=== PATIENT | female | born 1970 | race Caucasian/White ===

== ENCOUNTER 2023-01-17 08:26 | Outpatient (RCR) | payer OTHER, SELFPAY | END 2023-02-08 11:53 | disposition home or self-care (01) | LOC: PT 08:26 | PROVIDERS: PCP Family Medicine | DX: M54.12 Radiculopathy, cervical region (principal) | CPT/HCPCS: 97012; 97140 ==

== ENCOUNTER 2023-03-21 11:47 | Emergency (ER) | payer OTHER, SELFPAY ==
[2023-03-21 11:53] VITALS: BP 126/73; PULSE 69; RESP 20; TEMP 36.3; O2SAT 99; BMI 28.2
--- NOTE | 2023-03-21 12:12 | PC.NURSE ---
pt wears 3L of O2 at all times
--- NOTE | 2023-03-21 12:22 | ED_ITS ---
HPI - Back Pain/Injury General Chief Complaint: Back Pain/Injury Stated Complaint: BACK PAIN Time Seen by Provider: 03/21/23 12:07 Source: patient Mode of arrival: walk-in Limitations: no limitations History of Present Illness HPI Narrative: 52-year-old female presents for lower back pain. She fell a week ago. She was in pain management but she states she switching in part because she missed an appointment. She is vague on why exactly she is changing pain management doctors. Her pain is severe and continuous and worse when she moves. Related Data Previous Rx's Medication Instructions Recorded acetaminophen 300 mg-codeine 30 mg 1 tab PO Q6H PRN pain #14 tabs 03/21/23 tablet ibuprofen 800 mg tablet 800 mg PO Q8H PRN pain #20 tabs 03/21/23 Review of Systems ROS Narrative A ten point review of systems is negative except as noted above. Exam Narrative Exam Narrative: Nurses note and vital signs reviewed and patient is not hypoxic. General: The patient appears uncomfortable and is in no apparent distress. Her hips are flexed and she is laying on the examination cart. Skin: Warm, dry, no pallor noted. There is no rash noted. Head: Normocephalic, atraumatic Eye: Normal conjunctiva, no drainage Ears, Nose, Mouth, and Throat: oral mucosa is moist. Nares patent. Cardiovascular: Regular Rate and Rhythm Respiratory: Patient is in no distress, no accessory muscle use, lungs are clear to auscultation, no wheezing, rales or rhonchi Back: no bruise or abrasion or erythema or rash GI: nontender Musculoskeletal: The patient has no evidence of calf tenderness, no pitting edema, symmetrical pulses noted bilaterally Neurological: A&O, normal speech Psychiatric: Cooperative Constitutional Vital Signs, click to edit/add: Last Vital Signs Temp 97.4 F L 03/21/23 11:53 Pulse 69 03/21/23 11:53 Resp 20 03/21/23 11:53 BP 126/73 03/21/23 11:53 Pulse Ox 99 03/21/23 11:53 O2 Del Method Nasal Cannula 03/21/23 12:12 O2 Flow Rate 3 03/21/23 12:12 Course Vital Signs Vital signs: Vital Signs Temperature 97.4 F L 03/21/23 11:53 Pulse Rate 69 03/21/23 11:53 Respiratory Rate 20 03/21/23 11:53 Blood Pressure 126/73 03/21/23 11:53 Pulse Oximetry 99 03/21/23 11:53 Oxygen Delivery Method Nasal Cannula 03/21/23 11:53 Oxygen Delivery Flow Rate 3 03/21/23 11:53 Temperature 97.4 F L 03/21/23 11:53 Pulse Rate 69 03/21/23 11:53 Respiratory Rate 20 03/21/23 11:53 Blood Pressure 126/73 03/21/23 11:53 Pulse Oximetry 99 03/21/23 11:53 Oxygen Delivery Method Nasal Cannula 03/21/23 12:12 Oxygen Delivery Flow Rate 3 03/21/23 12:12 MDM - Back Pain/Injury MDM Narrative Medical decision making narrative: x-rays per radiologist showed no acute findings. She is in the process of get ting into pain management, referred by her neurologist. She'll be treated symptomatically. Treatment diagnosis and follow-up were discussed with the patient. Differential Diagnosis Differential diagnosis: Likely lumbar radiculopathy, sciatica and strain of lumbar region Imaging Data lumbar x-rays: Radiologist's impression: lumbar x-rays per radiologist show degenerative changes, no acute findings Discharge Plan Discharge Chief Complaint: Back Pain/Injury Clinical Impression: Strain of lumbar region Patient Disposition: Home, Self-Care Time of Disposition Decision: 14:01 Condition: Good Mode of Transportation: Private Vehicle Prescriptions / Home Meds: New ibuprofen 800 mg tablet 800 mg PO Q8H PRN (Reason: pain) Qty: 20 0RF acetaminophen-codeine 300-30 mg tablet 1 tab PO Q6H PRN (Reason: pain) Qty: 14 0RF Instructions: Chronic Back Pain (DC) Stand Alone Forms: Portal Instructions Referrals: IVON GIRON [Primary Care Provider] - 1 week
[2023-03-21] MEDS: ORPHENADRINE 60 MG/ 2 ML VIAL IM (12:29)
--- NOTE | 2023-03-21 13:01 | XR_ITS ---
The [address] [address] Patient Name: ROCK HERRERA MRN: [id number] date: 1970 Sex: F Assigned Patient Location: ER Current Patient Location: ER Accession/Order Number: [id number] Exam Date: 03/21/2023 12:15 Report Date: 03/21/2023 13:55 At the request of: TUTU NOLASCO Procedure: XR lumbar spine 2-3V EXAMINATION: XR lumbar spine 2-3V HISTORY: pain ; acute low back pain radiating to buttock region; no known injury COMPARISON: No relevant comparison available. FINDINGS: BONES: Mild degenerative facet arthropathy L3-4 through L5-S1. No fracture or spondylolisthesis. DISC SPACES: Mild narrowing L4-5, L5-S1. PARASPINOUS: Negative. No paraspinous abnormality is seen. OTHER: Negative. XR/XR lumbar spine 2-3V IMPRESSION: 1. Mild degenerative changes of lower lumbar spine. 2. No appreciable acute abnormality. Electronically authenticated by: DELORES ROACH Date: 03/21/2023 13:55
== END 2023-03-21 14:21 | disposition home or self-care (01) ==
PROVIDERS: Emergency Provider Emergency Medicine; PCP Family Medicine
DX: S39.012A Strain of muscle, fascia and tendon of lower back, initial encounter (principal); W19.XXXA Unspecified fall, initial encounter
CPT/HCPCS: 72100; 96372; 99284

== ENCOUNTER 2023-05-08 16:03 | Outpatient (OUT) | payer OTHER, SELFPAY ==
[2023-05-08 16:28] LABS: Basophils Absolute Auto 0.1 10^3/uL (0.0-0.1); Basophils Percent Auto 0.7 % (0.2-2.0); Eosinophils Absolute Auto 0.2 10^3/uL (0.0-0.7); Eosinophils Percent Auto 1.2 % (0.9-7.0); Hematocrit 37.6 % (36.0-48.0); Hemoglobin 12.5 g/dL (12.0-16.0); Immature Granulocytes Abs Auto 0.12 10^3/uL (0.00-0.03); Immature Granulocytes Pct Auto 0.9 % (0.0-0.5); Lymphocytes Absolute Auto 4.4 10^3/uL (1.2-3.8); Lymphocytes Percent Auto 32.7 % (20.5-60.0); Mean Corpuscular HGB Conc 33.2 g/dL (29.9-35.2); Mean Corpuscular Hemoglobin 31.4 pg (26.7-34.0); Mean Corpuscular Volume 94.5 fL (81.0-99.0); Monocytes Absolute Auto 0.8 10^3/uL (0.3-0.8); Monocytes Percent Auto 5.9 % (1.7-12.0); Neutrophils Percent Auto 58.6 % (43.0-75.0); Platelet Count 222 10^3/uL (150-450); Red Blood Count 3.98 10^6/uL (4.20-5.40); Red Cell Distribution Width 15.3 % (11.0-15.0); White Blood Count 13.6 10^3/uL (4.0-11.0)
[2023-05-08 16:35] LABS: Anion Gap 11.7; BUN Creatinine Ratio 5.9; Calcium 8.8 mg/dL (8.5-10.1); Carbon Dioxide 30.8 mmol/L (21.0-32.0); Chloride 103 mmol/L (98-107); Estimated GFR (African America >60 (>=60); Estimated GFR (Non-African Ame 57 (>=60); Glucose 180 mg/dL (74-106); Potassium 3.5 mmol/L (3.5-5.1); Sodium 142 mmol/L (136-145)
== END 2023-05-08 16:04 | disposition home or self-care (01) ==
LOC: CARD 16:09
PROVIDERS: PCP Family Medicine
DX: M76.71 Peroneal tendinitis, right leg (principal)
CPT/HCPCS: 36415; 80048; 85025

== ENCOUNTER 2023-05-09 14:20 | Outpatient (OUT) | payer OTHER, SELFPAY ==
--- NOTE | 2023-05-09 14:29 | ECG_ITS ---
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
== END 2023-05-09 14:21 | disposition home or self-care (01) ==
LOC: CARD 14:21
PROVIDERS: PCP Family Medicine
DX: M76.71 Peroneal tendinitis, right leg (principal)
CPT/HCPCS: 93005

== ENCOUNTER 2023-05-18 20:51 | Emergency (ER) | payer OTHER, SELFPAY ==
[2023-05-18] VITALS (27 sets, daily range): BP systolic 99–137; BP diastolic 65–105; PULSE 67–144; RESP 14–26; O2SAT 94–99
--- NOTE | 2023-05-18 22:03 | PC.NURSE ---
patient states she was at home and began to feel her heart rate increase, checked it at home and it was in the 210s . patient denies dizziness, lightheadedness. complains of shortness of breath with heart rate. patient states this happened before and was just told it was tachycardia , was not started on any cardiac meds. states she saw her pricer a few days ago and everything was normal. EKG obtained and provided to dr turner.
--- NOTE | 2023-05-18 22:06 | ECG_ITS ---
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: : 1970 Requested By: IVON GIRON Order Number: [id number] Reading MD: WILLA GAINES Measurements Intervals [place] Rate: 136 P: -79063 IL: -97035 QRS: 31 QRSD: 80 T: 230 QT: 260 QTc: 339 Interpretive Statements 1420 Undetermined rhythm (Possible supraventricular tachycardia) [address] depression 4364 Twave abnormality, possible anterolateral ischemia 4664 Twave abnormality, possible inferior ischemia 8305 Short QTc interval 9150 abnormal ECG Compared to ECG 05/09/2023 14:44:24 ST (T wave) deviation now present Sinus rhythm no longer present T-wave abnormality no longer present Possible ischemia still present Electronically Signed On 05-19-2023 18:42:38 EDT by WILLA GAINES
--- NOTE | 2023-05-18 22:06 | XR_ITS ---
The [address] [address] Patient Name: ROCK HERRERA MRN: [id number] date: 1970 Sex: F Assigned Patient Location: ER Current Patient Location: ER Accession/Order Number: [id number] Exam Date: 05/18/2023 22:45 Report Date: 05/18/2023 23:41 At the request of: TUTU NOLASCO Procedure: XR chest 1V EXAMINATION:XR chest 1V INDICATION:tachycardia COMPARISON:07/04/2022 TECHNIQUE:A single frontal view of the chest is submitted. FINDINGS: The cardiomediastinal silhouette is not enlarged. The pulmonary vascularity is within normal limits. No acute airspace disease is present within the lungs. There is no costophrenic angle blunting. XR/XR chest 1V IMPRESSION: No acute cardiopulmonary process in the chest. Electronically authenticated by: JESSICA HICKS Date: 05/18/2023 23:41
--- NOTE | 2023-05-18 22:07 | ED.ARRPALP1 ---
HPI - Arrhythmia/Palpitations General Chief Complaint: Arrhythmia/Palpitations Stated Complaint: FAST HR Time Seen by Provider: 05/18/23 21:18 History of Present Illness HPI narrative: 52-year-old female presents for fast heartbeat. She states started about for 5:00 this afternoon. She had this once before and she saw her doctor. She doesn't feel any chest pain or shortness of breath but she felt a little bit dizzy. It's been continuous. Related Data Previous Rx's Medication Instructions Recorded acetaminophen 300 mg-codeine 30 mg 1 tab PO Q6H PRN pain #14 tabs 03/21/23 tablet hydrocodone 5 mg-acetaminophen 325 1 tab PO Q6H PRN pain #14 tabs 03/21/23 mg tablet ibuprofen 800 mg tablet 800 mg PO Q8H PRN pain #20 tabs 03/21/23 Allergies Allergy/AdvReac Type Severity Reaction Status Date / Time adhesive tape Allergy Verified 05/18/23 21:13 amitriptyline Allergy Verified 05/18/23 21:13 amoxicillin Allergy Verified 05/18/23 21:13 atomoxetine [From Strattera] Allergy Verified 05/18/23 21:13 bupropion [From Wellbutrin] Allergy Verified 05/18/23 21:13 codeine Allergy Verified 05/18/23 21:13 dexamethasone Allergy Verified 05/18/23 21:13 divalproex sodium Allergy Verified 05/18/23 21:13 [From Depakote] duloxetine [From Cymbalta] Allergy Verified 05/18/23 21:13 fluticasone Allergy Verified 05/18/23 21:13 [From Advair Diskus] gabapentin Allergy Verified 05/18/23 21:13 ibuprofen Allergy Verified 05/18/23 21:13 ketorolac [From Toradol] Allergy Verified 05/18/23 21:13 meloxicam [From Mobic] Allergy Verified 05/18/23 21:13 methadone Allergy Verified 05/18/23 21:13 milnacipran [From Savella] Allergy Verified 05/18/23 21:13 nitrofurantoin Allergy Verified 05/18/23 21:13 [From Macrobid] paroxetine [From Paxil] Allergy Verified 05/18/23 21:13 Penicillins Allergy Verified 05/18/23 21:13 pregabalin [From Lyrica] Allergy Verified 05/18/23 21:13 ropinirole [From Requip] Allergy Verified 05/18/23 21:13 salmeterol Allergy Verified 05/18/23 21:13 [From Advair Diskus] topiramate [From Topamax] Allergy Verified 05/18/23 21:13 ziprasidone Allergy Verified 05/18/23 21:13 fish Allergy Uncoded 05/18/23 21:13 Review of Systems ROS Narrative A ten point review of systems is negative except as noted above. Exam Narrative Exam Narrative: Nurses note and vital signs reviewed and patient is not hypoxic. General: The patient appears well and in no apparent distress. Patient is resting comfortably on cart. Skin: Warm, dry, no pallor noted. There is no rash noted. Head: Normocephalic, atraumatic Eye: Normal conjunctiva, no drainage, EOMI. PERRL Ears, Nose, Mouth, and Throat: oral mucosa is moist. Nares patent. Mouth without vesicles. Ear canals patent. Tm's without Erythema Cardiovascular: Regular Rate and Rhythm and tachycardic Respiratory: Patient is in no distress, no accessory muscle use, lungs are clear to auscultation, no wheezing, rales or rhonchi Back: non-tender GI: Normal bowel sounds, no tenderness to palpation, no masses appreciated. No rebound, guarding, or rigidity noted. Musculoskeletal: The patient has no evidence of calf tenderness, no pitting edema, symmetrical pulses noted bilaterally Neurological: A&O, normal speech Psychiatric: Cooperative Constitutional Vital Signs, click to edit/add: Last Vital Signs Pulse 72 05/19/23 01:20 Resp 19 05/19/23 01:20 BP 117/83 05/19/23 01:15 Pulse Ox 96 05/19/23 01:20 Course Vital Signs Vital signs: Vital Signs Pulse Rate 140 H 05/18/23 21:04 Respiratory Rate 16 05/18/23 21:04 Blood Pressure 137/99 H 05/18/23 21:04 Pulse Oximetry 99 05/18/23 21:04 Pulse Rate 72 05/19/23 01:20 Respiratory Rate 19 05/19/23 01:20 Blood Pressure 117/83 05/19/23 01:15 Pulse Oximetry 96 05/19/23 01:20 MDM - Arrhythmia/Palpitations MDM Narrative Medical decision making narrative: the patient presented with tachycardia of undetermined rhythm. I suspect it might have been atrial flutter but I'm not certain. EKG does not reveal with certainty what the rhythm was. She was given IV Cardizem and she converted back into a sinus rhythm with a rate in the 70s and she is now asymptomatic and she remains so. 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 Treatment diagnosis and follow-up were discussed with the patient. Differential Diagnosis Differential diagnosis: Likely palpitations, sinus tachycardia, artial fibrillation, artial flutter and supraventricular tachycardia Lab Data Attestation: I reviewed the patient's lab results. Labs: Lab Results 05/18/23 Range/Units 22:20 WBC 16.7 H (4.0-11.0) 10^3/uL RBC 4.70 (4.20-5.40) 10^6/uL Hgb 14.9 (12.0-16.0) g/dL Hct 43.6 (36.0-48.0) % MCV 92.8 (81.0-99.0) fL MCH 31.7 (26.7-34.0) pg MCHC 34.2 (29.9-35.2) g/dL RDW 15.5 H (11.0-15.0) % Plt Count 300 (150-450) 10^3/uL MPV 10.1 (9.5-13.5) fL Neut % (Auto) 60.4 (43.0-75.0) % Lymph % (Auto) 31.2 (20.5-60.0) % [place] % (Auto) 6.7 (1.7-12.0) % Eos % (Auto) 0.1 L (0.9-7.0) % Baso % (Auto) 0.8 (0.2-2.0) % Neut # (Auto) 10.1 H (1.4-6.5) 10^3/uL Lymph # (Auto) 5.2 H (1.2-3.8) 10^3/uL [place] # (Auto) 1.1 H (0.3-0.8) 10^3/uL Eos # (Auto) 0.0 (0.0-0.7) 10^3/uL Baso # (Auto) 0.1 (0.0-0.1) 10^3/uL Abs Immat Gran (auto) 0.13 H (0.00-0.03) 10^3/uL Imm/Tot Granulo (auto) 0.8 H (0.0-0.5) % Sodium 136 (136-145) mmol/L Potassium 3.8 (3.5-5.1) mmol/L Chloride 99 (98-107) mmol/L Carbon Dioxide 26.0 (21.0-32.0) mmol/L Anion Gap 14.8 BUN 9.0 (7.0-18.0) mg/dL Creatinine 1.18 H (0.55-1.02) mg/dL Est GFR ( Amer) 58 L (>=60) Est GFR (Non-Af Amer) 48 L (>=60) BUN/Creatinine Ratio 7.6 Glucose 158 H (74-106) mg/dL Calcium 9.7 (8.5-10.1) mg/dL Troponin I High Sens 5.1 (4.0-51.3) pg/mL Imaging Data Chest x-ray: Radiologist's impression: Procedure: XR chest 1V EXAMINATION:XR chest 1VINDICATION:tachycardiaCOMPARISON:07/04/2022TECHNIQUE:A single frontal view of the chest is submitted.FINDINGS:The cardiomediastinal silhouette is not enlarged. The pulmonary vascularity iswithin normal limits. No acute airspace disease is present within the lungs. There is no costophrenic angle blunting.IMPRESSION: No acute cardiopulmonary process in the chest.Electronically authenticated by: JESSICA HICKS Date: 05/18/2023 23:41 ECG Data Attestation: I personally reviewed and interpreted this ECG as follows: (EKG initially on my interpretation shows tachycardia, uncertain rhythm with a rate of 136. Repeat after treatment shows sinus rhythm with a rate of 68.) Discharge Plan Discharge Chief Complaint: Arrhythmia/Palpitations Clinical Impression: Tachycardia Patient Disposition: Home, Self-Care Time of Disposition Decision: 01:35 Condition: Good Mode of Transportation: Private Vehicle Prescriptions / Home Meds: No Action ibuprofen 800 mg tablet 800 mg PO Q8H PRN (Reason: pain) Qty: 20 0RF acetaminophen-codeine 300-30 mg tablet 1 tab PO Q6H PRN (Reason: pain) Qty: 14 0RF hydrocodone-acetaminophen 5-325 mg tablet 1 tab PO Q6H PRN (Reason: pain) Qty: 14 0RF Instructions: Tachycardia (ED) Additional Instructions: Call your sewing department supervisor on Saturday morning for follow-up Stand Alone Forms: Portal Instructions Referrals: IVON GIRON [Primary Care Provider] - 1 week
[2023-05-18] MEDS: DILTIAZEM HCL 25 MG/5 ML VIAL 10 MG IV (22:18)
[2023-05-18 22:26] LABS: Basophils Absolute Auto 0.1 10^3/uL (0.0-0.1); Basophils Percent Auto 0.8 % (0.2-2.0); Eosinophils Percent Auto 0.1 % (0.9-7.0); Hematocrit 43.6 % (36.0-48.0); Hemoglobin 14.9 g/dL (12.0-16.0); Immature Granulocytes Abs Auto 0.13 10^3/uL (0.00-0.03); Immature Granulocytes Pct Auto 0.8 % (0.0-0.5); Lymphocytes Absolute Auto 5.2 10^3/uL (1.2-3.8); Lymphocytes Percent Auto 31.2 % (20.5-60.0); Mean Corpuscular HGB Conc 34.2 g/dL (29.9-35.2); Mean Corpuscular Hemoglobin 31.7 pg (26.7-34.0); Mean Corpuscular Volume 92.8 fL (81.0-99.0); Mean Platelet Volume 10.1 fL (9.5-13.5); Monocytes Absolute Auto 1.1 10^3/uL (0.3-0.8); Monocytes Percent Auto 6.7 % (1.7-12.0); Neutrophils Absolute Auto 10.1 10^3/uL (1.4-6.5); Neutrophils Percent Auto 60.4 % (43.0-75.0); Platelet Count 300 10^3/uL (150-450); Red Cell Distribution Width 15.5 % (11.0-15.0); White Blood Count 16.7 10^3/uL (4.0-11.0)
[2023-05-18 22:55] LABS: Anion Gap 14.8; BUN Creatinine Ratio 7.6; Calcium 9.7 mg/dL (8.5-10.1); Chloride 99 mmol/L (98-107); Estimated GFR (African America 58 (>=60); Estimated GFR (Non-African Ame 48 (>=60); Glucose 158 mg/dL (74-106); Potassium 3.8 mmol/L (3.5-5.1); Sodium 136 mmol/L (136-145); Troponin I High Sensitivity 5.1 pg/mL (4.0-51.3)
[2023-05-18] MEDS: DILTIAZEM HCL 25 MG/5 ML VIAL 20 MG IV (23:04)
--- NOTE | 2023-05-18 23:11 | ECG_ITS ---
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
[2023-05-19] VITALS (17 sets, daily range): BP systolic 92–119; BP diastolic 60–83; PULSE 69–81; RESP 14–36; O2SAT 95–99
== END 2023-05-19 01:50 | disposition home or self-care (01) ==
PROVIDERS: Emergency Provider Emergency Medicine; PCP Family Medicine
DX: R00.0 Tachycardia, unspecified (principal); R42 Dizziness and giddiness
CPT/HCPCS: 36415; 71045; 80048; 84484; 85025; 93005; 96374; 96376; 99285

== ENCOUNTER 2023-06-27 09:33 | Emergency (ER) | payer OTHER, SELFPAY ==
[2023-06-27] VITALS (34 sets, daily range): BP systolic 98–125; BP diastolic 70–95; PULSE 72–153; RESP 12–29; TEMP 36.4; O2SAT 91–100; BMI 29.9
--- NOTE | 2023-06-27 09:47 | ECG_ITS ---
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 depression 7500 Abnormal QRS-T angle 8102 Low QRS voltage in chest leads 9150 abnormal ECG Electronically Signed On 06-28-2023 7:07:43 EST by WILLA GAINES
--- NOTE | 2023-06-27 09:47 | XR_ITS ---
The [address] [address] Patient Name: ROCK HERRERA MRN: [id number] date: 1970 Sex: F Assigned Patient Location: ER Current Patient Location: ER Accession/Order Number: [id number] Exam Date: 06/27/2023 10:30 Report Date: 06/27/2023 11:24 At the request of: TUTU NOLASCO Procedure: XR chest 1V XR chest 1V, 06/27/2023 10:30 AM EST, OH001 INDICATION: tachycardic COMPARISON: 05/18/2023. TECHNIQUE: Frontal view of the chest obtained. FINDINGS: The heart is normal in size. The aorta and mediastinum appear unremarkable. The pulmonary vasculature is normal. The lungs are clear. There is no evidence of pneumothorax or pleural effusion. The osseous structures appear intact. XR/XR chest 1V IMPRESSION: No active pulmonary process. Electronically authenticated by: TREVIN MONTANA Date: 06/27/2023 11:24
--- NOTE | 2023-06-27 09:48 | ED.GENADUL1 ---
HPI - General Adult General Chief complaint: Weakness Stated complaint: FAST HEART RATE Time Seen by Provider: 06/27/23 09:36 Source: patient Mode of arrival: Wheelchair History of Present Illness HPI narrative: 52-year-old female presents to the emergency department for rapid heartbeat. She states it was like at all night and she couldn't sleep. She is not complaining of chest pain or shortness of breath or fever. No vomiting. This happened about a month ago. At that time she had tachycardia and was seen in this emergency department and was given IV Cardizem. She converted back into a normal sinus rhythm and followed up with cardiology and she's been having an event monitor for about the last two weeks. Her symptom is continuous. Related Data Previous Rx's Medication Instructions Recorded acetaminophen 300 mg-codeine 30 mg 1 tab PO Q6H PRN pain #14 tabs 03/21/23 tablet hydrocodone 5 mg-acetaminophen 325 1 tab PO Q6H PRN pain #14 tabs 03/21/23 mg tablet ibuprofen 800 mg tablet 800 mg PO Q8H PRN pain #20 tabs 03/21/23 Allergies Allergy/AdvReac Type Severity Reaction Status Date / Time adhesive tape Allergy Verified 05/18/23 21:13 amitriptyline Allergy Verified 05/18/23 21:13 amoxicillin Allergy Verified 05/18/23 21:13 atomoxetine [From Strattera] Allergy Verified 05/18/23 21:13 bupropion [From Wellbutrin] Allergy Verified 05/18/23 21:13 codeine Allergy Verified 05/18/23 21:13 dexamethasone Allergy Verified 05/18/23 21:13 divalproex sodium Allergy Verified 05/18/23 21:13 [From Depakote] duloxetine [From Cymbalta] Allergy Verified 05/18/23 21:13 fluticasone Allergy Verified 05/18/23 21:13 [From Advair Diskus] gabapentin Allergy Verified 05/18/23 21:13 ibuprofen Allergy Verified 05/18/23 21:13 ketorolac [From Toradol] Allergy Verified 05/18/23 21:13 meloxicam [From Mobic] Allergy Verified 05/18/23 21:13 methadone Allergy Verified 05/18/23 21:13 milnacipran [From Savella] Allergy Verified 05/18/23 21:13 nitrofurantoin Allergy Verified 05/18/23 21:13 [From Macrobid] paroxetine [From Paxil] Allergy Verified 05/18/23 21:13 Penicillins Allergy Verified 05/18/23 21:13 pregabalin [From Lyrica] Allergy Verified 05/18/23 21:13 ropinirole [From Requip] Allergy Verified 05/18/23 21:13 salmeterol Allergy Verified 05/18/23 21:13 [From Advair Diskus] topiramate [From Topamax] Allergy Verified 05/18/23 21:13 ziprasidone Allergy Verified 05/18/23 21:13 fish Allergy Uncoded 05/18/23 21:13 Review of Systems ROS Narrative A ten point review of systems is negative except as noted above. Exam Narrative Exam Narrative: Nurses note and vital signs reviewed and patient is not hypoxic. General: The patient appears well and in no apparent distress. Patient is resting comfortably on cart. Skin: Warm, dry, no pallor noted. There is no rash noted. Head: Normocephalic, atraumatic Eye: Normal conjunctiva, no drainage Ears, Nose, Mouth, and Throat: oral mucosa is moist. Nares patent. Cardiovascular: Regular Rate and Rhythm and tachycardic Respiratory: Patient is in no distress, no accessory muscle use, lungs are clear to auscultation, no wheezing, rales or rhonchi Back: non-tender GI: soft and nontender Musculoskeletal: The patient has no evidence of calf tenderness, no pitting edema, symmetrical pulses noted bilaterally Neurological: A&O, normal speech Psychiatric: Cooperative Constitutional Vital Signs, click to edit/add: Last Vital Signs Temp 97.6 F 06/27/23 09:39 Pulse 77 06/27/23 12:50 Resp 17 06/27/23 12:50 BP 103/77 06/27/23 12:45 Pulse Ox 100 06/27/23 12:50 O2 Del Method Nasal Cannula 06/27/23 11:46 O2 Flow Rate 2 06/27/23 11:46 Course Vital Signs Vital signs: Vital Signs Temperature 97.6 F 06/27/23 09:39 Pulse Rate 150 H 06/27/23 09:39 Respiratory Rate 18 06/27/23 09:39 Blood Pressure 120/94 H 06/27/23 09:39 Pulse Oximetry 100 06/27/23 09:39 Temperature 97.6 F 06/27/23 09:39 Pulse Rate 77 06/27/23 12:50 Respiratory Rate 17 06/27/23 12:50 Blood Pressure 103/77 06/27/23 12:45 Pulse Oximetry 100 06/27/23 12:50 Oxygen Delivery Method Nasal Cannula 06/27/23 11:46 Oxygen Delivery Flow Rate 2 06/27/23 11:46 Medical Decision Making MDM Narrative Medical decision making narrative: the patient presented with tachycardia. Specific rhythm uncertain but I suspect it might be atrial flutter. She has an event monitor that she has activated. She was given several doses of IV Cardizem without change and then she was given IV metoprolol back to sinus rhythm and remains so. She is now asymptomatic and will be discharged home. Treatment diagnosis and follow-up were discussed with the patient. Differential Diagnosis Differential Diagnosis: atrial fibrillation, atrial flutter, supraventricular tachycardia, sinus t Lab Data Lab results reviewed: Yes I reviewed the patient's lab results Labs: Lab Results 06/27/23 Range/Units 09:59 WBC 15.1 H (4.0-11.0) 10^3/uL RBC 5.14 (4.20-5.40) 10^6/uL Hgb 16.6 H (12.0-16.0) g/dL Hct 50.5 H (36.0-48.0) % MCV 98.2 (81.0-99.0) fL MCH 32.3 (26.7-34.0) pg MCHC 32.9 (29.9-35.2) g/dL RDW 15.1 H (11.0-15.0) % Plt Count 279 (150-450) 10^3/uL MPV 10.6 (9.5-13.5) fL Neut % (Auto) 59.9 (43.0-75.0) % Lymph % (Auto) 31.1 (20.5-60.0) % [place] % (Auto) 6.9 (1.7-12.0) % Eos % (Auto) 0.7 L (0.9-7.0) % Baso % (Auto) 0.7 (0.2-2.0) % Neut # (Auto) 9.0 H (1.4-6.5) 10^3/uL Lymph # (Auto) 4.7 H (1.2-3.8) 10^3/uL [place] # (Auto) 1.0 H (0.3-0.8) 10^3/uL Eos # (Auto) 0.1 (0.0-0.7) 10^3/uL Baso # (Auto) 0.1 (0.0-0.1) 10^3/uL Abs Immat Gran (auto) 0.11 H (0.00-0.03) 10^3/uL Imm/Tot Granulo (auto) 0.7 H (0.0-0.5) % Sodium 139 (136-145) mmol/L Potassium 3.9 (3.5-5.1) mmol/L Chloride 99 (98-107) mmol/L Carbon Dioxide 29.9 (21.0-32.0) mmol/L Anion Gap 14.0 BUN 6.0 L (7.0-18.0) mg/dL Creatinine 1.23 H (0.55-1.02) mg/dL Est GFR ( Amer) 56 L (>=60) Est GFR (Non-Af Amer) 46 L (>=60) BUN/Creatinine Ratio 4.9 Glucose 151 H (74-106) mg/dL Calcium 10.1 (8.5-10.1) mg/dL Troponin I High Sens 6.5 (4.0-51.3) pg/mL Imaging Data Chest x-ray: Radiologist's impression: Procedure: XR chest 1V XR chest 1V, 06/27/2023 10:30 AM EST, OH001 INDICATION: tachycardic COMPARISON: 05/18/2023. TECHNIQUE: Frontal view of the chest obtained. FINDINGS: The heart is normal in size. The aorta and mediastinum appear unremarkable. The pulmonary vasculature is normal. The lungs are clear. There is no evidence of pneumothorax or pleural effusion. The osseous structures appear intact. IMPRESSION: No active pulmonary process. Electronically authenticated by: TREVIN MONTANA Date: 06/27 Critical Care Time Critical Care Time Critical Care Time: Yes Total Critical Care Time: 35 Attestation: Due to the high probability of sudden and clinically significant deterioration in the patient's condition he/she required the highest level of my preparedness to intervene urgently I provided critical care time including documentation time, medication orders and management, reevaluation, vital sign assessment, ordering and reviewing of lab tests, ordering and reviewing of x-ray studies, and admission orders. Aggregate critical care time is 35 minutes including only time during which I was engaged in work directly related to his/her care and did not include time spent treating other patients simultaneously. Discharge Plan Discharge Chief Complaint: Weakness Clinical Impression: Tachycardia Patient Disposition: Home, Self-Care Time of Disposition Decision: 13:15 Condition: Good Mode of Transportation: Private Vehicle Prescriptions / Home Meds: No Action ibuprofen 800 mg tablet 800 mg PO Q8H PRN (Reason: pain) Qty: 20 0RF acetaminophen-codeine 300-30 mg tablet 1 tab PO Q6H PRN (Reason: pain) Qty: 14 0RF hydrocodone-acetaminophen 5-325 mg tablet 1 tab PO Q6H PRN (Reason: pain) Qty: 14 0RF Instructions: Tachycardia (ED) Additional Instructions: follow-up with your improvement rn Stand Alone Forms: Portal Instructions Referrals: IVON GIRON [Primary Care Provider] - 1 week
[2023-06-27] MEDS: DILTIAZEM HCL 25 MG/5 ML VIAL 10 MG IV ×3 (10:03→11:27)
[2023-06-27 10:04] LABS: Basophils Absolute Auto 0.1 10^3/uL (0.0-0.1); Basophils Percent Auto 0.7 % (0.2-2.0); Eosinophils Absolute Auto 0.1 10^3/uL (0.0-0.7); Eosinophils Percent Auto 0.7 % (0.9-7.0); Hematocrit 50.5 % (36.0-48.0); Hemoglobin 16.6 g/dL (12.0-16.0); Immature Granulocytes Abs Auto 0.11 10^3/uL (0.00-0.03); Immature Granulocytes Pct Auto 0.7 % (0.0-0.5); Lymphocytes Absolute Auto 4.7 10^3/uL (1.2-3.8); Lymphocytes Percent Auto 31.1 % (20.5-60.0); Mean Corpuscular HGB Conc 32.9 g/dL (29.9-35.2); Mean Corpuscular Hemoglobin 32.3 pg (26.7-34.0); Mean Corpuscular Volume 98.2 fL (81.0-99.0); Mean Platelet Volume 10.6 fL (9.5-13.5); Monocytes Percent Auto 6.9 % (1.7-12.0); Neutrophils Percent Auto 59.9 % (43.0-75.0); Platelet Count 279 10^3/uL (150-450); Red Blood Count 5.14 10^6/uL (4.20-5.40); Red Cell Distribution Width 15.1 % (11.0-15.0); White Blood Count 15.1 10^3/uL (4.0-11.0)
[2023-06-27 10:11] LABS: BUN Creatinine Ratio 4.9; Calcium 10.1 mg/dL (8.5-10.1); Carbon Dioxide 29.9 mmol/L (21.0-32.0); Chloride 99 mmol/L (98-107); Estimated GFR (African America 56 (>=60); Estimated GFR (Non-African Ame 46 (>=60); Glucose 151 mg/dL (74-106); Potassium 3.9 mmol/L (3.5-5.1); Sodium 139 mmol/L (136-145)
--- NOTE | 2023-06-27 10:16 | ECG_ITS ---
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
[2023-06-27 10:21] LABS: Troponin I High Sensitivity 6.5 pg/mL (4.0-51.3)
--- NOTE | 2023-06-27 11:44 | ECG_ITS ---
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
[2023-06-27] MEDS: OXYCODONE HCL/ACETAMINOPHEN 5MG/325MG 1 TAB PO (11:51)
[2023-06-27] MEDS: METOPROLOL TARTRATE 5 MG/5 ML VIAL IVP (12:07)
--- NOTE | 2023-06-27 12:22 | ECG_ITS ---
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
== END 2023-06-27 13:39 | disposition home or self-care (01) ==
PROVIDERS: Emergency Provider Emergency Medicine; PCP Family Medicine
DX: R00.0 Tachycardia, unspecified (principal)
CPT/HCPCS: 36415; 71045; 80048; 84484; 85025; 93005; 96374; 96375; 96376; 99285

== ENCOUNTER 2023-07-09 19:14 | Emergency (ER) | payer OTHER, SELFPAY ==
[2023-07-09 19:33] VITALS: BP 98/70; PULSE 89; RESP 20; TEMP 37.1; O2SAT 97; BMI 30.9
== END 2023-07-09 23:00 | disposition left against medical advice (07) ==
PROVIDERS: Emergency Provider Internal Medicine; PCP Family Medicine
DX: Z53.21 Procedure and treatment not carried out due to patient leaving prior to being seen by health care provider (principal)
CPT/HCPCS: 99281

== ENCOUNTER 2023-08-03 15:38 | Emergency (ER) | payer OTHER, SELFPAY ==
[2023-08-03 15:41] VITALS: BP 153/91; PULSE 88; RESP 18; TEMP 36.6; O2SAT 95; BMI 30.3
[2023-08-03 16:22] LABS: Anion Gap 10.6; BUN Creatinine Ratio 3.6; Calcium 9.5 mg/dL (8.5-10.1); Carbon Dioxide 29.8 mmol/L (21.0-32.0); Chloride 99 mmol/L (98-107); Estimated GFR (African America >60 (>=60); Estimated GFR (Non-African Ame 52 (>=60); Glucose 141 mg/dL (74-106); Potassium 3.4 mmol/L (3.5-5.1); Sodium 136 mmol/L (136-145)
--- NOTE | 2023-08-03 16:37 | ED.GENADUL1 ---
HPI - General Adult General Chief complaint: Extremity Injury, Lower Stated complaint: LE PAIN Time Seen by Provider: 08/03/23 15:45 Source: patient Mode of arrival: walk-in History of Present Illness HPI narrative: patient complains of pain in both calves. No injury or change in activity to account for the pain. She is concerned that her potassium might be low as this has caused leg pain in the past. No redness, swelling to the areas. No fever or vomiting. Related Data Previous Rx's Medication Instructions Recorded acetaminophen 300 mg-codeine 30 mg 1 tab PO Q6H PRN pain #14 tabs 03/21/23 tablet hydrocodone 5 mg-acetaminophen 325 1 tab PO Q6H PRN pain #14 tabs 03/21/23 mg tablet ibuprofen 800 mg tablet 800 mg PO Q8H PRN pain #20 tabs 03/21/23 Allergies Allergy/AdvReac Type Severity Reaction Status Date / Time adhesive tape Allergy Verified 07/09/23 19:38 amitriptyline Allergy Verified 07/09/23 19:38 amoxicillin Allergy Verified 07/09/23 19:38 atomoxetine [From Strattera] Allergy Verified 07/09/23 19:38 bupropion [From Wellbutrin] Allergy Verified 07/09/23 19:38 codeine Allergy Verified 07/09/23 19:38 dexamethasone Allergy Verified 07/09/23 19:38 divalproex sodium Allergy Verified 07/09/23 19:38 [From Depakote] duloxetine [From Cymbalta] Allergy Verified 07/09/23 19:38 fluticasone Allergy Verified 07/09/23 19:38 [From Advair Diskus] gabapentin Allergy Verified 07/09/23 19:38 ibuprofen Allergy Verified 07/09/23 19:38 ketorolac [From Toradol] Allergy Verified 07/09/23 19:38 meloxicam [From Mobic] Allergy Verified 07/09/23 19:38 methadone Allergy Verified 07/09/23 19:38 milnacipran [From Savella] Allergy Verified 07/09/23 19:38 nitrofurantoin Allergy Verified 07/09/23 19:38 [From Macrobid] paroxetine [From Paxil] Allergy Verified 07/09/23 19:38 Penicillins Allergy Verified 07/09/23 19:38 pregabalin [From Lyrica] Allergy Verified 07/09/23 19:38 ropinirole [From Requip] Allergy Verified 07/09/23 19:38 salmeterol Allergy Verified 07/09/23 19:38 [From Advair Diskus] topiramate [From Topamax] Allergy Verified 07/09/23 19:38 ziprasidone Allergy Verified 07/09/23 19:38 fish Allergy Uncoded 07/09/23 19:38 PFSH PFSH Social History Smoking status: Former smoker Exam Narrative Exam Narrative: Nurses notes and vital signs reviewed and patient is not hypoxic. afebrile General: Well-appearing and in no apparent distress. Skin: Warm, dry, no pallor noted. No rash. Eye: Pupils are equal, round and EOMI. No scleral icterus. Cardio: normal peripheral perfusion Respiratory: No accessory muscle use or respiratory distress. Musculoskeletal: normal ROM, no popliteal tenderness, no lower extremity edema/swelling Tenderness of both calves without associated erythema, swelling or skin change. Qasim negative. Neurological: A&O x4. No cranial nerve dysfunction observed. No truncal ataxia. Moves all extremities. Sensation intact. Psychiatric: Cooperative and interactive. Normal mood and affect. Constitutional Vital Signs, click to edit/add: Last Vital Signs Temp 97.8 F 08/03/23 15:41 Pulse 88 08/03/23 15:41 Resp 18 08/03/23 15:41 BP 153/91 H 08/03/23 15:41 Pulse Ox 95 08/03/23 15:41 O2 Del Method Room Air 08/03/23 15:41 Course Vital Signs Vital signs: Vital Signs Temperature 97.8 F 08/03/23 15:41 Pulse Rate 88 08/03/23 15:41 Respiratory Rate 18 08/03/23 15:41 Blood Pressure 153/91 H 08/03/23 15:41 Pulse Oximetry 95 08/03/23 15:41 Oxygen Delivery Method Room Air 08/03/23 15:41 Temperature 97.8 F 08/03/23 15:41 Pulse Rate 88 08/03/23 15:41 Respiratory Rate 18 08/03/23 15:41 Blood Pressure 153/91 H 08/03/23 15:41 Pulse Oximetry 95 08/03/23 15:41 Oxygen Delivery Method Room Air 08/03/23 15:41 Medical Decision Making MDM Narrative Medical decision making narrative: BMP revealed potassium 3.4 Patient given oral potassium. She declined offer for NSAIDs or salicylate based pain meds. Lab Data Lab results reviewed: Yes I reviewed the patient's lab results Labs: Lab Results 08/03/23 Range/Units 16:07 Sodium 136 (136-145) mmol/L Potassium 3.4 L (3.5-5.1) mmol/L Chloride 99 (98-107) mmol/L Carbon Dioxide 29.8 (21.0-32.0) mmol/L Anion Gap 10.6 BUN 4.0 L (7.0-18.0) mg/dL Creatinine 1.10 H (0.55-1.02) mg/dL Est GFR ( Amer) >60 (>=60) Est GFR (Non-Af Amer) 52 L (>=60) BUN/Creatinine Ratio 3.6 Glucose 141 H (74-106) mg/dL Calcium 9.5 (8.5-10.1) mg/dL Discharge Plan Discharge Chief Complaint: Extremity Injury, Lower Clinical Impression: Acute leg pain, Acute hypokalemia Time of Disposition Decision: 16:39 Prescriptions / Home Meds: No Action ibuprofen 800 mg tablet 800 mg PO Q8H PRN (Reason: pain) Qty: 20 0RF acetaminophen-codeine 300-30 mg tablet 1 tab PO Q6H PRN (Reason: pain) Qty: 14 0RF hydrocodone-acetaminophen 5-325 mg tablet 1 tab PO Q6H PRN (Reason: pain) Qty: 14 0RF Instructions: Hypokalemia (ED), Leg Pain (ED) Stand Alone Forms: Portal Instructions Referrals: IVON GIRON [Primary Care Provider] - 1 week
[2023-08-03] MEDS: POTASSIUM CHLORIDE 10 MEQ ER TABLET 40 MEQ PO (17:00)
== END 2023-08-03 17:06 | disposition home or self-care (01) ==
PROVIDERS: Emergency Provider Emergency Medicine; PCP Family Medicine
DX: E87.6 Hypokalemia (principal); M79.605 Pain in left leg; M79.604 Pain in right leg; Z87.891 Personal history of nicotine dependence
CPT/HCPCS: 36415; 80048; 99283

== ENCOUNTER 2023-08-12 12:14 | Emergency (ER) | payer OTHER, SELFPAY ==
[2023-08-12 12:19] VITALS: BP 143/91; PULSE 75; RESP 20; TEMP 36.6; O2SAT 96
--- NOTE | 2023-08-12 12:35 | ED.GENADUL1 ---
HPI - General Adult General Chief complaint: Skin/Abscess/Foreign Body Stated complaint: hives Time Seen by Provider: 08/12/23 12:24 Source: patient Mode of arrival: walk-in Limitations: no limitations History of Present Illness HPI narrative: 53-year-old female presents for rash. It's all over her body and it started this morning when she awoke. She didn't have it yesterday. She has not been on any new medications or used any new products such as soaps or detergents. She has not eaten any unusual food. No difficulty breathing or swallowing. It is pruritic and continuous. Related Data Previous Rx's Medication Instructions Recorded acetaminophen 300 mg-codeine 30 mg 1 tab PO Q6H PRN pain #14 tabs 03/21/23 tablet hydrocodone 5 mg-acetaminophen 325 1 tab PO Q6H PRN pain #14 tabs 03/21/23 mg tablet ibuprofen 800 mg tablet 800 mg PO Q8H PRN pain #20 tabs 03/21/23 prednisone 10 mg tablet See Rx Instructions .Route 08/12/23 .COMPLEX #18 tabs Allergies Allergy/AdvReac Type Severity Reaction Status Date / Time adhesive tape Allergy Verified 07/09/23 19:38 amitriptyline Allergy Verified 07/09/23 19:38 amoxicillin Allergy Verified 07/09/23 19:38 atomoxetine [From Strattera] Allergy Verified 07/09/23 19:38 bupropion [From Wellbutrin] Allergy Verified 07/09/23 19:38 codeine Allergy Verified 07/09/23 19:38 dexamethasone Allergy Verified 07/09/23 19:38 divalproex sodium Allergy Verified 07/09/23 19:38 [From Depakote] duloxetine [From Cymbalta] Allergy Verified 07/09/23 19:38 fluticasone Allergy Verified 07/09/23 19:38 [From Advair Diskus] gabapentin Allergy Verified 07/09/23 19:38 ibuprofen Allergy Verified 07/09/23 19:38 ketorolac [From Toradol] Allergy Verified 07/09/23 19:38 meloxicam [From Mobic] Allergy Verified 07/09/23 19:38 methadone Allergy Verified 07/09/23 19:38 milnacipran [From Savella] Allergy Verified 07/09/23 19:38 nitrofurantoin Allergy Verified 07/09/23 19:38 [From Macrobid] paroxetine [From Paxil] Allergy Verified 07/09/23 19:38 Penicillins Allergy Verified 07/09/23 19:38 pregabalin [From Lyrica] Allergy Verified 07/09/23 19:38 ropinirole [From Requip] Allergy Verified 07/09/23 19:38 salmeterol Allergy Verified 07/09/23 19:38 [From Advair Diskus] topiramate [From Topamax] Allergy Verified 07/09/23 19:38 ziprasidone Allergy Verified 07/09/23 19:38 fish Allergy Uncoded 07/09/23 19:38 Review of Systems ROS Narrative A ten point review of systems is negative except as noted above. PFSH PFSH Social History Smoking status: Never smoker Exam Narrative Exam Narrative: Nurses note and vital signs reviewed and patient is not hypoxic. General: The patient appears well and in no apparent distress. Patient is resting comfortably on cart. Skin: Warm, dry, no pallor noted. There is erythematous rash scattered on most areas of her skin. No tongue swelling. She is handling her oral secretions well. Head: Normocephalic, atraumatic Eye: Normal conjunctiva, no drainage Ears, Nose, Mouth, and Throat: oral mucosa is moist. Nares patent. Cardiovascular: Regular Rate and Rhythm Respiratory: Patient is in no distress, no accessory muscle use, lungs are clear to auscultation, no wheezing, rales or rhonchi Back: non-tender, no CVA tenderness bilaterally to percussion. GI: soft and nontender Musculoskeletal: The patient has no evidence of calf tenderness, no pitting edema, symmetrical pulses noted bilaterally Neurological: A&O, normal speech Psychiatric: Cooperative Constitutional Vital Signs, click to edit/add: Last Vital Signs Temp 97.9 F 08/12/23 12:19 Pulse 75 08/12/23 12:19 Resp 20 08/12/23 12:19 BP 143/91 H 08/12/23 12:19 Pulse Ox 96 08/12/23 12:19 O2 Del Method Room Air 08/12/23 12:19 Course Vital Signs Vital signs: Vital Signs Temperature 97.9 F 08/12/23 12:19 Pulse Rate 75 08/12/23 12:19 Respiratory Rate 20 08/12/23 12:19 Blood Pressure 143/91 H 08/12/23 12:19 Pulse Oximetry 96 08/12/23 12:19 Oxygen Delivery Method Room Air 08/12/23 12:19 Temperature 97.9 F 08/12/23 12:19 Pulse Rate 75 08/12/23 12:19 Respiratory Rate 20 08/12/23 12:19 Blood Pressure 143/91 H 08/12/23 12:19 Pulse Oximetry 96 08/12/23 12:19 Oxygen Delivery Method Room Air 08/12/23 12:19 Medical Decision Making MDM Narrative Medical decision making narrative: the patient is given IM Solu-Medrol and prescribed a short course of low-dose prednisone. She was also given IM Benadryl here. She was advised to keep a close eye on her blood sugar. Treatment diagnosis and follow-up were discussed with the patient Differential Diagnosis Differential Diagnosis: nonspecific rash, nonspecific reaction Discharge Plan Discharge Chief Complaint: Skin/Abscess/Foreign Body Clinical Impression: Hives Patient Disposition: Home, Self-Care Time of Disposition Decision: 12:33 Condition: Good Mode of Transportation: Private Vehicle Prescriptions / Home Meds: New prednisone 10 mg tablet See Rx Instructions .ROUTE .COMPLEX Qty: 18 0RF Rx Instructions: 3 by mouth daily for three days then 2 by mouth daily for three days then 1 by mouth daily for three days No Action ibuprofen 800 mg tablet 800 mg PO Q8H PRN (Reason: pain) Qty: 20 0RF acetaminophen-codeine 300-30 mg tablet 1 tab PO Q6H PRN (Reason: pain) Qty: 14 0RF hydrocodone-acetaminophen 5-325 mg tablet 1 tab PO Q6H PRN (Reason: pain) Qty: 14 0RF Instructions: Urticaria (ED) Stand Alone Forms: Portal Instructions Referrals: IVON GIRON [Primary Care Provider] - 1 week
[2023-08-12] MEDS: METHYLPREDNISOLONE SOD SUCC PF 125 MG/2 ML VIAL IM (12:45)
[2023-08-12] MEDS: DIPHENHYDRAMINE HCL 50 MG/ML (1ML) VIAL 25 MG IM (12:45)
== END 2023-08-12 12:55 | disposition home or self-care (01) ==
PROVIDERS: Emergency Provider Emergency Medicine; PCP Family Medicine
DX: L50.9 Urticaria, unspecified (principal)
CPT/HCPCS: 96372; 99284; J2930

== ENCOUNTER 2023-09-20 08:34 | Outpatient (OUT) | payer OTHER, SELFPAY ==
--- OUTSIDE RECORDS SUMMARY | 2023-09-20 08:55 | XMS_ITS | CCD ---
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 Layer Name Role Phone ROBERT GIRON Primary Care Physician Valarie Herrera Unavailable VALARIE HERRERA Attending Unavailable FURLOLAURIE, DR ROBERT Santiago Primary Care Unavailable JAVIER, VALARIE Admitting Unavailable NEFNICOLE DENG Consulting Unavailable JAVIER, VALARIE Consulting Unavailable CAROLA ., JAMAR Attending Unavailable ROSALINELOLAURIE, DR ROBERT Santiago Primary Care Unavailable CAROLA ., JAMAR Admitting Unavailable CAROLA ., JAMAR Consulting Unavailable MISC, DR MALIN Attending Unavailable MISC, DR MALIN Admitting Unavailable FURLOLAURIE, DR ROBERT Santiago Primary Care Unavailable CAROLA ., JAMAR Admitting Unavailable FURLOLAURIE, DR ROBERT Santiago Primary Care Unavailable CAROLA ., JAMAR Consulting Unavailable CAROLA ., JAMAR Attending Unavailable PAY ., DR CABEZAS Attending Unavailable FURLONG, DR ROBERT Santiago Primary Care Unavailable KIERSTEN ., SHARYN LEES Consulting Unavailabl e PAY ., DR CABEZAS Admitting Unavailable NEFCYNICOLE Consulting Unavailable JAJA, ELIUD Attending Unavailable FURLONG, DR ROBERT Santiago Primary Care Unavailable JAJA, ELIUD Admitting Unavailable MISC, DR MALIN Admitting Unavailable MISC, DR MALIN Attending Unavailable FURCASEY, DR ROBERT Santiago Primary Care Unavailable MISC, DR MALIN Admitting Unavailable FURLONG, DR ROBERT Santiago Primary Care Unavailable MISC, DR MALIN Attending Unavailable NICKO ., DR MACK Consulting Unavailable NICKO ., DR MACK Attending Unavailable NICKO ., DR MACK Admitting Unavailable FURLONG, DR ROBERT Santiago Primary Care Unavailable ZIEBDR DELORES BARRIENTOS Consulting Unavailable JAJA, ELIUD Admitting Unavailable JAJA, ELIUD Attending Unavailable FURLONG, DR ROBERT Santiago Primary Care Unavailable WEST, DR MAMIE Quintana Consulting Unavailable JAJA, ELIUD Consulting Unavailable MISC, DR MALIN Attending Unavailable MISC, DR MALIN Admitting Unavailable FURLONG, DR ROBERT Santiago Primary Care Unavailable FURLONG, DR ROBERT Santiago Consulting Unavailable WEST, DR MAMIE Quintana Consulting Unavailable MISC, DR MALIN Consulting Unavailable NICKO ., DR MACK Consulting Unavailable NICKO ., DR MACK Attending Unavailable FURLONG, DR ROBERT Santiago Primary Care Unavailable NICKO ., DR MACK Admitting Unavailable ZIEBER, DR DELORES Moreira Consulting Unavailable FURLONG, DR ROBERT Santiago Primary Care Unavailable REINECK, DR ABDELRAHMAN Santiago Consulting Unavailabl e REINMOHAMUD, DR ABDELRAHMAN Santiago Attending Unavailabl e REINMOHAMUD, DR ABDELRAHMAN Santiago Admitting Unavailabl e PAULA, SUJIT Consulting Unavailable FURLONG, DR ROBERT Santiago Primary Care Unavailable REINECK, DR ABDELRAHMAN Santiago Consulting Unavailabl e REINECK, DR ABDELRAHMAN Santiago Attending Unavailabl e REINECK, DR ABDELRAHMAN Santiago Admitting Unavailabl e RASTEKAUSHIK, LILIANA Consulting Unavailable FURLONG, DR ROBERT Santiago Primary Care Unavailable GRECHNY ., SHARYN LEES Consulting UnavailTUTU Mclean Attending Unavailable TUTU HANSON Admitting Unavailable DO Robert Giron Primary Care Provider [phone] WILMA Herrera Attending Provider Valarie Herrera Attending Unavailable Valarie Herrera Admitting Unavailable Robert Giron Primary Care Unavailable NURIA PEACOCK Referring Unavailable DRAGAN SEN Primary Care Unavailable Furlong Robert BYRNES Primary Care Provider ANDRIA CARTER Attending Unavailable ROBERT GIRON Referring Unavailable NURIA PEACOCK Attending Unavailable MARTIN ARANGO Attending Unavailable ROSHAN HOLLOWAY Attending Unavailable ROBERT GIRON Referring Unavailable ИВАН HARMAN Attending Unavailable ROBERT GIRON Referring Unavailable RITCHIE KIRBY Attending Unavailab le ИВАН HARMAN Attending Unavailable ROBERT GIRON Referring Unavailable ИВАН HARMAN Attending Unavailable ROBERT GIRON Referring Unavailable MARTIN ARANGO Attending Unavailable FRENCH LEVINE Attending Unavailable ROBERT GIRON Referring Unavailable FURLONG, ROBERT G Referring Unavailable FURLONG, ROBERT G Primary Care Unavailable Martin Arango Referring Unavailable Martin Arango Attending Unavailable Martin Arango Admitting Unavailable YUDY, SHERI Kaminski Attending Unavailable YUDY, SHERI Kaminski Attending Unavailable Elliott SOLIS Attending Unavailable Elliott SOLIS Admitting Unavailable NONE, XXXX Referring Unavailable SALAM, Poole Referring Unavailable SALAM, Poole Attending Unavailable SALAM, Poole Admitting Unavailable STANG, Cady L Referring Unavailable STANG, Cady L Attending Unavailable STANG, Cady L Admitting Unavailable Nicci, Inessa A Attending Unavailable Nicci, Inessa A Attending Unavailable YUDY, SHERI E Attending Unavailable Nicci, Inessa A Attending Unavailable Nicci, Inessa A Attending Unavailable Nicci, Inessa A Attending Unavailable Nicci, Inessa A Admitting Unavailable Nicci, Inessa A Referring Unavailable Nicci, Inessa A Attending Unavailable Nicci, Inessa A Admitting Unavailable Santos Landry Attending Unavailable Santos Landry Attending Unavailable Martin Arango Attending Unavailable Martin Arango Admitting Unavailable Martin Arango Referring Unavailable STANG, Cady L Attending Unavailable STANG, Cady L Admitting Unavailable Martin Arango Referring Unavailable Elliott SOLIS Attending Unavailable Elliott SOLIS Admitting Unavailable NONE, XXXX Referring Unavailable STANG, Cady L Attending Unavailable NONE, XXXX Referring Unavailable STANG, Cady L Admitting Unavailable STANG, Cady L Attending Unavailable NONE, XXXX Referring Unavailable Elliott SLOIS Attending Unavailable Elliott SOLIS Admitting Unavailable NONE, XXXX Referring Unavailable Allergies Allergy Classification Reported Allergen(s) Allergy Type Date of Onset Reaction(s) Facility (20 sources) Acetaminophen / HYDROcodone; 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: [acetaminophen-hydr ocodone] Drug Allergy Unknown (qualifier value), [facility] (20 sources) Adhesive Tape; 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: [Tape] Drug allergy Eruption of skin (disorder), [facility] (20 sources) Amitriptyline; 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: [amitriptyline] Drug Allergy 03-13-20 17 Vomiting (disorder), Abnormal Behavior [facility] (20 sources) Amoxicillin; 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: [amoxicillin] Drug Allergy 03-13-20 17 Vomiting [facility] (20 sources) Amoxicillin / Clavulanate; 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: [amoxicillin-clavul anate] Drug Allergy 03-13-20 17 Vomiting (disorder), GI Disturbance [facility] (20 sources) atomoxetine; 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: [atomoxetine] Drug Allergy 07-30-20 19 Palpitations, Other (See Comments) [facility] Comment on above: (atomoxetine) (20 sources) buPROPion; 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: [bupropion] Drug Allergy 05-01-20 11 Palpitations [facility] (20 sources) Codeine; 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: [codeine] Drug Allergy 03-13-20 17 Eruption of skin (disorder), [facility] (20 sources) Dexamethasone; 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: [dexamethasone] Drug Allergy 07-30-20 19 Menopausal flushing (finding) [facility] Comment on above: (dexamethasone) (20 sources) Doxycycline; 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: [doxycycline] Drug Allergy 03-13-20 17 GI Disturbance, Palpitations [facility] (20 sources) DULoxetine; 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: [duloxetine] Drug Allergy 07-30-20 19 Unknown (qualifier value), [facility] (20 sources) fluticasone; 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: [fluticasone] Drug Allergy Unknown (qualifier value) [facility] (20 sources) fluticasone / salmeterol; 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: [fluticasone-salmet su] Drug Allergy 03-13-20 17 Eruption of skin (disorder), rash, Itching, Palpitations [facility] (20 sources) gabapentin; 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: [gabapentin] Drug Allergy 07-30-20 19 Unknown (qualifier value) [facility] (20 sources) Ibuprofen; 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: [ibuprofen] Drug Allergy 03-13-20 17 Eruption of skin (disorder), rash, GI Disturbance [facility] (20 sources) Ketorolac; 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: [ketorolac] Drug Allergy 03-13-20 17 Unknown (qualifier value) [facility] (20 sources) meloxicam; 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: [meloxicam] Drug Allergy 07-30-20 19 Unknown (qualifier value) [facility] (20 sources) Methadone; 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: [methadone] Drug Allergy 03-13-20 17 Vomiting (disorder), GI Disturbance [facility] (20 sources) milnacipran; 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: [milnacipran] Drug Allergy 05-25-20 22 Unknown (qualifier value), Other (See Comments) [facility] (20 sources) moxifloxacin; 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: [moxifloxacin] Drug Allergy 11-02-19 12 Eruption of skin (disorder), rash [facility] (20 sources) NITROFURANTOIN, MACROCRYSTALS / Nitrofurantoin, Monohydrate; 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: [nitrofurantoin] Drug Allergy 05-25-20 22 Other (See Comments) [facility] (20 sources) OXcarbazepine; 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: [oxcarbazepine] Drug Allergy 03-13-20 17 Unknown (qualifier value), GI Disturbance, Palpitations [facility] (20 sources) PARoxetine; 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: [paroxetine] Drug Allergy 02-08-20 23 Unknown (qualifier value), Hives [facility] (20 sources) Penicillins; 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: [penicillins] Drug allergy 02-25-20 13 Unknown (qualifier value), GI Disturbance, Hives, Other (See Comments), Vomiting [facility] (20 sources) pregabalin; 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: [pregabalin] Drug Allergy 03-13-20 17 Unknown (qualifier value), Other (See Comments), Palpitations [facility] (20 sources) rOPINIRole; 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: [ropinirole] Drug Allergy 07-30-20 19 Altered mental status [facility] (20 sources) Shellfish; 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: [shellfish] Drug allergy Eruption of skin (disorder), rash [facility] (20 sources) Sulfamethoxazole / Trimethoprim; 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: [sulfamethoxazole-t rimethoprim] Drug Allergy 07-30-20 19 Vomiting (disorder) [facility] (20 sources) topiramate; 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: [topiramate] Drug Allergy 03-13-20 17 Vomiting (disorder), GI Disturbance, Other (See Comments) [facility] (20 sources) Valproate; 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: [divalproex sodium] Drug Allergy Alopecia (disorder) [facility] (20 sources) Verapamil; 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: [verapamil] Drug Allergy 03-13-20 17 Vomiting (disorder), GI Disturbance [facility] (20 sources) ziprasidone; 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: [ziprasidone] Drug Allergy 08-06-20 14 Unknown (qualifier value), Palpitations, Other (See Comments) [facility] (5 sources) Adhesive Tape; 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: [Adhesive tape] Allergy to substance 02-25-20 13 contact dermatitis [facility] (8 sources) Fish Containing Products; 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: [Fish Containing Products] Allergy to substance 11-02-19 12 Rash [facility] (5 sources) Codeine Drug Allergy rash [facility] Other (5 sources) torodol Propensity to adverse reactions severe abdominal pain [facility] Other (20 sources) Methocarbamol; 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: [methocarbamol] Drug Allergy 11-13-19 23 Unknown (qualifier value), Other (See Comments) [facility] (2 sources) Acetaminophen / HYDROcodone Drug Allergy [facility] (2 sources) Amitriptyline Drug Allergy 02-25-20 13 [facility] (2 sources) Amoxicillin / Clavulanate Drug Allergy 02-25-20 13 [facility] (3 sources) atomoxetine; 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: [Strattera] Drug Allergy 02-25-20 13 [facility] (1 source) atorvastatin Drug Allergy [facility] (2 sources) buPROPion Drug Allergy 02-25-20 13 [facility] (2 sources) carBAMazepine Drug Allergy [facility] (1 source) Clindamycin Drug Allergy 11-04-19 16 [facility] (2 sources) Codeine Drug Allergy 02-25-20 13 [facility] (3 sources) Dexamethasone; 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: [Decadron] Drug Allergy 02-25-20 13 [facility] (2 sources) Diclofenac Drug Allergy 04-28-20 15 [facility] (2 sources) Doxycycline Drug Allergy 02-25-20 13 [facility] (2 sources) DULoxetine Drug Allergy 12-10-19 14 [facility] (7 sources) Fish derivative; 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: [FISH DERIVED] Drug allergy (disorder) 02-25-20 13 Hives [facility] (2 sources) Fluorometholone Drug Allergy [facility] (2 sources) fluticasone / salmeterol Drug Allergy 02-25-20 13 [facility] (2 sources) gabapentin Drug Allergy 07-26-20 16 [facility] (2 sources) hydrOXYzine Drug Allergy 05-05-20 17 [facility] (2 sources) Ibuprofen Drug Allergy 02-25-20 13 [facility] (2 sources) Ibuprofen Drug Allergy 07-20-20 14 [facility] (1 source) Ketorolac Drug Allergy [facility] (2 sources) Ketorolac Drug Allergy 03-09-20 15 [facility] (2 sources) meloxicam Drug Allergy [facility] (2 sources) Methadone Drug Allergy 02-25-20 13 [facility] (2 sources) Methocarbamol Drug Allergy 04-28-20 15 [facility] (2 sources) milnacipran Drug Allergy [facility] (2 sources) moxifloxacin Drug Allergy 02-25-20 13 [facility] (2 sources) Nitrofurantoin Drug Allergy [facility] (2 sources) OXcarbazepine Drug Allergy 02-25-20 13 [facility] (2 sources) PARoxetine Drug Allergy [facility] (3 sources) pregabalin; 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: [Lyrica] Drug Allergy 02-25-20 13 [facility] (2 sources) rOPINIRole Drug Allergy 07-20-20 14 [facility] (1 source) Sulfonamides (Antibiotic) Drug allergy (disorder) [facility] (2 sources) topiramate Drug Allergy 02-25-20 13 [facility] (2 sources) Valproate Drug Allergy 07-20-20 14 [facility] (1 source) Verapamil Drug Allergy 07-20-20 14 [facility] (3 sources) ziprasidone; 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: [Geodon] Drug Allergy 02-25-20 13 [facility] (6 sources) Adhesive agent; 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: [ADHESIVE] Propensity to adverse reactions to drug 11-02-19 12 [facility] Work Phone: (5 sources) atomoxetine; 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: [ATOMOXETINE HCL] Drug Allergy 03-13-20 17 GI Disturbance, Palpitations [facility] (5 sources) buPROPion; 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: [BUPROPION HCL] Drug Allergy 03-13-20 GI Disturbance, Palpitations [facility] (5 sources) DULoxetine; 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: [DULOXETINE HCL] Drug Allergy 02-26-[address] [facility] (5 sources) Eicosapentaenoate; 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: [EICOSAPENTAENOIC ACID] Drug Allergy 03-13-[address] [facility] (5 sources) Ketorolac; 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: [KETOROLAC TROMETHAMINE] Drug Allergy 03-13-20 17 Other (See Comments) [facility] (5 sources) moxifloxacin; 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: [MOXIFLOXACIN-SOD.C HLORIDE(ISO)] Drug Allergy 03-13-[address] [facility] (5 sources) PARoxetine; 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: [PAROXETINE HCL] Drug Allergy 07-30-[address] [facility] (6 sources) Shellfish; 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: [SHELLFISH CONTAINING PRODUCTS] Propensity to adverse reactions to drug 02-26-20 [facility] (5 sources) Shellfish; 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: [SHELLFISH DERIVED] Propensity to adverse reactions to drug 07-30-[address] [facility] (5 sources) Sulfamethoxazole; 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: [SULFAMETHOXAZOLE] Drug Allergy 03-22-20 Other (See Comments) [facility] (5 sources) Valproate; 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: [DIVALPROEX] Drug Allergy 07-30-[address] [facility] (5 sources) Valproate; 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: [VALPROIC ACID] Drug Allergy 07-30-[address] [facility] (5 sources) Verapamil; 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: [VERAPAMIL HCL] Drug Allergy 07-05-[address] [facility] (5 sources) ziprasidone; 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: [ZIPRASIDONE HCL] Drug Allergy 03-13-[address] [facility] (5 sources) Adhesive Tape-Silicones; 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: [ADHESIVE TAPE-SILICONES] Propensity to adverse reactions to drug 08-06-20 14 Other (See Comments), Rash [facility] (1 source) Dexamethasone; 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: [DEXAMETHASONE (PF)] Drug Allergy 07-30-20 [facility] (1 source) Sulfamethoxazole / Trimethoprim; 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: [SULFAMETHOXAZOLE-T RIMETHOPRIM] Drug Allergy 07-30-20 [facility] (1 source) NITROFURANTOIN MONOHYD/M-CRYST; 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: [NITROFURANTOIN MONOHYD/M-CRYST] Propensity to adverse reactions to drug (disorder) 05-25-20 [facility] (1 source) AMOXICILLIN-POT CLAVULANATE; 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: [AMOXICILLIN-POT CLAVULANATE] Propensity to adverse reactions to drug (disorder) 03-13-20 [facility] (1 source) FLUTICASONE PROPION-SALMETEROL; 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: [FLUTICASONE PROPION-SALMETEROL] Propensity to adverse reactions to drug (disorder) 03-13-20 [facility] (1 source) Fish - dietary; 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: [Fish] Food allergy (disorder) [facility] Medications Current Medications Medication Drug Class(es) Dates Sig (Normalized) Sig (Original) acetaminophen 325 mg / oxyCODONE hydrochloride 5 mg oral tablet (11 sources) Opioid Agonist Start: 11-07-2021 Percocet 325 mg-5 mg Tab 1 tab(s), Oral, Refill(s) 0, Pain Start Date: 11/07/21 Status: Ordered Ajovy Autoinjector 225 mg/1.5 mL subcutaneous solution (3 sources) Start: 10-25-2021 inject 225 mg by subcutaneous injection every month Ajovy Autoinjector 225 mg/1.5 mL subcutaneous solution 225 mg, SubCutaneous, qMonth, Refills(s) 0, Blood glucose Start Date: 10/25/21 Status: Ordered [id number] 200 actuat albuterol 0.09 mg/actuat metered dose inhaler (14 sources) beta2-Adrenergic Agonist Start: 06-14-2021 take 1 puff(s) by inhalation every four to six hours Albuterol Sulfate Active 2 PUFF INHALATION EVERY 4-6 HOURS June 14, 2021 12:00am take 2 puff(s) by in halation every six hours as needed for wheezing albuterol (PROVENTIL HFA;VENTOLIN HFA) 9 0 mcg/actuation inhaler Inhale 2 puffs every 6 (six) hours as needed for wheezing. 0 Active Albuterol Sulfat e (2.5 MG/3ML) 0.083% 3 mL as needed Inhalation every 6 hrs for 30 days Active take 1 puff(s) by in halation every four hours as needed Proventil HFA 108 (90 Base) MCG/ACT 1 pu ff as needed Inhalation every 4 hrs Active Albuterol Sulfat e (2.5 MG/3ML) 0.083% 3 mL as needed Inhalation every 6 hrs for 30 days Active albuterol 0.833 mg/ml / ipratropium bromide 0.167 mg/ml inhalation solution (4 sources) Anticholinergic, beta2-Adrenergic Agonist ipratropium-albutero L (DUONEB) 0.5 mg-3 mg(2.5 mg base)/3 mL nebulizer alendronic acid 70 mg oral tablet (4 sources) Bisphosphonate Start: 2022 take 1 tablet by mouth every week alendronate (FOSAMAX) 70 mg tablet TAKE ONE TABLET BY MOUTH ONCE WEEKLY 30 MINUTES BEFORE THE FIRST FOOD, BEVERAGE, OR MEDICINE OF THE DAY WITH PLAIN WATER 0 10/08/2022 Active ALPRAZolam 1 mg oral tablet (20 sources) Benzodiazepine Start: 2022 End: 2023 take 1 tablet by mouth three times daily as needed for anxiety ALPRAZolam (XANAX) 1 mg tablet Indications: Anxiety state TAKE ONE TABLET BY MOUTH THREE TIMES A DAY NEEDED FOR ANXIETY 90 tablet 1 09/02/2023 Active Start: 07-10-2021 take 0.25 mg by mout h three times daily as needed for anxiety Xanax 0.25 mg, Oral, TID, PRN as needed for anxiety, Refills(s) 0 Start Date: 07/10/21 Status: Ordered Start: 06-14-2021 take 0.5 mg by mouth three times daily Xanax 0.5 mg, Oral, TID, Anxiety Start Date: 11/16/22 Status: Ordered ARIPiprazole 15 mg oral tablet (20 sources) Atypical Antipsychotic Start: 11-16-2022 take 15 mg by mouth once daily Abilify 15 mg, Oral, Daily Start Date: 11/16/22 Status: Ordered Start: 04-28-2018 take 30 mg by mouth once daily Aripiprazole Active 30 MG PO Daily June 14, 2021 12:00am Start: 04-28-2018 Abilify 30 mg oral tablet See Instructions, Reports taking 15mg daily now as prescribed by her PCP., Refills(s) 0, Other (see comment) Start Date: 04/28/18 Status: Ordered aspirin 81 mg delayed release oral tablet (20 sources) Platelet Aggregation Inhibitor, Nonsteroidal Anti-inflammatory Drug Start: 07-01-2023 take 1 tablet by mouth in the morning aspirin 81 mg Take 1 tablet (81 mg total) by mouth in the morning. 0 07/01/2023 Active Start: 06-14-2021 take 81 mg by mouth once daily Aspirin Active 81 MG PO Daily June 14, 2021 12:00am atorvastatin 80 mg oral tablet (20 sources) HMG-CoA Reductase Inhibitor Start: 12-27-2022 take 1 tablet by mouth once daily atorvastatin (LIPITOR) 80 mg tablet TAKE ONE TABLET BY MOUTH ONCE DAILY 30 tablet 11 12/27/2022 Active Start: 04-28-2018 take 2 tablets by mo [facility] at bedtime Lipitor 40 mg Tab 80 mg = 2 tab(s), Oral, Bedtime, Refills(s) 0, High cholesterol Start Date: 04/28/18 Status: Ordered Start: 04-28-2018 take 40 mg by mouth once daily at bedtime Atorvastatin Active 40 MG PO Daily at bedtime June 14, 2021 12:00am azithromycin 250 mg Tab 5-day Dose Pack (Z-Flyod) (1 source) Start: 10-20-2022 End: 10-25-2022 azithromycin 250 mg Tab 5-day Dose Pack (Z-Floyd) = 1 packet(s), Oral, As Directed, as directed on package labeling, X 5 day(s), # 6 tab(s), Refills(s) 0, Pharmacy: [id number], 163, cm, 03/04/23 10:48:00 EST, Height/Length Dosing, 78.9, kg, 10/20/22 10:48:00 EST, Weight Dosing Start Date: 10/20/22 Stop Date: 10/25/22 Status: Ordered benzonatate 100 mg oral capsule (4 sources) Non-narcotic Antitussive Start: 07-10-2023 take 1 capsule by mouth three times daily as needed for cough benzonatate (TESSALON PERLES) 100 mg capsule Indications: Acute cough Take 1 capsule (100 mg total) by mouth 3 (three) times a day as needed for cough. 20 capsule 0 07/10/2023 Active benztropine mesylate 0.5 mg oral tablet (20 sources) Anticholinergic, Antihistamine Start: 09-04-2021 take 1 tablet by mouth once daily benztropine 0.5 mg oral tablet 0.5 mg = 1 tab(s), Oral, Daily, Refills(s) 0, Other (see comment) Start Date: 09/04/21 Status: Ordered Start: 06-14-2021 take 1 tablet by colin th twice daily benztropine (COGENTIN) 0.5 mg tablet TAKE ONE TABLET BY MOUTH TWICE A DAY 60 tablet 11 12/27/2022 Active bifidobacterium infantis 4 mg oral capsule (4 sources) Start: 10-29-2022 End: 11-26-2022 take 1 capsule by mouth once daily Align 4 mg oral capsule 4 mg = 1 cap(s), Oral, Daily, X 28 day(s), # 28 cap(s), Refills(s) 0, Pharmacy: [id number], 163, cm, 10/29/22 14:56:00 EDT, Height/Length Dosing, 77.3, kg, 10/29/22 14:56:00 EDT, Weight Dosing Start Date: 10/29/22 Stop Date: 11/26/22 Status: Ordered blood-glucose meter,continuous (DEXCOM G6 WAFER MACHINE OPERATOR) misc (4 sources) Start: 10-24-2022 blood-glucose meter,continuous (DEXCOM G6 WAFER MACHINE OPERATOR) misc Indications: Type 2 diabetes mellitus without complication, without long-term current use of insulin ([facility]) 1 unit yearly 1 each 0 10/24/2022 Active blood-glucose sensor (DEXCOM G6 SENSOR) device (4 sources) Start: 03-31-2023 blood-glucose sensor (DEXCOM G6 SENSOR) device Indications: Type 2 diabetes mellitus without complication, without long-term current use of insulin ([facility]) 1 Unit by miscellaneous route every 10 days. 3 each 5 03/31/2023 Active blood-glucose transmitter (DEXCOM G6 TRANSMITTER) device (4 sources) Start: 06-24-2023 blood-glucose transmitter (DEXCOM G6 TRANSMITTER) device Indications: Type 2 diabetes mellitus without complication, without long-term current use of insulin ([facility]) 1 UNIT BY MISCELLANEOUS ROUTE EVERY 3 (THREE) MONTHS. 1 each 1 06/24/2023 Active Budesonide / formoterol (4 sources) Corticosteroid , beta2-Adrenerg ic Agonist Start: 09-04-2021 Symbicort Inhalation, BID, Refill(s) 0, COPD Start Date: 09/04/21 Status: Ordered Start: 06-14-2021 take 1 puff(s) by in halation once daily at bedtime Budesonide-Formoterol (Symbicort) 160-4.5 mcg/actuation HFA aerosol inhaler Active 2 PUFF INHALATION Daily at bedtime June 14, 2021 12:00am Calcium (20 sources) Phosphate Binder, Calcium Start: 07-20-2016 Calcium 600+D 600 / 400 mg, Oral, Daily, Refill(s) 0, Prophylaxis Start Date: 07/20/16 Status: Ordered calcium carbonate 1500 mg oral tablet (4 sources) Start: 11-06-2022 take 1 tablet by mouth twice daily calcium carbonate (OS-LARRY) 600 mg (1,500 mg) tablet TAKE ONE TABLET BY MOUTH TWICE A DAY FOR 30 DAYS 0 11/06/2022 Active carvedilol 25 mg oral tablet (20 sources) alpha-Adrenergic Laz, beta-Adrenergic Laz Start: 08-06-2022 End: 08-01-2023 take 1 tablet by mouth twice daily carvedilol 25 mg Tab 25 mg = 1 tab(s), Oral, BID, # 180 tab(s), Refills(s) 3, Pharmacy: [id number], 163, cm, 07/25/23 10:41:00 EST, Height/Length Dosing, 80.8, kg, 07/25/23 10:47:00 EST, Weight Dosing Start Date: 07/30/23 Status: Ordered Start: 03-06-2022 take 1 tablet by colin th twice daily carvedilol 25 mg Tab 25 mg = 1 tab(s), Oral, BID, # 180 tab(s), Refills(s) 1, Pharmacy: [facility], 162, cm, 03/06/22 10:28:00 EDT, Height/Length Dosing, 78, kg, 03/06/22 10:28:00 EDT, Weight Dosing Start Date: 03/06/22 Status: Ordered Start: 06-14-2021 End: 10-27-2022 take 12.5 mg by mouth twice daily Carvedilol Active 12.5 MG PO Twice daily June 14, 2021 12:00am cetirizine hydrochloride 10 mg oral tablet (20 sources) Histamine-1 Receptor Antagonist Start: 02-24-2015 take 10 mg by mouth once daily Zyrtec 10 mg, Oral, Daily, Refills(s) 0, Allergy symptoms Start Date: 02/24/15 Status: Ordered cholestyramine resin 4000 mg powder for oral suspension (4 sources) Bile Acid Sequestrant Start: 06-06-2023 cholestyramine (QUESTRAN) 4 gram powder Indications: Mixed hyperlipidemia Take 9 g of bulk powder (4 g total) by mouth in the morning and 9 g of bulk powder (4 g total) in the evening. Take with meals. 378 g 1 06/06/2023 Active diazePAM 2 mg oral tablet (3 sources) Benzodiazepine Start: 07-08-2023 End: 09-02-2023 take 1 tablet by mouth every eight hours as needed for anxiety diazePAM (VALIUM) 2 mg tablet Indications: Claustrophobia Take 1 tablet (2 mg total) by mouth every 8 (eight) hours as needed for anxiety. 1 tablet 0 07/08/2023 09/02/2023 Discontinued (Therapy completed) dicyclomine hydrochloride 20 mg oral tablet (7 sources) Anticholinergic Start: 06-14-2021 take 20 mg by mouth four times daily Dicyclomine Active 20 MG PO Four times daily June 14, 2021 12:00am take 1 tablet by colin th every eight hours Dicyclomine HCl 20 MG 1 tablet Orally Th ree times a day Active 24 hr dilTIAZem hydrochloride 120 mg extended release oral capsule (7 sources) Calcium Channel Laz Start: 07-05-2023 diltiazem CD 120 mg/ 24 hours Cap-ER 120 mg = 1 cap(s), Oral, Daily, # 30 cap(s), Refills(s) 5, Pharmacy: [facility], 163, cm, 07/05/23 15:45:00 EST, Height/Length Dosing, 81.9, kg, 07/05/23 15:49:00 EST, Weight Dosing Start Date: 07/05/23 Status: Ordered Start: 07-05-2023 take 1 capsule by [facility] every twenty-four hours dilTIAZem CD (CARDIZEM CD) 120 mg 24 hr capsule Take 1 capsule (120 mg total) by mouth. 0 07/05/2023 Active diphenhydrAMINE hydrochloride 25 mg oral capsule (4 sources) Histamine-1 Receptor Antagonist Start: 01-02-2023 take 1 capsule by mouth every six hours as needed diphenhydrAMINE (BenadryL) 25 mg capsule Indications: Rash in adult Take 1 capsule (25 mg total) by mouth every 6 (six) hours as needed for itching or allergies. MAY CAUSE DROWSINESS. HOLD hydroxyzine while taking this medication. 15 capsule 0 01/02/2023 Active ergocalciferol 1.25 mg oral capsule (20 sources) Provitamin D2 Compound Start: 06-28-2023 take 1 capsule by mouth every week ergocalciferol (VITAMIN D2) 1,250 mcg (50,000 unit) capsule TAKE ONE CAPSULE BY MOUTH ONCE WEEKLY 4 capsule 11 06/28/2023 Active Start: 10-25-2021 take 1 capsule by [facility] every week ergocalciferol 50,000 intl units Cap 50,000 International_Unit = 1 cap(s), Oral, qWeek, Refills(s) 0, Prophylaxis Start Date: 10/25/21 Status: Ordered Start: 10-25-2021 take 1 capsule by [facility] every week ergocalciferol 50,000 intl units Cap 50,000 International_Unit = 1 cap(s), Oral, qWeek, Refills(s) 0, Prophylaxis Start Date: 10/25/21 Status: Ordered Start: 06-14-2021 take 11723 ug by colin th every week Ergocalciferol (Vitamin D2) Active 62931 MCG PO every week June 14, 2021 12:00am every saturday Start: 05-07-2018 take 1 capsule by mouth once V itamin D 50,000 intl units (1.25 mg) oral capsule 50,000 International_Unit = 1 cap(s), Oral, Saturday, Refills(s) 0, Prophylaxis Start Date: 05/07/18 Status: Ordered famotidine 20 mg oral tablet (6 sources) Histamine-2 Receptor Antagonist Start: 10-29-2022 End: 01-27-2023 take 1 tablet by mouth once daily at bedtime Pepcid 20 mg Tab 20 mg = 1 tab(s), Oral, Once a day (at bedtime), X 90 day(s), # 90 tab(s), Refills(s) 0, Pharmacy: [id number], 163, cm, 10/29/22 14:56:00 EDT, Height/Length Dosing, 77.3, kg, 10/29/22 14:56:00 EDT, Weight Dosing Start Date: 10/29/22 Stop Date: 01/27/23 Status: Ordered Ajovy (20 sources) Start: 09-14-2022 Ajovy Refills( s) 0 Start Date: 09/14/22 Status: Ordered Start: 10-25-2021 fremanezumab-v frm (AJOVY AUTOINJECTOR) 225 mg/1.5 mL 1.5 mL (225 mg total) every 30 (thirty) days. 0 10/25/2021 Active Start: 10-25-2021 inject 225 mg by sub cutaneous injection every month Ajovy Autoinjector 225 mg/1.5 mL subcutaneous solution 225 mg, SubCutaneous, qMonth, Refills(s) 0, Migraine headache Start Date: 10/25/21 Status: Ordered Ajovy 225 MG/1.5 ML 1.5 mL Subcutaneous Active furosemide 20 mg oral tablet (20 sources) Loop Diuretic Start: 06-14-2021 take 20 mg by mouth once daily Lasix 20 mg, Oral, Daily, Refills(s) 0, diuretic/water pill Start Date: 06/16/21 Status: Ordered glimepiride 4 mg oral tablet (20 sources) Sulfonylurea Start: 09-04-2021 take 1 tablet by mouth once daily glimepiride 4 mg Tab 4 mg = 1 tab(s), Oral, Daily, Refills(s) 0, Blood glucose Start Date: 09/04/21 Status: Ordered Start: 06-14-2021 take 4 mg by mouth twice daily Glimepiride Active 4 MG PO Twice daily June 14, 2021 12:00am hydrOXYzine hydrochloride 50 mg oral tablet (20 sources) Antihistamine Start: 06-14-2021 take 50 mg by mouth four times daily Hydroxyzine Hcl Active 50 MG PO Four times daily June 14, 2021 12:00am Start: 10-12-2019 take 50 mg by mouth four times daily hydrOXYzine 50 mg, Oral, QID, Refills(s) 0, Anxiety Start Date: 10/12/19 Status: Ordered inject 1 mL by intra muscular injection every six hours as needed hydrOXYzine HCl 50 MG/ML 1 ml as needed Intramuscular every 6 hrs Active inject 1 mL by intra muscular injection every six hours as needed hydrOXYzine HCl 50 MG/ML 1 ml as needed Intramuscular every 6 hrs Active Injovy (2 sources) Start: 12-07-2021 Injovy Active 1 syringe IM every month December 07, 2021 12:00am ammonium lactate 120 mg/ml topical lotion (4 sources) Start: 10-22-2022 ammonium lacta te (LAC-HYDRIN) 12 % lotion Apply topically 2 (two) times a day. 400 g 0 10/22/2022 Active lidocaine 0.05 mg/mg medicated patch (5 sources) Antiarrhythmic, Amide Local Anesthetic Start: 10-12-2022 Lidoderm 5% Patch 1 patch(es), Topical, Daily, 7 EA, Refill(s) 0, apply 12 hours on and 12 hours off daily Start Date: 10/12/22 Status: Ordered loperamide hydrochloride 2 mg oral capsule (20 sources) Opioid Agonist Start: 08-07-2023 take 1 capsule by mouth every twenty-four hours loperamide (IMODIUM) 2 mg capsule TAKE 2 CAPSULES BY MOUTH AFTER 1ST LOOSE STOOL AND 1 CAPSULE AFTER EACH NEXT BOWEL MOVEMENT; DO NOT EXCEED 16MG (8 CAPSULES) IN 24 HOURS 20 capsule 1 08/07/2023 Active Start: 10-29-2022 End: 11-28-2022 Imodium 2 mg oral capsule 2 mg = 1 cap(s), Oral, q6hr, PRN as needed for loose stool, not to exceed 8 capsules, or 16 mg, in 24 hours, X 30 day(s), # 120 cap(s), Refills(s) 0, Pharmacy: [id number], 163, cm, 10/29/22 14:56:00 EDT, Height/Length Dosing, 77.3, kg,... Start Date: 10/29/22 Stop Date: 11/28/22 Status: Ordered Start: 06-14-2021 take 2 mg by mouth twice daily Loperamide Active 2 MG PO Twice daily June 14, 2021 12:00am Start: 07-12-2020 take 1 tablet by colin th twice daily as needed for diarrhea Imodium A-D 2 mg oral tablet See Instructions, PRN Diarrhea, 2 mg Oral BID and 2mg after each loose stool, # 120 tab(s), Refills(s) 6, Pharmacy: [id number], 162, cm, 03/30/20 10:05:00 EDT, Height/Length Dosing, 74.2, kg, 03/30/20 10:05:00 EDT, Weight Dosing Start Date: 07/12/20 Status: Ordered meclizine hydrochloride 25 mg oral tablet (20 sources) Antiemetic Start: 07-02-2022 take 1 tablet by mouth three times daily as needed for dizziness meclizine (ANTIVERT) 25 mg tablet Take 1 tablet (25 mg total) by mouth 3 (three) times a day as needed for dizziness. 30 tablet 1 07/02/2022 Active Start: 10-22-2018 take 25 mg by mouth four times daily as needed for dizziness meclizine 25 mg, Oral, QID, PRN Dizziness Start Date: 10/22/18 Status: Ordered take 1 tablet by colin th every twenty-four hours Meclizine HCl 25 MG 1 tablet as needed Orally Once a day Active metFORMIN hydrochloride 500 mg oral tablet (10 sources) Biguanide Start: 05-06-2023 take 1 tablet by mouth once daily at breakfast metFORMIN (GLUCOPHAGE) 500 mg tablet Indications: Type 2 diabetes mellitus with diabetic mononeuropathy, without long-term current use of insulin ([facility]) Take 1 tablet (500 mg total) by mouth daily with breakfast. 30 tablet 5 05/06/2023 Active Start: 09-20-2022 take 1 tablet by colin th twice daily metformin 500 mg Tab TAKE ONE TABLET BY MOUTH TWICE A DAY Start Date: 09/20/22 Status: Ordered montelukast 10 mg oral tablet (20 sources) Leukotriene Receptor Antagonist Start: 06-14-2021 take 1 tablet by mouth once daily montelukast 10 mg Tab 10 mg = 1 tab(s), Oral, Daily, Refills(s) 0, Asthma Start Date: 09/04/21 Status: Ordered nabumetone 750 mg oral tablet (6 sources) Nonsteroidal Anti-inflammatory Drug Start: 09-17-2023 nabumetone 750 mg Tab Refills(s) 0 Start Date: 09/17/23 Status: Ordered Start: 03-04-2023 End: 08-23-2023 take 1 tablet by mouth twice daily as needed for pain nabumetone (RELAFEN) 750 mg tablet Indications: Chronic bilateral low back pain with sciatica, sciatica laterality unspecified Take 1 tablet (750 mg total) by mouth 2 (two) times a day as needed for pain. 60 tablet 5 08/23/2023 Active naratriptan 2.5 mg oral tablet (20 sources) Serotonin-1b and Serotonin-1d Receptor Agonist Start: 10-12-2019 naratriptan 2.5 mg Tab 2.5 mg = 1 tab(s), Oral, As Directed, PRN Migraine headache, # 9 tab(s), Refills(s) 0 Start Date: 10/12/19 Status: Ordered nebulizer accessories misc (4 sources) Start: 01-25-2023 nebulizer accessories misc Indications: Chronic obstructive pulmonary disease, unspecified COPD type ([facility]) 1 Tube by inhal. via small vol.nebulizer route every 6 (six) months. 1 each 1 01/25/2023 Active nebulizers misc (4 sources) Start: 01-25-2023 nebulizers misc Indications: Chronic obstructive pulmonary disease, unspecified COPD type ([facility]) 1 Unit by miscellaneous route every 6 (six) months. 1 each 1 01/25/2023 Active nortriptyline 25 mg oral capsule (20 sources) Tricyclic Antidepressant Start: 06-14-2021 take 1 capsule by mouth in the morning, then take 3 capsules by mouth at bedtime nortriptyline 25 mg Cap TAKE ONE CAPSULE BY MOUTH IN THE MORNING AND TAKE THREE CAPSULES AT BEDTIME Start Date: 09/20/22 Status: Ordered Start: 06-14-2021 take 75 mg by mouth once daily at bedtime Nortriptyline Active 75 MG PO Daily at bedtime June 14, 2021 12:00am Nurtec ODT (20 sources) Start: 07-10-2021 take 75 mg by mouth every twenty-four hours as needed for headache Nurtec ODT 75 mg, Oral, q24hr, PRN as needed for migraine headache, Refills(s) 0 Start Date: 07/10/21 Status: Ordered nystatin [id number] unt/ml topical cream (7 sources) Polyene Antifungal Start: 08-18-2023 End: 08-23-2023 take 5 mL by mouth four times daily at bedtime nystatin (MYCOSTATIN) 100,000 unit/mL suspension Indications: Oral thrush TAKE 5ML FOUR TIMES A DAY IN AM, NOON, EVENING, AND AT BEDTIME FOR 7 DAYS 140 mL 1 08/18/2023 08/23/2023 Active Start: 06-27-2023 End: 08-18-2023 apply 15 g topically twice daily nystatin (MYCOSTATIN) cream APPLY TO AFFECTED AREA VIA TOPICAL ROUTE TWICE A DAY 15 g 0 08/18/2023 Active omeprazole 40 mg delayed release oral capsule (20 sources) Proton Pump Inhibitor Start: 06-22-2015 take 1 capsule by mouth once daily before mealtime omeprazole (PriLOSEC) 40 mg capsule TAKE ONE CAPSULE BY MOUTH ONCE DAILY BEFORE MEAL 30 capsule 5 04/01/2023 Active take 1 capsule by mouth once genoveva ly PriLOSEC 40 MG 1 capsule Orally Once a day Active ondansetron 4 mg disintegrating oral tablet (18 sources) Serotonin-3 Receptor Antagonist Start: 09-17-2023 ondansetron 4 mg Dis Tab Refills(s) 0 Start Date: 09/17/23 Status: Ordered Start: 09-09-2023 take 1 tablet by colin every eight hours as needed for nausea and vomiting ondansetron ODT (ZOFRAN ODT) 4 mg disintegrating tablet Dissolve 1 tablet (4 mg total) on tongue every 8 (eight) hours as needed for nausea or vomiting. 10 tablet 1 09/09/2023 Active Start: 06-06-2023 End: 09-08-2023 take 1 tablet by mouth every eight hours as needed for nausea and vomiting ondansetron ODT (ZOFRAN ODT) 4 mg disintegrating tablet Dissolve 1 tablet (4 mg total) on tongue every 8 (eight) hours as needed for nausea or vomiting. 10 tablet 1 06/06/2023 09/08/2023 Discontinued (Reorder) Start: 10-29-2022 End: 09-09-2023 take 1 tablet by mouth every twelve hours as needed for nausea and vomiting ondansetron (ZOFRAN) 4 mg tablet TAKE 1 TABLET BY MOUTH EVERY 12 HOURS FOR 10 DAYS NEEDED FOR NAUSEA AND VOMITING 0 10/29/2022 09/09/2023 Discontinued (Therapy completed) Start: 06-14-2021 take 4 mg by mouth e very six hours Ondansetron Active 4 MG PO Q6H June 14, 2021 12:00am Zofran Active Oxygen - for Home (20 sources) Start: 10-25-2021 Oxygen - for Home 3 L/min, Nasal Cannula, Daily, Refill(s) 0, Oxygen - Continuous or Nocturnal Diagnosis: Portable 02 for physician visits, oxygen conservation Start Date: 10/25/21 Status: Ordered Oxygen 2 liters (5 sources) Oxygen 2 liters 2.5 liters continuous Active pantoprazole 40 mg delayed release oral tablet (8 sources) Proton Pump Inhibitor Start: 09-14-2022 End: 12-13-2022 take 1 tablet by mouth once daily Pantoprazole [address] Tab 40 mg = 1 tab(s), Oral, Daily, X 90 day(s), # 90 tab(s), Refills(s) 0, Pharmacy: [id number], 163, cm, 09/14/22 13:14:00 EST, Height/Length Dosing, 79.6, kg, 09/14/22 13:14:00 EST, Weight Dosing Start Date: 09/14/22 Stop Date: 12/13/22 Status: Ordered pilocarpine hydrochloride 5 mg oral tablet (9 sources) Cholinergic Receptor Agonist Start: 09-20-2022 take 1 tablet by mouth three times daily pilocarpine 5 mg Tab TAKE 1 TABLET BY MOUTH THREE TIMES DAILY., Unable to State Start Date: 09/20/22 Status: Ordered polyethylene glycol 3350 [id number] mg / potassium chloride 1480 mg / sodium bicarbonate 5720 mg / sodium chloride 57383 mg powder for oral solution (11 sources) Osmotic Laxative Start: 09-14-2022 take 2 doses by mouth once daily NuLYTELY Aquino oral powder for reconstitution See Instructions, 2 EA, Refill(s) 0, 240 mL Oral Daily, [facility], 163, cm, 09/14/22 13:14:00 EST, Height/Length Dosing, 79.6, kg, 09/14/22 13:14:00 EST, Weight Dosing Start Date: 09/14/22 Status: Ordered Start: 05-09-2022 NuLYTELY Cherr y oral powder for reconstitution See Instructions, 1 EA, Refill(s) 0, Prior to colonoscopy., [facility], 163, cm, 05/09/22 13:44:00 EDT, Height/Length Dosing, 78.2, kg, 05/09/22 13:44:00 EDT, Weight Dosing Start Date: 05/09/22 Status: Ordered polyethylene glycol 3350 with electrolytes Oral Pwdr for Malathi 4000 mL (NuLytely) (9 sources) Start: 11-07-2021 take 1 dose by mouth once polyethylene glycol 3350 with electrolytes Oral Pwdr for Malathi 4000 mL (NuLytely) See Instructions, 1 EA, Refill(s) 0, PER PHYSICIAN INSTRUCTIONS. PRIOR TO COLONOSCOPY., [facility], 163, cm, 11/07/21 12:16:00 EDT, Height/Length Dosing, 80, kg, 11/07/21 12:16:00 EDT, Weight Dosing Start Date: 11/07/21 Status: Ordered pramipexole dihydrochloride 1.5 mg oral tablet (20 sources) Nonergot Dopamine Agonist Start: 06-14-2021 take 3 mg by mouth once daily at bedtime Pramipexole Active 3 MG PO Daily at bedtime June 14, 2021 12:00am Start: 06-14-2021 take 1.5 mg by mouth twice daily Pramipexole Active 1.5 MG PO Twice daily June 14, 2021 12:00am Start: 09-11-2018 take 1.5 mg by mouth three times daily Mirapex 0.5 mg 1.5 mg, Oral, TID, Refills(s) 0, Other (see comment) Start Date: 09/11/18 Status: Ordered take 1 tablet by colin th once daily Mirapex 1.5 MG 1 tablet Orally Once a day Active predniSONE 10 mg oral tablet (1 source) Start: 09-04-2022 predniSONE 10 MG 4 tabs x 3 days, 2 tabs x 3 days, 1 tab x 3 days, then stop. Orally Once a day for 9 days Aug, Active Prilosec 40 mg Cap-EC (3 sources) Start: 06-22-2015 take 1 capsule by mouth once daily Prilosec 40 mg Cap-EC 40 mg = 1 cap(s), Oral, Daily, # 30 cap(s), Refills(s) 0, Indigestion Start Date: 06/22/15 Status: Ordered promethazine hydrochloride 25 mg oral tablet (19 sources) Phenothiazine Start: 09-05-2022 take 1 tablet by mouth three times daily as needed for nausea and vomiting promethazine 25 mg Tab See Instructions, 1 tab(s) Oral TID as needed for nausea and vomiting, # 90 tab(s), Refills(s) 0, Pharmacy: [facility], 162, cm, 05/15/22 13:20:00 EDT, Height/Length Dosing, 79, kg, 05/15/22 13:20:00 EDT, Weight Dosing Start Date: 09/05/22 Status: Ordered Start: 04-04-2020 take 1 tablet by colin th three times daily as needed for nausea promethazine 25 mg Tab 25 mg, Oral, TID, PRN as needed for nausea/vomiting, # 90 tab(s), Refills(s) 2, Pharmacy: [facility], 162, cm, 03/30/20 10:05:00 EDT, Height/Length Dosing, 74.2, kg, 03/30/20 10:05:00 EDT, Weight Dosing Start Date: 04/04/20 Status: Ordered rifAXIMin 550 mg oral tablet (7 sources) Rifamycin Antibacterial Start: 06-14-2021 take 1 tablet by mouth three times daily Rifaximin (Xifaxan) 550 mg tablet Active 550 MG PO Three times daily June 14, 2021 12:00am take 1 tablet by mouth every twe lve hours Xifaxan 550 MG 1 tablet Orally Twice a day Active rimegepant 75 mg disintegrating oral tablet (11 sources) Start: 06-14-2021 take 1 tablet by mouth once daily Rimegepant (Nurtec Odt) 75 mg tablet,disintegrating Active 75 MG PO Daily June 14, 2021 12:00am solifenacin succinate 10 mg oral tablet (20 sources) Cholinergic Muscarinic Antagonist Start: 09-17-2023 take 1 tablet by mouth once daily Vesicare 10 mg Tab 10 mg = 1 tab(s), Oral, Daily, # 90 tab(s), Refills(s) 3, Pharmacy: [facility], 163, cm, 09/17/23 8:25:00 EST, Height/Length Dosing, 81, kg, 09/17/23 8:25:00 EST, Weight Dosing Start Date: 09/17/23 Status: Ordered Start: 09-04-2021 take 1 tablet by colin once daily Vesicare 10 mg Tab 10 mg = 1 tab(s), Oral, Daily, # 30 tab(s), Refills(s) 5, Pharmacy: [facility], 163, cm, 04/09/22 14:41:00 EDT, Height/Length Dosing, 80, kg, 04/09/22 14:41:00 EDT, Weight Dosing Start Date: 04/18/22 Status: Ordered Symbicort 160/4.5 inhalation aerosol with adapter (17 sources) Start: 10-25-2021 take 2 puff(s) by inhalation twice daily Symbicort 160/4.5 inhalation aerosol with adapter 2 puff(s), Inhalation, BID, Refill(s) 0, Asthma Start Date: 10/25/21 Status: Ordered Start: 10-25-2021 take 2 puff(s) by in halation twice daily Symbicort 160/4.5 inhalation aerosol with adapter 2 puff(s), Inhalation, BID, Refill(s) 0 Start Date: 10/25/21 Status: Ordered thiamine 100 mg oral tablet (11 sources) Start: 06-14-2021 take 1 tablet by mouth once daily VITAMIN B-1, MONONITRATE, 100 mg tablet TAKE ONE TABLET BY MOUTH ONCE DAILY 30 tablet 11 12/27/2022 Active tiZANidine 4 mg oral tablet (7 sources) Central alpha-2 Adrenergic Agonist Start: 08-05-2023 take 1 tablet by mouth every six hours as needed tiZANidine (ZANAFLEX) 4 mg tablet Take 1 tablet (4 mg total) by mouth every 6 (six) hours as needed for muscle spasms. 60 tablet 1 08/05/2023 Active Start: 10-12-2022 End: 10-17-2022 take 1 capsule by mouth three times daily Zanaflex 4 mg oral capsule 4 mg = 1 cap(s), Oral, TID, X 5 day(s), # 15 cap(s), Refills(s) 0 Start Date: 10/12/22 Stop Date: 10/17/22 Status: Ordered Start: 06-14-2021 End: 12-07-2021 take 4 mg by mouth every eight hours Tizanidine Discontinued 4 MG PO Q8H June 14, 2021 12:00am December 07, 2021 10:36am traMADol (1 source) Opioid Agonist Start: 09-17-2023 TRAMADOL HYDROCHLORIDE TRAMADOL HYDROCHLORIDE Start Date: 09/17/23 Status: Ordered Ventolin HFA 90 mcg/inh Aerosol (20 sources) Start: 04-28-2018 take 2 puff(s) by inhalation four times daily Ventolin HFA 90 mcg/inh Aerosol 2 puff(s), Inhalation, QID Shortness of breath or wheezing, Refill(s) 0, COPD Start Date: 04/28/18 Status: Ordered Vitamin B1 (17 sources) Start: 10-20-2019 take 50 mg by mouth once daily Vitamin B1 50 mg, Oral, Daily, Refills(s) 0, Prophylaxis Start Date: 10/20/19 Status: Ordered Vitamin B1 100 mg Tab (20 sources) Start: 10-25-2021 take 1 tablet by mouth once daily Vitamin B1 100 mg Tab 100 mg = 1 tab(s), Oral, Daily, Refills(s) 0, Prophylaxis Start Date: 10/25/21 Status: Ordered Vitamin D (5 sources) Vitamin D 50,000 U Active Completed/Discontinued Medications Medication Drug Class(es) Dates Sig (Normalized) Sig (Original) desoximetasone 0.5 mg/ml topical cream (2 sources) Corticosteroid Start: 06-14-2021 End: 12-07-2021 Desoximetasone Discontinued 0.05 APPLIC TOPICAL Twice daily June 14, 2021 12:00am December 07, 2021 10:26am diclofenac sodium 0.01 mg/mg topical gel (2 sources) Nonsteroidal Anti-inflammatory Drug Start: 06-14-2021 End: 12-07-2021 Diclofenac Sodium Discontinued 1 EACH TOPICAL Twice daily June 14, 2021 12:00am December 07, 2021 10:27am 1 ml erenumab-aooe 140 mg/ml auto-injector (4 sources) Start: 06-14-2021 End: 12-07-2021 inject 140 mg by subcutaneous injection every month Erenumab-Aooe (Aimovig Autoinjector) 140 mg/mL auto-injector Discontinued 140 MG SUBCUT every month June 14, 2021 12:00am December 07, 2021 10:28am takes on the of every month 12 hr orphenadrine citrate 100 mg extended release oral tablet (2 sources) Muscle Relaxant Start: 06-14-2021 End: 12-07-2021 take 100 mg by mouth twice daily Orphenadrine Citrate Discontinued 100 MG PO Twice daily June 14, 2021 12:00am December 07, 2021 10:33am QUEtiapine 50 mg oral tablet (2 sources) Atypical Antipsychotic Start: 06-14-2021 End: 12-07-2021 take 1 tablet by mouth once daily at bedtime Quetiapine (Seroquel) 50 mg Tablet Discontinued 50 MG PO Daily at bedtime June 14, 2021 12:00am December 07, 2021 10:35am Vitamin D 50,000 intl units (1.25 mg) oral capsule (20 sources) Start: 05-07-2018 take 1 capsule by mouth once Vitamin D 50,000 intl units (1.25 mg) oral capsule 50,000 International_Unit = 1 cap(s), Oral, Saturday, Refills(s) 0, Prophylaxis Start Date: 05/07/18 Status: Ordered Problems Active Problems Problem Classification Problem Date Documented Da te Episodic/Chronic Abdominal pain (20 sources) Flank pain 04-09-2022 Episodic Acquired foot deformities (4 sources) Hammer toe; 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: [Other hammer toe(s) (acquired), right foot] Onset: 3 11-12-2022 Chronic Acute myocardial infarction (9 sources) Myocardial infarction 11-16-2022 Chronic Comment on above: 2004 Administrative/social admission (1 source) Encounter for issue of repeat prescription; 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: [ENC FOR ISSUE REPEAT PRESCRIPTION] Onset: 3 Episodic Anxiety disorders (20 sources) Agoraphobia; 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: [Anxiety] Onset: 1 02-14-2015 Chronic Attention-deficit, conduct, and disruptive behavior disorders (20 sources) Attention deficit hyperactivity disorder; 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: [Attention-deficit hyperactivity disorder, unspecified type] Onset: 2 02-14-2015 Chronic Calculus of urinary tract (20 sources) History of calculus of kidney; 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: [Personal history of urinary calculi] Onset: 4 10-25-2021 Episodic Chronic obstructive pulmonary disease and bronchiectasis (20 sources) Chronic obstructive lung disease; 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: [Chronic obstructive pulmonary disease, unspecified] Onset: 4 06-16-2015 Chronic Conditions associated with dizziness or vertigo (20 sources) Dizziness; 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: [Vertigo] Onset: 2 08-17-2015 Episodic Diabetes mellitus with complications (4 sources) Diabetic peripheral neuropathy; 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: [Type 2 diabetes mellitus with diabetic polyneuropathy] Onset: 2 06-06-2023 Chronic Diabetes mellitus without complication (20 sources) Diabetes mellitus; 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: [Type 2 diabetes mellitus] Onset: 2 04-28-2018 Chronic Digestive congenital anomalies (20 sources) Finding of esophagus 05-09-2022 Chronic Diseases of white blood cells (4 sources) Leukocytosis; 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: [Elevated white blood cell count, unspecified] Onset: 3 11-12-2022 Chronic Disorders of lipid metabolism (20 sources) Hypercholesterolemia; 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: [Hyperlipidemia] Onset: 4 09-11-2018 Chronic Disorders of teeth and jaw (20 sources) Arthralgia of temporomandibular joint; 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: [Arthralgia of temporomandibular joint, unspecified side] Onset: 3 04-28-2018 Episodic E Codes: Fall (1 source) Unspecified fall, initial encounter; 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: [UNSPECIFIED FALL INITIAL ENCOUNTER] Onset: 3 Episodic Esophageal disorders (20 sources) Gastroesophageal reflux disease; 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: [Diffuse spasm of esophagus] Onset: 4 01-23-2020 Chronic Essential hypertension (20 sources) Benign hypertension; 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: [Hypertensive disorder] Onset: 2 09-11-2018 Chronic Gastritis and duodenitis (20 sources) Gastritis; 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: [Gastritis, unspecified, without bleeding] Onset: 3 06-16-2015 Episodic Gastroduodenal ulcer (except hemorrhage) (20 sources) Gastric ulcer; 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: [Gastric ulcer, unspecified as acute or chronic, without hemorrhage or perforation] Onset: 3 Chronic Genitourinary symptoms and ill-defined conditions (20 sources) Incontinence; 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: [Urge incontinence of urine] Onset: 2 04-21-2021 Chronic Genitourinary symptoms and ill-defined conditions (20 sources) Dysuria; 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: [Incomplete emptying of bladder] Onset: 2 09-04-2021 Episodic Headache; including migraine (20 sources) Migraine without aura; 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: [Migraine] Onset: 2 09-11-2018 Chronic Heart valve disorders (20 sources) Mitral valve prolapse; 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: [Nonrheumatic mitral (valve) prolapse] Onset: 4 06-16-2015 Chronic Hemorrhoids (10 sources) Hemorrhoids; 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: [Unspecified hemorrhoids] Onset: 3 01-29-2023 Episodic Mood disorders (20 sources) Bipolar disorder; 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: [Depressive disorder] Onset: 1 06-16-2015 Chronic Mycoses (1 source) Candidiasis of mouth; 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: [Candidal stomatitis] 08-16-2023 Episodic Nausea and vomiting (20 sources) Vomiting; 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: [Nausea and vomiting] Onset: 3 11-07-2021 Episodic Osteoarthritis (20 sources) Degenerative joint disease involving multiple joints; 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: [Osteoarthritis] Onset: 4 09-11-2018 Chronic Osteoporosis (9 sources) Osteoporosis 11-16-2022 Chronic Other acquired deformities (4 sources) Contracture of joint of right ankle; 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: [Contracture, right ankle] Onset: 3 06-06-2023 Chronic Other aftercare (1 source) Other care home (current) drug therapy; 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: [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] Onset: 3 Episodic Other aftercare (4 sources) Encounter for change or removal of surgical wound dressing; 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: [ENC CHG/REMOVAL SURG WOUND DRSG] Onset: 3 Episodic Other and ill-defined heart disease (5 sources) Diastolic dysfunction; 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: [Heart disease, unspecified] Chronic Other and ill-defined heart disease (3 sources) Heart disease, unspecified Chronic Other and unspecified benign neoplasm (10 sources) Polyp of colon; 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: [Polyp of colon] Onset: 3 01-29-2023 Episodic Other bone disease and musculoskeletal deformities (4 sources) Osteochondritis dissecans of right ankle; 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: [Osteochondritis dissecans, right ankle and joints of right foot] Onset: 2 05-21-2022 Chronic Other connective tissue disease (20 sources) Fibromyositis 02-14-2015 Episodic Other connective tissue disease (3 sources) Pain in left foot; 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: [PAIN IN LEFT FOOT] Onset: 3 Episodic Other connective tissue disease (1 source) Myalgia, other site; 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: [Myalgia, other site] Onset: 3 Episodic Other diseases of bladder and urethra (1 source) Detrusor overactivity; 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: [Overactive bladder] Onset: 4 Chronic Other diseases of bladder and urethra (1 source) Overactive bladder 09-17-2023 Chronic Other diseases of bladder and urethra (20 sources) Urethral stricture; 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: [Unspecified urethral stricture, male, unspecified site] Onset: 2 04-21-2021 Episodic Other gastrointestinal disorders (20 sources) Irritable bowel syndrome 08-17-2015 Chronic Other gastrointestinal disorders (20 sources) Irritable bowel syndrome with diarrhea; 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: [Irritable bowel syndrome with diarrhea] Onset: 2 Chronic Other gastrointestinal disorders (20 sources) Alteration in bowel elimination 11-07-2021 Episodic Other gastrointestinal disorders (20 sources) Dysphagia; 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: [Dysphagia, unspecified] Onset: 2 06-16-2021 Episodic Other gastrointestinal disorders (2 sources) Abnormal feces; 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: [Other fecal abnormalities] Onset: 3 Episodic Other gastrointestinal disorders (19 sources) Loose stool; 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: [Other fecal abnormalities] Onset: 3 09-14-2022 Episodic Other gastrointestinal disorders (2 sources) Incontinence of feces; 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: [Full incontinence of feces] Onset: 4 Episodic Other hereditary and degenerative nervous system conditions (4 sources) Restless legs; 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: [Restless legs syndrome] Onset: 3 06-06-2023 Chronic Other injuries and conditions due to external causes (19 sources) Foreign body in stomach; 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: [Foreign body in stomach, initial encounter] Onset: 3 09-14-2022 Episodic Other injuries and conditions due to external causes (13 sources) Compression injury of nerve; 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: [Other injury of unspecified body region, initial encounter] Onset: 3 11-16-2022 Episodic Comment on above: pinched nerve in nathaly k also Other lower respiratory disease (4 sources) Dyspnea on exertion; 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: [Dyspnea, unspecified] Episodic Other nervous system disorders (20 sources) Disorder of the peripheral nervous system 02-14-2015 Chronic Other nervous system disorders (20 sources) Tarsal tunnel syndrome; 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: [Tarsal tunnel syndrome, unspecified lower limb] Onset: 3 04-28-2018 Chronic Other nervous system disorders (1 source) Chronic pain; 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: [Other chronic pain] Onset: 3 Chronic Other nervous system disorders (1 source) Other chronic pain; 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: [OTHER CHRONIC PAIN] Onset: 2 Chronic Other nervous system disorders (4 sources) Difficulty walking; 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: [Difficulty in walking, not elsewhere classified] Onset: 2 05-21-2022 Chronic Other nervous system disorders (4 sources) Neuropathy; 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: [Polyneuropathy, unspecified] Onset: 2 05-21-2022 Chronic Other nervous system disorders (4 sources) Downey neuroma of bilateral feet; 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: [Lesion of plantar nerve, bilateral lower limbs] Onset: 3 11-12-2022 Chronic Other nervous system disorders (4 sources) Parkinsonism due to drug; 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: [Other drug induced secondary parkinsonism] Onset: 3 06-06-2023 Chronic Other nervous system disorders (4 sources) Bilateral entrapment of ulnar nerves at elbow; 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: [Lesion of ulnar nerve, bilateral upper limbs] Onset: 3 06-20-2023 Chronic Other nervous system disorders (4 sources) Abnormal gait; 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: [Unspecified abnormalities of gait and mobility] Onset: 3 07-01-2023 Episodic Other nutritional; endocrine; and metabolic disorders (20 sources) Body mass index 30+ - obesity; 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: [Obesity, unspecified] Onset: 2 04-09-2022 Chronic Other upper respiratory disease (4 sources) Allergic rhinitis; 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: [Allergic rhinitis, unspecified] Onset: 2 05-21-2022 Chronic Personality disorders (20 sources) Personality disorder; 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: [Borderline personality disorder] Onset: 2 04-28-2018 Chronic Residual codes; unclassified (20 sources) Obstructive sleep apnea syndrome 09-11-2018 Chronic Residual codes; unclassified (20 sources) Sleep apnea; 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: [Sleep apnea, unspecified] Onset: 3 06-16-2015 Chronic Comment on above: does not use cpap an y longer pt uses CPAP Residual codes; unclassified (20 sources) Chronic pain 06-16-2015 Episodic Residual codes; unclassified (5 sources) Tobacco dependence syndrome; 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: [Tobacco use] Episodic Residual codes; unclassified (3 sources) Tobacco use Episodic Residual codes; unclassified (3 sources) Family history of malignant neoplasm of digestive organ; 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: [Family history of malignant neoplasm of digestive organs] Onset: 3 Episodic Residual codes; unclassified (15 sources) Family history of colorectal cancer 09-14-2022 Episodic Residual codes; unclassified (9 sources) Menopause present 11-16-2022 Episodic Residual codes; unclassified (1 source) Acquired absence of both cervix and uterus; 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: [ACQUIRED ABSENCE BOTH CERVIX AND UTERUS] Onset: 3 Episodic Spondylosis; intervertebral disc disorders; other back problems (14 sources) Spondylosis without myelopathy or radiculopathy, lumbosacral region; 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: [Other intervertebral disc degeneration, lumbar region] Onset: 0 07-01-2023 Chronic Spondylosis; intervertebral disc disorders; other back problems (20 sources) Radiculopathy, cervical region; 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: [Radiculopathy, lumbar region] Onset: 1 Episodic Substance-related disorders (20 sources) Smoker; 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: [Opioid dependence] Onset: 2 01-23-2020 Chronic Comment on above: Added secondary to d ocumentation in Social History. Unclassified (20 sources) Finding of sensation of bladder 09-04-2021 Unclassified (20 sources) Bezoar in stomach 05-09-2022 Unclassified (20 sources) Patient encounter status 05-09-2022 Unclassified (3 sources) LOW BACK PAIN, UNSPECIFIED; 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: [LOW BACK PAIN, UNSPECIFIED] Onset: 2 Unclassified (1 source) Encounter for screening for malignant neoplasm of respiratory organs; 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: [Encounter for screening for malignant neoplasm of respiratory organs] Onset: 3 Urinary tract infections (1 source) Urinary tract infectious disease; 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: [Urinary tract infection, site not specified] Onset: 3 Episodic Past or Other Problems Problem Classification Problem Date Documented Da te Episodic/Chronic Cardiac dysrhythmias (1 source) Tachycardia, unspecified; 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: [TACHYCARDIA UNSPECIFIED] Onset: 2 Episodic Diseases of mouth; excluding dental (8 sources) Hypertrophy of parotid gland; 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: [Hypertrophy of salivary gland] Onset: 1 12-14-2020 Episodic Fluid and electrolyte disorders (4 sources) Hyponatremia; 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: [Hypo-osmolality and hyponatremia] Onset: 3 11-12-2022 Episodic Fracture of upper limb (2 sources) Displaced fracture of coracoid process, right shoulder, subsequent encounter for fracture with nonunion; 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: [3-part fracture of surgical neck of right humerus, subsequent encounter for fracture with routine healing] Onset: 2 Episodic Headache; including migraine (4 sources) Headache; 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: [Headache] Onset: 3 04-12-2020 Episodic Joint disorders and dislocations; trauma-related (1 source) Other tear of medial meniscus, current injury, right knee, subsequent encounter; 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: [OTH TEAR MED MENSC CURR RT KNEE SUB] Onset: 2 Episodic Mood disorders (4 sources) Mood disorders Onset: 3 06-20-2023 Nonmalignant breast conditions (4 sources) Unspecified lump in the left breast, lower outer quadrant; 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: [UNS LUMP IN LT BREAST LW OUTR QUAD] Onset: 3 Episodic Other acquired deformities (4 sources) Deformity of metatarsal; 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: [Unspecified acquired deformity of unspecified lower leg] Onset: 3 06-06-2023 Episodic Other aftercare (4 sources) Patient encounter status; 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: [Encounter for therapeutic drug level monitoring] Onset: 3 10-22-2022 Episodic Other bone disease and musculoskeletal deformities (1 source) Other specified disorders of bone density and structure, unspecified site; 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: [OTH D/O BONE DEN STRUCT UNS SITE] Onset: 2 Episodic Other bone disease and musculoskeletal deformities (4 sources) Chondromalacia, right knee; 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: [CHONDROMALACIA RIGHT KNEE] Onset: 2 Episodic Other bone disease and musculoskeletal deformities (4 sources) Osteopenia; 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: [Other specified disorders of bone density and structure, unspecified thigh] Onset: 3 06-06-2023 Episodic Other connective tissue disease (8 sources) Fibromyalgia; 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: [Fibromyalgia] Onset: 0 04-12-2020 Episodic Other connective tissue disease (2 sources) Fibromyalgia; 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: [FIBROMYALGIA] Onset: 2 Episodic Other connective tissue disease (4 sources) Impingement syndrome of right shoulder; 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: [IMPINGEMENT SYNDROME RIGHT SHOULDER] Onset: 2 Episodic Other connective tissue disease (4 sources) H/O: musculoskeletal disease; 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: [Personal history of other diseases of the musculoskeletal system and connective tissue] Onset: 5 04-12-2020 Episodic Other connective tissue disease (4 sources) Pain in bilateral legs; 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: [Pain in right leg] Onset: 2 04-12-2020 Episodic Other connective tissue disease (4 sources) Pain in limb; 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: [Pain in unspecified limb] Onset: 1 04-12-2020 Episodic Other connective tissue disease (4 sources) Bicipital tenosynovitis; 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: [Bicipital tendinitis, unspecified shoulder] Onset: 4 05-21-2022 Episodic Other connective tissue disease (4 sources) Disorder of bursa of shoulder region; 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: [Bursopathy, unspecified] Onset: 4 05-21-2022 Episodic Other connective tissue disease (4 sources) Bilateral plantar fasciitis; 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: [Plantar fascial fibromatosis] Onset: 3 11-12-2022 Episodic Other connective tissue disease (4 sources) Spasm of cervical paraspinous muscle; 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: [Other muscle spasm] Onset: 3 06-06-2023 Episodic Other connective tissue disease (4 sources) Myofascial pain syndrome; 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: [Myalgia, other site] Onset: 4 07-01-2023 Episodic Other diseases of veins and lymphatics (4 sources) Peripheral venous insufficiency; 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: [Venous insufficiency (chronic) (peripheral)] Onset: 2 05-21-2022 Episodic Other gastrointestinal disorders (9 sources) Altered bowel function; 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: [Change in bowel habit] Onset: 2 Episodic Other gastrointestinal disorders (4 sources) Diarrhea, unspecified; 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: [DIARRHEA UNSPECIFIED] Onset: 2 Episodic Other gastrointestinal disorders (4 sources) History of gastroesophageal reflux disease; 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: [Personal history of other diseases of the digestive system] Onset: 5 04-12-2020 Episodic Other injuries and conditions due to external causes (4 sources) Foreign body in stomach, initial encounter; 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: [Foreign body in stomach] Onset: 2 05-21-2022 Episodic Other lower respiratory disease (4 sources) History of chronic obstructive airway disease; 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: [Personal history of other diseases of the respiratory system] Onset: 5 04-12-2020 Episodic Other nervous system disorders (1 source) Other acute postprocedural pain; 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: [OTHER ACUTE POSTPROCEDURAL PAIN] Onset: 2 Episodic Other non-traumatic joint disorders (5 sources) Pain in right knee; 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: [PAIN IN RIGHT KNEE] Onset: 2 Episodic Other non-traumatic joint disorders (1 source) Stiffness of right knee, not elsewhere classified; 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: [STIFFNESS RIGHT KNEE NEC] Onset: 2 Episodic Other non-traumatic joint disorders (4 sources) Pain in left shoulder; 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: [Pain in joint, shoulder region] Onset: 5 04-12-2020 Episodic Other nutritional; endocrine; and metabolic disorders (4 sources) Overweight; 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: [Overweight] Onset: 3 01-24-2023 Episodic Residual codes; unclassified (4 sources) Asymptomatic menopausal state; 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: [ASYMPTOMATIC MENOPAUSAL STATE] Onset: 2 Episodic Screening and history of mental health and substance abuse codes (12 sources) H/O: anxiety state; 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: [Personal history of other mental and behavioral disorders] Onset: 5 04-12-2020 Episodic Sprains and strains (7 sources) Sprain of unspecified ligament of left ankle, initial encounter; 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: [Sprain of unspecified site of left knee, initial encounter] Onset: 2 04-04-2023 Episodic Substance-related disorders (4 sources) Continuous opioid dependence; 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: [Opioid use, unspecified, uncomplicated] Onset: 5 Resolved: 3 10-22-2022 Episodic Superficial injury; contusion (4 sources) Contusion of sacral region; 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: [Contusion of lower back and pelvis, initial encounter] Onset: 3 04-04-2023 Episodic Unclassified (20 sources) Bipolar (qualifier value) 09-11-2018 Unclassified (6 sources) Exposure to 2019 novel coronavirus; 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: [Contact with and (suspected) exposure to COVID19] Unclassified (1 source) LOW BACK PAIN, UNSPECIFIED; 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: [LOW BACK PAIN, UNSPECIFIED] Onset: 2 Unclassified (4 sources) Onset: 3 07-10-2023 Results Test Name Value Interpretation Reference Range Facil ity Screenson 09-18-2023 Screens [id number] FF Normal [facility] Ambulatory Visit Summaryon 0 09-17-2023 Ambulatory Visit Summary KETURAH HERRERA :1970 Visit Date:09/17/2023 Ambulatory Visit Instructions Your Diagnosis OAB (overactive bladder) Mixed incontinence urge and stress Gross hematuria Kidney stones History of kidney stones History of UTI Fecal incontinence Your Care Team Attending Physician - SHERI JIMENES PA-C Primary Care Physician - ROBERT GIRON DO This Is Your Medications List Misc Prescription (TRAMADOL HYDROCHLORIDE) Oxygen (Oxygen - for Home) albuterol (Ventolin HFA 90 mcg/inh Aerosol) alprazolam (Xanax) aripiprazole (Abilify) atorvastatin (Lipitor 40 mg Tab) calcium-vitamin D (Calcium 600+D) carvedilol (carvedilol 25 mg Tab) cetirizine (Zyrtec) diltiazem (diltiazem CD 120 mg/24 hours Cap-ER) ergocalciferol (Vitamin D 50,000 intl units (1.25 mg) oral capsule) fremanezumab (Ajovy Autoinjector 225 mg/1.5 mL subcutaneous solution) furosemide (Lasix) loperamide (Imodium A-D 2 mg oral tablet) meclizine montelukast (montelukast 10 mg Tab) nabumetone (nabumetone 750 mg Tab) naratriptan (naratriptan 2.5 mg Tab) nortriptyline (nortriptyline 25 mg Cap) ondansetron (ondansetron 4 mg Dis Tab) rimegepant (Nurtec ODT) thiamine (Vitamin B1 100 mg Tab) Procedures Performed Colonoscopy (01/17/2023), Hammer toe (11/21/2022), Metatarsal (11/21/2022), Esophagogastroduodenosco py (03/29/2022), Peroneal tendon (11/08/2021), Esophagogastroduodenosco py (06/26/2021), Urodynamics (05/16/2021), Colonoscopy (03/14/2020), Catheterization of left heart (03/03/2020), Excision of Downey's neuroma (10/22/2018), Removal of toenail (10/22/2018), Tarsal tunnel release (05/07/2018), Right tarsal tunnel release (02/15/2016), Left instep plantar fasciotomy with division of soft tissue & fascia & muscle. (08/17/2015), right instep plantar fasciotomy with division of muscle and fascia (06/22/2015), Appendectomy, Arthroscopy of knee, Breast surgery, Carpal tunnel release, Cholecystectomy, Colonoscopy, Colonoscopy, Esophagogastroduodenosco py, Esophagogastroduodenosco py, ESWL of kidney, Excision of ganglion cyst, Hysterectomy, ingrown toenail removal, Lithotripsy, Mortons neuroma, salpingectomy with unilateral oophorectomy, Sinus, Suspension of bladder, Tarsal tunnel, Tubal ligation, Ulnar nerve at elbow, Ulnar nerve decompression. Discharge Vitals Heart Rate (Peripheral) 65 Respiratory Rate 16 Blood Pressure 135/52 Height 163 cm Height 64 in Weight 81 kg Weight 178.2 lb BMI 30.49 What to do next Scheduled Follow-Up Appointments Saturday. 2023 1:00 PM EDT With: SHERI JIMENES PA-C Where: [facility] Patient Educationon 09-17-19 24 Patient Education Urology Hematuria, Adult Hematuria is blood in the urine. Blood may be visible in the urine, or it may be identified with a test. This condition can be caused by infections of the bladder, urethra, kidney, or prostate. Other possible causes include: ? Kidney stones. ? Cancer of the urinary tract. ? Too much calcium in the urine. ? Conditions that are passed from parent to child (inherited conditions). ? Exercise that requires a lot of energy. Infections can usually be treated with medicine, and a kidney stone usually will pass through your urine. If neither of these is the cause of your hematuria, more tests may be needed to identify the cause of your symptoms. It is very important to tell your health care provider about any blood in your urine, even if it is painless or the blood stops without treatment. Blood in the urine, when it happens and then stops and then happens again, can be a symptom of a very serious condition, including cancer. There is no pain in the initial stages of many urinary cancers. Follow these instructions at home: Medicines ? Take [id number] and prescription medicines only as told by your health care provider. ? If you were prescribed an antibiotic medicine, take it as told by your health care provider. Do not stop taking the antibiotic even if you start to feel better. Eating and drinking ? Drink enough fluid to keep your urine pale yellow. It is recommended that you drink 3?4 quarts (2.8?3.8 L) a day. If you have been diagnosed with an infection, drinking cranberry juice in addition to large amounts of water is recommended. ? Avoid caffeine, tea, and carbonated beverages. These tend to irritate the bladder. ? Avoid alcohol because it may irritate the prostate (in males). General instructions ? If you have been diagnosed with a kidney stone, follow your health care provider's instructions about straining your urine to catch the stone. ? Empty your bladder often. Avoid holding urine for long periods of time. ? If you are female: ? After a bowel movement, wipe from front to back and use each piece of toilet paper only once. ? Empty your bladder before and after sex. ? Pay attention to any changes in your symptoms. Tell your health care provider about any changes or any new symptoms. ? It is up to you to get the results of any tests. Ask your health care provider, or the department that is doing the test, when your results will be ready. ? Keep all follow-up visits. This is important. Contact a health care provider if: ? You develop back pain. ? You have a fever or chills. ? You have nausea or vomiting. ? Your symptoms do not improve after 3 days. ? Your symptoms get worse. Get help right away if: ? You develop severe vomiting and are unable to take medicine without vomiting. ? You develop severe pain in your back or abdomen even though you are taking medicine. ? You pass a large amount of blood in your urine. ? You pass blood clots in your urine. ? You feel very weak or like you might faint. ? You faint. Summary ? Hematuria is blood in the urine. It has many possible causes. ? It is very important that you tell your health care provider about any blood in your urine, even if it is painless or the blood stops without treatment. ? Take [id number] and prescription medicines only as told by your health care provider. ? Drink enough fluid to keep your urine pale yellow. This information is not intended to replace advice given to you by your health care provider. Make sure you discuss any questions you have with your health care provider. Document Revised: 04/05/2021 Document Reviewed: 04/05/2021 [employer] Patient Education ? 2022 [facility] Analytics. [facility] Retail - Clinical Noteon Retail - Clinical Note [id number]#1.00TIF F [facility] Retail - Clinical Note [id number]#1.00TIF F [facility] Urology Office/Clinic Noteon 09-17-2023 Urology Office/Clinic Note Chief Complaint 1yr + follow up HPI Staff PRW pt 1yr (has been RS'd by pt a couple times) DX:Frequency, Incomplete Bladder Emptying, Mixed Incontinence, Nocturia & Flank pain Pt was scheduled for Botox, however cancelled due to insurance. *VESIcare 10mg qd therapy- pt no longer taking. States the pharmacy stopped giving it to her (unsure if refill ran out?) [facility] 10/20/22 CC: flank pain and trouble urinating CT ap 10/20/22 NEG C&S 10/20/22 VESIcare did improve frequency. Cannot remember if it helped with leaking. Currently leaks with coughing and sneezing. Wears a pad and brief (not simultaneously) . Changes 3-4x/day. Denies pain/burning. Last noted visible blood the other day. Occasional Rt flank pain. Denies passing stone since last encounter. PT has supply order for incontinence needs that she is requesting we send, also interested in restarting VESIcare therapy. History of Present Illness staff HPI reviewed and agree. Review of Systems PHQ Score Initial Depression Screen Score: 0 SCORE no fever, chills, malaise, myalgia. no rash/lesions. no chest pain, palpitations, or SOB. no abdominal pain, nausea, vomiting. no unilateral calf swelling, redness, pain Physical Exam Vitals & Measurements HR: 65(Peripheral) RR: 16 BP: 135/52 HT: 64 in HT: 163 cm WT: 81 kg WT: 178.2 lb BMI: 30.49 General: nontoxic, NAD Mouth: moist mucosa Lungs: normal respiratory effort Cardio: regular rate, good distal perfusion Abdomen: nondistended, no suprapubic distention or tenderness, no CVA tenderness Neurologic: Grossly normal Skin: No rashes or suspicious lesions Assessment/Plan Dr. Pearson pt 1. Mixed incontinence urge and stress (N39.46: Mixed incontinence) BBS 19. Reports she has had increased frequency, urgency, and leakage. UUI > SOPHIA Leaks w/ coughing and sneezing Wears a pad/brief, changes 3-4x/day. Failed Oxybutynin 5mg due to N&V. Botox was cx'd in the past due to complications with insurance coverage. Was taking VESIcare 10mg qd. Stopped this a few months ago due to pharmacy not supplying her with it, unsure if she ran out of refills. States she felt this helped with urinary sx but did not completely resolve them. Denies intolerable SEs when she took it. Would like to restart VESIcare. HgA1c 02/21/22 - 5.4, states her most recent level is 6.2. -Begin VESIcare. [email or web address] f/u 3 mos to ensure working well. -Supply order provided for pads/incontinence supplies Ordered: E&M of Est. Patient Moderate 30-39 Min 85635 Urnls Dip Stick Auto w/o Microscopy POC 39536 2. Fecal incontinence (R15.9: Full incontinence of feces) Hx of IBS. Continues having complications with diarrhea and fecal incontinence follows with PCP used to follow with Dr. Bela CAZARES but he retired Ordered: E&M of Est. Patient Moderate 30-39 Min 19665 3. OAB (overactive bladder) (N32.81: Overactive bladder) see #1 Ordered: E&M of Est. Patient Moderate 30-39 Min 75150 4. Gross hematuria (R31.0: Gross hematuria) S/p Cysto 05/16/21. Reports she saw visible blood in her urine x1 a few days ago. No recurrence since. had R flank pain at the time, non-radiating, mild-moderate. no N/V. no F/C. no LUTS. did not see any stone pass. all sx have since resolved. UA today negative for blood and infection. Discussed options. The pt. is aware that a full workup for hematuria would include upper urinary tract imaging, a scope of the bladder, and a cytology test of the urine. Even though the risk of finding urinary tract pathology such as kidney tumors, kidney stones, or bladder cancer is low; there is a risk that these problems may exist. The pt. accepts this risk and elects not to do the workup. Should there be the development of any gross blood or clots in the urine, I should be notified immediately and a workup would be generated. Ordered: E&M of Est. Patient Moderate 30-39 Min 57725 5. Kidney stones (N20.0: Calculus of kidney) S/p lithotripsy 06/06/15. 24hr urine 10/25/19 done for unrelated reason (ordered by external provider): Total volume 2,525mL. CT AP wo con 10/20/22 [facility] - A few tiny nonobstructing R renal calculi. No hydro. Denies stone passage in the past year but did have R flank/back pain a few days ago + gross hematuria. pain did not radiate. no other sx. did not see anything pass. advised pt to contact office should sx recur. continue stone prevention diet/high fluid intake. Ordered: E&M of Est. Patient Moderate 30-39 Min 78067 Orders: solifenacin, 10 mg = 1 tab(s), Oral, Daily, # 90 tab(s), Refills(s) 3, Pharmacy: [facility], 163, cm, 09/17/23 8:25:00 EST, Height/Length Dosing, 81, kg, 09/17/23 8:25:00 EST, Weight Dosing Follow-up With When Contact Information YUDY NORRIS, SHERI Kaminski, URL [address] [place] [address] [phone] Additional Instructions: 3 mos (restart med) Patient Education Hematuria, Adult Documentation record (more content not included)... Normal [facility] Comment on above: Result Comment: Elec tronically Signed By: SHERI JIMENES PA-C\.br\Date and Time Signed: 09/17/23 09:07 EST\.br\Electronically Co-Signed By: Deisy Simon\.br\Date and Time Co-Signed: 09/17/23 09:00 EST Consent for Treatmenton 12-0 Consent for Treatment [id number]#1.00TIF F Normal [facility] Heart and Vascular Office/Cl inic Noteon 07-25-2023 Heart and Vascular Office/Clinic Note History of Present Illness Patient is a very pleasant 52-year-old diabetic female with hypertension, hypercholesterolemia, former patient of Dr. Beltran who performed a left heart catheterization on 03/03/2020 with the following results: CONCLUSIONS: 1. Essentially normal coronary arteriograms. 2. Noncardiac chest pain. [1] Subsequent of that she underwent a 2D echo with Doppler on 06/07/2021 with the following results: (06/07/2021 14:15 EDT Echo Transthoracic Complete) SUMMARY/CONCLUSION: 1. Normal left ventricle and right ventricle. 2. Borderline impaired diastolic relaxation. 3. No significant valve disease. 4. Normal estimated pulmonary artery pressure. [2] In addition she underwent a 14-day Holter on 06/01/2021 with the following results: CONCLUSIONS: Essentially normal 14 day event monitor with subjective symptoms of skipped beats, chest pain, shortness of breath and light-headedness all of which corresponded to either normal sinus rhythm or sinus tachycardia. There was an autotrigger of sinus bradycardia while the patient was asleep on 05/21/2021 at 02:07:33. There was also autotrigger on 05/21/2021 which showed sinus rhythm with ventricular bigeminy but no symptoms were reported. Recommend clinical correlation or alternative mode of testing to further evaluate patient's symptoms. The patient tolerated the procedure well. No complications. [3] In early May 2023 the patient had an episode of palpitations and chest pain and went to [facility] for evaluation. He then saw Cady on 05/19/2023 and was found that she had sinus tachycardia. She was offered calcium channel laz in addition to her beta-laz but she declined. She then underwent a repeat event monitor on 07/23/2023 which is as below: CONCLUSIONS: Event monitor showing supraventricular tachycardia at 125 beats per minute; each time there were 6 episodes. Clinical correlation suggested. [1] Patient is now here in follow-up. She did agree to combination of Coreg and Cardizem, and reports that her palpitations have markedly improved if not completely resolved. She is compliant with her medications. Patient underwent surgery on her hammertoe and feels much better from that regard. She denies any chest pain, angina, shortness of breath and has very rare palpitations. They appear to be well controlled with beta-laz therapy. She denies any chest pain, angina, or shortness of breath but did have some palpitations which were self terminating. She had no other associated symptoms. She is compliant with her medications and has quit smoking in March 2023, and has had about 10 cigarettes total since then. She has 3 bulging disks, and recently underwent an MRI for her shoulder and her back. She has not yet seen a neurosurgeon. In our office today her blood pressure is 138/82 and pulse of 76 and regular. Physical exam is as below. EKG dated 10/30/2022 shows normal sinus rhythm with nonspecific ST and T wave changes. EKG dated 05/16/2023 shows normal sinus rhythm, anterior ST and T wave changes, no previous myocardial infarction. [1] Review of Systems Constitutional: no fever, no chills, no weakness, no fatigue Respiratory: no shortness of breath, no cough, no orthopnea, no wheezing Cardiovascular: no chest pain, no palpitations, no edema Neuro: no dizziness no light headed no syncope Additional ROS info: Except as noted in the above Review of Systems and in the History of Present Illness all other systems have been reviewed and are negative or noncontributory. Physical Exam General: alert, no acute distress Neck: Supple, noJVD nocarotid bruit Cardiovascular: regular rate and rhythm, no murmur normal peripheral perfusion Respiratory: Lungs CTA, respirations non labored Extremities: no edema Neurological: oriented x 4, LOC appropriate for age, sensation equal & normal bilaterally, speech normal Skin: Warm, dry, intact- no rash or concerning lesions Assessment/Plan 1. SVT: The patient is doing well on combination Coreg and calcium channel laz therapy. Her SVT has markedly improved and she has really no palpitations. I recommended continuing Coreg and diltiazem at this time. She will continue low-dose Lasix as well. 2. Cardiac risk stratification: The patient may require back surgery and/or's shoulder surgery. The patient is at low risk for noncardiac surgery and may proceed without any additional cardiac testing. 3. Smoking cessation: The patient rarely smokes at this time. I advised her to discontinue all tobacco products. 4. Return office Dr. Solis in 6 months. Follow-up No qualifying data available Problem List/Past Medical History Ongoing Anxiety BMI 30.0-30.9,adult Change in bowel habits Colon polyp Depression Dysuria Esophageal spasm Family history of colorectal cancer Feeling of incomplete bladder emptying Flank pain Foreign body in stomach, sequela Gastric bezoar Gastric erosions GERD (gastroesophageal reflux disease) Hemorrhoids (more content not included)... Normal [facility] Comment on above: Result Comment: Elec tronically Signed By: WILL WALSH, Elliott Grewal\.br\Date and Time Signed: 07/25/23 10:57 EST Physician Orderon 07-25-2023 Physician Order [id number]#1.00TI FF Normal [facility] Heart and Vascular Office/Cl inic Noteon 07-18-2023 Heart and Vascular Office/Clinic Note Chief Complaint ER F/U History of Present Illness Keturah Herrera is a 52-year-old female patient of Dr. Solis with past medical history positive for normal coronary arteries per cath in 2019, normal LV function. She has hypertension, hyperlipidemia, GERD, esophageal spasms. She has had issues with palpitations and is currently on a beta-laz for some PVCs. [1] I saw her in May for preoperative cardiac clearance. Apparently she had gone to [facility] for SVT. She was ordered an event monitor and echocardiogram. Insurance has denied her echocardiogram. She had essentially normal echo in 2020. She had a cath with Dr. Beltran in 2019 with normal coronary arteries. She had her foot surgery without event. Here today now for another [facility] visit. She had chest pain and palpitations. Per the notes she had SVT, one of the EKG reports has question of atrial flutter, however, there is no actual image for the twelve-lead. She has no history of atrial flutter and is not anticoagulated. We will have patient sign a request to get the records. She tells me she was wearing event monitor when she was having episode. We have no alerts for atrial fibs/flutter. Review of Systems PHQ Score Initial Depression Screen Score: 0 SCORE Constitutional: no fever, no chills, no weakness, no fatigue Respiratory: no shortness of breath, no cough, no orthopnea, no wheezing Cardiovascular: no chest pain, no palpitations, no edema Neuro:no dizziness no light headed no syncope Additional ROS info: Except as noted in the above Review of Systems and in the History of Present Illness all other systems have been reviewed and are negative or noncontributory. Physical Exam Vitals & Measurements HR: 70(Peripheral) BP: 138/83 SpO2: 99% HT: 64 in HT: 163 cm WT: 81.9 kg WT: 180.18 lb BMI: 30.83 General: alert, no acute distress Neck: Supple, noJVD nocarotid bruit Cardiovascular: regular rate and rhythm, no murmur normal peripheral perfusion Respiratory: Lungs CTA, respirations non labored Extremities:no edema Neurological: oriented x 4, LOC appropriate for age, sensation equal & normal bilaterally, speech normal Skin: Warm, dry, intact- no rash or concerning lesions Cardiac Diagnostics (06/07/2021 14:15 EDT Echo Transthoracic Complete) SUMMARY/CONCLUSION: 1. Normal left ventricle and right ventricle. 2. Borderline impaired diastolic relaxation. 3. No significant valve disease. 4. Normal estimated pulmonary artery pressure. [2] [facility] 03/03/2020 CONCLUSIONS: 1. Essentially normal coronary arteriograms. 2. Noncardiac chest pain. [3] Assessment/Plan 1. Palpitations (R00.2: Palpitations) Will add diltiazem 120 mg daily to her carvedilol 25 mg twice daily. We will request records from [facility]-need to review EKG that had questionable atrial flutter if this is the case she would need to be anticoagulated. She will follow-up with Dr. Solis as previously scheduled to review results of event monitor. Portions of this record may have been created with voice recognition artificial intelligence software, specifically [employer], [employer] and or [employer]. Substitutions may have occurred due to the inherent limitations of voice recognition and artificial intelligence software. Follow-up With When Contact Information WILL WALSH, Elliott [place] [phone] [phone] Additional Instructions: Follow up post event Problem List/Past Medical History Ongoing Anxiety BMI 30.0-30.9,adult Change in bowel habits Colon polyp Depression Dysuria Esophageal spasm Family history of colorectal cancer Feeling of incomplete bladder emptying Flank pain Foreign body in stomach, sequela Gastric bezoar Gastric erosions GERD (gastroesophageal reflux disease) Hemorrhoids History of kidney stones Incomplete emptying of bladder Irritable bowel syndrome with diarrhea Loose stools Menopause Mixed incontinence urge and stress Nausea and vomiting Nocturia Osteoporosis Other urethral stricture, female Pinched nerve in neck Screen for colon cancer Smoker Stress incontinence Tertiary contraction of esophagus Urge incontinence Urinary frequency Vomiting Historical ADHD (attention deficit hyperactivity disorder) Agoraphobia Anxiety Benign hypertension Bipolar Common migraine Depression Diabetes mellitus type 2 Dysphagia Fibromyalgia Generalised osteoarthritis Heart attack Hypercholesterolaemia Neuropathy, peripheral OCD (obsessive compulsive disorder) CELINE - Obstructive sleep apnea Post traumatic stress disorder (PTSD) Procedure/Surgical History Colonoscopy (01/17/2023), Hammer toe (11/21/2022), Metatarsal (11/21/2022), Esophagogastroduodenosco py (03/29/2022), Peroneal tendon (11/08/2021), Esophagogastroduodenosco py (06/26/2021), Urodynamics (05/16/2021), Colonoscopy (03/14/2020), Catheterization of left heart (03/03/2020), Excision of Downey's (more content not included)... Normal [facility] Comment on above: Result Comment: Elec tronically Signed By: Cady CALIX CNP\.br\Date and Time Signed: 07/18/23 14:27 EST Outside Recordson 07-08-2023 Outside Records [id number]#1.00TI FF [facility] Physician Orderon 07-05-2023 Physician Order [id number]#1.00TIF F [facility] Physician Orderon 06-24-2023 Physician Order [id number]#1.00TI FF [facility] Consent for Treatmenton 05-20 Consent for Treatment [id number]#1.00TIF F [facility] Retail - Clinical Noteon Retail - Clinical Note [id number]#1.00TIF F [facility] Insurance Correspondenceon 1 Insurance Correspondence [id number]#1.00TI FF [facility] Outside Recordson 05-24-2023 Outside Records [id number]#1.00TI FF [facility] Outside Records [id number]#1.00TI FF [facility] Heart and Vascular Office/Cl inic Noteon 05-21-2023 Heart and Vascular Office/Clinic Note Chief Complaint [facility] F/U- Tachycardia History of Present Illness Keturah Herrera is a 52-year-old female patient of Dr. Solis with past medical history positive for normal coronary arteries per cath in 2019, normal LV function. She has hypertension, hyperlipidemia, GERD, esophageal spasms. She has had issues with palpitations and is currently on a beta-laz for some PVCs. She was just seen in the office about [address] Solis who cleared patient for foot surgery. Unfortunately, she presented to [facility] on 05/19/2023 with complaints of palpitations. Initially her EKG showed sinus tachycardia in the 130s. She was given some IV diltiazem and repeat EKG showed sinus rhythm. She has baseline ST/T wave abnormalities on all her EKGs. She had negative troponins. Her electrolytes are stable. She was discharged home with follow-up today. She has been doing well without any palpitations since. She reports 3 of these episodes in her lifetime. She denies any chest pain, dyspnea. No further palpitations since the ER visit. Review of Systems PHQ Score Initial Depression Screen Score: 0 Constitutional: no fever, no chills, no weakness, no fatigue Respiratory: no shortness of breath, no cough, no orthopnea, no wheezing Cardiovascular: no chest pain, no palpitations, no edema Neuro:no dizziness no light headed no syncope Additional ROS info: Except as noted in the above Review of Systems and in the History of Present Illness all other systems have been reviewed and are negative or noncontributory. Physical Exam Vitals & Measurements HR: 75(Peripheral) BP: 130/80 SpO2: 98% HT: 64 in HT: 163 cm WT: 79.9 kg WT: 175.78 lb BMI: 30.07 General: alert, no acute distress Neck: Supple, noJVD nocarotid bruit Cardiovascular: regular rate and rhythm, no murmur normal peripheral perfusion Respiratory: Lungs CTA, respirations non labored Extremities:no edema Neurological: oriented x 4, LOC appropriate for age, sensation equal & normal bilaterally, speech normal Skin: Warm, dry, intact- no rash or concerning lesions Procedure [facility]- Dr Fragoso 03/03/20 CONCLUSIONS: 1. Essentially normal coronary arteriograms. 2. Noncardiac chest pain. [1] Cardiac Diagnostics (06/07/2021 14:15 EDT Echo Transthoracic Complete) SUMMARY/CONCLUSION: 1. Normal left ventricle and right ventricle. 2. Borderline impaired diastolic relaxation. 3. No significant valve disease. 4. Normal estimated pulmonary artery pressure. [2] [1] Assessment/Plan 1. Sinus tachycardia (R00.0: Tachycardia, unspecified) In [facility] for palpitation, noted to be sinus tachycardia per Dr Hanson ER notes. CXR negative. Troponin negative. Lytes within range. She has normal coronary arteries per cath in 2019 She has normal LVSF. She should continue her beta laz. Discussed adding low dose diltiazem, but she wishes to hold off for now. Agreeable to getting a 30 day event monitor and update her echocardiogram. She can still proceed with her non-cardiac surgery- do not hold beta laz. Portions of this record may have been created with voice recognition artificial intelligence software, specifically [employer], [employer] and or [employer]. Substitutions may have occurred due to the inherent limitations of voice recognition and artificial intelligence software. Follow-up With When Contact Information WILL WALSH, Elliott Grewal Within 6 weeks [address] [place] [address] [phone] Additional Instructions: Problem List/Past Medical History Ongoing Anxiety BMI 30.0-30.9,adult Change in bowel habits Colon polyp Depression Dysuria Esophageal spasm Family history of colorectal cancer Feeling of incomplete bladder emptying Flank pain Foreign body in stomach, sequela Gastric bezoar Gastric erosions GERD (gastroesophageal reflux disease) Hemorrhoids History of kidney stones Incomplete emptying of bladder Irritable bowel syndrome with diarrhea Loose stools Menopause Mixed incontinence urge and stress Nausea and vomiting Nocturia Osteoporosis Other urethral stricture, female Pinched nerve in neck Screen for colon cancer Smoker Stress incontinence Tertiary contraction of esophagus Urge incontinence Urinary frequency Vomiting Historical ADHD (attention deficit hyperactivity disorder) Agoraphobia Anxiety Benign hypertension Bipolar Common migraine Depression Diabetes mellitus type 2 Dysphagia Fibromyalgia Generalised osteoarthritis Heart attack Hypercholesterolaemia Neuropathy, peripheral OCD (obsessive compulsive disorder) CELINE - Obstructive sleep apnea Post traumatic stress disorder (PTSD) Procedure/Surgical History Colonoscopy (01/17/2023), Hammer toe (11/21/2022), Metatarsal (11/21/2022), Esophagogastroduodenosco py (03/29/2022), Peroneal tendon (11/08/2021), Esophagogastroduodenosco py (06/26/2021), Urodynamics (05/16/2021), Colonoscopy (03/14/2020), Catheter (more content not included)... Normal [facility] Comment on above: Result Comment: Elec tronically Signed By: Cady CALIX CNP\.rosi\Date and Time Signed: 05/21/23 12:56 EDT Consent for Treatmenton Consent for Treatment [id number]: 127 Normal [facility] Physician Orderon 05-20-2023 Physician Order [id number]#1.00CD :127 [facility] Physician Orderon 05-17-2023 Physician Order Confirmed with Ana Rosa olivas @ [facility] that fax was received [id number]#1.00CD :127 Normal [facility] Consent for Treatmenton 04-20 Consent for Treatment [id number]: 127 Normal [facility] Heart and Vascular Office/Cl inic Noteon 05-16-2023 Heart and Vascular Office/Clinic Note History of Present Illness Patient is a very pleasant 52-year-old diabetic female with hypertension, hypercholesterolemia, former patient of Dr. Beltran who performed a left heart catheterization on 03/03/2020 with the following results: CONCLUSIONS: 1. Essentially normal coronary arteriograms. 2. Noncardiac chest pain. [1] Subsequent of that she underwent a 2D echo with Doppler on 06/07/2021 with the following results: (06/07/2021 14:15 EDT Echo Transthoracic Complete) SUMMARY/CONCLUSION: 1. Normal left ventricle and right ventricle. 2. Borderline impaired diastolic relaxation. 3. No significant valve disease. 4. Normal estimated pulmonary artery pressure. [2] In addition she underwent a 14-day Holter on 06/01/2021 with the following results: CONCLUSIONS: Essentially normal 14 day event monitor with subjective symptoms of skipped beats, chest pain, shortness of breath and light-headedness all of which corresponded to either normal sinus rhythm or sinus tachycardia. There was an autotrigger of sinus bradycardia while the patient was asleep on 05/21/2021 at 02:07:33. There was also autotrigger on 05/21/2021 which showed sinus rhythm with ventricular bigeminy but no symptoms were reported. Recommend clinical correlation or alternative mode of testing to further evaluate patient's symptoms. The patient tolerated the procedure well. No complications. [3] Patient is now here in follow-up. She now requires surgery on her feet for hammertoe and neuroma as she never had it since her last visit. She denies any chest pain, angina, shortness of breath and has very rare palpitations. They appear to be well controlled with beta-laz therapy. She denies any chest pain, angina, or shortness of breath but did have some palpitations which were self terminating. She had no other associated symptoms. She is compliant with her medications and has quit smoking 2 weeks ago. In our office today her blood pressure is 125/85 and pulse of 65 and regular. Physical exam is as below. EKG dated 10/30/2022 shows normal sinus rhythm with nonspecific ST and T wave changes. EKG dated 05/16/2023 shows normal sinus rhythm, anterior ST and T wave changes, no previous myocardial infarction. Review of Systems Constitutional: no fever, no chills, no weakness, no fatigue Respiratory: no shortness of breath, no cough, no orthopnea, no wheezing Cardiovascular: no chest pain, no palpitations, no edema Neuro: no dizziness no light headed no syncope Additional ROS info: Except as noted in the above Review of Systems and in the History of Present Illness all other systems have been reviewed and are negative or noncontributory. Physical Exam General: alert, no acute distress Neck: Supple, noJVD nocarotid bruit Cardiovascular: regular rate and rhythm, no murmur normal peripheral perfusion Respiratory: Lungs CTA, respirations non labored Extremities: no edema Neurological: oriented x 4, LOC appropriate for age, sensation equal & normal bilaterally, speech normal Skin: Warm, dry, intact- no rash or concerning lesions Assessment/Plan 1. Preoperative restratification: The patient is maximized on her Coreg, but she did have some mild palpitations which were self terminating. She has had an extensive cardiac work-up and no additional testing needed at this time. The patient is at low risk for noncardiac foot surgery and may proceed as scheduled. Recommend continuing her Lasix and Coreg to maintain her blood pressure. 2. Return to office in [address] Solis. Follow-up No qualifying data available Problem List/Past Medical History Ongoing Anxiety BMI 30.0-30.9,adult Change in bowel habits Colon polyp Depression Dysuria Esophageal spasm Family history of colorectal cancer Feeling of incomplete bladder emptying Flank pain Foreign body in stomach, sequela Gastric bezoar Gastric erosions GERD (gastroesophageal reflux disease) Hemorrhoids History of kidney stones Incomplete emptying of bladder Irritable bowel syndrome with diarrhea Loose stools Menopause Mixed incontinence urge and stress Nausea and vomiting Nocturia Osteoporosis Other urethral stricture, female Pinched nerve in neck Screen for colon cancer Smoker Stress incontinence Tertiary contraction of esophagus Urge incontinence Urinary frequency Vomiting Historical ADHD (attention deficit hyperactivity disorder) Agoraphobia Anxiety Benign hypertension Bipolar Common migraine Depression Diabetes mellitus type 2 Dysphagia Fibromyalgia Generalised osteoarthritis Heart attack Hypercholesterolaemia Neuropathy, peripheral OCD (obsessive compulsive disorder) CELINE - Obstructive sleep apnea Post traumatic stress disorder (PTSD) Procedure/Surgical History Colonoscopy (01/17/2023), Hammer toe (11/21/2022), Metatarsal (11/21/2022), Esophagogastroduodenosco py (03/29/2022), Peroneal tendon (11/08/2021), Esophagogastroduodenosco py ( (more content not included)... Normal [facility] Comment on above: Result Comment: Elec tronically Signed By: WILL WALSH, Elliott Grewal\.br\Date and Time Signed: 05/16/23 10:46 EDT Physician Orderon 05-16-2023 Physician Order [id number] :127 Normal [facility] CT lung screeningon 04-03-20 CT lung screening [facility] [place] [address] [place] [address] CT Scan Report Signed Patient: Keturah Herrera MR#: [id number] : 1970 Acct:[id number] Age/Sex: 52 / F ADM Date: 04/03/23 Loc: [facility] Room: Type: [facility] Attending Dr: CARRILLO Boyd APRN Copies to: Valarie Herrera APRN, ACNP-BC Ordering Provider: Valarie Herrera APRN, ACNP-BC Date of Service: 04/03/23 CT/CT lung screening: G02.97 LOW-DOSE SCREENING CHEST CT WITHOUT CONTRAST COMPARISON: None CLINICAL DATA: History of tobacco use. Spiral axial unenhanced low-dose images were obtained through the chest. Images were reviewed using both narrow and wide window settings. This CT exam was performed using one or more following dose reduction techniques: Automated exposure control, adjustment of the mA and/or kV according to patient size, or use of iterative reconstruction technique. The heart is within normal limits for size. No pericardial effusion is identified. There is minimal coronary artery calcification. No aortic aneurysm is identified. There are prevascular and paratracheal lymph nodes with short axis dimension up to 1 cm. There are tiny endplate spurs. There are airspace lucencies and subpleural blebs. There is minor atelectasis or scarring. There is no focal consolidation or pleural effusion. No pulmonary nodularity is identified. There are no contributory findings at the upper imaged lungs within limits of technique. CT/CT lung screening IMPRESSION: OBSTRUCTIVE LUNG DISEASE. MINOR ATELECTASIS OR SCARRING. NO PULMONARY NODULARITY. NONSPECIFIC MEDIASTINAL LYMPH NODES. Lung RADS category 1 - negative Twelve-month low-dose CT follow-up suggested Impression dictated by: Allison Castaneda M.D.04/03/2023 2:31 PM Dictation Location: [place] [address] Transcribed By: [facility] 04/03/23 1431 Dictated By: Allison Castaneda MD 04/03/23 1423 Signed By: 04/03/23 1431 [facility] Reminderson 01-30-2023 Reminders - From: Inesas Grajeda CNP To: Shalonda Singh; Sent: 01/29/2023 12:17:11 EDT Show up: 01/29/2023 12:18:00 EDT Subject: Ambulatory Reminder Reminder/Recall Colonoscopy in 2027. 01/18/[address] cramer From: Shalonda Singh To: [facility] - Reminders/Recalls; Sent: 01/30/2023 09:24:18 EDT ! Show up: 12/18/2027 09:24:00 EDT Due Date/Time: 01/18/2028 09:24:00 EDT [facility] Ambulatory Visit Summaryon 0 01-29-2023 Ambulatory Visit Summary KETURAH HERRERA :1970 Visit Date:01/29/2023 Ambulatory Visit Instructions Your Diagnosis Colon polyp Hemorrhoids Loose stools Nausea and vomiting GERD (gastroesophageal reflux disease) Family history of colorectal cancer Your Care Team Attending Physician - Nicci RABBET OPERATOR, Inessa A Primary Care Physician - ROBERT GIRON DO This Is Your Medications List Contact prescribing physician if questions or concerns Oxygen (Oxygen - for Home) albuterol (Ventolin HFA 90 mcg/inh Aerosol) alprazolam (Xanax) aripiprazole (Abilify) atorvastatin (Lipitor 40 mg Tab) benztropine (benztropine 0.5 mg oral tablet) calcium-vitamin D (Calcium 600+D) carvedilol (carvedilol 25 mg Tab) cetirizine (Zyrtec) ergocalciferol (Vitamin D 50,000 intl units (1.25 mg) oral capsule) fremanezumab (Ajovy Autoinjector 225 mg/1.5 mL subcutaneous solution) furosemide (Lasix) hydrOXYzine loperamide (Imodium A-D 2 mg oral tablet) meclizine montelukast (montelukast 10 mg Tab) naratriptan (naratriptan 2.5 mg Tab) nortriptyline (nortriptyline 25 mg Cap) pilocarpine (pilocarpine 5 mg Tab) pramipexole (Mirapex 0.5 mg) rimegepant (Nurtec ODT) solifenacin (Vesicare 10 mg Tab) thiamine (Vitamin B1 100 mg Tab) Procedures Performed Colonoscopy (01/17/2023), Hammer toe (11/21/2022), Metatarsal (11/21/2022), Esophagogastroduodenosco py (03/29/2022), Peroneal tendon (11/08/2021), Esophagogastroduodenosco py (06/26/2021), Urodynamics (05/16/2021), Colonoscopy (03/14/2020), Catheterization of left heart (03/03/2020), Excision of Downey's neuroma (10/22/2018), Removal of toenail (10/22/2018), Tarsal tunnel release (05/07/2018), Right tarsal tunnel release (02/15/2016), Left instep plantar fasciotomy with division of soft tissue & fascia & muscle. (08/17/2015), right instep plantar fasciotomy with division of muscle and fascia (06/22/2015), Appendectomy, Arthroscopy of knee, Breast surgery, Carpal tunnel release, Cholecystectomy, Colonoscopy, Colonoscopy, Esophagogastroduodenosco py, Esophagogastroduodenosco py, ESWL of kidney, Excision of ganglion cyst, Hysterectomy, ingrown toenail removal, Lithotripsy, Mortons neuroma, salpingectomy with unilateral oophorectomy, Sinus, Suspension of bladder, Tarsal tunnel, Tubal ligation, Ulnar nerve at elbow, Ulnar nerve decompression. Discharge Vitals Temperature (Temporal Artery) 36.4 ?C Heart Rate (Peripheral) 64 Blood Pressure 115/79 Height 163 cm Height 64 in Weight 76.2 kg Weight 167.64 lb BMI 28.68 What to do next You Need to Schedule the Following Appointments Follow Up with Inessa Grajeda CNP When: Within 3 months Where: You Need to Complete the Following Clostridium Difficile PCR, Stool, Routine collect, 01/29/23, Order for future visit, Nurse collect, Loose stools, Print Label By Order Location Enteric Panel by PCR, Stool, Routine collect, 01/29/23, Order for future visit, Nurse collect, Loose stools, Print Label By Order Location Fecal WBC Lactoferrin, Stool, Routine collect, 01/29/23, Order for future visit, Nurse collect, Loose stools, Print Label By Order Location Giardia lamblia, Direct Detection EIA, Stool, Routine collect, 01/29/23, Order for future visit, Nurse collect, Loose stools, Print Label By Order Location O & P Exam, Routine, Stool, Routine collect, 01/29/23, Order for future visit, Nurse collect, Loose stools, Print Label By Order Location Pancreatic Elastase, Fecal, Stool, Routine collect, 01/29/23, Order for future visit, Nurse collect, Loose stools, Print Label By Order Location Medications What How Much When Instructions Unchanged albuterol (Ventolin HFA 90 mcg/ inh Aerosol) 2 Puffs Inhalation 4 times a day as needed for Shortness of breath or wheezing Contact prescribing physician if questions or concerns Unchanged alprazolam (Xanax) 0.5 Milligram By Mouth 3 times a day Contact prescribing physician if questions or concerns Unchanged aripiprazole (Abilify) 15 Milligram By Mouth Every day Contact prescribing physician if questions or concerns Unchanged atorvastatin (Lipitor 40 mg Tab) 2 Tablets By Mouth At bedtime Contact prescribing physician if questions or concerns Unchanged benztropine (benztropine 0.5 mg oral tablet) 1 Tablets By Mouth Every day Contact prescribing physician if questions or concerns Unchanged calcium-vitamin D (Calcium 600+D) 600 / 400 mg By Mouth Every day Contact prescribing physician if questions or concerns Unchanged carvedilol (carvedilol 25 mg Tab) 1 Tablets By Mouth 2 times a day Duration: 90 Days Contact prescribing physician if questions or concerns Unchanged cetirizine (Zyrtec) 10 Milligram By Mouth Every day Contact prescribing physician if questions or concerns Unchanged ergocalciferol (Vitamin D 50,000 intl units (1.25 mg) oral capsule) 1 Capsules By Mouth Saturday Contact prescribing physician if questions or concerns Unchanged fremanezumab (Ajovy Autoinjector 225 m (more content not included)... Normal [facility] Gastroenterology Office/Clin ic Noteon 01-29-2023 Gastroenterology Office/Clinic Note Chief Complaint Colonoscopy results. HPI Staff Patient is a 52 year old female here today to review colonoscopy results. History of Present Illness Patient is a 52-year-old female who presents for follow-up. Patient was previously evaluated 10/2022 and has PMH of HLD, DM, type 2- managed by patient's PCP. Patient had previous stool testing 10/2022 that was negative for infectious process. Patient was also previously evaluated in the ED 10/2022 for flank pain and treated for UTI. Patient reported during visit with me 10/2022 that her loose stools had improved for a few days and then returned 1 week prior. She indicated she sometimes follows low fiber/low fat diet. Patient reported having nausea and vomiting after eating off-and-on over the last year. She reported acid reflux nearly every day and evening. Was taking pantoprazole 40 mg daily. Had added Pepcid 20 mg at bedtime to patient's regimen during appointment 10/2022. Previous EGD with dilation 03/2022 revealed esophageal contraction, normal gastric mucosa, esophagus dilated during EGD, normal gastric mucosa, small gastric bezoar, normal duodenum. Patient was advised to minimize the sedatives and narcotics, to chew food well and to be on the residual diet. Note also indicated that if patient's difficulty swallowing persisted to repeat EGD with Botox injection. Patient was previously scheduled to have colonoscopy 12/2021 however note indicated patient had canceled or no showed. Previous colonoscopy 02/2020 revealed lipoma in cecum, hemorrhoids. Patient previously reported having to push to have a BM and was having watery/loose diarrhea over the last 2 weeks prior. Patient was ordered CBC/CMP. Labs completed 10/2022 revealed elevated WBC of 12.1, normal H&H, normal BUN, normal creatinine. Labs I had ordered were not completed. Patient also with history of cholecystectomy in 2021 and had previously reported she was unable to tolerate Questran. She also indicated she did not always follow a low-fat/low fiber diet. Patient had a repeat EGD 08/2022 that revealed normal esophagus, mild antral erosions, normal duodenum, stomach biopsy revealed mild to moderate chronic gastritis and erosion, negative for intestinal metaplasia, negative for H. pylori. Patient had previous ultrasound of abdomen 10/2022 that revealed no acute abnormality. Colonoscopy completed 08/2022 revealed was aborted related to poor prep and was to have repeat colonoscopy with 2-day prep in less than 3 months?not done. Patient had colonoscopy with Dr. Cramer 01/17/2023 that revealed hemorrhoids, polyp removed from ascending colon that pathology revealed was tubular adenoma. Patient is due for repeat colonoscopy in 5 years?2027. Patient with family history of colorectal cancer?patient's maternal aunt. Previous gastric emptying study 06/2021 that was normal. During today's visit, patient reports she is feeling better. She reports after colonoscopy, she was unable to have a BM for 1 week with some BRBPR with wiping and then was able to have a BM after colonoscopy 1 week after. Explains stools were hard in consistency for a few days. She explains she is currently having 3-4 loose BMs daily. Denies having any further blood with wiping. Patient reports she has never been tested for pancreatic insufficiency. She explains over the last 2 days, stool is green in color. She reports acid reflux is well-controlled with pantoprazole 40mg daily and pepcid 20mg at bedtime. Explains nausea/vomiting has improved and is occurring less often, occurs when she drinks milk, 2-3 times a week. Also, has loose stools with milk. Denies black/bloody stools, fevers/chills, and denies having any other GI complaints. Review of Systems ROS - Provider Constitutional: no fever, no chills. Skin: no Jaundice. ENMT: Denies dysphagia and heartburn. Respiratory: no shortness of breath. Cardiovascular: no chest pain. Gastrointestinal: yes nausea, yes vomiting, yes loose stools. Physical Exam Vitals & Measurements T: 36.4 ?C(Temporal Artery) HR: 64(Peripheral) BP: 115/79 HT: 64 in HT: 163 cm WT: 76.2 kg WT: 167.64 lb BMI: 28.68 General: Well developed, well nourished, in no acute distress Head: Normocephalic/atraumatic Lungs: Normal respiratory effort and clear to auscultation Cardio: Regular rate and rhythm, normal S1 and S2, no murmur, no rub Abdomen: Soft, non-distended, non-tender. Normoactive bowel sounds present in all 4 abdominal quadrants, bilaterally. Mental Status: Alert and oriented x3. Normal mood and affect Assessment/Plan 1. Colon polyp (K63.5: Polyp of colon) Colonoscopy 01/17/2023 that revealed hemorrhoids, polyp removed from ascending colon that pathology revealed was tubular adenoma. Patient is due for repeat colonoscopy in 5 years?2027. 2. Hemorrhoids (K64.9: Unspecified hemorrhoids) Colonoscopy 01/17/2023 that revealed hemorrhoids, polyp removed from ascending colon that pathology revealed was tubular adenoma. Patient is due for repeat colonoscopy in 5 (more content not included)... Normal [facility] Comment on above: Result Comment: Elec tronically Signed By: Nicci IZAGUIRRE, Inessa Jerome\.br\Date and Time Signed: 01/29/23 12:21 EDT Patient Educationon 01-30-20 23 Patient Education High-Fiber Diet Fiber, also called dietary fiber, is a type of carbohydrate that is found in fruits, vegetables, whole grains, and beans. A high-fiber diet can have many health benefits. Your health care provider may recommend a high-fiber diet to help: ? Prevent constipation. Fiber can make your bowel movements more regular. ? Lower your cholesterol. ? Relieve the following conditions: ? Swelling of veins in the anus (hemorrhoids). ? Swelling and irritation (inflammation) of specific areas of the digestive tract (uncomplicated diverticulosis). ? A problem of the large intestine (colon) that sometimes causes pain and diarrhea (irritable bowel syndrome, IBS). ? Prevent overeating as part of a weight-loss plan. ? Prevent heart disease, type 2 diabetes, and certain cancers. What is my plan? The recommended daily fiber intake in grams (g) includes: ? 38 g for men age 50 or younger. ? 30 g for men over age 50. ? 25 g for women age 50 or younger. ? 21 g for women over age 50. You can get the recommended daily intake of dietary fiber by: ? Eating a variety of fruits, vegetables, grains, and beans. ? Taking a fiber supplement, if it is not possible to get enough fiber through your diet. What do I need to know about a high-fiber diet? ? It is better to get fiber through food sources rather than from fiber supplements. There is not a lot of research about how effective supplements are. ? Always check the fiber content on the nutrition facts label of any prepackaged food. Look for foods that contain 5 g of fiber or more per serving. ? Talk with a diet and director of food and nutrition services (dietitian) if you have questions about specific foods that are recommended or not recommended for your medical condition, especially if those foods are not listed below. ? Gradually increase how much fiber you consume. If you increase your intake of dietary fiber too quickly, you may have bloating, cramping, or gas. ? Drink plenty of water. Water helps you to digest fiber. What are tips for following this plan? ? Eat a wide variety of high-fiber foods. ? Make sure that half of the grains that you eat each day are whole grains. ? Eat breads and cereals that are made with whole-grain flour instead of refined flour or white flour. ? Eat brown rice, bulgur wheat, or millet instead of white rice. ? Start the day with a breakfast that is high in fiber, such as a cereal that contains 5 g of fiber or more per serving. ? Use beans in place of meat in soups, salads, and pasta dishes. ? Eat high-fiber snacks, such as berries, raw vegetables, nuts, and popcorn. ? Choose whole fruits and vegetables instead of processed forms like juice or sauce. What foods can I eat? Fruits Berries. Pears. Apples. Oranges. Avocado. Prunes and raisins. Dried figs. Vegetables Sweet potatoes. Spinach. Kale. Artichokes. Cabbage. Broccoli. Cauliflower. Green peas. Carrots. Squash. Grains Whole-grain breads. Multigrain cereal. Oats and oatmeal. Brown rice. Barley. Bulgur wheat. Millet. Quinoa. Bran muffins. Popcorn. [place] wafer crackers. Meats and other proteins [place], kidney, and georges beans. Soybeans. Split peas. Lentils. Nuts and seeds. Dairy Fiber-fortified yogurt. Beverages Fiber-fortified soy milk. Fiber-fortified orange juice. Other foods Fiber bars. The items listed above may not be a complete list of recommended foods and beverages. Contact a dietitian for more options. What foods are not recommended? Fruits Fruit juice. Cooked, strained fruit. Vegetables Fried potatoes. Canned vegetables. Well-cooked vegetables. Grains White bread. Pasta made with refined flour. White rice. Meats and other proteins Fatty cuts of meat. Fried chicken or fried fish. Dairy Milk. Yogurt. Cream cheese. Sour cream. Fats and oils [place]. Beverages Soft drinks. Other foods Cakes and pastries. The items listed above may not be a complete list of foods and beverages to avoid. Contact a dietitian for more information. Summary ? Fiber is a type of carbohydrate. It is found in fruits, vegetables, whole grains, and beans. ? There are many health benefits of eating a high-fiber diet, such as preventing constipation, lowering blood cholesterol, helping with weight loss, and reducing your risk of heart disease, diabetes, and certain cancers. ? Gradually increase your intake of fiber. Increasing too fast can result in cramping, bloating, and gas. Drink plenty of water while you increase your fiber. ? The best sources of fiber include whole fruits and vegetables, whole grains, nuts, seeds, and beans. This information is not intended to replace advice given to you by your health care provider. Make sure you discuss any questions you have with your health care provider. Document Released: 08/05/2006 Document Revised: 06/09/2018 Document Reviewed: 06/09/2018 [employer] Patient Education ? 2020 [employer]. Gastroenterology H (more content not included)... Normal [facility] Postoperative Documentson Postoperative Documents [id number] :127 [facility] [place] 01-21-2023 Consent [id number]: 127 [facility] Discharge Instructionson Discharge Instructions [id number]: 127 [facility] IntraOperative Documentson 0 01-21-2023 IntraOperative Documents [id number]: 127 [facility] Progress Note-Physicianon Progress Note-Physician Patient: KETURAH HERRERA Age: 52 years Sex: Female : 1970 Associated Diagnoses: None Author: MD Nichole, Patrick Keller Postoperative Information Postoperative disposition: Postoperative disposition: To PACU. Optimetrix number: Optimetrix number [id number]. Anesthetic utilized: General. Health Status Allergies: Allergic Reactions (Selected) Moderate Neurontin- Unknown. Severity Not Documented Advair HFA- Rash. Amitriptyline- Vomiting. Amoxicillin- Hives. Augmentin- Vomiting. Avelox- Rash. Bactrim DS- Vomiting. Calan- Vomiting and palpitations. Codeine- Rash. Cymbalta- Unknown. Decadron- Hot flashes. Depakote- Alopecia. Dexamethasone- Hot flashes. Doxycycline- Palpitations. Fluticasone- Unknown. Geodon- Palpitations. Ibuprofen- Rash. Lyrica- Unknown. Macrobid- Unknown. Methadone- Vomiting. Mobic- Unknown. Paxil- Unknown. Penicillins- Unknown. Pregabalin- Palpitations. Requip- Altered mental status. Robaxin- Unknown. Savella- Unknown. Shellfish- Rash. Strattera- Palpitations. Tape- Rash. Topamax- Vomiting. Toradol- Unknown. Trileptal- Unknown. Wellbutrin- Palpitations. Ziprasidone- Unknown. Physical Examination VS/Measurements Pain Assessment: Controlled. General: Awake, Alert, Appropriate. Respiratory: Adequate air exchange. Cardiovascular: Stable, Normal peripheral perfusion. Neurological: Normal sensory function, Normal motor function. Assessment Anesthetic outcome No anesthetic complications noted. Adequate pain relief. able to void without difficulty, able to ambulate with assist, tolerating PO intake, no N/V. Review / Management Condition: Stable. Plan Transfer/Discharge: Transfer/Discharge Discharge when meets criteria ( To home ). Normal [facility] Comment on above: Result Comment: Elec tronically Signed By: MD Varela Ahmad F\.br\Date and Time Signed: 01/18/23 14:09 EDT Progress Note-Physician Patient: KETURAH HERRERA Age: 52 years Sex: Female : 1970 Associated Diagnoses: None Author: MD Varela Ahmad F Preoperative Information Time patient last ate or drank:=== (npo 8 hours) Anesthesia history: Patient history: No prior anesthesia problems. Re-evaluation prior to induction: Completed, Initial evaluation reviewed. Review of Systems Respiratory: No shortness of breath. Cardiovascular: No chest pain. Hematology/Lymphatics: No bruising tendency, No bleeding tendency. Health Status Allergies: Allergic Reactions (All) Moderate Neurontin- Unknown. Severity Not Documented Advair HFA- Rash. Amitriptyline- Vomiting. Amoxicillin- Hives. Augmentin- Vomiting. Avelox- Rash. Bactrim DS- Vomiting. Calan- Vomiting and palpitations. Codeine- Rash. Cymbalta- Unknown. Decadron- Hot flashes. Depakote- Alopecia. Dexamethasone- Hot flashes. Doxycycline- Palpitations. Fluticasone- Unknown. Geodon- Palpitations. Ibuprofen- Rash. Lyrica- Unknown. Macrobid- Unknown. Methadone- Vomiting. Mobic- Unknown. Paxil- Unknown. Penicillins- Unknown. Pregabalin- Palpitations. Requip- Altered mental status. Robaxin- Unknown. Savella- Unknown. Shellfish- Rash. Strattera- Palpitations. Tape- Rash. Topamax- Vomiting. Toradol- Unknown. Trileptal- Unknown. Wellbutrin- Palpitations. Ziprasidone- Unknown. Canceled/Inactive Reactions (All) Severity Not Documented Fish- Hives. Vicodin- Unknown. Current medications: (Selected) Prescriptions Prescribed Imodium A-D 2 mg oral tablet: See Instructions, PRN Diarrhea, 2 mg Oral BID and 2mg after each loose stool, # 120 tab(s), Refills(s) 6, Pharmacy: [facility], 162, cm, 03/30/20 10:05:00 EDT, Height/Length Dosing, 74.2, kg, 03/30/20 10:05:00 EDT, Weight Dosing Pepcid 20 mg Tab: 20 mg = 1 tab(s), Oral, Once a day (at bedtime), X 90 day(s), # 90 tab(s), Refills(s) 0, Pharmacy: [facility], 163, cm, 10/29/22 14:56:00 EDT, Height/Length Dosing, 77.3, kg, 10/29/22 14:56:00 EDT, Weight Dosing Vesicare 10 mg Tab: 10 mg = 1 tab(s), Oral, Daily, # 30 tab(s), Refills(s) 5, Pharmacy: [facility], 163, cm, 04/09/22 14:41:00 EDT, Height/Length Dosing, 80, kg, 04/09/22 14:41:00 EDT, Weight Dosing carvedilol 25 mg Tab: 25 mg = 1 tab(s), Oral, BID, X 90 day(s), # 180 tab(s), Refills(s) 3, Pharmacy: [facility], 162, cm, 05/15/22 13:20:00 EDT, Height/Length Dosing, 79, kg, 05/15/22 13:20:00 EDT, Weight Dosing Documented Medications Documented Abilify: 15 mg, Oral, Daily Ajovy Autoinjector 225 mg/1.5 mL subcutaneous solution: 225 mg, SubCutaneous, qMonth, Refills(s) 0, Migraine headache Calcium 600+D: 600 / 400 mg, Oral, Daily, Refill(s) 0, Prophylaxis Lasix: 20 mg, Oral, Daily, Refills(s) 0, diuretic/water pill Lipitor 40 mg Tab: 80 mg = 2 tab(s), Oral, Bedtime, Refills(s) 0, High cholesterol Mirapex 0.5 m.5 mg, Oral, TID, Refills(s) 0, Other (see comment) Nurtec ODT: 75 mg, Oral, q24hr, PRN as needed for migraine headache, Refills(s) 0 Oxygen - for Home: 3 L/min, Nasal Cannula, Daily, Refill(s) 0, Oxygen - Continuous or Nocturnal Diagnosis: Portable 02 for physician visits, oxygen conservation Ventolin HFA 90 mcg/inh Aerosol: 2 puff(s), Inhalation, QID Shortness of breath or wheezing, Refill(s) 0, COPD Vitamin B1 100 mg Tab: 100 mg = 1 tab(s), Oral, Daily, Refills(s) 0, Prophylaxis Vitamin D 50,000 intl units (1.25 mg) oral capsule: 50,000 International_Unit = 1 cap(s), Oral, Saturday, Refills(s) 0, Prophylaxis Xanax: 0.5 mg, Oral, TID, Anxiety Zyrtec: 10 mg, Oral, Daily, Refills(s) 0, Allergy symptoms benztropine 0.5 mg oral tablet: 0.5 mg = 1 tab(s), Oral, Daily, Refills(s) 0, Other (see comment) hydrOXYzine: 50 mg, Oral, QID, Refills(s) 0, Anxiety meclizine: 25 mg, Oral, QID, PRN Dizziness montelukast 10 mg Tab: 10 mg = 1 tab(s), Oral, Daily, Refills(s) 0, Asthma naratriptan 2.5 mg Tab: 2.5 mg = 1 tab(s), Oral, As Directed, PRN Migraine headache, # 9 tab(s), Refills(s) 0 nortriptyline 25 mg Cap: TAKE ONE CAPSULE BY MOUTH IN THE MORNING AND TAKE THREE CAPSULES AT BEDTIME pilocarpine 5 mg Tab: TAKE 1 TABLET BY MOUTH THREE TIMES DAILY., Unable to State Problem list: All Problems Anxiety / SNOMED CT 47448141 / Confirmed Bipolar disorder / SNOMED CT 11682505 / Confirmed BMI 30.0-30.9,adult / SNOMED CT 715462357 / Confirmed Change in bowel habits / SNOMED CT 178847738 / Confirmed Chronic migraine / SNOMED CT 35979154 / Confirmed Chronic pain / SNOMED CT 270461924 / Confirmed COPD (chronic obstructive pulmonary disease) / SNOMED CT 37859607 / Confirmed Depression / SNOMED CT 74479542 / Confirmed Diabetes / SNOMED CT 161889782 / Confirmed Dizziness / SNOMED CT 2654714955 / Confirmed Dysuria / SNOMED CT 65118080 / Confirmed Esophageal spasm / SNOMED CT 303393320 / Confirmed Family history of colorectal cancer / SNOMED CT 5417822498 (more content not included)... Normal [facility] Comment on above: Result Comment: Elec tronically Signed By: MD Nichole, Patrick Keller\.br\Date and Time Signed: 01/18/23 14:08 EDT Consent for Treatmenton Consent for Treatment [id number]: 127 Normal [facility] Discharge Instructionson Discharge Instructions KETURAH HERRERA :1970 Visit Date:01/17/2023 Inpatient Discharge Instructions Your Care Team Admitting Physician - Zulema CRAMER MD Referring Physician - Zulema CRAMER MD Reason for Your Visit LOOSE STOOL, FAMILY HX OF COLON CANCER Your Diagnosis Family history of colon cancer Tests Performed Pathology Tissue Exam -- Results Pending -- Please visit your patient portal for your results or contact your primary care physician. This Is Your Medications List Oxygen (Oxygen - for Home) albuterol (Ventolin HFA 90 mcg/inh Aerosol) alprazolam (Xanax) aripiprazole (Abilify) atorvastatin (Lipitor 40 mg Tab) benztropine (benztropine 0.5 mg oral tablet) calcium-vitamin D (Calcium 600+D) carvedilol (carvedilol 25 mg Tab) cetirizine (Zyrtec) ergocalciferol (Vitamin D 50,000 intl units (1.25 mg) oral capsule) famotidine (Pepcid 20 mg Tab) fremanezumab (Ajovy Autoinjector 225 mg/1.5 mL subcutaneous solution) furosemide (Lasix) hydrOXYzine loperamide (Imodium A-D 2 mg oral tablet) meclizine montelukast (montelukast 10 mg Tab) naratriptan (naratriptan 2.5 mg Tab) nortriptyline (nortriptyline 25 mg Cap) pilocarpine (pilocarpine 5 mg Tab) pramipexole (Mirapex 0.5 mg) rimegepant (Nurtec ODT) solifenacin (Vesicare 10 mg Tab) thiamine (Vitamin B1 100 mg Tab) Procedure History Hammer toe (11/21/2022), Metatarsal (11/21/2022), Esophagogastroduodenosco py (03/29/2022), Peroneal tendon (11/08/2021), Esophagogastroduodenosco py (06/26/2021), Urodynamics (05/16/2021), Colonoscopy (03/14/2020), Catheterization of left heart (03/03/2020), Excision of Downey's neuroma (10/22/2018), Removal of toenail (10/22/2018), Tarsal tunnel release (05/07/2018), Right tarsal tunnel release (02/15/2016), Left instep plantar fasciotomy with division of soft tissue & fascia & muscle. (08/17/2015), right instep plantar fasciotomy with division of muscle and fascia (06/22/2015), Appendectomy, Arthroscopy of knee, Breast surgery, Carpal tunnel release, Cholecystectomy, Colonoscopy, Colonoscopy, Esophagogastroduodenosco py, Esophagogastroduodenosco py, ESWL of kidney, Excision of ganglion cyst, Hysterectomy, ingrown toenail removal, Lithotripsy, Mortons neuroma, salpingectomy with unilateral oophorectomy, Sinus, Suspension of bladder, Tarsal tunnel, Tubal ligation, Ulnar nerve at elbow, Ulnar nerve decompression. Discharge Vitals Temperature (Temporal Artery) 36.7 ?C Heart Rate (Monitored) 79 Respiratory Rate 20 Blood Pressure 138/74 Height 163 cm Weight 77.3 kg BMI 29.09 What to do next Instructions From Your Doctor Event Name Event Result Discharge Activity Resume normal activities in 24 hours Discharge Restrictions No driving for 24 hrs, Do not operate machinery or tools, Do not make important decisions for 24 hours Discharge Diet(s) Regular Pharmacy Information [facility] Discharge Instructions Discharge Instructions Previously Scheduled Follow-Up Appointments Saturday 1:20 PM EDT With: SHERI JIMENES PA-C Where: [facility] Normal [address] [place] [address] [place] [address]- \.br\ New Follow Up Appointments after Discharge\.br\ Follow Up with BELA WALSH, DHAVAL Poole, MED When: \.br\ Comments:\.br\ Office will call to schedule follow up appointment\.br\ Where:\.br\ [address]\.br\ [place] [address]\.br\ \.br\ Medications\.br\ What How Much When Why Instructions Next Dose\.br\ Unchanged albuterol (Ventolin HFA 90 mcg/ inh Aerosol) 2 Puffs Inhalation 4 times a day as needed for Shortness of breath or wheezing\.br\ Unchanged alprazolam (Xanax) 0.5 Milligram By Mouth 3 times a day\.br\ Unchanged aripiprazole (Abilify) 15 Milligram By Mouth Every day\.br\ Unchanged atorvastatin (Lipitor 40 mg Tab) 2 Tablets By Mouth At bedtime\.br\ Unchanged benztropine (benztropine 0.5 mg oral tablet) 1 Tablets By Mouth Every day\.br\ Unchanged calcium-vitamin D (Calcium 600+D) 600 / 400 mg By Mouth Every day\.br\ Unchanged carvedilol (carvedilol 25 mg Tab) 1 Tablets By Mouth 2 times a day Duration: 90 Days\.br\ Unchanged cetirizine (Zyrtec) 10 Milligram By Mouth Every day\.br\ Unchanged ergocalciferol (Vitamin D 50,000 intl units (1.25 mg) oral capsule) 1 Capsules By Mouth Saturday\.br\ Unchanged famotidine (Pepcid 20 mg Tab) 1 Tablets By Mouth Once a day (at bedtime) GERD (gastroesophagea l reflux disease) Duration: 90 Days\.br\ Unchanged fremanezumab (Ajovy Autoinjector 225 mg/ 1.5 mL subcutaneous solution) 225 Milligram Subcutaneous Once a month\.br\ Unchanged furosemide (Lasix) 20 Milligram By Mouth Every day\.br\ Unchanged hydrOXYzine 50 Milligram By Mouth 4 times a day\.br\ Unchanged loperamide (Imodium A-D 2 mg oral tablet) See instructions 2 mg Oral BID and 2mg after each loose stool \.br\ Unchanged meclizine 25 Milligram By Mouth 4 times a day as needed for Dizziness\.br\ Unchanged montelukast (montelukast 10 mg Tab) 1 Tablets By Mouth Every day\.br\ Unchanged naratriptan (naratriptan 2.5 mg Tab) 1 Tablets By Mouth As Directed as needed for Migraine headache\.br\ Unchanged nortriptyline (nortriptyline 25 mg Cap) TAKE ONE CAPSULE BY MOUTH IN THE MORNING AND TAKE THREE CAPSULES AT BEDTIME \.br\ Unchanged Oxygen (Oxygen - for Home) 3 Liter/minute Nasal Cannula Every day Oxygen - Continuous or Nocturnal Diagnosis: Portable 02 for physician visits, oxygen conservation \.br\ Unchanged pilocarpine (pilocarpine 5 mg Tab) TAKE 1 TABLET BY MOUTH THREE TIMES DAILY. \.br\ Unchanged pramipexole (Mirapex 0.5 mg) 1.5 Milligram By Mouth 3 times a day\.br\ Unchanged rimegepant (Nurtec ODT) 75 Milligram By Mouth Every 24 hours as needed for as needed for migraine headache\.br\ Unchanged solifenacin (Vesicare 10 mg Tab) 1 Tablets By Mouth Every day\.br\ Unchanged thiamine (Vitamin B1 100 mg Tab) 1 Tablets By Mouth Every day\.br\ Test Results\.br\ No qualifying data available.\.br\ Allergies\.br\ Neurontin (Unknown)\.br\ Advair HFA (Rash)\.br\ Augmentin (Vomiting)\.br\ Avelox (Rash)\.br\ Bactrim DS (Vomiting)\.br\ Calan (Palpitations, Vomiting)\.br\ Cymbalta (Unknown)\.br\ Decadron (Hot flashes)\.br\ Depakote (Alopecia)\.br\ Geodon (Palpitations)\. br\ Lyrica (Unknown)\.br\ Macrobid (unknown)\.br\ Mobic (Unknown)\.br\ Paxil (Unknown)\.br\ Requip (Altered mental status)\.br\ Robaxin (Unknown)\.br\ Savella (Unknown)\.br\ Strattera (Palpitations)\. br\ Tape (Rash)\.br\ Topamax (Vomiting)\.br\ Toradol (Unknown)\.br\ Trileptal (Unknown)\.br\ Wellbutrin (Palpitations)\. br\ amitriptyline (Vomiting)\.br\ amoxicillin (Hives)\.br\ codeine (Rash)\.br\ dexamethasone (Hot flashes)\.br\ doxycycline (Palpitations)\. br\ fluticasone (Unknown)\.br\ ibuprofen (Rash)\.br\ methadone (Vomiting)\.br\ penicillins (Unknown)\.br\ pregabalin (Palpitations)\. br\ shellfish (Rash)\.br\ ziprasidone (Unknown)\.br\ Problems\.br\ Ongoing - Any problem that you are currently receiving treatment for.\.br\ Anxiety\.br\ BMI 30.0-30.9,adult\ .br\ Change in bowel habits\.br\ Depression\.br\ Dysuria\.br\ Esophageal spasm\.br\ Family history of colorectal cancer\.br\ Feeling of incomplete bladder emptying\.br\ Flank pain\.br\ Foreign body in stomach, sequela\.br\ Gastric bezoar\.br\ Gastric erosions\.br\ GERD (gastroesophagea l reflux disease)\.br\ History of kidney stones\.br\ Incomplete emptying of bladder\.br\ Irritable bowel syndrome with diarrhea\.br\ Loose stools\.br\ Menopause\.br\ Mixed incontinence urge and stress\.br\ Nausea and vomiting\.br\ Nocturia\.br\ Osteoporosis\.br \ Other urethral stricture, female\.br\ Pinched nerve in neck\.br\ Screen for colon cancer\.br\ Smoker\.br\ Stress incontinence\.br \ Tertiary contraction of esophagus\.br\ Urge incontinence\.br \ Urinary frequency\.br\ Vomiting\.br\ Historical - Any problem that you are no longer receiving treatment for.\.br\ ADHD (attention deficit hyperactivity disorder)\.br\ Agoraphobia\.br\ Anxiety\.br\ Benign hypertension\.br \ Bipolar\.br\ Common migraine\.br\ Depression\.br\ Diabetes mellitus type 2\.br\ Dysphagia\.br\ Fibromyalgia\.br \ Generalised osteoarthritis\. br\ Heart attack\.br\ Hypercholesterol aemia\.br\ Neuropathy, peripheral\.br\ OCD (obsessive compulsive disorder)\.br\ CELINE - Obstructive sleep apnea\.br\ Post traumatic stress disorder (PTSD)\.br\ Education Materials\.br\ \.br\ Colonoscopy\.br\ Care After Surgery\.br\ \.br\ Please read the instructions outlined below and refer to this sheet in the next few weeks. These discharge instructions provide you with general information on caring for yourself after you leave the hospital. Your doctor may also give you specific instructions. While your treatment has been planned according to the most current medical practices available, unavoidable complications occasionally occur. If you have any problems or questions after discharge, please call your doctor.\.br\ \.br\ ACTIVITY\.br\ You may resume your regular activity, but move at a slower pace for the next 24 hours.\.br\ Take frequent rest periods for the next 24 hours.\.br\ Walking will help get rid of the air and reduce the bloated feeling in your abdomen (belly).\.br\ No driving for 24 hours (because of the anesthesia (medicine) used during the test).\.br\ You may shower.\.br\ Do not sign any important legal documents or operate any machinery for 24 hours (because of the anesthesia used during the test).\.br\ \.br\ NUTRITION\.br\ Drink plenty of fluids.\.br\ You may resume your normal diet as instructed by your doctor.\.br\ Begin with a light meal and progress to your normal diet. Heavy or fried foods are harder to digest and may make you feel nauseated (sick to your stomach).\.br\ Avoid alcoholic beverages for 24 hours or as instructed.\.br\ \.br\ MEDICATIONS\.br\ You may resume your normal medications unless your doctor tells you otherwise.\.br\ \.br\ WHAT YOU CAN EXPECT TODAY\.br\ Some feelings of bloating in the abdomen.\.br\ Passage of more gas than usual.\.br\ Spotting of blood in your stool or on the toilet paper.\.br\ \.br\ FOLLOW-UP\.br\ Your doctor will discuss the results of your test with you.\.br\ \.br\ SEEK IMMEDIATE MEDICAL ATTENTION IF:\.br\ There is more than a spotting of blood in your stool.\.br\ There is abdominal distention (your abdomen is swollen).\.br\ There is vomiting.\.br\ You have a temperature over 101.5 F.\.br\ There is abdominal pain or discomfort that is severe or gets [facility] Comment on above: Result Comment: Elec tronically Signed By: LIZZETTE SOL RN\.br\Date and Time Signed: 01/17/23 09:46 EDT Endoscopic Procedure Report - Otheron 01-17-2023 Endoscopic Procedure Report - Other Patient: KETURAH HERRERA Age: 52 years Sex: Female : 1970 Associated Diagnoses: None Author: Zulema CRAMER MD Pre-Procedure Procedure Date 01/17/2023 09:38:00 . Procedure Type: Colonoscopy with removal of tumor(s), polyp(s), or other lesion(s) by cold snare technique. Procedure provider Performed by Zulema Cramer MD. Current history and physical Documented on chart. Colorectal neoplasm risk assessment Average risk. Informed Consent After discussing the rationale, risks and benefits, and alternatives to this procedure, the patient provided signed consent for the procedure. Pre-procedure diagnosis: Age 50 years or over. Medications Anticoagulant/antiplatel et None. ASA Classification: Class II. . Procedure The procedure was performed in the hospital. Rectal exam was performed and was normal with no masses palpated. The patient was positioned in the left lateral decubitus position and a digital rectal exam was performed.. Endoscope type used was an adult-size. The endoscope was lubricated then introduced through the anus. The scope was advanced to the cecum verified by photographing the appendiceal orifice, verified by photographing the ileocecal valve, verified by transillumination, The time to the cecum was 4 minutes, The withdrawal time was 6 minutes. No difficulties encountered during the procedure. The bowel preparation quality was adequate (see polyps greater than or equal to 6 millimeters). The patient tolerated the procedure well. Findings 1. Sessile polyp, 5 mm, in the ascending, removed completely with cold snare 2. Small nonbleeding internal hemorrhoids Images Procedure images: [id number]_ [id number]__[id number]_[id number]_ [id number]_ [id number]_hd_video_ [id number] . Post-Procedure Complications: none. Estimated blood loss: none. Specimens: sent to pathology. Devices/ implants: none left in place. Impression and Plan 1. Sessile polyp, 5 mm, in the ascending, removed completely with cold snare 2. Small nonbleeding internal hemorrhoids Recommendations: Repeat colonoscopy:: In 5 years, Pending pathology results. Follow-up:: Clinic follow-up in 1-2 weeks. Diet:: Resume previous diet. Medication resumption:: Continue current medications. Return to activities:: After 24 hours. Normal [facility] Comment on above: Result Comment: Elec tronically Signed By: BELA WALSH, Zulema\.br\Date and Time Signed: 01/17/23 09:42 EDT Other Comment: Elba augustin Attachment - attachment storage system not supported [id number] Can be viewed in source systemMissing Attachment - attachment storage system not supported [id number] Can be viewed in source systemMissing Attachment - attachment storage system not supported [id number] Can be viewed in source systemMissing Attachment - attachment storage system not supported [id number] Can be viewed in source systemMissing Attachment - attachment storage system not supported [id number] Can be viewed in source system Main OR Intraoperative Recor don 01-17-2023 Main OR Intraoperative Record IntraOp Document Type FT Summary Primary Physician: Zulema CRAMER MD Finalized Date/Time: 01/17/23 12:22:14 Pt. Name: KETURAH HERRERA /Sex: 1970 Female Med Rec #: [id number] Physician: Zulema CRAMER MD Financial #: [id number] Pt. 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 Varela supervising case Last Modified By: Efe RN, Andrés Wilks RN, Andrés Glez RN 01/17/23 09:38:42 01/17/23 09:38:42 01/17/23 09:38:42 Entry 4 Entry 5 Case Attendee Bhavin KITCHEN, Zulema Up MD Role Performed Staff - Other Surgeon - Primary Time In 01/17/23 09:28:00 01/17/23 09:23:00 Time Out 01/17/23 09:38:00 01/17/23 09:38:00 Procedure COLONOSCOPY(.) COLONOSCOPY(.) Comments Last Modified By: Andrés Wilks RN, RN, Morgan E 01/17/23 09:38:42 01/17/23 09:38:42 Perioperative Protocols FT Pre-Care Text: Implements protective measures prior to operative or invasive procedure, confirms identity before the operative or invasive procedure, verifies operative procedure, surgical site, and laterality Entry 1 Procedure(s) COLONOSCOPY(.) Patient Identity Birthday, ID Band Verified (select at Check, Patient least 2): Participation Consents / H and P Anesthesia Consent, Operative Site N/A Verified HandP, Surgery/Procedure Marking Verified Consent Surgical Site No Laterality Verified n/a Verified Procedure Verified Yes Correct Patient Yes Position Verified Availability Equipment, Medication Prep Dry n/a Verified (If Applicable) PreOp Antibiotic No Time Out Ye Porras CRNA, Given Participants Andrés Wilks RN, Sparks, Micala E, Zulema CRAMER MD Time Out Complete 01/17/23 09:25:00 Outcomes Met? Yes Last Modified By: Andrés Wilks RN 01/17/23 09:27:02 Post-Care Text: The patient is free from signs and symptoms of injury caused by extraneous objects Allergy Information FT Pre-Care Text: Verifies allergies Entry 1 Allergies Reviewed? Yes Allergies Reviewed Self/Patient With Outcomes Met? Yes Last Modified By: Andrés Wilks RN 01/17/23 09:26:40 Post-Care Text: The patient received appropriate medication(s) safely administered during the perioperative period Surgical Procedures FT Entry 1 Procedure Description Procedure COLONOSCOPY Modifiers . Surgeon Description Colonoscopy with ascending colon polyectomy Primary Procedure Yes Primary Surgeon Zulema CRAMER MD Start 01/17/23 09:26:00 Stop 01/17/23 09:36:00 Anesthesia Type General Surgical Service Gastroenterology Wound Class 2 - Clean-Contaminated Last Modified By: Andrés Wilks RN 01/17/23 09:45:01 General Case Data FT Pre-Care Text: Classifies surgical wound, implements aseptic technique, initiates traffic control Entry 1 Case Information OR ENDO 1 FT Case Level Level 2 Wound Class 2 - Clean-Contaminated Specialty Gastroenterology ASA Class 3 Preop Diagnosis Diarrhea, Family Postop Same As Preop No history of colon cancer Postop Diagnosis Ascending colon polyp, Outcomes Met? Yes Internal hemorrhoids Last Modified By: Andrés Wilks RN 01/17/23 09:45:10 Post-Care Text: The patient is free from signs and symptoms of infection Skin Assessment (Pre Procedure) FT Pre-Care Text: Implements protective measures to prevent skin/ tissue injury due to thermal or mechanical sources Evaluates for signs and symptoms of physical injury to skin and tissue Entry 1 Skin Integrity Dry, Warm Skin Abnormality No Outcomes Met? Yes Last Modified By: Andrés Wilks RN 01/17/23 09:27:31 Post-Care Text: The patient is free from signs and symptoms of injury caused by extraneous objects Patient Positioning FT Pre-Care Text: Identifies physical alterations that require additional precautions for procedure-specific positioning, verifies presence of prosthetics or corrective devices, positions the patient, evaluates the patient for signs and symptoms of injury as a result of positioning Entry 1 Procedure COLONOSCOPY(.) Body Position Lateral, right side up Feet Uncrossed? Yes Left Arm Position Resting at Side Right Arm (more content not included)... Normal [facility] Main OR PACU I Recordon Main OR PACU I Record PACU Phase I Document Type FT Summary Primary Physician: Zulema CRAMER MD Finalized Date/Time: 01/17/23 10:32:26 Pt. Name: KETURAH HERRERA Vasquez/Sex: 1970 Female Med Rec #: [id number] Physician: Zulema CRAMER MD Financial #: [id number] Pt. Type: O Room/Bed: Endo 10/17 Admit/Disch: 01/17/23 08:13:37 - Institution: Case Times PACU I FT Pre-Care Text: Identifies barriers to communication and implements measures to provide psychological support Develops individualized plan of care, and ensures continuity of care Maintains patient's dignity and privacy, and maintains patient confidentiality Identifies and reports philosophical, cultural, and spiritual beliefs and values Identifies individual values and wishes concerning care Implements aseptic technique, and administers prescribed antibiotic therapy and immunizing agents as ordered Evaluates postoperative tissue perfusion Implements thermoregulation measures, and monitors body temperature Evaluates postoperative respiratory status Evaluates postoperative cardiac status Evaluates postoperative neurological status Assesses pain control, collaborated in initiating patient-controlled analgesia and implements alternative methods of pain control Verifies allergies, administers prescribed medications and solutions, evaluates response to medications Entry 1 In PACU I 01/17/23 09:39:00 Discharge from PACU 01/17/23 10:09:00 I Outcomes Met? Yes Last Modified By: LIZZETTE SOL RN 01/17/23 10:32:12 Post-Care Text: The patient demonstrates knowledge of the expected response to the operative or invasive procedure The patient's care is consistent with the individualized perioperative plan of care The patient's right to privacy is maintained The patient's value system, lifestyle, ethnicity, and culture are considered, respected, and incorporated into the perioperative plan of care The patient participates in decisions affecting his or her perioperative plan of care The patient is free from signs and symptoms of infection The patient has wound/tissue perfusion consistent with or improved from baseline levels established preoperatively The patient is at or returning to normothermia at the conclusion of the immediate postoperative period The patient's respiratory function is consistent with or improved from baseline levels established preoperatively The patient's cardiovascular status is consistent with or improved from baseline levels established preoperatively The patient's cardiovascular status is consistent with or improved from baseline levels established preoperatively The patient demonstrates and/or reports adequate pain control throughout the perioperative period The patient received appropriate medication(s), safely administered during the perioperative period Acuity Level PACU I FT Entry 1 Start Time 01/17/23 09:39:00 Stop Time 01/17/23 10:09:00 Acuity Level Acuity Level I Last Modified By: LIZZETTE SOL RN 01/17/23 10:32:23 Finalized By: LIZZETTE SOL RN Document Signatures Signed By: LIZZETTE SOL RN 01/17/23 10:32 Normal [facility] Main OR Preoperative Recordo n 01-17-2023 Main OR Preoperative Record Holding Area Document Type FT Summary Primary Physician: Zulema CRAMER MD Finalized Date/Time: 01/17/23 08:35:14 Pt. Name: FERDevynKETURAH D.O.B./Sex: 1970 Female Med Rec #: [id number] Physician: Zulema CRAMER MD Financial #: [id number] Pt. Type: O Room/Bed: Endo 10/17 Admit/Disch: 01/17/23 08:13:37 - Institution: Case Times Holding FT Pre-Care Text: Verifies consent for planned procedure, identifies individual values and wishes concerning care, includes family members in perioperative teaching Secures patient's records' belongings, and valuables, maintains patient's dignity and privacy, and maintains patient confidentiality Entry 1 In Holding 01/17/23 08:22:00 Outcomes Met? Yes Last Modified By: Sonya See RN 01/17/23 08:21:27 Post-Care Text: The patient participates in decisions affecting his or her perioperative plan of care The patient's right to privacy is maintained Surgery Checklist FT Entry 1 Patient Birthday, ID Band Procedure History and Physical, Identification: Check, Patient Verification: Surgical Consent, With Participation Patient NPO after Midnight: No Date/Time: 01/17/23 02:30:00 Personal Items: Cataract Lens Implant, Personal Items x1 ring, clothes, no Jewelry Comment: teeth Limitations: no Complaints of Pain: Yes Pain Comment: lower back Operative Site n/a Marking: Marked By: n/a Availability Equipment Verified: Does Patient Smoke Yes If Yes to Smoking. 1PPD Cigars or Cigarettes. How much per day? Patient states Yes Comment - Adult Rosi- Boyfriend postop adult Supervision supervision available Case Cancelled in No Holding Area see comments below for reason Last Modified By: Sonya See RN 01/17/23 08:35:11 General Comments: 100% prep in but patient vomited and also took laxatives last night. Patient states last bowel movement clear yellow./ELY,RN Finalized By: Sonya See RN Document Signatures Signed By: Sonya See RN 01/17/23 08:35 Normal [facility] Monitor Recordon 01-17-2023 Monitor Record [id number]#[id number] :127 Normal [facility] Monitor Record [id number]#[id number] :127 [facility] Patient Education - Texton 0 01-17-2023 Patient Education - Text Colonoscopy Care After Surgery Please read the instructions outlined below and refer to this sheet in the next few weeks. These discharge instructions provide you with general information on caring for yourself after you leave the hospital. Your doctor may also give you specific instructions. While your treatment has been planned according to the most current medical practices available, unavoidable complications occasionally occur. If you have any problems or questions after discharge, please call your doctor. ACTIVITY You may resume your regular activity, but move at a slower pace for the next 24 hours. Take frequent rest periods for the next 24 hours. Walking will help get rid of the air and reduce the bloated feeling in your abdomen (belly). No driving for 24 hours (because of the anesthesia (medicine) used during the test). You may shower. Do not sign any important legal documents or operate any machinery for 24 hours (because of the anesthesia used during the test). NUTRITION Drink plenty of fluids. You may resume your normal diet as instructed by your doctor. Begin with a light meal and progress to your normal diet. Heavy or fried foods are harder to digest and may make you feel nauseated (sick to your stomach). Avoid alcoholic beverages for 24 hours or as instructed. MEDICATIONS You may resume your normal medications unless your doctor tells you otherwise. WHAT YOU CAN EXPECT TODAY Some feelings of bloating in the abdomen. Passage of more gas than usual. Spotting of blood in your stool or on the toilet paper. FOLLOW-UP Your doctor will discuss the results of your test with you. SEEK IMMEDIATE MEDICAL ATTENTION IF: There is more than a spotting of blood in your stool. There is abdominal distention (your abdomen is swollen). There is vomiting. You have a temperature over 101.5 F. There is abdominal pain or discomfort that is severe or gets worse throughout the day. Gastroenterology Hemorrhoids Hemorrhoids are swollen veins that may develop: ? In the butt (rectum). These are called internal hemorrhoids. ? Around the opening of the butt (anus). These are called external hemorrhoids. Hemorrhoids can cause pain, itching, or bleeding. Most of the time, they do not cause serious problems. They usually get better with diet changes, lifestyle changes, and other home treatments. What are the causes? This condition may be caused by: ? Having trouble pooping (constipation). ? Pushing hard (straining) to poop. ? Watery poop (diarrhea). ? . ? Being very overweight (obese). ? Sitting for long periods of time. ? Heavy lifting or other activity that causes you to strain. ? Anal sex. ? Riding a bike for a long period of time. What are the signs or symptoms? Symptoms of this condition include: ? Pain. ? Itching or soreness in the butt. ? Bleeding from the butt. ? Leaking poop. ? Swelling in the area. ? One or more lumps around the opening of your butt. How is this diagnosed? A doctor can often diagnose this condition by looking at the affected area. The doctor may also: ? Do an exam that involves feeling the area with a gloved hand (digital rectal exam). ? Examine the area inside your butt using a small tube (anoscope). ? Order blood tests. This may be done if you have lost a lot of blood. ? Have you get a test that involves looking inside the colon using a flexible tube with a camera on the end (sigmoidoscopy or colonoscopy). How is this treated? This condition can usually be treated at home. Your doctor may tell you to change what you eat, make lifestyle changes, or try home treatments. If these do not help, procedures can be done to remove the hemorrhoids or make them smaller. These may involve: ? Placing rubber bands at the base of the hemorrhoids to cut off their blood supply. ? Injecting medicine into the hemorrhoids to shrink them. ? Shining a type of light energy onto the hemorrhoids to cause them to fall off. ? Doing surgery to remove the hemorrhoids or cut off their blood supply. Follow these instructions at home: Eating and drinking ? Eat foods that have a lot of fiber in them. These include whole grains, beans, nuts, fruits, and vegetables. ? Ask your doctor about taking products that have added fiber (fibersupplements). ? Reduce the amount of fat in your diet. You can do this by: ? Eating low-fat dairy products. ? Eating less red meat. ? Avoiding processed foods. ? Drink enough fluid to keep your pee (urine) pale yellow. Managing pain and swelling ? Take a warm-water bath (sitz bath) for 20 minutes to ease pain. Do this 3?4 times a day. You may do this in a bathtub or using a portable sitz bath that fits over the toilet. ? If told, put ice on the painful area. It may be helpful to use ice between your warm baths. ? Put ice in a plas (more content not included)... 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, third and fourth digital deformities OPERATION: Right third metatarsal Daphne osteotomy with screw fixation and right second digit PIPJ arthrodesis with K-wire and right third and fourth digit PIPJ arthroplasties PATHOLOGY: Bone, right second, third and fourth proximal phalanx heads ANESTHESIA: General HEMOSTASIS: 250 mm Hg right ankle tourniquet for 42 minutes ESTIMATED BLOOD LOSS: None MATERIALS: 3-0 Vicryl, 4-0 Nylon and a 0.045 K-wire and an Arthrex 2.0 mm x 11 mm snap off screw INJECTABLES: 10 cc of 0.5% Sensorcaine plain PROCEDURE IN DETAIL: The patient was brought into the Operating Room and placed on the operating table in supine position at which point in time the tourniquet was then placed around the patient's right ankle. Following I.V. sedation the foot was scrubbed, prepped and draped in the usual sterile manner. An Esmarch bandage was then utilized to exsanguinate the patient's right foot and the tourniquet was inflated to 250 mm Hg for a total of 42 minutes. Attention was then directed to the right second digit where a dorsal linear incision was made over the contour of the deformity. The incision was deepened through the subcutaneous tissues using sharp and blunt dissection with care being taken to identify and retract all vital neurovascular structures. All bleeders were ligated and cauterized as necessary. At this time a transverse tenotomy and capsulotomy was performed at the proximal interphalangeal joint of the right second digit with soft tissue structures reflected medially and laterally thus exposing the head of the proximal phalanx as well as the base of the middle phalanx. Sagittal bone saw was utilized to remove the head of the proximal phalanx and attention was redirected to the base of the middle phalanx which was denuded of all cartilage utilizing a rongeur. A 0.045 K-wire was then driven from the middle phalanx distally off the end of the digit and retrograded through the proximal phalanx with rectus digit noted. The remaining K-wire was bent and cut with Jurgan ball applied. Attention was then directed to the right third digit where a dorsal linear incision was made over the contour of the deformity and the incision was deepened through the subcutaneous tissue using sharp and blunt dissection with care being taken to identify and retract all vital neurovascular structures. All bleeders were ligated and cauterized as necessary. At this time a transverse tenotomy and capsulotomy was performed of the third proximal interphalangeal joint with soft tissue structures reflected medially and lateral thus exposing the head of the proximal phalanx. Sagittal bone saw was then utilized to remove the head of the proximal phalanx and attention was then redirected to the proximal most incision site where a curved linear incision was made proximally over the third metatarsophalangeal joint and slightly proximally. The incision was extended deep down to the level of the capsular tissue which was then transected with a linear incision with soft tissue structures reflected medially and laterally thus exposing the head of the third metatarsal. A Daphne osteotomy was then created into the head of the third metatarsal and was noted to shift approximately 5 mm proximally at which point in time a 2.0 mm x 11 mm Arthrex self-drilling snap off screw was inserted across the osteotomy site with good compression noted. A rongeur was utilized to remove all dorsal bone shelf that remained and a rasp was utilized to smooth the bone shelf with good range of motion noted with negative impingement on the motion of the third metatarsophalangeal joint. Attention was then directed to the fourth digit where a similar procedure was performed in similar fashion as to the third digit. Upon completion of the procedures all wounds were flushed with copious amounts of sterile Normal Saline. The capsular structure over the third metatarsophalangeal joint was reapproximated and coapted utilizing 3-0 Vicryl and the proximal interphalangeal joint of the second, third and fourth digits were reapproximated and coapted utilizing 3-0 Vicryl and then the subcuticular sutures were reapproximated and coapted utilizing 3-0 Vicryl to the area of the third metatarsophalangeal joint and the skin was then reapproximated and coapted utilizing 4-0 Nylon in a simple and horizontal mattress suture technique. It should be noted that prior to the procedure a total of 8 cc of Sensorcaine 0.5% plain was injected in digital block fashion as well as Armstrong block fashion of the third metatarsal region and at the end of the procedure approximately 3 cc were injected as postoperative blocks as well. Upon completion of the procedure the tourniquet was deflated with prompt hyperemic response to digits 1-5 of the right foot. A (more content not included)... Normal [facility] Comment on above: Result Comment: Elec tronically Signed By: Harsh RIZO, Martin Jerome\.rosi\Date and Time Signed: 12/13/22 08:38 EDT XR KNEE LT 4V or >on 023 XR KNEE LT 4V or > EXAM: XR KNEE LT 4V or >, XR ANKLE LT MIN 3 V HISTORY: Traumatic injury COMPARISON: 10/26/2014 TECHNIQUE: Multiple views of the left knee and ankle FINDINGS: Knee: There is no acute fracture. No knee joint effusion. There is no dislocation. Soft tissue is unremarkable. Ankle: There is no acute fracture or dislocation. Talar dome is congruent. IMPRESSION: No acute fracture. Electronically authenticated by: LILIANA NDIAYE Date: 2022-11-29 16:44 Normal [facility] Formson 11-28-2022 Forms [id number]#[id number] :127 Normal [facility] Postoperative Documentson Postoperative Documents [id number]#[id number]: 127 Normal [facility] IntraOperative Documentson 0 11-26-2022 IntraOperative Documents [id number]#[id number] :127 Normal [facility] Coding Summary.on 11-23-2022 Coding Summary. CD:[id number] Ww+P GhlYWQ+XH9RUQZlJ07eaJAny E7gX4NVCDiWFzaaVJUGOMsLS gOudzKtER8roAEqCZZu IC8+NL3oVPZfBbpqfBQhj2Z5 yOD1V85ufn5yZOfowFT4SGGo UjOdpzszo1tpjXk3VLxdFdro OyBt KOOheO92XKL8tO24Pz28wHCs cMXeb2imtYp8IpPyXMMrWHL3 bFwwIUlfg7NyJTCeM09gtNJk c2U6 MNHqnRoupRWbKwQqtYL6pP4g GPesvrbyu1dqqimtPmk5gc68 eRAcl7G2hSU8H8NvrqC5YGYe bGQg QsxzuLXIoE4gqgrtp1pdwmhh SnIfVZYiJHg5LQg7BTPyuWyf HvJcRY31EEI8VZBvwoRvU8Po LWFs pUbsGgW8c2U6Av9CB4HFJczo I6UBKRTGTOenuTV+UD53ob48 E9OhPvzaDve7NLViBMH2xZI6 aD0n VOXhFFozr5P2bCG4E8EkqvJz ud6pa0ptMNIiTUvhZ62itSVe d2E5FQKxyFA1TWAttHmuPeSw aG93 Oyc+YIInvWpiz2LhYcjjv5ie r9ucnAz1VeguJBPbefTxxTey QHQ8g6KmRl6oMGIzeGS0eXZ4 aD0i FzMqUbY3EGxmL350WcQyaDEj OzdgC34dH2QojHN+PHRyPjx0 VJGxgUbmMU4eQ5MuMUYhjqbm bGVm xBmvKT1lNQAmigauOHBzsL5y AFHlB2z0YkJtBtY3JTijM6Jw WEGxeiivQn96bY8jAaRrVuK1 MGlu Q3DtmiG7QZAftHSnDXahQKZ6 U61ty3X4EWHvYQIqVWQ6sRZ7 cF7mkFarbmrivDJzbXfoifYn dGlj ZTfyASzrW589XNAtnYlyRiOd ZGluZyBEYXRlOiAgMDQvMDcv MjAyMzwvdGQ+HHQoCXA1tAyl PSAn eHPfVPbvYc1dyXaklTdgFT6o RUSumdiaVSIcsD0mHNJckJDm wFfoHI2uFJMbkjcrp116WoCj MHB0 UJEvbSDfI3RsyP5rQzQyXPRi WAEvI0ZejZYgUIjiV881OGis RxD1FQBnznZdM8TjXOOemIjf OiB0 k6T9Tk6Ic0EfigliC3DbiKOf GqGbCgvqGCe1J9IyAdkpbXP+ UW58MAQdEW95TRs7VGM9cTnb PSdi WEHkT6DqmQ9qJmZiATLoZYIr Oyc+PHRhYmxlIHdpZHRoPScx VFYmZmKxmTwqQZ5bVb0hEJQw LWNv dLcmcCJwEqBfk2jgCRNzUIkv WP2xsPdqQ0VygDV2IEOjt5m7 Gb28Q35pZ2IumAO+PGNvbCB3 aWR0 kQ7oWxFxRqP4GPwfF954ZqFc oZRfTbzxv7pyt8hwgCj9VfA9 NCEhysOoeJleDHV7c8MfLw45 Y29s IHdpZHRoPSIxNSUiIHZhbGln ke5jgO8qMr9+UPTotKW5oZS8 jE5dPoIeQtR5UEgnO175HmWq cCIv Ngeyd5idw4jfaCh4ZvVeJVHr qcDfrFhiRZJ4q4EwVo50U1Zv rIzmk9SyJne6kd41xIZqk7V2 bGU9 R2FeQPAvhirwuMNrrJqmOY1c AMHypntuYGNlcY3vPIZvA3r1 XfPnOyH8EDtmC8HbdrB6RMXk bGQg UQHxpDHYpF0oqanzj7uvajye AfRiRPQcUBa6KFv3KDMxjSaa DpDlFXS4YmI9VIJ1xYUueQ5a bGln qqkumZ0iYtj+FZO4bYYsoEDB ZB6tVjotfAD+HUCiWLP3jEuh YPblTSNymY3oCIHvT1f1QjOa LjA1 XCsyB0GaulO8LJUtpHOqHNFn hTICfF2ozyosu4dycltxGnWd JUQiADw5ZZy2ZGLhuBfhVuMg ZWZ0 ZfO8HZC6lAEyjV0xpQbxsgqt lE3wAvl+XbsbaQapVKM1RTh0 N5GnAxm8DTVdqMjgBL9thEQz ZGlu Od2giOdjwUbmLX2wSMRgszri d523KkAbq9yrTGYkvMLsIDhr BGP7Z10ni1D9VJYzHSIfQDS5 dGV4 sM1osBrzktassHWwbBiczdIy lCuyRBewXWknB032HKLvhYju LhZpAVs9Q7GdPra6BOQqmTtq ZT0n sXXoBIjhCi9bsEuvwJwjWR5c CHJoyxruw358DlMqh2rlEKAf dQPtHXeaIVW0I48nh7W4QMXz MDAw HRS7lKE1gX9bsQgnzpbbjZHd lPxxfnOmkCuhRVfzRRdtV261 CPBupSsmUbRkfHn6X8IlMji5 ZCBz rLbhOX2enSDjHMreEy9uzPvj aWoqLI6nXRJrdmckk826BlUr u4fjYTSchENyBIazNBO7Z64y b3I6 SWKlAJZtHMS3xKP9wT7mxQzt bjogbGVmdDsgdmVydGljYWwt DOgpT581JFKzlQaiEsTbyWcd bnQg RGxwRBn5D1JiAqhnbNM+PC90 GFYpWD50iLDffDNhb8zruKx5 XbZmMNMlPGV9dBbcWCxtv6Xc ZXIt W64xiDIie3L0HYRubRyvuQKb MvJxbZD3qP1iKEgznktnu0bn bpnbNyujp4bsfh47tN65U87s IHdp LRXxZWEjTGWaFFZvvSlwws8e wJ8iRj1+NNGmfLW6zJT3yW7i DKRwKjZ1ARoyL139LrFysDFe Pjxj k2arv5cpcVj4MnG8BVZzvwOf oAvwBMI0r5NwVp17W49lTVjm DSOhBBGvZHWmVVAwpDdwsp1z dG9w Ii8+TTJirBY4xCP6mT8mEnTh NyA5AVviA342QtUlrNXkYnhx W00jM0PqwYU+PFDxPsu7MQFf dHls FD2kbDMmVCinMp3iBNT7YwKf TzZqXHyyG5LdXMMwjnqlnfpp aXR5QPGvXIMlxT49Vz1xnZbl MTBw jSWXnE7oizxta8vwdzdiXlIr OWLqPPv8YWr5UGRlyGmcVtZu LJR6WwI1RZT4jAEicQ2mqQax bjog yD1aX6YlNNLhnftsKm06wQ0o CjOuCuF1OTlwIxr+UEFSSVNI VYUKFT3LTDX3Q4QiCqg8NQDa dHls VO5duGMiAXhsWq6bqOisuAht ME1gUKIgqrbtXQXacY0cKEJn qADkhMrlLM1gIEWtwxkpz531 OiAx UGK6WHCcdEZxV0TpqR4vAzIc FOKyPKZuI9WaaLZlJJljL345 HGyxLlT7KMIxihKpW1DxHAPg aWdu CvI0r1X8Vj6sFs4jEG1aLAst MI67GD79kMTyp3P7qDZ4K6Mt OVHaozesodxyfQB9FNRiUXBe aW47 wHZtYLwtIh5jm5F0r595MXBx RISwiM19Jj9uyKasXHMupJWE xE1nuyrzv1lpjamzLmMjKEVh MDt0 LQs2XHSvzVmlJiLoTYT7FaD4 UQE6nKGamA3mdKmuyahuzI3w Oyc+HBEtYUHekyU9Y7FfDvy9 ZCBz rEqnEI0twQUkSUlcWr9eeHxb lToaBW1wGCUrhpznZIIsjD4l AAHtbNWjaUbaEE4tJNTrnhif b250 QbOnGMZ9TXHhxKPxZ5OqnF9h TdRdKDYmXHWoC9GgnNNgZZbv R466YRqoBcH3SUQpsfZnP4Ww LWFs tDanCsS1k2K0Ak2TKT9xkRV2 F9ZdUnp5UFSbzEatMZ0hxCVp KPwaHo0ezCwicRswDQ3kHWAi bjtw TNFdhL8cAIGccLOnkGjzWX0p GVQqmrlnn375VtNjMPR7APOf cDWhJ6IapU2iYdVwTCNaGQZn O3Rl oKKgCMmiK018GDwzPwK8ZPIs qbQnS3VrSPMpjGslRxL1i8L4 Aj8PpWIjCZSbIR77MJ17VU85 L3Ry PjwvdGFibGU+PHRhYmxlIHdp MIEjMSlqAAMfApPwcBhaQP6a Sy9gBLQrWUCekIufuCHxOaRy b2xs AMWdVWafXS3qpRqzI1HnqUJ3 KSVah0c9Rh60S65aA0FfkAG+ ZPFumUH4aFH3gW5dBeDuOcK2 YWxp M504DdIpxJZnUzqxp5yme7bq lJu4QkTtLPVahlJwqIvxWKK8 n7ShAt87A34dOTkbEQYoHGHc MCUi TKXoaUwqtw3hxT1oRg5+PGNv vJZ9jZK5tM5zPjLrCvJ6THvw L972MhGafUCuDyrhE68pO3Mn dXA+ VUHgGwu8FURvyHhwCX3pkYPa GSrvZk2fTMJ1PlFiYbJsUHmd Z2WwKVPblpigaystlCU2HKLv MDUw iN23Jz6pmQdySy4uGAOtIBA9 LZSunXKbC5NotV8kVjQbDSXt IIOgD1SkbWOzENjqH961SLhj ZnQ7 ZMUbtgTyB7WmRCVoxLrdRaO1 m6C5Gr2ReOcgbELwCX0dItMp JKg7A3EpZla6LMPzlFsdLS7s cGFk SYjdKp0waHyvtSvrLS2mJNDm srjzi604VeVin5niTUMdtHYb RItwSMX3R84yf1D4KKPpABOr MDA7 rMS3gR0znCuhmfrdlZRaoDfg xwXflJqdYPfpVUvbI223HEGk oYexNiFYQol9B5EjMgp1OKGw dHls NQ6voXErAUvxAo4cqPhlgAhq WS0jGNKwyehmq593SqZge1wf BVKeoPSiUHoqUXI2B09fi9J1 ICMw QOUyOHD1eGY2uT9zfExdkjvn bGVmdDsgdmVydGljYWwtYWxp S991FTGayGubHe7MWye4F6Fw Pjx0 LPYrkPxrIS4jwHTrERobYt1y yWyltUmaHQ4hLILgxwlcw314 QiQex5ekHLZwtJDeRYnuRWU6 Y29s a1W5CTBlIFGrTLT6uJS9nV0x bGlnbjogbGVmdDsgdmVydGlj HNbsOEfuH120BFPydQkpPsMv eWVy OjwvdGQ+PV21rt99K6SnSwqn Vcy7ASFyJPG1yTY3uW2zCSFq UPaky6E2zXN0X0FukuFfog0j b2xs YXBzZTog (more content not included)... Normal [facility] Coding Summary. CD:[id number] Ww+P GhlYWQ+HC4PNRQyX40nlUAqe Z7pE1PEVHbLXwceIUXMDGjVZ vGzicHjRM3bmFBrSKUw IC8+AU7lIXNgEtgqqRNcq4G7 fMY5Z85fbx4dNJqyhSQ4LZJr DeIauuidf7wmqEp1GPjaWwqu OyBt QXFnhP58COQ4aU14Nx73dYYx kXDqq7ariVm0ToUdLXGfDMX5 rCtjBUsrd8JdGVSaV58imJAw c2U6 ETCfwVouoCBdLuOlgOF0dG2y JCsncaylf8dswsecGhe0el32 yZVlj6K2zSQ4Y9LmofU7KECz bGQg VjzaoNFFwL3eibxvu5zojzod NzVjFMVkCWw0DBw4JQZiaHiu AuLzBR92NCS5RUQfsdElY4Lt LWFs mYohLqL3u8R8Tj4CD6ZFMkeu Q2PAFQZDOLwnwDP+NJ04zn59 E4IvFzrhQtx0YIYrXVW6sRR3 aD0n JYGuSYudw7Z0qPO1D7WtkfZw yz6en1msQGIrIYzmN84pkOTs k5N5OMIxbXH5UIDoqDpzTaOd aG93 Oyc+NLDnmBtkc7KyVnwdv8dr f3wnjSs1DyfaJLRvkuEscLfe IPU4t9EyCm2bFESmpME8vGO7 aD0i BsGvQlX0CMdnC088IeIguYYj KadbW14dR7KtyLT+PHRyPjx0 UJMwjVlpIJ2dV7IhBPHyvger bGVm lNrnMS1qVNUhutprJIIeiX8p CZWrV2f4CoGvJcI0ZVroW1Sr ODTzqccgEf44rQ5eSqRrElL9 MGlu H5YqrpT2ZWHvjXVfVQbpSVZ4 K60ot4V0DBQyGNJcDPZ9oII0 zV1rpTgnpygwaGIwoWqehrYj dGlj IPtwWThpJ950KXNzyNqpBxHc ZGluZyBEYXRlOiAgMDQvMDcv MjAyMzwvdGQ+TVTeBYB0mIik PSAn bGKeBJpwBe0vnWokaTjiJM8q AOVtdqpbUHBzdP2qYJHbvMWf dNupCR2cQSKkmeiti324NoIh MHB0 UCMfcRImC4YdpL7sMuWrBXEj DAKbW6TzgEUlCJtmQ061XFvd CgD0RBRksoNyK7HiQLSppRfz OiB0 b0Q7Yw5Wc3ZjinznH9DcuFCb QgPaWomtTQj3K9OqSusjoIL+ UX49RUHaKP87LTf0LIR3hBzo PSdi HYNkC1CicZ4hZlPySRKtSUEd Oyc+PHRhYmxlIHdpZHRoPScx SFWaRyFafZmcXP1bZm8lDTKi LWNv sDjudQDeEpHzu2svVQPoXGuv XF1owLryE0PjlTQ9DRRtj4s4 Eh93S85zY7GpfGF+PGNvbCB3 aWR0 pL9uIiEyPfO6XLjtN291ZzBe xPPpInjzb5qtw4bkoUy3OlK2 HORcvlTjmHlkVND6u5XfAp11 Y29s IHdpZHRoPSIxNSUiIHZhbGln vr2dcA6qRd0+OHYbbCM9fDS7 gR8bBwYaBfI6TXxbV975GiZu cCIv Gnmwc6ptf6qjsFg7LvFxWUKr vkDmqSjtQEJ9u7VdEt03T6Ps eCdvg5OuXrf0vk07sKPyp7Y2 bGU9 H5LqUUDlabgvqOHnaTbiOY6d CWFcvskuKTNayM0aYMQtB2s0 YwYqRaS7CBdiG8CnnuV4KSOa bGQg WZDhxRYMqR9fxlaip4hjimnw JiUyUZXjDNf2QVe5ROSpkIzo SqDpNOY9CmF7NWO4yMSswT4o bGln bzknfS0kAtu+UKK7gWOxiCQP GE9uJcukgNP+EBLsGIH6iHkf AJyhCXQggK1gLRLbB2g4AwDc LjA1 VZimM1ZpqsZ3ICAuvGCvZUWe hJCZrK1bkqfto1tcadnlUvDc KIHkYRx6WOg5SOKdvZyvKrFl ZWZ0 NxL6QOK3aLShjI6dpVgvyqbg tW9mGvg+TilbeGgqYKR4XSr3 T0PbMun0ITPdoFurIE8waXVi ZGlu Mc8jkBlcxHnhFF7rJLOvibqf w660TcEep6ugBFUkeDVaTMza HSH6Q77lq2M0OBOwCVLbUVH5 dGV4 pQ3tiOpsekgabUWrcMaxmfOx sWciSXrwQCijE839INTnsTee KuXxZLb5H5EaEeb2BBVazLae ZT0n mHFrINrwSf0gvMihpCtbNF9y MJOuuzybg837FxUzu7cfAQYd lNPyIYioAXF0Q85hy6O7QHQg MDAw TAA3pSV1wK8hhXubpsiovOYf hTiqslHgwPkaODheMRgqU542 WKNrzJgcTtXkjGy7D7BxEzw4 ZCBz gHwqUR4wmHRoRFhkBj3jkTzt kYtgMY6vNWMezayim630EnKg u2ogPYFavPRuUZytTPN2N24d b3I6 PSJzSCKdLEM1rXM9pV9whEnc bjogbGVmdDsgdmVydGljYWwt YDrkC005KARemAmaGeKtrDgr bnQg JRecQRa2S1ExNlduuYU+PC90 TXRjCS18dWFucNXib8vtkFt6 PwVkXAKoOCW3uNloSLuvs9Zc ZXIt M38tzDKgj5H3EUHltIqvcAIr WaFthUT7kF5eDDhppqxsm6ek fhqbGpcnm6wvba06gX06D66y IHdp VMHbMWBgIENrWYJdfHsbne0b lE8lPx2+SSGogGY5yVE4vY1n IIZgAxD3LWlbB716IgVxqPBl Pjxj y7xjs0dxdKs6ZeQ3MSYnusBm sCrnDGA7c8NkTn63M00rGLxf GSKdIFOmABXaXMDssMfvus2n dG9w Ii8+YJJjjWG2kBN9mR1pGbKk ZpP9TTxnH482JnVkwNMcZtfs O30cX9HvpTB+BHHrSpa3KQUm dHls LV5bgZXwNAcmAk7sAXZ3BhPk QkMwKIikE6QwGVLfypemqxpb xQV3LTJeFEAayB18Vm6deDil MTBw xRVScZ3kaxlir2aoqrglSxCa MLNkJTs4SWd3YOPonGxuWbOf NMR6XdG3SWO0rXEydS9hhHly bjog qM1oK6CwGPUsnqfxSw68oL6z YgGlQcK4SOgcMcq+UEFSSVNI UADBZH5LKEQ5F8YdEvn5EGPd dHls ZU6uzYUaMFwjXx0iuYosxUpv GA1jHZYqawpqLRImtN0lREBi iPHqbKtgQP7yARIkhxuzb543 OiAx LWE6MDBeaBGiD6EebT8sPfQa NKGuFDXcU2ZpgDRvYFfaU577 LKmaOzJ3ZIXeuwRxS1QqHBRb aWdu AqS6t6T3Ox0dRo6uFE5tUNmj VX53XJ53bEGgb6C4kFD4X1Fb BKTygauzqkxcpGQ2LRVdFOWx aW47 hWEsXQblLw5ls6I4w087WRIh QXWhoV83Ff6poAurDWVvcBIW yU4dfrjlg0qltapvHrAxVLNn MDt0 BTy3XFDkrOgoYeYxBOI2DzK0 KLN4hKXchT9yeOkllczsqD8z Oyc+CTZjRLQjudC9C7WbJgo9 ZCBz bSmlPV1afNIpGNeeAm8eyJbu vPsiBX4dPWVpocheACPpkT6o UIVfrAYjkJtyNK1bMHUaqjeo b250 QlOaSVL3UNGpzRQjA3WgvA5b TqFnIIFqLLCaS4FffXIdQYvc Y380SYapHrL1EEAxcdCuQ6Jf LWFs oIqdEoE9r9P5Ky1SWM1gkSF7 B9UoVat3ZHKtqTdoFK4csDOb QLzuGw1rvXjgvVeyIW6yFLXb bjtw CSMggB9mYVFpgXUsiMxpNM4t PDNivqaff258MaYzNHP5PDKi oTEaE6OstQ1iFyPbXPTxYMVo O3Rl vCZxAZciL392VXwvJlJ6QORh seZtF9SnKBJogTirHrH9t5E1 Sj2WeMJ7mIB3c1A5S9EnhPEr RGF5 AUD6juctowi5B1QxJxtwoDK+ BA66TBRmXW73mGQudWXrt0pb mIv8FtJtZXDyMQV4tJxtXVyz b3Jk DUXfU91ixIObq0N4EGZlvUzg vONbVkHgyPC0xW5iLZytooio g4zwmspwZrgcd4hutp97wV04 Y29s IHdpZHRoPSIzMCUiIHZhbGln fr0zeC6qKl7+THQndZH2wBV8 rR5yDsRxJbN9BAxrU420HrOf cCIv Vplcc5yoy3fedLe6PjZxVLNi sjGhlExmXNL3m7WnWp40V92n IHdpZHRoPSIyMCUiIHZhbGln bj0i nG8vYe9+ZX7re5flhk68jO61 dHI+TQTxTQM9wTcxSGivOOWh pF3vKVnuClY1GZLtLmIgmR93 cGFk QNciJf3ufBbijCfuNR0hUWWi kijom656RbHfa1haYYDafGCb TEhqRSS1N78yz8D7SXQjYHPs MDA7 uVC6hO8ywHzbxzgxfNMhuBqa hdVfeYevQYorNTfnJ880NFKn gZqoVrWryUFoV6lgloVVDW7q Ojwv dGQ+YCFyYIR0uRtfNRdlTHCt tF6rNAPyU8a4UkHjBdW3CYvj G7AldqL1UYUgsYCwOVMehSUU aW1l cjpwd1yaydpfTaNoCDAnTSt8 WBi0AABokPixFoWpAJP5MkH4 HPW4kITyoJ3jfNdqcpjrfM4d Oyc+ RklOOjwvdGQ+ZWYmLFV9fJpx FJagYADavD3oRHQaH3f2SpKp UhL3HZzxQ2WmtgA4RQUpkGLo MTBw aMJLuO3fgbdln9lxjeymGaEb XPWvPVu3QVj0VOQspEqgFiGn VDR3SgX4MGZ2yPLgfQ6lbNrp bjog oG6tZiu+TVJOOjwvdGQ+PHRk EYO2sIybDBzyZDZxzO8cMVYb T1w7EtZaKmB0OQuiJ2WbzrF2 IGJv yYCcWKGlcMCZkM7bamgjj0li sqeyBmQpJFSiQEg0ASe3ZREq tPypCxMnROX4FrA1CHO6jYZj bC1h jGqmipndsS1gEuw+ARR5TSN4 WE59OI25Q9RwIzprpIYdcHM+ PHRhYmxlIHdpZHRoPScxMDAl JyBz cIroQE5h (more content not included)... Normal [facility] Main OR Intraoperative Recor don 11-23-2022 Main OR Intraoperative Record IntraOp Document Type FT Summary Primary Physician: Martin Arango DPM Finalized Date/Time: 11/23/22 07:26:47 Pt. Name: KETURAH HERRERA./Sex: 1970 Female Med Rec #: [id number] Physician: Martin Arango DPM Financial #: [id number] Pt. Type: A Room/Bed: [facility] Admit/Disch: 11/21/22 07:20:01 - 11/21/22 12:55:00 Institution: Case Times FT Entry 1 Patient Times In Room 11/21/22 09:08:00 Out Room 11/21/22 10:16:00 Procedure Times Start 11/21/22 09:29:00 Stop 11/21/22 10:12:00 Anesthesia Times Start 11/21/22 09:08:00 Stop 11/21/22 10:16:00 Last Modified By: Radha Cannon RN 11/21/22 10:16:36 General Comments: 11/23/22 Chart opened to review and send charges LRoth CSFA Case Attendance FT Entry 1 Entry 2 Entry 3 Case Attendee Brody Leon DO, DPM, Martin Curtis RN, CNOR, Seble Role Performed Anesthesiologist of Surgeon - Primary HEAT TREATER APPRENTICE Record Time In 11/21/22 09:08:00 11/21/22 09:08:00 11/21/22 09:08:00 Time Out 11/21/22 10:16:00 11/21/22 10:13:00 11/21/22 10:16:00 Procedure HAMMERTOE HAMMERTOE HAMMERTOE REPAIR(Right), REPAIR(Right), REPAIR(Right), METATARSAL FRACTURE METATARSAL FRACTURE METATARSAL FRACTURE ORIF(Right) ORIF(Right) ORIF(Right) Comments Last Modified By: Davis RN, Radha Cannon RN, Radha Cannon RN, Radha Jerome 11/21/22 10:23:38 11/21/22 10:23:38 11/21/22 10:23:38 Entry 4 Entry 5 Entry 6 Case Attendee Davis LAZO, Radha Anton, Maya Delcid SUPERVISOR SPECIAL EFFECTS, Adrienne Coto Role Performed New Car Sales Manager - Primary Scrub - Primary Scrub - Primary Time In 11/21/22 09:08:00 11/21/22 09:08:00 11/21/22 09:08:00 Time Out 11/21/22 10:16:00 11/21/22 10:16:00 11/21/22 10:16:00 Procedure HAMMERTOE HAMMERTOE HAMMERTOE REPAIR(Right), REPAIR(Right), REPAIR(Right), METATARSAL FRACTURE METATARSAL FRACTURE METATARSAL FRACTURE ORIF(Right) ORIF(Right) ORIF(Right) Comments Last Modified By: Davis RN, Radha Cannon RN, Radha Cannon RN, Radha Jerome 11/21/22 10:23:38 11/21/22 10:23:38 11/21/22 10:23:38 General Comments: yandel hancock arthrex rep in and out of room as needed. Ana contreras rnrn traveling Protocols FT Pre-Care Text: Implements protective measures prior to operative or invasive procedure, confirms identity before the operative or invasive procedure, verifies operative procedure, surgical site, and laterality Entry 1 Procedure(s) HAMMERTOE Patient Identity Birthday, ID Band REPAIR(Right), Verified (select at Check, Patient METATARSAL FRACTURE least 2): Participation ORIF(Right) Consents / H and P Anesthesia Consent, Operative Site Present Verified HandP, Surgery/Procedure Marking Verified Consent Surgical Site Yes Laterality Verified Yes Verified Procedure Verified Yes Correct Patient Yes Position Verified Availability Equipment, Implant, Prep Dry Yes Verified (If Medication, X-ray Applicable) PreOp Antibiotic Yes Time Out Brody Leon DO, Brown DPM, Kirsten Bravo RN, CNOR, Layd Flores, Davis LAZO, Desean Caro Jessica D, Schafer CST, Adrienne Coto Time Out Complete 11/21/22 09:27:00 Outcomes Met? Yes Last Modified By: Radha Cannon RN 11/21/22 09:37:11 Post-Care Text: The patient is free from signs and symptoms of injury caused by extraneous objects Allergy Information FT Pre-Care Text: Verifies allergies Entry 1 Allergies Reviewed? Yes Allergies Reviewed Self/Patient With Outcomes Met? Yes Last Modified By: Radha Cannon RN 11/21/22 09:37:16 Post-Care Text: The patient received appropriate medication(s) safely administered during the perioperative period Surgical Procedures FT Entry 1 Entry 2 Procedure Description Procedure HAMMERTOE REPAIR METATARSAL FRACTURE ORIF Modifiers Right Right Surgeon Description RIGHT FOOT THIRD RIGHT FOOT THIRD METATARSAL DEFORMITY METATARSAL DEFORMITY AND RIGHT SECOND THIRD AND RIGHT SECOND THIRD AND FOURTH HAMMER TOE AND FOURTH HAMMER TOE REPAIR REPAIR Primary Procedure No Yes Primary Surgeon Harsh RIZO, Martin Gipson DPM Start 11/21/22 09:29:00 11/21/22 09:29:00 Stop 11/21/22 10:12:00 11/21/22 10:12:00 Anesthesia Type General General Surgical Service Podiatry Podiatry Wound Class 1 - Clean 1 - Clean Last Modified By: Radha Cannon RN, RN, Emily A 11/21/22 10:23:39 11/21/22 10:23:39 General Case Data FT Pre-Care Text: Classifies surgical wound, implements aseptic technique, initiates traffic control Entry 1 Case Information OR OR 2 FT Case Level Level 4 Wound Class 1 - Clean Specialty Podiatry ASA Class 3 Preop Diagnosis RIGHT FOOT THIRD META Postop Same As Preop Yes DEFORMITY RIGHT SECOND THIRD AND FOURTH HAMMER TOE Postop Diagnosis RIGHT FOOT THIRD META Outcomes Met? Yes DEFORMITY RIGHT SECOND THIRD AND FOURTH HAMMER TOE Last Modified By: Courtney Herndon CST 11/23/22 07:26:41 Post-Care Text: The patient is free from signs and symptoms of infection Skin Assessment ( (more content not included)... Normal [facility] XR Foot 3+ Views Righton XR Foot 3+ Views Right Exam Date/Time: 11/21/2022 10:35 EDT Reason for Exam: Postoperative;Other (please specify) Report IMPRESSION: POSTSURGICAL CHANGES. CLINICAL HISTORY: Postoperative. COMMENT: 3 views. There is a metallic surgical pin extending the length of the shafts of the distal, middle, and proximal phalanges of the left second digit, with the end projecting plantar to metatarsal heads and necks. There is a metallic surgical screw in the head of the third metatarsal. There are small posterior and plantar heel spurs. Ordering Provider: Martin Arango FINAL REPORT Dictated: 11/23/2022 3:43 pm Sami Bermeo M.D. Signed (Electronic Signature): 11/23/2022 3:43 pm Signed by: Sami Bermeo M.D. Transcribed by: MERLE Technologist: BOGDAN Technical Comments Radiation Dose: Ka,r in mGy = na DAP = na [facility] Consent for Anesthesiaon Consent for Anesthesia [id number]#1.00CD :127 [facility] Discharge Instructionson Discharge Instructions [id number]#1.00CD :127 [facility] IntraOperative Documentson 0 11-22-2022 IntraOperative Documents [id number]#1.00CD :127 [facility] IntraOperative Documents [id number]#1.00CD :127 [facility] Preoperative Documentson Preoperative Documents [id number]#1.00CD :127 [facility] CHEMISTRYOrdered By: Lab ROP User on 11-21-2022 Glucose [Mass/Vol] 91 mg/dL Normal 55 - 99 mg/dL FTM C POC Subsection Comment on above: Result Comment: Dahlia sneha Meter POC Device SN [id number] Invalid Interpretation Code [facility] POC Subsection POC User ID [id number] Invalid Interpretation Code [facility] POC Subsection POC Username FELISA HOGUE Invalid Interpretation Code [facility] POC Subsection Capillary Glucose POCon Glucose [Mass/Vol] 91 mg/dL Normal 55-99 [facility] Comment on above: Result Comment: Dahlia sneha Meter Performed By: #### 2 [id number] ####[facility] [address] [place] [address] Consent for Treatmenton Consent for Treatment [id number]#1.00CD: 127 Normal [facility] H&P Updateon 11-21-2022 H&P Update [id number]#1.00CD :127 Normal [facility] H&P Update [id number]#1.00CD :127 Normal [facility] Inpatient Patient Summaryon 11-21-2022 Inpatient Patient Summary [place] [id number] [facility] Clinical Discharge Instructions PERSON INFORMATION Name: KETURAH HERRERA PHYSICIANS Admitting Physician: Martin Arango DPM Attending Physician: Martin Arango DPM PCP: ROBERT GIRON DO Discharge Diagnosis: Comment: PATIENT EDUCATION INFORMATION Instructions: Foot Cryocuff Patient Instructions - FT (CUSTOM); Post Op Patient Instructions - ELVIS (CUSTOM); Harsh - Post Operative Instructions (Revised 07/29/19) (Custom) ([id number]) (Custom) Medication Leaflets: Follow up: Type Location Start [facility] Follow Up [facility] 12/10/2022 2:40 PM 12/10/2022 3:00 PM Confirmed Surgery [facility] 01/17/2023 9:50 AM 01/17/2023 10:05 AM Confirmed URO Office Visit [facility] 01/30/2023 1:20 PM 01/30/2023 1:35 PM Confirmed MEDICATION LIST Medications to Continue with No Changes Other Medications albuterol (Ventolin HFA 90 mcg/inh Aerosol) 2 Puffs Inhalation 4 times a day as needed Shortness of breath or wheezing. alprazolam (Xanax) 0.5 Milligram By Mouth 3 times a day. aripiprazole (Abilify) 15 Milligram By Mouth every day., Bipolar atorvastatin (Lipitor 40 mg Tab) 2 Tablets By Mouth at bedtime. benztropine (benztropine 0.5 mg oral tablet) 1 Tablets By Mouth every day., tremers bifidobacterium infantis (Align 4 mg oral capsule) 1 Capsules By Mouth every day for 28 Days. Refills: 0. calcium-vitamin D (Calcium 600+D) 600 / 400 mg By Mouth every day. carvedilol (carvedilol 25 mg Tab) 1 Tablets By Mouth 2 times a day for 90 Days. Refills: 3. cetirizine (Zyrtec) 10 Milligram By Mouth every day. ergocalciferol (Vitamin D 50,000 intl units (1.25 mg) oral capsule) 1 Capsules By Mouth Saturday. famotidine (Pepcid 20 mg Tab) 1 Tablets By Mouth once a day (at bedtime) for 90 Days. Refills: 0. fremanezumab (Ajovy Autoinjector 225 mg/1.5 mL subcutaneous solution) 225 Milligram Subcutaneous once a month. furosemide (Lasix) 20 Milligram By Mouth every day. hydrOXYzine 50 Milligram By Mouth 4 times a day. loperamide (Imodium 2 mg oral capsule) 1 Capsules By Mouth every 6 hours as needed as needed for loose stool for 30 Days. not to exceed 8 capsules, or 16 mg, in 24 hours. Refills: 0. loperamide (Imodium A-D 2 mg oral tablet) 2 mg Oral BID and 2mg after each loose stool; as needed Diarrhea. Refills: 6. meclizine 25 Milligram By Mouth 4 times a day as needed Dizziness. montelukast (montelukast 10 mg Tab) 1 Tablets By Mouth every day. naratriptan (naratriptan 2.5 mg Tab) 1 Tablets By Mouth As Directed as needed Migraine headache. nortriptyline (nortriptyline 25 mg Cap) TAKE ONE CAPSULE BY MOUTH IN THE MORNING AND TAKE THREE CAPSULES AT BEDTIME. Oxygen (Oxygen - for Home) 3 Liter/minute Nasal Cannula every day. Oxygen - Continuous or Nocturnal Diagnosis: Portable 02 for physician visits, oxygen conservation. pantoprazole (Pantoprazole [address] Tab) 1 Tablets By Mouth every day for 90 Days. Refills: 0. pilocarpine (pilocarpine 5 mg Tab) TAKE 1 TABLET BY MOUTH THREE TIMES DAILY.. polyethylene glycol 3350 with electrolytes (NuLYTELY Aquino oral powder for reconstitution) 240 mL Oral Daily. Refills: 0. pramipexole (Mirapex 0.5 mg) 1.5 Milligram By Mouth 3 times a day., Takes at 1000, 1500, 2200 for Restless Leg rimegepant (Nurtec ODT) 75 Milligram By Mouth every 24 hours as needed as needed for migraine headache. solifenacin (Vesicare 10 mg Tab) 1 Tablets By Mouth every day. Refills: 5. thiamine (Vitamin B1 100 mg Tab) 1 Tablets By Mouth every day. Comment: Normal [facility] Main OR PACU I [facility] Main OR PACU I Record PACU Phase I Document Type FT Summary Primary Physician: Martin Arango DPM Finalized Date/Time: 11/21/22 11:21:14 Pt. Name: KETURAH HERRERA/Sex: 1970 Female Med Rec #: [id number] Physician: Martin Arango DPM Financial #: [id number] Pt. Type: A Room/Bed: AS04/19 Admit/Disch: 11/21/22 07:20:01 - Institution: Case Times PACU I FT Pre-Care Text: Identifies barriers to communication and implements measures to provide psychological support Develops individualized plan of care, and ensures continuity of care Maintains patient's dignity and privacy, and maintains patient confidentiality Identifies and reports philosophical, cultural, and spiritual beliefs and values Identifies individual values and wishes concerning care Implements aseptic technique, and administers prescribed antibiotic therapy and immunizing agents as ordered Evaluates postoperative tissue perfusion Implements thermoregulation measures, and monitors body temperature Evaluates postoperative respiratory status Evaluates postoperative cardiac status Evaluates postoperative neurological status Assesses pain control, collaborated in initiating patient-controlled analgesia and implements alternative methods of pain control Verifies allergies, administers prescribed medications and solutions, evaluates response to medications Entry 1 In PACU I 11/21/22 10:17:00 Discharge from PACU 11/21/22 11:00:00 I Outcomes Met? Yes Last Modified By: Justina Nassar RN 11/21/22 11:20:55 Post-Care Text: The patient demonstrates knowledge of the expected response to the operative or invasive procedure The patient's care is consistent with the individualized perioperative plan of care The patient's right to privacy is maintained The patient's value system, lifestyle, ethnicity, and culture are considered, respected, and incorporated into the perioperative plan of care The patient participates in decisions affecting his or her perioperative plan of care The patient is free from signs and symptoms of infection The patient has wound/tissue perfusion consistent with or improved from baseline levels established preoperatively The patient is at or returning to normothermia at the conclusion of the immediate postoperative period The patient's respiratory function is consistent with or improved from baseline levels established preoperatively The patient's cardiovascular status is consistent with or improved from baseline levels established preoperatively The patient's cardiovascular status is consistent with or improved from baseline levels established preoperatively The patient demonstrates and/or reports adequate pain control throughout the perioperative period The patient received appropriate medication(s), safely administered during the perioperative period Acuity Level PACU I FT Entry 1 Start Time 11/21/22 10:17:00 Stop Time 11/21/22 11:00:00 Acuity Level Acuity Level I Last Modified By: Justina Nassar RN 11/21/22 11:21:07 Finalized By: Justina Nassar RN Document Signatures Signed By: Justina Nassar RN 11/21/22 11:21 Normal [facility] Main OR PACU II Recordon Main OR PACU II Record PACU Phase II Document Type FT Summary Primary Physician: Martin Arango DPM Finalized Date/Time: 11/21/22 14:06:38 Pt. Name: KETURAH HERRERA/Sex: 1970 Female Med Rec #: [id number] Physician: Martin Arango DPM Financial #: [id number] Pt. Type: A Room/Bed: [facility] Admit/Disch: 11/21/22 07:20:01 - 11/21/22 12:55:00 Institution: [facility] PACU II FT Pre-Care Text: Identifies barriers to communication and implements measures to provide psychological support and determines knowledge level Develops individualized plan of care, and ensures continuity of care Maintains patient's dignity and privacy, and maintains patient confidentiality Identifies and reports philosophical, cultural, and spiritual beliefs and values Identifies individual values and wishes concerning care administers prescribed antibiotic therapy and immunizing agents as ordered, Evaluates postoperative tissue perfusion Implements thermoregulation measures, and monitors body temperature Evaluates postoperative respiratory status Evaluates postoperative cardiac status Evaluates postoperative neurological status Assesses pain control, collaborated in initiating patient-controlled analgesia and implements alternative methods of pain control Verifies allergies, administers prescribed medications and solutions, evaluates response to medications Entry 1 In PACU II 11/21/22 11:05:00 Discharge from PACU 11/21/22 12:55:00 II Outcomes Met? Yes Last Modified By: Luana Carty 11/21/22 14:04:03 Post-Care Text: The patient demonstrates knowledge of the expected response to the operative or invasive procedure The patient's care is consistent with the individualized perioperative plan of care The patient's right to privacy is maintained The patient's value system, lifestyle, ethnicity, and culture are considered, respected, and incorporated into the perioperative plan of care The patient participates in decisions affecting his or her perioperative plan of care. The patient is free from signs and symptoms of infection The patient has wound/tissue perfusion consistent with or improved from baseline levels established preoperatively The patient is at or returning to normothermia at the conclusion of the immediate postoperative period The patient's respiratory function is consistent with or improved from baseline levels established preoperatively The patient's cardiovascular status is consistent with or improved from baseline levels established preoperatively The patient's neurological status is consistent with or improved from baseline levels established preoperatively The patient demonstrates and/or reports adequate pain control throughout the perioperative period The patient received appropriate medication(s), safely administered during the perioperative period Finalized By: Luana Carty Document Signatures Signed By: Luana Carty 11/21/22 14:06 [facility] Main OR Preoperative Recordo n 11-21-2022 Main OR Preoperative Record PreOp Document Type FT Summary Primary Physician: Martin Arango DPM Finalized Date/Time: 11/21/22 09:31:23 Pt. Name: KETURAH HERRERA /Sex: 1970 Female Med Rec #: [id number] Physician: Martin Arango DPM Financial #: [id number] Pt. Type: A Room/Bed: [facility] Admit/Disch: 11/21/22 07:20:01 - Institution: Case Times PreOp FT Pre-Care Text: Verifies consent for planned procedure, identifies individual values and wishes concerning care, includes family members in perioperative teaching Entry 1 Patient Times. In Pre Surgery 11/21/22 07:25:00 Out Pre Surgery 11/21/22 09:06:00 Outcomes Met? Yes Last Modified By: Radha Cannon RN 11/21/22 09:31:19 Post-Care Text: The patient participates in decisions affecting his or her perioperative plan of care Finalized By: Radha Cannon RN Document Signatures Signed By: Radha Cannon RN 11/21/22 09:31 Normal [facility] Monitor Recordon 11-21-2022 Monitor Record [id number]#1.00CD :127 Normal [facility] Monitor Record [id number]#[id number] :127 Normal [facility] Outpatient Surgery Discharge Instructionon 11-21-2022 Outpatient Surgery Discharge Instruction [address] [address] Patient Discharge Instructions PERSON INFORMATION Name: KETURAH HERRERA Date of : 1970 Current Date: 11/21/2022 11:26:17 PHYSICIANS Admitting Physician: Martin Arango DPM Discharge Diagnosis: KETURAH HERRERA has been given the following list of follow-up instructions, prescriptions, and patient education materials: IF UNABLE TO CONTACT YOUR PHYSICIAN AND YOU FEEL IT IS AN EMERGENCY, GO TO THE NEAREST EMERGENCY ROOM OR CALL 911 SHARON Guadarrama TAMMIE, have received the attached patient education materials/instructions and have verbalized understanding: May we do a follow up call? Yes No I was present when discharge instructions were given Patient Signature Date Clinican/Nurse Signature Date Follow up: Type Location Start [facility] Follow Up [facility] 12/10/2022 2:40 PM 12/10/2022 3:00 PM Confirmed Surgery [facility] 01/17/2023 9:50 AM 01/17/2023 10:05 AM Confirmed URO Office Visit [facility] 01/30/2023 1:20 PM 01/30/2023 1:35 PM Confirmed Pharmacy Information: You may receive a survey from [facility] asking you to rate your care experience. Your feedback is important and will help us understand what we do well and how we can improve the quality of care we provide to you, your loved ones and our community. It?s an honor to serve you. Thank you for choosing [facility] HERE ARE THE MEDICATION CHANGES THAT OCCURRED DURING YOUR HOSPITAL STAY Medications to Continue with No Changes Other Medications albuterol (Ventolin HFA 90 mcg/inh Aerosol) 2 Puffs Inhalation 4 times a day as needed Shortness of breath or wheezing. alprazolam (Xanax) 0.5 Milligram By Mouth 3 times a day. aripiprazole (Abilify) 15 Milligram By Mouth every day., Bipolar atorvastatin (Lipitor 40 mg Tab) 2 Tablets By Mouth at bedtime. benztropine (benztropine 0.5 mg oral tablet) 1 Tablets By Mouth every day., tremers bifidobacterium infantis (Align 4 mg oral capsule) 1 Capsules By Mouth every day for 28 Days. Refills: 0. calcium-vitamin D (Calcium 600+D) 600 / 400 mg By Mouth every day. carvedilol (carvedilol 25 mg Tab) 1 Tablets By Mouth 2 times a day for 90 Days. Refills: 3. cetirizine (Zyrtec) 10 Milligram By Mouth every day. ergocalciferol (Vitamin D 50,000 intl units (1.25 mg) oral capsule) 1 Capsules By Mouth Saturday. famotidine (Pepcid 20 mg Tab) 1 Tablets By Mouth once a day (at bedtime) for 90 Days. Refills: 0. fremanezumab (Ajovy Autoinjector 225 mg/1.5 mL subcutaneous solution) 225 Milligram Subcutaneous once a month. furosemide (Lasix) 20 Milligram By Mouth every day. hydrOXYzine 50 Milligram By Mouth 4 times a day. loperamide (Imodium 2 mg oral capsule) 1 Capsules By Mouth every 6 hours as needed as needed for loose stool for 30 Days. not to exceed 8 capsules, or 16 mg, in 24 hours. Refills: 0. loperamide (Imodium A-D 2 mg oral tablet) 2 mg Oral BID and 2mg after each loose stool; as needed Diarrhea. Refills: 6. meclizine 25 Milligram By Mouth 4 times a day as needed Dizziness. montelukast (montelukast 10 mg Tab) 1 Tablets By Mouth every day. naratriptan (naratriptan 2.5 mg Tab) 1 Tablets By Mouth As Directed as needed Migraine headache. nortriptyline (nortriptyline 25 mg Cap) TAKE ONE CAPSULE BY MOUTH IN THE MORNING AND TAKE THREE CAPSULES AT BEDTIME. Oxygen (Oxygen - for Home) 3 Liter/minute Nasal Cannula every day. Oxygen - Continuous or Nocturnal Diagnosis: Portable 02 for physician visits, oxygen conservation. pantoprazole (Pantoprazole [address] Tab) 1 Tablets By Mouth every day for 90 Days. Refills: 0. pilocarpine (pilocarpine 5 mg Tab) TAKE 1 TABLET BY MOUTH THREE TIMES DAILY.. polyethylene glycol 3350 with electrolytes (NuLYTELY Aquino oral powder for reconstitution) 240 mL Oral Daily. Refills: 0. pramipexole (Mirapex 0.5 mg) 1.5 Milligram By Mouth 3 times a day., Takes at 1000, 1500, 2200 for Restless Leg rimegepant (Nurtec ODT) 75 Milligram By Mouth every 24 hours as needed as needed for migraine headache. solifenacin (Vesicare 10 mg Tab) 1 Tablets By Mouth every day. Refills: 5. thiamine (Vitamin B1 100 mg Tab) 1 Tablets By Mouth every day. PATIENT EDUCATION INFORMATION Instructions: [place], [place] Martin Arango DPM, FACJONATHAN POST OPERATIVE INSTRUCTIONS Keep bandage clean and dry and DO NOT REMOVE Keep foot elevated on white foam pillow Apply cryocuff to top o (more content not included)... Normal [facility] Patient Education - Texton 0 11-21-2022 Patient Education - Text [place], [place] Martin Arango DPM, FACFAS POST OPERATIVE INSTRUCTIONS Keep bandage clean and dry and DO NOT REMOVE Keep foot elevated on white foam pillow Apply cryocuff to top of ankle, one hour on one hour off, until first office visit Non weight bearing on operative foot. Take pain medications as directed Do not be alarmed if you notice slight bleeding on the bandage, this is normal Resume regular diet. Call the office if you develop: persistent bleeding temperature above 100 degrees persistent vomiting calf pain or shortness of breath redness or pus at operative site Call the office tomorrow for 1st post-operative dressing change appointment. If you have any problems or questions, feel free to call the doctor at: [phone] or [phone] Arango paged. ____ Patient signature Date ____ Dr.Nicholas Harsh DPM, FACFAS Date Revised: 09-26 [facility] Progress Note-Physicianon Progress Note-Physician Patient: KETURAH HERRERA Age: 52 years Sex: Female : 1970 Associated Diagnoses: None Author: Brody Leon DO Postoperative Information Postoperative disposition: Postoperative disposition: To PACU. Anesthetic utilized: General. Assessment Anesthetic outcome No anesthetic complications noted. Review / Management Condition: Stable. [facility] Comment on above: Result Comment: Elec tronically Signed By: Brody Leon DO\.br\Date and Time Signed: 11/21/22 15:07 EDT Progress Note-Physician Patient: KETURAH HERRERA Age: 52 years Sex: Female : 1970 Associated Diagnoses: None Author: Martin Arango DPM Postoperative Information Procedure: right 3rd metatarsal daphne osteotomy with screw fixation with right 2nd digit PIPJ arthrodesis with screw fixation and right 3rd and 4th digit PIPJ arthroplasties Date/ Time: 11/21/2022 10:17:00 Preoperative Diagnosis: right 3rd metatarsal deformity with right 2,3,4 digital deformities. Postoperative Diagnosis: guicho. Performed by: Martin Arango DPM. Specimens Removed: bone 2,3,4 digits proximal phalanx heads. Estimated Blood Loss: 0 ml. Complications: None. [facility] Comment on above: Result Comment: Elec tronically Signed By: Martin Arango DPM.rosi\Date and Time Signed: 11/21/22 10:18 EDT Progress Note-Physician Patient: KETURAH HERRERA Age: 52 years Sex: Female : 1970 Associated Diagnoses: None Author: Brody Leon DO Review of Systems Cardiovascular: Hypertension, Prior CA. Beta Laz taken in last 24 hours: Taken this AM. Respiratory: Smoker, COPD, Sleep apnea. Neurologic: Alert and oriented X4. Gastrointestinal: GERD. Genitourinary: Negative. Endocrine: Diabetes - non-insulin dependent. Health Status Allergies: Allergies reviewed. Problem list: Problem list reviewed. Histories Past Medical History: Keturah is a 52 year old female patient here today for foot surgery. She has a past medical history significant for CAD, CA in 2004. Cardiac Cleared her for surgery with a low risk for non cardiac surgery. She has HTN, HLD, CELINE, COPD, current smoker, O2 dependence, DM2. Physical Examination Airway: Mallampati classification: II (soft palate, fauces, uvula visible). Mouth: Dentures ( Upper and lower dentures ), Tongue ( Within normal limits ). Temporomandibular joint mobility: Good. Neck: Supple, Non-tender. Thyromental Distance: Normal. Respiratory: Respirations are non-labored, No cough. Breath sounds: Bilateral. Cardiovascular: Regular rhythm. Neurologic: Alert, Oriented. Reviewed Results: Vital Signs(Date Range: 11/20/2022 0:00 EDT - 11/21/2022 8:30 EDT) HENT: Normocephalic. Review / Management Condition: Stable. Sock Knitter: Reveals a Normal sinus rhythm. Plan [place] [employer]#(ASA) physical status classification: Class III. Anesthetic Preoperative Plan Anesthesia: General. . Anesthetic plan, risks, benefits, and alternatives discussed with the patient and/or family. Risks discussed: nausea, vomiting, headache, sore throat, aspiration, airway. Patient verbalized understanding. Informed consent was given. Consent was signed by the patient. Pamela [facility] Comment on above: Result Comment: Elec tronically Signed By: Brody Leon DO\.br\Date and Time Signed: 11/21/22 08:32 EDT Coding Summary.on 11-20-2022 Coding Summary. CD:[id number] Ww+P GhlYWQ+US4GDNGfD78njQSmi E8sN6UQGRkHMjpuQBKAVWlBI jBicrRwBE4ntGEwBTJk IC8+ZA8tHJRsJdvtqDBnu0N8 pJO2H39lnr0sSAmjkJI0ZFEy NkDzixtrc4zpeGa8ECdgWgxu OyBt BFHzqN98JMQ8eZ01To51mWCx uHDsk9kmtIe9ZtIqKFInTFK6 pBwoRYbil8VoQIOlJ24bmGZc c2U6 QVAshEtrrFDsTiDgvKS1fO0z JUkblweek3mqlnfjOwg1ri73 jLQpx9C1dWS1B0XdxiS0EXAt bGQg UmbeeJCCjV8yplfvd0envpus EcRnZDImJYr3NJi6LGHsjFul FjKbFV51HRM1ADArhfJkT7Wt LWFs oPkdGtT7x0S0Ef2VD0AFBlim N4JBHOAMTTceaNZ+AS32ba36 O8XuXzevUyy6UJWsAGH3lTT0 aD0n LIVhKGaml0R3sVN3L0DsojFi ca5vj9osZHZgYFcjB94dxEEq k6Y6FCJxlDO5BJFhrXlzXrVm aG93 Oyc+METhiJppd1JkTuymr5xa h4ypcTk8CmqfLCCigiMfiRcd QQW1n2CqJn7yUOMxaJD9yCC6 aD0i BsNdBrC0DMvzY600MoTfaFNz WvieG47tK6RqqUU+PHRyPjx0 KMQjaAsuAX9aJ0VlMKAsbzgg bGVm pYmrGE7wFLVvhntqAMEwaJ7w OBCgO8f8BcBfDsO8VOusP6Rf VPLjvlouVn07yB1eOcXoTzU9 MGlu I2HvvxZ2TVUpdRNhJCtnYIY6 H86sc4Q7LZBvAEUcGSI0oLK7 oW9epCmspouwaLGprFmoeoUt dGlj XNndSHkdA622ZEEbhVxnDuGx ZGluZyBEYXRlOiAgMDQvMDQv MjAyMzwvdGQ+NYMqTMV1qUmh PSAn vNCqUZziRt7naYasvLojTV4y MLQqtyanDZPlnJ3tBXAxdXQm aSpuGN2xTQNephplr954OdWq MHB0 RRTapISvU6GysJ7iWeRcUJQi YRToG3TnzWSgOVzgO351IObd SlY9TJTekaEqL0CiVEAmjZjq OiB0 h6E9Oy9Tz6TccimuH3CgrZJp QpJcTtmwKWp0U5RbHvlgzEQ+ IT67TEScLO85QVu6ZDM9gRae PSdi ONWvR4XbaA2lScUvQWXlNTDy Oyc+PHRhYmxlIHdpZHRoPScx HSZxDvSbeTibCU4bZc9nFBFx LWNv aPtmeWMvTlDnn1yhJOPbPKlw BZ0mtQmwE2QznUA0LFQus4f3 Nl90Y49bM1SvbAK+PGNvbCB3 aWR0 wW6rZjKlGlW7GHlxC718CjHi uPSfXuwrn1sfm5gvzXh4SxM6 MSQrklQysTarKWX8f2AtNm81 Y29s IHdpZHRoPSIxNSUiIHZhbGln mh8wsZ8oCs4+RDUjxDE6pHA5 jT0fEfVnIxI4FDtkO422UeGg cCIv Yatpq4jcy2hcqVy9YxLaUINj hvAwqKkuEQL3p8NbZa14C1Rs mFzpq6MkMkn9da08pVOjp6N7 bGU9 L7KqTHRjnpqrnKRmlFhfAM7f SNPhthsnQDCpeZ0xLHDyT5v6 BjNlTeA5ZJvqX2XcpnY6BUYo bGQg WVMlfYLXfR5oxtdvj6wmqloz HfYuHKYaXKg7MYj7ZEYgzNul BoYbPLD4TcH8ELV7pVGmeV9i bGln niobxP0sKit+QEL6dOPhnDUG EQ7bLsdpsWX+JINaFLJ4fSpd JXtiIWEprU5rREIoW4i0GqMe LjA1 QZnnV4VmqiT3QKCbnDWnSWYh sPZXyP3ubxtwp0uezhfuNoJj GTAzXMh1JGi5YCAgnFcfAcKt ZWZ0 NpE9YZI2cXVhxX6jlWczjciq eZ6nTgn+EawsuLewAGF2RYd1 E0IoZhh5FMYykUxkMZ9leYXj ZGlu Xo5atGsfpUweAX2uYKHiwjsz p900OoUvi8pgNDVnhFUgFPmn LKW4N98sn9G5RNDlQSZqPQI6 dGV4 vD6unImakqqtcUZloHgfdrGo mZajFHjnXAtsR699JVAruFfo JmQkCOp3M2TjJut9GWWbzOgl ZT0n kRCaVEpgBl6vlIxsmNlvAM1f NPDdxmaac585FdLlw1eeEBIb gZKbZGndTXY8X88hh8Z0WPJh MDAw PGK9tSK9kA3mfUqrmvrlkOPl eYgnzzIxkHhwADrwEIbyU293 XAEfjHjmRpJniTa7Q2AxKye8 ZCBz fHytHP3naVZgJYgrGa6dxYsr nGwyMV2gSAHtoyvre617YaTe s7lyGHAtvRMfNQcfGDA1G26t b3I6 CJXwRTWwKAV6kDX1qZ9bbMja bjogbGVmdDsgdmVydGljYWwt NUxyP424RRDjqPhyCoEalGcp bnQg EXxrQBc9U9FgOimgdEA+PC90 TJDdZL25vSMbsYZdp7fquTy0 LiHiNSJcXSP3dHjbBIllb0Jd ZXIt C65qgSNhc9M4QPVxuEehjWPk XaHvyNT7aH5jABundraod2mm tynmLnhwh7odbe89iJ86H65m IHdp YZGmPYKwPPXuRYLkqCngcv1p kR8oXt7+TZYzcWR0hPP5nV0n JQAmTcI5WIwoG130OmNloDSz Pjxj a3tlz1ehaLo8HiV2OUWqqzSe cRhrSSZ4y7XuSm53F00yOQhc IOAaRQGrQLWfHGOroNvweb4y dG9w Ii8+OWXhhUX1sIZ8kC5jMrSq YbY0OJpuE722VcLwfTHrGege F40tG9KmkIL+OIGmMap0PJFm dHls YP0kkXWnPEspCi3zUOD5UqAh WnTtROqpM8BkEOMgeptnrnao rKO3CYBoOGFpyS26Ll7euBed MTBw zMXYnK8zfzylw6ktagbdWeKz SIGvLDr2YWn5TBAzfDabCkRv PKI4OhT8NCQ7nZPtfO4euYha bjog cO0mU2UsVAMuhagmFp61oP0r QvRpRsB3SYshNpm+UEFSSVNI NUFWJD0FPYW9V6AdIry4GRVg dHls IO5srAMlECbeZn3ifRaqcYqd IH7xURZxmklkSAFrpO9vPOSm wCXvzJruNS9bRDBuehgnk674 OiAx MGF9OSEnjXHlS3KmqL5rJgLm BITlQQRvK4IsnHWtFOxdV045 CFfzOrL0RNFvioWvW1KsXMGd aWdu EsK7n7Y7Ya3tWr9gTL2vSIht EL42BI30lTGem9J6tTP5Q0Rr YQVrtyscjmtjaZM4KVXkVMMf aW47 pRYiLGshJs6fy4K4j564ZMNb FDIfzG63Gk3zcTuzHCBrfISV hY2ucezom9havzazEiEcSGXj MDt0 DEz5KSPraCblPcGjCZF2HkP8 ESJ0cJIfnZ2ceQairutqjS7i Oyc+QLLyXTHfrkJ0Q0VhLbf9 ZCBz hSblFE7kxPJaTQoiDx6odLnx sRnnBK3fOYQkzqxdLBSbxV3e AZTlwJPsbTspQM5uOFEgmzyv b250 RmEfVEG2BEQoqKIlE4RunG7k FmVhNYDpCIWsC1LdpECiVJmj I580HDzwIbU3FDDdllDbU1Hf LWFs nAepSeE4n0O8Oc2DRT1faRO8 U6QtPpo7GITvpMsdZX7ykKNk UZdxBi5poDclmMjtPZ2fRPDa bjtw FWWmrZ9lTAUoqMTpuDdxGK0z XSRsenliq741ZxTbCAH6RHCg kCDqA9IccG9nMcDrMBVmCEPl O3Rl fHSoKMmnD561HCbmQlK0LRNi wmAqN4XqNLBkoKbzChI7a7E5 Ql4ZmHKtGAEyWV87PG85WM59 L3Ry PjwvdGFibGU+PHRhYmxlIHdp DYKaHZvqVXZsMsRpxPqsEW2t Yx0aMWHjHLRubCuquQNeIiYr b2xs DECcHLrpXO3roKlxA2TjkYX5 ULVyp5f5Bj67P90mK3DwzGR+ IBCsnQX9pZU4eN4uZlFfWcD1 YWxp C757XaSvtFFnDfdnz1gfr4vr fJn4AlMfPQWghbTkjCgxTHG3 j9TfCf80S38oXObsMGUvKMOv MCUi JZRcxMvidu1uiN4qSr3+PGNv lJP1zNL8lA6aNdOhYbK2LLwu K892BfGbcHDgAfyiV22dI3Gr dXA+ LAIuXdk3UPCtdRlfPV7hvNBb MYoaJr1lRNR1OfJsLyXfOQtu Q0XyCVLvtsbkvkzrgPI1JHGb MDUw kP09Wx8kjOtxNq3jWWOdBNH4 RTCfbVNgR6AvrD2ePcGzLFCe KWImS4RtyNUoTOyeI955KOcn ZnQ7 VKClffLkU7YjNUPjiWcsCyZ5 q4Y2Kl0BsTkivNRrCE0yKsOl EIe9K9KdHfo4ILAmnUxtMJ0g cGFk DXplBu1txOvxeFwyTH3lLKQw pmjra960UpItf3mdNDHjvDYz UUjvEWY7J60xl7Z8FFCpWWIg MDA7 jDZ4pC7yaWefqqnatLIdjYae ypHqsAjePEkxLTcnZ948BKCt xTueJlZJQeb8Z4ZaIlw3OMRf dHls QP2fvRNcRTcwBi4xfJxvdTcd XC1jDCCofbasv149VlDco7lj VQYifMYoBOqhGHL6C44hx1Q0 ICMw PUEdKTI6wBC8yN8dkNyndqzm bGVmdDsgdmVydGljYWwtYWxp K871IJXjvNktKs8BUjm4I0Jw Pjx0 UWTenNigQJ2wlKNbMXukJj5p jMxtpOjeXB9eRAPjqlszk757 KbJlo5ykDJSsbBEpPUwaYPE7 Y29s a6M1ABLhCMMqAUS9cEJ0xB8z bGlnbjogbGVmdDsgdmVydGlj MXtzZAyoG952WLNtdMvzYeOv eWVy OjwvdGQ+AT93kw60T8FbGacz Zha4LNYmWBO8uVS8nF9fZVVm ABang2J3tPS9Q6YniyRfcb4y b2xs YXBzZTog (more content not included)... Normal [facility] Consent for Procedure/Surger yon 11-20-2022 Consent for Procedure/Surgery [id number] :[id number] Normal [facility] Physician Orderon 11-20-2022 Physician Order [id number] :[id number] Normal [facility] BUNon 11-16-2022 Urea nitrogen [Mass/Vol] 7 mg/dL Normal 5-21 [facility] Comment on above: Performed By: #### 2 857349, 6476287, 0426240, 2373864, 35975723, 1089074 ####[facility] [address] [place] [address] CBC w/Indiceson 11-16-2022 Erythrocyte distribution width (RBC) [Ratio] 20.2 % High 10.9-14.2 [facility] Comment on above: Performed By: #### 2 969186, 2786342, 0291171, 7093075, [id number], 5950142 ####[facility] [address] [place] [address] Hematocrit (Bld) [Volume fraction] 41.6 % Normal 34.0-46.0 [facility] Comment on above: Performed By: #### 2 593209, 9457261, 6198639, 4007525, 10751320, 8120610 ####[facility] [address] [place] [address] Hemoglobin (Bld) [Mass/Vol] 13.4 g/dL Normal 12.0-16.0 [facility] Comment on above: Performed By: #### 2 299033, 7273374, 0956127, 4094992, 40631052, 0028463 ####[facility] [address] [place] [address] MCH (RBC) [Entitic mass] 28.2 pg Normal 27.0-34.0 [facility] Comment on above: Performed By: #### 2 514920, 6774830, 7083597, 8538962, 64156997, 9550425 ####[address] [place] [address] MCHC (RBC) [Mass/Vol] 32.1 g/dL Normal 31.4-36.0 [facility] Comment on above: Performed By: #### 2 045143, 1577553, 1603106, 5908115, 07439085, 6857137 ####[address] [address] MCV (RBC) [Entitic vol] 87.7 fL Normal 80.0-100.0 [facility] Comment on above: Performed By: #### 2 485032, 1387456, 0538073, 4306554, 67646375, 4997433 ####[address] [place] [address] Platelet mean volume (Bld) [Entitic vol] 8.3 fL Normal 6.4-10.8 [facility] Comment on above: Performed By: #### 2 329749, 4643857, 9138545, 2227029, 66360716, 5583655 ####[address] [place] [address] Platelets (Bld) [#/Vol] 242.0 E9/L Normal 150.0-500.0 [facility] Comment on above: Performed By: #### 2 027238, 2930471, 9865912, 7251433, 69161861, 0288350 ####[address] [address] RBC (Bld) [#/Vol] 4.8 E12/L Normal 4.3-5.9 [facility] Comment on above: Performed By: #### 2 123838, 6320348, 0296425, 0780323, 26835368, 8762076 ####[facility] [address] [place] [address] WBC corrected for nucl RBC Auto (Bld) [#/Vol] 9.8 E9/L Normal 4.0-11.0 [facility] Comment on above: Performed By: #### 2 888023, 9134209, 7080407, 6316619, 64439273, 4979919 ####[facility] [address] [place] [address] Coding Summary.on 11-16-2022 Coding Summary. CD:[id number] Ww+P GhlYWQ+KK6TAQEhY35cyUTmi X3jV5SIBOuGXmucTUFBXPyCH aRggvXlBS9xqNVmMBNp IC8+GB4vVIFkFkaknLHbe2E3 jNB4V80zht8iDBxpdMT8OHLb IdMxiwlgy4twdGh2RPhqCwwd OyBt GULabG16VAH7bA59Su46tDSw xIFvm5cxvTj4ZwBqCAEwDUD3 iZjpWXpyw0QqHMKeZ78feYYg c2U6 RBNwaFeeiVHyWyObeWW4jX5g JXzszyucg1upldzwDxf9mq69 yPWxg5Y7vRT6A8PducS2RJDq bGQg KiozmGMYhO1bdukzu7jyebff HfLbPWQyHJm3GVx7SORfaYbj CwZmUC64IEM9QXJtyjJoP3Kj LWFs jAbfTyM9c8P3Ok2OX4LAFsxn U9LLSWWAPPefvYL+JJ39ux43 Y6AjKkexLwv3VBPrCGH2tPD9 aD0n FIPoXHybm9B1bUQ0N2FkizNd rc9xz7jqUGFwSSkdH29nzMLs b9Z7VVAaqYT7PBBiwRyuGlTn aG93 Oyc+QOOdiLxty0DwDxhuw2zw q8fixNz1UxnuZSNsgbOdnDbc EVK8n2SaLk9bCQPzpVF5eDS1 aD0i HcDqAwF0QShoH365HzNouVSg GmklV54hB5BzjPM+PHRyPjx0 OTPjoSunVF3dT4KkFYNhuojm bGVm dVucPA4uMKRcazanMVQjrE5t HTXlL5w3WdCoBcZ4RLcdX8Ps SRHlbaufOt90xA1mMbZlXfV1 MGlu Q4DiqlW7RYKfpHOzNBuaWWI3 O78sq3T6MOGxCTHaPTJ4cZP8 yT1uzUnezadggWJvxTojphJq dGlj XUasUWeuY420DEBluXglLfVm ZGluZyBEYXRlOiAgMDMvMzEv MjAyMzwvdGQ+VIRwQKH0kKur PSAn jGYtOSfhRh0ehBwuuGvbLX3c SDIndfonSPOosR7wZJGayZMj wFpjXO2sHFSzenyio964BtOw MHB0 MCKtiBBkS6XbdF7yNtYgTXUr COLoB0PxmHUrJQfwY912ETdj FjI2QNZxzsVzY9TlQTGapSwf OiB0 n8I1Ls7Iu2DqybkwP8DtmVUz PpKdMihgZHe7W3XtOarkbYG+ XC33NDJhNM95GWp7BXX3qAod PSdi PJVxA8AlrW9cGsJvIAOeAJGd Oyc+PHRhYmxlIHdpZHRoPScx SSJiGmIwuZowRY7lMb9hMNNx LWNv pIviuYAvExBiz2ikDTJyZNhf BD4spDbzU5IxzFO7AIQle1f1 Ek64B42cF0RmyKQ+PGNvbCB3 aWR0 fD7dRoTzQaZ4ZRiwX291TvIk vTPhQykns0ggq4jegPu3MlT9 UOXwevZgkIadTTY8o9ZvSy72 Y29s IHdpZHRoPSIxNSUiIHZhbGln oy7uqY8yVk7+BPIvzSU7mFF6 hW8eLvRpGwT7IHioB236FtKx cCIv Nhbdj7lhr8kpkKc2KwDcHBEw faTgjRwxLML9n0XmAy61V0Um mZloy2FbHus1nr34kJHgm1G6 bGU9 L4KtDHKchqoguTTazRjiGK6t ELGruzrzRXJtmF8yQBDoS7h1 IzPbQmM5QIebX4ZppyU2CQUu bGQg HNPexQVZrU5iuuugv6edtgcw WyCzUWAoEGy3CFy7CBVddTws OeBqFCT7KdG3QDO2aZDkmK3x bGln zdzqjC1tUkz+DPT8jPAqiNSI MU2iPraluJY+JUMwNFI2bHog DZrwMYFjtK1cHZDfN4i0LpQe LjA1 WMixK6BpbtJ5NNYuyYHuJHRs zRJXeR8wxmvrs3wxarpmIjLl PNFuYHl5FCe2AMUtqUocXuBe ZWZ0 RbL2LMF0pPEprX4dqOyflrqx qG5uPhd+OhtlbMzcVKO9RJs4 O7KjTdx6UKNygCslWY2cbGWb ZGlu Lm5llWdtvQsmUS5jELTbyqbj s891IjVhx8vpEQWvrQKgLFvy YPF3P54me9Y4KGYjXXRrKTS3 dGV4 qW3maPtxvkuntUPvvOhqtlBa oAukARovQYllG282XRUmxZlt JgSdQSr2T9XaTur7KYOygIob ZT0n zCZrBYvdVa2rlYbfbYyaCX4k BAIpnwmtu846BhFxa1yrSNIj vTZjBQhpXUM8Z70ye1G3SBBy MDAw SGU5mDT4vI5moDmybebviGBm bZhtugYokKarYOviOIdsY616 DORauWanAiCfoXu6H4NdBvy5 ZCBz aDwvHH5ooHBxQEwuBt3dsCwm lCnuAA1dRAHgobhpi420GtQp u8fnBZOcaTCfPOjdSPU9H83i b3I6 INPdNMNlAUK4wLB1uZ1iwFpr bjogbGVmdDsgdmVydGljYWwt CTbtZ020MEXglDkpDkEyeSyu bnQg IJefYTf4Y0IdWtfitAC+PC90 MDKmUN66mWMsuAVhn3wedVv7 MgJkDMEsWJX5cQlnHDpzp0Yw ZXIt C42jnLKly9G1UWErpZvnvVKf QeSyrQB0xK6yQXiwgcgyk0rr ndxtThpur2zbnm36cN64I66z IHdp SPUmAGSqGDTeQBGseHobbj8m lS9gPd0+LYKogDA0cGL8xS1m LDLrLwK1AUccT820LqNscWDr Pjxj u1qtm2yeyDg7KaA6ZWLlnrTs pQjsKXX5t8UyEe79X34zBFql SQOfTSFpGAPdZFFvlZowky0l dG9w Ii8+RXJbsIW6lYA4kR8yNqPl FcG6PTsaR953MlYpnUGfTmiy I87gD7QcoNF+VCUoNxi0RGOv dHls AG8spVIoGWgpYy8xVYG9WpIq WoVeFYzkG8HxTHKfvtsxrtwh sFQ8LJGuIQDwcY99Yi9xwRkd MTBw mYJWrE0ubvvkj9xwvonbCiTe MEHfRMz6JRb8SLGwlIgbWkWb NQE8HbJ3KZZ3oIWwmA5nqLpa bjog fR0hP5AgXPXdfsxfXw53wW4f WrBuVwY5KZguYjc+UEFSSVNI OVEBGI2JKVV7J4WkOfu3MQPs dHls FA7ogBFkANadQq9flYxdwHmj WV2fKUZkwmguICXasD9jDRLy mVYifWtaSB0rZZEgrqubc821 OiAx UGV4QQCfiYKlX4WfsE9nHtRa AEThINAiZ2DmmLFdUUvaA511 SWloQuW0WRPgfsIjZ7GbUDMh aWdu IfR5x8N8Ic3rTt7sRS3eXOdn GE00XC43aMAoh1X3fSV6O7Rj EZZybbpjdveohRC1CRFvQFTw aW47 tALuQOsoTk8pe1H6c412DJVv YZLfwK48Rw4kjJelIFMzcVES fH2qcomle9zhvqkyKnCfINHj MDt0 FDx7EZQndNpdLzXnROI7CbK6 FIC9iUUhwX1tcWzsuronfJ5w Oyc+NXOwBHGqfzA0I7VhPui8 ZCBz zQquNU1iwCLxVHclNw4luQah pMkxCQ4gYQCmwpzzAGMvlY2l HFBldAWmtWcjBE4nOEOvfnxu b250 MzLxNUI9FICgwNJsG4DdgU2h TiZyZVUjWAOtI4GqmPKxKZlp O163MLjbNlB1XWBsumWkB6Sy LWFs bEayLnR3x9Q2Ry6XSM0nnDM0 F5UpQal8MFKziLwnCJ4voJTv WLrjOy4jcAutvDnhJH3tGZYv bjtw FXLyiY0oZHDimDEwrWflSN1q CLJhpcoil263QhKfCVW8GCEx sIIxI4QmpL6hNkMwPFRrLSXx O3Rl xNMaAOhyN529KXlnAkT3VJIz rjYiJ1LoTGBhhRicLlE8k4H9 Ly3GvANqGNVgPX69GT45LU38 L3Ry PjwvdGFibGU+PHRhYmxlIHdp WECyHBemLUHrHnGawEkuBU7y Db6vJIHjUREmnIuxiOMhSaVe b2xs KVStAEuwWA9ubFwzC6EsfYT5 UVNya9h3Md84J58qT6UfaVI+ NYXhrVW9qRA2kU2fNlVfUuV2 YWxp G161KkGqzJVxQuebk8zpx9bo jAv5OyTfHDCfdiNkeAgzDHH6 x6UbTh81U69cODiqCAEkBSZw MCUi FTFrgZfwza9woS9tSa1+PGNv mRC2zSS6yC9mJyEwMyY8ZUch R255QwXjkDHnFrukS45uI1Pk dXA+ FJPtTtv5CAZhkMcnXR1ruGNm MSuuQy4hZDH1CvAyCpWsDNlj W1IoFGQsxtdhsjkyaRI9ECOu MDUw rF59Ar0snHpvLi8rDSXqXNV2 ETHuyKMgU7SacW4bNuGdVBQs AAHtK8DqbXOyUOlbV774RLca ZnQ7 PVBqywRjS9ZsBBOspOazTjF9 m1N3Ws7ZyAanbAOjFU2iHrGt FRc5I0PcGcb4WULtwUyxXG8t cGFk YTmhPg6obVvzcJtnJY0vMEHn geiqa482QvPxe1svWARycEMt HZoyHKM6C76iq3C5PPPuYCQy MDA7 mOT5iP0ceGhozahqoSUudXor vtMmwQrjAQhhMXamU371EDGu qCgbIsGCUbz2E9NaUhu5XRVa dHls EU1wzPJrUFmpAm9afAkyaSvg VZ7nHGKintuvg401NlGca9bg LFFlzDHwPEyzBNI9Z73qb2N9 ICMw PUGdOIR2xNS4oL0egNzagruj bGVmdDsgdmVydGljYWwtYWxp P008ORJbzTsrHb6ZNwu9E7Ke Pjx0 SCVrqDslST8ijBPtDOatJq2l jDtuhUadNK0jMACnhshhr200 UzCbb0xoPBBsnMFoDLpeFIW8 Y29s r0A1ICUdJVArSAY1zAM2hU3h bGlnbjogbGVmdDsgdmVydGlj AQqpRVroE914DGAaiPomUmTw eWVy OjwvdGQ+WF93km61P7EdXpzf Jlk6JCMpXGK6pCA5bI5oIGCd TZsmf5Z8hSK8C7GzdoFrmr7s b2xs YXBzZTog (more content not included)... Normal [facility] Consent for Treatmenton 10-19 Consent for Treatment [id number]: 127 Normal [facility] Creatinineon 11-16-2022 Creatinine [Mass/Vol] 1.0 mg/dL Normal 0.5-1.3 [facility] Comment on above: Performed By: #### 2 [id number], [id number], 2683027, 5156346, [id number], [id number] ####[facility] [address] [place] [address] Glucoseon 11-16-2022 Glucose [Mass/Vol] 104 mg/dL Normal 55-199 [facility] Comment on above: Performed By: #### 2 676792, 4076395, 1086507, 6679029, 10770752, [id number] ####[facility] [address] [place] [address] Lyteson 11-16-2022 Anion gap [Moles/Vol] 13 mmol/L Normal 6-16 [facility] Comment on above: Performed By: #### 2 010751, 5771456, 5072930, 7709250, 11854403, 9393882 ####[facility] [address] [place] [address] Chloride [Moles/Vol] 99 mmol/L Low 101-111 [facility] Comment on above: Performed By: #### 2 760952, 1830065, 4455268, 4107722, [id number], 6772883 ####[facility] [address] [place] [address] CO2 [Moles/Vol] 29 mmol/L Normal 21-31 [facility] Comment on above: Performed By: #### 2 803767, 9582514, 8659532, 7855488, [id number], 6200442 ####[facility] [address] [place] [address] Potassium [Moles/Vol] 3.8 mmol/L Normal 3.5-5.3 [facility] Comment on above: Performed By: #### 2 860954, 8907318, 4286441, 9198619, 99771902, 1869438 ####[facility] [address] [place] [address] Sodium [Moles/Vol] 137 mmol/L Normal 135-145 [facility] Comment on above: Performed By: #### 2 767650, 5951064, 6537688, 7142998, [id number], 4066478 ####[facility] [address] [place] [address] XR Chest 2 Viewson 3 XR Chest 2 Views Exam Date/Time: 11/16/2022 12:04 EDT Reason for Exam: P.A.T. Report IMPRESSION: FINDINGS CONSISTENT WITH EMPHYSEMATOUS CHANGES. NO EVIDENCE OF ACUTE CHEST DISEASE. CLINICAL HISTORY: P.A.T.. Smoker. Some shortness of breath. COMPARISON: 10/25/2021. COMMENT: The heart is normal in size. The mediastinum is unremarkable. There are small areas of hyperlucency in the lungs, consistent with emphysematous changes. No consolidated airspace opacification nor pleural effusion is evident. No significant change is noted when compared to the prior exam. Ordering Provider: Chan Hwang FINAL REPORT Dictated: 11/16/2022 3:26 pm Sami Bermeo M.D. Signed (Electronic Signature): 11/16/2022 3:26 pm Signed by: Sami Bermeo M.D. Transcribed by: MERLE Technologist: ROSITA Technical Comments Radiation Dose: Ka,r in mGy = na DAP = na Normal [facility] eGFRon 11-16-2022 GFR/1.73 sq M.predicted among blacks MDRD (S/P/Bld) [Vol rate/Area] mL/min/{1.73_m2} Normal >=59 [facility] Comment on above: Order Comment: Order added by Discern Expert. Result Comment: eGFR is race adjusted. AA=. Performed By: #### 2 817794, 2243513, 8005771, 6232023, [id number], [id number] ####[facility] [address] [place] [address] GFR/1.73 sq M.predicted among non-blacks MDRD (S/P/Bld) [Vol rate/Area] 58 mL/min/1.73 m2 Low >=59 [facility] Comment on above: Order Comment: Order added by Discern Expert. Result Comment: Head Setter stefan kidney disease could be indicated at eGFR's of less than 60 mL/min/1.73m2. Kidney failure is indicated at less than 15 mL/min/1.73m2. Performed By: #### 2 139473, 4378451, 9325779, 4281041, [id number], 5448361 ####[facility] [address] [place] [address] Consent for Treatmenton 10-18 Consent for Treatment [id number]: 127 Normal [facility] Heart and Vascular Office/Cl inic Noteon 11-13-2022 Heart and Vascular Office/Clinic Note Chief Complaint patient here for cardiac clearance for upcoming foot surgery History of Present Illness Keturah Herrera is a 52-year-old female patient of Dr. Solis with past medical history positive for hypertension, hyperlipidemia, GERD, esophageal spasms. She has had issues with chest discomfort and had negative left heart cath in February [address] Beltran. She has normal LV function, no significant valve disease. She is on beta-laz for management of her blood pressure as well as PVCs. She was recently seen by Dr. Solis and cleared for her upcoming foot surgery. She was placed on schedule today for cardiac clearance. She has no new cardiac complaints specifically denying any chest pain, palpitations. She is chronic shortness of breath and is on supplemental oxygen, there is no increase in her shortness of breath at rest or dyspnea exertion. No edema, abrupt weight gain, orthopnea, PND. No dizziness, near-syncope/syncope. Review of Systems PHQ Score Initial Depression Screen Score: 0 Constitutional: no fever, no chills, no weakness, no fatigue Respiratory: Positive, chronic, stable shortness of breath, no cough, no orthopnea, no wheezing Cardiovascular: no chest pain, no palpitations, no edema Neuro:no dizziness no light headed no syncope Additional ROS info: Except as noted in the above Review of Systems and in the History of Present Illness all other systems have been reviewed and are negative or noncontributory. Physical Exam Vitals & Measurements HR: 62(Peripheral) BP: 132/80 SpO2: 93% HT: 64 in HT: 163 cm WT: 78 kg WT: 171.6 lb BMI: 29.36 General: alert, no acute distress Neck: Supple, noJVD nocarotid bruit Cardiovascular: regular rate and rhythm, no murmur normal peripheral perfusion Respiratory: Lungs diminished, respirations non labored supplemental oxygen via nasal cannula Extremities:no edema Neurological: oriented x 4, LOC appropriate for age, sensation equal & normal bilaterally, speech normal Skin: Warm, dry, intact- no rash or concerning lesions Procedure [facility]- Dr Fragoso 03/03/20 CONCLUSIONS: 1. Essentially normal coronary arteriograms. 2. Noncardiac chest pain. [1] Cardiac Diagnostics (06/07/2021 14:15 EDT Echo Transthoracic Complete) SUMMARY/CONCLUSION: 1. Normal left ventricle and right ventricle. 2. Borderline impaired diastolic relaxation. 3. No significant valve disease. 4. Normal estimated pulmonary artery pressure. [2] Assessment/Plan 1. Preop examination (Z01.818: Encounter for other preprocedural examination) Patient requires cardiac clearance for noncardiac, foot surgery. She was recently seen by Dr. Solis earlier this month and cleared at low risk. She has no new cardiac complaints, normal coronary arteries per fairly recent left heart cath. No further testing required, acceptable to proceed with surgery. Follow-up with MD in 6 months time. Call office for sooner appointment for new/worsening symptoms. Follow-up With When Contact Information Will WALSH, Elliott Grewal Within [address] [place] [phone] Additional Instructions: Problem List/Past Medical History Ongoing BMI 30.0-30.9,adult Change in bowel habits Dysuria Esophageal spasm Family history of colorectal cancer Feeling of incomplete bladder emptying Flank pain Foreign body in stomach, sequela Gastric bezoar Gastric erosions GERD (gastroesophageal reflux disease) History of kidney stones Incomplete emptying of bladder Irritable bowel syndrome with diarrhea Loose stools Mixed incontinence urge and stress Nausea and vomiting Nocturia Other urethral stricture, female Screen for colon cancer Smoker Stress incontinence Tertiary contraction of esophagus Urge incontinence Urinary frequency Vomiting Historical ADHD (attention deficit hyperactivity disorder) Agoraphobia Anxiety Benign hypertension Bipolar Common migraine Depression Diabetes mellitus type 2 Dysphagia Fibromyalgia Generalised osteoarthritis Hypercholesterolaemia Neuropathy, peripheral OCD (obsessive compulsive disorder) CELINE - Obstructive sleep apnea Post traumatic stress disorder (PTSD) Procedure/Surgical History Esophagogastroduodenosco py (03/29/2022), Peroneal tendon (11/08/2021), Esophagogastroduodenosco py (06/26/2021), Urodynamics (05/16/2021), Colonoscopy (03/14/2020), Catheterization of left heart (03/03/2020), Excision of Downey's neuroma (10/22/2018), Removal of toenail (10/22/2018), Tarsal tunnel release (05/07/2018), Right tarsal tunnel release (02/15/2016), Left instep plantar fasciotomy with division of soft tissue & fascia & muscle. (08/17/2015), right instep plantar fasciotomy with division of muscle and fascia (06/22/2015), Appendectomy, Arthroscopy of knee, Breast surgery, Carpal tunnel release, Cholecystectomy, Colonoscopy, Colonoscopy, Esophagogastroduodenosco py, Esophagogastroduodenosco py, ESWL of kidney, Excision of ganglion cyst, Hyst (more content not included)... Normal [facility] Comment on above: Result Comment: Elec tronically Signed By: Cady CALIX CNP\.br\Date and Time Signed: 11/13/22 11:39 EDT [facility] November 13, 2022 Re: Keturah Herrera : 1970 The patient, KETURAH HERRERA is predicted to represent low risk of perioperative cardiovascular events involving the planned podiatry, non-cardiac surgery. See attached testing and/or office note. Cady Calix NP-Veronica [facility] V[facility] Result Name Current Result Heart and Vascular Office/Clinic Note 10/29/2022 Normal [facility] US Abdomen Completeon 2022 US Abdomen Complete Exam Date/Time: 11/09/2022 09:55 EDT Reason for Exam: R11.2;Nausea Report IMPRESSION: NO ACUTE ABNORMALITY. EXAMINATION: US Abdomen Complete HISTORY: Nausea COMPARISON: CT abdomen pelvis 10/20/2022 TECHNIQUE: Ultrasound evaluation was performed of the right upper quadrant of the abdomen FINDINGS: Normal echogenicity and contour of the liver. No liver lesion or intrahepatic biliary dilatation identified. The liver is mildly enlarged measuring 19.1 cm in length. The gallbladder is surgically absent. The spleen is normal and echogenicity and size measuring approximately 12 cm in length. The right kidney measures 10.3 x 4.7 x 5.6 cm with a cortical thickness of 1.4 cm and the left kidney measures 8.4 x 4.5 x 4.2 cm with a cortical thickness of 1.2 cm. No shadowing calculi or hydronephrosis. No overt abnormality of the pancreas. Ordering Provider: , FINAL REPORT Dictated: 11/10/2022 5:28 pm Johny Arreola DO Signed (Electronic Signature): 11/10/2022 5:28 pm Signed by: Johny Arreola DO Transcribed by: MERLE Technologist: JOCELINE [facility] Consent for Treatmenton 10-18 Consent for Treatment [id number]: 127 [facility] Coding Summary.on 11-08-2022 Coding Summary. CD:[id number] Ww+P GhlYWQ+YI4EHCPgJ76lnTJrm V6xR4PAMPhEDucqLAKANAkAU kGujkMjBV3zrISbXZDz IC8+JH5uDNVnHqbuxRUnj3U7 iTF0K33gcq4iQUkblII6GSDv VaKcsdaab9rhaUy6AFqnNlym OyBt VYCelF45NIN9mV19Ah10eODn xCAqe9iexEe3PiZtJTFjZSP2 rHzhHGnyl0BbZSFeX52ewJPn c2U6 SUHmrZxmjKDgQqBitDX6wA0s ITynlcigo2cenbtqIlk4zn61 nIQnv3Z6mNA9O5NlfxP5AMUt bGQg EmnlxIMGrK1awgror9xxpsui PuFhCYOuIWj2FKa0HATqsRjp GoOqWF09LIW2OTZyudEnD5Fl LWFs qXiaRtL4h8F1Op5CK6AKSytw T1KXBEYHLOrkhAT+BY13ek56 T8ExJdbyEcs7KHOiXEN6wZR4 aD0n EMGaXQkdd5R5xDW8Q1PzuxJp ig9kv2pjHLJqRMwzM03tdNQl z4I1QHQmeRY6NVNiaAcuMlQw aG93 Oyc+EPKjxLlcf5XcCtjuz9tf d7semFo3GwcnMEZbllIcfUpj EAK0m9DrRn1nQXJjoPQ2lQV5 aD0i KdOcCwY0AEioA274DsQofQDv NkkmI92lO0VzsOI+PHRyPjx0 GZGrhXumHW2wG7HmULHskzxj bGVm dKvtBD5hHECmmzitSEJwzC4s LMSbK8n4UsRiTvF9QIqnM3Ac OPBthuqqWy14xQ7fKsWlUxQ9 MGlu I4OekcG0MFMmpGCwFNiqIUH5 T71lr6Z0DSEkSCFxBFL1kBN9 aH8vkXsbknqejJOtiDpepuQi dGlj GCytMEqqC143SONvfAfcGqBg ZGluZyBEYXRlOiAgMDMvMjMv MjAyMzwvdGQ+BUCmIUX9hJkb PSAn iCRjHPryLm4xsFqfyQowYW7v CYNdfuaoNVRtdD4kJRCyoGEd rNqfKM4zWSGtdbseu287UsSv MHB0 BOZdsOPiG3OxyU6eDcYfDZLp VUGfC2GglWFrMKgrT699UPeu SuI2HGNsljVlR0RzPSUeaSug OiB0 f8H6Io5Gs2RxztzcO3LjfDWw NeZxNyvaKAy0G9EbTzfuuRI+ GC84PREwMN34OGx6IDW5pJgm PSdi PPTcE4ApoE9yNfFuOAWjGFZj Oyc+PHRhYmxlIHdpZHRoPScx IINvBmWhdJloAF7hPu2xAYDa LWNv zJvqqMRzWoOax7bkFOUtSFsw SD0jgWjmF2BgnQF4BDOko9i4 Ro94Q48uD8GjrTC+PGNvbCB3 aWR0 jN4sCtTkLuF3WUhhO443IzHw oLXgIdckg6mnm7tzlHz9DyA0 QQObslEcnXagWPP7d0RzLd81 Y29s IHdpZHRoPSIxNSUiIHZhbGln sj2utT1aLn5+RXSgwKC1yCP6 uP9tZfRkTiE0SFqkT475NnAw cCIv Dosba8mtd9xmqSo0JeShIIKb cvYcpKzaVGT7a6HbHn73U0Pv oMcbz5CuWjf2cp91lPBtp5P5 bGU9 M5GkJOShpjngzFZogTebNR8z GJAiblxhFICdbO2rMMOiS5d4 XeLuBzK1NNhqL0PuecU5UBQl bGQg EJJkjEMFfA2lmdats6aiyjbn NyEePDStXGl7HOr5AFMpmTqf CkKtQPL5KtE8ERP5dOLxyV8e bGln yiyiuM1gZdp+HIH7xCPzkKTI JO4xVoixxTW+MVIjHAL5xDdf WLvuUTNywY6nFKOdX4f1ApHf LjA1 RSuhP7EieaB6EBTdfMLuUDYh yDTOyY4tbhxil6gfilbfIfKf RRItYDl2ELy3FFNjyUgxNiSe ZWZ0 EaS8GXV7mQJnwH9xfWpqgmfe uP9mQdz+JlgwyPbbSCO2GAc6 P1NmLmw8WVKimObfHB3pjQBp ZGlu Ke6pdKhlwMgzCF8qIEXmnybn i050UuKsp4yjLBHpaJAdVFhz RFT1X62vq7H3AACdFUSxVNG6 dGV4 bW7dpKzzgmitxJUzqMisueTt xSwmORjvAAwyH880QDOipAos SaJpCCi5S9PkIko1QOBvbRqw ZT0n oHVbATvxKi6efEhehRgpHB5t SXUrblvzz228FaTco4nhXXSc iXItGQqcKVP6J85wz4U1EHPg MDAw CDH1eFB7vD0klWtbntsuxCNe zEgrpnApwPfkTAduMFspP835 FZIwsKwnClWfjWj7C9UnWfg2 ZCBz xQzjJF2fzCCnWKkqLf2ihIsd nGlyLV7fIHZrbogku401EiAy w5krKRUwlEWrRRbkCHI1C46v b3I6 RUUwUTNoFCR7xAT0aL7anFqk bjogbGVmdDsgdmVydGljYWwt SBicL114XTTsfLoxNmDocGzs bnQg RFsoVVc0R9KpSdhojIQ+PC90 IPDlUK26fNSvnXJwu5gsfUh2 LmHeDUZlASW2bPqxSAzlu3Ya ZXIt L38xgEKtd0Z7KPNanQjnlOTx WrLphCM5yC4nPBntybnyq5ya jsslCbvbq0sbws90qI39V56e IHdp RJVpDAHpZQZzAYOizXxzkp6i uW9zHj4+IKXkfVQ4zPR8oS4x DGVqOgR2ZUifO394XiWvcNOu Pjxj v6sdn0mypFc0KgZ0WLHnlrRg zPadLRY6k5WaBb01U06hPLut JSDpWZZuUZDkZVYyyRirfp9g dG9w Ii8+MLLmtMO0fXV3yJ8bQeLy EzP0JSwhA293WiUhwBUcQbmv E68uE8OxoBU+HXEyFny1BQFr dHls OI3gfFGnLZpxXr3nCSP5KuKe FgPlQKltI8NzQJSstukjrvxe xOI7PPSqZEYaqI40Io6gvAsm MTBw vGAPnB6xrawun0hfljftXmYm YTKtNPt5KAf2TYJvoLumUqAw QJQ4BgT5GXD3sJWtiH8jhCub bjog eC4sG9LhSRHzdcajXz56iG1b AhExBkE9ZWqeNxu+UEFSSVNI GHYWZI3RLOW6U0YbLvv1LOTi dHls XL8zmXQuGRmfLj4slFrsqLya ZU4cZXBmtbbmZAAjsZ3cFSGn pYOseAzoYJ2dNWIqmrqnt846 OiAx BSW2CKKqcHJlK9KoyN2dEfDo NMWsVHCgE7NbfKTyGNfzP498 AJjjBbR6CUNujoIkI4ThZTPv aWdu KbK8l9S8Ov6sCd9zAK4sZCbx EK57WJ50vGDyh4G6kEV7M6Zm VXToyeudpvejbHY0YPUpNMYr aW47 eJVcIDapLl0vn8K8q659XYPh VMKrkU16Sh8yjEtjNEPljWGB vI4ytspse4pemvwuTdJjLAXr MDt0 SPp7OOIwdHkgZkBhGKQ7YjH3 ZKA6sFXgqI1yeBgllzugrY8j Oyc+XSJgOZIlckX1R6GzVve7 ZCBz sPejBJ9hbATeLNobWe8vsAoq cIyaTV3yMGUjonpsLXHwqJ1m EXVemVXexAekMB0hTPNljqjv b250 LvDiNYE4WGKyoHIbK9HjwT5i PkPbPFVgUSNsA4EdgZKnNSpx Y311YErgKmR4NFCyndSaP7Nb LWFs lSbxCcX3o9P8Oa1FIS2kbPE2 M0LwImx7TNAffOuqSI2nySEe ECsgCa4zvYmqjUzxUA5qCTJr bjtw KIMafG2iVTGznXXvnLwoHS9n DJZnsmvzy951BrBaBPA2OREh qITtV0OesV6pNcMuDAAjAFOm O3Rl uTWwDKazY684DRdiOqF1OMZj rrXhA8WyHWVreKvvDjG0t6I1 Dn6JxDRoVFGvMQ72GL18QJ12 L3Ry PjwvdGFibGU+PHRhYmxlIHdp JJYrUThgZPXqLtFmiNorSK6m Up4lLRCtLEDvfXtzcZKfDfDl b2xs IAPaTPldLS4peLehB9XlvLR6 RABxa8h2Gy94N82iA0YicWG+ EIHmeRU7iZY1kX9vXfSxYnF7 YWxp Q245ToNfzHXoZtiuj4cmy8pv yFm1JeFpGBYzyoSltLpmFJU2 j4NqPw44D83tZInzCTIrBYEi MCUi ZJQimGivxc9vkC3fYq8+PGNv gNY0fRZ1hS2uMrPyLuT6FTuk T267XqVzbWSwGrvyT64kR7Bj dXA+ UFXfGji7HOEpxIrkNT2hlGAs DWdnAu6wDHY0WmOaWsFdFTvg A3LzCIPvqqrjqnkhtCZ3NGJa MDUw gZ20Ok0hoSjgWh2hTORgOPZ8 BCUdtBAnE8AkzG7yVnBeVYTi MBZfB2ZflABtCNudK701MQka ZnQ7 LZPnvmDwG3JsCOMrhPhsVaO1 x6A9Xu1ZcFyixAUoRT7sJcCf GMf4J1MiPsr7MEZpkJbkSN5z cGFk NMrvDz7apFhbeOcyMH6iQBHc prpmd279EnSve5ebEHUveLEy BGhbUAA6T27oh3J7MRDqJJUf MDA7 lXQ1pQ8aoZwjzhxuzYPfmQwg ywEjtJlzECsnEToqA394KNXi sSbzKwRTTho9U8VpRrc2RBLs dHls NM4prFEhOLfkFs4whLfovRoe FI7xMQKjihhgl293JxDwm7qq PAYfnWOcYXkaRQQ2C28ev9C0 ICMw QKQbQYQ2pUT2sE9ybLfovztd bGVmdDsgdmVydGljYWwtYWxp S774IFYyyDwdVk3ELjj5R5Kh Pjx0 ZESfpYxmUO8iwBHxSJxzPk3y mBaboEodQA5hSYKlwsuop442 CkNiz6rjWETejIWfUOssCYW1 Y29s z7A8OZOeVFUxDNY5hVO1nT6e bGlnbjogbGVmdDsgdmVydGlj KYlnWAhcB975GRLslXehPsMu eWVy OjwvdGQ+PR63hn07H8AsOocs Spr2KREvCLL8dFS2dF4uPAYx HWllj1G4xFO1D7YawhLqic9g b2xs YXBzZTog (more content not included)... Normal [facility] Consent for Treatmenton 10-17 Consent for Treatment [id number]: 127 Normal [facility] Heart and Vascular Office/Cl inic Noteon 10-30-2022 Heart and Vascular Office/Clinic Note History of Present Illness Patient is a very pleasant 52-year-old diabetic female with hypertension, hypercholesterolemia, former patient of Dr. Beltran who performed a left heart catheterization on 03/03/2020 with the following results: CONCLUSIONS: 1. Essentially normal coronary arteriograms. 2. Noncardiac chest pain. [1] Subsequent of that she underwent a 2D echo with Doppler on 06/07/2021 with the following results: (06/07/2021 14:15 EDT Echo Transthoracic Complete) SUMMARY/CONCLUSION: 1. Normal left ventricle and right ventricle. 2. Borderline impaired diastolic relaxation. 3. No significant valve disease. 4. Normal estimated pulmonary artery pressure. [2] In addition she underwent a 14-day Holter on 06/01/2021 with the following results: CONCLUSIONS: Essentially normal 14 day event monitor with subjective symptoms of skipped beats, chest pain, shortness of breath and light-headedness all of which corresponded to either normal sinus rhythm or sinus tachycardia. There was an autotrigger of sinus bradycardia while the patient was asleep on 05/21/2021 at 02:07:33. There was also autotrigger on 05/21/2021 which showed sinus rhythm with ventricular bigeminy but no symptoms were reported. Recommend clinical correlation or alternative mode of testing to further evaluate patient's symptoms. The patient tolerated the procedure well. No complications. [3] Patient is now here in follow-up. She now requires surgery on her feet for hammertoe and neuroma. She denies any chest pain, angina, shortness of breath and has very rare palpitations. They appear to be well controlled with beta-laz therapy. Results of her testing given to the patient. In our office today her blood pressure is 126/80 and pulse of 70 and regular. Physical exam is as below. EKG dated 10/30/2022 shows normal sinus rhythm with nonspecific ST and T wave changes. Review of Systems Constitutional: no fever, no chills, no weakness, no fatigue Respiratory: no shortness of breath, no cough, no orthopnea, no wheezing Cardiovascular: no chest pain, no palpitations, no edema Neuro: no dizziness no light headed no syncope Additional ROS info: Except as noted in the above Review of Systems and in the History of Present Illness all other systems have been reviewed and are negative or noncontributory. Physical Exam General: alert, no acute distress Neck: Supple, noJVD nocarotid bruit Cardiovascular: regular rate and rhythm, no murmur normal peripheral perfusion Respiratory: Lungs CTA, respirations non labored Extremities: no edema Neurological: oriented x 4, LOC appropriate for age, sensation equal & normal bilaterally, speech normal Skin: Warm, dry, intact- no rash or concerning lesions Assessment/Plan 1. Palpitations: Patient's palpitations have markedly improved with carvedilol treatment. Her recent cardiac evaluation is unremarkable except for rare ventricular bigeminy which were asymptomatic. She will continue her carvedilol therapy. The patient is at low risk for noncardiac foot surgery and may proceed. 2. Return to office in 6 months with Cady in [address] Solis. Follow-up No qualifying data available Problem List/Past Medical History Ongoing BMI 30.0-30.9,adult Change in bowel habits Dysuria Esophageal spasm Family history of colorectal cancer Feeling of incomplete bladder emptying Flank pain Foreign body in stomach, sequela Gastric bezoar Gastric erosions GERD (gastroesophageal reflux disease) History of kidney stones Incomplete emptying of bladder Irritable bowel syndrome with diarrhea Loose stools Mixed incontinence urge and stress Nausea and vomiting Nocturia Other urethral stricture, female Screen for colon cancer Smoker Stress incontinence Tertiary contraction of esophagus Urge incontinence Urinary frequency Vomiting Historical ADHD (attention deficit hyperactivity disorder) Agoraphobia Anxiety Benign hypertension Bipolar Common migraine Depression Diabetes mellitus type 2 Dysphagia Fibromyalgia Generalised osteoarthritis Hypercholesterolaemia Neuropathy, peripheral OCD (obsessive compulsive disorder) CELINE - Obstructive sleep apnea Post traumatic stress disorder (PTSD) Procedure/Surgical History Esophagogastroduodenosco py (03/29/2022), Peroneal tendon (11/08/2021), Esophagogastroduodenosco py (06/26/2021), Urodynamics (05/16/2021), Colonoscopy (03/14/2020), Catheterization of left heart (03/03/2020), Excision of Downey's neuroma (10/22/2018), Removal of toenail (10/22/2018), Tarsal tunnel release (05/07/2018), Right tarsal tunnel release (02/15/2016), Left instep plantar fasciotomy with division of soft tissue & fascia & muscle. (08/17/2015), right instep plantar fasciotomy with division of muscle and fascia (06/22/2015), Appendectomy, Arthroscopy of knee, Breast surgery, Carpal tunnel release, Cholecystectomy, Colonoscopy, Colonoscopy, Esophagogastroduodenosco py, Esophagog (more content not included)... Normal [facility] Comment on above: Result Comment: Elec tronically Signed By: Will WALSH, Elliott Grewal\.br\Date and Time Signed: 10/30/22 15:48 EDT Physician Orderon 10-30-2022 Physician Order [id number] :127 Normal [facility] Reminderson 10-30-2022 Reminders - From: Jess Carty To: Felisa Ruiz; Sent: 10/30/2022 15:53:53 EDT Show up: 10/02/2023 14:53:00 EST Subject: [address] up [address] Dr. Solis (October 2023) Due Date/Time: 10/31/2023 15:53:00 EDT Reminder/Recall [facility] Reminders - From: Jess Carty To: Felisa Ruiz; Sent: 10/30/2022 15:53:24 EDT Show up: 04/01/2023 15:53:00 EDT Subject: 6 month follow up Due Date/Time: 05/02/2023 15:53:00 EDT Reminder/Recall 6 month follow up with Cady (2022) Normal [facility] Ambulatory Visit Summaryon 0 10-29-2022 Ambulatory Visit Summary KETURAH HERRERA :1970 Visit Date:10/29/2022 Ambulatory Visit Instructions Your Diagnosis Nausea and vomiting Gastric erosions Loose stools GERD (gastroesophageal reflux disease) Family history of colorectal cancer Your Care Team Attending Physician - Inessa Grajeda CNP Primary Care Physician - ROBERT GIRON DO This Is Your Medications List bifidobacterium infantis (Align 4 mg oral capsule) famotidine (Pepcid 20 mg Tab) loperamide (Imodium 2 mg oral capsule) ondansetron (Zofran 4 mg Tab) Contact prescribing physician if questions or concerns Oxygen (Oxygen - for Home) albuterol (Ventolin HFA 90 mcg/inh Aerosol) aripiprazole (Abilify 30 mg oral tablet) atorvastatin (Lipitor 40 mg Tab) benztropine (benztropine 0.5 mg oral tablet) calcium-vitamin D (Calcium 600+D) carvedilol (carvedilol 25 mg Tab) cetirizine (Zyrtec) ergocalciferol (Vitamin D 50,000 intl units (1.25 mg) oral capsule) fremanezumab (Ajovy Autoinjector 225 mg/1.5 mL subcutaneous solution) fremanezumab (Ajovy) furosemide (Lasix) glimepiride (glimepiride 4 mg Tab) hydrOXYzine lidocaine topical (Lidoderm 5% Patch) loperamide (Imodium A-D 2 mg oral tablet) meclizine metformin (metformin 500 mg Tab) montelukast (montelukast 10 mg Tab) naratriptan (naratriptan 2.5 mg Tab) nortriptyline (nortriptyline 25 mg Cap) pantoprazole (Pantoprazole [address] Tab) pilocarpine (pilocarpine 5 mg Tab) polyethylene glycol 3350 with electrolytes (NuLYTELY Aquino oral powder for reconstitution) pramipexole (Mirapex 0.5 mg) rimegepant (Nurtec ODT) solifenacin (Vesicare 10 mg Tab) thiamine (Vitamin B1 100 mg Tab) [Image Removed: STOP]Stop taking these medications omeprazole (omeprazole 40 mg Cap-DR) Procedures Performed Esophagogastroduodenosco py (03/29/2022), Peroneal tendon (11/08/2021), Esophagogastroduodenosco py (06/26/2021), Urodynamics (05/16/2021), Colonoscopy (03/14/2020), Catheterization of left heart (03/03/2020), Excision of Downey's neuroma (10/22/2018), Removal of toenail (10/22/2018), Tarsal tunnel release (05/07/2018), Right tarsal tunnel release (02/15/2016), Left instep plantar fasciotomy with division of soft tissue & fascia & muscle. (08/17/2015), right instep plantar fasciotomy with division of muscle and fascia (06/22/2015), Appendectomy, Arthroscopy of knee, Breast surgery, Carpal tunnel release, Cholecystectomy, Colonoscopy, Colonoscopy, Esophagogastroduodenosco py, Esophagogastroduodenosco py, ESWL of kidney, Excision of ganglion cyst, Hysterectomy, ingrown toenail removal, Lithotripsy, Mortons neuroma, salpingectomy with unilateral oophorectomy, Sinus, Suspension of bladder, Tarsal tunnel, Tubal ligation, Ulnar nerve decompression. Discharge Vitals Temperature (Temporal Artery) 36.6 ?C Heart Rate (Peripheral) 85 Blood Pressure 138/86 Height 64 in Height 163 cm Weight 170.06 lb Weight 77.3 kg BMI 29.09 What to do next Scheduled Follow-Up Appointments Saturday 8:00 AM EDT With: Where: [facility] Saturday 3:00 PM EDT With: Elliott Solis MD Where: [facility] Saturday 2:40 PM EDT With: Where: [facility] Saturday 2:40 PM EDT With: Inessa Grajeda CNP Where: [facility] Normal [address] [place] [address]- \.br\ You Need to Schedule the Following Appointments\.br \ Follow Up with Inessa Grajeda CNP When: Within 1 to 2 weeks\.br\ Comments:\.br\ Following colonoscopy.\.br \ Where:\.br\ Medications\.br\ What How Much When Why Instructions\.br \ New bifidobacterium infantis (Align 4 mg oral capsule) 1 Capsules By Mouth Every day Loose stools Duration: 28 Days Pickup at [facility]\.br\ New famotidine (Pepcid 20 mg Tab) 1 Tablets By Mouth Once a day (at bedtime) GERD (gastroesophagea l reflux disease) Duration: 90 Days Pickup at [facility]\.br\ New loperamide (Imodium 2 mg oral capsule) 1 Capsules By Mouth Every 6 hours as needed for as needed for loose stool Loose stools Duration: 30 Days not to exceed 8 capsules, or 16 mg, in 24 hours Pickup at [facility]\.br\ New ondansetron (Zofran 4 mg Tab) 1 Tablets By Mouth Every 12 hours as needed for Nausea/Vomiting Nausea and vomiting Duration: 10 Days Pickup at [facility]\.br\ Unchanged albuterol (Ventolin HFA 90 mcg/ inh Aerosol) 2 Puffs Inhalation 4 times a day as needed for Shortness of breath or wheezing Contact prescribing physician if questions or concerns \.br\ Unchanged aripiprazole (Abilify 30 mg oral tablet) See instructions Reports taking 15mg daily now as prescribed by her PCP. Contact prescribing physician if questions or concerns \.br\ Unchanged atorvastatin (Lipitor 40 mg Tab) 2 Tablets By Mouth At bedtime Contact prescribing physician if questions or concerns \.br\ Unchanged benztropine (benztropine 0.5 mg oral tablet) 1 Tablets By Mouth Every day Contact prescribing physician if questions or concerns \.br\ Unchanged calcium-vitamin D (Calcium 600+D) 600 / 400 mg By Mouth Every day Contact prescribing physician if questions or concerns \.br\ Unchanged carvedilol (carvedilol 25 mg Tab) 1 Tablets By Mouth 2 times a day Duration: 90 Days Contact prescribing physician if questions or concerns \.br\ Unchanged cetirizine (Zyrtec) 10 Milligram By Mouth Every day Contact prescribing physician if questions or concerns \.br\ Unchanged ergocalciferol (Vitamin D 50,000 intl units (1.25 mg) oral capsule) 1 Capsules By Mouth Saturday Contact prescribing physician if questions or concerns \.br\ Unchanged fremanezumab (Ajovy Autoinjector 225 mg/ 1.5 mL subcutaneous solution) 225 Milligram Subcutaneous Once a month Contact prescribing physician if questions or concerns \.br\ Unchanged fremanezumab (Ajovy) Contact prescribing physician if questions or concerns \.br\ Unchanged furosemide (Lasix) 20 Milligram By Mouth Every day Contact prescribing physician if questions or concerns \.br\ Unchanged glimepiride (glimepiride 4 mg Tab) 1 Tablets By Mouth Every day Contact prescribing physician if questions or concerns \.br\ Unchanged hydrOXYzine 50 Milligram By Mouth 4 times a day Contact prescribing physician if questions or concerns \.br\ Unchanged lidocaine topical (Lidoderm 5% Patch) 1 Patches Topical Every day apply 12 hours on and 12 hours off daily Contact prescribing physician if questions or concerns \.br\ Unchanged loperamide (Imodium A-D 2 mg oral tablet) See instructions 2 mg Oral BID and 2mg after each loose stool Contact prescribing physician if questions or concerns \.br\ Unchanged meclizine 25 Milligram By Mouth 4 times a day as needed for Dizziness Contact prescribing physician if questions or concerns \.br\ Unchanged metformin (metformin 500 mg Tab) TAKE ONE TABLET BY MOUTH TWICE A DAY Contact prescribing physician if questions or concerns \.br\ Unchanged montelukast (montelukast 10 mg Tab) 1 Tablets By Mouth Every day Contact prescribing physician if questions or concerns \.br\ Unchanged naratriptan (naratriptan 2.5 mg Tab) 1 Tablets By Mouth As Directed as needed for Migraine headache Contact prescribing physician if questions or concerns \.br\ Unchanged nortriptyline (nortriptyline 25 mg Cap) TAKE ONE CAPSULE BY MOUTH IN THE MORNING AND TAKE THREE CAPSULES AT BEDTIME Contact prescribing physician if questions or concerns \.br\ Unchanged Oxygen (Oxygen - for Home) 3 Liter/minute Nasal Cannula Every day Oxygen - Continuous or Nocturnal Diagnosis: Portable 02 for physician visits, oxygen conservation Contact prescribing physician if questions or concerns \.br\ Unchanged pantoprazole (Pantoprazole [address] Tab) 1 Tablets By Mouth Every day Gastritis Gastric erosions GERD (gastroesophagea l reflux disease) Duration: 90 Days Contact prescribing physician if questions or concerns \.br\ Unchanged pilocarpine (pilocarpine 5 mg Tab) TAKE 1 TABLET BY MOUTH THREE TIMES DAILY. Contact prescribing physician if questions or concerns \.br\ Unchanged polyethylene glycol 3350 with electrolytes (NuLYTELY Aquino oral powder for reconstitution) See instructions 240 mL Oral Daily Contact prescribing physician if questions or concerns \.br\ Unchanged pramipexole (Mirapex 0.5 mg) 1.5 Milligram By Mouth 3 times a day Contact prescribing physician if questions or concerns \.br\ Unchanged rimegepant (Nurtec ODT) 75 Milligram By Mouth Every 24 hours as needed for as needed for migraine headache Contact prescribing physician if questions or concerns \.br\ Unchanged solifenacin (Vesicare 10 mg Tab) 1 Tablets By Mouth Every day Contact prescribing physician if questions or concerns \.br\ Unchanged thiamine (Vitamin B1 100 mg Tab) 1 Tablets By Mouth Every day Contact prescribing physician if questions or concerns \.br\ Pharmacy Information\.br\ [facility]: [address] [place], [place] [id number] [phone]\.br\ \.br\ What When Comments\.br\ Stop Taking omeprazole (omeprazole 40 mg Cap-DR) TAKE ONE CAPSULE BY MOUTH ONCE DAILY BEFORE MEAL \.br\ Medications and Immunizations Administered\.br \ Not Given\.br\ influenza virus vaccine, inactivated, Patient Refuses\.br\ Allergies\.br\ Neurontin (Unknown)\.br\ Advair HFA (Rash)\.br\ Augmentin (Vomiting)\.br\ Avelox (Rash)\.br\ Bactrim DS (Vomiting)\.br\ Calan (Palpitations, Vomiting)\.br\ Cymbalta (Unknown)\.br\ Decadron (Hot flashes)\.br\ Depakote (Alopecia)\.br\ Geodon (Palpitations)\. br\ Lyrica (Unknown)\.br\ Macrobid (unknown)\.br\ Mobic (Unknown)\.br\ Paxil (Unknown)\.br\ Requip (Altered mental status)\.br\ Robaxin (Unknown)\.br\ Savella (Unknown)\.br\ Strattera (Palpitations)\. br\ Tape (Rash)\.br\ Topamax (Vomiting)\.br\ Toradol (Unknown)\.br\ Trileptal (Unknown)\.br\ Wellbutrin (Palpitations)\. br\ amitriptyline (Vomiting)\.br\ amoxicillin (Hives)\.br\ codeine (Rash)\.br\ dexamethasone (Hot flashes)\.br\ doxycycline (Palpitations)\. br\ fluticasone (Unknown)\.br\ ibuprofen (Rash)\.br\ methadone (Vomiting)\.br\ penicillins (Unknown)\.br\ pregabalin (Palpitations)\. br\ shellfish (Rash)\.br\ ziprasidone (Unknown)\.br\ Problems\.br\ Ongoing - Any problem that you are currently receiving treatment for.\.br\ BMI 30.0-30.9,adult\ .br\ Change in bowel habits\.br\ Dysuria\.br\ Esophageal spasm\.br\ Family history of colorectal cancer\.br\ Feeling of incomplete bladder emptying\.br\ Flank pain\.br\ Foreign body in stomach, sequela\.br\ Gastric bezoar\.br\ Gastric erosions\.br\ GERD (gastroesophagea l reflux disease)\.br\ History of kidney stones\.br\ Incomplete emptying of bladder\.br\ Irritable bowel syndrome with diarrhea\.br\ Loose stools\.br\ Mixed incontinence urge and stress\.br\ Nausea and vomiting\.br\ Nocturia\.br\ Other urethral stricture, female\.br\ Screen for colon cancer\.br\ Smoker\.br\ Stress incontinence\.br \ Tertiary contraction of esophagus\.br\ Urge incontinence\.br \ [facility] Gastroenterology Office/Clin ic Noteon 10-29-2022 Gastroenterology Office/Clinic Note Chief Complaint Diarrhea HPI Staff Patient is a 52 year old female here today to followup from 10/02/22 office visit. US scheduled for tomorrow 10/30/22 and colonoscopy is scheduled for 11/07/22. Patient c/o constant diarrhea and is requesting Loperamide, Xifaxan, Phenergan and Zofran. History of Present Illness Patient is a 52-year-old female who presents for follow-up. PMH of HLD, DM, type 2- managed by patient's PCP. Patient was previously evaluated 10/02/2022 and had previously called office 08/2022 requesting antinausea medication. Patient was previously evaluated by Dr. Cramer 12/2021 for esophageal spasms noted on x-ray of esophagus from 11/2021. Patient also with history of difficulty swallowing. Review of record indicated patient was unable to complete esophageal manometry 01/2022 and was advised to proceed with EGD with dilation. Previous EGD with dilation 03/2022 revealed esophageal contraction, normal gastric mucosa, esophagus dilated during EGD, normal gastric mucosa, small gastric bezoar, normal duodenum. Patient was advised to minimize the negatives and narcotics, to chew food well and to be on the residual diet. Note also indicated that if patient's difficulty swallowing persisted to repeat EGD with Botox injection. Patient was previously scheduled to have colonoscopy 12/2021 however note indicated patient had canceled or no showed. Previous colonoscopy 02/2020 revealed lipoma in cecum, hemorrhoids. Patient previously reported having to push to have a BM and was having watery/loose diarrhea over the last 2 weeks prior. Patient was ordered CBC/CMP. Labs completed 10/2022 revealed elevated WBC of 12.1, normal H&H, normal BUN, normal creatinine. Labs I had ordered were not completed. Patient also with history of cholecystectomy in 2021 and had previously reported she was unable to tolerate Questran. She also indicated she did not always follow a low-fat/low fiber diet. Patient had a repeat EGD 08/2022 that revealed normal esophagus, mild antral erosions, normal duodenum, stomach biopsy revealed mild to moderate chronic gastritis and erosion, negative for intestinal metaplasia, negative for H. pylori. Colonoscopy completed 08/2022 revealed was aborted related to poor prep and was to have repeat colonoscopy with 2-day prep in less than 3 months?not done. Patient was ordered previous ultrasound of abdomen?not done. Patient with family history of colorectal cancer?patient's maternal aunt. Previous gastric emptying study 06/2021 that was normal. Patient reported during most recent visit with me 09/2022 that she was having some improvement in her acid reflux with pantoprazole 40 mg daily. She indicated nausea and vomiting was occurring daily after eating. She also reported she had not been following low fiber/low fat diet. Patient was also having loose stools and was educated to complete stool testing to further evaluate. Stool testing completed 10/2022 was negative for infectious process. Stool testing completed negative for Campylobacter, Salmonella, Shigella, Shiga toxin, Vibrio, Rotavirus, Norovirus, Yersinia enterocolitica, and stool testing for C. difficile unable to be completed in relation to stool consistency per lab. Patient was also educated to proceed with colonoscopy as planned. No ultrasound of abdomen available to review during today's encounter. Review of record indicates patient was evaluated in ED at [facility] 10/20/22 for flank pain and was treated for UTI. During today's visit, patient reports loose stools had improved for a few days and then returned 1 week ago. Reports she sometimes follows low fiber/low fat diet. Is also having nausea/vomiting after eating that has been occurring off/on for the last year. Acid reflux occurring nearly every day and evening. Is taking pantoprazole 40mg daily. Denies fevers/chills, black/bloody stools, and denies having any other GI complaints. Review of Systems ROS - Provider Respiratory: no shortness of breath. Cardiovascular: no chest pain. Gastrointestinal: yes nausea, yes vomiting, yes loose stools, no GI bleeding. See HPI for details regarding. Physical Exam Vitals & Measurements T: 36.6 ?C(Temporal Artery) HR: 85(Peripheral) BP: 138/86 HT: 64 in HT: 163 cm WT: 77.3 kg WT: 170.06 lb BMI: 29.09 General: Well developed, well nourished, in no acute distress Head: Normocephalic/atraumatic Lungs: Normal respiratory effort and clear to auscultation Cardio: Regular rate and rhythm, normal S1 and S2, no murmur, no rub Abdomen: Soft, non-distended, non-tender. Normoactive bowel sounds present in all 4 abdominal quadrants, bilaterally. Mental Status: Alert and oriented x3. Normal mood and affect Assessment/Plan 1. Nausea and vomiting (R11.2: Nausea with vomiting, unspecified) Nausea and vomiting daily after eating. Off/on for years. Possibly medication related and/or related to antral erosions. Hx. gastric bezoar on previous EGD 03/2022. Previous GES 06/2021 was normal. EGD 09/06/2022 revealed norm (more content not included)... Normal [facility] Comment on above: Result Comment: Elec tronically Signed By: Inessa Grajeda CNP\.br\Date and Time Signed: 10/29/22 15:11 EDT Patient Educationon 10-30-19 Patient Education Gastroenterology Nausea, Adult Nausea is the feeling that you have an upset stomach or that you are about to vomit. Nausea on its own is not usually a serious concern, but it may be an early sign of a more serious medical problem. As nausea gets worse, it can lead to vomiting. If vomiting develops, or if you are not able to drink enough fluids, you are at risk of becoming dehydrated. Dehydration can make you tired and thirsty, cause you to have a dry mouth, and decrease how often you urinate. Older adults and people with other diseases or a weak disease-fighting system (immune system) are at higher risk for dehydration. The main goals of treating your nausea are: ? To relieve your nausea. ? To limit repeated nausea episodes. ? To prevent vomiting and dehydration. Follow these instructions at home: Watch your symptoms for any changes. Tell your health care provider about them. Follow these instructions as told by your health care provider. Eating and drinking ? Take an oral rehydration solution (ORS). This is a drink that is sold at pharmacies and retail stores. ? Drink clear fluids slowly and in small amounts as you are able. Clear fluids include water, ice chips, low-calorie sports drinks, and fruit juice that has water added (diluted fruit juice). ? Eat bland, svbv-ne-tutals foods in small amounts as you are able. These foods include bananas, applesauce, rice, lean meats, toast, and crackers. ? Avoid drinking fluids that contain a lot of sugar or caffeine, such as energy drinks, sports drinks, and soda. ? Avoid alcohol. ? Avoid spicy or fatty foods. General instructions ? Take pfxq-ywu-xxbmjbe and prescription medicines only as told by your health care provider. ? Rest at home while you recover. ? Drink enough fluid to keep your urine pale yellow. ? Breathe slowly and deeply when you feel nauseous. ? Avoid smelling things that have strong odors. ? Wash your hands often using soap and water. If soap and water are not available, use hand charcoal burner beehive kiln. ? Make sure that all people in your household wash their hands well and often. ? Keep all follow-up visits as told by your health care provider. This is important. Contact a health care provider if: ? Your nausea gets worse. ? Your nausea does not go away after two days. ? You vomit. ? You cannot drink fluids without vomiting. ? You have any of the following: ? New symptoms. ? A fever. ? A headache. ? Muscle cramps. ? A rash. ? Pain while urinating. ? You feel light-headed or dizzy. Get help right away if: ? You have pain in your chest, neck, arm, or jaw. ? You feel extremely weak or you faint. ? You have vomit that is bright red or looks like coffee grounds. ? You have bloody or black stools or stools that look like tar. ? You have a severe headache, a stiff neck, or both. ? You have severe pain, cramping, or bloating in your abdomen. ? You have difficulty breathing or are breathing very quickly. ? Your heart is beating very quickly. ? Your skin feels cold and clammy. ? You feel confused. ? You have signs of dehydration, such as: ? Dark urine, very little urine, or no urine. ? Cracked lips. ? Dry mouth. ? Sunken eyes. ? Sleepiness. ? Weakness. These symptoms may represent a serious problem that is an emergency. Do not wait to see if the symptoms will go away. Get medical help right away. Call your local emergency services (911 in the [place] Do not drive yourself to the hospital. Summary ? Nausea is the feeling that you have an upset stomach or that you are about to vomit. Nausea on its own is not usually a serious concern, but it may be an early sign of a more serious medical problem. ? If vomiting develops, or if you are not able to drink enough fluids, you are at risk of becoming dehydrated. ? Follow recommendations for eating and drinking and take bvmk-nfw-vhxgzts and prescription medicines only as told by your health care provider. ? Contact a health care provider right away if your symptoms worsen or you have new symptoms. ? Keep all follow-up visits as told by your health care provider. This is important. This information is not intended to replace advice given to you by your health care provider. Make sure you discuss any questions you have with your health care provider. Document Released: 09/12/2005 Document Revised: 01/13/2019 Document Reviewed: 01/13/2019 [employer] Patient Education ? 2019 [employer]. Normal [facility] Giardia, Direct, EIAon 10-25 G. lamblia Ag IA Ql (Stl) Negative Invalid Interpretation Code Negative [facility] Comment on above: Result Comment: Perf ormed at: [facility] [id number] PhD Scarlet Montemayor Performed By: #### 3 [id number] ####[facility] [address] [place] [address] O & P EXAM, ROUTINE, REFLEXo n 10-25-2022 Ova and parasites identified Concentration Nom (Stl) Comment Invalid Interpretation Code [facility] Comment on above: Result Comment: No o va, cysts, or parasites seen. One negative specimen does not rule out the possibility of a parasitic infection. Performed at: [facility] [id number] PhD Scarlet Montemayor Performed By: #### 3 [id number] ####[facility] [address] [place] [address] O & P Exam, Routineon 2022 Ova and parasites identified LM Nom (Unsp spec) Final report Invalid Interpretation Code [facility] Comment on above: Result Comment: Thes e results were obtained using wet preparation(s) and trichrome stained smear. This test does not include testing for Cryptosporidium parvum, Cyclospora, or Microsporidia. Performed at: [address] [id number] PhD Scarlet Montemayor Performed By: #### 3 [id number] ####[id number] [place] [address] Coding Summary.on 10-24-2022 Coding Summary. CD:[id number] Gh0b Ww+PGhlYWQ+KH8RDMZvZ16qq YIzxB4yR6RBHKmXEqxnPJJNJ ArNIaTcmhNiHY3apCViRXBt IC8+YU9aQARjHwuszANve5L8 mKY0G38ldg5xOSgoeBV9NSEt VsZumqwjt9kkxEv1NLbjEqcf OyBt YEIioD10UGI7rW64Sb96eJKv lHPwq8yctUp6QlBiBHUcJAS7 fUmkSScih3CbPISdL58jvQIy c2U6 GISdvLahuJEnCuIwhHU3aC5v PKlqxyvtr9tzrruaZks4iv33 mDZle8A5gUS4J8KsfvY3NGGq bGQg QinjyMAQrV0gwogpu5yfwtnc ZaCxGKVgMOl3CLb6LGZnsCgf TsUsFZ91EYM9LMAezyGyR0Tt LWFs rZrbFoB9s3P1Om9LN2JTLnoq I2UUYWXALNrjxXZ+ZP18lm78 Q6LuJwyvLdr3FHQoVEX4qPF3 aD0n VWVoVAkco1C9yWS5O1ZvgzAn pn6jd5rrKXUtGAixH50yvUYt o5T4UIAueOC9FHFwaAuqXxQo aG93 Oyc+SENnlGpwz6UaCtirq8ld l3mwsYs6ImaaDOSncoJnvTkk LSK8j6GyJv0kUGEheKP7kWA1 aD0i BrJzRgZ9ACitN695QpDspCPc EuadM25zG2JpiXP+PHRyPjx0 VFGwiLcnXK6lD2YlQZSjlwrq bGVm cPpjSO7bKLAwwzixFVSyzH8r DTIsB3s8BxUfOdF2NUcpH2Dn UFHcpejjUf36jD3iLqGtXgV1 MGlu K4UsxaK7RVQhjONrHOmmHRX6 X32mh5D5HAGzZRQqTSN0mOW9 fS3isOmuivyetMIfvGcymzRb dGlj HObwRSdhI161ISVwhWxuIpIt ZGluZyBEYXRlOiAgMDMvMDgv MjAyMzwvdGQ+VLCvRBB8aQap PSAn hXZvVNmnGq2wdMjnaNxwTG5w JXRzypumVQHysF5mDHSoiBYy hDlyXU5wLCQsidkjn687AsMv MHB0 SKLnbSTcR3AihZ6gMcOkNORj OVTnK3KoeBHjOZmaL307MDtb MvL9ZNYeghEbL5MhLLYyzCer OiB0 m8C8Ky3Od0TxsowxY4WwtBMp OxYjUlosPTr7Q0NnPuecrEF+ DR18XULuIR19EIy8ZFS5sJbp PSdi GPQjX0VqfK4bRoVmOWGvIZTj Oyc+PHRhYmxlIHdpZHRoPScx PIAzSlBxcWmiFI1uDv7iSEAg LWNv rGdxeMNzOcBzq6rzULBaGNzf UN2rpPogI9MucGF5MKPyp9v3 On88D19lD5BtjXB+PGNvbCB3 aWR0 aH0mRfQzYfB9ORofV243NyEr rQLeXpagx2hvd6minFd6GjE1 UBXudfBicFriYSG3h6LxDa42 Y29s IHdpZHRoPSIxNSUiIHZhbGln yr8liF4kQe8+ZLIvsQA7kDX2 lY8sUaBlWmV3QVgwF225YmXw cCIv Hfgrh1ght5rumJu7NcBiAJIm cqDibWmbTZB8k3KqIs46D8Hj bUetz8VlJzo4pr52oYDep0K1 bGU9 A8OfPHIbjwjcbCSyeJujVK2a TWBlmlyiRZNlsS4bMXAxY5d9 GxGaRpZ6SAmsN3PdmxG4MFYd bGQg DFPgbUUCtJ1lzgigt7ribcdv NaAiBRWjMYb9MCd2GEWuuYdi RqPxZIG4MgS5OJQ9jLVdaG7u bGln hbutsF6uRyi+BFH2sOMdsLFO AR4vXonggMM+HBUdGQX2nMqu FIjhFJVdpI2yBZLtZ0g5IxDy LjA1 LRpkD2PrehS2ZIHdxSSiANHg bMXGwZ3bkntxk6twqyqqKnDn HNBrUAh9YZj5RHYqsTmuYxJr ZWZ0 IoE3GFW2tYQnvJ5yqEvligzi iD8bLeh+JscicZehFCY6MUx6 V2GvKcs3AVPylEdcZM4suJMq ZGlu Vr7stJngkYcmRY1gHKOesxlu a374IdBtc6hhKCZspFGzWUjv PQD2N94hx0L0GBEkFTYvEIP4 dGV4 wB6iaDvrnriqhNXsqAvcxtFu oOkkADxzLStdG074AWQlgNzl EbYcBNe8Z1QfQbf9GYMseBpg ZT0n iODeXPtuSg6tlKavuQctQU1i LOZnwtuuy671IpPbw7amFARa sYKcLBdmMHI8S87ib4L5HQFi MDAw IKD6bCH7wV7iuUzwawczvEOz zHqkqsPiuBwrCRcmWExvV077 IZJatQwfRaLscUo2P3LkAkb6 ZCBz tHffMD4szOVnHExqSx2luUhw lPxzYQ1eGZHsqgcck064GrLl v7ybIHOlnYRwKPlnUZF7Z97k b3I6 PPLcBGRpQUL5xKP6bP8hvSaq bjogbGVmdDsgdmVydGljYWwt VOteT020KTQjeFliLyUrnGds bnQg DGjdUGg5Q7IpKwamsLC+PC90 GLLkKD12yNHioZUyc0azuVp8 FnYiUONjXPC0sSfxFVjge6Pl ZXIt X20rfCJzw6E9XERslSfokHXn JzTdhOO6hC9rAHvcqikoj7et hnwsFzbat6wrmb14oF22C86s IHdp MBWyTJHtDROlMUNpvArivn1g yU4qTw1+ULRdfNX8sTA0kL9r RGDxFmX1LGjiM259ArOinYHj Pjxj y2mqh9ijhQz1GaZ6PFFymqEd oWlrTOK8k9AxDm68C68sIIhl RWMjRPMoZNUwZHYwdUkbwt3e dG9w Ii8+BDPksNT5mXT3qO6xTxHv VbX3BJoeI433NwRxdYRiSndm Q60sB6DsrUT+UKRdObc4VAPx dHls IX6jzEOwXRyjOe4iRFG4VqYq VuBbQHvvM4FqOIPvveqomxcr uWV0DXEpLVMvtD11Sc0tbYbf MTBw vTMTdC3uoslux5zgqbzkKiZn DIPqXQl7CLl7LRAmnMlcYpHt QLQ1GeG1IKR1fQWmoL1xaZzz bjog tV4dS3DfZQTgpzkkVm70cO7v RaHaZiD3UIaiMwv+UEFSSVNI NLXVGK7ATSS4L9AuChg9LMPl dHls JM1mqGOiIDleKt6czBqfvAcy IQ4iRBQdiamiZUWpxT9bMUOe oSNrhUraFI0aZPNoctmhq358 OiAx CQN7WEAtnNWhG2JbhY7aZfVb VCCcCJMcC4VshZZfZQjvJ105 MPlzCmO5RGFywaAzZ8LrTGDw aWdu TjF7p0R9Rx2aKw9lBI5vJDbt XK65PR55mVEnp2O7uRI3L2Gy JBUkdrmplynhfGK2JZFlUMBb aW47 sWWyWOqzIj5fm9R2o249JHNv BSXlbT47Wj5epLiqKYUiqBIY yY6cfiote7zypppbEaLyOVUk MDt0 RYt5ZEFobBvyTfYaZCY5KrU5 FRT6tKEwtZ1lyQsoidimfY8j Oyc+GNOpNGYqpbY8R3AoSwg4 ZCBz aVnzZH7vrRKjIQqvDz6lvPji wMxrDB3tQURszxfhDKThqH6l MCNwzNIiaCsxOC5hJFGoadoi b250 JhEzHQH5VWItwFSaC7CccU3k RtOoTIGbOOLnQ7RfqEFlJYyp E796IRkmPyI5BXTjqePwG5Qt LWFs qIowNtB4l0Y3Fg8CCI9dxGE6 J3QiAxy1ZPSztZieRA5iyDIh WHadGo3uvQxbfAjeUD9dJQHx bjtw YVMyrC2nCVMdqXQxfUgdEO7y MRMmkazoy262KsEgWBU6JFEy gUDzM2JntI5tUrUoQFVqTULi O3Rl qVUlMNboJ797FAmeFcK1NSGz xhMbE6LoSIQhnBreDrN6l3J6 Bm4LoPUdJ2SwS8w3N1LmFyoh dHI+ HA52ZAKeSI47kFRgkAWeh3la rYq5UaIiDEJeRIS6kVkwIQiz t4SqHWZiH92dpFAby3L8WXQz bGxh uHIhJnBvmCW0xA0wLZtouqep s2raghuoGainc4lofx75gY13 X55zQIvqGJFzFULrIYRpUBIx bGln im3ovB8pOg0+BWFkgSR1uPH3 zF6oMqAbAwB0HZphM099LaOb vEImAwtvk2kya2kofEr9QfLj JSIg jqDxdQodMCV7z6TmTp36T49d IHdpZHRoPSIyMCUiIHZhbGln ol1clR0rIx5+ST3jb4kkil15 cD48 dHI+GWEnONL6uXcpGIvhJPZp zK9fERvfLfX9HYVvBwFhpX23 vZQpLUpmAp2fnIplxEgyNF3b NTBp xsazg462ClOhf1eeXSVlzIVa ZKlqHIK8G36mi3N1JPHvOTVq HJJ9cTR0lF7moCuxxcwqfSPt dDsg jfPhuHurNAziIZddR254CUNn bNwcCzMycISpE1ijeuEXBT9w OjwvdGQ+YXLmNYE4dSvhKKcx YWRk iR0sPMVhM8d5OkOiAkJ4YHsf C5ObwrR8RCXvuWJnRBLwqGQZ gZ9ucwuwj3czeocfPxDgNTIs MDt0 FGe3UZGqgQaoVkMqRMP1DpF4 BTB2zYJqvF6ezTfgekhgyY5n Oyc+RklOOjwvdGQ+PHRkIHN0 eWxl EYvaRBRxrD4qAAAjU8f1YlPh RbP5ZArlQ1LgcgZ8VDCibCSi WXYimBNXdI3ywptut4ohnkok IzAw PTUuXNc6PSn1XSPyxCfeYkLa SZQ5CeA1PYE1eLFnaG1jdKeh xfkirJ4pMnf+TVJOOjwvdGQ+ PHRk ZYU9vWizFHhkTREkjI5aJYXp X9p4CuFyRdO5DSuaA8ZdhaC4 IJLrzRErVOJrnMVEmU4lydzn b2xv tsyySsIqYBQyQXh9AFr3MCNt dKelIaMcZTS6JyW9ZWU6bDQm xO8txXzfezmrcM5aUxi+UGF5 ZXI6 SG74LX37W3OaDuszvFZgaTJ+ PHRhYmxlIHdpZHRoPScxMDAl SmOarVlzSP1dXu7xMSNcMSXc bGxh cHNl (more content not included)... [facility] C Urineon 10-22-2022 Bacteria identified Cx Nom (U) Microbiology PROCEDURE: Urine Culture [R1] SOURCE: U CleanCatch BODY SITE: COLLECTED DATE/TIME: 10/20/2022 11:40 EST RECEIVED DATE/TIME: 10/20/2022 14:44 EST START DATE/TIME: 10/20/2022 14:44 EST FREE TEXT SOURCE: in MInicath container Santos Landyr DO, DO, Kevin M. FINAL REPORTS Final Report [] Verified Date/Time: 10/22/2022 10:24 EST 3,000 cfu/ml Mixed skin contaminants Performing Locations R1: This test was performed at: [facility], [address] [place] [address], [id number] , [facility] Comment on above: Performed By: #### 2 [id number] ####[place] [id number] Fecal WBC Lactoferrinon 03-0 Fecal WBC Lactoferrin Negative Normal Negative [facility] Comment on above: Result Comment: The semi-quantitative detection of elevated levels of fecal lactoferrin is a marker for fecal leukocytes and an indication of intestinal inflammation. Performed By: #### 3 [id number] ####[facility] [address] [place] [address] Auto Diffon 10-20-2022 Basophils/100 WBC (Bld) 1.0 % Normal 0.0-2.0 [facility] Comment on above: Order Comment: Order Added by Discern Expert. Performed By: #### 2 [id number] #### [facility] [address] [place] [address] Basophils/Leukocyt es Auto (Bld) [Pure # fraction] 0.1 E9/L Normal 0.0-0.2 [facility] Comment on above: Order Comment: Order Added by Discern Expert. Performed By: #### 2 [id number], [id number] #### [facility] [address] [place] [address] Eosinophils/100 WBC (Bld) 0.4 % Normal 0.0-8.0 [facility] Comment on above: Order Comment: Order Added by Discern Expert. Performed By: #### 2 [id number], [id number] #### [facility] [address] [place] [address] Eosinophils/Leukoc ytes Auto (Bld) [Pure # fraction] 0.0 E9/L Normal 0.0-0.5 [facility] Comment on above: Order Comment: Order Added by Discern Expert. Performed By: #### 2 [id number], [id number] #### [facility] [address] [place] [address] Lymphocytes/100 WBC (Bld) 32.6 % Normal 14.0-50.0 [facility] Comment on above: Order Comment: Order Added by Discern Expert. Performed By: #### 2 [id number], [id number] #### [facility] [address] [place] [id number] Lymphocytes/Leukoc ytes Auto (Bld) [Pure # fraction] 3.9 E9/L Normal 1.0-4.0 [facility] Comment on above: Order Comment: Order Added by Discern Expert. Performed By: #### 2 [id number] #### [facility] [address] [place] [id number] Monocytes/100 WBC (Bld) 4.8 % Normal 4.0-14.0 [facility] Comment on above: Order Comment: Order Added by Discern Expert. Performed By: #### 2 [id number] #### [facility] [address] [place] [id number] Monocytes/Leukocyt es Auto (Bld) [Pure # fraction] 0.6 E9/L Normal 0.2-1.0 [facility] Comment on above: Order Comment: Order Added by Discern Expert. Performed By: #### 2 [id number] #### [facility] [address] [place] [id number] Neutrophils/100 WBC (Bld) 61.2 % Normal 36.0-75.0 [facility] Comment on above: Order Comment: Order Added by Discern Expert. Performed By: #### 2 [id number] #### [facility] [address] [place] [id number] Neutrophils/Leukoc ytes Auto (Bld) [Pure # fraction] 7.4 E9/L Normal 2.0-7.5 [facility] Comment on above: Order Comment: Order Added by Discern Expert. Performed By: #### 2 [id number], [id number], [id number], [id number] #### [facility] [address] [place] [address] BMPon 10-20-2022 Creatinine [Mass/Vol] 1.1 mg/dL Normal 0.5-1.3 [facility] Comment on above: Performed By: #### 2 [id number], [id number], [id number], [id number] #### [facility] [address] [place] [address] Urea nitrogen [Mass/Vol] 7 mg/dL Normal 5-21 [facility] Comment on above: Performed By: #### 2 351385, [id number], 9504119, [id number] #### [facility] [address] [place] [address] Urea nitrogen/Creatinin e [Mass ratio] 6 No Units Low 10-20 [facility] Comment on above: Performed By: #### 2 406650, [id number], 2339226, [id number] #### [facility] [address] [place] [address] Anion gap [Moles/Vol] 13 mmol/L Normal 6-16 [facility] Comment on above: Performed By: #### 2 782525, [id number], 7359045, [id number] #### [facility] [address] [place] [address] Calcium [Mass/Vol] 9.5 mg/dL Normal 8.9-11.1 [facility] Comment on above: Performed By: #### 2 735796, 28004854, 3514310, 3384845 #### [facility] [address] [place] [address] Chloride [Moles/Vol] 99 mmol/L Low 101-111 [facility] Comment on above: Performed By: #### 2 688989, 97416651, 7915117, 1684027 #### [facility] [address] [place] [address] CO2 [Moles/Vol] 26 mmol/L Normal 21-31 [facility] Comment on above: Performed By: #### 2 987236, 31815157, 9247158, 0693070 #### [facility] [address] [place] [address] Glucose [Mass/Vol] 127 mg/dL Normal 55-199 [facility] Comment on above: Result Comment: If t his glucose result represents a fasting glucose, interpretation should refer to the following reference range: 55-99 mg/dL Performed By: #### 2 746887, [id number], 5223728, 1442699 #### [facility] [address] [place] [address] Potassium [Moles/Vol] 4.0 mmol/L Normal 3.5-5.3 [facility] Comment on above: Performed By: #### 2 265044, 43479260, 3939164, 7228909 #### [facility] [address] [place] [address] Sodium [Moles/Vol] 134 mmol/L Low 135-145 [facility] Comment on above: Performed By: #### 2 299047, 86155963, 3952449, 7873526 #### [facility] [address] [place] [address] CBC w/ Auto Diffon 3 Erythrocyte distribution width (RBC) [Ratio] 18.9 % High 10.9-14.2 [facility] Comment on above: Performed By: #### 2 377125, 58759228, 1736327, 7153071 #### [facility] [address] [place] [address] Hematocrit (Bld) [Volume fraction] 39.9 % Normal 34.0-46.0 [facility] Comment on above: Performed By: #### 2 657172, 92280124, 2854059, 3536905 #### [facility] [address] [place] [address] Hemoglobin (Bld) [Mass/Vol] 12.8 g/dL Normal 12.0-16.0 [facility] Comment on above: Performed By: #### 2 020415, 90151477, 3912613, 5746741 #### [facility] [address] [place] [address] MCH (RBC) [Entitic mass] 27.6 pg Normal 27.0-34.0 [facility] Comment on above: Performed By: #### 2 142840, 66486189, 7985183, 9851421 #### [facility] [address] [place] [address] MCHC (RBC) [Mass/Vol] 32.1 g/dL Normal 31.4-36.0 [facility] Comment on above: Performed By: #### 2 013123, 18658818, 0422225, 1393198 #### [facility] [address] [place] [address] MCV (RBC) [Entitic vol] 86.0 fL Normal 80.0-100.0 [facility] Comment on above: Performed By: #### 2 353265, 88605130, 9880176, 2415395 #### [facility] [address] [place] [address] Platelet mean volume (Bld) [Entitic vol] 7.9 fL Normal 6.4-10.8 [facility] Comment on above: Performed By: #### 2 896282, 71004214, 6371915, 5714122 #### [facility] [address] [place] [address] Platelets (Bld) [#/Vol] 249.0 E9/L Normal 150.0-500.0 [facility] Comment on above: Performed By: #### 2 718925, 98210310, 6738570, 9726474 #### [facility] [address] [place] [address] RBC (Bld) [#/Vol] 4.6 E12/L Normal 4.3-5.9 [facility] Comment on above: Performed By: #### 2 598095, 68088126, 9912109, 1824393 #### [facility] [address] [place] [address] WBC corrected for nucl RBC Auto (Bld) [#/Vol] 12.1 E9/L High 4.0-11.0 [facility] Comment on above: Performed By: #### 2 966863, 72592787, 6603995, 5699164 #### [facility] [address] [place] [address] CHEMISTRYOrdered By: SYSTEM SYSTEM on 10-20-2022 Anion gap [Moles/Vol] 13 mmol/L Normal 6 - 16 mEq/L [facility] Calcium [Mass/Vol] 9.5 mg/dL Normal 8.9 - 11.1 mg/dL [facility] Chloride [Moles/Vol] 99 mmol/L Low 101 - 111 mmol/L [facility] CO2 [Moles/Vol] 26 mmol/L Normal 21 - 31 mmol/L [facility] Creatinine [Mass/Vol] 1.1 mg/dL Normal 0.5 - 1.3 mg/dL [facility] GFR/1.73 sq M.predicted among blacks MDRD (S/P/Bld) [Vol rate/Area] mL/min/1.73 m2 Normal >=59mL/min/1.73 m2 [facility] Chem S GFR/1.73 sq M.predicted among non-blacks MDRD (S/P/Bld) [Vol rate/Area] 52 mL/min/1.73 m2 Low >=59mL/min/1.73 m2 [facility] Chem S Glucose [Mass/Vol] 127 mg/dL Normal 55 - 199 mg/dL [facility] Potassium [Moles/Vol] 4.0 mmol/L Normal 3.5 - 5.3 mmol/L [facility] Sodium [Moles/Vol] 134 mmol/L Low 135 - 145 mmol/L [facility] Urea nitrogen [Mass/Vol] 7 mg/dL Normal 5 - 21 mg/dL [facility] Urea nitrogen/Creatinin e [Mass ratio] 6 mg/mg Low 10 - [address] [facility] [address] Abdomen/Pelvis w/o Contra ston 10-20-2022 CT Abdomen/Pelvis w/o Contrast Exam Date/Time: 10/20/2022 11:22 EST Reason for Exam: Abdominal pain, acute, nonlocalized;Other (please specify) Report IMPRESSION: NO ACUTE ABDOMINOPELVIC PROCESS. NO OBSTRUCTING URINARY TRACT CALCULI OR HYDRONEPHROSIS. TINY NONOBSTRUCTING RIGHT RENAL CALCULI. EXAM: CT Abdomen/Pelvis w/o Contrast History: Abdominal pain. Low back pain. Right flank pain. Technique: Multiple contiguous axial images were obtained of the abdomen and pelvis from the level of the lung bases through the ischial tuberosities without contrast. Multiplanar reformats were obtained. Comparison: CT abdomen pelvis 12/15/2019 Findings: Bilateral lung base scarring. Lack of intravenous contrast precludes optimal evaluation of the abdominal and pelvic viscera. Postsurgical changes of cholecystectomy. The visualized portion of the liver and spleen, the stomach, the pancreas, and the adrenal glands appear within normal limits given the limits of a noncontrast study. There are a few tiny nonobstructing right renal calculi. No right-sided hydronephrosis. No left-sided urinary tract calculi or hydronephrosis. Urinary bladder is well distended. The uterus is absent. Abdominal aorta is nonaneurysmal and demonstrates mild atherosclerotic calcification. No retroperitoneal or abdominal/pelvic lymphadenopathy. No small bowel obstruction. No overt colonic mass or pericolonic inflammation. Posterior changes of appendectomy. No free fluid or free air. No acute osseous abnormality. Mild degenerative changes of the spine. All CT scans at this facility use dose modulation, iterative reconstruction, and/or weight based dosing when appropriate to reduce radiation dose to as low as reasonably achievable. Report Ordering Provider: Santos Landry FINAL REPORT Dictated: 10/20/2022 11:54 am Johny Arreola DO Signed (Electronic Signature): 10/20/2022 11:54 am Signed by: Johny Arreola DO Transcribed by: MERLE Technologist: ALEK Technical Comments Rectal Contrast Given? No Oral contrast amount in ml's: 0 Normal [facility] Consent for Treatmenton Consent for Treatment [id number]: 127 Normal [facility] Discharge Instructionson Discharge Instructions [id number]: 127 Normal [facility] ED Clinical Summaryon 2022 ED Clinical Summary [address] [address] ED Clinical Summary Person Information Name: KETURAH HERRERA/NewHector Age: 52 Years : 1970 Sex: Female Language: Azeri PCP: ROBERT GIRON DO Marital Status: Visit Id: Visit Reason: Flank pain; Urinary retention; URINATION DIFFICULTY Speciality: Acuity: 3 Enc Type: Emergency Med Service: Emergency Arrival: 10/20/2022 10:32:49 Discharge: 10/20/2022 12:35:16 LOS: 000 02:03 Checkin: 10/20/2022 10:32:49 Checkout: 10/20/2022 12:35:16 Dispo Type: Home (Routine DC) EVENTS: Event Name Event Status Request Date/Time Start Date/Time Complete Date/Time Arrive Complete 10/20/2022 10:32:49 10/20/2022 10:32:49 10/20/2022 10:32:49 Document Home Meds Request 10/20/2022 10:32:49 Triage Complete 10/20/2022 10:32:49 10/20/2022 10:48:18 10/20/2022 10:48:18 Registration Complete 10/20/2022 10:35:48 10/20/2022 10:35:48 10/20/2022 10:35:48 Reg Complete Request 10/20/2022 10:35:48 Reg Bed Request Complete 10/20/2022 10:35:48 10/20/2022 10:35:48 10/20/2022 10:35:48 Bed Assign Complete 10/20/2022 10:36:16 10/20/2022 10:36:16 10/20/2022 10:36:16 Dr Exam Complete 10/20/2022 10:36:16 10/20/2022 10:40:22 10/20/2022 10:40:22 RN Exam Complete 10/20/2022 10:36:16 10/20/2022 11:24:35 10/20/2022 11:24:35 Registration Request 10/20/2022 10:40:22 Pending Labs Complete 10/20/2022 10:54:03 10/20/2022 12:07:34 Lab Complete 10/20/2022 10:54:03 10/20/2022 12:07:34 Urine Collect Complete 10/20/2022 10:54:03 10/20/2022 12:07:34 CT Complete 10/20/2022 10:54:03 10/20/2022 11:03:56 10/20/2022 11:22:15 Pending Labs Complete 10/20/2022 11:17:02 10/20/2022 11:17:02 10/20/2022 11:29:40 Lab Complete 10/20/2022 11:17:02 10/20/2022 11:17:02 10/20/2022 11:29:40 Pending Labs Complete 10/20/2022 11:23:27 10/20/2022 11:23:27 10/20/2022 11:23:32 Lab Complete 10/20/2022 11:23:27 10/20/2022 11:23:27 10/20/2022 11:23:32 Pending Labs Complete 10/20/2022 11:41:58 10/20/2022 11:41:58 10/20/2022 11:41:58 Pending Labs Collected 10/20/2022 11:57:27 10/20/2022 11:57:27 Lab Collected 10/20/2022 11:57:27 10/20/2022 11:57:27 Discharge Complete 10/20/2022 12:22:59 10/20/2022 12:35:21 10/20/2022 12:35:21 Meds Admin Complete 10/20/2022 12:31:44 10/20/2022 12:34:07 Transfer Complete 10/20/2022 12:35:21 10/20/2022 12:35:21 10/20/2022 12:35:21 ADDRESS: [address] [facility] [id number] PHYS DOC NOTES: MEDICAL INFORMATION: Prescriptions Given: New Medications [id number], [address] [place], [place] [id number], [phone] azithromycin (azithromycin 250 mg Tab 5-day Dose Pack (Z-Floyd)) 1 Packets By Mouth As Directed for 5 Days. as directed on package labeling. Refills: 0. Medications to Continue with No Changes Other Medications albuterol (Ventolin HFA 90 mcg/inh Aerosol) 2 Puffs Inhalation 4 times a day as needed Shortness of breath or wheezing. aripiprazole (Abilify 30 mg oral tablet) Reports taking 15mg daily now as prescribed by her PCP.. atorvastatin (Lipitor 40 mg Tab) 2 Tablets By Mouth at bedtime. calcium-vitamin D (Calcium 600+D) 600 / 400 mg By Mouth every day. carvedilol (carvedilol 25 mg Tab) 1 Tablets By Mouth 2 times a day for 90 Days. Refills: 3. cetirizine (Zyrtec) 10 Milligram By Mouth every day. ergocalciferol (Vitamin D 50,000 intl units (1.25 mg) oral capsule) 1 Capsules By Mouth Saturday. fremanezumab (Ajovy Autoinjector 225 mg/1.5 mL subcutaneous solution) 225 Milligram Subcutaneous once a month. lidocaine topical (Lidoderm 5% Patch) 1 Patches Topical every day. apply 12 hours on and 12 hours off daily. Refills: 0. loperamide (Imodium A-D 2 mg oral tablet) 2 mg Oral BID and 2mg after each loose stool; as needed Diarrhea. Refills: 6. meclizine 25 Milligram By Mouth 4 times a day as needed Dizziness. Oxygen (Oxygen - for Home) 3 Liter/minute Nasal Cannula every day. Oxygen - Continuous or Nocturnal Diagnosis: Portable 02 for physician visits, oxygen conservation. pramipexole (Mirapex 0.5 mg) 1.5 Milligram By Mouth 3 times a day. rimegepant (Nurtec ODT) 75 Milligram By Mouth every 24 hours as needed as needed for migraine headache. thiamine (Vitamin B1 100 mg Tab) 1 Tablets By Mouth every day. PATIENT EDUCATION INFORMATION: Instructions: Urinary Tract Infection, Adult; Antibiotic Medicine, Adult Follow up: With: Address: When: ROBERT GIRON [address] [place], [place] [id number] Business (1) In 3 days 10/23/2022 Comments: Call the office of your primary care doctor to arrange for follow-up within the above-stated timeframe. Follow-up with your primary care doctor about this ED visit. You should review your labs, imaging, and diagnoses from this ED visit with your primary care physician. If you were prescribed medications you should discuss possible side-effects and drug interactions with your pharmacist. Call 911 or go to the nearest Emergency Department if you develop any new or worsening symptoms. (more content not included)... Normal [facility] ED Note-Physicianon 10-21-19 ED Note-Physician Basic Information Time Seen: Santos Landry DO 10/20/2022 10:40 Chief Complaint pt hx of kidney stones. pain in flank. trouble urinating. COPD wears 3 liters at home. History of Present Illness 52-year-old female to the emergency department chief complaint of dysuria, urgency, frequency. Patient reports she has had this for the last 24 hours. No blood in the urine. She reports some intermittent bilateral flank pain which may be chronic per her report. She has no fever, sweats, chills. No abdominal pain. No nausea or vomiting. Review of Systems A 10 point review of systems is negative except as noted above. Medical and Surgical History: Reviewed and noted Social history: Lives at home Tobacco: Denies Physical Exam Vitals & Measurements T: 35.5 ?C(Oral) HR: 62(Peripheral) RR: 18 BP: 151/73 SpO2: 100% HT: 163 cm WT: 78.9 kg BMI: 29.7 VITALS: I have reviewed the triage vital signs. GENERAL: Well developed, well appearing adult female in no acute distress. NEURO: Alert and oriented x3. Moves all extremities. Face is symmetric and expressive. EYES: PERRL. No scleral icterus or conjunctival injection. No discharge. HENT: Normocephalic, atraumatic. Hearing is grossly intact. Nares grossly patent and without discharge. Mucous membranes moist. NECK: No JVD. Patient moves neck without restriction. CARDIO: Rhythm regular. Normal rate. No murmur, rub, or gallop. Pulses equal bilaterally in the upper and lower extremity. No lower extremity edema. PULM: Lungs clear to auscultation in all garcia. No wheezes, rales, or rhonchi. No conversational dyspnea. No splinting, stridor, or accessory muscle use. GI/: Abdomen is soft and non-tender. Normoactive bowel sounds. EXTREMITIES: Symmetric muscle bulk. No joint swelling. No clubbing, cyanosis, or deformity. SKIN: Warm and dry. Normal turgor. No rash or lesions appreciated. PSYCH: Mood, affect, and interaction is appropriate to the setting. Medical Decision Making 52-year-old female with chief complaint of UTI symptoms for the last 24 hours. Vital stable, the patient is afebrile. Abdominal examination is benign. Basic labs and CT scan are ordered. Lab work reviewed and noted. CT scan without acute findings. Urinalysis with +1 bacteria and +1 leuk esterase, given symptoms this likely represents UTI. Will send culture. Patient's allergy list is reviewed with the patient. She is allergic to a few dozen medications including antibiotics. When asked specifically about reaction she reports it made me real sick . Does not appear that she has had anaphylaxis to any antibiotic but she is unable to confirm. I offered the patient Keflex which I believe is reasonable and she declined. She reports she can only take azithromycin. We had a long discussion about how this is not appropriate coverage for urinary tract infection but she will not accept other antibiotic therefore we will proceed with azithromycin for treatment. Assessment/Plan Acute UTI (N39.0: Urinary tract infection, site not specified) Orders: azithromycin, = 1 packet(s), Oral, As Directed, as directed on package labeling, X 5 day(s), # 6 tab(s), Refills(s) 0, Pharmacy: [id number], 163, cm, 10/20/22 10:48:00 EST, Height/Length Dosing, 78.9, kg, 10/20/22 10:48:00 EST, Weight Dosing Automated Diff Basic Metabolic Panel CBC w/ Auto Diff CT Abdomen/Pelvis w/o Contrast eGFR Extra Blue Tube UA With Cult Reflex Urine Culture Disposition Plan Patient Discharge Condition Stable Discharge Disposition Home Discharge Prescription List Prescriptions azithromycin 250 mg Tab 5-day Dose Pack (Z-Floyd), 1 packet(s), Oral, As Directed Follow-up With When Contact Information ROBERT GIRON In 3 days 10/23/[address] [address] Business (1) Additional Instructions: Call the office of your primary care doctor to arrange for follow-up within the above-stated timeframe. Follow-up with your primary care doctor about this ED visit. You should review your labs, imaging, and diagnoses from this ED visit with your primary care physician. If you were prescribed medications you should discuss possible side-effects and drug interactions with your pharmacist. Call 911 or go to the nearest Emergency Department if you develop any new or worsening symptoms. Patient Education Urinary Tract Infection, Adult Antibiotic Medicine, Adult Problem List/Past Medical History Ongoing BMI 30.0-30.9,adult Change in bowel habits Dysuria Esophageal spasm Family history of colorectal cancer Feeling of incomplete bladder emptying Flank pain Foreign body in stomach, sequela Gastric bezoar Gastric erosions GERD (gastroesophageal reflux disease) History of kidney stones Incomplete emptying of bladder Irritable bowel syndrome with diarrhea Loose stools Mixed incontinence urge and stress Nausea and vomiting Nocturia Other urethral stricture, female Screen for colon (more content not included)... Normal [facility] Comment on above: Result Comment: Elec tronically Signed By: Santos Landry DO\.br\Date and Time Signed: 10/20/22 12:35 EST ED Patient Education Noteon 10-20-2022 ED Patient Education Note Obstetrics and Gynecology Urinary Tract Infection, Adult A urinary tract infection (UTI) is an infection of any part of the urinary tract. The urinary tract includes the kidneys, ureters, bladder, and urethra. These organs make, store, and get rid of urine in the body. Your health care provider may use other names to describe the infection. An upper UTI affects the ureters and kidneys (pyelonephritis). A lower UTI affects the bladder (cystitis) and urethra (urethritis). What are the causes? Most urinary tract infections are caused by bacteria in your genital area, around the entrance to your urinary tract (urethra). These bacteria grow and cause inflammation of your urinary tract. What increases the risk? You are more likely to develop this condition if: ? You have a urinary catheter that stays in place (indwelling). ? You are not able to control when you urinate or have a bowel movement (you have incontinence). ? You are female and you: ? Use a spermicide or diaphragm for control. ? Have low estrogen levels. ? Are . ? You have certain genes that increase your risk (genetics). ? You are sexually active. ? You take antibiotic medicines. ? You have a condition that causes your flow of urine to slow down, such as: ? An enlarged prostate, if you are male. ? Blockage in your urethra (stricture). ? A kidney stone. ? A nerve condition that affects your bladder control (neurogenic bladder). ? Not getting enough to drink, or not urinating often. ? You have certain medical conditions, such as: ? Diabetes. ? A weak disease-fighting system (immunesystem). ? Sickle cell disease. ? Gout. ? Spinal cord injury. What are the signs or symptoms? Symptoms of this condition include: ? Needing to urinate right away (urgently). ? Frequent urination or passing small amounts of urine frequently. ? Pain or burning with urination. ? Blood in the urine. ? Urine that smells bad or unusual. ? Trouble urinating. ? Cloudy urine. ? Vaginal discharge, if you are female. ? Pain in the abdomen or the lower back. You may also have: ? Vomiting or a decreased appetite. ? Confusion. ? Irritability or tiredness. ? A fever. ? Diarrhea. The first symptom in older adults may be confusion. In some cases, they may not have any symptoms until the infection has worsened. How is this diagnosed? This condition is diagnosed based on your medical history and a physical exam. You may also have other tests, including: ? Urine tests. ? Blood tests. ? Tests for sexually transmitted infections (STIs). If you have had more than one UTI, a cystoscopy or imaging studies may be done to determine the cause of the infections. How is this treated? Treatment for this condition includes: ? Antibiotic medicine. ? Grhq-wdw-ecotfbf medicines to treat discomfort. ? Drinking enough water to stay hydrated. If you have frequent infections or have other conditions such as a kidney stone, you may need to see a health care provider who specializes in the urinary tract (urologist). In rare cases, urinary tract infections can cause sepsis. Sepsis is a life-threatening condition that occurs when the body responds to an infection. Sepsis is treated in the hospital with IV antibiotics, fluids, and other medicines. Follow these instructions at home: Medicines ? Take sqyf-djh-zzsfmqj and prescription medicines only as told by your health care provider. ? If you were prescribed an antibiotic medicine, take it as told by your health care provider. Do not stop using the antibiotic even if you start to feel better. General instructions ? Make sure you: ? Empty your bladder often and completely. Do not hold urine for long periods of time. ? Empty your bladder after sex. ? Wipe from front to back after a bowel movement if you are female. Use each tissue one time when you wipe. ? Drink enough fluid to keep your urine pale yellow. ? Keep all follow-up visits as told by your health care provider. This is important. Contact a health care provider if: ? Your symptoms do not get better after 1?2 days. ? Your symptoms go away and then return. Get help right away if you have: ? Severe pain in your back or your lower abdomen. ? A fever. ? Nausea or vomiting. Summary ? A urinary tract infection (UTI) is an infection of any part of the urinary tract, which includes the kidneys, ureters, bladder, and urethra. ? Most urinary tract infections are caused by bacteria in your genital area, around the entrance to your urinary tract (urethra). ? Treatment for this condition often includes antibiotic medicines. ? If you were prescribed an antibiotic medicine, take it as told by your health care provider. Do not stop using the antibiotic even if you start to feel better. ? Keep all follow-up visits as told by your health care provider. This is important. This in (more content not included)... Normal [facility] ED Patient Summaryon 023 ED Patient Summary (Inserted Image. [place] ble to display) [place] [id number] Patient Discharge Instructions Person Information Name: KETURAH HERRERA Age: 52 Years Arrival Date: 10/20/2022 10:32:49 Discharge Diagnosis: Acute UTI Primary Care Physician: ROBERT GIRON DO Provider Information Primary Provider: Santos Landry DO Advanced Leather Sorter:None The exam and treatment you received in the Emergency Department were for an urgent problem and are not intended as complete care. It is important that you follow up with a doctor, nurse practitioner, or physician?s ssn/ssbn assistant navigator for ongoing care. If your symptoms become worse or you do not improve as expected and you are unable to reach your usual health care provider, you should return to the Emergency Department. We are available 24 hours a day. KETURAH HERRERA has been given the following list of patient education materials, prescriptions and follow-up instructions: Follow-up Instructions: With: Address: When: ROBERT WAGGONERCASEY [address] [place], [place] [id number] Transfer To ([email or web address] In 3 days 10/23/2022 Comments: Call the office of your primary care doctor to arrange for follow-up within the above-stated timeframe. Follow-up with your primary care doctor about this ED visit. You should review your labs, imaging, and diagnoses from this ED visit with your primary care physician. If you were prescribed medications you should discuss possible side-effects and drug interactions with your pharmacist. Call 911 or go to the nearest Emergency Department if you develop any new or worsening symptoms. In the event that this physician does not participate in your insurance network, please consult with your insurance company to find a nearby participating provider. Patient Education Materials: Urinary Tract Infection, Adult; Antibiotic Medicine, Adult A MESSAGE TO ALL PATIENTS REGARDING OPIOIDS PRESCRIPTION OPIOIDS: WHAT YOU NEED TO KNOW Prescription opioids can be used to help relieve spurorbj-qj-sodkrk pain and are often prescribed following a surgery or injury, or for certain health conditions. These medications can be an important part of the treatment but also come with serious risks. It is important to work with your healthcare provider to make sure you are getting the safest, most effective care. WHAT ARE THE RISKS AND SIDE EFFECTS OF OPIOID USE? Prescription opioids carry serious risks of addiction and overdose, especially with prolonged use. An opioid overdose, often marked by slowed breathing, can cause sudden . The use of prescription opioids can have a number of side effects as well, even when taken as directed: ? Tolerance?meaning you might need to take more of the medication for the same pain relief ? Physical dependence?meaning you have symptoms of withdrawal when a medication is stopped ? Increased sensitivity to pain ? Constipation ? Nausea, vomiting, and dry mouth ? Sleepiness and dizziness ? Confusion ? Depression ? Low levels of testosterone that can result in lower sex drive, energy, and strength ? Itching and sweating RISKS ARE GREATER WITH: ? History of drug misuse, substance use disorder, or overdose ? Mental health conditions (such as depression or anxiety) ? Sleep apnea ? Older age (65 years and older) ? Avoid alcohol while taking prescription opioids. Also, unless specifically advised by your health care provider, medications to avoid include: ? Benzodiazepines (such as Xanax or Valium) ? Muscle relaxants (such as Soma or Flexeril) ? Hypnotics (such as Ambien or Lunesta) ? Other prescription opioids KNOW YOUR OPTIONS Talk to your health care provider about ways to manage your pain that don?t involve prescription opioids. Some of these options may actually work better and have fewer risks and side effects. Options may include: ? Pain relievers such as acetaminophen, ibuprofen, and naproxen ? Some medication that are also used for depression or seizures ? Physical therapy and exercise ? Cognitive behavioral therapy, a psychological, goal-directed approach, in which patients learn how to modify physical, behavioral, and emotional triggers of pain and stress. IF YOU ARE PRESCRIBED OPIOIDS FOR PAIN: ? Never take opioids in greater amounts or more often than prescribed. ? Follow up with your primary health care provider. o Work together to create a plan on how to manage your pain. o Talk about ways to help manage your pain that don?t involve prescription opioids. o Talk about any and all concerns and side effects. ? Help prevent misuse and abuse o Never sell or share prescription opioids. o Never use another person?s prescription opioids. ? Store prescription opioids in a secure place and out of reach of others (this may include visitors, children, friends, and family). ? Safely dispose of unus (more content not included)... Normal [facility] Enteric Panel by PCRon 10-20 C. coli+jejuni+upsali ensis DNA REBECCA+non-probe Ql (Stl) Not detected Normal [facility] Comment on above: Result Comment: Test ing was performed utilizing reverse laborer pole crew (RT), polymerase chain reaction (PCR), and array hybridization to detect specific gastrointestinal microbial nucleic acid gene sequences associated with the following pathogenic bacteria and viruses:Campylobacter Group (composed of C. coli, C. jejuni, and C. esvin), Salmonella species, Shigella species (including S. dysenteriae, S. boydii, S. sonnei and S. flexneri), Vibrio Group (composed of V. cholera and V. parahaemolyticus), Yersinia enterocolitica, Norovirus GI/GII, and Rotavirus A. In addition, EPdetects Shiga toxin 1 gene and Shiga toxin 2 gene virulence markers. Shiga toxin producing E. coli (STEC) typically harbor one or both genes that encode for Shiga toxins 1 and 2. Campylobacter group, Salmonella species, Shigella species, Vibrio group, Rotavirus A, Shiga Toxin 1, Shiga Toxin 2, Norovirus GI/GII, and Yersinia enterocolitica were tested by Verigene nulcleic acid test. Performed By: #### 3 [id number], [id number], [id number], [id number], [id number] #### [facility] [address] [place] [address] E. coli stx1+stx2 genes REBECCA+non-probe Ql (Stl) Negative [facility] Comment on above: Performed By: #### 3 [id number], [id number], [id number], [id number], [id number] #### [facility] [address] [place] [address] Enteric Panel by PCR Negative [facility] Enteric Panel Intrl QC Pass [facility] Comment on above: Result Comment: Test ing was performed utilizing reverse laborer pole crew (RT), polymerase chain reaction (PCR), and array hybridization to detect specific gastrointestinal microbial nucleic acid gene sequences associated with the following pathogenic bacteria and viruses:Campylobacter Group (composed of C. coli, C. jejuni, and C. esvin), Salmonella species, Shigella species (including S. dysenteriae, S. boydii, S. sonnei and S. flexneri), Vibrio Group (composed of V. cholera and V. parahaemolyticus), Yersinia enterocolitica, Norovirus GI/GII, and Rotavirus A. In addition, EPdetects Shiga toxin 1 gene and Shiga toxin 2 gene virulence markers. Shiga toxin producing E. coli (STEC) typically harbor one or both genes that encode for Shiga toxins 1 and 2. Performed By: #### 3 [id number], [id number], [id number], [id number], [id number] #### [facility] [address] [place] [address] Norovirus genogroup I+II RNA REBECCA+non-probe Ql (Stl) Not detected Normal [facility] Comment on above: Performed By: #### 3 [id number], [id number], [id number], [id number], [id number] #### [facility] [address] [place] [address] Rotavirus A RNA REBECCA+non-probe Ql (Stl) Not detected Normal [facility] Comment on above: Performed By: #### 3 [id number], [id number], [id number], [id number], [id number] #### [facility] [address] [place] [address] S. enterica+bongori DNA REBECCA+non-probe Ql (Stl) Not detected Normal [facility] Comment on above: Result Comment: This test result should be correlated with clinical presentations and medical history by a healthcare provider to determine its clinical significance. Performed By: #### 3 [id number], [id number], [id number], [id number], [id number] #### [facility] [address] [place] [address] Shigella species+EIEC invasion plasmid antigen H ipaH gene REBECCA+non-probe Ql (Stl) Not detected Normal [facility] Comment on above: Performed By: #### 3 [id number], [id number], [id number], [id number], [id number] #### [facility] [address] [place] [address] V. cholerae+parahaemo lyticus+vulnificus DNA REBECCA+non-probe Ql (Stl) Not detected Normal [facility] Comment on above: Performed By: #### 3 [id number], [id number], [id number], [id number], [id number] #### [facility] [address] [place] [address] Y. enterocolitica DNA REBECCA+non-probe Ql (Stl) Not detected Normal [facility] Comment on above: Performed By: #### 3 [id number], [id number], 35614004, [id number], [id number] #### [facility] [address] [place] [address] HEMATOLOGYOrdered By: SYSTEM SYSTEM on 10-20-2022 Basophils/100 WBC (Bld) 1.0 % Normal 0.0 - 2.0 % [facility] HemeAutoSS Basophils/Leukocyt es Auto (Bld) [Pure # fraction] 0.1 E9/L Normal 0.0 - 0.2 E9/L [facility]eAuto[facility] Eosinophils/100 WBC (Bld) 0.4 % Normal 0.0 - 8.0 % [facility]eAuto[facility] Eosinophils/Leukoc ytes Auto (Bld) [Pure # fraction] 0.0 E9/L Normal 0.0 - 0.5 E9/L [facility] Lymphocytes/100 WBC (Bld) 32.6 % Normal 14.0 - 50.0 % [facility]eAuto[facility] Lymphocytes/Leukoc ytes Auto (Bld) [Pure # fraction] 3.9 E9/L Normal 1.0 - 4.0 E9/L [facility]eAuto[facility] Monocytes/100 WBC (Bld) 4.8 % Normal 4.0 - 14.0 % [facility]eAuto[facility] Monocytes/Leukocyt es Auto (Bld) [Pure # fraction] 0.6 E9/L Normal 0.2 - 1.0 E9/L [facility] Neutrophils/100 WBC (Bld) 61.2 % Normal 36.0 - 75.0 % [facility]eAuto[facility] Neutrophils/Leukoc ytes Auto (Bld) [Pure # fraction] 7.4 E9/L Normal 2.0 - 7.5 E9/L [facility] HEMATOLOGYOrdered By: Shahnaz Diamond on 10-20-2022 Erythrocyte distribution width (RBC) [Ratio] 18.9 % High 10.9 - 14.2 % [facility] Hematocrit (Bld) [Volume fraction] 39.9 % Normal 34.0 - 46.0 % [facility] Hemoglobin (Bld) [Mass/Vol] 12.8 g/dL Normal 12.0 - 16.0 gm/dL [facility] MCH (RBC) [Entitic mass] 27.6 pg Normal 27.0 - 34.0 pg [facility] MCHC (RBC) [Mass/Vol] 32.1 g/dL Normal 31.4 - 36.0 gm/dL [facility] MCV (RBC) [Entitic vol] 86.0 fL Normal 80.0 - 100.0 fL [facility] Platelet mean volume (Bld) [Entitic vol] 7.9 fL Normal 6.4 - 10.8 fL [facility] Platelets (Bld) [#/Vol] 249.0 E9/L Normal 150.0 - 500.0 E9/L [facility] RBC (Bld) [#/Vol] 4.6 E12/L Normal 4.3 - 5.9 E12/L [facility] HemeAutoSS WBC corrected for nucl RBC Auto (Bld) [#/Vol] 12.1 E9/L High 4.0 - 11.0 E9/L [facility] HemeAutoSS UA With Cult Reflexon 2022 Bacteria LM Ql (Urine sed) 1+ /HPF Abnormal Trace [facility] Comment on above: Performed By: #### 2 [id number], [id number] ####[facility] [address] [place] [address] Bilirubin Ql (U) Negative Normal Negative [facility] Comment on above: Performed By: #### 2 505746, [id number] ####[facility] [address] [place] [address] Clarity (U) CLEAR Normal Clear [facility] Comment on above: Performed By: #### 2 840839, [id number] ####[facility] [address] [place] [address] Color (U) YELLOW Normal Yellow [facility] Comment on above: Performed By: #### 2 826324, [id number] ####[facility] [address] [place] [address] Epithelial cells.squamous LM.HPF (Urine sed) [#/Area] /[HPF] Normal 0-2 [facility] Comment on above: Performed By: #### 2 [id number], [id number] ####[facility] [address] [place] [address] Glucose Test strip (U) [Mass/Vol] Negative Normal Negative [facility] Comment on above: Performed By: #### 2 716635, [id number] ####[facility] [address] [place] [address] Hemoglobin Ql (U) Negative Normal Negative [facility] Comment on above: Performed By: #### 2 169154, [id number] ####[facility] [address] [place] [address] Ketones (U) [Mass/Vol] Negative Normal Negative [facility] Comment on above: Performed By: #### 2 251415, [id number] ####[facility] [address] [place] [address] [place].plasma/Lit hium.RBC (Bld) [Mass ratio] 0-3 Normal 0-3 [facility] Comment on above: Performed By: #### 2 035431, [id number] ####[facility] [address] [place] [address] Nitrite Ql (U) Negative Normal Negative [facility] Comment on above: Performed By: #### 2 081652, [id number] ####[facility] [address] [place] [address] pH (U) 6.0 [pH] Invalid Interpretation Code 5.0-9.0 [facility] Comment on above: Performed By: #### 2 518547, [id number] ####[facility] [address] [place] [address] Protein (U) [Mass/Vol] Negative Normal Negative [facility] Comment on above: Performed By: #### 2 896234, [id number] ####[facility] [address] [place] [address] Specific gravity (U) [Rel density] <=1.005 Invalid Interpretation Code 1.005-1.030 [facility] Comment on above: Performed By: #### 2 722715, [id number] ####[facility] [address] [place] [address] Type of Urine collection method Clean Catch Normal [facility] Comment on above: Performed By: #### 2 590922, [id number] ####[facility] [address] [place] [address] Urobilinogen Qn (U) 0.2 {Gareth'U}/dL Normal 0.0-1.0 [facility] Comment on above: Performed By: #### 2 666016, [id number] ####[facility] [address] [place] [address] WBC Auto Ql (U) 1+ Abnormal Negative [facility] Comment on above: Performed By: #### 2 654146, [id number] ####[facility] [address] [place] [address] WBC LM.HPF (Urine sed) [#/Area] 0-5 Normal 0-5 [facility] Comment on above: Performed By: #### 2 164897, [id number] ####[facility] [address] [place] [address] URINALYSISOrdered By: Osito Henderson on 10-20-2022 Bacteria LM Ql (Urine sed) 1+ /HPF Invalid Interpretation Code Trace/HPF [facility] UA Auto SS Bilirubin Ql (U) Negative (10/20/22 11:40 AM) Normal Negative [facility] UA Auto SS Clarity (U) Clear (10/20/22 11:40 AM) Normal Clear [facility] UA Auto SS Color (U) Yellow (10/20/22 11:40 AM) Normal Yellow [facility] UA Auto SS Epithelial cells.squamous LM.HPF (Urine sed) [#/Area] /[HPF] Normal 0-2/HPF [facility] UA Auto SS Glucose Test strip (U) [Mass/Vol] Negative (10/20/22 11:40 AM) Normal Negative [facility] UA Auto SS Hemoglobin Ql (U) Negative (10/20/22 11:40 AM) Normal Negative [facility] UA Auto SS Ketones (U) [Mass/Vol] Negative (10/20/22 11:40 AM) Normal Negative [facility] UA Auto SS [place].plasma/Lit hium.RBC (Bld) [Mass ratio] 0-3 /HPF Normal 0-3/HPF [facility] UA Auto SS Nitrite Ql (U) Negative (10/20/22 11:40 AM) Normal Negative [facility] UA Auto SS pH (U) 6.0 *NA* (10/20/22 11:40 AM) Invalid Interpretation Code 5.0 - 9.0 [facility] UA Auto SS Protein (U) [Mass/Vol] Negative (10/20/22 11:40 AM) Normal Negative [facility] UA Auto SS Specific gravity (U) [Rel density] <=1.005 *NA* (10/20/22 11:40 AM) Invalid Interpretation Code 1.005 - 1.030 [facility] UA Auto SS UA Spec Desc Clean Catch (10/20/22 11:40 AM) Normal [facility] UA Auto SS Urobilinogen Qn (U) 0.4477599 {Gareth'U}/dL Normal 0.0 - 1.0 EU/dL [facility] UA Auto SS WBC Auto Ql (U) 1+ *ABN* (10/20/22 11:40 AM) Invalid Interpretation Code Negative [facility] UA Auto SS WBC LM.HPF (Urine sed) [#/Area] 0-5 /HPF Normal 0-5/HPF [facility] UA Auto SS eGFRon 10-20-2022 GFR/1.73 sq M.predicted among blacks MDRD (S/P/Bld) [Vol rate/Area] mL/min/{1.73_m2} Normal >=59 [facility] Comment on above: Order Comment: Order added by Discern Expert. Result Comment: eGFR is race adjusted. AA=. Performed By: #### 2 766577, [id number], 8307165, [id number] #### [facility] [address] [place] [address] GFR/1.73 sq M.predicted among non-blacks MDRD (S/P/Bld) [Vol rate/Area] 52 mL/min/1.73 m2 Low >=59 [facility] Comment on above: Order Comment: Order added by Discern Expert. Result Comment: Head Setter stefan kidney disease could be indicated at eGFR's of less than 60 mL/min/1.73m2. Kidney failure is indicated at less than 15 mL/min/1.73m2. Performed By: #### 2 479370, [id number], [id number], [id number] #### [facility] [address] [place] [address] Coding Summary.on 10-16-2022 Coding Summary. CD:[id number] Gh0b Ww+PGhlYWQ+AY6PFWPzO47ck SDxtV1WS4rZNW3RILLDCJOVJ P3TGG5zhEE6MYfdW8XphxId MvgtjVRnZV66IOf3LWN3yErx WLgzbC3rlQTwL9e0IpTqUG82 eG21EKckDERiVxD6JgDhvgta bWFy P2ubGoTmhQJyUcc+PHRhYmxl IHdpZHRoPScxMDAlJyBzdHls IP1lYs8hQOXgWFFvzTfbfFFm OiBj b8vzSUCjLYpbOE8okTauA3Dh jRT8ICKpe0t0Re72qQU+PHRk UBA7xPdnKLouh365QdPzd5fo IDM3 mDPqNNuaCPV2W25zb6L8REOy RNXwHHL6lYM5sI1ajZruerli P9BngNEhVtJ2DTM3kHOapX9u bGln swaijG7tQnr+E09JQW3XTJQE BL4PXom6Y9KoLdnxmWJ+PC90 RGBsNP48qAShwFTiz3ewpOq2 JzEw HFQkQTI8xNfuPDyif3ZcWGMg X17dzFMin5G4TCDjzEojpUUe MhEooBA5bB4bTDgojxrng2gb dzsn Sphcj6pekv84zI20P03sGXfh TNWbIIX2LANwTEMsmQvwtj1e yC4rJh1+OTqju1xun2itfVd5 IjIw RQUmnmEweHfaCFW4z2SnEc18 E6CdjTkxm5IlYbm2be31dDQi e7L0cJW2XGhhBNVsrA2oNCow ZnQ6 ECWzZhNlwY56sARrNJyoZo7n dIjmxQeqLF7ePIHjunvhBEBs fZ0nJBYngHXjhSfvIM3iTKNz bjtm z606DlEtGXJ6EUDrdPFeF2Bj iI9cJyKsNFXfAKRuX7JosSFb XXsvP602CLrlXsW0DDKwhkYt Y2Fs FLVfqKaxLwM6z2A1Xz7Vk4Iv atvdMRF8PDkaUPTcNwF4QhXw MgV8G3AmTrf2JYRtlQnfIS3z J3Bh YULlzhsqlvaerWW8BISkMLPx xX02lCQeZAryYk1cb7Z6o270 FUMmSYYgeW66Ry9jdBbuMCRz dCBU mX5nquhup3iifjnpZaKfDRWt TJu7UMp5JDAbkAznGmMmJIT4 ClU8FEZ0pTIluG7clUfncqon dG9w Oyc+W26xbQ8hGWK7CRD4zaot HVWjbsFcCN36KB98Z0QhTaux dGFibGU+JLBitrWfeIykTG8a YmFj e2mza5LeWSnhY1EgVUWuWNcw Dwg4UWBpOZX3tBM4pG4cUPMz EWhlj7P0uSW2W3WdjjCspw7b b2xs UPTlKLlcJ96gtEJbf8I4FMTk zDD7BMTajWiyMrFgjL84Lpw+ CTTmeSlcr7OgUzlyj6fcs7oj dGg9 LzPaESRclqWzaFdwTZG6y5Do Ig55O53jEGajVEKuWYWrJFWq JPZnuHijzc7lqS9eHg4+PGNv bCB3 eHZ3pM0nGLNwEeL0PYeoF967 NpTcxULwKloyv6kna1jflXv9 KoObZBPubfVwmHleFSW1u7Xw Lz48 M26kDZxaYZNdEGSjVRFgDPCa hVirtt2adB3hZp8+TN2kx2qs nr19fD13rYL+FLKnDLA7iKro PSdw LCOipE9pAGwgImC5HDVoWpEh hU91rHTpXAzyQv4vyKcwaVhz CS6tIWBychlld200LhUdk0fb IDEw tLMyUXmfGKQ5G02db0K2IMTr GYFzFCB2qWX1uQ4kdEkjzkpo bGVmdDsgdmVydGljYWwtYWxp Z246 IHRvcDsnPlBhdGllbnQgTmFt KZk9X3QxLqk5JAPiwUnsQD7r xSOiQUnxYi6beCtjdBbuVZ3l NTBp qfsjh123YnBjg3rqLCShzIYq LEwxBZK5M23vq0R1TYGvVGXz TGC2eXW0cN0xgYdhrwfjlCMi dDsg knUvpPkqSWntDGlkB081YCFa dZczFeMrlkKpRNYkcUC7SU54 UY07aGNni8C6pPH0K7HkCGCj bmct ckapfSC5KMFvQJWtaU59Yt9r sWguEq7xFWTxOIM5LTRbgCEf K0BfqR4sVlGkNEIhWVZpH4Yz eHQt FChqA318CLmcTaU8WABbkgBp G1FlJDPmrFneEuK6a6A8Dc8D R2C2VT32RB21mZGtp1D6hDW6 J3Bh WWLjtwwpcqedsKI9ISJjZIOw aY01Ni0ycCvjBz4nYUAlKVY4 LAKigWWaT5PwlW6vVcOyFTTi MDAw Z2KtmGTkYJhuT483RPilWiX9 MAEexmCgO3FbNGJptVdfFjV7 h0M6Vs3TTWc2UH07LZ40tCEn c3R5 cRK4B2XnRXMkwgkyvqybhZA9 ZHFaTAIcsT97Tz4qsGjaEv3g AHWsLGK6KIMfjBYgT7UjzT7d OiAj MIUpJITbM1HhpDFfDHebX261 HGjiMzD1HAJmlgScN3ZoYOOl wTzdScC9p3U9In2WRIAsZV87 IFR5 uEB3UP62GG38F3XkPenolEZn bGU+PHRhYmxlIHdpZHRoPScx GOQnJoRllOhtPM7dPu2oXRMr LWNv eOtvoWOzJgPqx7otCPEzIHnd TH5prJusG4QayIY6UYPmz8v0 Gw26W61pZ6BrgTA+PGNvbCB3 aWR0 zO4mQxKjJhD9SZwuC998LpRx jBLyTymui9ujr0iygQz6PnC8 KNJtgpScyAysHNU8a6CtJd88 Y29s IHdpZHRoPSIxNSUiIHZhbGln tf7zaX9vKc4+JUZpbGF6aYB5 mX6eZcCwWiJ9QRujF865TrLx cCIv Gwrti5ktd3yhrQi5XvWrTTYx kiAkaIhsUKN4h4JuEr02G7Xs bMnrz7WkIpd5dz69tKTdk4X5 bGU9 D5GdEQKplwwcdTBieSggYN4w YIYsrntbTCGtnN3lYYSxO4k1 HeMhPlS0ATqaJ3HeftP7RALa cHQg MSozHNM3R32gp6C9FXDhAPMy VNF2yIT4uI3kwEebjbseuREb dKhujcHlcXgvFMsdGZfeK830 IHRv qCpvHVVvpX2wKCBmtXKxjCqe HS3iGPZtvtjzUuOKXerUYRqn UQGKZVoXAO97QA18cBOba7L7 bGU9 M4VqNLPmzrqxofyadJN6HCRh ADUsuG07uLKiOKgfEq5ox3D1 v098FAOvBWYjpQ57Zw1nbQzv MTBw dRSSbF5ogwcfh1eydkjiRkAv GFJrWIl7MIj9DBDyaYtcJoVk OHI6KaE6TOB8vNKzmW6meCbi bjog aK4lTsj+MHXlGBQjSKx9XOdp dGQ+DELwYZJ8oHbpABpxPXEx oI2uBEQtU5v7PnJdTaP7HWil O3Bh QUFvgkxpLk98zG2bIgMcKhO5 HShqT2FjvxM8EDLtjHMpKAdw FYS0X41gh1T2VPYrPMWaOZP4 dGV4 xI6cpCwgjrbewNVwzNsluyOf cCtfDCieVXpcS556VNQzcIzv GbExCXunRCFtHQ23CI81fCIh c3R5 lEM8X9DmFKAfokbyqsukbQL3 NVCsCURgpD06tKUmWJghUu2r z1B5j917VXEsQYNgkP98Hy7h dDog ABBbhILLqX8dotvgf7bhlwub QkDlROXkPId4OGq3ZRQgnNsj UnClRYL4OcC3ALQ5cVUnqX2s bGln qsswjQ2zGci+UqRkKEerJK25 MK53xCLow6K0wZH6O5JuENQb giqoaiosaRW4OPJgXBDzjE62 cGFk OZyuOq4aj3Z8q862RVOwPWTn dA14Wv7ktJfaBKZqpDWDzG1c zxazb4kahhshEwCzKPRvXCa9 ZXh0 MBNxpQhtBsSuYEB4PmR2MIH1 xSGxrQ1euQfwejhxpZ2pZqo+ KB6hdpggpuP0RR69KC56E7Te Pjwv dGFibGU+PHRhYmxlIHdpZHRo EYrrALKnRdIofVqqKM1wNp3w KXAkRYEtqMzhqFAkRrSjc9gk YXBz YLriEQ2syAieE9KvpRB9SYMk z0f9Kw67C40oU6TbrIC+PGNv iGY9dIE6nU0vQtEwWoI8VXxn Z249 PlKcdJTdWhmlr2npz5cmcJl8 NlJzZYZoyaXhcKkwIKZ8t3Xo Fc35S12wGEblSNYhWMFlSSAs IHZh cThkvq6rsU0nEx8+PGNvbCB3 vEO5eZ8cIdAvMwZ9QFstL213 HkYanWPgGkgjC62uV3RtjEV+ PHRy Poy3MUHozIagHH9ejNAdIKvh Ly1aWPV4YvGtYiPiBAaoH8Km WIKgxtedguzjxMC3YTWnWTRe aW47 Gd6qrQqsDw8tDTUwKSL0KLMl aVGdW9MlcH8aMeTuBGZsBDOm E0KwdRVxJKvwZ768MKovMzM2 IHZl llEsW3UvNAPvcPfvRlQ2u6R3 Kt6HlQdxkWCeZA6rHiOvXIs1 H7QeUxi9IOBsaJpvFH9iwGUv ZGlu Oy9uiZylqGpmKV8mMGQhcbbf j388JuSuy3gcMONvlUPeTXol ZFF7Y40mn5Y9DUCyPFXsILN9 dGV4 dP2ssAvefmrplCXvbLdtqdSi kVvmFLszNTypM772HQAjfRoa EuOWAzx3U5ZkRjb4AENquUvc ZT0n fAZzZZctEg1vqDzbdPpzGE7e ZKOkkotvn884RpSuq6rbKZGw vCWyULofEPM7G06bj4N8VWWf MDAw FRD3fSL6hW4nzGltkklzyMHs qScwelJqyAkdBVcfHWrfG313 ZBOmdNtdHe5JKrx1H1TiMon9 ZCBz yZtuLG0lsGIeIJpeVw9bfQfn jZykQC1fOVMahextr927AwTp j8pfJVBouFDuABufUBI9P59e b3I6 HMInZRLzWOI6tYW9vX6ltHzh bjogbGVmdDsgdmVydGljYWwt FCcyC606HHAphIjyMaDwiSUl Ojwv dGQ+YN71jw71V2HoShkuGqq9 BTOmAAP2uTM3xS3cCPEhPSoh f7R6mHY7Q0FsjeShaf2xz0up YXBz ZTog (more content not included)... Normal [facility] Consent for Treatmenton 09-20 Consent for Treatment [id number]: 127 Normal [facility] Discharge Instructionson Discharge Instructions [id number]#[id number] :127 Normal [facility] ED Clinical Summaryon 2022 ED Clinical Summary [place] [id number] ED Clinical Summary Person Information Name: KETURAH HERRERA/[facility] Age: 52 Years : 1970 Sex: Female Language: Azeri PCP: ROBERT GIRON DO Marital Status: Visit Id: Visit Reason: Back pain; PAIN IN BACK AND DOWN BOTH LEGS Speciality: Acuity: 4 Enc Type: Emergency Med Service: Emergency Arrival: 10/12/2022 12:54:34 Discharge: 10/12/2022 14:58:29 LOS: 000 02:04 Checkin: 10/12/2022 12:54:34 Checkout: 10/12/2022 14:58:29 Dispo Type: Home (Routine DC) EVENTS: Event Name Event Status Request Date/Time Start Date/Time Complete Date/Time Arrive Complete 10/12/2022 12:54:34 10/12/2022 12:54:34 10/12/2022 12:54:34 Document Home Meds Request 10/12/2022 12:54:34 Triage Complete 10/12/2022 12:54:34 10/12/2022 13:10:21 10/12/2022 13:10:21 Bed Assign Complete 10/12/2022 13:10:43 10/12/2022 13:10:43 10/12/2022 13:10:43 Dr Exam Complete 10/12/2022 13:10:43 10/12/2022 13:17:38 10/12/2022 13:17:38 RN Exam Complete 10/12/2022 13:10:43 10/12/2022 13:42:06 10/12/2022 13:42:06 Registration Complete 10/12/2022 13:17:38 10/12/2022 13:29:58 10/12/2022 13:29:58 Dr Exam Complete 10/12/2022 13:18:05 10/12/2022 13:18:05 10/12/2022 13:18:05 Reg Complete Request 10/12/2022 13:29:58 Reg Bed Request Complete 10/12/2022 13:29:58 10/12/2022 13:29:58 10/12/2022 13:29:58 Meds Admin Complete 10/12/2022 14:37:30 10/12/2022 14:54:16 Discharge Complete 10/12/2022 14:38:54 10/12/2022 14:58:36 10/12/2022 14:58:36 Transfer Complete 10/12/2022 14:58:36 10/12/2022 14:58:36 10/12/2022 14:58:36 ADDRESS: [address] [place] [address] [address] [facility] [id number] [facility] DOC NOTES: MEDICAL INFORMATION: Prescriptions Given: New Medications Printed Prescriptions lidocaine topical (Lidoderm 5% Patch) 1 Patches Topical every day. apply 12 hours on and 12 hours off daily. Refills: 0. tizanidine (Zanaflex 4 mg oral capsule) 1 Capsules By Mouth 3 times a day for 5 Days. Refills: 0. Medications to Continue with No Changes Other Medications albuterol (Ventolin HFA 90 mcg/inh Aerosol) 2 Puffs Inhalation 4 times a day as needed Shortness of breath or wheezing. aripiprazole (Abilify 30 mg oral tablet) Reports taking 15mg daily now as prescribed by her PCP.. atorvastatin (Lipitor 40 mg Tab) 2 Tablets By Mouth at bedtime. benztropine (benztropine 0.5 mg oral tablet) 1 Tablets By Mouth every day. calcium-vitamin D (Calcium 600+D) 600 / 400 mg By Mouth every day. carvedilol (carvedilol 25 mg Tab) 1 Tablets By Mouth 2 times a day for 90 Days. Refills: 3. cetirizine (Zyrtec) 10 Milligram By Mouth every day. ergocalciferol (Vitamin D 50,000 intl units (1.25 mg) oral capsule) 1 Capsules By Mouth Saturday. fremanezumab (Ajovy Autoinjector 225 mg/1.5 mL subcutaneous solution) 225 Milligram Subcutaneous once a month. fremanezumab (Ajovy) furosemide (Lasix) 20 Milligram By Mouth every day. glimepiride (glimepiride 4 mg Tab) 1 Tablets By Mouth every day. hydrOXYzine 50 Milligram By Mouth 4 times a day. loperamide (Imodium A-D 2 mg oral tablet) 2 mg Oral BID and 2mg after each loose stool; as needed Diarrhea. Refills: 6. meclizine 25 Milligram By Mouth 4 times a day as needed Dizziness. metformin (metformin 500 mg Tab) TAKE ONE TABLET BY MOUTH TWICE A DAY. montelukast (montelukast 10 mg Tab) 1 Tablets By Mouth every day. naratriptan (naratriptan 2.5 mg Tab) 1 Tablets By Mouth As Directed as needed Migraine headache. nortriptyline (nortriptyline 25 mg Cap) TAKE ONE CAPSULE BY MOUTH IN THE MORNING AND TAKE THREE CAPSULES AT BEDTIME. omeprazole (omeprazole 40 mg Cap-DR) TAKE ONE CAPSULE BY MOUTH ONCE DAILY BEFORE MEAL. Oxygen (Oxygen - for Home) 3 Liter/minute Nasal Cannula every day. Oxygen - Continuous or Nocturnal Diagnosis: Portable 02 for physician visits, oxygen conservation. pantoprazole (Pantoprazole [address] Tab) 1 Tablets By Mouth every day for 90 Days. Refills: 0. pilocarpine (pilocarpine 5 mg Tab) TAKE 1 TABLET BY MOUTH THREE TIMES DAILY.. polyethylene glycol 3350 with electrolytes (NuLYTELY Aquino oral powder for reconstitution) 240 mL Oral Daily. Refills: 0. pramipexole (Mirapex 0.5 mg) 1.5 Milligram By Mouth 3 times a day. rimegepant (Nurtec ODT) 75 Milligram By Mouth every 24 hours as needed as needed for migraine headache. solifenacin (Vesicare 10 mg Tab) 1 Tablets By Mouth every day. Refills: 5. thiamine (Vitamin B1 100 mg Tab) 1 Tablets By Mouth every day. PATIENT EDUCATION INFORMATION: Instructions: What You Need to Know About Chronic Back Pain Follow up: With: Address: When: [facility]IRON [address] [facility] [place] [id number] [facility] (1) In 3 days 10/15/2022 Comments: Call the office of your primary care doctor to arrange for follow-up within the above-stated timeframe. Follow-up with your primary care doctor about this ED visit. You should review (more content not included)... Normal [facility] ED Note-Physicianon 10-12-19 ED Note-Physician Basic Information Time Seen: Isaías Rutledge PA-C 10/12/2022 13:17 Chief Complaint pt presents with chroinc back pain and awaitng pain mangt appt. pt vebralized low back pain that radiates into both legs. History of Present Illness Patient is a 52-year-old female with history of chronic low back pain who presents ED with complaint of exacerbation of chronic low back pain. Patient reports that she is a former pain management patient who is currently trying to establish again with pain management. Patient reports that she has had unbearable lumbar back pain which radiates down both her right and left legs but is worse on the right which has been worse over the last 2 to 3 days. Patient denies any new injuries. Patient denies any fevers or chills. Patient denies any saddle anesthesia or loss of bowel or bladder function. Patient reports she is not been taking any [id number] medication at home. Review of Systems Full 10 system ROS performed. Pt denies symptoms except as noted above in the HPI. Physical Exam Vitals & Measurements T: 36.5 ?C(Oral) HR: 68(Peripheral) RR: 18 BP: 126/71 SpO2: 98% HT: 163 cm WT: 77 kg BMI: 28.98 General: Pt is in NAD, nontoxic appearing. Afebrile. Skin: Pt skin is warm and dry, no rashes or lesions appreciated. No appreciable track stevens or any other gross sign of IV drug use. HEENT: Atraumatic, normocephalic. Pulmonary: Breathing normally, no respiratory distress Cardiovascular: Distal pulses palpable in upper and lower extremities bilaterally Gastrointestinal: +BSX4. Abdomen soft, nondistended, nontender. No peritoneal signs present. Musculoskeletal: Pt has full ROM. Patient is 5 out of 5 strength in lower extremities bilaterally. Patient has no midline bony tenderness of the spine. Patient has pain on palpation of his lumbar paraspinous muscles which is worse on the right. Neurological: Pt is alert and oriented. Sensation grossly intact in upper and lower extremities bilaterally. Patient with intact reflexes in upper and lower extremities bilaterally. Lymphatic: No lymphadenopathy appreciated. No peripheral edema appreciated Psychiatric: Pt is cooperative, communicative, appropriately reactive Medical Decision Making Number and Complexity of Problems Differential Diagnosis: [] [facility] Data External documents reviewed: Not applicable My EKG interpretation: Not applicable My CT interpretation: Not applicable My X-ray interpretation: Not applicable My Ultrasound interpretation: Not applicable Decision rules/scores evaluated: Not applicable Discussed with: Not applicable Treatment and Disposition ED Course: Patient presents the ED with acute on chronic back pain. Patient has no saddle anesthesia, loss of bowel or bladder function or other alarm symptoms of cauda equina or mass-effect on spinal cord. Patient without history of vascular disease or alarming aspects of history (such as associated abdominal pain, or syncope) to raise red flags for AAA. patient with no alarm aspects of history (no IV drug use, no history indicating immunocompromised) or signs/symptoms (fever or other symptoms of infectious illness) of systemic infectious process indicating possible infectious lesion affecting spine. Patient without history or physical exam findings concerning for possible fracture. Patient without history or physical exam findings concerning for possible cancerous process. Patient given appropriate analgesia in the ED as well as prescription and instructions on appropriate analgesia at home. Patient instructed on return precautions to the ED including any alarm symptoms of cauda equina or spinal stenosis, infectious process, malignancy, fracture, or any other alarming signs or symptoms. Patient instructed to resume normal activity as tolerated as soon as possible. Patient to follow-up with primary care for ongoing management of chronic pain if necessary. Patient discharged home. Shared decision making: As above Code status: Not addressed during this visit Assessment/Plan Chronic pain (G89.29: Other chronic pain) Orders: lidocaine topical, 1 patch(es), Patch, TransDermal, Once, Stop date 10/12/22 14:37:00 EST, STAT, Start date 10/12/22 14:37:00 EST lidocaine topical, 1 patch(es), Topical, Daily, 7 EA, Refill(s) 0, apply 12 hours on and 12 hours off daily metaxalone, 800 mg = 1 tab(s), Tab, Oral, Once, Stop date 10/12/22 14:37:00 EST, STAT, Start date 10/12/22 14:37:00 EST, 10/12/22 14:37:00 EST tizanidine, 4 mg = 1 cap(s), Oral, TID, X 5 day(s), # 15 cap(s), Refills(s) 0 Medications Administered Given Lidoderm 5% Patch, 1 patch(es), TransDermal Skelaxin 800 mg Tab, 800 mg, Oral Disposition Plan Patient Discharge Condition Stable Discharge Disposition To home Discharge Prescription List Prescriptions Lidoderm 5% Patch, 1 patch(es), Topical, Daily Zanaflex 4 mg oral capsule, 4 mg= 1 cap(s), Oral, TID Follow-up With When Contact Information ROBERT GIRON In 3 days 09/20 (more content not included)... Normal [facility] Comment on above: Result Comment: Elec tronically Signed By: Isaías Rutledge PA-C\.br\Date and Time Signed: 10/12/22 15:27 EST\.br\Electronically Co-Signed By: Santos Landry DO\.br\Date and Time Co-Signed: 10/12/22 19:19 EST ED Patient Education Noteon 10-12-2022 ED Patient Education Note Orthopedics What You Need to Know About Chronic Back Pain Long-term (chronic) back pain is back pain that lasts for 12 weeks or longer. It often affects the lower back and can range from mild to severe. Many people have back pain at some point in their lives. It can feel different to each person. It may feel like a muscle ache or a sharp, stabbing pain. The pain often gets worse over time. It can be difficult to find the cause of chronic back pain. Treating chronic back pain often starts with rest and pain relief, followed by exercises (physical therapy) to strengthen the muscles that support your back. You may have to try different things to see what works best for you. If other treatments do not help, or if your pain is caused by a condition or an injury, you may need surgery. How can back pain affect me? Chronic back pain is uncomfortable and can make it hard to do your usual daily activities. Chronic back pain can: ? Cause numbness and tingling. ? Come and go. ? Get worse when you are sitting, standing, walking, bending, or lifting. ? Affect you while you are active, at rest, or both. ? Eventually make it hard to move around. ? Occur with fever, weight loss, or difficulty urinating. What are the benefits of treating back pain? Treating chronic back pain may: ? Relieve pain. ? Keep your pain from getting worse. ? Make it easier for you to do your usual activities. What are some steps I can take to decrease my back pain? ? Take hmgi-jzk-cyhjlco or prescription medicines only as told by your health care provider. ? If directed, apply heat to the affected area. Use the heat source that your health care provider recommends, such as a moist heat pack or a heating pad. ? Place a towel between your skin and the heat source. ? Leave the heat on for 20?30 minutes. ? Remove the heat if your skin turns bright red. This is especially important if you are unable to feel pain, heat, or cold. You may have a greater risk of getting burned. ? If directed, put ice on the affected area: ? Put ice in a plastic bag. ? Place a towel between your skin and the bag. ? Leave the ice on for 20 minutes, 2?3 times a day. ? Get regular exercise as told by your health care provider to improve flexibility and strength. ? Do not smoke. ? Maintain a healthy weight. ? When lifting objects: ? Keep your feet as far apart as your shoulders (shoulder-width apart) or farther apart. ? Tighten the muscles in your abdomen. ? Bend your knees and hips and keep your spine neutral. It is important to lift using the strength of your legs, not your back. Do not lock your knees straight out. ? Always ask for help to lift heavy or awkward objects. What can happen if my back pain goes untreated? Untreated back pain can: ? Get worse over time. ? Start to occur more often or at different times, such as when you are resting. ? Cause posture problems. ? Make it hard to move around (limit mobility). Where can I get support? Chronic back pain can be a frustrating condition to manage. It may help to talk with other people who are having a similar experience. Consider joining a support group for people dealing with chronic back pain. Ask your health care provider about support groups in your area. You can also find online and in-person support groups through: ? The [place] [employer]: https://theacpa.org/Supp ort-Groups ? The U.[place] Pain Foundation: uspainfoundation.org/sup port-groups Contact a health care provider if: ? Your symptoms do not get better or they get worse. ? You have severe back pain. ? You have chronic back pain and a fever. ? You lose weight without trying. ? You have difficulty urinating. ? You experience numbness or tingling. ? You develop new pain after an injury. Summary ? Chronic back pain is often treated with rest, pain relief, and physical therapy. ? Get regular exercise to improve your strength and flexibility. ? Put heat and ice on the affected areas as directed by your health care provider. ? Chronic back pain can be challenging to live with. Joining a support group may help you manage your condition. This information is not intended to replace advice given to you by your health care provider. Make sure you discuss any questions you have with your health care provider. Document Released: 08/19/2016 Document Revised: 07/18/2018 Document Reviewed: 04/13/2017 Elsevier Patient Education ? 2019 [employer] Normal [facility] ED Patient Summaryon 023 ED Patient Summary (Inserted Image. [place] ble to display) [place] [id number] Patient Discharge Instructions Person Information Name: KETURAH HERRERA Age: 52 Years Arrival Date: 10/12/2022 12:54:34 Discharge Diagnosis: Chronic pain Primary Care Physician: ROBERT GIRON DO Provider Information Primary Provider: Santos Landry DO Advanced Leather Sorter:Isaías Rutledge PA-C The exam and treatment you received in the Emergency Department were for an urgent problem and are not intended as complete care. It is important that you follow up with a doctor, nurse practitioner, or physician?s ssn/ssbn assistant navigator for ongoing care. If your symptoms become worse or you do not improve as expected and you are unable to reach your usual health care provider, you should return to the Emergency Department. We are available 24 hours a day. KETURAH HERRERA has been given the following list of patient education materials, prescriptions and follow-up instructions: Follow-up Instructions: With: Address: When: ROBERT GIRON [facility] [place], [place] [id number] [facility] ([employer] In 3 days 10/15/2022 Comments: Call the office of your primary care doctor to arrange for follow-up within the above-stated timeframe. Follow-up with your primary care doctor about this ED visit. You should review your labs, imaging, and diagnoses from this ED visit with your primary care physician. If you were prescribed medications you should discuss possible side-effects and drug interactions with your pharmacist. Call 911 or go to the nearest Emergency Department if you develop any new or worsening symptoms. In the event that this physician does not participate in your insurance network, please consult with your insurance company to find a nearby participating provider. Patient Education Materials: What You Need to Know About Chronic Back Pain A MESSAGE TO ALL PATIENTS REGARDING OPIOIDS PRESCRIPTION OPIOIDS: WHAT YOU NEED TO KNOW Prescription opioids can be used to help relieve mvqmetlt-cb-rnzfop pain and are often prescribed following a surgery or injury, or for certain health conditions. These medications can be an important part of the treatment but also come with serious risks. It is important to work with your healthcare provider to make sure you are getting the safest, most effective care. WHAT ARE THE RISKS AND SIDE EFFECTS OF OPIOID USE? Prescription opioids carry serious risks of addiction and overdose, especially with prolonged use. An opioid overdose, often marked by slowed breathing, can cause sudden . The use of prescription opioids can have a number of side effects as well, even when taken as directed: ? Tolerance?meaning you might need to take more of the medication for the same pain relief ? Physical dependence?meaning you have symptoms of withdrawal when a medication is stopped ? Increased sensitivity to pain ? Constipation ? Nausea, vomiting, and dry mouth ? Sleepiness and dizziness ? Confusion ? Depression ? Low levels of testosterone that can result in lower sex drive, energy, and strength ? Itching and sweating RISKS ARE GREATER WITH: ? History of drug misuse, substance use disorder, or overdose ? Mental health conditions (such as depression or anxiety) ? Sleep apnea ? Older age (65 years and older) ? Avoid alcohol while taking prescription opioids. Also, unless specifically advised by your health care provider, medications to avoid include: ? Benzodiazepines (such as Xanax or Valium) ? Muscle relaxants (such as Soma or Flexeril) ? Hypnotics (such as Ambien or Lunesta) ? Other prescription opioids KNOW YOUR OPTIONS Talk to your health care provider about ways to manage your pain that don?t involve prescription opioids. Some of these options may actually work better and have fewer risks and side effects. Options may include: ? Pain relievers such as acetaminophen, ibuprofen, and naproxen ? Some medication that are also used for depression or seizures ? Physical therapy and exercise ? Cognitive behavioral therapy, a psychological, goal-directed approach, in which patients learn how to modify physical, behavioral, and emotional triggers of pain and stress. IF YOU ARE PRESCRIBED OPIOIDS FOR PAIN: ? Never take opioids in greater amounts or more often than prescribed. ? Follow up with your primary health care provider. o Work together to create a plan on how to manage your pain. o Talk about ways to help manage your pain that don?t involve prescription opioids. o Talk about any and all concerns and side effects. ? Help prevent misuse and abuse o Never sell or share prescription opioids. o Never use another person?s prescription opioids. ? Store prescription opioids in a secure place and out of reach of others (this may include visitors, children, friends, and family). ? Safely disp (more content not included)... Normal [facility] Ambulatory Visit Summaryon 0 10-02-2022 Ambulatory Visit Summary FERKETURAH Shepard :1970 Visit Date:10/02/2022 Ambulatory Visit Instructions Your Diagnosis Gastric erosions Nausea and vomiting GERD (gastroesophageal reflux disease) Loose stools Family history of colorectal cancer Your Care Team Attending Physician - Inessa Grajeda CNP Primary Care Physician - ROBERT GIRON DO This Is Your Medications List Contact prescribing physician if questions or concerns Oxygen (Oxygen - for Home) albuterol (Ventolin HFA 90 mcg/inh Aerosol) aripiprazole (Abilify 30 mg oral tablet) atorvastatin (Lipitor 40 mg Tab) benztropine (benztropine 0.5 mg oral tablet) calcium-vitamin D (Calcium 600+D) carvedilol (carvedilol 25 mg Tab) cetirizine (Zyrtec) ergocalciferol (Vitamin D 50,000 intl units (1.25 mg) oral capsule) fremanezumab (Ajovy Autoinjector 225 mg/1.5 mL subcutaneous solution) fremanezumab (Ajovy) furosemide (Lasix) glimepiride (glimepiride 4 mg Tab) hydrOXYzine loperamide (Imodium A-D 2 mg oral tablet) meclizine metformin (metformin 500 mg Tab) montelukast (montelukast 10 mg Tab) naratriptan (naratriptan 2.5 mg Tab) nortriptyline (nortriptyline 25 mg Cap) omeprazole (omeprazole 40 mg Cap-DR) pantoprazole (Pantoprazole [address] Tab) pilocarpine (pilocarpine 5 mg Tab) polyethylene glycol 3350 with electrolytes (NuLYTELY Aquino oral powder for reconstitution) pramipexole (Mirapex 0.5 mg) rimegepant (Nurtec ODT) solifenacin (Vesicare 10 mg Tab) thiamine (Vitamin B1 100 mg Tab) Procedures Performed Esophagogastroduodenosco py (03/29/2022), Peroneal tendon (11/08/2021), Esophagogastroduodenosco py (06/26/2021), Urodynamics (05/16/2021), Colonoscopy (03/14/2020), Catheterization of left heart (03/03/2020), Excision of Downey's neuroma (10/22/2018), Removal of toenail (10/22/2018), Tarsal tunnel release (05/07/2018), Right tarsal tunnel release (02/15/2016), Left instep plantar fasciotomy with division of soft tissue & fascia & muscle. (08/17/2015), right instep plantar fasciotomy with division of muscle and fascia (06/22/2015), Appendectomy, Arthroscopy of knee, Breast surgery, Carpal tunnel release, Cholecystectomy, Colonoscopy, Colonoscopy, Esophagogastroduodenosco py, Esophagogastroduodenosco py, ESWL of kidney, Excision of ganglion cyst, Hysterectomy, ingrown toenail removal, Lithotripsy, Mortons neuroma, salpingectomy with unilateral oophorectomy, Sinus, Suspension of bladder, Tarsal tunnel, Tubal ligation, Ulnar nerve decompression. Discharge Vitals Heart Rate (Peripheral) 56 Blood Pressure 136/52 Height 163 cm Height 64 in Weight 77 kg Weight 169.4 lb BMI 28.98 What to do next Scheduled Follow-Up Appointments Saturday 3:00 PM EDT With: Will WALSH, Elliott Grewal Where: Cardiology Clinic Saturday 3:15 PM EDT With: Where: [facility] Saturday 2:40 PM EDT With: Where: [facility] Saturday 1:20 PM EDT With: SHERI JIMENES PA-C Where: [facility] Gastroenterology Office/Clin ic Noteon 10-02-2022 Gastroenterology Office/Clinic Note HPI Staff Keturah is a 52 y.o. female here for changes in symptoms Patient has a hx of gastritis, N/V, loose stools- she continues with symptoms Currently prescribed pantoprazole 40 mg daily but states unsure if she is taking this Last colonoscopy attempted 09/06/22-poor prep EGD done 09/06/2022 History of Present Illness Patient is a 52-year-old female who presents for follow-up. Patient was previously evaluated 09/14/2022 and had previously called office requesting refill on antinausea medication. Review of record indicated patient was previously evaluated 10/2021 and had reported during visit that vomiting had improved with Prilosec 40 mg daily. Review of record also indicated patient had called office 08/29/2022 requesting refill for achy stomach. Patient was advised to follow-up for further evaluation of her symptoms. Patient was previously evaluated by Dr. Cramer 01/11/2022 for esophageal spasms noted on x-ray of esophagus from 11/2021. Note also indicated patient with reported difficulty swallowing that was not any worse or better. Patient was unable to complete esophageal manometry 01/2022 and was advised to proceed with EGD with dilation. EGD with dilation completed 03/29/[address] Cramer revealed esophageal contraction, normal gastric mucosa, dilated esophagus during EGD, normal gastric mucosa, small gastric bezoar, normal duodenum. Patient was previously advised per Dr. Cramer to minimize sedatives and narcotics, to chew food well, to be on low residual diet, and to drink 2 cans of diet Coca[employer]Cola daily. Note indicated per Dr. Cramer that his patient's difficulty swallowing persisted to repeat EGD with distal esophageal Botox injection. Patient was previously ordered and scheduled to have colonoscopy 12/2021?patient was noted as canceled or no-show. Previous colonoscopy 02/2020 revealed lipoma in cecum, hemorrhoids. Patient previously reported during visit with me 04/2022 that she was doing well and no longer having problems swallowing. Patient also previously reported she was having to push to have a BM and was having watery/loose diarrhea over the last 2 weeks prior. Patient was previously ordered CBC/CMP, stool testing. Patient has not completed labs or stool testing. Patient reported during most recent visit 08/2022 that she was having acid reflux 3 times a week despite taking omeprazole 40 mg daily. She also reported nausea/vomiting after eating off and on for years and had noticed more since EGD 08/2022. Was also having watery/loose stools after removal of her gallbladder that she reported was completed in 2021. Patient previously indicated she was unable to tolerate Questran in the past related to nausea/vomiting. She also indicated she does not always follow a low-fat/low fiber diet. Patient also reported having difficulty swallowing at times with solids that had improved. Patient was educated regarding low-fat/low fiber diet. EGD 09/06/2022 revealed normal esophagus, moderate antral erosions and erythema, normal duodenum, stomach biopsy revealed mild to moderate chronic gastritis and erosion, negative for intestinal metaplasia, negative for H. pylori. Colonoscopy 09/06/2022 revealed that patient's colonoscopy was aborted related to poor prep and is to have repeat colonoscopy with 2-day prep at less than 3 months. During previous evaluation with patient, 08/2022 her omeprazole was switched to pantoprazole and patient was advised to stop her omeprazole. Patient was ordered ultrasound of abdomen to further evaluate nausea/vomiting. Ultrasound of abdomen- not done. Patient was also ordered repeat colonoscopy?not done. Patient was previously ordered CBC/CMP and stool testing- not done. Family history of colorectal cancer: Patient's maternal aunt. Previous GES 06/2021 was normal. Family history of colon polyps: Denies. Personal history of colon cancer: Denies. During today's visit, patient reports she is having some improvement in acid reflux with pantoprazole 40mg daily. She explains she has acid reflux that occurs 1 time a week. She was previously having acid reflux 3 times a week with omeprazole. Is having nausea/vomiting, occurring daily that occurs after eating. Reports nausea/vomiting has been occurring off/on for years. Patient reports she has not been following low fiber/low fat diet. Is having loose stools, occurring daily over the last year. Denies mucus in stool. Denies having any further difficulty swallowing. Denies use of NSAIDs. Denies black/bloody stools, fevers/chills, and denies having any other GI complaints. Review of Systems ROS - Provider Constitutional: no fever, no chills. Skin: no Jaundice. ENMT: Yes acid reflux- see HPI for details regarding. Respiratory: no shortness of breath. Cardiovascular: no chest pain. Gastrointestinal: yes nausea, yes vomiting, yes loose stools, no GI bleeding. Physical Exam Vitals & Measurements HR: 56(Peripheral) BP: 136/52 SpO2: 100% HT: 64 in HT: 163 cm WT: 77 kg WT: 169.4 lb BMI: 28.98 Ge (more content not included)... Normal [facility] Comment on above: Result Comment: Elec tronically Signed By: Inessa Grajeda CNP\.rosi\Date and Time Signed: 10/02/22 13:01 EST Patient Educationon 10-02-19 23 Patient Education Gastroenterology Nausea and Vomiting, Adult Nausea is the feeling that you have an upset stomach or that you are about to vomit. Vomiting is when stomach contents are thrown up and out of the mouth as a result of nausea. Vomiting can make you feel weak and cause you to become dehydrated. Dehydration can make you feel tired and thirsty, cause you to have a dry mouth, and decrease how often you urinate. Older adults and people with other diseases or a weak disease-fighting system (immune system) are at higher risk for dehydration. It is important to treat your nausea and vomiting as told by your health care provider. Follow these instructions at home: Watch your symptoms for any changes. Tell your health care provider about them. Follow these instructions to care for yourself at home. Eating and drinking ? Take an oral rehydration solution (ORS). This is a drink that is sold at pharmacies and retail stores. ? Drink clear fluids slowly and in small amounts as you are able. Clear fluids include water, ice chips, low-calorie sports drinks, and fruit juice that has water added (diluted fruit juice). ? Eat bland, snfr-ua-erqbuz foods in small amounts as you are able. These foods include bananas, applesauce, rice, lean meats, toast, and crackers. ? Avoid fluids that contain a lot of sugar or caffeine, such as energy drinks, sports drinks, and soda. ? Avoid alcohol. ? Avoid spicy or fatty foods. General instructions ? Take adou-mfd-nkqikri and prescription medicines only as told by your health care provider. ? Drink enough fluid to keep your urine pale yellow. ? Wash your hands often using soap and water. If soap and water are not available, use hand charcoal burner beehive kiln. ? Make sure that all people in your household wash their hands well and often. ? Rest at home while you recover. ? Watch your condition for any changes. ? Breathe slowly and deeply when you feel nauseated. ? Keep all follow-up visits as told by your health care provider. This is important. Contact a health care provider if: ? Your symptoms get worse. ? You have new symptoms. ? You have a fever. ? You cannot drink fluids without vomiting. ? Your nausea does not go away after 2 days. ? You feel light-headed or dizzy. ? You have a headache. ? You have muscle cramps. ? You have a rash. ? You have pain while urinating. Get help right away if: ? You have pain in your chest, neck, arm, or jaw. ? You feel extremely weak or you faint. ? You have persistent vomiting. ? You have vomit that is bright red or looks like black coffee grounds. ? You have bloody or black stools or stools that look like tar. ? You have a severe headache, a stiff neck, or both. ? You have severe pain, cramping, or bloating in your abdomen. ? You have difficulty breathing, or you are breathing very quickly. ? Your heart is beating very quickly. ? Your skin feels cold and clammy. ? You feel confused. ? You have signs of dehydration, such as: ? Dark urine, very little urine, or no urine. ? Cracked lips. ? Dry mouth. ? Sunken eyes. ? Sleepiness. ? Weakness. These symptoms may represent a serious problem that is an emergency. Do not wait to see if the symptoms will go away. Get medical help right away. Call your local emergency services (911 in the [place] Do not drive yourself to the hospital. Summary ? Nausea is the feeling that you have an upset stomach or that you are about to vomit. As nausea gets worse, it can lead to vomiting. Vomiting can make you feel weak and cause you to become dehydrated. ? Follow instructions from your health care provider about eating and drinking to prevent dehydration. ? Take uecm-yly-voxgnfz and prescription medicines only as told by your health care provider. ? Contact your health care provider if your symptoms get worse, or you have new symptoms. ? Keep all follow-up visits as told by your health care provider. This is important. This information is not intended to replace advice given to you by your health care provider. Make sure you discuss any questions you have with your health care provider. Document Released: 08/05/2006 Document Revised: 11/27/2019 Document Reviewed: 01/13/2019 [employer] Patient Education ? 2019 [employer] [facility] Retail - Clinical Noteon Retail - Clinical Note [id number]: 127 Normal [facility] MG MAMM DIAGNOSTIC 3D TAJ CA Don 09-10-2022 MG MAMM DIAGNOSTIC 3D TAJ CAD Patient: KETURAH HERRERA Exam Date: 09/10/2022 : 1970 Gender:F Ordering : DR FREDERICK MAHARAJ . Admission #: [id number] Family : Order #: [id number] CLICK HERE TO VIEW EXAM RADIOLOGY REPORT PROCEDURE: MAMMOGRAM DIAGNOSTIC 3D BILATERAL CAD, 09/10/2022, 12:38 ULTRASOUND BREAST LEFT LIMITED, 09/10/2022, 13:21 COMPARISON: MG MAMM SCREEN 3D TAJ CAD, 10/23/2021. INDICATIONS: Lump in lower outer quadrant of left breast Calculator Name NCI Breast Cancer Risk Assessment Tool 5 Year Breast Cancer Risk 1.10% Lifetime Breast Cancer Risk 9.30% Personal Breast Cancer No Personal Ovarian Cancer No Treatments None Family Cancers Mother with ovarian cancer at age 60. LOCATION: [facility] BREAST COMPOSITION: Heterogeneously dense,which may obscure small masses. FINDINGS: DIAGNOSTIC CATEGORY 2--BENIGN FINDING: RIGHT BREAST: No significant suspicious finding. No significant change has occurred. LEFT BREAST: No abnormal or suspicious findings on today's mammogram. A skin surface marker localizes the palpable lump to the upper-outer quadrant mid breast. Ultrasound evaluation demonstrates a small benign appearing lymph node at the 3 o'clock position, and a tiny 3 x 2 x 1 mm cyst at the 2 o'clock position. No suspicious findings. Annual screening mammography recommended. RECOMMENDATIONS: ROUTINE MAMMOGRAM AND CLINICAL EVALUATION IN 12 MONTHS. PLEASE NOTE: A NORMAL MAMMOGRAM DOES NOT EXCLUDE THE POSSIBILITY OF BREAST CANCER. A CLINICALLY SUSPICIOUS PALPABLE LUMP SHOULD BE BIOPSIED. Dictated by: Delores Roach M.D. on 09/10/2022 at 13:46 Approved by: Delores Roach M.D. on 09/10/2022 at 13:54 Normal [facility] US BREAST LEFT LIMITEDon US BREAST LEFT LIMITED Patient: KETURAH HERRERA Exam Date: 09/10/2022 : 1970 Gender:F Ordering : DR FREDERICK MAHARAJ . Admission #: [id number] Family : Order #: [id number] CLICK HERE TO VIEW EXAM RADIOLOGY REPORT PROCEDURE: MAMMOGRAM DIAGNOSTIC 3D BILATERAL CAD, 09/10/2022, 12:38 ULTRASOUND BREAST LEFT LIMITED, 09/10/2022, 13:21 COMPARISON: MG MAMM SCREEN 3D TAJ CAD, 10/23/2021. INDICATIONS: Lump in lower outer quadrant of left breast Calculator Name NCI Breast Cancer Risk Assessment Tool 5 Year Breast Cancer Risk 1.10% Lifetime Breast Cancer Risk 9.30% Personal Breast Cancer No Personal Ovarian Cancer No Treatments None Family Cancers Mother with ovarian cancer at age 60. LOCATION: [facility] BREAST COMPOSITION: Heterogeneously dense,which may obscure small masses. FINDINGS: DIAGNOSTIC CATEGORY 2--BENIGN FINDING: RIGHT BREAST: No significant suspicious finding. No significant change has occurred. LEFT BREAST: No abnormal or suspicious findings on today's mammogram. A skin surface marker localizes the palpable lump to the upper-outer quadrant mid breast. Ultrasound evaluation demonstrates a small benign appearing lymph node at the 3 o'clock position, and a tiny 3 x 2 x 1 mm cyst at the 2 o'clock position. No suspicious findings. Annual screening mammography recommended. RECOMMENDATIONS: ROUTINE MAMMOGRAM AND CLINICAL EVALUATION IN 12 MONTHS. PLEASE NOTE: A NORMAL MAMMOGRAM DOES NOT EXCLUDE THE POSSIBILITY OF BREAST CANCER. A CLINICALLY SUSPICIOUS PALPABLE LUMP SHOULD BE BIOPSIED. Dictated by: Delores Roach M.D. on 09/10/2022 at 13:46 Approved by: Delores Roach M.D. on 09/10/2022 at 13:54 Normal [facility] XR DEXA BONE DENSITYon 08-06 XR DEXA BONE DENSITY EXAMINATION: XR DEXA BONE DENSITY, 08/06/2022 1:26 PM EST HISTORY: Menopause present COMPARISON: None. TECHNIQUE: Dual-energy X-ray absorptiometry (DEXA) bone density study performed for the axial skeleton. FINDINGS: SPINE ANALYSIS: Average bone mineral density is 1.043 g/cm2. T-score (standard deviation relative to young adult mean): -1.1 . HIP ANALYSIS: Lowest bone mineral density is within the left femoral neck, 0.732 g/cm2. T-score (standard deviation relative to young adult mean): -2.2 . IMPRESSION: World [employer] Organization Classification: Osteopenia - Moderate Fracture Risk Electronically authenticated by: DELORES ROACH Date: 2022-08-06 14:11 Normal [facility] XR CHEST 2 Von 07-04-2022 XR CHEST 2 V EXAM: XR CHEST 2 V HISTORY: Chronic dyspnea COMPARISON: 03/10/2021 TECHNIQUE: Upright PA and lateral chest x-ray FINDINGS: The heart is not enlarged and the vasculature is not distended. No acute infiltrate, effusion or pneumothorax is identified. Very slight prominence of interstitial markings seen diffusely throughout the lungs with flattening of the hemidiaphragms indicating COPD. The osseous structures are grossly intact. IMPRESSION: No acute infiltrate or evidence of cardiac decompensation. Mild chronic changes are present, and the overall appearance of the chest is unchanged. Electronically authenticated by: NICOLE ROJAS Date: 2022-07-04 14:11 Normal [facility] XR KNEE RT 4V or >on 022 XR KNEE RT 4V or > EXAM: XR KNEE RT 4V or > HISTORY: Pain in right knee . The patient had surgery and 06/06/2022 and complains of persistent pain. COMPARISON: X-ray 10/26/2014. MRI right knee 03/28/2022 TECHNIQUE: 4 views of the right knee were obtained. FINDINGS: There is no evidence of fracture or dislocation. Diffuse osteopenia is noted, and there is mild narrowing of the medial compartment. These findings are accompanied by a joint effusion. A posterior fabella bone is noted. IMPRESSION: No acute fracture or dislocation. Mild narrowing of the medial compartment. Diffuse osteopenia is noted suggesting rapid demineralization, possibly related to disuse. A joint effusion is present. No focal osseous abnormality is otherwise identified. The MRI of the knee reported a tear in the lateral meniscal cartilage. Electronically authenticated by: NICOLE ROJAS Date: 2022-07-03 18:12 Normal [facility] CBC AUTO DIFFon 04-30-2022 BASO # 0.1 103/ul Normal 0.0-0.1 [facility] Comment on above: Performed By: #### C BC ####[facility] [address] [place], [place] [address]OtDanica Taylor Basophils/100 WBC (Bld) 0.7 % Normal 0.2-2.0 [facility] Comment on above: Performed By: #### C BC ####[facility] [address] [place] [address]Dr. Soo Taylor EO # 0.1 103/ul Normal 0.0-0.7 [facility] Comment on above: Performed By: #### C BC ####[facility] [address] [place] [address]Dr. Soo Taylor Eosinophils/100 WBC (Bld) 0.4 % Critically low 0.9-7.0 [facility] Comment on above: Performed By: #### C BC ####[facility] [address] [place] [address]Dr. Soo Taylor Erythrocyte distribution width (RBC) [Ratio] 15.1 % Critically high 11.0-15.0 [facility] Comment on above: Performed By: #### C BC ####[facility] [address] [place], [place] [address]Dr. Soo Taylor Hematocrit (Bld) [Volume fraction] 43.4 % Normal 36.0-48.0 [facility] Comment on above: Performed By: #### C BC ####[facility] [address] [place], [place] [address]Dr. Soo Taylor Hemoglobin (Bld) [Mass/Vol] 14.4 g/dL Normal 12.0-16.0 [facility] Comment on above: Performed By: #### C BC ####[facility] [address] [place] [address]Dr. Soo Taylor IG # 0.06 10e3/ul Critically high 0.00-0.03 [facility] Comment on above: Performed By: #### C BC ####[facility] [address] [place] [address]Dr. Soo Taylor IG % 0.4 % Normal 0.0-0.5 [facility] Comment on above: Performed By: #### C BC ####[facility] [address] [place], [place] [address]Dr. Soo Taylor LYMPH # 5.4 103/ul Critically high 1.2-3.8 [facility] Comment on above: Performed By: #### C BC ####[facility] [address] [place] [id number]. Soo Brandon Lymphocytes/100 WBC (Bld) 36.6 % Normal 20.5-60.0 [facility] Comment on above: Performed By: #### C BC ####[facility] [address] [place] [id number]. Soo Brandon MANUAL DIFF REQ NO Normal [facility] Comment on above: Performed By: #### C BC ####[facility] [address] [place] [id number]. Soo Brandon MCH (RBC) [Entitic mass] 29.4 pg Normal 26.7-34.0 [facility] Comment on above: Performed By: #### C BC ####[facility] [address] [place] [address]Dr. Soo Brandon MCHC (RBC) [Mass/Vol] 33.2 g/dL Normal 29.9-35.2 [facility] Comment on above: Performed By: #### C BC ####[facility] [address] [place] [address]Dr. Ileneleah Taylor MCV (RBC) [Entitic vol] 88.6 fL Normal 81.0-99.0 [facility] Comment on above: Performed By: #### C BC ####[facility] [address] [place] [id number]. Soo Taylor MONO # 0.9 103/ul Critically high 0.3-0.8 [facility] Comment on above: Performed By: #### C BC ####[facility] [address] [place] [id number]. Ileneleah Taylor Monocytes/100 WBC (Bld) 6.4 % Normal 1.7-12.0 [facility] Comment on above: Performed By: #### C BC ####[facility] [address] [place] [address]Dr. Soo Taylor NEUT # 8.1 103/ul Critically high 1.4-6.5 [facility] Comment on above: Performed By: #### C BC ####[facility] [address] [place] [id number]. Soo Brandon Neutrophils/100 WBC (Bld) 55.5 % Normal 43.0-75.0 [facility] Comment on above: Performed By: #### C BC ####[facility] [address] [place] [id number]. Soo Brandon Platelet mean volume (Bld) [Entitic vol] 9.9 fL Normal 9.5-13.5 [facility] Comment on above: Performed By: #### C BC ####[facility] [address] [place] [id number]. Soo Taylor PLT 326 103/ul Normal 150-450 [facility] Comment on above: Performed By: #### C BC ####[facility] [address] [place] [id number]. Soo Taylor RBC 4.90 106/ul Normal 4.20-5.40 [facility] Comment on above: Performed By: #### C BC ####[facility] [address] [place] [id number]. Soo Taylor WBC 14.6 103/ul Critically high 4.0-11.0 [facility] Comment on above: Performed By: #### C BC ####[facility] [address] [place] [id number]. Soo Taylor PROF CHEM 8 (BAS METB)on Anion gap [Moles/Vol] 12.9 mmol/L Normal [facility] Comment on above: Performed By: #### B MP ####[facility] [address] [place] [id number]. Soo Taylor Calcium [Mass/Vol] 9.5 mg/dL Normal 8.5-10.1 [facility] Comment on above: Performed By: #### B MP ####[facility] [address] [place] [id number]. Soo Taylor Chloride [Moles/Vol] 101 mmol/L Normal 98-107 [facility] Comment on above: Performed By: #### B MP ####[facility] [address] [place] [id number]. Soo Taylor CO2 [Moles/Vol] 26.6 mmol/L Normal 21.0-32.0 [facility] Comment on above: Performed By: #### B MP ####[facility] [address] [place] [id number]. Soo Taylor Creatinine [Mass/Vol] 1.11 mg/dL Critically high 0.55-1.02 [facility] Comment on above: Performed By: #### B MP ####[facility] [address] [place] [id number]. Soo Taylor EGFR-AF MALDIVIAN >60 Normal >=60 [facility] Comment on above: Performed By: #### B MP ####[facility] [address] [place] [id number]. Soo Taylor EGFR-NON AF MALDIVIAN 52 mL/min/1.73m2 Critically low >=60 [facility] Comment on above: Performed By: #### B MP ####[facility] [address] [place] [id number]. Soo Taylor Glucose [Mass/Vol] 145 mg/dL Critically high 74-106 [facility] Comment on above: Performed By: #### B MP ####[facility] [address] [place] [id number]. Soo Taylor Potassium [Moles/Vol] 3.5 mmol/L Normal 3.5-5.1 [facility] Comment on above: Performed By: #### B MP ####[facility] [address] [place] [id number]. Soo Taylor Sodium [Moles/Vol] 137 mmol/L Normal 136-145 [facility] Comment on above: Performed By: #### B MP ####[facility] [address] [place] [id number]. Soo Taylor Urea nitrogen [Mass/Vol] 2.0 mg/dL Critically low 7.0-18.0 [facility] Comment on above: Performed By: #### B MP ####[facility] [address] [place], [place] [address]Be. Soo Taylor Urea nitrogen/Creatinin e [Mass ratio] 1.8 mg/mg Normal [facility] Comment on above: Performed By: #### B MP ####[facility] [address] [place], [place] [address]Zo. Soo Taylor TROPONIN, HIGH SENSITIVITYon 04-30-2022 HSTROP 5.1 pg/mL Normal 4.0-51.3 [facility] Comment on above: Result Comment: CUT- OFF POINTS HAVE BEEN ESTABLISHED BASED ON THE FOURTH UNIVERSAL DEFINITIONS OF MYOCARDIAL INFARCTION. THE UPPER REFERENCE LIMIT (URL) OF TROPONIN, DEFINED THE 99TH PERCENTILE OF cTnI DISTRIBUTION IN A REFERENCE POPULATION, HAS BEEN CONFIRMED THE DECISION THRESHOLD FOR CA DIAGNOSIS. Performed By: #### H STROPN ####[facility] [address] [place], [place] [address]Zl. Soo Taylor HSTROP 4.6 pg/mL Normal 4.0-51.3 [facility] Comment on above: Result Comment: CUT- OFF POINTS HAVE BEEN ESTABLISHED BASED ON THE FOURTH UNIVERSAL DEFINITIONS OF MYOCARDIAL INFARCTION. THE UPPER REFERENCE LIMIT (URL) OF TROPONIN, DEFINED THE 99TH PERCENTILE OF cTnI DISTRIBUTION IN A REFERENCE POPULATION, HAS BEEN CONFIRMED THE DECISION THRESHOLD FOR CA DIAGNOSIS. Performed By: #### H STROPN ####[facility] [address] [place], [place] [address]Lj. Soo Taylor MRI LSPINE WO CONon 04-06-20 MRI LSPINE WO CON EXAMINATION: MRI LSP INE WO CON HISTORY: Lumbar radiculopathy , chronic lumbar pain, weakness COMPARISON: 02/22/2021 TECHNIQUE: A variety of imaging planes and parameters were utilized for visualization of suspected pathology. FINDINGS: For the purposes of numbering, sagittal T2 image # 7 extends from the T12 vertebral body superiorly to the S4-S5 level inferiorly. PARASPINAL AREA: Normal with no visible mass. BONES: Normal alignment of the lumbar vertebral bodies with no acute fracture or spondylolisthesis. No bone edema. Mild degenerative spondylosis and facet osteoarthropathy. CORD/CAUDA EQUINA: Normal caliber, contour, and signal intensity. DISC LEVELS: 12-L1: No significant disc/facet abnormality, spinal stenosis, or foraminal stenosis. L1-L2: No significant disc/facet abnormality, spinal stenosis, or foraminal stenosis. L2-L3: Disc desiccation. Posterior central broad-based disc protrusion extending posteriorly up to 2.1 mm best seen on sagittal image 9. This abuts but does not efface right-sided nerves best seen on axial image 15. No foraminal stenosis L3-L4: Early degenerative disc disease is present without focal protrusion or neural impingement. L4-L5: Disc desiccation. Posterior broad-based disc protrusion extending up to 2 mm. No central or foraminal stenosis L5-S1: No significant disc/facet abnormality, spinal stenosis, or foraminal stenosis. IMPRESSION: Mild degenerative and discogenic changes. No significant central or foraminal stenosis Electronically authenticated by: MAMIE HERNANDEZ Date: 2022-04-06 18:18 Normal [facility] MRI KNEE RT WO CONon 022 MRI KNEE RT WO CON EXAMINATION: MRI KNE E RT WO CON HISTORY: Sprain of right knee COMPARISON: No relevant comparison available. TECHNIQUE: A complete multi-planar MRI was performed. FINDINGS: MEDIAL COMPARTMENT MEDIAL MENISCUS: No visible tear or significant degeneration. CARTILAGE: No visible defect. BONES: No marrow pathology, fracture, or significant arthropathy. MCL AND MEDIAL CAPSULE: Normal medial collateral ligament and medial capsule. LATERAL COMPARTMENT LATERAL MENISCUS: Horizontal tear posterior horn extending to the inferior articular surface best visualized on coronal image 17 and 18 CARTILAGE: No visible defect. BONES: No marrow pathology, fracture, or significant arthropathy. LCL/POSTEROLAT COMPLEX: Normal lateral collateral ligament, fascicles, lateral capsule and ligaments. ANTERIOR COMPARTMENT PATELLA: No marrow pathology, fracture, or significant arthropathy. CARTILAGE: No visible defect. TENDONS: Normal. EFFUSION: None. No synovitis or loose bodies. ACL: Normal appearing ligament. PCL: Normal appearing ligament. MENISCOFEMORAL: Normal meniscofemoral ligaments. OTHER: Negative. IMPRESSION: Horizontal tear posterior horn of the lateral meniscus extending to the inferior articular surface Electronically authenticated by: MAMIE HERNANDEZ Date: 2022-03-28 11:40 Normal [facility] MRI SHOULDER RT WO CONon MRI SHOULDER RT WO CON EXAMINATION: MRI SHOULDER RT WO CON HISTORY: Impingement syndrome of right shoulder region COMPARISON: No relevant comparison available. TECHNIQUE: A variety of imaging planes and parameters were utilized for visualization of suspected pathology. Imaging was performed without contrast. FINDINGS: ROTATOR CUFF REGION CUFF TENDONS: Moderately increased signal intensity in the supraspinatus and subscapularis tendons indicates tendon degeneration and/or tendinitis. No randall tear is seen. CUFF MUSCLES: Mild supraspinatus atrophy DELTOID: Normal. No significant atrophy or tear. LONG BICEPS TENDON: Normal. No abnormal signal, attrition, or tear. LABRUM/BICEPS ANCHOR SUPERIOR: Increased signal and fraying of the superior labrum without visible detachment from the glenoid rim. No visible detachment of the labrum or biceps tendon from the glenoid rim. Findings are most consistent with a Type I SLAP lesion. ANTERIOR/INFERIOR: Attenuation consistent with a patient of this age. POSTERIOR: Normal. No posterior labrum abnormality. CAPSULE Normal. No visible capsular laxity or thickening. AC JOINT REGION AC JOINT: Mild osteoarthropathy with no significant narrowing of the underlying coracoacromial arch. AC LIGAMENTS: Normal acromioclavicular ligament. CC LIGAMENTS: Normal coracoclavicular ligaments. ACROMION: Normal horizontal (Type I) configuration. SUBACROMIAL BURSA: Mild effusion. HYALINE CARTILAGE: Mild thinning OTHER BONES: Heterogeneous signal and contour deformity of the humeral head and neck with a minimal amount of bone edema. Findings are consistent with a subacute/chronic fracture OTHER OBSERVATIONS: Negative. No other significant findings or glenohumeral effusion. IMPRESSION: Moderate rotator cuff tendinitis with mild atrophy of the supraspinatus muscle Subacute/chronic humeral head/neck fracture Suspected superior and anterior labral tears No significant subacromial spurring to suggest impingement syndrome Electronically authenticated by: MAMIE HERNANDEZ Date: 2022-03-28 09:09 Normal [facility] ER URINE PROFILEon 2 Bilirubin Ql (U) Negative Normal NEGATIVE [facility] Comment on above: Performed By: #### E RUR #### [facility] [address] [place] [id number] [address] Soo Taylor Clarity (U) CLEAR Normal CLEAR [facility] Comment on above: Performed By: #### E RUR #### [facility] [address], [place] [address] Dr. Soo Taylor Color (U) LT. YELLOW Normal YELLOW [facility] Comment on above: Performed By: #### E RUR #### [facility] [address] [place] [address] [address] Soo RUFF A micrscopic examina tion will be performed if indicated. Normal [facility] Comment on above: Performed By: #### E RUR #### [facility] [address] [place] [address] [address] Soo Taylor Glucose Ql (U) Negative Normal NEGATIVE [facility] Comment on above: Performed By: #### E RUR #### [facility] [address] [address] [address] Soo Taylor Hemoglobin Ql (U) Negative Normal NEGATIVE [facility] Comment on above: Performed By: #### E RUR #### [facility] [address] [place] [address] Dr. Soo Taylor Ketones Ql (U) Negative Normal NEGATIVE [facility] Comment on above: Performed By: #### E RUR #### [facility] [address] [place] [address] Dr. Soo Taylor LEUKOCYTES Negative Normal NEGATIVE [facility] Comment on above: Performed By: #### E RUR #### [facility] [address] [address] [address] Soo Taylor Nitrite Ql (U) Negative Normal NEGATIVE [facility] Comment on above: Performed By: #### E RUR #### [facility] [address] [place] [address] Dr. Soo Taylor pH (U) 5.5 [pH] Normal 5-9 [facility] Comment on above: Performed By: #### E RUR #### [facility] [address] [place] [address] Dr. Soo Taylor SPEC GRAVITY <=1.005 Abnormal 1.005-<=1.025 [facility] Comment on above: Performed By: #### E RUR #### [facility] [address] [place] [address] Dr. Soo aTylor UA PROTEIN Negative Normal NEGATIVE/ TRACE [facility] Comment on above: Performed By: #### E RUR #### [facility] [address] [place] [address] [address] Soo Taylor UR MICRO IND NOT INDICATED Normal [facility] Comment on above: Performed By: #### E RUR #### [facility] [address], [place] [address] Dr. Soo Taylor Urobilinogen Qn (U) 0.2 {Gareth'U}/dL Normal 0.2 - 1.0 [facility] Comment on above: Performed By: #### E RUR #### [facility] [address] [place] [address] [address] Soo Taylor [facility] 02-22-2022 Albumin [Mass/Vol] 4.2 g/dL Normal 3.6-5.1 [facility] Comment on above: Performed By: #### 7 600, 65621, 496 #### [facility] [place] [address] [employer] Dryer Operator: Arjun Ramos MD Albumin/Globulin [Mass ratio] 1.8 {ratio} Normal 1.0-2.5 [facility] Comment on above: Performed By: #### 7 600, 45181, 496 #### [facility] [place] [address] [employer] Operator: Arjun Ramos MD ALP [Catalytic activity/Vol] 143 U/L Normal 37-153 [facility] Comment on above: Performed By: #### 7 600, 62017, 496 #### [facility] [place] [address] [employer]ary Dryer Operator: Arjun Ramos MD ALT [Catalytic activity/Vol] 18 U/L Normal 6-29 [facility] Comment on above: Performed By: #### 7 600, 17675, 496 #### [facility] [place] [address] [employer] Dryer Operator: Arjun Ramos MD AST [Catalytic activity/Vol] 14 U/L Normal 10-35 [facility] Comment on above: Performed By: #### 7 600, 67214, 496 #### [facility] [place] [address] [employer] Dryer Operator: Arjun Ramos MD Bilirubin [Mass/Vol] 0.5 mg/dL Normal 0.2-1.2 [facility] Comment on above: Performed By: #### 7 600, 51866, 496 #### [facility] [place] [address] [employer] Dryer Operator: Arjun Ramos MD Calcium [Mass/Vol] 10.0 mg/dL Normal 8.6-10.4 [facility] Comment on above: Performed By: #### 7 600, 04867, 496 #### [facility] [place] [address] [employer] Dryer Operator: Arjun Ramos MD Chloride [Moles/Vol] 100 mmol/L Normal 98-110 [facility] Comment on above: Performed By: #### 7 600, 88930, 496 #### [facility] [place] [address] [employer] Dryer Operator: Arjun Ramos MD CO2 [Moles/Vol] 29 mmol/L Normal 20-32 [facility] Comment on above: Performed By: #### 7 600, 77256, 496 #### [facility] [place] [address] [employer] Dryer Operator: Arjun Ramos MD Creatinine [Mass/Vol] 0.86 mg/dL Normal 0.50-1.05 [facility] Comment on above: Result Comment: For patients >49 years of age, the reference limit for Creatinine is approximately 13% higher for people identified as -[place]. Performed By: #### 7 600, 66406, 496 #### [facility] [place] [address] [employer] Dry[employer] Operator: Arjun Ramos MD eGFR NON-AFR. MALDIVIAN 78 mL/min/1.73m2 Normal > OR = 60 [facility] Comment on above: Performed By: #### 7 600, 20427, 496 #### [facility] [address], [address] [place] [address] [employer] Dryer Operator: Arjun Ramos MD GFR/1.73 sq M.predicted among blacks MDRD (S/P/Bld) [Vol rate/Area] 91 mL/min/{1.73_m2} Normal > OR = 60 [facility] Comment on above: Performed By: #### 7 600, 17263, 496 #### [facility] [address], [address] [place] [address] [employer] Dryer Operator: Arjun Ramos MD Globulin (S) [Mass/Vol] 2.4 g/dL Normal 1.9-3.7 [facility] Comment on above: Performed By: #### 7 600, 40736, 496 #### [facility] [address], [address] [place] [address] [employer] Dryer Operator: Arjun Ramos MD Glucose [Mass/Vol] 125 mg/dL Normal 65-139 [facility] Comment on above: Result Comment: Non-fasting reference interval For someone without known diabetes, a glucose value between 100 and 125 mg/dL is consistent with prediabetes and should be confirmed with a follow-up test. Performed By: #### 7 600, 68657, 496 #### [facility] [address], [address] [place] [address] [employer] Dry[employer] Operator: Arjun Ramos MD Potassium [Moles/Vol] 3.6 mmol/L Normal 3.5-5.3 [facility] Comment on above: Performed By: #### 7 600, 15406, 496 #### [facility] [place] [address] [employer] Dry[employer] Operator: Arjun Ramos MD Protein [Mass/Vol] 6.6 g/dL Normal 6.1-8.1 [facility] Comment on above: Performed By: #### 7 600, 48322, 496 #### [facility] [place] [address] [employer]ary Dryer Operator: Arjun Ramos MD Sodium [Moles/Vol] 139 mmol/L Normal 135-146 [facility] Comment on above: Performed By: #### 7 600, 21124, 496 #### [facility] [address], [address] [place] [address] [employer] Dryer Operator: Arjun Ramos MD Urea nitrogen [Mass/Vol] 4 mg/dL Low 7-25 [facility] Comment on above: Performed By: #### 7 600, 17414, 496 #### [facility] [address], [address] [place] [address] [employer] Dryer Operator: Arjun Ramos MD Urea nitrogen/Creatinin e [Mass ratio] 5 mg/mg Low 6-22 [facility] Comment on above: Performed By: #### 7 600, 18880, 496 #### [facility] [address], [address] [place] [address] Rotary Dryer Operator: Arjun Ramos MD HEMOGLOBIN A1con 02-22-2022 HEMOGLOBIN A1c 5.4 % of total Hgb Normal <5.7 [facility] Comment on above: Result Comment: For the purpose of screening for the presence of diabetes: <5.7% Consistent with the absence of diabetes 5.7-6.4% Consistent with increased risk for diabetes (prediabetes) > or =6.5% Consistent with diabetes This assay result is consistent with a decreased risk of diabetes. Currently, no consensus exists regarding use of hemoglobin A1c for diagnosis of diabetes in children. According to [place] Diabetes Association (ADA) guidelines, hemoglobin A1c <7.0% represents optimal control in non- diabetic patients. Different metrics may apply to specific patient populations. Standards of Medical Care in Diabetes(ADA). Performed By: #### 7 600, 90004, 496 #### [facility] [address], [address] [place] [address] [employer] Dry[employer] Operator: Arjun Ramos MD LIPID PANEL, STANDARDon Cholesterol [Mass/Vol] 187 mg/dL Normal <200 [facility] Comment on above: Order Comment: FASTI NG:NO FASTING: NO Performed By: #### 7 600, 87730, 496 #### [facility] [address], [address] [place] [address] Rotary Dryer Operator: Arjun Ramos MD Cholesterol in HDL [Mass/Vol] 43 mg/dL Low > OR = 50 [facility] Comment on above: Order Comment: FASTI NG:NO FASTING: NO Performed By: #### 7 600, 69330, 496 #### [facility] [address], [address] [place] [address] Rotary Dryer Operator: Arjun Ramos MD Cholesterol.total/ Cholesterol in HDL [Mass ratio] 4.3 {ratio} Normal <5.0 [facility] Comment on above: Order Comment: FASTI NG:NO FASTING: NO Performed By: #### 7 600, 21344, 496 #### [facility] [address], [address] [place] [address] [employer] Dryer Operator: Arjun Ramos MD LDL-CHOLESTEROL Normal [facility] Comment on above: Order Comment: FASTI NG:NO FASTING: NO Result Comment: LDL cholesterol not calculated. Triglyceride levels greater than 400 mg/dL invalidate calculated LDL results. Reference range: <100 Desirable range <100 mg/dL for primary prevention; <70 mg/dL for patients with CHD or diabetic patients with > or = 2 CHD risk factors. LDL-C is now calculated using the Lan-Palak calculation, which is a validated novel method providing better accuracy than the Friedewald equation in the estimation of LDL-C. Lan MARTÍNEZ et al. KELLY. 2013;310(19): 0039-6640 (http://education.Double Fusion.DocTree/faq/CZG034) Performed By: #### 7 600, 60986, 496 #### [facility] [address], [address] [place] [address] [employer]ary Dryer Operator: Arjun Ramos MD NON HDL CHOLESTEROL 144 mg/dL (calc) High <130 [facility] Comment on above: Order Comment: FASTI NG:NO FASTING: NO Result Comment: For patients with diabetes plus 1 major ASCVD risk factor, treating to a non-HDL-C goal of <100 mg/dL (LDL-C of <70 mg/dL) is considered a therapeutic option. Performed By: #### 7 600, 19676, 496 #### [facility] [address], [address] [place] [address] [employer]ary Dryer Operator: Arjun Ramos MD Triglyceride [Mass/Vol] 425 mg/dL High <150 [facility] Comment on above: Order Comment: FASTI NG:NO FASTING: NO Result Comment: If a non-fasting specimen was collected, consider repeat triglyceride testing on a fasting specimen if clinically indicated. Heber et al. J. of Clin. Lipidol. 2015;9:129-169. Performed By: #### 7 600, 07232, 496 #### [facility] [address], [address] [place] [address] Rotary Dryer Operator: Arjun Ramos MD HEMOGLOBIN A1con 11-14-2021 HEMOGLOBIN A1c 7.1 % of total Hgb High <5.7 [facility] Comment on above: Result Comment: For someone without known diabetes, a hemoglobin A1c value of 6.5% or greater indicates that they may have diabetes and this should be confirmed with a follow-up test. For someone with known diabetes, a value <7% indicates that their diabetes is well controlled and a value greater than or equal to 7% indicates suboptimal control. A1c targets should be individualized based on duration of diabetes, age, comorbid conditions, and other considerations. Currently, no consensus exists regarding use of hemoglobin A1c for diagnosis of diabetes for children. Performed By: #### 7 600, 496 #### [facility] [address], [address] [place] [address] Rotary Dryer Operator: Arjun Ramos MD LIPID PANEL, STANDARDon 10-18 Cholesterol [Mass/Vol] 184 mg/dL Normal <200 [facility] Comment on above: Order Comment: FASTI NG:YES FASTING: YES Performed By: #### 7 600, 496 #### [facility] [address], [address] [place] [address] Rotary Dryer Operator: Arjun Ramos MD Cholesterol in HDL [Mass/Vol] 32 mg/dL Low > OR = 50 [facility] Comment on above: Order Comment: FASTI NG:YES FASTING: YES Performed By: #### 7 600, 496 #### [facility] [address], [address] [place] [address] Rotary Dryer Operator: Arjun Ramos MD Cholesterol.total/ Cholesterol in HDL [Mass ratio] 5.8 {ratio} High <5.0 [facility] Comment on above: Order Comment: FASTI NG:YES FASTING: YES Performed By: #### 7 600, 496 #### [facility] [address], [address] [place] [address] Rotary Dryer Operator: Arjun Ramos MD LDL-CHOLESTEROL Normal [facility] Comment on above: Order Comment: FASTI NG:YES FASTING: YES Result Comment: LDL cholesterol not calculated. Triglyceride levels greater than 400 mg/dL invalidate calculated LDL results. Reference range: <100 Desirable range <100 mg/dL for primary prevention; <70 mg/dL for patients with CHD or diabetic patients with > or = 2 CHD risk factors. LDL-C is now calculated using the Tammy calculation, which is a validated novel method providing better accuracy than the Friedewald equation in the estimation of LDL-C. Lan MARTÍNEZ et al. KELLY. 2013;310(19): 4729-9778 (http://education.Double Fusion.DocTree/faq/QST849) Performed By: #### 7 600, 496 #### [facility] [address], [address] [place] [address] Rotary Dryer Operator: Arjun Ramos MD NON HDL CHOLESTEROL 152 mg/dL (calc) High <130 [facility] Comment on above: Order Comment: FASTI NG:YES FASTING: YES Result Comment: For patients with diabetes plus 1 major ASCVD risk factor, treating to a non-HDL-C goal of <100 mg/dL (LDL-C of <70 mg/dL) is considered a therapeutic option. Performed By: #### 7 600, 496 #### [facility] [address], [address] [place] [address] Rotary Dryer Operator: Arjun Ramos MD Triglyceride [Mass/Vol] 531 mg/dL High <150 [facility] Comment on above: Order Comment: FASTI NG:YES FASTING: YES Result Comment: If a non-fasting specimen was collected, consider repeat triglyceride testing on a fasting specimen if clinically indicated. Heber et al. J. of Clin. Lipidol. 2015;9:129-169. There is increased risk of pancreatitis when the triglyceride concentration is very high (> or = 500 mg/dL, especially if > or = 1000 mg/dL). Heber et al. J. of Clin. Lipidol. 2015;9:129-169. Performed By: #### 7 600, 496 #### [facility] [address] [facility], [address] [place] [address] Rotary Dryer Operator: Arjun Ramos MD CNOVashlee 06-27-2021 CNOV Office Visit (OTOLCC ) -------- KETURAH HERRERA ([id number]) 1970 F Date Time Provider Department 06/27/21 2:00 PM YE RODRIGUEZ [facility] During your visit today, we recorded the following information about you: Temperature Pulse 97.3 degrees 82/minute Ye Rodriguez PA-C 06/27/2021 4:56 PM Signed [facility] NOTE CC: Keturah Herrera is a 50 year old female who is self referred for facial swelling. ASSESSMENT: Xerostomia (primary encounter diagnosis) Enlarged parotid gland Tmj disorder PLAN: - Prescribed pilocarpine; instructed patient on appropriate use, side effects - Patient declines antibiotic due to side effects in the past; advised patient to continue monitoring for any changes in characteristics - Warm compress, gentle massage, analgesia as needed, soft diet advised, avoid clenching or grinding teeth, good oral hygiene, hydrating mouthwash as needed - Advised patient on red flag warning signs, symptoms that warrant immediate evaluation in ER - Follow up as clinically indicated Ye Rodriguez PA-C [facility] HPI: 50 year old female presents to clinic for evaluation of facial swelling. Patient reports intermittent facial swelling for 6+ months. Patient endorses tenderness, but denies worsening of symptoms, facial weakness. Patient alternates between heat and ice during swelling episodes with mild improvement of pain, tenderness. Patient was evaluated by ENT on 12/14/2020: Assesment / Plan: 1. Parotid gland enlargement - Ambulatory referral to ENT - dicloxacillin (DYNAPEN) 500 mg capsule; Take 1 capsule (500 mg total) by mouth 4 (four) times a day for 10 days. Dispense: 40 capsule; Refill: 0 - guaiFENesin (MUCINEX) 1,200 mg tablet extended release 12hr; Take 1 tablet by mouth 2 (two) times a day. Dispense: 30 each; Refill: 0 2. Xerostomia - pilocarpine (SALAGEN, PILOCARPINE,) 5 mg tablet; Take 1 tablet (5 mg total) by mouth 3 (three) times a day. Dispense: 90 tablet; Refill: 0 Follow-up at completion of treatment. Patient requested pain control. It was explained to patient that opiates are not indicated for treatment. Patient did not take antibiotic, Mucinex, or pilocarpine as prescribed. According to patient, ENT provider told her to lose weight and walked out of the exam room. Patient denies facial asymmetry, weakness, dysphagia, fever, chills. Past medical history: PAST MEDICAL HISTORY Diagnosis Date - ADHD (attention deficit hyperactivity disorder) - Anxiety - bipolar - COPD (chronic obstructive pulmonary disease) ([facility]) - Depression - Ana Laura-Danlos disease - Fibromyalgia - Gastritis - GERD (gastroesophageal reflux disease) - Hyperlipidaemia - Kidney stones - Migraine - MVP (mitral valve prolapse) all per patient list - OCD (obsessive compulsive disorder) - Osteoarthritis - Sleep apnea, obstructive suppose to use a bi-pap Past surgical history: PAST SURGICAL HISTORY Procedure Laterality Date - PAST SURGICAL HISTORY OF tubal ligation - PAST SURGICAL HISTORY OF 2006 hysterectomy - PAST SURGICAL HISTORY OF carpal tunnel x2 - PAST SURGICAL HISTORY OF ulnar nerve release x2 - PAST SURGICAL HISTORY OF sinus surgery x2 - PAST SURGICAL HISTORY OF mortons neuromas x6 - PAST SURGICAL HISTORY OF tarsal tunnel x2 - PAST SURGICAL HISTORY OF lithotripsy - PAST SURGICAL HISTORY OF appy - PAST SURGICAL HISTORY OF breast bilat. - PAST SURGICAL HISTORY OF bladder suspension Current medication(s): Current Outpatient Medications Medication Sig - pilocarpine (SALAGEN) 5 mg tablet Take 1 tablet by mouth three times daily. - cholecalciferol (VITAMIN D-3) 5,000 unit tab Take 5,000 Units by mouth once daily. - thiamine (VITAMIN B-1) 100 mg tablet Take 100 mg by mouth once daily. - calcium carbonate/vitamin D3 (CALCIUM 500 + D, D3, ORAL) Take by mouth one time a week. - hydrOXYzine HCl (ATARAX) 50 mg tablet Take 50 mg by mouth every 6 hours as needed. - meclizine (ANTIVERT) 25 mg tab Take 25 mg by mouth three times daily as needed. - ARIPiprazole (ABILIFY) 15 mg tablet Take 30 mg by mouth once daily. In AM - CLOMIPRAMINE HCL (ANAFRANIL ORAL) Take 150 mg by mouth daily at bedtime. (Patient not taking: Reported on 04/19/2021 ) - Omeprazole (PRILOSEC) 40 mg capsule Take 40 mg by mouth once daily. In AM - Cetirizine (ZYRTEC) 10 mg cap Take 10 mg by mouth once daily. In AM - simvastatin (ZOCOR) 40 mg tablet Take 40 mg by mouth daily at bedtime. - promethazine (PHENERGAN) 25 mg tablet Take 25 mg by mouth as needed. - montelukast (SINGULAIR) 10 mg tablet Take 10 mg by mouth daily at bedtime. - dicyclomine (BENTYL) 20 mg tablet Take 20 mg by mouth every 6 hours as needed. - pramipexole (MIRAPEX) 1.5 mg tablet Take 1.5 mg by mouth daily at bedtime. - Loperamide HCl (IMODIUM) 2 mg ta (more content not included)... Normal [facility] CNOVon 04-19-2021 CNOV Office Visit (LOORRM ) -------- KETURAH HERRERA ([id number]) 1970 F Date Time Provider Department 04/19/21 1:30 PM RANDI FARRELL During your visit today, we recorded the following information about you: Randi Farrell DO 04/19/2021 1:59 PM Sign when Signing Visit Earline is a new patient here today with complaints of right shoulder and elbow pain. She had a fall back at the end of February injuring her shoulder was told she had a fracture of her proximal humerus. She states his pain is improving but still quite significant and she is also complains of pain in her right elbow mainly on the radiocapitellar side. The remainder of her past medical and surgical histories are otherwise noted in the chart. Review of systems is negative unless otherwise noted. Exam alert pleasant female oriented x3. She has tenderness to palpation over her proximal humerus greater tuberosity and humeral head itself. There is no ecchymosis noted at this time. She does have good early range of motion of her shoulder with 30 to 40 degrees of abduction and flexion. Her right elbow is tender to palpation over her proximal radial neck. There is little to no swelling she can get through a full range of motion with the right elbow neurovascular is otherwise intact. X-rays of her shoulder proximal humerus reveal a nondisplaced greater tuberosity and humeral neck fracture. X-rays of the right elbow 3 views are negative for osseous abnormalities except for some mild arthritis. Impression: Nondisplaced fracture right greater tuberosity and humeral neck. Recommendations-I told her just continue using her right arm and shoulder. I explained her Codman exercises also gave her prescription for occupational therapy. She will follow-up in a month if necessary Referring Provider: SELF [200] Allergies As of Date: 04/19/2021 Noted Allergy Reaction CODEINE 02/28/2015 4 - Hives FISH DERIVED 02/28/2015 4 - Hives ATOMOXETINE HCL 02/28/2015 14 - Other: See Comments Comments: palpitations BUPROPION HCL 02/28/2015 14 - Other: See Comments Comments: palpitations DOXYCYCLINE 02/28/2015 14 - Other: See Comments Comments: palpitations TRILEPTAL (OXCARBAZEPINE) 02/28/2015 14 - Other: See Comments Comments: palpitations ZIPRASIDONE HCL 02/28/2015 14 - Other: See Comments Comments: palpitations ADHESIVE TAPE (ROSINS) 02/28/2015 2 - Rash Comments: rash AMITRIPTYLINE 02/28/2015 1 - Mental Status Change Comments: hallucinate AMOXICILLIN 02/28/2015 11 - Vomiting DEXAMETHASONE 02/28/2015 16 - Unknown FLUTICASONE PROPION-SALMETEROL 02/28/2015 16 - Unknown LYRICA (PREGABALIN) 02/28/2015 1 - Mental Status Change Comments: hallucinate METHADONE 02/28/2015 11 - Vomiting MOXIFLOXACIN-SOD.CHLORID E(ISO) 02/28/2015 16 - Unknown PENICILLINS 02/28/2015 11 - Vomiting TOPAMAX (TOPIRAMATE) 02/28/2015 16 - Unknown TORADOL (KETOROLAC) 02/28/2015 14 - Other: See Comments Comments: Abdominal pain VERAPAMIL 02/28/2015 11 - Vomiting Date Reviewed: 04/19/2021 Reviewed by: Randi aFrrell DO - Fully Assessed Reason for Visit: New [121110] Fracture [4131] Primary Visit Diagnosis:Other closed nondisplaced fracture of proximal end of left humerus, initial encounter [S42.295A] Other Visit Diagnosis:Right elbow pain [M25.521] Order(s):XR ELBOW SPECIAL VIEWS AP/LAT/OTHER RT [[id number]] Order #: [id number] FUTURE CONSULT TO WINCH OPERATOR [[id number]] Order #: [id number]: 1 FUTURE Prescriptions as of 04/19/2021 - cholecalciferol (VITAMIN D-3) 5,000 unit tab Take 5,000 Units by mouth once daily. - thiamine (VITAMIN B-1) 100 mg tablet Take 100 mg by mouth once daily. - calcium carbonate/vitamin D3 (CALCIUM 500 + D, D3, ORAL) Take by mouth one time a week. - hydrOXYzine HCl (ATARAX) 50 mg tablet Take 50 mg by mouth every 6 hours as needed. - meclizine (ANTIVERT) 25 mg tab Take 25 mg by mouth three times daily as needed. - ARIPiprazole (ABILIFY) 15 mg tablet Take 30 mg by mouth once daily. In AM - CLOMIPRAMINE HCL (ANAFRANIL ORAL) Take 150 mg by mouth daily at bedtime. - Omeprazole (PRILOSEC) 40 mg capsule Take 40 mg by mouth once daily. In AM - Cetirizine (ZYRTEC) 10 mg cap Take 10 mg by mouth once daily. In AM - simvastatin (ZOCOR) 40 mg tablet Take 40 mg by mouth daily at bedtime. - promethazine (PHENERGAN) 25 mg tablet Take 25 mg by mouth as needed. - montelukast (SINGULAIR) 10 mg tablet Take 10 mg by mouth daily at bedtime. - dicyclomine (BENTYL) 20 mg tablet Take 20 mg by mouth every 6 hours as needed. - pramipexole (MIRAPEX) 1.5 mg tablet Take 1.5 mg by mouth daily at bedtime. - Loperamide HCl (IMODIUM) 2 mg tab Take 2 mg by mouth twice daily as needed. Problem List As Of Date 04/19/2021 Noted Resolved Chronic, continuous use of opioids [F11.90] 02/28/2015 History of bipolar disorder [Z86.59] 02/28/2015 History of att (more content not included)... Normal [facility] XR ELBOW 3V AP/LAT/OTHER RTo n 04-19-2021 XR ELBOW 3V AP/LAT/OTHER RT * * *Final Report* * * DATE OF EXAM: Apr 19 2021 1:58PM LZX [id number] - XR ELBOW 3V AP/LAT/OTHER RT / PROCEDURE REASON: Right elbow pain * * * * Physician Interpretation * * * * HISTORY (as given from clinical provider): Right elbow pain . Additional history provided by the performing technologist (if any): INITIAL ENCOUNTER/ FELL IN FEBRUARY 2021 TECHNIQUE: XR ELBOW 3V AP/LAT/OTHER RT Laterality: RIGHT Views: 4 COMPARISON: None RESULT: Osteopenia. No evidence of fracture or joint effusion. Joint spaces are normal. No other significant abnormality. IMPRESSION: NO ACUTE OSSEOUS ABNORMALITY OTHER FINDINGS DESCRIBED Air Purifier Servicer: DIONNE Transcribe Date/Time: Apr 19 2021 2:38P Dictated by : CAROL ROCHE MD This examination was interpreted and the report reviewed and electronically signed by: CAROL ROCHE MD on Apr 19 2021 2:39PM EST [id number] Normal [facility] XR SHLDR >/=3V AP/IGNACIA AP/OTH R RTon 04-19-2021 XR SHLDR >/=3V AP/IGNACIA AP/OTHR RT * * *Final Report* * * DATE OF EXAM: Apr 19 2021 1:10PM [id number] [id number] - XR SHLDR >/=3V AP/IGNACIA AP/OTHR RT / PROCEDURE REASON: Pain * * * * Physician Interpretation * * * * HISTORY (as given from clinical provider): Pain . Additional history provided by the performing technologist (if any): INITIAL INCOUNTER/ FELL/ FX IN FEBRUARY 2021 TECHNIQUE: XR SHLDR >/=3V AP/IGNACIA AP/OTHR RT Laterality: RIGHT Views: 3 COMPARISON: None RESULT: Healing transverse nondisplaced fracture of the surgical neck of humerus probably also with a nondisplaced greater tuberosity fracture. Glenohumeral joint space and alignment are normal. Osteopenia. No other significant abnormality. IMPRESSION: HEALING FRACTURE Air Purifier Servicer: PSCDahiana Transcribe Date/Time: Apr 19 2021 2:02P Dictated by : CAROL ROCHE MD This examination was interpreted and the report reviewed and electronically signed by: CAROL ROCHE MD on Apr 19 2021 2:02PM EST [id number] Normal [facility] Vital Signs Date Time Vital Sign Value Performing Clinician Facility 09-17-2023 08:23-0500 Blood Pressure Location SHERI JIMENES [facility] 09-17-2023 08:23-0500 Diastolic blood pressure 52 mm[Hg] SHERI JIMENES [facility] 09-17-2023 08:23-0500 Heart rate 65 /min SHERI JIMENES [facility] 09-17-2023 08:23-0500 Respiratory rate 16 /min SHERI JIMENES [facility] 09-17-2023 08:23-0500 Systolic blood pressure 135 mm[Hg] SHERI JIMENES [facility] 08-27-2023 10:30-0500 Body height 165.1 cm Valarie Javier Other [facility] Other 08-27-2023 10:30-0500 Body mass index (BMI) [Ratio] 29.28 kg/m2 Valarie Javier Other [facility] Other 08-27-2023 10:30-0500 Body temperature 97.2 [degF] Valarie Javier Other [facility] Other 08-27-2023 10:30-0500 Body weight 79.83 kg Valarie Javier Other [facility] Other 08-27-2023 10:30-0500 Diastolic blood pressure 80 mm[Hg] Valarie Javier Other [facility] Other 08-27-2023 10:30-0500 Respiratory rate 20 /min Valarie Javier Other [facility] Other 08-27-2023 10:30-0500 SaO2% (BldA) [Mass fraction] 93 % Valarie Javier Other [facility] Other 08-27-2023 10:30-0500 Systolic blood pressure 132 mm[Hg] Valarie Javier Other [facility] Other 07-25-2023 10:39-0500 Blood Pressure Location Elliott SOLIS [facility] 07-25-2023 10:39-0500 Diastolic blood pressure 82 mm[Hg] Elliott SOLIS [facility] 07-25-2023 10:39-0500 Heart rate 76 /min Elliott SOLIS [facility] 07-25-2023 10:39-0500 SaO2% (BldA) [Mass fraction] 97 % Elliott SOLIS [facility] 07-25-2023 10:39-0500 Systolic blood pressure 138 mm[Hg] Elliott SOLIS [facility] 07-05-2023 15:44-0500 Blood Pressure Location Cady STANG [facility] 07-05-2023 15:44-0500 Diastolic blood pressure 83 mm[Hg] Cady STANG [facility] 07-05-2023 15:44-0500 Heart rate 70 /min Cady STANG [facility] 07-05-2023 15:44-0500 SaO2% (BldA) [Mass fraction] 99 % Cady STANG [facility] 07-05-2023 15:44-0500 Systolic blood pressure 138 mm[Hg] Cady STANG [facility] 05-20-2023 10:03-0400 Blood Pressure Location Cady STANG [facility] 05-20-2023 10:03-0400 Diastolic blood pressure 80 mm[Hg] Cady STANG [facility] 05-20-2023 10:03-0400 Heart rate 75 /min Cady STANG [facility] 10-02-2023 10:03-0400 SaO2% (BldA) [Mass fraction] 98 % Cady CALIX [facility] 05-20-2023 10:03-0400 Systolic blood pressure 130 mm[Hg] Cady CALIX [facility] 02-26-2023 08:30-0400 Body height 165.1 cm Valarie Javier Other [facility] Other 02-26-2023 08:30-0400 Body mass index (BMI) [Ratio] 28.25 kg/m2 Valarie Javier Other [facility] Other 02-26-2023 08:30-0400 Body temperature 96.9 [degF] Valarie Javier Other [facility] Other 02-26-2023 08:30-0400 Body weight 77.02 kg Valarie Javier Other [facility] Other 02-26-2023 08:30-0400 Diastolic blood pressure 84 mm[Hg] Valarie Javier Other [facility] Other 02-26-2023 08:30-0400 Respiratory rate 20 /min Valarie Javier Other [facility] Other 02-26-2023 08:30-0400 SaO2% (BldA) [Mass fraction] Valarie Javier Other [facility] Other 02-26-2023 08:30-0400 Systolic blood pressure 138 mm[Hg] Valarie Javier Other [facility] Other 01-17-2023 10:04-0400 Diastolic blood pressure 76 mm[Hg] Zulema CRAMER [facility] 01-17-2023 10:04-0400 Heart rate 70 /min Poole SALAM [facility] 01-17-2023 10:04-0400 Mean blood pressure 100 mm[Hg] Poole SALAM [facility] 01-17-2023 10:04-0400 Respiratory rate 17 /min Poole SALAM [facility] 01-17-2023 10:04-0400 SaO2% (BldA) [Mass fraction] 99 % Poole SALAM [facility] 01-17-2023 10:04-0400 Systolic blood pressure 149 mm[Hg] Poole SALAM [facility] 01-17-2023 09:55-0400 Diastolic blood pressure 80 mm[Hg] Poole SALAM [facility] 01-17-2023 09:55-0400 Heart rate 74 /min Poole SALAM [facility] 01-17-2023 09:55-0400 Mean blood pressure 97 mm[Hg] Poole SALAM [facility] 01-17-2023 09:55-0400 Respiratory rate 15 /min Poole SALAM [facility] 01-17-2023 09:55-0400 SaO2% (BldA) [Mass fraction] 99 % Poole SALAM [facility] 01-17-2023 09:55-0400 Systolic blood pressure 132 mm[Hg] Poole SALAM [facility] 01-17-2023 09:50-0400 Diastolic blood pressure 79 mm[Hg] Poole SALAM [facility] 01-17-2023 09:50-0400 Heart rate 73 /min Poole SALAM [facility] 01-17-2023 09:50-0400 Mean blood pressure 94 mm[Hg] Poole SALAM [facility] 01-17-2023 09:50-0400 Respiratory rate 13 /min Poole SALAM [facility] 01-17-2023 09:50-0400 SaO2% (BldA) [Mass fraction] 98 % Poole SALAM [facility] 01-17-2023 09:50-0400 Systolic blood pressure 125 mm[Hg] Poole SALAM [facility] 01-17-2023 09:39-0400 Body temperature 98.24 [degF] Poole SALAM [facility] 01-17-2023 08:35-0400 Blood Pressure Location Poole SALAM [facility] 01-17-2023 08:35-0400 Body temperature 98.06 [degF] Poole SALAM [facility] 11-21-2022 12:41-0400 Heart rate 61 /min Martin Arango [facility] 11-21-2022 12:41-0400 SaO2% (BldA) [Mass fraction] 97 % Martin Arango [facility] 11-21-2022 12:41-0400 Diastolic blood pressure 64 mm[Hg] Martin Arango [facility] 11-21-2022 12:41-0400 Mean blood pressure 85 mm[Hg] Martin Arango [facility] 11-21-2022 12:41-0400 Systolic blood pressure 128 mm[Hg] Martin Arango [facility] 11-21-2022 12:41-0400 Body temperature 96.98 [degF] Martin Arango [facility] 11-21-2022 12:40-0400 Respiratory rate 16 /min Martin Arango [facility] 11-21-2022 11:09-0400 Heart rate 66 /min Martin Arango [facility] 11-21-2022 11:09-0400 SaO2% (BldA) [Mass fraction] 100 % Martin Arango [facility] 11-21-2022 11:09-0400 Diastolic blood pressure 68 mm[Hg] Martin Arango [facility] 11-21-2022 11:09-0400 Mean blood pressure 84 mm[Hg] Martin Arango [facility] 11-21-2022 11:09-0400 Systolic blood pressure 116 mm[Hg] Martin Arango [facility] 11-21-2022 11:09-0400 Body temperature 98.06 [degF] Martin Arango [facility] 11-21-2022 11:08-0400 Respiratory rate 14 /min Martin Arango [facility] 11-21-2022 10:55-0400 Body temperature 97.16 [degF] Martin Arango [facility] 11-21-2022 10:55-0400 Diastolic blood pressure 85 mm[Hg] Martin Brown [facility] 11-21-2022 10:55-0400 Heart rate 65 /min Martin Arango [facility] 11-21-2022 10:55-0400 Mean blood pressure 98 mm[Hg] Martin Arango [facility] 11-21-2022 10:55-0400 Respiratory rate 18 /min Martin Arango [facility] 11-21-2022 10:55-0400 SaO2% (BldA) [Mass fraction] 98 % Martin Arango [facility] 11-21-2022 10:55-0400 Systolic blood pressure 123 mm[Hg] Martin Arango [facility] 11-21-2022 10:45-0400 Mean blood pressure 84 mm[Hg] Martin Arango [facility] 11-21-2022 10:45-0400 Respiratory rate 15 /min Martin Arango [facility] 11-21-2022 10:30-0400 Mean blood pressure 73 mm[Hg] Martin Arango [facility] 11-21-2022 10:30-0400 Respiratory rate 13 /min Martin Arango [facility] 11-21-2022 10:15-0400 Respiratory rate 1 /min Martin Arango [facility] 11-21-2022 07:43-0400 Mean blood pressure 100 mm[Hg] Martin Arango [facility] 11-21-2022 07:43-0400 Heart rate 62 /min Martin Arango [facility] 10-30-2022 15:25-0400 Blood Pressure Location Elliott Solis [facility] 10-30-2022 15:25-0400 Diastolic blood pressure 80 mm[Hg] Elliott Solis [facility] 10-30-2022 15:25-0400 Heart rate 70 /min Elliott Will [facility] 10-30-2022 15:25-0400 SaO2% (BldA) [Mass fraction] 95 % Elliott Will [facility] 10-30-2022 15:25-0400 Systolic blood pressure 126 mm[Hg] Elliott Solis [facility] 10-29-2022 14:56-0400 Diastolic blood pressure 86 mm[Hg] Inessa Nicci [facility] 10-29-2022 14:56-0400 Mean blood pressure 103 mm[Hg] Inessa Nicci [facility] 10-29-2022 14:56-0400 Systolic blood pressure 138 mm[Hg] Inessa Nicci [facility] 10-29-2022 14:50-0400 Blood Pressure Location Inessa Nicci [facility] 10-29-2022 14:50-0400 Body temperature 97.88 [degF] Inessa Nicci [facility] 10-29-2022 14:50-0400 Diastolic blood pressure 86 mm[Hg] Inessa Nicci [facility] 10-29-2022 14:50-0400 Heart rate 85 /min Inessa Nicci [facility] 10-29-2022 14:50-0400 Systolic blood pressure 141 mm[Hg] Inessa Nicci [facility] 10-20-2022 10:33-0500 Body temperature 95.9 [degF] Santos Frantz [facility] 10-20-2022 10:33-0500 Diastolic blood pressure 73 mm[Hg] Santos Landry [facility] 10-20-2022 10:33-0500 Heart rate 62 /min Santos Frantz [facility] 10-20-2022 10:33-0500 Respiratory rate 18 /min Santos Frantz [facility] 10-20-2022 10:33-0500 SaO2% (BldA) [Mass fraction] 100 % Santos Landry [facility] 10-20-2022 10:33-0500 Systolic blood pressure 151 mm[Hg] Santos Landry [facility] 10-12-2022 13:06-0500 Body temperature 97.7 [degF] Santos Frantz [facility] 10-12-2022 13:06-0500 Diastolic blood pressure 71 mm[Hg] Santos Landry [facility] 10-12-2022 13:06-0500 Heart rate 68 /min Santos Landry [facility] 10-12-2022 13:06-0500 Respiratory rate 18 /min Santos Frantz [facility] 10-12-2022 13:06-0500 SaO2% (BldA) [Mass fraction] 98 % Santos Landry [facility] 10-12-2022 13:06-0500 Systolic blood pressure 126 mm[Hg] Santos Landry [facility] 10-02-2022 12:31-0500 Blood Pressure Location Inessa Grajeda [facility] 10-02-2022 12:31-0500 Diastolic blood pressure 52 mm[Hg] Inessa Grajeda [facility] 10-02-2022 12:31-0500 Heart rate 56 /min Inessa Grajeda [facility] 10-02-2022 12:31-0500 SaO2% (BldA) [Mass fraction] 100 % Inessa Grajeda [facility] 10-02-2022 12:31-0500 Systolic blood pressure 136 mm[Hg] Inessa Grajeda [facility] 09-06-2022 10:09-0500 Blood Pressure Location Poole SALAM [facility] 09-06-2022 10:09-0500 Diastolic blood pressure 71 mm[Hg] Poole SALAM [facility] 09-06-2022 10:09-0500 Heart rate 70 /min Poole SALAM [facility] 09-06-2022 10:09-0500 Respiratory rate 22 /min Poole SALAM [facility] 09-06-2022 10:09-0500 Systolic blood pressure 145 mm[Hg] Poole SALAM [facility] 09-06-2022 10:05-0500 Blood Pressure Location Poole SALAM [facility] 09-06-2022 10:05-0500 Diastolic blood pressure 66 mm[Hg] Poole SALAM [facility] 09-06-2022 10:05-0500 Heart rate 66 /min Poole SALAM [facility] 09-06-2022 10:05-0500 Respiratory rate 20 /min Poole SALAM [facility] 09-06-2022 10:05-0500 SaO2% (BldA) [Mass fraction] 100 % Poole SALAM [facility] 09-06-2022 10:05-0500 Systolic blood pressure 94 mm[Hg] Poole SALAM [facility] 09-06-2022 10:00-0500 Heart rate 59 /min Poole SALAM [facility] 09-06-2022 10:00-0500 Respiratory rate 17 /min Poole SALAM [facility] 09-06-2022 10:00-0500 Systolic blood pressure 90 mm[Hg] Poole SALAM [facility] 09-06-2022 09:55-0500 SaO2% (BldA) [Mass fraction] 100 % Poole SALAM [facility] 09-06-2022 09:40-0500 Body temperature 96.62 [degF] Poole SALAM [facility] 09-06-2022 07:35-0500 Body temperature 96.62 [degF] Poole SALAM [facility] 07-05-2022 10:00-0500 Body height 165.1 cm Valarie Javier Other [facility] Other 07-05-2022 10:00-0500 Body mass index (BMI) [Ratio] 28.95 kg/m2 Valarie Javier Other [facility] Other 07-05-2022 10:00-0500 Body temperature 97 [degF] Valarie Javier Other [facility] Other 07-05-2022 10:00-0500 Body weight 78.93 kg Valarie Javier Other [facility] Other 07-05-2022 10:00-0500 Diastolic blood pressure 77 mm[Hg] Valarie Javier Other [facility] Other 07-05-2022 10:00-0500 Respiratory rate 20 /min Valarie Javier Other [facility] Other 07-05-2022 10:00-0500 SaO2% (BldA) [Mass fraction] Valarie Javier Other [facility] Other 07-05-2022 10:00-0500 Systolic blood pressure 137 mm[Hg] Valarie Javier Other [facility] Other 05-15-2022 13:22-0400 Diastolic blood pressure 65 mm[Hg] Cady STANG [facility] 05-15-2022 13:22-0400 Mean blood pressure 85 mm[Hg] Cady STANG [facility] 05-15-2022 13:22-0400 Systolic blood pressure 126 mm[Hg] Cady STANG [facility] 05-15-2022 13:08-0400 Blood Pressure Location Cady STANG [facility] 05-15-2022 13:08-0400 Diastolic blood pressure 88 mm[Hg] Cady STANG [facility] 05-15-2022 13:08-0400 Heart rate 62 /min Cady STANG [facility] 05-15-2022 13:08-0400 Respiratory rate 18 /min Cadyblaine KLEING [facility] 05-15-2022 13:08-0400 SaO2% (BldA) [Mass fraction] 100 % Cady ERNIEG [facility] 05-15-2022 13:08-0400 Systolic blood pressure 140 mm[Hg] Cady ERNIEG [facility] 03-20-2022 13:16-0400 Diastolic blood pressure 72 mm[Hg] Elliott Solis [facility] 03-20-2022 13:16-0400 Heart rate 73 /min Elliott Solis [facility] 03-20-2022 13:16-0400 Mean blood pressure 87 mm[Hg] Elliott Solis [facility] 03-20-2022 13:16-0400 Respiratory rate 18 /min Elliott Solis [facility] 03-20-2022 13:16-0400 Systolic blood pressure 118 mm[Hg] Elliott Solis [facility] 03-06-2022 10:27-0400 Blood Pressure Location Cadyblaine KLEING [facility] 03-06-2022 10:27-0400 Diastolic blood pressure 78 mm[Hg] Cadyblaine KLEING [facility] 03-06-2022 10:27-0400 Heart rate 68 /min Cady STANG [facility] 03-06-2022 10:27-0400 Respiratory rate 18 /min Cady STANG [facility] 03-06-2022 10:27-0400 SaO2% (BldA) [Mass fraction] 98 % Cady ERNIEG [facility] 03-06-2022 10:27-0400 Systolic blood pressure 137 mm[Hg] Cady CALIX [facility] 01-11-2022 15:06-0400 Diastolic blood pressure 83 mm[Hg] Poole SALAM [facility] 01-11-2022 15:06-0400 Heart rate 61 /min Poole SALAM [facility] 01-11-2022 15:06-0400 Systolic blood pressure 136 mm[Hg] Poole SALAM [facility] 12-11-2021 12:00-0400 Blood Pressure Location Donaldo PEARSON [facility] 12-11-2021 12:00-0400 Diastolic blood pressure 75 mm[Hg] Donaldo PEARSON [facility] 12-11-2021 12:00-0400 Heart rate 78 /min Donaldo PEARSON [facility] 12-11-2021 12:00-0400 Systolic blood pressure 107 mm[Hg] Donaldo PEARSON [facility] Encounters Encounter Date Encounter Type Care Provider Facility Start: 12-31-2023 ambulatory SHERI Wilder ty:FILIPE Jackson Start: 09-17-2023 End: 09-18-2023 ambulatory SHERI JIMENES Facility:[facility] Start: 09-17-2023 End: 09-17-2023 Patient encounter procedure SHERI JIMENES [facility] Start: 09-16-2023 End: 09-19-2023 ambulatory ROBERT GIRON [facility] Start: 09-08-2023 Refill Robert augustin DO Work Phone: [facility] Start: 09-02-2023 Orders Only Robert augustin DO Work Phone: [facility] Comment on above: Anxiety state Start: 08-28-2023 End: 08-28-2023 ambulatory NURIA PEACOCK Not Available Start: 08-27-2023 End: 08-27-2023 ambulatory Valarie Javier Other [facility] Other Start: 08-27-2023 Office outpatient vi sit 25 minutes Valarie Javier [facility] Start: 08-23-2023 Orders Only Robert augustin DO Work Phone: [facility] Comment on above: 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, sciatica laterality unspecified Start: 08-20-2023 End: 08-20-2023 ambulatory ANDRIA CARTER Not Available Start: 08-16-2023 Refill Robert augustin DO Work Phone: [facility] Comment on above: Oral thrush Start: 08-09-2023 End: 08-09-2023 ambulatory FRENCH LEVINE Not Available Start: 08-08-2023 End: 08-08-2023 ambulatory MARTIN ARANGO Not Available Start: 08-06-2023 End: 08-06-2023 ambulatory ИВАН HARMAN Not Available Start: 08-01-2023 End: 08-01-2023 ambulatory ИВАН HARMAN Not Available Start: 07-25-2023 End: 07-26-2023 ambulatory Elliott SOLIS Facility:[facility] Start: 07-25-2023 End: 07-25-2023 Patient encounter procedure Elliott SOLIS [facility] Start: 07-22-2023 End: 07-22-2023 ambulatory RITCHIE Coto MIRTA Not Available Start: 07-18-2023 End: 07-18-2023 ambulatory ИВАН HARMAN Not Available Start: 07-08-2023 End: 07-08-2023 ambulatory ROSHAN HOLLOWAY Not Available Start: 07-05-2023 End: 07-06-2023 ambulatory Cady L ERNIEG Facility:[facility] Start: 07-05-2023 End: 07-05-2023 Patient encounter procedure Cady L ERNIEG [facility] Start: 07-04-2023 End: 07-04-2023 ambulatory MARTIN ARANGO Not Available Start: 06-24-2023 End: 06-25-2023 ambulatory NURIA [facility] Start: 06-14-2023 End: 06-15-2023 ambulatory Cady L ERNIEG Facility:[facility] Start: 06-14-2023 End: 06-14-2023 Patient encounter procedure Cady L ERNIEG [facility] Start: 05-22-2023 End: 05-23-2023 ambulatory Inessa Grajeda Facility:[facility] Start: 05-22-2023 End: 05-22-2023 Patient encounter procedure Inessa Grajeda [facility] Start: 05-20-2023 End: 05-21-2023 ambulatory Cady L ERNIEG Facility:[facility] Start: 05-20-2023 End: 05-20-2023 Patient encounter procedure Cady L ERNIEG [facility] Start: 05-16-2023 End: 05-17-2023 ambulatory Elliott SOLIS Facility:[facility] Start: 04-04-2023 End: 04-04-2023 ambulatory Valarie Javier Other [facility] Other Start: 04-04-2023 Telephone encounter Valarie Javier [facility] Start: 04-03-2023 End: 04-03-2023 ambulatory Valarie Javier Facility:[facility] Start: 04-03-2023 End: 04-03-2023 ambulatory DO Robert Furlong Work Phone: [facility] Work Phone: Start: 04-03-2023 End: 04-03-2023 Patient encounter procedure DO Robert Furlong Work Phone: [facility] [address] Work Phone: Start: 02-26-2023 End: 02-26-2023 ambulatory Valarie Javier Other [facility] Other Start: 02-26-2023 Office outpatient vi sit 25 minutes Valarie Javier [facility] Start: 01-30-2023 End: 01-31-2023 ambulatory SHERI JIMENES Facility: [facility] Start: 01-29-2023 End: 01-30-2023 ambulatory Inessa Grajeda Facility:[facility] Start: 01-17-2023 End: 01-18-2023 ambulatory Zulema CRAMER Facility:[facility] Start: 01-17-2023 End: 01-17-2023 Patient encounter procedure Zulema CRAMER [facility] Start: 12-22-2022 End: 01-16-[address] DOCTOR GALLO Facility: Start: 12-21-2022 End: 12-22-[address] DOCTOR GALLO Facility:[facility] Start: 11-29-2022 End: 11-29-[address] ROBERT GIRON Facility: Start: 11-26-2022 End: 11-26-[address] ROBERT GIRON Facility: Start: 11-21-2022 End: 11-21-2022 ambulatory Martin Arango Facility:[facility] Start: 11-21-2022 End: 11-21-2022 Admission to same day surgery center Martin Arango [facility] Start: 11-16-2022 End: 11-17-2022 ambulatory Martin Arango Facility:[facility] Start: 11-13-2022 End: 11-14-2022 ambulatory Cady CALIX Facility:[facility] [facility] Start: 11-09-2022 End: 11-10-2022 ambulatory Inessa Grajeda Facility:[facility] Start: 10-30-2022 End: 10-31-2022 ambulatory Elliott SOLIS Facility:[facility] Start: 10-30-2022 End: 10-30-2022 Patient encounter procedure Elliott Solis [facility] Start: 10-29-2022 End: 10-30-2022 ambulatory Inessa Grajeda Facility:[facility] Start: 10-29-2022 End: 10-29-2022 Patient encounter procedure Inessa Grajeda [facility] Start: 10-20-2022 End: 10-20-2022 Emergency department patient visit Santos Landry Facility:[facility] Start: 10-20-2022 End: 10-20-2022 Emergency department patient visit Santos Landry [facility] Start: 10-19-2022 End: 10-20-2022 ambulatory Inessa Grajeda Facility:[facility] Start: 10-12-2022 End: 10-12-2022 Emergency department patient visit Santos Landry Facility:[facility] Start: 10-12-2022 End: 10-12-2022 Emergency department patient visit Santos Landry [facility] Start: 10-02-2022 End: 10-03-2022 ambulatory Inessa Grajeda Facility:[facility] Start: 10-02-2022 End: 10-02-2022 Patient encounter procedure Inessa Grajeda [facility] Start: 09-14-2022 End: 11-01-2022 Pre-admission assessment Zulema CRAMER [facility] Start: 09-10-2022 End: 09-11-[address] FREDERICK MAHARAJ . Facility:[facility] Start: 09-06-2022 End: 09-06-2022 Patient encounter procedure Zulema CRAMER [facility] Start: 09-04-2022 End: 09-04-2022 ambulatory Valarie Javier Other [employer] Other Start: 09-04-2022 Telephone encounter Valarie Javier [facility] Start: 08-10-2022 ambulatory ELIUD JAJA Facility :[facility] Start: 08-06-2022 End: 08-07-[address] FREDERICK MAHARAJ . Facility:[facility] Start: 07-05-2022 End: 07-05-2022 ambulatory Valarie Javier Other [employer] Other Start: 07-05-2022 Office outpatient vi sit 25 minutes Valarie Javier [facility] Start: 07-04-2022 End: 07-05-2022 ambulatory VALARIE JAVIER Facility:[facility] Start: 07-03-2022 End: 07-03-[address] RAULITO CHA . Facility:[facility] Start: 06-26-2022 End: 11-28-2022 Recurring Zulema CRAMER [facility] Start: 06-08-2022 End: 06-09-[address] DOCTOR GALLO Facility:[facility] Start: 05-15-2022 End: 05-15-2022 Patient encounter procedure Cady KLEINPamela [facility] Start: 05-09-2022 End: 09-09-2022 Recurring Zulema CRAMER [facility] Start: 05-09-2022 End: 06-19-2022 Pre-admission assessment Zulema CRAMER [facility] Start: 04-30-2022 End: 05-01-[address] ROBERT GIRON Facility:[facility] Start: 04-09-2022 End: 05-02-2022 Pre-admission assessment Donaldo PEARSON [facility] Start: 04-06-2022 End: 04-07-2022 ambulatory ELIUD JAJA Facility:[facility] Start: 04-01-2022 End: 04-01-2022 ambulatory JAMAR SRIVASTAVA . Facility:[facility] Start: 03-28-2022 End: 03-29-[address] DOCTOR GALLO Facility:[facility] Start: 03-20-2022 End: 03-20-2022 Patient encounter procedure Elliott Solis [facility] Start: 03-13-2022 End: 03-13-2022 ambulatory JAMAR SRIVASTAVA . Facility:[facility] Start: 03-06-2022 End: 09-07-2022 Pre-admission assessment Elliott Solis [facility] Start: 03-06-2022 End: 03-06-2022 Patient encounter procedure Cady CALIX [facility] Start: 02-08-2022 End: 06-20-2022 Recurring Zulema CRAMER [facility] Start: 02-08-2022 End: 02-09-2022 Pre-admission assessment Zulema CRAMER [facility] Start: 02-01-2022 End: 02-01-2022 Patient encounter procedure Zulema CRAMER [facility] Start: 01-11-2022 End: 05-02-2022 Recurring Zulema CRAMER [facility] Start: 01-11-2022 End: 01-11-2022 Patient encounter procedure Zulema CRAMER [facility] Start: 12-20-2021 End: 03-22-2022 Recurring Zulema CRAMER [facility] Start: 12-11-2021 End: 12-11-2021 Patient encounter procedure Donaldo PEARSON [facility] Start: 11-21-2021 End: 11-21-2021 Patient encounter procedure Inessa Grajeda [facility] Start: 10-12-2021 End: 01-30-2022 Recurring Martin Arango [facility] Procedures Date Procedure Procedure Detail Performing Clinician Start: 06-20-2023 Adult depression screening assessment Robert Giron [employer] Work Phone: Start: 04-03-2023 CT of lungs DO Robert Giron Work Phone: Start: 01-21-2023 Colonoscopy Robert Giron [employer] Work Phone: Start: 01-17-2023 Colonoscopy Zulema CRAMER Start: 11-21-2022 Hammer toe (disorder) Martin Arango Start: 11-21-2022 Metatarsal bone structure (body structure) Martindariana Arango Start: 10-22-2022 Microalbumin [Mass/volume] in Urine by Test strip Robert Giron [employer] Phone: Start: 09-10-2022 Mammography Robert Giron [employer] Work Phone: Start: 03-29-2022 Esophagogastroduodenoscopy Zulema CRAMER Comment on above: esophageal dilation, small gastric bezoa r Start: 11-08-2021 Peroneal tendon (body structure) Inessa [facility] Comment on above: right peroneal tendon repair with synove ctomy Start: 06-26-2021 Esophagogastroduodenoscopy Inessa clark Comment on above: dilation Start: 05-16-2021 Urodynamic studies Inessa Grajeda Start: 03-14-2020 Colonoscopy Inessa Grajeda Start: 03-03-2020 Catheterization of left heart Inessa koehler Comment on above: diagnostic Start: 10-22-2018 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 Inessa Grajeda Start: 06-22-2015 right instep plantar fasciotomy with division of muscle and fascia Inessa Grajeda Appendectomy Inessa Grajeda Arthroscopy of knee Inessa Bob Breast surgery (qualifier value) Inessa Grajeda Comment on above: x 2 - removal of milk ducts Cholecystectomy Inessa Downs tz Colonoscopy Inessa Grajeda Colonoscopy Poole SALAM Cystopexy Inessa Grajeda Decompression of median nerve Inessa Grajeda Comment on above: x 2 Decompression of ulnar nerve Inessa Grajeda Comment on above: x 2 Esophagogastroduodenoscopy B eth Nicci Esophagogastroduodenoscopy M [employer] SALAM Comment on above: Antral erosions Excision of ganglion cyst Be th Nicci Extracorporeal shock wave lithotripsy of calculus of kidney Inessadevyn Gatesz Hysterectomy Inessa Grajeda ingrown toenail removal 10 M aher SALAM Comment on above: x3 ingrown toenail removal 11 M issa CRAMER Comment on above: x3 ingrown toenail removal 9 Be th Nicci Comment on above: x3 Ligation of fallopian tube B dejah Grajeda Lithotripsy Inessa Grajeda Downey's metatarsalgia (disorder) Inessa Grajeda Comment on above: x 6 salpingectomy with u nilateral oophorectomy Inessa Grajeda Sinus (morphologic abnormality) Inessa Grajeda Comment on above: x 2 Structure of tarsal canal (body structure) Inessa Grajeda Comment on above: x 2 Ulnar nerve at elbow (body structure) Martin Harsh Plan of Treatment Date Care Activity Detail Author Start: 01-21-2033 Screening for malignant neoplasm of colon Colonoscopy [facility] Start: 08-05-2024 Adult BMI Screening Adult BMI Screening [facility] Start: 08-05-2024 Tobacco Screening Tobacco Screening [facility] Start: 07-10-2024 Adult BMI Follow Up Plan Adult BMI Follow Up Plan [facility] Start: 07-08-2024 Diabetic foot examination Diabetic Foot Exam [facility] Start: 06-20-2024 Depression Screening Depression Screening [facility] Start: 10-23-2023 Urine screening for protein Urine Microalbumin [facility] Start: 09-16-2023 End: 09-16-2023 ambulatory 09/16/2023 8:30 AM EST Infant Monitor [facility] Infant Monitor [address] [place] [address] [facility] Infant Monitor Start: 09-10-2023 Screening for malignant neoplasm of breast Mammogram [facility] Start: 2020 Administration of varicella zoster vaccine Zoster (Shingles) Vaccine (1 of 2) [facility] Start: 1989 DTaP,Tdap and Td Vaccines (1 - Tdap) DTaP,Tdap and Td Vaccines (1 - Tdap) [facility] Start: 1970 Glaucoma screening Diabetic Ophthalmology Exam [facility] Immunizations Immunization Date Immunization Notes Care Provider Zeinab yeung 06-24-2023 influenza virus vaccine, unspecified formulation SHERI JIMENES [facility] 04-15-2020 influenza virus vaccine, unspecified formulation Cadyblaine CALIX [facility] 06-02-2019 hepatitis A vaccine, adult dosage Cadyblaine CALIX [facility] 11-21-2018 hepatitis A vaccine, adult dosage Cadyblaine CALIX [facility] NEGATED: Highlighted row has not occurred!04-29-2023 influenza virus vaccine, unspecified formulation Cadyblaine CALIX [facility] NEGATED: Highlighted row has not occurred!10-29-2022 influenza virus vaccine, unspecified formulation Inessa Grajeda [facility] NEGATED: Highlighted row has not occurred!09-14-2022 influenza virus vaccine, unspecified formulation Inessa Grajeda [facility] NEGATED: Highlighted row has not occurred!05-09-2022 influenza virus vaccine, unspecified formulation Cady CALIX [facility] NEGATED: Highlighted row has not occurred!12-11-2021 influenza virus vaccine, unspecified formulation Donaldo PEARSON [facility] NEGATED: Highlighted row has not occurred!12-11-2021 SARS-CoV-2 (COVID-19) Ad26 vaccine, recombinant Donaldo PEARSON [facility] NEGATED: Highlighted row has not occurred!11-07-2021 influenza virus vaccine, unspecified formulation Inessa Grajeda [facility] NEGATED: Highlighted row has not occurred!09-04-2021 SARS-CoV-2 (COVID-19) Ad26 vaccine, recombinant Inessa Grajeda [facility] Payers Date Payer Category Payer Self-pay [id number] 2023 Medicaid [employer] HMO [id number] 2023-Present [phone] [address] [place] [address] [id number]. [id number] 1970 Unknown [id number] 2.16.840.1.128740.3.579.2. 593 1970 Unknown [id number] 2.16.840.1.332309.3.579.2. 593 1970 Unknown [id number] 2.16.840.1.467447.3.579.2. 593 1970 Unknown [id number] 2.16.840.1.514244.3.579.2. 593 1970 Unknown [id number] 2.16.840.1.338967.3.579.2. 593 1970 Unknown [id number] 2.16.840.1.937169.3.579.2. 593 1970 Unknown [id number] 2.16.840.1.544911.3.579.2. 593 1970 Unknown [id number] 2.16.840.1.048523.3.579.2. 593 1970 Unknown [id number] 2.16.840.1.959881.3.579.2. 593 1970 Unknown [id number] 2.16.840.1.773246.3.579.2. 593 1970 Unknown [id number] 2.16.840.1.147517.3.579.2. 593 1970 Unknown [id number] 2.16.840.1.218774.3.579.2. 593 1970 Unknown [id number] 2.16.840.1.579676.3.579.2. 593 1970 Unknown [id number] 2.16.840.1.682652.3.579.2. 593 1970 Unknown [id number] 2.16.840.1.500531.3.579.2. 593 1970 Unknown [id number] 2.16.840.1.395539.3.579.2. 176 1970 Unknown [id number] 2.16.840.1.276420.3.579.2. 1259 1970 Unknown [id number] 2.16.840.1.343225.3.579.2. 1259 1970 Unknown [id number] 2.16.840.1.871414.3.579.2. 1259 1970 Unknown [id number] 2.16.840.1.155010.3.579.2. 1259 1970 Unknown [id number] 2.16.840.1.173639.3.579.2. 1259 1970 Unknown [id number] 2.16.840.1.038415.3.579.2. 1259 1970 Unknown [id number] 2.16.840.1.354979.3.579.2. 1259 1970 Unknown [id number] 2.16.840.1.437555.3.579.2. 1259 1970 Unknown [id number] 2.16.840.1.546144.3.579.2. 1259 1970 Unknown [id number] 2.16.840.1.297834.3.579.2. 1259 1970 Unknown [id number] 2.16.840.1.792095.3.579.2. 1286 1970 Unknown [id number] 2.16.840.1.446722.3.579.2. 727 1970 Unknown [id number] 2.16.840.1.398319.3.579.2. 727 1970 Unknown [id number] 2.16.840.1.500664.3.579.2. 72 1970 Unknown [id number] 2.16.840.1.194615.3.579.2. 727 1970 Unknown [id number] 2.16.840.1.776013.3.579.2. 72 1970 Unknown [id number] 2.16.840.1.830869.3.579.2. 72 1970 Unknown [id number] 2.16.840.1.486754.3.579.2. 72 1970 Unknown [id number] 2.16.840.1.337054.3.579.2. 727 1970 Unknown [id number] 2.16.840.1.704391.3.579.2. 72 1970 Unknown [id number] 2.16.840.1.577540.3.579.2. 72 1970 Unknown [id number] 2.16.840.1.410708.3.579.2. 72 1970 Unknown [id number] 2.16.840.1.707988.3.579.2. 727 1970 Unknown [id number] 2.16.840.1.057744.3.579.2. 72 1970 Unknown [id number] 2.16.840.1.567497.3.579.2. 727 1970 Unknown [id number] 2.16.840.1.378778.3.579.2. 727 1970 Unknown [id number] 2.16.840.1.218826.3.579.2. 727 1970 Unknown [id number] 2.16.840.1.023718.3.579.2. 727 1970 Unknown [id number] 2.16.840.1.301382.3.579.2. 727 1970 Unknown [id number] 2.16.840.1.221685.3.579.2. 727 1970 Unknown [id number] 2.16.840.1.142317.3.579.2. 727 1970 Unknown [id number] 2.16.840.1.191406.3.579.2. 727 1959 Medicaid [id number] 1959 Private Health Insurance [id number] 1959 Unknown [id number] 1959 Unknown [id number] Unknown [id number] 2.16.840.1.823193.3.579.2. 531 Social History Date Type Detail Facility Start: 11-07-2021 End: 09-17-2023 Tobacco smoking status Heavy tobacco smoker (finding) [facility] Comment on above: 1 pack per day smoke r Start: 01-24-2023 End: 07-08-2023 Sex Assigned At Female [facility] Tobacco [facility] Comment on above: 1 ppd smokes 1 ppd. Tobacco smoking status Never [facility] Start: 1970 Sex Assigned At Female F [facility] Tobacco smoking status No Smokin g Status Entered [facility] Start: 01-04-2022 End: 04-15-2023 Tobacco smoking status NHIS Smoker (finding) [facility] Start: 07-08-2023 Tobacco smoking stat us KSIS Ex-smoker [facility] End: 04-15-2023 History of tobacco use Cigarette Smoker [facility] Start: 01-24-2023 End: 07-08-2023 Cigarettes smoked current (pack per day) - Reported 0.[address] [facility] Start: 07-08-2023 Tobacco use and exposure Smokeless tobacco non-user [facility] Start: 08-05-2023 Alcohol intake Ex-drinker (finding) [facility] Has the [employer]), [employer], or water [employer] threatened to shut off services in your home in past 12Mo No [facility] Are you now , , , , never or living with a partner? [facility] How often to you hav e a drink containing alcohol? Monthly or less [facility] How many standard drinks containing alcohol do you have on a typical day? [address] [facility] How often do you hav e 6 or more drinks on 1 occasion? Never [facility] How hard is it for y ou to pay for the very basics like food, housing, medical care, and heating Not very hard [facility] Do you feel stress - tense, restless, nervous, or anxious, or unable to sleep at night because your mind is troubled all the time - these days [OSQ] To some extent [facility] Start: 07-08-2023 Tobacco Comment Smoke 1 PPD x [address] [facility] Start: 1970 Sex Assigned At Not on file P [facility] Medical Equipment Procedure Code Equipment Code Equipment Origin al Text Equipment Identifier Dates Phacoemulsification of cataract with intraocular lens implantation Posterior-chamber intraocular lens, pseudophakic [id number] FDA Start: 12-14-2021 Phacoemulsification of cataract with intraocular lens implantation Posterior-chamber intraocular lens, pseudophakic ()[id number] FDA Start: 01-04-2022 HAMMERTOE REPAIR Brown DPM, Martin A 11/21/22 Non Biological Foot R FDA Start: 11-21-2022 HAMMERTOE REPAIR Brown DPM, Martin A 11/21/22 Non Biological Foot R FDA Start: 11-21-2022 HAMMERTOE REPAIR Brown DPM, Martin A 11/21/22 Non Biological Foot R FDA Start: 11-21-2022 HAMMERTOE REPAIR Brown DPM, Martin A 11/21/22 Non Biological Foot R FDA Start: 11-21-2022 HAMMERTOE REPAIR Brown DPM, Martin A 11/21/22 Non Biological Foot R FDA Start: 11-21-2022 HAMMERTOE REPAIR Brown DPM, Martin A 11/21/22 Non Biological Foot R FDA Start: 11-21-2022 HAMMERTOE REPAIR Brown DPM, Martin A 11/21/22 Non Biological Foot R FDA Start: 11-21-2022 HAMMERTOE REPAIR Brown DPM, Martin A 11/21/22 Non Biological Foot R FDA Start: 11-21-2022 HAMMERTOE REPAIR Brown DPM, Martin A 11/21/22 Non Biological Foot R FDA Start: 11-21-2022 HAMMERTOE REPAIR Brown DPM, Martin A 11/21/22 Non Biological Foot R FDA Start: 11-21-2022 HAMMERTOE REPAIR Brown DPM, Martin A 11/21/22 Non Biological Foot R FDA Start: 11-21-2022 HAMMERTOE REPAIR Brown DPM, Martin A 11/21/22 Non Biological Foot R FDA Start: 11-21-2022 HAMMERTOE REPAIR Brown DPM, Martin A 11/21/22 Non Biological Foot R FDA Start: 11-21-2022 HAMMERTOE REPAIR Brown DPM, Martin A 11/21/22 Non Biological Foot R FDA Start: 11-21-2022 HAMMERTOE REPAIR Brown DPM, Martin A 11/21/22 Non Biological Foot R FDA Start: 11-21-2022 HAMMERTOE REPAIR Brown DPM, Martin A 11/21/22 Non Biological Foot R FDA Start: 11-21-2022 HAMMERTOE REPAIR Brown DPM, Martin A 11/21/22 Non Biological Foot R FDA Start: 11-21-2022 JUAN ALBERTO Arango DPM, Martin Jerome 11/21/22 Non Biological Foot R FDA Start: 11-21-2022 Functional Status Date Assessment Result Facility 09-17-2023 Functional Status N/A [facility] 07-25-2023 Functional Status No [facility] 07-05-2023 Functional Status No [facility] 05-20-2023 Functional Status No [facility] 01-17-2023 Functional Status N/A [facility] 10-30-2022 Functional Status No [facility] 10-29-2022 Functional Status N/A [facility] 10-20-2022 Functional Status N/A [facility] 10-12-2022 Functional Status N/A [facility] 10-02-2022 Functional Status N/A [facility] 09-06-2022 Functional Status N/A [facility] 05-15-2022 Functional Status No [facility] 03-06-2022 Functional Status N/A [facility] Clinical Notes 04-19-2021 to 09-17-2023 Note Date & Type Note Facility 09-17-2023 Hospital Discharg e instructions Patient Education 09/17/2023 08:52:34 Hematuria, Adult Hematuria, Adult Hematuria is blood in the urine. Blood may be visible in the urine, or it may be identified with a test. This condition can be caused by infections of the bladder, urethra, kidney, or prostate. Other possible causes include: Kidney stones. Cancer of the urinary tract. Too much calcium in the urine. Conditions that are passed from parent to child (inherited conditions). Exercise that requires a lot of energy. Infections can usually be treated with medicine, and a kidney stone usually will pass through your urine. If neither of these is the cause of your hematuria, more tests may be needed to identify the cause of your symptoms. It is very important to tell your health care provider about any blood in your urine, even if it is painless or the blood stops without treatment. Blood in the urine, when it happens and then stops and then happens again, can be a symptom of a very serious condition, including cancer. There is no pain in the initial stages of many urinary cancers. Follow these instructions at home: Medicines Take sptn-chx-spmsjzu and prescription medicines only as told by your health care provider. If you were prescribed an antibiotic medicine, take it as told by your health care provider. Do not stop taking the antibiotic even if you start to feel better. Eating and drinking Drink enough fluid to keep your urine pale yellow. It is recommended that you drink 3 4 quarts (2.8 3.8 L) a day. If you have been diagnosed with an infection, drinking cranberry juice in addition to large amounts of water is recommended. Avoid caffeine, tea, and carbonated beverages. These tend to irritate the bladder. Avoid alcohol because it may irritate the prostate (in males). General instructions If you have been diagnosed with a kidney stone, follow your health care provider's instructions about straining your urine to catch the stone. Empty your bladder often. Avoid holding urine for long periods of time. If you are female: ?After a bowel movement, wipe from front to back and use each piece of toilet paper only once. ?Empty your bladder before and after sex. Pay attention to any changes in your symptoms. Tell your health care provider about any changes or any new symptoms. It is up to you to get the results of any tests. Ask your health care provider, or the department that is doing the test, when your results will be ready. Keep all follow-up visits. This is important. Contact a health care provider if: You develop back pain. You have a fever or chills. You have nausea or vomiting. Your symptoms do not improve after 3 days. Your symptoms get worse. Get help right away if: You develop severe vomiting and are unable to take medicine without vomiting. You develop severe pain in your back or abdomen even though you are taking medicine. You pass a large amount of blood in your urine. You pass blood clots in your urine. You feel very weak or like you might faint. You faint. Summary Hematuria is blood in the urine. It has many possible causes. It is very important that you tell your health care provider about any blood in your urine, even if it is painless or the blood stops without treatment. Take rict-hfs-yvnwujo and prescription medicines only as told by your health care provider. Drink enough fluid to keep your urine pale yellow. This information is not intended to replace advice given to you by your health care provider. Make sure you discuss any questions you have with your health care provider. Document Revised: 04/05/2021 Document Reviewed: 04/05/2021 [employer] Patient Education 2022 [employer]. Follow Up Care 06/13/2023 09:13:04 With:YUDY NORRIS, SHERI Kaminski, URL Address: [address] [place] [address] [phone] When: Unknown Comments:3 mos (restart med) [facility] Evaluation note Encounter Date Diagnosis Assessment Notes Aug, Chronic obstructive pulmonary disease, unspecified (ICD-10 - J44.9) Aug, Tobacco abuse (ICD-10 - Z72.0) Stop smoking. Chest CT in 03/2023 showed emphysema, no nodules. Next LDCT screening will be scheduled for 2023. Aug, Diastolic dysfunction (ICD-10 - I51.9) Aug, Nicotine dependence, cigarettes, uncomplicated (ICD-10 - F17.210) [employer] Other 12-07-2023 NotePROCEDURE: CARDIAC EVENT MONITOR 14 DAY REFERRING PHYSICIAN: LUISA Pryor INDICATION: Palpitations. PROCEDURE DETAILS: The patient was recorded from 06/14/2023 to 07/12/2023. The patient's predominant rhythm was sinus bradycardia or sinus rhythm. The minimum heart rate 56 beats per minute, average heart rate 88 beats per minute, maximal heart rate 125 beats per minute. The selected strips were sinus rhythm. There were episodes on 6 occasions of supraventricular tachycardia. These could last as long as 30 seconds usually running about 125 beats per minute. CONCLUSIONS: Event monitor showing supraventricular tachycardia at 125 beats per minute; each time there were 6 episodes. Clinical correlation suggested. READ BY: Josette Traore Dictated: 07/23/2023 [id number] Transcribed: 07/23/2023 cc:CAITLIN PryorAvita Health System Bucyrus HospitalComment on above:Result Comment: Electronically Signed By: Johnie WALSH, Yandel Mckinnon\.br\Date and Time Signed: 07/25/23 08:27 [id number] Evaluation note* Encounter Date Diagnosis Assessment Notes Treatment Notes Treatment Clinical Notes Feb, Chronic obstructive pulmonary disease, unspecified (ICD-10 - J44.9) If you are using your inhaler or nebulizer more than 4x a day, please notify me. Feb, Tobacco abuse (ICD-1 0 - Z72.0) Cut back on smoking to goal of stopping. Feb, Diastolic dysfunctio n (ICD-10 - I51.9) Feb, Nicotine dependence, cigarettes, uncomplicated (ICD-10 - F17.210) [facility] Other 06-05-2023 Note [id number]:127[facility] 01-17-2023 Hospital Discharge instructions Patient Education 01/17/2023 09:45:42 Colonoscopy, Care After Surgery Sal[place] (CUSTOM) Colonoscopy Care After Surgery Please read the instructions outlined below and refer to this sheet in the next few weeks. These discharge instructions provide you with general information on [facility] Your doctor may also give you specific instructions. While your treatment has been planned according to the most current medical practices available, unavoidable complications occasionally occur. If you have any problems or questions after discharge, please call your doctor. ACTIVITY You may resume your regular activity, but move at a slower pace for the next 24 hours. Take frequent rest periods for the next 24 hours. Walking will help get rid of the air and reduce the bloated feeling in your abdomen (belly). No driving for 24 hours (because of the anesthesia (medicine) used during the test). You may shower. Do not sign any important legal documents or operate any machinery for 24 hours (because of the anesthesia used during the test). NUTRITION Drink plenty of fluids. You may resume your normal diet as instructed by your doctor. Begin with a light meal and progress to your normal diet. Heavy or fried foods are harder to digestand may make you feel nauseated (sick to your stomach). Avoid alcoholic beverages for 24 hours or as instructed. MEDICATIONS You may resume your normal medications unless your doctor tells you otherwise. WHAT YOU CAN EXPECT TODAY Some feelings of bloating in the abdomen. Passage of more gas than usual. Spotting of blood in your stool or on the toilet paper. FOLLOW-UP Your doctor will discuss the results of your test with you. SEEK IMMEDIATE MEDICAL ATTENTION IF: There is more than a spotting of blood in your stool. There is abdominal distention (your abdomen is swollen). There is vomiting. You have a temperature over 101.5 F. There is abdominal pain or discomfort that is severe or gets worse throughout the day. 01/17/2023 09:45:38 Hemorrhoids, Nqyw-ab-Lqgk Hemorrhoids Hemorrhoids are swollen veins that may develop: In the butt (rectum). These are called internal hemorrhoids. Around the opening of the butt (anus). These are called external hemorrhoids. Hemorrhoids can cause pain, itching, or bleeding. Most of the time, they do not cause serious problems. They usually get better with diet changes, lifestyle changes, and other home treatments. What are the causes? This condition may be caused by: Having trouble pooping (constipation). Pushing hard (straining) to poop. Watery poop (diarrhea). . Being very overweight (obese). Sitting for long periods of time. Heavy lifting or other activity that causes you to strain. Anal sex. Riding a bike for a long period of time. What are the signs or symptoms? Symptoms of this condition include: Pain. Itching or soreness in the butt. Bleeding from the butt. Leaking poop. Swelling in the area. One or more lumps around the opening of your butt. How is this diagnosed? A doctor can often diagnose this condition by looking at the affected area. The doctor may also: Do an exam that involves feeling the area with a gloved hand (digital rectal exam). Examine the area inside your butt using a small tube (anoscope). Order blood tests. This may be done if you have lost a lot of blood. Have you get a test that involves looking inside the colon using a flexible tube with a camera on the end (sigmoidoscopy or colonoscopy). How is this treated? This condition can usually be treated at home. Your doctor may tell you to change what you eat, make lifestyle changes, or try home treatments. If these do not help, procedures can be done to remove the hemorrhoids or make them smaller. These may involve: Placing rubber bands at the base of the hemorrhoids to cut off their blood supply. Injecting medicine into the hemorrhoids to shrink them. Shining a type of light energy onto the hemorrhoids to cause them to fall off. Doing surgery to remove the hemorrhoids or cut off their blood supply. Follow these instructions at home: Eating and drinking Eat foods that have a lot of fiber in them. These include whole grains, beans, nuts, fruits, and vegetables. Ask your doctor about taking products that have added fiber (fibersupplements). Reduce the amount of fat in your diet. You can do this by: ?Eating low-fat dairy products. ?Eating less red meat. ?Avoiding processed foods. Drink enough fluid to keep your pee (urine) pale yellow. Managing pain and swelling Take a warm-water bath (sitz bath) for 20 minutes to ease pain. Do this 3 4 times a day. You may dothis in a bathtub or using a portable sitz bath that fits over the toilet. If told, put ice on the painful area. It may be helpful to use ice between your warm baths. ?Put ice in a plastic bag. ?Place a towel between your skin and the bag. ?Leave the ice on for 20 minutes, 2 3 times a day. General instructions Take nvcg-esh-yrqvano and prescription medicines only as told by your doctor. ?Medicated creams and medicines may be used as told. Exercise often. Ask your doctor how much and what kind of exercise is best for you. Go to the bathroom when you have the urge to poop. Do not wait. Avoid pushing too hard when you poop. Keep your butt dry and clean. Use wet toilet paper or moist towelettes after pooping. Do not sit on the toilet for a long time. Keep all follow-up visits as told by your doctor. This is important. Contact a doctor if you: Have pain and swelling that do not get better with treatment or medicine. Have trouble pooping. Cannot poop. Have pain or swelling outside the area of the hemorrhoids. Get help right away if you have: Bleeding that will not stop. Summary Hemorrhoids are swollen veins in the butt or around the opening of the butt. They can cause pain, itching, or bleeding. Eat foods that have a lot of fiber in them. These include whole grains, beans, nuts, fruits, and vegetables. Take a warm-water bath (sitz bath) for 20 minutes to ease pain. Do this 3 4 times a day. This information is not intended to replace advice given to you by your health care provider. Make sure you discuss any questions you have with your health care provider. Document Revised: 02/14/2022 Document Reviewed: 02/14/2022 [employer] Patient Education 2022 [employer]. 01/17/2023 09:45:31 Colon Polyps Colon Polyps Colon polyps are tissue growths inside the colon, which is part of the large intestine. They are one of the types of polyps that can grow in the body. A polyp may be a round bump or a mushroom-shapedgrowth. You could have one polyp or more than one. Most colon polyps are noncancerous (benign). However, some colon polyps can become cancerous over time. Finding and removing the polyps early can help prevent this. What are the causes? The exact cause of colon polyps is not known. What increases the risk? The following factors may make you more likely to develop this condition: Having a family history of colorectal cancer or colon polyps. Being older than 45 years of age. Being younger than 45 years of age and having a significant family history of colorectal cancer or colon polyps or a genetic condition that puts you at higher risk of getting colon polyps. Having inflammatory bowel disease, such as ulcerative colitis or Crohn's disease. Having certain conditions passed from parent to child (hereditary conditions), such as: ?Familial adenomatous polyposis (FAP). ?Ahumada syndrome. ?Turcot syndrome. ?Peutz Jeghers syndrome. ?MUTYH-associated polyposis (MAP). Being overweight. Certain lifestyle factors. These include smoking cigarettes, drinking too much alcohol, not gettingenough exercise, and eating a diet that is high in fat and red meat and low in fiber. Having had childhood cancer that was treated with radiation of the abdomen. What are the signs or symptoms? Many times, there are no symptoms. If you have symptoms, they may include: Blood coming from the rectum during a bowel movement. Blood in the stool (feces). The blood may be bright red or very dark in color. Pain in the abdomen. A change in bowel habits, such as constipation or diarrhea. How is this diagnosed? This condition is diagnosed with a colonoscopy. This is a procedure in which a lighted, flexible scope is inserted into the opening between the buttocks (anus) and then passed into the colon to examine the area. Polyps are sometimes found when a colonoscopy is done as part of routine cancer screening tests. How is this treated? This condition is treated by removing any polyps that are found. Most polyps can be removed during a colonoscopy. Those polyps will then be tested for cancer. Additional treatment may be needed depending on the results of testing. Follow these instructions at home: Eating and drinking Eat foods that are high in fiber, such as fruits, vegetables, and whole grains. Eat foods that are high in calcium and vitamin D, such as milk, cheese, yogurt, eggs, liver, fish, and broccoli. Limit foods that are high in fat, such as fried foods and desserts. Limit the amount of red meat, precooked or cured meat, or other processed meat that you eat, such as hot dogs, sausages, rangel, or meat loaves. Limit sugary drinks. Lifestyle Maintain a healthy weight, or lose weight if recommended by your health care provider. Exercise every day or as told by your health care provider. Do not use any products that contain nicotine or tobacco, such as cigarettes, e- cigarettes, and chewing tobacco. If you need help quitting, ask your health care provider. Do not drink alcohol if: ?Your health care provider tells you not to drink. ?You are , may be , or are planning to become . If you drink alcohol: ?Limit how much you use to: ?0 1 drink a day for women. ?0 2 drinks a day for men. ?Know how much alcohol is in your drink. In the [place] one drink equals one 12 oz bottle of beer (355 mL), one 5 oz glass of wine (148 mL), or one 1 oz glass of hard liquor (44 mL). General instructions Take izjf-qdc-pacmbmo and prescription medicines only as told by your health care provider. Keep all follow-up visits. This is important. This includes having regularly scheduled colonoscopies. Talk to your health care provider about when you need a colonoscopy. Contact a health care provider if: You have new or worsening bleeding during a bowel movement. You have new or increased blood in your stool. You have a change in bowel habits. You lose weight for no known reason. Summary Colon polyps are tissue growths inside the colon, which is part of the large intestine. They are one type of polyp that can grow in the body. Most colon polyps are noncancerous (benign), but some can become cancerous over time. This condition is diagnosed with a colonoscopy. This condition is treated by removing any polyps that are found. Most polyps can be removed during a colonoscopy. This information is not intended to replace advice given to you by your health care provider. Make sure you discuss any questions you have with your health care provider. Document Revised: 11/23/2020 Document Reviewed: 11/23/2020 [employer] Patient Education 2022 [employer]. Follow Up Care 09/14/2022 14:04:03 With:BELA WALSH, DHAVAL Poole, [facility] Address: [address] [place] [address]. [address] [place] [address] When: Unknown Comments:Office will call to schedule follow up appointment [facility]04-05-2023 Evaluation + Plan noteExtracted from: Title:Anesthesia Pre-Op Note - LILLY Author:Brody Raza DO Date:11/21/22 Plan [place] [employer]#(ASA) physical status classification: Class III. Anesthetic Preoperative Plan Anesthesia: General. . Anesthetic plan, risks, benefits, and alternatives discussed with the patient and/or family. Risks discussed: nausea, vomiting, headache, sore throat, aspiration, airway. Patient verbalized understanding. Informed consent was given. Consent was signed by the patient. Future Appointments Appointment Date:12/10/2022 02:40:00 PM Scheduled Provider:Inessa Grajeda CNP Location:[facility] Appointment Type:[facility] Follow Up Appointment Date:01/17/2023 09:50:00 AM Scheduled Provider: Location:[facility] Appointment Type:Surgery FT Appointment Date:01/30/2023 01:20:00 PM Scheduled Provider:SHERI JIMENES PA-C Location:[facility] Appointment Type:URO Office Visit Future Scheduled Tests Laboratory* Clostridium difficile by PCR 05/09/22 * CBC w/ Auto Diff 05/09/22 * Comprehensive Metabolic Panel 05/09/22 [facility]04-05-2023 Hospital Discharge instructions Patient Education 11/21/2022 11:26:16 Foot Cryocuff Patient Instructions - FT (CUSTOM) 11/21/2022 11:26:16 Post Op Patient Instructions - FT (CUSTOM) 11/21/2022 08:48:42 [place] - Post Operative Instructions (Revised 07/29/19) (Custom) ([id number]) (Custom) [place], [place] Martin Arango DPM, FACFAS POST OPERATIVE INSTRUCTIONS Keep bandage clean and dry and DO NOT REMOVE Keep foot elevated on white foam pillow Apply cryocuff to top of ankle, one hour on one hour off, until first office visit Non weight bearing on operative foot. Take pain medications as directed Do not be alarmed if you notice slight bleeding on the bandage, this is normal Resume regular diet. Call the office if you develop: persistent bleeding temperature above 100 degrees persistent vomiting calf pain or shortness of breath redness or pus at operative site Call the office tomorrow for 1st post-operative dressing change appointment. If you have any problems or questions, feel free to call the doctor at: [phone] or [phone] Arango paged. Patient signatureDate Dr.Nicholas Harsh DPM, FACFAS Date Revised: 09-26 [facility]04-04-2023 Note [id number]:127[facility] 11-20-2022 [id number]:127[facility]03-13-2023 Hospital Discharge instructions Patient Education 10/29/2022 14:43:33 Nausea, Adult Nausea, Adult Nausea is the feeling that you have an upset stomach or that you are about to vomit. Nausea on its own is not usually a serious concern, but it may be an early sign of a more serious medical problem.As nausea gets worse, it can lead to vomiting. If vomiting develops, or if you are not able to drink enough fluids, you are at risk of becoming dehydrated. Dehydration can make you tired and thirsty,cause you to have a dry mouth, and decrease how often you urinate. Older adults and people with other diseases or a weak disease-fighting system (immune system) are at higher risk for dehydration. The main goals of treating your nausea are: To relieve your nausea. To limit repeated nausea episodes. To prevent vomiting and dehydration. Follow these instructions at home: Watch your symptoms for any changes. Tell your health care provider about them. Follow these instructions as told by your health care provider. Eating and drinking Take an oral rehydration solution (ORS). This is a drink that is sold at pharmacies and retail stores. Drink clear fluids slowly and in small amounts as you are able. Clear fluids include water, ice chips, low-calorie sports drinks, and fruit juice that has water added (diluted fruit juice). Eat bland, ngks-hu-eyaile foods in small amounts as you are able. These foods include bananas, applesauce, rice, lean meats, toast, and crackers. Avoid drinking fluids that contain a lot of sugar or caffeine, such as energy drinks, sports drinks, and soda. Avoid alcohol. Avoid spicy or fatty foods. General instructions Take vdpb-snw-yihnmtc and prescription medicines only as told by your health care provider. Rest at home while you recover. Drink enough fluid to keep your urine pale yellow. Breathe slowly and deeply when you feel nauseous. Avoid smelling things that have strong odors. Wash your hands often using soap and water. If soap and water are not available, use hand charcoal burner beehive kiln. Make sure that all people in your household wash their hands well and often. Keep all follow-up visits as told by your health care provider. This is important. Contact a health care provider if: Your nausea gets worse. Your nausea does not go away after two days. You vomit. You cannot drink fluids without vomiting. You have any of the following: ?New symptoms. ?A fever. ?A headache. ?Muscle cramps. ?A rash. ?Pain while urinating. You feel light-headed or dizzy. Get help right away if: You have pain in your chest, neck, arm, or jaw. You feel extremely weak or you faint. You have vomit that is bright red or looks like coffee grounds. You have bloody or black stools or stools that look like tar. You have a severe headache, a stiff neck, or both. You have severe pain, cramping, or bloating in your abdomen. You have difficulty breathing or are breathing very quickly. Your heart is beating very quickly. Your skin feels cold and clammy. You feel confused. You have signs of dehydration, such as: ?Dark urine, very little urine, or no urine. ?Cracked lips. ?Dry mouth. ?Sunken eyes. ?Sleepiness. ?Weakness. These symptoms may represent a serious problem that is an emergency. Do not wait to see if the symptoms will go away. Get medical help right away. Call your local emergency services (911 in the [place] Do not drive yourself to the hospital. Summary Nausea is the feeling that you have an upset stomach or that you are about to vomit. Nausea on its own is not usually a serious concern, but it may be an early sign of a more serious medical problem. If vomiting develops, or if you are not able to drink enough fluids, you are at risk of becoming dehydrated. Follow recommendations for eating and drinking and take ljxi-pqh-uwfnhip and prescription medicinesonly as told by your health care provider. Contact a health care provider right away if your symptoms worsen or you have new symptoms. Keep all follow-up visits as told by your health care provider. This is important. This information is not intended to replace advice given to you by your health care provider. Make sure you discuss any questions you have with your health care provider. Document Released: 09/12/2005 Document Revised: 01/13/2019 Document Reviewed: 01/13/2019 [employer] Patient Education 2020 [employer]. Follow Up Care 10/02/2022 13:26:11 With:Inessa Grajeda CNP Address: When:1 to 2 weeks Comments:Following colonoscopy. [facility] 03-04-2023 Hospital Discharge instructions Patient Education 10/20/2022 12:23:03 Urinary Tract Infection, Adult Urinary Tract Infection, Adult A urinary tract infection (UTI) is an infection of any part of the urinary tract. The urinary tractincludes the kidneys, ureters, bladder, and urethra. These organs make, store, and get rid of urinein the body. Your health care provider may use other names to describe the infection. An upper UTI affects the ureters and kidneys (pyelonephritis). A lower UTI affects the bladder (cystitis) and urethra (urethritis). What are the causes? Most urinary tract infections are caused by bacteria in your genital area, around the entrance to your urinary tract (urethra). These bacteria grow and cause inflammation of your urinary tract. What increases the risk? You are more likely to develop this condition if: You have a urinary catheter that stays in place (indwelling). You are not able to control when you urinate or have a bowel movement (you have incontinence). You are female and you: ?Use a spermicide or diaphragm for control. ?Have low estrogen levels. ?Are . You have certain genes that increase your risk (genetics). You are sexually active. You take antibiotic medicines. You have a condition that causes your flow of urine to slow down, such as: ?An enlarged prostate, if you are male. ?Blockage in your urethra (stricture). ?A kidney stone. ?A nerve condition that affects your bladder control (neurogenic bladder). ?Not getting enough to drink, or not urinating often. You have certain medical conditions, such as: ?Diabetes. ?A weak disease-fighting system (immunesystem). ?Sickle cell disease. ?Gout. ?Spinal cord injury. What are the signs or symptoms? Symptoms of this condition include: Needing to urinate right away (urgently). Frequent urination or passing small amounts of urine frequently. Pain or burning with urination. Blood in the urine. Urine that smells bad or unusual. Trouble urinating. Cloudy urine. Vaginal discharge, if you are female. Pain in the abdomen or the lower back. You may also have: Vomiting or a decreased appetite. Confusion. Irritability or tiredness. A fever. Diarrhea. The first symptom in older adults may be confusion. In some cases, they may not have any symptoms until the infection has worsened. How is this diagnosed? This condition is diagnosed based on your medical history and a physical exam. You may also have other tests, including: Urine tests. Blood tests. Tests for sexually transmitted infections (STIs). If you have had more than one UTI, a cystoscopy or imaging studies may be done to determine the cause of the infections. How is this treated? Treatment for this condition includes: Antibiotic medicine. Hazt-xyz-gqjpeya medicines to treat discomfort. Drinking enough water to stay hydrated. If you have frequent infections or have other conditions such as a kidney stone, you may need to see a health care provider who specializes in the urinary tract (urologist). In rare cases, urinary tract infections can cause sepsis. Sepsis is a life- threatening condition that occurs when the body responds to an infection. Sepsis is treated in the hospital with IV antibiotics, fluids, and other medicines. Follow these instructions at home: Medicines Take zonc-rdp-igmhkwy and prescription medicines only as told by your health care provider. If you were prescribed an antibiotic medicine, take it as told by your health care provider. Do notstop using the antibiotic even if you start to feel better. General instructions Make sure you: ?Empty your bladder often and completely. Do not hold urine for long periods of time. ?Empty your bladder after sex. ?Wipe from front to back after a bowel movement if you are female. Use each tissue one time when you wipe. Drink enough fluid to keep your urine pale yellow. Keep all follow-up visits as told by your health care provider. This is important. Contact a health care provider if: Your symptoms do not get better after 1 2 days. Your symptoms go away and then return. Get help right away if you have: Severe pain in your back or your lower abdomen. A fever. Nausea or vomiting. Summary A urinary tract infection (UTI) is an infection of any part of the urinary tract, which includes the kidneys, ureters, bladder, and urethra. Most urinary tract infections are caused by bacteria in your genital area, around the entrance to your urinary tract (urethra). Treatment for this condition often includes antibiotic medicines. If you were prescribed an antibiotic medicine, take it as told by your health care provider. Do notstop using the antibiotic even if you start to feel better. Keep all follow-up visits as told by your health care provider. This is important. This information is not intended to replace advice given to you by your health care provider. Make sure you discuss any questions you have with your health care provider. Document Released: 05/15/2006 Document Revised: 07/23/2019 Document Reviewed: 02/12/2019 [employer] Patient Education 2020 [employer]. 10/20/2022 12:23:03 Antibiotic Medicine, Adult Antibiotic Medicine, Adult Antibiotic medicines are used to treat infections caused by bacteria, such as strep throat and urinary tract infection (UTI). Antibiotic medicines will not work for viral illnesses, such as colds or the flu (influenza). They work by killing the bacteria that is making you sick. Antibiotics can alsohave serious side effects. It is important that you take antibiotic medicines safely and only when needed. When do I need to take antibiotics? Antibiotics are medicines that treat bacterial infections. You may need antibiotics for: UTI. Strep throat. Meningitis. This infection affects the spinal cord and brain. Bacterial sinusitis. Serious lung infection. You may start antibiotics while your health care provider waits for test results to come back. Common tests may include throat, urine, blood, or mucus culture. Your health care provider may change orstop the antibiotic depending on your test results. When are antibiotics not needed? You do not need antibiotics for most common illnesses. These illnesses may be caused by a virus, not a bacteria. You do not need antibiotics for: The common cold. Influenza. Sore throat. Discolored mucus. Bronchitis. Antibiotics are not always needed for all bacterial infections. Many of these infections clear up without antibiotic treatment. Do not ask for or take antibiotics when they are not necessary. How long should I take the antibiotic? You must take the entire prescription. Continue to take your antibiotic for as long as told by yourhealth care provider. Do not stop taking it even if you start to feel better. If you stop taking ittoo soon: You may start to feel sick again. Your infection may become harder to treat. Complications may develop. Each course of antibiotics needs a different amount of time to work. Some antibiotic courses last only a few days. Some last about a week to 10 days. In some cases, you may need to take antibiotics for a few weeks to completely treat the infection. What if I miss a dose? Try not to miss any doses of medicine. If you miss a dose, call your health care provider or pharmacist for advice. Sometimes it is okay to take the missed dose as soon as possible. What are the risks of taking antibiotics? Most antibiotics can cause an infection called Clostridioides difficile (C. difficile or C. diff), which causes severe diarrhea. This infection happens when the antibiotics kill the healthy bacteria in your intestines. This allows C. diff to grow. The infection needs to be treated right away. Let your health care provider know if: You have diarrhea while taking an antibiotic. You have diarrhea after you stop taking an antibiotic. C. diff infection can start weeks after stopping the antibiotic. Taking an antibiotic also puts you at risk for getting a bacteria that does not respond to medicine(antibiotic-resistant infection) in the future. Antibiotics can cause bacteria to change so that ifthe antibiotic is taken again, the medicine is not able to kill the bacteria. These infections can be more serious and, in some cases, life-threatening. Do antibiotics affect control? control pills may not work while you are on antibiotics. If you are taking control pills, continue taking them as usual and use a second form of control, such as a condom, to avoid unwanted . Continue using the second form of control until your health care provider says you can stop. What else should I know about taking antibiotics? It is important for you to take antibiotics exactly as told. Make sure that you: Take the entire course of antibiotic that was prescribed. Do not stop taking your antibiotics even if your symptoms improve. Take the correct amount of medicine each day. Ask your health care provider: ?How long to wait in between doses. ?If the antibiotic should be taken with food. ?If there are any foods, drinks, or medicines that you should avoid while taking the antibiotics. ?If there are any side effects you should be aware of. Only use the antibiotics prescribed for you by your health care provider. Do not use antibiotics prescribed for someone else. Drink a large glass of water along with the antibiotics. Ask the pharmacist for a syringe, cup, or spoon that properly measures the antibiotics. Throw away any leftover medicine. Contact a health care provider if: Your symptoms get worse. You have new joint pain or muscle aches that begin after starting the antibiotic. When should I seek immediate medical care? You have signs of a serious allergic reaction to antibiotics. If you have signs of a severe allergic reaction, stop taking the antibiotic right away. Signs may include: ?Hives, which are raised, itchy, red bumps on the skin. ?Skin rash. ?Trouble breathing. ?A wheezing sound when you breathe. ?Swelling anywhere on your body. ?Feeling dizzy. ?Vomiting. Your urine turns dark or becomes blood-colored. Your skin turns yellow. You bruise or bleed easily. You have severe diarrhea and abdominal cramps. You have a severe headache. Summary Antibiotic medicines are used to treat infections caused by bacteria, such as strep throat and UTIs. It is important that you take antibiotic medicines only when needed. Your health care provider may change or stop the antibiotic depending on your test results. Most antibiotics can cause an infection called Clostridioides difficile (C. difficile or C. diff), which causes severe diarrhea. Let your health care provider know if you develop diarrhea while taking an antibiotic. Take the entire course of antibiotic that was prescribed. This information is not intended to replace advice given to you by your health care provider. Make sure you discuss any questions you have with your health care provider. Document Released: 04/17/2005 Document Revised: 02/03/2019 Document Reviewed: 08/06/2017 [employer] Patient Education [facility] Follow Up Care 10/20/2022 10:33:51 With:ROBERT GIRON Address: [address] [place] [id number] [facility] (1) When:10/23/2022 12:22:53 Comments:Call the office of your primary care doctor to arrange for follow-up within the above-stated timeframe. Follow-up with your primary care doctor about this ED visit. You should review your labs, imaging, and diagnoses from this ED visit with your primary care physician. If you were prescribed medications you should discuss possible side-effects and drug interactions with your pharmacist. Call 911 or go to the nearest Emergency Department if you develop any new or worsening symptoms. [facility]03-04-2023 Evaluation + Plan noteExtracted from: Title:ED Note Author:Santos Landry DO Date: Acute UTI (N39.0: Urinary tr act infection, site not specified) Orders: azithromycin, = 1 packet(s), Oral, As Directed, as directed on package labeling, X 5 day(s), # 6 tab(s), Refills(s) 0, Pharmacy: [id number], 163, cm, 10/20/22 10:48:00 EST, Height/Length Dosing, 78.9, kg, 10/20/22 10:48:00 EST, Weight Dosing Automated Diff Basic Metabolic Panel CBC w/ Auto Diff CT Abdomen/Pelvis w/o Contrast eGFR Extra Blue Tube UA With Cult Reflex Urine Culture Addendum by Santos Landry DO on October 20, 2022 12:35:16 EST She requested pain medicine before discharge. Allergies again reviewed. Can only take Tylenol and narcotics. Narcotics not indicated. Tylenol given. Future Appointments Appointment Date:10/23/2022 09:00:00 AM Scheduled Provider: Location:.[facility] Appointment Type:US Abdominal/Pelvis (FT) Appointment Date:10/29/2022 02:40:00 PM Scheduled Provider:Inessa Grajeda CNP Location:[facility] Appointment Type:BADH Follow Up Appointment Date:10/30/2022 03:00:00 PM Scheduled Provider:Elliott Solis MD [facility] Type:Cardiology Follow Up (FT) Appointment Date:11/07/2022 02:40:00 PM Scheduled Provider: Location:[facility] Appointment Type:Surgery FT Appointment Date:01/30/2023 01:20:00 PM Scheduled Provider:SHERI JIMENES PA-C Location:[facility] Appointment Type:URO Office Visit Diagnostic Tests Pending * Urine Culture 10/20/22 Future Scheduled Tests Laboratory* Clostridium difficile by PCR 05/09/22 * CBC w/ Auto Diff 05/09/22 * Comprehensive Metabolic Panel 05/09/22 Radiology* US Abdomen Complete 10/23/22 [facility]02-24-2023 Hospital Discharge instructions Patient Education 10/12/2022 14:38:59 What You Need to Know About Chronic Back Pain What You Need to Know About Chronic Back Pain Long-term (chronic) back pain is back pain that lasts for 12 weeks or longer. It often affects the lower back and can range from mild to severe. Many people have back pain at some point in their lives. It can feel different to each person. It may feel like a muscle ache or a sharp, stabbing pain. The pain often gets worse over time. It can be difficult to find the cause of chronic back pain. Treating chronic back pain often starts with rest and pain relief, followed by exercises (physical therapy) to strengthen the muscles that support your back. You may have to try different things to see what works best for you. If other treatments do not help, or if your pain is caused by a condition or an injury, you may need surgery. How can back pain affect me? Chronic back pain is uncomfortable and can make it hard to do your usual daily activities. Chronic back pain can: Cause numbness and tingling. Come and go. Get worse when you are sitting, standing, walking, bending, or lifting. Affect you while you are active, at rest, or both. Eventually make it hard to move around. Occur with fever, weight loss, or difficulty urinating. What are the benefits of treating back pain? Treating chronic back pain may: Relieve pain. Keep your pain from getting worse. Make it easier for you to do your usual activities. What are some steps I can take to decrease my back pain? Take pqzm-oup-vfzcuif or prescription medicines only as told by your health care provider. If directed, apply heat to the affected area. Use the heat source that your health care provider recommends, such as a moist heat pack or a heating pad. ?Place a towel between your skin and the heat source. ?Leave the heat on for 20 30 minutes. ?Remove the heat if your skin turns bright red. This is especially important if you are unable to feel pain, heat, or cold. You may have a greater risk of getting burned. If directed, put ice on the affected area: ?Put ice in a plastic bag. ?Place a towel between your skin and the bag. ?Leave the ice on for 20 minutes, 2 3 times a day. Get regular exercise as told by your health care provider to improve flexibility and strength. Do not smoke. Maintain a healthy weight. When lifting objects: ?Keep your feet as far apart as your shoulders (shoulder-width apart) or farther apart. ?Tighten the muscles in your abdomen. ?Bend your knees and hips and keep your spine neutral. It is important to lift using the strength of your legs, not your back. Do not lock your knees straight out. ?Always ask for help to lift heavy or awkward objects. What can happen if my back pain goes untreated? Untreated back pain can: Get worse over time. Start to occur more often or at different times, such as when you are resting. Cause posture problems. Make it hard to move around (limit mobility). Where can I get support? Chronic back pain can be a frustrating condition to manage. It may help to talk with other people who are having a similar experience. Consider joining a support group for people dealing with chronicback pain. Ask your health care provider about support groups in your area. You can also find online and in- person support groups through: The [place] [employer]: https://theacpa.org/Support-Groups The [place]. Pain Foundation: uspainfoundation.org/support-groups Contact a health care provider if: Your symptoms do not get better or they get worse. You have severe back pain. You have chronic back pain and a fever. You lose weight without trying. You have difficulty urinating. You experience numbness or tingling. You develop new pain after an injury. Summary Chronic back pain is often treated with rest, pain relief, and physical therapy. Get regular exercise to improve your strength and flexibility. Put heat and ice on the affected areas as directed by your health care provider. Chronic back pain can be challenging to live with. Joining a support group may help you manage yourcondition. This information is not intended to replace advice given to you by your health care provider. Make sure you discuss any questions you have with your health care provider. Document Released: 08/19/2016 Document Revised: 07/18/2018 Document Reviewed: 04/13/2017 [employer] Patient Education 2020 [employer]. Follow Up Care 10/12/2022 12:55:29 With:ROBERT GIRON Address: [address] [place], [place] [address] [address] Business (1) When:10/15/2022 14:38:47 Comments:Call the office of your primary care doctor to arrange for follow-up within the above-stated timeframe. Follow-up with your primary care doctor about this ED visit. You should review your labs, imaging, and diagnoses from this ED visit with your primary care physician. If you were prescribed medications you should discuss possible side-effects and drug interactions with your pharmacist. Call 911 or go to the nearest Emergency Department if you develop any new or worsening symptoms. [facility]02-24-2023 Evaluation + Plan noteExtracted from: Title:ED Note Author:Isaías Rutledge PA-C e:10/12/22 Chronic pain (G89.29: Other chronic pain) Orders: lidocaine topical, 1 patch(es), Patch, TransDermal, Once, Stop date 10/12/22 14:37:00 EST, STAT, Start date 10/12/22 14:37:00 EST lidocaine topical, 1 patch(es), Topical, Daily, 7 EA, Refill(s) 0, apply 12 hours on and 12 hours off daily metaxalone, 800 mg = 1 tab(s), Tab, Oral, Once, Stop date 10/12/22 14:37:00 EST, STAT, Start date 10/12/22 14:37:00 EST, 10/12/22 14:37:00 EST tizanidine, 4 mg = 1 cap(s), Oral, TID, X 5 day(s), # 15 cap(s), Refills(s) 0 Future Appointments Appointment Date:10/23/2022 09:00:00 AM Scheduled Provider: [facility] Appointment Type:US Abdominal/Pelvis (FT) Appointment Date:10/29/2022 02:40:00 PM Scheduled Provider:Inessa Grajeda CNP Location:[facility] Appointment Type:BADH Follow Up Appointment Date:10/30/2022 03:00:00 PM Scheduled Provider:Elliott Solis MD [facility] Type:Cardiology Follow Up (FT) Appointment Date:11/07/2022 02:40:00 PM Scheduled Provider: Location:[facility] Appointment Type:Surgery FT Appointment Date:01/30/2023 01:20:00 PM Scheduled Provider:SHERI JIMENES PA-C Location:[facility] Appointment Type:URO Office Visit Future Scheduled Tests Laboratory* Fecal WBC Lactoferrin 05/09/22 * Giardia lamblia, Direct Detection EIA 05/09/22 * O & P Exam, Routine 05/09/22 * Clostridium difficile by PCR 05/09/22 * Enteric Panel by PCR 05/09/22 * CBC w/ Auto Diff 05/09/22 * Comprehensive Metabolic Panel 05/09/22 Radiology* US Abdomen Complete 10/23/22 [facility]02-14-2023 Hospital Discharge instructions Patient Education 10/02/2022 13:01:04 Nausea and Vomiting, Adult Nausea and Vomiting, Adult Nausea is the feeling that you have an upset stomach or that you are about to vomit. Vomiting is when stomach contents are thrown up and out of the mouth as a result of nausea. Vomiting can make you feel weak and cause you to become dehydrated. Dehydration can make you feel tired and thirsty, cause you to have a dry mouth, and decrease how often you urinate. Older adults and people with other diseases or a weak disease-fighting system (immune system) are at higher risk for dehydration. It is important to treat your nausea and vomiting as told by your health care provider. Follow these instructions at home: Watch your symptoms for any changes. Tell your health care provider about them. Follow these instructions to care for yourself at home. Eating and drinking Take an oral rehydration solution (ORS). This is a drink that is sold at pharmacies and retail stores. Drink clear fluids slowly and in small amounts as you are able. Clear fluids include water, ice chips, low-calorie sports drinks, and fruit juice that has water added (diluted fruit juice). Eat bland, qulv-xb-nxgdjl foods in small amounts as you are able. These foods include bananas, applesauce, rice, lean meats, toast, and crackers. Avoid fluids that contain a lot of sugar or caffeine, such as energy drinks, sports drinks, and soda. Avoid alcohol. Avoid spicy or fatty foods. General instructions Take ablv-jsx-dtngxgy and prescription medicines only as told by your health care provider. Drink enough fluid to keep your urine pale yellow. Wash your hands often using soap and water. If soap and water are not available, use hand charcoal burner beehive kil[employer]. Make sure that all people in your household wash their hands well and often. Rest at home while you recover. Watch your condition for any changes. Breathe slowly and deeply when you feel nauseated. Keep all follow-up visits as told by your health care provider. This is important. Contact a health care provider if: Your symptoms get worse. You have new symptoms. You have a fever. You cannot drink fluids without vomiting. Your nausea does not go away after 2 days. You feel light-headed or dizzy. You have a headache. You have muscle cramps. You have a rash. You have pain while urinating. Get help right away if: You have pain in your chest, neck, arm, or jaw. You feel extremely weak or you faint. You have persistent vomiting. You have vomit that is bright red or looks like black coffee grounds. You have bloody or black stools or stools that look like tar. You have a severe headache, a stiff neck, or both. You have severe pain, cramping, or bloating in your abdomen. You have difficulty breathing, or you are breathing very quickly. Your heart is beating very quickly. Your skin feels cold and clammy. You feel confused. You have signs of dehydration, such as: ?Dark urine, very little urine, or no urine. ?Cracked lips. ?Dry mouth. ?Sunken eyes. ?Sleepiness. ?Weakness. These symptoms may represent a serious problem that is an emergency. Do not wait to see if the symptoms will go away. Get medical help right away. Call your local emergency services (911 in the [place] Do not drive yourself to the hospital. Summary Nausea is the feeling that you have an upset stomach or that you are about to vomit. As nausea getsworse, it can lead to vomiting. Vomiting can make you feel weak and cause you to become dehydrated. Follow instructions from your health care provider about eating and drinking to prevent dehydration. Take nllg-tuh-lbdgioh and prescription medicines only as told by your health care provider. Contact your health care provider if your symptoms get worse, or you have new symptoms. Keep all follow-up visits as told by your health care provider. This is important. This information is not intended to replace advice given to you by your health care provider. Make sure you discuss any questions you have with your health care provider. Document Released: 08/05/2006 Document Revised: 11/27/2019 Document Reviewed: 01/13/2019 [employer] Patient Education 2020 [employer]. Follow Up Care 09/21/2022 11:43:03 With:Inessa Grajeda CNP Address: When:1 month [facility] 01-19-2023 Evaluation + Plan noteExtracted from: Title:ANES Post-operative Note Author:Johny Oseguera MD Date:09/06/22 Plan Transfer/Discharge: Transfer/Discharge Discharge when meets criteria ( To home ). Extracted from: Title:ANES Pre-operative Note Author:Lillie Oseguera MD Date:09/06/22 Plan [place] [employer]esthes[employer] (ASA) physical status classification: Class III. Anesthetic Preoperative Plan: Anesthesia General, and Monitored anethesia care. Future Appointments Appointment Date:10/30/2022 03:00:00 PM Scheduled Provider:Elliott Solis MD [facility] Type:Cardiology Follow Up (FT) Appointment Date:01/30/2023 01:20:00 PM Scheduled Provider:SHERI JIMENES PA-C Location:[facility] Appointment Type:URO Office Visit Future Scheduled Tests Laboratory* Fecal WBC Lactoferrin 05/09/22 * Giardia lamblia, Direct Detection EIA 05/09/22 * O & P Exam, Routine 05/09/22 * Clostridium difficile by PCR 05/09/22 * Enteric Panel by PCR 05/09/22 * CBC w/ Auto Diff 05/09/22 * Comprehensive Metabolic Panel 05/09/22 [facility]01-19-2023 Hospital Discharge instructions Patient Education 09/06/2022 09:52:38 Colonoscopy, Care After Surgery Salam (CUSTOM) Colonoscopy Care After Surgery Please read the instructions outlined below and refer to this sheet in the next few weeks. These discharge instructions provide you with general information on [facility] Your doctor may also give you specific instructions. While your treatment has been planned according to the most current medical practices available, unavoidable complications occasionally occur. If you have any problems or questions after discharge, please call your doctor. ACTIVITY You may resume your regular activity, but move at a slower pace for the next 24 hours. Take frequent rest periods for the next 24 hours. Walking will help get rid of the air and reduce the bloated feeling in your abdomen (belly). No driving for 24 hours (because of the anesthesia (medicine) used during the test). You may shower. Do not sign any important legal documents or operate any machinery for 24 hours (because of the anesthesia used during the test). NUTRITION Drink plenty of fluids. You may resume your normal diet as instructed by your doctor. Begin with a light meal and progress to your normal diet. Heavy or fried foods are harder to digestand may make you feel nauseated (sick to your stomach). Avoid alcoholic beverages for 24 hours or as instructed. MEDICATIONS You may resume your normal medications unless your doctor tells you otherwise. WHAT YOU CAN EXPECT TODAY Some feelings of bloating in the abdomen. Passage of more gas than usual. Spotting of blood in your stool or on the toilet paper. FOLLOW-UP Your doctor will discuss the results of your test with you. SEEK IMMEDIATE MEDICAL ATTENTION IF: There is more than a spotting of blood in your stool. There is abdominal distention (your abdomen is swollen). There is vomiting. You have a temperature over 101.5 F. There is abdominal pain or discomfort that is severe or gets worse throughout the day. 09/06/2022 09:52:38 Upper Endoscopy, Adult, Care After Upper Endoscopy, Adult, Care After This sheet gives you information about how to care for yourself after your procedure. Your health care provider may also give you more specific instructions. If you have problems or questions, contact your health care provider. What can I expect after the procedure? After the procedure, it is common to have: A sore throat. Mild stomach pain or discomfort. Bloating. Nausea. Follow these instructions at home: Follow instructions from your health care provider about what to eat or drink after your procedure. Return to your normal activities as told by your health care provider. Ask your health care provider what activities are safe for you. Take sgcy-wpw-lpgkrbu and prescription medicines only as told by your health care provider. Do not drive for 24 hours if you were given a sedative during your procedure. Keep all follow-up visits as told by your health care provider. This is important. Contact a health care provider if you have: A sore throat that lasts longer than one day. Trouble swallowing. Get help right away if: You vomit blood or your vomit looks like coffee grounds. You have: ?A fever. ?Bloody, black, or tarry stools. ?A severe sore throat or you cannot swallow. ?Difficulty breathing. ?Severe pain in your chest or abdomen. Summary After the procedure, it is common to have a sore throat, mild stomach discomfort, bloating, and nausea. Do not drive for 24 hours if you were given a sedative during the procedure. Follow instructions from your health care provider about what to eat or drink after your procedure. Return to your normal activities as told by your health care provider. This information is not intended to replace advice given to you by your health care provider. Make sure you discuss any questions you have with your health care provider. Document Released: 02/03/2013 Document Revised: 01/27/2019 Document Reviewed: 01/05/2019 [employer] Patient Education 2020 [employer] Follow Up Care 06/26/2022 12:25:13 With:Zulema CRAMER Address: [facility] [address] [place] [address] Business (1) When: Unknown Comments:Office to call for follow-up appointment [facility]11-17-2022 Evaluation note* Encounter Date Diagnosis Assessment Notes Treatment Notes Treatment Clinical Notes Jun, Chronic obstructive pulmonary disease, unspecified (ICD-10 - J44.9) Jun, Tobacco abuse (ICD-10 - Z72.0) Cut back on smoking to goal of stopping, Jun, Diastolic dysfunction (ICD-10 - I51.9) [facility] Other 04-25-2022 Hospital Discharge instructions Patient Education 12/11/2021 12:33:07 Overactive Bladder, Adult Overactive Bladder, Adult Overactive bladder refers to a condition in which a person has a sudden need to pass urine. The person may leak urine if he or she cannot get to the bathroom fast enough (urinary incontinence). A person with this condition may also wake up several times in the night to go to the bathroom. Overactive bladder is associated with poor nerve signals between your bladder and your brain. Your bladder may get the signal to empty before it is full. You may also have very sensitive muscles thatmake your bladder squeeze too soon. These symptoms might interfere with daily work or social activities. What are the causes? This condition may be associated with or caused by: Urinary tract infection. Infection of nearby tissues, such as the prostate. Prostate enlargement. Surgery on the uterus or urethra. Bladder stones, inflammation, or tumors. Drinking too much caffeine or alcohol. Certain medicines, especially medicines that get rid of extra fluid in the body (diuretics). Muscle or nerve weakness, especially from: ?A spinal cord injury. ?Stroke. ?Multiple sclerosis. ?Parkinson's disease. Diabetes. Constipation. What increases the risk? You may be at greater risk for overactive bladder if you: Are an older adult. Smoke. Are going through menopause. Have prostate problems. Have a neurological disease, such as stroke, dementia, Parkinson's disease, or multiple sclerosis (MS). Eat or drink things that irritate the bladder. These include alcohol, spicy food, and caffeine. Are overweight or obese. What are the signs or symptoms? Symptoms of this condition include: Sudden, strong urge to urinate. Leaking urine. Urinating 8 or more times a day. Waking up to urinate 2 or more times a night. How is this diagnosed? Your health care provider may suspect overactive bladder based on your symptoms. He or she will diagnose this condition by: A physical exam and medical history. Blood or urine tests. You might need bladder or urine tests to help determine what is causing your overactive bladder. You might also need to see a health care provider who specializes in urinary tract problems (urologist). How is this treated? Treatment for overactive bladder depends on the cause of your condition and whether it is mild or severe. You can also make lifestyle changes at home. Options include: Bladder training. This may include: ?Learning to control the urge to urinate by following a schedule that directs you to urinate at regular intervals (timed voiding). ?Doing Kegel exercises to strengthen your pelvic floor muscles, which support your bladder. Toning these muscles can help you control urination, even if your bladder muscles are overactive. Special devices. This may include: ?Biofeedback, which uses sensors to help you become aware of your body's signals. ?Electrical stimulation, which uses electrodes placed inside the body (implanted) or outside the body. These electrodes send gentle pulses of electricity to strengthen the nerves or muscles that control the bladder. ?Women may use a plastic device that fits into the vagina and supports the bladder (pessary). Medicines. ?Antibiotics to treat bladder infection. ?Antispasmodics to stop the bladder from releasing urine at the wrong time. ?Tricyclic antidepressants to relax bladder muscles. ?Injections of botulinum toxin type A directly into the bladder tissue to relax bladder muscles. Lifestyle changes. This may include: ?Weight loss. Talk to your health care provider about weight loss methods that would work best for you. ?Diet changes. This may include reducing how much alcohol and caffeine you consume, or drinking fluids at different times of the day. ?Not smoking. Do not use any products that contain nicotine or tobacco, such as cigarettes and e-cigarettes. If you need help quitting, ask your health care provider. Surgery. ?A device may be implanted to help manage the nerve signals that control urination. ?An electrode may be implanted to stimulate electrical signals in the bladder. ?A procedure may be done to change the shape of the bladder. This is done only in very severe cases. Follow these instructions at home: Lifestyle Make any diet or lifestyle changes that are recommended by your health care provider. These may include: ?Drinking less fluid or drinking fluids at different times of the day. ?Cutting down on caffeine or alcohol. ?Doing Kegel exercises. ?Losing weight if needed. ?Eating a healthy and balanced diet to prevent constipation. This may include: ?Eating foods that are high in fiber, such as fresh fruits and vegetables, whole grains, and beans. ?Limiting foods that are high in fat and processed sugars, such as fried and sweet foods. General instructions Take [id number] and prescription medicines only as told by your health care provider. If you were prescribed an antibiotic medicine, take it as told by your health care provider. Do notstop taking the antibiotic even if you start to feel better. Use any implants or pessary as told by your health care provider. If needed, wear pads to absorb urine leakage. Keep a journal or log to track how much and when you drink and when you feel the need to urinate. This will help your health care provider monitor your condition. Keep all follow-up visits as told by your health care provider. This is important. Contact a health care provider if: You have a fever. Your symptoms do not get better with treatment. Your pain and discomfort get worse. You have more frequent urges to urinate. Get help right away if: You are not able to control your bladder. Summary Overactive bladder refers to a condition in which a person has a sudden need to pass urine. Several conditions may lead to an overactive bladder. Treatment for overactive bladder depends on the cause and severity of your condition. Follow your health care provider's instructions about lifestyle changes, doing Kegel exercises, keeping a journal, and taking medicines. This information is not intended to replace advice given to you by your health care provider. Make sure you discuss any questions you have with your health care provider. Document Released: 06/01/2010 Document Revised: 11/26/2019 Document Reviewed: 08/21/2018 [employer] Patient Education 2020 [employer] Follow Up Care 09/04/2021 10:41:00 With:LILI WALSH, Donaldo Moreira, URL Address: [facility] [address], [place] [phone] When:04/12/[address] [facility] 11-09-2021 NoteHNO ID: [id number] Author: Ye Rodriguez PA-C Service: ? Author Type: Physician Scale Operator Type: Progress Notes Filed: 06/27/2021 4:56 PM Note Text: [facility] NOTE CC: Keturah Herrera is a 50 year old female who is self referred for facial swelling. ASSESSMENT: Xerostomia (primary encounter diagnosis) Enlarged parotid gland Tmj disorder PLAN: - Prescribed pilocarpine; instructed patient on appropriate use, side effects - Patient declines antibiotic due to side effects in the past; advised patient to continue monitoring for any changes in characteristics - Warm compress, gentle massage, analgesia as needed, soft diet advised, avoid clenching or grinding teeth, good oral hygiene, hydrating mouthwash as needed - Advised patient on red flag warning signs, symptoms that warrant immediate evaluation in ER - Follow up as clinically indicated Ye Rodriguez PA-C Comprehensive ENT HPI: 50 year old female presents to clinic for evaluation of facial swelling. Patient reports intermittent facial swelling for 6+ months. Patient endorses tenderness, but denies worsening of symptoms, facial weakness. Patient alternates between heat and ice during swelling episodes with mild improvement of pain, tenderness. Patient was evaluated by ENT on 12/14/2020: Assesment / Plan: 1. Parotid gland enlargement - Ambulatory referral to ENT - dicloxacillin (DYNAPEN) 500 mg capsule; Take 1 capsule (500 mg total) by mouth 4 (four) times a day for 10 days. Dispense: 40 capsule; Refill: 0 - guaiFENesin (MUCINEX) 1,200 mg tablet extended release 12hr; Take 1 tablet by mouth 2 (two) times a day. Dispense: 30 each; Refill: 0 2. Xerostomia - pilocarpine (SALAGEN, PILOCARPINE,) 5 mg tablet; Take 1 tablet (5 mg total) by mouth 3 (three) times a day. Dispense: 90 tablet; Refill: 0 Follow-up at completion of treatment. Patient requested pain control. It was explained to patient that opiates are not indicated for treatment. Patient did not take antibiotic, Mucinex, or pilocarpine as prescribed. According to patient, ENT provider told her to lose weight and walked out of the exam room. Patient denies facial asymmetry, weakness, dysphagia, fever, chills. Past medical history: PAST MEDICAL HISTORY Diagnosis Date - ADHD (attention deficit hyperactivity disorder) - Anxiety - bipolar - COPD (chronic obstructive pulmonary disease) ([facility]) - Depression - Ana Laura-Danlos disease - Fibromyalgia - Gastritis - GERD (gastroesophageal reflux disease) - Hyperlipidaemia - Kidney stones - Migraine - MVP (mitral valve prolapse) all per patient list - OCD (obsessive compulsive disorder) - Osteoarthritis - Sleep apnea, obstructive suppose to use a bi-pap Past surgical history: PAST SURGICAL HISTORY Procedure Laterality Date - PAST SURGICAL HISTORY OF tubal ligation - PAST SURGICAL HISTORY OF 2006 hysterectomy - PAST SURGICAL HISTORY OF carpal tunnel x2 - PAST SURGICAL HISTORY OF ulnar nerve release x2 - PAST SURGICAL HISTORY OF sinus surgery x2 - PAST SURGICAL HISTORY OF mortons neuromas x6 - PAST SURGICAL HISTORY OF tarsal tunnel x2 - PAST SURGICAL HISTORY OF lithotripsy - PAST SURGICAL HISTORY OF appy - PAST SURGICAL HISTORY OF breast bilat. - PAST SURGICAL HISTORY OF bladder suspension Current medication(s): Current Outpatient Medications Medication Sig - pilocarpine (SALAGEN) 5 mg tablet Take 1 tablet by mouth three times daily. - cholecalciferol (VITAMIN D-3) 5,000 unit tab Take 5,000 Units by mouth once daily. - thiamine (VITAMIN B-1) 100 mg tablet Take 100 mg by mouth once daily. - calcium carbonate/vitamin D3 (CALCIUM 500 + D, D3, ORAL) Take by mouth one time a week. - hydrOXYzine HCl (ATARAX) 50 mg tablet Take 50 mg by mouth every 6 hours as needed. - meclizine (ANTIVERT) 25 mg tab Take 25 mg by mouth three times daily as needed. - ARIPiprazole (ABILIFY) 15 mg tablet Take 30 mg by mouth once daily. In AM - CLOMIPRAMINE HCL (ANAFRANIL ORAL) Take 150 mg by mouth daily at bedtime. (Patient not taking: Reported on 04/19/2021 ) - Omeprazole (PRILOSEC) 40 mg capsule Take 40 mg by mouth once daily. In AM - Cetirizine (ZYRTEC) 10 mg cap Take 10 mg by mouth once daily. In AM - simvastatin (ZOCOR) 40 mg tablet Take 40 mg by mouth daily at bedtime. - promethazine (PHENERGAN) 25 mg tablet Take 25 mg by mouth as needed. - montelukast (SINGULAIR) 10 mg tablet Take 10 mg by mouth daily at bedtime. - dicyclomine (BENTYL) 20 mg tablet Take 20 mg by mouth every 6 hours as needed. - pramipexole (MIRAPEX) 1.5 mg tablet Take 1.5 mg by mouth daily at bedtime. - Loperamide HCl (IMODIUM) 2 mg tab Take 2 mg by mouth twice daily as needed. No current facility-administered medications for this visit. Allergies: ALLERGIES Allergen Reactions - Codeine Hives - Fish Derived Hives - Atomoxetine (more content not included)...[facility]09-01-2021 NoteHNO ID: [id number] Author: RT James(R) Service: ? Author Type: Furniture Removalist'S Assistant Type: Progress Notes Filed: 04/19/2021 1:56 PM Note Text: Radiology Service Progress Note PATIENT NAME: Keturah Herrera DATE OF SERVICE: April 19, 2021 TIME: 1:55 PM PATIENT IDENTITY VERIFICATION COMPLETED USING TWO (2) IDENTIFIERS: Name and Date of confirmed by patient verbally. FALL SCREENING: Has the patient had 2 falls in the last year or 1 fall with injury or currently using an Ambulatory Assistive Device (Walker, Cane, Wheelchair, Crutches, etc.)? No PATIENT GENDER DATA: Female. status: : No status: NO. PATIENT RELEVANT IMPLANT DATA REVIEWED: Yes RADIOLOGY DEPARTMENT: General X-ray: Exam(s) Completed: Upper Extremity X-Ray(s): Elbow, right PERIPHERAL IV DATA: Not applicable SIGNED BY: RT James(R) April 19, 2021 1:55 [facility]09-01-2021 NoteHNO ID: [id number] Author: Randi Farrell, DO Service: ? Author Type: Physician Type: Progress Notes Filed: 04/19/2021 2:33 PM Note Text: Earline is a new patient here today with complaints of right shoulder and elbow pain. She had a fall back at the end of February injuring her shoulder was told she had a fracture of her proximal humerus. She states his pain is improving but still quite significant and she is also complains of pain in her right elbow mainly on the radiocapitellar side. The remainder of her past medical and surgical histories are otherwise noted in the chart. Review of systems is negative unless otherwise noted. Exam alert pleasant female oriented x3. She has tenderness to palpation over her proximal humerus greater tuberosity and humeral head itself. There is no ecchymosis noted at this time. She does have good early range of motion of her shoulder with 30 to 40 degrees of abduction and flexion. Her right elbow is tender to palpation over her proximal radial neck. There is little to no swelling she can get through a full range of motion with the right elbow neurovascular is otherwise intact. X-rays of her shoulder proximal humerus reveal a nondisplaced greater tuberosity and humeral neck fracture. X-rays of the right elbow 3 views are negative for osseous abnormalities except for some mild arthritis. Impression: Nondisplaced fracture right greater tuberosity and humeral neck. Recommendations-I told her just continue using her right arm and shoulder. I explained her Codman exercises also gave her prescription for occupational therapy. She will follow-up in a month [facility] NoteHNO ID: [id number] Author: RT James(R) Service: ? Author Type: Furniture Removalist'S Assistant Type: Progress Notes Filed: 04/19/2021 1:09 PM Note Text: Radiology Service Progress Note PATIENT NAME: Keturah Herrera DATE OF SERVICE: April 19, 2021 TIME: 1:09 PM PATIENT IDENTITY VERIFICATION COMPLETED USING TWO (2) IDENTIFIERS: Name and Date of confirmed by patient verbally. FALL SCREENING: Has the patient had 2 falls in the last year or 1 fall with injury or currently using an Ambulatory Assistive Device (Walker, Cane, Wheelchair, Crutches, etc.)? No PATIENT GENDER DATA: Female. status: : No status: NO. PATIENT RELEVANT IMPLANT DATA REVIEWED: Yes RADIOLOGY DEPARTMENT: General X-ray: Exam(s) Completed: Upper Extremity X-Ray(s): Shoulder, AP / TRUE AP / AXILLARY right PERIPHERAL IV DATA: Not applicable SIGNED BY: Valery Kwong, RT(R) April 19, 2021 1:09 [facility]ments Appointment Date:12/11/2021 11:45:00 AM Scheduled Provider:Donaldo PEARSON MD Location:[facility] Appointment Type:URO Office Visit Appointment Date:01/11/2022 02:15:00 PM Scheduled Provider:Zulema CRAMER MD Location:[facility] App[facility]ment Type[facility] Future App[facility]ments Appointment Date:01/11/2022 02:15:00 PM Scheduled Provider:Zulema CRAMER MD Location:[facility] Appointment Type:BAD Follow Up Appointment Date:04/09/2022 01:45:00 PM Scheduled Provider:Donaldo PEARSON MD Location:[facility] Appointment Type:URO Office Visit [facility] evaluation + Plan note Future Appointments Appointment Date:02/01/2022 08:15:00 AM Scheduled Provider: Location:[facility] Appointment Type:Surgery PAT COVID Testing Appointment Date:02/01/2022 09:00:00 AM Scheduled Provider: Location:[facility] Appointment Type:Surgery FT Appointment Date:02/08/2022 09:40:00 AM Scheduled Provider: Location:[facility] Appointment Type:Surgery FT Appointment Date:04/09/2022 01:45:00 PM Scheduled Provider:Donaldo PEARSON MD Location:[facility] Appointment Type:URO Office Visit [facility] Evaluation + Plan note Future Appointments Appointment Date:02/01/2022 08:15:00 AM Scheduled Provider: Location:[facility] Appointment Type:Surgery PAT COVID Testing Appointment Date:02/01/2022 09:00:00 AM Scheduled Provider: Location:[facility] Appointment Type:Surgery FT Appointment Date:02/08/2022 09:40:00 AM Scheduled Provider: Location:[facility] Appointment Type:Surgery FT Appointment Date:03/06/2022 10:30:00 AM Scheduled Provider:Cady CALIX CNP [facility] Type:Cardiology Follow Up (FT) Appointment Date:04/09/2022 01:45:00 PM Scheduled Provider:[facility]onal[facility]SON MD [facility] App[facility]ments Appointment Date:02/08/2022 09:30:00 AM Scheduled Provider: Location:[facility] Appointment Type:Surgery FT Appointment Date:03/06/2022 10:30:00 AM Scheduled Provider:Cady CALIX CNP [facility] Type:Cardiology Follow Up (FT) Appointment Date:04/09/2022 01:45:00 PM Scheduled Provider:Donaldo PEARSON MD [facility] Future App[facility]ments Appointment Date:03/06/2022 10:30:00 AM Scheduled Provider:Cady CALIX CNP [facility] Type:Cardiology Follow Up (FT) Appointment Date:03/22/2022 08:15:00 AM Scheduled Provider: Location:[facility] Appointment Type:Surgery PAT COVID Testing Appointment Date:03/29/2022 08:40:00 AM Scheduled Provider: Location:[facility] Appointment Type:Surgery FT Appointment Date:04/09/2022 01:45:00 PM Scheduled Provider:Donaldo PEARSON MD [facility] [place] App[facility]ment Type:URO [facility] Future Appointments Appointment Date:03/20/2022 01:00:00 PM Scheduled Provider: [facility] Type:Cardiology Nurse Visit (FT) Appointment Date:03/22/2022 08:15:00 AM Scheduled Provider: Location:[facility] Appointment Type:Surgery PAT COVID Testing Appointment Date:03/29/2022 08:40:00 AM Scheduled Provider: Location:[facility] Appointment Type:Surgery FT Appointment Date:04/09/2022 01:45:00 PM Scheduled Provider:Donaldo PEARSON MD Location:[facility] Appointment Type:URO Office Visit Appointment Date:09/06/2022 01:15:00 PM Scheduled Provider:Elliott Solis MD [facility] (FT) [facility] Future Appointments Appointment Date:03/22/2022 08:15:00 AM Scheduled Provider: Location:[facility] Appointment Type:Surgery PAT COVID Testing Appointment Date:03/29/2022 08:40:00 AM Scheduled Provider: Location:[facility] Appointment Type:Surgery FT Appointment Date:04/09/2022 01:45:00 PM Scheduled Provider:Donaldo PEARSON MD Location:[facility] Appointment Type:URO Office Visit Appointment Date:09/06/2022 01:15:00 PM Scheduled Provider:Elliott Solis MD [facility] Type:[facility] Follow [facility] (FT) [facility] Future App[facility]ments Appointment Date:03/29/2022 08:40:00 AM Scheduled Provider: Location:[facility] Appointment Type:Surgery FT Appointment Date:04/09/2022 01:45:00 PM Scheduled Provider:Donaldo PEARSON MD Location:[facility] Appointment Type:URO Office Visit Appointment Date:09/06/2022 01:15:00 PM Scheduled Provider:Elliott Solis MD [facility] Type:[facility] Follow [facility] (FT) [facility] Future Appointments Appointment Date:05/09/2022 01:40:00 PM Scheduled Provider:Inessa Grajeda CNP Location:[facility] Appointment Type:BADH Follow Up Appointment Date:05/15/2022 01:30:00 PM Scheduled Provider:Cady CALIX CNP [facility] Type:Cardiology ED Follow Up (FT) Appointment Date:05/16/2022 01:20:00 PM Scheduled Provider:SHERI JIMENES PA-C Location:[facility] Appointment Type:URO Office Visit Appointment Date:09/06/2022 01:15:00 PM Scheduled Provider:Elliott Solis MD [facility] Type:[facility] (FT) [facility] Future Appointments Appointment Date:06/11/2022 11:00:00 AM Scheduled Provider: Location:[facility] Appointment Type:Surgery PAT COVID Testing Appointment Date:06/18/2022 09:45:00 AM Scheduled Provider: Location:[facility] Appointment Type:Surgery FT Appointment Date:09/06/2022 01:15:00 PM Scheduled Provider:Elliott Solis MD [facility] Type:Cardiology Follow Up (FT) Appointment Date:10/30/2022 03:00:00 PM Scheduled Provider:Elliott Solis MD [facility] Type:Cardiology Follow Up (FT) Future Scheduled Tests Laboratory* Fecal WBC Lactoferrin 05/09/22 * Giardia lamblia, Direct Detection EIA 05/09/22 * O & P Exam, Routine 05/09/22 * Clostridium difficile by PCR 05/09/22 * Enteric Panel by PCR 05/09/22 * CBC w/ Auto Diff 05/09/22 * Comprehensive Metabolic [facility]09/22 [facility] App[facility]ments Appointment Date:09/06/2022 01:15:00 PM Scheduled Provider:Elliott Solis MD [facility] Type:Cardiology Follow Up (FT) Appointment Date:10/30/2022 03:00:00 PM Scheduled Provider:Elliott Solis MD [facility] Type:Cardiology Follow Up (FT) Appointment Date:01/30/2023 01:20:00 PM Scheduled Provider:SHERI JIMENES PA-C Location:[facility] Appointment Type:URO Office Visit Future Scheduled Tests Laboratory* Fecal WBC Lactoferrin 05/09/22 * Giardia lamblia, Direct Detection EIA 05/09/22 * O & P Exam, Routine 05/09/22 * Clostridium difficile by PCR 05/09/22 * Enteric Panel by PCR 05/09/22 * CBC w/ Auto Diff 05/09/22 * Comprehensive Metabolic Panel 05/09/22 [facility] Future Appointments Appointment Date:10/30/2022 03:00:00 PM Scheduled Provider:Elliott Solis MD [facility] Type:Cardiology Follow Up (FT) Appointment Date:01/30/2023 01:20:00 PM Scheduled Provider:SHERI JIMENES PA-C Location:[facility] Appointment Type:URO Office Visit Future Scheduled Tests Laboratory* Fecal WBC Lactoferrin 05/09/22 * Giardia lamblia, Direct Detection EIA 05/09/22 * O & P Exam, Routine 05/09/22 * Clostridium difficile by PCR 05/09/22 * Enteric Panel by PCR 05/09/22 * CBC w/ Auto Diff 05/09/22 * Comprehensive Metabolic Panel 05/09/22 [facility] Future Appointments Appointment Date:10/23/2022 09:00:00 AM Scheduled Provider: [facility] Appointment Type:US Abdominal/Pelvis (FT) Appointment Date:10/29/2022 02:40:00 PM Scheduled Provider:Inessa Grajeda CNP Location:[facility] Appointment Type:BADH Follow Up Appointment Date:10/30/2022 03:00:00 PM Scheduled Provider:Elliott Solis MD [facility] Type:Cardiology Follow Up (FT) Appointment Date:10/31/2022 03:15:00 PM Scheduled Provider: Location:[facility] Appointment Type:Surgery PAT COVID Testing Appointment Date:11/07/2022 02:40:00 PM Scheduled Provider: Location:[facility] Appointment Type:Surgery FT Appointment Date:01/30/2023 01:20:00 PM Scheduled Provider:SHERI JIMENES PA-C Location:[facility] Appointment Type:URO Office Visit Future Scheduled Tests Laboratory* Fecal WBC Lactoferrin 05/09/22 * Giardia lamblia, Direct Detection EIA 05/09/22 * O & P Exam, Routine 05/09/22 * Clostridium difficile by PCR 05/09/22 * Enteric Panel by PCR 05/09/22 * CBC w/ Auto Diff 05/09/22 * Comprehensive Metabolic Panel 05/09/22 Radiology* US Abdomen Complete 10/23/22 [facility] Evaluation + Plan note Future Appointments Appointment Date:10/30/2022 08:00:00 AM Scheduled Provider: [facility] Appointment Type:US Abdominal/Pelvis (FT) Appointment Date:10/30/2022 03:00:00 PM Scheduled Provider:Elliott Solis MD [facility] Type:Cardiology Follow Up (FT) Appointment Date:11/07/2022 02:40:00 PM Scheduled Provider: Location:[facility] Appointment Type:Surgery FT Appointment Date:12/10/2022 02:40:00 PM Scheduled Provider:Inessa Grajeda CNP Location:[facility] Appointment Type:[facility] Follow Up Appointment Date:01/30/2023 01:20:00 PM Scheduled Provider:SHERI JIMENES PA-C Location:[facility] Appointment Type:URO Office Visit Future Scheduled Tests Laboratory* Clostridium difficile by PCR 05/09/22 * CBC w/ Auto Diff 05/09/22 * Comprehensive Metabolic Panel 05/09/22 Radiology* US Abdomen Complete 10/30/22 [facility] Evaluation + Plan note Future Appointments Appointment Date:11/07/2022 02:40:00 PM Scheduled Provider: Location:[facility] Appointment Type:Surgery FT Appointment Date:11/09/2022 10:00:00 AM Scheduled Provider: [facility] Appointment Type:US Abdominal/Pelvis (FT) Appointment Date:12/10/2022 02:40:00 PM Scheduled Provider:Inessa Grajeda CNP Location:[facility] Appointment Type:BAD Follow Up Appointment Date:01/30/2023 01:20:00 PM Scheduled Provider:SHERI JIMENES PA-C Location:[facility] Appointment Type:URO Office Visit Future Scheduled Tests Laboratory* Clostridium difficile by PCR 05/09/22 * CBC w/ Auto Diff 05/09/22 * Comprehensive Metabolic Panel 05/09/22 Radiology* US Abdomen Complete 11/09/22 [facility] Future Appointments Appointment Date:12/10/2022 02:40:00 PM Scheduled Provider:Inessa Grajeda CNP Location:[facility] Appointment Type:[facility] Follow Up Appointment Date:01/17/2023 09:50:00 AM Scheduled Provider: Location:[facility] Appointment Type:Surgery Appointment Date:01/30/2023 01:20:00 PM Scheduled Provider:SHERI JIMENES PA-C Location:[facility] Appointment Type:URO Office Visit Future Scheduled Tests Laboratory* Clostridium difficile by PCR 05/09/22 * CBC w/ Auto Diff 05/09/22 * Comprehensive Metabolic Panel 05/09/22 [facility] Future Appointments Appointment Date:01/30/2023 01:20:00 PM Scheduled Provider:SHEIR JIMENES PA-C Location:[facility] Appointment Type:URO Office Visit Appointment Date:02/06/2023 02:00:00 PM Scheduled Provider:Inessa Grajeda CNP Location:[facility] Appointment Type:[facility] Follow Up Future Scheduled Tests Laboratory* Clostridium difficile by PCR 05/09/22 * CBC w/ Auto Diff 05/09/22 * CBC w/ Auto Diff 12/25/22 * Comprehensive Metabolic Panel 05/09/22 * Comprehensive Metabolic Panel 12/25/22 [facility] Future Appointments Appointment Date:06/14/2023 11:00:00 AM Scheduled Provider: [facility] Appointment Type:CV Holter/Event (FT) Appointment Date:07/25/2023 11:45:00 AM Scheduled Provider:Elliott SOLIS MD [facility] Type:Cardiology Follow Up (FT) Future Scheduled Tests Laboratory* Pancreatic Elastase, Fecal 01/29/23 * Fecal WBC Lactoferrin 01/29/23 * Giardia lamblia, Direct Detection EIA 01/29/23 * O & P Exam, Routine 01/29/23 * Clostridium Difficile PCR 01/29/23 * Enteric Panel by PCR 01/29/23 * CBC w/ Auto Diff 12/25/22 * Comprehensive Metabolic Panel 12/25/22 Radiology* Echo Transthoracic Complete 05/20/23 [facility] Future Appointments Appointment Date:07/25/2023 11:45:00 AM Scheduled Provider:Elliott SOLIS MD [facility] Type:Cardiology Follow Up (FT) Appointment Date:07/30/2023 02:00:00 PM Scheduled Provider:SHERI JIMENES PA-C Location:[facility] Appointment Type:URO Office Visit Future Scheduled Tests Laboratory* Pancreatic Elastase, Fecal 01/29/23 * Fecal WBC Lactoferrin 01/29/23 * Giardia lamblia, Direct Detection EIA 01/29/23 * O & P Exam, Routine 01/29/23 * Clostridium Difficile PCR 01/29/23 * Enteric Panel by PCR 01/29/23 * CBC w/ Auto Diff 12/25/22 * Comprehensive Metabolic Panel 12/25/22 Radiology* Echo Transthoracic Complete 05/20/23 [facility] Future Appointments Appointment Date:07/30/2023 02:00:00 PM Scheduled Provider:SHERI JIMENES PA-C Location:[facility] Appointment Type:URO Office Visit Future Scheduled Tests Laboratory* Pancreatic Elastase, Fecal 01/29/23 * Fecal WBC Lactoferrin 01/29/23 * Giardia lamblia, Direct Detection EIA 01/29/23 * O & P Exam, Routine 01/29/23 * Clostridium Difficile PCR 01/29/23 * Enteric Panel by PCR 01/29/23 * CBC w/ Auto Diff 12/25/22 * Comprehensive Metabolic Panel 12/25/22 Radiology* Echo Transthoracic Complete 05/20/23 [facility] note Future Appointments Appointment Date:12/31/2023 01:00:00 PM Scheduled Provider:SHERI JIMENES PA-C Location:[facility] Appointment Type:URO Office Visit Future Scheduled Tests Laboratory* Pancreatic Elastase, Fecal 01/29/23 * Fecal WBC Lactoferrin 01/29/23 * Giardia lamblia, Direct Detection EIA 01/29/23 * O & P Exam, Routine 01/29/23 * Clostridium Difficile PCR 01/29/23 * Enteric Panel by PCR 01/29/23 * CBC w/ Auto Diff 12/25/22 * Comprehensive Metabolic Panel 12/25/22 Radiology* Echo Transthoracic Complete 05/20/23 [facility] evaluation noteNo assessment information available [facility] Work Phone: Evaluation noteNo InformationNortWell[facility] Other Evaluation note* Diagnosis Oral thrush Candidiasis of mouth documented in this encounter [facility]* Diagnosis Chronic bilateral low back pain with sciatica, sciatica laterality unspecified documented in this encounter [facility]* Diagnosis Anxiety state Anxiety state, unspecified documented in this encounter [facility] SystemHisour [facility] general Narrative - Reported* Type Description Date Medical History Hypertension Medical History Agoraphobia Medical History Hypokalemia Medical History Carpal tunnel Medical History Migraines Medical History Bipolar Medical History Anxiety Medical History PTSD Medical History ADHD Medical History IBS Medical History Lactose Intolerant Medical History Fibromyalgia Medical History Chronic pain Medical History COPD Medical History Severe CELINE (2014) - intolerant t o PAP therapy Medical History type II diabetes Surgical History Hysterectomy 2006 Surgical History Apendectomy 2012 Surgical History Ulnar nerve release x2 1998 Surgical History Sinus surgery 1990 Surgical History Carpal tunnel surgery 1992 Surgical History Tarsal tunnel surgery 2011 Surgical History Mortons Neuromas 2011 Surgical History Milk ducts removed from breasts 2010 Surgical History Lithotripsy 1995 Surgical History Ingrown toenail x [address]MRI Surgical History broken right foot toe Surgical History rt knee surgery arthroscopy Hospitalization History Hypokalemia, nausea, vom iting -2014 Hospitalization History see above surgical histo ry [facility] Other Hispisv general Narrative - Reported* Type Description Date Medical History Hypertension Medical History Agoraphobia Medical History Hypokalemia Medical History Carpal tunnel Medical History Migraines Medical History Bipolar Medical History Anxiety Medical History PTSD Medical History ADHD Medical History IBS Medical History Lactose Intolerant Medical History Fibromyalgia Medical History Chronic pain Medical History COPD Medical History Severe CELINE (2014) - intolerant t o PAP therapy Medical History type II diabetes Medical History Esophageal stricture Surgical History Hysterectomy 2006 Surgical History Apendectomy 2012 Surgical History Ulnar nerve release x2 1998 Surgical History Sinus surgery 1990 Surgical History Carpal tunnel surgery 1992 Surgical History Tarsal tunnel surgery 2011 Surgical History Mortons Neuromas 2012 Surgical History Milk ducts removed from breasts 2010 Surgical History Lithotripsy 1995 Surgical History Ingrown toenail x [address]/MRI Surgical History broken right foot toe Surgical History rt knee surgery arthroscopy Surgical History Esophageal dilatation Hospitalization History Hypokalemia, nausea, vom iting -2014 Hospitalization History see above surgical histo ry [facility] Other Hospital course Narrative No data available for this section [facility] No data available for this section [facility] CenterInstructionsNot on filedocumented in this encounter [facility] SystemInstructionsNot on filedocumented in this encounter [facility] CenterInstructionsNot on filedocumented in this encounter [facility] SystemInstructionsNot on filedocumented in this encounter [facility] SystemProgress note No data available for this section [facility] Summary Purpose Family History No Family History Records Found Relationship Condition Age at Onset Recorded Date/T corey Not Specified Malignant neoplasm Unknown Hypertension Unknown Coronary artery disease Unknown Diabetes mellitus Unknown brother Malignant neoplasm Unknown Advance Directives No Advanced Directives Records Found Advance Directive Response Recorded Date/ Time Advance Directives No May 28, 2019 12:46pm Chief Complaint and Reason for Visit Chief Complaint g02.97 f17.210 Additional Source Comments INFORMATION SOURCE (unrecogn ized section and content) DATE CREATED AUTHOR 10/09/2021 [facility] DATE CREATED AUTHOR AUTHOR'S ORGANIZ ATION 02/22/2022 [facility] DATE CREATED AUTHOR AUTHOR'S ORGANIZ ATION 01/28/2023 [facility] DATE CREATED AUTHOR AUTHOR'S ORGANIZ ATION 04/11/2023 [facility] DATE CREATED AUTHOR AUTHOR'S ORGANIZ ATION 06/26/2023 [facility] DATE CREATED AUTHOR AUTHOR'S ORGANIZ ATION 08/29/2023 [facility] DATE CREATED AUTHOR AUTHOR'S ORGANIZ ATION 09/19/2023 [facility] DATE CREATED AUTHOR AUTHOR'S ORGANIZ ATION 09/19/2023 [facility] Care Team (unrecognized sect ion and content) Team Status: Active Member Role Status Dates Robert Giron DO Primary Care Provider Active Team Status: Inactive Member Role Status Dates Robert Giron , Primary Care Provider Active Valarie Herrera APRN [facility] Attending Provider Active [employer] Relationship Specialty Start Date End Date Robert Giron DO [address] [place] [address] PCP - General Family Medicine 05/10/22 [employer] Relationship Specialty Start Date End Date Robert Giron DO [address], [place] [address] PCP - General Family Medicine 05/10/22 [employer] Relationship Specialty Start Date End Date Robert Giron DO [address], [place] [address] PCP - General Family Medicine 05/10/22 [employer] Relationship Specialty Start Date End Date Robert Giron DO [address], [place] [address] PCP - General Family Medicine 05/10/22 Goals (unrecognized section and content) Goals may be documented in a n alternate section REASON FOR VISIT (unrecogniz ed section and content) Reason Comments Med Refill Reason Onset Date Comments Med Refill 09/08/2023 FOR RECORDS PERTAINING TO PATIENTS WHO ARE OR HAVE BEEN ENROLLED IN A CHEMICAL DEPENDENCY/SUBSTANCEABUSE PROGRAM, SOME INFORMATION MAY BE OMITTED. This clinical summary was aggregated from multiple sources. Caution should be exercised in using it in the provision of clinical care. This summary normalizes information from multiple sources, and as a consequence, information in this document may materially change the coding, format and clinical context of patient data. In addition, data may be omitted in some cases. CLINICAL DECISIONS SHOULD BE BASED ON THE PRIMARY CLINICAL RECORDS. [employer] [facility]. provides no warranty or guarantee of the accuracy or completeness of information in this document.
[2023-09-20 09:53] LABS: Amphetamine Screen Urine NEGATIVE (NEGATIVE); Barbiturates Screen Urine NEGATIVE (NEGATIVE); Benzodiazepines Screen Urine POSITIVE (NEGATIVE); Buprenorphine Screen Urine NEGATIVE (NEGATIVE); Cannabinoid Screen Urine NEGATIVE (NEGATIVE); Cocaine Screen Urine NEGATIVE (NEGATIVE); Methadone Screen Urine NEGATIVE (NEGATIVE); Methamphetamines Screen Urine NEGATIVE (NEGATIVE); Opiate Screen Urine NEGATIVE (NEGATIVE); Oxycodone Screen Urine NEGATIVE (NEGATIVE); Phencyclidine Screen Urine NEGATIVE (NEGATIVE); Tricyclic Antidepressant Urine POSITIVE (NEGATIVE)
== END 2023-09-20 08:35 | disposition home or self-care (01) ==
LOC: LAB 08:35
PROVIDERS: PCP Family Medicine; Visit Provider Psychiatry & Neurology Neurology
DX: M51.36 Other intervertebral disc degeneration, lumbar region (principal); Z79.899 Other long term (current) drug therapy
CPT/HCPCS: 80307

== ENCOUNTER 2023-09-20 08:49 | Outpatient (OUT) | payer OTHER, SELFPAY ==
--- NOTE | 2023-09-20 | ECG_ITS ---
[facility] Test Date: 2023-09-20 Pat Name: ROCK HERRERA Department: Room: - Gender: Female Director Learning: : 1970 Requested By: MELISSA ARANGO Order Number: [id number] Reading MD: WILLA GAINES Measurements Intervals [place] Rate: 68 P: 42 ND: 156 QRS: 59 QRSD: 97 T: 41 QT: 377 QTc: 402 Interpretive Statements SINUS RHYTHM NONSPECIFIC T-WAVE ABNORMALITY Compared to ECG 06/27/2023 12:14:13 T-wave abnormality now present Electronically Signed On 09-21-2023 7:10:39 EST by WILLA GAINES
--- NOTE | 2023-09-20 09:35 | XR_ITS ---
The [address] [address] Patient Name: ROCK HERRERA MRN: [id number] date: 1970 Sex: F Assigned Patient Location: LAB Current Patient Location: LAB Accession/Order Number: [id number] Exam Date: 09/20/2023 09:42 Report Date: 09/20/2023 09:52 At the request of: MELISSA ARANGO Procedure: XR chest 2V EXAM: XR chest 2V HISTORY: preop examination COMPARISON: None. TECHNIQUE: PA and lateral views of the chest. FINDINGS: The cardiomediastinal silhouette is normal. Interstitial opacity. There is no pneumothorax. No pleural effusion is noted. The osseous structures are intact. XR/XR chest 2V IMPRESSION: Probable congestion. Suggestion of COPD. Electronically authenticated by: MARY TOSCANO Date: 09/20/2023 09:52
[2023-09-20 09:44] LABS: Basophils Absolute Auto 0.1 10^3/uL (0.0-0.1); Basophils Percent Auto 0.7 % (0.2-2.0); Eosinophils Absolute Auto 0.2 10^3/uL (0.0-0.7); Eosinophils Percent Auto 1.1 % (0.9-7.0); Hemoglobin 12.9 g/dL (12.0-16.0); Immature Granulocytes Abs Auto 0.09 10^3/uL (0.00-0.03); Immature Granulocytes Pct Auto 0.7 % (0.0-0.5); Lymphocytes Percent Auto 29.2 % (20.5-60.0); Mean Corpuscular HGB Conc 33.1 g/dL (29.9-35.2); Mean Corpuscular Hemoglobin 32.7 pg (26.7-34.0); Monocytes Absolute Auto 0.8 10^3/uL (0.3-0.8); Monocytes Percent Auto 5.9 % (1.7-12.0); Neutrophils Absolute Auto 8.4 10^3/uL (1.4-6.5); Neutrophils Percent Auto 62.4 % (43.0-75.0); Platelet Count 230 10^3/uL (150-450); Red Blood Count 3.94 10^6/uL (4.20-5.40); Red Cell Distribution Width 13.1 % (11.0-15.0); White Blood Count 13.5 10^3/uL (4.0-11.0)
[2023-09-20 09:48] LABS: Anion Gap 10.5; BUN Creatinine Ratio 3.5; Calcium 9.5 mg/dL (8.5-10.1); Carbon Dioxide 32.4 mmol/L (21.0-32.0); Chloride 102 mmol/L (98-107); Estimated GFR (African America >60 (>=60); Estimated GFR (Non-African Ame 50 (>=60); Glucose 159 mg/dL (74-106); Potassium 3.9 mmol/L (3.5-5.1); Sodium 141 mmol/L (136-145)
== END 2023-09-20 08:50 | disposition home or self-care (01) ==
LOC: LAB 08:49
PROVIDERS: PCP Family Medicine
DX: M51.36 Other intervertebral disc degeneration, lumbar region (principal); Z79.899 Other long term (current) drug therapy; Z01.818 Encounter for other preprocedural examination
CPT/HCPCS: 36415; 71046; 80048; 80307; 85025; 93005

== ENCOUNTER 2023-09-27 13:21 | Outpatient (OUT) | payer OTHER, SELFPAY ==
--- NOTE | 2023-09-27 13:23 | MM_ITS ---
Patient Name: ROCK HERRERA MR#: [id number] : 1970 Exam Date: 09/27/2023 Ordering Doctor: DR David Villalobos . RADIOLOGY REPORT PROCEDURE: MM TOMOSYNTHESIS SCREENING BI COMPARISON: MG MAMM SCREEN 3D TAJ CAD, 10/23/2021. MG MAMM DIAGNOSTIC 3D TAJ CAD, 09/10/2022. INDICATIONS: Screening Calculator Name NCI Breast Cancer Risk Assessment Tool 5 Year Breast Cancer Risk 1.20% Lifetime Breast Cancer Risk 9.20% Personal Breast Cancer No Personal Ovarian Cancer No Treatments None Family Cancers Mother with ovarian cancer at age ~60. LOCATION: [facility] BREAST COMPOSITION: Heterogeneously dense,which may obscure small masses. FINDINGS: DIAGNOSTIC CATEGORY 2--BENIGN FINDING. NO CHANGE FROM COMPARISON. Scattered benign-appearing calcifications are present. RIGHT BREAST: No significant suspicious finding. LEFT BREAST: No significant suspicious finding. Stable cluster of microcalcifications lower inner quadrant, anterior to mid breast RECOMMENDATIONS: ROUTINE MAMMOGRAM AND CLINICAL EVALUATION IN 12 MONTHS. PLEASE NOTE: A NORMAL MAMMOGRAM DOES NOT EXCLUDE THE POSSIBILITY OF BREAST CANCER. A CLINICALLY SUSPICIOUS PALPABLE LUMP SHOULD BE BIOPSIED. Dictated by: Donny Coombs MD on 09/27/2023 at 14:15 Approved by: Donny Coombs MD on 09/27/2023 at 14:16
--- OUTSIDE RECORDS SUMMARY | 2023-09-27 13:36 | XMS_ITS | CCD ---
Author Name Unknown Address [address] [place] [address] [facility] Care Team Providers Care Md Do Resident Urgent Care Name Role Phone ROBERT GIRON Primary Care Physician [phone] Valarie Herrera Unavailable VALARIE HERRERA Attending Unavailable FURLOLAURIE, DR ROBERT Santiago Primary Care Unavailable JAVIER, VALARIE Admitting Unavailable NEFNICOLE DENG Consulting Unavailable JAVIER, VALARIE Consulting Unavailable CAROLA ., JAMAR Attending Unavailable FURLOLAURIE, DR ROBERT Santiago Primary Care Unavailable CAROLA ., JAMAR Admitting Unavailable CAROLA ., JAMAR Consulting Unavailable MISC, DR MALIN Attending Unavailable MISC, DR MALIN Admitting Unavailable FURLONG, DR ROBERT Santiago Primary Care Unavailable CAROLA ., JAMAR Admitting Unavailable FURLOLAURIE, DR ROBERT Santiago Primary Care Unavailable CAROLA ., JAMAR Consulting Unavailable CAROLA ., JAMAR Attending Unavailable PAY ., DR CABEZAS Attending Unavailable FURLONG, DR ROBERT Santiago Primary Care Unavailable DANANY ., SHARYN LEES Consulting Unavailabl e PAY [...] REINMOHAMUD, DR ABDELRAHMAN Santiago Attending Unavailabl e REINECK, DR ABDELRAHMAN Santiago Admitting Unavailabl e PAULA, SUJIT Consulting Unavailable FURLONG, DR ROBERT Santiago Primary Care Unavailable REINECK, DR ABDELRAHMAN Santiago Consulting Unavailabl e REINECK, DR ABDELRAHMAN Santiago Attending Unavailabl e REINECK, DR ABDELRAHMAN Santiago Admitting Unavailabl e RASTEGAR, LILIANA Consulting Unavailable FURLONG, DR ROBERT Santiago Primary Care Unavailable GRECHNY ., SHARYN LEES Consulting UnavailTUTU Mclean Attending Unavailable TUTU HANSON Admitting Unavailable DO Robert Giron Primary Care Provider WILMA Herrera Attending Provider [phone] Valarie Herrera Attending Unavailable Valarie Herrera Admitting Unavailable Robert Giron Primary Care Unavailable NURIA SANCHEZ Referring Unavailable DRAGAN SEN Primary Care Unavailable Furlong Robert BYRNES Primary Care Provider ANDRIA CARTER Attending Unavailable ROBERT GIRON Referring Unavailable NURIA SANCHEZ Attending Unavailable MARTIN ARANGO Attending Unavailable ROSHAN HOLLOWAY Attending Unavailable ROBERT GIRON Referring Unavailable ИВАН HARMAN Attending Unavailable ROBERT GIRON Referring Unavailable RITCHIE KIRBY Attending Unavailab le ИВАН HARMAN Attending Unavailable ROBERT GIRON Referring Unavailable ИВАН HARMAN Attending Unavailable ROBERT GIRON Referring Unavailable MARTIN ARANGO Attending Unavailable FRENCH LEVINE Attending Unavailable ROBERT GIRON Referring Unavailable Martin Arango Referring Unavailable Martin Arango Attending Unavailable Martin Arango Admitting Unavailable YUDYSHERI Attending Unavailable YUDYSHERI ROBLES Attending Unavailable Elliott SOLIS Attending Unavailable Elliott SOLIS Admitting Unavailable NONE, XXXX Referring Unavailable SALAM, Poole Referring Unavailable SALAM, Poole Attending Unavailable SALAM, Poole Admitting Unavailable STANG, Cady L Referring Unavailable STANG, Cady L Attending Unavailable STANG, Cady L Admitting Unavailable Nicci, Inessa A Attending Unavailable Nicci, Inessa A Attending Unavailable YUDYSHERI E Attending Unavailable Nicci, Inessa A Attending Unavailable Nicci, Inessa A Attending Unavailable Nicci, Inessa A Attending Unavailable Nicci, Inessa A Admitting Unavailable Nicci, Inessa A Referring Unavailable Nicci, Inessa A Attending Unavailable Nicci, Inessa A Admitting Unavailable Santos Landry Attending Unavailable Santos Landry Attending Unavailable Martin Arango Attending Unavailable Martin rAango Admitting Unavailable Martin Arango Referring Unavailable STANG, Cady L Attending Unavailable STANG, Cady L Admitting Unavailable Martin Arango Referring Unavailable Elliott SOLIS Attending Unavailable Elliott SOLIS Admitting Unavailable NONE, XXXX Referring Unavailable STANG, Cady L Attending Unavailable NONE, XXXX Referring Unavailable STANG, Cady L Admitting Unavailable STANG, Cady L Attending Unavailable NONE, XXXX Referring Unavailable Elliott SOLIS Attending Unavailable Ellitot SOLIS Admitting Unavailable NONE, XXXX Referring Unavailable Robert Giron MD Primary Care Provider ROBERT GIRON Referring Unavailable ROBERT GIRON Primary Care Unavailable Allergies Allergy Classification Reported Allergen(s) Allergy Type Date of Onset Reaction(s) Facility (20 sources) Acetaminophen / HYDROcodone; 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: [acetaminophen-hydr ocodone] Drug Allergy Unknown (qualifier value), [facility] (20 sources) Adhesive Tape; 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: [Tape] Drug allergy Eruption of skin (disorder), [facility] (20 sources) Amitriptyline; 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: [amitriptyline] Drug Allergy Vomiting (disorder), Abnormal Behavior [facility] (20 sources) Amoxicillin; 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: [amoxicillin] Drug Allergy Vomiting [facility] (20 sources) Amoxicillin / Clavulanate; 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: [amoxicillin-clavul anate] Drug Allergy Vomiting (disorder), GI Disturbance [facility] (20 sources) atomoxetine; 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: [atomoxetine] Drug Allergy Palpitations, Other (See Comments) [facility] Comment on above: (atomoxetine) (20 sources) buPROPion; 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: [bupropion] Drug Allergy Palpitations [facility] (20 sources) Codeine; 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: [codeine] Drug Allergy Eruption of skin (disorder), Hives, Rash [facility] (20 sources) Dexamethasone; 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: [dexamethasone] Drug Allergy Menopausal flushing (finding) [facility] Comment on above: (dexamethasone) (20 sources) Doxycycline; 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: [doxycycline] Drug Allergy GI Disturbance, Palpitations [facility] (20 sources) DULoxetine; 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: [duloxetine] Drug Allergy Unknown (qualifier value), hives [facility] (20 sources) fluticasone; 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: [fluticasone] Drug Allergy Unknown (qualifier value) [facility] (20 sources) fluticasone / salmeterol; 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: [fluticasone-salmet su] Drug Allergy Eruption of skin (disorder), rash, Itching, Palpitations [facility] (20 sources) gabapentin; 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: [gabapentin] Drug Allergy Unknown (qualifier value) [facility] (20 sources) Ibuprofen; 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: [ibuprofen] Drug Allergy Eruption of skin (disorder), rash, GI Disturbance, Nausea And Vomiting [facility] (20 sources) Ketorolac; 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: [ketorolac] Drug Allergy 017 Unknown (qualifier value) [facility] (20 sources) meloxicam; 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: [meloxicam] Drug Allergy Unknown (qualifier value) [facility] (20 sources) Methadone; 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: [methadone] Drug Allergy 011 Vomiting (disorder), GI Disturbance, Nausea And Vomiting [facility] (20 sources) milnacipran; 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: [milnacipran] Drug Allergy Unknown (qualifier value), Other (See Comments) [facility] (20 sources) moxifloxacin; 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: [moxifloxacin] Drug Allergy Eruption of skin (disorder), rash, Nausea Only [facility] (20 sources) NITROFURANTOIN, MACROCRYSTALS / Nitrofurantoin, Monohydrate; 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: [nitrofurantoin] Drug Allergy Other (See Comments) [facility] (20 sources) OXcarbazepine; 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: [oxcarbazepine] Drug Allergy 017 Unknown (qualifier value), GI Disturbance, Palpitations [facility] (20 sources) PARoxetine; 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: [paroxetine] Drug Allergy 023 Unknown (qualifier value), Hives [facility] (20 sources) Penicillins; 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: [penicillins] Drug allergy Unknown (qualifier value), GI Disturbance, Hives, Other (See Comments), Vomiting [facility] (20 sources) pregabalin; 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: [pregabalin] Drug Allergy 017 Unknown (qualifier value), Other (See Comments), Palpitations [facility] (20 sources) rOPINIRole; 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: [ropinirole] Drug Allergy Altered mental status [facility] (20 sources) Shellfish; 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: [shellfish] Drug allergy Eruption of skin (disorder), rash [facility] (20 sources) Sulfamethoxazole / Trimethoprim; 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: [sulfamethoxazole-t rimethoprim] Drug Allergy 12-12-2 019 Vomiting (disorder) [facility] (20 sources) topiramate; 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: [topiramate] Drug Allergy 017 Vomiting (disorder), GI Disturbance, Other (See Comments) [facility] (20 sources) Valproate; 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: [divalproex sodium] Drug Allergy Alopecia (disorder) [facility] (20 sources) Verapamil; Translations: [verapamil] Drug Allergy 015 Vomiting (disorder), GI Disturbance, GI intolerance [facility] (20 sources) ziprasidone; Translations: [ziprasidone] Drug Allergy 014 Unknown (qualifier value), Palpitations, Other (See Comments) [facility] (5 sources) Adhesive Tape; Translations: [Adhesive tape] Allergy to substance contact dermatitis [facility] (8 sources) Fish Containing Products; Translations: [Fish Containing Products] Allergy to substance 012 Rash [facility] (6 sources) Codeine Drug Allergy rash [facility] [employer] Other (6 sources) torodol Propensity to adverse reactions severe abdominal pain [facility] [employer] Other (20 sources) Methocarbamol; Translations: [methocarbamol] Drug Allergy 023 Unknown (qualifier value), Other (See Comments) [facility] (2 sources) Acetaminophen / HYDROcodone Drug Allergy [facility] (2 sources) Amitriptyline Drug Allergy [facility] (2 sources) Amoxicillin / Clavulanate Drug Allergy [facility] (3 sources) atomoxetine; Translations: [Strattera] Drug Allergy [facility] (1 source) atorvastatin Drug Allergy [facility] (2 sources) buPROPion Drug Allergy [facility] (2 sources) carBAMazepine Drug Allergy [facility] (1 source) Clindamycin Drug Allergy 016 [facility] (2 sources) Codeine Drug Allergy [facility] (3 sources) Dexamethasone; Translations: [Decadron] Drug Allergy [facility] (2 sources) Diclofenac Drug Allergy [facility] (2 sources) Doxycycline Drug Allergy [facility] (2 sources) DULoxetine Drug Allergy [facility] (7 sources) Fish derivative; Translations: [FISH DERIVED] Drug allergy (disorder) Hives [facility] (2 sources) Fluorometholone Drug Allergy [facility] (2 sources) fluticasone / salmeterol Drug Allergy [facility] (2 sources) gabapentin Drug Allergy [facility] (2 sources) hydrOXYzine Drug Allergy [facility] (2 sources) Ibuprofen Drug Allergy [facility] (2 sources) Ibuprofen Drug Allergy [facility] (1 source) Ketorolac Drug Allergy [facility] (2 sources) Ketorolac Drug Allergy [facility] (2 sources) meloxicam Drug Allergy [facility] (2 sources) Methadone Drug Allergy [facility] (2 sources) Methocarbamol Drug Allergy [facility] (2 sources) milnacipran Drug Allergy [facility] (2 sources) moxifloxacin Drug Allergy [facility] (2 sources) Nitrofurantoin Drug Allergy [facility] (2 sources) OXcarbazepine Drug Allergy [facility] (2 sources) PARoxetine Drug Allergy [facility] (3 sources) pregabalin; Translations: [Lyrica] Drug Allergy [facility] (2 sources) rOPINIRole Drug Allergy [facility] (1 source) Sulfonamides (Antibiotic) Drug allergy (disorder) [facility] (2 sources) topiramate Drug Allergy [facility] (2 sources) Valproate Drug Allergy [facility] (1 source) Verapamil Drug Allergy [facility] (3 sources) ziprasidone; Translations: [Geodon] Drug Allergy [facility] (7 sources) Adhesive agent; Translations: [ADHESIVE] Propensity to adverse reactions to drug [facility] Work Phone: (6 sources) atomoxetine; Translations: [ATOMOXETINE HCL] Drug Allergy GI Disturbance, Palpitations [facility] (5 sources) buPROPion; Translations: [BUPROPION HCL] Drug Allergy GI Disturbance, Palpitations [facility] (6 sources) DULoxetine; Translations: [DULOXETINE HCL] Drug Allergy [facility] (6 sources) Eicosapentaenoate; Translations: [EICOSAPENTAENOIC ACID] Drug Allergy [facility] (5 sources) Ketorolac; Translations: [KETOROLAC TROMETHAMINE] Drug Allergy Other (See Comments) [facility] (5 sources) moxifloxacin; Translations: [MOXIFLOXACIN-SOD.C HLORIDE(ISO)] Drug Allergy Nausea [facility] (5 sources) PARoxetine; Translations: [PAROXETINE HCL] Drug Allergy [facility] (7 sources) Shellfish; Translations: [SHELLFISH CONTAINING PRODUCTS] Propensity to adverse reactions to drug [facility] (5 sources) Shellfish; Translations: [SHELLFISH DERIVED] Propensity to adverse reactions to drug [facility] (5 sources) Sulfamethoxazole; Translations: [SULFAMETHOXAZOLE] Drug Allergy 022 Other (See Comments) [facility] (5 sources) Valproate; Translations: [DIVALPROEX] Drug Allergy [facility] (5 sources) Valproate; Translations: [VALPROIC ACID] Drug Allergy [facility] (5 sources) Verapamil; Translations: [VERAPAMIL HCL] Drug Allergy [facility] (6 sources) ziprasidone; Translations: [ZIPRASIDONE HCL] Drug Allergy Palpitations, Hives [facility] (5 sources) Adhesive Tape-Silicones; Translations: [ADHESIVE TAPE-SILICONES] Propensity to adverse reactions to drug Other (See Comments), Rash [facility] (1 source) Fish - dietary; Translations: [Fish] Food allergy (disorder) [facility] (1 source) atomoxetine Drug Allergy Palpitations [facility] (1 source) Ketorolac Propensity to adverse reactions 015 [facility] (1 source) Ketorolac trometamol Allergy to substance 011 Hives [facility] (1 source) meloxicam Drug Allergy [facility] (1 source) Methocarbamol Drug Allergy 023 [facility] (1 source) milnacipran Drug Allergy 022 Hives [facility] (1 source) Nitrofurantoin Drug Allergy 022 Hives, Rash [facility] (1 source) Oxcarbazepine Allergy to substance 011 GI intolerance, Hives, Palpitations [facility] (1 source) Pregabalin Allergy to substance 013 Palpitations [facility] (1 source) Shellfish Allergy to substance 023 Rash [facility] (1 source) Sulfamethoxazole Propensity to adverse reactions 022 [facility] (1 source) Topiramate Allergy to substance 02-07- 023 GI intolerance [facility] (1 source) Valproate Drug Allergy 019 [facility] (1 source) ziprasidone Drug Allergy 011 Palpitations [facility] (2 sources) Amoxicillin-Pot Clavulanate; Translations: [AMOXICILLIN-POT CLAVULANATE] Drug Intolerance 011 Nausea And Vomiting [facility] (1 source) Aloe-Sodium Chloride Propensity to adverse reactions 024 [facility] (1 source) Fish-Derived Products Drug Intolerance [facility] (1 source) Moxifloxacin Hcl In Nacl Drug Intolerance [facility] (1 source) Other Propensity to adverse reactions Hives [facility] (1 source) Wound Dressing Adhesive Drug Allergy Rash [facility] (1 source) Dexamethasone; Translations: [DEXAMETHASONE (PF)] Drug Allergy [facility] (1 source) Sulfamethoxazole / Trimethoprim; Translations: [SULFAMETHOXAZOLE-T RIMETHOPRIM] Drug Allergy [facility] (1 source) NITROFURANTOIN MONOHYD/M-CRYST; Translations: [NITROFURANTOIN MONOHYD/M-CRYST] Propensity to adverse reactions to drug (disorder) [facility] (1 source) FLUTICASONE PROPION-SALMETEROL; Translations: [FLUTICASONE PROPION-SALMETEROL] Propensity to adverse reactions to drug (disorder) [facility] Medications Current Medications Medication Drug Class(es) [...] Blood glucose Start Date: 10/25/21 Status: Ordered [id number] 200 actuat albuterol 0.09 mg/actuat metered dose inhaler (18 sources) beta2-Adrenergic Agonist Start: 06-14-2021 take 1 puff(s) by inhalation every four to six hours Albuterol Sulfate Active 2 PUFF INHALATION EVERY 4-6 HOURS June 14, 2021 12:00am albuterol (2.5 M G/3ML) 0.083% nebulizer solution Take 2.5 mg by nebulization every 6 (six) hours. 0 Active take 1 puff(s) by in halation in the morning, then take 1 puff(s) by inhalation in the evening, then take 1 puff(s) by inhalation at bedtime Ventolin HFA 108 (90 Base) MCG/ACT inhal er Inhale 1 puff in the morning and 1 puff in the evening and 1 puff before bedtime. 0 Active take 1 puff(s) by in halation every four hours as needed Proventil HFA 108 (90 Base) MCG/ACT 1 pu ff as needed Inhalation every 4 hrs Active take 2 puff(s) by in halation every [...] nebulizer alendronic acid 70 mg oral tablet (5 sources) Bisphosphonate Start: 2022 take 1 tablet by mouth every week alendronate (Fosamax) 70 MG tablet Indications: Osteopenia after menopause TAKE ONE TABLET BY MOUTH ONCE WEEKLY 30 MINUTES BEFORE THE FIRST FOOD, BEVERAGE, OR MEDICINE OF THE DAY WITH PLAIN WATER 5 tablet 07/01/2023 Active ALPRAZolam 1 mg oral tablet (20 [...] Daily Start Date: 11/16/22 Status: Ordered Start: 04-09-2022 ARIPiprazole ( Abilify) 20 MG tablet Take 15 mg by mouth in the morning. 0 04/09/2022 Active Start: 04-28-2018 take 30 mg by mouth [...] Start: 12-27-2022 take 1 tablet by mouth in the morning atorvastatin (Lipitor) 80 MG tablet Take 80 mg by mouth in the morning. 0 01/03/2023 Active Start: 04-28-2018 take 40 mg by mouth once daily at bedtime Atorvastatin Active 40 MG PO Daily at bedtime June 14, 2021 12:00am Start: 04-28-2018 take 2 tablets by mo [facility] at bedtime Lipitor 40 mg Tab 80 mg = 2 tab(s), Oral, Bedtime, Refills(s) 0, High cholesterol Start Date: 04/28/18 Status: Ordered azithromycin 250 mg Tab 5-day Dose Pack (Z-Floyd) (1 source) Start: 10-20-2022 End: 10-25-2022 azithromycin 250 mg Tab 5-day Dose Pack (Z-Floyd) = 1 packet(s), Oral, As Directed, as directed on package labeling, X 5 day(s), # 6 tab(s), Refills(s) 0, Pharmacy: [id number], 163, cm, 10/20/22 10:48:00 EST, Height/Length [...] day(s), # 28 cap(s), Refills(s) 0, Pharmacy: [id number], 163, cm, 10/29/22 14:56:00 EDT, Height/Length Dosing, 77.3, kg, 10/29/22 14:56:00 EDT, Weight Dosing Start Date: 10/29/22 Stop Date: 11/26/22 Status: Ordered blood-glucose meter,continuous (DEXCOM G6 ELECTRICIAN AIRCRAFT) misc (4 sources) Start: 10-24-2022 blood-glucose meter,continuous (DEXCOM G6 ELECTRICIAN AIRCRAFT) misc Indications: Type 2 diabetes mellitus without complication, without long-term current use of insulin ([facility]) 1 unit yearly 1 each 0 10/24/2022 Active blood-glucose sensor (DEXCOM G6 SENSOR) device (4 sources) Start: 03-31-2023 blood-glucose sensor (DEXCOM G6 SENSOR) device Indications: Type 2 diabetes mellitus without complication, without long-term current use of insulin ([facility]) 1 Unit by miscellaneous route every 10 days. 3 each 5 03/31/2023 Active blood-glucose transmitter (DEXCOM G6 TRANSMITTER) device (4 sources) Start: 06-24-2023 blood-glucose transmitter (DEXCOM G6 TRANSMITTER) device Indications: Type 2 diabetes mellitus without complication, without long-term current use of insulin ([facility]) 1 UNIT BY MISCELLANEOUS ROUTE [...] Ordered calcium carbonate 1500 mg oral tablet (5 sources) Start: 11-06-2022 take 1 tablet by mouth twice daily calcium carbonate (OS-LARRY) 600 mg (1,500 mg) tablet TAKE ONE TABLET BY MOUTH TWICE A DAY FOR 30 DAYS 0 11/06/2022 Active take 1 tablet by mouth in the mo rning calcium carbonate 1500 (600 Ca) MG tablet Take 1,500 mg by mouth in the morning and 1,500 mg before bedtime. 0 Active carvedilol 25 mg oral tablet (20 sources) alpha-Adrenergic Laz, beta-Adrenergic Laz Start: 08-06-2022 End: 08-01-2023 take 1 tablet by mouth in the morning carvedilol (Coreg) 25 MG tablet Take 25 mg by mouth in the morning and 25 mg before bedtime. 0 01/03/2023 Active Start: 03-06-2022 take 1 tablet by colin th twice daily carvedilol 25 mg Tab 25 mg = 1 tab(s), Oral, BID, # 180 tab(s), Refills(s) 1, Pharmacy: [id number], 162, cm, 03/06/22 10:28:00 EDT, Height/Length [...] with meals. 378 g 1 06/06/2023 Active clomiPRAMINE hydrochloride 50 mg oral capsule (1 source) Tricyclic Antidepressant take 1 capsule by mouth once daily clomiPRAMINE (Anafranil) 50 MG capsule Take 50 mg by mouth 1 (one) time each day at the same time. 0 Active Continuous Blood Gluc Ditching Machine Operator (Dexcom G6 fudge candy maker) device (1 source) Start: 10-24-2022 Continuous Blood Gluc Ditching Machine Operator (Dexcom G6 fudge candy maker) device 1 UNIT YEARLY 0 10/24/2022 Active Continuous Blood Gluc Sensor (Dexcom G6 Sensor) misc (1 source) Start: 01-21-2023 Continuous Blood Gluc Sensor (Dexcom G6 Sensor) [facility] USE 1 UNIT DIRECTED AND CHANGE EVERY 10 DAYS 0 01/21/2023 Active diazePAM 2 mg oral tablet (3 sources) Benzodiazepine Start: 07-08-2023 End: 09-02-2023 take 1 tablet by mouth every eight hours as needed for anxiety diazePAM (VALIUM) 2 mg tablet Indications: Claustrophobia Take 1 tablet (2 mg total) by mouth every 8 (eight) hours as needed for anxiety. 1 tablet 0 07/08/2023 09/02/2023 Discontinued (Therapy completed) dicyclomine hydrochloride 20 mg oral tablet (8 sources) Anticholinergic Start: 06-14-2021 take 20 mg [...] Daily, # 30 cap(s), Refills(s) 5, Pharmacy: [id number], 163, cm, 07/05/23 15:45:00 EST, Height/Length Dosing, 81.9, kg, 07/05/23 15:49:00 EST, Weight Dosing Start Date: 07/05/23 Status: Ordered Start: 07-05-2023 take 1 capsule by mo [facility] every twenty-four hours dilTIAZem CD (CARDIZEM CD) [...] Active Start: 10-25-2021 take 1 capsule by mo uth every week ergocalciferol 50,000 intl units Cap 50,000 International_Unit = 1 cap(s), Oral, qWeek, Refills(s) 0, Prophylaxis Start Date: 10/25/21 Status: Ordered Start: 10-25-2021 take 1 capsule by mo uth every week ergocalciferol 50,000 intl units Cap 50,000 International_Unit = 1 cap(s), Oral, qWeek, Refills(s) 0, Prophylaxis Start Date: 10/25/21 Status: Ordered Start: 06-14-2021 take 55631 ug by colin every week Ergocalciferol (Vitamin D2) Active 91937 MCG PO every week June 14, 2021 [...] day(s), # 90 tab(s), Refills(s) 0, Pharmacy: [id number], 163, cm, 10/29/22 14:56:00 EDT, Height/Length Dosing, 77.3, kg, 10/29/22 14:56:00 EDT, Weight Dosing Start Date: 10/29/22 Stop Date: 01/27/23 Status: Ordered 1.5 ml fremanezumab-vfr m 150 mg/ml auto-injector (20 sources) Start: 02-09-2023 inject 1.5 mL by subcutaneous injection every 30 days Ajovy 225 MG/1.5ML auto-injector INJECT 1.5ML SUBCUTANEOUSLY EVERY 30 DAYS 0 02/09/2023 Active Start: 09-14-2022 Ajovy Refills( s) 0 Start [...] daily June 14, 2021 12:00am hydrOXYzine hydrochloride 10 mg oral tablet (20 sources) Antihistamine Start: 09-18-2023 End: 10-18-2023 take 1 tablet by mouth once hydrOXYzine HCl (Atarax) 10 MG tablet Indications: Allergic rhinitis due to animal hair and dander Take 1 tablet (10 mg) by mouth every 12 (twelve) hours if needed for itching 60 tablet 3 09/18/2023 10/18/2023 Active Start: 06-14-2021 take 50 mg by mouth [...] 10/22/2022 Active lidocaine 0.05 mg/mg medicated patch (6 sources) Antiarrhythmic, Amide Local Anesthetic Start: 07-22-2023 lidocaine (Lidoderm) 5 % patch Indications: Diabetic peripheral neuropathy (CMS/HCC) , Lumbar radiculopathy , Lumbosacral spondylosis without myelopathy , Neck pain Apply 2 patches over 12 hours topically in the morning. Remove & discard patch within 12 hours or as directed by .. 60 patch 11 07/22/2023 Active Start: 10-12-2022 Lidoderm 5% Pa tch 1 patch(es), Topical, Daily, 7 EA, Refill(s) 0, apply 12 hours on and 12 hours off daily Start Date: 10/12/22 Status: Ordered loperamide hydrochloride 2 mg oral capsule (20 sources) Opioid Agonist Start: 12-20-2022 take 1 capsule by mouth every twenty-four [...] day(s), # 120 cap(s), Refills(s) 0, Pharmacy: [id number], 163, cm, 10/29/22 14:56:00 EDT, Height/Length [...] stool, # 120 tab(s), Refills(s) 6, Pharmacy: [facility], 162, cm, 03/30/20 10:05:00 EDT, Height/Length Dosing, 74.2, kg, 03/30/20 10:05:00 EDT, Weight Dosing Start Date: 07/12/20 Status: Ordered meclizine hydrochloride 25 mg oral tablet (20 sources) Antiemetic Start: 07-02-2022 take 1 tablet by mouth three times daily as needed meclizine (Antivert) 25 MG tablet Take 25 mg by mouth 3 (three) times a day as needed. 0 07/02/2022 Active Start: 10-22-2018 take 25 mg by mouth four times daily as needed for dizziness meclizine 25 mg, Oral, QID, PRN Dizziness Start Date: 10/22/18 Status: Ordered take 1 tablet by colin th every twenty-four hours Meclizine HCl 25 MG 1 tablet as needed Orally Once a day Active metFORMIN hydrochloride 500 mg oral tablet (11 sources) Biguanide Start: 05-06-2023 take 1 tablet by mouth at mealtime metFORMIN (Glucophage) 500 MG tablet Take 500 mg by mouth in the morning. Take with meals. 0 05/06/2023 Active Start: 09-20-2022 take 1 tablet [...] Status: Ordered nabumetone 750 mg oral tablet (7 sources) Nonsteroidal Anti-inflammatory Drug Start: 09-17-2023 nabumetone [...] Start Date: 10/12/19 Status: Ordered nebulizer accessories [facility] [place] (4 sources) Start: 01-25-2023 nebulizer accessories [facility] [place] Indications: Chronic obstructive pulmonary disease, unspecified COPD type (CMS-HCC) 1 Tube by inhal. via small vol.nebulizer route every 6 (six) months. 1 each 1 01/25/2023 Active nebulizers [facility] [place] (4 sources) Start: 01-25-2023 nebulizers [facility] [place] Indications: Chronic obstructive pulmonary disease, unspecified COPD type (CMS-HCC) 1 Unit by miscellaneous route every 6 (six) months. 1 each 1 01/25/2023 Active nortriptyline 25 mg oral capsule (20 sources) Tricyclic Antidepressant Start: 09-20-2022 take 1 capsule by mouth three times daily nortriptyline (Pamelor) 25 MG capsule Take 1 capsule 3 times a day by oral route. 0 09/20/2022 Active Start: 06-14-2021 take 1 capsule by ga ut in the morning, then take 3 capsules [...] 0 Start Date: 07/10/21 Status: Ordered nystatin 699023 unt/ml topical cream (8 sources) Polyene Antifungal Start: 06-27-2023 End: 08-18-2023 apply 15 g topically twice daily nystatin (MYCOSTATIN) cream APPLY TO AFFECTED AREA VIA TOPICAL ROUTE TWICE A DAY 15 g 0 08/18/2023 Active Start: 06-18-2023 End: 08-23-2023 take 5 mL by mouth four times daily at bedtime nystatin (MYCOSTATIN) 100,000 unit/mL suspension Indications: Oral thrush TAKE 5ML FOUR TIMES A DAY IN AM, NOON, EVENING, AND AT BEDTIME FOR 7 DAYS 140 mL 1 08/18/2023 08/23/2023 Active nystatin 092075 unt/ml / triamcinolone acetonide 1 mg/ml topical cream (1 source) Polyene Antifungal, Corticosteroid Start: 05-08-2022 nystatin-triamcinolone (Mycolog II) cream APPLY 1 APPLICATION TOPICALLY IN THE MORNING AND 1 APPLICATION AT NOON AND 1 APPLICATION IN THE EVENING AND 1 APPLICATION BEFORE BEDTIME. 0 05/08/2022 Active omeprazole 40 mg delayed release oral capsule (20 sources) Proton Pump Inhibitor Start: 06-22-2015 take 1 capsule by mouth once daily omeprazole (PriLOSEC) [address] capsule Take 1 capsule every day by oral route. 0 08/31/2022 Active take 1 capsule by mouth once genoveva ly PriLOSEC 40 MG 1 capsule Orally Once a day Active ondansetron 4 mg disintegrating oral tablet (20 sources) Serotonin-3 Receptor Antagonist Start: 09-17-2023 ondansetron 4 mg Dis Tab Refills(s) 0 Start Date: 09/17/23 Status: Ordered Start: 09-09-2023 take 1 tablet by colin th every eight hours as needed for nausea [...] as needed for nausea and vomiting ondansetron (Zofran) 4 MG tablet TAKE 1 TABLET BY MOUTH EVERY 12 HOURS FOR 10 DAYS NEEDED FOR NAUSEA AND VOMITING 0 10/29/2022 Active Start: 06-14-2021 take 4 mg by mouth e very six hours Ondansetron Active 4 MG PO Q6H June 14, 2021 12:00am Zofran Active Oxygen - for Home (20 sources) Start: 10-25-2021 Oxygen - for Home 3 L/min, Nasal Cannula, Daily, Refill(s) 0, Oxygen - Continuous or Nocturnal Diagnosis: Portable 02 for physician visits, oxygen conservation Start Date: 10/25/21 Status: Ordered Oxygen 2 liters (6 sources) Oxygen 2 liters 2.5 liters continuous [...] Date: 09/20/22 Status: Ordered polyethylene glycol 3350 250107 mg / potassium chloride 1480 mg / sodium bicarbonate 5720 mg / sodium chloride 80984 mg powder for oral solution (11 sources) [...] vomiting, # 90 tab(s), Refills(s) 0, Pharmacy: [facility], 162, cm, 05/15/22 13:20:00 EDT, Height/Length Dosing, 79, kg, 05/15/22 13:20:00 EDT, Weight Dosing Start Date: 09/05/22 Status: Ordered Start: 04-04-2020 take 1 tablet by colin th three times daily as needed for nausea promethazine 25 mg Tab 25 mg, Oral, TID, PRN as needed for nausea/vomiting, # 90 tab(s), Refills(s) 2, Pharmacy: [facility], 162, cm, 03/30/20 10:05:00 EDT, Height/Length Dosing, 74.2, kg, 03/30/20 10:05:00 EDT, Weight Dosing Start Date: 04/04/20 Status: Ordered rifAXIMin 550 mg oral tablet (8 sources) Rifamycin Antibacterial Start: 06-14-2021 take 1 tablet by mouth three times daily Rifaximin (Xifaxan) 550 mg tablet Active 550 MG PO Three times daily June 14, 2021 12:00am take 1 tablet by mouth every twe lve hours Xifaxan 550 MG 1 tablet Orally Twice a day Active rimegepant 75 mg disintegrating oral tablet (12 sources) Start: 06-14-2021 take 1 tablet by [...] Start: 09-04-2021 take 1 tablet by colin th once daily Vesicare 10 mg Tab 10 [...] Status: Ordered thiamine 100 mg oral tablet (13 sources) Start: 06-14-2021 take 1 tablet by mouth in the morning Thiamine Mononitrate 100 MG tablet Take 1 tablet by mouth in the morning. 0 07/31/2023 Active tiZANidine 4 mg oral tablet (8 sources) Central alpha-2 Adrenergic Agonist Start: 08-05-2023 [...] 2021 12:00am December 07, 2021 10:36am traMADol hydrochloride 50 mg oral tablet (3 sources) Opioid Agonist Start: 09-20-2023 End: 09-27-2023 take 1 tablet by mouth three times daily as needed for pain traMADol (Ultram) 50 MG tablet Indications: Chronic bilateral low back pain with bilateral sciatica , Diabetic peripheral neuropathy (CMS/HCC) , Lumbar radiculopathy Take 1 tablet (50 mg) by mouth 3 (three) times a day as needed for severe pain for up to 7 days 21 tablet 0 09/20/2023 09/20/2023 Discontinued (Reorder) Start: 09-17-2023 TRAMADOL HYDRO CHLORIDE TRAMADOL HYDROCHLORIDE Start Date: 09/17/23 Status: Ordered [...] sources) Start: 10-25-2021 take 1 tablet by colin th once daily Vitamin B1 100 mg Tab 100 mg = 1 tab(s), Oral, Daily, Refills(s) 0, Prophylaxis Start Date: 10/25/21 Status: Ordered Vitamin D (6 sources) Vitamin D 50,000 U Active Completed/Discontinued [...] Classification Problem Date Documented Da te Episodic/Chronic Acquired foot deformities (5 sources) Hammer toe; Translations: [Other hammer toe(s) [...] disorder, unspecified type] Onset: 2 02-14-2015 Chronic Chronic obstructive pulmonary disease and bronchiectasis (20 sources) Chronic obstructive lung disease; Translations: [Chronic obstructive pulmonary disease, unspecified] Onset: 4 06-16-2015 Chronic Diabetes mellitus with complications (6 sources) Diabetic peripheral neuropathy; Translations: [Type 2 diabetes mellitus with diabetic polyneuropathy] Onset: 2 06-06-2023 Chronic Diabetes mellitus without complication (20 sources) Diabetes mellitus; Translations: [Type 2 diabetes mellitus] Onset: 2 04-28-2018 Chronic Digestive congenital anomalies (20 sources) Finding of esophagus 05-09-2022 Chronic Diseases of white blood cells (5 sources) Leukocytosis; Translations: [Elevated white blood cell count, unspecified] Onset: 3 11-12-2022 Chronic Disorders of lipid metabolism (20 sources) Hypercholesterolemia; Translations: [Hyperlipidemia] Onset: 4 09-11-2018 Chronic E Codes: Fall (1 source) Unspecified fall, initial encounter; Translations: [UNSPECIFIED FALL INITIAL ENCOUNTER] Onset: 3 Episodic Esophageal disorders (20 sources) Gastroesophageal reflux disease; Translations: [Diffuse spasm of esophagus] Onset: 4 01-23-2020 Chronic Essential hypertension (20 sources) Benign hypertension; Translations: [Hypertensive disorder] Onset: 2 09-11-2018 Chronic Gastroduodenal ulcer (except hemorrhage) (20 sources) Gastric ulcer; Translations: [Gastric ulcer, unspecified as acute or chronic, without hemorrhage or perforation] Onset: 3 Chronic Genitourinary symptoms and ill-defined conditions (20 sources) Incontinence; Translations: [Urge incontinence of urine] Onset: 2 04-21-2021 Chronic Headache; including migraine (20 sources) Migraine without aura; Translations: [Migraine] Onset: 2 09-11-2018 Chronic Heart valve disorders (20 sources) Mitral valve prolapse; Translations: [Nonrheumatic mitral (valve) prolapse] Onset: 4 06-16-2015 Chronic Mood disorders (20 sources) Bipolar disorder; Translations: [Depressive disorder] Onset: 1 06-16-2015 Chronic Mycoses (1 source) Candidiasis of mouth; Translations: [Candidal stomatitis] 08-16-2023 Episodic Osteoarthritis (20 sources) Degenerative joint disease involving multiple joints; Translations: [Osteoarthritis] Onset: 4 09-11-2018 Chronic Osteoporosis (10 sources) Osteoporosis; Translations: [Age-related osteoporosis without current pathological fracture] Onset: 3 11-16-2022 Chronic Other acquired deformities (5 sources) Contracture of joint of right ankle; Translations: [Contracture, right ankle] Onset: 3 06-06-2023 Chronic Other aftercare (1 source) Other terminal gauger (current) drug therapy; Translations: [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] Onset: 3 Episodic Other aftercare (4 sources) Encounter for change or removal of surgical wound dressing; Translations: [ENC CHG/REMOVAL SURG WOUND DRSG] Onset: 3 Episodic Other and ill-defined heart disease (6 sources) Diastolic dysfunction; Translations: [Heart disease, unspecified] Chronic Other and ill-defined heart disease (3 sources) Heart disease, unspecified Chronic Other bone disease and musculoskeletal deformities (5 sources) Osteochondritis dissecans of right ankle; Translations: [Osteochondritis dissecans, right ankle and joints of right foot] Onset: 2 05-21-2022 Chronic Other connective tissue disease (3 sources) Pain in left foot; Translations: [PAIN IN LEFT FOOT] Onset: 3 Episodic Other connective tissue disease (1 source) Myalgia, other site; Translations: [Myalgia, other site] Onset: 3 Episodic Other diseases of bladder and urethra (1 source) Detrusor overactivity; Translations: [Overactive bladder] Onset: 4 Chronic Other diseases of bladder and urethra (1 source) Overactive bladder 09-17-2023 Chronic Other gastrointestinal disorders (20 sources) Irritable bowel syndrome 08-17-2015 Chronic Other gastrointestinal disorders (20 sources) Irritable bowel syndrome with diarrhea; Translations: [Irritable bowel syndrome with diarrhea] Onset: 2 Chronic Other gastrointestinal disorders (20 sources) Alteration in bowel elimination 11-07-2021 Episodic Other gastrointestinal disorders (2 sources) Abnormal feces; Translations: [Other fecal abnormalities] Onset: 3 Episodic Other gastrointestinal disorders (2 sources) Incontinence of feces; Translations: [Full incontinence of feces] Onset: 4 Episodic Other hereditary and degenerative nervous system conditions (5 sources) Restless legs; Translations: [Restless legs syndrome] Onset: 3 06-06-2023 Chronic Other lower respiratory disease (4 sources) Dyspnea [...] Onset: 2 Chronic Other nervous system disorders (5 sources) Difficulty walking; Translations: [Difficulty in walking, not elsewhere classified] Onset: 2 05-21-2022 Chronic Other nervous system disorders (5 sources) Neuropathy; Translations: [Polyneuropathy, unspecified] Onset: 2 05-21-2022 Chronic Other nervous system disorders (5 sources) Downey neuroma of bilateral feet; Translations: [Lesion of plantar nerve, bilateral lower limbs] Onset: 3 11-12-2022 Chronic Other nervous system disorders (5 sources) Parkinsonism due to drug; Translations: [Other drug induced secondary parkinsonism] Onset: 3 06-06-2023 Chronic Other nervous system disorders (5 sources) Bilateral entrapment of ulnar nerves at elbow; Translations: [Lesion of ulnar nerve, bilateral upper limbs] Onset: 3 06-20-2023 Chronic Other nervous system disorders (1 source) Lesion of ulnar nerve; Translations: [Lesion of ulnar nerve, bilateral upper limbs] Onset: 3 07-08-2023 Chronic Other nervous system disorders (5 sources) Abnormal gait; Translations: [Unspecified abnormalities of gait and mobility] Onset: 3 07-01-2023 Episodic Other nutritional; endocrine; and metabolic disorders (20 sources) Body mass index 30+ - obesity; Translations: [Obesity, unspecified] Onset: 2 04-09-2022 Chronic Other upper respiratory disease (5 sources) Allergic rhinitis; Translations: [Allergic rhinitis, unspecified] [...] Chronic pain 06-16-2015 Episodic Residual codes; unclassified (6 sources) Tobacco dependence syndrome; Translations: [Tobacco use] Episodic Residual codes; unclassified (3 sources) Tobacco use Episodic Residual codes; unclassified (3 sources) Family history of malignant neoplasm of digestive organ; Translations: [Family history of malignant neoplasm of digestive organs] Onset: 3 Episodic Residual codes; unclassified (1 source) Acquired absence of both cervix and uterus; Translations: [ACQUIRED ABSENCE BOTH CERVIX AND UTERUS] Onset: 3 Episodic Spondylosis; intervertebral disc disorders; other back problems (17 sources) Spondylosis without myelopathy or radiculopathy, lumbosacral [...] te Episodic/Chronic Abdominal pain (20 sources) Flank pain; Translations: [Unspecified abdominal pain] Onset: 3 04-09-2022 Episodic Calculus of urinary tract (20 sources) History of calculus of kidney; Translations: [Personal history of urinary calculi] Onset: 4 10-25-2021 Episodic Cardiac dysrhythmias (1 source) Tachycardia, unspecified; Translations: [TACHYCARDIA UNSPECIFIED] Onset: 2 Episodic Conditions associated with dizziness or vertigo (20 sources) Dizziness; Translations: [Vertigo] Onset: 2 08-17-2015 Episodic Diseases of mouth; excluding dental (10 sources) Hypertrophy of parotid gland; Translations: [Hypertrophy of salivary gland] Onset: 1 12-14-2020 Episodic Disorders of teeth and jaw (20 sources) Arthralgia of temporomandibular joint; Translations: [Arthralgia of temporomandibular joint, unspecified side] Onset: 3 04-28-2018 Episodic Fluid and electrolyte disorders (5 sources) Hyponatremia; Translations: [Hypo-osmolality and hyponatremia] Onset: 3 11-12-2022 Episodic Fracture of upper limb (2 sources) Displaced fracture of coracoid process, right shoulder, subsequent encounter for fracture with nonunion; Translations: [3-part fracture of surgical neck of right humerus, subsequent encounter for fracture with routine healing] Onset: 2 Episodic Gastritis and duodenitis (20 sources) Gastritis; Translations: [Gastritis, unspecified, without bleeding] Onset: 3 06-16-2015 Episodic Genitourinary symptoms and ill-defined conditions (20 sources) Dysuria; Translations: [Incomplete emptying of bladder] Onset: 2 09-04-2021 Episodic Headache; including migraine (5 sources) Headache; Translations: [Headache] Onset: 3 04-12-2020 Episodic Hemorrhoids (11 sources) Hemorrhoids; Translations: [Unspecified hemorrhoids] Onset: 3 01-29-2023 Episodic Joint disorders and dislocations; trauma-related (1 source) Other tear of medial meniscus, current injury, right knee, subsequent encounter; Translations: [OTH TEAR MED MENSC CURR RT KNEE SUB] Onset: 2 Episodic Mood disorders (4 sources) Mood disorders Onset: 3 06-20-2023 Nausea and vomiting (20 sources) Vomiting; Translations: [Nausea and vomiting] Onset: 3 11-07-2021 Episodic Nonmalignant breast conditions (4 sources) Unspecified lump in the left breast, lower outer quadrant; Translations: [UNS LUMP IN LT BREAST LW OUTR QUAD] Onset: 3 Episodic Other acquired deformities (5 sources) Deformity of metatarsal; Translations: [Unspecified acquired deformity of unspecified lower leg] Onset: 3 06-06-2023 Episodic Other aftercare (6 sources) Patient encounter status; Translations: [Encounter for therapeutic drug level monitoring] Onset: 3 10-22-2022 Episodic Other and unspecified benign neoplasm (11 sources) Polyp of colon; Translations: [Polyp of [...] Episodic Other bone disease and musculoskeletal deformities (5 sources) Osteopenia; Translations: [Other specified disorders of bone density and structure, unspecified thigh] Onset: 3 06-06-2023 Episodic Other connective tissue disease (20 sources) Fibromyositis; Translations: [Fibromyalgia] Onset: 4 02-14-2015 Episodic Other connective tissue disease (9 sources) Fibromyalgia; Translations: [Fibromyalgia] Onset: 0 04-12-2020 Episodic Other connective tissue disease (2 sources) Fibromyalgia; Translations: [FIBROMYALGIA] Onset: 2 Episodic Other connective tissue disease (4 sources) Impingement syndrome of right shoulder; Translations: [IMPINGEMENT SYNDROME RIGHT SHOULDER] Onset: 2 Episodic Other connective tissue disease (5 sources) H/O: musculoskeletal disease; Translations: [Personal history of other diseases of the musculoskeletal system and connective tissue] Onset: 5 04-12-2020 Episodic Other connective tissue disease (5 sources) Pain in bilateral legs; Translations: [Pain in right leg] Onset: 2 04-12-2020 Episodic Other connective tissue disease (5 sources) Pain in limb; Translations: [Pain in unspecified limb] Onset: 1 04-12-2020 Episodic Other connective tissue disease (5 sources) Bicipital tenosynovitis; Translations: [Bicipital tendinitis, unspecified shoulder] Onset: 4 05-21-2022 Episodic Other connective tissue disease (5 sources) Disorder of bursa of shoulder region; Translations: [Bursopathy, unspecified] Onset: 4 05-21-2022 Episodic Other connective tissue disease (5 sources) Bilateral plantar fasciitis; Translations: [Plantar fascial fibromatosis] Onset: 3 11-12-2022 Episodic Other connective tissue disease (5 sources) Spasm of cervical paraspinous muscle; Translations: [Other muscle spasm] Onset: 3 06-06-2023 Episodic Other connective tissue disease (4 sources) Myofascial pain syndrome; Translations: [Myalgia, other site] Onset: 4 07-01-2023 Episodic Other diseases of bladder and urethra (20 sources) Urethral stricture; Translations: [Unspecified urethral stricture, male, unspecified site] Onset: 2 04-21-2021 Episodic Other diseases of veins and lymphatics (5 sources) Peripheral venous insufficiency; Translations: [Venous insufficiency (chronic) (peripheral)] Onset: 2 05-21-2022 Episodic Other gastrointestinal disorders (20 sources) Dysphagia; Translations: [Dysphagia, unspecified] Onset: 2 06-16-2021 Episodic Other gastrointestinal disorders (11 sources) Altered bowel function; Translations: [Change in bowel habit] Onset: 2 Episodic Other gastrointestinal disorders (20 sources) Loose stool; Translations: [Other fecal abnormalities] Onset: 3 09-14-2022 Episodic Other gastrointestinal disorders (4 sources) Diarrhea, unspecified; Translations: [DIARRHEA UNSPECIFIED] Onset: 2 Episodic Other gastrointestinal disorders (5 sources) History of gastroesophageal reflux disease; Translations: [Personal history of other diseases of the digestive system] Onset: 5 04-12-2020 Episodic Other injuries and conditions due to external causes (20 sources) Foreign body in stomach; Translations: [Foreign body in stomach, initial encounter] Onset: 3 09-14-2022 Episodic Other injuries and conditions due to external causes (14 sources) Compression injury of nerve; Translations: [Other injury of unspecified body region, initial encounter] Onset: 3 11-16-2022 Episodic Comment on above: pinched nerve in nathaly k also Other injuries and conditions due to external causes (5 sources) Foreign body in stomach, initial encounter; Translations: [Foreign body in stomach] Onset: 2 05-21-2022 Episodic Other lower respiratory disease (5 sources) History of chronic obstructive airway disease; [...] non-traumatic joint disorders (5 sources) Pain in left shoulder; Translations: [Pain in joint, shoulder region] Onset: 4 04-12-2020 Episodic Other nutritional; endocrine; and metabolic disorders (5 sources) Overweight; Translations: [Overweight] Onset: 3 01-24-2023 Episodic Residual codes; unclassified (16 sources) Family history of colorectal cancer; Translations: [Family history of malignant neoplasm of digestive organs] Onset: 3 09-14-2022 Episodic Residual codes; unclassified (10 sources) Menopause present; Translations: [Asymptomatic menopausal state] Onset: 3 11-16-2022 Episodic Residual codes; unclassified (4 sources) Asymptomatic menopausal state; Translations: [ASYMPTOMATIC MENOPAUSAL STATE] Onset: 2 Episodic Screening and history of mental health and substance abuse codes (16 sources) H/O: anxiety state; Translations: [Personal history of other mental and behavioral disorders] Onset: 5 04-12-2020 Episodic Sprains and strains (8 sources) Sprain of unspecified ligament of left ankle, initial encounter; Translations: [Sprain of unspecified site of left knee, initial encounter] Onset: 2 04-04-2023 Episodic Substance-related disorders (5 sources) Continuous opioid dependence; Translations: [Opioid use, unspecified, uncomplicated] Onset: 5 Resolved: 3 10-22-2022 Episodic Superficial injury; contusion (5 sources) Contusion of sacral region; Translations: [Contusion [...] Reference Range Facil ity Screenson 09-18-2023 Screens [id number] FF Normal [facility] Ambulatory Visit Summaryon 0 09-17-2023 Ambulatory Visit Summary KETURAH HERRERA :1970 Visit Date:09/17/2023 Ambulatory Visit Instructions Your Diagnosis OAB (overactive bladder) Mixed incontinence urge and stress Gross hematuria Kidney stones History of kidney stones History of UTI Fecal incontinence Your Care Team Attending Physician - SHERI JIMENES PA-C Primary Care Physician - ROBERT GIRON DO This Is Your Medications List [facility] [place] Prescription (TRAMADOL HYDROCHLORIDE) Oxygen (Oxygen - for [...] SHERI JIMENES PA-C Where: [facility] Patient Educationon 09-17-19 24 Patient Education [...] these instructions at home: Medicines ? Take [id number] and prescription medicines only as told by [...] the blood stops without treatment. ? Take lxas-ufu-oqnegvu and prescription medicines only as told by your health care provider. ? Drink enough fluid to keep your urine pale yellow. This information is not intended to replace advice given to you by your health care provider. Make sure you discuss any questions you have with your health care provider. Document Revised: 04/05/2021 Document Reviewed: 04/05/2021 [employer] Patient Education ? 2022 [employer] [facility] Retail - Clinical Noteon Retail - Clinical Note [id number]#1.00TIF F [facility] Retail - Clinical Note [id number]#1.00TIF F [facility] Urology Office/Clinic Noteon 09-17-2023 Urology Office/Clinic Note [...] to her (unsure if refill ran out?) [facility] [place] CC: flank pain and trouble [...] is 6.2. -Begin [facility]care. [facility] f/u 3 mos to ensure working well. -Supply order provided for pads/incontinence supplies Ordered: E&M of Est. Patient Moderate 30-39 Min 96951 Urnls Dip Stick Auto w/o Microscopy POC 86032 2. Fecal incontinence (R15.9: Full incontinence of feces) Hx of IBS. Continues having complications with diarrhea and fecal incontinence follows with PCP used to follow with Dr. Bela CAZARES but he retired Ordered: E&M of Est. Patient Moderate 30-39 Min 66822 3. OAB (overactive bladder) (N32.81: Overactive bladder) see #1 Ordered: E&M of Est. Patient Moderate 30-39 Min 29009 4. Gross hematuria (R31.0: Gross hematuria) S/p [...] E&M of Est. Patient Moderate 30-39 Min 21841 5. Kidney stones (N20.0: Calculus of kidney) S/p lithotripsy 06/06/15. 24hr urine 03/08/20 done for unrelated reason (ordered by external provider): Total volume 2,525mL. CT AP wo con 10/20/22 [facility] [place] A few tiny nonobstructing R renal [...] E&M of Est. Patient Moderate 30-39 Min 29865 Orders: solifenacin, 10 mg = 1 tab(s), Oral, Daily, # 90 tab(s), Refills(s) 3, Pharmacy: [facility], 163, cm, 09/17/23 8:25:00 EST, Height/Length Dosing, 81, kg, 09/17/23 8:25:00 EST, Weight Dosing Follow-up With When Contact Information SHERI JIMENES PA-C, URL [address] [facility] [place] [address] [phone] Additional Instructions: 3 mos (restart med) Patient Education Hematuria, Adult Documentation record (more content not included)... [facility] Comment on above: Result Comment: Elec tronically Signed By: SHERI JIMENES PA-C\.br\Date and Time Signed: 09/17/23 09:07 EST\.br\Electronically Co-Signed By: Deisy Simon\.br\Date and Time Co-Signed: 09/17/23 09:00 EST Consent for Treatmenton Consent for Treatment [id number]#1.00TIF F [facility] Heart and Vascular Office/Cl inic Noteon [...] palpitations and chest pain and went to [place] for evaluation. He then saw Cady on [...] disease) Hemorrhoids (more content not included)... [facility] Comment on above: Result Comment: Elec tronically Signed By: WILL WALSH, Elliott J\.br\Date and Time Signed: 07/25/23 10:57 EST Physician Orderon 07-25-2023 Physician Order [id number]#1.00TI FF [facility] Heart and Vascular Office/Cl inic Noteon [...] cardiac clearance. Apparently she had gone to [place] ER for SVT. She was ordered an event monitor and echocardiogram. Insurance has denied her echocardiogram. She had essentially normal echo in 2020. She had a cath with Dr. Beltran in 2019 with normal coronary arteries. She had her foot surgery without event. Here today now for another [place] ER visit. She had chest pain and [...] 4. Normal estimated pulmonary artery pressure. [2] [facility] 03/03/2020 CONCLUSIONS: 1. Essentially normal coronary arteriograms. 2. Noncardiac chest pain. [3] Assessment/Plan 1. Palpitations (R00.2: Palpitations) Will add diltiazem 120 mg daily to her carvedilol 25 mg twice daily. We will request records from [place] ER-need to review EKG that had questionable atrial flutter if this is the case she would need to be anticoagulated. She will follow-up with Dr. Solis as previously scheduled to review results of event monitor. Portions of this record may have been created with voice recognition artificial intelligence software, specifically [employer], [address] and or sourceasy. Substitutions may have occurred due to the inherent limitations of voice recognition and artificial intelligence software. Follow-up With When Contact Information WILL WALSH, [place] [address] [phone] Additional Instructions: Follow up post event Problem [...] Excision of Downey's (more content not included)... [facility] Comment on above: Result Comment: Elec tronically Signed By: FIFI IZAGUIRRE, Cady Amato\.br\Date and Time Signed: 07/18/23 14:27 EST Outside Recordson 07-08-2023 Outside Records [id number]#1.00TI [facility] Physician Orderon 07-05-2023 Physician Order [id number]#1.00TIF F [facility] Physician Orderon 06-24-2023 Physician Order [id number]#1.00TI [facility] Consent for Treatmenton 05-20 Consent for Treatment [id number]#1.00TIF F [facility] Retail - Clinical Noteon Retail - Clinical Note [id number]#1.00TIF F [facility] Insurance Correspondenceon Insurance Correspondence [id number]#1.00TI FF [facility] Outside Recordson 05-24-2023 Outside Records [id number]#1.00TI FF [facility] Outside Records [id number]#1.00TI FF [facility] Heart and Vascular Office/Cl inic Noteon 05-21-2023 Heart and Vascular Office/Clinic Note Chief Complaint [place] ED F/U- Tachycardia History of Present Illness [...] for foot surgery. Unfortunately, she presented to [place] ER on 05/19/2023 with complaints of palpitations. [...] intact- no rash or concerning lesions Procedure [facility]- Dr Fragoso 03/03/20 CONCLUSIONS: 1. Essentially normal coronary arteriograms. 2. Noncardiac chest pain. [1] Cardiac Diagnostics (06/07/2021 14:15 EDT Echo Transthoracic Complete) SUMMARY/CONCLUSION: 1. Normal left ventricle and right ventricle. 2. Borderline impaired diastolic relaxation. 3. No significant valve disease. 4. Normal estimated pulmonary artery pressure. [2] [1] Assessment/Plan 1. Sinus tachycardia (R00.0: Tachycardia, unspecified) In [place] ER for palpitation, noted to be sinus [...] with voice recognition artificial intelligence software, specifically [employer], [address] and or [employer]asy. Substitutions may have occurred due to the inherent limitations of voice recognition and artificial intelligence software. Follow-up With When Contact Information WILL WALSH, Elliott Grewal Within [address] [place] [phone] [phone] Additional Instructions: Problem List/Past Medical History Ongoing [...] (03/14/2020), Catheter (more content not included)... [facility] Comment on above: Result Comment: Elec tronically Signed By: Cady CALIX CNP.rosi\Date and Time Signed: 05/21/23 12:56 EDT Consent for Treatmenton Consent for Treatment [id number]#1.00CD: 127 [facility] Physician Orderon 05-20-2023 Physician Order [id number]#1.00CD :127 [facility] Physician Orderon 05-17-2023 Physician Order Confirmed with Ana Rosa olivas @ [facility] that fax was received [id number]#1.00CD :127 [facility] Consent for Treatmenton 04-20 Consent for Treatment [id number]#1.00CD: 127 [facility] Heart and Vascular Office/Cl inic Noteon [...] py ( (more content not included)... [facility] Comment on above: Result Comment: Elec tronically Signed By: WILL WALSH, Elliott Grewal\.rosi\Date and Time Signed: 05/16/23 10:46 EDT Physician Orderon 05-16-2023 Physician Order [id number]#1.00CD :127 [facility] CT lung screeningon 04-03-20 CT lung screening [facility] Main [place] [id number] CT Scan Report Signed Patient: Keturah Herrera MR#: [id number] [id number] : 1970 Acct:[id number] Age/Sex: 52 / F ADM Date: 04/03/23 Loc: [facility] Room: Type: [facility] Attending Dr: CARRILLO Boyd APRN Copies to: [...] Allison Castaneda M.D.04/03/2023 2:31 PM Dictation Location: [place] [address] Transcribed By: [facility] 04/03/23 1431 Dictated By: Allison Castaneda MD 04/03/23 1423 Signed By: 04/03/23 1431 [facility]ers - From: Inessa Grajeda CNP To: Shalonda Singh; Sent: 01/29/2023 12:17:11 EDT Show up: 01/29/2023 12:18:00 EDT Subject: Ambulatory Reminder Reminder/Recall Colonoscopy in 2027. 01/18/[address] cramer From: Shalonda Singh To: [facility] - Reminders/Recalls; Sent: 01/30/2023 09:24:18 EDT ! Show up: 12/18/2027 09:24:00 EDT Due Date/Time: 01/18/2028 09:24:00 EDT [facility] Ambulatory Visit Summaryon 0 01-29-2023 Ambulatory Visit [...] 225 m (more content not included)... [facility] Gastroenterology Office/Clin ic Noteon 01-29-2023 Gastroenterology [...] in 5 (more content not included)... [facility] Comment on above: Result Comment: Elec tronically Signed By: Nicci IZAGUIRRE, Inessa Jerome\.br\Date and Time Signed: 01/29/23 12:21 EDT Patient Educationon 01-30-20 Patient Education High-Fiber Diet Fiber, also called [...] serving. ? Talk with a diet and equal opportunity specialist (dietitian) if you have questions about specific [...] Bulgur wheat. Millet. Quinoa. Bran muffins. Popcorn. [place] wafer crackers. Meats and other proteins [place], kidney, and georges beans. Soybeans. Split peas. [...] Cream cheese. Sour cream. Fats and oils [place]. Beverages Soft drinks. Other foods Cakes and [...] 08/05/2006 Document Revised: 06/09/2018 Document Reviewed: 06/09/2018 [employer] Patient Education ? 2019 [employer]. Gastroenterology H (more content not included)... [facility] Postoperative Documentson Postoperative Documents [id number]#1.00CD :127 [facility] Consenton 01-21-2023 Consent [id number]#1.00CD: 127 [facility] Discharge Instructionson Discharge Instructions [id number]#1.00CD: 127 [facility] IntraOperative Documentson 0 01-21-2023 IntraOperative Documents [id number]#1.00CD: 127 [facility] Progress Note-Physicianon Progress Note-Physician Patient: KETURAH HERRERA Age: 52 years Sex: Female : 1970 Associated Diagnoses: None Author: GhafMD johns Ahmad F Postoperative Information Postoperative disposition: Postoperative disposition: To PACU. Optimetrix number: Optimetrix number [id number]. Anesthetic utilized: General. Health Status Allergies: Allergic [...] meets criteria ( To home ). [facility] Comment on above: Result Comment: Elec tronically Signed By: MD Varela Ahmad F\.br\Date and Time Signed: 01/18/23 14:09 EDT Progress Note-Physician Patient: KETURAH HERRERA Age: 52 years Sex: Female : 1970 Associated Diagnoses: None Author: MD Nichole, Patrick Keller Preoperative Information Time patient last ate or [...] stool, # 120 tab(s), Refills(s) 6, Pharmacy: [facility], 162, cm, 03/30/20 10:05:00 EDT, Height/Length Dosing, 74.2, kg, 03/30/20 10:05:00 EDT, Weight Dosing Pepcid 20 mg Tab: 20 mg = 1 tab(s), Oral, Once a day (at bedtime), X 90 day(s), # 90 tab(s), Refills(s) 0, Pharmacy: [facility], 163, cm, 10/29/22 14:56:00 EDT, Height/Length Dosing, 77.3, kg, 10/29/22 14:56:00 EDT, Weight Dosing Vesicare 10 mg Tab: 10 mg = 1 tab(s), Oral, Daily, # 30 tab(s), Refills(s) 5, Pharmacy: [facility], 163, cm, 04/09/22 14:41:00 EDT, Height/Length Dosing, 80, kg, 04/09/22 14:41:00 EDT, Weight Dosing carvedilol 25 mg Tab: 25 mg = 1 tab(s), Oral, BID, X 90 day(s), # 180 tab(s), Refills(s) 3, Pharmacy: [facility], 162, cm, 05/15/22 13:20:00 EDT, Height/Length [...] list: All Problems Anxiety / SNOMED CT 81271257 / Confirmed Bipolar disorder / SNOMED CT 78669947 / Confirmed BMI 30.0-30.9,adult / SNOMED CT 547688549 / Confirmed Change in bowel habits / SNOMED CT 986167634 / Confirmed Chronic migraine / SNOMED CT 45073456 / Confirmed Chronic pain / SNOMED CT 388848307 / Confirmed COPD (chronic obstructive pulmonary disease) / SNOMED CT 32725212 / Confirmed Depression / SNOMED CT 44988389 / Confirmed Diabetes / SNOMED CT 998899212 / Confirmed Dizziness / SNOMED CT 3638937180 / Confirmed Dysuria / SNOMED CT 16113294 / Confirmed Esophageal spasm / SNOMED CT 465173793 / Confirmed Family history of colorectal cancer / SNOMED CT 0608074781 (more content not included)... [facility] Comment on above: Result Comment: Elec tronically Signed By: MD iNchole, Patrick Keller\.br\Date and Time Signed: 01/18/23 14:08 EDT Consent for Treatmenton Consent for Treatment [id number]#1.00CD: 127 [facility] Discharge Instructionson Discharge Instructions KETURAH HERRERA DOB:1970 Visit Date:01/17/2023 Inpatient Discharge Instructions Your Care [...] 24 hours Discharge Diet(s) Regular Pharmacy Information [facility] Discharge Instructions Discharge Instructions Previously Scheduled Follow-Up Appointments Saturday 1:20 PM EDT With: SHERI JIMENES PA-C Where: [facility] Normal [address] [address]- \.br\ New Follow Up Appointments after Discharge\.br\ Follow Up with BELA WALSH, DHAVAL Poole, MED When: \.br\ Comments:\.br\ Office will call to schedule follow up appointment\.br\ Where:\.br\ [address]\.br\ [place] [address]\.br\ \.br\ Medications\.br\ What How Much When Why [...] discomfort that is severe or gets [facility] Comment on above: Result Comment: Elec [...] Small nonbleeding internal hemorrhoids Images Procedure images: Rec_hd_video_ [id number].jpg Rec_hd_video__ [id number].jpg Rec_hd_video_ [id number]_[id number].jpg Rec_hd_video_ R67_65_[id number].jpg Rec_hd_video_2022__ [id number].jpg . Post-Procedure Complications: none. Estimated blood loss: [...] Return to activities:: After 24 hours. [facility] Comment on above: Result Comment: Elec tronically Signed By: Zulema CRAMER MD\.br\Date and Time Signed: 01/17/23 09:42 EDT Other Comment: Elba augustin Attachment - attachment storage system not supported [id number] Can be viewed in source systemMissing Attachment - attachment storage system not supported [id number] Can be viewed in source systemMissing Attachment - attachment storage system not supported 8340736 Can be viewed in source systemMissing Attachment - attachment storage system not supported 4993580 Can be viewed in source systemMissing Attachment - attachment storage system not supported [id number] Can be viewed in source system Main OR Intraoperative Recor don 01-17-2023 Main OR Intraoperative Record IntraOp Document Type FT Summary Primary Physician: Zulema CRAMER MD Finalized Date/Time: 01/17/23 12:22:14 Pt. Name: KETURAH HERRERA/Sex: 1970 Female Med Rec #: [id number] Physician: Zulema CRAMER MD Financial #: [id number] Pt. Type: O Room/Bed: Endo 10/17 Admit/Disch: [...] 1 Entry 2 Entry 3 Case Attendee Ye Porras CRNA RN, Goldie Chan Role Performed MEDICAL EDITOR Production Floater - Primary Scrub - Primary Time In 01/17/23 09:23:00 01/17/23 09:23:00 01/17/23 09:23:00 Time Out 01/17/23 09:38:00 01/17/23 09:38:00 01/17/23 09:38:00 Procedure COLONOSCOPY(.) COLONOSCOPY(.) COLONOSCOPY(.) Comments Dr. Varela supervising case Last Modified By: Efe LAZO, Andrés Wilks RN, Andrés Wilks RN, Andrés Kaminski 01/17/23 09:38:42 01/17/23 09:38:42 01/17/23 09:38:42 Entry 4 Entry 5 Case Attendee Bhavin KITCHEN, Adrienne CRAMER MD, Zulema Coto Role Performed Staff - Other Surgeon - Primary Time In 01/17/23 09:28:00 01/17/23 09:23:00 Time Out 01/17/23 09:38:00 01/17/23 09:38:00 Procedure COLONOSCOPY(.) COLONOSCOPY(.) Comments Last Modified By: Efe LAZO, Andrés Wilks RN, Andrés Kaminski 01/17/23 09:38:42 01/17/23 09:38:42 Perioperative Protocols FT [...] Time Out Ye Porras CRNA, Given Participants Efe LAZO, Tosin Low Micala E, BELA WALSH, Zulema Time Out Complete 01/17/23 09:25:00 Outcomes Met? [...] Right Arm (more content not included)... [facility] Main OR PACU I Recordon Main OR PACU I Record PACU Phase I Document Type FT Summary Primary Physician: Zulema CRAMER MD Finalized Date/Time: 01/17/23 10:32:26 Pt. Name: KETURAH HERRERA.O.B./Sex: 1970 Female Med Rec #: [id number] Physician: Zulema CRAMER MD Financial #: [id number] Pt. Type: O Room/Bed: Endo 10/17 Admit/Disch: [...] By: LIZZETTE SOL RN 01/17/23 10:32 [facility] Main OR Preoperative Recordo n 01-17-2023 Main OR Preoperative Record Holding Area Document Type FT Summary Primary Physician: Zulema CRAMER MD Finalized Date/Time: 01/17/23 08:35:14 Pt. Name: KETURAH HERRERA/Sex: 1970 Female Med Rec #: [id number] Physician: Zulema CRAMER MD Financial #: [id number] Pt. Type: O Room/Bed: [facility] 10/17 Admit/Disch: 01/17/23 08:13:37 - Institution: Case [...] night. Patient states last bowel movement clear yellow./ELYRN Finalized By: Sonya See RN Document Signatures Signed By: Sonya See RN 01/17/23 08:35 [facility] Monitor Recordon 01-17-2023 Monitor Record [id number]#1.00CD :127 [facility] Monitor Record [id number]#1.00CD :127 [facility] Patient Education - Texton 0 01-17-2023 Patient [...] a plas (more content not included)... [facility] Operative Reporton Operative Report SURGERY DATE: 2022 [...] foot. A (more content not included)... [facility] Comment on above: Result Comment: Elec tronically Signed By: Martin Arango DPM\.rosi\Date and Time Signed: 12/13/22 08:38 EDT XR [...] by: LILIANA NDIAYE Date: 2022-11-29 16:44 Normal [facility] Formson 11-28-2022 Forms [id number]#1.00CD :127 [facility] Postoperative Documentson Postoperative Documents [id number]#1.00CD: 127 [facility] IntraOperative Documentson 0 11-26-2022 IntraOperative Documents [id number]#1.00CD :127 [facility] Coding Summary.on 11-23-2022 Coding Summary. CD:642013Yjak86NSg9x Ww+P GhlYWQ+OZ9BVKEtS53geELvc A7tC2JNKUtESwxaTFSNCLrDN pAimaZaDV9vrGDpMRIm IC8+WR0nOZCiIesfiTHwn8E0 dCY2R26who5lAHourAB5NFCu OhArjroio4uvvXw3WKxcHzib OyBt JLFqiJ39VJU9qD18Ro84wDEz bOJak6kbtIr4KbExZBQyKRK6 oUlpJNwwr3VkNNIeD48wuILo c2U6 DIOhhIoobSMpIyQomKL1qC7i BTdijufgk1anklyxBfd2iv70 bROnk7Q1uNE3S1LdxiO4BBZs bGQg GaoknZKGpP3madbss3pbcwlq BeWjJYXyRVr2OZf6ITZdgIqi PuZiRQ36AMY0HAXryvTtT8Qr LWFs nKqjWgN2m7F0Oa2SI3GPVocw L9WSIBACXGouzZW+BE21ph37 H9TgAzhdDqj4WRIePUE5aTS6 aD0n ZDJpOXird8T3nHW1W7SavfTi jc1ok3ifNAMeYDevW35rlKPb d9Z5OLOpnTR1NBSamTwzDkMi aG93 Oyc+JFCudRznn2PsSlqxf6kc i2yagZz2LgswPHUbvmMiqVmj KIA6y5JrJq6vNBHckTR1gHW0 aD0i KaVhScR7OCydU497YqVsrMXd UoqfA45kB4PynCZ+PHRyPjx0 SZTdiTwpJU3gB3CzQSLvsucy bGVm lVpcDP3zOBPdvmswIWIkvZ5p YGIjH2n9IrDtXsT2WGpaC1Pg JLSfntrwKf79kT4pYjZdUtO3 MGlu U2CmboH6QQIjcTWuZNnmCGJ1 Q03kn5O7FVBnIHHfPYA9sMW3 pR3ogGxrdwmvcWDwlXszrqLr dGlj AGfgZIwwY806KDAnpHwfWfTx ZGluZyBEYXRlOiAgMDQvMDcv MjAyMzwvdGQ+RNRlWZW9aKnn PSAn kETuUExbJb4twVrjjDlkIX4k WBAbfzafXYGfqW1gVRMsxFJt pBumSH5nVUHgygtgl217WnRi MHB0 TCEqmAVpI7WnlM6cPdBhOPSl SSRoA9TwoPOjAQjwH998CHtn PtZ5BFLmfrGeD1KpUTCheUbx OiB0 i4R6Jk8Ld4UljbxzZ1ZdsQCn PcXtIzflAJr3A5IaMdjcqPT+ OY45EGTeEM88YYl6OTP4bHfj PSdi EJQwJ9QcsV5tBwOeWBZxOCRd Oyc+PHRhYmxlIHdpZHRoPScx YGXmMeYqaIcuIH5rNu2pDQKp LWNv bKagyJMqYjBtb6xcHAYjHQoi UG7mnCzgL0YmjUZ7OPEsu9y8 Jt67X69jF4NhxFN+PGNvbCB3 aWR0 cF4bCkAgQlS1SPdhQ049SrRk xNZiYhibr5iwq0ctePc9KhB3 WKSuboSifFpwYLW4m3TwNd10 Y29s IHdpZHRoPSIxNSUiIHZhbGln gg3mhI1lMt8+AVZxdSG4tLU8 jU6pWcFgTtA6WNkdB242FcFy cCIv Byjac1jwj0bftUw3PeWhFRNi kqUcnHawJRE7t3QtVx57L8Xp tMgrd5ZuWhf0fh11xSSjz8O1 bGU9 A2TvVAZkzgvhkAGtzPyiHD7f SENekinvKPOpqI8lEMWzZ7j0 ZlRsDyK4LXsxP4YycrF7TLZs bGQg QTPdnZQZpM1vicsmk4yemqwn EvNdIRBrFXa0ZUb4DTFmnUyr SfTbTWR9HyG7BMP0vOVtqQ2x bGln tjoqjZ8dRxm+JID3aLRjxOZD GO1tUatzqTJ+SZGsQQO6bFtd WBnmNMNnsE3iZNEiK3b4JwJj LjA1 GUqvJ5OgsnT3FSYamHCzDKKs yOXZuQ4trywuc2tosvttKlZj EWSxVFj6REk5GVQshMpxGsWw ZWZ0 LtY4SHK9eSHwvS1qhRbuudnc sD1zBwr+CuacqUckVXK9ROw0 Q2ZvSod9ARQmaNkdQH6pjXMb ZGlu Xk1piVuirYihRP9cNZBzmdpd t226KfIue2igMPZjqWXtWWnu RCH3B68tu6W0MIMaNUBiPVY1 dGV4 rS8knZyzexasfYJcnRgtajSx mDzyUQsmIAkoV294MDNoiLza FzZlMXe6K3YySjb1EKObgMyy ZT0n qYQuJUcgAo5ufOnrkTspSX6l UDDvgynzb771GbGrr2zfAEYv qWWbJAsjHUV5R66dm9Z6IJMy MDAw VOF2gXQ6yV6jeVasehbezKRc rKkpicRcwUykASjfINroB903 GCQmfCpdIjMyvDo3J9SoKuc5 ZCBz gIkbPR5krPTwBVyeZd8phFjb eCeyMX0fILDrvsxmj782XvDx c6jxFSYbdCMmSDheKKU0X98s b3I6 PGHoZZAjXZT5rBY6bN0obVil bjogbGVmdDsgdmVydGljYWwt LDqqC255RKMxxEurQeOeiYaq bnQg TFmtVIv8A1ZmOdngyRA+PC90 QEMzJU84bNLhqXRci8zqqOb1 YqIaBOFlHTI3dXkiIIxzj7Xf ZXIt G62euIZud9H6UUZuaXymwVAc IfJceRY0eZ7wNKcfppayk2ia nmcdYusdy6kpls10pP93S55c IHdp PPXuYJXqZBJuKFObcUwxrp1m fI5xHr5+OARbuDH1aJM5sH7o TXZoHbX3WXbaS163NsIwxEDz Pjxj v8uyy5ubgVt9PyZ1ACXfeeEj rOluPME2z9KtAo41V00yAYtn YWJrLPIfRZOpFLUimAjpre2h dG9w Ii8+QEPucQR1kKP1rH3fRiGq TsX4DNadW260ZaSqhCRsKhwl Q19gV6TmySM+ANSrXje6DKEj dHls VH1ksEPtYPxmIy6yOXI0IhYu PaHaPUymN9CrFJOwjwzxhgef fHN3MLLuDOZaqA06Tf9xuYlv MTBw fZKFwY3yhoioi3ffkhrdIbQx KMLsWYk8AXw2QMJxkCqnMjMd EWN2HmN2TPC7aDJklK7oaGoj bjog vV2cY2XqAJNbquzyPb89sQ0y VeXoLbE9ZNtuKyf+UEFSSVNI SQHHTZ9OIEU8W2AgJvy6FLUq dHls OM2ivFYfFKjdHx7fjEdhfEeh EU1rLOVdhyqoAWUbaM6gMXPr hQUvoUdlPZ0qYERcvadzt126 OiAx WEO5DDOzjIJxI9OyjE4dWvIz BEPiTHNgV2KzuMFwDDfhN466 XShaBpV4ZVFcdzBqG4TwMPUw aWdu GtN1q4Q3Pa1qXj0nGK9uIRdh JR65RW36vMKhy2Z9xDM9K8Tw EKMqdcvqxllweCR9QTMpXXAv aW47 qNAaYNmlBk3st0M4e334HUCq DFHraU13Rt0qoNlwHWObiXUV fM3cenijl9lrhtulPcMzVYNr MDt0 ARy9VATyxPujJvJiFQS7JhE8 YAV6dLFwaH4dfUkzvlyzwJ4g Oyc+KZMqBNLuufG9H8LuWgc2 ZCBz dJjiQH6zsOOmPTclAn5haRvn hAtjCN2mDHApfwlnGUZrnC0d FKAfpHOroNjlVE0nXDEuywrs b250 RuLqCDQ5ISMvsTWzR3JijD7p KaJmITAaYWIsR8KigQHgDPwi T321UZloTdC9EXOvtlRmZ2Vi LWFs ePvsHoM1c9J8Ho0CSY7nwNB7 H5JaKuj5SDGgdGhvBJ7ixWOz BXhoGd5lcYxkbPthUM7lYAGj bjtw EALwjS9mEUAvzUJyvDogXC5n ELLyfjtou488DlImVMF8AOAr wIOpU7GhiJ9wAuSyJLGnRTVt O3Rl iRAtOXteG134IAfuUtP0IJQo ddRmC7AhRATjzCuqEuD4s1Q8 Tl3JjIXmROZyOI25IH62DN80 L3Ry PjwvdGFibGU+PHRhYmxlIHdp KACsXBkpJAZqEfYgzVazIO5a Qv2gCTZyMEOwoGjwlQZzNsPj b2xs XSNhKJmfNV2uoBtmJ1KdnEM5 ZNExk2m2Dr62W24hZ0WxeMH+ XKDtqIC2bXC3tT2iTkYtGrB6 YWxp C078ZnDmqUMdCdjam7ccc2gr kJl7FnCoITJjzuBsxKjmBYV3 l7VcUe83X04mXEtqTYTrELNa MCUi DHNzyEtgyq0swD3yIr1+PGNv nDW0wID6hC5yZxNpZqL6QNim F349OcFejKMvWsbwC44uH8Ov dXA+ XUVoQat5WGGmwMwuLQ7yhVYd UZhbOl0oSYZ7ZeMzLyNxYYok T5UqDANbfdeccevzdTW7QIZf MDUw rA06Wc0bfUwrMj0kDSJcQYL2 TAWycCFcQ9VctK3qWyCpXOUc WQDqW6KylSTbIMtpT524VLyp ZnQ7 UCMjdpLtW8XvGHTfdQkvSeZ7 o0T3Nq1VaJgdyOGjTS3aNmNn OOw0C2ZdDey1UXDwtUntMH1t cGFk FKyiIe8goHfrkXboPY2sJPWw mhpwj435WlFak5hhZNFxkAUu QSjbOVS5I86tq3M9QKPuLIGi MDA7 cVF2iS4oyWvtnjpqtTLclNxg zrVfgRkeIQcyIFzmR540FSYa tFeiUvMSOqe3S0IuPpk9FPTt dHls RJ2fyOLqMExuQq2oyUnnfRug DT3zVUXrgocqv765TrRom1av EOGrrPZtDHutDGE6L92qs5T5 ICMw BQXiGKD9vNN5jP9inLuymqnt bGVmdDsgdmVydGljYWwtYWxp P892NINyrShiMx1NFjd7K2Ux Pjx0 FQCjuYzcRT7doQPbXMemEi4w bAzhaCmpUU1pLXExagjlv673 XiQcw5jfSPXqxSRwKFifYOQ8 Y29s k1D0MJSvFVSvAJJ9bFC2tY8r bGlnbjogbGVmdDsgdmVydGlj HUslGMceI945RJEfoDgqUcUb eWVy OjwvdGQ+LY15mm76A2RdSyoa Rlo0TIWeRST4qUV1dC6pNRRh LHtex5V9oNM3H2FzndOlkm3h b2xs YXBzZTog (more content not included)... Normal [facility] Coding Summary. CD:[id number] Ww+P GhlYWQ+XA7IVEFpP90ajXJig J8eH7ICZNjKVkyuKJMYFJbTO uWpolCoIB2vsCNvCVTu IC8+RF3mADRuIpvgeXGtf4W4 dQA0E96zhi2aXOuwuKI8WTNm YgFlwtkat6nypMr2IQkvQnss OyBt FRUdpI76FJC4gN40Rs03xPWo vNTpq1denWl8PuBgKPAuMAF2 aMscIKrzv8RcDZTgF96jdOUa c2U6 XLWdeJsbrYMbBbXugRF3aA1f NWmbwqwtg8ofixdrLnp9wz90 gVKyx6X8nAG8Z5FosrD9ZZJr bGQg NopifJFMpH1miexqt8wysjrr NcJvJPDeVQm0EDo2JOElfXac VmWhEE93UEA8DFJzyeLtY8Xd LWFs qQotTrR6s8P0Th5AW4MTRxfn X7MHGFBJWCmwgGE+XA91jf89 M8QbMegzGmv9EWEgYSG2pPE2 aD0n CHOrQCacc5D4fOW0O6XbhxSs wt6ol0vsMGGjLXxnL61gyWQu f4K1TQVvuEI4HBIlpZydIqOr aG93 Oyc+ZWVzvMify6NmOurva2cz q6qdxYb7DohuPWTdweBmrMmo OFY7a1NnDx2pKXUhmUJ7lIL8 aD0i CmYaTjI2FLxdH251IiKjsWKk YgteX50aH9TbqPF+PHRyPjx0 KEHddGdmLI7uO8OaXVUxwreo bGVm hXejIR3aQEGafgdeDMWucB7t MJYpD3q5DuPjMfB8KCteA0Mg HJGygjbzIm57rV8eGtXiRcQ7 MGlu Y6HuudO3KANvaCUqAPtgAWT8 E26sw9G4NEUtLWWgNLQ5aJQ8 mH9kuCokfddcnXHqtZclkfVy dGlj GUlkRMceQ910DPQngLsaPbCx ZGluZyBEYXRlOiAgMDQvMDcv MjAyMzwvdGQ+IHAsASC8zTae PSAn pIFfBUagAc9rzGwtaIyiJO0w ULZfzdmbMEZboQ5rNMAofXTh wJdwDS5bLNUbkyvbi865IsWu MHB0 GJJnaNTwR9GuaM5gNcJoMTPj VGQdW9PugDSfPVflS316MFmz JiK7NAOuxnKkN7DdLNGtiZoq OiB0 q3Y2Wm2Iw0SrclocD2VxkODj BfWlThkrAKr5Z9ZpJgsgoEE+ NY75PXHaRC64PPy9BUJ7wNrd PSdi XRHqH5YgoD2kEfIgGTRlQXZf Oyc+PHRhYmxlIHdpZHRoPScx ISPrXxXxoSivDQ9wGo4pMCLa LWNv vTaauOPhBhOjj2buXQFtYOuc JR3loTabK8AcvKD0VUErs7r2 Mz73J86uR0UthDC+PGNvbCB3 aWR0 aC1wFkDwJqS6HVucK970KbGl eQSmRtkop3shu1omkLv1FgY2 SMQfqwLsvIymLQU1i5UySj62 Y29s IHdpZHRoPSIxNSUiIHZhbGln mi1cqG2aOn1+SSOdwQB1vFC6 rG1eXiMuPlQ0YKyvM713CtPi cCIv Epsfg0ztt6nglZt0LzHuPQIa vqBmuSzqITS2f5SlHx96V8Uv bQdrz3PbXxj7by18kAOcw3Q2 bGU9 D3BrSYJxwmlicDRtpKsaZM3r LKOzhwcxHOGaqN0wLBOfU3n1 LaMxKgP0XWgpT7HbadY9JKRy bGQg COGefTYRpD0xakbmw3pbxeqe SeKfVWUnLQw7NSk9SNIvsNbt CfPcFWP9HjG2BTA1aDSbvS7i bGln lhmvfD2uBny+MRM4pWBfsMGG ZX6mDjoupBE+DAReUAZ6nQlz JEpoSXRouA1lNQMmU9u5JiYf LjA1 UQfoJ6OmtsU8TNLfiLAwXLJg yPUXwZ2haexwv0oefckzOdMv PJSmTBo1RYb7VIKcvAtcRgWu ZWZ0 XqV6RQR5hBAkbG1gvOjtjhlx mR4sTqu+BatvbIsvNSD9RDk2 C9JkUnl8JEMkfDjeLW7ohRZh ZGlu Vj5mzZihpMynRE5jUYOrrvcu n084MeWxn5vxOMDghJPxXVkb CDZ2J28nq8R8SIZpYAOyTYZ9 dGV4 wY4ijSooijuhtIEliAajmcRx cWgjOQipKRogX910JZSldBae TaNaNRh7Q2EfEcz3WIAmvWaf ZT0n tNZbTDhrJx9vhKpewKzuOQ2n DBLnpscfk696ViZxg4cfZBSh yJCnMDcaPYD9G02lg3A1ZGTu MDAw OLE1eHJ2jR7fgBhlkwlqsOEt cJfgcvJmbOubIFjzKMdtB279 JTNsfMprZpUhxZy5S7OkEhi5 ZCBz sYtbOL3xcQRmUPlrIw9qwRfo aWmyUP2nFHDkpyxav018QaRz n7plQMGbaNStRZgwGLL7G30s b3I6 UPJkDEEeJUV6jUA1hY2ceIjy bjogbGVmdDsgdmVydGljYWwt BVvnA443KSWagYwxFdNljPty bnQg WDrsSNq0W5OaYsjncUM+PC90 MFHmEU70zJLbpCNry3moyTd7 AfBkPURuKCQ9vYorTFowo8Oi ZXIt C44umXQin9V2ULSfoMqkmXFy HcEfvUY1oW2gRJjegqays4db wehsKjdff5tvao60eW27L71i IHdp PYHhWUBpXHGbKBJniVbsah0m bL9gAs7+CPAmgYC9vPW6cR5z DCQaMoC6ALneZ957CkVbaIEk Pjxj a7kks2imcLo2AyI8LFOsoeKz fCqfXQH6h0NtRl06J72qXIzf BERnZCWiISQjHMEhmIrckl0d dG9w Ii8+LXSyhQZ1xXL4uX8qFaBe TjF2PKjdK902KbScgBYyJvwm J73oA3JhrSR+VOYtNaz4VQYi dHls SO9hcXAvJFexMa0jZMW1ZpZi ZlIsMLpnR3WgGJJfyutzdyru lNR0UHYcSWGaaG61Wt2olOgc MTBw jVERlW3jqcorl8lpqkyuBiEg XPBgTBe3DUj7NBRmvZbpZzOd PDO8UpL7SQM4sXAguU0hxSxc bjog sB5uB8DmCOVbwempBi03gQ6l MpCuIaL4ZOdoQxn+UEFSSVNI FFNXIU3CTFW1R0MpRpx2DIEh dHls UC1puGAhTMzhJx0ifMrgfUti RR3wKHLtpexuFGCmbA1oTUFt nDHmlQqbJW8fXUXqjrney606 OiAx GGM7RZHzjXNjV5ZbmJ6pLhCg SJUwFXLpM3YlvUMrFTlrT965 GCtaUyW1RSMvgxWmJ3JrJWXj aWdu YvJ2u8L2Fq0sAq8sFP8lQDvx KG72PR17nFEvw4M4bOL9O2Ig PPInmtmopciluOE5MANhJDCg aW47 hKYmMPkpYy4on7J4f135AMOa EURtnC73Xn6oiAlrQFGmeEOB tZ9njwcqk4khjspeKdNySCTi MDt0 WNq7RQKchJxiVnUiFVO9TcD9 OXD9lLCkvV0dvKnruxbwtV3z Oyc+ACTuTKDkyuF5C3OcXog0 ZCBz nBvaLF9smODjQAfbXn4hhKvw sUpqLD5lYOGtiqkvXZPxeY8f ALHptMImjOhpMA9eWODrhsdr b250 LpGuIVL9WEZysULvX2WzkF4l EgDpBIQxLFOkE3PkpUZzGKam H504NQjeVoC5XBVrscOqD5Kv LWFs bUmvPyT0u0K3Kv4NXO8oiMC8 C3KuBep6GOEigMpiMY1sbEJf OXbyAz5zxPvlzFtaVJ3fCAIv bjtw AZQcjW8fXWCzgWIjkTbxVA7z ZITmhirwg260NjDxMXE0YIMz qFXyT7QawD2lZvHeJPHgJVHg O3Rl uECbNWbcF644ULjmFsV3ZOMt ywQdA7IxFYOffAztSgX9a5K0 Yj5EgSH6oVT8h3K3V6KcaCCi RGF5 TDA5nrzkndv7G5XtZnlvkLX+ FT91EQTtLC55zMNhbXKgi8lw kVj9XkKqNOSjKHJ7rKftDLcr b3Jk PUCtO52bgCEnf1M2QEEvmUds zZLqXzDxwRE9eE7bJYkvepax e0tllxstXtqbg2hadc15zR90 Y29s IHdpZHRoPSIzMCUiIHZhbGln lc2cvJ7oNp4+MFUteWI8cBM7 jO7cZkYrGoA0VYnzB157YtNo cCIv Ozuuv9ugm4vmiFj7RzEmCFIz dqOztPywBQZ4f5OcZt71O20i IHdpZHRoPSIyMCUiIHZhbGln bj0i xD9hUp2+BC1mn2emeo85lA10 dHI+NGWsXDG9lYwwNDnpGSPf lL0iECosSxJ4FXXnWnVbxC41 cGFk XXyrLx3ztTnhuTjcAO6tOXUi kwkrm886RcCfq0mtHCZijIZh ONpqXRE2S46ph3C7XIEwCWIw MDA7 kFZ9hV5tlJewfvmdsGFvnQkb ipIieDacOXqhJFspR458WABs mBvhBhVfeJBbS1wkdrIXQL9u Ojwv dGQ+YHFuOSS9dDskCDbpGOBc aE5vHGGvF7o7DuTyXoK8TSjh W7ZtgyU9PRIrkJAxOPTdaZZU aW1l pvacm8pwqtfcUsQqKDVkBMe4 UJl2SHPqoWtrLiQzFRN4WeJ9 CMR7cIKxiV4ktNdknwrahZ1o Oyc+ RklOOjwvdGQ+OULaRRR4iSor QPzhMESxuK9yMURbV7f3YpCp BeU2QLpsF8SnzcG6ECIggFTt MTBw rCPLsD2owxqxt0eyxpyeEmNw VCShAPe0KHz4VGUtoAdvNwXg ZXH0YqI9JUX3qQXydR1oyCrp bjog cW0vTrr+TVJOOjwvdGQ+PHRk UGN1oOjjJBeqLXJfbP9uMKTr U7d7PkLzHmK2NHuoM2EuvvM8 IGJv oOCiCNYuvDCJlK1mbobbb2sq vnxhUcXkLBTrYVc7HPn1ANSa oZnoWpBpNGK8LqU7AFP5cFHy bC1h eBhplmvsoG8uAla+VKR4GLF4 YJ44BN06Y2VcWfwhcLYbfJC+ PHRhYmxlIHdpZHRoPScxMDAl JyBz hRtwUK5l (more content not included)... Normal [facility] Main OR Intraoperative Recor don 11-23-2022 Main OR Intraoperative Record IntraOp Document Type FT Summary Primary Physician: Martin Arango DPM Finalized Date/Time: 11/23/22 07:26:47 Pt. Name: KETURAH HERRERA/Sex: 1970 Female Med Rec #: [id number] Physician: Martin Arango DPM Financial #: [id number] Pt. Type: A Room/Bed: Admit/Disch: 11/21/22 07:20:01 - 11/21/22 12:55:00 Institution: [...] Role Performed Anesthesiologist of Surgeon - Primary IRRIGATION SERVICE TECHNICIAN Record Time In 11/21/22 09:08:00 11/21/22 09:08:00 11/21/22 09:08:00 Time Out 11/21/22 10:16:00 11/21/22 10:13:00 11/21/22 10:16:00 Procedure HAMMERTOE HAMMERTOE HAMMERTOE REPAIR(Right), REPAIR(Right), REPAIR(Right), METATARSAL FRACTURE METATARSAL FRACTURE METATARSAL FRACTURE ORIF(Right) ORIF(Right) ORIF(Right) Comments Last Modified By: Radha Cannon RN, RN, Radha Michelle RN 11/21/22 10:23:38 11/21/22 10:23:38 11/21/22 10:23:38 Entry 4 Entry 5 Entry 6 Case Attendee Radha Cannon RN, Jessica D Schafer CST, Adrienne Coto Role Performed Production Floater - Primary Scrub - Primary Scrub - Primary Time In 11/21/22 09:08:00 11/21/22 09:08:00 11/21/22 09:08:00 Time Out 11/21/22 10:16:00 11/21/22 10:16:00 11/21/22 10:16:00 Procedure HAMMERTOE HAMMERTOE HAMMERTOE REPAIR(Right), REPAIR(Right), REPAIR(Right), METATARSAL FRACTURE METATARSAL FRACTURE METATARSAL FRACTURE ORIF(Right) ORIF(Right) ORIF(Right) Comments Last Modified By: Davis LAZO, Radha Cannon RN, Radha Michelle RN 11/21/22 10:23:38 11/21/22 10:23:38 11/21/22 10:23:38 General Comments: yandel hancock arthrex rep in and out of room as needed. Ana contreras rnheel turner Protocols FT Pre-Care Text: Implements protective measures [...] DO, Brown DPM, Kirsten Bravo RN, CNOR, Lady Flores, Davis LAZO, Desean Caro Jessica D, [...] REPAIR Primary Procedure No Yes Primary Surgeon Martin Arango DPM, DPM, Nicholas A Start 11/21/22 09:29:00 11/21/22 09:29:00 Stop 11/21/22 [...] Assessment ( (more content not included)... Normal [facility] XR Foot 3+ Views Righton XR [...] mGy = na DAP = na Normal [facility] Consent for Anesthesiaon Consent for Anesthesia [id number]#1.00CD :127 [facility] Discharge Instructionson Discharge Instructions [id number]#1.00CD :127 [facility] IntraOperative Documentson 0 11-22-2022 IntraOperative Documents [id number]#1.00CD :127 [facility] IntraOperative Documents [id number]#1.00CD :127 [facility] Preoperative Documentson Preoperative Documents [id number]#1.00CD :127 [facility] CHEMISTRYOrdered By: Lab ROP User on 11-21-2022 Glucose [Mass/Vol] 91 mg/dL Normal 55 - 99 mg/dL [facility] POC Subsection Comment on above: Result Comment: Dahlia sneha Meter POC Device SN [id number] Invalid Interpretation Code [facility] POC Subsection POC User ID [id number] Invalid Interpretation Code [facility] POC Subsection POC Username FELISA HOGUE Invalid Interpretation Code [facility] POC Subsection Capillary Glucose POCon Glucose [Mass/Vol] 91 mg/dL Normal 55-99 [facility] Comment on above: Result Comment: Dahlia sneha Meter Performed By: #### 2 [id number] ####[facility] [id number] [place] [address] Consent for Treatmenton Consent for Treatment [id number]#1.00CD: 127 [facility] H&P Updateon 11-21-2022 H&P Update [id number]#1.00CD :127 [facility] H&P Update [id number]#1.00CD :127 Normal [facility] Inpatient Patient Summaryon 11-21-2022 Inpatient Patient Summary [place] [id number] [facility] Clinical Discharge Instructions PERSON INFORMATION Name: KETURAH HERRERA PHYSICIANS Admitting Physician: Martin Arango DPM Attending Physician: Martin Arango DPM PCP: ROBERT GIRON DO Discharge Diagnosis: Comment: PATIENT EDUCATION INFORMATION Instructions: Foot Cryocuff Patient Instructions - FT (CUSTOM); Post Op Patient Instructions - ELVIS (CUSTOM); Conchita - Post Operative Instructions (Revised 07/29/19) (Custom) ([id number]) (Custom) Medication Leaflets: Follow up: Type Location Start [facility] Follow Up [facility] 12/10/2022 2:40 PM 12/10/2022 3:00 PM Confirmed Surgery [facility] 01/17/2023 9:50 AM 01/17/2023 10:05 AM Confirmed URO Office Visit [facility] Renetta 01/30/2023 1:20 PM 01/30/2023 1:35 PM Confirmed [...] 1 Tablets By Mouth every day. Comment: Pamela Nash [facility] Main OR PACU I Recordon Main OR PACU I Record PACU Phase I Document Type FT Summary Primary Physician: Martin Arango DPM Finalized Date/Time: 11/21/22 11:21:14 Pt. Name: KETURAH HERRERA /Sex: 1970 Female Med Rec #: [id number] Physician: Martin Arango DPM Financial #: [id number] Pt. Type: A Room/Bed: Admit/Disch: 11/21/22 07:20:01 - Institution: Case Times [...] Signed By: Justina Nassar RN 11/21/22 11:21 [facility] Main OR PACU II Recordon Main OR PACU II Record PACU Phase II Document Type FT Summary Primary Physician: Martin Arango DPM Finalized Date/Time: 11/21/22 14:06:38 Pt. Name: KETURAH HERRERA/Sex: 1970 Female Med Rec #: [id number] Physician: Martin Arango DPM Financial #: [id number] Pt. Type: A Room/Bed: [facility] Admit/Disch: 11/21/22 07:20:01 - 11/21/22 12:55:00 Institution: Case Times PACU II FT Pre-Care Text: Identifies barriers [...] Signatures Signed By: Luana Carty 11/21/22 14:06 Normal [facility] Main OR Preoperative Recordo n 11-21-2022 Main OR Preoperative Record PreOp Document Type FT Summary Primary Physician: Martin Arango DPM Finalized Date/Time: 11/21/22 09:31:23 Pt. Name: KETURAH HERRERA /Sex: 1970 Female Med Rec #: [id number] Physician: Martin Arango DPM Financial #: [id number] Pt. Type: A Room/Bed: Admit/Disch: 11/21/22 07:20:01 - Institution: Case Times [...] By: Radha Cannon RN 11/21/22 09:31 Normal [facility] Monitor Recordon 11-21-2022 Monitor Record [id number]#1.00CD :127 Normal [facility] Monitor Record [id number]#1.00CD :127 Normal [facility] Outpatient Surgery Discharge Instructionon 11-21-2022 Outpatient Surgery Discharge Instruction [place] [id number] Patient Discharge Instructions PERSON INFORMATION Name: KETURAH HERRERA Date of : 1970 Current Date: 11/21/2022 11:26:17 PHYSICIANS Admitting Physician: Martin Arango DPM Discharge Diagnosis: KETURAH HERRERA has been given the following list of follow-up instructions, prescriptions, and patient education materials: IF UNABLE TO CONTACT YOUR PHYSICIAN AND YOU FEEL IT IS AN EMERGENCY, GO TO THE NEAREST EMERGENCY ROOM OR CALL 911 I, KETURAH HERRERA, have received the attached patient education materials/instructions and have verbalized understanding: May we do a follow up call? Yes No I was present when discharge instructions were given Patient Signature Date Clinican/Nurse Signature Date Follow up: Type Location Start [facility] Follow Up [facility] 12/10/2022 2:40 PM 12/10/2022 3:00 PM Confirmed Surgery [facility] 01/17/2023 9:50 AM 01/17/2023 10:05 AM Confirmed URO Office Visit [facility] FILIPE Jackson 01/30/2023 1:20 PM 01/30/2023 1:35 [...] to serve you. Thank you for choosing [facility] HERE ARE THE MEDICATION CHANGES THAT OCCURRED [...] Mouth every day. PATIENT EDUCATION INFORMATION Instructions: [place], [place] Martin Arango DPM, NICK POST OPERATIVE INSTRUCTIONS Keep bandage clean and dry and DO NOT REMOVE Keep foot elevated on white foam pillow Apply cryocuff to top o (more content not included)... Normal [facility] Patient Education - Texton 0 11-21-2022 Patient Education - Text [place], [place] Martin Arango DPM, NICK POST OPERATIVE INSTRUCTIONS Keep bandage clean and [...] feel free to call the doctor at: [phone] or [phone] Arango paged. ____ Patient signature Date ____ Dr.Nicholas Conchita DPM, FACFAS Date Revised: 09-26 [facility] Progress Note-Physicianon Progress Note-Physician Patient: KETURAH HERRERA Age: 52 years Sex: Female : 1970 Associated Diagnoses: None Author: Brody Leon DO Postoperative Information Postoperative disposition: Postoperative disposition: To PACU. Anesthetic utilized: General. Assessment Anesthetic outcome No anesthetic complications noted. Review / Management Condition: Stable. Normal [facility] Comment on above: Result Comment: Elec [...] Postoperative Diagnosis: guicho. Performed by: Martin Arango DPM Specimens Removed: bone 2,3,4 digits proximal phalanx heads. Estimated Blood Loss: 0 ml. Complications: None. Normal [facility] Comment on above: Result Comment: Elec tronically Signed By: Martin Arango DPM\.br\Date and Time Signed: 11/21/22 10:18 EDT Progress Note-Physician Patient: KETURAH HERRERA Age: 52 years Sex: Female : 1970 Associated Diagnoses: None Author: Brody Leon DO Review of Systems Cardiovascular: Hypertension, Prior PA. Beta Laz taken in last 24 hours: [...] a past medical history significant for CAD, PA in 2004. Cardiac Cleared her for surgery [...] HENT: Normocephalic. Review / Management Condition: Stable. Sales Service Assistant: Reveals a Normal sinus rhythm. Plan [place] [employer]hes[employer]#(ASA) physical status classification: Class III. Anesthetic Preoperative Plan Anesthesia: General. . Anesthetic plan, risks, benefits, and alternatives discussed with the patient and/or family. Risks discussed: nausea, vomiting, headache, sore throat, aspiration, airway. Patient verbalized understanding. Informed consent was given. Consent was signed by the patient. Normal [facility] Comment on above: Result Comment: Elec tronically Signed By: Brody Leon DO.br\Date and Time Signed: 11/21/22 08:32 EDT Coding Summary.on 11-20-2022 Coding Summary. CD:[id number] Ww+P GhlYWQ+MM5ORENbU65qvEXwr H8iZ7ODHUrTPmzoTZLVPLsOD aWbnhAtYX2veSTiLAAd IC8+QE4sVMEuZlygsEPsk2A8 lNB6F59uks9iJNcytKQ4AVXt PeCthmtwg8bnzAg2DCieTdcf OyBt WGEfuC03EZH3vI88Rn35xFHl dWOim0tbgAz8VoXzPVTsQUM2 hIstHVlfz5TtJDHvX14qxGDq c2U6 RYMjxWvvfFWkAwKwyWT3hA6g HCxzpfqcs7bbsgcvJge1uz61 lXUzr2U6mKF8W1QpedY6LBYw bGQg LqbuyYXXcA3xtiwtr3hekjtv CzQfOFBwTTl1SJp2TTSleDto LeZlKN80HYN9PSAoviDuI8Oo LWFs pDleGnW5c0G0Wn9MP0HZHhze T0CQQSDDGDlqdLN+CR31dc43 M6GnYwzpMee0BMJiDZF4pNQ3 aD0n JEDfTQfqv6R1iUP6M8NbabEb re4yc0clNRHwBOuhQ29vlSXu e8S5ZMZklAP4MXGkgKxhYpDb aG93 Oyc+TUPklOlwq8BcDhtff2yc h2jraPb6NbfwCMTxmoWcxKyo NBX9e5XtBp4jKWFixVL7hAY8 aD0i CcCxPqC1BOqcD198VgWzeHZg WykyH04iO3FlaSY+PHRyPjx0 VOOhaDpbSJ1bR8CrRKDfvdtw bGVm oHspEG1iKFXrxtvgRSLhxT6l PDRkJ4q4UfGkWwN5KHjlM0Ar ZVBecqqjHk97bD7vXsPvRpC5 MGlu K7QigfA5ZFHhlKOeJTpfILP9 P87qv7R4GWQdAHTaHYI0eJB8 rH0wuItaayfapDRalBbitcWp dGlj JGrnNFfkM776SEWhnFdpLuNy ZGluZyBEYXRlOiAgMDQvMDQv MjAyMzwvdGQ+PHKuHGX2uSdd PSAn fVMoJFiwEw1xwZcksUgdUE8m VIFajypaXBVvsX5qLKVasSQe tEyvMZ0aLGUzjpkhr565AdNh MHB0 QJFdqXTlR9TfuK0tRhHjTGZz XZIgK4FndQJkZPusR764WIke LfG7VIBvlaOiQ6EgWMDyuVdf OiB0 u1W3Mg8Tw0JwyykiG4HqsXRi NjJfCctyTGo5D1YfRpqwbOC+ AN86AWVrHY44PTf7FTB1qQta PSdi TRZgC8GrpQ3dDfExKPNzXTMy Oyc+PHRhYmxlIHdpZHRoPScx NEMpAdIyuTngTY5pNo5jXYDl LWNv iQygfFZgOoPjz4zyCIEtANlz XJ6nfRvjY4XtzFH0VLLjo6b4 Tb73V75jU8OigPV+PGNvbCB3 aWR0 oP3fZcHrEoE5JQszR657TcHh tLUwWauaj8tuo6hzuGx8HjM6 NKSlrqMefRtpYPT0s0IgXt55 Y29s IHdpZHRoPSIxNSUiIHZhbGln bw8tlD2lMg4+QAVjyLQ2oCK8 xE6lHkBaHbJ6DQryS173FiFs cCIv Dmool5xoi0cohNd0GhAcFXBs ggStdUlgRFN3p0GnWo31H2Pb sYklq0NmIfz8la22xCGam4W7 bGU9 O9HuLDDomogzmMMraGftOL2v GSRwtabtGRRkuT8rPIYwU4q8 HnSbHlG3SYmlN6BjuyG5POHf bGQg QFXciYPBwO7mdhhlr1suonvq GxKoTTCkVMz6NWi4NGDwqZxq PiPpHOV2MvY2VJF9aGVigU1l bGln sfycfS0vBjy+JJK4iVJzrGRV RH1aXbyqiGL+BBLyUBP1kNje QGylKJIyiV4qWSHyS3n7VdYq LjA1 PTqxN8LmnrX6LUMmjQGbYUMu eDLDjY3wmppml1jrclbgFrTj EFPvNFk4JCf5NJIirJiaJrUl ZWZ0 SgP4TVD9xOLqzV8qkBvmxufg dQ4eYyx+AbvkoQrfGKM6XLy6 C2StSbm7OZOjdKjpPS9gxRRr ZGlu Lh1huHfarJzyDS4iFESowllp f278TpRcm1glNRRjbWZyLOwo LMW9Y45qb5I0NDUqCLZjOWX9 dGV4 yG7lwVbcomuwlOBojFlmdcEv kGrlRJptQQbuB483UGAuqWos FcVfWUm7G0XcIhl5HOMcmKkh ZT0n xMMxIFlsHl9nsSztlJboIF2p JXNejjonn817KiMdw1ubDEEb dKXaHCavSOM6K02gw3F4MQYl MDAw NDX6uIE9qB2vgPiviwvowABh qWblvcSexPuoCSgnOAdvH490 NNNhqPbqKdVdcAp8L5LzOcf0 ZCBz gTjmNC2zeUImDGmuTh0joWdu vJxzIU9cNOZamcfpz147ZuTk a4pkXXOcrCIoEDbdHZB7D09r b3I6 ZXDqLPLbWTW1oMU6eF1hmKik bjogbGVmdDsgdmVydGljYWwt WRymM895LUEymRbnZsFfaTsf bnQg SSyqBOo5E3NqEnyuaNM+PC90 FJQoRX72cSAopWKii1eoyJc9 ZjZrVMBhXHZ1fMtmPGery7Xy ZXIt C42nsRNlb7L6CUNopEdhiGQu SdMwoEA3kP4kEBoaxytmr9yu xcwuRgxai5thmu18aJ71T77s IHdp JPPqDEPmKJQySGLyeKadco4a tJ5oRp7+VTPrzMT2qIZ7mG1q OKLcKdZ2UKisD600TuWcmFZt Pjxj r2faz5npjRd3YdY8ZWQdbfAe jJwsWED9u6ZtCe32N39uRLpg TCRjFJKqEDFqFQXyvVcwqr6v dG9w Ii8+NILorJU1uJR3nK6nCtXl ByP1QPkaT129IhLzvEZbYlzq D30cE1BqdRL+WWTsAhs5DYBw dHls EE1aqMUjCEnhHv3dNOP7HyMk XoKtROssP1NhUVXibmadtbms iLL1YNKzEHXzlC87La7ghNad MTBw rCDHqN7cidjzo9itbaitObFq GLXbBWy3GRi3RDBruDviJiOd NPR4LpE9BUM2jGQybZ0pbJmy bjog qP2wC2QrOLBmuweeTi93hY6c CsRlXkO9UYqyPlw+UEFSSVNI DVAQFN4ZLRU6V2IyBep7EPNx dHls CU0deOOrDFaxDm5bcZliyWhj KJ0xHMSehbdlGAToyV0xJSYl xXXvbOfyJK9mZZPhbpful644 OiAx URH9RXLavOWpY8MbcR6xWlBz XYPsELDpX1GziNZoHYodA862 QFyoDuU8KEGcscZqV5NwGLVo aWdu RgX4u1W1Bq3xSa3tZM1lEKrs GV90SN92mOGul6B5oQU4C8Rg HHObiukebjibeQK7DUFeSAVu aW47 yITeVKufDa7ns2A1f580UUJo ZEUncV88Zy6noRdgBLKgyIAK yC8pejumu4lttafwNbGqTINd MDt0 DVz8DSUhiReoMvWrDGA2PrX6 UPR1eEWeaA4viUlxttuxeB8r Oyc+XEOlZPKghaF9X0OeTjv9 ZCBz aVcnUM3spMWsQQpiWd6yoGkb zVizIV2wNEWpqtjyJMCdcK7p AXDfeWNuiUhyEV9pSIRqjwwv b250 TlApXFZ6VWEiuEZcY2VarL7h JfHxBWVdLBNlS8JtzCGwPEmo C933JArdNkA6PMMptiDbR6Xy LWFs cZdqMmQ2d0D2Mn0NLN7ggXI0 C1FsPos6SCEjnLisJM1djKAs PNuoZu7hjXjufYjiTM4jNZUe bjtw ZCXotU7yXLXxjLEfdLleNA0b YVOrxnedk541BzMoQXP7PGZg nTEwA8QxeI9dIhXzRRGaROLz O3Rl mQNgXLyhZ707WSlvYlU6BIIy mvZyE4VjOVRoxHlaQqT8r2L2 Ci4KzQJbHQGkBE33PW69QV05 L3Ry PjwvdGFibGU+PHRhYmxlIHdp SXQdRGkzYAUtBwAapWreOS7o Ii8oHEMsNBFzeJpolKFqCmKq b2xs IUDmCBvvMW2oeEjoA1HqyRF6 MFQco1b4Po53E98iL2OsvKC+ ZBIhjDM4xSL5cH7zDxRmHlB5 YWxp B005CuZthPOaSprkg0uhm6bu xSz0HyNtWTDxvoFxlCaeGCK1 e0OcOs31L61mELqnSVUfIBXi MCUi NYNjmAlxmq4hpJ3aZi6+PGNv sMD7yNP9lH6tPaNeTyE3GTmh K643MgAqrMUgEvfoN18iL6Co dXA+ PAQdYlp1BWMjoGyfKX3kmIXz SFulRb5aPLV3VuXdPkMvETpt O9WvZILtnnsvalkdqGU8YRJc MDUw pU86Hh2whVxiZu5aIAYiNEO8 BWWciSObU4WskR9dJjOnJKFm PZUqY7HjcDOpVTiuI852QYvo ZnQ7 EKBicmUsD1PwTVZzdXfmTkQ5 c1E2Dv6EaXcinJSpVO4yHhUz YBv5X3FbZmr8HPUevIrvVL6y cGFk XFlqLl0ehChgnYmzMT3vIHJw fnoxt188YkOsw4trWVYjmNPk KDhhTTY9C67wt0W7OQXlRMFw MDA7 lQO0qR7frUxzlszgfTKncUsd odYowDraURtlUOuvM338HZHw wJunGyILYuz7J1PmEqw3LZJz dHls LK5qxERlZVbaTi6kqSiibEwl OU8yDODgmhnyj517FxOtv0wz MAMdhBEbPRxcJMD3J15ag7U8 ICMw IFRxENX9lHM4cC4dzVynjpdy bGVmdDsgdmVydGljYWwtYWxp A151LFLpnYcqSo3RPaw5V2An Pjx0 VVDjaAdiPI4dlLGhSKewXw0a lWsbqIzxNH6cHBCazgzyf263 IaYom7ivMOCczTYgETolTFQ6 Y29s e2T1VAVzNWVdBCK0xCR1zR7x bGlnbjogbGVmdDsgdmVydGlj FRnbUMdgR040KVFqiDhxFzBz eWVy OjwvdGQ+JD08vd21K3PhOpqn Ywl5OWZjGUH6gHO1rV4xFFFh RTrwl5T3jXU3X0IayyHizy4s b2xs YXBzZTog (more content not included)... Normal [facility] Consent for Procedure/Surger yon 11-20-2022 Consent for Procedure/Surgery [id number] :[id number] Normal [facility] Physician Orderon 11-20-2022 Physician Order [id number] :[id number] Normal [facility] BUNon 11-16-2022 Urea nitrogen [Mass/Vol] 7 mg/dL Normal 5-21 [facility] Comment on above: Performed By: #### 2 299105, 2114802, 4580797, 4040079, [id number], 7724558 ####[facility] [address] [place] [address] CBC w/Indiceson 11-16-2022 Erythrocyte distribution width (RBC) [Ratio] 20.2 % High 10.9-14.2 [facility] Comment on above: Performed By: #### 2 235225, 3907224, 8579268, 0820943, 07482107, 7576663 ####[address] [place] [address] Hematocrit (Bld) [Volume fraction] 41.6 % Normal 34.0-46.0 [facility] Comment on above: Performed By: #### 2 293700, 6432770, 1847875, 6264423, 62661651, 9379789 ####[address] [place] [address] Hemoglobin (Bld) [Mass/Vol] 13.4 g/dL Normal 12.0-16.0 [facility] Comment on above: Performed By: #### 2 726006, 5454200, 0738684, 7510607, 63873556, 5084797 ####[address] [place] [address] MCH (RBC) [Entitic mass] 28.2 pg Normal 27.0-34.0 [facility] Comment on above: Performed By: #### 2 534311, 9835195, 2710508, 3361492, 30442665, 0985884 ####[address] [place] [address] MCHC (RBC) [Mass/Vol] 32.1 g/dL Normal 31.4-36.0 [facility] Comment on above: Performed By: #### 2 671774, 1972235, 1708680, 1441675, 56177430, 5076701 ####[address] [place] [address] MCV (RBC) [Entitic vol] 87.7 fL Normal 80.0-100.0 [facility] Comment on above: Performed By: #### 2 157186, 9340738, 0425225, 9788791, 43694053, 3303138 ####[address] [place] [address] Platelet mean volume (Bld) [Entitic vol] 8.3 fL Normal 6.4-10.8 [facility] Comment on above: Performed By: #### 2 440568, 6800530, 3925267, 9154549, 14456228, 0162507 ####[address] [place] [address] Platelets (Bld) [#/Vol] 242.0 E9/L Normal 150.0-500.0 [facility] Comment on above: Performed By: #### 2 641594, 0450672, 9181110, 1659012, 35021078, 7227591 ####[address] [address] RBC (Bld) [#/Vol] 4.8 E12/L Normal 4.3-5.9 [facility] Comment on above: Performed By: #### 2 732914, 9961951, 5726869, 3932701, 49910280, 0348851 ####[address] [address] WBC corrected for nucl RBC Auto (Bld) [#/Vol] 9.8 E9/L Normal 4.0-11.0 [facility] Comment on above: Performed By: #### 2 444058, 6377372, 2656808, 1923420, 71909126, 0526311 ####[address] [address] Coding Summary.on 11-16-2022 Coding Summary. CD:[id number] Ww+P GhlYWQ+FJ9RUKXnR54zbRRyi R5dS8EGGCxLLpfcDYCAIScLL fKaodIpXQ6btKBfLXLh IC8+LB1rLMZfNllavKLeu1T0 iSQ0E01dai8sLWjzaIR2YFZp BdLtkampq8pwkHp3GLnxQrsg OyBt BTBhmQ53YCS9xV31Ic57sNCz oTSyv2lczXq1TiMvBKLkXBL8 fCyjTLvxj7CoMUHzG56udTBn c2U6 NEQrdHeenJNpJjDqvTD0tL4a JHnyycjmd9dvjchbXcm2da46 bRGkc5W7cQI2K7MserL1ZUOr bGQg RrloqHHCqU8hqswqz9bagkfa DhXuJGDaAQi8IYf1XPRecQas DiHzYK26TMF9IXIuqeVoB5Mr LWFs rEceXdL6i0G8Aw4IO6CLRdgm N1NCGMHPVZzdwWR+MN47xf90 L7EgSldeQyh3BDVySPZ0eBJ7 aD0n UKTbHDpwq3Q1rNA6Y6PtogZj ok9vn3uuIWQdTFmjI08qjFAt f2B4BMLsfPM5BYTznEdkZtJb aG93 Oyc+PWPnvEcev5PjVuchy2be v0hcfUg4JsfhQZGamhHclKyz NSJ9f4JyMj7vKTVqvSF3hXU9 aD0i ShQbGjL5FKwxJ472HoHuxNZc DatdL01yI0RgkBV+PHRyPjx0 HUWffWafXU8hC1GcWERtigqw bGVm hAzoUJ5aJUZfniztIPBrlG9q MZOdJ0r8VjVcItD2KUfrJ1Qo DCKyibyfTy67oN8tPrJzDvT6 MGlu Y7FtzpG1KFMsuGGuZSeuFWH9 O49jt1U6CDNlOQLwRUZ8qDM5 xE1ltEsgeyzrmWMrjSshoiHi dGlj LJrtMEosF667EELbvTnxRaYk ZGluZyBEYXRlOiAgMDMvMzEv MjAyMzwvdGQ+ZCMpYKB0iWti PSAn iINjHXdpRc0jmFkoaMhoSG1z ATImcqstSWTplN5uZAOweLGn cTrsEV2fNZNcplicy829IdZw MHB0 ECRtnZBaP6FshE5iFzMpLSSl SWRvK0HiyUXtUKcxW098NFid AjA4GUDzzjMvU3JoAAQgbMek OiB0 d5R0Si9Yn6BpyomcD2DleGDu SoZpZkkgVVs8Z2XiSeextUR+ TA59LZGhED18PYy6LFD7aWqk PSdi VJBtV6XrqR1qFlTfFSUfDPKc Oyc+PHRhYmxlIHdpZHRoPScx JXUzNtAviDcmDF5nHf7pNWMt LWNv dPsgdHIjBjEqp7zuJRZkXVln PL8lhUpuX0KreQN2ANYoi8k6 Tn06J91oN4HadGU+PGNvbCB3 aWR0 vI2jYoKbCyK2VDanJ689EwGd kGBfHwfke6fpm1zxcXb2YrW0 KXVfxcRiwVyyXLA7v7NmWa67 Y29s IHdpZHRoPSIxNSUiIHZhbGln et1ioH0pFf8+ZDXclLR8vWJ8 bL2iVqPtVaJ8KFzgO554YvKa cCIv Jveic5dhh4asmMv0AqZgGVJr qqXihZlcLDW9s3ZaZe09V0Wx fVsku4DtSds9dh44mOUtw7J1 bGU9 Q2IlPDVhmobedGAkgWuxWF7x HPTubnhuCXMgxO4tDPNsR5u0 HlIbDwS3CLefE1ThpnP9XOBb bGQg TLZuaKVYoN2lbkwdi4uzbevv SlFcNFEjODf5QGa3PWBydCsl RwEiWUF7VzS6PKF4bPBtuY5l bGln vfvurN4hImx+SVJ8yJZnmDAE EM1oWplbyDQ+VKYnSPS8sDeq SPokYZJmfE2yNCPdT1y6HsUw LjA1 PEwpB0JneaC2BIXmqSMqDGXy rHHFzF0otrbmi5bqtwfpUkYl XGQlLVm0SBg9FLCxpPboDlWl ZWZ0 JbA0NCU0gUVvyR9saDcqcake rO9eKle+XprdjIosBLK1SLp2 O1KvEon5ITEcvYvvNM1txVMi ZGlu Vf4lbMlqgPudSX0tOTJpljhg g538WgAyr6wjMUYfkTNhJTis NIJ5S72br0L2JVPfWWZaWXY8 dGV4 pG1pbZpteyakbSFbrMlibkIn bUjuNExtJXwyQ903IYKbnUzz VqScDXs0G5FbMbi1QRDpaJmt ZT0n cOFsLYabKf5ojRcwmLiaIL2d GOBzrunum478GfVoo6oiYWYg bMGiXJsnLJK5J90fz4I3SYKs MDAw NNH7uTP9uT9ipXvuuowuzAKd bZliafSoyZivPApeOIjsU309 IHCzqSzpCbRzwBv5W0UzKfk6 ZCBz mBzmKP6trGRkCZlpYp5hhCee nNeqNF0lNJAstozcg053WpBu k2kfCTNrhFEkZCodGIG8V27k b3I6 FRKvGBVqEPQ6lDE7gS0luIss bjogbGVmdDsgdmVydGljYWwt ZNcoR158FPVeiLjsGhMfnUap bnQg NOxySAf3D0EcMhnpmAA+PC90 HVCaMW74yAKnbMAiq6lbeBy4 NiMbRUSbMTI4xGpnSCtky1Ul ZXIt P70zaAOtq6S9RXZawLfhbXJj UjSapFB3hM0pCJhsdthis6tr hwbrUcadv7otvv20wJ95C17x IHdp SMJgJRZnLLIvXQQznJqdog4j yT6rQd4+MFNzuZA8xEA0nD1f KEDfOuA0SAzsU833QbNyvHCx Pjxj e3fvw2ozdCp4TiG1MHKdboLm pAypNGJ8u8FnSv39Z84dAQoi DMOdAUYsSPAzCWNjtNefvd8w dG9w Ii8+KXByhMN0mKV5tL1eJfLj UkU1MLmmK123MuNnvIYiYrxi L42jC2ZlpTF+DFAxOpr3VPGp dHls UI2ceOJyZYspFc2fEPF3GoJn GrPjKJonU3ZdYRVxhxzszqnd qIQ0TNGjGBMesE12Zj7pqEzi MTBw fFDLoW9mhernv9dhpswcUjWu RUHdHNl2LFs2WUWaqYrnCnTb ILC6QjT2HHK1kMTcgX4afEuk bjog kR2jT2AaZWBlslmvDw94hE1l UdXkNxG9NLflHgc+UEFSSVNI DFSHZC6BZJW4O3HfFln1OROm dHls UW0ceRXeUIwzSd8naQxocHiq MB6yEOHqdhjbNPLkrS1qEJBn eNTlsMwcCC7xORMqhcjqg522 OiAx IHD9ETGvbMGeM9AwrR6xHmRc UNBdNQTqG6UssCOeSOsyJ807 UXuqXbL4PRJbpjSlY9OjVGKy aWdu OoR4j9K1Vh4vFs8hLH9kBQxh KL73WA35eUCzr7A4lJJ2X4Hj DPCahvlzsgnhkIJ1TOIbCRXm aW47 nWKkVZecIs9ge3U1z367XWWt OVXbkA04Gk1baCkvJJJjzHKZ vH8guvimc2snmgiwEdAaWCJh MDt0 OHz7GCBaaHahWfUjGCH9FsH2 RME0jBQvhG8lhEknjnwzfR4l Oyc+VKRrLRAqciT5U4FgMev9 ZCBz aZsfQV2ahDEnSFweDv1wnDni kRwlIV4fRWKpzcjaFXEeaH1v GGCtsVEytGfjQZ7lHREvjmmv b250 ZiCpTNP6GPIvnZVdW2FcrK4m AhKyVAAtMCYnE2IcuMSjFDsa B906XNifEnI1WKYlpmZhR6Dh LWFs cRfqLaZ5u9W9Cf1ATX0ukIC4 M6BjPeg2ZFEzzKyqQV9juRBc LRloQh8eiRkcoHwyNO7pKTCm bjtw RIVdvE5hPQElpSKnrAglPU6q AALfjyeut202KqSlWXT0UQIr mEFqW1QonU9kYyLvRICnGWQc O3Rl sBOxATwvS457BIhjFtW9HUMd scGfA2OpPKTngRpuPjM7m7W3 Hv8CeWEaFEErSO23FA89DE67 L3Ry PjwvdGFibGU+PHRhYmxlIHdp LFEyRXnfYBVsMsKwwDiyKN5q Va1oWCRjUJBxySbuoVFqAkDv b2xs OONrTRidEE5cwOffE6MmaSN1 HARnd1a9Wo84T15lG7EhiNC+ HQHffKW0aXD9kT9iBbSzWsN2 YWxp C048KvMqsRNmSqpvy2vok3eu gYw7ArAkMFIgddVwnXniUPS5 m0JrOi18G28jQIdgIOWpXRUz MCUi HIBviXagie7ccB4qRy0+PGNv zGK0fTR0jX8gQmVuNlD7FNzp W608VgGtyPFsIthpS72eX0Wf dXA+ HJNqIim1CTPmlDizOK4zeTUf CFheFj4tXDG1JwQcToHnAHrl I2JeKYYiiqczngkuyHI2OCLr MDUw oX89Hn8meUirWw1eBOCdMKE8 KQRbuURiF7SknF2sWpIjCFFd IGHoU4ZfsVTyTGuxE697TTcp ZnQ7 TKBuleQuM6SxJBLcgBogZmR1 k7E1Hi4DaQdgkMBdNK1hAlTs RDx1W0CuIat5UVEcnPnbHV7r cGFk GXglHh4gdViblLglID6fAICz empml665QeMzc5idVZTapZQx SMxlVMJ1T52rr7T7AYUsHCDx MDA7 lAH9hR6xlKlzmpogaIVrkGen vwEutMuwWYbyVAayV060DDVg kJkxDfQQDxz3C6OyHue6PKKd dHls CE5tlEGbKQpyKj4vtLjzlIcq PQ8lERPehkazi063YxJbe0os XVRchQEuULkwRHV1R11kr0B6 ICMw EOSfKGM9zGB1dU7wjMvvagwf bGVmdDsgdmVydGljYWwtYWxp D801DSGbaWklSn8HNam5G4Ax Pjx0 TPEshXarBL4gxQExYXozHz1j jUjekRtxLP7lHQVmjsfii759 ZxUqi3zvYCViuNIlINjlQMY6 Y29s z4Q8RVWeALSqFNE2jWN5wX6i bGlnbjogbGVmdDsgdmVydGlj AYngOXffI072JNPljVrdLvHu eWVy OjwvdGQ+RR12zp30O6CoRvue Akc5RGAlAIX6zSN5oO9cTNXf NUlxa4W2zOA0C2EpfqSyyb8n b2xs YXBzZTog (more content not included)... Normal [facility] Consent for Treatmenton 10-19 Consent for Treatment [id number]: 127 Normal [facility] Creatinineon 11-16-2022 Creatinine [Mass/Vol] 1.0 mg/dL Normal 0.5-1.3 [facility] Comment on above: Performed By: #### 2 690363, [id number], 3392175, 0861217, 23763084, 7173623 ####[facility] [address] [place] [address] Glucoseon 11-16-2022 Glucose [Mass/Vol] 104 mg/dL Normal 55-199 [facility] Comment on above: Performed By: #### 2 920686, 8559789, 6425971, 0441012, 62584399, 0505081 ####[facility] [address] [address] Lyteson 11-16-2022 Anion gap [Moles/Vol] 13 mmol/L Normal 6-16 [facility] Comment on above: Performed By: #### 2 956300, 8641585, 8191689, 9404459, 84778033, 0392231 ####[facility] [address] [place] [address] Chloride [Moles/Vol] 99 mmol/L Low 101-111 [facility] Comment on above: Performed By: #### 2 877736, 4343546, 2728207, 5201442, 27161064, 8963571 ####[facility] [address] [place] [address] CO2 [Moles/Vol] 29 mmol/L Normal 21-31 [facility] Comment on above: Performed By: #### 2 446328, 2849506, 6439065, 1977485, 13595690, 3206510 ####[facility] [address] [place] [address] Potassium [Moles/Vol] 3.8 mmol/L Normal 3.5-5.3 [facility] Comment on above: Performed By: #### 2 441722, 9590616, 2142381, 4678073, 05120225, 7799872 ####[facility] [address] [place] [address] Sodium [Moles/Vol] 137 mmol/L Normal 135-145 [facility] Comment on above: Performed By: #### 2 608657, 9679423, 6082359, 2834740, 76735325, 4488152 ####[facility] [address] [place] [address] XR Chest 2 Viewson 3 XR Chest [...] mGy = na DAP = na Normal [facility] eGFRon 11-16-2022 GFR/1.73 sq M.predicted among blacks MDRD (S/P/Bld) [Vol rate/Area] mL/min/{1.73_m2} Normal >=59 [facility] Comment on above: Order Comment: Order added by Discern Expert. Result Comment: eGFR is race adjusted. AA=. Performed By: #### 2 145825, 0474752, 9479828, 1605516, 91090847, 2280694 ####[facility] [address] [place] [address] GFR/1.73 sq M.predicted among non-blacks MDRD (S/P/Bld) [Vol rate/Area] 58 mL/min/1.73 m2 Low >=59 [facility] Comment on above: Order Comment: Order added by Discern Expert. Result Comment: Cushion Cover Inspector stefan kidney disease could be indicated at eGFR's of less than 60 mL/min/1.73m2. Kidney failure is indicated at less than 15 mL/min/1.73m2. Performed By: #### 2 090125, 3131399, 7021388, 4828145, 87767515, 0788505 ####[facility] [address] [place] [address] Consent for Treatmenton 10-18 Consent for Treatment [id number]: 127 Normal [facility] Heart and Vascular Office/Cl inic Noteon 11-13-2022 [...] intact- no rash or concerning lesions Procedure [facility]- Dr Fragoso 03/03/20 CONCLUSIONS: 1. [...] acceptable to proceed with surgery. Follow-up with in 6 months time. Call office for sooner appointment for new/worsening symptoms. Follow-up With When Contact Information Will WALSH, Elliott Grewal Within [address] [place] [phone] Additional Instructions: Problem List/Past Medical History Ongoing [...] cyst, Hyst (more content not included)... Normal [facility] Comment on above: Result Comment: Elec tronically Signed By: Cady CALIX CNP\.br\Date and Time Signed: 11/13/22 11:39 EDT [facility] November 13, 2022 Re: Keturah Herrera : 1970 The patient, KETURAH HERRERA is predicted to represent low risk of perioperative cardiovascular events involving the planned podiatry, non-cardiac surgery. See attached testing and/or office note. Cady NIEVES [facility] Result Name Current Result Heart and Vascular Office/Clinic Note 10/29/2022 Normal [facility] US Abdomen Completeon 2022 US Abdomen [...] Arreola DO Transcribed by: MERLE Technologist: JOCELINE [facility] Consent for Treatmenton 10-18 Consent for Treatment [id number]: 127 [facility] Coding Summary.on 11-08-2022 Coding Summary. CD:[id number] Ww+P GhlYWQ+SU5MFTVmI21ojUNxy U9aJ9NCACmJRjftORFFBNoNF rSwipUhPK1yzYPkRIBb IC8+WG8mDKJvYhtlkZOzd7G0 dEG5T35vsc0tJZyfnTX0KFNl ItVeagecx5rngZo8CLmxOuua OyBt CTJxvY52TTT1nC90Yw76jVHg rNPzo0jwoQy2HnIbKAEuAMA8 dTxqFEask8YxZHHuH11xaUGh c2U6 DBCanOtmnSQuIzUrzZW4wW7v PVutfhddd3qalczqJtc6ms85 tFAku2E9vIV1T3PwysY5BNRg bGQg BovzrOGUbC6rdsfbs2xpstlh HoUbIUNzFRt5RNq3VRVpqKdv IxYyHD98LUW3OTAitrTvE3Rn LWFs xVahCyN8p7L7Vu8TV1GOEysi K3JOLJXIMBzcjFG+IT83fq26 F0IjRfbnBke0MDEgRAD3dEV3 aD0n DXTfHZvab8I2yXB2W4ObijHn dt0ww0zjUOZbIKlbS67weQUz m4N9XARtqPN4XGCcqRkeMoJg aG93 Oyc+MFMhhHplv8KvCjkjs0ti t4sndXo4EhtkLLBsjcRwoUdk HPG9v7DeLz2mJKNnmOT0uKL3 aD0i ChAzTpQ2AFqcO496VdGrhEKl YxjdP92uS1JieIR+PHRyPjx0 LPVryVklEP9lM4HqSPIqhhtk bGVm qQngOR5zZEQuknppOBQstR4z EFSfC3z2GjMoCkA6FRacI4Ma KQMbzelzJu01pW0aWdRnQeQ5 MGlu C6LvwjW9WVWtmVDjPNuuJCB9 Y27hn0A2FORpLEIeHNN5sGD5 rN5wkMswrhqcoDWqrZdjgaYv dGlj OZgjWOknE815BPBmjNmqJySo ZGluZyBEYXRlOiAgMDMvMjMv MjAyMzwvdGQ+NLTdPZU5fQbj PSAn oXVvTVezYe5jzBelxGxnPH0v WFXbvbvsQWHdjJ5hOTUdyMEg cNodKM4vWPUabgswy676YoAy MHB0 LVVfbUGxV2LmvR7mYuOcAUIi DLVyJ6HhmEFaRJauU429MFgo YcC5SUOupsFfS5FgUSNeqWlx OiB0 r3Q3Yt2Wx3KowitrH0MhyRAz OiDgZhmeONn4E2KcJmyeyNV+ FH02DBZkSE02ODe6XDF7nPta PSdi FNIkC1MiyE7gWsTjLRGjEOSr Oyc+PHRhYmxlIHdpZHRoPScx BZJxVkNcqVabLF1oZw9kUIMs LWNv oWmprTQqAuCsv8vvXBRxBDkw LD9cjZnuO2VlxKT7THJko4z0 Dk98A26tB9PrlZO+PGNvbCB3 aWR0 yC6xAcUzEhU4SEvtJ331WrDw eKLbBfsll6weu2brtAg4GyP0 SQDkgrNdvZzfTCU6b9MoHq10 Y29s IHdpZHRoPSIxNSUiIHZhbGln jv9zyN2vDo1+RHWblAE7nYF7 hK0eVxDhXeT3HRcdL071JgXl cCIv Hfvzl7cjx2tjqOj0JuLnBRWg drQeeDtwPLD3h2YvTc45U3Ll eAhnh8YqKch3tm65iTYdo6Y1 bGU9 P8ExOHLlyildhQMcxBhpUA2a TMXjcacnMAVdmT6fPMFuT4j9 DqKuSaB8CSpuP7MbmrE4RKBw bGQg EUNqiFTMbK1shmgzh8ycyoqx NwFuIEIkIOc1KBk7UMIhdExs VlMjFZL0LsO5JGN6oKUzrA6g bGln nrkfvA8iDai+FPP3aMIcxKTS JP8nHzhrsQT+NZQsMLG6tLtp YYiiTBVrvB6vXHDzS3b7HeTa LjA1 HWhpU5TfqgZ1XZCjqRHeVAPn cXIRuU8pngesm0jtybdkEjRf ZOVlYLi9CRy7VGOmvCxpMuRf ZWZ0 LgX3OWF7mCDsdV7reXykrfan eI4dEqm+SmqehGjpPQR1VPm7 P4AvGiw1CTJemAxkEY2auJSf ZGlu Bv5ntBumpTnvFD7rGANggxqa p106UyBao6qyKBEnpPJyWFwi HOH5K51es4H7OHQgMNOoFHJ1 dGV4 iE2jdEacsrfjaKAaeMgkkdWk jKofIFtlPBuaD718BGXefQtv LfQzTVp4H4PuVnw6KLFrsRqj ZT0n eADoUUffHe5xfVhjlNfcPO7q NXKxafzan368DsVss2kiYIAm yDFpICybABP2X73bh0P5DTYq MDAw FLW6rLQ2lF6tpXfsbibtfZYo jEzrawVgoNfaRMjjMXuzE548 KULeaEelYtAlsRd9N3CqAqx0 ZCBz eCzaUV5dsJZiDWftUh2ldRdr lKywKY0sPWSpiagrp665QtXs a1ywVZPvqNLyXJuqORC6Q57f b3I6 GTHxSGIlMKQ8oTS6dP6brUmi bjogbGVmdDsgdmVydGljYWwt VOuvC358VVYqjRukEbNiiZsc bnQg BBwuZSz3N2DkShjkrBP+PC90 IEBiDH13uHIruSQyj1yzpWo8 MuFbYHXsYWB1oWczSAsox6Qu ZXIt J44nnNJes9E9CBWvcKopuJBx MmLvzJS7wA8jVGsejlhox0ua glrnXsbeo1kvps69zZ76F97h IHdp SRQeTJKnOQKwDPOtbXptbi0a nI5uPi3+ZFZuoHF5yCY9uM9w AKWqIjA9NAlrM382HoJjjIQz Pjxj s9qkc8isdKm8QeK7IHTavuTk fOesBOE1x7TqIh60X41aLLas SFMyCDMdTUBwILNaeVauai9j dG9w Ii8+FDOvuET0qNV9iE5hDyTg DcC3TQdiF561ZbWvcFYcUtrh I50eN4IqsQB+UINxXal6BJIg dHls MN8hsTZzFJqhBs0rWHV3UrJg NlIvXCdoX1NjKWOrdkvzpxhn lUG7XNLtARMjyT62Du5lxYpe MTBw sBQBfQ7qzsbgn4cepwxfOsMv GMHdKBv4OIv5RLFteYqbQqXe JNH0PlL3OMI5gJCqaN6syMyj bjog bJ9jL9CtOFUznhryBu36wY6l HjIcRgW3EXxpOiy+UEFSSVNI GPPZUG9ZMCS8M3JgOqj6NXVh dHls PG7wpJErFApmDu2vkLybdYvs YF5aDEJyjspkJNYvyX8mKMFq uIIsvVrwEG7oGYMkqgewf603 OiAx LWA0TOGfiPVwA5SupY3lHqWa HXKsJELtE2QpxEQkVGdrQ984 DGsbOxP6DODrfpSjS1NvFDYj aWdu IuL7t5E8Yt0pNm4yHV4zUQlb JE77XY20dYTuk1K7lRO1Y7Wq OZUqiltqvblmwQB3ENJfZPAk aW47 gIWwZXnhRf5nq3M7r945JJLj UQQvjB22Bi3rrQzbNGDqiJPK zC2atwjjf8qoxmtvQqPfBJEl MDt0 QUl5WICofKtlUmIaINS7CzR9 NCQ7jCWatW2ezOspoclvpU8a Oyc+VWEiDANmkbQ9L6NmHuh4 ZCBz zDgtHQ8zzJHmSUjvIs7nqLxv nYpvAX7cTYVuxubgAUZfoQ6x WURloNBzzUuwGF4mGSGtilme b250 DwWxDAA0QIUqiKHeK4CbvN3a WzStFUOmGTJrI2JakQEfLMww O441QJxtJsB4VFQotvRtW0Ty LWFs bDrgJjW1a7K7Co6DIF1dhFO7 H0NsBxx8CAMohCanHF3gbMDu GBziUa9ylTyjmVoiQB2vUVYx bjtw YWKziF7iOZHsmBQojNjsNI6b AKGkriduv505GrCeWDS7JNZr lYIfB4GekA5qCaSwLCGhDBKp O3Rl uAKlNNmgI380YXsfOuP2IRXy sgExE9SkVUDleTngMrV7q5I1 Em5TmZDkNNAoEY69AL62WW08 L3Ry PjwvdGFibGU+PHRhYmxlIHdp USGlUDrgOHAbLeIreGeoSJ6g Gh5fYLMmNEJkmQcbuQIfTkAo b2xs QJMwJYgtBG7miRtyU2LxePL4 QPYzk5k2Cx79O28aP7DhuWL+ ETJoxLA7iGI4dR1dKzJcTbD2 YWxp U025GwCxpENxZxscm0pqp3hk wRb8FcPfSSEqahCdxLmaOXN8 d3PkSk83P66lSFpfYBLgIFCy MCUi JZRpqXtwih8iyM2cFo0+PGNv lPR1xMS0eC0sAbIkIyH1UIap Y184ElDioNWvOhliC12qL9Ba dXA+ VOLtXxc2AITvhPjcIT0eeGHg YLlqMz9mAJV6VyLkGkHoJNgt S4FjFNDaxqjuqyivzPI1ATFi MDUw xT57Iw4oqOmcEo6xJIFcEHQ3 RBIslCLbF9FzgM3wTvYfTUHb TVYzY1RzyWTyXQnsC091ZCjh ZnQ7 KESwcgEfG6WlXRXmuXlvClB2 m0W4Lj1YcFhdmIWaHB2gOsCm XDu8Z1CkLcm2IFBucDgsEU1u cGFk LLdmKz1qoHsnyFdwTF8qHESg uctms873VzTno1pdBFDqyMNm FEvlGCF0D81rt4E8SBSuIPMj MDA7 uBG6nH3ypXxkehcxpQDxqOxy rdDknNzuFVpnGRdiB077TLJd zRnuHhYDVyk3W1GgHeg9YFCu [facility] KX5jaEMnSYqdLx0ujBatcKpn EK4sRSIiicrri948JkRpw3wd VTZdxTJqKTydBLO1O89et8M0 ICMw ONKlCHW7eBC6jA2oqUqfbsed bGVmdDsgdmVydGljYWwtYWxp U323BBGzrErhPp3TLzn5K0Ov Pjx0 UCIjsRoaYQ2krPLvJJyvKp4s fCjunEnuBV4oQKMhmmabn787 QyJvt5qjOVSsqKXwYUwdTGM2 Y29s n4S1VUGqQQJdNJJ7pMA0tV0g bGlnbjogbGVmdDsgdmVydGlj FNfcXDufA066VFLskGovIpRn eWVy OjwvdGQ+KD82si20R9OuDezm Jtm4URDfHOH2aPJ6wJ6lBAEh CUrrt3J6mMM5O6UbolFsrv3e b2xs YXBzZTog (more content not included)... [facility] Consent for Treatmenton 10-17 Consent for Treatment [id number]: 127 [facility] Heart and Vascular Office/Cl inic Noteon [...] py, Esophagog (more content not included)... [facility] Comment on above: Result Comment: Elec tronically Signed By: Will WALSH, Elliott Russell.rosi\Date and Time Signed: 10/30/22 15:48 EDT Physician Orderon 10-30-2022 Physician Order [id number] :127 [facility] Reminderson 10-30-2022 Reminders - From: Jess Carty To: Felisa Ruiz; Sent: 10/30/2022 15:53:53 EDT Show up: 10/02/2023 14:53:00 EST Subject: [address] up [address] Solis (October 2023) Due Date/Time: 10/31/2023 15:53:00 EDT Reminder/Recall [facility] Reminders - From: Jess Carty To: Felisa Ruiz; Sent: 10/30/2022 15:53:24 EDT Show up: 04/01/2023 15:53:00 EDT Subject: 6 month follow up Due Date/Time: 05/02/2023 15:53:00 EDT Reminder/Recall 6 month follow up with Cady (2022) [facility] Ambulatory Visit Summaryon 0 10-29-2022 Ambulatory [...] Appointments Saturday 8:00 AM EDT With: Where: [facility] Saturday 3:00 PM EDT With: Elliott Solis MD Where: [facility] Saturday 2:40 PM EDT With: Where: [facility] Saturday 2:40 PM EDT With: Inessa Grajeda CNP Where: [facility] [address] [place] [address]- \.br\ You Need to Schedule the Following Appointments\.br \ Follow Up with Inessa Grajeda CNP When: Within 1 to 2 weeks\.br\ Comments:\.br\ Following colonoscopy.\.br \ Where:\.br\ Medications\.br\ What How Much When Why Instructions\.br \ New bifidobacterium infantis (Align 4 mg oral capsule) 1 Capsules By Mouth Every day Loose stools Duration: 28 Days Pickup at [facility]\.br\ New famotidine (Pepcid 20 mg Tab) 1 Tablets By Mouth Once a day (at bedtime) GERD (gastroesophagea l reflux disease) Duration: 90 Days Pickup at [facility]\.br\ New loperamide (Imodium 2 mg oral capsule) 1 Capsules By Mouth Every 6 hours as needed for as needed for loose stool Loose stools Duration: 30 Days not to exceed 8 capsules, or 16 mg, in 24 hours Pickup at [facility]\.br\ New ondansetron (Zofran 4 mg Tab) 1 Tablets By Mouth Every 12 hours as needed for Nausea/Vomiting Nausea and vomiting Duration: 10 Days Pickup at [facility]\.br\ Unchanged albuterol (Ventolin HFA 90 mcg/ [...] if questions or concerns \.br\ Pharmacy Information\.br\ [facility]: [address] [place], [place] [id number] [phone]\.br\ \.br\ What When Comments\.br\ Stop Taking omeprazole [...] Tertiary contraction of esophagus\.br\ Urge incontinence\.br \ [facility] Gastroenterology Office/Clin ic Noteon 10-29-2022 Gastroenterology Office/Clinic [...] indicates patient was [place] [facility] [place] for flank pain and was treated [...] revealed norm (more content not included)... [facility] Comment on above: Result Comment: Elec tronically Signed By: Inessa Grajeda CNP\.rosi\Date and Time Signed: 10/29/22 15:11 EDT Patient [...] added (diluted fruit juice). ? Eat bland, frkt-qq-ucnrjv foods in small amounts as you are able. These foods include bananas, applesauce, rice, lean meats, toast, and crackers. ? Avoid drinking fluids that contain a lot of sugar or caffeine, such as energy drinks, sports drinks, and soda. ? Avoid alcohol. ? Avoid spicy or fatty foods. General instructions ? Take ttxh-cju-zszwzuv and prescription medicines only as told by your health care provider. ? Rest at home while you recover. ? Drink enough fluid to keep your urine pale yellow. ? Breathe slowly and deeply when you feel nauseous. ? Avoid smelling things that have strong odors. ? Wash your hands often using soap and water. If soap and water are not available, use hand marble mechanic helper. ? Make sure that all people in [...] recommendations for eating and drinking and take hxfb-mxh-rnlyzpa and prescription medicines only as told by [...] 09/12/2005 Document Revised: 01/13/2019 Document Reviewed: 01/13/2019 [employer] Patient Education ? 2020 [employer] [facility] Giardia, Direct, EIAon 10-25 G. lamblia Ag IA Ql (Stl) Negative Invalid Interpretation Code Negative [facility] Comment on above: Result Comment: Perf ormed at: [address] [id number] PhD Scarlet Montemayor Performed By: #### 3 [id number] ####[facility] [address] [place] [address] O & P EXAM, ROUTINE, REFLEXo n 10-25-2022 Ova and parasites identified Concentration Nom (Stl) Comment Invalid Interpretation Code [facility] Comment on above: Result Comment: No o va, cysts, or parasites seen. One negative specimen does not rule out the possibility of a parasitic infection. Performed at: [address] [id number] PhD Scarlet Montemayor Performed By: #### 3 [id number] ####[address] [place] [address] O & P Exam, Routineon 2022 Ova and parasites identified LM Nom (Unsp spec) Final report Invalid Interpretation Code [facility] Comment on above: Result Comment: Thes e results were obtained using wet preparation(s) and trichrome stained smear. This test does not include testing for Cryptosporidium parvum, Cyclospora, or Microsporidia. Performed at: [address] [id number] PhD Scarlet Montemayor Performed By: #### 3 [id number] ####[address] [place] [address] Coding Summary.on 10-24-2022 Coding Summary. CD:[id number] Gh0b Ww+PGhlYWQ+IN8NTGWsK40lo VHpnD6aW8JFWDcNPrmyIRHRT FsWUwWaxaWvOP0kjTBtRJVu IC8+JT1oCAIvJuudhYUgr8X2 cGK8W70aue5iEVkanHQ8IOTv UmDwzpmfl2fhsMb1GCuoVjiu OyBt UKYxqB86FJU6yN58Iw56iJKa zFSeq6gcmRu2QhJpUGYeRZX8 yDamHUfjq2CeMTEnF36mvXAk c2U6 MPRpiRpfbMVoRgNgnSB9cB8f VPtwedyph7ruoqndVvi0ya09 oYNfk3S6eIY0K2CqxlK1CSOn bGQg HjzoaIJGzI3vdfwvj1nfrlsf LoWbCSVvXKc2PNi4PGZlsHjq FoGrWF92VDY9AMUrguSfV8Iy LWFs bKvwGvX4o4A5Ci5WH3FVIpnw Z7LFHGCDUSmzxNK+PJ04jw32 G0JoMfexCnr2LFWqZIC1nQR0 aD0n PIGwBLzvj1U4vIZ7T7HnflOe nq3lm7kmPOMbMEjaK16tfCOb l2Y3BHHcwSS3DJOowBjmCbPj aG93 Oyc+FNRbfNyqa7OcTyoqb9ah m5drpPg8ImacOQRkchQqaVef RYX4m0WhGw8rOUHaqJA9yPV3 aD0i QbHoHvD8KJxeY554UhAajXKt YyxsB24tS1MdaCU+PHRyPjx0 SZKelNplVF7dW8TrLXGasgxe bGVm iSjlZH5wVPNptuubYNYeyE3k ATHoS5f8ZxGzHgH7VAlcI4Vp DWDnnnayFu10gU6jQxDdBmQ3 MGlu V2MidmK6OQFbfMNxBFyeERO4 R70nb8B5GZLaHZRbBVL9qYX3 vX8dlCsjfjalqKVepVvhgqPn dGlj FLlbRTemG397QXMvzHonIlSc ZGluZyBEYXRlOiAgMDMvMDgv MjAyMzwvdGQ+TQJsTPZ6vByr PSAn iNJaDToxWr8bfDnzbLawAU9i MVHsgzlpAOUylY2eBSLadBXl rHsjNU4hEKDowhojj434QuWf MHB0 SEDpkZToB0IcbB6gDaXoLOKy EZNfD9ZyxGWxJYgcZ407VObk EuQ5XMIwkvBcM1JxXXZfhGlv OiB0 e9W0Yp7Av9MlzsloZ1QmtDUt NhDiFtbjWSq0V0TlAdwwnLV+ OE92JNLvTK23BTc5VQS3rSpp PSdi CPZiO7MdbN2zNqJhVYWjHIYl Oyc+PHRhYmxlIHdpZHRoPScx SORnRuIucHjhDP7sVm4oPLGp LWNv kZsrbRFrNrOud0nqXMYtHDvo DI5ytFxzZ1CdtQU1HTXdr2u0 Rt96B85rH0ElrBO+PGNvbCB3 aWR0 fF3wNtLhBbW8DEzcJ541GbPh gSPuDsmks7ltv7jhaNk4VnQ0 TUQngxLuqIyeDNH9y9LiZb76 Y29s IHdpZHRoPSIxNSUiIHZhbGln eq4ruA1oKd1+NNWuhFO5dVX6 tA0zLiOuOnZ6CSmuF079KuEl cCIv Gxvph1zyg1qhsZl0UzMoRWHl zmUfqDpeCBK9s9TyRq81T5Se fCkmm5OwGiu1ay37lASwv4Q0 bGU9 B2JgGXMihsilmDWdhDxnXW6m LFQhjqruTDQxmD4eSOPmT1x5 BnPbVqJ3DCkqN6DwmbB1IAKm bGQg ROGafGPCnB1eajfns4ncqudg FmSnWQOlVPb2VJj2UVBtsJxs VaFkWGJ6UfY0WMX0fTAthX1q bGln fpahjM6sMaf+SWF9bSPnnSNW PU5gTqyjwOL+CHZbFIR4nSbj LNjsOKGvaB8tCNCaG0j8BbBh LjA1 TUvnC9KuamT1GWCmcXDoBZEk pCQQtQ9ucqukg0sdqtexRwDc RLMmVMl3QXh8NIKlpFddCbUh ZWZ0 UvU2RSU9yFSzfQ4obPhbeebt sF0tUjv+WqauhRqdRKW7MPj3 O0BsCrn6GFKkmXhsWX7wrZGk ZGlu Is1fgSfugTtvRC3cIIBvaevp i031TtNva3ogVESyyOWoGHyo LTI7C83tf7K7MDXfVGOcRDI5 dGV4 qQ2xyIkclnzaqPImdYzvbxLm yYbqWKzsVHwzN075NKHwhQsz ErTyKLe5U4WfUjt8FDXjuLsu ZT0n iKWdIUbzCf1fyEskxRnlEU7r LITfkeexo648YtSjk8fvUZEq aPDaHAmfYSW2U45go0S6COEf MDAw MGZ1jZL2iX5jvGbofkekmXMb sSmcfgEemAfzMWjnNUkvB273 MXLjqGloNzVijMj7C6GaNgt8 ZCBz cFrhYZ0tfCZdIDrzIy1seDhf mEreIH9iTBYuumfaz933NpRc w3omXKZauPEwAQwwYNH6P62w b3I6 JMCyLCNnJWD4wBJ4vB6eyRmx bjogbGVmdDsgdmVydGljYWwt IYflO787AITftEksMxWopUgs bnQg DNznZKx8X9ReAayqoVO+PC90 AXIdVA50yKWinQJzs5aenHd7 AsBkQDTcVJH4bHyhDCjju7Au ZXIt A57srCOse3C0NEAfoZmkrQVj ZyYrcMO4aH8iSZvqbniuj0zl aoqzJzttd8sbdp54qH43W66u IHdp MVTtDXCbHWTcCVXjpAaovd0c vS2dFg1+XVHdfOH5zBD9jZ5i OLCgXfR0TGynP823CkEymRNl Pjxj q2lih4fpjKd4MvI6AXEgnwTq gUnbRXT0v0GxHp93H95oZVzq BYBcYWIsODYrOGXyqImxle2w dG9w Ii8+LPCdaEQ8uPZ3yJ4xUyVp WeO1HSkxQ562LvTidDRoPifa U92nS4QtrAM+CGJxNch6HTBl dHls PE3duVFgZHivRw1jZLM9WnJa QtJaKAioC8QjVFEljfubgryn kGE1VCAmLHPfqW53Dj8dwTxv MTBw zWUMfE0cmhocm5hjiuxcPvJa UPCsTDl7LNl6DLCmeCvzYyUj SAG0OiF7HKK7nPCmhH7rcZmd bjog zQ1wD5GuUEHsooteNz73iQ3u KaQpOlO6RGjkKgh+UEFSSVNI UQPBCU1WAEX8O1XqMkx7VVLf dHls QG3gvQNoNPohDm5xrXgunGtw DM7eRUEjactsSNZemF5fPTDc zGNvvOmxTL0oJTWlixxju809 OiAx FDK0NIZnhSTpO2FkgZ5sXdDj NWAbEFIuW6JhlSYsEIcrR073 HPukHfH7SMYhpuNsS7DaUSWl aWdu KqF3u3H6Lg9hEs8hGJ5tGXpv BP73HJ18zPTdu9I9kBS7M0Ar GNHzawnqimovcLR2SOMyYMNq aW47 iLGuHFmdSc9rx7K3l569FVCs KLEreG42Ik3weLcqVLHjoPQG sX8vioyuf6xdwpefXwSmAEOy MDt0 GQg2DGOfcXuaIkYpNBO1EmQ9 RNU1fCAtdR8swYmajzgtlA1a Oyc+FKGwRSAgifI4I7SmTdk2 ZCBz eSldHK2pfEBgIGysNr0gaBpd eYujLD2vXCEpygrkUJYhhC3n YHNqmTDzqEjpOZ2zWUUzurmv b250 RwQvBUZ7NACckLNjV9EzdN3g TxNbGUEwCIIsD6FqiOUkEJxm W276REsxSxH6QGFeylQqS5Sw LWFs sEsqAnK1e2B1Tj5MAZ8otDV0 V2JuNoh7MWExuRogYD6esBOd FAhxSc6pmQhsrZkwAY6aWHBe bjtw DUIhjJ3gNMPsiJEamPozEI7i AFUjofihs494GbEfGAT2ITNf xKExD2CmzG1wXzVeZVQwSWSm O3Rl iUJkSDuwE868DCvqRaQ2GPBe xuDkC5KhOYJwuTdjJjA9w5M7 Vc6SbNDbS8MhE8b7K5FsYgbf dHI+ KG06LRHyMO82vGIwkMXcx3gm qUg3JuTuXSInWCD9lGeiSRtt u1GeVLHuP31zkZYty1G0TSRa bGxh mALeQiLjaWB8qH1tVLytdual a8ainqayJopfp8nmww82hE53 N69sSTqeLWSpLUHlSIUrPJEo bGln mq1hfB2wYg9+RAPxiEX4mPE1 aD7wWyFmYeE6IEujX965ZfCs jXJjNvjsj3flb3rulDf6BgWr JSIg edDvqPtpBAF4l9KlCw77Y70m IHdpZHRoPSIyMCUiIHZhbGln cg1iaX7hDo1+DO3gl6cdho73 cD48 dHI+DVWpRZF3lGaaZBedRDVk eB9xKYshToU7SFYwRqCblJ46 pDGcUUclYv0hyOribBxcKP9g NTBp rqfcn671FaMbf4qeMHGtnNOp DKamMHU7D58ng9X6FZEnNWPp DPN8cWN7mY1wzTqllmoerXBs dDsg rvEdeTuxFIylIKweU022NUGl zOvcApTclVZyS8zuktXYGH5l OjwvdGQ+CMPbKJI3aFaiPCmo YWRk lY2rBJQhH2t3TaLhMpH5VZeo G5XtelH7KRGeqXSbCFVltCIR hW3viltwh8lsfakoKqTaCNIb MDt0 PQc0HHFdwMxqSjOkCNT7QsH9 QNL9cCBrlG9bbNixtdzlmZ1j Oyc+RklOOjwvdGQ+PHRkIHN0 eWxl YMzzBJBnsL6kERZaS7w0WgVo XtB0VZdjY1GfrgG0HTCnwEKx TWEliTMUlC7udzllr8pbbpqd IzAw BNHzBFm0OId2WNNsaCsfCjCu NMS9QvO1BHH1nIXwyS4olItd uihnsR7wFpr+TVJOOjwvdGQ+ PHRk SQP9zYvcTSqhRQRspQ2iSFOp B0c8JoPcNaQ0BOxrT0QqydC5 XEBldTYvZKGpkLQOwD7qtmru b2xv hnlmToFxNWSzGXl3VTo3POCu bPgsKeYkVRW1XoA9BGJ0kODx dE7aeCavdjlkgN7lIuw+UGF5 ZXI6 BP60QE34I8ZwQqyxjFJhhUI+ PHRhYmxlIHdpZHRoPScxMDAl IfWxtZahJR4bYh0aIOLgVXNw [facility] cHNl (more content not included)... Normal [facility] C Urineon 10-22-2022 Bacteria identified Cx Nom (U) Microbiology PROCEDURE: Urine Culture [R1] SOURCE: U CleanCatch BODY SITE: COLLECTED DATE/TIME: 10/20/2022 11:40 EST RECEIVED DATE/TIME: 10/20/2022 14:44 EST START DATE/TIME: 10/20/2022 14:44 EST FREE TEXT SOURCE: in MInicath container Santos Landry DO, DO, Santos Brink FINAL REPORTS Final Report [] Verified Date/Time: 10/22/2022 10:24 EST 3,000 cfu/ml Mixed skin contaminants Performing Locations R1: This test was performed at: [facility], [address] [place] [address], [phone] , , Normal [facility] Comment on above: Performed By: #### 2 771377, [id number] ####[facility] [address] [place] [address] Fecal WBC Lactoferrinon Fecal WBC Lactoferrin Negative Normal Negative [facility] Comment on above: Result Comment: The semi-quantitative detection of elevated levels of fecal lactoferrin is a marker for fecal leukocytes and an indication of intestinal inflammation. Performed By: #### 3 7012727, 51387034, 51292527, [id number], 56045343 ####[facility] [address] [place] [address] Auto Diffon 10-20-2022 Basophils/100 WBC (Bld) 1.0 % Normal 0.0-2.0 [facility] Comment on above: Order Comment: Order Added by Discern Expert. Performed By: #### 2 146334, 16150430, 6174674, 2288464 #### [facility] [address] [place] [address] Basophils/Leukocyt es Auto (Bld) [Pure # fraction] 0.1 E9/L Normal 0.0-0.2 [facility] Comment on above: Order Comment: Order Added by Discern Expert. Performed By: #### 2 370932, 14158656, 0214247, 8516069 #### [facility] [address] [place] [address] Eosinophils/100 WBC (Bld) 0.4 % Normal 0.0-8.0 [facility] Comment on above: Order Comment: Order Added by Discern Expert. Performed By: #### 2 532848, 61209413, 4779984, 7094596 #### [facility] [address] [place] [address] Eosinophils/Leukoc ytes Auto (Bld) [Pure # fraction] 0.0 E9/L Normal 0.0-0.5 [facility] Comment on above: Order Comment: Order Added by Discern Expert. Performed By: #### 2 390155, 41494435, 1843624, 6586248 #### [facility] [address] [place] [address] Lymphocytes/100 WBC (Bld) 32.6 % Normal 14.0-50.0 [facility] Comment on above: Order Comment: Order Added by Discern Expert. Performed By: #### 2 161678, 98682109, 3691666, 0635395 #### [facility] [address] [place] [address] Lymphocytes/Leukoc ytes Auto (Bld) [Pure # fraction] 3.9 E9/L Normal 1.0-4.0 [facility] Comment on above: Order Comment: Order Added by Discern Expert. Performed By: #### 2 944448, 49381731, 4459692, 4798182 #### [facility] [address] [place] [address] Monocytes/100 WBC (Bld) 4.8 % Normal 4.0-14.0 [facility] Comment on above: Order Comment: Order Added by Vida Expert. Performed By: #### 2 629476, 89498798, 7828442, 7773004 #### [facility] [address] [place] [address] Monocytes/Leukocyt es Auto (Bld) [Pure # fraction] 0.6 E9/L Normal 0.2-1.0 [facility] Comment on above: Order Comment: Order Added by Discern Expert. Performed By: #### 2 788281, 77438749, 6456860, 8340108 #### [facility] [address] [place] [address] Neutrophils/100 WBC (Bld) 61.2 % Normal 36.0-75.0 [facility] Comment on above: Order Comment: Order Added by Discern Expert. Performed By: #### 2 992555, 52556160, 8757051, 9392123 #### [facility] [address] [place] [address] Neutrophils/Leukoc ytes Auto (Bld) [Pure # fraction] 7.4 E9/L Normal 2.0-7.5 [facility] Comment on above: Order Comment: Order Added by Discern Expert. Performed By: #### 2 047267, 99887355, 6017160, 6755153 #### [facility] [address] [place] [address] BMPon 10-20-2022 Creatinine [Mass/Vol] 1.1 mg/dL Normal 0.5-1.3 [facility] Comment on above: Performed By: #### 2 274024, 15625426, 8288800, 3269971 #### [facility] [address] [place] [address] Urea nitrogen [Mass/Vol] 7 mg/dL Normal 5-21 [facility] Comment on above: Performed By: #### 2 005528, 49219359, 2065802, 9550876 #### [facility] [address] [place] [address] Urea nitrogen/Creatinin e [Mass ratio] 6 No Units Low 10-20 [facility] Comment on above: Performed By: #### 2 570716, 75928214, 2604035, 1283256 #### [facility] [address] [place] [address] Anion gap [Moles/Vol] 13 mmol/L Normal 6-16 [facility] Comment on above: Performed By: #### 2 025285, 66844364, 1145861, 8025406 #### [facility] [address] [place] [address] Calcium [Mass/Vol] 9.5 mg/dL Normal 8.9-11.1 [facility] Comment on above: Performed By: #### 2 876007, 87176028, 5362591, 4653582 #### [facility] [address] [place] [address] Chloride [Moles/Vol] 99 mmol/L Low 101-111 [facility] Comment on above: Performed By: #### 2 408200, 87914367, 3982178, 9679840 #### [facility] [address] [place] [address] CO2 [Moles/Vol] 26 mmol/L Normal 21-31 [facility] Comment on above: Performed By: #### 2 623953, 07204544, 0072456, 6529729 #### [facility] [address] [place] [address] Glucose [Mass/Vol] 127 mg/dL Normal 55-199 [facility] Comment on above: Result Comment: If t his glucose result represents a fasting glucose, interpretation should refer to the following reference range: 55-99 mg/dL Performed By: #### 2 674604, 92994536, 6676960, 5706925 #### [facility] [address] [place] [address] Potassium [Moles/Vol] 4.0 mmol/L Normal 3.5-5.3 [facility] Comment on above: Performed By: #### 2 359998, 86505941, 9737869, 4231967 #### [facility] [address] [place] [address] Sodium [Moles/Vol] 134 mmol/L Low 135-145 [facility] Comment on above: Performed By: #### 2 771849, 79963738, 4773605, 1885581 #### [facility] [address] [place] [address] CBC w/ Auto Diffon 3 Erythrocyte distribution width (RBC) [Ratio] 18.9 % High 10.9-14.2 [facility] Comment on above: Performed By: #### 2 326244, 07029772, 8987330, 0144839 #### [facility] [address] [place] [address] Hematocrit (Bld) [Volume fraction] 39.9 % Normal 34.0-46.0 [facility] Comment on above: Performed By: #### 2 405240, 22248113, 6820479, 0874309 #### [facility] [address] [place] [address] Hemoglobin (Bld) [Mass/Vol] 12.8 g/dL Normal 12.0-16.0 [facility] Comment on above: Performed By: #### 2 014660, 75159935, 5268843, 7069911 #### [facility] [address] [place] [address] 13096 MCH (RBC) [Entitic mass] 27.6 pg Normal 27.0-34.0 [facility] Comment on above: Performed By: #### 2 565601, 75159139, 2603785, 7680167 #### [facility] [address] [place] [address]306 MCHC (RBC) [Mass/Vol] 32.1 g/dL Normal 31.4-36.0 [facility] Comment on above: Performed By: #### 2 767169, 65261678, 0167134, 0091754 #### [facility] [address] [place] [address] MCV (RBC) [Entitic vol] 86.0 fL Normal 80.0-100.0 [facility] Comment on above: Performed By: #### 2 852618, 33280363, 3008029, 1657156 #### [facility] [address] [place] [address] Platelet mean volume (Bld) [Entitic vol] 7.9 fL Normal 6.4-10.8 [facility] Comment on above: Performed By: #### 2 927801, 86643063, 8305697, 7984870 #### [facility] [address] [place] [address] Platelets (Bld) [#/Vol] 249.0 E9/L Normal 150.0-500.0 [facility] Comment on above: Performed By: #### 2 532169, 34531777, 4122168, 7547880 #### [facility] [address] [place] [address] RBC (Bld) [#/Vol] 4.6 E12/L Normal 4.3-5.9 [facility] Comment on above: Performed By: #### 2 039027, 54019711, 3935296, 8247371 #### [facility] [address] [place] [address] WBC corrected for nucl RBC Auto (Bld) [#/Vol] 12.1 E9/L High 4.0-11.0 [facility] Comment on above: Performed By: #### 2 637264, 85926235, 5563194, 2392994 #### [facility] [address] [place] [address] CHEMISTRYOrdered By: SYSTEM SYSTEM on 10-20-2022 Anion gap [Moles/Vol] 13 mmol/L Normal 6 - 16 mEq/L [facility] Calcium [Mass/Vol] 9.5 mg/dL Normal 8.9 - 11.1 mg/dL [facility] Chloride [Moles/Vol] 99 mmol/L Low 101 - 111 mmol/L [facility] CO2 [Moles/Vol] 26 mmol/L Normal 21 - 31 mmol/L [facility] Creatinine [Mass/Vol] 1.1 mg/dL Normal 0.5 - 1.3 mg/dL [facility] GFR/1.73 sq M.predicted among blacks MDRD (S/P/Bld) [Vol rate/Area] mL/min/1.73 m2 Normal >=59mL/min/1.73 m2 [facility] Chem S GFR/1.73 sq M.predicted among non-blacks MDRD (S/P/Bld) [Vol rate/Area] 52 mL/min/1.73 m2 Low >=59mL/min/1.73 m2 [facility] Chem S Glucose [Mass/Vol] 127 mg/dL Normal 55 - 199 mg/dL [facility] Remisol Potassium [Moles/Vol] 4.0 mmol/L Normal 3.5 - 5.3 mmol/L [facility] Remisol Sodium [Moles/Vol] 134 mmol/L Low 135 - 145 mmol/L [facility] Remisol Urea nitrogen [Mass/Vol] 7 mg/dL Normal 5 - 21 mg/dL [facility] Remisol Urea nitrogen/Creatinin e [Mass ratio] 6 mg/mg Low 10 - 20 [facility] [place] CT Abdomen/Pelvis w/o Contra ston 10-20-2022 [...] Signed by: Johny Arreola DO Transcribed by: MRELE Technologist: ALEK Technical Comments Rectal Contrast Given? No Oral contrast amount in ml's: 0 Normal [facility] Consent for Treatmenton Consent for Treatment [id number]#[id number]: 127 Normal [facility] Discharge Instructionson Discharge Instructions [id number]: 127 Normal [facility] ED Clinical Summaryon 2022 ED Clinical Summary [place] [id number] ED Clinical Summary Person Information Name: JESSIE HERRERAMIGordy [facility] Age: 52 Years : 1970 Sex: Female Language: Uruguayan PCP: ROBERT GIRON DO Marital Status: Visit [...] 10/20/2022 12:35:21 10/20/2022 12:35:21 10/20/2022 12:35:21 ADDRESS: [facility] [address] [facility] [id number] PHYS DOC NOTES: MEDICAL INFORMATION: Prescriptions Given: New Medications [facility], [address] [place], [place] [id number], [phone] azithromycin (azithromycin 250 mg Tab 5-day Dose [...] Adult Follow up: With: Address: When: ROBERT WAGGONERCASEY [address] [place] [phone] [facility] () In 3 days 10/23/2022 Comments: Call the [...] worsening symptoms. (more content not included)... Normal [facility] ED Note-Physicianon 10-21-19 ED Note-Physician Basic [...] day(s), # 6 tab(s), Refills(s) 0, Pharmacy: [facility], 163, cm, 10/20/22 10:48:00 EST, Height/Length [...] ROBERT GIRON In 3 days 10/23/2022 EST [address] [place] [address] [facility] (1) Additional Instructions: Call the office of [...] for colon (more content not included)... Normal [facility] Comment on above: Result Comment: Elec [...] this condition includes: ? Antibiotic medicine. ? Mvya-arj-aewpucy medicines to treat discomfort. ? Drinking enough [...] these instructions at home: Medicines ? Take blrn-ojj-noqrhcu and prescription medicines only as told by [...] This in (more content not included)... Normal [facility] ED Patient Summaryon 023 ED Patient Summary (Inserted Image. [place] ble to display) [place] [id number] Patient Discharge Instructions Person Information Name: KETURAH HERRERA Age: 52 Years Arrival Date: 10/20/2022 10:32:49 Discharge Diagnosis: Acute UTI Primary Care Physician: ROBERT GIRON DO Provider Information Primary Provider: Santos Landry DO Advanced Awning Erector:None The exam and treatment you received in the Emergency Department were for an urgent problem and are not intended as complete care. It is important that you follow up with a doctor, nurse practitioner, or physician?s veterinarian assistant for ongoing care. If your symptoms become worse or you do not improve as expected and you are unable to reach your usual health care provider, you should return to the Emergency Department. We are available 24 hours a day. KETURAH HERRERA has been given the following list of patient education materials, prescriptions and follow-up instructions: Follow-up Instructions: With: Address: When: ROBERT GIRON [address] [place] [phone] [facility] (1) In 3 days 10/23/2022 Comments: Call [...] opioids can be used to help relieve pfvaogzs-ql-hvcxbv pain and are often prescribed following a [...] of unus (more content not included)... Normal [facility] Enteric Panel by PCRon 10-20 C. coli+jejuni+upsali ensis DNA REBECCA+non-probe Ql (Stl) Not detected Normal [facility] Comment on above: Result Comment: Test ing was performed utilizing reverse hand cloth folder (RT), polymerase chain reaction (PCR), and array [...] nulcleic acid test. Performed By: #### 3 6207667, 90781260, 36608333, [id number], 69451570 #### [facility] [address] [place] [address] E. coli stx1+stx2 genes REBECCA+non-probe Ql (Stl) Negative Normal [facility] Comment on above: Performed By: #### 3 6551570, 69271665, 76447468, 8221051139, 85809582 #### [facility] [address] [place] [address] Enteric Panel by PCR Negative Normal [facility] Enteric Panel Intrl QC Pass Normal [facility] Comment on above: Result Comment: Test ing was performed utilizing reverse hand cloth folder (RT), polymerase chain reaction (PCR), and array [...] 1 and 2. Performed By: #### 3 0152994, 45320908, 88736858, 1285038610, 03093906 #### [facility] [address] [place] [address]1557 Norovirus genogroup I+II RNA REBECCA+non-probe Ql (Stl) Not detected Normal [facility] Comment on above: Performed By: #### 3 7040563, 99644127, 66442646, 1912063951, 46725042 #### [facility] [address] [place] [address] Rotavirus A RNA REBECCA+non-probe Ql (Stl) Not detected Normal [facility] Comment on above: Performed By: #### 3 8236753, 61063112, 96660399, 3063085011, 70539245 #### [facility] [address] [place] [address] S. enterica+bongori DNA REBECCA+non-probe Ql (Stl) Not detected Normal [facility] Comment on above: Result Comment: This test result should be correlated with clinical presentations and medical history by a healthcare provider to determine its clinical significance. Performed By: #### 3 1516633, 70157237, 35242991, 7444259967, 59750083 #### [facility] [address] [place] [address] Shigella species+EIEC invasion plasmid antigen H ipaH gene REBECCA+non-probe Ql (Stl) Not detected Normal [facility] Comment on above: Performed By: #### 3 5131666, 70066183, 95416307, 9167231689, 68255465 #### [facility] [address] [place] [address] V. cholerae+parahaemo lyticus+vulnificus DNA REBECCA+non-probe Ql (Stl) Not detected Normal [facility] Comment on above: Performed By: #### 3 2042547, 04453751, 78375487, 5517111799, 09598334 #### [facility] [address] [place] [address] Y. enterocolitica DNA REBECCA+non-probe Ql (Stl) Not detected Normal [facility] Comment on above: Performed By: #### 3 0419542, 51266877, 31660958, 6970283593, 99935279 #### [facility] [address] [place] [address]57 HEMATOLOGYOrdered By: SYSTEM SYSTEM on 10-20-2022 Basophils/100 [...] 27.6 pg Normal 27.0 - 34.0 pg [facility] HemeAutoSS MCHC (RBC) [Mass/Vol] 32.1 g/dL Normal 31.4 - 36.0 gm/dL [facility] HemeAutoSS MCV (RBC) [Entitic vol] 86.0 fL Normal 80.0 - 100.0 fL [facility] HemeAutoSS Platelet mean volume (Bld) [Entitic vol] 7.9 fL Normal 6.4 - 10.8 fL [facility] HemeAutoSS Platelets (Bld) [#/Vol] 249.0 E9/L Normal 150.0 - 500.0 E9/L [facility] HemeAutoSS RBC (Bld) [#/Vol] 4.6 E12/L Normal 4.3 - 5.9 E12/L [facility] HemeAutoSS WBC corrected for nucl RBC Auto (Bld) [#/Vol] 12.1 E9/L High 4.0 - 11.0 E9/L [facility] HemeAutoSS UA With Cult Reflexon 2022 Bacteria LM Ql (Urine sed) 1+ /HPF Abnormal Trace [facility] Comment on above: Performed By: #### 2 419359, 84323471 ####[facility] [address] [place] [address] Bilirubin Ql (U) Negative Normal Negative [facility] Comment on above: Performed By: #### 2 619146, 47080943 ####[facility] [address] [place] [address] Clarity (U) CLEAR Normal Clear [facility] Comment on above: Performed By: #### 2 575995, 44596000 ####[facility] [address] [place] [address] Color (U) YELLOW Normal Yellow [facility] Comment on above: Performed By: #### 2 355210, 75676553 ####[facility] [address] [place] [address] Epithelial cells.squamous LM.HPF (Urine sed) [#/Area] /[HPF] Normal 0-2 [facility] Comment on above: Performed By: #### 2 147224, 63444143 ####[facility] [address] [place] [address] Glucose Test strip (U) [Mass/Vol] Negative Normal Negative [facility] Comment on above: Performed By: #### 2 036452, 54640953 ####[facility] [address] [place] [address] Hemoglobin Ql (U) Negative Normal Negative [facility] Comment on above: Performed By: #### 2 146266, 73956831 ####[facility] [address] [place] [address] Ketones (U) [Mass/Vol] Negative Normal Negative [facility] Comment on above: Performed By: #### 2 414723, 11026048 ####[facility] [address] [place] [address] [place].plasma/Lit hium.RBC (Bld) [Mass ratio] 0-3 Normal 0-3 [facility] Comment on above: Performed By: #### 2 149127, 76896987 ####[facility] [address] [place] [address] Nitrite Ql (U) Negative Normal Negative [facility] Comment on above: Performed By: #### 2 888434, 84576661 ####[address] [address] pH (U) 6.0 [pH] Invalid Interpretation Code 5.0-9.0 [facility] Comment on above: Performed By: #### 2 777113, 07337456 ####[address] [address] Protein (U) [Mass/Vol] Negative Normal Negative [facility] Comment on above: Performed By: #### 2 188514, 93234300 ####[address] [address] Specific gravity (U) [Rel density] <=1.005 Invalid Interpretation Code 1.005-1.030 [facility] Comment on above: Performed By: #### 2 629288, 15897946 ####[address] [address] Type of Urine collection method Clean Catch Normal [facility] Comment on above: Performed By: #### 2 775922, 89855474 ####[address] [address] Urobilinogen Qn (U) 0.2 {Gareth'U}/dL Normal 0.0-1.0 [facility] Comment on above: Performed By: #### 2 747169, 23078526 ####[address] [address] WBC Auto Ql (U) 1+ Abnormal Negative [facility] Comment on above: Performed By: #### 2 157725, 63945955 ####[address] [address] WBC LM.HPF (Urine sed) [#/Area] 0-5 Normal 0-5 [facility] Comment on above: Performed By: #### 2 848584, 67076304 ####[facility] [address] [place] [address] URINALYSISOrdered By: Osito Henderson on 10-20-2022 Bacteria LM Ql (Urine sed) 1+ /HPF Invalid Interpretation Code Trace/HPF [facility] UA Auto SS Bilirubin Ql (U) Negative (10/20/22 11:40 AM) Normal Negative [facility] UA Auto SS Clarity (U) Clear (10/20/22 11:40 AM) Normal Clear [facility] UA Auto SS Color (U) Yellow (10/20/22 11:40 AM) Normal Yellow [facility] UA Auto SS Epithelial cells.squamous LM.HPF (Urine sed) [#/Area] /[HPF] Normal 0-2/HPF [facility] UA Auto SS Glucose Test strip (U) [Mass/Vol] Negative (10/20/22 11:40 AM) Normal Negative [facility] UA Auto SS Hemoglobin Ql (U) Negative (10/20/22 11:40 AM) Normal Negative [facility] UA Auto SS Ketones (U) [Mass/Vol] Negative (10/20/22 11:40 AM) Normal Negative [facility] UA Auto SS [place].plasma/Lit hium.RBC (Bld) [Mass ratio] 0-3 /HPF Normal [...] AM) Invalid Interpretation Code 1.005 - 1.030 [facility] UA Auto SS UA Spec Desc Clean Catch (10/20/22 11:40 AM) Normal [facility] UA Auto SS Urobilinogen Qn (U) 0.4222487 {Gareth'U}/dL Normal 0.0 - 1.0 EU/dL [facility] UA Auto SS WBC Auto Ql (U) 1+ *ABN* (10/20/22 11:40 AM) Invalid Interpretation Code Negative [facility] UA Auto SS WBC LM.HPF (Urine sed) [#/Area] 0-5 /HPF Normal 0-5/HPF [facility] UA Auto SS eGFRon 10-20-2022 GFR/1.73 sq M.predicted among blacks MDRD (S/P/Bld) [Vol rate/Area] mL/min/{1.73_m2} Normal >=59 [facility] Comment on above: Order Comment: Order added by Discern Expert. Result Comment: eGFR is race adjusted. AA=. Performed By: #### 2 685906, 65467294, 3122917, 4015572 #### [facility] [address] [place] [address] GFR/1.73 sq M.predicted among non-blacks MDRD (S/P/Bld) [Vol rate/Area] 52 mL/min/1.73 m2 Low >=59 [facility] Comment on above: Order Comment: Order added by Discern Expert. Result Comment: Cushion Cover Inspector stefan kidney disease could be indicated at eGFR's of less than 60 mL/min/1.73m2. Kidney failure is indicated at less than 15 mL/min/1.73m2. Performed By: #### 2 936617, 38150475, 7536702, 3555247 #### [facility] [address] [place] [address] Coding Summary.on 10-16-2022 Coding Summary. CD:[id number] Gh0b Ww+PGhlYWQ+IB7FPEVbQ09cw VLqdB0PZ9nWNL0GQACTTOPKX A1QAI5yzCU9EAtfV3FuhrEq LddusCQaJQ91KJh7DSR2bVja CQkwtA4xqMMwA4l3QcYcEE94 gI48UGxsWBCcUwJ1ZjGhuuna bWFy Y4mmRwJmsWMmVom+PHRhYmxl IHdpZHRoPScxMDAlJyBzdHls JA0gKc1mBVLsJTSrjWdpeTFt OiBj i9xuKJVfEWhzRR2ofTfkC6Ev bFK6UEJsg0v1Ng15bWY+PHRk GRE2iMqsOUkdo894WmJvf3kl IDM3 bRJiGNxeNJP4H53xq9W3NSPb EMAgTCS4vKZ8mL4kgEtmfxlz P4SmuXNmFnO8XDG8tDQkhV0u bGln eyykxT4wYvp+E30TPM7HQMKC VR3KVjs2J4MnVdcciCR+PC90 BICfOQ52uCQvlNGbz5vcoNo6 JzEw PDRfVEW8qOajBJaco0FuHMBe I64kkJTgt9D9LYOncNzyzTAc EaWswRC3gH0yODjqeslcf3bj dzsn Kfnkq9cdgk10cV74E96cCBkz TBUgFLY3YDPhHLUexXlveu2b lF9nPl0+AIrzn0gyh9uzvIj0 IjIw WLOgujGdrCopUOS0k5WaJa22 X5RawHxef4HuNpv5zq07kJRn v6A2yYD1BEsnHSQmdN4eMRjr ZnQ6 XXSdJdJoaH51nFCxVLkbLf6b cNcxmEeqAF6wMJCflieyTCBo yR1iMOHrgOYxyUelLR3kCATf bjtm q131IhYgUQN0JFBleXBcC0Tb yN1lRmOzZGXwLRXhT8VhcKAs VRsdZ973SUdyWnE2FKIdvsOa Y2Fs LZGpiAafSwB1l7B3Qt5Gm4Uz caagWUF0FOedUYKmJyC1TlCk DhA1U1PnAlh3PZOlyLsbZM1y J3Bh XJLahnkpdbormTK8HVYbEWAs hP16vNIsPLooAp9wi4A9u302 XGHuBGSqbQ05Wa0lrZobNIMt dCBU yX6rmvggq7qlesdgJqPrWOUi GLl0PEv3QMZpqKgrZhQoJVC2 GmW4LWP7rTGilH9iiJuechnq dG9w Oyc+I97xeD1fJOL7SIL6oufi TWRpxfSzVA43XG14A2AfKony dGFibGU+FKAcygTcsHtmEX0i YmFj g9zsy2KiGAifZ7RnMWGwBOre Avi5OTBiBDW8aDE5jJ0qSLJf NKagh1L3zPN4J0QuhpAnpa6b b2xs JXNlPKatO28otEYyb4P1FPFf aUX1UVJvfMhjBzTkcM55Uvv+ VIPmuOrfv4ZlNypyn5jin7dd dGg9 EwFnUGJbeyGyzCffMPG2q8Wh Ow95U53bVMhkTKUoVFKyHCJl MHVbyAoxnp5reY4lKs5+PGNv bCB3 zEZ7fS4vHNUlBgS5CDwnP635 TfHtbJPtLlbfw1lyv1eluDk5 XyPpSDWdeuCodFvhUDU9q6Yr Lz48 Y64bMGdrQDCsEEHuVYSePFUt aQfeeh9fwG4rDi7+XT3ge9pa qb98kQ24hQZ+TYRtMWK2oAmz PSdw JVBbbY1hLXnrKqK2AMBvLpBg cT40cQJhIFyaBu0gvLeiyMvk SH1mEPGmdkufm847SjOck1wy IDEw uNBrYJtiLOG3I46bj1Y2EEBt GPVtHNU8vOM9wZ6ufKuhlwcv bGVmdDsgdmVydGljYWwtYWxp Z246 IHRvcDsnPlBhdGllbnQgTmFt BUd7J5YpTrw7SPPvrLpqSV9g bGAqOZqhYq8ryUuczSqvGL9k NTBp hufsp512HpMla8nlUCBpbTNp OLerMXG1V31ye0W6JGYnZWBe KHJ6tYS6cA2gcLvvpwhfrEHa dDsg seVwfQooCSygWBzvO618CCDu jAslAsUsazYzFVNmiUV4WU34 QY92qJPyy4T8vEX2Z7VsYTZd bmct lkmyoFH3UEKhLUSboO91Ye3q sEtzRo2wSGUlEIU0ZKIizXYv H2LcoX3uDzHrHWDsZCVuQ0Bk eHQt YEhuL767FAwvYyX2HCQcnyBp M8AgEVTtxGueWqV9d2C8Kv5F P8B3WO68QW48uCQiw3B9lFJ3 J3Bh XRKqloihmufliIG5NQLgFHZj qD83Qs6ciOyzIn4bMANaKQL8 ZENulXKfD6KqqW3qDlAhTMDn MDAw S2McnSWmTTvhM026DMuuCoK8 HCSwmiCbG3QvQEVurGxiPeD6 d9R3To8AGQl5XD68AS87uWBj c3R5 rTL2B0BqREBlcizqulakyKK3 ZVRiRXXtnW47Aq5zxYdlAa9w TWNmRPJ9OTQaeRMeG5VjvJ4a OiAj UYKeJASlQ3GflWMmHDuvS000 LGulRuW2MYGhstSmJ5EuNGOd mVcoRuI3u1S4Zz7PSDMpMT51 IFR5 oKC2ZX73NV01I2DlMzcbfPBp bGU+PHRhYmxlIHdpZHRoPScx ARKpIpImhNjoHF5nZk4tJXTm LWNv eFpatYXoEyGjl0dpTHEiUCez NN3wxDmmO0ZbhIB3QWZui4z0 Ob25M53oX3TcgJA+PGNvbCB3 aWR0 cU7qXuXzOaG9RQpoG019AoJl pEIxOzydj1wry6pjcQw0VlI6 WUFpnuEwqXluUFH2b8NtZm57 Y29s IHdpZHRoPSIxNSUiIHZhbGln fo2xsZ6sQa9+FDRdfIR6kYU7 zH0yGuPfUcY2LVhbM579KtRl cCIv Skwpz0ucz1ktsMh8FuMdWVQh lzAhqGzmVVT2h7CwGj58C0Vz uZagk4XoVng1pq47uOXak6U4 bGU9 D5PpEGRxpdtxgXDscYfkKH4j TQLttyjoBYTinS1gRBCrH8y8 TeVaHeH1SKcuT4CgwyY9JMHc cHQg EPwrXYE0N99li2A7OQSyPVIy BOI4wOM1hD5hkTkvayafaHIu rRhkqfKcqOheOUpvJEbxM211 IHRv hCkyLIAmcS2aXSHiqCWeqBnj AQ6uYCUdbmtwAgOOSpvBPNrb RBQQCNhDYV95KE71gDZuj6Z2 U9 I0NxVZSietnmwsfiaHQ1KKEa RPGjzO68fFLuFYjpHq4ia8M6 u610MVMjWSGzsJ77Fw3xzBkl MTBw tSQXgR6ulegvg6eutsdzIdGc GOMyADe1RPp9HFTtwCgcDxMx KTD3AuL6BHF0kUShhQ3lkPqm bjog gK9qDxv+XKTnABGoLVl9MLyb dGQ+JACyASJ6fFtaGGvuZVAk kV2nZSCvP5q2NaLoHrL8OIkd O3Bh JIAmjfrrWt20sD9iZyOcAaS2 UEnbB0CfclK2QHYexCVuMUjt FMW6E79ow2O3NQIbDYGzYLI2 dGV4 uI4bcXcrffzzePRbnExmokIw mCwxOCohFFpeZ036ULOhqPkv CdQgYHwqGGFoPO62ZX43lSQc c3R5 vRR8M7AdLHRulmzekkuwmFY9 QLGqXZBfxP53iYScAHroJe1u h1U8x263AJRzVFTfdK01Zg0g dDog ZYSxmHELtG4ajdmxr6khofxg UaMiBBUpCSt5MWa9MVBujEzn DyAzMSJ4MsW8ZTU1nYSenE2d bGln ojbvfY0nCcp+TbAkXRbjDY20 LW51zZVbh6L2aAH5M4XzYUEb jlvsscegnEJ3DRLyJMVauM02 cGFk GDkvDp7mt1A6c421SXUwXUAo jU63Lr4mfBfjNWEhoVFTyR0c zgdnh9oyluttSbPrNEAkDTa6 ZXh0 OWKqkEvvZqHvKCO7PwK3DMN3 vPMnwR5vpUshzrfqyG5rWvi+ KR4lvjqkylY3YI68TA73I0Do Pjwv dGFibGU+PHRhYmxlIHdpZHRo MFreQWBbZyHneCblUF6lOq8p KVYbCZCtuMuvwMElNqYga1ke YXBz FNpaMC2ywFpqB6VtsHS0SSXt q7k1Fi19B58iZ7YsgPI+PGNv vHG7qBU6lV0wBgMnBeN0JApd Z249 EmGgqXZwWuaqi8eoo4tyuNq5 RuQtPGTcfoKxpNflPFZ1p4Ej Ta28J58bYXdoUNWwWGUwDJTj IHZh tBcobx1pcA5dIl7+PGNvbCB3 zCU7vH5tDhPeRsV2BCctI969 ZxBccNDoFbmyB28kW2TcrXC+ PHRy Vtk5XPCqoVjkHU4dbTZqHGer Ss1kOLY1TsWpKnWbRUamV8Mw GFRaeummmigtbQJ9PBIzELKh aW47 Ql9msHjrOt3xLZSaYJQ7EVJj dNMtJ1HqjJ4tXjPwMVDtJZNp U9LptQGgZXrdT267WUzpLuT9 IHZl jhCxV7WqQJBfgFekQyC0v6J6 Ds6GoGzecWUeMJ9xPnGpKNj5 O3OfIbq2XRLvdIbeOB8faEGa ZGlu Uh1ssNtyaDmpBQ2nHMRdwfoo j789TtCuy4paIINohGAkUKwi BGM5J59ln9Y0DVRtBPBsVLM8 dGV4 kI3ttRkszkyhbWJqrHtghuDj cOfsHFvyWGskN991YTJbgGjp PxFADus3W3YsEzx2YWRgcBgt ZT0n gIQvLBpbCr3xrJfrvKryLU4a PIJocrqdq030WzTrk7coJATb mPCzYUmgFOD0A65ib8L0OFCj MDAw MHU3zTN6iG9bbCzufvjnaRQr fTzwuqNckRhdMKrbVShbN192 EGPbkIkgMi4YLbc3Q7UsCds0 ZCBz zBnxRG9fzFTaUFuuRc9xlJjb sVgzBX5cJNWfvwfxk687JlJa c9yvYJAhkCVyHKrgMGZ7U20b b3I6 AZDqUQEtNEU6iOW5nS2fzUuj bjogbGVmdDsgdmVydGljYWwt XSzxK651OIJbnOdgSoKewXZf Ojwv dGQ+IM41rq51V2LqWqdzRxr5 DKDzOHO1nKO0wF0rKKJiTBya n9Z6kMR2A3TmnaHyzq2fx2tf YXBz ZTog (more content not included)... [facility] Consent for Treatmenton 09-20 Consent for Treatment [id number]#[id number]: 127 [facility] Discharge Instructionson Discharge Instructions [id number]#1.00CD :127 Normal [facility] ED Clinical Summaryon 2022 ED Clinical Summary [address] [address] ED Clinical Summary Person Information Name: KETURAH HERRERA/Sonja Age: 52 Years : 1970 Sex: Female Language: Uruguayan PCP: ROBERT GIRON DO Marital Status: Visit [...] 10/12/2022 14:58:36 10/12/2022 14:58:36 10/12/2022 14:58:36 ADDRESS: [facility] [address] [place] [phone] PHYS DOC NOTES: MEDICAL INFORMATION: Prescriptions Given: [...] Address: When: ROBERT GIRON [address] [place], [place] [id number] [facility] In 3 days 10/15/2022 Comments: Call the office of your primary care doctor to arrange for follow-up within the above-stated timeframe. Follow-up with your primary care doctor about this ED visit. You should review (more content not included)... [facility] ED Note-Physicianon 10-12-19 ED Note-Physician Basic Information Time Seen: Maty NORRIS Isaías Veronica 10/12/2022 13:17 Chief Complaint pt presents with [...] reports she is not been taking any rgyk-utq-saemtgp medication at home. Review of Systems Full [...] and Complexity of Problems Differential Diagnosis: [] [facility] Data External documents reviewed: Not applicable [...] days 09/20 (more content not included)... [facility] Comment on above: Result Comment: Elec [...] to decrease my back pain? ? Take ambc-dmu-fsbqjpc or prescription medicines only as told by [...] and in-person support groups through: ? The [place] [employer]: https://theacpa.org/Supp ort-Groups ? The [...] 08/19/2016 Document Revised: 07/18/2018 Document Reviewed: 04/13/2017 [employer] Patient Education ? 2019 [employer]. [facility] ED Patient Summaryon 023 ED Patient Summary (Inserted Image. [place] ble to display) [place] [id number] Patient Discharge Instructions Person Information Name: KETURAH HERRERA Age: 52 Years Arrival Date: 10/12/2022 12:54:34 Discharge Diagnosis: Chronic pain Primary Care Physician: ROBERT GIRON DO Provider Information Primary Provider: Santos Landry DO Advanced Awning Erector:Isaías Rutledge PA-C The exam and treatment you received in the Emergency Department were for an urgent problem and are not intended as complete care. It is important that you follow up with a doctor, nurse practitioner, or physician?s veterinarian assistant for ongoing care. If your symptoms become worse or you do not improve as expected and you are unable to reach your usual health care provider, you should return to the Emergency Department. We are available 24 hours a day. KETURAH HERRERA has been given the following list of patient education materials, prescriptions and follow-up instructions: Follow-up Instructions: With: Address: When: ROBERT GIRON [address] [place], [place] [id number] Business (1) In 3 days 10/15/2022 Comments: Call [...] opioids can be used to help relieve rufzizcq-qr-gmkzkl pain and are often prescribed following a [...] Safely disp (more content not included)... [facility] Ambulatory Visit Summaryon 0 10-02-2022 Ambulatory Visit Summary KETURAH HERRERA :1970 Visit Date:10/02/2022 Ambulatory Visit Instructions Your [...] Clinic Saturday 3:15 PM EDT With: Where: [facility] Saturday 2:40 PM EDT With: Where: [facility] Saturday 1:20 PM EDT With: SHERI JIMENES PA-C Where: [facility] Gastroenterology Office/Clin ic Noteon 10-02-2022 Gastroenterology [...] 28.98 Ge (more content not included)... [facility] Comment on above: Result Comment: Elec tronically Signed By: Inessa Grajeda CNP\.rosi\Date and Time Signed: 10/02/22 13:01 EST Patient Educationon 10-02-19 Patient Education Gastroenterology Nausea and Vomiting, Adult [...] added (diluted fruit juice). ? Eat bland, iqgr-et-iaeyeo foods in small amounts as you are able. These foods include bananas, applesauce, rice, lean meats, toast, and crackers. ? Avoid fluids that contain a lot of sugar or caffeine, such as energy drinks, sports drinks, and soda. ? Avoid alcohol. ? Avoid spicy or fatty foods. General instructions ? Take kpci-spq-xwokjzn and prescription medicines only as told by your health care provider. ? Drink enough fluid to keep your urine pale yellow. ? Wash your hands often using soap and water. If soap and water are not available, use hand marble mechanic helper. ? Make sure that all people in [...] and drinking to prevent dehydration. ? Take vzpx-zru-kqxlnvt and prescription medicines only as told by [...] 08/05/2006 Document Revised: 11/27/2019 Document Reviewed: 01/13/2019 [employer] Patient Education ? 2019 [employer]. [facility] Retail - Clinical Noteon Retail - Clinical Note [id number]#1.00CD: 127 [facility] MG MAMM DIAGNOSTIC 3D TAJ CA Don 09-10-2022 MG MAMM DIAGNOSTIC 3D TAJ CAD Patient: KETURAH HERRERA Exam Date: 09/10/2022 : 1970 Gender:F Ordering : DR FREDERICK MAHARAJ . Admission #: [id number] Family : Order #: [id number] CLICK HERE TO VIEW EXAM RADIOLOGY REPORT [...] ovarian cancer at age 60. LOCATION: [facility] BREAST COMPOSITION: Heterogeneously dense,which may obscure [...] M.D. on 09/10/2022 at 13:54 Normal [facility] US BREAST LEFT LIMITEDon US BREAST LEFT LIMITED Patient: KETURAH HERRERA Exam Date: 09/10/2022 : 1970 Gender:F Ordering : DR FREDERICK MAHARAJ . Admission #: [id number] Family : Order #: [id number] CLICK HERE TO VIEW EXAM RADIOLOGY REPORT [...] ovarian cancer at age 60. LOCATION: [facility] BREAST COMPOSITION: Heterogeneously dense,which may obscure [...] Roach M.D. on 09/10/2022 at 13:54 Normal [facility] XR DEXA BONE DENSITYon 08-06 XR [...] DELORES ROACH Date: 2022-08-06 14:11 Normal [facility] XR CHEST 2 Von 07-04-2022 XR [...] NICOLE ROJAS Date: 2022-07-04 14:11 Normal [facility] XR KNEE RT 4V or >on [...] NICOLE ROJAS Date: 2022-07-03 18:12 Normal [facility] CBC AUTO DIFFon 04-30-2022 BASO # 0.1 103/ul Normal 0.0-0.1 [facility] Comment on above: Performed By: #### C BC ####[facility] [address] [place] [address]Dr. Soo Taylor Basophils/100 WBC (Bld) 0.7 % Normal 0.2-2.0 [facility] Comment on above: Performed By: #### C BC ####[facility] [address] [place] [address]Dr. Soo Taylor EO # 0.1 103/ul Normal 0.0-0.7 [facility] Comment on above: Performed By: #### C BC ####[facility] [address] [place] [address]Dr. Soo Taylor Eosinophils/100 WBC (Bld) 0.4 % Critically low 0.9-7.0 [facility] Comment on above: Performed By: #### C BC ####[facility] [address]qvx[address]lj4[address] [place] [address]Dr. Soo Taylor Erythrocyte distribution width (RBC) [Ratio] 15.1 % Critically high 11.0-15.0 [facility] Comment on above: Performed By: #### C BC ####[facility] [address] [place] [address]Dr. Soo Taylor Hematocrit (Bld) [Volume fraction] 43.4 % Normal 36.0-48.0 [facility] Comment on above: Performed By: #### C BC ####[facility] Yqhgogxror6629 [place] [address]Dr. Soo Taylor Hemoglobin (Bld) [Mass/Vol] 14.4 g/dL Normal 12.0-16.0 [facility] Comment on above: Performed By: #### C BC ####[facility] Bkimlvhncr[address]12 [place] [address]Dr. Soo Taylor IG # 0.06 10e3/ul Critically high 0.00-0.03 [facility] Comment on above: Performed By: #### C BC ####[facility] Ttprqhcias64[address] [place] [address]Dr. Soo Taylor IG % 0.4 % Normal 0.0-0.5 [facility] Comment on above: Performed By: #### C BC ####[facility] [address] [place], [place] [address]Dr. Soo Taylor LYMPH # 5.4 103/ul Critically high 1.2-3.8 [facility] Comment on above: Performed By: #### C BC ####[facility] [address] [place], [place] [address]Dr. Soo Taylor Lymphocytes/100 WBC (Bld) 36.6 % Normal 20.5-60.0 [facility] Comment on above: Performed By: #### C BC ####[facility] [address]xrnxsxuin42[address] [place] [address]Dr. Soo Taylor MANUAL DIFF REQ NO Normal [facility] Comment on above: Performed By: #### C BC ####[facility] [address] [place], [place] [address]Dr. Soo Taylor MCH (RBC) [Entitic mass] 29.4 pg Normal 26.7-34.0 [facility] Comment on above: Performed By: #### C BC ####[facility] Z[address] [place], [place] [address]Dr. Soo Taylor MCHC (RBC) [Mass/Vol] 33.2 g/dL Normal 29.9-35.2 [facility] Comment on above: Performed By: #### C BC ####[facility] Urlxfihdtt[address]79 [place] [address]Dr. Soo Taylor MCV (RBC) [Entitic vol] 88.6 fL Normal 81.0-99.0 [facility] Comment on above: Performed By: #### C BC ####[facility] Wrqrcblfry7634 [place] [address]Dr. Soo Taylor MONO # 0.9 103/ul Critically high 0.3-0.8 [facility] Comment on above: Performed By: #### C BC ####[facility] Cxuutgefrj7145 [place] [address]Dr. Soo Taylor Monocytes/100 WBC (Bld) 6.4 % Normal 1.7-12.0 [facility] Comment on above: Performed By: #### C BC ####[facility] Rnfvygetss5813 [place] [address]Dr. Soo Taylor NEUT # 8.1 103/ul Critically high 1.4-6.5 [facility] Comment on above: Performed By: #### C BC ####[facility] Dzydehcpxs5628 [place] [address]Dr. Soo Taylor Neutrophils/100 WBC (Bld) 55.5 % Normal 43.0-75.0 [facility] Comment on above: Performed By: #### C BC ####[facility] Nsnkxiywtv6281 [place] [address]Dr. Soo Taylor Platelet mean volume (Bld) [Entitic vol] 9.9 fL Normal 9.5-13.5 [facility] Comment on above: Performed By: #### C BC ####[facility] Ugtrqjrkih20[address] [place] [address]Dr. Soo Taylor PLT 326 103/ul Normal 150-450 [facility] Comment on above: Performed By: #### C BC ####[facility] I[address]bkqvekue5[address] [place] [address]Dr. Soo Taylor RBC 4.90 106/ul Normal 4.20-5.40 [facility] Comment on above: Performed By: #### C BC ####[facility] Wvefbdesqo5257 [place] [address]Dr. Soo Taylor WBC 14.6 103/ul Critically high 4.0-11.0 [facility] Comment on above: Performed By: #### C BC ####[facility] S[address]zvdpkee6[address] [place] [address]Dr. Soo Brandon PROF CHEM 8 (BAS METB)on Anion gap [Moles/Vol] 12.9 mmol/L Normal [facility] Comment on above: Performed By: #### B MP ####[facility] [address]lkhzqxee66[address] [place] [address]Dr. Soo Taylor Calcium [Mass/Vol] 9.5 mg/dL Normal 8.5-10.1 [facility] Comment on above: Performed By: #### B MP ####[facility] [address] [place], [place] [address]Dr. Soo Taylor Chloride [Moles/Vol] 101 mmol/L Normal 98-107 [facility] Comment on above: Performed By: #### B MP ####[facility] Huodugvfdx97[address] [place] [address]Dr. Soo Brandon CO2 [Moles/Vol] 26.6 mmol/L Normal 21.0-32.0 [facility] Comment on above: Performed By: #### B MP ####[facility] [address] [place], [place] [address]Dr. oSo Taylor Creatinine [Mass/Vol] 1.11 mg/dL Critically high 0.55-1.02 [facility] Comment on above: Performed By: #### B MP ####[facility] [address]ozpr[address] [place] [address]Dr. Soo Taylor EGFR-AF KAZAKH >60 Normal >=60 [facility] Comment on above: Performed By: #### B MP ####[facility] [address] [place], [place] [address]Dr. Soo Taylor EGFR-NON AF KAZAKH 52 mL/min/1.73m2 Critically low >=60 [facility] Comment on above: Performed By: #### B MP ####[facility] X[address]qvmdobnk9562 [place] [address]Dr. Soo Taylor Glucose [Mass/Vol] 145 mg/dL Critically high 74-106 T [facility] Comment on above: Performed By: #### B MP ####[facility] [address] [place], [place] [address]Zy. Soo Taylor Potassium [Moles/Vol] 3.5 mmol/L Normal 3.5-5.1 [facility] Comment on above: Performed By: #### B MP ####[facility] Nfrodpofbd5589 [place] [address]Dr. Soo Taylor Sodium [Moles/Vol] 137 mmol/L Normal 136-145 [facility] Comment on above: Performed By: #### B MP ####[facility] Gnndhhizms7699 [place] [address]Dr. Soo Taylor Urea nitrogen [Mass/Vol] 2.0 mg/dL Critically low 7.0-18.0 [facility] Comment on above: Performed By: #### B MP ####[facility] [address]xz[address]ren[address] [place] [address]Dr. Soo Taylor Urea nitrogen/Creatinin e [Mass ratio] 1.8 mg/mg Normal [facility] Comment on above: Performed By: #### B MP ####[facility] [address]dfpvtgsas49[address] [place] [address]Dr. Soo Taylor TROPONIN, HIGH SENSITIVITYon 04-30-2022 HSTROP 5.1 pg/mL Normal 4.0-51.3 [facility] Comment on above: Result Comment: CUT- OFF POINTS HAVE BEEN ESTABLISHED BASED ON THE FOURTH UNIVERSAL DEFINITIONS OF MYOCARDIAL INFARCTION. THE UPPER REFERENCE LIMIT (URL) OF TROPONIN, DEFINED THE 99TH PERCENTILE OF cTnI DISTRIBUTION IN A REFERENCE POPULATION, HAS BEEN CONFIRMED THE DECISION THRESHOLD FOR PA DIAGNOSIS. Performed By: #### H STROPN ####[facility] [address]wcbhx86[address] [place] [address]Dr. Soo Taylor HSTROP 4.6 pg/mL Normal 4.0-51.3 [facility] Comment on above: Result Comment: CUT- OFF POINTS HAVE BEEN ESTABLISHED BASED ON THE FOURTH UNIVERSAL DEFINITIONS OF MYOCARDIAL INFARCTION. THE UPPER REFERENCE LIMIT (URL) OF TROPONIN, DEFINED THE 99TH PERCENTILE OF cTnI DISTRIBUTION IN A REFERENCE POPULATION, HAS BEEN CONFIRMED THE DECISION THRESHOLD FOR PA DIAGNOSIS. Performed By: #### H KRISTI ####[facility] [address] [place], [place] [address]Tn. Soo Taylor MRI LSPINE WO CONon 04-06-20 22 MRI LSPINE WO CON EXAMINATION: MRI LSP [...] by: MAMIE HERNANDEZ Date: 2022-04-06 18:18 Normal [facility] MRI KNEE RT WO CONon 022 [...] by: MAMIE HERNANDEZ Date: 2022-03-28 11:40 Normal [facility] MRI SHOULDER RT WO CONon MRI [...] MAMIE HERNANDEZ Date: 2022-03-28 09:09 Normal [facility] ER URINE PROFILEon 2 Bilirubin Ql (U) Negative Normal NEGATIVE [facility] Comment on above: Performed By: #### E RUR #### [facility] [address] [place] [address] Dr. Soo Taylor Clarity (U) CLEAR Normal CLEAR [facility] Comment on above: Performed By: #### E RUR #### [facility] [address] [place] [address] Dr. Soo Taylor Color (U) LT. YELLOW Normal YELLOW [facility] Comment on above: Performed By: #### E RUR #### [facility] [address] [place] [address] Dr. Soo Taylor ERUAHD A micrscopic examina tion will be performed if indicated. Normal [facility] Comment on above: Performed By: #### E RUR #### [facility] [address] [place] [address] Dr. Soo Taylor Glucose Ql (U) Negative Normal NEGATIVE [facility] Comment on above: Performed By: #### E RUR #### [facility] [address] [place] [address] Dr. Soo Taylor Hemoglobin Ql (U) Negative Normal NEGATIVE [facility] Comment on above: Performed By: #### E RUR #### [facility] [address] [place] [address] Dr. Soo Taylor Ketones Ql (U) Negative Normal NEGATIVE [facility] Comment on above: Performed By: #### E RUR #### [facility] [address] [place] [address] Dr. Soo Taylor LEUKOCYTES Negative Normal NEGATIVE [facility] Comment on above: Performed By: #### E RUR #### [facility] [address] [place] [address] Dr. Soo Taylor Nitrite Ql (U) Negative Normal NEGATIVE [facility] Comment on above: Performed By: #### E RUR #### [facility] [address] [place] [address] Dr. Soo Taylor pH (U) 5.5 [pH] Normal 5-9 [facility] Comment on above: Performed By: #### E RUR #### [facility] [address] [place] [address] Dr. Soo Taylor SPEC GRAVITY <=1.005 Abnormal 1.005-<=1.025 [facility] Comment on above: Performed By: #### E RUR #### [facility] [address] [place] [address] Dr. Soo Taylor UA PROTEIN Negative Normal NEGATIVE/ TRACE [facility] Comment on above: Performed By: #### E RUR #### [facility] [address] [place] [address] Dr. Soo Taylor UR MICRO IND NOT INDICATED Normal [facility] Comment on above: Performed By: #### E RUR #### [facility] [address] [place] [address] Dr. Soo Taylor Urobilinogen Qn (U) 0.2 {Gareth'U}/dL Normal 0.2 - 1.0 [facility] Comment on above: Performed By: #### E RUR #### [facility] [address] [place] [address] Dr. Soo Taylor COMPREHENSIVE METABOLIC PANE Bulmaro 02-22-2022 Albumin [Mass/Vol] 4.2 g/dL Normal 3.6-5.1 [facility] Comment on above: Performed By: #### 7 600, 05443, 496 #### [facility] [address], [address] [place] [address] [place] [employer]: Arjun Ramos MD Albumin/Globulin [Mass ratio] 1.8 {ratio} Normal 1.0-2.5 [facility] Comment on above: Performed By: #### 7 600, 98985, 496 #### [facility] [place] [address] [place] [employer]: Arjun Ramos MD ALP [Catalytic activity/Vol] 143 U/L Normal 37-153 [facility] Comment on above: Performed By: #### 7 600, 99348, 496 #### [facility] of [place] [address] [place] [employer]: Arjun Ramos MD ALT [Catalytic activity/Vol] 18 U/L Normal 6-29 [facility] Comment on above: Performed By: #### 7 600, 57955, 496 #### [facility] [place] [address] [place] [employer]: Arjun Ramos MD AST [Catalytic activity/Vol] 14 U/L Normal 10-35 [facility] Comment on above: Performed By: #### 7 600, 56442, 496 #### [facility] [place] [address] [place] [employer]: Arjun Ramos MD Bilirubin [Mass/Vol] 0.5 mg/dL Normal 0.2-1.2 [facility] Comment on above: Performed By: #### 7 600, 25916, 496 #### [facility] [place] [address] [place] [employer]: Arjun Ramos MD Calcium [Mass/Vol] 10.0 mg/dL Normal 8.6-10.4 [facility] Comment on above: Performed By: #### 7 600, 97246, 496 #### [facility] [place] [address] [place] [employer]: Arjun Ramos MD Chloride [Moles/Vol] 100 mmol/L Normal 98-110 [facility] Comment on above: Performed By: #### 7 600, 35587, 496 #### [facility] [place] [address] [place] [employer]: Arjun Ramos MD CO2 [Moles/Vol] 29 mmol/L Normal 20-32 [facility] Comment on above: Performed By: #### 7 600, 54810, 496 #### [facility] [place] [address] [place] [employer]: Arjun Ramos MD Creatinine [Mass/Vol] 0.86 mg/dL Normal 0.50-1.05 [facility] Comment on above: Result Comment: For patients >49 years of age, the reference limit for Creatinine is approximately 13% higher for people identified as -[place] African. Performed By: #### 7 600, 84917, 496 #### [facility] [place] [address] [place] [employer]: Arjun Ramos MD eGFR NON-AFR. KAZAKH 78 mL/min/1.73m2 Normal > OR = 60 [facility] Comment on above: Performed By: #### 7 600, 18957, 496 #### [facility] [place] [address] [place] [employer]: Arjun Ramos MD GFR/1.73 sq M.predicted among blacks MDRD (S/P/Bld) [Vol rate/Area] 91 mL/min/{1.73_m2} Normal > OR = 60 [facility] Comment on above: Performed By: #### 7 600, [id number], 496 #### [facility] [place] [address] [place] Tier: Arjun Ramos MD Globulin (S) [Mass/Vol] 2.4 g/dL Normal 1.9-3.7 [facility] Comment on above: Performed By: #### 7 600, [id number], 496 #### [facility] [place] [address] [place] Tier: Arjun Ramos MD Glucose [Mass/Vol] 125 mg/dL Normal 65-139 [facility] Comment on above: Result Comment: Non-fasting reference interval For someone without known diabetes, a glucose value between 100 and 125 mg/dL is consistent with prediabetes and should be confirmed with a follow-up test. Performed By: #### 7 600, [id number], 496 #### [facility] [place] [address] [place] Tier: Arjun Ramos MD Potassium [Moles/Vol] 3.6 mmol/L Normal 3.5-5.3 [facility] Comment on above: Performed By: #### 7 600, [id number], 496 #### [facility] [place] [address] [place] Tier: Arjun Ramos MD Protein [Mass/Vol] 6.6 g/dL Normal 6.1-8.1 [facility] Comment on above: Performed By: #### 7 600, 09655, 496 #### [facility] [place] [address] [place]: Arjun Ramos MD Sodium [Moles/Vol] 139 mmol/L Normal 135-146 [facility] Comment on above: Performed By: #### 7 600, 66139, 496 #### [facility] [place] [address] [place]: Arjun Ramos MD Urea nitrogen [Mass/Vol] 4 mg/dL Low - [facility] Comment on above: Performed By: #### 7 600, 00425, 496 #### [facility] [place] [address] [place]: Arjun Ramos MD Urea nitrogen/Creatinin e [Mass ratio] 5 mg/mg Low - [facility] Comment on above: Performed By: #### 7 600, 77008, 496 #### [facility] [place] [address] [place]: Arjun Ramos MD HEMOGLOBIN A1con 07-07-2022 HEMOGLOBIN A1c 5.4 % of total Hgb [...] diagnosis of diabetes in children. According to [place] Diabetes Association (ADA) guidelines, hemoglobin A1c <7.0% represents optimal control in non- diabetic patients. Different metrics may apply to specific patient populations. Standards of Medical Care in Diabetes(ADA). Performed By: #### 7 600, 15502, 496 #### [facility] [address], [address] [place] [address] [place]: Arjun Ramos MD LIPID PANEL, [facility] 0 Cholesterol [Mass/Vol] 187 mg/dL Normal <200 [facility] Comment on above: Order Comment: FASTI NG:NO FASTING: NO Performed By: #### 7 600, 07544, 496 #### [facility] [address], [address] [place] [address] [place]: Arjun Ramos MD Cholesterol in HDL [Mass/Vol] 43 mg/dL Low > OR = 50 [facility] Comment on above: Order Comment: FASTI NG:NO FASTING: NO Performed By: #### 7 600, 99293, 496 #### [facility] [address], [address] [place] [address] [place]: Arjun Ramos MD Cholesterol.total/ Cholesterol in HDL [Mass ratio] 4.3 {ratio} Normal <5.0 [facility] Comment on above: Order Comment: FASTI NG:NO FASTING: NO Performed By: #### 7 600, 49294, 496 #### [facility] [place] [address] [place]: Arjun Ramos MD LDL-CHOLESTEROL Normal [facility] [...] equation in the estimation of LDL-C. Lan SS et al. KELLY. 2013;310(19): 0588-0321 (http://education.[employer]/faq/MIT721) Performed By: #### 7 600, 83385, 496 #### [facility] [address], [address] [place] [address] [place]: Arjun Ramos MD NON HDL CHOLESTEROL 144 mg/dL (calc) High <130 [facility] Comment on above: Order Comment: FASTI NG:NO FASTING: NO Result Comment: For patients with diabetes plus 1 major ASCVD risk factor, treating to a non-HDL-C goal of <100 mg/dL (LDL-C of <70 mg/dL) is considered a therapeutic option. Performed By: #### 7 600, 48916, 496 #### [facility] [address], [address] [place] [address] [place]: Arjun Ramos MD Triglyceride [Mass/Vol] 425 mg/dL High <150 [facility] Comment on above: Order Comment: FASTI NG:NO FASTING: NO Result Comment: If a non-fasting specimen was collected, consider repeat triglyceride testing on a fasting specimen if clinically indicated. Heber et al. J. of Clin. Lipidol. 2015;9:129-169. Performed By: #### 7 600, 99121, 496 #### [facility] [address], [address] [place] [address] [place]: Arjun Ramos MD HEMOGLOBIN A1con 11-14-2021 HEMOGLOBIN [...] #### 7 600, 496 #### [facility] [address], [address] [place] [address] [place]: Arjun Ramos MD LIPID PANEL, [facility] 10-18 Cholesterol [Mass/Vol] 184 mg/dL Normal <200 [facility] Comment on above: Order Comment: FASTI NG:YES FASTING: YES Performed By: #### 7 600, 496 #### [facility] [address], [address] [place] [address] [place]: Arjun Ramos MD Cholesterol in HDL [Mass/Vol] 32 mg/dL Low > OR = 50 [facility] Comment on above: Order Comment: FASTI NG:YES FASTING: YES Performed By: #### 7 600, 496 #### [facility] [address], [address] [place] [address] [place]: Arjun Ramos MD Cholesterol.total/ Cholesterol in HDL [Mass ratio] 5.8 {ratio} High <5.0 [facility] Comment on above: Order Comment: FASTI NG:YES FASTING: YES Performed By: #### 7 600, 496 #### [facility] [address], [address] [place] [address] [place]: Arjun Ramos MD LDL-CHOLESTEROL Normal [facility] [...] factors. LDL-C is now calculated using the Lan-Cid calculation, which is a validated novel method providing better accuracy than the Friedewald equation in the estimation of LDL-C. Lan MARTÍNEZ et al. KELLY. 2013;310(19): 9759-4629 (http://education.[employer]/faq/ZSD531) Performed By: #### 7 600, 496 #### [facility] [address], [address] [place] [address] [place]: Arjun Ramos MD NON HDL CHOLESTEROL 152 mg/dL (calc) High <130 [facility] Comment on above: Order Comment: FASTI NG:YES FASTING: YES Result Comment: For patients with diabetes plus 1 major ASCVD risk factor, treating to a non-HDL-C goal of <100 mg/dL (LDL-C of <70 mg/dL) is considered a therapeutic option. Performed By: #### 7 600, 496 #### [facility] [address], [address] [place] [address] [place]: Arjun Ramos MD Triglyceride [Mass/Vol] 531 mg/dL High <150 [facility] Comment on above: Order Comment: FASTI NG:YES FASTING: YES Result Comment: If a non-fasting specimen was collected, consider repeat triglyceride testing on a fasting specimen if clinically indicated. Buck et al. J. of Clin. Lipidol. 2015;9:129-169. There is increased risk of pancreatitis when the triglyceride concentration is very high (> or = 500 mg/dL, especially if > or = 1000 mg/dL). Buck et al. J. of Clin. Lipidol. 2015;9:129-169. Performed By: #### 7 600, 496 #### [facility] [address], [address] [place] [address] [place]: Arjun Alejandro 06-27-2021 CNOV Office Visit (OTOL ) -------- KETURAH HERRERA ([id number]) 1970 F Date Time Provider Department 06/27/21 2:00 PM YE RODRIGUEZ During your visit today, we recorded the following information about you: Temperature Pulse 97.3 degrees 82/minute Ye Rodriguez PA-C 06/27/2021 4:56 PM Signed [facility] NOTE CC: Keturah Herrera is a [...] bipolar - COPD (chronic obstructive pulmonary disease) ([facility]) - Depression - Ana Laura-Danlos [...] tubal ligation - PAST SURGICAL HISTORY OF 2005 hysterectomy - PAST SURGICAL HISTORY OF carpal [...] mg ta (more content not included)... Normal [facility] CNOVon 04-19-2021 CNOV Office Visit (LOORRM ) -------- KETURAH HERRERA ([id number]) 1970 F Date Time Provider Department 04/19/21 [...] Vomiting Date Reviewed: 04/19/2021 Reviewed by: Randi Farrell DO - Fully Assessed Reason for Visit: New [711920] Fracture [4131] Primary Visit Diagnosis:Other closed nondisplaced fracture of proximal end of left humerus, initial encounter [S42.295A] Other Visit Diagnosis:Right elbow pain [M25.521] Order(s):XR ELBOW SPECIAL VIEWS AP/LAT/OTHER RT [[id number]] Order #: [id number] FUTURE CONSULT TO DEICER INSPECTOR PNEUMATIC [[id number]] Order #: [id number]: [id number] FUTURE Prescriptions as of 04/19/2021 - [...] of att (more content not included)... Normal [facility] XR ELBOW 3V AP/LAT/OTHER RTo n 04-19-2021 [...] NO ACUTE OSSEOUS ABNORMALITY OTHER FINDINGS DESCRIBED [employer] Service Team Member: DIONNE Transcribe Date/Time: Apr 19 2021 2:38P Dictated by : CAROL ROCHE MD This examination was interpreted and the report reviewed and electronically signed by: CAROL ROCHE MD on Apr 19 2021 2:39PM EST [id number] Normal [facility] XR SHLDR >/=3V AP/IGNACIA AP/OTH R RTon 04-19-2021 XR SHLDR >/=3V AP/IGNACIA AP/OTHR RT * * *Final Report* * * DATE OF EXAM: Apr 19 2021 1:10PM LZX 5253 - XR SHLDR >/=3V AP/IGNACIA AP/OTHR [...] No other significant abnormality. IMPRESSION: HEALING FRACTURE [employer] Service Team Member: DIONNE Transcribe Date/Time: Apr 19 2021 2:02P Dictated by : CAROL ROCHE MD This examination was interpreted and the report reviewed and electronically signed by: CAROL ROCHE MD on Apr 19 2021 2:02PM EST [id number] Normal [facility] Vital Signs Date Time Vital Sign Value Performing Clinician Facility 09-17-2023 08:23-0500 Blood Pressure Location SHERIYOVANY MURPHYRY [facility] 09-17-2023 08:23-0500 Diastolic blood pressure 52 mm[Hg] SHERI MURPHYRY [facility] 09-17-2023 08:23-0500 Heart rate 65 /min SHERI JIMENES [facility] 09-17-2023 08:23-0500 Respiratory rate 16 /min SHERIYOVANY JIMENES [facility] 09-17-2023 08:23-0500 Systolic blood pressure 135 mm[Hg] SHERI MURPHYRY [facility] 08-27-2023 10:30-0500 Body height 165.1 cm Valarie Javier Other [employer] [facility] [employer] Other 08-27-2023 10:30-0500 Body mass index (BMI) [Ratio] 29.28 kg/m2 Valarie Javier Other [employer] Other 08-27-2023 10:30-0500 Body temperature 97.2 [degF] Valarie Javier Other [employer] Other 08-27-2023 10:30-0500 Body weight 79.83 kg Valarie Javier Other [employer] Other 08-27-2023 10:30-0500 Diastolic blood pressure 80 mm[Hg] Valarie Javier Other [employer] Other 08-27-2023 10:30-0500 Respiratory rate 20 /min Valarie Javier Other [employer] Other 08-27-2023 10:30-0500 SaO2% (BldA) [Mass fraction] 93 % Valarie Javier Other [employer] Other 08-27-2023 10:30-0500 Systolic blood pressure 132 mm[Hg] Valarie Javier Other [employer] Other 07-25-2023 10:39-0500 Blood Pressure Location Elliott SOLIS [facility] 07-25-2023 10:39-0500 Diastolic blood pressure 82 mm[Hg] Elliott SOLIS [facility] 07-25-2023 10:39-0500 Heart rate 76 /min Elliott SOLIS [facility] 07-25-2023 10:39-0500 SaO2% (BldA) [Mass fraction] 97 % Elliott SOLIS [facility] 07-25-2023 10:39-0500 Systolic blood pressure 138 mm[Hg] Elliott SOLIS [facility] 07-05-2023 15:44-0500 Blood Pressure Location Cady ERNIEPamela [facility] 07-05-2023 15:44-0500 Diastolic blood pressure 83 mm[Hg] Cady KLEING [facility] 07-05-2023 15:44-0500 Heart rate 70 /min Cadyblaine CALIX [facility] 07-05-2023 15:44-0500 SaO2% (BldA) [Mass fraction] 99 % Cadyblaine CALIX [facility] 07-05-2023 15:44-0500 Systolic blood pressure 138 mm[Hg] Cadyblaine CALIX [facility] 05-20-2023 10:03-0400 Blood Pressure Location Cadyblaine CALIX [facility] 05-20-2023 10:03-0400 Diastolic blood pressure 80 mm[Hg] Cadyblaine CALIX [facility] 05-20-2023 10:03-0400 Heart rate 75 /min Cadyblaine CALIX [facility] 05-20-2023 10:03-0400 SaO2% (BldA) [Mass fraction] 98 % Cadyblaine CALIX [facility] 05-20-2023 10:03-0400 Systolic blood pressure 130 mm[Hg] Cadyblaine CALIX [facility] 02-26-2023 08:30-0400 Body height 165.1 cm Valarie Javier Other [employer] [facility] [employer] Other 02-26-2023 08:30-0400 Body mass index (BMI) [Ratio] 28.25 kg/m2 Valarie Javier Other [employer] Other 02-26-2023 08:30-0400 Body temperature 96.9 [degF] Valarie Javier Other [employer] Other 02-26-2023 08:30-0400 Body weight 77.02 kg Valarie Javier Other [employer] Other 02-26-2023 08:30-0400 Diastolic blood pressure 84 mm[Hg] Valarie Javier Other [employer] Other 02-26-2023 08:30-0400 Respiratory rate 20 /min Valarie Javier Other [employer] Other 02-26-2023 08:30-0400 SaO2% (BldA) [Mass fraction] Valarie Javier Other [employer] Other 02-26-2023 08:30-0400 Systolic blood pressure 138 mm[Hg] Valarie Javier Other [employer] Other 01-17-2023 10:04-0400 Diastolic blood pressure 76 mm[Hg] Poole SALAM [facility] 01-17-2023 10:04-0400 Heart rate 70 /min Poole SALAM [facility] 01-17-2023 10:04-0400 Mean blood pressure 100 mm[Hg] Poole SALAM [facility] 01-17-2023 10:04-0400 Respiratory rate 17 /min Poole SALAM [facility] 01-17-2023 10:04-0400 SaO2% (BldA) [Mass fraction] 99 % Poole SALAM [facility] 01-17-2023 10:04-0400 Systolic blood pressure 149 mm[Hg] Poole SALAM [facility] 01-17-2023 09:55-0400 Diastolic blood pressure 80 mm[Hg] Poole SALAM [facility] 01-17-2023 09:55-0400 Heart rate 74 /min Poole SALAM [facility] 01-17-2023 09:55-0400 Mean blood pressure 97 mm[Hg] Poole SALAM [facility] 01-17-2023 09:55-0400 Respiratory rate 15 /min Poole SALAM [facility] 01-17-2023 09:55-0400 SaO2% (BldA) [Mass fraction] 99 % Poole SALAM [facility] 01-17-2023 09:55-0400 Systolic blood pressure 132 mm[Hg] Poole SALAM [facility] 01-17-2023 09:50-0400 Diastolic blood pressure 79 mm[Hg] Poole SALAM [facility] 01-17-2023 09:50-0400 Heart rate 73 /min Poole SALAM [facility] 01-17-2023 09:50-0400 Mean blood pressure 94 mm[Hg] Poole SALAM [facility] 01-17-2023 09:50-0400 Respiratory rate 13 /min Poole SALAM [facility] 01-17-2023 09:50-0400 SaO2% (BldA) [Mass fraction] 98 % Poole SALAM [facility] 01-17-2023 09:50-0400 Systolic blood pressure 125 mm[Hg] Poole SALAM [facility] 01-17-2023 09:39-0400 Body temperature 98.24 [degF] Poole SALAM [facility] 01-17-2023 08:35-0400 Blood Pressure Location Zulema CRAMER [facility] 01-17-2023 08:35-0400 Body temperature 98.06 [degF] Zulema CRAMER [facility] 11-21-2022 12:41-0400 Heart rate 61 /min Martin Arango [facility] 11-21-2022 12:41-0400 SaO2% (BldA) [Mass fraction] 97 % Martin Arango [facility] 11-21-2022 12:41-0400 Diastolic blood pressure 64 mm[Hg] Martin Arango [facility] 11-21-2022 12:41-0400 Mean blood pressure 85 mm[Hg] Martin Arango [facility] 11-21-2022 12:41-0400 Systolic blood pressure 128 mm[Hg] Martindariana Arango [facility] 11-21-2022 12:41-0400 Body temperature 96.98 [degF] Martin Arango [facility] 11-21-2022 12:40-0400 Respiratory rate 16 /min Mratin Arango [facility] 11-21-2022 11:09-0400 Heart rate 66 /min Martin Arango [facility] 11-21-2022 11:09-0400 SaO2% (BldA) [Mass fraction] 100 % Martin Arango [facility] 11-21-2022 11:09-0400 Diastolic blood pressure 68 mm[Hg] Martin Friendster [facility] 11-21-2022 11:09-0400 Mean blood pressure 84 mm[Hg] Martin Arango [facility] 11-21-2022 11:09-0400 Systolic blood pressure 116 mm[Hg] Martin Arango [facility] 11-21-2022 11:09-0400 Body temperature 98.06 [degF] Martin Arango [facility] 11-21-2022 11:08-0400 Respiratory rate 14 /min Martin Arango [facility] 11-21-2022 10:55-0400 Body temperature 97.16 [degF] Martin Arango [facility] 11-21-2022 10:55-0400 Diastolic blood pressure 85 mm[Hg] Martin Arango [facility] 11-21-2022 10:55-0400 Heart rate 65 /min Martin Arango [facility] 11-21-2022 10:55-0400 Mean blood pressure 98 mm[Hg] Martin Arango [facility] 11-21-2022 10:55-0400 Respiratory rate 18 /min Martin Arango [facility] 11-21-2022 10:55-0400 SaO2% (BldA) [Mass fraction] 98 % Martni Arango [facility] 11-21-2022 10:55-0400 Systolic blood pressure 123 mm[Hg] Martin Arango [facility] 11-21-2022 10:45-0400 Mean blood pressure 84 mm[Hg] Martindariana Arango [facility] 11-21-2022 10:45-0400 Respiratory rate 15 /min Martin Arango [facility] 11-21-2022 10:30-0400 Mean blood pressure 73 mm[Hg] Martin Arango [facility] 11-21-2022 10:30-0400 Respiratory rate 13 /min aMrtin Arango [facility] 11-21-2022 10:15-0400 Respiratory rate 1 /min Martin Arango [facility] 11-21-2022 07:43-0400 Mean blood pressure 100 mm[Hg] Martin Arango [facility] 11-21-2022 07:43-0400 Heart rate 62 /min Martin Arango [facility] 10-30-2022 15:25-0400 Blood Pressure Location Elliott Solis [facility] 10-30-2022 15:25-0400 Diastolic blood pressure 80 mm[Hg] Elliott Solis [facility] 10-30-2022 15:25-0400 Heart rate 70 /min Elliott Solis [facility] 10-30-2022 15:25-0400 SaO2% (BldA) [Mass fraction] 95 % Elliott Solis [facility] 10-30-2022 15:25-0400 Systolic blood pressure 126 mm[Hg] Elliott Solis [facility] 10-29-2022 14:56-0400 Diastolic blood pressure 86 mm[Hg] Inessa Grajeda [facility] 10-29-2022 14:56-0400 Mean blood pressure 103 mm[Hg] Inessa Carmenmetz [facility] 10-29-2022 14:56-0400 Systolic blood pressure 138 mm[Hg] Inessa Grajeda [facility] 10-29-2022 14:50-0400 Blood Pressure Location Inessa Grajeda [facility] 10-29-2022 14:50-0400 Body temperature 97.88 [degF] Inessa Grajeda [facility] 10-29-2022 14:50-0400 Diastolic blood pressure 86 mm[Hg] Inessa Grajeda [facility] 10-29-2022 14:50-0400 Heart rate 85 /min Inessa Grajeda [facility] 10-29-2022 14:50-0400 Systolic blood pressure 141 mm[Hg] Inessa Grajeda [facility] 10-20-2022 10:33-0500 Body temperature 95.9 [degF] Santos Landry [facility] 10-20-2022 10:33-0500 Diastolic blood pressure 73 mm[Hg] Santos Landry [facility] 10-20-2022 10:33-0500 Heart rate 62 /min Santos Landry [facility] 10-20-2022 10:33-0500 Respiratory rate 18 /min Santos Landry [facility] 10-20-2022 10:33-0500 SaO2% (BldA) [Mass fraction] 100 % Santos Landry [facility] 10-20-2022 10:33-0500 Systolic blood pressure 151 mm[Hg] Santos Landry [facility] 10-12-2022 13:06-0500 Body temperature 97.7 [degF] Santos Landry [facility] 10-12-2022 13:06-0500 Diastolic blood pressure 71 mm[Hg] Santos Landry [facility] 10-12-2022 13:06-0500 Heart rate 68 /min Santos Landry [facility] 10-12-2022 13:06-0500 Respiratory rate 18 /min Santos Landry [facility] 10-12-2022 13:06-0500 SaO2% (BldA) [Mass fraction] 98 % Santos Landry [facility] 10-12-2022 13:06-0500 Systolic blood pressure 126 mm[Hg] Santos Landry [facility] 10-02-2022 12:31-0500 Blood Pressure Location Inessa Grajeda [facility] 10-02-2022 12:31-0500 Diastolic blood pressure 52 mm[Hg] Inessa Carmenmetz [facility] 10-02-2022 12:31-0500 Heart rate 56 /min Inessa Carmenmetz [facility] 10-02-2022 12:31-0500 SaO2% (BldA) [Mass fraction] 100 % Inessa Carmenmetz [facility] 10-02-2022 12:31-0500 Systolic blood pressure 136 mm[Hg] Inessa Carmenmetz [facility] 09-06-2022 10:09-0500 Blood Pressure Location Zulema CRAMER [facility] 09-06-2022 10:09-0500 Diastolic blood pressure 71 mm[Hg] Poole SALAM [facility] 09-06-2022 10:09-0500 Heart rate 70 /min Poole SALAM [facility] 09-06-2022 10:09-0500 Respiratory rate 22 /min Poole SALAM [facility] 09-06-2022 10:09-0500 Systolic blood pressure 145 mm[Hg] Poole SALAM [facility] 09-06-2022 10:05-0500 Blood Pressure Location Poole SALAM [facility] 09-06-2022 10:05-0500 Diastolic blood pressure 66 mm[Hg] Poole SALAM [facility] 09-06-2022 10:05-0500 Heart rate 66 /min Poole SALAM [facility] 09-06-2022 10:05-0500 Respiratory rate 20 /min Poole SALAM [facility] 09-06-2022 10:05-0500 SaO2% (BldA) [Mass fraction] 100 % Poole SALAM [facility] 09-06-2022 10:05-0500 Systolic blood pressure 94 mm[Hg] Poole SALAM [facility] 09-06-2022 10:00-0500 Heart rate 59 /min Poole SALAM [facility] 09-06-2022 10:00-0500 Respiratory rate 17 /min Poole SALAM [facility] 09-06-2022 10:00-0500 Systolic blood pressure 90 mm[Hg] Poole SALAM [facility] 09-06-2022 09:55-0500 SaO2% (BldA) [Mass fraction] 100 % Poole [employer] [facility] 09-06-2022 09:40-0500 Body temperature 96.62 [degF] Poole [employer] [facility] 09-06-2022 07:35-0500 Body temperature 96.62 [degF] Poole Buy buy teaAM [facility] 07-05-2022 10:00-0500 Body height 165.1 cm Valarie Javier Other [facility] [employer] Other 07-05-2022 10:00-0500 Body mass index (BMI) [Ratio] 28.95 kg/m2 Valarie Javier Other [employer] Other 07-05-2022 10:00-0500 Body temperature 97 [degF] Valarie Javier Other [employer] Other 07-05-2022 10:00-0500 Body weight 78.93 kg Valarie Javier Other [employer] Other 07-05-2022 10:00-0500 Diastolic blood pressure 77 mm[Hg] Valarie Javier Other [employer] Other 07-05-2022 10:00-0500 Respiratory rate 20 /min Valarie Javier Other [employer] Other 07-05-2022 10:00-0500 SaO2% (BldA) [Mass fraction] Valarie Javier Other [employer] Other 07-05-2022 10:00-0500 Systolic blood pressure 137 mm[Hg] Valarie Javier Other [facility] [employer] Other 05-15-2022 13:22-0400 Diastolic blood pressure 65 mm[Hg] Cadyblaine KLEING [facility] 05-15-2022 13:22-0400 Mean blood pressure 85 mm[Hg] Cadyblaine KLEING [facility] 05-15-2022 13:22-0400 Systolic blood pressure 126 mm[Hg] Cadyblaine KLEING [facility] 05-15-2022 13:08-0400 Blood Pressure Location Cadyblaine KLEING [facility] 05-15-2022 13:08-0400 Diastolic blood pressure 88 mm[Hg] Cadyblaine KLEING [facility] 05-15-2022 13:08-0400 Heart rate 62 /min Cadyblaine KLEING [facility] 05-15-2022 13:08-0400 Respiratory rate 18 /min Cadyblaine KLEING [facility] 05-15-2022 13:08-0400 SaO2% (BldA) [Mass fraction] 100 % Cady STANG [facility] 05-15-2022 13:08-0400 Systolic blood pressure 140 mm[Hg] Cady STANG [facility] 03-20-2022 13:16-0400 Diastolic blood pressure 72 mm[Hg] Elliott Solis [facility] 03-20-2022 13:16-0400 Heart rate 73 /min Elliott Solis [facility] 03-20-2022 13:16-0400 Mean blood pressure 87 mm[Hg] Elliott Solis [facility] 03-20-2022 13:16-0400 Respiratory rate 18 /min Elliott Solis [facility] 03-20-2022 13:16-0400 Systolic blood pressure 118 mm[Hg] Elliott Solis [facility] 03-06-2022 10:27-0400 Blood Pressure Location Cady CALIX [facility] 03-06-2022 10:27-0400 Diastolic blood pressure 78 mm[Hg] Cady CALIX [facility] 03-06-2022 10:27-0400 Heart rate 68 /min Cadybliane CALIX [facility] 03-06-2022 10:27-0400 Respiratory rate 18 /min Cady CALIX [facility] 03-06-2022 10:27-0400 SaO2% (BldA) [Mass fraction] 98 % Cady CALIX [facility] 03-06-2022 10:27-0400 Systolic blood pressure 137 mm[Hg] Cadyblaine CALIX [facility] 01-11-2022 15:06-0400 Diastolic blood pressure 83 mm[Hg] Poole SALAM [facility] 01-11-2022 15:06-0400 Heart rate 61 /min Poole SALAM [facility] 01-11-2022 15:06-0400 Systolic blood pressure 136 mm[Hg] Poole SALAM [facility] 12-11-2021 12:00-0400 Blood Pressure Location Donaldo PEARSON [facility] 12-11-2021 12:00-0400 Diastolic blood pressure 75 mm[Hg] Donaldo PEARSON [facility] 12-11-2021 12:00-0400 Heart rate 78 /min Donaldo PEARSON [facility] 12-11-2021 12:00-0400 Systolic blood pressure 107 mm[Hg] Donaldo PEARSON [facility] Encounters Encounter Date Encounter Type Care Provider Facility Start: 12-31-2023 ambulatory SHERI JIMENES Facili ty:[facility] Start: 09-20-2023 Refill Nuria moreira MD Work Phone: [facility] [phone] Comment on above: Chronic bilateral lo w back pain with bilateral sciatica; Diabetic peripheral neuropathy (CMS/HCC); Lumbar radiculopathy Start: 09-19-2023 End: 09-19-2023 ambulatory Valarierohan Herrera Other [employer] Other Start: 09-19-2023 Telephone encounter Valarie Herrera [facility] Start: 09-17-2023 End: 09-18-2023 ambulatory SHERI JIMENES Facility:[facility] Start: 09-17-2023 End: 09-17-2023 Patient encounter procedure SHERI JIMENES [facility] Start: 09-16-2023 End: 09-19-2023 ambulatory ROBERT GIRON [facility] Start: 09-08-2023 Refill Robert augustin DO Work Phone: [facility] Start: 09-02-2023 Orders Only Robert augustin DO Work Phone: [facility] Comment on above: Anxiety state Start: 08-28-2023 End: 08-28-2023 ambulatory NURIA SANCHEZ Not Available Start: 08-27-2023 End: 08-27-2023 ambulatory Valarie Javier Other [employer] Other Start: 08-27-2023 Office outpatient vi sit 25 minutes Valarie Javier [facility] Start: 08-23-2023 Orders Only Robert augustin DO Work Phone: [facility] Comment on above: 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, sciatica laterality unspecified Start: 08-20-2023 End: 08-20-2023 ambulatory ANDRIA CARTER Not Available Start: 08-16-2023 Refill Robert augustin DO Work Phone: [facility] Comment on above: Oral thrush Start: 08-09-2023 End: 08-09-2023 ambulatory FRENCH LEVINE Not Available Start: 08-08-2023 End: 08-08-2023 ambulatory MARTIN ARANGO Not Available Start: 08-06-2023 End: 08-06-2023 ambulatory ИВАН TATMANJULA Not Available Start: 08-01-2023 End: 08-01-2023 ambulatory ИВАН TATTERSALL Not Available Start: 07-25-2023 End: 07-26-2023 ambulatory Elliott SOLIS [facility] Start: 07-25-2023 End: 07-25-2023 Patient encounter procedure Elliott SOLIS [facility] Start: 07-22-2023 End: 07-22-2023 ambulatory RITCHIE KIRBY Not Available Start: 07-18-2023 End: 07-18-2023 ambulatory ИВАН TATTERSALL Not Available Start: 07-08-2023 End: 07-08-2023 ambulatory ROSHAN HOLLOWAY Not Available Start: 07-05-2023 End: 07-06-2023 ambulatory Cady L ERNIEPamela [facility] Start: 07-05-2023 End: 07-05-2023 Patient encounter procedure Cadyblaine CALIX [facility] Start: 07-04-2023 End: 07-04-2023 ambulatory MARTIN Jerome CONCHITA Not Available Start: 06-24-2023 End: 06-25-2023 ambulatory NURIA SANCHEZ [facility] Start: 06-14-2023 End: 06-15-2023 ambulatory Cady Amato ERNIEPamela [facility] Start: 06-14-2023 End: 06-14-2023 Patient encounter procedure Cady CALIX [facility] Start: 05-22-2023 End: 05-23-2023 ambulatory Inessa Grajeda Facility:[facility] Start: 05-22-2023 End: 05-22-2023 Patient encounter procedure Inessa Grajeda [facility] Start: 05-20-2023 End: 05-21-2023 ambulatory Cady CALIX [facility] Start: 05-20-2023 End: 05-20-2023 Patient encounter procedure Cady CALIX [facility] Start: 05-16-2023 End: 05-17-2023 ambulatory Elliott SOLIS Facility[facility] Start: 04-04-2023 End: 04-04-2023 ambulatory Valarie Javier Other [employer] Other Start: 04-04-2023 Telephone encounter Valarie Javier [facility] Start: 04-03-2023 End: 04-03-2023 ambulatory Valarie Javier Facility:[facility] Start: 04-03-2023 End: 04-03-2023 ambulatory DO Robert Furlong Work Phone: [facility] Work Phone: Start: 04-03-2023 End: 04-03-2023 Patient encounter procedure DO Robert Furlong Work Phone: [facility] [address] Work Phone: Start: 02-26-2023 End: 02-26-2023 ambulatory Valarie Javier Other [employer] [facility] [employer] Other Start: 02-26-2023 Office outpatient vi sit 25 minutes Valarie Javier [facility] Start: 01-30-2023 End: 01-31-2023 ambulatory HSERI JIMENES Facility:[facility] Start: 01-29-2023 End: 01-30-2023 ambulatory Inessa Grajeda Facility:[facility] Start: 01-17-2023 End: 01-18-2023 ambulatory Zulema CRAMER [facility] Start: 01-17-2023 End: 01-17-2023 Patient encounter procedure Zulema CRAMER [facility] Start: 12-22-2022 End: 01-16-[address] DOCTOR GALLO Facility: Start: 12-21-2022 End: 12-22-[address] DOCTOR GALLO Facility: Start: 11-29-2022 End: 11-29-[address] ROBERT GIRON Facility: Start: 11-26-2022 End: 11-26-[address] ROBERT GIRON Facility: Start: 11-21-2022 End: 11-21-2022 ambulatory Martin Arango Facility[place] Start: 11-21-2022 End: 11-21-2022 Admission to same day surgery center Martin Arango [facility] Start: 11-16-2022 End: 11-17-2022 ambulatory Martin Queenie Conchita [facility] Start: 11-13-2022 End: 11-14-2022 ambulatory Cady Lima FIFI Facility:[facility] Start: 11-09-2022 End: 11-10-2022 ambulatory Inessa Queenie Nicci Facility:[facility] Start: 10-30-2022 End: 10-31-2022 ambulatory Elliott SOLIS Facility:[facility] Start: 10-30-2022 End: 10-30-2022 Patient encounter procedure Elliott Solis [facility] Start: 10-29-2022 End: 10-30-2022 ambulatory [facility]ie [facility] Start: 10-29-2022 End: 10-29-2022 Patient encounter procedure Inessa Queenie Nicci [facility] Start: 10-20-2022 End: 10-20-2022 Emergency department patient visit Santos Landry Facility:[facility] Start: 10-20-2022 End: 10-20-2022 Emergency department patient visit Santos Landry [facility] Start: 10-19-2022 End: 10-20-2022 ambulatory Inessa Queenie Nicci Facility[facility] Start: 10-12-2022 End: 10-12-2022 Emergency department patient visit Santos Landry Facility:[facility] Start: 10-12-2022 End: 10-12-2022 Emergency department patient visit Santos Landry [facility] Start: 10-02-2022 End: 10-03-2022 ambulatory In[facility]ie [facility]ci [facility] Start: 10-02-2022 End: 10-02-2022 Patient encounter procedure Inessa Queenie Nicci [facility] Start: 09-14-2022 End: 11-01-2022 Pre-admission assessment Zulema CRAMER [facility] Start: 09-10-2022 End: 09-11-[address] FREDERICK MAHARAJ . Facility:[facility] Start: 09-06-2022 End: 09-06-2022 Patient encounter procedure Zulema CRAMER [facility] Start: 09-04-2022 End: 09-04-2022 ambulatory Valarie Javier Other [employer] Other Start: 09-04-2022 Telephone encounter Valarie Javier [facility] Start: 08-10-2022 ambulatory ELIUD JAJA Facility :[facility] Start: 08-06-2022 End: 08-07-[address] FREDERICK MAHARAJ . Facility:[facility] Start: 07-05-2022 End: 07-05-2022 ambulatory Valarie Javier Other [employer] Other Start: 07-05-2022 Office outpatient vi sit 25 minutes Valarie Javier [facility] Start: 07-04-2022 End: 07-05-2022 ambulatory VALARIE JAVIER Facility:[facility] Start: 07-03-2022 End: 07-03-[address] RAULITO CHA . Facility:[facility] Start: 06-26-2022 End: 11-28-2022 Recurring Zulema CRAMER [facility] Start: 06-08-2022 End: 06-09-[address] DOCTOR GALLO Facility:[facility] Start: 05-15-2022 End: 05-15-2022 Patient encounter procedure Cady CALIX [facility] Start: 05-09-2022 End: 09-09-2022 Recurring Zulema CRAMER [facility] Start: 05-09-2022 End: 06-19-2022 Pre-admission assessment Zulema CRAMER [facility] Start: 04-30-2022 End: 05-01-[address] ROBERT GIRON Facility:[facility] Start: 04-09-2022 End: 05-02-2022 Pre-admission assessment Donaldo PEARSON [facility] Start: 04-06-2022 End: 04-07-2022 ambulatory ELIUD JAJA Facility:[facility] Start: 04-01-2022 End: 04-01-2022 ambulatory JAMAR CAROLA . Facility:[facility] Start: 03-28-2022 End: 03-29-[address] DOCTOR GALLO Facility:[facility] Start: 03-20-2022 End: 03-20-2022 Patient encounter procedure Elliott Solis [facility] Start: 03-13-2022 End: 03-13-2022 ambulatory JAMAR SRIVASTAVA . Facility:[facility] Start: 03-06-2022 End: 09-07-2022 Pre-admission assessment Elliott Solis [facility] Start: 03-06-2022 End: 03-06-2022 Patient encounter procedure Cady CALIX [facility] Start: 02-08-2022 End: 06-20-2022 Recurring Zulema CRAMER [facility] Start: 02-08-2022 End: 02-09-2022 Pre-admission assessment Zulema CRAMER [facility] Start: 02-01-2022 End: 02-01-2022 Patient encounter procedure Poolevenu CURRYAM [facility] Start: 01-11-2022 End: 05-02-2022 Recurring Zulema CURRYAM [facility] Start: 01-11-2022 End: 01-11-2022 Patient encounter procedure Poole SALAM [facility] Start: 12-20-2021 End: 03-22-2022 Recurring Zulema CURRYAM [facility] Start: 12-11-2021 End: 12-11-2021 Patient encounter procedure Donaldo PEARSON [facility] Start: 11-21-2021 End: 11-21-2021 Patient encounter procedure Inessa Grajeda [facility] Start: 10-12-2021 End: 01-30-2022 Recurring Martin Arango [facility] Procedures Date Procedure Procedure Detail Performing Clinician Start: 06-20-2023 Adult depression screening assessment Robert Furlong DO Work Phone: Start: 04-03-2023 CT of lungs DO Robert Vdolgng Work Phone: Start: 01-21-2023 Colonoscopy Robert Furlong DO Work Phone: Start: 01-17-2023 Colonoscopy Poole SALAM Start: 11-21-2022 Román guerrero (disorder) Martin Arango Start: 11-21-2022 Metatarsal bone structure (body structure) Martin Arango Start: 10-22-2022 Microalbumin [Mass/volume] in Urine by Test strip Robert Giron DO Work Phone: Start: 09-10-2022 Mammography Robert Giron DO Work Phone: Start: 03-29-2022 Esophagogastroduodenoscopy Zulema RCAMER Comment on above: esophageal dilation, small gastric bezoa r Start: 11-08-2021 Peroneal tendon (body structure) Inessa [facility] Comment on above: right peroneal tendon repair with synove ctomy Start: 06-26-2021 Esophagogastroduodenoscopy Inessa Gates amber Comment on above: dilation Start: 05-16-2021 Urodynamic [...] Start: 05-07-2018 Decompression of tarsal tunnel Inessa Ron sams Comment on above: left Start: 02-15-2016 Right tarsal tunnel release Inessa Yareli colón Start: 08-17-2015 Left instep plantar fasciotomy with division of soft tissue & fascia & muscle. Inessa Gatesz Start: 06-22-2015 right instep plantar fasciotomy with division of muscle and fascia Inessa Grajeda Appendectomy Inessa Grajeda Arthroscopy of knee Inessa Bob Breast surgery (qualifier value) Inessa Grajeda Comment on above: x 2 - removal of milk ducts Cholecystectomy Inessa colón Colonoscopy Inessa Grajeda Colonoscopy Poole SALAM Cystopexy Inessa Grajeda Decompression of median nerve Inessa Grajeda Comment on above: x 2 Decompression of ulnar nerve Inessa Grajeda Comment on above: x 2 Esophagogastroduodenoscopy B eth Nicci Esophagogastroduodenoscopy M er SALAM Comment on above: Antral erosions Excision of ganglion cyst Be Nicci Extracorporeal shock wave lithotripsy of calculus of kidney Inessa Grajeda Hysterectomy Inessa Grajeda ingrown toenail removal 10 M aher SALAM Comment on above: x3 ingrown toenail removal 11 M aher SALAM Comment on above: x3 ingrown toenail removal 9 Be th Nicci Comment on above: x3 Ligation of fallopian tube B eth Nicci 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) Inessa Grajeda Comment on above: x 6 salpingectomy with u nilateral oophorectomy Inessa Grajeda Sinus (morphologic abnormality) Inessa Grajeda Comment on above: x 2 Structure of tarsal canal (body structure) Inessa Grajeda Comment on above: x 2 Ulnar nerve at elbow (body structure) Martin Arango Plan of Treatment Date Care Activity Detail Author Start: 01-21-2033 Screening for malignant neoplasm of colon Colonoscopy [facility] Start: 08-05-2024 Adult BMI Screening Adult BMI Screening [facility] Start: 08-05-2024 Tobacco Screening Tobacco Screening [facility] Start: 07-10-2024 Adult BMI Follow Up Plan Adult BMI Follow Up Plan [facility] Start: 07-08-2024 Diabetic foot examination Diabetic Foot Exam [facility] Start: 06-20-2024 Depression Screening Depression Screening [facility] Start: 10-28-2023 End: 10-28-2023 Patient encounter procedure 10/28/2023 3:20 PM EDT Office Visit [facility] [address] [facility] [address] [place] [address] Nuria Sanchez MD [id number] [facility] [address] [address] [facility] Start: 10-23-2023 Urine screening for protein Urine Microalbumin [facility] Start: 10-17-2023 End: 10-17-2023 Patient encounter procedure [facility] Start: 10-09-2023 End: 10-09-2023 Patient encounter procedure 10/09/2023 8:30 AM EST Procedure Visit [facility] Martin Arango DPM [address] [facility] [address] [place] [address] [facility] Start: 09-26-2023 End: 09-26-2023 Patient encounter procedure 09/26/2023 3:10 PM EST Office Visit [facility] [address] [facility] [address] [place] [address] Martin Arango DPM [address] [facility] [address] [place] [address] [facility] Start: 09-16-2023 End: 09-16-2023 ambulatory 09/16/2023 8:30 AM EST Infant Monitor [facility] Monitor [address] [facility] [address] [place] [address] [facility] Infant Monitor Start: 09-10-2023 Screening for malignant neoplasm of breast Mammogram [facility] Start: 2020 Administration of varicella zoster vaccine Zoster (Shingles) Vaccine (1 of 2) [facility] Start: 1989 DTaP,Tdap and Td Vaccines (1 - Tdap) DTaP,Tdap and Td Vaccines (1 - Tdap) [facility] Start: 1970 Glaucoma screening Diabetic Ophthalmology Exam [facility] Immunizations Immunization Date Immunization Notes Care Provider Fa anjana 06-24-2023 influenza virus vaccine, unspecified formulation SHERI JIMENES [facility] 04-15-2020 influenza virus vaccine, unspecified formulation Cadyblaine CALIX [facility] 06-02-2019 hepatitis A vaccine, adult dosage Cady ERNIEG [facility] 11-21-2018 hepatitis A vaccine, adult dosage Cady ERNIEG [facility] NEGATED: Highlighted row has not occurred!04-29-2023 influenza virus vaccine, unspecified formulation Cady FIFI [facility] NEGATED: Highlighted row has not occurred!10-29-2022 influenza virus vaccine, unspecified formulation Inessa Grajeda [facility] NEGATED: Highlighted row has not occurred!09-14-2022 influenza virus vaccine, unspecified formulation Inessa Grajeda [facility] NEGATED: Highlighted row has not occurred!05-09-2022 influenza virus vaccine, unspecified formulation Cady CALIX [facility] NEGATED: Highlighted row has not occurred!12-11-2021 influenza virus vaccine, unspecified formulation Donaldo PEARSON [facility] NEGATED: Highlighted row has not occurred!12-11-2021 SARS-CoV-2 (COVID-19) Ad26 vaccine, recombinant Donaldo PEARSON [facility] NEGATED: Highlighted row has not occurred!11-07-2021 influenza virus vaccine, unspecified formulation Inessa Grajeda [facility] NEGATED: Highlighted row has not occurred!09-04-2021 SARS-CoV-2 (COVID-19) Ad26 vaccine, recombinant Inessa Grajeda [facility] Payers Date Payer Category Payer Self-pay [id number] 2017 Medicaid [id number] 1970 Unknown [id number] 2.16.84 0.1.478886.3.579.2.593 1970 Unknown [id number] 2.16.84 0.1.221493.3.579.2.593 1970 Unknown [id number] 2.16.84 0.1.908256.3.579.2.593 1970 Unknown [id number] 2.16.84 0.1.188982.3.579.2.593 1970 Unknown [id number] 2.16.84 0.1.266621.3.579.2.593 1970 Unknown [id number] 2.16.84 0.1.949776.3.579.2.593 1970 Unknown [id number] 2.16.84 0.1.308303.3.579.2.593 1970 Unknown [id number] 2.16.84 0.1.824848.3.579.2.593 1970 Unknown [id number] 2.16.84 0.1.092119.3.579.2.593 1970 Unknown [id number] 2.16.84 0.1.214648.3.579.2.593 1970 Unknown [id number] 2.16.84 0.1.724342.3.579.2.593 1970 Unknown [id number] 2.16.84 0.1.143413.3.579.2.593 1970 Unknown [id number] 2.16.84 0.1.526883.3.579.2.593 1970 Unknown [id number] 2.16.84 0.1.870275.3.579.2.593 1970 Unknown [id number] 2.16.84 0.1.192378.3.579.2.593 1970 Unknown [id number] 2.16.8 40.1.901959.3.579.2.176 1970 Unknown [id number] 2.16.84 0.1.838808.3.579.2.1259 1970 Unknown [id number] 2.16.840 .1.216807.3.579.2.1259 1970 Unknown [id number] 2.16.840 .1.804985.3.579.2.1259 1970 Unknown [id number] 2.16.840 .1.217014.3.579.2.9 1970 Unknown [id number] 2.16.840 .1.372687.3.579.2.9 1970 Unknown [id number] 2.16.840 .1.557426.3.579.2.9 1970 Unknown [id number] 2.16.840 .1.297038.3.579.2.9 1970 Unknown [id number] 2.16.840 .1.730655.3.579.2.9 1970 Unknown [id number] 2.16.840 .1.339971.3.579.2.9 1970 Unknown [id number] 2.16.840 .1.871480.3.579.2.9 1970 Unknown [id number] 2.16.8 40.1.543487.3.579.2.72 1970 Unknown [id number] 2.16.8 40.1.852141.3.579.2.72 1970 Unknown [id number] 2.16.8 40.1.507772.3.579.2. 1970 Unknown [id number] 2.16.8 40.1.359506.3.579.2.727 1970 Unknown [id number] 2.16.8 40.1.705633.3.579.2.727 1970 Unknown [id number] 2.16.8 40.1.030716.3.579.2.72 1970 Unknown [id number] 2.16.8 40.1.302721.3.579.2.72 1970 Unknown [id number] 2.16.8 40.1.351042.3.579.2.727 1970 Unknown [id number] 2.16.8 40.1.421420.3.579.2.72 1970 Unknown [id number] 2.16.8 40.1.943797.3.579.2.727 1970 Unknown [id number] 2.16.8 40.1.021767.3.579.2.727 1970 Unknown [id number] 2.16.8 40.1.264856.3.579.2.727 1970 Unknown [id number] 2.16.8 40.1.719717.3.579.2.727 1970 Unknown [id number] 2.16.8 40.1.217665.3.579.2.727 1970 Unknown [id number] 2.16.8 40.1.373126.3.579.2.727 1970 Unknown [id number] 2.16.8 40.1.617216.3.579.2.727 1970 Unknown [id number] 2.16.8 40.1.193256.3.579.2.727 1970 Unknown [id number] 2.16.8 40.1.734549.3.579.2.727 1970 Unknown [id number] 2.16.8 40.1.271705.3.579.2.727 1970 Unknown [id number] 2.16.8 40.1.439638.3.579.2.727 1970 Unknown [id number] 2.16.8 40.1.423010.3.579.2.727 1970 Unknown [id number] 2.16.8 40.1.757366.3.579.2.1286 1959 Medicaid [id number] 1959 Private Health Insurance [id number] 1959 Unknown [id number] 1959 Unknown [id number] Unknown [id number] 2.16.8 40.1.391532.3.579.2.531 Social History Date Type Detail Facility Start: 11-07-2021 End: 09-17-2023 Tobacco smoking status Heavy tobacco smoker (finding) [facility] Comment on above: 1 pack per day smoke r Start: 07-08-2023 End: 08-28-2023 Sex Assigned At Female [facility] [place] Comment on above: 1 ppd smokes 1 ppd. Tobacco smoking status Never [facility] Start: 1970 Sex Assigned At Female F [facility] Tobacco smoking status No Smokin g Status Entered [facility] Start: 01-04-2022 End: 04-15-2023 Tobacco smoking status NHIS Smoker (finding) [facility] Start: 07-08-2023 Tobacco smoking stat us NHIS Ex-smoker [facility] End: 04-15-2023 History of tobacco use Cigarette Smoker [facility] Start: 07-08-2023 End: 08-28-2023 Cigarettes smoked current (pack per day) - Reported 0.8 [facility] Start: 06-20-2023 End: 07-08-2023 Tobacco use and exposure Smokeless tobacco non-user [facility] Start: 08-05-2023 End: 08-28-2023 Alcohol intake Ex-drinker (finding) [facility] Has the [employer], or [employer] threatened to shut off services in your home in past 12Mo No [facility] Are you now , , , , never or living with a partner? [facility] How often to you hav e a drink containing alcohol? Monthly or less [facility] How many standard drinks containing alcohol do you have on a typical day? 3 or 4 [facility] How often do you hav e 6 or more drinks on 1 occasion? Never [facility] How hard is it for y ou to pay for the very basics like food, housing, medical care, and heating Not very hard [facility] Do you feel stress - tense, restless, nervous, or anxious, or unable to sleep at night because your mind is troubled all the time - these days [OSQ] To some extent [facility] Start: 07-08-2023 Tobacco Comment Smoke 1 PPD x 10 yea rs [facility] Start: 1970 Sex Assigned At Not on file P [facility] Start: 06-20-2023 Tobacco smoking stat us KSIS Smokes tobacco daily [facility] History of tobacco use Passive smoker [facility] Start: 02-21-2023 Alcohol Comment caffeine 1-2 c ups per day [facility] Medical Equipment Procedure Code Equipment Code Equipment Origin al Text Equipment Identifier Dates Phacoemulsification of cataract with intraocular lens implantation Posterior-chamber intraocular lens, pseudophakic ()[id number] FDA Start: 12-14-2021 Phacoemulsification of cataract with intraocular lens implantation Posterior-chamber intraocular lens, pseudophakic ()[id number] FDA Start: 01-04-2022 HAMMERTOE REPAIR Brown DPM, [...] 09-17-2023 Functional Status N/A [facility] 07-25-2023 Functional Status No [facility] 07-05-2023 Functional Status No [facility] 05-20-2023 Functional Status No [facility] 01-17-2023 Functional Status N/A [facility] 10-30-2022 Functional Status No [facility] 10-29-2022 Functional Status N/A [facility] 10-20-2022 Functional Status N/A [facility] 10-12-2022 Functional Status N/A [facility] 10-02-2022 Functional Status N/A [facility] 09-06-2022 Functional Status N/A [facility] 05-15-2022 Functional Status No [facility] 03-06-2022 Functional Status N/A [facility] Clinical Notes 04-19-2021 to 09-17-2023 Note Date [...] Follow these instructions at home: Medicines Take cqnn-txw-kqogkfp and prescription medicines only as told by [...] or the blood stops without treatment. Take qtbm-tst-pojytti and prescription medicines only as told by your health care provider. Drink enough fluid to keep your urine pale yellow. This information is not intended to replace advice given to you by your health care provider. Make sure you discuss any questions you have with your health care provider. Document Revised: 04/05/2021 Document Reviewed: 04/05/2021 [employer] Patient Education 2022 TapToLearn. Follow Up Care 06/13/2023 09:13:04 With:SHERI JIMENES PA-C, URL Address: [address] [place], [place] [address] [address] [id number] When: Unknown Comments:3 mos (restart med) [facility] 08-27-2023 Evaluation note Encounter Date Diagnosis Assessment Notes Aug, Chronic obstructive pulmonary disease, unspecified (ICD-10 - J44.9) Aug, Tobacco abuse (ICD-10 - Z72.0) Stop smoking. Chest CT in 03/2023 showed emphysema, no nodules. Next LDCT screening will be scheduled for 2023. Aug, Diastolic dysfunction (ICD-10 - I51.9) Aug, Nicotine dependence, cigarettes, uncomplicated (ICD-10 - F17.210) [employer] Other 12-07-2023 NotePROCEDURE: CARDIAC EVENT MONITOR 14 [...] 6 episodes. Clinical correlation suggested. READ BY: Yandel Jett M.D. lr Dictated: 07/23/2023 [id number] Transcribed: 07/23/2023 cc:DELORES [facility] HospitalComment on above:Result Comment: Electronically Signed By: Johnie WALSH, Yandel Mckinnon\.br\Date and Time Signed: 07/25/23 08:27 [id number] Evaluation note* Encounter Date Diagnosis Assessment Notes [...] Nicotine dependence, cigarettes, uncomplicated (ICD-10 - F17.210) [employer] Other 06-05-2023 Note [id number]:127[facility] 01-17-2023 Hospital Discharge instructions Patient Education 01/17/2023 09:45:42 Colonoscopy, Care After Surgery Salam (CUSTOM) Colonoscopy Care After Surgery Please read the instructions outlined below and refer to this sheet in the next few weeks. These discharge instructions provide you with general information on caring [facility] Your doctor may also give you specific [...] worse throughout the day. 01/17/2023 09:45:38 Hemorrhoids, Ftdn-og-Xvim Hemorrhoids Hemorrhoids are swollen veins that may [...] 3 times a day. General instructions Take gteh-tvi-vbmxmdg and prescription medicines only as told by [...] provider. Document Revised: 02/14/2022 Document Reviewed: 02/14/2022 [employer] Patient Education 2022 TapToLearn. 01/17/2023 09:45:31 Colon Polyps Colon Polyps Colon [...] hard liquor (44 mL). General instructions Take vojy-qny-uzpepzt and prescription medicines only as told by [...] provider. Document Revised: 11/23/2020 Document Reviewed: 11/23/2020 [employer] Patient Education 2022 TapToLearn. Follow Up Care 09/14/2022 14:04:03 With:BELA WALSH, DHAVAL Poole, [facility] Address: [address] [place] [address]. [address] [place] [address] When: Unknown Comments:Office will call to schedule follow up appointment [facility]04-05-2023 Evaluation + Plan noteExtracted from: Title:Anesthesia Pre-Op Note - LILLY Author:Brody Raza DO Date:11/21/22 Plan [place] [employer] Anesthesiologists#(ASA) physical status classification: Class III. Anesthetic Preoperative Plan Anesthesia: General. . Anesthetic plan, risks, benefits, and alternatives discussed with the patient and/or family. Risks discussed: nausea, vomiting, headache, sore throat, aspiration, airway. Patient verbalized understanding. Informed consent was given. Consent was signed by the patient. Future Appointments Appointment Date:12/10/2022 02:40:00 PM Scheduled Provider:Inessa Grajeda CNP Location[facility] Appointment Type:BADH Follow Up Appointment Date:01/17/2023 09:50:00 AM Scheduled Provider: Location:[facility] Appointment Type:Surgery FT Appointment Date:01/30/2023 01:20:00 PM Scheduled Provider:SHERI JIMENES PA-C Location:[facility] Appointment Type:URO Office Visit Future Scheduled Tests Laboratory* Clostridium difficile by PCR 05/09/22 * CBC w/ Auto Diff 05/09/22 * Comprehensive Metabolic Panel 05/09/22 [facility]04-05-2023 Hospital Discharge instructions Patient Education 11/21/2022 11:26:16 Foot Cryocuff Patient Instructions - FT (CUSTOM) 11/21/2022 11:26:16 Post Op Patient Instructions - FT (CUSTOM) 11/21/2022 08:48:42 Conchita - Post Operative Instructions (Revised 07/29/19) (Custom) ([id number]) (Custom) [place], [place] Martin Arango, SALLIE, FACFAS POST OPERATIVE INSTRUCTIONS Keep bandage clean [...] feel free to call the doctor at: [phone] or [phone] Arango paged. Patient signatureDate Dr.Nicholas Arango, DPNnamdi, FACFAS Date Revised: 09-26 [facility]04-04-2023 Note [id number]:127[facility] 11-20-2022 [id number]:127[facility]03-13-2023 Hospital Discharge instructions Patient Education 10/29/2022 [...] water added (diluted fruit juice). Eat bland, ktwx-gr-aiyfdg foods in small amounts as you are able. These foods include bananas, applesauce, rice, lean meats, toast, and crackers. Avoid drinking fluids that contain a lot of sugar or caffeine, such as energy drinks, sports drinks, and soda. Avoid alcohol. Avoid spicy or fatty foods. General instructions Take nylo-rvi-qknkddc and prescription medicines only as told by your health care provider. Rest at home while you recover. Drink enough fluid to keep your urine pale yellow. Breathe slowly and deeply when you feel nauseous. Avoid smelling things that have strong odors. Wash your hands often using soap and water. If soap and water are not available, use hand marble mechanic helper. Make sure that all people in your [...] recommendations for eating and drinking and take pktw-izq-qydzcoe and prescription medicinesonly as told by your [...] 09/12/2005 Document Revised: 01/13/2019 Document Reviewed: 01/13/2019 [employer] Patient Education 2020 TapToLearn. Follow Up Care 10/02/2022 13:26:11 With:Inessa Grajeda CNP Address: When:1 to 2 weeks Comments:Following colonoscopy. [facility] 03-04-2023 Hospital Discharge instructions Patient [...] Treatment for this condition includes: Antibiotic medicine. Ksrx-qwk-zoujggr medicines to treat discomfort. Drinking enough water [...] Follow these instructions at home: Medicines Take wddf-bqd-rjcvnzu and prescription medicines only as told by [...] 05/15/2006 Document Revised: 07/23/2019 Document Reviewed: 02/12/2019 [employer] Patient Education 2020 TapToLearn. 10/20/2022 12:23:03 Antibiotic Medicine, Adult Antibiotic Medicine, [...] 04/17/2005 Document Revised: 02/03/2019 Document Reviewed: 08/06/2017 [employer] Patient Education 2020 TapToLearn. Follow Up Care 10/20/2022 10:33:51 With:ROBERT GIRON Address: [address] [place] [address] Business (1) When:10/23/2022 12:22:53 Comments:Call the office of [...] you develop any new or worsening symptoms. [facility]03-04-2023 Evaluation + Plan noteExtracted from: Title:ED Note Author:Santos Landry DO Date: Acute UTI (N39.0: Urinary tr act infection, site not specified) Orders: azithromycin, = 1 packet(s), Oral, As Directed, as directed on package labeling, X 5 day(s), # 6 tab(s), Refills(s) 0, Pharmacy: [id number], 163, cm, 10/20/22 10:48:00 EST, Height/Length [...] Appointments Appointment Date:10/23/2022 09:00:00 AM Scheduled Provider: [facility] Appoint[facility] Type:US Abdominal/Pelvis (FT) Appointment Date:10/29/2022 02:40:00 PM Scheduled Provider:Inessa Grajeda CNP Location[facility] Appointment Type:BADH Follow Up Appointment Date:10/30/2022 03:00:00 PM Scheduled Provider:Elliott Solis MD [facility]ment Type:Cardiology Follow Up (FT) Appointment Date:11/07/2022 02:40:00 PM Scheduled Provider: Location:[facility] Appointment Type:Surgery FT Appointment Date:01/30/2023 01:20:00 PM Scheduled Provider:SHERI JIMENES PA-C Location:[facility] [place] Appointment Type:URO Office Visit Diagnostic Tests Pending * Urine Culture 10/20/22 Future Scheduled Tests Laboratory* Clostridium difficile by PCR 05/09/22 * CBC w/ Auto Diff 05/09/22 * Comprehensive Metabolic Panel 05/09/22 Radiology* US Abdomen Complete 10/23/22 [facility]02-24-2023 Hospital Discharge instructions Patient Education 10/12/2022 14:38:59 [...] take to decrease my back pain? Take dirl-hnh-tmszyfk or prescription medicines only as told by [...] and in- person support groups through: The [place] [employer] Association: https://theacpa.org/Support-Groups The [place]. Pain [...] 08/19/2016 Document Revised: 07/18/2018 Document Reviewed: 04/13/2017 [employer] Patient Education 2020 TapToLearn. Follow Up Care 10/12/2022 12:55:29 With:ROBERT GIRON Address: [address] [place], [place] [address] [address] Business (1) When:10/15/2022 14:38:47 Comments:Call [...] you develop any new or worsening symptoms. [facility]02-24-2023 Evaluation + Plan noteExtracted from: Title:ED Note [...] Appointments Appointment Date:10/23/2022 09:00:00 AM Scheduled Provider: Location:[facility] Appointment Type:US Abdominal/Pelvis (FT) Appointment Date:10/29/2022 02:40:00 PM Scheduled Provider:Inessa Grajeda CNP Location:[facility] Appointment Type:BADH Follow Up Appointment Date:10/30/2022 03:00:00 PM Scheduled Provider:Elliott Solis MD [facility] Appointment Type:Cardiology Follow Up (FT) Appointment Date:11/07/2022 02:40:00 PM Scheduled Provider: Location:[facility] Appointment Type:Surgery FT Appointment Date:01/30/2023 01:20:00 PM Scheduled Provider:SHERI JIMENES PA-C [facility] Appointment Type:URO Office Visit Future Scheduled Tests Laboratory* Fecal WBC Lactoferrin 05/09/22 * Giardia lamblia, Direct Detection EIA 05/09/22 * O & P Exam, Routine 05/09/22 * Clostridium difficile by PCR 05/09/22 * Enteric Panel by PCR 05/09/22 * CBC w/ Auto Diff 05/09/22 * Comprehensive Metabolic Panel 05/09/22 Radiology* US Abdomen Complete 10/23/22 [facility]02-14-2023 Hospital Discharge instructions Patient Education 10/02/2022 13:01:04 [...] water added (diluted fruit juice). Eat bland, cjdg-hd-bughkd foods in small amounts as you are able. These foods include bananas, applesauce, rice, lean meats, toast, and crackers. Avoid fluids that contain a lot of sugar or caffeine, such as energy drinks, sports drinks, and soda. Avoid alcohol. Avoid spicy or fatty foods. General instructions Take ogha-ute-ygqlcnt and prescription medicines only as told by your health care provider. Drink enough fluid to keep your urine pale yellow. Wash your hands often using soap and water. If soap and water are not available, use hand marble mechanic helper. Make sure that all people in your [...] eating and drinking to prevent dehydration. Take bwmt-iag-lhyayed and prescription medicines only as told by [...] 08/05/2006 Document Revised: 11/27/2019 Document Reviewed: 01/13/2019 [employer] Patient Education 2020 [employer]ToLearn. Follow Up Care 09/21/2022 11:43:03 With:Inessa Grajeda CNP Address: When:1 month [facility] 01-19-2023 Evaluation + Plan noteExtracted from: Title:ANES Post-operative Note Author:Johny Oseguera MD Date:09/06/22 Plan Transfer/Discharge: Transfer/Discharge Discharge when meets criteria ( To home ). Extracted from: Title:ANES Pre-operative Note Author:Lillie Oseguera MD SDanica Date:09/06/22 Plan [place] Society of Anesthesiologists (ASA) physical status classification: Class III. Anesthetic Preoperative Plan: Anesthesia General, and Monitored anethesia care. Future Appointments Appointment Date:10/30/2022 03:00:00 PM Scheduled Provider:Elliott Solis MD [facility] Appointment Type:Cardiology Follow Up (FT) Appointment Date:01/30/2023 01:20:00 PM Scheduled Provider:SHERI JIMENES PA-C Location:[facility] Appointment Type:URO Office Visit Future Scheduled Tests Laboratory* Fecal WBC Lactoferrin 05/09/22 * Giardia lamblia, Direct Detection EIA 05/09/22 * O & P Exam, Routine 05/09/22 * Clostridium difficile by PCR 05/09/22 * Enteric Panel by PCR 05/09/22 * CBC w/ Auto Diff 05/09/22 * Comprehensive Metabolic Panel 05/09/22 [facility]01-19-2023 Hospital Discharge instructions Patient Education 09/06/2022 09:52:38 Colonoscopy, Care After Surgery Salam (CUSTOM) Colonoscopy Care After Surgery Please read the instructions outlined below and refer to this sheet in the next few weeks. These discharge instructions provide you with general information on caring for yourself after you leave the[facility]ital. Your doctor may also give you specific [...] what activities are safe for you. Take tzba-ohj-cteoiii and prescription medicines only as told by [...] 02/03/2013 Document Revised: 01/27/2019 Document Reviewed: 01/05/2019 [employer] Patient Education 2019 TapToLearn. Follow Up Care 06/26/2022 12:25:13 With:Zulema CRAMER Address: [address] [place] [address] [facility] (1) When: Unknown Comments:Office to call for follow-up appointment [facility]11-17-2022 Evaluation note* Encounter Date Diagnosis Assessment Notes Treatment Notes Treatment Clinical Notes Jun, Chronic obstructive pulmonary disease, unspecified (ICD-10 - J44.9) Jun, Tobacco abuse (ICD-10 - Z72.0) Cut back on smoking to goal of stopping, Jun, Diastolic dysfunction (ICD-10 - I51.9) [employer] Other 04-25-2022 Hospital Discharge instructions Patient Education [...] fried and sweet foods. General instructions Take jquj-pog-qzyepdz and prescription medicines only as told by [...] 06/01/2010 Document Revised: 11/26/2019 Document Reviewed: 08/21/2018 [employer] Patient Education 2020 [employer]ToLearn. Follow Up Care 09/04/2021 10:41:00 With:LILI WALSH, Donaldo Moreira, URL Address: [facility] [address] , [place] [phone] When:04/12/2022 [facility] 11-09-2021 NoteHNO ID: [id number] Author: Ye Rodriguez PA-C Service: ? Author Type: Physician Shop Estimator Type: Progress Notes Filed: 06/27/2021 4:56 PM Note Text: [facility] NOTE CC: Keturah Herrera is a [...] bipolar - COPD (chronic obstructive pulmonary disease) (HCC) - Depression - Ana Laura-Danlos disease - [...] Derived Hives - Atomoxetine (more content not included)...[facility]09-01-2021 NoteHNO ID: [id number] Author: RT James(R) Service: ? Author Type: Bean Picker Type: Progress Notes Filed: 04/19/2021 1:56 PM [...] BY: RT James(R) April 19, 2021 1:55 [facility]21 NoteHNO ID: [id number] Author: Randi Farrell, DO Service: ? Author [...] She will follow-up in a month if [facility]09-01-2021 NoteHNO ID: [id number] Author: RT James(R) Service: ? Author Type: Bean Picker Type: Progress Notes Filed: 04/19/2021 1:09 PM [...] SIGNED BY: RT James(R) April 19, 2021 1:09 [facility] Future Appointments Appointment Date:12/11/2021 11:45:00 AM Scheduled Provider:Donaldo PEARSON MD Location[facility] [place] Appointment Type:URO Office Visit Appointment Date:01/11/2022 02:15:00 PM Scheduled Provider:Zulema CRAMER MD Location[facility]ment Type:[facility] Follow [facility] note Future Appointments Appointment Date:01/11/2022 02:15:00 PM Scheduled Provider:Zulema CRAMER MD Location:[facility] Appointment Type:[facility] Follow Up Appointment Date:04/09/2022 01:45:00 PM Scheduled Provider:Donaldo PEARSON MD Location:[facility] Appointment Type:URO Office Visit [facility] evaluation + Plan note Future Appointments Appointment Date:02/01/2022 08:15:00 AM Scheduled Provider: Location:[facility] Appointment Type:Surgery PAT COVID Testing Appointment Date:02/01/2022 09:00:00 AM Scheduled Provider: Location:[facility] Appointment Type:Surgery FT Appointment Date:02/08/2022 09:40:00 AM Scheduled Provider: Location:[facility] Appointment Type:Surgery FT Appointment Date:04/09/2022 01:45:00 PM Scheduled Provider:Donaldo PEARSON MD Location:[facility] Appointment Type:URO Office Visit [facility] Evaluation + Plan note Future Appointments Appointment Date:02/01/2022 08:15:00 AM Scheduled Provider: Location:[facility] Appointment Type:Surgery PAT COVID Testing Appointment Date:02/01/2022 09:00:00 AM Scheduled Provider: Location:[facility] Appointment Type:Surgery FT Appointment Date:02/08/2022 09:40:00 AM Scheduled Provider: Location:[facility] Appointment Type:Surgery FT Appointment Date:03/06/2022 10:30:00 AM Scheduled Provider:Cady CALIX CNP [facility] Type:Cardiology Follow Up (FT) Appointment Date:04/09/2022 01:45:00 PM Scheduled Provider:[facility]onaldo PEASRON [facility] Future Appointments Appointment Date:02/08/2022 09:30:00 AM Scheduled Provider: Location:[facility] Appointment Type:Surgery FT Appointment Date:03/06/2022 10:30:00 AM Scheduled Provider:Cady CALIX CNP [facility] Appointment Type:Cardiology Follow Up (FT) Appointment Date:04/09/2022 01:45:00 PM Scheduled Provider:Donaldo PEARSON MD Location:[facility] Appointment Type:URO [facility] Future Appointments Appointment Date:03/06/2022 10:30:00 AM Scheduled Provider:Cady CALIX CNP [facility] App[facility] Type:Cardiology Follow Up (FT) Appointment Date:03/22/2022 08:15:00 AM Scheduled Provider: Location:[facility] Appointment Type:Surgery PAT COVID Testing Appointment Date:03/29/2022 08:40:00 AM Scheduled Provider: Location:[facility] Appointment Type:Surgery FT Appointment Date:04/09/2022 01:45:00 PM Scheduled Provider:Donaldo PEARSON MD Location:[facility] Appointment Type:URO Office Visit [facility] + Plan note Future Appointments Appointment Date:03/20/2022 01:00:00 PM Scheduled Provider: [facility] Appointment Type:Cardiology Nurse Visit (FT) Appointment Date:03/22/2022 08:15:00 AM Scheduled Provider: Location:[facility] Appointment Type:Surgery PAT COVID Testing Appointment Date:03/29/2022 08:40:00 AM Scheduled Provider: Location:[facility] Appointment Type:Surgery FT Appointment Date:04/09/2022 01:45:00 PM Scheduled Provider:Donaldo PEARSON MD Location:[facility] Appointment Type:URO Office Visit Appointment Date:09/06/2022 01:15:00 PM Scheduled Provider:Elliott Solis MD [facility] App[facility]ment Type:Cardiology Follow Up (FT) [facility] Future Appointments Appointment Date:03/22/2022 08:15:00 AM Scheduled Provider: Location:[facility] Appointment Type:Surgery PAT COVID Testing Appointment Date:03/29/2022 08:40:00 AM Scheduled Provider: Location:[facility] Appointment Type:Surgery FT Appointment Date:04/09/2022 01:45:00 PM Scheduled Provider:Donaldo PEARSON MD [facility] Type:[facility]O Office Visit Appointment Date:09/06/2022 01:15:00 PM Scheduled Provider:Elliott Solis MD [facility] Appointment Type:Cardiology Follow Up (FT) [facility] Future Appointments Appointment Date:03/29/2022 08:40:00 AM Scheduled Provider: Location:[facility] Appointment Type:Surgery FT Appointment Date:04/09/2022 01:45:00 PM Scheduled Provider:Donaldo PEARSON MD Location:[facility] Appointment Type:URO Office Visit Appointment Date:09/06/2022 01:15:00 PM Scheduled Provider:Elliott Solis MD Location[facility] Appointment Type:Cardiology Follow Up (FT) [facility] Future Appointments Appointment Date:05/09/2022 01:40:00 PM Scheduled Provider:Inessa Grajeda CNP [facility] Appointment Type:BADH Follow Up Appointment Date:05/15/2022 01:30:00 PM Scheduled Provider:Cady CALIX CNP [facility] Appointment Type:Cardiology ED Follow Up (FT) Appointment Date:05/16/2022 01:20:00 PM Scheduled Provider:SHERI JIMENES PA-C Location:[facility] Appointment Type:URO Office Visit Appointment Date:09/06/2022 01:15:00 PM Scheduled Provider:Elliott Solis MD [facility] Appointment Type:Cardiology Follow Up (FT) [facility] + Plan note Future Appointments Appointment Date:06/11/2022 11:00:00 AM Scheduled Provider: Location:[facility] Appointment Type:Surgery PAT COVID Testing Appointment Date:06/18/2022 09:45:00 AM Scheduled Provider: Location:[facility] Appointment Type:Surgery FT Appointment Date:09/06/2022 01:15:00 PM Scheduled Provider:Elliott Solis MD Location[facility] Appointment Type:Cardiology Follow Up (FT) Appointment Date:10/30/2022 03:00:00 PM Scheduled Provider:Elliott Solis MD Location[facility] Appointment Type:Cardiology Follow Up (FT) Future Scheduled Tests Laboratory* Fecal WBC Lactoferrin 05/09/22 * Giardia lamblia, Direct Detection EIA 05/09/22 * O & P Exam, Routine 05/09/22 * Clostridium difficile by PCR 05/09/22 * Enteric Panel by PCR 05/09/22 * CBC w/ Auto Diff 05/09/22 * Comprehensive Metabolic Panel 05/09/22 [facility] Future Appointments Appointment Date:09/06/2022 01:15:00 PM Scheduled Provider:Elliott Solis MD [facility] Appointment Type:Cardiology Follow Up (FT) Appointment Date:10/30/2022 03:00:00 PM Scheduled Provider:Elliott Solis MD [facility] Appointment Type:Cardiology Follow Up (FT) Appointment Date:01/30/2023 01:20:00 PM Scheduled Provider:SHERI JIMENES PA-C Location:[facility] Appointment Type:URO Office Visit Future Scheduled Tests Laboratory* Fecal WBC Lactoferrin 05/09/22 * Giardia lamblia, Direct Detection EIA 05/09/22 * O & P Exam, Routine 05/09/22 * Clostridium difficile by PCR 05/09/22 * Enteric Panel by PCR 05/09/22 * CBC w/ Auto Diff 05/09/22 * Comprehensive Metabolic Panel 05/09/22 [facility] Future Appointments Appointment Date:10/30/2022 03:00:00 PM Scheduled Provider:Elliott Solis MD [facility] Appointment Type:Cardiology Follow Up (FT) Appointment Date:01/30/2023 01:20:00 PM Scheduled Provider:SHERI JIMENES PA-C Location:[facility] Appointment Type:URO Office Visit Future Scheduled Tests Laboratory* Fecal WBC Lactoferrin 05/09/22 * Giardia lamblia, Direct Detection EIA 05/09/22 * O & P Exam, Routine 05/09/22 * Clostridium difficile by PCR 05/09/22 * Enteric Panel by PCR 05/09/22 * CBC w/ Auto Diff 05/09/22 * Comprehensive Metabolic Panel 05/09/22 [facility] Future Appointments Appointment Date:10/23/2022 09:00:00 AM Scheduled Provider: [facility] Appointment Type:US Abdominal/Pelvis (FT) Appointment Date:10/29/2022 02:40:00 PM Scheduled Provider:Inessa Grajeda CNP [facility] Appointment Type:BAD Follow Up Appointment Date:10/30/2022 03:00:00 PM Scheduled Provider:Elliott Solis MD [facility] Appointment Type:Cardiology Follow Up (FT) Appointment Date:10/31/2022 03:15:00 PM Scheduled Provider: [facility] Appointment Type:Surgery PAT COVID Testing Appointment Date:11/07/2022 02:40:00 PM Scheduled Provider: Location[facility] Appointment Type:Surgery FT Appointment Date:01/30/2023 01:20:00 PM Scheduled Provider:SHERI JIMENES PA-C Location:[facility] Appointment Type:URO Office Visit Future Scheduled Tests Laboratory* Fecal WBC Lactoferrin 05/09/22 * Giardia lamblia, Direct Detection EIA 05/09/22 * O & P Exam, Routine 05/09/22 * Clostridium difficile by PCR 05/09/22 * Enteric Panel by PCR 05/09/22 * CBC w/ Auto Diff 05/09/22 * Comprehensive Metabolic Panel 05/09/22 Radiology* US Abdomen Complete 10/23/22 [facility] + Plan note Future Appointments Appointment Date:10/30/2022 08:00:00 AM Scheduled Provider: [facility] Appointment Type:US Abdominal/Pelvis (FT) Appointment Date:10/30/2022 03:00:00 PM Scheduled Provider:Elliott Solis MD [facility] Appointment Type:Cardiology Follow Up (FT) Appointment Date:11/07/2022 02:40:00 PM Scheduled Provider: Location:[facility] Appointment Type:Surgery FT Appointment Date:12/10/2022 02:40:00 PM Scheduled Provider:Inessa Grajeda CNP [facility] Appointment Type:BAD Follow Up Appointment Date:01/30/2023 01:20:00 PM Scheduled Provider:SHERI JIMENES PA-C Location:[facility] Appointment Type:URO Office Visit Future Scheduled Tests Laboratory* Clostridium difficile by PCR 05/09/22 * CBC w/ Auto Diff 05/09/22 * Comprehensive Metabolic Panel 05/09/22 Radiology* US Abdomen Complete 10/30/22 [facility] Evaluation + Plan note Future Appointments Appointment Date:11/07/2022 02:40:00 PM Scheduled Provider: Location:[facility] Appointment Type:Surgery FT Appointment Date:11/09/2022 10:00:00 AM Scheduled Provider: Location:.[facility] Appointment Type:US Abdominal/Pelvis (FT) Appointment Date:12/10/2022 02:40:00 PM Scheduled Provider:Inessa Grajeda CNP [facility] Appointment Type:BAD Follow Up Appointment Date:01/30/2023 01:20:00 PM Scheduled Provider:SHERI JIMENES PA-C [facility] Type:[facility]O Office Visit Future Scheduled Tests Laboratory* Clostridium difficile by PCR 05/09/22 * CBC w/ Auto Diff 05/09/22 * Comprehensive Metabolic Panel 05/09/22 Radiology* US Abdomen Complete 11/09/22 [facility] Future Appointments Appointment Date:12/10/2022 02:40:00 PM Scheduled Provider:Inessa Grajeda CNP Location:[facility] Appointment Type:[facility] Follow Up Appointment Date:01/17/2023 09:50:00 AM Scheduled Provider: Location:[facility] Appointment Type:Surgery FT Appointment Date:01/30/2023 01:20:00 PM Scheduled Provider:SHERI JIMENES PA-C Location:[facility] Appointment Type:URO Office Visit Future Scheduled Tests Laboratory* Clostridium difficile by PCR 05/09/22 * CBC w/ Auto Diff 05/09/22 * Comprehensive Metabolic Panel 05/09/22 [facility] Future Appointments Appointment Date:01/30/2023 01:20:00 PM Scheduled Provider:SHERI JIMENES PA-C [facility] Type:URO Office Visit Appointment Date:02/06/2023 02:00:00 PM Scheduled Provider:Inessa Grajeda CNP Location[facility] Appointment Type:[facility] Follow Up Future Scheduled Tests Laboratory* Clostridium difficile by PCR 05/09/22 * CBC w/ Auto Diff 05/09/22 * CBC w/ Auto Diff 12/25/22 * Comprehensive Metabolic Panel 05/09/22 * Comprehensive Metabolic Panel 12/25/22 [facility] Future Appointments Appointment Date:06/14/2023 11:00:00 AM Scheduled Provider: [facility] Appoint[facility] Type:CV Holter/Event (FT) Appointment Date:07/25/2023 11:45:00 AM Scheduled Provider:Elliott SOLIS MD [facility] Appointment Type:Cardiology Follow Up (FT) Future Scheduled Tests Laboratory* Pancreatic Elastase, Fecal 01/29/23 * Fecal WBC Lactoferrin 01/29/23 * Giardia lamblia, Direct Detection EIA 01/29/23 * O & P Exam, Routine 01/29/23 * Clostridium Difficile PCR 01/29/23 * Enteric Panel by PCR 01/29/23 * CBC w/ Auto Diff 12/25/22 * Comprehensive Metabolic Panel 12/25/22 Radiology* Echo Transthoracic Complete 05/20/23 [facility] Future Appointments Appointment Date:07/25/2023 11:45:00 AM Scheduled Provider:Elliott SOLIS MD [facility] Appointment Type:Cardiology Follow Up (FT) Appointment Date:07/30/2023 02:00:00 PM Scheduled Provider:SHERI JIMENES PA-C Location:[facility] Appointment Type:URO Office Visit Future Scheduled Tests Laboratory* Pancreatic Elastase, Fecal 01/29/23 * Fecal WBC Lactoferrin 01/29/23 * Giardia lamblia, Direct Detection EIA 01/29/23 * O & P Exam, Routine 01/29/23 * Clostridium Difficile PCR 01/29/23 * Enteric Panel by PCR 01/29/23 * CBC w/ Auto Diff 12/25/22 * Comprehensive Metabolic Panel 12/25/22 Radiology* Echo Transthoracic Complete 05/20/23 [facility] Future Appointments Appointment Date:07/30/2023 02:00:00 PM Scheduled Provider:SHERI JIMENES PA-C Location:[facility] Appointment Type:URO Office Visit Future Scheduled Tests Laboratory* Pancreatic Elastase, Fecal 01/29/23 * Fecal WBC Lactoferrin 01/29/23 * Giardia lamblia, Direct Detection EIA 01/29/23 * O & P Exam, Routine 01/29/23 * Clostridium Difficile PCR 01/29/23 * Enteric Panel by PCR 01/29/23 * CBC w/ Auto Diff 12/25/22 * Comprehensive Metabolic Panel 12/25/22 Radiology* Echo Transthoracic Complete 05/20/23 [facility] Future Appointments Appointment Date:12/31/2023 01:00:00 PM Scheduled Provider:SHERI JIMENES PA-C Location:[facility] Appointment Type:URO Office Visit Future Scheduled Tests Laboratory* Pancreatic Elastase, Fecal 01/29/23 * Fecal WBC Lactoferrin 01/29/23 * Giardia lamblia, Direct Detection EIA 01/29/23 * O & P Exam, Routine 01/29/23 * Clostridium Difficile PCR 01/29/23 * Enteric Panel by PCR 01/29/23 * CBC w/ Auto Diff 12/25/22 * Comprehensive Metabolic Panel 12/25/22 Radiology* Echo Transthoracic Complete 05/20/23 [facility] evaluation noteNo assessment information [facility] Work Phone: Evaluation noteNo [employer] Other Evaluation note* Diagnosis Oral thrush Candidiasis of mouth [facility] Diagnosis Chronic bilateral low back pain with sciatica, sciatica laterality unspecified [facility]* Diagnosis Anxiety state Anxiety state, unspecified [facility] Diagnosis Chronic bilateral low back pain with bilateral sciatica Diabetic peripheral neuropathy (CMS/HCC) Type II or unspecified type diabetes mellitus with neurological manifestations, not stated as uncontrolled Lumbar radiculopathy Thoracic or lumbosacral neuritis or radiculitis, unspecified documented [facility] this encounter [facility] Narrative - Reported* Type Description Date [...] release x2 1998 Surgical History Sinus surgery 1989 Surgical History Carpal tunnel surgery 1991 Surgical History Tarsal tunnel surgery 2011 Surgical History Mortons Neuromas 2011 Surgical History Milk ducts removed from breasts 2010 Surgical History Lithotripsy 1995 Surgical History Ingrown toenail x [address]/MRI Surgical History broken right foot toe Surgical History rt knee surgery arthroscopy Hospitalization History Hypokalemia, nausea, vom iting Hospitalization History see above surgical [employer] Other History general Narrative - Reported* Type Description Date [...] release x2 1998 Surgical History Sinus surgery 1989 Surgical History Carpal tunnel surgery 1991 Surgical History Tarsal tunnel surgery 2012 Surgical History Mortons Neuromas 2011 Surgical History Milk ducts removed from breasts 2010 Surgical History Lithotripsy 1995 Surgical History Ingrown toenail x [address]/MRI Surgical History broken right foot toe Surgical History rt knee surgery arthroscopy Surgical History Esophageal dilatation Hospitalization History Hypokalemia, nausea, vom iting Hospitalization History see above surgical [employer] Other Hospital course Narrative No data available for this section [facility] No data available for this section [facility]ructionsNot on filedocumented in this encounter [facility] filedocumented in this encounter [facility]ructionsNot on filedocumented in this encounter [facility]ructionsNot on filedocumented in this encounter [facility] No data available for this section [facility] Summary Purpose Family History No Family History [...] section and content) DATE CREATED AUTHOR 10/09/2021 [facility] DATE CREATED AUTHOR AUTHOR'S ORGANIZ ATION 02/22/2022 [facility] DATE CREATED AUTHOR AUTHOR'S ORGANIZ ATION 01/28/2023 [facility] DATE CREATED AUTHOR AUTHOR'S ORGANIZ ATION 04/11/2023 [facility] DATE CREATED AUTHOR AUTHOR'S ORGANIZ ATION 06/26/2023 [facility] DATE CREATED AUTHOR AUTHOR'S ORGANIZ ATION 08/29/2023 [facility] EPIC DATE CREATED AUTHOR AUTHOR'S ORGANIZ ATION 09/19/2023 [facility] DATE CREATED AUTHOR AUTHOR'S ORGANIZ ATION 09/22/2023 [facility] Care Team (unrecognized sect ion and content) Team Status: Active Member Role Status Dates Robert Giron DO Primary Care Provider Active Team Status: Inactive Member Role Status Dates Robert Giron DO Primary Care Provider Active Valarie Herrera APRN [facility] Attending Provider Active Md Do Resident Urgent Care Relationship Specialty Start Date End Date Robert Giron DO [address] [place] [address] PCP - General Family Medicine 05/10/22 Md Do Resident Urgent Care Relationship Specialty Start Date End Date Robert Giron DO [address] [place] [address] PCP - General Family Medicine 05/10/22 Md Do Resident Urgent Care Relationship Specialty Start Date End Date Robert Giron DO [address], [place] [address] PCP - General Family Medicine 05/10/22 Md Do Resident Urgent Care Relationship Specialty Start Date End Date Robert Giron DO [address] [place] [address] PCP - General Family Medicine 05/10/22 Md Do Resident Urgent Care Relationship Specialty Start Date End Date Robert Giron MD [address], [place] [address] PCP - General Family Medicine 07/24/23 Goals (unrecognized section and content) Goals may be documented in a n alternate section REASON FOR VISIT (unrecogniz ed section and content) Reason Comments Med Refill Reason Onset Date Comments Med Refill 09/08/2023 Reason Onset Date Comments Med Refill 09/20/2023 FOR RECORDS PERTAINING TO PATIENTS WHO ARE [...] BE BASED ON THE PRIMARY CLINICAL RECORDS. [employer] provides no warranty or guarantee of the accuracy or completeness of information in this document.
== END 2023-09-27 13:22 | disposition home or self-care (01) ==
LOC: MAMMO 13:21
PROVIDERS: PCP Family Medicine; Visit Provider Obstetrics & Gynecology
DX: Z12.31 Encounter for screening mammogram for malignant neoplasm of breast (principal); Z80.41 Family history of malignant neoplasm of ovary
CPT/HCPCS: 77063; 77067

== ENCOUNTER 2023-11-05 13:41 | Emergency (ER) | payer OTHER, SELFPAY ==
[2023-11-05 13:47] VITALS: BP 141/84; PULSE 91; RESP 16; TEMP 36.4; O2SAT 99; BMI 29.2
--- NOTE | 2023-11-05 13:53 | XR_ITS ---
[address] [address] Patient Name: ROCK HERRERA MRN: [id number] date: 1970 Sex: F Assigned Patient Location: ER Current Patient Location: ED.MAIN Accession/Order Number: [id number] Exam Date: 11/05/2023 14:10 Report Date: 11/05/2023 14:33 At the request of: NABEEL BURCH Procedure: XR knee LT 4V PROCEDURE: XR knee LT 4V COMPARISON: None. HISTORY: Left knee pain FINDINGS: BONES:No acute fracture or dislocation. Mild narrowing of medial joint space. Mild marginal osteophyte formation medial anterior compartment. SOFT TISSUES:Negative. No visible soft tissue swelling. EFFUSION:None visible. OTHER: Negative. XR/XR knee LT 4V IMPRESSION: No acute radiographic abnormality Electronically authenticated by: MMAIE HERNANDEZ Date: 11/05/2023 14:33
--- NOTE | 2023-11-05 14:00 | ED.EXTPRO1 ---
HPI - Extremity Problem General Chief complaint: Extremity Problem, Nontraumatic Stated complaint: LT LEG PAIN Time Seen by Provider: 11/05/23 13:46 Source: patient Mode of arrival: Wheelchair Limitations: no limitations History of Present Illness HPI Narrative: Patient is a 53-year-old female who presents to the emergency department for pain in the left medial and posterior knee. She has been using a knee scooter to help her ambulate after she had surgery on her right foot 1 month ago. She states she hit the medial aspect of her left knee on the knee scooter and feels as though she may have pulled or torn something in the back of her left knee. She states this occurred 2 days ago. She states she ran out of her 10 mg Percocet 2 days ago. She was prescribed these by her managing principal. OARRS report shows the patient is on these regularly for the last month in small quantities per prescription. No falls or injuries, no issues with the right foot surgery. Related Data Home Medications ?Medication ?Instructions ?Recorded ?Confirmed alendronate 70 mg tablet 70 mg PO QWEEK 11/05/23 11/05/23 alprazolam 1 mg tablet 1 mg PO TID PRN anxiety 11/05/23 11/05/23 aripiprazole 15 mg tablet 15 mg PO DAILY 11/05/23 11/05/23 atorvastatin 80 mg tablet 80 mg PO DAILY 11/05/23 11/05/23 calcium carbonate 600 mg calcium 600 mg PO BID 11/05/23 11/05/23 (1,500 mg) tablet carvedilol 25 mg tablet 25 mg PO BID 11/05/23 11/05/23 cetirizine 10 mg tablet 10 mg PO DAILY 11/05/23 11/05/23 cyclobenzaprine 10 mg tablet 10 mg PO Q8H PRN spasms 11/05/23 11/05/23 Previous Rx's ?Medication ?Instructions ?Recorded acetaminophen 300 mg-codeine 30 mg 1 tab PO Q6H PRN pain #14 tabs 03/21/23 tablet hydrocodone 5 mg-acetaminophen 325 1 tab PO Q6H PRN pain #14 tabs 03/21/23 mg tablet ibuprofen 800 mg tablet 800 mg PO Q8H PRN pain #20 tabs 03/21/23 prednisone 10 mg tablet See Rx Instructions .Route 08/12/23 .COMPLEX #18 tabs Allergies Allergy/AdvReac Type Severity Reaction Status Date / Time adhesive tape Allergy Verified 07/09/23 19:38 amitriptyline Allergy Verified 07/09/23 19:38 amoxicillin Allergy Verified 07/09/23 19:38 atomoxetine [From Strattera] Allergy Verified 07/09/23 19:38 bupropion [From Wellbutrin] Allergy Verified 07/09/23 19:38 codeine Allergy Verified 07/09/23 19:38 dexamethasone Allergy Verified 07/09/23 19:38 divalproex sodium Allergy Verified 07/09/23 19:38 [From Depakote] duloxetine [From Cymbalta] Allergy Verified 07/09/23 19:38 fluticasone Allergy Verified 07/09/23 19:38 [From Advair Diskus] gabapentin Allergy Verified 07/09/23 19:38 ibuprofen Allergy Verified 07/09/23 19:38 ketorolac [From Toradol] Allergy Verified 07/09/23 19:38 meloxicam [From Mobic] Allergy Verified 07/09/23 19:38 methadone Allergy Verified 07/09/23 19:38 milnacipran [From Savella] Allergy Verified 07/09/23 19:38 nitrofurantoin Allergy Verified 07/09/23 19:38 [From Macrobid] paroxetine [From Paxil] Allergy Verified 07/09/23 19:38 Penicillins Allergy Verified 07/09/23 19:38 pregabalin [From Lyrica] Allergy Verified 07/09/23 19:38 ropinirole [From Requip] Allergy Verified 07/09/23 19:38 salmeterol Allergy Verified 07/09/23 19:38 [From Advair Diskus] topiramate [From Topamax] Allergy Verified 07/09/23 19:38 ziprasidone Allergy Verified 07/09/23 19:38 fish Allergy Uncoded 07/09/23 19:38 Review of Systems ROS Constitutional Denies: fever or chills Ears, nose, mouth, and throat Denies: throat pain Cardiovascular Denies: chest pain Respiratory Denies: shortness of breath or cough Gastrointestinal Denies: nausea or vomiting Musculoskeletal Reports: extremity pain, extremity swelling and joint pain; Denies: back pain or neck pain Integumentary/Breast Denies: rash Neurological Denies: headache Hematologic/Lymphatic Denies: easy bruising or easy bleeding PFSH PFSH Social History Smoking status: Never smoker Exam Narrative Exam Narrative: Gen.: Awake, alert, in no distress Head: Normocephalic, atraumatic ENT: Moist mucous membranes Respiratory: No respiratory distress Extremities: Moves extremities equally, Diffuse tenderness of the medial and posterior left knee with minimal joint effusion noted medially. No laxity of the patella. No ecchymosis or obvious deformity Psych: Normal mood and affect Neuro: No focal neuro deficit Skin: Warm, dry, intact Constitutional Vital Signs, click to edit/add: Last Vital Signs Temp 97.6 F 11/05/23 13:47 Pulse 91 H 11/05/23 13:47 Resp 16 11/05/23 13:47 BP 141/84 11/05/23 13:47 Pulse Ox 99 11/05/23 13:47 O2 Del Method Room Air 11/05/23 13:47 Course Vital Signs Vital signs: Vital Signs Temperature 97.6 F 11/05/23 13:47 Pulse Rate 91 H 11/05/23 13:47 Respiratory Rate 16 11/05/23 13:47 Blood Pressure 141/84 11/05/23 13:47 Pulse Oximetry 99 11/05/23 13:47 Oxygen Delivery Method Room Air 11/05/23 13:47 Temperature 97.6 F 11/05/23 13:47 Pulse Rate 91 H 11/05/23 13:47 Respiratory Rate 16 11/05/23 13:47 Blood Pressure 141/84 11/05/23 13:47 Pulse Oximetry 99 11/05/23 13:47 Oxygen Delivery Method Room Air 11/05/23 13:47 MDM - Extremity (Nontraumatic) MDM Narrative Medical decision making narrative: OARRS reviewed showing the patient ran out of her 10 mg Percocet prescription on 11/02/2023. She states that she took her last pill 2 days ago which coincides with the day that her pain began. Patient has a longstanding history of chronic pain and visits to this ER for pain medication. At this time she has no physical exam findings consistent with significant injury. She has unremarkable x-rays. She was placed in an Rich wrap and remains neurovascularly intact. Follow-up with orthopedics. 1 Percocet pill was given in the ER. Return to the ER if symptoms change or worsen. Patient is unable to be placed on anti-inflammatories due to her multiple allergies And she is frequently placed on steroids, no indication for further medication at this time. Medical Records Attestation: I reviewed the patient's medical records. Imaging Data XR knee: Attestation: I have reviewed the pertinent imaging results. Radiologist's impression: ITS Impressions Knee X-Ray 11/05/23 13:53 IMPRESSION: No acute radiographic abnormality Electronically authenticated by: MAMIE HERNANDEZ Date: 11/05/2023 14:33 Discharge Plan Discharge Stand Alone Forms: Portal Instructions Chief Complaint: Extremity Problem, Nontraumatic Clinical Impression: Arthralgia of knee, left Patient Disposition: Home, Self-Care Time of Disposition Decision: 14:43 Condition: Good Prescriptions / Home Meds: No Action ibuprofen 800 mg tablet 800 mg PO Q8H PRN (Reason: pain) Qty: 20 0RF acetaminophen-codeine 300-30 mg tablet 1 tab PO Q6H PRN (Reason: pain) Qty: 14 0RF hydrocodone-acetaminophen 5-325 mg tablet 1 tab PO Q6H PRN (Reason: pain) Qty: 14 0RF prednisone 10 mg tablet See Rx Instructions .ROUTE .COMPLEX Qty: 18 0RF Rx Instructions: 3 by mouth daily for three days then 2 by mouth daily for three days then 1 by mouth daily for three days alendronate 70 mg tablet 70 mg PO QWEEK alprazolam 1 mg tablet 1 mg PO TID PRN (Reason: anxiety) aripiprazole 15 mg tablet 15 mg PO DAILY atorvastatin 80 mg tablet 80 mg PO DAILY calcium carbonate 600 mg calcium (1,500 mg) tablet 600 mg PO BID carvedilol 25 mg tablet 25 mg PO BID cetirizine 10 mg tablet 10 mg PO DAILY cyclobenzaprine 10 mg tablet 10 mg PO Q8H PRN (Reason: spasms) Print Language: [place] Instructions: Knee Pain (ED), Arthralgia (ED) Additional Instructions: Follow up with your orthopedist for continued pain in the left knee. You will need to see your doctor, Dr. House, or pain management for refills of your Percocet Referrals: IVON GIRON [Primary Care Provider] - 1 week
[2023-11-05] MEDS: OXYCODONE HCL/ACETAMINOPHEN 5MG/325MG 1 TAB PO (14:32)
== END 2023-11-05 14:55 | disposition home or self-care (01) ==
PROVIDERS: Emergency Provider Emergency Medicine; PCP Family Medicine
DX: M25.562 Pain in left knee (principal); Z79.899 Other long term (current) drug therapy
CPT/HCPCS: 73564; 99283

== ENCOUNTER 2023-12-01 20:25 | Emergency (ER) | payer OTHER, SELFPAY ==
[2023-12-01 20:28] VITALS: BP 139/82; PULSE 90; TEMP 36.6; O2SAT 96; BMI 27.5
--- OUTSIDE RECORDS SUMMARY | 2023-12-01 20:33 | XMS_ITS | CCD ---
Author Organization [facility] Care Team Providers Care Leather Crafter Name Role Phone ROBERT GIRON Primary Care Physician [phone] Valarie Herrera Unavailable VALARIE HERRERA Attending Unavailable FURLOLAURIE, DR ROBERT Santiago Primary Care Unavailable JAVIER, VALARIE Admitting Unavailable NEFCYNICOLE Consulting Unavailable JAVIER VALARIE Consulting Unavailable CAROLA ., JAMAR Attending Unavailable FURLOLAURIE, DR ROBERT Santiago Primary Care Unavailable CAROLA ., JAMAR Admitting Unavailable CAROLA ., JAMAR Consulting Unavailable MISC, DR MALIN Attending Unavailable MISC, DR MALIN Admitting Unavailable FURLOLAURIE, DR ROBERT Santiago Primary Care Unavailable CAROLA ., JAMAR Admitting Unavailable FURLOLAURIE, DR ROBERT Santiago Primary Care Unavailable CAROLA ., JAMAR Consulting Unavailable CAROLA .JAMAR Attending Unavailable PAY ., DR CABEZAS Attending Unavailable FURLOLAURIE, DR ROBERT Santiago Primary Care Unavailable GRECHNY .SHARYN Consulting Unavailabl e PAY ., DR CABEZAS Admitting Unavailable NEFNICOLE DENG Consulting Unavailable JAJA, ELIUD Attending Unavailable FURLONG, DR ROBERT Santiago Primary Care Unavailable JAJA, ELIUD Admitting Unavailable MISC, DR MALIN Admitting Unavailable MISC, DR MALIN Attending Unavailable FURLOLAURIE, DR ROBERT Santiago Primary Care Unavailable MISC, DR MALIN Admitting Unavailable FURLONG, DR ROBERT Santiago Primary Care Unavailable MISC, DR MALIN Attending Unavailable NICKO ., DR MACK Consulting Unavailable NICKO ., DR MACK Attending Unavailable NICKO ., DR MACK Admitting Unavailable FURLONG, DR ROBERT Santiago Primary Care Unavailable ZIEBER, DR DELORES Moreira Consulting Unavailable JAJA, ELIUD Admitting Unavailable JAJA, [...] REINECK, DR ABDELRAHMAN Santiago Admitting Unavailabl e LOYDATEKAUSHIK LILIANA Consulting Unavailable FURLONG, DR ROBERT Santiago Primary Care Unavailable GRECHNY ., SHARYN LEES Consulting UnavailTUTU Mclean Attending Unavailable TUTU HANSON Admitting Unavailable DO Robert Giron Primary Care Provider WILMA Herrera Attending Provider Valarie Herrera Attending Unavailable Valarie Herrera Admitting Unavailable Robert Giron Primary Care Unavailable NURAI SANCHEZ Referring Unavailable DRAGAN SEN Primary Care Unavailable Furlong Robert BYRNES Primary Care Provider Robert Giron MD Primary Care Provider ROBERT GIRON Referring Unavailable ROBERT GIRON Primary Care Unavailable ROBERT GIRON Attending Unavailable ROBERT GIRON Referring Unavailable ROBERT GIRON Primary Care Unavailable ANDRIA CARTER Attending Unavailable ROBERT GIRON Referring Unavailable NURIA SANCHEZ Attending Unavailable MARTIN ARANGO Attending Unavailable MARTIN ARANGO Attending Unavailable ROSHAN HOLLOWAY Attending Unavailable ROBERT GIRON Referring Unavailable BROWN, MARTIN Jerome Attending Unavailable BROWN, MARTIN A Referring Unavailable BROWN, MARTIN A Attending Unavailable BROWN, MARTIN A Attending Unavailable SANCHEZNURIA Attending Unavailable BROWN, MARTIN A Attending Unavailable BROWN, MARTIN A Referring Unavailable TATTERSALL, ИВАН Attending Unavailable FURLONG, ROBERT G Referring Unavailable RITCHIE KIRBY Attending Unavailab le TATTERSALL, ИВАН Attending Unavailable FURLONG, ROBERT Santiago Referring Unavailable TATTERSALL, ИВАН Attending Unavailable FURLONG, ROBERT G Referring Unavailable BROWN, MARTIN Jerome Attending Unavailable FRENCH LEVINE Attending Unavailable FURLONG, ROBERT G Referring Unavailable STANG, Cady L Admitting Unavailable STANG, Cady L Attending Unavailable STANG, Cady L Referring Unavailable SanchezNuria Referring Unavailable AlvaMYRNA Cady Admitting Unavailabl e Alva, Cady Attending Unavailable Elliott SOLIS Attending Unavailable NONE, XXXX Referring Unavailable Elliott SOLIS Admitting Unavailable STANG, Cady L Attending Unavailable NONE, XXXX Referring Unavailable Inessa Grajeda Attending Unavailable Nicci, Inessa Jerome Attending Unavailable YUDYSHERI Attending Unavailable YUDY, SHERI Kaminski Attending Unavailable YUDY, SHERI E Attending Unavailable STANG, Cady L Admitting Unavailable STANG, Cady L Attending Unavailable NONE, XXXX Referring Unavailable NONE, XXXX Referring Unavailable Elliott SOLIS Admitting Unavailable SOLISElliott Attending Unavailable SALAM, Zulema Admitting Unavailable SALAM, Zulema Attending Unavailable SALAM, Zulema Referring Unavailable Allergies Allergy Classification Reported Allergen(s) Allergy Type Date of Onset Reaction(s) Facility (20 sources) Acetaminophen / HYDROcodone; Translations: [acetaminophen-hydr ocodone] Drug Allergy Unknown (qualifier value), [facility] (20 sources) Adhesive Tape; Translations: [Tape] Drug allergy Eruption of skin (disorder), [facility] (20 sources) Amitriptyline; Translations: [amitriptyline] Drug Allergy 013 Vomiting (disorder), Abnormal Behavior [facility] (20 sources) Amoxicillin; Translations: [amoxicillin] Drug Allergy 017 Vomiting [facility] (20 sources) Amoxicillin / Clavulanate; Translations: [amoxicillin-clavul anate] Drug Allergy Vomiting (disorder), GI Disturbance [facility] (20 sources) atomoxetine; Translations: [atomoxetine] Drug Allergy Palpitations, Other (See Comments) [facility] Comment on above: (atomoxetine) (20 sources) buPROPion; Translations: [bupropion] Drug Allergy Palpitations [facility] (20 sources) Codeine; Translations: [codeine] Drug Allergy Eruption of skin (disorder), Hives, Rash [facility] (20 sources) Dexamethasone; Translations: [dexamethasone] Drug Allergy Menopausal flushing (finding) [facility] Comment on above: (dexamethasone) (20 sources) Doxycycline; Translations: [doxycycline] Drug Allergy GI Disturbance, Palpitations [facility] (20 sources) DULoxetine; Translations: [duloxetine] Drug Allergy 019 Unknown (qualifier value), hives [facility] (20 sources) fluticasone; Translations: [fluticasone] Drug Allergy 014 Unknown (qualifier value) [facility] (20 sources) fluticasone / salmeterol; Translations: [fluticasone-salmet su] Drug Allergy Eruption of skin (disorder), rash, Itching, Palpitations [facility] (20 sources) gabapentin; Translations: [gabapentin] Drug Allergy 019 Unknown (qualifier value) [facility] (20 sources) Ibuprofen; Translations: [ibuprofen] Drug Allergy 012 Eruption of skin (disorder), rash, GI Disturbance, Nausea And Vomiting [facility] (20 sources) Ketorolac; Translations: [ketorolac] Drug Allergy 017 Unknown (qualifier value) [facility] (20 sources) meloxicam; Translations: [meloxicam] Drug Allergy Unknown (qualifier value) [facility] (20 sources) Methadone; Translations: [methadone] Drug Allergy 011 Vomiting (disorder), GI Disturbance, Nausea And Vomiting [facility] (20 sources) milnacipran; Translations: [milnacipran] Drug Allergy Unknown (qualifier value), Other (See Comments) [facility] (20 sources) moxifloxacin; Translations: [moxifloxacin] Drug Allergy Eruption of skin (disorder), rash, Nausea Only [facility] (20 sources) NITROFURANTOIN, MACROCRYSTALS / Nitrofurantoin, Monohydrate; Translations: [nitrofurantoin] Drug Allergy Other (See Comments) [facility] (20 sources) OXcarbazepine; Translations: [oxcarbazepine] Drug Allergy Unknown (qualifier value), GI Disturbance, Palpitations [facility] (20 sources) PARoxetine; Translations: [paroxetine] Drug Allergy 023 Unknown (qualifier value), Hives [facility] (20 sources) Penicillins; Translations: [penicillins] Drug allergy Unknown (qualifier value), GI Disturbance, Hives, Other (See Comments), Vomiting [facility] (20 sources) pregabalin; Translations: [pregabalin] Drug Allergy Unknown (qualifier value), Other (See Comments), Palpitations [facility] (20 sources) rOPINIRole; Translations: [ropinirole] Drug Allergy 019 Altered mental status [facility] (20 sources) Shellfish; Translations: [shellfish] Drug allergy Eruption of skin (disorder), rash [facility] (20 sources) Sulfamethoxazole / Trimethoprim; Translations: [sulfamethoxazole-t rimethoprim] Drug Allergy 019 Vomiting (disorder) [facility] (20 sources) topiramate; Translations: [topiramate] Drug Allergy Vomiting (disorder), GI Disturbance, Other (See Comments) [facility] (20 sources) Valproate; Translations: [divalproex sodium] Drug Allergy Alopecia (disorder) [facility] (20 sources) Verapamil; Translations: [verapamil] Drug Allergy 015 Vomiting (disorder), GI Disturbance, GI intolerance [facility] (20 sources) ziprasidone; Translations: [ziprasidone] Drug Allergy 014 Unknown (qualifier value), Palpitations, Other (See Comments) [facility] (5 sources) Adhesive Tape; Translations: [Adhesive tape] Allergy to substance 013 contact dermatitis [facility] (15 sources) Fish Containing Products; Translations: [Fish Containing Products] Allergy to substance 012 Rash [facility] (6 sources) Codeine Drug Allergy rash [facility] Other (6 sources) torodol Propensity to adverse reactions severe abdominal pain [facility] Other (20 sources) Methocarbamol; Translations: [methocarbamol] Drug Allergy 023 Unknown (qualifier value), Other (See Comments) [facility] (2 sources) Acetaminophen / HYDROcodone Drug Allergy [facility] (2 sources) Amitriptyline Drug Allergy [facility] (2 sources) Amoxicillin / Clavulanate Drug Allergy [facility] (3 sources) atomoxetine; Translations: [Strattera] Drug Allergy [facility] (1 source) atorvastatin Drug Allergy [facility] (2 sources) buPROPion Drug Allergy [address] [facility] (2 sources) carBAMazepine Drug Allergy [facility] (1 source) Clindamycin Drug Allergy [address] [facility] (2 sources) Codeine Drug Allergy [address] [facility] (3 sources) Dexamethasone; Translations: [Decadron] Drug Allergy [facility] (2 sources) Diclofenac Drug Allergy [address] [facility] (2 sources) Doxycycline Drug Allergy [facility] (2 sources) DULoxetine Drug Allergy [facility] (14 sources) Fish derivative; Translations: [FISH DERIVED] Drug allergy (disorder) Hives [facility] (2 sources) Fluorometholone Drug Allergy [facility] (2 sources) fluticasone / salmeterol Drug Allergy [facility] (2 sources) gabapentin Drug Allergy [facility] (2 sources) hydrOXYzine Drug Allergy [facility] (2 sources) Ibuprofen Drug Allergy [facility] (2 sources) Ibuprofen Drug Allergy [facility] (1 source) Ketorolac Drug Allergy [facility] (2 sources) Ketorolac Drug Allergy [facility] (2 sources) meloxicam Drug Allergy [facility] (2 sources) Methadone Drug Allergy [facility] (2 sources) Methocarbamol Drug Allergy [address] [facility] (2 sources) milnacipran Drug Allergy [facility] (2 sources) moxifloxacin Drug Allergy [facility] (2 sources) Nitrofurantoin Drug Allergy [facility] (2 sources) OXcarbazepine Drug Allergy [facility] (2 sources) PARoxetine Drug Allergy [facility] (3 sources) pregabalin; Translations: [Lyrica] Drug Allergy [facility] (2 sources) rOPINIRole Drug Allergy [facility] (1 source) Sulfonamides (Antibiotic) Drug allergy (disorder) [facility] (2 sources) topiramate Drug Allergy [facility] (2 sources) Valproate Drug Allergy [facility] (1 source) Verapamil Drug Allergy [facility] (3 sources) ziprasidone; Translations: [Geodon] Drug Allergy [facility] (14 sources) Adhesive agent; Translations: [ADHESIVE] Propensity to adverse reactions to drug [facility] Work Phone: (16 sources) atomoxetine; Translations: [ATOMOXETINE HCL] Drug Allergy GI Disturbance, Palpitations [facility] (12 sources) buPROPion; Translations: [BUPROPION HCL] Drug Allergy GI Disturbance, Palpitations [facility] (16 sources) DULoxetine; Translations: [DULOXETINE HCL] Drug Allergy [facility] (16 sources) Eicosapentaenoate; Translations: [EICOSAPENTAENOIC ACID] Drug Allergy [facility] (12 sources) Ketorolac; Translations: [KETOROLAC TROMETHAMINE] Drug Allergy Other (See Comments) [facility] (12 sources) moxifloxacin; Translations: [MOXIFLOXACIN-SOD.C HLORIDE(ISO)] Drug Allergy Nausea [facility] (12 sources) PARoxetine; Translations: [PAROXETINE HCL] Drug Allergy [facility] (14 sources) Shellfish; Translations: [SHELLFISH CONTAINING PRODUCTS] Propensity to adverse reactions to drug [facility] (12 sources) Shellfish; Translations: [SHELLFISH DERIVED] Propensity to adverse reactions to drug [facility] (12 sources) Sulfamethoxazole; Translations: [SULFAMETHOXAZOLE] Drug Allergy Other (See Comments) [facility] (12 sources) Valproate; Translations: [DIVALPROEX] Drug Allergy [facility] (12 sources) Valproate; Translations: [VALPROIC ACID] Drug Allergy [facility] (12 sources) Verapamil; Translations: [VERAPAMIL HCL] Drug Allergy [facility] (16 sources) ziprasidone; Translations: [ZIPRASIDONE HCL] Drug Allergy Palpitations, Hives [facility] (12 sources) Adhesive Tape-Silicones; Translations: [ADHESIVE TAPE-SILICONES] Propensity to adverse reactions to drug Other (See Comments), Rash [facility] (4 sources) atomoxetine Drug Allergy Palpitations [facility] (4 sources) Ketorolac Propensity to adverse reactions 015 [facility] (4 sources) Ketorolac trometamol Allergy to substance 011 Hives [facility] (4 sources) meloxicam Drug Allergy [facility] (4 sources) Methocarbamol Drug Allergy 023 [facility] (4 sources) milnacipran Drug Allergy Hives [facility] (4 sources) Nitrofurantoin Drug Allergy Hives, Rash [facility] (4 sources) Oxcarbazepine Allergy to substance 011 GI intolerance, Hives, Palpitations [facility] (4 sources) Pregabalin Allergy to substance 013 Palpitations [facility] (4 sources) Shellfish Allergy to substance 023 Rash [facility] (4 sources) Sulfamethoxazole Propensity to adverse reactions [facility] (4 sources) Topiramate Allergy to substance 023 GI intolerance [facility] (4 sources) Valproate Drug Allergy [facility] (4 sources) ziprasidone Drug Allergy 011 Palpitations [facility] (6 sources) Amoxicillin-Pot Clavulanate; Translations: [AMOXICILLIN-POT CLAVULANATE] Drug Intolerance 011 Nausea And Vomiting [facility] (4 sources) Aloe-Sodium Chloride Propensity to adverse reactions 024 [facility] (4 sources) Fish-Derived Products Drug Intolerance [facility] (4 sources) Moxifloxacin Hcl In Nacl Drug Intolerance [facility] (4 sources) Other Propensity to adverse reactions Hives [facility] (4 sources) Wound Dressing Adhesive Drug Allergy Rash [facility] (2 sources) Dexamethasone; Translations: [DEXAMETHASONE (PF)] Drug Allergy [facility] (2 sources) Sulfamethoxazole / Trimethoprim; Translations: [SULFAMETHOXAZOLE-T RIMETHOPRIM] Drug Allergy [facility] (2 sources) NITROFURANTOIN MONOHYD/M-CRYST; Translations: [NITROFURANTOIN MONOHYD/M-CRYST] Propensity to adverse reactions to drug (disorder) [facility] (2 sources) FLUTICASONE PROPION-SALMETEROL; Translations: [FLUTICASONE PROPION-SALMETEROL] Propensity to adverse reactions to drug (disorder) [facility] (6 sources) SODIUM CHLORIDE-ALOE VERA; Translations: [SODIUM CHLORIDE-ALOE VERA] Propensity to adverse reactions to drug (disorder) 024 [facility] (1 source) Fish - dietary; Translations: [Fish] Food allergy (disorder) [facility] Medications Current Medications Medication Drug Class(es) Dates Sig (Normalized) Sig (Original) acetaminophen 325 mg / oxyCODONE hydrochloride 10 mg oral tablet (14 sources) Opioid Agonist Start: 09-26-2023 End: 10-01-2023 take 1 tablet by mouth every six hours for pain oxyCODONE-acetami nophen (Percocet) 10-325 MG tablet Indications: Hav (hallux abducto valgus), right Take 1 tablet by mouth every 6 (six) hours if needed for severe pain for up to 5 days 15 tablet 0 09/26/2023 10/01/2023 Active Start: 11-07-2021 Percocet 325 m g-5 mg Tab 1 tab(s), Oral, Refill(s) 0, Pain Start Date: 11/07/21 Status: Ordered Ajovy Autoinjector 225 mg/1.5 mL subcutaneous solution (3 sources) Start: 10-25-2021 inject 225 mg by subcutaneous injection every month Ajovy Autoinjector 225 mg/1.5 mL subcutaneous solution 225 mg, SubCutaneous, qMonth, Refills(s) 0, Blood glucose Start Date: 10/25/21 Status: Ordered [id number] 200 actuat albuterol 0.09 mg/actuat metered dose inhaler (20 sources) beta2-Adrener gic Agonist Start: 06-14-2021 take 1 puff(s) by inhalation every four to six hours Albuterol Sulfate Active 2 PUFF INHALATION EVERY 4-6 HOURS June 14, 2021 12:00am take 2 puff(s) by in halation every six hours as needed for wheezing albuterol (PROVENTIL HFA;VENTOLIN HFA) 9 0 mcg/actuation inhaler Inhale 2 puffs every 6 (six) hours as needed for wheezing. 0 Active albuterol (2.5 M G/3ML) 0.083% nebulizer solution [...] / ipratropium bromide 0.167 mg/ml inhalation solution (10 sources) Anticholinergic, beta2-Adrenergic Agonist ipratropium-albutero L (DUONEB) 0.5 mg-3 mg(2.5 mg base)/3 mL nebulizer alendronic acid 70 mg oral tablet (15 sources) Bisphosphonate Start: 2022 take 1 tablet by mouth every week alendronate (FOSAMAX) 70 mg tablet TAKE ONE TABLET BY MOUTH ONCE WEEKLY 30 MINUTES BEFORE THE FIRST FOOD, BEVERAGE, OR MEDICINE OF THE DAY WITH PLAIN WATER 0 10/08/2022 Active ALPRAZolam 1 mg oral tablet (20 sources) Benzodiazepine Start: 2023 take 1 tablet by mouth three times daily as needed for anxiety ALPRAZolam (XANAX) 1 mg tablet Indications: Anxiety state TAKE ONE TABLET BY MOUTH THREE TIMES A DAY NEEDED FOR ANXIETY 90 tablet 0 11/01/2023 Active Start: 06-05-2023 End: 10-30-2023 take 1 tablet by mouth three times daily as needed for anxiety ALPRAZolam (XANAX) 1 mg tablet Indications: Anxiety state TAKE ONE TABLET BY MOUTH THREE TIMES A DAY NEEDED FOR ANXIETY 90 tablet 1 09/02/2023 10/30/2023 Discontinued (Reorder) Start: 07-10-2021 take 0.25 mg by mout [...] tablet (20 sources) Atypical Antipsychotic Start: 11-16-2022 End: 09-26-2023 take 1 tablet by mouth once daily ARIPiprazole (ABILIFY) 15 mg tablet TAKE ONE TABLET BY MOUTH ONCE DAILY 30 tablet 5 09/26/2023 Active Start: 04-09-2022 ARIPiprazole ( Abilify) 20 MG [...] Start: 04-28-2018 take 2 tablets by mo [facility] at bedtime Lipitor 40 mg Tab 80 [...] day(s), # 6 tab(s), Refills(s) 0, Pharmacy: [id number], 163, cm, 10/20/22 10:48:00 EST, Height/Length Dosing, 78.9, kg, 10/20/22 10:48:00 EST, Weight Dosing Start Date: 10/20/22 Stop Date: 10/25/22 Status: Ordered benzonatate 100 mg oral capsule (10 sources) Non-narcotic Antitussive Start: 07-10-2023 take 1 [...] Ordered Start: 06-14-2021 take 1 tablet by [facility] twice daily benztropine (COGENTIN) 0.5 mg tablet TAKE ONE TABLET BY MOUTH TWICE A DAY 60 tablet 12/27/2022 Active bifidobacterium infantis 4 mg oral capsule (4 sources) Start: 10-29-2022 End: 11-26-2022 take 1 capsule by mouth once daily Align 4 mg oral capsule 4 mg = 1 cap(s), Oral, Daily, X 28 day(s), # 28 cap(s), Refills(s) 0, Pharmacy: [id number], 163, cm, 10/29/22 14:56:00 EDT, Height/Length Dosing, 77.3, kg, 10/29/22 14:56:00 EDT, Weight Dosing Start Date: 10/29/22 Stop Date: 11/26/22 Status: Ordered blood-glucose meter,continuous (DEXCOM G6 STRAW HAT MACHINE OPERATOR) misc (10 sources) Start: 10-24-2022 blood-glucose meter,continuous (DEXCOM G6 STRAW HAT MACHINE OPERATOR) misc Indications: Type 2 diabetes mellitus without complication, without long-term current use of insulin (CMS-HCC) 1 unit yearly 1 each 0 10/24/2022 Active blood-glucose sensor (DEXCOM G6 SENSOR) device (11 sources) Start: 11-01-2023 blood-glucose sensor (DEXCOM G6 SENSOR) device Indications: Type 2 diabetes mellitus without complication, without long-term current use of insulin (CMS-HCC) 1 Unit by miscellaneous route every 10 days. 3 each 11/01/2023 Active Start: 03-31-2023 End: 10-30-2023 blood-glucose sensor (DEXCOM G6 SENSOR) device Indications: Type 2 diabetes mellitus without complication, without long-term current use of insulin (CMS-HCC) 1 Unit by miscellaneous route every 10 days. 3 each 03/31/2023 10/30/2023 Discontinued (Reorder) Start: 03-31-2023 blood-glucose sensor (DEXCOM G6 SENSOR) device Indications: Type 2 diabetes mellitus without complication, without long-term current use of insulin (CMS-HCC) 1 Unit by miscellaneous route every 10 days. 3 each 03/31/2023 Active blood-glucose transmitter (DEXCOM G6 TRANSMITTER) device (11 sources) Start: 11-01-2023 blood-glucose transmitter (DEXCOM G6 TRANSMITTER) device Indications: Type 2 diabetes mellitus without complication, without long-term current use of insulin (CMS-HCC) 1 Unit by miscellaneous route every 3 (three) months. 1 each 1 11/01/2023 Active Start: 06-24-2023 End: 10-30-2023 blood-glucose transmitter (D EXCOM G6 TRANSMITTER) device Indications: Type 2 diabetes mellitus without complication, without long-term current use of insulin (CMS-HCC) 1 UNIT BY MISCELLANEOUS ROUTE EVERY 3 (THREE) MONTHS. 1 each 1 06/24/2023 10/30/2023 Discontinued (Reorder) Start: 06-24-2023 blood-glucose transmitter (DEXCOM G6 TRANSMITTER) device Indications: Type 2 diabetes mellitus without complication, without long-term current use of insulin (CMS-HCC) 1 UNIT BY MISCELLANEOUS ROUTE EVERY 3 (THREE) MONTHS. 1 each 1 06/24/2023 Active Budesonide / formoterol (4 sources) Corticosteroid, beta2-Adrenergic Agonist Start: 09-04-2021 Symbicort Inhalation, BID, Refill(s) [...] Ordered calcium carbonate 1500 mg oral tablet (14 sources) Start: 11-06-2022 take 1 tablet by [...] BID, # 180 tab(s), Refills(s) 3, Pharmacy: [id number], 163, cm, 07/25/23 10:41:00 EST, Height/Length Dosing, 80.8, kg, 07/25/23 10:47:00 EST, Weight Dosing Start Date: 07/30/23 Status: Ordered Start: 03-06-2022 take 1 tablet by colin th twice daily carvedilol 25 mg Tab 25 mg = 1 tab(s), Oral, BID, # 180 tab(s), Refills(s) 1, Pharmacy: [id number], 162, cm, 03/06/22 10:28:00 EDT, Height/Length Dosing, 78, kg, 03/06/22 10:28:00 EDT, Weight Dosing Start Date: 03/06/22 Status: Ordered Start: 06-14-2021 End: 10-27-2022 take 12.5 mg by mouth twice daily Carvedilol Active 12.5 MG PO Twice daily June 14, 2021 12:00am cetirizine hydrochloride 10 mg oral tablet (20 sources) Histamine-1 Receptor Antagonist Start: 02-24-2015 End: 11-21-2023 take 1 tablet by mouth once daily cetirizine (ZyrTEC) 10 mg tablet take one tablet by mouth once daily 30 tablet 5 11/21/2023 Active cholestyramine resin 4000 mg powder for oral suspension (10 sources) Bile Acid Sequestrant Start: 06-06-2023 cholestyramine (QUESTRAN) 4 gram powder Indications: Mixed hyperlipidemia Take 9 g of bulk powder (4 g total) by mouth in the morning and 9 g of bulk powder (4 g total) in the evening. Take with meals. 378 g 1 06/06/2023 Active clomiPRAMINE hydrochloride 50 mg oral capsule (4 sources) Tricyclic Antidepressant take 1 capsule by mouth once daily clomiPRAMINE (Anafranil) 50 MG capsule Take 50 mg by mouth 1 (one) time each day at the same time. 0 Active Continuous Blood Gluc Crude Unit Operator (Dexcom G6 clinical coordinator) device (4 sources) Start: 10-24-2022 Continuous Blood Gluc Crude Unit Operator (Dexcom G6 clinical coordinator) device 1 UNIT YEARLY 0 10/24/2022 Active Continuous Blood Gluc Sensor (Dexcom G6 Sensor) misc (4 sources) Start: 01-21-2023 Continuous Blood Gluc Sensor (Dexcom G6 Sensor) misc USE 1 UNIT DIRECTED AND CHANGE EVERY [...] hydrochloride 120 mg extended release oral capsule (14 sources) Calcium Channel Laz Start: 07-05-2023 diltiazem CD 120 mg/ 24 hours Cap-ER 120 mg = 1 cap(s), Oral, Daily, # 30 cap(s), Refills(s) 5, Pharmacy: [facility] [id number], 163, cm, 07/05/23 15:45:00 EST, Height/Length Dosing, 81.9, kg, 07/05/23 15:49:00 EST, Weight Dosing Start Date: 07/05/23 Status: Ordered Start: 07-05-2023 take 1 capsule by mo ut every twenty-four hours dilTIAZem CD (CARDIZEM CD) 120 mg 24 hr capsule Take 1 capsule (120 mg total) by mouth. 0 07/05/2023 Active diphenhydrAMINE hydrochloride 25 mg oral capsule (10 sources) Histamine-1 Receptor Antagonist Start: 01-02-2023 take [...] capsule (20 sources) Provitamin D2 Compound Start: 10-25-2021 take 1 capsule by mouth every week ergocalciferol (VITAMIN D2) 1,250 mcg (50,000 unit) capsule TAKE ONE CAPSULE BY MOUTH ONCE WEEKLY 4 capsule 11 06/28/2023 Active Start: 10-25-2021 take 1 capsule by mo uth every week ergocalciferol 50,000 intl units Cap 50,000 International_Unit = 1 cap(s), Oral, qWeek, Refills(s) 0, Prophylaxis Start Date: 10/25/21 Status: Ordered Start: 06-14-2021 take 75359 ug by colin th every week Ergocalciferol (Vitamin D2) Active 94978 MCG PO every week June 14, 2021 [...] day(s), # 90 tab(s), Refills(s) 0, Pharmacy: [email or web address] #[id number], 163, cm, 10/29/22 [...] (20 sources) Loop Diuretic Start: 06-14-2021 take 1 tablet by mouth once daily furosemide (LASIX) 20 mg tablet TAKE ONE TABLET BY MOUTH ONCE DAILY 30 tablet 11 12/27/2022 Active glimepiride 4 mg oral tablet (20 sources) [...] 12:00am ammonium lactate 120 mg/ml topical lotion (10 sources) Start: 10-22-2022 ammonium lacta te (LAC-HYDRIN) 12 % lotion Apply topically 2 (two) times a day. 400 g 0 10/22/2022 Active lidocaine 0.05 mg/mg medicated patch (9 sources) Antiarrhythmic, Amide Local Anesthetic Start: 07-22-2023 [...] oral capsule (20 sources) Opioid Agonist Start: 11-05-2023 take 1 capsule by mouth every twenty-four hours loperamide (IMODIUM) 2 mg capsule TAKE 2 CAPSULES BY MOUTH AFTER 1ST LOOSE STOOL AND 1 CAPSULE AFTER EACH NEXT BOWEL MOVEMENT; DO NOT EXCEED 16MG (8 CAPSULES) IN 24 HOURS 20 capsule 1 11/05/2023 Active Start: 12-20-2022 End: 11-04-2023 take 1 capsule by mouth every twenty-four hours loperamide (IMODIUM) 2 mg capsule TAKE 2 CAPSULES BY MOUTH AFTER 1ST LOOSE STOOL AND 1 CAPSULE AFTER EACH NEXT BOWEL MOVEMENT; DO NOT EXCEED 16MG (8 CAPSULES) IN 24 HOURS 20 capsule 1 08/07/2023 11/04/2023 Discontinued (Reorder) Start: 10-29-2022 End: 11-28-2022 Imodium 2 mg oral capsule 2 mg = 1 cap(s), Oral, q6hr, PRN as needed for loose stool, not to exceed 8 capsules, or 16 mg, in 24 hours, X 30 day(s), # 120 cap(s), Refills(s) 0, Pharmacy: [email or web address] #[id number], 163, cm, 10/29/22 [...] stool, # 120 tab(s), Refills(s) 6, Pharmacy: [facility] [id number], 162, cm, 03/30/20 10:05:00 EDT, [...] Active metFORMIN hydrochloride 500 mg oral tablet (20 sources) Biguanide Start: 11-01-2023 take 1 tablet by mouth once daily at breakfast metFORMIN (GLUCOPHAGE) 500 mg tablet Indications: Type 2 diabetes mellitus with diabetic mononeuropathy, without long-term current use of insulin ([facility]) Take 1 tablet (500 mg total) by mouth daily with breakfast. 30 tablet 5 11/01/2023 Active Start: 05-06-2023 End: 10-30-2023 take 1 tablet by mouth once daily at breakfast metFORMIN (GLUCOPHAGE) 500 mg tablet Indications: Type 2 diabetes mellitus with diabetic mononeuropathy, without long-term current use of insulin ([facility]) Take 1 tablet (500 mg total) by mouth daily with breakfast. 30 tablet 5 05/06/2023 10/30/2023 Discontinued (Reorder) Start: 09-20-2022 take 1 tablet by colin th twice daily metformin 500 mg Tab TAKE ONE TABLET BY MOUTH TWICE A DAY Start Date: 09/20/22 Status: Ordered montelukast 10 mg oral tablet (20 sources) Leukotriene Receptor Antagonist Start: 06-14-2021 take 1 tablet by mouth once daily in the evening montelukast (SINGULAIR) 10 mg tablet TAKE ONE TABLET BY MOUTH DAILY IN THE EVENING 30 tablet 11 04/01/2023 Active ucutnfke-yrac-BT-ca lcium &mins (THERAGRAN-M) 9 mg iron-400 mcg tablet (5 sources) [id number] -[id number] alcium &mins (THERAGRAN-M) 9 mg iron-400 mcg tablet Take 1 tablet by mouth in the morning. 0 Active nabumetone 750 mg oral tablet (17 sources) Nonsteroidal Anti-inflammatory Drug Start: 03-04-2023 End: 08-23-2023 nabumetone 750 mg Tab Refills(s) 0 Start Date: 09/17/23 Status: Ordered naratriptan 2.5 mg oral tablet (20 sources) Serotonin-1b and Serotonin-1d Receptor Agonist Start: 10-12-2019 naratriptan 2.5 mg Tab 2.5 mg = 1 tab(s), Oral, As Directed, PRN Migraine headache, # 9 tab(s), Refills(s) 0 Start Date: 10/12/19 Status: Ordered nebulizer accessories misc (10 sources) Start: 01-25-2023 nebulizer accessories misc Indications: Chronic obstructive pulmonary disease, unspecified COPD type ([facility]) 1 Tube by inhal. via small vol.nebulizer route every 6 (six) months. 1 each 1 01/25/2023 Active nebulizers misc (10 sources) Start: 01-25-2023 nebulizers misc Indications: Chronic obstructive pulmonary disease, unspecified COPD type ([facility]) 1 Unit by miscellaneous route every 6 (six) months. 1 each 1 01/25/2023 Active nortriptyline 25 mg oral capsule (20 sources) Tricyclic Antidepressant Start: 09-20-2022 End: 11-21-2023 take 1 capsule by mouth in the morning, then take 3 capsules by mouth at bedtime nortriptyline (PAMELOR) 25 mg capsule TAKE ONE CAPSULE BY MOUTH IN THE MORNING AND TAKE THREE CAPSULES AT BEDTIME 120 capsule 5 11/21/2023 Active Start: 06-14-2021 take 1 capsule by mo uth in the morning, then take 3 capsules [...] 0 Start Date: 07/10/21 Status: Ordered nystatin 706848 unt/ml topical cream (17 sources) Polyene Antifungal Start: 06-27-2023 End: 08-18-2023 apply 15 g topically twice daily nystatin (MYCOSTATIN) cream APPLY TO AFFECTED AREA VIA TOPICAL ROUTE TWICE A DAY 15 g 0 08/18/2023 Active Start: 06-18-2023 End: 08-23-2023 nystatin (Mycostatin) 389746 UNIT/ML suspension TAKE 5ML FOUR TIMES A DAY IN AM, NOON, EVENING, AND AT BEDTIME FOR 7 DAYS 0 06/18/2023 Active nystatin 565327 unt/ml / triamcinolone acetonide 1 mg/ml topical cream (4 sources) Polyene Antifungal, Corticosteroid Start: 05-08-2022 nystatin-triamcinolone (Mycolog II) cream APPLY 1 APPLICATION TOPICALLY IN THE MORNING AND 1 APPLICATION AT NOON AND 1 APPLICATION IN THE EVENING AND 1 APPLICATION BEFORE BEDTIME. 0 05/08/2022 Active omeprazole 40 mg oral tablet (20 sources) Proton Pump Inhibitor Start: 11-06-2023 take 40 mg by mouth once daily omeprazole 40 mg, Oral, Daily, Refills(s) 0 Start Date: 11/06/23 Status: Ordered Start: 06-22-2015 End: 09-26-2023 take 1 capsule by mouth once daily before mealtime omeprazole (PriLOSEC) 40 mg capsule TAKE ONE CAPSULE BY MOUTH ONCE DAILY BEFORE MEAL 30 capsule 5 09/26/2023 Active take 1 capsule by mo uth once daily PriLOSEC 40 MG 1 capsule Orally Once a day Active ondansetron 4 mg disintegrating oral tablet (20 sources) Serotonin-3 Receptor Antagonist Start: 06-06-2023 End: 09-08-2023 take 1 tablet by mouth every eight hours as needed for nausea and vomiting ondansetron ODT (ZOFRAN ODT) 4 mg disintegrating tablet Dissolve 1 tablet (4 mg total) on tongue every 8 (eight) hours as needed for nausea or vomiting. 10 tablet 1 09/09/2023 Active Start: 10-29-2022 End: 09-09-2023 take 1 tablet [...] Date: 09/20/22 Status: Ordered polyethylene glycol 3350 [id number] mg / potassium chloride 1480 mg / sodium bicarbonate 5720 mg / sodium chloride 89856 mg powder for oral solution (11 sources) [...] vomiting, # 90 tab(s), Refills(s) 0, Pharmacy: [facility]5, 162, cm, 05/15/22 13:20:00 EDT, Height/Length Dosing, 79, kg, 05/15/22 13:20:00 EDT, Weight Dosing Start Date: 09/05/22 Status: Ordered Start: 04-04-2020 take 1 tablet by colin th three times daily as needed for nausea promethazine 25 mg Tab 25 mg, Oral, TID, PRN as needed for nausea/vomiting, # 90 tab(s), Refills(s) 2, Pharmacy: [facility], 162, cm, 03/30/20 10:05:00 EDT, Height/Length [...] Active rimegepant 75 mg disintegrating oral tablet (19 sources) Start: 11-06-2023 take 1 tablet under the tongue every twenty-four hours Nurtec ODT 75 mg oral tablet, disintegrating 75 mg = 1 tab(s), SubLingual, q24hr, Refills(s) 0 Start Date: 11/06/23 Status: Ordered Start: 06-14-2021 take 1 tablet by colin th once daily Rimegepant (Nurtec Odt) 75 mg [...] Status: Ordered thiamine 100 mg oral tablet (20 sources) Start: 06-14-2021 take 1 tablet by mouth in the morning thiamine mononitrate, vit B1, (VITAMIN B-1) 100 mg tablet Take 1 tablet (100 mg total) by mouth in the morning. 0 07/31/2023 Active tiZANidine 4 mg oral tablet (17 sources) Central alpha-2 Adrenergic Agonist Start: 08-05-2023 [...] 10:36am traMADol hydrochloride 50 mg oral tablet (8 sources) Opioid Agonist Start: 09-20-2023 End: 10-04-2023 take 1 tablet by mouth three times daily as needed for pain traMADol (Ultram) 50 MG tablet Indications: Chronic bilateral low back pain with bilateral sciatica , Diabetic peripheral neuropathy (CMS/HCC) , Lumbar radiculopathy Take 1 tablet (50 mg) by mouth 3 (three) times a day as needed for severe pain for up to 7 days 21 tablet 0 09/27/2023 10/04/2023 Active Start: 09-17-2023 TRAMADOL HYDRO CHLORIDE TRAMADOL HYDROCHLORIDE [...] [Unspecified abdominal pain] Onset: 3 04-09-2022 Episodic Acquired foot deformities (20 sources) Hammer toe; Translations: [Other hammer toe(s) (acquired), right foot] Onset: 3 11-12-2022 Chronic Acute myocardial infarction (10 sources) Myocardial infarction 11-16-2022 Chronic Comment on [...] 4 06-16-2015 Chronic Diabetes mellitus with complications (20 sources) Diabetic peripheral neuropathy; Translations: [Type 2 diabetes mellitus with diabetic polyneuropathy] Onset: 2 06-06-2023 Chronic Diabetes mellitus without complication (20 sources) Diabetes mellitus; Translations: [Type 2 diabetes mellitus] Onset: 2 04-28-2018 Chronic Digestive congenital anomalies (20 sources) Finding of esophagus 05-09-2022 Chronic Diseases of white blood cells (14 sources) Leukocytosis; Translations: [Elevated white blood cell [...] Translations: [Osteoarthritis] Onset: 4 09-11-2018 Chronic Osteoporosis (14 sources) Osteoporosis; Translations: [Age-related osteoporosis without current pathological fracture] Onset: 3 11-16-2022 Chronic Other acquired deformities (16 sources) Contracture of joint of right ankle; Translations: [Contracture, right ankle] Onset: 3 06-06-2023 Chronic Other aftercare (1 source) Other retirement (current) drug therapy; Translations: [OTH TOURISM RADIO PRESENTER CURRENT DRUG THERAPY] Onset: 3 Episodic Other aftercare (4 sources) Encounter for change or removal of surgical wound dressing; Translations: [ENC CHG/REMOVAL SURG WOUND DRSG] Onset: 3 Episodic Other and ill-defined heart disease (6 sources) Diastolic dysfunction; Translations: [Heart disease, unspecified] Chronic Other and ill-defined heart disease (3 sources) Heart disease, unspecified Chronic Other bone disease and musculoskeletal deformities (14 sources) Osteochondritis dissecans of right ankle; Translations: [Osteochondritis dissecans, right ankle and joints of right foot] Onset: 2 05-21-2022 Chronic Other connective tissue disease (20 sources) Fibromyositis; Translations: [Fibromyalgia] Onset: 4 02-14-2015 Episodic Other connective tissue disease (3 sources) Pain in left foot; Translations: [PAIN IN LEFT FOOT] Onset: 3 Episodic Other connective tissue disease (1 source) Myalgia, other site; Translations: [Myalgia, other site] Onset: 3 Episodic Other connective tissue disease (2 sources) Plantar fasciitis; Translations: [Plantar fascial fibromatosis] 09-24-2023 Episodic Other connective tissue disease (2 sources) Bone spur of right foot; Translations: [Other enthesopathy of right foot and ankle] 09-26-2023 Episodic Other diseases of bladder and urethra (1 source) Detrusor overactivity; Translations: [Overactive bladder] Onset: 4 Chronic Other diseases of bladder and urethra (7 sources) Overactive bladder; Translations: [Overactive bladder] Onset: 4 09-17-2023 Chronic Other gastrointestinal disorders (20 sources) Irritable bowel syndrome 08-17-2015 Chronic Other gastrointestinal disorders (20 sources) Irritable bowel syndrome with diarrhea; Translations: [Irritable bowel syndrome with diarrhea] Onset: 2 Chronic Other gastrointestinal disorders (20 sources) Alteration in bowel elimination 11-07-2021 Episodic Other gastrointestinal disorders (2 sources) Abnormal feces; Translations: [Other fecal abnormalities] Onset: 3 Episodic Other gastrointestinal disorders (8 sources) Incontinence of feces; Translations: [Full incontinence of feces] Onset: 4 Episodic Other hereditary and degenerative nervous system conditions (14 sources) Restless legs; Translations: [Restless legs syndrome] [...] Onset: 2 Chronic Other nervous system disorders (14 sources) Difficulty walking; Translations: [Difficulty in walking, not elsewhere classified] Onset: 2 05-21-2022 Chronic Other nervous system disorders (14 sources) Neuropathy; Translations: [Polyneuropathy, unspecified] Onset: 2 05-21-2022 Chronic Other nervous system disorders (14 sources) Downey neuroma of bilateral feet; Translations: [Lesion of plantar nerve, bilateral lower limbs] Onset: 3 11-12-2022 Chronic Other nervous system disorders (14 sources) Parkinsonism due to drug; Translations: [Other drug induced secondary parkinsonism] Onset: 3 06-06-2023 Chronic Other nervous system disorders (14 sources) Bilateral entrapment of ulnar nerves at elbow; Translations: [Lesion of ulnar nerve, bilateral upper limbs] Onset: 3 06-20-2023 Chronic Other nervous system disorders (4 sources) Lesion of ulnar nerve; Translations: [Lesion of ulnar nerve, bilateral upper limbs] Onset: 3 07-08-2023 Chronic Other nutritional; endocrine; and metabolic disorders (20 sources) Body mass index 30+ - obesity; Translations: [Obesity, unspecified] Onset: 2 04-09-2022 Chronic Other upper respiratory disease (14 sources) Allergic rhinitis; Translations: [Allergic rhinitis, unspecified] [...] of malignant neoplasm of digestive organs] Onset: Episodic Residual codes; unclassified (20 sources) Family history of colorectal cancer; Translations: [Family history of malignant neoplasm of digestive organs] Onset: 3 09-14-2022 Episodic Residual codes; unclassified (14 sources) Menopause present; Translations: [Asymptomatic menopausal state] Onset: 3 11-16-2022 Episodic Residual codes; unclassified (1 source) Acquired absence of both cervix and uterus; Translations: [ACQUIRED ABSENCE BOTH CERVIX AND UTERUS] Onset: 3 Episodic Spondylosis; intervertebral disc disorders; other back problems (20 sources) Spondylosis without myelopathy or radiculopathy, lumbosacral region; Translations: [Other intervertebral disc degeneration, lumbar region] Onset: 0 07-01-2023 Chronic Substance-related disorders (20 sources) Smoker; Translations: [Opioid [...] Classification Problem Date Documented Da te Episodic/Chronic Calculus of urinary tract (20 sources) History of calculus of kidney; Translations: [Personal history of urinary calculi] Onset: 4 10-25-2021 Episodic Cardiac dysrhythmias (1 source) Tachycardia, unspecified; Translations: [TACHYCARDIA UNSPECIFIED] Onset: 2 Episodic Conditions associated with dizziness or vertigo (20 sources) Dizziness; Translations: [Vertigo] Onset: 2 08-17-2015 Episodic Diseases of mouth; excluding dental (20 sources) Hypertrophy of parotid gland; Translations: [Hypertrophy of salivary gland] Onset: 1 12-14-2020 Episodic Disorders of teeth and jaw (20 sources) Arthralgia of temporomandibular joint; Translations: [Arthralgia of temporomandibular joint, unspecified side] Onset: 3 04-28-2018 Episodic Fluid and electrolyte disorders (14 sources) Hyponatremia; Translations: [Hypo-osmolality and hyponatremia] Onset: 3 11-12-2022 Episodic Fracture of upper limb (2 sources) Displaced fracture of coracoid process, right shoulder, subsequent encounter for fracture with nonunion; Translations: [3-part fracture of surgical neck of right humerus, subsequent encounter for fracture with routine healing] Onset: 2 Episodic Gastritis and duodenitis (20 sources) Gastritis; Translations: [Gastritis, unspecified, without bleeding] Onset: 3 06-16-2015 Episodic Headache; including migraine (14 sources) Headache; Translations: [Headache] Onset: 3 04-12-2020 Episodic Hemorrhoids (20 sources) Hemorrhoids; Translations: [Unspecified hemorrhoids] Onset: 3 01-29-2023 Episodic Joint disorders and dislocations; trauma-related (1 source) Other tear of medial meniscus, current injury, right knee, subsequent encounter; Translations: [OTH TEAR MED MENSC CURR RT KNEE SUB] Onset: 2 Episodic Mood disorders (10 sources) Mood disorders Onset: 3 Resolved: 4 06-20-2023 Nonmalignant breast conditions (4 sources) Unspecified lump in the left breast, lower outer quadrant; Translations: [UNS LUMP IN LT BREAST LW OUTR QUAD] Onset: 3 Episodic Other acquired deformities (14 sources) Deformity of metatarsal; Translations: [Unspecified acquired deformity of unspecified lower leg] Onset: 3 06-06-2023 Episodic Other aftercare (18 sources) Patient encounter status; Translations: [Encounter for therapeutic drug level monitoring] Onset: 3 10-22-2022 Episodic Other and unspecified benign neoplasm (20 sources) Polyp of colon; Translations: [Polyp of [...] Episodic Other bone disease and musculoskeletal deformities (14 sources) Osteopenia; Translations: [Other specified disorders of bone density and structure, unspecified thigh] Onset: 3 06-06-2023 Episodic Other connective tissue disease (18 sources) Fibromyalgia; Translations: [Fibromyalgia] Onset: 0 04-12-2020 Episodic Other connective tissue disease (2 sources) Fibromyalgia; Translations: [FIBROMYALGIA] Onset: 2 Episodic Other connective tissue disease (4 sources) Impingement syndrome of right shoulder; Translations: [IMPINGEMENT SYNDROME RIGHT SHOULDER] Onset: 2 Episodic Other connective tissue disease (14 sources) H/O: musculoskeletal disease; Translations: [Personal history of other diseases of the musculoskeletal system and connective tissue] Onset: 5 04-12-2020 Episodic Other connective tissue disease (14 sources) Pain in bilateral legs; Translations: [Pain in right leg] Onset: 2 04-12-2020 Episodic Other connective tissue disease (14 sources) Pain in limb; Translations: [Pain in unspecified limb] Onset: 1 04-12-2020 Episodic Other connective tissue disease (14 sources) Bicipital tenosynovitis; Translations: [Bicipital tendinitis, unspecified shoulder] Onset: 4 05-21-2022 Episodic Other connective tissue disease (14 sources) Disorder of bursa of shoulder region; Translations: [Bursopathy, unspecified] Onset: 4 05-21-2022 Episodic Other connective tissue disease (14 sources) Bilateral plantar fasciitis; Translations: [Plantar fascial fibromatosis] Onset: 3 11-12-2022 Episodic Other connective tissue disease (14 sources) Spasm of cervical paraspinous muscle; Translations: [Other muscle spasm] Onset: 3 06-06-2023 Episodic Other connective tissue disease (10 sources) Myofascial pain syndrome; Translations: [Myalgia, other site] Onset: 4 07-01-2023 Episodic Other diseases of bladder and urethra (20 sources) Urethral stricture; Translations: [Unspecified urethral stricture, male, unspecified site] Onset: 2 04-21-2021 Episodic Other diseases of veins and lymphatics (14 sources) Peripheral venous insufficiency; Translations: [Venous insufficiency (chronic) (peripheral)] Onset: 2 05-21-2022 Episodic Other gastrointestinal disorders (20 sources) Dysphagia; Translations: [Dysphagia, unspecified] Onset: 2 06-16-2021 Episodic Other gastrointestinal disorders (20 sources) Altered bowel function; Translations: [Change in bowel habit] Onset: 2 Episodic Other gastrointestinal disorders (20 sources) Loose stool; Translations: [Other fecal abnormalities] Onset: 3 09-14-2022 Episodic Other gastrointestinal disorders (4 sources) Diarrhea, unspecified; Translations: [DIARRHEA UNSPECIFIED] Onset: 2 Episodic Other gastrointestinal disorders (14 sources) History of gastroesophageal reflux disease; Translations: [Personal history of other diseases of the digestive system] Onset: 5 04-12-2020 Episodic Other injuries and conditions due to external causes (20 sources) Foreign body in stomach; Translations: [Foreign body in stomach, initial encounter] Onset: 3 09-14-2022 Episodic Other injuries and conditions due to external causes (20 sources) Compression injury of nerve; Translations: [Other injury of unspecified body region, initial encounter] Onset: 3 11-16-2022 Episodic Comment on above: pinched nerve in nathaly k also Other injuries and conditions due to external causes (14 sources) Foreign body in stomach, initial encounter; Translations: [Foreign body in stomach] Onset: 2 05-21-2022 Episodic Other lower respiratory disease (14 sources) History of chronic obstructive airway disease; Translations: [Personal history of other diseases of the respiratory system] Onset: 5 04-12-2020 Episodic Other nervous system disorders (1 source) Other acute postprocedural pain; Translations: [OTHER ACUTE POSTPROCEDURAL PAIN] Onset: 2 Episodic Other nervous system disorders (14 sources) Abnormal gait; Translations: [Unspecified abnormalities of gait and mobility] Onset: 3 07-01-2023 Episodic Other non-traumatic joint disorders (5 sources) Pain in right knee; Translations: [PAIN IN RIGHT KNEE] Onset: 2 Episodic Other non-traumatic joint disorders (1 source) Stiffness of right knee, not elsewhere classified; Translations: [STIFFNESS RIGHT KNEE NEC] Onset: 2 Episodic Other non-traumatic joint disorders (14 sources) Pain in left shoulder; Translations: [Pain in joint, shoulder region] Onset: 4 04-12-2020 Episodic Other nutritional; endocrine; and metabolic disorders (14 sources) Overweight; Translations: [Overweight] Onset: 3 01-24-2023 Episodic Residual codes; unclassified (4 sources) Asymptomatic menopausal state; Translations: [ASYMPTOMATIC MENOPAUSAL STATE] Onset: 2 Episodic Screening and history of mental health and substance abuse codes (20 sources) H/O: anxiety state; Translations: [Personal history of other mental and behavioral disorders] Onset: 5 04-12-2020 Episodic Spondylosis; intervertebral disc disorders; other back problems (20 sources) Radiculopathy, cervical region; Translations: [Radiculopathy, lumbar region] Onset: 1 Episodic Sprains and strains (17 sources) Sprain of unspecified ligament of left ankle, initial encounter; Translations: [Sprain of unspecified site of left knee, initial encounter] Onset: 2 04-04-2023 Episodic Substance-related disorders (14 sources) Continuous opioid dependence; Translations: [Opioid use, unspecified, uncomplicated] Onset: 5 Resolved: 3 10-22-2022 Episodic Superficial injury; contusion (14 sources) Contusion of sacral region; Translations: [Contusion of lower back and pelvis, initial encounter] Onset: 3 04-04-2023 Episodic Unclassified (20 sources) Bipolar (qualifier value) 09-11-2018 Unclassified (6 sources) Exposure to 2019 novel coronavirus; Translations: [Contact with and (suspected) exposure to COVID19] Unclassified (1 source) LOW BACK PAIN, UNSPECIFIED; Translations: [LOW BACK PAIN, UNSPECIFIED] Onset: 2 Unclassified (10 sources) Onset: 3 07-10-2023 Results Test Name Value Interpretation Reference Range Facil ity Patient Correspondenceon Patient Correspondence [id number]#1.00TIFF [facility] Orders Officeon 11-22-2023 Orders Office [id number]#1.00TIFF [facility] Insurance Correspondence Off iceon 11-21-2023 Insurance Correspondence Office [id number]#2.00TIFF [facility] Outside Records Officeon Outside Records Office [id number]#1.00TIFF [facility] Consent for Treatmenton 10-18 Consent for Treatment [id number]#1.00TIFF [facility] Consultation Noteon 11-06-19 Consultation Note Patient: JESSIE HERRERA Age: 53 years Sex: Female : 1970 Associated Diagnoses: None Author: Cady Alva PA-C Basic Information Accompanied by: No one. Source of history: Self. Referral source: ROBERT GIRON DO. History limitation: None. Chief Complaint 11/06/2023 9:32 EDT lower back pain History of Present Illness Patient is a 53-year-old female. She was referred for her lower back pain but on her visual analog scale today she stevens her head, neck, hands, lower back and legs. She states that everything hurts. She states that she has had global body pain since she was 16 years old. She states that she used to be on Percocet, morphine, Dilaudid, and oxycodone which all helped her. Patient states that most other medications make her have side effects of suicidal ideations. She has allergies to amitriptyline, codeine, Cymbalta, methadone, Mobic, Lyrica, Topamax, Toradol, and Trileptal. She states that recently she saw advanced neurology and was given tramadol but it did not help her. She had a recent lumbar MRI and is here today to review this and discuss options. [facility]. In fact, she feels that it made her worse. Patient is essentially wheelchair-bound due to all the pain that she is experiencing. She also has her right foot in a brace from a recent surgery. She states that she had surgery on her Achilles tendon and then had another bone issue and had to have another surgery. Patient cannot walk, stand, or do anything because of all the pain that she is experiencing. She rates it a 9/10. She is here today to discuss options. Review of Systems Constitutional: No fever, No chills. Eye: No recent visual problem. Ear/Nose/Mouth/Throat: No decreased hearing. Respiratory: No shortness of breath, No cough. Cardiovascular: No chest pain. Gastrointestinal: No nausea, No vomiting. Genitourinary: No dysuria, No hematuria. Hematology/Lymphatics: No bruising tendency, No bleeding tendency. Musculoskeletal: Neck pain, Claudication, Decreased range of motion. Back pain: Bilaterally. Integumentary: No rash, No pruritus. Neurologic: Alert and oriented X4, Numbness, Tingling, Headache. Psychiatric: No anxiety, No depression. Health Status Allergies: Allergic Reactions (Selected) Moderate [...] Unknown. Trileptal- Unknown. Wellbutrin- Palpitations. Ziprasidone- Unknown. Current medications: No qualifying data available Problem list: All Problems MVP (mitral valve prolapse) / SNOMED CT 3700323719 / Confirmed Bipolar disorder / SNOMED CT 65975067 / Confirmed COPD (chronic obstructive pulmonary disease) / SNOMED CT 94774945 / Confirmed Vertigo / SNOMED CT 6899472755 / Confirmed Chronic pain / SNOMED CT 229889636 / Confirmed Osteoarthritis / SNOMED CT 1855509320 / Confirmed Hyperlipidemia / SNOMED CT 96827258 / Confirmed Chronic migraine / SNOMED CT 77036836 / Confirmed Sleep apnea / SNOMED CT 964453193 / Confirmed pt uses CPAP does not use cpap any longer Gastritis / SNOMED CT 2594182 / Confirmed Irritable bowel syndrome / SNOMED CT 28271232 / Confirmed Hypertension / SNOMED CT 5652035598 / Confirmed Dizziness / SNOMED CT 8996508573 / Confirmed Tarsal tunnel syndrome of left side / SNOMED CT 39164672 / Confirmed Diabetes / SNOMED CT 726792600 / Confirmed Personality disorder / SNOMED CT 65021435 / Confirmed TMJ arthralgia / SNOMED CT 422041652 / Confirmed Smoker / SNOMED CT K642LT7P-3177-16Y0-7615-F [id number] / Confirmed Added secondary to documentation in Social History. GERD (gastroesophageal reflux disease) / SNOMED CT 324357855 / Confirmed History of kidney stones / SNOMED CT 5536851382 / Confirmed Mixed incontinence urge and stress / SNOMED CT 57616703 / Confirmed Urinary frequency / SNOMED CT 381411332 / Confirmed Other urethral stricture, female / SNOMED CT 250711302 / Confirmed Incomplete emptying of bladder / SNOMED CT 728873797 / Confirmed Feeling of incomplete bladder emptying / SNOMED CT 541328184 / Confirmed Urge incontinence / SNOMED CT 134153963 / Confirmed Dysuria / SNOMED CT 63041283 / Confirmed Change in bowel habits / SNOMED CT 68888237 (more content not included)... [facility] Comment on above: Result Comment: Elec tronically Signed By: Cady Alva PA-C\.br\Date and Time Signed: 11/06/23 10:24 EDT\.br\Electronically Co-Signed By: Andrew Eid DO.br\Date and Time Co-Signed: 11/06/23 15:19 EDT HIPAA Forms Officeon 024 HIPAA Forms Office [id number]#1.00TIFF [facility] Legal Correspondence Officeo n 11-06-2023 Legal Correspondence Office [id number]#1.00TIFF [facility] Legal Correspondence Office [id number]#1.00TIFF [facility] Office/Clinic Note-Physician on 11-06-2023 Office/Clinic Note-Physician [id number]#1.00TIFF [facility] Patient Correspondenceon Patient Correspondence [id number]#1.00TIFF [facility] Patient Correspondence [id number]#1.00TIFF [facility] Patient Correspondence [id number]#1.00TIFF [facility] Patient Correspondence [id number]#1.00TIFF [facility] Patient Correspondence [id number]#1.00TIFF [facility] Patient History Officeon Patient History Office [id number]#1.00TIFF [facility] Patient History Office [id number]#1.00TIFF [facility] Physician Orderon 11-06-2023 Physician Order [id number]#1.00TIFF [facility] Radiology Outside Office Car Wash Supervisor yon 11-06-2023 Radiology Outside Office Copy [id number]#1.00TIFF [facility] Outside Records Officeon Outside Records Office [id number]#1.00TIFF [facility] Referrals Officeon Referrals Office [id number]#1.00TIFF [facility] Event Monitoron 10-01-2023 Event Monitor [id number]#1.00TIFF [facility] Formson 10-01-2023 Forms [id number]#1.00TIFF [facility] Screenson 09-18-2023 Screens [id number]#1.00TIFF [facility] Ambulatory Visit Summaryon 0 09-17-2023 Ambulatory [...] Colonoscopy (01/17/2023), Hammer toe (11/21/2022), Metatarsal (11/21/2022), Esophagogastroduodenoscop y (03/29/2022), Peroneal tendon (11/08/2021), Esophagogastroduodenoscop y (06/26/2021), Urodynamics (05/16/2021), Colonoscopy (03/14/2020), Catheterization of [...] surgery, Carpal tunnel release, Cholecystectomy, Colonoscopy, Colonoscopy, Esophagogastroduodenoscop y, Esophagogastroduodenoscop y, ESWL of kidney, Excision of ganglion cyst, [...] to do next Scheduled Follow-Up Appointments Saturday 1:00 PM EDT With: YUDY SHERI NORRIS Where: [facility] Renetta [facility] Patient Educationon 09-17-19 24 Patient Education [...] these instructions at home: Medicines ? Take iinz-lvh-vjzjxar and prescription medicines only as told by [...] the blood stops without treatment. ? Take nocq-sys-pnzkvfi and prescription medicines only as told by your health care provider. ? Drink enough fluid to keep your urine pale yellow. This information is not intended to replace advice given to you by your health care provider. Make sure you discuss any questions you have with your health care provider. Document Revised: 04/05/2021 Document Reviewed: 04/05/2021 [employer] Patient Education ? 2022 [employer]. [facility] Retail - Clinical Noteon Retail - Clinical Note [id number]#1.00TIFF [facility] Retail - Clinical Note [id number]#1.00TIFF [facility] Urology Office/Clinic Noteon 09-17-2023 Urology [...] to her (unsure if refill ran out?) [facility] [place] CC: flank pain and trouble [...] 6.2. -Begin [facility]care. [facility] f/u 3 mos to ensure working well. -Supply order provided for pads/incontinence supplies Ordered: E&M of Est. Patient Moderate 30-39 Min 09699 Urnls Dip Stick Auto w/o Microscopy POC 61291 2. Fecal incontinence (R15.9: Full incontinence of feces) Hx of IBS. Continues having complications with diarrhea and fecal incontinence follows with PCP used to follow with Dr. Bela CAZARES but he retired Ordered: E&M of Est. Patient Moderate 30-39 Min 33719 3. OAB (overactive bladder) (N32.81: Overactive bladder) see #1 Ordered: E&M of Est. Patient Moderate 30-39 Min 84851 4. Gross hematuria (R31.0: Gross hematuria) S/p [...] E&M of Est. Patient Moderate 30-39 Min 96579 5. Kidney stones (N20.0: Calculus of kidney) S/p lithotripsy 06/06/15. 24hr urine 10/25/19 done for unrelated reason (ordered by external provider): Total volume 2,525mL. CT AP wo con 10/20/22 [facility] [place] A few tiny nonobstructing R renal [...] E&M of Est. Patient Moderate 30-39 Min 49740 Orders: solifenacin, 10 mg = 1 tab(s), Oral, Daily, # 90 tab(s), Refills(s) 3, Pharmacy: [facility], 163, cm, 09/17/23 8:25:00 EST, Height/Length Dosing, 81, kg, 09/17/23 8:25:00 EST, Weight Dosing Follow-up With When Contact Information SHERI JIMENES PA-C, URL [address] [facility] [place] [address] [phone] Additional Instructions: 3 mos (restart med) Patient Education Hematuria, Adult Documentation record (more content not included)... [facility] Comment on above: Result Comment: Elec tronically Signed By: SHERI JIMENES PA-C\.br\Date and Time Signed: 09/17/23 09:07 EST\.br\Electronically Co-Signed By: Deisy Simon\.br\Date and Time Co-Signed: 09/17/23 09:00 EST Consent for Treatmenton Consent for Treatment [id number]#1.00TIFF [facility] Heart and Vascular Office/Cl inic Noteon 07-25-2023 [...] palpitations and chest pain and went to [place] for evaluation. He then saw Cady on [...] disease) Hemorrhoids (more content not included)... [facility] Comment on above: Result Comment: Elec tronically Signed By: WILL WALSH, Elliott Grewal\.br\Date and Time Signed: 07/25/23 10:57 EST Physician Orderon 07-25-2023 Physician Order [id number]#1.00TIFF [facility] Heart and Vascular Office/Cl inic Noteon [...] cardiac clearance. Apparently she had gone to [place] ER for SVT. She was ordered an event monitor and echocardiogram. Insurance has denied her echocardiogram. She had essentially normal echo in 2020. She had a cath with Dr. Beltran in 2019 with normal coronary arteries. She had her foot surgery without event. Here today now for another [place] ER visit. She had chest pain and [...] 4. Normal estimated pulmonary artery pressure. [2] [facility] 03/03/2020 CONCLUSIONS: 1. Essentially normal coronary arteriograms. 2. Noncardiac chest pain. [3] Assessment/Plan 1. Palpitations (R00.2: Palpitations) Will add diltiazem 120 mg daily to her carvedilol 25 mg twice daily. We will request records from [facility]-need to review EKG that had questionable atrial flutter if this is the case she would need to be anticoagulated. She will follow-up with Dr. Solis as previously scheduled to review results of event monitor. Portions of this record may have been created with voice recognition artificial intelligence software, specifically [employer], [employer] and or [employer]. Substitutions may have occurred due to the inherent limitations of voice recognition and artificial intelligence software. Follow-up With When Contact Information WILL WALSH, [place] [address] [phone] Additional Instructions: Follow up post event Problem [...] Colonoscopy (01/17/2023), Hammer toe (11/21/2022), Metatarsal (11/21/2022), Esophagogastroduodenoscop y (03/29/2022), Peroneal tendon (11/08/2021), Esophagogastroduodenoscop y (06/26/2021), Urodynamics (05/16/2021), Colonoscopy (03/14/2020), Catheterization of left heart (03/03/2020), Excision of Downey's (more content not included)... [facility] Comment on above: Result Comment: Elec tronically Signed By: Cady CALIX CNP\.rosi\Date and Time Signed: 07/18/23 14:27 EST Outside Recordson 07-08-2023 Outside Records [id number]#1.00TIFF [facility] Physician Orderon 07-05-2023 Physician Order [id number]#1.00TIFF [facility] Consent for Treatmenton 05-20 Consent for Treatment [id number]#1.00TIFF [facility] Retail - Clinical Noteon Retail - Clinical Note [id number]#1.00TIFF [facility] Insurance Correspondenceon 1 Insurance Correspondence [id number]#1.00TIFF [facility] Outside Recordson 05-24-2023 Outside Records [id number]#1.00TIFF [facility] Outside Records [id number]#1.00TIFF [facility] Heart and Vascular Office/Cl inic Noteon 05-21-2023 Heart and Vascular Office/Clinic Note Chief Complaint Renetta ED F/U- Tachycardia History of Present Illness [...] for foot surgery. Unfortunately, she presented to [facility] on 05/19/2023 with complaints of palpitations. Initially [...] intact- no rash or concerning lesions Procedure [facility]- Dr Fragoso 03/03/20 CONCLUSIONS: 1. Essentially normal coronary arteriograms. 2. Noncardiac chest pain. [1] [facility] (06/07/2021 14:15 EDT Echo Transthoracic Complete) SUMMARY/CONCLUSION: 1. Normal left ventricle and right ventricle. 2. Borderline impaired diastolic relaxation. 3. No significant valve disease. 4. Normal estimated pulmonary artery pressure. [2] [1] Assessment/Plan 1. Sinus tachycardia (R00.0: Tachycardia, unspecified) In [place] ER for palpitation, noted to be sinus [...] with voice recognition artificial intelligence software, specifically [employer], [employer] and or [employer]. Substitutions may have occurred due to the inherent limitations of voice recognition and artificial intelligence software. Follow-up With When Contact Information WILL WALSH, Elliott Grewal Within 6 weeks [address] [place] [address]- [phone] Additional Instructions: Problem List/Past Medical History Ongoing [...] Colonoscopy (01/17/2023), Hammer toe (11/21/2022), Metatarsal (11/21/2022), Esophagogastroduodenoscop y (03/29/2022), Peroneal tendon (11/08/2021), Esophagogastroduodenoscop y (06/26/2021), Urodynamics (05/16/2021), Colonoscopy (03/14/2020), Catheter (more content not included)... [facility] Comment on above: Result Comment: Elec tronically Signed By: Cady CALIX CNP\Date and Time Signed: 05/21/23 12:56 EDT Consent for Treatmenton Consent for Treatment [id number]#1.00CD:12 7 [facility] Physician Orderon 05-20-2023 Physician Order [id number]#1.00CD:1 27 [facility] Physician Orderon 05-17-2023 Physician Order Confirmed with Ana Rosa olivas @ [facility] that fax was received [id number]#1.00CD:1 27 [facility] Consent for Treatmenton 04-20 Consent for Treatment [id number]#1.00CD:12 7 [facility] Heart and Vascular Office/Cl inic Noteon 05-16-2023 [...] Colonoscopy (01/17/2023), Hammer toe (11/21/2022), Metatarsal (11/21/2022), Esophagogastroduodenoscop y (03/29/2022), Peroneal tendon (11/08/2021), Esophagogastroduodenoscop y ( (more content not included)... [facility] Comment on above: Result Comment: Elec tronically Signed By: WILL WALSH, Elliott Grewal\.br\Date and Time Signed: 05/16/23 10:46 EDT Physician Orderon 05-16-2023 Physician Order [id number]#1.00CD:1 [address] [facility] CT lung screeningon 04-03-20 CT lung screening [facility] [address] [place] [id number] CT Scan Report Signed Patient: Keturah Herrera MR#: [id number] [id number] : 1970 Acct:[id number] Age/Sex: 52 / F ADM Date: 04/03/23 Loc: [facility] [place] Room: Type: [facility] Attending Dr: Valarie Herrera APRN, CARRILLO Copies to: Valarie Herrera APRN, ACNP-BC Ordering [...] Allison Castaneda M.D.04/03/2023 2:31 PM Dictation Location: [place] [address] Transcribed By: [facility] 04/03/23 1431 Dictated By: Allison Castaneda MD 04/03/23 1423 Signed By: 04/03/23 1431 [facility] Reminderson 01-30-2023 Reminders - From: Inessa Grajeda CNP To: Shalonda Singh; Sent: 01/29/2023 12:17:11 EDT Show up: 01/29/2023 12:18:00 EDT Subject: Ambulatory Reminder Reminder/Recall Colonoscopy in 2027. 01/18/[address] cramer From: Shalonda Singh To: [facility] - Reminders/Recalls; Sent: 01/30/2023 09:24:18 EDT ! Show up: 12/18/2027 09:24:00 EDT Due Date/Time: 01/18/2028 09:24:00 EDT [facility] Ambulatory Visit Summaryon 0 01-29-2023 Ambulatory [...] Colonoscopy (01/17/2023), Hammer toe (11/21/2022), Metatarsal (11/21/2022), Esophagogastroduodenoscop y (03/29/2022), Peroneal tendon (11/08/2021), Esophagogastroduodenoscop y (06/26/2021), Urodynamics (05/16/2021), Colonoscopy (03/14/2020), Catheterization of [...] surgery, Carpal tunnel release, Cholecystectomy, Colonoscopy, Colonoscopy, Esophagogastroduodenoscop y, Esophagogastroduodenoscop y, ESWL of kidney, Excision of ganglion cyst, [...] 225 m (more content not included)... [facility] Gastroenterology Office/Clin ic Noteon 01-29-2023 Gastroenterology [...] in 5 (more content not included)... [facility] Comment on above: Result Comment: Elec [...] serving. ? Talk with a diet and food and nutrition supervisor (dietitian) if you have questions about specific [...] Bulgur wheat. Millet. Quinoa. Bran muffins. Popcorn. [place] wafer crackers. Meats and other proteins [place], kidney, and georges beans. Soybeans. Split peas. [...] Cream cheese. Sour cream. Fats and oils [place]. Beverages Soft drinks. Other foods Cakes and [...] 08/05/2006 Document Revised: 06/09/2018 Document Reviewed: 06/09/2018 [employer] Patient Education ? 2019 [employer]. Gastroenterology H (more content not included)... [facility] Postoperative Documentson Postoperative Documents [id number]#1.00CD:1 27 [facility] Consenton 01-21-2023 Consent [id number]#1.00CD:12 7 [facility] Discharge Instructionson Discharge Instructions [id number]#1.00CD:12 7 [facility] IntraOperative Documentson 0 01-21-2023 IntraOperative Documents [id number]#1.00CD:12 7 [facility] Progress Note-Physicianon Progress Note-Physician Patient: KETURAH HERRERA Age: 52 years Sex: Female : 1970 Associated Diagnoses: None Author: MD Nichole, [facility] Postoperative Information Postoperative disposition: Postoperative disposition: To PACU. Optimetrix number: Optimetrix number [id number]. Anesthetic utilized: General. Health Status Allergies: Allergic [...] meets criteria ( To home ). [facility] Comment on above: Result Comment: Elec tronically Signed By: MD Nichole, Patrick Keller\.br\Date and Time Signed: 01/18/23 14:09 EDT Progress [...] stool, # 120 tab(s), Refills(s) 6, Pharmacy: [facility], 162, cm, 03/30/20 10:05:00 EDT, Height/Length Dosing, 74.2, kg, 03/30/20 10:05:00 EDT, Weight Dosing Pepcid 20 mg Tab: 20 mg = 1 tab(s), Oral, Once a day (at bedtime), X 90 day(s), # 90 tab(s), Refills(s) 0, Pharmacy: [facility], 163, cm, 10/29/22 14:56:00 EDT, Height/Length Dosing, 77.3, kg, 10/29/22 14:56:00 EDT, Weight Dosing Vesicare 10 mg Tab: 10 mg = 1 tab(s), Oral, Daily, # 30 tab(s), Refills(s) 5, Pharmacy: [facility], 163, cm, 04/09/22 14:41:00 EDT, Height/Length Dosing, 80, kg, 04/09/22 14:41:00 EDT, Weight Dosing carvedilol 25 mg Tab: 25 mg = 1 tab(s), Oral, BID, X 90 day(s), # 180 tab(s), Refills(s) 3, Pharmacy: [facility], 162, cm, 05/15/22 13:20:00 EDT, Height/Length [...] list: All Problems Anxiety / SNOMED CT 87059252 / Confirmed Bipolar disorder / SNOMED CT 93082595 / Confirmed BMI 30.0-30.9,adult / SNOMED CT 886795816 / Confirmed Change in bowel habits / SNOMED CT 803768095 / Confirmed Chronic migraine / SNOMED CT 89217670 / Confirmed Chronic pain / SNOMED CT 476741908 / Confirmed COPD (chronic obstructive pulmonary disease) / SNOMED CT 54499266 / Confirmed Depression / SNOMED CT 79670230 / Confirmed Diabetes / SNOMED CT 730632856 / Confirmed Dizziness / SNOMED CT 4151084430 / Confirmed Dysuria / SNOMED CT 83383825 / Confirmed Esophageal spasm / SNOMED CT 641856480 / Confirmed Family history of colorectal cancer / SNOMED CT 2783702371 (more content not included)... [facility] Comment on above: Result Comment: Elec tronically Signed By: MD Nichole, Patrick F\.br\Date and Time Signed: 01/18/23 14:08 EDT Consent for Treatmenton 0 Consent for Treatment [id number]#1.00CD:12 7 [facility] Discharge Instructionson Discharge Instructions KETURAH HERRERA [...] Procedure History Hammer toe (11/21/2022), Metatarsal (11/21/2022), Esophagogastroduodenoscop y (03/29/2022), Peroneal tendon (11/08/2021), Esophagogastroduodenoscop y (06/26/2021), Urodynamics (05/16/2021), Colonoscopy (03/14/2020), Catheterization of [...] surgery, Carpal tunnel release, Cholecystectomy, Colonoscopy, Colonoscopy, Esophagogastroduodenoscop y, Esophagogastroduodenoscop y, ESWL of kidney, Excision of ganglion cyst, [...] 24 hours Discharge Diet(s) Regular Pharmacy Information [facility] Discharge Instructions Discharge Instructions Previously Scheduled Follow-Up Appointments Saturday 1:20 PM EDT With: SHERI JIMENES PA-C Where: [facility] Normal [address] [address]- \.br\ New Follow Up Appointments after Discharge\.br \ Follow Up with BELA WALSH, Zulema, DHAVAL, MED When: \.br\ Comments:\.br\ Office will call to schedule follow up appointment\.br \ Where:\.br\ [address]\.br\ [place] [address]\.br\ \.br\ Medications\.br \ What How Much When Why Instructions Next [...] Mouth Once a day (at bedtime) GERD (gastroesophage al reflux disease) Duration: 90 Days\.br\ Unchanged fremanezumab [...] (Unknown)\.br\ Decadron (Hot flashes)\.br\ Depakote (Alopecia)\.br\ Geodon (Palpitations)\ .br\ Lyrica (Unknown)\.br\ Macrobid (unknown)\.br\ Mobic (Unknown)\.br\ Paxil (Unknown)\.br\ Requip (Altered mental status)\.br\ Robaxin (Unknown)\.br\ Savella (Unknown)\.br\ Strattera (Palpitations)\ .br\ Tape (Rash)\.br\ Topamax (Vomiting)\.br\ Toradol (Unknown)\.br\ Trileptal (Unknown)\.br\ Wellbutrin (Palpitations)\ .br\ amitriptyline (Vomiting)\.br\ amoxicillin (Hives)\.br\ codeine (Rash)\.br\ dexamethasone (Hot flashes)\.br\ doxycycline (Palpitations)\ .br\ fluticasone (Unknown)\.br\ ibuprofen (Rash)\.br\ methadone (Vomiting)\.br\ penicillins (Unknown)\.br\ pregabalin (Palpitations)\ .br\ shellfish (Rash)\.br\ ziprasidone (Unknown)\.br\ Problems\.br\ Ongoing - Any problem that you are currently receiving treatment for.\.br\ Anxiety\.br\ BMI 30.0-30.9,adult \.br\ Change in bowel habits\.br\ Depression\.br\ Dysuria\.br\ Esophageal spasm\.br\ Family history of colorectal cancer\.br\ Feeling of incomplete bladder emptying\.br\ Flank pain\.br\ Foreign body in stomach, sequela\.br\ Gastric bezoar\.br\ Gastric erosions\.br\ GERD (gastroesophage al reflux disease)\.br\ History of kidney stones\.br\ Incomplete emptying of bladder\.br\ Irritable bowel syndrome with diarrhea\.br\ Loose stools\.br\ Menopause\.br\ Mixed incontinence urge and stress\.br\ Nausea and vomiting\.br\ Nocturia\.br\ Osteoporosis\.b r\ Other urethral stricture, female\.br\ Pinched nerve in neck\.br\ Screen for colon cancer\.br\ Smoker\.br\ Stress incontinence\.b r\ Tertiary contraction of esophagus\.br\ Urge incontinence\.b r\ Urinary frequency\.br\ Vomiting\.br\ Historical - Any problem that you are no longer receiving treatment for.\.br\ ADHD (attention deficit hyperactivity disorder)\.br\ Agoraphobia\.br \ Anxiety\.br\ Benign hypertension\.b r\ Bipolar\.br\ Common migraine\.br\ Depression\.br\ Diabetes mellitus type 2\.br\ Dysphagia\.br\ Fibromyalgia\.b r\ Generalised osteoarthritis\ .br\ Heart attack\.br\ Hypercholestero laemia\.br\ Neuropathy, peripheral\.br\ OCD (obsessive compulsive disorder)\.br\ CELINE - Obstructive sleep apnea\.br\ Post traumatic stress disorder (PTSD)\.br\ Education Materials\.br\ \.br\ Colonoscopy\.br \ Care After Surgery\.br\ \.br\ Please read the [...] alcoholic beverages for 24 hours or as instructed.\.br \ \.br\ MEDICATIONS\.br \ You may resume your normal medications unless [...] discomfort that is severe or gets [facility] Comment on above: Result Comment: Elec [...] diagnosis: Age 50 years or over. Medications Anticoagulant/antiplatele t None. ASA Classification: Class II. . Procedure [...] Small nonbleeding internal hemorrhoids Images Procedure images: Rec1_hd_video_2022__T [id number].jpg Rec1_hd_video__T [id number].jpg Rec1_hd_video__ 08_38_30_818.jpg Rec1_hd_video_ 08_35_04_258.jpg Rec1_hd_video__T 08_35_27_199.jpg . Post-Procedure Complications: none. Estimated blood loss: [...] Return to activities:: After 24 hours. Normal [facility] Comment on above: Result Comment: Elec tronically Signed By: Zulema CRAMER MD\.br\Date and Time Signed: 01/17/23 09:42 EDT Other Comment: Elba augustin Attachment - attachment storage system not supported [id number] Can be viewed in source system Missing Attachment - attachment storage system not supported [id number] Can be viewed in source system Missing Attachment - attachment storage system not supported [id number] Can be viewed in source system Missing Attachment - attachment storage system not supported [id number] Can be viewed in source system Missing Attachment - attachment storage system not supported [id number] Can be viewed in source system Main OR Intraoperative Recor don 01-17-2023 Main OR Intraoperative Record IntraOp Document Type FT Summary Primary Physician: Zulema CRAMER MD Finalized Date/Time: 01/17/23 12:22:14 Pt. Name: KETURAH HERRERA/Sex: 1970 Female Med Rec #: [id number] Physician: Zulema CRAMER MD Financial #: [id number] Pt. Type: O Room/Bed: Endo 10/17 Admit/Disch: [...] Ye Wilks RN, Goldie Chan Role Performed MICHELLE [employer] Broker[employer] Agent - Primary Scrub - Primary Time In 01/17/23 09:23:00 01/17/23 09:23:00 01/17/23 09:23:00 Time Out 01/17/23 09:38:00 01/17/23 09:38:00 01/17/23 09:38:00 Procedure COLONOSCOPY(.) COLONOSCOPY(.) COLONOSCOPY(.) Comments Dr. Varela supervising case Last Modified By: Andrés Wilks RN, RN, Morgan E Souter RN, Morgan E 01/17/23 09:38:42 01/17/23 09:38:42 01/17/23 09:38:42 Entry [...] PreOp Antibiotic No Time Out Ye Porras CRNA Given Participants Andrés Wilks RN, Sparks, Micala E, SALAM MD, Maher Time Out Complete 01/17/23 09:25:00 Outcomes Met? [...] Right Arm (more content not included)... Normal [facility] Main OR PACU I Recordon Main OR PACU I Record PACU Phase I Document Type FT Summary Primary Physician: Zulema CRAMER MD Finalized Date/Time: 01/17/23 10:32:26 Pt. Name: KETURAH HERRERA/Sex: 1970 Female Med Rec #: [id number] Physician: Zulema CRAMER MD Financial #: [id number] Pt. Type: O Room/Bed: Endo 10/17 Admit/Disch: [...] By: LIZZETTE SOL RN 01/17/23 10:32 Normal [facility] Main OR Preoperative Recordo n 01-17-2023 Main OR Preoperative Record Holding Area Document Type FT Summary Primary Physician: Zulema CRAMER MD Finalized Date/Time: 01/17/23 08:35:14 Pt. Name: KETURAH HERRERA.O.B./Sex: 1970 Female Med Rec #: [id number] Physician: Zulema CRAMER MD Financial #: [id number] Pt. Type: O Room/Bed: Endo 10/17 Admit/Disch: [...] night. Patient states last bowel movement clear yellow./KS,RN Finalized By: Sonya See RN Document Signatures Signed By: Sonya See RN 01/17/23 08:35 Normal [facility] Monitor Recordon 01-17-2023 Monitor Record [id number]#1.00CD:1 27 Normal [facility] Monitor Record [id number]#1.00CD:1 27 Normal [facility] Patient Education - Texton 0 01-17-2023 [...] a plas (more content not included)... Normal [facility] XR KNEE LT 4V or >on 023 [...] IMPRESSION: No acute fracture. Electronically authenticated by: LILINAA NDIAYE Date: 2022-11-29 16:44 Normal [facility] Formson 11-28-2022 Forms [id number]#1.00CD:1 27 Normal [facility] CHEMISTRYOrdered By: Lab ROP User on 11-21-2022 Glucose [Mass/Vol] 91 mg/dL Normal 55 - 99 mg/dL FTM C POC Subsection Comment on above: Result Comment: Dahlia hoover Meter POC Device SN [id number] Invalid Interpretation [place] [facility] [place] Sub[place] POC User ID [id number] Invalid Interpretation Code [facility] [place] Subsection POC Username BILLY HOGUE Invalid Interpretation Code [facility] [place] Subsection CHEMISTRYOrdered By: SYSTEM SYSTEM on 03-04-2023 Anion gap [Moles/Vol] 13 mmol/L Normal 6 - 16 mEq/L FT Remisol Calcium [Mass/Vol] 9.5 mg/dL Normal 8.9 - 11. 1 mg/dL FT [facility] Chloride [Moles/Vol] 99 mmol/L Low 101 - 111 mmol/L FT Remisol CO2 [Moles/Vol] 26 mmol/L Normal 21 - 31 mmol/L FT Remisol Creatinine [Mass/Vol] 1.1 mg/dL Normal 0.5 - 1.3 mg/dL FT Remisol GFR/1.73 sq M.predicted among blacks MDRD (S/P/Bld) [Vol rate/Area] mL/min/1.73 m2 Normal >=59mL/min/1.73 m2 [facility] [place] Chem S GFR/1.73 sq M.predicted among non-blacks MDRD (S/P/Bld) [Vol rate/Area] 52 mL/min/1.73 m2 Low >=59mL/min/1.73 m2 [facility] [place] Chem S Glucose [Mass/Vol] 127 mg/dL Normal 55 - 199 mg/dL FT Remisol Potassium [Moles/Vol] 4.0 mmol/L Normal 3.5 - 5.3 mmol/L FT Remisol Sodium [Moles/Vol] 134 mmol/L Low 135 - 145 mmol/L FT Remisol Urea nitrogen [Mass/Vol] 7 mg/dL Normal 5 - 21 mg/dL FT Remisol Urea nitrogen/Creatinin e [Mass ratio] 6 mg/mg Low 10 - 20 [facility] Remisol HEMATOLOGYOrdered By: SYSTEM SYSTEM on 10-20-2022 Basophils/100 [...] E12/L Normal 4.3 - 5.9 E12/L FT HemeAutoSS WBC corrected for nucl RBC Auto (Bld) [#/Vol] 12.1 E9/L High 4.0 - 11.0 E9/L FT HemeAutoSS URINALYSISOrdered By: Osito Henderson on 10-20-2022 Bacteria [...] AM) Normal Negative [facility] UA Auto SS Harrah.plasma/Lit hium.RBC (Bld) [Mass ratio] 0-3 /HPF Normal 0-3/HPF [facility] UA Auto SS Nitrite Ql (U) Negative (10/20/22 11:40 AM) Normal Negative [facility] UA Auto SS pH (U) 6.0 *NA* (10/20/22 11:40 AM) Invalid Interpretation Code 5.0 - 9.0 [facility] Auto SS Protein (U) [Mass/Vol] Negative (10/20/22 11:40 AM) Normal Negative [facility] UA Auto SS Specific gravity (U) [Rel density] <=1.005 *NA* (10/20/22 11:40 AM) Invalid Interpretation Code 1.005 - 1.030 [facility]A Auto SS UA Spec Desc Clean Catch (10/20/22 11:40 AM) Normal [facility] Auto SS Urobilinogen Qn (U) 0.0543935 {Gareth'U}/dL Normal 0.0 - 1.0 EU/dL [facility] UA Auto SS WBC Auto Ql (U) 1+ *ABN* (10/20/22 11:40 AM) Invalid Interpretation Code Negative [facility] UA Auto SS WBC LM.HPF (Urine sed) [#/Area] 0-5 /HPF Normal 0-5/HPF [facility] UA Auto SS MG [facility]M DIAGNOSTIC 3D TAJ CA Don 09-10-2022 MG [facility] DIAGNOSTIC 3D TAJ CAD Patient: KETURAH HERRERA Exam Date: 09/10/2022 : 1970 Gender:F Ordering : DR FREDERICK MAHARAJ . Admission #: [id number] Family : Order #: [id number] CLICK HERE TO VIEW EXAM RADIOLOGY REPORT [...] ovarian cancer at age 60. LOCATION: [facility] BREAST COMPOSITION: Heterogeneously dense,which may obscure [...] M.D. on 09/10/2022 at 13:[address] [facility] US BREAST LEFT LIMITEDon US BREAST LEFT LIMITED Patient: KETURAH HERRERA Exam Date: 09/10/2022 : 1970 Gender:F Ordering : DR FREDERICK MAHARAJ . Admission #: [id number] Family : Order #: [id number] CLICK HERE TO VIEW EXAM RADIOLOGY REPORT [...] ovarian cancer at age 60. LOCATION: [facility] BREAST COMPOSITION: Heterogeneously dense,which may obscure [...] Roach M.D. on 09/10/2022 at 13:54 Normal [facility] XR DEXA BONE DENSITYon 08-06 XR DEXA [...] by: DELORES ROACH Date: 2022-08-06 14:11 Normal [facility] XR CHEST 2 Von 07-04-2022 XR CHEST [...] NICOLE ROJAS Date: 2022-07-04 14:[address] [facility] XR KNEE RT 4V or >on XR KNEE RT 4V or > EXAM: [...] NICOLE ROJAS Date: 2022-07-03 18:[address] [facility] CBC AUTO DIFFon 04-30-2022 BASO # 0.1 103/ul Normal 0.0-0.1 [facility] Comment on above: Performed By: #### C BC ####[facility] [address] [place] [id number] Vann Taylor Basophils/100 WBC (Bld) 0.7 % Normal 0.2-2.0 [facility] Comment on above: Performed By: #### C BC ####[facility] [address] [place] [id number]. Soo Taylor EO # 0.1 103/ul Normal 0.0-0.[address] [facility] Comment on above: Performed By: #### C BC ####[facility] [address] [place] [address]Dr. Soo Taylor Eosinophils/100 WBC (Bld) 0.4 % Critically low 0.9-7.[address] [facility] Comment on above: Performed By: #### C BC ####[facility] [address] [place] [address]Dr. Soo Taylor Erythrocyte distribution width (RBC) [Ratio] 15.1 % Critically high 11.0-15.0 [facility] Comment on above: Performed By: #### C BC ####[facility] [address] [place], [place] [address]Dr. Soo Taylor Hematocrit (Bld) [Volume fraction] 43.4 % Normal 36.0-48.[address] [facility] Comment on above: Performed By: #### C BC ####[facility] [address] [place], [place] [address]Dr. Soo Taylor Hemoglobin (Bld) [Mass/Vol] 14.4 g/dL Normal 12.0-16.[address] [facility] Comment on above: Performed By: #### C BC ####[facility] [address] [place], [place] [address]Dr. Soo Taylor IG # 0.06 10e3/ul Critically high 0.00-0.03 [facility] Comment on above: Performed By: #### C BC ####[facility] [address] [place] [address]Dr. Soo Taylor IG % 0.4 % Normal 0.0-0.[address] [facility] Comment on above: Performed By: #### C BC ####[facility] [address] [place], [place] [address]Dr. Soo Taylor LYMPH # 5.4 103/ul Critically high 1.2-3.8 [facility] Comment on above: Performed By: #### C BC ####[facility] [address] [place] [address]Dr. Ileneleah Taylor Lymphocytes/100 WBC (Bld) 36.6 % Normal 20.5-60.[address] [facility] Comment on above: Performed By: #### C BC ####[facility] [address] [place] [address]Dr. Ileneleah Taylor MANUAL DIFF REQ NO Normal [facility] Comment on above: Performed By: #### C BC ####[facility] [address] [place] [address]Dr. Ileneleah Taylor MCH (RBC) [Entitic mass] 29.4 pg Normal 26.7-34.[address] [facility] Comment on above: Performed By: #### C BC ####[facility] [address] [place], [place] [address]Dr. Soo Taylor MCHC (RBC) [Mass/Vol] 33.2 g/dL Normal 29.9-35.[address] [facility] Comment on above: Performed By: #### C BC ####[facility] [address] [place], [place] [address]Dr. Soo Taylor MCV (RBC) [Entitic vol] 88.6 fL Normal 81.0-99.[address] [facility] Comment on above: Performed By: #### C BC ####[facility] [address] [place], [place] [address]Dr. Soo Taylor MONO # 0.9 103/ul Critically high 0.3-0.8 [facility] Comment on above: Performed By: #### C BC ####[facility] [address] [place], [place] [address]Dr. Soo Taylor Monocytes/100 WBC (Bld) 6.4 % Normal 1.7-12.[address] [facility] Comment on above: Performed By: #### C BC ####[facility] [address] [place], [place] [address]Dr. Soo Taylor NEUT # 8.1 103/ul Critically high 1.4-6.5 [facility] Comment on above: Performed By: #### C BC ####[facility] [address] [place] [address]Dr. Soo Taylor Neutrophils/100 WBC (Bld) 55.5 % Normal 43.0-75.[address] [facility] Comment on above: Performed By: #### C BC ####[facility] [address] [place] [address]Dr. Soo Taylor Platelet mean volume (Bld) [Entitic vol] 9.9 fL Normal 9.5-13.[address] [facility] Comment on above: Performed By: #### C BC ####[facility] [address] [place], [place] [address]Dr. Soo Taylor PLT 326 103/ul Normal 150-[address] [facility] Comment on above: Performed By: #### C BC ####[facility] [address] [place], [place] [address]Dr. Soo Taylor RBC 4.90 106/ul Normal 4.20-5.40 [facility] Comment on above: Performed By: #### C BC ####[facility] [address] [place], [place] [address]Dr. Soo Taylor WBC 14.6 103/ul Critically high 4.0-11.0 [facility] Comment on above: Performed By: #### C BC ####[facility] [address] [place], [place] [address]Dr. Soo Taylor PROF CHEM 8 (BAS METB)on Anion gap [Moles/Vol] 12.9 mmol/L Normal [facility] Comment on above: Performed By: #### B MP ####[facility] [address]rix[address] [place], [place] [address]Dr. Soo Taylor Calcium [Mass/Vol] 9.5 mg/dL Normal 8.5-10.1 [facility] Comment on above: Performed By: #### B MP ####[facility] [address] [place], [place] [address]Dr. Soo Taylor Chloride [Moles/Vol] 101 mmol/L Normal 98-[address] [facility] Comment on above: Performed By: #### B MP ####[facility] [address] [place] [address]Dr. Soo Taylor CO2 [Moles/Vol] 26.6 mmol/L Normal 21.0-32.0 [facility] Comment on above: Performed By: #### B MP ####[facility] [address] [place] [address]Dr. Soo Taylor Creatinine [Mass/Vol] 1.11 mg/dL Critically high 0.55-1.02 [facility] Comment on above: Performed By: #### B MP ####[facility] [address] [place] [address]Dr. Soo Taylor EGFR-AF BELIZEAN >60 Normal >=60 [facility] Comment on above: Performed By: #### B MP ####[facility] [address] [place] [address]Dr. Soo Taylor EGFR-NON AF BELIZEAN 52 mL/min/1.73m2 Critically low >=60 [facility] Comment on above: Performed By: #### B MP ####[facility] [address] [place] [address]Dr. Soo Taylor Glucose [Mass/Vol] 145 mg/dL Critically high 74-[address] [facility] Comment on above: Performed By: #### B MP ####[facility] [address] [place] [address]Dr. Soo Taylor Potassium [Moles/Vol] 3.5 mmol/L Normal 3.5-5.1 [facility] Comment on above: Performed By: #### B MP ####[facility] [address] [place] [address]Dr. Soo Taylor Sodium [Moles/Vol] 137 mmol/L Normal 136-145 [facility] Comment on above: Performed By: #### B MP ####[facility] [address] [place], [place] [address]Dr. Soo Taylor Urea nitrogen [Mass/Vol] 2.0 mg/dL Critically low 7.0-18.0 [facility] Comment on above: Performed By: #### B MP ####[facility] [address] [place] [id number]. Soo Taylor Urea nitrogen/Creatinin e [Mass ratio] 1.8 mg/mg Normal [facility] Comment on above: Performed By: #### B MP ####[facility] [address] [place] [id number]. Soo Taylor TROPONIN, HIGH SENSITIVITYon 04-30-2022 HSTROP 5.1 pg/mL Normal 4.0-51.[address] [facility] Comment on above: Result Comment: CUT- OFF POINTS HAVE BEEN ESTABLISHED BASED ON THE FOURTH UNIVERSAL DEFINITIONS OF MYOCARDIAL INFARCTION. THE UPPER REFERENCE LIMIT (URL) OF TROPONIN, DEFINED THE 99TH PERCENTILE OF cTnI DISTRIBUTION IN A REFERENCE POPULATION, HAS BEEN CONFIRMED THE DECISION THRESHOLD FOR LA DIAGNOSIS. Performed By: #### H KRISTI ####[facility] [address] [place], [place] [id number]. Soo Taylor HSTROP 4.6 pg/mL Normal 4.0-51.[address] [facility] Comment on above: Result Comment: CUT- OFF POINTS HAVE BEEN ESTABLISHED BASED ON THE FOURTH UNIVERSAL DEFINITIONS OF MYOCARDIAL INFARCTION. THE UPPER REFERENCE LIMIT (URL) OF TROPONIN, DEFINED THE 99TH PERCENTILE OF cTnI DISTRIBUTION IN A REFERENCE POPULATION, HAS BEEN CONFIRMED THE DECISION THRESHOLD FOR LA DIAGNOSIS. Performed By: #### H STROPN ####[facility] [address] [place], [place] [address]Dr. Soo Taylor MRI LSPINE WO CONon 04-06-20 [...] by: MAMIE HERNANDEZ Date: 2022-04-06 18:18 Normal [facility] MRI KNEE RT WO CONon 022 MRI [...] by: MAMIE HERNANDEZ Date: 2022-03-28 11:40 Normal [facility] MRI SHOULDER RT WO CONon MRI SHOULDER [...] MAMIE HERNANDEZ Date: 2022-03-28 09:[address] [facility] ER URINE PROFILEon 2 Bilirubin Ql (U) Negative Normal NEGATIVE [facility] Comment on above: Performed By: #### E RUR #### [facility] [address] [place] [address] [address] Soo Taylor Clarity (U) CLEAR Normal CLEAR [facility] Comment on above: Performed By: #### E RUR #### [facility] [address] [place], [place] [address] Dr. Soo Taylor Color (U) LT. YELLOW Normal YELLOW [facility] Comment on above: Performed By: #### E RUR #### [facility] [address] [place] [address] [address] Soo RUFF A micrscopic examina tion will be performed if indicated. Normal [facility] Comment on above: Performed By: #### E RUR #### [facility] [address] [place] [address] Dr. Soo Taylor Glucose Ql (U) Negative Normal NEGATIVE The [facility] Comment on above: Performed By: #### E RUR #### [facility] [address] [place] [address] [address] Soo Taylor Hemoglobin Ql (U) Negative Normal NEGATIVE [facility] Comment on above: Performed By: #### E RUR #### [facility] [address] [place] [address] Dr. Soo Taylor Ketones Ql (U) Negative Normal NEGATIVE The [facility] Comment on above: Performed By: #### E RUR #### [facility] [address] [place] [address] Dr. Soo Taylor LEUKOCYTES Negative Normal NEGATIVE [facility] Comment on above: Performed By: #### E RUR #### [facility] [address] [place] [address] Dr. Soo Taylor Nitrite Ql (U) Negative Normal NEGATIVE [facility] Comment on above: Performed By: #### E RUR #### [facility] [address] [place] [address] Dr. Soo Taylor pH (U) 5.5 [pH] Normal 5-9 [facility] Comment on above: Performed By: #### E RUR #### [facility] [address] [place] [address] Dr. Soo Taylor SPEC GRAVITY <=1.005 Abnormal 1.005-<=1.025 [facility] Comment on above: Performed By: #### E RUR #### [facility] [address] [place] [address] Dr. Soo Taylor UA PROTEIN Negative Normal NEGATIVE/ TRACE [facility] Comment on above: Performed By: #### E RUR #### [facility] [address] [place] [address] [address] Soo Taylor UR MICRO IND NOT INDICATED Normal [facility] Comment on above: Performed By: #### E RUR #### [facility] [address] [place] [address] [address] Soo Taylor Urobilinogen Qn (U) 0.2 {Gareth'U}/dL Normal 0.2 - 1.0 [facility] Comment on above: Performed By: #### E RUR #### [facility] [address] [place] [address] [address] Soo Taylor [facility] METABOLIC PANE [facility] [place] 02-22-2022 Albumin [Mass/Vol] 4.2 g/dL Normal 3.6-5.1 [facility] Comment on above: Performed By: #### 7 600, 68932, 496 #### [facility] [place] [address] Home Service Technician: Arjun Ramos MD Albumin/Globulin [Mass ratio] 1.8 {ratio} Normal 1.0-2.5 [facility] Comment on above: Performed By: #### 7 600, 85173, 496 #### [facility] [place] [address] Home Service Technician: Arjun Ramos MD ALP [Catalytic activity/Vol] 143 U/L Normal 37-153 [facility] Comment on above: Performed By: #### 7 600, 81480, 496 #### [facility] [place] [address] Home Service Technician: Arjun Ramos MD ALT [Catalytic activity/Vol] 18 U/L Normal 6-29 [facility] Comment on above: Performed By: #### 7 600, 64320, 496 #### [facility] [place] [address] Home Service Technician: Arjun Ramos MD AST [Catalytic activity/Vol] 14 U/L Normal 10-35 [facility] Comment on above: Performed By: #### 7 600, 36359, 496 #### [facility] [address], [address] [place] [address] Home Service Technician: Arjun Ramos MD Bilirubin [Mass/Vol] 0.5 mg/dL Normal 0.2-1.2 [facility] Comment on above: Performed By: #### 7 600, 76800, 496 #### [facility] [place] [address] Home Service Technician: Arjun Ramos MD Calcium [Mass/Vol] 10.0 mg/dL Normal 8.6-10.4 [facility] Comment on above: Performed By: #### 7 600, 06950, 496 #### [facility] [place] [address] Home Service Technician: Arjun Ramos MD Chloride [Moles/Vol] 100 mmol/L Normal 98-110 [facility] Comment on above: Performed By: #### 7 600, 70327, 496 #### [facility] [place] [address] Home Service Technician: Arjun Ramos MD CO2 [Moles/Vol] 29 mmol/L Normal 20-32 [facility] Comment on above: Performed By: #### 7 600, 44510, 496 #### [facility] [place] [address] Home Service Technician: Arjun Ramos MD Creatinine [Mass/Vol] 0.86 mg/dL Normal 0.50-1.05 [facility] Comment on above: Result Comment: For patients >49 years of age, the reference limit for Creatinine is approximately 13% higher for people identified as -Fijian. Performed By: #### 7 600, 01881, 496 #### [facility] [place] [address] Home Service Technician: Arjun Ramos MD eGFR NON-AFR. BELIZEAN 78 mL/min/1.73m2 Normal > OR = 60 [facility] Comment on above: Performed By: #### 7 600, 08658, 496 #### [facility] [place] [address] Home Service Technician: Arjun Ramos MD GFR/1.73 sq M.predicted among blacks MDRD (S/P/Bld) [Vol rate/Area] 91 mL/min/{1.73_m2} Normal > OR = 60 [facility] Comment on above: Performed By: #### 7 600, 48998, 496 #### [facility] [place] [address] Home Service Technician: Arjun Ramos MD Globulin (S) [Mass/Vol] 2.4 g/dL Normal 1.9-3.7 [facility] Comment on above: Performed By: #### 7 600, 88788, 496 #### [facility] [place] [address] Home Service Technician: Arjun Ramos MD Glucose [Mass/Vol] 125 mg/dL Normal 65-139 [facility] Comment on above: Result Comment: Non-fasting reference interval For someone without known diabetes, a glucose value between 100 and 125 mg/dL is consistent with prediabetes and should be confirmed with a follow-up test. Performed By: #### 7 600, 09245, 496 #### [facility] [place] [address] Home Service Technician: Arjun Ramos MD Potassium [Moles/Vol] 3.6 mmol/L Normal 3.5-5.3 [facility] Comment on above: Performed By: #### 7 600, 80155, 496 #### [facility] [place] [address] Home Service Technician: Arjun Ramos MD Protein [Mass/Vol] 6.6 g/dL Normal 6.1-8.1 [facility] Comment on above: Performed By: #### 7 600, 05293, 496 #### [facility] [place] [address] Home Service Technician: Arjun Ramos MD Sodium [Moles/Vol] 139 mmol/L Normal 135-146 [facility] Comment on above: Performed By: #### 7 600, 94010, 496 #### [facility] [address], [address] [place] [address] Home Service Technician: Arjun Ramos MD Urea nitrogen [Mass/Vol] 4 mg/dL Low 7-25 [facility] Comment on above: Performed By: #### 7 600, 69942, 496 #### [facility] [address], [address] [place] [address] Home Service Technician: Arjun Ramos MD Urea nitrogen/Creatinin e [Mass ratio] 5 mg/mg Low 6-22 [facility] Comment on above: Performed By: #### 7 600, 02354, 496 #### [facility] [address], [address] [place] [address] Home Service Technician: Arjun Ramos MD HEMOGLOBIN A1con 02-22-2022 HEMOGLOBIN [...] diagnosis of diabetes in children. According to [place] [employer] Association (ADA) guidelines, hemoglobin A1c <7.0% represents optimal control in non- diabetic patients. Different metrics may apply to specific patient populations. Standards of Medical Care in Diabetes(ADA). Performed By: #### 7 600, 99930, 496 #### [facility] [address], [address] [place] [address] Home Service Technician: Arjun Ramos MD LIPID PANEL, STANDARDon Cholesterol [Mass/Vol] 187 mg/dL Normal <200 [facility] Comment on above: Order Comment: FASTI NG:NO FASTING: NO Performed By: #### 7 600, 84779, 496 #### [facility] [address], [address] [place] [address] Home Service Technician: Arjun Ramos MD Cholesterol in HDL [Mass/Vol] 43 mg/dL Low > OR = 50 [facility] Comment on above: Order Comment: FASTI NG:NO FASTING: NO Performed By: #### 7 600, 33711, 496 #### [facility] [address], [address] [place] [address] Home Service Technician: Arjun Ramos MD Cholesterol.total/ Cholesterol in HDL [Mass ratio] 4.3 {ratio} Normal <5.0 [facility] Comment on above: Order Comment: FASTI NG:NO FASTING: NO Performed By: #### 7 600, 30624, 496 #### [facility] [address], [address] [place] [address] Home Service Technician: Arjun Ramos MD LDL-CHOLESTEROL Normal [facility] [...] LDL-C. Lan MARTÍNEZ et al. KELLY. 2013;310(19): 8949-7790 (http://education.Citysearch.Dysonics/faq/SRD160) Performed By: #### 7 600, 97142, 496 #### [facility] [address], [address] [place] [address] Home Service Technician: Arjun Ramos MD NON HDL CHOLESTEROL 144 mg/dL (calc) High <130 [facility] Comment on above: Order Comment: FASTI NG:NO FASTING: NO Result Comment: For patients with diabetes plus 1 major ASCVD risk factor, treating to a non-HDL-C goal of <100 mg/dL (LDL-C of <70 mg/dL) is considered a therapeutic option. Performed By: #### 7 600, 94915, 496 #### [facility] [address], [address] [place] [address] Home Service Technician: Arjun Ramos MD Triglyceride [Mass/Vol] 425 mg/dL High <150 [facility] Comment on above: Order Comment: FASTI NG:NO FASTING: NO Result Comment: If a non-fasting specimen was collected, consider repeat triglyceride testing on a fasting specimen if clinically indicated. Heber et al. J. of Clin. Lipidol. 2015;9:129-169. Performed By: #### 7 600, 72836, 496 #### [facility] [address], [address] [place] [address] Home Service Technician: Arjun Ramos MD HEMOGLOBIN A1con 11-14-2021 HEMOGLOBIN [...] #### 7 600, 496 #### [facility] [address], [address] [place] [address] Home Service Technician: Arjun Ramos MD LIPID PANEL, STANDARDon 10-18 Cholesterol [Mass/Vol] 184 mg/dL Normal <200 [facility] Comment on above: Order Comment: FASTI NG:YES FASTING: YES Performed By: #### 7 600, 496 #### [facility] [address], [address] [place] [address] Home Service Technician: Arjun Ramos MD Cholesterol in HDL [Mass/Vol] 32 mg/dL Low > OR = 50 [facility] Comment on above: Order Comment: FASTI NG:YES FASTING: YES Performed By: #### 7 600, 496 #### [facility] [address], [address] [place] [address] Home Service Technician: Arjun Ramos MD Cholesterol.total/ Cholesterol in HDL [Mass ratio] 5.8 {ratio} High <5.0 [facility] Comment on above: Order Comment: FASTI NG:YES FASTING: YES Performed By: #### 7 600, 496 #### [facility] [address], [address] [place] [address] Home Service Technician: Arjun Ramos MD LDL-CHOLESTEROL Normal [facility] [...] LDL-C. Lan MARTÍNEZ et al. KELLY. 2013;310(19): 2154-3477 (http://education.Citysearch.Dysonics/faq/WKK813) Performed By: #### 7 600, 496 #### [facility] [address], [address] [place] [address] Home Service Technician: Arjun Ramos MD NON HDL CHOLESTEROL 152 mg/dL (calc) High <130 [facility] Comment on above: Order Comment: FASTI NG:YES FASTING: YES Result Comment: For patients with diabetes plus 1 major ASCVD risk factor, treating to a non-HDL-C goal of <100 mg/dL (LDL-C of <70 mg/dL) is considered a therapeutic option. Performed By: #### 7 600, 496 #### [facility] [address], [address] [place] [address] Home Service Technician: Arjun Ramos MD Triglyceride [Mass/Vol] 531 mg/dL [...] By: #### 7 600, 496 #### [facility] [address], [address] [place] [address] Home Service Technician: Arjun Ramos MD CNOVon 06-27-2021 CNOV Office Visit (OTOLCC ) ----- KETURAH HERRERA ([id number]) 1970 F Date Time Provider Department 06/27/21 2:00 PM [facility] During your visit today, we recorded the following information about you: Temperature Pulse 97.3 degrees 82/minute Ye Rodriguez PA-C 06/27/2021 4:56 PM Signed [facility] [place] [facility] NOTE CC: Keturahphyllis Herrera is a 50 year old female [...] bipolar - COPD (chronic obstructive pulmonary disease) ([facility]) - Depression - Ana Laura-Danlos disease - [...] mg ta (more content not included)... Normal [facility] CNOVon 04-19-2021 CNOV Office Visit (LOORRM ) ----- KETURAH HERRERA ([id number]) 1970 F Date Time Provider Department 04/19/21 [...] Comments: hallucinate METHADONE 02/28/2015 11 - Vomiting MOXIFLOXACIN-SOD.CHLORIDE (ISO) 02/28/2015 16 - Unknown PENICILLINS 02/28/2015 11 - Vomiting TOPAMAX (TOPIRAMATE) 02/28/2015 16 - Unknown TORADOL (KETOROLAC) 02/28/2015 14 - Other: See Comments Comments: Abdominal pain VERAPAMIL 02/28/2015 11 - Vomiting Date Reviewed: 04/19/2021 Reviewed by: Randi Farrell DO - Fully Assessed Reason for Visit: New [658381] Fracture [4131] Primary Visit Diagnosis:Other closed nondisplaced fracture of proximal end of left humerus, initial encounter [S42.295A] Other Visit Diagnosis:Right elbow pain [M25.521] Order(s):XR ELBOW SPECIAL VIEWS AP/LAT/OTHER RT [[id number]] Order #: [id number] FUTURE CONSULT TO WOOD MECHANIST [[id number]] Order #: [id number]: 1 FUTURE Prescriptions as of 04/19/2021 - [...] of att (more content not included)... Normal [facility] XR ELBOW 3V AP/LAT/OTHER RTo n 04-19-2021 [...] NO ACUTE OSSEOUS ABNORMALITY OTHER FINDINGS DESCRIBED Avionics Electrical Engineer: PSCB Transcribe Date/Time: Apr 19 2021 2:38P Dictated by : CAROL ROCHE MD This examination was interpreted and the report reviewed and electronically signed by: CAROL ROCHE MD on Apr 19 2021 2:39PM EST [id number] Normal [facility] XR SHLDR >/=3V AP/IGNACIA AP/OTH R RTon [...] No other significant abnormality. IMPRESSION: HEALING FRACTURE Avionics Electrical Engineer: PSCDahiana Transcribe Date/Time: Apr 19 2021 2:02P Dictated by : ACROL ROCHE MD This examination was interpreted and the report reviewed and electronically signed by: CAROL ROCHE MD on Apr 19 2021 2:02PM EST [id number] Normal [facility] Vital Signs Date Time Vital Sign Value Performing Clinician Facility 11-06-2023 09:32-0400 Diastolic blood pressure 71 mm[Hg] Cady Alva [facility] 11-06-2023 09:32-0400 Heart rate 79 /min Cady Alva [facility] 11-06-2023 09:32-0400 Mean blood pressure 84 mm[Hg] Cady Alva [facility] 11-06-2023 09:32-0400 Respiratory rate 15 /min Cady Alva [facility] 11-06-2023 09:32-0400 Systolic blood pressure 111 mm[Hg] Cady Alva [facility] 10-03-2023 16:13-0500 Body height 162.6 cm Robert Furlong DO Work Phone: [facility] [employer] 10-03-2023 16:13-0500 Body mass index (BMI) [Ratio] 30.47 kg/m2 Robert Furlong DO Work Phone: [facility] [employer] 10-03-2023 16:13-0500 Body temperature 97.3 [degF] Robert Furlong DO Work Phone: [facility] [employer] 10-03-2023 16:13-0500 Body weight 80.51 kg Robert Furlong DO Work Phone: [facility] [employer] 10-03-2023 16:13-0500 Diastolic blood pressure 60 mm[Hg] Robert Furlong DO Work Phone: [facility] [employer] 10-03-2023 16:13-0500 Heart rate 67 /min Robert Furlong DO Work Phone: [facility] [employer] 10-03-2023 16:13-0500 SaO2% (BldA) [Mass fraction] 98 % Robert Furlong DO Work Phone: [facility] [employer] 10-03-2023 16:13-0500 Systolic blood pressure 118 mm[Hg] Robert Furlong DO Work Phone: [facility] [place] [facility] 09-26-2023 15:11-0500 Body height 165.1 cm Martin Arango DPM Work Phone: [facility] 09-26-2023 15:11-0500 Body mass index (BMI) [Ratio] 29.29 kg/m2 Martin Arango DPM Work Phone: [facility] 09-26-2023 15:11-0500 Body weight 79.83 kg Martin Arango DPM Work Phone: [facility] 09-26-2023 15:11-0500 Diastolic blood pressure 80 mm[Hg] Martin Harsh DPM Work Phone: [facility] 09-26-2023 15:11-0500 Heart rate 79 /min Martin Harsh DPM Work Phone: [facility] 09-26-2023 15:11-0500 Systolic blood pressure 133 mm[Hg] Martin Arango DPM Work Phone: [facility] 09-17-2023 08:23-0500 Blood Pressure Location SHERI YUDY [facility] 09-17-2023 08:23-0500 Diastolic blood pressure 52 mm[Hg] SHERI YUDY [facility] 09-17-2023 08:23-0500 Heart rate 65 /min SHERI YUDY [facility] 09-17-2023 08:23-0500 Respiratory rate 16 /min SHERI YUDY [facility] 09-17-2023 08:23-0500 Systolic blood pressure 135 mm[Hg] SHERI YUDY [facility] 08-27-2023 10:30-0500 Body height 165.1 cm Valarie Javier Other [employer] [facility] [employer] Other 08-27-2023 10:30-0500 Body mass index (BMI) [Ratio] 29.28 kg/m2 Valarie Javier Other [employer] [facility] [employer] Other 08-27-2023 10:30-0500 Body temperature 97.2 [degF] Valarie Javier Other [employer] Other 08-27-2023 10:30-0500 Body weight 79.83 kg Valarie Javier Other [employer] Other 08-27-2023 10:30-0500 Diastolic blood pressure 80 mm[Hg] Valarie Javier Other [employer] Other 08-27-2023 10:30-0500 Respiratory rate 20 /min Valarie Javier Other [employer] Other 08-27-2023 10:30-0500 SaO2% (BldA) [Mass fraction] 93 % Valarie Javier Other [employer] Other 08-27-2023 10:30-0500 Systolic blood pressure 132 mm[Hg] Valarie Javier Other [employer] Other 07-25-2023 10:39-0500 Blood Pressure Location Elliott SOLIS [facility] 07-25-2023 10:39-0500 Diastolic blood pressure 82 mm[Hg] Elliott SOLIS [facility] 07-25-2023 10:39-0500 Heart rate 76 /min Elliott SOLIS [facility] 07-25-2023 10:39-0500 SaO2% (BldA) [Mass fraction] 97 % Elliott SOLIS [facility] 07-25-2023 10:39-0500 Systolic blood pressure 138 mm[Hg] Elliott SOLIS [facility] 07-05-2023 15:44-0500 Blood Pressure Location Cady CALIX [facility] 07-05-2023 15:44-0500 Diastolic blood pressure 83 mm[Hg] Cadyblaine KLEING [facility] 07-05-2023 15:44-0500 Heart rate 70 /min Cadyblaine KLEING [facility] 07-05-2023 15:44-0500 SaO2% (BldA) [Mass fraction] 99 % Cadyblaine KLEING [facility] 07-05-2023 15:44-0500 Systolic blood pressure 138 mm[Hg] Cadyblaine KLEING [facility] 05-20-2023 10:03-0400 Blood Pressure Location Cadyblaine KLEING [facility] 05-20-2023 10:03-0400 Diastolic blood pressure 80 mm[Hg] Cadyblaine KLEING [facility] 05-20-2023 10:03-0400 Heart rate 75 /min Cadyblaine CALIX [facility] 05-20-2023 10:03-0400 SaO2% (BldA) [Mass fraction] 98 % Cadyblaine KLEING [facility] 05-20-2023 10:03-0400 Systolic blood pressure 130 mm[Hg] Cadyblaine KLEING [facility] 02-26-2023 08:30-0400 Body height 165.1 cm Valarie Javier Other [employer] [facility] [employer] Other 02-26-2023 08:30-0400 Body mass index (BMI) [Ratio] 28.25 kg/m2 Valarie Javier Other [employer] Other 02-26-2023 08:30-0400 Body temperature 96.9 [degF] Valarie Javier Other [employer] Other 02-26-2023 08:30-0400 Body weight 77.02 kg Valarie Javier Other [employer] Other 02-26-2023 08:30-0400 Diastolic blood pressure 84 mm[Hg] Valarie Javier Other [employer] Other 02-26-2023 08:30-0400 Respiratory rate 20 /min Valarie Javier Other [employer] Other 02-26-2023 08:30-0400 SaO2% (BldA) [Mass fraction] Valarie Javier Other [facility] [employer] Other 02-26-2023 08:30-0400 Systolic blood pressure 138 mm[Hg] Valarie Javier Other [facility] [employer] Other 01-17-2023 10:04-0400 Diastolic blood pressure 76 mm[Hg] Poole SALAM [facility] 01-17-2023 10:04-0400 Heart rate 70 /min Poole SALAM [facility] 01-17-2023 10:04-0400 Mean blood pressure 100 mm[Hg] Poole SALAM [facility] 01-17-2023 10:04-0400 Respiratory rate 17 /min Poole SALAM [facility] 01-17-2023 10:04-0400 SaO2% (BldA) [Mass fraction] 99 % Poole SALAM [facility] 01-17-2023 10:04-0400 Systolic blood pressure 149 mm[Hg] Poole SALAM [facility] 01-17-2023 09:55-0400 Diastolic blood pressure 80 mm[Hg] Poole SALAM [facility] 01-17-2023 09:55-0400 Heart rate 74 /min Poole SALAM [facility] 01-17-2023 09:55-0400 Mean blood pressure 97 mm[Hg] Poole SALAM [facility] 01-17-2023 09:55-0400 Respiratory rate 15 /min Poole SALAM [facility] 01-17-2023 09:55-0400 SaO2% (BldA) [Mass fraction] 99 % Poole SALAM [facility] 01-17-2023 09:55-0400 Systolic blood pressure 132 mm[Hg] Poole SALAM [facility] 01-17-2023 09:50-0400 Diastolic blood pressure 79 mm[Hg] Poole SALAM [facility] 01-17-2023 09:50-0400 Heart rate 73 /min Poole SALAM [facility] 01-17-2023 09:50-0400 Mean blood pressure 94 mm[Hg] Poole SALAM [facility] 01-17-2023 09:50-0400 Respiratory rate 13 /min Poole SALAM [facility] 01-17-2023 09:50-0400 SaO2% (BldA) [Mass fraction] 98 % Poole SALAM [facility] 01-17-2023 09:50-0400 Systolic blood pressure 125 mm[Hg] Poole SALAM [facility] 01-17-2023 09:39-0400 Body temperature 98.24 [degF] Poole SALAM [facility] 01-17-2023 08:35-0400 Blood Pressure Location Zulema CRAMER [facility] 01-17-2023 08:35-0400 Body temperature 98.06 [degF] Poolevenu CRAMER [facility] 11-21-2022 12:41-0400 Heart rate 61 /min Martin Arango [facility] 11-21-2022 12:41-0400 SaO2% (BldA) [Mass fraction] 97 % Martin Arango [facility] 11-21-2022 12:41-0400 Diastolic blood pressure 64 mm[Hg] Martin Arango [facility] 11-21-2022 12:41-0400 Mean blood pressure 85 mm[Hg] Martin Arango [facility] 11-21-2022 12:41-0400 Systolic blood pressure 128 mm[Hg] Martin Arango [facility] 11-21-2022 12:41-0400 Body temperature 96.98 [degF] Martin Arango [facility] 11-21-2022 12:40-0400 Respiratory rate 16 /min Martin Arango [facility] 11-21-2022 11:09-0400 Heart rate 66 /min Martin Arango [facility] 11-21-2022 11:09-0400 SaO2% (BldA) [Mass fraction] 100 % Martin Arango [facility] 11-21-2022 11:09-0400 Diastolic blood pressure 68 mm[Hg] Martin Arango [facility] 11-21-2022 11:09-0400 Mean blood pressure 84 mm[Hg] Martin Arango [facility] 11-21-2022 11:09-0400 Systolic blood pressure 116 mm[Hg] Martin Arango [facility] 11-21-2022 11:09-0400 Body temperature 98.06 [degF] Martin Arango [facility] 11-21-2022 11:08-0400 Respiratory rate 14 /min Martin Arango [facility] 11-21-2022 10:55-0400 Body temperature 97.16 [degF] Martin Arango [facility] 11-21-2022 10:55-0400 Diastolic blood pressure 85 mm[Hg] Martin Arango [facility] 11-21-2022 10:55-0400 Heart rate 65 /min Martin Arango [facility] 11-21-2022 10:55-0400 Mean blood pressure 98 mm[Hg] Martin Arango [facility] 11-21-2022 10:55-0400 Respiratory rate 18 /min Martin Arango [facility] 11-21-2022 10:55-0400 SaO2% (BldA) [Mass fraction] 98 % Martin Arango [facility] 11-21-2022 10:55-0400 Systolic blood pressure 123 mm[Hg] Martin Arango [facility] 11-21-2022 10:45-0400 Mean blood pressure 84 mm[Hg] Martin Arango [facility] 11-21-2022 10:45-0400 Respiratory rate 15 /min Martin Arango [facility] 11-21-2022 10:30-0400 Mean blood pressure 73 mm[Hg] Martin Arango [facility] 11-21-2022 10:30-0400 Respiratory rate 13 /min Martin Arango [facility] 11-21-2022 10:15-0400 Respiratory rate 1 /min Martin Arango [facility] 11-21-2022 07:43-0400 Mean blood pressure 100 mm[Hg] Martin Arango [facility] 11-21-2022 07:43-0400 Heart rate 62 /min Martin Arango [facility] 10-30-2022 15:25-0400 Blood Pressure Location Elliott Solis [facility] 10-30-2022 15:25-0400 Diastolic blood pressure 80 mm[Hg] Elliott Solis [facility] 10-30-2022 15:25-0400 Heart rate 70 /min Elliott Solis [facility] 10-30-2022 15:25-0400 SaO2% (BldA) [Mass fraction] 95 % Elliott Solis [facility] 10-30-2022 15:25-0400 Systolic blood pressure 126 mm[Hg] Elliott Solis [facility] 10-29-2022 14:56-0400 Diastolic blood pressure 86 mm[Hg] Inessa Grajeda [facility] 10-29-2022 14:56-0400 Mean blood pressure 103 mm[Hg] Inessa Nicci [facility] 10-29-2022 14:56-0400 Systolic blood pressure 138 mm[Hg] Inessa Grajeda [facility] 10-29-2022 14:50-0400 Blood Pressure Location Inessa Grajeda [facility] 10-29-2022 14:50-0400 Body temperature 97.88 [degF] Inessa Grajeda [facility] 10-29-2022 14:50-0400 Diastolic blood pressure 86 mm[Hg] Inessa Grajeda [facility] 10-29-2022 14:50-0400 Heart rate 85 /min Inessa Grajeda [facility] 10-29-2022 14:50-0400 Systolic blood pressure 141 mm[Hg] Inessa Grajeda [facility] 10-20-2022 10:33-0500 Body temperature 95.9 [degF] Santos Landry [facility] 10-20-2022 10:33-0500 Diastolic blood pressure 73 mm[Hg] Santos Landry [facility] 10-20-2022 10:33-0500 Heart rate 62 /min Santos Landry [facility] 10-20-2022 10:33-0500 Respiratory rate 18 /min Santos Landry [facility] 10-20-2022 10:33-0500 SaO2% (BldA) [Mass fraction] 100 % Santos Landry [facility] 10-20-2022 10:33-0500 Systolic blood pressure 151 mm[Hg] Santos Landry [facility] 10-12-2022 13:06-0500 Body temperature 97.7 [degF] Santos Landry [facility] 10-12-2022 13:06-0500 Diastolic blood pressure 71 mm[Hg] Santos Landry [facility] 10-12-2022 13:06-0500 Heart rate 68 /min Santos Landry [facility] 10-12-2022 13:06-0500 Respiratory rate 18 /min Santos Frantz [facility] 10-12-2022 13:06-0500 SaO2% (BldA) [Mass fraction] 98 % Santos Frantz [facility] 10-12-2022 13:06-0500 Systolic blood pressure 126 mm[Hg] Santosaparna Landry [facility] 10-02-2022 12:31-0500 Blood Pressure Location Inessa Grajeda [facility] 10-02-2022 12:31-0500 Diastolic blood pressure 52 mm[Hg] Inessa Grajeda [facility] 10-02-2022 12:31-0500 Heart rate 56 /min Inessa Grajeda [facility] 10-02-2022 12:31-0500 SaO2% (BldA) [Mass fraction] 100 % Inessa Grajeda [facility] 10-02-2022 12:31-0500 Systolic blood pressure 136 mm[Hg] Inessa Grajeda [facility] 09-06-2022 10:09-0500 Blood Pressure Location Zulema CRAMER [facility] 09-06-2022 10:09-0500 Diastolic blood pressure 71 mm[Hg] Poole SALAM [facility] 09-06-2022 10:09-0500 Heart rate 70 /min Poole SALAM [facility] 09-06-2022 10:09-0500 Respiratory rate 22 /min Poole SALAM [facility] 09-06-2022 10:09-0500 Systolic blood pressure 145 mm[Hg] Poole SALAM [facility] 09-06-2022 10:05-0500 Blood Pressure Location Poole SALAM [facility] 09-06-2022 10:05-0500 Diastolic blood pressure 66 mm[Hg] Poole SALAM [facility] 09-06-2022 10:05-0500 Heart rate 66 /min Poole SALAM [facility] 09-06-2022 10:05-0500 Respiratory rate 20 /min Poole SALAM [facility] System 09-06-2022 10:05-0500 SaO2% (BldA) [Mass fraction] 100 % Poole SALAM [facility] 09-06-2022 10:05-0500 Systolic blood pressure 94 mm[Hg] Poole SALAM [facility] 09-06-2022 10:00-0500 Heart rate 59 /min Poole SALAM [facility] 09-06-2022 10:00-0500 Respiratory rate 17 /min Poole SALAM [facility] 09-06-2022 10:00-0500 Systolic blood pressure 90 mm[Hg] Poole SALAM [facility] 09-06-2022 09:55-0500 SaO2% (BldA) [Mass fraction] 100 % [facility] 09-06-2022 09:40-0500 Body temperature 96.62 [degF] [facility] 09-06-2022 07:35-0500 Body temperature 96.62 [degF] [facility] 07-05-2022 10:00-0500 Body height 165.1 cm Valarie Javier Other [employer] [facility] [employer] Other 07-05-2022 10:00-0500 Body mass index (BMI) [Ratio] 28.95 kg/m2 Valarie Javier Other [employer] Other 07-05-2022 10:00-0500 Body temperature 97 [degF] Valarie Javier Other [employer] Other 07-05-2022 10:00-0500 Body weight 78.93 kg Valarie Javier Other [employer] Other 07-05-2022 10:00-0500 Diastolic blood pressure 77 mm[Hg] Valarie Javier Other [employer] Other 07-05-2022 10:00-0500 Respiratory rate 20 /min Valarie Javier Other [employer] Other 07-05-2022 10:00-0500 SaO2% (BldA) [Mass fraction] Valarie Javier Other [employer] Other 07-05-2022 10:00-0500 Systolic blood pressure 137 mm[Hg] Valarie Herrera Other [facility] [employer] Other 05-15-2022 13:22-0400 Diastolic blood pressure 65 mm[Hg] Cadyblaine KLEING [facility] 05-15-2022 13:22-0400 Mean blood pressure 85 mm[Hg] Cady STANG [facility] 05-15-2022 13:22-0400 Systolic blood pressure 126 mm[Hg] Cady STANG [facility] 05-15-2022 13:08-0400 Blood Pressure Location Cadyblaine KLEING [facility] 05-15-2022 13:08-0400 Diastolic blood pressure 88 mm[Hg] Cady STANG [facility] 05-15-2022 13:08-0400 Heart rate 62 /min Cady STANG [facility] 05-15-2022 13:08-0400 Respiratory rate 18 /min Cady STANG [facility] 05-15-2022 13:08-0400 SaO2% (BldA) [Mass fraction] 100 % Cady STANG [facility] 05-15-2022 13:08-0400 Systolic blood pressure 140 mm[Hg] Cady STANG [facility] 03-20-2022 13:16-0400 Diastolic blood pressure 72 mm[Hg] Elliott Solis [facility] 03-20-2022 13:16-0400 Heart rate 73 /min Elliott Solis [facility] 03-20-2022 13:16-0400 Mean blood pressure 87 mm[Hg] Elliott Solis [facility] 03-20-2022 13:16-0400 Respiratory rate 18 /min Elliott Solis [facility] 03-20-2022 13:16-0400 Systolic blood pressure 118 mm[Hg] Elliott Solis [facility] 03-06-2022 10:27-0400 Blood Pressure Location Cady CALIX [facility] 03-06-2022 10:27-0400 Diastolic blood pressure 78 mm[Hg] Cady CALIX [facility] 03-06-2022 10:27-0400 Heart rate 68 /min Cady CALIX [facility] 03-06-2022 10:27-0400 Respiratory rate 18 /min Cady CALIX [facility] 03-06-2022 10:27-0400 SaO2% (BldA) [Mass fraction] 98 % Cady CALIX [facility] 03-06-2022 10:27-0400 Systolic blood pressure 137 mm[Hg] Cadyblaine CALIX [facility] 01-11-2022 15:06-0400 Diastolic blood pressure 83 mm[Hg] Poolevenu CURRYAM [facility] 01-11-2022 15:06-0400 Heart rate 61 /min Poole SALAM [facility] 01-11-2022 15:06-0400 Systolic blood pressure 136 mm[Hg] Poole SALAM [facility] 12-11-2021 12:00-0400 Blood Pressure Location Donaldo PEARSON [facility] 12-11-2021 12:00-0400 Diastolic blood pressure 75 mm[Hg] Donaldo PEARSON [facility] 12-11-2021 12:00-0400 Heart rate 78 /min Donaldo PEARSON [facility] 12-11-2021 12:00-0400 Systolic blood pressure 107 mm[Hg] Donaldo PEARSON [facility] Encounters Encounter Date Encounter Type Care Provider Facility Start: 11-21-2023 Refill Robert augustin DO [facility] Start: 11-21-2023 End: 11-21-2023 ambulatory MARTIN ARANGO Not Available Start: 11-20-2023 End: 11-20-2023 ambulatory NURIA SANCHEZ Not Available Start: 11-06-2023 End: 11-07-2023 ambulatory Nuria Sanchez [place] Start: 11-06-2023 End: 11-06-2023 Pain Management Cady Alva [facility] Start: 11-04-2023 Refill Robert Worthy ng DO Work Phone: [facility] Start: 11-01-2023 Orders Only Fiona Baxter Moiz COMBINE OPERATOR-SENIOR LOSS CONTROL SPECIALIST Work [facility]: [facility] Start: 10-31-2023 End: 10-31-2023 ambulatory MARTIN ARANGO Not Available Start: 10-30-2023 Refill Simi Petty DOCENT COORDINATOR [facility] Comment on above: Anxiety state; Type 2 diabetes mellitus without complication, without long-term current use of insulin [place] Type 2 diabetes mellitus with diabetic mononeuropathy, without long-term current use of insulin [place] Start: 10-24-2023 End: 10-24-2023 ambulatory MARTIN ARANGO Not Available Start: 10-17-2023 End: 10-17-2023 ambulatory MARTIN ARANGO Not Available Start: 10-03-2023 End: 10-03-2023 ambulatory ROBERT CARMENLAURIE [facility] Start: 10-03-2023 End: 10-03-2023 Office outpatient visit 15 minutes Robert Pamela Rivas DO Work Phone: [facility] Family Medicine Comment on above: Pre-op evaluation (P rimary Dx); Hallux valgus of right foot; Essential hypertension; Diabetic peripheral neuropathy [place] Start: 10-03-2023 End: 10-03-2023 Preprocedural examination done Robert Giron DO Work Phone: [facility] Work Phone: Start: 09-27-2023 Telephone encounter Nuria Sanchez MD Work Phone: [facility] Start: 09-26-2023 End: 09-26-2023 ambulatory MARTIN ARANGO Not Available Start: 09-26-2023 End: 09-26-2023 Office outpatient visit 25 minutes Martin Arango DPM Work Phone: [facility] Comment on above: Hav (hallux abducto valgus), right (Primary Dx); Plantar fasciitis; Diabetes 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 polyneuropathy, with long-term current use of insulin ([facility] Contracture of right ankle; Bone spur of right foot Start: 09-26-2023 Refill Robert augustin DO Work Phone: [facility] Medicine - Family Medicine Start: 09-20-2023 Refill Nuria moreira MD Work Phone: [facility] Comment on above: Chronic bilateral lo w back pain with bilateral sciatica; Diabetic peripheral neuropathy (CMS/HCC); Lumbar radiculopathy Start: 09-19-2023 End: 09-19-2023 ambulatory Valarie Javier Other [employer] Other Start: 09-19-2023 Telephone encounter Valarie Javier [facility] Start: 09-17-2023 End: 09-18-2023 ambulatory SHERI JIMENES Facility:[facility] Start: 09-17-2023 End: 09-17-2023 Patient encounter procedure SHERI JIMENES [facility] Start: 09-16-2023 End: 09-19-2023 ambulatory ROBERT GIRON [facility] Start: 09-08-2023 Refill Robert Pamela Worthy ng DO Work Phone: [facility] Start: 09-02-2023 Orders Only Robert Pamela Carmenradha ng DO Work Phone: [facility] Comment on above: Anxiety state Start: 08-28-2023 End: 08-28-2023 ambulatory NURIA SANCHEZ Not Available Start: 08-27-2023 End: 08-27-2023 ambulatory Valarie Javier Other [employer] Other Start: 08-27-2023 Office outpatient vi sit 25 minutes Valarie Javier [facility] Start: 08-23-2023 Orders Only Robert Pamela Carmenlo ng DO Work Phone: [facility] Comment on above: 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, sciatica laterality unspecified Start: 08-20-2023 End: 08-20-2023 ambulatory ANDRIA CARTER Not Available Start: 08-16-2023 Refill Robert Pamela Carmenlo ng DO Work Phone: [facility] Comment on above: Oral thrush Start: 08-09-2023 End: 08-09-2023 ambulatory FRENCH LEVINE Not Available Start: 08-08-2023 End: 08-08-2023 ambulatory MARTIN ARANGO Not Available Start: 08-06-2023 End: 08-06-2023 ambulatory ИВАН HARMAN Not Available Start: 08-01-2023 End: 08-01-2023 ambulatory ИВАН HARMAN Not Available Start: 07-25-2023 End: 07-26-2023 ambulatory XXXX NONE [place] [place] [place] Start: 07-25-2023 End: 07-25-2023 Patient encounter procedure Elliott SOLIS [facility] Start: 07-22-2023 End: 07-22-2023 ambulatory RITCHIEPERLA KIRBY Not Available Start: 07-18-2023 End: 07-18-2023 ambulatory ИВАН HARMAN Not Available Start: 07-08-2023 End: 07-08-2023 ambulatory ROSHAN HOLLOWAY Not Available Start: 07-05-2023 End: 07-06-2023 ambulatory Cady CALIX [place] [place] Start: 07-05-2023 End: 07-05-2023 Patient encounter procedure Cady CALIX [facility] Start: 07-04-2023 End: 07-04-2023 ambulatory MARTIN ARANGO Not Available Start: 06-24-2023 End: 06-25-2023 ambulatory NURIA SANCHEZ [facility] Start: 06-14-2023 End: 06-15-2023 ambulatory Cady CALIX [place] Start: 06-14-2023 End: 06-14-2023 Patient encounter procedure Cady CALIX [facility] Start: 05-22-2023 End: 05-23-2023 ambulatory Inessa Grajeda Facility:[facility] Start: 05-22-2023 End: 05-22-2023 Patient encounter procedure Inessa Grajeda [facility] Start: 05-20-2023 End: 05-21-2023 ambulatory Cady CALIX [place] Start: 05-20-2023 End: 05-20-2023 Patient encounter procedure Cady CALIX [facility] Start: 05-16-2023 End: 05-17-2023 ambulatory Elliott SOLIS [place] Start: 04-04-2023 End: 04-04-2023 ambulatory Valarie Javier Other [employer] Other Start: 04-04-2023 Telephone encounter Valarie Javier [facility] Start: 04-03-2023 End: 04-03-2023 ambulatory Valarie Javier Facility:[facility] Start: 04-03-2023 End: 04-03-2023 ambulatory DO Robert Furlong Work Phone: [facility] Work Phone: Start: 04-03-2023 End: 04-03-2023 Patient encounter procedure DO Robert Furlong Work Phone: [facility] [address] Work Phone: Start: 02-26-2023 End: 02-26-2023 ambulatory Valarie Javier Other [employer] Other Start: 02-26-2023 Office outpatient vi sit 25 minutes Vaalrie Javier [facility] Start: 01-30-2023 End: 01-31-2023 ambulatory SHERI JIMENES Facility:[facility] Start: 01-29-2023 End: 01-30-2023 ambulatory Inessa Grajeda Facility:[facility] Start: 01-17-2023 End: 01-18-2023 ambulatory Zulema CRAMER [place] Start: 01-17-2023 End: 01-17-2023 Patient encounter procedure Zulema CRAMER [facility] Start: 12-22-2022 End: 01-16-[address] DOCTOR GALLO Facility:[facility] Start: 12-21-2022 End: 12-22-[address] DOCTOR GALLO Facility:[facility] Start: 11-29-2022 End: 11-29-[address] ROBERT GIRON Facility:[facility] Start: 11-26-2022 End: 11-26-[address] ROBERT GIRON Facility:[facility] Start: 11-21-2022 End: 11-21-2022 Admission to same day surgery center Martin Arango [facility] Start: 10-30-2022 End: 10-30-2022 Patient encounter procedure Elliott Solis [facility] Start: 10-29-2022 End: 10-29-2022 Patient encounter procedure Inessa Grajeda [facility] Start: 10-20-2022 End: 10-20-2022 Emergency department patient visit Santos Landry [facility] Start: 10-12-2022 End: 10-12-2022 Emergency department patient visit Santos Landry [facility] Start: 10-02-2022 End: 10-02-2022 Patient encounter procedure Inessa Grajeda [facility] Start: 09-14-2022 End: 11-01-2022 Pre-admission assessment Zulema CRAMER [facility] Start: 09-10-2022 End: 09-11-[address] FREDERICK MAHARAJ . Facility:[facility] Start: 09-06-2022 End: 09-06-2022 Patient encounter procedure Zulema CRAMER [facility] Start: 09-04-2022 End: 09-04-2022 ambulatory Valarie Javier Other [employer] Other Start: 09-04-2022 Telephone encounter Valarie Javier [facility] Start: 08-10-2022 ambulatory ELIUD JAJA Facility :[facility] Start: 08-06-2022 End: 08-07-[address] FREDERICK MAHARAJ . Facility:[facility] Start: 07-05-2022 End: 07-05-2022 ambulatory Valarie Javier Other [employer] Other Start: 07-05-2022 Office outpatient vi sit 25 minutes Valarie Javier [facility] Start: 07-04-2022 End: 07-05-2022 ambulatory VALARIE JAVIER Facility:[facility] Start: 07-03-2022 End: 07-03-[address] RAULITO CHA . Facility:[facility] Start: 06-26-2022 End: 11-28-2022 Recurring Zuelma CRAMER [facility] Start: 06-08-2022 End: 06-09-[address] DOCTOR GALLO Facility:[facility] Start: 05-15-2022 End: 05-15-2022 Patient encounter procedure Cady CALIX [facility] Start: 05-09-2022 End: 09-09-2022 Recurring Zulema CRAMER [facility] Start: 05-09-2022 End: 06-19-2022 Pre-admission assessment Zulema CRAMER [facility] Start: 04-30-2022 End: 05-01-[address] ROBERT GIRON Facility:[facility] Start: 04-09-2022 End: 05-02-2022 Pre-admission assessment Donaldo PEARSON [facility] Start: 04-06-2022 End: 04-07-2022 ambulatory ELIUD JAJA Facility:[facility] Start: 04-01-2022 End: 04-01-2022 ambulatory JAMAR CAROLA . Facility:[facility] Start: 03-28-2022 End: 03-29-[address] DOCTOR GALLO Facility:[facility] Start: 03-20-2022 End: 03-20-2022 Patient encounter procedure Elliott Solis [facility] Start: 03-13-2022 End: 03-13-2022 ambulatory JAMAR SRIVASTAVA . Facility:[facility] Start: 03-06-2022 End: 09-07-2022 Pre-admission assessment Elliott Solis [facility] Start: 03-06-2022 End: 03-06-2022 Patient encounter procedure Cady CALIX [facility] Start: 02-08-2022 End: 06-20-2022 Recurring Zulema CRAMER [facility] Start: 02-08-2022 End: 02-09-2022 Pre-admission assessment Zulema CRAMER [facility] Start: 02-01-2022 End: 02-01-2022 Patient encounter procedure Zulema CRAMER [facility] Start: 01-11-2022 End: 05-02-2022 Recurring Zulema CRAMER [facility] Start: 01-11-2022 End: 01-11-2022 Patient encounter procedure Zulema CRAMER [facility] Start: 12-20-2021 End: 03-22-2022 Recurring Zulema CRAMER [facility] Start: 12-11-2021 End: 12-11-2021 Patient encounter procedure Donaldo PEARSON [facility] Start: 11-21-2021 End: 11-21-2021 Patient encounter procedure Inessa Grajeda [facility] Start: 10-12-2021 End: 01-30-2022 Recurring Martin Arango [facility] Procedures Date Procedure Procedure Detail Performing Clinician Start: 10-03-2023 Adult depression screening assessment Robert Furlong DO Work Phone: Start: 09-27-2023 Mammography Robert Furlong DO Work Phone: Start: 06-20-2023 Adult depression screening assessment Robert Furlong DO Work Phone: Start: 04-03-2023 CT of lungs DO Robert Debitosng Work Phone: Start: 01-21-2023 Colonoscopy Robert Furlong DO Work Phone: Start: 01-17-2023 Colonoscopy Zulema CRAMER Start: 11-21-2022 Hammer toe (disorder) Martin Arango Start: 11-21-2022 Metatarsal bone structure (body structure) Martin Arango Start: 10-22-2022 Microalbumin [Mass/volume] in Urine by Test strip Robert Nellalong DO Work Phone: Start: 09-10-2022 Mammography Robert Furlong DO Work Phone: Start: 03-29-2022 Esophagogastroduodenoscopy Zulema CRAMER [...] 05-07-2018 Decompression of tarsal tunnel Inessa Ron laneetz Comment on above: left Start: 02-15-2016 Right tarsal tunnel release Inessa Steinme tz Start: 08-17-2015 Left instep plantar fasciotomy [...] Inessa Downs tz Colonoscopy Inessa Grajeda Colonoscopy Poolevenu CURRYAM Cystopexy Inessa Grajeda Decompression of median nerve Inessa Grajeda Comment on above: x 2 Decompression of ulnar nerve Inessa Grajeda Comment on above: x 2 Esophagogastroduodenoscopy B eth Nicci Esophagogastroduodenoscopy M [employer] SALAM Comment on above: Antral erosions Excision [...] of fallopian tube B eth Nicci Lithotripsy Inessa Grajeda Downey's metatarsalgia (disorder) Inessa [...] Screening for malignant neoplasm of colon Colonoscopy [facility] Start: 10-03-2024 Adult BMI Screening Adult BMI Screening [facility] Start: 10-03-2024 Depression Screening Depression Screening [facility] Start: 10-03-2024 Tobacco Screening Tobacco Screening [facility] Start: 09-27-2024 Screening for malignant neoplasm of breast Mammogram [facility] Start: 08-05-2024 Adult BMI Screening Adult BMI Screening [facility] Start: 08-05-2024 Tobacco Screening Tobacco Screening [facility] Start: 07-10-2024 Adult BMI Follow Up Plan Adult BMI Follow Up Plan [facility] Start: 07-08-2024 Diabetic foot examination Diabetic Foot Exam [facility] Start: 06-20-2024 Depression Screening Depression Screening [facility] Start: 04-19-2024 Influenza vaccination Influenza Vaccine [facility] Start: 12-31-2023 ambulatory Ambulatory Facility:[facility] Start: 10-28-2023 End: 10-28-2023 Patient encounter procedure 10/28/2023 3:20 PM EDT Office Visit [facility] [address] [place] [address] Nuria Sanchez MD [address] [facility] [address] [place] [id number] [facility] Start: 10-23-2023 Urine screening for protein Urine Microalbumin [facility] Start: 10-17-2023 End: 10-17-2023 Patient encounter procedure [facility] Start: 10-09-2023 End: 10-09-2023 Patient encounter procedure 10/09/2023 8:30 AM EST Procedure Visit [facility] Martin Arango, SALLIE [address] [address] [facility] Start: 10-03-2023 End: 10-03-2023 Patient encounter procedure 10/03/2023 3:40 PM EST Office Visit [facility] [address] [place] [address] Robert Giron, DO [address], [facility] [place] [address] [facility] Start: 09-26-2023 End: 09-26-2023 Patient encounter procedure 09/26/2023 3:10 PM EST Office Visit [facility] [address] [facility] [address] [place] [id number] Martin Arango, SALLIE [address] [address] [facility] Start: 09-16-2023 End: 09-16-2023 ambulatory 09/16/2023 8:30 AM EST Monitor [facility] Monitor [address] [id number] [facility] Infant Monitor Start: 09-10-2023 Screening for malignant neoplasm of breast Mammogram [facility] Start: 2020 Administration of varicella zoster vaccine Zoster (Shingles) Vaccine (1 of 2) [facility] Start: 1989 DTaP,Tdap and Td Vaccines (1 - Tdap) DTaP,Tdap and Td Vaccines (1 - Tdap) [facility] Start: 1970 Glaucoma screening Diabetic Ophthalmology Exam [facility] Immunizations Immunization Date Immunization Notes Care Provider Zeinab yeung 06-24-2023 Covid-19,mrna, Lnp-s , Pf, 50mcg/0.5ml 12+ Robert Giron DO Work Phone: [facility] 06-24-2023 influenza virus vaccine, unspecified formulation SHERI JIMENES [facility] 04-15-2020 influenza virus vaccine, unspecified formulation Cady CALIX [facility] 06-02-2019 hepatitis A vaccine, adult dosage Cadyblaine CALIX [facility] 11-21-2018 hepatitis A vaccine, adult dosage Cadyblaine CALIX [facility] NEGATED: Highlighted row has not occurred!04-29-2023 influenza virus vaccine, unspecified formulation Cady CALIX [facility] NEGATED: Highlighted row has not occurred!10-29-2022 influenza virus vaccine, unspecified formulation Inessa Carmenmetz [facility] NEGATED: Highlighted row has not occurred!09-14-2022 influenza virus vaccine, unspecified formulation Inessa Carmenmetz [facility] NEGATED: Highlighted row has not occurred!05-09-2022 influenza virus vaccine, unspecified formulation Cady CALIX [facility] NEGATED: Highlighted row has not occurred!12-11-2021 influenza virus vaccine, unspecified formulation Donaldo PEARSON [facility] NEGATED: Highlighted row has not occurred!12-11-2021 SARS-CoV-2 (COVID-19) Ad26 vaccine, recombinant Donaldo PEARSON [facility] NEGATED: Highlighted row has not occurred!11-07-2021 influenza virus vaccine, unspecified formulation Inessa Grajeda [facility] NEGATED: Highlighted row has not occurred!09-04-2021 SARS-CoV-2 (COVID-19) Ad26 vaccine, recombinant Inessa Grajeda [facility] Payers Date Payer Category Payer Self-pay [id number] 2017 Medicaid [id number] 1970 Unknown [id number] 2.16.84 0.1.976968.3.579.2.593 1970 Unknown [id number] 2.16.84 0.1.591335.3.579.2.593 1970 Unknown [id number] 2.16.84 0.1.374501.3.579.2.593 1970 Unknown [id number] 2.16.84 0.1.173214.3.579.2.593 1970 Unknown [id number] 2.16.84 0.1.127621.3.579.2.593 1970 Unknown [id number] 2.16.84 0.1.804816.3.579.2.593 1970 Unknown [id number] 2.16.84 0.1.936266.3.579.2.593 1970 Unknown [id number] 2.16.84 0.1.912192.3.579.2.593 1970 Unknown [id number] 2.16.84 0.1.487765.3.579.2.593 1970 Unknown [id number] 2.16.84 0.1.925380.3.579.2.593 1970 Unknown [id number] 2.16.84 0.1.506437.3.579.2.593 1970 Unknown [id number] 2.16.84 0.1.512583.3.579.2.593 1970 Unknown [id number] 2.16.84 0.1.599895.3.579.2.593 1970 Unknown [id number] 2.16.84 0.1.140060.3.579.2.593 1970 Unknown [id number] 2.16.84 0.1.731307.3.579.2.593 1970 Unknown [id number] 2.16.8 40.1.470057.3.579.2.176 1970 Unknown [id number] 2.16.8 40.1.768615.3.579.2.1286 1970 Unknown [id number] 2.16.8 40.1.268048.3.579.2.1286 1970 Unknown [id number] 2.16.84 0.1.562524.3.579.2.1259 1970 Unknown [id number] 2.16.84 0.1.532106.3.579.2.1259 1970 Unknown [id number] 2.16.84 0.1.120113.3.579.2.1259 1970 Unknown [id number] 2.16.84 0.1.704653.3.579.2.1259 1970 Unknown [id number] 2.16.84 0.1.603260.3.579.2.1259 1970 Unknown [id number] 2.16.84 0.1.215272.3.579.2.1259 1970 Unknown [id number] 2.16.84 0.1.277886.3.579.2.1259 1970 Unknown [id number] 2.16.84 0.1.956540.3.579.2.1259 1970 Unknown [id number] 2.16.84 0.1.310157.3.579.2.1259 1970 Unknown [id number] 2.16.840 .1.353639.3.579.2.1259 1970 Unknown [id number] 2.16.840 .1.931105.3.579.2.9 1970 Unknown [id number] 2.16.840 .1.417842.3.579.2.1259 1970 Unknown [id number] 2.16.840 .1.646739.3.579.2.9 1970 Unknown [id number] 2.16.840 .1.172532.3.579.2.9 1970 Unknown [id number] 2.16.840 .1.604013.3.579.2.1259 1970 Unknown [id number] 2.16.840 .1.475629.3.579.2.1259 1970 Unknown [id number] 2.16.840 .1.015068.3.579.2.9 1970 Unknown [id number] 2.16.840 .1.932391.3.579.2.1259 1970 Unknown [id number] 2.16.8 40.1.886695.3.579.2.727 1970 Unknown [id number] 2.16.8 40.1.239822.3.579.2.727 1970 Unknown [id number] 2.16.8 40.1.236632.3.579.2.727 1970 Unknown [id number] 2.16.8 40.1.209782.3.579.2.727 1970 Unknown [id number] 2.16.8 40.1.592781.3.579.2.727 1970 Unknown [id number] 2.16.8 40.1.876811.3.579.2.727 1970 Unknown [id number] 2.16.8 40.1.073784.3.579.2.727 1970 Unknown [id number] 2.16.8 40.1.961877.3.579.2.727 1970 Unknown [id number] 2.16.8 40.1.922381.3.579.2.727 1970 Unknown [id number] 2.16.8 40.1.638147.3.579.2.727 1970 Unknown [id number] 2.16.8 40.1.445612.3.579.2.727 1970 Unknown [id number] 2.16.8 40.1.176961.3.579.2.727 1959 Medicaid [id number] 1959 Private Health Insurance [id number] 1959 Unknown [id number] 1959 Unknown [id number] Unknown [id number] 2.16.8 40.1.130313.3.579.2.531 Social History Date Type Detail Facility Start: 11-07-2021 End: 09-17-2023 Tobacco smoking status Heavy tobacco smoker (finding) [facility] Comment on above: 1 pack per day smoke r Start: 01-24-2023 End: 07-08-2023 Sex Assigned At [facility] Comment on above: 1 ppd smokes 1 ppd. Tobacco smoking status Never [facility] Start: 1970 Sex Assigned At Female F [facility] Tobacco smoking status No Smokin g Status Entered [facility] Start: 01-04-2022 End: 04-15-2023 Tobacco smoking status NHIS Smoker (finding) [facility] Start: 07-08-2023 Tobacco smoking stat [facility] Ex-smoker [facility] End: 04-15-2023 History of tobacco use Cigarette Smoker [facility] Start: 01-24-2023 End: 07-08-2023 Cigarettes smoked current (pack per day) - Reported 0.8 [facility] [place] [facility] Start: 06-20-2023 End: 07-08-2023 Tobacco use and exposure Smokeless tobacco non-user [facility] Start: 08-05-2023 End: 10-03-2023 Alcohol intake Ex-drinker (finding) [facility] Has the [employer], [employer], or water [employer] threatened to shut off services in your home in past 12Mo No [facility] Are you now , , , , never or living with a partner? [facility] How often to you hav e a drink containing alcohol? Monthly or less [facility] How many standard drinks containing alcohol do you have on a typical day? 3 or 4 [facility] How often do you hav e 6 or more drinks on 1 occasion? Never [facility] How hard is it for y ou to pay for the very basics like food, housing, medical care, and heating Not very hard [facility] Do you feel stress - tense, restless, nervous, or anxious, or unable to sleep at night because your mind is troubled all the time - these days [OSQ] To some extent [facility] Start: 07-08-2023 Tobacco Comment Smoke 1 PPD x 10 yea rs [facility] Start: 1970 Sex Assigned At Not on file P [facility] Start: 06-20-2023 Tobacco smoking stat [facility] Smokes tobacco daily [facility] History of tobacco use Passive smoker [facility] Start: 02-21-2023 Alcohol Comment caffeine 1-2 c ups per day [facility] Medical Equipment Procedure Code Equipment Code Equipment Origin al Text Equipment Identifier Dates Phacoemulsification of cataract with intraocular lens implantation Posterior-chamber intraocular lens, pseudophakic ()[id number] FDA Start: 12-14-2021 Phacoemulsification of cataract with intraocular lens implantation Posterior-chamber intraocular lens, pseudophakic ()[id number] FDA Start: 01-04-2022 HAMMERTOE REPAIR Brown DPM, [...] R FDA Start: 11-21-2022 HAMMERTOE REPAIR Brown DPNnamdi, Martin A 11/21/22 Non Biological Foot R FDA Start: 11-21-2022 HAMMERTOE REPAIR Harsh DPNnamdi, Martin A 11/21/22 Non Biological Foot R FDA Start: 11-21-2022 HAMMERTOE REPAIR Harsh DPNnamdi, Martin A 11/21/22 Non Biological Foot R FDA Start: 11-21-2022 HAMMERTOE REPAIR Harsh DPNnamdi, Martin A 11/21/22 Non Biological Foot R FDA Start: 11-21-2022 HAMMERTOE REPAIR Harsh DPNnamdi, Martin A 11/21/22 Non Biological Foot R FDA Start: 11-21-2022 Functional Status Date Assessment Result Facility 11-06-2023 Functional Status N/A [facility] 09-17-2023 Functional Status N/A [facility] 07-25-2023 Functional Status No [facility] 07-05-2023 Functional Status No [facility] 05-20-2023 Functional Status No [facility] 01-17-2023 Functional Status N/A [facility] 10-30-2022 Functional Status No [facility] 10-29-2022 Functional Status N/A [facility] 10-20-2022 Functional Status N/A [facility] 10-12-2022 Functional Status N/A [facility] 10-02-2022 Functional Status N/A [facility] 09-06-2022 Functional Status N/A [facility] 05-15-2022 Functional Status No [facility] 03-06-2022 Functional Status N/A [facility] Clinical Notes 04-19-2021 to 11-06-2023 Note Date & Type Note Facility 11-06-2023 Evaluation + Plan note Extrac emeterio from: Title:Pain Managment H&P new patient Author:Cady Manriquez PA-C Date:11/06/23 Impression and Plan Patient is a 53-year-old female with a past medical history significant for neck pain, cervical neuritis, lumbar stenosis, lumbar neuritis and fibromyalgia. She has a multitude of medication allergies. She states that she has struggled with pain since she was 16 years old. We had a long question what her fibromyalgia diagnosis and medication options. At this time, I would like to discuss her case in regards to her fibromyalgia with Dr. Eid. In regards to her lumbar stenosis and lumbar neuritis we reviewed her MRI. She has trialed and failed all reasonable conservative treatments including previous physical therapy that made her pain worse. This affects her ambulatory status. This affects her quality of life. Based on her MRI findings, her pain pattern, and her failure to improve with conservative treatments I recommended L4-5 epidural steroid injection under fluoroscopy. Procedure was discussed. Risk and benefits were discussed. Patient is agreeable. She will follow-up 2 weeks after the injection for reevaluation For her neck pain with cervical neuritis I feel that her mobility is significantly limited because of all the pain that she is experiencing and I am not sure that conservative treatments would be of benefit to her. I would recommend a cervical x-ray and MRI scan for treatment options. Patient will follow-up as above-mentioned. TU score: 64% Future Appointments Appointment Date:12/31/2023 01:00:00 PM Scheduled Provider:SHERI JIMENES PA-C Location:[facility] Appointment Type:URO Office Visit Future Scheduled Tests Laboratory* Pancreatic Elastase, Fecal 01/29/23 * Fecal WBC Lactoferrin 01/29/23 * Giardia lamblia, Direct Detection EIA 01/29/23 * O & P Exam, Routine 01/29/23 * Clostridium Difficile PCR 01/29/23 * Enteric Panel by PCR 01/29/23 * CBC w/ Auto Diff 12/25/22 * Comprehensive Metabolic Panel 12/25/22 Radiology* Echo Transthoracic Complete 05/20/23 [facility]03-15-2024 History of Present illness Narrative* SUN Humphries - 11/01/2023 12:30 PM EDT The OARRS/MAPPS database was reviewed today and found to be appropriate. No indication of medication diversion, or non compliance. SUN Humphries 11/01/23 1231 documented in this encounterUniversity [facility]als [facility]02-15-[facility] History of Present illness Narrative* Robert Giron, DO - 10/03/2023 3:40 PM EST Subjective Patient ID: Keturah Herrera is a 53 y.o. female. Earline presents today for preop clearance for an upcoming bunion surgery. She had preoperative testing done but I have not seen the results yet. She can do 4 Mets of activity like climbing a flight ofstairs and doing housework without chest pain or shortness a breath. She used to take oxygen but has now stopped it. Her breathing is improved. She has pain from her bunion and it is affecting her quality of life. She quit smoking about 6 months ago and has maintain smoking cessation. She has not had any recent illness. She does not have a sore throat, fever cough or diarrhea. She is a diabetic and her last A1c was 6.5%. She saw her upholsterer outside who medically cleared her. She had a heart cathete rization in 2019 which showed normal coronary arteries. The following portions of the patient's history were reviewed and updated as appropriate: allergies, current medications, past family history, past medical history, past social history, past surgicalhistory, problem list, and medication reconciliation was completed including current medication andpost discharge medication. Review of Systems Constitutional: Negative. HENT: Negative. Respiratory: Negative. Cardiovascular: Negative. Genitourinary: Negative. Musculoskeletal: Positive for arthralgias and back pain. Neurological: Negative. Psychiatric/Behavioral: The patient is nervous/anxious. Objective Physical Exam Constitutional: General: She is not in acute distress. Appearance: She is obese. She is not ill-appearing. HENT: Head: Normocephalic. Right Ear: Tympanic membrane, ear canal and external ear normal. Left Ear: Tympanic membrane, ear canal and external ear normal. Nose: Nose normal. Mouth/Throat: Lips: [place]. Mouth: Mucous membranes are moist. Pharynx: Oropharynx is clear. Eyes: General: No scleral icterus. Extraocular Movements: Extraocular movements intact. Conjunctiva/sclera: Conjunctivae normal. Cardiovascular: Rate and Rhythm: Normal rate and regular rhythm. Heart sounds: Normal heart sounds. No murmur heard. Pulmonary: Effort: Pulmonary effort is normal. No respiratory distress. Breath sounds: Normal breath sounds. No wheezing, rhonchi or rales. Abdominal: General: Bowel sounds are normal. Palpations: Abdomen is soft. Tenderness: There is no abdominal tenderness. Musculoskeletal: Cervical back: Neck supple. Lymphadenopathy: Cervical: No cervical adenopathy. Skin: General: Skin is warm and dry. Neurological: General: No focal deficit present. Mental Status: She is alert and oriented to person, place, and time. Psychiatric: Mood and Affect: Mood normal. Behavior: Behavior normal. Thought Content: Thought content normal. Judgment: Judgment normal. Assessment/Plan Keturah was seen today for pre-op exam. Diagnoses and all orders for this visit: Pre-op evaluation We did not initially have her labs her EKG but those have since been sent for my review. She does have diabetes and she did have a nonspecific T-wave abnormality which is new compared to a previous EKG. However, she can do 4 Mets of activity without angina equivalents. She has moderate functional capacity and a low risk surgical procedure. No further cardiac workup is indicated. She is medically cleared for surgery. Hallux valgus of right foot Follow-up with signal supervisor for surgery. Essential hypertension Blood pressure at goal. Take medications with a sip of water in the morning. Diabetic peripheral neuropathy (CMS-HCC) At goal. documented in this encounterUniversity [facility]als [facility]02-09-2024 Miscellaneous Notes* Telephone Encounter - Anjelica Rutledge - 09/27/2023 8:08 AM EST Patient left message requesting if she can get refill of Tramadol. Please advise. [phone] documented in this encounterGeneral Leonard Wood [facility] [id number] Telephone encounter Note* Telephone Encounter - Anjelica Rutledge - 09/27/2023 8:08 AM EST Patient left message requesting if she can get refill of Tramadol. Please advise. [phone] [facility] [id number] History of Present illness Narrative* Martin Arango, MERLEM - 09/26/2023 3:10 PM EST Patient: Keturah Herrera : 1970 PCP: Robert Giron MD SUBJECTIVE This is a 53 y.o. female today for follow-up of right foot plantar fasciitis as has had prior surgery in the past but had multiple injections in the past as well and had recurrence. Patient states pain with 1st steps in the morning and has had present for the past 5 months. She also has complaints of pain to the dorsum active right foot as well as her right HAV deformity has painful ambulation shoe gear as tried wider shoes with minimal improvement and does have orthotics in the past but has since lost them. She also relates painful spur to the top of her right foot has been present for the past year. She states increased pain with weight-bearing and has tried wider shoes and accommodative s hoe gear with negative improvement and presents today for possible treatment options and requests surgery at this time as all other conservative measures have failed. Patient be scheduled for right Chester bunionectomy with revisional right plantar fasciotomy and right midfoot exostectomy Allergies: Allergies Allergen Reactions Codeine Hives and Rash Other Reaction(s): Other, Unknown Other Hives Other Reaction(s): other Atomoxetine Hcl Palpitations Other Reaction(s): GI Disturbance, Other: See Comments palpitations Bupropion Palpitations Other Reaction(s): GI Disturbance, other, Other: See Comments palpitations Doxycycline Palpitations Other Reaction(s): GI Disturbance, Other, Other: See Comments, Unknown palpitations Gabapentin Other Reaction(s): Unknown Oxcarbazepine GI intolerance, Hives and Palpitations palpitations Ziprasidone Hcl Hives and Palpitations palpitations Amitriptyline Other Reaction(s): Abnormal Behavior, Mental Status Change, other, Vomiting hallucinate [place] Saline Nasal Gel [Aloe-Sodium Chloride] Facial numbness/tongue numbness Dexamethasone Other Reaction(s): Hot flashes, other, Unknown Causes whole body to burn (dexamethasone) Duloxetine Duloxetine Hcl Other Reaction(s): Unknown Eicosapentaenoic Acid Fish-Derived Products Fluticasone Other Reaction(s): other, Unknown Ketorolac Other Reaction(s): Other: See Comments Other reaction(s): Other: See Comments Abdominal pain Abdominal pain Ketorolac Tromethamine Hives Severe stomach cramping Meloxicam Other Reaction(s): Unknown Methocarbamol Other Reaction(s): Other (See Comments), Unknown Milnacipran Hives Moxifloxacin Hcl In Nacl Paroxetine Hives Penicillins Hives Other Reaction(s): GI Disturbance, Other (See Comments), Unknown, Vomiting, Vomiting, Vomiting Other Reaction(s): other Ropinirole Other Reaction(s): Altered mental status Sulfamethoxazole Other Reaction(s): Other (See Comments), Unknown Sulfamethoxazole-Trimethoprim Other Reaction(s): Vomiting Topiramate GI intolerance Valproic Acid Other Reaction(s): Alopecia, Unknown Verapamil GI intolerance Amoxicillin-Pot Clavulanate Nausea And Vomiting Other Reaction(s): GI Disturbance, Unknown, Vomiting Atomoxetine Palpitations Other Reaction(s): Other (See Comments), Unknown (atomoxetine) Fluticasone-Salmeterol Itching, Palpitations and Rash Other Reaction(s): Unknown Ibuprofen Nausea And Vomiting and Rash Other Reaction(s): GI Disturbance, Unknown Methadone Nausea And Vomiting Other Reaction(s): GI Disturbance, other, Vomiting, Vomiting Other reaction(s): Vomiting Moxifloxacin Nausea Only and Rash Other Reaction(s): Unknown Nitrofurantoin Hives and Rash Pregabalin Palpitations Other Reaction(s): Mental Status Change, other, Unknown hallucinate Shellfish Allergy Rash Wound Dressing Adhesive Rash Other Reaction(s): other Ziprasidone Palpitations Other Reaction(s): other, Unknown Past Medical History: Past Medical History: Diagnosis Date Asthma ([facility]) Bipolar disorder ([facility]) Bunion COPD (chronic obstructive pulmonary disease) ([facility]) Depression (CMS/HCC) Diabetes (CMS/HCC) Difficulty walking Fallen arches Fibromyalgia Hammer toe Kidney stones Migraine (CMS/HCC) Mitral valve prolapse Downey's neuroma Onychomycosis Osteoarthritis Oxygen dependent Plantar fasciitis Tinea pedis Medications: Current Outpatient Medications: Ajovy 225 MG/1.5ML auto-injector, INJECT 1.5ML SUBCUTANEOUSLY EVERY 30 DAYS, Disp: , Rfl: albuterol (2.5 MG/3ML) 0.083% nebulizer solution, Take 2.5 mg by nebulization every 6 (six) hours.,Disp: , Rfl: alendronate (Fosamax) 70 MG tablet, TAKE ONE TABLET BY MOUTH ONCE WEEKLY 30 MINUTES BEFORE THE FIRST FOOD, BEVERAGE, OR MEDICINE OF THE DAY WITH PLAIN WATER, Disp: 5 tablet, Rfl: 11 ALPRAZolam (Xanax) 1 MG tablet, Take 1 mg by mouth as needed at bedtime for sleep., Disp: , Rfl: ARIPiprazole (Abilify) 20 MG tablet, Take 15 mg by mouth in the morning., Disp: , Rfl: atorvastatin (Lipitor) 80 MG tablet, Take 80 mg by mouth in the morning., Disp: , Rfl: calcium carbonate 1500 (600 Ca) MG tablet, Take 1,500 mg by mouth in the morning and 1,500 mg before bedtime., Disp: , Rfl: carvedilol (Coreg) 25 MG tablet, Take 25 mg by mouth in the morning and 25 mg before bedtime., Disp: , Rfl: cetirizine (ZyrTEC) 10 MG tablet, Take 10 mg by mouth in the morning., Disp: , Rfl: clomiPRAMINE (Anafranil) 50 MG capsule, Take 50 mg by mouth 1 (one) time each day at the same time., Disp: , Rfl: Continuous Blood Gluc Crude Unit Operator (Dexcom G6 clinical coordinator) device, 1 UNIT YEARLY, Disp: , Rfl: Continuous Blood Gluc Sensor (Dexcom G6 Sensor) [facility], USE 1 UNIT DIRECTED AND CHANGE EVERY 10 DAYS, Disp: , Rfl: ergocalciferol (Vitamin D2) 1.25 MG (72520 UT) capsule, Take 1 capsule by mouth 1 (one) time per week., Disp: , Rfl: furosemide (Lasix) 20 MG tablet, Take 20 mg by mouth in the morning., Disp: , Rfl: hydrOXYzine HCl (Atarax) 10 MG tablet, Take 1 tablet (10 mg) by mouth every 12 (twelve) hours if needed for itching, Disp: 60 tablet, Rfl: 3 lidocaine (Lidoderm) 5 % patch, Apply 2 patches over 12 hours topically in the morning. Remove & discard patch within 12 hours or as directed by ., Disp: 60 patch, Rfl: 11 loperamide (Imodium) 2 MG capsule, TAKE 2 CAPSULES BY MOUTH AFTER 1ST LOOSE STOOL AND 1 CAPSULE AFTER EACH NEXT BOWEL MOVEMENT; DO NOT EXCEED 16MG (8 CAPSULES) IN 24 HOURS, Disp: , Rfl: meclizine (Antivert) 25 MG tablet, Take 25 mg by mouth 3 (three) times a day as needed., Disp: , Rfl: metFORMIN (Glucophage) 500 MG tablet, Take 500 mg by mouth in the morning. Take with meals., Disp: , Rfl: montelukast (Singulair) 10 MG tablet, Take 10 mg by mouth in the evening., Disp: , Rfl: nabumetone (Relafen) 750 MG tablet, TAKE ONE TABLET BY MOUTH TWICE A DAY ( IN THE MORNING AND BEFORE BEDTIME ), Disp: , Rfl: nortriptyline (Pamelor) 25 MG capsule, Take 1 capsule 3 times a day by oral route., Disp: , Rfl: nystatin (Mycostatin) 951213 UNIT/ML suspension, TAKE 5ML FOUR TIMES A DAY IN AM, NOON, EVENING, AND AT BEDTIME FOR 7 DAYS, Disp: , Rfl: nystatin-triamcinolone (Mycolog II) cream, APPLY 1 APPLICATION TOPICALLY IN THE MORNING AND 1 APPLICATION AT NOON AND 1 APPLICATION IN THE EVENING AND 1 APPLICATION BEFORE BEDTIME., Disp: , Rfl: omeprazole (PriLOSEC) [address] capsule, Take 1 capsule every day by oral route., Disp: , Rfl: ondansetron (Zofran) 4 MG tablet, TAKE 1 TABLET BY MOUTH EVERY 12 HOURS FOR 10 DAYS NEEDED FOR NAUSEA AND VOMITING, Disp: , Rfl: Thiamine Mononitrate 100 MG tablet, Take 1 tablet by mouth in the morning., Disp: , Rfl: tiZANidine (Zanaflex) 4 MG tablet, Take 4 mg by mouth every 6 (six) hours if needed for muscle spasms, Disp: , Rfl: traMADol (Ultram) 50 MG tablet, Take 1 tablet (50 mg) by mouth 3 (three) times a day as needed for severe pain for up to 7 days, Disp: 21 tablet, Rfl: 0 Ventolin HFA 108 (90 Base) MCG/ACT inhaler, Inhale 1 puff in the morning and 1 puff in the evening and 1 puff before bedtime., Disp: , Rfl: ROS: General: denies fever, chills, fatigue, malaise GI: denies abdominal pain or ulcerations with anti-inflammatory medication Cardio: Denies palpitations, irregular rhythm , chest pain or shortness of breath with positive history of tachycardia seeing upholsterer outside for this Pulmonary: Positive history of shortness of breath secondary to COPD Musculoskeletal: Positive herniated disc disease with knee arthritis OBJECTIVE LE EXAM: Derm: Skin intact to right foot with negative erythema, negative drainage, minimal edema with negative clinical signs of infection. Bony prominence and exostosis noted to the 1st metatarsal cuneiform joint right . Rubor to dorsal medial eminence of the right 1st metatarsal Small scar noted the plantar instep region of the right foot Elongated thick yellow crumbly nails digits 1 through 10 Vascular: Palpable pedal pulses to bilateral feet Neuro: Gross sensation intact to right and left Musculoskeletal: Positive pain on palpation to dorsal medial eminence of the right 1st metatarsal Positive pain on palpation to the right medial calcaneal tubercle and area of plantar fascia Positive pain on palpation to the dorsal midfoot exostosis of right foot Ortho: Ankle range of motion less than 10 degrees of dorsiflexion at right ankle joint. HAV deformity that is reducible right foot Verbal order today for x-rays be taken by staff. AP/Oblique/Lateral 3 view radiographs today of the right foot demonstrated the following: Notable HAV deformity with intermetatarsal angle of 12 degrees with screw fixation present the 2nd metatarsalneck region as well as degenerative changes to the midfoot ASSESSMENT 1. Hav (hallux abducto valgus), right 2. Plantar fasciitis 3. Diabetes 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 polyneuropathy, with long-term current use of insulin ([facility]) 4. Contracture of right ankle 5. Bone spur of right foot PLAN Patient given prescription for pain medication to be taken postoperatively. Decision for surgery today and patient medically cleared from a podiatric standpoint for surgery and to proceed with surgery. Pt to have pre op H/P per PCP for medical clearance for surgery and will be reviewed along with labs prior to surgery. Pt scheduled for right midfoot exostectomy with right HAV repair with screw fixation and Chester bunionectomy and right plantar fasciotomy. Discussed with the patient the nature of condition and operative vs nonoperative care. The surgicalplans, risks, alternatives, benefits, post op complications and internet application developer expectations were discussed including but not limited to: infection,bone infection,wound dehiscence hardware failure and irritation,wound dehiscence,delay union/mal union/non union of bone. RSDS,neuroma,duty limitations,DVT/PE, [place],nerve damage, scar, loss of sensation, swelling. Pt understands the proposed sx in detail and has agreed with proposed surgery. No guarantees were given or implied. Pt willingly consents to procedure and to have surgical procedure. Pt also understands risks including COVID-19 current risk in a surgical setting. Pt is a low acceptable risk for outpatient surgery from a podiatric standpoint with an ASA of a 3. Martin Arango DPM, FACFAS September 26, 2023 H&P up to date and current (date) documented in this encounterGeneral Leonard Wood Army Community [id number] Hospital Discharge instructions Patient Education 09/17/2023 08:52:34 Hematuria, Adult Hematuria, Adult Hematuria is blood in the urine. Blood may be visible in the urine, or it may be identified with a test. This condition can be caused by infections of the bladder, urethra, kidney, or prostate. Otherpossible causes include: Kidney stones. Cancer of the [...] blood in your urine, even if it ispainless or the blood stops without treatment. Blood in the urine, when it happens and then stops and then happens again, can be a symptom of a very serious condition, including cancer. There is no pain in the initial stages of many urinary cancers. Follow these instructions at home: Medicines Take hfjy-zzo-uognolt and prescription medicines only as told by your health care provider. If you were prescribed an antibiotic medicine, take it as told by your health care provider. Do notstop taking the antibiotic even if you start to feel better. Eating and drinking Drink enough fluid to keep your urine pale yellow. It is recommended that you drink 3 4 quarts (2.83.8 L) a day. If you have been diagnosed with an infection, drinking cranberry juice in addition tolarge amounts of water is recommended. Avoid caffeine, [...] about any blood in your urine, even ifit is painless or the blood stops without treatment. Take mkgh-rkj-rhjvquh and prescription medicines only as told by your health care provider. Drink enough fluid to keep your urine pale yellow. This information is not intended to replace advice given to you by your health care provider. Make sure you discuss any questions you have with your health care provider. Document Revised: 04/05/2021 Document Reviewed: 04/05/2021 [employer] Patient Education 2022 [employer]. Follow Up Care 06/13/2023 09:13:04 With:YUDY NORRIS, SHERI E, URL Address: [address] [place] [address] [phone] When: Unknown Comments:3 mos (restart med) [facility] Evaluation note* Encounter Date Diagnosis Assessment Notes Treatment Notes Treatment Clinical Notes Aug, Chronic obstructive pulmonary disease, unspecified (ICD-10 - J44.9) Aug, Tobacco abuse (ICD-1 0 - Z72.0) Stop smoking. Chest CT in 03/2023 showed emphysema, no nodules. Next LDCT screening will be scheduled for 2023. Aug, Diastolic dysfunctio n (ICD-10 - I51.9) Aug, Nicotine dependence, cigarettes, uncomplicated (ICD-10 - F17.210) [employer] Other 12-07-2023 NotePROCEDURE: CARDIAC EVENT MONITOR 14 [...] suggested. READ BY: Josette Traore Dictated: 07/23/2023 [id number] Transcribed: 07/23/2023 cc:DELORES Pryor-[facility] [place]Comment on above:Result Comment: Electronically Signed By: Johnie WALSH, Yandel Mckinnon\.br\Date and Time Signed: 07/25/23 08:27 [id number] Evaluation note* Encounter Date Diagnosis Assessment Notes [...] Nicotine dependence, cigarettes, uncomplicated (ICD-10 - F17.210) [employer] Other 06-05-2023 Note [id number]:127[facility] 01-17-2023 Hospital Discharge instructions Patient Education [...] worse throughout the day. 01/17/2023 09:45:38 Hemorrhoids, Tbar-yw-Axgh Hemorrhoids Hemorrhoids are swollen veins that may [...] 3 times a day. General instructions Take adtt-vzu-qiuhczk and prescription medicines only as told by [...] provider. Document Revised: 02/14/2022 Document Reviewed: 02/14/2022 [employer] Patient Education 2022 [employer]. 01/17/2023 09:45:31 Colon Polyps Colon Polyps Colon [...] hard liquor (44 mL). General instructions Take rseu-kkw-jikayab and prescription medicines only as told by [...] provider. Document Revised: 11/23/2020 Document Reviewed: 11/23/2020 [employer] Patient Education 2022 [employer]. Follow Up Care 09/14/2022 14:04:03 With:BELA WALSH, DHAVAL Poole, [facility] Address: [address] [place] [address]. [address] [place] [address] When: Unknown Comments:Office will call to schedule follow up appointment [facility]04-05-2023 Evaluation + Plan noteExtracted from: Title:Anesthesia Pre-Op Note - LILLY Author:Brody Raza DO Date:11/21/22 Plan [place] Society of Anesthesiologists#(ASA) physical status classification: Class III. Anesthetic Preoperative Plan Anesthesia: General. . Anesthetic plan, risks, benefits, and alternatives discussed with the patient and/or family. Risks discussed: nausea, vomiting, headache, sore throat, aspiration, airway. Patient verbalized understanding. Informed consent was given. Consent was signed by the patient. Future Appointments Appointment Date:12/10/2022 02:40:00 PM Scheduled Provider:Inessa Grajeda CNP [place]ment Type[facility] Follow Up Appointment Date:01/17/2023 09:50:00 AM Scheduled Provider: Location:[facility] Appointment Type:Surgery FT Appointment Date:01/30/2023 01:20:00 PM Scheduled Provider:SHERI JIMENES PA-C [place] [place] Appointment Type:URO Office Visit Future Scheduled Tests Laboratory* Clostridium difficile by PCR 05/09/22 * CBC w/ Auto Diff 05/09/22 * Comprehensive Metabolic Panel 05/09/22 [facility]04-05-2023 Hospital Discharge instructions Patient Education 11/21/2022 11:26:16 Foot Cryocuff Patient Instructions - FT (CUSTOM) 11/21/2022 11:26:16 Post Op Patient Instructions - FT (CUSTOM) 11/21/2022 08:48:42 Harsh - Post Operative Instructions (Revised 07/29/19) (Custom) ([id number]) (Custom) [place], [place] Martin Arango DPM, FACFAS POST OPERATIVE [...] feel free to call the doctor at: [phone] or [phone] Arango paged. Patient signatureDate Dr.Nicholas Harsh DPM, FACFAS Date Revised: 09-26 [facility]03-13-2023 Hospital Discharge instructions Patient Education 10/29/2022 14:43:33 [...] water added (diluted fruit juice). Eat bland, muql-az-dmrewv foods in small amounts as you are able. These foods include bananas, applesauce, rice, lean meats, toast, and crackers. Avoid drinking fluids that contain a lot of sugar or caffeine, such as energy drinks, sports drinks, and soda. Avoid alcohol. Avoid spicy or fatty foods. General instructions Take fbdd-ghc-bioeokt and prescription medicines only as told by your health care provider. Rest at home while you recover. Drink enough fluid to keep your urine pale yellow. Breathe slowly and deeply when you feel nauseous. Avoid smelling things that have strong odors. Wash your hands often using soap and water. If soap and water are not available, use hand auto accessories installer. Make sure that all people in your [...] recommendations for eating and drinking and take qoug-lab-qovvvqs and prescription medicinesonly as told by your [...] 09/12/2005 Document Revised: 01/13/2019 Document Reviewed: 01/13/2019 [employer] Patient Education 2020 [employer]. Follow Up Care 10/02/2022 13:26:11 With:Inessa Grajeda CNP Address: When:1 to 2 weeks Comments:Following colonoscopy. [facility] 03-04-2023 Hospital Discharge [...] Treatment for this condition includes: Antibiotic medicine. Gmmi-ibq-mfcfrch medicines to treat discomfort. Drinking enough water [...] Follow these instructions at home: Medicines Take aydy-hmm-zxsafzy and prescription medicines only as told by [...] 05/15/2006 Document Revised: 07/23/2019 Document Reviewed: 02/12/2019 [employer] Patient Education 2020 [employer]. 10/20/2022 12:23:03 Antibiotic Medicine, Adult Antibiotic Medicine, [...] 04/17/2005 Document Revised: 02/03/2019 Document Reviewed: 08/06/2017 [employer] Patient Education 2020 [employer]. Follow Up Care 10/20/2022 10:33:51 With:ROBERT GIRON Address: [place] [address] Business (1) When:10/23/2022 12:22:53 Comments:Call the office [...] you develop any new or worsening symptoms. [facility]03-04-2023 Evaluation + Plan noteExtracted from: Title:ED Note Author:Santos Landry DO Date: Acute UTI (N39.0: Urinary tr act infection, site not specified) Orders: azithromycin, = 1 packet(s), Oral, As Directed, as directed on package labeling, X 5 day(s), # 6 tab(s), Refills(s) 0, Pharmacy: [id number], 163, cm, 10/20/22 10:48:00 EST, Height/Length [...] Appointments Appointment Date:10/23/2022 09:00:00 AM Scheduled Provider: [facility] Appointment Type:US Abdominal/Pelvis (FT) Appointment Date:10/29/2022 02:40:00 PM Scheduled Provider:Inessa Grajeda CNP [place] Appointment Type:BADH Follow Up Appointment Date:10/30/2022 03:00:00 PM Scheduled Provider:Elliott Solis MD [facility] Type:Cardiology Follow Up (FT) Appointment Date:11/07/2022 02:40:00 PM Scheduled Provider: Location:[facility] Appointment Type:Surgery FT Appointment Date:01/30/2023 01:20:00 PM Scheduled Provider:SHERI JIMENES PA-C [place] [place] [facility] [place] Appointment Type:URO Office Visit Diagnostic Tests Pending * Urine Culture 10/20/22 Future Scheduled Tests Laboratory* Clostridium difficile by PCR 05/09/22 * CBC w/ Auto Diff 05/09/22 * Comprehensive Metabolic Panel 05/09/22 Radiology* US Abdomen Complete 10/23/22 [facility]02-24-2023 Hospital Discharge instructions Patient Education 10/12/2022 14:38:59 [...] take to decrease my back pain? Take lnaq-tdi-fzfjqkw or prescription medicines only as told by [...] and in- person support groups through: The [place] Chronic [employer] Association: https://theacpa.org/Support-Groups The [place]. Pain [...] 08/19/2016 Document Revised: 07/18/2018 Document Reviewed: 04/13/2017 [employer] Patient Education [employer] Follow Up Care 10/12/2022 12:55:29 With:ROBERT GIRON Address: [address] [place] [address] Business (1) When:10/15/2022 14:38:47 Comments:Call the [...] you develop any new or worsening symptoms. [facility]02-24-2023 Evaluation + Plan noteExtracted from: Title:ED Note Author:Isaías Rutledge PA-C Popeye e:10/12/22 Chronic pain (G89.29: Other chronic pain) [...] Appointments Appointment Date:10/23/2022 09:00:00 AM Scheduled Provider: [facility] Appointment Type:US Abdominal/Pelvis (FT) Appointment Date:10/29/2022 02:40:00 PM Scheduled Provider:Inessa Grajeda CNP [place] Appointment Type:BADH Follow Up Appointment Date:10/30/2022 03:00:00 PM Scheduled Provider:Elliott Solis MD [facility] Type:Cardiology Follow Up (FT) Appointment Date:11/07/2022 02:40:00 PM Scheduled Provider: Location:[facility] Appointment Type:Surgery FT Appointment Date:01/30/2023 01:20:00 PM Scheduled Provider:SHERI JIMENES PA-C [place] [place] [place] [facility] [place] Appointment Type:URO Office Visit Future Scheduled Tests Laboratory* Fecal WBC Lactoferrin 05/09/22 * Giardia lamblia, Direct Detection EIA 05/09/22 * O & P Exam, Routine 05/09/22 * Clostridium difficile by PCR 05/09/22 * Enteric Panel by PCR 05/09/22 * CBC w/ Auto Diff 05/09/22 * Comprehensive Metabolic Panel 05/09/22 Radiology* US Abdomen Complete 10/23/22 [facility]02-14-2023 Hospital Discharge instructions Patient Education 10/02/2022 13:01:04 [...] water added (diluted fruit juice). Eat bland, wtfs-cm-twpevo foods in small amounts as you are able. These foods include bananas, applesauce, rice, lean meats, toast, and crackers. Avoid fluids that contain a lot of sugar or caffeine, such as energy drinks, sports drinks, and soda. Avoid alcohol. Avoid spicy or fatty foods. General instructions Take fknb-duq-xjxkpbz and prescription medicines only as told by your health care provider. Drink enough fluid to keep your urine pale yellow. Wash your hands often using soap and water. If soap and water are not available, use hand auto accessories installer. Make sure that all people in your [...] eating and drinking to prevent dehydration. Take bdfv-byn-tglaumj and prescription medicines only as told by [...] 08/05/2006 Document Revised: 11/27/2019 Document Reviewed: 01/13/2019 [employer] Patient Education 2020 [employer]. Follow Up Care 09/21/2022 11:43:03 With:Inessa Grajeda CNP Address: When:1 month [facility] 01-19-2023 Evaluation + Plan noteExtracted from: Title:ANES Post-operative Note Author:Johny Oseguera MD Date:09/06/22 Plan Transfer/Discharge: Transfer/Discharge Discharge when meets criteria ( To home ). Extracted from: Title:ANES Pre-operative Note Author:Lillie Oseguera MD Date:09/06/22 Plan [place] Society of Anesthesiologists (ASA) physical status classification: Class III. Anesthetic Preoperative Plan: Anesthesia General, and Monitored anethesia care. Future Appointments Appointment Date:10/30/2022 03:00:00 PM Scheduled Provider:Elliott Solis MD Location:FT.Cardiology Clinic Appointment Type:Cardiology Follow Up (FT) Appointment Date:01/30/2023 01:20:00 PM Scheduled Provider:SHERI JIMENES PA-C Location:[facility] Appointment Type:URO Office Visit Future Scheduled Tests Laboratory* Fecal WBC Lactoferrin 05/09/22 * Giardia lamblia, Direct Detection EIA 05/09/22 * O & P Exam, Routine 05/09/22 * Clostridium difficile by PCR 05/09/22 * Enteric Panel by PCR 05/09/22 * CBC w/ Auto Diff 05/09/22 * Comprehensive Metabolic Panel 05/09/22 [facility]01-19-2023 Hospital Discharge instructions Patient Education 09/06/2022 09:52:38 Colonoscopy, Care After Surgery [place] (CUSTOM) Colonoscopy Care After Surgery Please read the instructions outlined below and refer to this sheet in the next few weeks. These discharge instructions provide you with general information on caring for yourself after you leave thesplds hospital. Your doctor may also give you [...] what activities are safe for you. Take hfmw-uqb-eneavxc and prescription medicines only as told by [...] 02/03/2013 Document Revised: 01/27/2019 Document Reviewed: 01/05/2019 [employer] Patient Education 2020 [employer] Follow Up Care 06/26/2022 12:25:13 With:Zulema CRAMER Address: [facility] [address] [place] [id number] [facility] (1) When: Unknown Comments:Office to call for follow-up appointment [facility]11-17-2022 Evaluation note* Encounter Date Diagnosis Assessment Notes Treatment Notes Treatment Clinical Notes Jun, Chronic obstructive pulmonary disease, unspecified (ICD-10 - J44.9) Jun, Tobacco abuse (ICD-10 - Z72.0) Cut back on smoking to goal of stopping, Jun, Diastolic dysfunction (ICD-10 - I51.9) [employer] Other 04-25-2022 Hospital Discharge instructions Patient Education [...] fried and sweet foods. General instructions Take gfnv-mlo-apdxrgf and prescription medicines only as told by [...] 06/01/2010 Document Revised: 11/26/2019 Document Reviewed: 08/21/2018 [employer] Patient Education 2020 [employer] Follow Up Care 09/04/2021 10:41:00 With:LILI WALSH, Donaldo Moreira, URL Address: [facility] [address] [place] [phone] When:04/12/2022 [facility] [place]etta 11-09-2021 NoteHNO ID: [id number] Author: Ye Rodriguez PA-C Service: ? Author Type: Physician Hold Worker Type: Progress Notes Filed: 06/27/2021 4:56 PM Note Text: [facility] [place] [facility] NOTE CC: Keturah Herrera is a [...] bipolar - COPD (chronic obstructive pulmonary disease) ([facility]) - Depression - Ana Laura-Danlos disease - [...] Derived Hives - Atomoxetine (more content not included)...[facility]09-01-2021 NoteHNO ID: [id number] Author: RT James(R) Service: ? Author Type: Punch Box Tender Type: Progress Notes Filed: 04/19/2021 1:56 PM [...] BY: RT James(R) April 19, 2021 1:55 [facility]09-01-2021 NoteHNO ID: [id number] Author: Randi Farrell, DO Service: ? Author [...] She will follow-up in a month if necessary[facility]2021 NoteHNO ID: [id number] Author: KALYANI Ramirez) Service: ? Author Type: Punch Box Tender Type: Progress Notes Filed: 04/19/2021 1:09 PM [...] BY: RT James(R) April 19, 2021 1:09 [facility] Future Appointments Appointment Date:12/11/2021 11:45:00 AM Scheduled Provider:Donaldo PEARSON MD Location:[facility] Appointment Type:URO Office Visit Appointment Date:01/11/2022 02:15:00 PM Scheduled Provider:Zulema CRAMER MD [place]ment Type:BAD [facility] Future Appointments Appointment Date:01/11/2022 02:15:00 PM Scheduled Provider:Zulema CRAMER MD [place] Appointment Type:BADH Follow Up Appointment Date:04/09/2022 01:45:00 PM Scheduled Provider:Donaldo PEARSON MD Location:[facility] Appointment Type:URO Office Visit [facility] evaluation + Plan note Future Appointments Appointment Date:02/01/2022 08:15:00 AM Scheduled Provider: Location:[facility] Appointment Type:Surgery PAT COVID Testing Appointment Date:02/01/2022 09:00:00 AM Scheduled Provider: Location:[facility] Appointment Type:Surgery FT Appointment Date:02/08/2022 09:40:00 AM Scheduled Provider: Location:[facility] Appointment Type:Surgery FT Appointment Date:04/09/2022 01:45:00 PM Scheduled Provider:Donaldo PEARSON MD Location:[facility] Appointment Type:URO Office Visit [facility] Evaluation + Plan note Future Appointments Appointment Date:02/01/2022 08:15:00 AM Scheduled Provider: Location:[facility] Appointment Type:Surgery PAT COVID Testing Appointment Date:02/01/2022 09:00:00 AM Scheduled Provider: Location:[facility] Appointment Type:Surgery FT Appointment Date:02/08/2022 09:40:00 AM Scheduled Provider: Location:[facility] Appointment Type:Surgery FT Appointment Date:03/06/2022 10:30:00 AM Scheduled Provider:Cady CALIX CNP Location:.[facility] Appointment Type:Cardiology Follow Up (FT) Appointment Date:04/09/2022 01:45:00 PM Scheduled Provider:Donaldo PEARSON MD [facility] Office Visit [facility] + Plan note Future Appointments Appointment Date:02/08/2022 09:30:00 AM Scheduled Provider: Location:[facility] Appointment Type:Surgery FT Appointment Date:03/06/2022 10:30:00 AM Scheduled Provider:Cady CALIX CNP [facility] Type:Cardiology Follow Up (FT) Appointment Date:04/09/2022 01:45:00 PM Scheduled Provider:Donaldo PEARSON MD [facility] Office Visit [facility] + Plan note Future Appointments Appointment Date:03/06/2022 10:30:00 AM Scheduled Provider:Cady CALIX CNP [facility] Type:Cardiology Follow Up (FT) Appointment Date:03/22/2022 08:15:00 AM Scheduled Provider: Location:[facility] Appointment Type:Surgery PAT COVID Testing Appointment Date:03/29/2022 08:40:00 AM Scheduled Provider: Location:[facility] Appointment Type:Surgery FT Appointment Date:04/09/2022 01:45:00 PM Scheduled Provider:Doanldo PEARSON MD Location:[facility] Appointment Type:URO Office Visit [facility] + [facility] note Future Appointments Appointment Date:03/20/2022 01:00:00 PM Scheduled Provider: [facility] Type:Cardiology Nurse Visit (FT) Appointment Date:03/22/2022 08:15:00 AM Scheduled Provider: Location:[facility] Appointment Type:Surgery PAT COVID Testing Appointment Date:03/29/2022 08:40:00 AM Scheduled Provider: Location:[facility] Appointment Type:Surgery FT Appointment Date:04/09/2022 01:45:00 PM Scheduled Provider:Donaldo PEARSON MD [facility] Type:URO Office Visit Appointment Date:09/06/2022 01:15:00 PM Scheduled Provider:Elliott Solis MD [facility] Type:Cardiology Follow Up (FT) [facility] + Plan note Future Appointments Appointment Date:03/22/2022 08:15:00 AM Scheduled Provider: Location:[facility] Appointment Type:Surgery PAT COVID Testing Appointment Date:03/29/2022 08:40:00 AM Scheduled Provider: Location:[facility] Appointment Type:Surgery FT Appointment Date:04/09/2022 01:45:00 PM Scheduled Provider:Donaldo PEARSON MD Location:[facility] Appointment Type:URO Office Visit Appointment Date:09/06/2022 01:15:00 PM Scheduled Provider:Elliott Solis MD Location:.[facility] App[facility]ment Type:[facility]iology [facility] (FT) [facility] Future Appointments Appointment Date:03/29/2022 08:40:00 AM Scheduled Provider: Location:[facility] Appointment Type:Surgery FT Appointment Date:04/09/2022 01:45:00 PM Scheduled Provider:Donaldo PEARSON MD Location:[facility] Appointment Type:URO Office Visit Appointment Date:09/06/2022 01:15:00 PM Scheduled Provider:Elliott Solis MD Location:.[facility] Appointment Type:Cardiology Follow [facility] (FT) [facility] Future Appointments Appointment Date:05/09/2022 01:40:00 PM Scheduled Provider:Inessa Grajeda CNP [place] Appointment Type:BADH Follow Up Appointment Date:05/15/2022 01:30:00 PM Scheduled Provider:Cady CALIX CNP [facility] Type:Cardiology ED Follow Up (FT) Appointment Date:05/16/2022 01:20:00 PM Scheduled Provider:SHERI JIMENES PA-C Location:[facility] Appointment Type:URO Office Visit Appointment Date:09/06/2022 01:15:00 PM Scheduled Provider:Elliott Solis MD [facility] Type:[facility] (FT) [facility] Future Appointments Appointment Date:06/11/2022 11:00:00 AM Scheduled Provider: [facility] Type:Surgery PAT COVID Testing Appointment Date:06/18/2022 09:45:00 AM Scheduled Provider: [facility] [facility] Appointment Type:Surgery FT Appointment Date:09/06/2022 01:15:00 PM Scheduled Provider:Elliott Solis MD [facility] Appointment Type:Cardiology Follow Up (FT) Appointment Date:10/30/2022 03:00:00 PM Scheduled Provider:Elliott Solis MD [facility] Appointment Type:Cardiology Follow Up (FT) Future Scheduled Tests Laboratory* Fecal WBC Lactoferrin 05/09/22 * Giardia lamblia, Direct Detection EIA 05/09/22 * O & P Exam, Routine 05/09/22 * Clostridium difficile by PCR 05/09/22 * Enteric Panel by PCR 05/09/22 * CBC w/ Auto Diff 05/09/22 * Comprehensive Metabolic [facility] 05/09/22 [facility] Future App[facility]ments Appointment Date:09/06/2022 01:15:00 PM Scheduled Provider:Elliott Solis MD [facility] Appointment Type:Cardiology Follow Up (FT) Appointment Date:10/30/2022 03:00:00 PM Scheduled Provider:Elliott Solis MD [facility] Appointment Type:Cardiology Follow Up (FT) Appointment Date:01/30/2023 01:20:00 PM Scheduled Provider:SHERI JIMENES PA-C Location:[facility] Appointment Type:URO Office Visit Future Scheduled Tests Laboratory* Fecal WBC Lactoferrin 05/09/22 * Giardia lamblia, Direct Detection EIA 05/09/22 * O & P Exam, Routine 05/09/22 * Clostridium difficile by PCR 05/09/22 * Enteric Panel by PCR 05/09/22 * CBC w/ Auto Diff 05/09/22 * Comprehensive Metabolic Panel 05/09/22 [facility] Future Appointments Appointment Date:10/30/2022 03:00:00 PM Scheduled Provider:Elliott Solis MD [facility] Appointment Type:Cardiology Follow Up (FT) Appointment Date:01/30/2023 01:20:00 PM Scheduled Provider:SHERI JIMENES PA-C Location:[facility] Appointment Type:URO Office Visit Future Scheduled Tests Laboratory* Fecal WBC Lactoferrin 05/09/22 * Giardia lamblia, Direct Detection EIA 05/09/22 * O & P Exam, Routine 05/09/22 * Clostridium difficile by PCR 05/09/22 * Enteric Panel by PCR 05/09/22 * CBC w/ Auto Diff 05/09/22 * Comprehensive Metabolic Panel 05/09/22 [facility] Future Appointments Appointment Date:10/23/2022 09:00:00 AM Scheduled Provider: [facility] Appointment Type:US Abdominal/Pelvis (FT) Appointment Date:10/29/2022 02:40:00 PM Scheduled Provider:Inessa Grajeda CNP [place] Appointment Type:BADH Follow Up Appointment Date:10/30/2022 03:00:00 PM Scheduled Provider:Elliott Solis MD [facility] Appointment Type:Cardiology Follow Up (FT) Appointment Date:10/31/2022 03:15:00 PM Scheduled Provider: Location:[facility] Appointment Type:Surgery PAT COVID Testing Appointment Date:11/07/2022 02:40:00 PM Scheduled Provider: Location:[facility] Appointment Type:Surgery FT Appointment Date:01/30/2023 01:20:00 PM Scheduled Provider:SHERI JIMENES PA-C Location:[facility] Appointment Type:URO Office Visit Future Scheduled Tests Laboratory* Fecal WBC Lactoferrin 05/09/22 * Giardia lamblia, Direct Detection EIA 05/09/22 * O & P Exam, Routine 05/09/22 * Clostridium difficile by PCR 05/09/22 * Enteric Panel by PCR 05/09/22 * CBC w/ Auto Diff 05/09/22 * Comprehensive Metabolic Panel 05/09/22 Radiology* US Abdomen Complete 10/23/22 [facility] Evaluation + Plan note Future Appointments Appointment Date:10/30/2022 08:00:00 AM Scheduled Provider: [facility] Appointment Type:US Abdominal/Pelvis (FT) Appointment Date:10/30/2022 03:00:00 PM Scheduled Provider:Elliott Solis MD [facility] Appointment Type:Cardiology Follow Up (FT) Appointment Date:11/07/2022 02:40:00 PM Scheduled Provider: Location:[facility] Appointment Type:Surgery FT Appointment Date:12/10/2022 02:40:00 PM Scheduled Provider:Inessa Grajeda CNP [place] [place] [facility] Appointment Type:BAD Follow Up Appointment Date:01/30/2023 01:20:00 PM Scheduled Provider:SHERI JIMENES PA-C Location:[facility] Appointment Type:URO Office Visit Future Scheduled Tests Laboratory* Clostridium difficile by PCR 05/09/22 * CBC w/ Auto Diff 05/09/22 * Comprehensive Metabolic Panel 05/09/22 Radiology* US Abdomen Complete 10/30/22 [facility] Evaluation + Plan note Future Appointments Appointment Date:11/07/2022 02:40:00 PM Scheduled Provider: Location:[facility] Appointment Type:Surgery Appointment Date:11/09/2022 10:00:00 AM Scheduled Provider: Location[facility] Appointment Type:US Abdominal/Pelvis () Appointment Date:12/10/2022 02:40:00 PM Scheduled Provider:Inessa Grajeda CNP Location:[facility] Appointment Type:[facility] Follow Up Appointment Date:01/30/2023 01:20:00 PM Scheduled Provider:SHERI JIMENES PA-C Location:[facility] Appointment Type:URO Office Visit Future Scheduled Tests Laboratory* Clostridium difficile by PCR 05/09/22 * CBC w/ Auto Diff 05/09/22 * Comprehensive Metabolic Panel 05/09/22 Radiology* US Abdomen Complete 11/09/22 [facility] Future Appointments Appointment Date:12/10/2022 02:40:00 PM Scheduled Provider:Inessa Grajeda CNP Location:[facility] Appointment Type:BAD Follow Up Appointment Date:01/17/2023 09:50:00 AM Scheduled Provider: Location:[facility] Appointment Type:Surgery FT Appointment Date:01/30/2023 01:20:00 PM Scheduled Provider:SHERI JIMENES PA-C Location:[facility] Appointment Type:URO Office Visit Future Scheduled Tests Laboratory* Clostridium difficile by PCR 05/09/22 * CBC w/ Auto Diff 05/09/22 * Comprehensive Metabolic Panel 05/09/22 [facility] Future Appointments Appointment Date:01/30/2023 01:20:00 PM Scheduled Provider:SHERI JIMENES PA-C Location:[facility] Appointment Type:URO Office Visit Appointment Date:02/06/2023 02:00:00 PM Scheduled Provider:Inessa Grajeda CNP [place] [place] [facility] Appointment Type:BAD Follow Up Future Scheduled Tests Laboratory* Clostridium difficile by PCR 05/09/22 * CBC w/ Auto Diff 05/09/22 * CBC w/ Auto Diff 12/25/22 * Comprehensive Metabolic Panel 05/09/22 * Comprehensive Metabolic Panel 12/25/22 [facility] Future Appointments Appointment Date:06/14/2023 11:00:00 AM Scheduled Provider: [facility] Appointment Type:CV Holter/Event (FT) Appointment Date:07/25/2023 11:45:00 AM Scheduled Provider:Elliott SOLIS MD [facility] Appointment Type:Cardiology Follow Up (FT) Future Scheduled Tests Laboratory* Pancreatic Elastase, Fecal 01/29/23 * Fecal WBC Lactoferrin 01/29/23 * Giardia lamblia, Direct Detection EIA 01/29/23 * O & P Exam, Routine 01/29/23 * Clostridium Difficile PCR 01/29/23 * Enteric Panel by PCR 01/29/23 * CBC w/ Auto Diff 12/25/22 * Comprehensive Metabolic Panel 12/25/22 Radiology* Echo Transthoracic Complete 05/20/23 [facility] Future Appointments Appointment Date:07/25/2023 11:45:00 AM Scheduled Provider:Elliott SOLIS MD [facility] Appointment Type:Cardiology Follow Up (FT) Appointment Date:07/30/2023 02:00:00 PM Scheduled Provider:SHERI JIMENES PA-C Location:[facility] Appointment Type:URO Office Visit Future Scheduled Tests Laboratory* Pancreatic Elastase, Fecal 01/29/23 * Fecal WBC Lactoferrin 01/29/23 * Giardia lamblia, Direct Detection EIA 01/29/23 * O & P Exam, Routine 01/29/23 * Clostridium Difficile PCR 01/29/23 * Enteric Panel by PCR 01/29/23 * CBC w/ Auto Diff 12/25/22 * Comprehensive Metabolic Panel 12/25/22 Radiology* Echo Transthoracic Complete 05/20/23 [facility] Future Appointments Appointment Date:07/30/2023 02:00:00 PM Scheduled Provider:SHERI JIMENES PA-C Location:[facility] Appointment Type:URO Office Visit Future Scheduled Tests Laboratory* Pancreatic Elastase, Fecal 01/29/23 * Fecal WBC Lactoferrin 01/29/23 * Giardia lamblia, Direct Detection EIA 01/29/23 * O & P Exam, Routine 01/29/23 * Clostridium Difficile PCR 01/29/23 * Enteric Panel by PCR 01/29/23 * CBC w/ Auto Diff 12/25/22 * Comprehensive Metabolic Panel 12/25/22 Radiology* Echo Transthoracic Complete 05/20/23 [facility] Future Appointments Appointment Date:12/31/2023 01:00:00 PM Scheduled Provider:SHERI JIMENES PA-C Location:[facility] Appointment Type:URO Office Visit Future Scheduled Tests Laboratory* Pancreatic Elastase, Fecal 01/29/23 * Fecal WBC Lactoferrin 01/29/23 * Giardia lamblia, Direct Detection EIA 01/29/23 * O & P Exam, Routine 01/29/23 * Clostridium Difficile PCR 01/29/23 * Enteric Panel by PCR 01/29/23 * CBC w/ Auto Diff 12/25/22 * Comprehensive Metabolic Panel 12/25/22 Radiology* Echo Transthoracic Complete 05/20/23 [facility] evaluation noteNo assessment information available [facility] Work Phone: Evaluation noteNo [facility] [employer] Other Evaluation note* Diagnosis Oral thrush Candidiasis of mouth [facility] Diagnosis Chronic bilateral low back pain with sciatica, sciatica laterality unspecified [facility]* Diagnosis Anxiety state Anxiety state, unspecified [facility] Diagnosis Chronic bilateral low back pain with bilateral sciatica Diabetic peripheral neuropathy (CMS/HCC) Type II or unspecified type diabetes mellitus with neurological manifestations, not stated as uncontrolled Lumbar radiculopathy Thoracic or lumbosacral neuritis or radiculitis, unspecified documented in this encounter [facility]* Diagnosis Hav (hallux abducto valgus), right- Primary Plantar fasciitis Plantar fascial fibromatosis Diabetes 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 polyneuropathy, with long-term current use of insulin (CMS/[facility]) Contracture of right ankle Bone spur of right foot documented in this encounter [facility] HealthcareEvaluation note* Diagnosis Chronic bilateral low back pain with bilateral sciatica Diabetic peripheral neuropathy (CMS/HCC) Type II or unspecified type diabetes mellitus with neurological manifestations, not stated as uncontrolled Lumbar radiculopathy Thoracic or lumbosacral neuritis or radiculitis, unspecified documented in this encounter [facility] Healthcare[facility]* Diagnosis Pre-op evaluation- Primary Hallux valgus of right foot Essential hypertension Unspecified essential hypertension Diabetic peripheral neuropathy ([facility]-HCC) Type II or unspecified type diabetes mellitus with neurological manifestations, not stated as uncontrolled [facility]* Diagnosis Anxiety state Anxiety state, unspecified Type 2 diabetes mellitus without complication, without long-term current use of insulin ([facility]-HCC) Type 2 diabetes mellitus with diabetic mononeuropathy, without long-term current use of insulin ([facility]) documented in this encounter [facility] SystemHistory general Narrative - Reported* Type Description Date [...] Surgical History Hysterectomy 2006 Surgical History Apendectomy 2013 Surgical History Ulnar nerve release x2 1998 [...] vom iting Hospitalization History see above surgical histo ry [employer] Other History general Narrative - Reported* Type [...] Surgical History Hysterectomy 2006 Surgical History Apendectomy 2013 Surgical History Ulnar nerve release x2 1998 [...] vom iting Hospitalization History see above surgical histo ry [employer] Other Hospital course Narrative No data available for this section [facility] No data available for this section [facility] SystemInstructionsNot on filedocumented in this encounter [...] on filedocumented in this encounter [facility] No data available for this section [facility] Summary Purpose Family History No Family History [...] section and content) DATE CREATED AUTHOR 10/09/2021 [facility] DATE CREATED AUTHOR AUTHOR'S ORGANIZ ATION 02/22/2022 [facility] DATE CREATED AUTHOR AUTHOR'S ORGANIZ ATION 01/28/2023 [facility] DATE CREATED AUTHOR AUTHOR'S ORGANIZ ATION 04/11/2023 [facility] DATE CREATED AUTHOR AUTHOR'S ORGANIZ ATION 06/26/2023 [facility] DATE CREATED AUTHOR AUTHOR'S ORGANIZ ATION 09[facility]22/2023 [facility] DATE CREATED AUTHOR AUTHOR'S ORGANIZ ATION 10/05/2023 [facility] DATE CREATED AUTHOR AUTHOR'S ORGANIZ ATION 11/21/2023 [facility] EPIC DATE CREATED AUTHOR AUTHOR'S ORGANIZ ATION 11/28/2023 [facility] Care Team (unrecognized sect ion and content) Team Status: Active Member Role Status Dates Robert Giron DO Primary Care Provider Active Team Status: Inactive Member Role Status Dates Robert Giron DO Primary Care Provider Active Valarie Herrera APRN [facility] Attending Provider Active [employer]ather [employer]fter Relationship Specialty Start Date End Date Robert Giron DO [address] [place] [address] PCP - General Family Medicine 05/10/22 [employer] Relationship Specialty Start Date End Date Robert Giron DO [address], [place] [address] PCP - General Family Medicine 05/10/22 [employer] Relationship Specialty Start Date End Date Robert Giron DO [address], [place] [address] PCP - General Family Medicine 05/10/22 [employer] Relationship Specialty Start Date End Date Robert Giron [address] [place] [address] PCP - General Family Medicine 05/10/22 [employer] Relationship Specialty Start Date End Date Robert Giron MD [address] [place] [address] PCP - General Family Medicine 07/24/23 [employer] Relationship Specialty Start Date End Date Robert Giron DO [address] [place] [address] PCP - General Family Medicine 05/10/22 [employer] Relationship Specialty Start Date End Date Robert Giron [address] [place] [address] PCP - General Family Medicine 05/10/22 [employer] Relationship Specialty Start Date End Date Robert Giron Pamela [address] [place] [address] PCP - General Family Medicine 05/10/22 [employer] Relationship Specialty Start Date End Date Robert Giron [address] [place] [address] PCP - General Family Medicine 05/10/22 [employer] Relationship Specialty Start Date End Date Robert Giron DO [address] [place] [address] PCP - General Family Medicine 05/10/22 Goals (unrecognized section and content) Goals may be documented in a n alternate section REASON FOR VISIT (unrecogniz ed section and content) Reason Comments Med Refill Reason Onset Date Comments Med Refill 09/08/2023 Reason Onset Date Comments Med Refill 09/20/2023 Reason Comments Consult Surgery consult Reason Comments Pre-op Exam Reason Onset Date Comments Med Refill 10/30/2023 Reason Onset Date Comments Med Refill 11/04/2023 FOR RECORDS PERTAINING TO PATIENTS WHO ARE [...] BE BASED ON THE PRIMARY CLINICAL RECORDS. [employer] provides no warranty or guarantee of the accuracy or completeness of information in this document.
--- NOTE | 2023-12-01 20:44 | ED.GENADUL1 ---
HPI HPI - General Adult General Chief complaint: Back Pain/Injury Stated complaint: Back Pain Time Seen by Provider: 12/01/23 20:27 Source: patient Mode of arrival: walk-in Limitations: no limitations History of Present Illness HPI narrative: This 53-year-old female with chronic back pain presents for evaluation of pain across her mid back as well as nausea vomiting and diarrhea. She states she has vomiting and diarrhea. She states she has had nausea vomiting and diarrhea throughout the day today. She has not had a fever. She does not have a cough. She is diabetic and her glucose has been in the 200s today. She has no urinary symptoms. She does not have a history of kidney stones. She denies any chest pain or shortness of breath. She denies any chest pain or shortness of breath. She denies any upper respiratory symptoms. She is not having any specific abdominal pain. She last had Rx for Percocet on 11/21/23 and 11/17/23 Related Data Home Medications ?Medication ?Instructions ?Recorded ?Confirmed alendronate 70 mg tablet 70 mg PO QWEEK 11/05/23 12/01/23 alprazolam 1 mg tablet 1 mg PO TID PRN anxiety 11/05/23 12/01/23 aripiprazole 15 mg tablet 15 mg PO DAILY 11/05/23 12/01/23 atorvastatin 80 mg tablet 80 mg PO DAILY 11/05/23 12/01/23 calcium carbonate 600 mg PO BID 11/05/23 12/01/23 carvedilol 25 mg tablet 25 mg PO BID 11/05/23 12/01/23 cetirizine 10 mg tablet 10 mg PO DAILY 11/05/23 12/01/23 cyclobenzaprine 10 mg tablet 10 mg PO Q8H PRN spasms 11/05/23 12/01/23 Allergies Allergy/AdvReac Type Severity Reaction Status Date / Time adhesive tape Allergy Verified 12/01/23 20:32 amitriptyline Allergy Verified 12/01/23 20:32 amoxicillin Allergy Verified 12/01/23 20:32 atomoxetine [From Strattera] Allergy Verified 12/01/23 20:32 bupropion [From Wellbutrin] Allergy Verified 12/01/23 20:32 codeine Allergy Verified 12/01/23 20:32 dexamethasone Allergy Verified 12/01/23 20:32 divalproex sodium Allergy Verified 12/01/23 20:32 [From Depakote] duloxetine [From Cymbalta] Allergy Verified 12/01/23 20:32 fluticasone Allergy Verified 12/01/23 20:32 [From Advair Diskus] gabapentin Allergy Verified 12/01/23 20:32 ibuprofen Allergy Verified 12/01/23 20:32 ketorolac [From Toradol] Allergy Verified 12/01/23 20:32 meloxicam [From Mobic] Allergy Verified 12/01/23 20:32 methadone Allergy Verified 12/01/23 20:32 milnacipran [From Savella] Allergy Verified 12/01/23 20:32 nitrofurantoin Allergy Verified 12/01/23 20:32 [From Macrobid] paroxetine [From Paxil] Allergy Verified 12/01/23 20:32 Penicillins Allergy Verified 12/01/23 20:32 pregabalin [From Lyrica] Allergy Verified 12/01/23 20:32 ropinirole [From Requip] Allergy Verified 12/01/23 20:32 salmeterol Allergy Verified 12/01/23 20:32 [From Advair Diskus] topiramate [From Topamax] Allergy Verified 12/01/23 20:32 ziprasidone Allergy Verified 12/01/23 20:32 fish Allergy Uncoded 07/09/23 19:38 Opioid HPI Opioid Management Most Recent Opioid Data: Last Pain Scale 9 12/01/23 21:48 Ur Phencyclidine Scrn Negative (NEGATIVE) 09/20/23 08:52 Review of Systems ROS Status of ROS 10 or more systems reviewed and unremarkable except as noted in history and below PFSH PFS Social History Smoking status: Never smoker Exam Narrative Exam Narrative: Nurses note and vital signs reviewed and patient is not hypoxic. General: The patient appears well and in no apparent distress. Patient is resting comfortably on cart. She is ambulatory to and from the bathroom without difficulty, no active vomiting Skin: Warm, dry, no pallor noted. There is no rash noted. Head: Normocephalic, atraumatic Eye: Normal conjunctiva, no drainage, EOMI. PERRL Ears, Nose, Mouth, and Throat: oral mucosa is slightly dry Cardiovascular: Regular Rate and Rhythm S1S2, no murmrus, rubs or gallops, pulses are brisk and equal bilaterally Respiratory: Patient is in no distress, no accessory muscle use, lungs are clear to auscultation, no wheezing, rales or rhonchi Back: non-tender, no CVA tenderness bilaterally to percussion. GI: Normal bowel sounds, Obese, soft, non-distended, no rebound, guarding or rigidity, mild epigastric tenderness Musculoskeletal: The patient has no evidence of calf tenderness, no pitting edema, symmetrical pulses noted bilaterally Neurological: A&O x4, normal speech, no focal deficits Psychiatric: Cooperative, flat affect Constitutional Vital Signs, click to edit/add: Last Vital Signs Temp 97.8 F 12/01/23 20:28 Pulse 90 12/01/23 20:28 Resp 20 12/01/23 20:28 BP 139/82 12/01/23 20:28 Pulse Ox 96 12/01/23 20:45 O2 Del Method Room Air 12/01/23 20:45 Course Vital Signs Vital signs: Vital Signs Temperature 97.8 F 12/01/23 20:28 Pulse Rate 90 12/01/23 20:28 Respiratory Rate 20 12/01/23 20:28 Blood Pressure 139/82 12/01/23 20:28 Pulse Oximetry 96 12/01/23 20:28 Oxygen Delivery Method Room Air 12/01/23 20:28 Temperature 97.8 F 12/01/23 20:28 Pulse Rate 90 12/01/23 20:28 Respiratory Rate 20 12/01/23 20:28 Blood Pressure 139/82 12/01/23 20:28 Pulse Oximetry 96 12/01/23 20:45 Oxygen Delivery Method Room Air 12/01/23 20:45 Medical Decision Making MDM Narrative Medical decision making narrative: This 53-year-old female presents for evaluation of mid back pain with nausea vomiting and diarrhea that started earlier today. She has chronic back pain. The patient does get routine prescriptions for Percocet. She admitted to the nurse taking care of her that she ran out of Percocet yesterday. She has not had a fever. Her vital signs are stable. Abdomen is obese, non tender and soft. She has no neurologic symptoms associated with her back pain. She did have several trips to the bathroom while in the emergency department bathroom while in the emergency department but has not had diarrhea. EKG is a sinus rhythm at 80 bpm with no acute changes. An IV was placed and she was medicated with IV fluids, Zofran, Pepcid. Routine labs are reviewed. She has a mildly elevated WBC count. Electrolytes are normal with the exception of an elevated glucose at 170. Lipase is mildly elevated at 107 and alk phos is also mildly elevated. CT scan which is included in the body of this report does not show any findings concerning for acute abdominal illness. She does have a paraesophageal lymph node that has increased in size since 2020. She also has multiple levels of degenerative disc disease.. The results of the CT scan was discussed with her and she was given a copy of the scan to share with her family physician. She has not had any vomiting or diarrhea while in the emergency department and is now drinking Mountain Dew. I did career placement services counselor her on drinking sugar containing soda. . I did career placement services counselor her on drinking sugar containing soda. She will be given 2 Percocet to take home until she can follow-up with her family physician or paint and table edger and a prescription for Zofran and Bentyl.Zofran and Bentyl. Medical Records Medical records reviewed: Yes I reviewed the patient's medical records Medical records narrative: The [address] [address] [address] Scan Report Signed Patient: ROCK HERRERA MR#: [id number] : 1970 Acct:[id number] Age/Sex: 53 / F ADM Date: 12/01/23 Loc: ER Attending Dr: Ordering Physician: Carlotta Cardenas Date of Service: 12/01/23 Procedure(s): CT abdomen pelvis w con Accession Number(s): [id number] cc: IVON GIRON ~ The [address] [address] Patient Name: ROCK HERRERA MRN: [id number] date: 1970 Sex: F Assigned Patient Location: ER Current Patient Location: ER Accession/Order Number: [id number] Exam Date: 12/01/2023 22:57 Report Date: 12/02/2023 00:56 At the request of: CARLOTTA CARDENAS Procedure: CT abdomen pelvis w con EXAM: CT abdomen pelvis w con HISTORY: Abdominal pain, elevated lipase complains of pain across mid back and sciatic pain. Vomiting, nausea, diarrhea since this morning. COMPARISON: Multiple priors, most recent available CT abdomen pelvis 05/30/2021 TECHNIQUE: Multiple axial views CT abdomen pelvis with IV contrast 100 cc Omnipaque 300. Coronal sagittal reformats performed. FINDINGS: Visualized lung bases demonstrate right lower lobe paraseptal emphysematous changes. Visualized cardiac apex is unremarkable. Status post cholecystectomy, appendectomy, and hysterectomy. Mild hepatic steatosis and hepatomegaly. No peripancreatic inflammatory stranding or peripancreatic fluid collection. 7 mm hypodense structure at the posterior spleen (image 31 series 3), slightly larger when compared to CT 05/30/2021. Finding is probably a cyst or hemangioma. Few scattered subcentimeter 3-4 minor cystic structures of the bilateral renal cortices are too small to characterize and are similar to CT 05/30/2021. Adrenal glands, urinary bladder, and other pelvic structures are unremarkable. Mild colonic diverticula without pericolonic inflammatory stranding. Small hiatal hernia. 1.2 x 0.8 cm left periesophageal lymph node within the lower posterior mediastinum adjacent to the lower esophagus (image 11 series 3), previously 0.8 x 0.[address] 05/30/2021. Stomach is underdistended. No perigastric extraluminal free fluid/free air. No evidence for small bowel obstruction, large ascites, or free air. Scattered atherosclerotic calcifications of the abdominal aorta and bilateral iliac arteries. Multilevel lumbar disc herniations and facet arthropathy greatest at L2-L3, L3-L4, and to lesser extent L4-L5. The right eccentric disc herniation at L2-L3 encroaches on the right L3 descending nerve root and the left eccentric disc herniation at L3-L4 encroaches on the exiting left L3 nerve root. At least mild spinal canal stenosis by CT at these levels. No acute bony abnormality. CT/CT abdomen pelvis w con IMPRESSION: 1. No peripancreatic inflammatory stranding or peripancreatic fluid collection. 2. Abnormally enlarged 1.2 x 0.8 cm left periesophageal lymph node within the lower posterior mediastinum adjacent to the lower esophagus and small hiatal hernia (image 11 series 3), previously 0.8 x 0.[address] 05/30/2021. Findings reflecting reactive inflammatory etiology or neoplastic etiology. Recommend short interval within 2-[address] follow-up. 3. Mild amount of fluid within the lower esophageal lumen reflecting gastroesophageal reflux and/or retained fluid. No extraluminal free fluid/free air. 4. Mild colonic diverticula without pericolonic inflammatory stranding. 5. Mild hepatic steatosis and hepatomegaly. 6. Interval progression of multilevel lumbar disc herniations and facet arthropathy greatest at L2-L3, L3-L4, and to lesser extent L4-L5. The right eccentric disc herniation at L2-L3 encroaches on the right L3 descending nerve root at the right paracentral spinal canal and the left eccentric disc herniation at L3-L4 encroaches on the exiting left L3 nerve root at the left foramen. At least mild spinal canal stenosis by CT at these levels. If there is lumbar radiculopathy, MRI without contrast to better evaluate for any nerve impingement and to better evaluate degree of spinal canal stenosis as indicated. Electronically authenticated by: KURT CUEVAS Date: 12/02/2023 00:56 Lab Data Labs: Lab Results 12/01/23 12/01/23 Range/Units 20:41 20:46 WBC 12.3 H (4.0-11.0) 10^3/uL RBC 4.26 (4.20-5.40) 10^6/uL Hgb 13.3 (12.0-16.0) g/dL Hct 39.8 (36.0-48.0) % MCV 93.4 (81.0-99.0) fL MCH 31.2 (26.7-34.0) pg MCHC 33.4 (29.9-35.2) g/dL RDW 12.5 (11.0-15.0) % Plt Count 223 (150-450) 10^3/uL MPV 10.9 (9.5-13.5) fL Neut % (Auto) 61.0 (43.0-75.0) % Lymph % (Auto) 29.8 (20.5-60.0) % [place] % (Auto) 6.9 (1.7-12.0) % Eos % (Auto) 1.0 (0.9-7.0) % Baso % (Auto) 0.9 (0.2-2.0) % Neut # (Auto) 7.5 H (1.4-6.5) 10^3/uL Lymph # (Auto) 3.7 (1.2-3.8) 10^3/uL [place] # (Auto) 0.9 H (0.3-0.8) 10^3/uL Eos # (Auto) 0.1 (0.0-0.7) 10^3/uL Baso # (Auto) 0.1 (0.0-0.1) 10^3/uL Abs Immat Gran (auto) 0.05 H (0.00-0.03) 10^3/uL Imm/Tot Granulo (auto) 0.4 (0.0-0.5) % Sodium 142 (136-145) mmol/L Potassium 3.6 (3.5-5.1) mmol/L Chloride 105 (98-107) mmol/L Carbon Dioxide 26.5 (21.0-32.0) mmol/L Anion Gap 14.1 BUN 3.0 L (7.0-18.0) mg/dL Creatinine 1.06 H (0.55-1.02) mg/dL Est GFR ( Amer) >60 (>=60) Est GFR (Non-Af Amer) 54 L (>=60) BUN/Creatinine Ratio 2.8 Glucose 170 H (74-106) mg/dL Lactate 2.0 (0.4-2.0) mmol/L Calcium 9.4 (8.5-10.1) mg/dL Total Bilirubin 0.3 (0.2-1.0) mg/dL AST 25 (15-37) U/L ALT 26 (14-59) U/L Alkaline Phosphatase 131 H (46-116) U/L Total Protein 7.2 (6.4-8.2) g/dL Albumin 3.5 (3.4-5.0) g/dL Globulin 3.7 g/dL Albumin/Globulin Ratio 0.9 Lipase 107.0 H (16.0-77.0) U/L Urine Color Lt. yellow (YELLOW) Urine Clarity Clear (CLEAR) Urine pH 6.0 (5.0-9.0) Ur Specific [place] <=1.005 A (1.005-1.025) Urine Protein Negative (NEG/TRACE) mg/dL Urine Glucose (UA) Negative (NEGATIVE) mg/dL Urine Ketones Negative (NEGATIVE) mg/dL Urine Occult Blood Negative (NEGATIVE) Urine Nitrite Negative (NEGATIVE) Urine Bilirubin Negative (NEGATIVE) Urine Urobilinogen 0.2 (0.2-1.0) EU/dL Ur Leukocyte Esterase Negative (NEGATIVE) Urine RBC None seen (0-2) #/HPF Urine WBC None seen (NONE SEEN) #/HPF Ur Squamous Epith Cells Rare (NONE/RARE) #/LPF Urine Crystals None seen (None Seen) #/HPF Urine Bacteria None seen (NONE SEEN) #/HPF Urine Casts None seen (NONE SEEN) #/LPF Urine Mucus None seen (NONE SEEN) Ur Culture Indicated? No ECG Data Attestation: I personally reviewed and interpreted this ECG as follows: (Sinus rhythm 80 bpm, normal axis, normal intervals, no acute ST segment elevation or T wave inversion, T waves are diffusely flattened) Discharge Plan Discharge Stand Alone Forms: Portal Instructions Chief Complaint: Back Pain/Injury Clinical Impression: Nausea, vomiting, and diarrhea, Abnormal finding on CT scan, Degenerative disk disease, Chronic back pain Patient Disposition: Home, Self-Care Time of Disposition Decision: 01:08 Condition: Good Prescriptions / Home Meds: No Action alendronate 70 mg tablet 70 mg PO QWEEK alprazolam 1 mg tablet 1 mg PO TID PRN (Reason: anxiety) aripiprazole 15 mg tablet 15 mg PO DAILY atorvastatin 80 mg tablet 80 mg PO DAILY calcium carbonate 600 mg calcium (1,500 mg) tablet 600 mg PO BID carvedilol 25 mg tablet 25 mg PO BID cetirizine 10 mg tablet 10 mg PO DAILY cyclobenzaprine 10 mg tablet 10 mg PO Q8H PRN (Reason: spasms) Print Language: Estonian Instructions: Acute Nausea and Vomiting (ED), Chronic Back Pain (DC) Additional Instructions: Follow up with your PCP for further evaluation and management. Please share the results of your CT scan with the abnormal finding of the paraesophageal lymph node. Referrals: IVON GIRON [Primary Care Provider] - 1 week
[2023-12-01 20:45] VITALS: O2SAT 96
--- NOTE | 2023-12-01 20:48 | ECG_ITS ---
The [facility] Test Date: 2023-12-01 Pat Name: ROCK HERRERA Department: Room: - Gender: Female Zipper Measurer: : 1970 Requested By: IVON GIRON Order Number: [id number] Reading MD: WILLA GAINES Measurements Intervals [place] Rate: 80 P: 43 NE: 148 QRS: 54 QRSD: 86 T: -30 QT: 360 QTc: 397 Interpretive Statements 1100 Sinus rhythm 4164 Chronic Tw[place] abnormality, possible anterior ischemia 9150 abnormal ECG Electronically Signed On 12-02-2023 6:59:34 EDT by WILLA GAINES
[2023-12-01 20:55] LABS: Basophils Absolute Auto 0.1 10^3/uL (0.0-0.1); Basophils Percent Auto 0.9 % (0.2-2.0); Eosinophils Absolute Auto 0.1 10^3/uL (0.0-0.7); Hematocrit 39.8 % (36.0-48.0); Hemoglobin 13.3 g/dL (12.0-16.0); Immature Granulocytes Abs Auto 0.05 10^3/uL (0.00-0.03); Immature Granulocytes Pct Auto 0.4 % (0.0-0.5); Lymphocytes Absolute Auto 3.7 10^3/uL (1.2-3.8); Lymphocytes Percent Auto 29.8 % (20.5-60.0); Mean Corpuscular HGB Conc 33.4 g/dL (29.9-35.2); Mean Corpuscular Hemoglobin 31.2 pg (26.7-34.0); Mean Corpuscular Volume 93.4 fL (81.0-99.0); Mean Platelet Volume 10.9 fL (9.5-13.5); Monocytes Absolute Auto 0.9 10^3/uL (0.3-0.8); Monocytes Percent Auto 6.9 % (1.7-12.0); Neutrophils Absolute Auto 7.5 10^3/uL (1.4-6.5); Platelet Count 223 10^3/uL (150-450); Red Blood Count 4.26 10^6/uL (4.20-5.40); Red Cell Distribution Width 12.5 % (11.0-15.0); White Blood Count 12.3 10^3/uL (4.0-11.0)
[2023-12-01 20:57] LABS: Bilirubin Urine NEGATIVE (NEGATIVE); Blood Urine NEGATIVE (NEGATIVE); Clarity Urine CLEAR (CLEAR); Color Urine LT. YELLOW (YELLOW); Glucose Urine UA NEGATIVE (NEGATIVE); Ketones Urine NEGATIVE (NEGATIVE); Leukocyte Esterase Urine NEGATIVE (NEGATIVE); Nitrite Urine NEGATIVE (NEGATIVE); Protein Urine NEGATIVE (NEG/TRACE); Specific Gravity Urine <=1.005 (1.005-1.025); Urobilinogen Urine 0.2 EU/dL (0.2-1.0)
[2023-12-01 21:04] LABS: Bacteria Urine NONE SEEN #/HPF (NONE SEEN); Cast Seen? NONE SEEN #/LPF (NONE SEEN); Crystals Seen? None Seen #/HPF (None Seen); Mucus Urine NONE SEEN (NONE SEEN); RBC Urine NONE SEEN #/HPF (0-2); Squamous Epithelial Cell Urine RARE #/LPF (NONE/RARE); Urine Culture Indicated NO; WBC Urine NONE SEEN #/HPF (NONE SEEN)
[2023-12-01] MEDS: ONDANSETRON PF 4 MG/2 ML VIAL IV (21:04)
[2023-12-01] MEDS: 0.9 % SODIUM CHLORIDE 1,000 ML 1000 ML IV (21:04)
[2023-12-01 21:48] LABS: Alanine Aminotransferase 26 U/L (14-59); Albumin Globulin Ratio 0.9; Albumin Level 3.5 g/dL (3.4-5.0); Alkaline Phosphatase 131 U/L (46-116); Anion Gap 14.1; Aspartate Amino Transferase 25 U/L (15-37); BUN Creatinine Ratio 2.8; Bilirubin Total 0.3 mg/dL (0.2-1.0); Calcium 9.4 mg/dL (8.5-10.1); Carbon Dioxide 26.5 mmol/L (21.0-32.0); Chloride 105 mmol/L (98-107); Estimated GFR (African America >60 (>=60); Estimated GFR (Non-African Ame 54 (>=60); Globulin 3.7 g/dL; Glucose 170 mg/dL (74-106); Potassium 3.6 mmol/L (3.5-5.1); Sodium 142 mmol/L (136-145); Total Protein 7.2 g/dL (6.4-8.2)
[2023-12-01] MEDS: OXYCODONE HCL/ACETAMINOPHEN 5MG/325MG 1 TAB PO (21:48)
--- NOTE | 2023-12-01 21:57 | CT_ITS ---
The [address] [address] Patient Name: ROCK HERRERA MRN: [facility]:[id number] date: 1970 Sex: F Assigned Patient Location: ER Current Patient Location: ER Accession/Order Number: [id number] Exam Date: 12/01/2023 22:57 Report Date: 12/02/2023 00:56 At the request of: CATY MARKER Procedure: CT abdomen pelvis w con EXAM: CT abdomen pelvis w con HISTORY: Abdominal pain, elevated lipase complains of pain across mid back and sciatic pain. Vomiting, nausea, diarrhea since this morning. COMPARISON: Multiple priors, most recent available CT abdomen pelvis 05/30/2021 TECHNIQUE: Multiple axial views CT abdomen pelvis with IV contrast 100 cc Omnipaque 300. Coronal sagittal reformats performed. FINDINGS: Visualized lung bases demonstrate right lower lobe paraseptal emphysematous changes. Visualized cardiac apex is unremarkable. Status post cholecystectomy, appendectomy, and hysterectomy. Mild hepatic steatosis and hepatomegaly. No peripancreatic inflammatory stranding or peripancreatic fluid collection. 7 mm hypodense structure at the posterior spleen (image 31 series 3), slightly larger when compared to CT 05/30/2021. Finding is probably a cyst or hemangioma. Few scattered subcentimeter 3-4 minor cystic structures of the bilateral renal cortices are too small to characterize and are similar to CT 05/30/2021. Adrenal glands, urinary bladder, and other pelvic structures are unremarkable. Mild colonic diverticula without pericolonic inflammatory stranding. Small hiatal hernia. 1.2 x 0.8 cm left periesophageal lymph node within the lower posterior mediastinum adjacent to the lower esophagus (image 11 series 3), previously 0.8 x 0.[address] 05/30/2021. Stomach is underdistended. No perigastric extraluminal free fluid/free air. No evidence for small bowel obstruction, large ascites, or free air. Scattered atherosclerotic calcifications of the abdominal aorta and bilateral iliac arteries. Multilevel lumbar disc herniations and facet arthropathy greatest at L2-L3, L3-L4, and to lesser extent L4-L5. The right eccentric disc herniation at L2-L3 encroaches on the right L3 descending nerve root and the left eccentric disc herniation at L3-L4 encroaches on the exiting left L3 nerve root. At least mild spinal canal stenosis by CT at these levels. No acute bony abnormality. CT/CT abdomen pelvis w con IMPRESSION: 1. No peripancreatic inflammatory stranding or peripancreatic fluid collection. 2. Abnormally enlarged 1.2 x 0.8 cm left periesophageal lymph node within the lower posterior mediastinum adjacent to the lower esophagus and small hiatal hernia (image 11 series 3), previously 0.8 x 0.[address] 05/30/2021. Findings reflecting reactive inflammatory etiology or neoplastic etiology. Recommend short interval within 2-[address] follow-up. 3. Mild amount of fluid within the lower esophageal lumen reflecting gastroesophageal reflux and/or retained fluid. No extraluminal free fluid/free air. 4. Mild colonic diverticula without pericolonic inflammatory stranding. 5. Mild hepatic steatosis and hepatomegaly. 6. Interval progression of multilevel lumbar disc herniations and facet arthropathy greatest at L2-L3, L3-L4, and to lesser extent L4-L5. The right eccentric disc herniation at L2-L3 encroaches on the right L3 descending nerve root at the right paracentral spinal canal and the left eccentric disc herniation at L3-L4 encroaches on the exiting left L3 nerve root at the left foramen. At least mild spinal canal stenosis by CT at these levels. If there is lumbar radiculopathy, MRI without contrast to better evaluate for any nerve impingement and to better evaluate degree of spinal canal stenosis as indicated. Electronically authenticated by: KURT CUEVAS Date: 12/02/2023 00:56
[2023-12-02] MEDS: ONDANSETRON 4 MG RAPDIS TABLET SL (01:18)
[2023-12-02] MEDS: OXYCODONE HCL/ACETAMINOPHEN 5MG/325MG 1 TAB PO (01:18)
== END 2023-12-02 01:32 | disposition home or self-care (01) ==
PROVIDERS: Emergency Provider Emergency Medicine; PCP Family Medicine
DX: R11.2 Nausea with vomiting, unspecified (principal); R19.7 Diarrhea, unspecified; R93.5 Abnormal findings on diagnostic imaging of other abdominal regions, including retroperitoneum; M51.36 Other intervertebral disc degeneration, lumbar region; G89.29 Other chronic pain; M54.9 Dorsalgia, unspecified; E11.9 Type 2 diabetes mellitus without complications; Z79.899 Other long term (current) drug therapy
CPT/HCPCS: 36415; 74177; 80053; 81001; 83605; 83690; 85025; 87507; 93005; 96361; 96374; 99285; Q9967

== ENCOUNTER 2024-01-10 22:31 | Emergency (ER) | payer OTHER, SELFPAY ==
--- OUTSIDE RECORDS SUMMARY | 2024-01-10 22:38 | XMS_ITS | CCD ---
Author Organization [facility] Inform ion [facility] Care Team Providers Care Unit Assistant Name Role Phone ROBERT GIRON Primary Care Physician [phone] Valarie Herrera Unavailable VALARIE HERRERA Attending Unavailable ROSALINELOLAURIE, DR ROBERT Santiago Primary Care Unavailable JAVIER, VALARIE Admitting Unavailable NICOLE ROJAS Consulting Unavailable JAVIERVALARIE Consulting Unavailable CAROLA ., JAMAR Attending Unavailable [...] DENG Consulting Unavailable JAJA, ELIUD Attending Unavailable FURLOLAURIE, DR ROBERT Santiago Primary Care Unavailable JAJA, ELIUD Admitting Unavailable MISC, DR MALIN Admitting Unavailable MISC, DR MALIN Attending Unavailable BREE, DR ROBERT Santiago Primary Care Unavailable MISC, DR MALIN Admitting Unavailable FURLOLAURIE, [...] Provider Robert Giron MD Primary Care Provider [phone] ROBERT GIRON Referring Unavailable ROBERT GIRON Primary Care Unavailable JOEL ALSTON Attending Unavailable ROBERT GIRON Referring Unavailable ROBERT GIRON Primary Care Unavailable JOEL ALSTON Attending Unavailable ROBERT GIRON Referring Unavailable ROBERT GIRON Primary Care Unavailable ROBERT GIRON Attending Unavailable ROSALINELOROBERT AUGUSTIN Referring Unavailable FURLONG, ROBERT G Primary Care Unavailable ANDRIA CARTER Attending Unavailable FURLONG, ROBERT G Referring Unavailable SANCHEZNURIA CORNELIUS Attending Unavailable MARTIN ARANGO Attending Unavailable ROSHAN HOLLOWAY Attending Unavailable FURLONG, ROBERT G Referring Unavailable BROWN, MARTIN A Attending Unavailable BROWN, MARTIN A Attending Unavailable BROWN, MARTIN A Referring Unavailable BROWN, MARTIN A Attending Unavailable BROWN, MARTIN A Attending Unavailable SANCHEZNURIA CORNELIUS Attending Unavailable BROWN, MARTIN A Attending Unavailable BROWN, MARTIN A Referring Unavailable BROWN, MARTIN A Attending Unavailable BROWN, MARTIN A Attending Unavailable ИВАН HARMAN Attending Unavailable FURLONG, ROBERT G Referring Unavailable RITCHIE KIRBY Attending Unavailab ИВАН Toro Attending Unavailable FURLONG, ROBERT G Referring Unavailable TATTERSИВАН WU Attending Unavailable FURLONG, ROBERT G Referring Unavailable BROWNMARTIN Attending Unavailable FRENCH LEVINE Attending Unavailable FURLONG, ROBERT G Referring Unavailable NONE, XXXX Referring Unavailable Elliott SOLIS Admitting Unavailable Elliott SOLIS Attending Unavailable Inessa Grajeda Attending Unavailable Inessa Grajeda Attending Unavailable YUDYPOLLY ROBLES Attending Unavailable YUDY, POLLY Kaminski Attending Unavailable YUDYPOLLY ROBLES Attending Unavailable YUDYPOLLY ROBLES Attending Unavailable SALAMZulema Attending Unavailable SALAM, Poole Referring Unavailable SALAM Poole Admitting Unavailable STANG, 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 Cady L Admitting Unavailable STANG, 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 Cady L Attending Unavailable STANPamela, 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 Cady L Referring Unavailable Andrew Eid Attending Unavailable Andrew Eid Referring Unavailable DO Andrew Eid Admitting Unavailabl e Cady Alva Attending Unavailable Nuria Sanchez Referring Unavailable MYRNA Alva Admitting Unavailabl e Cady Alva Attending Unavailable MYRNA Alva Admitting Unavailabl e ROSALINELOLAURIE, ROBERT Referring Unavailable NONE, XXXX Referring Unavailable Elliott SOLIS Admitting Unavailable Elliott SOLIS Attending Unavailable NONE, XXXX Referring Unavailable STANG, 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 Cady L Attending Unavailable NONE, XXXX Referring Unavailable STANG, 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 Cady L Admitting Unavailable STANG, 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 Cady L Attending Unavailable Allergies Allergy Classification Reported Allergen(s) Allergy Type Date of Onset Reaction(s) Facility (20 sources) Acetaminophen / HYDROcodone; Translations: [acetaminophen-hydr ocodone] Drug Allergy Unknown (qualifier value), rash [facility] (20 sources) Adhesive Tape; Translations: [Tape] Drug allergy Eruption of skin (disorder), rash [facility] (20 sources) Amitriptyline; Translations: [amitriptyline] Drug Allergy Vomiting (disorder), Abnormal Behavior [facility] (20 sources) Amoxicillin; Translations: [amoxicillin] Drug Allergy Vomiting [facility] (20 sources) Amoxicillin / Clavulanate; Translations: [amoxicillin-clavul anate] Drug Allergy Vomiting (disorder), GI Disturbance [facility] (20 sources) atomoxetine; Translations: [atomoxetine] Drug Allergy Palpitations, Other (See Comments) [facility] Comment on above: (atomoxetine) (20 sources) buPROPion; Translations: [bupropion] Drug Allergy Palpitations [facility] (20 sources) Codeine; Translations: [codeine] Drug Allergy Eruption of skin (disorder), Hives, Rash [facility] (20 sources) Dexamethasone; Translations: [dexamethasone] Drug Allergy Menopausal flushing (finding) [facility] Comment on above: (dexamethasone) (20 sources) Doxycycline; Translations: [doxycycline] Drug Allergy GI Disturbance, Palpitations [facility] (20 sources) DULoxetine; Translations: [duloxetine] Drug Allergy Unknown (qualifier value), hives [facility] (20 sources) fluticasone; Translations: [fluticasone] Drug Allergy 014 Unknown (qualifier value) [facility] (20 sources) fluticasone / salmeterol; Translations: [fluticasone-salmet su] Drug Allergy Eruption of skin (disorder), rash, Itching, Palpitations [facility] (20 sources) gabapentin; Translations: [gabapentin] Drug Allergy Unknown (qualifier value) [facility] (20 sources) Ibuprofen; Translations: [ibuprofen] Drug Allergy Eruption of skin (disorder), rash, GI Disturbance, Nausea And Vomiting [facility] (20 sources) Ketorolac; Translations: [ketorolac] Drug Allergy Unknown (qualifier value) [facility] (20 sources) meloxicam; Translations: [meloxicam] Drug Allergy Unknown (qualifier value) [facility] (20 sources) Methadone; Translations: [methadone] Drug Allergy 011 Vomiting (disorder), GI Disturbance, Nausea And Vomiting [facility] (20 sources) milnacipran; Translations: [milnacipran] Drug Allergy Unknown (qualifier value), Other (See Comments) [facility] (20 sources) moxifloxacin; Translations: [moxifloxacin] Drug Allergy Eruption of skin (disorder), rash, Nausea Only [facility] (20 sources) NITROFURANTOIN, MACROCRYSTALS / Nitrofurantoin, Monohydrate; Translations: [nitrofurantoin] Drug Allergy Other (See Comments) [facility] (20 sources) OXcarbazepine; Translations: [oxcarbazepine] Drug Allergy Unknown (qualifier value), GI Disturbance, Palpitations [facility] (20 sources) PARoxetine; Translations: [paroxetine] Drug Allergy 023 Unknown (qualifier value), Hives [facility] (20 sources) Penicillins; Translations: [penicillins] Drug allergy 012 Unknown (qualifier value), GI Disturbance, Hives, Other (See Comments), Vomiting [facility] (20 sources) pregabalin; Translations: [pregabalin] Drug Allergy 017 Unknown (qualifier value), Other (See Comments), Palpitations [facility] (20 sources) rOPINIRole; Translations: [ropinirole] Drug Allergy 019 Altered mental status [facility] (20 sources) Shellfish; Translations: [shellfish] Drug allergy Eruption of skin (disorder), rash [facility] (20 sources) Sulfamethoxazole / Trimethoprim; Translations: [sulfamethoxazole-t rimethoprim] Drug Allergy 019 Vomiting (disorder) [facility] (20 sources) topiramate; Translations: [topiramate] Drug Allergy 017 Vomiting (disorder), GI Disturbance, Other (See Comments) [facility] (20 sources) Valproate; Translations: [divalproex sodium] Drug Allergy Alopecia (disorder) [facility] (20 sources) Verapamil; Translations: [verapamil] Drug Allergy 015 Vomiting (disorder), GI Disturbance, GI intolerance [facility] (20 sources) ziprasidone; Translations: [ziprasidone] Drug Allergy 014 Unknown (qualifier value), Palpitations, Other (See Comments) [facility] (5 sources) Adhesive Tape; Translations: [Adhesive tape] Allergy to substance 013 contact dermatitis [facility] (15 sources) Fish Containing Products; Translations: [Fish Containing Products] Allergy to substance 012 Rash [facility] (6 sources) Codeine Drug Allergy rash [facility] [employer] Other (6 sources) torodol Propensity to adverse reactions severe abdominal pain [facility] [employer] Other (20 sources) Methocarbamol; Translations: [methocarbamol] Drug Allergy 023 Unknown (qualifier value), Other (See Comments) [facility] (2 sources) Acetaminophen / HYDROcodone Drug Allergy [facility] (2 sources) Amitriptyline Drug Allergy [facility] (2 sources) Amoxicillin / Clavulanate Drug Allergy [facility] (3 sources) atomoxetine; Translations: [Strattera] Drug Allergy [facility] (1 source) atorvastatin Drug Allergy [facility] (2 sources) buPROPion Drug Allergy [facility] (2 sources) carBAMazepine Drug Allergy [facility] (1 source) Clindamycin Drug Allergy 016 [facility] (2 sources) Codeine Drug Allergy [facility] (3 sources) Dexamethasone; Translations: [Decadron] Drug Allergy [facility] (2 sources) Diclofenac Drug Allergy 015 [facility] (2 sources) Doxycycline Drug Allergy [facility] (2 sources) DULoxetine Drug Allergy [facility] (14 sources) Fish derivative; Translations: [FISH DERIVED] Drug allergy (disorder) Hives [facility] (2 sources) Fluorometholone Drug Allergy [facility] (2 sources) fluticasone / salmeterol Drug Allergy [facility] (2 sources) gabapentin Drug Allergy [facility] (2 sources) hydrOXYzine Drug Allergy [facility] (2 sources) Ibuprofen Drug Allergy [facility] (2 sources) Ibuprofen Drug Allergy [facility] (1 source) Ketorolac Drug Allergy [facility] (2 sources) Ketorolac Drug Allergy [facility] (2 sources) meloxicam Drug Allergy [facility] (2 sources) Methadone Drug Allergy [facility] (2 sources) Methocarbamol Drug Allergy [facility] (2 sources) milnacipran Drug Allergy [facility] (2 sources) moxifloxacin Drug Allergy [facility] (2 sources) Nitrofurantoin Drug Allergy [facility] (2 sources) OXcarbazepine Drug Allergy [facility] (2 sources) PARoxetine Drug Allergy [facility] (3 sources) pregabalin; Translations: [Lyrica] Drug Allergy [facility] (2 sources) rOPINIRole Drug Allergy [facility] (1 source) Sulfonamides (Antibiotic) Drug allergy (disorder) [facility] (2 sources) topiramate Drug Allergy [facility] (2 sources) Valproate Drug Allergy [facility] (1 source) Verapamil Drug Allergy [facility] (3 sources) ziprasidone; Translations: [Geodon] Drug Allergy [facility] (14 sources) Adhesive agent; Translations: [ADHESIVE] Propensity to adverse reactions to drug [facility] Work Phone: (16 sources) atomoxetine; Translations: [ATOMOXETINE HCL] Drug Allergy 011 GI Disturbance, Palpitations [facility] (12 sources) buPROPion; Translations: [BUPROPION HCL] Drug Allergy GI Disturbance, Palpitations [facility] (16 sources) DULoxetine; Translations: [DULOXETINE HCL] Drug Allergy [facility] (16 sources) Eicosapentaenoate; Translations: [EICOSAPENTAENOIC ACID] Drug Allergy [facility] (12 sources) Ketorolac; Translations: [KETOROLAC TROMETHAMINE] Drug Allergy Other (See Comments) [facility] (12 sources) moxifloxacin; Translations: [MOXIFLOXACIN-SOD.C HLORIDE(ISO)] Drug Allergy Nausea [facility] (12 sources) PARoxetine; Translations: [PAROXETINE HCL] Drug Allergy [facility] (14 sources) Shellfish; Translations: [SHELLFISH CONTAINING PRODUCTS] Propensity to adverse reactions to drug Rash [facility] (12 sources) Shellfish; Translations: [SHELLFISH DERIVED] Propensity to adverse reactions to drug [facility] (12 sources) Sulfamethoxazole; Translations: [SULFAMETHOXAZOLE] Drug Allergy Other (See Comments) [facility] (12 sources) Valproate; Translations: [DIVALPROEX] Drug Allergy [facility] (12 sources) Valproate; Translations: [VALPROIC ACID] Drug Allergy [facility] (12 sources) Verapamil; Translations: [VERAPAMIL HCL] Drug Allergy [facility] (16 sources) ziprasidone; Translations: [ZIPRASIDONE HCL] Drug Allergy Palpitations, Hives [facility] (12 sources) Adhesive Tape-Silicones; Translations: [ADHESIVE TAPE-SILICONES] Propensity to adverse reactions to drug Other (See Comments), Rash [facility] (4 sources) atomoxetine Drug Allergy Palpitations [facility] (4 sources) Ketorolac Propensity to adverse reactions [facility] (4 sources) Ketorolac trometamol Allergy to substance 011 Hives [facility] (4 sources) meloxicam Drug Allergy [facility] (4 sources) Methocarbamol Drug Allergy 023 [facility] (4 sources) milnacipran Drug Allergy 022 Hives [facility] (4 sources) Nitrofurantoin Drug Allergy 022 Hives, Rash [facility] (4 sources) Oxcarbazepine Allergy to substance 011 GI intolerance, Hives, Palpitations [facility] (4 sources) Pregabalin Allergy to substance 10-08- 013 Palpitations [facility] (4 sources) Shellfish Allergy to substance Rash [facility] (4 sources) Sulfamethoxazole Propensity to adverse reactions [facility] (4 sources) Topiramate Allergy to substance 02-07- 023 GI intolerance [facility] (4 sources) Valproate Drug Allergy [facility] (4 sources) ziprasidone Drug Allergy 011 Palpitations [facility] (6 sources) Amoxicillin-Pot Clavulanate; Translations: [AMOXICILLIN-POT CLAVULANATE] Drug Intolerance Nausea And Vomiting [facility] (4 sources) Aloe-Sodium Chloride Propensity to adverse reactions [facility] (4 sources) Fish-Derived Products Drug Intolerance [facility] (4 sources) Moxifloxacin Hcl In Nacl Drug Intolerance [facility] (4 sources) Other Propensity to adverse reactions Hives [facility] (4 sources) Wound Dressing Adhesive Drug Allergy Rash [facility] (2 sources) Dexamethasone; Translations: [DEXAMETHASONE (PF)] Drug Allergy [facility] (2 sources) Sulfamethoxazole / Trimethoprim; Translations: [SULFAMETHOXAZOLE-T RIMETHOPRIM] Drug Allergy [facility] (2 sources) NITROFURANTOIN MONOHYD/M-CRYST; Translations: [NITROFURANTOIN MONOHYD/M-CRYST] Propensity to adverse reactions to drug (disorder) [facility] (2 sources) FLUTICASONE PROPION-SALMETEROL; Translations: [FLUTICASONE PROPION-SALMETEROL] Propensity to adverse reactions to drug (disorder) [facility] (6 sources) Aloe vera preparation; Translations: [SODIUM CHLORIDE-ALOE VERA] Drug Allergy [facility] (1 source) Fish - dietary; Translations: [Fish] Food allergy (disorder) [facility] Repository Medications Current Medications Medication Drug [...] Blood glucose Start Date: 10/25/21 Status: Ordered [id number] 200 actuat albuterol 0.09 mg/actuat metered dose [...] nebulizer alendronic acid 70 mg oral tablet (18 sources) Bisphosphonate Start: 2022 take 70 mg by mouth every week alendronate 70 mg, Oral, qWeek, Refills(s) 0 Start Date: 11/06/23 Status: Ordered ALPRAZolam 1 mg oral tablet (20 sources) [...] Atypical Antipsychotic Start: 11-16-2022 End: 09-26-2023 take 15 mg by mouth once daily [...] Start: 04-28-2018 take 2 tablets by mo uth at bedtime Lipitor 40 mg Tab 80 [...] day(s), # 6 tab(s), Refills(s) 0, Pharmacy: [facility] #[facility], 163, cm, 10/20/22 10:48:00 EST, Height/Length [...] day(s), # 28 cap(s), Refills(s) 0, Pharmacy: [facility], 163, cm, 10/29/22 14:56:00 EDT, Height/Length Dosing, 77.3, kg, 10/29/22 14:56:00 EDT, Weight Dosing Start Date: 10/29/22 Stop Date: 11/26/22 Status: Ordered blood-glucose meter,continuous (DEXCOM G6 IMAGING ANALYST) misc (10 sources) Start: 10-24-2022 blood-glucose meter,continuous (DEXCOM G6 IMAGING ANALYST) misc Indications: Type 2 diabetes mellitus without complication, without long-term current use of insulin ([facility]) 1 unit yearly 1 each 0 10/24/2022 Active blood-glucose sensor (DEXCOM G6 SENSOR) device (11 sources) Start: 11-01-2023 blood-glucose sensor (DEXCOM G6 SENSOR) device Indications: Type 2 diabetes mellitus without complication, without long-term current use of insulin ([facility]) 1 Unit by miscellaneous route every 10 days. 3 each 5 11/01/2023 Active Start: 03-31-2023 End: 10-30-2023 blood-glucose sensor (DEXCOM G6 SENSOR) device Indications: Type 2 diabetes mellitus without complication, without long-term current use of insulin ([facility]) 1 Unit by miscellaneous route every 10 days. 3 each 5 03/31/2023 10/30/2023 Discontinued (Reorder) Start: 03-31-2023 blood-glucose [...] BID, # 180 tab(s), Refills(s) 3, Pharmacy: [facility], 163, cm, 07/25/23 10:41:00 EST, Height/Length Dosing, 80.8, kg, 07/25/23 10:47:00 EST, Weight Dosing Start Date: 07/30/23 Status: Ordered Start: 03-06-2022 take 1 tablet by colin th twice daily carvedilol 25 mg Tab 25 mg = 1 tab(s), Oral, BID, # 180 tab(s), Refills(s) 1, Pharmacy: [facility], 162, cm, 03/06/22 10:28:00 EDT, Height/Length Dosing, 78, kg, 03/06/22 10:28:00 EDT, Weight Dosing Start Date: 03/06/22 Status: Ordered Start: 06-14-2021 End: 10-27-2022 take 12.5 mg by mouth twice daily Carvedilol Active 12.5 MG PO Twice daily June 14, 2021 12:00am cetirizine hydrochloride 10 mg oral tablet (20 sources) Histamine-1 Receptor Antagonist Start: 02-24-2015 End: 11-21-2023 take 10 mg by mouth once daily [...] same time. 0 Active Continuous Blood Gluc Middleware Architect (Dexcom G6 tool dresser) device (4 sources) Start: 10-24-2022 Continuous Blood Gluc Middleware Architect (Dexcom G6 tool dresser) device 1 UNIT YEARLY 0 10/24/2022 Active Continuous Blood Gluc Sensor (Dexcom G6 Sensor) misc (4 sources) Start: 01-21-2023 Continuous Blood Gluc Sensor (Dexcom G6 Sensor) misc USE 1 UNIT DIRECTED AND CHANGE EVERY 10 DAYS 0 01/21/2023 Active cyclobenzaprine hydrochloride 10 mg oral tablet (1 source) Muscle Relaxant Start: 11-29-2023 take 1 tablet by mouth at bedtime cyclobenzaprine 10 mg Tab 10 mg = 1 tab(s), Oral, Bedtime, Refills(s) 0 Start Date: 11/29/23 Status: Ordered diazePAM 2 mg oral tablet (3 sources) [...] hydrochloride 120 mg extended release oral capsule (17 sources) Calcium Channel Laz Start: 07-05-2023 diltiazem CD 120 mg/ 24 hours Cap-ER 120 mg = 1 cap(s), Oral, Daily, # 30 cap(s), Refills(s) 5, Pharmacy: [facility], 163, cm, 01/01/24 11:13:00 EDT, Height/Length Dosing, 75.6, kg, 12/31/23 13:01:00 EDT, Weight Dosing Start Date: 01/01/24 Status: Ordered Start: 07-05-2023 take 1 capsule by mo uth every twenty-four hours dilTIAZem CD (CARDIZEM CD) [...] Start: 10-25-2021 take 1 capsule by mo [facility] every week ergocalciferol 50,000 intl units Cap 50,000 International_Unit = 1 cap(s), Oral, qWeek, Refills(s) 0, Prophylaxis Start Date: 10/25/21 Status: Ordered Start: 06-14-2021 take 72551 ug by colin every week Ergocalciferol (Vitamin D2) Active 07279 MCG PO every week June 14, 2021 [...] day(s), # 90 tab(s), Refills(s) 0, Pharmacy: [facility], 163, cm, 10/29/22 14:56:00 EDT, Height/Length [...] within 12 hours or as directed by . 60 patch 11 07/22/2023 Active Start: 10-12-2022 Lidoderm 5% Pa tch 1 patch(es), Topical, Daily, 7 EA, Refill(s) 0, apply 12 hours on and 12 hours off daily Start Date: 10/12/22 Status: Ordered loperamide hydrochloride 2 mg oral capsule (20 sources) Opioid Agonist Start: 12-20-2022 End: 11-04-2023 take 1 capsule by mouth every twenty-four hours loperamide (IMODIUM) 2 mg capsule TAKE 2 CAPSULES BY MOUTH AFTER 1ST LOOSE STOOL AND 1 CAPSULE AFTER EACH NEXT BOWEL MOVEMENT; DO NOT EXCEED 16MG (8 CAPSULES) IN 24 HOURS 20 capsule 1 11/05/2023 Active Start: 10-29-2022 End: 11-28-2022 Imodium 2 mg oral capsule 2 mg = 1 cap(s), Oral, q6hr, PRN as needed for loose stool, not to exceed 8 capsules, or 16 mg, in 24 hours, X 30 day(s), # 120 cap(s), Refills(s) 0, Pharmacy: [facility] #[facility], 163, cm, 10/29/22 14:56:00 EDT, [...] stool, # 120 tab(s), Refills(s) 6, Pharmacy: [facility], 162, cm, 03/30/20 10:05:00 EDT, [...] mononeuropathy, without long-term current use of insulin (CMS-HCC) Take 1 tablet (500 mg total) by mouth daily with breakfast. 30 tablet 5 11/01/2023 Active Start: 05-06-2023 End: 10-30-2023 take 1 tablet by mouth once daily at breakfast metFORMIN (GLUCOPHAGE) 500 mg tablet Indications: Type 2 diabetes mellitus with diabetic mononeuropathy, without long-term current use of insulin (CMS-HCC) Take 1 tablet (500 mg total) by [...] 0, Asthma Start Date: 09/04/21 Status: Ordered [id number] lcium &mins (THERAGRAN-M) 9 mg iron-400 mcg tablet (5 sources) [id number] -c alcium &mins (THERAGRAN-M) 9 mg iron-400 [...] Start Date: 10/12/19 Status: Ordered nebulizer accessories mis (10 sources) Start: 01-25-2023 nebulizer accessories [facility] Indications: Chronic obstructive pulmonary disease, unspecified COPD type ([facility]) 1 Tube by inhal. via small vol.nebulizer route every 6 (six) months. 1 each 1 01/25/2023 Active nebulizers [facility] (10 sources) Start: 01-25-2023 nebulizers [facility] Indications: Chronic obstructive pulmonary disease, unspecified COPD type ([facility]) 1 Unit by miscellaneous route every 6 [...] Date: 09/20/22 Status: Ordered Start: 06-14-2021 take 1 capsule by mo [...] 0 Start Date: 07/10/21 Status: Ordered nystatin [id number] unt/ml topical cream (17 sources) Polyene Antifungal Start: 06-27-2023 End: 08-18-2023 apply 15 g topically twice daily nystatin (MYCOSTATIN) cream APPLY TO AFFECTED AREA VIA TOPICAL ROUTE TWICE A DAY 15 g 0 08/18/2023 Active Start: 06-18-2023 End: 08-23-2023 nystatin (Mycostatin) [id number] UNIT/ML suspension TAKE 5ML FOUR TIMES A DAY IN AM, NOON, EVENING, AND AT BEDTIME FOR 7 DAYS 0 06/18/2023 Active nystatin [id number] unt/ml / triamcinolone acetonide 1 mg/ml topical [...] day(s), # 90 tab(s), Refills(s) 0, [facility]: [facility], 163, cm, 09/14/22 13:14:00 EST, Height/Length [...] Date: 09/20/22 Status: Ordered polyethylene glycol 3350 [id number] mg / potassium chloride 1480 mg / sodium bicarbonate 5720 mg / sodium chloride 76261 mg powder for oral solution (11 sources) [...] Status: Ordered take 1 tablet by colin once daily Mirapex 1.5 MG 1 tablet [...] vomiting, # 90 tab(s), Refills(s) 0, Pharmacy: [facility], 162, cm, 05/15/22 13:20:00 EDT, Height/Length Dosing, 79, kg, 05/15/22 13:20:00 EDT, Weight Dosing Start Date: 09/05/22 Status: Ordered Start: 04-04-2020 take 1 tablet by colin th three times daily as needed for nausea promethazine 25 mg Tab 25 mg, Oral, TID, PRN as needed for nausea/vomiting, # 90 tab(s), Refills(s) 2, Pharmacy: [facility], 162, cm, 03/30/20 10:05:00 EDT, Height/Length [...] Active rimegepant 75 mg disintegrating oral tablet (20 sources) Start: 11-06-2023 take 1 tablet under [...] Daily, # 30 tab(s), Refills(s) 5, Pharmacy: [facility], 163, cm, 04/09/22 14:41:00 EDT, Height/Length [...] Onset: 3 11-12-2022 Chronic Acute myocardial infarction (13 sources) Myocardial infarction 11-16-2022 Chronic Comment on [...] 2 08-17-2015 Episodic Diabetes mellitus with complications (20 sources) Diabetic [...] (valve) prolapse] Onset: 4 06-16-2015 Chronic Hemorrhoids (20 sources) Hemorrhoids; Translations: [Unspecified hemorrhoids] Onset: 3 01-29-2023 Episodic Lymphadenitis (1 source) Generalized enlarged lymph nodes; Translations: [Generalized enlarged lymph nodes] Onset: 4 Episodic Mood disorders (20 sources) Bipolar disorder; Translations: [Depressive disorder] Onset: 1 06-16-2015 Chronic Mycoses (1 source) Candidiasis of mouth; Translations: [Candidal stomatitis] 08-16-2023 Episodic Nausea and vomiting (20 sources) Vomiting; Translations: [Nausea and vomiting] Onset: 3 11-07-2021 Episodic Osteoarthritis (20 sources) Degenerative joint disease involving multiple joints; Translations: [Osteoarthritis] Onset: 4 09-11-2018 Chronic Osteoporosis (17 sources) Osteoporosis; Translations: [Age-related osteoporosis without current pathological fracture] Onset: 3 11-16-2022 Chronic Other acquired deformities (16 sources) Contracture of joint of right ankle; Translations: [Contracture, right ankle] Onset: 3 06-06-2023 Chronic Other aftercare (1 source) Other snf (current) drug therapy; Translations: [OTH PRISON CURRENT DRUG THERAPY] Onset: 3 Episodic Other aftercare (4 sources) Encounter for change or removal of surgical wound dressing; Translations: [ENC CHG/REMOVAL SURG WOUND DRSG] Onset: 3 Episodic Other and ill-defined heart disease (6 sources) Diastolic dysfunction; Translations: [Heart disease, unspecified] Chronic Other and ill-defined heart disease (3 sources) Heart disease, unspecified Chronic Other and unspecified benign neoplasm (20 sources) [...] Episodic Other diseases of bladder and urethra (2 sources) Detrusor overactivity; Translations: [Overactive bladder] Onset: 4 Chronic Other diseases of bladder and urethra (10 sources) Overactive bladder; Translations: [Overactive bladder] Onset: 4 09-17-2023 Chronic Other diseases of bladder and [...] abnormalities] Onset: 3 Episodic Other gastrointestinal disorders (20 sources) Loose stool; Translations: [Other fecal abnormalities] Onset: 3 09-14-2022 Episodic Other gastrointestinal disorders (12 sources) Incontinence of feces; Translations: [Full incontinence [...] Onset: 3 Chronic Other nervous system disorders (2 sources) Other chronic pain; Translations: [OTHER CHRONIC PAIN] Onset: 0 Chronic Other nervous system disorders (14 sources) [...] organs] Onset: 3 Episodic Residual codes; unclassified (20 sources) Family history of colorectal cancer; Translations: [Family history of malignant neoplasm of digestive organs] Onset: 3 09-14-2022 Episodic Residual codes; unclassified (17 sources) Menopause present; Translations: [Asymptomatic menopausal state] [...] malignant neoplasm of respiratory organs] Onset: 3 Unclassified (1 source) Pain medication/ discharged from pain magement. Onset: 4 Unclassified (1 source) Pre-op Exam Onset: 4 Urinary tract infections (1 source) Urinary tract infectious disease; Translations: [Urinary tract infection, site not specified] Onset: 3 Episodic Past or Other Problems Problem Classification Problem Date Documented Da te Episodic/Chronic Cardiac dysrhythmias (1 source) Tachycardia, unspecified; Translations: [TACHYCARDIA UNSPECIFIED] Onset: 2 Episodic Diseases of mouth; excluding dental (20 sources) Hypertrophy of parotid gland; Translations: [Hypertrophy of salivary gland] Onset: 1 12-14-2020 Episodic Fluid and electrolyte disorders (14 sources) Hyponatremia; Translations: [Hypo-osmolality and hyponatremia] Onset: 3 11-12-2022 Episodic Fracture of upper limb (2 sources) Displaced fracture of coracoid process, right shoulder, subsequent encounter for fracture with nonunion; Translations: [3-part fracture of surgical neck of right humerus, subsequent encounter for fracture with routine healing] Onset: 2 Episodic Headache; including migraine (14 sources) Headache; [...] 05-21-2022 Episodic Other gastrointestinal disorders (20 sources) Altered [...] Name Value Interpretation Reference Range Facil ity Interdisciplinary Note - Soc ial Workeron 01-06-2024 Interdisciplinary Note - Transportation Solutions Manager Consult for positive depression screen received. SW made a tc to patient and left a message with contact information for patient to call back. SW will remain available. [facility] Consent for Treatmenton 12-17 Consent for Treatment [id number] F [facility] Consultation Noteon 01-01-20 Consultation Note Patient: JESSIE HERRERA Age: 53 years Sex: Female : 1970 Associated Diagnoses: None Author: Cady Alva PA-C Subjective Chief complaint 01/01/2024 11:04 EDT lower back pain 12/31/2023 12:53 EDT 3 month follow up for vesicare . Patient is a 53-year-old female with a past medical history significant for lumbar stenosis, lumbar neuritis, neck pain, cervical neuritis and fibromyalgia. In regards to her lumbar stenosis and lumbar neuritis she underwent recent L4-5 epidural steroid injection done on 12/07/2023 that she states did not give her any relief. [facility] She is going to get his opinion as she continues to have lower back pain with bilateral radiating leg pain. In regards to her neck pain and cervical neuritis she was recommended to start physical therapy. She did not because her car was broken. She is planning to start here in the near future but she has not yet done so. She would like another requisition for this. In regards to medications we discussed some other potential medication options as she is allergic to amitriptyline, codeine, Cymbalta, methadone, Mobic, gabapentin, Lyrica, Topamax, Toradol, Trileptal, amitriptyline, Effexor, and a multitude of medications that we try to utilize to help with fibromyalgia pain. We discussed baclofen, methocarbamol and Flexeril and she states that all of them made her throw up. At this time, and per a previous phone conversation at this time we do not have any other medication for the offer to her. We discussed a second opinion but at this time, she does not want to do so. She wants to see the surgeon and get enrolled in the therapy for the neck and arm pain. Health Status Allergies: Allergic Reactions (Selected) Moderate [...] Toradol- Unknown. Trileptal- Unknown. Wellbutrin- Palpitations. Ziprasidone- Unknown., Allergies (36) Active Severity Reaction Neurontin Moderate Unknown Advair HFA Rash amitriptyline Vomiting Augmentin Vomiting Avelox Rash codeine Rash Decadron Hot flashes doxycycline Palpitations shellfish Rash Geodon Palpitations Lyrica Unknown penicillins Unknown Strattera Palpitations Tape Rash Toradol Unknown Wellbutrin Palpitations Bactrim DS Vomiting Depakote Alopecia ibuprofen Rash Requip Altered mental status Calan Vomiting methadone Vomiting Topamax Vomiting Trileptal Unknown Savella Unknown Mobic Unknown Cymbalta Unknown Paxil Unknown fluticasone Unknown amoxicillin Hives pregabalin Palpitations Calan Palpitations ziprasidone Unknown dexamethasone Hot flashes Macrobid unknown Robaxin Unknown Current medications: (Selected) Prescriptions Prescribed Imodium A-D 2 mg oral tablet: See Instructions, PRN Diarrhea, 2 mg Oral BID and 2mg after each loose stool, # 120 tab(s), Refills(s) 6, Pharmacy: [facility], 162, cm, 03/30/20 10:05:00 EDT, Height/Length Dosing, 74.2, kg, 03/30/20 10:05:00 EDT, Weight Dosing carvedilol 25 mg Tab: 25 mg = 1 tab(s), Oral, BID, # 180 tab(s), Refills(s) 3, Pharmacy: [facility], 163, cm, 07/25/23 10:41:00 EST, Height/Length Dosing, 80.8, kg, 07/25/23 10:47:00 EST, Weight Dosing diltiazem CD 120 mg/24 hours Cap-ER: 120 mg = 1 cap(s), Oral, Daily, # 30 cap(s), Refills(s) 5, Pharmacy: [facility], 163, cm, 07/05/23 15:45:00 EST, Height/Length Dosing, 81.9, kg, 07/05/23 15:49:00 EST, Weight Dosing Documented Medications Documented Abilify: 15 mg, Oral, Daily Ajovy Autoinjector 225 mg/1.5 mL subcutaneous solution: 225 mg, SubCutaneous, qMonth, Refills(s) 0, Migraine headache Calcium 600+D: 600 / 400 mg, Oral, Daily, Refill(s) 0, Prophylaxis Lasix: 20 mg, Oral, Daily, Refills(s) 0, diuretic/water pill Lipitor 40 mg Tab: 80 mg = 2 tab(s), Oral, Bedtime, Refills(s) 0, High cholesterol Nurtec ODT 75 mg oral tablet, disintegratin mg = 1 tab(s), SubLingual, q24hr, Refills(s) 0 Nurtec ODT: 75 mg, Oral, q24hr, PRN as needed for migraine headache, Refills(s) 0 Ventolin HFA 90 mcg/inh Aerosol: 2 puff(s), Inhalation, QID Shortness of breath or wheezing, Refill(s) 0, COPD Vitamin B1 100 mg Tab: 100 mg = 1 tab(s), Oral, Daily, Refills(s) 0 (more content not included)... [facility] Comment on above: Result Comment: Elec tronically Signed By: Artie NORRIS, Cady\.br\Date and Time Signed: 01/01/24 11:24 EDT Lab Reportson 01-01-2024 Lab Reports [id number]#[id number] [facility] Office/Clinic Note-Physician on 01-01-2024 Office/Clinic Note-Physician [id number]#[id number] [facility] Orders Officeon 01-01-2024 Orders Office [id number]#1.00TIFF Normal [facility] Patient Correspondenceon Patient Correspondence [id number]#1.00TIFF [facility] Patient Correspondence [id number]#1.00TIFF Normal [facility] Patient History Officeon Patient History Office [id number]#1.00TIFF [facility] RAD - CT Reporton 01-01-2024 RAD - CT Report [id number]#1.00TIFF [facility] Ambulatory Visit Summaryon 0 12-31-2023 Ambulatory Visit Summary SHARONKETURAH :1970 Visit Date:12/31/2023 Ambulatory Visit Instructions Your Diagnosis Mixed incontinence urge and stress Fecal incontinence OAB (overactive bladder) Gross hematuria Kidney stones Your Care Team Attending Physician - POLLY MARIANO PA-C Primary Care Physician - ROBERT GIRON DO This Is Your Medications List solifenacin (Vesicare 10 mg Tab) Contact prescribing physician if questions or concerns albuterol (Ventolin HFA 90 mcg/inh Aerosol) alendronate alprazolam (Xanax) aripiprazole (Abilify) atorvastatin (Lipitor 40 mg Tab) calcium-vitamin D (Calcium 600+D) carvedilol (carvedilol 25 mg Tab) cetirizine (Zyrtec) cyclobenzaprine (cyclobenzaprine 10 mg Tab) diltiazem (diltiazem CD 120 mg/24 hours Cap-ER) ergocalciferol (Vitamin D 50,000 intl units (1.25 mg) oral capsule) fremanezumab (Ajovy Autoinjector 225 mg/1.5 mL subcutaneous solution) furosemide (Lasix) loperamide (Imodium A-D 2 mg oral tablet) meclizine montelukast (montelukast 10 mg Tab) nortriptyline (nortriptyline 25 mg Cap) omeprazole rimegepant (Nurtec ODT 75 mg oral tablet, disintegrating) rimegepant (Nurtec ODT) thiamine (Vitamin B1 100 [...] nerve decompression. Discharge Vitals Heart Rate (Peripheral) 57 Respiratory Rate 16 Blood Pressure 117/65 Height 163 cm Height 64 in Weight 75.6 kg Weight 166.32 lb BMI 28.45 What to do next Scheduled Follow-Up Appointments Saturday. 2023 11:00 AM EDT With: Cady Alva PA-C Where: [facility] [place] Saturday 1:00 PM EDT With: POLLY MARIANO PA-C Where: [facility] Patient Education 12-31-19 Patient Education Urology Urinary Incontinence Urinary incontinence refers to a condition in which a person is unable to control where and when to pass urine. A person with this condition will urinate involuntarily. This means that the person urinates when he or she does not mean to. What are the causes? This condition may be caused by: ? Medicines. ? Infections. ? Constipation. ? Overactive bladder muscles. ? Weak bladder muscles. ? Weak pelvic floor muscles. These muscles provide support for the bladder, intestine, and, in women, the uterus. ? Enlarged prostate in men. The prostate is a gland near the bladder. When it gets too big, it can pinch the urethra. With the urethra blocked, the bladder can weaken and lose the ability to empty properly. ? Surgery. ? Emotional factors, such as anxiety, stress, or post-traumatic stress disorder (PTSD). ? Spinal cord injury, nerve injury, or other neurological conditions. ? Pelvic organ prolapse. This happens in women when organs move out of place and into the vagina. This movement can prevent the bladder and urethra from working properly. What increases the risk? The following factors may make you more likely to develop this condition: ? Age. The older you are, the higher the risk. ? Obesity. ? Being physically inactive. ? and childbirth. ? Menopause. ? Diseases that affect the nerves or spinal cord. ? Long-term, or chronic, coughing. This can increase pressure on the bladder and pelvic floor muscles. What are the signs or symptoms? Symptoms may vary depending on the type of urinary incontinence you have. They include: ? A sudden urge to urinate, and passing urine involuntarily before you can get to a bathroom (urge incontinence). ? Suddenly passing urine when doing activities that force urine to pass, such as coughing, laughing, exercising, or sneezing (stress incontinence). ? Needing to urinate often but urinating only a small amount, or constantly dribbling urine (overflow incontinence). ? Urinating because you cannot get to the bathroom in time due to a physical disability, such as arthritis or injury, or due to a communication or thinking problem, such as Alzheimer's disease (functional incontinence). How is this diagnosed? This condition may be diagnosed based on: ? Your medical history. ? A physical exam. ? Tests, such as: ? Urine tests. ? X-rays of your kidney and bladder. ? Ultrasound. ? CT scan. ? Cystoscopy. In this procedure, a health care provider inserts a tube with a light and camera (cystoscope) through the urethra and into the bladder to check for problems. ? Urodynamic testing. These tests assess how well the bladder, urethra, and sphincter can store and release urine. There are different types of urodynamic tests, and they vary depending on what the test is measuring. To help diagnose your condition, your health care provider may recommend that you keep a log of when you urinate and how much you urinate. How is this treated? Treatment for this condition depends on the type of incontinence that you have and its cause. Treatment may include: ? Lifestyle changes, such as: ? Quitting smoking. ? Maintaining a healthy weight. ? Staying active. Try to get 150 minutes of moderate-intensity exercise every week. Ask your health care provider which activities are safe for you. ? Eating a healthy diet. ? Avoid high-fat foods, like fried foods. ? Avoid refined carbohydrates like white bread and white rice. ? Limit how much alcohol and caffeine you drink. ? Increase your fiber intake. Healthy sources of fiber include beans, whole grains, and fresh fruits and vegetables. ? Behavioral changes, such as: ? Pelvic floor muscle exercises. ? Bladder training, such as lengthening the amount of time between bathroom breaks, or using the bathroom at regular intervals. ? Using techniques to suppress bladder urges. This can include distraction techniques or controlled breathing exercises. ? Medicines, such as: ? Medicines to relax the bladder muscles and prevent bladder spasms. ? Medicines to help slow or prevent the growth of a man's prostate. ? Botox injections. These can help relax the bladder muscles. ? Treatments, such as: ? Using pulses of electricity to help change bladder reflexes (electrical nerve stimulation). ? For women, using a medical advisor to prevent urine leaks. This is a small, tampon-like, disposable device that is inserted into the urethra. ? Injecting collagen or carbon beads (bulking agents) into the urinary sphincter. These can help thicken tissue and close the bladder opening. ? Surgery. Follow these instructions at home: Lifestyle ? Limit alcohol and caffeine. These can fill your bladder quickly and irritate it. ? Keep yourself clean to help prevent odors and skin damage. Ask your health care provider about special skin creams and cleansers that can protect the skin from urine. ? (more content not included)... [facility] Urology Office/Clinic Noteon 12-31-2023 Urology Office/Clinic Note Chief Complaint 3 month follow up for vesicare HPI Staff PRW pt 3m to restarting VESIcare 10mg qd therapy DX: Mixed incontinence, Fecal incontinence, OAB, gross hematuria & Kidney Stone CT ap w 12/01/23 *NEG Urology (done at ER *back pain) NEG UA 12/01/23 CMP 12/01/23 *BUN 3.0 Crea 1.6 eGFR 54 (No updated A1C on [facility]) denies hematuria, dysuria Has been out of vesicare for a month; without it has been having the mixed incontinence and would like vesicare refilled because it helped her. History of Present Illness staff HPI reviewed and agree. Review of Systems PHQ Score Initial Depression Screen Score: 4 SCORE Detailed Depression Screen Score: 9 Total Depression Screen Score: 13 no fever, chills, malaise, myalgia. no rash/lesions. no chest pain, palpitations, or SOB. no abdominal pain, nausea, vomiting. no unilateral calf swelling, redness, pain Physical Exam Vitals & Measurements HR: 57(Peripheral) RR: 16 BP: 117/65 HT: 64 in HT: 163 cm WT: 75.6 kg WT: 166.32 lb BMI: 28.45 General: nontoxic, NAD Mouth: moist mucosa Lungs: normal respiratory effort Cardio: regular rate, good distal perfusion Abdomen: nondistended, no suprapubic distention or tenderness, no CVA tenderness Neurologic: Grossly normal Skin: No rashes or suspicious lesions Assessment/Plan PRW pt. BUN 3.0, Cr 1.06, eGFR 54 12/01/23. No updated A1c on [facility]. 1. Mixed incontinence urge and stress (N39.46: Mixed incontinence) BBS 16 (19) UUI > SOPHIA Failed Oxybutynin 5 mg due to N&V. Botox was cx'd in the past due to complications with insurance coverage. Restarted VESIcare 10mg at last visit. Reports she has been out of the medication for a month. Does notice a difference without taking, and wishes for a refill. Refill sent to [facility]. -Cont VESIcare as directed -Follow up in 1 year 2. Fecal incontinence (R15.9: Full incontinence of feces) Hx of IBS. Continues having complications with diarrhea and fecal incontinence. Follows with PCP. Used to follow with Dr. Cramer, but he has since retired. 3. OAB (overactive bladder) (N32.81: Overactive bladder) See #1. 4. Gross hematuria (R31.0: Gross hematuria) S/p Cysto 05/16/21. Smoker. Increased risk for urothelial ca. Denies recurrence of gross hematuria. No UA provided today. Most likely dehydration. Discussed repeating hematuria workup at last visit, but we decided to hold off. Pt knows to call with visible blood in her urine, and workup would be indicated at that time. -Call w/ gross hematuria 5. Kidney stones (N20.0: Calculus of kidney) S/p lithotripsy 06/06/15. 24hr urine 10/25/19 done for unrelated reason (ordered by external provider): Total volume 2,525mL. CT AP wo con 10/20/22 [facility] - A few tiny nonobstructing R renal calculi. No hydro. CT AP w IV con 12/01/23 [facility] [ordered at the ER for vomiting and back pain] - shows a few scattered subcentimeter 3-4 minor cystic structures of the bilateral renal cortices are too small to characterize and are similar to CT 05/30/2021. Neg for stones or hydro. Follow-up With When Contact Information YUDY NORRIS, POLLY Kaminski, URL [address] [place] [address] Additional Instructions: 1 year Patient Education Urinary Incontinence Documentation recorded by the shailesh Bangura accurately reflects the services(s) I performed and decisions made by me. Authenticated by Polly Mariano PA-C on 12/31/2023 13:21:05. I, Violet Bangura, personally scribed for Ileana Mariano PA-C on 12/31/2023 13:14:13. . Problem List/Past Medical History Ongoing Anxiety BMI 30.0-30.9,adult Change in bowel habits Colon polyp Depression Dysuria Esophageal spasm Family history of colorectal cancer Fecal incontinence Feeling of incomplete bladder emptying Flank pain Foreign body in stomach, sequela Gastric bezoar Gastric erosions GERD (gastroesophageal reflux disease) Gross hematuria Hemorrhoids History of kidney stones History of UTI Incomplete emptying of bladder Irritable bowel syndrome with diarrhea Kidney stones Loose stools Menopause Mixed incontinence urge and stress Nausea and vomiting Nocturia OAB (overactive bladder) Osteoporosis Other urethral stricture, female Pinched nerve [...] stress disorder (PTSD) Procedure/Surgical History Colonoscopy (01/17/2023), Víctor (more content not included)... [facility] Comment on above: Result Comment: Elec tronically Signed By: POLLY MARIANO PA-C\.br\Date and Time Signed: 12/31/23 13:21 EDT\.br\Electronically Co-Signed By: Violet Bangura\.br\Date and Time Co-Signed: 12/31/23 13:14 EDT CHEMISTRYOrdered By: Lab ROP User on 12-11-2023 Glucose [Mass/Vol] 154 mg/dL High 55 - 99 mg/dL FTM C POC Subsection POC Device SN [id number] Invalid Interpretation Code [facility] POC Subsection POC User ID [id number] 1 Invalid Interpretation Code [facility] POC Subsection POC Username FREDIS WEBSTER Invalid Interpretation Code [facility] POC Subsection Capillary Glucose POCon 11-18 Glucose [Mass/Vol] 154 mg/dL High 55-99 [facility] Comment on above: Performed By: #### [id number] ####[facility] [id number] [place] [address] Consent for Procedure/Surger yon 12-11-2023 Consent for Procedure/Surgery [id number]#1.00TIFF Normal [facility] Consent for Treatmenton 11-18 Consent for Treatment [id number]#1.00TIFF [facility] Discharge Instructionson Discharge Instructions [id number]#1.00TIFF Normal [facility] IntraOperative Documentson 0 12-11-2023 IntraOperative Documents [id number]#1.00TIFF Normal [facility] IntraOperative Documents [id number]#1.00TIFF [facility] Main OR Intraoperative Recor don 12-11-2023 Main OR Intraoperative Record IntraOp Document Type FTPM Summary Primary Physician: Andrew Eid DO Finalized Date/Time: 12/11/23 09:27:33 Pt. Name: KETURAH HERRERA.O.B./Sex: 1970 Female Med Rec #: [id number] Physician: Andrew Eid DO Financial #: [id number] Pt. Type: P Room/Bed: / Admit/Disch: 12/11/23 08:00:11 - Institution: Case Times FTPM Entry 1 Patient Times In Room 12/11/23 09:21:00 Out Room 12/11/23 09:28:00 Procedure Times Start 12/11/23 09:24:00 Stop 12/11/23 09:27:00 Anesthesia Times Last Modified By: Teressa Dennison RN 12/11/23 09:27:22 Case Attendance FTPM Entry 1 Entry 2 Entry 3 Case Attendee Andrew Eid DO, RN, Teressa Jones RN, Katherine Jerome Role Performed Surgeon - Primary Corporate Strategist - Primary Scrub - Primary Time In 12/11/23 09:21:00 12/11/23 09:21:00 12/11/23 09:21:00 Time Out 12/11/23 09:28:00 12/11/23 09:28:00 12/11/23 09:28:00 Procedure LUMBAR EPIDURAL STEROID LUMBAR EPIDURAL STEROID LUMBAR EPIDURAL STEROID INJECTION(.) INJECTION(.) INJECTION(.) Comments Last Modified By: Juma LAZO, Teressa Dennison RN, Teressa Joyce RN 12/11/23 09:27:22 12/11/23 09:27:22 12/11/23 09:27:22 Entry 4 Case Attendee Gen Lazo Role Performed Real Estate Instructor Time In 12/11/23 09:21:00 Time Out 12/11/23 09:28:00 Procedure LUMBAR EPIDURAL STEROID INJECTION(.) Comments Last Modified By: Teressa Dennison RN 12/11/23 09:27:22 Perioperative Protocols FTPM Pre-Care Text: Implements protective measures prior to operative or invasive procedure, confirms identity before the operative or invasive procedure, verifies operative procedure, surgical site, and laterality Entry 1 Procedure(s) LUMBAR EPIDURAL STEROID Patient Identity Birthday, ID Band INJECTION(.) Verified (select at Check, Patient least 2): Participation Consents / H and P HandP, Surgery/Procedure Operative Site Present Verified Consent Marking Verified Surgical Site Yes Laterality Verified Yes Verified Procedure Verified Yes Correct Patient Yes Position Verified Availability Equipment, Medication, Prep Dry Yes Verified (If X-ray Applicable) PreOp Antibiotic No Time Out Teressa Dennison RN, Given Participants Robert LAZO, Eli Hunter DO, Bradford A., Gen Lazo Time Out Complete 12/11/23 09:22:00 Outcomes Met? Yes Last Modified By: Teressa Dennison RN 12/11/23 09:23:36 Post-Care Text: The patient is free from signs and symptoms of injury caused by extraneous objects Allergy Information FTPM Pre-Care Text: Verifies allergies Entry 1 Allergies Reviewed? Yes Allergies Reviewed Self/Patient With Outcomes Met? Yes Last Modified By: Teressa Dennison RN 12/11/23 09:23:45 Post-Care Text: The patient received appropriate medication(s) safely administered during the perioperative period Surgical Procedures FTPM Entry 1 Procedure Description Procedure LUMBAR EPIDURAL STEROID Modifiers . INJECTION Surgeon Description L4-5 JAELYN Primary Procedure Yes Primary Surgeon Andrew Eid DO Start 12/11/23 09:24:00 Stop 12/11/23 09:27:00 Anesthesia Type None Surgical Service Pain Management Wound Class 1 - Clean Last Modified By: Teressa Dennison RN 12/11/23 09:27:30 General Case Data FTPM Pre-Care Text: Classifies surgical wound, implements aseptic technique, initiates traffic control Entry 1 Case Information OR Pain Proc Room Case Level Level 2 Wound Class 1 - Clean Specialty Pain Management Preop Diagnosis M54.16 Postop Same As Preop Yes Postop Diagnosis M54.16 Outcomes Met? Yes Last Modified By: Teressa Dennison RN 12/11/23 09:23:53 Post-Care Text: The patient is free from signs and symptoms of infection Skin Assessment (Pre Procedure) FTPM Pre-Care Text: Implements protective measures to prevent skin/ tissue injury due to thermal or mechanical sources Evaluates for signs and symptoms of physical injury to skin and tissue Entry 1 Skin Integrity Intact, Hershey, Warm, and Skin Abnormality No Dry Outcomes Met? Yes Last Modified By: Teressa Dennison RN 12/11/23 09:24:01 Post-Care Text: The patient is free from signs and symptoms of injury caused by extraneous objects Patient Positioning FTPM Pre-Care Text: Identifies physical alterations that require additional precautions for procedure-specific positioning, verifies presence of prosthetics or corrective devices, positions the patient, evaluates the patient for signs and symptoms of injury as a result of positioning Entry 1 Procedure LUMBAR EPIDURAL STEROID Body Position Prone INJECTION(.) Feet Uncrossed? Yes Left Arm Position Resting at Side Right Arm Position Resting at Side Left Leg Position Extended Right Leg Position Extended Positioning Device Pillow Under Head Large, Safety Strap, Pillow Large Under Knees Press Points Checked Yes By Teressa Dennison RN Outcomes Met? Yes Last Modified By: Juma Moreira (more content not included)... Normal [facility] Main OR Preoperative Recordo n 12-11-2023 Main OR Preoperative Record Holding Area Document Type FTPM Summary Primary Physician: Andrew Eid DO Finalized Date/Time: 12/11/23 08:39:56 Pt. Name: KETURAH HERRERA/Sex: 1970 Female Med Rec #: [id number] Physician: Andrew Eid DO Financial #: [id number] Pt. Type: P Room/Bed: / Admit/Disch: 12/11/23 08:00:11 - Institution: Case Times Holding FTPM Pre-Care Text: Verifies consent for planned procedure, identifies individual values and wishes concerning care, includes family members in perioperative teaching Secures patient's records' belongings, and valuables, maintains patient's dignity and privacy, and maintains patient confidentiality Entry 1 In Holding 12/11/23 08:38:00 Outcomes Met? Yes Last Modified By: Odette Quintana RN 12/11/23 08:38:26 Post-Care Text: The patient participates in decisions affecting his or her perioperative plan of care The patient's right to privacy is maintained Surgery Checklist FTPM Entry 1 Patient Birthday, ID Band Procedure History and Physical, Identification: Check, Patient Verification: Surgical Consent, With Participation Patient NPO after Midnight: No Date/Time: 12/11/23 07:00:00 Personal Items: Cataract Lens Implant Complaints of Pain: Yes Pain Comment: 05/28 low back Marked By: eli Location: lumbar Availability Equipment, X-Ray Verified: Does Patient Smoke Yes If Yes to Smoking. 1pk Cigars or Cigarettes. How much per day? Patient states Yes Comment - Adult jame neighbor postop adult Supervision supervision available Case Cancelled in No Holding Area see comments below for reason Last Modified By: Odette Quintana RN 12/11/23 08:39:52 Finalized By: Odette Quintana RN Document Signatures Signed By: Odette Qunitana RN 12/11/23 08:39 Normal [facility] Patient Correspondenceon Patient Correspondence [id number]#1.00TIFF Normal [facility] Orders Officeon 11-22-2023 Orders Office [id number]#1.00TIFF Normal [facility] Insurance Correspondence Off iceon 11-21-2023 Insurance Correspondence Office [id number]#2.00TIFF Normal [facility] Outside Records Officeon Outside Records Office [id number]#1.00TIFF Normal [facility] Consent for Treatmenton 10-18 Consent for Treatment [id number]#1.00TIFF [facility] Consultation Noteon 11-06-19 Consultation Note Patient: [...] options. She has undergone physical therapy at [facility] with out improvement. In fact, she feels [...] MVP (mitral valve prolapse) / SNOMED CT 8527157119 / Confirmed Bipolar disorder / SNOMED CT 09631980 / Confirmed COPD (chronic obstructive pulmonary disease) / SNOMED CT 21421056 / Confirmed Vertigo / SNOMED CT 0488632545 / Confirmed Chronic pain / SNOMED CT 293025524 / Confirmed Osteoarthritis / SNOMED CT 1387054235 / Confirmed Hyperlipidemia / SNOMED CT 34828557 / Confirmed Chronic migraine / SNOMED CT 06289345 / Confirmed Sleep apnea / SNOMED CT 657075370 / Confirmed pt uses CPAP does not use cpap any longer Gastritis / SNOMED CT 4082401 / Confirmed Irritable bowel syndrome / SNOMED CT 74316342 / Confirmed Hypertension / SNOMED CT 9895666992 / Confirmed Dizziness / SNOMED CT 6560205406 / Confirmed Tarsal tunnel syndrome of left side / SNOMED CT 33465029 / Confirmed Diabetes / SNOMED CT 596324110 / Confirmed Personality disorder / SNOMED CT 17297329 / Confirmed TMJ arthralgia / SNOMED CT 670421742 / Confirmed Smoker / SNOMED CT Z662YF0A-6871-48Y5-5607-L [id number] / Confirmed Added secondary to documentation in Social History. GERD (gastroesophageal reflux disease) / SNOMED CT 685661727 / Confirmed History of kidney stones / SNOMED CT 5258063470 / Confirmed Mixed incontinence urge and stress / SNOMED CT 52910084 / Confirmed Urinary frequency / SNOMED CT 320332580 / Confirmed Other urethral stricture, female / SNOMED CT 044726624 / Confirmed Incomplete emptying of bladder / SNOMED CT 070811920 / Confirmed Feeling of incomplete bladder emptying / SNOMED CT 806774053 / Confirmed Urge incontinence / SNOMED CT 539565121 / Confirmed Dysuria / SNOMED CT 72108415 / Confirmed Change in bowel habits / SNOMED CT 60520158 (more content not included)... [facility] Comment on above: Result Comment: Elec tronically Signed By: Cady Alva PA-C\.br\Date and Time Signed: 11/06/23 10:24 EDT\.br\Electronically Co-Signed By: Andrew Eid DO.br\Date and Time Co-Signed: 11/06/23 15:19 EDT HIPAA Forms Officeon 024 HIPAA Forms Office [id number]#1.00TIFF [facility] Legal Correspondence Officeo n 11-06-2023 Legal Correspondence Office [id number]#1.00TIFF Normal [facility] Legal Correspondence Office [id number]#1.00TIFF Normal [facility] Office/Clinic Note-Physician on 11-06-2023 Office/Clinic Note-Physician [id number]#1.00TIFF Normal [facility] Patient Correspondenceon Patient Correspondence [id number]#1.00TIFF Normal [facility] Patient Correspondence [id number]#1.00TIFF Normal [facility] Patient Correspondence [id number]#1.00TIFF [facility] Patient Correspondence [id number]#1.00TIFF [facility] Patient Correspondence [id number]#1.00TIFF Normal [facility] Patient History Officeon Patient History Office [id number]#1.00TIFF [facility] Patient History Office [id number]#1.00TIFF Normal [facility] Physician Orderon 11-06-2023 Physician Order [id number]#1.00TIFF Normal [facility] Radiology Outside Office Yarn Sizer yon 11-06-2023 Radiology Outside Office Copy [id number]#1.00TIFF Normal [facility] Outside Records Officeon Outside Records Office [id number]#1.00TIFF [facility] Referrals Officeon Referrals Office [id number]#1.00TIFF [facility] Event Monitoron 10-01-2023 Event Monitor [id number]#1.00TIFF [facility] Formson 10-01-2023 Forms [id number]#1.00TIFF [facility] Screenson 09-18-2023 Screens [id number]#1.00TIFF [facility] Ambulatory Visit Summaryon 0 09-17-2023 Ambulatory Visit Summary KETURAH HERRERA :1970 Visit Date:09/17/2023 Ambulatory Visit Instructions Your Diagnosis OAB (overactive bladder) Mixed incontinence urge and stress Gross hematuria Kidney stones History of kidney stones History of UTI Fecal incontinence Your Care Team Attending Physician - POLLY MARIANO PA-C Primary Care Physician - ROBERT GIRON [...] Appointments Saturday. 2023 1:00 PM EDT With: POLLY MARIANO PA-C Where: [facility] [place] [facility] Patient Educationon 09-17-19 24 Patient Education [...] these instructions at home: Medicines ? Take rnql-wsz-qpsojfk and prescription medicines only as told by [...] the blood stops without treatment. ? Take lyxy-whd-eyccasv and prescription medicines only as told by your health care provider. ? Drink enough fluid to keep your urine pale yellow. This information is not intended to replace advice given to you by your health care provider. Make sure you discuss any questions you have with your health care provider. Document Revised: 04/05/2021 Document Reviewed: 04/05/2021 [employer] Patient Education ? 2022 [employer] [facility] Retail - Clinical Noteon Retail - Clinical Note [id number]#1.00TIFF [facility] Retail - Clinical Note [id number]#1.00TIFF [facility] Urology Office/Clinic Noteon 09-17-2023 Urology Office/Clinic [...] to her (unsure if refill ran out?) [facility] ER 10/20/22 CC: flank [...] is 6.2. -Begin VESIcare. Rx sent to [facility]. f/u 3 mos to ensure working well. -Supply order provided for pads/incontinence supplies Ordered: E&M of Est. Patient Moderate 30-39 Min 47276 Urnls Dip Stick Auto w/o Microscopy POC 85980 2. Fecal incontinence (R15.9: Full incontinence of feces) Hx of IBS. Continues having complications with diarrhea and fecal incontinence follows with PCP used to follow with Dr. Bela CAZARES but he retired Ordered: E&M of Est. Patient Moderate 30-39 Min 97200 3. OAB (overactive bladder) (N32.81: Overactive bladder) see #1 Ordered: E&M of Est. Patient Moderate 30-39 Min 46860 4. Gross hematuria (R31.0: Gross hematuria) S/p [...] E&M of Est. Patient Moderate 30-39 Min 78609 5. Kidney stones (N20.0: Calculus of kidney) S/p lithotripsy 06/06/15. 24hr urine 10/25/19 done for unrelated reason (ordered by external provider): Total volume 2,525mL. CT AP wo con 10/20/22 [facility] - A few tiny [...] E&M of Est. Patient Moderate 30-39 Min 59364 Orders: solifenacin, 10 mg = 1 tab(s), Oral, Daily, # 90 tab(s), Refills(s) 3, Pharmacy: [facility], 163, cm, 09/17/23 8:25:00 EST, Height/Length Dosing, 81, kg, 09/17/23 8:25:00 EST, Weight Dosing Follow-up With When Contact Information POLLY MARIANO PA-C, URL [address] [address] [phone] Additional Instructions: 3 mos (restart med) Patient Education Hematuria, Adult Documentation record (more content not included)... [facility] Comment on above: Result Comment: Elec tronically Signed By: POLLY MARIANO PA-C\.br\Date and Time Signed: 09/17/23 09:07 EST\.br\Electronically Co-Signed By: Deisy Simon\.br\Date and Time Co-Signed: 09/17/23 09:00 EST Consent for Treatmenton - Consent for Treatment [id number]#1.00TIFF Normal [facility] Heart and Vascular Office/Cl inic Noteon [...] palpitations and chest pain and went to [facility] for evaluation. He then saw Cady on [...] disease) Hemorrhoids (more content not included)... [facility] Comment on above: Result Comment: Elec tronically Signed By: WILL WALSH, Elliott Russell.rosi\Date and Time Signed: 07/25/23 10:57 EST Physician Orderon 07-25-2023 Physician Order [id number]#1.00TIFF Normal [facility] Heart and [...] cardiac clearance. Apparently she had gone to [facility] ER for SVT. She was ordered an event monitor and echocardiogram. Insurance has denied her echocardiogram. She had essentially normal echo in 2020. She had a cath with Dr. Beltran in 2019 with normal coronary arteries. She had her foot surgery without event. Here today now for another [facility] ER visit. She had chest pain and [...] 4. Normal estimated pulmonary artery pressure. [2] [facility] 03/03/2020 CONCLUSIONS: 1. Essentially normal coronary arteriograms. 2. Noncardiac chest pain. [3] Assessment/Plan 1. Palpitations (R00.2: Palpitations) Will add diltiazem 120 mg daily to her carvedilol 25 mg twice daily. We [facility]need to review EKG that had questionable atrial flutter if this is the case she would need to be anticoagulated. She will follow-up with Dr. Solis as previously scheduled to review results of event monitor. Portions of this record may have been created with voice recognition artificial intelligence software, specifically [employer], [employer] and or [employer]. Substitutions may have occurred due to the inherent limitations of voice recognition and artificial intelligence software. Follow-up With When Contact Information WILL WALSH, [place] [address] [phone] Additional Instructions: Follow up post event Problem [...] Excision of Downey's (more content not included)... [facility] Comment on above: Result Comment: Elec tronically Signed By: Cady CALIX CNP\.br\Date and Time Signed: 07/18/23 14:27 EST Outside Recordson 07-08-2023 Outside Records [id number]#1.00TIFF [facility] Physician Orderon 07-05-2023 Physician Order [id number]#1.00TIFF [facility] Consent for Treatmenton 05-20 Consent for Treatment [id number]#1.00TIFF [facility] Retail - Clinical Noteon Retail - Clinical Note [id number]#1.00TIFF [facility] Insurance Correspondenceon 1 Insurance Correspondence [id number]#1.00TIFF [facility] Outside Recordson 05-24-2023 Outside Records [id number]#1.00TIFF [facility] Outside Records [id number]#1.00TIFF [facility] Heart and Vascular Office/Cl inic Noteon 05-21-2023 Heart and Vascular Office/Clinic Note Chief Complaint [facility] ED F/U- Tachycardia History of Present Illness [...] for foot surgery. Unfortunately, she presented to [facility] ER on 05/19/2023 with complaints of palpitations. [...] intact- no rash or concerning lesions Procedure [facility]- Dr Fragoso 03/03/20 CONCLUSIONS: 1. Essentially normal coronary arteriograms. 2. Noncardiac chest pain. [1] Cardiac Diagnostics (06/07/2021 14:15 EDT Echo Transthoracic Complete) SUMMARY/CONCLUSION: 1. Normal left ventricle and right ventricle. 2. Borderline impaired diastolic relaxation. 3. No significant valve disease. 4. Normal estimated pulmonary artery pressure. [2] [1] Assessment/Plan 1. Sinus tachycardia (R00.0: Tachycardia, unspecified) In [facility] ER for palpitation, noted to be sinus [...] with voice recognition artificial intelligence software, specifically [employer], [employer] and or [employer]. Substitutions may have occurred due to the inherent limitations of voice recognition and artificial intelligence software. Follow-up With When Contact Information WILL WALSH, Elliott Grewal Within 6 weeks [address] [place] [address]- [phone] Additional Instructions: Problem List/Past Medical History Ongoing [...] (03/14/2020), Catheter (more content not included)... [facility] Comment on above: Result Comment: Elec tronically Signed By: Cady CALIX CNP\.rosi\Date and Time Signed: 05/21/23 12:56 EDT Consent for Treatmenton Consent for Treatment [id number]#1.00CD:12 7 [facility] Physician Orderon 05-20-2023 Physician Order [id number]#1.00CD:1 27 [facility] Physician Orderon 05-17-2023 Physician Order Confirmed with Ana Rosa olivas @ [facility] that fax was received [id number]#1.00CD:1 27 [facility] Consent for Treatmenton 04-20 Consent for Treatment [id number]#1.00CD:12 7 [facility] Heart and Vascular Office/Cl inic Noteon [...] y ( (more content not included)... [facility] Comment on above: Result Comment: Elec tronically Signed By: WILL WALSH, Elliott Grewal\.br\Date and Time Signed: 05/16/23 10:46 EDT Physician Orderon 05-16-2023 Physician Order [id number]#1.00CD:1 [address] [facility] CT lung screeningon 04-03-[address] [facility] [place] [address] CT Scan Report Signed Patient: Keturah Herrera MR#: [id number] : 1970 Acct:[id number] Age/Sex: 52 / F ADM Date: 04/03/23 Loc: [facility] Room: Type: [facility] Attending Dr: CARRILLO Boyd APRN Copies to: [...] Allison Castaneda M.D.04/03/2023 2:31 PM Dictation Location: [place] [address] Transcribed By: [facility] 04/03/23 143 Dictated By: Allison Castaneda MD 04/03/23 1423 Signed By: 04/03/23 1431 [facility] Reminderson 01-30-2023 Reminders - From: Inessa Grajeda CNP To: Shalonda Singh; Sent: 01/29/2023 12:17:11 EDT Show up: 01/29/2023 12:18:00 EDT Subject: Ambulatory Reminder Reminder/Recall Colonoscopy in 2027. 01/18/[address] cramer From: Shalonda Singh To: JAIMIE - Reminders/Recalls; Sent: 01/30/2023 09:24:18 EDT ! Show up: 12/18/2027 09:24:00 EDT Due Date/Time: 01/18/2028 09:24:00 EDT [facility] Ambulatory Visit Summaryon 0 01-29-2023 Ambulatory [...] 225 m (more content not included)... [facility] Gastroenterology Office/Clin ic Noteon 01-29-2023 Gastroenterology [...] in 5 (more content not included)... [facility] Comment on above: Result Comment: Gibran alvarado Signed By: Inessa Grajeda CNP.rosi\Date and Time Signed: 01/29/23 12:21 EDT Patient [...] serving. ? Talk with a diet and air conditioning specialist (dietitian) if you have questions about [...] Bulgur wheat. Millet. Quinoa. Bran muffins. Popcorn. Wallace wafer crackers. Meats and other proteins [place], kidney, and georges beans. Soybeans. Split peas. [...] Cream cheese. Sour cream. Fats and oils [place]. Beverages Soft drinks. Other foods Cakes and [...] 08/05/2006 Document Revised: 06/09/2018 Document Reviewed: 06/09/2018 [employer] Patient Education ? 2019 [employer]. Gastroenterology H (more content not included)... [facility] Postoperative Documentson Postoperative Documents [id number]#1.00CD:1 27 [facility] Consenton 01-21-2023 Consent [id number]#1.00CD:12 7 [facility] Discharge Instructionson Discharge Instructions [id number]#1.00CD:12 7 [facility] IntraOperative Documentson 0 01-21-2023 IntraOperative Documents [id number]#1.00CD:12 7 [facility] Progress Note-Physicianon Progress Note-Physician Patient: KETURAH HERRERA Age: 52 years Sex: Female : 1970 Associated Diagnoses: None Author: MD Nichole, Patrick Keller Postoperative Information Postoperative disposition: Postoperative disposition: To PACU. Optimetrix number: Optimetrix number [id number]. Anesthetic utilized: General. Health Status Allergies: Allergic [...] meets criteria ( To home ). [facility] Comment on above: Result Comment: Elec [...] stool, # 120 tab(s), Refills(s) 6, Pharmacy: [facility], 162, cm, 03/30/20 10:05:00 EDT, Height/Length Dosing, 74.2, kg, 03/30/20 10:05:00 EDT, Weight Dosing Pepcid 20 mg Tab: 20 mg = 1 tab(s), Oral, Once a day (at bedtime), X 90 day(s), # 90 tab(s), Refills(s) 0, Pharmacy: [facility], 163, cm, 10/29/22 14:56:00 EDT, Height/Length Dosing, 77.3, kg, 10/29/22 14:56:00 EDT, Weight Dosing Vesicare 10 mg Tab: 10 mg = 1 tab(s), Oral, Daily, # 30 tab(s), Refills(s) 5, Pharmacy: [facility], 163, cm, 04/09/22 14:41:00 EDT, Height/Length Dosing, 80, kg, 04/09/22 14:41:00 EDT, Weight Dosing carvedilol 25 mg Tab: 25 mg = 1 tab(s), Oral, BID, X 90 day(s), # 180 tab(s), Refills(s) 3, Pharmacy: [facility], 162, cm, 05/15/22 13:20:00 EDT, [...] list: All Problems Anxiety / SNOMED CT 12132259 / Confirmed Bipolar disorder / SNOMED CT 50666602 / Confirmed BMI 30.0-30.9,adult / SNOMED CT 249011751 / Confirmed Change in bowel habits / SNOMED CT 883058747 / Confirmed Chronic migraine / SNOMED CT 48536191 / Confirmed Chronic pain / SNOMED CT 523764420 / Confirmed COPD (chronic obstructive pulmonary disease) / SNOMED CT 40489754 / Confirmed Depression / SNOMED CT 88402210 / Confirmed Diabetes / SNOMED CT 607283232 / Confirmed Dizziness / SNOMED CT 4387694658 / Confirmed Dysuria / SNOMED CT 22353886 / Confirmed Esophageal spasm / SNOMED CT 564882092 / Confirmed Family history of colorectal cancer / SNOMED CT 4225100154 (more content not included)... Normal [facility] Comment on above: Result Comment: Elec tronically Signed By: MD Nichole, Patrick F\.br\Date and Time Signed: 01/18/23 14:08 EDT Consent for Treatmenton Consent for Treatment [id number]#[id number]:12 7 [facility] Discharge Instructionson Discharge Instructions KETURAH HERRERA [...] hours Discharge Diet(s) Regular Pharmacy Information Medicine [facility] Discharge Instructions Discharge Instructions Previously Scheduled Follow-Up Appointments Saturday 1:20 PM EDT With: POLLY MARIANO PA-C Where: [facility] Normal [address] [address]- \.br\ New Follow Up Appointments after Discharge\.br \ Follow Up with BELA WALSH, Zulema, DHAVAL, MED When: \.br\ Comments:\.br\ Office will call to schedule follow up appointment\.br \ Where:\.br\ [address]\.br\ [place] [address]\.br\ \.br\ Medications\.br \ What How Much When [...] nonbleeding internal hemorrhoids Images Procedure images: Rec_hd_video_ 08_40_11_[id number].jpg Rec_hd_video_ 09_37_21_616.jpg Rec_hd_video_ 08_30_818.jpg Rechd_video_ 0835_04_258.jpg Rec_hd_video_ 08_199.jpg . Post-Procedure Complications: none. Estimated blood loss: [...] Return to activities:: After 24 hours. Normal [facility] Comment on above: Result Comment: Elec tronically Signed By: BELA WALSH, Zulema\.br\Date and Time Signed: 01/17/23 09:42 EDT Other Comment: Elba augustin Attachment - attachment storage system not supported [id number] Can be viewed in source systemMissing Attachment - attachment storage system not supported [id number] Can be viewed in source systemMissing Attachment - attachment storage system not supported [id number] Can be viewed in source systemMissing Attachment - attachment storage system not supported [id number] Can be viewed in source systemMissing Attachment - attachment storage system not supported [id number] Can be viewed in source system Main OR Intraoperative Recor don 01-17-2023 Main OR Intraoperative Record IntraOp Document Type FT Summary Primary Physician: Zulema CRAMER MD Finalized Date/Time: 01/17/23 12:22:14 Pt. Name: KETURAH HERRERA Vasquez/Sex: 1970 Female Med Rec #: [id number] Physician: Zulema CRAMER MD Financial #: [id number] Pt. Type: O Room/Bed: Endo 10/17 Admit/Disch: 01/17/23 08:13:37 - Institution: Case Times FT Entry 1 Patient Times In Room 01/17/23 09:23:00 Out Room 01/17/23 09:38:00 Procedure Times Start 01/17/23 09:26:00 Stop 01/17/23 09:36:00 Anesthesia Times Start 01/17/23 09:23:00 Stop 01/17/23 09:38:00 Time at [facility] 01/17/23 09:30:00 Last Modified By: Efe LAZO, Andrés Kaminski 01/17/23 09:38:41 General Comments: 01/17/23 Chart opened to review and send charges LRoth CSFA Case Attendance FT Entry 1 Entry 2 Entry 3 Case Attendee Ye Porras CRNA, RN, Goldie Chan Role Performed PIPE COVERING MOLDER Corporate Strategist - Primary Scrub - Primary Time In 01/17/23 09:23:00 01/17/23 09:23:00 01/17/23 09:23:00 Time Out 01/17/23 09:38:00 01/17/23 09:38:00 01/17/23 09:38:00 Procedure COLONOSCOPY(.) COLONOSCOPY(.) COLONOSCOPY(.) Comments Dr. Varela supervising case Last Modified By: Efe RN, Andrés Wilks RN, Andrés Wilks RN, Andrés Kaminski 01/17/23 09:38:42 01/17/23 09:38:42 01/17/23 09:38:42 Entry 4 Entry 5 Case Attendee Bhavin KITCHEN, Zulema Up MD Role Performed Staff - Other Surgeon - Primary Time In 01/17/23 09:28:00 01/17/23 09:23:00 Time Out 01/17/23 09:38:00 01/17/23 09:38:00 Procedure COLONOSCOPY(.) COLONOSCOPY(.) Comments Last Modified By: Efe LAZO, Andrés Glez RN 01/17/23 09:38:42 01/17/23 09:38:42 Perioperative Protocols FT [...] Participants Efe LAZO, Tosin Low Micala E, SALAM MD, Maher Time Out [...] Procedure Yes Primary Surgeon Zulema CRAMER MD 01/17/23 09:26:00 Stop 01/17/23 09:36:00 Anesthesia Type [...] Right Arm (more content not included)... Normal [facility] Main OR PACU I Recordon Main OR PACU I Record PACU Phase I Document Type FT Summary Primary Physician: Zulema CRAMER MD Finalized Date/Time: 01/17/23 10:32:26 Pt. Name: KETURAH HERRERA.O.B./Sex: 1970 Female Med Rec #: [id number] Physician: Zulema CRAMER MD Financial #: [id number] Pt. Type: O Room/Bed: [facility] 10/17 Admit/Disch: 01/17/23 08:13:37 - Institution: Case [...] By: LIZZETTE SOL RN 01/17/23 10:32 Normal [facility] Main OR Preoperative Recordo n 01-17-2023 Main OR Preoperative Record Holding Area Document Type FT Summary Primary Physician: Zulema CRAMER MD Finalized Date/Time: 01/17/23 08:35:14 Pt. Name: KETURAH HERRERA /Sex: 1970 Female Med Rec #: [id number] Physician: Zulema CRAMER MD Financial #: [id number] Pt. Type: O Room/Bed: Endo 10/17 Admit/Disch: [...] By: Sonya See RN 01/17/23 08:35 Normal [facility] Monitor Recordon 01-17-2023 Monitor Record [id number]:1 27 Normal [facility] Monitor Record [id number]#[id number]:1 27 Normal [facility] Patient Education - Texton 0 01-17-2023 [...] a plas (more content not included)... Normal [facility] XR KNEE LT 4V or >on [...] by: LILIANA NDIAYE Date: 2022-11-29 16:44 Normal [facility] CHEMISTRYOrdered By: Jordan NAVAS User on 11-21-2022 Glucose [Mass/Vol] 91 mg/dL Normal 55 - 99 mg/dL FTM C POC Subsection Comment on above: Result Comment: Dahlia hoover Meter POC Device SN [id number] Invalid Interpretation Code [facility] POC Subsection POC User ID [id number] Invalid Interpretation Code [facility] POC Subsection POC Username BILLY HOGUE Invalid Interpretation Code [facility] POC Subsection CHEMISTRYOrdered By: SYSTEM SYSTEM on 10-20-2022 Anion gap [Moles/Vol] 13 mmol/L Normal 6 - 16 mEq/L [facility] Remisol Calcium [Mass/Vol] 9.5 mg/dL Normal 8.9 - 11. 1 mg/dL [facility] Remisol Chloride [Moles/Vol] 99 mmol/L Low 101 - 111 mmol/L [facility] Remisol CO2 [Moles/Vol] 26 mmol/L Normal 21 - 31 mmol/L [facility] Remisol Creatinine [Mass/Vol] 1.1 mg/dL Normal 0.5 - 1.3 mg/dL [facility] Remisol GFR/1.73 sq M.predicted among blacks MDRD (S/P/Bld) [Vol rate/Area] mL/min/1.73 m2 Normal >=59mL/min/1.73 m2 [facility] Chem S GFR/1.73 sq M.predicted among non-blacks MDRD (S/P/Bld) [Vol rate/Area] 52 mL/min/1.73 m2 Low >=59mL/min/1.73 m2 [facility] Chem S Glucose [Mass/Vol] 127 mg/dL Normal 55 - 199 mg/dL [facility] Remisol Potassium [Moles/Vol] 4.0 mmol/L Normal 3.5 - 5.3 mmol/L [facility] Remisol Sodium [Moles/Vol] 134 mmol/L Low 135 - 145 mmol/L [facility] Remisol Urea nitrogen [Mass/Vol] 7 mg/dL Normal 5 - 21 mg/dL [facility] Remisol Urea nitrogen/Creatinin e [Mass ratio] 6 mg/mg Low 10 - 20 FT Remisol HEMATOLOGYOrdered By: SYSTEM SYSTEM on 10-20-2022 Basophils/100 WBC (Bld) 1.0 % Normal 0.0 - 2.0 % [facility] HemeAutoSS Basophils/Leukocyt es Auto (Bld) [Pure # fraction] 0.1 E9/L Normal 0.0 - 0.2 E9/L FT HemeAutoSS Eosinophils/100 WBC (Bld) 0.4 % Normal [...] 4.6 E12/L Normal 4.3 - 5.9 E12/L [facility] HemeAutoSS WBC corrected for nucl RBC Auto [...] LM.HPF (Urine sed) [#/Area] /[HPF] Normal 0-2/HPF FT UA Auto SS Glucose Test strip (U) [Mass/Vol] Negative (10/20/22 11:40 AM) Normal Negative [facility] UA Auto SS Hemoglobin Ql (U) Negative (10/20/22 11:40 AM) Normal Negative [facility] UA Auto SS Ketones (U) [Mass/Vol] Negative (10/20/22 11:40 AM) Normal Negative [facility] UA Auto SS [place].plasma/Lit hium.RBC (Bld) [Mass ratio] 0-3 /HPF Normal [...] FT UA Auto SS Urobilinogen Qn (U) 0.9210190 {Gareth'U}/dL Normal 0.0 - 1.0 EU/dL [facility] UA Auto SS WBC Auto Ql (U) 1+ *ABN* (10/20/22 11:40 AM) Invalid Interpretation Code Negative [facility] UA Auto SS WBC LM.HPF (Urine sed) [#/Area] 0-5 /HPF Normal 0-5/HPF [facility] UA Auto SS MG MAMM DIAGNOSTIC 3D TAJ CA Don 09-10-2022 MG MAMM DIAGNOSTIC 3D TAJ CAD Patient: KETURAH HERRERA Exam Date: 09/10/2022 : 1970 Gender:F Ordering : DR FREDERICK MAHARAJ . Admission #: [id number] Family : Order #: [id number] CLICK HERE TO VIEW EXAM RADIOLOGY REPORT [...] ovarian cancer at age 60. LOCATION: [facility] BREAST COMPOSITION: Heterogeneously dense,which may obscure small [...] M.D. on 09/10/2022 at 13:54 Normal [facility] US BREAST LEFT LIMITEDon US BREAST LEFT LIMITED Patient: KETURAH HERRERA Exam Date: 09/10/2022 : 1970 Gender:F Ordering : DR FREDERICK MAHARAJ . Admission #: [id number] Family : Order #: [id number] CLICK HERE TO VIEW EXAM RADIOLOGY REPORT [...] ovarian cancer at age 60. LOCATION: [facility] BREAST COMPOSITION: Heterogeneously dense,which may obscure small [...] M.D. on 09/10/2022 at 13:54 Normal [facility] XR DEXA BONE DENSITYon 08-06 XR DEXA [...] DELORES ROACH Date: 2022-08-06 14:11 Normal [facility] XR CHEST 2 Von 07-04-2022 XR CHEST [...] NICOLE ROJAS Date: 2022-07-04 14:11 Normal [facility] XR KNEE RT 4V or >on XR [...] NICOLE ROJAS Date: 2022-07-03 18:12 Normal [facility] CBC AUTO DIFFon 04-30-2022 BASO # 0.1 103/ul Normal 0.0-0.1 [facility] Comment on above: Performed By: #### C BC ####[facility] [address] [place] [address]Dr. Soo Brandon Basophils/100 WBC (Bld) 0.7 % Normal 0.2-2.0 [facility] Comment on above: Performed By: #### C BC ####[facility] [address] [place], [place] [address]Dr. Soo Taylor EO # 0.1 103/ul Normal 0.0-0.7 [facility] Comment on above: Performed By: #### C BC ####[facility] [address] [place], [place] [address]Dr. Soo Taylor Eosinophils/100 WBC (Bld) 0.4 % Critically low 0.9-7.0 [facility] Comment on above: Performed By: #### C BC ####[facility] [address] [place], [place] [address]Dr. Soo Taylor Erythrocyte distribution width (RBC) [Ratio] 15.1 % Critically high 11.0-15.0 [facility] Comment on above: Performed By: #### C BC ####[facility] [address] [place], [place] [address]Dr. Soo Taylor Hematocrit (Bld) [Volume fraction] 43.4 % Normal 36.0-48.0 [facility] Comment on above: Performed By: #### C BC ####[facility] [address] [place], [place] [address]Dr. Soo Taylor Hemoglobin (Bld) [Mass/Vol] 14.4 g/dL Normal 12.0-16.0 [facility] Comment on above: Performed By: #### C BC ####[facility] [address] [place], [place] [address]Dr. Soo Taylor IG # 0.06 10e3/ul Critically high 0.00-0.03 The [facility] Comment on above: Performed By: #### C BC ####[facility] [address] [place], [place] [address]Dr. Soo Taylor IG % 0.4 % Normal 0.0-0.5 [facility] Comment on above: Performed By: #### C BC ####[facility] [address] [place], [place] [address]Dr. Soo Taylor LYMPH # 5.4 103/ul Critically high 1.2-3.8 [facility] Comment on above: Performed By: #### C BC ####[facility] [address] [place] [address]Dr. Soo Taylor Lymphocytes/100 WBC (Bld) 36.6 % Normal 20.5-60.0 [facility] Comment on above: Performed By: #### C BC ####[facility] [address] [place] [address]Dr. Soo Taylor MANUAL DIFF REQ NO Normal [facility] Comment on above: Performed By: #### C BC ####[facility] [address] [place] [address]Dr. Soo Taylor MCH (RBC) [Entitic mass] 29.4 pg Normal 26.7-34.0 [facility] Comment on above: Performed By: #### C BC ####[facility] [address] [place], [place] [address]Dr. Soo Taylor MCHC (RBC) [Mass/Vol] 33.2 g/dL Normal 29.9-35.2 [facility] Comment on above: Performed By: #### C BC ####[facility] [address] [place], [place] [address]Dr. Soo Taylor MCV (RBC) [Entitic vol] 88.6 fL Normal 81.0-99.0 [facility] Comment on above: Performed By: #### C BC ####[facility] [address] [place] [address]Dr. Soo Taylor MONO # 0.9 103/ul Critically high 0.3-0.8 [facility] Comment on above: Performed By: #### C BC ####[facility] [address] [place], [place] [address]Dr. Soo Taylor Monocytes/100 WBC (Bld) 6.4 % Normal 1.7-12.0 [facility] Comment on above: Performed By: #### C BC ####[facility] [address] [place], [place] [address]Dr. Soo Taylor NEUT # 8.1 103/ul Critically high 1.4-6.5 [facility] Comment on above: Performed By: #### C BC ####[facility] [address] [place] [address]Dr. Soo Taylor Neutrophils/100 WBC (Bld) 55.5 % Normal 43.0-75.0 [facility] Comment on above: Performed By: #### C BC ####[facility] [address] [place] [address]Dr. Soo Taylor Platelet mean volume (Bld) [Entitic vol] 9.9 fL Normal 9.5-13.5 [facility] Comment on above: Performed By: #### C BC ####[facility] [address] [place] [address]Dr. Soo Taylor PLT 326 103/ul Normal 150-450 [facility] Comment on above: Performed By: #### C BC ####[facility] [address] [place] [address]Dr. Soo Taylor RBC 4.90 106/ul Normal 4.20-5.40 [facility] Comment on above: Performed By: #### C BC ####[facility] [address] [place] [address]Dr. Soo Taylor WBC 14.6 103/ul Critically high 4.0-11.0 The [facility] Comment on above: Performed By: #### C BC ####[facility] [address] [place] [address]Dr. Soo Brandon PROF CHEM 8 (BAS METB)on Anion gap [Moles/Vol] 12.9 mmol/L Normal [facility] Comment on above: Performed By: #### B MP ####[facility] [address] [place] [address]Dr. Soo Brandon Calcium [Mass/Vol] 9.5 mg/dL Normal 8.5-10.1 [facility] Comment on above: Performed By: #### B MP ####[facility] [address] [place] [address]Dr. Soo Taylor Chloride [Moles/Vol] 101 mmol/L Normal 98-107 [facility] Comment on above: Performed By: #### B MP ####[facility] [address] [place] [address]Dr. Soo Taylor CO2 [Moles/Vol] 26.6 mmol/L Normal 21.0-32.0 [facility] Comment on above: Performed By: #### B MP ####[facility] [address] [place], [place] [address]Dr. Soo Taylor Creatinine [Mass/Vol] 1.11 mg/dL Critically high 0.55-1.02 [facility] Comment on above: Performed By: #### B MP ####[facility] [address] [place], [place] [address]Dr. Soo Taylor EGFR-AF JAPANESE >60 Normal >=60 [facility] Comment on above: Performed By: #### B MP ####[facility] [address] [place], [place] [address]Dr. Soo Taylor EGFR-NON AF JAPANESE 52 mL/min/1.73m2 Critically low >=60 [facility] Comment on above: Performed By: #### B MP ####[facility] [address] [place], [place] [address]Dr. Soo Taylor Glucose [Mass/Vol] 145 mg/dL Critically high 74-106 [facility] Comment on above: Performed By: #### B MP ####[facility] [address] [place], [place] [address]Dr. Soo Taylor Potassium [Moles/Vol] 3.5 mmol/L Normal 3.5-5.1 [facility] Comment on above: Performed By: #### B MP ####[facility] [address] [place], [place] [address]Dr. Soo Taylor Sodium [Moles/Vol] 137 mmol/L Normal 136-145 [facility] Comment on above: Performed By: #### B MP ####[facility] [address] [place], [place] [address]Dr. Soo Taylor Urea nitrogen [Mass/Vol] 2.0 mg/dL Critically low 7.0-18.0 [facility] Comment on above: Performed By: #### B MP ####[facility] [address] [place] [address]Dr. Soo Taylor Urea nitrogen/Creatinin e [Mass ratio] 1.8 mg/mg Normal [facility] Comment on above: Performed By: #### B MP ####[facility] [address] [place] [address]Dr. Soo Taylor TROPONIN, HIGH SENSITIVITYon 04-30-2022 HSTROP 5.1 pg/mL Normal 4.0-51.3 [facility] Comment on above: Result Comment: CUT- OFF POINTS HAVE BEEN ESTABLISHED BASED ON THE FOURTH UNIVERSAL DEFINITIONS OF MYOCARDIAL INFARCTION. THE UPPER REFERENCE LIMIT (URL) OF TROPONIN, DEFINED THE 99TH PERCENTILE OF cTnI DISTRIBUTION IN A REFERENCE POPULATION, HAS BEEN CONFIRMED THE DECISION THRESHOLD FOR MD DIAGNOSIS. Performed By: #### H STROPN ####[facility] [address] [place] [address]Dr. Soo Taylor HSTROP 4.6 pg/mL Normal 4.0-51.3 [facility] Comment on above: Result Comment: CUT- OFF POINTS HAVE BEEN ESTABLISHED BASED ON THE FOURTH UNIVERSAL DEFINITIONS OF MYOCARDIAL INFARCTION. THE UPPER REFERENCE LIMIT (URL) OF TROPONIN, DEFINED THE 99TH PERCENTILE OF cTnI DISTRIBUTION IN A REFERENCE POPULATION, HAS BEEN CONFIRMED THE DECISION THRESHOLD FOR MD DIAGNOSIS. Performed By: #### H STROPN ####[facility] [address] [place] [address]Dr. Soo Taylor MRI LSPINE WO CONon 04-06-20 [...] by: MAMIE HERNANDEZ Date: 2022-04-06 18:18 Normal [facility] MRI KNEE RT WO CONon 022 [...] by: MAMIE HERNANDEZ Date: 2022-03-28 11:40 Normal [facility] MRI SHOULDER RT WO CONon MRI [...] MAMIE HERNANDEZ Date: 2022-03-28 09:09 Normal [facility] ER URINE PROFILEon 2 Bilirubin Ql (U) Negative Normal NEGATIVE [facility] Comment on above: Performed By: #### E RUR #### [facility] [address] [place] [address] Dr. Soo Taylor Clarity (U) CLEAR Normal CLEAR [facility] Comment on above: Performed By: #### E RUR #### [facility] [address] [place] [address] Dr. Soo Taylor Color (U) LT. YELLOW Normal YELLOW [facility] Comment on above: Performed By: #### E RUR #### [facility] [address] [place] [address] Dr. Soo Taylor ERUAHD A micrscopic examina tion will be performed if indicated. Normal [facility] Comment on above: Performed By: #### E RUR #### [facility] [address] [place] [address] Dr. Soo Taylor Glucose Ql (U) Negative Normal NEGATIVE [facility] Comment on above: Performed By: #### E RUR #### [facility] [address] [place] [address] Dr. Soo Taylor Hemoglobin Ql (U) Negative Normal NEGATIVE [facility] Comment on above: Performed By: #### E RUR #### [facility] [address] [place] [address] Dr. Soo Taylor Ketones Ql (U) Negative Normal NEGATIVE [facility] Comment on above: Performed By: #### E RUR #### [facility] [address] [place] [address] Dr. Soo Taylor LEUKOCYTES Negative Normal NEGATIVE [facility] Comment on above: Performed By: #### E RUR #### [facility] [address] [place] [address] Dr. Soo Taylor Nitrite Ql (U) Negative Normal NEGATIVE [facility] Comment on above: Performed By: #### E RUR #### [facility] [address] [place] [address] Dr. Soo Taylor pH (U) 5.5 [pH] Normal 5-9 [facility] Comment on above: Performed By: #### E RUR #### [facility] [address] [place] [address] Dr. Soo Taylor SPEC GRAVITY <=1.005 Abnormal 1.005-<=1.025 [facility] Comment on above: Performed By: #### E RUR #### [facility] [address] [place] [address] [address] Soo Taylor UA PROTEIN Negative Normal NEGATIVE/ TRACE [facility] Comment on above: Performed By: #### E RUR #### [facility] [address] [place] [address] [address] Soo Taylor UR MICRO IND NOT INDICATED Normal [facility] Comment on above: Performed By: #### E RUR #### [facility] [address] [place] [address] [address] Soo Taylor Urobilinogen Qn (U) 0.2 {Gareth'U}/dL Normal 0.2 - 1.0 [facility] Comment on above: Performed By: #### E RUR #### [facility] [address] [place] [address] Dr. Soo Taylor COMPREHENSIVE METABOLIC PANE Bulmaro 02-22-2022 Albumin [Mass/Vol] 4.2 g/dL Normal 3.6-5.1 [facility] Comment on above: Performed By: #### 7 600, 62149, 496 #### [facility] [place] [address] Manager Transmission: Arjun Ramos MD Albumin/Globulin [Mass ratio] 1.8 {ratio} Normal 1.0-2.5 [facility] Comment on above: Performed By: #### 7 600, 48410, 496 #### [facility] [place] [address] Manager Transmission: Arjun Ramos MD ALP [Catalytic activity/Vol] 143 U/L Normal 37-153 [facility] Comment on above: Performed By: #### 7 600, 77304, 496 #### [facility] [place] [address] Manager Transmission: Arjun Ramos MD ALT [Catalytic activity/Vol] 18 U/L Normal 6-29 [facility] Comment on above: Performed By: #### 7 600, 02160, 496 #### [facility] [place] [address] Manager Transmission: Arjun Ramos MD AST [Catalytic activity/Vol] 14 U/L Normal 10-35 [facility] Comment on above: Performed By: #### 7 600, 38856, 496 #### [facility] [place] [address] Manager Transmission: Arjun Ramos MD Bilirubin [Mass/Vol] 0.5 mg/dL Normal 0.2-1.2 [facility] Comment on above: Performed By: #### 7 600, 59347, 496 #### [facility] [place] [address] Manager Transmission: Arjun Ramos MD Calcium [Mass/Vol] 10.0 mg/dL Normal 8.6-10.4 [facility] Comment on above: Performed By: #### 7 600, 68694, 496 #### [facility] [place] [address] Manager Transmission: Arjun Ramos MD Chloride [Moles/Vol] 100 mmol/L Normal 98-110 [facility] Comment on above: Performed By: #### 7 600, 96028, 496 #### [facility] [place] [address] Manager Transmission: Arjun Ramos MD CO2 [Moles/Vol] 29 mmol/L Normal 20-32 [facility] Comment on above: Performed By: #### 7 600, 89141, 496 #### [facility] [place] [address] Manager Transmission: Arjun Ramos MD Creatinine [Mass/Vol] 0.86 mg/dL Normal 0.50-1.05 [facility] Comment on above: Result Comment: For patients >49 years of age, the reference limit for Creatinine is approximately 13% higher for people identified as -[place]ruguayan. Performed By: #### 7 600, 72103, 496 #### [facility] [place] [address] Manager Transmission: Arjun Ramos MD eGFR NON-AFR. JAPANESE 78 mL/min/1.73m2 Normal > OR = 60 [facility] Comment on above: Performed By: #### 7 600, 26884, 496 #### [facility] [place] [address] Manager Transmission: Arjun Ramos MD GFR/1.73 sq M.predicted among blacks MDRD (S/P/Bld) [Vol rate/Area] 91 mL/min/{1.73_m2} Normal > OR = 60 [facility] Comment on above: Performed By: #### 7 600, 54839, 496 #### [facility] [place] [address] Manager Transmission: Arjun Ramos MD Globulin (S) [Mass/Vol] 2.4 g/dL Normal 1.9-3.7 [facility] Comment on above: Performed By: #### 7 600, 09354, 496 #### [facility] [place] [address] Manager Transmission: Arjun Ramos MD Glucose [Mass/Vol] 125 mg/dL Normal 65-139 [facility] Comment on above: Result Comment: Non-fasting reference interval For someone without known diabetes, a glucose value between 100 and 125 mg/dL is consistent with prediabetes and should be confirmed with a follow-up test. Performed By: #### 7 600, 02906, 496 #### [facility] [place] [address] Manager Transmission: Arjun Ramos MD Potassium [Moles/Vol] 3.6 mmol/L Normal 3.5-5.3 [facility] Comment on above: Performed By: #### 7 600, 78900, 496 #### [facility] [place] [address] Manager Transmission: Arjun Ramos MD Protein [Mass/Vol] 6.6 g/dL Normal 6.1-8.1 [facility] Comment on above: Performed By: #### 7 600, 32482, 496 #### [facility] [address], [address] [place] [address] Manager Transmission: Arujn Ramos MD Sodium [Moles/Vol] 139 mmol/L Normal 135-146 [facility] Comment on above: Performed By: #### 7 600, 15957, 496 #### [facility] [address], [address] [place] [address] Manager Transmission: Arjun Ramos MD Urea nitrogen [Mass/Vol] 4 mg/dL Low 7-25 [facility] Comment on above: Performed By: #### 7 600, 36997, 496 #### [facility] [address], [address] [place] [address] Manager Transmission: Arjun Ramos MD Urea nitrogen/Creatinin e [Mass ratio] 5 mg/mg Low 6-22 [facility] Comment on above: Performed By: #### 7 600, 81414, 496 #### [facility] [address], [address] [place] [address] Manager Transmission: Arjun Ramos MD HEMOGLOBIN A1con 02-22-2022 HEMOGLOBIN [...] diagnosis of diabetes in children. According to [place] Diabetes Association (ADA) guidelines, hemoglobin A1c <7.0% represents optimal control in non- diabetic patients. Different metrics may apply to specific patient populations. Standards of Medical Care in Diabetes(ADA). Performed By: #### 7 600, 57072, 496 #### [facility] [address], [address] [place] [address] Manager Transmission: Arjun Ramos MD LIPID PANEL, STANDARDon 07-0 Cholesterol [Mass/Vol] 187 mg/dL Normal <200 [facility] Comment on above: Order Comment: FASTI NG:NO FASTING: NO Performed By: #### 7 600, 81781, 496 #### [facility] [address], [address] [place] [address] Manager Transmission: Arjun Ramos MD Cholesterol in HDL [Mass/Vol] 43 mg/dL Low > OR = 50 [facility] Comment on above: Order Comment: FASTI NG:NO FASTING: NO Performed By: #### 7 600, 14478, 496 #### [facility] [address], [address] [place] [address] Manager Transmission: Arjun Ramos MD Cholesterol.total/ Cholesterol in HDL [Mass ratio] 4.3 {ratio} Normal <5.0 [facility] Comment on above: Order Comment: FASTI NG:NO FASTING: NO Performed By: #### 7 600, 07817, 496 #### [facility] [address], [address] [place] [address] Manager Transmission: Arjun Ramos MD LDL-CHOLESTEROL Normal [facility] [...] LDL-C. Lan MARTÍNEZ et al. KELLY. 2013;310(19): 6674-2600 (http://education.Lotame.Dormify/faq/SIW325) Performed By: #### 7 600, 81386, 496 #### [facility] [address], [address] [place] [address] Manager Transmission: Arjun Ramos MD NON HDL CHOLESTEROL 144 mg/dL (calc) High <130 [facility] Comment on above: Order Comment: FASTI NG:NO FASTING: NO Result Comment: For patients with diabetes plus 1 major ASCVD risk factor, treating to a non-HDL-C goal of <100 mg/dL (LDL-C of <70 mg/dL) is considered a therapeutic option. Performed By: #### 7 600, 20051, 496 #### [facility] [address], [address] [place] [address] Manager Transmission: Arjun Ramos MD Triglyceride [Mass/Vol] 425 mg/dL High <150 [facility] Comment on above: Order Comment: FASTI NG:NO FASTING: NO Result Comment: If a non-fasting specimen was collected, consider repeat triglyceride testing on a fasting specimen if clinically indicated. Heber et al. J. of Clin. Lipidol. 2015;9:129-169. Performed By: #### 7 600, 04301, 496 #### [facility] [address], [address] [place] [address] Manager Transmission: Arjun Ramos MD HEMOGLOBIN A1con 11-14-2021 HEMOGLOBIN [...] #### 7 600, 496 #### [facility] [address], [address] [place] [address] Manager Transmission: Arjun Ramos MD LIPID PANEL, STANDARDon 10-18 Cholesterol [Mass/Vol] 184 mg/dL Normal <200 [facility] Comment on above: Order Comment: FASTI NG:YES FASTING: YES Performed By: #### 7 600, 496 #### [facility] [address], [address] [place] [address] Manager Transmission: Arjun Ramos MD Cholesterol in HDL [Mass/Vol] 32 mg/dL Low > OR = 50 [facility] Comment on above: Order Comment: FASTI NG:YES FASTING: YES Performed By: #### 7 600, 496 #### [facility] [address], [address] [place] [address] Manager Transmission: Arjun Ramos MD Cholesterol.total/ Cholesterol in HDL [Mass ratio] 5.8 {ratio} High <5.0 [facility] Comment on above: Order Comment: FASTI NG:YES FASTING: YES Performed By: #### 7 600, 496 #### [facility] [address], [address] [place] [address] Manager Transmission: Arjun Ramos MD LDL-CHOLESTEROL Normal [facility] [...] LDL-C. Lan MARTÍNEZ et al. KELLY. 2013;310(19): 4198-0528 (http://education.Lotame.Dormify/faq/GFC028) Performed By: #### 7 600, 496 #### [facility] [address], [address] [place] [address] Manager Transmission: Arjun Ramos MD NON HDL CHOLESTEROL 152 mg/dL (calc) High <130 [facility] Comment on above: Order Comment: FASTI NG:YES FASTING: YES Result Comment: For patients with diabetes plus 1 major ASCVD risk factor, treating to a non-HDL-C goal of <100 mg/dL (LDL-C of <70 mg/dL) is considered a therapeutic option. Performed By: #### 7 600, 496 #### [facility] [address], [address] [place] [address] Manager Transmission: Arjun Ramos MD Triglyceride [Mass/Vol] 531 mg/dL [...] Performed By: #### 7 600, 496 #### [facility] [address] [facility], [address] [place] [id number] Manager Transmission: Arjun Ramos MD OVon 06-27-2021 CNOV Office Visit (OTOLCC ) ----- KETURAH HERRERA ([id number]) 1970 F Date Time Provider Department 06/27/21 2:00 PM YE RODRIGUEZ [facility] During your visit today, we recorded the following information about you: Temperature Pulse 97.3 degrees 82/minute Ye Rodriguez PA-C 06/27/2021 4:56 PM Signed [facility] [place] [facility] NOTE CC: Keturah Herrera is a [...] bipolar - COPD (chronic obstructive pulmonary disease) ([facility]) - Depression - Ana Laura-Danlos disease - [...] mg ta (more content not included)... 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 Normal [facility] XR ELBOW 3V AP/LAT/OTHER RTo n 04-19-2021 XR ELBOW 3V AP/LAT/OTHER RT * * *Final Report* * * DATE OF EXAM: Apr 19 2021 1:58PM SAMANTHA 5325 - XR ELBOW 3V AP/LAT/OTHER RT [...] NO ACUTE OSSEOUS ABNORMALITY OTHER FINDINGS DESCRIBED Instructional Assistant: DIONNE Transcribe Date/Time: Apr 19 2021 2:38P Dictated by : CAROL ROCHE MD This examination was interpreted and the report reviewed and electronically signed by: CAROL ROCHE MD on Apr 19 2021 2:39PM EST [id number] Normal [facility] XR SHLDR >/=3V AP/IGNACIA AP/OTH R RTon [...] No other significant abnormality. IMPRESSION: HEALING FRACTURE Instructional Assistant: DIONNE Transcribe Date/Time: Apr 19 2021 2:02P Dictated by : CAROL ROCHE MD This examination was interpreted and the report reviewed and electronically signed by: CAROL ROCHE MD on Apr 19 2021 2:02PM EST [id number] Normal [facility] Vital Signs Date Time Vital Sign Value Performing Clinician Facility 01-01-2024 11:04-0400 Diastolic blood pressure 71 mm[Hg] Cady Alva [facility] 01-01-2024 11:04-0400 Heart rate 62 /min Cady Alva [facility] 01-01-2024 11:04-0400 Mean blood pressure 91 mm[Hg] Cady Alva [facility] 01-01-2024 11:04-0400 Respiratory rate 12 /min Cady Alva [facility] 01-01-2024 11:04-0400 Systolic blood pressure 131 mm[Hg] Cady Alva [facility] 12-31-2023 12:53-0400 Blood Pressure Location POLLY MARIANO [facility] 12-31-2023 12:53-0400 Diastolic blood pressure 65 mm[Hg] POLLY MARIANO [facility] 12-31-2023 12:53-0400 Heart rate 57 /min POLLY MARIANO [facility] 12-31-2023 12:53-0400 Respiratory rate 16 /min POLLY MARIANO [facility] 12-31-2023 12:53-0400 Systolic blood pressure 117 mm[Hg] POLLY MARIANO [facility] 12-11-2023 09:29-0400 Heart rate 89 /min Andrew Eid [facility] 12-11-2023 09:29-0400 SaO2% (BldA) [Mass fraction] 96 % Andrew Eid [facility] 12-11-2023 09:29-0400 Diastolic blood pressure 86 mm[Hg] Andrew Eid [facility] 12-11-2023 09:29-0400 Mean blood pressure 103 mm[Hg] Andrew Eid [facility] 12-11-2023 09:29-0400 Systolic blood pressure 137 mm[Hg] Andrew Eid [facility] 12-11-2023 09:29-0400 Respiratory rate 14 /min Andrew Eid [facility] 12-11-2023 09:25-0400 Diastolic blood pressure 84 mm[Hg] Andrew Eid [facility] 12-11-2023 09:25-0400 Heart rate 97 /min Andrew Eid [facility] 12-11-2023 09:25-0400 SaO2% (BldA) [Mass fraction] 96 % Andrew Eid [facility] 12-11-2023 09:25-0400 Systolic blood pressure 141 mm[Hg] Andrew Eid [facility] 12-11-2023 08:44-0400 Heart rate 93 /min Andrew Eid [facility] 12-11-2023 08:44-0400 SaO2% (BldA) [Mass fraction] 94 % Andrew Eid [facility] 12-11-2023 08:44-0400 Body temperature 98.24 [degF] Andrew Eid [facility] 12-11-2023 08:43-0400 Diastolic blood pressure 86 mm[Hg] Andrew Eid [facility] 12-11-2023 08:43-0400 Mean blood pressure 102 mm[Hg] Morales Eli [facility] 12-11-2023 08:43-0400 Systolic blood pressure 134 mm[Hg] Andrew Eid [facility] 12-11-2023 08:43-0400 Respiratory rate 15 /min Andrew Eid [facility] 11-06-2023 09:32-0400 Diastolic blood pressure 71 mm[Hg] Cady Alva [facility] 11-06-2023 09:32-0400 Heart rate 79 /min Cady Alva [facility] 11-06-2023 09:32-0400 Mean blood pressure 84 mm[Hg] Cady Alva [facility] 11-06-2023 09:32-0400 Respiratory rate 15 /min Cady Alva [facility] 11-06-2023 09:32-0400 Systolic blood pressure 111 mm[Hg] Cady Alva [facility] 10-03-2023 16:13-0500 Body height 162.6 cm RobertLIN TVng DO Work Phone: [facility] 10-03-2023 16:13-0500 Body mass index (BMI) [Ratio] 30.47 kg/m2 Robert [employer]long DO Work Phone: [facility] [employer] [facility] 10-03-2023 16:13-0500 Body temperature 97.3 [degF] Robert Furlong DO Work Phone: [facility] [employer] [facility] 10-03-2023 16:13-0500 Body weight 80.51 kg Robert Furlong DO Work Phone: [facility] [employer] [facility] 10-03-2023 16:13-0500 Diastolic blood pressure 60 mm[Hg] Robert Furlong DO Work Phone: [facility] [employer] [facility] 10-03-2023 16:13-0500 Heart rate 67 /min Robert Furlong DO Work Phone: [facility] [employer] 10-03-2023 16:13-0500 SaO2% (BldA) [Mass fraction] 98 % Robert Furlong DO Work Phone: [facility] [employer] [facility] 10-03-2023 16:13-0500 Systolic blood pressure 118 mm[Hg] Robert Furlong DO Work Phone: [facility] 09-26-2023 15:11-0500 Body height 165.1 cm Martin Conchita DPM Work Phone: [facility] 09-26-2023 15:11-0500 Body mass index (BMI) [Ratio] 29.29 kg/m2 Martin Conchita DPM Work Phone: [facility] 09-26-2023 15:11-0500 Body weight 79.83 kg Martin Conchita DPM Work Phone: [facility] 09-26-2023 15:11-0500 Diastolic blood pressure 80 mm[Hg] Martin Brown DPM Work Phone: [facility] 09-26-2023 15:11-0500 Heart rate 79 /min Martin Conchita DPM Work Phone: [facility] 09-26-2023 15:11-0500 Systolic blood pressure 133 mm[Hg] Martin Conchita DPM Work Phone: [facility] 09-17-2023 08:23-0500 Blood Pressure Location POLLY YUDY [facility] 09-17-2023 08:23-0500 Diastolic blood pressure 52 mm[Hg] POLLY YUDY [facility] 09-17-2023 08:23-0500 Heart rate 65 /min POLLY YUDY [facility] 09-17-2023 08:23-0500 Respiratory rate 16 /min POLLY YUDY [facility] 09-17-2023 08:23-0500 Systolic blood pressure 135 mm[Hg] POLLY YUDY [facility] 08-27-2023 10:30-0500 Body height 165.1 cm Valarie Javier Other [employer] Other 08-27-2023 10:30-0500 Body mass index (BMI) [Ratio] 29.28 kg/m2 Valarie Javier Other [employer] Other 08-27-2023 10:30-0500 Body temperature 97.2 [degF] Valarie Javier Other [employer] Other 08-27-2023 10:30-0500 Body weight 79.83 kg Valarie Javier Other [employer] Other 08-27-2023 10:30-0500 Diastolic blood pressure 80 mm[Hg] Valarie Javier Other [employer] Other 08-27-2023 10:30-0500 Respiratory rate 20 /min Valarie Javier Other [employer] Other 08-27-2023 10:30-0500 SaO2% (BldA) [Mass fraction] 93 % Valarie Javier Other [employer] Other 08-27-2023 10:30-0500 Systolic blood pressure 132 mm[Hg] Valarie Javier Other [employer] Other 07-25-2023 10:39-0500 Blood Pressure Location Elliott SOLIS [facility] 07-25-2023 10:39-0500 Diastolic blood pressure 82 mm[Hg] Elliott SOLIS [facility] 07-25-2023 10:39-0500 Heart rate 76 /min Elliott SOLIS [facility] 07-25-2023 10:39-0500 SaO2% (BldA) [Mass fraction] 97 % Elliott SOLIS [facility] 07-25-2023 10:39-0500 Systolic blood pressure 138 mm[Hg] Elliott SOLIS [facility] 07-05-2023 15:44-0500 Blood Pressure Location Cadyblaine CALIX [facility] 07-05-2023 15:44-0500 Diastolic blood pressure 83 mm[Hg] Cady STANG [facility] 07-05-2023 15:44-0500 Heart rate 70 /min Cady STANG [facility] 07-05-2023 15:44-0500 SaO2% (BldA) [Mass fraction] 99 % Cady STANG [facility] 07-05-2023 15:44-0500 Systolic blood pressure 138 mm[Hg] Cady STANG [facility] 05-20-2023 10:03-0400 Blood Pressure Location Cadyblaine KLEING [facility] 05-20-2023 10:03-0400 Diastolic blood pressure 80 mm[Hg] Cady STANG [facility] 05-20-2023 10:03-0400 Heart rate 75 /min Cady STANG [facility] 05-20-2023 10:03-0400 SaO2% (BldA) [Mass fraction] 98 % Cady STANG [facility] 05-20-2023 10:03-0400 Systolic blood pressure 130 mm[Hg] Cady STANG [facility] 02-26-2023 08:30-0400 Body height 165.1 cm Valarie Javier Other [employer] Other 02-26-2023 08:30-0400 Body mass index (BMI) [Ratio] 28.25 kg/m2 Valarie Javier Other [employer] Other 02-26-2023 08:30-0400 Body temperature 96.9 [degF] Valarie Javier Other [employer] Other 02-26-2023 08:30-0400 Body weight 77.02 kg Valarie Javier Other [employer] Other 02-26-2023 08:30-0400 Diastolic blood pressure 84 mm[Hg] Valarie Javier Other [employer] Other 02-26-2023 08:30-0400 Respiratory rate 20 /min Valarie Javier Other [employer] Other 02-26-2023 08:30-0400 SaO2% (BldA) [Mass fraction] Valarie Javier Other [employer] Other 02-26-2023 08:30-0400 Systolic blood pressure 138 mm[Hg] Valarie Javier Other [facility] [employer] Other 01-17-2023 10:04-0400 Diastolic blood pressure 76 mm[Hg] Poole SALAM [facility] 01-17-2023 10:04-0400 Heart rate 70 /min Poole SALAM [facility] 01-17-2023 10:04-0400 Mean blood pressure 100 mm[Hg] Poole SALAM [facility] 01-17-2023 10:04-0400 Respiratory rate 17 /min Poole SALAM [facility] 01-17-2023 10:04-0400 SaO2% (BldA) [Mass fraction] 99 % Poole SALAM [facility] 01-17-2023 10:04-0400 Systolic blood pressure 149 mm[Hg] Poole SALAM [facility] 01-17-2023 09:55-0400 Diastolic blood pressure 80 mm[Hg] Poole SALAM [facility] 01-17-2023 09:55-0400 Heart rate 74 /min Poole SALAM [facility] 01-17-2023 09:55-0400 Mean blood pressure 97 mm[Hg] Poole SALAM [facility] 01-17-2023 09:55-0400 Respiratory rate 15 /min Poole SALAM [facility] 01-17-2023 09:55-0400 SaO2% (BldA) [Mass fraction] 99 % Poole SALAM [facility] 01-17-2023 09:55-0400 Systolic blood pressure 132 mm[Hg] Poole SALAM [facility] 01-17-2023 09:50-0400 Diastolic blood pressure 79 mm[Hg] Poole SALAM [facility] 01-17-2023 09:50-0400 Heart rate 73 /min Poole SALAM [facility] 01-17-2023 09:50-0400 Mean blood pressure 94 mm[Hg] Poole SALAM [facility] 01-17-2023 09:50-0400 Respiratory rate 13 /min Poole SALAM [facility] 01-17-2023 09:50-0400 SaO2% (BldA) [Mass fraction] 98 % Poole SALAM [facility] 01-17-2023 09:50-0400 Systolic blood pressure 125 mm[Hg] Poole SALAM [facility] 01-17-2023 09:39-0400 Body temperature 98.24 [degF] Poolevenu CURRYAM [facility] 01-17-2023 08:35-0400 Blood Pressure Location Poolevenu CRAMER [facility] 01-17-2023 08:35-0400 Body temperature 98.06 [degF] Poolevenu CRAMER [facility] 11-21-2022 12:41-0400 Heart rate 61 /min Martin Arango [facility] 11-21-2022 12:41-0400 SaO2% (BldA) [Mass fraction] 97 % Martin Arango [facility] 11-21-2022 12:41-0400 Diastolic blood pressure 64 mm[Hg] Martin Arango [facility] 11-21-2022 12:41-0400 Mean blood pressure 85 mm[Hg] Martin Arango [facility] 11-21-2022 12:41-0400 Systolic blood pressure 128 mm[Hg] Martin Arango [facility] 11-21-2022 12:41-0400 Body temperature 96.98 [degF] Martin Arango [facility] 11-21-2022 12:40-0400 Respiratory rate 16 /min Martin Arango [facility] 11-21-2022 11:09-0400 Heart rate 66 /min Martin Arango [facility] 11-21-2022 11:09-0400 SaO2% (BldA) [Mass fraction] 100 % Martin Arango [facility] 11-21-2022 11:09-0400 Diastolic blood pressure 68 mm[Hg] Martin Arango [facility] 11-21-2022 11:09-0400 Mean blood pressure 84 mm[Hg] Martin Arango [facility] 11-21-2022 11:09-0400 Systolic blood pressure 116 mm[Hg] Martin Arango [facility] 11-21-2022 11:09-0400 Body temperature 98.06 [degF] Martin Arango [facility] 11-21-2022 11:08-0400 Respiratory rate 14 /min Martin Arango [facility] 11-21-2022 10:55-0400 Body temperature 97.16 [degF] Martin Arango [facility] 11-21-2022 10:55-0400 Diastolic blood pressure 85 mm[Hg] Martin Arango [facility] 11-21-2022 10:55-0400 Heart rate 65 /min Martin Arango [facility] 11-21-2022 10:55-0400 Mean blood pressure 98 mm[Hg] Martin Arango [facility] 11-21-2022 10:55-0400 Respiratory rate 18 /min Martin Arango [facility] 11-21-2022 10:55-0400 SaO2% (BldA) [Mass fraction] 98 % Martin Arango [facility] 11-21-2022 10:55-0400 Systolic blood pressure 123 mm[Hg] Martin Arango [facility] 11-21-2022 10:45-0400 Mean blood pressure 84 mm[Hg] Martin Arango [facility] 11-21-2022 10:45-0400 Respiratory rate 15 /min Martin Arango [facility] 11-21-2022 10:30-0400 Mean blood pressure 73 mm[Hg] Martin Arango [facility] 11-21-2022 10:30-0400 Respiratory rate 13 /min Martin Arango [facility] 11-21-2022 10:15-0400 Respiratory rate 1 /min Martin Arango [facility] 11-21-2022 07:43-0400 Mean blood pressure 100 mm[Hg] Martin Arango [facility] 11-21-2022 07:43-0400 Heart rate 62 /min Martin Arango [facility] 10-30-2022 15:25-0400 Blood Pressure Location Elliott Solis [facility] 10-30-2022 15:25-0400 Diastolic blood pressure 80 mm[Hg] Elliott Solis [facility] 10-30-2022 15:25-0400 Heart rate 70 /min Elliott Solis [facility] 10-30-2022 15:25-0400 SaO2% (BldA) [Mass fraction] 95 % Elliott Solis [facility] 10-30-2022 15:25-0400 Systolic blood pressure 126 mm[Hg] Elliott Solis [facility] 10-29-2022 14:56-0400 Diastolic blood pressure 86 mm[Hg] Inessa Nicci [facility] 10-29-2022 14:56-0400 Mean blood pressure 103 mm[Hg] Inessa Nicci [facility] 10-29-2022 14:56-0400 Systolic blood pressure 138 mm[Hg] Inessa Nicci [facility] 10-29-2022 14:50-0400 Blood Pressure Location Inessa Nicci [facility] 10-29-2022 14:50-0400 Body temperature 97.88 [degF] Inessa Nicci [facility] 10-29-2022 14:50-0400 Diastolic blood pressure 86 mm[Hg] Inessa Nicci [facility] 10-29-2022 14:50-0400 Heart rate 85 /min Inessa Nicci [facility] 10-29-2022 14:50-0400 Systolic blood pressure 141 mm[Hg] Inessa Nicci [facility] 10-20-2022 10:33-0500 Body temperature 95.9 [degF] Santos Landry [facility] 10-20-2022 10:33-0500 Diastolic blood pressure 73 mm[Hg] Santos Landry [facility] 10-20-2022 10:33-0500 Heart rate 62 /min Santos Landry [facility] 10-20-2022 10:33-0500 Respiratory rate 18 /min Santos Landry [facility] 10-20-2022 10:33-0500 SaO2% (BldA) [Mass fraction] 100 % Santos Landry [facility] 10-20-2022 10:33-0500 Systolic blood pressure 151 mm[Hg] Santos Landry [facility] 10-12-2022 13:06-0500 Body temperature 97.7 [degF] Santos Landry [facility] 10-12-2022 13:06-0500 Diastolic blood pressure 71 mm[Hg] Santos Landry [facility] 10-12-2022 13:06-0500 Heart rate 68 /min Santos Landry [facility] 10-12-2022 13:06-0500 Respiratory rate 18 /min Santos Landry [facility] 10-12-2022 13:06-0500 SaO2% (BldA) [Mass fraction] 98 % Santos Landry [facility] 10-12-2022 13:06-0500 Systolic blood pressure 126 mm[Hg] Santos Frantz [facility] 10-02-2022 12:31-0500 Blood Pressure Location Inessa Grajeda [facility] 10-02-2022 12:31-0500 Diastolic blood pressure 52 mm[Hg] Inessa Grajeda [facility] 10-02-2022 12:31-0500 Heart rate 56 /min Inessa Grajeda [facility] 10-02-2022 12:31-0500 SaO2% (BldA) [Mass fraction] 100 % Inessa Grajeda [facility] 10-02-2022 12:31-0500 Systolic blood pressure 136 mm[Hg] Inessa Carmenmetz [facility] 09-06-2022 10:09-0500 Blood Pressure Location Poole SALAM [facility] 09-06-2022 10:09-0500 Diastolic blood pressure 71 mm[Hg] Poole SALAM [facility] 09-06-2022 10:09-0500 Heart rate 70 /min Poole SALAM [facility] 09-06-2022 10:09-0500 Respiratory rate 22 /min Poole SALAM [facility] 09-06-2022 10:09-0500 Systolic blood pressure 145 mm[Hg] Poole SALAM [facility] 09-06-2022 10:05-0500 Blood Pressure Location Poole SALAM [facility] 09-06-2022 10:05-0500 Diastolic blood pressure 66 mm[Hg] Poole SALAM [facility] 09-06-2022 10:05-0500 Heart rate 66 /min Poole SALAM [facility] 09-06-2022 10:05-0500 Respiratory rate 20 /min Poole SALAM [facility] 09-06-2022 10:05-0500 SaO2% (BldA) [Mass fraction] 100 % Poole SALAM [facility] 09-06-2022 10:05-0500 Systolic blood pressure 94 mm[Hg] Poole SALAM [facility] 09-06-2022 10:00-0500 Heart rate 59 /min Poole SALAM [facility] 09-06-2022 10:00-0500 Respiratory rate 17 /min Poole SALAM [facility] 09-06-2022 10:00-0500 Systolic blood pressure 90 mm[Hg] Poole SALAM [facility] 09-06-2022 09:55-0500 SaO2% (BldA) [Mass fraction] 100 % Poole SALAM [facility] 09-06-2022 09:40-0500 Body temperature 96.62 [degF] Poole SALAM [facility] 09-06-2022 07:35-0500 Body temperature 96.62 [degF] Poole SALAM [facility] 07-05-2022 10:00-0500 Body height 165.1 cm Valarie Javier Other [facility] [employer] Other 07-05-2022 10:00-0500 Body mass index (BMI) [Ratio] 28.95 kg/m2 Valarie Javier Other [employer] Other 07-05-2022 10:00-0500 Body temperature 97 [degF] Valarie Javier Other [employer] Other 07-05-2022 10:00-0500 Body weight 78.93 kg Valarie Javier Other [employer] Other 07-05-2022 10:00-0500 Diastolic blood pressure 77 mm[Hg] Valarie Javier Other [employer] Other 07-05-2022 10:00-0500 Respiratory rate 20 /min Valarie Javier Other [employer] Other 07-05-2022 10:00-0500 SaO2% (BldA) [Mass fraction] Valarie Javier Other [employer] Other 07-05-2022 10:00-0500 Systolic blood pressure 137 mm[Hg] Valarie Javier Other [place] [employer] Other 05-15-2022 13:22-0400 Diastolic blood pressure 65 mm[Hg] Cady STANG [facility] 05-15-2022 13:22-0400 Mean blood pressure 85 mm[Hg] Cady STANG [facility] 05-15-2022 13:22-0400 Systolic blood pressure 126 mm[Hg] Cady STANG [facility] 05-15-2022 13:08-0400 Blood Pressure Location Cady STANG [facility] 05-15-2022 13:08-0400 Diastolic blood pressure 88 mm[Hg] Cady STANG [facility] 05-15-2022 13:08-0400 Heart rate 62 /min Cady STANG [facility] 05-15-2022 13:08-0400 Respiratory rate 18 /min Cady STANG [facility] 05-15-2022 13:08-0400 SaO2% (BldA) [Mass fraction] 100 % Cady STANG [facility] 05-15-2022 13:08-0400 Systolic blood pressure 140 mm[Hg] Cadyblaine CALIX [facility] 03-20-2022 13:16-0400 Diastolic blood pressure 72 mm[Hg] Elliott Solis [facility] 03-20-2022 13:16-0400 Heart rate 73 /min Elliott Solis [facility] 03-20-2022 13:16-0400 Mean blood pressure 87 mm[Hg] Elliott Solis [facility] 03-20-2022 13:16-0400 Respiratory rate 18 /min Elliott Solis [facility] 03-20-2022 13:16-0400 Systolic blood pressure 118 mm[Hg] Elliott Solis [facility] 03-06-2022 10:27-0400 Blood Pressure Location Cadyblaine CALIX [facility] 03-06-2022 10:27-0400 Diastolic blood pressure 78 mm[Hg] Cadyblaine KLEING [facility] 03-06-2022 10:27-0400 Heart rate 68 /min Cadyblaine KLEING [facility] 03-06-2022 10:27-0400 Respiratory rate 18 /min Cadyblaine KLEING [facility] 03-06-2022 10:27-0400 SaO2% (BldA) [Mass fraction] 98 % Cady STANG [facility] 03-06-2022 10:27-0400 Systolic blood pressure 137 mm[Hg] Cady STANG [facility] 01-11-2022 15:06-0400 Diastolic blood pressure 83 mm[Hg] Poole SALAM [facility] 01-11-2022 15:06-0400 Heart rate 61 /min Poolevenu CRAMER [facility] 01-11-2022 15:06-0400 Systolic blood pressure 136 mm[Hg] Zulema CURRYAM [facility] 12-11-2021 12:00-0400 Blood Pressure Location Donaldo PEARSON [facility] 12-11-2021 12:00-0400 Diastolic blood pressure 75 mm[Hg] Donaldo PEARSON [facility] 12-11-2021 12:00-0400 Heart rate 78 /min Donaldo PEARSON [facility] 12-11-2021 12:00-0400 Systolic blood pressure 107 mm[Hg] Donaldo PEARSON [facility] Encounters Encounter Date Encounter Type Care Provider Facility Start: 01-01-2024 End: 01-02-2024 ambulatory Cady Alva Facility:[facility] Start: 01-01-2024 End: 01-01-2024 Pain Management Cady Alva [facility] Start: 12-31-2023 End: 01-01-2024 ambulatory POLLY MARIANO Facility:[facility] Start: 12-31-2023 End: 12-31-2023 Patient encounter procedure POLLY MARIANO [facility] Start: 12-26-2023 End: 12-26-2023 ambulatory MARTIN ARANGO Not Available Start: 12-18-2023 End: 12-18-2023 ambulatory [facility] Start: 12-13-2023 End: 12-13-2023 ambulatory [facility] Start: 12-12-2023 End: 12-12-2023 ambulatory MARTIN ARANGO Not Available Start: 12-11-2023 End: 12-12-2023 ambulatory Andrew Eid Facility:[facility] Start: 12-11-2023 End: 12-11-2023 Pain Management Andrew Eid [facility] Start: 11-21-2023 Refill Robert augustin DO [facility] Start: 11-21-2023 End: 11-21-2023 ambulatory MARTIN ARANGO Not Available Start: 11-20-2023 End: 11-20-2023 ambulatory NURIA Sarah AYUSH Not Available Start: 11-06-2023 End: 11-07-2023 ambulatory Cady Alva Facility:[facility] Start: 11-06-2023 End: 11-06-2023 Pain Management Cady Alva [facility] Start: 11-04-2023 Refill Robert augustin DO Work Phone: [facility] Start: 11-01-2023 Orders Only Fiona Rockwell TESTER [employer] Work Phone: [facility] Start: 10-31-2023 End: 10-31-2023 ambulatory MARTIN ARANGO Not Available Start: 10-30-2023 Refill [facility] Comment on above: Anxiety state; Type 2 diabetes mellitus without complication, without long-term current use of insulin ([facility]); Type 2 diabetes mellitus with diabetic mononeuropathy, without long-term current use of insulin ([facility]) Start: 10-24-2023 End: 10-24-2023 ambulatory MARTIN ARANGO Not Available Start: 10-17-2023 End: 10-17-2023 ambulatory MARTIN ARANGO Not Available Start: 10-03-2023 End: 10-03-2023 ambulatory ROBERTRAFIA GIRON [facility] Start: 10-03-2023 End: 10-03-2023 Office outpatient visit 15 minutes Robert Giron DO Work Phone: [facility] Comment on above: Pre-op evaluation (P rimary Dx); Hallux valgus of right foot; Essential hypertension; Diabetic peripheral neuropathy ([facility]) Start: 10-03-2023 End: 10-03-2023 Preprocedural examination done Robert Giron DO Work Phone: [facility] Work Phone: Start: 09-27-2023 Telephone encounter Nuria [...] polyneuropathy, with long-term current use of insulin ([facility]); Contracture of right ankle; Bone spur of right foot Start: 09-26-2023 Refill Robert Pamela Carmenradha augustin DO Work Phone: [facility] Start: 09-20-2023 Refill Nuria moerira MD Work Phone: [facility] Comment on above: Chronic bilateral lo w back pain with bilateral sciatica; Diabetic peripheral neuropathy (CMS/HCC); Lumbar radiculopathy Start: 09-19-2023 End: 09-19-2023 ambulatory Valarie Javier Other [employer] Other Start: 09-19-2023 Telephone encounter Valarie Javier [facility] Start: 09-17-2023 End: 09-18-2023 ambulatory POLLY MARIANO Facility:[facility] Start: 09-17-2023 End: 09-17-2023 Patient encounter procedure POLLY MARIANO [facility] Start: 09-16-2023 End: 09-19-2023 ambulatory ROBERT GIRON [facility] Start: 09-08-2023 Refill Robert Worthy ng DO Work Phone: [facility] Start: 09-02-2023 Orders Only Robert Carmenlo ng DO Work Phone: [facility] Comment on above: Anxiety state Start: 08-28-2023 End: 08-28-2023 ambulatory NURIA SANCHEZ Not Available Start: 08-27-2023 End: 08-27-2023 ambulatory Valarie Javier Other [employer] Other Start: 08-27-2023 Office outpatient vi sit 25 minutes Valarie Javier [facility] Start: 08-23-2023 Orders Only Robert Carmenlo ng DO Work Phone: [facility] Comment on above: 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, sciatica laterality unspecified Start: 08-20-2023 End: 08-20-2023 ambulatory ANDRIA RAUL Not Available Start: 08-16-2023 Refill Robert Carmenlo ng DO Work Phone: [facility] Comment on above: Oral thrush Start: 08-09-2023 End: 08-09-2023 ambulatory FRENCH LEVINE Not Available Start: 08-08-2023 End: 08-08-2023 ambulatory MARTIN ARANGO Not Available Start: 08-06-2023 End: 08-06-2023 ambulatory ИВАН HARMAN Not Available Start: 08-01-2023 End: 08-01-2023 ambulatory ИВАН HARMAN Not Available Start: 07-25-2023 End: 07-26-2023 ambulatory XXXX NONE Facility:[facility] Start: 07-25-2023 End: 07-25-2023 Patient encounter procedure Elliott SOLIS [facility] Start: 07-22-2023 End: 07-22-2023 ambulatory RITCHIE Coto MIRTA Not Available Start: 07-18-2023 End: 07-18-2023 ambulatory ИВАН HARMAN Not Available Start: 07-08-2023 End: 07-08-2023 ambulatory ROSHAN Grewal JEWEL Not Available Start: 07-05-2023 End: 07-06-2023 ambulatory XXXX NONE Facility:[facility] Start: 07-05-2023 End: 07-05-2023 Patient encounter procedure Cady CALIX [facility] Start: 07-04-2023 End: 07-04-2023 ambulatory MARTIN A CONCHITA Not Available Start: 06-24-2023 End: 06-25[facility]20[facility] Start: 06-14-2023 End: 06-15-2023 ambulatory 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 Cady CALIX Facility:[facility] Start: 06-14-2023 End: 06-14-2023 Patient encounter procedure Cady CALIX [facility] Start: 05-22-2023 End: 05-23-2023 ambulatory Inessa Grajeda Facility:[facility] Start: 05-22-2023 End: 05-22-2023 Patient encounter procedure Inessa Grajeda [facility] Start: 05-20-2023 End: 05-21-2023 ambulatory XXXX NONE Facility:[facility] Start: 05-20-2023 End: 05-20-2023 Patient encounter procedure Cady CALIX [facility] Start: 05-16-2023 End: 05-17-2023 ambulatory XXXX NONE Facility:[facility] Start: 04-04-2023 End: 04-04-2023 ambulatory Valarie Javier Other [employer] Other Start: 04-04-2023 Telephone encounter Valarie Javier [facility] Start: 04-03-2023 End: 04-03-2023 ambulatory Valarie Javier Facility:[facility] Start: 04-03-2023 End: 04-03-2023 ambulatory DO Robert Furlong Work Phone: [facility] Work Phone: Start: 04-03-2023 End: 04-03-2023 Patient encounter procedure DO Robert Furlong Work Phone: [facility] [address] Work Phone: Start: 02-26-2023 End: 02-26-2023 ambulatory Valarie Javier Other [employer] Other Start: 02-26-2023 Office outpatient vi sit 25 minutes Valarie Javier [facility] Start: 01-30-2023 End: 01-31-2023 ambulatory POLLY MARIANO Facility:[facility] Start: 01-29-2023 End: 01-30-2023 ambulatory Inessa Grajeda Facility:[facility] Start: 01-17-2023 End: 01-18-2023 ambulatory Poole SALAM Facility:[facility] Start: 01-17-2023 End: 01-17-2023 Patient encounter procedure Poole SALAM [facility] Start: 12-22-2022 End: 01-16-[address] DOCTOR GALLO Facility:[facility] Start: 12-21-2022 End: 12-22-[address] DOCTOR GALLO Facility:[facility] Start: 11-29-2022 End: 11-29-[address] ROBERT GIRON Facility:[facility] Start: 11-26-2022 End: 11-26-[address] ROBERT GIRON Facility:[facility] Start: 11-21-2022 End: 11-21-2022 Admission to same day surgery center Martin Arango [facility] Start: 10-30-2022 End: 10-30-2022 Patient encounter procedure Elliott Solis [facility] Start: 10-29-2022 End: 10-29-2022 Patient encounter procedure Inessa Grajeda [facility] Start: 10-20-2022 End: 10-20-2022 Emergency department patient visit Santos Landry [facility] Start: 10-12-2022 End: 10-12-2022 Emergency department patient visit Santos Landry [facility] Start: 10-02-2022 End: 10-02-2022 Patient encounter procedure Inessa Grajeda [facility] Start: 09-14-2022 End: 11-01-2022 Pre-admission assessment Zulema CRAMER [facility] Start: 09-10-2022 End: 09-11-[address] FREDERICK MAHARAJ . Facility:[facility] Start: 09-06-2022 End: 09-06-2022 Patient encounter procedure Zulema CRAMER [facility] Start: 09-04-2022 End: 09-04-2022 ambulatory Valarie Javier Other [employer] Other Start: 09-04-2022 Telephone encounter Valarie Javier [facility] Start: 08-10-2022 ambulatory ELIUD JAJA Facility :[facility] Start: 08-06-2022 End: 08-07-[address] FREDERICK MAHARAJ . Facility:[facility] Start: 07-05-2022 End: 07-05-2022 ambulatory Valarie Javier Other [employer] Other Start: 07-05-2022 Office outpatient vi sit 25 minutes Valarie Javier [facility] Start: 07-04-2022 End: 07-05-2022 ambulatory VALARIE JAVIER Facility:[facility] Start: 07-03-2022 End: 07-03-[address] RAULITO CHA . Facility:[facility] Start: 06-26-2022 End: 11-28-2022 Recurring Poole BELA [facility] Start: 06-08-2022 End: 06-09-[address] DOCTOR GALLO Facility:[facility] Start: 05-15-2022 End: 05-15-2022 Patient encounter procedure Cady CALIX [facility] Start: 05-09-2022 End: 09-09-2022 Recurring Zulema CRAMER [facility] Start: 05-09-2022 End: 06-19-2022 Pre-admission assessment Zulema CRAMER [facility] Start: 04-30-2022 End: 05-01-[address] ROBERT GIRON Facility:[facility] Start: 04-09-2022 End: 05-02-2022 Pre-admission assessment Donaldo PEARSON [facility] Start: 04-06-2022 End: 04-07-2022 ambulatory ELIUD JAJA Facility:[facility] Start: 04-01-2022 End: 04-01-2022 ambulatory JAMAR CAROLA . Facility:[facility] Start: 03-28-2022 End: 03-29-[address] DOCTOR GALLO Facility:[facility] Start: 03-20-2022 End: 03-20-2022 Patient encounter procedure Elliott Solis [facility] Start: 03-13-2022 End: 03-13-2022 ambulatory JAMAR SRIVASTAVA . Facility:[facility] Start: 03-06-2022 End: 09-07-2022 Pre-admission assessment Elliott Solis [facility] Start: 03-06-2022 End: 03-06-2022 Patient encounter procedure Cady CALIX [facility] Start: 02-08-2022 End: 06-20-2022 Recurring Zulema CRAMER [facility] Start: 02-08-2022 End: 02-09-2022 Pre-admission assessment Zulema CRAMER [facility] Start: 02-01-2022 End: 02-01-2022 Patient encounter procedure Zulema CURRYAM [facility] Start: 01-11-2022 End: 05-02-2022 Recurring Zulema CRAMER [facility] Start: 01-11-2022 End: 01-11-2022 Patient encounter procedure Zulema CRAMER [facility] Start: 12-20-2021 End: 03-22-2022 Recurring Zulema CRAMER [facility] Start: 12-11-2021 End: 12-11-2021 Patient encounter procedure Donaldo PEARSON [facility] Start: 11-21-2021 End: 11-21-2021 Patient encounter procedure Inessa Grajeda [facility] Start: 10-12-2021 End: 01-30-2022 Recurring Martin Arango [facility] Procedures Date Procedure Procedure Detail Performing Clinician Start: 12-13-2023 Follow-up visit Follow-up JOEL ALSTON Start: 12-11-2023 Epidural injection of lumbar spine using fluoroscopic guidance Cady Alva Comment on above: L4-L5 no relief, made worse Start: 10-03-2023 Adult depression screening assessment Robert Furlong DO Work Phone: Start: 09-27-2023 Mammography Robert Furlong DO Work Phone: Start: 06-20-2023 Adult depression screening assessment Robert Furlong DO Work Phone: Start: 04-03-2023 CT of lungs DO Robert Furlong Work Phone: Start: 01-21-2023 Colonoscopy Robert Furlong DO Work Phone: Start: 01-17-2023 Colonoscopy Poolevenu CRAMER Start: 11-21-2022 Hammer toe (disorder) Martin Arango Start: 11-21-2022 Metatarsal bone structure (body structure) Martin Arango Start: 10-22-2022 Microalbumin [Mass/volume] in Urine by Test strip Robert Worthyng DO Work Phone: Start: 09-10-2022 Mammography Robert Worthyng DO Work Phone: Start: 03-29-2022 Esophagogastroduodenoscopy Zulema CRAMER Comment on above: esophageal dilation, small gastric bezoa r Start: 11-08-2021 Peroneal tendon (body structure) Inessa Wallis Comment on above: right peroneal tendon repair [...] Start: 05-07-2018 Decompression of tarsal tunnel Inessa sams Comment on above: left Start: 02-15-2016 Right tarsal tunnel release Inessa colón Start: 08-17-2015 Left instep plantar fasciotomy with division of soft tissue & fascia & muscle. Inessa Grajeda Start: 06-22-2015 right instep plantar fasciotomy with division of muscle and fascia Inessa Grajeda Appendectomy Inessa Grajeda Arthroscopy of knee Inessa Bob Breast surgery (qualifier value) Inessa Grajeda Comment on above: x 2 - removal of milk ducts Cholecystectomy Inessa colón Colonoscopy Inessa Grajeda Colonoscopy [facility] PATRICIO Cystopexy Inessa Grajeda Decompression of median nerve Inessa Grajeda Comment on above: x 2 Decompression of ulnar nerve Inessa Grajeda Comment on above: x 2 Esophagogastroduodenoscopy [facility] Nicci Esophagogastroduodenoscopy [facility] [place] Comment on above: Antral erosions Excision of ganglion cyst Be Nicci Extracorporeal shock wave lithotripsy of calculus of kidney Inessa Grajeda Hysterectomy Inessa Grajeda ingrown toenail removal 10 M [employer] SALAM Comment on above: x3 ingrown toenail removal 11 M [employer] SALAM Comment on above: x3 ingrown toenail removal 12 A gab[employer]le [employer] Comment on above: x3 ingrown toenail removal 9 Nicci Comment on above: x3 Ligation of [...] Screening for malignant neoplasm of colon Colonoscopy [facility] Start: 01-05-2025 ambulatory Ambulatory Facility:[facility] Start: 10-03-2024 Adult BMI Screening Adult BMI Screening [facility] Start: 10-03-2024 Depression Screening Depression Screening [facility] Start: 10-03-2024 Tobacco Screening Tobacco Screening [facility] Start: 09-27-2024 Screening for malignant neoplasm of breast Mammogram [facility] Start: 08-05-2024 Adult BMI Screening Adult BMI Screening [facility] Start: 08-05-2024 Tobacco Screening Tobacco Screening [facility] Start: 07-10-2024 Adult BMI Follow Up Plan Adult BMI Follow Up Plan [facility] Start: 07-08-2024 Diabetic foot examination Diabetic Foot Exam [facility] Start: 06-20-2024 Depression Screening Depression Screening [facility] Start: 04-19-2024 Influenza vaccination Influenza Vaccine [facility] Start: 10-28-2023 End: 10-28-2023 Patient encounter procedure 10/28/2023 3:20 PM EDT Office Visit [facility] [address] [place] [address] Nuria Sanchez MD [address] [place] [id number] [facility] Start: 10-23-2023 Urine screening for protein Urine Microalbumin [facility] Start: 10-17-2023 End: 10-17-2023 Patient encounter procedure [facility] Start: 10-09-2023 End: 10-09-2023 Patient encounter procedure 10/09/2023 8:30 AM EST Procedure Visit [facility] Martin Arango DPM [address] [address] [facility] Start: 10-03-2023 End: 10-03-2023 Patient encounter procedure 10/03/2023 3:40 PM EST [facility] [address] [place] [address] Robert Giron, [address], [facility] [place] [address] [facility] Start: 09-26-2023 End: 09-26-2023 Patient encounter procedure 09/26/2023 3:10 PM EST Office Visit [facility] [address] [facility] [address] [place] [id number] Martin Arango DPM [address] [address] [facility] Start: 09-16-2023 End: 09-16-2023 ambulatory 09/16/2023 8:30 AM EST Infant Monitor [facility] Infant Monitor [address] [place] [id number] [facility] Monitor Start: 09-10-2023 Screening for malignant neoplasm of breast Mammogram [facility] Start: 2020 Administration of varicella zoster vaccine Zoster (Shingles) Vaccine (1 of 2) [facility] Start: 1989 DTaP,Tdap and Td Vaccines (1 - Tdap) DTaP,Tdap and Td Vaccines (1 - Tdap) [facility] Start: 1970 Glaucoma screening Diabetic Ophthalmology Exam [facility] Immunizations Immunization Date Immunization Notes Care Provider Fa cility 06-24-2023 Covid-19,mrna, Lnp-s , Pf, 50mcg/0.5ml 12+ Robert Giron DO Work Phone: [facility] 06-24-2023 influenza virus vaccine, unspecified formulation POLLY MARIANO [facility] 04-15-2020 influenza virus vaccine, unspecified formulation Cadyblaine KLEINPamela [facility] 06-02-2019 hepatitis A vaccine, adult dosage Cadyblaine CALIX [facility] 11-21-2018 hepatitis A vaccine, adult dosage Cadyblaine KLEING [facility] NEGATED: Highlighted row has not occurred!04-29-2023 influenza virus vaccine, unspecified formulation Cady CALIX [facility] NEGATED: Highlighted row has not occurred!10-29-2022 influenza virus vaccine, unspecified formulation Inessa Grajeda [facility] NEGATED: Highlighted row has not occurred!09-14-2022 influenza virus vaccine, unspecified formulation Inessa Grajeda [facility] NEGATED: Highlighted row has not occurred!05-09-2022 influenza virus vaccine, unspecified formulation Cady FIFI [facility] NEGATED: Highlighted row has not occurred!12-11-2021 influenza virus vaccine, unspecified formulation Donaldo PEARSON [facility] NEGATED: Highlighted row has not occurred!12-11-2021 SARS-CoV-2 (COVID-19) Ad26 vaccine, recombinant Donaldo PEARSON [facility] NEGATED: Highlighted row has not occurred!11-07-2021 influenza virus vaccine, unspecified formulation Inessa Grajeda [facility] NEGATED: Highlighted row has not occurred!09-04-2021 SARS-CoV-2 (COVID-19) Ad26 vaccine, recombinant Inessa Grajeda [facility] Payers Date Payer Category Payer Self-pay [id number] 2017 Medicaid [id number] 1970 Unknown [id number] 2.16.84 0.1.076535.3.579.2.593 1970 Unknown [id number] 2.16.84 0.1.453144.3.579.2.593 1970 Unknown [id number] 2.16.84 0.1.496119.3.579.2.593 1970 Unknown [id number] 2.16.84 0.1.537910.3.579.2.593 1970 Unknown [id number] 2.16.84 0.1.581461.3.579.2.593 1970 Unknown [id number] 2.16.84 0.1.804726.3.579.2.593 1970 Unknown [id number] 2.16.84 0.1.205497.3.579.2.593 1970 Unknown [id number] 2.16.84 0.1.142956.3.579.2.593 1970 Unknown [id number] 2.16.84 0.1.960185.3.579.2.593 1970 Unknown [id number] 2.16.84 0.1.084152.3.579.2.593 1970 Unknown [id number] 2.16.84 0.1.878236.3.579.2.593 1970 Unknown [id number] 2.16.84 0.1.841593.3.579.2.593 1970 Unknown [id number] 2.16.84 0.1.147025.3.579.2.593 1970 Unknown [id number] 2.16.84 0.1.122840.3.579.2.593 1970 Unknown [id number] 2.16.84 0.1.370557.3.579.2.593 1970 Unknown [id number] 2.16.8 40.1.167483.3.579.2.176 1970 Unknown [id number] 2.16.8 40.1.334107.3.579.2.1286 1970 Unknown [id number] 2.16.8 40.1.869213.3.579.2.1286 1970 Unknown [id number] 2.16.8 40.1.811235.3.579.2.1286 1970 Unknown [id number] 2.16.8 40.1.251499.3.579.2.1286 1970 Unknown [id number] 2.16.84 0.1.127516.3.579.2.1259 1970 Unknown [id number] 2.16.84 0.1.806220.3.579.2.1259 1970 Unknown [id number] 2.16.84 0.1.800742.3.579.2.1259 1970 Unknown [id number] 2.16.84 0.1.579964.3.579.2.1259 1970 Unknown [id number] 2.16.84 0.1.933095.3.579.2.1259 1970 Unknown [id number] 2.16.84 0.1.864198.3.579.2.1259 1970 Unknown [id number] 2.16.84 0.1.174258.3.579.2.1259 1970 Unknown [id number] 2.16.84 0.1.572472.3.579.2.1259 1970 Unknown [id number] 2.16.84 0.1.921022.3.579.2.1259 1970 Unknown [id number] 2.16.84 0.1.207752.3.579.2.9 1970 Unknown [id number] 2.16.84 0.1.781320.3.579.2.9 1970 Unknown [id number] 2.16.840 .1.481390.3.579.2.9 1970 Unknown [id number] 2.16.840 .1.492006.3.579.2.9 1970 Unknown [id number] 2.16.840 .1.275955.3.579.2.1259 1970 Unknown [id number] 2.16.840 .1.849994.3.579.2.1259 1970 Unknown [id number] 2.16.840 .1.681601.3.579.2.1259 1970 Unknown [id number] 2.16.840 .1.145577.3.579.2.1259 1970 Unknown [id number] 2.16.840 .1.264236.3.579.2.9 1970 Unknown [id number] 2.16.840 .1.261217.3.579.2.1259 1970 Unknown [id number] 2.16.840 .1.126315.3.579.2.1259 1970 Unknown [id number] 2.16.8 40.1.036099.3.579.2.727 1970 Unknown [id number] 2.16.8 40.1.738057.3.579.2.727 1970 Unknown [id number] 2.16.8 40.1.828429.3.579.2.72 1970 Unknown [id number] 2.16.8 40.1.739930.3.579.2.72 1970 Unknown [id number] 2.16.8 40.1.211465.3.579.272 1970 Unknown [id number] 2.16.8 40.1.727344.3.579.272 1970 Unknown [id number] 2.16.8 40.1.874896.3.579.272 1970 Unknown [id number] 2.16.8 40.1.587216.3.579.272 1970 Unknown [id number] 2.16.8 40.1.744538.3.579.272 1970 Unknown [id number] 2.16.8 40.1.666713.3.579.2.727 1970 Unknown [id number] 2.16.8 40.1.981139.3.579.2.72 1970 Unknown [id number] 2.16.8 40.1.691214.3.579.2727 1970 Unknown [id number] 2.16.8 40.1.350497.3.579.272 1970 Unknown [id number] 2.16.8 40.1.606940.3.579.2.727 1970 Unknown [id number] 2.16.8 40.1.677757.3.579.2.727 1959 Medicaid [id number] 1959 Private Health Insurance [id number] 1959 Unknown [id number] 1959 Unknown [id number] Unknown [id number] 2.16.8 40.1.587186.3.579.2.531 Social History Date Type Detail Facility Start: 11-07-2021 End: 12-31-2023 Tobacco smoking status Heavy tobacco smoker (finding) [facility] Comment on above: 1 pack per day smoke r Start: 01-24-2023 End: 07-08-2023 Sex Assigned At Female [facility] Comment on above: 1 ppd smokes 1 ppd. Tobacco smoking status Never [facility] Start: 1970 Sex Assigned At Female F [facility] Tobacco smoking status No Smokin g Status Entered [facility] Start: 01-04-2022 End: 04-15-2023 Tobacco smoking status NHIS Smoker (finding) [facility] Start: 07-08-2023 Tobacco smoking stat us CAIS Ex-smoker [facility] End: 04-15-2023 History of tobacco use Cigarette Smoker [facility] Start: 01-24-2023 End: 07-08-2023 Cigarettes smoked current (pack per day) - Reported 0.[address] [facility] [employer] [facility] Start: 06-20-2023 End: 07-08-2023 Tobacco use and exposure Smokeless tobacco non-user [facility] Start: 08-05-2023 End: 10-03-2023 Alcohol intake Ex-drinker (finding) [facility] Has the [employer], or [employer] threatened to shut off services in your home in past 12Mo No [facility] [employer] [facility] Are you now , , , , never or living with a partner? [facility] How often to you hav e a drink containing alcohol? Monthly or less [facility] How many standard drinks containing alcohol do you have on a typical day? 3 or 4 [facility] How often do you hav e 6 or more drinks on 1 occasion? Never [facility] [employer] [facility] How hard is it for y ou to pay for the very basics like food, housing, medical care, and heating Not very hard [facility] Do you feel stress - tense, restless, nervous, or anxious, or unable to sleep at night because your mind is troubled all the time - these days [OSQ] To some extent [facility] Start: 07-08-2023 Tobacco Comment Smoke 1 PPD x 10 yea rs [facility] Start: 1970 Sex Assigned At Not on file P [facility] Start: 06-20-2023 Tobacco smoking stat [facility] Smokes tobacco daily [facility] History of tobacco use Passive smoker [facility] Start: 02-21-2023 Alcohol Comment caffeine 1-2 c ups per day [facility] Medical Equipment Procedure Code Equipment Code Equipment Origin al Text Equipment Identifier Dates Phacoemulsification of cataract with intraocular lens implantation Posterior-chamber intraocular lens, pseudophakic ()[id number] FDA Start: 12-14-2021 Phacoemulsification of cataract with intraocular lens implantation Posterior-chamber intraocular lens, pseudophakic ()[id number] FDA Start: 01-04-2022 HAMMERTOE REPAIR Brown DPM, [...] Foot R FDA Start: 11-21-2022 HAMMERTOE REPAIR Conchita RIZO, Martin A 11/21/22 Non Biological Foot R FDA Start: 11-21-2022 HAMMERTOE REPAIR Conchita DPNnamdi, Martin A 11/21/22 Non Biological Foot R FDA Start: 11-21-2022 HAMMERTOE REPAIR Conchita RIZO, Martin A 11/21/22 Non Biological Foot R FDA Start: 11-21-2022 Functional Status Date Assessment Result Facility 01-01-2024 Functional Status N/A [facility] 12-31-2023 Functional Status N/A [facility] 11-06-2023 Functional Status N/A [facility] 09-17-2023 Functional Status N/A [facility] 07-25-2023 Functional Status No [facility] 07-05-2023 Functional Status No [facility] 05-20-2023 Functional Status No [facility] 01-17-2023 Functional Status N/A [facility] 10-30-2022 Functional Status No [facility] 10-29-2022 Functional Status N/A [facility] 10-20-2022 Functional Status N/A [facility] 10-12-2022 Functional Status N/A [facility] 10-02-2022 Functional Status N/A [facility] 09-06-2022 Functional Status N/A [facility] 05-15-2022 Functional Status No [facility] 03-06-2022 Functional Status N/A [facility] Clinical Notes 04-19-2021 to 01-01-2024 Note Date & Type Note Facility 01-01-2024 Evaluation + Plan note Extrac emeterio from: Title:Pain Managment Follow up Author:Cady Baires Date:01/01/24 Impression and Plan Patient is a 53-year-old female with a past medical history significant lumbar stenosis, lumbar neuritis, neck pain, cervical neuritis and fibromyalgia. In regards to her lumbar stenosis and lumbar neuritis recent epidural did not help and she is in fact already set up to get a second opinion from a spine surgeon. In regards to her neck pain and cervical neuritis she is getting ready to start physical therapy but she does not recall where her requisition for this is. We will give her another 1 today. In regards to her fibromyalgia she is allergic to a multitude of medications at this time, she is not able to take all the medications that we would utilize for this due to allergies. We had discussed a second opinion over the phone and she did not want to do so. At this time she is going to pursue the physical therapy and follow-up in 8 to 10 weeks. Call clinic sooner if necessary. OARRS reviewed TU score: 68% Future Appointments Appointment Date:01/30/2024 02:15:00 PM Scheduled Provider:En Carmen PA-C [facility] Type:Cardiology Follow Up (FT) Appointment Date:02/26/2024 11:15:00 AM Scheduled Provider:Andrew Eid DO [facility] Type:Pain Management - Follow Up (FT) Appointment Date:01/05/2025 01:00:00 PM Scheduled Provider:POLLY MARIANO PA-C Location:[facility] Appointment Type:URO Office Visit Future Scheduled Tests Laboratory* Pancreatic Elastase, Fecal 01/29/23 * Fecal WBC Lactoferrin 01/29/23 * Giardia lamblia, Direct Detection EIA 01/29/23 * O & P Exam, Routine 01/29/23 * Clostridium Difficile PCR 01/29/23 * Enteric Panel by PCR 01/29/23 Radiology* Echo Transthoracic Complete 05/20/23 [facility]14[facility]2024 Hospital Discharge instructions Patient Education 12/31/2023 12:57:29 Urinary Incontinence Urinary Incontinence Urinary incontinence refers to a condition in which a person is unable to control where and when topass urine. A person with this condition will urinate involuntarily. This means that the person urinates when he or she does not mean to. What are the causes? This condition may be caused by: Medicines. Infections. Constipation. Overactive bladder muscles. Weak bladder muscles. Weak pelvic floor muscles. These muscles provide support for the bladder, intestine, and, in women,the uterus. Enlarged prostate in men. The prostate is a gland near the bladder. When it gets too big, it can pinch the urethra. With the urethra blocked, the bladder can weaken and lose the ability to empty properly. Surgery. Emotional factors, such as anxiety, stress, or post-traumatic stress disorder (PTSD). Spinal cord injury, nerve injury, or other neurological conditions. Pelvic organ prolapse. This happens in women when organs move out of place and into the vagina. This movement can prevent the bladder and urethra from working properly. What increases the risk? The following factors may make you more likely to develop this condition: Age. The older you are, the higher the risk. Obesity. Being physically inactive. and childbirth. Menopause. Diseases that affect the nerves or spinal cord. Long-term, or chronic, coughing. This can increase pressure on the bladder and pelvic floor muscles. What are the signs or symptoms? Symptoms may vary depending on the type of urinary incontinence you have. They include: A sudden urge to urinate, and passing urine involuntarily before you can get to a bathroom (urge incontinence). Suddenly passing urine when doing activities that force urine to pass, such as coughing, laughing, exercising, or sneezing (stress incontinence). Needing to urinate often but urinating only a small amount, or constantly dribbling urine (overflowincontinence). Urinating because you cannot get to the bathroom in time due to a physical disability, such as arthritis or injury, or due to a communication or thinking problem, such as Alzheimer's disease (functional incontinence). How is this diagnosed? This condition may be diagnosed based on: Your medical history. A physical exam. Tests, such as: ?Urine tests. ?X-rays of your kidney and bladder. ?Ultrasound. ?CT scan. ?Cystoscopy. In this procedure, a health care provider inserts a tube with a light and camera (cystoscope) through the urethra and into the bladder to check for problems. ?Urodynamic testing. These tests assess how well the bladder, urethra, and sphincter can store and release urine. There are different types of urodynamic tests, and they vary depending on what the test is measuring. To help diagnose your condition, your health care provider may recommend that you keep a log of when you urinate and how much you urinate. How is this treated? Treatment for this condition depends on the type of incontinence that you have and its cause. Treatment may include: Lifestyle changes, such as: ?Quitting smoking. ?Maintaining a healthy weight. ?Staying active. Try to get 150 minutes of moderate-intensity exercise every week. Ask your health care provider which activities are safe for you. ?Eating a healthy diet. ?Avoid high-fat foods, like fried foods. ?Avoid refined carbohydrates like white bread and white rice. ?Limit how much alcohol and caffeine you drink. ?Increase your fiber intake. Healthy sources of fiber include beans, whole grains, and fresh fruitsand vegetables. Behavioral changes, such as: ?Pelvic floor muscle exercises. ?Bladder training, such as lengthening the amount of time between bathroom breaks, or using the bathroom at regular intervals. ?Using techniques to suppress bladder urges. This can include distraction techniques or controlled breathing exercises. Medicines, such as: ?Medicines to relax the bladder muscles and prevent bladder spasms. ?Medicines to help slow or prevent the growth of a man's prostate. ?Botox injections. These can help relax the bladder muscles. Treatments, such as: ?Using pulses of electricity to help change bladder reflexes (electrical nerve stimulation). ?For women, using a medical advisor to prevent urine leaks. This is a small, tampon-like, disposabledevice that is inserted into the urethra. ?Injecting collagen or carbon beads (bulking agents) into the urinary sphincter. These can help thicken tissue and close the bladder opening. ?Surgery. Follow these instructions at home: Lifestyle Limit alcohol and caffeine. These can fill your bladder quickly and irritate it. Keep yourself clean to help prevent odors and skin damage. Ask your health care provider about special skin creams and cleansers that can protect the skin from urine. Consider wearing pads or adult diapers. Make sure to change them regularly, and always change them right after experiencing incontinence. General instructions Take xpmh-lsf-hfhywcg and prescription medicines only as told by your health care provider. Use the bathroom about every 3 4 hours, even if you do not feel the need to urinate. Try to empty your bladder completely every time. After urinating, wait a minute. Then try to urinate again. Make sure you are in a relaxed position while urinating. If your incontinence is caused by nerve problems, keep a log of the medicines you take and the times you go to the bathroom. Keep all follow-up visits. This is important. Where to find more information National [place] of Diabetes and Digestive and Kidney Diseases: www.niddk.nih.gov [place] [employer]: www.urologyhealth.org Contact a health care provider if: You have pain that gets worse. Your incontinence gets worse. Get help right away if: You have a fever or chills. You are unable to urinate. You have redness in your groin area or down your legs. Summary Urinary incontinence refers to a condition in which a person is unable to control where and when topass urine. This condition may be caused by medicines, infection, weak bladder muscles, weak pelvic floor muscles, enlargement of the prostate (in men), or surgery. Factors such as older age, obesity, and childbirth, menopause, neurological diseases, andchronic coughing may increase your risk for developing this condition. Types of urinary incontinence include urge incontinence, stress incontinence, overflow incontinence, and functional incontinence. This condition is usually treated first with lifestyle and behavioral changes, such as quitting smoking, eating a healthier diet, and doing regular pelvic floor exercises. Other treatment options include medicines, bulking agents, medical devices, electrical nerve stimulation, or surgery. This information is not intended to replace advice given to you by your health care provider. Make sure you discuss any questions you have with your health care provider. Document Revised: 03/10/2021 Document Reviewed: 03/10/2021 [employer] Patient Education 2022 [employer]. Follow Up Care 09/17/2023 08:57:54 With:POLLY MARIANO PA-C, URL Address: [address] [place] [id number] When: Unknown [facility] 04-24-2024 Note [id number] NoteDiagnosis: M54.16, lumbar radiculopathy Procedure: L4/5 lumbar interlaminar epidural steroid injection under fluoroscopic guidance Anesthesia: Local Complications: none Patient's allergies were extensively reviewed with her, it does appear that she has a shellfish allergy and we elected to use gadolinium based contrast to avoid any reactivity with iodine-based contrast. We also discussed her Decadron allergy, she gets facial flushing and did not have any symptoms of rashes or airway symptoms and we discussed that this may be a normal reaction to steroids howeverwe are still using methylprednisolone. After informed consent was obtained, the patient was brought to the procedure suite and placed in the prone position. Pulse oximetry and blood pressure were monitored throughout. Low back areas prepped and draped in the usual sterile fashion. Using fluoroscopic guidance, the skin and subcutaneous tissue overlying the needle trajectory were anesthetized with 2% lidocaine. A 17-gauge Touhy needle was inserted and directed by fluoroscopy. Entry into the epidural space was confirmed using the nstc-yu-jizebdtjao technique and 2 cc of air. Injection of contrast revealed appropriate spread without vascular uptake. 4 mL of normal saline plus 40 mg of methylprednisolone was then injected. The needlewas removed and the patient was then transferred to the recovery room in stable condition. The patient tolerated the procedure well. There were no apparent complications. Follow-up: The patient will update us on the response to this procedure, and agrees to continue currently prescribed/recommended therapies.[facility] Comment on above:Result Comment: Electronically Signed By: Andrew Eid DO\.br\Date and Time Signed: 12/11/23 09:29 [id number] Evaluation + Plan note Extracted from: Title:L4/5 interlaminar epid ural steroid injection Author:Andrew Eid DO Date:12/11/23 Diagnosis: M54.16, lumbar ra diculopathy Procedure: L4/5 lumbar interlaminar epidural steroid injection under fluoroscopic guidance Anesthesia: Local Complications: none Patient's allergies were extensively reviewed with her, it does appear that she has a shellfish allergy and we elected to use gadolinium based contrast to avoid any reactivity with iodine-based contrast. We also discussed her Decadron allergy, she gets facial flushing and did not have any symptoms of rashes or airway symptoms and we discussed that this may be a normal reaction to steroids however we are still using methylprednisolone. After informed consent was obtained, the patient was brought to the procedure suite and placed in the prone position. Pulse oximetry and blood pressure were monitored throughout. Low back areas prepped and draped in the usual sterile fashion. Using fluoroscopic guidance, the skin and subcutaneous tissue overlying the needle trajectory were anesthetized with 2% lidocaine. A 17-gauge Touhy needle was inserted and directed by fluoroscopy. Entry into the epidural space was confirmed using the csos-wb-xwpazxosrb technique and 2 cc of air. Injection of contrast revealed appropriate spread without vascular uptake. 4 mL of normal saline plus 40 mg of methylprednisolone was then injected. The needle was removed and the patient was then transferred to the recovery room in stable condition. The patient tolerated the procedure well. There were no apparent complications. Follow-up: The patient will update us on the response to this procedure, and agrees to continue currently prescribed/recommended therapies. Future Appointments Appointment Date:12/31/2023 01:00:00 PM Scheduled Provider:POLLY MARIANO PA-C Location:[facility] Appointment Type:URO Office Visit Appointment Date:01/01/2024 11:00:00 AM Scheduled Provider:Cady Alva PA-C Location:[facility] Appointment Type:Pain Management - Follow Up (FT) Future Scheduled Tests Laboratory* Pancreatic Elastase, Fecal 01/29/23 * Fecal WBC Lactoferrin 01/29/23 * Giardia lamblia, Direct Detection EIA 01/29/23 * O & P Exam, Routine 01/29/23 * Clostridium Difficile PCR 01/29/23 * Enteric Panel by PCR 01/29/23 * CBC w/ Auto Diff 12/25/22 * Comprehensive Metabolic Panel 12/25/22 Radiology* Echo Transthoracic Complete 05/20/23 [facility]03-20-2024 Evaluation + Plan noteExtracted from: Title:Pain Managment H&P new patient Author:Cady [...] Future Appointments Appointment Date:12/31/2023 01:00:00 PM Scheduled Provider:POLLY MARIANO PA-C Location:[facility] Appointment Type:URO Office Visit Future Scheduled Tests Laboratory* Pancreatic Elastase, Fecal 01/29/23 * Fecal WBC Lactoferrin 01/29/23 * Giardia lamblia, Direct Detection EIA 01/29/23 * O & P Exam, Routine 01/29/23 * Clostridium Difficile PCR 01/29/23 * Enteric Panel by PCR 01/29/23 * CBC w/ Auto Diff 12/25/22 * Comprehensive Metabolic Panel 12/25/22 Radiology* Echo Transthoracic Complete 05/20/23 [facility]03-15-2024 History of Present illness Narrative* Fiona Rockwell APRN-DELORES - 11/01/2023 12:30 PM EDT The OARRS/MAPPS database was reviewed today and found to be appropriate. No indication of medication diversion, or non compliance. Fiona Rockwell APRN-DELORES 11/01/23 1231 [facility] History of Present illness Narrative* Robert Giron, - 10/03/2023 3:40 PM EST Subjective Patient [...] last A1c was 6.5%. She saw her head turbine operator who medically cleared her. She had a [...] ear normal. Nose: Nose normal. Mouth/Throat: Lips: [place]. Mouth: Mucous membranes are moist. Pharynx: Oropharynx [...] Hallux valgus of right foot Follow-up with chief gauger for surgery. Essential hypertension Blood pressure at goal. Take medications with a sip of water in the morning. Diabetic peripheral neuropathy (CMS-HCC) At goal. documented in this [facility]Children[facility] Miscellaneous Notes* Telephone Encounter - Anjelica Rutledge - 09/27/2023 8:08 AM EST Patient left message requesting if she can get refill of Tramadol. Please advise. [phone] documented in this encounterSamaritan [id number] Telephone encounter Note* Telephone Encounter - Anjelica Rutledge - 09/27/2023 8:08 AM EST Patient left message requesting if she can get refill of Tramadol. Please advise. [phone] [facility] [id number] History of Present illness Narrative* Martin Aranog DPM - 09/26/2023 3:10 PM EST Patient: Keturah [...] Behavior, Mental Status Change, other, Vomiting hallucinate [place] Saline Nasal Gel [Aloe-Sodium Chloride] Facial numbness/tongue [...] History: Past Medical History: Diagnosis Date Asthma ([facility]) Bipolar disorder ([facility]) Bunion COPD (chronic obstructive pulmonary disease) ([facility]) Depression ([facility] Diabetes ([facility]) Difficulty walking Fallen arches Fibromyalgia Hammer toe Kidney stones Migraine ([facility]) Mitral valve prolapse Downey's neuroma Onychomycosis Osteoarthritis [...] time., Disp: , Rfl: Continuous Blood Gluc Middleware Architect (Dexcom G6 tool dresser) device, 1 UNIT YEARLY, Disp: , Rfl: Continuous Blood Gluc Sensor (Dexcom G6 Sensor) [facility], USE 1 UNIT DIRECTED AND CHANGE EVERY 10 DAYS, Disp: , Rfl: ergocalciferol (Vitamin D2) 1.25 MG (22191 UT) capsule, Take 1 capsule by mouth [...] within 12 hours or as directed by MD.., Disp: 60 patch, Rfl: 11 loperamide (Imodium) [...] oral route., Disp: , Rfl: nystatin (Mycostatin) 718350 UNIT/ML suspension, TAKE 5ML FOUR TIMES A [...] breath with positive history of tachycardia seeing head turbine operator for this Pulmonary: Positive history of shortness [...] polyneuropathy, with long-term current use of insulin ([facility]) 4. Contracture of right ankle 5. Bone [...] risks, alternatives, benefits, post op complications and snf expectations were discussed including but not limited to: infection,bone infection,wound dehiscence hardware failure and irritation,wound dehiscence,delay union/mal union/non union of bone. RSDS,neuroma,duty limitations,DVT/PE, MD,nerve damage, scar, loss of sensation, swelling. Pt [...] date and current (date) documented in this encounterSamaritan [id number] Hospital Discharge instructions Patient Education 09/17/2023 08:52:34 [...] Follow these instructions at home: Medicines Take ueon-wyp-cmzyrzv and prescription medicines only as told by [...] or the blood stops without treatment. Take iayz-kak-gdhwpzb and prescription medicines only as told by your health care provider. Drink enough fluid to keep your urine pale yellow. This information is not intended to replace advice given to you by your health care provider. Make sure you discuss any questions you have with your health care provider. Document Revised: 04/05/2021 Document Reviewed: 04/05/2021 [employer] Patient Education 2022 [employer]. Follow Up Care 06/13/2023 09:13:04 With:POLLY MARIANO PA-C, URL Address: [address] [place] [address] [phone] When: Unknown Comments:3 mos (restart med) [facility] 01-09-2024 Evaluation note* Encounter Date Diagnosis Assessment Notes Treatment Notes Treatment Clinical Notes Aug, Chronic obstructive pulmonary disease, unspecified (ICD-10 - J44.9) Aug, Tobacco abuse (ICD-1 0 - Z72.0) Stop smoking. Chest CT in 03/2023 showed emphysema, no nodules. Next LDCT screening will be scheduled for 2023. Aug, Diastolic dysfunctio n (ICD-10 - I51.9) Aug, Nicotine dependence, cigarettes, uncomplicated (ICD-10 - F17.210) QFPay Other 12-07-2023 NotePROCEDURE: CARDIAC EVENT MONITOR 14 [...] BY: Yandel Jett M.D. lr Dictated: 07/23/2023 [id number] Transcribed: 07/23/2023 cc:DELORES Pryor-Aden[facility] Medical CenterComment on above:Result Comment: Electronically Signed By: Yandel Jett MD\.br\Date and Time Signed: 07/25/23 08:27 [id number] Evaluation note* Encounter Date Diagnosis Assessment Notes [...] Nicotine dependence, cigarettes, uncomplicated (ICD-10 - F17.210) QFPay Other 06-05-2023 Note [id number]:127[facility] 01-17-2023 Hospital Discharge instructions Patient Education 01/17/2023 09:45:42 Colonoscopy, Care After Surgery Salam (CUSTOM) Colonoscopy Care After Surgery Please read the instructions outlined below and refer to this sheet in the next few weeks. These discharge instructions provide you with general information on caring for yourself [facility]. Your doctor may also give you specific [...] worse throughout the day. 01/17/2023 09:45:38 Hemorrhoids, Pdhz-qx-Qqzj Hemorrhoids Hemorrhoids are swollen veins that may [...] 3 times a day. General instructions Take ryqj-ydj-ybqksts and prescription medicines only as told by [...] provider. Document Revised: 02/14/2022 Document Reviewed: 02/14/2022 [employer] Patient Education 2022 [employer] 01/17/2023 09:45:31 Colon Polyps Colon Polyps Colon [...] hard liquor (44 mL). General instructions Take kdom-fsw-gqmptsb and prescription medicines only as told by [...] provider. Document Revised: 11/23/2020 Document Reviewed: 11/23/2020 [employer] Patient Education 2022 [employer]. Follow Up Care 09/14/2022 14:04:03 With:BELA WALSH, DHAVAL Poole, [facility] Address: [address] [place] [address] When: Unknown Comments:Office will call to schedule follow up appointment [facility]04-05-2023 Evaluation + Plan noteExtracted from: Title:Anesthesia Pre-Op Note - LILLY Author:Brody Raza DO Date:11/21/22 Plan [place] [employer] Anesthesiologists#(ASA) physical status classification: Class III. Anesthetic Preoperative Plan Anesthesia: General. . Anesthetic plan, risks, benefits, and alternatives discussed with the patient and/or family. Risks discussed: nausea, vomiting, headache, sore throat, aspiration, airway. Patient verbalized understanding. Informed consent was given. Consent was signed by the patient. Future Appointments Appointment Date:12/10/2022 02:40:00 PM Scheduled Provider:Inessa Grajeda CNP Location:[facility] Appointment Type:[facility] Follow Up Appointment Date:01/17/2023 09:50:00 AM Scheduled Provider: Location:[facility] Appointment Type:Surgery FT Appointment Date:01/30/2023 01:20:00 PM Scheduled Provider:POLLY MARIANO PA-C Location:[facility] Appointment Type:URO Office Visit Future Scheduled Tests Laboratory* Clostridium difficile by PCR 05/09/22 * CBC w/ Auto Diff 05/09/22 * Comprehensive Metabolic Panel 05/09/22 [facility]04-05-2023 Hospital Discharge instructions Patient Education 11/21/2022 11:26:16 Foot Cryocuff Patient Instructions - FT (CUSTOM) 11/21/2022 11:26:16 Post Op Patient Instructions - FT (CUSTOM) 11/21/2022 08:48:42 Conchita - Post Operative Instructions (Revised 07/29/19) (Custom) ([id number]) (Custom) [place], [place] Martin Arango, DPNnamdi, FACFAS POST OPERATIVE INSTRUCTIONS Keep bandage clean [...] feel free to call the doctor at: [phone] or [phone] Arango paged. Patient signatureDate Dr.Nicholas Arango, SALLIE, FACFAS Date Revised: 09-26 [facility]03-13-2023 Hospital Discharge instructions Patient Education 10/29/2022 [...] water added (diluted fruit juice). Eat bland, wnwu-vw-jqikto foods in small amounts as you are able. These foods include bananas, applesauce, rice, lean meats, toast, and crackers. Avoid drinking fluids that contain a lot of sugar or caffeine, such as energy drinks, sports drinks, and soda. Avoid alcohol. Avoid spicy or fatty foods. General instructions Take irmf-ngf-gyhyxhi and prescription medicines only as told by your health care provider. Rest at home while you recover. Drink enough fluid to keep your urine pale yellow. Breathe slowly and deeply when you feel nauseous. Avoid smelling things that have strong odors. Wash your hands often using soap and water. If soap and water are not available, use hand linen clerk. Make sure that all people in your [...] recommendations for eating and drinking and take argu-kjx-phtjwsd and prescription medicinesonly as told by your [...] 09/12/2005 Document Revised: 01/13/2019 Document Reviewed: 01/13/2019 [employer] Patient Education 2020 [employer] Follow Up Care 10/02/2022 13:26:11 With:Inessa Grajeda CNP Address: When:1 to 2 weeks Comments:Following colonoscopy. [facility] 03-04-2023 Hospital Discharge [...] Treatment for this condition includes: Antibiotic medicine. Lhun-ztn-ofjtlni medicines to treat discomfort. Drinking enough water [...] Follow these instructions at home: Medicines Take xwso-dvj-olvxjxt and prescription medicines only as told by [...] 05/15/2006 Document Revised: 07/23/2019 Document Reviewed: 02/12/2019 [employer] Patient Education 2020 [employer]. 10/20/2022 12:23:03 Antibiotic Medicine, Adult Antibiotic Medicine, [...] 04/17/2005 Document Revised: 02/03/2019 Document Reviewed: 08/06/2017 [employer] Patient Education 2020 [employer]. Follow Up Care 10/20/2022 10:33:51 With:ROBERT GIRON Address: [place] [address] Business (1) When:10/23/2022 12:22:53 Comments:Call [...] you develop any new or worsening symptoms. [facility]03-04-2023 Evaluation + Plan noteExtracted from: Title:ED Note Author:Santos Landry DO Date: Acute UTI (N39.0: Urinary tr act infection, site not specified) Orders: azithromycin, = 1 packet(s), Oral, As Directed, as directed on package labeling, X 5 day(s), # 6 tab(s), Refills(s) 0, Pharmacy: [id number], 163, cm, 10/20/22 10:48:00 EST, Height/Length Dosing, 78.9, kg, 10/20/22 10:48:00 EST, Weight Dosing Automated Diff Basic Metabolic Panel CBC w/ Auto Diff CT Abdomen/Pelvis w/o Contrast eGFR Extra Blue Tube UA With Cult Reflex Urine Culture Addendum by Santos Landry DO. on October 20, 2022 12:35:16 EST She requested pain medicine before discharge. Allergies again reviewed. Can only take Tylenol and narcotics. Narcotics not indicated. Tylenol given. Future Appointments Appointment Date:10/23/2022 09:00:00 AM Scheduled Provider: [facility] Type:US Abdominal/Pelvis (FT) Appointment Date:10/29/2022 02:40:00 PM Scheduled Provider:Inessa Grajeda CNP Location:[facility] Appointment Type:BADH Follow Up Appointment Date:10/30/2022 03:00:00 PM Scheduled Provider:Elliott Solis MD [facility] Type:Cardiology Follow Up (FT) Appointment Date:11/07/2022 02:40:00 PM Scheduled Provider: Location:[facility] Appointment Type:Surgery FT Appointment Date:01/30/2023 01:20:00 PM Scheduled Provider:POLLY MARIANO PA-C Location:[facility] Appointment Type:URO Office Visit Diagnostic Tests Pending * Urine Culture 10/20/22 Future Scheduled Tests Laboratory* Clostridium difficile by PCR 05/09/22 * CBC w/ Auto Diff 05/09/22 * Comprehensive Metabolic Panel 05/09/22 Radiology* US Abdomen Complete 10/23/22 [facility]02-24-2023 Hospital Discharge instructions Patient Education 10/12/2022 14:38:59 [...] take to decrease my back pain? Take zudj-vrw-hkbxzcu or prescription medicines only as told by [...] and in- person support groups through: The [place] [employer] Association: https://theacpa.org/Support-Groups The [place]. Pain [...] 08/19/2016 Document Revised: 07/18/2018 Document Reviewed: 04/13/2017 [employer] Patient Education [employer] Follow Up Care 10/12/2022 12:55:29 With:ROBERT GIRON Address: [address] [place] [id number] Business (1) When:10/15/2022 14:38:47 Comments:Call the office [...] you develop any new or worsening symptoms. [facility]02-24-2023 Evaluation + Plan noteExtracted from: Title:ED Note [...] Date:10/29/2022 02:40:00 PM Scheduled Provider:Inessa Grajeda CNP Location:[facility] Appointment Type:BADH Follow Up Appointment Date:10/30/2022 03:00:00 PM Scheduled Provider:Elliott Solis MD [facility] Type:Cardiology Follow Up (FT) Appointment Date:11/07/2022 02:40:00 PM Scheduled Provider: Location:[facility] Appointment Type:Surgery FT Appointment Date:01/30/2023 01:20:00 PM Scheduled Provider:POLLY MARIANO PA-C Location:[facility] Appointment Type:URO Office Visit Future Scheduled Tests Laboratory* Fecal WBC Lactoferrin 05/09/22 * Giardia lamblia, Direct Detection EIA 05/09/22 * O & P Exam, Routine 05/09/22 * Clostridium difficile by PCR 05/09/22 * Enteric Panel by PCR 05/09/22 * CBC w/ Auto Diff 05/09/22 * Comprehensive Metabolic Panel 05/09/22 Radiology* US Abdomen Complete 10/23/22 [facility]02-14-2023 Hospital Discharge instructions Patient Education 10/02/2022 13:01:04 [...] water added (diluted fruit juice). Eat bland, icas-db-bcpvxj foods in small amounts as you are able. These foods include bananas, applesauce, rice, lean meats, toast, and crackers. Avoid fluids that contain a lot of sugar or caffeine, such as energy drinks, sports drinks, and soda. Avoid alcohol. Avoid spicy or fatty foods. General instructions Take jkuf-ryh-iotmfat and prescription medicines only as told by your health care provider. Drink enough fluid to keep your urine pale yellow. Wash your hands often using soap and water. If soap and water are not available, use hand linen clerk. Make sure that all people in your [...] eating and drinking to prevent dehydration. Take hnnh-msq-ekxzozv and prescription medicines only as told by [...] 08/05/2006 Document Revised: 11/27/2019 Document Reviewed: 01/13/2019 [employer] Patient Education 2020 [employer]. Follow Up Care 09/21/2022 11:43:03 With:Inessa Grajeda CNP Address: When:1 month [facility] 01-19-2023 Evaluation + Plan noteExtracted from: Title:ANES Post-operative Note Author:Johny Oseguera MD Date:09/06/22 Plan Transfer/Discharge: Transfer/Discharge Discharge when meets criteria ( To home ). Extracted from: Title:ANES Pre-operative Note Author:Lillie Oseguera MD S. Date:09/06/22 Plan [place] [employer] of Anesthesiologists (ASA) physical status classification: Class III. Anesthetic Preoperative Plan: Anesthesia General, and Monitored anethesia care. Future Appointments Appointment Date:10/30/2022 03:00:00 PM Scheduled Provider:Elliott Solis MD [facility] Type:Cardiology Follow Up (FT) Appointment Date:01/30/2023 01:20:00 PM Scheduled Provider:POLLY MARIANO PA-C Location:[facility] Appointment Type:URO Office Visit Future Scheduled Tests Laboratory* Fecal WBC Lactoferrin 05/09/22 * Giardia lamblia, Direct Detection EIA 05/09/22 * O & P Exam, Routine 05/09/22 * Clostridium difficile by PCR 05/09/22 * Enteric Panel by PCR 05/09/22 * CBC w/ Auto Diff 05/09/22 * Comprehensive Metabolic Panel 05/09/22 [facility]01-19-2023 Hospital Discharge instructions Patient Education 09/06/2022 09:52:38 [...] what activities are safe for you. Take rerk-otq-abzykfy and prescription medicines only as told by [...] 02/03/2013 Document Revised: 01/27/2019 Document Reviewed: 01/05/2019 [employer] Patient Education 2019 [employer]. Follow Up Care 06/26/2022 12:25:13 With:Zulema CRAMER Address: [address] [place] [address] Business (1) When: Unknown Comments:Office to call for follow-up appointment [facility]11-17-2022 Evaluation note* Encounter Date Diagnosis Assessment Notes Treatment Notes Treatment Clinical Notes Jun, Chronic obstructive pulmonary disease, unspecified (ICD-10 - J44.9) Jun, Tobacco abuse (ICD-10 - Z72.0) Cut back on smoking to goal of stopping, Jun, Diastolic dysfunction (ICD-10 - I51.9) QFPay Other 04-25-2022 Hospital Discharge instructions Patient Education [...] fried and sweet foods. General instructions Take wehn-tdn-fybscdn and prescription medicines only as told by [...] 06/01/2010 Document Revised: 11/26/2019 Document Reviewed: 08/21/2018 [employer] Patient Education 2020 [employer] Follow Up Care 09/04/2021 10:41:00 With:LILI WALSH, Donaldo Moreira, URL Address: [facility] [address] [place] [address] [phone] When:04/12/2022 [facility] 11-09-2021 NoteHNO ID: [id number] Author: Ye Rodriguez PA-C Service: ? Author Type: Physician Quality Systems Manager Type: Progress Notes Filed: 06/27/2021 4:56 PM Note Text: Comprehensive [facility] [place] [facility] NOTE CC: Keturah Herrera is a [...] Derived Hives - Atomoxetine (more content not included)...[facility]09-01-2021 NoteHNO ID: [id number] Author: RT James(R) Service: ? Author Type: Pediatric Cardiologist Type: Progress Notes Filed: 04/19/2021 1:56 PM [...] BY: RT James(R) April 19, 2021 1:55 [facility]09-01-2021 NoteHNO ID: [id number] Author: Randi Farrell, DO Service: ? Author [...] She will follow-up in a month if necessaryOhio[facility]09-01-2021 NoteHNO ID: [id number] Author: RT James(Lillie) Service: ? Author Type: Pediatric Cardiologist Type: Progress Notes Filed: 04/19/2021 1:09 PM [...] IV DATA: Not applicable SIGNED BY: RT James(Lillie) April 19, 2021 1:09 [facility] Future Appointments Appointment Date:12/11/2021 11:45:00 AM Scheduled Provider:Donaldo PEARSON MD Location:[facility] Appointment Type:URO Office Visit Appointment Date:01/11/2022 02:15:00 PM Scheduled Provider:Zulema CRAMER MD Location:[facility] App[facility]ment Type:[facility] Future Appointments Appointment Date:01/11/2022 02:15:00 PM Scheduled Provider:Zulema CRAMER MD Location:[facility] Appointment Type:[facility] Follow Up Appointment Date:04/09/2022 01:45:00 PM Scheduled Provider:Donaldo PEARSON MD Location:[facility] Appointment Type:URO Office Visit [facility] evaluation + Plan note Future Appointments Appointment Date:02/01/2022 08:15:00 AM Scheduled Provider: Location:[facility] Appointment Type:Surgery PAT COVID Testing Appointment Date:02/01/2022 09:00:00 AM Scheduled Provider: Location:[facility] Appointment Type:Surgery FT Appointment Date:02/08/2022 09:40:00 AM Scheduled Provider: Location:[facility] Appointment Type:Surgery FT Appointment Date:04/09/2022 01:45:00 PM Scheduled Provider:Donaldo EPARSON MD Location:[facility] Appointment Type:URO Office Visit [facility] Evaluation + Plan note Future Appointments Appointment Date:02/01/2022 08:15:00 AM Scheduled Provider: Location:[facility] Appointment Type:Surgery PAT COVID Testing Appointment Date:02/01/2022 09:00:00 AM Scheduled Provider: Location:[facility] Appointment Type:Surgery FT Appointment Date:02/08/2022 09:40:00 AM Scheduled Provider: Location:[facility] Appointment Type:Surgery FT Appointment Date:03/06/2022 10:30:00 AM Scheduled Provider:Cady CALIX CNP Location[facility] Appointment Type:Cardiology Follow Up (FT) Appointment Date:04/09/2022 01:45:00 PM Scheduled Provider:Donaldo PEARSON MD Location:[facility] Appointment Type:URO [facility] Future Appointments Appointment Date:02/08/2022 09:30:00 AM Scheduled Provider: Location:[facility] Appointment Type:Surgery FT Appointment Date:03/06/2022 10:30:00 AM Scheduled Provider:Cady CALIX CNP Location:[facility] Appointment Type:Cardiology Follow Up (FT) Appointment Date:04/09/2022 01:45:00 PM Scheduled Provider:Donaldo [facility]ARSON MD [facility] Future Appointments Appointment Date:03/06/2022 10:30:00 AM Scheduled Provider:Cady CALIX CNP [facility] Type:Cardiology Follow Up (FT) Appointment Date:03/22/2022 08:15:00 AM Scheduled Provider: Location:[facility] Appointment Type:Surgery PAT COVID Testing Appointment Date:03/29/2022 08:40:00 AM Scheduled Provider: Location:[facility] Appointment Type:Surgery FT Appointment Date:04/09/2022 01:45:00 PM Scheduled Provider:Donaldo PEARSON MD [facility] Future Appointments Appointment Date:03/20/2022 01:00:00 PM Scheduled Provider: [facility] Type:Cardiology Nurse Visit (FT) Appointment Date:03/22/2022 08:15:00 AM Scheduled Provider: Location:[facility] Appointment Type:Surgery PAT COVID Testing Appointment Date:03/29/2022 08:40:00 AM Scheduled Provider: Location:[facility] Appointment Type:Surgery FT Appointment Date:04/09/2022 01:45:00 PM Scheduled Provider:Donaldo PEARSON MD [facility] Appointment Type:URO Office Visit Appointment Date:09/06/2022 01:15:00 PM Scheduled Provider:Elliott Solis MD [facility]:Cardiology Follow Up (FT) [facility] Future Appointments Appointment Date:03/22/2022 08:15:00 AM Scheduled Provider: Location:[facility] Appointment Type:Surgery PAT COVID Testing Appointment Date:03/29/2022 08:40:00 AM Scheduled Provider: Location:[facility] Appointment Type:Surgery FT Appointment Date:04/09/2022 01:45:00 PM Scheduled Provider:Donaldo PEARSON MD [facility] Appointment Type:URO Office Visit Appointment Date:09/06/2022 01:15:00 PM Scheduled Provider:Elliott Solis MD Location:[facility] Appointment Type:Cardiology Follow Up (FT) [facility] Future Appointments Appointment Date:03/29/2022 08:40:00 AM Scheduled Provider: Location:[facility] Appointment Type:Surgery FT Appointment Date:04/09/2022 01:45:00 PM Scheduled Provider:Donaldo PEARSON MD Location:[facility] Appointment Type:URO Office Visit Appointment Date:09/06/2022 01:15:00 PM Scheduled Provider:Elliott Solis MD [facility]:Cardiology Follow Up (FT) [facility] Future Appointments Appointment Date:05/09/2022 01:40:00 PM Scheduled Provider:Inessa Grajeda CNP Location:[facility] Appointment Type:BADH Follow Up Appointment Date:05/15/2022 01:30:00 PM Scheduled Provider:Cady CALIX CNP [facility] Type:Cardiology ED Follow Up (FT) Appointment Date:05/16/2022 01:20:00 PM Scheduled Provider:POLLY MARIANO PA-C Location:[facility] Appointment Type:URO Office Visit Appointment Date:09/06/2022 01:15:00 PM Scheduled Provider:Elliott Solis MD [facility] [facility] Type:Cardiology Follow Up (FT) [facility] + Plan note Future Appointments Appointment Date:06/11/2022 11:00:00 AM Scheduled Provider: Location:[facility] Appointment Type:Surgery PAT COVID Testing Appointment Date:06/18/2022 09:45:00 AM Scheduled Provider: Location:[facility] Appointment Type:Surgery FT Appointment Date:09/06/2022 01:15:00 PM Scheduled Provider:Elliott Solis MD Location[facility] Appointment Type:Cardiology Follow Up (FT) Appointment Date:10/30/2022 03:00:00 PM Scheduled Provider:Elliott Solis MD Location[facility] Appointment Type:Cardiology Follow Up (FT) Future Scheduled Tests Laboratory* Fecal WBC Lactoferrin 05/09/22 * Giardia lamblia, Direct Detection EIA 05/09/22 * O & P Exam, Routine 9/21/22 * Clostridium difficile by PCR 05/09/22 * Enteric Panel by PCR 05/09/22 * CBC w/ Auto Diff 05/09/22 * [facility] Appointment Date:09/06/2022 01:15:00 PM Scheduled Provider:Elliott Solis MD [facility] Type:Cardiology Follow Up (FT) Appointment Date:10/30/2022 03:00:00 PM Scheduled Provider:Elliott Solis MD [facility] Type:Cardiology Follow Up (FT) Appointment Date:01/30/2023 01:20:00 PM Scheduled Provider:POLLY MARIANO PA-C Location:[facility] Appointment Type:URO Office Visit Future Scheduled Tests Laboratory* Fecal WBC Lactoferrin 05/09/22 * Giardia lamblia, Direct Detection EIA 05/09/22 * O & P Exam, Routine 05/09/22 * Clostridium difficile by PCR 05/09/22 * Enteric Panel by PCR 05/09/22 * CBC w/ Auto Diff 05/09/22 * Comprehensive Metabolic Panel 05/09/22 [facility] Future App[facility]ments Appointment Date:10/30/2022 03:00:00 PM Scheduled Provider:Elliott Solis MD [facility] Type:Cardiology Follow Up (FT) Appointment Date:01/30/2023 01:20:00 PM Scheduled Provider:POLLY MARIANO PA-C Location:[facility] Appointment Type:URO Office Visit Future Scheduled Tests Laboratory* Fecal WBC Lactoferrin 05/09/22 * Giardia lamblia, Direct Detection EIA 05/09/22 * O & P Exam, Routine 05/09/22 * Clostridium difficile by PCR 05/09/22 * Enteric Panel by PCR 05/09/22 * CBC w/ Auto Diff 05/09/22 * Comprehensive Metabolic Panel 05/09/22 [facility] Future Appointments Appointment Date:10/23/2022 09:00:00 AM Scheduled Provider: [facility] Type:US Abdominal/Pelvis (FT) Appointment Date:10/29/2022 02:40:00 PM Scheduled Provider:Inessa Grajeda CNP Location:[facility] Appointment Type:BAD Follow Up Appointment Date:10/30/2022 03:00:00 PM Scheduled Provider:Elliott Solis MD [facility] Type:Cardiology Follow Up (FT) Appointment Date:10/31/2022 03:15:00 PM Scheduled Provider: Location:[facility] Appointment Type:Surgery PAT COVID Testing Appointment Date:11/07/2022 02:40:00 PM Scheduled Provider: Location:[facility] Appointment Type:Surgery FT Appointment Date:01/30/2023 01:20:00 PM Scheduled Provider:POLLY MARIANO PA-C Location:[facility] Appointment Type:URO Office Visit Future Scheduled Tests Laboratory* Fecal WBC Lactoferrin 05/09/22 * Giardia lamblia, Direct Detection EIA 05/09/22 * O & P Exam, Routine 05/09/22 * Clostridium difficile by PCR 05/09/22 * Enteric Panel by PCR 05/09/22 * CBC w/ Auto Diff 05/09/22 * Comprehensive Metabolic Panel 05/09/22 Radiology* US Abdomen Complete 10/23/22 [facility] Evaluation + Plan note Future Appointments Appointment Date:10/30/2022 08:00:00 AM Scheduled Provider: [facility] Appoint[facility] Type:US Abdominal/Pelvis (FT) Appointment Date:10/30/2022 03:00:00 PM Scheduled Provider:Elliott Solis MD [facility] Type:Cardiology Follow Up (FT) Appointment Date:11/07/2022 02:40:00 PM Scheduled Provider: Location:[facility] Appointment Type:Surgery FT Appointment Date:12/10/2022 02:40:00 PM Scheduled Provider:Inessa Grajeda CNP Location:[facility] Appointment Type:BAD Follow Up Appointment Date:01/30/2023 01:20:00 PM Scheduled Provider:POLLY MARIANO PA-C Location:[facility] Appointment Type:URO Office Visit Future Scheduled Tests Laboratory* Clostridium difficile by PCR 05/09/22 * CBC w/ Auto Diff 05/09/22 * Comprehensive Metabolic Panel 05/09/22 Radiology* US Abdomen Complete 10/30/22 [facility] Evaluation + Plan note Future Appointments Appointment Date:11/07/2022 02:40:00 PM Scheduled Provider: Location:[facility] Appointment Type:Surgery FT Appointment Date:11/09/2022 10:00:00 AM Scheduled Provider: Location:.[facility] Appointment Type:US Abdominal/Pelvis (FT) Appointment Date:12/10/2022 02:40:00 PM Scheduled Provider:Inessa Grajeda CNP Location:[facility] Appointment Type:[facility] Follow Up Appointment Date:01/30/2023 01:20:00 PM Scheduled Provider:POLLY MARIANO PA-C Location:[facility] Appointment Type:URO Office Visit Future Scheduled Tests Laboratory* Clostridium difficile by PCR 05/09/22 * CBC w/ Auto Diff 05/09/22 * Comprehensive Metabolic Panel 05/09/22 Radiology* US Abdomen Complete [facility]/09/22 [facility] Future Appointments Appointment Date:12/10/2022 02:40:00 PM Scheduled Provider:Inessa Grajeda CNP Location:[facility] Appointment Type:[facility] Follow Up Appointment Date:01/17/2023 09:50:00 AM Scheduled Provider: Location:[facility] Appointment Type:Surgery FT Appointment Date:01/30/2023 01:20:00 PM Scheduled Provider:POLLY MARIANO PA-C Location:[facility] Appointment Type:URO Office Visit Future Scheduled Tests Laboratory* Clostridium difficile by PCR 05/09/22 * CBC w/ Auto Diff 05/09/22 * Comprehensive Metabolic Panel 05/09/22 [facility] Future Appointments Appointment Date:01/30/2023 01:20:00 PM Scheduled Provider:POLLY MARIANO PA-C Location:[facility] Appointment Type:URO Office Visit Appointment Date:02/06/2023 02:00:00 PM Scheduled Provider:Inessa Grajeda CNP Location:[facility] Appointment Type:[facility] Follow Up Future Scheduled Tests Laboratory* Clostridium difficile by PCR 05/09/22 * CBC w/ Auto Diff 05/09/22 * CBC w/ Auto Diff 12/25/22 * Comprehensive Metabolic Panel 05/09/22 * Comprehensive Metabolic Panel 12/25/22 [facility] Future Appointments Appointment Date:06/14/2023 11:00:00 AM Scheduled Provider: [facility] Type:CV Holter/Event (FT) Appointment Date:07/25/2023 11:45:00 AM Scheduled Provider:Elliott SOLIS MD [facility] Type:Cardiology Follow Up (FT) Future Scheduled Tests Laboratory* Pancreatic Elastase, Fecal 01/29/23 * Fecal WBC Lactoferrin 01/29/23 * Giardia lamblia, Direct Detection EIA 01/29/23 * O & P Exam, Routine 01/29/23 * Clostridium Difficile PCR 01/29/23 * Enteric Panel by PCR 01/29/23 * CBC w/ Auto Diff 12/25/22 * Comprehensive Metabolic Panel 12/25/22 Radiology* Echo Transthoracic Complete 05/20/23 [facility] Future Appointments Appointment Date:07/25/2023 11:45:00 AM Scheduled Provider:Elliott SOLIS MD [facility] Type:Cardiology Follow Up (FT) Appointment Date:07/30/2023 02:00:00 PM Scheduled Provider:POLLY MARIANO PA-C Location:[facility] Appointment Type:URO Office Visit Future Scheduled Tests Laboratory* Pancreatic Elastase, Fecal 01/29/23 * Fecal WBC Lactoferrin 01/29/23 * Giardia lamblia, Direct Detection EIA 01/29/23 * O & P Exam, Routine 01/29/23 * Clostridium Difficile PCR 01/29/23 * Enteric Panel by PCR 01/29/23 * CBC w/ Auto Diff 12/25/22 * Comprehensive Metabolic Panel 12/25/22 Radiology* Echo Transthoracic Complete 05/20/23 [facility] Future Appointments Appointment Date:07/30/2023 02:00:00 PM Scheduled Provider:POLLY MARIAON PA-C Location:[facility] Appointment Type:URO Office Visit Future Scheduled Tests Laboratory* Pancreatic Elastase, Fecal 01/29/23 * Fecal WBC Lactoferrin 01/29/23 * Giardia lamblia, Direct Detection EIA 01/29/23 * O & P Exam, Routine 01/29/23 * Clostridium Difficile PCR 01/29/23 * Enteric Panel by PCR 01/29/23 * CBC w/ Auto Diff 12/25/22 * Comprehensive Metabolic Panel 12/25/22 Radiology* Echo Transthoracic Complete 05/20/23 [facility] Future Appointments Appointment Date:12/31/2023 01:00:00 PM Scheduled Provider:POLLY MARIANO PA-C Location:[facility] Appointment Type:URO Office Visit Future Scheduled Tests Laboratory* Pancreatic Elastase, Fecal 01/29/23 * Fecal WBC Lactoferrin 01/29/23 * Giardia lamblia, Direct Detection EIA 01/29/23 * O & P Exam, Routine 01/29/23 * Clostridium Difficile PCR 01/29/23 * Enteric Panel by PCR 01/29/23 * CBC w/ Auto Diff 12/25/22 * Comprehensive Metabolic Panel 12/25/22 Radiology* Echo Transthoracic Complete 05/20/23 [facility] evaluation + Plan note Future Appointments Appointment Date:01/01/2024 11:00:00 AM Scheduled Provider:Cady Alva PA-C Location:[facility] Appointment Type:Pain Management - Follow Up (FT) Appointment Date:01/30/2024 02:15:00 PM Scheduled Provider:En Carmen PA-C [facility] Type:Cardiology Follow Up (FT) Appointment Date:01/05/2025 01:00:00 PM Scheduled Provider:POLLY MARIANO PA-C Location:[facility] Appointment Type:URO Office Visit Future Scheduled Tests Laboratory* Pancreatic Elastase, Fecal 01/29/23 * Fecal WBC Lactoferrin 01/29/23 * Giardia lamblia, Direct Detection EIA 01/29/23 * O & P Exam, Routine 01/29/23 * Clostridium Difficile PCR 01/29/23 * Enteric Panel by PCR 01/29/23 Radiology* Echo Transthoracic Complete 05/20/23 [facility] evaluation noteNo assessment information available [facility] Work Phone: Evaluation noteNo InformationNoS[facility]! Other Evaluation note* Diagnosis Oral thrush Candidiasis of mouth documented in this encounter [facility] System[facility]* Diagnosis Chronic bilateral low back pain with sciatica, sciatica laterality unspecified documented in this encounter [facility]* Diagnosis Anxiety state Anxiety state, unspecified documented in this encounter [facility]* Diagnosis Chronic bilateral low back pain with bilateral sciatica Diabetic peripheral neuropathy (CMS/HCC) Type II or unspecified type diabetes mellitus with neurological manifestations, not stated as uncontrolled Lumbar radiculopathy Thoracic or lumbosacral neuritis or radiculitis, unspecified documented in this encounter [facility] HealthcareEvaluation note* Diagnosis Hav (hallux abducto valgus), right- Primary Plantar fasciitis Plantar fascial fibromatosis Diabetes 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 polyneuropathy, with long-term current use of insulin (CMS/HCC) Contracture of right ankle Bone spur of right foot documented in this encounter [facility] HealthcareEvaluation note* Diagnosis Chronic bilateral low back pain with bilateral sciatica Diabetic peripheral neuropathy (CMS/HCC) Type II or unspecified type diabetes mellitus with neurological manifestations, not stated as uncontrolled Lumbar radiculopathy Thoracic or lumbosacral neuritis or radiculitis, unspecified documented in this encounter [facility] HealthcareEvaluation note* Diagnosis Pre-op evaluation- Primary Hallux valgus of right foot Essential hypertension Unspecified essential hypertension Diabetic peripheral neuropathy (CMS-HCC) Type II or unspecified type diabetes mellitus with neurological manifestations, not stated as uncontrolled documented in this encounter [facility] System[facility] note* Diagnosis Anxiety state Anxiety state, unspecified Type 2 diabetes mellitus without complication, without long-term current use of insulin (CMS-HCC) Type 2 diabetes mellitus with diabetic mononeuropathy, without long-term current use of insulin (CMS-HCC) documented in this encounter [facility] SystemHistory general Narrative - Reported* Type [...] vom iting Hospitalization History see above [facility] Other History general Narrative - Reported* Type [...] vom iting Hospitalization History see above [facility] Other Hospital course Narrative No data available for this section [facility] No data available for this section [facility] HospitalInstructionsNot on filedocumented in this encounter [facility] [...] note No data available for this section [facility] Summary Purpose Family History No Family History [...] section and content) DATE CREATED AUTHOR 10/09/2021 [facility] DATE CREATED AUTHOR AUTHOR'S ORGANIZ ATION 02/22/2022 [facility] DATE CREATED AUTHOR AUTHOR'S ORGANIZ ATION 01/28/2023 [facility] DATE CREATED AUTHOR AUTHOR'S ORGANIZ ATION 04/11/2023 [facility] DATE CREATED AUTHOR AUTHOR'S ORGANIZ ATION 06/26/2023 [facility] DATE CREATED AUTHOR AUTHOR'S ORGANIZ ATION 09/22/2023 [facility] DATE CREATED AUTHOR AUTHOR'S ORGANIZ ATION 12/20/2023 [facility] DATE CREATED AUTHOR AUTHOR'S ORGANIZ ATION 12/28/2023 [facility] DATE CREATED AUTHOR AUTHOR'S ORGANIZ ATION 01/08/2024 [facility] Care Team (unrecognized sect ion and content) Team Status: Active Member Role Status Dates Robert Giron DO Primary Care Provider Active Team Status: Inactive Member Role Status Dates Robert Giron DO Primary Care Provider Active Valarie Herrera APRN [facility]- Attending Provider Active Unit Assistant Relationship Specialty Start Date End Date Robert Giron DO [address], [place] [address] PCP - General Family Medicine 05/10/22 Unit Assistant Relationship Specialty Start Date End Date Robert Giron DO [address] [place] [address] PCP - General Family Medicine 05/10/22 Unit Assistant Relationship Specialty Start Date End Date Robert Giron DO [address] [place] [address] PCP - General Family Medicine 05/10/22 Unit Assistant Relationship Specialty Start Date End Date Robert Giron DO [address] [place] [address] PCP - General Family Medicine 05/10/22 Unit Assistant Relationship Specialty Start Date End Date Robert Giron MD [address] [place] [address] PCP - General Family Medicine 07/24/23 Unit Assistant Relationship Specialty Start Date End Date Robert Giron DO [address] [place] [address] PCP - General Family Medicine 05/10/22 Unit Assistant Relationship Specialty Start Date End Date Robert Giron DO [address] [place] [address] PCP - General Family Medicine 05/10/22 Unit Assistant Relationship Specialty Start Date End Date Robert Giron DO [address] [place] [address] PCP - General Family Medicine 05/10/22 Unit Assistant Relationship Specialty Start Date End Date Robert Giron DO [address] [place] [address] PCP - General Family Medicine 05/10/22 Unit Assistant Relationship Specialty Start Date End Date Robert Giron DO [address] [place] [address] PCP - General Family Medicine 05/10/22 Goals [...] BE BASED ON THE PRIMARY CLINICAL RECORDS. [facility]. provides no warranty or guarantee of the accuracy or completeness of information in this document.
[2024-01-10 22:40] VITALS: BP 127/82; PULSE 79; TEMP 37; O2SAT 96; BMI 28.5
--- NOTE | 2024-01-10 22:56 | ED_ITS ---
HPI HPI - Back Pain/Injury General Chief Complaint: Back Pain/Injury Stated Complaint: severe back pain Time Seen by Provider: 01/10/24 22:52 Source: patient Mode of arrival: Wheelchair Limitations: no limitations History of Present Illness HPI Narrative: patient has chronic back pain. States she was seeing Dr Eid in [place] but is now changing doctors because she lives in [facility] and wants someone closer. Does not remember how long it has been since she took pain meds. Complains of increased pain tonight. No radicular symptoms. No bowel or bladder issues Related Data Home Medications ?Medication ?Instructions ?Recorded ?Confirmed alendronate 70 mg tablet 70 mg PO QWEEK 11/05/23 12/01/23 alprazolam 1 mg tablet 1 mg PO TID PRN anxiety 11/05/23 12/01/23 aripiprazole 15 mg tablet 15 mg PO DAILY 11/05/23 12/01/23 atorvastatin 80 mg tablet 80 mg PO DAILY 11/05/23 12/01/23 calcium carbonate 600 mg PO BID 11/05/23 12/01/23 carvedilol 25 mg tablet 25 mg PO BID 11/05/23 12/01/23 cetirizine 10 mg tablet 10 mg PO DAILY 11/05/23 12/01/23 cyclobenzaprine 10 mg tablet 10 mg PO Q8H PRN spasms 11/05/23 12/01/23 Allergies Allergy/AdvReac Type Severity Reaction Status Date / Time adhesive tape Allergy Verified 12/01/23 20:32 amitriptyline Allergy Verified 12/01/23 20:32 amoxicillin Allergy Verified 12/01/23 20:32 atomoxetine [From Strattera] Allergy Verified 12/01/23 20:32 bupropion [From Wellbutrin] Allergy Verified 12/01/23 20:32 codeine Allergy Verified 12/01/23 20:32 dexamethasone Allergy Verified 12/01/23 20:32 divalproex sodium Allergy Verified 12/01/23 20:32 [From Depakote] duloxetine [From Cymbalta] Allergy Verified 12/01/23 20:32 fluticasone Allergy Verified 12/01/23 20:32 [From Advair Diskus] gabapentin Allergy Verified 12/01/23 20:32 ibuprofen Allergy Verified 12/01/23 20:32 ketorolac [From Toradol] Allergy Verified 12/01/23 20:32 meloxicam [From Mobic] Allergy Verified 12/01/23 20:32 methadone Allergy Verified 12/01/23 20:32 milnacipran [From Savella] Allergy Verified 12/01/23 20:32 nitrofurantoin Allergy Verified 12/01/23 20:32 [From Macrobid] paroxetine [From Paxil] Allergy Verified 12/01/23 20:32 Penicillins Allergy Verified 12/01/23 20:32 pregabalin [From Lyrica] Allergy Verified 12/01/23 20:32 ropinirole [From Requip] Allergy Verified 12/01/23 20:32 salmeterol Allergy Verified 12/01/23 20:32 [From Advair Diskus] topiramate [From Topamax] Allergy Verified 12/01/23 20:32 ziprasidone Allergy Verified 12/01/23 20:32 fish Allergy Uncoded 07/09/23 19:38 Opioid HPI Opioid Management Most Recent Opioid Data: Last Pain Scale 6 01/10/24 22:46 Ur Phencyclidine Scrn Negative (NEGATIVE) 09/20/23 08:52 Review of Systems ROS Status of ROS 10 or more systems reviewed and unremark able except as noted in history and below PFSH PFS Social History Smoking status: Never smoker Exam Constitutional Vital Signs, click to edit/add: Last Vital Signs Temp 98.6 F 01/10/24 22:40 Pulse 72 01/10/24 23:44 Resp 16 01/10/24 23:44 BP 99/70 01/10/24 23:44 Pulse Ox 89 L 01/10/24 23:45 O2 Del Method Room Air, Nasal Cannula 01/10/24 23:45 O2 Flow Rate 2 01/10/24 23:45 Common normals: no apparent distress, average body habitus, oriented x3, no limitations, healthy appearing, alert and well nourished [facility] Common normals: normocephalic and head/scalp atraumatic Eye Common normals: EOMs intact bilaterally and conjunctivae normal Respiratory Common normals: normal respiratory effort, no retractions and no use of accessory muscles Cardio Common normals: regular rate, regular rhythm, S1 normal heart sound and S2 normal heart sound Back & Pelvis Other: tenderness L-spine. nonspecific Extremity Common normals: normal to inspection and full ROM Neuro Common normals: oriented x3 and moves all extremities Psych Appearance: grossly normal Course Vital Signs Vital signs: Vital Signs Temperature 98.6 F 01/10/24 22:40 Pulse Rate 79 01/10/24 22:40 Respiratory Rate 18 01/10/24 22:40 Blood Pressure 127/82 01/10/24 22:40 Pulse Oximetry 96 01/10/24 22:40 Oxygen Delivery Method Room Air 01/10/24 22:40 Temperature 98.6 F 01/10/24 22:40 Pulse Rate 72 01/10/24 23:44 Respiratory Rate 16 01/10/24 23:44 Blood Pressure 99/70 01/10/24 23:44 Pulse Oximetry 89 L 01/10/24 23:45 Oxygen Delivery Method Room Air, Nasal Cannula 01/10/24 23:45 Oxygen Delivery Flow Rate 2 01/10/24 23:45 MDM - Back Pain/Injury MDM Narrative Medical decision making narrative: patient presents with acute on chronic lower back pain. neg neuro deficits. no fever and mild elevated inflammatory markers. Patient medicated in the department. Magnesium discontinued as she felt like there was some swelling of her mouth. Exam without swelling. Pain improved some after solumedrol, norflex and mag and she was advised to follow up with her new physician to treat her chronic pain Lab Data Labs: Lab Results 01/10/24 Range/Units 23:06 WBC 12.8 H (4.0-11.0) 10^3/uL RBC 4.15 L (4.20-5.40) 10^6/uL Hgb 13.1 (12.0-16.0) g/dL Hct 38.5 (36.0-48.0) % MCV 92.8 (81.0-99.0) fL MCH 31.6 (26.7-34.0) pg MCHC 34.0 (29.9-35.2) g/dL RDW 13.2 (11.0-15.0) % Plt Count 236 (150-450) 10^3/uL MPV 10.2 (9.5-13.5) fL Neut % (Auto) 61.9 (43.0-75.0) % Lymph % (Auto) 29.2 (20.5-60.0) % [place] % (Auto) 5.7 (1.7-12.0) % Eos % (Auto) 1.6 (0.9-7.0) % Baso % (Auto) 0.7 (0.2-2.0) % Neut # (Auto) 8.0 H (1.4-6.5) 10^3/uL Lymph # (Auto) 3.7 (1.2-3.8) 10^3/uL [place] # (Auto) 0.7 (0.3-0.8) 10^3/uL Eos # (Auto) 0.2 (0.0-0.7) 10^3/uL Baso # (Auto) 0.1 (0.0-0.1) 10^3/uL Abs Immat Gran (auto) 0.11 H (0.00-0.03) 10^3/uL Imm/Tot Granulo (auto) 0.9 H (0.0-0.5) % ESR 61 H (<=30) mm/hr Sodium 137 (136-145) mmol/L Potassium 3.4 L (3.5-5.1) mmol/L Chloride 98 (98-107) mmol/L Carbon Dioxide 31.9 (21.0-32.0) mmol/L Anion Gap 10.5 BUN 5.0 L (7.0-18.0) mg/dL Creatinine 1.03 H (0.55-1.02) mg/dL Est GFR ( Amer) >60 (>=60) Est GFR (Non-Af Amer) 56 L (>=60) BUN/Creatinine Ratio 4.9 Glucose 140 H (74-106) mg/dL Calcium 9.8 (8.5-10.1) mg/dL C-Reactive Protein 1.48 H (<=0.50) mg/dL Discharge Plan Discharge Stand Alone Forms: Portal Instructions Chief Complaint: Back Pain/Injury Clinical Impression: Chronic back pain Patient Disposition: Home, Self-Care Mode of Transportation: Private Vehicle Prescriptions / Home Meds: No Action alendronate 70 mg tablet 70 mg PO QWEEK alprazolam 1 mg tablet 1 mg PO TID PRN (Reason: anxiety) aripiprazole 15 mg tablet 15 mg PO DAILY atorvastatin 80 mg tablet 80 mg PO DAILY calcium carbonate 600 mg calcium (1,500 mg) tablet 600 mg PO BID carvedilol 25 mg tablet 25 mg PO BID cetirizine 10 mg tablet 10 mg PO DAILY cyclobenzaprine 10 mg tablet 10 mg PO Q8H PRN (Reason: spasms) Print Language: Somali Instructions: Chronic Pain (ED) Additional Instructions: follow up with your doctor next week for recheck Referrals: IVON GIRON [Primary Care Provider] - 1 week Discharge Date/Time: 01/11/24 00:42
[2024-01-10 23:16] LABS: Basophils Absolute Auto 0.1 10^3/uL (0.0-0.1); Basophils Percent Auto 0.7 % (0.2-2.0); Eosinophils Absolute Auto 0.2 10^3/uL (0.0-0.7); Eosinophils Percent Auto 1.6 % (0.9-7.0); Hematocrit 38.5 % (36.0-48.0); Hemoglobin 13.1 g/dL (12.0-16.0); Immature Granulocytes Abs Auto 0.11 10^3/uL (0.00-0.03); Immature Granulocytes Pct Auto 0.9 % (0.0-0.5); Lymphocytes Absolute Auto 3.7 10^3/uL (1.2-3.8); Lymphocytes Percent Auto 29.2 % (20.5-60.0); Mean Corpuscular Hemoglobin 31.6 pg (26.7-34.0); Mean Corpuscular Volume 92.8 fL (81.0-99.0); Mean Platelet Volume 10.2 fL (9.5-13.5); Monocytes Absolute Auto 0.7 10^3/uL (0.3-0.8); Monocytes Percent Auto 5.7 % (1.7-12.0); Neutrophils Percent Auto 61.9 % (43.0-75.0); Platelet Count 236 10^3/uL (150-450); Red Blood Count 4.15 10^6/uL (4.20-5.40); Red Cell Distribution Width 13.2 % (11.0-15.0); White Blood Count 12.8 10^3/uL (4.0-11.0)
[2024-01-10 23:21] LABS: Erythrocyte Sedimentation Rate 61 mm/hr (<=30)
[2024-01-10] MEDS: METHYLPREDNISOLONE SOD SUCC PF 125 MG/2 ML VIAL IVP (23:21)
[2024-01-10] MEDS: MAGNESIUM SULFATE IN WATER 2 GM/50 ML PREMIX IV (23:21)
[2024-01-10] MEDS: ORPHENADRINE 60 MG/ 2 ML VIAL IV (23:21)
[2024-01-10 23:34] LABS: Anion Gap 10.5; BUN Creatinine Ratio 4.9; C Reactive Protein 1.48 mg/dL (<=0.50); Calcium 9.8 mg/dL (8.5-10.1); Carbon Dioxide 31.9 mmol/L (21.0-32.0); Chloride 98 mmol/L (98-107); Estimated GFR (African America >60 (>=60); Estimated GFR (Non-African Ame 56 (>=60); Glucose 140 mg/dL (74-106); Potassium 3.4 mmol/L (3.5-5.1); Sodium 137 mmol/L (136-145)
[2024-01-10 23:44] VITALS: BP 99/70; PULSE 72; O2SAT 90
[2024-01-10 23:45] VITALS: O2SAT 89
== END 2024-01-11 00:42 | disposition home or self-care (01) ==
PROVIDERS: Emergency Provider Internal Medicine; PCP Family Medicine
DX: M54.9 Dorsalgia, unspecified (principal); G89.29 Other chronic pain
CPT/HCPCS: 36415; 80048; 85025; 85652; 86140; 96365; 96375; 99284; J2919

== ENCOUNTER 2024-02-26 12:53 | Outpatient (RCR) | payer OTHER, SELFPAY | END 2024-02-28 14:41 | disposition home or self-care (01) | LOC: OT 12:53 | PROVIDERS: PCP Family Medicine; Visit Provider Psychiatry & Neurology Neurology | DX: M51.36 Other intervertebral disc degeneration, lumbar region (principal); R26.9 Unspecified abnormalities of gait and mobility; M54.16 Radiculopathy, lumbar region; R26.2 Difficulty in walking, not elsewhere classified; M47.816 Spondylosis without myelopathy or radiculopathy, lumbar region; M47.817 Spondylosis without myelopathy or radiculopathy, lumbosacral region; G62.9 Polyneuropathy, unspecified | CPT/HCPCS: 97167 ==

== ENCOUNTER 2024-04-19 12:02 | Emergency (ER) | payer OTHER, SELFPAY ==
--- OUTSIDE RECORDS SUMMARY | 2024-04-19 12:12 | XMS_ITS | CCD ---
Author Organization [facility] Care Team Providers Care Private Sector Executive Name Role Phone ROBERT GIRON Primary Care Physician Valarie Herrera Unavailable VALARIE HERRERA Attending Unavailable FURLOCHARLI, DR ROBERT Santiago Primary Care Unavailable JAVIER, VALARIE Admitting Unavailable NEFCYNICOLE Consulting Unavailable JAVIER VALARIE Consulting Unavailable CAROLA ., JAMAR Attending Unavailable FURLOCHARLI, DR ROBERT Santiago Primary Care Unavailable CAROLA ., JAMAR Admitting Unavailable CAROLA ., JAMAR Consulting Unavailable MISC, DR MALIN Attending Unavailable MISC, DR MALIN Admitting Unavailable FURLONG, DR ROBERT Santiago Primary Care Unavailable CAROLA ., JAMAR Admitting Unavailable FURLONG, DR ROBERT Santiago Primary Care Unavailable CAROLA ., JAMAR Consulting Unavailable CAROLA ., JAMAR Attending Unavailable PAY ., DR CABEZAS Attending Unavailable FURLONG, DR ROBERT Santiago Primary Care Unavailable GRECHNY .SHARYN Consulting Unavailabl e PAY ., DR CABEZAS Admitting Unavailable NEFCYNICOLE Consulting Unavailable JAJA, ELIUD Attending Unavailable FURLONG, DR ROBERT Santiago Primary Care Unavailable JAJA, ELIDU Admitting Unavailable MISC, DR MALIN Admitting Unavailable MISC, DR MALIN Attending Unavailable FURLOCHARLI, DR ROBERT Santiago Primary Care Unavailable MISC, [...] ROBERT Santiago Primary Care Unavailable REINECK, DR JEAN-PIERRE Santiago Consulting Unavailabl e REINECK, DR JEAN-PIERRE Santiago Attending Unavailabl e REINECK, DR JEAN-PIERRE Santiago Admitting Unavailabl e PAULA, SUJIT Consulting Unavailable FURLONG, DR ROBERT Santiago Primary Care Unavailable REINECK, DR JEAN-PIERRE Santiago Consulting Unavailabl e REINECK, DR JEAN-PIERRE Santiago Attending Unavailabl e REINECK, DR JEAN-PIERRE Santiago Admitting Unavailabl e LOYDATEKAUSHIK, LILIANA Consulting Unavailable FURLONG, DR ROBERT Santiago Primary Care Unavailable DANANY ., SHARYN LEES Consulting UnavailTUTU Mclean Attending Unavailable TUTU HANSON Admitting Unavailable DO Robert Giron Primary Care Provider [phone] WILMA Herrera Attending Provider [phone] NUIRA SANCHEZ Referring Unavailable DRAGAN SEN Primary Care Unavailable Furlong Robert BYRNES Primary Care Provider [phone] Robert Giron MD Primary Care Provider ROBERT GIRON Referring Unavailable ROBERT GIRON Primary Care Unavailable JOEL ALSTON Attending Unavailable ROBERT GIRON Referring Unavailable ROBERT GIRON Primary Care Unavailable JOEL ALSTON Attending Unavailable ROBERT GIRON Referring Unavailable NELLALOROBERT AUGUSTIN Primary Care Unavailable ROBERT GIRON Attending Unavailable ROBERT GIRON Referring Unavailable FURLONGROBERT Primary Care Unavailable JOEL ALSTON Attending Unavailable ROBERT GIRON Referring Unavailable FURLONGROBERT Primary Care Unavailable FURLONG, ROBERT G Attending Unavailable NELLALONG, ROBERT G Referring Unavailable FURLONG, ROBERT G Primary Care Unavailable NONE, XXXX Referring Unavailable MYRNA Carmen Attending Unavailable Christofferson, ZINA Cady L Admitting Carolina vailable Christofferson, ZINA Cady L Attending Carolina vailable Christofferson, ZINA Cady L Referring Carolina vailable Inessa Grajeda Attending Unavailable POLLY MARIANO Attending Unavailable POLLY MARIANO Attending Unavailable POLLY MARIANO Attending Unavailable DO Andrew Eid Admitting Unavailabl e Andrew Eid Attending Unavailable Andrew Eid Referring Unavailable Andrew Eid Admitting Unavailable Andrew Eid Attending Unavailable NELLALOCHARLI, ROBERT Referring Unavailable Cady Alva Attending Unavailable Nuria Sanchez Referring Unavailable MYRNA Alva Admitting Unavailabl e Cady Alva Attending Unavailable MYRNA Alva Admitting Unavailabl e FURLOCHARLI, ROBERT Referring Unavailable MYRNA Alva Admitting Unavailabl e FURLONG, ROBERT Referring Unavailable Cady Alva Attending Unavailable NONE, XXXX Referring Unavailable Elliott SOLIS Admitting Unavailable Elliott SOLIS Attending Unavailable NONE, XXXX Referring Unavailable Christofferson, ZINA Cady L Admitting Carolina vailable Christofferson, ZINA Cady L Attending Carolina vailable NONE, XXXX Referring Unavailable Elliott SOLIS Admitting Unavailable Elliott SOLIS Attending Unavailable NONE, XXXX Referring Unavailable Christannaerson, ZINA Cady L Attending Carolina vailable DO Robert Giron Primary Care Provider [phone] WILMA Herrera Attending Provider [phone] FURMELVINNG, ROBERT G Primary Care Unavailable PHIL NASH Attending Unavailable PHIL NASH Referring Unavailable FURLONG, ROBERT G Primary Care Unavailable JOEL ALSTON Referring Unavailable FURLONG, ROBERT G Primary Care Unavailable KURT CHAPMAN Attending Unavailable KURT CHAPMAN Referring Unavailable FURLONG, ROBERT G Primary Care Unavailable JOEL ALSTON Referring Unavailable FURLONG, ROBERT G Primary Care Unavailable FURLONG, ROBERT G Primary Care Unavailable KARLOS GUERRA Attending Unavailab KAMILLE Meeks Attending Unavailable KAMILLE JACKSON Referring Unavailable FURLONG, ROBERT G Primary Care Unavailable FURLONG, ROBERT G Referring Unavailable FURLONG, ROBERT G Primary Care Unavailable KURT CHAPMAN Referring Unavailable FURLONG, ROBERT G Primary Care Unavailable KURT CHAPMAN Attending Unavailable KURT CHAPMAN Referring Unavailable FURLONG, ROBERT G Primary Care Unavailable Javier, Valarie Attending Unavailable Javier, Valarie Admitting Unavailable Furlong, Robert Primary Care Unavailable ANDRIA CARTER Attending Unavailable FURLONG, ROBERT G Referring Unavailable SANCHEZNURIA Attending Unavailable BROWNMARTIN Attending Unavailable BROWNMARTIN Attending Unavailable ROSHAN HOLLOWAY Attending Unavailable FURLONG, ROBERT G Referring Unavailable BROWN, MARTIN Jerome Attending Unavailable BROWN, MARTIN A Referring Unavailable BROWN, MARTIN Jerome Attending Unavailable BROWN, MARTIN Jerome Attending Unavailable SANCHEZNURIA Attending Unavailable BROWN, MARTIN Jerome Attending Unavailable BROWN, MARTIN Queenie Referring Unavailable BROWN, MARTIN Jerome Attending Unavailable BROWN, MARTIN Jerome Attending Unavailable ИВАН HARMAN Attending Unavailable FURLONG, ROBERT G Referring Unavailable BLACKSTONKAYLAH Attending Unavailable FURLONG, ROBERT G Referring Unavailable SANCHEZNURIA Attending Unavailable CATY MALHOTRA Attending Unavailable FURLONG, ROBERT G Referring Unavailable RITCHIE KIRBY Attending Unavailab ИВАН Toro Attending Unavailable FURLONG, ROBERT G Referring Unavailable TATTERSИВАН WU Attending Unavailable FURLONG, ROBERT G Referring Unavailable BROWNMARTIN Attending Unavailable FRENCH LEVINE Attending Unavailable FURLONG, ROBERT G Referring Unavailable KELBLEYCATY Attending Unavailable FURLONG, ROBERT G Referring Unavailable ANDRIA CARTER Attending Unavailable FURLONG, ROBERT G Referring Unavailable BROWNMARTIN Attending Unavailable BLACKSTONKAYLAH Attending Unavailable FURLONG, ROBERT G Referring Unavailable KELBLEYCATY Attending Unavailable FURLONG, ROBERT G Referring Unavailable FRENCH LEVINE Attending Unavailable ANA CORONADO Attending Unavailable KURT CHAPMAN Referring Unavailable ANA CORONADO Attending Unavailable KURT CHAPMAN Referring Unavailable ANA CORONADO Attending Unavailable KURT CHAPMAN Referring Unavailable ANA CORONADO Attending Unavailable KURT CHAPMAN Referring Unavailable BROWNMARTIN Attending Unavailable CJ QUESADA Attending Unavailable MARTIN ARANGO Attending Unavailable CJ QUESADA Attending Unavailable PASTORA LYNN Attending Unavailable KAYLAH CORONADO Attending Unavailable CJ QUESADA Referring Unavailable Allergies Allergy Classification Reported Allergen(s) Allergy Type Date of Onset Reaction(s) Facility (20 sources) Acetaminophen / HYDROcodone; Translations: [acetaminophen-hydr ocodone] Drug Allergy Unknown (qualifier value), rash [facility] (20 sources) Adhesive Tape; Translations: [Tape] Drug allergy Eruption of skin (disorder), rash [facility] (20 sources) Amitriptyline; Translations: [amitriptyline] Drug Allergy Vomiting (disorder), Abnormal Behavior [facility] (20 sources) Amoxicillin; Translations: [amoxicillin] Drug Allergy Vomiting [facility] (20 sources) Amoxicillin / Clavulanate; Translations: [amoxicillin-clavul anate] Drug Allergy Vomiting (disorder), GI Disturbance [facility] (20 sources) atomoxetine; Translations: [atomoxetine] Drug Allergy Palpitations, Other (See Comments) [facility] Comment on above: (atomoxetine) (20 sources) buPROPion; Translations: [bupropion] Drug Allergy Palpitations [facility] (20 sources) Codeine; Translations: [codeine] Drug Allergy Eruption of skin (disorder), Hives, Rash [facility] (20 sources) Dexamethasone; Translations: [dexamethasone] Drug Allergy Menopausal flushing (finding) [facility] Comment on above: (dexamethasone) (20 sources) Doxycycline; Translations: [doxycycline] Drug Allergy GI Disturbance, Palpitations [facility] (20 sources) DULoxetine; Translations: [duloxetine] Drug Allergy 019 Unknown (qualifier value), hives [facility] (20 sources) fluticasone; Translations: [fluticasone] Drug Allergy Unknown (qualifier value) [facility] (20 sources) fluticasone / salmeterol; Translations: [fluticasone-salmet su] Drug Allergy 013 Eruption of skin (disorder), rash, Itching, Palpitations [facility] (20 sources) gabapentin; Translations: [gabapentin] Drug Allergy Unknown (qualifier value) [facility] (20 sources) Ibuprofen; Translations: [ibuprofen] Drug Allergy Eruption of skin (disorder), rash, GI Disturbance, Nausea And Vomiting [facility] (20 sources) Ketorolac; Translations: [ketorolac] Drug Allergy 017 Unknown (qualifier value) [facility] (20 sources) meloxicam; Translations: [meloxicam] Drug Allergy Unknown (qualifier value) [facility] (20 sources) Methadone; Translations: [methadone] Drug Allergy Vomiting (disorder), GI Disturbance, Nausea And Vomiting [facility] (20 sources) milnacipran; Translations: [milnacipran] Drug Allergy Unknown (qualifier value), Other (See Comments) [facility] (20 sources) moxifloxacin; Translations: [moxifloxacin] Drug Allergy Eruption of skin (disorder), rash, Nausea Only [facility] (20 sources) NITROFURANTOIN, MACROCRYSTALS / Nitrofurantoin, Monohydrate; Translations: [nitrofurantoin] Drug Allergy Other (See Comments) [facility] (20 sources) OXcarbazepine; Translations: [oxcarbazepine] Drug Allergy 017 Unknown (qualifier value), GI Disturbance, Palpitations [facility] (20 sources) PARoxetine; Translations: [paroxetine] Drug Allergy 023 Unknown (qualifier value), Hives [facility] (20 sources) Penicillins; Translations: [penicillins] Drug allergy 012 Unknown (qualifier value), GI Disturbance, Hives, Other (See Comments), Vomiting [facility] (20 sources) pregabalin; Translations: [pregabalin] Drug Allergy 017 Unknown (qualifier value), Other (See Comments), Palpitations [facility] (20 sources) rOPINIRole; Translations: [ropinirole] Drug Allergy Altered mental status [facility] (20 sources) Shellfish; Translations: [shellfish] Drug allergy Eruption of skin (disorder), rash [facility] (20 sources) Sulfamethoxazole / Trimethoprim; Translations: [sulfamethoxazole-t rimethoprim] Drug Allergy Vomiting (disorder) [facility] (20 sources) topiramate; Translations: [topiramate] Drug Allergy Vomiting (disorder), GI Disturbance, Other (See Comments) [facility] (20 sources) Valproate; Translations: [divalproex sodium] Drug Allergy Alopecia (disorder) [facility] (20 sources) Verapamil; Translations: [verapamil] Drug Allergy Vomiting (disorder), GI Disturbance, GI intolerance [facility] (20 sources) ziprasidone; Translations: [ziprasidone] Drug Allergy Unknown (qualifier value), Palpitations, Other (See Comments) [facility] (6 sources) Adhesive Tape; Translations: [Adhesive tape] Allergy to substance contact dermatitis [facility] (18 sources) Fish Containing Products; Translations: [FISH CONTAINING PRODUCTS] Allergy to substance [address] [facility] (6 sources) Codeine Drug Allergy rash [facility] [employer] Other (6 sources) torodol Propensity to adverse reactions severe abdominal pain [facility] [employer] Other (20 sources) Methocarbamol; Translations: [methocarbamol] Drug Allergy 023 Unknown (qualifier value), Other (See Comments) [facility] (2 sources) Acetaminophen / HYDROcodone Drug Allergy [facility] (2 sources) Amitriptyline Drug Allergy [facility] (2 sources) Amoxicillin / Clavulanate Drug Allergy [facility] (3 sources) atomoxetine; Translations: [Strattera] Drug Allergy [facility] (1 source) atorvastatin Drug Allergy [facility] (2 sources) buPROPion Drug Allergy [facility] (2 sources) carBAMazepine Drug Allergy [facility] (1 source) Clindamycin Drug Allergy 016 [facility] (2 sources) Codeine Drug Allergy [facility] (3 sources) Dexamethasone; Translations: [Decadron] Drug Allergy [facility] (2 sources) Diclofenac Drug Allergy [facility] (2 sources) Doxycycline Drug Allergy [facility] (2 sources) DULoxetine Drug Allergy [facility] (15 sources) Fish derivative; Translations: [FISH DERIVED] Drug allergy (disorder) Hives [facility] (2 sources) Fluorometholone Drug Allergy [facility] (2 sources) fluticasone / salmeterol Drug Allergy [facility] (2 sources) gabapentin Drug Allergy [facility] (2 sources) hydrOXYzine Drug Allergy [facility] (2 sources) Ibuprofen Drug Allergy [facility] (2 sources) Ibuprofen Drug Allergy [facility] (1 source) Ketorolac Drug Allergy [facility] (2 sources) Ketorolac Drug Allergy [facility] (2 sources) meloxicam Drug Allergy [facility] (2 sources) Methadone Drug Allergy [facility] (2 sources) Methocarbamol Drug Allergy [facility] (2 sources) milnacipran Drug Allergy [facility] (2 sources) moxifloxacin Drug Allergy [facility] (2 sources) Nitrofurantoin Drug Allergy [facility] (2 sources) OXcarbazepine Drug Allergy [facility] (2 sources) PARoxetine Drug Allergy [facility] (3 sources) pregabalin; Translations: [Lyrica] Drug Allergy [facility] (2 sources) rOPINIRole Drug Allergy [facility] (1 source) Sulfonamides (Antibiotic) Drug allergy (disorder) [facility] (2 sources) topiramate Drug Allergy [facility] (2 sources) Valproate Drug Allergy [facility] (1 source) Verapamil Drug Allergy [facility] (3 sources) ziprasidone; Translations: [Geodon] Drug Allergy [facility] (16 sources) Adhesive agent; Translations: [ADHESIVE] Propensity to adverse reactions to drug 012 Rash [facility] Work Phone: (17 sources) atomoxetine; Translations: [ATOMOXETINE HCL] Drug Allergy 011 GI Disturbance, Palpitations [facility] (13 sources) buPROPion; Translations: [BUPROPION HCL] Drug Allergy GI Disturbance, Palpitations [facility] (17 sources) DULoxetine; Translations: [DULOXETINE HCL] Drug Allergy 023 [facility] (17 sources) Eicosapentaenoate; Translations: [EICOSAPENTAENOIC ACID] Drug Allergy [facility] (13 sources) Ketorolac; Translations: [KETOROLAC TROMETHAMINE] Drug Allergy Other (See Comments) [facility] (13 sources) moxifloxacin; Translations: [MOXIFLOXACIN-SOD.C HLORIDE(ISO)] Drug Allergy 017 Nausea [facility] (13 sources) PARoxetine; Translations: [PAROXETINE HCL] Drug Allergy 019 [facility] (15 sources) Shellfish; Translations: [SHELLFISH CONTAINING PRODUCTS] Propensity to adverse reactions to drug [facility] (15 sources) Shellfish; Translations: [SHELLFISH DERIVED] Propensity to adverse reactions to drug [facility] (14 sources) Sulfamethoxazole; Translations: [SULFAMETHOXAZOLE] Drug Allergy Other (See Comments) [facility] (13 sources) Valproate; Translations: [DIVALPROEX] Drug Allergy [facility] (13 sources) Valproate; Translations: [VALPROIC ACID] Drug Allergy [facility] (13 sources) Verapamil; Translations: [VERAPAMIL HCL] Drug Allergy [facility] (17 sources) ziprasidone; Translations: [ZIPRASIDONE HCL] Drug Allergy Palpitations, Hives [facility] (13 sources) Adhesive Tape-Silicones; Translations: [ADHESIVE TAPE-SILICONES] Propensity to adverse reactions to drug Other (See Comments), [facility] (4 sources) atomoxetine Drug Allergy Palpitations [facility] [...] (4 sources) Shellfish Allergy to substance Rash [facility] (4 sources) Sulfamethoxazole Propensity to adverse reactions [facility] (4 sources) Topiramate Allergy to substance GI intolerance [facility] (4 sources) Valproate Drug Allergy [facility] (4 sources) ziprasidone Drug Allergy Palpitations [facility] (7 sources) Amoxicillin-Pot Clavulanate; Translations: [AMOXICILLIN-POT CLAVULANATE] Drug Intolerance Nausea And Vomiting [facility] (4 sources) Aloe-Sodium Chloride Propensity to adverse reactions [facility] (4 sources) Fish-Derived Products Drug Intolerance [facility] (4 sources) Moxifloxacin Hcl In Nacl Drug Intolerance [facility] (4 sources) Other Propensity to adverse reactions Hives [facility] (4 sources) Wound Dressing Adhesive Drug Allergy Rash [facility] (3 sources) Dexamethasone; Translations: [DEXAMETHASONE (PF)] Drug Allergy [facility] (3 sources) Sulfamethoxazole / Trimethoprim; Translations: [SULFAMETHOXAZOLE-T RIMETHOPRIM] Drug Allergy [facility] (3 sources) NITROFURANTOIN MONOHYD/M-CRYST; Translations: [NITROFURANTOIN MONOHYD/M-CRYST] Propensity to adverse reactions to drug (disorder) [facility] (3 sources) FLUTICASONE PROPION-SALMETEROL; Translations: [FLUTICASONE PROPION-SALMETEROL] Propensity to adverse reactions to drug (disorder) [facility] (7 sources) Aloe vera preparation; Translations: [SODIUM CHLORIDE-ALOE VERA] Drug Allergy [facility] (1 source) Fish - dietary; Translations: [Fish] Food allergy (disorder) [facility] (2 sources) Acetaminophen; Translations: [acetaminophen] Drug Allergy [facility] (2 sources) Clavulanate; Translations: [clavulanic acid] Drug Allergy [facility] (2 sources) HYDROcodone; Translations: [hydrocodone] Drug Allergy [facility] (2 sources) salmeterol; Translations: [salmeterol] Drug Allergy rash [facility] (2 sources) Trimethoprim; Translations: [trimethoprim] Drug Allergy vomiting [facility] (2 sources) Valproate; Translations: [divalproex sodium] Drug Allergy hair loss [facility] (1 source) Adhesive agent Drug allergy (disorder) [facility] (1 source) Amitriptyline Drug Allergy [facility] (1 source) Amoxicillin Drug Allergy [facility] (1 source) atomoxetine Drug Allergy [facility] (1 source) buPROPion Drug Allergy [facility] (1 source) Codeine Drug Allergy [facility] (1 source) Dexamethasone Drug Allergy [facility] (1 source) Doxycycline Drug Allergy [facility] (1 source) DULoxetine Drug Allergy [facility] (1 source) fluticasone Drug Allergy [facility] (1 source) gabapentin Drug Allergy [facility] (1 source) Ibuprofen Drug Allergy [facility] (1 source) Ketorolac Drug Allergy [facility] (1 source) meloxicam Drug Allergy [facility] (1 source) Methadone Drug Allergy [facility] (1 source) milnacipran Drug Allergy [facility] (1 source) moxifloxacin Drug Allergy [facility] (1 source) OXcarbazepine Drug Allergy [facility] (1 source) PARoxetine Drug Allergy [facility] (1 source) pregabalin Drug Allergy [facility] (1 source) rOPINIRole Drug Allergy [facility] (1 source) Sulfamethoxazole Drug Allergy [facility] (1 source) topiramate Drug Allergy [facility] (1 source) Verapamil Drug Allergy [facility] (1 source) ziprasidone Drug Allergy [facility] Medications Current Medications Medication Drug [...] Blood glucose Start Date: 10/25/21 Status: Ordered [id number] 200 actuat albuterol 0.09 mg/actuat metered dose [...] nebulizer alendronic acid 70 mg oral tablet (20 sources) Bisphosphonate Start: 2022 take 70 mg [...] 0.5 mg by mouth three times daily Alprazolam Active 0.5 MG PO Three times daily June 14, 2021 12:00am ARIPiprazole 15 mg oral tablet (20 sources) [...] tablet 11 12/27/2022 Active Start: 04-28-2018 take 40 mg by [...] day(s), # 6 tab(s), Refills(s) 0, Pharmacy: [facility] #[facility], 163, cm, 10/20/22 10:48:00 EST, Height/Length [...] Date: 09/04/21 Status: Ordered Start: 06-14-2021 take 0.5 mg by mouth twice daily Benztropine Active 0.5 MG PO Twice daily June 14, 2021 12:00am bifidobacterium infantis 4 mg oral capsule (4 sources) Start: 10-29-2022 End: 11-26-2022 take 1 capsule by mouth once daily Align 4 mg oral capsule 4 mg = 1 cap(s), Oral, Daily, X 28 day(s), # 28 cap(s), Refills(s) 0, Pharmacy: [facility], 163, cm, 10/29/22 14:56:00 EDT, Height/Length Dosing, 77.3, kg, 10/29/22 14:56:00 EDT, Weight Dosing Start Date: 10/29/22 Stop Date: 11/26/22 Status: Ordered blood-glucose meter,continuous (DEXCOM G6 [employer]) [facility] (10 sources) Start: 10-24-2022 blood-glucose meter,continuous (DEXCOM G6 [employer]) [facility] Indications: Type 2 diabetes mellitus without complication, [...] each 1 06/24/2023 Active Budesonide / formoterol (5 sources) Corticosteroid, beta2-Adrenergic Agonist Start: 09-04-2021 Symbicort Inhalation, BID, Refill(s) 0, COPD Start Date: 09/04/21 Status: Ordered Start: 06-14-2021 take 1 puff(s) by in halation once daily at bedtime Budesonide-Formoterol (Symbicort) 160-4.5 mcg/actuation HFA aerosol inhaler Active 2 PUFF INHALATION Daily at bedtime June 14, 2021 12:00am 168 hr buprenorphine 0.005 mg/hr transdermal system (1 source) Partial Opioid Agonist Start: 01-15-2024 End: 02-12-2024 Butrans 5 mcg/hr transdermal film, extended release 1 patch(es), TransDermal, qWeek for 4 week(s), 4 patch(es), Refill(s) 0, [facility], 163, cm, 01/15/24 8:23:00 EDT, Height/Length Dosing, 75.4, kg, 01/15/24 8:23:00 EDT, Weight Dosing Start Date: 01/15/24 Stop Date: 02/12/24 Status: Ordered Calcium (20 sources) Phosphate Binder, Calcium Start: [...] BID, # 180 tab(s), Refills(s) 3, Pharmacy: [facility] 1155, 163, cm, 07/25/23 10:41:00 EST, Height/Length Dosing, 80.8, kg, 07/25/23 10:47:00 EST, Weight Dosing Start Date: 07/30/23 Status: Ordered Start: 03-06-2022 take 1 tablet by colin twice daily carvedilol 25 mg Tab 25 mg = 1 tab(s), Oral, BID, # 180 tab(s), Refills(s) 1, Pharmacy: [facility] 1155, 162, cm, 03/06/22 10:28:00 EDT, Height/Length [...] take 10 mg by mouth once daily Cetirizine Active 10 MG PO Daily June 14, 2021 12:00am cholestyramine resin 4000 mg powder for oral [...] same time. 0 Active Continuous Blood Gluc Supervisory Air Intercept Controller (Dexcom G6 clay house worker) device (4 sources) Start: 10-24-2022 Continuous Blood Gluc Supervisory Air Intercept Controller (Dexcom G6 clay house worker) device 1 UNIT YEARLY 0 10/24/2022 Active Continuous Blood Gluc Sensor (Dexcom G6 Sensor) misc (4 sources) Start: 01-21-2023 Continuous Blood Gluc Sensor (Dexcom G6 Sensor) [facility] USE 1 UNIT DIRECTED AND CHANGE EVERY [...] completed) dicyclomine hydrochloride 20 mg oral tablet (9 sources) Anticholinergic Start: 06-14-2021 take 20 mg by mouth four times daily Dicyclomine Active 20 MG PO Four times daily June 14, 2021 12:00am take 1 tablet by colin th every eight hours Dicyclomine HCl 20 MG 1 tablet Orally Th ree times a day Active 24 hr dilTIAZem hydrochloride 120 mg extended release oral capsule (20 sources) Calcium Channel Laz Start: 07-05-2023 diltiazem [...] Date: 10/25/21 Status: Ordered Start: 06-14-2021 take 49734 ug by colin th every week Ergocalciferol (Vitamin D2) Active 26489 MCG PO every week June 14, 2021 [...] day(s), # 90 tab(s), Refills(s) 0, Pharmacy: [facility] #37, 163, cm, 10/29/22 14:56:00 EDT, Height/Length [...] take 20 mg by mouth once daily Furosemide Active 20 MG PO Daily June 14, 2021 12:00am glimepiride 4 mg oral tablet (20 sources) [...] needed Intramuscular every 6 hrs Active Injovy (3 sources) Start: 12-07-2021 Injovy Active 1 syringe [...] within 12 hours or as directed by MD.. 60 patch 11 07/22/2023 Active Start: 10-12-2022 [...] day(s), # 120 cap(s), Refills(s) 0, Pharmacy: [facility] #37, 163, cm, 10/29/22 14:56:00 EDT, [...] stool, # 120 tab(s), Refills(s) 6, Pharmacy: [facility] 1155, 162, cm, 03/30/20 10:05:00 EDT, [...] mononeuropathy, without long-term current use of insulin ([facility]) Take 1 tablet (500 mg total) by mouth daily with breakfast. 30 tablet 5 05/06/2023 10/30/2023 Discontinued (Reorder) Start: 09-20-2022 take 1 tablet by colin th twice daily metformin 500 mg Tab TAKE ONE TABLET BY MOUTH TWICE A DAY Start Date: 09/20/22 Status: Ordered montelukast 10 mg oral tablet (20 sources) Leukotriene Receptor Antagonist Start: 06-14-2021 take 10 mg by mouth once daily at bedtime Montelukast Active 10 MG PO Daily at bedtime June 14, 2021 12:00am [id number]-bfqu-TD-ca lcium &mins (THERAGRAN-M) 9 mg iron-400 mcg tablet (5 sources) uzljqyle-usqt-[id number] -c alcium &mins (THERAGRAN-M) 9 mg iron-400 mcg tablet Take 1 tablet by mouth in the morning. 0 Active nabumetone 750 mg oral tablet (17 sources) Nonsteroidal Anti-inflammatory Drug Start: 03-04-2023 End: 08-23-2023 nabumetone 750 mg Tab Refills(s) 0 Start Date: 09/17/23 Status: Ordered Naltrexone (1 source) Opioid Antagonist Start: 03-05-2024 take 1 tablet by mouth once daily naltrexone 1.5 mg oral capsule See Instructions, take one tablet daily, # 30 tab(s), Refills(s) 0, Pharmacy: [facility], 163, cm, 03/05/24 15:26:00 EDT, Height/Length Dosing, 72.8, kg, 03/05/24 15:26:00 EDT, Weight Dosing Start Date: 03/05/24 Status: Ordered naratriptan 2.5 mg oral tablet (20 sources) Serotonin-1b and Serotonin-1d Receptor Agonist Start: 10-12-2019 naratriptan 2.5 mg Tab 2.5 mg = 1 tab(s), Oral, As Directed, PRN Migraine headache, # 9 tab(s), Refills(s) 0 Start Date: 10/12/19 Status: Ordered nebulizer accessories misc (10 sources) Start: 01-25-2023 nebulizer accessories misc Indications: Chronic obstructive pulmonary disease, unspecified COPD type ([facility]) 1 Tube by inhal. via small vol.nebulizer route every 6 (six) months. 1 each 1 01/25/2023 Active nebulizers [facility] (10 sources) Start: 01-25-2023 nebulizers [facility] Indications: Chronic obstructive pulmonary disease, unspecified COPD type ([facility]) 1 Unit by miscellaneous route every [...] June 14, 2021 12:00am Start: 06-14-2021 take 25 mg by mouth once daily in the morning Nortriptyline Active 25 MG PO Every morning June 14, 2021 12:00am Nurtec ODT (20 sources) Start: 07-10-2021 take 75 mg by mouth every twenty-four hours as needed for headache Nurtec ODT 75 mg, Oral, q24hr, PRN as needed for migraine headache, Refills(s) 0 Start Date: 07/10/21 Status: Ordered nystatin 650702 unt/ml topical cream (17 sources) Polyene Antifungal Start: 06-27-2023 End: 08-18-2023 apply 15 g topically twice daily nystatin (MYCOSTATIN) cream APPLY TO AFFECTED AREA VIA TOPICAL ROUTE TWICE A DAY 15 g 0 08/18/2023 Active Start: 06-18-2023 End: 08-23-2023 nystatin (Mycostatin) 496104 UNIT/ML suspension TAKE 5ML FOUR TIMES A DAY IN AM, NOON, EVENING, AND AT BEDTIME FOR 7 DAYS 0 06/18/2023 Active nystatin 839128 unt/ml / triamcinolone acetonide 1 mg/ml topical [...] Status: Ordered Start: 06-22-2015 End: 09-26-2023 take 40 mg by mouth once daily Omeprazole Active 40 MG PO Daily June 14, 2021 12:00am take 1 capsule by mo uth once [...] # 90 tab(s), Refills(s) 0, [facility]: [facility], 163, cm, 09/14/22 13:14:00 EST, Height/Length [...] Date: 09/20/22 Status: Ordered polyethylene glycol 3350 446854 mg / potassium chloride 1480 mg / sodium bicarbonate 5720 mg / sodium chloride 14741 mg powder for oral solution (11 sources) Osmotic Laxative Start: 09-14-2022 take 2 doses by mouth once daily NuLYTELY Aquino oral powder for reconstitution See Instructions, 2 EA, Refill(s) 0, 240 mL Oral Daily, [facility], 163, cm, 09/14/22 13:14:00 EST, Height/Length Dosing, 79.6, kg, 09/14/22 13:14:00 EST, Weight Dosing Start Date: 09/14/22 Status: Ordered Start: 05-09-2022 NuLYTELY Cherr y oral powder for reconstitution See Instructions, 1 EA, Refill(s) 0, Prior to colonoscopy., [facility], 163, cm, 05/09/22 13:44:00 EDT, Height/Length [...] 0, PER PHYSICIAN INSTRUCTIONS. PRIOR TO COLONOSCOPY., [facility], 163, cm, 11/07/21 12:16:00 EDT, Height/Length [...] vomiting, # 90 tab(s), Refills(s) 0, Pharmacy: [facility]5, 162, cm, 05/15/22 13:20:00 EDT, [...] Status: Ordered rifAXIMin 550 mg oral tablet (9 sources) Rifamycin Antibacterial Start: 06-14-2021 take 1 [...] take 1 tablet by mouth once daily Thiamine Mononitrate (Vit B1) (Vitamin B-1 (Mononitrate)) 100 mg tablet Active 100 MG PO Daily June 14, 2021 12:00am tiZANidine 4 mg oral tablet (18 sources) Central alpha-2 Adrenergic Agonist Start: 08-05-2023 [...] Sig (Original) desoximetasone 0.5 mg/ml topical cream (3 sources) Corticosteroid Start: 06-14-2021 End: 12-07-2021 Desoximetasone Discontinued 0.05 APPLIC TOPICAL Twice daily June 14, 2021 12:00am December 07, 2021 10:26am diclofenac sodium 0.01 mg/mg topical gel (3 sources) Nonsteroidal Anti-inflammatory Drug Start: 06-14-2021 End: 12-07-2021 Diclofenac Sodium Discontinued 1 EACH TOPICAL Twice daily June 14, 2021 12:00am December 07, 2021 10:27am 1 ml erenumab-aooe 140 mg/ml auto-injector (5 sources) Start: 06-14-2021 End: 12-07-2021 inject 140 mg by subcutaneous injection every month Erenumab-Aooe (Aimovig Autoinjector) 140 mg/mL auto-injector Discontinued 140 MG SUBCUT every month June 14, 2021 12:00am December 07, 2021 10:28am takes on the of every month 12 hr orphenadrine citrate 100 mg extended release oral tablet (3 sources) Muscle Relaxant Start: 06-14-2021 End: 12-07-2021 take 100 mg by mouth twice daily Orphenadrine Citrate Discontinued 100 MG PO Twice daily June 14, 2021 12:00am December 07, 2021 10:33am QUEtiapine 50 mg oral tablet (3 sources) Atypical Antipsychotic Start: 06-14-2021 End: 12-07-2021 [...] Onset: 3 11-12-2022 Chronic Acute myocardial infarction (17 sources) Myocardial infarction; Translations: [Acute myocardial infarction, unspecified] Onset: 4 11-16-2022 Chronic Comment on above: 2004 Administrative/social [...] 4 10-25-2021 Episodic Cardiac dysrhythmias (1 source) Supraventricular tachycardia; Translations: [Supraventricular tachycardia] Onset: 4 Chronic Chronic obstructive pulmonary disease and bronchiectasis [...] spasm of esophagus] Onset: 4 01-23-2020 Chronic Esophageal disorders (1 source) Dilatation of esophagus; Translations: [Dilatation of esophagus] 03-30-2024 Episodic Essential hypertension (20 sources) Benign hypertension; Translations: [Hypertensive disorder] Onset: 2 09-11-2018 Chronic Fluid and electrolyte disorders (15 sources) Hyponatremia; Translations: [Hypo-osmolality and hyponatremia] Onset: 3 11-12-2022 Episodic Gastritis and duodenitis (20 sources) Gastritis; [...] Joint disorders and dislocations; trauma-related (1 source) Unspecified internal derangement of left knee; Translations: [Unspecified internal derangement of left knee] Onset: 4 Chronic Lymphadenitis (2 sources) Generalized enlarged lymph nodes; Translations: [Generalized enlarged lymph nodes] Onset: 4 Episodic Mood disorders (20 sources) Bipolar disorder; Translations: [Depressive disorder] Onset: 1 06-16-2015 Chronic Mycoses (2 sources) Candidiasis of mouth; Translations: [Candidal stomatitis] Onset: 4 08-16-2023 Episodic Nausea and vomiting (20 sources) Vomiting; Translations: [Nausea and vomiting] Onset: 3 11-07-2021 Episodic Osteoarthritis (20 sources) Degenerative joint disease involving multiple joints; Translations: [Osteoarthritis] Onset: 4 09-11-2018 Chronic Osteoporosis (20 sources) Osteoporosis; Translations: [Age-related osteoporosis without current pathological fracture] Onset: 3 11-16-2022 Chronic Other acquired deformities (16 sources) Contracture of joint of right ankle; Translations: [Contracture, right ankle] Onset: 3 06-06-2023 Chronic Other aftercare (1 source) Other shelter (current) drug therapy; 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: [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] Onset: 3 Episodic Other aftercare (4 sources) Encounter for change or removal of surgical wound dressing; Translations: [ENC CHG/REMOVAL SURG WOUND DRSG] Onset: 3 Episodic Other and ill-defined heart disease (7 sources) Diastolic dysfunction; Translations: [Heart disease, unspecified] 03-30-2024 Chronic Other and ill-defined heart disease (3 [...] Chronic Other diseases of bladder and urethra (13 sources) Overactive bladder; Translations: [Overactive bladder] Onset: [...] Onset: 3 09-14-2022 Episodic Other gastrointestinal disorders (15 sources) Incontinence of feces; Translations: [Full incontinence [...] 3 07-08-2023 Chronic Other nervous system disorders (1 source) Lesion of ulnar nerve, left upper limb; Translations: [Lesion of ulnar nerve, left upper limb] Onset: 4 Chronic Other nervous system disorders (1 source) Lesion of ulnar nerve, right upper limb; Translations: [Lesion of ulnar nerve, right upper limb] Onset: 4 Chronic Other nervous system disorders (1 source) Lesion of ulnar nerve, bilateral upper limbs; Translations: [Lesion of ulnar nerve, bilateral upper limbs] Onset: 4 Chronic Other non-traumatic joint disorders (1 source) Knee pain Onset: 4 Episodic Other non-traumatic joint disorders (1 source) Pain in left elbow; Translations: [Pain in left elbow] Onset: 4 Episodic Other non-traumatic joint disorders (1 source) Pain in right elbow; Translations: [Pain in right elbow] Onset: 4 Episodic Other nutritional; endocrine; and metabolic disorders (20 sources) Body mass index 30+ - obesity; Translations: [Obesity, unspecified] Onset: 2 04-09-2022 Chronic Other screening for suspected conditions (not mental disorders or infectious disease) (1 source) Encounter for screening for malignant neoplasm of respiratory organs; Translations: [Encounter for screening for malignant neoplasm of respiratory organs] Onset: 4 Episodic Other upper respiratory disease (14 sources) Allergic [...] Onset: 3 09-14-2022 Episodic Residual codes; unclassified (20 sources) Menopause present; Translations: [Asymptomatic menopausal state] Onset: 3 11-16-2022 Episodic Residual codes; unclassified (1 source) Acquired absence of both cervix and uterus; Translations: [ACQUIRED ABSENCE BOTH CERVIX AND UTERUS] Onset: 3 Episodic Residual codes; unclassified (1 source) History of nasal sinus surgery; Translations: [Other specified postprocedural states] 03-30-2024 Episodic Residual codes; unclassified (1 source) Past history of procedure; Translations: [Other specified postprocedural states] 03-30-2024 Episodic Residual codes; unclassified (1 source) Tobacco user; Translations: [Tobacco use] 03-30-2024 Episodic Spondylosis; intervertebral disc disorders; other back problems (20 sources) Spondylosis without myelopathy or radiculopathy, lumbosacral region; Translations: [Other intervertebral disc degeneration, lumbar region] Onset: 0 07-01-2023 Chronic Sprains and strains (18 sources) Sprain of unspecified ligament of left ankle, initial encounter; Translations: [Sprain of unspecified site of left knee, initial encounter] Onset: 2 04-04-2023 Episodic Substance-related disorders (20 sources) Smoker; Translations: [...] PAIN, UNSPECIFIED] Onset: 2 Unclassified (1 source) Pain medication/ discharged from pain [facility]. Onset: 4 Unclassified (1 source) Pre-op Exam Onset: 4 Unclassified (1 source) Low back pain, unspecified; Translations: [Low back pain, unspecified] Onset: 0 Urinary tract infections (1 source) Urinary tract infectious disease; Translations: [Urinary tract infection, site not specified] Onset: 3 Episodic Past or Other Problems Problem Classification Problem Date Documented Da te Episodic/Chronic Cardiac dysrhythmias (1 source) Tachycardia, unspecified; Translations: [TACHYCARDIA UNSPECIFIED] Onset: 2 Episodic Diseases of mouth; excluding dental (20 sources) Hypertrophy of parotid gland; Translations: [Hypertrophy of salivary gland] Onset: 1 12-14-2020 Episodic Fracture of upper limb (2 sources) [...] lumbar region] Onset: 1 Episodic Substance-related disorders (14 sources) Continuous opioid [...] Results Test Name Value Interpretation Reference Range Facility CT lung screeningon 03-31-20 CT lung screening [facility] [place] [address] [place] [address] CT Scan Report Signed Patient: Keturah Herrera MR#: [id number] : 1970 Acct:[id number] Age/Sex: 53 / F ADM Date: 03/31/24 Loc: [facility] Room: Type: [facility] Attending Dr: CARRILLO Boyd APRN Copies to: Valarie Herrera APRN, ACNP-BC Ordering Provider: Valarie Herrera APRN, ACNP-BC Date of Service: 03/31/24 CT/CT lung screening: F17.210 CT Chest lung screening without contrast TECHNIQUE: Axial imaging with 2-D reconstruction. The CT exam was performed using one or more the following dose reduction techniques: Automated exposure control, adjustment of the MA and/or Kv according to patient size, or use of the iterative reconstruction technique. History: 22 pack year history. Current smoker. COMPARISON: 04/03/2023 THYROID: Unremarkable TRACHEA AND BRONCHI: Patent ESOPHAGUS: Unremarkable. HEART: Within normal limits PERICARDIAL EFFUSION: None CORONARY ARTERY CALCIFICATION: Minimal MEDIASTINUM: No adenopathy. No pneumoperitoneum. No mediastinal hematoma. PULMONARY DAVID: No hilar mass or adenopathy is seen. THORACIC AORTA Unremarkable LUNG NODULE None LUNGS: Mild atelectasis/scarring. Mild emphysema and subpleural blebs redemonstrated. PLEURAL EFFUSION: None PNEUMOTHORAX: No pneumothorax seen. CHEST WALL: No abnormality AXILLA:Unremarkable BONY STRUCTURES Intact UPPER ABDOMEN: Images of the upper abdomen are noncontributory. CT/CT lung screening IMPRESSION: No visible lung nodule. Bullous emphysematous changes redemonstrated FINAL ASSESSMENT: Negative. Lung-RADS Version 1.0 Assessment Category: 1 REMARKS: Continued annual screening with LDCT in 12 months is recommended. Impression dictated by: Solo Alvarez M.D.03/31/2024 3:12 PM Dictation Location: [place] [address] Transcribed By: [facility] 03/31/24 1512 Dictated By: Solo Alvarez DO 03/31/24 1509 Signed By: 03/31/24 1512 [facility] MR KNEE LT WO CONTon 024 MR KNEE LT WO CONT MR KNEE LT WO CONT MR KNEE LT WO CONT CLINICAL INFORMATION: 53 years old Female with chronic left knee pain. COMPARISON: Left knee radiographs dated 01/31/2024. PROCEDURE: ?Multisequence, multiplanar MR images of the knee were obtained. FINDINGS: MENISCI Medial meniscus: Complex tear of the posterior horn that extends to the posterior root of the medial meniscus. Lateral meniscus: No tear. Discoid lateral meniscus. LIGAMENTS Anterior Cruciate Ligament: No tear. Posterior Cruciate Ligament: No tear. Medial collateral ligament complex: No tear. Lateral collateral ligament complex: No tear. Other: Small amount of fluid in the popliteus tendon sheath at the level of the musculotendinous junction, without a discrete tear. IT band is unremarkable. EXTENSOR MECHANISM Extensor mechanism: No significant tendinosis or discrete tear. The patella is normally positioned within the femoral groove There is no retinacular disruption. FLUID Fluid: Moderate-sized suprapatellar effusion with debris. Possible small cartilaginous loose body adjacent to the medial aspect of the patella proton density fat-sat sagittal image 21. No Clark's cyst. OSSEOUS and ARTICULAR STRUCTURES Bones: No fracture. No osteonecrosis. No suspicious osseous lesion. Patellofemoral compartment: Full-thickness cleft within the lateral patellar facet (series 6 image 12), an additional focal cartilage fissuring and irregularity of the medial facet. Mild chondromalacia. Medial compartment: Near complete chondral loss with multiple subchondral cysts within the medial femoral condyle and mild subchondral edema. Lateral compartment: Mild chondral thinning without focal defect. Other: None. IMPRESSION: * Complex tear of the posterior horn of the medial meniscus that extends to the posterior root. * Near complete chondral loss of the medial compartment with multiple subchondral cysts and subchondral edema. * Thickness cleft of the lateral patellar facet and additional cartilage fissuring and irregularity of the medial facet. * Moderate sized suprapatellar effusion with debris and possible small cartilaginous loose body. * Discoid lateral meniscus. No discrete lateral meniscal tear. Approved by Resident Oumar Jacobo DO on 03/31/2024 8:03 AM IJean-Pierre MD have personally reviewed the image(s) and agree with and/or edited the report Finalized by Jean-Pierre Silvestre MD on 03/31/2024 10:49 AM Normal [facility] BASIC METABOLIC PANLon 02-25 Anion gap [Moles/Vol] 10 mmol/L Normal 5-15 [facility] Comment on above: Performed By: #### C BCA, BMP #### [facility] ([id number]) [address], [address] [place] [address] Calcium [Mass/Vol] 10.1 mg/dL Normal 8.5-10.5 [facility] Comment on above: Performed By: #### C BCA, BMP #### [facility] ([id number]) [address], [address] [place] [address] Chloride [Moles/Vol] 102 mmol/L Normal 98-109 [facility] Comment on above: Performed By: #### C BCA, BMP #### [facility] ([id number]) [address], [address] [place] [address] CO2 [Moles/Vol] 28 mmol/L Normal 22-32 [facility] Comment on above: Performed By: #### C BCA, BMP #### [facility] ([id number]) [address], [address] [place] [address] Creatinine [Mass/Vol] 0.83 mg/dL Normal 0.40-1.00 [facility] Comment on above: Result Comment: METH OD TRACEABLE TO IDMS STANDARD Performed By: #### C BCA, BMP #### [facility] ([id number]) [address], [address] [place] [address] GFR/1.73 sq M.predicted among non-blacks MDRD (S/P/Bld) [Vol rate/Area] 84 mL/min/{1.73_m2} Normal >59 [facility] Comment on above: Result Comment: Reported eGFR is based on the CKD-EPI 2020 equation that does not use a race coefficient. Performed By: #### C BCA, BMP #### [facility] ([id number]) [address] [address] [place] [address] Glucose [Mass/Vol] 82 mg/dL Normal 65-99 [facility] Comment on above: Performed By: #### C FELIX, BMP #### [facility] ([id number]) [address] [address] [place] [address] Potassium [Moles/Vol] 4.1 mmol/L Normal 3.5-5.0 [facility] Comment on above: Performed By: #### C FELIX, BMP #### [facility] ([id number]) [address] [address] [place] [address] Sodium [Moles/Vol] 140 mmol/L Normal 134-146 [facility] Comment on above: Performed By: #### C BCA, BMP #### [facility] ([id number]) [address] [address] [place] [address] Urea nitrogen [Mass/Vol] 7 mg/dL Normal 5-23 [facility] Comment on above: Performed By: #### C BCA, BMP #### [facility] ([id number]) [address] [address] [place] [address] CBC AND AUTO DIFFon 07-10-20 24 ABSOLUTE BASOPHIL 0.2 X10E9/L Normal 0.0-0.2 [facility] Comment on above: Performed By: #### C BCA, BMP #### [facility] ([id number]) [address] [address] [place] [address] Basophils/100 WBC (Bld) 1.0 % Normal [facility] Comment on above: Performed By: #### C BCA, BMP #### [facility] ([id number]) [address], [address] [place] [address] Erythrocyte distribution width (RBC) [Ratio] 15.5 % High 11.5-15.0 [facility] Comment on above: Performed By: #### C BCA, BMP #### [facility] ([id number]) [address], [address] [place] [address] Hematocrit (Bld) [Volume fraction] 42.7 % Normal 35-47 [facility] Comment on above: Performed By: #### C BCA, BMP #### [facility] ([id number]) [address], [address] [place] [address] Hemoglobin (Bld) [Mass/Vol] 14.5 g/dL Normal 11.7-15.5 [facility] [facility] Comment on above: Performed By: #### C BCA, BMP #### [facility] ([id number]) [address], [address] [place] [address] Lymphocytes (Bld) [#/Vol] 3.3 10*3/uL Normal 1.0-3.5 [facility] Comment on above: Performed By: #### C BCA, BMP #### [facility] ([id number]) [address] [place] [address] Lymphocytes/100 WBC (Bld) 19.0 % Normal [facility] Comment on above: Performed By: #### C BCA, BMP #### [facility] ([id number]) [address], [address] [place] [address] MCH (RBC) [Entitic mass] 33.0 pg Normal 27-34 [facility] Comment on above: Performed By: #### C BCA, BMP #### [facility] ([id number]) [address], [address] [place] [address] MCHC (RBC) [Mass/Vol] 34.0 g/dL Normal 32-36 [facility] Comment on above: Performed By: #### Veronica WASHINGTON, BMP #### [facility] ([id number]) [address], [address] [place] [address] MCV (RBC) [Entitic vol] 97 fL Normal 80-100 [facility] Comment on above: Performed By: #### Veronica WASHINGTON, BMP #### [facility] ([id number]) [address], [address] [place] [address] Monocytes (Bld) [#/Vol] 0.7 10*3/uL Normal 0-0.9 [facility] Comment on above: Performed By: #### Veronica WASHINGTON, BMP #### [facility] ([id number]) [address], [address] [place] [address] Monocytes/100 WBC (Bld) 4.0 % Normal [facility] Comment on above: Performed By: #### Veronica WASHINGTON, BMP #### [facility] ([id number]) [address], [address] [place] [address] Neutrophils (Bld) [#/Vol] 13.4 10*3/uL High 1.5-6.6 [facility] Comment on above: Performed By: #### Veronica WASHINGTON, BMP #### [facility] ([id number]) [address], [address] [place] [address] Platelet mean volume (Bld) [Entitic vol] 9.1 fL Normal 7-12 [facility] Comment on above: Performed By: #### Veronica WASHINGTON, BMP #### [facility] ([id number]) [address], [address] [place] [address] Platelets (Bld) [#/Vol] 198 10*3/uL Normal 150-450 [facility] Comment on above: Performed By: #### Veronica WASHINGTON, BMP #### [facility] ([id number]) [address], [address] [place] [address] RBC COUNT 4.40 X10E12/L Normal 3.80-5.20 [facility] Comment on above: Performed By: #### Veronica WASHINGTON, BMP #### [facility] ([id number]) [address], [address] [place] [address] RBC morphology finding Nom (Bld) NORMAL Normal [facility] Comment on above: Performed By: #### Veronica WASHINGTON, BMP #### [facility] ([id number]) [address], [address] [place] [address] SEG NEUTROPHIL 76.0 % Normal [facility] Comment on above: Performed By: #### Veronica WASHINGTON, BMP #### [facility] ([id number]) [address], [address] [place] [address] WBC (Bld) [#/Vol] 17.6 10*3/uL High 4.0-11.0 [facility] Comment on above: Performed By: #### Veronica WASHINGTON, BMP #### [facility] ([id number]) [address], [address] [place] [address] Coding Summary.on 02-11-2024 Coding Summary. LNAQZxcx96OGs5aGb+PG hlYWQ+PE 8XTRYgT50emNJqwO6oU8JJPLqZSc alSHMNCAhZNhVgsxMoVL6tqGDgYZ Ju IC8+GH5fFBMuXjospVNdl0N1yTC4 F84bzx4tAAieuMW5VNTpMbRbhmen v6uviFd9DOomEdpwMuLl GRWkpP64CMQ7tF33Kq93lIUsqMIa c1qabDt6GoLmBGJwKOL1kIzeQVuy d4EqWAFzV88rqONnu0E0 DZAbwNinoZDnBeKlvCT9hT2gYHuv jbnfw5djckpiBuu0ng07dTXgv3S3 cCC3Q6LvnoC1DUUwwBVg IhgymCHXfO2mhjiht7ilqaqsUdKi CTTsMPe0WNw1EQUwnRdxVpRbLB98 WUD9WNWnthPqY2VfUEMa vOwoChO2a0X0Kl3QQ8RAChauD9KM TUFSWTwvdGQ+TG74oc29V5XxFibe Gsw2DZUoIXR6zWA0fO5c EJHtOXaqk3P3mLR4C3UitpObqz1j k0pgYPRmBFlnL30byCPov0C4XRYi eHR6UIJvhOrrGqSvcR32 Oyc+UOZtjNttw1DmRpygf0bbt7cn hZv6SjqkCABkfrSzxFqwXZB1t2Cf Wv3pLJHogKD1yTJ4hR9h XiZqCiH4QLcyZ539PnDhaNZgZlwa E73mR3TemEO+LRUtUhr0NBJxrQmi IV1mG7IiMLCsrfficPIz yBzgZQ5aMKIctllaTKWjaK3qMDWu X2n9FkVaNgO9NLmzH9WtIQLgssst Vl95qR6wHbIjHaY5WNov O2OearF5XRKmzBImDRfcUZZ5N07q a1Z1NXNhOADdZKC7sGO2dP3tlAdq bjogbGVmdDsgdmVydGlj BOreSUklH526WJWkgEfyEuUgDMsk ZyBEYXRlOiAgMDYvMjUvMjAyNDwv dGQ+ZQThUZV5dVovUEIn rMLdSMqhKb4syJfoiBcbLW9gBYXh hlhoLRKroG4pWGAqjGThlQhdCD9q QSWxedacp184EbWtUCO9 TPJvkJKaY2AooF0fKdOzFUIxYQTn H0FrcIRyOEinU253TYwmPbX0ZBIe boAmR7TjNGAccVzlOsN6 w3M2Dn4Qd6FqkkuiD5HekAYnYiDh VqhnYSu0S8CpAzdptYS+XR11BYZd VY57SBt3HKB2eKsiTCay HEEiT4BwlW1vKnWcCVIwHRUoDpc+ PHRhYmxlIHdpZHRoPScxMDAlJyBz sSfsXD4kQj9qSXBiLAQa nYfyjBShBbOvy1feACSdROyzIG6o eUueJ3YslID4HXAot6i2Vd43T40n I2RnuPW+JHBfnWP2dXX7 hN6rZwJbKlZ4FNtyX813QrXomBDr Dkfld3gyy0uzzHh8LmA7DUWxlmXs wXujDZQ5j0ImAo93K09h QIoqTZIrFKYyPIJiTTEffNmjrh9n aN3tId5+DSCirXZ5gIR3cX2jQhAw EyI9DGqxK437RyKylEJb Njiaq6sdm2wojGw2VqZxAZSwrkPn sJwrRSS3g7SxUs61R4LmpUchu2Ch Fdj3bq57pTMac0P6pDI2 N7HnSTOahpcvcALanUnnDG6zQVSk yttcYUZysC8vPMTiG3n8LvFyRyD1 KGjzM4JpswT0KZDobYPv GRHoaLCVzC0bcwyiw2oswxmxAgBo XKKgBMz1SLe9LUGnjIjlJaWqEYT1 AjH1NCN7eZZvgC4osNhm yeuqbM1lDig+ZBT2fUVevSGVVL1k OjwvdGQ+HBLfUAN5mLvvRKraSNRd rS3eGXCiO0t2CiIhUgB0 UHkdQ6EfgjB0HTVbcREpPSEgiWLQ eX8cumdtc4qvsinzVnPaLAUoUKo0 PVy7MZAmpSgvBpBmTIG2 XdA6UHS0jDPohT7xsEzbbwziaG4p Oyc+VonyxWyyLYH3NOf5N7WjPus0 KDKqfYwfLC6klDQpBSwm Nr2jdMownPkpIN8gHOEagunps408 EuFql6yjKRCbiJLmMAnjCTV7G57e c5I1WZLoGKArBNE4qUE3 hD7mnRuwaqiehVQmsHlswqFyuIjq RZkuFTtrX144QAJnjYyvFoMoZVh5 S4KnPaf9WUIdlKroAK1w hLRdVWqsFc3rhUcipDyqXV6cEFMu yvtoq033KlFpm6tqRPYojTZdTHxx UWS7R80ho1Q0YFLvQNHl DNS8cXP6uO2hkZrqbotlzVZgpQow goIxnMxaGZsoTVroX798UZTnhFro FnNkyJs3Q6LlEcu3NJSq pJfkBW7swXBeDAzeHz9ryBkjnSxs UQ5wCVWgxqizi152XpAmo4zgXAEr pGTuJQebZXC7C83aj9S3 WNJkJJMwHHU2cQT3yC0yvPwvpbms wIEtfHwbyaEziCwwMQcdRZapB406 IHRvcDsnPlBhdGllbnQg LQzbNFn6M5DcPcepcAZ+UE04LLMl JV01wESvtFTel6robCx4JjWvHFAk MOY2eYciGEwmc7TqZYHr D05bmZCna8C2REFoiUsskHFkSrJy iHH2mL5fLMxhqoucl1hyhgxnTstn a3japs71nM29B03uSFcb DXFwHLSfSMJuTEXrzJfcer5udI4w Ii8+QIZsbJL6cKL8bL7oSSLzNnZ5 KYpvT986PrAhhEWuFcns k2jvk6zinAs5LhR1ITTiweArmNox RDV0q3XhHc62Z21tXWodXLKtCUDv DPDbUAInvQcmem6uoB6h Ii8+YCLldOC4eAH7eB5oEtAgWwX9 COhwY750JsKgnSGsUnyiZ24rZ9Jz dXA+AWYwUdo6GWYpdPox TF0ezTBaDEqsNo6mDOH6VeUdHsGv RAdiX4UqWRSwxkmwykmmeHF1ODIl CAEmsU05Vg1zoVmlORTp cNGCuZ6qfcodd5sycrjcZnFsSOYx CBp6XGw7COPelYtsKiYvRRK8IdG2 CDX4oMGnsN6noBocolrl wD7oL6SwQGNpqiuuNz57zT2uZlBi DfI4IUtxLjq+JWKKUFXFRNLNNH2U ALD7F4ErTky6FYIsvWtg KZ6noBShWVeyWm0bxTcduAfpDI4x QBZonhxnSRJuyC6aYPHxaFMiiJak PZ4nPEPvbujyl088WhNt BYP6KOJskBEcP7NhoS2hEdBuJMJi OOMnZ3YgxIKhGJtyM328JCliUaD0 VEBwvpYyT7QfRCLhwPjt OvM8g7L2Gc3xUy6vLG9mTTgcNY03 QF83gLRup3S0mXE2Z0JzTIDkukgj afcjtUM2JFGfPDBpuB51 zLEyDHcbEu7ko9V6g485IISiROWx jX55Bo8zxWbjKMPxdFPLoD0xpsun s8ivthiwGeBqQUZoUNx8 PGt5QKSptYpyKhFxSVQ1UmJ2GPD4 sDAavR6wvGygorynfV5kSpj+NTMg ZKPegmX2M6NtPip8TGGl rVezLI1brHWzCYkcYm9qjMhpzBfv ZD1pYOWszrguDVFunI8mQZRksNHh qXysOY7qUNRpsrfqv692 PyBoEFH8GUDwiFEmQ7UdpM9iGaCh VQErEHGkE8XjtHXiPWyyF841MJxa WiU7RHAxpoFvH1WyJCRe lTacOdJ2a9J2Yn6TTG4dkQA7Q5Id Xxs3VWEdcHseHO1ilGEpBDgaJk6c pCzcbNiyOJ1uEVYlzzjp ZRYnvN3aYTVdcYYxaVuoBD3dZMMk evtra322KuSeYFJ8DQXsrIGiC5Fp mT2fKrNvQLYxVOSqN4Dd nNWzRPjsT771FTcwNtA2WVJtvxSx M0KeQVYitCyqGsT9c4D4Oy6IqHJm PCBbQX70QD76QV76L1Zc PjwvdGFibGU+PHRhYmxlIHdpZHRo XDgxJWQaBkIgjFgjNQ5jNf4oSMFv DZHxgIwtnKGwSwQuu6wo NAOrJYexGJ2ccSrrH8ZmcMW0OSUb b1e3Qj97T10iG8HbePF+PGNvbCB3 aIH9yP3jVvBgZlG3PUex K227PkOqoTNeXfeuz1qgf8kajZo6 SoLpXWPsulJagIwyOMJ3h1JpNh51 N85uRSiiKLPrRTRzMRFc ZXAsfJsujw9sqM2yKc4+PGNvbCB3 yOE1gH9uBjYtJrL4PNvbH343FzOz mRZvCaazD27jJ1GicDM+ YVOlShc5PJLkxSynPQ3esYLsCFyb Cw3qYAZ7OiRnJjGeFNomO6IvJYSz hcnyljuicXY0FCNuUJEr kX01Uw4qsFilPa2oKSLxXXW0IISu eYDdI1OjhF4nCqObKODmDVTaI7On vSKsVRiuS795KOijJdZ8 AFOyphVeA1HbGQEkbZtjCbM0c9U3 Ky2DkAqqhRUvKT1fGlWyQDu5R6Pi Lve1UJIbsHhcCH1dsRKg CZzpIi4rnHnqeQcdMH8wDDVxwcvo n811FeWzh1tfZPRkbOUgMZrzXND9 N49nu2Y7CSYrYJZfLES9 aJP3xL5krNxvzppjiWHaqJewlrTq eEjyCOedVLkyQ839EIEhmMtkQnTF Mom1P5DzBii2BWMqtGfg YW5niCDaKDqqSw1mrInvsYyvWZ1m JAMgiitls568UlCde4ynMHMqtWUu UHaaWHE4Y49nj3Z0VAOx RGNjHIT5gMB4sH6maAcknsdsvULw rEvnowZbtPcjTZzlAZvsA052BCGf iWknKk2QUbg7W6DqFao4 IVCocJrnYA3pcAPwKMcpPc0jwZmi jLqnTB2oGURvkfjsg254MvVtc5ro YRMqoMUyZAzvEBK9B65m c6Y5JBUsYIPmRYV8hTB2lH6pyIft bjogbGVmdDsgdmVydGljYWwtYWxp A107QXEuhTnzOwRkzVDq OjwvdGQ+ID35kc90P1GoQcmaMjy2 HFKtJKB3bGZ4lW0zSGMbEQuru1F9 hSK8M3TeltEutl3ch0ly JTPqUFxrK82qr (more content not included)... Normal [facility] XR KNEE LT 3 VWSon 4 XR KNEE LT 3 VWS XR KNEE LT 3 VWS XR KNEE LT 3 VWS CLINICAL HISTORY: Pain for 5 months COMPARISON: None. FINDINGS: 3 views are obtained. Soft tissues: Soft tissue fullness in the suprapatellar bursa suggesting small effusion. Osseous structures: No acute fracture. No destructive osseous lesion. Joints: No dislocation or malalignment. Joint space narrowing in the medial weightbearing compartment and mild bony spurring in the articular surface of the patella. IMPRESSION: * No acute fracture or malalignment. * Mild degenerative arthritis of the left knee mainly in the medial weightbearing compartment with small suprapatellar effusion Finalized by Tamika Joseph MD on 01/31/2024 6:38 PM Normal [facility] Consent for Treatmenton 01-17 Consent for Treatment [id number]#[id number] Normal [facility] Heart and Vascular Office/Cl inic Noteon 01-30-2024 Heart and Vascular Office/Clinic Note Chief Complaint 6 month f/u History of Present Illness Patient is a 53-year-old female with past medical history of hypertension, hyper lipidemia, and SVT. Patient comes in for 6-month follow-up today At last visit, patient saw Dr. Solis at which time he continued her on Coreg and diltiazem for SVT and cleared her for needed surgery. Patient reports she has been doing pretty well since last visit. She does complain of a occasional pinching pain in her anterior chest that only last for few seconds and only occurs a couple times a month. She is usually resting or not active when this occurs and does not stop her from any activities she is doing. Normal coronary arteries in 2020 I do not think this pinching requires any further testing Patient has chronic shortness of breath. But she does have COPD. She reports shortness of breath has not changed or worsened anytime recently. Patient has history of SVT and heart racing. She reports that she has not had any issues with palpitations or heart racing since last visit. Compliant with carvedilol 25 mg twice daily and Cardizem ER 120mg daily. Patient denies dizziness/lightheadedness, and swelling in lower legs. Review of Systems ROS - Provider Constitutional: no fever, no chills, no sweats, no weakness Respiratory: yes shortness of breath, no cough Cardiovascular: no chest pain Neuro: no dizziness. no loss of consciousness Physical Exam Vitals & Measurements BP: 124/68 HT: 64 in HT: 163 cm WT: 74.6 kg WT: 164.12 lb BMI: 28.08 General: alert, no acute distress Cardiovascular: regular rate and rhythm, no murmur normal peripheral perfusion Respiratory: Lungs CTAB, respirations non labored Extremities: no edema left lower extremity. no edema right lower extremity Neurological: oriented x 4, LOC appropriate for age, speech normal Skin: Warm, dry, intact- no rash or concerning lesions Cardiac Diagnostics Event monitor from 06/01/2021 with the following results: CONCLUSIONS: Essentially [...] patient tolerated the procedure well. No complications. (06/07/2021 14:15 EDT Echo Transthoracic Complete) SUMMARY/CONCLUSION: 1. Normal left ventricle and right ventricle. 2. Borderline impaired diastolic relaxation. 3. No significant valve disease. 4. Normal estimated pulmonary artery pressure. [1] [facility] with Dr. Beltran on 03/03/2020: CONCLUSIONS: 1. Essentially normal coronary arteriograms. 2. Noncardiac chest pain. Assessment/Plan Patient reports that she may need surgical clearance in the near future for possible surgery she has coming up. Patient was cleared by Dr. Solis at last visit and again would be cleared at this time due to not much change in symptoms and it normal coronary arteries in 2020 when last checked. 1. SVT (supraventricular tachycardia) (I47.1: Supraventricular tachycardia) Patient has history of SVT. She is currently well-controlled on carvedilol 25 mg twice daily and diltiazem 120 mg daily. Has not had any episodes in quite some time and last event monitor did not show any concerning rhythms. 2. Hypertension (I10: Essential (primary) hypertension) Blood pressure well-controlled in the office today. Patient is taking medicines listed #1 and no additional medicines for blood pressure can. Continue current medications 3. Hyperlipidemia (E78.5: Hyperlipidemia, unspecified) History of HLD patient is currently taking atorvastatin 80 mg daily. Continue current med Follow-up in [address] Davalos Portions of this record may have been created with voice recognition artificial intelligence software, specifically [employer] and or [employer]. Substitutions may have occurred due to the inherent limitations of voice recognition and artificial intelligence software. Follow-up No qualifying data available Problem List/Past [...] Menopause Mixed incontinence urge and stress Nausea (more content not included)... Normal [facility] Comment on above: Result Comment: Elec tronically Signed By: Nella NORRIS, En Jerome\.br\Date and Time Signed: 01/30/24 14:40 EDT Physician Orderon 01-30-2024 Physician Order [id number]#[id number] Normal [facility] MR ELBOW LT WO CONTon 2023 MR ELBOW LT WO CONT MR ELBOW LT WO CONT History: Pain. Lesion of the ulnar nerve. Pain. Numbness tingling prior ulnar nerve release MRI Left Elbow Comparison: None Technique: Multiplaner/multisequence images were obtained without contrast. Findings: No abnormal marrow edema is appreciated. There is no evidence of fracture, healing fracture, or AVN. No elbow joint effusion is appreciated. The triceps tendon is intact. The biceps tendon is intact. The brachialis tendon is intact. Susceptibility artifact is appreciated indicating prior surgery. No pathologic edema in the ulnar nerve is noted however again the artifact does somewhat affected local evaluation. If concern persists consider follow-up ultrasound and/or EMG skeletal muscles unremarkable. No edema is appreciated. No bursal fluid or evidence of bursitis. Collateral ligaments appear intact. Common flexor and extensor tendons are intact. Impression: * No acute process is seen. Postsurgical changes are noted Finalized by Kaylynn Muir MD on 01/27/2024 11:30 AM Normal [facility] CT ABDOMEN AND PELVIS W CONT on 01-24-2024 CT ABDOMEN AND PELVIS W CONT CT ABDOMEN AND PELVIS W CONT STUDY: ABDOMEN AND PELVIS CT WITH CONTRAST CLINICAL HISTORY: Hiatal hernia. Diverticulitis. Abdominal pain. Lymphadenopathy COMPARISON: 10/07/2018 TECHNIQUE: CT abdomen and pelvis was performed utilizing 5 mm axial reconstructions following the uneventful administration of 100 cc Omnipaque 300 nonionic intravenous contrast. Coronal and sagittal reformatted images as well as delayed excretory phase images were obtained and reviewed. Automated exposure control was utilized. FINDINGS: Abdomen: No pleural or pericardial effusions lung bases. There is stable bilateral lower lobe paraseptal emphysematous changes or bones. Gallbladder surgically absent. The liver, adrenal glands, pancreas and spleen appear to be stable. There is fatty infiltration of the uncinate process of the pancreas. Small bowel is nondilated. No renal collecting system dilatation. No enlarged mesenteric or retroperitoneal lymph nodes. Pelvis: No free pelvic fluid. No enlarged pelvic lymph nodes. Urinary bladder is grossly unremarkable. Multiple colonic diverticula. No vertebral body height loss. IMPRESSION: 1. No evidence of acute abdominal or pelvic processes identified. 2. No abdominal or pelvic lymph node enlargement. All CT scans at this facility use dose modulation, iterative reconstruction, and/or weight based dosing when appropriate to reduce radiation dose to as low as reasonably achievable. Finalized by Karlos Herman MD on 01/24/2024 6:29 AM Normal [facility] CREATININEon 01-20-2024 Creatinine [Mass/Vol] 0.94 mg/dL Normal 0.40-1.00 [facility] Comment on above: Result Comment: METH OD TRACEABLE TO IDMS STANDARD Performed By: #### C RT #### [facility] ([id number]) [address], [address] [place] [address] GFR/1.73 sq M.predicted among non-blacks MDRD (S/P/Bld) [Vol rate/Area] 73 mL/min/{1.73_m2} Normal >59 [facility] Comment on above: Result Comment: Reported eGFR is based on the CKD-EPI 2020 equation that does not use a race coefficient. Performed By: #### C RT #### [facility] ([id number]) [address], [address] [place] [address] Consent for Treatmenton 12-18 Consent for Treatment [id number]#[id number] Normal [facility] Consultation Noteon 01-15-20 Consultation Note Patient: JESSIE HERRERA MRN: [id number] Age: 53 years Sex: Female : 1970 Associated Diagnoses: None Author: Cady Alva PA-C Subjective Chief complaint 01/15/2024 8:16 EDT low back pain . Patient is a 53-year-old female with a past medical history significant for lumbar stenosis, lumbar neuritis, neck pain, cervical neuritis and fibromyalgia. In regards to her lumbar stenosis and lumbar neuritis she underwent previous injection that did not help. In fact, she has an appointment with a spine surgeon?Dr. Thomas her next month. She is going to get his opinion as she continues to have lower back pain with bilateral radiating leg pain. In regards to her neck pain and cervical neuritis she was recommended to start physical therapy. She did not because her car was broken. She is planning to start here in the near future once her car is fixed. At this time, she is here today to once again discussed medications. She has lower back pain with bilateral leg pain and neck pain with arm pain that she rates a 9/10. In regards to medications we discussed some other potential medication options as she is allergic to amitriptyline, codeine, Cymbalta, methadone, Mobic, gabapentin, Lyrica, Topamax, Toradol, Trileptal, amitriptyline, Effexor, and a multitude of medications that we try to utilize to help with pain. We discussed potential medication options and we had a long discussion about the medications and what we can and cannot offer to her and why. Health Status Allergies: Allergic Reactions (Selected) Moderate [...] Robaxin Unknown Current medications: (Selected) Prescriptions Prescribed Butrans 5 mcg/hr transdermal film, extended release: 1 patch(es), TransDermal, qWeek for 4 week(s), 4 patch(es), Refill(s) 0, [facility], 163, cm, 01/15/24 8:23:00 EDT, Height/Length Dosing, 75.4, kg, 01/15/24 8:23:00 EDT, Weight Dosing Imodium A-D 2 mg oral tablet: See Instructions, PRN Diarrhea, 2 mg Oral BID and 2mg after each loose stool, # 120 tab(s), Refills(s) 6, Pharmacy: [facility], 162, cm, 03/30/20 10:05:00 EDT, Height/Length Dosing, 74.2, kg, 03/30/20 10:05:00 EDT, Weight Dosing carvedilol 25 mg Tab: 25 mg = 1 tab(s), Oral, BID, # 180 tab(s), Refills(s) 3, Pharmacy: [facility], 163, cm, 07/25/23 10:41:00 EST, Height/Length Dosing, 80.8, kg, 07/25/23 10:47:00 EST, Weight Dosing diltiazem CD 120 mg/24 hours Cap-ER: 120 mg = 1 cap(s), Oral, Daily, # 30 cap(s), Refills(s) 5, Pharmacy: [facility], 163, cm, 01/01/24 11:13:00 EDT, Height/Length Dosing, 75.6, kg, 12/31/23 13:01:00 EDT, Weight Dosing Documented Medications Documented Abilify: [...] = 1 tab(s), Oral, Daily, Refills(s) 0, Proph (more content not included)... Normal [facility] Comment on above: Result Comment: Elec tronically Signed By: Artie NORRIS, Cady\.br\Date and Time Signed: 01/15/24 08:43 EDT Office/Clinic Note-Physician on 01-15-2024 Office/Clinic Note-Physician [id number]#[id number] [facility] Patient Correspondenceon Patient Correspondence [id number]#1.00TIFF [facility] Patient Correspondence [id number]#1.00TIFF [facility] Patient History Officeon Patient History Office [id number]#[id number] [facility] Interdisciplinary Note - Soc ial Workeron 01-06-2024 Interdisciplinary Note - Heel Sorter Consult for positive depression screen received. SW made a tc to patient and left a message with contact information for patient to call back. SW will remain available. [facility] Consent for Treatmenton 12-17 Consent for Treatment [id number]#[id number] [facility] Consultation Noteon 01-01-20 Consultation Note Patient: JESSIE [...] [facility] [...] stool, # 120 tab(s), Refills(s) 6, Pharmacy: [id number], 162, cm, 03/30/20 10:05:00 EDT, Height/Length Dosing, 74.2, kg, 03/30/20 10:05:00 EDT, Weight Dosing carvedilol 25 mg Tab: 25 mg = 1 tab(s), Oral, BID, # 180 tab(s), Refills(s) 3, Pharmacy: [id number], 163, cm, 07/25/23 10:41:00 EST, Height/Length Dosing, 80.8, kg, 07/25/23 10:47:00 EST, Weight Dosing diltiazem CD 120 mg/24 hours Cap-ER: 120 mg = 1 cap(s), Oral, Daily, # 30 cap(s), Refills(s) 5, Pharmacy: [id number], 163, cm, 07/05/23 15:45:00 EST, Height/Length [...] Refills(s) 0 (more content not included)... Normal [facility] Comment on above: Result Comment: Elec tronically Signed By: Artie NORRIS, Cady\.br\Date and Time Signed: 01/01/24 11:24 EDT Lab Reportson 01-01-2024 Lab Reports [id number]#1.00TIFF [facility] [place] Office/Clinic Note-Physician on 01-01-2024 Office/Clinic Note-Physician [id number]#1.00TIFF [facility] [place] Orders Officeon 01-01-2024 Orders Office [id number]#1.00TIFF [facility] [place] Patient Correspondenceon Patient Correspondence [id number]#1.00TIFF [facility] [place] Patient Correspondence [id number]#1.00TIFF [facility] [place] Patient History Officeon Patient History Office [id number]#1.00TIFF [facility] [place] RAD - CT Reporton 01-01-2024 RAD - CT Report [id number]#1.00TIFF [facility] [place] Ambulatory Visit Summaryon 0 12-31-2023 Ambulatory Visit Summary KETURAH HERRERA :1970 Visit Date:12/31/2023 Ambulatory Visit Instructions Your [...] Colonoscopy (01/17/2023), Hammer toe (11/21/2022), Metatarsal (11/21/2022), Esophagogastroduodenoscopy (03/29/2022), Peroneal tendon (11/08/2021), Esophagogastroduodenoscopy (06/26/2021), Urodynamics (05/16/2021), Colonoscopy (03/14/2020), Catheterization of [...] surgery, Carpal tunnel release, Cholecystectomy, Colonoscopy, Colonoscopy, Esophagogastroduodenoscopy, Esophagogastroduodenoscopy, ESWL of kidney, Excision of ganglion cyst, [...] to do next Scheduled Follow-Up Appointments Saturday 11:00 AM EDT With: Cady Alva PA-C Where: [facility] Saturday 1:00 PM EDT With: POLLY MARIANO PA-C Where: [facility] Patient Educationon 12-31-19 Patient Education Urology Urinary Incontinence Urinary [...] stimulation). ? For women, using a medical collections representative to prevent urine leaks. This is a [...] urine. ? (more content not included)... Normal [facility] Urology Office/Clinic Noteon 12-31-2023 Urology Office/Clinic [...] volume 2,525mL. CT AP wo con 10/20/22 [facility] - A few [...] or hydro. Follow-up With When Contact Information POLLY MARIANO PA-C, URL [address] [facility] [place] [address] Additional Instructions: 1 year Patient Education Urinary Incontinence Documentation recorded by the shailesh Bangura accurately reflects the services(s) I performed and decisions made by me. Authenticated by Polly Mariano PA-C on 12/31/2023 13:21:05. Violet Guadarrama, personally scribed for Ileana Mariano PA-C on [...] (01/17/2023), Víctor (more content not included)... Normal [facility] Comment on above: Result Comment: Elec tronically Signed By: POLLY MARIANO PA-C\.br\Date and Time Signed: 12/31/23 13:21 EDT\.br\Electronically Co-Signed By: Violet Bangura\.br\Date and Time Co-Signed: 12/31/23 13:14 EDT CHEMISTRYOrdered By: Jordan ROP User on 12-11-2023 POC Device SN [id number] Invalid Interpretation Code [facility] POC Subsection POC User ID [id number] 1 Invalid Interpretation Code [facility] POC Subsection POC Username FREDIS WEBSTER Invalid Interpretation Code [facility] POC Subsection Capillary Glucose POCOrdered By: Jordan NAVASUser on 12-11-2023 Glucose [Mass/Vol] 154 mg/dL High 55-99 [facility] P OC Subsection Comment on above: Performed By: #### 2 [id number] ####[facility] [address] [place] [address] Consent for Procedure/Surger yon 12-11-2023 Consent for Procedure/Surgery [id number]#1.00TIFF Normal [facility] Consent for Treatmenton 11-18 Consent for Treatment [id number]#1.00TIFF Normal [facility] Discharge Instructionson Discharge Instructions [id number]#1.00TIFF Normal [facility] IntraOperative Documentson 0 12-11-2023 IntraOperative Documents [id number]#1.00TIFF Normal [facility] IntraOperative Documents [id number]#1.00TIFF Normal [facility] Main OR Intraoperative Recor don 12-11-2023 Main OR Intraoperative Record IntraOp Document Type FT Summary Primary Physician: Andrew Eid DO Finalized Date/Time: 12/11/23 09:27:33 Pt. Name: KETURAH HERRERA Vasquez/Sex: 1970 Female Med Rec #: [id number] Physician: Andrew Eid DO Financial #: [id number] Pt. Type: P Room/Bed: / Admit/Disch: 12/11/23 [...] Katherine Jerome Role Performed Surgeon - Primary Commodity Buyer - Primary Scrub - Primary Time In 12/11/23 09:21:00 12/11/23 09:21:00 12/11/23 09:21:00 Time Out 12/11/23 09:28:00 12/11/23 09:28:00 12/11/23 09:28:00 Procedure LUMBAR EPIDURAL STEROID LUMBAR EPIDURAL STEROID LUMBAR EPIDURAL STEROID INJECTION(.) INJECTION(.) INJECTION(.) Comments Last Modified By: Juma LAZO, Teressa Dennison RN, Teressa Dennison RN, Teressa Grewal 12/11/23 09:27:22 12/11/23 09:27:22 12/11/23 09:27:22 Entry 4 Case Attendee Gen Lazo Role Performed Electronic Tech Time In 12/11/23 09:21:00 Time Out 12/11/23 [...] Teressa Dennison RN, Given Participants Robert LAZO, Katherine Jerome, Andrew Eid DO, Gen Lazo Time Out Complete 12/11/23 09:22:00 [...] and tissue Entry 1 Skin Integrity Intact, [place], Warm, and Skin Abnormality No Dry Outcomes [...] Juma Moreira (more content not included)... Normal [facility] Main OR Preoperative Recordo n 12-11-2023 Main OR Preoperative Record Holding Area Document Type FTPM Summary Primary Physician: Andrew Eid DO Finalized Date/Time: 12/11/23 08:39:56 Pt. Name: KETURAH HERRERA Vasquez/Sex: 1970 Female Med Rec #: [id number] Physician: Andrew Eid DO Financial #: [id number] Pt. Type: P Room/Bed: / Admit/Disch: 12/11/23 [...] Quintana RN Document Signatures Signed By: Odette Quintana RN 12/11/23 08:39 Normal [facility] Patient Correspondenceon Patient Correspondence [id number]#1.00TIFF Normal [facility] Orders Officeon 11-22-2023 Orders Office [id number]#1.00TIFF [facility] Insurance Correspondence Off iceon 11-21-2023 Insurance Correspondence Office [id number]#2.00TIFF Normal [facility] Outside Records Officeon Outside Records Office [id number]#1.00TIFF Normal [facility] Consent for Treatmenton 10-18 Consent for Treatment [id number]#1.00TIFF [facility] Consultation Noteon 11-06-19 Consultation Note Patient: JESSIE [...] options. [facility] with out improvement. In fact, she [...] MVP (mitral valve prolapse) / SNOMED CT 1930889940 / Confirmed Bipolar disorder / SNOMED CT 63392268 / Confirmed COPD (chronic obstructive pulmonary disease) / SNOMED CT 08326109 / Confirmed Vertigo / SNOMED CT 6674132847 / Confirmed Chronic pain / SNOMED CT 020114714 / Confirmed Osteoarthritis / SNOMED CT 8566115909 / Confirmed Hyperlipidemia / SNOMED CT 28110583 / Confirmed Chronic migraine / SNOMED CT 26839646 / Confirmed Sleep apnea / SNOMED CT 926813335 / Confirmed pt uses CPAP does not use cpap any longer Gastritis / SNOMED CT 9911431 / Confirmed Irritable bowel syndrome / SNOMED CT 67016174 / Confirmed Hypertension / SNOMED CT 4857681477 / Confirmed Dizziness / SNOMED CT 3147206805 / Confirmed Tarsal tunnel syndrome of left side / SNOMED CT 46650859 / Confirmed Diabetes / SNOMED CT 474692562 / Confirmed Personality disorder / SNOMED CT 99843094 / Confirmed TMJ arthralgia / SNOMED CT 421397951 / Confirmed Smoker / SNOMED CT [id number]-[id number]-JJN7 O0746QK8 / Confirmed Added secondary to documentation in Social History. GERD (gastroesophageal reflux disease) / SNOMED CT 989764037 / Confirmed History of kidney stones / SNOMED CT 3423387970 / Confirmed Mixed incontinence urge and stress / SNOMED CT 02704050 / Confirmed Urinary frequency / SNOMED CT 893864112 / Confirmed Other urethral stricture, female / SNOMED CT 522131504 / Confirmed Incomplete emptying of bladder / SNOMED CT 829255638 / Confirmed Feeling of incomplete bladder emptying / SNOMED CT 881414599 / Confirmed Urge incontinence / SNOMED CT 087157707 / Confirmed Dysuria / SNOMED CT 25797877 / Confirmed Change in bowel habits / SNOMED CT 15401397 (more content not included)... [facility] Comment on above: Result Comment: Elec tronically Signed By: Artie NORRIS, Cady\.br\Date and Time Signed: 11/06/23 10:24 EDT\.br\Electronically Co-Signed By: Andrew Eid DO.rosi\Date and Time Co-Signed: 11/06/23 15:19 EDT HIPAA Forms Officeon 024 HIPAA Forms Office [id number]#1.00TIFF [facility] Legal Correspondence Officeo n 11-06-2023 Legal Correspondence Office [id number]#1.00TIFF Normal [facility] Legal Correspondence Office [id number]#1.00TIFF Normal [facility] Office/Clinic Note-Physician on 11-06-2023 Office/Clinic Note-Physician [id number]#1.00TIFF Normal [facility] Patient Correspondenceon Patient Correspondence [id number]#1.00TIFF Normal [facility] Patient Correspondence [id number]#1.00TIFF Normal [facility] Patient Correspondence [id number]#1.00TIFF [facility] Patient Correspondence [id number]#1.00TIFF Normal [facility] Patient Correspondence [id number]#1.00TIFF Normal [facility] Patient History Officeon Patient History Office [id number]#1.00TIFF [facility] Patient History Office [id number]#1.00TIFF Normal [facility] Physician Orderon 11-06-2023 Physician Order [id number]#1.00TIFF [facility] Radiology Outside Office Guard Supervisor yon 11-06-2023 Radiology Outside Office Copy [id number]#1.00TIFF [facility] Outside Records Officeon Outside Records Office [id number]#1.00TIFF [facility] Referrals Officeon Referrals Office [id number]#1.00TIFF [facility] Event Monitoron 10-01-2023 Event Monitor [id number]#1.00TIFF [facility] Formson 10-01-2023 Forms [id number]#1.00TIFF [facility] Screenson 09-18-2023 Screens [id number]#1.00TIFF Normal [facility] Ambulatory Visit Summaryon 0 09-17-2023 Ambulatory [...] Colonoscopy (01/17/2023), Hammer toe (11/21/2022), Metatarsal (11/21/2022), Esophagogastroduodenoscopy (03/29/2022), Peroneal tendon (11/08/2021), Esophagogastroduodenoscopy (06/26/2021), Urodynamics (05/16/2021), Colonoscopy (03/14/2020), Catheterization of [...] surgery, Carpal tunnel release, Cholecystectomy, Colonoscopy, Colonoscopy, Esophagogastroduodenoscopy, Esophagogastroduodenoscopy, ESWL of kidney, Excision of ganglion cyst, [...] POLLY MARIANO PA-C Where: [facility] Renetta Santiago [facility] Patient Educationon 09-17-19 24 Patient Education [...] these instructions at home: Medicines ? Take csfx-ais-tcxoors and prescription medicines only as told by [...] the blood stops without treatment. ? Take jnhd-wwj-nlnpchs and prescription medicines only as told by your health care provider. ? Drink enough fluid to keep your urine pale yellow. This information is not intended to replace advice given to you by your health care provider. Make sure you discuss any questions you have with your health care provider. Document Revised: 04/05/2021 Document Reviewed: 04/05/2021 [employer] Patient Education ? 2022 Packet Design. Normal [facility] Retail - Clinical Noteon Retail - Clinical Note [id number]#1.00TIFF [facility] Retail - Clinical Note [id number]#1.00TIFF [facility] Urology Office/Clinic Noteon 09-17-2023 Urology Office/Clinic Note [...] to her (unsure if refill ran out?) [facility] ER 10/20/22 CC: [...] 6.2. -Begin VESIcare. Rx sent to [facility]. f/u 3 mos to ensure working well. -Supply order provided for pads/incontinence supplies Ordered: E&M of Est. Patient Moderate 30-39 Min 50796 Urnls Dip Stick Auto w/o Microscopy POC 61839 2. Fecal incontinence (R15.9: Full incontinence of feces) Hx of IBS. Continues having complications with diarrhea and fecal incontinence follows with PCP used to follow with Dr. Bela CAZARES but he retired Ordered: E&M of Est. Patient Moderate 30-39 Min 65231 3. OAB (overactive bladder) (N32.81: Overactive bladder) see #1 Ordered: E&M of Est. Patient Moderate 30-39 Min 60835 4. Gross hematuria (R31.0: Gross hematuria) S/p [...] E&M of Est. Patient Moderate 30-39 Min 27250 5. Kidney stones (N20.0: Calculus of kidney) S/p lithotripsy 06/06/15. 24hr urine 10/25/19 done for unrelated reason (ordered by external provider): Total volume 2,525mL. CT AP wo con 10/20/22 [facility] [facility] - A few [...] E&M of Est. Patient Moderate 30-39 Min 58935 Orders: solifenacin, 10 mg = 1 tab(s), Oral, Daily, # 90 tab(s), Refills(s) 3, Pharmacy: [facility], 163, cm, 09/17/23 8:25:00 EST, Height/Length Dosing, 81, kg, 09/17/23 8:25:00 EST, Weight Dosing Follow-up With When Contact Information POLLY MARIANO PA-C, URL [address] [place] [address] [phone] Additional Instructions: 3 mos (restart med) Patient Education Hematuria, Adult Documentation record (more content not included)... Normal [facility] Comment on above: Result Comment: Elec tronically Signed By: POLLY MARIANO PA-C\.br\Date and Time Signed: 09/17/23 09:07 EST\.br\Electronically Co-Signed By: Deisy Simon\.br\Date and Time Co-Signed: 09/17/23 09:00 EST XR SPINE LUMBAR 2 OR 3 VWSon 08-05-2023 XR SPINE LUMBAR 2 OR 3 VWS XR SPINE LUMBAR 2 OR 3 VWS HISTORY: Pain. TECHNIQUE: Frontal lateral and spot views of the lumbar spine were obtained. . COMPARISON: 01/05/1714. FINDINGS: The vertebral body heights and disc spaces are well-maintained. There is no evidence for an acute osseous abnormality. No significant degenerative change identified. Minimal endplate osteophyte formation is seen.. IMPRESSION: Normal lumbar spine. Finalized by Mamie Dodson MD on 08/05/2023 5:33 PM Normal [facility] Consent for Treatmenton Consent for Treatment [id number]#1.00TIFF Normal [facility] Heart and Vascular Office/Cl in Noteon 07-25-2023 Heart and Vascular Office/Clinic Note [...] palpitations and chest pain and went to [facility] for evaluation. He then saw Cady on [...] disease) Hemorrhoids (more content not included)... Normal [facility] Comment on above: Result Comment: Elec tronically Signed By: WILL WALSH, Elliott Grewal\.br\Date and Time Signed: 07/25/23 10:57 EST Physician Orderon 07-25-2023 Physician Order [id number]#1.00TIFF Normal [facility] Heart and Vascular Office/Cl inic Noteon [...] cardiac clearance. Apparently she had gone to [facility] ER for SVT. She was ordered an event monitor and echocardiogram. Insurance has denied her echocardiogram. She had essentially normal echo in 2020. She had a cath with Dr. Beltran in 2019 with normal coronary arteries. She had her foot surgery without event. Here today now for another [facility] ER visit. She had chest pain and [...] 4. Normal estimated pulmonary artery pressure. [2] [facility] 03/03/2020 CONCLUSIONS: 1. Essentially normal coronary arteriograms. 2. Noncardiac chest pain. [3] Assessment/Plan 1. Palpitations (R00.2: Palpitations) Will add diltiazem 120 mg daily to her carvedilol 25 mg twice daily. We will request records from [facility]-need to review EKG that had questionable atrial flutter if this is the case she would need to be anticoagulated. She will follow-up with Dr. Solis as previously scheduled to review results of event monitor. Portions of this record may have been created with voice recognition artificial intelligence software, specifically [employer], [employer] and or Digital [employer]. Substitutions may have occurred due to the inherent limitations of voice recognition and artificial intelligence software. Follow-up With When Contact Information WILL WALSH, [place] [address] [phone] Additional Instructions: Follow up post event Problem [...] Colonoscopy (01/17/2023), Hammer toe (11/21/2022), Metatarsal (11/21/2022), Esophagogastroduodenoscopy (03/29/2022), Peroneal tendon (11/08/2021), Esophagogastroduodenoscopy (06/26/2021), Urodynamics (05/16/2021), Colonoscopy (03/14/2020), Catheterization of left heart (03/03/2020), Excision of Downey's (more content not included)... [facility] Comment on above: Result Comment: Elec tronically Signed By: FIFI IZAGUIRRE, Cady Amato\.br\Date and Time Signed: 07/18/23 14:27 EST Outside Recordson 07-08-2023 Outside Records [id number]#1.00TIFF [facility] Physician Orderon 07-05-2023 Physician Order [id number]#1.00TIFF [facility] Consent for Treatmenton 05-20 Consent for Treatment [id number]#1.00TIFF [facility] Retail - Clinical Noteon Retail - Clinical Note [id number]#1.00TIFF [facility] Insurance Correspondenceon 1 Insurance Correspondence [id number]#1.00TIFF Normal [facility] Outside Recordson 05-24-2023 Outside Records [id number]#1.00TIFF Normal [facility] Outside Records [id number]#1.00TIFF Normal [facility] Heart and Vascular Office/Cl inic Noteon 05-21-2023 Heart and Vascular Office/Clinic Note Chief Complaint [facility] ED F/U- Tachycardia History of Present Illness [...] for foot surgery. Unfortunately, she presented to [facility] ER on 05/19/2023 with complaints of palpitations. [...] intact- no rash or concerning lesions Procedure [facility]- Dr Fragoso 03/03/20 CONCLUSIONS: 1. Essentially normal coronary arteriograms. 2. Noncardiac chest pain. [1] Cardiac Diagnostics (06/07/2021 14:15 EDT Echo Transthoracic Complete) SUMMARY/CONCLUSION: 1. Normal left ventricle and right ventricle. 2. Borderline impaired diastolic relaxation. 3. No significant valve disease. 4. Normal estimated pulmonary artery pressure. [2] [1] Assessment/Plan 1. Sinus tachycardia (R00.0: Tachycardia, unspecified) In [facility] ER for palpitation, noted to be sinus [...] with voice recognition artificial intelligence software, specifically [employer], [employer] and or [employer]. Substitutions may have occurred due to the inherent limitations of voice recognition and artificial intelligence software. Follow-up With When Contact Information WILL WALSH, Elliott Grewal Within [address] [place] [phone]- [phone] Additional Instructions: Problem List/Past Medical History Ongoing [...] Colonoscopy (01/17/2023), Hammer toe (11/21/2022), Metatarsal (11/21/2022), Esophagogastroduodenoscopy (03/29/2022), Peroneal tendon (11/08/2021), Esophagogastroduodenoscopy (06/26/2021), Urodynamics (05/16/2021), Colonoscopy (03/14/2020), Catheter (more content not included)... [facility] Comment on above: Result Comment: Elec tronically Signed By: Cady CALIX CNP\.br\Date and Time Signed: 05/21/23 12:56 EDT Consent for Treatmenton Consent for Treatment [id number]#1.00CD:127 [facility] Physician Orderon 05-20-2023 Physician Order [id number]#1.00CD:127 [facility] Physician Orderon 05-17-2023 Physician Order Confirmed with Ana Rosa olivas @ [facility] that fax was received [id number]#1.00CD:127 [facility] Consent for Treatmenton 04-20 Consent for Treatment [id number]#1.00CD:127 [facility] Heart and Vascular Office/Cl inic Noteon 05-16-2023 [...] Colonoscopy (01/17/2023), Hammer toe (11/21/2022), Metatarsal (11/21/2022), Esophagogastroduodenoscopy (03/29/2022), Peroneal tendon (11/08/2021), Esophagogastroduodenoscopy ( (more content not included)... Normal [facility] Comment on above: Result Comment: Elec tronically Signed By: WILL WALSH, Elliott Grewal\.br\Date and Time Signed: 05/16/23 10:46 EDT Physician Orderon 05-16-2023 Physician Order [id number]#1.00CD:127 Normal [facility] XR KNEE LT 4V or >on [...] by: LILIANA NDIAYE Date: 2022-11-29 16:[address] [facility] CHEMISTRYOrdered By: Lab ROP User on 11-21-2022 Glucose [Mass/Vol] 91 mg/dL Normal 55 - 99 mg/dL [facility] POC Subsection Comment on above: Result Comment: Dahlia sneha Meter POC Device SN [id number] Invalid Interpretation Code [facility] POC Subsection POC User ID [id number] Invalid Interpretation Code [facility] POC Subsection POC Username BILLY HOGUE Invalid Interpretation Code [facility] POC Subsection CHEMISTRYOrdered By: SYSTEM SYSTEM on 10-20-2022 Anion gap [Moles/Vol] 13 mmol/L Normal 6 - 16 mEq/L [facility] Remisol Calcium [Mass/Vol] 9.5 mg/dL Normal 8.9 - 11. 1 mg/dL [facility] Remisol Chloride [Moles/Vol] 99 mmol/L Low 101 - 111 mmol/L [facility] Remisol CO2 [Moles/Vol] 26 mmol/L Normal 21 - 31 mmol/L [facility] Remisol Creatinine [Mass/Vol] 1.1 mg/dL Normal 0.5 - 1.3 mg/dL [facility] Remisol GFR/1.73 sq M.predicted among blacks MDRD (S/P/Bld) [Vol rate/Area] mL/min/1.73 m2 Normal >=59mL/min /1.73 m2 [facility] Chem S GFR/1.73 sq M.predicted among non-blacks MDRD (S/P/Bld) [Vol rate/Area] 52 mL/min/1.73 m2 Low >=59mL/min /1.73 m2 [facility] Chem S Glucose [Mass/Vol] 127 mg/dL Normal 55 - 199 mg/dL [facility] Remisol Potassium [Moles/Vol] 4.0 mmol/L Normal 3.5 - 5.3 mmol/L [facility] Remisol Sodium [Moles/Vol] 134 mmol/L Low 135 - 145 mmol/L [facility] Remisol Urea nitrogen [Mass/Vol] 7 mg/dL Normal 5 - 21 mg/dL [facility] Remisol Urea nitrogen/Creatinine [Mass ratio] 6 mg/mg Low 10 - 20 [facility] Remisol HEMATOLOGYOrdered By: SYSTEM SYSTEM on 10-20-2022 Basophils/100 WBC (Bld) 1.0 % Normal 0.0 - 2.0 % [facility] HemeAutoSS Basophils/Leukocyte s Auto (Bld) [Pure # fraction] 0.1 E9/L Normal 0.0 - 0.2 E9/L [facility] HemeAutoSS Eosinophils/100 WBC (Bld) 0.4 % Normal 0.0 - 8.0 % [facility] HemeAutoSS Eosinophils/Leukocy ellen Auto (Bld) [Pure # fraction] 0.0 E9/L Normal 0.0 - 0.5 E9/L [facility] HemeAutoSS Lymphocytes/100 WBC (Bld) 32.6 % Normal 14.0 - 50.0 % [facility] HemeAutoSS Lymphocytes/Leukocy ellen Auto (Bld) [Pure # fraction] 3.9 E9/L Normal 1.0 - 4.0 E9/L [facility] HemeAutoSS Monocytes/100 WBC (Bld) 4.8 % Normal 4.0 - 14.0 % [facility] HemeAutoSS Monocytes/Leukocyte s Auto (Bld) [Pure # fraction] 0.6 E9/L Normal 0.2 - 1.0 E9/L [facility] HemeAutoSS Neutrophils/100 WBC (Bld) 61.2 % Normal 36.0 - 75.0 % [facility] HemeAutoSS Neutrophils/Leukocy ellen Auto (Bld) [Pure # fraction] 7.4 E9/L [...] 4.6 E12/L Normal 4.3 - 5.9 E12/L [facility] HemeAutoSS WBC corrected for nucl RBC Auto (Bld) [#/Vol] 12.1 E9/L High 4.0 - 11.0 E9/L [facility] HemeAutoSS URINALYSISOrdered By: Osito Henderson on 10-20-2022 [...] AM) Normal Negative [facility] UA Auto SS Brinkley.plasma/Lith ium.RBC (Bld) [Mass ratio] 0-3 /HPF Normal 0-3/HPF [...] Desc Clean Catch (10/20/22 11:40 AM) Normal [facility] [place] UA Auto SS Urobilinogen Qn (U) 0.6157037 {Gareth'U}/dL Normal 0.0 - 1.0 EU/dL FT UA Auto SS WBC Auto Ql (U) 1+ *ABN* (10/20/22 11:40 AM) Invalid Interpretation Code Negative [facility] UA Auto SS WBC LM.HPF (Urine sed) [#/Area] 0-5 /HPF Normal 0-5/HPF [facility] [place] UA Auto SS [facility] 3D TAJ CA Don 09-10-2022 [facility]NO[facility] 3D TAJ CAD Patient: KETURAH HERRERA Exam Date: 09/10/2022 : 1970 Gender:F Ordering : DR FREDERICK MAHARAJ . Admission #: [id number] Family : Order #: [id number] CLICK HERE TO VIEW EXAM RADIOLOGY REPORT [...] ovarian cancer at age 60. LOCATION: [facility] BREAST COMPOSITION: Heterogeneously dense,which may obscure [...] M.D. on 09/10/2022 at 13:54 Normal [facility] US BREAST LEFT LIMITEDon US BREAST LEFT LIMITED Patient: KETURAH HERRERA Exam Date: 09/10/2022 : 1970 Gender:F Ordering : DR FREDERICK MAHARAJ . Admission #: [id number] Family : Order #: [id number] CLICK HERE TO VIEW EXAM RADIOLOGY REPORT [...] ovarian cancer at age 60. LOCATION: [facility] BREAST COMPOSITION: Heterogeneously dense,which may obscure [...] Roach M.D. on 09/10/2022 at 13:[address] [facility] XR DEXA BONE DENSITYon 08-06 XR DEXA [...] DELORES ROACH Date: 2022-08-06 14:11 Normal [facility] XR CHEST 2 Von 07-04-2022 XR [...] NICOLE ROJAS Date: 2022-07-04 14:11 Normal [facility] XR KNEE RT 4V or >on [...] NICOLE ROJAS Date: 2022-07-03 18:12 Normal [facility] CBC AUTO DIFFon 04-30-2022 BASO # 0.1 103/ul Normal 0.0-0.1 [facility] Comment on above: Performed By: #### C BC ####[facility] [address] [place] [address]Dr. Soo [place] Basophils/100 WBC (Bld) 0.7 % Normal 0.2-2.0 [facility] Comment on above: Performed By: #### C BC ####[facility] [address] [place] [address]Dr. Soo [place] EO # 0.1 103/ul Normal 0.0-0.7 [facility] Comment on above: Performed By: #### C BC ####[facility] [address] [place] [address]Dr. Soo [place] Eosinophils/100 WBC (Bld) 0.4 % Critically low 0.9-7.0 [facility] Comment on above: Performed By: #### C BC ####[facility] [address] [place] [address]Dr. Soo [place] Erythrocyte distribution width (RBC) [Ratio] 15.1 % Critically high 11.0-15.0 [facility] Comment on above: Performed By: #### C BC ####[facility] [address] [place] [address]Dr. Soo [place] Hematocrit (Bld) [Volume fraction] 43.4 % Normal 36.0-48.0 [facility] Comment on above: Performed By: #### C BC ####[facility] [address]ft[address] [place] [id number]. Soo [place] Hemoglobin (Bld) [Mass/Vol] 14.4 g/dL Normal 12.0-16.0 [facility] Comment on above: Performed By: #### C BC ####[facility] [address]xjjackbmw[address] [place] [id number]. Soo [place] IG # 0.06 10e3/ul Critically high 0.00-0.03 [facility] Comment on above: Performed By: #### C BC ####[facility] [address] [place] [id number]. Soo [place] IG % 0.4 % Normal 0.0-0.5 [facility] Comment on above: Performed By: #### C BC ####[facility] [address] [place] [address]Dr. Soo [place] LYMPH # 5.4 103/ul Critically high 1.2-3.[address] [facility] Comment on above: Performed By: #### C BC ####[facility] [address] [place] [address]Dr. Soo [place] Lymphocytes/100 WBC (Bld) 36.6 % Normal 20.5-60.0 [facility] Comment on above: Performed By: #### C BC ####[facility] [address] [place] [address]Dr. Soo [place] MANUAL DIFF REQ NO Normal [facility] Comment on above: Performed By: #### C BC ####[facility] [address] [place] [address]Dr. Soo [place] MCH (RBC) [Entitic mass] 29.4 pg Normal 26.7-34.0 [facility] Comment on above: Performed By: #### C BC ####[facility] [address] [place] [address]Dr. Soo [place] MCHC (RBC) [Mass/Vol] 33.2 g/dL Normal 29.9-35.2 [facility] Comment on above: Performed By: #### C BC ####[facility] [address] [place] [id number]. Soo [place] MCV (RBC) [Entitic vol] 88.6 fL Normal 81.0-99.0 [facility] Comment on above: Performed By: #### C BC ####[facility] Xkt[address]xsffqv4[address] [place] [id number]. Soo [place] MONO # 0.9 103/ul Critically high 0.3-0.[address] [facility] Comment on above: Performed By: #### C BC ####[facility] [address] [place], [place] [phone]. Soo [place] Monocytes/100 WBC (Bld) 6.4 % Normal 1.7-12.0 [facility] Comment on above: Performed By: #### C BC ####[facility] [address] [place] [address] [place], [place] [address]Dr. Soo [place] NEUT # 8.1 103/ul Critically high 1.4-6.[address] [facility] Comment on above: Performed By: #### C BC ####[facility] [address] [place] [address] [place], [place] [address]Dr. Soo [place] Neutrophils/100 WBC (Bld) 55.5 % Normal 43.0-75.0 [facility] Comment on above: Performed By: #### C BC ####[facility] Hq[address] [place] [address] [place], [place] [address]Dr. Soo [place] Platelet mean volume (Bld) [Entitic vol] 9.9 fL Normal 9.5-13.5 [facility] Comment on above: Performed By: #### C BC ####[facility] [address] [place] [id number]. Soo [place] PLT 326 103/ul Normal 150-450 [facility] Comment on above: Performed By: #### C BC ####[facility] [address] [place], [place] [phone]. Soo [place] RBC 4.90 106/ul Normal 4.20-5.40 [facility] Comment on above: Performed By: #### C BC ####[facility] [address] [place] [address]Dr. Soo [place] WBC 14.6 103/ul Critically high 4.0-11.0 [facility] Comment on above: Performed By: #### C BC ####[facility] [address] [place] [address]Dr. Soo [place] PROF CHEM 8 (BAS METB)on Anion gap [Moles/Vol] 12.9 mmol/L Normal [facility] Comment on above: Performed By: #### B MP ####[facility] [address] [place] [address] [place], [place] [address]Dr. Soo [place] Calcium [Mass/Vol] 9.5 mg/dL Normal 8.5-10.1 [facility] Comment on above: Performed By: #### B MP ####[facility] [address] [place] [address] [place], [place] [address]Dr. Soo [place] Chloride [Moles/Vol] 101 mmol/L Normal 98-107 [facility] Comment on above: Performed By: #### B MP ####[facility] [address] [place] [address] [place], [place] [address]Dr. Soo [place] CO2 [Moles/Vol] 26.6 mmol/L Normal 21.0-32.0 [facility] Comment on above: Performed By: #### B MP ####[facility] [address] [place] [address] [place], [place] [address]Dr. Soo [place] Creatinine [Mass/Vol] 1.11 mg/dL Critically high 0.55-1.02 [facility] Comment on above: Performed By: #### B MP ####[facility] [address]tf[address]qftr[address] [place] [address] [place], [place] [address]Dr. Soo [place] EGFR-AF MARSHALLESE >60 Normal >=60 [facility] Comment on above: Performed By: #### B MP ####[facility] [address] [place] [address] [place], [place] [address]Dr. Soo [place] EGFR-NON AF MARSHALLESE 52 mL/min/1.73m2 Critically low >=60 [facility] Comment on above: Performed By: #### B MP ####[facility] [address]prewo[address] [place] [phone]. Soo [place] Glucose [Mass/Vol] 145 mg/dL Critically high 74-106 [facility] Comment on above: Performed By: #### B MP ####[facility] [address]zbdt[address] [place] [id number]. Soo [place] Potassium [Moles/Vol] 3.5 mmol/L Normal 3.5-5.[address] [facility] Comment on above: Performed By: #### B MP ####[facility] [address]md[address]gfhh[address] [place] [id number]. Soo [place] Sodium [Moles/Vol] 137 mmol/L Normal 136-145 [facility] Comment on above: Performed By: #### B MP ####[facility] [address]rlj[address] [place] [id number]. Soo [place] Urea nitrogen [Mass/Vol] 2.0 mg/dL Critically low 7.0-18.[address] [facility] Comment on above: Performed By: #### B MP ####[facility] [address] [place] [id number]. Soo [place] Urea nitrogen/Creatinine [Mass ratio] 1.8 mg/mg Normal [facility] Comment on above: Performed By: #### B MP ####[facility] [address] [place] [id number]. Soo [place] TROPONIN, HIGH SENSITIVITYon 04-30-2022 HSTROP 5.1 pg/mL Normal 4.0-51.[address] [facility] Comment on above: Result Comment: CUT- OFF POINTS HAVE BEEN ESTABLISHED BASED ON THE FOURTH UNIVERSAL DEFINITIONS OF MYOCARDIAL INFARCTION. THE UPPER REFERENCE LIMIT (URL) OF TROPONIN, DEFINED THE 99TH PERCENTILE OF cTnI DISTRIBUTION IN A REFERENCE POPULATION, HAS BEEN CONFIRMED THE DECISION THRESHOLD FOR SD DIAGNOSIS. Performed By: #### H STROPN ####[facility] [address] [place] [address]Dr. Soo [place] HSTROP 4.6 pg/mL Normal 4.0-51.[address] [facility] Comment on above: Result Comment: CUT- OFF POINTS HAVE BEEN ESTABLISHED BASED ON THE FOURTH UNIVERSAL DEFINITIONS OF MYOCARDIAL INFARCTION. THE UPPER REFERENCE LIMIT (URL) OF TROPONIN, DEFINED THE 99TH PERCENTILE OF cTnI DISTRIBUTION IN A REFERENCE POPULATION, HAS BEEN CONFIRMED THE DECISION THRESHOLD FOR SD DIAGNOSIS. Performed By: #### H KRISTI ####[facility] [address] [place], [place] [address]InDanica [place] MRI LSPINE WO CONon 04-06-20 22 [...] by: MAMIE HERNANDEZ Date: 2022-04-06 18:[address] [facility] MRI KNEE RT WO CONon 022 MRI [...] by: MAMIE HERNANDEZ Date: 2022-03-28 11:[address] [facility] MRI SHOULDER RT WO CONon MRI SHOULDER [...] MAMIE HERNANDEZ Date: 2022-03-28 09:09 Normal [facility] ER URINE PROFILEon 2 Bilirubin Ql (U) Negative Normal NEGATIVE [facility] Comment on above: Performed By: #### E RUR #### [facility] [address] [place] [address] Dr. Soo [place] Clarity (U) CLEAR Normal CLEAR [facility] Comment on above: Performed By: #### E RUR #### [facility] [address] [place] [address] Dr. Soo [place] Color (U) LT. YELLOW Normal YELLOW [facility] Comment on above: Performed By: #### E RUR #### [facility] [address] [place] [address] Dr. Soo [place] ERUJUND A micrscopic examina tion will be performed if indicated. Normal [facility] Comment on above: Performed By: #### E RUR #### [facility] [address] [place] [address] Dr. Soo [place] Glucose Ql (U) Negative Normal NEGATIVE [facility] Comment on above: Performed By: #### E RUR #### [facility] [address] [place] [address] Dr. Soo Tyalor Hemoglobin Ql (U) Negative Normal NEGATIVE The [place] Comment on above: Performed By: #### E RUR #### [facility] [address] [place] [address] Dr. Soo [place] Ketones Ql (U) Negative Normal NEGATIVE [facility] Comment on above: Performed By: #### E RUR #### [facility] [address] [place] [address] Dr. Soo [place] LEUKOCYTES Negative Normal NEGATIVE [facility] Comment on above: Performed By: #### E RUR #### [facility] [address] [place] [address] Dr. Soo [place] Nitrite Ql (U) Negative Normal NEGATIVE [facility] Comment on above: Performed By: #### E RUR #### [facility] [address] [place] [address] Dr. Soo [place] pH (U) 5.5 [pH] Normal 5-[address] [facility] Comment on above: Performed By: #### E RUR #### [facility] [address] [place] [address] Dr. Soo [place] SPEC GRAVITY <=1.005 Abnormal 1.005-<=1. [address] [facility] Comment on above: Performed By: #### E RUR #### [facility] [address] [place] [address] Dr. Soo [place] UA PROTEIN Negative Normal NEGATIVE/ TRACE [facility] Comment on above: Performed By: #### E RUR #### [facility] [address] [place] [address] Dr. Soo [place] UR MICRO IND NOT INDICATED Normal [facility] Comment on above: Performed By: #### E RUR #### [facility] [address] [place] [address] Dr. Soo [place] Urobilinogen Qn (U) 0.2 {Gareth'U}/dL Normal 0.2 - 1. [address] [facility] Comment on above: Performed By: #### E RUR #### [facility] [address] [place] [address] Dr. Soo [place] COMPREHENSIVE METABOLIC PANE Bulmaro 02-22-2022 Albumin [Mass/Vol] 4.2 g/dL Normal 3.6-5.1 [facility] Comment on above: Performed By: #### 7 600, 75404, 496 #### [facility] [address], [address] [place] [phone] Access Service Representative: Arjun Ramos MD Albumin/Globulin [Mass ratio] 1.8 {ratio} Normal 1.0-2.5 [facility] Comment on above: Performed By: #### 7 600, 48996, 496 #### [facility] of [place] [address] Access Service Representative: Arjun Ramos MD ALP [Catalytic activity/Vol] 143 U/L Normal 37-153 [facility] Comment on above: Performed By: #### 7 600, 07427, 496 #### [facility] of [place] [address] Access Service Representative: Arjun Ramos MD ALT [Catalytic activity/Vol] 18 U/L Normal 6-29 [facility] Comment on above: Performed By: #### 7 600, 53814, 496 #### [facility] [place] [address] Access Service Representative: Arjun Ramos MD AST [Catalytic activity/Vol] 14 U/L Normal 10-35 [facility] Comment on above: Performed By: #### 7 600, 91619, 496 #### [facility] [place] [address] Access Service Representative: Arjun Ramos MD Bilirubin [Mass/Vol] 0.5 mg/dL Normal 0.2-1.2 [facility] Comment on above: Performed By: #### 7 600, 10939, 496 #### [facility] of [place] [address] Access Service Representative: Arjun Ramos MD Calcium [Mass/Vol] 10.0 mg/dL Normal 8.6-10.4 [facility] Comment on above: Performed By: #### 7 600, 69657, 496 #### [facility] [place] [address] Access Service Representative: Arjun Ramos MD Chloride [Moles/Vol] 100 mmol/L Normal 98-110 [facility] Comment on above: Performed By: #### 7 600, 46578, 496 #### [facility] [address], [address] [place] [address] Access Service Representative: Arjun Ramos MD CO2 [Moles/Vol] 29 mmol/L Normal 20-32 [facility] Comment on above: Performed By: #### 7 600, 31307, 496 #### [facility] [place] [address] Access Service Representative: Arjun Ramos MD Creatinine [Mass/Vol] 0.86 mg/dL Normal 0.50-1.05 [facility] Comment on above: Result Comment: For patients >49 years of age, the reference limit for Creatinine is approximately 13% higher for people identified as -Tajik. Performed By: #### 7 600, 55623, 496 #### [facility] [place] [address] Access Service Representative: Arjun Ramos MD eGFR NON-AFR. MARSHALLESE 78 mL/min/1.73m2 Normal > OR = 60 [facility] Comment on above: Performed By: #### 7 600, 36828, 496 #### [facility] [place] [address] Access Service Representative: Arjun Ramos MD GFR/1.73 sq M.predicted among blacks MDRD (S/P/Bld) [Vol rate/Area] 91 mL/min/{1.73_m2} Normal > OR = 60 [facility] Comment on above: Performed By: #### 7 600, 00778, 496 #### [facility] [place] [address] Access Service Representative: Arjun Ramos MD Globulin (S) [Mass/Vol] 2.4 g/dL Normal 1.9-3.7 [facility] Comment on above: Performed By: #### 7 600, 06934, 496 #### [facility] [place] [address] Access Service Representative: Arjun Ramos MD Glucose [Mass/Vol] 125 mg/dL Normal 65-139 [facility] Comment on above: Result Comment: Non-fasting reference interval For someone without known diabetes, a glucose value between 100 and 125 mg/dL is consistent with prediabetes and should be confirmed with a follow-up test. Performed By: #### 7 600, 00933, 496 #### [facility] [place] [address] Access Service Representative: Arjun Ramos MD Potassium [Moles/Vol] 3.6 mmol/L Normal 3.5-5.3 [facility] Comment on above: Performed By: #### 7 600, 02003, 496 #### [facility] [place] [address] Access Service Representative: Arjun Ramos MD Protein [Mass/Vol] 6.6 g/dL Normal 6.1-8.1 [facility] Comment on above: Performed By: #### 7 600, 99994, 496 #### [facility] [place] [address] Access Service Representative: Arjun Ramos MD Sodium [Moles/Vol] 139 mmol/L Normal 135-146 [facility] Comment on above: Performed By: #### 7 600, 84289, 496 #### [facility] [place] [address] Access Service Representative: Arjun Ramos MD Urea nitrogen [Mass/Vol] 4 mg/dL Low 7- [facility] Comment on above: Performed By: #### 7 600, 98786, 496 #### [facility] [place] [address] Access Service Representative: Arjun Ramos MD Urea nitrogen/Creatinine [Mass ratio] 5 mg/mg Low 6-22 [facility] Comment on above: Performed By: #### 7 600, 79106, 496 #### [facility] [place] [address] Access Service Representative: Arjun Ramos MD HEMOGLOBIN A1con 02-22-2022 HEMOGLOBIN [...] diagnosis of diabetes in children. According to [place] Diabetes Association (ADA) guidelines, hemoglobin A1c <7.0% represents optimal control in non- diabetic patients. Different metrics may apply to specific patient populations. Standards of Medical Care in Diabetes(ADA). Performed By: #### 7 600, 30990, 496 #### [facility] [address], [address] [place] [address] Access Service Representative: Arjun Ramos MD LIPID PANEL, STANDARD 070 Cholesterol [Mass/Vol] 187 mg/dL Normal <200 [facility] Comment on above: Order Comment: FASTI NG:NO FASTING: NO Performed By: #### 7 600, 15867, 496 #### [facility] [address], [address] [place] [address] Access Service Representative: Arjun Ramos MD Cholesterol in HDL [Mass/Vol] 43 mg/dL Low > OR = 50 [facility] Comment on above: Order Comment: FASTI NG:NO FASTING: NO Performed By: #### 7 600, 42807, 496 #### [facility] [address], [address] [place] [address] Access Service Representative: Arjun Ramos MD Cholesterol.total/C holesterol in HDL [Mass ratio] 4.3 {ratio} Normal <5.0 [facility] Comment on above: Order Comment: FASTI NG:NO FASTING: NO Performed By: #### 7 600, 80758, 496 #### [facility] [address], [address] [place] [address] Access Service Representative: Arjun Ramos MD LDL-CHOLESTEROL Normal [facility] [...] LDL-C. Lan SS et al. KELLY. 2013;310(19): 0892-6177 (http://education.GradFly/faq/PQD029) Performed By: #### 7 600, 22132, 496 #### [facility] [address], [address] [place], [place] [id number] Access Service Representative: Arjun Ramos MD NON HDL CHOLESTEROL 144 mg/dL (calc) High <130 [facility] Comment on above: Order Comment: FASTI NG:NO FASTING: NO Result Comment: For patients with diabetes plus 1 major ASCVD risk factor, treating to a non-HDL-C goal of <100 mg/dL (LDL-C of <70 mg/dL) is considered a therapeutic option. Performed By: #### 7 600, 42975, 496 #### [facility] [address], [address] [place], [place] [phone] Access Service Representative: Arjun Ramos MD Triglyceride [Mass/Vol] 425 mg/dL High <150 [facility] Comment on above: Order Comment: FASTI NG:NO FASTING: NO Result Comment: If a non-fasting specimen was collected, consider repeat triglyceride testing on a fasting specimen if clinically indicated. Heber et al. J. of Clin. Lipidol. 2015;9:129-169. Performed By: #### 7 600, 13882, 496 #### [facility] [address], [address] [place], [place] [phone] Access Service Representative: Arjun Ramos MD HEMOGLOBIN A1con 11-14-2021 HEMOGLOBIN [...] #### 7 600, 496 #### [facility] [address], [address] [place] [address] Access Service Representative: Arjun Ramos MD LIPID PANEL, [facility] [place] 10-18 Cholesterol [Mass/Vol] 184 mg/dL Normal <200 [facility] Comment on above: Order Comment: FASTI NG:YES FASTING: YES Performed By: #### 7 600, 496 #### [facility] [address], [address] [place] [address] Access Service Representative: Arjun Ramos MD Cholesterol in HDL [Mass/Vol] 32 mg/dL Low > OR = 50 [facility] Comment on above: Order Comment: FASTI NG:YES FASTING: YES Performed By: #### 7 600, 496 #### [facility] [address], [address] [place] [address] Access Service Representative: Arjun Ramos MD Cholesterol.total/C holesterol in HDL [Mass ratio] 5.8 {ratio} High <5.0 [facility] Comment on above: Order Comment: FASTI NG:YES FASTING: YES Performed By: #### 7 600, 496 #### [facility] [address], [address] [place] [address] Access Service Representative: Arjun Ramos MD LDL-CHOLESTEROL Normal [facility] [...] LDL-C. Lan MARTÍNEZ et al. KELLY. 2013;310(19): 1646-9338 (http://education.DrFirst.GKN - GloboKasNet/faq/LCA037) Performed By: #### 7 600, 496 #### [facility] [address], [address] [place] [address] Access Service Representative: Arjun Ramos MD NON HDL CHOLESTEROL 152 mg/dL (calc) High <130 [facility] Comment on above: Order Comment: FASTI NG:YES FASTING: YES Result Comment: For patients with diabetes plus 1 major ASCVD risk factor, treating to a non-HDL-C goal of <100 mg/dL (LDL-C of <70 mg/dL) is considered a therapeutic option. Performed By: #### 7 600, 496 #### [facility] [address], [address] [place] [address] Access Service Representative: Arjun Ramos MD Triglyceride [Mass/Vol] 531 mg/dL [...] #### 7 600, 496 #### [facility] [address], [address] [place] [address] Access Service Representative: Arjun MAROVon 06-27-2021 CNOV Office Visit ([facility] ) KETURAH HERRERA ([id number]) 1970 F Date Time Provider Department 06/27/21 2:00 PM EY RODRIGUEZ OTANTONINA During your visit today, we recorded the following information about you: Temperature Pulse 97.3 degrees 82/minute Ye Rodriguez PA-C 06/27/2021 4:56 PM Signed [facility] NOTE CC: Keturah Herrera is a [...] mg ta (more content not included)... Normal [facility] CNOVon 04-19-2021 CNOV Office Visit ([facility] ) KETURAH HERRERA ([id number]) 1970 F Date Time Provider Department 04/19/21 [...] Comments: hallucinate METHADONE 02/28/2015 11 - Vomiting MOXIFLOXACIN-SOD.CHLORIDE(IS O) 02/28/2015 16 - Unknown PENICILLINS 02/28/2015 11 - Vomiting TOPAMAX (TOPIRAMATE) 02/28/2015 16 - Unknown TORADOL (KETOROLAC) 02/28/2015 14 - Other: See Comments Comments: Abdominal pain VERAPAMIL 02/28/2015 11 - Vomiting Date Reviewed: 04/19/2021 Reviewed by: Randi Farrell DO - Fully Assessed Reason for Visit: New [253808] Fracture [4131] Primary Visit Diagnosis:Other closed nondisplaced fracture of proximal end of left humerus, initial encounter [S42.295A] Other Visit Diagnosis:Right elbow pain [M25.521] Order(s):XR ELBOW SPECIAL VIEWS AP/LAT/OTHER RT [8245305] Order #: [id number] FUTURE CONSULT TO IRRIGATION FOREMAN [[id number]] Order #: [id number]: 1 FUTURE Prescriptions as of 04/19/2021 - [...] of att (more content not included)... 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 IMPRESSION: HEALING FRACTURE [employer] Press Operator: DIONNE Transcribe Date/Time: Apr 19 2021 2:02P Dictated by : CAROL ROCHE MD This examination was interpreted and the report reviewed and electronically signed by: CAROL ROCHE MD on Apr 19 2021 2:02PM EST [id number] Normal [facility] Vital Signs Date Time Vital Sign Value Performing Clinician Facility 03-05-2024 15:16-0400 Diastolic blood pressure 69 mm[Hg] Andrew Eid [facility] 03-05-2024 15:16-0400 Heart rate 62 /min Andrew Eid [facility] 03-05-2024 15:16-0400 Mean blood pressure 84 mm[Hg] Andrew Eid [facility] 03-05-2024 15:16-0400 Respiratory rate 14 /min Andrew Eid [facility] 03-05-2024 15:16-0400 Systolic blood pressure 115 mm[Hg] Andrew Eid [facility] 01-30-2024 13:54-0400 Diastolic blood pressure 68 mm[Hg] En Carmen [facility] 01-30-2024 13:54-0400 Systolic blood pressure 124 mm[Hg] En Carmen [facility] 01-15-2024 08:16-0400 Diastolic blood pressure 70 mm[Hg] Cady Alva [facility] 01-15-2024 08:16-0400 Heart rate 73 /min Cady Alva [facility] 01-15-2024 08:16-0400 Mean blood pressure 82 mm[Hg] Cady Alva [facility] 01-15-2024 08:16-0400 Respiratory rate 16 /min Cady Alva [facility] 01-15-2024 08:16-0400 Systolic blood pressure 105 mm[Hg] Cady Alva [facility] 01-01-2024 11:04-0400 Diastolic blood pressure 71 mm[Hg] Cady Alva [facility] 01-01-2024 11:04-0400 Heart rate 62 /min Cady Alva [facility] 01-01-2024 11:04-0400 Mean blood pressure 91 mm[Hg] Cady Alva [facility] 01-01-2024 11:04-0400 Respiratory rate 12 /min Cady Alva [facility] 01-01-2024 11:04-0400 Systolic blood pressure 131 mm[Hg] Cady Alva [facility] 12-31-2023 12:53-0400 Blood Pressure Location POLLY YUDY [facility] 12-31-2023 12:53-0400 Diastolic blood pressure 65 mm[Hg] POLLY YUDY [facility] 12-31-2023 12:53-0400 Heart rate 57 /min POLLY YUDY [facility] 12-31-2023 12:53-0400 Respiratory rate 16 /min PLOLY YUDY [facility] 12-31-2023 12:53-0400 Systolic blood pressure 117 mm[Hg] POLLY YUDY [facility] 12-11-2023 09:29-0400 Heart rate 89 /min Andrew Eid [facility] 12-11-2023 09:29-0400 SaO2% (BldA) [Mass fraction] 96 % Andrew Eid [facility] 12-11-2023 09:29-0400 Diastolic blood pressure 86 mm[Hg] Andrew Eid [facility] 12-11-2023 09:29-0400 Mean blood pressure 103 mm[Hg] Andrew Eid [facility] 12-11-2023 09:29-0400 Systolic blood pressure 137 mm[Hg] Andrew Eid [facility] 12-11-2023 09:29-0400 Respiratory rate 14 /min Andrew Eid [facility] 12-11-2023 09:25-0400 Diastolic blood pressure 84 mm[Hg] Andrew Eid [facility] 12-11-2023 09:25-0400 Heart rate 97 /min Andrew Eid [facility] 12-11-2023 09:25-0400 SaO2% (BldA) [Mass fraction] 96 % Andrew Eid [facility] 12-11-2023 09:25-0400 Systolic blood pressure 141 mm[Hg] Andrew Eli [facility] 12-11-2023 08:44-0400 Heart rate 93 /min Andrew Eid [facility] 12-11-2023 08:44-0400 SaO2% (BldA) [Mass fraction] 94 % Andrew Eli [facility] 12-11-2023 08:44-0400 Body temperature 98.24 [degF] Andrew Eli [facility] 12-11-2023 08:43-0400 Diastolic blood pressure 86 mm[Hg] Andrew Eid [facility] 12-11-2023 08:43-0400 Mean blood pressure 102 mm[Hg] Andrew Eid [facility] 12-11-2023 08:43-0400 Systolic blood pressure 134 mm[Hg] Andrew Eid [facility] 12-11-2023 08:43-0400 Respiratory rate 15 /min Andrew Eid [facility] 11-06-2023 09:32-0400 Diastolic blood pressure 71 mm[Hg] Cady Alva [facility] 11-06-2023 09:32-0400 Heart rate 79 /min Cady Alva [facility] 11-06-2023 09:32-0400 Mean blood pressure 84 mm[Hg] Cady Alva [facility] 11-06-2023 09:32-0400 Respiratory rate 15 /min Cady Alva [facility] 11-06-2023 09:32-0400 Systolic blood pressure 111 mm[Hg] Cady Alva [facility] 10-03-2023 16:13-0500 Body height 162.6 cm [employer] Work Phone: [facility] [employer] 10-03-2023 16:13-0500 Body mass index (BMI) [Ratio] 30.47 kg/m2 [employer] DO Work Phone[facility] 10-03-2023 16:13-0500 Body temperature 97.3 [degF] [employer] DO Work Phone: [facility] 10-03-2023 16:13-0500 Body weight 80.51 kg [employer] Work Phone: [facility] 02-15-2024 16:13-0500 Diastolic blood pressure 60 mm[Hg] Robert Furlong DO Work Phone: [facility] 10-03-2023 16:13-0500 Heart rate 67 /min Robert Furlong DO Work Phone: [facility] 10-03-2023 16:13-0500 SaO2% (BldA) [Mass fraction] 98 % Robert Furlong DO Work Phone: [facility] 10-03-2023 16:13-0500 Systolic blood pressure 118 mm[Hg] Robert Furlong DO Work Phone: [facility] 09-26-2023 15:11-0500 Body height 165.1 cm Martin Arango DPM Work Phone: [facility] 09-26-2023 15:11-0500 Body mass index (BMI) [Ratio] 29.29 kg/m2 Martin Arango DPM Work Phone: [facility] 09-26-2023 15:11-0500 Body weight 79.83 kg Martin Arango DPM Work Phone: [facility] 09-26-2023 15:11-0500 Diastolic blood pressure 80 mm[Hg] Martin Arango DPM Work Phone: [facility] 09-26-2023 15:11-0500 Heart rate 79 /min Martin Arango DPM Work Phone: [facility] 09-26-2023 15:11-0500 Systolic blood pressure 133 mm[Hg] Martin Arango DPM Work Phone: [facility] 09-17-2023 08:23-0500 Blood Pressure Location POLLY MARIANO [facility] 09-17-2023 08:23-0500 Diastolic blood pressure 52 mm[Hg] POLLY MARIANO [facility] 09-17-2023 08:23-0500 Heart rate 65 /min POLLY MARIANO [facility] 09-17-2023 08:23-0500 Respiratory rate 16 /min POLLY MARIANO [facility] 09-17-2023 08:23-0500 Systolic blood pressure 135 mm[Hg] POLLY MARIANO [facility] 08-27-2023 10:30-0500 Body height 165.1 cm Valarie Javier Other [employer] [facility] [employer] Other 08-27-2023 10:30-0500 Body mass index (BMI) [Ratio] 29.28 kg/m2 Valarie Javier Other [employer] Other 08-27-2023 10:30-0500 Body temperature 97.2 [degF] Valarie Javier Other [employer] Other 08-27-2023 10:30-0500 Body weight 79.83 kg Valarie Javier Other [employer] Other 08-27-2023 10:30-0500 Diastolic blood pressure 80 mm[Hg] Valarie Javier Other [employer] Other 08-27-2023 10:30-0500 Respiratory rate 20 /min Valarie Javier Other [employer] Other 08-27-2023 10:30-0500 SaO2% (BldA) [Mass fraction] 93 % Valarie Javier Other [employer] Other 08-27-2023 10:30-0500 Systolic blood pressure 132 mm[Hg] Valarie Herrera Other [employer] Other 07-25-2023 10:39-0500 Blood Pressure Location Elliott SOLIS [facility] 07-25-2023 10:39-0500 Diastolic blood pressure 82 mm[Hg] Elliott SOLIS [facility] 07-25-2023 10:39-0500 Heart rate 76 /min Elliott SOLIS [facility] 07-25-2023 10:39-0500 SaO2% (BldA) [Mass fraction] 97 % Elliott SOLIS [facility] 07-25-2023 10:39-0500 Systolic blood pressure 138 mm[Hg] Elliott SOLIS [facility] 07-05-2023 15:44-0500 Blood Pressure Location Cadyblaine CALIX [facility] 07-05-2023 15:44-0500 Diastolic blood pressure 83 mm[Hg] Cady STANG [facility] 07-05-2023 15:44-0500 Heart rate 70 /min Cady STANG [facility] 07-05-2023 15:44-0500 SaO2% (BldA) [Mass fraction] 99 % Cady STANG [facility] 07-05-2023 15:44-0500 Systolic blood pressure 138 mm[Hg] Cady STANG [facility] 05-20-2023 10:03-0400 Blood Pressure Location Cady STANG [facility] 05-20-2023 10:03-0400 Diastolic blood pressure 80 mm[Hg] Cady STANG [facility] 05-20-2023 10:03-0400 Heart rate 75 /min Cady CALIX [facility] 05-20-2023 10:03-0400 SaO2% (BldA) [Mass fraction] 98 % Cady CALIX [facility] 05-20-2023 10:03-0400 Systolic blood pressure 130 mm[Hg] Cady CALIX [facility] 02-26-2023 08:30-0400 Body height 165.1 cm Valarie Javier Other [employer] [facility] [employer] Other 02-26-2023 08:30-0400 Body mass index (BMI) [Ratio] 28.25 kg/m2 Valarie Javier Other [employer] Other 02-26-2023 08:30-0400 Body temperature 96.9 [degF] Valarie Javier Other [employer] Other 02-26-2023 08:30-0400 Body weight 77.02 kg Valarie Javier Other [employer] Other 02-26-2023 08:30-0400 Diastolic blood pressure 84 mm[Hg] Valarie Javier Other [employer] Other 02-26-2023 08:30-0400 Respiratory rate 20 /min Valarie Javier Other [employer] Other 02-26-2023 08:30-0400 SaO2% (BldA) [Mass fraction] Valarie Javier Other [employer] Other 02-26-2023 08:30-0400 Systolic blood pressure 138 mm[Hg] Valarie Javier Other [facility] [employer] Other 01-17-2023 10:04-0400 Diastolic blood pressure 76 mm[Hg] Poole SALAM [facility] 01-17-2023 10:04-0400 Heart rate 70 /min Poole SALAM [facility] 01-17-2023 10:04-0400 Mean blood pressure 100 mm[Hg] Poole SALAM [facility] 01-17-2023 10:04-0400 Respiratory rate 17 /min Poole SALAM [facility] 01-17-2023 10:04-0400 SaO2% (BldA) [Mass fraction] 99 % Poole SALAM [facility] 01-17-2023 10:04-0400 Systolic blood pressure 149 mm[Hg] Poole SALAM [facility] 01-17-2023 09:55-0400 Diastolic blood pressure 80 mm[Hg] Poole SALAM [facility] 01-17-2023 09:55-0400 Heart rate 74 /min Poole SALAM [facility] 01-17-2023 09:55-0400 Mean blood pressure 97 mm[Hg] Poole SALAM [facility] 01-17-2023 09:55-0400 Respiratory rate 15 /min Poole SALAM [facility] 01-17-2023 09:55-0400 SaO2% (BldA) [Mass fraction] 99 % Poole SALAM [facility] 01-17-2023 09:55-0400 Systolic blood pressure 132 mm[Hg] Poole SALAM [facility] 01-17-2023 09:50-0400 Diastolic blood pressure 79 mm[Hg] Poole SALAM [facility] 01-17-2023 09:50-0400 Heart rate 73 /min Poole SALAM [facility] 01-17-2023 09:50-0400 Mean blood pressure 94 mm[Hg] Poole SALAM [facility] 01-17-2023 09:50-0400 Respiratory rate 13 /min Poole SALAM [facility] 01-17-2023 09:50-0400 SaO2% (BldA) [Mass fraction] 98 % Poole SALAM [facility] 01-17-2023 09:50-0400 Systolic blood pressure 125 mm[Hg] Poole SALAM [facility] 01-17-2023 09:39-0400 Body temperature 98.24 [degF] Poole SALAM [facility] 01-17-2023 08:35-0400 Blood Pressure Location Poole SALAM [facility] 01-17-2023 08:35-0400 Body temperature 98.06 [degF] Poole SALAM [facility] 11-21-2022 12:41-0400 Heart rate 61 /min Martin Arango [facility] 11-21-2022 12:41-0400 SaO2% (BldA) [Mass fraction] 97 % Martin Arango [facility] 11-21-2022 12:41-0400 Diastolic blood pressure 64 mm[Hg] Martin Arango [facility] 11-21-2022 12:41-0400 Mean blood pressure 85 mm[Hg] Martin Arango [facility] 11-21-2022 12:41-0400 Systolic blood pressure 128 mm[Hg] Martin Arango [facility] 11-21-2022 12:41-0400 Body temperature 96.98 [degF] Martin Arango [facility] 11-21-2022 12:40-0400 Respiratory rate 16 /min Martin Arango [facility] 11-21-2022 11:09-0400 Heart rate 66 /min Martin Arango [facility] 11-21-2022 11:09-0400 SaO2% (BldA) [Mass fraction] 100 % Martin Arango [facility] 11-21-2022 11:09-0400 Diastolic blood pressure 68 mm[Hg] Martin Arango [facility] 11-21-2022 11:09-0400 Mean blood pressure 84 mm[Hg] Martin Arango [facility] 11-21-2022 11:09-0400 Systolic blood pressure 116 mm[Hg] Martin Arango [facility] 11-21-2022 11:09-0400 Body temperature 98.06 [degF] Martin Arango [facility] 11-21-2022 11:08-0400 Respiratory rate 14 /min Martin Arango [facility] 11-21-2022 10:55-0400 Body temperature 97.16 [degF] Martin Brown [facility] 11-21-2022 10:55-0400 Diastolic blood pressure 85 mm[Hg] Martin Arango [facility] 11-21-2022 10:55-0400 Heart rate 65 /min Martin Arango [facility] 11-21-2022 10:55-0400 Mean blood pressure 98 mm[Hg] Martin Arango [facility] 11-21-2022 10:55-0400 Respiratory rate 18 /min Martin Arango [facility] 11-21-2022 10:55-0400 SaO2% (BldA) [Mass fraction] 98 % Martin Arango [facility] 11-21-2022 10:55-0400 Systolic blood pressure 123 mm[Hg] Martin Arango [facility] 11-21-2022 10:45-0400 Mean blood pressure 84 mm[Hg] Martin Arango [facility] 11-21-2022 10:45-0400 Respiratory rate 15 /min Martin Arango [facility] 11-21-2022 10:30-0400 Mean blood pressure 73 mm[Hg] Martin Arango [facility] 11-21-2022 10:30-0400 Respiratory rate 13 /min Martin Arango [facility] 11-21-2022 10:15-0400 Respiratory rate 1 /min Martin Arango [facility] 11-21-2022 07:43-0400 Mean blood pressure 100 mm[Hg] Martin Arango [facility] 11-21-2022 07:43-0400 Heart rate 62 /min Martin Arango [facility] 10-30-2022 15:25-0400 Blood Pressure Location Elliott Will [facility] 10-30-2022 15:25-0400 Diastolic blood pressure 80 mm[Hg] Elliott Solis [facility] 10-30-2022 15:25-0400 Heart rate 70 /min Elliott Will [facility] 10-30-2022 15:25-0400 SaO2% (BldA) [Mass fraction] 95 % Elliott Solis [facility] 10-30-2022 15:25-0400 Systolic blood pressure 126 mm[Hg] Elliott Solis [facility] 10-29-2022 14:56-0400 Diastolic blood pressure 86 mm[Hg] Inessa Nicci [facility] 10-29-2022 14:56-0400 Mean blood pressure 103 mm[Hg] Inessa Nicci [facility] 10-29-2022 14:56-0400 Systolic blood pressure 138 mm[Hg] Inessa Nicci [facility] 10-29-2022 14:50-0400 Blood Pressure Location Inessa Nicci [facility] 10-29-2022 14:50-0400 Body temperature 97.88 [degF] Inessa Nicci [facility] 10-29-2022 14:50-0400 Diastolic blood pressure 86 mm[Hg] Inessa Nicci [facility] 10-29-2022 14:50-0400 Heart rate 85 /min Inessa Nicci [facility] 10-29-2022 14:50-0400 Systolic blood pressure 141 mm[Hg] Inessa Grajeda [facility] 10-20-2022 10:33-0500 Body temperature 95.9 [degF] Santos Landry [facility] 10-20-2022 10:33-0500 Diastolic blood pressure 73 mm[Hg] Santos Landry [facility] 10-20-2022 10:33-0500 Heart rate 62 /min Santosaparna Landry [facility] 10-20-2022 10:33-0500 Respiratory rate 18 /min Santos Landry [facility] 10-20-2022 10:33-0500 SaO2% (BldA) [Mass fraction] 100 % Santos Landry [facility] 10-20-2022 10:33-0500 Systolic blood pressure 151 mm[Hg] Santos Landry [facility] 10-12-2022 13:06-0500 Body temperature 97.7 [degF] Santos Landry [facility] 10-12-2022 13:06-0500 Diastolic blood pressure 71 mm[Hg] Santos Landry [facility] 10-12-2022 13:06-0500 Heart rate 68 /min Santos Frantz [facility] 10-12-2022 13:06-0500 Respiratory rate 18 /min Santos Frantz [facility] 10-12-2022 13:06-0500 SaO2% (BldA) [Mass fraction] 98 % Santos Landry [facility] 10-12-2022 13:06-0500 Systolic blood pressure 126 mm[Hg] Santos Landry [facility] 10-02-2022 12:31-0500 Blood Pressure Location Inessa Grajeda [facility] 10-02-2022 12:31-0500 Diastolic blood pressure 52 mm[Hg] Inessa Carmenmetz [facility] 10-02-2022 12:31-0500 Heart rate 56 /min Inessa Grajeda [facility] 10-02-2022 12:31-0500 SaO2% (BldA) [Mass fraction] 100 % Inessa Grajeda [facility] 10-02-2022 12:31-0500 Systolic blood pressure 136 mm[Hg] Inessa Grajeda [facility] 09-06-2022 10:09-0500 Blood Pressure Location Poole SALAM [facility] 09-06-2022 10:09-0500 Diastolic blood pressure 71 mm[Hg] Poole SALAM [facility] 09-06-2022 10:09-0500 Heart rate 70 /min Poole SALAM [facility] 09-06-2022 10:09-0500 Respiratory rate 22 /min Poole SALAM [facility] 09-06-2022 10:09-0500 Systolic blood pressure 145 mm[Hg] Poole SALAM [facility] 09-06-2022 10:05-0500 Blood Pressure Location Poole SALAM [facility] 09-06-2022 10:05-0500 Diastolic blood pressure 66 mm[Hg] Poole SALAM [facility] 09-06-2022 10:05-0500 Heart rate 66 /min Poole SALAM [facility] 09-06-2022 10:05-0500 Respiratory rate 20 /min Poole SALAM [facility] 09-06-2022 10:05-0500 SaO2% (BldA) [Mass fraction] 100 % Poole SALAM [facility] 09-06-2022 10:05-0500 Systolic blood pressure 94 mm[Hg] Poole SALAM [facility] 09-06-2022 10:00-0500 Heart rate 59 /min Poole SALAM [facility] 09-06-2022 10:00-0500 Respiratory rate 17 /min Poole SALAM [facility] 09-06-2022 10:00-0500 Systolic blood pressure 90 mm[Hg] Poole SALAM [facility] 09-06-2022 09:55-0500 SaO2% (BldA) [Mass fraction] 100 % Poole SALAM [facility] 09-06-2022 09:40-0500 Body temperature 96.62 [degF] Poole SALAM [facility] 09-06-2022 07:35-0500 Body temperature 96.62 [degF] Poole SALAM [facility] 07-05-2022 10:00-0500 Body height 165.1 cm Valarie Herrera Other [employer] Other 07-05-2022 10:00-0500 Body mass index (BMI) [Ratio] 28.95 kg/m2 Valarie Javier Other [employer] Other 07-05-2022 10:00-0500 Body temperature 97 [degF] Valarie Javier Other [employer] Other 07-05-2022 10:00-0500 Body weight 78.93 kg Valarie Javier Other [employer] Other 07-05-2022 10:00-0500 Diastolic blood pressure 77 mm[Hg] Valarie Javier Other [employer] Other 07-05-2022 10:00-0500 Respiratory rate 20 /min Valarie Javier Other [employer] Other 07-05-2022 10:00-0500 SaO2% (BldA) [Mass fraction] Valarie Javier Other [employer] Other 07-05-2022 10:00-0500 Systolic blood pressure 137 mm[Hg] Valarie Javier Other [employer] Other 05-15-2022 13:22-0400 Diastolic blood pressure 65 mm[Hg] Cady STANG [facility] 05-15-2022 13:22-0400 Mean blood pressure 85 mm[Hg] Cady STANG [facility] 05-15-2022 13:22-0400 Systolic blood pressure 126 mm[Hg] Cady STANG [facility] 05-15-2022 13:08-0400 Blood Pressure Location Cady STANG [facility] 05-15-2022 13:08-0400 Diastolic blood pressure 88 mm[Hg] Cady STANG [facility] 05-15-2022 13:08-0400 Heart rate 62 /min Cady STANG [facility] 05-15-2022 13:08-0400 Respiratory rate 18 /min Cady STANG [facility] 05-15-2022 13:08-0400 SaO2% (BldA) [Mass fraction] 100 % Cady STANG [facility] 05-15-2022 13:08-0400 Systolic blood pressure 140 mm[Hg] Cady ERNIEG [facility] 03-20-2022 13:16-0400 Diastolic blood pressure 72 mm[Hg] Elliott Solis [facility] 03-20-2022 13:16-0400 Heart rate 73 /min Elliott Solis [facility] 03-20-2022 13:16-0400 Mean blood pressure 87 mm[Hg] Elliott Solis [facility] 03-20-2022 13:16-0400 Respiratory rate 18 /min Elliott Solis [facility] 03-20-2022 13:16-0400 Systolic blood pressure 118 mm[Hg] Elliott Solis [facility] 03-06-2022 10:27-0400 Blood Pressure Location Cadyblaine KLEING [facility] 03-06-2022 10:27-0400 Diastolic blood pressure 78 mm[Hg] Cady STANG [facility] 03-06-2022 10:27-0400 Heart rate 68 /min Cady STANG [facility] 03-06-2022 10:27-0400 Respiratory rate 18 /min Cady STANG [facility] 03-06-2022 10:27-0400 SaO2% (BldA) [Mass fraction] 98 % Cady CALIX [facility] 03-06-2022 10:27-0400 Systolic blood pressure 137 mm[Hg] Cady CALIX [facility] 01-11-2022 15:06-0400 Diastolic blood pressure 83 mm[Hg] Poolevenu CURRYAM [facility] 01-11-2022 15:06-0400 Heart rate 61 /min Poole SALAM [facility] 01-11-2022 15:06-0400 Systolic blood pressure 136 mm[Hg] Poole SALAM [facility] 12-11-2021 12:00-0400 Blood Pressure Location Donaldo PEARSON [facility] 12-11-2021 12:00-0400 Diastolic blood pressure 75 mm[Hg] Donaldo [facility]ARSON [facility] 12-11-2021 12:00-0400 Heart rate 78 /min Donaldo PEARSON [facility] 12-11-2021 12:00-0400 Systolic blood pressure 107 mm[Hg] Donaldo [facility]ARSON [facility] En[facility]ters Encounter Date Encounter Type Care Provider Facility Start: 04-15-2024 End: 04-15-2024 ambulatory KAYLAH CORONADO Not Available Start: 04-14-2024 End: 04-14-2024 ambulatory PASTORA LYNN Not Available Start: 04-13-2024 End: 04-13-2024 ambulatory CJ QUESADA Not Available Start: 04-09-2024 End: 04-09-2024 ambulatory MARTIN ARANGO Not Available Start: 04-08-2024 End: 04-08-2024 ambulatory CJ Talbot APLING Not Available Start: 04-02-2024 End: 04-02-2024 ambulatory MARTIN ARANGO Not Available Start: 03-31-2024 End: 03-31-2024 Patient encounter procedure DO Robert Furlong Work Phone: [facility] [address] Work Phone: Start: 03-31-2024 End: 03-31-2024 ambulatory DO Robert Furlong Work Phone: [facility] Work Phone: Start: 03-27-2024 End: 03-27-2024 ambulatory [facility] Start: 03-20-2024 End: 03-20-2024 ambulatory ANA CORONADO Not Available Start: 03-17-2024 End: 03-17-2024 ambulatory ANA CORONADO Not Available Start: 03-13-2024 End: 03-13-2024 ambulatory ANA CORONADO Not Available Start: 03-10-2024 End: 03-10-2024 ambulatory ANA CORONADO Not Available Start: 03-05-2024 End: 03-05-2024 ambulatory Andrew Eid Facility:[facility] Start: 03-05-2024 End: 03-05-2024 Pain Management Andrew Eid [facility] Start: 02-27-2024 End: 02-27-2024 ambulatory JOEL Amato [facility] Start: 02-26-2024 End: 02-26-2024 ambulatory [facility] Start: 02-26-2024 Encounter for other preprocedural examination [facility] Start: 02-21-2024 End: 02-21-2024 ambulatory FRENCH LEVINE Not Available Start: 02-18-2024 End: 02-18-2024 ambulatory CATY MALHOTRA Not Available Start: 02-06-2024 End: 02-06-2024 ambulatory KAYLAH CORONADO Not Available Start: 02-04-2024 End: 02-04-2024 ambulatory ANDRIA RAUL Not Available Start: 01-31-2024 End: 02-01-2024 Emergency department patient visit KAMILLE JACKSON [facility] Start: 01-30-2024 End: 01-30-2024 ambulatory XXXX NONE Facility:[facility] Start: 01-30-2024 End: 01-30-2024 Patient encounter procedure En Carmen [facility] Start: 01-24-2024 End: 01-24-2024 ambulatory CATY MALHOTRA Not Available Start: 01-23-2024 End: 01-23-2024 ambulatory [facility] Start: 01-21-2024 End: 01-21-2024 ambulatory CATY MALHOTRA Not Available Start: 01-20-2024 End: 01-20-2024 ambulatory [facility] Start: 01-20-2024 End: 01-20-2024 ambulatory NURIA SANCHEZ Not Available Start: 01-17-2024 End: 01-17-2024 ambulatory ROBERT Pamela [facility] Start: 01-16-2024 End: 01-16-2024 ambulatory KAYLAH CORONADO Not Available Start: 01-15-2024 End: 01-15-2024 ambulatory PA-Veronica Alva Facility:[facility] Start: 01-15-2024 End: 01-15-2024 Pain Management Cady Alva [facility] Start: 01-01-2024 End: 01-01-2024 ambulatory Cady Alva Facility:[facility] Start: 01-01-2024 End: 01-01-2024 Pain Management Cady Alva [facility] Start: 12-31-2023 End: 12-31-2023 ambulatory POLLY MARIANO Facility:[facility] Start: 12-31-2023 End: 12-31-2023 Patient encounter procedure POLLY MARIANO [facility] Start: 12-26-2023 End: 12-26-2023 ambulatory MARTIN ARANGO Not Available Start: 12-18-2023 End: 12-18-2023 ambulatory [facility] Start: 12-13-2023 End: 12-13-2023 ambulatory [facility] Start: 12-12-2023 End: 12-12-2023 ambulatory MARTIN ARANGO Not Available Start: 12-11-2023 End: 12-11-2023 ambulatory DO Andrew Eid Facility:[facility] Start: 12-11-2023 End: 12-11-2023 Pain Management Andrew Eid [facility] Start: 11-21-2023 Refill Robert augustin DO Work Phone: [facility] Start: 11-21-2023 End: 11-21-2023 ambulatory MARTIN ARANGO Not Available Start: 11-20-2023 End: 11-20-2023 ambulatory NURIA SANCHEZ Not Available Start: 11-06-2023 End: 11-06-2023 ambulatory Cadyblaine Alva Facility:[facility] Start: 11-06-2023 End: 11-06-2023 Pain Management Cadyblaine Alva [facility] Start: 11-04-2023 Refill Robert augustin DO Work Phone: [facility] - Family Medicine Start: 11-01-2023 Orders Only Fiona Rockwell [employer] Work Phone: [facility] Internal Medicine - Family [facility] Start: 10-31-2023 End: 10-31-2023 ambulatory MARTIN ARANGO Not Available Start: 10-30-2023 Bernice Petty [facility] Internal Medicine - Family Medicine Comment on above: Anxiety state; Type 2 diabetes mellitus without complication, without long-term current use of insulin ([facility]); Type 2 diabetes mellitus with diabetic mononeuropathy, without long-term current use of insulin ([facility]) Start: 10-24-2023 End: 10-24-2023 ambulatory MARTIN ARANGO Not Available Start: 10-17-2023 End: 10-17-2023 ambulatory MARTIN ARANGO Not Available Start: 10-03-2023 End: 10-03-[address] [facility] Start: 10-03-2023 End: 10-03-2023 Office outpatient visit 15 minutes Robert Carmencharli DO Work Phone: [facility] Internal Medicine [facility] Comment on above: Pre-op evaluation (P rimary Dx); Hallux valgus of right foot; Essential hypertension; Diabetic peripheral neuropathy ([facility]) Start: 10-03-2023 End: 10-03-2023 Preprocedural examination done Robert Carmencharli DO Work Phone: [facility] Work Phone: Start: 09-27-2023 Telephone encounter Nuria Sanchez MD Work Phone: [facility] Start: 09-26-2023 End: 09-26-2023 Office outpatient visit 25 minutes Martin Aragno DPM Work Phone: [facility] Comment on above: Hav (hallux abducto valgus), right (Primary Dx); Plantar fasciitis; Diabetes 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 polyneuropathy, with long-term current use of insulin (CMS/HCC); Contracture of right ankle; Bone spur of right foot Start: 09-26-2023 End: 09-26-2023 ambulatory MARTIN ARANGO Not Available Start: 09-26-2023 Refill Robert Worthy ng DO Work Phone: [facility] Start: 09-20-2023 Refill Nuria moreira MD Work Phone: [facility] Comment on above: Chronic bilateral lo w back pain with bilateral sciatica; Diabetic peripheral neuropathy (CMS/HCC); Lumbar radiculopathy Start: 09-19-2023 End: 09-19-2023 ambulatory Valarie Javier Other [employer] Other Start: 09-19-2023 Telephone encounter Valarie Javier [facility] Start: 09-17-2023 End: 09-17-2023 ambulatory POLLY MARIANO Facility:[facility] Start: 09-17-2023 End: 09-17-2023 Patient encounter procedure POLLY MARIANO [facility] Start: 09-16-2023 End: 09-19-2023 ambulatory ROBERT GIRON [facility] Start: 09-08-2023 Refill Robert augustin DO Work Phone: [facility] Start: 09-02-2023 Orders Only Robert Worthy ng DO Work Phone: [facility] Comment on above: Anxiety state Start: 08-28-2023 End: 08-28-2023 ambulatory NURIA SANCHEZ Not Available Start: 08-27-2023 End: 08-27-2023 ambulatory Valarie Javier Other [employer] Other Start: 08-27-2023 Office outpatient vi sit 25 minutes Valarie Javier [facility] Start: 08-23-2023 Orders Only Robert augustin DO Work Phone: [facility] Comment on above: 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, sciatica laterality unspecified Start: 08-20-2023 End: 08-20-2023 ambulatory ANDRIA CARTER Not Available Start: 08-16-2023 Refill Robert augustin DO [facility] Comment on above: Oral thrush Start: 08-09-2023 End: 08-09-2023 ambulatory FRENCH LEVINE Not Available Start: 08-08-2023 End: 08-08-2023 ambulatory MARTIN ARANGO Not Available Start: 08-06-2023 End: 08-06-2023 ambulatory ИВАН HARMAN Not Available Start: 08-05-2023 End: 08-06-2023 Emergency department patient visit [facility] Start: 08-01-2023 End: 08-01-2023 ambulatory ИВАН HARMAN Not Available Start: 07-25-2023 End: 07-25-2023 ambulatory XXXX NONE Facility:[facility] Start: 07-25-2023 End: 07-25-2023 Patient encounter procedure Elliott SOLIS [facility] Start: 07-22-2023 End: 07-22-2023 ambulatory RITCHIE KIRBY Not Available Start: 07-18-2023 End: 07-18-2023 ambulatory ИВАН TATLAYOALL Not Available Start: 07-08-2023 End: 07-08-2023 ambulatory ROSHAN HOLLOWAY Not Available Start: 07-05-2023 End: 07-05-2023 Patient encounter procedure Cady CALIX [facility] Start: 07-05-2023 End: 07-05-2023 ambulatory XXXX NONE Facility:[facility] Start: 07-04-2023 End: 07-04-2023 ambulatory MARTIN ARANGO Not Available Start: 06-24-2023 End: 06-25-2023 ambulatory NURIA SANCHEZ [facility] Start: 06-14-2023 End: 06-14-2023 ambulatory ADVICE NURSE Cady Amato Johnie Facility:[facility] Start: 06-14-2023 End: 06-14-2023 Patient encounter procedure Cady CALIX [facility] Start: 05-22-2023 End: 05-22-2023 ambulatory Inessarm Carmenmetz Facility:[facility] Start: 05-22-2023 End: 05-22-2023 Patient encounter procedure [facility] Start: 05-20-2023 End: 05-20-2023 ambulatory XXXX NONE Facility:[facility] Start: 05-20-2023 End: 05-20-2023 Patient encounter procedure Cady CALIX [facility] Start: 05-16-2023 End: 05-16-2023 ambulatory XXXX NONE Facility:[facility] Start: 04-04-2023 End: 04-04-2023 ambulatory Valarie Javier Other [employer] Other Start: 04-04-2023 Telephone encounter Valarie Javier [facility] Start: 04-03-2023 End: 04-03-2023 ambulatory DO Robert Furlong Work Phone: [facility] Work Phone: Start: 04-03-2023 End: 04-03-2023 Patient encounter procedure DO Robert Furlong Work Phone: [facility] [address] Work Phone: Start: 02-26-2023 End: 02-26-2023 ambulatory Valarie Javier Other [employer] Other Start: 02-26-2023 Office outpatient vi sit 25 minutes Valarie Javier [facility] Start: 01-17-2023 End: 01-17-2023 Patient encounter procedure Zulema CRAMER [facility] Start: 12-22-2022 End: 01-16-[address] DOCTOR GALLO Facility:[facility] Start: 12-21-2022 End: 12-22-[address] DOCTOR GALLO Facility:[facility] Start: 11-29-2022 End: 11-29-[address] ROBERT GIRON Facility:[facility] Start: 11-26-2022 End: 11-26-[address] ROBERT GIRON Facility:[facility] Start: 11-21-2022 End: 11-21-2022 Admission to same day surgery center Martin Arango [facility] Start: 10-30-2022 End: 10-30-2022 Patient encounter procedure Elliott Solis [facility] Start: 10-29-2022 End: 10-29-2022 Patient encounter procedure Inessa Grajeda [facility] Start: 10-20-2022 End: 10-20-2022 Emergency department patient visit Santos Landry [facility] Start: 10-12-2022 End: 10-12-2022 Emergency department patient visit Santos Landry [facility] Start: 10-02-2022 End: 10-02-2022 Patient encounter procedure Inessa Grajeda [facility] Start: 09-14-2022 End: 11-01-2022 Pre-admission assessment Zulema CRAMER [facility] Start: 09-10-2022 End: 09-11-[address] FREDERICK MAHARAJ . Facility:[facility] Start: 09-06-2022 End: 09-06-2022 Patient encounter procedure Zulema CRAMER [facility] Start: 09-04-2022 End: 09-04-2022 ambulatory Valarie Javier Other [employer] Other Start: 09-04-2022 Telephone encounter Valarie Javier [facility] Start: 08-10-2022 ambulatory ELIUD JAJA Facility :[facility] Start: 08-06-2022 End: 08-07-[address] FREDERICK MAHARAJ . Facility:[facility] Start: 07-05-2022 End: 07-05-2022 ambulatory Valarie Javier Other [employer] Other Start: 07-05-2022 Office outpatient vi sit 25 minutes Valarie Javier [facility] Start: 07-04-2022 End: 07-05-2022 ambulatory VALARIE JAVIER Facility:[facility] Start: 07-03-2022 End: 07-03-[address] SOLO CHA . Facility:[facility] Start: 06-26-2022 End: 11-28-2022 Recurring Zulema CRAMER [facility] Start: 06-08-2022 End: 06-09-[address] DOCTOR GALLO Facility:[facility] Start: 05-15-2022 End: 05-15-2022 Patient encounter procedure Cady CALIX [facility] Start: 05-09-2022 End: 09-09-2022 Recurring Zulema CRAMER [facility] Start: 05-09-2022 End: 06-19-2022 Pre-admission assessment Zulema CRAMER [facility] Start: 04-30-2022 End: 05-01-[address] ROBERT GIRON Facility:[facility] Start: 04-09-2022 End: 05-02-2022 Pre-admission assessment Donaldo PEARSON [facility] Start: 04-06-2022 End: 04-07-2022 ambulatory ELIUD JAJA Facility:[facility] Start: 04-01-2022 End: 04-01-2022 ambulatory JAMAR CAROLA . Facility:[facility] Start: 03-28-2022 End: 03-29-[address] DOCTOR GALLO Facility:[facility] Start: 03-20-2022 End: 03-20-2022 Patient encounter procedure Elliott oSlis [facility] Start: 03-13-2022 End: 03-13-2022 ambulatory JAMAR SRIVASTAVA . Facility:[facility] Start: 03-06-2022 End: 09-07-2022 Pre-admission assessment Elliott Solis [facility] Start: 03-06-2022 End: 03-06-2022 Patient encounter procedure Cady CALIX [facility] Start: 02-08-2022 End: 06-20-2022 Recurring Zulema CRAMER [facility] Start: 02-08-2022 End: 02-09-2022 Pre-admission assessment Zulema CRAMER [facility] Start: 02-01-2022 End: 02-01-2022 Patient encounter procedure Zulema CRAMER [facility] Start: 01-11-2022 End: 05-02-2022 Recurring Zulema CRAMER [facility] Start: 01-11-2022 End: 01-11-2022 Patient encounter procedure Zulema CRAMER [facility] Start: 12-20-2021 End: 03-22-2022 Recurring Zulema CRAMER [facility] Start: 12-11-2021 End: 12-11-2021 Patient encounter procedure Donaldo PEARSON [facility] Start: 11-21-2021 End: 11-21-2021 Patient encounter procedure Inessa Grajeda [facility] Start: 10-12-2021 End: 01-30-2022 Recurring Martin Arango [facility] Procedures Date Procedure Procedure Detail Performing Clinician Start: 03-31-2024 CT of lungs DO Robert Giron Work Phone: Start: 12-13-2023 Follow-up visit Follow-up JOEL ALSTON Start: 12-11-2023 Epidural injection of lumbar spine using fluoroscopic guidance Cady Alva Comment on above: L4-L5 no relief, made worse Start: 10-03-2023 Adult depression screening assessment Robertmarcos Carmencadence DO Work Phone: Start: 09-27-2023 Mammography Robert Giron DO Work Phone: Start: 06-20-2023 Adult depression screening assessment Robert Giron DO Work Phone: Start: 04-03-2023 CT of lungs DO Robert Giron Work Phone: Start: 01-21-2023 Colonoscopy Robert Worthyng DO Work Phone: Start: 01-17-2023 Colonoscopy Zulema CRAMER Start: 11-21-2022 Hammer toe (disorder) Martin Brown Start: 11-21-2022 Metatarsal bone structure (body structure) Martin Brown Start: 10-22-2022 Microalbumin [Mass/volume] in Urine by Test strip Robert Giron DO Work Phone: Start: 09-10-2022 Mammography Robert Giron DO Work Phone: Start: 03-29-2022 Esophagogastroduodenoscopy Zulema CRAMER Comment on above: esophageal dilation, small gastric bezoa r Start: 11-08-2021 Peroneal tendon (body structure) Inessa Wallis Comment on above: right peroneal tendon repair with synove ctomy Start: 06-26-2021 Esophagogastroduodenoscopy Inessa Nella amber Comment on above: dilation Start: 05-16-2021 Urodynamic studies Inessa Grajeda Start: 03-14-2020 Colonoscopy Inessa Grajeda Start: 03-03-2020 Catheterization of left heart Inessa Nella koehler Comment on above: diagnostic Start: 10-22-2018 [...] Downs tz Colonoscopy Inessa Grajeda Colonoscopy Poolevenu CRAMER Cystopexy Inessa Grajeda Decompression of median nerve Inessa Grajeda Comment on above: x 2 Decompression of ulnar nerve Inessa Grajeda Comment on above: x 2 Esophagogastroduodenoscopy B eth Nicci Esophagogastroduodenoscopy M aher SALAM Comment on above: Antral erosions Excision of ganglion cyst Be Nicci Extracorporeal shock wave lithotripsy of calculus of kidney Inessa Grajeda History of decompres anna of median nerve History of carpal tunnel surgery DO Robert Giron Work Phone: Hysterectomy Inessa Grajeda ingrown toenail removal 10 M aher [employer] Comment on above: x3 ingrown toenail removal 11 M [employer] Comment on above: x3 ingrown toenail removal 12 A gabriele [employer] Comment on above: x3 ingrown toenail removal [...] 2 Ulnar nerve at elbow (body structure) Martindariana Arango Plan of Treatment Date Care Activity Detail Author Start: 01-21-2033 Screening for malignant neoplasm of colon Colonoscopy [facility] Start: 01-05-2025 ambulatory Ambulatory Facility: [place] Start: 10-03-2024 Adult BMI Screening Adult BMI Screening [facility] Start: 10-03-2024 Depression Screening Depression Screening [facility] Start: 10-03-2024 Tobacco Screening Tobacco Screening [facility] Start: 09-27-2024 Screening for malignant neoplasm of breast Mammogram [facility] Start: 08-05-2024 Adult BMI Screening Adult BMI Screening [facility] Start: 08-05-2024 Tobacco Screening Tobacco Screening [facility] Start: 07-10-2024 Adult BMI Follow Up Plan Adult BMI Follow Up Plan [facility] Start: 07-08-2024 Diabetic foot examination Diabetic Foot Exam [facility] Start: 06-20-2024 Depression Screening Depression Screening [facility] Start: 04-19-2024 Influenza vaccination Influenza Vaccine [facility] Start: 10-28-2023 End: 10-28-2023 Patient encounter procedure 10/28/2023 3:20 PM EDT Office Visit [facility] [address] [place] [address] Nuria Sanchez MD [address] [facility] [address] [address] [facility] Start: 10-23-2023 Urine screening for protein Urine Microalbumin [facility] Start: 10-17-2023 End: 10-17-2023 Patient encounter procedure [facility] Start: 10-09-2023 End: 10-09-2023 Patient encounter procedure 10/09/2023 8:30 AM EST Procedure Visit [facility] Martin Arango, MERLEM [address] [facility] [address] [place] [address] [facility] Start: 10-03-2023 End: 10-03-2023 Patient encounter procedure 10/03/2023 3:40 PM EST Office [facility] [address] [place] [id number] Robert Giron, [address], [facility] [place] [address] [facility] Start: 09-26-2023 End: 09-26-2023 Patient encounter procedure 09/26/2023 3:10 PM EST Office Visit [facility] [address] [facility] [address] [place] [id number] Martin Arango DPM [address] [facility] [address] [address] [place] [address] [facility] Start: 09-16-2023 End: 09-16-2023 ambulatory 09/16/2023 8:30 AM EST Monitor [facility] Monitor [address] [place] [id number] [facility] Start: 09-10-2023 Screening for malignant neoplasm of breast Mammogram [facility] Start: 2020 Administration of varicella zoster vaccine Zoster (Shingles) Vaccine (1 of 2) [facility] Start: 1989 DTaP,Tdap and Td Vaccines (1 - Tdap) DTaP,Tdap and Td Vaccines (1 - Tdap) [facility] Start: 1970 Glaucoma screening Diabetic Ophthalmology Exam [facility] Immunizations Immunization Date Immunization Notes Care Provider Fa cility 06-24-2023 Covid-19,mrna, Lnp-s , Pf, 50mcg/0.5ml 12+ Robert Giron DO Work Phone: [facility] 06-24-2023 influenza virus vaccine, unspecified formulation POLLY MARIANO [facility] 04-15-2020 influenza virus vaccine, unspecified formulation Cadyblaine CALIX [facility] 06-02-2019 hepatitis A vaccine, adult dosage Cady STANG [facility] 11-21-2018 hepatitis A vaccine, adult dosage Cady STANG [facility] NEGATED: Highlighted row has not occurred!04-29-2023 influenza virus vaccine, unspecified formulation Cady STANG [facility] NEGATED: Highlighted row has not occurred!10-29-2022 influenza virus vaccine, unspecified formulation Inessa Grajeda [facility] NEGATED: Highlighted row has not occurred!09-14-2022 influenza virus vaccine, unspecified formulation Inessa Grajeda [facility] NEGATED: Highlighted row has not occurred!05-09-2022 influenza virus vaccine, unspecified formulation Cady CALIX [facility] NEGATED: Highlighted row has not occurred!12-11-2021 influenza virus vaccine, unspecified formulation Donaldo PEARSON [facility] NEGATED: Highlighted row has not occurred!12-11-2021 SARS-CoV-2 (COVID-19) Ad26 vaccine, recombinant Donaldo PEARSON [facility] NEGATED: Highlighted row has not occurred!11-07-2021 influenza virus vaccine, unspecified formulation Inessa Grajeda [facility] NEGATED: Highlighted row has not occurred!09-04-2021 SARS-CoV-2 (COVID-19) Ad26 vaccine, recombinant Inessa Grajeda [facility] Payers Date Payer Category Payer Self-pay [id number] 2017 Medicaid [id number] 1970 Unknown [id number] 2.16.84 0.1.802561.3.579.2.593 1970 Unknown [id number] 2.16.84 0.1.285101.3.579.2.593 1970 Unknown [id number] 2.16.84 0.1.356860.3.579.2.593 1970 Unknown [id number] 2.16.84 0.1.394619.3.579.2.593 1970 Unknown [id number] 2.16.84 0.1.445027.3.579.2.593 1970 Unknown [id number] 2.16.84 0.1.702000.3.579.2.593 1970 Unknown [id number] 2.16.84 0.1.707325.3.579.2.593 1970 Unknown [id number] 2.16.84 0.1.249296.3.579.2.593 1970 Unknown [id number] 2.16.84 0.1.782962.3.579.2.593 1970 Unknown [id number] 2.16.84 0.1.873745.3.579.2.593 1970 Unknown [id number] 2.16.84 0.1.061736.3.579.2.593 1970 Unknown [id number] 2.16.84 0.1.408929.3.579.2.593 1970 Unknown [id number] 2.16.84 0.1.515873.3.579.2.593 1970 Unknown [id number] 2.16.84 0.1.062992.3.579.2.593 1970 Unknown [id number] 2.16.84 0.1.405885.3.579.2.593 1970 Unknown [id number] 2.16.8 40.1.920308.3.579.2.176 1970 Unknown [id number] 2.16.8 40.1.882067.3.579.2.1286 1970 Unknown [id number] 2.16.8 40.1.923031.3.579.2.1286 1970 Unknown [id number] 2.16.8 40.1.160139.3.579.2.1286 1970 Unknown [id number] 2.16.8 40.1.548086.3.579.2.1286 1970 Unknown [id number] 2.16.8 40.1.900095.3.579.2.1286 1970 Unknown [id number] 2.16.8 40.1.827594.3.579.2.1286 1970 Unknown [id number] 2.16.8 40.1.720958.3.579.2.727 1970 Unknown [id number] 2.16.8 40.1.020342.3.579.2.727 1970 Unknown [id number] 2.16.8 40.1.474335.3.579.2.727 1970 Unknown [id number] 2.16.8 40.1.834805.3.579.2.727 1970 Unknown [id number] 2.16.8 40.1.186745.3.579.2.727 1970 Unknown [id number] 2.16.8 40.1.822987.3.579.2.727 1970 Unknown [id number] 2.16.8 40.1.551393.3.579.2.727 1970 Unknown [id number] 2.16.8 40.1.766437.3.579.2.727 1970 Unknown [id number] 2.16.8 40.1.238615.3.579.2.727 1970 Unknown [id number] 2.16.8 40.1.784085.3.579.2.727 1970 Unknown [id number] 2.16.8 40.1.262677.3.579.2.72 1970 Unknown [id number] 2.16.8 40.1.181460.3.579.2.727 1970 Unknown [id number] 2.16.8 40.1.058481.3.579.2.727 1970 Unknown [id number] 2.16.8 40.1.614173.3.579.2.727 1970 Unknown [id number] 2.16.8 40.1.235791.3.579.2.727 1970 Unknown [id number] 2.16.8 40.1.029924.3.579.2.1286 1970 Unknown [id number] 2.16.8 40.1.576103.3.579.2.1286 1970 Unknown [id number] 2.16.8 40.1.313372.3.579.2.1286 1970 Unknown [id number] 2.16.8 40.1.828918.3.579.2.6 1970 Unknown [id number] 2.16.8 40.1.590746.3.579.2.1286 1970 Unknown [id number] 2.16.8 40.1.301935.3.579.2.6 1970 Unknown [id number] 2.16.8 40.1.954966.3.579.2.1286 1970 Unknown [id number] 2.16.8 40.1.641449.3.579.2.1286 1970 Unknown [id number] 2.16.840 .1.833603.3.579.2.1286 1970 Unknown [id number] 2.16.840 .1.430013.3.579.2.1286 1970 Unknown [id number] 2.16.84 0.1.596941.3.579.2.1259 1970 Unknown [id number] 2.16.84 0.1.322981.3.579.2.1259 1970 Unknown [id number] 2.16.84 0.1.504469.3.579.2.1259 1970 Unknown [id number] 2.16.84 0.1.586620.3.579.2.1259 1970 Unknown [id number] 2.16.84 0.1.954008.3.579.2.1259 1970 Unknown [id number] 2.16.84 0.1.144099.3.579.2.1259 1970 Unknown [id number] 2.16.84 0.1.330322.3.579.2.1259 1970 Unknown [id number] 2.16.84 0.1.775364.3.579.2.9 1970 Unknown [id number] 2.16.84 0.1.865518.3.579.2.9 1970 Unknown [id number] 2.16.84 0.1.053464.3.579.2.9 1970 Unknown [id number] 2.16.84 0.1.303812.3.579.2.9 1970 Unknown [id number] 2.16.84 0.1.783193.3.579.2.9 1970 Unknown [id number] 2.16.84 0.1.945319.3.579.2.1259 1970 Unknown [id number] 2.16.84 0.1.208975.3.579.2.9 1970 Unknown [id number] 2.16.84 0.1.977733.3.579.2.9 1970 Unknown [id number] 2.16.84 0.1.665115.3.579.2.9 1970 Unknown [id number] 2.16.84 0.1.845411.3.579.2.1259 1970 Unknown [id number] 2.16.84 0.1.031199.3.579.2.1259 1970 Unknown [id number] 2.16.84 0.1.156772.3.579.2.1259 1970 Unknown [id number] 2.16.84 0.1.049938.3.579.2.1259 1970 Unknown [id number] 2.16.84 0.1.613780.3.579.2.1259 1970 Unknown [id number] 2.16.84 0.1.841148.3.579.2.1259 1970 Unknown [id number] 2.16.84 0.1.059024.3.579.2.1259 1970 Unknown [id number] 2.16.84 0.1.228694.3.579.2.9 1970 Unknown [id number] 2.16.84 0.1.101861.3.579.2.1259 1970 Unknown [id number] 2.16.84 0.1.030817.3.579.2.9 1970 Unknown [id number] 2.16.84 0.1.649862.3.579.2.9 1970 Unknown [id number] 2.16.84 0.1.434262.3.579.2.9 1970 Unknown [id number] 2.16.84 0.1.689793.3.579.2.9 1970 Unknown [id number] 2.16.84 0.1.556528.3.579.2.9 1970 Unknown [id number] 2.16.840 .1.085475.3.579.2.1258 1970 Unknown [id number] 2.16.840 .1.819627.3.579.2.1258 1970 Unknown [id number] 2.16.840 .1.719697.3.579.2.1259 1970 Unknown [id number] 2.16.840 .1.968106.3.579.2.1258 1970 Unknown [id number] 2.16.840 .1.535003.3.579.2.9 1970 Unknown [id number] 2.16.840 .1.075677.3.579.2.1258 1970 Unknown [id number] 2.16.840 .1.612028.3.579.2.1259 1970 Unknown [id number] 2.16.840 .1.094801.3.579.2.1259 1970 Unknown [id number] 2.16.840 .1.575183.3.579.2.1259 1959 Medicaid [id number] 1959 Private Health Insurance [id number] 1959 Unknown [id number] 1959 Unknown [id number] Unknown [id number] 2.16.8 40.1.185541.3.579.2.531 Social History Date Type Detail Facility Start: 11-07-2021 End: 01-30-2024 Tobacco smoking status Heavy tobacco smoker (finding) [facility] Comment on above: 1 pack per day smoke r Start: 01-24-2023 End: 07-08-2023 Sex Assigned At Female [facility] Tobacco [facility] Comment on above: 1 ppd smokes 1 ppd. Tobacco smoking status Never [facility] Start: 1970 Sex Assigned At Female F [facility] Tobacco smoking status No Smokin g Status Entered [facility] Start: 01-04-2022 End: 04-15-2023 Tobacco smoking status NHIS Smoker (finding) [facility] Start: 07-08-2023 Tobacco smoking stat us NHIS Ex-smoker [facility] End: 04-15-2023 History of tobacco use Cigarette Smoker [facility] NOZA [facility] Start: 01-24-2023 End: 07-08-2023 Cigarettes smoked current (pack per day) - Reported 0.8 [facility] NOZA [facility] Start: 06-20-2023 End: 07-08-2023 Tobacco use and exposure Smokeless tobacco non-user [facility] Start: 08-05-2023 End: 10-03-2023 Alcohol intake Ex-drinker (finding) [facility] Has the electric, [employer] s, oil, or water company threatened to shut off services in your home in past 12Mo No [facility] Are you now , , , , never or living with a partner? [facility] How often to you hav e a drink containing alcohol? Monthly or less [facility] How many standard drinks containing alcohol do you have on a typical day? 3 or 4 [facility] How often do you hav e 6 or more drinks on 1 occasion? Never [facility] How hard is it for y ou to pay for the very basics like food, housing, medical care, and heating Not very hard [facility] Do you feel stress - tense, restless, nervous, or anxious, or unable to sleep at night because your mind is troubled all the time - these days [OSQ] To some extent [facility] Start: 07-08-2023 Tobacco Comment Smoke 1 PPD x 10 yea rs [facility] Start: 1970 Sex Assigned At Not on file P [facility] Start: 06-20-2023 Tobacco smoking stat [facility] Smokes tobacco daily [facility] History of tobacco use Passive smoker [facility] Start: 02-21-2023 Alcohol Comment caffeine 1-2 c ups per day [facility] Medical Equipment Procedure Code Equipment Code Equipment Origin al Text Equipment Identifier Dates Phacoemulsification of cataract with intraocular lens implantation Posterior-chamber intraocular lens, pseudophakic ()[id number] FDA Start: 12-14-2021 Phacoemulsification of cataract with intraocular lens implantation Posterior-chamber intraocular lens, pseudophakic ()[id number] FDA Start: 01-04-2022 HAMMERTOE REPAIR Harsh DPNnamdi, Martin A 11/21/22 Non Biological Foot R FDA Start: 11-21-2022 HAMMERTOE REPAIR Brown DPM, Martin A 11/21/22 Non Biological Foot R FDA Start: 11-21-2022 HAMMERTOE REPAIR Harsh DPM, Martin A 11/21/22 Non Biological Foot [...] 11-21-2022 Functional Status Date Assessment Result Facility 03-05-2024 Functional Status N/A [facility] 01-30-2024 Functional Status N/A [facility] 01-15-2024 Functional Status N/A [facility] 01-01-2024 Functional Status N/A [facility] 12-31-2023 Functional Status N/A [facility] 11-06-2023 Functional Status N/A [facility] 09-17-2023 Functional Status N/A [facility] 07-25-2023 Functional Status No [facility] 07-05-2023 Functional Status No [facility] 05-20-2023 Functional Status No [facility] 01-17-2023 Functional Status N/A [facility] 10-30-2022 Functional Status No [facility] 10-29-2022 Functional Status N/A [facility] 10-20-2022 Functional Status N/A [facility] 10-12-2022 Functional Status N/A [facility] 10-02-2022 Functional Status N/A [facility] 09-06-2022 Functional Status N/A [facility] 05-15-2022 Functional Status No [facility] 03-06-2022 Functional Status N/A [facility] Clinical Notes 04-19-2021 to 03-05-2024 Note Date & Type Note Facility 03-05-2024 Note Consultation Note Patient is presenting with a longstanding history of fibromyalgia as well as lumbar stenosis with neurogenic claudication lumbar radiculopathy. She has pain throughout entire body. She rates this as an 8/10 but can be a 10/10. Nothing particular alleviates or exacerbates her pain. She has a significant list of allergies and many medications have not worked. She has iterated in the past and she is primarily interested in opioid-based therapy. We discussed that unfortunately in the setting of fibromyalgia as well as with her yomaira mitten use of a benzodiazepine that would not be the best therapy for treating her pain. Unfortunately medication options are very limited in the setting. We discussed that low-dose naltrexone may be a reasonable medication to try as well. She has not initiated therapy as discussed at last visit. We encouraged her to initiate therapy. TU Score: 64% PHQ-2: 2 Patient denies any symptoms of progressively worsening upper/lower extremity weakness, progressively worsening gait abnormality, new onset bowel/bladder incontinence/ urinary retention, or saddle anesthesia. No new or worsening symptoms of fever, chills, night sweats. 14 Point Review of systems negative unless otherwise noted. General: No acute distress. Patient appears well-nourished. HEENT: Head is normocephalic and external ears are normal in appearance. Cardiovascular: No signs of poor perfusion and no peripheral edema Pulmonary: Nonlabored breathing, symmetric chest movement. GI: Abdomen nondistended Integumentary: No lesions Neurologic: Alert, oriented x3. 5/5 strength grossly in the bilateral upper extremities. Sensation intact to light touch in the bilateral upper extremities. 5/5 strength grossly in the bilateral lower extremities. Sensation intact to light touch in the bilateral lower extremities. MSK/Special Testing: Negative Jeffery sign bilaterally, seated straight leg raise test did reproduce mild radicular symptoms bilaterally. Multiple tender spots throughout entire body. History, physical examination, and personal review of pertinent imaging results indicate a diagnosis of: -Lumbar stenosis with neurogenic claudication -Lumbar radiculopathy -Fibromyalgia Plan: -We lengthy discussion about her current pain symptoms as well as the appropriateness of opioids and chronic pain particularly in the setting of fibromyalgia. We discussed that opioid-based medication would not be the most appropriate therapy and she is also on a benzodiazepine. We discussed that she will be on a nonnarcotic treatment plan with our clinic. For her fibromyalgia based pain we discussed a trial of low-dose naltrexone 1.5 mg daily to treat her pain symptoms -We encourage follow-up with physical therapy as well as her surgeons to discuss surgical options for some of her persistent pain areas -Follow-up in 6 months or sooner if any issues arise Patient was counseled on the above diagnosis and treatment, all questions were answered and patient agrees to adhere to the plan above. Risk and benefits of appropriate procedures and medications were reviewed as well with patient, who voiced understanding and agreeance. Patient was counseled on appropriate use of opioids if prescribed or renewed today and naloxone was offered to patient if opioids were prescribed or maintained at this visit. PHQ-2 scoring reviewed with patient and discussed seeking treatment for depression or mood disorder as appropriate. Patient was counseled on smoking cessation and/or continuing to abstain from nicotine/tobacco products as appropriate based on history; as smoking/nicotine can contribute to increased pain overall and decreased wound healing. Patient counseled on maintaining a healthy BMI as part of the total treatment of their pain and to reduce stress/strain on joints. Patient invited to return or call with any questions or concerns that arise. [facility] Comment on above: Result Comment: Elec tronically Signed By: Andrew Eid DO\.br\Date and Time Signed: 03/05/24 15:55 EDT 03-05-2024 Evaluation + Plan note Extrac emeterio from: Title:chronic pain Author:Andrew Eid DO Date:03/05/24 Patient is presenting with a longstanding history of fibromyalgia as well as lumbar stenosis with neurogenic claudication lumbar radiculopathy. She has pain throughout entire body. She rates this as an 8/10 but can be a 10/10. Nothing particular alleviates or exacerbates her pain. She has a significant list of allergies and many medications have not worked. She has iterated in the past and she is primarily interested in opioid-based therapy. We discussed that unfortunately in the setting of fibromyalgia as well as with her yomaira mitten use of a benzodiazepine that would not be the best therapy for treating her pain. Unfortunately medication options are very limited in the setting. We discussed that low-dose naltrexone may be a reasonable medication to try as well. She has not initiated therapy as discussed at last visit. We encouraged her to initiate therapy. TU Score: 64% PHQ-2: 2 Patient denies any symptoms of progressively worsening upper/lower extremity weakness, progressively worsening gait abnormality, new onset bowel/bladder incontinence/ urinary retention, or saddle anesthesia. No new or worsening symptoms of fever, chills, night sweats. 14 Point Review of systems negative unless otherwise noted. General: No acute distress. Patient appears well-nourished. HEENT: Head is normocephalic and external ears are normal in appearance. Cardiovascular: No signs of poor perfusion and no peripheral edema Pulmonary: Nonlabored breathing, symmetric chest movement. GI: Abdomen nondistended Integumentary: No lesions Neurologic: Alert, oriented x3. 5/5 strength grossly in the bilateral upper extremities. Sensation intact to light touch in the bilateral upper extremities. 5/5 strength grossly in the bilateral lower extremities. Sensation intact to light touch in the bilateral lower extremities. MSK/Special Testing: Negative Jeffery sign bilaterally, seated straight leg raise test did reproduce mild radicular symptoms bilaterally. Multiple tender spots throughout entire body. History, physical examination, and personal review of pertinent imaging results indicate a diagnosis of: -Lumbar stenosis with neurogenic claudication -Lumbar radiculopathy -Fibromyalgia Plan: -We lengthy discussion about her current pain symptoms as well as the appropriateness of opioids and chronic pain particularly in the setting of fibromyalgia. We discussed that opioid-based medication would not be the most appropriate therapy and she is also on a benzodiazepine. We discussed that she will be on a nonnarcotic treatment plan with our clinic. For her fibromyalgia based pain we discussed a trial of low-dose naltrexone 1.5 mg daily to treat her pain symptoms -We encourage follow-up with physical therapy as well as her surgeons to discuss surgical options for some of her persistent pain areas -Follow-up in 6 months or sooner if any issues arise Patient was counseled on the above diagnosis and treatment, all questions were answered and patient agrees to adhere to the plan above. Risk and benefits of appropriate procedures and medications were reviewed as well with patient, who voiced understanding and agreeance. Patient was counseled on appropriate use of opioids if prescribed or renewed today and naloxone was offered to patient if opioids were prescribed or maintained at this visit. PHQ-2 scoring reviewed with patient and discussed seeking treatment for depression or mood disorder as appropriate. Patient was counseled on smoking cessation and/or continuing to abstain from nicotine/tobacco products as appropriate based on history; as smoking/nicotine can contribute to increased pain overall and decreased wound healing. Patient counseled on maintaining a healthy BMI as part of the total treatment of their pain and to reduce stress/strain on joints. Patient invited to return or call with any questions or concerns that arise. Future Appointments Appointment Date:07/30/2024 01:45:00 PM Scheduled Provider:Kehinde Davalos MD [facility] Type:Cardiology Follow Up (FT) Appointment Date:01/05/2025 01:00:00 PM Scheduled Provider:POLLY MARIANO PA-C Location:[facility] Appointment Type:URO Office Visit Future Scheduled Tests Radiology* Echo Transthoracic Complete 05/20/23 [facility]05-29-2024 Evaluation + Plan noteExtracted from: Title:Pain Managment Follow up Author:Cady Baires Date:01/15/24 Impression and Plan Patient is a 53-year-old female with a past medical history significant for fibromyalgia, lumbar stenosis, lumbar neuritis, neck pain and cervical neuritis. In regards to her fibromyalgia we had a long throughout her pain and medications. We discussed on nonopiate treatment. At this time, I would recommend she be treated on a nonnarcotic basis due to her OARRS and her use the medications and all of her allergies. She voiced understanding. I discussed with her a second opinion but at this time she does not want to do this. We discussed Butrans patch. 5 mcg patches will be sent to her pharmacy. She will keep this on for a week and change it weekly thereafter. In regards to her lumbar stenosis she has an appointment with a surgeon in regards to her neck pain and cervical neuritis we discussed therapy once again. I would recommend her to start this as she has not yet done so. Follow-up in 1 month. Call clinic sooner if necessary. TU score: 72%. Future Appointments Appointment Date:01/30/2024 02:15:00 PM Scheduled Provider:En Carmen PA-C [facility] Type:Cardiology Follow Up (FT) Appointment Date:03/05/2024 03:30:00 PM Scheduled Provider:Andrew Eid DO [facility] Type:Pain Management - Follow Up (FT) Appointment Date:01/05/2025 01:00:00 PM Scheduled Provider:POLLY MARIANO PA-C Location:[facility] Appointment Type:URO Office Visit Future Scheduled Tests Laboratory* Pancreatic Elastase, Fecal 01/29/23 * Fecal WBC Lactoferrin 01/29/23 * Giardia lamblia, Direct Detection EIA 01/29/23 * O & P Exam, Routine 01/29/23 * Clostridium Difficile PCR 01/29/23 * Enteric Panel by PCR 01/29/23 Radiology* Echo Transthoracic Complete 05/20/23 [facility]05-15-2024 Evaluation + Plan noteExtracted from: Title:Pain Managment Follow up Author:Cady Baires [...] Date:01/30/2024 02:15:00 PM Scheduled Provider:En Carmen PA-C Location[facility] Appointment Type:Cardiology Follow Up (FT) Appointment Date:02/26/2024 11:15:00 AM Scheduled Provider:Andrew Eid DO Location:.[facility] Appointment Type:Pain Management - Follow Up (FT) Appointment Date:01/05/2025 01:00:00 PM Scheduled Provider:POLLY MARIANO PA-C Location:[facility] Appointment Type:URO Office Visit Future Scheduled Tests Laboratory* Pancreatic Elastase, Fecal 01/29/23 * Fecal WBC Lactoferrin 01/29/23 * Giardia lamblia, Direct Detection EIA 01/29/23 * O & P Exam, Routine 01/29/23 * Clostridium Difficile PCR 01/29/23 * Enteric Panel by PCR 01/29/23 Radiology* Echo Transthoracic Complete 05/20/23 [facility]05-14-2024 Hospital Discharge instructions Patient Education 12/31/2023 12:57:29 [...] nerve stimulation). ?For women, using a medical collections representative to prevent urine leaks. This is a [...] right after experiencing incontinence. General instructions Take pvzc-byp-xupexen and prescription medicines only as told by [...] important. Where to find more information National [place] of Diabetes and Digestive and Kidney Diseases: www.niddk.nih.gov [employer] [employer]: www.urologyhealth.org Contact a health care [...] provider. Document Revised: 03/10/2021 Document Reviewed: 03/10/2021 [employer] Patient Education 2022 Packet Design. Follow Up Care 09/17/2023 08:57:54 With:POLLY MARIANO PA-C, URL Address: [address] [facility] [place] [address] When: Unknown [facility] 04-24-2024 Note [id number] NoteDiagnosis: M54.16, lumbar radiculopathy Procedure: [...] the epidural space was confirmed using the qvmu-dc-rhpqtwpuhu technique and 2 cc of air. Injection [...] procedure, and agrees to continue currently prescribed/recommended therapies.[facility] Comment on above:Result Comment: Electronically Signed By: Andrew Eid DO\.br\Date and Time Signed: 12/11/23 09:29 [id number] Evaluation + Plan note Extracted from: Title:L4/5 [...] the epidural space was confirmed using the ytjo-ko-qyrlwufgyy technique and 2 cc of air. Injection [...] Date:12/31/2023 01:00:00 PM Scheduled Provider:POLLY MARIANO PA-C Location:[facility] Appointment Type:URO Office Visit Appointment Date:01/01/2024 11:00:00 AM Scheduled Provider:Cady Alva PA-C Location:[facility] Appointment Type:Pain Management - Follow Up (FT) Future Scheduled Tests Laboratory* Pancreatic Elastase, Fecal 01/29/23 * Fecal WBC Lactoferrin 01/29/23 * Giardia lamblia, Direct Detection EIA 01/29/23 * O & P Exam, Routine 01/29/23 * Clostridium Difficile PCR 01/29/23 * Enteric Panel by PCR 01/29/23 * CBC w/ Auto Diff 12/25/22 * Comprehensive Metabolic Panel 12/25/22 Radiology* Echo Transthoracic Complete 05/20/23 [facility]03-20-2024 Evaluation + Plan noteExtracted from: Title:Pain Managment [...] Date:12/31/2023 01:00:00 PM Scheduled Provider:POLLY MARIANO PA-C Location:[facility] Appointment Type:URO Office Visit Future Scheduled Tests Laboratory* Pancreatic Elastase, Fecal 01/29/23 * Fecal WBC Lactoferrin 01/29/23 * Giardia lamblia, Direct Detection EIA 01/29/23 * O & P Exam, Routine 01/29/23 * Clostridium Difficile PCR 01/29/23 * Enteric Panel by PCR 01/29/23 * CBC w/ Auto Diff 12/25/22 * Comprehensive Metabolic Panel 12/25/22 Radiology* Echo Transthoracic Complete 05/20/23 [facility]03-15-2024 History of Present illness Narrative* Fiona Rockwell APRN-DELORES - 11/01/2023 12:30 PM EDT The OARRS/MAPPS database was reviewed today and found to be appropriate. No indication of medication diversion, or non compliance. Fiona Rockwell APRN-DELORES 11/01/23 1231 documented in this encounterOhio[facility] History of Present illness Narrative* Robert Giron, [...] last A1c was 6.5%. She saw her furrier designer who medically cleared her. She had a [...] ear normal. Nose: Nose normal. Mouth/Throat: Lips: [place]. Mouth: Mucous membranes are moist. Pharynx: Oropharynx [...] Hallux valgus of right foot Follow-up with automatic nailing machine operator for surgery. Essential hypertension Blood pressure at goal. Take medications with a sip of water in the morning. Diabetic peripheral neuropathy (CMS-HCC) At goal. documented in this encounterOhioHealth [facility] Hospital02-09-2024 Miscellaneous Notes* Telephone Encounter - Anjelica Rutledge - 09/27/2023 8:08 AM EST Patient left message requesting if she can get refill of Tramadol. Please advise. [phone] documented in this encounterMineral Area Regional Medical [id number] Telephone encounter Note* Telephone Encounter - Anjelica Rutledge - 09/27/2023 8:08 AM EST Patient left message requesting if she can get refill of Tramadol. Please advise. [phone] [facility] [id number] History of Present illness Narrative* Martin Arango DPM - 09/26/2023 3:10 PM EST Patient: [...] Behavior, Mental Status Change, other, Vomiting hallucinate [place] Saline Nasal Gel [Aloe-Sodium Chloride] Facial numbness/tongue [...] History: Past Medical History: Diagnosis Date Asthma ([facility]) Bipolar disorder ([facility]) Bunion COPD (chronic obstructive pulmonary disease) ([facility]) Depression ([facility]) Diabetes ([facility]) Difficulty walking Fallen arches Fibromyalgia Hammer toe Kidney stones Migraine ([facility]) Mitral valve prolapse Downey's neuroma Onychomycosis [...] time., Disp: , Rfl: Continuous Blood Gluc Supervisory Air Intercept Controller (Dexcom G6 clay house worker) device, 1 UNIT YEARLY, Disp: , Rfl: Continuous Blood Gluc Sensor (Dexcom G6 Sensor) [facility], USE 1 UNIT DIRECTED AND CHANGE EVERY 10 DAYS, Disp: , Rfl: ergocalciferol (Vitamin D2) 1.25 MG (75103 UT) capsule, Take 1 capsule by mouth [...] oral route., Disp: , Rfl: nystatin (Mycostatin) 003181 UNIT/ML suspension, TAKE 5ML FOUR TIMES A [...] breath with positive history of tachycardia seeing furrier designer for this Pulmonary: Positive history of shortness [...] polyneuropathy, with long-term current use of insulin ([facility]) 4. Contracture of right ankle 5. [...] risks, alternatives, benefits, post op complications and termite control service representative expectations were discussed including but not limited to: infection,bone infection,wound dehiscence hardware failure and irritation,wound dehiscence,delay union/mal union/non union of bone. RSDS,neuroma,duty limitations,DVT/PE, SD,nerve damage, scar, loss of sensation, swelling. Pt [...] with an ASA of a 3. Martin Brown , DPM, FACFAS September 26, 2023 H&P up to date and current (date) documented in this encounterMineral Area Regional Medical [id number] Hospital Discharge instructions Patient Education 09/17/2023 08:52:34 [...] Follow these instructions at home: Medicines Take blrf-dex-peehian and prescription medicines only as told by [...] or the blood stops without treatment. Take zvzr-hqs-ecinweu and prescription medicines only as told by your health care provider. Drink enough fluid to keep your urine pale yellow. This information is not intended to replace advice given to you by your health care provider. Make sure you discuss any questions you have with your health care provider. Document Revised: 04/05/2021 Document Reviewed: 04/05/2021 [employer] Patient Education 2022 Packet Design. Follow Up Care 06/13/2023 09:13:04 With:YUDY NORRIS, POLLY Kaminski, URL Address: [address] [place] [address] [phone] When: Unknown Comments:3 mos (restart med) [facility] 01-09-2024 Evaluation note* Encounter Date Diagnosis Assessment Notes Treatment Notes Treatment Clinical Notes Aug, Chronic obstructive pulmonary disease, unspecified (ICD-10 - J44.9) Aug, Tobacco abuse (ICD-1 0 - Z72.0) Stop smoking. Chest CT in 03/2023 showed emphysema, no nodules. Next LDCT screening will be scheduled for 2023. Aug, Diastolic dysfunctio n (ICD-10 - I51.9) Aug, Nicotine dependence, cigarettes, uncomplicated (ICD-10 - F17.210) [employer] Other 12-07-2023 NotePROCEDURE: CARDIAC EVENT MONITOR 14 [...] BY: Yandel Jett M.D. lr Dictated: 07/23/2023 [id number] Transcribed: 07/23/2023 cc:CAITLIN PryorMetroHealth Cleveland Heights Medical CenterComment on above:Result Comment: Electronically Signed By: Johnie WALSH, Yandel Mckinnon\.br\Date and Time Signed: 07/25/23 08:27 [id number] Evaluation note* Encounter Date Diagnosis Assessment Notes [...] Nicotine dependence, cigarettes, uncomplicated (ICD-10 - F17.210) [employer] Other 06-01-2023 Hospital Discharge instructions Patient Education 01/17/2023 09:45:42 Colonoscopy, Care After Surgery Salam (CUSTOM) Colonoscopy Care After Surgery Please read the instructions outlined below and refer to this sheet in the next few weeks. These discharge instructions provide you with general information on caring for [facility] Your doctor may also give you [...] worse throughout the day. 01/17/2023 09:45:38 Hemorrhoids, Armr-mr-Pbax Hemorrhoids Hemorrhoids are swollen veins that may [...] 3 times a day. General instructions Take rbof-zcf-cnmvcow and prescription medicines only as told by [...] provider. Document Revised: 02/14/2022 Document Reviewed: 02/14/2022 [employer] Patient Education 2022 Packet Design. 01/17/2023 09:45:31 Colon Polyps Colon Polyps Colon [...] hard liquor (44 mL). General instructions Take pkpl-eyd-iqewoza and prescription medicines only as told by [...] provider. Document Revised: 11/23/2020 Document Reviewed: 11/23/2020 [employer] Patient Education 2022 Packet Design. Follow Up Care 09/14/2022 14:04:03 With:BELA WALSH, DHAVAL Poole, [facility] Address: [address] [place] [address] When: Unknown Comments:Office will call to schedule follow up appointment [facility]04-05-2023 Evaluation + Plan noteExtracted from: Title:Anesthesia Pre-Op Note - LILLY Author:Brody Raza DO Date:11/21/22 Plan [place] [employer] of Anesthesiologists#(ASA) physical status classification: Class III. Anesthetic Preoperative Plan Anesthesia: General. . Anesthetic plan, risks, benefits, and alternatives discussed with the patient and/or family. Risks discussed: nausea, vomiting, headache, sore throat, aspiration, airway. Patient verbalized understanding. Informed consent was given. Consent was signed by the patient. Future Appointments Appointment Date:12/10/2022 02:40:00 PM Scheduled Provider:Inessa Grajeda CNP Location:[facility] Appointment Type:BAD Follow Up Appointment Date:01/17/2023 09:50:00 AM Scheduled Provider: Location:[facility] Appointment Type:Surgery FT Appointment Date:01/30/2023 01:20:00 PM Scheduled Provider:POLLY MARIANO PA-C Location:[facility] [place] Appointment Type:URO Office Visit Future Scheduled Tests Laboratory* Clostridium difficile by PCR 05/09/22 * CBC w/ Auto Diff 05/09/22 * Comprehensive Metabolic Panel 05/09/22 [facility]04-05-2023 Hospital Discharge instructions Patient Education 11/21/2022 11:26:16 Foot Cryocuff Patient Instructions - FT (CUSTOM) 11/21/2022 11:26:16 Post Op Patient Instructions - FT (CUSTOM) 11/21/2022 08:48:42 Harsh - Post Operative Instructions (Revised 07/29/19) (Custom) ([id number]) (Custom) [place], [place] Martin Arango DPM, FACFAS POST OPERATIVE [...] feel free to call the doctor at: [phone] or [phone] Arango paged. Patient signatureDate Dr.Nicholas Arango, DPNnamdi, FACFAS Date Revised: 09-26 [facility]03-13-2023 Hospital Discharge instructions Patient Education 10/29/2022 14:43:33 [...] water added (diluted fruit juice). Eat bland, szme-rb-ozhore foods in small amounts as you are able. These foods include bananas, applesauce, rice, lean meats, toast, and crackers. Avoid drinking fluids that contain a lot of sugar or caffeine, such as energy drinks, sports drinks, and soda. Avoid alcohol. Avoid spicy or fatty foods. General instructions Take jods-zki-qzgdubf and prescription medicines only as told by your health care provider. Rest at home while you recover. Drink enough fluid to keep your urine pale yellow. Breathe slowly and deeply when you feel nauseous. Avoid smelling things that have strong odors. Wash your hands often using soap and water. If soap and water are not available, use hand wood casket maker. Make sure that all people in your [...] recommendations for eating and drinking and take ykip-cxk-shfzbds and prescription medicinesonly as told by your [...] 09/12/2005 Document Revised: 01/13/2019 Document Reviewed: 01/13/2019 [employer] Patient Education 2019 TripIt Follow Up Care 10/02/2022 13:26:11 With:Inessa Grajeda CNP Address: When:1 to 2 weeks Comments:Following colonoscopy. [facility] 03-04-2023 Hospital Discharge instructions [...] Treatment for this condition includes: Antibiotic medicine. Oady-cdv-muuupvn medicines to treat discomfort. Drinking enough water [...] Follow these instructions at home: Medicines Take dwop-nui-mnyyaod and prescription medicines only as told by [...] 05/15/2006 Document Revised: 07/23/2019 Document Reviewed: 02/12/2019 [employer] Patient Education 2020 Packet Design. 10/20/2022 12:23:03 Antibiotic Medicine, Adult Antibiotic Medicine, [...] 04/17/2005 Document Revised: 02/03/2019 Document Reviewed: 08/06/2017 [employer] Patient Education 2020 Packet Design. Follow Up Care 10/20/2022 10:33:51 With:ROBERT GIRON Address: [address] [place] [address] Business (1) When:10/23/2022 12:22:53 Comments:Call [...] you develop any new or worsening symptoms. [facility]03-04-2023 Evaluation + Plan noteExtracted from: Title:ED Note Author:Santos Landry DO Date: Acute UTI (N39.0: Urinary tr act infection, site not specified) Orders: azithromycin, = 1 packet(s), Oral, As Directed, as directed on package labeling, X 5 day(s), # 6 tab(s), Refills(s) 0, Pharmacy: [facility] ? #37, 163, cm, 10/20/22 10:48:00 EST, Height/Length [...] Appointments Appointment Date:10/23/2022 09:00:00 AM Scheduled Provider: [facility] Appointment Type:US Abdominal/Pelvis (FT) Appointment Date:10/29/2022 02:40:00 PM Scheduled Provider:Inessa Grajeda CNP Location:[facility] Appointment Type:BADH Follow Up Appointment Date:10/30/2022 03:00:00 PM Scheduled Provider:Elliott Solis MD [facility]ment Type:Cardiology Follow Up (FT) Appointment Date:11/07/2022 02:40:00 PM Scheduled Provider: Location:[facility] Appointment Type:Surgery FT Appointment Date:01/30/2023 01:20:00 PM Scheduled Provider:POLLY MARIANO PA-C Location:[facility] [place] Appointment Type:URO Office Visit Diagnostic Tests Pending * Urine Culture 10/20/22 Future Scheduled Tests Laboratory* Clostridium difficile by PCR 9/21/22 * CBC w/ Auto Diff 05/09/22 * Comprehensive Metabolic Panel 05/09/22 Radiology* US Abdomen Complete 10/23/22 [facility]02-24-2023 Hospital Discharge instructions Patient Education 10/12/2022 14:38:59 [...] take to decrease my back pain? Take gfzj-qmu-tdrccdz or prescription medicines only as told by [...] and in- person support groups through: The [place] [employer] Association: https://theacpa.org/Support-Groups The [place] Pain [...] 08/19/2016 Document Revised: 07/18/2018 Document Reviewed: 04/13/2017 [employer] Patient Education 2020 TripIt Follow Up Care 10/12/2022 12:55:29 With:ROBERT CARMENCADENCE Address: [place] [address] Business (1) When:10/15/2022 14:38:47 Comments:Call the [...] you develop any new or worsening symptoms. [facility]02-24-2023 Evaluation + Plan noteExtracted from: Title:ED Note [...] Provider: Location:.[facility] Appointment Type:US Abdominal/Pelvis () Appointment Date:10/29/2022 02:40:00 PM Scheduled Provider:Inessa Grajeda CNP Location:[facility] Appointment Type:[facility] Follow Up Appointment Date:10/30/2022 03:00:00 PM Scheduled Provider:Elliott Solis MD [facility] Appointment Type:Cardiology Follow Up (FT) Appointment Date:11/07/2022 02:40:00 PM Scheduled Provider: Location:[facility] Appointment Type:Surgery FT Appointment Date:01/30/2023 01:20:00 PM Scheduled Provider:POLLY MARIANO PA-C Location:[facility] Appointment Type:URO Office Visit Future Scheduled Tests Laboratory* Fecal WBC Lactoferrin 05/09/22 * Giardia lamblia, Direct Detection EIA 05/09/22 * O & P Exam, Routine 05/09/22 * Clostridium difficile by PCR 05/09/22 * Enteric Panel by PCR 05/09/22 * CBC w/ Auto Diff 05/09/22 * Comprehensive Metabolic Panel 05/09/22 Radiology* US Abdomen Complete 10/23/22 [facility]02-14-2023 Hospital Discharge instructions Patient Education 10/02/2022 13:01:04 [...] water added (diluted fruit juice). Eat bland, vdqj-rm-bzzgng foods in small amounts as you are able. These foods include bananas, applesauce, rice, lean meats, toast, and crackers. Avoid fluids that contain a lot of sugar or caffeine, such as energy drinks, sports drinks, and soda. Avoid alcohol. Avoid spicy or fatty foods. General instructions Take ygul-nhu-ipbmrjg and prescription medicines only as told by your health care provider. Drink enough fluid to keep your urine pale yellow. Wash your hands often using soap and water. If soap and water are not available, use hand wood casket maker. Make sure that all people in your [...] eating and drinking to prevent dehydration. Take kwuh-irt-rbvsvdj and prescription medicines only as told by [...] 08/05/2006 Document Revised: 11/27/2019 Document Reviewed: 01/13/2019 [employer] Patient Education 2019 Packet Design. Follow Up Care 09/21/2022 11:43:03 With:Inessa Grajeda CNP Address: When:1 month [facility] 01-19-2023 Evaluation + Plan noteExtracted from: Title:ANES Post-operative Note Author:Kurt Oseguera MD Date:09/06/22 Plan Transfer/Discharge: Transfer/Discharge Discharge when meets criteria ( To home ). Extracted from: Title:ANES Pre-operative Note Author:Lillie Oseguera MD Date:09/06/22 Plan [place] [employer] of Anesthesiologists (ASA) physical status classification: Class III. Anesthetic Preoperative Plan: Anesthesia General, and Monitored anethesia care. Future Appointments Appointment Date:10/30/2022 03:00:00 PM Scheduled Provider:Elliott Solis MD [facility] Appointment Type:Cardiology Follow Up (FT) Appointment Date:01/30/2023 01:20:00 PM Scheduled Provider:POLLY MARIANO PA-C Location:[facility] Appointment Type:URO Office Visit Future Scheduled Tests Laboratory* Fecal WBC Lactoferrin 05/09/22 * Giardia lamblia, Direct Detection EIA 05/09/22 * O & P Exam, Routine 05/09/22 * Clostridium difficile by PCR 05/09/22 * Enteric Panel by PCR 05/09/22 * CBC w/ Auto Diff 05/09/22 * Comprehensive Metabolic Panel 05/09/22 [facility]01-19-2023 Hospital Discharge instructions Patient Education 09/06/2022 09:52:38 Colonoscopy, Care After Surgery Salam (CUSTOM) Colonoscopy Care After Surgery Please read the instructions outlined below and refer to this sheet in the next few weeks. These discharge instructions provide you with general information on caring [facility] Your doctor may also give you [...] what activities are safe for you. Take wnuw-rtm-xbrohes and prescription medicines only as told by [...] 02/03/2013 Document Revised: 01/27/2019 Document Reviewed: 01/05/2019 [employer] Patient Education 2020 Packet Design. Follow Up Care 06/26/2022 12:25:13 With:Zulema CRAMER Address: [address] [place] [address] Business (1) When: Unknown Comments:Office to call for follow-up appointment [facility]11-17-2022 Evaluation note* Encounter Date Diagnosis Assessment Notes Treatment Notes Treatment Clinical Notes Jun, Chronic obstructive pulmonary disease, unspecified (ICD-10 - J44.9) Jun, Tobacco abuse (ICD-10 - Z72.0) Cut back on smoking to goal of stopping, Jun, Diastolic dysfunction (ICD-10 - I51.9) [employer] Other 04-25-2022 Hospital Discharge instructions Patient Education [...] fried and sweet foods. General instructions Take kzaj-whs-uvhtztw and prescription medicines only as told by [...] 06/01/2010 Document Revised: 11/26/2019 Document Reviewed: 08/21/2018 [employer] Patient Education 2020 Packet Design. Follow Up Care 09/04/2021 10:41:00 With:LILI WALSH, Donaldo Moreira, URL Address: [facility] [address], [place] [phone] When:04/12/2022 [facility] 11-09-2021 NoteHNO ID: [id number] Author: Ye Rodriguez PA-C Service: ? Author Type: Physician Insole Tack Puller Hand Type: Progress Notes Filed: 06/27/2021 4:56 PM Note Text: [facility] [place] [facility] NOTE CC: Keturah Herrera is a [...] ER - Follow up as clinically indicated eY Rodriguez PA-C Comprehensive ENT HPI: 50 year [...] bipolar - COPD (chronic obstructive pulmonary disease) ([facility]) - Depression - Ana Laura-Danlos disease [...] Derived Hives - Atomoxetine (more content not included)...[facility]09-01-2021 NoteHNO ID: [id number] Author: RT James(R) Service: ? Author Type: Highballer Type: Progress Notes Filed: 04/19/2021 1:56 PM [...] BY: RT James(R) April 19, 2021 1:55 [facility]09-01-2021 NoteHNO ID: [id number] Author: Randi Farrell, DO Service: ? Author [...] She will follow-up in a month if necessary[facility]-2021 NoteHNO ID: [id number] Author: RT James(R) Service: ? Author Type: Highballer Type: Progress Notes Filed: 04/19/2021 1:09 PM [...] BY: RT James(R) April 19, 2021 1:09 [facility] Future Appointments Appointment Date:12/11/2021 11:45:00 AM Scheduled Provider:Donaldo PEARSON MD Location:[facility] Appointment Type:URO Office Visit Appointment Date:01/11/2022 02:15:00 PM Scheduled Provider:Zulema CRAMER MD Location:[facility] Appointment Type:[facility] Follow [facility] Future Appointments Appointment Date:01/11/2022 02:15:00 PM Scheduled Provider:Zulema CRAMER MD Location:[facility] Appointment Type:[facility] Follow Up Appointment Date:04/09/2022 01:45:00 PM Scheduled Provider:Donaldo PEARSON MD Location:[facility] Appointment Type:URO Office Visit [facility] evaluation + Plan note Future Appointments Appointment Date:02/01/2022 08:15:00 AM Scheduled Provider: Location:[facility] Appointment Type:Surgery PAT COVID Testing Appointment Date:02/01/2022 09:00:00 AM Scheduled Provider: Location:[facility] Appointment Type:Surgery FT Appointment Date:02/08/2022 09:40:00 AM Scheduled Provider: [facility] Appointment Type:Surgery FT Appointment Date:04/09/2022 01:45:00 PM Scheduled Provider:Donaldo PEARSON MD [facility] Office [facility] Evaluation + Plan note Future Appointments Appointment Date:02/01/2022 08:15:00 AM Scheduled Provider: Location:[facility] Appointment Type:Surgery PAT COVID Testing Appointment Date:02/01/2022 09:00:00 AM Scheduled Provider: Location:[facility] Appointment Type:Surgery FT Appointment Date:02/08/2022 09:40:00 AM Scheduled Provider: Location:[facility] Appointment Type:Surgery FT Appointment Date:03/06/2022 10:30:00 AM Scheduled Provider:Cady CALIX CNP Location[facility] Appointment Type:Cardiology Follow Up (FT) Appointment Date:04/09/2022 01:45:00 PM Scheduled Provider:Donal[facility]SON MD [facility] Future Appointments Appointment Date:02/08/2022 09:30:00 AM Scheduled Provider: Location:[facility] Appointment Type:Surgery FT Appointment Date:03/06/2022 10:30:00 AM Scheduled Provider:Cady CALIX CNP Location:[facility] Appointment Type:Cardiology Follow Up (FT) Appointment Date:04/09/2022 01:45:00 PM Scheduled Provider:Donaldo PEARSON MD [facility] Future Appointments Appointment Date:03/06/2022 10:30:00 AM Scheduled Provider:Cady CALIX CNP Location:[facility] Appointment Type:Cardiology Follow Up (FT) Appointment Date:03/22/2022 08:15:00 AM Scheduled Provider: Location:[facility] Appointment Type:Surgery PAT COVID Testing Appointment Date:03/29/2022 08:40:00 AM Scheduled Provider: Location:[facility] Appointment Type:Surgery FT Appointment Date:04/09/2022 01:45:00 PM Scheduled Provider:Donaldo PEARSON MD Location:[facility] Appointment Type:URO Office Visit [facility] + Plan note Future Appointments Appointment Date:03/20/2022 01:00:00 PM Scheduled Provider: [facility] Type:Cardiology Nurse Visit (FT) Appointment Date:03/22/2022 08:15:00 AM Scheduled Provider: Location:[facility] Appointment Type:Surgery PAT COVID Testing Appointment Date:03/29/2022 08:40:00 AM Scheduled Provider: Location:[facility] Appointment Type:Surgery FT Appointment Date:04/09/2022 01:45:00 PM Scheduled Provider:Donaldo PEARSON MD Location:[facility] Appointment Type:URO Office Visit Appointment Date:09/06/2022 01:15:00 PM Scheduled Provider:Elliott Solis MD [facility]ment Type:Cardiology Follow Up (FT) [facility] + Plan note Future Appointments Appointment Date:03/22/2022 08:15:00 AM Scheduled Provider: Location:[facility] Appointment Type:Surgery PAT COVID Testing Appointment Date:03/29/2022 08:40:00 AM Scheduled Provider: Location:[facility] Appointment Type:Surgery FT Appointment Date:04/09/2022 01:45:00 PM Scheduled Provider:Donaldo PEARSON MD Location:[facility] Appointment Type:URO Office Visit Appointment Date:09/06/2022 01:15:00 PM Scheduled Provider:Elliott Solis MD [facility]ment Type:Cardiology Follow Up (FT) [facility] + Plan note Future Appointments Appointment Date:03/29/2022 08:40:00 AM Scheduled Provider: Location:[facility] Appointment Type:Surgery FT Appointment Date:04/09/2022 01:45:00 PM Scheduled Provider:Donaldo PEARSON MD Location:[facility] Appointment Type:URO Office Visit Appointment Date:09/06/2022 01:15:00 PM Scheduled Provider:Elliott Solis MD [facility] Type:Cardiology [facility] Up (FT) [facility] Future Appointments Appointment Date:05/09/2022 01:40:00 PM Scheduled Provider:Inessa Grajeda CNP Location:[facility] Appointment Type:BADH Follow Up Appointment Date:05/15/2022 01:30:00 PM Scheduled Provider:Cady CALIX CNP [facility] App[facility]ment Type:Cardiology ED Follow Up (FT) Appointment Date:05/16/2022 01:20:00 PM Scheduled Provider:POLLY MARIANO PA-C Location:[facility] Appointment Type:URO Office Visit Appointment Date:09/06/2022 01:15:00 PM Scheduled Provider:Elliott Solis MD [facility] Type:Cardiology Follow Up (FT) [facility] Future Appointments Appointment Date:06/11/2022 11:00:00 AM Scheduled Provider: Location:[facility] Appointment Type:Surgery PAT COVID Testing Appointment Date:06/18/2022 09:45:00 AM Scheduled Provider: Location:[facility] Appointment Type:Surgery FT Appointment Date:09/06/2022 01:15:00 PM Scheduled Provider:Elliott Solis MD [facility] Appointment Type:Cardiology Follow Up (FT) Appointment Date:10/30/2022 03:00:00 PM Scheduled Provider:Elliott Solis MD [facility] Appointment Type:Cardiology Follow Up (FT) Future Scheduled Tests Laboratory* Fecal WBC Lactoferrin 05/09/22 * Giardia lamblia, Direct Detection EIA 05/09/22 * O & P Exam, Routine 05/09/22 * Clostridium difficile by PCR 05/09/22 * Enteric Panel by PCR 05/09/22 * CBC w/ Auto Diff 05/09/22 * Comprehensive Metabolic Panel 05/09/22 [facility] Future Appointments Appointment Date:09/06/2022 01:15:00 PM Scheduled Provider:Elliott Solis MD [facility] Appointment Type:Cardiology Follow Up (FT) Appointment Date:10/30/2022 03:00:00 PM Scheduled Provider:Elliott Solis MD [facility] Appointment Type:Cardiology Follow Up (FT) Appointment Date:01/30/2023 01:20:00 PM Scheduled Provider:POLLY MARIANO PA-C Location:[facility] Appointment Type:URO Office Visit Future Scheduled Tests Laboratory* Fecal WBC Lactoferrin 05/09/22 * Giardia lamblia, Direct Detection EIA 05/09/22 * O & P Exam, Routine 05/09/22 * Clostridium difficile by PCR 05/09/22 * Enteric Panel by PCR 05/09/22 * CBC w/ Auto Diff 05/09/22 * Comprehensive Metabolic Panel 05/09/22 [facility] Future Appointments Appointment Date:10/30/2022 03:00:00 PM Scheduled Provider:Elliott Solis MD [facility] Type:Cardiology Follow Up (FT) Appointment Date:01/30/2023 01:20:00 PM Scheduled Provider:POLLY MARIANO PA-C Location:[facility] Appointment Type:URO Office Visit Future Scheduled Tests Laboratory* Fecal WBC Lactoferrin 05/09/22 * Giardia lamblia, Direct Detection EIA 05/09/22 * O & P Exam, Routine 05/09/22 * Clostridium difficile by PCR 05/09/22 * Enteric Panel by PCR 05/09/22 * CBC w/ Auto Diff 05/09/22 * Comprehensive Metabolic Panel 05/09/22 [facility] Future Appointments Appointment Date:10/23/2022 09:00:00 AM Scheduled Provider: [facility] Appointment Type:US Abdominal/Pelvis (FT) Appointment Date:10/29/2022 02:40:00 PM Scheduled Provider:Inessa Grajeda CNP Location:[facility] Appointment Type:BADH Follow Up Appointment Date:10/30/2022 03:00:00 PM Scheduled Provider:Elliott Solis MD [facility] Appointment Type:Cardiology Follow Up (FT) Appointment Date:10/31/2022 03:15:00 PM Scheduled Provider: Location:[facility] Appointment Type:Surgery PAT COVID Testing Appointment Date:11/07/2022 02:40:00 PM Scheduled Provider: Location:[facility] Appointment Type:Surgery FT Appointment Date:01/30/2023 01:20:00 PM Scheduled Provider:POLLY MARIANO PA-C Location:[facility] Appointment Type:URO Office Visit Future Scheduled Tests Laboratory* Fecal WBC Lactoferrin 05/09/22 * Giardia lamblia, Direct Detection EIA 05/09/22 * O & P Exam, Routine 05/09/22 * Clostridium difficile by PCR 05/09/22 * Enteric Panel by PCR 05/09/22 * CBC w/ Auto Diff 05/09/22 * Comprehensive Metabolic Panel 05/09/22 Radiology* US Abdomen Complete 10/23/22 [facility] Evaluation + Plan note Future Appointments Appointment Date:10/30/2022 08:00:00 AM Scheduled Provider: [facility] Appointment Type:US Abdominal/Pelvis (FT) Appointment Date:10/30/2022 03:00:00 PM Scheduled Provider:Elliott Solis MD [facility] Appointment Type:Cardiology Follow Up (FT) Appointment Date:11/07/2022 02:40:00 PM Scheduled Provider: Location:[facility] Appointment Type:Surgery FT Appointment Date:12/10/2022 02:40:00 PM Scheduled Provider:Inessa Grajeda CNP Location:[facility] [place] Appointment Type:BADH Follow Up Appointment Date:01/30/2023 01:20:00 PM Scheduled Provider:POLLY MARIANO PA-C Location:[facility] Appointment Type:URO Office Visit Future Scheduled Tests Laboratory* Clostridium difficile by PCR 05/09/22 * CBC w/ Auto Diff 05/09/22 * Comprehensive Metabolic Panel 05/09/22 Radiology* US Abdomen Complete 10/30/22 [facility] evaluation + Plan note Future Appointments Appointment Date:11/07/2022 02:40:00 PM Scheduled Provider: Location:[facility] Appointment Type:Surgery FT Appointment Date:11/09/2022 10:00:00 AM Scheduled Provider: [facility] Appointment Type:US Abdominal/Pelvis (FT) Appointment Date:12/10/2022 02:40:00 PM Scheduled Provider:Inessa Grajeda CNP Location:[facility] Appointment Type:BAD Follow Up Appointment Date:01/30/2023 01:20:00 PM Scheduled Provider:POLLY MARIANO PA-C Location:[facility] Appointment Type:URO Office Visit Future Scheduled Tests Laboratory* Clostridium difficile by PCR 05/09/22 * CBC w/ Auto Diff 05/09/22 * Comprehensive Metabolic Panel 05/09/22 Radiology* US Abdomen Complete 11/09/22 [facility] Future Appointments Appointment Date:12/10/2022 02:40:00 PM Scheduled Provider:Inessa Grajeda CNP Location:[facility] Appointment Type:BAD Follow Up Appointment Date:01/17/2023 09:50:00 AM Scheduled Provider: Location:[facility] Appointment Type:Surgery FT Appointment Date:01/30/2023 01:20:00 PM Scheduled Provider:POLLY MARIAON PA-C Location:[facility] Appointment Type:URO Office Visit Future Scheduled Tests Laboratory* Clostridium difficile by PCR 05/09/22 * CBC w/ Auto Diff 05/09/22 * Comprehensive Metabolic Panel 05/09/22 [facility] Future Appointments Appointment Date:01/30/2023 01:20:00 PM Scheduled Provider:POLLY MARIANO PA-C Location:[facility] Appointment Type:URO Office Visit Appointment Date:02/06/2023 02:00:00 PM Scheduled Provider:Inessa Grajeda CNP Location:[facility] Appointment Type:[facility] Follow Up Future Scheduled Tests Laboratory* Clostridium difficile by PCR 05/09/22 * CBC w/ Auto Diff 05/09/22 * CBC w/ Auto Diff 12/25/22 * Comprehensive Metabolic Panel 05/09/22 * Comprehensive Metabolic Panel 12/25/22 [facility] Future Appointments Appointment Date:06/14/2023 11:00:00 AM Scheduled Provider: Location:[facility] Appointment Type:CV Holter/Event (FT) Appointment Date:07/25/2023 11:45:00 AM Scheduled Provider:Elliott SOLIS MD [facility] Type:Cardiology Follow Up (FT) Future Scheduled Tests Laboratory* Pancreatic Elastase, Fecal 01/29/23 * Fecal WBC Lactoferrin 01/29/23 * Giardia lamblia, Direct Detection EIA 01/29/23 * O & P Exam, Routine 01/29/23 * Clostridium Difficile PCR 01/29/23 * Enteric Panel by PCR 01/29/23 * CBC w/ Auto Diff 12/25/22 * Comprehensive Metabolic Panel 12/25/22 Radiology* Echo Transthoracic Complete 05/20/23 [facility] Future Appointments Appointment Date:07/25/2023 11:45:00 AM Scheduled Provider:Elliott SOLIS MD [facility] Appointment Type:Cardiology Follow Up (FT) Appointment Date:07/30/2023 02:00:00 PM Scheduled Provider:POLLY MARIANO PA-C Location:[facility] Appointment Type:URO Office Visit Future Scheduled Tests Laboratory* Pancreatic Elastase, Fecal 01/29/23 * Fecal WBC Lactoferrin 01/29/23 * Giardia lamblia, Direct Detection EIA 01/29/23 * O & P Exam, Routine 01/29/23 * Clostridium Difficile PCR 01/29/23 * Enteric Panel by PCR 01/29/23 * CBC w/ Auto Diff 12/25/22 * Comprehensive Metabolic Panel 12/25/22 Radiology* Echo Transthoracic Complete 05/20/23 [facility] Future Appointments Appointment Date:07/30/2023 02:00:00 PM Scheduled Provider:POLLY MARIANO PA-C Location:[facility] Appointment Type:URO Office Visit Future Scheduled Tests Laboratory* Pancreatic Elastase, Fecal 01/29/23 * Fecal WBC Lactoferrin 01/29/23 * Giardia lamblia, Direct Detection EIA 01/29/23 * O & P Exam, Routine 01/29/23 * Clostridium Difficile PCR 01/29/23 * Enteric Panel by PCR 01/29/23 * CBC w/ Auto Diff 12/25/22 * Comprehensive Metabolic Panel 12/25/22 Radiology* Echo Transthoracic Complete 05/20/23 [facility] Future Appointments Appointment Date:12/31/2023 01:00:00 PM Scheduled Provider:POLLY MARIANO PA-C Location:[facility] Appointment Type:URO Office Visit Future Scheduled Tests Laboratory* Pancreatic Elastase, Fecal 01/29/23 * Fecal WBC Lactoferrin 01/29/23 * Giardia lamblia, Direct Detection EIA 01/29/23 * O & P Exam, Routine 01/29/23 * Clostridium Difficile PCR 01/29/23 * Enteric Panel by PCR 01/29/23 * CBC w/ Auto Diff 12/25/22 * Comprehensive Metabolic Panel 12/25/22 Radiology* Echo Transthoracic Complete 05/20/23 [facility] evaluation + Plan note Future Appointments Appointment Date:01/01/2024 11:00:00 AM Scheduled Provider:Cady Alva PA-C Location:[facility] Appointment Type:Pain Management - Follow Up (FT) Appointment Date:01/30/2024 02:15:00 PM Scheduled Provider:En Carmen PA-C [facility] Type:Cardiology Follow Up (FT) Appointment Date:01/05/2025 01:00:00 PM Scheduled Provider:POLLY MARIANO PA-C Location:[facility] Appointment Type:URO Office Visit Future Scheduled Tests Laboratory* Pancreatic Elastase, Fecal 01/29/23 * Fecal WBC Lactoferrin 01/29/23 * Giardia lamblia, Direct Detection EIA 01/29/23 * O & P Exam, Routine 01/29/23 * Clostridium Difficile PCR 01/29/23 * Enteric Panel by PCR 01/29/23 Radiology* Echo Transthoracic Complete 05/20/23 [facility] evaluation + Plan note Future Appointments Appointment Date:03/05/2024 03:30:00 PM Scheduled Provider:Andrew Eid DO Location[facility] Appointment Type:Pain Management - Follow Up (FT) Appointment Date:07/30/2024 01:45:00 PM Scheduled Provider:Kehinde Davalos MD [facility] Type:Cardiology Follow Up (FT) Appointment Date:01/05/2025 01:00:00 PM Scheduled Provider:POLLY MARIANO PA-C Location:[facility] Appointment Type:URO Office Visit Future Scheduled Tests Radiology* Echo Transthoracic Complete 05/20/23 [facility] noteNo assessment information available [facility] Work Phone: Evaluation noteNo InformationNojefferson memorial hospital [employer] Other Evaluation note* Diagnosis Oral thrush Candidiasis of mouth documented in this encounter [facility]* Diagnosis Chronic bilateral low back pain with sciatica, sciatica laterality unspecified [facility]* Diagnosis Anxiety state Anxiety state, unspecified documented in this encounter [facility] SystemEvaluation note* Diagnosis Chronic bilateral low back pain with bilateral sciatica Diabetic peripheral neuropathy (CMS/HCC) Type II or unspecified type diabetes mellitus with neurological manifestations, not stated as uncontrolled Lumbar radiculopathy Thoracic or lumbosacral neuritis or radiculitis, unspecified documented in this encounter [facility] HealthcareEvaluation note* Diagnosis Hav (hallux abducto valgus), right- Primary Plantar fasciitis Plantar fascial fibromatosis Diabetes 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 polyneuropathy, with long-term current use of insulin (CMS/HCC) Contracture of right ankle Bone spur of right foot documented in this encounter [facility] HealthcareEvaluation note* Diagnosis Chronic bilateral low back pain with bilateral sciatica Diabetic peripheral neuropathy (CMS/HCC) Type II or unspecified type diabetes mellitus with neurological manifestations, not stated as uncontrolled Lumbar radiculopathy Thoracic or lumbosacral neuritis or radiculitis, unspecified documented in this encounter [facility] HealthcareEvaluation note* Diagnosis Pre-op evaluation- Primary Hallux valgus of right foot Essential hypertension Unspecified essential hypertension Diabetic peripheral neuropathy (CMS-HCC) Type II or unspecified type diabetes mellitus with neurological manifestations, not stated as uncontrolled [facility]* Diagnosis Anxiety state Anxiety state, unspecified Type 2 diabetes mellitus without complication, without long-term current use of insulin (CMS-HCC) Type 2 diabetes mellitus with diabetic mononeuropathy, without long-term current use of insulin (CMS-HCC) documented in this encounter [facility] SystemHistory general Narrative - Reported* Type Description [...] surgery 1990 Surgical History Carpal tunnel surgery 1991 Surgical History Tarsal tunnel surgery 2011 Surgical History Mortons Neuromas 2011 Surgical History Milk ducts removed from breasts 2010 Surgical History Lithotripsy 1995 Surgical History Ingrown toenail x [address]/MRI Surgical History broken right foot toe Surgical History rt knee surgery arthroscopy Hospitalization History Hypokalemia, nausea, vom iting Hospitalization History see above surgical [facility] Other History general Narrative - Reported* Type [...] vom iting Hospitalization History see above surgical [facility] [employer] Other Hospital course Narrative No data available for this section [facility] No data available for this section [facility] CampusInstructionsNot on filedocumented in this encounter [facility] [...] note No data available for this section [facility] Summary Purpose Family History No Family History Records Found Relationship Condition Age at Onset Recorded Date/T corey Not Specified Malignant neoplasm Unknown Hypertension Unknown Coronary artery disease Unknown Diabetes mellitus Unknown brother Malignant neoplasm Unknown Relationship Condition Age at Onset Recorded Date/T corey mother Malignant neoplasm Unknown Hypertension Unknown Coronary artery disease Unknown Diabetes mellitus Unknown History of ovarian cancer Unknown brother Malignant neoplasm Unknown father Heart disease Unknown Unknown family member Unknown Advance Directives No Advanced Directives Records Found Advance Directive Response Recorded Date/ Time Advance Directives No May 28, 2019 12:46pm Chief Complaint and Reason for Visit Chief Complaint g02.97 f17.210 Chief Complaint f17.210 Additional Source Comments INFORMATION SOURCE (unrecogn ized section and content) DATE CREATED AUTHOR 10/09/2021 [facility] DATE CREATED AUTHOR AUTHOR'S ORGANIZ ATION 02/22/2022 [facility] DATE CREATED AUTHOR AUTHOR'S ORGANIZ ATION 01/28/2023 [facility] DATE CREATED AUTHOR AUTHOR'S ORGANIZ ATION 06/26/[address] [facility] DATE CREATED AUTHOR AUTHOR'S ORGANIZ ATION 09/22/2023 [facility] DATE CREATED AUTHOR AUTHOR'S ORGANIZ ATION 03/04/2024 [facility] DATE CREATED AUTHOR AUTHOR'S ORGANIZ ATION 03/09/[address] [facility] DATE CREATED AUTHOR AUTHOR'S ORGANIZ ATION 04/01/2024 [facility] DATE CREATED AUTHOR AUTHOR'S ORGANIZ ATION 04/04/2024 [facility] DATE CREATED AUTHOR AUTHOR'S ORGANIZ ATION 04/17/2024 [facility] Care Team (unrecognized sect ion and content) Team Status: Active Member Role Status Dates Robert Giron DO Primary Care Provider Active Team Status: Inactive Member Role Status Dates Robert Giron DO Primary Care Provider Active Valarie Herrera APRN ACNP- Attending Provider Active [employer] Relationship Specialty Start Date End Date Robert Giron DO [address] [place] [address] PCP - General Family Medicine 05/10/22 [employer] Executive Relationship Specialty Start Date End Date Robert Giron DO [address] [place] [address] PCP - General Family Medicine 05/10/22 [employer] Executive Relationship Specialty Start Date End Date Robert Giron DO [address] [place] [address] PCP - General Family Medicine 05/10/22 Private Sector Executive Relationship Specialty Start Date End Date Robert Giron DO [address] [place] [address] PCP - General Family Medicine 05/10/22 Private [employer] Executive Relationship Specialty Start Date End Date Robert Giron MD [address] [place] [address] PCP - General Family Medicine 07/24/23 [employer] Sector Executive Relationship Specialty Start Date End Date Robert Giron DO [address] [place] [address] PCP - General Family Medicine 05/10/22 [employer] Executive Relationship Specialty Start Date End Date Robert Giron DO [address], [place] [address] PCP - General Family Medicine 05/10/22 Private Sector Executive Relationship Specialty Start Date End Date Robert Giron DO [address], [place] [address] PCP - General Family Medicine 05/10/22 Private Sector Executive Relationship Specialty Start Date End Date Robert Giron DO [address], [place] [address] PCP - General Family Medicine 05/10/22 Private Sector Executive Relationship Specialty Start Date End Date Robert Giron DO [address], [place] [address] PCP - [facility] Family Medicine 05/10/22 Team Status: Inactive Member Role Status Dates Robert Nellamelvincharli Primary Care Provider Active Start: March 31, 2024 End: March 31, 2024 Valarie Herrera APRN [facility] Attending Provider Active Start: March 31, 2024 End: March 31, 2024 Goals (unrecognized section and content) Goals may [...] BE BASED ON THE PRIMARY CLINICAL RECORDS. [facility] [employer] [facility]. provides no warranty or guarantee of the accuracy or completeness of information in this document.
[2024-04-19 12:14] VITALS: BP 151/89; PULSE 67; TEMP 36.5; O2SAT 99; BMI 31.6
--- NOTE | 2024-04-19 13:13 | ED.SKABFB1 ---
HPI - Skin/Abscess/Foreign Bdy General Chief complaint: Skin/Abscess/Foreign Body Stated complaint: LOWER EXTREMITY PAIN POST OP Time Seen by Provider: 04/19/24 13:08 Source: patient Mode of arrival: walk-in Limitations: no limitations History of Present Illness HPI narrative: Patient is here for evaluation of postop discomfort in both her feet. She recently had toenails removed by local cardiothoracic icu rn. She is concerned that they may be getting an infection. She is not running a fever. This patient has multiple allergies and is difficult to know if there is substantial and serious but the left thumb and always has. She has not had any new trauma or injury. She is applying topical antibiotic went to the wounds there is no swelling or redness over the dorsum of the foot it is just at the toenail area that started to get a little bit inflamed especially on the left third toenail. Again those toenails were removed so it is the underlying area that is getting a little inflamed. Related Data Home Medications ?Medication ?Instructions ?Recorded ?Confirmed alendronate 70 mg tablet 70 mg PO QWEEK 11/05/23 12/01/23 alprazolam 1 mg tablet 1 mg PO TID PRN anxiety 11/05/23 12/01/23 aripiprazole 15 mg tablet 15 mg PO DAILY 11/05/23 12/01/23 atorvastatin 80 mg tablet 80 mg PO DAILY 11/05/23 12/01/23 calcium carbonate 600 mg PO BID 11/05/23 12/01/23 carvedilol 25 mg tablet 25 mg PO BID 11/05/23 12/01/23 cetirizine 10 mg tablet 10 mg PO DAILY 11/05/23 12/01/23 cyclobenzaprine 10 mg tablet 10 mg PO Q8H PRN spasms 11/05/23 12/01/23 Allergies Allergy/AdvReac Type Severity Reaction Status Date / Time adhesive tape Allergy Verified 12/01/23 20:32 amitriptyline Allergy Verified 12/01/23 20:32 amoxicillin Allergy Verified 12/01/23 20:32 atomoxetine [From Strattera] Allergy Verified 12/01/23 20:32 bupropion [From Wellbutrin] Allergy Verified 12/01/23 20:32 codeine Allergy Verified 12/01/23 20:32 dexamethasone Allergy Verified 12/01/23 20:32 divalproex sodium Allergy Verified 12/01/23 20:32 [From Depakote] duloxetine [From Cymbalta] Allergy Verified 12/01/23 20:32 fluticasone Allergy Verified 12/01/23 20:32 [From Advair Diskus] gabapentin Allergy Verified 12/01/23 20:32 ibuprofen Allergy Verified 12/01/23 20:32 ketorolac [From Toradol] Allergy Verified 12/01/23 20:32 meloxicam [From Mobic] Allergy Verified 12/01/23 20:32 methadone Allergy Verified 12/01/23 20:32 milnacipran [From Savella] Allergy Verified 12/01/23 20:32 nitrofurantoin Allergy Verified 12/01/23 20:32 [From Macrobid] paroxetine [From Paxil] Allergy Verified 12/01/23 20:32 Penicillins Allergy Verified 12/01/23 20:32 pregabalin [From Lyrica] Allergy Verified 12/01/23 20:32 ropinirole [From Requip] Allergy Verified 12/01/23 20:32 salmeterol Allergy Verified 12/01/23 20:32 [From Advair Diskus] topiramate [From Topamax] Allergy Verified 12/01/23 20:32 ziprasidone Allergy Verified 12/01/23 20:32 fish Allergy Uncoded 07/09/23 19:38 PFSH PFSH Social History Smoking status: Never smoker Exam Narrative Exam Narrative: Vital signs are stable. Afebrile. Pulse ox is normal she has no other complaints other than here for wound evaluation Examination of the right foot shows in fact that all the nails have been removed and the tissue is healing appropriately with no evidence of infection. The left foot the third toenail matrix and surrounding soft tissue of the digit itself is getting slightly inflamed. The interdigital spaces are normal. There is no lymphangitis or obvious cellulitis in the area. Constitutional Vital Signs, click to edit/add: Last Vital Signs Temp 97.7 F 04/19/24 12:14 Pulse 67 04/19/24 12:14 Resp 18 04/19/24 12:14 BP 151/89 H 04/19/24 12:14 Pulse Ox 99 04/19/24 12:14 O2 Del Method Room Air 04/19/24 12:14 Course Vital Signs Vital signs: Vital Signs Temperature 97.7 F 04/19/24 12:14 Pulse Rate 67 04/19/24 12:14 Respiratory Rate 18 04/19/24 12:14 Blood Pressure 151/89 H 04/19/24 12:14 Pulse Oximetry 99 04/19/24 12:14 Oxygen Delivery Method Room Air 04/19/24 12:14 Temperature 97.7 F 04/19/24 12:14 Pulse Rate 67 04/19/24 12:14 Respiratory Rate 18 04/19/24 12:14 Blood Pressure 151/89 H 04/19/24 12:14 Pulse Oximetry 99 04/19/24 12:14 Oxygen Delivery Method Room Air 04/19/24 12:14 MDM - Skin/Abscess/Foreign Bdy MDM Narrative Medical decision making narrative: Patient has mild erythema on the left third digit after having toenails removed. It is reasonable to start her on an antibiotic but our choices are extremely limited. Azithromycin does have some gram-positive coverage so we will go ahead and start that at her request. Discharge Plan Discharge Stand Alone Forms: Work/School Release, Portal Instructions Chief Complaint: Skin/Abscess/Foreign Body Clinical Impression: Post-op pain Patient Disposition: Home, Self-Care Time of Disposition Decision: 13:15 Prescriptions / Home Meds: No Action alendronate 70 mg tablet 70 mg PO QWEEK alprazolam 1 mg tablet 1 mg PO TID PRN (Reason: anxiety) aripiprazole 15 mg tablet 15 mg PO DAILY atorvastatin 80 mg tablet 80 mg PO DAILY calcium carbonate 600 mg calcium (1,500 mg) tablet 600 mg PO BID carvedilol 25 mg tablet 25 mg PO BID cetirizine 10 mg tablet 10 mg PO DAILY cyclobenzaprine 10 mg tablet 10 mg PO Q8H PRN (Reason: spasms) Print Language: Khmer Additional Instructions: Azithromycin/follow-up with your cardiothoracic icu rn Referrals: IVON GIRON [Primary Care Provider] - 1 week
== END 2024-04-19 13:46 | disposition home or self-care (01) ==
PROVIDERS: Emergency Provider Emergency Medicine Emergency Medical Services; PCP Family Medicine
DX: G89.18 Other acute postprocedural pain (principal); M79.672 Pain in left foot; M79.671 Pain in right foot
CPT/HCPCS: 99283

== ENCOUNTER 2024-06-09 23:26 | Emergency (ER) | payer OTHER, SELFPAY ==
[2024-06-09 23:30] VITALS: BP 145/102; PULSE 69; TEMP 36.8; O2SAT 98; BMI 28.2
--- OUTSIDE RECORDS SUMMARY | 2024-06-09 23:34 | XMS_ITS | CCD ---
Author Organization [facility] InformCounts include 234 beds at the [facility] Care Team Providers Care Zone Supervisor Firearms Name Role Phone ROBERT GIRON Primary Care Physician JavierValarie Unavailable JAVIERVALARIE Attending Unavailable NELLALOLAURIE, DR ROBERT Santiago Primary Care Unavailable JAVIER, VALARIE Admitting Unavailable NEFCY, PETER Consulting Unavailable JAVIER, VALARIE Consulting Unavailable CAROLA [...] Care Unavailable GRECHNY ., SHARYN LEES Consulting Unavailabl e PAY ., DR CABEZAS Admitting Unavailable NEFCYNICOLE Consulting Unavailable JAJA, ELIUD Attending Unavailable BREE, DR ROBERT Santiago Primary Care Unavailable JAJA, [...] FURLONG, DR ROBERT Santiago Primary Care Unavailable ZIEBFLOYD, DR DELORES Moreira Consulting Unavailable JAJA, ELIUD Admitting Unavailable JAJA, ELIUD Attending Unavailable NELLALOLAURIE, DR ROBERT Santiago Primary Care Unavailable HERMON, DR MAMIE Quintana Consulting Unavailable JAJA, ELIUD [...] REINECK, DR JEAN-PIERRE Santiago Admitting Unavailabl e SUJIT MITCHELL Consulting Unavailable FURLONG, DR ORBERT Santiago Primary Care Unavailable REINECK, DR JEAN-PIERRE Santiago Consulting Unavailabl e REINECK, DR JEAN-PIERRE Santiago Attending Unavailabl e REINECK, DR JEAN-PIERRE Santiago Admitting Unavailabl e RASTEGAR, LILIANA Consulting Unavailable FURLONG, DR ROBERT Santiago Primary Care Unavailable KIERSTEN ., SHARYN LEES Consulting Unavailabl e TUTU HANSON Attending Unavailable TUTU HANSON Admitting Unavailable DO Robert Giron Primary Care Provider WILMA Conley Attending Provider NURIA SANCHEZ Referring Unavailable DRAGAN SEN Primary Care Unavailable FurloRobert augustin DO Primary Care Provider Robert Giron MD Primary Care Provider NONE, XXXX Referring Unavailable MYRNA Carmen Attending Unavailable ChristZINA altamirano Cady Lima Admitting Carolina vailable Christevelia, ZINA Cady Lima Attending Carolina vailable Christevelia, ZINA Cady L Referring Carolina vailable Inessa Grajeda Attending Unavailable POLLY MARIANO Attending Unavailable POLLY MARIANO Attending Unavailable POLLY MARIANO Attending Unavailable DO Andrew Eid Admitting Unavailabl e Andrew Eid Attending Unavailable Andrew Eid Referring Unavailable Andrew Eid Admitting Unavailable Andrew Eid Attending Unavailable ROBERT GIRON Referring Unavailable Cady Alva Attending Unavailable Nuria Sanchez Referring Unavailable MYRNA Alva Admitting Unavailabl e AlvaCady Attending Unavailable Alva, MYRNA Lazar Admitting Unavailabl e FURLONG, ROBERT Referring Unavailable Alva, MYRNA Lazar Admitting Unavailabl e FURLONG, ROBERT Referring Unavailable AlvaCady Attending Unavailable NONE, XXXX Referring Unavailable Elliott SOLIS Admitting Unavailable Elliott SOLIS Attending Unavailable NONE, XXXX Referring Unavailable Christofferson, ZINA Cady L Admitting Carolina vailable Christofferson, ZINA Cady L Attending Carolina vailable NONE, XXXX Referring Unavailable Elliott SOLIS Admitting Unavailable Elliott SOLIS Attending Unavailable NONE, XXXX Referring Unavailable Christofferson, ZINA Cady L Attending Carolina vailable Bree, DO Robert Primary Care Provider [phone] WILMA Conley Attending Provider JavierValarie Attending Unavailable JavierValarie Admitting Unavailable Furlong, Robert Primary Care Unavailable ANDRIA CARTER Attending Unavailable FURLONG, ROBERT G Referring Unavailable NURIA SANCHEZ Attending Unavailable MARTIN ARANGO Attending Unavailable MARTIN ARANGO Attending Unavailable ROSHAN HOLLOWAY Attending Unavailable FURLONG, ROBERT G Referring Unavailable BROWNMARTIN Attending Unavailable MARTIN ARANGO Referring Unavailable MARTIN ARANGO Attending Unavailable MARTIN ARANGO Attending Unavailable NURIA SANCHEZ Attending Unavailable MARTIN ARANGO Attending Unavailable MARTIN ARANGO Referring Unavailable MARTIN ARANGO Attending Unavailable AMRTIN ARANGO Attending Unavailable ИВАН HARMAN Attending Unavailable FURLONG, ROBERT G Referring Unavailable KAYLAH CORONADO Attending Unavailable FURLONG, ROBERT G Referring Unavailable NURIA SANCHEZ Attending Unavailable CATY MALHOTRA Attending Unavailable FURLONG, ROBERT G Referring Unavailable CATY MALHOTRA Attending Unavailable FURLONG, ROBERT G Referring Unavailable RITCHIE KIRBY Attending Unavailab ANDRIA Reed Attending Unavailable FURLONG, ROBERT G Referring Unavailable BROWNMARTIN Attending Unavailable KAYLAH CORONADO Attending Unavailable FURLONG, ROBERT G Referring Unavailable CATY MALHOTRA Attending Unavailable FURLONG, ROBERT G Referring Unavailable FRENCH LEVINE Attending Unavailable ANA CORONADO Attending Unavailable KURT CHAPMAN Referring Unavailable ANA CORONADO Attending Unavailable KUTR CHAPMAN Referring Unavailable ANA CORONADO Attending Unavailable KURT CHAPMAN Referring Unavailable ANA CORONADO Attending Unavailable KURT CHAPMAN Referring Unavailable CONCHITA, MARTIN Jerome Attending Unavailable APLINGCJ Attending Unavailable BROWN, MARTIN Jerome Attending Unavailable APLINGCJ Attending Unavailable LEAH, PASTORA Jerome Attending Unavailable KAYLAH CORONADO Attending Unavailable CJ QUESADA Referring Unavailable LEAHPASTORA ULRICH Attending Unavailable BROWN, MARTIN Jerome Attending Unavailable CONCHITA, MARTIN Jerome Referring Unavailable NURIA SANCHEZ Attending Unavailable ИВАН HARMAN Attending Unavailable FURLONG, ROBERT G Referring Unavailable ИВАН HARMAN Attending Unavailable FURLONG, ROBERT G Referring Unavailable BROWNMARTIN Attending Unavailable FRENCH LEVINE Attending Unavailable FURLONG, ROBERT G Referring Unavailable ALECIAJOEL ZAMORA Attending Unavailable FURLONG, ROBERT G Referring Unavailable FURLONG, ROBERT G Primary Care Unavailable ALECIAJOEL ZAMORA Attending Unavailable FURLONG, ROBERT G Referring Unavailable FURLONG, ROBERT G Primary Care Unavailable FURLONG, ROBERT G Attending Unavailable FURLONG, ROBERT G Referring Unavailable FURLONG, ROBERT G Primary Care Unavailable ALECIAJOEL ZAMORA Attending Unavailable FURLONG, ROBERT G Referring Unavailable FURLONG, ROBERT G Primary Care Unavailable FURLONG, ROBERT G Attending Unavailable FURLONG, ROBERT G Referring Unavailable FURLONG, ROBERT G Primary Care Unavailable FURLONG, ROBERT G Attending Unavailable FURLONG, ROBERT G Referring Unavailable FURLONG, ROBERT G Primary Care Unavailable DUANE NICOLE Attending Unavailable FURLONG, ROBERT G Referring Unavailable FURLONG, ROBERT G Primary Care Unavailable FURLONG, ROBERT G Referring Unavailable FURLONG, ROBERT G Primary Care Unavailable Unavailable Primary Care Provider Unavailabl e FURLONG, ROBERT G Primary Care Unavailable PHIL NASH Attending Unavailable PHIL NASH Referring Unavailable FURLONG, ROBERT G Primary Care Unavailable ALECIAJOEL ZAMORA Referring Unavailable FURLONG, ROBERT G Primary Care Unavailable KURT CHAPMAN Attending Unavailable KURT CHAPMAN Referring Unavailable FURLONG, ROBERT G Primary Care Unavailable ALECIAJOEL ZAMORA Referring Unavailable FURLONG, ROBERT G Primary Care Unavailable FURLONG, ROBERT G Primary Care Unavailable KARLOS GUERRA Attending Unavaila KAMILLE Walker Attending Unavailable KAMILLE JACKSON Referring Unavailable FURLONG, ROBERT G Primary Care Unavailable FURLONG, ROBERT G Referring Unavailable FURLONG, ROBERT G Primary Care Unavailable KURT CHAPMAN Referring Unavailable FURLONG, ROBERT G Primary Care Unavailable KURT CHAPMAN Attending Unavailable KURT CHAPMAN Referring Unavailable FURLONG, ROBERT G Primary Care Unavailable FURLONG, ROBERT G Referring Unavailable FURLONG, ROBERT G Primary Care Unavailable ALEXSANDRA SMART Attending Unavailable FURLONG, ROBERT G Referring Unavailable FURLONG, ROBERT G Primary Care Unavailable SAMI MAHARAJ Attending Unavailable SAMI MAHARAJ Referring Unavailable FURLONG, ROBERT G Primary Care Unavailable SAMI MAHARAJ Admitting Unavailable SAMI MAHARAJ Attending Unavailable FURLONG, ROBERT G Referring Unavailable FURLONG, ROBERT G Primary Care Unavailable Allergies Allergy Classification Reported Allergen(s) Allergy Type Date of Onset Reaction(s) Facility (20 sources) Acetaminophen / HYDROcodone; Translations: [acetaminophen-hydr ocodone] Drug Allergy Unknown (qualifier value), rash [facility] (20 sources) Adhesive Tape; Translations: [Tape] Drug allergy Eruption of skin (disorder), rash [facility] (20 sources) Amitriptyline; Translations: [amitriptyline] Drug Allergy 013 Vomiting (disorder), Abnormal Behavior, Mental Status Change [facility] (20 sources) Amoxicillin; Translations: [amoxicillin] Drug Allergy 015 Vomiting [facility] (20 sources) Amoxicillin / Clavulanate; Translations: [amoxicillin-clavul anate] Drug Allergy 017 Vomiting (disorder), GI Disturbance [facility] (20 sources) atomoxetine; Translations: [atomoxetine] Drug Allergy 019 Palpitations, Other (See Comments) [facility] Comment on above: (atomoxetine) (20 sources) buPROPion; Translations: [bupropion] Drug Allergy 011 Palpitations [facility] (20 sources) Codeine; Translations: [codeine] Drug Allergy Eruption of skin (disorder), Hives, Rash [facility] (20 sources) Dexamethasone; Translations: [dexamethasone] Drug Allergy Menopausal flushing (finding), Unknown [facility] Comment on above: (dexamethasone) (20 sources) Doxycycline; Translations: [doxycycline] Drug Allergy GI Disturbance, Palpitations, Other: See Comments [facility] (20 sources) DULoxetine; Translations: [duloxetine] Drug Allergy 019 Unknown (qualifier value), hives [facility] (20 sources) fluticasone; Translations: [fluticasone] Drug Allergy 014 Unknown (qualifier value) [facility] (20 sources) fluticasone / salmeterol; Translations: [fluticasone-salmet su] Drug Allergy Eruption of skin (disorder), rash, Itching, Palpitations, Unknown [facility] (20 sources) gabapentin; Translations: [gabapentin] Drug Allergy Unknown (qualifier value) [facility] (20 sources) Ibuprofen; Translations: [ibuprofen] Drug Allergy Eruption of skin (disorder), rash, GI Disturbance, Nausea And Vomiting [facility] (20 sources) Ketorolac; Translations: [ketorolac] Drug Allergy 015 Unknown (qualifier value), Other: See Comments [facility] (20 sources) meloxicam; Translations: [meloxicam] Drug Allergy 019 Unknown (qualifier value) [facility] (20 sources) Methadone; Translations: [methadone] Drug Allergy Vomiting (disorder), GI Disturbance, Nausea And Vomiting, Vomiting [facility] (20 sources) milnacipran; Translations: [milnacipran] Drug Allergy 022 Unknown (qualifier value), Other (See Comments) [facility] (20 sources) moxifloxacin; Translations: [moxifloxacin] Drug Allergy 012 Eruption of skin (disorder), rash, Nausea Only, Nausea [facility] (20 sources) NITROFURANTOIN, MACROCRYSTALS / Nitrofurantoin, Monohydrate; Translations: [nitrofurantoin] Drug Allergy Other (See Comments) [facility] (20 sources) OXcarbazepine; Translations: [oxcarbazepine] Drug Allergy 015 Unknown (qualifier value), GI Disturbance, Palpitations, Other: See Comments [facility] (20 sources) PARoxetine; Translations: [paroxetine] Drug Allergy 023 Unknown (qualifier value), Hives [facility] (20 sources) Penicillins; Translations: [penicillins] Drug allergy 012 Unknown (qualifier value), GI Disturbance, Hives, Other (See Comments), Vomiting [facility] (20 sources) pregabalin; Translations: [pregabalin] Drug Allergy 015 Unknown (qualifier value), Other (See Comments), Palpitations, Mental Status Change [facility] (20 sources) rOPINIRole; Translations: [ropinirole] Drug Allergy Altered mental status [facility] (20 sources) Shellfish; Translations: [shellfish] Drug allergy Eruption of skin (disorder), rash [facility] (20 sources) Sulfamethoxazole / Trimethoprim; Translations: [sulfamethoxazole-t rimethoprim] Drug Allergy Vomiting (disorder), Hives, Vomiting [facility] (20 sources) topiramate; Translations: [topiramate] Drug Allergy Vomiting (disorder), GI Disturbance, Other (See Comments), Unknown [facility] (20 sources) Valproate; Translations: [divalproex sodium] Drug Allergy Alopecia (disorder) [facility] (20 sources) Verapamil; Translations: [verapamil] Drug Allergy Vomiting (disorder), GI Disturbance, GI intolerance, Vomiting [facility] (20 sources) ziprasidone; Translations: [ziprasidone] Drug Allergy 014 Unknown (qualifier value), Palpitations, Other (See Comments) [facility] (6 sources) Adhesive Tape; Translations: [Adhesive tape] Allergy to substance contact dermatitis [facility] (20 sources) Fish Containing Products; Translations: [Fish Containing Products] Allergy to substance Rash [facility] (6 sources) Codeine Drug Allergy rash [facility] [employer] Other (6 sources) torodol Propensity to adverse reactions severe abdominal pain [facility] [employer] Other (20 sources) Methocarbamol; Translations: [methocarbamol] Drug Allergy 023 Unknown (qualifier value), Other (See Comments) [facility] (2 sources) Acetaminophen / HYDROcodone Drug Allergy [facility] (2 sources) Amitriptyline Drug Allergy [facility] (2 sources) Amoxicillin / Clavulanate Drug Allergy 013 [facility] (3 sources) atomoxetine; Translations: [Strattera] Drug Allergy 013 [facility] (1 source) atorvastatin Drug Allergy [facility] (2 sources) buPROPion Drug Allergy 013 [facility] (2 sources) carBAMazepine Drug Allergy [facility] (1 source) Clindamycin Drug Allergy 016 [facility] (2 sources) Codeine Drug Allergy 013 [facility] (3 sources) Dexamethasone; Translations: [Decadron] Drug Allergy 013 [facility] (2 sources) Diclofenac Drug Allergy 015 [facility] (2 sources) Doxycycline Drug Allergy [facility] (2 sources) DULoxetine Drug Allergy 014 [facility] (20 sources) Fish derivative; Translations: [FISH DERIVED] Drug allergy (disorder) Hives [facility] (2 sources) Fluorometholone Drug Allergy [facility] (2 sources) fluticasone / salmeterol Drug Allergy [facility] (2 sources) gabapentin Drug Allergy [facility] (2 sources) hydrOXYzine Drug Allergy [facility] (2 sources) Ibuprofen Drug Allergy [facility] (2 sources) Ibuprofen Drug Allergy [facility] (1 source) Ketorolac Drug Allergy [facility] (2 sources) Ketorolac Drug Allergy [facility] (2 sources) meloxicam Drug Allergy [facility] (2 sources) Methadone Drug Allergy [facility] (2 sources) Methocarbamol Drug Allergy [facility] (2 sources) milnacipran Drug Allergy [facility] (2 sources) moxifloxacin Drug Allergy [facility] (2 sources) Nitrofurantoin Drug Allergy [facility] (2 sources) OXcarbazepine Drug Allergy [facility] (2 sources) PARoxetine Drug Allergy [facility] (3 sources) pregabalin; Translations: [Lyrica] Drug Allergy [facility] (2 sources) rOPINIRole Drug Allergy [facility] (1 source) Sulfonamides (Antibiotic) Drug allergy (disorder) [facility] (2 sources) topiramate Drug Allergy [facility] (2 sources) Valproate Drug Allergy [facility] (1 source) Verapamil Drug Allergy [facility] (3 sources) ziprasidone; Translations: [Geodon] Drug Allergy [facility] (16 sources) Adhesive agent; Translations: [ADHESIVE] Propensity to adverse reactions to drug [facility] Work Phone: (20 sources) atomoxetine; Translations: [ATOMOXETINE HCL] Drug Allergy 09-13-2 011 GI Disturbance, Palpitations, Other: See Comments [facility] (20 sources) buPROPion; Translations: [BUPROPION HCL] Drug Allergy GI Disturbance, Palpitations, Other: See Comments [facility] (18 sources) DULoxetine; Translations: [DULOXETINE HCL] Drug Allergy [facility] (20 sources) Eicosapentaenoate; Translations: [EICOSAPENTAENOIC ACID] Drug Allergy [facility] (13 sources) Ketorolac; Translations: [KETOROLAC TROMETHAMINE] Drug Allergy Other (See Comments) [facility] (15 sources) moxifloxacin; Translations: [MOXIFLOXACIN-SOD.C HLORIDE(ISO)] Drug Allergy Nausea, Unknown [facility] (13 sources) PARoxetine; Translations: [PAROXETINE HCL] Drug Allergy [facility] (20 sources) Shellfish; Translations: [SHELLFISH CONTAINING PRODUCTS] Propensity to adverse reactions to drug [facility] (20 sources) Shellfish; Translations: [shellfish derived] Propensity to adverse reactions to drug [facility] (19 sources) Sulfamethoxazole; Translations: [SULFAMETHOXAZOLE] Drug Allergy Other (See Comments) [facility] (18 sources) Valproate; Translations: [DIVALPROEX] Drug Allergy [facility] (18 sources) Valproate; Translations: [VALPROIC ACID] Drug Allergy [facility] (18 sources) Verapamil; Translations: [VERAPAMIL HCL] Drug Allergy [facility] (20 sources) ziprasidone; Translations: [ZIPRASIDONE HCL] Drug Allergy Palpitations, Hives, Other: See Comments [facility] (18 sources) Adhesive Tape-Silicones; Translations: [ADHESIVE TAPE-SILICONES] Propensity to adverse reactions to drug Other (See Comments), Rash [facility] (5 sources) atomoxetine Drug Allergy Palpitations [facility] (5 sources) Ketorolac Propensity to adverse reactions [facility] (5 sources) Ketorolac trometamol Allergy to substance Hives [facility] (5 sources) meloxicam Drug Allergy [facility] (5 sources) Methocarbamol Drug Allergy [facility] (5 sources) milnacipran Drug Allergy Hives [facility] (5 sources) Nitrofurantoin Drug Allergy Hives, Rash [facility] (5 sources) Oxcarbazepine Allergy to substance GI intolerance, Hives, Palpitations [facility] (5 sources) Pregabalin Allergy to substance Palpitations [facility] (5 sources) Shellfish Allergy to substance Rash [facility] (5 sources) Sulfamethoxazole Propensity to adverse reactions [facility] (5 sources) Topiramate Allergy to substance GI intolerance [facility] (5 sources) Valproate Drug Allergy [facility] (5 sources) ziprasidone Drug Allergy Palpitations [facility] (8 sources) Amoxicillin-Pot Clavulanate; Translations: [AMOXICILLIN-POT CLAVULANATE] Drug Intolerance 011 Nausea And Vomiting [facility] (5 sources) Aloe-Sodium Chloride Propensity to adverse reactions [facility] (5 sources) Fish-Derived Products Drug Intolerance [facility] (5 sources) Moxifloxacin Hcl In Nacl Drug Intolerance [facility] (5 sources) Other Propensity to adverse reactions Hives [facility] (5 sources) Wound Dressing Adhesive Drug Allergy [facility] (13 sources) Aloe vera preparation; Translations: [SODIUM CHLORIDE-ALOE VERA] Drug Allergy [facility] (1 source) Fish - dietary; Translations: [Fish] Food allergy (disorder) [facility] (2 sources) Acetaminophen; Translations: [acetaminophen] Drug Allergy [facility] (2 sources) Clavulanate; Translations: [clavulanic acid] Drug Allergy vomiting [facility] (2 sources) HYDROcodone; Translations: [hydrocodone] Drug Allergy [facility] (2 sources) salmeterol; Translations: [salmeterol] Drug Allergy rash [facility] (2 sources) Trimethoprim; Translations: [trimethoprim] Drug Allergy vomiting [facility] (2 sources) Valproate; Translations: [divalproex sodium] Drug Allergy hair loss [facility] (1 source) Adhesive agent Drug allergy (disorder) [facility] (1 source) Amitriptyline Drug Allergy [facility] (1 source) Amoxicillin Drug Allergy [facility] (1 source) atomoxetine Drug Allergy [facility] (1 source) buPROPion Drug Allergy [facility] (1 source) Codeine Drug Allergy [facility] (1 source) Dexamethasone Drug Allergy [facility] (1 source) Doxycycline Drug Allergy [facility] (1 source) DULoxetine Drug Allergy [facility] (1 source) fluticasone Drug Allergy [facility] (1 source) gabapentin Drug Allergy [facility] (1 source) Ibuprofen Drug Allergy [facility] (1 source) Ketorolac Drug Allergy [facility] (1 source) meloxicam Drug Allergy [facility] (1 source) Methadone Drug Allergy [facility] (1 source) milnacipran Drug Allergy [facility] (1 source) moxifloxacin Drug Allergy [facility] (1 source) OXcarbazepine Drug Allergy [facility] (1 source) PARoxetine Drug Allergy [facility] (1 source) pregabalin Drug Allergy [facility] (1 source) rOPINIRole Drug Allergy [facility] (1 source) Sulfamethoxazole Drug Allergy [facility] (1 source) topiramate Drug Allergy [facility] Rep[facility] (1 source) Verapamil Drug Allergy [facility] (1 source) ziprasidone Drug Allergy [facility] (3 sources) Dexamethasone; Translations: [DEXAMETHASONE (PF)] Drug Allergy [facility] (3 sources) Sulfamethoxazole / Trimethoprim; Translations: [SULFAMETHOXAZOLE-T RIMETHOPRIM] Drug Allergy [facility] (3 sources) NITROFURANTOIN MONOHYD/M-CRYST; Translations: [NITROFURANTOIN MONOHYD/M-CRYST] Propensity to adverse reactions to drug (disorder) [facility] (3 sources) FLUTICASONE PROPION-SALMETEROL; Translations: [FLUTICASONE PROPION-SALMETEROL] Propensity to adverse reactions to drug (disorder) 017 [facility] (2 sources) Adhesive Tape Propensity to adverse reactions to substance 015 Rash [facility] (1 source) Aloe Extract Drug Allergy [facility] Healthcare Medications Current Medications Medication Drug Class(es) Dates [...] Blood glucose Start Date: 10/25/21 Status: Ordered [id number] actuat albuterol 0.09 mg/actuat metered dose [...] 6 (six) hours as needed for wheezing. Active albuterol (2.5 M G/3ML) 0.083% nebulizer solution Take 2.5 mg by nebulization every 6 (six) hours. Active take 1 puff(s) by in halation in the morning, then take 1 puff(s) by inhalation in the evening, then take 1 puff(s) by inhalation at bedtime Ventolin HFA 108 (90 Base) MCG/ACT inhal er Inhale 1 puff in the morning and 1 puff in the evening and 1 puff before bedtime. Active take 1 puff(s) by in halation every four hours as needed Proventil HFA 108 (90 Base) MCG/ACT 1 pu ff as needed Inhalation every 4 hrs Active Albuterol Sulfat e (2.5 MG/3ML) 0.083% 3 mL as needed Inhalation every 6 hrs for 30 days Active albuterol 0.833 mg/ml / ipratropium bromide 0.167 mg/ml inhalation solution (15 sources) Anticholinergic, beta2-Adrenergic Agonist take 3 mL by inhalation every four hours as needed ipratropium-albuteroL (DUONEB) 0.5 mg-3 mg(2.5 mg base)/3 mL nebulizer Inhale 3 mL by nebulization every 4 (four) hours as needed. Active ipratropium-albu teroL (DUONEB) 0.5 mg-3 mg(2.5 mg base)/3 mL nebulizer alendronic acid 70 mg oral tablet (20 sources) Bisphosphonate Start: 10-08-2022 take 1 tablet by mouth every week alendronate (FOSAMAX) 70 mg tablet TAKE ONE TABLET BY MOUTH ONCE WEEKLY 30 MINUTES BEFORE THE FIRST FOOD, BEVERAGE, OR MEDICINE OF THE DAY WITH PLAIN WATER 10/08/2022 Active ALPRAZolam 1 mg oral tablet (20 sources) Benzodiazepine Start: 04-25-2024 End: 05-27-2024 take 1 tablet by mouth three times daily as needed for anxiety ALPRAZolam (XANAX) 1 mg tablet Indications: Anxiety take one tablet by mouth three times a day as needed for anxiety 90 tablet 1 05/27/2024 Active Start: 11-01-2023 take 1 tablet by colin th three times daily as needed for anxiety [...] oral tablet (20 sources) Atypical Antipsychotic Start: 03-21-2024 take 1 tablet by mouth once daily ARIPiprazole (ABILIFY) 15 mg tablet take one tablet by mouth once daily 30 tablet 5 03/21/2024 Active Start: 11-16-2022 End: 09-26-2023 take 15 mg [...] (see comment) Start Date: 04/28/18 Status: Ordered take 2 tablets by mo uth once daily in the morning ARIPiprazole (ABILIFY) 15 mg tablet Indications: Lumbago , Left shoulder pain , History of fibromyalgia , History of COPD , History of gastroesophageal reflux (GERD) , History of anxiety disorder , History of depression , History of attention deficit hyperactivity disorder (ADHD) , History of bipolar disorder , Chronic, continuous use of opioids Take 30 mg by mouth once daily. In AM Active aspirin 81 mg delayed release oral tablet (20 sources) Platelet Aggregation Inhibitor, Nonsteroidal Anti-inflammatory Drug Start: 07-01-2023 take 1 tablet by mouth in the morning aspirin 81 mg Take 1 tablet (81 mg total) by mouth in the morning. 07/01/2023 Active Start: 06-14-2021 take 81 mg [...] day(s), # 6 tab(s), Refills(s) 0, Pharmacy: [id number], 163, cm, 10/20/22 10:48:00 EST, Height/Length [...] day(s), # 28 cap(s), Refills(s) 0, Pharmacy: [id number], 163, cm, 10/29/22 14:56:00 EDT, Height/Length Dosing, 77.3, kg, 10/29/22 14:56:00 EDT, Weight Dosing Start Date: 10/29/22 Stop Date: 11/26/22 Status: Ordered biotin 10 mg oral capsule (5 sources) Start: 04-27-2024 End: 04-22-2025 take 1 capsule by mouth in the morning biotin 10 MG capsule Indications: Intractable chronic migraine without aura and without status migrainosus (CMS/HCC) , Diabetic peripheral neuropathy (CMS/HCC) Take 1 capsule (10 mg) by mouth in the morning and 1 capsule (10 mg) before bedtime. 60 capsule 11 04/27/2024 04/22/2025 Active Start: 04-27-2024 take 1 tablet by colin th at bedtime biotin 10 mg tablet Take 1 tablet by mouth. TAKE ONE TABLET BY MOUTH IN THE MORNING AND BEFORE BEDTIME 04/27/2024 Active blood-glucose meter,continuo us (DEXCOM G6 MOTION PICTURE EQUIPMENT SUPERVISOR) misc (14 sources) Start: 10-24-2022 blood-glucose meter,continuous (DEXCOM G6 MOTION PICTURE EQUIPMENT SUPERVISOR) misc Indications: Type 2 diabetes mellitus without complication, without long-term current use of insulin ([facility]) 1 unit yearly 1 each 10/24/2022 Active Start: 10-24-2022 blood-glucose meter,continuous (DEXCOM G6 MOTION PICTURE EQUIPMENT SUPERVISOR) misc Indications: Type 2 diabetes mellitus without complication, without long-term current use of insulin ([facility]) 1 unit yearly 1 each 0 10/24/2022 Active blood-glucose sensor (DEXCOM G6 SENSOR) device (15 sources) Start: 11-01-2023 blood-glucose sensor (DEXCOM G6 SENSOR) device Indications: Type 2 diabetes mellitus without complication, without long-term current use of insulin ([facility]) 1 Unit by miscellaneous route every 10 days. 3 each 5 11/01/2023 Active Start: 03-31-2023 End: 10-30-2023 blood-glucose sensor (DEXCOM G6 SENSOR) device Indications: Type 2 diabetes mellitus without complication, without long-term current use of insulin ([facility]) 1 Unit by miscellaneous route every 10 days. 3 each 5 03/31/2023 10/30/2023 Discontinued (Reorder) Start: 03-31-2023 blood-glucose sensor (DEXCOM G6 SENSOR) device Indications: Type 2 diabetes mellitus without complication, without long-term current use of insulin (CMS-HCC) 1 Unit by miscellaneous route every 10 days. 3 each 03/31/2023 Active blood-glucose transmitter (DEXCOM G6 TRANSMITTER) device (15 sources) Start: 11-01-2023 blood-glucose transmitter (DEXCOM G6 [...] Ordered calcium carbonate 1500 mg oral tablet (20 sources) Start: 11-06-2022 take 1 tablet by mouth twice daily calcium carbonate (OS-LARRY) 600 mg (1,500 mg) tablet TAKE ONE TABLET BY MOUTH TWICE A DAY FOR 30 DAYS 11/06/2022 Active take [facility] 1500 (600 Ca) MG tablet Take 1,500 mg by mouth in the morning and 1,500 mg before bedtime. 0 Active Calcium Carbonate / vitamin D3 (2 sources) calcium carbonat e/vitamin D3 (CALCIUM 500 + D, D3, ORAL) Take by mouth one time a week. Active carvedilol 25 mg oral tablet (20 sources) alpha-Adrenergic Laz, beta-Adrenergic Laz Start: 2 End: 3 take 1 tablet by mouth in the morning carvedilol (Coreg) 25 MG tablet Take 25 mg by mouth in the morning and 25 mg before bedtime. 01/03/2023 Active Start: 06-14-2021 End: 10-27-2022 take 12.5 mg by mouth twice daily Carvedilol Active 12.5 MG PO Twice daily June 14, 2021 12:00am cetirizine hydrochloride 10 mg oral tablet (20 sources) Histamine-1 Receptor Antagonist Start: 02-24-2015 End: 05-27-2024 take 1 tablet by mouth once daily cetirizine (ZyrTEC) 10 mg tablet take one tablet by mouth once daily 30 tablet 11 05/27/2024 Active take 1 capsule by mo [facility] once daily in the morning Cetirizine (ZYRTEC) 10 mg cap Indication s: Lumbago , Left shoulder pain , History of fibromyalgia , History of COPD , History of gastroesophageal reflux (GERD) , History of anxiety disorder , History of depression , History of attention deficit hyperactivity disorder (ADHD) , History of bipolar disorder , Chronic, continuous use of opioids Take 10 mg by mouth once daily. In AM Active cholecalciferol 0.125 mg oral tablet (2 sources) Vitamin D take 1 tablet by mouth once daily cholecalciferol (VITAMIN D-3) 5,000 unit tab Take 5,000 Units by mouth once daily. Active cholestyramine resin 4000 mg powder for oral suspension (10 sources) Bile Acid Sequestrant Start: 023 cholestyramine (QUESTRAN) 4 gram powder Indications: Mixed hyperlipidemia Take 9 g of bulk powder (4 g total) by mouth in the morning and 9 g of bulk powder (4 g total) in the evening. Take with meals. 378 g 1 06/06/2023 Active clomiPRAMINE hydrochloride 50 mg oral capsule (7 sources) Tricyclic Antidepressant take 1 capsule by mouth once daily clomiPRAMINE (Anafranil) 50 MG capsule Take 50 mg by mouth 1 (one) time each day at the same time. Active take 150 mg by mouth once daily at bedtime CLOMIPRAMINE HCL (ANAFRANIL ORAL) Indica tions: Lumbago , Left shoulder pain , History of fibromyalgia , History of COPD , History of gastroesophageal reflux (GERD) , History of anxiety disorder , History of depression , History of attention deficit hyperactivity disorder (ADHD) , History of bipolar disorder , Chronic, continuous use of opioids Take 150 mg by mouth daily at bedtime. Active Continuous Blood Gluc Wooden Frame Builder (Dexcom G6 hearing instrument specialist) device (4 sources) Start: 10-24-2022 Continuous Blood Gluc Wooden Frame Builder (Dexcom G6 hearing instrument specialist) device 1 UNIT YEARLY 0 10/24/2022 Active Continuous Blood Gluc Sensor (Dexcom G6 Sensor) misc (4 sources) Start: 01-21-2023 Continuous Blood Gluc Sensor (Dexcom G6 Sensor) misc USE 1 UNIT DIRECTED AND CHANGE EVERY 10 DAYS 0 01/21/2023 Active Continuous Glucose Transmitter (Dexcom G6 transmitter) misc (1 source) Start: 01-27-2024 Continuous Glucose Transmitter (Dexcom G6 transmitter) misc 1 UNIT BY MISCELLANEOUS ROUTE EVERY 3 (THREE) MONTHS. 01/27/2024 Active cyclobenzaprine hydrochloride 10 mg oral tablet [...] completed) dicyclomine hydrochloride 20 mg oral tablet (12 sources) Anticholinergic Start: 12-02-2023 dicyclomine (Bentyl) 20 MG tablet TAKE 1 TABLET BY MOUTH EVERY 6 TO 8 HOURS NEEDED FOR CRAMPS 12/02/2023 Active Start: 06-14-2021 take 20 mg by mouth four times daily Dicyclomine Active 20 MG PO Four times daily June 14, 2021 12:00am take 1 tablet by colin every eight hours Dicyclomine HCl 20 MG 1 tablet Orally Three times a day Active 24 hr dilTIAZem hydrochloride 120 mg extended release oral capsule (20 sources) Calcium Channel Laz Start: 03-27-2024 take 1 capsule by mouth once daily, then take 1 capsule by mouth every twenty-four hours dilTIAZem CD (Cardizem CD) 120 MG 24 hr capsule Take 120 mg by mouth Daily 03/27/2024 Active Start: 07-05-2023 diltiazem CD 1 20 mg/24 hours Cap-ER 120 mg = 1 cap(s), Oral, Daily, # 30 cap(s), Refills(s) 5, Pharmacy: [id number], 163, cm, 01/01/24 11:13:00 EDT, Height/Length Dosing, 75.6, kg, 12/31/23 13:01:00 EDT, Weight Dosing Start Date: 01/01/24 Status: Ordered Start: 07-05-2023 take 1 capsule by mo [facility] every twenty-four hours dilTIAZem CD (CARDIZEM CD) 120 mg 24 hr capsule Take 1 capsule (120 mg total) by mouth. 07/05/2023 Active diphenhydrAMINE hydrochloride 25 mg oral capsule (15 sources) Histamine-1 Receptor Antagonist Start: 01-02-2023 take 1 capsule by mouth every six hours as needed diphenhydrAMINE (BenadryL) 25 mg capsule Indications: Rash in adult Take 1 capsule (25 mg total) by mouth every 6 (six) hours as needed for itching or allergies. MAY CAUSE DROWSINESS. HOLD hydroxyzine while taking this medication. 15 capsule 01/02/2023 Active ergocalciferol 1.25 mg oral capsule (20 sources) Provitamin D2 Compound Start: 10-25-2021 End: 05-27-2024 take 1 capsule by mouth every week ergocalciferol (VITAMIN D2) 1,250 mcg (50,000 unit) capsule take one capsule by mouth once weekly 4 capsule 5 05/27/2024 Active Start: 10-25-2021 take 1 capsule by mo uth every week ergocalciferol 50,000 intl units Cap 50,000 International_Unit = 1 cap(s), Oral, qWeek, Refills(s) 0, Prophylaxis Start Date: 10/25/21 Status: Ordered Start: 06-14-2021 take 82473 ug by colin th every week Ergocalciferol (Vitamin D2) Active 83837 MCG PO every week June 14, 2021 [...] day(s), # 90 tab(s), Refills(s) 0, Pharmacy: [id number], 163, cm, 10/29/22 14:56:00 EDT, Height/Length Dosing, 77.3, kg, 10/29/22 14:56:00 EDT, Weight Dosing Start Date: 10/29/22 Stop Date: 01/27/23 Status: Ordered flash glucose scanning reader (FREESTYLE LUCERO 14 DAY READER) misc (5 sources) Start: 02-28-2024 flash glucose scanning reader (FREESTYLE LUCERO 14 DAY READER) misc 1 Unit by miscellaneous route in the morning. 1 each 02/28/2024 Active flash glucose sensor (FREESTYLE LUCERO 14 DAY SENSOR) kit (5 sources) Start: 02-27-2024 flash glucose sensor (FREESTYLE LUCERO 14 DAY SENSOR) kit 1 each by miscellaneous route every 14 (fourteen) days. 6 kit 1 02/27/2024 Active 1.5 ml fremanezumab-vfrm 150 mg/ml auto-injector (20 sources) Start: 12-24-2023 End: 12-23-2024 fremanezumab (Ajovy) 225 MG/1.5ML auto-injector Indications: Intractable chronic migraine without aura and without status migrainosus (CMS/HCC) Inject 1 pen (225 mg) under the skin every 30 (thirty) days 3 each 3 12/24/2023 12/23/2024 Active Start: 02-09-2023 inject 1.5 mL by sub cutaneous injection every 30 days Ajovy 225 MG/1.5ML auto-injector INJECT 1.5ML SUBCUTANEOUSLY EVERY 30 DAYS 0 02/09/2023 Active Start: 09-14-2022 Ajovy Refills( s) 0 Start Date: 09/14/22 Status: Ordered Start: 10-25-2021 fremanezumab-v frm (AJOVY AUTOINJECTOR) 225 mg/1.5 mL 1.5 mL (225 mg total) every 30 (thirty) days. 10/25/2021 Active Start: 10-25-2021 inject 225 mg [...] once daily furosemide (LASIX) 20 mg tablet take one tablet by mouth once daily 30 tablet 11 12/21/2023 Active glimepiride 4 mg oral tablet (20 sources) Sulfonylurea Start: 09-04-2021 take 1 tablet by mouth once daily glimepiride 4 mg Tab 4 mg = 1 tab(s), Oral, Daily, Refills(s) 0, Blood glucose Start Date: 09/04/21 Status: Ordered Start: 06-14-2021 take 4 mg by mouth twice daily Glimepiride Active 4 MG PO Twice daily June 14, 2021 12:00am glycopyrrolate 2 mg oral tablet (1 source) Start: 03-27-2024 take 1 tablet by mouth at bedtime glycopyrrolate (Robinul) 2 MG tablet TAKE 1 TABLET (2 MG) BY MOUTH AT BEDTIME 03/27/2024 Active hydrOXYzine hydrochloride 10 mg oral tablet (20 [...] 0, Anxiety Start Date: 10/12/19 Status: Ordered take 1 tablet by colin th every six hours as needed hydrOXYzine HCl (ATARAX) 50 mg tablet Take 50 mg by mouth every 6 hours as needed. Active inject 1 mL by intra muscular injection every six hours as needed hydrOXYzine HCl 50 MG/ML 1 ml as needed Intramuscular every 6 hrs Active inject 1 mL by intra muscular injection every six hours as needed hydrOXYzine HCl 50 MG/ML 1 ml as needed Intramuscular every 6 hrs Active imipramine hydrochloride 25 mg oral tablet (5 sources) Tricyclic Antidepressant Start: 05-18-2024 take 1 tablet by mouth once daily imipramine (TOFRANIL) 25 mg tablet Indications: Fibromyalgia Take 1 tablet (25 mg total) by mouth nightly. 30 tablet 5 05/18/2024 Active Injovy (3 sources) Start: 12-07-2021 Injovy Active 1 syringe IM every month December 07, 2021 12:00am isopropyl alcohol 0.7 ml/ml medicated pad (6 sources) Start: 05-06-2024 alcohol swabs (ALCOHOL PREP PADS) pads, medicated Indications: Type 2 diabetes mellitus with hyperglycemia, without long-term current use of insulin (CMS-HCC) Apply 1 Pad topically every 14 (fourteen) days. Clean area prior to placing sensor 40 each 05/06/2024 Active Start: 03-10-2024 Alcohol Swabs (Global Alcohol Prep Ease) 70 % pads APPLY 1 PAD TOPICALLY EVERY 14 (FOURTEEN) DAYS. 03/10/2024 Active ammonium lactate 120 mg/ml topical lotion (16 sources) Start: 10-22-2022 End: 06-27-2024 ammonium lactate (LAC-HYDRIN) 12 % lotion Apply topically 2 (two) times a day. 400 g 10/22/2022 Active lemborexant 5 mg oral tablet (5 sources) Start: 05-18-2024 lemborexant 5 mg tablet Indications: Fibromyalgia One tab at 8 PM 30 tablet 5 05/18/2024 Active lidocaine 0.05 mg/mg medicated patch (15 sources) Antiarrhythmic, Amide Local Anesthetic Start: 01-31-2024 apply 1 dose transdermal route once daily, then apply 1 dose transdermal route every twelve hours lidocaine (LIDODERM) 5 % Place 1 patch on the skin daily. Remove & Discard patch within 12 hours or as directed by MD 30 patch 01/31/2024 Active Start: 07-22-2023 lidocaine (Lid oderm) 5 % patch Indications: Diabetic peripheral neuropathy [...] oral capsule (20 sources) Opioid Agonist Start: 05-28-2024 take 1 capsule by mouth every twenty-four hours loperamide (IMODIUM) 2 mg capsule TAKE 2 CAPSULES BY MOUTH AFTER 1ST LOOSE STOOL AND 1 CAPSULE AFTER EACH NEXT BOWEL MOVEMENT; DO NOT EXCEED 16MG (8 CAPSULES) IN 24 HOURS 20 capsule 1 05/28/2024 Active Start: 12-20-2022 End: 05-28-2024 take 1 capsule by mouth every twenty-four hours loperamide (IMODIUM) 2 mg capsule TAKE 2 CAPSULES BY MOUTH AFTER 1ST LOOSE STOOL AND 1 CAPSULE AFTER EACH NEXT BOWEL MOVEMENT; DO NOT EXCEED 16MG (8 CAPSULES) IN 24 HOURS 20 capsule 1 02/12/2024 05/28/2024 Discontinued Start: 10-29-2022 End: 11-28-2022 Imodium 2 mg oral capsule 2 mg = 1 cap(s), Oral, q6hr, PRN as needed for loose stool, not to exceed 8 capsules, or 16 mg, in 24 hours, X 30 day(s), # 120 cap(s), Refills(s) 0, Pharmacy: [id number], 163, cm, 10/29/22 14:56:00 EDT, Height/Length [...] stool, # 120 tab(s), Refills(s) 6, Pharmacy: [id number], 162, cm, 03/30/20 10:05:00 [...] times a day as needed for dizziness. 20 tablet 1 12/09/2023 Active Start: 10-22-2018 take 25 mg by mouth four times daily as needed for dizziness meclizine 25 mg, Oral, QID, PRN Dizziness Start Date: 10/22/18 Status: Ordered take 1 tablet by colin th every twenty-four hours Meclizine HCl 25 MG 1 tablet as needed Orally Once a day Active metFORMIN hydrochloride 500 mg oral tablet (20 sources) Biguanide Start: 04-25-2024 take 1 tablet by mouth once daily at breakfast metFORMIN (GLUCOPHAGE) 500 mg tablet Indications: Type 2 diabetes mellitus with diabetic mononeuropathy, without long-term current use of insulin ([facility]) TAKE 1 TABLET (500 MG TOTAL) BY MOUTH DAILY WITH BREAKFAST. 30 tablet 11 04/25/2024 Active Start: 05-06-2023 End: 10-30-2023 take 1 tablet by mouth once daily at breakfast metFORMIN (GLUCOPHAGE) 500 mg tablet Indications: Type 2 diabetes mellitus with diabetic mononeuropathy, without long-term current use of insulin ([facility]) Take 1 tablet (500 mg total) by mouth daily with breakfast. 30 tablet 5 11/01/2023 Active Start: 09-20-2022 take 1 tablet by [...] DAILY IN THE EVENING 30 tablet 11 03/21/2024 Active tqgpofcb-tyqh-XQ-c alcium &mins (THERAGRAN-M) 9 mg iron-400 mcg tablet (10 sources) dvrmacuf-ndwt-[id number] -c alcium &mins (THERAGRAN-M) 9 mg iron-400 mcg tablet Take 1 tablet by mouth in the morning. Active gelnuxsf-ujcr-SE -calcium &mins (THERAGRAN-M) 9 mg iron-400 mcg tablet Take 1 tablet by mouth in the morning. 0 Active nabumetone 750 mg oral tablet (17 sources) Nonsteroidal Anti-inflammatory Drug Start: 03-04-2023 End: 01-05-2024 nabumetone 750 mg Tab Refills(s) 0 Start Date: 09/17/23 Status: Ordered Naltrexone (1 source) Opioid Antagonist Start: 03-05-2024 take 1 tablet by mouth once daily naltrexone 1.5 mg oral capsule See Instructions, take one tablet daily, # 30 tab(s), Refills(s) 0, Pharmacy: [facility], 163, cm, 03/05/24 15:26:00 EDT, Height/Length Dosing, 72.8, kg, 03/05/24 15:26:00 EDT, Weight Dosing Start Date: 03/05/24 Status: Ordered naratriptan 2.5 mg oral tablet (20 sources) Serotonin-1b and Serotonin-1d Receptor Agonist Start: 10-12-2019 naratriptan 2.5 mg Tab 2.5 mg = 1 tab(s), Oral, As Directed, PRN Migraine headache, # 9 tab(s), Refills(s) 0 Start Date: 10/12/19 Status: Ordered nebulizer accessories [facility] (15 sources) Start: 01-25-2023 nebulizer accessories [facility] Indications: Chronic obstructive pulmonary disease, unspecified COPD type (CMS-HCC) 1 Tube by inhal. via small vol.nebulizer route every 6 (six) months. 1 each 1 01/25/2023 Active nebulizers [facility] (15 sources) Start: 01-25-2023 nebulizers [facility] Indications: Chronic obstructive pulmonary disease, unspecified COPD type (CMS-HCC) 1 Unit by miscellaneous route every 6 (six) months. 1 each 1 01/25/2023 Active nortriptyline 25 mg oral capsule (20 sources) Tricyclic Antidepressant Start: 09-20-2022 End: 11-21-2023 nortriptyline (Pamelor) 25 MG capsule Take 25 mg by mouth in the morning and 25 mg at noon and 25 mg in the evening and 25 mg before bedtime. 09/20/2022 Active Start: 06-14-2021 take 75 mg by mouth [...] 0 Start Date: 07/10/21 Status: Ordered nystatin [id number] unt/ml oral suspension (20 sources) Polyene Antifungal Start: 03-24-2024 take 5 mL by mouth four times daily at bedtime nystatin (Mycostatin) 964391 UNIT/ML suspension TAKE 5ML BY MOUTH FOUR TIMES A DAY (MORNING, NOON, EVENING, BEDTIME) FOR 5 DAYS. 03/24/2024 Active Start: 06-27-2023 End: 08-18-2023 apply 15 g topically twice daily nystatin (MYCOSTATIN) cream APPLY TO AFFECTED AREA VIA TOPICAL ROUTE TWICE A DAY 15 g 08/18/2023 Active Start: 06-18-2023 End: 08-23-2023 nystatin (Mycostatin) 255144 UNIT/ML suspension TAKE 5ML FOUR TIMES A DAY IN AM, NOON, EVENING, AND AT BEDTIME FOR 7 DAYS 0 06/18/2023 Active nystatin [id number] unt/ml / triamcinolone acetonide 1 mg/ml topical cream (4 sources) Polyene Antifungal, Corticosteroid Start: 05-08-2022 nystatin-triamcinolone (Mycolog II) cream APPLY 1 APPLICATION TOPICALLY IN THE MORNING AND 1 APPLICATION AT NOON AND 1 APPLICATION IN THE EVENING AND 1 APPLICATION BEFORE BEDTIME. 0 05/08/2022 Active omeprazole 40 mg delayed release oral capsule (20 sources) Proton Pump Inhibitor Start: 03-21-2024 take 1 capsule by mouth once daily before mealtime omeprazole (PriLOSEC) 40 mg capsule TAKE ONE CAPSULE BY MOUTH ONCE DAILY BEFORE MEAL 30 capsule 5 03/21/2024 Active Start: 11-06-2023 take 40 mg by mouth once daily omeprazole 40 mg, Oral, Daily, Refills(s) 0 Start Date: 11/06/23 Status: Ordered Start: 06-22-2015 End: 09-26-2023 take 1 capsule by mouth once daily before mealtime omeprazole (PriLOSEC) 40 mg capsule TAKE ONE CAPSULE BY MOUTH ONCE DAILY BEFORE MEAL 30 capsule 5 03/21/2024 Active take 1 capsule by mo uth once daily PriLOSEC 40 MG 1 capsule Orally Once a day Active ondansetron 4 mg disintegrating oral tablet (20 sources) Serotonin-3 Receptor Antagonist Start: 12-16-2023 take 1 tablet by mouth every eight hours as needed for nausea and vomiting ondansetron ODT (ZOFRAN ODT) 4 mg disintegrating tablet Dissolve 1 tablet (4 mg total) on tongue every 8 (eight) hours as needed for nausea or vomiting. 10 tablet 1 12/16/2023 Active Start: 06-06-2023 End: 09-08-2023 take 1 [...] 10 DAYS NEEDED FOR NAUSEA AND VOMITING 10/29/2022 Active Start: 06-14-2021 take 4 mg by mouth e very six hours Ondansetron Active 4 MG PO Q6H June 14, 2021 12:00am Zofran Active 12 hr orphenadrine citrate 100 mg extended release oral tablet (8 sources) Muscle Relaxant Start: 05-18-2024 take 1 tablet by mouth in the morning, then take 1 tablet by mouth every twelve hours in the evening orphenadrine (NORFLEX) 100 mg 12 hr tablet Indications: Fibromyalgia Take 1 tablet (100 mg total) by mouth in the morning. One tab at 8 PM. 30 tablet 2 05/18/2024 Active Start: 06-14-2021 End: 12-07-2021 take 100 mg by mouth twice daily Orphenadrine Citrate Discontinued 100 MG PO Twice daily June 14, 2021 12:00am December 07, 2021 10:33am Oxygen - for Home (20 sources) Start: [...] Date: 09/20/22 Status: Ordered polyethylene glycol 3350 [id number] mg / potassium chloride 1480 mg / sodium bicarbonate 5720 mg / sodium chloride 81661 mg powder for oral solution (11 sources) Osmotic Laxative Start: 09-14-2022 take 2 doses by mouth once daily NuLYTELY Aquino oral powder for reconstitution See Instructions, 2 EA, Refill(s) 0, 240 mL Oral Daily, [facility]5, 163, cm, 09/14/22 13:14:00 EST, Height/Length Dosing, 79.6, kg, 09/14/22 13:14:00 EST, Weight Dosing Start Date: 09/14/22 Status: Ordered Start: 05-09-2022 NuLYTELY Cherr y oral powder for reconstitution See Instructions, 1 EA, Refill(s) 0, Prior to colonoscopy., [facility]5, 163, cm, 05/09/22 13:44:00 EDT, Height/Length [...] 1 tablet by colin th once daily at bedtime pramipexole (MIRAPEX) 1.5 mg tablet Indications: Lumbago , Left shoulder pain , History of fibromyalgia , History of COPD , History of gastroesophageal reflux (GERD) , History of anxiety disorder , History of depression , History of attention deficit hyperactivity disorder (ADHD) , History of bipolar disorder , Chronic, continuous use of opioids Take 1.5 mg by mouth daily at bedtime. Active predniSONE 10 mg oral tablet (1 [...] Ordered promethazine hydrochloride 25 mg oral tablet (20 sources) Phenothiazine Start: 04-04-2020 take 1 tablet by mouth three times daily as needed for nausea and vomiting promethazine 25 mg Tab See Instructions, 1 tab(s) Oral TID as needed for nausea and vomiting, # 90 tab(s), Refills(s) 0, Pharmacy: [facility] 1155, 162, cm, 05/15/22 13:20:00 EDT, Height/Length Dosing, 79, kg, 05/15/22 13:20:00 EDT, Weight Dosing Start Date: 09/05/22 Status: Ordered rifAXIMin 550 mg oral tablet (9 sources) Rifamycin Antibacterial Start: 06-14-2021 take 1 tablet by mouth three times daily Rifaximin (Xifaxan) 550 mg tablet Active 550 MG PO Three times daily June 14, 2021 12:00am take 1 tablet by mouth every twe lve hours Xifaxan 550 MG 1 tablet Orally Twice a day Active rimegepant 75 mg disintegrat ing oral tablet (20 sources) Start: 05-08-2024 End: 06-07-2024 Rimegepant Sulfate (Nurtec) 75 MG tablet dispersible Indications: Intractable chronic migraine without aura and without status migrainosus (CMS/HCC) Place 75 mg under the tongue if needed (at the onset of migraine) 8 tablet 11 05/08/2024 06/07/2024 Active Start: 11-06-2023 take 1 tablet under the tongue every twenty-four hours Nurtec ODT 75 mg oral tablet, disintegrating 75 mg = 1 tab(s), SubLingual, q24hr, Refills(s) 0 Start Date: 11/06/23 Status: Ordered Start: 06-14-2021 take 1 tablet by colin th once daily Rimegepant (Nurtec Odt) 75 mg tablet,disintegrating Active 75 MG PO Daily June 14, 2021 12:00am simvastatin 40 mg oral tablet (2 sources) HMG-CoA Reductase Inhibitor take 1 tablet by mouth once daily at bedtime simvastatin (ZOCOR) 40 mg tablet Indications: Lumbago , Left shoulder pain , History of fibromyalgia , History of COPD , History of gastroesophageal reflux (GERD) , History of anxiety disorder , History of depression , History of attention deficit hyperactivity disorder (ADHD) , History of bipolar disorder , Chronic, continuous use of opioids Take 40 mg by mouth daily at bedtime. Active solifenacin succinate 10 mg oral tablet (20 sources) Cholinergic Muscarinic Antagonist Start: 01-28-20 take 1 tablet by mouth in the morning solifenacin (VESICARE) 10 mg tablet Take 1 tablet (10 mg total) by mouth in the morning. 01/28/2024 Active Start: 09-17-2023 take 1 tablet by colin th once daily Vesicare 10 mg Tab 10 mg = 1 tab(s), Oral, Daily, # 90 tab(s), Refills(s) 3, Pharmacy: [facility] 1155, 163, cm, 09/17/23 8:25:00 EST, Height/Length Dosing, 81, kg, 09/17/23 8:25:00 EST, Weight Dosing Start Date: 09/17/23 Status: Ordered Start: 09-04-2021 take 1 tablet by colin once daily Vesicare 10 mg Tab 10 mg = 1 tab(s), Oral, Daily, # 30 tab(s), Refills(s) 5, Pharmacy: [facility] 1155, 163, cm, 04/09/22 14:41:00 EDT, Height/Length [...] take 1 tablet by mouth in the morning, then take 1 tablet by mouth at bedtime thiamine mononitrate, vit B1, (VITAMIN B-1, MONONITRATE,) 100 mg tablet Take 1 tablet (100 mg total) by mouth in the morning and 1 tablet (100 mg total) before bedtime. 04/30/2024 Active tiZANidine 4 mg oral tablet (18 sources) [...] (6 sources) Vitamin D 50,000 U Active zonisamide 25 mg oral capsule (1 source) Anti-epilepti c Agent Start: 05-11-2024 End: 05-11-2025 take 1 capsule by mouth once daily zonisamide (Zonegran) 25 MG capsule Indications: Intractable chronic migraine without aura and without status migrainosus (CMS/HCC) , Diabetic peripheral neuropathy (CMS/HCC) Take 1 capsule (25 mg) by mouth Daily 30 capsule 11 05/11/2024 05/11/2025 Active Completed/Discontinued Medications Medication Drug Class(es) Dates [...] 10:28am takes on the of every month QUEtiapine 50 mg oral tablet (3 sources) [...] Documented Da te Episodic/Chronic Acquired foot deformities (20 sources) Hammer toe; [...] disorder, unspecified type] Onset: 2 02-14-2015 Chronic Cardiac dysrhythmias (1 source) Supraventricular tachycardia; Translations: [...] congenital anomalies (20 sources) Finding of esophagus 09-21-2022 Chronic Diseases of white blood cells (20 sources) Leukocytosis; Translations: [Elevated white blood cell count, unspecified] Onset: 3 11-12-2022 Chronic Disorders of lipid metabolism (20 sources) Hypercholesterolemia; Translations: [Hyperlipidemia] Onset: 4 09-11-2018 Chronic E Codes: Fall (1 source) Unspecified fall, initial encounter; Translations: [UNSPECIFIED FALL INITIAL ENCOUNTER] Onset: 3 Episodic Esophageal disorders (20 sources) Gastroesophageal reflux disease; Translations: [Diffuse spasm of esophagus] Onset: 4 01-23-2020 Chronic Esophageal disorders (6 sources) Dilatation of esophagus; Translations: [Dilatation of esophagus] Onset: 4 03-30-2024 Episodic Essential hypertension (20 sources) Benign hypertension; Translations: [Hypertensive disorder] Onset: 2 09-11-2018 Chronic Fluid and electrolyte disorders (20 sources) Hyponatremia; Translations: [Hypo-osmolality and hyponatremia] Onset: 3 11-12-2022 Episodic Gastroduodenal ulcer (except hemorrhage) (20 sources) [...] mitral (valve) prolapse] Onset: 4 06-16-2015 Chronic Immunizations and screening for infectious disease (6 sources) Other specified abnormal immunological findings in serum; Translations: [Rheumatoid factor positive] Onset: 4 05-18-2024 Episodic Joint disorders and dislocations; trauma-related (1 source) Unspecified internal derangement of left knee; Translations: [Unspecified internal derangement of left knee] Onset: 4 Chronic Mood disorders (20 sources) Bipolar disorder; Translations: [Depressive disorder] Onset: 1 06-16-2015 Chronic Mycoses (2 sources) Candidiasis of mouth; Translations: [Candidal stomatitis] Onset: 4 08-16-2023 Episodic Osteoarthritis (20 sources) Degenerative joint disease involving multiple joints; Translations: [Osteoarthritis] Onset: 4 09-11-2018 Chronic Osteoporosis (20 sources) Osteoporosis; Translations: [Age-related osteoporosis without current pathological fracture] Onset: 3 11-16-2022 Chronic Other acquired deformities (20 sources) Contracture of joint of right ankle; Translations: [Contracture, right ankle] Onset: 3 06-06-2023 Chronic Other aftercare (1 source) Other long term care pharmacist (current) drug therapy; Translations: [OTH WEB MERCHANT CURRENT DRUG THERAPY] Onset: 3 Episodic Other aftercare (4 sources) Encounter for change or removal of surgical wound dressing; Translations: [ENC CHG/REMOVAL SURG WOUND DRSG] Onset: 3 Episodic Other and ill-defined heart disease (13 sources) Diastolic dysfunction; Translations: [Heart disease, unspecified] Onset: 4 03-30-2024 Chronic Other and ill-defined heart disease (3 sources) Heart disease, unspecified Chronic Other bone disease and musculoskeletal deformities (20 sources) Osteochondritis dissecans of right ankle; Translations: [...] right foot and ankle] 09-26-2023 Episodic Other connective tissue disease (6 sources) Enthesopathy of elbow region; Translations: [Other enthesopathies, not elsewhere classified] Onset: 4 04-30-2024 Episodic Other diseases of bladder and urethra (2 sources) Detrusor overactivity; Translations: [Overactive bladder] Onset: 4 Chronic Other diseases of bladder and urethra (19 sources) Overactive bladder; Translations: [Overactive bladder] Onset: [...] [Other fecal abnormalities] Onset: 3 Episodic Other hereditary and degenerative nervous system conditions (20 sources) Restless legs; Translations: [Restless legs syndrome] [...] Onset: 3 Chronic Other nervous system disorders (3 sources) Other chronic pain; Translations: [OTHER CHRONIC PAIN] Onset: 0 Chronic Other nervous system disorders (20 sources) Difficulty walking; Translations: [Difficulty in walking, not elsewhere classified] Onset: 2 05-21-2022 Chronic Other nervous system disorders (20 sources) Neuropathy; Translations: [Polyneuropathy, unspecified] Onset: 2 05-21-2022 Chronic Other nervous system disorders (20 sources) Downey neuroma of bilateral feet; Translations: [Lesion of plantar nerve, bilateral lower limbs] Onset: 3 11-12-2022 Chronic Other nervous system disorders (20 sources) Parkinsonism due to drug; Translations: [Other drug induced secondary parkinsonism] Onset: 3 06-06-2023 Chronic Other nervous system disorders (20 sources) Bilateral entrapment of ulnar nerves at elbow; Translations: [Lesion of ulnar nerve, bilateral upper limbs] Onset: 3 06-20-2023 Chronic Other nervous system disorders (4 sources) Lesion of ulnar nerve; Translations: [Lesion of ulnar nerve, bilateral upper limbs] Onset: 3 07-08-2023 Chronic Other nervous system disorders (6 sources) Lesion of left ulnar nerve; Translations: [Lesion of ulnar nerve, left upper limb] Onset: 4 04-30-2024 Chronic Other nervous system disorders (6 sources) Carpal tunnel syndrome; Translations: [Carpal tunnel syndrome, unspecified upper limb] Onset: 4 04-30-2024 Chronic Other nervous system disorders (2 sources) Lesion of ulnar nerve, bilateral upper limbs; Translations: [Lesion of ulnar nerve] Onset: 3 07-08-2023 Chronic Other nervous system disorders (1 source) Lesion of ulnar nerve, left upper limb; Translations: [Lesion of ulnar nerve, left upper limb] Onset: 4 Chronic Other nervous system disorders (1 source) Lesion of ulnar nerve, right upper limb; Translations: [Lesion of ulnar nerve, right upper limb] Onset: 4 Chronic Other non-traumatic joint disorders (3 sources) Pain in unspecified joint; Translations: [Pain in unspecified joint] Onset: 4 Episodic Other non-traumatic joint disorders (5 sources) Pain in left knee; Translations: [Pain in joint, lower leg] Onset: 4 05-20-2024 Episodic Other non-traumatic joint disorders (1 source) Pain in elbow; Translations: [Pain in right elbow] 04-19-2021 Episodic Other nutritional; endocrine; and metabolic disorders (20 sources) Body mass index 30+ - obesity; Translations: [Obesity, unspecified] Onset: 2 04-09-2022 Chronic Other screening for suspected conditions (not mental disorders or infectious disease) (1 source) Encounter for screening for malignant neoplasm of respiratory organs; Translations: [Encounter for screening for malignant neoplasm of respiratory organs] Onset: 4 Episodic Other skin disorders (1 source) Asteatosis cutis; Translations: [Xerosis cutis] 05-28-2024 Episodic Other upper respiratory disease (20 sources) Allergic rhinitis; Translations: [Allergic rhinitis, unspecified] [...] UTERUS] Onset: 3 Episodic Residual codes; unclassified (7 sources) History of nasal sinus surgery; Translations: [Other specified postprocedural states] Onset: 4 03-30-2024 Episodic Residual codes; unclassified (1 source) Past history of procedure; Translations: [Other specified postprocedural states] 03-30-2024 Episodic Residual codes; unclassified (1 source) Tobacco user; Translations: [Tobacco use] 03-30-2024 Episodic Residual codes; unclassified (1 source) Pain; Translations: [Pain, unspecified] 04-19-2021 Episodic Spondylosis; intervertebral disc disorders; other back [...] (1 source) Pain medication/ discharged from [facility]. Onset: 4 Unclassified (1 source) Pre-op Exam [...] joint, unspecified side] Onset: 3 04-28-2018 Episodic Fracture of upper limb (2 sources) [...] 09-04-2021 Episodic Headache; including migraine (20 sources) Headache; Translations: [Headache] Onset: 3 04-12-2020 Episodic Hemorrhoids (20 sources) Hemorrhoids; Translations: [Unspecified hemorrhoids] Onset: 3 01-29-2023 Episodic Joint disorders and dislocations; trauma-related (1 source) Other tear of medial meniscus, current injury, right knee, subsequent encounter; Translations: [OTH TEAR MED MENSC CURR RT KNEE SUB] Onset: 2 Episodic Lymphadenitis (2 sources) Generalized enlarged lymph nodes; Translations: [Generalized enlarged lymph nodes] Onset: 4 Episodic Mood disorders (15 sources) Mood disorders Onset: 3 Resolved: 4 06-20-2023 Nausea and vomiting (20 sources) Vomiting; Translations: [Nausea and vomiting] Onset: 3 11-07-2021 Episodic Nonmalignant breast conditions (4 sources) Unspecified lump in the left breast, lower outer quadrant; Translations: [UNS LUMP IN LT BREAST LW OUTR QUAD] Onset: 3 Episodic Other acquired deformities (20 sources) Deformity of metatarsal; Translations: [Unspecified acquired deformity of unspecified lower leg] Onset: 3 06-06-2023 Episodic Other aftercare (20 sources) Patient encounter status; Translations: [Encounter for [...] Episodic Other bone disease and musculoskeletal deformities (20 sources) Osteopenia; Translations: [Other specified disorders of bone density and structure, unspecified thigh] Onset: 3 06-06-2023 Episodic Other connective tissue disease (20 sources) Fibromyositis; Translations: [Fibromyalgia] Onset: 4 02-14-2015 Episodic Other connective tissue disease (20 sources) Fibromyalgia; Translations: [Fibromyalgia] Onset: 0 04-12-2020 Episodic Other connective tissue disease (3 sources) Fibromyalgia; Translations: [FIBROMYALGIA] Onset: 2 Episodic Other connective tissue disease (4 sources) Impingement syndrome of right shoulder; Translations: [IMPINGEMENT SYNDROME RIGHT SHOULDER] Onset: 2 Episodic Other connective tissue disease (20 sources) H/O: musculoskeletal disease; Translations: [Personal history of other diseases of the musculoskeletal system and connective tissue] Onset: 5 04-12-2020 Episodic Other connective tissue disease (20 sources) Pain in bilateral legs; Translations: [Pain in right leg] Onset: 2 04-12-2020 Episodic Other connective tissue disease (20 sources) Pain in limb; Translations: [Pain in unspecified limb] Onset: 1 04-12-2020 Episodic Other connective tissue disease (20 sources) Bicipital tenosynovitis; Translations: [Bicipital tendinitis, unspecified shoulder] Onset: 4 05-21-2022 Episodic Other connective tissue disease (20 sources) Disorder of bursa of shoulder region; Translations: [Bursopathy, unspecified] Onset: 4 05-21-2022 Episodic Other connective tissue disease (20 sources) Bilateral plantar fasciitis; Translations: [Plantar fascial fibromatosis] Onset: 3 11-12-2022 Episodic Other connective tissue disease (20 sources) Spasm of cervical paraspinous muscle; Translations: [Other muscle spasm] Onset: 3 06-06-2023 Episodic Other connective tissue disease (15 sources) Myofascial pain syndrome; Translations: [Myalgia, other site] Onset: 4 07-01-2023 Episodic Other diseases of bladder and urethra (20 sources) Urethral stricture; Translations: [Unspecified urethral stricture, male, unspecified site] Onset: 2 04-21-2021 Episodic Other diseases of veins and lymphatics (20 sources) Peripheral venous insufficiency; Translations: [Venous insufficiency [...] UNSPECIFIED] Onset: 2 Episodic Other gastrointestinal disorders (20 sources) History of gastroesophageal reflux disease; Translations: [Personal history of other diseases of the digestive system] Onset: 5 04-12-2020 Episodic Other gastrointestinal disorders (20 sources) Incontinence of feces; Translations: [Full incontinence of feces] Onset: 4 Episodic Other injuries and conditions due to [...] external causes (20 sources) Foreign body in stomach, initial encounter; Translations: [Foreign body in stomach] Onset: 2 05-21-2022 Episodic Other lower respiratory disease (20 sources) History of chronic obstructive airway disease; Translations: [Personal history of other diseases of the respiratory system] Onset: 5 04-12-2020 Episodic Other nervous system disorders (1 source) Other acute postprocedural pain; Translations: [OTHER ACUTE POSTPROCEDURAL PAIN] Onset: 2 Episodic Other nervous system disorders (20 sources) Abnormal gait; Translations: [Unspecified abnormalities of gait and mobility] Onset: 3 07-01-2023 Episodic Other non-traumatic joint disorders (5 sources) Pain in right knee; Translations: [PAIN IN RIGHT KNEE] Onset: 2 Episodic Other non-traumatic joint disorders (1 source) Stiffness of right knee, not elsewhere classified; Translations: [STIFFNESS RIGHT KNEE NEC] Onset: 2 Episodic Other non-traumatic joint disorders (20 sources) Pain in left shoulder; Translations: [Pain in joint, shoulder region] Onset: 4 04-12-2020 Episodic Other non-traumatic joint disorders (1 source) Knee pain Onset: 4 Episodic Other non-traumatic joint disorders (1 source) Pain in left elbow; Translations: [Pain in left elbow] Onset: 4 Episodic Other non-traumatic joint disorders (1 source) Pain in right elbow; Translations: [Pain in right elbow] Onset: 4 Episodic Other nutritional; endocrine; and metabolic disorders (20 sources) Overweight; Translations: [Overweight] Onset: 3 01-24-2023 Episodic Residual codes; unclassified (20 sources) Family [...] region] Onset: 1 Episodic Sprains and strains (20 sources) Sprain of unspecified ligament of left ankle, initial encounter; Translations: [Sprain of unspecified site of left knee, initial encounter] Onset: 2 04-04-2023 Episodic Substance-related disorders (20 sources) Continuous opioid dependence; Translations: [Opioid use, unspecified, uncomplicated] Onset: 5 Resolved: 3 10-22-2022 Episodic Superficial injury; contusion (20 sources) Contusion of sacral region; Translations: [Contusion of lower back and pelvis, initial encounter] Onset: 3 04-04-2023 Episodic Unclassified (20 sources) Bipolar (qualifier value) 09-11-2018 Unclassified (6 sources) Exposure to 2019 novel coronavirus; Translations: [Contact with and (suspected) exposure to COVID19] Unclassified (1 source) LOW BACK PAIN, UNSPECIFIED; Translations: [LOW BACK PAIN, UNSPECIFIED] Onset: 2 Unclassified (15 sources) Onset: 3 07-10-2023 Results Test Name Value Interpretation Reference Range Facility COMPLETE BLOOD COUNTon 05-04 Erythrocyte distribution width (RBC) [Ratio] 14.1 % Normal 11.5-15.0 [facility] Comment on above: Performed By: #### 1 5205-8, CBC, 1987-12, 3016-3, 93244-6, 99794-6, 05995-0 #### [facility] ([id number]) [address], [address] [place] [address] Hematocrit (Bld) [Volume fraction] 42.9 % Normal 35-47 [facility] Comment on above: Performed By: #### 1 5205-8, CBC, 1987-12, 3016-3, 46839-2, 15114-8, 40422-0 #### [facility] ([id number]) [address], [address] [place] [address] Hemoglobin (Bld) [Mass/Vol] 14.8 g/dL Normal 11.7-15.5 [facility] Comment on above: Performed By: #### 1 5205-8, CBC, 1987-12, 301-3, 75496-0, 70605-7, 18671-7 #### [facility] ([id number]) [address], [address] [place] [address] MCH (RBC) [Entitic mass] 34.1 pg High 27-34 [facility] Comment on above: Performed By: #### 1 5205-8, CBC, 1987-12, 3015-3, 04754-3, 40235-5, 12827-9 #### [facility] ([id number]) [address], [address] [place] [address] MCHC (RBC) [Mass/Vol] 34.6 g/dL Normal 32-36 [facility] Comment on above: Performed By: #### 1 520-8, CBC, 1987-12, 3015-10, 98539-9, 68638-6, 19209-1 #### [facility] ([id number]) [address], [address] [place] [address] MCV (RBC) [Entitic vol] 99 fL Normal 80-100 [facility] Comment on above: Performed By: #### 1 5205-8, CBC, 1987-12, 3015-10, 01989-9, 76480-7, 02123-0 #### [facility] ([id number]) [address], [address] [place] [address] Platelet mean volume (Bld) [Entitic vol] 9.1 fL Normal 7-12 [facility] Comment on above: Performed By: #### 1 5205-8, CBC, 1987-12, 3015-3, 49020-4, 98606-6, 21450-4 #### [facility] ([id number]) [address], [address] [place] [address] Platelets (Bld) [#/Vol] 201 10*3/uL Normal 150-450 [facility] Comment on above: Performed By: #### 1 5205-8, CBC, 1987-12, 3016-3, 45073-5, 02743-7, 35457-7 #### [facility] ([id number]) [address], [address] [place] [address] RBC COUNT 4.36 X10E12/L Normal 3.80-5.20 [facility] Comment on above: Performed By: #### 1 5205-8, CBC, 1987-12, 3016-3, 07131-7, 99096-4, 54493-0 #### [facility] ([id number]) [address], [address] [place] [address] WBC (Bld) [#/Vol] 13.4 10*3/uL High 4.0-11.0 [facility] Comment on above: Performed By: #### 1 5205-8, CBC, 1987-12, 3016-3, 06075-1, 85606-2, 88382-1 #### [facility] ([id number]) [address], [address] [place] [address] CRP [Mass/Vol]on 05-04-2024 C REACTIVE PROTEIN 0.3 mg/dL Normal 0.000-0.7 4 4 [facility] Comment on above: Performed By: #### C RT #### [facility] ([id number]) [address], [address] [place] [address] ESR Photometric method (Bld) [Velocity]on 05-04-2024 ESR, ERYTHROCYTE SEDIMENTATION RATE 6 mm/h Normal 0-30 [facility] Comment on above: Performed By: #### C RT #### [facility] ([id number]) [address], [address] [place] [address] Nuclear Ab IA Ql (S)on 09-16 -2024 JAIME Screen w/reflex Negative Normal NEG [facility] Comment on above: Result Comment: Testing performed using multiplex flow immunoassay. Eleven different antigens associated with systemic autoimmune diseases (dsDNA,Sm,Sm/METAL MODEL BUILDER,METAL MODEL BUILDER,Chromatin, SSA,SSB,Yolanda-1,Scl70,Ribo P,Centromere B) are included in this screening test. Performed By: #### C RT #### [facility] ([id number]) [address], [address] [place] [address] Rheumatoid factor Nephelomet ry Qn (S)on 05-04-2024 RHEUMATOID FACTOR 22 IU/mL High <20 [facility] Comment on above: Performed By: #### 1 5205-8, CBC, 1988-5, 3016-3, 91982-0, 26729-1, 57153-8 #### [facility] ([id number]) [address], [address] [place] [address] TSH Qnon 05-04-2024 TSH 1.48 uIU/mL Normal 0.49-4.67 [facility] Comment on above: Performed By: #### C RT #### [facility] ([id number]) [address], [address] [place] [address] CT lung screeningon 03-31-20 CT lung screening [facility] [place] [address] CT Scan Report Signed Patient: Keturah Herrera MR#: [id number] : 1970 Acct:[id number] Age/Sex: 53 / F ADM Date: 03/31/24 Loc: [facility] Room: Type: [facility] Attending Dr: CARRILLO Boyd APRN Copies to: Valarie Conley APRN, ACNP-BC Ordering Provider: Valarie Conley APRN, ACNP-BC Date of Service: 03/31/24 CT/CT [...] Solo Alvarez M.D.03/31/2024 3:12 PM Dictation Location: [place] [address] Transcribed By: [facility] 03/31/24 1512 Dictated By: Solo Alvarez DO 03/31/24 1509 Signed By: 03/31/24 1512 [facility] MR KNEE LT WO CONTon [...] Silvestre MD on 03/31/2024 10:49 AM Normal [facility] BASIC METABOLIC PANLon 02-25 Anion gap [Moles/Vol] 10 mmol/L Normal 5-15 [facility] Comment on above: Performed By: #### C BCA, BMP #### [facility] ([id number]) [address], [address] [place] [address] Calcium [Mass/Vol] 10.1 mg/dL Normal 8.5-10.5 [facility] Comment on above: Performed By: #### C BCA, BMP #### [facility] ([id number]) [address] [place] [address] Chloride [Moles/Vol] 102 mmol/L Normal 98-109 [facility] Comment on above: Performed By: #### C FELIX, BMP #### [facility] ([id number]) [address], [address] [place] [address] CO2 [Moles/Vol] 28 mmol/L Normal 22-32 [facility] Comment on above: Performed By: #### C FELIX, BMP #### [facility] ([id number]) [address], [address] [place] [address] Creatinine [Mass/Vol] 0.83 mg/dL Normal 0.40-1.00 [facility] Comment on above: Result Comment: METH OD TRACEABLE TO IDMS STANDARD Performed By: #### C FELIX, BMP #### [facility] ([id number]) [address], [address] [place] [address] GFR/1.73 sq M.predicted among non-blacks MDRD (S/P/Bld) [Vol rate/Area] 84 mL/min/{1.73_m2} Normal >59 [facility] Comment on above: Result Comment: Reported eGFR is based on the CKD-EPI 2020 equation that does not use a race coefficient. Performed By: #### C FELIX, BMP #### [facility] ([id number]) [address], [address] [place] [address] Glucose [Mass/Vol] 82 mg/dL Normal 65-99 [facility] Comment on above: Performed By: #### C FELIX, BMP #### [facility] ([id number]) [address] [place] [address] Potassium [Moles/Vol] 4.1 mmol/L Normal 3.5-5.0 [facility] Comment on above: Performed By: #### C FELIX, BMP #### [facility] ([id number]) [address], [address] [place] [address] Sodium [Moles/Vol] 140 mmol/L Normal 134-146 [facility] Comment on above: Performed By: #### C BCA, BMP #### [facility] ([id number]) [address] [place] [address] Urea nitrogen [Mass/Vol] 7 mg/dL Normal 5-23 [facility] Comment on above: Performed By: #### C BCA, BMP #### [facility] ([id number]) [address] [address] CBC AND AUTO DIFFon 02-25- 24 ABSOLUTE BASOPHIL 0.2 X10E9/L Normal 0.0-0.2 [facility] Comment on above: Performed By: #### C BCA, BMP #### [facility] ([id number]) [address] [address] Basophils/100 WBC (Bld) 1.0 % Normal [facility] Comment on above: Performed By: #### C BCA, BMP #### [facility] ([id number]) [address] [place] [address] Erythrocyte distribution width (RBC) [Ratio] 15.5 % High 11.5-15.0 [facility] Comment on above: Performed By: #### C BCA, BMP #### [facility] ([id number]) [address] [address] [place] [address] Hematocrit (Bld) [Volume fraction] 42.7 % Normal 35-47 [facility] Comment on above: Performed By: #### C BCA, BMP #### [facility] ([id number]) [address] [address] Hemoglobin (Bld) [Mass/Vol] 14.5 g/dL Normal 11.7-15.5 [facility] Comment on above: Performed By: #### C BCA, BMP #### [facility] ([id number]) [address], [address] [place] [address] Lymphocytes (Bld) [#/Vol] 3.3 10*3/uL Normal 1.0-3.5 [facility] Comment on above: Performed By: #### Veronica WASHINGTON, BMP #### [facility] ([id number]) [address] [place] [address] Lymphocytes/100 WBC (Bld) 19.0 % Normal [facility] Comment on above: Performed By: #### C FELIX, BMP #### [facility] ([id number]) [address] [place] [address] MCH (RBC) [Entitic mass] 33.0 pg Normal 27-34 [facility] Comment on above: Performed By: #### Veronica WASHINGTON, BMP #### [facility] ([id number]) [address], [address] [place] [address] MCHC (RBC) [Mass/Vol] 34.0 g/dL Normal 32-36 [facility] Comment on above: Performed By: #### Veronica WASHINGTON, BMP #### [facility] ([id number]) [address] [place] [address] MCV (RBC) [Entitic vol] 97 fL Normal 80-100 [facility] Comment on above: Performed By: #### Veronica WASHINGTON, BMP #### [facility] ([id number]) [address], [address] [place] [address] Monocytes (Bld) [#/Vol] 0.7 10*3/uL Normal 0-0.9 [facility] Comment on above: Performed By: #### Veronica WASHINGTON, BMP #### [facility] ([id number]) [address], [address] [place] [address] Monocytes/100 WBC (Bld) 4.0 % Normal [facility] Comment on above: Performed By: #### Veronica WASHINGTON, BMP #### [facility] ([id number]) [address], [address] [place] [address] Neutrophils (Bld) [#/Vol] 13.4 10*3/uL High 1.5-6.6 [facility] Comment on above: Performed By: #### C FELIX, BMP #### [facility] ([id number]) [address], [address] [place] [address] Platelet mean volume (Bld) [Entitic vol] 9.1 fL Normal 7-12 [facility] Comment on above: Performed By: #### C FELIX, BMP #### [facility] ([id number]) [address], [address] [place] [address] Platelets (Bld) [#/Vol] 198 10*3/uL Normal 150-450 [facility] Comment on above: Performed By: #### Veronica WASHINGTON, BMP #### [facility] ([id number]) [address], [address] [place] [address] RBC COUNT 4.40 X10E12/L Normal 3.80-5.20 [facility] Comment on above: Performed By: #### Veronica WASHINGTON, BMP #### [facility] ([id number]) [address], [address] [place] [address] RBC morphology finding Nom (Bld) NORMAL Normal [facility] Comment on above: Performed By: #### Veronica WASHINGTON, BMP #### [facility] ([id number]) [address], [address] [place] [address] SEG NEUTROPHIL 76.0 % Normal [facility] Comment on above: Performed By: #### Veronica WASHINGTON, BMP #### [facility] ([id number]) [address], [address] [place] [address] WBC (Bld) [#/Vol] 17.6 10*3/uL High 4.0-11.0 [facility] Comment on above: Performed By: #### C BCA, BMP #### [facility] ([id number]) [address] [facility] [address], [address] [place] [address] Coding Summary.on 02-11-2024 Coding Summary. CSZSQrsn60IHk0kNk+PG hlYWQ+PE 4EFREvB97jkRAilJ5mQ6PYTUlROl zkBHHMPMbSLzLdmtNtJJ1lfYDsKD Ju IC8+UY2bFTDdCaibrXWhp0F6rNF8 G34gcd9vCTocyWV3WXOlAxRulofh v2fogZe0PZzkOwfsYhMf SVIbbT69SRQ9qK70Wv20jMPuoMSf t1hxeXf2AhSyVIFoAIU5cHxbXGzs v7DjPTDdE76cuZLyv1Y9 GVNrrYznxGHiArCizOI3pP1oMVyp itaaq7prwmbdKtj0ss94sDRss8D9 yGT5Q3ZnkxJ9EJFavWRq EypivJXMiG6axkxyb8pgoesgRxKm PNUbQHi7OFv2TOTjcIjoWqBvMN24 VXR2FSAacrIsF7PySQEq rRsbCeL0w1E9Ww9GG3FLAvmiY6LS TUFSWTwvdGQ+HX16ls05L5FsWnop Plm9HTNzUMV0mHU0tC4f JDVxFTxpn7U4iHF0E8BgqkKcxf3s i9yrVTTeSOdyB35haYLyu0I5FDTd zFV5ZQGylZdbRkZnbA08 Oyc+MKNdmJhgm1QeVmlhv9ybn4nz jZk5XacqAMZqkjYiqFjsWGZ8h9Xi Bx5lMZGzuUR5dJA0hS1i VkGnOtP5IGkcY970FgXbkMJnVbhw P77dC2EerRB+RSUlSlo4QRAvsAfo TD7gS9JeFPFalukjuEHl uGtyTL6eXALetlvmDXWltS1uGXNw A8w1LiZaYuY5PWrgJ7RiBQTlfays Uc98mD3yMbQkVcU2PDgg B3HykwG3FFDfxSQkFQveDAG1Z51z d2S6MRWiBPLjCLV0wQY7uK1dyLcg bjogbGVmdDsgdmVydGlj MKvuRDocB443NYKtxVjuEzTlBZtu ZyBEYXRlOiAgMDYvMjUvMjAyNDwv dGQ+SIGwPRB7lWrlOAKo dYPmYMrfWj1atPzhaDfnKU6iWCUt zejlNVClxC7yWUKqiBIddFlqDK5k XNLxybxjv627AkAoPNB8 KPFxvFZtC0RdxO8rXkLbALIbVLTk C9HmsJGuCXsnP736PLwfSiA4NYYr gpKlG4RoSUTvpAqqQyM3 n9V7Vl0Mi8IxuhmmT7UadFObIbWv YvvcEFp6S4VeHwdatJD+TE36DUZb HH81ISi6BJA9nTfuCDjq LKQyB1FrlC9uWdEiOCPwSPUzXhc+ PHRhYmxlIHdpZHRoPScxMDAlJyBz bRljZK5hAj1dUDAxUPSj eQwwnRGyFzDjf7lwXTUaKThlDX7u dAywA1JvfYN7EEAfv1r5Rc16V79b L4HdjUQ+LKKdwUK7zAI6 cE1bAnFfNeA9VLwoA310RtCpmWCi Bispb9bda8uxoWe1EdU8OJPnobTg xPgyATI1i0NuDx68F06m JXwjSRKoLQKwWODfBYTckZcpar1k bV2sHr1+UYHlqSC1zIM8mJ1bPfTj TnB5CUziD360TzVemLTj Sltjb6wzo1iwhIh6AfXoRMPqunUm vXakVTL3b2TwDo74P9HvaMczi0Vi Jky6ku61eAAnc7S3fXK0 Y1OfRGSrehzzePNhuOkpQX9vCQSs kheuRYKucF4wHYUlU2t2MdMfCuL4 JBelK4NvcoO5BERhdTDr ZBVgpYWQqP3hcaatr1zdsbghOfPr YWEsTOh2XCb5ZRCksKxkLdWcGSK0 WuA9DFC7vMLwmC2lbRei rwjfwQ3hEyy+PXY8kUBqrSLYKQ0u OjwvdGQ+VMDbUGS2bTavNIlhWZIa yS8hEMZgQ4q3VkRsSwV4 CYinH1JgcyR9SZWjxUFnLOXbsSEL oI2zquntx8mnaeabXzPiACKxDIi3 VXv1DEXklZqgRsDaMSB3 WiL9THO1kNJzvY9uhWvgcmxwzR5f Oyc+VnmydExgNCG6WGg5B4LyRnn4 WNLirNkgOJ3zsTFmEEwp Jk1csLkeqBibQL7lBRKfjefyg944 WyIlk3jxWGAowPPsRJenEBK1V73a f6L5QBXbIDTrVNX0mIQ7 wO1jaOjakssnxJQumLarwfCheOej GYgiENhaG213SHUmgFrhBuDfEIi7 Y9SvPwl1CHAosMgpQC0i iGSkXDwpWs3zqChirKcxPM3iGZKh hjxuy380NvKvg2mpILAekMSdLXcn HMW5Q83ji8E4ZSHkEWMa PNT0wLQ5jX9nzBsrovoyiYLchUcn opXvmIvtURcuNTjbG848KBFqqGbt BvTznUb6H5IjJyo6DOUu mErsJJ4eiSVyPMgfYq5wdGrffUsk PS5gSMWtzfwhc157BcFqp7caRNQo jBRwINjfPKL4E15mx2C8 JXNiJCMkTOD4nGW5qU6poPwqoryw gILfoCbgeyNuaDyePFhhLXgtE167 IHRvcDsnPlBhdGllbnQg BHooJHh6U6KzTppjmSM+QX80YUUb BA07wCPixPMdx7hsdNg1WuOoHDLh BNY2cWwkYVshx1XnOQNq J17szIBey1S9EVWrvCmvgUAkTqJm fKH2wP3rPXkjjqukk1nvbplfDqzq t3nydu10qI08L58iBAsz HGQrSOXqGKZhPSNukPzfqo9ozO8o Ii8+UWHxiVD2cLJ3cL4lYVFiPkN0 ZMncX700RrFpbAUzFvac i8ogx6xorTj5NzJ7MIYplcCzgEft EOX4v7LrKz11Z38tXPwmACAhLPXs CCMeCJJyaPvkey0jsD2y Ii8+MPLrxEY9uGE7aS1mZtAqVqD5 MInyY260LeBweKBkJijzQ24qB7Kf dXA+CNZpIec9XXXukJer YT0spMIyAWxoPy7lOEJ2WzYaVaSe FAmyK9NeVAGuzqljodbfyNZ8AAIf JMBeuG59Ng9htQbrFJXd nIJSyX6ntwtzd6zavkxjKfDyFHVs HJt1BHs2HDPfgTodMyWcVLU5BsM2 UYG0yGXqhM7teNsvmqki hQ0gI7EbIAZsadipMt28hQ1vKpZq HyJ7XDrrHec+ZUXEPREAXKIKGB1E UIW3C7IlPhs7WGMrdYvo CT1fiZFnYOvdKi1nmPnutHepSI1n WBAuajcaHOHxbO1tOZEdfCIegIjo ES9rIOQbhlxcl834SsDc LLG5TIEpnFDgA5SvlZ0fKkIdWZRl KGClB7AfcALgQNvvA532VHxlUuN2 SLRiwsFnB9AnQZExfYxb UeV2h0S2Os9xBw5nAQ3dRSqnPP71 KQ96uIGee2X4xIW0O2LuWMBzyjki ceebbSV6EQAuKBFnaP70 qJWaHGjyEu6ga4W5p035FOKtFWBt iT99Cb6quXpoCIAbaIHQgN4emmbt m8vztlcdTnCnHNJiKUn7 QTq3ODZozQxfTpPxKLC8VlA5XWU8 gUMcuZ2prOedxphezX5vXjp+NTMg MGDmwoZ4K1BaFmh9QUNx gIjeEX4zgACbQDzkSh4utCcbhEbu NR8pRFSkpsmiIQUwmQ6qCOGzaEEv xWwdAY9sLWVjmbbrq660 EmJtNGC3POAqwHFdH4OxlM2aFyMk JPVjQLKcN5FdxHOnMDwvV028KAhm XxB1FXPumxVyY6ViORWf oShpDpR5m6W7Rb4VHD6ulFM4H1Ju Vhf9CVBhnIydOL3uaBCbKYsxSr9f kJoncGrwFW9xAGShongk RYJrjU9vNBFfvCJctNocWP4uSIGy mivik143MeTjUVD6MEOuzTMyR2Mx sZ9mYyPnUWYgCRTcJ1Ob jEWePChrH141XHkhOpN3HBQrqnAn X6EhVDOxxXpdCnO9d9O0Ar5RrPVn UHAiGI31QY28PN73V3Aq PjwvdGFibGU+PHRhYmxlIHdpZHRo UVwoAVDiEbKjgJtnOT9hPp4fCDCw KBEtoLlcnZNbMcHja8yq KCZlFHniQY0khExeH6KquIM0JFKu g0g6Bg74X08wB9FegPL+PGNvbCB3 gKM6aW4tTzRjYjA5HDoo D584WrTqfULrXurzr2zju5knmWk4 NlPmYUZuroCwiJetZNO7g1HtGj18 E65hCDphQASbJCMiJAGq ZGUqeSowii8oiW8yUe5+PGNvbCB3 gTI7dK4cXfQcDmM8TCsjL337FoPo pSWyJhevN79fQ1NtxCC+ TZQdHes4JADvkPwfKI8zpBEdXCzy Ca3dOWS4CjJpElJgXQcrU8TpZDRk wtephwrleWR7GAPkRWTp tQ82Wu2vvXtdZe9xPLSqVKD9DPGr sABcH6FtsD0qApUxQXYpAIViP0Tg dNHjSRhbO580XHrpJeX9 SJPlcxPpU4XyCDXwbWkqTeZ7y7J2 Es7NfOhjrIHlUJ1xWpApBJx3G8Gs Usc1VIDgbHnwGG7ztIEf SFrcNz6ycRuirKxtRZ6eLWRvjwaa c934PkIzg6lyFJSjwLSaXXlxIAA0 E99ru7V7VCKoUXZtNHW2 dYS4nG2awXmwfnntxZFfvSfvwcRg uImmVLqtHNpzU881RLYcwZhcLiEW Joa3Q7DxItk0XBFojTpl SH3hoXIzHSsgXi5gwZtapObwIK7f ZPDkyutaz710NtLbp6pyQYWpnSDn DWpvCBV5J26cg5P7MKJx SGRjIBI0hLN9gK0opUraarkgiNYh tVhxfjJyjAdvZEwqVPujQ162QAYs hFutPw2XGoa5M3JaBjh3 CPDdfXixWV7dbVHjZYxqDa6dsIzx tDhfEA8rHYAdobucx265XjAes3fo FMSpnLZlPAylLST1I51b m9M9ZBStEICtUYZ8pHQ8qJ5ghPhb bjogbGVmdDsgdmVydGljYWwtYWxp U765KDQiwLkyBgLujVPh OjwvdGQ+QR66hc00G9OgQbhlLfk8 ZXCtROW6zTU1iV2kIQFxITeee3W7 wRW2K0NwqnKhvk9cd9dq TJHmETzoN62ve (more content not included)... Normal [facility] XR KNEE LT 3 VWSon 4 [...] Joseph MD on 01/31/2024 6:38 PM Normal [facility] Consent for Treatmenton 01-17 Consent for Treatment [id number]#1.00TIFF Normal [facility] Heart and Vascular Office/Cl inic [...] 4. Normal estimated pulmonary artery pressure. [1] [facility] with Dr. Beltran on 03/03/2020: CONCLUSIONS: [...] with voice recognition artificial intelligence software, specifically [employer], [email or web address] and or [employer]. Substitutions may have occurred due to the [...] stress Nausea (more content not included)... Normal [facility] Comment on above: Result Comment: Elec tronically Signed By: Nella NORRIS, En Jerome\.rosi\Date and Time Signed: 01/30/24 14:40 EDT Physician Orderon 01-30-2024 Physician Order [id number]#1.00TIFF Normal [facility] MR ELBOW LT WO CONTon 2023 [...] Muir MD on 01/27/2024 11:30 AM Normal [facility] CT ABDOMEN AND PELVIS W CONT on [...] Herman MD on 01/24/2024 6:29 AM Normal [facility] CREATININEon 01-20-2024 Creatinine [Mass/Vol] 0.94 mg/dL Normal 0.40-1.00 [facility] Comment on above: Result Comment: METH OD TRACEABLE TO IDMS STANDARD Performed By: #### C RT #### [facility] ([id number]) [address], [address] [place] [address] GFR/1.73 sq M.predicted among non-blacks MDRD (S/P/Bld) [Vol rate/Area] 73 mL/min/{1.73_m2} Normal >59 [facility] Comment on above: Result Comment: Reported eGFR is based on the CKD-EPI 2020 equation that does not use a race coefficient. Performed By: #### C RT #### [facility] ([id number]) [address], [address] [place] [address] Consent for Treatmenton 12-18 Consent for Treatment [id number]#1.00TIFF Normal [facility] Consultation Noteon 01-15-20 24 Consultation Note Patient: JESSIE HERRERA Age: 53 [...] # 120 tab(s), Refills(s) 6, Pharmacy: [facility], 162, cm, 03/30/20 10:05:00 EDT, Height/Length Dosing, 74.2, kg, 03/30/20 10:05:00 EDT, Weight Dosing carvedilol 25 mg Tab: 25 mg = 1 tab(s), Oral, BID, # 180 tab(s), Refills(s) 3, Pharmacy: [facility], 163, cm, 07/25/23 10:41:00 EST, Height/Length Dosing, 80.8, kg, 07/25/23 10:47:00 EST, Weight Dosing diltiazem CD 120 mg/24 hours Cap-ER: 120 mg = 1 cap(s), Oral, Daily, # 30 cap(s), Refills(s) 5, Pharmacy: [facility], 163, cm, 01/01/24 11:13:00 EDT, Height/Length [...] Refills(s) 0, Proph (more content not included)... [facility] Comment on above: Result Comment: Elec tronically Signed By: Artie NORRIS, Cady\.br\Date and Time Signed: 01/15/24 08:43 EDT Office/Clinic Note-Physician on 01-15-2024 Office/Clinic Note-Physician [id number]#1.00TIFF [facility] Patient Correspondenceon Patient Correspondence [id number]#1.00TIFF [facility] Patient Correspondence [id number]#1.00TIFF [facility] Patient History Officeon Patient History Office [id number]#1.00TIFF [facility] Interdisciplinary Note - Soc ial Workeron 01-06-2024 Interdisciplinary Note - Foreign Exchange Dealer Consult for positive depression screen received. SW made a tc to patient and left a message with contact information for patient to call back. SW will remain available. [facility] Consent for Treatmenton 12-17 Consent for Treatment [id number]#1.00TIFF [facility] [...] [facility]. [facility] [...] stool, # 120 tab(s), Refills(s) 6, Pharmacy: [facility], 162, cm, 03/30/20 10:05:00 EDT, Height/Length Dosing, 74.2, kg, 03/30/20 10:05:00 EDT, Weight Dosing carvedilol 25 mg Tab: 25 mg = 1 tab(s), Oral, BID, # 180 tab(s), Refills(s) 3, Pharmacy: [facility], 163, cm, 07/25/23 10:41:00 EST, Height/Length [...] Refills(s) 0 (more content not included)... Normal [facility] Comment on above: Result Comment: Elec tronically Signed By: Artie NORRIS, Cady\.br\Date and Time Signed: 01/01/24 11:24 EDT Lab Reportson 01-01-2024 Lab Reports [id number]#1.00TIFF [facility] Office/Clinic Note-Physician on 01-01-2024 Office/Clinic Note-Physician [id number]#1.00TIFF [facility] Orders Officeon 01-01-2024 Orders Office [id number]#1.00TIFF [facility] Patient Correspondenceon Patient Correspondence [id number]#1.00TIFF Normal [facility] Patient Correspondence [id number]#1.00TIFF Normal [facility] Patient History Officeon Patient History Office [id number]#1.00TIFF Normal [facility] RAD - CT Reporton 01-01-20[address] RAD - CT Report [id number]#1.00TIFF Normal [facility] Ambulatory Visit Summaryon 0 12-31-2023 Ambulatory [...] Cady Alva PA-C Where: [facility] Saturday 1:00 PM EDT With: POLLY MARIANO PA-C Where: [facility] Patient Education 12-31-19 24 Patient Education Urology Urinary Incontinence Urinary incontinence [...] stimulation). ? For women, using a medical appointment clerk to prevent urine leaks. This is a [...] urine. ? (more content not included)... Normal [facility] Urology Office/Clinic Noteon 12-31-2023 Urology Office/Clinic [...] volume 2,525mL. CT AP wo con 10/20/22 [facility] - A few tiny nonobstructing R renal calculi. No hydro. CT AP w IV con 12/01/23 [facility] [ordered at the ER for vomiting and back pain] - shows a few scattered subcentimeter 3-4 minor cystic structures of the bilateral renal cortices are too small to characterize and are similar to CT 05/30/2021. Neg for stones or hydro. Follow-up With When Contact Information YUDY NORRSI, POLLY Kaminski, URL [address] [place] [address] Additional Instructions: 1 year Patient Education Urinary [...] (01/17/2023), Víctor (more content not included)... Normal [facility] Comment on above: Result Comment: Elec tronically Signed By: POLLY MARIANO PA-C\.br\Date and Time Signed: 12/31/23 13:21 EDT\.br\Electronically Co-Signed By: Violet Bangura\.br\Date and Time Co-Signed: 12/31/23 13:14 EDT CHEMISTRYOrdered By: Jordan Ritchie on 12-11-2023 POC Device SN [id number] 1 Invalid Interpretation Code [facility] POC Subsection POC User ID [id number] 1 Invalid Interpretation Code [facility] POC Subsection POC Username FREDIS WEBSTER Invalid Interpretation Code [facility] POC Subsection Capillary Glucose POCOrdered By: Jordan NAVASUser on 12-11-2023 Glucose [Mass/Vol] 154 mg/dL High 55-99 [facility] P OC Subsection Comment on above: Performed By: #### [id number] ####[facility] [id number] [place] [address] Consent for Procedure/Surger yon 12-11-2023 Consent for Procedure/Surgery [id number]#1.00TIFF [facility] [place] Consent for Treatmenton 11-18 Consent for Treatment [id number]#1.00TIFF [facility] Discharge Instructionson Discharge Instructions [id number]#1.00TIFF Normal [facility] IntraOperative Documentson 0 12-11-2023 IntraOperative Documents [id number]#1.00TIFF Normal [facility] IntraOperative Documents [id number]#1.00TIFF Normal [facility] Main OR Intraoperative Recor don 12-11-2023 Main OR Intraoperative Record IntraOp Document Type FTPM Summary Primary Physician: Andrew Eid DO Finalized Date/Time: 12/11/23 09:27:33 Pt. Name: KETURAH HERRERA.O.B./Sex: 1970 Female Med Rec #: [id number] Physician: Andrew Eid DO Financial #: [id number] Pt. Type: P Room/Bed: / Admit/Disch: 12/11/23 08:00:11 - Institution: Case Times FTPM Entry 1 Patient Times In Room 12/11/23 09:21:00 Out Room 12/11/23 09:28:00 Procedure Times Start 12/11/23 09:24:00 Stop 12/11/23 09:27:00 Anesthesia Times Last Modified By: Teressa Dennison RN 12/11/23 09:27:22 Case Attendance FTPM Entry 1 Entry 2 Entry 3 Case Attendee Andrew Eid DO, RN, Teressa Jones RN, Katherine Queenie Role Performed Surgeon - Primary Certified Flex Endoscope Reprocessor - Primary Scrub - Primary Time In 12/11/23 09:21:00 12/11/23 09:21:00 12/11/23 09:21:00 Time Out 12/11/23 09:28:00 12/11/23 09:28:00 12/11/23 09:28:00 Procedure LUMBAR EPIDURAL STEROID LUMBAR EPIDURAL STEROID LUMBAR EPIDURAL STEROID INJECTION(.) INJECTION(.) INJECTION(.) Comments Last Modified By: Juma LAZO, Teressa Dennison RN, Teressa Dennison RN, Teressa Grewal 12/11/23 09:27:22 12/11/23 09:27:22 12/11/23 09:27:22 Entry 4 Case Attendee Gen Lazo Role Performed Publication Distributor Time In 12/11/23 09:21:00 Time Out 12/11/23 [...] X-ray Applicable) PreOp Antibiotic No Time Out Teresas Dennison RN, Given Participants Robert LAZO, Eli [...] and tissue Entry 1 Skin Integrity Intact, Rosita, Warm, and Skin Abnormality No Dry Outcomes [...] Juma Moreira (more content not included)... Normal [facility] Main OR Preoperative Recordo n 12-11-2023 Main OR Preoperative Record Holding Area Document Type FTPM Summary Primary Physician: Andrew Eid DO Finalized Date/Time: 12/11/23 08:39:56 Pt. Name: KETURAH HERRERA/Sex: 1970 Female Med Rec #: [id number] Physician: Andrew Eid DO Financial #: [id number] Pt. Type: P Room/Bed: / Admit/Disch: 12/11/23 [...] Signed By: Odette Quintana RN 12/11/23 08:39 [facility] [place] Patient Correspondenceon Patient Correspondence [id number]#1.00TIFF [facility] Orders Officeon 11-22-2023 Orders Office [id number]#1.00TIFF [facility] Insurance Correspondence Off iceon 11-21-2023 Insurance Correspondence Office [id number]#2.00TIFF [facility] Outside Records Officeon Outside Records Office [id number]#1.00TIFF [facility] [place] Consent for Treatmenton 10-18 Consent for Treatment [id number]#1.00TIFF [facility] Consultation Noteon 03-20-20 24 Consultation Note Patient: JESSIE HERRERA Age: 53 [...] options. She has undergone physical therapy at [facility] with out improvement. In fact, [...] MVP (mitral valve prolapse) / SNOMED CT 1020637290 / Confirmed Bipolar disorder / SNOMED CT 41394253 / Confirmed COPD (chronic obstructive pulmonary disease) / SNOMED CT 26518978 / Confirmed Vertigo / SNOMED CT 8910458634 / Confirmed Chronic pain / SNOMED CT 852457817 / Confirmed Osteoarthritis / SNOMED CT 0010107745 / Confirmed Hyperlipidemia / SNOMED CT 60972856 / Confirmed Chronic migraine / SNOMED CT 66853028 / Confirmed Sleep apnea / SNOMED CT 903772978 / Confirmed pt uses CPAP does not use cpap any longer Gastritis / SNOMED CT 1773892 / Confirmed Irritable bowel syndrome / SNOMED CT 47365630 / Confirmed Hypertension / SNOMED CT 1131688028 / Confirmed Dizziness / SNOMED CT 3977670165 / Confirmed Tarsal tunnel syndrome of left side / SNOMED CT 87384062 / Confirmed Diabetes / SNOMED CT 818175637 / Confirmed Personality disorder / SNOMED CT 04106150 / Confirmed TMJ arthralgia / SNOMED CT 754903354 / Confirmed Smoker / SNOMED CT [id number]-KHL3 J5074VL1 / Confirmed Added secondary to documentation in Social History. GERD (gastroesophageal reflux disease) / SNOMED CT 251049115 / Confirmed History of kidney stones / SNOMED CT 4417979036 / Confirmed Mixed incontinence urge and stress / SNOMED CT 48745185 / Confirmed Urinary frequency / SNOMED CT 048688130 / Confirmed Other urethral stricture, female / SNOMED CT 456763869 / Confirmed Incomplete emptying of bladder / SNOMED CT 315722801 / Confirmed Feeling of incomplete bladder emptying / SNOMED CT 381519166 / Confirmed Urge incontinence / SNOMED CT 846272260 / Confirmed Dysuria / SNOMED CT 00114307 / Confirmed Change in bowel habits / SNOMED CT 36370040 (more content not included)... [facility] Comment on above: Result Comment: Elec tronically Signed By: Cady Alva PA-C\.br\Date and Time Signed: 11/06/23 10:24 EDT\.br\Electronically Co-Signed By: Andrew Eid DO.br\Date and Time Co-Signed: 11/06/23 15:19 EDT HIPAA Forms Officeon 024 HIPAA Forms Office [id number]#1.00TIFF [facility] Legal Correspondence Officeo n 11-06-2023 Legal Correspondence Office [id number]#1.00TIFF [facility] Legal Correspondence Office [id number]#1.00TIFF [facility] Office/Clinic Note-Physician on 11-06-2023 Office/Clinic Note-Physician [id number]#1.00TIFF [facility] Patient Correspondenceon Patient Correspondence [id number]#1.00TIFF [facility] Patient Correspondence [id number]#1.00TIFF Normal [facility] Patient Correspondence [id number]#1.00TIFF Normal [facility] Patient Correspondence [id number]#1.00TIFF Normal [facility] Patient Correspondence [id number]#1.00TIFF Normal [facility] Patient History Officeon Patient History Office [id number]#1.00TIFF Normal [facility] Patient History Office [id number]#1.00TIFF Normal [facility] Physician Orderon 11-06-2023 Physician Order [id number]#1.00TIFF Normal [facility] Radiology Outside Office Glue Bone Crusher yon 11-06-2023 Radiology Outside Office Copy [id number]#1.00TIFF Normal [facility] Outside Records Officeon Outside Records Office [id number]#1.00TIFF Normal [facility] Referrals Officeon Referrals Office [id number]#1.00TIFF Normal [facility] Event Monitoron 10-01-2023 Event Monitor [id number]#1.00TIFF Normal [facility] Formson 10-01-2023 Forms [id number]#1.00TIFF Normal [facility] Screenson 09-18-2023 Screens [id number]#1.00TIFF Pamela Nash [facility] Ambulatory Visit Summaryon 0 09-17-2023 Ambulatory [...] POLLY MARIANO PA-C Where: [facility] Patient Educationon 09-17-19 Patient Education Urology Hematuria, Adult Hematuria is [...] these instructions at home: Medicines ? Take syus-tuz-vvptnju and prescription medicines only as told by [...] the blood stops without treatment. ? Take cjwr-xii-pgbtusj and prescription medicines only as told by your health care provider. ? Drink enough fluid to keep your urine pale yellow. This information is not intended to replace advice given to you by your health care provider. Make sure you discuss any questions you have with your health care provider. Document Revised: 04/05/2021 Document Reviewed: 04/05/2021 [employer] Patient Education ? 2022 [employer]. [facility] Retail - Clinical Noteon Retail - Clinical Note [id number]#1.00TIFF [facility] Retail - Clinical Note [id number]#1.00TIFF [facility] [...] to her (unsure if refill ran out?) [facility] 10/20/22 CC: flank pain and trouble [...] is 6.2. -Begin [facility]care. [facility] f/u 3 mos to ensure working well. -Supply order provided for pads/incontinence supplies Ordered: E&M of Est. Patient Moderate 30-39 Min 32792 Urnls Dip Stick Auto w/o Microscopy POC 01745 2. Fecal incontinence (R15.9: Full incontinence of feces) Hx of IBS. Continues having complications with diarrhea and fecal incontinence follows with PCP used to follow with Dr. Bela CAZARES but he retired Ordered: E&M of Est. Patient Moderate 30-39 Min 90958 3. OAB (overactive bladder) (N32.81: Overactive bladder) see #1 Ordered: E&M of Est. Patient Moderate 30-39 Min 99772 4. Gross hematuria (R31.0: Gross hematuria) S/p [...] E&M of Est. Patient Moderate 30-39 Min 05787 5. Kidney stones (N20.0: Calculus of kidney) S/p lithotripsy 06/06/15. 24hr urine 10/25/19 done for unrelated reason (ordered by external provider): Total volume 2,525mL. CT AP wo con 10/20/22 [facility] - A few tiny nonobstructing R renal [...] E&M of Est. Patient Moderate 30-39 Min 46664 Orders: solifenacin, 10 mg = 1 tab(s), Oral, Daily, # 90 tab(s), Refills(s) 3, Pharmacy: [facility], 163, cm, 09/17/23 8:25:00 EST, Height/Length Dosing, 81, kg, 09/17/23 8:25:00 EST, Weight Dosing Follow-up With When Contact Information POLLY MARIANO PA-C, URL [address] [place] [address] [phone] Additional Instructions: 3 mos (restart med) Patient Education Hematuria, Adult Documentation record (more content not included)... Normal [facility] Comment on above: Result Comment: [...] Dodson MD on 08/05/2023 5:33 PM Normal [facility] Consent for Treatmenton 12-0 Consent for Treatment [id number]#1.00TIFF Normal [facility] Heart and Vascular Office/Cl inic [...] palpitations and chest pain and went to [place] for evaluation. He then saw Cady on [...] disease) Hemorrhoids (more content not included)... Normal [facility] Comment on above: Result Comment: Elec tronically Signed By: WILL WALSH, Elliott Grewal\.br\Date and Time Signed: 07/25/23 10:57 EST Physician Orderon 07-25-2023 Physician Order [id number]#1.00TIFF Normal [facility] Heart and Vascular Office/Cl inic [...] cardiac clearance. Apparently she had gone to [place] ER for SVT. She was ordered an event monitor and echocardiogram. Insurance has denied her echocardiogram. She had essentially normal echo in 2020. She had a cath with Dr. Beltran in 2019 with normal coronary arteries. She had her foot surgery without event. Here today now for another [place] ER visit. She had chest pain and [...] 4. Normal estimated pulmonary artery pressure. [2] [facility] 03/03/2020 CONCLUSIONS: 1. Essentially normal coronary [...] with voice recognition artificial intelligence software, specifically [employer], [email or web address] and or GoPlaceIt. Substitutions may have occurred due to the inherent limitations of voice recognition and artificial intelligence software. Follow-up With When Contact Information WILL WALSH, Elliott Grewal [address] [place] [phone]- [phone] Additional Instructions: Follow up post event Problem [...] of Downey's (more content not included)... Normal [facility] Comment on above: Result Comment: Elec tronically Signed By: Cady CALIX CNP\.br\Date and Time Signed: 07/18/23 14:27 EST Outside Recordson 07-08-2023 Outside Records [id number]#1.00TIFF Normal [facility] Physician Orderon 07-05-2023 Physician Order [id number]#1.00TIFF [facility] Consent for Treatmenton 05-20 Consent for Treatment [id number]#1.00TIFF Normal [facility] Retail - Clinical Noteon Retail - Clinical Note [id number]#1.00TIFF [facility] Insurance Correspondenceon 1 Insurance Correspondence [id number]#1.00TIFF [facility] Outside Recordson 05-24-2023 Outside Records [id number]#1.00TIFF [facility] Outside Records [id number]#1.00TIFF [facility] Heart and Vascular Office/Cl inic Noteon 05-21-2023 Heart and Vascular Office/Clinic Note Chief Complaint [place] [facility] F/U- Tachycardia History of Present Illness [...] for foot surgery. Unfortunately, she presented to [place] [facility] on 05/19/2023 with complaints of palpitations. [...] intact- no rash or concerning lesions Procedure [facility]- Dr Fragoso 03/03/20 CONCLUSIONS: 1. Essentially normal coronary arteriograms. 2. Noncardiac chest pain. [1] [facility] Diagnostics (06/07/2021 14:15 EDT Echo Transthoracic Complete) SUMMARY/CONCLUSION: 1. Normal left ventricle and right ventricle. 2. Borderline impaired diastolic relaxation. 3. No significant valve disease. 4. Normal estimated pulmonary artery pressure. [2] [1] Assessment/Plan 1. Sinus tachycardia (R00.0: Tachycardia, unspecified) In [place] ER for palpitation, noted to be sinus [...] with voice recognition artificial intelligence software, specifically [employer], [employer] and or GoPlaceIt. Substitutions may have occurred due to the inherent limitations of voice recognition and artificial intelligence software. Follow-up With When Contact Information WILL WALSH, Elliott Grewal Within 6 weeks [address] [place] [address]- [phone] Additional Instructions: Problem List/Past Medical History Ongoing [...] (03/14/2020), Catheter (more content not included)... Normal [facility] Comment on above: Result Comment: Elec tronically Signed By: Cady CALIX CNP\.rosi\Date and Time Signed: 05/21/23 12:56 EDT Consent for Treatmenton Consent for Treatment [id number]#1.00CD:127 Normal [facility] Physician Orderon 05-20-2023 Physician Order [id number]#1.00CD:127 Normal [facility] Physician Orderon 05-17-2023 Physician Order Confirmed with Ana Rosa olivas @ [facility] that fax was received [id number]#1.00CD:127 Normal [facility] Consent for Treatmenton 04-20 Consent for Treatment [id number]#1.00CD:127 Normal [facility] Heart and Vascular Office/Cl inic [...] Esophagogastroduodenoscopy ( (more content not included)... Normal [facility] Comment on above: Result Comment: Elec tronically Signed By: WILL WALSH, Elliott Russell.rosi\Date and Time Signed: 05/16/23 10:46 EDT Physician Orderon 05-16-2023 Physician Order [id number]#1.00CD:127 Normal [facility] XR KNEE LT 4V or [...] by: LILIANA NDIAYE Date: 2022-11-29 16:44 Normal [facility] CHEMISTRYOrdered By: Lab ROP User on 11-21-2022 Glucose [Mass/Vol] 91 mg/dL Normal 55 - 99 mg/dL [facility] POC Subsection Comment on above: Result Comment: Dahlia hoover Meter POC Device SN [id number] Invalid Interpretation Code [facility] POC Subsection POC User ID [id number] Invalid Interpretation Code [facility] POC Subsection POC Username BILLY HOGUE Invalid Interpretation Code [facility] POC Subsection CHEMISTRYOrdered By: SYSTEM SYSTEM on 10-20-2022 Anion gap [Moles/Vol] 13 mmol/L Normal 6 - 16 mEq/L [facility] Remisol Calcium [Mass/Vol] 9.5 mg/dL Normal 8.9 - 11. 1 mg/dL [facility] Remisol Chloride [Moles/Vol] 99 mmol/L Low 101 - 111 mmol/L [facility] Rem[facility] CO2 [Moles/Vol] 26 mmol/L Normal 21 - 31 mmol/L [facility] Remisol Creatinine [Mass/Vol] 1.1 mg/dL Normal 0.5 - 1.3 mg/dL [facility] Remisol GFR/1.73 sq M.predicted among blacks MDRD (S/P/Bld) [Vol rate/Area] mL/min/1.73 m2 Normal >=59mL/min /1.73 m2 [facility] Chem S GFR/1.73 sq M.predicted among non-blacks MDRD (S/P/Bld) [Vol rate/Area] 52 mL/min/1.73 m2 Low >=59mL/min /1.73 m2 [facility] S Glucose [Mass/Vol] 127 mg/dL Normal [...] AM) Normal Negative [facility] UA Auto SS [place].plasma/Lith ium.RBC (Bld) [Mass ratio] 0-3 /HPF Normal [...] [facility] UA Auto SS Urobilinogen Qn (U) 0.9967145 {Gareth'U}/dL Normal 0.0 - 1.0 EU/dL [facility] [...] 09/10/2022 : 1970 Gender:F Ordering : DR DAVID VILLALOBOS . Admission #: [id number] Family : Order #: [id number] CLICK HERE TO VIEW EXAM RADIOLOGY REPORT [...] ovarian cancer at age 60. LOCATION: [facility] BREAST COMPOSITION: Heterogeneously dense,which may obscure small [...] M.D. on 09/10/2022 at 13:54 Normal [facility] US BREAST LEFT LIMITEDon US BREAST LEFT LIMITED Patient: KETURAH HERRERA Exam Date: 09/10/2022 : 1970 Gender:F Ordering : DR DAVID VILLALOBOS . Admission #: [id number] Family : Order #: [id number] CLICK HERE TO VIEW EXAM RADIOLOGY REPORT [...] ovarian cancer at age 60. LOCATION: [facility] BREAST COMPOSITION: Heterogeneously dense,which may obscure small [...] Roach M.D. on 09/10/2022 at 13:54 Normal [facility] XR DEXA BONE DENSITYon 08-06 [...] by: DELORES ROACH Date: 2022-08-06 14:11 Normal [facility] XR CHEST 2 Von 11-16-2022 XR CHEST 2 V EXAM: XR CHEST [...] NICOLE ROJAS Date: 2022-07-04 14:11 Normal [facility] XR KNEE RT 4V or >on 022 [...] NICOLE ROJAS Date: 2022-07-03 18:12 Normal [facility] CBC AUTO DIFFon 04-30-2022 BASO # 0.1 103/ul Normal 0.0-0.1 [facility] Comment on above: Performed By: #### C BC ####[facility] [address] [place], [place] [address]KiDanica Taylor Basophils/100 WBC (Bld) 0.7 % Normal 0.2-2.0 [facility] Comment on above: Performed By: #### C BC ####[facility] [address] [place], [place] [address]QgDanica Taylor EO # 0.1 103/ul Normal 0.0-0.7 [facility] Comment on above: Performed By: #### C BC ####[facility] [address] [place] [address]Dr. Soo Brandon Eosinophils/100 WBC (Bld) 0.4 % Critically low 0.9-7.0 [facility] Comment on above: Performed By: #### C BC ####[facility] [address] [place], [place] [address]Dr. Soo Taylor Erythrocyte distribution width (RBC) [Ratio] 15.1 % Critically high 11.0-15.0 [facility] Comment on above: Performed By: #### C BC ####[facility] [address] [place], [place] [address]Dr. Soo Taylor Hematocrit (Bld) [Volume fraction] 43.4 % Normal 36.0-48.0 [facility] Comment on above: Performed By: #### C BC ####[facility] [address] [place], [place] [address]Dr. Soo Taylor Hemoglobin (Bld) [Mass/Vol] 14.4 g/dL Normal 12.0-16.0 [facility] Comment on above: Performed By: #### C BC ####[facility] [address] [place], [place] [address]Dr. Soo Taylor IG # 0.06 10e3/ul Critically high 0.00-0.[address] [facility] Comment on above: Performed By: #### C BC ####[facility] [address] [place], [place] [address]Dr. Soo Taylor IG % 0.4 % Normal 0.0-0.5 [facility] Comment on above: Performed By: #### C BC ####[facility] [address] [place], [place] [address]Dr. Soo Taylor LYMPH # 5.4 103/ul Critically high 1.2-3.8 [facility] Comment on above: Performed By: #### C BC ####[facility] [address] [place], [place] [address]Dr. Soo Taylor Lymphocytes/100 WBC (Bld) 36.6 % Normal 20.5-60.0 [facility] Comment on above: Performed By: #### C BC ####[facility] [address] [place] [address]Dr. Soo Taylor MANUAL DIFF REQ NO Normal [facility] Comment on above: Performed By: #### C BC ####[facility] [address] [place], [place] [address]Dr. Soo Taylor MCH (RBC) [Entitic mass] 29.4 pg Normal 26.7-34.0 [facility] Comment on above: Performed By: #### C BC ####[facility] [address] [place], [place] [address]Dr. Soo Taylor MCHC (RBC) [Mass/Vol] 33.2 g/dL Normal 29.9-35.2 [facility] Comment on above: Performed By: #### C BC ####[facility] [address] [place], [place] [address]Dr. Soo Taylor MCV (RBC) [Entitic vol] 88.6 fL Normal 81.0-99.0 [facility] Comment on above: Performed By: #### C BC ####[facility] [address] [place], [place] [address]DrDanica Taylor MONO # 0.9 103/ul Critically high 0.3-0.8 [facility] Comment on above: Performed By: #### C BC ####[facility] [address] [place], [place] [address]Dr. Soo Taylor Monocytes/100 WBC (Bld) 6.4 % Normal 1.7-12.0 [facility] Comment on above: Performed By: #### C BC ####[facility] [address] [place], [place] [address]DrDanica Taylor NEUT # 8.1 103/ul Critically high 1.4-6.5 [facility] Comment on above: Performed By: #### C BC ####[facility] [address] [place], [place] [address]DrDanica Taylor Neutrophils/100 WBC (Bld) 55.5 % Normal 43.0-75.0 [facility] Comment on above: Performed By: #### C BC ####[facility] [address] [place] [address]Dr. Soo Taylor Platelet mean volume (Bld) [Entitic vol] 9.9 fL Normal 9.5-13.5 [facility] Comment on above: Performed By: #### C BC ####[facility] [address] [place] [address]DrDanica Taylor PLT 326 103/ul Normal 150-450 [facility] Comment on above: Performed By: #### C BC ####[facility] [address] [place], [place] [address]DrDanica Taylor RBC 4.90 106/ul Normal 4.20-5.40 [facility] Comment on above: Performed By: #### C BC ####[facility] [address] [place], [place] [address]DrDanica Taylor WBC 14.6 103/ul Critically high 4.0-11.0 [facility] Comment on above: Performed By: #### C BC ####[facility] [address] [place], [place] [address]DrDanica Taylor PROF CHEM 8 (BAS METB)on Anion gap [Moles/Vol] 12.9 mmol/L Normal [facility] Comment on above: Performed By: #### B MP ####[facility] [address] [place], [place] [address]DrDanica Taylor Calcium [Mass/Vol] 9.5 mg/dL Normal 8.5-10.[address] [facility] Comment on above: Performed By: #### B MP ####[facility] [address] [place], [place] [address]DrDanica Taylor Chloride [Moles/Vol] 101 mmol/L Normal 98-107 [facility] Comment on above: Performed By: #### B MP ####[facility] [address] [place], [place] [address]DrDanica Taylor CO2 [Moles/Vol] 26.6 mmol/L Normal 21.0-32.0 [facility] Comment on above: Performed By: #### B MP ####[facility] [address] [place] [address]Dr. Soo Brandon Creatinine [Mass/Vol] 1.11 mg/dL Critically high 0.55-1.02 [facility] Comment on above: Performed By: #### B MP ####[facility] [address] [place] [address]Dr. Soo Brandon EGFR-AF PUERTO RICAN >60 Normal >=60 [facility] Comment on above: Performed By: #### B MP ####[facility] [address] [place], [place] [address]Dr. Soo Taylor EGFR-NON AF PUERTO RICAN 52 mL/min/1.73m2 Critically low >=60 [facility] Comment on above: Performed By: #### B MP ####[facility] [address] [place], [place] [address]Dr. Soo Taylor Glucose [Mass/Vol] 145 mg/dL Critically high 74-106 T [facility] Comment on above: Performed By: #### B MP ####[facility] [address] [place], [place] [address]Dr. Soo Taylor Potassium [Moles/Vol] 3.5 mmol/L Normal 3.5-5.1 [facility] Comment on above: Performed By: #### B MP ####[facility] [address] [place], [place] [address]Dr. Soo Taylor Sodium [Moles/Vol] 137 mmol/L Normal 136-[address] [facility] Comment on above: Performed By: #### B MP ####[facility] [address] [place], [place] [address]Dr. Soo Taylor Urea nitrogen [Mass/Vol] 2.0 mg/dL Critically low 7.0-18.0 [facility] Comment on above: Performed By: #### B MP ####[facility] [address] [place], [place] [address]Dr. Soo Taylor Urea nitrogen/Creatinine [Mass ratio] 1.8 mg/mg Normal [facility] Comment on above: Performed By: #### B MP ####[facility] [address] [place], [place] [address]Eb. Soo Taylor TROPONIN, HIGH SENSITIVITYon 04-30-2022 HSTROP 5.1 pg/mL Normal 4.0-51.3 [facility] Comment on above: Result Comment: CUT- OFF POINTS HAVE BEEN ESTABLISHED BASED ON THE FOURTH UNIVERSAL DEFINITIONS OF MYOCARDIAL INFARCTION. THE UPPER REFERENCE LIMIT (URL) OF TROPONIN, DEFINED THE 99TH PERCENTILE OF cTnI DISTRIBUTION IN A REFERENCE POPULATION, HAS BEEN CONFIRMED THE DECISION THRESHOLD FOR OK DIAGNOSIS. Performed By: #### H STROPN ####[facility] [address] [place], [place] [address]Oi. Soo Taylor HSTROP 4.6 pg/mL Normal 4.0-51.3 [facility] Comment on above: Result Comment: CUT- OFF POINTS HAVE BEEN ESTABLISHED BASED ON THE FOURTH UNIVERSAL DEFINITIONS OF MYOCARDIAL INFARCTION. THE UPPER REFERENCE LIMIT (URL) OF TROPONIN, DEFINED THE 99TH PERCENTILE OF cTnI DISTRIBUTION IN A REFERENCE POPULATION, HAS BEEN CONFIRMED THE DECISION THRESHOLD FOR [place] DIAGNOSIS. Performed By: #### H STROPN ####[facility] [address] [place], [place] [address]Pc. Soo Taylor MRI LSPINE WO CONon 04-06-20 [...] by: MAMIE HERNANDEZ Date: 2022-04-06 18:18 Normal [facility] MRI KNEE RT WO CONon [...] by: MAMIE HERNANDEZ Date: 2022-03-28 11:40 Normal [facility] MRI SHOULDER RT WO CONon [...] MAMIE HERNANDEZ Date: 2022-03-28 09:09 Normal [facility] ER URINE PROFILEon 2 Bilirubin Ql (U) Negative Normal NEGATIVE [facility] Comment on above: Performed By: #### E RUR #### [facility] [address] [address] [address] Soo Taylor Clarity (U) CLEAR Normal CLEAR [facility] Comment on above: Performed By: #### E RUR #### [facility] [address] [place], [place] [address] Dr. Soo Taylor Color (U) LT. YELLOW Normal YELLOW [facility] Comment on above: Performed By: #### E RUR #### [facility] [address] [place] [address] Dr. Soo RUFF A micrscopic examina tion will be performed if indicated. Normal [facility] Comment on above: Performed By: #### E RUR #### [facility] [address] [address] [address] Soo Taylor Glucose Ql (U) Negative Normal NEGATIVE [facility] Comment on above: Performed By: #### E RUR #### [facility] [address] [place] [address] Dr. Soo Taylor Hemoglobin Ql (U) Negative Normal NEGATIVE [facility] Comment on above: Performed By: #### E RUR #### [facility] [address] [place] [address] Dr. Soo aTylor Ketones Ql (U) Negative Normal NEGATIVE [facility] Comment on above: Performed By: #### E RUR #### [facility] [address] [place] [address] Dr. Soo Taylor LEUKOCYTES Negative Normal NEGATIVE [facility] Comment on above: Performed By: #### E RUR #### [facility] [address] [place] [address] Dr. Soo Taylor Nitrite Ql (U) Negative Normal NEGATIVE [facility] Comment on above: Performed By: #### E RUR #### [facility] [address] [place] [address] Dr. Soo Taylor pH (U) 5.5 [pH] Normal 5-9 [facility] Comment on above: Performed By: #### E RUR #### [facility] [address] [place] [address] Dr. Soo Taylor SPEC GRAVITY <=1.005 Abnormal 1.005-<=1. 025 [facility] Comment on above: Performed By: #### E RUR #### [facility] [address] [place] [address] Dr. Soo Taylor UA PROTEIN Negative Normal NEGATIVE/ TRACE [facility] Comment on above: Performed By: #### E RUR #### [facility] [address] [address] [address] Soo Taylor UR MICRO IND NOT INDICATED Normal [facility] Comment on above: Performed By: #### E RUR #### [facility] [address] [address] [address] Soo Taylor Urobilinogen Qn (U) 0.2 {Gareth'U}/dL Normal 0.2 - 1. 0 [facility] Comment on above: Performed By: #### E RUR #### [facility] [address] [address] [address] Soo Taylor COMPREHENSIVE METABOLIC [facility] 02-22-2022 Albumin [Mass/Vol] 4.2 g/dL Normal 3.6-5.1 [facility] Comment on above: Performed By: #### 7 600, 92328, 496 #### [facility] [address] [place] [address] [address] [employer] Hand: Arjun Ramos MD Albumin/Globulin [Mass ratio] 1.8 {ratio} Normal 1.0-2.5 [facility] Comment on above: Performed By: #### 7 600, 62390, 496 #### [facility] [address] [place] [address] [employer] [address] [employer] Hand: Arjun Ramos MD ALP [Catalytic activity/Vol] 143 U/L Normal 37-153 [facility] Comment on above: Performed By: #### 7 600, 34902, 496 #### [facility] [place] [address] [employer] Hand: Arjun Ramos MD ALT [Catalytic activity/Vol] 18 U/L Normal 6-29 [facility] Comment on above: Performed By: #### 7 600, 08763, 496 #### [facility] [place] [address] [employer] Hand: Arjun Ramos MD AST [Catalytic activity/Vol] 14 U/L Normal 10-35 [facility] Comment on above: Performed By: #### 7 600, 98110, 496 #### [facility] [place] [address] [employer]: Arjun Ramos MD Bilirubin [Mass/Vol] 0.5 mg/dL Normal 0.2-1.2 [facility] Comment on above: Performed By: #### 7 600, 73768, 496 #### [facility] [place] [address] [employer] [address] [employer]: Arjun Ramos MD Calcium [Mass/Vol] 10.0 mg/dL Normal 8.6-10.4 [facility] Comment on above: Performed By: #### 7 600, 45228, 496 #### [facility] [place] [address] [employer] Hand: Arjun Ramos MD Chloride [Moles/Vol] 100 mmol/L Normal 98-110 [facility] Comment on above: Performed By: #### 7 600, 18821, 496 #### [facility] [place] [address] [employer] Hand: Arjun Ramos MD CO2 [Moles/Vol] 29 mmol/L Normal 20-32 [facility] Comment on above: Performed By: #### 7 600, 78755, 496 #### [facility] [place] [address] [employer]: Arjun Ramos MD Creatinine [Mass/Vol] 0.86 mg/dL Normal 0.50-1.05 [facility] Comment on above: Result Comment: For patients >49 years of age, the reference limit for Creatinine is approximately 13% higher for people identified as -British. Performed By: #### 7 600, 30842, 496 #### [facility] [place] [address] [employer] Hand: Arjun Ramos MD eGFR NON-AFR. PUERTO RICAN 78 mL/min/1.73m2 Normal > OR = 60 [facility] Comment on above: Performed By: #### 7 600, 54971, 496 #### [facility] [address] [place] [address] [employer]: Arjun Ramos MD GFR/1.73 sq M.predicted among blacks MDRD (S/P/Bld) [Vol rate/Area] 91 mL/min/{1.73_m2} Normal > OR = 60 [facility] Comment on above: Performed By: #### 7 600, 58475, 496 #### [facility] [place] [address] [employer] Hand: Arjun Ramos MD Globulin (S) [Mass/Vol] 2.4 g/dL Normal 1.9-3.7 [facility] Comment on above: Performed By: #### 7 600, 76386, 496 #### [facility] [place] [address] [employer] Hand: Arjun Ramos MD Glucose [Mass/Vol] 125 mg/dL Normal 65-139 [facility] Comment on above: Result Comment: Non-fasting reference interval For someone without known diabetes, a glucose value between 100 and 125 mg/dL is consistent with prediabetes and should be confirmed with a follow-up test. Performed By: #### 7 600, 23082, 496 #### [facility] [place] [address] [employer]: Arjun Ramos MD Potassium [Moles/Vol] 3.6 mmol/L Normal 3.5-5.3 [facility] Comment on above: Performed By: #### 7 600, 16960, 496 #### [facility] [place] [address] [employer] [address] [employer] Hand: Arjun Ramos MD Protein [Mass/Vol] 6.6 g/dL Normal 6.1-8.1 [facility] Comment on above: Performed By: #### 7 600, 24285, 496 #### [facility] [place] [address] [employer] Hand: Arjun Ramos MD Sodium [Moles/Vol] 139 mmol/L Normal 135-146 [facility] Comment on above: Performed By: #### 7 600, 01386, 496 #### [facility] [address], [address] [place] [address] [employer]: Arjun Ramos MD Urea nitrogen [Mass/Vol] 4 mg/dL Low 7-25 [facility] Comment on above: Performed By: #### 7 600, 45986, 496 #### [facility] [address], [address] [place] [address] [employer]: Arjun Ramos MD Urea nitrogen/Creatinine [Mass ratio] 5 mg/mg Low 6-22 [facility] Comment on above: Performed By: #### 7 600, 32139, 496 #### [facility] [address], [address] [place] [address] [employer] Hand: Arjun Ramos MD HEMOGLOBIN A1con 02-22-2022 HEMOGLOBIN [...] diagnosis of diabetes in children. According to [place] Diabetes Association (ADA) guidelines, hemoglobin A1c <7.0% represents optimal control in non- diabetic patients. Different metrics may apply to specific patient populations. Standards of Medical Care in Diabetes(ADA). Performed By: #### 7 600, 57607, 496 #### [facility] [address], [address] [place] [address] [employer]: Arjun Ramos MD LIPID PANEL, STANDARDon Cholesterol [Mass/Vol] 187 mg/dL Normal <200 [facility] Comment on above: Order Comment: FASTI NG:NO FASTING: NO Performed By: #### 7 600, 62352, 496 #### [facility] [address], [address] [place] [address] [employer]: Arjun Ramos MD Cholesterol in HDL [Mass/Vol] 43 mg/dL Low > OR = 50 [facility] Comment on above: Order Comment: FASTI NG:NO FASTING: NO Performed By: #### 7 600, 38938, 496 #### [facility] [address], [address] [place] [address] [employer]: Arjun Raoms MD Cholesterol.total/C holesterol in HDL [Mass ratio] 4.3 {ratio} Normal <5.0 [facility] Comment on above: Order Comment: FASTI NG:NO FASTING: NO Performed By: #### 7 600, 52830, 496 #### [facility] [address], [address] [place] [address] [employer]: Arjun Ramos MD LDL-CHOLESTEROL Normal [facility] [...] LDL-C. Lan MARTÍNEZ et al. KELLY. 2013;310(19): 5544-4002 (http://education.HomeCon.Housing.com/faq/FWQ465) Performed By: #### 7 600, 70678, 496 #### [facility] [address], [address] [place] [address] [employer] Hand: Arjun Ramos MD NON HDL CHOLESTEROL 144 mg/dL (calc) High <130 [facility] Comment on above: Order Comment: FASTI NG:NO FASTING: NO Result Comment: For patients with diabetes plus 1 major ASCVD risk factor, treating to a non-HDL-C goal of <100 mg/dL (LDL-C of <70 mg/dL) is considered a therapeutic option. Performed By: #### 7 600, 34804, 496 #### [facility] [address], [address] [place] [address] [employer]: Arjun Ramos MD Triglyceride [Mass/Vol] 425 mg/dL High <150 [facility] Comment on above: Order Comment: FASTI NG:NO FASTING: NO Result Comment: If a non-fasting specimen was collected, consider repeat triglyceride testing on a fasting specimen if clinically indicated. Heber et al. J. of Clin. Lipidol. 2015;9:129-169. Performed By: #### 7 600, 62736, 496 #### [facility] [address], [address] [place] [address] [employer]: Arjun Ramos MD HEMOGLOBIN A1con 11-14-2021 HEMOGLOBIN [...] #### 7 600, 496 #### [facility] [address], [address] [place] [address] [employer] Hand: Arjun Ramos MD LIPID PANEL, STANDARDon 10-18 Cholesterol [Mass/Vol] 184 mg/dL Normal <200 [facility] Comment on above: Order Comment: FASTI NG:YES FASTING: YES Performed By: #### 7 600, 496 #### [facility] [address], [address] [place] [address] [employer] Hand: Arjun Ramos MD Cholesterol in HDL [Mass/Vol] 32 mg/dL Low > OR = 50 [facility] Comment on above: Order Comment: FASTI NG:YES FASTING: YES Performed By: #### 7 600, 496 #### [facility] [address], [address] [place] [address] [employer] Hand: Arjun Ramos MD Cholesterol.total/C holesterol in HDL [Mass ratio] 5.8 {ratio} High <5.0 [facility] Comment on above: Order Comment: FASTI NG:YES FASTING: YES Performed By: #### 7 600, 496 #### [facility] [address], [address] [place] [address] [employer] Hand: Arjun Ramos MD LDL-CHOLESTEROL Normal [facility] [...] LDL-C. Lan MARTÍNEZ et al. KELLY. 2013;310(19): 2868-7341 (http://education.HomeCon.Housing.com/faq/LAV300) Performed By: #### 7 600, 496 #### [facility] [address], [address] [place] [address] [employer] Hand: Arjun Ramos MD NON HDL CHOLESTEROL 152 mg/dL (calc) High <130 [facility] Comment on above: Order Comment: FASTI NG:YES FASTING: YES Result Comment: For patients with diabetes plus 1 major ASCVD risk factor, treating to a non-HDL-C goal of <100 mg/dL (LDL-C of <70 mg/dL) is considered a therapeutic option. Performed By: #### 7 600, 496 #### [facility] [address], [address] [place] [address] [employer] Hand: Arjun Ramos MD Triglyceride [Mass/Vol] 531 mg/dL High <150 [facility] Comment on above: Order Comment: FASTI NG:YES FASTING: YES Result Comment: If a non-fasting specimen was collected, consider repeat triglyceride testing on a fasting specimen if clinically indicated. Heber lyons al. J. of Clin. Lipidol. 2015;9:129-169. There is increased risk of pancreatitis when the triglyceride concentration is very high (> or = 500 mg/dL, especially if > or = 1000 mg/dL). Anna. J. of Clin. Lipidol. 2015;9:129-169. Performed By: #### 7 600, 496 #### [facility] [address], [address] [place] [address] [employer]: Arjun Ramos MD CNOVon 06-27-2021 CNOV Office Visit (OTOLCC ) KETURAH HERRERA ([id number]) 1970 F Date Time Provider Department 06/27/21 2:00 PM YE RODRIGUEZ OTOL During your visit today, we recorded the following information about you: Temperature Pulse 97.3 degrees 82/minute Ye Rodriguez PA-C 06/27/2021 4:56 PM Signed [facility] NOTE CC: Keturah Herrera is a [...] bipolar - COPD (chronic obstructive pulmonary disease) ([facility]) - Depression - Ana Laura-Danlos disease [...] mg ta (more content not included)... [facility]SA [facility] KETURAH HERRERA ([id number]) 1970 F Date Time Provider Department 04/19/21 1:30 PM RANDI FARRELL During your visit today, we recorded the following information about you: Randi Farrell, 04/19/2021 1:59 PM Sign when Signing Visit [...] - Fully Assessed Reason for Visit: New [088089] Fracture [4131] Primary Visit Diagnosis:Other closed nondisplaced fracture of proximal end of left humerus, initial encounter [S42.295A] Other Visit Diagnosis:Right elbow pain [M25.521] Order(s):XR ELBOW SPECIAL VIEWS AP/LAT/OTHER RT [[id number]] Order #: [id number] FUTURE CONSULT TO MEDICAL ENGINEER [[id number]] Order #: [id number]: 1 FUTURE Prescriptions as of 04/19/2021 - [...] of att (more content not included)... Normal [facility] XR ELBOW 3V AP/LAT/OTHER RTo n [...] NO ACUTE OSSEOUS ABNORMALITY OTHER FINDINGS DESCRIBED [employer] Officer: DIONNE Transcribe Date/Time: Apr 19 2021 2:38P Dictated by : CAROL ROCHE MD This examination was interpreted and the report reviewed and electronically signed by: CAROL ROCHE MD on Apr 19 2021 2:39PM EST [id number] Normal [facility] XR Elbow - right AP and Late ral and obliqueon 04-19-2021 IMPRESSION: NO ACUTE OSSEOUS ABNORMALITY OTHER FINDINGS DESCRIBED [employer] Officer: DIONNE Transcribe Date/Time: Apr 19 2021 2:38P Dictated by : CAROL ROCHE MD This examination was interpreted and the report reviewed and electronically signed by: CAROL ROCHE MD on Apr 19 2021 2:39PM [facility] DIVISION OF RADIOLOGY * * *Final Report* * * DATE [...] spaces are normal. No other significant abnormality. DIVISION OF RADIOLOGY Provider, [facility] - 04/19/2021 * * *Final Report* * * DATE [...] spaces are normal. No other significant abnormality. 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 IMPRESSION: HEALING FRACTURE [employer] Officer: DIONNE Transcribe Date/Time: Apr 19 2021 2:02P Dictated by : CAROL ROCHE MD This examination was interpreted and the report reviewed and electronically signed by: CAROL ROCHE MD on Apr 19 2021 2:02PM EST [id number] Normal [facility] XR Shoulder - right 3 Viewso n 04-19-2021 IMPRESSION: HEALING FRACTURE [employer] Officer: DIONNE Transcribe Date/Time: Apr 19 2021 2:02P Dictated by : CAROL ROCHE MD This examination was interpreted and the report reviewed and electronically signed by: CAROL ROCHE MD on Apr 19 2021 2:02PM EST DIVISION OF RADIOLOGY * * *Final Report* * * DATE [...] are normal. Osteopenia. No other significant abnormality. DIVISION OF RADIOLOGY Provider, Lenore Nunez [facility] - 04/19/2021 * * *Final Report* * * DATE [...] are normal. Osteopenia. No other significant abnormality. IMPRESSION IMPRESSION: HEALING FRACTURE [employer] Officer: DIONNE Transcribe Date/Time: Apr 19 2021 2:02P Dictated by : CAROL ROCHE MD This examination was interpreted and the report reviewed and electronically signed by: CAROL ROCHE MD on Apr 19 2021 2:02PM EST [facility] Radiology Study observation (narrative) [facility] XR Shoulder - right 3 ViewsO rdered By: Ccf Provider on 04-19-2021 [facility] Vital Signs Date Time Vital Sign Value Performing Clinician Facility 05-20-2024 11:08-0400 Body height 162.6 cm Alexsandra Verhoff PA-C Work Phone: [facility] 05-20-2024 11:08-0400 Body mass index (BMI) [Ratio] 28.63 kg/m2 Alexsandra Verhoff PA-C Work Phone: [facility] [email or web address] [facility] 05-20-2024 11:08-0400 Body weight 75.66 kg Alexsandra [facility]hoff [facility]-C [facility] 05-20-2024 11:08-0400 Diastolic blood pressure 82 mm[Hg] Alexsandra Verhoff PA-C [facility] [employer] 05-20-2024 11:08-0400 Heart rate 75 /min Alexsandra Verhoff PA-C [facility] [facility] 05-20-2024 11:08-0400 Systolic blood pressure 139 mm[Hg] Alexsandra Verhoff PA-C Work Phone: [facility] 03-05-2024 15:16-0400 Diastolic blood pressure 69 mm[Hg] Andrew Eid [facility] 03-05-2024 15:16-0400 Heart rate 62 /min Andrew Eid [facility] 03-05-2024 15:16-0400 Mean blood pressure 84 mm[Hg] Andrew Eid [facility] 03-05-2024 15:16-0400 Respiratory rate 14 /min Andrew Eid [facility] 03-05-2024 15:16-0400 Systolic blood pressure 115 mm[Hg] Andrew Eid [facility] 01-30-2024 13:54-0400 Diastolic blood pressure 68 mm[Hg] En Carmen [facility] 01-30-2024 13:54-0400 Systolic blood pressure 124 mm[Hg] En Carmen [facility] 01-15-2024 08:16-0400 Diastolic blood pressure 70 mm[Hg] Cady Ethical Deal [facility] 01-15-2024 08:16-0400 Heart rate 73 /min [employer] [facility] 01-15-2024 08:16-0400 Mean blood pressure 82 mm[Hg] Cady [employer] Deal [facility] 01-15-2024 08:16-0400 Respiratory rate 16 /min Cady [employer] Deal [facility] 01-15-2024 08:16-0400 Systolic blood pressure 105 mm[Hg] Cady [employer] Deal [facility] 01-01-2024 11:04-0400 Diastolic blood pressure 71 mm[Hg] Cady Ethical Deal [facility] 01-01-2024 11:04-0400 Heart rate 62 /min [employer]ady [employer] [facility] 01-01-2024 11:04-0400 Mean blood pressure 91 mm[Hg] Cady [employer] Deal [facility] 01-01-2024 11:04-0400 Respiratory rate 12 /min [employer] [facility] 01-01-2024 11:04-0400 Systolic blood pressure 131 mm[Hg] Cady [employer] [facility] 12-31-2023 12:53-0400 Blood Pressure Location POLLY MARIANO [facility] 12-31-2023 12:53-0400 Diastolic blood pressure 65 mm[Hg] POLLY MARIANO [facility] 12-31-2023 12:53-0400 Heart rate 57 /min POLLY MARIANO [facility] 12-31-2023 12:53-0400 Respiratory rate 16 /min POLLY MARIANO [facility] 12-31-2023 12:53-0400 Systolic blood pressure 117 mm[Hg] POLLY MARIANO [facility] 12-11-2023 09:29-0400 Heart rate 89 /min Andrew Eid [facility] 12-11-2023 09:29-0400 SaO2% (BldA) [Mass fraction] 96 % Andrew Eid [facility] 12-11-2023 09:29-0400 Diastolic blood pressure 86 mm[Hg] Andrew Eid [facility] 12-11-2023 09:29-0400 Mean blood pressure 103 mm[Hg] Andrew Eid [facility] 12-11-2023 09:29-0400 Systolic blood pressure 137 mm[Hg] Andrew Eid [facility] 12-11-2023 09:29-0400 Respiratory rate 14 /min Andrew Eid [facility] 12-11-2023 09:25-0400 Diastolic blood pressure 84 mm[Hg] Andrew Eid [facility] 12-11-2023 09:25-0400 Heart rate 97 /min Andrew Eid [facility] 12-11-2023 09:25-0400 SaO2% (BldA) [Mass fraction] 96 % Andrew Eid [facility] 12-11-2023 09:25-0400 Systolic blood pressure 141 mm[Hg] Andrew Eid [facility] 12-11-2023 08:44-0400 Heart rate 93 /min Andrew Eid [facility] 12-11-2023 08:44-0400 SaO2% (BldA) [Mass fraction] 94 % Andrew Eid [facility] 12-11-2023 08:44-0400 Body temperature 98.24 [degF] Andrew Eid [facility] 12-11-2023 08:43-0400 Diastolic blood pressure 86 mm[Hg] Andrew Eid [facility] 12-11-2023 08:43-0400 Mean blood pressure 102 mm[Hg] Andrew Eid [facility] 12-11-2023 08:43-0400 Systolic blood pressure 134 mm[Hg] Andrew Eid [facility] 12-11-2023 08:43-0400 Respiratory rate 15 /min Andrew Eid [facility] 11-06-2023 09:32-0400 Diastolic blood pressure 71 mm[Hg] Cady Alva [facility] 11-06-2023 09:32-0400 Heart rate 79 /min Cady Alva [facility] 11-06-2023 09:32-0400 Mean blood pressure 84 mm[Hg] Cady Alva [facility] 11-06-2023 09:32-0400 Respiratory rate 15 /min Cady Alva [facility] 11-06-2023 09:32-0400 Systolic blood pressure 111 mm[Hg] Cady Alva [facility] 10-03-2023 16:13-0500 Body height 162.6 cm Robert Furlong DO Work Phone: [facility] [employer] 10-03-2023 16:13-0500 Body mass index (BMI) [Ratio] 30.47 kg/m2 Robert Furlong DO Work Phone: [facility] [employer] [employer] 10-03-2023 16:13-0500 Body temperature 97.3 [degF] Robert Furlong DO Work Phone: [facility] [employer] 10-03-2023 16:13-0500 Body weight 80.51 kg Robert Furlong DO Work Phone: [facility] [employer] 10-03-2023 16:13-0500 Diastolic blood pressure 60 mm[Hg] Robert Furlong DO Work Phone: [facility] [employer] 10-03-2023 16:13-0500 Heart rate 67 /min Robert Furlong DO Work Phone: [facility] [employer] 10-03-2023 16:13-0500 SaO2% (BldA) [Mass fraction] 98 % Robert Furlong DO Work Phone: [facility] [employer] 10-03-2023 16:13-0500 Systolic blood pressure 118 mm[Hg] Robert Furlong DO Work Phone: [facility] 09-26-2023 15:11-0500 Body height 165.1 cm Martin Arango DPM Work Phone: [facility] 09-26-2023 15:11-0500 Body mass index (BMI) [Ratio] 29.29 kg/m2 Martin Arango DPM Work Phone: [facility] 09-26-2023 15:11-0500 Body weight 79.83 kg Martin Arango DPM Work Phone: [facility] 09-26-2023 15:11-0500 Diastolic blood pressure 80 mm[Hg] Martin Arango DPM Work Phone: [facility] 09-26-2023 15:11-0500 Heart rate 79 /min Martin Arango DPM Work Phone: [facility] 09-26-2023 15:11-0500 Systolic blood pressure 133 mm[Hg] Martin Arango DPM Work Phone: [facility] 09-17-2023 08:23-0500 Blood Pressure Location POLLY YUDY [facility] 09-17-2023 08:23-0500 Diastolic blood pressure 52 mm[Hg] POLLY YUDY [facility] 09-17-2023 08:23-0500 Heart rate 65 /min POLLY YUDY [facility] 09-17-2023 08:23-0500 Respiratory rate 16 /min POLLY YUDY [facility] 09-17-2023 08:23-0500 Systolic blood pressure 135 mm[Hg] POLLY YUDY [facility] 08-27-2023 10:30-0500 Body height 165.1 cm Valarie Javier Other [employer] Other 08-27-2023 10:30-0500 Body mass index (BMI) [Ratio] 29.28 kg/m2 Valarie Javier Other [employer] Other 08-27-2023 10:30-0500 Body temperature 97.2 [degF] Valarie Javier Other [employer] Other 08-27-2023 10:30-0500 Body weight 79.83 kg Valarie Javier Other [employer] Other 08-27-2023 10:30-0500 Diastolic blood pressure 80 mm[Hg] Valarie Javier Other [employer] Other 08-27-2023 10:30-0500 Respiratory rate 20 /min Valarie Javier Other [employer] Other 08-27-2023 10:30-0500 SaO2% (BldA) [Mass fraction] 93 % Valarie Javier Other [employer] Other 08-27-2023 10:30-0500 Systolic blood pressure 132 mm[Hg] Valarie Javier Other [employer] Other 07-25-2023 10:39-0500 Blood Pressure Location Elliott SOLIS [facility] 07-25-2023 10:39-0500 Diastolic blood pressure 82 mm[Hg] Elliott SOLIS [facility] 07-25-2023 10:39-0500 Heart rate 76 /min Elliott SOLIS [facility] 07-25-2023 10:39-0500 SaO2% (BldA) [Mass fraction] 97 % Elliott SOLIS [facility] 07-25-2023 10:39-0500 Systolic blood pressure 138 mm[Hg] Elliott SOLIS [facility] 07-05-2023 15:44-0500 Blood Pressure Location Cady CALIX [facility] 07-05-2023 15:44-0500 Diastolic blood pressure 83 mm[Hg] Cadyblaine KLEING [facility] 07-05-2023 15:44-0500 Heart rate 70 /min Cadyblaine KLEING [facility] 07-05-2023 15:44-0500 SaO2% (BldA) [Mass fraction] 99 % Cadyblaine KLEING [facility] 07-05-2023 15:44-0500 Systolic blood pressure 138 mm[Hg] Cadyblaine KLEING [facility] 05-20-2023 10:03-0400 Blood Pressure Location Cadyblaine CALIX [facility] 05-20-2023 10:03-0400 Diastolic blood pressure 80 mm[Hg] Cadyblaine CALIX [facility] 05-20-2023 10:03-0400 Heart rate 75 /min Cadyblaine ACLIX [facility] 05-20-2023 10:03-0400 SaO2% (BldA) [Mass fraction] 98 % Cadyblaine CALIX [facility] 05-20-2023 10:03-0400 Systolic blood pressure 130 mm[Hg] Cadyblaine KLEING [facility] 02-26-2023 08:30-0400 Body height 165.1 cm Valarie Javier Other [employer] Other 02-26-2023 08:30-0400 Body mass index (BMI) [Ratio] 28.25 kg/m2 Valarie Javier Other [employer] Other 02-26-2023 08:30-0400 Body temperature 96.9 [degF] Valarie Javier Other [employer] Other 02-26-2023 08:30-0400 Body weight 77.02 kg Valarie Javier Other [employer] Other 02-26-2023 08:30-0400 Diastolic blood pressure 84 mm[Hg] Valarie Javier Other [employer] Other 02-26-2023 08:30-0400 Respiratory rate 20 /min Valarie Javier Other [employer] Other 02-26-2023 08:30-0400 SaO2% (BldA) [Mass fraction] Valarie Javier Other [employer] Other 02-26-2023 08:30-0400 Systolic blood pressure 138 mm[Hg] Valarie Javier Other [facility] [employer] Other 01-17-2023 10:04-0400 Diastolic blood pressure 76 mm[Hg] Poole SALAM [facility] 01-17-2023 10:04-0400 Heart rate 70 /min Poole SALAM [facility] 01-17-2023 10:04-0400 Mean blood pressure 100 mm[Hg] Poole SALAM [facility] 01-17-2023 10:04-0400 Respiratory rate 17 /min Poole SALAM [facility] 01-17-2023 10:04-0400 SaO2% (BldA) [Mass fraction] 99 % Poole SALAM [facility] 01-17-2023 10:04-0400 Systolic blood pressure 149 mm[Hg] Poole SALAM [facility] 01-17-2023 09:55-0400 Diastolic blood pressure 80 mm[Hg] Poole SALAM [facility] 01-17-2023 09:55-0400 Heart rate 74 /min Poole SALAM [facility] 01-17-2023 09:55-0400 Mean blood pressure 97 mm[Hg] Poole SALAM [facility] 01-17-2023 09:55-0400 Respiratory rate 15 /min Poole SALAM [facility] 01-17-2023 09:55-0400 SaO2% (BldA) [Mass fraction] 99 % Poole SALAM [facility] 01-17-2023 09:55-0400 Systolic blood pressure 132 mm[Hg] Poole SALAM [facility] 01-17-2023 09:50-0400 Diastolic blood pressure 79 mm[Hg] Poole SALAM [facility] 01-17-2023 09:50-0400 Heart rate 73 /min Poole SALAM [facility] 01-17-2023 09:50-0400 Mean blood pressure 94 mm[Hg] Poole SALAM [facility] 01-17-2023 09:50-0400 Respiratory rate 13 /min Pooel SALAM [facility] 01-17-2023 09:50-0400 SaO2% (BldA) [Mass fraction] 98 % Poole SALAM [facility] 01-17-2023 09:50-0400 Systolic blood pressure 125 mm[Hg] Poole SALAM [facility] 01-17-2023 09:39-0400 Body temperature 98.24 [degF] Zulema CRAMER [facility] 01-17-2023 08:35-0400 Blood Pressure Location Zulema CRAMER [facility] 01-17-2023 08:35-0400 Body temperature 98.06 [degF] Zulema CRAMER [facility] 11-21-2022 12:41-0400 Heart rate 61 /min Martin Conchita [facility] 11-21-2022 12:41-0400 SaO2% (BldA) [Mass fraction] 97 % Martin Arango [facility] 11-21-2022 12:41-0400 Diastolic blood pressure 64 mm[Hg] Martin Arango [facility] 11-21-2022 12:41-0400 Mean blood pressure 85 mm[Hg] Martin Conchita [facility] 11-21-2022 12:41-0400 Systolic blood pressure 128 mm[Hg] Martin Conchita [facility] 11-21-2022 12:41-0400 Body temperature 96.98 [degF] Martin Arango [facility] 11-21-2022 12:40-0400 Respiratory rate 16 /min Martin Brown [facility] 11-21-2022 11:09-0400 Heart rate 66 /min Martin Brown [facility] 11-21-2022 11:09-0400 SaO2% (BldA) [Mass fraction] 100 % Martin Arango [facility] 11-21-2022 11:09-0400 Diastolic blood pressure 68 mm[Hg] Martin Arango [facility] 11-21-2022 11:09-0400 Mean blood pressure 84 mm[Hg] Martin Arango [facility] 11-21-2022 11:09-0400 Systolic blood pressure 116 mm[Hg] Martin Arango [facility] 11-21-2022 11:09-0400 Body temperature 98.06 [degF] Martin Arango [facility] 11-21-2022 11:08-0400 Respiratory rate 14 /min Martin Arango [facility] 11-21-2022 10:55-0400 Body temperature 97.16 [degF] Martindariana Arango [facility] 11-21-2022 10:55-0400 Diastolic blood pressure 85 mm[Hg] Martin Arango [facility] 11-21-2022 10:55-0400 Heart rate 65 /min Martin Arango [facility] 11-21-2022 10:55-0400 Mean blood pressure 98 mm[Hg] Martindariana Arango [facility] 11-21-2022 10:55-0400 Respiratory rate 18 /min Martin Arango [facility] 11-21-2022 10:55-0400 SaO2% (BldA) [Mass fraction] 98 % Martin Arango [facility] 11-21-2022 10:55-0400 Systolic blood pressure 123 mm[Hg] Martin Arango [facility] 11-21-2022 10:45-0400 Mean blood pressure 84 mm[Hg] Martin Arango [facility] 11-21-2022 10:45-0400 Respiratory rate 15 /min Martin Arango [facility] 11-21-2022 10:30-0400 Mean blood pressure 73 mm[Hg] Martin Arango [facility] 11-21-2022 10:30-0400 Respiratory rate 13 /min Martin Arango [facility] 11-21-2022 10:15-0400 Respiratory rate 1 /min Martin Arango [facility] 11-21-2022 07:43-0400 Mean blood pressure 100 mm[Hg] Martin Arango [facility] 11-21-2022 07:43-0400 Heart rate 62 /min Martin Arango [facility] 10-30-2022 15:25-0400 Blood Pressure Location Elliott Solis [facility] 10-30-2022 15:25-0400 Diastolic blood pressure 80 mm[Hg] Elliott Solis [facility] 10-30-2022 15:25-0400 Heart rate 70 /min Elliott Solis [facility] 10-30-2022 15:25-0400 SaO2% (BldA) [Mass fraction] 95 % Elliott Solis [facility] 10-30-2022 15:25-0400 Systolic blood pressure 126 mm[Hg] Elliott Solis [facility] 10-29-2022 14:56-0400 Diastolic blood pressure 86 mm[Hg] [facility] 10-29-2022 14:56-0400 Mean blood pressure 103 mm[Hg] Inessa Carmenmetz [facility] 10-29-2022 14:56-0400 Systolic blood pressure 138 mm[Hg] Inessa Carmenmetz [facility] 10-29-2022 14:50-0400 Blood Pressure Location Inessarm CarmenNicci [facility] 10-29-2022 14:50-0400 Body temperature 97.88 [degF] Inessa Carmenmetz [facility] 10-29-2022 14:50-0400 Diastolic blood pressure 86 mm[Hg] Inessa Carmenmetz [facility] 10-29-2022 14:50-0400 Heart rate 85 /min Inessa Carmenmetz [facility] 10-29-2022 14:50-0400 Systolic blood pressure 141 mm[Hg] Inessa Carmenmetz [facility] 10-20-2022 10:33-0500 Body temperature 95.9 [degF] Santos Landry [facility] 10-20-2022 10:33-0500 Diastolic blood pressure 73 mm[Hg] Santos Landry [facility] 10-20-2022 10:33-0500 Heart rate 62 /min Santos Landry [facility] 10-20-2022 10:33-0500 Respiratory rate 18 /min Santos Landry [facility] 10-20-2022 10:33-0500 SaO2% (BldA) [Mass fraction] 100 % Santos Landry [facility] 10-20-2022 10:33-0500 Systolic blood pressure 151 mm[Hg] Santos Landry [facility] 10-12-2022 13:06-0500 Body temperature 97.7 [degF] Santos Landry [facility] 10-12-2022 13:06-0500 Diastolic blood pressure 71 mm[Hg] Santos Landry [facility] 10-12-2022 13:06-0500 Heart rate 68 /min Santos Landry [facility] 10-12-2022 13:06-0500 Respiratory rate 18 /min Santos Landry [facility] 10-12-2022 13:06-0500 SaO2% (BldA) [Mass fraction] 98 % Santos Landry [facility] 10-12-2022 13:06-0500 Systolic blood pressure 126 mm[Hg] Santos Landry [facility] 10-02-2022 12:31-0500 Blood Pressure Location Inessa Grajeda [facility] 10-02-2022 12:31-0500 Diastolic blood pressure 52 mm[Hg] Inessa Grajeda [facility] 10-02-2022 12:31-0500 Heart rate 56 /min Inessa Grajeda [facility] 10-02-2022 12:31-0500 SaO2% (BldA) [Mass fraction] 100 % Inessa Grajeda [facility] 10-02-2022 12:31-0500 Systolic blood pressure 136 mm[Hg] Inessa Grajeda [facility] 09-06-2022 10:09-0500 Blood Pressure Location Poole SALAM [facility] 09-06-2022 10:09-0500 Diastolic blood pressure 71 mm[Hg] Poole SALAM [facility] 09-06-2022 10:09-0500 Heart rate 70 /min Poole SALAM [facility] 09-06-2022 10:09-0500 Respiratory rate 22 /min Poole SALAM [facility] 09-06-2022 10:09-0500 Systolic blood pressure 145 mm[Hg] Poole SALAM [facility] 09-06-2022 10:05-0500 Blood Pressure Location Poole SALAM [facility] 09-06-2022 10:05-0500 Diastolic blood pressure 66 mm[Hg] Poole SALAM [facility] 09-06-2022 10:05-0500 Heart rate 66 /min Poole SALAM [facility] 09-06-2022 10:05-0500 Respiratory rate 20 /min Poole SALAM [facility] 09-06-2022 10:05-0500 SaO2% (BldA) [Mass fraction] 100 % Poole SALAM [facility] 09-06-2022 10:05-0500 Systolic blood pressure 94 mm[Hg] Poole SALAM [facility] 09-06-2022 10:00-0500 Heart rate 59 /min Poole SALAM [facility] 09-06-2022 10:00-0500 Respiratory rate 17 /min Poole SALAM [facility] 09-06-2022 10:00-0500 Systolic blood pressure 90 mm[Hg] Zulema CURRYAM [facility] 09-06-2022 09:55-0500 SaO2% (BldA) [Mass fraction] 100 % Poole SALAM [facility] 09-06-2022 09:40-0500 Body temperature 96.62 [degF] Poolefloyd CURRYAM [facility] 09-06-2022 07:35-0500 Body temperature 96.62 [degF] Poolefloyd CURRYAM [facility] 07-05-2022 10:00-0500 Body height 165.1 cm Valarie Javier Other [employer] Other 07-05-2022 10:00-0500 Body mass index (BMI) [Ratio] 28.95 kg/m2 Valarie Javier Other [employer] Other 07-05-2022 10:00-0500 Body temperature 97 [degF] Valarie Javier Other [employer] Other 07-05-2022 10:00-0500 Body weight 78.93 kg Valarie Javier Other [employer] Other 07-05-2022 10:00-0500 Diastolic blood pressure 77 mm[Hg] Valarie Javier Other [employer] Other 07-05-2022 10:00-0500 Respiratory rate 20 /min Valarie Javier Other [employer] Other 07-05-2022 10:00-0500 SaO2% (BldA) [Mass fraction] Valarie Javier Other [facility] [employer] Other 07-05-2022 10:00-0500 Systolic blood pressure 137 mm[Hg] Valarie Javier Other [facility] [employer] Other 05-15-2022 13:22-0400 Diastolic blood pressure 65 mm[Hg] Cadyblaine KLEING [facility] 05-15-2022 13:22-0400 Mean blood pressure 85 mm[Hg] Cadyblaine KLEING [facility] 05-15-2022 13:22-0400 Systolic blood pressure 126 mm[Hg] Cadyblaine KLEING [facility] 05-15-2022 13:08-0400 Blood Pressure Location Cadyblaine KLEING [facility] 05-15-2022 13:08-0400 Diastolic blood pressure 88 mm[Hg] Cady STANG [facility] 05-15-2022 13:08-0400 Heart rate 62 /min Cady STANG [facility] 05-15-2022 13:08-0400 Respiratory rate 18 /min Cady STANG [facility] 05-15-2022 13:08-0400 SaO2% (BldA) [Mass fraction] 100 % Cady STANG [facility] 05-15-2022 13:08-0400 Systolic blood pressure 140 mm[Hg] Cady STANG [facility] 03-20-2022 13:16-0400 Diastolic blood pressure 72 mm[Hg] Elliott Solis [facility] 03-20-2022 13:16-0400 Heart rate 73 /min Elliott Solis [facility] 03-20-2022 13:16-0400 Mean blood pressure 87 mm[Hg] Elliott Solis [facility] 03-20-2022 13:16-0400 Respiratory rate 18 /min Elliott Solis [facility] 03-20-2022 13:16-0400 Systolic blood pressure 118 mm[Hg] Elliott Solis [facility] 03-06-2022 10:27-0400 Blood Pressure Location Cady CALIX [facility] 03-06-2022 10:27-0400 Diastolic blood pressure 78 mm[Hg] Cady CALIX [facility] 03-06-2022 10:27-0400 Heart rate 68 /min Cady KLEING [facility] 03-06-2022 10:27-0400 Respiratory rate 18 /min Cady CALIX [facility] 03-06-2022 10:27-0400 SaO2% (BldA) [Mass fraction] 98 % Cadyblaine KLEING [facility] 03-06-2022 10:27-0400 Systolic blood pressure 137 mm[Hg] Cadyblaine KLEING [facility] 01-11-2022 15:06-0400 Diastolic blood pressure 83 mm[Hg] Poole SALAM [facility] 01-11-2022 15:06-0400 Heart rate 61 /min Poole SALAM [facility] 01-11-2022 15:06-0400 Systolic blood pressure 136 mm[Hg] Poole SALAM [facility] 12-11-2021 12:00-0400 Blood Pressure Location Donaldo PEARSON [facility] 12-11-2021 12:00-0400 Diastolic blood pressure 75 mm[Hg] [facility] 12-11-2021 12:00-0400 Heart rate 78 /min Donaldo PEARSON [facility] 12-11-2021 12:00-0400 Systolic blood pressure 107 mm[Hg] Donaldo PEARSON [facility] Encounters Encounter Date Encounter Type Care Provider Facility Start: 06-08-2024 End: 06-08-2024 Telephone encounter Alexsandra Smart PA-C Work Phone: [facility] Start: 06-05-2024 End: 06-05-2024 ambulatory [facility] Start: 06-05-2024 End: 06-05-2024 ambulatory [facility] Start: 05-28-2024 End: 05-28-2024 Refill Robert Giron DO Work Phone[facility] Start: 05-28-2024 End: 05-28-2024 Telephone encounter Amaris Huynh MA [facility] Start: 05-26-2024 End: 05-27-2024 Refill Robert Giron DO Work Phone: [facility] Comment on above: Anxiety Start: 05-20-2024 End: 05-20-2024 Office outpatient visit 25 minutes Alexsandra Smart PA-C Work Phone: [facility] Comment on above: 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 (Primary Dx); Chronic pain of left knee Start: 05-20-2024 End: 05-20-2024 ambulatory ALEXSANDRA SMART [facility] Start: 05-18-2024 End: 05-18-2024 ambulatory DUANE [facility] Start: 05-18-2024 End: 05-19-2024 Telephone encounter Leonor Kunz CNA [facility] Start: 05-04-2024 End: 05-04-2024 ambulatory [facility] Start: 04-30-2024 End: 04-30-2024 ambulatory [facility] Start: 04-27-2024 End: 04-27-2024 ambulatory NURIA SANCHEZ Not Available Start: 04-23-2024 End: 04-23-2024 ambulatory MARTIN ARANGO Not Available Start: 04-23-2024 End: 04-23-2024 ambulatory MARTIN Queenie BROWN Not Available Start: 04-21-2024 End: 04-21-2024 ambulatory PASTORA LYNN Not Available Start: 04-15-2024 End: 04-15-2024 ambulatory KAYLAH CORONADO Not Available Start: 04-14-2024 End: 04-14-2024 ambulatory PASTORA LYNN Not Available Start: 04-13-2024 End: 04-13-2024 ambulatory CJ B APLING Not Available Start: 04-09-2024 End: 04-09-2024 ambulatory MARTIN A BROWN Not Available Start: 04-08-2024 End: 04-08-2024 ambulatory CJ B APLING Not Available Start: 04-02-2024 End: 04-02-2024 ambulatory MARTIN A BROWN Not Available Start: 03-31-2024 End: 03-31-2024 Patient encounter procedure DO Robert Giron Work Phone: [facility] [address] Work Phone: Start: 03-31-2024 End: 03-31-2024 ambulatory DO Robert Giron Work Phone: [facility] Work Phone: Start: 03-27-2024 End: 03-27-2024 ambulatory KURT CHAPMAN [facility] Start: 03-20-2024 End: 03-20-2024 ambulatory ANA CORONADO Not Available Start: 03-17-2024 End: 03-17-2024 ambulatory ANA CORONADO Not Available Start: 03-13-2024 End: 03-13-2024 ambulatory ANA CORONADO Not Available Start: 03-10-2024 End: 03-10-2024 ambulatory ANA CORONADO Not Available Start: 03-05-2024 End: 03-05-2024 ambulatory Andrew Eid Facility:[facility] Start: 03-05-2024 End: 03-05-2024 Pain Management Andrew Eid [facility] Start: 02-27-2024 End: 02-27-2024 ambulatory JOEL ALSTON [facility] Start: 02-26-2024 End: 02-26-2024 ambulatory KURT Talbot [facility] Start: 02-26-2024 Encounter for other preprocedural examination [facility] Start: 02-21-2024 End: 02-21-2024 ambulatory FR[facility] LEVINE Not Available Start: 02-18-2024 End: 02-18-2024 ambulatory CATY MALHOTRA Not Available Start: 02-06-2024 End: 02-06-2024 ambulatory KAYLAH T IVONNE Not Available Start: 02-04-2024 End: 02-04-2024 ambulatory ANDRIA CARTER Not Available Start: 01-31-2024 End: 02-01-2024 Emergency department patient visit KAMILLE JACKSON [facility] Start: 01-30-2024 End: 01-30-2024 ambulatory XXXX NONE Facility:[facility] Start: 01-30-2024 End: 01-30-2024 Patient encounter procedure En Carmen [facility] Start: 01-24-2024 End: 01-24-2024 ambulatory CATY MALHOTRA Not Available Start: 01-23-2024 End: 01-23-2024 ambulatory [facility] Start: 01-21-2024 End: 01-21-2024 ambulatory CATY MALHOTRA Not Available Start: 01-20-2024 End: 01-20-2024 ambulatory [facility] Start: 01-20-2024 End: 01-20-2024 ambulatory NURIA SANCHEZ Not Available Start: 01-17-2024 End: 01-17-2024 ambulatory ROBERT Santiago [facility] Start: 01-16-2024 End: 01-16-2024 ambulatory KAYLAH CORONADO Not Available Start: 01-15-2024 End: 01-15-2024 ambulatory PA-C Cady Alva Facility:[facility] Start: 01-15-2024 End: 01-15-2024 Pain Management Cady Alva [facility] Start: 01-01-2024 End: 01-01-2024 ambulatory Cady Alva Facility:[facility] Start: 01-01-2024 End: 01-01-2024 Pain Management Cady Alva [facility] Start: 12-31-2023 End: 12-31-2023 ambulatory POLLY MARIANO Facility:[facility] Start: 12-31-2023 End: 12-31-2023 Patient encounter procedure POLLY MARIANO [facility] Start: 12-26-2023 End: 12-26-2023 ambulatory MARTIN ARANGO Not Available Start: 12-18-2023 End: 12-18-2023 ambulatory [facility] Start: 12-13-2023 End: 12-13-2023 ambulatory JOEL ALSTON [facility] Start: 12-12-2023 End: 12-12-2023 ambulatory MARTIN ARANGO Not Available Start: 12-11-2023 End: 12-11-2023 ambulatory DO Andrew Eid Facility:[facility] Start: 12-11-2023 End: 12-11-2023 Pain Management Andrew Eid [facility] Start: 11-21-2023 Refill Robert augustin DO Work Phone: [facility] Start: 11-21-2023 End: 11-21-2023 ambulatory MARTIN ARANGO Not Available Start: 11-20-2023 End: 11-20-2023 ambulatory NURIA SANCHEZ Not Available Start: 11-06-2023 End: 11-06-2023 ambulatory Cady Artie Facility:[facility] Start: 11-06-2023 End: 11-06-2023 Pain Management Cady Alva [facility] Start: 11-04-2023 Refill Robert Worthy ng DO Work Phone: [facility] Start: 11-01-2023 Orders Only Fiona Rockwell NURSE [employer] Work Phone: [facility] Start: 10-31-2023 End: 10-31-2023 ambulatory MARTIN ARANGO Not Available Start: 10-30-2023 Refill Simi Petty [facility] Comment on above: Anxiety state; Type 2 diabetes mellitus without complication, without long-term current use of insulin ([facility]); Type 2 diabetes mellitus with diabetic mononeuropathy, without long-term current use of insulin ([facility]) Start: 10-24-2023 End: 10-24-2023 ambulatory MARTIN ARANGO Not Available Start: 10-17-2023 End: 10-17-2023 ambulatory MARTIN ARANGO Not Available Start: 10-03-2023 End: 10-03-2023 ambulatory ROBERTRAFIA CARMENLAURIE [facility] Start: 10-03-2023 End: 10-03-2023 Office outpatient visit 15 minutes Robert Giron DO Work Phone: [facility] - [facility] Comment on above: Pre-op evaluation (P rimary Dx); Hallux valgus of right foot; Essential hypertension; Diabetic peripheral neuropathy (CMS-HCC) Start: 10-03-2023 End: 10-03-2023 Preprocedural examination done Robert Giron DO Work Phone: [facility] Work Phone: Start: 09-27-2023 Telephone encounter [...] ARANGO Not Available Start: 09-26-2023 Refill Robert augustin DO Work Phone: [facility] Start: 09-20-2023 Refill Nuria moreira MD Work Phone: [facility] Comment on above: Chronic bilateral lo w back pain with bilateral sciatica; Diabetic peripheral neuropathy (CMS/HCC); Lumbar radiculopathy Start: 09-19-2023 End: 09-19-2023 ambulatory Valarie Conley Other [employer] Other Start: 09-19-2023 Telephone encounter Valarie Javier [facility] Start: 09-17-2023 End: 09-17-2023 ambulatory POLLY MARIANO Facility:[facility] Start: 09-17-2023 End: 09-17-2023 Patient encounter procedure POLLY MARIANO [facility] Start: 09-16-2023 End: 09-19-2023 ambulatory ROBERT GIRON [facility] Start: 09-08-2023 Refill Robert augustin DO Work Phone: [facility] Start: 09-02-2023 Orders Only Robert augustin DO Work Phone: [facility] - [facility] Comment on above: Anxiety state Start: 08-28-2023 End: 08-28-2023 ambulatory NURIA SANCHEZ Not Available Start: 08-27-2023 End: 08-27-2023 ambulatory Valarie Javier Other [employer] Other Start: 08-27-2023 Office outpatient vi sit 25 minutes Valarie Javier [facility] Start: 08-23-2023 Orders Only Robert Worthy ng DO Work Phone: [facility] Comment on above: 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, sciatica laterality unspecified Start: 08-20-2023 End: 08-20-2023 ambulatory ANDRIA CARTER Not Available Start: 08-16-2023 Refill Robert augustin DO Work Phone: [facility] Comment on above: Oral thrush Start: 08-09-2023 End: 08-09-2023 ambulatory FRENCH LEVINE Not Available Start: 08-08-2023 End: 08-08-2023 ambulatory MARTIN ARANGO Not Available Start: 08-06-2023 End: 08-06-2023 ambulatory ИВАН HARMAN Not Available Start: 08-05-2023 End: 08-06-2023 Emergency department patient visit PHIL [facility] Start: 08-01-2023 End: 08-01-2023 ambulatory ИВАН HARMAN Not Available Start: 07-25-2023 End: 07-25-2023 ambulatory XXXX NONE Facility:[facility] Start: 07-25-2023 End: 07-25-2023 Patient encounter procedure Elliott SOLIS [facility] Start: 07-22-2023 End: 07-22-2023 ambulatory RITCHIE Coto MARINADENISE Not Available Start: 07-18-2023 End: 07-18-2023 ambulatory ИВАН HARMAN Not Available Start: 07-08-2023 End: 07-08-2023 ambulatory ROSHAN HOLLOWAY Not Available Start: 07-05-2023 End: 07-05-2023 Patient encounter procedure Cady CALIX [facility] Start: 07-05-2023 End: 07-05-2023 ambulatory XXXX NONE Facility:[facility] Start: 07-04-2023 End: 07-04-2023 ambulatory MARTIN A CONCHITA Not Available Start: 06-24-2023 End: 06-25-[address] [facility] Start: 06-14-2023 End: 06-14-2023 ambulatory ZINA Jtet Facility:[facility] Start: 06-14-2023 End: 06-14-2023 Patient encounter procedure Cady CALIX [facility] Start: 05-22-2023 End: 05-22-2023 ambulatory Inessa Grajeda Facility:[facility] Start: 05-22-2023 End: 05-22-2023 Patient encounter procedure Inessa Grajeda [facility] Start: 05-20-2023 End: 05-20-2023 ambulatory XXXX NONE Facility:[facility] Start: 05-20-2023 End: 05-20-2023 Patient encounter procedure Cady CALIX [facility] Start: 05-16-2023 End: 05-16-2023 ambulatory XXXX NONE Facility:[facility] Start: 04-04-2023 End: 04-04-2023 ambulatory Valarie Javier Other [employer] Other Start: 04-04-2023 Telephone encounter Valarie Javier [facility] Start: 04-03-2023 End: 04-03-2023 ambulatory DO Robert Furlong Work Phone: [facility] Work Phone: Start: 04-03-2023 End: 04-03-2023 Patient encounter procedure DO Robert Furradhang Work Phone: [facility] [address] Work Phone: Start: 02-26-2023 End: 02-26-2023 ambulatory Valarie Javier Other [employer] Other Start: 02-26-2023 Office outpatient vi sit 25 minutes Valarie Javier [facility] Start: 01-17-2023 End: 01-17-2023 Patient encounter procedure Zulema CRAMER [facility] Start: 12-22-2022 End: 01-16-[address] DOCTOR GALLO Facility:[facility] Start: 12-21-2022 End: 12-22-[address] DOCTOR GALLO Facility:[facility] Start: 11-29-2022 End: 11-29-[address] ROBERT GIRON Facility:[facility] Start: 11-26-2022 End: 11-26-[address] ROBERT GIRON Facility:[facility] Start: 11-21-2022 End: 11-21-2022 Admission to same day surgery center Martin Arango [facility] Start: 10-30-2022 End: 10-30-2022 Patient encounter procedure Elliott Solis [facility] Start: 10-29-2022 End: 10-29-2022 Patient encounter procedure Inessa Grajeda [facility] Start: 10-20-2022 End: 10-20-2022 Emergency department patient visit Santos Landry [facility] Start: 10-12-2022 End: 10-12-2022 Emergency department patient visit Santos Landry [facility] Start: 10-02-2022 End: 10-02-2022 Patient encounter procedure Inessa Grajeda [facility] Start: 09-14-2022 End: 11-01-2022 Pre-admission assessment Poole BELA [facility] Start: 09-10-2022 End: 09-11-[address] DAVID VILLALOBOS . Facility: Start: 09-06-2022 End: 09-06-2022 Patient encounter procedure Poole BELA [facility] Start: 09-04-2022 End: 09-04-2022 ambulatory Valarie Javier Other [facility] Other Start: 09-04-2022 Telephone encounter Valarie Javier [facility] Start: 08-10-2022 ambulatory ELIUD JAJA Facility :[facility] Start: 08-06-2022 End: 08-07-[address] DAVID VILLALOBOS . Facility:[facility] Start: 07-05-2022 End: 07-05-2022 ambulatory Valarie Javier Other [place] [employer] Other Start: 07-05-2022 Office outpatient vi sit 25 minutes Valarie Javier [facility] Start: 07-04-2022 End: 07-05-2022 ambulatory VALARIE JAVIER Facility:[facility] Start: 07-03-2022 End: 07-03-[address] SOLO CHA . Facility:[facility] Start: 06-26-2022 End: 11-28-2022 Recurring Zulema CRAMER [facility] Start: 06-08-2022 End: 06-09-[address] DOCTOR GALLO Facility:[facility] Start: 05-15-2022 End: 05-15-2022 Patient encounter procedure Cady CALIX [facility] Start: 05-09-2022 End: 09-09-2022 Recurring Zulema CRAMER [facility] Start: 05-09-2022 End: 06-19-2022 Pre-admission assessment Zulema CRAMER [facility] Start: 04-30-2022 End: 05-01-[address] ROBERT GIRON Facility:[facility] Start: 04-09-2022 End: 05-02-2022 Pre-admission assessment Donaldo PEARSON [facility] Start: 04-06-2022 End: 04-07-2022 ambulatory ELIUD JAJA Facility:[facility] Start: 04-01-2022 End: 04-01-2022 ambulatory JAMAR SRIVASTAVA . Facility:[facility] Start: 03-28-2022 End: 03-29-[address] DOCTOR GALLO Facility:[facility] Start: 03-20-2022 End: 03-20-2022 Patient encounter procedure Elliott Grewal Will [facility] Start: 03-13-2022 End: 03-13-2022 ambulatory JAMAR SRIVASTAVA . Facility:[facility] Start: 03-06-2022 End: 09-07-2022 Pre-admission assessment Elliott J Will [facility] Start: 03-06-2022 End: 03-06-2022 Patient encounter procedure Cady CALIX [facility] Start: 02-08-2022 End: 06-20-2022 Recurring Poole SALAM [facility] Start: 02-08-2022 End: 02-09-2022 Pre-admission assessment Poole SALAM [facility] Start: 02-01-2022 End: 02-01-2022 Patient encounter procedure Poole SALAM [facility] Start: 01-11-2022 End: 05-02-2022 Recurring Poole SALAM [facility] Start: 01-11-2022 End: 01-11-2022 Patient encounter procedure Poole SALAM [facility] Start: 12-20-2021 End: 03-22-2022 [facility] Start: 12-11-2021 End: 12-11-2021 Patient encounter procedure Donaldo PEARSON [facility] Start: 11-21-2021 End: 11-21-2021 Patient encounter procedure Inessa Grajeda [facility] Start: 10-12-2021 End: 01-30-2022 Recurring Martin Arango [facility] Start: 04-19-2021 End: 04-19-2021 Subsequent hospital visit by physician Joann Angela Work Phone: Radiology Comment on above: Pain [R52] Right elbow pain [M2 5.521] Procedures Date Procedure Procedure Detail Performing Clinician Start: 05-04-2024 Cyclic citrullinated peptide antibody ROBERT GIRON Comment on above: Result Comment: Interpretation-------- <3 Negative >=3 Positive Performed By: #### C RT #### [facility] ([id number]) [address] [place] [address], [address] [place] [address] Start: 04-30-2024 Adult depression screening assessment Leonor Kunz RN TRIAGE Start: 04-08-2024 History of decompression of median nerve History of carpal tunnel surgery Leonor Kunz RN TRIAGE Start: 03-31-2024 CT of lungs DO Robert Giron Work Phone: Start: 12-13-2023 Follow-up visit Follow-up JOEL ALSTON Start: 12-11-2023 Epidural injection of lumbar spine using fluoroscopic guidance Cady Alva Comment on above: L4-L5 no relief, made worse Start: 10-03-2023 Adult depression screening assessment Robert Giron DO Work Phone: Start: 09-27-2023 Mammography Robert Giron DO Work Phone: Start: 06-20-2023 Adult depression screening assessment Robert Giron DO Work Phone: Start: 04-03-2023 CT of lungs DO Robert Giron Work Phone: Start: 01-21-2023 Colonoscopy Robert Giron DO Work Phone: Start: 01-17-2023 Colonoscopy Amaris Huynh MA Start: 01-17-2023 Colonoscopy Poole [employer] Start: 11-21-2022 Hammer toe (disorder) Martin Arango [...] Start: 05-16-2021 Urodynamic studies Inessa Grajeda Start: 04-19-2021 End: 04-19-2021 Radex shoulder complete minimum 2 views Randi Farrell DO Work Phone: Start: 03-14-2020 Colonoscopy Xr 1 Work Phone: Start: 03-14-2020 Colonoscopy Inessa Grajeda Start: 03-03-2020 Catheterization of left heart Inessa koehler Comment on above: diagnostic Start: 10-22-2018 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 Inessa Grajeda Comment on above: EXCISION OF NEUROMA LEFT FOOT Start: 10-22-2018 Removal of toenail Inessa Grajeda Comment on above: RIGHT GREAT AND FIFTH DIGIT PERMANENT NA [place] AVULSION Start: 05-07-2018 Decompression of tarsal tunnel Inessa lanejuan jose Comment on above: left Start: 02-15-2016 Right [...] Comment on above: x 2 Esophagogastroduodenoscopy B dejah Grajeda Esophagogastroduodenoscopy M [facility] [place] [employer] Comment on above: Antral erosions Excision of ganglion cyst Be Nicci Extracorporeal shock wave lithotripsy of calculus of kidney Inessa Grajeda History of decompres anna of median nerve History of carpal tunnel surgery DO Robert Giron Work Phone: Hysterectomy Inessarm Grajeda ingrown toenail removal 10 M [employer] Comment on above: x3 ingrown toenail removal 11 M [employer] Comment on above: x3 ingrown toenail removal 12 A [employer] Comment on above: x3 ingrown toenail removal 9 Be [employer] Comment on above: x3 Ligation of [...] Activity Detail Author Start: 01-21-2033 Screening for malign ant neoplasm of colon Colonoscopy [facility] [email or web address] [facility] Start: 01-17-2033 Screening for malign ant neoplasm of colon [facility] Start: 06-05-2025 Tobacco [facility]ening [facility] Start: 05-20-2025 Adult BMI Screening Adult BMI Screen ing [facility] Start: 05-20-2025 Tobacco Screening Tobacco Screening [facility] Start: 05-18-2025 Adult BMI Screening Adult BMI Screen ing [facility] Start: 05-18-2025 Tobacco Screening Tobacco Screening [facility] Start: 04-30-2025 Depression Screening Depression Scre ening [facility] Start: 01-05-2025 ambulatory Ambulatory Facility:[facility] Start: 10-03-2024 Adult BMI Screening Adult BMI Screen ing [facility] Start: 10-03-2024 Depression Screening Depression Scre ening [facility] Start: 10-03-2024 Tobacco Screening Tobacco Screening [facility] Start: 09-27-2024 Screening for malign ant neoplasm of breast Mammogram [facility] Start: 08-05-2024 Adult BMI Screening Adult BMI Screen ing [facility] Start: 08-05-2024 Tobacco Screening Tobacco Screening [facility] Start: 07-30-2024 End: 07-30-2024 Patient encounter procedure 07/30/2024 1:30 PM EST Office Visit [facility] Medicine [address] [place] [address] Robert Giron, [address], [facility] [place] [address] [facility] Start: 07-27-2024 End: 07-27-2024 Patient encounter procedure [facility] Rheumat[facility] Start: 07-10-2024 Adult BMI Follow Up Plan Adult BMI Follow Up Plan [facility] Start: 07-08-2024 Diabetic foot examination Diabetic Foot Exam [facility] Start: 07-08-2024 End: 07-08-2024 Patient encounter procedure 07/08/2024 2:00 PM EST Office Visit [facility] [address] [place] [phone] Alexsandra Smart, PA-C [address] [place] [address] [facility] Start: 07-07-2024 End: 07-07-2024 Patient encounter procedure 07/07/2024 1:00 PM EST Office Visit [facility] [address] [place] [id number] David Villalobos DO [address] [place] [address] [facility] Start: 06-20-2024 Depression Screening Depression [facility] Start: 06-19-2024 End: 06-19-2024 Admission to same day surgery center 06/19/2024 8:51 AM EDT - 06/19/2024 8:58 AM EDT Surgery [facility] - Pain Procedures [address] [place] [phone] Sami Maharaj MD [address] [place], [place] [id number] INJECTION BLOCK NERVE KNEE Left Genicular NB [82322 (CPT )] [facility] Comment on above: INJECTION BLOCK NERV E KNEE Left Genicular NB [88572 (CPT )] Start: 06-19-2024 End: 06-19-2024 Injection aa&/strd genicular nrv branches w/img INJECTION BLOCK NERVE KNEE Primary osteoarthritis of left knee Chronic pain of left knee 06/19/2024 8:51 AM EDT [facility] Start: 06-19-2024 Subsequent hospital visit by physician 06/19/2024 8:51 AM EDT Hospital Encounter [facility] [address] [place] [phone] Sami Maharaj MD [address] [place], [place] [id number] [facility] Start: 06-11-2024 End: 06-11-2024 Patient encounter procedure 06/11/2024 3:30 PM EDT Office Visit Izabel Bravo [facility] - [facility] Oncology [address] [place] [phone] Brandon Ornelas MD [address] [facility] [address] [place], [place] [id number] Izabel Bravo [facility] Start: 05-20-2024 End: 05-20-2024 Patient encounter procedure 05/20/2024 11:00 AM EDT Office Visit [facility] [address] [place] [phone] Alexsandar Smart PAAnaC [address] [place], [place] [phone] [facility] Start: 04-19-2024 Covid-19 Vaccine ( season) Covid-19 Vaccine ( season) [facility] Start: 04-19-2024 Influenza vaccination P [facility] Start: 10-28-2023 End: 10-28-2023 Patient encounter procedure 10/28/2023 3:20 PM EDT Office Visit [facility] [address] [facility] [address] [place] [address] Nuria Sanchez MD [address] [facility] [address] [place] [id number] [facility] Start: 10-23-2023 Urine screening for protein Urine Microalbumin [facility] Start: 10-17-2023 End: 10-17-2023 Patient encounter procedure [facility] Start: 10-09-2023 End: 10-09-2023 Patient encounter procedure 10/09/2023 8:30 AM EST Procedure Visit [facility] Martin Mcgrath, SALLIE [address] [address] [facility] Start: 10-03-2023 End: 10-03-2023 Patient encounter procedure 10/03/2023 3:40 PM EST Office Visit [facility] [address] [place] [address] Robert Giron, DO [address], [place] [address] [facility] - Family [facility] Start: 09-26-2023 End: 09-26-2023 Patient encounter procedure 09/26/2023 3:10 PM EST Office Visit [facility] [address] [facility] [address] [place] [address] Martin Arango DPM [address] [address] [facility] Start: 09-16-2023 End: 09-16-2023 ambulatory 09/16/2023 8:30 AM EST Monitor [facility] [address] [facility] [address] [place] [address] [facility] Start: 09-10-2023 Screening for malign ant neoplasm of breast Mammogram [facility] Start: 09-27-2021 Diabetes Screening Diabetes Screenin g [facility] Start: 03-14-2021 Screening for malign ant neoplasm of colon [facility] Start: 2020 Administration of varicella zoster vaccine Zoster (Shingles) Vaccine (1 of 2) [facility] Start: 2020 Shingrix Vaccine (1 of 2) Shingrix Vaccine (1 of 2) [facility] Start: 2015 Lipid panel Lipid Screening [facility] Start: 2015 Screening for malign ant neoplasm of colon [facility] Start: 2010 Screening for malign ant neoplasm of breast Mammogram Screening [facility] Start: 2000 Screening for malign ant neoplasm of cervix [facility] Start: 1991 Screening for malign ant neoplasm of cervix [facility] Start: 1989 DTaP,Tdap and Td Vaccines (1 - Tdap) DTaP,Tdap and Td Vaccines (1 - Tdap) [facility] Start: 1989 Hepatitis B Vaccine (1 of 3 - 19+ 3-dose series) Hepatitis B Vaccine (1 of 3 - 19+ 3-dose series) [facility] [facility] Start: 1989 Urine microalbumin profile DTaP,Tdap,Td Vaccine (1 - Tdap) [facility] Start: 1988 Anxiety Screening Anxiety Screening [facility] Start: 1988 Depression Screening Depression Scre ening [facility] Start: 1988 Hepatitis C screening Hepatitis C Sc kateryna [facility] Start: 1988 HIV screening HIV Screening [facility] Start: 1976 Pneumococcal vaccination Pneum ococcal Vaccine (1 of 2 - PCV) [facility] Start: 1970 Glaucoma screening Diabetic Op hthalmology Exam [facility] Start: 1970 Screening for malign ant neoplasm of colon [facility] Start: 1970 Tobacco Counseling Tobacco Counselin g [facility] Injection aa&/strd genicular nrv branches w/img INJECTION BLOCK NERVE KNEE Primary osteoarthritis of left knee Chronic pain of left knee [facility] [facility] Immunizations Immunization Date Immunization Notes Care Provider Fa anjana 03-09-2024 zoster vaccine recombinant Leonor Kunz RN TRIAGE [facility] 06-24-2023 Covid-19,mrna, Lnp-s , Pf, 50mcg/0.5ml 12+ Robertrafia Carmencadence DO Work Phone: [facility] 06-24-2023 influenza virus vaccine, unspecified formulation POLLY MARIANO [facility] 04-15-2020 influenza virus vaccine, unspecified formulation Cady CALIX [facility] 06-02-2019 hepatitis A vaccine, adult dosage Cady CALIX [facility] 11-21-2018 hepatitis A vaccine, adult dosage Cady CALIX [facility] NEGATED: Highlighted row has not occurred!04-29-2023 influenza virus vaccine, unspecified formulation Cady CALIX [facility] NEGATED: Highlighted row has not occurred!10-29-2022 influenza virus vaccine, unspecified formulation Inessa Grajeda [facility] NEGATED: Highlighted row has not occurred!09-14-2022 influenza virus vaccine, unspecified formulation Inessa Grajeda [facility] NEGATED: Highlighted row has not occurred!05-09-2022 influenza virus vaccine, unspecified formulation Cady CALIX [facility] NEGATED: Highlighted row has not occurred!12-11-2021 influenza virus vaccine, unspecified formulation Donaldo PEARSON [facility] NEGATED: Highlighted row has not occurred!12-11-2021 SARS-CoV-2 (COVID-19) Ad26 vaccine, recombinant Donaldo PEARSON [facility] NEGATED: Highlighted row has not occurred!11-07-2021 influenza virus vaccine, unspecified formulation Inessa Grajeda [facility] NEGATED: Highlighted row has not occurred!09-04-2021 SARS-CoV-2 (COVID-19) Ad26 vaccine, recombinant Inessa Carmenmetz [facility] Payers Date Payer Category Payer Self-pay [id number] 2023 Medicaid HMO [facility] [id number] 2019 Unknown MMO MMO SUPERMED PPO [id number] 2019-2022 [address] [place] [address] PPO [id number] 2004 Medicaid [id number]. [id number] 1970 Unknown [id number] 2.16.840.1.782418.3.579.2. 593 1970 Unknown [id number] 2.16.840.1.469640.3.579.2. 593 1970 Unknown [id number] 2.16.840.1.393836.3.579.2. 593 1970 Unknown [id number] 2.16.840.1.855213.3.579.2. 593 1970 Unknown [id number] 2.16.840.1.973117.3.579.2. 593 1970 Unknown [id number] 2.16.840.1.514640.3.579.2. 593 1970 Unknown [id number] 2.16.840.1.500551.3.579.2. 593 1970 Unknown [id number] 2.16.840.1.592017.3.579.2. 593 1970 Unknown [id number] 2.16.840.1.929657.3.579.2. 593 1970 Unknown [id number] 2.16.840.1.292531.3.579.2. 593 1970 Unknown [id number] 2.16.840.1.584233.3.579.2. 593 1970 Unknown [id number] 2.16.840.1.411487.3.579.2. 593 1970 Unknown [id number] 2.16.840.1.244798.3.579.2. 593 1970 Unknown [id number] 2.16.840.1.098539.3.579.2. 593 1970 Unknown [id number] 2.16.840.1.378234.3.579.2. 593 1970 Unknown [id number] 2.16.840.1.899122.3.579.2. 176 1970 Unknown [id number] 2.16.840.1.301285.3.579.2. 727 1970 Unknown [id number] 2.16.840.1.641613.3.579.2. 727 1970 Unknown [id number] 2.16.840.1.273443.3.579.2. 727 1970 Unknown [id number] 2.16.840.1.400621.3.579.2. 727 1970 Unknown [id number] 2.16.840.1.138889.3.579.2. 727 1970 Unknown [id number] 2.16.840.1.916710.3.579.2. 727 1970 Unknown [id number] 2.16.840.1.726727.3.579.2. 727 1970 Unknown [id number] 2.16.840.1.837824.3.579.2. 727 1970 Unknown [id number] 2.16.840.1.046907.3.579.2. 72 1970 Unknown [id number] 2.16.840.1.120714.3.579.2. 727 1970 Unknown [id number] 2.16.840.1.606369.3.579.2. 1970 Unknown [id number] 2.16.840.1.894525.3.579.2. 1970 Unknown [id number] 2.16.840.1.499575.3.579.2. 1970 Unknown [id number] 2.16.840.1.418337.3.579.2. 1970 Unknown [id number] 2.16.840.1.785597.3.579.2. 1970 Unknown [id number] 2.16.840.1.925044.3.579.2. 1258 1970 Unknown [id number] 2.16.840.1.613375.3.579.2. 1258 1970 Unknown [id number] 2.16.840.1.484136.3.579.2. 1258 1970 Unknown [id number] 2.16.840.1.147452.3.579.2. 1258 1970 Unknown [id number] 2.16.840.1.502977.3.579.2. 125 1970 Unknown [id number] 2.16.840.1.492859.3.579.2. 1258 1970 Unknown [id number] 2.16.840.1.206633.3.579.2. 9 1970 Unknown [id number] 2.16.840.1.421071.3.579.2. 1258 1970 Unknown [id number] 2.16.840.1.539414.3.579.2. 1258 1970 Unknown [id number] 2.16.840.1.296885.3.579.2. 1258 1970 Unknown [id number] 2.16.840.1.239746.3.579.2. 1258 1970 Unknown [id number] 2.16.840.1.585318.3.579.2. 1258 1970 Unknown [id number] 2.16.840.1.418906.3.579.2. 1258 1970 Unknown [id number] 2.16.840.1.638616.3.579.2. 1258 1970 Unknown [id number] 2.16840.1.711316.3.579.2. 1258 1970 Unknown [id number] 2.840.1.388240.3.579.2. 1258 1970 Unknown [id number] 2.16.840.1.076852.3.579.2. 1258 1970 Unknown [id number] 2.16840.1.288184.3.579.2. 1258 1970 Unknown [id number] 2.16.840.1.002304.3.579.2. 1258 1970 Unknown [id number] 2.840.1.138300.3.579.2. 1258 1970 Unknown [id number] 2.16.840.1.780367.3.579.2. 1258 1970 Unknown [id number] 2.16.840.1.353867.3.579.2. 1258 1970 Unknown [id number] 2.16.840.1.121194.3.579.2. 1258 1970 Unknown [id number] 2.16.840.1.707479.3.579.2. 1258 1970 Unknown [id number] 2.16.840.1.514084.3.579.2. 1259 1970 Unknown [id number] 2.16.840.1.320467.3.579.2. 1258 1970 Unknown [id number] 2.16.840.1.241409.3.579.2. 9 1970 Unknown [id number] 2.16.840.1.487712.3.579.2. 1258 1970 Unknown [id number] 2.16.840.1.924249.3.579.2. 1258 1970 Unknown [id number] 2.16.840.1.808646.3.579.2. 1258 1970 Unknown [id number] 2.16.840.1.422573.3.579.2. 1258 1970 Unknown [id number] 2.16.840.1.548388.3.579.2. 1258 1970 Unknown [id number] 2.16.840.1.394586.3.579.2. 1258 1970 Unknown [id number] 2.16.840.1.966752.3.579.2. 1258 1970 Unknown [id number] 2.16.840.1.373182.3.579.2. 9 1970 Unknown [id number] 2.16.840.1.832924.3.579.2. 1258 1970 Unknown [id number] 2.16.840.1.363076.3.579.2. 125 1970 Unknown [id number] 2.16.840.1.636443.3.579.2. 1258 1970 Unknown [id number] 2.16.840.1.421994.3.579.2. 1258 1970 Unknown [id number] 2.16.840.1.288192.3.579.2. 9 1970 Unknown [id number] 2.16.840.1.076455.3.579.2. 1259 1970 Unknown [id number] 2.16.840.1.355238.3.579.2. 1259 1970 Unknown [id number] 2.16.840.1.401815.3.579.2. 1259 1970 Unknown [id number] 2.16.840.1.412547.3.579.2. 1286 1970 Unknown [id number] 2.16.840.1.948723.3.579.2. 128 1970 Unknown [id number] 2.16.840.1.519431.3.579.2. 1285 1970 Unknown [id number] 2.16.840.1.670989.3.579.2. 1285 1970 Unknown [id number] 2.16840.1.303454.3.579.2. 1285 1970 Unknown [id number] 2.16840.1.356060.3.579.2. 1285 1970 Unknown [id number] 2.16840.1.615449.3.579.2. 1285 1970 Unknown [id number] 2.16.840.1.605612.3.579.2. 1285 1970 Unknown [id number] 2.16840.1.722226.3.579.2. 1285 1970 Unknown [id number] 2.16.840.1.597145.3.579.2. 1285 1970 Unknown [id number] 2.16.840.1.123087.3.579.2. 1285 1970 Unknown [id number] 2.16.840.1.494256.3.579.2. 1285 1970 Unknown [id number] 2.16.840.1.584226.3.579.2. 1285 1970 Unknown [id number] 2.16.840.1.881746.3.579.2. 6 1970 Unknown [id number] 2.16.840.1.285074.3.579.2. 6 1970 Unknown [id number] 2.16.840.1.834993.3.579.2. 1285 1970 Unknown [id number] 2.16.840.1.193606.3.579.2. 1285 1970 Unknown [id number] 2.16.840.1.698831.3.579.2. 1285 1970 Unknown [id number] 2.16.840.1.263407.3.579.2. 1285 1970 Unknown [id number] 2.16.840.1.339043.3.579.2. 1285 1970 Unknown [id number] 2.16.840.1.745099.3.579.2. 1285 1970 Unknown [id number] 2.16.840.1.353876.3.579.2. 1286 1959 Medicaid [id number] 1959 Private Health Insurance [id number] 1959 Unknown [id number] 1959 Unknown [id number] Unknown [id number] 2.16.840.1.537274.3.579.2. 531 Social History Date Type Detail Facility Start: 11-07-2021 End: 01-30-2024 Tobacco smoking status Heavy tobacco smoker (finding) [facility] Comment on above: 1 pack per day smoke r Start: 01-24-2023 End: 07-08-2023 Sex Assigned At Female [facility] Tobacco [facility] Comment on above: 1 ppd smokes 1 ppd. Tobacco smoking status Never [facility] Start: 1970 Sex Assigned At Female F [facility] Tobacco smoking status No Smokin g Status Entered [facility] Start: 01-04-2022 End: 04-15-2023 Tobacco smoking status NHIS Smoker (finding) [facility] Start: 07-08-2023 Tobacco smoking stat us NHIS Ex-smoker [facility] Start: 08-19-1985 End: 04-15-2023 History of tobacco use Cigarette Smoker [facility] Start: 01-24-2023 End: 07-08-2023 Cigarettes smoked current (pack per day) - Reported 0.8 [facility] Start: 07-08-2023 End: 02-26-2024 Tobacco use and exposure Smokeless tobacco non-user [facility] Start: 08-05-2023 End: 06-05-2024 Alcohol intake Ex-drinker (finding) [facility] Has the [employer], or [email or web address] threatened to shut off services in your home in past 12Mo No [facility] Are you now , , , , never or living with a partner? [facility] How often to you hav e a drink containing alcohol? Monthly or less [facility] How many standard drinks containing alcohol do you have on a typical day? 3 or 4 [facility] How often do you hav e 6 or more drinks on 1 occasion? Never [facility] How hard is it for y ou to pay for the very basics like food, housing, medical care, and heating Not very hard [facility] Do you feel stress - tense, restless, nervous, or anxious, or unable to sleep at night because your mind is troubled all the time - these days [OSQ] To some extent [facility] Start: 07-08-2023 Tobacco Comment Smoke 1 PPD x 10 yea rs [facility] Start: 1970 Sex Assigned At Not on file P [facility] Start: 04-15-1988 End: 02-26-2024 Tobacco smoking status NHIS Smokes tobacco daily [facility] History of tobacco use Passive smoker [facility] Start: 02-21-2023 Alcohol Comment caffeine 1-2 c ups per day [facility] Start: 06-30-2020 Alcoholic beverage intake Current non-drinker of alcohol (finding) [facility] Start: 02-28-2015 Tobacco Comment Vaporization a lso. started to smoke at 12 [facility] Start: 03-20-2021 End: 04-19-2021 Exposure to SARS-CoV-2 (event) Not sure [facility] How many standard drinks containing alcohol do you have on a typical day? 1 or 2 [facility] How often do you hav e 6 or more drinks on 1 occasion? Less than monthly [facility] Start: 10-17-2023 Alcohol Comment caffeine intak e: 1-2 cups per day [facility] Start: 03-24-2024 Gender identity Identifies as female gender (finding) [facility] Start: 03-24-2015 Sex Female (finding) [facility] Medical Equipment Procedure Code Equipment Code Equipment Origin al Text Equipment Identifier Dates Phacoemulsification of cataract with intraocular lens implantation Posterior-chamber intraocular lens, pseudophakic ()[id number] FDA Start: 12-14-2021 Phacoemulsification of cataract with intraocular lens implantation Posterior-chamber intraocular lens, pseudophakic ()[id number] FDA Start: 01-04-2022 HAMMERTOE REPAIR Brown DPM, [...] Assessment Result Facility 03-05-2024 Functional Status N/A [facility] 01-30-2024 Functional Status N/A [facility] 01-15-2024 Functional Status N/A [facility] 01-01-2024 Functional Status N/A [facility] 12-31-2023 Functional Status N/A [facility] 11-06-2023 Functional Status N/A [facility] 09-17-2023 Functional Status N/A [facility] 07-25-2023 Functional Status No [facility] 07-05-2023 Functional Status No [facility] 05-20-2023 Functional Status No [facility] 01-17-2023 Functional Status N/A [facility] 10-30-2022 Functional Status No [facility] 10-29-2022 Functional Status N/A [facility] 10-20-2022 Functional Status N/A [facility] 10-12-2022 Functional Status N/A [facility] 10-02-2022 Functional Status N/A [facility] 09-06-2022 Functional Status N/A [facility] 05-15-2022 Functional Status No [facility] 03-06-2022 Functional Status N/A [facility] Clinical Notes 04-19-2021 to 06-08-2024 Telephone Encounter - Eliza Frost - 06/08/2024 10:28 AM EDTTelephone Encounter - Eliza Frost - 06/08/2024 10:28 AM EDTTelephone Encounter - Amaris Huynh MA - 05/28/2024 1:26 PM EDT Note Date & Type Note Facility 06-08-2024 Miscellaneous Notes Pt calls today 06/08 with a compliant of Left knee pain. Pt. Had Left Gen. NB on 06/05/2024 Pt states she got little to no relief from procedure, stating her pain decreased to a 7/10 for about an hour before going back to a 10/10. The pain is constant and patient is not able to bear any weight on it. Pt has tried ice/heat with 0 relief Pt is currently taking 2 tylenol every 8 hours as advised by staff with 0 relief Pt is not able to use any topical treatment due to sensitive skin Please advise documented in this encounter [facility] [email or web address] [facility] 06-08-2024 Telephone encounter Note Pt calls today 06/08 with a compliant of Left knee pain. Pt. Had Left Gen. NB on 06/05/2024 Pt states she got little to no relief from procedure, stating her pain decreased to a 7/10 for about an hour before going back to a 10/10. The pain is constant and patient is not able to bear any weight on it. Pt has tried ice/heat with 0 relief Pt is currently taking 2 tylenol every 8 hours as advised by staff with 0 relief Pt is not able to use any topical treatment due to sensitive skin Please advise [facility] 05-28-2024 Telephone encounter Note Patient calls requesting refill of Ammonium Lactate. (I don't see it in the chart for the Refill ), to [facility]. She says that her feet are really dry and also wants to let you know that her toes still hurt. [facility] 05-28-2024 Miscellaneous Notes Patient calls requesting refill of Ammonium Lactate. (I don't see it in the chart for the Refill ), to [facility]. She says that her feet are really dry and also wants to let you know that her toes still hurt. documented in this encounter [facility] 05-20-2024 History of Presen t illness Narrative [facility] [address] [place] [address] Patient: Keturah Herrera Sex: female : 1970 Age: 53 y.o. PCP: Robert Giron DO 05/20/2024 Keturah Herrera is here for a(n) follow up. Patient was last seen in 2019. Referred to [facility]. Patient is here for left knee pain. Has previously had steroid clinic injections in the past with no help. Has had surgery in right knee and is starting to hurt. Chief Complaint Patient presents with Knee Pain HPI: PT Left Knee February-March 2024 no relief Knee Pain Incident onset: 4 years. The injury mechanism was a twisting injury. The pain is present in the left knee. The pain is at a severity of 8/10. The pain is severe. The pain has been Worsening since onset. Associated symptoms include numbness. She reports no foreign bodies present. The symptoms are aggravated by movement and weight bearing. She has tried ice, heat, immobilization, non-weight bearing, NSAIDs, rest and acetaminophen for the symptoms. The treatment provided no relief. The effect of pain on patient's ADLS: Severe Impairment. Past Medical History: Diagnosis Date Anxiety Anxiety Arthritis Asthma Bipolar disorder ([facility]) Carpal tunnel syndrome Chronic kidney disease stage 3 COPD (chronic obstructive pulmonary disease) ([facility]) Depression Fibromyalgia GERD (gastroesophageal reflux disease) Heart abnormality 01/24/2020 leaky valve going for testing Hyperlipidemia Hypertension Mitral valve prolapse Myocardial infarction ([facility]) Osteoarthritis Osteoporosis Sleep apnea no cpap Spinal stenosis Vertigo Visual impairment glasses Past Surgical History: Procedure Laterality Date APPENDECTOMY ARTHROSCOPY WITH LATERAL MENISCECTOMY KNEE Right 06/06/2022 Performed by Kurt Chapman MD at [facility] BREAST FIBROADENOMA SURGERY CARPAL TUNNEL RELEASE Bilateral CATARACT EXTRACTION Bilateral CHONDROPLASTY, SYNOVECTOMY Right 06/06/2022 Performed by Kurt Chapman MD at [facility] COLONOSCOPY 2020 in [place] TO[place] Right EPIDURAL BLOCK INJECTION HYSTERECTOMY one ovary remains INJECTION MEDIAL BRANCH NERVE BLOCK: bilat L45 51 Bilateral 09/25/2019 Performed by Sami Maharaj MD at [facility] INJECTION SI JOINT Bilateral SI Joint Bilateral 03/25/2020 Performed by Sami Maharaj MD at [facility] LAPAROSCOPIC CHOLECYSTECTOMY N/A 03/15/2017 Performed by Karlos Quinones DO at [facility] NEUROMA SURGERY PLANTAR FASCIA RELEASE Bilateral SINUS SURGERY x2 TARSAL TUNNEL RELEASE Bilateral TOE SURGERY toenails removed ULNAR TUNNEL RELEASE Bilateral Allergies Allergen Reactions Codeine Hives Fish Derived Hives Atomoxetine Hcl GI Disturbance and Palpitations palpitations Bupropion Hcl GI Disturbance and Palpitations palpitations Doxycycline GI Disturbance and Palpitations palpitations Oxcarbazepine GI Disturbance and Palpitations palpitations Ziprasidone Hcl Palpitations palpitations Amitriptyline Abnormal Behavior hallucinate Amoxicillin Vomiting Bactrim [Sulfamethoxazole-Trimethoprim] Hives and Vomiting Cymbalta [Duloxetine] Depakote [Divalproex] Dexamethasone (Pf) Eicosapentaenoic Acid Ketorolac Other reaction(s): Other: See Comments Abdominal pain Methocarbamol Other (See Comments) Milnacipran Other (See Comments) Mobic [Meloxicam] Moxifloxacin Nausea Neurontin [Gabapentin] Nitrofurantoin Monohyd/M-Cryst Other (See Comments) Paroxetine Hives Penicillins GI Disturbance, Hives, Other (See Comments) and Vomiting Requip [Ropinirole] Shellfish Derived Sodium Chloride-Aloe Vera Facial numbness/tongue numbness Sulfamethoxazole Other (See Comments) Valproic Acid Other Reaction(s): Alopecia, Unknown Verapamil Hcl Adhesive Tape-Silicones Other (See Comments) and Rash rash Amoxicillin-Pot Clavulanate GI Disturbance Fish Containing Products Rash Fluticasone Propion-Salmeterol Itching and Palpitations Ibuprofen GI Disturbance Methadone GI Disturbance Other reaction(s): Vomiting Pregabalin Other (See Comments) and Palpitations hallucinate Shellfish Containing Products Rash Topiramate GI Disturbance and Other (See Comments) Verapamil GI Disturbance Ziprasidone Palpitations and Other (See Comments) Family History Problem Relation Age of Onset Cancer Mother ovarian Cancer Brother 55 in whole body when they found it Sudden Brother No Known Problems Son was 23 months old and hit by garbage truck Anesthesia problems Neg Hx Social History Socioeconomic History Marital status: Legally Spouse name: Not on file Number of children: Not on file Years of education: Not on file Highest education level: Not on file Occupational History Not on file Tobacco Use Smoking status: Every Day Average packs/day: 0.8 packs/day for 35.0 years (26.3 ttl pk-yrs) Types: Cigarettes Start date: 04/15/1988 Last attempt to quit: 04/15/2023 Years since quittin.0 Smokeless tobacco: Never Vaping Use Vaping status: Former Substances: Nicotine Devices: Disposable Substance and Sexual Activity Alcohol use: Not Currently Drug use: Yes Types: Medical Marijuana Sexual activity: Not Currently Partners: Male Other Topics Concern Not on file Social History Narrative Not on file Social Determinants of Health Financial Resource Strain: Low Risk (07/07/2023) Overall Financial Resource Strain (CARDIA) Difficulty of Paying Living Expenses: Not very hard Food Insecurity: No Food Insecurity (05/20/2024) Hunger Screening Food Insecurity - Worry: Never True Food Insecurity - Inability: Never True Transportation Needs: Unmet Transportation Needs (07/07/2023) PRAPARE - Transportation Lack of Transportation (Medical): Yes Lack of Transportation (Non-Medical): Yes Physical Activity: Insufficiently Active (01/24/2023) Exercise Vital Sign Days of Exercise per Week: 4 days Minutes of Exercise per Session: 10 min Stress: Stress Concern Present (01/24/2023) [place] [employer] Occupational Health - Occupational Stress Questionnaire Feeling of Stress : To some extent Social Connections: Socially Isolated (01/24/2023) Social Connection and Isolation Panel [NHANES] Frequency of Communication with Friends and Family: More than three times a week Frequency of Social Gatherings with Friends and Family: More than three times a week Attends Voodoo Services: Never Active Member of Clubs or Organizations: No Attends Club or Organization Meetings: Never Marital Status: Interpersonal Safety: Unknown (10/10/2023) Received from [facility] Safety & Environment Fear of Current or Ex-Partner: Not on file Emotionally Abused: Not on file Physically Abused: Not on file Sexually Abused: Not on file Physically or Sexually Abused: Not on file Housing Instability: Low Risk (07/07/2023) Housing Instability Housing Instability: No Review of Systems Constitutional: Negative. HENT: Migraine headaches Eyes: Negative. Respiratory: Negative. Cardiovascular: Positive for leg swelling. Gastrointestinal: Negative. Endocrine: Negative. Genitourinary: Negative. Musculoskeletal: Positive for back pain, gait problem, myalgias and neck pain. Skin: Negative. Allergic/Immunologic: Negative. Neurological: Positive for numbness. Hematological: Negative. Psychiatric/Behavioral: Negative for hallucinations and suicidal ideas. Vital Signs: BP 139/82 Pulse 75 Ht 162.6 cm (5' 4 ) Wt 75.7 kg (166 lb 12.8 oz) BMI 28.63 kg/m Physical Exam: GENERAL - Healthy patient that appears stated age. HEENT - Normocephalic / Atraumatic, Extraoccular movements intact, trachea midline, thyroid within normal limits. CV - pulse regular, Warm extremities with appropriate color of nailbeds. RESP - No obvious wheezing, No Shortness of Breath, No overexertion response to exam maneuvers. COORDINATION - remains intact. PSYCH - Alert and Oriented x4, Attentive and appropriate, constitutionally normal, displays normal mood and affect per situation, answered questions appropriately during examination, demonstrated appropriate attention during discussion, demonstrated appropriate cognitive reasoning and understanding of the medical condition by asking appropriate questions regarding the diagnosis and risks/benefits/alternatives of treatment modalities. No obvious deficits in memory, reasoning, or intellect. Distal Joint Exam - Lower Extremity: SKIN - No rashes or bruising in the area of the patient s pain. EXTREMITIES - Lower extremities are warm, with minimal edema and palpable pulses. Strength is 5/5 all muscle groups of the bilateral lower extremities. There is no obvious atrophy, fasciculations, or spasms. There are no notable sensory deficits in the overlying dermatomal distributions. Gait remains normal. Examination of the Left knee reveals tenderness to palpation over the superior, inferior, lateral, and medial aspect of the knee. Some swelling is noted without significant erythema. Pain is elicited with flexion and extension of the knee both actively and passively. Some grinding is noted with these motions. There is no notable ligamental laxity or instability and drawer test is negative. Assessment/Treatment Plan: Keturah was seen today for knee pain. Diagnoses and all orders for this visit: Primary osteoarthritis of left knee - Case request operating room: INJECTION BLOCK NERVE KNEE Left Genicular NB Chronic pain of left knee - Case request operating room: INJECTION BLOCK NERVE KNEE Left Genicular NB Left Genicular Nerve Block - under fluoroscopy It is hopeful that the described procedure will provide symptomatic pain relief. It is felt to be medically necessary noting that the patient has tried and failed more conservative modalities of therapy and this is the next most appropriate step. The procedure was described in detail to the patient as well as the potential benefits of pain reduction alongside risks of the procedure and alternatives. Risks were described as including, but not limited to bleeding, infection, nerve damage, spinal cord injury, paralysis, stroke, dural puncture headache, and medication reaction. The patient expressed understanding regarding the risks and benefits and wishes to proceed. Diagnostic Genicular Nerve injections should provide information to confirm that the noted knee arthropathy and associated genicular neuritis is the most significant pain generator. If this provides significant but only temporary pain relief, the patient may in the future be a candidate for radiofrequency denervation of the Genicular Nerves to provide pain relief for approximately 1 year. Follow up 2 weeks after procedure. DISCUSSION: Treatment options discussed with patient and all questions answered to patient's satisfaction. Discussed the rules and regulations surrounding prescription of opioids and compliance at length. Failure to follow the rules and regulation will result in tapering and discontinuation of medications if applicable. Prescribed medication that requires intensive monitoring for toxicity: We do not currently prescribe any controlled substance from this practice. Treatment plans discussed but not opted for at this time: repeat if needed. Patient would like to proceed with the current outlined treatment plan before moving forward with any other options. Chronic conditions not treated during this visit that affected my overall medical decision making: Comorbidity- Diabetes The patient has a history of diabetes mellitus currently managed with medications. This will need to be considered prior to any procedure that would require the injection of steroid in that the patient may experience a transient increase in glucose as a result. Additional consideration will need to be given to timing the procedure early in the morning in that the patient will need to be fasting prior to the administration of anesthesia. Every effort will be made to perform the procedure as a 1st case due to this condition. And the patient will be instructed to hold their diabetic medications on that morning. If necessary, a blood glucose test can also be performed that morning. The risks/ benefits/ and alternatives will be weighed and explained to the patient prior to any procedure. Comorbidity- Obesity The patient does have a comorbid condition of obesity. This will be taken into account in that obesity will contribute to certain pain conditions. It can contribute to pain from degenerative disc disease as well as osteoarthritis of the joints. Many neuropathic symptoms are also amplified due to axial spine loading. Special benefits will also need to be given to procedures. Many procedures are technically more difficult in the light of severe obesity. I will also consider the possibility of undiagnosed obstructive sleep apnea (which often accompanies obesity) when prescribing any narcotic medications. I will weigh the risks and benefits and fully discuss them with the patient for these reasons. The spine model was demonstrated and knee MRI was reviewed and used to explain the condition. OARRS: Reviewed. Follow up 2 weeks after procedure. Scribe Statement: Scribed for and in the presence of ALEXSANDRA SMART PA-C by Poly Kaminski RN. Provider Statement: I, ALEXSANDRA SMART PA-C, personally performed the services described in the documentation, as scribed by Poly Kaminski RN in my presence, and it is both accurate and complete. Poly Kaminski RN 05/20/24 1138 Poly Kaminski RN 05/20/24 1139 Alexsandra Smart PA-C 05/20/24 1159 documented in this encounter [facility] 05-20-2024 Instructions Poly Kaminski RN - 05/20/2024 11:00 AM EDT Epidural Steroid Injection (JAELYN) / Nerve Root Injection / Nerve Block These procedure(s) involve the injection of a steroid and anesthetic into the epidural space or the nerve sheath that is both diagnostic and potentially therapeutic for alleviating discomfort of the legs and arms secondary to compression of the respective nerves due to bulging discs, bone spurs and other potential causes. Steroids are potent anti-inflammatory drugs that act to decrease the swollen and inflamed nerves thus relieving your clinical symptoms. How Long Will This Procedure Last? The extent and duration of pain relief may depend on the amount of inflammation and how many areas are involved. Other coexisting factors may be responsible for your pain. You and your physician will discuss expected results of procedure(s). After Your Injection You may experience soreness and tenderness at the area of treatment. This pain may not occur until later today after the numbing medicine wears off. The steroid can take 3-5 days to work and provide noticeable improvement. Activity You may feel temporary numbness, weakness or tingling: In the neck, arm, or fingertips (if your procedure was done in your neck) In the legs (if your procedure was done in your lower back) These symptoms are normal, and should subside within 3-4 hours. In that time, be careful to avoid falls. As a safety precaution, you must have a motor pool driver after a lumbar nerve root injection, even if you do not receive sedation. Resume activity as tolerated when function has returned. Medications Resume your routine medications after your procedure. You may resume blood thinners per your regular schedule after the procedure. If you received sedation: If you received sedation for your procedure, you may feel sleepy or not yourself for several hours today. For the next 24 hours avoid activities that requires alertness or coordination. This includes: Driving or operating heavy machinery Using power tools Consuming alcohol Do not make important or complex decisions or sign legal documents in the next 24 hours. Other Instructions: If you feel severe pain at the injection site with swelling and redness, increased leg weakness, a fever of 101 or higher, headache (or worsening headache), changes in vision or urinary retention: Please call the office at , or have someone take you to the nearest emergency room. Tell the emergency room staff that you recently had a spine injection. A doctor must evaluate you for bleeding and injection complications. If you lose control over bowel, bladder, or legs: Go to the nearest emergency room. If you are diabetic, the steroids used in this procedure can increase your blood sugar. If your blood sugar is 250mg/dL or higher, contact your primary care physician, or the doctor who manages your diabetes, to discuss how to get it back to normal. documented in this encounter [facility] 05-18-2024 Miscellaneous Notes [facility] pharmacy called to verify Dr. Nicole wanted the quantity of orphenadrine to be 30 vs to 60 since patient will take BID. One tab at bed time Pharmacy notified documented in this encounter [facility] 05-18-2024 Telephone encounter Note [facility] pharmacy called to verify Dr. Nicole wanted the quantity of orphenadrine to be 30 vs to 60 since patient will take BID. [facility] 05-18-2024 Telephone encounter Note One tab at bed time [facility] 05-18-2024 Telephone encounter Note Pharmacy notified [facility] 03-05-2024 Note Consultation Note Patient is presenting [...] with any questions or concerns that arise. [facility] Comment on above: Result Comment: Elec tronically Signed By: Andrew Eid DO\.br\Date and Time Signed: 03/05/24 15:55 EDT 03-05-2024 Evaluation + Plan note Extrac emeterio from: Title:chronic pain Author:Andrew Eid DO. Date:03/05/24 Patient is presenting with a longstanding [...] Date:07/30/2024 01:45:00 PM Scheduled Provider:Kehinde Davalos MD [facility] Type:Cardiology Follow Up (FT) Appointment Date:01/05/2025 01:00:00 PM Scheduled Provider:POLLY MARIANO PA-C Location:[facility] Appointment Type:URO Office Visit Future Scheduled Tests Radiology* Echo Transthoracic Complete 05/20/23 [facility]05-29-2024 Evaluation + Plan noteExtracted from: Title:Pain Managment [...] Date:01/30/2024 02:15:00 PM Scheduled Provider:En Carmen PA-C [facility] Type:Cardiology Follow Up (FT) Appointment Date:03/05/2024 03:30:00 PM Scheduled Provider:Andrew Eid DO Location:[facility] Appointment Type:Pain Management - Follow Up (FT) Appointment Date:01/05/2025 01:00:00 PM Scheduled Provider:POLLY MARIANO PA-C Location:[facility] Appointment Type:URO Office Visit Future Scheduled Tests Laboratory* Pancreatic Elastase, Fecal 01/29/23 * Fecal WBC Lactoferrin 01/29/23 * Giardia lamblia, Direct Detection EIA 01/29/23 * O & P Exam, Routine 01/29/23 * Clostridium Difficile PCR 01/29/23 * Enteric Panel by PCR 01/29/23 Radiology* Echo Transthoracic Complete 05/20/23 [facility]05-15-2024 Evaluation + Plan noteExtracted from: Title:Pain Managment [...] Date:01/30/2024 02:15:00 PM Scheduled Provider:En Carmen PA-C [facility] Type:Cardiology Follow Up (FT) Appointment Date:02/26/2024 11:15:00 AM Scheduled Provider:Andrew Eid DO [facility] Type:Pain Management - Follow Up (FT) Appointment Date:01/05/2025 01:00:00 PM Scheduled Provider:POLLY MARIANO PA-C Location:[facility] [place] Appointment Type:URO Office Visit Future Scheduled Tests Laboratory* Pancreatic Elastase, Fecal 01/29/23 * Fecal WBC Lactoferrin 01/29/23 * Giardia lamblia, Direct Detection EIA 01/29/23 * O & P Exam, Routine 01/29/23 * Clostridium Difficile PCR 01/29/23 * Enteric Panel by PCR 01/29/23 Radiology* Echo Transthoracic Complete 05/20/23 [facility]05-14-2024 Hospital Discharge instructions Patient Education 12/31/2023 12:57:29 [...] nerve stimulation). ?For women, using a medical appointment clerk to prevent urine leaks. This is a [...] right after experiencing incontinence. General instructions Take onps-ppz-blhqiva and prescription medicines only as told by [...] important. Where to find more information National Gable of Diabetes and Digestive and Kidney Diseases: www.niddk.nih.gov [employer] Association: www.urologyhealth.org Contact a health care [...] provider. Document Revised: 03/10/2021 Document Reviewed: 03/10/2021 [employer] Patient Education 2022 [employer]. Follow Up Care 09/17/2023 08:57:54 With:POLLY MARIANO PA-C, URL Address: [address] [place] [address] When: Unknown [facility] 04-24-2024 Note [id number] NoteDiagnosis: M54.16, lumbar radiculopathy Procedure: [...] the epidural space was confirmed using the jgfk-zw-jkdawhlubb technique and 2 cc of air. Injection [...] procedure, and agrees to continue currently prescribed/recommended therapies.[facility] Comment on above:Result Comment: Electronically Signed By: Andrew Eid DO\.br\Date and Time Signed: 12/11/23 09:29 [id number] Evaluation + Plan note Extracted from: Title:L4/5 [...] the epidural space was confirmed using the rxun-qd-rxeqkfrlys technique and 2 cc of air. Injection [...] Appointments Appointment Date:12/31/2023 01:00:00 PM Scheduled Provider:POLLY MAIRANO PA-C Location:[facility] Appointment Type:URO Office Visit Appointment Date:01/01/2024 11:00:00 AM Scheduled Provider:aCdy Alva PA-C Location:[facility] [place] Appointment Type:Pain Management - Follow Up (FT) Future Scheduled Tests Laboratory* Pancreatic Elastase, Fecal 01/29/23 * Fecal WBC Lactoferrin 01/29/23 * Giardia lamblia, Direct Detection EIA 01/29/23 * O & P Exam, Routine 01/29/23 * Clostridium Difficile PCR 01/29/23 * Enteric Panel by PCR 01/29/23 * CBC w/ Auto Diff 12/25/22 * Comprehensive Metabolic Panel 12/25/22 Radiology* Echo Transthoracic Complete 05/20/23 [facility]03-20-2024 Evaluation + Plan noteExtracted from: Title:Pain Managment [...] Date:12/31/2023 01:00:00 PM Scheduled Provider:POLLY MARIANO PA-C Location:[facility] Appointment Type:URO Office Visit Future Scheduled Tests Laboratory* Pancreatic Elastase, Fecal 01/29/23 * Fecal WBC Lactoferrin 01/29/23 * Giardia lamblia, Direct Detection EIA 01/29/23 * O & P Exam, Routine 01/29/23 * Clostridium Difficile PCR 01/29/23 * Enteric Panel by PCR 01/29/23 * CBC w/ Auto Diff 12/25/22 * Comprehensive Metabolic Panel 12/25/22 Radiology* Echo Transthoracic Complete 05/20/23 [facility]03-15-2024 History of Present illness Narrative* Fiona Rockwell, NURSE COMPANION-CAN CAPPER - 11/01/2023 12:30 PM EDT The OARRS/MAPPS database was reviewed today and found to be appropriate. No indication of medication diversion, or non compliance. Fiona Rockwell, WILMA-DELORES 11/01/23 1231 [facility] History of Present illness Narrative* Robert [...] last A1c was 6.5%. 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 She had a [...] ear normal. Nose: Nose normal. Mouth/Throat: Lips: Rosita. Mouth: Mucous membranes are moist. Pharynx: Oropharynx [...] Hallux valgus of right foot Follow-up with finish saw operator for surgery. Essential hypertension Blood pressure at goal. Take medications with a sip of water in the morning. Diabetic peripheral neuropathy (CMS-HCC) At goal. documented in this encounterKing[facility]et[facility] [id number] Miscellaneous Notes* Telephone Encounter - Anjelica Rutledge - 09/27/2023 8:08 AM EST Patient left message requesting if she can get refill of Tramadol. Please advise. [phone] documented in this encounterAlvin J. Siteman Cancer CenterYxhecctdcw23-21-1628 Telephone encounter Note* Telephone Encounter - Anjelica Rutledge - 09/27/2023 8:08 AM EST Patient left message requesting if she can get refill of Tramadol. Please advise. [phone] [facility] [id number] History of Present illness Narrative* Martin Arango, DPNnamdi - 09/26/2023 3:10 PM EST Patient: Keturah [...] Behavior, Mental Status Change, other, Vomiting hallucinate [place] Saline Nasal Gel [Aloe-Sodium Chloride] Facial numbness/tongue [...] History: Past Medical History: Diagnosis Date Asthma ([facility]) Bipolar disorder ([facility]) Bunion COPD (chronic obstructive pulmonary disease) ([facility]) Depression ([facility]) Diabetes ([facility]) Difficulty walking Fallen arches Fibromyalgia Hammer toe Kidney stones Migraine ([facility]) Mitral valve prolapse Downey's neuroma Onychomycosis [...] time., Disp: , Rfl: Continuous Blood Gluc Wooden Frame Builder (Dexcom G6 hearing instrument specialist) device, 1 UNIT YEARLY, Disp: , Rfl: Continuous Blood Gluc Sensor (Dexcom G6 Sensor) [facility] USE 1 UNIT DIRECTED AND CHANGE EVERY 10 DAYS, Disp: , Rfl: ergocalciferol (Vitamin D2) 1.25 MG (70755 UT) capsule, Take 1 capsule by mouth [...] oral route., Disp: , Rfl: nystatin (Mycostatin) 587043 UNIT/ML suspension, TAKE 5ML FOUR TIMES A [...] breath with positive history of tachycardia seeing tool machine shop supervisor for this Pulmonary: Positive history of shortness [...] polyneuropathy, with long-term current use of insulin ([facility]) 4. Contracture of right ankle 5. [...] risks, alternatives, benefits, post op complications and mcfp expectations were discussed including but not limited to: infection,bone infection,wound dehiscence hardware failure and irritation,wound dehiscence,delay union/mal union/non union of bone. RSDS,neuroma,duty limitations,DVT/PE, [place],nerve damage, scar, loss of sensation, swelling. Pt [...] date and current (date) documented in this encounterAlvin J. Siteman Cancer [id number] Hospital Discharge instructions Patient Education 09/17/2023 08:52:34 [...] Follow these instructions at home: Medicines Take jhoh-rww-yetsfro and prescription medicines only as told by [...] or the blood stops without treatment. Take qdqg-zuj-sfsxwll and prescription medicines only as told by your health care provider. Drink enough fluid to keep your urine pale yellow. This information is not intended to replace advice given to you by your health care provider. Make sure you discuss any questions you have with your health care provider. Document Revised: 04/05/2021 Document Reviewed: 04/05/2021 [employer] Patient Education 2022 [employer]. Follow Up Care 06/13/2023 09:13:04 With:POLLY MARIANO PA-C, URL Address: [address] [place] [address] [phone] When: Unknown Comments:3 mos (restart med) [facility] Evaluation note* Encounter Date Diagnosis Assessment Notes Treatment Notes Treatment Clinical Notes Aug, Chronic obstructive pulmonary disease, unspecified (ICD-10 - J44.9) Aug, Tobacco abuse (ICD-1 0 - Z72.0) Stop smoking. Chest CT in 03/2023 showed emphysema, no nodules. Next LDCT screening will be scheduled for 2023. Aug, Diastolic dysfunctio n (ICD-10 - I51.9) Aug, Nicotine dependence, cigarettes, uncomplicated (ICD-10 - F17.210) [facility] Other 12-07-2023 NotePROCEDURE: CARDIAC EVENT MONITOR 14 [...] suggested. READ BY: Josette Traore Dictated: 07/23/2023 [id number] Transcribed: 07/23/2023 cc:CAITLIN PryorGerman HospitalComment on above:Result Comment: Electronically Signed By: Yandel Jett MD\.br\Date and Time Signed: 07/25/23 08:27 [id number] Evaluation note* Encounter Date Diagnosis Assessment Notes [...] Nicotine dependence, cigarettes, uncomplicated (ICD-10 - F17.210) [facility] Other 06-01-2023 Hospital Discharge instructions Patient Education 01/17/2023 09:45:42 Colonoscopy, Care After Surgery Salam (CUSTOM) Colonoscopy Care After Surgery Please read the instructions outlined below and refer to this sheet in the next few weeks. These discharge instructions provide you with general information on caring for [facility] Your doctor may also give you [...] worse throughout the day. 01/17/2023 09:45:38 Hemorrhoids, Hjln-tm-Taxb Hemorrhoids Hemorrhoids are swollen veins that may [...] 3 times a day. General instructions Take gpkz-ytj-xmqncve and prescription medicines only as told by [...] provider. Document Revised: 02/14/2022 Document Reviewed: 02/14/2022 [employer] Patient Education 2022 [employer]. 01/17/2023 09:45:31 Colon Polyps Colon Polyps Colon [...] hard liquor (44 mL). General instructions Take okcy-mpv-pabtphg and prescription medicines only as told by [...] provider. Document Revised: 11/23/2020 Document Reviewed: 11/23/2020 [employer] Patient Education 2022 [employer]. Follow Up Care 09/14/2022 14:04:03 With:BELA WALSH, DHAVAL Poole, [facility] Address: [address] [place] [address]. [address] [place] [address] When: Unknown Comments:Office will call to schedule follow up appointment [facility]04-05-2023 Evaluation + Plan noteExtracted from: Title:Anesthesia Pre-Op Note - LILLY Author:Brody Raza DO Date:11/21/22 Plan [employer] Society of Anesthesiologists#(ASA) physical status classification: Class III. Anesthetic Preoperative Plan Anesthesia: General. . Anesthetic plan, risks, benefits, and alternatives discussed with the patient and/or family. Risks discussed: nausea, vomiting, headache, sore throat, aspiration, airway. Patient verbalized understanding. Informed consent was given. Consent was signed by the patient. Future Appointments Appointment Date:12/10/2022 02:40:00 PM Scheduled Provider:Inessa Grajeda CNP Location:[facility] Appointment Type:[facility] Follow Up Appointment Date:01/17/2023 09:50:00 AM Scheduled Provider: Location:[facility] Appointment Type:Surgery FT Appointment Date:01/30/2023 01:20:00 PM Scheduled Provider:POLLY MARIANO PA-C Location:[facility] [place] Appointment Type:URO Office Visit Future Scheduled Tests Laboratory* Clostridium difficile by PCR 05/09/22 * CBC w/ Auto Diff 05/09/22 * Comprehensive Metabolic Panel 05/09/22 [facility]04-05-2023 Hospital Discharge instructions Patient Education 11/21/2022 11:26:16 Foot Cryocuff Patient Instructions - FT (CUSTOM) 11/21/2022 11:26:16 Post Op Patient Instructions - FT (CUSTOM) 11/21/2022 08:48:42 Conchita - Post Operative Instructions (Revised 07/29/19) (Custom) ([id number]) (Custom) [place], [place] Martin Arango DPM, FACFAS POST OPERATIVE [...] feel free to call the doctor at: [phone] or [phone] Arango paged. Patient signatureDate Dr.Nicholas Conchita DPM, FACFAS Date Revised: 09-26 [facility]03-13-2023 Hospital Discharge instructions Patient Education 10/29/2022 14:43:33 [...] water added (diluted fruit juice). Eat bland, gmdh-eo-mydrvt foods in small amounts as you are able. These foods include bananas, applesauce, rice, lean meats, toast, and crackers. Avoid drinking fluids that contain a lot of sugar or caffeine, such as energy drinks, sports drinks, and soda. Avoid alcohol. Avoid spicy or fatty foods. General instructions Take guuz-pgi-mmvxjmp and prescription medicines only as told by your health care provider. Rest at home while you recover. Drink enough fluid to keep your urine pale yellow. Breathe slowly and deeply when you feel nauseous. Avoid smelling things that have strong odors. Wash your hands often using soap and water. If soap and water are not available, use hand registered nurse. Make sure that all people in your [...] recommendations for eating and drinking and take wffu-kvr-gcehvcw and prescription medicinesonly as told by your [...] 09/12/2005 Document Revised: 01/13/2019 Document Reviewed: 01/13/2019 [employer] Patient Education 2020 [employer]. Follow Up Care 10/02/2022 13:26:11 With:Inessa Grajeda CNP Address: When:1 to 2 weeks Comments:Following colonoscopy. [facility] 03-04-2023 Hospital Discharge instructions [...] Treatment for this condition includes: Antibiotic medicine. Zxgc-zuv-ygpiajm medicines to treat discomfort. Drinking enough water [...] Follow these instructions at home: Medicines Take qmio-kdy-gqvlktj and prescription medicines only as told by [...] 05/15/2006 Document Revised: 07/23/2019 Document Reviewed: 02/12/2019 [employer] Patient Education 2020 [employer]. 10/20/2022 12:23:03 Antibiotic Medicine, Adult Antibiotic Medicine, [...] 04/17/2005 Document Revised: 02/03/2019 Document Reviewed: 08/06/2017 [employer] Patient Education [employer] Follow Up Care 10/20/2022 10:33:51 With:ROBERT GIRON Address: [address] [place] [address] Business (1) When:10/23/2022 12:22:53 Comments:Call [...] you develop any new or worsening symptoms. [facility]03-04-2023 Evaluation + Plan noteExtracted from: Title:ED Note Author:Santos Landry DO Date: Acute UTI (N39.0: Urinary tr act infection, site not specified) Orders: azithromycin, = 1 packet(s), Oral, As Directed, as directed on package labeling, X 5 day(s), # 6 tab(s), Refills(s) 0, Pharmacy: [id number], 163, cm, 10/20/22 10:48:00 EST, Height/Length [...] Appointments Appointment Date:10/23/2022 09:00:00 AM Scheduled Provider: [facility] Type:US Abdominal/Pelvis (FT) Appointment Date:10/29/2022 02:40:00 PM Scheduled Provider:Inessa Grajeda CNP Location:[facility] Appointment Type:BADH Follow Up Appointment Date:10/30/2022 03:00:00 PM Scheduled Provider:Elliott Solis MD [facility] Type:Cardiology Follow Up (FT) Appointment Date:11/07/2022 02:40:00 PM Scheduled Provider: Location:[facility] Appointment Type:Surgery FT Appointment Date:01/30/2023 01:20:00 PM Scheduled Provider:POLLY MARIANO PA-C Location:[facility] [place] Appointment Type:URO Office Visit Diagnostic Tests Pending * Urine Culture 10/20/22 Future Scheduled Tests Laboratory* Clostridium difficile by PCR 05/09/22 * CBC w/ Auto Diff 05/09/22 * Comprehensive Metabolic Panel 05/09/22 Radiology* US Abdomen Complete 10/23/22 [facility]02-24-2023 Hospital Discharge instructions Patient Education 10/12/2022 14:38:59 [...] take to decrease my back pain? Take uona-shi-wieaizh or prescription medicines only as told by [...] and in- person support groups through: The [employer]: https://theacpa.org/Support-Groups The [place].S[place] Pain [...] 08/19/2016 Document Revised: 07/18/2018 Document Reviewed: 04/13/2017 [employer] Patient Education [employer] Follow Up Care 10/12/2022 12:55:29 With:ROBERT GIRON Address: [address] [place] [phone] Business (1) When:10/15/2022 14:38:47 Comments:Call the office [...] you develop any new or worsening symptoms. [facility]02-24-2023 Evaluation + Plan noteExtracted from: Title:ED Note [...] Appointments Appointment Date:10/23/2022 09:00:00 AM Scheduled Provider: [facility] App[facility] Type:US Abdominal/Pelvis (FT) Appointment Date:10/29/2022 02:40:00 PM Scheduled Provider:Inessa Grajeda CNP Location:[facility] Appointment Type:BADH Follow Up Appointment Date:10/30/2022 03:00:00 PM Scheduled Provider:Elliott Solis MD [facility] Type:Cardiology Follow Up (FT) Appointment Date:11/07/2022 02:40:00 PM Scheduled Provider: Location:[facility] Appointment Type:Surgery FT Appointment Date:01/30/2023 01:20:00 PM Scheduled Provider:POLLY MARIANO PA-C Location:[facility] [place] Appointment Type:URO Office Visit Future Scheduled Tests Laboratory* Fecal WBC Lactoferrin 05/09/22 * Giardia lamblia, Direct Detection EIA 05/09/22 * O & P Exam, Routine 05/09/22 * Clostridium difficile by PCR 05/09/22 * Enteric Panel by PCR 05/09/22 * CBC w/ Auto Diff 05/09/22 * Comprehensive Metabolic Panel 05/09/22 Radiology* US Abdomen Complete 10/23/22 [facility]02-14-2023 Hospital Discharge instructions Patient Education 10/02/2022 13:01:04 [...] water added (diluted fruit juice). Eat bland, wjqk-om-hldedr foods in small amounts as you are able. These foods include bananas, applesauce, rice, lean meats, toast, and crackers. Avoid fluids that contain a lot of sugar or caffeine, such as energy drinks, sports drinks, and soda. Avoid alcohol. Avoid spicy or fatty foods. General instructions Take efvx-jov-oonommw and prescription medicines only as told by your health care provider. Drink enough fluid to keep your urine pale yellow. Wash your hands often using soap and water. If soap and water are not available, use hand registered nurse. Make sure that all people in your [...] eating and drinking to prevent dehydration. Take fqku-doa-yhougxy and prescription medicines only as told by [...] 08/05/2006 Document Revised: 11/27/2019 Document Reviewed: 01/13/2019 [employer] Patient Education 2020 [employer]. Follow Up Care 09/21/2022 11:43:03 With:Inessa Grajeda CNP Address: When:1 month [facility] 01-19-2023 Evaluation + Plan noteExtracted from: Title:ANES Post-operative Note Author:Kurt Oseguera MD Date:09/06/22 Plan Transfer/Discharge: Transfer/Discharge Discharge when meets criteria ( To home ). Extracted from: Title:ANES Pre-operative Note Author:Lillie Oseguera MD Date:09/06/22 Plan [employer] Anesthesiologists (ASA) physical status classification: Class III. Anesthetic Preoperative Plan: Anesthesia General, and Monitored anethesia care. Future Appointments Appointment Date:10/30/2022 03:00:00 PM Scheduled Provider:Elliott Solis MD Location:FT.Cardiology Clinic Appointment Type:Cardiology Follow Up () Appointment Date:01/30/2023 01:20:00 PM Scheduled Provider:POLLY MARIANO PA-C Location:[facility] [place] Appointment Type:URO Office Visit Future Scheduled Tests Laboratory* Fecal WBC Lactoferrin 05/09/22 * Giardia lamblia, Direct Detection EIA 05/09/22 * O & P Exam, Routine 05/09/22 * Clostridium difficile by PCR 05/09/22 * Enteric Panel by PCR 05/09/22 * CBC w/ Auto Diff 05/09/22 * Comprehensive Metabolic Panel 05/09/22 [facility]01-19-2023 Hospital Discharge instructions Patient Education 09/06/2022 09:52:38 [...] what activities are safe for you. Take dkxn-qac-gflociz and prescription medicines only as told by [...] 02/03/2013 Document Revised: 01/27/2019 Document Reviewed: 01/05/2019 [employer] Patient Education 2020 [employer]. Follow Up Care 06/26/2022 12:25:13 With:Zulema CRAMER Address: [address] [place] [address] Business (1) When: Unknown Comments:Office to call for follow-up appointment [facility]11-17-2022 Evaluation note* Encounter Date Diagnosis Assessment Notes Treatment Notes Treatment Clinical Notes Jun, Chronic obstructive pulmonary disease, unspecified (ICD-10 - J44.9) Jun, Tobacco abuse (ICD-10 - Z72.0) Cut back on smoking to goal of stopping, Jun, Diastolic dysfunction (ICD-10 - I51.9) [facility] Other 04-25-2022 Hospital Discharge instructions Patient Education [...] fried and sweet foods. General instructions Take phjd-fqq-wrojqrh and prescription medicines only as told by [...] 06/01/2010 Document Revised: 11/26/2019 Document Reviewed: 08/21/2018 [employer] Patient Education 2020 [employer]. Follow Up Care 09/04/2021 10:41:00 With:LILI WALSH, Donaldo Moreira, URL Address: [facility] [address] , [place] [phone] When:04/12/2022 [facility] [place] 11-09-2021 NoteHNO ID: [id number] Author: Ye Rodriguez PA-C Service: ? Author Type: Physician Healthcare Administration Internship Type: Progress Notes Filed: 06/27/2021 4:56 PM Note Text: Comprehensive ENT Head and Neck Gable CLINIC NOTE CC: Keturah Herrera is a [...] Derived Hives - Atomoxetine (more content not included)...[facility]09-01-2021 NoteHNO ID: [id number] Author: RT James(R) Service: ? Author Type: [employer]vp [employer] Food [employer] Cooking Type: Progress Notes Filed: 04/19/2021 1:56 PM [...] BY: RT James(R) April 19, 2021 1:55 [facility]09-01-2021 NoteHNO ID: [id number] Author: Randi Farrell, DO Service: ? Author [...] She will follow-up in a month if [facility] NoteHNO ID: [id number] Author: RT James(Lillie) Service: ? Author Type: [employer] Food [employer] Cooking Type: Progress Notes Filed: 04/19/2021 1:09 PM [...] BY: RT James(R) April 19, 2021 1:09 [facility] Future Appointments Appointment Date:12/11/2021 11:45:00 AM Scheduled Provider:Donaldo PEARSON MD Location:[facility] Appointment Type:URO Office Visit Appointment Date:01/11/2022 02:15:00 PM Scheduled Provider:Zulema CRAMER MD Location:[facility] Appointment Type:BAD Follow Up [facility] Future Appointments Appointment Date:01/11/2022 02:15:00 PM Scheduled Provider:Zulema CRAMER MD Location:[facility] Appointment Type:BADH Follow Up Appointment Date:04/09/2022 01:45:00 PM Scheduled Provider:Donaldo PEARSON MD Location:[facility] Appointment Type:URO Office Visit [facility] evaluation + Plan note Future Appointments Appointment Date:02/01/2022 08:15:00 AM Scheduled Provider: Location:[facility] Appointment Type:Surgery PAT COVID Testing Appointment Date:02/01/2022 09:00:00 AM Scheduled Provider: Location:[facility] Appointment Type:Surgery FT Appointment Date:02/08/2022 09:40:00 AM Scheduled Provider: Location:[facility] Appointment Type:Surgery FT Appointment Date:04/09/2022 01:45:00 PM Scheduled Provider:Donaldo PEARSON MD Location:[facility] Appointment Type:URO Office Visit [facility] Evaluation + Plan note Future Appointments Appointment Date:02/01/2022 08:15:00 AM Scheduled Provider: Location:[facility] Appointment Type:Surgery PAT COVID Testing Appointment Date:02/01/2022 09:00:00 AM Scheduled Provider: Location:[facility] Appointment Type:Surgery FT Appointment Date:02/08/2022 09:40:00 AM Scheduled Provider: Location:[facility] Appointment Type:Surgery FT Appointment Date:03/06/2022 10:30:00 AM Scheduled Provider:Cady CALIX CNP Location:FT.Cardiology Clinic Appointment Type:Cardiology Follow Up (FT) Appointment Date:04/09/2022 01:45:00 PM Scheduled Provider:Donaldo PEARSON MD Location:[facility] Appointment Type:URO [facility] Future Appointments Appointment Date:02/08/2022 09:30:00 AM Scheduled Provider: Location:[facility] Appointment Type:Surgery FT Appointment Date:03/06/2022 10:30:00 AM Scheduled Provider:Cady CALIX CNP Location:.[facility] Appointment Type:Cardiology Follow Up (FT) Appointment Date:04/09/2022 01:45:00 PM Scheduled Provider:Donaldo PEARSON MD Location:[facility] Future Appointments Appointment Date:03/06/2022 10:30:00 AM Scheduled Provider:Cady CALIX CNP [facility] Type:Cardiology Follow Up (FT) Appointment Date:03/22/2022 08:15:00 AM Scheduled Provider: Location:[facility] Appointment Type:Surgery PAT COVID Testing Appointment Date:03/29/2022 08:40:00 AM Scheduled Provider: Location:[facility] Appointment Type:Surgery FT Appointment Date:04/09/2022 01:45:00 PM Scheduled Provider:Donaldo PEARSON MD [facility] note Future Appointments Appointment Date:03/20/2022 01:00:00 PM Scheduled Provider: [facility] Type:Cardiology Nurse Visit (FT) Appointment Date:03/22/2022 08:15:00 AM Scheduled Provider: Location:[facility] Appointment Type:Surgery PAT COVID Testing Appointment Date:03/29/2022 08:40:00 AM Scheduled Provider: Location:[facility] Appointment Type:Surgery FT Appointment Date:04/09/2022 01:45:00 PM Scheduled Provider:Donaldo PEARSON MD [facility] Appointment Type:URO Office Visit Appointment Date:09/06/2022 01:15:00 PM Scheduled Provider:Elliott Solis MD [facility] Type:Cardiology Follow Up (FT) [facility] Future Appointments Appointment Date:03/22/2022 08:15:00 AM Scheduled Provider: Location:[facility] Appointment Type:Surgery PAT COVID Testing Appointment Date:03/29/2022 08:40:00 AM Scheduled Provider: Location:[facility] Appointment Type:Surgery FT Appointment Date:04/09/2022 01:45:00 PM Scheduled Provider:Donaldo PEARSON MD Location:[facility] Appointment Type:URO Office Visit Appointment Date:09/06/2022 01:15:00 PM Scheduled Provider:Elliott Solis MD [facility] Type:Cardiology Follow Up (FT) [facility] Future Appointments Appointment Date:03/29/2022 08:40:00 AM Scheduled Provider: Location:[facility] Appointment Type:Surgery FT Appointment Date:04/09/2022 01:45:00 PM Scheduled Provider:Donaldo PEARSON MD Location:[facility] Appointment Type:URO Office Visit Appointment Date:09/06/2022 01:15:00 PM Scheduled Provider:Elliott Solis MD [facility] Type:Cardiology Follow Up (FT) [facility] Future Appointments Appointment Date:05/09/2022 01:40:00 PM Scheduled Provider:Inessa Grajeda CNP Location:[facility] Appointment Type:BADH Follow Up Appointment Date:05/15/2022 01:30:00 PM Scheduled Provider:Cady CALIX CNP Location:.[facility] Clinic Appointment Type:Cardiology ED Follow Up (FT) Appointment Date:05/16/2022 01:20:00 PM Scheduled Provider:POLLY MARIANO PA-C Location:[facility] Appointment Type:URO Office Visit Appointment Date:09/06/2022 01:15:00 PM Scheduled Provider:Elliott Solis MD [facility] Type:Cardiology Follow Up (FT) [facility] Future Appointments Appointment Date:06/11/2022 11:00:00 AM Scheduled Provider: Location:[facility] Appointment Type:Surgery PAT COVID Testing Appointment Date:06/18/2022 09:45:00 AM Scheduled Provider: Location:[facility] Appointment Type:Surgery FT Appointment Date:09/06/2022 01:15:00 PM Scheduled Provider:Elliott Solis MD [facility] Type:Cardiology Follow Up (FT) Appointment Date:10/30/2022 03:00:00 PM Scheduled Provider:Elliott Solis MD [facility] Type:Cardiology Follow Up (FT) Future Scheduled Tests Laboratory* Fecal WBC Lactoferrin 05/09/22 * Giardia lamblia, Direct Detection EIA 05/09/22 * O & P Exam, Routine 05/09/22 * Clostridium difficile by PCR 05/09/22 * Enteric Panel by PCR 05/09/22 * CBC w/ Auto Diff 05/09/22 * Comprehensive Metabolic Panel 05/09/22 [facility] Future Appointments Appointment Date:09/06/2022 01:15:00 PM Scheduled Provider:Elliott Solis MD [facility] Type:Cardiology Follow Up (FT) Appointment Date:10/30/2022 03:00:00 PM Scheduled Provider:Elliott Solis MD [facility] Type:Cardiology Follow Up (FT) Appointment Date:01/30/2023 01:20:00 PM Scheduled Provider:POLLY MARIANO PA-C Location:[facility] Appointment Type:URO Office Visit Future Scheduled Tests Laboratory* Fecal WBC Lactoferrin 05/09/22 * Giardia lamblia, Direct Detection EIA 05/09/22 * O & P Exam, Routine 05/09/22 * Clostridium difficile by PCR 05/09/22 * Enteric Panel by PCR 05/09/22 * CBC w/ Auto Diff 05/09/22 * Comprehensive Metabolic Panel 05/09/22 [facility] Future Appointments Appointment Date:10/30/2022 03:00:00 PM Scheduled Provider:Elliott Solis MD [facility] Type:Cardiology Follow Up (FT) Appointment Date:01/30/2023 01:20:00 PM Scheduled Provider:POLLY MARIANO PA-C Location:[facility] Appointment Type:URO Office Visit Future Scheduled Tests Laboratory* Fecal WBC Lactoferrin 05/09/22 * Giardia lamblia, Direct Detection EIA 05/09/22 * O & P Exam, Routine 05/09/22 * Clostridium difficile by PCR 05/09/22 * Enteric Panel by PCR 05/09/22 * CBC w/ Auto Diff 05/09/22 * Comprehensive Metabolic Panel 05/09/22 [facility] Future Appointments Appointment Date:10/23/2022 09:00:00 AM Scheduled Provider: Location[facility] Appointment Type:US Abdominal/Pelvis (FT) Appointment Date:10/29/2022 02:40:00 PM Scheduled Provider:Inessa Grajeda CNP Location:[facility] Appointment Type:BADH Follow Up Appointment Date:10/30/2022 03:00:00 PM Scheduled Provider:Elliott Solis MD [facility] Type:Cardiology Follow Up (FT) Appointment Date:10/31/2022 03:15:00 PM Scheduled Provider: Location:[facility] Appointment Type:Surgery PAT COVID Testing Appointment Date:11/07/2022 02:40:00 PM Scheduled Provider: Location:[facility] Appointment Type:Surgery FT Appointment Date:01/30/2023 01:20:00 PM Scheduled Provider:POLLY MARIANO PA-C Location:[facility] [place] Appointment Type:URO Office Visit Future Scheduled Tests Laboratory* Fecal WBC Lactoferrin 05/09/22 * Giardia lamblia, Direct Detection EIA 05/09/22 * O & P Exam, Routine 05/09/22 * Clostridium difficile by PCR 05/09/22 * Enteric Panel by PCR 05/09/22 * CBC w/ Auto Diff 05/09/22 * Comprehensive Metabolic Panel 05/09/22 Radiology* US Abdomen Complete 10/23/22 [facility] Evaluation + Plan note Future Appointments Appointment Date:10/30/2022 08:00:00 AM Scheduled Provider: [facility] Type:US Abdominal/Pelvis (FT) Appointment Date:10/30/2022 03:00:00 PM Scheduled Provider:Elliott Solis MD Location:.[facility] Clinic Appointment Type:Cardiology Follow Up (FT) Appointment Date:11/07/2022 02:40:00 PM Scheduled Provider: Location:[facility] Appointment Type:Surgery FT Appointment Date:12/10/2022 02:40:00 PM Scheduled Provider:Inessa Grajeda CNP Location:[facility] Appointment Type:BAD Follow Up Appointment Date:01/30/2023 01:20:00 PM Scheduled Provider:POLLY MARIANO PA-C Location:[facility] Appointment Type:URO Office Visit Future Scheduled Tests Laboratory* Clostridium difficile by PCR 05/09/22 * CBC w/ Auto Diff 05/09/22 * Comprehensive Metabolic Panel 05/09/22 Radiology* US Abdomen Complete 10/30/22 [facility] Evaluation + Plan note Future Appointments Appointment Date:11/07/2022 02:40:00 PM Scheduled Provider: Location:[facility] Appointment Type:Surgery FT Appointment Date:11/09/2022 10:00:00 AM Scheduled Provider: [facility] Type:US Abdominal/Pelvis (FT) Appointment Date:12/10/2022 02:40:00 PM Scheduled Provider:Inessa Grajeda CNP Location:[facility] Appointment Type:[facility] Follow Up Appointment Date:01/30/2023 01:20:00 PM Scheduled Provider:POLLY MARIANO PA-C Location:[facility] Appointment Type:URO Office Visit Future Scheduled Tests Laboratory* Clostridium difficile by PCR 05/09/22 * CBC w/ Auto Diff 05/09/22 * Comprehensive Metabolic Panel 05/09/22 Radiology* US Abdomen Complete 11/09/22 [facility] Future Appointments Appointment Date:12/10/2022 02:40:00 PM Scheduled Provider:Inessa Grajeda CNP Location:[facility] Appointment Type:[facility] Follow Up Appointment Date:01/17/2023 09:50:00 AM Scheduled Provider: Location:[facility] Appointment Type:Surgery FT Appointment Date:01/30/2023 01:20:00 PM Scheduled Provider:POLLY MARIANO PA-C [facility] Appointment Type:URO Office Visit Future Scheduled Tests Laboratory* Clostridium difficile by PCR 05/09/22 * CBC w/ Auto Diff 05/09/22 * Comprehensive Metabolic Panel 05/09/22 [facility] Future Appointments Appointment Date:01/30/2023 01:20:00 PM Scheduled Provider:POLLY MARIANO PA-C Location:[facility] Appointment Type:URO Office Visit Appointment Date:02/06/2023 02:00:00 PM Scheduled Provider:Inessa Grajeda CNP Location:[facility] Appointment Type:BADH Follow Up Future Scheduled Tests Laboratory* Clostridium difficile by PCR 05/09/22 * CBC w/ Auto Diff 05/09/22 * CBC w/ Auto Diff 12/25/22 * Comprehensive Metabolic Panel 05/09/22 * Comprehensive Metabolic Panel 12/25/22 [facility] Future Appointments Appointment Date:06/14/2023 11:00:00 AM Scheduled Provider: [facility] Type:CV Holter/Event (FT) Appointment Date:07/25/2023 11:45:00 AM Scheduled Provider:Elliott SOLIS MD [facility] Type:Cardiology Follow Up (FT) Future Scheduled Tests Laboratory* Pancreatic Elastase, Fecal 01/29/23 * Fecal WBC Lactoferrin 01/29/23 * Giardia lamblia, Direct Detection EIA 01/29/23 * O & P Exam, Routine 01/29/23 * Clostridium Difficile PCR 01/29/23 * Enteric Panel by PCR 01/29/23 * CBC w/ Auto Diff 12/25/22 * Comprehensive Metabolic Panel 12/25/22 Radiology* Echo Transthoracic Complete 05/20/23 [facility] Future Appointments Appointment Date:07/25/2023 11:45:00 AM Scheduled Provider:Elliott SOLIS MD [facility] Type:Cardiology Follow Up (FT) Appointment Date:07/30/2023 02:00:00 PM Scheduled Provider:POLLY MARIANO PA-C Location:[facility] Appointment Type:URO Office Visit Future Scheduled Tests Laboratory* Pancreatic Elastase, Fecal 01/29/23 * Fecal WBC Lactoferrin 01/29/23 * Giardia lamblia, Direct Detection EIA 01/29/23 * O & P Exam, Routine 01/29/23 * Clostridium Difficile PCR 01/29/23 * Enteric Panel by PCR 01/29/23 * CBC w/ Auto Diff 12/25/22 * Comprehensive Metabolic Panel 12/25/22 Radiology* Echo Transthoracic [facility]20/23 [facility] Future Appointments Appointment Date:07/30/2023 02:00:00 PM Scheduled Provider:POLLY MARIANO PA-C Location:[facility] Appointment Type:URO Office Visit Future Scheduled Tests Laboratory* Pancreatic Elastase, Fecal 01/29/23 * Fecal WBC Lactoferrin 01/29/23 * Giardia lamblia, Direct Detection EIA 01/29/23 * O & P Exam, Routine 01/29/23 * Clostridium Difficile PCR 01/29/23 * Enteric Panel by PCR 01/29/23 * CBC w/ Auto Diff 12/25/22 * Comprehensive Metabolic Panel 12/25/22 Radiology* Echo Transthoracic Complete 05/20/23 [facility] Future Appointments Appointment Date:12/31/2023 01:00:00 PM Scheduled Provider:POLLY MARIANO PA-C Location:[facility] Appointment Type:URO Office Visit Future Scheduled Tests [...] Date:01/01/2024 11:00:00 AM Scheduled Provider:Cady Alva PA-C [facility] Type:Pain Management - Follow Up (FT) Appointment Date:01/30/2024 02:15:00 PM Scheduled Provider:En Carmen PA-C [facility] Type:Cardiology Follow Up (FT) Appointment Date:01/05/2025 01:00:00 PM Scheduled Provider:POLLY MARIANO PA-C Location:[facility] Appointment Type:URO Office Visit Future Scheduled Tests [...] Date:03/05/2024 03:30:00 PM Scheduled Provider:Andrew Eid DO Location:[facility] Appointment Type:Pain Management - Follow Up (FT) Appointment Date:07/30/2024 01:45:00 PM Scheduled Provider:Kehinde Davalos MD [facility] Type:Cardiology Follow Up (FT) Appointment Date:01/05/2025 01:00:00 PM Scheduled Provider:POLLY MARIANO PA-C Location:[facility] Appointment Type:URO Office Visit Future Scheduled Tests Radiology* Echo Transthoracic Complete 05/20/23 [facility] noteNo assessment information available [facility] Work Phone: Evaluation noteNo [facility]Nos[facility] [employer] Other Evaluation note* Diagnosis Oral thrush Candidiasis of mouth [facility] Diagnosis Chronic bilateral low back pain with sciatica, sciatica laterality unspecified [facility] Diagnosis Anxiety state Anxiety state, unspecified [facility] Diagnosis Chronic bilateral low back pain with bilateral sciatica Diabetic peripheral neuropathy (CMS/HCC) Type II or unspecified type diabetes mellitus with neurological manifestations, not stated as uncontrolled Lumbar radiculopathy Thoracic or lumbosacral neuritis or radiculitis, unspecified documented in this encounter [facility] HealthcareEvaluation note* Diagnosis Hav (hallux abducto valgus), right- Primary Plantar fasciitis Plantar fascial fibromatosis Diabetes 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 polyneuropathy, with long-term current use of insulin ([facility]/HCC) Contracture of right ankle Bone spur of right foot documented in this encounter [facility] HealthcareEvaluation note* Diagnosis Chronic bilateral low back pain with bilateral sciatica Diabetic peripheral neuropathy (CMS/HCC) Type II or unspecified type diabetes mellitus with neurological manifestations, not stated as uncontrolled Lumbar radiculopathy Thoracic or lumbosacral neuritis or radiculitis, unspecified documented in this encounter [facility] HealthcareEvaluation note* Diagnosis Pre-op evaluation- Primary Hallux valgus of right foot Essential hypertension Unspecified essential hypertension Diabetic peripheral neuropathy (CMS-HCC) Type II or unspecified type diabetes mellitus with neurological manifestations, not stated as uncontrolled documented in this encounter [facility]* Diagnosis Anxiety state Anxiety state, unspecified Type 2 diabetes mellitus without complication, without long-term current use of insulin ([facility]-HCC) Type 2 diabetes mellitus with diabetic mononeuropathy, without long-term current use of insulin ([facility]) documented in this encounter [facility]* Diagnosis Primary osteoarthritis of left knee- Primary Chronic pain of left knee documented in this encounter [facility]* Diagnosis Pain Generalized pain documented [facility] this [facility] Diagnosis Right elbow pain Pain in joint, upper arm [facility] Diagnosis Anxiety Anxiety state, unspecified Chronic pain of left knee- Primary Osteoarthritis Osteoarthrosis, unspecified whether generalized or localized, unspecified site Primary osteoarthritis of left knee Chronic pain of left knee documented in this encounter [facility]* Diagnosis Xerosis cutis- Primary Other specified disease of sebaceous glands documented in this encounter [facility] HealthcareHistory general Narrative - Reported* Type Description [...] Hospitalization History see above surgical histo ry [employer] Other History general Narrative - Reported* Type [...] iting Hospitalization History see above surgical histo [employer] Other Hospital course Narrative No data available for this section [facility] No data available for this section [facility] RehabilitationInstructionsNot on filedocumented in this encounter [facility] [...] Health SystemInstructionsNot on filedocumented in this encounter [facility] SystemProgress note No data available for this section [facility] for referral (narrative)* Diagnostic Procedure Only (Routine) - Closed Specialty Diagnoses / Procedures Referred By Contac t Referred To Contact XR IMAGING Diagnoses Pain Procedures XR SHOULDER GENERAL 3V OR MORE AP/TRUE AP/OTHER RT X-RAY SHOULDER COMPLET MIN 2 VIEWS Randi Farrell, DO [address] [place] [address] [place] [address] Referral ID Status Reason Start Date Expiration Date V isits Requested Visits Authorized Closed Auto-Generate d Referral 04/17/2021 05/17/2022 1 1 [facility] for referral (narrative)* Diagnostic Procedure Only (Routine) - Closed Specialty Diagnoses / Procedures Referred By Contac t Referred To Contact XR IMAGING Diagnoses Right elbow pain Procedures XR ELBOW SPECIAL VIEWS AP/LAT/OTHER RT X-RAY ELBOW MINIMUM 3 VIEWS Randi Farrell DO [address] [place] [address] [place] [address] Referral ID Status Reason Start Date Expiration Date V isits Requested Visits Authorized Closed Auto-Generate d Referral 04/19/2021 05/19/2022 1 1 [facility] for visit Narrative* Diagnostic Procedure Only (Routine) - Closed Specialty Diagnoses / Procedures Referred By Contac t Referred To Contact XR IMAGING Diagnoses Pain Procedures XR SHOULDER GENERAL 3V OR MORE AP/TRUE AP/OTHER RT X-RAY SHOULDER COMPLET MIN 2 VIEWS Randi Farrell DO [address] [place] [address] [place] [address] Referral ID Status Reason Start Date Expiration Date V isits Requested Visits Authorized Closed Auto-Generate d Referral 04/17/2021 05/17/2022 1 1 [facility] for visit Narrative* Diagnostic Procedure Only (Routine) - Closed Specialty Diagnoses / Procedures Referred By Contac t Referred To Contact XR IMAGING Diagnoses Right elbow pain Procedures XR ELBOW SPECIAL VIEWS AP/LAT/OTHER RT X-RAY ELBOW MINIMUM 3 VIEWS Randi Farrell, DO [address] [place] [address] [place] [address] Referral ID Status Reason Start Date Expiration Date V isits Requested Visits Authorized Closed Auto-Generate d Referral 04/19/2021 05/19/2022 1 1 [facility] Summary Purpose Family History No Family History [...] Chief Complaint g02.97 f17.210 Chief Complaint f17.210 Reason for Referral Specialty Diagnoses / Procedures Referred By Jamal t Referred To Contact Diagnoses Primary osteoarthritis of left knee Chronic pain of left knee Procedures Case request operating room: INJECTION BLOCK NERVE KNEE Left Genicular NB Alexsandra Smart, MYRNA [address], [address] [place] [address] Referral ID Status Reason Start Date Expiration Date V isits Requested Visits Authorized [id number] Pending Review 05/20/2024 05/20/2025 1 1 Additional Source Comments INFORMATION SOURCE (unrecogn ized section and content) DATE CREATED AUTHOR 10/09/2021 [facility] DATE CREATED AUTHOR AUTHOR'S ORGANIZ ATION 02/22/2022 [facility] DATE CREATED AUTHOR AUTHOR'S ORGANIZ ATION 01/28/2023 [facility] DATE CREATED AUTHOR AUTHOR'S ORGANIZ ATION 06/26/2023 [facility] DATE CREATED AUTHOR AUTHOR'S ORGANIZ ATION 03/09/2024 [facility] DATE CREATED AUTHOR AUTHOR'S ORGANIZ ATION 04/04/2024 [facility] DATE CREATED AUTHOR AUTHOR'S ORGANIZ ATION 04/28/2024 [facility] DATE CREATED AUTHOR AUTHOR'S ORGANIZ ATION 05/02/2024 [facility] DATE CREATED AUTHOR AUTHOR'S ORGANIZ ATION 05/19/2024 [facility] DATE CREATED AUTHOR AUTHOR'S ORGANIZ ATION 06/09/2024 [facility] Care Team (unrecognized sect ion and content) Team Status: Active Member Role Status Dates Robert Giron DO Primary Care Provider Active Team Status: Inactive Member Role Status Dates Robert Giron DO Primary Care Provider Active Valarie Conley APRN ACN- Attending Provider Active Zone Supervisor Firearms Relationship Specialty Start Date End Date Roebrt Giron DO [address], [place] [address] PCP - General Family Medicine 05/10/22 Zone Supervisor Firearms Relationship Specialty Start Date End Date Robert Giron DO [address] [place] [address] PCP - General Family Medicine 05/10/22 Zone Supervisor Firearms Relationship Specialty Start Date End Date Robert Giron DO [address], [place] [address] PCP - General Family Medicine 05/10/22 Zone Supervisor Firearms Relationship Specialty Start Date End Date Robert Giron DO [address] [place] [address] PCP - General Family Medicine 05/10/22 Zone Supervisor Firearms Relationship Specialty Start Date End Date Robert Giron MD [address] [place] [address] PCP - General Family Medicine 07/24/23 Zone Supervisor Firearms Relationship Specialty Start Date End Date Robert Giron DO [address], [place] [address] PCP - General Family Medicine 05/10/22 Zone Supervisor Firearms Relationship Specialty Start Date End Date NellaradhaRobert augustin DO [address], [place] [address] PCP - General Family Medicine 05/10/22 Zone Supervisor Firearms Relationship Specialty Start Date End Date NellaradhaRobert augustin [address], [place] [address] PCP - General Family Medicine 05/10/22 Zone Supervisor Firearms Relationship Specialty Start Date End Date NellacadenceRobert [address], [place] [address] PCP - General Family Medicine 05/10/22 Zone Supervisor Firearms Relationship Specialty Start Date End Date Robert Giron [address], [place] [address] PCP - General Family Medicine 05/10/22 Team Status: Inactive Member Role Status Dates Robert Giron DO Primary Care Provider Active Start: March 31, 2024 End: March 31, 2024 Valarie Conley APRN [facility] Attending Provider Active Start: March 31, 2024 End: March 31, 2024 Zone Supervisor Firearms Relationship Specialty Start Date End Date NellacadenceRobert [address], [place] [address] PCP - General Family Medicine 05/10/22 Zone Supervisor Firearms Relationship Specialty Start Date End Date Ronen Gironrafia Santiago [address], [place] [address] PCP - General Family Medicine 05/10/22 Zone Supervisor Firearms Relationship Specialty Start Date End Date Robert Giron DO [address], [place] [address] PCP - General Family Medicine 05/10/22 Zone Supervisor Firearms Relationship Specialty Start Date End Date Robert Giron DO [address], [place] [address] PCP - General Family Medicine 05/10/22 Zone Supervisor Firearms Relationship Specialty Start Date End Date Robert Giron MD [address], [place] [address] PCP - General Family Medicine 07/24/23 Zone Supervisor Firearms Relationship Specialty Start Date End Date Robert Giron DO [address], [place] [address] PCP - General Family Medicine 05/10/22 Goals [...] Reason Onset Date Comments Med Refill 11/04/2023 Reason Comments Knee Pain Source Comments (unrecognize d section and content) In the event this informatio n is protected by the Federal Confidentiality of Alcohol and Drug Abuse Patient Records regulations: The Federal rules restrict any use of the information to criminally investigate or prosecute any alcohol or drug abuse patient.[facility] FOR RECORDS PERTAINING TO PATIENTS WHO ARE [...] BE BASED ON THE PRIMARY CLINICAL RECORDS. [employer] [facility]. provides no warranty or guarantee of the accuracy or completeness of information in this document.
--- NOTE | 2024-06-09 23:52 | ED.EXTPRO1 ---
HPI - Extremity Problem General Chief complaint: Extremity Problem, Nontraumatic Stated complaint: L KNEE PAIN Time Seen by Provider: 06/09/24 23:43 Source: patient Mode of arrival: walk-in Limitations: no limitations History of Present Illness HPI Narrative: 53-year-old female presents for left knee pain. She has a history of chronic pain in this knee and had a nerve block performed 4 days ago. She states she does not have any pain medication at home. No trauma or injury. The pain is severe and continuous. Related Data Home Medications ?Medication ?Instructions ?Recorded ?Confirmed alendronate 70 mg tablet 70 mg PO QWEEK 11/05/23 12/01/23 alprazolam 1 mg tablet 1 mg PO TID PRN anxiety 11/05/23 12/01/23 aripiprazole 15 mg tablet 15 mg PO DAILY 11/05/23 12/01/23 atorvastatin 80 mg tablet 80 mg PO DAILY 11/05/23 12/01/23 calcium carbonate 600 mg PO BID 11/05/23 12/01/23 carvedilol 25 mg tablet 25 mg PO BID 11/05/23 12/01/23 cetirizine 10 mg tablet 10 mg PO DAILY 11/05/23 12/01/23 cyclobenzaprine 10 mg tablet 10 mg PO Q8H PRN spasms 11/05/23 12/01/23 tramadol 50 mg tablet 50 mg PO Q6H 04/19/24 04/19/24 Allergies Allergy/AdvReac Type Severity Reaction Status Date / Time adhesive tape Allergy Blister Verified 06/09/24 23:39 amitriptyline Allergy Hives Verified 06/09/24 23:39 amoxicillin Allergy Anaphylaxis Verified 06/09/24 23:39 atomoxetine (From Strattera) Allergy Agitated Verified 06/09/24 23:39 bupropion (From Wellbutrin) Allergy Hives Verified 06/09/24 23:39 codeine Allergy Hives Verified 06/09/24 23:39 dexamethasone Allergy Hives Verified 06/09/24 23:39 divalproex sodium (From Allergy Hives Verified 06/09/24 23:39 Depakote) duloxetine (From Cymbalta) Allergy Hives Verified 06/09/24 23:39 fluticasone (From Advair Allergy Anaphylaxis Verified 06/09/24 23:39 Diskus) gabapentin Allergy Anaphylaxis Verified 06/09/24 23:39 ibuprofen Allergy Anaphylaxis Verified 06/09/24 23:39 ketorolac (From Toradol) Allergy Anaphylaxis Verified 06/09/24 23:39 meloxicam (From Mobic) Allergy Anaphylaxis Verified 06/09/24 23:39 methadone Allergy Anaphylaxis Verified 06/09/24 23:39 milnacipran (From Savella) Allergy Anaphylaxis Verified 06/09/24 23:39 nitrofurantoin (From Allergy Anaphylaxis Verified 06/09/24 23:39 Macrobid) paroxetine (From Paxil) Allergy Confusion Verified 06/09/24 23:39 Penicillins Allergy Altered Verified 06/09/24 23:39 Sense of Taste pregabalin (From Lyrica) Allergy Anxiety Verified 06/09/24 23:39 ropinirole (From Requip) Allergy Hives Verified 06/09/24 23:39 salmeterol (From Advair Allergy Hives Verified 06/09/24 23:39 Diskus) topiramate (From Topamax) Allergy Hives Verified 06/09/24 23:39 ziprasidone Allergy Hives Verified 06/09/24 23:39 fish Allergy Anaphylaxis Uncoded 06/09/24 23:39 Review of Systems ROS Narrative A ten point review of systems is negative except as noted above. [facility] Social History Smoking status: Never smoker Exam Narrative Exam Narrative: Nurses note and vital signs reviewed and patient is not hypoxic. General: The patient appears well and in no apparent distress. Patient is resting comfortably on cart. Skin: Warm, dry, no pallor noted. There is no rash noted. Head: Normocephalic, atraumatic Eye: Normal conjunctiva, no drainage Ears, Nose, Mouth, and Throat: oral mucosa is moist. Nares patent. Cardiovascular: Regular Rate and Rhythm Respiratory: Patient is in no distress, no accessory muscle use Back: non-tender GI: Soft and nontender Musculoskeletal: The left knee is not swollen or erythematous or warm to touch. No bruising rash or abrasions present. No calf swelling. Neurological: A&O, normal speech Psychiatric: Cooperative Constitutional Vital Signs, click to edit/add: Last Vital Signs Temp 98.2 F 06/09/24 23:30 Pulse 69 06/09/24 23:30 Resp 18 06/09/24 23:30 BP 145/102 H 06/09/24 23:30 Pulse Ox 98 06/09/24 23:30 O2 Del Method Room Air 06/09/24 23:30 Course Vital Signs Vital signs: Vital Signs Temperature 98.2 F 06/09/24 23:30 Pulse Rate 69 06/09/24 23:30 Respiratory Rate 18 06/09/24 23:30 Blood Pressure 145/102 H 06/09/24 23:30 Pulse Oximetry 98 06/09/24 23:30 Oxygen Delivery Method Room Air 06/09/24 23:30 Temperature 98.2 F 06/09/24 23:30 Pulse Rate 69 06/09/24 23:30 Respiratory Rate 18 06/09/24 23:30 Blood Pressure 145/102 H 06/09/24 23:30 Pulse Oximetry 98 06/09/24 23:30 Oxygen Delivery Method Room Air 06/09/24 23:30 MDM - Extremity (Nontraumatic) MDM Narrative Medical decision making narrative: She was given a single Percocet here and will call her pain management physician in the morning. The importance of obtaining pain medications from her pain management physician was discussed. Differential Diagnosis Differential diagnosis: Likely other (Chronic pain) Discharge Plan Discharge Chief Complaint: Extremity Problem, Nontraumatic Clinical Impression: Chronic knee pain Patient Disposition: Home, Self-Care Time of Disposition Decision: 23:50 Condition: Good Mode of Transportation: Private Vehicle Prescriptions / Home Meds: No Action alendronate 70 mg tablet 70 mg PO QWEEK alprazolam 1 mg tablet 1 mg PO TID PRN (Reason: anxiety) aripiprazole 15 mg tablet 15 mg PO DAILY atorvastatin 80 mg tablet 80 mg PO DAILY calcium carbonate 600 mg calcium (1,500 mg) tablet 600 mg PO BID carvedilol 25 mg tablet 25 mg PO BID cetirizine 10 mg tablet 10 mg PO DAILY cyclobenzaprine 10 mg tablet 10 mg PO Q8H PRN (Reason: spasms) tramadol 50 mg tablet 50 mg PO Q6H Print Language: Bengali Instructions: Chronic Pain (ED) Additional Instructions: Call your pain management physician in the morning. Referrals: IVON GIRON [Primary Care Provider] - 1 week
[2024-06-10] MEDS: OXYCODONE HCL/ACETAMINOPHEN 5MG/325MG 1 TAB PO (00:21)
== END 2024-06-10 00:24 | disposition home or self-care (01) ==
PROVIDERS: Emergency Provider Emergency Medicine; PCP Family Medicine
DX: M25.562 Pain in left knee (principal); G89.29 Other chronic pain
CPT/HCPCS: 99283

== ENCOUNTER 2024-07-29 19:50 | Outpatient (REF) | payer OTHER, SELFPAY ==
--- OUTSIDE RECORDS SUMMARY | 2024-07-29 20:11 | XMS_ITS | CCD ---
Author Organization [facility] Care Team Providers Care Director Of Corporate Marketing Name Role Phone ROBERT GIRON Primary Care Physician JavierValarie Unavailable JAVIERVALARIE Attending Unavailable FURLONG, DR ROBERT Santiago Primary Care Unavailable JAVIER, [...] Admitting Unavailable MISC, DR MALIN Attending Unavailable FURLONG, DR ROBERT Santiago Primary [...] FURLONG, DR ROBERT Santiago Primary Care Unavailable CALDWELL, DR MAMIE Quintana Consulting Unavailable JAJA, ELIUD Consulting Unavailable MISC, DR MALIN Attending Unavailable MISC, DR MALIN Admitting Unavailable FURLONG, DR ROBERT Santiago Primary Care Unavailable FURLONG, DR ROBERT Santiago Consulting Unavailable CALDWELL, DR MAMIE Quintana Consulting Unavailable MISC, DR [...] Unavailable KIERSTEN ., SHARYN LEES Consulting Unavailabl TUTU Rosas Attending Unavailable TUTU HANSON Admitting Unavailable DO Robert Giron Primary Care Provider WILMA Conley Attending Provider [phone] NURIA SANCHEZ Referring Unavailable DRAGAN SEN Primary Care Unavailable NellaloRobert augustin DO Primary Care Provider Robert Giron MD Primary Care Provider NONE, XXXX Referring Unavailable MYRNA Carmen Attending Unavailable Johnie, ZINA Cady Lima Admitting Carolina vailable Johnie, ZINA Cady L Attending Carolina vailable Johnie, ZINA Cady L Referring Carolina vailable Inessa Grajeda Attending Unavailable POLLY MARIANO Attending Unavailable POLLY MARIANO Attending Unavailable POLLY MARIANO Attending Unavailable DO Andrew Eid Admitting UnavailAnrdew Cagle Attending Unavailable Andrew Eid Referring Unavailable Andrew Eid Admitting Unavailable Andrew Eid Attending Unavailable ROBERT GIRON Referring Unavailable Cady Alva Attending Unavailable Nuria Sanchez Referring Unavailable MYRNA Alva Admitting Unavailabl Cady Chaidez Attending Unavailable MYRNA Alva Admitting Unavailabl e FURLONG, ROBERT Referring Unavailable MYRNA Alva Admitting Unavailabl e FURLONG, ROBERT Referring Unavailable Cady Alva Attending Unavailable NONE, XXXX Referring Unavailable Elliott SOLIS Admitting Unavailable Elliott OSLIS Attending Unavailable NONE, XXXX Referring Unavailable ChristoffZINA lee Admitting Carolina vailable ChristoffersonZINA Attending Carolina vailable NONE, XXXX Referring Unavailable Elliott SOLIS Admitting Unavailable Elliott SOLIS Attending Unavailable NONE, XXXX Referring Unavailable Christofferson, ZINA Lazar L Attending Carolina vailable Furradhang, DO Robert Primary Care Provider WILMA Conley Attending Provider Valarie Conley Attending Unavailable Valarie Conley Admitting Unavailable Furlong, Robert Primary Care Unavailable JOEL ALSTON Attending Unavailable FURLONG, ROBERT G Referring Unavailable FURLONG, ROBERT G Primary Care Unavailable JOEL ALSTON Attending Unavailable FURLONG, ROBERT G Referring Unavailable FURLONG, ROBERT G Primary Care Unavailable FURLONG, ROBERT G Attending Unavailable FURLONG, ROBERT G Referring Unavailable FURLONG, ROBERT G Primary Care Unavailable JOEL ALSTON Attending Unavailable FURLONG, ROBERT G Referring Unavailable [...] Primary Care Unavailable Unavailable Primary Care Provider UnavailANDRIA Melton Attending Unavailable FURLONG, ROBERT G Referring Unavailable NURIA SANCHEZ Attending Unavailable MARTIN ARANGO Attending Unavailable ROSHAN HOLLOWAY Attending Unavailable FURLONG, ROBERT G Referring Unavailable MARTIN ARANGO Attending Unavailable MARTIN ARANGO Attending Unavailable MARTIN ARANGO Referring Unavailable MARTIN ARANGO Attending Unavailable MARTIN ARANGO Attending Unavailable SANCHEZNURIA Attending Unavailable BROWNMARTIN Attending Unavailable BROWN, MARTIN Jerome Referring Unavailable BROWN, MARTIN Jerome Attending Unavailable BROWN, MARTIN Jerome Attending Unavailable TATTERSИВАН WU Attending Unavailable FURLONG, ROBERT G Referring Unavailable RITCHIE KIRBY Attending Unavailab le KAYLAH CORONADO Attending Unavailable FURLONG, ROBERT G Referring Unavailable SANCHEZNURIA Attending Unavailable KELBLEYCATY Attending Unavailable FURLONG, ROBERT G Referring Unavailable KELBLEYCATY Attending Unavailable FURLONG, ROBERT G Referring Unavailable BRANDRIA BERNAL Attending Unavailable FURLONG, ROBERT G Referring Unavailable BROWN, MARTIN Jerome Attending Unavailable BLACKSTONKAYLAH Attending Unavailable FURLONG, ROBERT G Referring Unavailable KELBLEYCATY Attending Unavailable FURLONG, ROBERT G Referring Unavailable FRENCH LEVINE Attending Unavailable ANA CORONADO Attending Unavailable KURT CHAPMAN Referring Unavailable BLACKSPHILL, ANA Attending Unavailable KURT CHAPMAN Referring Unavailable BLACKSTONANA Attending Unavailable KURT CHAPMAN Referring Unavailable BLACKSTON, ANA Attending Unavailable KURT CHAPMAN Referring Unavailable MARTIN ARANGO Attending Unavailable OBITERSИВАН WU Attending Unavailable FURLONG, ROBERT G Referring Unavailable TATTERSALLИВАН Attending Unavailable FURLONG, ROBERT G Referring Unavailable BROWNMARTIN Attending Unavailable ABNERFRENCH Attending Unavailable FURLONG, ROBERT G Referring Unavailable APLINGCJ Attending Unavailable MARTIN ARANGO Attending Unavailable APLINGCJ Attending Unavailable PASTORA ALCANTARA Attending Unavailable BLACKSTONKAYLAH Attending Unavailable APLINGCJ Referring Unavailable LEAHPASTORA NAGY Attending Unavailable BROWNMARTIN Attending Unavailable BROWNMARTIN Referring Unavailable SANCHEZNURIA Attending Unavailable BROWNMARTIN Attending Unavailable BROWNJUAN CARLOSMARTIN A Attending Unavailable FURLONG, ROBERT G Primary Care Unavailable PHIL NASH Attending Unavailable PHIL NASH Referring Unavailable FURLONG, ROBERT G Primary Care Unavailable ALECIA, JOEL L Referring Unavailable FURLONG, ROBERT G Primary Care Unavailable KURT CHAPMAN Attending Unavailable KURT CHAPMAN Referring Unavailable FURLONG, ROBERT G Primary Care Unavailable ALECIA, JOEL L Referring Unavailable FURLONG, ROBERT G Primary Care [...] Unavailable FURLONG, ROBERT G Primary Care Unavailable NATALIIA SIMPSON Attending Unavailable FURLONG, ROBERT G Referring Unavailable FURLONG, ROBERT G Primary Care Unavailable JACQUELIN NICOLEADER Referring Unavailable FURLONG, ROBERT G Primary Care Unavailable FURLONG, ROBERT G Primary Care Unavailable FURLONG, ROBERT G Primary Care Unavailable KURT BALDWIN Attending Unavailable LAN PACHECO Attending Unavailable Carmina ALCANTARA Referring Unavailable Allergies Allergy Classification Reported Allergen(s) Allergy Type Date of Onset Reaction(s) Facility (20 sources) Acetaminophen / HYDROcodone; Translations: [acetaminophen-hydr ocodone] Drug Allergy Unknown (qualifier value), rash [facility] (20 sources) Adhesive Tape; Translations: [Tape] Drug allergy Eruption of skin (disorder), rash [facility] (20 sources) Amitriptyline; Translations: [amitriptyline] Drug Allergy 013 Vomiting (disorder), Abnormal Behavior, Mental Status Change [facility] (20 sources) Amoxicillin; Translations: [amoxicillin] Drug Allergy 015 Vomiting [facility] (20 sources) Amoxicillin / Clavulanate; Translations: [amoxicillin-clavul anate] Drug Allergy 017 Vomiting (disorder), GI Disturbance [facility] (20 sources) atomoxetine; Translations: [atomoxetine] Drug Allergy 011 Palpitations, Other (See Comments) [facility] Comment on above: (atomoxetine) (20 sources) buPROPion; Translations: [bupropion] Drug Allergy 011 Palpitations [facility] (20 sources) Codeine; Translations: [codeine] Drug Allergy Eruption of skin (disorder), Hives, Rash [facility] (20 sources) Dexamethasone; Translations: [dexamethasone] Drug Allergy 012 Menopausal flushing (finding), Unknown [facility] Comment on above: (dexamethasone) (20 sources) Doxycycline; Translations: [doxycycline] Drug Allergy GI Disturbance, Palpitations, Other: See Comments [facility] (20 sources) DULoxetine; Translations: [duloxetine] Drug Allergy 019 Unknown (qualifier value), hives [facility] (20 sources) fluticasone; Translations: [fluticasone] Drug Allergy 014 Unknown (qualifier value) [facility] (20 sources) fluticasone / salmeterol; Translations: [fluticasone-salmet su] Drug Allergy 013 Eruption of skin (disorder), rash, Itching, Palpitations, Unknown [facility] (20 sources) gabapentin; Translations: [gabapentin] Drug Allergy 019 Unknown (qualifier value) [facility] (20 sources) Ibuprofen; Translations: [ibuprofen] Drug Allergy 012 Eruption of skin (disorder), rash, GI Disturbance, Nausea And Vomiting [facility] (20 sources) Ketorolac; Translations: [ketorolac] Drug Allergy 011 Unknown (qualifier value), Other: See Comments [facility] (20 sources) meloxicam; Translations: [meloxicam] Drug Allergy 019 Unknown (qualifier value) [facility] (20 sources) Methadone; Translations: [methadone] Drug Allergy 011 Vomiting (disorder), GI Disturbance, Nausea And Vomiting, Vomiting [facility] (20 sources) milnacipran; Translations: [milnacipran] Drug Allergy 022 Unknown (qualifier value), Other (See Comments) [facility] (20 sources) moxifloxacin; Translations: [moxifloxacin] Drug Allergy 012 Eruption of skin (disorder), rash, Nausea Only, Nausea [facility] (20 sources) NITROFURANTOIN, MACROCRYSTALS / Nitrofurantoin, Monohydrate; Translations: [nitrofurantoin] Drug Allergy 022 Other (See Comments) [facility] (20 sources) OXcarbazepine; Translations: [oxcarbazepine] Drug Allergy 011 Unknown (qualifier value), GI Disturbance, Palpitations, Other: See Comments [facility] (20 sources) PARoxetine; Translations: [paroxetine] Drug Allergy 023 Unknown (qualifier value), Hives [facility] (20 sources) Penicillins; Translations: [penicillins] Drug allergy 011 Unknown (qualifier value), GI Disturbance, Hives, Other (See Comments), Vomiting [facility] (20 sources) pregabalin; Translations: [pregabalin] Drug Allergy 013 Unknown (qualifier value), Other (See Comments), Palpitations, Mental Status Change [facility] (20 sources) rOPINIRole; Translations: [ropinirole] Drug Allergy 019 Altered mental status [facility] (20 sources) Shellfish; Translations: [shellfish] Drug allergy Eruption of skin (disorder), rash [facility] (20 sources) Sulfamethoxazole / Trimethoprim; Translations: [sulfamethoxazole-t rimethoprim] Drug Allergy 019 Vomiting (disorder), Hives, Vomiting [facility] (20 sources) topiramate; Translations: [topiramate] Drug Allergy 012 Vomiting (disorder), GI Disturbance, Other (See Comments), Unknown [facility] (20 sources) Valproate; Translations: [divalproex sodium] Drug Allergy Alopecia (disorder) [facility] (20 sources) Verapamil; Translations: [verapamil] Drug Allergy 013 Vomiting (disorder), GI Disturbance, GI intolerance, Vomiting [facility] (20 sources) ziprasidone; Translations: [ziprasidone] Drug Allergy 011 Unknown (qualifier value), Palpitations, Other (See Comments) [facility] (6 sources) Adhesive Tape; Translations: [Adhesive tape] Allergy to substance contact dermatitis [facility] (20 sources) Fish Containing Products; Translations: [Fish Containing Products] Allergy to substance 012 Rash [facility] (6 sources) Codeine Drug Allergy rash [facility] Other (6 sources) torodol Propensity to adverse reactions severe abdominal pain [facility] Other (20 sources) Methocarbamol; Translations: [methocarbamol] Drug Allergy 023 Unknown (qualifier value), Other (See Comments) [facility] (2 sources) Acetaminophen / HYDROcodone Drug Allergy [facility] (2 sources) Amitriptyline Drug Allergy [facility] (2 sources) Amoxicillin / Clavulanate Drug Allergy [facility] (3 sources) atomoxetine; Translations: [Strattera] Drug Allergy [facility] (1 source) atorvastatin Drug Allergy [facility] (2 sources) buPROPion Drug Allergy [facility] (2 sources) carBAMazepine Drug Allergy [facility] (1 source) Clindamycin Drug Allergy 016 [facility] (2 sources) Codeine Drug Allergy [facility] (3 sources) Dexamethasone; Translations: [Decadron] Drug Allergy [facility] (2 sources) Diclofenac Drug Allergy 015 [facility] (2 sources) Doxycycline Drug Allergy [facility] (2 sources) DULoxetine Drug Allergy [facility] (20 sources) Fish derivative; Translations: [FISH DERIVED] Drug allergy (disorder) Hives [facility] (2 sources) Fluorometholone Drug Allergy [facility] (2 sources) fluticasone / salmeterol Drug Allergy [facility] (2 sources) gabapentin Drug Allergy [facility] (2 sources) hydrOXYzine Drug Allergy [facility] (2 sources) Ibuprofen Drug Allergy [facility] (2 sources) Ibuprofen Drug Allergy [facility] (1 source) Ketorolac Drug Allergy [facility] (2 sources) Ketorolac Drug Allergy [facility] (2 sources) meloxicam Drug Allergy [facility] (2 sources) Methadone Drug Allergy [facility] (2 sources) Methocarbamol Drug Allergy [facility] (2 sources) milnacipran Drug Allergy [facility] (2 sources) moxifloxacin Drug Allergy [facility] (2 sources) Nitrofurantoin Drug Allergy [facility] (2 sources) OXcarbazepine Drug Allergy [facility] (2 sources) PARoxetine Drug Allergy [facility] (3 sources) pregabalin; Translations: [Lyrica] Drug Allergy [facility] (2 sources) rOPINIRole Drug Allergy [facility] (1 source) Sulfonamides (Antibiotic) Drug allergy (disorder) [facility] (2 sources) topiramate Drug Allergy [facility] (2 sources) Valproate Drug Allergy [facility] (1 source) Verapamil Drug Allergy [facility] (3 sources) ziprasidone; Translations: [Geodon] Drug Allergy [facility] (17 sources) Adhesive agent; Translations: [ADHESIVE] Propensity to adverse reactions to drug [facility] Work Phone: (20 sources) atomoxetine; Translations: [ATOMOXETINE HCL] Drug Allergy GI Disturbance, Palpitations, Other: See Comments [facility] (20 sources) buPROPion; Translations: [BUPROPION HCL] Drug Allergy GI Disturbance, Palpitations, Other: See Comments [facility] (20 sources) DULoxetine; Translations: [DULOXETINE HCL] Drug Allergy [facility] (20 sources) Eicosapentaenoate; Translations: [EICOSAPENTAENOIC ACID] Drug Allergy [facility] (13 sources) Ketorolac; Translations: [KETOROLAC TROMETHAMINE] Drug Allergy Other (See Comments) [facility] (16 sources) moxifloxacin; Translations: [MOXIFLOXACIN-SOD.C HLORIDE(ISO)] Drug Allergy Nausea, Unknown [facility] (13 sources) PARoxetine; Translations: [PAROXETINE HCL] Drug Allergy [facility] (20 sources) Shellfish; Translations: [SHELLFISH CONTAINING PRODUCTS] Propensity to adverse reactions to drug [facility] (20 sources) Shellfish; Translations: [shellfish derived] Propensity to adverse reactions to drug [facility] (20 sources) Sulfamethoxazole; Translations: [SULFAMETHOXAZOLE] Drug Allergy Other (See Comments) [facility] (20 sources) Valproate; Translations: [DIVALPROEX] Drug Allergy [facility] (20 sources) Valproate; Translations: [VALPROIC ACID] Drug Allergy [facility] (20 sources) Verapamil; Translations: [VERAPAMIL HCL] Drug Allergy [facility] (20 sources) ziprasidone; Translations: [ZIPRASIDONE HCL] Drug Allergy Palpitations, Hives, Other: See Comments [facility] (20 sources) Adhesive Tape-Silicones; Translations: [ADHESIVE TAPE-SILICONES] Propensity to adverse reactions to drug Other (See Comments), Rash [facility] (10 sources) atomoxetine Drug Allergy Palpitations [facility] (10 sources) Ketorolac Propensity to adverse reactions 015 [facility] (10 sources) Ketorolac trometamol Allergy to substance 011 Hives [facility] (10 sources) meloxicam Drug Allergy [facility] (10 sources) Methocarbamol Drug Allergy 023 [facility] (10 sources) milnacipran Drug Allergy Hives [facility] (10 sources) Nitrofurantoin Drug Allergy Hives, Rash [facility] (10 sources) Oxcarbazepine Allergy to substance 011 GI intolerance, Hives, Palpitations [facility] (10 sources) Pregabalin Allergy to substance 013 Palpitations [facility] (10 sources) Shellfish Allergy to substance 023 Rash [facility] (10 sources) Sulfamethoxazole Propensity to adverse reactions 022 [facility] (10 sources) Topiramate Allergy to substance 023 GI intolerance [facility] (10 sources) Valproate Drug Allergy [facility] (10 sources) ziprasidone Drug Allergy 011 Palpitations [facility] (13 sources) Amoxicillin-Pot Clavulanate; Translations: [AMOXICILLIN-POT CLAVULANATE] Drug Intolerance 011 Nausea And Vomiting [facility] (10 sources) Aloe-Sodium Chloride Propensity to adverse reactions 024 [facility] (10 sources) Fish-Derived Products Drug Intolerance [facility] (10 sources) Moxifloxacin Hcl In Nacl Drug Intolerance [facility] (11 sources) Other; Translations: [OTHER] Propensity to adverse reactions Hives [facility] (10 sources) Wound Dressing Adhesive Drug Allergy [facility] (20 sources) Aloe vera preparation; Translations: [SODIUM CHLORIDE-ALOE VERA] Drug Allergy [facility] (1 source) Fish - dietary; Translations: [Fish] Food allergy (disorder) [facility] (2 sources) Acetaminophen; Translations: [acetaminophen] Drug Allergy [facility] (2 sources) Clavulanate; Translations: [clavulanic acid] Drug Allergy vomiting [facility] (2 sources) HYDROcodone; Translations: [hydrocodone] Drug Allergy [facility] (2 sources) salmeterol; Translations: [salmeterol] Drug Allergy [facility] (2 sources) Trimethoprim; Translations: [trimethoprim] Drug Allergy vomiting [facility] (2 sources) Valproate; Translations: [divalproex sodium] Drug Allergy hair loss [facility] (1 source) Adhesive agent Drug allergy (disorder) [facility] (1 source) Amitriptyline Drug Allergy [facility] (1 source) Amoxicillin Drug Allergy [facility] (1 source) atomoxetine Drug Allergy [facility] (1 source) buPROPion Drug Allergy [facility] (1 source) Codeine Drug Allergy [facility] (1 source) Dexamethasone Drug Allergy [facility] (1 source) Doxycycline Drug Allergy [facility] (1 source) DULoxetine Drug Allergy [facility] (1 source) fluticasone Drug Allergy [facility] (1 source) gabapentin Drug Allergy [facility] (1 source) Ibuprofen Drug Allergy [facility] (1 source) Ketorolac Drug Allergy [facility] (1 source) meloxicam Drug Allergy [facility] (1 source) Methadone Drug Allergy [facility] (1 source) milnacipran Drug Allergy [facility] (1 source) moxifloxacin Drug Allergy [facility] (1 source) OXcarbazepine Drug Allergy [facility] (1 source) PARoxetine Drug Allergy [facility] (1 source) pregabalin Drug Allergy [facility] (1 source) rOPINIRole Drug Allergy [facility] (1 source) Sulfamethoxazole Drug Allergy [facility] (1 source) topiramate Drug Allergy [facility] (1 source) Verapamil Drug Allergy [facility] (1 source) ziprasidone Drug Allergy [facility] (4 sources) Dexamethasone; Translations: [DEXAMETHASONE (PF)] Drug Allergy [facility] (4 sources) Sulfamethoxazole / Trimethoprim; Translations: [SULFAMETHOXAZOLE-T RIMETHOPRIM] Drug Allergy [facility] (4 sources) NITROFURANTOIN MONOHYD/M-CRYST; Translations: [NITROFURANTOIN MONOHYD/M-CRYST] Propensity to adverse reactions to drug (disorder) [facility] (4 sources) FLUTICASONE PROPION-SALMETEROL; Translations: [FLUTICASONE PROPION-SALMETEROL] Propensity to adverse reactions to drug (disorder) [facility] (2 sources) Adhesive Tape Propensity to adverse reactions to substance [facility] (7 sources) Aloe Extract; Translations: [ALOE] Drug Allergy [facility] (3 sources) IODINATED CONTRAST MEDIA; Translations: [IODINATED CONTRAST MEDIA] Propensity to adverse reactions to drug (disorder) 024 Anaphylaxis [facility] Medications Current Medications Medication Drug [...] Blood glucose Start Date: 10/25/21 Status: Ordered [id number] actuat albuterol 0.09 mg/actuat metered dose [...] / ipratropium bromide 0.167 mg/ml inhalation solution (20 sources) Anticholinergic, beta2-Adrenergic Agonist take 3 mL [...] mg oral tablet (20 sources) Benzodiazepine Start: 07-25-2024 take 1 tablet by mouth three times daily as needed for anxiety ALPRAZolam (XANAX) 1 mg tablet Indications: Anxiety TAKE ONE TABLET BY MOUTH THREE TIMES A DAY NEEDED FOR ANXIETY 90 tablet 4 07/25/2024 Active Start: 04-25-2024 End: 07-25-2024 take 1 tablet by mouth three times daily as needed for anxiety ALPRAZolam (XANAX) 1 mg tablet Indications: Anxiety take one tablet by mouth three times a day as needed for anxiety 90 tablet 1 05/27/2024 07/25/2024 Discontinued Start: 11-01-2023 take 1 tablet by colin [...] day(s), # 6 tab(s), Refills(s) 0, Pharmacy: [id number], 163, cm, 10/20/22 10:48:00 EST, Height/Length [...] day(s), # 28 cap(s), Refills(s) 0, Pharmacy: [facility] [id number], 163, cm, 10/29/22 14:56:00 EDT, Height/Length Dosing, 77.3, kg, 10/29/22 14:56:00 EDT, Weight Dosing Start Date: 10/29/22 Stop Date: 11/26/22 Status: Ordered biotin 10 mg oral capsule (10 sources) Start: 04-27-2024 End: 04-22-2025 take 1 [...] 04/27/2024 Active blood-glucose meter,continuo us ([employer]) misc (14 sources) Start: 10-24-2022 blood-glucose meter,continuous ([employer] G[employer]) misc Indications: Type 2 diabetes mellitus without complication, without long-term current use of insulin (CMS-HCC) 1 unit yearly 1 each 10/24/2022 Active Start: 10-24-2022 blood-glucose meter,continuous (DEXCOM 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 60 capsule 2 06/10/2024 Active cetirizine hydrochloride 10 mg oral tablet (20 sources) Histamine-1 Receptor Antagonist Start: 02-24-2015 End: 05-27-2024 take 1 tablet by mouth once daily cetirizine (ZyrTEC) 10 mg tablet take one tablet by mouth once daily 30 tablet 11 05/27/2024 Active take 1 capsule by mo uth once daily in the morning Cetirizine (ZYRTEC) [...] Active clomiPRAMINE hydrochloride 50 mg oral capsule (12 sources) Tricyclic Antidepressant take 1 capsule by [...] daily at bedtime. 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 residence counselor) device (4 sources) Start: 10-24-2022 Continuous Blood Gluc Diesel Engine Assembler (Dexcom G6 residence counselor) device 1 UNIT YEARLY 0 10/24/2022 Active Continuous Blood Gluc Sensor (Dexcom G6 Sensor) misc (4 sources) Start: 01-21-2023 Continuous Blood Gluc Sensor (Dexcom G6 Sensor) misc USE 1 UNIT DIRECTED AND CHANGE EVERY 10 DAYS 0 01/21/2023 Active Continuous Glucose Transmitter (Dexcom G6 transmitter) misc (6 sources) Start: 01-27-2024 Continuous Glucose Transmitter (Dexcom G6 [...] completed) dicyclomine hydrochloride 20 mg oral tablet (17 sources) Anticholinergic Start: 12-02-2023 dicyclomine (Bentyl) 20 [...] 03-27-2024 take 1 capsule by mouth once daily dilTIAZem CD (CARDIZEM CD) 120 mg 24 hr capsule TAKE ONE CAPSULE BY MOUTH ONCE DAILY 30 capsule 11 06/18/2024 Active Start: 07-05-2023 diltiazem CD 1 20 mg/24 hours Cap-ER 120 mg = 1 cap(s), Oral, Daily, # 30 cap(s), Refills(s) 5, Pharmacy: [facility]5, 163, cm, 01/01/24 11:13:00 EDT, Height/Length Dosing, 75.6, kg, 12/31/23 13:01:00 EDT, Weight Dosing Start Date: 01/01/24 Status: Ordered Start: 07-05-2023 End: 06-18-2024 take 1 capsule by mouth every twenty-four hours dilTIAZem CD (CARDIZEM CD) 120 mg 24 hr capsule Take 1 capsule (120 mg total) by mouth. 07/05/2023 06/18/2024 Discontinued diphenhydrAMINE hydrochloride 25 mg oral capsule (20 sources) Histamine-1 Receptor Antagonist Start: 01-02-2023 take 1 capsule by mouth every six hours as needed diphenhydrAMINE (BenadryL) 25 mg capsule Indications: Rash in adult Take 1 capsule (25 mg total) by mouth every 6 (six) hours as needed for itching or allergies. MAY CAUSE DROWSINESS. HOLD hydroxyzine while taking this medication. 15 capsule 01/02/2023 Active [id number] 0.3 ml EPINEPHrine 1 mg/ml auto-injector (2 sources) alpha-Adrenergic Agonist, beta-Adrenergic Agonist, Catecholamine Start: 07-07-2024 EPINEPHrine (EPIPEN) 0.3 mg/0.3 mL auto-injector Indications: Allergic reaction, initial encounter Inject 0.3 mL (0.3 mg total) into the appropriate muscle as needed (As needed for allergic reaction) for up to 1 dose. 1 each 07/07/2024 Active ergocalciferol 1.25 mg oral capsule (20 [...] Date: 10/25/21 Status: Ordered Start: 06-14-2021 take 04184 ug by colin th every week Ergocalciferol (Vitamin D2) Active 75702 MCG PO every week June 14, 2021 [...] day(s), # 90 tab(s), Refills(s) 0, Pharmacy: [facility], 163, cm, 10/29/22 14:56:00 EDT, Height/Length Dosing, 77.3, kg, 10/29/22 14:56:00 EDT, Weight Dosing Start Date: 10/29/22 Stop Date: 01/27/23 Status: Ordered flash glucose scanning reader (FREESTYLE LUCERO 14 DAY READER) misc (13 sources) Start: 02-28-2024 flash glucose scanning reader (FREESTYLE LUCERO 14 DAY READER) misc 1 Unit by miscellaneous route in the morning. 1 each 02/28/2024 Active flash glucose sensor (FREESTYLE LUCERO 14 DAY SENSOR) kit (13 sources) Start: 02-27-2024 flash glucose sensor (FREESTYLE [...] 2021 12:00am glycopyrrolate 2 mg oral tablet (6 sources) Start: 03-27-2024 take 1 tablet by mouth [...] Status: Ordered take 1 tablet by colin every six hours as needed hydrOXYzine HCl [...] Active imipramine hydrochloride 25 mg oral tablet (13 sources) Tricyclic Antidepressant Start: 05-18-2024 take 1 tablet by mouth once daily imipramine (TOFRANIL) 25 mg tablet Indications: Fibromyalgia Take 1 tablet (25 mg total) by mouth nightly. 30 tablet 5 05/18/2024 Active Injovy (3 sources) Start: 12-07-2021 Injovy Active 1 syringe IM every month December 07, 2021 12:00am isopropyl alcohol 0.7 ml/ml medicated pad (19 sources) Start: 05-06-2024 alcohol swabs (ALCOHOL PREP PADS) pads, medicated Indications: Type 2 diabetes mellitus with hyperglycemia, without long-term current use of insulin ([facility]) Apply 1 Pad topically every 14 (fourteen) days. Clean area prior to placing sensor 40 each 05/06/2024 Active Start: 03-10-2024 Alcohol Swabs (Global Alcohol Prep Ease) 70 % pads APPLY 1 PAD TOPICALLY EVERY 14 (FOURTEEN) DAYS. 03/10/2024 Active ammonium lactate 120 mg/ml topical lotion (20 sources) Start: 10-22-2022 End: 06-27-2024 ammonium lactate (LAC-HYDRIN) 12 % lotion Apply topically 2 (two) times a day. 400 g 10/22/2022 Active lemborexant 5 mg oral tablet (14 sources) Start: 05-18-2024 End: 07-27-2024 lemborexant 5 mg tablet Indications: Fibromyalgia One tab at bed time 30 tablet 5 07/27/2024 Active lidocaine 0.05 mg/mg medicated patch (20 sources) Antiarrhythmic, Amide Local Anesthetic Start: 01-31-2024 [...] (20 sources) Opioid Agonist Start: 12-20-2022 End: 05-28-2024 take 1 capsule by mouth every twenty-four hours loperamide (IMODIUM) 2 mg capsule TAKE 2 CAPSULES BY MOUTH AFTER 1ST LOOSE STOOL AND 1 CAPSULE AFTER EACH NEXT BOWEL MOVEMENT; DO NOT EXCEED 16MG (8 CAPSULES) IN 24 HOURS 20 capsule 1 05/28/2024 Active Start: 10-29-2022 End: 11-28-2022 Imodium 2 mg oral capsule 2 mg = 1 cap(s), Oral, q6hr, PRN as needed for loose stool, not to exceed 8 capsules, or 16 mg, in 24 hours, X 30 day(s), # 120 cap(s), Refills(s) 0, Pharmacy: [facility], 163, cm, 10/29/22 14:56:00 [...] stool, # 120 tab(s), Refills(s) 6, Pharmacy: [facility]5, 162, cm, 03/30/20 10:05:00 EDT, [...] mononeuropathy, without long-term current use of insulin ([facility]) TAKE 1 TABLET (500 MG TOTAL) BY MOUTH DAILY WITH BREAKFAST. 30 tablet 11 04/25/2024 Active Start: 05-06-2023 End: 10-30-2023 take 1 tablet by mouth once daily at breakfast metFORMIN (GLUCOPHAGE) 500 mg tablet Indications: Type 2 diabetes mellitus with diabetic mononeuropathy, without long-term current use of insulin (CMS-HCC) TAKE 1 TABLET (500 MG TOTAL) BY MOUTH DAILY WITH BREAKFAST. 30 tablet 11 04/25/2024 Active Start: 09-20-2022 take 1 tablet by [...] THE EVENING 30 tablet 11 03/21/2024 Active kwqotevx-gwhy-FM-c alcium &mins (THERAGRAN-M) 9 mg iron-400 mcg tablet (18 sources) ehvhjxuv-yuhp-DU -c alcium &mins (THERAGRAN-M) 9 mg iron-400 mcg tablet Take 1 tablet by mouth in the morning. Active lhbwyrcz-khnl-WS -calcium &mins (THERAGRAN-M) 9 mg iron-400 mcg [...] daily, # 30 tab(s), Refills(s) 0, Pharmacy: [facility], 163, cm, 03/05/24 15:26:00 EDT, Height/Length Dosing, 72.8, kg, 03/05/24 15:26:00 EDT, Weight Dosing Start Date: 03/05/24 Status: Ordered naratriptan 2.5 mg oral tablet (20 sources) Serotonin-1b and Serotonin-1d Receptor Agonist Start: 10-12-2019 naratriptan 2.5 mg Tab 2.5 mg = 1 tab(s), Oral, As Directed, PRN Migraine headache, # 9 tab(s), Refills(s) 0 Start Date: 10/12/19 Status: Ordered nebulizer accessories mis (20 sources) Start: 01-25-2023 nebulizer accessories [facility] Indications: Chronic obstructive pulmonary disease, unspecified COPD type (CMS-HCC) 1 Tube by inhal. via small vol.nebulizer route every 6 (six) months. 1 each 1 01/25/2023 Active nebulizers [facility] (20 sources) Start: 01-25-2023 nebulizers [facility] Indications: Chronic obstructive pulmonary disease, unspecified COPD [...] 0 Start Date: 07/10/21 Status: Ordered nystatin 496058 unt/ml oral suspension (20 sources) Polyene Antifungal Start: 06-15-2024 End: 06-20-2024 nystatin (MYCOSTATIN) 100,000 unit/mL suspension Take 5 mL (500,000 Units total) by mouth in the morning and 5 mL (500,000 Units total) at noon and 5 mL (500,000 Units total) in the evening and 5 mL (500,000 Units total) before bedtime. Do all this for 5 days. 100 mL 06/15/2024 06/20/2024 Active Start: 03-24-2024 take 5 mL by mouth f our times daily at bedtime nystatin (Mycostatin) 087977 UNIT/ML suspension TAKE 5ML BY MOUTH FOUR TIMES A DAY (MORNING, NOON, EVENING, BEDTIME) FOR 5 DAYS. 03/24/2024 Active Start: 06-27-2023 End: 08-18-2023 apply 15 g topically twice daily nystatin (MYCOSTATIN) cream APPLY TO AFFECTED AREA VIA TOPICAL ROUTE TWICE A DAY 15 g 08/18/2023 Active Start: 06-18-2023 End: 08-23-2023 nystatin (Mycostatin) 345007 UNIT/ML suspension TAKE 5ML FOUR TIMES A DAY IN AM, NOON, EVENING, AND AT BEDTIME FOR 7 DAYS 0 06/18/2023 Active nystatin 133079 unt/ml / triamcinolone acetonide 1 mg/ml topical [...] 1 capsule every day by oral route. 08/31/2022 Active take 1 capsule by [facility] once daily PriLOSEC 40 MG 1 capsule [...] Date: 09/20/22 Status: Ordered polyethylene glycol 3350 083709 mg / potassium chloride 1480 mg / sodium bicarbonate 5720 mg / sodium chloride 87081 mg powder for oral solution (11 sources) [...] vomiting, # 90 tab(s), Refills(s) 0, Pharmacy: [facility]5, 162, cm, 05/15/22 13:20:00 EDT, [...] Daily, # 30 tab(s), Refills(s) 5, Pharmacy: [facility], 163, cm, 04/09/22 14:41:00 EDT, [...] U Active zonisamide 25 mg oral capsule (6 sources) Anti-epilepti c Agent Start: 05-11-2024 End: 05-11-2025 [...] citrate 100 mg extended release oral tablet (18 sources) Muscle Relaxant Start: 05-18-2024 End: 07-27-2024 take 1 tablet by mouth in the morning, then take 1 tablet by mouth every twelve hours in the evening orphenadrine (NORFLEX) 100 mg 12 hr tablet Indications: Fibromyalgia Take 1 tablet (100 mg total) by mouth in the morning. One tab at 8 PM. 30 tablet 2 07/27/2024 07/27/2024 Discontinued (Reorder) Start: 06-14-2021 End: 12-07-2021 take 100 mg [...] (acquired), right foot] Onset: 3 11-12-2022 Chronic Acquired foot deformities (2 sources) Acquired deformity of toe of right foot; Translations: [Acquired deformities of toe(s), unspecified, right foot] 06-18-2024 Episodic Acute myocardial infarction (17 sources) Myocardial infarction; Translations: [Acute myocardial infarction, unspecified] Onset: 4 11-16-2022 Chronic Comment on above: 2004 Administrative/social admission (1 source) Encounter for issue of repeat prescription; Translations: [ENC FOR ISSUE REPEAT PRESCRIPTION] Onset: 3 Episodic Allergic reactions (1 source) Allergy, unspecified, initial encounter; Translations: [Allergy, unspecified, initial encounter] Onset: 4 Episodic Anxiety disorders (20 sources) Agoraphobia; Translations: [...] 05-09-2022 Chronic Diseases of white blood cells (20 [...] esophagus] Onset: 4 01-23-2020 Chronic Esophageal disorders (14 sources) Dilatation of esophagus; Translations: [Dilatation of [...] Chronic Immunizations and screening for infectious disease (14 sources) Other specified abnormal immunological findings in [...] Translations: [Candidal stomatitis] Onset: 4 08-16-2023 Episodic Nonspecific chest pain (1 source) Chest pain, unspecified; Translations: [Chest pain, unspecified] Onset: 4 Episodic Osteoarthritis (20 sources) Degenerative joint disease involving multiple joints; Translations: [Osteoarthritis] Onset: 4 09-11-2018 Chronic Osteoporosis (20 sources) Osteoporosis; Translations: [Age-related osteoporosis without current pathological fracture] Onset: 3 11-16-2022 Chronic Other acquired deformities (20 sources) Contracture of joint of right ankle; Translations: [Contracture, right ankle] Onset: 3 06-06-2023 Chronic Other aftercare (1 source) 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; Translations: [OTH INTERMEDIATE CURRENT DRUG THERAPY] Onset: 3 Episodic Other aftercare (4 sources) Encounter for change or removal of surgical wound dressing; Translations: [ENC CHG/REMOVAL SURG WOUND DRSG] Onset: 3 Episodic Other and ill-defined heart disease (20 sources) Diastolic dysfunction; Translations: [Heart disease, unspecified] Onset: 4 03-30-2024 Chronic Other and ill-defined heart disease (3 sources) Heart disease, unspecified Chronic Other bone disease and musculoskeletal deformities (20 sources) Osteochondritis dissecans of right ankle; Translations: [Osteochondritis dissecans, right ankle and joints of right foot] Onset: 2 05-21-2022 Chronic Other connective tissue disease (20 sources) Fibromyalgia; [...] diseases of bladder and urethra (20 sources) Overactive bladder; Translations: [Overactive bladder] Onset: [...] 3 07-08-2023 Chronic Other nervous system disorders (19 sources) Lesion of left ulnar nerve; Translations: [Lesion of ulnar nerve, left upper limb] Onset: 4 04-30-2024 Chronic Other nervous system disorders (19 sources) Carpal tunnel syndrome; Translations: [Carpal tunnel syndrome, unspecified upper limb] Onset: 4 04-30-2024 Chronic Other nervous system disorders (7 sources) Lesion of ulnar nerve, bilateral upper limbs; Translations: [Lesion of ulnar nerve] Onset: 3 07-08-2023 Chronic Other nervous system disorders (3 sources) Lesion of ulnar nerve, left upper limb; Translations: [Lesion of ulnar nerve, left upper limb] Onset: 4 Chronic Other nervous system disorders (1 source) Lesion of ulnar nerve, right upper limb; Translations: [Lesion of ulnar nerve, right upper limb] Onset: 4 Chronic Other nervous system disorders (2 sources) Carpal tunnel syndrome, left upper limb; Translations: [Carpal tunnel syndrome, left upper limb] Onset: 4 Chronic Other non-traumatic joint disorders (3 sources) Pain in unspecified joint; Translations: [Pain in unspecified joint] Onset: 4 Episodic Other non-traumatic joint disorders (13 sources) Pain in left knee; Translations: [Pain [...] 3 Episodic Residual codes; unclassified (1 source) Past [...] (1 source) Pain medication/ discharged from pain [facility]. Onset: 4 Unclassified (1 source) Pre-op Exam [...] 3 04-28-2018 Episodic Fluid and electrolyte disorders (20 sources) Hyponatremia; [...] Onset: 4 Episodic Mood disorders (20 sources) Mood disorders Onset: 3 Resolved: 4 [...] Episodic Other connective tissue disease (20 sources) Myofascial pain syndrome; Translations: [Myalgia, other site] Onset: 4 07-01-2023 Episodic Other connective tissue disease (19 sources) Enthesopathy of elbow region; Translations: [Other [...] Translations: [ASYMPTOMATIC MENOPAUSAL STATE] Onset: 2 Episodic Residual codes; unclassified (20 sources) History of nasal sinus surgery; Translations: [Other specified postprocedural states] Onset: 4 03-30-2024 Episodic Screening and history of mental health [...] [LOW BACK PAIN, UNSPECIFIED] Onset: 2 Unclassified (20 sources) Onset: 3 07-10-2023 Results Test Name Value Interpretation Reference Range Facility [id number] 07-27-2024 [id number] SURGERY DATE: 4 Medications to take Morning of surgery: Carvedilol Diltiazem Abilify Solifenacin May use inhaler Medications to hold Morning of surgery: Hold all other meds on 12/16 am Medications to hold 5-7 days prior to surgery: NSAIDs: Vitamins and Supplements: IF YOU ARE GOING HOME AFTER YOUR SURGERY OR PROCEDURE, FOR YOUR SAFETY, YOUR SURGERY WILL BE CANCELLED IF BOTH OF THE FOLLOWING ARE NOT AVAILABLE: An adult delivery driver/customer service over the age of 18, that can receive information about your care after surgery, and drive you home. A responsible adult to stay with you for 24 hours in case of an emergency. Can be same as above. The highest risk of complications is within the first 24 hours after sedation/anesthesia. Nothing to eat or drink after midnight the night before surgery. This includes gum, candy, mints, and lozenges. No alcohol, marijuana, or tobacco products including vaping for 24 hours. Please brush your teeth; don't swallow the toothpaste or water. If you use dentures, wear them but do not use paste. Please leave any other removable dental hardware at home. Do not put in contact lenses. Do not wear perfume, make-up, nail azeri, or lotions on the day of your surgery or procedure. Follow skin-prep/wipe instructions as below if required. Bring with you: *Insurance card *Photo ID *Medication list *Co-pay for visit/prescriptions If applicable: *Rescue inhalers *Green bracelet from lab *CPAP or BiPAP machine, if staying overnight *Any braces, splints, or equipment ordered preoperatively *Remote controls for implanted devices Leave at home: *Purse/Wallet/Spencer- unless needed for co-pay *Cell phone (can leave with family/friend or place in locker if needed) *Jewelry (including piercings and wedding bands) *If not possible, ask the person who is waiting with you to keep them Children under the age of 12 will not be allowed into patient care areas. We will call you between 3pm and 4pm the day before your surgery to give you an arrival time. If you do not receive this call, have any questions, or need to make any changes, please call [phone]. Notify your surgeon if you develop any illness such as a cold, cough, fever, sore throat or vomiting between now and your surgery. Thank you for entrusting us with your care. [facility] Surgical Services Team Normal [facility] Abstracton 07-23-2024 Abstract [id number] Violet Herrera 1970 F Date Provider Department Center 07/23/2024 803-YAMILETH SAEED MP ORTHO MPORTHO No family history on file [facility] 36on 07-21-2024 36 Below number is the wrong number, the number [phone] is out of order, and spoke with patient and she gave me the same number, called number it rang one time and the message: the number you dialed is not in service at this time and hung up. [facility] 36 Attempted to call keshia jerez to get this report, they sent me to a new number [phone], and the report will be sent over. [facility] 36 Lvm this morning to have it faxed [facility] 36on 07-20-2024 [address] Danica Sanchez to get the office to fax over the EMG results so we have it for the peer to peer [facility] Telephoneon 07-20-2024 Telephone [id number] Violet Herrera 1970 F Date Provider Department Center 07/20/2024 803-CASE, YAMILETH MARIE ORTHO MPORTHO No family history on file [facility] CBC AND AUTO DIFFon 07-07-20 24 ABSOLUTE BASOPHIL 0.0 X10E9/L Normal 0.0-0.2 [facility] Comment on above: Performed By: #### C RT #### [facility] ([id number]) [address] [place] [address], [facility] [address] [place] [address] ABSOLUTE NEUTROPHIL 9.9 X10E9/L High 1.5-6.6 [facility] Comment on above: Performed By: #### C RT #### [facility] ([id number]) [address] [place] [address], [address] [place] [address] Basophils/100 WBC (Bld) 0.3 % Normal [facility] Comment on above: Performed By: #### C RT #### [facility] ([id number]) [address] [place] [address], [facility] [address] [place] [address] Eosinophils (Bld) [#/Vol] 0.2 10*3/uL Normal 0.0-0.4 [facility] Comment on above: Performed By: #### C RT #### [facility] ([id number]) [address], [address] [place] [address] Eosinophils/100 WBC (Bld) 1.6 % Normal [facility] Comment on above: Performed By: #### C RT #### [facility] ([id number]) [address], [address] [place] [address] Erythrocyte distribution width (RBC) [Ratio] 14.9 % Normal 11.5-15.0 [facility] Comment on above: Performed By: #### C RT #### [facility] ([id number]) [address] [place] [address] Hematocrit (Bld) [Volume fraction] 42.7 % Normal 35-47 [facility] Comment on above: Performed By: #### C RT #### [facility] ([id number]) [address] [place] [address] Hemoglobin (Bld) [Mass/Vol] 14.6 g/dL Normal 11.7-15.5 [facility] Comment on above: Performed By: #### C RT #### [facility] ([id number]) [address] [place] [address] Lymphocytes (Bld) [#/Vol] 3.7 10*3/uL High 1.0-3.5 [facility] Comment on above: Performed By: #### C RT #### [facility] ([id number]) [address], [address] [place] [address] Lymphocytes/100 WBC (Bld) 25.3 % Normal [facility] Comment on above: Performed By: #### C RT #### [facility] ([id number]) [address], [address] [place] [address] MCH (RBC) [Entitic mass] 33.6 pg Normal 27-34 [facility] Comment on above: Performed By: #### C RT #### [facility] ([id number]) [address], [address] [place] [address] MCHC (RBC) [Mass/Vol] 34.3 g/dL Normal 32-36 [facility] Comment on above: Performed By: #### C RT #### [facility] ([id number]) [address], [address] [place] [address] MCV (RBC) [Entitic vol] 98 fL Normal 80-100 [facility] Comment on above: Performed By: #### C RT #### [facility] ([id number]) [address], [address] [place] [address] Monocytes (Bld) [#/Vol] 0.9 10*3/uL Normal 0-0.9 [facility] Comment on above: Performed By: #### C RT #### [facility] ([id number]) [address], [address] [place] [address] Monocytes/100 WBC (Bld) 5.8 % Normal [facility] Comment on above: Performed By: #### C RT #### [facility] ([id number]) [address], [address] [place] [address] Neutrophils/100 WBC (Bld) 67.0 % Normal [facility] Comment on above: Performed By: #### C RT #### [facility] ([id number]) [address], [address] [place] [address] Platelet mean volume (Bld) [Entitic vol] 8.5 fL Normal 7-12 [facility] Comment on above: Performed By: #### C RT #### [facility] ([id number]) [address], [address] [place] [address] Platelets (Bld) [#/Vol] 228 10*3/uL Normal 150-450 [facility] Comment on above: Performed By: #### C RT #### [facility] ([id number]) [address], [address] [place] [address] RBC COUNT 4.35 X10E12/L Normal 3.80-5.20 [facility] Comment on above: Performed By: #### C RT #### [facility] ([id number]) [address], [address] [place] [address] WBC (Bld) [#/Vol] 14.8 10*3/uL High 4.0-11.0 [facility] Comment on above: Performed By: #### C RT #### [facility] ([id number]) [address], [address] [place] [address] COMPREHENSIVE METABOLIC PANE Bulmaro 07-07-2024 Albumin [Mass/Vol] 3.9 g/dL Normal 3.2-5.3 [facility] Comment on above: Performed By: #### C RT #### [facility] ([id number]) [address], [address] [place] [address] ALP [Catalytic activity/Vol] 104 U/L Normal 39-130 [facility] Comment on above: Performed By: #### C RT #### [facility] ([id number]) [address], [address] [place] [address] ALT [Catalytic activity/Vol] 27 U/L Normal 0-31 [facility] Comment on above: Performed By: #### C RT #### [facility] ([id number]) [address], [address] [place] [address] Anion gap [Moles/Vol] 10 mmol/L Normal 5-15 [facility] Comment on above: Performed By: #### C RT #### [facility] ([id number]) [address], [address] [place] [address] AST [Catalytic activity/Vol] 19 U/L Normal 0-41 [facility] Comment on above: Performed By: #### C RT #### [facility] ([id number]) [address] [address] [place] [address] Bilirubin [Mass/Vol] 0.6 mg/dL Normal 0.3-1.2 [facility] Comment on above: Performed By: #### C RT #### [facility] ([id number]) [address] [address] [place] [address] Calcium [Mass/Vol] 9.7 mg/dL Normal 8.5-10.5 [facility] Comment on above: Performed By: #### C RT #### [facility] ([id number]) [address] [address] [place] [address] Chloride [Moles/Vol] 101 mmol/L Normal 98-109 [facility] Comment on above: Performed By: #### C RT #### [facility] ([id number]) [address] [address] [place] [address] CO2 [Moles/Vol] 26 mmol/L Normal 22-32 [facility] Comment on above: Performed By: #### C RT #### [facility] ([id number]) [address] [address] [place] [address] Creatinine [Mass/Vol] 0.95 mg/dL Normal 0.40-1.00 [facility] Comment on above: Result Comment: METH OD TRACEABLE TO IDMS STANDARD Performed By: #### C RT #### [facility] ([id number]) [address] [address] [place] [address] GFR/1.73 sq M.predicted among non-blacks MDRD (S/P/Bld) [Vol rate/Area] 72 mL/min/{1.73_m2} Normal >59 [facility] Comment on above: Result Comment: Reported eGFR is based on the CKD-EPI 2021 equation that does not use a race coefficient. Performed By: #### C RT #### [facility] ([id number]) [address] [place] [address] Glucose [Mass/Vol] 152 mg/dL High 65-99 [facility] Comment on above: Performed By: #### C RT #### [facility] ([id number]) [address] [address] [place] [address] Potassium [Moles/Vol] 3.8 mmol/L Normal 3.5-5.0 [facility] Comment on above: Performed By: #### C RT #### [facility] ([id number]) [address] [place] [address] Protein [Mass/Vol] 7.3 g/dL Normal 6.0-8.0 [facility] Comment on above: Performed By: #### C RT #### [facility] ([id number]) [address] [place] [address] Sodium [Moles/Vol] 137 mmol/L Normal 134-146 [facility] Comment on above: Performed By: #### C RT #### [facility] ([id number]) [address] [address] [place] [address] Urea nitrogen [Mass/Vol] 9 mg/dL Normal 5-23 [facility] Comment on above: Performed By: #### C RT #### [facility] ([id number]) [address] [address] [place] [address] CT ABDOMEN AND PELVIS W CONT on 07-07-2024 CT ABDOMEN AND PELVIS W CONT CT ABDOMEN AND PELVIS W CONT CT ABDOMEN AND PELVIS W CONT HISTORY: Epigastric abdominal pain, nausea COMPARISON: CT abdomen pelvis 01/23/2024 TECHNIQUE: CT images of abdomen and pelvis obtained following administration of contrast. Automated exposure control was utilized. All CT scans at this facility use dose modulation, iterative reconstruction, and/or weight based dosing when appropriate to reduce radiation dose to as low as reasonably achievable. CONTRAST: Oral: None IV: 100 mL Omnipaque 300 FINDINGS: LOWER CHEST: Subpleural cystic change within the right greater than left lung base. This is unchanged from prior imaging dated 01/23/2024. LIVER AND BILIARY: Noncirrhotic liver morphology. No definite hepatic mass or lesion. Portal venous system is patent. Surgically absent gallbladder with clips in the gallbladder fossa. PANCREAS: Unremarkable SPLEEN: Unremarkable. ADRENALS: No adrenal mass or lesion. KIDNEYS, URETERS, AND BLADDER: No suspicious renal mass or lesion.. No collecting system dilatation. No renal calculi.. Ureters and bladder are unremarkable. GI TRACT AND PERITONEUM: Surgically absent appendix. Terminal ileum is unremarkable appearing. There is no evidence of bowel obstruction. No pericolonic fat stranding or free intraperitoneal gas. VASCULATURE: Mild/moderate aortic atherosclerotic disease. LYMPH NODES: No enlarged lymph nodes by size criteria. REPRODUCTIVE ORGANS: Sequelae of prior hysterectomy. MUSCULOSKELETAL: No acute abnormalities. IMPRESSION: * No acute CT findings in the abdomen/pelvis. Chronic findings detailed above. Approved by Resident Pastora Baron DO on 07/07/2024 7:30 PM IAlex MD have personally reviewed the image(s) and agree with and/or edited the report Finalized by Alex Varghese MD on 07/07/2024 7:42 PM Normal [facility] Fibrin D-dimer DDU (PPP) [Ma ss/Vol]on 07-07-2024 D DIMER 279 ng/mL DDU High <255 [facility] Comment on above: Result Comment: Results >=255ng/mL DDU: Results may be indicative of the presence of VTE. The use of the Wells score and further diagnostic tests should be considered. Elevated D-Dimer levels can also be associated with DIC, neoplasm, , trauma and liver disease. Elevated levels of rheumatoid factor may lead to an overestimation of the D-Dimer level. Performed By: #### C FELIX, CMP, 3040-3, 71640-2, 19646-0 ####[facility] ([id number])[address] [place] [address] LIPASEon 07-07-2024 Lipase [Catalytic activity/Vol] 23 U/L Normal 17-40 [facility] Comment on above: Performed By: #### C RT #### [facility] ([id number]) [address] [facility] [place] [address] Troponin I.cardiac High sens itivity method [Mass/Vol]on 07-07-2024 1 HOUR TROP I, HIGH SENSITIVITY 3 ng/L Normal <16 [facility] Comment on above: Performed By: #### 8 9579-7 ####[facility] ([id number])[address] [place] [address] TROPONIN I, HIGH SENSITIVITY 3 ng/L Normal <16 [facility] Comment on above: Performed By: #### C BCA, CMP, 3040-3, 03250-5, 12792-6 ####[facility] ([id number])[address] [place] [address] URINE CULTUREon 07-07-2024 Bacteria identified Cx Nom (U) CULTURE RESULTS >100,000 ORGANISMS/mL ESCHERICHIA COLI [ S = SUSCEPTIBLE R = RESISTANT I = INTERMEDIATE S-DO = Susceptible-dose dependent NS = Non-suscceptible NO = No Interpretation ] Organism: ESCHERICHIA COLI Antibiotic Interpretation LONA Status AMPICILLIN S <=2 F AMP/SULBACTAM S <=2/1 F CEFAZOLIN S <=4 F CEFTRIAXONE S <=0.25 F CIPROFLOXACIN R >=4 F GENTAMICIN S <=1 F LEVOFLOXACIN R >=8 F NITROFURANTOIN S <=16 F PIPERACIL/TAZOBACTAM S <=4 F TOBRAMYCIN S <=1 F TRIMETH/SULFAMETHOXAZOLE S <=1/19 F Susceptible [facility] Comment on above: Performed By: #### 6 30-4 ####[facility] ([id number])[address] [facility] [place] [address] URN MACROSCOPIC NURon 2023 BILIRUBIN LISA Negative Normal NEG [facility] Comment on above: Performed By: #### N UM ####[facility] ([id number])[address] [place] [address], [place] [address] BLOOD/HGB LISA Trace Abnormal NEG [facility] Comment on above: Performed By: #### N UM ####[facility] ([id number])[address] [place] [address], [place] [address] GLUCOSE LISA Negative Normal NEG [facility] Comment on above: Performed By: #### N UM ####[facility] ([id number])[address] [place] [address], [place] [address] KETONES LISA Negative Normal NEG [facility] Comment on above: Performed By: #### N UM ####[facility] ([id number])[address] [place] [address], [place] [address] LEUKOCYTE ESTERASE LISA Negative Normal NEG [facility] Comment on above: Performed By: #### N UM ####[facility] ([id number])[address] [place] [address], [place] [address] NITRITE LISA Positive Abnormal NEG [facility] Comment on above: Performed By: #### N UM ####[facility] ([id number])[address] [place] [address], [place] [address] PH LISA 5.0 Normal 5.0-8.5 [facility] Comment on above: Performed By: #### N UM ####[facility] ([id number])[address] [place] [address], [place] [address] PROTEIN LISA 30 mg/dL Abnormal NEG [facility] Comment on above: Performed By: #### N UM ####[facility] ([id number])[address] [place] [address], [place] [address] SPECIFIC GRAVITY LISA <=1.005 Normal 1.003-1.03 5 [facility] Comment on above: Performed By: #### N UM ####[facility] ([id number])[address] [place] [address] UROBILINOGEN LISA 0.2 eu/dL Normal <1.1 [facility] Comment on above: Performed By: #### N UM ####[facility] ([id number])[address] [place] [address] XR CHEST 1 VWon 07-07-2024 XR CHEST 1 VW XR CHEST 1 VW Single view chest XR CHEST 1 VW History: Chest pain Comparison: May 18, 2022 Impression: * No consolidation or pleural fluid. No acute findings. Finalized by Alex Varghese MD on 07/07/2024 8:09 PM Normal [facility] XR KNEE LT 3 VWSon XR KNEE LT 3 VWS XR KNEE LT 3 VWS CLINICAL HISTORY: Pain and injury Comparison: None Views: 3 views FINDINGS: * Decreased medial compartment joint space with subchondral sclerosis. No fracture or dislocation erosion or periostitis. Mild varus angulation. Soft tissues unremarkable. IMPRESSION: * Advancing osteoarthritis mainly affecting medial compartment. Finalized by En Khan MD on 06/28/2024 2:19 PM Normal [facility] Office Visiton 06-16-2024 Follow-up visit [id number] Violet Herrera 1970 F Date Provider Department Center 06/16/2024 [facility] MP[facility] No family history on file Level of Service:30531 NE OFFICE/OUTPATIENT NEW LOW MDM 30 MINUTES Reason for Visit and Comments: Pain [136] New Patient [632] Normal [facility] COMPLETE BLOOD COUNTon 05-04 Erythrocyte distribution width (RBC) [Ratio] 14.1 % Normal 11.5-15.0 [facility] Comment on above: Performed By: #### 1 5205-8, CBC, 1988-5, 3016-3, 34280-8, 19419-0, 67288-8 #### [facility] ([id number]) [address] [place] [address] Hematocrit (Bld) [Volume fraction] 42.9 % Normal 35-47 [facility] Comment on above: Performed By: #### 1 5205-8, CBC, 1987-12, 3016-3, 50627-2, 21066-7, 87350-5 #### [facility] ([id number]) [address] [place] [address] Hemoglobin (Bld) [Mass/Vol] 14.8 g/dL Normal 11.7-15.5 [facility] Comment on above: Performed By: #### 1 5205-8, CBC, 1987-12, 3015-3, 91981-6, 55627-4, 61676-9 #### [facility] ([id number]) [address] [place] [address] MCH (RBC) [Entitic mass] 34.1 pg High 27-34 [facility] Comment on above: Performed By: #### 1 5205-8, CBC, 1987-12, 3, 39082-1, 99204-2, 44824-1 #### [facility] ([id number]) [address] [place] [address] MCHC (RBC) [Mass/Vol] 34.6 g/dL Normal 32-36 [facility] Comment on above: Performed By: #### 1 5205-8, CBC, 1987-12, 3, 22804-5, 87111-9, 25460-4 #### [facility] ([id number]) [address] [place] [address] MCV (RBC) [Entitic vol] 99 fL Normal 80-100 [facility] Comment on above: Performed By: #### 1 5205-8, CBC, 1987-12, 3016-3, 64062-2, 37154-1, 18215-7 #### [facility] ([id number]) [address] [place] [address] Platelet mean volume (Bld) [Entitic vol] 9.1 fL Normal 7-12 [facility] Comment on above: Performed By: #### 1 5205-8, CBC, 1987-12, 3016-3, 68423-3, 38651-1, 96894-1 #### [facility] ([id number]) [address] [place] [address] Platelets (Bld) [#/Vol] 201 10*3/uL Normal 150-450 [facility] Comment on above: Performed By: #### 1 5205-8, CBC, 1987-12, 3016-3, 95942-8, 37779-5, 13509-9 #### [facility] ([id number]) [address] [facility] [address] [place] [address] RBC COUNT 4.36 X10E12/L Normal 3.80-5.20 [facility] Comment on above: Performed By: #### 1 5205-8, CBC, 1987-12, 3016-3, 18661-7, 05129-5, 84633-4 #### [facility] ([id number]) [address] [facility] [address] [place] [address] WBC (Bld) [#/Vol] 13.4 10*3/uL High 4.0-11.0 [facility] Comment on above: Performed By: #### 1 5205-8, CBC, 1987-12, 3016-3, 20961-0, 25673-4, 26109-8 #### [facility] ([id number]) [address] [address] [place] [address] CRP [Mass/Vol]on 05-04-2024 C REACTIVE PROTEIN 0.3 mg/dL Normal 0.000-0.7 4 4 [facility] Comment on above: Performed By: #### C RT #### [facility] ([id number]) [address] [place] [address] ESR Photometric method (Bld) [Velocity]on 05-04-2024 ESR, ERYTHROCYTE SEDIMENTATION RATE 6 mm/h Normal 0-30 [facility] Comment on above: Performed By: #### C RT #### [facility] ([id number]) [address] [facility], [address] [place] [address] Nuclear Ab IA Ql (S)on 05-04 JAIME Screen w/reflex Negative Normal NEG [facility] Comment on above: Result Comment: Testing performed using multiplex flow immunoassay. Eleven different antigens associated with systemic autoimmune diseases (dsDNA,Sm,Sm/ORACLE FUSION MIDDLEWARE DEVELOPER,ORACLE FUSION MIDDLEWARE DEVELOPER,Chromatin, SSA,SSB,Yolanda-1,Scl70,Ribo P,Centromere B) are included in this screening test. Performed By: #### C RT #### [facility] ([id number]) [address] [facility], [address] [address] Rheumatoid factor Nephelomet ry Qn (S)on 05-04-2024 RHEUMATOID FACTOR 22 IU/mL High <20 [facility] Comment on above: Performed By: #### 1 5205-8, CBC, 1988-5, 3016-3, 77527-7, 66289-8, 02380-8 #### [facility] ([id number]) [address] [facility], [address] [place] [address] TSH Qnon 05-04-2024 TSH 1.48 uIU/mL Normal 0.49-4.67 [facility] Comment on above: Performed By: #### C RT #### [facility] ([id number]) [address] [facility] [place] [address] CT lung screening03-31-20 CT lung screening [facility] [address] [address] [address] Scan Report Signed Patient: Keturah Herrera MR#: [id number] : 1970 Acct:[id number] Age/Sex: 53 / F ADM Date: 03/31/24 Loc: [facility] Room: Type: [facility] Attending Dr: CARRILLO Boyd APRN Copies [...] Solo Alvarez M.D.03/31/2024 3:12 PM Dictation Location: [place] [address] Transcribed By: [facility] 03/31/24 1512 Dictated By: Solo Alvarez DO 03/31/24 1509 Signed By: 03/31/24 1512 [facility] MR KNEE LT WO CONTon [...] Oumar Jacobo DO on 03/31/2024 8:03 AM Jean-Pierre Guadarrama MD have personally reviewed the image(s) and agree with and/or edited the report Finalized by Jean-Pierre Silvestre MD on 03/31/2024 10:49 AM Normal [facility] BASIC METABOLIC PANLon 02-25 Anion gap [Moles/Vol] 10 mmol/L Normal 5-15 [facility] Comment on above: Performed By: #### C BCA, BMP #### [facility] ([id number]) [address] [place] [address] Calcium [Mass/Vol] 10.1 mg/dL Normal 8.5-10.5 [facility] Comment on above: Performed By: #### C BCA, BMP #### [facility] ([id number]) [address] [place] [address] Chloride [Moles/Vol] 102 mmol/L Normal 98-109 [facility] Comment on above: Performed By: #### C BCA, BMP #### [facility] ([id number]) [address] [place] [address] CO2 [Moles/Vol] 28 mmol/L Normal 22-32 [facility] Comment on above: Performed By: #### C BCA, BMP #### [facility] ([id number]) [address] [place] [address] Creatinine [Mass/Vol] 0.83 mg/dL Normal 0.40-1.00 [facility] Comment on above: Result Comment: METH OD TRACEABLE TO IDMS STANDARD Performed By: #### C BCA, BMP #### [facility] ([id number]) [address] [place] [address] GFR/1.73 sq M.predicted among non-blacks MDRD (S/P/Bld) [Vol rate/Area] 84 mL/min/{1.73_m2} Normal >59 [facility] Comment on above: Result Comment: Reported eGFR is based on the CKD-EPI 2020 equation that does not use a race coefficient. Performed By: #### C BCA, BMP #### [facility] ([id number]) [address] [place] [address] Glucose [Mass/Vol] 82 mg/dL Normal 65-99 [facility] Comment on above: Performed By: #### C BCA, BMP #### [facility] ([id number]) [address] [place] [address] Potassium [Moles/Vol] 4.1 mmol/L Normal 3.5-5.0 [facility] Comment on above: Performed By: #### Veronica [place], BMP #### [facility] ([id number]) [address] [place] [address] Sodium [Moles/Vol] 140 mmol/L Normal 134-146 [facility] Comment on above: Performed By: #### C FELIX, BMP #### [facility] ([id number]) [address] [place] [address] Urea nitrogen [Mass/Vol] 7 mg/dL Normal 5-23 [facility] Comment on above: Performed By: #### Veronica [place], BMP #### [facility] ([id number]) [address] [place] [address] CBC AND AUTO DIFFon 02-26-20 24 ABSOLUTE BASOPHIL 0.2 X10E9/L Normal 0.0-0.2 [facility] Comment on above: Performed By: #### Veronica [place], BMP #### [facility] ([id number]) [address] [place] [address] Basophils/100 WBC (Bld) 1.0 % Normal [facility] Comment on above: Performed By: #### Veronica [place], BMP #### [facility] ([id number]) [address] [place] [address] Erythrocyte distribution width (RBC) [Ratio] 15.5 % High 11.5-15.0 [facility] Comment on above: Performed By: #### Veronica [place], BMP #### [facility] ([id number]) [address] [place] [address] Hematocrit (Bld) [Volume fraction] 42.7 % Normal 35-47 [facility] Comment on above: Performed By: #### C BCA, BMP #### [facility] ([id number]) [address] [place] [address] Hemoglobin (Bld) [Mass/Vol] 14.5 g/dL Normal 11.7-15.5 [facility] Comment on above: Performed By: #### C BCA, BMP #### [facility] ([id number]) [address] [place] [address] Lymphocytes (Bld) [#/Vol] 3.3 10*3/uL Normal 1.0-3.5 [facility] Comment on above: Performed By: #### C FELIX, BMP #### [facility] ([id number]) [address] [place] [address] Lymphocytes/100 WBC (Bld) 19.0 % Normal [facility] Comment on above: Performed By: #### C FELIX, BMP #### [facility] ([id number]) [address] [place] [address] MCH (RBC) [Entitic mass] 33.0 pg Normal 27-34 [facility] Comment on above: Performed By: #### C BCA, BMP #### [facility] ([id number]) [address] [place] [address] MCHC (RBC) [Mass/Vol] 34.0 g/dL Normal 32-36 [facility] Comment on above: Performed By: #### C BCA, BMP #### [facility] ([id number]) [address] [place] [address] MCV (RBC) [Entitic vol] 97 fL Normal 80-100 [facility] Comment on above: Performed By: #### C BCA, BMP #### [facility] ([id number]) [address] [place] [address] Monocytes (Bld) [#/Vol] 0.7 10*3/uL Normal 0-0.9 [facility] Comment on above: Performed By: #### Veronica [place], BMP #### [facility] ([id number]) [address] [place] [address] Monocytes/100 WBC (Bld) 4.0 % Normal [facility] Comment on above: Performed By: #### Veronica [place], BMP #### [facility] ([id number]) [address] [address] [place] [address] Neutrophils (Bld) [#/Vol] 13.4 10*3/uL High 1.5-6.6 [facility] Comment on above: Performed By: #### Veronica [place], BMP #### [facility] ([id number]) [address] [facility] [address] [place] [address] Platelet mean volume (Bld) [Entitic vol] 9.1 fL Normal 7-12 [facility] Comment on above: Performed By: #### Veronica [place], BMP #### [facility] ([id number]) [address] [place] [address] Platelets (Bld) [#/Vol] 198 10*3/uL Normal 150-450 [facility] Comment on above: Performed By: #### Veronica [place], BMP #### [facility] ([id number]) [address] [place] [address] RBC COUNT 4.40 X10E12/L Normal 3.80-5.20 [facility] Comment on above: Performed By: #### Veronica [place], BMP #### [facility] ([id number]) [address] [address] [place] [address] RBC morphology finding Nom (Bld) NORMAL Normal [facility] Comment on above: Performed By: #### Veronica [place], BMP #### [facility] ([id number]) [address] [place] [address] SEG NEUTROPHIL 76.0 % Normal [facility] Comment on above: Performed By: #### C BCA, BMP #### [facility] ([id number]) [address] [facility] [place] [address] WBC (Bld) [#/Vol] 17.6 10*3/uL High 4.0-11.0 [facility] Comment on above: Performed By: #### C BCA, BMP #### [facility] ([id number]) [address] [facility] [place] [address] Coding Summary.on 02-11-2024 Coding Summary. CVBHMacw57WWu0qAh+PG hlYWQ+PE 4JHAHjL19dbFGdyR1pN5EGGZyICu xzUJGRXFbEDhOoeoDhAV8nuBHvNM Ju IC8+WV9lZMCsPktjaIBho8I7qVN5 M31drr9sLQdhiOV7WTEnGrWbxtms p8mfzGh6NQfoXyuwJiQe ERLozS31MTE4kW30Aw96wSGumRUs r3panQd8KuTpDBHlGSQ3yHnuWDdp h3ZbUBVgJ42huRBlb2F8 HLWecEwezJYbBfPbhST0uA1lSGgf anojf0jjbevmAvf6jv64kOMxy3M0 rLN8W0QhvlL3GVBeuMIk DqhfjNLTzF5lvdvzx2xnkrcxJaZa APFbNHv3HAw5EEEeyDgwMwOkZU93 SQW8VDUzkkAkG0EtDMVx yJnxDnY8i1N7Rk5CV5JINpkxV1AL TUFSWTwvdGQ+GC92cb84P6BfPfpw Pnx4DUPmBLV7xZL9iJ3n GMPvKErir1P2gQU9I6GczyYdxm4a k5qcMOGdLFfsE74pdWRkz7U8MFWm gNJ9TNPcxMbdCdXxbK28 Oyc+IRUnsScvt1MhTeama3rsm9iz rMq2IdsiFIWlozKmxMrsQNV3s2Mk Ur9kURXpcKX5yCF5hJ7a KwMkPyA3YWpoN793JgOheQEuTvck H87qG3FkcJL+NFBgZys9NXAubMqz NA5nC7AkNBRxthcxiPLv lJilKS2fNUVctmgyFOAwoZ6lSVYn A6e0RgYfQbW2VTrqP5VbKLFgpoit Ol29dM7kWfVsUbB1QPlr T3IbhzF1UBBapMRnEFtyQSZ3Q08u g3V6DIHpXDLgDMM1rLV0uN6aiDhu bjogbGVmdDsgdmVydGlj LRuyXNocO515NZAwpImuUyErCDjt ZyBEYXRlOiAgMDYvMjUvMjAyNDwv dGQ+LSKvVWH3fAxhEQWy mGAiLSswIh7taIjfoEqyTZ9vKJSa yenuXYCgnV2eHJCapUXkhKnpPL9u OXAzxycnr333OhSlNDJ6 ZRBvkWLrZ7JdyF8wCtApYDKvOAXb T5MhiJIkCQrjF045YCpcRyQ9ZFLx jvKeT1AfSMDstSrkZgL4 f8U0Ih8Fz6KfjyteT2LrbDXhRlQy JozsDDi7Y6HuFpzttJM+JY34QGEk NV01KDn9TFO8pWymWAik GCIdF2MskD0lRlDvBJIzCPIeUcc+ PHRhYmxlIHdpZHRoPScxMDAlJyBz nGclTP6yAz4vSCBwMOKm eBcgfENwJkMac4mjHZBwNBhqDE4p vThtV1TewMJ0XERrk5m2Ix36V37p E7DglRW+WYTpaRB3lNZ8 qX4uRmUcXaY6FHuzN162JwQzlCXe Rutob0loa8zmrZz2RoP5GOPiccXq qPdnCZO7u9XsGe97N13b OQtqVANnCYYuCSXwZVKszFxtlw5a gI0rLf0+JWXygSX8iCI1oH4hVgHu GhH9TGehE348BjYonOVj Hbifw8rzh2scwHs0UiEyBBQdyuNk mRgxNFU0l0EvCl12C1QjdGrkp3Ab Rbk4zs34dJPwo4F7hIX6 Y3NrZZJwyhwcdWXbyHncXD7vGLJj ssuuJASucX5rNWSxX5w8FaEtRtZ5 OQdsK3EihdL2PXNbwOTv EEUbnXGVzB8jzsvro4kpykttDqYl CIZcJIk7TUa9RRPodSwqShQoZNS3 SbL2NAS7oLFtcT7zdIzl hgievM1iKeg+HUP7lTYcfJMMBX7e OjwvdGQ+IEUpNBT3dPaaBKelZKFq mO7xHUEyO5v4YePtYpZ7 CHxsF5TvgoU2JPKydLIcJIFtkFZA tL8eaiilt6ctxvzpXdGoHGSvSVp8 LRl1DLTpdYhaViKvHZO2 ZiU4TFI9yVLhiX3bqTtvcjlcxQ8v Oyc+QcjaxAyyQLN5DIl9G2RsQiw2 JIIjkUgjRK6aiJOoQKsq Ps8kyJtonBqrOH7tMQPjbvtef992 CgWhn3qxORRkiCVqDVmtIGY8P37v a3N9UGXzEEMyZNI7kNR3 dA9ljWrnmktitVJmaCzcrxTysWrb ICwmUQwlG473ORBizLwmNiUjYGi3 Y8DnUck6EVQblQjbJF9w aWQwULknUl3ucEbmmConTL6pYCFr rdwoq608NmByv7meYRIsmQMxAPyh DOM6F56hx4W1QONdUXCh JJA6hTX8dX6aaXmdzbualDDlxFws nhKuwYdfXIheFBxsZ550VXQriHcw TyKnnZf2Q8LdWfu7BQPi iRqoNZ4fdBMiBRreZb5htQggyKmo CC8zBFNclpllr783LhAqu7bvRVIo iRCiDGxlVSE5D97sw6D4 LIWtDRPiURL3fAJ1yX4zvUygsatu dHUtpWchwrLbpWbzGMozDJozB031 IHRvcDsnPlBhdGllbnQg WWcfJYm2O9OrKzovnHL+FG54QREz VX45lKQddSBxb3pluAw0JaChAARv KGH3nYmkGOiwc7TyDRJf I67qpEMsv4B3JCFbxQbsePUxOpTn lNL7cO2qEGcvhcpov7ocpqklTtyz k8fnup18tT53G92oJOze GEWySFRuPMUrDIZzsFotjp3bnA5c Ii8+SZOmcVU1eVY2yJ0iPSIzSfI1 JBwqG573LkZhePUgZrtu g5rvu6detZe2BvU3FPQbiwBvpIbh HES5i2JuMh29Q76nOQyySYItDIBo APCnHAQhwXyqxs3nsG3o Ii8+BQNfpRE5nNM7vU8oBqEnTuK9 WQboJ010UsIisFKdSewcV74gF0Nf dXA+ORZyCet7RZUufAdy VZ3ogXTgYIkeNj4mHYZ3QgYvLiEi UGvyE1UfZEJzlzyuhylrnNQ5ISMm FPHjtW26Cc6twXwnSSCc hSJZaS2oofwvs3onjfefYgSpWZJb AQd8BCq9MFFujZytCzImMNW6UhO3 MOX7fVSxiN1rgWjelyko aZ9lK3PgWDDhsisfZm98oM3fPxHg UpN9HUcoGxs+VTXJGSVIOUJPUY6L JUZ3Q1ZyOmz5AJRlvAmf IC2jzYKaSHpnWw0mmLlhbYouUN8u ZWEapofoWPVbhH7eXMLnqMBzoRyo GQ6dSOBdlnlvk737VeLu WFG0OBPbuLRsC2BikE7fBiQtBXNz UVYjY1CwnXMsQZeqY601IDywFdW7 JXKhcdWwS2RsUSNxqEjt AeF6b1H3Sr8bJa4bOD9cQTfuGC86 WA69oEUsj7U3wRQ0X1QzASEndstp qxegoCD6AMHhQEEqcX88 kPXaGUbrVj1jp8P6v608LLVxBLWj sL82Ts4bfRelAYJuhUXUsX8ehfsj v9drmsdsUcUgNDQxTMy3 BHq4FOHgsNvaExXyUVX6BiB9UVE0 iPEzmR9kdVgylqdqoM8pZkq+NTMg XRPmzcX2I5WdOwy6UYNp uEqhXL8htHVtLTojSm4vhNvvyQhe WE7tBTOtlvzrXOMgtT8bDRVloXDi eGpqLA3qSYPraqfsm296 SkReXRI4KMHkzNFbX1CwlW8vDfYf TFEkTVErD1DdxJEeJSwmW054KNdl SyD2EZRjvmBgX8VsMJCp kMcuYqX8m4E4Rw0NJU3lsMP1C6Js Arg3WOFpsSzsFF9lgWAuDSssIe3m mPycrZgzNK2iFJKqcdql CNYroD2oLQHnfVSrfXnlJI2qHTDf pfdst723HlQvEWQ7CVXbtNWtB9Zw aE1hUiVoLJMbCJBcL1Di tPJnUVyxB171PZewUcU2TSEcijCv K8AqVYIhfVxiLhX3z3Z3Sp1RcKBy EVRiLD80ZA75IN62V7Qb PjwvdGFibGU+PHRhYmxlIHdpZHRo TIbmUTXbHjQnuMtlYG2sGj9rRCCl OEQsuXvfxKXdVtZbt2rf TUTyGBnmWC5qkVwjC5CiiEO2XEFt h5l7Oe94F27vE2OwpHI+PGNvbCB3 bBW6tZ2cPgJyMiO1ZTne P192QyHgzYIqEglqq0yql1uxyJa8 SlNrSUKvrvQqtDszKAL1g5DwFc69 J05yIJocGXMiMBPpXGUp JXCsyEifdm9agW6mWm0+PGNvbCB3 qCI2zB4wWaLyBcJ7HJcxP993KjWl tLIhJwbuI21zL7CmlGR+ LZPcTcj8GAFngVsfLN3nlLNuXHny Sj8zRFK9ImFlDdGcTVytP4JeWMUd jgswlgyftVG5RXLbJVTj xF96Qh4cuPeoCt9xEZKqJXY8URIq bRBoC2TioU8uXxXfABSbUBDfW9Vq sCVxEIggC183BIdcCpO0 RYCefnZxF5DmURZsaWrgXkB1o2P1 Ls4OoTdbtTQeTZ6nZtAnSWr7C6Ox Efa1QNNaqEufTX4hcYBi ZNjtBv1kxStncPpfSV7gUQKlnhod y619MdDar2nmGXLoeBJwGQguVMM1 X50qs8X5LXYsZIXgKCI3 hLE4gQ2roKahutnmhEZfjWmavtLo hRcrCOgpAVxsY069DTTjsXagOlXG Inb8R2OdRkb6VNUivBwl AA6uvOBnXGyeKm8xuFxdmTxgNN8n BAJqekyan653KnXyf8bvAECqcPSp ZQczYUF0O39hi7H9QQRk WWLsLOC1rWJ9uI2lpIqovfcsuZPg sLjthrRjsQagMClcMKpwG525ZPEp wDcvVd4TSkv3I9LaNyg7 GVBalFkeGX4tkJPyAXqxCa2hyRbr fDgpHH9rWOMmgkubt743EyLer3ua VAYttSAlLLqhAZV8V25a e7G3JONgZQDvFIR6cEC2nQ4pdIwj bjogbGVmdDsgdmVydGljYWwtYWxp V399AYYhiZgtGeHyaTBl OjwvdGQ+NY05mv32I9KiQaadHjv3 DGPmSPD3kSA0sX5rRFPnBJnde0P4 uCM6M9AuqhDjlp9tn7wp BFQyOUghE46yx (more content not included)... Normal [facility] XR KNEE LT 3 VWSon 4 [...] Tamika Joseph MD on 01/31/2024 6:38 PM [facility] Consent for Treatmenton 01-17 Consent for Treatment [id number]#1.00TIFF Normal [facility] Heart and Vascular Office/Cl inic Noteon 01-30-2024 [...] she is doing. Normal coronary arteries in 2019 I do not think this pinching requires [...] estimated pulmonary artery pressure. [1] [facility] with Dr. Beltran on 03/03/2020: CONCLUSIONS: [...] symptoms and it normal coronary arteries in 2019 when last checked. 1. SVT (supraventricular tachycardia) [...] with voice recognition artificial intelligence software, specifically Leiyoo, [employer] and or Couchsurfing. Substitutions may have occurred due to the [...] stress Nausea (more content not included)... Normal [facility] Comment on above: Result Comment: Elec tronically Signed By: En Carmen PA-C\missy\Date and Time Signed: 01/30/24 14:40 EDT Physician Orderon 01-30-2024 Physician Order [id number]#1.00TIFF Normal [facility] MR ELBOW LT WO CONTon 2023 [...] Muir MD on 01/27/2024 11:30 AM Normal [facility] CT ABDOMEN AND PELVIS W CONT [...] Herman MD on 01/24/2024 6:29 AM Normal [facility] CREATININEon 01-20-2024 Creatinine [Mass/Vol] 0.94 mg/dL Normal 0.40-1.00 [facility] Comment on above: Result Comment: METH OD TRACEABLE TO IDMS STANDARD Performed By: #### C RT #### [facility] ([id number]) [address] [place] [address], [facility] [address] [place] [address] GFR/1.73 sq M.predicted among non-blacks MDRD (S/P/Bld) [Vol rate/Area] 73 mL/min/{1.73_m2} Normal >59 [facility] Comment on above: Result Comment: Reported eGFR is based on the CKD-EPI 2020 equation that does not use a race coefficient. Performed By: #### C RT #### [facility] ([id number]) [address] [place] [address], [address] [place] [address] Consent for Treatmenton 12-18 Consent for Treatment [id number]#1.00TIFF Normal [facility] Consultation Noteon 01-15-20 24 Consultation Note [...] 4 week(s), 4 patch(es), Refill(s) 0, [facility], 163, cm, 01/15/24 8:23:00 EDT, Height/Length Dosing, 75.4, kg, 01/15/24 8:23:00 EDT, Weight Dosing Imodium A-D 2 mg oral tablet: See Instructions, PRN Diarrhea, 2 mg Oral BID and 2mg after each loose stool, # 120 tab(s), Refills(s) 6, [facility], 162, cm, 03/30/20 10:05:00 EDT, Height/Length Dosing, 74.2, kg, 03/30/20 10:05:00 EDT, Weight Dosing carvedilol 25 mg Tab: 25 mg = 1 tab(s), Oral, BID, # 180 tab(s), Refills(s) 3, [facility], 163, cm, 07/25/23 10:41:00 EST, Height/Length Dosing, 80.8, kg, 07/25/23 10:47:00 EST, Weight Dosing diltiazem CD 120 mg/24 hours Cap-ER: 120 mg = 1 cap(s), Oral, Daily, # 30 cap(s), Refills(s) 5, Pharmacy: [facility], 163, cm, 01/01/24 11:13:00 EDT, Height/Length [...] Refills(s) 0, Proph (more content not included)... [facility] Comment on above: Result Comment: Elec tronically Signed By: Cady Alva PA-C\.br\Date and Time Signed: 01/15/24 08:43 EDT Office/Clinic Note-Physician on 01-15-2024 Office/Clinic Note-Physician [id number]#1.00TIFF [facility] Patient Correspondenceon Patient Correspondence [id number]#1.00TIFF [facility] Patient Correspondence [id number]#1.00TIFF [facility] Patient History Officeon Patient History Office [id number]#1.00TIFF [facility] Interdisciplinary Note - Soc ial Workeron 01-06-2024 Interdisciplinary Note - Hospital Laboratory Technician Consult for positive depression screen received. SW made a tc to patient and left a message with contact information for patient to call back. SW will remain available. [facility] Consent for Treatmenton 12-17 Consent for Treatment [id number]#1.00TIFF [facility] Consultation Noteon 01-01-20 Consultation Note Patient: JESSIE [...] [facility]. She is going [...] BID, # 180 tab(s), Refills(s) 3, Pharmacy: [facility], 163, cm, 07/25/23 10:41:00 EST, Height/Length Dosing, 80.8, kg, 07/25/23 10:47:00 EST, Weight Dosing diltiazem CD 120 mg/24 hours Cap-ER: 120 mg = 1 cap(s), Oral, Daily, # 30 cap(s), Refills(s) 5, Pharmacy: [facility], 163, cm, 07/05/23 15:45:00 EST, [...] Refills(s) 0 (more content not included)... Normal [facility] Comment on above: Result Comment: Elec tronically Signed By: Artie NORRIS, Cady\.br\Date and Time Signed: 01/01/24 11:24 EDT Lab Reportson 01-01-2024 Lab Reports [id number]#1.00TIFF Normal [facility] Office/Clinic Note-Physician on 01-01-2024 Office/Clinic Note-Physician [id number]#1.00TIFF Normal [facility] Orders Officeon 01-01-2024 Orders Office [id number]#1.00TIFF Normal [facility] Patient Correspondenceon Patient Correspondence [id number]#1.00TIFF Normal [facility] Patient Correspondence [id number]#1.00TIFF Normal [facility] Patient History Officeon Patient History Office [id number]#1.00TIFF Normal [facility] RAD - CT Reporton 01-01-20[address] RAD - CT Report [id number]#1.00TIFF Normal [facility] Ambulatory Visit Summaryon 0 12-31-2023 Ambulatory [...] Cady Alva PA-C Where: [facility] Saturday 1:00 PM EDT With: POLLY MARIANO PA-C Where: [facility] Patient Educationon 12-31-19 Patient Education Urology Urinary [...] stimulation). ? For women, using a medical records assistant to prevent urine leaks. This is a [...] urine. ? (more content not included)... Normal [facility] Urology Office/Clinic Noteon 12-31-2023 Urology Office/Clinic [...] 2,525mL. CT AP wo con 10[place]20/[place] [facility] [place] A few tiny nonobstructing R renal [...] When Contact Information POLLY MARIANO PA-C, URL [address] [place] [address] Additional Instructions: 1 year Patient Education Urinary [...] (01/17/2023), Víctor (more content not included)... Normal [facility] Comment on above: Result Comment: Elec tronically Signed By: POLLY MARIANO PA-C\.br\Date and Time Signed: 12/31/23 13:21 EDT\.br\Electronically Co-Signed By: Violet Bangura\.br\Date and Time Co-Signed: 12/31/23 13:14 EDT CHEMISTRYOrdered By: Jordan Ritchie on 12-11-2023 POC Device SN [id number] 1 Invalid Interpretation Code [facility] Subsection POC User ID [id number] 1 Invalid Interpretation Code [facility] Subsection POC Username FREDIS WEBSTER Invalid Interpretation Code [facility] Subsection Capillary Glucose POCOrdered By: Jordan Sinclair on 12-11-2023 Glucose [Mass/Vol] 154 mg/dL High 55-99 [facility] OC Subsection Comment on above: Performed By: #### [id number] ####[facility] [address] [place] [address] Consent for Procedure/Surger yon 12-11-2023 Consent for Procedure/Surgery [id number]#1.00TIFF Normal [facility] Consent for Treatmenton 11-18 Consent for Treatment [id number]#1.00TIFF Normal [facility] Discharge Instructionson Discharge Instructions [id number]#1.00TIFF Normal [facility] IntraOperative Documentson 0 12-11-2023 IntraOperative Documents [id number]#1.00TIFF Normal [facility] IntraOperative Documents [id number]#1.00TIFF Normal [facility] Main OR Intraoperative Recor don 12-11-2023 Main OR Intraoperative Record IntraOp Document Type FTPM Summary Primary Physician: Andrew Eid DO Finalized Date/Time: 12/11/23 09:27:33 Pt. Name: SHARON KETURAH Vasquez/Sex: 1970 Female Med Rec #: [id number] Physician: Andrew Eid DO Financial #: [id number] Pt. Type: P Room/Bed: / Admit/Disch: 12/11/23 08:00:11 - Institution: Case Times FTPM Entry 1 Patient Times In Room 12/11/23 09:21:00 Out Room 12/11/23 09:28:00 Procedure Times Start 12/11/23 09:24:00 Stop 12/11/23 09:27:00 Anesthesia Times Last Modified By: Juma LAZO, Teressa Grewal 12/11/23 09:27:22 Case Attendance FTPM Entry 1 Entry 2 Entry 3 Case Attendee Andrew Eid DO, RN, Teressa Jones RN, Iola Queenie Role Performed Surgeon - Primary Driver/Merchandiser - Primary Scrub - Primary Time In 12/11/23 09:21:00 12/11/23 09:21:00 12/11/23 09:21:00 Time Out 12/11/23 09:28:00 12/11/23 09:28:00 12/11/23 09:28:00 Procedure LUMBAR EPIDURAL STEROID LUMBAR EPIDURAL STEROID LUMBAR EPIDURAL STEROID INJECTION(.) INJECTION(.) INJECTION(.) Comments Last Modified By: Teressa Dennison RN, RN, Teressa Joyce RN 12/11/23 09:27:22 12/11/23 09:27:22 12/11/23 09:27:22 Entry 4 Case Attendee Gen Lazo Role Performed Director Investor Relations Time In 12/11/23 09:21:00 Time Out 12/11/23 [...] No Time Out Teressa Dennison RN, Given Felipe Jones RN, Eli Hunter DO, Bradford A., Gen Lazo [...] and tissue Entry 1 Skin Integrity Intact, [place], Warm, and Skin Abnormality No Dry Outcomes [...] Juma Moreira (more content not included)... Normal [facility] Main OR Preoperative Recordo n 12-11-2023 Main OR Preoperative Record Holding Area Document Type FT Summary Primary Physician: Andrew Eid DO Finalized Date/Time: 12/11/23 08:39:56 Pt. Name: KETURAH HERRERA/Sex: 1970 Female Med Rec #: [id number] Physician: Andrew Eid DO Financial #: [id number] Pt. Type: P Room/Bed: / Admit/Disch: 12/11/23 [...] By: Odette Quintana RN 12/11/23 08:[address] [facility] Patient Correspondenceon Patient Correspondence [id number]#1.00TIFF Normal [facility] Orders Officeon 11-22-2023 Orders Office [id number]#1.00TIFF Normal [facility] Insurance Correspondence Off iceon 11-21-2023 Insurance Correspondence Office [id number]#2.00TIFF [facility] Outside Records Officeon Outside Records Office [id number]#1.00TIFF Normal [facility] Consent for Treatmenton 10-18 Consent for Treatment [id number]#1.00TIFF Normal [facility] Consultation Noteon 11-06-19 Consultation Note Patient: [...] options. She has undergone physical therapy [facility] with out improvement. In fact, she [...] MVP (mitral valve prolapse) / SNOMED CT 2818681919 / Confirmed Bipolar disorder / SNOMED CT 26260334 / Confirmed COPD (chronic obstructive pulmonary disease) / SNOMED CT 77694111 / Confirmed Vertigo / SNOMED CT 5233159799 / Confirmed Chronic pain / SNOMED CT 968030753 / Confirmed Osteoarthritis / SNOMED CT 6935526369 / Confirmed Hyperlipidemia / SNOMED CT 26532754 / Confirmed Chronic migraine / SNOMED CT 54916740 / Confirmed Sleep apnea / SNOMED CT 266369875 / Confirmed pt uses CPAP does not use cpap any longer Gastritis / SNOMED CT 9845962 / Confirmed Irritable bowel syndrome / SNOMED CT 58314358 / Confirmed Hypertension / SNOMED CT 1224739680 / Confirmed Dizziness / SNOMED CT 9992133789 / Confirmed Tarsal tunnel syndrome of left side / SNOMED CT 58943496 / Confirmed Diabetes / SNOMED CT 987135129 / Confirmed Personality disorder / SNOMED CT 67089699 / Confirmed TMJ arthralgia / SNOMED CT 439598348 / Confirmed Smoker / SNOMED CT S045XZ3A-3401-06F5-4214-EVQ8 A0297OL4 / Confirmed Added secondary to documentation in Social History. GERD (gastroesophageal reflux disease) / SNOMED CT 524281624 / Confirmed History of kidney stones / SNOMED CT 2851550346 / Confirmed Mixed incontinence urge and stress / SNOMED CT 04198557 / Confirmed Urinary frequency / SNOMED CT 121913327 / Confirmed Other urethral stricture, female / SNOMED CT 440269608 / Confirmed Incomplete emptying of bladder / SNOMED CT 165835624 / Confirmed Feeling of incomplete bladder emptying / SNOMED CT 521101484 / Confirmed Urge incontinence / SNOMED CT 065563006 / Confirmed Dysuria / SNOMED CT 37592202 / Confirmed Change in bowel habits / SNOMED CT 81234020 (more content not included)... [facility] Comment on above: Result Comment: Elec tronically Signed By: Cady Alva PA-C\.br\Date and Time Signed: 11/06/23 10:24 EDT\.br\Electronically Co-Signed By: Andrew Eid DO\Date and Time Co-Signed: 11/06/23 15:19 EDT HIPAA Forms Officeon 024 HIPAA Forms Office [id number]#1.00TIFF [facility] Legal Correspondence Officeo n 11-06-2023 Legal Correspondence Office [id number]#1.00TIFF [facility] Legal Correspondence Office [id number]#1.00TIFF [facility] Office/Clinic Note-Physician on 11-06-2023 Office/Clinic Note-Physician [id number]#1.00TIFF Normal [facility] Patient Correspondenceon Patient Correspondence [id number]#1.00TIFF Normal [facility] Patient Correspondence [id number]#1.00TIFF Normal [facility] Patient Correspondence [id number]#1.00TIFF Normal [facility] Patient Correspondence [id number]#1.00TIFF Normal [facility] Patient Correspondence [id number]#1.00TIFF Normal [facility] Patient History Officeon Patient History Office [id number]#1.00TIFF Normal [facility] Patient History Office [id number]#1.00TIFF [facility] Physician Orderon 11-06-2023 Physician Order [id number]#1.00TIFF [facility] Radiology Outside Office Hay Baler yon 11-06-2023 Radiology Outside Office Copy [id number]#1.00TIFF Normal [facility] Outside Records Officeon Outside Records Office [id number]#1.00TIFF Normal [facility] Referrals Officeon Referrals Office [id number]#1.00TIFF [facility] Event Monitoron 10-01-2023 Event Monitor [id number]#1.00TIFF [facility] Formson 10-01-2023 Forms [id number]#1.00TIFF Normal [facility] Screenson 09-18-2023 Screens [id number]#1.00TIFF Normal [facility] Ambulatory Visit Summaryon 0 09-17-2023 Ambulatory Visit Summary KETURAH HERRERA :1970 MRN:[id number] Visit Date:09/17/2023 Ambulatory Visit Instructions Your Diagnosis [...] POLLY MARIANO PA-C Where: [facility] Patient Educationon 09-17-19 24 Patient [...] these instructions at home: Medicines ? Take ezgm-ajj-phvqvqr and prescription medicines only as told by [...] the blood stops without treatment. ? Take hbgs-ehk-gymjtcd and prescription medicines only as told by your health care provider. ? Drink enough fluid to keep your urine pale yellow. This information is not intended to replace advice given to you by your health care provider. Make sure you discuss any questions you have with your health care provider. Document Revised: 04/05/2021 Document Reviewed: 04/05/2021 [employer] Patient Education ? 2022 [employer]. [facility] Retail - Clinical Noteon Retail - Clinical Note [id number]#1.00TIFF [facility] Retail - Clinical Note [id number]#1.00TIFF [facility] Urology Office/Clinic Noteon 09-17-2023 Urology [...] her (unsure if refill ran out?) [facility] [place] CC: flank pain and trouble [...] is 6.2. -Begin [facility]. [facility] mos to ensure working well. -Supply order provided for pads/incontinence supplies Ordered: E&M of Est. Patient Moderate 30-39 Min 88289 Urnls Dip Stick Auto w/o Microscopy POC 88830 2. Fecal incontinence (R15.9: Full incontinence of feces) Hx of IBS. Continues having complications with diarrhea and fecal incontinence follows with PCP used to follow with Dr. Bela CAZARES but he retired Ordered: E&M of Est. Patient Moderate 30-39 Min 86556 3. OAB (overactive bladder) (N32.81: Overactive bladder) see #1 Ordered: E&M of Est. Patient Moderate 30-39 Min 40652 4. Gross hematuria (R31.0: Gross hematuria) S/p [...] E&M of Est. Patient Moderate 30-39 Min 29949 5. Kidney stones (N20.0: Calculus of kidney) S/p lithotripsy 06/06/15. 24hr urine 10/25/19 done for unrelated reason (ordered by external provider): Total volume 2,525mL. CT AP wo con 10/20/22 [facility] [place] A few tiny nonobstructing R renal [...] E&M of Est. Patient Moderate 30-39 Min 48243 Orders: solifenacin, 10 mg = 1 tab(s), Oral, Daily, # 90 tab(s), Refills(s) 3, Pharmacy: [facility], 163, cm, 09/17/23 8:25:00 EST, Height/Length Dosing, 81, kg, 09/17/23 8:25:00 EST, Weight Dosing Follow-up With When Contact Information POLLY MARIANO PA-C, URL [address] [place] [address] [phone] Additional Instructions: 3 mos (restart med) Patient Education Hematuria, Adult Documentation record (more content not included)... Normal [facility] Comment on above: Result Comment: Elec [...] Dodson MD on 08/05/2023 5:33 PM Normal [facility] Consent for Treatmenton 12-0 Consent for Treatment [id number]#1.00TIFF Normal [facility] Heart and Vascular Office/Cl inic Noteon [...] palpitations and chest pain and went to [facility] for evaluation. He then saw Cady on [...] disease) Hemorrhoids (more content not included)... Normal [facility] Comment on above: Result Comment: Elec tronically Signed By: WILL WALSH, Elliott Grewal\.br\Date and Time Signed: 07/25/23 10:57 EST Physician Orderon 07-25-2023 Physician Order [id number]#1.00TIFF [facility] Heart and Vascular Office/Cl inic Noteon 07-18-2023 [...] cardiac clearance. Apparently she had gone to [facility] ER for SVT. She was ordered an event monitor and echocardiogram. Insurance has denied her echocardiogram. She had essentially normal echo in 2020. She had a cath with Dr. Beltran in 2019 with normal coronary arteries. She had her foot surgery without event. Here today now for another [facility] ER visit. She had chest pain and [...] estimated pulmonary artery pressure. [2] [facility] 03/03/2020 CONCLUSIONS: 1. Essentially normal coronary arteriograms. 2. Noncardiac chest pain. [3] Assessment/Plan 1. Palpitations (R00.2: Palpitations) Will add diltiazem 120 mg daily to her carvedilol 25 mg twice daily. We will request records from [facility]-need to review EKG that had questionable atrial flutter if this is the case she would need to be anticoagulated. She will follow-up with Dr. Solis as previously scheduled to review results of event monitor. Portions of this record may have been created with voice recognition artificial intelligence software, specifically [employer], [employer] and or Couchsurfing. Substitutions may have occurred due to the inherent limitations of voice recognition and artificial intelligence software. Follow-up With When Contact Information WILL WALSH, [place] [address] [phone] Additional Instructions: Follow up post event Problem [...] of Downey's (more content not included)... Normal [facility] Comment on above: Result Comment: Elec tronically Signed By: Cady CALIX CNP\.br\Date and Time Signed: 07/18/23 14:27 EST Outside Recordson 07-08-2023 Outside Records [id number]#1.00TIFF [facility] Physician Orderon 07-05-2023 Physician Order [id number]#1.00TIFF [facility] Consent for Treatmenton 05-20 Consent for Treatment [id number]#1.00TIFF [facility] Retail - Clinical Noteon Retail - Clinical Note [id number]#1.00TIFF [facility] Insurance Correspondenceon 1 Insurance Correspondence [id number]#1.00TIFF [facility] Outside Recordson 05-24-2023 Outside Records [id number]#1.00TIFF [facility] Outside Records [id number]#1.00TIFF [facility] Heart and Vascular Office/Cl inic [...] for foot surgery. Unfortunately, she presented to [facility] on 05/19/2023 with complaints of palpitations. [...] rash or concerning lesions Procedure [facility]- Dr Fragoso 03/03/20 CONCLUSIONS: 1. Essentially normal coronary arteriograms. 2. Noncardiac chest pain. [1] Cardiac Diagnostics (06/07/2021 14:15 EDT Echo Transthoracic Complete) SUMMARY/CONCLUSION: 1. Normal left ventricle and right ventricle. 2. Borderline impaired diastolic relaxation. 3. No significant valve disease. 4. Normal estimated pulmonary artery pressure. [2] [1] Assessment/Plan 1. Sinus tachycardia (R00.0: Tachycardia, unspecified) In [facility] for palpitation, noted to be sinus [...] with voice recognition artificial intelligence software, specifically [employer], [employer] and or Couchsurfing. Substitutions may have occurred due to the inherent limitations of voice recognition and artificial intelligence software. Follow-up With When Contact Information WILL WALSH, Elliott Grewal Within 6 weeks [address] [place] [address]- [phone] Additional Instructions: Problem List/Past Medical History Ongoing [...] (03/14/2020), Catheter (more content not included)... Normal [facility] Comment on above: Result Comment: Elec tronically Signed By: Cady CALIX CNP.rosi\Date and Time Signed: 05/21/23 12:56 EDT Consent for Treatmenton Consent for Treatment [id number]#1.00CD:[address] [facility] Physician Orderon 05-20-2023 Physician Order [id number]#1.00CD:[address] [facility] Physician Orderon 05-17-2023 Physician Order Confirmed with Ana Rosa olivas @ [facility] that fax was received [id number]#1.00CD:[address] [facility] Consent for Treatmenton 04-20 Consent for Treatment [id number]#1.00CD:[address] [facility] Heart and Vascular Office/Cl inic Noteon [...] Esophagogastroduodenoscopy ( (more content not included)... Normal [facility] Comment on above: Result Comment: Elec tronically Signed By: WILL WALSH, Elliott Grewal\.rosi\Date and Time Signed: 05/16/23 10:46 EDT Physician Orderon 05-16-2023 Physician Order [id number]#1.00CD:[address] [facility] XR KNEE LT 4V or >on [...] by: LILIANA NDIAYE Date: 2022-11-29 16:44 Normal [facility] CHEMISTRYOrdered By: Lab ROP User on 11-21-2022 Glucose [Mass/Vol] 91 mg/dL Normal 55 - 99 mg/dL [facility] [place] Sub[place] Comment on above: Result Comment: Dahlia hoover Meter POC Device SN [id number] Invalid Interpretation Code [facility] Subsection POC User ID [id number] Invalid Interpretation Code [facility] Subsection POC Username BILLY HOGUE Invalid Interpretation Code [facility] Subsection CHEMISTRYOrdered By: SYSTEM SYSTEM on [...] rate/Area] mL/min/1.73 m2 Normal >=59mL/min /1.73 m2 [facility] Chem S GFR/1.73 sq M.predicted among non-blacks MDRD (S/P/Bld) [Vol rate/Area] 52 mL/min/1.73 m2 Low >=59mL/min /1.73 m2 [facility] Chem S Glucose [Mass/Vol] 127 mg/dL Normal 55 - 199 mg/dL [facility] Potassium [Moles/Vol] 4.0 mmol/L Normal 3.5 - 5.3 mmol/L [facility] Sodium [Moles/Vol] 134 mmol/L Low 135 - 145 mmol/L [facility] Urea nitrogen [Mass/Vol] 7 mg/dL Normal 5 - 21 mg/dL [facility] Urea nitrogen/Creatinine [Mass ratio] 6 mg/mg Low 10 - 20 [facility] HEMATOLOGYOrdered By: SYSTEM SYSTEM on 10-20-2022 Basophils/100 WBC (Bld) 1.0 % Normal 0.0 - 2.0 % [facility] HemeAutoSS Basophils/Leukocyte s Auto (Bld) [Pure # [...] AM) Normal Negative [facility] UA Auto SS [place].plasma/Lith ium.RBC (Bld) [Mass ratio] 0-3 /HPF Normal [...] [facility] UA Auto SS Urobilinogen Qn (U) 0.3179331 {Gareth'U}/dL Normal 0.0 - 1.0 EU/dL [facility] UA Auto SS WBC Auto Ql (U) 1+ *ABN* (10/20/22 11:40 AM) Invalid Interpretation Code Negative [facility] UA Auto SS WBC LM.HPF (Urine sed) [#/Area] 0-5 /HPF Normal 0-5/HPF [facility] UA Auto SS MG [facility]M DIAGNOSTIC 3D TAJ CA Don 09-10-2022 MG MAMM DIAGNOSTIC 3D TAJ CAD Patient: KETURAH HERRERA Exam Date: 09/10/2022 : 1970 Gender:F Ordering : DR DAVID VILLALOBOS . Admission #: [id number] Family : Order #: [id number] CLICK HERE TO VIEW EXAM RADIOLOGY REPORT [...] at age 60. LOCATION: [facility] BREAST COMPOSITION: Heterogeneously dense,which may obscure small [...] Roach M.D. on 09/10/2022 at 13:54 Normal [facility] US BREAST LEFT LIMITEDon US BREAST LEFT LIMITED Patient: KETURAH HERRERA Exam Date: 09/10/2022 : 1970 Gender:F Ordering : DR DAVID VILLALOBOS . Admission #: [id number] Family : Order #: [id number] CLICK HERE TO VIEW EXAM RADIOLOGY REPORT [...] at age 60. LOCATION: [facility] BREAST COMPOSITION: Heterogeneously dense,which may obscure small [...] Roach M.D. on 09/10/2022 at 13:54 Normal [facility] XR DEXA BONE DENSITYon 08-06 XR [...] DELORES ROACH Date: 2022-08-06 14:11 Normal [facility] XR CHEST 2 Von 07-04-2022 XR [...] Date: 2022-07-04 14:11 Normal [facility] XR KNEE RT 4V or >on 022 [...] Date: 2022-07-03 18:12 Normal [facility] CBC AUTO DIFFon 04-30-2022 BASO # 0.1 103/ul Normal 0.0-0.1 [facility] Comment on above: Performed By: #### C BC ####[facility] [address] [place] [id number]. Soo Taylor Basophils/100 WBC (Bld) 0.7 % Normal 0.2-2.0 [facility] Comment on above: Performed By: #### C BC ####[facility] [address] [place], [place] [id number]. Soo Taylor EO # 0.1 103/ul Normal 0.0-0.7 [facility] Comment on above: Performed By: #### C BC ####[facility] L[address]sjmfq[address] [place] [id number]. Soo Taylor Eosinophils/100 WBC (Bld) 0.4 % Critically low 0.9-7.0 [facility] Comment on above: Performed By: #### C BC ####[facility] [address] [place], [place] [address]Dr. Soo Taylor Erythrocyte distribution width (RBC) [Ratio] 15.1 % Critically high 11.0-15.0 [facility] Comment on above: Performed By: #### C BC ####[facility] [address] [place], [place] [address]Dr. Soo Taylor Hematocrit (Bld) [Volume fraction] 43.4 % Normal 36.0-48.0 [facility] Comment on above: Performed By: #### C BC ####[facility] [address] [place], [place] [address]Dr. oSo Taylor Hemoglobin (Bld) [Mass/Vol] 14.4 g/dL Normal 12.0-16.0 [facility] Comment on above: Performed By: #### C BC ####[facility] [address] [place], [place] [address]Dr. Soo Taylor IG # 0.06 10e3/ul Critically high 0.00-0.03 [facility] Comment on above: Performed By: #### C BC ####[facility] [address] [place], [place] [address]Dr. Soo Taylor IG % 0.4 % Normal 0.0-0.5 [facility] Comment on above: Performed By: #### C BC ####[facility] B[address] [place] [id number]. Soo Nataliia LYMPH # 5.4 103/ul Critically high 1.2-3.8 [facility] Comment on above: Performed By: #### C BC ####[facility] Sfr[address]pqpgc[address] [place] [id number]. Soo Taylor Lymphocytes/100 WBC (Bld) 36.6 % Normal 20.5-60.0 [facility] Comment on above: Performed By: #### C BC ####[facility] [address] [place] [address]Dr. Soo Taylor MANUAL DIFF REQ NO Normal [facility] Comment on above: Performed By: #### C BC ####[facility] Ep[address]vfnaru8[address] [place] [id number]. Soo Taylor MCH (RBC) [Entitic mass] 29.4 pg Normal 26.7-34.0 [facility] Comment on above: Performed By: #### C BC ####[facility] [address] [place] [id number]. Ileneleah Taylor MCHC (RBC) [Mass/Vol] 33.2 g/dL Normal 29.9-35.2 [facility] Comment on above: Performed By: #### C BC ####[facility] [address]zdt43[address] [place] [id number] Taylor MCV (RBC) [Entitic vol] 88.6 fL Normal 81.0-99.0 [facility] Comment on above: Performed By: #### C BC ####[facility] [address]wg[address] [place] [id number] Taylor MONO # 0.9 103/ul Critically high 0.3-0.8 [facility] Comment on above: Performed By: #### C BC ####[facility] [address]emetrvc[address] [place] [id number]. Soo Taylor Monocytes/100 WBC (Bld) 6.4 % Normal 1.7-12.0 [facility] Comment on above: Performed By: #### C BC ####[facility] [address]whfmp[address] [place] [id number] Soo Taylor NEUT # 8.1 103/ul Critically high 1.4-6.5 [facility] Comment on above: Performed By: #### C BC ####[facility] [address]axkok1907 [place] [id number] Taylor Neutrophils/100 WBC (Bld) 55.5 % Normal 43.0-75.0 [facility] Comment on above: Performed By: #### C BC ####[facility] [address]irl[address] [place] [address]DrDanica Taylor Platelet mean volume (Bld) [Entitic vol] 9.9 fL Normal 9.5-13.5 [facility] Comment on above: Performed By: #### C BC ####[facility] [address] [place] [address]Dr. Soo Taylor PLT 326 103/ul Normal 150-450 [facility] Comment on above: Performed By: #### C BC ####[facility] [address] [place] [address]Dr. Soo Taylor RBC 4.90 106/ul Normal 4.20-5.40 [facility] Comment on above: Performed By: #### C BC ####[facility] [address]vp[address] [place] [id number] Taylor WBC 14.6 103/ul Critically high 4.0-11.0 [facility] Comment on above: Performed By: #### C BC ####[facility] F[address]esagmac[address] [place] [id number] Tayolr PROF CHEM 8 (BAS METB)on Anion gap [Moles/Vol] 12.9 mmol/L Normal [facility] Comment on above: Performed By: #### B MP ####[facility] [address] [place] [address]DrDanica Taylor Calcium [Mass/Vol] 9.5 mg/dL Normal 8.5-10.1 [facility] Comment on above: Performed By: #### B MP ####[facility] [address] [place] [address]Dr. Soo Nataliia Chloride [Moles/Vol] 101 mmol/L Normal 98-107 [facility] Comment on above: Performed By: #### B MP ####[facility] E[address]kw[address] [place] [id number]. Ileneleah Nataliia CO2 [Moles/Vol] 26.6 mmol/L Normal 21.0-32.0 [facility] Comment on above: Performed By: #### B MP ####[facility] Z[address] [place] [address]Dr. Ileneleah Nataliia Creatinine [Mass/Vol] 1.11 mg/dL Critically high 0.55-1.02 [facility] Comment on above: Performed By: #### B MP ####[facility] [address] [place], [place] [address]Dr. Ileneleah Nataliia EGFR-AF UZBEK >60 Normal >=60 [facility] Comment on above: Performed By: #### B MP ####[facility] [address] [place], [place] [address]Dr. Ileneleah Nataliia EGFR-NON AF UZBEK 52 mL/min/1.73m2 Critically low >=60 [facility] Comment on above: Performed By: #### B MP ####[facility] [address] [place] [address]Dr. Soo Taylor Glucose [Mass/Vol] 145 mg/dL Critically high 74-106 [facility] Comment on above: Performed By: #### B MP ####[facility] S[address]vvtnza17[address] [place] [id number]. Soo Taylor Potassium [Moles/Vol] 3.5 mmol/L Normal 3.5-5.1 [facility] Comment on above: Performed By: #### B MP ####[facility] X[address]lesse[address] [place] [address]Dr. Soo Taylor Sodium [Moles/Vol] 137 mmol/L Normal 136-145 [facility] Comment on above: Performed By: #### B MP ####[facility] V[address]wiwvk[address] [place] [id number]. Soo Taylor Urea nitrogen [Mass/Vol] 2.0 mg/dL Critically low 7.0-18.0 [facility] Comment on above: Performed By: #### B MP ####[facility] V[address]ola0583 [place] [id number]. Soo Taylor Urea nitrogen/Creatinine [Mass ratio] 1.8 mg/mg Normal [facility] Comment on above: Performed By: #### B MP ####[facility] Exfx[address]hnjef[address] [place] [id number]. Soo Taylor TROPONIN, HIGH SENSITIVITYon 04-30-2022 HSTROP 5.1 pg/mL Normal 4.0-51.3 [facility] Comment on above: Result Comment: CUT- OFF POINTS HAVE BEEN ESTABLISHED BASED ON THE FOURTH UNIVERSAL DEFINITIONS OF MYOCARDIAL INFARCTION. THE UPPER REFERENCE LIMIT (URL) OF TROPONIN, DEFINED THE 99TH PERCENTILE OF cTnI DISTRIBUTION IN A REFERENCE POPULATION, HAS BEEN CONFIRMED THE DECISION THRESHOLD FOR [place] DIAGNOSIS. Performed By: #### H STROPN ####[facility] [address] [place] [address]Dr. Soo Taylor HSTROP 4.6 pg/mL Normal 4.0-51.3 [facility] Comment on above: Result Comment: CUT- OFF POINTS HAVE BEEN ESTABLISHED BASED ON THE FOURTH UNIVERSAL DEFINITIONS OF MYOCARDIAL INFARCTION. THE UPPER REFERENCE LIMIT (URL) OF TROPONIN, DEFINED THE 99TH PERCENTILE OF cTnI DISTRIBUTION IN A REFERENCE POPULATION, HAS BEEN CONFIRMED THE DECISION THRESHOLD FOR [place] DIAGNOSIS. Performed By: #### H STROPN ####[facility] [address]px[address] [place] [id number]. Soo Taylor MRI LSPINE WO CONon 04-06-20 [...] by: MAMIE HERNANDEZ Date: 2022-04-06 18:18 Normal [facility] MRI KNEE RT WO CONon 022 [...] by: MAMIE HERNANDEZ Date: 2022-03-28 11:40 Normal [facility] MRI SHOULDER RT WO CONon MRI [...] Date: 2022-03-28 09:09 Normal [facility] ER URINE PROFILEon 2 Bilirubin Ql (U) Negative Normal NEGATIVE [facility] Comment on above: Performed By: #### E RUR #### [facility] [address] [place] [address] Dr. Soo Taylor Clarity (U) CLEAR Normal CLEAR [facility] Comment on above: Performed By: #### E RUR #### [facility] [address] [place] [address] Dr. Soo Taylor Color (U) LT. YELLOW Normal YELLOW [facility] Comment on above: Performed By: #### E RUR #### [facility] [address] [place] [address] Dr. Soo Taylor ERUAHD A micrscopic examina tion will be performed if indicated. Normal [facility] Comment on above: Performed By: #### E RUR #### [facility] [address] [place] [address] Dr. Soo Taylor Glucose Ql (U) Negative Normal NEGATIVE [facility] Comment on above: Performed By: #### E RUR #### [facility] [address] [place] [address] Dr. Soo Taylor Hemoglobin Ql (U) Negative Normal NEGATIVE [facility] Comment on above: Performed By: #### E RUR #### [facility] [address] [place] [address] Dr. Soo Taylor Ketones Ql (U) Negative Normal NEGATIVE [facility] Comment on above: Performed By: #### E RUR #### [facility] [address] [place] [address] Dr. Soo Taylor LEUKOCYTES Negative Normal NEGATIVE [facility] Comment on above: Performed By: #### E RUR #### [facility] [address] [place] [address] Dr. Soo Taylor Nitrite Ql (U) Negative Normal NEGATIVE [facility] Comment on above: Performed By: #### E RUR #### [facility] [address] [place] [address] Dr. Soo Taylor pH (U) 5.5 [pH] Normal 5-9 [facility] Comment on above: Performed By: #### E RUR #### [facility] [address] [place] [address] Dr. Soo Taylor SPEC GRAVITY <=1.005 Abnormal 1.005-<=1. 025 [facility] Comment on above: Performed By: #### E RUR #### [facility] [address] [place] [address] Dr. Soo Taylor UA PROTEIN Negative Normal NEGATIVE/ TRACE [facility] Comment on above: Performed By: #### E RUR #### [facility] [address] [place] [address] Dr. Soo Taylor UR MICRO IND NOT INDICATED Normal [facility] Comment on above: Performed By: #### E RUR #### [facility] [address] [place] [address] Dr. Soo Taylor Urobilinogen Qn (U) 0.2 {Gareth'U}/dL Normal 0.2 - 1. 0 [facility] Comment on above: Performed By: #### E RUR #### [facility] [address] [place] [address] Dr. Soo Taylor [facility] METABOLIC PANE [facility] 02-22-2022 Albumin [Mass/Vol] 4.2 g/dL Normal 3.6-5.1 [facility] Comment on above: Performed By: #### 7 600, 52333, 496 #### [facility] [place] [address] Business Analysis Analyst: Arjun Ramos MD Albumin/Globulin [Mass ratio] 1.8 {ratio} Normal 1.0-2.5 [facility] Comment on above: Performed By: #### 7 600, 63161, 496 #### [facility] [place] [address] Business Analysis Analyst: Arjun Ramos MD ALP [Catalytic activity/Vol] 143 U/L Normal 37-153 [facility] Comment on above: Performed By: #### 7 600, 36777, 496 #### [facility] [address], [address] [place] [address] Business Analysis Analyst: Arjun Ramos MD ALT [Catalytic activity/Vol] 18 U/L Normal 6-29 [facility] Comment on above: Performed By: #### 7 600, 35786, 496 #### [facility] [place] [address] Business Analysis Analyst: Arjun Ramos MD AST [Catalytic activity/Vol] 14 U/L Normal 10-35 [facility] Comment on above: Performed By: #### 7 600, 62704, 496 #### [facility] [place] [address] Business Analysis Analyst: Arjun Ramos MD Bilirubin [Mass/Vol] 0.5 mg/dL Normal 0.2-1.2 [facility] Comment on above: Performed By: #### 7 600, 98713, 496 #### [facility] [place] [address] Business Analysis Analyst: Arjun Ramos MD Calcium [Mass/Vol] 10.0 mg/dL Normal 8.6-10.4 [facility] Comment on above: Performed By: #### 7 600, 53396, 496 #### [facility] [place] [address] Business Analysis Analyst: Arjun Ramos MD Chloride [Moles/Vol] 100 mmol/L Normal 98-110 [facility] Comment on above: Performed By: #### 7 600, 63114, 496 #### [facility] [place] [address] Business Analysis Analyst: Arjun Ramos MD CO2 [Moles/Vol] 29 mmol/L Normal 20-32 [facility] Comment on above: Performed By: #### 7 600, 41964, 496 #### [facility] [place] [address] Business Analysis Analyst: Arjun Ramos MD Creatinine [Mass/Vol] 0.86 mg/dL Normal 0.50-1.05 [facility] Comment on above: Result Comment: For patients >49 years of age, the reference limit for Creatinine is approximately 13% higher for people identified as -Greenlandic. Performed By: #### 7 600, 92662, 496 #### [facility] [place] [address] Business Analysis Analyst: Arjun Ramos MD eGFR NON-AFR. UZBEK 78 mL/min/1.73m2 Normal > OR = 60 [facility] Comment on above: Performed By: #### 7 600, 62674, 496 #### [facility] [place] [address] Business Analysis Analyst: Arjun Ramos MD GFR/1.73 sq M.predicted among blacks MDRD (S/P/Bld) [Vol rate/Area] 91 mL/min/{1.73_m2} Normal > OR = 60 [facility] Comment on above: Performed By: #### 7 600, 96152, 496 #### [facility] [place] [address] Business Analysis Analyst: Arjun Ramos MD Globulin (S) [Mass/Vol] 2.4 g/dL Normal 1.9-3.7 [facility] Comment on above: Performed By: #### 7 600, 42622, 496 #### [facility] [place] [address] Business Analysis Analyst: Arjun Rmaos MD Glucose [Mass/Vol] 125 mg/dL Normal 65-139 [facility] Comment on above: Result Comment: Non-fasting reference interval For someone without known diabetes, a glucose value between 100 and 125 mg/dL is consistent with prediabetes and should be confirmed with a follow-up test. Performed By: #### 7 600, 40892, 496 #### [facility] [place] [address] Business Analysis Analyst: Arjun Ramos MD Potassium [Moles/Vol] 3.6 mmol/L Normal 3.5-5.3 [facility] Comment on above: Performed By: #### 7 600, 90697, 496 #### [facility] [place] [address] Business Analysis Analyst: Arjun Ramos MD Protein [Mass/Vol] 6.6 g/dL Normal 6.1-8.1 [facility] Comment on above: Performed By: #### 7 600, 11812, 496 #### [facility] [place] [address] Business Analysis Analyst: Arjun Ramos MD Sodium [Moles/Vol] 139 mmol/L Normal 135-146 [facility] Comment on above: Performed By: #### 7 600, 83962, 496 #### [facility] [address], [address] [place] [address] Business Analysis Analyst: Arjun Ramos MD Urea nitrogen [Mass/Vol] 4 mg/dL Low 7-25 [facility] Comment on above: Performed By: #### 7 600, 55037, 496 #### [facility] [place] [address] Business Analysis Analyst: Arjun Ramos MD Urea nitrogen/Creatinine [Mass ratio] 5 mg/mg Low 6-22 [facility] Comment on above: Performed By: #### 7 600, 48127, 496 #### [facility] [place] [address] Business Analysis Analyst: Arjun Ramos MD HEMOGLOBIN A1con 02-22-2022 HEMOGLOBIN [...] diagnosis of diabetes in children. According to [place] Diabetes Association (ADA) guidelines, hemoglobin A1c <7.0% represents optimal control in non- diabetic patients. Different metrics may apply to specific patient populations. Standards of Medical Care in Diabetes(ADA). Performed By: #### 7 600, 93177, 496 #### [facility] of [address], [address] [place] [address] Business Analysis Analyst: Arjun Ramos MD LIPID PANEL, [facility] -0 Cholesterol [Mass/Vol] 187 mg/dL Normal <200 [facility] Comment on above: Order Comment: FASTI NG:NO FASTING: NO Performed By: #### 7 600, 68063, 496 #### [facility] [address], [address] [place] [address] Business Analysis Analyst: Arjun Ramos MD Cholesterol in HDL [Mass/Vol] 43 mg/dL Low > OR = 50 [facility] Comment on above: Order Comment: FASTI NG:NO FASTING: NO Performed By: #### 7 600, 68978, 496 #### [facility] [address], [address] [place] [address] Business Analysis Analyst: Arjun Ramos MD Cholesterol.total/C holesterol in HDL [Mass ratio] 4.3 {ratio} Normal <5.0 [facility] Comment on above: Order Comment: FASTI NG:NO FASTING: NO Performed By: #### 7 600, 52322, 496 #### [facility] [address], [address] [place] [address] Business Analysis Analyst: Arjun Ramos MD LDL-CHOLESTEROL Normal [facility] [...] LDL-C. Lan MARTÍNEZ et al. KELLY. 2013;310(19): 9135-6866 ([email or web address]/faq/LOG754) Performed By: #### 7 600, 30530, 496 #### [facility] [address], [address] [place] [address] Business Analysis Analyst: Arjun Ramos MD NON HDL CHOLESTEROL 144 mg/dL (calc) High <130 [facility] Comment on above: Order Comment: FASTI NG:NO FASTING: NO Result Comment: For patients with diabetes plus 1 major ASCVD risk factor, treating to a non-HDL-C goal of <100 mg/dL (LDL-C of <70 mg/dL) is considered a therapeutic option. Performed By: #### 7 600, 88281, 496 #### [facility] [address], [address] [place] [address] Business Analysis Analyst: Arjun Ramos MD Triglyceride [Mass/Vol] 425 mg/dL High <150 [facility] Comment on above: Order Comment: FASTI NG:NO FASTING: NO Result Comment: If a non-fasting specimen was collected, consider repeat triglyceride testing on a fasting specimen if clinically indicated. Heber et al. J. of Clin. Lipidol. 2015;9:129-169. Performed By: #### 7 600, 77298, 496 #### [facility] [address], [address] [place] [address] Business Analysis Analyst: Arjun Ramos MD HEMOGLOBIN A1con 11-14-2021 HEMOGLOBIN [...] #### 7 600, 496 #### [facility] [address], [address] [place] [address] Business Analysis Analyst: Arjun Ramos MD LIPID PANEL, STANDARDon - Cholesterol [Mass/Vol] 184 mg/dL Normal <200 [facility] Comment on above: Order Comment: FASTI NG:YES FASTING: YES Performed By: #### 7 600, 496 #### [facility] [address], [address] [place] [address] Business Analysis Analyst: Arjun Ramos MD Cholesterol in HDL [Mass/Vol] 32 mg/dL Low > OR = 50 [facility] Comment on above: Order Comment: FASTI NG:YES FASTING: YES Performed By: #### 7 600, 496 #### [facility] [address], [address] [place] [address] Business Analysis Analyst: Arjun Ramos MD Cholesterol.total/C holesterol in HDL [Mass ratio] 5.8 {ratio} High <5.0 [facility] Comment on above: Order Comment: FASTI NG:YES FASTING: YES Performed By: #### 7 600, 496 #### [facility] [address], [address] [place] [address] Business Analysis Analyst: Arjun Ramos MD LDL-CHOLESTEROL Normal [facility] [...] LDL-C. Lan MARTÍNEZ et al. KELLY. 2013;310(19): 0571-7487 ([email or web address]) Performed By: #### 7 600, 496 #### [facility] [address], [address] [place] [address] Business Analysis Analyst: Arjun Ramos MD NON HDL CHOLESTEROL 152 mg/dL (calc) High <130 [facility] Comment on above: Order Comment: FASTI NG:YES FASTING: YES Result Comment: For patients with diabetes plus 1 major ASCVD risk factor, treating to a non-HDL-C goal of <100 mg/dL (LDL-C of <70 mg/dL) is considered a therapeutic option. Performed By: #### 7 600, 496 #### [facility] [address], [address] [place] [address] Business Analysis Analyst: Arjun Ramos MD Triglyceride [Mass/Vol] 531 mg/dL [...] Performed By: #### 7 600, 496 #### [facility] [address], [address] [place] [phone] Business Analysis Analyst: Arjun Ramos MD OV 06-27-2021 CNOV Office Visit (OTOLCC ) KETURAH HERRERA ([id number]) 1970 F Date Time Provider Department 06/27/21 2:00 PM [facility] we recorded the following information about you: Temperature Pulse 97.3 degrees 82/minute Ye Rodriguez PA-C 06/27/2021 4:56 PM Signed [facility] NOTE CC: Keturah Herrera is a [...] bipolar - COPD (chronic obstructive pulmonary disease) ([facility]) - Depression - Ana Laura-Danlos [...] CNOV Office Visit (LOORRM ) KETURAH HERRERA ([id number]) 1970 F Date Time Provider Department 04/19/21 [...] - Fully Assessed Reason for Visit: New [779781] Fracture [4131] Primary Visit Diagnosis:Other closed nondisplaced fracture of proximal end of left humerus, initial encounter [S42.295A] Other Visit Diagnosis:Right elbow pain [M25.521] Order(s):XR ELBOW SPECIAL VIEWS AP/LAT/OTHER RT [2000324] Order #: [id number] FUTURE CONSULT TO HEAD GREENSKEEPER [[id number]] Order #: [id number]: [id number] FUTURE Prescriptions as of 04/19/2021 - [...] NO ACUTE OSSEOUS ABNORMALITY OTHER FINDINGS DESCRIBED Restorative Art Embalmer: [facility] Transcribe Date/Time: Apr 19 2021 2:38P Dictated by : CAROL ROCHE MD This examination was interpreted and the report reviewed and electronically signed by: CAROL ROCHE MD on Apr 19 2021 2:39PM EST [id number] Normal [facility] XR Elbow - right AP and Late ral and obliqueon 04-19-2021 IMPRESSION: NO ACUTE OSSEOUS ABNORMALITY OTHER FINDINGS DESCRIBED Restorative Art Embalmer: [facility] Transcribe Date/Time: Apr 19 2021 2:38P Dictated by : CAROL ROCHE MD This examination was interpreted and the report reviewed and electronically signed by: CAROL ROCHE MD on Apr 19 2021 2:39PM EST DIVISION OF RADIOLOGY * * *Final [...] other significant abnormality. DIVISION OF RADIOLOGY Provider, [facility] Mayra [facility] - 04/19/2021 * [...] NO ACUTE OSSEOUS ABNORMALITY OTHER FINDINGS DESCRIBED Restorative Art Embalmer: [employer] Transcribe Date/Time: Apr 19 2021 2:38P Dictated by : CAROL ROCHE MD This examination was interpreted and the report reviewed and electronically signed by: CAROL ROCHE MD on Apr 19 2021 2:39PM EST [facility] Radiology Study observation (narrative) [facility] XR Elbow - right AP and Late ral and obliqueOrdered By: Ccf Provider on 04-19-2021 [facility] XR SHLDR >/=3V AP/IGNACIA AP/OTH R [...] No other significant abnormality. IMPRESSION: HEALING FRACTURE Restorative Art Embalmer: [employer] Transcribe Date/Time: Apr 19 2021 2:02P Dictated by : CAROL ROCHE MD This examination was interpreted and the report reviewed and electronically signed by: CAROL ROCHE MD on Apr 19 2021 2:02PM EST [id number] Normal [facility] XR Shoulder - right 3 Viewso n 04-19-2021 IMPRESSION: HEALING FRACTURE Restorative Art Embalmer: [employer] Transcribe Date/Time: Apr 19 2021 2:02P [...] other significant abnormality. IMPRESSION IMPRESSION: HEALING FRACTURE Restorative Art Embalmer: [employer] Transcribe Date/Time: Apr 19 2021 2:02P Dictated by : CAROL ROCHE MD This examination was interpreted and the report reviewed and electronically signed by: CAROL ROCHE MD on Apr 19 2021 2:02PM EST [facility] Radiology Study observation (narrative) [facility] XR Shoulder - right 3 ViewsO rdered By: Lenore Provider on 04-19-2021 [facility] Vital Signs Date Time Vital Sign Value Performing Clinician Facility 06-18-2024 [id number] Body height 162.6 cm Martin Arango DPM Work Phone: [facility] 06-18-2024 15:01-0400 Body mass index (BMI) [Ratio] 28.15 kg/m2 Martin Arango DPM Work Phone: [facility] 06-18-2024 15:01-0400 Body weight 74.39 kg Martin Arango DPM Work Phone: [facility] 06-18-2024 15:01-0400 Diastolic blood pressure 79 mm[Hg] Martin Arango DPM Work Phone: [facility] 06-18-2024 15:01-0400 Heart rate 84 /min Martin Arango DPM Work Phone: [facility] 06-18-2024 15:01-0400 Systolic blood pressure 140 mm[Hg] Martin Arango DPM Work Phone: [facility] 06-11-2024 15:10-0400 Body height 162.6 cm Nataliia Simpson MD Work Phone: [employer] [facility] 06-11-2024 15:10-0400 Body mass index (BMI) [Ratio] 28.48 kg/m2 [facility]ia Simpson MD [facility] 06-11-2024 15:10-0400 Body temperature 98.01 [degF] Nataliia Simpson MD [facility] 06-11-2024 15:10-0400 Body weight 75.3 kg Nataliia Simpson MD Work Phone: [facility] [employer] [facility] 06-11-2024 15:10-0400 Diastolic blood pressure 70 mm[Hg] Nataliia Simpson MD [facility] 06-11-2024 15:10-0400 Heart rate 50 /min Nataliia Simpson MD [facility] 06-11-2024 15:10-0400 Respiratory rate 18 /min Nataliia Simpson MD [facility] 06-11-2024 15:10-0400 SaO2% (BldA) [Mass fraction] 99 % Nataliia Simpson MD [facility] 06-11-2024 15:10-0400 Systolic blood pressure 135 mm[Hg] Nataliia Simpson MD Work [facility] 05-20-2024 11:08-0400 Body height 162.6 cm Alexsandra Verhoff PA-C Work Phone[facility] 05-20-2024 11:08-0400 Body mass index (BMI) [Ratio] 28.63 kg/m2 Alexsandra Verhoff PA-C [facility] 05-20-2024 11:08-0400 Body weight 75.66 kg Alexsandra Verhoff PA-C [facility] Phone[facility] 05-20-2024 11:08-0400 Diastolic blood pressure 82 mm[Hg] Alexsandra Verhoff PA-C Work Phone: [facility] 05-20-2024 11:08-0400 Heart rate 75 /min Alexsandra Brownff PA-C Work Phone: [facility] [employer] [facility] 05-20-2024 11:08-0400 Systolic blood pressure 139 mm[Hg] Alexsandra Brownff PA-C Work Phone: [facility] 03-05-2024 15:16-0400 Diastolic blood pressure 69 mm[Hg] Andrew Eid [facility] 03-05-2024 15:16-0400 Heart rate 62 /min Andrew Eid [facility] 03-05-2024 15:16-0400 Mean blood pressure 84 mm[Hg] Andrew Eid [facility] 03-05-2024 15:16-0400 Respiratory rate 14 /min Andrew Eid [facility] 03-05-2024 15:16-0400 Systolic blood pressure 115 mm[Hg] Andrew Eid [facility] 01-30-2024 13:54-0400 Diastolic blood pressure 68 mm[Hg] En Carmen [facility] 01-30-2024 13:54-0400 Systolic blood pressure 124 mm[Hg] En Carmen [facility] 01-15-2024 08:16-0400 Diastolic blood pressure 70 mm[Hg] Cady Alva [facility] 01-15-2024 08:16-0400 Heart rate 73 /min Cady Alva [facility] 01-15-2024 08:16-0400 Mean blood pressure 82 mm[Hg] Cady Alva [facility] 01-15-2024 08:16-0400 Respiratory rate 16 /min Cady Alva [facility] 01-15-2024 08:16-0400 Systolic blood pressure 105 mm[Hg] Cady Alva [facility] 01-01-2024 11:04-0400 Diastolic blood pressure 71 mm[Hg] Cady Alva [facility] 01-01-2024 11:04-0400 Heart rate 62 /min Cady Alva [facility] 01-01-2024 11:04-0400 Mean blood pressure 91 mm[Hg] Cady Alva [facility] 01-01-2024 11:04-0400 Respiratory rate 12 /min Cady Alva [facility] 01-01-2024 11:04-0400 Systolic blood pressure 131 mm[Hg] Cady Alva [facility] 12-31-2023 12:53-0400 Blood Pressure Location POLLY MARIANO [facility] 12-31-2023 12:53-0400 Diastolic blood pressure 65 mm[Hg] POLLY MURPHYRY [facility] 12-31-2023 12:53-0400 Heart rate 57 /min POLLY YUDY [facility] 12-31-2023 12:53-0400 Respiratory rate 16 /min POLLY YUDY [facility] 12-31-2023 12:53-0400 Systolic blood pressure 117 mm[Hg] POLLY YUDY [facility] 12-11-2023 09:29-0400 Heart rate 89 /min Andrew Eid [facility] 12-11-2023 09:29-0400 SaO2% (BldA) [Mass fraction] 96 % Andrew Eid [facility] 12-11-2023 09:29-0400 Diastolic blood pressure 86 mm[Hg] Andrew Eid [facility] 12-11-2023 09:29-0400 Mean blood pressure 103 mm[Hg] Andrew Eid [facility] 12-11-2023 09:29-0400 Systolic blood pressure 137 mm[Hg] Andrew Eid [facility] 12-11-2023 09:29-0400 Respiratory rate 14 /min Andrew Eid [facility] 12-11-2023 09:25-0400 Diastolic blood pressure 84 mm[Hg] Andrew Eid [facility] 12-11-2023 09:25-0400 Heart rate 97 /min Andrew Eid [facility] 12-11-2023 09:25-0400 SaO2% (BldA) [Mass fraction] 96 % Andrew Eid [facility] 12-11-2023 09:25-0400 Systolic blood pressure 141 mm[Hg] Andrew Eid [facility] 12-11-2023 08:44-0400 Heart rate 93 /min Andrew Eid [facility] 12-11-2023 08:44-0400 SaO2% (BldA) [Mass fraction] 94 % Andrew Eid [facility] 12-11-2023 08:44-0400 Body temperature 98.24 [degF] Andrew Eid [facility] 12-11-2023 08:43-0400 Diastolic blood pressure 86 mm[Hg] Morales Eli [facility] 12-11-2023 08:43-0400 Mean blood pressure 102 mm[Hg] Andrew Eid [facility] 12-11-2023 08:43-0400 Systolic blood pressure 134 mm[Hg] Andrew Eid [facility] 12-11-2023 08:43-0400 Respiratory rate 15 /min Andrew Eid [facility] 11-06-2023 09:32-0400 Diastolic blood pressure 71 mm[Hg] Cady Alva [facility] 11-06-2023 09:32-0400 Heart rate 79 /min Cady Alva [facility] 11-06-2023 09:32-0400 Mean blood pressure 84 mm[Hg] Cady Alva [facility] 11-06-2023 09:32-0400 Respiratory rate 15 /min Cady Alva [facility] 11-06-2023 09:32-0400 Systolic blood pressure 111 mm[Hg] Cady [employer] [facility] 10-03-2023 16:13-0500 Body height 162.6 cm [email or web address] DO Work Phone: [facility] [employer] 10-03-2023 16:13-0500 Body mass index (BMI) [Ratio] 30.47 kg/m2 [employer] DO Work Phone: [facility] [employer] [facility] 10-03-2023 16:13-0500 Body temperature 97.3 [degF] Robert Furlong DO Work Phone: [facility] 10-03-2023 16:13-0500 Body weight 80.51 kg Robert Furlong DO Work Phone: [facility] [employer] 10-03-2023 16:13-0500 Diastolic blood pressure 60 mm[Hg] Robert Furlong DO Work Phone: [facility] 10-03-2023 16:13-0500 Heart rate 67 /min Robert Furlong DO Work Phone: [facility] 10-03-2023 16:13-0500 SaO2% (BldA) [Mass fraction] 98 % Robert Furlong DO Work Phone: [facility] 10-03-2023 16:13-0500 Systolic blood pressure 118 mm[Hg] Robert Furlong DO Work Phone: [facility] 09-26-2023 15:11-0500 Body height 165.1 cm Martin Arango DPM Work Phone: [facility] 09-26-2023 15:11-0500 Body mass index (BMI) [Ratio] 29.29 kg/m2 Martin Arango DPM Work Phone: [facility] 09-26-2023 15:11-0500 Body weight 79.83 kg Martin Arango DPM Work Phone: [facility] 09-26-2023 15:11-0500 Diastolic blood pressure 80 mm[Hg] Martin Arango DPM Work Phone: [facility] 09-26-2023 15:11-0500 Heart rate 79 /min Martin Arango DPM Work Phone: [facility] 09-26-2023 15:11-0500 Systolic blood pressure 133 mm[Hg] Martin Arango DPM Work Phone: [facility] 09-17-2023 08:23-0500 Blood Pressure Location POLLY YUDY [facility] 09-17-2023 08:23-0500 Diastolic blood pressure 52 mm[Hg] POLLY YUDY [facility] 09-17-2023 08:23-0500 Heart rate 65 /min POLLY YUDY [facility] 09-17-2023 08:23-0500 Respiratory rate 16 /min POLLY MARIANO [facility] 09-17-2023 08:23-0500 Systolic blood pressure 135 mm[Hg] POLLY MARIANO [facility] 08-27-2023 10:30-0500 Body height 165.1 cm Valarie Javier Other [facility] [facility] [employer] Other 08-27-2023 10:30-0500 Body mass index (BMI) [Ratio] 29.28 kg/m2 Valarie Javier Other [employer] Other 08-27-2023 10:30-0500 Body temperature 97.2 [degF] Valarie Javier Other [employer] Other 08-27-2023 10:30-0500 Body weight 79.83 kg Valarie Javier Other [employer] Other 08-27-2023 10:30-0500 Diastolic blood pressure 80 mm[Hg] Valarie Javier Other [employer] Other 08-27-2023 10:30-0500 Respiratory rate 20 /min Valarie Javier Other [employer] Other 08-27-2023 10:30-0500 SaO2% (BldA) [Mass fraction] 93 % Valarie Javier Other [employer] Other 08-27-2023 10:30-0500 Systolic blood pressure 132 mm[Hg] Valarie Javier Other [employer] Other 07-25-2023 10:39-0500 Blood Pressure Location Elliott SOLIS [facility] 07-25-2023 10:39-0500 Diastolic blood pressure 82 mm[Hg] Elliott SOLIS [facility] 07-25-2023 10:39-0500 Heart rate 76 /min Elliott SOLIS [facility] 07-25-2023 10:39-0500 SaO2% (BldA) [Mass fraction] 97 % Elliott SOLIS [facility] 07-25-2023 10:39-0500 Systolic blood pressure 138 mm[Hg] Elliott SOLIS [facility] 07-05-2023 15:44-0500 Blood Pressure Location Cady STANG [facility] 07-05-2023 15:44-0500 Diastolic blood pressure 83 mm[Hg] Cady STANG [facility] 07-05-2023 15:44-0500 Heart rate 70 /min Cady STANG [facility] 07-05-2023 15:44-0500 SaO2% (BldA) [Mass fraction] 99 % Cady STANG [facility] 07-05-2023 15:44-0500 Systolic blood pressure 138 mm[Hg] Cady STANG [facility] 05-20-2023 10:03-0400 Blood Pressure Location Cady STANG [facility] 05-20-2023 10:03-0400 Diastolic blood pressure 80 mm[Hg] Cady STANG [facility] 05-20-2023 10:03-0400 Heart rate 75 /min Cady STANG [facility] 05-20-2023 10:03-0400 SaO2% (BldA) [Mass fraction] 98 % Cady CALIX [facility] 05-20-2023 10:03-0400 Systolic blood pressure 130 mm[Hg] Cady CALIX [facility] 02-26-2023 08:30-0400 Body height 165.1 cm Valarie Javier Other [facility] [employer] Other 02-26-2023 08:30-0400 Body mass index (BMI) [Ratio] 28.25 kg/m2 Valarie Javier Other [employer] Other 02-26-2023 08:30-0400 Body temperature 96.9 [degF] Valarie Javier Other [employer] Other 02-26-2023 08:30-0400 Body weight 77.02 kg Valarie Javier Other [employer] Other 02-26-2023 08:30-0400 Diastolic blood pressure 84 mm[Hg] Valarie Javier Other [employer] Other 02-26-2023 08:30-0400 Respiratory rate 20 /min Valarie Javier Other [employer] Other 02-26-2023 08:30-0400 SaO2% (BldA) [Mass fraction] Valarie Javier Other [employer] Other 02-26-2023 08:30-0400 Systolic blood pressure 138 mm[Hg] Valarie Javier Other [employer] Other 01-17-2023 10:04-0400 Diastolic blood pressure 76 mm[Hg] Poole SALAM [facility] 01-17-2023 10:04-0400 Heart rate 70 /min Poole SALAM [facility] 01-17-2023 10:04-0400 Mean blood pressure 100 mm[Hg] Poole SALAM [facility] 01-17-2023 10:04-0400 Respiratory rate 17 /min Poole SALAM [facility] 01-17-2023 10:04-0400 SaO2% (BldA) [Mass fraction] 99 % Poole SALAM [facility] 01-17-2023 10:04-0400 Systolic blood pressure 149 mm[Hg] Poole SALAM [facility] 01-17-2023 09:55-0400 Diastolic blood pressure 80 mm[Hg] Poole SALAM [facility] 01-17-2023 09:55-0400 Heart rate 74 /min Poole SALAM [facility] 01-17-2023 09:55-0400 Mean blood pressure 97 mm[Hg] Poole SALAM [facility] 01-17-2023 09:55-0400 Respiratory rate 15 /min Poole SALAM [facility] 01-17-2023 09:55-0400 SaO2% (BldA) [Mass fraction] 99 % Poole SALAM [facility] 01-17-2023 09:55-0400 Systolic blood pressure 132 mm[Hg] Poole SALAM [facility] 01-17-2023 09:50-0400 Diastolic blood pressure 79 mm[Hg] Poole SALAM [facility] 01-17-2023 09:50-0400 Heart rate 73 /min Poole SALAM [facility] 01-17-2023 09:50-0400 Mean blood pressure 94 mm[Hg] Poole SALAM [facility] 01-17-2023 09:50-0400 Respiratory rate 13 /min Poole SALAM [facility] 01-17-2023 09:50-0400 SaO2% (BldA) [Mass fraction] 98 % Poole SALAM [facility] 01-17-2023 09:50-0400 Systolic blood pressure 125 mm[Hg] Poole SALAM [facility] 01-17-2023 09:39-0400 Body temperature 98.24 [degF] Poole SALAM [facility] 01-17-2023 08:35-0400 Blood Pressure Location Poole SALAM [facility] 01-17-2023 08:35-0400 Body temperature 98.06 [degF] Poole SALAM [facility] 11-21-2022 12:41-0400 Heart rate 61 /min Martin Arango [facility] 11-21-2022 12:41-0400 SaO2% (BldA) [Mass fraction] 97 % Martin Arango [facility] 11-21-2022 12:41-0400 Diastolic blood pressure 64 mm[Hg] Martin Arango [facility] 11-21-2022 12:41-0400 Mean blood pressure 85 mm[Hg] Martin Arango [facility] 11-21-2022 12:41-0400 Systolic blood pressure 128 mm[Hg] Martin Arango [facility] 11-21-2022 12:41-0400 Body temperature 96.98 [degF] Martin Arango [facility] 11-21-2022 12:40-0400 Respiratory rate 16 /min Martin Arango [facility] 11-21-2022 11:09-0400 Heart rate 66 /min Martin Arango [facility] 11-21-2022 11:09-0400 SaO2% (BldA) [Mass fraction] 100 % Martin Arango [facility] 11-21-2022 11:09-0400 Diastolic blood pressure 68 mm[Hg] Martin Arango [facility] 11-21-2022 11:09-0400 Mean blood pressure 84 mm[Hg] Martin Arango [facility] 11-21-2022 11:09-0400 Systolic blood pressure 116 mm[Hg] Martin Arango [facility] 11-21-2022 11:09-0400 Body temperature 98.06 [degF] Martin Arango [facility] 11-21-2022 11:08-0400 Respiratory rate 14 /min Martin Arango [facility] 11-21-2022 10:55-0400 Body temperature 97.16 [degF] Martin Arango [facility] 11-21-2022 10:55-0400 Diastolic blood pressure 85 mm[Hg] Martin Arango [facility] 11-21-2022 10:55-0400 Heart rate 65 /min Martin Arango [facility] 11-21-2022 10:55-0400 Mean blood pressure 98 mm[Hg] Martin Arango [facility] 11-21-2022 10:55-0400 Respiratory rate 18 /min Martin Arango [facility] 11-21-2022 10:55-0400 SaO2% (BldA) [Mass fraction] 98 % Martin Arango [facility] 11-21-2022 10:55-0400 Systolic blood pressure 123 mm[Hg] Martin Arango [facility] 11-21-2022 10:45-0400 Mean blood pressure 84 mm[Hg] Martin Arango [facility] 11-21-2022 10:45-0400 Respiratory rate 15 /min Martin Arango [facility] 11-21-2022 10:30-0400 Mean blood pressure 73 mm[Hg] Martin Arango [facility] 11-21-2022 10:30-0400 Respiratory rate 13 /min Martin Arango [facility] 11-21-2022 10:15-0400 Respiratory rate 1 /min Martin Arango [facility] 11-21-2022 07:43-0400 Mean blood pressure 100 mm[Hg] Martin Arango [facility] 11-21-2022 07:43-0400 Heart rate 62 /min Martin Arango [facility] 10-30-2022 15:25-0400 Blood Pressure Location Elliott Solis [facility] 10-30-2022 15:25-0400 Diastolic blood pressure 80 mm[Hg] Elliott Will [facility] 10-30-2022 15:25-0400 Heart rate 70 /min Elliott Solis [facility] 10-30-2022 15:25-0400 SaO2% (BldA) [Mass fraction] 95 % Elliott Solis [facility] 10-30-2022 15:25-0400 Systolic blood pressure 126 mm[Hg] Elliott Will [facility] 10-29-2022 14:56-0400 Diastolic blood pressure 86 mm[Hg] Inessa Nicci [facility] 10-29-2022 14:56-0400 Mean blood pressure 103 mm[Hg] Inessa Nicci [facility] 10-29-2022 14:56-0400 Systolic blood pressure 138 mm[Hg] Inessa Nicci [facility] 10-29-2022 14:50-0400 Blood Pressure Location Inessa Nicci [facility] 10-29-2022 14:50-0400 Body temperature 97.88 [degF] Inessa Nicci [facility] 10-29-2022 14:50-0400 Diastolic blood pressure 86 mm[Hg] Inessa Nicci [facility] 10-29-2022 14:50-0400 Heart rate 85 /min Inessa Nicci [facility] 10-29-2022 14:50-0400 Systolic blood pressure 141 mm[Hg] Inessa Nicci [facility] 10-20-2022 10:33-0500 Body temperature 95.9 [degF] Santosaparna Landry [facility] 10-20-2022 10:33-0500 Diastolic blood pressure 73 mm[Hg] Santos Landry [facility] 10-20-2022 10:33-0500 Heart rate 62 /min Santosaparna Landry [facility] 10-20-2022 10:33-0500 Respiratory rate 18 /min Santosaparna Landry [facility] 10-20-2022 10:33-0500 SaO2% (BldA) [Mass fraction] 100 % Santos Landry [facility] 10-20-2022 10:33-0500 Systolic blood pressure 151 mm[Hg] Santos Landry [facility] 10-12-2022 13:06-0500 Body temperature 97.7 [degF] Santos Landry [facility] 10-12-2022 13:06-0500 Diastolic blood pressure 71 mm[Hg] Santos Landry [facility] 10-12-2022 13:06-0500 Heart rate 68 /min Santos Landry [facility] 10-12-2022 13:06-0500 Respiratory rate 18 /min Santos Landry [facility] 10-12-2022 13:06-0500 SaO2% (BldA) [Mass fraction] 98 % Santos Landry [facility] 10-12-2022 13:06-0500 Systolic blood pressure 126 mm[Hg] Santos Landry [facility] 10-02-2022 12:31-0500 Blood Pressure Location Inessa Carmenmetz [facility] 10-02-2022 12:31-0500 Diastolic blood pressure 52 mm[Hg] Inessa Carmenmetz [facility] 10-02-2022 12:31-0500 Heart rate 56 /min Inessa Carmenmetz [facility] 10-02-2022 12:31-0500 SaO2% (BldA) [Mass fraction] 100 % Inessa Grajeda [facility] 10-02-2022 12:31-0500 Systolic blood pressure 136 mm[Hg] Inessa Carmenmetz [facility] 09-06-2022 10:09-0500 Blood Pressure Location Poole SALAM [facility] 09-06-2022 10:09-0500 Diastolic blood pressure 71 mm[Hg] Poole SALAM [facility] 09-06-2022 10:09-0500 Heart rate 70 /min Poole SALAM [facility] 09-06-2022 10:09-0500 Respiratory rate 22 /min Poole SALAM [facility] 09-06-2022 10:09-0500 Systolic blood pressure 145 mm[Hg] Poole SALAM [facility] 09-06-2022 10:05-0500 Blood Pressure Location Poole SALAM [facility] 09-06-2022 10:05-0500 Diastolic blood pressure 66 mm[Hg] Poole SALAM [facility] 01-19-2023 10:05-0500 Heart rate 66 /min Poole SALAM [facility] 09-06-2022 10:05-0500 Respiratory rate 20 /min Poole SALAM [facility] 09-06-2022 10:05-0500 SaO2% (BldA) [Mass fraction] 100 % Poole SALAM [facility] 09-06-2022 10:05-0500 Systolic blood pressure 94 mm[Hg] Poole SALAM [facility] 09-06-2022 10:00-0500 Heart rate 59 /min Poole SALAM [facility] 09-06-2022 10:00-0500 Respiratory rate 17 /min Poole SALAM [facility] 09-06-2022 10:00-0500 Systolic blood pressure 90 mm[Hg] Poole SALAM [facility] 09-06-2022 09:55-0500 SaO2% (BldA) [Mass fraction] 100 % Poole SALAM [facility] 09-06-2022 09:40-0500 Body temperature 96.62 [degF] Poole SALAM [facility] 09-06-2022 07:35-0500 Body temperature 96.62 [degF] Poole SALAM [facility] 07-05-2022 10:00-0500 Body height 165.1 cm Valarie Javier Other [facility] Other 07-05-2022 10:00-0500 Body mass index (BMI) [Ratio] 28.95 kg/m2 Valarie Javier Other [facility] Other 07-05-2022 10:00-0500 Body temperature 97 [degF] Valarie Javier Other [facility] Other 07-05-2022 10:00-0500 Body weight 78.93 kg Valarie Javier Other [facility] Other 07-05-2022 10:00-0500 Diastolic blood pressure 77 mm[Hg] Valarie Javier Other [facility] Other 07-05-2022 10:00-0500 Respiratory rate 20 /min Valarie Javier Other [facility] Other 07-05-2022 10:00-0500 SaO2% (BldA) [Mass fraction] Valarie Javier Other [facility] Other 07-05-2022 10:00-0500 Systolic blood pressure 137 mm[Hg] Valarie Javier Other [facility] Other 05-15-2022 13:22-0400 Diastolic blood pressure 65 mm[Hg] Cady STANG [facility] 05-15-2022 13:22-0400 Mean blood pressure 85 mm[Hg] Cady STANG [facility] 05-15-2022 13:22-0400 Systolic blood pressure 126 mm[Hg] Cady STANG [facility] 05-15-2022 13:08-0400 Blood Pressure Location Cady STANG [facility] 05-15-2022 13:08-0400 Diastolic blood pressure 88 mm[Hg] Cady STANG [facility] 05-15-2022 13:08-0400 Heart rate 62 /min Cady STANG [facility] 05-15-2022 13:08-0400 Respiratory rate 18 /min Cady STANG [facility] 05-15-2022 13:08-0400 SaO2% (BldA) [Mass fraction] 100 % Cady STANG [facility] 05-15-2022 13:08-0400 Systolic blood pressure 140 mm[Hg] Cady STANG [facility] 03-20-2022 13:16-0400 Diastolic blood pressure 72 mm[Hg] Elliott Solis [facility] 03-20-2022 13:16-0400 Heart rate 73 /min Elliott Solis [facility] 03-20-2022 13:16-0400 Mean blood pressure 87 mm[Hg] Elliott Solis [facility] 03-20-2022 13:16-0400 Respiratory rate 18 /min Elliott Solis [facility] 03-20-2022 13:16-0400 Systolic blood pressure 118 mm[Hg] Elliott Solis [facility] 03-06-2022 10:27-0400 Blood Pressure Location Cady STANG [facility] 03-06-2022 10:27-0400 Diastolic blood pressure 78 mm[Hg] Cady STANG [facility] 03-06-2022 10:27-0400 Heart rate 68 /min Cady STANG [facility] 03-06-2022 10:27-0400 Respiratory rate 18 /min Cady STANG [facility] 03-06-2022 10:27-0400 SaO2% (BldA) [Mass fraction] 98 % Cady CALIX [facility] 03-06-2022 10:27-0400 Systolic blood pressure 137 mm[Hg] Cady CALIX [facility] 01-11-2022 15:06-0400 Diastolic blood pressure 83 mm[Hg] Poolevenu CURRYAM [facility] 01-11-2022 15:06-0400 Heart rate 61 /min Poole SALAM [facility] 01-11-2022 15:06-0400 Systolic blood pressure 136 mm[Hg] Poole SALAM [facility] 12-11-2021 12:00-0400 Blood Pressure Location Donaldo PEARSON [facility] 12-11-2021 12:00-0400 Diastolic blood pressure 75 mm[Hg] Donaldo PEARSON [facility] 12-11-2021 12:00-0400 Heart rate 78 /min Donaldo PEARSON [facility] 12-11-2021 12:00-0400 Systolic blood pressure 107 mm[Hg] Donaldo PEARSON [facility] Encounters Encounter Date Encounter Type Care Provider Facility Start: 07-27-2024 End: 07-27-2024 Office outpatient visit 25 minutes Duane Nicole MD Work Phone: [facility] Comment on above: Fibromyalgia Start: 07-23-2024 End: 07-25-2024 Refill Robert Giron DO Work Phone: [facility] Comment on above: Anxiety Start: 07-07-2024 End: 07-07-2024 Emergency department patient visit [facility] Start: 06-28-2024 End: 06-28-2024 Emergency department patient visit ROBERT [facility] Start: 06-18-2024 End: 06-18-2024 Office outpatient visit 15 minutes Martin Arango DPM Work Phone: [facility] Comment on above: 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); Diabetes 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 polyneuropathy, with long-term current use of insulin ([facility]) Start: 06-18-2024 End: 06-18-2024 ambulatory MARTIN ARANGO Not Available Start: 06-18-2024 End: 06-18-2024 Bamboo flowsheet Martin Arango DPM Work Phone: [facility] Start: 06-18-2024 End: 06-18-2024 Bamboo flowsheet Martin Arango DPM Work Phone: [facility] Start: 06-18-2024 End: 06-18-2024 Refill Robert Giron DO Work Phone: [facility] Start: 06-17-2024 End: 06-17-2024 Telephone encounter Leonor Kunz CNA [facility] Start: 06-16-2024 ambulatory [facility] Start: 06-15-2024 End: 06-15-2024 Telephone encounter Karlos Mace DO Work Phone: [facility] Comment on above: L knee pain Start: 06-15-2024 End: 06-15-[address] [facility] Start: 06-11-2024 End: 06-11-2024 Office outpatient new 45 minutes Nataliia Simpson MD Work Phone: Izabel Amato [facility] Comment on above: Leukocytosis, unspec ified type Start: 06-11-2024 End: 06-11-2024 ambulatory NATALIIA SIMPSON [facility] Start: 06-10-2024 End: 06-10-2024 Orders Only Robert Carmencadence DO Work Phone: [facility] Start: 06-09-2024 End: 06-09-2024 Telephone encounter Pastora Alcantara DO Work Phone: [facility] Comment on above: pain Start: 06-08-2024 End: 06-08-2024 Telephone encounter Alexsandra CONWAYC Work Phone: [facility] Start: 06-05-2024 End: 06-05-2024 ambulatory [facility] Start: 06-05-2024 End: 06-05-2024 ambulatory [facility] Start: 05-28-2024 End: 05-28-2024 Refill Robert Carmenradhang DO Work Phone: [facility] Start: 05-28-2024 End: 05-28-2024 Telephone encounter Amaris Huynh MA [facility] Start: 05-26-2024 End: 05-27-2024 Refill Robert Carmenlong DO Work Phone: [facility] Comment on above: Anxiety Start: 05-20-2024 End: 05-20-2024 Office outpatient visit 25 minutes Alexsandra Smart PA-C Work Phone: [facility] Comment on above: 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 (Primary Dx); Chronic pain of left knee Start: 05-20-2024 End: 05-20-2024 ambulatory ALEXSANDRA SMART [facility] Start: 05-18-2024 End: 05-18-2024 ambulatory DUANE NICOLE [facility] Start: 05-18-2024 End: 05-19-2024 Telephone encounter Leonor Kunz BATSHEVA [facility] Start: 05-14-2024 End: 05-14-2024 ambulatory MARTIN ARANGO Not Available Start: 05-04-2024 End: 05-04-2024 ambulatory ROBERT Pam[facility] Start: 04-30-2024 End: 04-30-2024 ambulatory MEDFORD Pamela [facility] Start: 04-27-2024 End: 04-27-2024 ambulatory NURIA SANCHEZ Not Available Start: 04-23-2024 End: 04-23-2024 ambulatory MARTIN Queenie ARANGO Not Available Start: 04-23-2024 End: 04-23-2024 ambulatory MARTIN Queenie BROWN Not Available Start: 04-21-2024 End: 04-21-2024 ambulatory PASTORA ALCANTARA Not Available Start: 04-15-2024 End: 04-15-2024 ambulatory KAYLAH CORONADO Not Available Start: 04-14-2024 End: 04-14-2024 ambulatory PASTORA ALCANTARA Not Available Start: 04-13-2024 End: 04-13-2024 ambulatory CJ B APLING Not Available Start: 04-09-2024 End: 04-09-2024 ambulatory MARTIN Queenie BROWN Not Available Start: 04-08-2024 End: 04-08-2024 ambulatory CJ B APLING Not Available Start: 04-02-2024 End: 04-02-2024 ambulatory MARTIN A BROWN Not Available Start: 03-31-2024 End: 03-31-2024 Patient encounter procedure DO Robert Furlong Work Phone: [facility] [address] Work Phone: Start: 03-31-2024 End: 03-31-2024 ambulatory DO Robert Furlong Work Phone: [facility] Work Phone: Start: 03-27-2024 End: 03-27-2024 ambulatory KURT Talbot [facility] Start: 03-20-2024 End: 03-20-2024 ambulatory ANA CORONADO Not Available Start: 03-17-2024 End: 03-17-2024 ambulatory ANA CORONADO Not Available Start: 03-13-2024 End: 03-13-2024 ambulatory ANA CORONADO Not Available Start: 03-10-2024 End: 03-10-2024 ambulatory ANA CORONADO Not Available Start: 03-05-2024 End: 03-05-2024 ambulatory Andrew Eid [facility] Start: 03-05-2024 End: 03-05-2024 Pain Management Andrew Eid [facility] Start: 02-27-2024 End: 02-27-2024 ambulatory JOEL ALSTON [facility] Start: 02-26-2024 End: 02-26-2024 ambulatory KURT Dahiana [facility] Start: 02-26-2024 Encounter for other preprocedural examination ROBERT GIRON [facility] Start: 02-21-2024 End: 02-21-2024 ambulatory FRENCH LEVINE Not Available Start: 02-18-2024 End: 02-18-2024 ambulatory CATY MALHOTRA Not Available Start: 02-06-2024 End: 02-06-2024 ambulatory KAYLAH Ashely IVONNE Not Available Start: 02-04-2024 End: 02-04-2024 ambulatory ANDRIA CARTER Not Available Start: 01-31-2024 End: 02-01-2024 Emergency department patient visit KAMILLE JACKSON [facility] Start: 01-30-2024 End: 01-30-2024 ambulatory XXXX NONE [place] Start: 01-30-2024 End: 01-30-2024 Patient encounter procedure En Carmen [facility] Start: 01-24-2024 End: 01-24-2024 ambulatory CATY MALHOTRA Not Available Start: 01-23-2024 End: 01-23-2024 ambulatory [facility] Start: 01-21-2024 End: 01-21-2024 ambulatory CATY MALHOTRA Not Available Start: 01-20-2024 End: 01-20-2024 ambulatory [facility] Start: 01-20-2024 End: 01-20-2024 ambulatory NURIA SANCHEZ Not Available Start: 01-17-2024 End: 01-17-2024 ambulatory ROBERT Santiago [facility] Start: 01-16-2024 End: 01-16-2024 ambulatory KAYLAH CORONADO Not Available Start: 01-15-2024 End: 01-15-2024 ambulatory PA-C Cady Alva [place] Start: 01-15-2024 End: 01-15-2024 Pain Management Cady Alva [facility] Start: 01-01-2024 End: 01-01-2024 ambulatory Cady Alva [facility] Start: 01-01-2024 End: 01-01-2024 Pain Management Cady Alva [facility] Start: 12-31-2023 End: 12-31-2023 ambulatory POLLY MARIANO Facility:[facility] Start: 12-31-2023 End: 12-31-2023 Patient encounter procedure POLLY MARIANO [facility] Start: 12-26-2023 End: 12-26-2023 ambulatory MARTIN ARANGO Not Available Start: 12-18-2023 End: 12-18-2023 ambulatory [facility] Start: 12-13-2023 End: 12-13-2023 ambulatory [facility] Start: 12-12-2023 End: 12-12-2023 ambulatory MARTIN ARANGO Not Available Start: 12-11-2023 End: 12-11-2023 ambulatory DO Andrew Eid [facility] Start: 12-11-2023 End: 12-11-2023 Pain Management Andrew Eid [facility] Start: 11-21-2023 Refill Robert augustin DO Work Phone: [facility] Start: 11-21-2023 End: 11-21-2023 ambulatory MARTIN ARANGO Not Available Start: 11-20-2023 End: 11-20-2023 ambulatory NURIA SANCHEZ Not Available Start: 11-06-2023 End: 11-06-2023 ambulatory Cady Alva [facility] Start: 11-06-2023 End: 11-06-2023 Pain Management Cady Alva [facility] Start: 11-04-2023 Refill Robert Worthy ng DO [facility] Start: 11-01-2023 Orders Only Fiona Rockwell [employer]OTH [employer]ER[employer]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 Work Phone: [facility] Start: 10-31-2023 End: 10-31-2023 ambulatory MARTIN ARANGO Not Available Start: 10-30-2023 Refill Simi Petty [facility] Comment on above: Anxiety state; Type 2 diabetes mellitus without complication, without long-term current use of insulin ([facility]); Type 2 diabetes mellitus with diabetic mononeuropathy, without long-term current use of insulin ([facility]) Start: 10-24-2023 End: 10-24-2023 ambulatory MARTIN ARANGO Not Available Start: 10-17-2023 End: 10-17-2023 ambulatory MARTIN ARANGO Not Available Start: 10-03-2023 End: 10-03-2023 ambulatory ROBERT GIRON [facility] Start: 10-03-2023 End: 10-03-2023 Office outpatient visit 15 minutes Robert Giron DO Work Phone: [facility] Comment on above: Pre-op evaluation (P rimary Dx); Hallux valgus of right foot; Essential hypertension; Diabetic peripheral neuropathy (CMS-HCC) Start: 10-03-2023 End: 10-03-2023 Preprocedural examination done Robert Giron DO Work Phone: [facility] Work Phone: Start: 09-27-2023 Telephone encounter Nuria Sanchez MD Work Phone: [facility] Start: 09-26-2023 End: 09-26-2023 Office [...] 09-26-2023 Refill Robert augustin DO Work Phone: [facility] Start: 09-20-2023 Refill Nuria moreira MD Work Phone: [facility] H NE[facility]O 210 Comment on above: Chronic bilateral lo w back pain with bilateral sciatica; Diabetic peripheral neuropathy (CMS/HCC); Lumbar radiculopathy Start: 09-19-2023 End: 09-19-2023 ambulatory Valarie Conley Other [facility] Other Start: 09-19-2023 Telephone encounter Valarie Conley [facility] Start: 09-17-2023 End: 09-17-2023 ambulatory POLLY MARIANO Facility:[facility] Start: 09-17-2023 End: 09-17-2023 Patient encounter procedure POLLYYOVANY MARIANO [facility] Start: 09-16-2023 End: 09-19-2023 ambulatory ROBERT GIRON [facility] Start: 09-08-2023 Refill Robert augustin DO Work Phone: [facility] Start: 09-02-2023 Orders Only Robert augustin DO Work Phone: [facility] Comment on above: Anxiety state Start: 08-28-2023 End: 08-28-2023 ambulatory NURIA SANCHEZ Not Available Start: 08-27-2023 End: 08-27-2023 ambulatory Valarie Javier Other [employer] Other Start: 08-27-2023 Office outpatient vi sit 25 minutes Valarie Javier [facility] Start: 08-23-2023 Orders Only Robert augustin DO [facility] Comment on above: 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, sciatica laterality unspecified Start: 08-20-2023 End: 08-20-2023 ambulatory ANDRIA CARTER Not Available Start: 08-16-2023 Refill Robert augustin DO Work Phone: [facility] Comment on above: Oral thrush Start: 08-09-2023 End: 08-09-2023 ambulatory FRENCH LEVINE Not Available Start: 08-08-2023 End: 08-08-2023 ambulatory MARTIN ARANGO Not Available Start: 08-06-2023 End: 08-06-2023 ambulatory ИВАН HARMAN Not Available Start: 08-05-2023 End: 08-06-2023 Emergency department patient visit PHIL [facility] Start: 08-01-2023 End: 08-01-2023 ambulatory ИВАН HARMAN Not Available Start: 07-25-2023 End: 07-25-2023 ambulatory XXXX NONE [place] Start: 07-25-2023 End: 07-25-2023 Patient encounter procedure Elliott SOLIS [facility] Start: 07-22-2023 End: 07-22-2023 ambulatory RITCHIE Coto MARINADENISE Not Available Start: 07-18-2023 End: 07-18-2023 ambulatory ИВАН HARMAN Not Available Start: 07-08-2023 End: 07-08-2023 ambulatory ROSHAN HOLLOWAY Not Available Start: 07-05-2023 End: 07-05-2023 Patient encounter procedure Cady CALIX [facility] Start: 07-05-2023 End: 07-05-2023 ambulatory XXXX NONE [place] Start: 07-04-2023 End: 07-04-2023 ambulatory MARTIN Jerome CONCHITA Not Available Start: 06-24-2023 End: 06-25-2023 ambulatory NURIA [facility] Start: 06-14-2023 End: 06-14-2023 ambulatory MANAGER WELDING Cady Jett [facility] Start: 06-14-2023 End: 06-14-2023 Patient encounter procedure Cady CALIX [facility] Start: 05-22-2023 End: 05-22-2023 ambulatory Inessa Grajeda Facility:[facility] Start: 05-22-2023 End: 05-22-2023 Patient encounter procedure Inessa Grajeda [facility] Start: 05-20-2023 End: 05-20-2023 ambulatory XXXX NONE [facility] Start: 05-20-2023 End: 05-20-2023 Patient encounter procedure Cady CALIX [facility] Start: 05-16-2023 End: 05-16-2023 ambulatory XXXX NONE [facility] Start: 04-04-2023 End: 04-04-2023 ambulatory Valarie Javier Other [employer] Other Start: 04-04-2023 Telephone encounter Valarie Javier [facility] Start: 04-03-2023 End: 04-03-2023 ambulatory DO Robert Furlong Work Phone: [facility] Work Phone: Start: 04-03-2023 End: 04-03-2023 Patient encounter procedure DO Robert Furlong Work Phone: [facility] [address] Work Phone: Start: 02-26-2023 End: 02-26-2023 ambulatory Valarie Javier Other [employer] Other Start: 02-26-2023 Office outpatient vi sit 25 minutes Valarie Javier [facility] Start: 01-17-2023 End: 01-17-2023 Patient encounter procedure Zulema CRAMER [facility] Start: 12-22-2022 End: 01-16-[address] DOCTOR GALLO Facility:[facility] Start: 12-21-2022 End: 12-22-[address] DOCTOR GALLO Facility:[facility] Start: 11-29-2022 End: 11-29-[address] ROBERT GIRON Facility:[facility] Start: 11-26-2022 End: 11-26-[address] ROBERT GIRON Facility:[facility] Start: 11-21-2022 End: 11-21-2022 Admission to same day surgery center Martin Arango [facility] Start: 10-30-2022 End: 10-30-2022 Patient encounter procedure Elliott J Will [facility] Start: 10-29-2022 End: 10-29-2022 Patient encounter procedure Inessarm Grajeda [facility] Start: 10-20-2022 End: 10-20-2022 Emergency department patient visit Santos Landry [facility] Start: 10-12-2022 End: 10-12-2022 Emergency department patient visit Santos Landry [facility] Start: 10-02-2022 End: 10-02-2022 Patient encounter procedure Inessa Carmenmetz [facility] Start: 09-14-2022 End: 11-01-2022 Pre-admission assessment Zulema CRAMER [facility] Start: 09-10-2022 End: 09-11-[address] DAVID VILLALOBOS . Facility:[facility] Start: 09-06-2022 End: 09-06-2022 Patient encounter procedure Poolevenu CRAMER [facility] Start: 09-04-2022 End: 09-04-2022 ambulatory Valarie Javier Other [facility] Other Start: 09-04-2022 Telephone encounter Valarie Javier [facility] Start: 08-10-2022 ambulatory ELIUD JAJA Facility :[facility] Start: 08-06-2022 End: 08-07-[address] DAVID VILLALOBOS . Facility:[facility] Start: 07-05-2022 End: 07-05-2022 ambulatory Valarie Javier Other [facility] Other Start: 07-05-2022 Office outpatient vi sit 25 minutes Valarie Javier [facility] Start: 07-04-2022 End: 07-05-2022 ambulatory VALARIE JAVIER Facility:[facility] Start: 07-03-2022 End: 07-03-[address] SOLO CHA . Facility:[facility] Start: 06-26-2022 End: 11-28-2022 Recurring Zulema CRAMER [facility] Start: 06-08-2022 End: 06-09-[address] DOCTOR GALLO Facility:H1 Start: 05-15-2022 End: 05-15-2022 Patient encounter procedure Cady CALIX [facility] Start: 05-09-2022 End: 09-09-2022 Recurring Zulema CRAMER [facility] Start: 05-09-2022 End: 06-19-2022 Pre-admission assessment Zulema CRAMER [facility] Start: 04-30-2022 End: 05-01-[address] ROBERT GIRON Facility:H1 Start: 04-09-2022 End: 05-02-2022 Pre-admission assessment Donaldo PEARSON [facility] Start: 04-06-2022 End: 04-07-2022 ambulatory ELIUD WILKINSON Facility:H1 Start: 04-01-2022 End: 04-01-2022 ambulatory JAMAR SRIVASTAVA . Facility:H1 Start: 03-28-2022 End: 03-29-[address] DOCTOR GALLO Facility:[facility]1 Start: 03-20-2022 End: 03-20-2022 Patient encounter procedure Elliott J Will [facility] Start: 03-13-2022 End: 03-13-2022 ambulatory JAMAR SRIVASTAVA . Facility: Start: 03-06-2022 End: 09-07-2022 Pre-admission assessment Elliott Grewal Sol[facility] Start: 03-06-2022 End: 03-06-2022 Patient encounter procedure Cady CALIX [facility] Start: 02-08-2022 End: 06-20-2022 Recurring Poole SALAM [facility] Start: 02-08-2022 End: 02-09-2022 Pre-admission assessment Poole SALAM [facility] Start: 02-01-2022 End: 02-01-2022 Patient encounter procedure Poole SALAM [facility] Start: 01-11-2022 End: 05-02-2022 Recurring Poole SALAM [facility] Start: 01-11-2022 End: 01-11-2022 Patient encounter procedure Poole SALAM [facility] Start: 12-20-2021 End: 03-22-2022 Recurring Poole SALAM [facility] Start: 12-11-2021 End: 12-11-2021 Patient encounter procedure Donaldo PEARSON [facility] Renetta Start: 11-21-2021 End: 11-21-2021 Patient encounter procedure Ienssa Grajeda [facility] Start: 10-12-2021 End: 01-30-2022 Recurring Martin Arango [facility] Start: 04-19-2021 End: 04-19-2021 Subsequent hospital visit by physician Joann Angela Work Phone: Radiology Comment on above: Pain [R52] Right elbow pain [M2 5.521] Procedures Date Procedure Procedure Detail Performing Clinician Start: 05-04-2024 Cyclic citrullinated peptide antibody ROBERT GIRON Comment on above: Result Comment: Interpretation-------- <3 Negative >=3 Positive Performed By: #### C RT #### [facility] ([id number]) [address] [place] [address], [address] [place] [address] Start: 04-30-2024 Adult depression screening assessment Leonor Kunz [employer] Start: 04-08-2024 History of decompression of median nerve History of carpal tunnel surgery Leonor Kunz [employer] Start: 03-31-2024 CT of lungs DO Robert Giron Work Phone: Start: 12-13-2023 Follow-up visit Follow-up JOEL ALSTON Start: 12-11-2023 Epidural injection of lumbar spine using fluoroscopic guidance Cady Alva Comment on above: L4-L5 no relief, made worse Start: 10-03-2023 Adult depression screening assessment Robert Giron DO Work Phone: Start: 09-27-2023 Mammography Robert Worthyng DO Work Phone: Start: 06-20-2023 Adult depression screening assessment Robert Giron DO Work Phone: Start: 04-03-2023 CT of lungs DO Robert Giron Work Phone: Start: 01-21-2023 Colonoscopy Robert Giron DO Work Phone: Start: 01-17-2023 Colonoscopy Amaris Huynh MA Start: 01-17-2023 Colonoscopy Zulema CRAMER Start: 11-21-2022 Hammer toe (disorder) Martin Brown Start: 11-21-2022 Metatarsal bone structure (body structure) Martin Brown Start: 10-22-2022 Microalbumin [Mass/volume] in Urine by Test strip Robert Giron DO Work Phone: Start: 09-10-2022 Mammography Robert Giron Dimple Dough Work Phone: Start: 03-29-2022 Esophagogastroduodenoscopy Zulema CRAMER [...] Downs tz Colonoscopy Inessa Grajeda Colonoscopy Poole SALROGERIO Cystopexy Inessa Grajeda Decompression of median nerve [...] Inessarm Grajeda ingrown toenail removal 10 M [address] [employer] Comment on above: x3 ingrown toenail removal 11 M [employer] Comment on above: x3 ingrown toenail removal 12 A gabriele [employer] Comment on above: x3 ingrown toenail removal 9 Be th [facility] Comment on above: x3 Ligation of fallopian tube [facility] Lithotripsy Inessa Grajeda Downey's metatarsalgia (disorder) [...] for malign ant neoplasm of colon [facility] Start: 01-17-2033 Screening for malign ant neoplasm of colon [facility] Start: 07-07-2025 Adult BMI Screening Adult [facility] Start: 07-07-2025 Tobacco Screening Tobacco Screening [facility] [employer] [facility] Start: 06-11-2025 Adult BMI Screening Adult BMI Screen ing [facility] Start: 06-11-2025 Tobacco Screening Tobacco Screening [facility] Start: 06-05-2025 Tobacco Screening Tobacco Screening [facility] Start: 05-20-2025 Adult BMI Screening Adult BMI Screen ing [facility] Start: 05-20-2025 Tobacco Screening Tobacco Screening [facility] Start: 05-18-2025 Adult BMI Screening Adult BMI Screen ing [facility] Start: 05-18-2025 Tobacco Screening Tobacco Screening [facility] Start: 04-30-2025 Depression Screening Depression Scre ening [facility] Start: 01-05-2025 ambulatory Ambulatory Facility:[facility] Start: 10-03-2024 Adult BMI Screening Adult BMI Screen ing [facility] Start: 10-03-2024 Depression Screening Depression Scre ing [facility] Start: 10-03-2024 Tobacco Screening Tobacco Screening [facility] Start: 09-27-2024 Screening for malign ant neoplasm of breast Mammogram [facility] Start: 09-15-2024 End: 09-15-2024 Patient encounter procedure 09/15/2024 3:30 PM EST [facility] [address] [place] [address] Robert Giron DO [address], [place] [address] [facility] Start: 08-05-2024 Adult BMI Screening Adult BMI Screen ing [facility] Start: 08-05-2024 Tobacco Screening Tobacco Screening [facility] Start: 07-30-2024 End: 07-30-2024 Patient encounter procedure 07/30/2024 1:30 PM EST [facility] [address] [place] [address] Robert Giron DO [address], [place] [address] [facility] Start: 07-27-2024 End: 07-27-2024 Telemedicine consultation with patient 07/27/2024 2:15 PM EST Telemedicine [facility] [address] [phone] Duane Nicole MD [address] [address] [facility] Start: 07-27-2024 End: 07-27-2024 [facility] Start: 07-10-2024 Adult BMI Follow Up Plan Adult BMI Follow Up Plan [facility] Start: 07-08-2024 Diabetic foot examination Diabetic Foot Exam [facility] Start: 07-08-2024 End: 07-08-2024 Patient encounter procedure 07/08/2024 2:00 PM EST Office Visit [facility] [address] [place] [phone] Alexsandra Smart PA-C [address] [place], [place] [phone] [facility] Start: 07-07-2024 End: 07-07-2024 Patient encounter procedure 07/07/2024 1:00 PM EST Office Visit [facility] [address] [place] [address] David Villalobos DO [address] [facility] [place] [address] [facility] Start: 06-20-2024 Depression Screening Depression Scre [facility] Start: 06-19-2024 End: 06-19-2024 Admission to same day surgery center 06/19/2024 8:51 AM EDT - 06/19/2024 8:58 AM EDT Surgery [facility] Procedures [address] [place] [phone] Sami Maharaj MD [address] [place] [address] INJECTION BLOCK NERVE KNEE Left Genicular NB [55629 (CPT )] [facility] Comment on above: INJECTION BLOCK NERV E KNEE Left Genicular NB [01290 (CPT )] Start: 06-19-2024 End: 06-19-2024 Injection aa&/strd genicular nrv branches w/img INJECTION BLOCK NERVE KNEE Primary osteoarthritis of left knee Chronic pain of left knee 06/19/2024 8:51 AM EDT [facility] Start: 06-19-2024 Subsequent hospital visit by physician 06/19/2024 8:51 AM EDT Hospital Encounter [facility] [address] [place] [phone] Sami Maharaj MD [address] [place], [place] [phone] [facility] Start: 06-18-2024 End: 06-18-2024 Patient encounter procedure 06/18/2024 3:00 PM EDT Office Visit [facility] [address] [facility] [address] [place] [phone] Martin Arango, SALLIE [address] [facility] [address] [place] [address] Arrived [facility] Comment on above: Arrived Start: 06-15-2024 End: 06-15-2024 Patient encounter procedure 06/15/2024 11:00 AM EDT Appointment [facility] Ultrasound [address] [place] [phone] [facility] Start: 06-11-2024 End: 06-11-2024 Patient encounter procedure 06/11/2024 3:30 PM EDT Office Visit Izabel Bravo [facility] [address] [place] [address] Nataliia Simpson MD [address] [facility] [address] [place] [address] Izabel Bravo [facility] Start: 05-20-2024 End: 05-20-2024 Patient encounter procedure 05/20/2024 11:00 AM EDT Office Visit [facility] [address] [place] [phone] Alexsandra Smart, PAAnaC [address] [facility], [address] [place] [address] [facility] Start: 04-19-2024 Covid-19 Vaccine ( season) Covid-19 Vaccine ( season) [facility] Start: 04-19-2024 Influenza vaccination P [facility] Start: 10-28-2023 End: 10-28-2023 Patient encounter procedure 10/28/2023 3:20 PM EDT Office Visit [facility] [address] [facility] [address] [place] [address] Nuria Sanchez MD [address] [facility] [address] [phone] [facility] Start: 10-23-2023 Urine screening for protein Urine Microalbumin [facility] Start: 10-17-2023 End: 10-17-2023 Patient encounter procedure [facility] Start: 10-09-2023 End: 10-09-2023 Patient encounter procedure 10/09/2023 8:30 AM EST Procedure Visit [facility] Martin Arango DPM [address] [facility] [address] [place] [address] [facility] Start: 10-03-2023 End: 10-03-2023 Patient encounter procedure 10/03/2023 3:40 PM EST Office Visit [facility] [address] [place] [address] Robert Giron DO [address], [place] [address] [facility] Start: 09-26-2023 End: 09-26-2023 Patient encounter procedure 09/26/2023 3:10 PM EST Office Visit [facility] [address] [facility] [address] [place] [phone] Martin Arango, DPNnamdi [address] [facility] 5 [place] [address] [facility] Start: 09-16-2023 End: 09-16-2023 ambulatory 09/16/2023 8:30 AM EST Monitor [facility] Infant Monitor [address] [place] [address] [facility] Start: 09-10-2023 Screening for malign ant neoplasm of breast Mammogram [facility] Start: 09-27-2021 Diabetes Screening Diabetes Screenin g [facility] Start: 03-14-2021 Screening for malign ant neoplasm of colon [facility] Start: 2020 Administration of varicella zoster vaccine Zoster (Shingles) Vaccine (1 of 2) [facility] Start: 2020 Shingrix Vaccine (1 of 2) Shingrix Vaccine (1 of 2) [facility] Start: 2015 Lipid panel Lipid Screening [facility] Start: 2015 Screening for malign ant neoplasm of colon [facility] Start: 2010 Screening for malign ant neoplasm of breast Mammogram Screening [facility] Start: 2000 Screening for malign ant neoplasm of cervix [facility] Start: 1991 Screening for malign ant neoplasm of cervix [facility] Start: 1989 DTaP,Tdap and Td Vaccines (1 - Tdap) DTaP,Tdap and Td Vaccines (1 - Tdap) [facility] Start: 1989 Hepatitis B Vaccine (1 of 3 - 19+ 3-dose series) Hepatitis B Vaccine (1 of 3 - 19+ 3-dose series) [facility] Start: 1989 Urine microalbumin profile DTaP,Tdap,Td Vaccine (1 - Tdap) [facility] Start: 1988 Anxiety Screening Anxiety Screening [facility] Start: 1988 Depression Screening Depression Scre ening [facility] Start: 1988 Hepatitis C screening Hepatitis C Sc reening [facility] Start: 1988 HIV screening HIV Screening [facility] Start: 1976 Pneumococcal vaccination Pneum ococcal Vaccine (1 of 2 - PCV) [facility] Start: 1970 Glaucoma screening Diabetic Op hthalmology Exam [facility] Start: 1970 Screening for malign ant neoplasm of colon [facility] Start: 1970 Tobacco Counseling Tobacco Counselin g [facility] Injection aa&/strd genicular nrv branches w/img INJECTION BLOCK NERVE KNEE Primary osteoarthritis of left knee Chronic pain of left knee [facility] Immunizations Immunization Date Immunization Notes Care Provider Zeinab yeung 03-09-2024 zoster vaccine recombinant Leonor Kunz [employer] [facility] 06-24-2023 Covid-19,mrna, Lnp-s , Pf, 50mcg/0.5ml 12+ Robert Giron DO Work Phone: [facility] 06-24-2023 influenza virus vaccine, unspecified formulation POLLY MARIANO [facility] 04-15-2020 influenza virus vaccine, unspecified formulation Cady CALIX [facility] 06-02-2019 hepatitis A vaccine, adult dosage Cady CALIX [facility] 11-21-2018 hepatitis A vaccine, adult dosage Cady CALIX [facility] NEGATED: Highlighted row has not occurred!04-29-2023 influenza virus vaccine, unspecified formulation Cady CALIX [facility] NEGATED: Highlighted row has not occurred!10-29-2022 influenza virus vaccine, unspecified formulation Inessa Grajeda [facility] NEGATED: Highlighted row has not occurred!09-14-2022 influenza virus vaccine, unspecified formulation Inessa Grajeda [facility] NEGATED: Highlighted row has not occurred!05-09-2022 influenza virus vaccine, unspecified formulation Cady CALIX [facility] NEGATED: Highlighted row has not occurred!12-11-2021 influenza virus vaccine, unspecified formulation Donaldo PEARSON [facility] NEGATED: Highlighted row has not occurred!12-11-2021 SARS-CoV-2 (COVID-19) Ad26 vaccine, recombinant Donaldo PEARSON [facility] NEGATED: Highlighted row has not occurred!11-07-2021 influenza virus vaccine, unspecified formulation Inessa Grajeda [facility] NEGATED: Highlighted row has not occurred!09-04-2021 SARS-CoV-2 (COVID-19) Ad26 vaccine, recombinant Inessa Grajeda [facility] Payers Date Payer Category Payer Self-pay [id number] 01-18-2023 Medicaid [facility] [id number] 04-19-2022 Medicaid [id number] 03-19-2019 Unknown MMO MMO [employer] PPO [id number] 03/19/2019-04/18/2022 [address] [place] [address] PPO [id number] 01-17-2017 Private Health Insurance [facility] MEDICAID [id number] 08-19-2004 Medicaid [id number]. [id number] 1970 Unknown [id number] 2.16.840.1.900833.3.579.2. 593 1970 Unknown [id number] 2.16.840.1.802338.3.579.2. 593 1970 Unknown [id number] 2.16.840.1.876556.3.579.2. 593 1970 Unknown [id number] 2.16.840.1.362064.3.579.2. 593 1970 Unknown [id number] 2.16.840.1.180792.3.579.2. 593 1970 Unknown [id number] 2.16.840.1.325877.3.579.2. 593 1970 Unknown [id number] 2.16.840.1.518663.3.579.2. 593 1970 Unknown [id number] 2.16.840.1.859970.3.579.2. 593 1970 Unknown [id number] 2.16.840.1.736138.3.579.2. 593 1970 Unknown [id number] 2.16.840.1.759715.3.579.2. 593 1970 Unknown [id number] 2.16.840.1.836891.3.579.2. 593 1970 Unknown [id number] 2.16.840.1.515603.3.579.2. 593 1970 Unknown [id number] 2.16.840.1.804182.3.579.2. 593 1970 Unknown [id number] 2.16.840.1.802270.3.579.2. 593 1970 Unknown [id number] 2.16.840.1.438750.3.579.2. 593 1970 Unknown [id number] 2.16.840.1.324789.3.579.2. 176 1970 Unknown [id number] 2.16.840.1.236067.3.579.2. 727 1970 Unknown [id number] 2.16.840.1.370789.3.579.2. 727 1970 Unknown [id number] 2.16.840.1.067338.3.579.2. 727 1970 Unknown [id number] 2.16.840.1.773704.3.579.2. 727 1970 Unknown [id number] 2.16.840.1.659430.3.579.2. 727 1970 Unknown [id number] 2.16.840.1.451787.3.579.2. 727 1970 Unknown [id number] 2.16.840.1.355347.3.579.2. 72 1970 Unknown [id number] 2.16.840.1.538670.3.579.2. 72 1970 Unknown [id number] 2.16.840.1.327109.3.579.2 72 1970 Unknown [id number] 2.16.840.1.403567.3.579.2 72 1970 Unknown [id number] 2.16.840.1.039846.3.579.2 72 1970 Unknown [id number] 2.16.840.1.701900.3.579.2. 72 1970 Unknown [id number] 2.16.840.1.367399.3.579.2 1970 Unknown [id number] 2.16.840.1.725152.3.579.2. 72 1970 Unknown [id number] 2.16.840.1.934851.3.579.2. 72 1970 Unknown [id number] 2.16.840.1.937021.3.579.2. 1286 1970 Unknown [id number] 2.16.840.1.850264.3.579.2. 1285 1970 Unknown [id number] 2.16.840.1.112431.3.579.2. 128 1970 Unknown [id number] 2.16.840.1.101492.3.579.2. 1286 1970 Unknown [id number] 2.16.840.1.128076.3.579.2. 1286 1970 Unknown [id number] 2.16.840.1.077445.3.579.2. 1286 1970 Unknown [id number] 2.16.840.1.853234.3.579.2. 1286 1970 Unknown [id number] 2.16.840.1.307896.3.579.2. 1286 1970 Unknown [id number] 2.16.840.1.067922.3.579.2. 1259 1970 Unknown [id number] 2.16.840.1.749910.3.579.2. 1258 1970 Unknown [id number] 2.16.840.1.523728.3.579.2. 9 1970 Unknown [id number] 2.16.840.1.132109.3.579.2. 1258 1970 Unknown [id number] 2.16.840.1.351434.3.579.2. 9 1970 Unknown [id number] 2.16.840.1.696367.3.579.2. 1258 1970 Unknown [id number] 2.16.840.1.725246.3.579.2. 9 1970 Unknown [id number] 2.16.840.1.399920.3.579.2. 1258 1970 Unknown [id number] 2.16.840.1.237657.3.579.2. 1259 1970 Unknown [id number] 2.16.840.1.975661.3.579.2. 1258 1970 Unknown [id number] 2.16.840.1.333886.3.579.2. 1258 1970 Unknown [id number] 2.16.840.1.929853.3.579.2. 1258 1970 Unknown [id number] 2.16.840.1.356662.3.579.2. 1259 1970 Unknown [id number] 2.16.840.1.238927.3.579.2. 1258 1970 Unknown [id number] 2.16.840.1.579475.3.579.2. 1258 1970 Unknown [id number] 2.16.840.1.215816.3.579.2. 1258 1970 Unknown [id number] 2.16.840.1.512197.3.579.2. 1258 1970 Unknown [id number] 2.16.840.1.479258.3.579.2. 1258 1970 Unknown [id number] 2.16.840.1.980178.3.579.2. 1258 1970 Unknown [id number] 2.16840.1.261808.3.579.2. 1258 1970 Unknown [id number] 2.16.840.1.254968.3.579.2. 1258 1970 Unknown [id number] 2.16.840.1.684142.3.579.2. 1258 1970 Unknown [id number] 2.16.840.1.690020.3.579.2. 1258 1970 Unknown [id number] 2.16.840.1.889310.3.579.2. 1258 1970 Unknown [id number] 2.16.840.1.148638.3.579.2. 1258 1970 Unknown [id number] 2.16.840.1.308509.3.579.2. 1258 1970 Unknown [id number] 2.16.840.1.371233.3.579.2. 1258 1970 Unknown [id number] 2.16.840.1.074302.3.579.2. 1258 1970 Unknown [id number] 2.16.840.1.822956.3.579.2. 1259 1970 Unknown [id number] 2.16.840.1.703959.3.579.2. 1259 1970 Unknown [id number] 2.16.840.1.379155.3.579.2. 1259 1970 Unknown [id number] 2.16.840.1.623147.3.579.2. 1259 1970 Unknown [id number] 2.16.840.1.755177.3.579.2. 9 1970 Unknown [id number] 2.16.840.1.421323.3.579.2. 9 1970 Unknown [id number] 2.16.840.1.925037.3.579.2. 9 1970 Unknown [id number] 2.16.840.1.159816.3.579.2. 9 1970 Unknown [id number] 2.16.840.1.077287.3.579.2. 9 1970 Unknown [id number] 2.16.840.1.193034.3.579.2. 9 1970 Unknown [id number] 2.16.840.1.721386.3.579.2. 9 1970 Unknown [id number] 2.16.840.1.475893.3.579.2. 1259 1970 Unknown [id number] 2.16.840.1.089596.3.579.2. 1259 1970 Unknown [id number] 2.16.840.1.475164.3.579.2. 1259 1970 Unknown [id number] 2.16.840.1.980258.3.579.2. 9 1970 Unknown [id number] 2.16.840.1.500700.3.579.2. 1259 1970 Unknown [id number] 2.16.840.1.282748.3.579.2. 1259 1970 Unknown [id number] 2.16.840.1.217527.3.579.2. 1285 1970 Unknown [id number] 2.16.840.1.859408.3.579.2. 1285 1970 Unknown [id number] 2.16.840.1.698901.3.579.2. 1285 1970 Unknown [id number] 2.16.840.1.273666.3.579.2. 1285 1970 Unknown [id number] 2.16.840.1.957678.3.579.2. 1285 1970 Unknown [id number] 2.16.840.1.111805.3.579.2. 1285 1970 Unknown [id number] 2.16.840.1.981498.3.579.2. 1285 1970 Unknown [id number] 2.16.840.1.143084.3.579.2. 1285 1970 Unknown [id number] 2.16.840.1.191037.3.579.2. 1285 1970 Unknown [id number] 2.16.840.1.619306.3.579.2. 1285 1970 Unknown [id number] 2.16.840.1.416600.3.579.2. 1285 1970 Unknown [id number] 2.16.840.1.087412.3.579.2. 1285 1970 Unknown [id number] 2.16.840.1.624954.3.579.2. 1285 1970 Unknown [id number] 2.16.840.1.210580.3.579.2. 1285 1970 Unknown [id number] 2.16.840.1.983092.3.579.2. 1285 1970 Unknown [id number] 2.16.840.1.358432.3.579.2. 1286 1970 Unknown [id number] 2.16.840.1.679195.3.579.2. 1286 1970 Unknown [id number] 2.16.840.1.450132.3.579.2. 1286 08-19-1959 Medicaid [id number] 08-19-1959 Private Health Insurance [id number] 08-19-1959 Unknown [id number] 08-19-1959 Unknown [id number] Unknown [id number] 2.16.840.1.545350.3.579.2. 531 Social History Date Type Detail Facility Start: 11-07-2021 End: 01-30-2024 Tobacco smoking status Heavy tobacco smoker (finding) [facility] Comment on above: 1 pack per day smoke r Start: 01-24-2023 End: 07-08-2023 Sex Assigned At Female [facility] Tobacco [facility] Ren[facility] Comment on above: 1 ppd smokes 1 ppd. Tobacco smoking status Never [facility] Start: 1970 Sex Assigned At Female F [facility] Tobacco smoking status No Smokin g Status Entered [facility] Start: 01-04-2022 End: 04-15-2023 Tobacco smoking status NHIS Smoker (finding) [facility] Start: 07-08-2023 Tobacco smoking stat us NHIS Ex-smoker [facility] Start: 08-19-1985 End: 04-15-2023 History of tobacco use [facility] Start: 01-24-2023 End: 07-08-2023 Cigarettes smoked current (pack per day) - Reported 0.8 [facility] Start: 07-08-2023 End: 02-26-2024 Tobacco use and exposure Smokeless tobacco non-user [facility] Start: 08-05-2023 End: 07-27-2024 Alcohol intake [facility] (finding) [facility] Has the [employer], [employer], or water [employer] threatened to shut off services in your home in past 12Mo No [facility] Are you now , , , , never or living with a partner? [facility] How often to you hav e a drink containing alcohol? Monthly or less [facility] How many standard drinks containing alcohol do you have on a typical day? 3 or 4 [facility] How often do you hav e 6 or more drinks on 1 occasion? Never [facility] How hard is it for y ou to pay for the very basics like food, housing, medical care, and heating Not very hard [facility] Do you feel stress - tense, restless, nervous, or anxious, or unable to sleep at night because your mind is troubled all the time - these days [OSQ] To some extent [facility] Start: 07-08-2023 Tobacco Comment Smoke 1 PPD x 10 yea rs [facility] Start: 1970 Sex Assigned At Not on file P [facility] Start: 04-15-1988 End: 02-26-2024 Tobacco smoking status MNIS Smokes tobacco daily [facility] History of tobacco use Passive smoker [facility] Start: 02-21-2023 Alcohol Comment caffeine 1-2 c ups per day [facility] Start: 06-30-2020 Alcoholic beverage intake Current non-drinker of alcohol (finding) [facility] Start: 02-28-2015 Tobacco Comment Vaporization a lso. started to smoke at 12 [facility] Start: 03-20-2021 End: 04-19-2021 Exposure to SARS-CoV-2 (event) Not sure [facility] How many standard drinks containing alcohol do you have on a typical day? 1 or 2 [facility] How often do you hav e 6 or more drinks on 1 occasion? Less than monthly [facility] Start: 10-17-2023 Alcohol Comment caffeine intak e: 1-2 cups per day [facility] Start: 03-24-2024 Gender identity Identifies as female gender (finding) [facility] Start: 03-24-2015 Sex Female (finding) [facility] Medical Equipment Procedure Code Equipment Code Equipment Origin al Text Equipment Identifier Dates Phacoemulsification of cataract with intraocular lens implantation Posterior-chamber intraocular lens, pseudophakic [id number] FDA Start: 12-14-2021 Phacoemulsification of cataract with intraocular lens implantation Posterior-chamber intraocular lens, pseudophakic [id number] FDA Start: 01-04-2022 HAMMERTOE REPAIR Brown [...] Foot R FDA Start: 11-21-2022 HAMMERTOE REPAIR Martin Arango DPM 11/21/22 Non Biological Foot R FDA Start: 11-21-2022 Functional Status Date Assessment Result Facility 03-05-2024 Functional Status N/A [facility] 01-30-2024 Functional Status N/A [facility] 01-15-2024 Functional Status N/A [facility] 01-01-2024 Functional Status N/A [facility] 12-31-2023 Functional Status N/A [facility] 11-06-2023 Functional Status N/A [facility] 09-17-2023 Functional Status N/A [facility] 07-25-[address] [facility] 07-05-[address] [facility] 05-20-[address] [facility] 01-17-2023 Functional Status N/A [facility] 10-30-[address] [facility] 10-29-2022 Functional Status N/A [facility] 10-20-2022 Functional Status N/A [facility] 10-12-2022 Functional Status N/A [facility] 10-02-2022 Functional Status N/A [facility] 09-06-2022 Functional Status N/A [facility] 05-15-[address] [facility] 03-06-2022 Functional Status N/A [facility] Clinical Notes 04-19-2021 to 07-27-2024 Duane Nicole MD - 07/27/2024 2:15 PM Bethany Arango DPM - 06/18/2024 3:00 PM EDTTelephone Encounter - Leonor Kunz CNA - 06/17/2024 12:02 PM Anupam Simpson MD - 06/11/2024 3:30 PM EDT Note Date & Type Note Facility 07-27-2024 History of Present illness Narrative Images from the original note were not included. [address] [id number] This virtual visit was made in the [facility] Date of Service: 07/27/2024 Subjective: Keturah Herrera is a 53 y.o. female who presents today for evaluation positive rheumatoid factor. Patient is seen at the request of Robert Giron DO. This is follow-up visit with this patient who is 53-year-old female patient presenting today as an established patient for follow-up of fibromyalgia was seen 1st time on 05/18/2024 Patient symptoms started in 2013 with widespread musculoskeletal pain as well as fatigability, poor sleep, feeling tired and exhausted, no history of joint swelling In addition she has been having neck pain as well as low back pain Lab tests done previously 05/04/2024 JAIME screen, CCP, rheumatoid factor negative, both ESR CRP normal, CBC white count 13.4. Patient has been given the following medications including, atorvastatin, carvedilol, , furosemide, inhalers, nortriptyline, VESIcare. Patient had side effects from Cymbalta, fluoxetine, gabapentin, Lyrica, methocarbamol, Skelaxin, 9 she has tried also Flexeril Zanaflex did not work Current medications orphenadrine, patient did not tolerate amitriptyline caused nausea. Today July 27/2024 patient still symptomatic regarding fibromyalgia The following portions of the patient's history were reviewed and updated as appropriate: allergies, current medications, past family history, past medical history, past social history, past surgical history and problem list. Review of Systems: Review of Systems Constitutional: Positive for fatigue. Musculoskeletal: Positive for arthralgias. Diffuse musculoskeletal pain , feels tired in the morning, exhausted and easy fatigability during daytime Psychiatric/Behavioral: Positive for sleep disturbance. Current Outpatient Medications Medication Sig Dispense Refill albuterol (PROVENTIL HFA;VENTOLIN HFA) 90 mcg/actuation inhaler Inhale 2 puffs every 6 (six) hours as needed for wheezing. alcohol swabs (ALCOHOL PREP PADS) pads, medicated Apply 1 Pad topically every 14 (fourteen) days. Clean area prior to placing sensor 40 each 0 alendronate (FOSAMAX) 70 mg tablet TAKE ONE TABLET BY MOUTH ONCE WEEKLY 30 MINUTES BEFORE THE FIRST FOOD, BEVERAGE, OR MEDICINE OF THE DAY WITH PLAIN WATER ALPRAZolam (XANAX) 1 mg tablet TAKE ONE TABLET BY MOUTH THREE TIMES A DAY NEEDED FOR ANXIETY 90 tablet 4 ammonium lactate (LAC-HYDRIN) 12 % lotion Apply topically 2 (two) times a day. 400 g 0 ARIPiprazole (ABILIFY) 15 mg tablet take one tablet by mouth once daily 30 tablet 5 atorvastatin (LIPITOR) 80 mg tablet TAKE ONE TABLET BY MOUTH ONCE DAILY 30 tablet 11 calcium carbonate (OS-LARRY) 600 mg (1,500 mg) tablet TAKE ONE TABLET BY MOUTH TWICE A DAY FOR 30 DAYS carvediloL (COREG) 25 mg tablet TAKE ONE TABLET BY MOUTH TWICE A DAY celecoxib (CeleBREX) 100 mg capsule Take 1 capsule (100 mg total) by mouth in the morning and 1 capsule (100 mg total) before bedtime. 60 capsule 2 cetirizine (ZyrTEC) 10 mg tablet take one tablet by mouth once daily 30 tablet 11 dilTIAZem CD (CARDIZEM CD) 120 mg 24 hr capsule TAKE ONE CAPSULE BY MOUTH ONCE DAILY 30 capsule 11 diphenhydrAMINE (BenadryL) 25 mg capsule Take 1 capsule (25 mg total) by mouth every 6 (six) hours as needed for itching or allergies. MAY CAUSE DROWSINESS. HOLD hydroxyzine while taking this medication. 15 capsule 0 EPINEPHrine (EPIPEN) 0.3 mg/0.3 mL auto-injector Inject 0.3 mL (0.3 mg total) into the appropriate muscle as needed (As needed for allergic reaction) for up to 1 dose. 1 each 0 ergocalciferol (VITAMIN D2) 1,250 mcg (50,000 unit) capsule take one capsule by mouth once weekly 4 capsule 5 flash glucose scanning reader (FREESTYLE LUCERO 14 DAY READER) misc 1 Unit by miscellaneous route in the morning. 1 each 0 flash glucose sensor (FREESTYLE LUCERO 14 DAY SENSOR) kit 1 each by miscellaneous route every 14 (fourteen) days. 6 kit 1 fremanezumab-vfrm (BMG ControlsOVY AUTOINJECTOR) 225 mg/1.5 mL 1.5 mL (225 mg total) every 30 (thirty) days. furosemide (LASIX) 20 mg tablet take one tablet by mouth once daily 30 tablet 11 imipramine (TOFRANIL) 25 mg tablet Take 1 tablet (25 mg total) by mouth nightly. 30 tablet 5 ipratropium-albuteroL (DUONEB) 0.5 mg-3 mg(2.5 mg base)/3 mL nebulizer Inhale 3 mL by nebulization every 4 (four) hours as needed. lemborexant 5 mg tablet One tab at bed time 30 tablet 5 lidocaine (LIDODERM) 5 % Place 1 patch on the skin daily. Remove & Discard patch within 12 hours or as directed by MD 30 patch 0 loperamide (IMODIUM) 2 mg capsule TAKE 2 CAPSULES BY MOUTH AFTER 1ST LOOSE STOOL AND 1 CAPSULE AFTER EACH NEXT BOWEL MOVEMENT; DO NOT EXCEED 16MG (8 CAPSULES) IN 24 HOURS 20 capsule 1 meclizine (ANTIVERT) 25 mg tablet Take 1 tablet (25 mg total) by mouth 3 (three) times a day as needed for dizziness. 20 tablet 1 metFORMIN (GLUCOPHAGE) 500 mg tablet TAKE 1 TABLET (500 MG TOTAL) BY MOUTH DAILY WITH BREAKFAST. 30 tablet 11 montelukast (SINGULAIR) 10 mg tablet TAKE ONE TABLET BY MOUTH DAILY IN THE EVENING 30 tablet 11 hcbkihms-kxad-LQ-calcium &mins (THERAGRAN-M) 9 mg iron-400 mcg tablet Take 1 tablet by mouth in the morning. nebulizer accessories misc 1 Tube by inhal. via small vol.nebulizer route every 6 (six) months. 1 each 1 nebulizers misc 1 Unit by miscellaneous route every 6 (six) months. 1 each 1 nystatin (MYCOSTATIN) cream APPLY TO AFFECTED AREA VIA TOPICAL ROUTE TWICE A DAY 15 g 0 omeprazole (PriLOSEC) 40 mg capsule TAKE ONE CAPSULE BY MOUTH ONCE DAILY BEFORE MEAL 30 capsule 5 ondansetron ODT (ZOFRAN ODT) 4 mg disintegrating tablet Dissolve 1 tablet (4 mg total) on tongue every 8 (eight) hours as needed for nausea or vomiting. 10 tablet 1 orphenadrine (NORFLEX) 100 mg 12 hr tablet Take 1 tablet (100 mg total) by mouth in the morning. One tab at 8 PM. 30 tablet 5 rimegepant (NURTEC ODT) 75 mg tablet,disintegrating Nurtec ODT 75 mg disintegrating tablet DISSOLVE 1 TABLET BY MOUTH AT ONSET OF MIGRAINE solifenacin (VESICARE) 10 mg tablet Take 1 tablet (10 mg total) by mouth in the morning. thiamine mononitrate, vit B1, (VITAMIN B-1, MONONITRATE,) 100 mg tablet Take 1 tablet (100 mg total) by mouth in the morning and 1 tablet (100 mg total) before bedtime. No current facility-administered medications for this visit. Physical Exam: ODOM-28 (If Applicable) There is currently no information documented on the homunculus. Go to the Rheumatology activity and complete the homunculus joint exam. ODOM-28 (CRP): -- ODOM-28 (ESR): -- Tender (ODOM-28): -- Swollen (ODOM-28): -- There were no vitals taken for this visit.: reviewed Labs and Imaging: reviewed and discussed with the patient during the visit.I Lab Results Component Value Date WBC 14.8 (H) 07/07/2024 HGB 14.6 07/07/2024 HCT 42.7 07/07/2024 MCV 98 07/07/2024 CRP 0.3 05/04/2024 GFR >60 09/27/2018 GFR >60 09/27/2018 AST 19 07/07/2024 AST 58 (H) 12/12/2014 Imaging: Assessment and Plan: Keturah Herrera is a 53 y.o. female patient with: 1. Fibromyalgia - orphenadrine (NORFLEX) 100 mg 12 hr tablet; Take 1 tablet (100 mg total) by mouth in the morning. One tab at 8 PM. Dispense: 30 tablet; Refill: 5 - lemborexant 5 mg tablet; One tab at bed time Dispense: 30 tablet; Refill: 5 At this point of time patient continued to be symptomatic, was intolerant to imipramine. Will keep patient on Norflex and restart limb Doron sent which she has not started for unknown reason. Return to clinic 6 months. This visit is being conducted via Video at the request of the patient and for regular follow-up care. This is a vidio encountetrt is being used in lieu of a jdhh-ih-ciir encounter because of current pandemic situation related to Covid-19. This is to avoid xopc-an-vqwj contact whenever possible and limit spread of the virus. This visit is considered a video visit, which is to help assess your current healthcare needs and to determine the appropriate care you may require. This visit may be a billable service through the insurance company. Patient has consented to moving forward with this tele video visit? Yes This note was created with the assistance of a speech recognition program. While intending to generate a timely document that accurately reflects the content of the visit, no guarantee can be provided that every grammatical or spelling mistake has been or will be identified or corrected. Thank you for your understanding. [facility] Rheumatology Dr. Duane Nicole MD [address] [facility] [place] [address] Office: [phone] documented in this encounter [facility] 06-18-2024 History of Present illness Narrative Patient: Keturah Herrera : 1970 PCP: Robert Giron MD SUBJECTIVE Patient presents today for follow-up of EDL tendinitis to right foot and has not been using Voltaren gel with Tylenol and states negative relief and rates pain a 3 /10. Pt is dm2 Patient has history of right foot HAV surgery in the past and has been wearing walking boot with minimal improvement Patient is scheduled for pain management for her left knee Patient has had permanent nail avulsions in the past to the left and right foot Patient presents today with complaints of pain to the distal aspect of the right 2nd toe. She has painful hyperkeratotic lesion to the area had previous right 2nd digit surgery in the past Patient states toe does hit to the end of the shoe and has painful with ambulation up to a 9/10 on 10 pain scale Allergies: Allergies Allergen Reactions Codeine Hives and [...] Behavior, Mental Status Change, other, Vomiting hallucinate [place] Saline Nasal Gel [Aloe-Sodium Chloride] Facial numbness/tongue [...] History: Past Medical History: Diagnosis Date Asthma ([facility]) Bipolar disorder ([facility]/HCC) Bunion COPD (chronic obstructive pulmonary disease) (CMS/HCC) Depression (CMS/HCC) Diabetes (CMS/HCC) Difficulty walking Fallen arches Fibromyalgia Hammer toe Kidney stones Migraine (CMS/HCC) Mitral valve prolapse Downey's neuroma Onychomycosis Osteoarthritis Oxygen dependent Plantar fasciitis Tinea pedis Medications: Current Outpatient Medications: Ajovy 225 MG/1.5ML auto-injector, INJECT 1.5ML SUBCUTANEOUSLY EVERY 30 DAYS, Disp: , Rfl: albuterol (2.5 MG/3ML) 0.083% nebulizer solution, Take 2.5 mg by nebulization every 6 (six) hours., Disp: , Rfl: alendronate (Fosamax) 70 MG tablet, [...] time., Disp: , Rfl: Continuous Blood Gluc Diesel Engine Assembler (Dexcom G6 residence counselor) device, 1 UNIT YEARLY, Disp: , Rfl: Continuous Blood Gluc Sensor (Dexcom G6 Sensor) mis, USE 1 UNIT DIRECTED AND CHANGE EVERY 10 DAYS, Disp: , Rfl: ergocalciferol (Vitamin D2) 1.25 MG (60723 UT) capsule, Take 1 capsule by mouth [...] oral route., Disp: , Rfl: nystatin (Mycostatin) 586371 UNIT/ML suspension, TAKE 5ML FOUR TIMES A [...] FOR NAUSEA AND VOMITING, Disp: , Rfl: oxyCODONE-acetaminophen (Percocet) 5-325 MG tablet, Take 1 tablet by mouth every 8 (eight) hours if needed for severe pain for up to 5 days, Disp: 15 tablet, Rfl: 0 Thiamine Mononitrate 100 MG tablet, Take 1 tablet by mouth in the morning., Disp: , Rfl: tiZANidine (Zanaflex) 4 MG tablet, Take 4 mg by mouth every 6 (six) hours if needed for muscle spasms, Disp: , Rfl: Ventolin HFA 108 (90 Base) MCG/ACT inhaler, Inhale 1 puff in the morning and 1 puff in the evening and 1 puff before bedtime., Disp: , Rfl: ROS: General: denies fever, chills, fatigue, malaise GI: denies abdominal pain or ulcerations with anti-inflammatory medication OBJECTIVE LE EXAM: Derm: Toes left 345 and right 2 and 4 digits have negative erythema with negative serous drainage. Diminished hair growth bilateral Distal right 2nd digit has large hyperkeratotic lesion with negative drainage or erythema Vascular: Palpable pedal pulses to bilateral feet Neuro: 5.07 [place] Gina monofilament test positive to digits and forefoot bilaterally 125Hz tuning fork positive to 1st MPJ bilaterally Musculoskeletal: Positive pain on palpation nails 1 through 5 Ortho: Ankle range of motion less than 10 degrees of dorsiflexion at right ankle joint. Diminished pain on palpation to right EDL tendon complex Minimal pain on palpation to left and right digits Minimal pain on palpation to bilateral nail avulsion sites Positive pain on palpation of right distal phalanx of 2nd digit Notable hypermobility of the DIPJ region of the right 2nd digit Notable slight flexion deformity of the right 2nd digit PIPJ region with extremely elongated great toe that is proximally 2 cm distally in length from the distal tip of the right hallux and right 3rd toe ASSESSMENT 1. Acquired deformity of right toe 2. Diabetes 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 polyneuropathy, with long-term current use of insulin ([facility]) PLAN Patient to continue with oral anti - inflammatories as needed for pain and recommended OTC medications such as tylenol or Ibuprofen Discussed possible treatment option with tube foam given today and trimming of hyperkeratotic lesion to the right 2nd digit. Patient has received surgery anterior shoulder here in the next month I recommend she continue with tube foam to offload the area but did discuss possible treatment options including distal phalanx right 2nd toe amputation secondary to chronic pain to the area and hypermobility. Patient understood and understands that increased hyperkeratosis to lesion may cause possible ulcer infection straight toe and this of the preventative measure to prevent further infection or loss of entire digit in the future/ patient may consider Martin Arango DPM documented in this encounter [facility] 06-17-2024 Miscellaneous Notes Patient notified of US results from Dr. Nicole. (06/16/24) documented in this encounter [facility] 06-17-2024 Telephone encounter Note Patient notified of US results from Dr. Nicole. (06/16/24) [facility] 06-16-2024 Note Orthopaedic Surgery Subjective Pain and New Patient of the Left Arm 06/16/24 Keturah Herrera is a 53 y.o. female new patient referred by Dr. Alcantara presenting with left elbow pain and left wrist pain. She has a notable surgical history of bilateral carpal tunnel and cubital tunnel releases which were performed around 25 years ago. She didn't have symptoms related to these conditions for several years but pain gradually started again about a year ago and have gradually worsened. She endorses radiating shooting pain at the left elbow and wrist intermittently traveling to the ulnar and median nerve sensory distributions of the hand. These symptoms has also affected her knot bumper strength and she has found herself dropping objects more frequently. She has tried a heating pad, tylenol, and Celebrex which have not helped alleviate symptoms. Patient also has symptoms of numbness/tingling from the elbow and carpal tunnel into the hand at rest. Patient reports the same symptoms on the right side but are milder. Patient reports having had an EMG done earlier this year. Patient History No past surgical history on file. No past medical history on file. Objective General: Body mass index is 30.38 kg/m???. No acute distress, comfortable Respiratory: Unlabored work of breathing on room air Cardiovascular: Well perfused extremities, brisk capillary refill Left UE/Hand: Inspection- no swelling, no deformity or contracture, supple skin with no lesions Tender to palpation with light palpation over left medial epicondyle, left cubital tunnel, left carpal tunnel. Slight numbness and tingling along 4th and 5th digits. ROM:full painless motion to all digits and the wrist Strength: knot bumper 5/5, thumb 5/5, interossei 5/5. wrist extension/flexion 5/5 Sensation: intact over median, ulnar, and radial nerve distributions Positive carpal tunnel compression, Positive Tinel's at the Carpal Tunnel, and Positive Tinel's at the Cubital Tunnel Cardiovascular: Well-perfused digits Imaging: None No imaging performed at this visit. Assessment/Plan Keturah Herrera is a 53 y.o. female with recurring symptoms of left sided carpal tunnel syndrome and cubital tunnel syndrome. -We discussed that revision carpal tunnel release and cubital tunnel release would be next step. We answered patient's questions and patient consented after discussion of risks and benefits. -Left Carpal tunnel release and cubital tunnel release with submuscular ulnar nerve transposition scheduled for 08/03/24. -Recommended switching nicotine patch on left shoulder to right arm at least 2 weeks prior to surgery. -Return to clinic as needed prior to surgery -We will review EMG findings upon release . Santos West, MS4 Orthopaedic Surgery 06/16/24 3:55 PM I was physically present with the medical student. I have personally performed (or re-performed) the physical exam and medical decision making for the patient. I personally verified the medical student's documentation. I made pertinent changes as necessary to ensure accurate documentation. Additional Notes/Findings: We were not able to get a copy of the EMGs to review before she left today as the office was closed, and for some reason I do not [facility], although I can see other clinic notes from the neurologist. In any case she is exquisitely tender over the ulnar nerve and the nerve is resting right on the left medial epicondyles. I think that regardless of the EMG, given her symptoms, a revision to a submuscular transposition would be appropriate. She also has recurrent carpal tunnel symptoms and we will tentatively plan to plan on doing a revision carpal tunnel release as well. I will review the EMGs and if there is anything different I will contact her. [facility] 06-16-2024 Note US SOFT TISS HEAD NE CK Procedure: US SOFT TISS HEAD NECK; Reason for Exam: Parotid gland enlargement; Xerostomia; Comparison: None IMPRESSION: * OMERACT 1. Normal sonographic appearance of the parotid gland parenchyma. Normal Doppler flow. * 1.0 x 0.7 x 1.0 cm simple appearing left infraparotid cystic lesion. Finalized by Dandre Prabhakar on 06/16/2024 7:56 AM [facility] 06-15-2024 Miscellaneous Notes Patient called today complaining that the celbrex is making her sick. She is vomiting and she also has thrush in her moth so was wondering what you recommended she do? I sent a nystatin solution for and she can stop the Celebrex or take it with food if she is not taking it with food. She can use Tylenol as well. Patient notified documented in this encounter [facility] 06-15-2024 Telephone encounter Note Patient called today complaining that the celbrex is making her sick. She is vomiting and she also has thrush in her moth so was wondering what you recommended she do? [facility] 06-15-2024 Telephone encounter Note I sent a nystatin solution for and she can stop the Celebrex or take it with food if she is not taking it with food. She can use Tylenol as well. [facility] 06-15-2024 Telephone encounter Note Patient notified [facility] 06-15-2024 Telephone encounter Note Keturah called the office 06/10/24 for left knee pain, I took a yellow note for this and put it up for the doctors to look at. Called pt 06/15/24 to tell her we wouldn't be able to assist her at this time. Told her it was best to follow up with PCP to look at he next step for her. She was understanding. [facility] 06-15-2024 Miscellaneous Notes Keturah called the office 06/10/24 for left knee pain, I took a yellow note for this and put it up for the doctors to look at. Called pt 06/15/24 to tell her we wouldn't be able to assist her at this time. Told her it was best to follow up with PCP to look at he next step for her. She was understanding. documented in this encounter [facility] 06-11-2024 History of Present illness Narrative Images from the original note were not included. [facility] 06/11/24 Keturah Herrera is a 53 y.o. year old female seen today in the oncology clinic. No chief complaint on file. History of Present Illness: Ms. Herrera is a 53 y.o. female with history of COPD, long-term smoker fibromyalgia. She was referred to Hematology for leukocytosis. The patient is smoking 1 pack a day. She also use Medrol Dosepak occasionally. She was found to have a persistent leukocytosis white counts around 13-17 the patient denies any significant infections lately. No lumps and bumps anywhere. She is referred to Hematology for further evaluation. Past Medical History: Diagnosis Date Anxiety Anxiety Arthritis Asthma Bipolar disorder ([facility]) Carpal tunnel syndrome Chronic kidney disease stage 3 COPD (chronic obstructive pulmonary disease) ([facility]) Depression Fibromyalgia GERD (gastroesophageal reflux disease) Heart abnormality 01/24/2020 leaky valve going for testing Hyperlipidemia Hypertension Mitral valve prolapse Myocardial infarction ([facility]) Osteoarthritis Osteoporosis Sleep apnea no cpap Spinal stenosis Vertigo Visual impairment glasses Past Surgical History: Procedure Laterality Date APPENDECTOMY ARTHROSCOPY WITH LATERAL MENISCECTOMY KNEE Right 06/06/2022 Performed by Kurt Chapman MD at [facility] BREAST FIBROADENOMA SURGERY CARPAL TUNNEL RELEASE Bilateral CATARACT EXTRACTION Bilateral CHONDROPLASTY, SYNOVECTOMY Right 06/06/2022 Performed by Kurt Chapman MD at [facility] COLONOSCOPY 2020 in CORRECTION HAMMER TOE Right EPIDURAL BLOCK INJECTION HYSTERECTOMY one ovary remains INJECTION BLOCK NERVE KNEE Left Genicular Left 06/05/2024 Performed by Sami Maharaj MD at [facility] INJECTION MEDIAL BRANCH NERVE BLOCK: bilat L45 51 Bilateral 09/25/2019 Performed by Sami Maharaj MD at [facility] INJECTION SI JOINT Bilateral SI Joint Bilateral 03/25/2020 Performed by Sami Maharaj MD at [facility] LAPAROSCOPIC CHOLECYSTECTOMY N/A 03/15/2017 Performed by Karlos Quinones DO at [facility] NEUROMA SURGERY PLANTAR FASCIA RELEASE Bilateral SINUS SURGERY x2 TARSAL TUNNEL RELEASE Bilateral TOE SURGERY toenails removed ULNAR TUNNEL RELEASE Bilateral Family History Problem Relation Age of Onset Cancer Mother ovarian Cancer Brother 55 in whole body when they found it Sudden Brother No Known Problems Son was 23 months old and hit by garbage truck Anesthesia problems Neg Hx Social History Socioeconomic History Marital status: Legally Tobacco Use Smoking status: Every Day Average packs/day: 0.8 packs/day for 35.0 years (26.3 ttl pk-yrs) Types: Cigarettes Start date: 04/15/1988 Last attempt to quit: 04/15/2023 Years since quittin.1 Smokeless tobacco: Never Vaping Use Vaping status: Former Substances: Nicotine Devices: Disposable Substance and Sexual Activity Alcohol use: Not Currently Drug use: Yes Types: Medical Marijuana Sexual activity: Not Currently Partners: Male Social Drivers of Health Financial Resource Strain: Low Risk [...] 10 min Stress: Stress Concern Present (01/24/2023) [place] [employer] - Occupational Stress Questionnaire Feeling of Stress : To some extent Social Connections: Socially Isolated (01/24/2023) Social Connection and Isolation Panel [NHANES] Frequency of Communication with Friends and Family: More than three times a week Frequency of Social Gatherings with Friends and Family: More than three times a week Attends Evangelical Services: Never Active Member of Clubs or Organizations: No Attends Club or Organization Meetings: Never Marital Status: Received from [facility] Safety & Environment Housing Instability: Low Risk (07/07/2023) Housing Instability Housing Instability: No Allergies Allergen Reactions Codeine Hives Fish Derived [...] Disturbance Ziprasidone Palpitations and Other (See Comments) Medication List Accurate as of June 11, 2024 3:56 PM. If you have any questions, ask your nurse or doctor. Medications Continued This Visit AJOVY AUTOINJECTOR 225 mg/1.5 mL Refills: 0 Dose: 225 mg Generic drug: fremanezumab-vfrm albuterol 90 mcg/actuation inhaler Refills: 0 Dose: 2 puff Commonly known as: PROVENTIL HFA;VENTOLIN HFA alcohol swabs pads, medicated Quantity: 40 each Refills: 0 For diagnoses: Type 2 diabetes mellitus with hyperglycemia, without long-term current use of insulin ([facility]) Dose: 1 Pad Signed by: Dr. Robert Giron DO 1 Pad, topical (top), Every 14 days, Clean area prior to placing sensor Commonly known as: ALCOHOL PREP PADS alendronate 70 mg tablet Refills: 0 Commonly known as: FOSAMAX ALPRAZolam 1 mg tablet Quantity: 90 tablet Refills: 1 Doctor's comments: 30 Day Supply For diagnoses: Anxiety Signed by: Dr. Robert Giron DO take one tablet by mouth three times a day as needed for anxiety Commonly known as: XANAX ammonium lactate 12 % lotion Quantity: 400 g Refills: 0 Signed by: Dr. Robert Giron DO topical, 2 times daily Commonly known as: LAC-HYDRIN ARIPiprazole 15 mg tablet Quantity: 30 tablet Refills: 5 Dose: 15 mg Signed by: Dr. Robert Giron DO 15 mg, oral, Every morning Commonly known as: ABILIFY atorvastatin 80 mg tablet Quantity: 30 tablet Refills: 11 Signed by: Dr. Robert Giron DO TAKE ONE TABLET BY MOUTH ONCE DAILY Commonly known as: LIPITOR calcium carbonate 600 mg elemental (1,500 mg) tablet Refills: 0 Commonly known as: OS-LARRY carvediloL 25 mg tablet Refills: 0 Commonly known as: COREG celecoxib 100 mg capsule Quantity: 60 capsule Refills: 2 Dose: 100 mg Signed by: Dr. Robret Giron DO 100 mg, oral, 2 times daily Commonly known as: CeleBREX cetirizine 10 mg tablet Quantity: 30 tablet Refills: 11 Dose: 10 mg Signed by: Dr. Robert Giron DO 10 mg, oral, Every morning Commonly known as: ZyrTEC dilTIAZem CD 120 mg 24 hr capsule Refills: 0 Dose: 120 mg Commonly known as: CARDIZEM CD diphenhydrAMINE 25 mg capsule Quantity: 15 capsule Refills: 0 For diagnoses: Rash in adult Dose: 25 mg Signed by: YI Barbosa 25 mg, oral, Every 6 hours PRN, MAY CAUSE DROWSINESS. HOLD hydroxyzine while taking this medication. Commonly known as: BenadryL FREESTYLE LUCERO 14 DAY READER misc Quantity: 1 each Refills: 0 Dose: 1 Unit Signed by: Dr. Robert Giron DO 1 Unit, miscellaneous, Daily Generic drug: flash glucose scanning reader FREESTYLE LUCERO 14 DAY SENSOR kit Quantity: 6 kit Refills: 1 Doctor's comments: E11.65 Dose: 1 each Signed by: YI Bridges 1 each, miscellaneous, Every 14 days Generic drug: flash glucose sensor furosemide 20 mg tablet Quantity: 30 tablet Refills: 11 Dose: 20 mg Signed by: Dr. Robert Giron DO 20 mg, oral, Every morning Commonly known as: LASIX imipramine 25 mg tablet Quantity: 30 tablet Refills: 5 For diagnoses: Fibromyalgia Dose: 25 mg Signed by: Dr. Nicole 25 mg, oral, Nightly Commonly known as: TOFRANIL ipratropium-albuteroL 0.5 mg-3 mg(2.5 mg base)/3 mL nebulizer Refills: 0 Dose: 3 mL Commonly known as: DUONEB lemborexant 5 mg tablet Quantity: 30 tablet Refills: 5 Doctor's comments: 30 Day Supply For diagnoses: Fibromyalgia Signed by: Dr. Nicole One tab at 8 PM lidocaine 5 % Quantity: 30 patch Refills: 0 Dose: 1 patch Signed by: Dr. Guerra 1 patch, transdermal, Every 24 hours, Remove & Discard patch within 12 hours or as directed by MD Commonly known as: LIDODERM loperamide 2 mg capsule Quantity: 20 capsule Refills: 1 Signed by: Dr. Robert Giron DO TAKE 2 CAPSULES BY MOUTH AFTER 1ST LOOSE STOOL AND 1 CAPSULE AFTER EACH NEXT BOWEL MOVEMENT; DO NOT EXCEED 16MG (8 CAPSULES) IN 24 HOURS Commonly known as: IMODIUM meclizine 25 mg tablet Quantity: 20 tablet Refills: 1 Dose: 25 mg Signed by: Dr. Robert Giron DO 25 mg, oral, 3 times daily PRN Commonly known as: ANTIVERT metFORMIN 500 mg tablet Quantity: 30 tablet Refills: 11 For diagnoses: Type 2 diabetes mellitus with diabetic mononeuropathy, without long-term current use of insulin ([facility]) Dose: 500 mg Signed by: Dr. Robert Giron DO 500 mg, oral, Daily with breakfast Commonly known as: GLUCOPHAGE montelukast 10 mg tablet Quantity: 30 tablet Refills: 11 Dose: 10 mg Signed by: Dr. Robert Giron DO 10 mg, oral, Nightly Commonly known as: SINGULAIR lgzdggwy-gygg-XN-calcium &mins 9 mg iron-400 mcg tablet Refills: 0 Dose: 1 tablet Commonly known as: THERAGRAN-M nebulizer accessories misc Quantity: 1 each Refills: 1 For diagnoses: Chronic obstructive pulmonary disease, unspecified COPD type ([facility]) Dose: 1 Tube Signed by: Dr. Robert Giron DO 1 Tube, inhal. via small vol.nebulizer, Every 6 months nebulizers misc Quantity: 1 each Refills: 1 For diagnoses: Chronic obstructive pulmonary disease, unspecified COPD type ([facility]) Dose: 1 Unit Signed by: Dr. Robert Giron DO 1 Unit, miscellaneous, Every 6 months NURTEC ODT 75 mg tablet,disintegrating Refills: 0 Generic drug: rimegepant nystatin cream Quantity: 15 g Refills: 0 Signed by: Dr. Robert Giron DO APPLY TO AFFECTED AREA VIA TOPICAL ROUTE TWICE A DAY Commonly known as: MYCOSTATIN omeprazole 40 mg capsule Quantity: 30 capsule Refills: 5 Signed by: Dr. Robert Giron DO TAKE ONE CAPSULE BY MOUTH ONCE DAILY BEFORE MEAL Commonly known as: PriLOSEC ondansetron ODT 4 mg disintegrating tablet Quantity: 10 tablet Refills: 1 Dose: 4 mg Signed by: Dr. Robert Giron DO 4 mg, oral, Every 8 hours PRN Commonly known as: ZOFRAN ODT orphenadrine 100 mg 12 hr tablet Quantity: 30 tablet Refills: 2 For diagnoses: Fibromyalgia Dose: 100 mg Signed by: Dr. Nicole 100 mg, oral, Daily, One tab at 8 PM Commonly known as: NORFLEX solifenacin 10 mg tablet Refills: 0 Dose: 10 mg Commonly known as: VESICARE thiamine mononitrate (vit B1) 100 mg tablet Refills: 0 Dose: 100 mg Signed by: Dr. Robert Giron DO 100 mg, oral, 2 times daily Commonly known as: VITAMIN B-1 (MONONITRATE) VITAMIN D2 1,250 mcg (50,000 unit) capsule Quantity: 4 capsule Refills: 5 Signed by: Dr. Robert Giron DO take one capsule by mouth once weekly Generic drug: ergocalciferol Review of Symptoms: Review of Systems ECO- Symptomatic; in bed <50% of the day Physical Exam: General: Well appearing, in no acute distress. Vitals: BP 135/70 Pulse 50 Temp 36.7 C (98 F) (Oral) Resp 18 Ht 162.6 cm (5' 4.02 ) Wt 75.3 kg (166 lb) SpO2 99% BMI 28.48 kg/m Body mass index is 28.48 kg/m . Eyes: No icterus, no conjuctival erythema ENT: Pharyngeal mucosa was moist without exudate and inflammation or ulcerations. Tongue was midline and appeared normal.Gums were unremarkable. Lymph nodes: No palpable adenopathy Neck: Supple. There were no masses, tenderness. Trachea was midline. Respiratory: Respirations were non-labored. Lungs were clear to auscultation. There was no dullness to percussion. Cardiac: Regular rate and rhythm, S1 and S2 sounds were normal. There were no rubs or gallops. Abdomen: Soft, non-tender, Nondistended. Bowel sounds audible in all four quadrants. There were no palpable masses. The liver and spleen were not enlarged. Extremities: There was no clubbing, Cyanosis, edema. Skin: There was no obvious rashes, bruising or ecchymosis. Back exam: No palpable tenderness was appreciated. Neurologic: There was no unilateral weakness. Mood and affect: Normal. Recent Imaging: Fluoroscopy less than one hour Result Date: 06/05/2024 Narrative: No Reading Required. This procedure does not require a formal dictation. Non-Radiologist provider performed procedures can be reviewed under Post-Op, Procedure or Progress notes. For full report details, please reach out to your physician. Effective 01/03/2021 this image will be visible to you in MyChart. Recent Labs: No results found for this or any previous visit (from the past 2 weeks). Diagnosis Problem list: Problem List Items Addressed This Visit Immune and Lymphatic Leukocytosis Impression: Chronic leukocytosis predominantly neutrophilia Long-term smoker Fibromyalgia Plan: I reviewed the patient's blood work since 2014. She has been having chronic leukocytosis with white count ranges between 13-17 K. Differential shows predominantly neutrophilia. The patient's hemoglobin and platelet counts are within range. I suspect patient has neutrophilia is reactive likely due to long-term smoking and occasional steroid exposure. I favor observation at this point. Monitor CBC yearly. My clinical suspicion for acute leukemia or myeloproliferative disorder such as CML or CMML is low. Follow-up with hematology as needed. Thank you. Nataliia Simpson MD Please note that portions of this note were generated using voice recognition [employer] dictation software. Although every effort was made to ensure the accuracy of this automated pitting machine operator, some errors in pitting machine operator may have occurred. CC: Patient Care Team: Robert Giron DO as PCP - General (Family Medicine) PCP:Robert Giron Referring MD: Robert Giron DO documented in this encounter [facility] 06-09-2024 Telephone encounter Note I did speak with patient and she understood. I did let patient know to contact pain management or her family doctor. [facility] 06-09-2024 Miscellaneous Notes I did speak with patient and she understood. I did let patient know to contact pain management or her family doctor. Needs to follow up with pain management. We will not be sending any medication. Patient called again requesting a RX be sent over for pain. Please send to drug [facility] in [place]. Patient phone number is [phone]. Patient called stating that she is in a lot of pain with her LT leg. Patient stated she has tried ice, heat and lidocaine cream. She stated she had the nerve block test done 06/05. Patient would like some suggestions. Please advise [phone]. documented in this encounter [facility] 06-09-2024 Telephone encounter Note Needs to follow up with pain management. We will not be sending any medication. [facility] Work Phone: 06-09-2024 Telephone encounter Note Patient called again requesting a RX be sent over for pain. Please send to [facility] in [place]. Patient phone number is [phone]. [facility] 06-09-2024 Telephone encounter Note Patient called stating that she is in a lot of pain with her LT leg. Patient stated she has tried ice, heat and lidocaine cream. She stated she had the nerve block test done 06/05. Patient would like some suggestions. Please advise [phone]. [facility] 06-08-2024 Miscellaneous Notes Pt calls today 06/08 [...] skin Please advise documented in this encounter [facility] 06-08-2024 Telephone encounter Note Pt calls [...] treatment due to sensitive skin Please advise [facility] 05-28-2024 Telephone encounter Note Patient calls requesting refill of Ammonium Lactate. (I don't see it in the chart for the Refill ), to [facility]. She says that her feet are really dry and also wants to let you know that her toes still hurt. [facility] 05-28-2024 Miscellaneous Notes Patient calls requesting refill of Ammonium Lactate. (I don't see it in the chart for the Refill ), to [facility]. She says that her feet are really dry and also wants to let you know that her toes still hurt. documented in this encounter [facility] 05-20-2024 History of Present illness Narrative [facility] [address] [place] [address] Patient: Keturah Herrera Sex: female : 1970 Age: 53 y.o. PCP: Robert Giron, 05/20/2024 Keturah Herrera is here for a(n) [...] Date Anxiety Anxiety Arthritis Asthma Bipolar disorder ([facility]) Carpal tunnel syndrome Chronic kidney disease stage 3 COPD (chronic obstructive pulmonary disease) ([facility]) Depression Fibromyalgia GERD (gastroesophageal reflux disease) Heart abnormality 01/24/2020 leaky valve going for testing Hyperlipidemia Hypertension Mitral valve prolapse Myocardial infarction ([facility]) Osteoarthritis Osteoporosis Sleep apnea no cpap Spinal stenosis Vertigo Visual impairment glasses Past Surgical History: Procedure Laterality Date APPENDECTOMY ARTHROSCOPY WITH LATERAL MENISCECTOMY KNEE Right 06/06/2022 Performed by Kurt Chapman MD at [facility] BREAST FIBROADENOMA SURGERY CARPAL TUNNEL RELEASE Bilateral CATARACT EXTRACTION Bilateral CHONDROPLASTY, SYNOVECTOMY Right 06/06/2022 Performed by Kurt Chapman MD at [facility] COLONOSCOPY 2019 in CORRECTION HAMMER TOE Right EPIDURAL BLOCK INJECTION HYSTERECTOMY one ovary remains INJECTION MEDIAL BRANCH NERVE BLOCK: bilat L45 51 Bilateral 09/25/2019 Performed by Sami Maharaj MD at [facility] INJECTION SI JOINT Bilateral SI Joint Bilateral 03/25/2020 Performed by Sami Maharaj MD at [facility] LAPAROSCOPIC CHOLECYSTECTOMY N/A 03/15/2017 Performed by Karlos Quinones DO at [facility] SURGERY PLANTAR FASCIA RELEASE Bilateral SINUS [...] 10 min Stress: Stress Concern Present (01/24/2023) [place] [place] [employer] - Occupational Stress Questionnaire Feeling of Stress : To some extent Social Connections: Socially Isolated (01/24/2023) Social Connection and Isolation Panel [NHANES] Frequency of Communication with Friends and Family: More than three times a week Frequency of Social Gatherings with Friends and Family: More than three times a week Attends Evangelical Services: Never Active Member of Clubs or Organizations: No Attends Club or Organization Meetings: Never Marital Status: Interpersonal Safety: Unknown (10/10/2023) Received from [facility] [place] Safety & Environment Fear of Current or [...] PA-C 05/20/24 1159 documented in this encounter [facility] 05-20-2024 Instructions Poly Kaminski RN - [...] a safety precaution, you must have a delivery driver/customer service after a lumbar nerve root injection, even [...] back to normal. documented in this encounter [facility] 05-18-2024 Miscellaneous Notes [facility] pharmacy called to verify Dr. Nicole wanted the quantity of orphenadrine to be 30 vs to 60 since patient will take BID. One tab at bed time Pharmacy notified documented in this encounter [facility] 05-18-2024 Telephone encounter Note [facility] pharmacy called to verify Dr. Nicole wanted the quantity of orphenadrine to be 30 vs to 60 since patient will take BID. [facility] 05-18-2024 Telephone encounter Note One tab at bed time [facility] 05-18-2024 Telephone encounter Note Pharmacy notified [facility] 03-05-2024 Note Consultation Note Patient is [...] with any questions or concerns that arise. [facility] Comment on above: Result Comment: Elec [...] Date:07/30/2024 01:45:00 PM Scheduled Provider:Kehinde Davalos MD [facility] Type:Cardiology Follow Up (FT) Appointment Date:01/05/2025 01:00:00 PM Scheduled Provider:POLLY MARIANO PA-C Location:[facility] Appointment Type:URO Office Visit Future Scheduled Tests Radiology* Echo Transthoracic Complete 05/20/23 [facility]05-29-2024 Evaluation + Plan noteExtracted from: Title:Pain Managment [...] Date:01/30/2024 02:15:00 PM Scheduled Provider:En Carmen PA-C [facility] Type:Cardiology Follow Up (FT) Appointment Date:03/05/2024 03:30:00 PM Scheduled Provider:Andrew Eid DO Location:[facility] Appointment Type:Pain Management - Follow Up (FT) Appointment Date:01/05/2025 01:00:00 PM Scheduled Provider:POLLY MARIANO PA-C Location:[facility] Appointment Type:URO Office Visit Future Scheduled Tests Laboratory* Pancreatic Elastase, Fecal 01/29/23 * Fecal WBC Lactoferrin 01/29/23 * Giardia lamblia, Direct Detection EIA 01/29/23 * O & P Exam, Routine 01/29/23 * Clostridium Difficile PCR 01/29/23 * Enteric Panel by PCR 01/29/23 Radiology* Echo Transthoracic Complete 05/20/23 [facility]05-15-2024 Evaluation + Plan noteExtracted from: Title:Pain Managment [...] Date:02/26/2024 11:15:00 AM Scheduled Provider:Andrew Eid DO [facility] Appointment Type:Pain Management - Follow Up (FT) Appointment Date:01/05/2025 01:00:00 PM Scheduled Provider:POLLY MARIANO PA-C Location:[facility] Appointment Type:URO Office Visit Future Scheduled Tests Laboratory* Pancreatic Elastase, Fecal 01/29/23 * Fecal WBC Lactoferrin 01/29/23 * Giardia lamblia, Direct Detection EIA 01/29/23 * O & P Exam, Routine 01/29/23 * Clostridium Difficile PCR 01/29/23 * Enteric Panel by PCR 01/29/23 Radiology* Echo Transthoracic Complete 05/20/23 [facility]05-14-2024 Hospital Discharge instructions Patient Education 12/31/2023 12:57:29 [...] nerve stimulation). ?For women, using a medical records assistant to prevent urine leaks. This is a [...] right after experiencing incontinence. General instructions Take loaj-icf-uwufkps and prescription medicines only as told by [...] important. Where to find more information National [place] of Diabetes and Digestive and Kidney Diseases: www.niddk.nih.gov [employer] [employer]: www.urologyhealth.org Contact a health care [...] provider. Document Revised: 03/10/2021 Document Reviewed: 03/10/2021 [employer] Patient Education 2022 RxEye. Follow Up Care 09/17/2023 08:57:54 With:POLLY MARIANO PA-C, URL Address: [address] [facility] [place] [address] When: Unknown [facility] 04-24-2024 Note [id number] NoteDiagnosis: M54.16, lumbar radiculopathy Procedure: [...] the epidural space was confirmed using the gzqn-[id number]-efahplxwqz technique and 2 cc of air. Injection [...] procedure, and agrees to continue currently prescribed/recommended therapies.[facility] Comment on above:Result Comment: Electronically Signed By: Andrew Eid DO\.br\Date and Time Signed: 12/11/23 09:29 [id number] Evaluation + Plan note Extracted from: Title:L4/5 [...] the epidural space was confirmed using the rzia-eb-ywyjknmliy technique and 2 cc of air. Injection [...] Date:12/31/2023 01:00:00 PM Scheduled Provider:POLLY MARIANO PA-C Location:[facility] Appointment Type:URO Office Visit Appointment Date:01/01/2024 11:00:00 AM Scheduled Provider:Cady Alva PA-C Location:[facility] Appointment Type:Pain Management - Follow Up (FT) Future Scheduled Tests Laboratory* Pancreatic Elastase, Fecal 01/29/23 * Fecal WBC Lactoferrin 01/29/23 * Giardia lamblia, Direct Detection EIA 01/29/23 * O & P Exam, Routine 01/29/23 * Clostridium Difficile PCR 01/29/23 * Enteric Panel by PCR 01/29/23 * CBC w/ Auto Diff 12/25/22 * Comprehensive Metabolic Panel 12/25/22 Radiology* Echo Transthoracic Complete 05/20/23 [facility]03-20-2024 Evaluation + Plan noteExtracted from: Title:Pain Managment [...] Date:12/31/2023 01:00:00 PM Scheduled Provider:POLLY MARIANO PA-C Location:[facility] Appointment Type:URO Office Visit Future Scheduled Tests Laboratory* Pancreatic Elastase, Fecal 01/29/23 * Fecal WBC Lactoferrin 01/29/23 * Giardia lamblia, Direct Detection EIA 01/29/23 * O & P Exam, Routine 01/29/23 * Clostridium Difficile PCR 01/29/23 * Enteric Panel by PCR 01/29/23 * CBC w/ Auto Diff 12/25/22 * Comprehensive Metabolic Panel 12/25/22 Radiology* Echo Transthoracic Complete 05/20/23 [facility]03-15-2024 History of Present illness Narrative* Fiona Rockwell APRN-DELORES - 11/01/2023 12:30 PM EDT The OARRS/MAPPS database was reviewed today and found to be appropriate. No indication of medication diversion, or non compliance. Fiona Rockwell APRN-DELORES 11/01/23 1231 documented in this encounterMer[facility]02-15-[facility]24 History of Present illness Narrative* Robert [...] last A1c was 6.5%. She saw her interior design coordinator who medically cleared her. She had a [...] ear normal. Nose: Nose normal. Mouth/Throat: Lips: [place]. Mouth: Mucous membranes are moist. Pharynx: Oropharynx [...] Hallux valgus of right foot Follow-up with casino surveillance officer for surgery. Essential hypertension Blood pressure at goal. Take medications with a sip of water in the morning. Diabetic peripheral neuropathy ([facility]) At goal. documented in this encounterMer[facility]iff[facility]02-09-2024 Miscellaneous Notes* Telephone Encounter - Anjelica Rutledge - 09/27/2023 8:08 AM EST Patient left message requesting if she can get refill of Tramadol. Please advise. [phone] documented in this encounterSt. Lukes Des Pe[facility] [id number] Telephone encounter Note* Telephone Encounter - Anjelica Rutledge - 09/27/2023 8:08 AM EST Patient left message requesting if she can get refill of Tramadol. Please advise. [phone] [facility] [id number] History of Present illness Narrative* Martin Arango [...] Behavior, Mental Status Change, other, Vomiting hallucinate [place] Saline Nasal Gel [Aloe-Sodium Chloride] Facial numbness/tongue [...] History: Past Medical History: Diagnosis Date Asthma ([facility]) Bipolar disorder ([facility]) Bunion COPD (chronic obstructive pulmonary disease) ([facility]) Depression ([facility]) Diabetes ([facility]) Difficulty walking Fallen arches Fibromyalgia Hammer toe Kidney stones Migraine ([facility]) Mitral valve prolapse Downey's neuroma Onychomycosis Osteoarthritis [...] time., Disp: , Rfl: Continuous Blood Gluc Diesel Engine Assembler (Dexcom G6 residence counselor) device, 1 UNIT YEARLY, Disp: , Rfl: Continuous Blood Gluc Sensor (Dexcom G6 Sensor) [facility], USE 1 UNIT DIRECTED AND CHANGE EVERY 10 DAYS, Disp: , Rfl: ergocalciferol (Vitamin D2) 1.25 MG (02968 UT) capsule, Take 1 capsule by mouth [...] oral route., Disp: , Rfl: nystatin (Mycostatin) [id number] UNIT/ML suspension, TAKE 5ML FOUR TIMES A [...] breath with positive history of tachycardia seeing interior design coordinator for this Pulmonary: Positive history of shortness [...] polyneuropathy, with long-term current use of insulin ([facility]) 4. Contracture of right ankle 5. Bone [...] risks, alternatives, benefits, post op complications and intermodal truck driver expectations were discussed including but not limited to: infection,bone infection,wound dehiscence hardware failure and irritation,wound dehiscence,delay union/mal union/non union of bone. RSDS,neuroma,duty limitations,DVT/PE, [place],nerve damage, scar, loss of sensation, swelling. Pt [...] date and current (date) documented in this encounterSt. Lukes Des Peres [id number] Hospital Discharge instructions Patient Education 09/17/2023 08:52:34 [...] Follow these instructions at home: Medicines Take jxfm-lro-xqqyncq and prescription medicines only as told by [...] or the blood stops without treatment. Take pkpc-crp-ppjtdtx and prescription medicines only as told by your health care provider. Drink enough fluid to keep your urine pale yellow. This information is not intended to replace advice given to you by your health care provider. Make sure you discuss any questions you have with your health care provider. Document Revised: 04/05/2021 Document Reviewed: 04/05/2021 Cord Project Patient Education 2022 RxEye. Follow Up Care 06/13/2023 09:13:04 With:YUDY NORRIS, POLLY Kaminski, URL Address: [address] [place] [address] [phone] When: Unknown Comments:3 mos (restart med) [facility] 01-09-2024 Evaluation note* Encounter Date Diagnosis Assessment Notes Treatment Notes Treatment Clinical Notes Aug, Chronic obstructive pulmonary disease, unspecified (ICD-10 - J44.9) Aug, Tobacco abuse (ICD-1 0 - Z72.0) Stop smoking. Chest CT in 03/2023 showed emphysema, no nodules. Next LDCT screening will be scheduled for 2023. Aug, Diastolic dysfunctio n (ICD-10 - I51.9) Aug, Nicotine dependence, cigarettes, uncomplicated (ICD-10 - F17.210) [employer] Other 12-07-2023 NotePROCEDURE: CARDIAC EVENT MONITOR 14 [...] BY: Yandel Jett M.D. lr Dictated: 07/23/2023 [id number] Transcribed: 07/23/2023 cc:DELORES [facility]ht[facility] County Medical CenterComment on above:Result Comment: Electronically Signed By: Yandel Jett MD\.br\Date and Time Signed: 07/25/23 08:27 [id number] Evaluation note* Encounter Date Diagnosis Assessment Notes [...] Nicotine dependence, cigarettes, uncomplicated (ICD-10 - F17.210) [employer] Other 06-01-2023 Hospital Discharge instructions Patient Education 01/17/2023 09:45:42 Colonoscopy, Care After Surgery Salam (CUSTOM) Colonoscopy Care After Surgery Please read the instructions outlined below and refer to this sheet in the next few weeks. These discharge instructions provide you with general information on caring for [facility] Your doctor may also give you [...] worse throughout the day. 01/17/2023 09:45:38 Hemorrhoids, Kvbk-rc-Hgwq Hemorrhoids Hemorrhoids are swollen veins that may [...] 3 times a day. General instructions Take tnjs-nbd-ebysqva and prescription medicines only as told by [...] provider. Document Revised: 02/14/2022 Document Reviewed: 02/14/2022 Cord Project Patient Education 2022 RxEye. 01/17/2023 09:45:31 Colon Polyps Colon Polyps Colon [...] hard liquor (44 mL). General instructions Take phum-vih-owwrgol and prescription medicines only as told by [...] provider. Document Revised: 11/23/2020 Document Reviewed: 11/23/2020 Cord Project Patient Education 2022 RxEye. Follow Up Care 09/14/2022 14:04:03 With:BELA WALSH, DHAVAL Poole, [facility] Address: [address] [place] [address]. [address] [place] [address] When: Unknown Comments:Office will call to schedule follow up appointment [facility]04-05-2023 Evaluation + Plan noteExtracted from: Title:Anesthesia Pre-Op Note - LILLY Author:Bordy Raza DO Date:11/21/22 Plan [place] Society of Anesthesiologists#(ASA) physical status classification: Class III. Anesthetic Preoperative Plan Anesthesia: General. . Anesthetic plan, risks, benefits, and alternatives discussed with the patient and/or family. Risks discussed: nausea, vomiting, headache, sore throat, aspiration, airway. Patient verbalized understanding. Informed consent was given. Consent was signed by the patient. Future Appointments Appointment Date:12/10/2022 02:40:00 PM Scheduled Provider:Inessa Grajeda CNP [facility] Appointment Type:BADH Follow Up Appointment Date:01/17/2023 09:50:00 AM Scheduled Provider: Location:[facility] Appointment Type:Surgery FT Appointment Date:01/30/2023 01:20:00 PM Scheduled Provider:POLLY MARIANO PA-C Location:[facility] Appointment Type:URO Office Visit Future Scheduled Tests Laboratory* Clostridium difficile by PCR 05/09/22 * CBC w/ Auto Diff 05/09/22 * Comprehensive Metabolic Panel 05/09/22 [facility]04-05-2023 Hospital Discharge instructions Patient Education 11/21/2022 11:26:16 Foot Cryocuff Patient Instructions - FT (CUSTOM) 11/21/2022 11:26:16 Post Op Patient Instructions - FT (CUSTOM) 11/21/2022 08:48:42 Conchita - Post Operative Instructions (Revised 07/29/19) (Custom) ([id number]) (Custom) [place], [place] Martin Arango, SALLIE, FACFAS POST OPERATIVE [...] feel free to call the doctor at: [phone] or [phone] Arango paged. Patient signatureDate Dr.Nicholas Arango, DPM, FACFAS Date Revised: 09-26 [facility]03-13-2023 Hospital Discharge instructions Patient Education 10/29/2022 14:43:33 [...] water added (diluted fruit juice). Eat bland, kzus-lc-xugfwn foods in small amounts as you are able. These foods include bananas, applesauce, rice, lean meats, toast, and crackers. Avoid drinking fluids that contain a lot of sugar or caffeine, such as energy drinks, sports drinks, and soda. Avoid alcohol. Avoid spicy or fatty foods. General instructions Take cjjw-wee-yyphlah and prescription medicines only as told by your health care provider. Rest at home while you recover. Drink enough fluid to keep your urine pale yellow. Breathe slowly and deeply when you feel nauseous. Avoid smelling things that have strong odors. Wash your hands often using soap and water. If soap and water are not available, use hand dump truck driver off highway. Make sure that all people in your [...] recommendations for eating and drinking and take vsdk-amy-pgybbic and prescription medicinesonly as told by your [...] 09/12/2005 Document Revised: 01/13/2019 Document Reviewed: 01/13/2019 Cord Project Patient Education 2020 [employer] Follow Up Care 10/02/2022 13:26:11 With:Inessa Grajeda CNP Address: When:1 to 2 weeks Comments:Following colonoscopy. [facility] 03-04-2023 Hospital Discharge [...] Treatment for this condition includes: Antibiotic medicine. Zevy-nxt-bnvpgla medicines to treat discomfort. Drinking enough water [...] Follow these instructions at home: Medicines Take lprm-zjv-vdlajrj and prescription medicines only as told by [...] 05/15/2006 Document Revised: 07/23/2019 Document Reviewed: 02/12/2019 Cord Project Patient Education 2020 RxEye. 10/20/2022 12:23:03 Antibiotic Medicine, Adult Antibiotic Medicine, [...] 04/17/2005 Document Revised: 02/03/2019 Document Reviewed: 08/06/2017 Cord Project Patient Education 2020 RxEye. Follow Up Care 10/20/2022 10:33:51 With:ROBERT GIRON Address: [address] [place] [address] Business (1) When:10/23/2022 12:22:53 Comments:Call [...] you develop any new or worsening symptoms. [facility]03-04-2023 Evaluation + Plan noteExtracted from: Title:ED Note Author:Santos Landry DO Date: Acute UTI (N39.0: Urinary tr act infection, site not specified) Orders: azithromycin, = 1 packet(s), Oral, As Directed, as directed on package labeling, X 5 day(s), # 6 tab(s), Refills(s) 0, Pharmacy: [id number], 163, cm, 10/20/22 10:48:00 EST, Height/Length [...] Appointment Date:10/23/2022 09:00:00 AM Scheduled Provider: [facility] Type:US Abdominal/Pelvis (FT) Appointment Date:10/29/2022 02:40:00 PM Scheduled Provider:Inessa Grajeda CNP [place] Appointment Type:BADH Follow Up Appointment Date:10/30/2022 03:00:00 PM Scheduled Provider:Elliott Solis MD [facility] Type:Cardiology Follow Up (FT) Appointment Date:11/07/2022 02:40:00 PM Scheduled Provider: Location:[facility] Appointment Type:Surgery FT Appointment Date:01/30/2023 01:20:00 PM Scheduled Provider:POLLY MARIANO PA-C Location:[facility] Appointment Type:URO Office Visit Diagnostic Tests Pending * Urine Culture 10/20/22 Future Scheduled Tests Laboratory* Clostridium difficile by PCR 05/09/22 * CBC w/ Auto Diff 05/09/22 * Comprehensive Metabolic Panel 05/09/22 Radiology* US Abdomen Complete 10/23/22 [facility]02-24-2023 Hospital Discharge instructions Patient Education [...] take to decrease my back pain? Take ltdj-yhv-layazfb or prescription medicines only as told by [...] and in- person support groups through: The [place] [employer] Association: https://theacpa.org/Support-Groups The [place].S. Pain [...] 08/19/2016 Document Revised: 07/18/2018 Document Reviewed: 04/13/2017 Cord Project Patient Education 2020 [employer] Follow Up Care 10/12/2022 12:55:29 With:ROBERT GIRON Address: [address] [place] [address] Business (1) When:10/15/2022 14:38:47 Comments:Call [...] you develop any new or worsening symptoms. [facility]02-24-2023 Evaluation + Plan noteExtracted from: [...] Appointment Date:10/23/2022 09:00:00 AM Scheduled Provider: [facility] App[facility] Type:US Abdominal/Pelvis () Appointment Date:10/29/2022 02:40:00 PM Scheduled Provider:Inessa Grajeda CNP Location:[facility] Appointment Type:BADH Follow Up Appointment Date:10/30/2022 03:00:00 PM Scheduled Provider:Elliott Solis MD Location:FT.Cardiology Clinic Appointment Type:Cardiology Follow Up (FT) Appointment Date:11/07/2022 02:40:00 PM Scheduled Provider: Location:[facility] Appointment Type:Surgery FT Appointment Date:01/30/2023 01:20:00 PM Scheduled Provider:POLLY MARIANO PA-C [place] Appointment Type:URO Office Visit Future Scheduled Tests Laboratory* Fecal WBC Lactoferrin 05/09/22 * Giardia lamblia, Direct Detection EIA 05/09/22 * O & P Exam, Routine 05/09/22 * Clostridium difficile by PCR 05/09/22 * Enteric Panel by PCR 05/09/22 * CBC w/ Auto Diff 05/09/22 * Comprehensive Metabolic Panel 05/09/22 Radiology* US Abdomen Complete 10/23/22 [facility]02-14-2023 Hospital Discharge instructions Patient Education [...] water added (diluted fruit juice). Eat bland, glmx-tz-ssjdui foods in small amounts as you are able. These foods include bananas, applesauce, rice, lean meats, toast, and crackers. Avoid fluids that contain a lot of sugar or caffeine, such as energy drinks, sports drinks, and soda. Avoid alcohol. Avoid spicy or fatty foods. General instructions Take zfch-pqx-eybjzci and prescription medicines only as told by your health care provider. Drink enough fluid to keep your urine pale yellow. Wash your hands often using soap and water. If soap and water are not available, use hand dump truck driver off highway. Make sure that all people in your [...] eating and drinking to prevent dehydration. Take poql-akn-zqwrykv and prescription medicines only as told by [...] 08/05/2006 Document Revised: 11/27/2019 Document Reviewed: 01/13/2019 ElseHOSTEX Patient Education 2019 RxEye. Follow Up Care 09/21/2022 11:43:03 With:Inessa Grajeda CNP Address: When:1 month [facility] 01-19-2023 Evaluation + Plan noteExtracted from: Title:ANES Post-operative Note Author:Kurt Oseguera MD Date:09/06/22 Plan Transfer/Discharge: Transfer/Discharge Discharge when meets criteria ( To home ). Extracted from: Title:ANES Pre-operative Note Author:Lillie Oseguera MD Date:09/06/22 Plan [place] Society of Anesthesiologists (ASA) physical status classification: Class III. Anesthetic Preoperative Plan: Anesthesia General, and Monitored anethesia care. Future Appointments Appointment Date:10/30/2022 03:00:00 PM Scheduled Provider:Elliott Solis MD Location:.[facility] Appointment Type:Cardiology Follow Up (FT) Appointment Date:01/30/2023 01:20:00 PM Scheduled Provider:POLLY MARIANO PA-C Location:[facility] Appointment Type:URO Office Visit Future Scheduled Tests Laboratory* Fecal WBC Lactoferrin 05/09/22 * Giardia lamblia, Direct Detection EIA 05/09/22 * O & P Exam, Routine 05/09/22 * Clostridium difficile by PCR 05/09/22 * Enteric Panel by PCR 05/09/22 * CBC w/ Auto Diff 05/09/22 * Comprehensive Metabolic Panel 05/09/22 [facility]01-19-2023 Hospital Discharge instructions Patient Education 09/06/2022 09:52:38 Colonoscopy, Care After Surgery Salam (CUSTOM) Colonoscopy Care After Surgery Please read the instructions outlined below and refer to this sheet in the next few weeks. These discharge instructions provide you with general information on caring for [facility] Your doctor may also give you [...] what activities are safe for you. Take njhw-ywi-rzmczad and prescription medicines only as told by [...] 02/03/2013 Document Revised: 01/27/2019 Document Reviewed: 01/05/2019 Cord Project Patient Education 2019 RxEye. Follow Up Care 06/26/2022 12:25:13 With:Zulema CRAMER Address: [facility] [address] [place] [address] Business (1) When: Unknown Comments:Office to call for follow-up appointment [facility]11-17-2022 Evaluation note* Encounter Date Diagnosis Assessment Notes Treatment Notes Treatment Clinical Notes Jun, Chronic obstructive pulmonary disease, unspecified (ICD-10 - J44.9) Jun, Tobacco abuse (ICD-10 - Z72.0) Cut back on smoking to goal of stopping, Jun, Diastolic dysfunction (ICD-10 - I51.9) [employer] Other 04-25-2022 Hospital Discharge instructions Patient Education [...] fried and sweet foods. General instructions Take slqs-psf-wdlavwa and prescription medicines only as told by [...] 06/01/2010 Document Revised: 11/26/2019 Document Reviewed: 08/21/2018 Cord Project Patient Education 2020 RxEye. Follow Up Care 09/04/2021 10:41:00 With:LILI WALSH, Donaldo Moreira, URL Address: [facility] [address] , [place] [phone] When:04/12/2022 [facility] 11-09-2021 NoteHNO ID: [id number] Author: Ye Rodriguez PA-C Service: ? Author Type: Physician Hvac Design Engineer Type: Progress Notes Filed: 06/27/2021 4:56 PM Note Text: Comprehensive [facility] [place] [facility] NOTE CC: Keturah Herrera is a [...] bipolar - COPD (chronic obstructive pulmonary disease) ([facility]) - Depression - Ana Laura-Danlos [...] content not included)...[facility]09-01-2021 NoteHNO ID: [id number] Author: RT James(R) Service: ? Author Type: Offset Printer Type: Progress Notes Filed: 04/19/2021 1:56 PM [...] James(R) April 19, 2021 1:[address] [facility]09-01-2021 NoteHNO ID: [id number] Author: Randi Farrell, DO Service: ? Author [...] month if [facility]-2021 NoteHNO ID: [id number] Author: RT James(R) Service: ? Author Type: Offset Printer Type: Progress Notes Filed: 04/19/2021 1:09 PM [...] James(R) April 19, 2021 1:[address] [facility] note Future Appointments Appointment Date:12/11/2021 11:45:00 AM Scheduled Provider:Donaldo PEARSON MD Location:[facility] Appointment Type:URO Office Visit Appointment Date:01/11/2022 02:15:00 PM Scheduled Provider:Zulema CRAMER MD Location[facility] Type:[facility] note Future Appointments Appointment Date:01/11/2022 02:15:00 PM Scheduled Provider:Zulema CRAMER MD Location:[facility] Appointment Type:[facility] Follow Up Appointment Date:04/09/2022 01:45:00 PM Scheduled Provider:Donaldo PEARSON MD Location:[facility] Appointment Type:URO Office Visit [facility] evaluation + Plan note Future Appointments Appointment Date:02/01/2022 08:15:00 AM Scheduled Provider: Location:[facility] Appointment Type:Surgery PAT COVID Testing Appointment Date:02/01/2022 09:00:00 AM Scheduled Provider: Location:[facility] Appointment Type:Surgery FT Appointment Date:02/08/2022 09:40:00 AM Scheduled Provider: Location:[facility] Appointment Type:Surgery FT Appointment Date:04/09/2022 01:45:00 PM Scheduled Provider:Donaldo PEARSON MD [facility] Office Visit [facility] Evaluation + Plan note Future Appointments Appointment Date:02/01/2022 08:15:00 AM Scheduled Provider: Location:[facility] Appointment Type:Surgery PAT COVID Testing Appointment Date:02/01/2022 09:00:00 AM Scheduled Provider: Location:[facility] Appointment Type:Surgery FT Appointment Date:02/08/2022 09:40:00 AM Scheduled Provider: Location:[facility] Appointment Type:Surgery FT Appointment Date:03/06/2022 10:30:00 AM Scheduled Provider:Cady CALIX CNP Location:[facility] Clinic Appointment Type:Cardiology Follow Up (FT) Appointment Date:04/09/2022 01:45:00 PM Scheduled Provider:Donaldo PEARSON MD [facility]O [facility] + Plan note Future Appointments Appointment Date:02/08/2022 09:30:00 AM Scheduled Provider: Location:[facility] Appointment Type:Surgery FT Appointment Date:03/06/2022 10:30:00 AM Scheduled Provider:Cady CALIX CNP Location:[facility] Appointment Type:Cardiology Follow Up (FT) Appointment Date:04/09/2022 01:45:00 PM Scheduled Provider:Donaldo PEARSON MD Location:[facility] Appointment Type:URO [facility] + Plan note Future Appointments Appointment Date:03/06/2022 10:30:00 AM Scheduled Provider:Cady CALIX CNP Location:[facility] Appointment Type:Cardiology Follow Up (FT) Appointment Date:03/22/2022 08:15:00 AM Scheduled Provider: Location:[facility] Appointment Type:Surgery PAT COVID Testing Appointment Date:03/29/2022 08:40:00 AM Scheduled Provider: Location:[facility] Appointment Type:Surgery FT Appointment Date:04/09/2022 01:45:00 PM Scheduled Provider:Donaldo PEARSON MD Location:[facility] Appointment Type:URO Office Visit [facility] + Plan note Future Appointments Appointment Date:03/20/2022 01:00:00 PM Scheduled Provider: [facility] Type:Cardiology Nurse Visit (FT) Appointment Date:03/22/2022 08:15:00 AM Scheduled Provider: Location:[facility] Appointment Type:Surgery PAT COVID Testing Appointment Date:03/29/2022 08:40:00 AM Scheduled Provider: Location:[facility] Appointment Type:Surgery FT Appointment Date:04/09/2022 01:45:00 PM Scheduled Provider:Donaldo PEARSON MD Location:[facility] Appointment Type:URO Office Visit Appointment Date:09/06/2022 01:15:00 PM Scheduled Provider:Elliott Solis MD [facility] Type:Cardiology Follow Up (FT) [facility] + Plan note Future Appointments Appointment Date:03/22/2022 08:15:00 AM Scheduled Provider: Location:[facility] Appointment Type:Surgery PAT COVID Testing Appointment Date:03/29/2022 08:40:00 AM Scheduled Provider: Location:[facility] Appointment Type:Surgery FT Appointment Date:04/09/2022 01:45:00 PM Scheduled Provider:Donaldo PEARSON MD [facility] Type:URO Office Visit Appointment Date:09/06/2022 01:15:00 PM Scheduled Provider:Elilott Solis MD [facility] Type:Cardiology Follow Up (FT) [facility] + Plan note Future Appointments Appointment Date:03/29/2022 08:40:00 AM Scheduled Provider: Location:[facility] Appointment Type:Surgery FT Appointment Date:04/09/2022 01:45:00 PM Scheduled Provider:Donaldo PEARSON MD Location:[facility] Appointment Type:URO Office Visit Appointment Date:09/06/2022 01:15:00 PM Scheduled Provider:Elliott Solis MD [facility] Type[facility] ([facility]) [facility] Future Appointments Appointment Date:05/09/2022 01:40:00 PM Scheduled Provider:Inessa Grajeda CNP [place] Appointment Type:BADH Follow Up Appointment Date:05/15/2022 01:30:00 PM Scheduled Provider:Cady CALIX CNP [facility] Type:Cardiology ED Follow Up (FT) Appointment Date:05/16/2022 01:20:00 PM Scheduled Provider:POLLY MARIANO PA-C Location:[facility] Appointment Type:URO Office Visit Appointment Date:09/06/2022 01:15:00 PM Scheduled Provider:Elliott Solis MD [facility] Type:Cardiology Follow Up (FT) [facility] Future Appointments Appointment Date:06/11/2022 11:00:00 AM Scheduled Provider: Location:[facility] Appointment Type:Surgery PAT COVID Testing Appointment Date:06/18/2022 09:45:00 AM Scheduled Provider: Location:[facility] Appointment Type:Surgery FT Appointment Date:09/06/2022 01:15:00 PM Scheduled Provider:Elliott Solis MD [facility] Type:Cardiology Follow Up (FT) Appointment Date:10/30/2022 03:00:00 PM Scheduled Provider:Elliott Solis MD [facility] Type:Cardiology Follow Up (FT) Future Scheduled Tests Laboratory* Fecal WBC Lactoferrin 05/09/22 * Giardia lamblia, Direct Detection EIA 05/09/22 * O & P Exam, Routine 05/09/22 * Clostridium difficile by PCR 05/09/22 * Enteric Panel by PCR 05/09/22 * CBC w/ Auto Diff 05/09/22 * Comprehensive Metabolic Panel 05/09/22 [facility] Future Appointments Appointment Date:09/06/2022 01:15:00 PM Scheduled Provider:Elliott Solis MD [facility] Type:Cardiology Follow Up (FT) Appointment Date:10/30/2022 03:00:00 PM Scheduled Provider:Elliott Solis MD [facility] Type:Cardiology Follow Up (FT) Appointment Date:01/30/2023 01:20:00 PM Scheduled Provider:POLLY MARIANO PA-C Location:[facility] Appointment Type:URO Office Visit Future Scheduled Tests Laboratory* Fecal WBC Lactoferrin 05/09/22 * Giardia lamblia, Direct Detection EIA 05/09/22 * O & P Exam, Routine 05/09/22 * Clostridium difficile by PCR 05/09/22 * Enteric Panel by PCR 05/09/22 * CBC w/ Auto Diff 05/09/22 * Comprehensive Metabolic Panel 05/09/22 [facility] Future Appointments Appointment Date:10/30/2022 03:00:00 PM Scheduled Provider:Elliott Solis MD [facility] Type:Cardiology Follow Up (FT) Appointment Date:01/30/2023 01:20:00 PM Scheduled Provider:POLLY MARIANO PA-C Location:[facility] Appointment Type:URO Office Visit Future Scheduled Tests Laboratory* Fecal WBC Lactoferrin 05/09/22 * Giardia lamblia, Direct Detection EIA 05/09/22 * O & P Exam, Routine 05/09/22 * Clostridium difficile by PCR 05/09/22 * Enteric Panel by PCR 05/09/22 * CBC w/ Auto Diff 05/09/22 * Comprehensive Metabolic Panel 05/09/22 [facility] Future Appointments Appointment Date:10/23/2022 09:00:00 AM Scheduled Provider: [facility] Appoint[facility] Type:US Abdominal/Pelvis (FT) Appointment Date:10/29/2022 02:40:00 PM Scheduled Provider:Inessa Grajeda CNP [facility] Appointment Type:BADH Follow Up Appointment Date:10/30/2022 03:00:00 PM Scheduled Provider:Elliott Solis MD [facility] Type:Cardiology Follow Up (FT) Appointment Date:10/31/2022 03:15:00 PM Scheduled Provider: Location:[facility] Appointment Type:Surgery PAT COVID Testing Appointment Date:11/07/2022 02:40:00 PM Scheduled Provider: Location:[facility] Appointment Type:Surgery FT Appointment Date:01/30/2023 01:20:00 PM Scheduled Provider:POLLY MARIANO PA-C Location:[facility] Appointment Type:URO Office Visit Future Scheduled Tests Laboratory* Fecal WBC Lactoferrin 05/09/22 * Giardia lamblia, Direct Detection EIA 05/09/22 * O & P Exam, Routine 05/09/22 * Clostridium difficile by PCR 05/09/22 * Enteric Panel by PCR 05/09/22 * CBC w/ Auto Diff 05/09/22 * Comprehensive Metabolic Panel 05/09/22 Radiology* US Abdomen Complete 10/23/22 [facility] evaluation + Plan note Future Appointments Appointment Date:10/30/2022 08:00:00 AM Scheduled Provider: [facility] Appointment Type:US Abdominal/Pelvis (FT) Appointment Date:10/30/2022 03:00:00 PM Scheduled Provider:Elliott Solis MD [facility] Type:Cardiology Follow Up (FT) Appointment Date:11/07/2022 02:40:00 PM Scheduled Provider: Location:[facility] Appointment Type:Surgery FT Appointment Date:12/10/2022 02:40:00 PM Scheduled Provider:Inessa Grajeda CNP [place] Appointment Type:BAD Follow Up Appointment Date:01/30/2023 01:20:00 PM Scheduled Provider:POLLY MARIANO PA-C Location:[facility] Appointment Type:URO Office Visit Future Scheduled Tests Laboratory* Clostridium difficile by PCR 05/09/22 * CBC w/ Auto Diff 05/09/22 * Comprehensive Metabolic Panel 05/09/22 Radiology* US Abdomen Complete 10/30/22 [facility] evaluation + Plan note Future Appointments Appointment Date:11/07/2022 02:40:00 PM Scheduled Provider: Location:[facility] Appointment Type:Surgery FT Appointment Date:11/09/2022 10:00:00 AM Scheduled Provider: [facility] Appointment Type:US Abdominal/Pelvis (FT) Appointment Date:12/10/2022 02:40:00 PM Scheduled Provider:Inessa Grajeda CNP [place] Appointment Type:BADH Follow Up Appointment Date:01/30/2023 01:20:00 PM Scheduled Provider:POLLY MARIANO PA-C Location:[facility] Appointment Type:URO Office Visit Future Scheduled Tests Laboratory* Clostridium difficile by PCR 05/09/22 * CBC w/ Auto Diff 05/09/22 * Comprehensive Metabolic Panel 05/09/22 Radiology* US Abdomen Complete 11/09/22 [facility] Future Appointments Appointment Date:12/10/2022 02:40:00 PM Scheduled Provider:Inessa Grajeda CNP Location:[facility] Appointment Type:BAD Follow Up Appointment Date:01/17/2023 09:50:00 AM Scheduled Provider: Location:[facility] Appointment Type:Surgery FT Appointment Date:01/30/2023 01:20:00 PM Scheduled Provider:POLLY MARIANO PA-C Location:[facility] Appointment Type:URO Office Visit Future Scheduled Tests Laboratory* Clostridium difficile by PCR 05/09/22 * CBC w/ Auto Diff 05/09/22 * Comprehensive Metabolic Panel 05/09/22 [facility] Future Appointments Appointment Date:01/30/2023 01:20:00 PM Scheduled Provider:POLLY MARIANO PA-C Location:[facility] Appointment Type:URO Office Visit Appointment Date:02/06/2023 02:00:00 PM Scheduled Provider:Inessa Grajeda CNP [place] Appointment Type:BAD Follow Up Future Scheduled Tests Laboratory* Clostridium difficile by PCR 05/09/22 * CBC w/ Auto Diff 05/09/22 * CBC w/ Auto Diff 12/25/22 * Comprehensive Metabolic Panel 05/09/22 * Comprehensive Metabolic Panel 12/25/22 [facility] Future Appointments Appointment Date:06/14/2023 11:00:00 AM Scheduled Provider: [facility] Type:CV Holter/Event () Appointment Date:07/25/2023 11:45:00 AM Scheduled Provider:Elliott SOLIS MD [facility] Type:Cardiology Follow Up (FT) Future Scheduled Tests Laboratory* Pancreatic Elastase, Fecal 01/29/23 * Fecal WBC Lactoferrin 01/29/23 * Giardia lamblia, Direct Detection EIA 01/29/23 * O & P Exam, Routine 01/29/23 * Clostridium Difficile PCR 01/29/23 * Enteric Panel by PCR 01/29/23 * CBC w/ Auto Diff 12/25/22 * Comprehensive Metabolic Panel 12/25/22 Radiology* Echo Transthoracic Complete 05/20/23 [facility] Future Appointments Appointment Date:07/25/2023 11:45:00 AM Scheduled Provider:Elliott SOLIS MD [facility] Type:Cardiology Follow Up (FT) Appointment Date:07/30/2023 02:00:00 PM Scheduled Provider:POLLY MARIANO PA-C Location:[facility] Appointment Type:URO Office Visit Future Scheduled Tests Laboratory* Pancreatic Elastase, Fecal 01/29/23 * Fecal WBC Lactoferrin 01/29/23 * Giardia lamblia, Direct Detection EIA 01/29/23 * O & P Exam, Routine 01/29/23 * Clostridium Difficile PCR 01/29/23 * Enteric Panel by PCR 01/29/23 * CBC w/ Auto Diff 12/25/22 * Comprehensive Metabolic Panel 12/25/22 Radiology* Echo Transthoracic Complete 05/20/23 [facility] Future Appointments Appointment Date:07/30/2023 02:00:00 PM Scheduled Provider:POLLY MARIANO PA-C Location:[facility] Appointment Type:URO Office Visit Future Scheduled Tests Laboratory* Pancreatic Elastase, Fecal 01/29/23 * Fecal WBC Lactoferrin 01/29/23 * Giardia lamblia, Direct Detection EIA 01/29/23 * O & P Exam, Routine 01/29/23 * Clostridium Difficile PCR 01/29/23 * Enteric Panel by PCR 01/29/23 * CBC w/ Auto Diff 12/25/22 * Comprehensive Metabolic Panel 12/25/22 Radiology* Echo Transthoracic Complete 05/20/23 [facility] Future Appointments Appointment Date:12/31/2023 01:00:00 PM Scheduled Provider:POLLY MARIANO PA-C Location:[facility] Appointment Type:URO Office Visit Future Scheduled Tests Laboratory* Pancreatic Elastase, Fecal 01/29/23 * Fecal WBC Lactoferrin 01/29/23 * Giardia lamblia, Direct Detection EIA 01/29/23 * O & P Exam, Routine 01/29/23 * Clostridium Difficile PCR 01/29/23 * Enteric Panel by PCR 01/29/23 * CBC w/ Auto Diff 12/25/22 * Comprehensive Metabolic Panel 12/25/22 Radiology* Echo Transthoracic Complete 05/20/23 [facility] evaluation + Plan note Future Appointments Appointment Date:01/01/2024 11:00:00 AM Scheduled Provider:Cady Alva PA-C [facility] Appointment Type:Pain Management - Follow Up (FT) Appointment Date:01/30/2024 02:15:00 PM Scheduled Provider:En Carmen PA-C [facility] Type:Cardiology Follow Up (FT) Appointment Date:01/05/2025 01:00:00 PM Scheduled Provider:POLLY MARIANO PA-C Location:[facility] Appointment Type:URO Office Visit Future Scheduled Tests Laboratory* Pancreatic Elastase, Fecal 01/29/23 * Fecal WBC Lactoferrin 01/29/23 * Giardia lamblia, Direct Detection EIA 01/29/23 * O & P Exam, Routine 01/29/23 * Clostridium Difficile PCR 01/29/23 * Enteric Panel by PCR 01/29/23 Radiology* Echo Transthoracic Complete 05/20/23 [facility] evaluation + Plan note Future Appointments Appointment Date:03/05/2024 03:30:00 PM Scheduled Provider:Andrew Eid DO Location:[facility] Appointment Type:Pain Management - Follow Up (FT) Appointment Date:07/30/2024 01:45:00 PM Scheduled Provider:Kehinde Davalos MD Location:[facility] Appointment Type:Cardiology Follow Up (FT) Appointment Date:01/05/2025 01:00:00 PM Scheduled Provider:POLLY MARIANO PA-C Location:[facility] Appointment Type:URO Office Visit Future Scheduled Tests Radiology* Echo Transthoracic Complete 05/20/23 [facility] noteNo assessment information [facility] Work Phone: Evaluation noteNo InformationNortCrozer-[facility] [employer] Other Evaluation note* Diagnosis Oral thrush Candidiasis of mouth [facility]* Diagnosis Chronic bilateral low back pain with sciatica, sciatica laterality unspecified [facility]* Diagnosis Anxiety state Anxiety state, unspecified [facility]* Diagnosis Chronic bilateral low back pain with bilateral sciatica Diabetic peripheral neuropathy (CMS/HCC) Type II or unspecified type diabetes mellitus with neurological manifestations, not stated as uncontrolled Lumbar radiculopathy Thoracic or lumbosacral neuritis or radiculitis, unspecified documented in this encounter [facility] Healthcare[facility]* Diagnosis Hav (hallux abducto valgus), right- Primary Plantar fasciitis Plantar fascial fibromatosis Diabetes 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 polyneuropathy, with long-term current use of insulin (CMS/HCC) Contracture of right ankle Bone spur of right foot documented in this encounter [facility] HealthcareEvaluation note* Diagnosis Chronic bilateral low back pain with bilateral sciatica Diabetic peripheral neuropathy (CMS/HCC) Type II or unspecified type diabetes mellitus with neurological manifestations, not stated as uncontrolled Lumbar radiculopathy Thoracic or lumbosacral neuritis or radiculitis, unspecified documented in this encounter [facility] HealthcareEvaluation note* Diagnosis Pre-op evaluation- Primary Hallux valgus of right foot Essential hypertension Unspecified essential hypertension Diabetic peripheral neuropathy (CMS-HCC) Type II or unspecified type diabetes mellitus with neurological manifestations, not stated as uncontrolled documented [facility] this encounter [facility]* Diagnosis Anxiety state Anxiety state, unspecified Type 2 diabetes mellitus without complication, without long-term current use of insulin (CMS-HCC) Type 2 diabetes mellitus with diabetic mononeuropathy, without long-term current use of insulin ([facility]) documented in this encounter [facility]* Diagnosis Primary osteoarthritis of left knee- Primary Chronic pain of left knee [facility]* Diagnosis Pain Generalized pain [facility] Diagnosis Right elbow pain Pain in joint, upper arm [facility] Diagnosis Anxiety Anxiety state, unspecified Chronic pain of left knee- Primary Osteoarthritis Osteoarthrosis, unspecified whether generalized or localized, unspecified site Primary osteoarthritis of left knee Chronic pain of left knee documented in this encounter [facility]* Diagnosis Xerosis cutis- Primary Other specified disease of sebaceous glands [facility] Diagnosis Leukocytosis, unspecified type [facility]* Diagnosis Acquired deformity of right toe- Primary Diabetes 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 polyneuropathy, with long-term current use of insulin ([facility]) [facility] Diagnosis Anxiety Anxiety state, unspecified [facility]* Diagnosis Fibromyalgia Unspecified myalgia and myositis [facility] N[facility]ative - Reported* Type Description Date [...] Hospitalization History see above surgical histo ry [place] Other History general Narrative - Reported* Type [...] Hospitalization History see above surgical histo ry [place] Other Hospital course Narrative No data available for this section [facility] Dis[facility] instructions No data available for this section [facility] CenterInstructionsNot on filedocumented in this encounter [facility] [...] note No data available for this section [facility] for referral (narrative)* Diagnostic Procedure Only (Routine) - Closed Specialty Diagnoses / Procedures Referred By Contac t Referred To Contact XR IMAGING Diagnoses Pain Procedures XR SHOULDER GENERAL 3V OR MORE AP/TRUE AP/OTHER RT X-RAY SHOULDER COMPLET MIN 2 VIEWS Randi Farrell DO [address] [place] [address] [place] [address] Referral ID Status Reason Start Date Expiration Date V isits Requested Visits Authorized Closed Auto-Generate d Referral 04/17/2021 05/17/2022 1 1 [facility] for referral (narrative)* Diagnostic Procedure Only (Routine) - Closed Specialty Diagnoses / Procedures Referred By Contac t Referred To Contact XR IMAGING Diagnoses Right elbow pain Procedures XR ELBOW SPECIAL VIEWS AP/LAT/OTHER RT X-RAY ELBOW MINIMUM 3 VIEWS Randi Farrell DO [address] [place] [address] [place] [address] Referral ID Status Reason Start Date Expiration Date V isits Requested Visits Authorized Closed Auto-Generate d Referral 04/19/2021 05/19/2022 1 1 [facility] for visit Narrative* Diagnostic Procedure Only (Routine) - Closed Specialty Diagnoses / Procedures Referred By Contac t Referred To Contact XR IMAGING Diagnoses Pain Procedures XR SHOULDER GENERAL 3V OR MORE AP/TRUE AP/OTHER RT X-RAY SHOULDER COMPLET MIN 2 VIEWS Randi Farrell DO [address] [place] [address] [place] [address] Referral ID Status Reason Start Date Expiration Date V isits Requested Visits Authorized Closed Auto-Generate d Referral 04/17/2021 05/17/2022 1 1 [facility] for visit Narrative* Diagnostic Procedure Only (Routine) - Closed Specialty Diagnoses / Procedures Referred By Contac t Referred To Contact XR IMAGING Diagnoses Right elbow pain Procedures XR ELBOW SPECIAL VIEWS AP/LAT/OTHER RT X-RAY ELBOW MINIMUM 3 VIEWS Randi Farrell, DO [address] [place] [address] [place] [address] Referral ID Status Reason Start Date Expiration Date V isits Requested Visits Authorized Closed Auto-Generate d Referral 04/19/2021 05/19/2022 1 1 [facility] for visit Narrative* Consultation (Routine) - Closed Specialty Diagnoses / Procedures Referred By Jamal t Referred To Contact Medical Oncology / Hematology and Oncology Diagnoses Leukocytosis, unspecified type Robert Giron, DO [address], [place] [address] Phone: tel: fax: Nataliia Simpson MD [address] [place] [address] Phone: tel: fax: Referral ID Status Reason Start Date Expiration Date V isits Requested Visits Authorized [id number] Closed Specialty Services Required 05/06/2024 05/06/2025 1 1 [facility] Summary Purpose Family History Relationship Condition Age at Onset Recorded Date/T [...] Unknown Unknown family member Unknown Advance Directives Advance Directive Response Recorded Date/ Time Advance Directives No May 28, 2019 12:46pm Chief Complaint and Reason for Visit Chief Complaint g02.97 f17.210 Chief Complaint f17.210 Reason for Referral Specialty Diagnoses / Procedures Referred By Contveronique t Referred To Contact Diagnoses Primary osteoarthritis of left knee Chronic pain of left knee Procedures Case request operating room: INJECTION BLOCK NERVE KNEE Left Genicular NB Alexsandra Smart, MYRNA [address], [address] [place] [address] Referral ID Status Reason Start Date Expiration Date V isits Requested Visits Authorized [id number] Pending Review 05/20/2024 05/20/2025 1 1 Additional Source Comments INFORMATION SOURCE (unrecogn ized section and content) DATE CREATED AUTHOR 10/09/2021 [facility] DATE CREATED AUTHOR AUTHOR'S ORGANIZ ATION 02/22/2022 [facility] DATE CREATED AUTHOR AUTHOR'S ORGANIZ ATION 01/28/2023 [facility] DATE CREATED AUTHOR AUTHOR'S ORGANIZ ATION 06/26/2023 [facility] DATE CREATED AUTHOR AUTHOR'S ORGANIZ ATION 03/09/2024 [facility] DATE CREATED AUTHOR AUTHOR'S ORGANIZ ATION 04/04/2024 [facility] DATE CREATED AUTHOR AUTHOR'S ORGANIZ ATION 05/02/2024 [facility] DATE CREATED AUTHOR AUTHOR'S ORGANIZ ATION 05/19/2024 [facility] DATE CREATED AUTHOR AUTHOR'S ORGANIZ ATION 06/20/2024 [facility] EPIC DATE CREATED AUTHOR AUTHOR'S ORGANIZ ATION 07/10/2024 [facility] DATE CREATED AUTHOR AUTHOR'S ORGANIZ ATION 07/29/2024 [facility] Care Team (unrecognized sect ion and content) Team Status: Active Member Role Status Dates Robert Giron DO Primary Care Provider Active Team Status: Inactive Member Role Status Dates Robert Giron DO Primary Care Provider Active Valarie Conley APRN ACNP- Attending Provider Active Director Of Corporate Marketing Relationship Specialty Start Date End Date Robert Giron DO [address], [place] [address] PCP - General Family Medicine 05/10/22 Director Of Corporate Marketing Relationship Specialty Start Date End Date Robert Giron DO [address] [place] [address] PCP - General Family Medicine 05/10/22 Director Of Corporate Marketing Relationship Specialty Start Date End Date Robert Giron DO [address], [place] [address] PCP - General Family Medicine 05/10/22 Director Of Corporate Marketing Relationship Specialty Start Date End Date Robert Giron DO [address], [place] [address] PCP - General Family Medicine 05/10/22 Director Of Corporate Marketing Relationship Specialty Start Date End Date Robert Giron MD [address], [place] [address] PCP - General Family Medicine 07/24/23 Director Of Corporate Marketing Relationship Specialty Start Date End Date Robert Giron DO [address], [place] [address] PCP - General Family Medicine 05/10/22 Director Of Corporate Marketing Relationship Specialty Start Date End Date Robert Giron DO [address], [place] [address] PCP - General Family Medicine 05/10/22 Director Of Corporate Marketing Relationship Specialty Start Date End Date Robert Giron DO [address], [place] [address] PCP - General Family Medicine 05/10/22 Director Of Corporate Marketing Relationship Specialty Start Date End Date Robert Giron DO [address], [place] [address] PCP - General Family Medicine 05/10/22 Director Of Corporate Marketing Relationship Specialty Start Date End Date Robert Giron DO [address], [place] [address] PCP - General Family Medicine 05/10/22 Team Status: Inactive Member Role Status Dates Robert Giron DO Primary Care Provider Active Start: March 31, 2024 End: March 31, 2024 Valarie Conley APRN [facility] Attending Provider Active Start: March 31, 2024 End: March 31, 2024 Director Of Corporate Marketing Relationship Specialty Start Date End Date Robert Giron DO [address], [place] [address] PCP - General Family Medicine 05/10/22 Director Of Corporate Marketing Relationship Specialty Start Date End Date Robert Giron DO [address], [place] [address] PCP - General Family Medicine 05/10/22 Director Of Corporate Marketing Relationship Specialty Start Date End Date Robert Giron DO [address], [place] [address] PCP - General Family Medicine 05/10/22 Director Of Corporate Marketing Relationship Specialty Start Date End Date Robert Giron DO [address] [place] [address] PCP - General Family Medicine 05/10/22 Director Of Corporate Marketing Relationship Specialty Start Date End Date Robert Giron MD [address] [place] [address] PCP - General Family Medicine 07/24/23 Director Of Corporate Marketing Relationship Specialty Start Date End Date Robert Giron DO [address] [place] [address] PCP - General Family Medicine 05/10/22 Director Of Corporate Marketing Relationship Specialty Start Date End Date Robert Giron MD [address], [place] [address] PCP - General Family Medicine 07/24/23 Director Of Corporate Marketing Relationship Specialty Start Date End Date Robert Giron DO [address], [place] [address] PCP - General Family Medicine 05/10/22 Director Of Corporate Marketing Relationship Specialty Start Date End Date Robert Giron MD [address], [place] [address] PCP - General Family Medicine 07/24/23 Director Of Corporate Marketing Relationship Specialty Start Date End Date Robert Giron DO [address], [place] [address] PCP - General Family Medicine 05/10/22 Director Of Corporate Marketing Relationship Specialty Start Date End Date Robert Giron DO [address], [place] [address] PCP - General Family Medicine 05/10/22 Director Of Corporate Marketing Relationship Specialty Start Date End Date Robert Giron MD [address], [place] [address] PCP - General Family Medicine 07/24/23 Director Of Corporate Marketing Relationship Specialty Start Date End Date Robert Giron DO [address], [place] [address] PCP - General Family Medicine 05/10/22 Goals [...] Med Refill 11/04/2023 Reason Comments Knee Pain Reason Onset Date Comments pain 06/09/2024 Reason Onset Date Comments L knee pain 06/15/2024 Reason Comments Toenail Problem Rt 2nd toe nail issu e Source Comments (unrecognize d section and content) In the event this informatio n is protected by the Federal Confidentiality of Alcohol and Drug Abuse Patient Records regulations: The Federal rules restrict any use of the information to criminally investigate or prosecute any alcohol or drug abuse patient.[facility] FOR RECORDS PERTAINING TO PATIENTS WHO ARE [...] BE BASED ON THE PRIMARY CLINICAL RECORDS. [employer] provides no warranty or guarantee of the accuracy or completeness of information in this document.
== END 2024-07-29 19:51 | disposition home or self-care (01) ==
LOC: LAB 19:50
PROVIDERS: PCP Family Medicine; Visit Provider Obstetrics & Gynecology
DX: Z01.419 Encounter for gynecological examination (general) (routine) without abnormal findings (principal); Z90.710 Acquired absence of both cervix and uterus
CPT/HCPCS: 87624; 88175

== ENCOUNTER 2024-08-27 13:27 | Outpatient (OUT) | payer OTHER, SELFPAY ==
--- NOTE | 2024-08-27 13:55 | XR_ITS ---
The [address] [address] Patient Name: ROCK HERRERA MRN: [id number] date: 1970 Sex: F Assigned Patient Location: [facility] Current Patient Location: [facility] Accession/Order Number: [id number] Exam Date: 08/27/2024 13:35 Report Date: 08/27/2024 14:15 At the request of: FREDERICK MAHARAJ Procedure: XR DEXA axial skeleton EXAMINATION: XR DEXA axial skeleton, 08/27/2024 1:35 PM EST HISTORY: Osteoporosis COMPARISON: 2021. TECHNIQUE: Dual-energy X-ray absorptiometry (DEXA) bone density study performed for the axial skeleton. FINDINGS: Bone mineral density AP spine L1-L4 measures 1.153 g/sq cm. T score -0.2. Normal. Lowest bone mineral density is in the right femoral trochanter measuring 0.577 g/sq cm T score -2.4. Osteopenia XR/XR DEXA axial skeleton IMPRESSION: Osteopenia. Moderate fracture risk Pharmacologic treatment recommendations * No uniform recommendation applies to all patients. Management plans must be individualized. * Consider initiating pharmacologic treatment in postmenopausal women and men >= 50 years of age who have the following: Primary fracture prevention: * T-score <= - 2.5 at the femoral neck, total hip, lumbar spine, 33% radius (some uncertainty with existing data) by DXA. * Low bone mass (osteopenia: T-score between - 1.0 and - 2.5) at the femoral neck or total hip by DXA with a 10-year hip fracture risk >= 3% or a 10-year major osteoporosis-related fracture risk >= 20% (i.e., clinical vertebral, hip, forearm, or proximal humerus) based on the [place]-adapted FRAXregistered model. Secondary fracture prevention: * Fracture of the hip or vertebra regardless of BMD [4, 5]. * Fracture of proximal humerus, pelvis, or distal forearm in persons with low bone mass (osteopenia: T-score between - 1.0 and - 2.5). The decision to treat should be individualized in persons with a fracture of the proximal humerus, pelvis, or distal forearm who do not have osteopenia or low BMD [12, 13]. Juno MOE, Micaela GARNER, Coy KL, Dora EM, Joceline KG, AJ, Catherine ES. The clinician's guide to prevention and treatment of osteoporosis. Osteoporos Int. 2021;33(10):2656-6253. doi: 10.1007/e56158-920-65369-j. Epub 2021Dec 14. Erratum in: Osteoporos Int. 2021Mar 15;: PMID: [id number]; PMCID: [id number]. Electronically authenticated by: MAMIE HERNANDEZ Date: 08/27/2024 14:15
== END 2024-08-27 13:28 | disposition home or self-care (01) ==
LOC: RAD 13:27
PROVIDERS: PCP Family Medicine; Visit Provider Obstetrics & Gynecology
DX: M81.0 Age-related osteoporosis without current pathological fracture (principal); M85.80 Other specified disorders of bone density and structure, unspecified site
CPT/HCPCS: 77080

== ENCOUNTER 2024-09-29 13:18 | Outpatient (OUT) | payer OTHER, SELFPAY ==
--- NOTE | 2024-09-29 13:20 | MM_ITS ---
Patient Name: ROCK HERRERA MR#: [id number] : 1970 Exam Date: 09/29/2024 Ordering Doctor: DR David Villalobos . RADIOLOGY REPORT PROCEDURE: MM TOMOSYNTHESIS SCREENING BI COMPARISON: MM TOMOSYNTHESIS SCREENING BI, 09/27/2023. MG MAMM DIAGNOSTIC 3D TAJ CAD, 09/10/2022. INDICATIONS: Screening Calculator Name NCI Breast Cancer Risk Assessment Tool 5 Year Breast Cancer Risk 1.20% Lifetime Breast Cancer Risk 9.00% Personal Breast Cancer No Personal Ovarian Cancer No Treatments None Family Cancers Mother with ovarian cancer at age ~60. LOCATION: [facility] BREAST COMPOSITION: The breasts are heterogeneously dense,which may obscure small masses. FINDINGS: DIAGNOSTIC CATEGORY 2--BENIGN FINDING. NO CHANGE FROM COMPARISON. Scattered benign-appearing calcifications are present. Scattered benign-appearing lymph nodes are present. RIGHT BREAST: No significant suspicious finding. LEFT BREAST: No significant suspicious finding. RECOMMENDATIONS: ROUTINE MAMMOGRAM AND CLINICAL EVALUATION IN 12 MONTHS. PLEASE NOTE: A NORMAL MAMMOGRAM DOES NOT EXCLUDE THE POSSIBILITY OF BREAST CANCER. A CLINICALLY SUSPICIOUS PALPABLE LUMP SHOULD BE BIOPSIED. Dictated by: Donny Coombs MD on 09/29/2024 at 14:43 Approved by: Donny Coombs MD on 09/29/2024 at 14:44
== END 2024-09-29 13:19 | disposition home or self-care (01) ==
LOC: MAMMO 13:18
PROVIDERS: PCP Nurse Practitioner Adult Health; Visit Provider Obstetrics & Gynecology
DX: Z12.31 Encounter for screening mammogram for malignant neoplasm of breast (principal); Z80.41 Family history of malignant neoplasm of ovary
CPT/HCPCS: 77063; 77067

== ENCOUNTER 2024-09-29 20:36 | Outpatient (OUT) | payer OTHER, SELFPAY ==
--- OUTSIDE RECORDS SUMMARY | 2024-09-29 20:43 | XMS_ITS | CCD ---
Author Organization [facility] Care Team Providers Care Head Of Product Name Role Phone ROBERT GIRON Primary Care Physician YaelValarie Unavailable YAELVALARIE Attending Unavailable FURLOCHARLI, DR ROBERT Santiago Primary Care Unavailable YAEL, VALARIE Admitting Unavailable NEFCY, PETER Consulting Unavailable YAEL, VALARIE Consulting Unavailable CAROLA ., JAMAR Attending [...] NEFCYNICOLE Consulting Unavailable JAJA, ELIUD Attending Unavailable FURLOCHARLI, DR ROBERT Santiago Primary Care Unavailable JAJA, ELIUD Admitting Unavailable MISC, DR MALIN Admitting Unavailable MISC, DR MALIN Attending Unavailable FURLOCHARLI, DR ROBERT Santiago Primary Care Unavailable MISC, DR MALIN Admitting Unavailable FURLOCHARLI, DR ROBERT Santiago Primary Care Unavailable MISC, DR MALIN Attending Unavailable WILFREDO ., DR MACK Consulting Unavailable WILFREDO ., DR MACK Attending Unavailable WILFREDO ., DR MACK Admitting Unavailable FURLONG, DR ROBERT Santiago Primary Care Unavailable ZIEBVENU, DR DELORES Moreira Consulting Unavailable JAJA, ELIUD Admitting Unavailable JAJA, ELIUD Attending Unavailable FURLOCHARLI, DR ROBERT Santiago Primary Care Unavailable CHRISTOPHER, DR MAMIE Quintana Consulting Unavailable JAJA, ELIUD Consulting Unavailable MISC, DR MALIN Attending Unavailable MISC, DR MALIN Admitting Unavailable FURLONG, DR ROBERT Santiago Primary Care Unavailable FURLONG, DR ROEBRT Santiago Consulting Unavailable CHRISTOPHER, DR MAIME Quintana Consulting Unavailable MISC, DR MALIN Consulting Unavailable WILFREDO ., DR MACK Consulting Unavailable WILFREDO ., DR MACK Attending Unavailable FURLONG, DR ROBERT Santiago Primary Care Unavailable WILFREDO ., DR MACK Admitting Unavailable ZIEBER, DR DELORES Moreira Consulting Unavailable FURLONG, DR ROBERT Santiago Primary Care Unavailable REINECK, DR JEAN-PIERRE Santiago Consulting Unavailabl e REINECK, DR JEAN-PIERRE Santiago Attending Unavailabl e REINECK, DR JEAN-PIERRE Santiago Admitting Unavailabl e SUJIT MITCHELL Consulting Unavailable FURLONG, DR ROBERT Santiago Primary Care Unavailable REINECK, DR JEAN-PIERRE Santiago Consulting Unavailabl e REINECK, DR JEAN-PIERRE Santiago Attending Unavailabl e REINECK, DR JEAN-PIERRE Santiago Admitting Unavailabl e RASTEKAUSHIK LILIANA Consulting Unavailable FURLONG, DR ROBERT Santiago Primary Care Unavailable KIERSTEN ., SHARYN LEES Consulting UnavailTUTU Mclean Attending Unavailable TUTU NOLASCO Admitting Unavailable Bree, DO Jones Primary Care Provider WILMA Conley Attending Provider CARLOS SANCHEZ Referring Unavailable DRAGAN SEN Primary Care Unavailable Furng Robert BYRNES Primary Care Provider Robert Giron MD Primary Care Provider DO Robert Giron Primary Care Provider WILMA Conley Attending Provider [phone] Valarie Conley Attending Unavailable Valarie Conley Admitting Unavailable Robert Giron Primary Care Unavailable Unavailable Primary Care Provider Unavailabl e ROBERT GIRON Primary Care Unavailable PHIL NASH Attending Unavailable PHIL NASH Referring Unavailable BREE, ROBERT Santiago Primary Care Unavailable JOEL ALSTON Referring Unavailable BREE, ROBERT Santiago Primary Care Unavailable KURT CHAPMAN Attending Unavailable KURT CHAPMAN Referring Unavailable FURMELVINNG, ROBERT Santiago Primary Care Unavailable JOEL ALSTON Referring Unavailable ROSALINELONG, ROBERT G Primary Care Unavailable FURLONG, ROBERT [...] Unavailable FURLONG, ROBERT G Primary Care Unavailable AVI MAHARAJ Attending Unavailable AVI MAHARAJ Referring Unavailable FURLONG, ROBERT G Primary Care Unavailable AVI MAHARAJ Admitting Unavailable AVI MAHARAJ Attending Unavailable FURLONG, ROBERT G Referring Unavailable FURLONG, ROBERT G Primary Care Unavailable BRANDON SIMPSON Attending Unavailable FURLONG, ROBERT G Referring Unavailable FURLONG, ROBERT G Primary Care Unavailable DUANE NICOLE Referring Unavailable FURLONG, ROBERT G Primary Care Unavailable FURLONG, ROBERT G Primary Care Unavailable FURLONG, ROBERT G Primary Care Unavailable KURT BALDWIN Attending Unavailable NONE, XXXX Referring Unavailable Cady Alva Admitting Unavailable Cady Alva Attending Unavailable Andrew Eid Admitting Unavailable Andrew Eid Attending Unavailable FURLONG, ROBERT Referring Unavailable MYRNA Alva Admitting Unavailabl e FURLONG, ROBERT Referring Unavailable Cady Alva Attending Unavailable Cady Alva Attending Unavailable MYRNA Alva Admitting Unavailabl e FURLONG, ROBERT Referring Unavailable NONE, XXXX Referring Unavailable Kehinde Davalos Attending Unavailable Kehinde Davalos Admitting Unavailable NONE, XXXX Referring Unavailable En Carmen Attending Unavailable Andrew Eid Attending Unavailable Andrew Eid Referring Unavailable DO Andrew Eid Admitting Unavailabl e POLLY MARIANO Attending Unavailable POLLY MARIANO Attending Unavailable POLLY MARIANO Attending Unavailable Cady Alva Attending Unavailable Carlos Sanchez Referring Unavailable MYRNA Alva Admitting Unavailabl e FURLONG, ROBERT G Referring Unavailable FURLONG, ROBERT G Primary Care Unavailable ALECIA, JOEL L Attending Unavailable FURLONG, ROBERT G Referring Unavailable FURLONG, ROBERT G Primary Care Unavailable ALECIA, JOEL L Attending Unavailable FURLONG, ROBERT G Referring Unavailable FURLONG, ROBERT G Primary Care Unavailable FURLONG, ROBERT G Attending Unavailable FURLONG, ROBERT G Referring Unavailable FURLONG, ROBERT G Attending Unavailable FURLONG, ROBERT G Primary Care Unavailable FURLONG, ROBERT G Referring Unavailable FURLONG, ROBERT G Attending Unavailable FURLONG, ROBERT G Primary Care Unavailable FURLONG, ROBERT G Referring Unavailable FURLONG, ROBERT G Attending Unavailable FURLONG, ROBERT G Primary Care Unavailable FURLONG, ROBERT G Referring Unavailable FURLONG, ROBERT G Primary Care Unavailable ALECIA, JOEL L Attending Unavailable FURLONG, ROBERT G Referring Unavailable FURLONG, ROBERT G Primary Care Unavailable FURLONG, ROBERT G Referring Unavailable FURLONG, ROBERT G Primary Care Unavailable NICOLEDUANE MAHER Attending Unavailable FURLONG, ROBERT G Referring Unavailable FURLONG, ROBERT G Primary Care Unavailable JACQUELIN NICOLEADELillie Young Attending Unavailable SHMUEL LEVINE Attending Unavailable SHENDGE, VITHAL Referring Unavailable NIKKI VERGARA Attending Unavailable GRICELDA HAMMOND Attending Unavailable SHENDGE, VITHAL Referring Unavailable SHMUEL LEVINE Attending Unavailable SHENDGEANAHIHAL Referring Unavailable MARTIN ARANGO Attending Unavailable MARTIN ARANGO Attending Unavailable MARTIN ARANGO Referring Unavailable MARTIN ARANGO Attending Unavailable MARTIN ARANGO Attending Unavailable CARLOS SANCHEZ Attending Unavailable MARTIN ARANGO Attending Unavailable MARTIN ARANGO Referring Unavailable MARTIN ARANGO Attending Unavailable MARTIN ARANGO Attending Unavailable GALO CORONADO Attending Unavailable FURLONG, ROBERT G Referring Unavailable CARLOS SANCHEZ Attending Unavailable CATY MALHOTRA Attending Unavailable FURLONG, ROBERT G Referring Unavailable CATY MALHOTRA Attending Unavailable FURLONG, ROBERT G Referring Unavailable ANDRIA CARTER Attending Unavailable FURLONG, ROBERT G Referring Unavailable BROWNMARTIN Attending Unavailable GALO CORONADO Attending Unavailable FURLONG, ROBERT G Referring Unavailable CATY MALHOTRA Attending Unavailable BREE, ROBERT Santiago Referring Unavailable SHMUEL LEVINE Attending Unavailable IVONNE, ANA Attending Unavailable ADELA, KURT Referring Unavailable BLACKSTON, ANA Attending Unavailable ADELA, KURT Referring Unavailable BLACKSTON, NAA Attending Unavailable ADELA, KURT Referring Unavailable BLACKSTON, ANA Attending Unavailable ADELA, KURT Referring Unavailable BROWN, MARTIN Jerome Attending Unavailable APLING, CJ Talbot Attending Unavailable BROWN, MARTIN Jerome Attending Unavailable APLING, CJ Talbot Attending Unavailable QUINTON, PASTORA Jerome Attending Unavailable BLACKSTON, GALO Lee Attending Unavailable APLING, CJ Talbot Referring Unavailable QUINTON, PASTORA Jerome Attending Unavailable BROWN, MARTIN Jerome Attending Unavailable BROWN, MARTIN Jerome Referring Unavailable SANCHEZ, CARLOS Smith Attending Unavailable BROWN, MARTIN Jerome Attending Unavailable BROWN, MARTIN Jerome Attending Unavailable WILFREDODAVID Attending Unavailable SANCHEZ, CARLOS Smith Attending Unavailable HAMMOND, GRICELDA Attending Unavailable SHENDGE, JOSSELINE Referring Unavailable ABNER, SHMUEL Attending Unavailable SHENDGE, JOSSELINE Referring Unavailable SKIE, LAN Attending Unavailable QUINTON, Carmina POTTS Referring Unavailable SKIE, LAN Attending Unavailable SHENDGE, JOSSELINE Attending Unavailable SKIE, LAN Attending Unavailable QUINTON, Carmina POTTS Referring Unavailable SKIE, LAN Attending Unavailable SKIE, LAN Admitting Unavailable SHENDGE, VITHAL Referring Unavailable SHENDGE, VITHAL Referring Unavailable Allergies Allergy Classification Reported Allergen(s) Allergy Type Date of Onset Reaction(s) Facility (20 sources) Acetaminophen / HYDROcodone; Translations: [acetaminophen-hydr ocodone] Drug Allergy Unknown (qualifier value), rash [facility] (20 sources) Adhesive Tape; Translations: [Tape] Drug allergy Eruption of skin (disorder), rash [facility] (20 sources) Amitriptyline; Translations: [amitriptyline] Drug Allergy 013 Vomiting (disorder), Abnormal Behavior, Mental Status Change [facility] (20 sources) Amoxicillin; Translations: [amoxicillin] Drug Allergy 015 Vomiting [facility] (20 sources) Amoxicillin / Clavulanate; Translations: [amoxicillin-clavul anate] Drug Allergy 017 Vomiting (disorder), GI Disturbance [facility] (20 sources) atomoxetine; Translations: [atomoxetine] Drug Allergy Palpitations, Other (See Comments) [facility] Comment on above: (atomoxetine) (20 sources) buPROPion; Translations: [bupropion] Drug Allergy Palpitations [facility] (20 sources) Codeine; Translations: [codeine] Drug Allergy Eruption of skin (disorder), Hives, Rash [facility] (20 sources) Dexamethasone; Translations: [dexamethasone] Drug Allergy Menopausal flushing (finding), Unknown [facility] Comment on above: (dexamethasone) (20 sources) Doxycycline; Translations: [doxycycline] Drug Allergy GI Disturbance, Palpitations, Other: See Comments [facility] (20 sources) DULoxetine; Translations: [duloxetine] Drug Allergy 019 Unknown (qualifier value), hives [facility] (20 sources) fluticasone; Translations: [fluticasone] Drug Allergy 014 Unknown (qualifier value) [facility] (20 sources) fluticasone / salmeterol; Translations: [fluticasone-salmet su] Drug Allergy 013 Eruption of skin (disorder), rash, Itching, Palpitations, Unknown [facility] (20 sources) gabapentin; Translations: [gabapentin] Drug Allergy 019 Unknown (qualifier value) [facility] (20 sources) Ibuprofen; Translations: [ibuprofen] Drug Allergy 012 Eruption of skin (disorder), rash, GI Disturbance, Nausea And Vomiting [facility] (20 sources) Ketorolac; Translations: [ketorolac] Drug Allergy 011 Unknown (qualifier value), Other: See Comments [facility] (20 sources) meloxicam; Translations: [meloxicam] Drug Allergy 019 Unknown (qualifier value) [facility] (20 sources) Methadone; Translations: [methadone] Drug Allergy Vomiting (disorder), GI Disturbance, Nausea And Vomiting, Vomiting [facility] (20 sources) milnacipran; Translations: [milnacipran] Drug Allergy 022 Unknown (qualifier value), Other (See Comments) [facility] (20 sources) moxifloxacin; Translations: [moxifloxacin] Drug Allergy 012 Eruption of skin (disorder), rash, Nausea Only, Nausea [facility] (20 sources) NITROFURANTOIN, MACROCRYSTALS / Nitrofurantoin, Monohydrate; Translations: [nitrofurantoin] Drug Allergy Other (See Comments) [facility] (20 sources) OXcarbazepine; Translations: [oxcarbazepine] Drug Allergy 011 Unknown (qualifier value), GI Disturbance, Palpitations, Other: See Comments [facility] (20 sources) PARoxetine; Translations: [paroxetine] Drug Allergy 023 Unknown (qualifier value), Hives [facility] (20 sources) Penicillins; Translations: [penicillins] Drug allergy 011 Unknown (qualifier value), GI Disturbance, Hives, Other (See Comments), Vomiting [facility] (20 sources) pregabalin; Translations: [pregabalin] Drug Allergy 013 Unknown (qualifier value), Other (See Comments), Palpitations, Mental Status Change [facility] (20 sources) rOPINIRole; Translations: [ropinirole] Drug Allergy 019 Altered mental status [facility] (20 sources) Shellfish; Translations: [shellfish] Drug allergy Eruption of skin (disorder), rash [facility] (20 sources) Sulfamethoxazole / Trimethoprim; Translations: [sulfamethoxazole-t rimethoprim] Drug Allergy Vomiting (disorder), Hives, Vomiting [facility] (20 sources) topiramate; Translations: [topiramate] Drug Allergy Vomiting (disorder), GI Disturbance, Other (See Comments), Unknown [facility] (20 sources) Valproate; Translations: [divalproex sodium] Drug Allergy Alopecia (disorder) [facility] (20 sources) Verapamil; Translations: [verapamil] Drug Allergy 013 Vomiting (disorder), GI Disturbance, GI intolerance, Vomiting [facility] (20 sources) ziprasidone; Translations: [ziprasidone] Drug Allergy 011 Unknown (qualifier value), Palpitations, Other (See Comments) [facility] (6 sources) Adhesive Tape; Translations: [Adhesive tape] Allergy to substance contact dermatitis [facility] (20 sources) Fish Containing Products; Translations: [Fish Containing Products] Allergy to substance Rash [facility] (6 sources) Codeine Drug Allergy rash [facility] Other (6 sources) torodol Propensity to adverse reactions severe abdominal pain [facility] Other (20 sources) Methocarbamol; Translations: [methocarbamol] Drug Allergy 023 Unknown (qualifier value), Other (See Comments) [facility] (2 sources) Acetaminophen / HYDROcodone Drug Allergy [facility] (2 sources) Amitriptyline Drug Allergy [facility] (2 sources) Amoxicillin / Clavulanate Drug Allergy [facility] (3 sources) atomoxetine; Translations: [Strattera] Drug Allergy [facility] (1 source) atorvastatin Drug Allergy [facility] (2 sources) buPROPion Drug Allergy 013 [facility] (2 sources) carBAMazepine Drug Allergy [facility] (1 source) Clindamycin Drug Allergy 016 [facility] (2 sources) Codeine Drug Allergy 013 [facility] (3 sources) Dexamethasone; Translations: [Decadron] Drug Allergy [facility] (2 sources) Diclofenac Drug Allergy 015 [facility] (2 sources) Doxycycline Drug Allergy [facility] (2 sources) DULoxetine Drug Allergy [facility] (20 sources) Fish derivative; Translations: [FISH DERIVED] Drug allergy (disorder) Hives [facility] (2 sources) Fluorometholone Drug Allergy [facility] (2 sources) fluticasone / salmeterol Drug Allergy [facility] (2 sources) gabapentin Drug Allergy [facility] (2 sources) hydrOXYzine Drug Allergy [facility] (2 sources) Ibuprofen Drug Allergy [facility] (2 sources) Ibuprofen Drug Allergy [facility] (1 source) Ketorolac Drug Allergy [facility] (2 sources) Ketorolac Drug Allergy [facility] (2 sources) meloxicam Drug Allergy [facility] (2 sources) Methadone Drug Allergy [facility] (2 sources) Methocarbamol Drug Allergy 015 [facility] (2 sources) milnacipran Drug Allergy [facility] (2 sources) moxifloxacin Drug Allergy [facility] (2 sources) Nitrofurantoin Drug Allergy [facility] (2 sources) OXcarbazepine Drug Allergy [facility] (2 sources) PARoxetine Drug Allergy [facility] (3 sources) pregabalin; Translations: [Lyrica] Drug Allergy [facility] (2 sources) rOPINIRole Drug Allergy [facility] (1 source) Sulfonamides (Antibiotic) Drug allergy (disorder) [facility] (2 sources) topiramate Drug Allergy [facility] (2 sources) Valproate Drug Allergy [facility] (1 source) Verapamil Drug Allergy [facility] (3 sources) ziprasidone; Translations: [Geodon] Drug Allergy 013 [facility] (14 sources) Adhesive agent; Translations: [adhesive] Drug allergy 012 [facility] Work Phone: (20 sources) Shellfish Drug allergy [facility] [place] Other (20 sources) atomoxetine; Translations: [ATOMOXETINE HCL] Drug Allergy 011 GI Disturbance, Palpitations, Other: See Comments [facility] (20 sources) buPROPion; Translations: [BUPROPION HCL] Drug Allergy GI Disturbance, Palpitations, Other: See Comments [facility] (20 sources) DULoxetine; Translations: [DULOXETINE HCL] Drug Allergy [facility] (20 sources) Eicosapentaenoate; Translations: [EICOSAPENTAENOIC ACID] Drug Allergy [facility] (9 sources) Ketorolac; Translations: [KETOROLAC TROMETHAMINE] Drug Allergy Other (See Comments) [facility] (12 sources) moxifloxacin; Translations: [MOXIFLOXACIN-SOD.C HLORIDE(ISO)] Drug Allergy 015 Nausea, Unknown [facility] (9 sources) PARoxetine; Translations: [PAROXETINE HCL] Drug Allergy [facility] (20 sources) Shellfish; Translations: [shellfish derived] Propensity to adverse reactions to drug [facility] (20 sources) Sulfamethoxazole; Translations: [SULFAMETHOXAZOLE] Drug Allergy Other (See Comments) [facility] (20 sources) Valproate; Translations: [DIVALPROEX] Drug Allergy [facility] (20 sources) Valproate; Translations: [VALPROIC ACID] Drug Allergy [facility] (20 sources) Verapamil; Translations: [VERAPAMIL HCL] Drug Allergy [facility] (20 sources) ziprasidone; Translations: [ZIPRASIDONE HCL] Drug Allergy Palpitations, Hives, Other: See Comments [facility] (20 sources) Adhesive Tape-Silicones; Translations: [ADHESIVE TAPE-SILICONES] Propensity to adverse reactions to drug Other (See Comments), Rash [facility] (20 sources) atomoxetine Drug Allergy Palpitations [facility] (20 sources) Ketorolac Propensity to adverse reactions 015 [facility] (20 sources) Ketorolac trometamol Allergy to substance 011 Hives [facility] (20 sources) meloxicam Drug Allergy [facility] (20 sources) Methocarbamol Drug Allergy 023 [facility] (20 sources) milnacipran Drug Allergy Hives [facility] (20 sources) Nitrofurantoin Drug Allergy Hives, Rash [facility] (20 sources) Oxcarbazepine Allergy to substance 011 GI intolerance, Hives, Palpitations [facility] (20 sources) Pregabalin Allergy to substance 013 Palpitations [facility] (20 sources) Shellfish Allergy to substance Rash [facility] (20 sources) Sulfamethoxazole Propensity to adverse reactions 022 [facility] (20 sources) Topiramate Allergy to substance 023 GI intolerance [facility] (20 sources) Valproate Drug Allergy [facility] (20 sources) ziprasidone Drug Allergy 011 Palpitations [facility] (20 sources) Amoxicillin-Pot Clavulanate; Translations: [AMOXICILLIN-POT CLAVULANATE] Drug Intolerance 011 Nausea And Vomiting [facility] (20 sources) Aloe-Sodium Chloride Propensity to adverse reactions 024 [facility] (20 sources) Fish-Derived Products Drug Intolerance [facility] (20 sources) Moxifloxacin Hcl In Nacl Drug Intolerance [facility] (20 sources) Other; Translations: [OTHER] Propensity to adverse reactions Hives [facility] (20 sources) Wound Dressing Adhesive Drug Allergy [facility] (20 sources) Aloe vera preparation; Translations: [SODIUM CHLORIDE-ALOE VERA] Drug Allergy [facility] (2 sources) Acetaminophen; Translations: [acetaminophen] Drug Allergy [facility] (2 sources) Clavulanate; Translations: [clavulanic acid] Drug Allergy vomiting [facility] (2 sources) HYDROcodone; Translations: [hydrocodone] Drug Allergy [facility] (2 sources) salmeterol; Translations: [salmeterol] Drug Allergy [facility] (2 sources) Trimethoprim; Translations: [trimethoprim] Drug Allergy vomiting [facility] (2 sources) Valproate; Translations: [divalproex sodium] Drug Allergy hair loss [facility] (1 source) Amitriptyline Drug Allergy [facility] (1 source) Amoxicillin Drug Allergy [facility] (1 source) atomoxetine Drug Allergy [facility] (1 source) buPROPion Drug Allergy [facility] (1 source) Codeine Drug Allergy [facility] (1 source) Dexamethasone Drug Allergy [facility] (1 source) Doxycycline Drug Allergy [facility] (1 source) DULoxetine Drug Allergy [facility] (1 source) fluticasone Drug Allergy [facility] (1 source) gabapentin Drug Allergy [facility] (1 source) Ibuprofen Drug Allergy [facility] (1 source) Ketorolac Drug Allergy [facility] (1 source) meloxicam Drug Allergy [facility] (1 source) Methadone Drug Allergy [facility] (1 source) milnacipran Drug Allergy [facility] (1 source) moxifloxacin Drug Allergy [facility] (1 source) OXcarbazepine Drug Allergy [facility] (1 source) PARoxetine Drug Allergy [facility] (1 source) pregabalin Drug Allergy [facility] (1 source) rOPINIRole Drug Allergy [facility] (1 source) Sulfamethoxazole Drug Allergy [facility] (1 source) topiramate Drug Allergy [facility] (1 source) Verapamil Drug Allergy [facility] (1 source) ziprasidone Drug Allergy [facility] (2 sources) Adhesive Tape Propensity to adverse reactions to substance Rash [facility] (20 sources) Aloe Extract; Translations: [ALOE] Drug Allergy [facility] (4 sources) Dexamethasone; Translations: [DEXAMETHASONE (PF)] Drug Allergy [facility] (4 sources) Sulfamethoxazole / Trimethoprim; Translations: [SULFAMETHOXAZOLE-T RIMETHOPRIM] Drug Allergy [facility] (20 sources) IODINATED CONTRAST MEDIA; Translations: [IODINATED CONTRAST MEDIA] Propensity to adverse reactions to drug (disorder) Anaphylaxis [facility] (4 sources) NITROFURANTOIN MONOHYD/M-CRYST; Translations: [NITROFURANTOIN MONOHYD/M-CRYST] Propensity to adverse reactions to drug (disorder) [facility] (4 sources) FLUTICASONE PROPION-SALMETEROL; Translations: [FLUTICASONE PROPION-SALMETEROL] Propensity to adverse reactions to drug (disorder) 013 [facility] (4 sources) SHELLFISH CONTAINING PRODUCTS; Translations: [SHELLFISH CONTAINING PRODUCTS] Propensity to adverse reactions to food (disorder) [facility] (17 sources) Fish - dietary Propensity to adverse reactions 012 Hives, Rash [facility] (1 source) Fish - dietary; Translations: [Fish] Food allergy (disorder) [facility] Medications Current Medications Medication Drug Class(es) Dates Sig (Normalized) Sig (Original) acetaminophen 325 mg / oxyCODONE hydrochloride 5 mg oral tablet (20 sources) Opioid Agonist Start: 08-26-2024 End: 09-15-2024 take 1 tablet by mouth every eight hours as needed oxyCODONE-acetami nophen (PERCOCET) 5-325 mg per tablet Take 1 tablet by mouth every 8 (eight) hours as needed. Max Daily Amount: 3 tablets 08/26/2024 09/15/2024 Active Start: 08-26-2024 take 1 tablet by colin th every four hours for pain acetaminophen-oxycodone 325 mg-5 mg Tab 1 tab(s), Oral, q4hr for pain, Refill(s) 0 Start Date: 08/26/24 Status: Ordered Start: 08-03-2024 oxyCODONE-acet aminophen (Percocet) 5-325 MG tablet TAKE 1 TABLET BY MOUTH EVERY 6 (SIX) HOURS IF NEEDED FOR SEVERE PAIN (8-10 PAIN SCORE) FOR UP TO 5 DAYS. 08/03/2024 Active Start: 04-21-2024 End: 04-28-2024 take 1 tablet by mouth every six hours for pain oxyCODONE-acetaminophen (Percocet) 10-32 5 MG tablet Indications: Paronychia of toe of left foot Take 1 tablet by mouth every 6 (six) hours if needed for severe pain for up to 5 days 15 tablet 04/23/2024 04/28/2024 Active Start: 04-09-2024 End: 04-14-2024 take 1 tablet by mouth every six hours for pain oxyCODONE-acetaminophen (Percocet) 10-32 5 MG tablet Indications: Paronychia of toe of left foot Take 1 tablet by mouth every 6 (six) hours if needed for severe pain for up to 5 days 15 tablet 04/09/2024 04/14/2024 Active Start: 09-26-2023 End: 10-01-2023 take 1 tablet by mouth every six hours for pain oxyCODONE-acetaminophen (Percocet) 10-32 5 MG tablet Indications: Hav (hallux abducto valgus), [...] Blood glucose Start Date: 10/25/21 Status: Ordered [id number] 200 actuat albuterol 0.09 mg/actuat metered dose [...] and 1 puff before bedtime. Active take 2 puff(s) by in halation every six hours as needed for wheezing albuterol (PROVENTIL HFA;VENTOLIN HFA) 9 0 mcg/actuation inhaler Inhale 2 puffs every 6 (six) hours as needed for wheezing. Active take 1 puff(s) by in halation [...] MEDICINE OF THE DAY WITH PLAIN WATER 4 tablet 11 06/19/2024 Active ALPRAZolam 1 mg oral tablet (20 sources) Benzodiazepine Start: 04-25-2024 End: 07-25-2024 take 1 tablet by mouth three times daily as needed for anxiety ALPRAZolam (XANAX) 1 mg tablet Indications: Anxiety TAKE ONE TABLET BY MOUTH THREE TIMES A DAY NEEDED FOR ANXIETY 90 tablet 4 07/25/2024 Active Start: 11-01-2023 take 1 tablet by colin th three times daily as needed for anxiety ALPRAZolam (XANAX) 1 mg tablet Indications: Anxiety state TAKE ONE TABLET BY MOUTH THREE TIMES A DAY NEEDED FOR ANXIETY 90 tablet 0 11/01/2023 Active Start: 09-02-2023 End: 10-30-2023 take 1 tablet by mouth [...] tablet (20 sources) Atypical Antipsychotic Start: 03-21-2024 End: 09-19-2024 take 1 tablet by mouth once daily ARIPiprazole (Abilify) 15 MG tablet Take 15 mg by mouth Daily 03/27/2024 Active Start: 11-16-2022 End: 09-26-2023 take 1 tablet by mouth once daily ARIPiprazole (ABILIFY) 15 mg tablet take one tablet by mouth once daily 30 tablet 5 03/21/2024 Active Start: 04-09-2022 End: 04-12-2024 ARIPiprazole (Abilify) 20 MG tablet Take 15 mg by mouth in the morning. 04/09/2022 04/12/2024 Discontinued (Discontinued by another clinician) Start: 04-28-2018 take 30 mg by mouth once daily Aripiprazole Active 30 MG PO Daily June 14, 2021 12:00am Start: 04-28-2018 Abilify 30 mg oral tablet See Instructions, Reports taking 15mg daily now as prescribed by her PCP., Refills(s) 0, Other (see comment) Start Date: 04/28/18 Status: Ordered take 2 tablets by [facility] once daily in the morning ARIPiprazole (ABILIFY) [...] 80 mg by mouth in the morning. 01/03/2023 Active Start: 04-28-2018 take 2 tablets by [facility] at bedtime Lipitor 40 mg Tab 80 mg = 2 tab(s), Oral, Bedtime, Refills(s) 0, High cholesterol Start Date: 04/28/18 Status: Ordered Start: 04-28-2018 take 40 mg by mouth once daily at bedtime Atorvastatin Active 40 MG PO Daily at bedtime June 14, 2021 12:00am azithromycin 250 mg oral tablet (8 sources) Macrolide Antimicrobial Start: 04-09-2024 End: 04-14-2024 take 1 tablet by mouth once daily azithromycin (Zithromax Z-Floyd) 250 MG tablet Indications: Paronychia, toe, right Take 1 tablet (250 mg) by mouth Daily for 5 days Use as directed 6 tablet 04/09/2024 04/14/2024 Active azithromycin 250 mg Tab 5-day Dose Pack (Z-Floyd) (1 source) Start: 10-20-2022 End: 10-25-2022 azithromycin 250 mg Tab 5-day Dose Pack (Z-Floyd) = 1 packet(s), Oral, As Directed, as directed on package labeling, X 5 day(s), # 6 tab(s), Refills(s) 0, Pharmacy: [facility] #[id number], 163, cm, 10/20/22 10:48:00 EST, Height/Length Dosing, 78.9, kg, 10/20/22 10:48:00 EST, Weight Dosing Start Date: 10/20/22 Stop Date: 10/25/22 Status: Ordered benztropine mesylate 0.5 mg oral tablet (20 [...] day(s), # 28 cap(s), Refills(s) 0, Pharmacy: [id number], 163, cm, 10/29/22 14:56:00 EDT, Height/Length Dosing, 77.3, kg, 10/29/22 14:56:00 EDT, Weight Dosing Start Date: 10/29/22 Stop Date: 11/26/22 Status: Ordered blood-glucose meter (ONETOUCH ULTRA2 METER) mis (1 source) Start: 09-23-2024 blood-glucose meter (ONETOUCH ULTRA2 METER) [facility] [place] Indications: Diabetes mellitus without complication ([facility]) 1 Unit by miscellaneous route in the morning. 1 each 09/23/2024 Active blood-glucose meter,continuous (DEXCOM G6 SECTION 8 PROPERTY MANAGER) misc (11 sources) Start: 10-24-2022 blood-glucose meter,continuous (DEXCOM G6 SECTION 8 PROPERTY MANAGER) [facility] [place] Indications: Type 2 diabetes mellitus without complication, without long-term current use of insulin ([facility]) 1 unit yearly 1 each 10/24/2022 Active Start: 10-24-2022 blood-glucose meter,continuous (DEXCOM G6 SECTION 8 PROPERTY MANAGER) [facility] Indications: Type 2 diabetes mellitus without complication, without long-term current use of insulin ([facility]) 1 unit yearly 1 each 0 10/24/2022 Active blood-glucose sensor (DEXCOM G6 SENSOR) device (12 sources) Start: 11-01-2023 blood-glucose sensor (DEXCOM G6 SENSOR) device Indications: Type 2 diabetes mellitus without complication, without long-term current use of insulin ([facility]) 1 Unit by miscellaneous route every 10 days. 3 each 5 11/01/2023 Active Start: 03-31-2023 End: 10-30-2023 blood-glucose sensor (DEXCOM G6 SENSOR) device Indications: Type 2 diabetes mellitus without complication, without long-term current use of insulin ([facility]) 1 Unit by miscellaneous route every 10 days. 3 each 5 03/31/2023 10/30/2023 Discontinued (Reorder) Start: 03-31-2023 blood-glucose sensor (DEXCOM G6 SENSOR) device Indications: Type 2 diabetes mellitus without complication, without long-term current use of insulin (CMS-HCC) 1 Unit by miscellaneous route every 10 days. 3 each 03/31/2023 Active blood-glucose transmitter (DEXCOM G6 TRANSMITTER) device (12 sources) Start: 11-01-2023 blood-glucose transmitter (DEXCOM G6 [...] ROUTE EVERY 3 (THREE) MONTHS. 1 each 06/24/2023 Active Budesonide / formoterol (7 sources) Corticosteroid, beta2-Adrenergic Agonist Start: 09-04-2021 Symbicort Inhalation, BID, Refill(s) 0, COPD Start Date: 09/04/21 Status: Ordered Start: 06-14-2021 End: 04-08-2024 budesonide-formoterol (Symbi cely) 160-4.5 MCG/ACT inhaler Daily at bedtime 06/14/2021 04/08/2024 Active Start: 06-14-2021 take 1 puff(s) by in [...] tablet by mouth twice daily calcium carbonate 1500 (600 Ca) MG tablet Indications: Localized osteoporosis, unspecified pathological fracture presence (CMS/HCC) TAKE ONE TABLET BY MOUTH TWICE A DAY 60 tablet 11 12/19/2023 Active take 1 tablet [facility] calcium [facility] 1500 (600 Ca) MG [...] 11 05/27/2024 Active take 1 capsule by [facility] once daily in the morning Cetirizine (ZYRTEC) [...] 5,000 Units by mouth once daily. Active clomiPRAMINE hydrochloride 50 mg oral capsule (20 sources) Tricyclic Antidepressant take 1 capsule by [...] by mouth daily at bedtime. Active Continuous Glucose Sensor (FreeStyle Lilliam 2 Sensor) misc (18 sources) Start: 07-24-2024 Continuous Glucose Sensor (FreeStyle Lilliam 2 Sensor) misc USE DIRECTED AND CHANGE EVERY 14 DAYS 07/24/2024 Active Continuous Glucose Transmitter (Dexcom G6 transmitter) misc (20 sources) Start: 01-27-2024 Continuous Glucose Transmitter (Dexcom G6 transmitter) misc 1 UNIT BY MISCELLANEOUS ROUTE EVERY 3 (THREE) MONTHS. 01/27/2024 Active cyclobenzaprine hydrochloride 10 mg oral tablet (1 source) Muscle Relaxant Start: 11-29-2023 take 1 tablet by mouth at bedtime cyclobenzaprine 10 mg Tab 10 mg = 1 tab(s), Oral, Bedtime, Refills(s) 0 Start Date: 11/29/23 Status: Ordered 24 hr dilTIAZem hydrochloride 120 mg extended release oral capsule (20 sources) Calcium Channel Laz Start: 07-05-2023 take 1 capsule by mouth once daily, then take 1 capsule by mouth every twenty-four hours dilTIAZem CD (Cardizem CD) 120 MG 24 hr capsule Take 120 mg by mouth Daily 03/27/2024 Active Start: 07-05-2023 End: 06-18-2024 take 1 capsule [...] taking this medication. 15 capsule 01/02/2023 Active [id number] 0.3 ml EPINEPHrine 1 mg/ml auto-injector (20 sources) alpha-Adrenergic Agonist, beta-Adrenergic Agonist, Catecholamine Start: [...] Start: 10-25-2021 take 1 capsule by mo [facility] every week ergocalciferol 50,000 intl units Cap 50,000 International_Unit = 1 cap(s), Oral, qWeek, Refills(s) 0, Prophylaxis Start Date: 10/25/21 Status: Ordered Start: 06-14-2021 take 05213 ug by colin every week Ergocalciferol (Vitamin D2) Active 00757 MCG PO every week June 14, 2021 [...] day(s), # 90 tab(s), Refills(s) 0, Pharmacy: [facility], 163, cm, 10/29/22 14:56:00 EDT, Height/Length Dosing, 77.3, kg, 10/29/22 14:56:00 EDT, Weight Dosing Start Date: 10/29/22 Stop Date: 01/27/23 Status: Ordered flash glucose scanning reader (FREESTYLE LILLIAM 14 DAY READER) misc (20 sources) Start: 08-21-2024 flash glucose scanning reader (FREESTYLE LILLIAM 14 DAY READER) misc Indications: Diabetes mellitus without complication ([facility]) 1 Unit by miscellaneous route every 14 (fourteen) days. 2 each 5 08/21/2024 Active Start: 02-28-2024 End: 08-21-2024 flash glucose scanning reade r (FREESTYLE LILLIAM 14 DAY READER) misc 1 Unit by miscellaneous route in the morning. 1 each 02/28/2024 08/21/2024 Discontinued (Reorder) Start: 02-28-2024 flash glucose scanning reader (FREESTYLE LILLIAM 14 DAY READER) misc 1 Unit by miscellaneous route in the morning. 1 each 02/28/2024 Active flash glucose sensor (FREESTYLE LILLIAM 14 DAY SENSOR) kit (20 sources) Start: 02-27-2024 flash glucose sensor (FREESTYLE LILLIAM 14 DAY SENSOR) kit 1 each by miscellaneous route every 14 (fourteen) days. 6 kit 1 02/27/2024 Active 1.5 ml fremanezumab-vfrm 150 mg/ml auto-injector (20 sources) Start: 12-24-2023 End: 12-23-2024 fremanezumab (Ajovy) 225 MG/ 1.5ML auto-injector Indications: Intractable chronic migraine without aura [...] 2021 12:00am glycopyrrolate 2 mg oral tablet (20 sources) Start: 03-09-2024 End: 04-12-2024 take 1 tablet by mouth at bedtime glycopyrrolate (Robinul) 2 MG tablet TAKE 1 TABLET (2 MG) BY MOUTH AT BEDTIME 03/27/2024 Active Start: 02-26-2024 End: 04-12-2024 take 2 tablets by mouth at bedtime glycopyrrolate (Robinul) 1 MG tablet Take 2 mg by mouth at bedtime 02/26/2024 04/12/2024 Discontinued (Discontinued by another clinician) imipramine hydrochloride 25 mg oral tablet (20 sources) Tricyclic Antidepressant Start: 05-18-2024 take 1 tablet by mouth once daily imipramine (TOFRANIL) 25 mg tablet Indications: Fibromyalgia Take 1 tablet (25 mg total) by mouth nightly. 30 tablet 5 05/18/2024 Active Injovy (3 sources) Start: 12-07-2021 Injovy Active 1 syringe IM every month December 07, 2021 12:00am isopropyl alcohol 0.7 ml/ml medicated pad (20 sources) Start: 09-21-2024 alcohol swabs (ALCOHOL PREP PADS) pads, medicated Indications: Type 2 diabetes mellitus with hyperglycemia, without long-term current use of insulin ([facility]) Apply 1 Pad topically every 14 (fourteen) days. Clean area prior to placing sensor 40 each 09/21/2024 Active Start: 05-06-2024 End: 09-19-2024 alcohol swabs (ALCOHOL PREP PADS) pads, medicated Indications: Type 2 diabetes mellitus with hyperglycemia, without long-term current use of insulin ([facility]) Apply 1 Pad topically every 14 (fourteen) days. Clean area prior to placing sensor 40 each 05/06/2024 09/19/2024 Discontinued (Reorder) Start: 03-10-2024 Alcohol Swabs (Global Alcohol Prep Ease) 70 % pads APPLY 1 PAD TOPICALLY EVERY 14 (FOURTEEN) DAYS. 03/10/2024 Active ammonium lactate 120 mg/ml topical lotion (20 sources) Start: 10-22-2022 End: 06-27-2024 ammonium lactate (LAC-HYDRIN) 12 % lotion Apply topically 2 (two) times a day. 400 g 10/22/2022 Active lemborexant 5 mg oral tablet (20 sources) Start: 05-18-2024 End: 07-27-2024 lemborexant 5 mg tablet Indications: Fibromyalgia One tab at bed time 30 tablet 5 07/27/2024 Active lidocaine 0.05 mg/mg topical ointment (20 sources) Antiarrhythmic, Amide Local Anesthetic Start: 09-16-2024 lidocaine (Xylocaine ) 5 % ointment Start: 09-08-2024 End: 10-08-2024 Lidocaine, Anorectal, 5 % cr eam Indications: PHN (postherpetic neuralgia) (CMS/HCC) Apply 1 g topically Daily as needed (pain) 60 g 11 09/08/2024 10/08/2024 Active Start: 08-04-2024 Lidocaine, Ano rectal, 5 % cream 08/04/2024 Active Start: 08-04-2024 End: 08-10-2024 Lidocaine 5 % cream Indicati ons: PHN (postherpetic neuralgia) (CMS/HCC) Apply a dime size amount to area BID Prn 60 g 11 08/04/2024 08/10/2024 Discontinued (Therapy completed) Start: 01-31-2024 apply 1 dose transde rmal route once daily, then apply 1 dose [...] (20 sources) Opioid Agonist Start: 12-20-2022 End: 09-15-2024 take 1 capsule by mouth every twenty-four hours loperamide (Imodium) 2 MG capsule TAKE 2 CAPSULES BY MOUTH AFTER 1ST LOOSE STOOL AND 1 CAPSULE AFTER EACH NEXT BOWEL MOVEMENT; DO NOT EXCEED 16MG (8 CAPSULES) IN 24 HOURS 12/20/2022 Active Start: 10-29-2022 End: 11-28-2022 Imodium 2 mg oral capsule 2 mg = 1 cap(s), Oral, q6hr, PRN as needed for loose stool, not to exceed 8 capsules, or 16 mg, in 24 hours, X 30 day(s), # 120 cap(s), Refills(s) 0, Pharmacy: [facility] #[id number], 163, cm, 10/29/22 14:56:00 EDT, [...] stool, # 120 tab(s), Refills(s) 6, Pharmacy: [facility], 162, cm, 03/30/20 10:05:00 EDT, Height/Length Dosing, 74.2, kg, 03/30/20 10:05:00 EDT, Weight Dosing Start Date: 07/12/20 Status: Ordered meclizine hydrochloride 25 mg oral tablet (20 sources) Antiemetic Start: 07-02-2022 take 1 tablet by mouth three times daily as needed meclizine (Antivert) 25 MG tablet Take 25 mg by mouth 3 (three) times a day as needed. 07/02/2022 Active Start: 10-22-2018 take 25 mg by mouth four times daily as needed for dizziness meclizine 25 mg, Oral, QID, PRN Dizziness Start Date: 10/22/18 Status: Ordered take 1 tablet by colin th every twenty-four hours Meclizine HCl 25 MG 1 tablet as needed Orally Once a day Active metFORMIN hydrochloride 500 mg oral tablet (20 sources) Biguanide Start: 05-06-2023 End: 10-30-2023 take 1 tablet by mouth at mealtime metFORMIN (Glucophage) 500 MG tablet Take 500 mg by mouth in the morning. Take with meals. 05/06/2023 Active Start: 09-20-2022 take 1 tablet [...] THE EVENING 30 tablet 11 03/21/2024 Active [id number]-kfyb-ZU-c alcium &mins (THERAGRAN-M) 9 mg iron-400 mcg tablet (20 sources) qsufnmam-eeox-MQ -c alcium &mins (THERAGRAN-M) 9 mg iron-400 mcg tablet Take 1 tablet by mouth in the morning. Active mkvcnbro-rmxg-LE -calcium &mins (THERAGRAN-M) 9 mg iron-400 mcg tablet Take 1 tablet by mouth in the morning. 0 Active Naltrexone (3 sources) Opioid Antagonist Start: 03-05-2024 take 1 tablet by mouth once daily naltrexone 1.5 mg oral capsule See Instructions, take one tablet daily, # 30 tab(s), Refills(s) 0, Pharmacy: [facility], 163, cm, 03/05/24 15:26:00 EDT, Height/Length Dosing, 72.8, kg, 03/05/24 15:26:00 EDT, Weight Dosing Start Date: 03/05/24 Status: Ordered naratriptan 2.5 mg oral tablet (20 sources) Serotonin-1b and Serotonin-1d Receptor Agonist Start: 10-12-2019 naratriptan 2.5 mg Tab 2.5 mg = 1 tab(s), Oral, As Directed, PRN Migraine headache, # 9 tab(s), Refills(s) 0 Start Date: 10/12/19 Status: Ordered nebulizer accessories misc (20 sources) Start: 01-25-2023 nebulizer accessories misc Indications: Chronic obstructive pulmonary disease, unspecified COPD type ([facility]) 1 Tube by inhal. via small vol.nebulizer route every 6 (six) months. 1 each 1 01/25/2023 Active nebulizers misc (20 sources) Start: 01-25-2023 nebulizers misc Indications: Chronic obstructive pulmonary disease, unspecified COPD type ([facility]) 1 Unit by miscellaneous route every 6 [...] 0 Start Date: 07/10/21 Status: Ordered nystatin 081632 unt/ml oral suspension (20 sources) Polyene Antifungal [...] our times daily at bedtime nystatin (Mycostatin) 468827 UNIT/ML suspension TAKE 5ML BY MOUTH FOUR TIMES A DAY (MORNING, NOON, EVENING, BEDTIME) FOR 5 DAYS. 03/24/2024 Active Start: 06-27-2023 nystatin (Myco statin) cream APPLY TO AFFECTED AREA VIA TOPICAL ROUTE TWICE A DAY 06/27/2023 Active Start: 06-18-2023 nystatin (Myco statin) 324106 UNIT/ML suspension TAKE 5ML FOUR TIMES A DAY IN AM, NOON, EVENING, AND AT BEDTIME FOR 7 DAYS 0 06/18/2023 Active omeprazole 40 mg delayed release oral capsule (20 sources) Proton Pump Inhibitor Start: 11-06-2023 take 40 mg by mouth once daily omeprazole 40 mg, Oral, Daily, Refills(s) 0 Start Date: 11/06/23 Status: Ordered Start: 06-22-2015 End: 09-19-2024 take 1 capsule by mouth once daily omeprazole (PriLOSEC) [address] capsule Take 1 capsule every day by oral route. 08/31/2022 Active take 1 capsule by [facility] once daily PriLOSEC 40 MG 1 capsule Orally Once a day Active ondansetron 4 mg disintegrating oral tablet (20 sources) Serotonin-3 Receptor Antagonist Start: 08-26-2024 ondansetron 4 mg, SubLingual, PRN as needed for nausea/vomiting, Refills(s) 0 Start Date: 08/26/24 Status: Ordered Start: 04-27-2024 End: 05-04-2024 take 1 tablet by mouth every eight hours for nausea ondansetron (Zofran) 4 MG tablet Indications: Nausea and vomiting, unspecified vomiting type Take 1 tablet (4 mg) by mouth every 8 (eight) hours if needed for nausea or vomiting for up to 7 days 20 tablet 04/27/2024 05/04/2024 Active Start: 12-16-2023 End: 09-15-2024 take 1 tablet by mouth every eight hours as needed for nausea and vomiting ondansetron ODT (ZOFRAN ODT) 4 mg disintegrating tablet Dissolve 1 tablet (4 mg total) on tongue every 8 (eight) hours as needed for nausea or vomiting. 10 tablet 1 09/15/2024 Active Start: 06-06-2023 End: 09-08-2023 take 1 [...] citrate 100 mg extended release oral tablet (20 sources) Muscle Relaxant Start: 05-18-2024 End: 07-27-2024 take 1 tablet by mouth in the morning, then take 1 tablet by mouth every twelve hours in the evening orphenadrine (NORFLEX) 100 mg 12 hr tablet Indications: Fibromyalgia Take 1 tablet (100 mg total) by mouth in the morning. One tab at 8 PM. 30 tablet 5 07/27/2024 Active Start: 06-14-2021 End: 12-07-2021 take 100 mg by mouth twice daily Orphenadrine Citrate Discontinued 100 MG PO Twice daily June 14, 2021 12:00am December 07, 2021 10:33am Oxygen - for Home (20 sources) Start: 10-25-2021 Oxygen - for H ome 3 L/min, Nasal Cannula, Daily, Refill(s) 0, [...] Date: 09/14/22 Stop Date: 12/13/22 Status: Ordered polyethylene glycol 3350 101648 mg / potassium chloride 1480 mg / sodium bicarbonate 5720 mg / sodium chloride 13914 mg powder for oral solution (11 sources) [...] PER PHYSICIAN INSTRUCTIONS. PRIOR TO COLONOSCOPY., [facility], 163, cm, 11/07/21 12:16:00 EDT, Height/Length [...] mg by mouth daily at bedtime. Active Prilosec 40 mg Cap-EC (3 sources) [...] vomiting, # 90 tab(s), Refills(s) 0, Pharmacy: [facility], 162, cm, 05/15/22 13:20:00 [...] disintegrat ing oral tablet (20 sources) Start: 07-14-2024 End: 08-10-2024 Nurtec 75 MG tablet dispersible DISSOLVE 1 TABLET ON THE TONGUE AT ONSET OF MIGRAINE NEEDED MUST LAST 30 DAYS 07/14/2024 08/10/2024 Discontinued (Reorder) Start: 11-06-2023 End: 06-07-2024 Rimegepant Sulfate (Nurtec) 75 MG tablet dispersible Indications: Intractable chronic migraine without aura and without status migrainosus (CMS/HCC) Place 75 mg under the tongue if needed (at the onset of migraine) 8 tablet 11 05/08/2024 06/07/2024 Active Start: 06-14-2021 End: 09-16-2024 take 1 tablet by mouth once daily as needed Rimegepant Sulfate (Nurtec) 75 MG tablet dispersible Indications: Attention deficit hyperactivity disorder (ADHD), predominantly inattentive type (CMS/HCC) Take 75 mg by mouth Daily as needed (at onset of migraine) 30 tablet 11 08/10/2024 09/16/2024 Active simvastatin 40 mg oral tablet (2 sources) [...] Start: 01-28-20 take 1 tablet by mouth once daily solifenacin (VESIcare) 10 MG tablet Take 10 mg by mouth Daily 03/27/2024 Active Start: 09-17-2023 take 1 tablet by colin th once daily Vesicare 10 mg Tab 10 mg = 1 tab(s), Oral, Daily, # 90 tab(s), Refills(s) 3, Pharmacy: [facility], 163, cm, 09/17/23 8:25:00 EST, Height/Length Dosing, 81, kg, 09/17/23 8:25:00 EST, Weight Dosing Start Date: 09/17/23 Status: Ordered Start: 09-04-2021 take 1 tablet by colin th once daily Vesicare 10 mg Tab 10 mg = 1 tab(s), Oral, Daily, # 30 tab(s), Refills(s) 5, [facility]: [facility], 163, cm, 04/09/22 14:41:00 EDT, Height/Length [...] 100 mg oral tablet (20 sources) Start: 04-30-2024 take 1 tablet by mouth in the morning, then take 1 tablet by mouth at bedtime thiamine mononitrate, vit B1, (VITAMIN B-1, MONONITRATE,) 100 mg tablet Take 1 tablet (100 mg total) by mouth in the morning and 1 tablet (100 mg total) before bedtime. 04/30/2024 Active Start: 06-14-2021 End: 04-19-2024 take 1 tablet by mouth in the morning Thiamine Mononitrate 100 MG tablet Indications: Intractable chronic migraine without aura and without status migrainosus (CMS/HCC) , Benign paroxysmal positional vertigo due to bilateral vestibular disorder , Restless leg syndrome , Neuropathy , Lumbar radiculopathy TAKE 1 TABLET BY MOUTH IN THE MORNING AND IN THE EVENING 60 tablet 11 03/20/2024 04/19/2024 Active tiZANidine 4 mg oral tablet (15 sources) Central alpha-2 Adrenergic Agonist Start: 08-05-2023 [...] U Active zonisamide 25 mg oral capsule (20 sources) Anti-epilepti c Agent Start: 05-11-2024 End: 05-11-2025 take 1 capsule by mouth once daily zonisamide (Zonegran) 25 MG capsule Indications: Intractable chronic migraine without aura and without status migrainosus (CMS/HCC) , Diabetic peripheral neuropathy (CMS/HCC) Take 1 capsule (25 mg) by mouth Daily 30 capsule 11 05/11/2024 05/11/2025 Active Completed/Discontinued Medications Medication Drug Class(es) Dates Sig (Normalized) Sig (Original) baclofen 5 mg oral tablet (10 sources) gamma-Aminobutyric Acid-ergic Agonist Start: 12-02-2023 End: 04-14-2024 baclofen (Lioresal) 5 MG tablet 12/02/2023 04/14/2024 Discontinued (Med list cleanup) benzonatate 100 mg oral capsule (20 sources) Non-narcotic Antitussive Start: 07-10-2023 End: 04-21-2024 take 1 capsule by mouth three times daily as needed for cough benzonatate (Tessalon) 100 MG capsule Take 100 mg by mouth 3 (three) times a day as needed for cough 07/10/2023 04/21/2024 Discontinued (Med list cleanup) biotin 10 mg oral capsule (20 sources) Start: 04-27-2024 take 1 tablet by mouth at bedtime biotin 10 mg tablet Take 1 tablet by mouth. TAKE ONE TABLET BY MOUTH IN THE MORNING AND BEFORE BEDTIME 04/27/2024 Active Start: 04-27-2024 End: 04-22-2025 take 1 capsule by mouth in the morning biotin 10 MG capsule Indications: Intractable chronic migraine without aura and without status migrainosus (CMS/HCC) , Diabetic peripheral neuropathy (CMS/HCC) Take 1 capsule (10 mg) by mouth in the morning and 1 capsule (10 mg) before bedtime. 60 capsule 11 04/27/2024 08/10/2024 Discontinued (Therapy completed) celecoxib 100 mg oral capsule (11 sources) Nonsteroidal Anti-inflammatory Drug Start: 06-10-2024 End: 09-15-2024 take 1 capsule by mouth in the morning, then take 1 capsule by mouth at bedtime celecoxib (CeleBREX) 100 mg capsule Take 1 capsule (100 mg total) by mouth in the morning and 1 capsule (100 mg total) before bedtime. 60 capsule 2 06/10/2024 09/15/2024 Discontinued (Therapy completed) Cellulose (10 sources) Start: 03-06-2024 End: 04-14-2024 Cellulose powder 03/06/2024 04/14/2024 Discontinued (Med list cleanup) Start: 03-06-2024 Cellulose powd er 03/06/2024 Active chlorzoxazone 500 mg oral tablet (10 sources) Muscle Relaxant Start: 01-17-2024 End: 04-14-2024 take 1 tablet by mouth four times daily as needed for muscle spasms chlorzoxazone (Parafon Forte) 500 MG tablet Take 500 mg by mouth 4 (four) times a day as needed for muscle spasms 01/17/2024 04/14/2024 Discontinued (Med list cleanup) cholestyramine resin 4000 mg powder for oral suspension (17 sources) Bile Acid Sequestrant Start: 06-06-2023 End: 04-14-2024 cholestyramine (Questran) 4 GM/DOSE powder TAKE 9 G OF BULK POWDER (4 G TOTAL) BY MOUTH IN THE MORNING AND 9 G OF BULK POWDER (4 G TOTAL) IN THE EVENING. TAKE WITH MEALS. 06/06/2023 04/14/2024 Discontinued (Med list cleanup) Start: 06-06-2023 cholestyramine (QUESTRAN) 4 gram powder Indications: Mixed hyperlipidemia Take 9 g of bulk powder (4 g total) by mouth in the morning and 9 g of bulk powder (4 g total) in the evening. Take with meals. 378 g 1 06/06/2023 Active Continuous Blood Gluc Receiv er (Dexcom G6 overage shortage and damage clerk) device (11 sources) Start: 10-24-2022 End: 04-12-2024 Continuous Blood Gluc Receiv er (Dexcom G6 overage shortage and damage clerk) device 1 UNIT YEARLY 10/24/2022 04/12/2024 Discontinued (Discontinued by another clinician) Start: 10-24-2022 Continuous Blo od Gluc Pbx Repairer (Dexcom G6 overage shortage and damage clerk) device 1 UNIT YEARLY 10/24/2022 Active Start: 10-24-2022 Continuous Blo od Gluc Pbx Repairer (Dexcom G6 overage shortage and damage clerk) device 1 UNIT YEARLY 0 10/24/2022 Active Continuous Blood Gluc Sensor (Dexcom G6 Sensor) misc (11 sources) Start: 01-21-2023 End: 04-12-2024 Continuous Blood Gluc Sensor (Dexcom G6 Sensor) misc USE 1 UNIT DIRECTED AND CHANGE EVERY 10 DAYS 01/21/2023 04/12/2024 Discontinued (Discontinued by another clinician) Start: 01-21-2023 Continuous Blo od Gluc Sensor (Dexcom G6 Sensor) misc USE 1 UNIT DIRECTED AND CHANGE EVERY 10 DAYS 01/21/2023 Active Start: 01-21-2023 Continuous Blo od Gluc Sensor (Dexcom G6 Sensor) misc USE 1 UNIT DIRECTED AND CHANGE EVERY 10 DAYS 0 01/21/2023 Active desoximetasone 0.5 mg/ml topical cream (3 sources) Corticosteroid Start: 06-14-2021 End: 12-07-2021 Desoximetasone Discontinued 0.05 APPLIC TOPICAL Twice daily June 14, 2021 12:00am December 07, 2021 10:26am diazePAM 5 mg oral tablet (12 sources) Benzodiazepine Start: 01-22-2024 End: 04-12-2024 take 1 tablet by mouth every hour diazePAM (Valium) 5 MG tablet TAKE ONE TABLET BY MOUTH ONE HOUR PRIOR TO PROCEDURE -NO DRIVING 01/22/2024 04/12/2024 Discontinued (Discontinued by another clinician) Start: 07-08-2023 End: 04-12-2024 take 1 tablet by mouth every two hours diazePAM (Valium) 2 MG tablet TAKE 1 TABLET BY MOUTH 2 HOURS PRIOR TO PROCEDURE. NO DRIVING. 07/08/2023 04/12/2024 Discontinued (Discontinued by another clinician) diclofenac sodium 0.01 mg/mg topical gel (3 sources) Nonsteroidal Anti-inflammatory Drug Start: 06-14-2021 End: 12-07-2021 Diclofenac Sodium Discontinued 1 EACH TOPICAL Twice daily June 14, 2021 12:00am December 07, 2021 10:27am dicyclomine hydrochloride 20 mg oral tablet (20 sources) Anticholinergic Start: 12-02-2023 End: 08-10-2024 dicyclomine (Bentyl) 20 MG tablet TAKE 1 TABLET BY MOUTH EVERY 6 TO 8 HOURS NEEDED FOR CRAMPS 12/02/2023 08/10/2024 Discontinued (Therapy completed) Start: 06-14-2021 take 20 mg by mouth four times daily Dicyclomine Active 20 MG PO Four times daily June 14, 2021 12:00am take 1 tablet by colin th every eight hours Dicyclomine HCl 20 MG 1 tablet Orally Three times a day Active 1 ml erenumab-aooe 140 mg/ml auto-injector (5 sources) Start: 06-14-2021 End: 12-07-2021 inject 140 mg by subcutaneous injection every month Erenumab-Aooe (Aimovig Autoinjector) 140 mg/mL auto-injector Discontinued 140 MG SUBCUT every month June 14, 2021 12:00am December 07, 2021 10:28am takes on the every month ferrous sulfate (10 sources) End: 04-14-2024 take 1 tablet by mouth in the morning Ferrous Sulfate (IRON PO) Take 1 tablet by mouth in the morning. 04/14/2024 Discontinued (Med list cleanup) take 1 tablet by mouth in the mo rning Ferrous Sulfate (IRON PO) Take 1 tablet by mouth in the morning. Active hydrOXYzine hydrochloride 25 mg oral tablet (20 sources) Antihistamine Start: 12-13-2023 End: 04-14-2024 take 1 tablet by mouth twice daily as needed for anxiety hydrOXYzine HCl (Atarax) 25 MG tablet TAKE 1 TABLET (25 MG TOTAL) BY MOUTH 2 (TWO) TIMES A DAY NEEDED FOR ANXIETY. 12/13/2023 04/14/2024 Discontinued (Med list cleanup) Start: 09-18-2023 End: 10-18-2023 take 1 tablet by mouth once hydrOXYzine HCl (Atarax) 1 0 MG tablet Indications: Allergic rhinitis due to [...] as needed Intramuscular every 6 hrs Active nabumetone 750 mg oral tablet (20 sources) Nonsteroidal Anti-inflammatory Drug Start: 11-28-2023 End: 04-14-2024 take 1 tablet by mouth twice daily as needed for pain nabumetone (Relafen) 750 MG tablet TAKE 1 TABLET (750 MG TOTAL) BY MOUTH 2 (TWO) TIMES A DAY NEEDED FOR PAIN. 11/28/2023 04/14/2024 Discontinued (Med list cleanup) Start: 08-23-2023 take 1 tablet by colin th twice daily as needed for pain nabumetone (RELAFEN) 750 mg tablet Indications: Chronic bilateral low back pain with sciatica, sciatica laterality unspecified Take 1 tablet (750 mg total) by mouth 2 (two) times a day as needed for pain. 60 tablet 5 08/23/2023 Active nystatin [id number] unt/ml / triamcinolone acetonide 1 mg/ml topical cream (11 sources) Polyene Antifungal, Corticosteroid Start: 05-08-2022 End: 04-12-2024 nystatin-triamcinolone (Mycolog II) cream APPLY 1 APPLICATION TOPICALLY IN THE MORNING AND 1 APPLICATION AT NOON AND 1 APPLICATION IN THE EVENING AND 1 APPLICATION BEFORE BEDTIME. 05/08/2022 04/12/2024 Discontinued (Discontinued by another clinician) pilocarpine hydrochloride 5 mg oral tablet (20 sources) Cholinergic Receptor Agonist Start: 03-27-2024 End: 04-21-2024 take 1 tablet by mouth in the morning, then take 1 tablet by mouth in the evening, then take 1 tablet by mouth at bedtime pilocarpine (Salagen) 5 MG tablet Take 5 mg by mouth in the morning and 5 mg in the evening and 5 mg before bedtime. 03/27/2024 04/21/2024 Discontinued (Discontinued by another clinician) Start: 09-20-2022 take 1 tablet by colin th three times daily pilocarpine 5 mg Tab TAKE 1 TABLET BY MOUTH THREE TIMES DAILY., Unable to State Start Date: 09/20/22 Status: Ordered prednisoLONE acetate 10 mg/ml ophthalmic suspension (10 sources) Corticosteroid Start: 10-03-2023 End: 04-14-2024 prednisoLONE acetate (Pred-Forte) 1 % ophthalmic suspension INSTILL 1 DROP INTO TO RIGHT EYE FOUR TIMES A DAY FOR 7 DAYS, NEXT THREE TIMES A DAY FOR 7 DAYS, AND THEN TWICE A DAY FOR 7 DAYS 10/03/2023 04/14/2024 Discontinued (Med list cleanup) predniSONE 10 mg oral tablet (7 sources) Start: 08-13-2023 End: 04-12-2024 predniSONE (Deltasone) 10 MG tablet TAKE THREE TABLETS BY MOUTH DAILY FOR 3 DAYS, THEN TWO TABLETS FOR 3 DAYS, THEN ONE TABLET BY MOUTH FOR 3 DAYS 08/13/2023 04/12/2024 Discontinued (Discontinued by another clinician) Start: 09-04-2022 predniSONE 10 MG 4 tabs x 3 days, 2 tabs x 3 days, 1 tab x 3 days, then stop. Orally Once a day for 9 days Aug, Active QUEtiapine 50 mg oral tablet (3 sources) [...] Active Problems Problem Classification Problem Date Documented Date Episodic/Chronic Acquired foot deformities (20 sources) Hammer toe; Translations: [Other hammer toe(s) (acquired), right foot] Onset: 3 11-12-2022 Chronic Acquired foot deformities (2 sources) Acquired deformity of toe of right foot; Translations: [Acquired deformities of toe(s), unspecified, right foot] 06-18-2024 Episodic Acute myocardial infarction (19 sources) Myocardial infarction; Translations: [Acute myocardial infarction, [...] disorder, unspecified type] Onset: 2 02-14-2015 Chronic Attention-deficit, conduct, and disruptive behavior disorders (6 sources) Attention deficit hyperactivity disorder, predominantly inattentive type; Translations: [Attention-deficit hyperactivity disorder, predominantly inattentive type] 08-10-2024 Chronic Cardiac dysrhythmias (2 sources) Supraventricular tachycardia; Translations: [Supraventricular tachycardia] Onset: 4 [...] mitral (valve) prolapse] Onset: 4 06-16-2015 Chronic Joint disorders and dislocations; trauma-related (1 source) Unspecified internal derangement of left knee; Translations: [Unspecified internal derangement of left knee] Onset: 4 Chronic Mood disorders (20 sources) Bipolar disorder; Translations: [Depressive disorder] Onset: 1 06-16-2015 Chronic Nonspecific chest pain (1 source) Chest pain, [...] ankle] Onset: 3 06-06-2023 Chronic Other aftercare (3 sources) 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; Translations: [OTH [facility] CURRENT DRUG THERAPY] Onset: 3 Episodic Other [...] Episodic Other connective tissue disease (6 sources) Capsulitis of metatarsophalangeal joint of right foot; Translations: [Other enthesopathy of right foot and ankle] 04-05-2024 Episodic Other connective tissue disease (2 sources) Muscle weakness (generalized); Translations: [Muscle weakness (generalized)] Onset: 4 Episodic Other connective tissue disease (2 sources) Repeated falls; Translations: [Repeated falls] Onset: 4 Episodic Other connective tissue disease (2 sources) Pain in left arm; Translations: [Pain in left arm] Onset: 4 Episodic Other diseases of bladder and urethra [...] 3 07-08-2023 Chronic Other nervous system disorders (20 sources) Lesion of left ulnar nerve; Translations: [Lesion of ulnar nerve, left upper limb] Onset: 4 04-30-2024 Chronic Other nervous system disorders (20 sources) Carpal tunnel syndrome; Translations: [Carpal tunnel syndrome, unspecified upper limb] Onset: 4 04-30-2024 Chronic Other nervous system disorders (20 sources) Lesion of ulnar nerve, bilateral upper limbs; Translations: [Lesion of ulnar nerve] Onset: 3 07-08-2023 Chronic Other nervous system disorders (7 sources) Lesion of ulnar nerve, left upper limb; Translations: [Lesion of ulnar nerve] Onset: 4 04-10-2024 Chronic Other nervous system disorders (1 source) Lesion of ulnar nerve, right upper limb; Translations: [Lesion of ulnar nerve, right upper limb] Onset: 4 Chronic Other nervous system disorders (2 sources) Carpal tunnel syndrome of left wrist; Translations: [Carpal tunnel syndrome, left upper limb] 04-13-2024 Chronic Other nervous system disorders (2 sources) Carpal tunnel syndrome, left upper limb; Translations: [Carpal tunnel syndrome, left upper limb] Onset: 5 Chronic Other nervous system disorders (4 sources) Impaired cognition; Translations: [Other symptoms and signs involving cognitive functions and awareness] 09-16-2024 Episodic Other non-traumatic joint disorders (3 sources) Pain in elbow; Translations: [Pain in right [...] codes; unclassified (20 sources) Obstructive sleep apnea syndrome; Translations: [Obstructive sleep apnea (adult) (pediatric)] 09-11-2018 Chronic Residual codes; unclassified (20 sources) Sleep apnea; Translations: [Sleep apnea, unspecified] Onset: 3 06-16-2015 Chronic Comment on above: does not use cpap an y longer pt uses CPAP Residual codes; unclassified (2 sources) Obstructive sleep apnea (adult) (pediatric); Translations: [Obstructive sleep apnea (adult) (pediatric)] Onset: 4 Chronic Residual codes; unclassified (20 sources) Chronic pain [...] source) Pain; Translations: [Pain, unspecified] 04-19-2021 Episodic Skin and subcutaneous tissue infections (12 sources) Paronychia of toe of right foot; Translations: [Cellulitis of right toe] 04-05-2024 Episodic Spondylosis; intervertebral disc disorders; other back [...] PAIN, UNSPECIFIED] Onset: 2 Unclassified (1 source) Low back pain, unspecified; Translations: [Low back pain, unspecified] Onset: 0 Unclassified (1 source) thrush Onset: 4 Unclassified (1 source) Pre-op Exam [...] joint, unspecified side] Onset: 3 04-28-2018 Episodic Esophageal disorders (20 sources) Dilatation of esophagus; Translations: [Dilatation of esophagus] Onset: 4 03-30-2024 Episodic Fluid and electrolyte disorders (20 sources) [...] Translations: [Unspecified hemorrhoids] Onset: 3 01-29-2023 Episodic Immunizations and screening for infectious disease (20 sources) Rheumatoid factor positive; Translations: [Other specified abnormal immunological findings in serum] Onset: 4 05-18-2024 Episodic Joint disorders and dislocations; trauma-related (1 source) Other tear of medial meniscus, current injury, right knee, subsequent encounter; Translations: [OTH TEAR MED MENSC CURR RT KNEE SUB] Onset: 2 Episodic Joint disorders and dislocations; trauma-related (2 sources) Acute meniscal tear, medial; Translations: [Complex tear of medial meniscus, current injury, left knee, initial encounter] 04-21-2024 Episodic Lymphadenitis (2 sources) Generalized enlarged lymph nodes; Translations: [Generalized enlarged lymph nodes] Onset: 4 Episodic Mood disorders (20 sources) Mood disorders Onset: 3 Resolved: 4 06-20-2023 Mycoses (1 source) Candidal stomatitis; Translations: [Candidal stomatitis] Onset: 4 Episodic Nausea and vomiting (20 sources) Vomiting; [...] 4 07-01-2023 Episodic Other connective tissue disease (20 sources) Enthesopathy of elbow region; Translations: [Other enthesopathies, not elsewhere classified] Onset: 4 04-30-2024 Episodic Other connective tissue disease (4 sources) Pain of toe of left foot; Translations: [Pain in left toe(s)] 04-05-2024 Episodic Other connective tissue disease (4 sources) Pain of toe of right foot; Translations: [Pain in right toe(s)] 04-05-2024 Episodic Other diseases of bladder and urethra [...] 4 04-12-2020 Episodic Other non-traumatic joint disorders (20 sources) Pain in left knee; Translations: [Pain in joint, lower leg] Onset: 4 05-20-2024 Episodic Other non-traumatic joint disorders (3 sources) Pain [...] in right elbow] Onset: 4 Episodic Other non-traumatic joint disorders (4 sources) Pain of left wrist; Translations: [Pain in left wrist] 04-10-2024 Episodic Other nutritional; endocrine; and metabolic disorders [...] Test Name Value Interpretation Reference Range Facility 36on 09-25-2024 36 Called derik no answer unable to leave message [facility] 36 Derik from [facility] radiolo gy is wondering if there is anything different he needs to do for the CT for the Thiago knee surgery or if it is the same protocol. Phone number [phone] [facility] Follow-Upon 09-22-2024 Follow-Up [id number] Violet Herrera 1970 F Date Provider Department Center 09/22/2024 [facility] MP ORTHO MPORTHO No family history on file Level of Service:00586 [place] POSTOP FOLLOW UP VISIT RELATED TO ORIGINAL PX (GC) Reason for Visit and Comments: Follow-up [[id number]] [facility] COMPREHENSIVE METABOLIC PANE Bulmaro 09-15-2024 Albumin [Mass/Vol] 4.2 g/dL Normal 3.2-5.3 [facility] Comment on above: Performed By: #### C CYNTHIA 81220-3, HA1C #### [facility] ([id number]) [address], [address] [place] [address] ALP [Catalytic activity/Vol] 96 U/L Normal 39-130 [facility] Comment on above: Performed By: #### Veronica MARIE 01972-8, HA1C #### [facility] ([id number]) [address], [address] [place] [address] ALT [Catalytic activity/Vol] 15 U/L Normal 0-31 [facility] Comment on above: Performed By: #### Veronica MARIE 40184-4, HA1C #### [facility] ([id number]) [address], [address] [place] [address] Anion gap [Moles/Vol] 11 mmol/L Normal 5-15 [facility] Comment on above: Performed By: #### C CYNTHIA, 76852-3, HA1C #### [facility] ([id number]) [address], [address] [place] [address] AST [Catalytic activity/Vol] 22 U/L Normal 0-41 [facility] Comment on above: Performed By: #### Veronica MARIE, 08829-7, HA1C #### [facility] ([id number]) [address], [address] [place] [address] Bilirubin [Mass/Vol] 0.5 mg/dL Normal 0.3-1.2 [facility] Comment on above: Performed By: #### Veronica MARIE 25842-2, HA1C #### [facility] ([id number]) [address], [address] [place] [address] Calcium [Mass/Vol] 10.0 mg/dL Normal 8.5-10.5 [facility] Comment on above: Performed By: #### Veronica MARIE, 47255-5, HA1C #### [facility] ([id number]) [address], [address] [place] [address] Chloride [Moles/Vol] 101 mmol/L Normal 98-109 [facility] Comment on above: Performed By: #### Veronica MARIE, 94016-2, HA1C #### [facility] ([id number]) [address], [address] [place] [address] CO2 [Moles/Vol] 29 mmol/L Normal 22-32 [facility] Comment on above: Performed By: #### Veronica MARIE, 80719-3, HA1C #### [facility] ([id number]) [address], [address] [place] [address] Creatinine [Mass/Vol] 0.95 mg/dL Normal 0.40-1.00 [facility] Comment on above: Result Comment: METH OD TRACEABLE TO IDMS STANDARD Performed By: #### Joni Martin MP31-1, HA1C #### [facility] ([id number]) [address], [address] [place] [address] GFR/1.73 sq M.predicted among non-blacks MDRD (S/P/Bld) [Vol rate/Area] 71 mL/min/{1.73_m2} Normal >59 [facility] Comment on above: Result Comment: Reported eGFR is based on the CKD-EPI 2020 equation that does not use a race coefficient. Performed By: #### Veronica MARIE, 07243-5, HA1C #### [facility] ([id number]) [address], [address] [place] [address] Glucose [Mass/Vol] 113 mg/dL High 65-99 [facility] Comment on above: Performed By: #### Veronica MARIE 58356-4, HA1C #### [facility] ([id number]) [address], [address] [place] [address] Potassium [Moles/Vol] 3.6 mmol/L Normal 3.5-5.0 [facility] Comment on above: Performed By: #### Veronica MARIE 89349-6, HA1C #### [facility] ([id number]) [address], [address] [place] [address] Protein [Mass/Vol] 7.5 g/dL Normal 6.0-8.0 [facility] Comment on above: Performed By: #### Veronica MARIE, 94130-2, HA1C #### [facility] ([id number]) [address], [address] [place] [address] Sodium [Moles/Vol] 141 mmol/L Normal 134-146 [facility] Comment on above: Performed By: #### Veronica MARIE, 17619-3, HA1C #### [facility] ([id number]) [address], [address] [place] [address] Urea nitrogen [Mass/Vol] 4 mg/dL Low 5-23 [facility] Comment on above: Performed By: #### C , 44795-9, HA1C #### [facility] ([id number]) [address], [address] [place] [address] DRUG SCREEN, URINEon 025 AMPHETAMINE/METHAMP Negative Normal NEG [facility] Comment on above: Result Comment: AMPH /METH screening cut off = 1000 ng/mL Performed By: #### D HENDRICKSON #### [facility] ([id number]) [address], [address] [place] [address] BARBITURATES Negative Normal NEG [facility] Comment on above: Result Comment: Veronika iturates screening cut off value = 200 ng/mL Performed By: #### D HENDRICKSON #### [facility] ([id number]) [address], [address] [place] [address] BENZODIAZEPINES Positive Abnormal NEG [facility] Comment on above: Result Comment: Conf irmation available upon request. Benzodiazepines screening cut off value = 200 ng/mL Performed By: #### D HENDRICKSON #### [facility] ([id number]) [address], [address] [place] [address] CANNABINOIDS Negative Normal NEG [facility] Comment on above: Result Comment: Malathi abinoids/THC screening cut off value = 50 ng/mL Performed By: #### D HENDRICKSON #### [facility] ([id number]) [address], [address] [place] [address] COCAINE METABOLITE Negative Normal NEG [facility] Comment on above: Result Comment: Coca ine screening cut off value = 300 ng/mL Performed By: #### D HENDRICKSON #### [facility] ([id number]) [address], [address] [place] [address] ECSTASY Negative Normal NEG [facility] Comment on above: Result Comment: Ecst asy screening cut off value = 500 ng/mL This report is intended for use in clinical monitoring or management of patients. Performed By: #### D HENDRICKSON #### [facility] ([id number]) [address], [address] [place] [address] METHADONE Negative Normal NEG [facility] Comment on above: Result Comment: Meth adone screening cut off value = 300 ng/mL. Performed By: #### D HENDRICKSON #### [facility] ([id number]) [address] [facility] [address] [place] [address] OPIATES Negative Normal NEG [facility] Comment on above: Result Comment: Opia ellen screening cut off value = 300 ng/mL NOTE: This test is used for the detection of codeine, hydrocodone (>1000 ng/mL), morphine and hydromorphone (>900 ng/mL) in urine. Performed By: #### D HENDRICKSON #### [facility] ([id number]) [address] [facility], [address] [address] OXYCODONE Positive Abnormal NEG [facility] Comment on above: Result Comment: Conf irmation available upon request. Oxycodone screening cut off value = 300 ng/mL NOTE: This test is used for the detection of oxycodone and oxymorphone in urine. Performed By: #### D HENDRICKSON #### [facility] ([id number]) [facility], [address] [address] PHENCYCLIDINE Negative Normal NEG [facility] Comment on above: Result Comment: Phen cyclidine screening cut off value = 25 ng/mL Performed By: #### D HENDRICKSON #### [facility] ([id number]) [address], [address] [place] [address] HGB A1C (GLYCO-HGB)on 2024 Glucose [Mass/Vol] 126 mg/dL Normal [facility] Comment on above: Performed By: #### C , 52202-3, HA1C #### [facility] ([id number]) [address], [address] [place] [address] HbA1c (Bld) [Mass fraction] 6.0 % High 4.4-5.6 [facility] Comment on above: Result Comment: NOTE ADA Guidelines Result HgbA1c Normal : less than 5.7 % Prediabetes : 5.7 % to 6.4 % Diabetes : > 6.4 % Use with caution in patients with abnormal hemoglobin variants as the half-life of red blood cells and in vivo glycation rates are affected. Performed By: #### Veronica MARIE, 67446-7, HA1C #### [facility] ([id number]) [address] [address] [place] [address] Lipid 1996 panelon 5 Cholesterol [Mass/Vol] 165 mg/dL Normal 150-200 [facility] Comment on above: Performed By: #### Veronica MARIE, 26016-1, HA1C #### [facility] ([id number]) [address], [address] [place] [address] Cholesterol in HDL [Mass/Vol] 42 mg/dL Normal >39 [facility] Comment on above: Result Comment: HDL <40 mg/dL - High Risk HDL > or = 40mg/dL- Desirable HDL >60 mg/dL - Negative Risk Performed By: #### Veronica MARIE, 46521-4, HA1C #### [facility] ([id number]) [address], [address] [place] [address] Cholesterol in LDL [Mass/Vol] 67 mg/dL Normal <130 [facility] Comment on above: Result Comment: LDL <100 mg/dL - Desirable LDL >160 mg/dL - High Risk Performed By: #### C CYNTHIA, 09514-0, HA1C #### [facility] ([id number]) [address], [address] [place] [address] Cholesterol in VLDL [Mass/Vol] 56 mg/dL High 0-30 [facility] Comment on above: Performed By: #### C CYNTHIA, 27223-7, HA1C #### [facility] ([id number]) [address], [address] [place] [address] CHOLESTEROL:HDL 3.9 Normal 1.0-5.0 [facility] Comment on above: Performed By: #### C CYNTHIA, 06770-0, HA1C #### [facility] ([id number]) [address], [address] [place] [address] Triglyceride [Mass/Vol] 281 mg/dL High 27-150 [facility] Comment on above: Performed By: #### C CYNTHIA, 60744-9, HA1C #### [facility] ([id number]) [address], [address] [place] [address] 36on 09-08-2024 36 Patient called to re quest refill on Percocet Please see pended medication. [facility] Patient Good # [phone] Normal [facility] 36 Patient called and n eeds a refill on pain medication [facility] Orders Onlyon 09-08-2024 Orders Only [id number] Violet Herrera ie J 1970 F Date Provider Department Center 09/08/2024 16483-RJYZSQSZFUONBRIGID HOLLOWAYMP ORTHO MPORTHO No family history on file [facility] Refillon 09-08-2024 Refill [id number] DerrickViolet ie J 1970 F Date Provider Department Center 09/08/2024 803-YAMILETH SAEED MP ORTHO MPORTHO No family history on file [facility] 36on 08-31-2024 36 Already refilled Normal [facility] 36 Patient would like a refill of her pain medication Normal [facility] 36 Patient called to re quest refill on percocet 5-325 mg. Please see pended medication. [facility] - [place], [place] - [address] [place] [address] [id number] [place], [place] [facility] [address] [facility] [address] [place] [address] Patient Good # [phone] Normal [facility] Orders Onlyon 08-31-2024 Orders Only [id number] Violet Herrera ie J 1970 F Date Provider Department Center 08/31/2024 32034-HDNUHPRHNWRRSUMMER HOLLOWAY ORTHO MARYHO No family history on file [facility] Refillon 08-31-2024 Refill [id number] Violet Herrera 1970 F Date Provider Department Center 08/31/2024 LAN HAGEN MP ORTHO MPORTHO No family history on file Reason for Visit and Comments: Med Refill [[id number]] [facility] 36on 08-24-2024 36 Patient called state d she needs a refill of her pain medications Normal [facility] Orders Onlyon 08-24-2024 Orders Only [id number] Violet Herrera J 1970 F Date Provider Department Center 08/24/2024 00235-IORYXEPOPJVOSUMMER HOLLOWAY ORTHO TAMICA No family history on file [facility] Follow-Upon 08-17-2024 Follow-Up [id number] Violet Herrera J 1970 F Date Provider Department Center 08/17/2024 JOSSELINE NGUYEN MP ORTHO MPORTHO No family history on file Level of Service:96840 MA OFFICE/OUTPATIENT ESTABLISHED MOD MDM 30 MIN Reason for Visit and Comments: New Patient [632] Pain [136] Normal [facility] Office Visiton 08-17-2024 Follow-up visit [id number] Violet Herrera ie J 1970 F Date Provider Department Center 08/17/2024 JudyAnaIVONNEGordyLAN MP ORTHO MPORTHO No family history on file Level of Service:38755 MA POSTOP FOLLOW UP VISIT RELATED TO ORIGINAL PX Reason for Visit and Comments: Pain [136] Post-op [483] Normal [facility] Orders Onlyon 08-17-2024 Orders Only [id number] Violet Herrera ie J 1970 F Date Provider Department Center 08/17/2024 63597-BTNCYFHPHPGCBRIGID HOLLOWAYMP ORTHO MPORTHO No family history on file [facility] Heart and Vascular Office/Cl inic Noteon 08-13-2024 Heart and Vascular Office/Clinic Note Heart and Vascular Office/Clinic Note Chief Complaint 6 month F/U History of Present Illness Patient is a 53-year-old female with past medical history of hypertension, hyperlipidemia, and SVT, on Cardizem and carvedilol. Patient comes in for 6-month follow-up today. She was seen by En Carmen last time in January 2024. Her prior cardiac workup as listed below. She presents today with no new cardiac related complaints. She does have occasional palpitations, which do not seem to bother her much. Denies chest pain, shortness of breath, syncope or presyncope, dizziness or lightheadedness. Review of Systems PHQ Score Initial Depression Screen Score: 0 SCORE ROS - Provider Constitutional: no fever, no chills, no fatigue Skin:no rash, no lesions ENMT: no ear pain, no sore throat, no congestion. Respiratory: no shortness of breath, no cough, no wheezing. Cardiovascular: no chest pain, yes palpitations, no edema. Gastrointestinal: no nausea, no vomiting, no diarrhea, no GI bleeding. Genitourinary: no dysuria, no frequencyno hematuria Musculoskeletal: no back pain, no trauma. Neurologic: no headache, no dizziness, no numbness, no weakness. Psychiatric: no sleeping problems, no irritability, no mood swings/depression. Heme/Lymph: no bleeding tendency, no bruising tendency, no petechiae, Allergy/Immuno logic: no seasonal allergies, no food allergies, no recurrent infections Physical Exam Vitals & Measurements HR: 62(Peripheral) RR: 18 BP: 120/76 SpO2: 98% HT: 64 in HT: 163 cm WT: 74.0 kg WT: 163.142 lb BMI: 27.85 General: alert, no acute distress Neck: Supple, noJVD nocarotid bruit Cardiovascular: regular rate and rhythm, no murmur normal peripheral perfusion Respiratory: Lungs CTAB, respirations non labored Extremities: no edema left lower extremity. no edema right lower extremity Neurological: oriented x 4, LOC appropriate for age, speech normal Skin: Warm, dry, intact- no rash or concerning lesions Procedure Cardiac Diagnostics Event monitor from 06/01/2021 with [...] 4. Normal estimated pulmonary artery pressure. [1] C with Dr. Beltran on 03/03/2020: CONCLUSIONS: 1. Essentially normal coronary arteriograms. 2. Noncardiac chest pain. [1] Assessment/Plan 1. SVT (supraventricular tachycardia) (I47.1: Supraventricular tachycardia) The patient is minimally symptomatic. Continue current treatment with calcium channel blockers or beta-laz. 2. Hypertension (I10: Essential (primary) hypertension) Blood pressure is well-controlled. Continue current therapy. Follow-up No qualifying data available 1 year with SHARYN Flor Problem List/Past Medical History Ongoing Anxiety BMI [...] Post traumatic stress disorder (PTSD) Procedure/Surgical History Epidural injection of lumbar spine using fluoroscopic guidance (12/11/2023), Colonoscopy (01/17/2023), Hammer toe (11/21/2022), Metatarsal (11/21/2022), Esophagogastroduodenosc (more content not included)... [facility] Comment on above: Result Comment: Elec tronically Signed By: Anoop WALSH, Kehinde Thibodeaux\.br\Date and Time Signed: 08/13/24 13:28 EST 36on 08-10-2024 36 Patient called and c hecked the status of her medication. Linux System Admin informed her Dr. Rubi is not in the office and will get to it as soon as possible. [facility] 36 Already filled [facility] 36 Patient called reque sting refill. Patient called to request refill on Perocoet Please see pended medication. [facility] Patient Good # [phone] [facility] 36 Patient called again today stating that the pharmacy has not received a script for the Percocet 5-325 mg. Please advise. Thank you. [facility] Orders Onlyon 08-10-2024 Orders Only [id number] Violet Herrera 1970 F Date Provider Department Center 08/10/202490488-GKIXPCKDBOUMAR CARDONA [facility] [address] No family history on file [facility] 36on 08-08-2024 36 Order was put in and pharmacy was changed, waiting for approval [facility] Orders Onlyon 08-08-2024 Orders Only [id number] Violet Herrera angelika Grewal 1970 F Date Provider Department Center 08/08/2024 803-YAMILETH SAEED MP ORTHO MPORTHO No family history on file [facility] 36on 08-07-2024 36 Patient states she n eeds her medication transferred to the [facility] [place] [address] Please contact patient with any problems or concerns at [phone] [facility] 36 Patient called to re quest refill on Percocet Please see pended medication. Pharmacy [facility] [address] [facility] [address] Patient Good # [phone] [facility] IGP,APTIMA HPV,AGE GDLNon AGE GDLN ACOG TESTING Note . [facility] Comment on above: TESTS RESULT FLAG UN ITS REF RANGE LAB Clinician Provided Cytology Information Source.............Vagina No. of containers..01 ThinPrep Vial Age Algo ACOG Ellen... FLAG LEGEND: L-Low Normal,H-High Normal,LL-Alert Low,HH-Alert High <-Panic Low,>-Panic High,A-Abnormal,AA-Critical Abnormal Performed at: 01 =[address] [address] Estelle Mckeon MD, HPV APTIMA Negative Negative [facility] Comment on above: This nucleic acid am plification test detects fourteen high- risk HPV types (16,18,31,33,35,39,45,51,52,56,58,59,66,68) without differentiation. Performed at: =[address] [id number] Orthotics Prosthetics Technician: Estelle Mckeon MD, Phone: [phone] Performed at: [address] [id number] Orthotics Prosthetics Technician: Estelle Mckeon MD, Phone: [phone] IGP, APTIMA HPV, RFX 16/18,45 Note . [facility] Comment on above: TESTS RESULT FLAG UN ITS REF RANGE LAB DIAGNOSIS: 02 NEGATIVE FOR INTRAEPITHELIAL LESION OR MALIGNANCY. Specimen adequacy: 02 Satisfactory for evaluation. Performed by: 02 Edwina Vasquez Edge Glue Machine Tender (ASCP) . 02 Note: Note 02 The Pap smear is a screening test designed to aid in the detection of premalignant and malignant conditions of the uterine cervix. It is not a diagnostic procedure and should not be used as the sole means of detecting cervical cancer. Both false-positive and false-negative reports do occur. Test Methodology: Note 02 This liquid based ThinPrep(R) pap test was screened with the use of an image guided system. HPV Genotype Reflex Note 02 Criteria not met, HPV Genotype not performed. FLAG LEGEND: L-Low Normal,H-High Normal,LL-Alert Low,HH-Alert High <-Panic Low,>-Panic High,A-Abnormal,AA-Critical Abnormal Performed at: [address] [address] Estelle Mckeon MD, SPATULA-ALONE [facility] Anesthesiaon 08-03-2024 Anesthesia [id number] Violet Herrera angelika Grewal 1970 F Date Provider Department Center 08/03/2024 73984-PLWLHGISELE [facility] No family history on file Normal [facility] HPon 08-03-2024 HP History Of Present I llness Rock Carmina Herrera is a 54 y.o. female presenting with persisting ulnar nerve symptoms after a decompression of the ulnar nerve, and recurrent carpal tunnel symptoms..She is scheduled today for revision to a submuscular ulnar nerve transposition and revision of a carpal tunnel release on the left arm. Past Medical History She has a past medical history of Allergic rhinitis, Anxiety, Arthritis, Coronary artery disease, Depression, Diabetes mellitus (CMS/HCC), Fibromyalgia, primary, Heart valve disease, Hyperlipidemia, Hypertension, Myocardial infarction ([facility]), and Sleep apnea. Surgical History She has a past surgical history that includes Appendectomy; Carpal tunnel release; Eye surgery; Cataract extraction; Colonoscopy; Hysterectomy; Toe Surgery; Plantar fascia release; Sinus surgery; Other surgical history; and Other surgical history. Social History She reports that she has been smoking cigarettes. She has never used smokeless tobacco. She reports that she does not currently use alcohol. She reports that she does not currently use drugs. Family History No family history on file. Allergies Codeine, Divalproex, Fish containing products, Iodinated contrast media, Ketorolac, Other, Paroxetine, Sulfamethoxazole-trimethopri m, Amitriptyline, Atomoxetine, Bupropion, Doxycycline, Gabapentin, Meloxicam, Oxcarbazepine, Ropinirole, Ziprasidone, Aloe, Dexamethasone (pf), Duloxetine, Eicosapentaenoic acid, Methocarbamol, Milnacipran, Moxifloxacin-sod.chloride(is o), Sodium chloride-aloe vera, Adhesive, Adhesive tape-silicones, Fluticasone propion-salmeterol, Ibuprofen, Methadone, Nitrofurantoin monohyd/m-cryst, Penicillins, Pregabalin, Shellfish containing products, Topiramate, and Verapamil Medications Medications Prior to Admission Medication Sig Dispense Refill Last Dose ALPRAZolam (Xanax) 1 mg tablet Take 1 tablet by mouth if needed in the morning, at noon, and at bedtime. atorvastatin (Lipitor) 80 mg tablet Take 1 tablet by mouth in the morning. furosemide (LASIX ORAL) Take 20 mg by mouth in the morning. meclizine (Antivert) 25 mg tablet Take 25 mg by mouth if needed in the morning, at noon, and at bedtime. albuterol 90 mcg/actuation inhaler Inhale 2 puffs every 6 (six) hours if needed for wheezing. alendronate (Fosamax) 70 mg tablet Take 70 mg by mouth every 7 (seven) days. ARIPiprazole (Abilify) 15 mg tablet Take 15 mg by mouth in the morning. carvedilol (Coreg) 25 mg tablet Take 1 tablet by mouth in the morning and at bedtime. cetirizine (ZyrTEC) 10 mg tablet Take 1 tablet by mouth in the morning. dilTIAZem CD (Cardizem CD) 120 mg 24 hr capsule Take 120 mg by mouth in the morning. loperamide (Imodium A-D) 2 mg tablet Take 2 mg by mouth every 12 (twelve) hours if needed. metFORMIN (Glucophage) 500 mg tablet Take 500 mg by mouth with breakfast. montelukast (Singulair) 10 mg tablet Take 10 mg by mouth in the evening. omeprazole (PriLOSEC) [address] capsule Take 40 mg by mouth at bedtime. orphenadrine (Norflex) 100 mg 12 hr tablet Take 100 mg by mouth at bedtime. solifenacin (VESIcare) 10 mg tablet Take 10 mg by mouth in the morning. Review of Systems Last Recorded Vitals Visit Vitals BP 126/69 Pulse 52 Temp 36 ???C (96.8 ???F) (Temporal) Resp 20 Ht 1.626 m (5' 4 ) Wt 73.6 kg (162 lb 4.1 oz) SpO2 99% BMI 27.85 kg/m??? Smoking Status Every Day BSA 1.82 m??? Physical Exam Musculoskeletal: Comments: left upper extremity: There is a positive Tinel's with percussion over the ulnar nerve at the elbow, and the median nerve at the wrist. Relevant Lab Results No results found for: NA , K , CL , CO2 , BUN , CREATININE , GLUCOSE , CALCIUM , ANIONGAP , EGFR , BCR Relevant Imaging Results No image results found. Assessment/Plan Principal Problem: Left arm pain Active Problems: CELINE (obstructive sleep apnea) Plan: Revision carpal tunnel release left hand, revision to submuscular ulnar nerve transposition left elbow Normal [facility] NURSNOTEon 08-03-2024 NURSNOTE Family at bedside RN reviewed discharge and gave copy. Normal [facility] OPNOTEon 08-03-2024 OPNOTE Operative Note Patient: Rock Herrera Date of Surgery: 08/03/2024 : 1970 Pre-operative Diagnosis: 1. Recurrent Cubital Tunnel Syndrome (ulnar neuropathy) left Elbow, 2. Recurrent carpal tunnel syndrome left hand Post-operative Diagnosis: same Operation: Submuscular Transposition of Ulnar Nerve left Elbow (56806) Carpal Tunnel Release left Hand (45471) Surgeon: Lan Rubi MD Promotions Executive Producer: Radha Whitley MD Staff: Taxi Cab Driver: Luca Cabrera RN; Champ Sheehan RN Relief Scrub: Shelby Davis CST Scrub Person: Valery Myles CST Orientee Scrub: Ramakrishna Gillespie RN Anesthesia Type: Regional Indications: The patient is an 54 y.o. female with complaints of numbness in the left arm. she has previously undergone a carpal tunnel release and also a decompression of the ulnar nerve. On her examination, and preoperative valuation are consistent with both recurrent carpal tunnel syndrome and ulnar neuropathy. I felt that given her progression of symptoms despite nonoperative treatments, that she was a candidate for a revision carpal tunnel release and conversion to a submuscular transposition of the ulnar nerve. The patient is brought to the operating room today for a transposition of the ulnar nerve. The risks and benefits were explained prior to surgery, and with good understanding it is agreed to proceed. Procedure Details The patient is taken to the operating room and placed on the table in a supine position. The left arm is placed onto the hand table. A regional anesthetic had been performed per the anesthesia service in the holding area. Preoperative antibiotics were given. A tourniquet is placed around the proximal arm and left upper extremity is prepped and draped out in a sterile fashion. To begin the procedure, after a standard timeout, The arm is exsanguinated with an Esmarch bandage and the tourniquet is inflated to 250 mmHg. Using a 15 blade, The previous surgical scar was utilized and extended proximally across the wrist crease in a zigzag fashion. The nerve was identified at the most proximal end of our dissection and exposure. Skin hooks were used to elevate the skin flaps and then the nerve is dissected free working from proximal to distal using both a scissor and a knife. There is no significant muscle overlying the transverse carpal ligament as we get through the carpal tunnel region. , once we had the carpal tunnel opened up completely the median nerve is dissected free. There is an area through the carpal tunnel where there is significant scarring and the nerve had to be carefully dissected away from the adjacent tissues. Once we had the nerve mobilized completely we looked at the flexor tendons and there is really not much in the way of hypertrophic synovium. No debridement of the tendons was necessary. The wound is irrigated with normal saline solution. The skin is closed with 5-0 Prolene suture. We then turned our attention to the ulnar nerve. The arm is abducted and externally rotated, and the elbow was placed on a small stack of blue towels. Using a 15 blade, The previous surgical scar was incorporated into our incision, and extended both proximally and distally to get to normal tissue. Blunt dissection is carried out through the subcutaneous tissue. Care was taken to preserve any large branches of the medial antebrachial cutaneous nerve. The ulnar nerve is palpable just above and behind the medial epicondyle. The nerve is exposed at that level. We dissected proximally up to the level of the arcade of [place]. We carefully released the ulnar nerve through the cubital tunnel region. Distally the FCU fascia was split both superficial and deep. Care was taken to preserve the motor branches as they were starting to come off of the ulnar nerve. A vessel loop was placed around the ulnar nerve so that we could safely control it. The nerve was dissected out circumferentially so that it could be transposed. Before moving the nerve, the intermuscular septum along the epicondylar ridge was dissected out and excised using a Bovie. I then incised the fascia at the superior edge of the flexor pronator muscle mass. I bluntly dissected underneath the muscle mass with my finger. Keeping the ulnar nerve protected throughout, a Bovie was used to release the flexor origin from the medial epicondyle. I dissected with the Bovie working my way towards my finger, and avoiding getting into the ulnar collateral ligament. We developed a nice submuscular plane. Any thick fascial bands within the muscle were released. The median nerve was identified at the anterior extent of our dissection. Once I had the bed prepared the nerve is placed into that submuscular plane. It is not tethered or kinked anywhere. The wrist is flexed to take tension off of the flexor pronator muscles, and the flexor origin is repaired with [id number] sutures of 2-0 Vicryl. The fasci (more content not included)... Normal [facility] POCT GLUCOSE METER UNSOLICIT ED RESULTSon 08-03-2024 Glucose [Mass/Vol] 132 mg/dL High 70-105 [facility] Comment on above: Order Comment: Waive d Testing in the ED is performed under the ED CLIA certificate #[id number]. Result Comment: jenc k2 Performed By: #### L [id number] ####[facility] ([facility])[address] [place] [address] [id number] 07-27-2024 [id number] SURGERY DATE: 4 Medications to take Morning [...] THE FOLLOWING ARE NOT AVAILABLE: An adult cart driver over the age of 18, that can [...] lenses. Do not wear perfume, make-up, nail hungarian, or lotions on the day of your [...] need to make any changes, please call [phone]. Notify your surgeon if you develop any illness such as a cold, cough, fever, sore throat or vomiting between now and your surgery. Thank you for entrusting us with your care. [facility] Surgical Services Team Normal [facility] Abstracton 07-23-2024 Abstract [id number] Violet Herrera 1970 F Date Provider Department Center 07/23/2024 803-YAMILETH SAEED MP ORTHO MPORTHO No family history on file [facility] 36on 07-21-2024 36 Below number is the wrong number, the number [phone] is out of order, and spoke with patient and she gave me the same number, called number it rang one time and the message: the number you dialed is not in service at this time and hung up. [facility] 36 Attempted to call keshia jerez to get this report, they sent me to a new number [phone], and the report will be sent over. [facility] 36 m this morning to have it faxed [facility] 36on 07-20-2024 [address] Danica Sanchez to get the office to fax over the EMG results so we have it for the peer to peer [facility] Telephoneon 07-20-2024 Telephone [id number] Violet Herrera 1970 F Date Provider Department Center 07/20/2024 803-YAMILETH SAEED MP ORTHO MPORTHO No family history on file [facility] CBC AND AUTO DIFFon 07-07-20 24 ABSOLUTE BASOPHIL 0.0 X10E9/L Normal 0.0-0.2 [facility] Comment on above: Performed By: #### C RT #### [facility] ([id number]) [address] [place] [address] ABSOLUTE NEUTROPHIL 9.9 X10E9/L High 1.5-6.6 [facility] Comment on above: Performed By: #### C RT #### [facility] ([id number]) [address] [place] [address] Basophils/100 WBC (Bld) 0.3 % Normal [facility] Comment on above: Performed By: #### C RT #### [facility] ([id number]) [address] [place] [address] Eosinophils (Bld) [#/Vol] 0.2 10*3/uL Normal 0.0-0.4 [facility] Comment on above: Performed By: #### C RT #### [facility] ([id number]) [address] [place] [address] Eosinophils/100 WBC (Bld) 1.6 % Normal [facility] Comment on above: Performed By: #### C RT #### [facility] ([id number]) [address], [address] [place] [address] Erythrocyte distribution width (RBC) [Ratio] 14.9 % Normal 11.5-15.0 [facility] Comment on above: Performed By: #### C RT #### [facility] ([id number]) [address], [address] [place] [address] Hematocrit (Bld) [Volume fraction] 42.7 % Normal 35-47 [facility] Comment on above: Performed By: #### C RT #### [facility] ([id number]) [address], [address] [place] [address] Hemoglobin (Bld) [Mass/Vol] 14.6 g/dL Normal 11.7-15.5 [facility] Comment on above: Performed By: #### C RT #### [facility] ([id number]) [address], [address] [place] [address] Lymphocytes (Bld) [#/Vol] 3.7 10*3/uL High 1.0-3.5 [facility] Comment on above: Performed By: #### C RT #### [facility] ([id number]) [address], [address] [place] [address] Lymphocytes/100 WBC (Bld) 25.3 % Normal [facility] Comment on above: Performed By: #### C RT #### [facility] ([id number]) [address], [address] [place] [address] MCH (RBC) [Entitic mass] 33.6 pg Normal 27-34 [facility] Comment on above: Performed By: #### C RT #### [facility] ([id number]) [address], [address] [place] [address] MCHC (RBC) [Mass/Vol] 34.3 g/dL Normal 32-36 [facility] Comment on above: Performed By: #### C RT #### [facility] ([id number]) [address], [address] [place] [address] MCV (RBC) [Entitic vol] 98 fL Normal 80-100 [facility] Comment on above: Performed By: #### C RT #### [facility] ([id number]) [address], [address] [place] [address] Monocytes (Bld) [#/Vol] 0.9 10*3/uL Normal 0-0.9 [facility] Comment on above: Performed By: #### C RT #### [facility] ([id number]) [address], [address] [place] [address] Monocytes/100 WBC (Bld) 5.8 % Normal [facility] Comment on above: Performed By: #### C RT #### [facility] ([id number]) [address], [address] [place] [address] Neutrophils/100 WBC (Bld) 67.0 % Normal [facility] Comment on above: Performed By: #### C RT #### [facility] ([id number]) [address], [address] [place] [address] Platelet mean volume (Bld) [Entitic vol] 8.5 fL Normal 7-12 [facility] Comment on above: Performed By: #### C RT #### [facility] ([id number]) [address], [address] [place] [address] Platelets (Bld) [#/Vol] 228 10*3/uL Normal 150-450 [facility] Comment on above: Performed By: #### C RT #### [facility] ([id number]) [address], [address] [place] [address] RBC COUNT 4.35 X10E12/L Normal 3.80-5.20 [facility] Comment on above: Performed By: #### C RT #### [facility] ([id number]) [address], [address] [place] [address] WBC (Bld) [#/Vol] 14.8 10*3/uL High 4.0-11.0 [facility] Comment on above: Performed By: #### C RT #### [facility] ([id number]) [address], [address] [place] [address] COMPREHENSIVE METABOLIC PANE Bulmaro 07-07-2024 Albumin [Mass/Vol] 3.9 g/dL Normal 3.2-5.3 [facility] Comment on above: Performed By: #### C RT #### [facility] ([id number]) [address], [address] [place] [address] ALP [Catalytic activity/Vol] 104 U/L Normal 39-130 [facility] Comment on above: Performed By: #### C RT #### [facility] ([id number]) [address], [address] [place] [address] ALT [Catalytic activity/Vol] 27 U/L Normal 0-31 [facility] Comment on above: Performed By: #### C RT #### [facility] ([id number]) [address], [address] [place] [address] Anion gap [Moles/Vol] 10 mmol/L Normal 5-15 [facility] Comment on above: Performed By: #### C RT #### [facility] ([id number]) [address], [address] [place] [address] AST [Catalytic activity/Vol] 19 U/L Normal 0-41 [facility] Comment on above: Performed By: #### C RT #### [facility] ([id number]) [address], [facility] [address] [place] [address] Bilirubin [Mass/Vol] 0.6 mg/dL Normal 0.3-1.2 [facility] Comment on above: Performed By: #### C RT #### [facility] ([id number]) [address] [address] [place] [address] Calcium [Mass/Vol] 9.7 mg/dL Normal 8.5-10.5 [facility] Comment on above: Performed By: #### C RT #### [facility] ([id number]) [address] [address] [place] [address] Chloride [Moles/Vol] 101 mmol/L Normal 98-109 [facility] Comment on above: Performed By: #### C RT #### [facility] ([id number]) [address] [address] [place] [address] CO2 [Moles/Vol] 26 mmol/L Normal 22-32 [facility] Comment on above: Performed By: #### C RT #### [facility] ([id number]) [address] [address] [place] [address] Creatinine [Mass/Vol] 0.95 mg/dL Normal 0.40-1.00 [facility] Comment on above: Result Comment: METH OD TRACEABLE TO IDMS STANDARD Performed By: #### C RT #### [facility] ([id number]) [address] [address] [place] [address] GFR/1.73 sq M.predicted among non-blacks MDRD (S/P/Bld) [Vol rate/Area] 72 mL/min/{1.73_m2} Normal >59 [facility] Comment on above: Result Comment: Reported eGFR is based on the CKD-EPI 2020 equation that does not use a race coefficient. Performed By: #### C RT #### [facility] ([id number]) [address], [address] [place] [address] Glucose [Mass/Vol] 152 mg/dL High 65-99 [facility] Comment on above: Performed By: #### C RT #### [facility] ([id number]) [address] [address] [place] [address] Potassium [Moles/Vol] 3.8 mmol/L Normal 3.5-5.0 [facility] Comment on above: Performed By: #### C RT #### [facility] ([id number]) [address] [address] [place] [address] Protein [Mass/Vol] 7.3 g/dL Normal 6.0-8.0 [facility] Comment on above: Performed By: #### C RT #### [facility] ([id number]) [address], [address] [place] [address] Sodium [Moles/Vol] 137 mmol/L Normal 134-146 [facility] Comment on above: Performed By: #### C RT #### [facility] ([id number]) [address] [address] [place] [address] Urea nitrogen [Mass/Vol] 9 mg/dL Normal 5-23 [facility] Comment on above: Performed By: #### C RT #### [facility] ([id number]) [address], [address] [place] [address] CT ABDOMEN AND PELVIS W CONT on [...] Varghese MD on 07/07/2024 7:42 PM Normal [facility] Fibrin D-dimer DDU (PPP) [Ma ss/Vol]on 07-07-2024 D DIMER 279 ng/mL DDU High <255 [facility] Comment on above: Result Comment: Results [...] Performed By: #### C FELIX, CMP, 3040-3, 20073-8, 82838-5 ####[facility] ([id number])[address] [place] [address] 07-07-2024 Lipase [Catalytic activity/Vol] 23 U/L Normal 17-40 [facility] Comment on above: Performed By: #### C RT #### [facility] ([id number]) [address] [facility] [place] [address] Troponin I.cardiac High sens itivity method [Mass/Vol]on 07-07-2024 1 HOUR TROP I, HIGH SENSITIVITY 3 ng/L Normal <16 [facility] Comment on above: Performed By: #### 8 9579-7 ####[facility] ([id number])[address] [place] [address] TROPONIN I, HIGH SENSITIVITY 3 ng/L Normal <16 [facility] Comment on above: Performed By: #### C BCA, CMP, 3040-3, 07291-2, 60324-9 ####[facility] ([id number])[address] [place] [address] URINE CULTUREon 07-07-2024 Bacteria identified Cx Nom [...] <=1 F TRIMETH/SULFAMETHOXAZOLE S <=1/19 F Susceptible [facility] Comment on above: Performed By: #### 6 30-4 ####[facility] ([id number])[address], [address] [place] [address] URN MACROSCOPIC NURon 2023 BILIRUBIN LISA Negative Normal NEG [facility] Comment on above: Performed By: #### N UM ####[facility] ([id number])[address] [place] [address], [place] [address] BLOOD/HGB LISA Trace Abnormal NEG [facility] Comment on above: Performed By: #### N UM ####[facility] ([id number])[address] [place] [address], [place] [address] GLUCOSE LISA Negative Normal NEG [facility] Comment on above: Performed By: #### N UM ####[facility] ([id number])[address] [place] [address], [place] [address] KETONES LISA Negative Normal NEG [facility] Comment on above: Performed By: #### N UM ####[facility] ([id number])[address] [place] [address], [place] [address] LEUKOCYTE ESTERASE LISA Negative Normal NEG [facility] Comment on above: Performed By: #### N UM ####[facility] ([id number])[address] [place] [address], [place] [address] NITRITE LISA Positive Abnormal NEG [facility] Comment on above: Performed By: #### N UM ####[facility] ([id number])[address] [place] [address], [place] [address] PH LISA 5.0 Normal 5.0-8.5 [facility] Comment on above: Performed By: #### N UM ####[facility] ([id number])[address] [place] [address], [place] [address] PROTEIN LISA 30 mg/dL Abnormal NEG [facility] Comment on above: Performed By: #### N UM ####[facility] ([id number])[address] [place] [address], [place] [address] SPECIFIC GRAVITY LISA <=1.005 Normal 1.003-1.03 5 [facility] Comment on above: Performed By: #### N UM ####[facility] ([id number])[address] [place] [address] UROBILINOGEN LISA 0.2 eu/dL Normal <1.1 [facility] Comment on above: Performed By: #### N ####[facility] ([id number])[address] [place] [address] XR CHEST 1 VWon 07-07-2024 XR CHEST 1 VW XR CHEST 1 VW Single view chest XR CHEST 1 VW History: Chest pain Comparison: May 18, 2022 Impression: * No consolidation or pleural fluid. No acute findings. Finalized by Alex Varghese MD on 07/07/2024 8:09 PM Normal [facility] XR KNEE LT 3 VWSon XR [...] Khan MD on 06/28/2024 2:19 PM Normal [facility] Office Visiton 06-16-2024 Follow-up visit [id number] Violet Herrera 1970 F Date Provider Department Center 06/16/2024 [facility] No family history on file Level of Service:12126 [place] OFFICE/OUTPATIENT NEW LOW MDM 30 MINUTES Reason for Visit and Comments: Pain [136] New Patient [632] Normal [facility] COMPLETE BLOOD COUNTon 05-04 Erythrocyte distribution width (RBC) [Ratio] 14.1 % Normal 11.5-15.0 [facility] Comment on above: Performed By: #### 1 5205-8, CBC, 1988-5, 3016-3, 14961-6, 31136-6, 84138-6 #### [facility] ([id number]) [address] [facility] [place] [address] Hematocrit (Bld) [Volume fraction] 42.9 % Normal 35-47 [facility] Comment on above: Performed By: #### 1 5205-8, CBC, 1987-12, 3016-3, 61079-6, 85259-2, 20550-4 #### [facility] ([id number]) [address], [facility] [address] [place] [address] Hemoglobin (Bld) [Mass/Vol] 14.8 g/dL Normal 11.7-15.5 [facility] Comment on above: Performed By: #### 1 5205-8, CBC, 1987-12, 3015-10, 63812-6, 72616-7, 06715-9 #### [facility] ([id number]) [address], [facility] [address] [place] [address] MCH (RBC) [Entitic mass] 34.1 pg High 27-34 [facility] Comment on above: Performed By: #### 1 5205-8, CBC, 1987-12, 3, 89935-7, 95046-8, 31164-5 #### [facility] ([id number]) [address], [facility] [address] [place] [address] MCHC (RBC) [Mass/Vol] 34.6 g/dL Normal 32-36 [facility] Comment on above: Performed By: #### 1 5205-8, CBC, 1987-12, 3, 26182-3, 43019-2, 77987-3 #### [facility] ([id number]) [address], [facility] [address] [place] [address] MCV (RBC) [Entitic vol] 99 fL Normal 80-100 [facility] Comment on above: Performed By: #### 1 5205-8, CBC, 1987-12, 6-3, 70245-3, 52850-2, 02202-4 #### [facility] ([id number]) [address], [address] [place] [address] Platelet mean volume (Bld) [Entitic vol] 9.1 fL Normal 7-12 [facility] Comment on above: Performed By: #### 1 5205-8, CBC, 1987-12, 3016-3, 35429-5, 74777-3, 18335-7 #### [facility] ([id number]) [address], [address] [place] [address] Platelets (Bld) [#/Vol] 201 10*3/uL Normal 150-450 [facility] Comment on above: Performed By: #### 1 5205-8, CBC, 1987-12, 3016-3, 86415-3, 07403-0, 02413-8 #### [facility] ([id number]) [address], [address] [place] [address] RBC COUNT 4.36 X10E12/L Normal 3.80-5.20 [facility] Comment on above: Performed By: #### 1 5205-8, CBC, 1987-12, 3016-3, 78673-8, 14156-3, 67958-7 #### [facility] ([id number]) [address], [address] [place] [address] WBC (Bld) [#/Vol] 13.4 10*3/uL High 4.0-11.0 [facility] Comment on above: Performed By: #### 1 5205-8, CBC, 1987-12, 3016-3, 87760-4, 99929-7, 04847-0 #### [facility] ([id number]) [address], [address] [place] [address] CRP [Mass/Vol]on 05-04-2024 C REACTIVE PROTEIN 0.3 mg/dL Normal 0.000-0.7 4 4 [facility] Comment on above: Performed By: #### C RT #### [facility] ([id number]) [address] [address] ESR Photometric method (Bld) [Velocity]on 05-04-2024 ESR, ERYTHROCYTE SEDIMENTATION RATE 6 mm/h Normal 0-30 [facility] Comment on above: Performed By: #### C RT #### [facility] ([id number]) [address] [address] Nuclear Ab IA Ql (S)on 05-04 JAIME Screen w/reflex Negative Normal NEG [facility] Comment on above: Result Comment: Testing performed using multiplex flow immunoassay. Eleven different antigens associated with systemic autoimmune diseases (dsDNA,Sm,Sm/CAD TECHNICIAN,CAD TECHNICIAN,Chromatin, SSA,SSB,Yolanda-1,Scl70,Ribo P,Centromere B) are included in this screening test. Performed By: #### C RT #### [facility] ([id number]) [address] [address] Rheumatoid factor Nephelomet ry Qn (S)on 05-04-2024 RHEUMATOID FACTOR 22 IU/mL High <20 [facility] Comment on above: Performed By: #### 1 5205-8, CBC, 1988-5, 3016-3, 35661-6, 92212-3, 21264-7 #### [facility] ([id number]) [address] [address] TSH Qnon 05-04-2024 TSH 1.48 uIU/mL Normal 0.49-4.67 [facility] Comment on above: Performed By: #### C RT #### [facility] ([id number]) [address] [address] [address] lung screeningon 03-31-[address] lung screening [facility] Main [address] [address] [address] Scan Report Signed Patient: Rock Herrera MR#: [id number] 738 : 1970 Acct:[id number] Age/Sex: 53 / F ADM Date: 03/31/24 Loc: [facility] Room: Type: [facility] Attending Dr: CARRILLO Boyd APRN Copies to: [...] Solo Alvarez M.D.03/31/2024 3:12 PM Dictation Location: [place] [address] Transcribed By: [facility] 03/31/24 1512 Dictated By: Solo Alvarez DO 03/31/24 1509 Signed By: 03/31/24 1512 [facility] MR KNEE LT WO CONTon [...] Silvestre MD on 03/31/2024 10:49 AM Normal [facility] BASIC METABOLIC PANLon 02-25 Anion gap [Moles/Vol] 10 mmol/L Normal 5-15 [facility] Comment on above: Performed By: #### C BCA, BMP #### [facility] ([id number]) [address], [address] [place] [address] Calcium [Mass/Vol] 10.1 mg/dL Normal 8.5-10.5 [facility] Comment on above: Performed By: #### C BCA, BMP #### [facility] ([id number]) [address], [address] [place] [address] Chloride [Moles/Vol] 102 mmol/L Normal 98-109 [facility] Comment on above: Performed By: #### C FELIX, BMP #### [facility] ([id number]) [address], [address] [place] [address] CO2 [Moles/Vol] 28 mmol/L Normal 22-32 [facility] Comment on above: Performed By: #### C FELIX, BMP #### [facility] ([id number]) [address], [address] [place] [address] Creatinine [Mass/Vol] 0.83 mg/dL Normal 0.40-1.00 [facility] Comment on above: Result Comment: METH OD TRACEABLE TO IDMS STANDARD Performed By: #### C FELIX, BMP #### [facility] ([id number]) [address], [address] [place] [address] GFR/1.73 sq M.predicted among non-blacks MDRD (S/P/Bld) [Vol rate/Area] 84 mL/min/{1.73_m2} Normal >59 [facility] Comment on above: Result Comment: Reported eGFR is based on the CKD-EPI 2020 equation that does not use a race coefficient. Performed By: #### C FELIX, BMP #### [facility] ([id number]) [address], [address] [place] [address] Glucose [Mass/Vol] 82 mg/dL Normal 65-99 [facility] Comment on above: Performed By: #### C FELIX, BMP #### [facility] ([id number]) [address], [address] [place] [address] Potassium [Moles/Vol] 4.1 mmol/L Normal 3.5-5.0 [facility] Comment on above: Performed By: #### C BCA, BMP #### [facility] ([id number]) [address], [address] [place] [address] Sodium [Moles/Vol] 140 mmol/L Normal 134-146 [facility] Comment on above: Performed By: #### C FELIX, BMP #### [facility] ([id number]) [address], [facility] [address] [place] [address] Urea nitrogen [Mass/Vol] 7 mg/dL Normal 5-23 [facility] Comment on above: Performed By: #### C FELIX, BMP #### [facility] ([id number]) [address], [address] [place] [address] CBC AND AUTO DIFFon 02-26-20 24 ABSOLUTE BASOPHIL 0.2 X10E9/L Normal 0.0-0.2 [facility] Comment on above: Performed By: #### C FELIX, BMP #### [facility] ([id number]) [address], [facility] [address] [place] [address] Basophils/100 WBC (Bld) 1.0 % Normal [facility] Comment on above: Performed By: #### C BCA, BMP #### [facility] ([id number]) [address] [address] [place] [address] Erythrocyte distribution width (RBC) [Ratio] 15.5 % High 11.5-15.0 [facility] Comment on above: Performed By: #### C BCA, BMP #### [facility] ([id number]) [address] [place] [address] Hematocrit (Bld) [Volume fraction] 42.7 % Normal 35-47 [facility] Comment on above: Performed By: #### C BCA, BMP #### [facility] ([id number]) [address], [address] [place] [address] Hemoglobin (Bld) [Mass/Vol] 14.5 g/dL Normal 11.7-15.5 [facility] Comment on above: Performed By: #### C BCA, BMP #### [facility] ([id number]) [address], [address] [place] [address] Lymphocytes (Bld) [#/Vol] 3.3 10*3/uL Normal 1.0-3.5 [facility] Comment on above: Performed By: #### C BCA, BMP #### [facility] ([id number]) [address], [address] [place] [address] Lymphocytes/100 WBC (Bld) 19.0 % Normal [facility] Comment on above: Performed By: #### C BCA, BMP #### [facility] ([id number]) [address], [address] [place] [address] MCH (RBC) [Entitic mass] 33.0 pg Normal 27-34 [facility] Comment on above: Performed By: #### C BCA, BMP #### [facility] ([id number]) [address], [address] [place] [address] MCHC (RBC) [Mass/Vol] 34.0 g/dL Normal 32-36 [facility] Comment on above: Performed By: #### C BCA, BMP #### [facility] ([id number]) [address], [address] [place] [address] MCV (RBC) [Entitic vol] 97 fL Normal 80-100 [facility] Comment on above: Performed By: #### C BCA, BMP #### [facility] ([id number]) [address], [address] [place] [address] Monocytes (Bld) [#/Vol] 0.7 10*3/uL Normal 0-0.9 [facility] Comment on above: Performed By: #### Veronica WASHINGTON, BMP #### [facility] ([id number]) [address], [address] [place] [address] Monocytes/100 WBC (Bld) 4.0 % Normal [facility] Comment on above: Performed By: #### C FELIX, BMP #### [facility] ([id number]) [address], [address] [place] [address] Neutrophils (Bld) [#/Vol] 13.4 10*3/uL High 1.5-6.6 [facility] Comment on above: Performed By: #### Veronica WASHINGTON, BMP #### [facility] ([id number]) [address] [place] [address] Platelet mean volume (Bld) [Entitic vol] 9.1 fL Normal 7-12 [facility] Comment on above: Performed By: #### Veronica WASHINGTON, BMP #### [facility] ([id number]) [address] [place] [address] Platelets (Bld) [#/Vol] 198 10*3/uL Normal 150-450 [facility] Comment on above: Performed By: #### Veronica WASHINGTON, BMP #### [facility] ([id number]) [address], [address] [place] [address] RBC COUNT 4.40 X10E12/L Normal 3.80-5.20 [facility] Comment on above: Performed By: #### Veronica WASHINGTON, BMP #### [facility] ([id number]) [address], [address] [place] [address] RBC morphology finding Nom (Bld) NORMAL Normal [facility] Comment on above: Performed By: #### C BCA, BMP #### [facility] ([id number]) [address], [address] [place] [address] SEG NEUTROPHIL 76.0 % Normal [facility] Comment on above: Performed By: #### Veronica BCA, BMP #### [facility] ([id number]) [address] [place] [address] WBC (Bld) [#/Vol] 17.6 10*3/uL High 4.0-11.0 [facility] Comment on above: Performed By: #### Veronica BCA, BMP #### [facility] ([id number]) [address] [place] [address] Coding Summary.on 02-11-2024 Coding Summary. RRLPRock86OTy8xZg+PG hlYWQ+PE 9RXTSeW97kpFDjnZ2rU6XFCSiGAs meLAGKUCyAZuGyhsEuRY1dwYKhQF Ju IC8+FD1sEZNoWadydIJim8X6kRT8 L47zwp0yZHuklEH3NSDiImCtsfxi l6lvvCr6CNncPkglPbLf SFFxmF04UGN2oD95Cf95uSTvlVFh r7uvmXd0ZgHeBRZbAYZ4gNjlVWdo t9HoEQRkF04ryLWbk5X5 VQUksAvihZRyPeIsyAN5qP0lVRsi paein3fmfvetSug7fq68uMLey0Y2 jGF2J7EtiwE9DOXdrZYz IhhkzUEJoA3picpox0mfacaoGqMk GJGqUZx4ZPr2DMUxfDpbYgWyGI09 NAF0XOPtqdZiL2PwWDYe hHbhOmY0m5E3Dy8FN0YGLrubQ1JS TUFSWTwvdGQ+RA27mw31U0AqMcsd Yhe1GACeQNO5vPN0eV0o NISxKRrio2X1fHM3P8HqcbNfyl5o t6muITVyZUzpB16ezLWgz1C2IFRl gRP3OQDbjBloDgRhpX54 Oyc+NSRqhRbop0QbZudnc8tqj7fa iXf9OtltMLJylbUblSyqYUR3w5Bw Dz4yXPAapLI9zOJ0gR0h SbTpNkJ5GXdpO263ToZmeCAnNren A82xX2FugKC+PIFlHst4RQQdtYha ZM4rK8SfZSIcimqmtYVx hIyuZY5cOBUqcrfqPAQpvM2bRYAf O1t9VaDmNiB7WMdmD6LiHOLmhlfe Ro70wT0xXiEpHoW7SYjs C1TdwoM3YBBicMWdSEjbTVI2B79f f8X1BKLjJOKsDAW4iHB8aQ0ziXda bjogbGVmdDsgdmVydGlj NFuwEHivV959MNLtxLuaGpZwRFlk ZyBEYXRlOiAgMDYvMjUvMjAyNDwv dGQ+ZKOhUST8oOqeKVUw lQHrHNryKy3kgKzceAdxTQ3pBWYj eerrHPStqX7oJPPyhITseMuyRS3k RWOuyiezl140WmTfOSW9 YNScuUJfB1VoaJ4bQhOxZYTgETEv D3MzeBWkDChoK330QXenXtL2LNAb leKfV8GwYYRngMibBnE0 d5W2Qu2Iy8UpqbjzY3MaxGVdAtQa HiunHYw0V4TgXgwhoOI+CP64PGCt YN23IMr3IWM6vPzbRGfz TTXbW6TsfZ4jMeUkLXUfBUEpFss+ PHRhYmxlIHdpZHRoPScxMDAlJyBz sGzlLH6eQe8zGAOmCUAi bNaprOUbJfWxw3grFHClVMbtFO6t cDhgJ7GahID9IYPbu9h9Kk43C24i Q6EcsIG+CGRrdXO3mTV5 xL4xZeShCuU0TVwpC179BtUkmZDw Hbikt2gin0lxbFd0NbQ7KBVyseWo dOskSUF2t1FlEn32E24n UKhcXJVwSEEoBMBdCJXtyWgcmh2h dO8dHs2+HEOqqNA2vYG8kC8oQzYg PyA3HMbiE941LmVfgABn Svoxy7uur5ewkDy7AiVrOXTwavVb tDtkWRL6b0NnQf90J4GuxZdbq9Zc Jrw2al05jFYny6T2nTG7 S6GbTONzucoukDExuVfcZI0iGANq sytxIUFxwI5nYQKeX9t8SvDtHoT9 MVndA5TtbiX3XOEuhZKn UKZtxBUGsL0jntoyo2wsykmtOrLa NKLoNPs8YJd7CFQvnUrlJpMhMYX6 OtC2GLQ9rSSbxC3qmKko bfftyX4bTlz+KON6aDRnfVGHPH2p OjwvdGQ+NDBfVDK2sIpmKQpoWENd sL2xLMUwO2l1NrPdNkU7 EYkhP0HifwU4OCVvkNNzFTIgmTBH wB6ruhvcs2kjdyvhJpEtKYIlMGp7 UOi7IZLfeGzhThBxSSB6 FvK7UQC8eXBroS8ieEuoxlzzqS9a Oyc+NasnnLxeGCB1UNl8W8CkElb1 RGKgnFugHI4ixWGhTDwq Xx8jmJnzrMfoFP1nAHOzajjxl619 NkQos4zcXJMudKZhSLjxMMG5J46l h5N5NJTkVSPlJVH2dXT7 eZ4dkFaohvgitASmmJxihzDpnPvv EHngOFsxI941ITLgePsdGjFdYTn9 V8MlStm5CWOwiKqjLH3m sDMxJIrdBf8vpYrvrIspBO0zWMKu ivqoh580NqAoz6riXCHvqXBjMFzl RLH2K44gz1T6FZOmLVRv ULT9bRN8kV6dgOokptjaaMUywPcr qpFweCdtGPafUTvvZ008TDKejIpz PqSmyGe1B9CySif1SXTh pSxpSU4aaOQmVZflRm7ecChqyElo YZ8aVOEqspops963TjIdb0fsJPEn oCAjRGnjALU5N97sb6J4 JGPmEHRyOVK1mOK2iG9bpNjgxbpc wUKnmWafxcSahAdhFKmsRUziI253 IHRvcDsnPlBhdGllbnQg ZFlsKVt3K7NoPbvlgJJ+MN62EQBd YD06sSVtjBRsu6jxaLn2QyJyBMXy IQL3sMddYIpgm9SiFJJz P81caBEpd1X7SYOfeRxfqIZbOaUc vQR6nD9vSOlkjacdk6qkmwngQcer m6kfob23vK25V94gXWdk HKSdOGOrMAMxKUOlvWasfn0cxG5b Ii8+VKCtyID4vHT5iY4uKHMuAmR7 GJiuG302RwRjbUUrMszu b2dzd5iycPj1SsZ3AWOwapLdfOtf JGN7j1LhOp95B43uGNhzMZFhIEWe ZINmHXAtiGlipg7muU8k Ii8+TYXmwVA4hQP2dP7aWcVnNoJ7 RFjzU745DtFjgTCvXwsjP55eY3Mm dXA+BCJhOzx7FTGocOqg OH4ayILeJDeuTx9tIJR4AcDgLtAt MSqiL5WqESWrelthptatfDS3FFJo FKUiiW93Qj7ukJhfQSUg zQVFiS9ptjcpg3jintagJsRpGDEo DTk6ACk7JGKpwVcmHqTmHNL5LnB0 DSY8pCQswO0knTaujung bN6dU5DaPDNpftcnJg60lD9rRsOa LyH0QFlbTho+TBNKQCCMYGYAZF9Y NAI2N6GqDpt1QNVxcSqy II6erSEvUAxhSg4ouBzipHnbQW9o YIHpliyhKAQyyE6sHBZnjSFptWzp IU8fXQTxvkacz535DkNg IRO9WPBnkYBnW0BrfK0gKrFwLKMf HNXrN9HgxGNrKMsbH171HVeyCaH7 JSOjhaIuY8TpOZEjuRlw JxX6m9H7Mw9dPi0wLV4hZNnhPE09 UO95sTZte4G4tDL0W1IyFCKzxwkq sookmTP3PIQuXBBhsU68 vQPxLWjoAg8vu7O9o152PUIqFJHc wO44Ky9pnOjnJFDctAIOaT5ajnum e6ctstiySkRnQMBjOJb4 BOc2NWAidUarPfFhJJW0RaD9CWA7 gZHbwR6jkMnkwtsmpH9mPzf+NTMg UJZnklV8K6XbZfk8JDIo zTtvAE6qaYVbCJycXl8hwOlrlGmp KZ3oGELhpitlEVZtgO4tVISqaOBz sWwbNP1oTVKjkqiti982 XqSwCRK8EBEcqUAcD2WjfE8dUfAj HRKpNDQtP8ZhoSHfLUlyO739KAdu WqN8FLWhwoAaN6UcJUUb oVerKnN8s1X1Me7UAA3agAE4Y0Yg Han6OWXciIhyBC8adHFeVPbqSr1g gNwbmPwhDK7yHMVohnjk TRTwfD1jUIFpsINvlKcvJC4eUUYb qxpet165KeThXVK5IUAkfHDqC6Az rJ8xTvKbJLWuOCFsB5Iv dJJuWIcoD879ONjwWqQ7YTApwrFb E4OxACYvoWnoPsQ6t0J7Tv5MdDPr KTRbUD82XM76OR10L7Kc PjwvdGFibGU+PHRhYmxlIHdpZHRo GIkwXXXcDcUwcZodQG2yZb1nTFNl ZNZnhQpibVNwSoZdy2ij YDKhNHglCQ7koMlnG7SezFT5RDRm j1h9Eh05I42aO9MjrBT+PGNvbCB3 aYL8lP1kAoCzRtJ6ABoy B410BjQmnFAlOgtdk9vvg7kjiOu1 PsSrWKLeelTsaPwxTSL3d1JaOx42 B93sDVlwSYTlBWIiDUTu VFWykMplec2udK0mNf0+PGNvbCB3 jUE6eL3jMcZoXgV7OBtpZ399KqPb pOTfJbhpJ32hS8YvbOE+ AQNlPhx2XAElrUjhBE4psHQgKPjm An4wFBZ6NoScTuAgJJdjP7ZrISOz klrluizkqSL1BOOvTYAb sC63Rg4ipEibPw9vRZEtBIY5PUQm cWGgD3HtwC9rCbXcPJGoESOeZ2Gp dIPbQYstI299ROszQuD4 DBWdquZdN3KtQMUviGehQvV5i5I0 Dm1EbKoafQKqGD7gAvGlYZj3H6Hy Tqx3CHImhNlmGU5roAHv EHkoRw8wzQwevPqlOA2oGCGonjqm i122BcJhw5upENCmtUZgIGkgBDW6 P88nm3L1GRZhIMQnYDM6 eNM8pS4qjQewsawzaDJzkQgemxJh yDxlOMmwBIquM112XNXrmMmyVdSB Vhj8X8NoOhp9WJQkcGwo OH6wzAGlUQcnBp6drAenlBguBP9o RZRzvfrzp086XzZbo0dyDRKjnZOe GApfCMT9D32ja0H6ZREn AXEvLVN1cOP2rP9xjGshzderpVWb dBplxoUgwLcxDGoxCDpnH784TOSv uDtzWf1VEem1O6JaZqn2 RGTjpSzyHW2vxDSgYHgnHc9smWav vGmnHM9gCOEvwowrj792PqOdb8nf FHHleLLrNQqlVCJ1X28p s4M2ISLjNSNeXVU3tQQ3pR2zhVoo bjogbGVmdDsgdmVydGljYWwtYWxp A984CSFqrOgiOeVweINm OjwvdGQ+BG03rv91C0RiVrurEse2 RHPfMHP8mOF0aE5oWESnWDnfq9X5 ePU6F7AucqQtoc0wt1tx AXWdYTwcE44vv (more content not included)... Normal [facility] XR KNEE LT 3 VWSon 4 XR [...] Joseph MD on 01/31/2024 6:38 PM Normal [facility] Consent for Treatmenton 01-17 Consent for Treatment [id number]#1.00TIFF Normal [facility] Heart [facility] Vascular Office/Cl inic Noteon [...] 4. Normal estimated pulmonary artery pressure. [1] [facility] with Dr. Beltran on 03/03/2020: CONCLUSIONS: [...] with voice recognition artificial intelligence software, specifically [employer], [employer] and or [employer]. Substitutions may have occurred due to the [...] stress Nausea (more content not included)... Normal [facility] Comment on above: Result Comment: Elec tronically Signed By: En Carmen PA-C\missy\Date and Time Signed: 01/30/24 14:40 EDT Physician Orderon 01-30-2024 Physician Order [id number]#1.00TIFF Normal [facility] MR ELBOW LT WO CONTon 2023 MR [...] Muir MD on 01/27/2024 11:30 AM Normal [facility] CT ABDOMEN AND PELVIS W CONT [...] Herman MD on 01/24/2024 6:29 AM Normal [facility] CREATININEon 01-20-2024 Creatinine [Mass/Vol] 0.94 mg/dL Normal 0.40-1.00 [facility] Comment on above: Result Comment: METH OD TRACEABLE TO IDMS STANDARD Performed By: #### C RT #### [facility] ([id number]) [address], [address] [place] [address] GFR/1.73 sq M.predicted among non-blacks MDRD (S/P/Bld) [Vol rate/Area] 73 mL/min/{1.73_m2} Normal >59 [facility] Comment on above: Result Comment: Reported eGFR is based on the CKD-EPI 2020 equation that does not use a race coefficient. Performed By: #### C RT #### [facility] ([id number]) [address], [address] [place] [address] Consent for Treatmenton 12-18 Consent for Treatment [id number]#1.00TIFF Normal [facility] Consultation Noteon 01-15-20 24 Consultation Note Patient: JESSIE HERRERA Age: 53 years Sex: Female : 1970 Associated Diagnoses: None Author: Artie NORRIS Cady Subjective Chief complaint 01/15/2024 8:16 EDT low [...] 4 week(s), 4 patch(es), Refill(s) 0, [facility], 163, cm, 01/15/24 8:23:00 EDT, Height/Length Dosing, 75.4, kg, 01/15/24 8:23:00 EDT, Weight Dosing Imodium A-D 2 mg oral tablet: See Instructions, PRN Diarrhea, 2 mg Oral BID and 2mg after each loose stool, # 120 tab(s), Refills(s) 6, Pharmacy: [facility], 162, cm, 03/30/20 10:05:00 EDT, Height/Length Dosing, 74.2, kg, 03/30/20 10:05:00 EDT, Weight Dosing carvedilol 25 mg Tab: 25 mg = 1 tab(s), Oral, BID, # 180 tab(s), Refills(s) 3, Pharmacy: [facility], 163, cm, 07/25/23 10:41:00 EST, Height/Length Dosing, 80.8, kg, 07/25/23 10:47:00 EST, Weight Dosing diltiazem CD 120 mg/24 hours Cap-ER: 120 mg = 1 cap(s), Oral, Daily, # 30 cap(s), Refills(s) 5, Pharmacy: [facility], 163, cm, 01/01/24 11:13:00 EDT, Height/Length [...] Refills(s) 0, Proph (more content not included)... [facility] Comment on above: Result Comment: Elec tronically Signed By: Artie NORRIS, Cady\.br\Date and Time Signed: 01/15/24 08:43 EDT Office/Clinic Note-Physician on 01-15-2024 Office/Clinic Note-Physician [id number]#1.00TIFF [facility] Patient Correspondenceon Patient Correspondence [id number]#1.00TIFF [facility] Patient Correspondence [id number]#1.00TIFF [facility] Patient History Officeon Patient History Office [id number]#1.00TIFF [facility] Interdisciplinary Note - Soc ial Workeron 01-06-2024 Interdisciplinary Note - [employer] Supervisor Consult for positive depression screen received. SW made a tc to patient and left a message with contact information for patient to call back. SW will remain available. [facility] Consent for Treatmenton 12-17 Consent for Treatment [id number]#1.00TIFF [facility] Consultation Noteon 01-01-20 24 Consultation Note Patient: JESSIE HERRERA Age: [...] [facility] She is [facility] [...] BID, # 180 tab(s), Refills(s) 3, Pharmacy: [facility], 163, cm, 07/25/23 10:41:00 EST, Height/Length Dosing, 80.8, kg, 07/25/23 10:47:00 EST, Weight Dosing diltiazem CD 120 mg/24 hours Cap-ER: 120 mg = 1 cap(s), Oral, Daily, # 30 cap(s), Refills(s) 5, Pharmacy: [facility], 163, cm, 07/05/23 15:45:00 [...] Refills(s) 0 (more content not included)... Normal [facility] Comment on above: Result Comment: Elec tronically Signed By: Artie NORRIS, Cady\.br\Date and Time Signed: 01/01/24 11:24 EDT Lab Reportson 01-01-2024 Lab Reports [id number]#1.00TIFF Normal [facility] Office/Clinic Note-Physician on 01-01-2024 Office/Clinic Note-Physician [id number]#1.00TIFF Normal [facility] Orders Officeon 01-01-2024 Orders Office [id number]#1.00TIFF Normal [facility] Patient Correspondenceon Patient Correspondence [id number]#1.00TIFF Normal [facility] Patient Correspondence [id number]#1.00TIFF Normal [facility] Patient History Officeon Patient History Office [id number]#1.00TIFF Normal [facility] RAD - CT Reporton 01-01-20[address] RAD - CT Report [id number]#1.00TIFF Normal [facility] Ambulatory Visit Summaryon 0 12-31-2023 Ambulatory Visit Summary ROCK HERRERA :1970 Visit Date:12/31/2023 Ambulatory Visit Instructions [...] POLLY MARIANO PA-C Where: [facility] Renetta Normal [facility] Patient Educationon 12-31-19 Patient Education [...] stimulation). ? For women, using a medical orderly to prevent urine leaks. This is a [...] urine. ? (more content not included)... Normal [facility] Urology Office/Clinic Noteon 12-31-2023 Urology Office/Clinic Note [...] CT AP wo con [place] [facility] [place] A few tiny nonobstructing R renal [...] Contact Information YUDY NORRIS, POLLY Kaminski, URL [address] [place] [address] Additional Instructions: 1 year Patient Education Urinary [...] (01/17/2023), Víctor (more content not included)... Normal [facility] Comment on above: Result Comment: Elec tronically Signed By: POLLY MARIANO PA-C\.br\Date and Time Signed: 12/31/23 13:21 EDT\.br\Electronically Co-Signed By: Violet Bangura.br\Date and Time Co-Signed: 12/31/23 13:14 EDT CHEMISTRYOrdered By: Jordan Ritchie on 12-11-2023 POC Device SN [id number] 1 Invalid Interpretation Code [facility] Subsection POC User ID [id number] 1 Invalid Interpretation Code [facility] [place] Subsection POC Username ELEANOR FREDIS Invalid Interpretation Code [facility] [place] Subsection Capillary Glucose POCOrdered By: Jordan Sinclair on 12-11-2023 Glucose [Mass/Vol] 154 mg/dL High 55-99 [facility] [place] Subsection Comment on above: Performed By: #### 2 [id number] ####[facility] [address] [place] [address] Consent for Procedure/Surger yon 12-11-2023 Consent for Procedure/Surgery [id number]#1.00TIFF Normal [facility] Consent for Treatmenton 11-18 Consent for Treatment [id number]#1.00TIFF Normal [facility] Discharge Instructionson Discharge Instructions [id number]#1.00TIFF Normal [facility] IntraOperative Documentson 0 12-11-2023 IntraOperative Documents [id number]#1.00TIFF Normal [facility] IntraOperative Documents [id number]#1.00TIFF Normal [facility] Main OR Intraoperative Recor don 12-11-2023 Main OR Intraoperative Record IntraOp Document Type FTPM Summary Primary Physician: Andrew Eid DO Finalized Date/Time: 12/11/23 09:27:33 Pt. Name: ROCK HERRERA Vasquez/Sex: 1970 Female Med Rec #: [id number] Physician: Andrew Eid DO Financial #: [id number] Pt. Type: P Room/Bed: / Admit/Disch: 12/11/23 08:00:11 - Institution: Case Times FTPM Entry 1 Patient Times In Room 12/11/23 09:21:00 Out Room 12/11/23 09:28:00 Procedure Times Start 12/11/23 09:24:00 Stop 12/11/23 09:27:00 Anesthesia Times Last Modified By: Juma LAZO, Teressa Grewal 12/11/23 09:27:22 Case Attendance FTPM Entry 1 Entry 2 Entry 3 Case Attendee Andrew Eid DO, RN, Teressa Jones RNKatherine Role Performed Surgeon - Primary Taxi Cab Driver - Primary Scrub - Primary Time In 12/11/23 09:21:00 12/11/23 09:21:00 12/11/23 09:21:00 Time Out 12/11/23 09:28:00 12/11/23 09:28:00 12/11/23 09:28:00 Procedure LUMBAR EPIDURAL STEROID LUMBAR EPIDURAL STEROID LUMBAR EPIDURAL STEROID INJECTION(.) INJECTION(.) INJECTION(.) Comments Last Modified By: Teressa Dennison RN, RN, Teressa Joyce RN 12/11/23 09:27:22 12/11/23 09:27:22 12/11/23 09:27:22 Entry 4 Case Attendee Gen Lazo Role Performed Retirement Consultant Time In 12/11/23 09:21:00 Time Out 12/11/23 [...] Antibiotic No Time Out Teressa Dennison RN, Fariba Jones RN, Stanton Hunter DO, Bradford A., Hargrove, Bryce Time Out Complete 12/11/23 09:22:00 Outcomes Met? [...] and tissue Entry 1 Skin Integrity Intact, [place], Warm, and Skin Abnormality No Dry Outcomes [...] Juma Moreira (more content not included)... Normal [facility] Main OR Preoperative Recordo n 12-11-2023 Main OR Preoperative Record Holding Area Document Type FTPM Summary Primary Physician: Andrew Eid DO Finalized Date/Time: 12/11/23 08:39:56 Pt. Name: ROCK HERRERAO.B./Sex: 1970 Female Med Rec #: [id number] Physician: Andrew Eid DO Financial #: [id number] Pt. Type: P Room/Bed: / Admit/Disch: 12/11/23 [...] Pain Comment: 05/28 low back Marked By: stanton Location: lumbar Availability Equipment, X-Ray Verified: Does [...] By: Odette Quintana RN 12/11/23 08:39 Normal [facility] Patient Correspondenceon Patient Correspondence [id number]#1.00TIFF [facility] Orders Officeon 11-22-2023 Orders Office [id number]#1.00TIFF [facility] Insurance Correspondence Off iceon 11-21-2023 Insurance Correspondence Office [id number]#2.00TIFF Normal [facility] Outside Records Officeon Outside Records Office [id number]#1.00TIFF Normal [facility] Consent for Treatmenton 10-18 Consent for Treatment [id number]#1.00TIFF Normal [facility] Consultation Noteon 11-06-19 Consultation Note Patient: JESSIE [...] She has undergone physical therapy at [facility] with out improvement. In fact, [...] MVP (mitral valve prolapse) / SNOMED CT 5618781184 / Confirmed Bipolar disorder / SNOMED CT 71304132 / Confirmed COPD (chronic obstructive pulmonary disease) / SNOMED CT 44536601 / Confirmed Vertigo / SNOMED CT 6184317615 / Confirmed Chronic pain / SNOMED CT 814137488 / Confirmed Osteoarthritis / SNOMED CT 7361849598 / Confirmed Hyperlipidemia / SNOMED CT 96436278 / Confirmed Chronic migraine / SNOMED CT 61398281 / Confirmed Sleep apnea / SNOMED CT 085530750 / Confirmed pt uses CPAP does not use cpap any longer Gastritis / SNOMED CT 1223230 / Confirmed Irritable bowel syndrome / SNOMED CT 38357252 / Confirmed Hypertension / SNOMED CT 4959021866 / Confirmed Dizziness / SNOMED CT 4202267108 / Confirmed Tarsal tunnel syndrome of left side / SNOMED CT 40749052 / Confirmed Diabetes / SNOMED CT 769937836 / Confirmed Personality disorder / SNOMED CT 32024030 / Confirmed TMJ arthralgia / SNOMED CT 891739759 / Confirmed Smoker / SNOMED CT K910ZZ0M-[id number]-KZR4 D6417EW3 / Confirmed Added secondary to documentation in Social History. GERD (gastroesophageal reflux disease) / SNOMED CT 026200962 / Confirmed History of kidney stones / SNOMED CT 3783467120 / Confirmed Mixed incontinence urge and stress / SNOMED CT 35243099 / Confirmed Urinary frequency / SNOMED CT 983423989 / Confirmed Other urethral stricture, female / SNOMED CT 804402062 / Confirmed Incomplete emptying of bladder / SNOMED CT 760371637 / Confirmed Feeling of incomplete bladder emptying / SNOMED CT 828161745 / Confirmed Urge incontinence / SNOMED CT 071909899 / Confirmed Dysuria / SNOMED CT 17304713 / Confirmed Change in bowel habits / SNOMED CT 96837278 (more content not included)... [facility] Comment on above: Result Comment: Elec tronically Signed By: Cady Alva PA-C\.br\Date and Time Signed: 11/06/23 10:24 EDT\.br\Electronically Co-Signed By: Andrwe Eid DO.rosi\Date and Time Co-Signed: 11/06/23 15:19 EDT HIPAA Forms Officeon 024 HIPAA Forms Office [id number]#1.00TIFF [facility] Legal Correspondence Officeo n 11-06-2023 Legal Correspondence Office [id number]#1.00TIFF [facility] Legal Correspondence Office [id number]#1.00TIFF Normal [facility] Office/Clinic Note-Physician on 11-06-2023 Office/Clinic Note-Physician [id number]#1.00TIFF Normal [facility] Patient Correspondenceon Patient Correspondence [id number]#1.00TIFF Normal [facility] Patient Correspondence [id number]#1.00TIFF Normal [facility] Patient Correspondence [id number]#1.00TIFF Normal [facility] Patient Correspondence [id number]#1.00TIFF Normal [facility] Patient Correspondence [id number]#1.00TIFF Normal [facility] Patient History Officeon Patient History Office [id number]#1.00TIFF Normal [facility] Patient History Office [id number]#1.00TIFF Normal [facility] Physician Orderon 11-06-2023 Physician Order [id number]#1.00TIFF Normal [facility] Radiology Outside Office Lever Operator yon 11-06-2023 Radiology Outside Office Copy [id number]#1.00TIFF Normal [facility] Outside Records Officeon Outside Records Office [id number]#1.00TIFF Normal [facility] Referrals Officeon Referrals Office [id number]#1.00TIFF Normal [facility] Formson 10-01-2023 Forms [id number]#1.00TIFF Normal [facility] Screenson 09-18-2023 Screens [id number]#1.00TIFF Normal [facility] Ambulatory Visit Summaryon 0 09-17-2023 Ambulatory Visit Summary ROCK HERRERA :1970 MRN:[id number] Visit Date:09/17/2023 Ambulatory Visit [...] POLLY MARIANO PA-C Where: [facility] Patient Educationon 09-17-19 24 Patient Education [...] these instructions at home: Medicines ? Take kiyy-cqt-vlbmtfr and prescription medicines only as told by [...] the blood stops without treatment. ? Take myxw-sli-shdzmem and prescription medicines only as told by your health care provider. ? Drink enough fluid to keep your urine pale yellow. This information is not intended to replace advice given to you by your health care provider. Make sure you discuss any questions you have with your health care provider. Document Revised: 04/05/2021 Document Reviewed: 04/05/2021 [employer] Patient Education ? 2022 [email or web address]. [facility] Retail - Clinical Noteon Retail - Clinical Note [id number]#1.00TIFF [facility] Retail - Clinical Note [id number]#1.00TIFF [facility] Urology Office/Clinic Noteon 09-17-2023 Urology Office/Clinic [...] (unsure if refill ran out?) [facility] [place] CC: flank pain and trouble [...] is 6.2. -Begin [facility]. Rx [facility]. f/u 3 mos to ensure working well. -Supply order provided for pads/incontinence supplies Ordered: E&M of Est. Patient Moderate 30-39 Min 26482 Urnls Dip Stick Auto w/o Microscopy POC 97954 2. Fecal incontinence (R15.9: Full incontinence of feces) Hx of IBS. Continues having complications with diarrhea and fecal incontinence follows with PCP used to follow with Dr. Little CAZARES but he retired Ordered: E&M of Est. Patient Moderate 30-39 Min 89021 3. OAB (overactive bladder) (N32.81: Overactive bladder) see #1 Ordered: E&M of Est. Patient Moderate 30-39 Min 89911 4. Gross hematuria (R31.0: Gross hematuria) S/p [...] E&M of Est. Patient Moderate 30-39 Min 22207 5. Kidney stones (N20.0: Calculus of kidney) S/p lithotripsy 06/06/15. 24hr urine 10/25/19 done for unrelated reason (ordered by external provider): Total volume 2,525mL. CT AP wo con 10/20/22 [facility] [place] A few tiny nonobstructing R renal [...] E&M of Est. Patient Moderate 30-39 Min 13370 Orders: solifenacin, 10 mg = 1 tab(s), Oral, Daily, # 90 tab(s), Refills(s) 3, Pharmacy: [facility], 163, cm, 09/17/23 8:25:00 EST, Height/Length Dosing, 81, kg, 09/17/23 8:25:00 EST, Weight Dosing Follow-up With When Contact Information YUDY NORRIS, POLLY Kaminski, URL [address] [place] [address] [phone] Additional Instructions: 3 mos (restart med) Patient Education Hematuria, Adult Documentation record (more content not included)... Normal [facility] Comment on above: Result Comment: [...] Dodson MD on 08/05/2023 5:33 PM Normal [facility] XR KNEE LT 4V or >on [...] NDIAYE Date: 2022-11-29 16:44 Normal [facility] CHEMISTRYOrdered By: Lab ROP User on 11-21-2022 Glucose [Mass/Vol] 91 mg/dL Normal 55 - 99 mg/dL [facility] [place] Subsection Comment on above: Result Comment: Dahlia sneha Meter POC Device SN [id number] Invalid Interpretation Code [facility] Sub[place] POC User ID [id number] Invalid Interpretation Code [facility] POC Username BILLY HOGUE Invalid Interpretation Code [facility] Subsection CHEMISTRYOrdered By: SYSTEM SYSTEM on 10-20-2022 Anion gap [Moles/Vol] 13 mmol/L Normal 6 - 16 mEq/L [facility] Remisol Calcium [Mass/Vol] 9.5 mg/dL Normal 8.9 - 11. 1 mg/dL [facility] Chloride [Moles/Vol] 99 mmol/L Low 101 - 111 mmol/L [facility] CO2 [Moles/Vol] 26 mmol/L Normal 21 - 31 mmol/L [facility] Creatinine [Mass/Vol] 1.1 mg/dL Normal 0.5 - 1.3 mg/dL [facility] Remisol GFR/1.73 sq M.predicted among blacks MDRD (S/P/Bld) [Vol rate/Area] mL/min/1.73 m2 Normal >=59mL/min /1.73 m2 [facility] Chem S GFR/1.73 sq M.predicted among non-blacks MDRD (S/P/Bld) [Vol rate/Area] 52 mL/min/1.73 m2 Low >=59mL/min /1.73 m2 [facility] Chem S Glucose [Mass/Vol] 127 mg/dL Normal 55 - 199 mg/dL [facility]isol Potassium [Moles/Vol] 4.0 mmol/L Normal 3.5 - 5.3 mmol/L [facility]isol Sodium [Moles/Vol] 134 mmol/L Low 135 - 145 mmol/L [facility] Urea nitrogen [Mass/Vol] 7 mg/dL Normal 5 - 21 mg/dL [facility] Urea nitrogen/Creatinine [Mass ratio] 6 mg/mg Low 10 - 20 [facility] HEMATOLOGYOrdered By: SYSTEM SYSTEM on 10-20-2022 Basophils/100 WBC (Bld) 1.0 % Normal 0.0 - 2.0 % [facility] HemeAutoSS Basophils/Leukocyte s Auto (Bld) [Pure # fraction] 0.1 E9/L Normal 0.0 - 0.2 E9/L [facility] HemeAutoSS Eosinophils/100 WBC (Bld) 0.4 % Normal 0.0 - 8.0 % [facility] HemeAutoSS Eosinophils/Leukocy ellen Auto (Bld) [Pure # [...] - 7.5 E9/L [facility] HemeAutoSS HEMATOLOGYOrdered By: Shhanaz Diamond on 10-20-2022 Erythrocyte distribution width (RBC) [...] 12.1 E9/L High 4.0 - 11.0 E9/L [facility] HemeAutoSS URINALYSISOrdered By: Osito Henderson on 10-20-2022 [...] AM) Normal Negative [facility] UA Auto SS [place].plasma/Lith ium.RBC (Bld) [Mass ratio] 0-3 /HPF Normal [...] [facility] UA Auto SS Urobilinogen Qn (U) 0.5185626 {Gareth'U}/dL Normal 0.0 - 1.0 EU/dL [facility] UA Auto SS WBC Auto Ql (U) 1+ *ABN* (10/20/22 11:40 AM) Invalid Interpretation Code Negative [facility] UA Auto SS WBC LM.HPF (Urine sed) [#/Area] 0-5 /HPF Normal 0-5/HPF [facility] UA Auto SS MG MAMM DIAGNOSTIC 3D TAJ CA Don 09-10-2022 MG MAMM DIAGNOSTIC 3D TAJ CAD Patient: ROCK HERRERA. Exam Date: 09/10/2022 : 1970 Gender:F Ordering : DR DAVID VILLALOBOS . Admission #: [id number] Family : Order #: [id number] CLICK HERE TO VIEW EXAM RADIOLOGY REPORT [...] ovarian cancer at age 60. LOCATION: [facility] BREAST COMPOSITION: Heterogeneously dense,which may obscure [...] M.D. on 09/10/2022 at 13:54 Normal [facility] US BREAST LEFT LIMITEDon US BREAST LEFT LIMITED Patient: ROCK HERRERA Exam Date: 09/10/2022 : 1970 Gender:F Ordering : DR DAVID VILLALOBOS . Admission #: [id number] Family : Order #: [id number] CLICK HERE TO VIEW EXAM RADIOLOGY REPORT [...] ovarian cancer at age 60. LOCATION: [facility] BREAST COMPOSITION: Heterogeneously dense,which may obscure [...] M.D. on 09/10/2022 at 13:54 Normal [facility] XR DEXA BONE DENSITYon 08-06 XR [...] DELORES ROACH Date: 2022-08-06 14:11 Normal [facility] XR CHEST 2 Von 07-04-2022 XR [...] NICOLE ROJAS Date: 2022-07-04 14:11 Normal [facility] XR KNEE RT 4V or >on [...] NICOLE ROJAS Date: 2022-07-03 18:12 Normal [facility] CBC AUTO DIFFon 04-30-2022 BASO # 0.1 103/ul Normal 0.0-0.1 [facility] Comment on above: Performed By: #### C BC ####[facility] [address] [place], [place] [address]SbDanica Taylor Basophils/100 WBC (Bld) 0.7 % Normal 0.2-2.0 [facility] Comment on above: Performed By: #### C BC ####[facility] [address] [place] [id number]. Soo Taylor EO # 0.1 103/ul Normal 0.0-0.7 [facility] Comment on above: Performed By: #### C BC ####[facility] [address] [place] [address]Dr. Soo Taylor Eosinophils/100 WBC (Bld) 0.4 % Critically low 0.9-7.0 [facility] Comment on above: Performed By: #### C BC ####[facility] U[address] [place], [place] [address]Dr. Soo Taylor Erythrocyte distribution width (RBC) [Ratio] 15.1 % Critically high 11.0-15.0 [facility] Comment on above: Performed By: #### C BC ####[facility] [address] [place], [place] [address]Dr. Soo Taylor Hematocrit (Bld) [Volume fraction] 43.4 % Normal 36.0-48.0 [facility] Comment on above: Performed By: #### C BC ####[facility] [address] [place], [place] [address]Dr. Soo Taylor Hemoglobin (Bld) [Mass/Vol] 14.4 g/dL Normal 12.0-16.0 [facility] Comment on above: Performed By: #### C BC ####[facility] [address] [place], [place] [address]Dr. Soo Taylor IG # 0.06 10e3/ul Critically high 0.00-0.03 [facility] Comment on above: Performed By: #### C BC ####[facility] [address] [place], [place] [address]Dr. Soo Taylor IG % 0.4 % Normal 0.0-0.5 [facility] Comment on above: Performed By: #### C BC ####[facility] [address] [place], [place] [address]Dr. Soo Taylor LYMPH # 5.4 103/ul Critically high 1.2-3.8 [facility] Comment on above: Performed By: #### C BC ####[facility] [address] [place] [id number]. Soo Brandon Lymphocytes/100 WBC (Bld) 36.6 % Normal 20.5-60.0 [facility] Comment on above: Performed By: #### C BC ####[facility] [address] [place] [id number]. Ileneleah Taylor MANUAL DIFF REQ NO Normal [facility] Comment on above: Performed By: #### C BC ####[facility] [address]qr[address]lr[address] [place] [id number]. Ileneleah Taylor MCH (RBC) [Entitic mass] 29.4 pg Normal 26.7-34.0 [facility] Comment on above: Performed By: #### C BC ####[facility] [address] [place] [address]Dr. Soo Brandon MCHC (RBC) [Mass/Vol] 33.2 g/dL Normal 29.9-35.2 [facility] Comment on above: Performed By: #### C BC ####[facility] [address]zz[address] [place] [id number]. Soo Brandon MCV (RBC) [Entitic vol] 88.6 fL Normal 81.0-99.0 [facility] Comment on above: Performed By: #### C BC ####[facility] [address] [place] [id number]. Soo Taylor MONO # 0.9 103/ul Critically high 0.3-0.8 [facility] Comment on above: Performed By: #### C BC ####[facility] Moodktwwno[address] [place] [id number]. Soo Taylor Monocytes/100 WBC (Bld) 6.4 % Normal 1.7-12.0 [facility] Comment on above: Performed By: #### C BC ####[facility] [address] [place], [place] [address]Dr. Soo Taylor NEUT # 8.1 103/ul Critically high 1.4-6.5 [facility] Comment on above: Performed By: #### C BC ####[facility] [address]unt[address] [place] [id number]. Soo Taylor Neutrophils/100 WBC (Bld) 55.5 % Normal 43.0-75.0 [facility] Comment on above: Performed By: #### C BC ####[facility] [address] [place] [id number]. Soo Taylor Platelet mean volume (Bld) [Entitic vol] 9.9 fL Normal 9.5-13.5 [facility] Comment on above: Performed By: #### C BC ####[facility] [address] [place] [id number]. Soo Brandon PLT 326 103/ul Normal 150-450 [facility] Comment on above: Performed By: #### C BC ####[facility] [address] [place] [address]Dr. Soo Taylor RBC 4.90 106/ul Normal 4.20-5.40 [facility] Comment on above: Performed By: #### C BC ####[facility] [address]ff[address] [place] [id number]. Soo Taylor WBC 14.6 103/ul Critically high 4.0-11.0 [facility] Comment on above: Performed By: #### C BC ####[facility] Rlgbxcfvhv[address] [place] [id number]. Soo Taylor PROF CHEM 8 (BAS METB)on Anion gap [Moles/Vol] 12.9 mmol/L Normal [facility] Comment on above: Performed By: #### B MP ####[facility] [address]ron[address] [place] [address]Dr. Soo Taylor Calcium [Mass/Vol] 9.5 mg/dL Normal 8.5-10.1 [facility] Comment on above: Performed By: #### B MP ####[facility] [address]tl[address] [place] [id number]. Soo Taylor Chloride [Moles/Vol] 101 mmol/L Normal 98-107 [facility] Comment on above: Performed By: #### B MP ####[facility] Hrfmfudmk[address] [place] [id number]. Soo Taylor CO2 [Moles/Vol] 26.6 mmol/L Normal 21.0-32.0 [facility] Comment on above: Performed By: #### B MP ####[facility] [address]tnpflz[address] [place] [id number]. Soo Taylor Creatinine [Mass/Vol] 1.11 mg/dL Critically high 0.55-1.02 [facility] Comment on above: Performed By: #### B MP ####[facility] [address] [place] [address]Dr. Soo Taylor EGFR-AF BAHAMIAN >60 Normal >=60 [facility] Comment on above: Performed By: #### B MP ####[facility] [address] [place], [place] [address]Dr. Soo Taylor EGFR-NON AF BAHAMIAN 52 mL/min/1.73m2 Critically low >=60 [facility] Comment on above: Performed By: #### B MP ####[facility] Yskrd[address]mpq[address] [place] [phone]. Soo Taylor Glucose [Mass/Vol] 145 mg/dL Critically high 74-106 [facility] Comment on above: Performed By: #### B MP ####[facility] [address] [place] [address]Dr. Soo Taylor Potassium [Moles/Vol] 3.5 mmol/L Normal 3.5-5.1 [facility] Comment on above: Performed By: #### B MP ####[facility] Yaarlbs[address]vb[address] [place] [id number]. Soo Taylor Sodium [Moles/Vol] 137 mmol/L Normal 136-145 [facility] Comment on above: Performed By: #### B MP ####[facility] [address]cofe[address] [place] [address]Dr. Soo Taylor Urea nitrogen [Mass/Vol] 2.0 mg/dL Critically low 7.0-18.0 [facility] Comment on above: Performed By: #### B MP ####[facility] [address] [place], [place] [address]Zw. Soo Taylor Urea nitrogen/Creatinine [Mass ratio] 1.8 mg/mg Normal [facility] Comment on above: Performed By: #### B MP ####[facility] [address] [place], [place] [address]Gz. Soo Taylor TROPONIN, HIGH SENSITIVITYon 04-30-2022 HSTROP 5.1 pg/mL Normal 4.0-51.3 [facility] Comment on above: Result Comment: CUT- OFF POINTS HAVE BEEN ESTABLISHED BASED ON THE FOURTH UNIVERSAL DEFINITIONS OF MYOCARDIAL INFARCTION. THE UPPER REFERENCE LIMIT (URL) OF TROPONIN, DEFINED THE 99TH PERCENTILE OF cTnI DISTRIBUTION IN A REFERENCE POPULATION, HAS BEEN CONFIRMED THE DECISION THRESHOLD FOR [place] DIAGNOSIS. Performed By: #### H STROPN ####[facility] [address] [place], [place] [address]Sr. Soo Taylor HSTROP 4.6 pg/mL Normal 4.0-51.3 [facility] Comment on above: Result Comment: CUT- OFF POINTS HAVE BEEN ESTABLISHED BASED ON THE FOURTH UNIVERSAL DEFINITIONS OF MYOCARDIAL INFARCTION. THE UPPER REFERENCE LIMIT (URL) OF TROPONIN, DEFINED THE 99TH PERCENTILE OF cTnI DISTRIBUTION IN A REFERENCE POPULATION, HAS BEEN CONFIRMED THE DECISION THRESHOLD FOR [place] DIAGNOSIS. Performed By: #### H STROPN ####[facility] [address] [place], [place] [address]Rt. Soo Taylor MRI LSPINE WO CONon 04-06-20 [...] HERNANDEZ Date: 2022-04-06 18:18 Normal [facility] MRI KNEE RT WO CONon 022 MRI [...] HERNANDEZ Date: 2022-03-28 11:40 Normal [facility] MRI SHOULDER RT WO CONon MRI SHOULDER [...] MAMIE HERNANDEZ Date: 2022-03-28 09:09 Normal [facility] ER URINE PROFILEon 2 Bilirubin Ql (U) Negative Normal NEGATIVE [facility] Comment on above: Performed By: #### E RUR #### [facility] [address] [place] [address] Dr. Soo Taylor Clarity (U) CLEAR Normal CLEAR [facility] Comment on above: Performed By: #### E RUR #### [facility] [address] [place] [address] [address] [address] Soo Taylor Color (U) LT. YELLOW Normal YELLOW [facility] Comment on above: Performed By: #### E RUR #### [facility] [address] [place] [address] Dr. Soo RUFF A micrscopic examina tion will be performed if indicated. Normal [facility] Comment on above: Performed By: #### E RUR #### [facility] [address] [place] [address] Dr. Soo Taylor Glucose Ql (U) Negative Normal NEGATIVE [facility] Comment on above: Performed By: #### E RUR #### [facility] [address] [place] [address] Dr. Soo Taylor Hemoglobin Ql (U) Negative Normal NEGATIVE [facility] Comment on above: Performed By: #### E RUR #### [facility] [address] [place] [address] Dr. Soo Taylor Ketones Ql (U) Negative Normal NEGATIVE [facility] Comment on above: Performed By: #### E RUR #### [facility] [address] [place] [address] Dr. Soo Taylor LEUKOCYTES Negative Normal NEGATIVE [facility] Comment on above: Performed By: #### E RUR #### [facility] [address] [place] [address] Dr. Soo Taylor Nitrite Ql (U) Negative Normal NEGATIVE [facility] Comment on above: Performed By: #### E RUR #### [facility] [address] [place] [address] Dr. Soo Taylor pH (U) 5.5 [pH] Normal 5-9 [facility] Comment on above: Performed By: #### E RUR #### [facility] [address] [place] [address] Dr. Soo Taylor SPEC GRAVITY <=1.005 Abnormal 1.005-<=1. 025 [facility] Comment on above: Performed By: #### E RUR #### [facility] [address] [place] [address] Dr. Soo Taylor UA PROTEIN Negative Normal NEGATIVE/ TRACE [facility] Comment on above: Performed By: #### E RUR #### [facility] [address] [place] [address] [address] Soo Taylor UR MICRO IND NOT INDICATED Normal [facility] Comment on above: Performed By: #### E RUR #### [facility] [address] [place], [place] [address] Dr. Soo Taylor Urobilinogen Qn (U) 0.2 {Gareth'U}/dL Normal 0.2 - 1. 0 [facility] Comment on above: Performed By: #### E RUR #### [facility] [address] [place] [address] [address] Soo Taylor [facility] METABOLIC PANE [facility] 02-22-2022 Albumin [Mass/Vol] 4.2 g/dL Normal 3.6-5.1 [facility] Comment on above: Performed By: #### 7 600, 18199, 496 #### [facility] [place] [address] Airfield Engineer Officer: Arjun Ramos MD Albumin/Globulin [Mass ratio] 1.8 {ratio} Normal 1.0-2.5 [facility] Comment on above: Performed By: #### 7 600, 38748, 496 #### [facility] [place] [address] Airfield Engineer Officer: Arjun Ramos MD ALP [Catalytic activity/Vol] 143 U/L Normal 37-153 [facility] Comment on above: Performed By: #### 7 600, 00037, 496 #### [facility] [place] [address] Airfield Engineer Officer: Arjun Ramos MD ALT [Catalytic activity/Vol] 18 U/L Normal 6-29 [facility] Comment on above: Performed By: #### 7 600, 88096, 496 #### [facility] [place] [address] Airfield Engineer Officer: Arjun Ramos MD AST [Catalytic activity/Vol] 14 U/L Normal 10-35 [facility] Comment on above: Performed By: #### 7 600, 12672, 496 #### [facility] [place] [address] Airfield Engineer Officer: Arjun Ramos MD Bilirubin [Mass/Vol] 0.5 mg/dL Normal 0.2-1.2 [facility] Comment on above: Performed By: #### 7 600, 48079, 496 #### [facility] [place] [address] Airfield Engineer Officer: Arjun Ramos MD Calcium [Mass/Vol] 10.0 mg/dL Normal 8.6-10.4 [facility] Comment on above: Performed By: #### 7 600, 01796, 496 #### [facility] [place] [address] Airfield Engineer Officer: Arjun Ramos MD Chloride [Moles/Vol] 100 mmol/L Normal 98-110 [facility] Comment on above: Performed By: #### 7 600, 57493, 496 #### [facility] [place] [address] Airfield Engineer Officer: Arjun Ramos MD CO2 [Moles/Vol] 29 mmol/L Normal 20-32 [facility] Comment on above: Performed By: #### 7 600, 71358, 496 #### [facility] [place] [address] Airfield Engineer Officer: Arjun Ramos MD Creatinine [Mass/Vol] 0.86 mg/dL Normal 0.50-1.05 [facility] Comment on above: Result Comment: For patients >49 years of age, the reference limit for Creatinine is approximately 13% higher for people identified as -Marshallese. Performed By: #### 7 600, 03996, 496 #### [facility] [place] [address] Airfield Engineer Officer: Arjun Ramos MD eGFR NON-AFR. BAHAMIAN 78 mL/min/1.73m2 Normal > OR = 60 [facility] Comment on above: Performed By: #### 7 600, 95881, 496 #### [facility] [address], [address] [place] [address] Airfield Engineer Officer: Arjun Ramos MD GFR/1.73 sq M.predicted among blacks MDRD (S/P/Bld) [Vol rate/Area] 91 mL/min/{1.73_m2} Normal > OR = 60 [facility] Comment on above: Performed By: #### 7 600, 91377, 496 #### [facility] [address], [address] [place] [address] Airfield Engineer Officer: Arjun Ramos MD Globulin (S) [Mass/Vol] 2.4 g/dL Normal 1.9-3.7 [facility] Comment on above: Performed By: #### 7 600, 92231, 496 #### [facility] [address], [address] [place] [address] Airfield Engineer Officer: Arjun Ramos MD Glucose [Mass/Vol] 125 mg/dL Normal 65-139 [facility] Comment on above: Result Comment: Non-fasting reference interval For someone without known diabetes, a glucose value between 100 and 125 mg/dL is consistent with prediabetes and should be confirmed with a follow-up test. Performed By: #### 7 600, 95063, 496 #### [facility] [address], [address] [place] [address] Airfield Engineer Officer: Arjun Ramos MD Potassium [Moles/Vol] 3.6 mmol/L Normal 3.5-5.3 [facility] Comment on above: Performed By: #### 7 600, 48319, 496 #### [facility] [place] [address] Airfield Engineer Officer: Arjun Ramos MD Protein [Mass/Vol] 6.6 g/dL Normal 6.1-8.1 [facility] Comment on above: Performed By: #### 7 600, 43242, 496 #### [facility] [place] [address] Airfield Engineer Officer: Arjun Ramos MD Sodium [Moles/Vol] 139 mmol/L Normal 135-146 [facility] Comment on above: Performed By: #### 7 600, 73284, 496 #### [facility] [address], [address] [place] [address] Airfield Engineer Officer: Arjun Ramos MD Urea nitrogen [Mass/Vol] 4 mg/dL Low 7-25 [facility] Comment on above: Performed By: #### 7 600, 49291, 496 #### [facility] [address], [address] [place] [address] Airfield Engineer Officer: Arjun aRmos MD Urea nitrogen/Creatinine [Mass ratio] 5 mg/mg Low 6-22 [facility] Comment on above: Performed By: #### 7 600, 39050, 496 #### [facility] [address], [address] [place] [address] Airfield Engineer Officer: Arjun Ramos MD HEMOGLOBIN A1con 02-22-2022 HEMOGLOBIN [...] diagnosis of diabetes in children. According to [place] Diabetes Association (ADA) guidelines, hemoglobin A1c <7.0% represents optimal control in non- diabetic patients. Different metrics may apply to specific patient populations. Standards of Medical Care in Diabetes(ADA). Performed By: #### 7 600, 58974, 496 #### [facility] [address], [address] [place] [address] Airfield Engineer Officer: Arjun Ramos MD LIPID PANEL, STANDARDon 07- Cholesterol [Mass/Vol] 187 mg/dL Normal <200 [facility] Comment on above: Order Comment: FASTI NG:NO FASTING: NO Performed By: #### 7 600, 52345, 496 #### [facility] [address], [address] [place] [address] Airfield Engineer Officer: Arjun Ramos MD Cholesterol in HDL [Mass/Vol] 43 mg/dL Low > OR = 50 [facility] Comment on above: Order Comment: FASTI NG:NO FASTING: NO Performed By: #### 7 600, 72502, 496 #### [facility] [address], [address] [place] [address] Airfield Engineer Officer: Arjun Ramos MD Cholesterol.total/C holesterol in HDL [Mass ratio] 4.3 {ratio} Normal <5.0 [facility] Comment on above: Order Comment: FASTI NG:NO FASTING: NO Performed By: #### 7 600, 65590, 496 #### [facility] [address], [address] [place] [address] Airfield Engineer Officer: Arjun Ramos MD LDL-CHOLESTEROL Normal [facility] [...] factors. LDL-C is now calculated using the Lna-Palak calculation, which is a validated novel method providing better accuracy than the Friedewald equation in the estimation of LDL-C. Lan MARTÍNEZ et al. KELLY. 2013;310(19): 0800-3402 (http://education.Purchext.[employer]/faq/WLV117) Performed By: #### 7 600, 83714, 496 #### [facility] [address], [address] [place] [address] Airfield Engineer Officer: Arjun Ramos MD NON HDL CHOLESTEROL 144 mg/dL (calc) High <130 [facility] Comment on above: Order Comment: FASTI NG:NO FASTING: NO Result Comment: For patients with diabetes plus 1 major ASCVD risk factor, treating to a non-HDL-C goal of <100 mg/dL (LDL-C of <70 mg/dL) is considered a therapeutic option. Performed By: #### 7 600, 60843, 496 #### [facility] [address], [address] [place] [address] Airfield Engineer Officer: Arjun Ramos MD Triglyceride [Mass/Vol] 425 mg/dL High <150 [facility] Comment on above: Order Comment: FASTI NG:NO FASTING: NO Result Comment: If a non-fasting specimen was collected, consider repeat triglyceride testing on a fasting specimen if clinically indicated. Heber et al. J. of Clin. Lipidol. 2015;9:129-169. Performed By: #### 7 600, 56823, 496 #### [facility] [address], [address] [place] [address] Airfield Engineer Officer: Arjun Ramos MD HEMOGLOBIN A1con 11-14-2021 HEMOGLOBIN [...] #### 7 600, 496 #### [facility] [address], [address] [place] [address] Airfield Engineer Officer: Arjun Ramos MD LIPID PANEL, STANDARDon 10-18 Cholesterol [Mass/Vol] 184 mg/dL Normal <200 [facility] Comment on above: Order Comment: FASTI NG:YES FASTING: YES Performed By: #### 7 600, 496 #### [facility] [address] [address], [address] [place] [address] Airfield Engineer Officer: Arjun Ramos MD Cholesterol in HDL [Mass/Vol] 32 mg/dL Low > OR = 50 [facility] Comment on above: Order Comment: FASTI NG:YES FASTING: YES Performed By: #### 7 600, 496 #### [facility] [address], [address] [place] [address] Airfield Engineer Officer: Arjun Ramos MD Cholesterol.total/C holesterol in HDL [Mass ratio] 5.8 {ratio} High <5.0 [facility] Comment on above: Order Comment: FASTI NG:YES FASTING: YES Performed By: #### 7 600, 496 #### [facility] [address], [address] [place] [address] Airfield Engineer Officer: Arjun Ramos MD LDL-CHOLESTEROL Normal [facility] [...] LDL-C. Lan MARTÍNEZ et al. KELLY. 2013;310(19): 4747-3502 (http://education.EVOFEM/faq/PEH394) Performed By: #### 7 600, 496 #### [facility] [address], [address] [place] [address] Airfield Engineer Officer: Arjun Ramos MD NON HDL CHOLESTEROL 152 mg/dL (calc) High <130 [facility] Comment on above: Order Comment: FASTI NG:YES FASTING: YES Result Comment: For patients with diabetes plus 1 major ASCVD risk factor, treating to a non-HDL-C goal of <100 mg/dL (LDL-C of <70 mg/dL) is considered a therapeutic option. Performed By: #### 7 600, 496 #### [facility] [address], [address] [place] [address] Airfield Engineer Officer: Arjun Ramos MD Triglyceride [Mass/Vol] 531 mg/dL [...] By: #### 7 600, 496 #### [facility] [address] [facility], [address] [place] [address] Airfield Engineer Officer: Arjun Alejandro 06-27-2021 CNOV Office Visit (OTOLCC ) ROCK HERRERA ([id number]) 1970 F Date Time Provider Department 06/27/21 2:00 PM [facility] today, we recorded the following information about you: Temperature Pulse 97.3 degrees 82/minute Crystal Rodriguez PA-C 06/27/2021 4:56 PM Signed [facility] NOTE CC: Rock Herrera is a 50 year old female [...] ER - Follow up as clinically indicated Crystal Rodriguez PA-C [facility] HPI: 50 year [...] bipolar - COPD (chronic obstructive pulmonary disease) ([facility]) - Depression - Ana Laura-Danlos [...] mg ta (more content not included)... Normal [facility] CNOVon 04-19-2021 CNOV Office Visit (LOORRM ) ROCK HERRERA ([id number]) 1970 F Date Time Provider Department 04/19/21 1:30 PM RANDI FARRELL TESSA During your visit today, we recorded the [...] - Fully Assessed Reason for Visit: New [062390] Fracture [4131] Primary Visit Diagnosis:Other closed nondisplaced fracture of proximal end of left humerus, initial encounter [S42.295A] Other Visit Diagnosis:Right elbow pain [M25.521] Order(s):XR ELBOW SPECIAL VIEWS AP/LAT/OTHER RT [[id number]] Order #: [id number] FUTURE CONSULT TO RECYCLING ASSISTANT [[id number]] Order #: [id number]: 1 FUTURE Prescriptions as of 04/19/2021 - [...] of att (more content not included)... Normal [facility] XR ELBOW 3V AP/LAT/OTHER RTo [...] NO ACUTE OSSEOUS ABNORMALITY OTHER FINDINGS DESCRIBED Floor Tech: PSCB Transcribe Date/Time: Apr 19 2021 2:38P Dictated by : CAROL ROCHE MD This examination was interpreted and the report reviewed and electronically signed by: CAROL ROCHE MD on Apr 19 2021 2:39PM EST [id number] Normal [facility] XR Elbow - right AP and Late ral and obliqueon 04-19-2021 IMPRESSION: NO ACUTE OSSEOUS ABNORMALITY OTHER FINDINGS DESCRIBED Floor Tech: DIONNE Transcribe Date/Time: Apr 19 2021 2:38P Dictated by : CAROL ROCHE MD This examination was interpreted and the report reviewed and electronically signed by: CAROL ROCHE MD on Apr 19 2021 2:39PM [facility] DIVISION OF RADIOLOGY * * *Final [...] other significant abnormality. DIVISION OF RADIOLOGY Provider, [facility] - 04/19/2021 * * *Final Report* * [...] NO ACUTE OSSEOUS ABNORMALITY OTHER FINDINGS DESCRIBED Floor Tech: DIONNE Transcribe Date/Time: Apr 19 2021 2:38P Dictated by : CAROL ROCHE MD This examination was interpreted and the report reviewed and electronically signed by: CAROL ROCHE MD on Apr 19 2021 2:39PM EST [facility] Radiology Study observation (narrative) [facility] XR Elbow - right AP and Late ral and obliqueOrdered By: Ccf Provider on 04-19-2021 [facility] XR SHLDR >/=3V AP/IGNACIA AP/OTH [...] No other significant abnormality. IMPRESSION: HEALING FRACTURE Floor Tech: DIONNE Transcribe Date/Time: Apr 19 2021 2:02P Dictated by : CAROL ROCHE MD This examination was interpreted and the report reviewed and electronically signed by: CAROL ROCHE MD on Apr 19 2021 2:02PM EST [id number] Normal [facility] XR Shoulder - right 3 Viewso n 04-19-2021 IMPRESSION: HEALING FRACTURE Floor Tech: DIONNE Transcribe Date/Time: Apr 19 2021 2:02P Dictated by : CAROL ROCHE MD This examination was interpreted and the report reviewed and electronically signed by: CAROL ROCHE MD on Apr 19 2021 2:02PM [facility] DIVISION OF RADIOLOGY * * *Final [...] other significant abnormality. DIVISION OF RADIOLOGY Provider, [facility] - 04/19/2021 * * *Final Report* * [...] other significant abnormality. IMPRESSION IMPRESSION: HEALING FRACTURE Floor Tech: DIONNE Transcribe Date/Time: Apr 19 2021 2:02P Dictated by : CAROL ROCHE MD This examination was interpreted and the report reviewed and electronically signed by: CAROL ROCHE MD on Apr 19 2021 2:02PM EST [facility] Radiology Study observation (narrative) [facility] XR Shoulder - right 3 ViewsO rdered By: Ccf Provider on 04-19-2021 [facility] Vital Signs Date Time Vital Sign Value Performing Clinician Facility 09-16-2024 13:06-0500 Body height 162.6 cm Nikki Vergara HEATSET WINDER OPERATOR Work Phone: [facility] 09-16-2024 13:06-0500 Body mass index (BMI) [Ratio] 27.48 kg/m2 Nikki Wakefieldnagel HEATSET WINDER OPERATOR Work Phone: [facility] 09-16-2024 13:06-0500 Body weight 72.62 kg Nikki Spearsgel HEATSET WINDER OPERATOR Work Phone: [facility] 09-16-2024 13:06-0500 Diastolic blood pressure 60 mm[Hg] Nikki Twylanagel HEATSET WINDER OPERATOR Work Phone: [facility] 09-16-2024 13:06-0500 Systolic blood pressure 110 mm[Hg] Nikki Twylanagel HEATSET WINDER OPERATOR Work Phone: [facility] 09-15-2024 15:39-0500 Body height 162.6 cm Robert Nakedng DO Work Phone: [facility] [employer] 09-15-2024 15:39-0500 Body mass index (BMI) [Ratio] 27.29 kg/m2 Robert Furlong DO Work Phone: [facility] [employer] 09-15-2024 15:39-0500 Body temperature 97.7 [degF] Robert Furlong DO Work Phone: [facility] [employer] 09-15-2024 15:39-0500 Body weight 72.12 kg Robert Furlong DO Work Phone: [facility] 09-15-2024 15:39-0500 Diastolic blood pressure 60 mm[Hg] Robert Furlong DO Work Phone: [facility] 09-15-2024 15:39-0500 Heart rate 104 /min Robert Furlong DO Work Phone: [facility] 09-15-2024 15:39-0500 Respiratory rate 18 /min Robert Furlong DO Work Phone: [facility] 09-15-2024 15:39-0500 SaO2% (BldA) [Mass fraction] 94 % Robert Furlong DO Work Phone: [facility] 09-15-2024 15:39-0500 Systolic blood pressure 90 mm[Hg] Robert Furlong DO Work Phone: [facility] 08-26-2024 12:24-0500 Diastolic blood pressure 59 mm[Hg] Cady NCTech [facility] 08-26-2024 12:24-0500 Heart rate 47 /min Cady NCTech [facility] 08-26-2024 12:24-0500 Mean blood pressure 76 mm[Hg] Cady NCTech [facility] 08-26-2024 12:24-0500 Respiratory rate 16 /min Cady [facility]ech [facility] 08-26-2024 12:24-0500 Systolic blood pressure 111 mm[Hg] Cady [facility]CTech [facility] 08-13-2024 13:14-0500 Blood Pressure Location Kehinde Garcianus [facility] 08-13-2024 13:14-0500 Diastolic blood pressure 76 mm[Hg] Kehinde Kirnus [facility] 08-13-2024 13:14-0500 Heart rate 62 /min Kehinde Josenus [facility] 08-13-2024 13:14-0500 Respiratory rate 18 /min Kehinde Josenus [facility] 08-13-2024 13:14-0500 SaO2% (BldA) [Mass fraction] 98 % Kehinde Josenus [facility] 08-13-2024 13:14-0500 Systolic blood pressure 120 mm[Hg] Kehinde Josenus [facility] 08-10-2024 13:09-0500 Body height 162.6 cm Carlos Sanchez MD Work Phone: [facility] 08-10-2024 13:09-0500 Body mass index (BMI) [Ratio] 28.15 kg/m2 Carlos Sanchez MD Work Phone: [facility] 08-10-2024 13:09-0500 Body weight 74.39 kg Carlos Sanchez MD Work Phone: [facility] 07-29-2024 13:54-0500 Body mass index (BMI) [Ratio] 27.64 kg/m2 David Wilfredo DO Work Phone: [facility] 07-29-2024 13:54-0500 Body weight 73.03 kg David Wilfredo DO Work Phone: [facility] 07-29-2024 13:54-0500 Diastolic blood pressure 74 mm[Hg] David Wilfredo DO Work Phone: [facility] 07-29-2024 13:54-0500 Systolic blood pressure 120 mm[Hg] David Wilfredo DO Work Phone: [facility] 06-18-2024 15:01-0400 Body height 162.6 cm Martin Arango DPM Work Phone: [facility] 06-18-2024 15:01-0400 Body mass index (BMI) [Ratio] 28.15 kg/m2 Martin Arango DPM Work Phone: [facility] 06-18-2024 15:0400 Body weight 74.39 kg Martin Arango DPM Work Phone: [facility] 06-18-2024 15:01-0400 Diastolic blood pressure 79 mm[Hg] Martin Arango DPM Work Phone: [facility] 06-18-2024 15:01-0400 Heart rate 84 /min Martin Arango DPM Work Phone: [facility] 06-18-2024 15:040 Systolic blood pressure 140 mm[Hg] Martin Arango DPM Work Phone: [facility] 06-11-2024 15:100400 Body height 162.6 cm Brandon Simpson MD Work Phone: [facility] 06-11-2024 15:10-0400 Body mass index (BMI) [Ratio] 28.48 kg/m2 Brandon Simpson MD Work Phone: [facility] 06-11-2024 15:10-0400 Body temperature 98.01 [degF] Brandon Simpson MD Work Phone: [facility] 06-11-2024 15:10-0400 Body weight 75.3 kg Brandon Simpson MD Work Phone: [facility] 06-11-2024 15:10-0400 Diastolic blood pressure 70 mm[Hg] Brandon Simpson MD Work Phone: [facility] 06-11-2024 15:10-0400 Heart rate 50 /min Brandon Simpson MD Work Phone: [facility] 06-11-2024 15:10-0400 Respiratory rate 18 /min Brandon Simpson MD Work Phone: [facility] 06-11-2024 15:10-0400 SaO2% (BldA) [Mass fraction] 99 % Brandon Simpson MD Work Phone: [facility] 06-11-2024 15:10-0400 Systolic blood pressure 135 mm[Hg] Brandon Simpson MD Work Phone: [facility] 05-20-2024 11:08-0400 Body height 162.6 cm Alexsandra Verhoff PA-C Work Phone: [facility] [employer] 05-20-2024 11:08-0400 Body mass index (BMI) [Ratio] 28.63 kg/m2 Alexsandra Verhoff PA-C Work Phone: [facility] 05-20-2024 11:08-0400 Body weight 75.66 kg Alexsandra Verhoff PA-C Work Phone: [facility] [employer] 05-20-2024 11:08-0400 Diastolic blood pressure 82 mm[Hg] Alexsandra Verhoff PA-C Work Phone: [facility] 05-20-2024 11:08-0400 Heart rate 75 /min Alexs[facility] 05-20-2024 11:08-0400 Systolic blood pressure 139 mm[Hg] Alexsandra Verhoff PA-C Work Phone: [facility] 05-14-2024 10:18-0400 Body height 162.6 cm Martin Arango DPM Work Phone: [facility] 05-14-2024 10:18-0400 Body mass index (BMI) [Ratio] 28.15 kg/m2 Martin Arango DPM Work Phone: [facility] 05-14-2024 10:18-0400 Body weight 74.39 kg Martin Arango DPM Work Phone: [facility] 05-14-2024 10:18-0400 Diastolic blood pressure 80 mm[Hg] Martin Arango DPM Work Phone: [facility] 05-14-2024 10:18-0400 Heart rate 75 /min Martin Arango DPM Work Phone: [facility] 05-14-2024 10:18-0400 Respiratory rate 18 /min Martin Arango DPM Work Phone: [facility] 05-14-2024 10:18-0400 Systolic blood pressure 125 mm[Hg] Martin Arango DPM Work Phone: [facility] 04-27-2024 14:22-0400 Body height 162.6 cm Carlos Sanchez MD Work Phone: [facility] 04-27-2024 14:22-0400 Body mass index (BMI) [Ratio] 28.15 kg/m2 Carlos Sanchez MD Work Phone: [facility] 04-27-2024 14:22-0400 Body weight 74.39 kg Carlos Sanchez MD Work Phone: [facility] 04-27-2024 14:22-0400 Diastolic blood pressure 86 mm[Hg] Carlos Sanchez MD Work Phone: [facility] 04-27-2024 14:22-0400 Systolic blood pressure 124 mm[Hg] Carlos Sanchez MD Work Phone: [facility] 04-23-2024 09:33-0400 Body height 162.6 cm Martin Arango DPM Work Phone: [facility] 04-23-2024 09:33-0400 Body mass index (BMI) [Ratio] 28.15 kg/m2 Martin Arango DPM Work Phone: [facility] 04-23-2024 09:33-0400 Body weight 74.39 kg Martin Arango DPM Work Phone: [facility] 04-23-2024 09:33-0400 Diastolic blood pressure 82 mm[Hg] Martin Arango DPM Work Phone: [facility] 04-23-2024 09:33-0400 Heart rate 74 /min Martin Arango DPM Work Phone: [facility] 04-23-2024 09:33-0400 Respiratory rate 18 /min Martin Arango DPM Work Phone: [facility] 04-23-2024 09:33-0400 Systolic blood pressure 128 mm[Hg] Martindariana Arango DPM Work Phone: [facility] 04-09-2024 10:21-0400 Body height 162.6 cm Martin Arango DPM Work Phone: [facility] 04-09-2024 10:21-0400 Body mass index (BMI) [Ratio] 28.15 kg/m2 Martin Arango DPM Work Phone: [facility] 04-09-2024 10:21-0400 Body weight 74.39 kg Martin Arango DPM Work Phone: [facility] 04-09-2024 10:21-0400 Diastolic blood pressure 80 mm[Hg] Martin Harsh DPM Work Phone: [facility] 04-09-2024 10:21-0400 Heart rate 78 /min Martin Arango DPM Work Phone: [facility] 04-09-2024 10:21-0400 Systolic blood pressure 129 mm[Hg] Martin Arango DPM Work Phone: [facility] 04-08-2024 12:20-0400 Body height 162.6 cm Cj Apling HEATSET WINDER OPERATOR Work Phone: [facility] 04-08-2024 12:20-0400 Body mass index (BMI) [Ratio] 28.15 kg/m2 Cj Apling HEATSET WINDER OPERATOR Work Phone: [facility] 04-08-2024 12:20-0400 Body weight 74.39 kg Cj Apling HEATSET WINDER OPERATOR Work Phone: [facility] 03-05-2024 15:16-0400 Diastolic blood pressure 69 mm[Hg] Andrew Edi [facility] 03-05-2024 15:16-0400 Heart rate 62 /min Andrew Eid [facility] 03-05-2024 15:16-0400 Mean blood pressure 84 mm[Hg] Andrew Eid [facility] 03-05-2024 15:16-0400 Respiratory rate 14 /min Andrew Eid [facility] 03-05-2024 15:16-0400 Systolic blood pressure 115 mm[Hg] Andrew Eid [facility] 01-30-2024 13:54-0400 Diastolic blood pressure 68 mm[Hg] En Carmen [facility] 01-30-2024 13:54-0400 Systolic blood pressure 124 mm[Hg] En Carmen [facility] 01-15-2024 08:16-0400 Diastolic blood pressure 70 mm[Hg] Cady [facility] 01-15-2024 08:16-0400 Heart rate 73 /min Cady [facility]ech [facility] 01-15-2024 08:16-0400 Mean blood pressure 82 mm[Hg] Cady Alva [facility] 01-15-2024 08:16-0400 Respiratory rate 16 /min Cady Alva [facility] 01-15-2024 08:16-0400 Systolic blood pressure 105 mm[Hg] Cady [facility] 01-01-2024 11:04-0400 Diastolic blood pressure 71 mm[Hg] Cady [facility]ech [facility] 01-01-2024 11:04-0400 Heart rate 62 /min Cady [facility]ech [facility] 01-01-2024 11:04-0400 Mean blood pressure 91 mm[Hg] Cady Alva [facility] 01-01-2024 11:04-0400 Respiratory rate 12 /min Cady Alva [facility] 01-01-2024 11:04-0400 Systolic blood pressure 131 mm[Hg] Cady Alva [facility] 12-31-2023 12:53-0400 Blood Pressure Location POLLY MARIANO [facility] 12-31-2023 12:53-0400 Diastolic blood pressure 65 mm[Hg] POLLY YUDY [facility] 12-31-2023 12:53-0400 Heart rate 57 /min POLLY YUDY [facility] 12-31-2023 12:53-0400 Respiratory rate 16 /min POLLY MARIANO [facility] 12-31-2023 12:53-0400 Systolic blood pressure 117 mm[Hg] POLLY YUDY [facility] 12-11-2023 09:29-0400 Heart rate 89 /min Andrew Eid [facility] 12-11-2023 09:29-0400 SaO2% (BldA) [Mass fraction] 96 % Andrew Eid [facility] 12-11-2023 09:29-0400 Diastolic blood pressure 86 mm[Hg] Andrew Eid [facility] 12-11-2023 09:29-0400 Mean blood pressure 103 mm[Hg] Andrew Eid [facility] 12-11-2023 09:29-0400 Systolic blood pressure 137 mm[Hg] Andrew Eid [facility] 12-11-2023 09:29-0400 Respiratory rate 14 /min Andrew Eid [facility] 12-11-2023 09:25-0400 Diastolic blood pressure 84 mm[Hg] Andrew Eid [facility] 12-11-2023 09:25-0400 Heart rate 97 /min Andrew Eid [facility] 12-11-2023 09:25-0400 SaO2% (BldA) [Mass fraction] 96 % Andrew Eid [facility] 12-11-2023 09:25-0400 Systolic blood pressure 141 mm[Hg] Andrew Eid [facility] 12-11-2023 08:44-0400 Heart rate 93 /min Andrew Eid [facility] 12-11-2023 08:44-0400 SaO2% (BldA) [Mass fraction] 94 % Andrew Eid [facility] 12-11-2023 08:44-0400 Body temperature 98.24 [degF] Andrew Eid [facility] 12-11-2023 08:43-0400 Diastolic blood pressure 86 mm[Hg] Andrew Eid [facility] 12-11-2023 08:43-0400 Mean blood pressure 102 mm[Hg] Andrew Eid [facility] 12-11-2023 08:43-0400 Systolic blood pressure 134 mm[Hg] Andrew Eid [facility] 12-11-2023 08:43-0400 Respiratory rate 15 /min Andrew Eid [facility] 11-06-2023 09:32-0400 Diastolic blood pressure 71 mm[Hg] Cady Alva [facility] 11-06-2023 09:32-0400 Heart rate 79 /min Cady Alva [facility] 11-06-2023 09:32-0400 Mean blood pressure 84 mm[Hg] Cady Alva [facility] 11-06-2023 09:32-0400 Respiratory rate 15 /min Cady Alva [facility] 11-06-2023 09:32-0400 Systolic blood pressure 111 mm[Hg] Cady Alva [facility] 10-03-2023 16:13-0500 Body height 162.6 cm RobertRetail Rocket DO Work Phone: [facility] 10-03-2023 16:13-0500 Body mass index (BMI) [Ratio] 30.47 kg/m2 RobertF.8 [employer] DO Work Phone: [facility] 10-03-2023 16:13-0500 Body temperature 97.3 [degF] Robert SmartProcurelong DO Work Phone: [facility] [employer] 10-03-2023 16:13-0500 Body weight 80.51 kg RobertChina Health Medialong DO Work Phone: [facility] [employer] 10-03-2023 16:13-0500 Diastolic blood pressure 60 mm[Hg] Robert SmartProcurelong DO Work Phone: [facility] [employer] 10-03-2023 16:13-0500 Heart rate 67 /min Robert SmartProcurelong DO Work Phone: [facility] [employer] 10-03-2023 16:13-0500 SaO2% (BldA) [Mass fraction] 98 % Robert SmartProcurelong DO Work Phone: [facility] 10-03-2023 16:13-0500 Systolic blood pressure 118 mm[Hg] Robert SmartProcurelong DO Work Phone: [facility] 09-26-2023 15:11-0500 Body height 165.1 cm Martin Arango DPM Work Phone: [facility] 09-26-2023 15:11-0500 Body mass index (BMI) [Ratio] 29.29 kg/m2 Martin Arango DPM Work Phone: [facility] 09-26-2023 15:11-0500 Body weight 79.83 kg Martin Arango DPM Work Phone: [facility] 09-26-2023 15:11-0500 Diastolic blood pressure 80 mm[Hg] Martin Arango DPM Work Phone: [facility] 09-26-2023 15:11-0500 Heart rate 79 /min Martin Arango DPM Work Phone: [facility] 09-26-2023 15:11-0500 Systolic blood pressure 133 mm[Hg] Martin Arango DPM Work Phone: [facility] 09-17-2023 08:23-0500 Blood Pressure Location POLLY YUDY [facility] 09-17-2023 08:23-0500 Diastolic blood pressure 52 mm[Hg] POLLY YUDY [facility] 09-17-2023 08:23-0500 Heart rate 65 /min POLLY YUDY [facility] 09-17-2023 08:23-0500 Respiratory rate 16 /min POLLY YUDY [facility] 09-17-2023 08:23-0500 Systolic blood pressure 135 mm[Hg] POLLY YUDY [facility] 08-27-2023 10:30-0500 Body height 165.1 cm Valarie Yael Other [employer] Other 08-27-2023 10:30-0500 Body mass index (BMI) [Ratio] 29.28 kg/m2 Valarie Yael Other [employer] Other 08-27-2023 10:30-0500 Body temperature 97.2 [degF] Valarie Yael Other [employer] Other 08-27-2023 10:30-0500 Body weight 79.83 kg Valarie Yael Other [employer] Other 08-27-2023 10:30-0500 Diastolic blood pressure 80 mm[Hg] Valarie Yael Other [employer] Other 08-27-2023 10:30-0500 Respiratory rate 20 /min Valarie Yael Other [employer] Other 08-27-2023 10:30-0500 SaO2% (BldA) [Mass fraction] 93 % Valarie Yael Other [employer] Other 08-27-2023 10:30-0500 Systolic blood pressure 132 mm[Hg] Valarie Yael Other [facility] [employer] Other 07-25-2023 10:39-0500 Blood Pressure Location Elliott SOLIS [facility] 07-25-2023 10:39-0500 Diastolic blood pressure 82 mm[Hg] Elliott SOLIS [facility] 07-25-2023 10:39-0500 Heart rate 76 /min Elliott SOLIS [facility] 07-25-2023 10:39-0500 SaO2% (BldA) [Mass fraction] 97 % Elliott SOLIS [facility] 07-25-2023 10:39-0500 Systolic blood pressure 138 mm[Hg] Elliott SOLIS [facility] 07-05-2023 15:44-0500 Blood Pressure Location Cadyblaine KLEING [facility] 07-05-2023 15:44-0500 Diastolic blood pressure 83 mm[Hg] Cady STANG [facility] 07-05-2023 15:44-0500 Heart rate 70 /min Cady STANG [facility] 07-05-2023 15:44-0500 SaO2% (BldA) [Mass fraction] 99 % Cady STANG [facility] 07-05-2023 15:44-0500 Systolic blood pressure 138 mm[Hg] Cady STANG [facility] 05-20-2023 10:03-0400 Blood Pressure Location Cady STANG [facility] 05-20-2023 10:03-0400 Diastolic blood pressure 80 mm[Hg] Cady STANG [facility] 05-20-2023 10:03-0400 Heart rate 75 /min Cady STANG [facility] 05-20-2023 10:03-0400 SaO2% (BldA) [Mass fraction] 98 % Cady STANG [facility] 05-20-2023 10:03-0400 Systolic blood pressure 130 mm[Hg] Cady STANG [facility] 02-26-2023 08:30-0400 Body height 165.1 cm Valarie Yael Other [employer] Other 02-26-2023 08:30-0400 Body mass index (BMI) [Ratio] 28.25 kg/m2 Valarie Yael Other [employer] Other 02-26-2023 08:30-0400 Body temperature 96.9 [degF] Valarie Yael Other [employer] Other 02-26-2023 08:30-0400 Body weight 77.02 kg Valarie Yael Other [employer] Other 02-26-2023 08:30-0400 Diastolic blood pressure 84 mm[Hg] Valarie Yael Other [employer] Other 02-26-2023 08:30-0400 Respiratory rate 20 /min Valarie Yael Other [employer] Other 02-26-2023 08:30-0400 SaO2% (BldA) [Mass fraction] Valarie Yael Other [facility] Other 02-26-2023 08:30-0400 Systolic blood pressure 138 mm[Hg] Valarie Yael Other [place] [facility] Other 01-17-2023 10:04-0400 Diastolic blood pressure 76 mm[Hg] Poole SALAM [facility] 01-17-2023 10:04-0400 Heart rate 70 /min Poole SALAM [facility] 01-17-2023 10:04-0400 Mean blood pressure 100 mm[Hg] Poole SALAM [facility] 01-17-2023 10:04-0400 Respiratory rate 17 /min Poole SALAM [facility] 01-17-2023 10:04-0400 SaO2% (BldA) [Mass fraction] 99 % Poole SALAM [facility] 01-17-2023 10:04-0400 Systolic blood pressure 149 mm[Hg] Poole SALAM [facility] 01-17-2023 09:55-0400 Diastolic blood pressure 80 mm[Hg] Poole SALAM [facility] 01-17-2023 09:55-0400 Heart rate 74 /min Poole SALAM [facility] 01-17-2023 09:55-0400 Mean blood pressure 97 mm[Hg] Poole SALAM [facility] 01-17-2023 09:55-0400 Respiratory rate 15 /min Poole SALAM [facility] 01-17-2023 09:55-0400 SaO2% (BldA) [Mass fraction] 99 % Poole SALAM [facility] 01-17-2023 09:55-0400 Systolic blood pressure 132 mm[Hg] Poole SALAM [facility] 01-17-2023 09:50-0400 Diastolic blood pressure 79 mm[Hg] Poole SALAM [facility] 01-17-2023 09:50-0400 Heart rate 73 /min Poole SALAM [facility] 01-17-2023 09:50-0400 Mean blood pressure 94 mm[Hg] Poole SALAM [facility] 01-17-2023 09:50-0400 Respiratory rate 13 /min Zulema CRAMER [facility] 01-17-2023 09:50-0400 SaO2% (BldA) [Mass fraction] 98 % Zulema CRAMER [facility] 01-17-2023 09:50-0400 Systolic blood pressure 125 mm[Hg] Zulema CRAMER [facility] 01-17-2023 09:39-0400 Body temperature 98.24 [degF] Poolevenu CRAMER [facility] 01-17-2023 08:35-0400 Blood Pressure Location Poolevenu CRAMER [facility] 01-17-2023 08:35-0400 Body temperature 98.06 [degF] Poolevenu CRAMER [facility] 11-21-2022 12:41-0400 Heart rate 61 /min Martin Arango [facility] 11-21-2022 12:41-0400 SaO2% (BldA) [Mass fraction] 97 % Martin Arango [facility] 11-21-2022 12:41-0400 Diastolic blood pressure 64 mm[Hg] Martin Arango [facility] 11-21-2022 12:41-0400 Mean blood pressure 85 mm[Hg] Martin Arango [facility] 11-21-2022 12:41-0400 Systolic blood pressure 128 mm[Hg] Martin Arango [facility] 11-21-2022 12:41-0400 Body temperature 96.98 [degF] Martin Arango [facility] 11-21-2022 12:40-0400 Respiratory rate 16 /min Martin Arango [facility] 11-21-2022 11:09-0400 Heart rate 66 /min Martin Arango [facility] 11-21-2022 11:09-0400 SaO2% (BldA) [Mass fraction] 100 % Martin Arango [facility] 11-21-2022 11:09-0400 Diastolic blood pressure 68 mm[Hg] Martin Arango [facility] 11-21-2022 11:09-0400 Mean blood pressure 84 mm[Hg] Martin Arango [facility] 11-21-2022 11:09-0400 Systolic blood pressure 116 mm[Hg] Martin Arango [facility] 11-21-2022 11:09-0400 Body temperature 98.06 [degF] Martni Arango [facility] 11-21-2022 11:08-0400 Respiratory rate 14 /min Martin Arango [facility] 11-21-2022 10:55-0400 Body temperature 97.16 [degF] Martin Arango [facility] 11-21-2022 10:55-0400 Diastolic blood pressure 85 mm[Hg] Martin Arango [facility] 11-21-2022 10:55-0400 Heart rate 65 /min Martin Arango [facility] 11-21-2022 10:55-0400 Mean blood pressure 98 mm[Hg] Martin Arango [facility] 11-21-2022 10:55-0400 Respiratory rate 18 /min Martindariana Arango [facility] 11-21-2022 10:55-0400 SaO2% (BldA) [Mass fraction] 98 % Martin Arango [facility] 11-21-2022 10:55-0400 Systolic blood pressure 123 mm[Hg] Martin Arango [facility] 11-21-2022 10:45-0400 Mean blood pressure 84 mm[Hg] Martin Arango [facility] 11-21-2022 10:45-0400 Respiratory rate 15 /min Martin Arango [facility] 11-21-2022 10:30-0400 Mean blood pressure 73 mm[Hg] Martin Arango [facility] 11-21-2022 10:30-0400 Respiratory rate 13 /min Martin Arango [facility] 11-21-2022 10:15-0400 Respiratory rate 1 /min Martin Arango [facility] 11-21-2022 07:43-0400 Mean blood pressure 100 mm[Hg] Martin Arango [facility] 11-21-2022 07:43-0400 Heart rate 62 /min Martin Arango [facility] 10-30-2022 15:25-0400 Blood Pressure Location Elliott Solis [facility] 10-30-2022 15:25-0400 Diastolic blood pressure 80 mm[Hg] Elliott Solis [facility] 10-30-2022 15:25-0400 Heart rate 70 /min Elliott Solis [facility] 10-30-2022 15:25-0400 SaO2% (BldA) [Mass fraction] 95 % Elliott Solis [facility] 10-30-2022 15:25-0400 Systolic blood pressure 126 mm[Hg] Elliott Solis [facility] 10-29-2022 14:56-0400 Diastolic blood pressure 86 mm[Hg] Inessa Nicci [facility] 10-29-2022 14:56-0400 Mean blood pressure 103 mm[Hg] Inessa Nicci [facility] 10-29-2022 14:56-0400 Systolic blood pressure 138 mm[Hg] Inessa Nicci [facility] 10-29-2022 14:50-0400 Blood Pressure Location Inessa Nicci [facility] 10-29-2022 14:50-0400 Body temperature 97.88 [degF] Inessa Nicci [facility] 10-29-2022 14:50-0400 Diastolic blood pressure 86 mm[Hg] Inessa Nicci [facility] 10-29-2022 14:50-0400 Heart rate 85 /min Inessa Nicci [facility] 10-29-2022 14:50-0400 Systolic blood pressure 141 mm[Hg] Inessa Nicci [facility] 10-20-2022 10:33-0500 Body temperature 95.9 [degF] Santos Landry [facility] 10-20-2022 10:33-0500 Diastolic blood pressure 73 mm[Hg] Santos Landry [facility] 03-04-2023 10:33-0500 Heart rate 62 /min Santos Landry [facility] 10-20-2022 10:33-0500 Respiratory rate 18 /min Santos Frantz [facility] 10-20-2022 10:33-0500 SaO2% (BldA) [Mass fraction] 100 % Santos Frantz [facility] 10-20-2022 10:33-0500 Systolic blood pressure 151 mm[Hg] Santos Frantz [facility] 10-12-2022 13:06-0500 Body temperature 97.7 [degF] Santosaparna Landry [facility] 10-12-2022 13:06-0500 Diastolic blood pressure 71 mm[Hg] Santos Landry [facility] 10-12-2022 13:06-0500 Heart rate 68 /min Santos Landry [facility] 10-12-2022 13:06-0500 Respiratory rate 18 /min Santos Landry [facility] 10-12-2022 13:06-0500 SaO2% (BldA) [Mass fraction] 98 % Santos Landry [facility] 10-12-2022 13:06-0500 Systolic blood pressure 126 mm[Hg] Santos Landry [facility] 10-02-2022 12:31-0500 Blood Pressure Location Inessa Grajeda [facility] 10-02-2022 12:31-0500 Diastolic blood pressure 52 mm[Hg] Inessa Grajeda [facility] 10-02-2022 12:31-0500 Heart rate 56 /min Inessa Grajeda [facility] 10-02-2022 12:31-0500 SaO2% (BldA) [Mass fraction] 100 % Inessa Grajeda [facility] 10-02-2022 12:31-0500 Systolic blood pressure 136 mm[Hg] Inessa Gatesz [facility] 09-06-2022 10:09-0500 Blood Pressure Location Poole SALAM [facility] 09-06-2022 10:09-0500 Diastolic blood pressure 71 mm[Hg] Poole SALAM [facility] 09-06-2022 10:09-0500 Heart rate 70 /min Poole SALAM [facility] 09-06-2022 10:09-0500 Respiratory rate 22 /min Poole SALAM [facility] 09-06-2022 10:09-0500 Systolic blood pressure 145 mm[Hg] Poole SALAM [facility] 09-06-2022 10:05-0500 Blood Pressure Location Poole SALAM [facility] 09-06-2022 10:05-0500 Diastolic blood pressure 66 mm[Hg] Poole SALAM [facility] 09-06-2022 10:05-0500 Heart rate 66 /min Poole SALAM [facility] 09-06-2022 10:05-0500 Respiratory rate 20 /min Poole SALAM [facility] 09-06-2022 10:05-0500 SaO2% (BldA) [Mass fraction] 100 % Poole SALAM [facility] 09-06-2022 10:05-0500 Systolic blood pressure 94 mm[Hg] Poole SALAM [facility] 09-06-2022 10:00-0500 Heart rate 59 /min Poole SALAM [facility] 09-06-2022 10:00-0500 Respiratory rate 17 /min Poole SALAM [facility] 09-06-2022 10:00-0500 Systolic blood pressure 90 mm[Hg] Poole SALAM [facility] 09-06-2022 09:55-0500 SaO2% (BldA) [Mass fraction] 100 % Poole SALAM [facility] 09-06-2022 09:40-0500 Body temperature 96.62 [degF] Poole SALAM [facility] 09-06-2022 07:35-0500 Body temperature 96.62 [degF] Poole SALAM [facility] 07-05-2022 10:00-0500 Body height 165.1 cm Valarie Yael Other [employer] [facility] Other 07-05-2022 10:00-0500 Body mass index (BMI) [Ratio] 28.95 kg/m2 Valarie Yael Other [facility] Other 07-05-2022 10:00-0500 Body temperature 97 [degF] Valarie Yael Other [facility] Other 07-05-2022 10:00-0500 Body weight 78.93 kg Valarie Yael Other [facility] Other 07-05-2022 10:00-0500 Diastolic blood pressure 77 mm[Hg] Valarie Yael Other [facility] Other 07-05-2022 10:00-0500 Respiratory rate 20 /min Valarie Yael Other [facility] Other 07-05-2022 10:00-0500 SaO2% (BldA) [Mass fraction] Valarie Yael Other [facility] Other 07-05-2022 10:00-0500 Systolic blood pressure 137 mm[Hg] Valarie Yael Other [place] [facility] Other 05-15-2022 13:22-0400 Diastolic blood pressure 65 mm[Hg] Cady STANG [facility] 05-15-2022 13:22-0400 Mean blood pressure 85 mm[Hg] Cady STANG [facility] 05-15-2022 13:22-0400 Systolic blood pressure 126 mm[Hg] Cady STANG [facility] 05-15-2022 13:08-0400 Blood Pressure Location Cady STANG [facility] 05-15-2022 13:08-0400 Diastolic blood pressure 88 mm[Hg] Cady STANG [facility] 05-15-2022 13:08-0400 Heart rate 62 /min Cady STANG [facility] 05-15-2022 13:08-0400 Respiratory rate 18 /min Cady STANG [facility] 05-15-2022 13:08-0400 SaO2% (BldA) [Mass fraction] 100 % Cady STANG [facility] 05-15-2022 13:08-0400 Systolic blood pressure 140 mm[Hg] Cadyblaine CALIX [facility] 03-20-2022 13:16-0400 Diastolic blood pressure 72 mm[Hg] Elliott Solis [facility] 03-20-2022 13:16-0400 Heart rate 73 /min Elliott Solis [facility] 03-20-2022 13:16-0400 Mean blood pressure 87 mm[Hg] Elliott Solis [facility] 03-20-2022 13:16-0400 Respiratory rate 18 /min Elliott Solis [facility] 03-20-2022 13:16-0400 Systolic blood pressure 118 mm[Hg] Elliott Solis [facility] 03-06-2022 10:27-0400 Blood Pressure Location Cadyblaine CALIX [facility] 03-06-2022 10:27-0400 Diastolic blood pressure 78 mm[Hg] Cadyblaine KLEING [facility] 03-06-2022 10:27-0400 Heart rate 68 /min Cadyblaine KLEING [facility] 03-06-2022 10:27-0400 Respiratory rate 18 /min Cadyblaine KLEING [facility] 03-06-2022 10:27-0400 SaO2% (BldA) [Mass fraction] 98 % Cady STANG [facility] 03-06-2022 10:27-0400 Systolic blood pressure 137 mm[Hg] Cady STANG [facility] 01-11-2022 15:06-0400 Diastolic blood pressure 83 mm[Hg] Poole SALAM [facility] 01-11-2022 15:06-0400 Heart rate 61 /min Poolevenu CRAMER [facility] [employer] [facility] 01-11-2022 15:06-0400 Systolic blood pressure 136 mm[Hg] Zulema CURRYAM [facility] [employer] [facility] 12-11-2021 12:00-0400 Blood Pressure Location Donaldo PEARSON [facility] 12-11-2021 12:00-0400 Diastolic blood pressure 75 mm[Hg] Donaldo PEARSON [facility] 12-11-2021 12:00-0400 Heart rate 78 /min Donaldo PEARSON [facility] 12-11-2021 12:00-0400 Systolic blood pressure 107 mm[Hg] Donaldo PEARSON [facility] En[facility] Encounter Date Encounter Type Care Provider Facility Start: 09-24-2024 End: 09-29-2024 Telephone encounter Shmuel Levine AIR AND HYDRONIC BALANCING TECHNICIAN [facility] Comment on above: Severe Migraine; FU Start: 09-23-2024 End: 09-23-2024 Orders Only Robert Giron DO Work Phone: [facility] Comment on above: Diabetes mellitus wi thout complication (CMS-HCC) (Primary Dx) Left knee pain, unsp ecified chronicity (Primary Dx); Arthritis of left knee; Chronic pain of left knee Start: 09-22-2024 End: 09-22-2024 [facility] Start: 09-19-2024 End: 09-21-2024 Refill Robert Giron DO Work Phone: [facility] Comment on above: Type 2 diabetes mouna itus with hyperglycemia, without long-term current use of insulin ([facility]) Start: 09-18-2024 End: 09-19-2024 Refill Robert Giron DO Work Phone: [facility] Start: 09-17-2024 End: 09-17-2024 ambulatory Gricelda Hammond PT [facility] Comment on above: Left knee pain, unsp ecified chronicity (Primary Dx); Arthritis of left knee; Chronic pain of left knee Start: 09-16-2024 End: 09-16-2024 Bamboo flowsheet Nikki Vergara HEATSET WINDER OPERATOR Work Phone: [facility] Start: 09-16-2024 End: 09-16-2024 Bamboo flowsheet Nikki Vergara HEATSET WINDER OPERATOR Work Phone: [facility] Start: 09-16-2024 End: 09-16-2024 Office outpatient visit 25 minutes Nikki Vergara HEATSET WINDER OPERATOR Work Phone: [facility] Comment on above: CELINE (obstructive sle ep apnea) (Primary Dx); Chronic migraine without aura without status migrainosus, not intractable ([facility]); Cognitive decline; Lumbar radiculopathy Start: 09-16-2024 End: 09-16-2024 ambulatory NIKKI VERGARA Not Available Start: 09-15-2024 End: 09-15-2024 ambulatory ROBERT GIRON [facility] Start: 09-15-2024 End: 09-15-2024 Office outpatient visit 25 minutes [facility] DO [facility] Comment on above: Anxiety (Primary Dx) ; Diabetes mellitus without complication ([facility]); Essential hypertension; Mixed hyperlipidemia; Medication management; Chronic obstructive pulmonary disease, unspecified COPD type ([facility]); Abnormality of gait and mobility; Current smoker Start: 09-15-2024 End: 09-15-[address] [facility] Start: 09-15-2024 End: 09-15-2024 Telephone encounter Shmuel Levine AIR AND HYDRONIC BALANCING TECHNICIAN [facility] Comment on above: CX PT 09/15 Start: 09-10-2024 End: 09-10-2024 Bamboo flowsheet Shmuel Levine AIR AND HYDRONIC BALANCING TECHNICIAN [facility] Start: 09-10-2024 End: 09-10-2024 Bamboo flowsheet Shmuel Levine AIR AND HYDRONIC BALANCING TECHNICIAN [facility] Start: 09-10-2024 End: 09-10-2024 ambulatory Shmuel Levine AIR AND HYDRONIC BALANCING TECHNICIAN [facility] Comment on above: Left knee pain, unsp ecified chronicity (Primary Dx) Start: 09-04-2024 End: 09-04-2024 Telephone encounter Caty Geronimo AIR AND HYDRONIC BALANCING TECHNICIAN [facility] Comment on above: re: PT today Start: 09-03-2024 End: 09-03-2024 Telephone encounter Gricelda Hammond PT [facility] Comment on above: CX PT / RS for 09/04 Start: 09-01-2024 End: 09-01-2024 Bamboo flowsheet Shmuel Levine AIR AND HYDRONIC BALANCING TECHNICIAN [facility] Start: 09-01-2024 End: 09-01-2024 Bamboo flowsheet Shmuel Levine AIR AND HYDRONIC BALANCING TECHNICIAN [facility] Start: 09-01-2024 End: 09-01-2024 ambulatory Shmuel Levine AIR AND HYDRONIC BALANCING TECHNICIAN [facility] Comment on above: Left knee pain, unsp ecified chronicity (Primary Dx) Start: 08-28-2024 End: 08-28-2024 Bamboo flowsheet Gricelda Hammond PT [facility] Start: 08-28-2024 End: 08-28-2024 Bamboo flowsheet Gricelda Hammond PT [facility] Start: 08-28-2024 End: 08-28-2024 ambulatory Gricelda Hammond PT [facility] Comment on above: Left knee pain, unsp ecified chronicity (Primary Dx) Start: 08-26-2024 End: 08-26-2024 ambulatory XXXX NONE [place] Start: 08-26-2024 End: 08-26-2024 Patient encounter procedure Cady Alva [facility] Start: 08-21-2024 End: 08-21-2024 Orders Only Robert Giron DO Work Phone: [facility] Comment on above: Diabetes mellitus wi thout complication (CMS-HCC) (Primary Dx) Start: 08-19-2024 End: 08-19-2024 ambulatory [facility] Start: 08-17-2024 End: 08-17-2024 ambulatory [facility] Start: 08-13-2024 End: 08-13-2024 Patient encounter procedure Kehinde Thibodeaux Bill [facility] Start: 08-13-2024 End: 08-13-2024 Refill Robert Giron DO Work Phone: [facility] Start: 08-10-2024 End: 08-10-2024 Bamboo flowsheet Carlos Sanchez MD Work Phone: [facility] Start: 08-10-2024 End: 08-10-2024 Bamboo flowsheet Carlos Sanchez MD Work Phone: [facility] Start: 08-10-2024 End: 08-10-2024 Office outpatient visit 25 minutes Carlos Sanchez MD Work Phone: [facility] Comment on above: Attention deficit hy peractivity disorder (ADHD), predominantly inattentive type (CMS/HCC) (Primary Dx); Intractable chronic migraine without aura and without status migrainosus (CMS/HCC) Start: 08-10-2024 End: 08-10-2024 Orders Only Jena Vaz NP Work Phone: [facility] 210 Comment on above: Attention deficit hy peractivity disorder (ADHD), predominantly inattentive type (CMS/HCC) (Primary Dx); Fibromyalgia; Anxiety Start: 08-04-2024 End: 08-04-2024 Telephone encounter Carlos Sanchez MD Work Phone: [facility] [address] Start: 08-03-2024 End: 08-03-2024 ambulatory Carmina DELROY [facility] Start: 07-29-2024 End: 07-29-2024 Bamboo flowsheet David Wilfredo DO Work Phone: [facility] Start: 07-29-2024 End: 08-06-2024 Bamboo flowsheet David Wilfredo DO Work Phone: [facility] Start: 07-29-2024 End: 08-06-2024 Clinisync Result Encounter David Wilfredo DO Work Phone: [facility] External Department Unsolicited Start: 07-29-2024 End: 07-29-2024 Patient encounter procedure David Wilfredo DO Work Phone: [facility] Start: 07-29-2024 End: 07-29-2024 Periodic preventive med est patient 40-64yrs David Wilfredo DO Work Phone: [facility] Comment on above: Well woman exam with routine gynecological exam; H/O: hysterectomy; Osteoporosis, post-menopausal (CMS/HCC) Start: 07-29-2024 End: 07-29-2024 ambulatory DAVID WILFREDO Not Available Start: 07-27-2024 End: 07-27-2024 Office outpatient visit 25 minutes Duane Nicole MD Work Phone: [facility] Comment on above: Fibromyalgia Start: 07-27-2024 End: 07-27-2024 ambulatory ROBERT Santiago [facility] Start: 07-23-2024 End: 07-25-[address] [facility] Comment on above: Anxiety Start: 07-07-2024 End: 07-07-2024 Emergency department patient visit ROBERT Santiago [facility] Start: 06-28-2024 End: 06-28-2024 [facility] Start: 06-18-2024 End: 06-18-2024 Office outpatient visit 15 minutes Martin Arango DPM Work Phone: [facility] Comment on above: 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); Diabetes 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 polyneuropathy, with long-term current use of insulin ([facility]) Start: 06-18-2024 End: 06-18-2024 ambulatory [...] End: 06-17-2024 Telephone encounter Leonor Kunz CNA [facility] Start: 06-16-2024 ambulatory Carmina ALCANTARA [facility] Start: 06-15-2024 End: 06-15-2024 Telephone encounter Karlos Mace DO Work Phone: [facility] Comment on above: L knee pain Start: 06-15-2024 End: 06-15-2024 ambulatory DUANE [facility] Start: 06-11-2024 End: 06-11-2024 Office outpatient new 45 minutes Brandon Simpson MD Work Phone: Izabel Amato [facility] Comment on above: Leukocytosis, unspec ified type Start: 06-11-2024 End: 06-11-2024 ambulatory BRANDON SIMPSON [facility] Start: 06-10-2024 End: 06-10-2024 Orders Only Robert Giron DO Work Phone: [facility] Start: 06-09-2024 End: 06-09-2024 Telephone encounter Pastora Jimenezdleston DO Work Phone: [facility] Comment on above: pain Start: 06-08-2024 End: 06-08-2024 Telephone encounter Alexsandra Smart PA-C Work Phone: [facility] Start: 06-05-2024 End: 06-05-2024 ambulatory [facility] Start: 06-05-2024 End: 06-05-2024 ambulatory [facility] Start: 05-28-2024 End: 05-28-2024 Refill Robert Giron DO Work Phone: [facility] Start: 05-28-2024 End: 05-28-2024 Telephone encounter Amaris Huynh MA [facility] Start: 05-26-2024 End: 05-27-2024 Refill Robert Giron DO Work Phone: [facility] Comment on above: Anxiety Start: 05-20-2024 End: 05-20-2024 Office outpatient visit 25 minutes Alexsandra Smart PA-C Work Phone: [facility] Comment on above: 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 (Primary Dx); Chronic pain of left knee Start: 05-20-2024 End: 05-20-2024 ambulatory ALEXSANDRAHannah SMART [facility] Start: 05-18-2024 End: 05-18-2024 ambulatory ROBERT WAGGONERCHARLI [facility] Start: 05-18-2024 End: 05-19-2024 Telephone encounter Leonor Kunz CNA [facility] Start: 05-14-2024 End: 05-14-2024 Bamboo flowsheet Martin Arango DPM Work Phone: [facility]ODI[facility] Start: 05-14-2024 End: 05-14-2024 Bamboo flowsheet Martin Arango DPM Work Phone: [facility] Start: 05-14-2024 End: 05-14-2024 Office outpatient visit 15 minutes Martin Arango DPM Work Phone: [facility] Comment on above: Capsulitis of metata rsophalangeal (MTP) joint of right foot (Primary Dx); Paronychia, toe, right; Paronychia of toe of left foot; Diabetes 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 polyneuropathy, with long-term current use of insulin ([facility]) Start: 05-14-2024 End: 05-14-2024 ambulatory MARTIN ARANGO Not Available Start: 05-11-2024 End: 05-11-2024 Telephone encounter Carlos Sanchez MD Work Phone: [facility] NE[facility] Start: 05-05-2024 End: 05-15-2024 Telephone encounter Patsora Alcantara DO Work Phone: [facility] ORTHOP[facility]ED[facility] Start: 05-04-2024 End: 05-04-2024 ambulatory [facility] Start: 04-30-2024 End: 04-30-[address] [facility] Start: 04-27-2024 End: 04-27-2024 ambulatory CARLOS SANCHEZ Not Available Start: 04-27-2024 End: 04-27-2024 Bamboo flowsheet Carlos Sanchez MD Work Phone: [facility] Start: 04-27-2024 End: 04-27-2024 Bamboo flowsheet Carlos Sanchez MD Work Phone: [facility] Start: 04-27-2024 End: 04-27-2024 Office outpatient visit 25 minutes Carlos Sanchez MD Work Phone: [facility] Comment on above: Nausea and vomiting, unspecified vomiting type (Primary Dx); Intractable chronic migraine without aura and without status migrainosus ([facility]); Diabetic peripheral neuropathy ([facility]) Start: 04-23-2024 End: 04-23-2024 Bamboo flowsheet Martin Arango DPM Work Phone: [facility] Start: 04-23-2024 End: 04-23-2024 Bamboo flowsheet Martin Arango DPM Work Phone: [facility] Start: 04-23-2024 End: 04-23-2024 ambulatory MARTIN ARANGO Not Available Start: 04-23-2024 End: 04-23-2024 Office outpatient visit 15 minutes Martin Arango DPM Work Phone: [facility] Comment on above: Capsulitis of metata rsophalangeal (MTP) joint of right foot (Primary Dx); Paronychia, toe, right; Paronychia of toe of left foot; Toe pain, left; Toe pain, right; Diabetes 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 polyneuropathy, with long-term current use of insulin ([facility]) Start: 04-23-2024 End: 04-23-2024 ambulatory MARTIN ARANGO Not Available Start: 04-21-2024 End: 04-21-2024 Office outpatient visit 15 minutes Pastora Alcantara DO Work Phone: [facility] Comment on above: Chronic pain of left knee; Primary osteoarthritis of left knee; Complex tear of medial meniscus of left knee as current injury, initial encounter Start: 04-21-2024 End: 04-21-2024 ambulatory PASTORA ALCANTARA Not Available Start: 04-15-2024 End: 04-15-2024 Bamboo flowsheet Galo Coronado PT Work Phone: [facility] Start: 04-15-2024 End: 04-15-2024 Bamboo flowsheet Galo Coronado PT Work Phone: [facility] PT Start: 04-15-2024 End: 04-15-2024 ambulatory Galo Rosa Ivonne PT Work Phone: [facility] PT Comment on above: Arthritis of left kn ee (Primary Dx); Chronic pain of left knee Start: 04-14-2024 End: 04-14-2024 Bamboo flowsheet Pastora Alcantara DO Work Phone: [facility] Start: 04-14-2024 End: 04-14-2024 Bamboo flowsheet Pastora Alcantara DO Work Phone: [facility]THOPAEDICS Start: 04-14-2024 End: 04-14-2024 Office outpatient visit 15 minutes Pastora Alcantara DO Work Phone: [facility]THOPAEDICS Comment on above: Left wrist pain (Anastasiia ros Dx); Left knee pain, unspecified chronicity; Ulnar neuropathy at elbow of left upper extremity Start: 04-14-2024 End: 04-14-2024 ambulatory PASTORA ALCANTARA Not Available Start: 04-13-2024 End: 04-13-2024 BamboInsero Healthheet Cj Talbot Apling HEATSET WINDER OPERATOR Work Phone: [facility] ORTHOPAEDICS Start: 04-13-2024 End: 04-13-2024 Bamboo Chompheet Cj Talbot Apling HEATSET WINDER OPERATOR Work Phone: [facility]THOPAEDICS Start: 04-13-2024 End: 04-13-2024 Office outpatient visit 15 minutes Cj Talbot Apling HEATSET WINDER OPERATOR Work Phone: [facility]OP[facility]EDICS Comment on above: Left elbow pain (Anastasiia ros Dx); Left wrist pain; Ulnar neuropathy at elbow of left upper extremity; Carpal tunnel syndrome of left wrist Start: 04-13-2024 End: 04-13-2024 ambulatory CJ Talbot APLING Not Available Start: 04-09-2024 End: 04-09-2024 Office outpatient visit 15 minutes Martin Arango DPM Work Phone: [facility] PODIATRY Comment on above: Toe pain, left (Prim patricia Dx); Toe pain, right; Capsulitis of metatarsophalangeal (MTP) joint of right foot; Paronychia, toe, right; Paronychia of toe of left foot Start: 04-09-2024 End: 04-09-2024 ambulatory MARTIN ARANGO Not Available Start: 04-08-2024 End: 04-08-2024 Bamboo flowsheet Cj Dahiana Zepeda HEATSET WINDER OPERATOR Work Phone: [facility]OPAEDICS Start: 04-08-2024 End: 04-08-2024 Bamboo flowsheet Cj Dahiana Apling HEATSET WINDER OPERATOR Work Phone: [facility]OP[facility] Start: 04-08-2024 End: 04-08-2024 Office outpatient new 30 minutes Cj Zepeda HEATSET WINDER OPERATOR Work Phone: [facility]OP[facility]EDICS Comment on above: Left knee pain, unsp ecified chronicity (Primary Dx); Arthritis of left knee Start: 04-08-2024 End: 04-08-2024 ambulatory CJ ZEPEDA Not Available Start: 04-02-2024 End: 04-02-2024 ambulatory MARTIN ARANGO Not Available Start: 03-31-2024 End: 03-31-2024 Patient encounter procedure DO Robert Furlong Work Phone: [facility] [address] Work Phone: Start: 03-31-2024 End: 03-31-2024 ambulatory DO Robert Furlong Work Phone: [facility] Work Phone: Start: 03-27-2024 End: 03-27-2024 ambulatory KURT CHAPMAN [facility] Start: 03-20-2024 End: 03-20-2024 ambulatory ANA CORONADO Not Available Start: 03-17-2024 End: 03-17-2024 ambulatory ANA CORONADO Not Available Start: 03-13-2024 End: 03-13-2024 ambulatory ANA CORONADO Not Available Start: 03-10-2024 End: 03-10-2024 ambulatory ANA CORONADO Not Available Start: 03-05-2024 End: 03-05-2024 ambulatory Andrew Eid [facility] Start: 03-05-2024 End: 03-05-2024 Pain Management Andrew Eid [facility] Start: 02-27-2024 End: 02-27-2024 ambulatory [place] Pamela [facility] Start: 02-26-2024 End: 02-26-2024 ambulatory KURT CHAPMAN [facility] Start: 02-26-2024 Encounter for other preprocedural examination [facility] Start: 02-21-2024 End: 02-21-2024 ambulatory SHMUELUSMAN LEVINE Not Available Start: 02-18-2024 End: 02-18-2024 ambulatory CATY JOSEY Not Available Start: 02-06-2024 End: 02-06-2024 ambulatory GALO CORONADO Not Available Start: 02-04-2024 End: 02-04-2024 ambulatory ANDRIA CARTER Not Available Start: 01-31-2024 End: 02-01-2024 Emergency department patient visit KAMILLEGordy [place] [facility] Start: 01-30-2024 End: 01-30-2024 ambulatory XXXX NONE [place] Start: 01-30-2024 End: 01-30-2024 Patient encounter procedure En Carmen [facility] Start: 01-24-2024 End: 01-24-2024 ambulatory CATY KELBLEY Not Available Start: 01-23-2024 End: 01-23-2024 ambulatory [facility] Start: 01-21-2024 End: 01-21-2024 ambulatory CATY KELBLEY Not Available Start: 01-20-2024 End: 01-20-2024 ambulatory [facility] Start: 01-20-2024 End: 01-20-2024 ambulatory CARLOS SANCHEZ Not Available Start: 01-17-2024 End: 01-17-[address] [facility] Start: 01-16-2024 End: 01-16-2024 ambulatory GALO Rosa IVONNE Not Available Start: 01-15-2024 End: 01-15-2024 ambulatory PA-C Cady Alva [place] Start: 01-15-2024 End: 01-15-2024 Pain Management Cady Alva [facility] Start: 01-01-2024 End: 01-01-2024 ambulatory Cady Alva [facility] Start: 01-01-2024 End: 01-01-2024 Pain Management Cadyblaine Alva [facility] Start: 12-31-2023 End: 12-31-2023 ambulatory POLLY MARAINO Facility:[facility] Start: 12-31-2023 End: 12-31-2023 Patient encounter procedure POLLY MARIANO [facility] Start: 12-26-2023 End: 12-26-2023 ambulatory MARTIN ARANGO Not Available Start: 12-18-2023 End: 12-18-[address] [facility] Start: 12-13-2023 End: 12-13-[address] [facility] Start: 12-12-2023 End: 12-12-2023 ambulatory MARTIN ARANGO Not Available Start: 12-11-2023 End: 12-11-2023 ambulatory Andrew Eid [facility] Start: 12-11-2023 End: 12-11-2023 Pain Management Andrew Eid [facility] Start: 11-21-2023 Refill [facility] Work Phone: [facility] Start: 11-21-2023 End: 11-21-2023 ambulatory MARTIN ARANGO Not Available Start: 11-20-2023 End: 11-20-2023 ambulatory CARLOS SANCHEZ Not Available Start: 11-06-2023 End: 11-06-2023 ambulatory Cady Alva [facility] Start: 11-06-2023 End: 11-06-2023 Pain Management Cady Alva [facility] Start: 11-04-2023 Refill Robert augustin DO Work Phone: [facility] Start: 11-01-2023 Orders Only Ros Rockwell [employer] Work Phone: [facility] Start: 10-31-2023 End: 10-31-2023 ambulatory MARTIN ARANGO Not Available Start: 10-30-2023 Refill Simi Petty [facility] [...] Not Available Start: 10-03-2023 End: 10-03-2023 ambulatory [place] Pamela [facility] Start: 10-03-2023 End: 10-03-2023 Office outpatient visit 15 minutes Robert Giron DO Work Phone: [facility] Comment on above: Pre-op evaluation (P rimary Dx); Hallux valgus of right foot; Essential hypertension; Diabetic peripheral neuropathy ([facility]) Start: 10-03-2023 End: 10-03-2023 Preprocedural examination done Robert Giron DO Work Phone: [facility] Work Phone: Start: 09-27-2023 Telephone encounter Carlos Sanchez MD Work Phone: [facility] Start: 09-26-2023 End: 09-26-2023 Office [...] 09-26-2023 Refill Robert augustin DO Work Phone: [facility] Start: 09-20-2023 Refill Carlos moreira MD Work Phone: [facility] 210 Comment on above: Chronic bilateral lo w back pain with bilateral sciatica; Diabetic peripheral neuropathy (CMS/HCC); Lumbar radiculopathy Start: 09-19-2023 End: 09-19-2023 ambulatory Valarie Yael Other [employer] Other Start: 09-19-2023 Telephone encounter Valarie Yael [facility] Start: 09-17-2023 End: 09-17-2023 ambulatory POLLY MARIANO Facility:[facility] Start: 09-17-2023 End: 09-17-2023 Patient encounter procedure POLLY MARIANO [facility] Start: 09-08-2023 Refill Robert augustin DO Work Phone: [facility] Start: 08-27-2023 End: 08-27-2023 ambulatory Valarie Yael Other [employer] Other Start: 08-27-2023 Office outpatient vi sit 25 minutes Valarie Yael [facility] Start: 08-05-2023 End: 08-06-2023 Emergency department patient visit PHIL NASH [facility] Start: 07-25-2023 End: 07-25-2023 Patient encounter procedure Elliott SOLIS [facility] Start: 07-05-2023 End: 07-05-2023 Patient encounter procedure Cady CALIX [facility] Start: 06-24-2023 End: 06-25-2023 ambulatory [facility] Start: 06-14-2023 End: 06-14-2023 Patient encounter procedure Cady Lima FIFI [facility] Start: 05-22-2023 End: 05-22-2023 Patient encounter procedure Inessa Grajeda [facility] Start: 05-20-2023 End: 05-20-2023 Patient encounter procedure Cady Lima FIFI [facility] Start: 04-04-2023 End: 04-04-2023 ambulatory Valarie Yael Other [employer] Other Start: 04-04-2023 Telephone encounter Valarie Yael [facility] Start: 04-03-2023 End: 04-03-2023 ambulatory DO Robert Furlong Work Phone: [facility] Work Phone: Start: 04-03-2023 End: 04-03-2023 Patient encounter procedure DO Robert Furlong Work Phone: [facility] [address] Work Phone: Start: 02-26-2023 End: 02-26-2023 ambulatory Valarie Yael Other [place] [employer] Other Start: 02-26-2023 Office outpatient vi sit 25 minutes Valarie Yael [facility] Start: 01-17-2023 End: 01-17-2023 Patient encounter procedure Zulema CRAMER [facility] Start: 12-22-2022 End: 01-16-[address] DOCTOR GALLO Facility:[facility] Start: 12-21-2022 End: 12-22-[address] DOCTOR GALLO Facility:[facility] Start: 11-29-2022 End: 11-29-[address] ROBERT GIRON Facility:[facility] Start: 11-26-2022 End: 11-26-[address] ROBERT GIRON Facility:[facility] Start: 11-21-2022 End: 11-21-2022 Admission to same day surgery center Martin Arango [facility] Start: 10-30-2022 End: 10-30-2022 Patient encounter procedure Elliott Solis [facility] Start: 10-29-2022 End: 10-29-2022 Patient encounter procedure Inessa Grajeda [facility] Start: 10-20-2022 End: 10-20-2022 Emergency department patient visit Santos Landry [facility] Start: 10-12-2022 End: 10-12-2022 Emergency department patient visit Santos Landry [facility] Start: 10-02-2022 End: 10-02-2022 Patient encounter procedure Inessa Grajeda [facility] Start: 09-14-2022 End: 11-01-2022 Pre-admission assessment Zulema CRAMER [facility] Start: 09-10-2022 End: 09-11-[address] DAVID VILLALOBOS . Facility:[facility] Start: 09-06-2022 End: 09-06-2022 Patient encounter procedure Zulema CRAMER [facility] Start: 09-04-2022 End: 09-04-2022 ambulatory Valarie Yael Other [employer] Other Start: 09-04-2022 Telephone encounter Valarie Yael [facility] Start: 08-10-2022 ambulatory ELIUD JAJA Facility :[facility] Start: 08-06-2022 End: 08-07-[address] DAVID VILLALOBOS . Facility:[facility] Start: 07-05-2022 End: 07-05-2022 ambulatory Valarie Yael Other [employer] Other Start: 07-05-2022 Office outpatient vi sit 25 minutes Valarie Yael [facility] Start: 07-04-2022 End: 07-05-2022 ambulatory VALARIE YAEL Facility:[facility] Start: 07-03-2022 End: 07-03-[address] SOLO CHA . Facility:[facility] Start: 06-26-2022 End: 11-28-2022 Recurring Zulema CRAMER [facility] Start: 06-08-2022 End: 06-09-[address] DOCTOR GALLO Facility:[facility] Start: 05-15-2022 End: 05-15-2022 Patient encounter procedure Cady L ERNIEPamela [facility] Start: 05-09-2022 End: 09-09-2022 Recurring Zulema CRAMER [facility] Start: 05-09-2022 End: 06-19-2022 Pre-admission assessment Zulema CRAMER [facility] Start: 04-30-2022 End: 05-01-[address] ROBERT GIRON Facility:[facility] Start: 04-09-2022 End: 05-02-2022 Pre-admission assessment Donaldo PEARSON [facility] Start: 04-06-2022 End: 04-07-2022 ambulatory ELIUD JAJA Facility:[facility] Start: 04-01-2022 End: 04-01-2022 ambulatory JAMAR CAROLA . Facility:[facility] Start: 03-28-2022 End: 03-29-[address] DOCTOR GALLO Facility:[facility] Start: 03-20-2022 End: 03-20-2022 Patient encounter procedure Elliott Solis [facility] Start: 03-13-2022 End: 03-13-2022 ambulatory JAMAR SRIVASTAVA . Facility:[facility] Start: 03-06-2022 End: 09-07-2022 Pre-admission assessment Elliott Solis [facility] Start: 03-06-2022 End: 03-06-2022 Patient encounter procedure Cady Amato ERNIEPamela [facility] Start: 02-08-2022 End: 06-20-2022 Recurring Zulema CRAMER [facility] Start: 02-08-2022 End: 02-09-2022 Pre-admission assessment Zulema CRAMER [facility] Start: 02-01-2022 End: 02-01-2022 Patient encounter procedure Zulema CRAMER [facility] Start: 01-11-2022 End: 05-02-2022 Recurring Zulema CRAMER [facility] Start: 01-11-2022 End: 01-11-2022 Patient encounter procedure Zulema CRAMER [facility] Start: 12-20-2021 End: 03-22-2022 Recurring Zulema CRAMER [facility] Start: 12-11-2021 End: 12-11-2021 Patient encounter procedure Donaldo PEARSON [facility] Start: 11-21-2021 End: 11-21-2021 Patient encounter procedure Inessa Grajeda [facility] Start: 10-12-2021 End: 01-30-2022 Recurring Martin Arango [facility] Start: 04-19-2021 End: 04-19-2021 Subsequent hospital visit by physician Joann Angela Work Phone: Radiology Comment on above: Pain [R52] Right elbow pain [M2 5.521] Procedures Date Procedure Procedure Detail Performing Clinician Start: 08-03-2024 Decompression of median nerve Cady Reshma barrios Start: 08-03-2024 Ulnar carpal complex ligament (body structure) Cady Alva Start: 07-29-2024 IGP,APTIMA HPV,AGE GDLN David Wilfredo DO Work Phone: Start: 07-29-2024 Microscopic observation [Identifier] in Cervix by Cyto stain Gricelda Hammond PT Start: 05-04-2024 Cyclic citrullinated peptide antibody [employer] Comment on above: Result Comment: Interpretation-------- <3 Negative >=3 Positive Performed By: #### C RT #### [facility] ([id number]) [address] [place] [address], [address] [place] [address] Start: 04-30-2024 Adult depression screening assessment Leonor Kunz [employer] Start: 04-08-2024 History of decompression of median nerve History of carpal tunnel surgery Leonor Kunz [employer] Start: 03-31-2024 CT of lungs DO [employer] Work Phone: Start: 12-13-2023 Follow-up visit Follow-up JOEL ALSTON Start: 12-11-2023 Epidural injection of lumbar spine using fluoroscopic guidance Cady Alva Comment on above: L4-L5 no relief, made worse Start: 10-03-2023 Adult depression screening assessment AdoTubeng DO Work Phone: Start: 09-27-2023 Mammography Robert Nakedng DO Work Phone: Start: 06-20-2023 Adult depression screening assessment [email or web address] [employer] DO Work Phone: Start: 04-03-2023 CT of lungs DO [employer] Work Phone: Start: 01-21-2023 Colonoscopy Robert Giron DO Work Phone: Start: 01-17-2023 Colonoscopy Cj Zepeda NP Work Phone: Start: 01-17-2023 Colonoscopy Zulema CRAMER [...] with synove ctomy Start: 06-26-2021 Esophagogastroduodenoscopy Inessa Kody clark Comment on above: dilation Start: 05-16-2021 Urodynamic studies Inessa Grajeda Start: 04-19-2021 End: 04-19-2021 Radex shoulder complete minimum 2 views Randi Farrell DO Work Phone: Start: 03-14-2020 Colonoscopy Xr 1 Work Phone: Start: 03-14-2020 Colonoscopy Inessa Nicci Start: 03-03-2020 Catheterization of left heart Inessa [...] lithotripsy of calculus of kidney Inessa Grajeda H/O: hysterectomy H/O: hysterectomy David Wilfredo DO Work Phone: History of decompres anna of median nerve History of carpal tunnel surgery DO Robert Giron Work Phone: Hysterectomy Inessa Grajeda ingrown toenail removal 10 M [employer] Comment on above: x3 ingrown toenail removal 11 M [employer] Comment on above: x3 ingrown toenail removal 12 A [employer] Comment on above: x3 ingrown toenail removal [...] Screening [facility] malignant [facility]oplasm [facility] Start: 01-17-2033 Screening for malignant neoplasm of colon [facility] Start: 07-29-2029 Screening for malignant neoplasm of cervix [facility] Start: 09-15-2025 Adult BMI Screening Adult BMI Screening [facility] Start: 09-15-2025 Tobacco Screening Tobacco Screening [facility] Start: 07-27-2025 Tobacco Screening Tobacco Screening [facility] Start: 07-07-2025 Adult BMI Screening Adult BMI Screening [facility] Start: 07-07-2025 Tobacco Screening Tobacco Screening [facility] Start: 06-11-2025 Adult BMI Screening Adult BMI Screening [facility] Start: 06-11-2025 Tobacco Screening Tobacco Screening [facility] Start: 06-05-2025 Tobacco Screening Tobacco Screening [facility] Start: 05-20-2025 Adult BMI Screening Adult BMI Screening [facility] Start: 05-20-2025 Tobacco Screening Tobacco Screening [facility] Start: 05-18-2025 Adult BMI Screening Adult BMI Screening [facility] Start: 05-18-2025 Tobacco Screening Tobacco Screening [facility] Start: 04-30-2025 Depression Screening Depression Screening [facility] Start: 01-05-2025 ambulatory Ambulatory Facility: [facility] Start: 12-15-2024 End: 12-15-2024 Patient encounter procedure 12/15/2024 3:30 PM EDT Office Visit [facility] [address] [place] [address] Robert Giron, [address], [facility] [address] [facility] Start: 12-14-2024 End: 12-14-2024 Patient encounter procedure 12/14/2024 1:20 PM EDT Office Visit [facility] [address] [facility] [address] [place] [address] Carlos Sanhcez MD [address] [facility] [address] [address] [facility] Start: 11-11-2024 End: 11-11-2024 Patient encounter procedure 11/11/2024 1:00 PM EDT Office Visit [facility] [address] [facility] [address] [place] [phone] Nikki Vergara HEATSET WINDER OPERATOR [address], [address] [phone] [facility] Start: 10-03-2024 Adult BMI Screening Adult BMI Screening [facility] Start: 10-03-2024 Depression Screening Depression Screening [facility] Start: 10-03-2024 Tobacco Screening Tobacco Screening [facility] Start: 09-30-2024 End: 09-30-2024 Patient encounter procedure 09/30/2024 1:00 PM EST Appointment [facility] [address] [place] [address] [facility] Start: 09-27-2024 Screening for malignant neoplasm of breast Mammogram [facility] Start: 09-24-2024 End: 09-24-2024 ambulatory [facility] Start: 09-22-2024 End: 09-22-2024 ambulatory 09/22/2024 1:30 PM EST Treatment [facility] [address] [facility] [address] [place] [address] Gricelda Hammond, PT [facility] Start: 09-17-2024 End: 09-17-2024 ambulatory 09/17/2024 12:30 PM EST Treatment [facility] [address] [facility] [address] [place] [address] Gricelda Hammond, PT [facility] Start: 09-16-2024 End: 09-16-2025 Polysomnography [facility] Routine CELINE (obstructive sleep apnea) Chronic migraine without aura without status migrainosus, not intractable (CMS/HCC) Cognitive decline Expected: 09/16/2024 (Approximate), Expires: 09/16/2025 [facility] Work Phone: Comment on above: Expected: 09/16/2024 (Approximate), Expi res: 09/16/2025 Start: 09-16-2024 End: 09-16-2024 Patient encounter procedure [facility] Comment on above: Arrived Start: 09-15-2024 End: 09-15-2024 Patient encounter procedure 09/15/2024 3:30 PM EST Office Visit [facility] [address] [place] [address] Robert Giron, [address] [place] [address] [facility] Start: 09-15-2024 End: 09-15-2024 ambulatory 09/15/2024 12:30 PM EST Treatment [facility] [address] [facility] [address] [place] [address] Shmuel Levine, AIR AND HYDRONIC BALANCING TECHNICIAN [facility] Start: 09-10-2024 End: 09-10-2024 ambulatory 09/10/2024 12:30 PM EST Treatment [facility] [address] [facility] [place] [address] Shmuel Levine, AIR AND HYDRONIC BALANCING TECHNICIAN [facility] Start: 09-07-2024 End: 09-07-2024 ambulatory [facility] Start: 09-04-2024 End: 09-04-2024 ambulatory 09/04/2024 2:30 PM EST Treatment [facility] [address] [facility] [place] [address] Caty Malhotra, AIR AND HYDRONIC BALANCING TECHNICIAN [facility] Start: 09-03-2024 End: 09-03-2024 ambulatory 09/03/2024 12:30 PM EST Treatment [facility] [address] [facility] [place] [address] Gricelda Hammond, PT [facility] Start: 09-02-2024 End: 09-02-2024 Patient encounter procedure 09/02/2024 8:10 AM EST Office Visit [facility] [address] [facility] [place] [phone] David Villalobos DO [address] [place] [address] [facility] Start: 09-01-2024 End: 09-01-2024 ambulatory [facility] PT Comment on above: Arrived Start: 08-10-2024 End: 08-10-2024 Patient encounter procedure [facility] ISAMAR R Comment on above: Arrived Start: 08-05-2024 Adult BMI Screening Adult BMI Screening [facility] Start: 08-05-2024 Tobacco Screening Tobacco Screening [facility] Start: 07-30-2024 End: 07-30-2024 Patient encounter procedure 07/30/2024 1:30 PM EST Office Visit [facility] [address] [place] [address] Robert Giron, DO [address] [facility] [address] [facility] Start: 07-29-2024 End: 07-29-2025 DXA Skeletal system Views for bone density DEXA bone density Imaging Routine Osteoporosis, post-menopausal ([facility]) Expected: 07/29/2024 (Approximate), Expires: 07/29/2025 [facility] Work Phone: Comment on above: Expected: 07/29/2024 (Approximate), Expi res: 07/29/2025 Start: 07-29-2024 End: 07-29-2024 Patient encounter procedure 07/29/2024 1:30 PM EST Office Visit [facility] [address] [place] [address] David Villalobos DO [address] [facility] [place] [address] Arrived [facility] Comment on above: Arrived Start: 07-27-2024 End: 07-27-2024 Telemedicine consultation with patient 07/27/2024 2:15 PM EST Telemedicine [facility] [address] [phone] Duane Nicole MD [address] [phone] [facility] Start: 07-27-2024 End: 07-27-2024 Patient encounter procedure [facility] Anthony ysannie Rheumatology Start: 07-10-2024 Adult BMI Follow Up Plan Adult BMI Follow Up Plan [facility] Start: 07-08-2024 Diabetic foot examination Diabetic Foot Exam [facility] Start: 07-08-2024 End: 07-08-2024 Patient encounter procedure 07/08/2024 2:00 PM EST Office Visit [facility] [address] [place] [phone] Alexsandra Smart, MYRNA [address] [place] [address] [facility] Start: 07-07-2024 End: 07-07-2024 Patient encounter procedure 07/07/2024 1:00 PM EST Office Visit [facility] [address] [facility] [place] [phone] David Villalobos, [address] [place] [address] [facility] Start: 06-20-2024 Depression Screening Depression Screening [facility] Start: 06-19-2024 End: 06-19-2024 Admission to same day surgery center 06/19/2024 8:51 AM EDT - 06/19/2024 8:58 AM EDT Surgery [facility] - Pain Procedures [address] [place] [phone] Avi Maharaj MD [address] [place] [address] INJECTION BLOCK NERVE KNEE Left Genicular NB [51135 (CPT )] [facility] Procedures Comment on above: INJECTION BLOCK NERVE KNEE Left Genicula r NB [[id number] ([facility] )] Start: 06-19-2024 End: 06-19-2024 Injection aa&/strd genicular nrv branches w/img INJECTION BLOCK NERVE KNEE Primary osteoarthritis of left knee Chronic pain of left knee 06/19/2024 8:51 AM EDT [facility] Start: 06-19-2024 Subsequent hospital visit by physician 06/19/2024 8:51 AM EDT Hospital Encounter [facility] Procedures [address] [place] [phone] Avi Maharaj MD [address] [place], [place] [phone] [facility] Start: 06-18-2024 End: 06-18-2024 Patient encounter procedure 06/18/2024 3:00 PM EDT Office Visit [facility] 112 [facility] 120 [place] [phone] Martin Arango DPM [address]006 [facility] [address] [place] [address] Arrived [facility] Comment on above: Arrived Start: 06-15-2024 End: 06-15-2024 Patient encounter procedure 06/15/2024 11:00 AM EDT Appointment [facility] - Ultrasound [address] [place] [phone] [facility] - Ultrasound Start: 06-11-2024 End: 06-11-2024 Patient encounter procedure 06/11/2024 3:30 PM EDT Office Visit Izabel Bravo [facility] - Medical Oncology [facility] [place] [phone] Brandon Simpson MD [address] [facility] [address] [place] [address] Izabel Bravo [facility] - Medical Oncology Start: 05-20-2024 End: 05-20-2024 Patient encounter procedure 05/20/2024 11:00 AM EDT Office Visit [facility] [address] [place] [phone] Alexsandra Smart PA-C [address] [place] [address] [facility] Start: 05-14-2024 End: 05-14-2024 Patient encounter procedure [facility] P[facility] Comment on above: Capsulitis of metatarsophalangeal (MTP) joint of right foot (Primary Dx); Paronychia, toe, right; Paronychia of toe of left foot; Diabetes 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 polyneuropathy, with long-term current use of insulin (CMS/[facility]) Start: 04-27-2024 End: 04-27-2024 Patient encounter procedure 04/27/2024 2:00 PM EDT Office Visit [facility] NEUR [address] [facility] [address] [place] [address] Carlos Sanchez MD 5052 [facility] [address] [phone] [facility] NE[facility] Start: 04-23-2024 End: 04-23-2024 Professional / ancillary services management 04/23/2024 10:20 AM EDT Ancillary Procedure [facility] [address] [facility] 120 [place] [phone] Arrived [facility] Comment on above: Arrived Start: 04-23-2024 End: 04-23-2024 Patient encounter procedure [facility] Comment on above: Capsulitis of metatarsophalangeal (MTP) joint of right foot (Primary Dx); Paronychia, toe, right; Paronychia of toe of left foot; Toe pain, left; Toe pain, right; Diabetes 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 polyneuropathy, with long-term current use of insulin (CMS/HCC) Start: 04-21-2024 End: 04-21-2024 Patient encounter procedure 04/21/2024 1:00 PM EDT Office Visit [facility] [address] [place] [address] Pastora Alcantara DO [address] [place] [address] [facility] Start: 04-19-2024 Covid-19 Vaccine ( season) Covid-19 Vaccine () [facility] Start: 04-19-2024 Influenza vaccination [facility] Start: 04-16-2024 End: 04-16-2024 Patient encounter procedure 04/16/2024 1:50 PM EDT Office Visit [facility] [address] [facility] [address] [place] [address] Martin Arango DPM [address] [address] [facility] Start: 04-15-2024 End: 04-15-2024 ambulatory [facility] PT Comment on above: Arthritis of left knee Start: 04-14-2024 End: 04-14-2024 Patient encounter procedure [facility] OR[facility] OPAEDICS Comment on above: Left knee pain, unspecified chronicity ( Primary Dx); Left wrist pain; Ulnar neuropathy at elbow of left upper extremity Start: 04-13-2024 End: 04-13-2024 Patient encounter procedure [facility] Comment on above: Left elbow pain (Primary Dx); Left wrist pain; Ulnar neuropathy at elbow of left upper extremity Start: 04-09-2024 End: 04-09-2024 Patient encounter procedure 04/09/2024 10:30 AM EDT Office Visit [facility] [address] [facility] 120 [place] [address] Martin Arango DPM [address] [address] [facility] Start: 04-08-2024 End: 04-08-2024 Patient encounter procedure 04/08/2024 12:30 PM EDT Office Visit [facility] [address] [facility] [address] [place] [address] Cj Zepeda, HEATSET WINDER OPERATOR [address] [facility] 150 [place] [address] Left knee pain, unspecified chronicity (Primary Dx); Arthritis of left knee; Acute medial meniscus tear of left knee, initial encounter [facility] Comment on above: Left knee pain, unspecified chronicity ( Primary Dx); Arthritis of left knee; Acute medial meniscus tear of left knee, initial encounter Start: 10-28-2023 End: 10-28-2023 Patient encounter procedure 10/28/2023 3:20 PM EDT Office Visit [facility] NEUR [address] [facility] [address] [place] [address] Carlos Sanchez MD 8874 [facility] [address] [address] [facility] NE[facility] Start: 10-23-2023 Urine screening for protein Urine Microalbumin [facility] Start: 10-17-2023 End: 10-17-2023 Patient encounter procedure [facility] Start: 10-09-2023 End: 10-09-2023 Patient encounter procedure 10/09/2023 8:30 AM EST Procedure Visit [facility] EXT DEP Martin Arango, SALLIE 3006 [facility] [address] [place] [address] [facility] EXT DEP Start: 10-03-2023 End: 10-03-2023 Patient encounter procedure 10/03/2023 3:40 PM EST Office Visit [facility] [address] [place] [phone] Robert Giron, DO [address], [place] [address] [facility] Internal Medicine - Family Medicine Start: 09-26-2023 End: 09-26-2023 Patient encounter procedure 09/26/2023 3:10 PM EST Office Visit [facility] [address] [facility] [address] [place] [phone] Martin Arango DPM [address] [facility] [address] [place] [address] [facility] Start: 09-16-2023 End: 09-16-2023 ambulatory 09/16/2023 8:30 AM EST Monitor [facility] Monitor [address] [facility] [address] [place] [phone] [facility] Monitor Start: 09-10-2023 Screening for malignant neoplasm of breast Mammogram [facility] Start: 09-27-2021 Diabetes Screening Diabetes Screening [facility] Start: 03-14-2021 Screening for malignant neoplasm of colon [facility] Start: 2020 Administration of varicella zoster vaccine Zoster (Shingles) Vaccine (1 of 2) [facility] Start: 2020 Shingrix Vaccine (1 of 2) Shingrix Vaccine (1 of 2) [facility] Start: 2015 Lipid panel Lipid Screening [facility] Start: 2015 Screening for malignant neoplasm of colon [facility] Start: 2010 Screening for malignant neoplasm of breast Mammogram Screening [facility] Start: 2000 Screening for malignant neoplasm of cervix [facility] Start: 1991 Screening for malignant neoplasm of cervix [facility] Start: 1989 DTaP,Tdap and Td Vaccines (1 - Tdap) DTaP,Tdap and Td Vaccines (1 - Tdap) [facility] Start: 1989 Hepatitis B Vaccine (1 of 3 - 19+ 3-dose series) Hepatitis B Vaccine (1 of 3 - 19+ 3-dose series) [facility] Start: 1989 Urine microalbumin profile DTaP,Tdap,Td Vaccine (1 - Tdap) [facility] Start: 1988 Anxiety Screening Anxiety Screening [facility] Start: 1988 Depression Screening Depression Screening [facility] Start: 1988 Hepatitis C screening Hepatitis C Screening [facility] Start: 1988 HIV screening HIV Screening [facility] Start: 1976 Pneumococcal vaccination Pneumococcal Vaccine (1 of 2 - PCV) [facility] Start: 1970 Glaucoma screening Diabetic Ophthalmology Exam [facility] Start: 1970 Screening for malignant neoplasm of colon [facility] Start: 1970 Tobacco Counseling Tobacco Counseling [facility] End: 09-15-2025 Comprehensive metabolic 2000 panel - Serum or Plasma Comprehensive metabolic panel Lab Routine Essential hypertension 1 Occurrences starting 09/15/2024 until 09/15/[address] [facility] Comment on above: 1 Occurrences starting 09/15/2024 until 09/15/2025 End: 09-15-2025 Drug Screen, Urine Drug Screen, Urine Lab Routine Medication management 1 Occurrences starting 09/15/2024 until 09/15/[address] [facility] Comment on above: 1 Occurrences starting 09/15/2024 until 09/15/2025 End: 09-15-2025 Hemoglobin A1c/Hemoglobin.total in Blood Hemoglobin A1c Lab Routine Diabetes mellitus without complication ([facility]) 1 Occurrences starting 09/15/2024 until 09/15/2025 [employer] Work Phone: Comment on above: 1 Occurrences starting 09/15/2024 until 09/15/2025 Injection aa&/strd genicular nrv branches w/img INJECTION BLOCK NERVE KNEE Primary osteoarthritis of left knee Chronic pain of left knee [facility] End: 09-15-2025 Lipid panel Lipid panel Lab Routine Mixed hyperlipidemia 1 Occurrences starting 09/15/2024 until 09/15/2025 [employer] Comment on above: 1 Occurrences starting 09/15/2024 until 09/15/2025 THIN PREP TIS PAP AN D HR HPV DNA THIN PREP TIS PAP AND HR HPV DNA Pathology and Cytology Routine Well woman exam with routine gynecological exam H/O: hysterectomy Ordered: 07/29/2024 [facility] Comment on above: Ordered: 07/29/2024 XR Foot - right 3 Views XR foot 3+ views right Imaging Routine Paronychia, toe, right 04/23/2024 10:16 AM EDT [facility] Work Phone: Immunizations Immunization Date Immunization Notes Care Provider Zeinab yeung 05-12-2024 influenza virus vaccine, unspecified formulation Martin Brown DPM Work Phone: [facility] 03-09-2024 zoster vaccine recombinant Leonor Kunz DISP[employer]ER [employer] [facility] 06-24-2023 Covid-19,mrna, Lnp-s , Pf, 50mcg/0.5ml 12+ Robert Giron DO Work Phone: [facility] [employer] 06-24-2023 influenza virus vaccine, unspecified formulation POLLY MARIANO [facility] 04-15-2020 influenza virus vaccine, unspecified formulation Cady FIFI [facility] 06-02-2019 hepatitis A vaccine, adult dosage Cadyblaine CALIX [facility] 11-21-2018 hepatitis A vaccine, adult dosage Cadyblaine CALIX [facility] NEGATED: Highlighted row has not occurred!04-29-2023 influenza virus vaccine, unspecified formulation Cadyblaine CALIX [facility] NEGATED: Highlighted row has not occurred!10-29-2022 influenza virus vaccine, unspecified formulation Inessa Grajeda [facility] NEGATED: Highlighted row has not occurred!09-14-2022 influenza virus vaccine, unspecified formulation Inessa Grajeda [facility] NEGATED: Highlighted row has not occurred!05-09-2022 influenza virus vaccine, unspecified formulation Cady FIFI [facility] NEGATED: Highlighted row has not occurred!12-11-2021 influenza virus vaccine, unspecified formulation Donaldo PEARSON [facility] NEGATED: Highlighted row has not occurred!12-11-2021 SARS-CoV-2 (COVID-19) Ad26 vaccine, recombinant Donaldo PEARSON [facility] NEGATED: Highlighted row has not occurred!11-07-2021 influenza virus vaccine, unspecified formulation Inessa Grajeda [facility] NEGATED: Highlighted row has not occurred!09-04-2021 SARS-CoV-2 (COVID-19) Ad26 vaccine, recombinant Inessa Grajeda [facility] Payers Date Payer Category Payer Self-pay [id number] 2023 Medicaid O [facility] [id number] 2022 Medicaid [id number] 2019 Unknown MMO MMO SUPERMED PPO [id number] 2019-2022 [address] [place] [address] PPO [id number] 2017 Private Health Insurance [facility] MEDICAID [id number] 2004 Medicaid [id number]. [id number] 1970 Unknown [id number] 2.16.840.1.066746.3.579.2. 593 1970 Unknown [id number] 2.16.840.1.885091.3.579.2. 593 1970 Unknown [id number] 2.16.840.1.526424.3.579.2. 593 1970 Unknown [id number] 2.16.840.1.547111.3.579.2. 593 1970 Unknown [id number] 2.16.840.1.309310.3.579.2. 593 1970 Unknown [id number] 2.16.840.1.531664.3.579.2. 593 1970 Unknown [id number] 2.16.840.1.030005.3.579.2. 593 1970 Unknown [id number] 2.16.840.1.059232.3.579.2. 593 1970 Unknown [id number] 2.16.840.1.648047.3.579.2. 593 1970 Unknown [id number] 2.16.840.1.902939.3.579.2. 593 1970 Unknown [id number] 2.16.840.1.668322.3.579.2. 593 1970 Unknown [id number] 2.16.840.1.241794.3.579.2. 593 1970 Unknown [id number] 2.16.840.1.875196.3.579.2. 593 1970 Unknown [id number] 2.16.840.1.262820.3.579.2. 593 1970 Unknown [id number] 2.16.840.1.400981.3.579.2. 593 1970 Unknown [id number] 2.16.840.1.559218.3.579.2. 176 1970 Unknown [id number] 2.16.840.1.458174.3.579.2. 1286 1970 Unknown [id number] 2.16.840.1.809543.3.579.2. 1286 1970 Unknown [id number] 2.16.840.1.976420.3.579.2. 1286 1970 Unknown [id number] 2.16.840.1.552850.3.579.2. 6 1970 Unknown [id number] 2.16.840.1.373239.3.579.2. 1286 1970 Unknown [id number] 2.16.840.1.857275.3.579.2. 1286 1970 Unknown [id number] 2.16.840.1.059634.3.579.2. 1286 1970 Unknown [id number] 2.16.840.1.225172.3.579.2. 6 1970 Unknown [id number] 2.16.840.1.498199.3.579.2. 1286 1970 Unknown [id number] 2.16.840.1.835787.3.579.2. 1286 1970 Unknown [id number] 2.16.840.1.097453.3.579.2. 1286 1970 Unknown [id number] 2.16.840.1.594010.3.579.2. 1285 1970 Unknown [id number] 2.16.840.1.106094.3.579.2. 1285 1970 Unknown [id number] 2.16.840.1.675297.3.579.2. 1285 1970 Unknown [id number] 2.16.840.1.577400.3.579.2. 1285 1970 Unknown [id number] 2.16.840.1.495176.3.579.2. 1285 1970 Unknown [id number] 2.16.840.1.833971.3.579.2. 1285 1970 Unknown [id number] 2.16.840.1.987506.3.579.2. 6 1970 Unknown [id number] 2.16.840.1.402486.3.579.2. 72 1970 Unknown [id number] 2.16.840.1.110237.3.579.2. 1970 Unknown [id number] 2.16.840.1.291010.3.579.2. 727 1970 Unknown [id number] 2.16.840.1.290064.3.579.2. 72 1970 Unknown [id number] 2.16.840.1.598494.3.579.2. 727 1970 Unknown [id number] 2.16.840.1.495772.3.579.2. 72 1970 Unknown [id number] 2.16.840.1.981816.3.579.2. 727 1970 Unknown [id number] 2.16.840.1.501193.3.579.2. 727 1970 Unknown [id number] 2.16.840.1.053338.3.579.2. 727 1970 Unknown [id number] 2.16.840.1.464746.3.579.2. 727 1970 Unknown [id number] 2.16.840.1.533797.3.579.2. 727 1970 Unknown [id number] 2.16.840.1.006393.3.579.2. 1286 1970 Unknown [id number] 2.16.840.1.141762.3.579.2. 1286 1970 Unknown [id number] 2.16.840.1.881539.3.579.2. 1286 1970 Unknown [id number] 2.16.840.1.393872.3.579.2. 1286 1970 Unknown [id number] 2.16.840.1.328615.3.579.2. 1286 1970 Unknown [id number] 2.16.840.1.012363.3.579.2. 1286 1970 Unknown [id number] 2.16.840.1.581962.3.579.2. 1286 1970 Unknown [id number] 2.16.840.1.806921.3.579.2. 1286 1970 Unknown [id number] 2.16.840.1.848399.3.579.2. 1286 1970 Unknown [id number] 2.16.840.1.742931.3.579.2. 1286 1970 Unknown [id number] 2.16.840.1.498210.3.579.2. 1259 1970 Unknown [id number] 2.16.840.1.584245.3.579.2. 1259 1970 Unknown [id number] 2.16.840.1.773532.3.579.2. 1259 1970 Unknown [id number] 2.16.840.1.862903.3.579.2. 1258 1970 Unknown [id number] 2.16.840.1.190070.3.579.2. 1258 1970 Unknown [id number] 2.16.840.1.915500.3.579.2. 1258 1970 Unknown [id number] 2.16.840.1.281139.3.579.2. 1258 1970 Unknown [id number] 2.16.840.1.344844.3.579.2. 1258 1970 Unknown [id number] 2.16.840.1.157028.3.579.2. 1258 1970 Unknown [id number] 2.16.840.1.411173.3.579.2. 1258 1970 Unknown [id number] 2.16.840.1.165446.3.579.2. 1258 1970 Unknown [id number] 2.16.840.1.068665.3.579.2. 1258 1970 Unknown [id number] 2.16.840.1.119849.3.579.2. 1258 1970 Unknown [id number] 2.16.840.1.937252.3.579.2. 1258 1970 Unknown [id number] 2.16.840.1.737818.3.579.2. 1258 1970 Unknown [id number] 2.16.840.1.304055.3.579.2. 1258 1970 Unknown [id number] 2.16.840.1.865793.3.579.2. 1258 1970 Unknown [id number] 2.16.840.1.744393.3.579.2. 1258 1970 Unknown [id number] 2.16.840.1.781295.3.579.2. 9 1970 Unknown [id number] 2.16.840.1.522142.3.579.2. 1258 1970 Unknown [id number] 2.16.840.1.888910.3.579.2. 1258 1970 Unknown [id number] 2.16.840.1.911851.3.579.2. 1258 1970 Unknown [id number] 2.16.840.1.467168.3.579.2. 1258 1970 Unknown [id number] 2.16.840.1.001783.3.579.2. 1258 1970 Unknown [id number] 2.16.840.1.900685.3.579.2. 1258 1970 Unknown [id number] 2.16.840.1.914393.3.579.2. 1258 1970 Unknown [id number] 2.16.840.1.945758.3.579.2. 1258 1970 Unknown [id number] 2.16.840.1.600403.3.579.2. 1258 1970 Unknown [id number] 2.16.840.1.678533.3.579.2. 1258 1970 Unknown [id number] 2.16.840.1.804306.3.579.2. 1258 1970 Unknown [id number] 2.16.840.1.672988.3.579.2. 1258 1970 Unknown [id number] 2.16.840.1.498307.3.579.2. 1258 1970 Unknown [id number] 2.16.840.1.452115.3.579.2. 1258 1970 Unknown [id number] 2.16.840.1.769023.3.579.2. 1258 1970 Unknown [id number] 2.16.840.1.826464.3.579.2. 1259 1970 Unknown [id number] 2.16.840.1.664103.3.579.2. 9 1970 Unknown [id number] 2.16.840.1.860789.3.579.2. 9 1970 Unknown [id number] 2.16.840.1.326230.3.579.2. 1258 1970 Unknown [id number] 2.16.840.1.066081.3.579.2. 1258 1970 Unknown [id number] 2.16.840.1.138545.3.579.2. 1258 1970 Unknown [id number] 2.16.840.1.030038.3.579.2. 1258 1970 Unknown [id number] 2.16.840.1.280506.3.579.2. 1258 1970 Unknown [id number] 2.16.840.1.892334.3.579.2. 9 1959 Medicaid [id number] 1959 Private Health Insurance [id number] 1959 Unknown [id number] 1959 Unknown [id number] Unknown [id number] 2.16.840.1.106005.3.579.2. 531 Social History Date Type Detail Facility Start: 11-07-2021 End: 08-13-2024 Tobacco smoking status Heavy tobacco smoker (finding) [facility] Comment on above: 1 pack per day smoke r Start: 07-08-2023 End: 08-10-2024 Sex Assigned At Female [facility] Tobacco [facility] Comment on above: 1 ppd smokes 1 ppd. Tobacco smoking status Never [facility] Start: 1970 Sex Assigned At Female F [facility] Tobacco smoking status No Smokin g Status Entered [facility] Start: 01-04-2022 End: 04-15-2023 Tobacco smoking status NHIS Smoker (finding) [facility] Start: 07-08-2023 Tobacco smoking stat us NHIS Ex-smoker [facility] Start: 08-19-1985 End: 04-15-2023 History of tobacco use Cigarette Smoker [facility] Start: 07-08-2023 End: 08-10-2024 Cigarettes smoked current (pack per day) - Reported 0.8 [facility] Start: 07-08-2023 End: 04-08-2024 Tobacco use and exposure Smokeless tobacco non-user [facility] Start: 08-05-2023 End: 08-10-2024 Alcohol intake Ex-drinker (finding) [facility] Has the [employer], or [employer] threatened to shut off services in your home in past 12Mo No [facility] Are you now , , , , never or living with a partner? [facility] How often to you hav e a drink containing alcohol? Monthly or less [facility] How many standard drinks containing alcohol do you have on a typical day? 3 or 4 [facility] How often do you hav e 6 or more drinks on 1 occasion? Never [facility] How hard is it for y ou to pay for the very basics like food, housing, medical care, and heating Not very hard [facility] Do you feel stress - tense, restless, nervous, or anxious, or unable to sleep at night because your mind is troubled all the time - these days [OSQ] To some extent [facility] Start: 07-08-2023 Tobacco Comment Smoke 1 PPD x 10 yea rs [facility] Start: 1970 Sex Assigned At Not on file P [facility] Start: 08-19-1985 End: 04-08-2024 Tobacco smoking status NHIS Smokes tobacco daily [facility] History of tobacco use Passive smoker [facility] Start: 02-21-2023 Alcohol Comment caffeine 1-2 c ups per day [facility] [facility] Start: 06-30-2020 Alcoholic beverage intake Current non-drinker of alcohol (finding) [facility] Start: 02-28-2015 Tobacco Comment Vaporization a lso. started to smoke at 12 [facility] Start: 03-20-2021 End: 04-19-2021 Exposure to SARS-CoV-2 (event) Not sure [facility] How many standard drinks containing [...] [facility] Start: 03-24-2015 Sex Female (finding) [facility] Medical Equipment Procedure Code Equipment Code Equipment Origin al Text Equipment Identifier Dates Phacoemulsification of cataract with intraocular lens implantation Posterior-chamber intraocular lens, pseudophakic ()[id number] FDA Start: 12-14-2021 Phacoemulsification of cataract with intraocular lens implantation Posterior-chamber intraocular lens, pseudophakic ()[id number] FDA Start: 01-04-2022 HAMMERTOE REPAIR Brown DPM, [...] Non Biological Foot R FDA Start: 11-21-2022 1 strip by other route in the morning. [id number] Start: 09-23-2024 Inject 1 Lancet under the skin in the morning. [id number] Start: 09-23-2024 Functional Status Date Assessment Result Facility 08-26-2024 Functional Status N/A [facility] 08-13-2024 Functional Status N/A [facility] 03-05-2024 Functional Status N/A [facility] 01-30-2024 Functional Status N/A [facility] 01-15-2024 Functional Status N/A [facility] 01-01-2024 Functional Status N/A [facility] 12-31-2023 Functional Status N/A [facility] 11-06-2023 Functional Status N/A [facility] 09-17-2023 Functional Status N/A [facility] 07-25-2023 Functional Status No [facility] 07-05-2023 Functional Status No [facility] 05-20-2023 Functional Status No [facility] 01-17-2023 Functional Status N/A [facility] 10-30-2022 Functional Status No [facility] 10-29-2022 Functional Status N/A [facility] 10-20-2022 Functional Status N/A [facility] 10-12-2022 Functional Status N/A [facility] 10-02-2022 Functional Status N/A [facility] 09-06-2022 Functional Status N/A [facility] 05-15-2022 Functional Status No [facility] 03-06-2022 Functional Status N/A [facility] Clinical Notes 04-19-2021 to 09-29-2024 Telephone Encounter - Odette Jacobs - 09/29/2024 11:01 AM ESTTelephone Encounter - Odette Jacobs - 09/29/2024 11:01 AM ESTTelephone Encounter - Odette Jacobs - 09/24/2024 9:56 AM EST Note Date & Type Note Facility 09-29-2024 Telephone encounter Note Contacted to check status and check re: PO w/ doctor. She said she was advised to quit smoking for 2 weeks; but was not given any recommendation on more PT. She said the doctor noted strength in L leg has increased; she mentioned her R leg giving problems now. She then indicated having a hand / arm referral and will try to have sent over or will provide to be authed. I requested if scheduling on is needed; but she'd like to hold-off. I indicated her last PT was 2/5 and being contacted prior 30 days out is needed to cont off PT referral for L knee / leg. If pain is primarily in the R leg/ knee, a new referral will be needed as well to treat. She said she acknowledges and will contact re: more PT / or new PT / or if OT is needed. [facility] 09-29-2024 Miscellaneous Notes Contacted to check status and check re: PO w/ doctor. She said she was advised to quit smoking for 2 weeks; but was not given any recommendation on more PT. She said the doctor noted strength in L leg has increased; she mentioned her R leg giving problems now. She then indicated having a hand / arm referral and will try to have sent over or will provide to be authed. I requested if scheduling on is needed; but she'd like to hold-off. I indicated her last PT was 2/5 and being contacted prior 30 days out is needed to cont off PT referral for L knee / leg. If pain is primarily in the R leg/ knee, a new referral will be needed as well to treat. She said she acknowledges and will contact re: more PT / or new PT / or if OT is needed. She had called noting her migraine from yesterday has only gotten worse today; she cx. I noted today was her last scheduled; she said she has a fu on 09/28 w/ doctor. I requested a call back post fu and she said she will. If no hearback I will contact later 09/29. documented in this encounter [facility] 09-24-2024 Telephone encounter Note She had called noting her migraine from yesterday has only gotten worse today; she cx. I noted today was her last scheduled; she said she has a fu on 09/28 w/ doctor. I requested a call back post fu and she said she will. If no hearback I will contact later 09/29. [facility] 09-22-2024 Note Attestation signed by Lan Rubi MD at 09/24/2024 9:45 AM GC: I saw this patient. I personally performed the critical/cunningham portions that determines the level of service. I was directly involved in the management and treatment plan of the patient. I reviewed resident's note and agree with the documentation Orthopedic Surgery Subjective Chief complaint: Chief Complaint Patient presents with Left Arm - Follow-up 09/22/24 Rock Herrera is a 54 y.o. year old female w/ hx of remote carpal tunnel release and cubital tunnel release >25 years ago presenting for evaluation of BUE pain (L>R) s/p repeat carpal tunnel release and submuscular ulnar nerve transposition (08/03/24). She was seen postop in 08/17/24 and had no unexpected complaints at that time. Today, she states she is having worsening pain in her right hand affecting all 5 digits, worse in digits 4-5. She is taking Percocet 5-325mg Q6H, which she states does help control her pain. She would like a refill today. She is currently 6 weeks postop. She has not yet partipated in any post-operative therapy. 08/17 Rock Herrera comes in for a post-operative visit after having a left Revision carpal tunnel release and submuscular ulnar nerve transposition. done on 08/03/2024. Today she is doing well and has no unexpected complaints. 06/16/24 Rock Herrera is a 53 y.o. female new [...] hand. 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 She has tried a heating pad, tylenol, and Celebrex which have not helped alleviate symptoms. Patient also has symptoms of numbness/tingling from the elbow and carpal tunnel into the hand at rest. Patient reports the same symptoms on the right side but are milder. Previous Treatments: 08/03/2024 Revision To Submuscular Transposition, Nerve, Ulnar - Left and Revision Release, Carpal Tunnel - Left History Past Surgical History: Procedure Laterality Date APPENDECTOMY CARPAL TUNNEL RELEASE CATARACT EXTRACTION COLONOSCOPY EYE SURGERY HYSTERECTOMY OTHER SURGICAL HISTORY ARTHROSCOPY WITH LATERAL MENISCECTOMY KNEE Right 06/06/2022 OTHER SURGICAL HISTORY BREAST FIBROADENOMA SURGERY PLANTAR FASCIA RELEASE SINUS SURGERY TOE SURGERY Past Medical History: Diagnosis Date Allergic rhinitis Anxiety Arthritis Coronary artery disease Depression Diabetes mellitus (CMS/HCC) Fibromyalgia, primary Heart valve disease Hyperlipidemia Hypertension Myocardial infarction (CMS/HCC) Sleep apnea Objective General: Body mass index is 27.81 kg/m???. No acute distress, comfortable Respiratory: Unlabored breathing with normal rate, no cough Cardiovascular: Warm well perfused extremities Psych: Appropriate mood behavior Extremity: Bilateral upper extremities Inspection- well healed surgical scars Palpation- tender to palpation over carpal tunnel and ulnar groove bilaterally (L>R) ROM- intact grossly Sensation- intact Motors- grossly intact, wrist flexion somewhat limited secondary to pain Vascular- no cyanosis, good capillary refill Imaging: No new imaging reviewed today Assessment/Plan Rock Herrera is a 54 y.o. year old female with Ulnar neuropathy at elbow, left and Carpal tunnel syndrome of left wrist. She states that the pain in her L hand is worsening, affecting all 5 digits, primarily digits 4-5. She has similar pain in her RUE to a lesser degree. She is still taking Percocet and gets some relief from this. - Refill Percocet today, discussed w/ patient that once she is 3 months post-op we will no longer fill this medication; pt expressed understanding - Placed referral order for occupational therapy - Follow up in 6 weeks Cam Belcher DO PGY-3 Physical Medicine and Rehabilitation [facility] 09-17-2024 History of Presen t illness Narrative Images from the original note were not included. Physical Therapy Treatment Visit Patient Name: Rock Herrera Today's Date: 09/17/2024 Encounter Diagnoses Name Primary? Left knee pain, unspecified chronicity Yes Arthritis of left knee Chronic pain of left knee Visit number: 4 Timed Code Treatment Minutes: 30 minutes Total Treatment Time: 30 minutes Time In: 1217 Time Out: 1300 History: Pt presents with complaints of chronic left knee pain. Was seen by ortho and plan is TKA in a couple of months. Dr would like some strengthening of knee prior to replacement. Pt states she has had numerous injections in left knee and they are no longer helping. Pt states she has 4WW that she normally uses. Precautions: Fall Subjective: Pt reports no falls since last session. States she was seen lately by a visiting nurse who said she has decrease circulation in her left LE compared to her right. Pain today rates 7/10 in left knee. Will return to Dr for left knee on 09/28/24. Pain: 7/10 Objective: PT Evaluation (08/28/2024) Left KNEE AROM: 5 degrees hyperextension, 142 degrees flexion in supine PROM: not tested Joint play: Hypermobility noted with AP glides MMT: 4-/5 strength left quad Muscle length: Palpation: Moderate to severe tenderness medial joint line, moderate tenderness lateral joint line. Special Test: laxity noted with anterior drawer testing Functional: TUG without device: 13.09 seconds and 11.23 seconds. Five Time Sit to Stand: 15.47 seconds with arms across chest Treatment: Education: HEP education with demonstration, Educated on Eval Findings and POC Manual Therapy: Passive ROM, Joint mobilization, Soft Tissue Mobilization, Myofascial Release, Muscle Energy Technique, Neural Mobilization, Myofascial Cupping, Dry Needling, IASTM, and Scar mobilization as needed. Therapeutic Exercise: (30 minutes) Strength, Endurance, Flexibility, ROM, HEP, Neural Mobilization, Power, and Core Stability as needed. Nustep x10 minutes unsupervised. Therapeutic Activity: () Exercises to improve dynamic activities, functional tasks, functional mobility to return to prior activity level as needed. Neuromuscular re-education: Balance Training, Muscle Facilitation, Dynamic Stability, Core Stabilization, and Blood Flow Restriction Training (BFRT) as needed. Modalities: Heat, Ice, Electrical Stimulation, Ultrasound, Cervical Mechanical Traction, Lumbar Mechanical Traction, Iontophoresis, and Fluidotherapy as needed. Declined CP this date. Assessment: Pt has completed 4 PT sessions for left knee pain and weakness. Pt able to ascend 6 inch step with left LE and min compensation. Progressed standing exercises this date to increase functional strength bilateral LE's. Outcome Measure: Lower Extremity Functional Scale (LEFS): 26/80 Rehab Diagnosis: left knee pain, left LE weakness, falls, difficulty walking Short Term Goal: To be met in 2 weeks Goal 1: Pt to be instructed in home exercise program. Penitentiary Goals: To be met in 10 weeks Goal 1: Pt to report independence and compliance with home program. Goal 2: Pt to achieve 4+/5 strength left knee flexion and extension to assist with functional mobility and ADL's. Goal 3: Pt to score no less than 40/80 on LEFS indicating improved QOL. Goal 4: Pt to complete Five Time Sit to fishing manager less than 12.0 seconds with arms across chest indicating improved functional strength of bilateral LE's. Goal 5: Pt to complete TUG without device in less than 10.0 seconds indicating improved gait and mobility. Pt will benefit from skilled PT for 2x/week from 08/28/2024 to 11/06/2024 to address the above impairments. I hereby deem this POC medically necessary. Please sign below. Date: documented in this encounter [facility] 09-15-2024 History of Presen t illness Narrative Subjective Patient ID: Rock Herrera is a 54 y.o. female. Rock presents today for a controlled substance visit. She is using alprazolam 1mg 1-3 times a day with benefit. She uses it for anxiety. It controls her anxiety so she can do ADLs and IADLs. She is not having any side effects. She would also like labs checked like A1c and lipids. She is going to have a hip replacement in [place] and will need a pre-op clearance The following portions of the patient's history were reviewed and updated as appropriate: allergies, current medications, past family history, past medical history, past social history, past surgical history, problem list, and medication reconciliation was completed including current medication and post discharge medication. Review of Systems Constitutional: Negative. Respiratory: Negative. Cardiovascular: Negative. Gastrointestinal: Negative. Endocrine: Negative. Genitourinary: Negative. Musculoskeletal: Positive for arthralgias, back pain, gait problem and myalgias. Psychiatric/Behavioral: Positive for dysphoric mood. Negative for behavioral problems. The patient is nervous/anxious. Objective Physical Exam Vitals reviewed. Constitutional: General: She is not in acute distress. HENT: Head: Normocephalic. Cardiovascular: Rate and Rhythm: Normal rate and regular rhythm. Pulses: Normal pulses. Heart sounds: Normal heart sounds. No murmur heard. Pulmonary: Effort: Pulmonary effort is normal. No respiratory distress. Breath sounds: Normal breath sounds. No wheezing, rhonchi or rales. Musculoskeletal: Cervical back: Neck supple. Lymphadenopathy: Cervical: No cervical adenopathy. Neurological: General: No focal deficit present. Mental Status: She is alert and oriented to person, place, and time. Psychiatric: Attention and Perception: Attention normal. Mood and Affect: Mood and affect normal. Speech: Speech normal. Behavior: Behavior normal. Behavior is cooperative. Thought Content: Thought content normal. Cognition and Memory: Cognition normal. Judgment: Judgment normal. Assessment/Plan Rock was seen today for controlled. Diagnoses and all orders for this visit: Anxiety She is using a high risk medication with benefit. She is not having any side effects. The OARRS/MAPPS database was reviewed today and found to be appropriate. No indication of medication diversion, or non compliance. Diabetes mellitus without complication ([facility]) - Hemoglobin A1c; Future Check A1c Essential hypertension - Comprehensive metabolic panel; Future BP at goal-even low. Check CMP Mixed hyperlipidemia - Lipid panel; Future Check lipids Medication management - Drug Screen, Urine; Future Check urine for presence of medication and DOA. Chronic obstructive pulmonary disease, unspecified COPD type ([facility]) Stable. Continue current regimen Current smoker Encouraged to stop smoking. <3 minutes spent discussing documented in this encounter [facility] 09-15-2024 Telephone encounter Note She called noting diarrhea and not feeling well; cx PT today. I reminded and she confirmed 09/17/24. [facility] 09-15-2024 Miscellaneous Notes She called noting diarrhea and not feeling well; cx PT today. I reminded and she confirmed 09/17/24. documented in this encounter [facility] 09-10-2024 Note [id number] Violet Herrera 1970 F Date Provider Department Center 09/10/2024 LAN HAGEN MP [facility] No family history on file [facility] 09-04-2024 Telephone encounter Note Called back and asked if she would be able to do the exercises involved w/ her treatment; and she said whenever she walks she feels a significant burn. Per Caty, said if unable to cx today and cont on next week. She said she'll be here next week. [facility] 09-04-2024 Miscellaneous Notes Called back and asked if she would be able to do the exercises involved w/ her treatment; and she said whenever she walks she feels a significant burn. Per Caty, said if unable to cx today and cont on next week. She said she'll be here next week. She called noting she had fallen yesterday and her knee is burning today. She asked if she should come to her 2:30 PT today (rs today from cx of 09/03) or wait till next week? documented in this encounter [facility] 09-04-2024 Telephone encounter Note She called noting she had fallen yesterday and her knee is burning today. She asked if she should come to her 2:30 PT today (rs today from cx of 09/03) or wait till next week? [facility] 09-03-2024 Telephone encounter Note She called noting not feeling well and due to the weather would like to cx PT today. I offered a move down on time or move to tomorrow; she rs PT 09/04. [facility] 09-03-2024 Miscellaneous Notes She called noting not feeling well and due to the weather would like to cx PT today. I offered a move down on time or move to tomorrow; she rs PT 09/04. documented in this encounter [facility] 08-28-2024 History of Presen t illness Narrative Images from the original note were not included. Physical Therapy Evaluation Visit Patient Name: Rock Herrera Today's Date: 08/28/2024 Encounter Diagnoses Name Primary? Left knee pain, unspecified chronicity Yes Visit number: 1 Timed Code Treatment Minutes: 45 minutes Total Treatment Time: 45 minutes Time In: 1230 Time Out: 1315 History: Pt presents with complaints of chronic left knee pain. Was seen by ortho and plan is TKA in a couple of months. would like some strengthening of knee prior to replacement. Pt states she has had numerous injections in left knee and they are no longer helping. Pt states she has 4WW that she normally uses. Precautions: Fall Subjective: Pain in left knee Pain: 02/25 Objective: PT Evaluation (08/28/2024) Left KNEE AROM: 5 degrees hyperextension, 142 degrees flexion in supine PROM: not tested Joint play: Hypermobility noted with AP glides MMT: 4-/5 strength left quad Muscle length: Palpation: Moderate to severe tenderness medial joint line, moderate tenderness lateral joint line. Special Test: laxity noted with anterior drawer testing Functional: TUG without device: 13.09 seconds and 11.23 seconds. Five Time Sit to Stand: 15.47 seconds with arms across chest Treatment: Education: HEP education with demonstration, Educated on Eval Findings and POC Manual Therapy: Passive ROM, Joint mobilization, Soft Tissue Mobilization, Myofascial Release, Muscle Energy Technique, Neural Mobilization, Myofascial Cupping, Dry Needling, IASTM, and Scar mobilization as needed. Therapeutic Exercise: (24 minutes) Strength, Endurance, Flexibility, ROM, HEP, Neural Mobilization, Power, and Core Stability as needed. Pt performed and instructed in home program this date; written instructions and pictures issued with good pt understanding. Therapeutic Activity: Exercises to improve dynamic activities, functional tasks, functional mobility to return to prior activity level as needed. Neuromuscular re-education: Balance Training, Muscle Facilitation, Dynamic Stability, Core Stabilization, and Blood Flow Restriction Training (BFRT) as needed. Modalities: Heat, Ice, Electrical Stimulation, Ultrasound, Cervical Mechanical Traction, Lumbar Mechanical Traction, Iontophoresis, and Fluidotherapy as needed. Assessment: Pt is 54 y/o female with complaints of chronic left knee pain. ROM of left knee is full; however, decrease strength of left LE is noted. Pt issued HEP this date and will benefit from further PT to improve functional strength and decrease risk for further falls. Outcome Measure: Lower Extremity Functional Scale (LEFS): 26/80 Rehab Diagnosis: left knee pain, left LE weakness, falls, difficulty walking Short Term Goal: To be met in 2 weeks Goal 1: Pt to be instructed in home exercise program. Penitentiary Goals: To be met in 10 weeks Goal 1: Pt to report independence and compliance with home program. Goal 2: Pt to achieve 4+/5 strength left knee flexion and extension to assist with functional mobility and ADL's. Goal 3: Pt to score no less than 40/80 on LEFS indicating improved QOL. Goal 4: Pt to complete Five Time Sit to fishing manager less than 12.0 seconds with arms across chest indicating improved functional strength of bilateral LE's. Goal 5: Pt to complete TUG without device in less than 10.0 seconds indicating improved gait and mobility. Pt will benefit from skilled PT for 2x/week from 08/28/2024 to 11/06/2024 to address the above impairments. I hereby deem this POC medically necessary. Please sign below. Date: documented in this encounter [facility] 08-26-2024 Evaluation + Plan note Extrac emeterio from: Title:Pain Managment Follow up Author:Cady Baires Date:08/26/24 Impression and Plan Patient is a 54-year-old female with a past medical history significant for chronic low body pain and fibromyalgia. We discussed other options. At this time, I am not sure what other medication options to offer to her as she is allergic to almost everything that we utilize for fibromyalgia and global body pain. We discussed referral for ketamine. She is going to look into this. She will this note. I would like to discuss her case with Dr. Eid. She will follow-up on an as-needed basis and we will let her know if there are any other medication options after I am able to discuss her case with him. TU score 62%. Future Appointments Appointment Date:01/05/2025 01:00:00 PM Scheduled Provider:POLLY MARIANO PA-C Location:[facility] Appointment Type:URO Office Visit [facility] 01-08-2025 NoteConsultation Note Patient: ROCK HERRERA Age: 54 years Sex: Female : 1970 Associated Diagnoses: None Author: Cady Alva PA-C Subjective Chief complaint 08/26/2024 12:24 EST Generalized pain . Patient is a 54-year-old female. She presents today for a 6-month follow-up after trialing low-dosenaltrexone. She called us about a month after starting it because she states that it was causing her to vomit. She states that she did not tolerate it. She wonders what else she can do for her globalbody pain. She rates it a 6???05/28. She states that she just wants it improved. She has trialed and failed a multitude of medications for this pain including but not limited to amitriptyline, Cymbalta, Lyrica, Neurontin, Paxil, syllable, Topamax, Trileptal, Wellbutrin and most recently low-dose ultrasound. She has also trialed and failed other medications for pain including Toradol. She stevens cassandra ost everything on her visual analog scale. Health Status Allergies: Allergic Reactions (Selected) Moderate [...] stool, # 120 tab(s), Refills(s) 6, Pharmacy: [facility]5, 162, cm, 03/30/20 10:05:00 EDT, Height/Length Dosing, 74.2, kg, 03/30/20 10:05:00 EDT, Weight Dosing carvedilol 25 mg Tab: 25 mg = 1 tab(s), Oral, BID, # 60 tab(s), Refills(s) 5, Pharmacy: [facility] 1155, 163, cm, 03/05/24 15:26:00 EDT, Height/Length Dosing, 72.8, kg, 03/05/24 15:26:00 EDT, Weight Dosing diltiazem CD 120 mg/24 hours Cap-ER: 120 mg = 1 cap(s), Oral, Daily, # 30 cap(s), Refills(s) 5, Pharmacy: [facility]5, 163, cm, 01/01/24 11:13:00 EDT, Height/Length Dosing, 75.6, kg, 12/31/23 13:01:00 EDT, Weight Dosing naltrexone 1.5 mg oral capsule: See Instructions, take one tablet daily, # 30 tab(s), Refills(s) 0,Pharmacy: [facility], 163, cm, 03/05/24 15:26:00 EDT, Height/Length Dosing, 72.8, kg, 03/05/24 15:26:00 EDT, Weight Dosing solifenacin 10 mg Tab: 10 mg = 1 tab(s), Oral, Daily, # 30 tab(s), Refills(s) 11, Pharmacy: [facility]5, 163, cm, 08/13/24 13:14:00 EST, Height/Length Dosing, 74, kg, 08/13/24 13:17:00 EST, Weight Dosing Documented Medications Documented Abilify: 15 mg, Oral, Daily Ajovy Autoinjector 225 mg/1.5 mL subcutaneous solution: 225 mg, SubCutaneous, qMonth, Refills(s) 0,Migraine headache Calcium 600+D: 600 / 400 mg, Oral, Daily, Refill(s) 0, Prophylaxis Lasix: 20 mg, Oral, Daily, Refills(s) 0, diuretic/water pill Lipitor 40 mg Tab: 80 mg = 2 tab(s), Oral, Bedtime, Refills(s) 0, High cholesterol Nurtec ODT: 75 mg, Oral, q24hr, PRN [...] 1 cap(s), Oral, Saturday, Refills(s) 0, Prophylaxis acetaminophen-oxycodone 325 mg-5 mg Tab: 1 tab(s), Oral, q4hr for pain, Refill(s) 0 alendronate: 70 mg, Oral, qWeek, Refills(s) 0 alprazolam 1 mg Tab: TAKE ONE TABLET BY MOUTH THREE TIMES A DAY NEEDED FOR ANXIETY meclizine: 25 mg, Oral, QID, PRN Dizziness m (more content not included)...[facility] CenterComment [facility] above: Result Comment: Electronically Signed By: Cady Alva PA-C\.br\Date and Time Signed: 08/26/24 12:56 [id number] NoteOrthopedic Surgery 08/03/2024 Revision To Submuscular Transposition, Nerve, Ulnar - Left and Revision Release, Carpal Tunnel - Left Rock Herrera comes in for a post-operative visit after having a left Revision carpal tunnel release and submuscular ulnar nerve transposition. done on 08/03/2024. Today she is doing well and has no unexpected complaints. Physical Exam: The incision site is healing well. There is no erythema, drainage or signs of infection. Tenderness is moderate and localized to the surgical site. Sensation is present to light touch. Range of motion is appropriate for this time. Assessment: Rock Herrera is a 54 y.o. year old female with Recurrent carpal and cubital tunnel syndromes involving the left upper extremity Plan: The sutures were removed in the clinic today. I instructed her on how to do scar massage and then apply lotion to the incisional site. A removable splint which she has, can be removed for bathing and gentle range of motion. Instructions were given on activity restrictions until the next appointment. We will see her back in the clinic 4 wks.[facility] 08-17-2024 NoteOrthopedic Surgery Subjective Chief complaint: Chief Complaint Patient presents with Left Knee - New Patient, Pain 08/17/24 Rock Herrera is a 54 y.o. year old female presenting for evaluation of left knee pain, worse than the right side. Patient states that she has been having longstanding left knee pain for almost a year and has been using the walker for almost 8 to 9 months. Patient has been trying oral pain medications as well as cortisone injections and viscosupplementation's in her knee joint which have not been helping her for the right side but not so much on the left side. Patient is also status post right knee arthroscopic meniscectomy done on Maynd believes that recent MRI scan showed tear of her left meniscus. Patient has also been having instability of her left knee joint. Localize the pain in the left anterior aspect of the knee joint with occasional radiations to the proximal and distal aspect. She denies any new trauma. History Past Surgical History: Procedure Laterality Date APPENDECTOMY CARPAL TUNNEL RELEASE CATARACT EXTRACTION COLONOSCOPY EYE SURGERY HYSTERECTOMY OTHER SURGICAL HISTORY ARTHROSCOPY WITH LATERAL MENISCECTOMY KNEE Right 06/06/2022 OTHER SURGICAL HISTORY BREAST FIBROADENOMA SURGERY PLANTAR FASCIA RELEASE SINUS SURGERY TOE SURGERY Past Medical History: Diagnosis Date Allergic rhinitis Anxiety Arthritis Coronary artery disease Depression Diabetes mellitus (CMS/HCC) Fibromyalgia, primary Heart valve disease Hyperlipidemia Hypertension Myocardial infarction (CMS/HCC) Sleep apnea Objective General: Body mass index is 27.81 kg/m???. No acute distress, comfortable Respiratory: Unlabored breathing with normal rate, no cough Cardiovascular: Warm well perfused extremities Psych: Appropriate mood behavior Bilateral knee joints were examined and compared: Patient has wasting of the quadriceps noted left side as compared to right side with weakness in the quads noted extension is about 3+ to 4 out of 5 as compared to 5 out of 5 on the right side, patient also has weakness in the hamstrings of the left knee joint which is 3+ to 4 out of 5 to 4 out of 5 on the right side. Patient has active extension of about -5 degrees on the left side with flexion to about 90 degrees. Some mild mid flexion instability noted. Patella tracks laterally. Patient walks with moderate antalgia on the left side as compared to right side. Mild varus deformity of left knee joint noted. Positive patellofemoral crepitus noted, positive palpable osteophytes noted. Medial as well as lateral joint line tenderness noted. DTR 1+. No calf swelling or tenderness noted, no signs of deep vein thrombosis seen. Anterior posterior drawer shows some mild laxity but no major instability. Positive Dwight's noted. Imaging personally reviewed: X-rays of the left knee joint were requested patient has brought in her MRI scan from her recent outside institution which shows the patient has severe tracking lateral degenerative's of the left knee joint along with subchondral cyst formation with subchondral sclerosis noted. Positive bone marrow edema noted as well as complex degenerative tear of the menisci noted. Noted effusion of the knee joint as well. Patient was explained that she has severe decremental degenerative's of the left knee joint and also since she has not responded to nonsurgical treatment we can plan for left knee arthroplasty. She will need formal x-rays of her left knee joint standing views 3 views when she comes back for her preoperative visit. Assessment/Plan Rock Herrera is a 54 y.o. year old female with Weakness of left quadriceps muscle Left knee pain, unspecified chronicity Primary osteoarthritis of both knees Recurrent falls while walking Patient was explained that she does have tricompartmental degenerative arthritis of the left knee joint and will benefit with left knee arthroplasty eventually since she has not been responding to nonsurgical treatment. Risk and benefits of left primary cemented robotic assisted total knee arthroplasty were discussed at length with the patient including complication which are but not restricted to bleeding, infection, neurovascular injury, residual pain stiffness, significant within the muscles, pulm embolism, myocardial infarction, stroke, mortality less than recurrent dislocations, periprosthetic fractures, iatrogenic fractures loosening of the hardware, polyethylene wear, need for revision knee arthroplasty, recurrent infections causing osteomyelitis and/or limb threatening or life-threatening complications, need for excision arthroplasty and/or fusion of the knee joint, need for above-knee amputation were all discussed at length with the patient despite which she wishes to proceed with surgery. She will see me in about 2 months time after her strengthening of the (more content not included)...[facility]12-23-2024 History of Present illness Narrative* Jena Vaz NP - 08/10/2024 2:26 PM EST Referral for neuropsych/creyos memory testing placed and sent to patient for completion. documented in this encounterSoutheast Missouri [id number] History of Present illness Narrative* Carlos Sanchez MD - 08/10/2024 1:00 PM EST Images from the original note were not included. CHIEF COMPLAINT REASON FOR VISIT: Migraines HPI: Rock Herrera is a 54 y.o. female who presents for a follow up. She states her headaches are better. No bad ones this month. She states she is still getting a couple headaches 1-2 times a week. She uses ajovy and nurtec. Both seem to work well for her. She states she have left arm surgery on week by Dr. Rubi. She states she has not gotten her pain medications. She states she is hurting but still waiting. She states she has had more difficulty with short- term memory. She does take thiamine. She states she does not sleep well. She states she does get some nightmares. Denies any other concerns. CURRENT MEDICATIONS: ALLERGIES/DISCONTINUE MEDICATIONS Current Outpatient Medications Medication Instructions Ajovy 225 mg, Subcutaneous, Every 30 days albuterol 2.5 mg, Every 6 hours Alcohol Swabs (Global Alcohol Prep Ease) 70 % pads APPLY 1 PAD TOPICALLY EVERY 14 (FOURTEEN) DAYS. alendronate (Fosamax) 70 MG tablet TAKE ONE TABLET BY MOUTH ONCE WEEKLY 30 MINUTES BEFORE THE FIRSTFOOD, BEVERAGE, OR MEDICINE OF THE DAY WITH PLAIN WATER ALPRAZolam (XANAX) 1 mg, Nightly PRN ARIPiprazole (ABILIFY) 15 mg, Daily atorvastatin (LIPITOR) 80 mg, Daily calcium carbonate 1,500 mg, Oral, 2 times daily carvedilol (COREG) 25 mg, 2 times daily cetirizine (ZYRTEC) 10 mg, Daily clomiPRAMINE (ANAFRANIL) 50 mg, Every 24 hours Continuous Glucose Sensor (FreeStyle Lilliam 2 Sensor) misc USE DIRECTED AND CHANGE EVERY 14 DAYS Continuous Glucose Transmitter (Dexcom G6 transmitter) misc 1 UNIT BY MISCELLANEOUS ROUTE EVERY 3 (THREE) MONTHS. dilTIAZem CD (CARDIZEM CD) 120 mg, Daily EPINEPHrine (Epipen) 0.3 MG/0.3ML injection syringe INJECT 0.3MG INTO THE APPROPRIATE MUSCLE NEEDED FOR ALLERGIC REACTION UP TO 1 DOSE ergocalciferol (Vitamin D2) 1.25 MG (37636 UT) capsule 1 capsule, Weekly furosemide (LASIX) 20 mg, Daily glycopyrrolate (Robinul) 2 MG tablet TAKE 1 TABLET (2 MG) BY MOUTH AT BEDTIME lidocaine (Lidoderm) 5 % patch PLACE 1 PATCH ON THE SKIN DAILY. REMOVE & DISCARD PATCH WITHIN 12 HOURS OR DIRECTED BY Lidocaine, Anorectal, 5 % cream loperamide (Imodium) 2 MG capsule TAKE 2 CAPSULES BY MOUTH AFTER 1ST LOOSE STOOL AND 1 CAPSULE AFTER EACH NEXT BOWEL MOVEMENT; DO NOT EXCEED 16MG (8 CAPSULES) IN 24 HOURS meclizine (ANTIVERT) 25 mg, 3 times daily PRN metFORMIN (GLUCOPHAGE) 500 mg, Daily with breakfast montelukast (SINGULAIR) 10 mg, Every evening nortriptyline (PAMELOR) 25 mg, 4 times daily Nurtec 75 mg, Oral, Daily PRN nystatin (Mycostatin) 207547 UNIT/ML suspension TAKE 5ML BY MOUTH FOUR TIMES A DAY (MORNING, NOON, EVENING, BEDTIME) FOR 5 DAYS. nystatin (Mycostatin) cream APPLY TO AFFECTED AREA VIA TOPICAL ROUTE TWICE A DAY omeprazole (PriLOSEC) [address] capsule Take 1 capsule every day by oral route. ondansetron (Zofran) 4 MG tablet TAKE 1 TABLET BY MOUTH EVERY 12 HOURS FOR 10 DAYS NEEDED FOR NAUSEA AND VOMITING oxyCODONE-acetaminophen (Percocet) 5-325 MG tablet TAKE 1 TABLET BY MOUTH EVERY 6 (SIX) HOURS IF NEEDED FOR SEVERE PAIN (8-10 PAIN SCORE) FOR UP TO 5 DAYS. solifenacin (VESICARE) 10 mg, Daily Thiamine Mononitrate 100 MG tablet TAKE 1 TABLET BY MOUTH IN THE MORNING AND IN THE EVENING Ventolin HFA 108 (90 Base) MCG/ACT inhaler 1 puff, 3 times daily zonisamide (ZONEGRAN) 25 mg, Oral, Daily Allergies Allergen Reactions Codeine Hives and Rash [...] palpitations Ziprasidone Hcl Hives and Palpitations palpitations Aloe Facial numbness/tongue numbness Amitriptyline Other Reaction(s): Abnormal Behavior, Mental Status Change, other, Vomiting hallucinate Hillrose Saline Nasal Gel [Aloe-Sodium Chloride] Facial numbness/tongue [...] Change, other, Unknown hallucinate Shellfish Allergy Rash Other Reaction(s): rash Wound Dressing Adhesive Rash Other Reaction(s): other Ziprasidone Palpitations Other Reaction(s): other, Unknown Medications Discontinued During This Encounter Medication Reason biotin 10 MG capsule Therapy completed dicyclomine (Bentyl) 20 MG tablet Therapy completed Lidocaine 5 % cream Therapy completed Nurtec 75 MG tablet dispersible Reorder PAST MEDICAL HISTORY: SURGICAL/SOCIAL/FAMILY HISTORY DEPRESSION SCREEN: Past Medical History: Diagnosis Date Asthma ([facility]/HCC) Bipolar disorder ([facility]/HCC) Bunion COPD (chronic obstructive pulmonary disease) ([facility]/HCC) Depression ([facility]/HCC) Diabetes ([facility]/HCC) Fallen arches Fibromyalgia GERD (gastroesophageal reflux disease) Hammer toe Hypertension ([facility]/HCC) Kidney stones NV (myocardial infarction) ([facility]/HCC) Migraine ([facility]/HCC) Mitral valve prolapse Downey's neuroma Onychomycosis Osteoarthritis Oxygen dependent Plantar fasciitis Sleep apnea SVT (supraventricular tachycardia) ([facility]) Tinea pedis Past Surgical History: Procedure Laterality Date APPENDECTOMY BREAST LUMPECTOMY Left 10/2015 benign BREAST LUMPECTOMY Left 02/2016 benign BREAST SURGERY 12/2008 bilateral subareolar ductal exition CARPAL TUNNEL RELEASE x2 COLONOSCOPY 2013 egd/colonoscopy FOOT SURGERY FOOT SURGERY Right GANGLION CYST EXCISION Right 02/2016 wrist HYSTERECTOMY 2005 LITHOTRIPSY OTHER SURGICAL HISTORY left tenex OTHER SURGICAL HISTORY rt pb surgery OTHER SURGICAL HISTORY rt 2,3,4 MA REVISE ULNAR NERVE AT WRIST ulnar nerve release x 2 SINUS SURGERY x2 TOE SURGERY 2016 TOE SURGERY Right 3rd toe TOE SURGERY Bilateral 04/09/2024 RT 2nd and 4th, LT 2nd, 3rd and 4th, by dr. arango TUBAL LIGATION Social History Tobacco Use Smoking status: Every Day Current packs/day: 0.50 Average packs/day: 0.5 packs/day for 39.0 years (19.5 ttl pk-yrs) Types: Cigarettes Start date: 08/19/1985 Passive exposure: Current Smokeless tobacco: Never Vaping Use Vaping status: Unknown Substance Use Topics Alcohol use: Not Currently Comment: caffeine intake: 1-2 cups per day Drug use: Not Currently Family History Problem Relation Name Age of Onset Diabetes Mother Alcohol abuse Father Depression: Not at risk (06/16/2024) Received from [facility] PHQ-2 Patient Health Questionnaire-2 Score: 0 REVIEW OF SYMPTOMS: Review of Systems Const: Denies appetite change, fever, chills. Allergy: Denies medication reaction. Ocular: Denies visual acuity change. ENT: Denies hearing change. Endoc: Denies weight loss. Resp: Denies dyspnoea, wheezing. Cardiac: Denies angina, palpitations. GI: Denies nausea, vomiting. Haem: Denies bleeding. : Denies incontinence. MSK: Denies arthralgias, joint oedema. Derm: Denies rash, hair loss. Neuro: Denies ataxia, tremor. Also see HPI for elements of ROS documented therein and for details of positive findings, which shall supersede the foregoing. OBJECTIVE: 08/10/2024 1:09 PM 07/29/2024 1:54 PM 06/18/2024 3:01 PM Vitals BMI 28.15 kg/m2 27.64 kg/m2 28.15 kg/m2 BSA (m2) 1.83 m2 1.82 m2 1.83 m2 Systolic 120 140 Diastolic 74 79 Heart Rate 84 Height (in) 5' 4 5' 4 Weight (lb) 164 161 164 Visit Report Report Report Report EXAM: Neurological Exam GENERAL EXAMINATION Appearance: in no acute distress, well developed, well nourished. Head: normocephalic, atraumatic. Eyes: pupils equal, round, reactive to light and accommodation. Ears: normal. Mouth: mucosa moist. Throat: clear. Neck: neck supple, full range of motion, no cervical lymphadenopathy. Skin: no suspicious lesions, warm and dry. Heart: no murmurs, regular rate and rhythm, S1, S2 normal. Lungs: clear to auscultation bilaterally. Abdomen: normal, bowel sounds present, soft, nontender, nondistended. Extremities: no clubbing, cyanosis, or edema. NEUROLOGICAL EXAMINATION Mental Status: The patient is alert and oriented to person, place, and time. Except as noted, thought content, form, and comprehension was normal. Phonation, articulation, resonance, and prosody are normal. Cranial Nerves: Pupils were 4.0 millimeters, equal, round, and reactive to light and accommodation,both directly and consensually. Visual garcia were full by confrontation. There was no ptosis; extra-ocular movements were full; and there was no nystagmus. Funduscopic exam is normal. Masseters are of normal strength. Facial movement is normal. Hearing is grossly intact. There is no dysarthria. The gag reflex is equal bilaterally. Sternocleidomastoids and trapezii are of normal strength. The tongue protrudes in the midline. Motor: Muscle testing was performed in all four extremities, including at least seismic engineer, finger abductors, biceps, triceps, deltoid, toe flexors and extensors, tibialis anterior, triceps surae, quadriceps femoris, biceps femoris, and iliopsoases. Tone is normal. Muscle bulk is normal. Fasciculations are not seen . Pronator drift was not evident. Sensory: Sensation to touch, temperature, and vibration was normal in the arms, legs and face. Romberg is negative. Reflexes: Biceps, triceps, brachioradialis are 2/4 bilaterally. Patellar and Achilles reflexes are 2/4 bilaterally. Plantar responses were flexor bilaterally. Coordination: Dysmetria and dysdiadochokinesia are absent. Tremor is absent; dystonia is absent; chorea is absent. Gait And Station: Station and gait are normal. Apraxia and spasticity are not evident. Arm swing isnormal. Toe, heel, and tandem walking are performed without difficulty. Musculoskeletal: Trigger-point tenderness was absent. There is no spasm of the trapezii or paraspinals. PROCEDURE: NONE ASSESSMENT AND PLAN: Rock Herrera is a 54 y.o. male who presents with headaches possibly due to migraine headaches, muscle tension headaches, complicated migraine, migraine variant, or chronic daily headache. Another consideration would be medication overuse headaches or rebound headaches due to increased use of tylenol or chronic headaches secondary to an underlying sleep disorder. Diagnoses and all orders for this visit: Intractable chronic migraine without aura and without status migrainosus (CMS/HCC) Continue Ajovy for prevention migraine treatment. Continue nurtec 75 mg PRN for acute treatment. I counseled the patient on the possible side effects and interactions of medications. Attention deficit hyperactivity disorder (ADHD), predominantly inattentive type (CMS/HCC) Creyos Testing-I will order neuropsychiatric testing as this is essential for a patient with cognitive impairment to objectively assess the severity and nature of their cognitive deficits. This testing helps differentiate between various causes of cognitive decline, such as neurodegenerative disorders, mood disturbances, or reversible medical conditions. Early and accurate diagnosis is critical for developing an appropriate treatment plan, slowing progression, and improving the patient s quality of life. Additionally, the testing provides baseline data for monitoring changes over time. Follow up 3 months. documented in this [facility]12-17-2024 NoteAddendum created 08/04/24 1211 by Negrito Garcia MD Clinical Note Signed, Intraprocedure Blocks editedOhioHealth Doctors Hospital12-17-2024 Telephone encounter Note* Telephone Encounter - Jen Gomez - 08/04/2024 9:21 AM EST Patient called in requesting that lidocaine cream be called into her pharmacy for her. [facility] [id number] Miscellaneous Notes* Telephone Encounter - Jen Gomez - 08/04/2024 9:21 AM EST Patient called in requesting that lidocaine cream be called into her pharmacy for her. documented in this [facility]12-16-2024 NotePatient: Rock Herrera Procedure Summary Date: 08/03/24 Room / Location: [address] [facility] [place] Anesthesia Start: 1156 Anesthesia Stop: 1314 Procedures: REVISION TO SUBMUSCULAR TRANSPOSITION, NERVE, ULNAR (Left: Forearm) REVISION RELEASE, CARPAL TUNNEL (Left: Wrist) Diagnosis: Left arm pain (Left arm pain [M79.602]) Surgeons: Lan Rubi MD Responsible Provider: Negrito Garcia MD Anesthesia Type: regional ASA Status: 3 Anesthesia Type: regional Vitals Value Taken Time BP 138/64 08/03/24 1330 Temp 36 ???C (96.8 ???F) 08/03/24 1315 Pulse 65 08/03/24 1330 Resp 16 08/03/24 1330 SpO2 100 % 08/03/24 1330 Anesthesia Post Evaluation Patient location during evaluation: PACU Patient participation: complete - patient participated Level of consciousness: awake Pain score: 1 Pain management: adequate Airway patency: patent Cardiovascular status: acceptable Respiratory status: acceptable Patient is hemodynamically stable and is able to be discharged from PACU per anesthesia protocol. No notable events documented.[facility]12-16-20[facility] Note Patient: Rock Herrera Procedure Summary Date: 08/03/24 Room / Location: [facility] OR [address] [place] [address] [facility] Anesthesia Start: 1156 Anesthesia Stop: 1314 Procedures: REVISION TO SUBMUSCULAR TRANSPOSITION, NERVE, ULNAR (Left: Forearm) REVISION RELEASE, CARPAL TUNNEL (Left: Wrist) Diagnosis: Left arm pain (Left arm pain [M79.602]) Surgeons: Lan Rubi MD Responsible Provider: Negrito Garcia MD Anesthesia Type: regional ASA Status: 3 Anesthesia Post Transport Note Transport to: PACU O2 Route: face mask Oxygen Flow (L/min): 4 Patient Monitor: direct observation Transport: uneventful Patient condition is: stableUnProvidence Hospital12-16-2024 Note Peripheral Block Patient location during procedure: pre-op Start time: 08/03/2024 11:00 AM End time: 08/03/2024 11:15 AM Reason for block: primary anesthetic Staffing Performed: anesthesiologist Anesthesiologist: Negrito Garcia MD Preanesthetic Checklist Completed: patient identified, IV checked, site marked, risks and benefits discussed, monitors and equipment checked and pre-op evaluation Peripheral Block Patient position: supine Prep: ChloraPrep Patient monitoring: continuous pulse ox Block type: supraclavicular brachial plexus Laterality: left Injection technique: single-shot Guidance: ultrasound guided Local infiltration: bupivicaine Infiltration strength: 0.5 % Dose: 20 mL Needle Needle gauge: 22 G Needle length: 2 in Needle localization: ultrasound guidance Medications Administered midazolam (VERSED) IV - intravenous 2 mg - 08/03/2024 11:00:00 AM Assessment Injection assessment: negative aspiration for heme, no paresthesia on injection and incremental injection Heart rate change: no Slow fractionated injection: yesUnProvidence Hospital12-16-2024 NotePeripheral Block Patient location during procedure: pre-op Reason for block: at surgeon's request Staffing Performed: anesthesiologist Anesthesiologist: Negrito Garcia MD Preanesthetic Checklist Completed: patient identified, IV checked, site marked, risks and benefits discussed, monitors and equipment checked and pre-op evaluation Peripheral Block Patient position: supine Prep: ChloraPrep Patient monitoring: continuous pulse ox Block type: axillary Laterality: N/A Injection technique: single-shot Guidance: ultrasound guided Local infiltration: bupivicaine Infiltration strength: 0.5 % Dose: 20 mL Needle Needle gauge: 22 G Needle length: 2 in Needle localization: ultrasound guidance Assessment Injection assessment: negative aspiration for heme, no paresthesia on injection and incremental injection Heart rate change: no Slow fractionated injection: yesUnProvidence Hospital12-16-2024 NotePatient: Rock Herrera Procedure Information Date/Time: 08/03/24 1215 Procedures: REVISION TO SUBMUSCULAR TRANSPOSITION, NERVE, ULNAR (Left: Forearm) REVISION RELEASE, CARPAL TUNNEL (Left: Wrist) Location: [address] OR Surgeons: Lan Rubi MD Relevant Problems Anesthesia Non compliant with CPAP (+) CELINE (obstructive sleep apnea) Cardio Denies chest pain/SOB Endo BMI 28, DM /Renal Stage 3 kidney disease Neuro/Psych Fibromyalgia, chronic prescription benzodiazepene use, chronic pain management issues. Pulmonary Nicotene use, COPD Clinical information reviewed: Tobacco Allergies Meds Med Hx Surg Hx Fam Hx Soc Hx Physical Exam Airway Mallampati: II TM distance: >3 FB Neck ROM: full Cardiovascular - normal exam Dental (+) edentulous Pulmonary (+) rhonchi Abdominal Anesthesia Plan ASA 3 regional The patient is a current smoker. Patient was previously instructed to abstain from smoking on day of procedure. Patient did not smoke on day of procedure. intravenous induction Anesthetic plan and risks discussed with patient. Plan discussed with CAA. Additional Equipment RequestsOhioHealth Doctors Hospital12-11-2024 History of Present illness Narrative* Allison Bryant LPN - 07/29/2024 1:30 PM EST Reason for Appointment: Patient ID: Rock Herrera is a 54 y.o. female who presents for Gynecologic Exam Patient presents today for Annual Exam. MEDICATIONS Current Outpatient Medications Medication Instructions Ajovy 225 mg, Subcutaneous, Every 30 days albuterol 2.5 mg, Nebulization, Every 6 hours Alcohol Swabs (Global Alcohol Prep Ease) 70 % pads APPLY 1 PAD TOPICALLY EVERY 14 (FOURTEEN) DAYS. alendronate (Fosamax) 70 MG tablet TAKE ONE TABLET BY MOUTH ONCE WEEKLY 30 MINUTES BEFORE THE FIRSTFOOD, BEVERAGE, OR MEDICINE OF THE DAY WITH PLAIN WATER ALPRAZolam (XANAX) 1 mg, Oral, Nightly PRN ARIPiprazole (ABILIFY) 15 mg, Oral, Daily atorvastatin (LIPITOR) 80 mg, Oral, Daily biotin 10 mg, Oral, 2 times daily calcium carbonate 1,500 mg, Oral, 2 times daily carvedilol (COREG) 25 mg, Oral, 2 times daily cetirizine (ZYRTEC) 10 mg, Oral, Daily clomiPRAMINE (ANAFRANIL) 50 mg, Oral, Every 24 hours Continuous Glucose Transmitter (Dexcom G6 transmitter) misc 1 UNIT BY MISCELLANEOUS ROUTE EVERY 3 (THREE) MONTHS. dicyclomine (Bentyl) 20 MG tablet TAKE 1 TABLET BY MOUTH EVERY 6 TO 8 HOURS NEEDED FOR CRAMPS dilTIAZem CD (CARDIZEM CD) 120 mg, Oral, Daily ergocalciferol (Vitamin D2) 1.25 MG (59508 UT) capsule 1 capsule, Oral, Weekly furosemide (LASIX) 20 mg, Oral, Daily glycopyrrolate (Robinul) 2 MG tablet TAKE 1 TABLET (2 MG) BY MOUTH AT BEDTIME lidocaine (Lidoderm) 5 % patch PLACE 1 PATCH ON THE SKIN DAILY. REMOVE & DISCARD PATCH WITHIN 12 HOURS OR DIRECTED BY loperamide (Imodium) 2 MG capsule TAKE 2 CAPSULES BY MOUTH AFTER 1ST LOOSE STOOL AND 1 CAPSULE AFTER EACH NEXT BOWEL MOVEMENT; DO NOT EXCEED 16MG (8 CAPSULES) IN 24 HOURS meclizine (ANTIVERT) 25 mg, Oral, 3 times daily PRN metFORMIN (GLUCOPHAGE) 500 mg, Oral, Daily with breakfast montelukast (SINGULAIR) 10 mg, Oral, Every evening nortriptyline (PAMELOR) 25 mg, Oral, 4 times daily nystatin (Mycostatin) 249068 UNIT/ML suspension TAKE 5ML BY MOUTH FOUR TIMES A DAY (MORNING, NOON, EVENING, BEDTIME) FOR 5 DAYS. nystatin (Mycostatin) cream APPLY TO AFFECTED AREA VIA TOPICAL ROUTE TWICE A DAY omeprazole (PriLOSEC) [address] capsule Take 1 capsule every day by oral route. ondansetron (Zofran) 4 MG tablet TAKE 1 TABLET BY MOUTH EVERY 12 HOURS FOR 10 DAYS NEEDED FOR NAUSEA AND VOMITING solifenacin (VESICARE) 10 mg, Oral, Daily Ventolin HFA 108 (90 Base) MCG/ACT inhaler 1 puff, Inhalation, 3 times daily zonisamide (ZONEGRAN) 25 mg, Oral, Daily ALLERGIES Allergies Allergen Reactions Codeine Hives and Rash [...] palpitations Ziprasidone Hcl Hives and Palpitations palpitations Aloe Facial numbness/tongue numbness Amitriptyline Other Reaction(s): Abnormal Behavior, Mental Status Change, other, Vomiting hallucinate Hillrose Saline Nasal Gel [Aloe-Sodium Chloride] Facial numbness/tongue [...] Change, other, Unknown hallucinate Shellfish Allergy Rash Other Reaction(s): rash Wound Dressing Adhesive Rash Other Reaction(s): other Ziprasidone Palpitations Other Reaction(s): other, Unknown PROBLEMS Active Ambulatory Problems Diagnosis Date Noted Allergic rhinitis 09/14/2021 Altered bowel function 05/21/2022 Change in bowel habits 02/25/2023 Anxiety state ([facility]) 05/01/2011 Anxiety 05/01/2011 Bicipital tenosynovitis 10/22/2013 Attention deficit hyperactivity disorder ([facility]) 10/05/2021 Gastric foreign body 02/25/2023 Esophageal dysmotility 05/21/2022 Gastric bezoar 05/21/2022 Gastroesophageal reflux disease 10/23/2013 Bipolar disorder ([facility]) 10/23/2013 Borderline personality disorder ([facility]) 10/05/2021 Chronic depression ([facility]) 05/01/2011 Chronic obstructive lung disease ([facility]) 10/23/2013 Contracture, right ankle 02/25/2023 Colon polyp 02/25/2023 Chronic, continuous use of opioids 02/28/2015 Current smoker 10/10/2021 Degenerative joint disease of shoulder region 10/22/2013 Diabetes ([facility]) 02/25/2023 Type 2 diabetes mellitus ([facility]) 10/10/2021 Xerostomia 12/14/2020 Vertigo 10/05/2021 Dizziness 02/25/2023 Urinary frequency 02/25/2023 Urethral stricture 05/21/2022 TMJ arthralgia 11/12/2022 Tertiary contraction of esophagus 11/12/2022 Tarsal tunnel syndrome 11/12/2022 Urge incontinence 02/25/2023 Stress incontinence of urine 05/21/2022 Sleep apnea 11/12/2022 Sciatica 05/21/2022 Pain in limb 05/01/2011 Neck pain 09/20/2011 Low back pain 05/01/2011 Headache 10/08/2012 Flank pain 02/25/2023 Fibromyalgia 04/12/2020 Chronic back pain 04/12/2020 Bilateral low back pain with sciatica 02/25/2023 Backache 10/23/2013 Plantar fasciitis, bilateral 11/12/2022 Personality disorder ([facility]) 11/12/2022 Peripheral venous insufficiency 05/21/2022 Parotid gland enlargement 12/14/2020 Overweight 01/24/2023 Osteoporosis ([facility]) 02/25/2023 Osteopenia of hip 02/25/2023 Osteochondritis dissecans of right ankle 05/21/2022 Obesity with body mass index 30 or greater 05/21/2022 BMI 30.0-30.9,adult 02/25/2023 Neuropathy 10/05/2021 Nausea and vomiting 02/25/2023 Downey's neuroma of both feet 11/12/2022 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 topographical field assistant ([facility]) 01/03/2023 Mitral valve prolapse 10/23/2013 Migraine ([facility]) 04/20/2012 Menopause 02/25/2023 Lumbosacral spondylosis without myelopathy 09/08/2019 Lumbar spondylosis 01/26/2020 Loose stools 11/12/2022 Leukocytosis 11/12/2022 Leg pain, bilateral 09/20/2011 Left shoulder pain 10/22/2013 Kidney stone 10/23/2013 Irritable bowel syndrome with diarrhea 10/10/2021 Nocturia 02/25/2023 Mixed incontinence urge and stress 11/12/2022 Incontinence 05/21/2022 Incomplete emptying of bladder 02/25/2023 Hyponatremia 11/12/2022 History of renal calculi 05/21/2022 History of kidney stones 02/25/2023 History of gastroesophageal reflux (GERD) 02/28/2015 History of fibromyalgia 02/28/2015 History of depression 02/28/2015 History of bipolar disorder 02/28/2015 History of COPD 02/28/2015 History of attention deficit hyperactivity disorder (ADHD) 02/28/2015 History of anxiety disorder 02/28/2015 Hemorrhoids 02/25/2023 Hammer toes of both feet 11/12/2022 Generalized osteoarthritis 10/23/2013 Posttraumatic stress disorder ([facility]) 10/05/2021 Compression injury of nerve 02/25/2023 Obsessive-compulsive disorder ([facility]) 10/05/2021 Generalized anxiety disorder (CMS/HCC) 10/23/2013 Gastric erosions 11/12/2022 Fibromyositis 10/23/2013 Feeling of incomplete bladder emptying 11/12/2022 Family history of colorectal cancer 02/25/2023 Essential hypertension ([facility]) 10/10/2021 Screen for colon cancer 02/25/2023 Encounter for medication monitoring 10/22/2022 Dysuria 02/25/2023 Dysphagia 05/21/2022 Disorder of sacrum 01/26/2020 Disorder of bursae of shoulder region 10/22/2013 Difficulty walking 05/21/2022 Diabetic peripheral neuropathy ([facility]) 05/21/2022 Diabetes mellitus without complication ([facility]) 02/25/2023 Osteoarthritis 04/12/2020 Deformity of metatarsal 02/25/2023 Gastritis 11/12/2022 Sacral contusion 04/04/2023 Lumbar strain, sequela 04/04/2023 Hyperlipidemia (CMS/HCC) 10/23/2013 Cervical paraspinal muscle spasm 05/02/2023 Lumbar radiculopathy 05/02/2023 Restless leg syndrome 05/02/2023 Drug-induced parkinsonism (HCC) ([facility]) 05/02/2023 Lesion of ulnar nerve, bilateral 07/08/2023 Lumbar degenerative disc disease 06/24/2023 Cubital tunnel syndrome, bilateral 06/20/2023 Abnormality of gait and mobility 07/01/2023 OAB (overactive bladder) 10/03/2023 History of UTI 11/20/2023 Gross hematuria 10/03/2023 Benign paroxysmal positional vertigo due to bilateral vestibular disorder 01/20/2024 Carpal tunnel syndrome 03/10/2024 Enthesopathy of elbow 03/10/2024 Lesion of left ulnar nerve 03/10/2024 Diastolic dysfunction 04/08/2024 History of carpal tunnel surgery 04/08/2024 History of sinus surgery 04/08/2024 Hypokalemia 04/08/2024 Nicotine dependence, cigarettes, uncomplicated 04/08/2024 Resolved Ambulatory Problems Diagnosis Date Noted No Resolved Ambulatory Problems Past Medical History: Diagnosis Date Asthma ([facility]) Bunion COPD (chronic obstructive pulmonary disease) ([facility]) Depression ([facility]) Fallen arches GERD (gastroesophageal reflux disease) Hammer toe Hypertension ([facility]) Kidney stones NV (myocardial infarction) ([facility]) Downey's neuroma Onychomycosis Oxygen dependent Plantar fasciitis SVT (supraventricular tachycardia) ([facility]) Tinea pedis HISTORY PAST MEDICAL HISTORY SOCIAL HISTORY Past Medical History: Diagnosis Date Asthma ([facility]) Bipolar disorder ([facility]) Bunion COPD (chronic obstructive pulmonary disease) ([facility]) Depression ([facility]) Diabetes ([facility]) Fallen arches Fibromyalgia GERD (gastroesophageal reflux disease) Hammer toe Hypertension ([facility]) Kidney stones NV (myocardial infarction) ([facility]) Migraine ([facility]) Mitral valve prolapse Downey's neuroma Onychomycosis Osteoarthritis Oxygen dependent Plantar fasciitis Sleep apnea SVT (supraventricular tachycardia) ([facility]) Tinea pedis Social History Tobacco Use Smoking status: Every Day Current packs/day: 0.50 Average packs/day: 0.5 packs/day for 38.9 years (19.5 ttl pk-yrs) Types: Cigarettes Start date: 08/19/1985 Passive exposure: Current Smokeless tobacco: Never Vaping Use Vaping status: Unknown Substance Use Topics Alcohol use: Not Currently Comment: caffeine intake: 1-2 cups per day Drug use: Not Currently FAMILY HISTORY Family History Problem Relation Name Age of Onset Diabetes Mother Alcohol abuse Father SURGICAL HISTORY Past Surgical History: Procedure Laterality Date APPENDECTOMY BREAST LUMPECTOMY Left 10/2015 benign BREAST LUMPECTOMY Left 02/2016 benign BREAST SURGERY 12/2008 bilateral subareolar ductal exition CARPAL TUNNEL RELEASE x2 COLONOSCOPY 2013 egd/colonoscopy FOOT SURGERY FOOT SURGERY Right GANGLION CYST EXCISION Right 02/2016 wrist HYSTERECTOMY 2005 LITHOTRIPSY OTHER SURGICAL HISTORY left tenex OTHER SURGICAL HISTORY rt pb surgery OTHER SURGICAL HISTORY rt 2,3,4 MA REVISE ULNAR NERVE AT WRIST ulnar nerve release x 2 SINUS SURGERY x2 TOE SURGERY 2016 TOE SURGERY Right 3rd toe TOE SURGERY Bilateral 04/09/2024 RT 2nd and 4th, LT 2nd, 3rd and 4th, by dr. arango TUBAL LIGATION REVIEW OF SYSTEMS Review of Systems: Review of Systems Constitutional: Negative. HENT: Negative. Eyes: Negative. Respiratory: Negative. Cardiovascular: Negative. Gastrointestinal: Negative. Genitourinary: Negative. Musculoskeletal: Negative. Skin: Negative. Neurological: Negative. All other systems reviewed and are negative. Hematological: Negative. Endocrine: Negative. Allergic/Immunologic: Negative. OBJECTIVE Objective: Physical Exam Constitutional: Appearance: Normal appearance. She is well-developed. Genitourinary: Vulva normal. Vaginal cuff intact. Cervix is absent. Uterus is absent. Cardiovascular: Rate and Rhythm: Normal rate and regular rhythm. Abdominal: General: Bowel sounds are normal. There is no distension. Palpations: Abdomen is soft. Tenderness: There is no abdominal tenderness. There is no guarding or rebound. Musculoskeletal: General: No swelling. Normal range of motion. Right lower leg: No edema. Left lower leg: No edema. Neurological: Mental Status: She is alert and oriented to person, place, and time. Skin: General: Skin is warm and dry. Psychiatric: Mood and Affect: Mood normal. Behavior: Behavior normal. Vitals and nursing note reviewed. Exam conducted with a grab jack man present. Vitals: Estimated body mass index is 27.64 kg/m as calculated from the following: Height as of 06/18/24: 5' 4 . Weight as of this encounter: 161 lb. BP: 120/74 No LMP recorded (lmp unknown). Patient has had a hysterectomy. ASSESSMENT & PLAN ICD-10-CM 1. Well woman exam with routine gynecological exam Z01.419 THIN PREP TIS PAP AND HR HPV DNA 2. H/O: hysterectomy Z90.710 THIN PREP TIS PAP AND HR HPV DNA 3. Osteoporosis, post-menopausal (CMS/HCC) M81.0 DEXA bone density Annual: Patient presents today for an annual exam. Patient states she is doing well and has no complaints. Pap was obtained without difficulty and patient given mammogram order to have scheduled/obtained. Orders Placed This Encounter Procedures DEXA bone density Follow Up: Patient is to return in one year for annual unless needed otherwise. Documented by Allison Bryant LPN on behalf of: David Villalobos DO documented in this encounterSoutheast Missouri [id number] History of Present illness Narrative* Duane Nicole MD - 07/27/2024 2:15 PM EST Images from the original note were not included. [address] [id number] This virtual visit was made in the [facility] Date of Service: 07/27/2024 Subjective: Rock Herrera is a 53 y.o. female who [...] widespread musculoskeletal pain as well as fatigability, poorsleep, feeling tired and exhausted, no history of joint swelling In addition she has been having neck pain as well as low back pain Lab tests done previously 05/04/2024 JAIME screen, CCP, rheumatoid factor negative, both ESR CRP normal, CBC white count 13.4. Patient has been given the following medications including, atorvastatin, carvedilol, , furosemide,inhalers, nortriptyline, VESIcare. Patient had side effects from [...] past medical history, past social history, past surgicalhistory and problem list. Review of Systems: Review [...] MOUTH ONCE WEEKLY 30 MINUTES BEFORE THE FIRSTFOOD, BEVERAGE, OR MEDICINE OF THE DAY WITH [...] take one capsule by mouth once weekly 4capsule 5 flash glucose scanning reader (FREESTYLE LILLIAM 14 DAY READER) misc 1 Unit by miscellaneous route inthe morning. 1 each 0 flash glucose sensor (FREESTYLE LILLIAM 14 DAY SENSOR) kit 1 each by miscellaneous route every 14 (fourteen) days. 6 kit 1 fremanezumab-vfrm (AJOVY AUTOINJECTOR) 225 mg/1.5 mL 1.5 mL [...] MG TOTAL) BY MOUTH DAILY WITH BREAKFAST. 30tablet 11 montelukast (SINGULAIR) 10 mg tablet TAKE ONE TABLET BY MOUTH DAILY IN THE EVENING 30 tablet 11 nfldzsof-pnij-UE-calcium &mins (THERAGRAN-M) 9 mg iron-400 mcg tablet Take 1 tablet by mouth inthe morning. nebulizer accessories misc 1 Tube by [...] the homunculus. Go to the Rheumatology activity andcomplete the homunculus joint exam. ODOM-28 (CRP): -- [...] 58 (H) 12/12/2014 Imaging: Assessment and Plan: Rock Herrera is a 53 y.o. female patient with: 1. Fibromyalgia - orphenadrine (NORFLEX) 100 mg 12 hr tablet; Take 1 tablet (100 mg total) by mouth in the morning.One tab at 8 PM. Dispense: 30 tablet; [...] is being used in lieu of a blzx-rp-[id number] encounter because of current pandemic situation related to Covid- 19. This is to avoid akvg-cp-huvu contact whenever possible and limit spread of [...] or corrected. Thank you for your understanding. [facility] [place] [address] [place] [address], [address] [place] [address] Office: [phone] documented in this encounterC[facility]10-[facility] History of Present illness Narrative* Martinvirgie Arango, DPM - 06/18/2024 3:00 PM EDT Patient: Rock Herrera : 1970 PCP: Robert Giron MD SUBJECTIVE Patient presents today for follow-up of EDL tendinitis to right foot and has not been using Voltaren gel with Tylenol and states negative relief and rates pain a . Pt is dm2 Patient has history of [...] Behavior, Mental Status Change, other, Vomiting hallucinate Hillrose Saline Nasal Gel [Aloe-Sodium Chloride] Facial numbness/tongue [...] History: Past Medical History: Diagnosis Date Asthma ([facility]) Bipolar disorder ([facility]) Bunion COPD (chronic obstructive pulmonary disease) ([facility]) Depression ([facility]) Diabetes ([facility]) Difficulty walking Fallen arches Fibromyalgia Hammer toe Kidney stones Migraine ([facility]) Mitral valve prolapse Downey's neuroma [...] time., Disp: , Rfl: Continuous Blood Gluc Pbx Repairer (Dexcom G6 overage shortage and damage clerk) device, 1 UNIT YEARLY, Disp: , Rfl: Continuous Blood Gluc Sensor (Dexcom G6 Sensor) [facility] [place], USE 1 UNIT DIRECTED AND CHANGE EVERY 10 DAYS, Disp: , Rfl: ergocalciferol (Vitamin D2) 1.25 MG (70269 UT) capsule, Take 1 capsule by mouth [...] oral route., Disp: , Rfl: nystatin (Mycostatin) [id number] UNIT/ML suspension, TAKE 5ML FOUR TIMES A [...] tablet by mouth every 8 (eight) hours ifneeded for severe pain for up to 5 [...] pedal pulses to bilateral feet Neuro: 5.07 Mason Gina monofilament test positive to digits and [...] tip of the right hallux and right 3rdtoe ASSESSMENT 1. Acquired deformity of right toe 2. Diabetes 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 polyneuropathy, with long-term current use of insulin ([facility]) PLAN Patient to continue with [...] consider Martin Arango DPM documented in this encounterSoutheast Missouri [id number] Miscellaneous Notes* Telephone Encounter - Leonor Kunz CNA - 06/17/2024 12:02 PM EDT Patient notified of US results from Dr. Nicole. (06/16/24) documented in this encounterC[facility]10-30-2024 Telephone encounter Note* Telephone Encounter - Leonor Kunz CNA - 06/17/2024 12:02 PM EDT Patient notified of US results from Dr. Nicole. (06/16/24) [facility] NoteOrthopaedic Surgery Subjective Pain and New Patient of the Left Arm 06/16/24 Rock Herrera is a 53 y.o. female new [...] hand. 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 wrist extension/flexion 5/5 Sensation: intact over median, ulnar, and radial nerve distributions Positive carpal tunnel compression, Positive Tinel's at the Carpal Tunnel, and Positive Tinel's at the Cubital Tunnel Cardiovascular: Well-perfused digits Imaging: None No imaging performed at this visit. Assessment/Plan Rock Herrera is a 53 y.o. female with [...] reason I do not see it in epic, although I can see other clinic notes [...] there is anything different I will contact her.[facility] NoteUS SOFT TISS HEAD NECK Procedure: US SOFT TISS HEAD NECK; Reason for Exam: Parotid gland enlargement; Xerostomia; Comparison: None IMPRESSION: * OMERACT 1. Normal sonographic appearance of the parotid gland parenchyma. Normal Doppler flow. * 1.0 x 0.7 x 1.0 cm simple appearing left infraparotid cystic lesion. Finalized by Dandre Prabhakar on 06/16/2024 7:56 [facility] 06-15-2024 Miscellaneous Notes* Telephone Encounter - Simi Petty CMA - 06/15/2024 12:22 PM EDT Patient called today complaining that the celbrex is making her sick. She is vomiting and she also has thrush in her moth so was wondering what you recommended she do? * Telephone Encounter - Robert Giron DO - 06/15/2024 12:22 PM EDT I sent a nystatin solution for and she can stop the Celebrex or take it with food if she is not taking it with food. She can use Tylenol as well. * Telephone Encounter - Simi Petty CMA - 06/15/2024 12:22 PM EDT Patient notified documented in this encounterCleveland [facility]10-28-2024 Telephone encounter Note* Telephone Encounter - Simi Petty CMA - 06/15/2024 12:22 PM EDT Patient called today complaining that the celbrex is making her sick. She is vomiting and she also has thrush in her moth so was wondering what you recommended she do? [facility] Telephone encounter Note* Telephone Encounter - Robert Giron DO - 06/15/2024 12:22 PM EDT I sent a nystatin solution for and she can stop the Celebrex or take it with food if she is not taking it with food. She can use Tylenol as well. [facility] Telephone encounter Note* Telephone Encounter - Simi Petty CMA - 06/15/2024 12:22 PM EDT Patient notified [facility] Telephone encounter Note* Telephone Encounter - Janelle Darin - 06/15/2024 8:21 AM EDT Rock called the office 06/10/24 for left knee pain, I took a yellow note for this and put it up for the doctors to look at. Called pt 06/15/24 to tell her we wouldn't be able to assist her at this time. Told her it was best to follow up with PCP to look at he next step for her. She was understanding. [facility] [place] [id number] Miscellaneous Notes* Telephone Encounter - Janelle Webster - 06/15/2024 8:21 AM EDT Rock called the office 06/10/24 for left knee [...] her. She was understanding. documented in this encounterSoutheast Missouri [id number] History of Present illness Narrative* Brandon Simpson MD - 06/11/2024 3:30 PM EDT Images from the original note were not included. [facility] 06/11/24 Rock Herrera is a 53 y.o. year old [...] Date Anxiety Anxiety Arthritis Asthma Bipolar disorder ([facility]) Carpal tunnel syndrome Chronic kidney disease stage 3 COPD (chronic obstructive pulmonary disease) ([facility]) Depression Fibromyalgia GERD (gastroesophageal reflux disease) Heart abnormality 01/24/2020 leaky valve going for testing Hyperlipidemia Hypertension Mitral valve prolapse Myocardial infarction ([facility]) Osteoarthritis Osteoporosis Sleep apnea no cpap Spinal stenosis Vertigo Visual impairment glasses Past Surgical History: Procedure Laterality Date APPENDECTOMY ARTHROSCOPY WITH LATERAL MENISCECTOMY KNEE Right 06/06/2022 Performed by Kurt Chapman MD at [facility] BREAST FIBROADENOMA SURGERY CARPAL TUNNEL RELEASE Bilateral CATARACT EXTRACTION Bilateral CHONDROPLASTY, SYNOVECTOMY Right 06/06/2022 Performed by Kurt Chapman MD at [facility] COLONOSCOPY 2020 in CORRECTION HAMMER TOE Right EPIDURAL BLOCK INJECTION HYSTERECTOMY one ovary remains INJECTION BLOCK NERVE KNEE Left Genicular Left 06/05/2024 Performed by Avi Maharaj MD at [facility] INJECTION MEDIAL BRANCH NERVE BLOCK: bilat L45 51 Bilateral 09/25/2019 Performed by Avi Maharaj MD at [facility] INJECTION SI JOINT Bilateral SI Joint Bilateral 03/25/2020 Performed by Avi Maharaj MD at [facility] LAPAROSCOPIC CHOLECYSTECTOMY N/A 03/15/2017 Performed by Karlos Quinones DO at [facility] NEUROMA SURGERY PLANTAR FASCIA RELEASE Bilateral SINUS [...] 10 min Stress: Stress Concern Present (01/24/2023) [employer] [place] [employer] - Occupational Stress Questionnaire Feeling of Stress : To some extent Social Connections: Socially Isolated (01/24/2023) Social Connection and Isolation Panel [NHANES] Frequency of Communication with Friends and Family: More than three times a week Frequency of Social Gatherings with Friends and Family: More than three times a week Attends [employer] Services: Never Active Member of Clubs or Organizations: No Attends Club or Organization Meetings: Never Marital Status: Received from [facility] Safety & Environment Housing Instability: Low Risk [...] hyperglycemia, without long-term current use of insulin ([facility]) Dose: 1 Pad Signed by: [...] 2 Dose: 100 mg Signed by: Dr. Robert [...] this medication. Commonly known as: BenadryL FREESTYLE LILLIAM 14 DAY READER misc Quantity: 1 each Refills: 0 Dose: 1 Unit Signed by: Dr. Robert Giron DO 1 Unit, miscellaneous, Daily Generic drug: flash glucose scanning reader FREESTYLE LILLIAM 14 DAY SENSOR kit Quantity: 6 kit [...] CAPSULE AFTER EACH NEXT BOWEL MOVEMENT; DO NOTEXCEED 16MG (8 CAPSULES) IN 24 HOURS Commonly known as: IMODIUM meclizine 25 mg tablet Quantity: 20 tablet Refills: 1 Dose: 25 mg Signed by: Dr. Robert Giron DO 25 mg, oral, 3 times daily PRN Commonly known as: ANTIVERT metFORMIN 500 mg tablet Quantity: 30 tablet Refills: 11 For diagnoses: Type 2 diabetes mellitus with diabetic mononeuropathy, without long-term current useof insulin ([facility]) Dose: 500 mg Signed by: Dr. Robert Giron DO 500 mg, oral, Daily with breakfast Commonly known as: GLUCOPHAGE montelukast 10 mg tablet Quantity: 30 tablet Refills: 11 Dose: 10 mg Signed by: Dr. Robert Giron DO 10 mg, oral, Nightly Commonly known as: SINGULAIR xkpvevvh-rrqm-LZ-calcium &mins 9 mg iron-400 mcg tablet Refills: 0 Dose: 1 tablet Commonly known as: THERAGRAN-M nebulizer accessories misc Quantity: 1 each Refills: 1 For diagnoses: Chronic obstructive pulmonary disease, unspecified COPD type ([facility]) Dose: 1 Tube Signed by: Dr. Robert Giron DO 1 Tube, inhal. via small vol.nebulizer, Every 6 months nebulizers misc Quantity: 1 each Refills: 1 For diagnoses: Chronic obstructive pulmonary disease, unspecified COPD type ([facility]) Dose: 1 Unit Signed by: Dr. Robert [...] Fibromyalgia Dose: 100 mg Signed by: Dr. Castilloafa 100 mg, oral, Daily, One tab at [...] were clear to auscultation. There was no dullnessto percussion. Cardiac: Regular rate and rhythm, S1 [...] procedure does not require a formal dictation. Non-Radiologistprovider performed procedures can be reviewed under Post-Op, [...] Follow-up with hematology as needed. Thank you. Brandon Simpson MD Please note that portions of this note were generated using voice recognition [place] dictation software. Although every effort was made to ensure the accuracy of this automated molder apprentice, some errors in molder apprentice may have occurred. CC: Patient Care Team: Robert Giron DO as PCP - General (Family Medicine) PCP:Robert Giron Referring MD: Robert Giron DO documented in this encounterC[facility]10-22-2024 Telephone encounter Note* Telephone Encounter - Teressa Parikh - 06/09/2024 3:40 PM EDT I did speak with patient and she understood. I did let patient know to contact pain management or her family doctor. [facility] [id number] Miscellaneous Notes* Telephone Encounter - Teressa Parikh - 06/09/2024 3:40 PM EDT I did speak with patient and she understood. I did let patient know to contact pain management or her family doctor. * Telephone Encounter - Chico Romero NP - 06/09/2024 3:33 PM EDT Needs to follow up with pain management. We will not be sending any medication. * Telephone Encounter - Teressa Parikh - 06/09/2024 3:27 PM EDT Patient called again requesting a RX be sent over for pain. Please send to drug [facility] in [place]. Patient phone number is [phone]. * Telephone Encounter - Teressa Parikh - 06/09/2024 10:38 AM EDT Patient called stating that she is in a lot of pain with her LT leg. Patient stated she has tried ice, heat and lidocaine cream. She stated she had the nerve block test done 06/05. Patient would like some suggestions. Please advise [phone]. documented in this encounterSoutheast [facility] HospitalYmpmusboyg77-02-1075 Telephone encounter Note* Telephone Encounter - Chico Romero NP - 06/09/2024 3:33 PM EDT Needs to follow up with pain management. We will not be sending any medication. [facility] Work Phone: [phone]) 886-695610-22-2024 Telephone encounter Note* Telephone Encounter - Teressa Parikh - 06/09/2024 3:27 PM EDT Patient called again requesting a RX be sent over for pain. Please send to [facility] in [place]. Patient phone number is [phone]. [facility] [id number] Telephone encounter Note* Telephone Encounter - Teressa Parikh - 06/09/2024 10:38 AM EDT Patient called stating that she is in a lot of pain with her LT leg. Patient stated she has tried ice, heat and lidocaine cream. She stated she had the nerve block test done Fri 06/05. Patient would like some suggestions. Please advise [phone]. [facility] [id number] Miscellaneous Notes* Telephone Encounter - Eliza Frost - 06/08/2024 10:28 AM EDT Pt calls today 06/08 with a compliant [...] sensitive skin Please advise documented in this encounterCleveland Clinic [facility] Hospital10-21-2024 Telephone encounter Note* Telephone Encounter - Eliza Frost - 06/08/2024 10:28 AM EDT Pt calls today 06/08 with a compliant [...] treatment due to sensitive skin Please advise [facility] Encarnate [id number] Telephone encounter Note* Telephone Encounter - Amaris Huynh MA - 05/28/2024 1:26 PM EDT Patient calls requesting refill of Ammonium Lactate. (I don't see it in the chart for the Refill ), to [facility]. She says that her feet are really dry and also wants to let you know that her toes still hurt. [facility] [id number] Miscellaneous Notes* Telephone Encounter - Amaris Huynh MA - 05/28/2024 1:26 PM EDT Patient calls requesting refill of Ammonium Lactate. (I don't see it in the chart for the Refill ), to [facility]. She says that her feet are really dry and also wants to let you know that her toes still hurt. documented in this encounterSoutheast Missouri HospitalLunehikefa11-47-0454 History of Present illness Narrative* Alexsandra Smart PA-C - 05/20/2024 11:00 AM EDT [facility] [address] [place] [address] Patient: Rock Herrera Sex: female : 1970 Age: 53 y.o. PCP: Robert Giron DO 05/20/2024 Rock Herrera is here for a(n) follow up. Patient was last seen in 2019. Referred to [facility]. Patientis here for left knee pain. Has previously [...] Date Anxiety Anxiety Arthritis Asthma Bipolar disorder ([facility]) Carpal tunnel syndrome Chronic kidney disease stage 3 COPD (chronic obstructive pulmonary disease) ([facility]) Depression Fibromyalgia GERD (gastroesophageal reflux disease) Heart abnormality 01/24/2020 leaky valve going for testing Hyperlipidemia Hypertension Mitral valve prolapse Myocardial infarction ([facility]) Osteoarthritis Osteoporosis Sleep apnea no cpap Spinal stenosis Vertigo Visual impairment glasses Past Surgical History: Procedure Laterality Date APPENDECTOMY ARTHROSCOPY WITH LATERAL MENISCECTOMY KNEE Right 06/06/2022 Performed by Kurt Chapman MD at [facility] BREAST FIBROADENOMA SURGERY CARPAL TUNNEL RELEASE Bilateral CATARACT EXTRACTION Bilateral CHONDROPLASTY, SYNOVECTOMY Right 06/06/2022 Performed by Kurt Chapman MD at [facility] COLONOSCOPY 2020 in [place]MER TOE Right EPIDURAL BLOCK INJECTION HYSTERECTOMY one ovary remains INJECTION MEDIAL BRANCH NERVE BLOCK: bilat L45 51 Bilateral 09/25/2019 Performed by Avi Maharaj MD at [facility] INJECTION SI JOINT Bilateral SI Joint Bilateral 03/25/2020 Performed by Avi Maharaj MD at [facility] LAPAROSCOPIC CHOLECYSTECTOMY N/A 03/15/2017 Performed by Karlos Quinones DO at [facility] NEUROMA SURGERY PLANTAR FASCIA RELEASE Bilateral SINUS [...] 10 min Stress: Stress Concern Present (01/24/2023) [employer] [place] [employer] - Occupational Stress Questionnaire Feeling of Stress : To some extent Social Connections: Socially Isolated (01/24/2023) Social Connection and Isolation Panel [NHANES] Frequency of Communication with Friends and Family: More than three times a week Frequency of Social Gatherings with Friends and Family: More than three times a week Attends [employer] Services: Never Active Member of Clubs or Organizations: No Attends Club or Organization Meetings: Never Marital Status: Interpersonal Safety: Unknown (10/10/2023) Received from [facility] Safety & Environment Fear of Current [...] during discussion, demonstrated appropriate cognitive reasoning and understandingof the medical condition by asking appropriate questions [...] is noted without significant erythema. Pain is elicitedwith flexion and extension of the knee both actively and passively. Some grinding is noted with these motions. There is no notable ligamental laxity or instability and drawer test is negative. Assessment/Treatment Plan: Rock was seen today for knee pain. Diagnoses [...] procedure was described in detail to the patientas well as the potential benefits of pain [...] as a result. Additional consideration will need darryl given to timing the procedure early in [...] PA-C by Poly Kaminski RN. Provider Statement: IALEXSANDRA PA-C, personally performed the services described in the documentation, as scribed by Poly Kaminski RN in my presence, and it is both accurate and complete. Poly Kaminski RN 05/20/24 1138 Poly Kaminski RN 05/20/24 1139 Alexsandra Smart PA-C 05/20/24 1159 documented in this encounterCleveland Clinic [facility] Hospital10-02-2024 Instructions* Patient Instructions* Poly Kaminski RN - 05/20/2024 11:00 AM EDT Epidural Steroid Injection (JAELYN) / Nerve Root Injection / Nerve Block These procedure(s) involve the injection of a steroid and anesthetic into the epidural space or thenerve sheath that is both diagnostic and potentially therapeutic for alleviating discomfort of the legs and arms secondary to compression of the respective nerves due to bulging discs, bone spurs andother potential causes. Steroids are potent anti-inflammatory drugs [...] a safety precaution, you must have a cart driver after a lumbar nerve root injection, [...] take you to the nearest emergency room. Tellthe emergency room staff that you recently had [...] it back to normal. documented in this encounterCleveland Clinic [facility] Hospital09-30-2024 Miscellaneous Notes* Telephone Encounter - Leonor Kunz CNA - 05/18/2024 4:21 PM EDT [facility] pharmacy called to verify Dr. Nicole wanted the quantity of orphenadrine to be 30 vs to 60 since patient will take BID. * Telephone Encounter - Duane Nicole MD - 05/18/2024 4:21 PM EDT One tab at bed time * Telephone Encounter - Leonor Kunz CNA - 05/18/2024 4:21 PM EDT Pharmacy notified documented in this encounterCleveland Clinic [facility] Hospital09-30-2024 Telephone encounter Note* Telephone Encounter - Leonor Kunz CNA - 05/18/2024 4:21 PM EDT [facility] pharmacy called to verify Dr. Nicole wanted the quantity of orphenadrine to be 30 vs to 60 since patient will take BID. [facility]09-30-2024 Telephone encounter Note* Telephone Encounter - Duane Nicole MD - 05/18/2024 4:21 PM EDT One tab at bed time [facility]09-30-2024 Telephone encounter Note* Telephone Encounter - Leonor Kunz CNA - 05/18/2024 4:21 PM EDT Pharmacy notified [facility]09-26-20[facility] History of Present illness Narrative* Martin Arango DPM - 05/14/2024 10:10 AM EDT Patient: Rock Herrera : 1970 PCP: Robert Giron MD SUBJECTIVE Patient presents today for follow-up of EDL tendinitis to right foot and has not been using Voltaren gel with Tylenol and states negative relief and rates pain a /10. Pt is dm2 Patient has history of right foot HAV surgery in the past and has been wearing walking boot with minimal improvement Patient is scheduled for pain management for her left knee Patient also presents today for total permanent nail avulsion to left 3 4 and 5 digits and right 2 and 4 digits Patient denies nausea vomiting chills She states she has been using Neosporin to the area with dry sterile dressing and states negative drainage from the area Allergies: Allergies Allergen Reactions Codeine Hives and [...] Behavior, Mental Status Change, other, Vomiting hallucinate Hillrose Saline Nasal Gel [Aloe-Sodium Chloride] Facial numbness/tongue [...] History: Past Medical History: Diagnosis Date Asthma ([facility]) Bipolar disorder ([facility]) Bunion COPD (chronic obstructive pulmonary disease) ([facility]) Depression ([facility]) Diabetes ([facility]) Difficulty walking Fallen arches Fibromyalgia Hammer toe Kidney stones Migraine ([facility]) Mitral valve prolapse Downey's neuroma Onychomycosis Osteoarthritis [...] time., Disp: , Rfl: Continuous Blood Gluc Pbx Repairer (Dexcom G6 overage shortage and damage clerk) device, 1 UNIT YEARLY, Disp: , Rfl: Continuous Blood Gluc Sensor (Dexcom G6 Sensor) [facility] [place], USE 1 UNIT DIRECTED AND CHANGE EVERY 10 DAYS, Disp: , Rfl: ergocalciferol (Vitamin D2) 1.25 MG (65094 UT) capsule, Take 1 capsule by mouth [...] oral route., Disp: , Rfl: nystatin (Mycostatin) [id number] UNIT/ML suspension, TAKE 5ML FOUR TIMES A [...] tablet by mouth every 8 (eight) hours ifneeded for severe pain for up to 5 [...] negative serous drainage. Diminished hair growth bilateral Vascular: Palpable pedal pulses to bilateral feet Neuro: 5.07 Mason Gina monofilament test positive to digits and [...] on palpation to bilateral nail avulsion sites Xray: Verbal order today for x-rays be taken by staff. AP/Oblique/Lateral 3 view radiographs today of the right foot demonstrated the following: Notable screw fixation intact to 1st metatarsal and 2nd metatarsal with negative fractures identified ASSESSMENT 1. Capsulitis of metatarsophalangeal (MTP) joint of right foot 2. Paronychia, toe, right 3. Paronychia of toe of left foot 4. Diabetes 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 polyneuropathy, with long-term current use of insulin ([facility]) PLAN Pt to d/c abx. Patient to continue with OTC oral anti - inflammatories as needed for pain. Pt to keep DSD on area of interest while in shoegear, otherwise may expose to air in a clean environment. Patient to report to pain management and will continue with pain managed as long-term chronic pain issues of multiple places and discussed may need to have pain management for her foot issues as wellif not improving Patient to continue with oral anti - inflammatories as needed for pain and recommended OTC medications such as tylenol or Ibuprofen Martin Arango DPM documented in this encounterSoutheast [facility] [id number] Telephone encounter Note* Telephone Encounter - Anjelica Rutledge - 05/11/2024 12:28 PM EDT Patient called and states that the Biotin is not helping with Neuropathy. States that it is gettingworse and more frequent. Please advise. [facility] [place] [id number] Miscellaneous Notes* Telephone Encounter - Anjelica uRtledge - 05/11/2024 12:28 PM EDT Patient called and states that the Biotin is not helping with Neuropathy. States that it is gettingworse and more frequent. Please advise. documented in this encounterSoutheast [place] HospitalUmezcsiypg91-57-0519 Telephone encounter Note* Telephone Encounter - Inessa Fernandez RN - 05/05/2024 4:20 PM EDT [facility] sent will not see pt due to being discharged from the practice. Spoke with pt, she is willing to try [facility] pain clinic and as second choice will see Dr Pink. Will send referral to Dr Maharaj at [facility] [place] [id number] Miscellaneous Notes* Telephone Encounter - Inessa Fernandez RN - 05/05/2024 4:20 PM EDT [facility] sent will not see pt due to being discharged from the practice. Spoke with pt, she is willing to try [facility] pain clinic and as second choice will see Dr Pink. Will send referral to Dr Maharaj at [facility] * Telephone Encounter - Verona Castano - 05/05/2024 11:04 AM EDT Patient called stating that a referral was going to be sent to [facility] pain management. She did call over there and they told her that they didn't receive anything. documented in this encounterSoutheast [place] [id number] Telephone encounter Note* Telephone Encounter - Verona Castano - 05/05/2024 11:04 AM EDT Patient called stating that a referral was going to be sent to [facility] pain management. She did call over there and they told her that they didn't receive anything. [facility] [place] [id number] History of Present illness Narrative* Carlos Sanchez MD - 04/27/2024 2:00 PM EDT Images from the original note were not included. CHIEF COMPLAINT REASON FOR VISIT: Headaches, vertigo, neuropathy HPI: Rock Herrera is a 53 y.o. female who presents for A follow up for migraines, vertigo, RLS, neuropathy, and lumbar radiculopathy. Patient states she has still not gotten her nurtec from [facility]. She states that we need to try and sent through her regular pharmacy, States she has been out for a while. She gets nauseated before a migraine hits. She has one right now. She states she gets a couple bad ones a week. She is wondering if she can get called in Zofran or phenergan to help with the nausea. Patient states she has not been sleeping the greatest. She states she is on percocet for her feet. She states she is having pain in her back today. She states she did get her scooter and does wellwith that, She states her balance is still off. She states she has had improvement in her vertigo. Admits to numbness and tingling in her legs and feet. Denies any other concerns. CURRENT MEDICATIONS: ALLERGIES/DISCONTINUE MEDICATIONS Current Outpatient Medications Medication Instructions Ajovy 225 mg, Subcutaneous, Every 30 days albuterol 2.5 mg, Nebulization, Every 6 hours Alcohol Swabs (Global Alcohol Prep Ease) 70 % pads APPLY 1 PAD TOPICALLY EVERY 14 (FOURTEEN) DAYS. alendronate (Fosamax) 70 MG tablet TAKE ONE TABLET BY MOUTH ONCE WEEKLY 30 MINUTES BEFORE THE FIRSTFOOD, BEVERAGE, OR MEDICINE OF THE DAY WITH PLAIN WATER ALPRAZolam (XANAX) 1 mg, Oral, Nightly PRN ARIPiprazole (ABILIFY) 15 mg, Oral, Daily atorvastatin (LIPITOR) 80 mg, Oral, Daily biotin 10 mg, Oral, 2 times daily calcium carbonate 1,500 mg, Oral, 2 times daily carvedilol (COREG) 25 mg, Oral, 2 times daily cetirizine (ZYRTEC) 10 mg, Oral, Daily clomiPRAMINE (ANAFRANIL) 50 mg, Oral, Every 24 hours Continuous Glucose Transmitter (Dexcom G6 transmitter) misc 1 UNIT BY MISCELLANEOUS ROUTE EVERY 3 (THREE) MONTHS. dicyclomine (Bentyl) 20 MG tablet TAKE 1 TABLET BY MOUTH EVERY 6 TO 8 HOURS NEEDED FOR CRAMPS dilTIAZem CD (CARDIZEM CD) 120 mg, Oral, Daily ergocalciferol (Vitamin D2) 1.25 MG (71196 UT) capsule 1 capsule, Oral, Weekly furosemide (LASIX) 20 mg, Oral, Daily glycopyrrolate (Robinul) 2 MG tablet TAKE 1 TABLET (2 MG) BY MOUTH AT BEDTIME lidocaine (Lidoderm) 5 % patch PLACE 1 PATCH ON THE SKIN DAILY. REMOVE & DISCARD PATCH WITHIN 12 HOURS OR DIRECTED BY loperamide (Imodium) 2 MG capsule TAKE 2 CAPSULES BY MOUTH AFTER 1ST LOOSE STOOL AND 1 CAPSULE AFTER EACH NEXT BOWEL MOVEMENT; DO NOT EXCEED 16MG (8 CAPSULES) IN 24 HOURS meclizine (ANTIVERT) 25 mg, Oral, 3 times daily PRN metFORMIN (GLUCOPHAGE) 500 mg, Oral, Daily with breakfast montelukast (SINGULAIR) 10 mg, Oral, Every evening nortriptyline (PAMELOR) 25 mg, Oral, 4 times daily Nurtec 75 mg, Sublingual, As needed nystatin (Mycostatin) [id number] UNIT/ML suspension TAKE 5ML BY MOUTH FOUR TIMES A DAY (MORNING, NOON, EVENING, BEDTIME) FOR 5 DAYS. nystatin (Mycostatin) cream APPLY TO AFFECTED AREA VIA TOPICAL ROUTE TWICE A DAY omeprazole (PriLOSEC) [address] capsule Take 1 capsule every day by oral route. ondansetron (Zofran) 4 MG tablet TAKE 1 TABLET BY MOUTH EVERY 12 HOURS FOR 10 DAYS NEEDED FOR NAUSEA AND VOMITING ondansetron (ZOFRAN) 4 mg, Oral, Every 8 hours PRN oxyCODONE-acetaminophen (Percocet) 10-325 MG tablet 1 tablet, Oral, Every 6 hours PRN solifenacin (VESICARE) 10 mg, Oral, Daily Ventolin HFA 108 (90 Base) MCG/ACT inhaler 1 puff, Inhalation, 3 times daily Allergies Allergen Reactions Codeine Hives and Rash [...] palpitations Ziprasidone Hcl Hives and Palpitations palpitations Aloe Facial numbness/tongue numbness Amitriptyline Other Reaction(s): Abnormal Behavior, Mental Status Change, other, Vomiting hallucinate Hillrose Saline Nasal Gel [Aloe-Sodium Chloride] Facial numbness/tongue [...] Change, other, Unknown hallucinate Shellfish Allergy Rash Other Reaction(s): rash Wound Dressing Adhesive Rash Other Reaction(s): other Ziprasidone Palpitations Other Reaction(s): other, Unknown Medications Discontinued During This Encounter Medication Reason Nurtec 75 MG tablet dispersible Reorder biotin 10 MG capsule PAST MEDICAL HISTORY: SURGICAL/SOCIAL/FAMILY HISTORY DEPRESSION SCREEN: Past Medical History: Diagnosis Date Asthma ([facility]) Bipolar disorder ([facility]) Bunion COPD (chronic obstructive pulmonary disease) ([facility]) Depression ([facility]) Diabetes ([facility]) Fallen arches Fibromyalgia GERD (gastroesophageal reflux disease) Hammer toe Hypertension ([facility]) Kidney stones NV (myocardial infarction) ([facility]) Migraine ([facility]) Mitral valve prolapse Downey's neuroma Onychomycosis Osteoarthritis Oxygen dependent Plantar fasciitis Sleep apnea SVT (supraventricular tachycardia) ([facility]) Tinea pedis Past Surgical History: Procedure Laterality Date APPENDECTOMY BREAST LUMPECTOMY Left 10/2015 benign BREAST LUMPECTOMY Left 02/2016 benign BREAST SURGERY 12/2008 bilateral subareolar ductal exition CARPAL TUNNEL RELEASE x2 COLONOSCOPY 2013 egd/colonoscopy FOOT SURGERY FOOT SURGERY Right GANGLION CYST EXCISION Right 02/2016 wrist HYSTERECTOMY 2005 LITHOTRIPSY OTHER SURGICAL HISTORY left tenex OTHER SURGICAL HISTORY rt pb surgery OTHER SURGICAL HISTORY rt 2,3,4 MA REVISE ULNAR NERVE AT WRIST ulnar nerve release x 2 SINUS SURGERY x2 TOE SURGERY 2016 TOE SURGERY Right 3rd toe TOE SURGERY Bilateral 04/09/2024 RT 2nd and 4th, LT 2nd, 3rd and 4th, by dr. arango TUBAL LIGATION Social History Tobacco Use Smoking status: Every Day Current packs/day: 0.50 Average packs/day: 0.5 packs/day for 38.7 years (19.3 ttl pk-yrs) Types: Cigarettes Start date: 08/19/1985 Passive exposure: Current Smokeless tobacco: Never Vaping Use Vaping status: Unknown Substance Use Topics Alcohol use: Not Currently Comment: caffeine intake: 1-2 cups per day Drug use: Not Currently Family History Problem Relation Name Age of Onset Diabetes Mother Alcohol abuse Father Depression: Not at risk (02/27/2024) Received from [employer] [facility] [employer] PHQ-2 Total Score: 0 Recent Concern: Depression - At risk (12/18/2023) [facility] from [facility] PHQ-2 Total Score: 7 REVIEW OF SYMPTOMS: Review of Systems Constitutional: Negative for chills, diaphoresis, fatigue and fever. HENT: Negative for ear pain, tinnitus and trouble swallowing. Eyes: Negative for photophobia and visual disturbance. Respiratory: Negative for cough and shortness of breath. Cardiovascular: Negative for palpitations and leg swelling. Gastrointestinal: Negative for abdominal pain and nausea. Genitourinary: Negative for difficulty urinating and urgency. Musculoskeletal: Negative for arthralgias, back pain, myalgias, neck pain and neck stiffness. Neurological: Positive for numbness and headaches. Negative for tremors, weakness and light-headedness. Psychiatric/Behavioral: Negative for agitation, confusion and suicidal ideas. OBJECTIVE: 04/27/2024 2:22 PM 04/23/2024 9:33 AM 04/09/2024 10:21 AM Vitals BMI 28.15 kg/m2 28.15 kg/m2 28.15 kg/m2 BSA (m2) 1.83 m2 1.83 m2 1.83 m2 Systolic 124 128 129 Diastolic 86 82 80 Heart Rate 74 78 Resp 18 Height (in) 5' 4 5' 4 5' 4 Weight (lb) 164 164 164 Visit Report Report Report Report EXAM: Neurological Exam Mental Status Awake, alert and oriented to person, place and time. Oriented to person, place and time. Recent andremote memory are intact. Speech is normal. Language is fluent with no aphasia. Attention and concentration are normal. Cranial Nerves CN II: Visual acuity is normal. Visual garcia full to confrontation. CN III, IV, : Extraocular movements intact bilaterally. Normal lids and orbits bilaterally. Pupils equal round and reactive to light bilaterally. CN V: Facial sensation is normal. CN VII: Full and symmetric facial movement. CN VIII: Hearing is normal. CN XII: Tongue midline without atrophy or fasciculations. Motor Normal muscle bulk throughout. Normal muscle tone. Right Left Wrist flexion 5 5 Wrist extension 5 5 Right Left Deltoid 5 5 Biceps 5 5 Triceps 5 5 Wrist flexor 5 5 Wrist extensor 5 5 Glutei 5 5 Iliopsoas 5 5 Quadriceps 5 5 Gastrocnemius 5 5 Anterior tibialis 5 5 Posterior tibialis 5 5 Sensory Light touch is normal in upper and lower extremities. Pinprick is normal in upper and lower extremities. Vibration is normal in upper and lower extremities. Reflexes Right Left Brachioradialis 2+ 2+ Biceps 2+ 2+ Patellar 2+ 2+ Achilles 2+ 2+ Right Plantar: downgoing Left Plantar: downgoing Right pathological reflexes: Jeffery's absent. Ankle clonus absent. Left pathological reflexes: Jeffery's absent. Ankle clonus absent. Coordination [id number], rapid alternating movements and [id number] normal bilaterally without dysmetria. Gait Normal casual, toe, heel and tandem gait. Romberg is absent. PROCEDURE: NONE ASSESSMENT AND PLAN: Diagnoses and all orders for this visit: Nausea and vomiting, unspecified vomiting type Continue ondansetron (Zofran) 4 MG tablet; Take 1 tablet (4 mg) by mouth every 8 (eight) hours if needed for nausea or vomiting for up to 7 days Intractable chronic migraine without aura and without status migrainosus (CMS/HCC) Continue Rimegepant Sulfate (Nurtec) 75 MG tablet dispersible; Place 75 mg under the tongue if needed (at the onset of migraine) for acute treatment. Diabetic peripheral neuropathy (CMS/HCC) Start biotin 10 MG capsule; Take 1 capsule (10 mg) by mouth in the morning and 1 capsule (10 mg) before bedtime for nerve health. Follow up 3 months documented in this encounterSoutheast Missouri [id number] History of Present illness Narrative* Martin Arango, MERLE - 04/23/2024 9:20 AM EDT Patient: Rock Herrera : 1970 PCP: Robert Giron MD SUBJECTIVE Patient presents today for follow-up of EDL tendinitis to right foot and has not been using Voltaren gel with Tylenol and states negative relief and rates pain a 5/10. Pt is dm2 Patient has history of right foot HAV surgery in the past Patient also presents today for total permanent nail avulsion to left 3 4 and 5 digits and right 2 and 4 digits Patient denies nausea vomiting chills She states she has been using Neosporin to the area with dry sterile dressing and states minimal drainage from the area Allergies: Allergies Allergen Reactions Codeine Hives and [...] Behavior, Mental Status Change, other, Vomiting hallucinate Hillrose Saline Nasal Gel [Aloe-Sodium Chloride] Facial numbness/tongue [...] History: Past Medical History: Diagnosis Date Asthma ([facility]) Bipolar disorder ([facility]) Bunion COPD (chronic obstructive pulmonary disease) ([facility]) Depression ([facility]) Diabetes ([facility]) Difficulty walking Fallen arches Fibromyalgia Hammer toe Kidney stones Migraine ([facility]) Mitral valve prolapse Downey's neuroma [...] time., Disp: , Rfl: Continuous Blood Gluc Pbx Repairer (Dexcom G6 overage shortage and damage clerk) device, 1 UNIT YEARLY, Disp: , Rfl: Continuous Blood Gluc Sensor (Dexcom G6 Sensor) [facility] [place], USE 1 UNIT DIRECTED AND CHANGE EVERY 10 DAYS, Disp: , Rfl: ergocalciferol (Vitamin D2) 1.25 MG (12780 UT) capsule, Take 1 capsule by mouth [...] oral route., Disp: , Rfl: nystatin (Mycostatin) 135390 UNIT/ML suspension, TAKE 5ML FOUR TIMES A [...] tablet by mouth every 8 (eight) hours ifneeded for severe pain for up to 5 [...] and 4 digits have negative erythema with slight serous drainage. Diminished hair growth bilateral Vascular: Palpable pedal pulses to bilateral feet Neuro: 5.07 Mason Gina monofilament test positive to digits and forefoot bilaterally 125Hz tuning fork positive to 1st MPJ bilaterally Musculoskeletal: Positive pain on palpation nails 1 through 5 Ortho: Ankle range of motion less than 10 degrees of dorsiflexion at right ankle joint. Positive pain on palpation to right EDL tendon complex Minimal pain on palpation to left and right digits Minimal pain on palpation to bilateral nail avulsion sites Xray: Verbal order today for x-rays be taken by staff. AP/Oblique/Lateral 3 view radiographs today of the right foot demonstrated the following: Notable screw fixation intact to 1st metatarsal and 2nd metatarsal with negative fractures identified ASSESSMENT 1. Capsulitis of metatarsophalangeal (MTP) joint of right foot 2. Paronychia, toe, right 3. Paronychia of toe of left foot 4. Toe pain, left 5. Toe pain, right 6. Diabetes 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 polyneuropathy, with long-term current use of insulin ([facility]) PLAN Pt to d/c abx. Patient to continue with OTC oral anti - inflammatories as needed for pain. Pt to keep DSD on area of interest while in shoegear, otherwise may expose to air in a clean environment. Reviewed x-rays today with patient Patient returned to walking boot Pt to d/c abx. Patient to continue with OTC oral anti - inflammatories as needed for pain. Pt to keep DSD on area of interest while in shoegear, otherwise may expose to air in a clean environment. New prescription for Percocet as she did not get a total fill on prior visit Reviewed x-rays today with patient and to returned to walking boot Martin Arango DPM documented in this encounterSoutheast Missouri [id number] History of Present illness Narrative* Pastora Alcantara, - 04/21/2024 1:00 PM EDT Images from the original note were not included. HISTORY OF PRESENT ILLNESS: Rock Herrera is an 53 y.o. @ female. 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 A1c 5.9 on 02/27/24. +Tobacco user. LT knee pain x many years and worse x about 7 months (2023). She has had issues prior to this.She had a knee scope Dr. Serrano without relief. She does admit twisting her knee recently and made pain worse. Pain is medial, anterior and posterior. Pain can be sharp, aching, throbbing. Worse with walking, standing, stairs. Not able to walk around grocery store, has to use motorized cart. Pain at rest 8/10 with activities 10+/10. She is taking percocet s/p foot surgery. Intermittent swelling.. Intermittent catching and locking. Intermittentgive way sensation. Uses a walker prn. Has tried TYL without relief. Using heat with some relief at times. She tried wearing a brace, she got this from [facility] orthopedics. She was advised to quit smoking by [facility]. Had cortisone injx in the past without relief. She was approved for the gel injections but had them on the RT and opted to not have them done on the left. Has tried voltaren gel without relief. [facility] and had xrays of the LT knee and was prescribed lidocaine patches (without relief). She then had an MRI of the LT knee done on 03/27/24. [place]: ER/XR 01/31/24 [facility], MRI/03/27/24/[facility], Dr. Serrano knee arthroscopy (unsure of the year), mickie BAUER, [facility] orthopedics steroid injections spring 2023, lidocaine patches, walker, voltaren gel MEDICATION: Current Outpatient Medications on File Prior to Visit Medication Sig Dispense Refill albuterol (2.5 MG/3ML) 0.083% nebulizer solution Take 2.5 mg by nebulization every 6 (six) hours. Alcohol Swabs (Global Alcohol Prep Ease) 70 % pads APPLY 1 PAD TOPICALLY EVERY 14 (FOURTEEN) DAYS. alendronate (Fosamax) 70 MG tablet TAKE ONE TABLET BY MOUTH ONCE WEEKLY 30 MINUTES BEFORE THE FIRSTFOOD, BEVERAGE, OR MEDICINE OF THE DAY WITH PLAIN WATER 5 tablet 11 ALPRAZolam (Xanax) 1 MG tablet Take 1 mg by mouth as needed at bedtime for sleep. ARIPiprazole (Abilify) 15 MG tablet Take 15 mg by mouth Daily atorvastatin (Lipitor) 80 MG tablet Take 80 mg by mouth in the morning. [] azithromycin (Zithromax Z-Floyd) 250 MG tablet Take 1 tablet (250 mg) by mouth Daily for 5 days Use as directed 6 tablet 0 benzonatate (Tessalon) 100 MG capsule Take 100 mg by mouth 3 (three) times a day as needed for cough calcium carbonate 1500 (600 Ca) MG tablet TAKE ONE TABLET BY MOUTH TWICE A DAY 60 tablet 11 carvedilol (Coreg) 25 MG tablet Take 25 mg by mouth in the morning and 25 mg before bedtime. cetirizine (ZyrTEC) 10 MG tablet Take 10 mg by mouth in the morning. clomiPRAMINE (Anafranil) 50 MG capsule Take 50 mg by mouth 1 (one) time each day at the same time. Continuous Glucose Transmitter (Dexcom G6 transmitter) misc 1 UNIT BY MISCELLANEOUS ROUTE EVERY 3 (THREE) MONTHS. dicyclomine (Bentyl) 20 MG tablet TAKE 1 TABLET BY MOUTH EVERY 6 TO 8 HOURS NEEDED FOR CRAMPS dilTIAZem CD (Cardizem CD) 120 MG 24 hr capsule Take 120 mg by mouth Daily ergocalciferol (Vitamin D2) 1.25 MG (70083 UT) capsule Take 1 capsule by mouth 1 (one) time per week. fremanezumab (Ajovy) 225 MG/1.5ML auto-injector Inject 1 pen (225 mg) under the skin every 30 (thirty) days 3 each 3 furosemide (Lasix) 20 MG tablet Take 20 mg by mouth in the morning. glycopyrrolate (Robinul) 2 MG tablet TAKE 1 TABLET (2 MG) BY MOUTH AT BEDTIME lidocaine (Lidoderm) 5 % patch PLACE 1 PATCH ON THE SKIN DAILY. REMOVE & DISCARD PATCH WITHIN 12 HOURS OR DIRECTED BY loperamide (Imodium) 2 MG capsule TAKE 2 CAPSULES BY MOUTH AFTER 1ST LOOSE STOOL AND 1 CAPSULE AFTER EACH NEXT BOWEL MOVEMENT; DO NOT EXCEED 16MG (8 CAPSULES) IN 24 HOURS meclizine (Antivert) 25 MG tablet Take 25 mg by mouth 3 (three) times a day as needed. metFORMIN (Glucophage) 500 MG tablet Take 500 mg by mouth in the morning. Take with meals. montelukast (Singulair) 10 MG tablet Take 10 mg by mouth in the evening. nortriptyline (Pamelor) 25 MG capsule Take 25 mg by mouth in the morning and 25 mg at noon and 25 mg in the evening and 25 mg before bedtime. Nurtec [address] 75 mg under the tongue nystatin (Mycostatin) 743450 UNIT/ML suspension TAKE 5ML BY MOUTH FOUR TIMES A DAY (MORNING, NOON, EVENING, BEDTIME) FOR 5 DAYS. nystatin (Mycostatin) cream APPLY TO AFFECTED AREA VIA TOPICAL ROUTE TWICE A DAY omeprazole (PriLOSEC) [address] capsule Take 1 capsule every day by oral route. ondansetron (Zofran) 4 MG tablet TAKE 1 TABLET BY MOUTH EVERY 12 HOURS FOR 10 DAYS NEEDED FOR NAUSEA AND VOMITING solifenacin (VESIcare) 10 MG tablet Take 10 mg by mouth Daily [] Thiamine Mononitrate 100 MG tablet TAKE 1 TABLET BY MOUTH IN THE MORNING AND IN THE EVENING 60 tablet 11 Ventolin HFA 108 (90 Base) MCG/ACT inhaler Inhale 1 puff in the morning and 1 puff in the evening and 1 puff before bedtime. [DISCONTINUED] oxyCODONE-acetaminophen (Percocet) 10-325 MG tablet Take 1 tablet by mouth every 6 (six) hours if needed for severe pain for up to 5 days 15 tablet 0 [DISCONTINUED] pilocarpine (Salagen) 5 MG tablet Take 5 mg by mouth in the morning and 5 mg in the evening and 5 mg before bedtime. No current facility-administered medications on file prior to visit. MEDICAL HISTORY: Past Medical History: Diagnosis Date Asthma ([facility]) Bipolar disorder ([facility]) Bunion COPD (chronic obstructive pulmonary disease) ([facility]) Depression ([facility]) Diabetes ([facility]) Fallen arches Fibromyalgia GERD (gastroesophageal reflux disease) Hammer toe Hypertension ([facility]) Kidney stones NV (myocardial infarction) ([facility]) Migraine ([facility]) Mitral valve prolapse Downey's neuroma Onychomycosis Osteoarthritis Oxygen dependent Plantar fasciitis Sleep apnea SVT (supraventricular tachycardia) ([facility]) Tinea pedis ALLERGIES: Allergies Allergen Reactions Codeine Hives and Rash [...] palpitations Ziprasidone Hcl Hives and Palpitations palpitations Aloe Facial numbness/tongue numbness Amitriptyline Other Reaction(s): Abnormal Behavior, Mental Status Change, other, Vomiting hallucinate Hillrose Saline Nasal Gel [Aloe-Sodium Chloride] Facial numbness/tongue [...] other Ziprasidone Palpitations Other Reaction(s): other, Unknown VITALS: Visit Vitals Smoking Status Every Day PHYSICAL EXAM: Ortho Exam LEFT KNEE Medial joint line tenderness Crepitus Skin intact Painful ROM ROM 0-115 IMAGING: I reviewed x-rays of the left knee dated January 31, 2024 from [facility]. There is medial compartmentcollapse with subchondral sclerosis. There are no fractures detected. I reviewed an MRI of the left knee dated March 27, 2024 from [facility]. There is complete loss of the articular cartilage in the medial compartment with [id number]. There is an extruded torn medial meniscus with associated subchondral cyst. There is a discoid lateral meniscus. Fissuring of the ar ticular surface of the patella is noted. ASSESSMENT: ICD-10-CM 1. Chronic pain of left knee M25.562 G89.29 2. Primary osteoarthritis of left knee M17.12 Ambulatory referral to Pain Medicine 3. Complex tear of medial meniscus of left knee as current injury, initial encounter S83.232A PLAN: I explained the diagnosis and reviewed treatment options including injections, pain management, total knee replacement. I discussed risks/benefits of each and chances for success/ failure. Discussionincluded but was not limited to the risk of infection, blood clot, failure to improve and need for additional surgery. I answered all of the patient's questions. She is a high risk candidate for joint replacement. I recommend referral to pain management E/T LT knee pain consider genicular blocks. Follow up as needed. Dr. Alcantara obtained history and examined the patient, I am acting as scribe for Dr. Alcantara/barbie Alcantara D.O. documented in this encounterSoutheast Missouri [id number] History of Present illness Narrative* Pastora Alcantara DO - 04/14/2024 1:00 PM EDT Images from the original note were not included. HISTORY OF PRESENT ILLNESS: Rock Herrera is an 53 y.o. @ female. Chief complaint LT knee pain LT Elbow/ LT Wrist. Saw Ros 04/13. Here to discuss options Pain since 2020 in the LT elbow and writs. Denies injury. She had previous surgery on this elbow ? By Dr. Romeo (orthopedic) ulnar nerve. She notes she had relief from the surgery with no numbness/tingling. She notes the numbness gradually returned. She notes there is constant pain and numbness since 2022, The thumb, MF, RF and LF and travels intothe hand and up the medial arm. Not able to shake it off. Admits waking at HS. Pain at rest 6/10 with activities 10/10, she is taking percocet From Dr Arango s/p foot surgery. She notes she is dropping things often. Denies using a brace, ice, heat, topical ointments.She did have therapy on the elbow (February and March 2024) at [facility] O.T. with no improvement, she notes it made her hand and elbow weaker. She notes she was scheduled for surgery this year on the elbow at [facility] but it got cancelled due to not having therapy, [place]: EMG done at Dr. Vince Sanchez on 03/13/23, LT elbow mri [facility] 01/27/24, , [facility] (February-Mar 2024) LT Knee: here to discuss options per Ros She sees a cloth bleaching range operator chief and tunnel miner. A1c 5.9 on 02/27/24. +Tobacco user. She is RT handed. LT knee pain x about 7 months (2023). She has had issues prior to this. She had a knee scope Dr. Serrano without relief. Denies recent injury. Pain is medial and posterior. Pain at rest 8/10 with activities 10+/10. She is not taking anything currently. Intermittent swelling based off of activities. Intermittent catching and locking.Intermittent give way sensation. Uses a walker prn. Has tried TYL without relief.Using heat with some relief at times. She tried wearing a brace, she got this from [facility] orthopedics. Had 2 steroid injections from [facility] in the past few months without relief. She was advised to quit smoking by [facility]. She was approved for the gel injections but had them on the right and opted to not have them done on the left. Has tried voltaren gel without relief. Went to [facility] ER on 01/31/24 and had xrays of the LT knee and was prescribed lidocaine patches (without relief). She then had an MRI of the LT knee done on 03/27/24. [place]: ER/XR 01/31/24 [facility], MRI/03/27/24/[place], Dr. Serrano knee arthroscopy (unsure of the year), TYL, heat, [facility] orthopedics steroid injections spring 2023, lidocaine patches, walker, voltaren gel MEDICATION: Current Outpatient Medications on File Prior to Visit Medication Sig Dispense Refill ARIPiprazole (Abilify) 15 MG tablet Take 15 mg by mouth Daily glycopyrrolate (Robinul) 2 MG tablet TAKE 1 TABLET (2 MG) BY MOUTH AT BEDTIME albuterol (2.5 MG/3ML) 0.083% nebulizer solution Take 2.5 mg by nebulization every 6 (six) hours. Alcohol Swabs (Global Alcohol Prep Ease) 70 % pads APPLY 1 PAD TOPICALLY EVERY 14 (FOURTEEN) DAYS. alendronate (Fosamax) 70 MG tablet TAKE ONE TABLET BY MOUTH ONCE WEEKLY 30 MINUTES BEFORE THE FIRSTFOOD, BEVERAGE, OR MEDICINE OF THE DAY WITH PLAIN WATER 5 tablet 11 ALPRAZolam (Xanax) 1 MG tablet Take 1 mg by mouth as needed at bedtime for sleep. atorvastatin (Lipitor) 80 MG tablet Take 80 mg by mouth in the morning. azithromycin (Zithromax Z-Floyd) 250 MG tablet Take 1 tablet (250 mg) by mouth Daily for 5 days Use as directed 6 tablet 0 benzonatate (Tessalon) 100 MG capsule Take 100 mg by mouth 3 (three) times a day as needed for cough [] budesonide-formoterol (Symbicort) 160-4.5 MCG/ACT inhaler Daily at bedtime calcium carbonate 1500 (600 Ca) MG tablet TAKE ONE TABLET BY MOUTH TWICE A DAY 60 tablet 11 carvedilol (Coreg) 25 MG tablet Take 25 mg by mouth in the morning and 25 mg before bedtime. cetirizine (ZyrTEC) 10 MG tablet Take 10 mg by mouth in the morning. clomiPRAMINE (Anafranil) 50 MG capsule Take 50 mg by mouth 1 (one) time each day at the same time. Continuous Glucose Transmitter (Dexcom G6 transmitter) misc 1 UNIT BY MISCELLANEOUS ROUTE EVERY 3 (THREE) MONTHS. dicyclomine (Bentyl) 20 MG tablet TAKE 1 TABLET BY MOUTH EVERY 6 TO 8 HOURS NEEDED FOR CRAMPS dilTIAZem CD (Cardizem CD) 120 MG 24 hr capsule Take 120 mg by mouth Daily ergocalciferol (Vitamin D2) 1.25 MG (77760 UT) capsule Take 1 capsule by mouth 1 (one) time per week. fremanezumab (Ajovy) 225 MG/1.5ML auto-injector Inject 1 pen (225 mg) under the skin every 30 (thirty) days 3 each 3 furosemide (Lasix) 20 MG tablet Take 20 mg by mouth in the morning. lidocaine (Lidoderm) 5 % patch PLACE 1 PATCH ON THE SKIN DAILY. REMOVE & DISCARD PATCH WITHIN 12 HOURS OR DIRECTED BY loperamide (Imodium) 2 MG capsule TAKE 2 CAPSULES BY MOUTH AFTER 1ST LOOSE STOOL AND 1 CAPSULE AFTER EACH NEXT BOWEL MOVEMENT; DO NOT EXCEED 16MG (8 CAPSULES) IN 24 HOURS meclizine (Antivert) 25 MG tablet Take 25 mg by mouth 3 (three) times a day as needed. metFORMIN (Glucophage) 500 MG tablet Take 500 mg by mouth in the morning. Take with meals. montelukast (Singulair) 10 MG tablet Take 10 mg by mouth in the evening. nortriptyline (Pamelor) 25 MG capsule Take 25 mg by mouth in the morning and 25 mg at noon and 25 mg in the evening and 25 mg before bedtime. Nurtec [address] 75 mg under the tongue nystatin (Mycostatin) [id number] UNIT/ML suspension TAKE 5ML BY MOUTH FOUR TIMES A DAY (MORNING, NOON, EVENING, BEDTIME) FOR 5 DAYS. nystatin (Mycostatin) cream APPLY TO AFFECTED AREA VIA TOPICAL ROUTE TWICE A DAY omeprazole (PriLOSEC) [address] capsule Take 1 capsule every day by oral route. ondansetron (Zofran) 4 MG tablet TAKE 1 TABLET BY MOUTH EVERY 12 HOURS FOR 10 DAYS NEEDED FOR NAUSEA AND VOMITING oxyCODONE-acetaminophen (Percocet) 10-325 MG tablet Take 1 tablet by mouth every 6 (six) hours if needed for severe pain for up to 5 days 15 tablet 0 pilocarpine (Salagen) 5 MG tablet Take 5 mg by mouth in the morning and 5 mg in the evening and 5 mg before bedtime. solifenacin (VESIcare) 10 MG tablet Take 10 mg by mouth Daily Thiamine Mononitrate 100 MG tablet TAKE 1 TABLET BY MOUTH IN THE MORNING AND IN THE EVENING 60 tablet 11 Ventolin HFA 108 (90 Base) MCG/ACT inhaler Inhale 1 puff in the morning and 1 puff in the evening and 1 puff before bedtime. [DISCONTINUED] ARIPiprazole (Abilify) 20 MG tablet Take 15 mg by mouth in the morning. [DISCONTINUED] azithromycin (Zithromax Z-Floyd) 250 MG tablet Take 1 tablet (250 mg) by mouth Daily for 5 days Use as directed 6 tablet 0 [DISCONTINUED] baclofen (Lioresal) 5 MG tablet [DISCONTINUED] Cellulose powder [DISCONTINUED] chlorzoxazone (Parafon Forte) 500 MG tablet Take 500 mg by mouth 4 (four) times a day as needed for muscle spasms [DISCONTINUED] cholestyramine (Questran) 4 GM/DOSE powder TAKE 9 G OF BULK POWDER (4 G TOTAL) BY MOUTH IN THE MORNING AND 9 G OF BULK POWDER (4 G TOTAL) IN THE EVENING. TAKE WITH MEALS. [DISCONTINUED] Continuous Blood Gluc Pbx Repairer (Dexcom G6 overage shortage and damage clerk) device 1 UNIT YEARLY [DISCONTINUED] Continuous Blood Gluc Sensor (Dexcom G6 Sensor) [facility] [place] USE 1 UNIT DIRECTED AND CHANGE EVERY 10 DAYS [DISCONTINUED] diazePAM (Valium) 2 MG tablet TAKE 1 TABLET BY MOUTH 2 HOURS PRIOR TO PROCEDURE. NO DRIVING. [DISCONTINUED] diazePAM (Valium) 5 MG tablet TAKE ONE TABLET BY MOUTH ONE HOUR PRIOR TO PROCEDURE -NO DRIVING [DISCONTINUED] Ferrous Sulfate (IRON PO) Take 1 tablet by mouth in the morning. [DISCONTINUED] glycopyrrolate (Robinul) 1 MG tablet Take 2 mg by mouth at bedtime [DISCONTINUED] glycopyrrolate (Robinul) 2 MG tablet Take 1 tablet (2 mg) by mouth at bedtime 30 tablet 3 [DISCONTINUED] hydrOXYzine HCl (Atarax) 25 MG tablet TAKE 1 TABLET (25 MG TOTAL) BY MOUTH 2 (TWO) TIMES A DAY NEEDED FOR ANXIETY. [DISCONTINUED] nabumetone (Relafen) 750 MG tablet TAKE 1 TABLET (750 MG TOTAL) BY MOUTH 2 (TWO) TIMES A DAY NEEDED FOR PAIN. [DISCONTINUED] nystatin-triamcinolone (Mycolog II) cream APPLY 1 APPLICATION TOPICALLY IN THE MORNING AND 1 APPLICATION AT NOON AND 1 APPLICATION IN THE EVENING AND 1 APPLICATION BEFORE BEDTIME. [DISCONTINUED] ondansetron ODT (Zofran-ODT) 4 MG disintegrating tablet DISSOLVE 1 TABLET (4 MG TOTAL) ON TONGUE EVERY 8 (EIGHT) HOURS NEEDED FOR NAUSEA OR VOMITING. [DISCONTINUED] oxyCODONE-acetaminophen (Percocet) 10-325 MG tablet Take 1 tablet by mouth every 6 (six) hours if needed for severe pain for up to 5 days 15 tablet 0 [DISCONTINUED] prednisoLONE acetate (Pred-Forte) 1 % ophthalmic suspension INSTILL 1 DROP INTO TO RIGHT EYE FOUR TIMES A DAY FOR 7 DAYS, NEXT THREE TIMES A DAY FOR 7 DAYS, AND THEN TWICE A DAY FOR 7 DAYS [DISCONTINUED] predniSONE (Deltasone) 10 MG tablet TAKE THREE TABLETS BY MOUTH DAILY FOR 3 DAYS, THEN TWO TABLETS FOR 3 DAYS, THEN ONE TABLET BY MOUTH FOR 3 DAYS No current facility-administered medications on file prior to visit. MEDICAL HISTORY: Past Medical History: Diagnosis Date Asthma ([facility]) Bipolar disorder ([facility]) Bunion COPD (chronic obstructive pulmonary disease) ([facility]) Depression ([facility]) Diabetes ([facility]) Fallen arches Fibromyalgia GERD (gastroesophageal reflux disease) Hammer toe Hypertension ([facility]) Kidney stones NV (myocardial infarction) ([facility]) Migraine ([facility]) Mitral valve prolapse Downey's neuroma Onychomycosis Osteoarthritis Oxygen dependent Plantar fasciitis Sleep apnea SVT (supraventricular tachycardia) ([facility]) Tinea pedis ALLERGIES: Allergies Allergen Reactions Codeine Hives and Rash [...] palpitations Ziprasidone Hcl Hives and Palpitations palpitations Aloe Facial numbness/tongue numbness Amitriptyline Other Reaction(s): Abnormal Behavior, Mental Status Change, other, Vomiting hallucinate Hillrose Saline Nasal Gel [Aloe-Sodium Chloride] Facial numbness/tongue [...] other Ziprasidone Palpitations Other Reaction(s): other, Unknown VITALS: Visit Vitals Smoking Status Every Day PHYSICAL EXAM: Ortho Exam B/L UE Scars B/L elbows Ulnar nerve palpated anterior to medial epicondyle bilaterally consistent with previous ulnar nervetransposition. There is tenderness over the ulnar nerve has a sits outside of the cubital tunnel. There is no tenderness at the cubital tunnel. There is no interosseous wasting or atrophy. There is decreased sensation bilateral upper extremities involving the thumb, entire middle finger entire ring finger entire little finger. Positive Tinels at the wrist IMAGING: I reviewed an EMG dated April 25, 2023 from Carlos Sanchez which revealed evidence of bilateral L5 radiculopathies. I also reviewed an EMG of the upper extremities dated March 13, 2023 there was evidence of cubital tunnel syndrome ASSESSMENT: ICD-10-CM 1. Left wrist pain M25.532 2. Left knee pain, unspecified chronicity M25.562 3. Ulnar neuropathy at elbow of left upper extremity G56.22 PLAN: I explained the diagnosis and reviewed treatment options. I answered all of the patient's questions. This patient has recurrent symptoms of ulnar neuropathy and a history of prior ulnar nerve transposition/decompression. At this point I do not know what else to offer her. I have suggested that we get a 2nd opinion. I recommend refer to UE specialist. Follow up as needed, any issues/concerns follow up sooner. Dr. Alcantara obtained history and examined the patient, I am acting as scribe for Dr. Alcantara/barbie Alcantara D.O. documented in this encounterSoutheast Missouri [id number] History of Present illness Narrative* Cj Zepeda NP - 04/13/2024 12:00 PM EDT Subjective Patient ID: Rock Herrera is a 53 y.o. female. LT Elbow/ LT Wrist Pain since 2020. Denies injury. She had previous surgery on this elbow ? By Dr. Romeo (orthopedic) ulnar nerve. She notes she had relief from the surgery with no numbness/tingling. She notes the numbness gradually returned. She notes there is constant numbness since 2022, The thumb, MF, RF and LF and travels into the handand up the medial arm. Pain at rest 6/10 with activities 10/10, she is taking percocet for something else from dr. Arango for recent nail removal of 5 toes. She notes she is dropping things all of the time. Denies using a brace, ice, heat, topical ointments. She did have therapy on the elbow (February and March 2024) at [facility] O[facility]T. with no improvement, she notes it made her hand and elbow weaker. She notes she was schedule for surgery but it got cancelled since she did not have therapy, she wasgoing to have surgery done at [facility]. [place]: EMG done at Dr. Vince Sanchez on 03/13/23, LT elbow mri [facility] 01/27/24, , [facility] (February-Mar 2024) Objective Left Hand Exam Muscle Strength Management Advisor: 4-/5 Left Elbow Exam Tests Tinel's sign (cubital tunnel): positive Elbow Musculoskeletal Exam Inspection Left Ecchymosis: none Swelling: none Deformity: none Palpation Left Tenderness: present Ulnar nerve: moderate Range of Motion Left Active Extension: 0 Active Pronation: 90 Passive Pronation: 90 Active Supination: 90 Passive Supination: 90 Strength Left Finger abduction: 4-/5. Management Advisor strength: 4-/5. Neurovascular Left Radial pulse: normal Capillary refill: <3 sec Ulnar nerve sensory distribution: decreased Special Tests Left Neurological Signs Tinel's - cubital tunnel: positive Positive phalens in the wrist causes thumb, IF and RF to become increasingly numb. I reviewed the EMG done on 03/13/[address] Sanchez office reveals moderate ulnar nerve compression B/L UE. MRI of the left elbow done at [facility] on 01/27/24 is unremarkable for fracture and unremarkable. Assessment/Plan Encounter Diagnoses: ICD-10-CM 1. Left elbow pain M25.522 2. Left wrist pain M25.532 3. Ulnar neuropathy at elbow of left upper extremity G56.22 4. Carpal tunnel syndrome of left wrist G56.02 Discussion of options, she notes she is leaning towards surgery and would like surgery on the elbow/wrist prior to the knee, will have her f/U with dr. Alcantara to discuss options. documented in this encounterSoutheast Missouri [id number] History of Present illness Narrative* Martin Arango, SALLIE - 04/09/2024 10:30 AM EDT Patient: Rock Herrera : 1970 PCP: Robert Giron MD SUBJECTIVE This is a 53 y.o. female that presents today with past hx of right gisele bunionectomy with right midfoot exostectomy and plantar fasciotomy Pt denies n/f/v/c and has minimal pain to post op site. Patient also presents today for follow-up of EDL tendinitis to right foot and has not been using Voltaren gel with negative relief and rates pain a /10. Pt is dm2 Patient also presents today for elongated thick yellow crumbly nails to left 345 digits and right 2nd and 4th for right digits. She states she would like permanent nail avulsion in the near future and presents today with toe pain with ambulation in shoe gear Allergies: Allergies Allergen Reactions Codeine Hives and [...] Behavior, Mental Status Change, other, Vomiting hallucinate Hillrose Saline Nasal Gel [Aloe-Sodium Chloride] Facial numbness/tongue [...] History: Past Medical History: Diagnosis Date Asthma ([facility]) Bipolar disorder ([facility]) Bunion COPD (chronic obstructive pulmonary disease) ([facility] Depression ([facility]) Diabetes ([facility]) Difficulty walking Fallen arches Fibromyalgia Hammer toe Kidney stones Migraine ([facility]) Mitral valve prolapse Downey's neuroma [...] time., Disp: , Rfl: Continuous Blood Gluc Pbx Repairer (Dexcom G6 overage shortage and damage clerk) device, 1 UNIT YEARLY, Disp: , Rfl: Continuous Blood Gluc Sensor (Dexcom G6 Sensor) [facility] [place], USE 1 UNIT DIRECTED AND CHANGE EVERY 10 DAYS, Disp: , Rfl: ergocalciferol (Vitamin D2) 1.25 MG (70841 UT) capsule, Take 1 capsule by mouth [...] oral route., Disp: , Rfl: nystatin (Mycostatin) 057714 UNIT/ML suspension, TAKE 5ML FOUR TIMES A [...] tablet by mouth every 8 (eight) hours ifneeded for severe pain for up to 5 [...] with anti-inflammatory medication OBJECTIVE LE EXAM: Derm: Elongated thick yellow crumbly nails digits 1 through 5 with slight erythema to nail borders with negative drainage. Diminished hair growth bilateral Vascular: Palpable pedal pulses to bilateral feet Neuro: 5.07 Mason Gina monofilament test positive to digits and forefoot bilaterally 125Hz tuning fork positive to 1st MPJ bilaterally Musculoskeletal: Positive pain on palpation nails 1 through 5 Ortho: Ankle range of motion less than 10 degrees of dorsiflexion at right ankle joint. positive pain on palpation to right EDL tendon complex ASSESSMENT 1. Onychocryptosis 2. Toe pain, left 3. Toe pain, right 4. Capsulitis of metatarsophalangeal (MTP) joint of right foot PLAN Perfomed TPN avulsion to the right and left toenails 1 through 5 digits Informed pt of risks/ benefits of procedure including infection,reoccurance,pain, bleeding. Pt consents. 3cc of xylocaine 2% plain injected into the affected digit and tournicut applied to affected digit for 3 minutes. The affected toe was prepped/draped in a sterile manner and the offending nail border removed and 3phenol applications of 30 seconds a peice to nail matrix. Alcohol flush applied and tournicut released with prompt hyperemic response. Patient was given a prescription for an antibiotic Patient instructed to apply Voltaren gel to the region of her affected right foot as well as can tinea with Tylenol or other anti-inflammatories Martin Arango DPM documented in this encounterSoutheast Missouri [id number] History of Present illness Narrative* Cj Zepeda, JEREMIAH - 04/08/2024 12:30 PM EDT Subjective Patient ID: Rock Herrera is a 53 y.o. female. LT Knee *Robert Giron Referral She sees a cloth bleaching range operator chief and tunnel miner LT knee pain x about 7 months (2023). She has had issues prior to this. She had a knee scope Dr. Serrano without relief. Denies injury. Pain is medial and posterior. Pain at rest 8/10 with activities 10+/10. She is not taking anything currently. Has tried TYL without relief. Using heat with some relief at times. She is no longer wearing a brace, she got this from [facility] from [facility] orthopedics. [facility] orthopedics and had 2 steroid injections in the past few months without relief. She notes she needed to stop smoking otherwise they would not be able to help her at [facility]. She was approved for the gel injections but had them on the right and opted to not have them done on the left. Has tried voltarengel without relief. Went to [facility] ER on 01/31/24 and had xrays of the LT knee and was prescribed lidocaine patches (without relief). She then had an MRI of the LT knee done on 03/27/24. Intermittent swelling based off of activities. Intermittent catching and locking. Intermittent give way sensation. If the pain is bad enough she will use a walker. TX: ER/XR 01/31/24 [facility], MRI/03/27/24/[place], Dr. Serrano knee arthroscopy unsure of the year prior to him retiring, TYL, heat, [facility] orthopedics steroid injections spring 2023, lidocaine patches, walker, voltaren gel LT elbow Numbness and tingling TX: previous ulnar nerve decompression Objective Left Knee Exam Tests Bart: Medial - positive Knee Musculoskeletal Exam Inspection Left Erythema: none Effusion: none Edema: none Ecchymosis: none Palpation Left Crepitus: patellofemoral Tenderness: present Medial joint line: moderate Range of Motion Left Active extension: 0 Active flexion: 115 Strength Left Extension: 4-/5. Extension is affected by pain. Flexion: 4-/5. Flexion is affected by pain. Instability Left Varus stress grade: normal Valgus stress grade: normal Medial Bart test: positive I reviewed the er note from 01/31/24 [facility], had xrays done. MRI LT knee [facility] dated 03/31/24 reveals advanced arthritic change in the medial compartment of the left knee along with extruded tear of the medial meniscus. This is mkth-sp-qkiu with subchondralcyst. there is also an incidental finding of a discoid lateral meniscus, there is also fissuring inthe articular surface of the undersurface of the patella. Assessment/Plan Encounter Diagnoses: ICD-10-CM 1. Left knee pain, unspecified chronicity M25.562 2. Arthritis of left knee M17.12 Ambulatory referral to Physical Therapy Discussion of options, will send to prehab, she is thinking she wants surgery, will have her f/U with dr. Alcantara to discuss surgical intervention, documented in this encounterSoutheast Missouri [id number] NoteConsultation Note Patient is presenting with a longstanding [...] has iterated in the past and she isprimarily interested in opioid-based therapy. We discussed that [...] and treatment, all questions were answered and patientagrees to adhere to the plan above. Risk [...] call with any questions or concerns that arise.[facility] CenterComment on above:Result Comment: Electronically Signed By: Andrew Eid DO\.br\Date and Time Signed: 03/05/24 15:55 [id number] Evaluation + Plan noteExtracted from: Title:chronic pain Author:Andrew Eid DO. Date:03/05/24 [...] Date:07/30/2024 01:45:00 PM Scheduled Provider:Kehinde Davalos MD [facility] Type:Cardiology Follow Up () Appointment Date:01/05/2025 01:00:00 PM Scheduled Provider:POLLY MARIANO PA-C Location:[facility] Appointment Type:URO Office Visit Future Scheduled Tests Radiology* Echo Transthoracic Complete 05/20/23 [facility]05-29-2024 Evaluation + Plan noteExtracted from: Title:Pain [...] Appointments Appointment Date:01/30/2024 02:15:00 PM Scheduled Provider:En Carmne PA-C [facility] Type:Cardiology Follow Up (FT) Appointment Date:03/05/2024 03:30:00 PM Scheduled Provider:Andrew Eid DO Location:[facility] Appointment Type:Pain Management - Follow Up (FT) Appointment Date:01/05/2025 01:00:00 PM Scheduled Provider:POLLY MARIANO PA-C Location:[facility] Appointment Type:URO Office Visit Future Scheduled Tests Laboratory* Pancreatic Elastase, Fecal 01/29/23 * Fecal WBC Lactoferrin 01/29/23 * Giardia lamblia, Direct Detection EIA 01/29/23 * O & P Exam, Routine 01/29/23 * Clostridium Difficile PCR 01/29/23 * Enteric Panel by PCR 01/29/23 Radiology* Echo Transthoracic Complete 05/20/23 [facility]05-15-2024 Evaluation + Plan noteExtracted from: Title:Pain [...] Date:01/30/2024 02:15:00 PM Scheduled Provider:En Carmen PA-C [facility] Type:Cardiology Follow Up (FT) Appointment Date:02/26/2024 11:15:00 AM Scheduled Provider:Andrew Eid DO Location:[facility] Appointment Type:Pain Management - Follow Up (FT) Appointment Date:01/05/2025 01:00:00 PM Scheduled Provider:POLLY MARIANO PA-C Location:[facility] Appointment Type:URO Office Visit Future Scheduled Tests Laboratory* Pancreatic Elastase, Fecal 01/29/23 * Fecal WBC Lactoferrin 01/29/23 * Giardia lamblia, Direct Detection EIA 01/29/23 * O & P Exam, Routine 01/29/23 * Clostridium Difficile PCR 01/29/23 * Enteric Panel by PCR 01/29/23 Radiology* Echo Transthoracic Complete 05/20/23 [facility]05-14-2024 Hospital Discharge instructions Patient Education 12/31/2023 [...] nerve stimulation). ?For women, using a medical orderly to prevent urine leaks. This is a [...] right after experiencing incontinence. General instructions Take bbup-oiy-ncqcnwi and prescription medicines only as told by [...] important. Where to find more information National [place] of Diabetes and Digestive and Kidney Diseases: www.niddk.nih.gov [place] [employer]: www.urologyhealth.org Contact a health care [...] provider. Document Revised: 03/10/2021 Document Reviewed: 03/10/2021 Associated Content Patient Education 2022 [email or web address]. Follow Up Care 09/17/2023 08:57:54 With:POLLY MARIANO PA-C, URL Address: [address] [place] [place] [address] When: Unknown [facility] 04-24-2024 Note [id number]2023 NoteDiagnosis: M54.16, lumbar radiculopathy Procedure: [...] the epidural space was confirmed using the xwyu-mi-yrlmgwzcfz technique and 2 cc of air. Injection [...] procedure, and agrees to continue currently prescribed/recommended therapies.[facility] Comment on above:Result Comment: Electronically Signed By: Andrew Eid DO\.br\Date and Time Signed: 12/11/23 09:29 [id number] Evaluation + Plan note Extracted from: Title:L4/5 [...] the epidural space was confirmed using the wkrr-fr-hfrlfeqyyj technique and 2 cc of air. Injection [...] Date:12/31/2023 01:00:00 PM Scheduled Provider:POLLY MARIANO PA-C Location:[facility] Appointment Type:URO Office Visit Appointment Date:01/01/2024 11:00:00 AM Scheduled Provider:Cady Alva PA-C Location:[facility] Appointment Type:Pain Management - Follow Up (FT) Future Scheduled Tests Laboratory* Pancreatic Elastase, Fecal 01/29/23 * Fecal WBC Lactoferrin 01/29/23 * Giardia lamblia, Direct Detection EIA 01/29/23 * O & P Exam, Routine 01/29/23 * Clostridium Difficile PCR 01/29/23 * Enteric Panel by PCR 01/29/23 * CBC w/ Auto Diff 12/25/22 * Comprehensive Metabolic Panel 12/25/22 Radiology* Echo Transthoracic Complete 05/20/23 [facility]03-20-2024 Evaluation + Plan noteExtracted from: Title:Pain [...] Date:12/31/2023 01:00:00 PM Scheduled Provider:POLLY MARIANO PA-C Location:[facility] Appointment Type:URO Office Visit Future Scheduled Tests Laboratory* Pancreatic Elastase, Fecal 01/29/23 * Fecal WBC Lactoferrin 01/29/23 * Giardia lamblia, Direct Detection EIA 01/29/23 * O & P Exam, Routine 01/29/23 * Clostridium Difficile PCR 01/29/23 * Enteric Panel by PCR 01/29/23 * CBC w/ Auto Diff 12/25/22 * Comprehensive Metabolic Panel 12/25/22 Radiology* Echo Transthoracic Complete 05/20/23 [facility]03-15-2024 History of Present illness Narrative* SUN Humhpries - 11/01/2023 12:30 PM EDT The OARRS/MAPPS database was reviewed today and found to be appropriate. No indication of medication diversion, or non compliance. SUN Humphries 11/01/23 1231 documented in this encounterC[facility]02-[facility] History of Present illness Narrative* Robert Giron, - 10/03/2023 3:40 PM EST Subjective Patient ID: Rock Herrera is a 53 y.o. female. Earline [...] her bunion and it is affecting her cailin lity of life. She quit smoking about 6 months ago and has maintain smoking cessation. She has not had any recent illness. She does not have a sore throat, fever cough or diarrhea. She is a diabetic and her last A1c was 6.5%. She saw her cloth bleaching range operator chief who medically cleared her. She had a heart catheterization in 2019 which showed normal coronary arteries. [...] ear normal. Nose: Nose normal. Mouth/Throat: Lips: [place]. Mouth: Mucous membranes are moist. Pharynx: Oropharynx [...] Thought content normal. Judgment: Judgment normal. Assessment/Plan Rock was seen today for pre-op exam. Diagnoses [...] cardiac workup is indicated. She is medically c leared for surgery. Hallux valgus of right foot Follow-up with chemical compounder for surgery. Essential hypertension Blood pressure at goal. Take medications with a sip of water in the morning. Diabetic peripheral neuropathy (CMS-HCC) At goal. documented in this encounterCleveland Clinic Avon Hospital02-09-2024 Miscellaneous Notes* Telephone Encounter - Anjelica Rutledge - 09/27/2023 8:08 AM EST Patient left message requesting if she can get refill of Tramadol. Please advise. [phone] documented in this encounterSoutheast Missouri HospitalYcvozuceoe34-79-1411 Telephone encounter Note* Telephone Encounter - Anjelica Rutledge - 09/27/2023 8:08 AM EST Patient left message requesting if she can get refill of Tramadol. Please advise. [phone] [facility] [id number] History of Present illness Narrative* Martin Arango DPM - 09/26/2023 3:10 PM EST Patient: Rock Herrera : 1970 PCP: Robert Giron MD [...] have failed. Patient be scheduled for right Gisele bunionectomy with revisional right plantar fasciotomy and [...] Behavior, Mental Status Change, other, Vomiting hallucinate Hillrose Saline Nasal Gel [Aloe-Sodium Chloride] Facial numbness/tongue [...] History: Past Medical History: Diagnosis Date Asthma ([facility]) Bipolar disorder ([facility]) Bunion COPD (chronic obstructive pulmonary disease) ([facility]) Depression ([facility] Diabetes ([facility]) Difficulty walking Fallen arches Fibromyalgia Hammer toe Kidney stones Migraine ([facility]) Mitral valve prolapse Downey's neuroma [...] time., Disp: , Rfl: Continuous Blood Gluc Pbx Repairer (Dexcom G6 overage shortage and damage clerk) device, 1 UNIT YEARLY, Disp: , Rfl: Continuous Blood Gluc Sensor (Dexcom G6 Sensor) [facility] [place], USE 1 UNIT DIRECTED AND CHANGE EVERY 10 DAYS, Disp: , Rfl: ergocalciferol (Vitamin D2) 1.25 MG (81135 UT) capsule, Take 1 capsule by mouth [...] within 12 hours or as directed by .., Disp: 60 patch, Rfl: 11 loperamide (Imodium) [...] oral route., Disp: , Rfl: nystatin (Mycostatin) 909195 UNIT/ML suspension, TAKE 5ML FOUR TIMES A [...] breath with positive history of tachycardia seeing cloth bleaching range operator chief for this Pulmonary: Positive history of shortness [...] polyneuropathy, with long-term current use of insulin ([facility]) 4. Contracture of right ankle [...] right HAV repair with screw fixation and Gisele bunionectomy and right plantar fasciotomy. Discussed with the patient the nature of condition and operative vs nonoperative care. The surgicalplans, risks, alternatives, benefits, post op complications and petroleum terminal plant operator expectations were discussed including but not limited to: infection,bone infection,wound dehiscence hardware failure and irritation,wound dehiscence,delay union/mal union/non union of bone. RSDS,neuroma,duty limitations,DVT/PE, NV,nerve damage, scar, loss of sensation, swelling. Pt [...] date and current (date) documented in this encounterSoutheast Missouri [id number] Hospital Discharge instructions Patient Education 09/17/2023 08:52:34 [...] Follow these instructions at home: Medicines Take idpj-yqi-hwhtigm and prescription medicines only as told by [...] or the blood stops without treatment. Take kszk-jjs-rncywue and prescription medicines only as told by your health care provider. Drink enough fluid to keep your urine pale yellow. This information is not intended to replace advice given to you by your health care provider. Make sure you discuss any questions you have with your health care provider. Document Revised: 04/05/2021 Document Reviewed: 04/05/2021 Associated Content Patient Education 2022 [email or web address]. Follow Up Care 06/13/2023 09:13:04 With:POLLY MARIANO PA-C, URL Address: [address] [place] [address] [phone] When: Unknown Comments:3 mos (restart med) [facility] Renetta 01-09-2024 Evaluation note* Encounter Date Diagnosis Assessment Notes Treatment Notes Treatment Clinical Notes Aug, Chronic obstructive pulmonary disease, unspecified (ICD-10 - J44.9) Aug, Tobacco abuse (ICD-1 0 - Z72.0) Stop smoking. Chest CT in 03/2023 showed emphysema, no nodules. Next LDCT screening will be scheduled for 2023. Aug, Diastolic dysfunctio n (ICD-10 - I51.9) Aug, Nicotine dependence, cigarettes, uncomplicated (ICD-10 - F17.210) [facility] Other 07-11-2023 Evaluation note* Encounter Date Diagnosis Assessment Notes [...] Nicotine dependence, cigarettes, uncomplicated (ICD-10 - F17.210) [facility] Other 06-01-2023 Hospital Discharge instructions Patient Education 01/17/2023 09:45:42 Colonoscopy, Care After Surgery Little (CUSTOM) Colonoscopy Care After Surgery Please read the instructions outlined below and refer to this sheet in the next few weeks. These discharge instructions provide you with general information on caring for yourself [facility]. Your doctor may also give you [...] worse throughout the day. 01/17/2023 09:45:38 Hemorrhoids, Tero-gz-Viil Hemorrhoids Hemorrhoids are swollen veins that may [...] 3 times a day. General instructions Take myqc-tgm-gvsujwn and prescription medicines only as told by [...] provider. Document Revised: 02/14/2022 Document Reviewed: 02/14/2022 Associated Content Patient Education 2022 [email or web address]. 01/17/2023 09:45:31 Colon Polyps Colon Polyps Colon [...] hard liquor (44 mL). General instructions Take ihob-aui-jwtqgde and prescription medicines only as told by [...] provider. Document Revised: 11/23/2020 Document Reviewed: 11/23/2020 Associated Content Patient Education 2022 [email or web address]. Follow Up Care 09/14/2022 14:04:03 With:LITTLE WALSH, DHAVAL Poole, [facility] Address: [address] [place] [address]. [address] [place] [address] When: Unknown Comments:Office will call to schedule follow up appointment [facility]04-05-2023 Evaluation + Plan noteExtracted from: Title:Anesthesia Pre-Op Note - LILLY Author:Brody Raza DO Date:11/21/22 Plan [place] [employer] of Anesthesiologists#(ASA) physical status classification: Class III. Anesthetic Preoperative Plan Anesthesia: General. . Anesthetic plan, risks, benefits, and alternatives discussed with the patient and/or family. Risks discussed: nausea, vomiting, headache, sore throat, aspiration, airway. Patient verbalized understanding. Informed consent was given. Consent was signed by the patient. Future Appointments Appointment Date:12/10/2022 02:40:00 PM Scheduled Provider:Inessa Grajeda CNP [facility] Appointment Type:BADH Follow Up Appointment Date:01/17/2023 09:50:00 AM Scheduled Provider: Location:[facility] Appointment Type:Surgery FT Appointment Date:01/30/2023 01:20:00 PM Scheduled Provider:POLLY MARIANO PA-C [facility] [place] Appointment Type:URO Office Visit Future Scheduled Tests Laboratory* Clostridium difficile by PCR 05/09/22 * CBC w/ Auto Diff 05/09/22 * Comprehensive Metabolic Panel 05/09/22 [facility]04-05-2023 Hospital Discharge instructions Patient Education 11/21/2022 11:26:16 Foot Cryocuff Patient Instructions - FT (CUSTOM) 11/21/2022 11:26:16 Post Op Patient Instructions - FT (CUSTOM) 11/21/2022 08:48:42 Harsh - Post Operative Instructions (Revised 07/29/19) (Custom) ([id number]) (Custom) [place], [place] Martin Arango DPM, FACJONATHAN POST OPERATIVE [...] feel free to call the doctor at: [phone] or [phone] Arango paged. Patient signatureDate Dr.Nicholas Harsh DPM, FACFAS Date Revised: 09-26 [facility]03-13-2023 Hospital Discharge instructions Patient Education 10/29/2022 [...] water added (diluted fruit juice). Eat bland, emce-de-vhvebx foods in small amounts as you are able. These foods include bananas, applesauce, rice, lean meats, toast, and crackers. Avoid drinking fluids that contain a lot of sugar or caffeine, such as energy drinks, sports drinks, and soda. Avoid alcohol. Avoid spicy or fatty foods. General instructions Take obes-zxa-gyjnjmp and prescription medicines only as told by your health care provider. Rest at home while you recover. Drink enough fluid to keep your urine pale yellow. Breathe slowly and deeply when you feel nauseous. Avoid smelling things that have strong odors. Wash your hands often using soap and water. If soap and water are not available, use hand court officer. Make sure that all people in your [...] recommendations for eating and drinking and take pjad-xmc-nlxngui and prescription medicinesonly as told by your [...] 09/12/2005 Document Revised: 01/13/2019 Document Reviewed: 01/13/2019 Associated Content Patient Education 2020 [email or web address]. Follow Up Care 10/02/2022 13:26:11 With:Inessa Grajeda CNP Address: When:1 to 2 weeks Comments:Following colonoscopy. [facility] [id number] Hospital Discharge instructions Patient Education 10/20/2022 12:23:03 [...] Treatment for this condition includes: Antibiotic medicine. Aphs-zcm-svcmirk medicines to treat discomfort. Drinking enough water [...] Follow these instructions at home: Medicines Take pnbw-lnv-bgzrejn and prescription medicines only as told by [...] 05/15/2006 Document Revised: 07/23/2019 Document Reviewed: 02/12/2019 Associated Content Patient Education 2020 [email or web address]. 10/20/2022 12:23:03 Antibiotic Medicine, Adult Antibiotic Medicine, [...] 04/17/2005 Document Revised: 02/03/2019 Document Reviewed: 08/06/2017 Associated Content Patient Education [employer]. Follow Up Care 10/20/2022 10:33:51 With:ROBERT GIRON Address: [address] [place], [place] [address] [address] Business (1) When:10/23/2022 12:22:53 Comments:Call [...] you develop any new or worsening symptoms. [facility]03-04-2023 Evaluation + Plan noteExtracted from: Title:ED Note Author:Santos Landry DO Date: Acute UTI (N39.0: Urinary tr act infection, site not specified) Orders: azithromycin, = 1 packet(s), Oral, As Directed, as directed on package labeling, X 5 day(s), # 6 tab(s), Refills(s) 0, Pharmacy: [id number], 163, cm, 10/20/22 10:48:00 EST, Height/Length [...] Appointments Appointment Date:10/23/2022 09:00:00 AM Scheduled Provider: [facility] Appointment Type:US Abdominal/Pelvis (FT) Appointment Date:10/29/2022 02:40:00 PM Scheduled Provider:Inessa Grajeda CNP [place] Appointment Type:BADH Follow Up Appointment Date:10/30/2022 03:00:00 PM Scheduled Provider:Elliott Solis MD [facility] App[facility]ment Type:Cardiology Follow Up (FT) Appointment Date:11/07/2022 02:40:00 PM Scheduled Provider: Location:[facility] Appointment Type:Surgery FT Appointment Date:01/30/2023 01:20:00 PM Scheduled Provider:POLLY MARIANO PA-C [place] [place] Appointment Type:URO Office Visit Diagnostic Tests Pending * Urine Culture 10/20/22 Future Scheduled Tests Laboratory* Clostridium difficile by PCR 05/09/22 * CBC w/ Auto Diff 05/09/22 * Comprehensive Metabolic Panel 05/09/22 Radiology* US Abdomen Complete 10/23/22 [facility]02-24-2023 Hospital Discharge instructions Patient Education 10/12/2022 [...] take to decrease my back pain? Take dlcn-pcr-rvyadux or prescription medicines only as told by [...] and in- person support groups through: The [place] [employer]: https://theacpa.org/Support-Groups The [place]. Pain [...] 08/19/2016 Document Revised: 07/18/2018 Document Reviewed: 04/13/2017 Associated Content Patient Education 2020 [email or web address]. Follow Up Care 10/12/2022 12:55:29 With:ROBERT GIRON Address: [address] [place] [address] [facility] (1) When:10/15/2022 14:38:47 Comments:Call the office of [...] you develop any new or worsening symptoms. [facility]02-24-2023 Evaluation + Plan noteExtracted from: Title:ED [...] Appointments Appointment Date:10/23/2022 09:00:00 AM Scheduled Provider: Location[facility] Appointment Type:US Abdominal/Pelvis (FT) Appointment Date:10/29/2022 02:40:00 PM Scheduled Provider:Inessa Grajeda CNP [place] Appointment Type:BADH Follow Up Appointment Date:10/30/2022 03:00:00 PM Scheduled Provider:Elliott Solis MD [facility] App[facility]ment Type:Cardiology Follow Up (FT) Appointment Date:11/07/2022 02:40:00 PM Scheduled Provider: Location:[facility] Appointment Type:Surgery FT Appointment Date:01/30/2023 01:20:00 PM Scheduled Provider:POLLY MARIANO PA-C [place] [place] Appointment Type:URO Office Visit Future Scheduled Tests Laboratory* Fecal WBC Lactoferrin 05/09/22 * Giardia lamblia, Direct Detection EIA 05/09/22 * O & P Exam, Routine 05/09/22 * Clostridium difficile by PCR 05/09/22 * Enteric Panel by PCR 05/09/22 * CBC w/ Auto Diff 05/09/22 * Comprehensive Metabolic Panel 05/09/22 Radiology* US Abdomen Complete 10/23/22 [facility]02-14-2023 Hospital Discharge instructions Patient Education 10/02/2022 [...] water added (diluted fruit juice). Eat bland, dvdh-tk-ogwzmc foods in small amounts as you are able. These foods include bananas, applesauce, rice, lean meats, toast, and crackers. Avoid fluids that contain a lot of sugar or caffeine, such as energy drinks, sports drinks, and soda. Avoid alcohol. Avoid spicy or fatty foods. General instructions Take ppwj-daq-sfkgmsd and prescription medicines only as told by your health care provider. Drink enough fluid to keep your urine pale yellow. Wash your hands often using soap and water. If soap and water are not available, use hand court officer. Make sure that all people in your [...] eating and drinking to prevent dehydration. Take hnpe-sak-qsuxcpe and prescription medicines only as told by [...] 08/05/2006 Document Revised: 11/27/2019 Document Reviewed: 01/13/2019 Associated Content Patient Education 2020 [employer]. Follow Up Care 09/21/2022 11:43:03 With:Inessa Grajeda CNP Address: When:1 month [facility] 01-19-2023 Evaluation + Plan noteExtracted from: Title:ANES Post-operative Note Author:Kurt Oseguera MD Date:09/06/22 Plan Transfer/Discharge: Transfer/Discharge Discharge when meets criteria ( To home ). Extracted from: Title:ANES Pre-operative Note Author:Lillie Oseguera MD Date:09/06/22 Plan [place] Society of Anesthesiologists (ASA) physical status classification: Class III. Anesthetic Preoperative Plan: Anesthesia General, and Monitored anethesia care. Future Appointments Appointment Date:10/30/2022 03:00:00 PM Scheduled Provider:Elliott Solis MD [facility] Appointment Type:Cardiology Follow Up (FT) Appointment Date:01/30/2023 01:20:00 PM Scheduled Provider:POLLY MARIANO PA-C Location:[facility] Appointment Type:URO Office Visit Future Scheduled Tests Laboratory* Fecal WBC Lactoferrin 05/09/22 * Giardia lamblia, Direct Detection EIA 05/09/22 * O & P Exam, Routine 05/09/22 * Clostridium difficile by PCR 05/09/22 * Enteric Panel by PCR 05/09/22 * CBC w/ Auto Diff 05/09/22 * Comprehensive Metabolic Panel 05/09/22 [facility]01-19-2023 Hospital Discharge instructions Patient Education 09/06/2022 09:52:38 Colonoscopy, Care After Surgery Salam (CUSTOM) Colonoscopy Care After Surgery Please read the instructions outlined below and refer to this sheet in the next few weeks. These discharge instructions provide you with general information on caring for yourself [facility]. Your doctor may also give you [...] what activities are safe for you. Take ylng-fgc-ediryzq and prescription medicines only as told by [...] 02/03/2013 Document Revised: 01/27/2019 Document Reviewed: 01/05/2019 Associated Content Patient Education 2020 [email or web address]. Follow Up Care 06/26/2022 12:25:13 With:Zulema CRAMER Address: [facility] [address] [place] [address] Business (1) When: Unknown Comments:Office to call for follow-up appointment [facility]11-17-2022 Evaluation note* Encounter Date Diagnosis Assessment Notes Treatment Notes Treatment Clinical Notes Jun, Chronic obstructive pulmonary disease, unspecified (ICD-10 - J44.9) Jun, Tobacco abuse (ICD-10 - Z72.0) Cut back on smoking to goal of stopping, Jun, Diastolic dysfunction (ICD-10 - I51.9) [facility] Other 04-25-2022 Hospital Discharge instructions Patient Education [...] fried and sweet foods. General instructions Take pqqk-dgk-gdjoztm and prescription medicines only as told by [...] 06/01/2010 Document Revised: 11/26/2019 Document Reviewed: 08/21/2018 Associated Content Patient Education 2020 [email or web address]. Follow Up Care 09/04/2021 10:41:00 With:LILI WALSH, Donaldo Moreira, URL Address: [facility] [address], [place] [phone] When:04/12/2022 [facility] 11-09-2021 NoteHNO ID: [id number] Author: Crystal Rodriguez PA-C Service: ? Author Type: Physician Promotions Executive Producer Type: Progress Notes Filed: 06/27/2021 4:56 PM Note Text: Comprehensive [facility] NOTE CC: Rock Herrera is a 50 year old female [...] ER - Follow up as clinically indicated Crystal Rodriguez PA-C Comprehensive ENT HPI: 50 year [...] bipolar - COPD (chronic obstructive pulmonary disease) ([facility]) - Depression - Ana Laura-Danlos [...] Derived Hives - Atomoxetine (more content not included)...[facility]09-01-2021 NoteHNO ID: [id number] Author: RT James(R) Service: ? Author Type: Powder Truck Driver Type: Progress Notes Filed: 04/19/2021 1:56 PM Note Text: Radiology Service Progress Note PATIENT NAME: Rock Herrera DATE OF SERVICE: April 19, 2021 [...] April 19, 2021 1:55 [facility]09-01-2021 NoteHNO ID: [id number] Author: Randi Farrell, DO Service: ? Author [...] She will follow-up in a [facility] NoteHNO ID: [id number] Author: RT James(Lillie) Service: ? Author Type: Powder Truck Driver Type: Progress Notes Filed: 04/19/2021 1:09 PM Note Text: Radiology Service Progress Note PATIENT NAME: Rock Herrera DATE OF SERVICE: April 19, 2021 [...] Valery Kwong, RT(R) [facility] 19, 2021 [facility]09 [facility]ments Appointment Date:12/11/2021 11:45:00 AM Scheduled Provider:Donaldo PEARSON MD Location:[facility] Appointment Type:URO Office Visit Appointment Date:01/11/2022 02:15:00 PM Scheduled Provider:Zulema CRAMER MD [facility] Type:[facility] Future Appointments Appointment Date:01/11/2022 02:15:00 PM Scheduled Provider:Zulema CRAMER MD Location[facility] Appointment Type:[facility] Follow Up Appointment Date:04/09/2022 01:45:00 PM Scheduled Provider:Donaldo PEARSON MD Location:[facility] Appointment Type:URO Office Visit [facility] evaluation + Plan note Future Appointments Appointment Date:02/01/2022 08:15:00 AM Scheduled Provider: Location:[facility] Appointment Type:Surgery PAT COVID Testing Appointment Date:02/01/2022 09:00:00 AM Scheduled Provider: Location:[facility] Appointment Type:Surgery FT Appointment Date:02/08/2022 09:40:00 AM Scheduled Provider: Location:[facility] Appointment Type:Surgery FT Appointment Date:04/09/2022 01:45:00 PM Scheduled Provider:Donaldo PEARSON MD Location:[facility] Appointment Type:URO Office Visit [facility] Evaluation + Plan note Future Appointments Appointment Date:02/01/2022 08:15:00 AM Scheduled Provider: Location:[facility] Appointment Type:Surgery PAT COVID Testing Appointment Date:02/01/2022 09:00:00 AM Scheduled Provider: Location:[facility] Appointment Type:Surgery FT Appointment Date:02/08/2022 09:40:00 AM Scheduled Provider: Location:[facility] Appointment Type:Surgery FT Appointment Date:03/06/2022 10:30:00 AM Scheduled Provider:Cady CALIX CNP [facility]ment Type:Cardiology Follow Up (FT) Appointment Date:04/09/2022 01:45:00 PM Scheduled Provider:Donaldo PEARSON MD [facility] Future Appointments Appointment Date:02/08/2022 09:30:00 AM Scheduled Provider: Location:[facility] Appointment Type:Surgery FT Appointment Date:03/06/2022 10:30:00 AM Scheduled Provider:Cady CALIX CNP [facility] App[facility]ment Type:Cardiology Follow Up (FT) Appointment Date:04/09/2022 01:45:00 PM Scheduled Provider:Donaldo PEARSON MD [facility] Future Appointments Appointment Date:03/06/2022 10:30:00 AM Scheduled Provider:Cady CALIX CNP [facility] App[facility]ment Type:Cardiology Follow Up (FT) Appointment Date:03/22/2022 08:15:00 AM Scheduled Provider: Location:[facility] Appointment Type:Surgery PAT COVID Testing Appointment Date:03/29/2022 08:40:00 AM Scheduled Provider: Location:[facility] Appointment Type:Surgery FT Appointment Date:04/09/2022 01:45:00 PM Scheduled Provider:Donaldo PEARSON MD [facility] Future Appointments Appointment Date:03/20/2022 01:00:00 PM Scheduled Provider: [facility] App[facility]ment Type:Cardiology Nurse Visit (FT) Appointment Date:03/22/2022 08:15:00 AM Scheduled Provider: Location:[facility] Appointment Type:Surgery PAT COVID Testing Appointment Date:03/29/2022 08:40:00 AM Scheduled Provider: Location:[facility] Appointment Type:Surgery FT Appointment Date:04/09/2022 01:45:00 PM Scheduled Provider:[facility]onal[facility]SON [facility] Office Visit Appointment Date:09/06/2022 01:15:00 PM Scheduled Provider:Elliott Solis MD [facility] Type:Cardiology Follow Up (FT) [facility] Future App[facility]ments Appointment Date:03/22/2022 08:15:00 AM Scheduled Provider: Location:[facility] Appointment Type:Surgery PAT COVID Testing Appointment Date:03/29/2022 08:40:00 AM Scheduled Provider: Location:[facility] Appointment Type:Surgery FT Appointment Date:04/09/2022 01:45:00 PM Scheduled Provider:Donaldo PEARSON MD Location:[facility] Appointment Type:URO Office Visit Appointment Date:09/06/2022 01:15:00 PM Scheduled Provider:Elliott Solis MD [facility]ment Type:Cardiology Follow Up (FT) [facility] Future Appointments Appointment Date:03/29/2022 08:40:00 AM Scheduled Provider: Location:[facility] Appointment Type:Surgery FT Appointment Date:04/09/2022 01:45:00 PM Scheduled Provider:Donaldo PEARSON MD [facility] Type:URO Office Visit Appointment Date:09/06/2022 01:15:00 PM Scheduled Provider:Elliott Solis MD [facility] Type:Cardiology Follow Up (FT) [facility] Future Appointments Appointment Date:05/09/2022 01:40:00 PM Scheduled Provider:Inessa Grajeda CNP [facility] Appointment Type:BADH Follow Up Appointment Date:05/15/2022 01:30:00 PM Scheduled Provider:Cady CALIX CNP Location:[facility] Appointment Type:Cardiology ED Follow Up (FT) Appointment Date:05/16/2022 01:20:00 PM Scheduled Provider:POLLY MARIANO PA-C Location:[facility] Appointment Type:URO Office Visit Appointment Date:09/06/2022 01:15:00 PM Scheduled Provider:Elliott Solis MD [facility]ment Type:Cardiology Follow Up (FT) [facility] Future Appointments Appointment Date:06/11/2022 11:00:00 AM Scheduled Provider: Location:[facility] Appointment Type:Surgery PAT COVID Testing Appointment Date:06/18/2022 09:45:00 AM Scheduled Provider: Location:[facility] Appointment Type:Surgery FT Appointment Date:09/06/2022 01:15:00 PM Scheduled Provider:Elliott Solis MD [facility] App[facility]ment Type:Cardiology Follow Up (FT) Appointment Date:10/30/2022 03:00:00 PM Scheduled Provider:Elliott Solis MD [facility] Appointment Type:Cardiology Follow Up (FT) Future Scheduled Tests Laboratory* Fecal WBC Lactoferrin 05/09/22 * Giardia lamblia, Direct Detection EIA 05/09/22 * O & P Exam, Routine 05/09/22 * Clostridium difficile by PCR 05/09/22 * Enteric Panel by PCR 05/09/22 * CBC w/ Auto Diff 05/09/22 * Comprehensive Metabolic Panel 05/09/22 [facility] Future Appointments Appointment Date:09/06/2022 01:15:00 PM Scheduled Provider:Elliott Solis MD [facility] Appointment Type:Cardiology Follow Up (FT) Appointment Date:10/30/2022 03:00:00 PM Scheduled Provider:Elliott Solis MD [facility] App[facility]ment Type:Cardiology Follow Up (FT) Appointment Date:01/30/2023 01:20:00 PM Scheduled Provider:POLLY MARIANO PA-C Location:[facility] Appointment Type:URO Office Visit Future Scheduled Tests Laboratory* Fecal WBC Lactoferrin 05/09/22 * Giardia lamblia, Direct Detection EIA 05/09/22 * O & P Exam, Routine 05/09/22 * Clostridium difficile by PCR 05/09/22 * Enteric Panel by PCR 05/09/22 * CBC w/ Auto Diff 05/09/22 * Comprehensive Metabolic Panel 05/09/22 [facility] Future Appointments Appointment Date:10/30/2022 03:00:00 PM Scheduled Provider:Elliott Solis MD [facility] Appointment Type:Cardiology Follow Up (FT) Appointment Date:01/30/2023 01:20:00 PM Scheduled Provider:POLLY MARIANO PA-C Location:[facility] Appointment Type:URO Office Visit Future Scheduled Tests Laboratory* Fecal WBC Lactoferrin 05/09/22 * Giardia lamblia, Direct Detection EIA 05/09/22 * O & P Exam, Routine 05/09/22 * Clostridium difficile by PCR 05/09/22 * Enteric Panel by PCR 05/09/22 * CBC w/ Auto Diff 05/09/22 * Comprehensive Metabolic Panel 05/09/22 [facility] Future Appointments Appointment Date:10/23/2022 09:00:00 AM Scheduled Provider: [facility] Appointment Type:US Abdominal/Pelvis (FT) Appointment Date:10/29/2022 02:40:00 PM Scheduled Provider:Inessa Grajeda CNP [facility] Appointment Type:BADH Follow Up Appointment Date:10/30/2022 03:00:00 PM Scheduled Provider:Elliott Solis MD [facility]ment Type:Cardiology Follow Up (FT) Appointment Date:10/31/2022 03:15:00 PM Scheduled Provider: Location:[facility] Appointment Type:Surgery PAT COVID Testing Appointment Date:11/07/2022 02:40:00 PM Scheduled Provider: Location:[facility] Appointment Type:Surgery FT Appointment Date:01/30/2023 01:20:00 PM Scheduled Provider:POLLY MARIANO PA-C Location:[facility] Appointment Type:URO Office Visit Future Scheduled Tests Laboratory* Fecal WBC Lactoferrin 05/09/22 * Giardia lamblia, Direct Detection EIA 05/09/22 * O & P Exam, Routine 05/09/22 * Clostridium difficile by PCR 05/09/22 * Enteric Panel by PCR 05/09/22 * CBC w/ Auto Diff 05/09/22 * Comprehensive Metabolic Panel 05/09/22 Radiology* US Abdomen Complete 10/23/22 [facility] evaluation + Plan note Future Appointments Appointment Date:10/30/2022 08:00:00 AM Scheduled Provider: Location:.[facility] Appointment Type:US Abdominal/Pelvis (FT) Appointment Date:10/30/2022 03:00:00 PM Scheduled Provider:Elliott Solis MD [facility] Appointment Type:Cardiology Follow Up (FT) Appointment Date:11/07/2022 02:40:00 PM Scheduled Provider: Location:[facility] Appointment Type:Surgery FT Appointment Date:12/10/2022 02:40:00 PM Scheduled Provider:Inessa Grajeda CNP [place] Appointment Type:[facility] Follow Up Appointment Date:01/30/2023 01:20:00 PM Scheduled Provider:POLLY MARIANO PA-C Location:[facility] Appointment Type:URO Office Visit Future Scheduled Tests Laboratory* Clostridium difficile by PCR 05/09/22 * CBC w/ Auto Diff 05/09/22 * Comprehensive Metabolic Panel 05/09/22 Radiology* US Abdomen Complete 10/30/22 [facility] evaluation + Plan note Future Appointments Appointment Date:11/07/2022 02:40:00 PM Scheduled Provider: Location:[facility] Appointment Type:Surgery FT Appointment Date:11/09/2022 10:00:00 AM Scheduled Provider: [facility] Appointment Type:US Abdominal/Pelvis (FT) Appointment Date:12/10/2022 02:40:00 PM Scheduled Provider:Inessa Grajeda CNP [place] Appointment Type:[facility] Follow Up Appointment Date:01/30/2023 01:20:00 PM Scheduled Provider:POLLY MARIANO PA-C Location:[facility] Appointment Type:URO Office Visit Future Scheduled Tests Laboratory* Clostridium difficile by PCR 05/09/22 * CBC w/ Auto Diff 05/09/22 * Comprehensive Metabolic Panel 05/09/22 Radiology* US [facility]domen [facility] App[facility]ments Appointment Date:12/10/2022 02:40:00 PM Scheduled Provider:Inessa Grajeda CNP [place] Appointment Type:[facility] Follow Up Appointment Date:01/17/2023 09:50:00 AM Scheduled Provider: Location:[facility] Appointment Type:Surgery FT Appointment Date:01/30/2023 01:20:00 PM Scheduled Provider:POLLY MARIANO PA-C Location:[facility] Appointment Type:URO Office Visit Future Scheduled Tests Laboratory* Clostridium difficile by PCR 05/09/22 * CBC w/ Auto Diff 05/09/22 * Comprehensive Metabolic Panel 05/09/22 [facility] Future Appointments Appointment Date:01/30/2023 01:20:00 PM Scheduled Provider:POLLY MARIANO PA-C Location:[facility] Appointment Type:URO Office Visit Appointment Date:02/06/2023 02:00:00 PM Scheduled Provider:Inessa Grajeda CNP Location:[facility] Appointment Type:[facility] Follow Up Future Scheduled Tests Laboratory* Clostridium difficile by PCR 05/09/22 * CBC w/ Auto Diff 05/09/22 * CBC w/ Auto Diff 12/25/22 * Comprehensive Metabolic Panel 05/09/22 * Comprehensive Metabolic Panel 12/25/22 [facility] Future Appointments Appointment Date:06/14/2023 11:00:00 AM Scheduled Provider: [facility] Appointment Type:CV Holter/Event (FT) Appointment Date:07/25/2023 11:45:00 AM Scheduled Provider:Elliott SOLIS MD [facility] Appointment Type:Cardiology Follow Up (FT) Future Scheduled Tests Laboratory* Pancreatic Elastase, Fecal 01/29/23 * Fecal WBC Lactoferrin 01/29/23 * Giardia lamblia, Direct Detection EIA 01/29/23 * O & P Exam, Routine 01/29/23 * Clostridium Difficile PCR 01/29/23 * Enteric Panel by PCR 01/29/23 * CBC w/ Auto Diff 12/25/22 * Comprehensive Metabolic Panel 12/25/22 Radiology* Echo Transthoracic Complete 05/20/23 [facility] Future Appointments Appointment Date:07/25/2023 11:45:00 AM Scheduled Provider:Elliott SOLIS MD Location[facility] Appointment Type:Cardiology Follow Up (FT) Appointment Date:07/30/2023 02:00:00 PM Scheduled Provider:POLLY MARIANO PA-C Location:[facility] Appointment Type:URO Office Visit Future Scheduled Tests Laboratory* Pancreatic Elastase, Fecal 01/29/23 * Fecal WBC Lactoferrin 01/29/23 * Giardia lamblia, Direct Detection EIA 01/29/23 * O & P Exam, Routine 01/29/23 * Clostridium Difficile PCR 01/29/23 * Enteric Panel by PCR 01/29/23 * CBC w/ Auto Diff 12/25/22 * Comprehensive Metabolic Panel 12/25/22 Radiology* Echo Transthoracic Complete 05/20/23 [facility] Future Appointments Appointment Date:07/30/2023 02:00:00 PM Scheduled Provider:POLLY MARIANO PA-C Location:[facility] Appointment Type:URO Office Visit Future Scheduled Tests Laboratory* Pancreatic Elastase, Fecal 01/29/23 * Fecal WBC Lactoferrin 01/29/23 * Giardia lamblia, Direct Detection EIA 01/29/23 * O & P Exam, Routine 01/29/23 * Clostridium Difficile PCR 01/29/23 * Enteric Panel by PCR 01/29/23 * CBC w/ Auto Diff 12/25/22 * Comprehensive Metabolic Panel 12/25/22 Radiology* Echo Transthoracic Complete 05/20/23 [facility] Future Appointments Appointment Date:12/31/2023 01:00:00 PM Scheduled Provider:POLLY MARIANO PA-C Location:[facility] Appointment Type:URO Office Visit Future Scheduled Tests Laboratory* Pancreatic Elastase, Fecal 01/29/23 * Fecal WBC Lactoferrin 01/29/23 * Giardia lamblia, Direct Detection EIA 01/29/23 * O & P Exam, Routine 01/29/23 * Clostridium Difficile PCR 01/29/23 * Enteric Panel by PCR 01/29/23 * CBC w/ Auto Diff 12/25/22 * Comprehensive Metabolic Panel 12/25/22 Radiology* Echo Transthoracic Complete 05/20/23 [facility] evaluation + Plan note Future Appointments Appointment Date:01/01/2024 11:00:00 AM Scheduled Provider:Cady Alva PA-C Location:[facility] Appointment Type:Pain Management - Follow Up (FT) Appointment Date:01/30/2024 02:15:00 PM Scheduled Provider:En Carmen PA-C [facility] Appointment Type:Cardiology Follow Up (FT) Appointment Date:01/05/2025 01:00:00 PM Scheduled Provider:POLLY MARIANO PA-C Location:[facility] Appointment Type:URO Office Visit Future Scheduled Tests Laboratory* Pancreatic Elastase, Fecal 01/29/23 * Fecal WBC Lactoferrin 01/29/23 * Giardia lamblia, Direct Detection EIA 01/29/23 * O & P Exam, Routine 01/29/23 * Clostridium Difficile PCR 01/29/23 * Enteric Panel by PCR 01/29/23 Radiology* Echo Transthoracic Complete 05/20/23 [facility] evaluation + Plan note Future Appointments Appointment Date:03/05/2024 03:30:00 PM Scheduled Provider:Andrew Eid DO Location:[facility] [place] Appointment Type:Pain Management - Follow Up (FT) Appointment Date:07/30/2024 01:45:00 PM Scheduled Provider:Kehinde Davalos MD [facility] Appointment Type:Cardiology Follow Up (FT) Appointment Date:01/05/2025 01:00:00 PM Scheduled Provider:POLLY MARIANO PA-C Location:[facility] Appointment Type:URO Office Visit Future Scheduled Tests Radiology* Echo Transthoracic Complete 05/20/23 [facility] Future Appointments Appointment Date:08/26/2024 08:15:00 AM Scheduled Provider:Cady Alva PA-C Location:[facility] [place] Appointment Type:Pain Management - Follow Up (FT) Appointment Date:01/05/2025 01:00:00 PM Scheduled Provider:POLLY MARIANO PA-C Location:[facility] Appointment Type:URO Office Visit [facility] Evaluation noteNo assessment information [facility] Work Phone: Evaluation noteNo [facility] [place] Other Evaluation note* Diagnosis Chronic bilateral low back pain with bilateral sciatica Diabetic peripheral neuropathy (CMS/HCC) Type II or unspecified type diabetes mellitus with neurological manifestations, not stated as uncontrolled Lumbar radiculopathy Thoracic or lumbosacral neuritis or radiculitis, unspecified documented in this encounter [facility]* Diagnosis Hav (hallux abducto valgus), right- Primary Plantar fasciitis Plantar fascial fibromatosis Diabetes 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 polyneuropathy, with long-term current use of insulin (CMS/HCC) Contracture of right ankle Bone spur of right foot documented in this encounter [facility] HealthcareEvaluation note* Diagnosis Chronic bilateral low back pain with bilateral sciatica Diabetic peripheral neuropathy (CMS/HCC) Type II or unspecified type diabetes mellitus with neurological manifestations, not stated as uncontrolled Lumbar radiculopathy Thoracic or lumbosacral neuritis or radiculitis, unspecified documented in this encounter [facility] HealthcareEvaluation note* Diagnosis Pre-op evaluation- Primary Hallux valgus of right foot Essential hypertension Unspecified essential hypertension Diabetic peripheral neuropathy (CMS-HCC) Type II or unspecified type diabetes mellitus with neurological manifestations, not stated as uncontrolled [facility] Diagnosis Anxiety state Anxiety state, unspecified Type 2 diabetes mellitus without complication, without long-term current use of insulin (CMS-HCC) Type 2 diabetes mellitus with diabetic mononeuropathy, without long-term current use of insulin (CMS-HCC) documented [facility]* Diagnosis Primary osteoarthritis of left knee- Primary Chronic pain of left knee [facility]* Diagnosis Pain Generalized pain [facility] Diagnosis Right elbow pain Pain in joint, upper arm [facility]* Diagnosis Anxiety Anxiety state, unspecified Chronic pain of left knee- Primary Osteoarthritis Osteoarthrosis, unspecified whether generalized or localized, unspecified site Primary osteoarthritis of left knee Chronic pain of left knee documented [facility] this encounter [facility]* Diagnosis Xerosis cutis- Primary Other specified disease of sebaceous glands documented in this encounter [facility]* Diagnosis Leukocytosis, unspecified type documented in this encounter [facility]* Diagnosis Acquired deformity of right toe- Primary Diabetes 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 polyneuropathy, with long-term current use of insulin ([facility]) documented in this encounter [facility]* Diagnosis Anxiety Anxiety state, unspecified documented in this encounter [facility]* Diagnosis Fibromyalgia Unspecified myalgia and myositis documented in this encounter [facility]* Diagnosis Well woman exam with routine gynecological exam Routine gynecological examination H/O: hysterectomy Acquired absence of both cervix and uterus Osteoporosis, post-menopausal ([facility]) Senile osteoporosis documented in this encounter [facility]Evaluation note* Diagnosis Toe pain, left- Primary Pain in soft tissues of limb Toe pain, right Pain in soft tissues of limb Capsulitis of metatarsophalangeal (MTP) joint of right foot Paronychia, toe, right Paronychia of toe of left foot documented in this encounter [facility]* Diagnosis Left knee pain, unspecified chronicity- Primary Arthritis of left knee Toe pain, left- Primary Pain in soft tissues of limb Toe pain, right Pain in soft tissues of limb Capsulitis of metatarsophalangeal (MTP) joint of right foot Paronychia, toe, right Paronychia of toe of left foot documented in this encounter [facility]* Diagnosis Left elbow pain- Primary Pain in joint, upper arm Left wrist pain Pain in joint, forearm Ulnar neuropathy at elbow of left upper extremity Carpal tunnel syndrome of left wrist documented in this encounter [facility]* Diagnosis Left wrist pain- Primary Pain in joint, forearm Left knee pain, unspecified chronicity Ulnar neuropathy at elbow of left upper extremity documented in this encounter [facility]* Diagnosis Arthritis of left knee- Primary Chronic pain of left knee documented in this encounter [facility]* Diagnosis Chronic pain of left knee Primary osteoarthritis of left knee Complex tear of medial meniscus of left knee as current injury, initial encounter Capsulitis of metatarsophalangeal (MTP) joint of right foot- Primary Paronychia, toe, right Paronychia of toe of left foot Toe pain, left Pain in soft tissues of limb Toe pain, right Pain in soft tissues of limb Diabetes 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 polyneuropathy, with long-term current use of insulin (CMS/HCC) documented in this encounter [facility]* Diagnosis Capsulitis of metatarsophalangeal (MTP) joint of right foot- Primary Paronychia, toe, right Paronychia of toe of left foot Toe pain, left Pain in soft tissues of limb Toe pain, right Pain in soft tissues of limb Diabetes 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 polyneuropathy, with long-term current use of insulin (CMS/HCC) documented in this encounter [facility]* Diagnosis Nausea and vomiting, unspecified vomiting type- Primary Intractable chronic migraine without aura and without status migrainosus (CMS/HCC) Diabetic peripheral neuropathy (CMS/HCC) Type II or unspecified type diabetes mellitus with neurological manifestations, not stated as uncontrolled documented [facility] encounter [facility]* Diagnosis Primary osteoarthritis of left knee documented in this encounter [facility]* Diagnosis Intractable chronic migraine without aura and without status migrainosus (CMS/HCC)- Primary Diabetic peripheral neuropathy (CMS/HCC) Type II or unspecified type diabetes mellitus with neurological manifestations, not stated as uncontrolled Capsulitis of metatarsophalangeal (MTP) joint of right foot- Primary Paronychia, toe, right Paronychia of toe of left foot Diabetes 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 polyneuropathy, with long-term current use of insulin (CMS/HCC) documented in this encounter [facility]* Diagnosis Capsulitis of metatarsophalangeal (MTP) joint of right foot- Primary Paronychia, toe, right Paronychia of toe of left foot Diabetes 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 polyneuropathy, with long-term current use of insulin (CMS/HCC) documented in this encounter [facility]* Diagnosis Attention deficit hyperactivity disorder (ADHD), predominantly inattentive type (CMS/HCC)- Primary Fibromyalgia Unspecified myalgia and myositis Anxiety Anxiety state, unspecified documented [facility] encounter [facility]* Diagnosis Attention deficit hyperactivity disorder (ADHD), predominantly inattentive type ([facility]/HCC)- Primary Intractable chronic migraine without aura and without status migrainosus ([facility]/HCC) documented in this encounter [facility]* Diagnosis Diabetes mellitus without complication ([facility]-HCC)- Primary Type II or unspecified type diabetes mellitus without mention of complication, not stated as uncontrolled documented [facility] this encounter [facility]* Diagnosis Left knee pain, unspecified chronicity- Primary documented in this encounter [facility]* Diagnosis Left knee pain, unspecified chronicity- Primary documented in this encounter [facility]Evaluation [facility]* Diagnosis Left knee pain, unspecified chronicity- Primary documented in this encounter [facility]Evaluation note* Diagnosis CELINE (obstructive sleep apnea)- Primary Obstructive sleep apnea (adult) (pediatric) Chronic migraine without aura without status migrainosus, not intractable ([facility]) Cognitive decline Lumbar radiculopathy Thoracic or lumbosacral neuritis or radiculitis, unspecified documented in this encounter [facility] HealthcareEvaluation note* Diagnosis Anxiety- Primary Anxiety state, unspecified Diabetes mellitus without complication ([facility]) Type II or unspecified type diabetes mellitus without mention of complication, not stated as uncontrolled Essential hypertension Unspecified essential hypertension Mixed hyperlipidemia Medication management Chronic obstructive pulmonary disease, unspecified COPD type ([facility]) Abnormality of gait and mobility Current smoker [facility] this [facility]* Diagnosis Left knee pain, unspecified chronicity- Primary Arthritis of left knee Chronic pain of left knee documented in this encounter [facility] HealthcareEvaluation note* Diagnosis Type 2 diabetes mellitus with hyperglycemia, without long-term current use of insulin ([facility]) documented [facility] this [facility]* Diagnosis Diabetes mellitus without complication ([facility])- Primary Type II or unspecified type diabetes mellitus without mention of complication, not stated as uncontrolled [facility]* Diagnosis Left knee pain, unspecified chronicity- Primary Arthritis of left knee Chronic pain of left knee documented in this encounter [facility] general [...] vom iting Hospitalization History see above surgical [facility] Other History general Narrative - Reported* Type [...] surgery 1989 Surgical History Carpal tunnel surgery 1992 Surgical [...] vom iting Hospitalization History see above surgical [place] Other Hospital course Narrative No data available for this section [facility] No data available for this section [facility]ructionsNot on filedocumented in this encounter [facility] [...] data available for this section [facility] for referral (narrative)* Diagnostic Procedure Only (Routine) - Closed Specialty Diagnoses / Procedures Referred By Contac t Referred To Contact XR IMAGING Diagnoses Pain Procedures XR SHOULDER GENERAL 3V OR MORE AP/TRUE AP/OTHER RT X-RAY SHOULDER COMPLET MIN 2 VIEWS Randi Farrell DO [address] [place] [address] [place] [address] Referral ID Status Reason Start Date Expiration Date V isits Requested Visits Authorized Closed Auto-Generate d Referral 04/17/2021 05/17/2022 1 1 [facility] for referral (narrative)* Diagnostic Procedure Only (Routine) - Closed Specialty Diagnoses / Procedures Referred By Contac t Referred To Contact XR IMAGING Diagnoses Right elbow pain Procedures XR ELBOW SPECIAL VIEWS AP/LAT/OTHER RT X-RAY ELBOW MINIMUM 3 VIEWS Randi Farrell DO [address] [place] [address] [place] [address] Referral ID Status Reason Start Date Expiration Date V isits Requested Visits Authorized Closed Auto-Generate d Referral 04/19/2021 05/19/2022 1 1 [facility] for referral (narrative)* Consultation (Routine) - Pending Review Specialty Diagnoses / Procedures Referred By Contac t Referred To Contact Pain Medicine Diagnoses Primary osteoarthritis of left knee Procedures [facility] OFFICE/OUTPATIENT [facility] 60 MINUTES Pastora Alcantara DO [address] [facility] [address] [place] [address] Candy Turner MD [address] [place] [id number] Referral ID Status Reason Start Date Expiration Date Visits Requested Visits Authorized [id number] Pending Review Consult and Treat 04/21/2024 10/18/2024 1 1 [facility] for referral (narrative)* Consultation (Routine) - Authorized Specialty Diagnoses / Procedures Referred By Contac t Referred To Contact Pain Medicine Diagnoses Primary osteoarthritis of left knee Procedures [place] OFFICE/OUTPATIENT [facility] 60 MINUTES Pastora Alcantara DO [address] [facility] [address] [place] [address] Avi Maharaj MD [address] [place] [address] Referral ID Status Reason Start Date Expiration Date Visits Requested Visits Authorized [id number] Authorized Consult and Treat 05/05/2024 11/01/2024 1 1 [facility] for visit Narrative* Diagnostic Procedure Only (Routine) - Closed Specialty Diagnoses / Procedures Referred By Contac t Referred To Contact XR IMAGING Diagnoses Pain Procedures XR SHOULDER GENERAL 3V OR MORE AP/TRUE AP/OTHER RT X-RAY SHOULDER COMPLET MIN 2 VIEWS Randi Farrell, DO [address] [place] [address] [place] [address] Referral ID Status Reason Start Date Expiration Date V isits Requested Visits Authorized Closed Auto-Generate d Referral 04/17/2021 05/17/2022 1 1 [facility] for visit Narrative* Diagnostic Procedure Only (Routine) - Closed Specialty Diagnoses / Procedures Referred By Contac t Referred To Contact XR IMAGING Diagnoses Right elbow pain Procedures XR ELBOW SPECIAL VIEWS AP/LAT/OTHER RT X-RAY ELBOW MINIMUM 3 VIEWS Randi Farrell, DO [address] [place] [address] [place] [address] Referral ID Status Reason Start Date Expiration Date V isits Requested Visits Authorized Closed Auto-Generate d Referral 04/19/2021 05/19/2022 1 1 [facility] for visit Narrative* Consultation (Routine) - Closed Specialty Diagnoses / Procedures Referred By Contac t Referred To Contact Medical Oncology / Hematology and Oncology Diagnoses Leukocytosis, unspecified type Robert Giron, DO [address] [facility], [place] [address] Phone: tel: fax: Brandon Simpson MD [address] [place] [address] Phone: tel: fax: Referral ID Status Reason Start Date Expiration Date V isits Requested Visits Authorized [id number] Closed Specialty Services Required 05/06/2024 05/06/2025 1 1 [facility] for visit Narrative* Rehabilitation - Outpatient (Routine) - Authorized Specialty Diagnoses / Procedures Referred By Contac t Referred To Contact Physical Therapy Diagnoses Pain in left knee Procedures [facility] PHYSICAL THERAPY EVALUATION LOW COMPLEX 20 MINS MA OFFICE/OUTPATIENT NEW [facility] 60 MINUTES Josseline Abad MD [address] [facility] [place] [address] Phone: tel: fax: [facility] [address] [address] [place] [address] Phone: tel: fax: Referral ID Status Reason Start Date Expiration Date V isits Requested Visits Authorized [id number] Authorized 08/24/2024 02/20/2025 30 30 [facility] for [facility] Narrative* Rehabilitation - Outpatient (Routine) - Authorized Specialty Diagnoses / Procedures Referred By Jamal t Referred To Contact Physical Therapy Diagnoses Pain in left knee Procedures MA PHYSICAL THERAPY EVALUATION LOW COMPLEX 20 MINS MA OFFICE/OUTPATIENT NEW HIGH MDM 60 MINUTES Josseline Abad MD [address] [facility] [place] [address] Phone: tel: fax: Gricelda Hammond PT Referral ID Status Reason Start Date Expiration Date Visits Requested Visits Authorized [id number] Authorized Consult and Treat 08/24/2024 08/18/2025 30 30 [facility] Summary Purpose Family History Relationship Condition Age [...] By Jamal t Referred To Contact Diagnoses Intractable chronic migraine without aura and without status migrainosus (CMS/HCC) Carlso Sanchez MD [address] [facility] [address] [place] [id number] Referral ID Status Reason Start Date Expiration Date V isits Requested Visits Authorized [id number] Pending Review 04/27/2024 10/24/2024 1 1 Specialty Diagnoses / Procedures Referred By Contac t Referred To Contact Physical Therapy Diagnoses Arthritis of left knee Procedures MA OFFICE/OUTPATIENT NEW HIGH MDM 60 MINUTES Cj Zepeda, HEATSET WINDER OPERATOR [address] [place] [address] Galo Coronado, PT [address] [place] [address] Referral ID Status Reason Start Date Expiration Date Visits Requested Visits Authorized [id number] Pending Review Specialty Services Required 04/08/2024 10/05/2024 1 1 Specialty Diagnoses / Procedures Referred By Contveronique t Referred To Contact Diagnoses Primary osteoarthritis of left knee Chronic pain of left knee Procedures Case request operating room: INJECTION BLOCK NERVE KNEE Left Genicular NB Alexsandra Smart, MYRNA [address], [address] [place] [address] Referral ID Status Reason Start Date Expiration Date V isits Requested Visits Authorized [id number] Pending Review 05/20/2024 05/20/2025 1 1 Additional Source Comments INFORMATION SOURCE (unrecogn ized section and content) DATE CREATED AUTHOR 10/09/2021 [facility] DATE CREATED AUTHOR AUTHOR'S ORGANIZ ATION 02/22/2022 [facility] DATE CREATED AUTHOR AUTHOR'S ORGANIZ ATION 01/28/2023 [facility] DATE CREATED AUTHOR AUTHOR'S ORGANIZ ATION 06/26/2023 [facility] DATE CREATED AUTHOR AUTHOR'S ORGANIZ ATION 04/04/2024 [facility] DATE CREATED AUTHOR AUTHOR'S ORGANIZ ATION 07/10/2024 [facility] DATE CREATED AUTHOR AUTHOR'S ORGANIZ ATION 09/01/2024 [facility] DATE CREATED AUTHOR AUTHOR'S ORGANIZ ATION 09/17/2024 [facility] DATE CREATED AUTHOR AUTHOR'S ORGANIZ ATION 09/17/2024 [facility] DATE CREATED AUTHOR AUTHOR'S ORGANIZ ATION 09/25/2024 [facility] DATE CREATED AUTHOR AUTHOR'S ORGANIZ ATION 09/27/2024 [facility] Care Team (unrecognized sect ion and content) Team Status: Active Member Role Status Dates Robert Giron DO Primary Care Provider Active Team Status: Inactive Member Role Status Dates Robert Giron DO Primary Care Provider Active Valarie Conley APRN ACNP-BC Attending Provider Active Head Of Product Relationship Specialty Start Date End Date Bree Robert Santiago DO [address] [place] [address] PCP - General Family Medicine 05/10/22 Head Of Product Relationship Specialty Start Date End Date Robert Giron MD [address] [place] [address] PCP - General Family Medicine 07/24/23 Head Of Product Relationship Specialty Start Date End Date Robert Giron DO [address] [place] [address] PCP - General Family Medicine 05/10/22 Head Of Product Relationship Specialty Start Date End Date Robert Giron DO [address] [place] [address] PCP - General Family Medicine 05/10/22 Head Of Product Relationship Specialty Start Date End Date Bree Robert Santiago DO [address] [place] [address] PCP - General Family Medicine 05/10/22 Head Of Product Relationship Specialty Start Date End Date Robert Giron DO [address], [place] [address] PCP - General Family Medicine 05/10/22 Head Of Product Relationship Specialty Start Date End Date Robert Giron DO [address] [place] [address] PCP - General Family Medicine 05/10/22 Team Status: Inactive Member Role Status Dates Robert Giron DO Primary Care Provider Active Start: March 31, 2024 End: March 31, 2024 Valarie Conley APRN [facility] Attending Provider Active Start: March 31, 2024 End: March 31, 2024 Head Of Product Relationship Specialty Start Date End Date Robert Giron DO [address] [place] [address] PCP - General Family Medicine 05/10/22 Head Of Product Relationship Specialty Start Date End Date Robert Giron DO [address] [place] [address] PCP - General Family Medicine 05/10/22 Head Of Product Relationship Specialty Start Date End Date Robert Giron DO [address] [place] [address] PCP - General Family Medicine 05/10/22 Head Of Product Relationship Specialty Start Date End Date Robert Giron DO [address], [place] [address] PCP - General Family Medicine 05/10/22 Head Of Product Relationship Specialty Start Date End Date Robert Giron MD [address] [place] [address] PCP - General Family Medicine 07/24/23 Head Of Product Relationship Specialty Start Date End Date Robert Giron DO [address], [place] [address] PCP - General Family Medicine 05/10/22 Head Of Product Relationship Specialty Start Date End Date Robert Giron MD [address] [place] [address] PCP - General Family Medicine 07/24/23 Head Of Product Relationship Specialty Start Date End Date Robert Giron DO [address] [place] [address] PCP - General Family Medicine 05/10/22 Head Of Product Relationship Specialty Start Date End Date Robert Giron MD [address] [place] [address] PCP - General Family Medicine 07/24/23 Head Of Product Relationship Specialty Start Date End Date Robert Giron DO [address] [place] [address] PCP - General Family Medicine 05/10/22 Head Of Product Relationship Specialty Start Date End Date Robert Giron DO [address] [place] [address] PCP - General Family Medicine 05/10/22 Head Of Product Relationship Specialty Start Date End Date Roebrt Giron MD [address] [place] [address] PCP - General Family Medicine 07/24/23 Head Of Product Relationship Specialty Start Date End Date Robert Giron DO [address], [place] [address] PCP - General Family Medicine 05/10/22 Head Of Product Relationship Specialty Start Date End Date Robert Giron MD [address] [place] [address] PCP - General Family Medicine 07/24/23 Head Of Product Relationship Specialty Start Date End Date Robert Giron MD [address] [place] [address] PCP - General Family Medicine 07/24/23 Head Of Product Relationship Specialty Start Date End Date Robert Giron MD [address] [place] [address] PCP - General Family Medicine 07/24/23 Head Of Product Relationship Specialty Start Date End Date Robert Giron MD [address] [place] [address] PCP - General Family Medicine 07/24/23 Head Of Product Relationship Specialty Start Date End Date Robert Giron MD [address], [place] [address] PCP - General Family Medicine 07/24/23 Head Of Product Relationship Specialty Start Date End Date Robert Giron MD [address], [place] [address] PCP - General Family Medicine 07/24/23 Head Of Product Relationship Specialty Start Date End Date Robert Giron MD [address] [place] [address] PCP - General Family Medicine 07/24/23 Head Of Product Relationship Specialty Start Date End Date Robert Giron MD [address] [place] [address] PCP - General Family Medicine 07/24/23 Head Of Product Relationship Specialty Start Date End Date Robert Giron MD [address] [place] [address] PCP - General Family Medicine 07/24/23 Head Of Product Relationship Specialty Start Date End Date Robert Giron MD [address] [place] [address] PCP - General Family Medicine 07/24/23 Head Of Product Relationship Specialty Start Date End Date Robert Giron MD [address], [place] [address] PCP - General Family Medicine 07/24/23 Head Of Product Relationship Specialty Start Date End Date Robert Giron MD [address] [place] [address] PCP - General Family Medicine 07/24/23 Head Of Product Relationship Specialty Start Date End Date Robert Giron MD [address] [place] [address] PCP - General Family Medicine 07/24/23 Head Of Product Relationship Specialty Start Date End Date Robert Giron MD [address] [place] [address] PCP - General Family Medicine 07/24/23 Head Of Product Relationship Specialty Start Date End Date Robert Giron MD [address] [place] [address] PCP - General Family Medicine 07/24/23 Head Of Product Relationship Specialty Start Date End Date Robert Giron MD [address], [place] [address] PCP - General Family Medicine 07/24/23 Head Of Product Relationship Specialty Start Date End Date Robert Giron MD [address] [place] [address] PCP - General Family Medicine 07/24/23 Head Of Product Relationship Specialty Start Date End Date Robert Giron MD [address] [place] [address] PCP - General Family Medicine 07/24/23 Head Of Product Relationship Specialty Start Date End Date Robert Giron MD [address] [place] [address] PCP - General Family Medicine 07/24/23 Head Of Product Relationship Specialty Start Date End Date Robert Giron MD [address], [place] [address] PCP - General Family Medicine 07/24/23 Head Of Product Relationship Specialty Start Date End Date Robert Giron MD [address], [place] [address] PCP - General Family Medicine 07/24/23 Head Of Product Relationship Specialty Start Date End Date Robert Giron MD [address] [place] [address] PCP - General Family Medicine 07/24/23 Head Of Product Relationship Specialty Start Date End Date Robert Giron MD [address], [place] [address] PCP - General Family Medicine 07/24/23 Head Of Product Relationship Specialty Start Date End Date Robert Giron MD [address], [place] [address] PCP - General Family Medicine 07/24/23 Head Of Product Relationship Specialty Start Date End Date Robert Giron MD [address], [place] [address] PCP - General Family Medicine 07/24/23 Head Of Product Relationship Specialty Start Date End Date Robert Giron DO [address], [place] [address] PCP - General Family Medicine 05/10/22 Head Of Product Relationship Specialty Start Date End Date Robert Giron DO [address], [place] [address] PCP - General Family Medicine 05/10/22 Head Of Product Relationship Specialty Start Date End Date Robert Giron DO [address], [place] [address] PCP - General Family Medicine 05/10/22 Head Of Product Relationship Specialty Start Date End Date Robert Giron MD [address] [facility] [address] PCP - General Family Medicine 07/24/23 Goals (unrecognized section and content) Goals may be documented in a n alternate section REASON FOR VISIT (unrecogniz ed section and content) Reason Onset Date Comments Med Refill 09/08/2023 Reason Onset Date Comments Med Refill 09/20/2023 Reason Comments Med Refill Reason Comments Consult Surgery consult Reason Comments Pre-op Exam Reason Onset Date Comments Med Refill 10/30/2023 Reason Onset Date Comments Med Refill 11/04/2023 Reason Comments Knee Pain Reason Onset Date Comments pain 06/09/2024 Reason Onset Date Comments L knee pain 06/15/2024 Reason Comments Toenail Problem Rt 2nd toe nail issu e Reason Comments Gynecologic Exam Reason Comments Ingrown Toenail B/L ingrown nails Reason Comments Pain Specialty Diagnoses / Procedures Referred By Jamal lee Referred To Contact Physical Therapy Diagnoses Arthritis of left knee Procedures MA OFFICE/OUTPATIENT NEW HIGH MDM 60 MINUTES Cj Zepeda, HEATSET WINDER OPERATOR [address] [facility] [address] [place] [address] Galo Coronado, PT [address] [place] [address] Referral ID Status Reason Start Date Expiration Date Visits Requested Visits Authorized [id number] Authorized Specialty Services Required 04/15/2024 05/16/2024 12 12 Reason Comments Pain Reason Comments Follow-up 14d s/p tpn Reason Comments Follow-up Rt pb/edl/avulsion Reason Onset Date Comments Med Refill 08/13/2024 Reason Onset Date Comments CX PT / RS for 09/0409/03/2024 Reason Onset Date Comments re: PT today 09/04/2024 Reason Onset Date Comments CX PT 09/1509/15/2024 Reason Onset Date Comments Med Refill 09/15/2024 Reason Comments controlled Reason Onset Date Comments Med Refill 09/19/2024 Reason Onset Date Comments Severe Migraine 09/24/2024 FU 09/29/2024 Source Comments (unrecognize d section and content) In the event this informatio n is protected by the Federal Confidentiality of Alcohol and Drug Abuse Patient Records regulations: The Federal rules restrict any use of the information to criminally investigate or prosecute any alcohol or drug abuse patient.[facility] FOR RECORDS PERTAINING TO PATIENTS [...] BE BASED ON THE PRIMARY CLINICAL RECORDS. [employer] provides no warranty or guarantee of the accuracy or completeness of information in this document.
== END 2024-09-29 20:37 | disposition home or self-care (01) ==
LOC: SLEEP 20:36
PROVIDERS: PCP Nurse Practitioner Adult Health; Visit Provider Nurse Practitioner Adult Health
DX: G47.33 Obstructive sleep apnea (adult) (pediatric) (principal); Z12.31 Encounter for screening mammogram for malignant neoplasm of breast; Z80.41 Family history of malignant neoplasm of ovary; G43.709 Chronic migraine without aura, not intractable, without status migrainosus; R41.89 Other symptoms and signs involving cognitive functions and awareness
CPT/HCPCS: 77063; 77067; 95810

== ENCOUNTER 2024-12-16 11:42 | Outpatient (OUT) | payer OTHER, SELFPAY ==
--- NOTE | 2024-12-16 11:55 | ECG_ITS ---
[facility] Test Date: 2024-12-16 Pat Name: ROCK HERRERA Department: Room: - Gender: Female Functional Tester: : 1970 Requested By: MELISSA ARANGO Order Number: [id number] Reading MD: FLORES AVILA M.D. Measurements Intervals Ennice Rate: 46 P: 20 CO: 156 QRS: 58 QRSD: 96 T: 28 QT: 476 QTc: 417 Interpretive Statements SINUS BRADYCARDIA LOW QRS VOLTAGE IN PRECORDIAL LEADS [QRS DEFLECTION < 1.0 mV IN CHEST LEADS] MODERATE T-WAVE ABNORMALITY, CONSIDER ANTEROLATERAL ISCHEMIA [-0.1+ mV T WAVE IN V3-V6] Compared to ECG 12/01/2023 21:09:26 No significant changes Electronically Signed On 12-16-2024 21:11:10 EDT by FLORES AVILA M.D.
[2024-12-16 12:14] LABS: Basophils Absolute Auto 0.1 10^3/uL (0.0-0.1); Basophils Percent Auto 0.6 % (0.2-2.0); Eosinophils Absolute Auto 0.2 10^3/uL (0.0-0.7); Eosinophils Percent Auto 1.5 % (0.9-7.0); Hematocrit 38.4 % (36.0-48.0); Hemoglobin 13.4 g/dL (12.0-16.0); Immature Granulocytes Abs Auto 0.04 10^3/uL (0.00-0.03); Immature Granulocytes Pct Auto 0.3 % (0.0-0.5); Lymphocytes Absolute Auto 4.1 10^3/uL (1.2-3.8); Lymphocytes Percent Auto 34.9 % (20.5-60.0); Mean Corpuscular HGB Conc 34.9 g/dL (29.9-35.2); Mean Corpuscular Hemoglobin 35.7 pg (26.7-34.0); Mean Corpuscular Volume 102.4 fL (81.0-99.0); Mean Platelet Volume 10.2 fL (9.5-13.5); Monocytes Absolute Auto 0.7 10^3/uL (0.3-0.8); Monocytes Percent Auto 5.6 % (1.7-12.0); Neutrophils Absolute Auto 6.8 10^3/uL (1.4-6.5); Neutrophils Percent Auto 57.1 % (43.0-75.0); Platelet Count 228 10^3/uL (150-450); Red Blood Count 3.75 10^6/uL (4.20-5.40); Red Cell Distribution Width 14.3 % (11.0-15.0); White Blood Count 11.9 10^3/uL (4.0-11.0)
[2024-12-16 12:54] LABS: Anion Gap 11.9; BUN Creatinine Ratio 3.1; Calcium 9.8 mg/dL (8.5-10.1); Carbon Dioxide 32.7 mmol/L (21.0-32.0); Chloride 101 mmol/L (98-107); Estimated GFR (African America >60 (>=60 mL/min/1.73m^2); Estimated GFR (Non-African Ame 59 (>=60 mL/min/1.73m^2); Glucose 119 mg/dL (74-106); Potassium 3.6 mmol/L (3.5-5.1); Sodium 142 mmol/L (136-145)
== END 2024-12-16 11:43 | disposition home or self-care (01) ==
LOC: LAB 11:45
PROVIDERS: PCP Family Medicine
DX: Z01.818 Encounter for other preprocedural examination (principal)
CPT/HCPCS: 36415; 80048; 85025; 93005

== ENCOUNTER 2024-12-20 13:01 | Emergency (ER) | payer OTHER, SELFPAY ==
[2024-12-20 13:06] VITALS: BP 132/60; PULSE 60; TEMP 36.4; O2SAT 98; BMI 26.6
--- NOTE | 2024-12-20 13:43 | ED.UPPEXIN1 ---
HPI HPI - Extremity Injury (Upper) General Chief Complaint: Extremity Injury, Upper Stated Complaint: rt shoulder pain Time Seen by Provider: 12/20/24 13:22 Source: patient Mode of arrival: walk-in Limitations: no limitations History of Present Illness HPI narrative: The patient mentioned that she was standing up yesterday when she fell backward because of her knees, she mentioned that she was not dizzy or hit her head but she fell backward hitting her right shoulder with the couch The patient is complaining of right shoulder pain Related Data Home Medications ?Medication ?Instructions ?Recorded ?Confirmed alendronate 70 mg tablet 70 mg PO QWEEK 11/05/23 12/01/23 alprazolam 1 mg tablet 1 mg PO TID PRN anxiety 11/05/23 12/01/23 aripiprazole 15 mg tablet 15 mg PO DAILY 11/05/23 12/01/23 atorvastatin 80 mg tablet 80 mg PO DAILY 11/05/23 12/01/23 calcium carbonate 600 mg PO BID 11/05/23 12/01/23 carvedilol 25 mg tablet 25 mg PO BID 11/05/23 12/01/23 cetirizine 10 mg tablet 10 mg PO DAILY 11/05/23 12/01/23 cyclobenzaprine 10 mg tablet 10 mg PO Q8H PRN spasms 11/05/23 12/01/23 tramadol 50 mg tablet 50 mg PO Q6H 04/19/24 04/19/24 Allergies Allergy/AdvReac Type Severity Reaction Status Date / Time Iodinated Contrast Media Allergy Severe shortness Verified 12/20/24 13:12 of breath adhesive tape Allergy Blister Verified 06/09/24 23:39 amitriptyline Allergy Hives Verified 06/09/24 23:39 amoxicillin Allergy Anaphylaxis Verified 06/09/24 23:39 atomoxetine (From Strattera) Allergy Agitated Verified 06/09/24 23:39 bupropion (From Wellbutrin) Allergy Hives Verified 06/09/24 23:39 codeine Allergy Hives Verified 06/09/24 23:39 dexamethasone Allergy Hives Verified 06/09/24 23:39 divalproex sodium (From Allergy Hives Verified 06/09/24 23:39 Depakote) duloxetine (From Cymbalta) Allergy Hives Verified 06/09/24 23:39 fluticasone (From Advair Allergy Anaphylaxis Verified 06/09/24 23:39 Diskus) gabapentin Allergy Anaphylaxis Verified 06/09/24 23:39 ibuprofen Allergy Anaphylaxis Verified 06/09/24 23:39 ketorolac (From Toradol) Allergy Anaphylaxis Verified 06/09/24 23:39 meloxicam (From Mobic) Allergy Anaphylaxis Verified 06/09/24 23:39 methadone Allergy Anaphylaxis Verified 06/09/24 23:39 milnacipran (From Savella) Allergy Anaphylaxis Verified 06/09/24 23:39 nitrofurantoin (From Allergy Anaphylaxis Verified 06/09/24 23:39 Macrobid) paroxetine (From Paxil) Allergy Confusion Verified 06/09/24 23:39 Penicillins Allergy Altered Verified 06/09/24 23:39 Sense of Taste pregabalin (From Lyrica) Allergy Anxiety Verified 06/09/24 23:39 ropinirole (From Requip) Allergy Hives Verified 06/09/24 23:39 salmeterol (From Advair Allergy Hives Verified 06/09/24 23:39 Diskus) topiramate (From Topamax) Allergy Hives Verified 06/09/24 23:39 ziprasidone Allergy Hives Verified 06/09/24 23:39 fish Allergy Anaphylaxis Uncoded 06/09/24 23:39 Opioid HPI Opioid Management Most Recent Pain and Opioid Data: Last Pain Scale 10 Today, 13:51 Last MAR Pain Assessment Today, 13:51 Ur Phencyclidine Scrn, (NEGATIVE) Negative 09/20/23, 08:52 Review of Systems ROS Status of ROS 10 or more systems reviewed and unremarkable except as noted in history and below PFSH PFSH Social History Smoking status: Never smoker Little interest or pleasure in doing things: not at all Feeling down, depressed, or hopeless: not at all Exam Narrative Exam Narrative: Nurses notes and vital signs reviewed and patient is not hypoxic. General: Well-appearing and in no apparent distress. Skin: Warm, dry, no pallor noted. No rash. Head: Normocephalic, atraumatic. Neck: Supple, non-tender. Cardiovascular: Regular Rate and Rhythm without murmur, gallop or rub. Respiratory: No accessory muscle use or respiratory distress. Upper extremity exam: The patient have tenderness upon palpation of the anterior of the right shoulder in addition to tenderness upon palpation of the lateral aspect of the shoulder there is no skin changes and the patient have limitation of abduction and flexion at 90 degrees. No vascular injury detected with a good radial pulse on the right side Neurological: A&O x4. No cranial nerve dysfunction observed. No truncal ataxia. Moves all extremities. Sensation intact. Psychiatric: Cooperative and interactive. Normal mood and affect. Constitutional Vital Signs, click to edit/add: Last Vital Signs Temp 97.6 F 12/20/24 13:06 Pulse 60 12/20/24 13:06 Resp 20 12/20/24 13:06 BP 132/60 12/20/24 13:06 Pulse Ox 98 12/20/24 13:06 O2 Del Method Room Air 12/20/24 13:06 Course Vital Signs Vital signs: Vital Signs Temperature 97.6 F 12/20/24 13:06 Pulse Rate 60 12/20/24 13:06 Respiratory Rate 20 12/20/24 13:06 Blood Pressure 132/60 12/20/24 13:06 Pulse Oximetry 98 12/20/24 13:06 Oxygen Delivery Method Room Air 12/20/24 13:06 Temperature 97.6 F 12/20/24 13:06 Pulse Rate 60 12/20/24 13:06 Respiratory Rate 20 12/20/24 13:06 Blood Pressure 132/60 12/20/24 13:06 Pulse Oximetry 98 12/20/24 13:06 Oxygen Delivery Method Room Air 12/20/24 13:06 MDM - Extremity Injury (Upper) MDM Narrative Medical decision making narrative: The patient x-ray of the right shoulder showed no acute pathology Patient already had Percocet at home she was provided with a sling and instructed to follow-up with orthopedic as outpatient Presentation could be secondary to contusion or rotator cuff injury The patient is to follow up with primary care physician in next 2-3 days or to return to the emergency department should any of the signs or symptoms worsen or new symptoms develop. The patient agrees with the following Diagnosis and Treatment plan and the patient will be discharged home. Discharge Plan Discharge Chief Complaint: Extremity Injury, Upper Clinical Impression: Contusion of right shoulder, Rotator cuff (capsule) sprain Patient Disposition: Home, Self-Care Time of Disposition Decision: 13:46 Condition: Good Prescriptions / Home Meds: No Action alendronate 70 mg tablet 70 mg PO QWEEK alprazolam 1 mg tablet 1 mg PO TID PRN (Reason: anxiety) aripiprazole 15 mg tablet 15 mg PO DAILY atorvastatin 80 mg tablet 80 mg PO DAILY calcium carbonate 600 mg calcium (1,500 mg) tablet 600 mg PO BID carvedilol 25 mg tablet 25 mg PO BID cetirizine 10 mg tablet 10 mg PO DAILY cyclobenzaprine 10 mg tablet 10 mg PO Q8H PRN (Reason: spasms) tramadol 50 mg tablet 50 mg PO Q6H Print Language: Hebrew Instructions: Contusion in Adults (ED) Referrals: IVON GIRON [Primary Care Provider, Family Practice] - 1 week Discharge Date/Time: 12/20/24 13:54
[2024-12-20] MEDS: OXYCODONE HCL/ACETAMINOPHEN 5MG/325MG 1 TAB PO (13:51)
== END 2024-12-20 13:54 | disposition home or self-care (01) ==
PROVIDERS: Emergency Provider Emergency Medicine; PCP Family Medicine
DX: S43.421A Sprain of right rotator cuff capsule, initial encounter (principal); S40.011A Contusion of right shoulder, initial encounter; W18.39XA Other fall on same level, initial encounter
CPT/HCPCS: 73030; 99283

== ENCOUNTER 2025-02-09 20:06 | Emergency (ER) | payer OTHER, SELFPAY ==
[2025-02-09] VITALS (17 sets, daily range): BP systolic 105–127; BP diastolic 49–66; PULSE 50; TEMP 36.9; O2SAT 92–100; BMI 25.7
--- NOTE | 2025-02-09 21:02 | PC.NURSE ---
jocelyneus patient ambulated well to room # 11, this patient complains of diarrhea for the past couple days and last night nausea and vomiting. this patient's grand daughter is here in the room with patient. tis patient voices no other concerns and shows no signs of distress
--- NOTE | 2025-02-09 21:34 | ED.GENADUL1 ---
HPI HPI - General Adult General Chief complaint: Nausea/Vomiting/Diarrhea Stated complaint: nausea/vomiting/diarrhea Time Seen by Provider: 02/09/25 21:33 Source: patient Mode of arrival: walk-in Limitations: no limitations History of Present Illness HPI narrative: This 54-year-old female presents chief complaint of diarrhea for the last 8 days and vomiting for the last 1 day. She reports pain all over. She is status post cholecystectomy, appendectomy and partial hysterectomy and has only 1 ovary left. She does not report chills or fever or urinary symptoms. Related Data Home Medications ?Medication ?Instructions ?Recorded ?Confirmed alendronate 70 mg tablet 70 mg PO QWEEK 11/05/23 02/09/25 alprazolam 1 mg tablet 1 mg PO TID PRN anxiety 11/05/23 02/09/25 aripiprazole 15 mg tablet 15 mg PO DAILY 11/05/23 02/09/25 atorvastatin 80 mg tablet 80 mg PO DAILY 11/05/23 02/09/25 calcium carbonate 600 mg PO BID 11/05/23 02/09/25 carvedilol 25 mg tablet 25 mg PO BID 11/05/23 02/09/25 cetirizine 10 mg tablet 10 mg PO DAILY 11/05/23 02/09/25 albuterol sulfate 90 mcg/actuation inhalation 02/09/25 aerosol inhaler blood sugar diagnostic ([facility] 02/09/25 02/09/25 Ultra Test strips) diltiazem HCl 120 mg mg PO 02/09/25 capsule,extended release 24 hr ergocalciferol (vitamin D2) 1,250 02/09/25 mcg (50,000 unit) capsule furosemide 20 mg tablet mg 02/09/25 lidocaine 5 % topical ointment 02/09/25 loperamide 2 mg capsule mg 02/09/25 metformin 500 mg tablet mg 02/09/25 mirabegron 50 mg tablet,extended mg PO 02/09/25 release 24 hr (Myrbetriq) montelukast 10 mg tablet mg 02/09/25 nabumetone 500 mg tablet mg 02/09/25 omeprazole 40 mg capsule,delayed mg 02/09/25 release ondansetron 4 mg disintegrating mg 02/09/25 tablet oxycodone-acetaminophen 10 mg-325 tab 02/09/25 mg tablet solifenacin 10 mg tablet mg PO 02/09/25 thiamine mononitrate (vit B1) 100 mg 02/09/25 mg tablet (Vitamin B-1 (mononitrate)) Previous Rx's ?Medication ?Instructions ?Recorded ondansetron 4 mg disintegrating 4 mg PO Q6H PRN nausea and 02/10/25 tablet vomiting #10 tabs Allergies Allergy/AdvReac Type Severity Reaction Status Date / Time Iodinated Contrast Media Allergy Severe shortness Verified 02/09/25 20:17 of breath adhesive tape Allergy Blister Verified 02/09/25 20:17 amitriptyline Allergy Hives Verified 02/09/25 20:17 amoxicillin Allergy Anaphylaxis Verified 02/09/25 20:17 atomoxetine (From Strattera) Allergy Agitated Verified 02/09/25 20:17 bupropion (From Wellbutrin) Allergy Hives Verified 02/09/25 20:17 codeine Allergy Hives Verified 02/09/25 20:17 dexamethasone Allergy Hives Verified 02/09/25 20:17 divalproex sodium (From Allergy Hives Verified 02/09/25 20:17 Depakote) duloxetine (From Cymbalta) Allergy Hives Verified 02/09/25 20:17 fluticasone (From Advair Allergy Anaphylaxis Verified 02/09/25 20:17 Diskus) gabapentin Allergy Anaphylaxis Verified 02/09/25 20:17 ibuprofen Allergy Anaphylaxis Verified 02/09/25 20:17 ketorolac (From Toradol) Allergy Anaphylaxis Verified 02/09/25 20:17 meloxicam (From Mobic) Allergy Anaphylaxis Verified 02/09/25 20:17 methadone Allergy Anaphylaxis Verified 02/09/25 20:17 milnacipran (From Savella) Allergy Anaphylaxis Verified 02/09/25 20:17 nitrofurantoin (From Allergy Anaphylaxis Verified 02/09/25 20:17 Macrobid) paroxetine (From Paxil) Allergy Confusion Verified 02/09/25 20:17 Penicillins Allergy Altered Verified 02/09/25 20:17 Sense of Taste pregabalin (From Lyrica) Allergy Anxiety Verified 02/09/25 20:17 ropinirole (From Requip) Allergy Hives Verified 02/09/25 20:17 salmeterol (From Advair Allergy Hives Verified 02/09/25 20:17 Diskus) topiramate (From Topamax) Allergy Hives Verified 02/09/25 20:17 ziprasidone Allergy Hives Verified 02/09/25 20:17 fish Allergy Anaphylaxis Uncoded 02/09/25 20:17 Opioid HPI Opioid Management Most Recent Opioid Data: Last Pain Scale 4 Today, 00:43 Last ED Pain Assessment Today, 00:43 Ur Phencyclidine Scrn, (NEGATIVE) Negative 09/20/23, 08:52 Review of Systems ROS Status of ROS 10 or more systems reviewed and unremarkable except as noted in history and below PFSH PFS Social History Smoking status: Never smoker Little interest or pleasure in doing things: not at all Feeling down, depressed, or hopeless: not at all Exam Narrative Exam Narrative: Mildly ill-appearing with fairly stable vital signs and bradycardia with a heart rate of 52 bpm. HEENT exam is normal to inspection. Neck is supple. Lung sounds are clear to auscultation bilaterally with good air entry. Heart has regular rate and rhythm. Abdomen is protuberant and soft. She does not have any significant tenderness and tolerates deep palpation in all quadrants. She does not have peritoneal signs and there is no fluid wave or organomegaly. She moves all extremities actively. Speech and mentation are clear and intact. There is no facial asymmetry. Constitutional Vital Signs, click to edit/add: Last Vital Signs Temp 98.7 F 02/10/25 00:42 Pulse 52 L 02/10/25 00:42 Resp 19 02/10/25 00:42 BP 118/76 02/10/25 00:42 Pulse Ox 98 02/10/25 00:42 O2 Del Method Room Air 02/09/25 20:12 Course Vital Signs Vital signs: Vital Signs Temperature 98.4 F 02/09/25 20:12 Pulse Rate 50 L 02/09/25 20:12 Respiratory Rate 14 02/09/25 20:12 Blood Pressure 122/58 02/09/25 20:12 Pulse Oximetry 100 02/09/25 20:12 Oxygen Delivery Method Room Air 02/09/25 20:12 Temperature 98.7 F 02/10/25 00:42 Pulse Rate 52 L 02/10/25 00:42 Respiratory Rate 19 02/10/25 00:42 Blood Pressure 118/76 02/10/25 00:42 Pulse Oximetry 98 02/10/25 00:42 Oxygen Delivery Method Room Air 02/09/25 20:12 Medical Decision Making MDM Narrative Medical decision making narrative: Patient presents with a history of diarrhea and vomiting. She has white count 11.6 which is not felt to be significant. Electrolytes are normal. Her BUN was quite low at 4 and this follows the usual trend that she has from previous labs also creatinine is normal 0.92. Urine had a low specific gravity with no sign of infection. CT scan of the abdomen pelvis was nondiagnostic for any acute inflammatory pathology or other acute condition. Patient was treated with IV fluids and IV Zofran. She requested something for her generalized pain and was given morphine 2 mg IV. Upon discharge she is felt stable for discharge and is prescribed Zofran for nausea and vomiting as needed. She is to seek early follow-up with her PCP and may return anytime for worsening symptoms. Lab Data Labs: Lab Results 02/09/25 02/09/25 Range/Units 21:55 22:05 WBC 11.6 H (4.0-11.0) 10^3/uL RBC 3.65 L (4.20-5.40) 10^6/uL Hgb 13.6 (12.0-16.0) g/dL Hct 38.4 (36.0-48.0) % MCV 105.2 H (81.0-99.0) fL MCH 37.3 H (26.7-34.0) pg MCHC 35.4 H (29.9-35.2) g/dL RDW 13.6 (11.0-15.0) % Plt Count 219 (150-450) 10^3/uL MPV 10.9 (9.5-13.5) fL Neut % (Auto) 55.2 (43.0-75.0) % Lymph % (Auto) 37.2 (20.5-60.0) % [place] % (Auto) 6.1 (1.7-12.0) % Eos % (Auto) 0.4 L (0.9-7.0) % Baso % (Auto) 0.8 (0.2-2.0) % Neut # (Auto) 6.4 (1.4-6.5) 10^3/uL Lymph # (Auto) 4.3 H (1.2-3.8) 10^3/uL [place] # (Auto) 0.7 (0.3-0.8) 10^3/uL Eos # (Auto) 0.1 (0.0-0.7) 10^3/uL Baso # (Auto) 0.1 (0.0-0.1) 10^3/uL Abs Immat Gran (auto) 0.03 (0.00-0.03) 10^3/uL Imm/Tot Granulo (auto) 0.3 (0.0-0.5) % Sodium 142 (136-145) mmol/L Potassium 3.6 (3.5-5.1) mmol/L Chloride 104 (98-107) mmol/L Carbon Dioxide 30.7 (21.0-32.0) mmol/L Anion Gap 10.9 BUN 4.0 L (7.0-18.0) mg/dL Creatinine 0.92 (0.55-1.02) mg/dL Est GFR ( Amer) >60 (>=60 mL/min/1.73m^2) Est GFR (Non-Af Amer) >60 (>=60 mL/min/1.73m^2) BUN/Creatinine Ratio 4.3 Glucose 82 (74-106) mg/dL Calcium 9.7 (8.5-10.1) mg/dL Total Bilirubin 0.5 (0.2-1.0) mg/dL AST 19 (15-37) U/L ALT 17 (14-59) U/L Alkaline Phosphatase 103 (46-116) U/L Total Protein 7.3 (6.4-8.2) g/dL Albumin 3.4 (3.4-5.0) g/dL Globulin 3.9 g/dL Albumin/Globulin Ratio 0.9 Lipase 21.0 (16.0-77.0) U/L Urine Color Lt. yellow (YELLOW) Urine Clarity Clear (CLEAR) Urine pH 6.0 (5.0-9.0) Ur Specific [place] <=1.005 A (1.005-1.025) Urine Protein Negative (NEG/TRACE) mg/dL Urine Glucose (UA) Negative (NEGATIVE) mg/dL Urine Ketones Negative (NEGATIVE) mg/dL Urine Occult Blood Negative (NEGATIVE) Urine Nitrite Negative (NEGATIVE) Urine Bilirubin Negative (NEGATIVE) Urine Urobilinogen 0.2 (0.2-1.0) EU/dL Ur Leukocyte Esterase Negative (NEGATIVE) Discharge Plan Discharge Chief Complaint: Nausea/Vomiting/Diarrhea Clinical Impression: Nausea, vomiting, and diarrhea Patient Disposition: Home, Self-Care Time of Disposition Decision: 00:30 Condition: Good Mode of Transportation: Private Vehicle Prescriptions / Home Meds: New ondansetron 4 mg tablet,disintegrating 4 mg PO Q6H PRN (Reason: nausea and vomiting) Qty: 10 0RF No Action metformin 500 mg tablet loperamide 2 mg capsule (DME) OneTouch Ultra Test Strip MISCELLANEOUS omeprazole 40 mg capsule,delayed release(DR/EC) oxycodone-acetaminophen 10-325 mg tablet diltiazem HCl 120 mg capsule,extended release 24hr PO montelukast 10 mg tablet furosemide 20 mg tablet ergocalciferol (vitamin D2) 1,250 mcg (50,000 unit) capsule albuterol sulfate 90 mcg/actuation HFA aerosol inhaler INHALATION ondansetron 4 mg tablet,disintegrating nabumetone 500 mg tablet solifenacin 10 mg tablet PO thiamine mononitrate (vit B1) [Vitamin B-1 (mononitrate)] 100 mg tablet lidocaine 5 % ointment mirabegron [Myrbetriq] 50 mg tablet extended release 24 hr PO alendronate 70 mg tablet 70 mg PO QWEEK alprazolam 1 mg tablet 1 mg PO TID PRN (Reason: anxiety) aripiprazole 15 mg tablet 15 mg PO DAILY atorvastatin 80 mg tablet 80 mg PO DAILY calcium carbonate 600 mg calcium (1,500 mg) tablet 600 mg PO BID carvedilol 25 mg tablet 25 mg PO BID cetirizine 10 mg tablet 10 mg PO DAILY Print Language: Arabic Instructions: Acute Nausea and Vomiting (ED) Additional Instructions: Liquid diet for 24 hours. Advance diet as tolerated. Return for worsening symptoms. Referrals: IVON GIRON [Primary Care Provider, Family Practice] - As soon as possible Discharge Date/Time: 02/10/25 00:49
[2025-02-09 22:18] LABS: Bilirubin Urine NEGATIVE (NEGATIVE); Blood Urine NEGATIVE (NEGATIVE); Clarity Urine CLEAR (CLEAR); Color Urine LT. YELLOW (YELLOW); Glucose Urine UA NEGATIVE (NEGATIVE); Ketones Urine NEGATIVE (NEGATIVE); Leukocyte Esterase Urine NEGATIVE (NEGATIVE); Nitrite Urine NEGATIVE (NEGATIVE); Protein Urine NEGATIVE (NEG/TRACE); Specific Gravity Urine <=1.005 (1.005-1.025); Urobilinogen Urine 0.2 EU/dL (0.2-1.0)
[2025-02-09 22:23] LABS: Urine Microscopic Indicated NO
[2025-02-09 22:24] LABS: Basophils Absolute Auto 0.1 10^3/uL (0.0-0.1); Basophils Percent Auto 0.8 % (0.2-2.0); Eosinophils Absolute Auto 0.1 10^3/uL (0.0-0.7); Eosinophils Percent Auto 0.4 % (0.9-7.0); Hematocrit 38.4 % (36.0-48.0); Hemoglobin 13.6 g/dL (12.0-16.0); Immature Granulocytes Abs Auto 0.03 10^3/uL (0.00-0.03); Immature Granulocytes Pct Auto 0.3 % (0.0-0.5); Lymphocytes Absolute Auto 4.3 10^3/uL (1.2-3.8); Lymphocytes Percent Auto 37.2 % (20.5-60.0); Mean Corpuscular HGB Conc 35.4 g/dL (29.9-35.2); Mean Corpuscular Hemoglobin 37.3 pg (26.7-34.0); Mean Corpuscular Volume 105.2 fL (81.0-99.0); Mean Platelet Volume 10.9 fL (9.5-13.5); Monocytes Absolute Auto 0.7 10^3/uL (0.3-0.8); Monocytes Percent Auto 6.1 % (1.7-12.0); Neutrophils Absolute Auto 6.4 10^3/uL (1.4-6.5); Neutrophils Percent Auto 55.2 % (43.0-75.0); Platelet Count 219 10^3/uL (150-450); Red Blood Count 3.65 10^6/uL (4.20-5.40); Red Cell Distribution Width 13.6 % (11.0-15.0); White Blood Count 11.6 10^3/uL (4.0-11.0)
[2025-02-09] MEDS: 0.9 % SODIUM CHLORIDE 1,000 ML 1000 ML IV (22:26)
[2025-02-09] MEDS: ONDANSETRON PF 4 MG/2 ML VIAL IV (22:27)
[2025-02-09 22:38] LABS: Alanine Aminotransferase 17 U/L (14-59); Albumin Globulin Ratio 0.9; Albumin Level 3.4 g/dL (3.4-5.0); Alkaline Phosphatase 103 U/L (46-116); Anion Gap 10.9; Aspartate Amino Transferase 19 U/L (15-37); BUN Creatinine Ratio 4.3; Bilirubin Total 0.5 mg/dL (0.2-1.0); Calcium 9.7 mg/dL (8.5-10.1); Carbon Dioxide 30.7 mmol/L (21.0-32.0); Chloride 104 mmol/L (98-107); Estimated GFR (African America >60 (>=60 mL/min/1.73m^2); Estimated GFR (Non-African Ame >60 (>=60 mL/min/1.73m^2); Globulin 3.9 g/dL; Glucose 82 mg/dL (74-106); Potassium 3.6 mmol/L (3.5-5.1); Sodium 142 mmol/L (136-145); Total Protein 7.3 g/dL (6.4-8.2)
[2025-02-09] MEDS: MORPHINE SULFATE 2 MG/ML SYRINGE IV (23:08)
[2025-02-10] VITALS: BP 98/56; O2SAT 93
[2025-02-10 00:10] VITALS: O2SAT 92
[2025-02-10 00:20] VITALS: O2SAT 91
[2025-02-10 00:30] VITALS: BP 109/66; O2SAT 98
[2025-02-10 00:42] VITALS: BP 118/76; PULSE 52; TEMP 37.1; O2SAT 98
--- NOTE | 2025-02-10 00:47 | PC.NURSE ---
i gave this patient verbal and written discharge orders and 1 e-script and this patient voices yes to understanding these. at time of discharge this patient voices no concerns or needs and shows no signs of distress
== END 2025-02-10 00:49 | disposition home or self-care (01) ==
PROVIDERS: Emergency Provider Emergency Medicine; PCP Family Medicine
DX: R11.2 Nausea with vomiting, unspecified (principal); R19.7 Diarrhea, unspecified; Z90.49 Acquired absence of other specified parts of digestive tract; Z90.711 Acquired absence of uterus with remaining cervical stump; Z90.721 Acquired absence of ovaries, unilateral
CPT/HCPCS: 36415; 74176; 80053; 81003; 83690; 85025; 96361; 96374; 96375; 99285; J2270; J2405

== ENCOUNTER 2025-02-12 18:05 | Emergency (ER) | payer OTHER, SELFPAY ==
[2025-02-12] VITALS (7 sets, daily range): BP systolic 111–133; BP diastolic 48–62; PULSE 52–55; TEMP 36.9; O2SAT 95–98; BMI 25.7
--- NOTE | 2025-02-12 18:19 | XR_ITS ---
The [address] [address] Patient Name: ROCK HERRERA MRN: [facility]:[id number] date: 1970 Sex: F Assigned Patient Location: ED.MAIN Current Patient Location: ED.MAIN Accession/Order Number: [id number] Exam Date: 02/12/2025 19:11 Report Date: 02/12/2025 19:12 At the request of: TUTU NOLASCO MD Procedure: XR chest 1V PA CHEST: CLINICAL HISTORY: CP COMPARISON: 09/20/2023 FINDINGS: Unremarkable cardiomediastinal. Lungs clear. No effusion or pneumothorax. XR/XR chest 1V IMPRESSION: Negative acute pleural-parenchymal disease Impression dictated by: Jose J Chavira M.D. 02/12/2025 7:12 PM Dictation Location: [place] [address] Electronically authenticated by: [id number] Y Date: 02/12/2025 19:12
--- NOTE | 2025-02-12 18:19 | ECG_ITS ---
The [facility] Test Date: 2025-02-12 Pat Name: ROCK HERRERA Department: Room: - Gender: Female [address] [employer] [address]: : 1970 Requested By: [id number] Order Number: [id number] Reading MD: FLORES AVILA M.D. Measurements Intervals [place] Rate: 49 P: 21 WA: 132 QRS: 28 QRSD: 82 T: -30 QT: 478 QTc: 449 Interpretive Statements 1130 Sinus bradycardia 4164 Twave abnormality, possible anterior ischemia 9150 abnormal ECG Compared to ECG 12/16/2024 11:57:56 T-wave abnormality no longer present Possible ischemia still present Electronically Signed On 02-13-2025 12:05:27 EDT by FLORES AVILA M.D.
--- NOTE | 2025-02-12 18:20 | ED.GENADUL1 ---
HPI HPI - General Adult General Chief complaint: Chest Pain Stated complaint: chest pains Time Seen by Provider: 02/12/25 18:14 Source: patient Mode of arrival: walk-in Limitations: no limitations History of Present Illness HPI narrative: 54-year-old female presents for chest pain. It was there the entire morning until she took a nap in the afternoon when it seemed to go away. After she woke up it seemed to come back. She points to the chest just to the left of midline. No trauma or injury. No fever or cough or back pain. She states she has had a minor heart attack years ago and had a heart catheterization for 5 years ago and they did not find anything. Related Data Home Medications ?Medication ?Instructions ?Recorded ?Confirmed alendronate 70 mg tablet 70 mg PO QWEEK 11/05/23 02/09/25 alprazolam 1 mg tablet 1 mg PO TID PRN anxiety 11/05/23 02/09/25 aripiprazole 15 mg tablet 15 mg PO DAILY 11/05/23 02/09/25 atorvastatin 80 mg tablet 80 mg PO DAILY 11/05/23 02/09/25 calcium carbonate 600 mg PO BID 11/05/23 02/09/25 carvedilol 25 mg tablet 25 mg PO BID 11/05/23 02/09/25 cetirizine 10 mg tablet 10 mg PO DAILY 11/05/23 02/09/25 albuterol sulfate 90 mcg/actuation inhalation 02/09/25 aerosol inhaler blood sugar diagnostic (OneTouch 02/09/25 02/09/25 Ultra Test strips) diltiazem HCl 120 mg mg PO 02/09/25 capsule,extended release 24 hr ergocalciferol (vitamin D2) 1,250 02/09/25 mcg (50,000 unit) capsule furosemide 20 mg tablet mg 02/09/25 lidocaine 5 % topical ointment 02/09/25 loperamide 2 mg capsule mg 02/09/25 metformin 500 mg tablet mg 02/09/25 mirabegron 50 mg tablet,extended mg PO 02/09/25 release 24 hr (Myrbetriq) montelukast 10 mg tablet mg 02/09/25 nabumetone 500 mg tablet mg 02/09/25 omeprazole 40 mg capsule,delayed mg 02/09/25 release ondansetron 4 mg disintegrating mg 02/09/25 tablet oxycodone-acetaminophen 10 mg-325 tab 02/09/25 mg tablet solifenacin 10 mg tablet mg PO 02/09/25 thiamine mononitrate (vit B1) 100 mg 02/09/25 mg tablet (Vitamin B-1 (mononitrate)) Previous Rx's ?Medication ?Instructions ?Recorded ondansetron 4 mg disintegrating 4 mg PO Q6H PRN nausea and 02/10/25 tablet vomiting #10 tabs Allergies Allergy/AdvReac Type Severity Reaction Status Date / Time Iodinated Contrast Media Allergy Severe shortness Verified 02/09/25 20:17 of breath adhesive tape Allergy Blister Verified 02/09/25 20:17 amitriptyline Allergy Hives Verified 02/09/25 20:17 amoxicillin Allergy Anaphylaxis Verified 02/09/25 20:17 atomoxetine (From Strattera) Allergy Agitated Verified 02/09/25 20:17 bupropion (From Wellbutrin) Allergy Hives Verified 02/09/25 20:17 codeine Allergy Hives Verified 02/09/25 20:17 dexamethasone Allergy Hives Verified 02/09/25 20:17 divalproex sodium (From Allergy Hives Verified 02/09/25 20:17 Depakote) duloxetine (From Cymbalta) Allergy Hives Verified 02/09/25 20:17 fluticasone (From Advair Allergy Anaphylaxis Verified 02/09/25 20:17 Diskus) gabapentin Allergy Anaphylaxis Verified 02/09/25 20:17 ibuprofen Allergy Anaphylaxis Verified 02/09/25 20:17 ketorolac (From Toradol) Allergy Anaphylaxis Verified 02/09/25 20:17 meloxicam (From Mobic) Allergy Anaphylaxis Verified 02/09/25 20:17 methadone Allergy Anaphylaxis Verified 02/09/25 20:17 milnacipran (From Savella) Allergy Anaphylaxis Verified 02/09/25 20:17 nitrofurantoin (From Allergy Anaphylaxis Verified 02/09/25 20:17 Macrobid) paroxetine (From Paxil) Allergy Confusion Verified 02/09/25 20:17 Penicillins Allergy Altered Verified 02/09/25 20:17 Sense of Taste pregabalin (From Lyrica) Allergy Anxiety Verified 02/09/25 20:17 ropinirole (From Requip) Allergy Hives Verified 02/09/25 20:17 salmeterol (From Advair Allergy Hives Verified 02/09/25 20:17 Diskus) topiramate (From Topamax) Allergy Hives Verified 02/09/25 20:17 ziprasidone Allergy Hives Verified 02/09/25 20:17 fish Allergy Anaphylaxis Uncoded 02/09/25 20:17 Opioid HPI Opioid Management Most Recent Opioid Data: Last Pain Scale 6 Today, 18:13 Last ED Pain Assessment 02/10/25, 00:43 Ur Phencyclidine Scrn, (NEGATIVE) Negative 09/20/23, 08:52 Review of Systems ROS Narrative A ten point review of systems is negative except as noted above. PFSH PFSH Social History Smoking status: Never smoker Little interest or pleasure in doing things: not at all Feeling down, depressed, or hopeless: not at all Exam Narrative Exam Narrative: Nurses note and vital signs reviewed and patient is not hypoxic. General: The patient appears in no apparent distress. Patient is resting comfortably on cart. Skin: Warm, dry, no pallor noted. There is no rash noted. Head: Normocephalic, atraumatic Eye: Normal conjunctiva, no drainage Ears, Nose, Mouth, and Throat: oral mucosa is moist. Nares patent. Cardiovascular: Regular Rate and Rhythm Respiratory: Patient is in no distress, no accessory muscle use, lungs are clear to auscultation, no wheezing, rales or rhonchi Back: non-tender GI: Soft and nontender Musculoskeletal: The patient has no evidence of calf tenderness, no pitting edema, symmetrical pulses noted bilaterally Neurological: A&O, normal speech Psychiatric: Cooperative Constitutional Vital Signs, click to edit/add: Last Vital Signs Temp 98.5 F 02/12/25 18:13 Pulse 53 L 02/12/25 18:13 Resp 16 02/12/25 18:13 BP 133/62 02/12/25 18:13 Pulse Ox 96 02/12/25 18:13 O2 Del Method Room Air 02/12/25 18:13 Course Vital Signs Vital signs: Vital Signs Temperature 98.5 F 02/12/25 18:13 Pulse Rate 53 L 02/12/25 18:13 Respiratory Rate 16 02/12/25 18:13 Blood Pressure 133/62 02/12/25 18:13 Pulse Oximetry 96 02/12/25 18:13 Oxygen Delivery Method Room Air 02/12/25 18:13 Temperature 98.5 F 02/12/25 18:13 Pulse Rate 53 L 02/12/25 18:13 Respiratory Rate 16 02/12/25 18:13 Blood Pressure 133/62 02/12/25 18:13 Pulse Oximetry 96 02/12/25 18:13 Oxygen Delivery Method Room Air 02/12/25 18:13 Medical Decision Making MDM Narrative Medical decision making narrative: Tests are ordered and the patient is signed out to Dr. Potter at change of shift. ECG Data Attestation: I personally reviewed and interpreted this ECG as follows: (EKG on my interpretation shows sinus rhythm with rate 49 and no acute change) Discharge Plan Discharge Patient Disposition: Still a Patient
[2025-02-12 18:32] LABS: Basophils Absolute Auto 0.1 10^3/uL (0.0-0.1); Basophils Percent Auto 0.6 % (0.2-2.0); Eosinophils Percent Auto 0.4 % (0.9-7.0); Hematocrit 35.6 % (36.0-48.0); Hemoglobin 12.6 g/dL (12.0-16.0); Immature Granulocytes Abs Auto 0.04 10^3/uL (0.00-0.03); Immature Granulocytes Pct Auto 0.4 % (0.0-0.5); Lymphocytes Absolute Auto 2.7 10^3/uL (1.2-3.8); Lymphocytes Percent Auto 25.4 % (20.5-60.0); Mean Corpuscular HGB Conc 35.4 g/dL (29.9-35.2); Mean Corpuscular Hemoglobin 37.1 pg (26.7-34.0); Mean Corpuscular Volume 104.7 fL (81.0-99.0); Mean Platelet Volume 10.3 fL (9.5-13.5); Monocytes Absolute Auto 0.7 10^3/uL (0.3-0.8); Monocytes Percent Auto 6.7 % (1.7-12.0); Neutrophils Percent Auto 66.5 % (43.0-75.0); Platelet Count 227 10^3/uL (150-450); Red Cell Distribution Width 13.5 % (11.0-15.0); White Blood Count 10.6 10^3/uL (4.0-11.0)
[2025-02-12 18:55] LABS: Anion Gap 11.1; BUN Creatinine Ratio 6.9; Calcium 10.1 mg/dL (8.5-10.1); Carbon Dioxide 31.4 mmol/L (21.0-32.0); Chloride 101 mmol/L (98-107); Estimated GFR (African America >60 (>=60 mL/min/1.73m^2); Estimated GFR (Non-African Ame >60 (>=60 mL/min/1.73m^2); Glucose 106 mg/dL (74-106); Potassium 3.5 mmol/L (3.5-5.1); Sodium 140 mmol/L (136-145)
[2025-02-12 19:09] LABS: Troponin I High Sensitivity 4.7 pg/mL (4.0-51.3)
[2025-02-12 19:14] LABS: D Dimer 0.75 mg/L FEU (<=0.59)
[2025-02-12] MEDS: HYDROCODONE/ACET 5-325 MG TABLET 1 TAB PO (19:40)
== END 2025-02-12 19:55 | disposition home or self-care (01) ==
PROVIDERS: Emergency Provider Emergency Medicine; PCP Family Medicine
DX: R07.9 Chest pain, unspecified (principal); I25.2 Old myocardial infarction
CPT/HCPCS: 36415; 71045; 80048; 84484; 85025; 85378; 93005; 99285

== ENCOUNTER 2025-03-09 13:24 | Emergency (ER) | payer OTHER, SELFPAY ==
[2025-03-09 13:33] VITALS: BP 148/70; PULSE 51; TEMP 36.6; O2SAT 99; BMI 26.1
[2025-03-09 13:57] VITALS: PULSE 52
--- NOTE | 2025-03-09 15:03 | ED.LOWEXI1 ---
HPI HPI - Extremity Injury (Lower) General Chief Complaint: Extremity Problem, Nontraumatic Stated Complaint: lower extremity pain Time Seen by Provider: 03/09/25 13:43 Source: patient Mode of arrival: walk-in Limitations: no limitations History of Present Illness HPI Narrative: The patient is a 54-year-old female who is coming to the ER after she was just evaluated by her orthopedic surgeon for left knee pain, the patient have a chronic knee pain with history of severe osteoarthritis requiring surgery in couple weeks but she still did not do her clearance, patient denies any fall or trauma she is coming to the ER with this we will request of pain medication The pain has been severe and she has not been able to ambulate properly with a She could not reach her primary care doctor until next week Related Data Home Medications �Medication �Instructions �Recorded �Confirmed alendronate 70 mg tablet 70 mg PO QWEEK 11/05/23 02/09/25 alprazolam 1 mg tablet 1 mg PO TID PRN anxiety 11/05/23 02/09/25 aripiprazole 15 mg tablet 15 mg PO DAILY 11/05/23 02/09/25 atorvastatin 80 mg tablet 80 mg PO DAILY 11/05/23 02/09/25 calcium carbonate 600 mg PO BID 11/05/23 02/09/25 carvedilol 25 mg tablet 25 mg PO BID 11/05/23 02/09/25 cetirizine 10 mg tablet 10 mg PO DAILY 11/05/23 02/09/25 albuterol sulfate 90 mcg/actuation inhalation 02/09/25 aerosol inhaler blood sugar diagnostic (OneTouch 02/09/25 02/09/25 Ultra Test strips) diltiazem HCl 120 mg mg PO 02/09/25 capsule,extended release 24 hr ergocalciferol (vitamin D2) 1,250 02/09/25 mcg (50,000 unit) capsule furosemide 20 mg tablet mg 02/09/25 lidocaine 5 % topical ointment 02/09/25 loperamide 2 mg capsule mg 02/09/25 metformin 500 mg tablet mg 02/09/25 mirabegron 50 mg tablet,extended mg PO 02/09/25 release 24 hr (Myrbetriq) montelukast 10 mg tablet mg 02/09/25 nabumetone 500 mg tablet mg 02/09/25 omeprazole 40 mg capsule,delayed mg 02/09/25 release ondansetron 4 mg disintegrating mg 02/09/25 tablet oxycodone-acetaminophen 10 mg-325 tab 02/09/25 mg tablet solifenacin 10 mg tablet mg PO 02/09/25 thiamine mononitrate (vit B1) 100 mg 02/09/25 mg tablet (Vitamin B-1 (mononitrate)) Previous Rx's �Medication �Instructions �Recorded ondansetron 4 mg disintegrating 4 mg PO Q6H PRN nausea and 02/10/25 tablet vomiting #10 tabs tramadol 50 mg tablet 50 mg PO Q12H PRN pain 3 days #6 03/09/25 tabs Allergies Allergy/AdvReac Type Severity Reaction Status Date / Time Iodinated Contrast Media Allergy Severe shortness Verified 02/09/25 20:17 of breath adhesive tape Allergy Blister Verified 02/09/25 20:17 amitriptyline Allergy Hives Verified 02/09/25 20:17 amoxicillin Allergy Anaphylaxis Verified 02/09/25 20:17 atomoxetine (From Strattera) Allergy Agitated Verified 02/09/25 20:17 bupropion (From Wellbutrin) Allergy Hives Verified 02/09/25 20:17 codeine Allergy Hives Verified 02/09/25 20:17 dexamethasone Allergy Hives Verified 02/09/25 20:17 divalproex sodium (From Allergy Hives Verified 02/09/25 20:17 Depakote) duloxetine (From Cymbalta) Allergy Hives Verified 02/09/25 20:17 fluticasone (From Advair Allergy Anaphylaxis Verified 02/09/25 20:17 Diskus) gabapentin Allergy Anaphylaxis Verified 02/09/25 20:17 ibuprofen Allergy Anaphylaxis Verified 02/09/25 20:17 ketorolac (From Toradol) Allergy Anaphylaxis Verified 02/09/25 20:17 meloxicam (From Mobic) Allergy Anaphylaxis Verified 02/09/25 20:17 methadone Allergy Anaphylaxis Verified 02/09/25 20:17 milnacipran (From [place]) Allergy Anaphylaxis Verified 02/09/25 20:17 nitrofurantoin (From Allergy Anaphylaxis Verified 02/09/25 20:17 Macrobid) paroxetine (From Paxil) Allergy Confusion Verified 02/09/25 20:17 Penicillins Allergy Altered Verified 02/09/25 20:17 Sense of Taste pregabalin (From Lyrica) Allergy Anxiety Verified 02/09/25 20:17 ropinirole (From Requip) Allergy Hives Verified 02/09/25 20:17 salmeterol (From Advair Allergy Hives Verified 02/09/25 20:17 Diskus) topiramate (From Topamax) Allergy Hives Verified 02/09/25 20:17 ziprasidone Allergy Hives Verified 02/09/25 20:17 acetaminophen (From [place]) AdvReac itch Verified 03/09/25 13:33 hydrocodone (From [place]) AdvReac itch Verified 03/09/25 13:33 fish Allergy Anaphylaxis Uncoded 02/09/25 20:17 Opioid HPI Opioid Management Most Recent Pain and Opioid Data: Last Pain Scale 7 Today, 13:33 Ur Phencyclidine Scrn, (NEGATIVE) Negative 09/20/23, 08:52 Review of Systems ROS Status of ROS 10 or more systems reviewed and unremarkable except as noted in history and below PFSH [facility] Social History Smoking status: Never smoker Little interest or pleasure in doing things: not at all Feeling down, depressed, or hopeless: not at all Exam Narrative Exam Narrative: Nurses notes and vital signs reviewed and patient is not hypoxic. General: Well-appearing and in no apparent distress. Skin: Warm, dry, no pallor noted. No rash. Left lower extremity: The patient have mild tenderness upon palpation of the knee anteriorly with the full range of movement preserved but with pain. No swelling or vascular injury Neurological: A&O x4. No cranial nerve dysfunction observed. No truncal ataxia. Moves all extremities. Sensation intact. Psychiatric: Cooperative and interactive. Normal mood and affect. Constitutional Vital Signs, click to edit/add: Last Vital Signs Temp 97.9 F 03/09/25 13:33 Pulse 52 L 03/09/25 13:57 Resp 18 03/09/25 13:33 BP 148/70 H 03/09/25 13:33 Pulse Ox 99 03/09/25 13:33 O2 Del Method Room Air 03/09/25 13:33 Course Vital Signs Vital signs: Vital Signs Temperature 97.9 F 03/09/25 13:33 Pulse Rate 51 L 03/09/25 13:33 Respiratory Rate 18 03/09/25 13:33 Blood Pressure 148/70 H 03/09/25 13:33 Pulse Oximetry 99 03/09/25 13:33 Oxygen Delivery Method Room Air 03/09/25 13:33 Temperature 97.9 F 03/09/25 13:33 Pulse Rate 52 L 03/09/25 13:57 Respiratory Rate 18 03/09/25 13:33 Blood Pressure 148/70 H 03/09/25 13:33 Pulse Oximetry 99 03/09/25 13:33 Oxygen Delivery Method Room Air 03/09/25 13:33 MDM - Extremity Injury (Lower) MDM Narrative Medical decision making narrative: The patient had her opiate intake reviewed she last given tramadol almost on the ninth of this month Although the patient does have a chronic knee pain but it is according to her limiting her movement she have allergies to multiple medication Patient was provided with tramadol for the next 3 days only with instruction to reach out to her primary care doctor for further evaluation The patient is to follow up with primary care physician in next 2-3 days or to return to the emergency department should any of the signs or symptoms worsen or new symptoms develop. The patient agrees with the following Diagnosis and Treatment plan and the patient will be discharged home. Discharge Plan Discharge Chief Complaint: Extremity Problem, Nontraumatic Clinical Impression: Chronic knee pain Patient Disposition: Home, Self-Care Time of Disposition Decision: 13:51 Prescriptions / Home Meds: New tramadol 50 mg tablet 50 mg PO Q12H PRN (Reason: pain) 3 Days Qty: 6 0RF No Action metformin 500 mg tablet loperamide 2 mg capsule (DME) OneTouch Ultra Test Strip MISCELLANEOUS omeprazole 40 mg capsule,delayed release(DR/EC) oxycodone-acetaminophen 10-325 mg tablet diltiazem HCl 120 mg capsule,extended release 24hr PO montelukast 10 mg tablet furosemide 20 mg tablet ergocalciferol (vitamin D2) 1,250 mcg (50,000 unit) capsule albuterol sulfate 90 mcg/actuation HFA aerosol inhaler INHALATION ondansetron 4 mg tablet,disintegrating nabumetone 500 mg tablet solifenacin 10 mg tablet PO thiamine mononitrate (vit B1) [Vitamin B-1 (mononitrate)] 100 mg tablet lidocaine 5 % ointment mirabegron [Myrbetriq] 50 mg tablet extended release 24 hr PO ondansetron 4 mg tablet,disintegrating 4 mg PO Q6H PRN (Reason: nausea and vomiting) Qty: 10 0RF alendronate 70 mg tablet 70 mg PO QWEEK alprazolam 1 mg tablet 1 mg PO TID PRN (Reason: anxiety) aripiprazole 15 mg tablet 15 mg PO DAILY atorvastatin 80 mg tablet 80 mg PO DAILY calcium carbonate 600 mg calcium (1,500 mg) tablet 600 mg PO BID carvedilol 25 mg tablet 25 mg PO BID cetirizine 10 mg tablet 10 mg PO DAILY Print Language: Armenian Instructions: Pain Management (ED) Referrals: IVON GIRON [Primary Care Provider, Family Practice] - 1 week Discharge Date/Time: 03/09/25 14:04
== END 2025-03-09 14:04 | disposition home or self-care (01) ==
PROVIDERS: Emergency Provider Emergency Medicine; PCP Family Medicine
DX: M25.562 Pain in left knee (principal); G89.29 Other chronic pain
CPT/HCPCS: 99283

== ENCOUNTER 2025-04-16 08:52 | Outpatient (OUT) | payer OTHER, SELFPAY ==
--- NOTE | 2025-04-16 08:55 | US_ITS ---
The [address] [address] Patient Name: ROCK HERRERA MRN: [id number] date: 1970 Sex: F Assigned Patient Location: [place] Current Patient Location: [place] Accession/Order Number: [id number] Exam Date: 04/16/2025 08:56 Report Date: 04/16/2025 10:38 At the request of: SHERI COLES Procedure: US renal BI BILATERAL RENAL AND BLADDER ULTRASOUND CLINICAL HISTORY: Kidney Stone, Hematuria COMPARISON: CT 02/09/2025 Estimation of renal size is approximately 10.4 cm on the right and 10.3 cm on the left. There is an echogenic focus with ringdown artifact at the midpole on the right measuring 4 mm in size suggesting a stone. No hydronephrosis is identified. There is a tiny cyst at the lower pole of the left kidney measuring 7 mm in size. There is no perinephric fluid. The urinary bladder is poorly distended with a volume of 29 mL ml. No obvious contour or intraluminal abnormalities are seen. US/US renal BI IMPRESSION: RIGHT NEPHROLITHIASIS AND LEFT RENAL CYST. NO OBSTRUCTIVE UROPATHY. Impression dictated by: Allison Castaneda M.D. 04/16/2025 10:38 AM Dictation Location: [place] [address] Electronically authenticated by: [id number] Y Date: 04/16/2025 10:38
--- NOTE | 2025-04-16 08:56 | XR_ITS ---
The [address] [address] Patient Name: ROCK HERRERA MRN: [id number] date: 1970 Sex: F Assigned Patient Location: [place] Current Patient Location: [place] Accession/Order Number: [id number] Exam Date: 04/16/2025 09:22 Report Date: 04/16/2025 11:03 At the request of: SHERI COLES Procedure: XR abdomen 1V KUB: CLINICAL DATA: Right flank pain. History of kidney stones. COMPARISON: CT 02/09/2025 and ultrasound 04/16/2025 Supine view of the abdomen and pelvis was obtained. There is air and stool within the colon. No dilated small bowel loops are present. The kidneys are partially obscured. No obvious radiopaque renal or ureteral stones are identified. Multiple pelvic phleboliths are again noted, greater on the right. There are no soft tissue masses. Mild degenerative changes are seen at the spine. There is prior cholecystectomy and appendectomy. XR/XR abdomen 1V IMPRESSION: NO OBVIOUS RADIOPAQUE STONES. Impression dictated by: Allison Castaneda M.D. 04/16/2025 11:03 AM Dictation Location: [place] [address] Electronically authenticated by: [id number] Y Date: 04/16/2025 11:03
--- OUTSIDE RECORDS SUMMARY | 2025-04-16 09:01 | XMS_ITS | CCD ---
Author Organization [facility] Care Team Providers Care Retail Clerk Name Role Phone ROBERT GIRON Primary Care Physician [phone] YaelValarie Unavailable YAELVALARIE Attending Unavailable FURLONG, DR ROBERT Kimball Primary Care Unavailable YAEL, VALARIE Admitting Unavailable NEFCY, NICOLE Consulting Unavailable YAEL, VALARIE Consulting Unavailable CAROLA ., JAMAR Attending Unavailable FURLOCHARLI, DR ROBERT Kimball Primary Care Unavailable CAROLA ., JAMAR Admitting Unavailable CAROLA ., JAMAR Consulting Unavailable MISC, DR MALIN Attending Unavailable MISC, DR MALIN Admitting Unavailable FURLONG, DR ROBERT Kimball Primary Care Unavailable CAROLA ., JAMAR Admitting Unavailable FURLONG, DR ROBERT Kimball Primary Care Unavailable CAROLA ., JAMAR Consulting Unavailable CAROLA ., JAMAR Attending Unavailable PAY ., DR CABEZAS Attending Unavailable FURLONG, DR ROBERT Kimball Primary Care Unavailable GRECHNY .SHARYN Consulting Unavailabl e PAY ., DR CABEZAS Admitting Unavailable NEFNICOLE DENG Consulting Unavailable JAJA, ELIUD Attending Unavailable FURLOCHARLI, DR ROBERT Kimball Primary Care Unavailable JAJA, ELIUD Admitting Unavailable MISC, DR MALIN Admitting Unavailable MISC, DR MALIN Attending Unavailable FURLONG, DR ROBERT Kimball Primary Care Unavailable MISC, DR MALIN Admitting Unavailable FURLOCHARLI, DR ROBERT Kimball Primary Care Unavailable MISC, DR MALIN Attending Unavailable WILFREDO ., DR MACK Consulting Unavailable WILFREDO ., DR MACK Attending Unavailable WILFREDO ., DR MACK Admitting Unavailable FURLONG, DR ROBERT Kimball Primary Care Unavailable ZIEBER, DR DELORES Moreira Consulting Unavailable JAJA, ELIUD Admitting Unavailable JAJA, ELIUD Attending Unavailable FURLONG, DR ROBERT Kimball Primary Care Unavailable HENDERSON, DR MAMIE Quintana Consulting Unavailable JAJA, ELIUD Consulting Unavailable MISC, DR MALIN Attending Unavailable MISC, DR MALIN Admitting Unavailable FURLONG, DR ROBERT Kimball Primary Care Unavailable FURLONG, DR ROBERT Kimball Consulting Unavailable HENDERSON, DR MAMIE Quintana Consulting Unavailable MISC, DR MALIN Consulting Unavailable WILFREDO ., DR MACK Consulting Unavailable WILFREDO ., DR MACK Attending Unavailable FURLONG, DR ROBERT Kimball Primary Care Unavailable WILFREDO ., DR MACK Admitting Unavailable ZIEBER, DR DELORES Moreira Consulting Unavailable FURLONG, DR ROBERT Kimball Primary Care Unavailable REINECK, DR JEAN-PIERRE Kimball Consulting Unavailabl e REINECK, DR JEAN-PIERRE Kimball Attending Unavailabl e REINECK, DR JEAN-PIERRE Kimball Admitting Unavailabl e PAULA, SUJIT Consulting Unavailable FURLONG, DR ROBERT Kimball Primary Care Unavailable REINECK, DR JEAN-PIERRE Kimball Consulting Unavailabl e REINECK, DR JEAN-PIERRE Kimball Attending Unavailabl e REINECK, DR JEAN-PIERRE Kimball Admitting Unavailabl e RASTEGAR, LILIANA Consulting Unavailable FURLONG, DR ROBERT Kimball Primary Care Unavailable GRECHNY ., SHARYN LEES Consulting UnavailTUTU Mclean Attending Unavailable TUTU NOLASCO Admitting Unavailable Bree, DO Jones Primary Care Provider WILMA Conley Attending Provider [phone] CARLOS SANCHEZ Referring Unavailable DRAGAN SEN Primary Care Unavailable Robert Giron MD Primary Care Provider DO Robert Giron Primary Care Provider WILMA Conley Attending Provider Unavailable Primary Care Provider UnavailRobert Beckford DO Primary Care Provider [phone] Robert Giron DO Primary Care Provider Robert Giron MD Primary Care Provider Robert Giron DO Primary Care Provider Yael Valarie DILLON Attending Provider Robert Giron MD Primary Care Provider [phone] REYES BORGES Attending Unavailable ROBERT GIRON Referring Unavailable BREE, ROBERT Kimball Primary Care Unavailable KURT CHAPMAN Referring Unavailable FURLONG, ROBERT G Primary Care Unavailable ALECIA, JOEL L Referring Unavailable FURLONG, ROBERT G Primary Care Unavailable FURLONG, ROBERT G Attending Unavailable FURLONG, ROBERT G Referring Unavailable FURLONG, ROBERT G Primary Care Unavailable FURLONG, ROBERT G Primary Care Unavailable KURT BALDWIN Attending Unavailable FURLONG, ROBERT G Primary Care Unavailable JACQUELIN WILLSADELillie Young Referring Unavailable FURLONG, ROBERT G Primary Care Unavailable BRANDON SIMPSON Attending Unavailable FURLONG, ROBERT G Referring Unavailable FURLONG, ROBERT G Primary Care Unavailable AVI MAHARAJ Admitting Unavailable AVI MAHARAJ Attending Unavailable FURLONG, ROBERT G Referring Unavailable FURLONG, ROBERT G Primary Care Unavailable AVI MAHARAJ Attending Unavailable AVI MAHARAJ Referring Unavailable FURLONG, ROBERT G Primary Care Unavailable ALEXSANDRA DUNN Attending Unavailable FURLONG, ROBERT G Referring Unavailable [...] Unavailable FURLONG, ROBERT G Primary Care Unavailable KAMILLE JACKSON Attending Unavailable KAMILLE JACKSON Referring Unavailable FURLONG, ROBERT G Primary Care Unavailable FURLONG, ROBERT G Primary Care Unavailable KARLOS GUERRA Attending Unavailab le FURLONG, ROBERT G Attending Unavailable FURLONG, ROBERT G Primary Care Unavailable FURLONG, ROBERT G Referring Unavailable FURLONG, ROBERT G Primary Care Unavailable FURLONG, ROBERT G Referring Unavailable FURLONG, ROBERT G Primary Care Unavailable WILLS, DUANE N Attending Unavailable FURLONG, ROBERT G Referring Unavailable FURLONG, ROBERT G Primary Care Unavailable WILLS, DUANE N Attending Unavailable FURLONG, ROBERT G Referring Unavailable FURLONG, ROBERT G Primary Care Unavailable JOSSELINE ABAD Attending Unavailable LAN RUBI Attending Unavailable LAN RUBI Attending Unavailable Carmina ALCANTARA Referring Unavailable SHENDGE, ANAHIHAL Referring Unavailable SHENDGE, ANAHIHAL Referring Unavailable SKIE, LAN Attending Unavailable SHENDGE, ANAHIHAL Attending Unavailable SKIE, LAN Admitting Unavailable SKIE, LAN Attending Unavailable LEAHCarmina Referring Unavailable SKIE, LAN Attending Unavailable YUDYSHERI ROBLES Attending Unavailable YUDY, SHERI Kaminski Attending Unavailable NONE, XXXX Referring Unavailable MD Kehinde Davalos Attending Unavailable MD Kehinde Davalos Admitting Unavailable YUDY, SHERI Kaminski Admitting Unavailable YUDY, SHERI Kaminski Attending Unavailable NONE, XXXX Referring Unavailable Artie, Cady Attending Unavailable Artie, Cady Admitting Unavailable FURROBERT VILA Referring Unavailable Andrew Eid Attending Unavailable Andrew Eid Admitting Unavailable SHMUEL LEVINE Attending Unavailable SHENDGE, ANAHIHAL Referring Unavailable NIKKI VERGARA Attending Unavailable GRICELDA HAMMOND Attending Unavailable SHENDGE, VITHAL Referring Unavailable SHMUEL LEVINE Attending Unavailable SHENDGE, VITHAL Referring Unavailable CARLOS SANCHEZ Attending Unavailable MARTIN ARANGO Attending Unavailable MARTIN ARANGO Attending Unavailable MARTIN ARANGO Attending Unavailable BROWNMARTIN Attending Unavailable MARTIN ARANGO Attending Unavailable GRICELDA HAMMOND Attending Unavailable FURLONGROBERT G Referring Unavailable BROWNMARTIN Attending Unavailable MARTIN ARANGO Referring Unavailable ANDRIA CARTER Attending Unavailable FURLONGROBERT Referring Unavailable GRICELDA HAMMOND Attending Unavailable FURLONGROBERT Referring Unavailable BRINKANDRIA Attending Unavailable FURLONGROBERT G Referring Unavailable BRINKANDRIA Attending Unavailable JUAN CARLOS ARANGOOLAMelissa Jerome Referring Unavailable SHMUEL LEVINE Attending Unavailable TRINO ARANGOS Queenie Referring Unavailable CARLOS SANCHEZ Attending Unavailable MARTIN ARANGO Attending Unavailable JR. LERMA GEORGE C Attending Unavaila ble ROBERT GIRON Referring Unavailable JR. LERMA GEORGE C Referring Unavaila ble ANA CORONADO Attending Unavailable KURT CHAPMAN Referring Unavailable ANA CORONADO Attending Unavailable KURT CHAPMAN Referring Unavailable MARTIN ARANGO Attending Unavailable CJ ZEPEDA Attending Unavailable MARTIN ARANGO Attending Unavailable CJ ZEPEDA Attending Unavailable PASTORA ALCANTARA Attending Unavailable GALO CORONADO Attending Unavailable CJ ZEPEDA Referring Unavailable PASTORA ALCANTARA Attending Unavailable MARTIN ARANGO Attending Unavailable MARTIN ARANGO Referring Unavailable CARLOS SANCHEZ Attending Unavailable MARTIN ARANGO Attending Unavailable MARTIN ARANGO Attending Unavailable DAVID VILLALOBOS Attending Unavailable CARLOS SANCHEZ Attending Unavailable GRICELDA HAMMOND Attending Unavailable SHENANEJOSSELINE Referring Unavailable SHMUEL LEVINE Attending Unavailable SHENDGEJOSSELINE Referring Unavailable FURLONG, ROBERT G Attending Unavailable [...] Unavailable FURLONG, ROBERT G Primary Care Unavailable MAYA LYNN Attending Unavailable FURLONG, ROBERT G Referring Unavailable FURLONG, ROBERT G Primary Care Unavailable FURLONG, ROBERT G Attending Unavailable FURLONG, ROBERT G Referring Unavailable FURLONG, ROBERT G Primary Care Unavailable Donaldo PEARSON Attending Unavailable Sofiya Villa Attending Unavailable NONE, XXXX Referring Unavailable En Carmen Attending Unavailable JIM LERMA Attending Unavailable FURLONG, ROBERT G Primary Care Unavailable JIM LERMA Admitting Unavailable STEPJIM VIVEROS Attending Unavailable FURLONG, ROBERT G Primary Care Unavailable STEPJIM VIVEROS Admitting Unavailable Furlong DO, Robert Primary Care Provider [phone] Yael WAREHOUSERValarie Attending Provider Furlong, Robert Primary Care Unavailable Yael Valarie Attending Unavailable Yael Valarie Admitting Unavailable Furlong, Robert Primary Care Unavailable Sofiya Brown Attending Unavailable Sofiya Brown Admitting Unavailable Valarie Conley Admitting Unavailable Robert Giron Primary Care Unavailable Valarie Conley Attending Unavailable Allergies Allergy Classification Reported Allergen(s) Allergy Type Date of Onset Reaction(s) Facility (20 sources) Acetaminophen / HYDROcodone; Translations: [acetaminophen-hydr ocodone] Drug Allergy Unknown (qualifier value), rash [facility] (20 sources) Adhesive Tape; Translations: [Tape] Drug allergy Eruption of skin (disorder), rash [facility] (20 sources) Amitriptyline; Translations: [amitriptyline] Drug Allergy 013 Vomiting (disorder), Mental Status Change, Abnormal Behavior [facility] (20 sources) Amoxicillin; Translations: [amoxicillin] Drug Allergy Vomiting [facility] (20 sources) Amoxicillin / Clavulanate; Translations: [amoxicillin-clavul anate] Drug Allergy 017 Vomiting (disorder), GI Disturbance [facility] (20 sources) atomoxetine; Translations: [atomoxetine] Drug Allergy 011 Palpitations [facility] Comment on above: (atomoxetine) (20 sources) buPROPion; Translations: [bupropion] Drug Allergy Palpitations [facility] (20 sources) Codeine; Translations: [codeine] Drug Allergy Eruption of skin (disorder), Hives, Rash [facility] (20 sources) Dexamethasone; Translations: [dexamethasone] Drug Allergy 012 Menopausal flushing (finding), Unknown [facility] Comment on above: (dexamethasone) (20 sources) Doxycycline; Translations: [doxycycline] Drug Allergy 011 Palpitations, Other: See Comments, GI Disturbance [facility] (20 sources) DULoxetine; Translations: [duloxetine] Drug Allergy 019 Unknown (qualifier value), hives [facility] (20 sources) fluticasone; Translations: [fluticasone] Drug Allergy 014 Unknown (qualifier value) [facility] (20 sources) fluticasone / salmeterol; Translations: [fluticasone-salmet su] Drug Allergy 013 Eruption of skin (disorder), rash, Itching, Palpitations, Unknown [facility] (20 sources) gabapentin; Translations: [gabapentin] Drug Allergy 019 Unknown (qualifier value) [facility] (20 sources) Ibuprofen; Translations: [ibuprofen] Drug Allergy 012 Eruption of skin (disorder), rash, Nausea And Vomiting, GI Disturbance [facility] (20 sources) Ketorolac; Translations: [ketorolac] Drug Allergy 011 Unknown (qualifier value), Other: See Comments [facility] (20 sources) meloxicam; Translations: [meloxicam] Drug Allergy 019 Unknown (qualifier value) [facility] (20 sources) Methadone; Translations: [methadone] Drug Allergy 011 Vomiting (disorder), Nausea And Vomiting, Vomiting, GI Disturbance [facility] (20 sources) milnacipran; Translations: [milnacipran] Drug Allergy Unknown (qualifier value), Other (See Comments) [facility] (20 sources) moxifloxacin; Translations: [moxifloxacin] Drug Allergy Eruption of skin (disorder), rash, Nausea Only, Nausea [facility] (20 sources) NITROFURANTOIN, MACROCRYSTALS / Nitrofurantoin, Monohydrate; Translations: [nitrofurantoin] Drug Allergy Other (See Comments) [facility] (20 sources) OXcarbazepine; Translations: [oxcarbazepine] Drug Allergy 011 Unknown (qualifier value), Other: See Comments, GI Disturbance, Palpitations [facility] (20 sources) PARoxetine; Translations: [paroxetine] Drug Allergy 023 Unknown (qualifier value), Hives [facility] (20 sources) Penicillins; Translations: [penicillins] Drug allergy 011 Unknown (qualifier value), Hives, Vomiting, GI Disturbance, Other (See Comments) [facility] (20 sources) pregabalin; Translations: [pregabalin] Drug Allergy 013 Unknown (qualifier value), Mental Status Change, Other (See Comments), Palpitations [facility] (20 sources) rOPINIRole; Translations: [ropinirole] Drug Allergy Altered mental status [facility] (20 sources) Shellfish; Translations: [shellfish] Drug allergy Eruption of skin (disorder), rash [facility] (20 sources) Sulfamethoxazole / Trimethoprim; Translations: [sulfamethoxazole-t rimethoprim] Drug Allergy Vomiting (disorder), Hives, Vomiting [facility] (20 sources) topiramate; Translations: [topiramate] Drug Allergy Vomiting (disorder), Unknown, GI Disturbance, Other (See Comments) [facility] (20 sources) Valproate; Translations: [divalproex sodium] Drug Allergy Alopecia (disorder) [facility] (20 sources) Verapamil; Translations: [verapamil] Drug Allergy Vomiting (disorder), GI intolerance, Vomiting, GI Disturbance [facility] (20 sources) ziprasidone; Translations: [ziprasidone] Drug Allergy 011 Unknown (qualifier value), Palpitations, Other (See Comments) [facility] (5 sources) Adhesive Tape; Translations: [Adhesive tape] Allergy to substance contact dermatitis [facility] (20 sources) Fish Containing Products; Translations: [FISH CONTAINING PRODUCTS] Allergy to substance Rash [facility] (6 sources) Codeine Drug Allergy rash [facility] Other (6 sources) torodol Propensity to adverse reactions severe abdominal pain [facility] Other (20 sources) Methocarbamol; Translations: [methocarbamol] Drug Allergy 023 Unknown (qualifier value), Other (See Comments) [facility] (2 sources) Acetaminophen / HYDROcodone Drug Allergy [facility] (2 sources) Amitriptyline Drug Allergy [facility] (2 sources) Amoxicillin / Clavulanate Drug Allergy [facility] (4 sources) atomoxetine; Translations: [Strattera] Drug Allergy [facility] (1 source) atorvastatin Drug Allergy [facility] (2 sources) buPROPion Drug Allergy [facility] (2 sources) carBAMazepine Drug Allergy [facility] (1 source) Clindamycin Drug Allergy [facility] (2 sources) Codeine Drug Allergy [facility] (4 sources) Dexamethasone; Translations: [Decadron] Drug Allergy [facility] (2 sources) Diclofenac Drug Allergy [facility] (2 sources) Doxycycline Drug Allergy [facility] (2 sources) DULoxetine Drug Allergy [facility] (20 sources) Fish derivative; Translations: [FISH DERIVED] Drug allergy (disorder) Hives [facility] (2 sources) Fluorometholone Drug Allergy [facility] (2 sources) fluticasone / salmeterol Drug Allergy [facility] (2 sources) gabapentin Drug Allergy [facility] (2 sources) hydrOXYzine Drug Allergy [facility] (2 sources) Ibuprofen Drug Allergy [facility] (2 sources) Ibuprofen Drug Allergy [facility] (1 source) Ketorolac Drug Allergy [facility] (2 sources) Ketorolac Drug Allergy [facility] (2 sources) meloxicam Drug Allergy [facility] (2 sources) Methadone Drug Allergy [facility] (2 sources) Methocarbamol Drug Allergy [facility] (2 sources) milnacipran Drug Allergy [facility] (2 sources) moxifloxacin Drug Allergy [facility] (2 sources) Nitrofurantoin Drug Allergy [facility] (2 sources) OXcarbazepine Drug Allergy [facility] (2 sources) PARoxetine Drug Allergy [facility] (4 sources) pregabalin; Translations: [Lyrica] Drug Allergy [facility] (2 sources) rOPINIRole Drug Allergy [facility] (1 source) Sulfonamides (Antibiotic) Drug allergy (disorder) [facility] (2 sources) topiramate Drug Allergy [facility] (2 sources) Valproate Drug Allergy [facility] (1 source) Verapamil Drug Allergy [facility] (4 sources) ziprasidone; Translations: [Geodon] Drug Allergy [facility] (9 sources) Adhesive agent; Translations: [ADHESIVE] Drug allergy rash [facility] (20 sources) Shellfish [facility] Other (20 sources) atomoxetine Drug Allergy Palpitations [facility] (20 sources) atomoxetine; Translations: [ATOMOXETINE HCL] Drug Allergy Palpitations, Other: See Comments, GI Disturbance [facility] (20 sources) DULoxetine; Translations: [DULOXETINE HCL] Drug Allergy [facility] (20 sources) Eicosapentaenoate; Translations: [EICOSAPENTAENOIC ACID] Drug Allergy 017 [facility] (20 sources) Ketorolac Propensity to adverse reactions [facility] (20 sources) Ketorolac trometamol; Translations: [KETOROLAC TROMETHAMINE] Allergy to substance 011 Hives [facility] (20 sources) meloxicam Drug Allergy [facility] (20 sources) Methocarbamol Drug Allergy 023 [facility] (20 sources) milnacipran Drug Allergy Hives [facility] (20 sources) Nitrofurantoin Drug Allergy Hives, Rash [facility] (20 sources) Oxcarbazepine Allergy to substance GI intolerance, Hives, Palpitations [facility] (20 sources) Pregabalin Allergy to substance Palpitations [facility] (20 sources) Shellfish Allergy to substance Rash, Hives [facility] (20 sources) Sulfamethoxazole; Translations: [SULFAMETHOXAZOLE] Propensity to adverse reactions vomiting [facility] (20 sources) Topiramate Allergy to substance GI intolerance [facility] (20 sources) Valproate; Translations: [VALPROIC ACID] Drug Allergy [facility] (20 sources) ziprasidone Drug Allergy Palpitations [facility] (20 sources) ziprasidone; Translations: [ZIPRASIDONE HCL] Drug Allergy Hives, Palpitations, Other: See Comments [facility] (20 sources) Amoxicillin-Pot Clavulanate; Translations: [AMOXICILLIN-POT CLAVULANATE] Drug Intolerance Nausea And Vomiting [facility] (20 sources) Aloe-Sodium Chloride Propensity to adverse reactions [facility] (20 sources) Fish-Derived Products Drug Intolerance [facility] (20 sources) Moxifloxacin Hcl In Nacl Drug Intolerance [facility] (20 sources) Other; Translations: [OTHER] Propensity to adverse reactions Hives [facility] (20 sources) Wound Dressing Adhesive Drug Allergy Rash [facility] (1 source) Acetaminophen Drug Allergy [facility] (1 source) Clavulanate Drug Allergy vomiting [facility] (1 source) HYDROcodone Drug Allergy [facility] (1 source) salmeterol Drug Allergy [facility] (20 sources) Shellfish; Translations: [SHELLFISH DERIVED] Allergy to substance rash [facility] (1 source) Trimethoprim Drug Allergy vomiting [facility] (5 sources) Valproate; Translations: [divalproex sodium] Drug Allergy hair loss [facility] (2 sources) Adhesive Tape Propensity to adverse reactions to substance Rash [facility] (20 sources) buPROPion; Translations: [BUPROPION HCL] Drug Allergy Other: See Comments, GI Disturbance, Palpitations [facility] (4 sources) moxifloxacin; Translations: [MOXIFLOXACIN-SOD.C HLORIDE(ISO)] Drug Allergy Unknown [facility] (20 sources) Aloe Extract; Translations: [ALOE] Drug Allergy [facility] (20 sources) Fish - dietary Propensity to adverse reactions Hives, Rash [facility] (20 sources) Iodinated Contrast Media; Translations: [IODINATED CONTRAST MEDIA] Drug Intolerance Anaphylaxis [facility] (20 sources) Aloe vera preparation; Translations: [SODIUM CHLORIDE-ALOE VERA] Drug Allergy [facility] (20 sources) Sulfamethoxazole Drug Allergy Other (See Comments) [facility] (20 sources) Valproate; Translations: [DIVALPROEX] Drug Allergy [facility] (20 sources) Valproate Drug Allergy [facility] (20 sources) Verapamil; Translations: [VERAPAMIL HCL] Drug Allergy [facility] (20 sources) Adhesive Tape-Silicones; Translations: [ADHESIVE TAPE-SILICONES] Propensity to adverse reactions to drug Other (See Comments), [facility] Work Phone: (20 sources) Penicillin; Translations: [PENICILLIN] Drug Allergy Other (See Comments) [facility] (4 sources) Dexamethasone; Translations: [DEXAMETHASONE (PF)] Drug Allergy [facility] (1 source) PARoxetine; Translations: [PAROXETINE HCL] Drug Allergy [facility] (7 sources) Sulfamethoxazole / Trimethoprim; Translations: [SULFAMETHOXAZOLE-T RIMETHOPRIM] Drug Allergy [facility] (7 sources) SHELLFISH CONTAINING PRODUCTS; Translations: [SHELLFISH CONTAINING PRODUCTS] Propensity to adverse reactions to drug (disorder) [facility] (4 sources) NITROFURANTOIN MONOHYD/M-CRYST; Translations: [NITROFURANTOIN MONOHYD/M-CRYST] Propensity to adverse reactions to drug (disorder) [facility] (7 sources) FLUTICASONE PROPION-SALMETEROL; Translations: [FLUTICASONE PROPION-SALMETEROL] Propensity to adverse reactions to drug (disorder) 013 [facility] (2 sources) Fish - dietary; Translations: [Fish] Food allergy (disorder) [facility] (1 source) Amitriptyline Drug Allergy [facility] (1 source) Amoxicillin Drug Allergy [facility] (1 source) atomoxetine Drug Allergy [facility] (1 source) buPROPion Drug Allergy [facility] (1 source) Codeine Drug Allergy [facility] (1 source) Dexamethasone Drug Allergy [facility] (1 source) Doxycycline Drug Allergy [facility] (1 source) DULoxetine Drug Allergy [facility] (1 source) fluticasone Drug Allergy [facility] (1 source) gabapentin Drug Allergy [facility] (1 source) Ibuprofen Drug Allergy [facility] (1 source) Ketorolac Drug Allergy [facility] (1 source) meloxicam Drug Allergy [facility] (1 source) Methadone Drug Allergy [facility] (1 source) milnacipran Drug Allergy [facility] (1 source) moxifloxacin Drug Allergy [facility] (1 source) OXcarbazepine Drug Allergy [facility] (1 source) PARoxetine Drug Allergy [facility] (1 source) pregabalin Drug Allergy [facility] (1 source) rOPINIRole Drug Allergy [facility] (1 source) Sulfamethoxazole Drug Allergy [facility] (1 source) topiramate Drug Allergy [facility] (1 source) Verapamil Drug Allergy [facility] (1 source) ziprasidone Drug Allergy [facility] Medications Current Medications Medication Drug Class(es) Dates Sig (Normalized) Sig (Original) Ajovy Autoinjector 225 mg/1.5 mL subcutaneous solution (3 sources) Start: 10-25-2021 inject 225 mg by subcutaneous injection every month Ajovy Autoinjector 225 mg/1.5 mL subcutaneous solution 225 mg, SubCutaneous, qMonth, Refills(s) 0, Blood glucose Start Date: 10/25/21 Status: Ordered [id number] 200 actuat albuterol 0.09 mg/actuat metered dose inhaler (20 sources) beta2-Adrenergic Agonist Start: 04-08-2024 take 2.5 mg by inhalation every six hours as needed Start: 06-14-2021 End: 01-25-2025 take 1 puff(s) by inhalation every four to six hours as needed take 2 puff(s) by in halation every six hours as needed for wheezing albuterol (PROVENTIL HFA;VENTOLIN HFA) 90 mcg/actuation inhaler Inhale 2 puffs every 6 (six) hours as needed for wheezing. Active take 1 puff(s) by in halation in the morning, then take 1 puff(s) by inhalation in the evening, then take 1 puff(s) by inhalation at bedtime Ventolin HFA 108 (90 Base) MCG/ACT inhaler Inhale 1 puff in the morning and 1 puff in the evening and 1 puff before bedtime. Active take 1 puff(s) by in halation every four hours as needed Proventil HFA 108 (90 Base) MCG/ACT 1 puff as needed Inhalation every 4 hrs Active Albuterol Sulfat e (2.5 MG/3ML) 0.083% 3 mL as needed Inhalation every 6 hrs for 30 days Active alendronic acid 70 mg oral tablet (20 sources) Bisphosphonate Start: 10-08-2022 alendronate (FOSAMAX) 70 mg tablet 10/08/2022 Active ALPRAZolam 1 mg oral tablet (20 sources) Benzodiazepine Start: 07-25-2024 End: 01-21-2025 take 1 tablet by mouth three times daily as needed for anxiety ALPRAZolam (XANAX) 1 mg tablet Indications: Anxiety Take 1 tablet (1 mg total) by mouth 3 (three) times a day as needed for anxiety. 90 tablet 2 01/21/2025 Active Start: 07-10-2021 take 0.25 mg by mout h three times daily as needed for anxiety Xanax 0.25 mg, Oral, TID, PRN as needed for anxiety, Refills(s) 0 Start Date: 07/10/21 Status: Ordered Start: 06-14-2021 End: 10-12-2024 take 1 tablet by mouth three times daily Alprazolam 0.5 mg tablet Discontinued 0.5 MG PO Three times daily June 14, 2021 12:00am October 12, 2024 3:56pm Ankle Air-Stirrup unit (1 source) Start: 01-02-2025 Ankle Air-Stirrup unit Active 0 .Route 1 January 02, 2025 12:00am As directed ARIPiprazole 15 mg oral tablet (20 sources) Atypical Antipsychotic Start: 11-16-2022 End: 03-22-2025 take 1 tablet by mouth once daily ARIPiprazole (ABILIFY) 15 mg tablet TAKE ONE TABLET BY MOUTH ONCE DAILY 30 tablet 5 03/22/2025 Active Start: 04-09-2022 End: 04-12-2024 ARIPiprazole (Abilify) 20 MG tablet Take 15 mg by mouth in the morning. 04/09/2022 04/12/2024 Discontinued (Discontinued by another clinician) Start: 04-28-2018 End: 10-12-2024 take 1 tablet by mouth once daily Aripiprazole 30 mg tablet Discontinued 30 MG PO Daily June 14, 2021 12:00am October 12, 2024 3:59pm Start: 04-28-2018 Abilify 30 mg oral tablet See Instructions, Reports taking 15mg daily now as prescribed by her PCP., Refills(s) 0, Other (see comment) Start Date: 04/28/18 Status: Ordered take 2 tablets by mo [facility] once daily in the morning ARIPiprazole (ABILIFY) [...] daily. In AM Active aspirin 81 mg oral tablet (20 sources) Platelet Aggregation Inhibitor, Nonsteroidal Anti-inflammatory Drug Start: 06-14-2021 take 1 capsule by mouth once daily atorvastatin 80 mg oral tablet (20 sources) HMG-CoA Reductase Inhibitor Start: 12-27-2022 End: 01-15-2025 take 1 tablet by mouth once daily atorvastatin (LIPITOR) 80 mg tablet TAKE ONE TABLET BY MOUTH DAILY 30 tablet 11 01/15/2025 Active Start: 04-28-2018 End: 10-12-2024 take 1 tablet by mouth once daily at bedtime Atorvastatin 40 mg tablet Discontinued 40 MG PO Daily at bedtime June 14, 2021 12:00am October 12, 2024 3:57pm Start: 04-28-2018 take 2 tablets by [facility] at bedtime Lipitor 40 mg Tab 80 mg = 2 tab(s), Oral, Bedtime, Refills(s) 0, High cholesterol Start Date: 04/28/18 Status: Ordered Repeat number: 1 azithromycin 250 mg oral tablet (8 sources) [...] day(s), # 6 tab(s), Refills(s) 0, [facility]acy: [id number], 163, cm, 10/20/22 10:48:00 EST, Height/Length [...] Ordered Start: 06-14-2021 take 1 tablet by mouth twice d aily bifidobacterium infantis 4 mg oral capsule (4 sources) Start: 10-29-2022 End: 11-26-2022 take 1 capsule by mouth once daily Align 4 mg oral capsule 4 mg = 1 cap(s), Oral, Daily, X 28 day(s), # 28 cap(s), Refills(s) 0, Pharmacy: [id number], 163, cm, 10/29/22 14:56:00 EDT, Height/Length Dosing, 77.3, kg, 10/29/22 14:56:00 EDT, Weight Dosing Start Date: 10/29/22 Stop Date: 11/26/22 Status: [place]dered blood-[place] [facility] [place] Start: 02-24-2025 blood-glucose [place]X GLUCOSE [place] [facility] [place]: Diabetes mellitus without complication [place]) 1 Unit by miscellaneous route in the morning. 1 each 02/24/2025 Active Start: 02-24-2025 End: 02-24-2025 blood-glucose meter (TRUE ME TRIX GLUCOSE METER[place] [facility] [place]: Diabetes mellitus without complication [place]) 1 Unit by miscellaneous route in the morning. 1 each 02/24/2025 02/24/2025 Discontinued (Reorder) Budesonide / formoterol (10 sources) Corticosteroid, beta2-Adrenergic Agonist Start: 09-04-2021 Symbicort Inhalation, BID, Refill(s) 0, COPD Start Date: 09/04/21 Status: Ordered Start: 06-14-2021 End: 04-08-2024 budesonide-formoterol (Symbi cely) 160-4.5 MCG/ACT inhaler Daily at bedtime 06/14/2021 04/08/2024 Active Start: 06-14-2021 End: 04-08-2024 take 1 puff(s) by inhalation once daily at bedtime Budesonide-Formoterol (Symbicort) 160-4.5 mcg/actuation HFA aerosol inhaler Discontinued 2 PUFF INHALATION Daily at bedtime June 14, 2021 12:00am April 08, 2024 10:17am 168 hr buprenorphine 0.005 mg/hr transdermal system [...] 0, Prophylaxis Start Date: 07/20/16 Status: Ordered Repeat number: 1 Start: 07-20-2016 Calcium 600+D 600 / 400 mg, Oral, Daily, Refill(s) 0, Prophylaxis Start Date: 07/20/16 Status: Ordered calcium carbonate 1500 mg oral tablet (20 sources) Start: 12-18-2024 take 1 tablet by mouth twice daily calcium carbonate 1500 (600 Ca) MG tablet Indications: Localized osteoporosis, unspecified pathological fracture presence TAKE ONE TABLET BY MOUTH TWICE A DAY 60 tablet 11 12/18/2024 Active Start: 11-06-2022 calcium carbon ate (OS-LARRY) 600 mg (1,500 mg) tablet 11/06/2022 Active Start: 11-06-2022 take 1 tablet by colin th twice daily calcium carbonate 1500 (600 Ca) MG tablet Indications: Localized osteoporosis, unspecified pathological fracture presence (CMS/HCC) TAKE ONE TABLET BY MOUTH TWICE A DAY 60 tablet 11 12/19/2023 Active take 1 tablet by colin th in the morning calcium carbonate 1500 (600 Ca) MG tablet Take 1,500 mg by mouth in the morning and 1,500 mg before bedtime. 0 Active Calcium Carbonate / vitamin D3 (2 sources) calcium carbonat e/vitamin D3 (CALCIUM 500 + D, D3, ORAL) Take by mouth one time a week. Active carvedilol 25 mg oral tablet (20 sources) alpha-Adrenergic Laz, beta-Adrenergic Laz Start: take 1 tablet by mouth twice daily Start: 03-06-2022 End: 08-01-2023 take 1 tablet by mouth twice daily carvedilol 25 mg Tab 25 mg = 1 tab(s), Oral, BID, # 60 tab(s), Refills(s) 5, Pharmacy: [id number], 163, cm, 08/26/24 12:41:00 EST, Height/Length Dosing, 74.4, kg, 08/26/24 12:41:00 EST, Weight Dosing Start Date: 01/15/25 Status: Ordered Quantity: 60.0 Unit: tab(s) Repeat number: 6 Start: 06-14-2021 End: 10-12-2024 take 1 tablet by mouth twice daily Carvedilol 12.5 mg tablet Discontinued 12.5 MG PO Twice daily June 14, 2021 12:00am October 12, 2024 3:58pm celecoxib 200 mg oral capsule (5 sources) Nonsteroidal Anti-inflammatory Drug Start: 12-15-2024 take 1 capsule by mouth in the morning, then take 1 capsule by mouth at bedtime celecoxib (CeleBREX) 200 mg capsule Take 1 capsule (200 mg total) by mouth in the morning and 1 capsule (200 mg total) before bedtime. 60 capsule 2 12/15/2024 Active Start: 06-10-2024 End: 09-15-2024 take 1 capsule by mouth in the morning, then take 1 capsule by mouth at bedtime celecoxib (CeleBREX) 100 mg capsule Take 1 capsule (100 mg total) by mouth in the morning and 1 capsule (100 mg total) before bedtime. 60 capsule 2 06/10/2024 09/15/2024 Discontinued (Therapy completed) cetirizine hydrochloride 10 mg oral tablet (20 sources) Histamine-1 Receptor Antagonist Start: 02-24-2015 take 1 tablet by mouth once daily [...] 5,000 Units by mouth once daily. Active Continuous Glucose Sensor (FreeStyle Lilliam 2 Sensor) misc (20 sources) Start: 07-24-20 Continuous Glucose Sensor (FreeStyle Lilliam 2 Sensor) misc USE DIRECTED AND CHANGE EVERY 14 DAYS 07/24/2024 Active Continuous Glucose Transmitter (Dexcom G6 transmitter) misc (20 sources) Start: 01-27-20 Continuous Glucose Transmitter (Dexcom G6 transmitter) misc 1 UNIT BY MISCELLANEOUS ROUTE EVERY 3 (THREE) MONTHS. 01/27/2024 Active cyclobenzaprine hydrochloride 10 mg oral tablet (1 source) Muscle Relaxant Start: 11-29-19 take 1 tablet by mouth at bedtime cyclobenzaprine 10 mg Tab 10 mg = 1 tab(s), Oral, Bedtime, Refills(s) 0 Start Date: 11/29/23 Status: Ordered 24 hr dilTIAZem hydrochloride 120 mg extended release oral capsule (20 sources) Calcium Channel Laz Start: 10-12-19 take 1 capsule by mouth every twenty-four hours Start: 10-12-2024 take 1 capsule by [facility] every twenty-four hours Diltiazem Hcl 120 mg capsule,extended release 24hr Active 120 MG PO Once October 12, 2024 1:00am Start: 07-05-2023 take 1 capsule by [facility] once daily dilTIAZem CD (CARDIZEM CD) 120 mg 24 hr capsule TAKE ONE CAPSULE BY MOUTH ONCE DAILY 30 capsule 11 06/18/2024 Active diphenhydrAMINE hydrochloride 25 mg oral capsule (20 sources) Histamine-1 Receptor Antagonist Start: 01-02-2023 take 1 capsule by mouth every six hours as needed diphenhydrAMINE (BenadryL) 25 mg capsule Indications: Rash in adult Take 1 capsule (25 mg total) by mouth every 6 (six) hours as needed for itching or allergies. MAY CAUSE DROWSINESS. HOLD hydroxyzine while taking this medication. 15 capsule 01/02/2023 Active doxepin 3 mg oral tablet (9 sources) Tricyclic Antidepressant Start: 02-25-2025 End: 03-27-2025 take 1 tablet by mouth at bedtime doxepin (Silenor) 3 MG tablet Indications: Primary insomnia Take 1 tablet (3 mg) by mouth at bedtime 30 tablet 2 02/25/2025 03/27/2025 Active [id number] 0.3 ml EPINEPHrine 1 mg/ml auto-injector (20 sources) alpha-Adrenergic Agonist, beta-Adrenergic Agonist, Catecholamine Start: 10-12-2024 Start: 07-07-2024 EPINEPHrine (E PIPEN) 0.3 mg/0.3 mL auto-injector Indications: Allergic reaction, initial encounter Inject 0.3 mL (0.3 mg total) into the appropriate muscle as needed (As needed for allergic reaction) for up to 1 dose. 1 each 07/07/2024 Active ergocalciferol 1.25 mg oral capsule (20 sources) Provitamin D2 Compound Start: 10-25-2021 End: 03-22-2025 take 1 capsule by mouth every week ergocalciferol (DRISDOL) 1,250 mcg (50,000 unit) capsule TAKE ONE CAPSULE BY MOUTH ONCE WEEKLY 5 capsule 5 03/22/2025 Active Start: 10-25-2021 take 1 capsule by mo uth every week ergocalciferol 50,000 intl units Cap 50,000 International_Unit = 1 cap(s), Oral, qWeek, Refills(s) 0, Prophylaxis Start Date: 10/25/21 Status: Ordered Start: 06-14-2021 Start: 06-14-2021 take 19521 ug by colin th every week Ergocalciferol (Vitamin D2) Active 31804 MCG PO every week June 14, 2021 [...] day(s), # 90 tab(s), Refills(s) 0, [facility]acy: [id number], 163, cm, 10/29/22 14:56:00 EDT, Height/Length Dosing, 77.3, kg, 10/29/22 14:56:00 EDT, Weight Dosing Start Date: 10/29/22 Stop Date: 01/27/23 Status: Ordered 1.5 ml fremanezumab-vfrm 150 mg/ml prefilled syringe (20 sources) Start: 10-12-2024 Start: 12-24-2023 End: 12-19-2025 Ajovy 225 MG/1.5ML auto-inje ctor Indications: Intractable chronic migraine without aura and without status migrainosus INJECT 1 PEN (225 MG) UNDER THE SKIN EVERY 30 (THIRTY) DAYS 1.5 mL 12/19/2024 12/19/2025 Active Start: 02-09-2023 inject 1.5 mL by [...] Migraine headache Start Date: 10/25/21 Status: Ordered Repeat number: 1 Ajovy 225 MG/1.5 ML 1.5 mL Subcutaneous Active furosemide 20 mg oral tablet (20 sources) Loop Diuretic Start: 06-14-2021 End: 12-22-2024 take 1 tablet by mouth once daily furosemide (LASIX) 20 mg tablet TAKE ONE TABLET BY MOUTH ONCE DAILY 30 tablet 11 12/22/2024 Active glimepiride 4 mg oral tablet (20 sources) Sulfonylurea Start: 09-04-2021 take 1 tablet by mouth once daily glimepiride 4 mg Tab 4 mg = 1 tab(s), Oral, Daily, Refills(s) 0, Blood glucose Start Date: 09/04/21 Status: Ordered Start: 06-14-2021 End: 10-12-2024 take 1 tablet by mouth twice daily Glimepiride 4 mg tablet Discontinued 4 MG PO Twice daily June 14, 2021 12:00am October 12, 2024 4:02pm isopropyl alcohol 0.7 ml/ml medicated pad (20 sources) Start: 10-22-2024 alcohol swabs (ALCOHOL PADS) pads, medicated Indications: Type 2 diabetes mellitus with hyperglycemia, without long-term current use of insulin ([facility]) APPLY 1 PAD TOPICALLY EVERY 14 (FOURTEEN) DAYS. CLEAN AREA PRIOR TO PLACING SENSOR 40 each 10/22/2024 Active Start: 09-21-2024 End: 10-22-2024 alcohol swabs (ALCOHOL PREP PADS) pads, medicated Indications: Type 2 diabetes mellitus with hyperglycemia, without long-term current use of insulin ([facility]) Apply 1 Pad topically every 14 (fourteen) days. Clean area prior to placing sensor 40 each 09/21/2024 10/22/2024 Discontinued Start: 05-06-2024 End: 09-19-2024 alcohol swabs (ALCOHOL [...] times a day. 400 g 10/22/2022 Active lidocaine 0.05 mg/mg topical ointment (20 sources) Antiarrhythmic, Amide Local Anesthetic Start: 12-07-2024 lidocaine (XYLOCAINE ) 5 % ointment 12/07/2024 Active Start: 10-23-2024 lidocaine (Xyl ocaine) 5 % ointment Indications: Lumbar radiculopathy , PHN (postherpetic neuralgia) , Diabetic peripheral neuropathy (HCC) APPLY TO THE AFFECTED AREA THREE TIMES DAILY NEEDED FOR PAIN 150 g 4 10/23/2024 Active Start: 10-22-2024 lidocaine (Xyl ocaine) 5 % ointment Indications: Lumbar radiculopathy , PHN (postherpetic neuralgia) (CMS/HCC) , Diabetic peripheral neuropathy (CMS/HCC) APPLY TO THE AFFECTED AREA(S) THREE TIMES DAILY NEEDED for moderate pain (for both feet and back-lumbar and cervicle areas) FOR 15 DAYS 240 g 4 10/22/2024 Active Start: 10-12-2024 Start: 09-16-2024 lidocaine (Xyl ocaine) 5 % ointment Start: 09-08-2024 End: 03-16-2025 RECTICARE 5 % cream 10/07/19 25 03/16/2025 Discontinued (Therapy completed) Start: 08-04-2024 Lidocaine, Ano rectal, 5 % cream 08/04/2024 Active Start: 08-04-2024 End: 08-10-2024 Lidocaine 5 % cream Indicati ons: PHN (postherpetic neuralgia) (CMS/HCC) Apply a dime size amount to area BID Prn 60 g 11 08/04/2024 08/10/2024 Discontinued (Therapy completed) Start: 01-31-2024 End: 10-26-2024 apply 1 dose transdermal route once daily, then apply 1 dose transdermal route every twelve hours lidocaine (LIDODERM) 5 % Place 1 patch on the skin daily. Remove & Discard patch within 12 hours or as directed by MD 30 patch 01/31/2024 10/26/2024 Discontinued (Therapy completed) Start: 07-22-2023 lidocaine (Lid oderm) 5 % [...] oral capsule (20 sources) Opioid Agonist Start: 04-12-2025 take 1 capsule by mouth every twenty-four hours loperamide (IMODIUM) 2 mg capsule TAKE 2 CAPSULES BY MOUTH AFTER 1ST LOOSE STOOL AND 1 CAPSULE AFTER EACH NEXT BOWEL MOVEMENT; DO NOT EXCEED 16MG (8 CAPSULES) IN 24 HOURS 20 capsule 1 04/12/2025 Active Start: 12-20-2022 End: 04-12-2025 take 1 capsule by mouth every twenty-four hours loperamide (IMODIUM) 2 mg capsule TAKE 2 CAPSULES BY MOUTH AFTER 1ST LOOSE STOOL AND 1 CAPSULE AFTER EACH NEXT BOWEL MOVEMENT; DO NOT EXCEED 16MG (8 CAPSULES) IN 24 HOURS 20 capsule 1 03/12/2025 04/12/2025 Discontinued (Reorder) Start: 10-29-2022 End: 11-28-2022 Imodium 2 mg oral capsule 2 mg = 1 cap(s), Oral, q6hr, PRN as needed for loose stool, not to exceed 8 capsules, or 16 mg, in 24 hours, X 30 day(s), # 120 cap(s), Refills(s) 0, [facility]acy: [id number], 163, cm, 10/29/22 14:56:00 EDT, Height/Length Dosing, 77.3, kg,... Start Date: 10/29/22 Stop Date: 11/28/22 Status: Ordered Start: 06-14-2021 take 1 capsule by mo uth twice daily as needed Start: 07-12-2020 take 1 tablet by colin th twice daily as needed for diarrhea Imodium A-D 2 mg oral tablet See Instructions, PRN Diarrhea, 2 mg Oral BID and 2mg after each loose stool, # 120 tab(s), Refills(s) 6, Pharmacy: [id number], 162, cm, 03/30/20 10:05:00 EDT, Height/Length Dosing, 74.2, kg, 03/30/20 10:05:00 EDT, Weight Dosing Start Date: 07/12/20 Status: Ordered Quantity: 120.0 Unit: tab(s) Repeat number: 7 meclizine hydrochloride 25 mg oral tablet (20 [...] PRN Dizziness Start Date: 10/22/18 Status: Ordered Repeat number: 1 take 1 tablet by colin th every twenty-four hours Meclizine HCl 25 MG 1 tablet as needed Orally Once a day Active metFORMIN hydrochloride 500 mg oral tablet (20 sources) Biguanide Start: 05-06-2023 End: 04-15-2025 take 1 tablet by mouth once daily at breakfast metFORMIN (GLUCOPHAGE) 500 mg tablet Indications: Type 2 diabetes mellitus with diabetic mononeuropathy, without long-term current use of insulin ([facility]) TAKE 1 TABLET (500 MG TOTAL) BY MOUTH DAILY WITH BREAKFAST. 30 tablet 5 04/15/2025 Active Start: 09-20-2022 take 1 tablet by colin twice daily metformin 500 mg Tab TAKE ONE TABLET BY MOUTH TWICE A DAY Start Date: 09/20/22 Status: Ordered 24 hr mirabegron 50 mg extended release oral tablet (3 sources) beta3-Adrenergic Agonist Start: 01-21-2025 End: 01-16-2026 take 1 tablet by mouth once daily Myrbetriq 50 mg oral tablet, extended release 50 mg = 1 tab(s), Oral, Daily, X 30 day(s), # 30 tab(s), Refills(s) 11, Pharmacy: [id number], 163, cm, 01/21/25 11:57:00 EDT, Height/Length Dosing, 70, kg, 01/21/25 11:57:00 EDT, Weight Dosing Start Date: 01/21/25 Stop Date: 01/16/26 Status: Ordered Quantity: 30.0 Unit: tab(s) Repeat number: 12 montelukast 10 mg oral tablet (20 sources) Leukotriene Receptor Antagonist Start: 06-14-2021 End: 03-22-2025 take 1 tablet by mouth once daily in the evening montelukast (SINGULAIR) 10 mg tablet TAKE ONE TABLET BY MOUTH DAILY IN THE EVENING 30 tablet 11 03/22/2025 Active enmotzns-wymm-FO- calcium &mins (THERAGRAN-M) 9 mg iron-400 mcg tablet (20 sources) ovoqyenz-ctit-DK -c alcium &mins (THERAGRAN-M) 9 mg iron-400 mcg tablet Take 1 tablet by mouth in the morning. Active nabumetone 500 mg oral tablet (20 sources) Nonsteroidal Anti-inflammatory Drug Start: 12-25-2024 End: 02-24-2025 Start: 11-28-2023 End: 04-14-2024 take 1 tablet by mouth twice daily as needed for pain nabumetone (Relafen) 750 MG tablet TAKE 1 TABLET (750 MG TOTAL) BY MOUTH 2 (TWO) TIMES A DAY NEEDED FOR PAIN. 11/28/2023 04/14/2024 Discontinued (Med list cleanup) Start: 09-17-2023 nabumetone 750 mg Tab Refills(s) 0 Start Date: 09/17/23 Status: Ordered naloxone (NARCAN) 4 mg/actuation spray,non-aerosol nasal spray (14 sources) Start: 02-24-2025 naloxone (NARCAN) 4 mg/actuation spray,non-aerosol nasal spray Administer 1 spray (4 mg total) into alternating nostrils as needed for opioid reversal. 2 each 1 02/24/2025 Active Naltrexone (7 sources) Opioid Antagonist Start: 03-05-2024 take 1 tablet by mouth once daily naltrexone 1.5 mg oral capsule See Instructions, take one tablet daily, # 30 tab(s), Refills(s) 0, Pharmacy: [facility], 163, cm, 03/05/24 15:26:00 EDT, Height/Length Dosing, 72.8, kg, 03/05/24 15:26:00 EDT, Weight Dosing Start Date: 03/05/24 Status: Ordered Quantity: 30.0 Unit: tab(s) Repeat number: 1 Start: 03-05-2024 take 1 tablet by colin th once daily naltrexone 1.5 mg oral capsule See Instructions, take one tablet daily, # 30 tab(s), Refills(s) 0, Pharmacy: [facility], 163, cm, 03/05/24 15:26:00 EDT, Height/Length Dosing, [...] Chronic obstructive pulmonary disease, unspecified COPD type ([facility]) 1 Tube by inhal. via small vol.nebulizer route every 6 (six) months. 1 each 1 01/25/2023 Active nebulizers misc (20 sources) Start: 01-25-2023 nebulizers misc Indications: Chronic obstructive pulmonary disease, unspecified COPD type ([facility]) 1 Unit by miscellaneous route every 6 (six) months. 1 each 1 01/25/2023 Active Nurtec ODT (20 sources) Start: 07-10-2021 take 75 mg by mouth every twenty-four hours as needed for headache Nurtec ODT 75 mg, Oral, q24hr, PRN as needed for migraine headache, Refills(s) 0 Start Date: 07/10/21 Status: Ordered Repeat number: 1 Start: 07-10-2021 take 75 mg by mouth every twenty-four hours as needed for headache Nurtec ODT 75 mg, Oral, q24hr, PRN as needed for migraine headache, Refills(s) 0 Start Date: 07/10/21 Status: Ordered nystatin [id number] unt/ml topical cream (20 sources) Polyene Antifungal Start: 03-24-2024 End: 10-27-2024 take 5 mL by mouth four times daily at bedtime nystatin (Mycostatin) [id number] UNIT/ML suspension TAKE 5ML BY MOUTH FOUR TIMES A DAY (MORNING, NOON, EVENING, BEDTIME) FOR 5 DAYS. 03/24/2024 Active Start: 06-27-2023 End: 11-11-2024 apply 15 g topically twice daily nystatin (MYCOSTATIN) cream APPLY TO AFFECTED AREA VIA TOPICAL ROUTE TWICE A DAY 15 g 1 10/27/2024 Active Start: 06-18-2023 nystatin (Myco statin) [id number] UNIT/ML suspension TAKE 5ML FOUR TIMES A DAY IN AM, NOON, EVENING, AND AT BEDTIME FOR 7 DAYS 0 06/18/2023 Active omeprazole 40 mg delayed release oral capsule (20 sources) Proton Pump Inhibitor Start: 11-06-2023 take 40 mg by mouth once daily omeprazole 40 mg, Oral, Daily, Refills(s) 0 Start Date: 11/06/23 Status: Ordered Repeat number: 1 Start: 06-22-2015 End: 03-22-2025 take 1 capsule by mouth once daily before mealtime omeprazole (PriLOSEC) 40 mg capsule TAKE ONE CAPSULE BY MOUTH ONCE DAILY BEFORE MEAL 30 capsule 5 03/22/2025 Active take 1 capsule by wi ut once daily PriLOSEC 40 MG 1 capsule Orally Once a day Active ondansetron 4 mg disintegrating oral tablet (20 sources) Serotonin-3 Receptor Antagonist Start: 08-26-2024 ondansetron 4 mg, SubLingual, PRN as needed for nausea/vomiting, Refills(s) 0 Start Date: 08/26/24 Status: Ordered Repeat number: 1 Start: 08-26-2024 ondansetron 4 mg, SubLingual, PRN [...] tablet 04/27/2024 05/04/2024 Active Start: 12-16-2023 End: 04-08-2025 take 1 tablet by mouth every eight hours as needed for nausea and vomiting ondansetron ODT (ZOFRAN ODT) 4 mg disintegrating tablet Dissolve 1 tablet (4 mg total) on tongue every 8 (eight) hours as needed for nausea or vomiting. 10 tablet 1 04/08/2025 Active Start: 10-29-2022 End: 11-08-2022 take 1 tablet by mouth every twelve hours as needed for nausea and vomiting ondansetron (Zofran) 4 MG tablet TAKE 1 TABLET BY MOUTH EVERY 12 HOURS FOR 10 DAYS NEEDED FOR NAUSEA AND VOMITING 10/29/2022 Active Start: 06-14-2021 take 1 tablet by colin th every six hours as needed for nausea Zofran Active Oxygen (18 sources) oxygen Inhale continuously. Active Oxygen - for Home (20 sources) Start: 2 Oxygen - for Home 3 L/min, Nasal Cannula, Daily, Refill(s) 0, Oxygen - Continuous or Nocturnal Diagnosis: Portable 02 for physician visits, oxygen conservation Start Date: 10/25/21 Status: Ordered Oxygen 2 liters (6 sources) Oxygen 2 liters 2.5 liters continuous Active pantoprazole 40 mg delayed release oral tablet (8 sources) Proton Pump Inhibitor Start: 3 End: 3 take 1 tablet by mouth once daily Pantoprazole [address] Tab 40 mg = 1 tab(s), Oral, Daily, X 90 day(s), # 90 tab(s), Refills(s) 0, [id number], 163, cm, 09/14/22 13:14:00 EST, Height/Length Dosing, 79.6, kg, 09/14/22 13:14:00 EST, Weight Dosing Start Date: 09/14/22 Stop Date: 12/13/22 Status: Ordered polyethylene glycol 3350 [id number] mg / potassium chloride 1480 mg / sodium bicarbonate 5720 mg / sodium chloride 32812 mg powder for oral solution (11 sources) Osmotic Laxative Start: 3 take 2 doses by mouth once daily [...] sources) Nonergot Dopamine Agonist Start: 06-14-2021 take 2 tablets by mouth once daily at bedtime Start: 06-14-2021 take 1 tablet by colin th twice daily Start: 06-14-2021 take 3 mg by mouth o nce daily at bedtime Pramipexole Active 3 MG PO Daily at bedtime June 14, 2021 12:00am Start: 09-11-2018 take [...] vomiting, # 90 tab(s), Refills(s) 0, Pharmacy: [id number], 162, cm, 05/15/22 13:20:00 EDT, Height/Length Dosing, 79, kg, 05/15/22 13:20:00 EDT, Weight Dosing Start Date: 09/05/22 Status: Ordered psyllium 520 mg oral capsule (11 sources) Start: 03-10-2025 take 1 capsule by mouth at bedtime psyllium (METAMUCIL) 0.52 gram capsule Indications: Altered bowel habits , Incontinence of feces with fecal urgency Take 1 capsule (0.52 g total) by mouth in the morning and at bedtime. 60 capsule 1 03/10/2025 Active rifAXIMin 550 mg oral tablet (12 sources) Rifamycin Antibacterial Start: 06-14-2021 take 1 tablet by mouth three times daily as needed for diarrhea take 1 tablet by mouth every twe lve hours Xifaxan 550 MG 1 tablet Orally Twice a day Active rimegepant 75 mg disintegrating oral tablet (20 sources) Start: 02-25-2025 End: 03-27-2025 take 1 tablet by mouth once daily as needed Rimegepant Sulfate (Nurtec) 75 MG tablet dispersible Indications: Intractable chronic migraine without aura and without status migrainosus Take 75 mg by mouth Daily as needed (Migraines) 8 tablet 11 02/25/2025 03/27/2025 Active Start: 07-14-2024 End: 08-10-2024 Nurtec 75 MG tablet dispersi ble DISSOLVE 1 TABLET ON THE TONGUE AT ONSET OF MIGRAINE NEEDED MUST LAST 30 DAYS 07/14/2024 08/10/2024 Discontinued (Reorder) Start: 11-06-2023 End: 06-07-2024 Rimegepant Sulfate (Nurtec) 75 MG tablet dispersible Indications: Intractable chronic migraine without aura and without status migrainosus (CMS/HCC) Place 75 mg under the tongue if needed (at the onset of migraine) 8 tablet 11 05/08/2024 06/07/2024 Active Start: 06-14-2021 End: 12-16-2024 take 1 tablet by mouth once Rimegepant Sulfate (Nurtec ) 75 MG tablet dispersible Indications: Intractable chronic migraine without aura and without status migrainosus (CMS/HCC) Take 75 mg by mouth 1 (one) time if needed (at onset of migraine.) 8 tablet 11 11/16/2024 12/16/2024 Active simvastatin 40 mg oral tablet (2 [...] Daily, # 90 tab(s), Refills(s) 3, Pharmacy: [facility], 163, cm, 09/17/23 8:25:00 EST, Height/Length Dosing, 81, kg, 09/17/23 8:25:00 EST, Weight Dosing Start Date: 09/17/23 Status: Ordered Start: 09-04-2021 take 1 tablet by colin th once daily Vesicare 10 mg Tab 10 mg = 1 tab(s), Oral, Daily, # 30 tab(s), Refills(s) 5, Pharmacy: [facility], 163, cm, 04/09/22 14:41:00 EDT, Height/Length [...] bedtime. 04/30/2024 Active tiZANidine 4 mg oral capsule (11 sources) Central alpha-2 Adrenergic Agonist Start: 10-12-2022 End: 10-17-2022 take 1 capsule by mouth three times daily Zanaflex 4 mg oral capsule 4 mg = 1 cap(s), Oral, TID, X 5 day(s), # 15 cap(s), Refills(s) 0 Start Date: 10/12/22 Stop Date: 10/17/22 Status: Ordered Start: 06-14-2021 End: 12-07-2021 take 1 tablet by mouth every eight hours as needed for muscle spasms Tizanidine 4 mg tablet Discontinued 4 MG PO Q8H as needed for muscle spasms June 14, 2021 12:00am December 07, 2021 10:36am take 1 tablet by colin th every six hours as needed tiZANidine (Zanaflex) 4 MG tablet Take 4 mg by mouth every 6 (six) hours if needed for muscle spasms 0 Active traMADol hydrochloride 50 mg oral tablet (20 sources) Opioid Agonist Start: 04-12-2025 take 1 tablet by mouth every eight hours as needed for pain traMADoL (ULTRAM) 50 mg tablet Indications: Complex tear of medial meniscus of left knee, sequela Take 1 tablet (50 mg total) by mouth every 8 (eight) hours as needed for pain. 20 tablet 04/12/2025 Active Start: 12-01-2024 End: 04-12-2025 take 1 tablet by mouth every eight hours as needed for pain traMADoL (ULTRAM) 50 mg tablet Indications: Complex tear of medial meniscus of left knee, sequela Take 1 tablet (50 mg total) by mouth every 8 (eight) hours as needed for pain. 20 tablet 04/05/2025 04/12/2025 Discontinued (Reorder) Start: 09-20-2023 End: 10-04-2023 take 1 tablet [...] 0, COPD Start Date: 04/28/18 Status: Ordered Repeat number: 1 Start: 04-28-2018 take 2 puff(s) by in halation four times daily Ventolin HFA 90 mcg/inh [...] 0, Prophylaxis Start Date: 10/25/21 Status: Ordered Repeat number: 1 Start: 10-25-2021 take 1 tablet by colin th once daily Vitamin B1 100 mg Tab 100 mg = 1 tab(s), Oral, Daily, Refills(s) 0, Prophylaxis Start Date: 10/25/21 Status: Ordered Vitamin D (6 sources) Vitamin D 50,000 U Active Zavegepant HCl (Zavzpret) 10 MG/ACT solution (5 sources) Start: 11-13-2024 End: 12-13-2024 take 10 mg nasal route once daily as needed Zavegepant HCl (Zavzpret) 10 MG/ACT solution Indications: Intractable chronic migraine without aura and without status migrainosus (CMS/HCC) Administer 10 mg into affected nostril(s) Daily as needed (Migraine) 6 each 11 11/13/2024 12/13/2024 Active Completed/Discontinued Medications Medication Drug Class(es) Dates Sig (Normalized) Sig (Original) acetaminophen 325 mg / oxyCODONE hydrochloride 10 mg oral tablet (20 sources) Opioid Agonist Start: 12-17-2024 End: 02-24-2025 take 1 tablet by mouth every six hours as needed for pain oxyCODONE-acetamino phen (PERCOCET) 10-325 mg per tablet TAKE 1 TABLET BY MOUTH EVERY 6 HOURS NEEDED for severe pain for up to 5 (FIVE) days 12/18/2024 02/24/2025 Discontinued (Therapy completed) Start: 08-26-2024 End: 09-15-2024 take 1 tablet by mouth every eight hours as needed oxyCODONE-acetaminophen (PERCOCET) 5-325 mg per tablet Take 1 tablet by mouth every 8 (eight) hours as needed. Max Daily Amount: 3 tablets 08/26/2024 09/15/2024 Active Start: 08-26-2024 take 1 tablet by colin th every four hours for pain acetaminophen-oxycodone 325 mg-5 mg Tab 1 tab(s), Oral, q4hr for pain, Refill(s) 0 Start Date: 08/26/24 Status: Ordered Repeat number: 1 Start: 08-03-2024 End: 12-17-2024 take 1 tablet by mouth every six hours as needed Start: 04-21-2024 End: 04-28-2024 take 1 tablet [...] 0, Pain Start Date: 11/07/21 Status: Ordered albuterol 0.833 mg/ml / ipratropium bromide 0.167 mg/ml inhalation solution (19 sources) Anticholinergic, beta2-Adrenergic Agonist End: 12-15-2024 take 3 mL by inhalation every four hours as needed ipratropium-albuteroL (DUONEB) 0.5 mg-3 mg(2.5 mg base)/3 mL nebulizer Inhale 3 mL by nebulization every 4 (four) hours as needed. 12/15/2024 Discontinued (Therapy completed) baclofen 10 mg oral tablet (14 sources) gamma-Aminobutyric Acid-ergic Agonist Start: 01-02-2025 End: 01-02-2025 take 1 tablet by mouth three times daily Baclofen 10 mg tablet Discontinued 10 MG PO Three times daily January 02, 2025 12:00am January 02, 2025 12:41pm Start: 12-15-2024 take 1 tablet by colin th three times daily baclofen (LIORESAL) 10 mg tablet Take 1 tablet (10 mg total) by mouth 3 (three) times a day. 90 tablet 1 12/15/2024 Active Start: 12-02-2023 End: 04-14-2024 baclofen (Lioresal) 5 MG tab let 12/02/2023 04/14/2024 Discontinued (Med list cleanup) benzonatate 100 mg oral capsule (14 sources) Non-narcotic Antitussive Start: 07-10-2023 End: 04-21-2024 take 1 capsule by mouth three times daily as needed for cough benzonatate (Tessalon) 100 MG capsule Take 100 mg by mouth 3 (three) times a day as needed for cough 07/10/2023 04/21/2024 Discontinued (Med list cleanup) biotin 10 mg oral capsule (20 sources) Start: 04-27-2024 End: 04-22-2025 take 1 capsule by mouth in the morning biotin 10 MG capsule Indications: Intractable chronic migraine without aura and without status migrainosus (CMS/HCC) , Diabetic peripheral neuropathy (CMS/HCC) Take 1 capsule (10 mg) by mouth in the morning and 1 capsule (10 mg) before bedtime. 60 capsule 11 04/27/2024 08/10/2024 Discontinued (Therapy completed) [place] [facility] [place] Start: 09-23-2024 End: 02-24-2025 blood-glucose [place] ([place]2 MET[place] [facility] [place]: Diabetes mellitus without complication (CMS-HCC) 1 Unit by miscellaneous route in the morning. 1 each 09/23/2024 02/24/2025 Discontinued (Therapy completed) Start: 09-23-2024 blood-glucose [place] (ONET[place]CH [place]TRA2 METER[place] [facility] [place]: Diabetes mellitus without complication (CMS-HCC) 1 Unit by miscellaneous route in the morning. 1 each 09/23/2024 Active Cellulose (10 sources) Start: 03-06-2024 End: 04-14-2024 [...] (10 sources) Bile Acid Sequestrant Start: 06-06-2023 End: 04-14-2024 cholestyramine (Questran) 4 GM/DOSE powder TAKE 9 G OF BULK POWDER (4 G TOTAL) BY MOUTH IN THE MORNING AND 9 G OF BULK POWDER (4 G TOTAL) IN THE EVENING. TAKE WITH MEALS. 06/06/2023 04/14/2024 Discontinued (Med list cleanup) clomiPRAMINE hydrochloride 50 mg oral capsule (20 sources) Tricyclic Antidepressant End: 11-11-2024 take 1 capsule by mouth once daily clomiPRAMINE (Anafranil) 50 MG capsule Take 50 mg by mouth 1 (one) time each day at the same time. 11/11/2024 Discontinued take 150 mg by mouth once daily [...] daily at bedtime. Active Continuous Blood Gluc Receiv er (Dexcom G6 backhaul driver) device (11 sources) Start: 10-24-2022 End: 04-12-2024 Continuous Blood Gluc Receiv er (Dexcom G6 backhaul driver) device 1 UNIT YEARLY 10/24/2022 04/12/2024 Discontinued (Discontinued by another clinician) Start: 10-24-2022 Continuous Blo od Gluc Inside Wirer (Dexcom G6 backhaul driver) device 1 UNIT YEARLY 10/24/2022 Active Start: 10-24-2022 Continuous Blo od Gluc Inside Wirer (Dexcom G6 backhaul driver) device 1 UNIT YEARLY 0 10/24/2022 Active [...] 01/21/2023 Active desoximetasone 0.5 mg/ml topical cream (6 sources) Corticosteroid Start: 06-14-2021 End: 12-07-2021 Desoximetasone 0.05 % cream Discontinued 0.05 APPLIC TOPICAL Twice daily June [...] clinician) diclofenac sodium 0.01 mg/mg topical gel (6 sources) Nonsteroidal Anti-inflammatory Drug Start: 06-14-2021 End: 12-07-2021 Diclofenac Sodium 1 % gel Discontinued 1 EACH TOPICAL Twice daily June 14, 2021 12:00am December 07, 2021 10:27am dicyclomine hydrochloride 20 mg oral tablet (20 sources) Anticholinergic Start: 12-02-2023 End: 08-10-2024 dicyclomine (Bentyl) 20 MG tablet TAKE 1 TABLET BY MOUTH EVERY 6 TO 8 HOURS NEEDED FOR CRAMPS 12/02/2023 08/10/2024 Discontinued (Therapy completed) Start: 06-14-2021 take 1 tablet by colin th four times daily take 1 tablet by colin th every eight hours Dicyclomine HCl 20 MG 1 tablet Orally Three times a day Active 1 ml erenumab-aooe 140 mg/ml auto-injector (8 sources) Start: 06-14-2021 End: 12-07-2021 inject 140 mg by subcutaneous injection every month Erenumab-Aooe (Aimovig Autoinjector) 140 mg/mL auto-injector Discontinued 140 MG SUBCUT every month June 14, 2021 12:00am December 07, 2021 10:28am takes on the of every month ferrous sulfate (10 sources) End: 04-14-2024 take 1 tablet by mouth in the morning Ferrous Sulfate (IRON PO) Take 1 tablet by mouth in the morning. 04/14/2024 Discontinued (Med list cleanup) take 1 tablet by mouth in the mo rning Ferrous Sulfate (IRON PO) Take 1 tablet by mouth in the morning. Active flash glucose scanning reade r (FREESTYLE ILLLIAM 14 DAY READER) misc (20 sources) Start: 08-21-2024 End: 02-24-2025 flash glucose scanning reade r (FREESTYLE [place] 14 DAY READER[place] [facility] [place]: Diabetes mellitus without complication (CMS-HCC) 1 Unit by miscellaneous route every 14 (fourteen) days. 2 each 5 08/21/2024 02/24/2025 Discontinued (Therapy completed) Start: 08-21-2024 flash glucose scanning reader (FREESTYLE [place]ILLIAM 14 DAY READER[place] [facility] [place]ications: Diabetes mellitus without complication (CMS-HCC) 1 Unit by miscellaneous route every 14 [...] DAY SENSOR) kit (20 sources) Start: 02-27-2024 End: 02-24-2025 flash glucose sensor (FREEST YLE LILLIAM 14 DAY SENSOR) kit 1 each by miscellaneous route every 14 (fourteen) days. 6 kit 1 02/27/2024 02/24/2025 Discontinued (Therapy completed) Start: 02-27-2024 flash glucose sensor (FREESTYLE LILLIAM 14 DAY SENSOR) kit 1 each by miscellaneous route every 14 (fourteen) days. 6 kit 1 02/27/2024 Active glycopyrrolate 2 mg oral tablet (20 sources) Start: 03-09-2024 End: 11-11-2024 take 1 tablet by mouth at bedtime glycopyrrolate (Robinul) 2 MG tablet TAKE 1 TABLET (2 MG) BY MOUTH AT BEDTIME 03/27/2024 11/11/2024 Discontinued Start: 02-26-2024 End: 04-12-2024 take 2 tablets by mouth at bedtime glycopyrrolate (Robinul) 1 MG tablet Take 2 mg by mouth at bedtime 02/26/2024 04/12/2024 Discontinued (Discontinued by another clinician) hydrOXYzine hydrochloride 25 mg oral tablet (20 [...] tablet 3 09/18/2023 10/18/2023 Active Start: 06-14-2021 End: 10-12-2024 take 1 tablet by mouth four times daily Hydroxyzine Hcl 50 mg tablet Discontinued 50 MG PO Four times daily June 14, 2021 12:00am October 12, 2024 4:02pm Start: 10-12-2019 take 50 mg by mouth [...] Active imipramine hydrochloride 25 mg oral tablet (19 sources) Tricyclic Antidepressant Start: 05-18-2024 End: 12-15-2024 take 1 tablet by mouth once daily imipramine (TOFRANIL) 25 mg tablet Indications: Fibromyalgia Take 1 tablet (25 mg total) by mouth nightly. 30 tablet 5 05/18/2024 12/15/2024 Discontinued (Side effects) Injovy (6 sources) Start: 12-07-2021 End: 10-12-2024 Injovy Discontinued 1 syringe IM every month December 07, 2021 12:00am October 12, 2024 4:01pm Start: 12-07-2021 End: 10-12-2024 Injovy Discontinued 1 syring e IM every month December 06, 2021 11:00pm October 12, 2024 3:01pm Start: 12-07-2021 Injovy Active 1 syringe IM every month December 07, 2021 12:00am lemborexant 5 mg oral tablet (19 sources) Start: 07-27-2024 End: 12-15-2024 lemborexant 5 mg tablet Indications: Fibromyalgia One tab at bed time 30 tablet 5 07/27/2024 12/15/2024 Discontinued (Therapy completed) nortriptyline 25 mg oral capsule (20 sources) Tricyclic Antidepressant Start: 09-20-2022 End: 11-11-2024 nortriptyline (Pamelor) 25 MG capsule Take 25 mg by mouth in the morning and 25 mg at noon and 25 mg in the evening and 25 mg before bedtime. 09/20/2022 11/11/2024 Discontinued Start: 06-14-2021 End: 10-12-2024 take 1 capsule by mouth once daily at bedtime Nortriptyline 25 mg capsule Discontinued 75 MG PO Daily at bedtime June 14, 2021 12:00am October 12, 2024 4:01pm Start: 06-14-2021 take 75 mg by mouth once daily at bedtime Nortriptyline Active 75 MG PO Daily at bedtime June 14, 2021 12:00am nystatin [id number] unt/ml / triamcinolone acetonide 1 mg/ml topical cream (11 sources) Polyene Antifungal, Corticosteroid Start: 05-08-2022 End: 04-12-2024 nystatin-triamcinolone (Mycolog II) cream APPLY 1 APPLICATION TOPICALLY IN THE MORNING AND 1 APPLICATION AT NOON AND 1 APPLICATION IN THE EVENING AND 1 APPLICATION BEFORE BEDTIME. 05/08/2022 04/12/2024 Discontinued (Discontinued by another clinician) 12 hr orphenadrine citrate 100 mg extended release oral tablet (20 sources) Muscle Relaxant Start: 07-27-2024 End: 12-15-2024 take 1 tablet by mouth in the morning, then take 1 tablet by mouth every twelve hours in the evening orphenadrine (NORFLEX) 100 mg 12 hr tablet Indications: Fibromyalgia Take 1 tablet (100 mg total) by mouth in the morning. One tab at 8 PM. 30 tablet 5 07/27/2024 12/15/2024 Discontinued Start: 06-14-2021 End: 12-07-2021 take 1 tablet by mouth twice daily Orphenadrine Citrate 100 mg tablet extended release Discontinued 100 MG PO Twice daily June 14, 2021 12:00am December 07, 2021 10:33am pilocarpine hydrochloride 5 mg oral tablet (20 [...] a day for 9 days Aug, Active primidone 50 mg oral tablet (20 sources) Anti-epileptic Agent Start: 11-16-2024 End: 02-25-2025 take 0.5 tablet by mouth at bedtime primidone (Mysoline) 50 MG tablet Indications: Intractable chronic migraine without aura and without status migrainosus Take 0.5 tablets (25 mg) by mouth at bedtime 15 tablet 2 11/16/2024 02/25/2025 Discontinued (Therapy completed) QUEtiapine 50 mg oral tablet (6 sources) Atypical Antipsychotic Start: 06-14-2021 End: 12-07-2021 [...] 0, Prophylaxis Start Date: 05/07/18 Status: Ordered Repeat number: 1 Start: 05-07-2018 take 1 capsule by mouth once V itamin D 50,000 intl units (1.25 mg) oral capsule 50,000 International_Unit = 1 cap(s), Oral, Saturday, Refills(s) 0, Prophylaxis Start Date: 05/07/18 Status: Ordered zonisamide 25 mg oral capsule (20 sources) Anti-epileptic Agent Start: 05-11-2024 End: 05-11-2025 take 1 capsule by mouth once daily zonisamide (Zonegran) 25 MG capsule Indications: Intractable chronic migraine without aura and without status migrainosus (CMS/HCC) , Diabetic peripheral neuropathy (CMS/HCC) Take 1 capsule (25 mg) by mouth Daily 30 capsule 11 05/11/2024 11/11/2024 Discontinued Problems Active Problems Problem Classification Problem Date Documented Date Episodic/Chronic Abdominal pain (20 sources) Flank pain; Translations: [Unspecified abdominal pain] Onset: 3 04-09-2022 Episodic Acquired foot deformities (20 sources) Hammer toe; Translations: [Other hammer toe(s) (acquired), right foot] Onset: 3 02-25-2023 Chronic Acquired foot deformities (8 sources) Acquired deformity of toe of right foot; Translations: [Acquired deformities of toe(s), unspecified, right foot] 06-18-2024 Episodic Acute myocardial infarction (20 sources) Myocardial infarction; Translations: [Acute myocardial infarction, [...] diabetes mellitus with diabetic polyneuropathy] Onset: 2 09-20-2023 Chronic Diabetes mellitus without complication (20 sources) Diabetes mellitus; Translations: [Type 2 diabetes mellitus] Onset: 2 04-28-2018 Chronic Digestive congenital anomalies (20 sources) Finding of esophagus 05-09-2022 Chronic Diseases of white blood cells (20 sources) Leukocytosis; Translations: [Elevated white blood cell count, unspecified] Onset: 3 02-25-2023 Chronic Disorders of lipid metabolism (20 sources) [...] derangement of left knee] Onset: 4 Chronic Joint disorders and dislocations; trauma-related (10 sources) Acute meniscal tear, medial; Translations: [Complex tear of medial meniscus, current injury, left knee, initial encounter] Onset: 5 04-21-2024 Episodic Miscellaneous mental health disorders (13 sources) Primary insomnia; Translations: [Primary insomnia] Onset: 5 02-25-2025 Chronic Mood disorders (20 sources) Bipolar disorder; Translations: [Depressive disorder] Onset: 1 Resolved: 5 06-16-2015 Chronic Nonspecific chest pain (3 sources) Chest pain, unspecified; Translations: [Chest wall pain] Onset: 4 02-24-2025 Episodic Osteoarthritis (20 sources) Degenerative joint disease involving multiple joints; Translations: [Osteoarthritis] Onset: 4 09-11-2018 Chronic Osteoporosis (20 sources) Osteoporosis; Translations: [Age-related osteoporosis without current pathological fracture] Onset: 3 11-16-2022 Chronic Other acquired deformities (20 sources) Contracture of joint of right ankle; Translations: [Contracture, right ankle] Onset: 3 02-25-2023 Chronic Other aftercare (4 sources) Encounter for change or removal of surgical wound dressing; Translations: [ENC CHG/REMOVAL SURG WOUND DRSG] Onset: 3 Episodic Other and ill-defined heart disease (20 sources) Diastolic dysfunction; Translations: [Heart disease, unspecified] Onset: 4 03-30-2024 Chronic Other and ill-defined heart disease (3 sources) Heart disease, unspecified Chronic Other and ill-defined heart disease (3 sources) Other ill-defined heart diseases; Translations: [Heart disease, unspecified] Onset: 5 10-12-2024 Chronic Other bone disease and musculoskeletal deformities (20 sources) Osteochondritis dissecans of right ankle; Translations: [Osteochondritis dissecans, right ankle and joints of right foot] Onset: 2 02-25-2023 Chronic Other connective tissue disease (3 sources) [...] tissue disease (2 sources) Pain in left lower limb; Translations: [Pain in left leg] 10-09-2024 Episodic Other diseases of bladder and urethra [...] 3 Episodic Other gastrointestinal disorders (2 sources) Fecal incontinence with fecal urgency; Translations: [Full incontinence of feces] 03-10-2025 Episodic Other gastrointestinal disorders (1 source) Change in bowel habit; Translations: [Change in bowel habit] Onset: 5 Episodic Other hereditary and degenerative nervous system conditions (20 sources) Restless legs; Translations: [Restless legs syndrome] Onset: 3 05-02-2023 Chronic Other lower respiratory disease (4 sources) Dyspnea on exertion; Translations: [Dyspnea, unspecified] Episodic Other lower respiratory disease (2 sources) Dyspnea; Translations: [Shortness of breath] 10-12-2024 Episodic Other nervous system disorders (20 sources) [...] Onset: 2 Chronic Other nervous system disorders (20 sources) Neuropathy; Translations: [Polyneuropathy, unspecified] Onset: 2 02-25-2023 Chronic Other nervous system disorders (20 sources) Downey neuroma of bilateral feet; Translations: [Lesion of plantar nerve, bilateral lower limbs] Onset: 3 02-25-2023 Chronic Other nervous system disorders (20 sources) Difficulty walking; Translations: [Difficulty in walking, not elsewhere classified] Onset: 2 02-25-2023 Chronic Other nervous system disorders (20 sources) Parkinsonism due to drug; Translations: [Other drug induced secondary parkinsonism] Onset: 3 05-02-2023 Chronic Other nervous system disorders (4 sources) Lesion of ulnar nerve; Translations: [Lesion of ulnar nerve, bilateral upper limbs] Onset: 3 07-08-2023 Chronic Other nervous system disorders (20 sources) Bilateral entrapment of ulnar nerves at elbow; Translations: [Lesion of ulnar nerve, bilateral upper limbs] Onset: 3 08-28-2023 Chronic Other nervous system disorders (20 sources) Lesion of ulnar nerve, bilateral upper limbs; Translations: [Lesion of ulnar nerve] Onset: 3 07-08-2023 Chronic Other nervous system disorders (20 sources) Carpal tunnel syndrome; Translations: [Carpal tunnel syndrome, unspecified upper limb] Onset: 4 03-10-2024 Chronic Other nervous system disorders (20 sources) Lesion of left ulnar nerve; Translations: [Lesion of ulnar nerve, left upper limb] Onset: 4 03-10-2024 Chronic Other nervous system disorders (7 sources) Lesion of ulnar nerve, left upper limb; Translations: [Lesion of ulnar nerve] Onset: 4 04-10-2024 Chronic Other nervous system disorders (2 sources) Carpal tunnel syndrome of left wrist; Translations: [Carpal tunnel syndrome, left upper limb] 04-13-2024 Chronic Other nervous system disorders (12 sources) Mortons neuroma of right foot; Translations: [Lesion of plantar nerve, right lower limb] 11-19-2024 Chronic Other nervous system disorders (1 source) Lesion of ulnar nerve, right upper limb; Translations: [Lesion of ulnar nerve, right upper limb] Onset: 4 Chronic Other nervous system disorders (2 sources) Carpal tunnel syndrome, left upper limb; Translations: [Carpal tunnel syndrome, left upper limb] Onset: 4 Chronic Other nervous system disorders (4 sources) Impaired cognition; Translations: [Other symptoms and signs involving cognitive functions and awareness] 09-16-2024 Episodic Other non-traumatic joint disorders (3 sources) Pain in elbow; Translations: [Pain in right elbow] 04-19-2021 Episodic Other non-traumatic joint disorders (1 source) Knee pain Onset: 5 Episodic Other non-traumatic joint disorders (2 sources) Pain in right shoulder; Translations: [Pain in joint, shoulder region] 01-25-2025 Episodic Other non-traumatic joint disorders (1 source) Ankle pain; Translations: [Pain in right ankle and joints of right foot] 01-02-2025 Episodic Other skin disorders (1 source) Asteatosis cutis; Translations: [Xerosis cutis] 05-28-2024 Episodic Other upper respiratory disease (20 sources) Allergic rhinitis; Translations: [Allergic rhinitis, unspecified] Onset: 2 02-25-2023 Chronic Peripheral and visceral atherosclerosis (20 sources) Peripheral vascular disease, unspecified; Translations: [Peripheral vascular disease, unspecified] Onset: 5 10-26-2024 Chronic Personality disorders (20 sources) Personality disorder; Translations: [Borderline personality disorder] Onset: 2 04-28-2018 Chronic Residual codes; unclassified (20 sources) Obstructive sleep apnea syndrome; Translations: [Obstructive sleep apnea (adult) (pediatric)] Onset: 3 09-11-2018 Chronic Residual codes; unclassified (20 sources) Sleep apnea; Translations: [Sleep apnea, unspecified] Onset: 3 06-16-2015 Chronic Comment on above: does not use cpap an y longer pt uses CPAP Residual codes; unclassified (2 sources) Sleep related hypoxemia; Translations: [Sleep related hypoventilation in conditions classified elsewhere] 10-12-2024 Chronic Residual codes; unclassified (2 sources) Obstructive sleep apnea (adult) (pediatric); Translations: [Obstructive sleep apnea (adult) (pediatric)] Onset: 4 Chronic Residual codes; unclassified (1 source) Sleep related hypoventilation in conditions classified elsewhere; Translations: [Sleep related hypoventilation in conditions classified elsewhere] Onset: 5 Chronic Residual codes; unclassified (20 sources) Chronic [...] UTERUS] Onset: 3 Episodic Residual codes; unclassified (4 sources) Past history of procedure; Translations: [Other specified postprocedural states] 03-30-2024 Episodic Comment on above: 1996 Residual codes; unclassified (4 sources) Tobacco user; Translations: [Tobacco use] 03-30-2024 Episodic Residual codes; unclassified (1 source) Pain; Translations: [Pain, unspecified] 04-19-2021 Episodic Skin and subcutaneous tissue infections (20 sources) Paronychia of toe of right foot; Translations: [Cellulitis of right toe] 04-05-2024 Episodic Spondylosis; intervertebral disc disorders; other back problems (20 sources) Spondylosis without myelopathy or radiculopathy, lumbosacral region; Translations: [Other intervertebral disc degeneration, lumbar region] Onset: 0 02-25-2023 Chronic Unclassified (20 sources) Finding of sensation of bladder 09-04-2021 Unclassified (20 sources) Bezoar in stomach 05-09-2022 Unclassified (20 sources) Patient encounter status 05-09-2022 Unclassified (3 sources) LOW BACK PAIN, UNSPECIFIED; Translations: [LOW BACK PAIN, UNSPECIFIED] Onset: 2 Unclassified (1 source) PAIN TOP OF STOMACH Onset: 4 Unclassified (1 source) Shoulder Injury Onset: 5 Unclassified (1 source) Controlled Substance Onset: 4 Urinary tract infections (1 source) Urinary tract infectious disease; Translations: [Urinary tract infection, site not specified] Onset: 3 Episodic Viral infection (1 source) Postherpetic neuralgia; Translations: [Other postherpetic nervous system involvement] 10-22-2024 Episodic Past or Other Problems Problem Classification Problem Date Documented Da te Episodic/Chronic Allergic reactions (1 source) Allergy, unspecified, initial encounter; Translations: [Allergy, unspecified, initial encounter] Onset: 4 Episodic Calculus of urinary tract (20 sources) History of calculus of kidney; Translations: [Personal history of urinary calculi] Onset: 4 10-25-2021 Episodic Cardiac dysrhythmias (1 source) Tachycardia, unspecified; Translations: [TACHYCARDIA UNSPECIFIED] Onset: 2 Episodic Conditions associated with dizziness or vertigo (20 sources) Dizziness; Translations: [Vertigo] Onset: 2 08-17-2015 Episodic Diseases of mouth; excluding dental (20 sources) Xerostomia; Translations: [Disturbances of salivary secretion] Onset: 1 02-25-2023 Episodic Disorders of teeth and jaw (20 sources) Arthralgia of temporomandibular joint; Translations: [Arthralgia of temporomandibular joint, unspecified side] Onset: 3 04-28-2018 Episodic Epilepsy; convulsions (2 sources) Unspecified convulsions; Translations: [Unspecified convulsions] Onset: 5 Episodic Esophageal disorders (20 sources) Dilatation of esophagus; Translations: [Dilatation of esophagus] Onset: 4 03-30-2024 Episodic Comment on above: due to esophageal st ricture Fluid and electrolyte disorders (20 sources) Hyponatremia; Translations: [Hypo-osmolality and hyponatremia] Onset: 3 02-25-2023 Episodic Fracture of upper limb (2 sources) [...] (20 sources) Headache; Translations: [Headache] Onset: 3 02-25-2023 Episodic Hemorrhoids (20 sources) Hemorrhoids; Translations: [Unspecified hemorrhoids] Onset: 3 01-29-2023 Episodic Immunizations and screening for infectious disease (20 sources) Rheumatoid factor positive; Translations: [Other specified abnormal immunological findings in serum] Onset: 4 08-10-2024 Episodic Joint disorders and dislocations; trauma-related (1 source) Other tear of medial meniscus, current injury, right knee, subsequent encounter; Translations: [OTH TEAR MED MENSC CURR RT KNEE SUB] Onset: 2 Episodic Lymphadenitis (1 source) Generalized enlarged lymph nodes; Translations: [Generalized enlarged lymph nodes] Onset: 4 Episodic Mood disorders (20 sources) Mood disorders Onset: 4 Resolved: 5 04-30-2024 Mycoses (20 sources) Candidal intertrigo; Translations: [Candidiasis of skin and nail] Onset: 5 10-26-2024 Episodic Nausea and vomiting (20 sources) Vomiting; Translations: [Nausea and vomiting] Onset: 3 11-07-2021 Episodic Nonmalignant breast conditions (4 sources) Unspecified lump in the left breast, lower outer quadrant; Translations: [UNS LUMP IN LT BREAST LW OUTR QUAD] Onset: 3 Episodic Other acquired deformities (20 sources) Deformity of metatarsal; Translations: [Unspecified acquired deformity of unspecified lower leg] Onset: 3 02-25-2023 Episodic Other aftercare (3 sources) Other alf (current) drug therapy; Translations: [OTH JAIL CURRENT DRUG THERAPY] Onset: 3 Episodic Other aftercare (20 sources) Patient encounter status; Translations: [Encounter for therapeutic drug level monitoring] Onset: 3 02-25-2023 Episodic Other aftercare (2 sources) Encounter for therapeutic drug level monitoring; Translations: [Encounter for therapeutic drug level monitoring] Onset: 5 Episodic Other and unspecified benign neoplasm (20 sources) Polyp of colon; Translations: [Polyp of colon] Onset: 3 01-29-2023 Episodic Other and unspecified benign neoplasm (1 source) Polyp of colon; Translations: [Polyp of colon] Onset: 3 Episodic Other bone disease and musculoskeletal deformities [...] density and structure, unspecified thigh] Onset: 3 02-25-2023 Episodic Other connective tissue disease (20 sources) Fibromyositis; Translations: [Fibromyalgia] Onset: 4 02-14-2015 Episodic Other connective tissue disease (20 sources) Fibromyalgia; Translations: [Fibromyalgia] Onset: 0 02-25-2023 Episodic Other connective tissue disease (3 sources) Fibromyalgia; Translations: [FIBROMYALGIA] Onset: 2 Episodic Other connective tissue disease (4 sources) Impingement syndrome of right shoulder; Translations: [IMPINGEMENT SYNDROME RIGHT SHOULDER] Onset: 2 Episodic Other connective tissue disease (20 sources) Bicipital tenosynovitis; Translations: [Bicipital tendinitis, unspecified shoulder] Onset: 4 02-25-2023 Episodic Other connective tissue disease (20 sources) Pain in limb; Translations: [Pain in unspecified limb] Onset: 1 02-25-2023 Episodic Other connective tissue disease (20 sources) Bilateral plantar fasciitis; Translations: [Plantar fascial fibromatosis] Onset: 3 02-25-2023 Episodic Other connective tissue disease (20 sources) Pain in bilateral legs; Translations: [Pain in right leg] Onset: 2 02-25-2023 Episodic Other connective tissue disease (20 sources) H/O: musculoskeletal disease; Translations: [Personal history of other diseases of the musculoskeletal system and connective tissue] Onset: 5 02-25-2023 Episodic Other connective tissue disease (20 sources) Disorder of bursa of shoulder region; Translations: [Bursopathy, unspecified] Onset: 4 02-25-2023 Episodic Other connective tissue disease (20 sources) Spasm of cervical paraspinous muscle; Translations: [Other muscle spasm] Onset: 3 05-02-2023 Episodic Other connective tissue disease (20 sources) Enthesopathy of elbow region; Translations: [Other enthesopathies, not elsewhere classified] Onset: 4 03-10-2024 Episodic Other connective tissue disease (4 sources) Pain of toe of left foot; Translations: [Pain in left toe(s)] 04-05-2024 Episodic Other connective tissue disease (4 sources) Pain of toe of right foot; Translations: [Pain in right toe(s)] 04-05-2024 Episodic Other connective tissue disease (20 sources) Myofascial pain syndrome; Translations: [Myalgia, other site] Onset: 4 07-01-2023 Episodic Other connective tissue disease (2 sources) [...] Translations: [Venous insufficiency (chronic) (peripheral)] Onset: 2 02-25-2023 Episodic Other gastrointestinal disorders (20 sources) Dysphagia; Translations: [Dysphagia, unspecified] Onset: 2 06-16-2021 Episodic Other gastrointestinal disorders (20 sources) Altered bowel function; Translations: [Change in bowel habit] Onset: 2 Episodic Other gastrointestinal disorders (20 sources) Loose stool; Translations: [Other fecal abnormalities] Onset: 3 09-14-2022 Episodic Other gastrointestinal disorders (4 sources) Diarrhea, unspecified; Translations: [DIARRHEA UNSPECIFIED] Onset: 2 Episodic Other gastrointestinal disorders (20 sources) Incontinence of feces; Translations: [Full incontinence of feces] Onset: 4 Episodic Other gastrointestinal disorders (20 sources) History of gastroesophageal reflux disease; Translations: [Personal history of other diseases of the digestive system] Onset: 5 02-25-2023 Episodic Other gastrointestinal disorders (1 source) Full incontinence of feces; Translations: [Full incontinence of feces] Onset: 4 Episodic Other gastrointestinal disorders (1 source) Fecal urgency; Translations: [Fecal urgency] Onset: 4 Episodic Other injuries and conditions [...] Translations: [Foreign body in stomach] Onset: 2 02-25-2023 Episodic Other lower respiratory disease (20 sources) History of chronic obstructive airway disease; Translations: [Personal history of other diseases of the respiratory system] Onset: 5 02-25-2023 Episodic Other lower respiratory disease (1 source) Shortness of breath; Translations: [Shortness of breath] Onset: 5 Episodic Other nervous system disorders (3 sources) Other acute postprocedural pain; Translations: [OTHER ACUTE POSTPROCEDURAL PAIN] Onset: 2 Episodic Other nervous system disorders (20 sources) Abnormal gait; Translations: [Unspecified abnormalities of gait and mobility] Onset: 3 08-28-2023 Episodic Other nervous system disorders (1 source) Unspecified abnormalities of gait and mobility; Translations: [Unspecified abnormalities of gait and mobility] Onset: 3 Episodic Other non-traumatic joint disorders (5 sources) Pain in right knee; Translations: [PAIN IN RIGHT KNEE] Onset: 2 Episodic Other non-traumatic joint disorders (1 source) Stiffness of right knee, not elsewhere classified; Translations: [STIFFNESS RIGHT KNEE NEC] Onset: 2 Episodic Other non-traumatic joint disorders (20 sources) Pain in left shoulder; Translations: [Pain in joint, shoulder region] Onset: 4 02-25-2023 Episodic Other non-traumatic joint disorders (20 sources) Pain in left knee; Translations: [Pain in joint, lower leg] Onset: 4 04-07-2024 Episodic Other non-traumatic joint disorders (4 sources) Pain of left wrist; Translations: [Pain in left wrist] 04-10-2024 Episodic Other non-traumatic joint disorders (3 sources) [...] joint disorders (1 source) Pain in right ankle and joints of right foot; Translations: [Pain in right ankle and joints of right foot] Onset: 5 Episodic Other nutritional; endocrine; and metabolic disorders (20 sources) Body mass index 30+ - obesity; Translations: [Obesity, unspecified] Onset: 2 Resolved: 5 04-09-2022 Chronic Other nutritional; endocrine; and metabolic disorders (20 sources) Overweight; Translations: [Overweight] Onset: 3 02-25-2023 Episodic Residual codes; unclassified (20 sources) Family [...] Onset: 4 03-30-2024 Episodic Residual codes; unclassified (2 sources) Contact with and (suspected) exposure to environmental tobacco smoke (acute) (chronic); Translations: [Contact with and (suspected) exposure to environmental tobacco smoke (acute) (chronic)] Onset: 5 Episodic Screening and history of mental health and substance abuse codes (20 sources) H/O: depression; Translations: [Personal history of other mental and behavioral disorders] Onset: 5 Resolved: 5 02-25-2023 Episodic Spondylosis; intervertebral disc disorders; other back problems (20 sources) Radiculopathy, cervical region; Translations: [Radiculopathy, lumbar region] Onset: 1 Episodic Sprains and strains (20 sources) Sprain of unspecified ligament of left ankle, initial encounter; Translations: [Sprain of unspecified site of left knee, initial encounter] Onset: 2 05-02-2023 Episodic Substance-related disorders (20 sources) Smoker; Translations: [Opioid dependence] Onset: 2 Resolved: 5 01-23-2020 Chronic Comment on above: Added secondary to d ocumentation in Social History. Substance-related disorders (20 sources) Continuous opioid dependence; Translations: [Opioid use, unspecified, uncomplicated] Onset: 5 Resolved: 3 02-25-2023 Episodic Superficial injury; contusion (20 sources) Contusion of sacral region; Translations: [Contusion of lower back and pelvis, initial encounter] Onset: 3 05-02-2023 Episodic Unclassified (20 sources) Bipolar (qualifier value) 09-11-2018 Unclassified (6 sources) Exposure to 2019 novel coronavirus; Translations: [Contact with and (suspected) exposure to COVID19] Unclassified (1 source) LOW BACK PAIN, UNSPECIFIED; Translations: [LOW BACK PAIN, UNSPECIFIED] Onset: 2 Unclassified (20 sources) Onset: 3 07-10-2023 Unclassified (1 source) Peripheral arterial disease (CMS-HCC) 10-26-2024 Unclassified (2 sources) Sprain of right ankle 02-04-2025 Results Test Name Value Interpretation Reference Range Facility CT lung screeningon 04-13-20 CT lung screening [facility] [place] [address] [place] [address] CT Scan Report Signed Patient: Rock Herrera MR#: [id number] : 1970 Acct:[id number] Age/Sex: 54 / F ADM Date: 04/13/25 Loc: CT Room: Type: [facility] Attending Dr: CARRILLO Boyd APRN Copies to: Valarie Conley APRN, ACNP-BC Ordering Provider: Valarie Conley APRN, ACNP-BC Date of Service: 04/13/25 CT/CT lung screening: F17.210 - Nicotine dependence, cigarettes, uncomplicated CT CHEST WITHOUT CONTRAST, LOW DOSE SCREENING: CLINICAL DATA: A 54-year old former smoker, smoking for 39 pack-years. COMPARISON: Lung screening CT 03/31/2024 TECHNIQUE: Noncontrast axial CT scan images of the chest were obtained under the low dose screening CT protocol. Coronal and sagittal reconstructed images were also submitted. FINDINGS: Mediastinum : Suboptimal evaluation due to low-dose technique. Thoracic aorta appears normal in caliber. Pulmonary trunk appears nondilated. No pericardial effusion. No lymphadenopathy. The esophagus is grossly unremarkable. Lungs: No focal consolidation, pneumothorax or pleural effusion. Trachea and distal airways appear patent. Mild bronchial wall thickening. Emphysema. No suspicious noncalcified pulmonary nodule or mass. Upper abdomen: No acute findings. Bony thorax and chest wall: Soft tissues surrounding the chest wall demonstrate no acute findings. Osseous structures demonstrate degenerative change. CT/CT lung screening IMPRESSION: NO SUSPICIOUS PULMONARY NODULE. LUNG - RADS Version 1.0 Assessment: Category 1, Negative (No nodules and definitely benign nodules). Management: Continue annual lung screening with LDCT in 12 months. Impression dictated by: Champ Hobson Jr., D.O. 04/13/2025 2:14 PM Dictation Location: [place] [address] Transcribed By: NICK 04/13/25 1414 Dictated By: Champ Hobson Jr, DO 04/13/25 1413 Signed By: 04/13/25 1414 Normal [facility] Heart and Vascular Office/Cl inic Noteon 03-19-2025 Heart and Vascular Office/Clinic Note Heart and Vascular Office/Clinic Note Chief Complaint Surgical Clearance History of Present Illness Patient is a 54-year-old female with past medical history of hypertension, hyper lipidemia, and SVT. Patient comes in for 6-month follow-up today. Reviewed prior event monitor, echo, heart cath. At last visit, patient saw Dr. Davalos at which time she was continued on current medications. EKG in the office today shows sinus bradycardia with a heart rate of 45 bpm. Patient reports she has been doing pretty well since last visit. She did have 1 episode of pinching pain in her anterior chest that she went to the ED for and cardiac pain was ruled out and patient was diagnosed with a strained muscle. That is the only time she has had this pain anytime recently. Normal coronary arteries in 2019 seen on heart cath. Patient has chronic shortness of breath. But she does have COPD. She reports shortness of breath has not changed or worsened anytime recently. She also stopped smoking roughly 1 month ago. Patient has history of SVT and heart racing. She reports that she has not had any issues with palpitations or heart racing since last visit. Compliant with carvedilol 25 mg twice daily and Cardizem ER 120mg daily. Patient denies dizziness/lightheadednes s, and swelling in lower legs. REVIEWED PRIOR NOTE FROM 01/30/2024: At last visit, patient saw Dr. Solis [...] and Cardizem ER 120mg daily. Patient denies dizziness/lightheadednes s, and swelling in lower legs. Review of Systems ROS - Provider Constitutional: no fever, no chills, no sweats, no weakness Respiratory: no shortness of breath, no cough Cardiovascular: no chest pain Neuro: no dizziness. no loss of consciousness Physical Exam Vitals & Measurements HR: 50(Peripheral) RR: 18 BP: 110/60 SpO2: 96% HT: 64 in HT: 163 cm WT: 157.63 lb WT: 71.5 kg BMI: 26.91 General: alert, no acute distress Cardiovascular: regular [...] 4. Normal estimated pulmonary artery pressure. [1] [facility] with Dr. Beltran on 03/03/2020: CONCLUSIONS: 1. Essentially normal coronary arteriograms. 2. Noncardiac chest pain. Assessment/Plan 1. SVT (supraventricular tachycardia) (I47.10: Supraventricular tachycardia, unspecified) Patient has history of SVT. Patient has not had any palpitations or symptoms anytime recently. She is currently taking carvedilol 25 mg twice daily and diltiazem 120 mg ER daily. Has not had any episodes in quite some time and last event monitor did not show any concerning rhythms. However, patient has pretty low heart rate in the office today and based on other vitals at [facility], suggest that she decrease carvedilol from 25 mg twice daily down to 12.5 mg twice daily. Continue with current dose of diltiazem at 180. Ordered: carvedilol, 12.5 mg = 1 tab(s), Oral, BID, # 180 tab(s), Refills(s) 3, Pharmacy: [id number], 163, cm, 03/19/25 13:49:00 EDT, Height/Length Dosing, 71.5, kg, 03/19/25 14:01:00 EDT, [place] (more content not included)... Normal [facility] Comment on above: Result Comment: Elec tronically Signed By: Nella NORRIS, En [place]\.br\Date and Time Signed: 03/19/25 14:48 EDT Ambulatory Visit Summaryon 0 03-17-2025 Ambulatory Visit Summary Ambulatory Visi t Summary ROCK HERRERA :1970 Visit Date:03/17/2025 Ambulatory Visit Instructions Your Diagnosis History of UTI Your Care Team Attending Physician - Sofiya Villa PA-C Primary Care Physician - ROBERT GIRON DO This Is Your Medications List acetaminophen-oxycodone (acetaminophen-oxycodone 325 mg-5 mg Tab) albuterol (Ventolin HFA 90 mcg/inh Aerosol) alendronate alprazolam (alprazolam 1 mg Tab) aripiprazole (Abilify) atorvastatin (Lipitor 40 mg Tab) calcium-vitamin D (Calcium 600+D) carvedilol (carvedilol 25 mg Tab) diltiazem (diltiazem CD 120 mg/24 hours Cap-ER) ergocalciferol (Vitamin D 50,000 intl units (1.25 mg) oral capsule) fremanezumab (Ajovy Autoinjector 225 mg/1.5 mL subcutaneous solution) furosemide (Lasix) loperamide (Imodium A-D 2 mg oral tablet) meclizine mirabegron (Myrbetriq 50 mg oral tablet, extended release) montelukast (montelukast 10 mg Tab) naltrexone (naltrexone 1.5 mg oral capsule) omeprazole ondansetron rimegepant (Nurtec ODT) solifenacin (solifenacin 10 mg Tab) thiamine (Vitamin B1 100 mg Tab) tramadol (traMADOL 50 mg Tab) Procedures Performed Carpal tunnel release (08/03/2024), Ulnar carpal complex ligament (08/03/2024), Epidural injection of lumbar spine using fluoroscopic [...] nerve decompression. Discharge Vitals Heart Rate (Peripheral) 68 Blood Pressure 141/80 Height 163 cm Height 64 in Weight 71.5 kg Weight 157.63 lb BMI 26.91 What to do next Scheduled Follow-Up Appointments Saturday 2:00 PM EDT With: Nella NORRIS, nE [place] Where: [facility] Medications What How Much When Instructions Unchanged acetaminophen-oxycodone (acetaminophen-oxycodone 325 mg-5 mg Tab) 1 Tablets By Mouth Every 4 hours as needed for for pain Unchanged albuterol (Ventolin HFA 90 mcg/ inh Aerosol) 2 Puffs Inhalation 4 times a day as needed for Shortness of breath or wheezing Unchanged alendronate 70 Milligram By Mouth Every week Unchanged alprazolam (alprazolam 1 mg Tab) TAKE ONE TABLET BY MOUTH THREE TIMES A DAY NEEDED FOR ANXIETY Unchanged aripiprazole (Abilify) 15 Milligram By Mouth Every day Unchanged atorvastatin (Lipitor 40 mg Tab) 2 Tablets By Mouth At bedtime Unchanged calcium-vitamin D (Calcium 600+D) 600 / 400 mg By Mouth Every day Unchanged carvedilol (carvedilol 25 mg Tab) 1 Tablets By Mouth 2 times a day Unchanged diltiazem (diltiazem CD 120 mg/ 24 hours Cap-ER) 1 Capsules By Mouth Every day Unchanged ergocalciferol (Vitamin D 50,000 intl units (1.25 mg) oral capsule) 1 Capsules By Mouth Saturday Unchanged fremanezumab (Ajovy Autoinjector 225 mg/ 1.5 mL subcutaneous solution) 225 Milligram Subcutaneous Once a month Unchanged furosemide (Lasix) 20 Milligram By Mouth Every day Unchanged loperamide (Imodium A-D 2 mg oral tablet) See instructions 2 mg Oral BID and 2mg after each loose stool Unchanged meclizine 25 Milligram By Mouth 4 times a day as needed for Dizziness Unchanged mirabegron (Myrbetriq 50 mg oral tablet, extended release) 1 Tablets By Mouth Every day Duration: 30 Days Unchanged montelukast (montelukast 10 mg Tab) 1 Tablets By Mouth Every day Unchanged naltrexone (naltrexone 1.5 mg oral capsule) See instructions take one tablet daily Unchanged omeprazole 40 Milligram By Mouth Every day Unchanged ondansetron 4 Milligram Sublingual As needed for as needed for nausea/vomiting Unchanged rimegepant (Nurtec ODT) 75 Milligram By Mouth Every 24 hours as needed for as needed for migraine headache Unchanged solifenacin (solifenacin 10 mg Tab) 1 Tablets By Mouth Every day Unchanged thiamine (Vitamin B1 100 mg Tab) 1 Tablets By Mouth Every day Unchanged tramadol (traMADOL 50 mg Tab) Allergies Neurontin (Unknown) Advair HFA (Rash) Augmentin (Vomiting) Avelox (Rash) Bactrim DS (Vomiting) Calan (Palpitations, Vo (more content not included)... Normal [facility] Reminderson 03-17-2025 Reminders Reminders From: Iqra Butcher To: EU - Administrative; Sent: 03/17/2025 16:00:31 EDT Show up: 04/07/2025 16:00:00 EDT Subject: 3 month F/U Due Date/Time: 06/15/2025 15:59:00 EDT Reminder/Recall Schedule patient for a 3 mo f/u with a PVR, with LT Normal [facility] Urology Office/Clinic Noteon 03-17-2025 Urology Office/Clinic Note Urology Office/Clinic Note Chief Complaint fu HPI Staff 54 year old female follow up Patient denies any dysuria or gross hematuria. Denies any flank or abdomen pain. urgency frequency and leakage She just found out yesterday she has stage 2 kidney disease History of Present Illness I have reviewed and verified the staff HPI to be accurate for this encounter. Review of Systems PHQ Score Initial Depression Screen Score: 0 SCORE no fever, chills, malaise, myalgia. no abdominal pain, nausea, vomiting. Physical Exam Vitals & Measurements HR: 68(Peripheral) BP: 141/80 HT: 64 in HT: 163 cm WT: 157.63 lb WT: 71.5 kg BMI: 26.91 General: Well developed, well nourished, in no acute distress. Assessment/Plan PRW pt 1. Urge incontinence (N39.41: Urge incontinence) BBSQ 17 (18-19) PVR 0 ml today UA today negative for blood or infection UUI at least daily. +SOPHIA. +FI. Currently taking Vesicare 10 mg. She was started on Myrbetriq 50 mg qd at last OV due to UUI multiple time per day. Wears pads, changing 3x/day. Pt shares she is not taking Myrbetriq. Shares she forgets to take it. Recommend trialing Myrbetriq given bothersome sxs today. She verbalizes understanding. All questions answered. -Start Myrbetriq 50mg daily. Pt has script at home. No refills needed. -Continue Vesicare 10 mg daily -Timed voids, emptying maneuvers -F/U in 3 months or sooner if needed 2. Gross hematuria (R31.0: Gross hematuria) Intermittent for weeks to months. Typically asymptomatic. Neg eval in 2020. Shares she stopped smoking. Smoker x 30 years. Cytol 01/21/25 - negative She was scheduled for cystoscopy on 02/23/25 for gross hematuria, but patient no showed. She was also scheduled for SILVANA & KUB, but did not schedule imaging. Today, she shares she was dealing with severe diarrhea at this time and could not leave house to complete cysto & imaging. No longer seeing hematuria. Still interested in hematuria work-up. Again, discussed etiologies of hematuria and implications of work-up. Advised patient if at any point she does not want to have cysto complete, then will need to sign refusal form. She verbalizes understanding. All questions answered. -Reschedule cystoscopy. The risks and benefits for cystoscopy have been discussed. The risks include bleeding, infection, and irritation of the bladder and urinary channel, among others. The patient, after being informed of procedural details and after questions have been answered, wishes to proceed. Full informed consent has been obtained. Will order Local anesthesia. Pt has multiple abx allergies so will discuss w PRW, may opt against pre-op abx. -Patient to call [facility] to complete SILVANA & KUB -F/U pending cysto 3. History of kidney stones (Z87.442: Personal history of urinary calculi) Last visit, KUB/SILVANA ordered for hematuria and hx of stones. Pt has had a lot of CTs so trying to limit radiation. -See #2 4. Former smoker (Z87.891: Personal history of nicotine dependence) Shares she quit. Smoker x 30 years. Increased risk of urothelial CA. Orders: Urnls Dip Stick Auto w/o Microscopy POC 58452 Follow-up With When Contact Information Sofiya Villa PA-C, FELISHA Additional Instructions: Schedule cysto F/U in 3 months w/ PVR Patient Education Hematuria, Adult Problem List/Past Medical History Ongoing Anxiety BMI 30.0-30.9,adult Change in bowel habits Colon polyp Depression Dysuria Esophageal spasm Family history of colorectal cancer Fecal incontinence Feeling of incomplete bladder emptying Flank pain Foreign body in stomach, sequela Former smoker Gastric bezoar Gastric erosions GERD (gastroesophageal reflux [...] Post traumatic stress disorder (PTSD) Procedure/Surgical History Carpal tunnel release (08/03/2024), Ulnar carpal complex ligament (08/03/2024), Epidural injection of lumbar spine using fluoroscopic guidance (12/11/2023), Colonoscopy (01/17/2023), Hammer toe (11/21/2022), Metatarsal (11/21/2022), Esophagogastroduodenosco py (03/29/2022), Peroneal tendon (11/08/2021), Esophagogastroduodenosco py (06/26/2021), U (more content not included)... Normal [facility] Comment on above: Result Comment: Elec tronically Signed By: Sofiya Villa PA-C\.br\Date and Time Signed: 03/17/25 16:36 EDT DRUG SCREEN, URINEon 025 AMPHETAMINE/METHAMP Negative Normal Negative [facility] Comment on above: Result Comment: AMPH /METH screening cut off = 1000 ng/mL Performed By: #### D HENDRICKSON #### [facility]) [address] [place] [address] VIR BARBITURATES Negative Normal Negative [facility] Comment on above: Result Comment: Veronika iturates screening cut off value = 200 ng/mL Performed By: #### D HENDRICKSON #### [facility] ([facility]) [address] [place] [address] VIR BENZODIAZEPINES Positive Abnormal Negative [facility] Comment on above: Result Comment: Alfredo odiazepines screening cut off value = 200 ng/mL Performed By: #### D HENDRICKSON #### [facility] ([facility]) [address] [place] [address] VIR CANNABINOIDS Negative Normal Negative [facility] Comment on above: Result Comment: Malathi abinoids/THC screening cut off value = 50 ng/mL Performed By: #### D HENDRICKSON #### [facility] ([facility]) [address] [place] [address] VIR COCAINE METABOLITE Negative Normal Negative [facility] Comment on above: Result Comment: Coca ine screening cut off value = 300 ng/mL Performed By: #### D HENDRICKSON #### [facility] ([facility]) [address] [place] [address] VIR ECSTASY Negative Normal Negative [facility] Comment on above: Result Comment: Ecst asy screening cut off value = 500 ng/mL Performed By: #### D HENDRICKSON #### [facility] ([facility]) [address] [place] [address] VIR METHADONE Negative Normal Negative [facility] Comment on above: Result Comment: Meth adone screening cut off value = 300 ng/mL. Performed By: #### D HENDRICKSON #### [facility] ([facility]) [address] [place] [address] VIR OPIATES Negative Normal Negative [facility] Comment on above: Result Comment: Opia ellen screening cut off value = 300 ng/mL This test is used for the detection of codeine, hydrocodone (>1000 ng/mL), morphine and hydromorphone (>900 ng/mL) in urine. Performed By: #### D HENDRICKSON #### [facility] ([facility]) [address] [place] [address] VIR OXYCODONE Negative Normal Negative [facility] Comment on above: Result Comment: Oxyc odone screening cut off value = 300 ng/mL This test is used for the detection of oxycodone and oxymorphone in urine. Performed By: #### D HENDRICKSON #### [facility]) [address] [place] [address] VIR PHENCYCLIDINE Negative Normal Negative [facility] Comment on above: Result Comment: Phen cyclidine screening cut off value = 25 ng/mL Performed By: #### D HENDRICKSON #### [facility]) [address] [place] [address] VIR Drug Screen, Urineon 025 Amphetamines Screen method >1000 ng/mL Ql (U) Negative Negative [facility] Comment on above: AMPH/METH screening cut off = 1000 ng/mL Barbiturates Screen Ql (U) Negative Negative [facility] Comment on above: Barbiturates screeni ng cut off value = 200 ng/mL Benzodiazepines Ql (U) Positive Abnormal Negative [facility] Comment on above: Benzodiazepines scre ening cut off value = 200 ng/mL Cocaine Ql (U) Negative Negative [facility] Comment on above: Cocaine screening cu t off value = 300 ng/mL Interpretation and review of laboratory results Abnormal [facility] Methadone (Mec) [Mass/Mass] Negative Negative [facility] Comment on above: Methadone screening cut off value = 300 ng/mL. Methylenedioxymethamphet amine Screen Ql (U) Negative Negative [facility] Comment on above: Ecstasy screening cu t off value = 500 ng/mL Opiates Ql (U) Negative Negative [facility] Comment on above: Opiates screening cu t off value = 300 ng/mL This test is used for the detection of codeine, hydrocodone (>1000 ng/mL), morphine and hydromorphone (>900 ng/mL) in urine. oxyCODONE [Mass/Vol] Negative Negative [facility] Comment on above: Oxycodone screening cut off value = 300 ng/mL This test is used for the detection of oxycodone and oxymorphone in urine. Phencyclidine Screen method >25 ng/mL Ql (U) Negative Negative [facility] Comment on above: Phencyclidine screen ing cut off value = 25 ng/mL Tetrahydrocannabinol Screen method >50 ng/mL Ql (U) Negative Negative [facility] Comment on above: Cannabinoids/THC scr eening cut off value = 50 ng/mL [facility] POCT Hemoglobin P1yEasafae B y: Aamris Hilton on 03-16-2025 HbA1c (Bld) [Mass fraction] 5.3 % 4 - 7 % [facility] TRAMADOL AND METABOLITE, Uon 03-16-2025 O-DESMETHYLTRAMADOL 6503 ng/mL Normal Cutoff:25 [facility] Comment on above: Result Comment: ADDITIONAL INFORMATION Testing performed by Liquid Chromatography-Tandem Mass Spectrometry (LC-MS/MS). This test was developed and its performance characteristics determined by [facility] in a manner consistent with CLIA requirements. This test has not been cleared or approved by the U.S. Food and Drug Administration. Test Performed by: [place] [address] Electroneurodiagnostic Technician: Natasha Marshall Ph.D.; CLIA# [id number] Performed By: #### T REANNA #### [facility] ([facility]) [address] [place] [address] VIR TRAMADOL 4090 ng/mL Normal Cutoff:25 [facility] Comment on above: Performed By: #### T REANNA #### [facility] [address] [place] [address] VIR H&P Updateon 02-23-2025 H&P Update H&P Update Patient: ROCK HERRERA Age: 54 years Sex: Female : 1970 Associated Diagnoses: None Author: LILI WALSH, Donaldo Moreira Basic Information Pre-Op Diagnosis: Gross hematuria, Urge incontinence Proposed Surgery: Cystoscopy I have reviewed the History and Physical and examined the patient for changes. Based upon my assessment, the patient may proceed with the planned procedure. Health Status Procedure history: Carpal tunnel release (721006749) on 08/03/2024 at 54 Years. Ulnar carpal complex ligament (176575661) on 08/03/2024 at 54 Years. Epidural injection of lumbar spine using fluoroscopic guidance (4932315115) on 12/11/2023 at 53 Years. Comments: 01/01/2024 11:15 SRIKANTH Griffin RN, Victoria Coto L4-L5 no relief, made worse Colonoscopy ([id number]) on 01/17/2023 at 52 Years. right 3rd metatarsal deformity repair w/screw ([id number]) on 11/21/2022 at 52 Years. Right 2nd, 3rd, 4th hammer toe repair w/k-wire (874103318) on 11/21/2022 at 52 Years. Esophagogastroduodenosco py (877072492) on 03/29/2022 at 51 Years. Comments: 03/29/2022 12:42 Justina Garcia RN esophageal dilation, small gastric bezoar Peroneal tendon ([id number]) on 11/08/2021 at 51 Years. Comments: 11/08/2021 14:20 EDT Padmini Andersen LPN right peroneal tendon repair with synovectomy Esophagogastroduodenosco py (720647320) on 06/26/2021 at 50 Years. Comments: 06/26/2021 11:15 LIZZETTE THRASHER RN dilation Urodynamics ([id number]) on 05/16/2021 at 50 Years. Colonoscopy ([id number]) on 03/14/2020 at 49 Years. Catheterization of left heart ([id number]) on 03/03/2020 at 49 Years. Comments: 03/03/2020 14:22 Galo Ruby RN diagnostic Removal of toenail (908372996) on 10/22/2018 at 48 Years. Comments: 10/22/2018 11:23 Corine Lee RN RIGHT GREAT AND FIFTH DIGIT PERMANENT NAIL AVULSION Excision of Downey's neuroma (3049656408) on 10/22/2018 at 48 Years. Comments: 10/22/2018 11:24 Corine Lee RN EXCISION OF NEUROMA LEFT FOOT Tarsal tunnel release (885566752) on 05/07/2018 at 47 Years. Comments: 05/07/2018 13:21 Joyce Rae RN left Right tarsal tunnel release on 02/15/2016 at 45 Years. Left instep plantar fasciotomy with division of soft tissue & fascia & muscle. on 08/17/2015 at 45 Years. right instep plantar fasciotomy with division of muscle and fascia on 06/22/2015 at 44 Years. Tubal ligation (401629086). Hysterectomy (030222202). Carpal tunnel release (761925943). Comments: 06/16/2015 15:17 SRIKANTH Hall RN, Brenda x 2 Ulnar nerve decompression (874934774). Comments: 06/16/2015 15:19 SRIKANTH Hall RN, Brenda x 2 Sinus (4335877714). Comments: 06/16/2015 15:26 SRIKANTH Hall RN, Brenda x 2 Mortons neuroma (8567799308). Comments: 06/16/2015 15:27 SRIKANTH Hall RN, Brenda x 6 Tarsal tunnel (17525318). Comments: 06/16/2015 15:27 SRIKANTH Hall RN, Brenda x 2 Lithotripsy (583804564). Appendectomy (773345975). Breast surgery (5889474393). Comments: 06/16/2015 15:29 SRIKANTH Hall RN, Brenda x 2 - removal of milk ducts Suspension of bladder (0639668). Colonoscopy (668897331). Esophagogastroduodenosco py (815572476). ingrown toenail removal. Comments: 08/09/2015 13:46 JUDIE Blake RN, Chelsea x3 Cholecystectomy (99870250). Arthroscopy of knee (808044561). salpingectomy with unilateral oophorectomy. ESWL of kidney (25576282). Excision of ganglion cyst (3084776723). Esophagogastroduodenosco py (772133010). Comments: 09/06/2022 13:43 EST - Mukul RN, Shahnaz Antral erosions Colonoscopy (898125880). Ulnar nerve at elbow (343066604). Social History Social & Psychosocial Habits Alcohol 08/13/2024 Risk Assessment: Low Risk 08/13/2024 Frequency: 1-2 times per year Comment: tamiko - 01/22/2020 16:25 - Al LUONGN,RN, Mora Coto 08/13/2024 Use: Never Comment: tamiko. - 10/12/2022 13:40 - Vanessa Dawn RN Substance Abuse 08/13/2024 Risk Assessment: Denkrish Substance Abuse 08/13/2024 Use: Current Comment: tamiko - 01/22/2020 11:11 - Kassie Easley 08/13/2024 Use: Never Comment: tamiko. - 10/12/2022 13:40 - Vanessa Dawn RN Tobacco 08/13/2024 Risk Assessment: High Risk 08/13/2024 Tobacco Use: 10 or more cigarettes (01/21/2025 Tobacco Use: 10 or more cigarettes (/ Smokeless tobacco use: Never Type: Cigarettes Ready to change: No Concerns about tobacco use in household: No Smoking Cessation Yes . Allergies: Allergic Reactions (Selected) Moderate Neurontin- Unknown. Severity Not Documented Advair HFA- Rash. Amitriptyline- Vomiting. Amoxicillin- Hives. Augmentin- Vomiting. Avelox- Rash. Bactrim DS- Vomiting. Calan- Vomiting and palpitations. Codeine- Rash. Cymbalta- Unknown. Decadron- Hot flashes. Depakote- Alopecia. Dexamethasone- Hot flashes. Doxycycline- Palpitations. Fluticasone- Unknown. Geodon- Palpitations. Ibuprofen- Rash. L (more content not included)... Normal [facility] Comment on above: Result Comment: Elec tronically Signed By: LILI WALSH, Donaldo Myers.rosi\Date and Time Signed: 02/23/25 07:59 EDT [facility] Letter [facility] Patient Letter [facility] February 23, 2025 ROCK HERRERA [address] [place] [address] : 1970 Dear Rock Herrera , You missed your scheduled appointment on: 02/23/25 for Bladder scope/cystoscopy . Please note our appointment slots fill quickly. When you fail to cancel or reschedule an appointment the office is unable to fill the appointment slot that was reserved for you. In the future, we ask that you call 24 hours in advance to cancel your appointment. Our current reminder system gives you the opportunity to cancel by responding to our reminder text, phone call or email. You can also call the office to reschedule during normal business hours or use our on-line scheduling portal at your convenience. Our goal is to provide convenient and quality care to all of our patients. We appreciate your consideration regarding any future cancellations. Sincerely, [facility] Dr. Donaldo Pearson [facility] H&P Updateon 02-18-2025 H&P Update H&P Update Patient: ROCK HERRERA Age: 54 years Sex: Female : 1970 Associated Diagnoses: None Author: Donaldo PEARSON MD Basic Information Pre-Op Diagnosis: Gross Hematuria, Urge Incontinence Proposed Surgery: Cystoscopy I have reviewed the History and Physical and examined the patient for changes. Based upon my assessment, the patient may proceed with the planned procedure. Health Status Procedure history: Carpal tunnel release (028807299) on 08/03/2024 at 54 Years. Ulnar carpal complex ligament (544621483) on 08/03/2024 at 54 Years. Epidural injection of lumbar spine using fluoroscopic guidance (5105475175) on 12/11/2023 at 53 Years. Comments: 01/01/2024 11:15 SRIKANTH Griffin RN, Victoria Coto L4-L5 no relief, made worse Colonoscopy (694107901) on 01/17/2023 at 52 Years. right 3rd metatarsal deformity repair w/screw (87739413) on 11/21/2022 at 52 Years. Right 2nd, 3rd, 4th hammer toe repair w/k-wire (038662453) on 11/21/2022 at 52 Years. Esophagogastroduodenosco py (850168856) on 03/29/2022 at 51 Years. Comments: 03/29/2022 12:42 Justina Garcia RN esophageal dilation, small gastric bezoar Peroneal tendon (577962138) on 11/08/2021 at 51 Years. Comments: 11/08/2021 14:20 Padmini Pimentel LPN right peroneal tendon repair with synovectomy Esophagogastroduodenosco py (667094464) on 06/26/2021 at 50 Years. Comments: 06/26/2021 11:15 LIZZETTE THRASHER RN dilation Urodynamics ([id number]) on 05/16/2021 at 50 Years. Colonoscopy ([id number]) on 03/14/2020 at 49 Years. Catheterization of left heart (315599058) on 03/03/2020 at 49 Years. Comments: 03/03/2020 14:22 Galo Ruby RN diagnostic Removal of toenail (934789747) on 10/22/2018 at 48 Years. Comments: 10/22/2018 11:23 Corine Lee RN RIGHT GREAT AND FIFTH DIGIT PERMANENT NAIL AVULSION Excision of Downey's neuroma (0370929020) on 10/22/2018 at 48 Years. Comments: 10/22/2018 11:24 Corine Lee RN EXCISION OF NEUROMA LEFT FOOT Tarsal tunnel release (961412460) on 05/07/2018 at 47 Years. Comments: 05/07/2018 13:21 Joyce Rae RN left Right tarsal tunnel release on 02/15/2016 at 45 Years. Left instep plantar fasciotomy with division of soft tissue & fascia & muscle. on 08/17/2015 at 45 Years. right instep plantar fasciotomy with division of muscle and fascia on 06/22/2015 at 44 Years. Tubal ligation (303374828). Hysterectomy (760401976). Carpal tunnel release (482704075). Comments: 06/16/2015 15:17 EDT - Isabel RN, Brenda x 2 Ulnar nerve decompression (736224523). Comments: 06/16/2015 15:19 SRIKANTH Hall RN, Brenda x 2 Sinus ([id number]). Comments: 06/16/2015 15:26 SRIKANTH Hall RN, Brenda x 2 Mortons neuroma (3156102072). Comments: 06/16/2015 15:27 SRIKANTH Hall RN, Brenda x 6 Tarsal tunnel (79596622). Comments: 06/16/2015 15:27 SRIKANTH Hall RN, Brenda x 2 Lithotripsy (020494005). Appendectomy (200279011). Breast surgery (8159241532). Comments: 06/16/2015 15:29 SRIKANTH Hall RN, Brenda x 2 - removal of milk ducts Suspension of bladder (2732734). Colonoscopy (635609499). Esophagogastroduodenosco py (924420567). ingrown toenail removal. Comments: 08/09/2015 13:46 JUDIE Blake RN, Chelsea x3 Cholecystectomy (51568706). Arthroscopy of knee (496663161). salpingectomy with unilateral oophorectomy. ESWL of kidney (19549373). Excision of ganglion cyst (3779543606). Esophagogastroduodenosco py (177721219). Comments: 09/06/2022 13:43 JUDIE Gilman RN, Shahnaz Antral erosions Colonoscopy (467957771). Ulnar nerve at elbow (837417401). Social History Social & Psychosocial Habits Alcohol 08/13/2024 Risk Assessment: Low Risk 08/13/2024 Frequency: 1-2 times per year Comment: denies - 01/22/2020 16:25 - Al CARTAGENA,RN, Mora Coto 08/13/2024 Use: Never Comment: denies. - 10/12/2022 13:40 - Vanessa Dawn RN Substance Abuse 08/13/2024 Risk Assessment: Denies Substance Abuse 08/13/2024 Use: Current Comment: denkrish - 01/22/2020 11:11 - Kassie Easley 08/13/2024 Use: Never Comment: denies. - 10/12/2022 13:40 - Nereyda LAZO, Vanessa Young Tobacco 08/13/2024 Risk Assessment: High Risk 08/13/2024 Tobacco Use: 10 or more cigarettes (01/21/2025 Tobacco Use: 10 or more cigarettes (1/ Smokeless tobacco use: Never Type: Cigarettes Ready to change: No Concerns about tobacco use in household: No Smoking Cessation Yes . Allergies: Allergic Reactions (Selected) Moderate Neurontin- Unknown. Severity Not Documented Advair HFA- Rash. Amitriptyline- Vomiting. Amoxicillin- Hives. Augmentin- Vomiting. Avelox- Rash. Bactrim DS- Vomiting. Calan- Vomiting and palpitations. Codeine- Rash. Cymbalta- Unknown. Decadron- Hot flashes. Depakote- Alopecia. Dexamethasone- Hot flashes. Doxycycline- Palpitations. Fluticasone- Unknown. Geodon- Palpitations. Ibuprofen- Ra (more content not included)... Normal [facility] Comment on above: Result Comment: juan bliss Electronically Signed By: Donaldo PEARSON MD XR Ankle - right 3 Viewson 0 02-04-2025 Imaging Result: Negative fractures visualized with notable large enthesophyte and notable hardware fixation to forefoot [facility] Radiology Study observation (narrative) [facility] Urine Cytology ([facility])on 01-26-2025 Urine Cytology Diagnosis Info Invalid Interpretation Code [facility] Comment on above: Result Comment: A:Ur ine,Clean Catch:Bladder Wash Interpretation - Adequate cellularity for evaluation. CPT 58452 MicroScopic Description - Adequacy - Gross Description Site ID:A color light Yellow fixative Alcohol Specimen designated Clean Catch received in alcohol preservative and labeled with the patient???s name, consists of 70ml clear light yellow fluid. Electronically signed by : on: 01/26/2025 12:55:27 Performed By: #### 1 [id number] #### [facility] [address] [place] [address] Ambulatory Visit Summaryon 0 01-21-2025 Ambulatory Visit Summary Ambulatory Visi t Summary ROCK HERRERA :1970 MRN:[id number] Visit Date:01/21/2025 Ambulatory Visit Instructions Your Diagnosis Urge incontinence History of kidney stones Gross hematuria Hematuria Kidney stone Tests Performed US Renal -- Results Pending -- XR Abdomen 1 View -- Results Pending -- Please visit your patient portal for your results or contact your primary care physician. Your Care Team Attending Physician - SHERI JIMENES PA-C Primary Care Physician - ROBERT GIRON DO This Is Your Medications List mirabegron (Myrbetriq 50 mg oral tablet, extended release) solifenacin (solifenacin 10 mg Tab) Contact prescribing physician if questions or concerns acetaminophen-oxycodone (acetaminophen-oxycodone 325 mg-5 mg Tab) albuterol (Ventolin HFA 90 mcg/inh Aerosol) alendronate alprazolam (alprazolam 1 mg Tab) aripiprazole (Abilify) atorvastatin (Lipitor 40 mg Tab) calcium-vitamin D (Calcium 600+D) carvedilol (carvedilol 25 mg Tab) diltiazem (diltiazem CD 120 mg/24 hours Cap-ER) ergocalciferol (Vitamin D 50,000 intl units (1.25 mg) oral capsule) fremanezumab (Ajovy Autoinjector 225 mg/1.5 mL subcutaneous solution) furosemide (Lasix) loperamide (Imodium A-D 2 mg oral tablet) meclizine montelukast (montelukast 10 mg Tab) naltrexone (naltrexone 1.5 mg oral capsule) omeprazole ondansetron rimegepant (Nurtec ODT) thiamine (Vitamin B1 100 mg Tab) Procedures Performed Carpal tunnel release (08/03/2024), Ulnar carpal complex ligament (08/03/2024), Epidural injection of lumbar spine using fluoroscopic [...] elbow, Ulnar nerve decompression. Discharge Vitals Temperature (Oral) 37 ???C Heart Rate (Peripheral) 50 Respiratory Rate 16 Blood Pressure 100/54 Height 163 cm Height 64 in Weight 70 kg Weight 154.323 lb BMI 26.35 What to do next You Need to Schedule the Following Appointments Follow Up with [facility] When: Comments: For procedure as scheduled. Where: Medications What How Much When Instructions New mirabegron (Myrbetriq 50 mg oral tablet, extended release) 1 Tablets By Mouth Every day Duration: 30 Days Refills: 11 Pickup at [facility] Unchanged solifenacin (solifenacin 10 mg Tab) 1 Tablets By Mouth Every day Unchanged acetaminophen-oxycodone (acetaminophen-oxycodone 325 mg-5 mg Tab) 1 Tablets By Mouth Every 4 hours as needed for for pain Contact prescribing physician if questions or concerns Unchanged albuterol (Ventolin HFA 90 mcg/ inh Aerosol) 2 Puffs Inhalation 4 times a day as needed for Shortness of breath or wheezing Contact prescribing physician if questions or concerns Unchanged alendronate 70 Milligram By Mouth Every week Contact prescribing physician if questions or concerns Unchanged alprazolam (alprazolam 1 mg Tab) TAKE ONE TABLET BY MOUTH THREE TIMES A DAY NEEDED FOR ANXIETY Contact prescribing physician if questions or concerns [...] Tablets By Mouth 2 times a day Contact prescribing physician if questions or concerns Unchanged diltiazem (diltiazem CD 120 mg/ 24 hours Cap-ER) 1 Capsules By Mouth Every day Contact prescribing physician if questions or concerns Unchanged ergocalciferol (Vitamin D 50,000 intl units (1.25 mg) oral capsule) 1 Capsules By Mouth Saturday Contact prescribing physician if questions or concerns Unchanged fremanezumab (Ajovy Autoinjector 225 mg/ 1.5 mL subcutaneous solution) 225 Milligram Subcuta (more content not included)... Normal [facility] Urine Cytology ([facility])on 0 01-21-2025 Method of Extraction Bladder Urine Normal [facility] Comment on above: Performed By: #### 1 [id number] #### [facility] [address] Number of Jars 1 Invalid Interpretation Code [facility] Comment on above: Performed By: #### 1 [id number] #### [facility] [address] Specimen Clean Catch Normal [facility] Comment on above: Performed By: #### 1 [id number] #### [facility] [address] [place] [address] Type of Service Technical Only Normal [facility] Comment on above: Performed By: #### 1 [id number] #### [facility] [address] [place] [id number] Urology Office/Clinic Noteon 01-21-2025 Urology Office/Clinic Note Urology Office/Clinic Note HPI Staff 54 yr old female here for 1 yr f/u DX: Mixed incontinence, Fecal incontinence, OAB, gross hematuria & Kidney Stone most recent A1c was done 09/15/24 results 6.0 pt denies any urinary issues or concerns. pt states she does leak if she waits too long to go, and when she sneezes or coughs at times. pt states she did have some pain and discomfort in lower back side on right about 2+ weeks ago but that has went away. pt also states once in a while she will see blood in urine, pinkish color, no pain with that Review of Systems PHQ Score Initial Depression Screen Score: 0 SCORE No fever, chills, malaise, myalgia. Physical Exam Vitals & Measurements T: 37 ???C(Oral) HR: 50(Peripheral) RR: 16 BP: 100/54 HT: 64 in HT: 163 cm WT: 70 kg WT: 154.323 lb BMI: 26.35 General: nontoxic, NAD Mouth: moist mucosa Lungs: normal respiratory effort Cardio: regular rate, good distal perfusion Abdomen: nondistended Neurologic: Grossly normal Skin: No rashes or suspicious lesions Assessment/Plan PRW pt. 1. Urge incontinence (N39.41: Urge incontinence) UA trace hgb only. BBSQ 18-19. Does not feel sx fully controlled on Vesicare 10mg. UUI at least daily. +SOPHIA. +FI. Discussed other options including adding Beta-3, Botox, SNM. Pt would like to try Beta-3. Risks/benefits/side effects discussed. Continue Vesicare 10 mg daily Add Myrbetriq 50mg daily. Risks/benefits/side effects discussed. Ordered: Body Mass Index (BMI) documented 3008F Current tobacco smoker 1034F Depression Screening Negative 3352F E&M of Est. Patient Moderate 30-39 Min 08473 Influenza immunization status assessed 1030F Medication list documented in medical record 1159F Most recent diastolic blood pressure <80 mm Hg 3078F Patient screen for fall risk: no falls in last year or 1 fall with no injury in last year 1101F Review of all meds by a prescribing practitioner or clinical pharmacist documented in EHR 1160F Screened for tobacco use AND received tobacco cessation intervention 4004F Systolic BP <130 mm Hg (Most Recent) 3074F Urine Cytology ([facility]) Urnls Dip Stick Auto w/o Microscopy POC 02433 2. History of kidney stones (Z87.442: Personal history of urinary calculi) Recent flank pain and gross hematuria. All sx have resolved. Pt has had a lot of CTs so we will try to limit radiation. KUB/SILVANA for stones. Ordered: Body Mass Index (BMI) documented 3008F Current tobacco smoker 1034F Depression Screening Negative 3352F E&M of Est. Patient Moderate 30-39 Min 51204 Influenza immunization status assessed 1030F Medication list documented in medical record 1159F Most recent diastolic blood pressure <80 mm Hg 3078F Patient screen for fall risk: no falls in last year or 1 fall with no injury in last year 1101F Review of all meds by a prescribing practitioner or clinical pharmacist documented in EHR 1160F Screened for tobacco use AND received tobacco cessation intervention 4004F Systolic BP <130 mm Hg (Most Recent) 3074F Urine Cytology ([facility]) Urnls Dip Stick Auto w/o Microscopy POC 19750 3. Gross hematuria (R31.0: Gross hematuria) Intermittent for weeks to months. Typically asymptomatic. Neg eval in 2020. Still smoking. Discussed options. The patient is aware that a distinct etiology of the hematuria may not be clear upon conclusion of the workup. Will initiate hematuria workup to include upper urinary tract imaging, as well as evaluation of the urinary cells with urine cytology and possible a FISH test. A cystoscopy will be scheduled to rule out lower urinary tract pathology. The rationale for this workup has been discussed, and all questions have been answered. The risks and benefits for cystoscopy have been discussed. The risks include bleeding, infection, and irritation of the bladder and urinary channel, among others. The patient, after being informed of procedural details and after questions have been answered, wishes to proceed. Full informed consent has been obtained. Will order Local anesthesia. Pt has multiple abx allergies so will discuss w PRW, may opt against pre-op abx. Ordered: E&M of Est. Patient Moderate 30-39 Min 75060 Urine Cytology ([facility]) Orders: mirabegron, 50 mg = 1 tab(s), Oral, Daily, X 30 day(s), # 30 tab(s), Refills(s) 11, Pharmacy: [facility], 163, cm, 01/21/25 11:57:00 EDT, Height/Length Dosing, 70, kg, 01/21/25 11:57:00 EDT, Weight Dosing Follow-up With When Contact Information [facility] Additional Instructions: For procedure as scheduled. Patient Education Kidney Stones, [id number] Problem List/Past Medical History Ongoing Anxiety BMI 30.0-30.9,adult Change in bowel habits Colon polyp Depression Dysuria Esophageal spasm Family history of colorectal cancer Fecal incontinence Feeling of incomplete bladder emptying Flank pain Foreign body in stomach, sequela Gastric (more content not included)... Normal [facility] Comment on above: Result Comment: Elec tronically Signed By: SHERI JIMENES PA-C.rosi\Date and Time Signed: 01/21/25 18:50 EDT XR ankle RT min 3V*on 2024 XR ankle RT min 3V* [facility] [place] [address] [place] [address] XRay Report Signed Patient: Rock Herrera MR#: [id number] 738 : 1970 Acct:[id number] Age/Sex: 54 / F ADM Date: 01/02/25 Loc: XDUC Room: Type: [facility] Attending Dr: Sofiya Brown WAREHOUSER Copies to: Sofiya Brown APRN Ordering Provider: Sofiya Brown APRN Date of Service: 01/02/25 XR/XR ankle RT min 3V*: RIGHT ANKLE PAIN 3 views right ankle plain film COMPARISON: None HISTORY: Right lateral ankle pain and swelling. Recent surgery. Recent injury. ACUTE FINDINGS: None DEGENERATIVE CHANGE: Unremarkable SOFT TISSUE FINDINGS: Lateral soft tissue swelling JOINT EFFUSION: None POSTOP CHANGES: Postsurgical changes of the foot BONE MINERALIZATION: Adequate XR/XR ankle RT min 3V* IMPRESSION: No acute findings. Impression dictated by: Solo Alvarez M.D. 01/02/2025 1:17 PM Dictation Location: [place] [address] Transcribed By: [facility] 01/02/251316 Dictated By: Solo Alvarez DO 01/02/251312 Signed By: 01/02/25 131 Normal [facility] MICROALBUMIN / CREATININE UR INE RATIOon 12-15-2024 Albumin DL <= 20 mg/L (U) [Mass/Vol] mg/dL Normal 0.0-1.9 [facility] Comment on above: Performed By: #### M ALBU #### [facility] [address] [place] [address] VIR MALB/CREAT RATIO Normal [facility] Comment on above: Result Comment: Urin e Microalbumin / Creatinine ratio not calculated due to non-numeric component. Performed By: #### M ALBU #### [facility] ([facility]) [address] [place] [address] VIR URINE CREATININE,RDM 56.03 mg/dL Normal [facility] Comment on above: Performed By: #### M ALBU #### [facility]) [address] [place] [address] VIR 36on 12-09-2024 36 Patient called and states she can not move appt due to being on fixed income and does not have the gas money. Patient is going to call PCP to see if they will fill the medication. Patent is keeping upcoming appt the same. No further action needed. [facility] 36on 12-07-2024 36 Lvm to call office b ack to reschedule appointment to sooner appointment [facility] 36 Lvm to have patient come into office before we can refill RX, please move appointment up when patietn comes back [facility] 36 Patient is calling asking for refill of Tramadol. [phone] [facility] Orders Onlyon 12-07-2024 Orders Only [id number] Violet Herrera J 1970 F Date Provider Department Center 12/07/2024 42906-EQLITJETHRO GAXIOLA ORTHO MPORTHO No family history on file [facility] Telephoneon 12-07-2024 Telephone [id number] Violet Herrera J 1970 F Date Provider Department Center 12/07/2024 803-YAMILETH SAEED MP ORTHO MPORTHO No family history on file [facility] Telephone [id number] Violet Herrera ie J 1970 F Date Provider Department Center 12/07/2024 Raman-NATHAN DIANE MP ORTHO MPORTHO No family history on file Reason for Visit and Comments: Medication [Other] [facility] 36on 11-30-2024 36 Patient called amparo kimball for Tramadol to be refilled and to let you know her Pharmacy closes at 1730 [facility] 36 Patient called to request refill on Please see pended medication. Pharmacy Varied- [facility] - [place], [place] - [address] [facility] [address] [facility] [address] [facility] [address] Patient Good # [phone] [facility] Orders Onlyon 11-30-2024 Orders Only [id number] Violet Herrera ie J 1970 F Date Provider Department [place] 11/30/2024 06683-HCBFGJETHRO VILLA MP ORTHO MPORTHO No family history on file [facility] Telephoneon 11-30-2024 Telephone [id number] Violet Herrera ie J 1970 F Date Provider Department [place] 11/30/2024 3625-YURI MILLER MP ORTHO MPORTHO No family history on file [facility] 36on 11-25-2024 36 Pt informed. [facility] Orders Onlyon 11-25-2024 Orders Only [id number] Violet Herrera ie J 1970 F Date Provider Department Center 11/25/2024 75499-JXNSEJETHRO VILLA MP ORTHO MPORTHO No family history on file [facility] 36on 11-24-2024 36 Kaylynn [facility] and states they did not receive tramadol script can you please resend? Thank you!! [facility] 36 Patient called to request refill on Tramadol Please see pended medication. Pharmacy Varied- [facility] - [place], [place] - [address] [facility] [address] [facility] [address] [facility] [address] Patient Good # [phone] Normal [facility] 11-24-2024 Refill [id number] Violet Herrera ie J 1970 F Date Provider Department Center 11/24/2024 PHIL LIANG MP ORTHO MPORTHO No family history on file Reason for Visit and Comments: Med Refill [[id number]] [facility] 36on 11-16-2024 36 Patient called to request refill on Tramadol Please see pended medication. Pharmacy Varied- [facility] - [place], [place] - [address] [facility] [address] [facility] [address] [facility] [address] Patient Good # [phone] [facility] 11-16-2024 Refill [id number] Violet Herrera ie J 1970 F Date Provider Department Center 11/16/2024 PHIL LIANG MP ORTHO MPORTHO No family history on file Reason for Visit and Comments: Med Refill [[id number]] [facility] echo transthoracicon [facility] echo transthoracic [facility] [place] [address] Echocardiogram Signed Patient: Rock Herrera MR#: [id number] 738 : 1970 Acct:[id number] Age/Sex: 54 / F ADM Date: 11/13/24 Loc: Room: Type: [facility] Attending Dr: CARRILLO Boyd APRN Ordering Provider: Valarie Conley APRN, ACNP-BC Date of Service: 11/13/24 [facility] echo transthoracic: R06.02 - Shortness of breath Copies to: Molina Leon MD, [facility] Valarie Conley APRN, ACNP-BC RDCS, RVT BSA: 1.8 m2 BP: 95/46 mmHg HR: 46 Reason For Study: R06.02 - Shortness of breath History: MVP, Smoker Interpretation Summary Mild concentric left ventricular hypertrophy. Ejection Fraction = 60-65%. A variety of Doppler measurements indicate normal left ventricular diastolic function. Mild aortic regurgitation. There is mild tricuspid regurgitation. The right ventricular systolic pressure is 37 mmHg. Right ventricular systolic pressure is consistent with mild pulmonary hypertension. There is no prior echocardiogram noted for this patient. Procedure/Quality: A two-dimensional transthoracic echocardiogram with color flow and Doppler was performed. The study was technically good in quality. There is no prior echocardiogram noted for this patient. Left Ventricle: Mild concentric left ventricular hypertrophy. Left ventricular systolic function is normal. Ejection Fraction = 60-65%. A variety of Doppler measurements indicate normal left ventricular diastolic function. Left Atrium: The left atrium appears normal in size. The atrial septum appears normal. Right Atrium: The right atrium appears normal in size. Right Ventricle: The right ventricular size, thickness and function are normal. Aortic Valve: The aortic valve is trileaflet. Mild aortic regurgitation. Mitral Valve: The mitral valve is mildly sclerotic. There is trace mitral regurgitation. Tricuspid Valve: The tricuspid valve is normal in structure. There is mild tricuspid regurgitation. The right ventricular systolic pressure is 37 mmHg. Right ventricular systolic pressure is consistent with mild pulmonary hypertension. Pulmonic Valve: The pulmonic valve is not well seen, but is grossly normal. Trace pulmonic valvular regurgitation. Arteries: The aortic root is normal size. Pericardium/Pleura: No pericardial effusion seen. There is no pleural effusion. IVC/Hepatic Veins: The IVC is normal in size with an inspiratory collapse of greater then 50%, suggesting normal right atrial pressure. Miscellaneous: No thrombus, vegetation or mass is seen. Measurements with Normals IVSd: 1.2 cm (0.7-1.1 cm)LVIDd: 4.5 cm (3.7-5.4 cm) LVPWd: 1.2 cm (0.7-1.1 cm)LVIDs: 3.1 cm (2.3-3.6 cm) LA dimension: 3.2 cm (2.3-4.0 cm)Ao root diam: 3.0 cm(2.0-3.6 cm) asc Aorta Diam: 3.0 cm(2.1-3.4cm) Doppler with Normals RVSP(TR): 34.3 mmHg (18-35mmHg) LV V1 max: 95.1 cm/sec (0.7-1.7m/s)MV E max christiano: 67.7 cm/sec(0.8-1.3m/s) MV A max christiano: 63.4 cm/sec(0.0-0.0m/s) MV E/A: 1.1 (<1.5) MMode/2D Measurements Calculations TAPSE: 2.0 cm FS: 31.0 % Ao root area: LVOT diam: 2.0 cm RV S Christiano: EDV(Teich): 92.4 ml 7.2 cm2 LVOT area: 3.0 cm2 13.2 cm/sec ESV(Teich): 38.0 ml EF(Teich): 58.9 % __ LVLd ap4: 6.4 cm SV(MOD-sp4): 39.8 ml LAV(MOD-sp4): LA A2 area: 13.3 cm2 EDV(MOD-sp4): 50.2 ml 63.7 ml LAV(MOD-sp2): LA A4 area: 18.0 cm2 LVLs ap4: 5.5 cm 28.6 ml LA length (vol): ESV(MOD-sp4): 5.2 cm 23.9 ml LA vol: 38.9 ml EF(MOD-sp4): LA vol index: 62.5 % 22.0 ml/m2 __ RA Volume: 46.5 mlRA Volume Index: 26.4 ml/m2 Doppler Measurements Calculations MV dec time: MV max P.0 mmHg E/E' lat: 7.2 MV dec slope: 0.25 sec E/E' med: 9.2 270.8 cm/sec2 __ Ao V2 max: AI max christiano: LV V1 max PG: MR max christiano: 136.0 cm/sec 411.0 cm/sec 3.6 mmHg 400.7 cm/sec Ao max PG: AI max P.7 mmHg LV V1 mean PG: MR max P.2 mmHg 7.4 mmHg AI dec slope: 2.0 mmHg Ao mean P.5 cm/sec2 LV V1 mean: 4.0 mmHg AI P1/2t: 638.5 msec 58.3 cm/sec Ao V2 mean: LV V1 VTI: 88.9 cm/sec 20.0 cm Ao V2 VTI: 32.7 cm HILDA(I,D): 1.8 cm2 HILDA(V,D): 2.1 cm2 __ TV max PG: TR max christiano: 31.0 mmHg 279.9 cm/sec TR max P.3 mmHg RAP systole: 3.0 mmHg Measurements from QLAB BSA (HM): 1.8 m2 CI (HM): ED Mass (HM): LAEF (HM): 46.0 % 1.9 l/min/m2 123.0 grams __ GERSON (HM): LAVmax (HM): LAVmin (HM): 21.0 mlPat Height (HM): 22.0 ml/m2 38.0 ml 163.0 cm __ Pat Weight (): 71.2 kg QLAB Heart Model EDV ()_phl: 120.0 ml EF ()_phl: 65.0 % ED Current ()_phl: 60.0 % ESV ()_phl: 42.0 ml HR (HM)_phl: 44.0 BPMES Current ()_phl: 30.0 % LV Length ED (HM)_phl: 79.0 mmSV (HM)_phl: 79.0 ml ED Default ()_phl: 60.0 % LV Length ES (HM)_phl: 63.0 mm ES Default ()_phl: 30.0 % Electronically si (more content not included)... Normal [facility] 36on 11-09-2024 36 Patient is graciain jigar a refill of Tramadol. [facility] 11-06-2024 36 Patient called to request refill on 11-06-24 Please see pended medication. Pharmacy [facility] [address] [place] [address], [place] - [address] [facility] [address] Patient Good # [phone] [facility] 11-06-2024 Refill [id number] Violet Herrera ie J 1970 Date Provider Department Center 11/06/2024 [id number]-QIVUPQCORY MCCOLLUM MP ORTHO MPORTHO No family history on file Reason for Visit and Comments: Med Refill [[id number]] [facility] Follow-Upon 11-03-2024 Follow-Up [id number] Violet Herrera ie J 1970 Date Provider Department Center 11/03/2024 LAN HAGEN MP ORTHO MPORTHO No family history on file Level of Service:89930 ID OFFICE/OUTPATIENT ESTABLISHED SF MDM 10 MIN () Reason for Visit and Comments: Follow-up [155923] Pain [136] Follow-up [558534] Pain [136] [facility] 36on 10-27-2024 36 Patient called to request refill on 10-27-24 Please see pended medication. Pharmacy Varied- [facility] - [address] [place] [address] Patient Good # [phone] [facility] Orders Onlyon 10-27-2024 Orders Only [id number] Violet Herrera ie J 1970 Date Provider Department [place] 10/27/2024 53498-BXUXYAERSVDFBRIGID HOLLOWAYMP ORTHO MPORTHO No family history on file [facility] 10-27-2024 Refill [id number] Violet Herrera ie J 1970 Date Provider Department Center 10/27/2024 3625-YURI MILLER MP ORTHO MPORTHO No family history on file Reason for Visit and Comments: Med Refill [[id number]] [facility] DRUG SCREEN, URINEon 025 AMPHETAMINE/METHAMP Negative Normal NEG [facility] Comment on above: Result Comment: AMPH /METH screening cut off = 1000 ng/mL Performed By: #### D HENDRICKSON #### [facility] ([id number]) [address] [place] [address] BARBITURATES Negative Normal NEG [facility] Comment on above: Result Comment: Veronika iturates screening cut off value = 200 ng/mL Performed By: #### D HENDRICKSON #### [facility] ([id number]) [address] [place] [address] BENZODIAZEPINES Positive Abnormal NEG [facility] Comment on above: Result Comment: Conf irmation available upon request. Benzodiazepines screening cut off value = 200 ng/mL Performed By: #### D HENDRICKSON #### [facility] ([id number]) [address] [place] [address] CANNABINOIDS Negative Normal NEG [facility] Comment on above: Result Comment: Malathi abinoids/THC screening cut off value = 50 ng/mL Performed By: #### D HENDRICKSON #### [facility] ([id number]) [address] [place] [address] COCAINE METABOLITE Negative Normal NEG [facility] Comment on above: Result Comment: Coca ine screening cut off value = 300 ng/mL Performed By: #### D HENDRICKSON #### [facility] ([id number]) [address] [place] [address] ECSTASY Negative Normal NEG [facility] Comment on above: Result Comment: Ecst asy screening cut off value = 500 ng/mL This report is intended for use in clinical monitoring or management of patients. Performed By: #### D HENDRICKSON #### [facility] ([id number]) [address] [place] [address] METHADONE Negative Normal NEG [facility] Comment on above: Result Comment: Meth adone screening cut off value = 300 ng/mL. Performed By: #### D HENDRICKSON #### [facility] ([id number]) [address] [place] [address] OPIATES Negative Normal NEG [facility] Comment on above: Result Comment: Opia ellen screening cut off value = 300 ng/mL NOTE: This test is used for the detection of codeine, hydrocodone (>1000 ng/mL), morphine and hydromorphone (>900 ng/mL) in urine. Performed By: #### D HENDRICKSON #### [facility] ([id number]) [address] [facility] [place] [address] OXYCODONE Positive Abnormal NEG [facility] Comment on above: Result Comment: Conf irmation available upon request. Oxycodone screening cut off value = 300 ng/mL NOTE: This test is used for the detection of oxycodone and oxymorphone in urine. Performed By: #### D HENDRICKSON #### [facility] ([id number]) [address] [facility] [place] [address] PHENCYCLIDINE Negative Normal NEG [facility] Comment on above: Result Comment: Phen cyclidine screening cut off value = 25 ng/mL Performed By: #### D HENDRICKSON #### [facility] ([id number]) [address] [facility] [place] [address] 36on 10-20-2024 36 Patient called to request refill on oxycodone Please see pended medication. [facility] [facility] [address] [place] [address] Patient Good # [phone] Normal [facility] Orders Onlyon 10-20-2024 Orders Only [id number] Violet Herrera J 1970 F Date Provider Department Center 10/20/2024 20166-ETWKHDGIULPUSUMMER HOLLOWAY ORTHO MPORTHO No family history on file Normal [facility] Refillon 10-20-2024 Refill [id number] Violet Herrera ie J 1970 F Date Provider Department Center 10/20/2024 874-VILLA, MARYANA MP ORTHO MPORTHO No family history on file Reason for Visit and Comments: Med Refill [[id number]] [facility] 3610-13-2024 36 Patient called to request refill on 10-13-24 Please see pended medication. [facility] [address] [place] [address], [facility] [address] [facility] [address] Patient Good # [phone] [facility] Orders Onlyon 10-13-2024 Orders Only [id number] SharonViolet ie J 1970 F Date Provider Department Center 10/13/2024 52570-QVCTRPAUAYPTBRIGID HOLLOWAYMP ORTHO MPORTHO No family history on file [facility] Refillon 10-13-2024 Refill [id number] Violet Herrera ie J 1970 F Date Provider Department Center 10/13/2024 89651-PBYESVCORY MCCOLLUM MP ORTHO MPORTHO No family history on file Reason for Visit and Comments: Med Refill [[id number]] [facility] 3610-07-2024 36 Spoke with [facility] they don't have lynda at [facility] patient will have to get CT done here call and left message for patient to schedule at [facility] 36 [facility] radiology called and would like to know the protocol for the lt knee ct for the lynda. Patient is scheduled for Saturday, but they would like a response by Saturday the if possible. Please return call at [phone] can ask for caden or janneth [facility] 36on 10-06-2024 36 Patient called to request refill on oxycodone Please see pended medication. [facility] [address] [place] [address], [place] - [address] [facility] [address] Patient Good # [phone] [facility] Orders Onlyon 10-06-2024 Orders Only [id number] Violet Herrera J 1970 F Date Provider Department Center 10/06/2024 72688-NPYLYSAFLUFZBRIGID HOLLOWAYMP ORTHO MPORTHO No family history on file [facility] Refillon 10-06-2024 Refill [id number] Violet Herrera J 1970 F Date Provider Department Center 10/06/2024 Yen4-MARYANA VILLA MP ORTHO MPORTHO No family history on file Reason for Visit and Comments: Med Refill [[id number]] [facility] 36on 09-29-2024 36 Patient called in fo r pain medication refill and got sent gabapentin states she is allergic to gabapentin and can't take it. [facility] 36 Patient called to request refill on 09-29-24 Please see pended medication. Pharmacy [facility]- [address] [place] [address] Patient Good # [phone] [facility] MM TOMOSYNTHESIS SCREENING B Ion 09-29-2024 [facility] [address] [place] [address] Mammography Report Signed Patient: ROCK HERRERA MR#: [id number] : 1970 Acct:[id number] Age/Sex: 54 / F ADM Date: 09/29/24 Loc: MAMMO Attending Dr: David Villalobos D.O. Ordering Physician: David Villalobos D.O. Results: Date of Service: 09/29/24 Follow Up: Procedure(s): MM tomosynthesis screening BI Accession Number(s): [id number] cc: David Villalobos D.O.; Nikki Vergara NP Patient Name: ROCK HERRERA MR#: [id number] : 1970 Exam Date: 09/29/2024 Ordering Doctor: DR David Villalobos . RADIOLOGY REPORT PROCEDURE: MM TOMOSYNTHESIS SCREENING BI COMPARISON: MM TOMOSYNTHESIS SCREENING BI, 09/27/2023. MG MAMM DIAGNOSTIC 3D TAJ CAD, 09/10/2022. INDICATIONS: Screening Calculator Name NCI Breast Cancer Risk Assessment Tool 5 Year Breast Cancer Risk 1.20% Lifetime Breast Cancer Risk 9.00% Personal Breast Cancer No Personal Ovarian Cancer No Treatments None Family Cancers Mother with ovarian cancer at age 60. LOCATION: The [facility] BREAST COMPOSITION: The breasts are heterogeneously dense,which may obscure small masses. FINDINGS: DIAGNOSTIC CATEGORY 2--BENIGN FINDING. NO CHANGE FROM COMPARISON. Scattered benign-appearing calcifications are present. Scattered benign-appearing lymph nodes are present. RIGHT BREAST: No significant suspicious finding. LEFT BREAST: No significant suspicious finding. RECOMMENDATIONS: ROUTINE MAMMOGRAM AND CLINICAL EVALUATION IN 12 MONTHS. PLEASE NOTE: A NORMAL MAMMOGRAM DOES NOT EXCLUDE THE POSSIBILITY OF BREAST CANCER. A CLINICALLY SUSPICIOUS PALPABLE LUMP SHOULD BE BIOPSIED. Dictated by: Mamie Coombs MD on 09/29/2024 at 14:43 Approved by: Mamie Coombs MD on 09/29/2024 at 14:44 Dictated By: Mamie Coombs M.D. Signed By: 09/29/24 1445 DD/ 1444 TD/TT: Retail Store Manager: [facility] Radiology, Radiologi MD mazin - 09/29/2024 [place] [address] Mammography Report Signed Patient: ROCK HERRERA MR#: [id number] : 1970 Acct:[id number] Age/Sex: 54 / F ADM Date: 09/29/24 Loc: MAMMO Attending Dr: David Villalobos D.O. Ordering Physician: David Villalobos D.O. Results: Date of Service: 09/29/24 Follow Up: Procedure(s): MM tomosynthesis screening BI Accession Number(s): [id number] cc: David Villalobos D.O.; Nikki Vergara NP Patient Name: ROCK HERRERA MR#: [id number] : 1970 Exam Date: 09/29/2024 Ordering Doctor: DR David Villalobos . RADIOLOGY REPORT PROCEDURE: MM TOMOSYNTHESIS SCREENING BI COMPARISON: MM TOMOSYNTHESIS SCREENING BI, 09/27/2023. MG MAMM DIAGNOSTIC 3D TAJ CAD, 09/10/2022. INDICATIONS: Screening Calculator Name NCI Breast Cancer Risk Assessment Tool 5 Year Breast Cancer Risk 1.20% Lifetime Breast Cancer Risk 9.00% Personal Breast Cancer No Personal Ovarian Cancer No Treatments None Family Cancers Mother with ovarian cancer at age 60. LOCATION: The [facility] BREAST COMPOSITION: The breasts are heterogeneously dense,which may obscure small masses. FINDINGS: DIAGNOSTIC CATEGORY 2--BENIGN FINDING. NO CHANGE FROM COMPARISON. Scattered benign-appearing calcifications are present. Scattered benign-appearing lymph nodes are present. RIGHT BREAST: No significant suspicious finding. LEFT BREAST: No significant suspicious finding. RECOMMENDATIONS: ROUTINE MAMMOGRAM AND CLINICAL EVALUATION IN 12 MONTHS. PLEASE NOTE: A NORMAL MAMMOGRAM DOES NOT EXCLUDE THE POSSIBILITY OF BREAST CANCER. A CLINICALLY SUSPICIOUS PALPABLE LUMP SHOULD BE BIOPSIED. Dictated by: Mamie Coombs MD on 09/29/2024 at 14:43 Approved by: Mamie Coombs MD on 09/29/2024 at 14:44 Dictated By: Mamie Coombs M.D. Signed By: 09/29/24 1445 DD/ 1444 TD/TT: Retail Store Manager: [facility] Radiology Study observation (narrative) [facility] MM TOMOSYNTHESIS SCREENING B IOrdered By: Radiologist Radiology on 09-29-2024 [facility] Work Phone: Orders Onlyon 09-29-2024 Orders Only [id number] Violet Herrera J 1970 F Date Provider Department Center 09/29/2024 15601-BKNJIFPWEJPDSUMMER HOLLOWAY No family history on file Normal [facility] Refillon 09-29-2024 Refill [id number] Violet Herrera J 1970 F Date Provider Department Center 09/29/2024 21255-XTJLZMCORY MCCOLLUM MP No family history on file Reason for Visit and Comments: Med Refill [[id number]] Normal [facility] Follow-Upon 09-28-2024 Follow-Up [id number] Violet Herrera J 1970 F Date Provider Department Center 09/28/2024 JOSSELINE NGUYEN MP ORTHO MPORTHO No family history on file Level of Service:81502 ID OFFICE/OUTPATIENT ESTABLISHED MOD MDM 30 MIN (GC,57) Reason for Visit and Comments: Pain [136] [facility] 36on 09-25-2024 36 Called derik no answer unable to leave message [facility] 36 Derik from [facility] radiolo gy is wondering if there is anything different he needs to do for the CT for the Lynda knee surgery or if it is the same protocol. Phone number [phone] [facility] Follow-Upon 09-22-2024 Follow-Up [id number] BarbirmViolet 1970 Date Provider Department Center 09/22/2024 LAN HAGEN MP ORTHO MPORTHO No family history on file Level of Service:31237 ID POSTOP FOLLOW UP VISIT RELATED TO ORIGINAL PX () Reason for Visit and Comments: Follow-up [[id number]] [facility] COMPREHENSIVE METABOLIC PANE Bulmaro 09-15-2024 Albumin [Mass/Vol] 4.2 g/dL Normal 3.2-5.3 [facility] Comment on above: Performed By: #### C ALEXI MARIE, 13624-1 #### [facility] ([id number]) [address], [address] [place] [address] ALP [Catalytic activity/Vol] 96 U/L Normal 39-130 [facility] Comment on above: Performed By: #### C ALEXI MARIE, 56436-0 #### [facility] ([id number]) [address], [address] [place] [address] ALT [Catalytic activity/Vol] 15 U/L Normal 0-31 [facility] Comment on above: Performed By: #### [place], [address]-4 #### [facility] ([id number]) [address], [address] [place] [address] Anion gap [Moles/Vol] 11 mmol/L Normal 5-15 [facility] Comment on above: Performed By: #### [place] [address]-3 #### [facility] ([id number]) [address], [address] [place] [address] AST [Catalytic activity/Vol] 22 U/L Normal 0-41 [facility] Comment on above: Performed By: #### [place] [address]-4 #### [facility] ([id number]) [address], [address] [place] [address] Bilirubin [Mass/Vol] 0.5 mg/dL Normal 0.3-1.2 [facility] Comment on above: Performed By: #### [place] [address]-2 #### [facility] ([id number]) [address], [address] [place] [address] Calcium [Mass/Vol] 10.0 mg/dL Normal 8.5-10.5 [facility] Comment on above: Performed By: #### [place] [address]-5 #### [facility] ([id number]) [address], [address] [place] [address] Chloride [Moles/Vol] 101 mmol/L Normal 98-109 [facility] Comment on above: Performed By: #### [place] [address]-6 #### [facility] ([id number]) [address], [address] [place] [address] CO2 [Moles/Vol] 29 mmol/L Normal 22-32 [facility] Comment on above: Performed By: #### [place] [address]-4 #### [facility] ([id number]) [address], [address] [place] [address] Creatinine [Mass/Vol] 0.95 mg/dL Normal 0.40-1.00 [facility] Comment on above: Result Comment: METH OD TRACEABLE TO IDMS STANDARD Performed By: #### C ALEXI MARIE 03608-1 #### [facility] ([id number]) [address] [place] [address] GFR/1.73 sq M.predicted among non-blacks MDRD (S/P/Bld) [Vol rate/Area] 71 mL/min/{1.73_m2} Normal >59 [facility] Comment on above: Result Comment: Reported eGFR is based on the CKD-EPI 2020 equation that does not use a race coefficient. Performed By: #### [place] [address]-8 #### [facility] ([id number]) [address], [address] [place] [address] Glucose [Mass/Vol] 113 mg/dL High 65-99 [facility] Comment on above: Performed By: #### [place] [address]-2 #### [facility] ([id number]) [address], [address] [place] [address] Potassium [Moles/Vol] 3.6 mmol/L Normal 3.5-5.0 [facility] Comment on above: Performed By: #### [place], [address]-1 #### [facility] ([id number]) [address], [address] [place] [address] Protein [Mass/Vol] 7.5 g/dL Normal 6.0-8.0 [facility] Comment on above: Performed By: #### [place], [address]-9 #### [facility] ([id number]) [address] [place] [address] Sodium [Moles/Vol] 141 mmol/L Normal 134-146 [facility] Comment on above: Performed By: #### [place], [address]-3 #### [facility] ([id number]) [address] [address] [place] [address] Urea nitrogen [Mass/Vol] 4 mg/dL Low 5-23 [facility] Comment on above: Performed By: #### C , [facility], 05957-3 #### [facility] ([id number]) [address] [place] [address] DRUG SCREEN, URINEon 025 AMPHETAMINE/METHAMP Negative Normal NEG [facility] Comment on above: Result Comment: AMPH /METH screening cut off = 1000 ng/mL Performed By: #### D HENDRICKSON #### [facility] ([id number]) [address], [address] [place] [address] BARBITURATES Negative Normal NEG [facility] Comment on above: Result Comment: Veronika iturates screening cut off value = 200 ng/mL Performed By: #### D HENDRICKSON #### [facility] ([id number]) [address], [address] [place] [address] BENZODIAZEPINES Positive Abnormal NEG [facility] Comment on above: Result Comment: Conf irmation available upon request. Benzodiazepines screening cut off value = 200 ng/mL Performed By: #### D HENDRICKSON #### [facility] ([id number]) [address], [address] [place] [address] CANNABINOIDS Negative Normal NEG [facility] Comment on above: Result Comment: Malathi abinoids/THC screening cut off value = 50 ng/mL Performed By: #### D HENDRICKSON #### [facility] ([id number]) [address] [place] [address] COCAINE METABOLITE Negative Normal NEG [facility] Comment on above: Result Comment: Coca ine screening cut off value = 300 ng/mL Performed By: #### D HENDRICKSON #### [facility] ([id number]) [address], [address] [place] [address] ECSTASY Negative Normal NEG [facility] Comment on above: Result Comment: Ecst asy screening cut off value = 500 ng/mL This report is intended for use in clinical monitoring or management of patients. Performed By: #### D HENDRICKSON #### [facility] ([id number]) [facility] access hospital[facility], [address] [place] [address] METHADONE Negative Normal NEG [facility] Comment on above: Result Comment: Meth adone screening cut off value = 300 ng/mL. Performed By: #### D HENDRICKSON #### [facility] ([id number]) [address] [place] [address], [address] [place] [address] OPIATES Negative Normal NEG [facility] Comment on above: Result Comment: Opia ellen screening cut off value = 300 ng/mL NOTE: This test is used for the detection of codeine, hydrocodone (>1000 ng/mL), morphine and hydromorphone (>900 ng/mL) in urine. Performed By: #### D HENDRICKSON #### [facility] ([id number]) [address] [place] [address], [address] [place] [address] OXYCODONE Positive Abnormal NEG [facility] Comment on above: Result Comment: Conf irmation available upon request. Oxycodone screening cut off value = 300 ng/mL NOTE: This test is used for the detection of oxycodone and oxymorphone in urine. Performed By: #### D HENDRICKSON #### [facility] ([id number]) [address] [place] [address], [address] [place] [address] PHENCYCLIDINE Negative Normal NEG [facility] Comment on above: Result Comment: Phen cyclidine screening cut off value = 25 ng/mL Performed By: #### D HENDRICKSON #### [facility] ([id number]) [address] [facility] [address] [place] [address] HGB A1C (GLYCO-HGB)on 2024 Glucose [Mass/Vol] 126 mg/dL Normal [facility] Comment on above: Performed By: #### C CYNTHIA, HAJessica, 50389-7 #### [facility] ([id number]) [address], [address] [place] [address] HbA1c (Bld) [Mass fraction] 6.0 % High 4.4-5.6 [facility] Comment on above: Result Comment: NOTE ADA Guidelines Result HgbA1c Normal : less than 5.7 % Prediabetes : 5.7 % to 6.4 % Diabetes : > 6.4 % Use with caution in patients with abnormal hemoglobin variants as the half-life of red blood cells and in vivo glycation rates are affected. Performed By: #### [place], [address]-0 #### [facility] ([id number]) [address], [address] [place] [address] Lipid 1996 panelon 5 Cholesterol [Mass/Vol] 165 mg/dL Normal 150-200 [facility] Comment on above: Performed By: #### [place], [address]-8 #### [facility] ([id number]) [address], [address] [place] [address] Cholesterol in HDL [Mass/Vol] 42 mg/dL Normal >39 [facility] Comment on above: Result Comment: HDL <40 mg/dL - High Risk HDL > or = 40mg/dL- Desirable HDL >60 mg/dL - Negative Risk Performed By: #### [place], [address]-7 #### [facility] ([id number]) [address], [address] [place] [address] Cholesterol in LDL [Mass/Vol] 67 mg/dL Normal <130 [facility] Comment on above: Result Comment: LDL <100 mg/dL - Desirable LDL >160 mg/dL - High Risk Performed By: #### C ALEXI MARIE, 54554-1 #### [facility] ([id number]) [address] [place] [address] Cholesterol in VLDL [Mass/Vol] 56 mg/dL High 0-30 [facility] Comment on above: Performed By: #### C ALEXI MARIE, 64649-8 #### [facility] ([id number]) [address], [address] [place] [address] CHOLESTEROL:HDL 3.9 Normal 1.0-5.0 [facility] Comment on above: Performed By: #### [place], [address]-9 #### [facility] ([id number]) [address], [address] [place] [address] Triglyceride [Mass/Vol] 281 mg/dL High 27-150 P [facility] Comment on above: Performed By: #### [place], [address]-1 #### [facility] ([id number]) [address], [address] [place] [address] 36on 09-08-2024 36 Patient called to request refill on Percocet Please see pended medication. [facility] Patient Good # [phone] Normal [facility] 36 Patient called and n eeds a refill on pain medication Normal [facility] Orders Onlyon 09-08-2024 Orders Only [id number] Violet Herrera ie J 1970 F Date Provider Department Center 09/08/2024 07274-NLWEHYVBMSWFSUMMER HOLLOWAY ORTHO MPORTHO No family history on file [facility] Refillon 09-08-2024 Refill [id number] Violet Herrera ie J 1970 F Date Provider Department Center 09/08/2024 803-YAMILETH SAEED MP ORTHO MPORTHO No family history on file [facility] 36on 08-31-2024 36 Already refilled Normal [facility] 36 Patient would like a refill of her pain medication Normal [facility] 36 Patient called to request refill on percocet 5-325 mg. Please see pended medication. [facility] - [place], [place] - [address] [facility] [address] [facility] [address] [facility] [address] [id number] [place], [place] - [address] [facility] CORNER OF [facility] [address] [facility] [address] Patient Good # [phone] [facility] Orders Onlyon 08-31-2024 Orders Only [id number] Violet Herrera ie J 1970 F Date Provider Department Center 08/31/2024 59483-OTSNFOWUAVBVSUMMER HOLLOWAY ORTHO MPORTHO No family history on file [facility] Refillon 08-31-2024 Refill [id number] Violet Herrera J 1970 F Date Provider Department Center 08/31/2024 LAN HAGEN MP ORTHO MPORTHO No family history on file Reason for Visit and Comments: Med Refill [[id number]] [facility] 36on 08-24-2024 36 Patient called state d she needs a refill of her pain medications Normal [facility] Orders Onlyon 08-24-2024 Orders Only [id number] Violet Herrera ie J 1970 F Date Provider Department Center 08/24/2024 55654-UARZNAWPKLGPSUMMER CANELA ORTHO MPORTHO No family history on file [facility] Follow-Upon 08-17-2024 Follow-Up [id number] Violet Herrera ie J 1970 F Date Provider Department Center 08/17/2024 JOSSELINE NGUYEN MP ORTHO MPORTHO No family history on file Level of Service:11258 ID OFFICE/OUTPATIENT ESTABLISHED MOD MDM 30 MIN Reason for Visit and Comments: New Patient [632] Pain [136] Normal [facility] Office Visiton 08-17-2024 Follow-up visit [id number] Violet Herrera ie J 1970 F Date Provider Department Center 08/17/2024 SriIVONNELAN Kaminski MP ORTHO MPORTHO No family history on file Level of Service:66747 ID POSTOP FOLLOW UP VISIT RELATED TO ORIGINAL PX Reason for Visit and Comments: Pain [136] Post-op [483] Normal [facility] Orders Onlyon 08-17-2024 Orders Only [id number] Violet Herrera ie J 1970 F Date Provider Department Center 08/17/2024 46673-SFTVZDNBDCXNPONCHO HOLLOWAY*MP ORTHO MPORTHO No family history on file [facility] Heart and Vascular Office/Cl inic [...] 4. Normal estimated pulmonary artery pressure. [1] LHC with Dr. Beltran on 03/03/2020: CONCLUSIONS: 1. [...] Metatarsal (11/21/2022), Esophagogastroduodenosc (more content not included)... [facility] Comment on above: Result Comment: Elec tronically Signed By: Anoop WALSH, Kehinde Thibodeaux\.br\Date and Time Signed: 08/13/24 13:28 EST 36on 08-10-2024 36 Patient called and checked the status of her medication. [employer] Architect informed her Dr. Rubi is not in the office and will get to it as soon as possible. [facility] 36 Already filled [facility] 36 Patient called requesting refill. Patient called to request refill on Perocoet Please see pended medication. [facility] Patient Good # [phone] [facility] 36 Patient called again today stating that the pharmacy has not received a script for the Percocet 5-325 mg. Please advise. Thank you. [facility] Orders Onlyon 08-10-2024 Orders Only [id number] Violet Herrera 1970 F Date Provider Department Center 08/10/202496558-HEYRJVRDWOUMAR [facility] SURG [facility] No family history on file [facility] 36on 08-08-2024 36 Order was put in and pharmacy was changed, waiting for approval [facility] Orders Onlyon 08-08-2024 Orders Only [id number] Violet Herrera angelika Grewal 1970 F Date Provider Department Center 08/08/2024 803-YAMILETH SAEED MP ORTHO MPORTHO No family history on file [facility] 36on 08-07-2024 36 Patient states she n eeds her [facility] [place] [address] Please contact patient with any problems or concerns at [phone] [facility] 36 Patient called to request refill on Percocet Please see pended medication. Pharmacy [facility] [address] Patient Good # [phone] [facility] IGP,APTIMA HPV,AGE GDLNon AGE GDLN ACOG TESTING Note . [facility] Comment on above: TESTS RESULT FLAG UN ITS REF RANGE LAB Clinician Provided Cytology Information Source.............Vagina No. of containers..01 ThinPrep Vial Age Algo ACOG Ellen... FLAG LEGEND: L-Low Normal,H-High Normal,LL-Alert Low,HH-Alert High <-Panic Low,>-Panic High,A-Abnormal,AA-Critical Abnormal Performed at: 01 =[address] [place] [address] Estelle Mckeon MD, HPV APTIMA Negative Negative [facility] Comment on above: This nucleic acid am plification test detects fourteen high- risk HPV types (16,18,31,33,35,39,45,51,52,56,58,59,66,68) without differentiation. Performed at: =[address] [id number] Electroneurodiagnostic Technician: Estelle Mckeon MD, Phone: [phone] Performed at: [address] [id number] Electroneurodiagnostic Technician: Estelle Mckeon MD, Phone: [phone] IGP, APTIMA HPV, RFX 16/18,45 Note . [facility] Comment on above: TESTS RESULT FLAG U NITS REF RANGE LAB DIAGNOSIS: 02 NEGATIVE FOR INTRAEPITHELIAL LESION OR MALIGNANCY. Specimen adequacy: 02 Satisfactory for evaluation. Performed by: 02 [employer] [employer] Courtesy Clerk (ASCP) . 02 Note: Note 02 The [...] <-Panic Low,>-Panic High,A-Abnormal,AA-Critical Abnormal Performed at: [address] [address] Estelle Mckeon MD, SPATULA-ALONE [facility] Anesthesiaon 08-03-2024 Anesthesia [id number] Violet Herrera 1970 F Date Provider Department Center 08/03/2024 [facility] No family history on file Normal [facility] HPon 08-03-2024 History Of Present Illness Rock Herrera is a 54 y.o. female presenting [...] Heart valve disease, Hyperlipidemia, Hypertension, Myocardial infarction ([facility]), and Sleep apnea. Surgical History She has [...] products, Iodinated contrast media, Ketorolac, Other, Paroxetine, Sulfamethoxazole-trimeth oprim, Amitriptyline, Atomoxetine, Bupropion, Doxycycline, Gabapentin, Meloxicam, Oxcarbazepine, Ropinirole, Ziprasidone, Aloe, Dexamethasone (pf), Duloxetine, Eicosapentaenoic acid, Methocarbamol, Milnacipran, Moxifloxacin-sod.chlorid e(iso), Sodium chloride-aloe vera, Adhesive, Adhesive tape-silicones, Fluticasone [...] submuscular ulnar nerve transposition left elbow Normal [facility] NURSNOTEon 08-03-2024 NURSRYLEEE Family at bedside RN reviewed discharge and gave copy. Normal [facility] OPNOTEon 08-03-2024 OPNOTE Operative Note Patient: Rock Herrera Date of Surgery: 08/03/2024 : 1970 Pre-operative Diagnosis: 1. Recurrent Cubital Tunnel Syndrome (ulnar neuropathy) left Elbow, 2. Recurrent carpal tunnel syndrome left hand Post-operative Diagnosis: same Operation: Submuscular Transposition of Ulnar Nerve left Elbow (96941) Carpal Tunnel Release left Hand (83611) Surgeon: Lan Rubi MD Auger Press Operator: Radha Whitley MD Staff: Press Tender Star Signal: Luca Cabrera RN; Champ Sheehan RN Relief [...] to the level of the arc[place]. We carefully released the ulnar nerve through [...] and the flexor origin is repaired with [id number] sutures of 2-0 Vicryl. The fasci (more content not included)... Normal [facility] POCT GLUCOSE METER UNSOLICIT ED RESULTSon 08-03-2024 Glucose [Mass/Vol] 132 mg/dL [facility] Comment on above: Order Comment: Waive d Testing in the ED is performed under the ED CLIA certificate #[id number]. 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 Do not wear perfume, make-up, nail citizen of [place], or lotions on the day of your [...] need to make any changes, please call [phone]. Notify your surgeon if you develop any illness such as a cold, cough, fever, sore throat or vomiting between now and your surgery. Thank you for entrusting us with your care. [facility] Surgical Services Team Normal [facility] Abstracton 07-23-2024 Abstract [id number] Violet Herrera 1970 F Date Provider Department Center 07/23/2024 803-YAMILETH SAEED MP ORTHO [facility] No family history on file [facility] 36on 07-21-2024 36 Below number is the wrong number, the number [phone] is out of order, and spoke with patient and she gave me the same number, called number it rang one time and the message: the number you dialed is not in service at this time and hung up. [facility] 36 Attempted to call keshia jerez to get this report, they sent me to a new number [phone], and the report will be sent over. [facility] 36 [facility] this morning to have it faxed [place] [address]383on 07-20-2024 [address] Danica Sanchez to get the office to fax over the EMG results so we have it for the peer to peer [facility] Telephoneon 07-20-2024 Telephone [phone] Violet Herrera 1970 F Date Provider Department [place] 07/20/2024 803-YAMILETH SAEED MP ORTHO MPORTHO No family history on file [facility] CBC AND AUTO DIFFon 07-07-20 24 ABSOLUTE BASOPHIL 0.0 X10E9/L Normal 0.0-0.2 [facility] Comment on above: Performed By: #### C BCA, CMP, 3040-3, 03444-6, 55906-7 ####[facility] ([id number])[address] [place] [address] ABSOLUTE NEUTROPHIL 9.9 X10E9/L High 1.5-6.6 [facility] Comment on above: Performed By: #### C BCA, CMP, 3040-3, 09327-3, 73913-7 ####[facility] ([id number])[address] [place] [address] 12453 Basophils/100 WBC (Bld) 0.3 % Normal [facility] Comment on above: Performed By: #### C BCA, CMP, 3040-3, 55153-1, 53326-8 ####[facility] ([id number])[address] [place] [address] 05731 Eosinophils (Bld) [#/Vol] 0.2 10*3/uL Normal 0.0-0.4 [facility] Comment on above: Performed By: #### C FELIX, CMP, 3040-3, 27668-0, 98445-6 ####[facility] ([id number])[address] [place] [address] 05069 Eosinophils/100 WBC (Bld) 1.6 % Normal [facility] Comment on above: Performed By: #### C FELIX, CMP, 3040-3, 31355-2, 50682-8 ####[facility] ([id number])[address] [place] [address] 36233 Erythrocyte distribution width (RBC) [Ratio] 14.9 % Normal 11.5-15.0 [facility] Comment on above: Performed By: #### C FELIX, CMP, 3040-3, 68464-5, 42922-8 ####[facility] ([id number])[address] [place] [address] 65142 Hematocrit (Bld) [Volume fraction] 42.7 % Normal 35-47 [facility] Comment on above: Performed By: #### Veronica WASHINGTON, CMP, 3040-3, 52544-2, 22148-3 ####[facility] ([id number])[address] [place] [address] 61060 Hemoglobin (Bld) [Mass/Vol] 14.6 g/dL Normal 11.7-15.5 [facility] Comment on above: Performed By: #### Veronica WASHINGTON, CMP, 3040-3, 95035-8, 14158-5 ####[facility] ([id number])[address] [place] [address] 28024 Lymphocytes (Bld) [#/Vol] 3.7 10*3/uL High 1.0-3.5 [facility] Comment on above: Performed By: #### C BCA, CMP, 3040-3, 52606-6, 25758-2 ####[facility] ([id number])[address] [place] [address] 26840 Lymphocytes/100 WBC (Bld) 25.3 % Normal [facility] Comment on above: Performed By: #### C BCA, CMP, 3040-3, 46859-3, 88984-8 ####[facility] ([id number])[address] [place] [address] 49720 MCH (RBC) [Entitic mass] 33.6 pg Normal 27-34 [facility] Comment on above: Performed By: #### C FELIX, CMP, 3040-3, 37156-9, 50643-5 ####[facility] ([id number])[address] [place] [address] 27273 MCHC (RBC) [Mass/Vol] 34.3 g/dL Normal 32-36 [facility] Comment on above: Performed By: #### C BCA, CMP, 3040-3, 01488-0, 52699-2 ####[facility] ([id number])[address] [place] [address] 91165 MCV (RBC) [Entitic vol] 98 fL Normal 80-100 [facility] Comment on above: Performed By: #### C BCA, CMP, 3040-3, 49487-2, 13051-9 ####[facility] ([id number])[address] [place] [address] 76654 Monocytes (Bld) [#/Vol] 0.9 10*3/uL Normal 0-0.9 [facility] Comment on above: Performed By: #### C BCA, CMP, 3040-3, 06822-9, 04046-8 ####[facility] ([id number])[address] [place] [address] 47760 Monocytes/100 WBC (Bld) 5.8 % Normal [facility] Comment on above: Performed By: #### Veronica WASHINGTON, CMP, 3040-3, 99794-1, 04681-6 ####[facility] ([id number])[address] [place] [address] 55852 Neutrophils/100 WBC (Bld) 67.0 % Normal [facility] Comment on above: Performed By: #### Veronica WASHINGTON, CMP, 3040-3, 57177-0, 68221-1 ####[facility] ([id number])[address] [place] [address] 63797 Platelet mean volume (Bld) [Entitic vol] 8.5 fL Normal 7-12 [facility] Comment on above: Performed By: #### Veronica WASHINGTON, CMP, 3040-3, 78339-5, 34361-1 ####[facility] ([id number])[address] [place] [address] 56452 Platelets (Bld) [#/Vol] 228 10*3/uL Normal 150-450 [facility] Comment on above: Performed By: #### Veronica WASHINGTON, CMP, 3040-3, 24001-5, 62090-0 ####[facility] ([id number])[address] [place] [address] 97975 RBC COUNT 4.35 X10E12/L Normal 3.80-5.20 [facility] Comment on above: Performed By: #### Veronica WASHINGTON, CMP, 3040-3, 92548-2, 77119-5 ####[facility] ([id number])[address] [place] [address] 27615 WBC (Bld) [#/Vol] 14.8 10*3/uL High 4.0-11.0 [facility] Comment on above: Performed By: #### C BCA, CMP, 3040-3, 30235-7, 97702-1 ####[facility] ([id number])[address] [place] [address] 72820 COMPREHENSIVE METABOLIC PANE Bulmaro 07-07-2024 Albumin [Mass/Vol] 3.9 g/dL Normal 3.2-5.3 [facility] Comment on above: Performed By: #### C BCA, CMP, 3040-3, 02637-4, 81834-2 ####[facility] ([id number])[address] [place] [address] 83515 ALP [Catalytic activity/Vol] 104 U/L Normal 39-130 [facility] Comment on above: Performed By: #### C BCA, CMP, 3040-3, 08925-6, 92410-7 ####[facility] ([id number])[address] [place] [address] [place] [address] ALT [Catalytic activity/Vol] 27 U/L Normal 0-31 [facility] Comment on above: Performed By: #### C BCA, CMP, 3040-3, 34441-4, 35294-5 ####[facility] ([id number])[address] [place] [address] 79984 Anion gap [Moles/Vol] 10 mmol/L Normal 5-15 [facility] Comment on above: Performed By: #### C BCA, CMP, 3040-3, 83821-9, 86678-9 ####[facility] ([id number])[address] [place] [address] 57496 AST [Catalytic activity/Vol] 19 U/L Normal 0-41 [facility] Comment on above: Performed By: #### C BCA, CMP, 3040-3, 37169-2, 02832-5 ####[facility] ([id number])[address] [place] [address] [place] [address] Bilirubin [Mass/Vol] 0.6 mg/dL Normal 0.3-1.2 [facility] Comment on above: Performed By: #### C BCA, CMP, 3040-3, 49284-7, 13722-5 ####[facility] ([id number])[address] [place] [address] 94204 Calcium [Mass/Vol] 9.7 mg/dL Normal 8.5-10.5 [facility] Comment on above: Performed By: #### C FELIX, CMP, 3040-3, 65710-1, 50071-4 ####[facility] ([id number])[address] [place] [address] 22306 Chloride [Moles/Vol] 101 mmol/L Normal 98-109 [facility] Comment on above: Performed By: #### C BCA, CMP, 3040-3, 62624-3, 15569-7 ####[facility] ([id number])[address] [place] [address] 36834 CO2 [Moles/Vol] 26 mmol/L Normal 22-32 [facility] Comment on above: Performed By: #### C BCA, CMP, 3040-3, 47285-3, 87119-9 ####[facility] ([id number])[address] [place] [address] 25298 Creatinine [Mass/Vol] 0.95 mg/dL Normal 0.40-1.00 [facility] Comment on above: Result Comment: METH OD TRACEABLE TO IDMS STANDARD Performed By: #### C FELIX, CMP, 3040-3, 60918-2, 12808-5 ####[facility] ([id number])[address] [place] [address] 03298 GFR/1.73 sq M.predicted among non-blacks MDRD (S/P/Bld) [Vol rate/Area] 72 mL/min/{1.73_m2} Normal >59 [facility] Comment on above: Result Comment: Reported eGFR is based on the CKD-EPI 2020 equation that does not use a race coefficient. Performed By: #### C FELIX, CMP, 3040-3, 55309-4, 04615-2 ####[facility] ([id number])[address] [place] [address] 78178 Glucose [Mass/Vol] 152 mg/dL High 65-99 [facility] Comment on above: Performed By: #### C FELIX, CMP, 3040-3, 43856-8, 78434-7 ####[facility] ([id number])[address] [place] [address] 46610 Potassium [Moles/Vol] 3.8 mmol/L Normal 3.5-5.0 [facility] Comment on above: Performed By: #### C FELIX, CMP, 3040-3, 85199-5, 08587-6 ####[facility] ([id number])[address] [place] [address] 87434 Protein [Mass/Vol] 7.3 g/dL Normal 6.0-8.0 [facility] Comment on above: Performed By: #### C FELIX, CMP, 3040-3, 27345-4, 10283-1 ####[facility] ([id number])[address] [place] [address] 48460 Sodium [Moles/Vol] 137 mmol/L Normal 134-146 [facility] Comment on above: Performed By: #### C FELIX, CMP, 3040-3, 88102-2, 44127-6 ####[facility] ([id number])[address] [place] [address] 19752 Urea nitrogen [Mass/Vol] 9 mg/dL Normal 5-23 [facility] Comment on above: Performed By: #### C BCA, CMP, 3040-3, 97336-9, 18769-7 ####[facility] ([id number])[address] [place] [address] CT ABDOMEN AND PELVIS W CONT on [...] Pastora Baron DO on 07/07/2024 7:30 PM Alex Guadarrama MD have personally reviewed the image(s) and agree with and/or edited the report Finalized by Alex Varghese MD on 07/07/2024 7:42 PM Normal [facility] Fibrin D-dimer DDU (PPP) [Ma ss/Vol]on 07-07-2024 D DIMER 279 ng/mL DDU High <255 [facility] Comment on above: Result Comment: Results [...] the D-Dimer level. Performed By: #### C BERONICA WASHINGTON, 3040-3, 61229-7, 08095-1 ####[facility] ([id number])[address] [place] [address] 41590 LIPASEon 07-07-2024 Lipase [Catalytic activity/Vol] 23 U/L Normal 17-40 [facility] Comment on above: Performed By: #### C BERONICA WASHINGTON, 3040-3, 31667-3, 64396-1 ####[facility] ([id number])[address] [place] [address] 23763 Troponin I.cardiac High sens itivity method [Mass/Vol]on 07-07-2024 1 HOUR TROP I, HIGH SENSITIVITY 3 ng/L Normal <16 [facility] Comment on above: Performed By: #### 8 9579-7 ####[facility] ([id number])[address] [place] [address] 72337 TROPONIN I, HIGH SENSITIVITY 3 ng/L Normal <16 [facility] Comment on above: Performed By: #### C BERONICA WASHINGTON, 3040-3, 88212-6, 17023-6 ####[facility] ([id number])[address] [place] [address] 80190 URINE CULTUREon 07-07-2024 Bacteria identified Cx Nom [...] F TOBRAMYCIN S <=1 F TRIMETH/SULFAMETHOXAZOLE S <=/ F Susceptible [facility] Comment on above: Performed By: #### 6 30-4 ####[facility] ([id number])[address] [place] [address], [address] [place] [address] URN MACROSCOPIC NURon 2023 BILIRUBIN LISA Negative Normal NEG [facility] Comment on above: Performed By: #### N UM ####[facility] ([id number])[address] [place] [address] 23310 BLOOD/HGB LISA Trace Abnormal NEG [facility] Comment on above: Performed By: #### N UM ####[facility] ([id number])[address] [place] [address] 60753 GLUCOSE LISA Negative Normal NEG [facility] Comment on above: Performed By: #### N UM ####[facility] ([id number])[address] [place] [address] 66632 KETONES LISA Negative Normal NEG [facility] Comment on above: Performed By: #### N UM ####[facility] ([id number])[address] [place] [address] 45545 LEUKOCYTE ESTERASE LISA Negative Normal NEG [facility] Comment on above: Performed By: #### N UM ####[facility] ([id number])[address] [place] [address] 48624 NITRITE LISA Positive Abnormal NEG [facility] Comment on above: Performed By: #### N UM ####[facility] ([id number])[address] [place] [address] 24525 PH LISA 5.0 Normal 5.0-8.5 [facility] Comment on above: Performed By: #### N UM ####[facility] ([id number])[address] [place] [address] PROTEIN LISA 30 mg/dL Abnormal NEG [facility] Comment on above: Performed By: #### N UM ####[facility] ([id number])[address] [place] [address] 92642 SPECIFIC GRAVITY LISA <=1.005 Normal 1.003-1 .03 5 [facility] Comment on above: Performed By: #### N UM ####[facility] ([id number])[address] [place] [address] 70337 UROBILINOGEN LISA 0.2 eu/dL Normal <1.1 [facility] Comment on above: Performed By: #### N UM ####[facility] ([id number])[address] [place] [address] 77306 XR CHEST 1 VWon 07-07-2024 XR CHEST 1 VW XR CHEST 1 VW Single view chest XR CHEST 1 VW History: Chest pain Comparison: May 18, 2022 Impression: * No consolidation or pleural fluid. No acute findings. Finalized by Alex Varghese MD on 07/07/2024 8:09 PM Normal [facility] XR KNEE LT 3 VWSon 4 [...] Khan MD on 06/28/2024 2:19 PM Normal [facility] Office Visiton 06-16-2024 Follow-up visit [id number] Violet Herrera 1970 F Date Provider Department Center 06/16/2024 [facility] MPORTHO No family history on file Level of Service:75578 ID OFFICE/OUTPATIENT NEW LOW MDM 30 MINUTES Reason for Visit and Comments: Pain [136] New Patient [632] Normal [facility] COMPLETE BLOOD COUNTon 05-04 Erythrocyte distribution width (RBC) [Ratio] 14.1 % Normal 11.5-15.0 [facility] Comment on above: Performed By: #### 1 5205-8, CBC, 1987-12, 3016-3, 78011-9, 19216-9, 44833-0 #### [facility] ([id number]) [address], [address] [place] [address] Hematocrit (Bld) [Volume fraction] 42.9 % Normal 35-47 [facility] Comment on above: Performed By: #### 1 5205-8, CBC, 1987-12, 6-3, 26071-2, 27638-1, 39230-0 #### [facility] ([id number]) [address], [address] [place] [address] Hemoglobin (Bld) [Mass/Vol] 14.8 g/dL Normal 11.7-15.5 [facility] Comment on above: Performed By: #### 1 5205-8, CBC, 1987-12, 3015-3, 05839-8, 74263-0, 63897-7 #### [facility] ([id number]) [address], [address] [place] [address] MCH (RBC) [Entitic mass] 34.1 pg High 27-34 [facility] Comment on above: Performed By: #### 1 5205-8, CBC, 1987-12, 6-3, 03529-3, 64310-0, 44227-9 #### [facility] ([id number]) [address], [address] [place] [address] MCHC (RBC) [Mass/Vol] 34.6 g/dL Normal 32-36 [facility] Comment on above: Performed By: #### 1 5205-8, CBC, 1987-12, 3016-3, 94512-6, 57050-3, 27129-0 #### [facility] ([id number]) [address], [address] [place] [address] MCV (RBC) [Entitic vol] 99 fL Normal 80-100 [facility] Comment on above: Performed By: #### 1 5205-8, CBC, 1987-12, 301-3, 83165-3, 70100-7, 63003-8 #### [facility] ([id number]) [address], [address] [place] [address] Platelet mean volume (Bld) [Entitic vol] 9.1 fL Normal 7-12 [facility] Comment on above: Performed By: #### 1 5205-8, CBC, 1987-12, 301-3, 58123-5, 44385-1, 33788-5 #### [facility] ([id number]) [address], [address] [place] [address] Platelets (Bld) [#/Vol] 201 10*3/uL Normal 150-450 [facility] Comment on above: Performed By: #### 1 5205-8, CBC, 1987-12, 3016-3, 12740-6, 18857-9, 88910-2 #### [facility] ([id number]) [address], [address] [place] [address] RBC COUNT 4.36 X10E12/L Normal 3.80-5.20 [facility] Comment on above: Performed By: #### 1 5205-8, CBC, 1987-12, 3016-3, 27678-7, 57366-4, 99002-2 #### [facility] ([id number]) [address], [address] [place] [address] WBC (Bld) [#/Vol] 13.4 10*3/uL High 4.0-11.0 [facility] Comment on above: Performed By: #### 1 5205-8, CBC, 1987-12, 3016-3, 38753-3, 15899-4, 90116-5 #### [facility] ([id number]) [address] [facility], [address] [place] [address] CRP [Mass/Vol]on 05-04-2024 C REACTIVE PROTEIN 0.3 mg/dL Normal 0.000-0.7 4 4 [facility] Comment on above: Performed By: #### 1 5205-8, CBC, 1987-12, 3015-3, 02636-7, 49646-7, 25180-9 #### [facility] ([id number]) [address], [address] [place] [address] ESR Photometric method (Bld) [Velocity]on 05-04-2024 ESR, ERYTHROCYTE SEDIMENTATION RATE 6 mm/h Normal 0-30 [facility] Comment on above: Performed By: #### 1 5205-8, CBC, 1987-12, 3015-3, 32683-0, 48346-6, 79143-7 ####[facility] ([id number])[address] [facility], [address] [place] [address] Nuclear Ab IA Ql (S)on 05-04 JAIME Screen w/reflex Negative Normal NEG [facility] Comment on above: Result Comment: Testing performed using multiplex flow immunoassay. Eleven different antigens associated with systemic autoimmune diseases (dsDNA,Sm,Sm/TUBE REPAIRER,TUBE REPAIRER,Chromatin, SSA,SSB,Yolanda-1,Scl70,Ribo P,Centromere B) are included in this screening test. Performed By: #### 1 5205-8, CBC, 1987-12, 301-3, 39104-9, 97090-4, 90623-3 ####[facility] ([id number])[address], [address] [place] [address] Rheumatoid factor Nephelomet ry Qn (S)on 05-04-2024 RHEUMATOID FACTOR 22 IU/mL High <20 [facility] Comment on above: Performed By: #### 1 5205-8, CBC, 1987-, 3016-3, 88929-5, 38288-0, 44619-5 #### [facility] ([id number]) [address], [address] [place] [address] TSH Qnon 05-04-2024 TSH 1.48 uIU/mL Normal 0.49-4.67 [facility] Comment on above: Performed By: #### 1 5205-8, CBC, 1987-, 3016-3, 28875-5, 46583-2, 61825-2 ####[facility] ([id number])[address], [address] [place] [address] MR KNEE LT WO CONTon 024 MR [...] on 03/31/2024 10:49 AM Normal [facility] BASIC METABOLIC PANLon 02-25 Anion gap [Moles/Vol] 10 mmol/L Normal 5-15 [facility] Comment on above: Performed By: #### C BCA, BMP #### [facility] ([id number]) [address], [address] [place] [address] Calcium [Mass/Vol] 10.1 mg/dL Normal 8.5-10.5 [facility] Comment on above: Performed By: #### C BCA, BMP #### [facility] ([id number]) [address], [address] [place] [address] Chloride [Moles/Vol] 102 mmol/L Normal 98-109 [facility] Comment on above: Performed By: #### C BCA, BMP #### [facility] ([id number]) [address], [address] [place] [address] CO2 [Moles/Vol] 28 mmol/L Normal 22-32 [facility] Comment on above: Performed By: #### C BCA, BMP #### [facility] ([id number]) [address] [place] [address] Creatinine [Mass/Vol] 0.83 mg/dL Normal 0.40-1.00 [facility] Comment on above: Result Comment: METH OD TRACEABLE TO IDMS STANDARD Performed By: #### C BCA, BMP #### [facility] ([id number]) [address] [place] [address] GFR/1.73 sq M.predicted among non-blacks MDRD (S/P/Bld) [Vol rate/Area] 84 mL/min/{1.73_m2} Normal >59 [facility] Comment on above: Result Comment: Reported eGFR is based on the CKD-EPI 2020 equation that does not use a race coefficient. Performed By: #### C BCA, BMP #### [facility] ([id number]) [address] [place] [address] Glucose [Mass/Vol] 82 mg/dL Normal 65-99 [facility] [facility] Comment on above: Performed By: #### C BCA, BMP #### [facility] ([id number]) [address] [place] [address] Potassium [Moles/Vol] 4.1 mmol/L Normal 3.5-5.0 [facility] Comment on above: Performed By: #### C BCA, BMP #### [facility] ([id number]) [address] [place] [address] Sodium [Moles/Vol] 140 mmol/L Normal 134-146 [facility] Comment on above: Performed By: #### C BCA, BMP #### [facility] ([id number]) [address] [place] [address] Urea nitrogen [Mass/Vol] 7 mg/dL Normal 5-23 [facility] Comment on above: Performed By: #### C BCA, BMP #### [facility] ([id number]) [address] [place] [address] CBC AND AUTO DIFFon 02-26-20 24 ABSOLUTE BASOPHIL 0.2 X10E9/L Normal 0.0-0.2 [facility] Comment on above: Performed By: #### Veronica WASHINGTON, BMP #### [facility] ([id number]) [address], [facility] [address] [place] [address] Basophils/100 WBC (Bld) 1.0 % Normal [facility] Comment on above: Performed By: #### C FELIX, BMP #### [facility] ([id number]) [address], [facility] [address] [place] [address] Erythrocyte distribution width (RBC) [Ratio] 15.5 % High 11.5-15.0 [facility] Comment on above: Performed By: #### Veronica WASHINGTON, BMP #### [facility] ([id number]) [address], [address] [place] [address] Hematocrit (Bld) [Volume fraction] 42.7 % Normal 35-47 [facility] Comment on above: Performed By: #### Veronica WASHINGTON, BMP #### [facility] ([id number]) [address] [place] [address] Hemoglobin (Bld) [Mass/Vol] 14.5 g/dL Normal 11.7-15.5 [facility] Comment on above: Performed By: #### Veronica WASHINGTON, BMP #### [facility] ([id number]) [address] [place] [address] Lymphocytes (Bld) [#/Vol] 3.3 10*3/uL Normal 1.0-3.5 [facility] Comment on above: Performed By: #### Veronica WASHINGTON, BMP #### [facility] ([id number]) [address] [facility] [address] [place] [address] Lymphocytes/100 WBC (Bld) 19.0 % Normal [facility] Comment on above: Performed By: #### C FELIX, BMP #### [facility] ([id number]) [address] [place] [address] MCH (RBC) [Entitic mass] 33.0 pg Normal 27-34 [facility] Comment on above: Performed By: #### C FELIX, BMP #### [facility] ([id number]) [address], [address] [place] [address] MCHC (RBC) [Mass/Vol] 34.0 g/dL Normal 32-36 [facility] Comment on above: Performed By: #### C FELIX, BMP #### [facility] ([id number]) [address] [place] [address] MCV (RBC) [Entitic vol] 97 fL Normal 80-[address] [facility] Comment on above: Performed By: #### Veronica WASHINGTON, BMP #### [facility] ([id number]) [address] [place] [address] Monocytes (Bld) [#/Vol] 0.7 10*3/uL Normal 0-0.9 [facility] Comment on above: Performed By: #### C FELIX, BMP #### [facility] ([id number]) [address] [place] [address] Monocytes/100 WBC (Bld) 4.0 % Normal [facility] Comment on above: Performed By: #### C FELIX, BMP #### [facility] ([id number]) [address], [address] [place] [address] Neutrophils (Bld) [#/Vol] 13.4 10*3/uL High 1.5-6.6 [facility] Comment on above: Performed By: #### C FELIX, BMP #### [facility] ([id number]) [address], [address] [place] [address] Platelet mean volume (Bld) [Entitic vol] 9.1 fL Normal 7-12 [facility] Comment on above: Performed By: #### Veronica WASHINGTON, BMP #### [facility] ([id number]) [address], [address] [place] [address] Platelets (Bld) [#/Vol] 198 10*3/uL Normal 150-450 [facility] Comment on above: Performed By: #### Veronica WASHINGTON, BMP #### [facility] ([id number]) [address], [facility] [address] [place] [address] RBC COUNT 4.40 X10E12/L Normal 3.80-5.20 [facility] Comment on above: Performed By: #### Veronica WASHINGTON, BMP #### [facility] ([id number]) [address], [address] [place] [address] RBC morphology finding Nom (Bld) NORMAL Normal [facility] Comment on above: Performed By: #### Veronica WASHINGTON, BMP #### [facility] ([id number]) [address], [address] [place] [address] SEG NEUTROPHIL 76.0 % Normal [facility] Comment on above: Performed By: #### Veronica WASHINGTON, BMP #### [facility] ([id number]) [address], [address] [place] [address] WBC (Bld) [#/Vol] 17.6 10*3/uL High 4.0-11.0 [facility] Comment on above: Performed By: #### Veronica WASHINGTON, BMP #### [facility] ([id number]) [address] [place] [address] XR KNEE LT 3 VWSon 4 XR [...] on 01/31/2024 6:38 PM Normal [facility] MR ELBOW LT WO CONTon 2023 MR ELBOW LT WO CONT MR ELBOW LT WO CONT History: Pain. Lesion of the ulnar nerve. Pain. Numbness tingling prior ulnar nerve release MRI Left Elbow Comparison: None Technique: Multiplaner/multisequenc e images were obtained without contrast. Findings: No [...] on 01/27/2024 11:30 AM Normal [facility] CT ABDOMEN AND PELVIS W CONT [...] on 01/24/2024 6:29 AM Normal [facility] CREATININEon 01-20-2024 Creatinine [Mass/Vol] 0.94 mg/dL Normal 0.40-1.00 [facility] Comment on above: Result Comment: METH OD TRACEABLE TO IDMS STANDARD Performed By: #### C RT #### [facility] ([id number]) [address] [place] [address] [address] [place] [address] GFR/1.73 sq M.predicted among non-blacks MDRD (S/P/Bld) [Vol rate/Area] 73 mL/min/{1.73_m2} Normal >59 [facility] Comment on above: Result Comment: Reported eGFR is based on the CKD-EPI 2020 equation that does not use a race coefficient. Performed By: #### C RT #### [facility] ([id number]) [address] [place] [address], [facility] [address] [place] [address] CHEMISTRYOrdered By: Lab ROP User on 12-11-2023 Glucose [Mass/Vol] 154 mg/dL High 55 - 99 mg/dL [facility] POC Subsection POC Device SN [id number] 1 Invalid Interpretation Code [facility] POC Subsection POC User ID [id number] 1 Invalid Interpretation Code [facility] POC Subsection POC Username ELEANOR FREDIS Invalid Interpretation Code [facility] POC Subsection Surgical PathologyOrdered By : Felicita Carpenter on 01-17-2023 [facility] XR KNEE LT 4V or >on 023 [...] by: LILIANA NDIAYE Date: 2022-11-29 16:44 Normal [facility] CHEMISTRYOrdered By: Lab ROP User on 11-21-2022 Glucose [Mass/Vol] 91 mg/dL Normal 55 - 99 mg/dL [facility] POC Subsection Comment on above: Result Comment: Dahlia sneha Meter POC Device SN [id number] Invalid Interpretation Code [facility] POC Subsection POC User ID [id number] Invalid Interpretation Code [facility] POC Subsection POC Username [email or web address] Invalid Interpretation Code [facility] POC Subsection CHEMISTRYOrdered By: SYSTEM SYSTEM on 10-20-2022 Anion gap [Moles/Vol] 13 mmol/L Normal 6 - 16 mEq/L [facility] Calcium [Mass/Vol] 9.5 mg/dL Normal 8.9 - 11. 1 mg/dL [facility] Chloride [Moles/Vol] 99 mmol/L Low 101 - 1 11 mmol/L [facility] CO2 [Moles/Vol] 26 mmol/L Normal 21 - 31 mmol/L [facility] Creatinine [Mass/Vol] 1.1 mg/dL Normal 0.5 - 1.3 mg/dL [facility] GFR/1.73 sq M.predicted among blacks MDRD (S/P/Bld) [Vol rate/Area] mL/min/1.73 m2 Normal >=59mL/min /1.73 m2 [facility] Chem S GFR/1.73 sq M.predicted among non-blacks MDRD (S/P/Bld) [Vol rate/Area] 52 mL/min/1.73 m2 Low >=59mL/min /1.73 m2 [facility] Chem S Glucose [Mass/Vol] 127 mg/dL Normal [...] Normal 0.0 - 2.0 % [facility] HemeAutoSS Basophils/Leukocytes Auto (Bld) [Pure # fraction] 0.1 E9/L Normal 0.0 - 0.2 E9/L [facility] HemeAutoSS Eosinophils/100 WBC (Bld) 0.4 % Normal 0.0 - 8.0 % [facility] HemeAutoSS Eosinophils/Leukocytes Auto (Bld) [Pure # fraction] 0.0 E9/L Normal 0.0 - 0.5 E9/L [facility] HemeAutoSS Lymphocytes/100 WBC (Bld) 32.6 % Normal 14.0 - 50.0 % [facility] HemeAutoSS Lymphocytes/Leukocytes Auto (Bld) [Pure # fraction] 3.9 E9/L Normal 1.0 - 4.0 E9/L [facility] HemeAutoSS Monocytes/100 WBC (Bld) 4.8 % Normal 4.0 - 14.0 % [facility] HemeAutoSS Monocytes/Leukocytes Auto (Bld) [Pure # fraction] 0.6 E9/L Normal 0.2 - 1.0 E9/L [facility]eAutoSS Neutrophils/100 WBC (Bld) 61.2 % Normal 36.0 - 75.0 % [facility] HemeAutoSS Neutrophils/Leukocytes Auto (Bld) [Pure # fraction] 7.4 E9/L [...] MCH (RBC) [Entitic mass] 27.6 pg Normal 27. 0 - 34.0 pg [facility] HemeAutoSS MCHC (RBC) [Mass/Vol] 32.1 g/dL Normal 31.4 - 36.0 gm/dL [facility]Auto[facility] MCV (RBC) [Entitic vol] 86.0 fL Normal 80.0 - 100.0 fL [facility]Auto[facility] Platelet mean volume (Bld) [Entitic vol] 7.9 fL Normal 6.4 - 10.8 fL [facility]eAuto[facility] Platelets (Bld) [#/Vol] 249.0 E9/L Normal 150. 0 - 500.0 E9/L [facility]Auto[facility] RBC (Bld) [...] sed) [#/Area] /[HPF] Normal 0-2/HPF [facility] UA Aut o SS Glucose Test strip (U) [Mass/Vol] Negative (10/20/22 11:40 AM) Normal Negative [facility] UA Auto SS Hemoglobin Ql (U) Negative (10/20/22 11:40 AM) Normal Negative [facility] UA Auto SS Ketones (U) [Mass/Vol] Negative (10/20/22 11:40 AM) Normal Negative [facility] UA Auto SS [place].plasma/[place].R BC (Bld) [Mass ratio] 0-3 /HPF Normal 0-3/HPF [facility] UA Au to SS Nitrite Ql (U) Negative (10/20/22 11:40 AM) Normal Negative [facility] UA Auto SS pH (U) 6.0 *NA* (10/20/22 11:40 AM) Invalid Interpretation Code 5.0 - 9.0 [facility] UA Auto SS Protein (U) [Mass/Vol] Negative (10/20/22 11:40 AM) Normal Negative [facility] UA Auto SS Specific gravity (U) [Rel density] <=1.005 *NA* (10/20/22 11:40 AM) Invalid Interpretation Code 1.005 - 1.030 [facility] Auto SS UA Spec Desc Clean Catch (10/20/22 11:40 AM) Normal [facility] UA Auto SS Urobilinogen Qn (U) 0.1058671 {Gareth'U}/dL Normal 0.0 - 1.0 EU/dL [facility] Auto SS WBC Auto Ql (U) 1+ *ABN* (10/20/22 11:40 AM) Invalid Interpretation Code Negative [facility] UA Auto SS WBC LM.HPF (Urine sed) [#/Area] 0-5 /HPF Normal 0-5/HPF [facility] UA Auto SS MG MAMM DIAGNOSTIC 3D TAJ CA Don 09-10-2022 MG MAMM DIAGNOSTIC 3D TAJ CAD Patient: ROCK HERRERA Exam Date: 09/10/2022 : 1970 Gender:F Ordering : DR DAVID VILLALOBOS . Admission #: [id number] Family : Order #: [id number] CLICK HERE TO VIEW EXAM RADIOLOGY REPORT [...] ovarian cancer at age 60. LOCATION: [facility] BREAST COMPOSITION: Heterogeneously dense,which may obscure small [...] M.D. on 09/10/2022 at 13:54 Normal [facility] US BREAST LEFT LIMITEDon US BREAST LEFT LIMITED Patient: ROCK HERRERA Exam Date: 09/10/2022 : 1970 Gender:F Ordering : DR DAVID VILLALOBOS . Admission #: [id number] Family : Order #: [id number] CLICK HERE TO VIEW EXAM RADIOLOGY REPORT [...] ovarian cancer at age 60. LOCATION: [facility] BREAST COMPOSITION: Heterogeneously dense,which may obscure small [...] Roach M.D. on 09/10/2022 at 13:54 Normal [facility] XR DEXA BONE DENSITYon 08-06 XR DEXA BONE DENSITY EXAMINATION: XR DEX A BONE DENSITY, 08/06/2022 1:26 PM EST HISTORY: [...] DELORES ROACH Date: 2022-08-06 14:11 Normal [facility] XR CHEST 2 Von 07-04-2022 XR CHEST [...] NICOLE ROJAS Date: 2022-07-04 14:11 Normal [facility] XR KNEE RT 4V or >on 022 [...] NICOLE ROJAS Date: 2022-07-03 18:12 Normal [facility] CBC AUTO DIFFon 04-30-2022 BASO # 0.1 103/ul Normal 0.0-0.1 [facility] Comment on above: Performed By: #### C BC ####[facility] [address] [place] [address]Dr. Soo William Basophils/100 WBC (Bld) 0.7 % Normal 0.2-2.0 [facility] Comment on above: Performed By: #### C BC ####[facility] [address] [place] [address]Dr. Soo William EO # 0.1 103/ul Normal 0.0-0.7 [facility] Comment on above: Performed By: #### C BC ####[facility] [address] [place] [id number]. Soo William Eosinophils/100 WBC (Bld) 0.4 % Critically low 0.9-7.0 [facility] Comment on above: Performed By: #### C BC ####[facility] [address] [place] [id number]. Soo William Erythrocyte distribution width (RBC) [Ratio] 15.1 % Critically high 11.0-15.0 [facility] Comment on above: Performed By: #### C BC ####[facility] [address] [place] [id number] William Hematocrit (Bld) [Volume fraction] 43.4 % Normal 36.0-48.0 [facility] Comment on above: Performed By: #### C BC ####[facility] [address] [place] [id number]. Soo William Hemoglobin (Bld) [Mass/Vol] 14.4 g/dL Normal 12.0-16.0 [facility] Comment on above: Performed By: #### C BC ####[facility] [address] [place] [id number]. Ileneleah Brandon IG # 0.06 10e3/ul Critically high 0.00-0.03 [facility] Comment on above: Performed By: #### C BC ####[facility] [address] [place] [address]DrDanica William IG % 0.4 % Normal 0.0-0.5 [facility] Comment on above: Performed By: #### C BC ####[facility] [address] [place] [address]DrDanica William LYMPH # 5.4 103/ul Critically high 1.2-3.8 [facility] Comment on above: Performed By: #### C BC ####[facility] Xjtmuxsqon24[address] [place] [address]DrDanica William Lymphocytes/100 WBC (Bld) 36.6 % Normal 20.5-60.0 [facility] Comment on above: Performed By: #### C BC ####[facility] [address] [place] [address]DrDanica William MANUAL DIFF REQ NO Normal [facility] Comment on above: Performed By: #### C BC ####[facility] Ttoriuodsy[address] [place] [id number]. Soo William MCH (RBC) [Entitic mass] 29.4 pg Normal 26.7-34.0 [facility] Comment on above: Performed By: #### C BC ####[facility] [address]ch[address] [place] [id number] Ileneleah William MCHC (RBC) [Mass/Vol] 33.2 g/dL Normal 29.9-35.2 [facility] Comment on above: Performed By: #### C BC ####[facility] [address] [place] [id number] William MCV (RBC) [Entitic vol] 88.6 fL Normal 81.0-99.0 [facility] Comment on above: Performed By: #### C BC ####[facility] [address]ionfidc[address] [place] [id number]. Soo William MONO # 0.9 103/ul Critically high 0.3-0.8 [facility] Comment on above: Performed By: #### C BC ####[facility] [address]vb[address] [place] [id number]. Soo William Monocytes/100 WBC (Bld) 6.4 % Normal 1.7-12.0 [facility] Comment on above: Performed By: #### C BC ####[facility] Set[address]zbnen[address] [place] [id number]. Soo William NEUT # 8.1 103/ul Critically high 1.4-6.5 [facility] Comment on above: Performed By: #### C BC ####[facility] [address] [place] [address]Dr. Soo William Neutrophils/100 WBC (Bld) 55.5 % Normal 43.0-75.0 [facility] Comment on above: Performed By: #### C BC ####[facility] [address] [place] [address]Dr. Soo William Platelet mean volume (Bld) [Entitic vol] 9.9 fL Normal 9.5-13.5 [facility] Comment on above: Performed By: #### C BC ####[facility] [address] [place] [id number]. Soo William PLT 326 103/ul Normal 150-450 [facility] Comment on above: Performed By: #### C BC ####[facility] [address]isfax[address] [place] [id number]. Soo William RBC 4.90 106/ul Normal 4.20-5.40 [facility] Comment on above: Performed By: #### C BC ####[facility] [address]ej[address] [place] [id number]. Soo William WBC 14.6 103/ul Critically high 4.0-11.0 [facility] Comment on above: Performed By: #### C BC ####[facility] [address]ugdry[address] [place] [address]Dr. Soo William PROF CHEM 8 (BAS METB)on Anion gap [Moles/Vol] 12.9 mmol/L Normal Th [facility] Comment on above: Performed By: #### B MP ####[facility] [address]kt[address] [place] [address]Dr. Soo William Calcium [Mass/Vol] 9.5 mg/dL Normal 8.5-10.1 [facility] Comment on above: Performed By: #### B MP ####[facility] [address]nx[address] [place] [address]Dr. Soo William Chloride [Moles/Vol] 101 mmol/L Normal 98-107 [facility] Comment on above: Performed By: #### B MP ####[facility] Sp[address]ullkhk[address] [place] [address]Dr. Soo William CO2 [Moles/Vol] 26.6 mmol/L Normal 21.0-32.0 [facility] Comment on above: Performed By: #### B MP ####[facility] [address] [place], [place] [address]Dr. Soo William Creatinine [Mass/Vol] 1.11 mg/dL Critically high 0.55-1.02 [facility] Comment on above: Performed By: #### B MP ####[facility] [address] [place] [address]Dr. Soo William EGFR-AF PARAGUAYAN >60 Normal >=60 [facility] Comment on above: Performed By: #### B MP ####[facility] [address]bm[address] [place] [id number]. Soo William EGFR-NON AF PARAGUAYAN 52 mL/min/1.73m2 Critically low >=60 [facility] Comment on above: Performed By: #### B MP ####[facility] [address] [place] [address]DrDanica William Glucose [Mass/Vol] 145 mg/dL Critically high 74-106 [facility] Comment on above: Performed By: #### B MP ####[facility] [address]wt[address] [place] [address]Dr. Soo William Potassium [Moles/Vol] 3.5 mmol/L Normal 3.5-5.1 [facility] Comment on above: Performed By: #### B MP ####[facility] [address] [place] [address]Dr. Soo William Sodium [Moles/Vol] 137 mmol/L Normal 136-145 [facility] Comment on above: Performed By: #### B MP ####[facility] [address] [place] [address]Dr. Soo William Urea nitrogen [Mass/Vol] 2.0 mg/dL Critically low 7.0-18. 0 [facility] Comment on above: Performed By: #### B MP ####[facility] [address]so[address] [place] [address]Dr. Soo William Urea nitrogen/Creatinine [Mass ratio] 1.8 mg/mg Normal [facility] Comment on above: Performed By: #### B MP ####[facility] [address] [place], [place] [address]Dr. Soo William TROPONIN, HIGH SENSITIVITYon 04-30-2022 HSTROP 5.1 pg/mL Normal 4.0-51.3 [facility] Comment on above: Result Comment: CUT- OFF POINTS HAVE BEEN ESTABLISHED BASED ON THE FOURTH UNIVERSAL DEFINITIONS OF MYOCARDIAL INFARCTION. THE UPPER REFERENCE LIMIT (URL) OF TROPONIN, DEFINED THE 99TH PERCENTILE OF cTnI DISTRIBUTION IN A REFERENCE POPULATION, HAS BEEN CONFIRMED THE DECISION THRESHOLD FOR [place] DIAGNOSIS. Performed By: #### H STROPN ####[facility] [address] [place], [place] [address]Dr. Soo William HSTROP 4.6 pg/mL Normal 4.0-51.3 [facility] Comment on above: Result Comment: CUT- OFF POINTS HAVE BEEN ESTABLISHED BASED ON THE FOURTH UNIVERSAL DEFINITIONS OF MYOCARDIAL INFARCTION. THE UPPER REFERENCE LIMIT (URL) OF TROPONIN, DEFINED THE 99TH PERCENTILE OF cTnI DISTRIBUTION IN A REFERENCE POPULATION, HAS BEEN CONFIRMED THE DECISION THRESHOLD FOR [place] DIAGNOSIS. Performed By: #### H STROPN ####[facility] [address] [place], [place] [address]Cb. Soo William MRI LSPINE WO CONon 04-06-20 22 MRI [...] or foraminal stenosis Electronically authenticated by: MAMIE COOMBS Date: 2022-04-06 18:18 Normal [facility] MRI KNEE RT WO CONon 022 [...] inferior articular surface Electronically authenticated by: MAMIE COOMBS Date: 2022-03-28 11:40 Normal [facility] MRI SHOULDER RT WO CONon MRI [...] suggest impingement syndrome Electronically authenticated by: MAMIE COOMBS Date: 2022-03-28 09:09 Normal [facility] ER URINE PROFILEon 2 Bilirubin Ql (U) Negative Normal NEGATIVE [facility] Comment on above: Performed By: #### E RUR #### [facility] [address] [place] [address] Dr. Soo William Clarity (U) CLEAR Normal CLEAR [facility] Comment on above: Performed By: #### E RUR #### [facility] [address] [place] [address] Dr. Soo William Color (U) LT. YELLOW Normal YELLOW [facility] Comment on above: Performed By: #### E RUR #### [facility] [address] [place] [address] Dr. Soo William ERUANU A micrscopic examina tion will be performed if indicated. Normal [facility] Comment on above: Performed By: #### E RUR #### [facility] [address] [place] [address] Dr. Soo William Glucose Ql (U) Negative Normal NEGATIVE [facility] Comment on above: Performed By: #### E RUR #### [facility] [address] [place] [address] Dr. Soo William Hemoglobin Ql (U) Negative Normal NEGATIVE [facility] Comment on above: Performed By: #### E RUR #### [facility] [address] [place] [address] Dr. Soo William Ketones Ql (U) Negative Normal NEGATIVE [facility] Comment on above: Performed By: #### E RUR #### [facility] [address] [place] [address] Dr. Soo William LEUKOCYTES Negative Normal NEGATIVE [facility] Comment on above: Performed By: #### E RUR #### [facility] [address] [place] [address] Dr. Soo William Nitrite Ql (U) Negative Normal NEGATIVE [facility] Comment on above: Performed By: #### E RUR #### [facility] [facility] [address] [place] [address] Dr. Soo William pH (U) 5.5 [pH] Normal 5-9 [facility] Comment on above: Performed By: #### E RUR #### [facility] [address] [place] [address] Dr. Soo William SPEC GRAVITY <=1.005 Abnormal 1.005-<=1. 025 [facility] Comment on above: Performed By: #### E RUR #### [facility] [address] [place] [address] Dr. Soo William UA PROTEIN Negative Normal NEGATIVE/ TRACE [facility] Comment on above: Performed By: #### E RUR #### [facility] [address] [place] [address] Dr. Soo William UR MICRO IND NOT INDICATED Normal [facility] Comment on above: Performed By: #### E RUR #### [facility] [address] [place] [address] Dr. Soo William Urobilinogen Qn (U) 0.2 {Gareth'U}/dL Normal 0.2 - 1. 0 [facility] Comment on above: Performed By: #### E RUR #### [facility] [address] [place] [address] Dr. Soo William COMPREHENSIVE METABOLIC PANE Bulmaro 02-22-2022 Albumin [Mass/Vol] 4.2 g/dL Normal 3.6-5.1 [facility] Comment on above: Performed By: #### 7 129, 61077, 496 #### [facility] [address], [address] [place] [address] Integration Consultant: Arjun Ramos MD Albumin/Globulin [Mass ratio] 1.8 {ratio} Normal 1.0-2.5 [facility] Comment on above: Performed By: #### 7 600, 13702, 496 #### [facility] of [address], [address] [place] [address] Integration Consultant: Arjun Ramos MD ALP [Catalytic activity/Vol] 143 U/L Normal 37-153 [facility] Comment on above: Performed By: #### 7 600, 26387, 496 #### [facility] of [place] [address] Integration Consultant: Arjun Ramos MD ALT [Catalytic activity/Vol] 18 U/L Normal 6-29 [facility] Comment on above: Performed By: #### 7 600, 63413, 496 #### [facility] of [place] [address] Integration Consultant: Arjun Ramos MD AST [Catalytic activity/Vol] 14 U/L Normal 10-35 [facility] Comment on above: Performed By: #### 7 600, 85463, 496 #### [facility] of [place] [address] Integration Consultant: Arjun Ramos MD Bilirubin [Mass/Vol] 0.5 mg/dL Normal 0.2-1.2 [facility] Comment on above: Performed By: #### 7 600, 73098, 496 #### [facility] of [place] [address] Integration Consultant: Arjun Ramos MD Calcium [Mass/Vol] 10.0 mg/dL Normal 8.6-10.4 [facility] Comment on above: Performed By: #### 7 600, 81700, 496 #### [facility] of [place] [address] Integration Consultant: Arjun Ramos MD Chloride [Moles/Vol] 100 mmol/L Normal 98-110 [facility] Comment on above: Performed By: #### 7 600, 72590, 496 #### [facility] of [place] [address] Integration Consultant: Arjun Ramos MD CO2 [Moles/Vol] 29 mmol/L Normal 20-32 [facility] Comment on above: Performed By: #### 7 600, 27352, 496 #### [facility] [place] [address] Integration Consultant: Arjun Ramos MD Creatinine [Mass/Vol] 0.86 mg/dL Normal 0.50-1.[address] [facility] Comment on above: Result Comment: For patients >49 years of age, the reference limit for Creatinine is approximately 13% higher for people identified as -Ecuadorean. Performed By: #### 7 600, 71364, 496 #### [facility] [place] [address] Integration Consultant: Arjun Ramos MD eGFR NON-AFR. PARAGUAYAN 78 mL/min/1.73m2 Normal > OR = 60 [facility] Comment on above: Performed By: #### 7 600, 36893, 496 #### [facility] [place] [address] Integration Consultant: Arjun Ramos MD GFR/1.73 sq M.predicted among blacks MDRD (S/P/Bld) [Vol rate/Area] 91 mL/min/{1.73_m2} Normal > OR = 60 [facility] Comment on above: Performed By: #### 7 600, 97067, 496 #### [facility] [place] [address] Integration Consultant: Arjun Ramos MD Globulin (S) [Mass/Vol] 2.4 g/dL Normal 1.9-3.7 [facility] Comment on above: Performed By: #### 7 600, 96585, 496 #### [facility] [place] [address] Integration Consultant: Arjun Ramos MD Glucose [Mass/Vol] 125 mg/dL Normal 65-139 [facility] Comment on above: Result Comment: Non-fasting reference interval For someone without known diabetes, a glucose value between 100 and 125 mg/dL is consistent with prediabetes and should be confirmed with a follow-up test. Performed By: #### 7 600, 90692, 496 #### [facility] [place] [address] Integration Consultant: Arjun Ramos MD Potassium [Moles/Vol] 3.6 mmol/L Normal 3.5-5.3 [facility] Comment on above: Performed By: #### 7 600, 04822, 496 #### [facility] [place] [address] Integration Consultant: Arjun Ramos MD Protein [Mass/Vol] 6.6 g/dL Normal 6.1-8.1 [facility] Comment on above: Performed By: #### 7 600, 34956, 496 #### [facility] [place] [address] Integration Consultant: Arjun Ramos MD Sodium [Moles/Vol] 139 mmol/L Normal 135-146 [facility] Comment on above: Performed By: #### 7 600, 08403, 496 #### [facility] [place] [address] Integration Consultant: Arjun Ramos MD Urea nitrogen [Mass/Vol] 4 mg/dL Low 7-25 [facility] Comment on above: Performed By: #### 7 600, 35466, 496 #### [facility] [place] [address] Integration Consultant: Arjun Ramos MD Urea nitrogen/Creatinine [Mass ratio] 5 mg/mg Low 6-22 [facility] Comment on above: Performed By: #### 7 600, 81738, 496 #### [facility] [place] [address] Integration Consultant: Arjun Ramos MD HEMOGLOBIN A1con 02-22-2022 HEMOGLOBIN [...] diagnosis of diabetes in children. According to [place] Diabetes Association (ADA) guidelines, hemoglobin A1c <7.0% represents optimal control in non- diabetic patients. Different metrics may apply to specific patient populations. Standards of Medical Care in Diabetes(ADA). Performed By: #### 7 600, 84187, 496 #### [facility] [address], [address] [place] [address] Integration Consultant: Arjun Ramos MD LIPID PANEL, [facility] Cholesterol [Mass/Vol] 187 mg/dL Normal <200 [facility] Comment on above: Order Comment: FASTI NG:NO FASTING: NO Performed By: #### 7 600, 19247, 496 #### [facility] [address], [address] [place] [address] Integration Consultant: Arjun Ramos MD Cholesterol in HDL [Mass/Vol] 43 mg/dL Low > OR = 50 [facility] Comment on above: Order Comment: FASTI NG:NO FASTING: NO Performed By: #### 7 600, 44048, 496 #### [facility] [address], [address] [place] [address] Integration Consultant: Arjun Ramos MD Cholesterol.total/Choles terol in HDL [Mass ratio] 4.3 {ratio} Normal <5.0 [facility] Comment on above: Order Comment: FASTI NG:NO FASTING: NO Performed By: #### 7 600, 21959, 496 #### [facility] [place] [address] Integration Consultant: Arjun Ramos MD LDL-CHOLESTEROL Normal [facility] [...] LDL-C. Lan MARTÍNEZ et al. KELLY. 2013;310(19): 1285-3322 (http://education.[employer].Certalia/faq/LCF687) Performed By: #### 7 600, 03943, 496 #### [facility] [address], [address] [place] [address] Integration Consultant: Arjun Ramos MD NON HDL CHOLESTEROL 144 mg/dL (calc) High <130 [facility] Comment on above: Order Comment: FASTI NG:NO FASTING: NO Result Comment: For patients with diabetes plus 1 major ASCVD risk factor, treating to a non-HDL-C goal of <100 mg/dL (LDL-C of <70 mg/dL) is considered a therapeutic option. Performed By: #### 7 600, 47530, 496 #### [facility] [address], [address] [place] [address] Integration Consultant: Arjun Ramos MD Triglyceride [Mass/Vol] 425 mg/dL High <150 [facility] Comment on above: Order Comment: FASTI NG:NO FASTING: NO Result Comment: If a non-fasting specimen was collected, consider repeat triglyceride testing on a fasting specimen if clinically indicated. Heber et al. J. of Clin. Lipidol. 2015;9:129-169. Performed By: #### 7 600, 63422, 496 #### [facility] [address], [address] [place] [address] Integration Consultant: Arjun Ramos MD HEMOGLOBIN A1con 11-14-2021 HEMOGLOBIN [...] #### 7 600, 496 #### [facility] [address], [address] [place] [address] Integration Consultant: Arjun Ramos MD LIPID PANEL, [facility] 10-18 Cholesterol [Mass/Vol] 184 mg/dL Normal <200 [facility] Comment on above: Order Comment: FASTI NG:YES FASTING: YES Performed By: #### 7 600, 496 #### [facility] [address], [address] [place] [address] Integration Consultant: Arjun Ramos MD Cholesterol in HDL [Mass/Vol] 32 mg/dL Low > OR = 50 [facility] Comment on above: Order Comment: FASTI NG:YES FASTING: YES Performed By: #### 7 600, 496 #### [facility] [address], [address] [place] [address] Integration Consultant: Arjun Ramos MD Cholesterol.total/Choles terol in HDL [Mass ratio] 5.8 {ratio} High <5.0 [facility] Comment on above: Order Comment: FASTI NG:YES FASTING: YES Performed By: #### 7 600, 496 #### [facility] [address], [address] [place] [address] Integration Consultant: Arjun Ramos MD LDL-CHOLESTEROL Normal [facility] [...] LDL-C. Lan MARTÍNEZ et al. KELLY. 2013;310(19): 2879-7911 (http://education.[employer]/faq/QTB654) Performed By: #### 7 600, 496 #### [facility] [address], [address] [place] [address] Integration Consultant: Arjun Ramos MD NON HDL CHOLESTEROL 152 mg/dL (calc) High <130 [facility] Comment on above: Order Comment: FASTI NG:YES FASTING: YES Result Comment: For patients with diabetes plus 1 major ASCVD risk factor, treating to a non-HDL-C goal of <100 mg/dL (LDL-C of <70 mg/dL) is considered a therapeutic option. Performed By: #### 7 600, 496 #### [facility] [address], [address] [place], [place] [id number] Integration Consultant: Arjun Ramos MD Triglyceride [Mass/Vol] 531 mg/dL High <150 [facility] Comment on above: Order Comment: FASTI [...] #### 7 600, 496 #### [facility] [address], [address] [place] [address] Integration Consultant: Arjun Ramos MD CNOVon 06-27-2021 CNOV Office Visit (OTOLCC ) -------- ROCK HERRERA ([id number]) 1970 F Date Time Provider Department 06/27/21 2:00 PM CRYSTAL RODRIGUEZ [facility] During your visit today, we recorded the following information about you: Temperature Pulse 97.3 degrees 82/minute Crystal Rodriguez PA-C 06/27/2021 4:56 PM Signed [facility] NOTE CC: Rock Herrera is a [...] bipolar - COPD (chronic obstructive pulmonary disease) ([facility]) - Depression - Ana Laura-Danlos disease [...] mg ta (more content not included)... Normal [facility] CNOVon 04-19-2021 CNOV Office Visit (MELVINORRM ) -------- SHARONROCK Carmina ([id number]) 1970 F Date Time Provider Department 04/19/21 [...] - Fully Assessed Reason for Visit: New [055037] Fracture [4131] Primary Visit Diagnosis:Other closed nondisplaced fracture of proximal end of left humerus, initial encounter [S42.295A] Other Visit Diagnosis:Right elbow pain [M25.521] Order(s):XR ELBOW SPECIAL VIEWS AP/LAT/OTHER RT [4423395] Order #: [id number] FUTURE CONSULT TO LOG HAUL OPERATOR [614582] Order #: [id number]: 1 FUTURE Prescriptions as of 04/19/2021 - [...] of att (more content not included)... Normal [facility] XR ELBOW 3V AP/LAT/OTHER RTo n [...] NO ACUTE OSSEOUS ABNORMALITY OTHER FINDINGS DESCRIBED Retail Store Manager: [facility] Transcribe Date/Time: Apr 19 2021 2:38P Dictated by : CAROL ROCHE MD This examination was interpreted and the report reviewed and electronically signed by: CAROL ROCHE MD on Apr 19 2021 2:39PM EST [id number] Normal [facility] XR Elbow - right AP and Late ral and obliqueon 04-19-2021 IMPRESSION: NO ACUTE OSSEOUS ABNORMALITY OTHER FINDINGS DESCRIBED Retail Store Manager: [facility] Transcribe Date/Time: Apr 19 2021 2:38P [...] other significant abnormality. DIVISION OF RADIOLOGY Provider, Ccf Patriciaaparna [facility] - 04/19/2021 * * *Final Report* * [...] NO ACUTE OSSEOUS ABNORMALITY OTHER FINDINGS DESCRIBED Retail Store [facility] Transcribe Date/Time: Apr 19 2021 2:38P Dictated by : CAROL ROCHE MD This examination was interpreted and the report reviewed and electronically signed by: CAROL ROCHE MD on Apr 19 2021 2:39PM [facility] Radiology Study [facility]narrative[facility] Elbow - right AP and Late ral and obliqueOrdered By: Ccf Provider on 04-19-2021 [facility] XR SHLDR >/=3V AP/IGNACIA AP/OTH R [...] No other significant abnormality. IMPRESSION: HEALING FRACTURE Retail Store Manager: [employer] Transcribe Date/Time: Apr 19 2021 2:02P Dictated by : CAROL ROCHE MD This examination was interpreted and the report reviewed and electronically signed by: CAROL ROCHE MD on Apr 19 2021 2:02PM EST [id number] Normal [facility] XR Shoulder - right 3 Viewso n 04-19-2021 IMPRESSION: HEALING FRACTURE Retail Store Manager: [employer] Transcribe Date/Time: Apr 19 2021 2:02P [...] significant abnormality. DIVISION OF RADIOLOGY Provider, Lenore Matthew - 04/19/2021 * * *Final Report* * [...] other significant abnormality. IMPRESSION IMPRESSION: HEALING FRACTURE Retail Store Manager: [employer] Transcribe Date/Time: Apr 19 2021 2:02P Dictated by : CAROL ROCHE MD This examination was interpreted and the report reviewed and electronically signed by: CAROL ROCHE MD on Apr 19 2021 2:02PM [facility] Radiology Study observation (narrative) [facility] XR Shoulder - right 3 ViewsO rdered By: Ccza Provider on 04-19-2021 [facility] Vital Signs Date Time Vital Sign Value Performing Clinician Facility 03-16-2025 [id number] Body height 162.6 cm [employer] Work Phone: [facility] 03-16-2025 14:06-0400 Body mass index (BMI) [Ratio] 26.43 kg/m2 [employer] [facility] 03-16-2025 14:06-0400 Body temperature 97.9 [degF] [employer] [facility] 03-16-2025 14:06-0400 Body weight 69.85 kg Robert Furlong DO Work Phone: [facility] 03-16-2025 14:06-0400 Diastolic blood pressure 60 mm[Hg] Robert Furlong DO Work Phone: [facility] 03-16-2025 14:06-0400 Heart rate 56 /min Robert Furlong DO Work Phone: [facility] 03-16-2025 14:06-0400 Respiratory rate 20 /min Robert Furlong DO Work Phone: [facility] 03-16-2025 14:06-0400 SaO2% (BldA) [Mass fraction] 98 % Robert Furlong DO Work Phone: [facility] 03-16-2025 14:06-0400 Systolic blood pressure 110 mm[Hg] Robert Furlong DO Work Phone: [facility] 03-10-2025 09:15-0400 Body height 162.6 cm Maya Lynn WAREHOUSER-POLYMERIZATION ENGINEER Work Phone: [facility] 03-10-2025 09:15-0400 Body mass index (BMI) [Ratio] 26.37 kg/m2 Maya Lynn WAREHOUSER-POLYMERIZATION ENGINEER Work Phone: [facility] 03-10-2025 09:15-0400 Body weight 69.67 kg Maya Lynn WAREHOUSER-POLYMERIZATION ENGINEER Work Phone: [facility] 03-04-2025 13:18-0400 Body height 162.6 cm Martin Arango DPM Work Phone: [facility] 03-04-2025 13:18-0400 Body mass index (BMI) [Ratio] 26.43 kg/m2 Martin Arango DPM Work Phone: [facility] 03-04-2025 13:18-0400 Body weight 69.85 kg Martin Arango DPM Work Phone: [facility] 03-04-2025 13:18-0400 Respiratory rate 16 /min Martin Brown DPM Work Phone: [facility] 02-25-2025 14:48-0400 Body height 162.6 cm Carlos Sanchez MD Work Phone: [facility] 02-25-2025 14:48-0400 Body mass index (BMI) [Ratio] 26.43 kg/m2 Carlos Sanchez MD Work Phone: [facility] 02-25-2025 14:48-0400 Body weight 69.85 kg Carlos Sanchez MD Work Phone: [facility] 02-25-2025 14:48-0400 Diastolic blood pressure 76 mm[Hg] Carlos Sanchez MD Work Phone: [facility] 02-25-2025 14:48-0400 Systolic blood pressure 122 mm[Hg] Carlos Sanchez MD Work Phone: [facility] 02-24-2025 11:29-0400 Body height 162.6 cm Robert Furlong DO Work Phone: [facility] 02-24-2025 11:29-0400 Body mass index (BMI) [Ratio] 26.32 kg/m2 Robert Furlong DO Work Phone: [facility] 02-24-2025 11:29-0400 Body temperature 97.39 [degF] Robert Furlong DO Work Phone: [facility] 02-24-2025 11:29-0400 Body weight 69.58 kg Robert Furlong DO Work Phone: [facility] 02-24-2025 11:29-0400 Diastolic blood pressure 68 mm[Hg] Robert Furlong DO Work Phone: [facility] 02-24-2025 11:29-0400 Heart rate 51 /min Robert Furlong DO Work Phone: [facility] 02-24-2025 11:29-0400 Respiratory rate 18 /min Robert Furlong DO Work Phone: [facility] 02-24-2025 11:29-0400 SaO2% (BldA) [Mass fraction] 98 % Robert Furlong DO Work Phone: [facility] 02-24-2025 11:29-0400 Systolic blood pressure 102 mm[Hg] Robert Furlong DO Work Phone: [facility] 02-04-2025 13:03-0400 Body height 162.6 cm Martin Brown DPM Work Phone: [facility] 02-04-2025 13:03-0400 Body mass index (BMI) [Ratio] 26.95 kg/m2 Martin Brown DPM Work Phone: [facility] 02-04-2025 13:03-0400 Body weight 71.22 kg Martin Brown DPM Work Phone: [facility] 02-04-2025 13:03-0400 Respiratory rate 16 /min Martin Brown DPM Work Phone: [facility] 01-14-2025 16:13-0400 Body height 162.6 cm Martin Brown DPM Work Phone: [facility] 01-14-2025 16:13-0400 Body mass index (BMI) [Ratio] 26.95 kg/m2 Martin Brown DPM Work Phone: [facility] 01-14-2025 16:13-0400 Body weight 71.22 kg Martin Brown DPM Work Phone: [facility] 01-14-2025 16:13-0400 Respiratory rate 18 /min Martin Brown DPM Work Phone: [facility] 12-17-2024 13:06-0400 Body height 162.6 cm Martin Brown DPM Work Phone: [facility] 12-17-2024 13:06-0400 Body mass index (BMI) [Ratio] 26.95 kg/m2 Martin Arango DPM Work Phone: [facility] 12-17-2024 13:06-0400 Body weight 71.22 kg Martin Arango DPM Work Phone: [facility] 12-17-2024 13:06-0400 Respiratory rate 16 /min Martin Arango DPM Work Phone: [facility] 12-15-2024 15:41-0400 Body height 162.6 cm Robert Furlong DO Work Phone: [facility] 12-15-2024 15:41-0400 Body mass index (BMI) [Ratio] 26.25 kg/m2 Robert Furlong DO Work Phone: [facility] 12-15-2024 15:41-0400 Body temperature 97.81 [degF] Robert Furlong DO Work Phone: [facility] 12-15-2024 15:41-0400 Body weight 69.4 kg Robert Furlong DO Work Phone: [facility] 12-15-2024 15:41-0400 Diastolic blood pressure 50 mm[Hg] Robert Furlong DO Work Phone: [facility] 12-15-2024 15:41-0400 Heart rate 58 /min Robert Furlong DO Work Phone: [facility] 12-15-2024 15:41-0400 Respiratory rate 18 /min Robert Furlong DO Work Phone: [facility] 12-15-2024 15:41-0400 SaO2% (BldA) [Mass fraction] 97 % Robert Furlong DO Work Phone: [facility] 12-15-2024 15:41-0400 Systolic blood pressure 110 mm[Hg] Robert Furlong DO Work Phone: [facility] 12-15-2024 09:58-0400 Body mass index (BMI) [Ratio] 26.25 kg/m2 Reyes Borges PA Work Phone: [facility] 12-15-2024 09:58-0400 Body weight 69.4 kg Reyesperla Borges PA Work Phone: [facility] 12-15-2024 09:58-0400 Diastolic blood pressure 70 mm[Hg] Reyes Borges PA Work Phone: [facility] 12-15-2024 09:58-0400 Heart rate 51 /min Reyes Borges PA Work Phone: [facility] 12-15-2024 09:58-0400 Respiratory rate 20 /min Reyes Borges PA Work Phone: [facility] 12-15-2024 09:58-0400 Systolic blood pressure 117 mm[Hg] Reyes Borges PA Work Phone: [facility] 12-03-2024 11:52-0400 Body height 162.6 cm Martin Arango DPM Work Phone: [facility] 12-03-2024 11:52-0400 Body mass index (BMI) [Ratio] 26.95 kg/m2 Martin Arango DPM Work Phone: [facility] 12-03-2024 11:52-0400 Body weight 71.22 kg Martin Arango DPM Work Phone: [facility] 12-03-2024 11:52-0400 Respiratory rate 18 /min Martin Arango DPM Work Phone: [facility] 11-19-2024 10:36-0400 Body height 162.6 cm Martin Arango DPM Work Phone: [facility] 11-19-2024 10:36-0400 Body mass index (BMI) [Ratio] 26.95 kg/m2 Martin Arango DPM Work Phone: [facility] 11-19-2024 10:36-0400 Body weight 71.22 kg Martin Arango DPM Work Phone: [facility] 11-19-2024 10:36-0400 Respiratory rate 16 /min Martin Arango DPM Work Phone: [facility] 11-11-2024 13:26-0400 Body mass index (BMI) [Ratio] 27.02 kg/m2 Carlos Sanchez MD Work Phone: [facility] 11-11-2024 13:26-0400 Body weight 71.4 kg Carlos Sanchez MD Work Phone: [facility] 10-26-2024 15:29-0400 Body height 162.6 cm Robert Furlong DO Work Phone: [facility] 10-26-2024 15:29-0400 Body mass index (BMI) [Ratio] 26.95 kg/m2 Robert Furlong DO Work Phone: [facility] 10-26-2024 15:29-0400 Body temperature 97.2 [degF] Robert Furlong DO Work Phone: [facility] 10-26-2024 15:29-0400 Body weight 71.26 kg Robert Furlong DO Work Phone: [facility] 10-26-2024 15:29-0400 Diastolic blood pressure 50 mm[Hg] Robert Furlong DO Work Phone: [facility] 10-26-2024 15:29-0400 Heart rate 68 /min Robert Furlong DO Work Phone: [facility] 10-26-2024 15:29-0400 Respiratory rate 18 /min Robert Furlong DO Work Phone: [facility] 10-26-2024 15:29-0400 SaO2% (BldA) [Mass fraction] 96 % Robert Giron DO Work Phone: [facility] 10-26-2024 15:29-0400 Systolic blood pressure 98 mm[Hg] Robert Giron DO Work Phone: [facility] 10-12-2024 15:02-0500 Body height 162.56 cm [facility] 10-12-2024 15:02-0500 Body mass index (BMI) [Ratio] 26.4 kg/m2 [facility] 10-12-2024 15:02-0500 Body temperature 98.1 [degF] [facility] 10-12-2024 15:02-0500 Body weight 69.85 kg [facility] 10-12-2024 15:02-0500 Diastolic blood pressure 66 mm[Hg] [facility] 10-12-2024 15:02-0500 Heart rate 92 /min [facility] 10-12-2024 15:02-0500 Respiratory rate 20 /min [facility] 10-12-2024 15:02-0500 SaO2% (BldA) [Mass fraction] 96 % [facility] 10-12-2024 15:02-0500 Systolic blood pressure 116 mm[Hg] [facility] 09-16-2024 13:06-0500 Body height 162.6 cm Nikki Vergara FOUR SLIDE OPERATOR Work Phone: [facility] 09-16-2024 13:06-0500 Body mass index (BMI) [Ratio] 27.48 kg/m2 Nikki Glennynagel FOUR SLIDE OPERATOR Work Phone: [facility] 09-16-2024 13:06-0500 Body weight 72.62 kg Nikki Torygel FOUR SLIDE OPERATOR Work Phone: [facility] 09-16-2024 13:06-0500 Diastolic blood pressure 60 mm[Hg] Nikki Glennynagel FOUR SLIDE OPERATOR Work Phone: [facility] 09-16-2024 13:06-0500 Systolic blood pressure 110 mm[Hg] Nikki Vergara [employer] OPERATOR Work Phone: [facility] 09-15-2024 15:39-0500 Body height 162.6 cm Robert Furlong DO Work Phone: [facility] 09-15-2024 15:39-0500 Body mass index (BMI) [Ratio] 27.29 kg/m2 Robert Furlong DO Work Phone: [facility] 09-15-2024 15:39-0500 Body temperature 97.7 [degF] Robert Furlong DO Work Phone: [facility] 09-15-2024 15:39-0500 Body weight 72.12 kg Robert Furlong DO Work Phone: [facility] 09-15-2024 15:39-0500 Diastolic blood pressure 60 mm[Hg] Robert Furlong DO Work Phone: [facility] 09-15-2024 15:39-0500 Heart rate 104 /min Robert Furlong DO Work Phone: [facility] 09-15-2024 15:39-0500 Respiratory rate 18 /min Robert Furlong DO Work Phone: [facility] 09-15-2024 15:39-0500 SaO2% (BldA) [Mass fraction] 94 % Robert Furlong DO Work Phone: [facility] 09-15-2024 15:39-0500 Systolic blood pressure 90 mm[Hg] Robert Furlong DO Work Phone: [facility] 08-26-2024 12:24-0500 Diastolic blood pressure 59 mm[Hg] Cady Alva [facility] 08-26-2024 12:24-0500 Heart rate 47 /min Cady Alva [facility] 08-26-2024 12:24-0500 Mean blood pressure 76 mm[Hg] Cady Alva [facility] 08-26-2024 12:24-0500 Respiratory rate 16 /min Cady Alva [facility] 08-26-2024 12:24-0500 Systolic blood pressure 111 mm[Hg] Cady Alva [facility] 08-13-2024 13:14-0500 Blood Pressure Location Kehinde Josenus [facility] 08-13-2024 13:14-0500 Diastolic blood pressure 76 mm[Hg] Kehinde Kirnus [facility] 08-13-2024 13:14-0500 Heart rate 62 /min Kehinde Kirnus [facility] 08-13-2024 13:14-0500 Respiratory rate 18 /min Kehinde Kirnus [facility] 08-13-2024 13:14-0500 SaO2% (BldA) [Mass fraction] 98 % Kehinde Kirnus [facility] 08-13-2024 13:14-0500 Systolic blood pressure 120 mm[Hg] Kehinde Kirnus [facility] 08-10-2024 13:09-0500 Body height 162.6 cm Carlos Sanchez MD Work Phone: [facility] 08-10-2024 13:09-0500 Body mass index (BMI) [Ratio] 28.15 kg/m2 Carlos Sanchez MD Work Phone: [facility] 08-10-2024 13:09-0500 Body weight 74.39 kg Carlos Sanchez MD Work Phone: [facility] 07-29-2024 13:54-0500 Body mass index (BMI) [Ratio] 27.64 kg/m2 David Villalobos DO Work Phone: [facility] 07-29-2024 13:54-0500 Body weight 73.03 kg David Wilfredo DO Work Phone: [facility] 07-29-2024 13:54-0500 Diastolic blood pressure 74 mm[Hg] David Wilfredo DO Work Phone: [facility] 07-29-2024 13:54-0500 Systolic blood pressure 120 mm[Hg] David Wilfredo DO Work Phone: [facility] 06-18-2024 15:01-0400 Body height 162.6 cm Martin Brown DPM Work Phone: [facility] 06-18-2024 15:01-0400 Body mass index (BMI) [Ratio] 28.15 kg/m2 Martin Brown DPM Work Phone: [facility] 06-18-2024 15:01-0400 Body weight 74.39 kg Martin Brown DPM Work Phone: [facility] 06-18-2024 15:01-0400 Diastolic blood pressure 79 mm[Hg] Martin Brown DPM Work Phone: [facility] 06-18-2024 15:01-0400 Heart rate 84 /min Martin Brown DPM Work Phone: [facility] 06-18-2024 15:01-0400 Systolic blood pressure 140 mm[Hg] Martin Arango DPM Work Phone: [facility] 05-14-2024 10:18-0400 Body height 162.6 cm Martin Brown DPM Work Phone: [facility] 05-14-2024 10:18-0400 Body mass index (BMI) [Ratio] 28.15 kg/m2 Martin Brown DPM Work Phone: [facility] 05-14-2024 10:18-0400 Body weight 74.39 kg Martin Brown DPM Work Phone: [facility] 05-14-2024 10:18-0400 Diastolic blood pressure 80 mm[Hg] Martin Arango DPM Work Phone: [facility] 05-14-2024 10:18-0400 Heart rate 75 /min Martin Arango DPM Work Phone: [facility] 05-14-2024 10:18-0400 Respiratory rate 18 /min Martin Arango DPM Work Phone: [facility] 05-14-2024 10:18-0400 Systolic blood pressure 125 mm[Hg] Martin Arango DPM Work Phone: [facility] 04-27-2024 14:22-0400 Body height 162.6 cm Carlos Sanchez MD Work Phone: [facility] 04-27-2024 14:22-0400 Body mass index (BMI) [Ratio] 28.15 kg/m2 Carlos Sanchez MD Work Phone: [facility] 04-27-2024 14:22-0400 Body weight 74.39 kg Carlos Sanchez MD Work Phone: [facility] 04-27-2024 14:22-0400 Diastolic blood pressure 86 mm[Hg] Carlos Sanchez MD Work Phone: [facility] 04-27-2024 14:22-0400 Systolic blood pressure 124 mm[Hg] Carlos Sanchez MD Work Phone: [facility] 04-23-2024 09:33-0400 Body height 162.6 cm Martin Arango DPM Work Phone: [facility] 04-23-2024 09:33-0400 Body mass index (BMI) [Ratio] 28.15 kg/m2 Martin Arango DPM Work Phone: [facility] 04-23-2024 09:33-0400 Body weight 74.39 kg Martin Arango DPM Work Phone: [facility] 04-23-2024 09:33-0400 Diastolic blood pressure 82 mm[Hg] Martin Arango DPM Work Phone: [facility] 04-23-2024 09:33-0400 Heart rate 74 /min Martin Harsh DPM Work Phone: [facility] 04-23-2024 09:33-0400 Respiratory rate 18 /min Martin Arango DPM Work Phone: [facility] 04-23-2024 09:33-0400 Systolic blood pressure 128 mm[Hg] Martin Arango DPM Work Phone: [facility] 04-09-2024 10:21-0400 Body height 162.6 cm Martin Arango DPM Work Phone: [facility] 04-09-2024 10:21-0400 Body mass index (BMI) [Ratio] 28.15 kg/m2 Martin Arango DPM Work Phone: [facility] 04-09-2024 10:21-0400 Body weight 74.39 kg Martin Arango DPM Work Phone: [facility] 04-09-2024 10:21-0400 Diastolic blood pressure 80 mm[Hg] Martin Harsh DPM Work Phone: [facility] 04-09-2024 10:21-0400 Heart rate 78 /min Martin Arango DPM Work Phone: [facility] 04-09-2024 10:21-0400 Systolic blood pressure 129 mm[Hg] Martin Arango DPM Work Phone: [facility] 04-08-2024 12:20-0400 Body height 162.6 cm Cj Apling FOUR SLIDE OPERATOR Work Phone: [facility] 04-08-2024 12:20-0400 Body mass index (BMI) [Ratio] 28.15 kg/m2 Cj Apling FOUR SLIDE OPERATOR Work Phone: [facility] 04-08-2024 12:20-0400 Body weight 74.39 kg Cj Apling JEREMIAH Work Phone: [facility] 03-05-2024 15:16-0400 Diastolic blood pressure 69 mm[Hg] Andrew Eid [facility] 03-05-2024 15:16-0400 Heart rate 62 /min Andrew Eid [facility] 03-05-2024 15:16-0400 Mean blood pressure 84 mm[Hg] Andrew Eid [facility] 03-05-2024 15:16-0400 Respiratory rate 14 /min Andrew Eid [facility] 03-05-2024 15:16-0400 Systolic blood pressure 115 mm[Hg] Andrew Eid [facility] 01-30-2024 13:54-0400 Diastolic blood pressure 68 mm[Hg] En Carmen [facility] 01-30-2024 13:54-0400 Systolic blood pressure 124 mm[Hg] En Carmen [facility] 01-15-2024 08:16-0400 Diastolic blood pressure 70 mm[Hg] Cady Alva [facility] 01-15-2024 08:16-0400 Heart rate 73 /min Cady Alva [facility] 01-15-2024 08:16-0400 Mean blood pressure 82 mm[Hg] Cady Alva [facility] 01-15-2024 08:16-0400 Respiratory rate 16 /min Cady Alva [facility] 01-15-2024 08:16-0400 Systolic blood pressure 105 mm[Hg] Cady Alva [facility] 01-01-2024 11:04-0400 Diastolic blood pressure 71 mm[Hg] Cady Alva [facility] 01-01-2024 11:04-0400 Heart rate 62 /min Cady Alva [facility] 01-01-2024 11:04-0400 Mean blood pressure 91 mm[Hg] Cady Alva [facility] 01-01-2024 11:04-0400 Respiratory rate 12 /min Cady Alva [facility] 01-01-2024 11:04-0400 Systolic blood pressure 131 mm[Hg] Cady Alva [facility] 12-31-2023 12:53-0400 Blood Pressure Location SHERI JIMENES [facility] 12-31-2023 12:53-0400 Diastolic blood pressure 65 mm[Hg] SHERI YUDY [facility] 12-31-2023 12:53-0400 Heart rate 57 /min SHERI YUDY [facility] 12-31-2023 12:53-0400 Respiratory rate 16 /min SHERI YUDY [facility] 12-31-2023 12:53-0400 Systolic blood pressure 117 mm[Hg] SHERI YUDY [facility] 12-11-2023 09:29-0400 Heart rate 89 /min Andrew Eid [facility] 12-11-2023 09:29-0400 SaO2% (BldA) [Mass fraction] 96 % Andrew Eid [facility] 12-11-2023 09:29-0400 Diastolic blood pressure 86 mm[Hg] Andrew Eid [facility] 12-11-2023 09:29-0400 Mean blood pressure 103 mm[Hg] Andrew Eid [facility] 12-11-2023 09:29-0400 Systolic blood pressure 137 mm[Hg] Andrew Eid [facility] 12-11-2023 09:29-0400 Respiratory rate 14 /min Andrew Eid [facility] 12-11-2023 09:25-0400 Diastolic blood pressure 84 mm[Hg] Andrew Eid [facility] 12-11-2023 09:25-0400 Heart rate 97 /min Andrew Eid [facility] 12-11-2023 09:25-0400 SaO2% (BldA) [Mass fraction] 96 % Andrew Eid [facility] 12-11-2023 09:25-0400 Systolic blood pressure 141 mm[Hg] Andrew Eid [facility] 12-11-2023 08:44-0400 Heart rate 93 /min Andrew iEd [facility] 12-11-2023 08:44-0400 SaO2% (BldA) [Mass fraction] 94 % Andrew Stanton [facility] 12-11-2023 08:44-0400 Body temperature 98.24 [degF] Morales Stanton [facility] 12-11-2023 08:43-0400 Diastolic blood pressure 86 mm[Hg] Andrew Eid [facility] 12-11-2023 08:43-0400 Mean blood pressure 102 mm[Hg] Andrew Eid [facility] 12-11-2023 08:43-0400 Systolic blood pressure 134 mm[Hg] Andrew Eid [facility] 12-11-2023 08:43-0400 Respiratory rate 15 /min Andrew Eid [facility] 11-06-2023 09:32-0400 Diastolic blood pressure 71 mm[Hg] Cady Alva [facility] 11-06-2023 09:32-0400 Heart rate 79 /min Cady Alva [facility] 11-06-2023 09:32-0400 Mean blood pressure 84 mm[Hg] Cady Alva [facility] 11-06-2023 09:32-0400 Respiratory rate 15 /min Cady Alva [facility] 11-06-2023 09:32-0400 Systolic blood pressure 111 mm[Hg] Cady Alva [facility] 09-26-2023 15:11-0500 Body height 165.1 cm Martin Arango DPM Work Phone: [facility] 09-26-2023 15:11-0500 Body mass index (BMI) [Ratio] 29.29 kg/m2 Martin Arango DPM Work Phone: [facility] 09-26-2023 15:11-0500 Body weight 79.83 kg Martin Arango DPM Work Phone: [facility] 09-26-2023 15:11-0500 Diastolic blood pressure 80 mm[Hg] Martin Arango DPM Work Phone: [facility] 09-26-2023 15:11-0500 Heart rate 79 /min Martin Arango DPM Work Phone: [facility] 09-26-2023 15:11-0500 Systolic blood pressure 133 mm[Hg] Martin Arango DPM Work Phone: [facility] 09-17-2023 08:23-0500 Blood Pressure Location SHERI YUDY [facility] 09-17-2023 08:23-0500 Diastolic blood pressure 52 mm[Hg] SHERI YUDY [facility] 09-17-2023 08:23-0500 Heart rate 65 /min SHERI YUDY [facility] 09-17-2023 08:23-0500 Respiratory rate 16 /min SHERI YUDY [facility] 09-17-2023 08:23-0500 Systolic blood pressure 135 mm[Hg] SHERI YUDY [facility] 08-27-2023 10:30-0500 Body height 165.1 cm Valarie Yael Other [employer] Other 08-27-2023 10:30-0500 Body mass index (BMI) [Ratio] 29.28 kg/m2 Valarie Yael Other [employer] Other 08-27-2023 10:30-0500 Body temperature 97.2 [degF] Valarie Yael Other [employer] Other 08-27-2023 10:30-0500 Body weight 79.83 kg Valarie Yael Other [employer] Other 08-27-2023 10:30-0500 Diastolic blood pressure 80 mm[Hg] Valarie Yael Other [employer] Other 08-27-2023 10:30-0500 Respiratory rate 20 /min Valarie Yael Other [employer] Other 08-27-2023 10:30-0500 SaO2% (BldA) [Mass fraction] 93 % Valarie Conley Other [employer] Other 08-27-2023 10:30-0500 Systolic blood pressure 132 mm[Hg] Valarie Yael Other [employer] Other 07-25-2023 10:39-0500 Blood Pressure Location Elliott SOLIS [facility] 07-25-2023 10:39-0500 Diastolic blood pressure 82 mm[Hg] Elliott SOLIS [facility] 07-25-2023 10:39-0500 Heart rate 76 /min Elliott SOLIS [facility] 07-25-2023 10:39-0500 SaO2% (BldA) [Mass fraction] 97 % Elliott SOLIS [facility] 07-25-2023 10:39-0500 Systolic blood pressure 138 mm[Hg] Elliott SOLIS [facility] 07-05-2023 15:44-0500 Blood Pressure Location Cady CALIX [facility] 07-05-2023 15:44-0500 Diastolic blood pressure 83 mm[Hg] Cady STANG [facility] 07-05-2023 15:44-0500 Heart rate 70 /min Cady STANG [facility] 07-05-2023 15:44-0500 SaO2% (BldA) [Mass fraction] 99 % Cady STANG [facility] 07-05-2023 15:44-0500 Systolic blood pressure 138 mm[Hg] Cady STANG [facility] 05-20-2023 10:03-0400 Blood Pressure Location Cady CALIX [facility] 05-20-2023 10:03-0400 Diastolic blood pressure 80 mm[Hg] Cady CALIX [facility] 05-20-2023 10:03-0400 Heart rate 75 /min Cady CALIX [facility] 05-20-2023 10:03-0400 SaO2% (BldA) [Mass fraction] 98 % Cady CALIX [facility] 05-20-2023 10:03-0400 Systolic blood pressure 130 mm[Hg] Cady CALIX [facility] 02-26-2023 08:30-0400 Body height 165.1 cm Valarie Yael Other [employer] Other 02-26-2023 08:30-0400 Body mass index (BMI) [Ratio] 28.25 kg/m2 Valarie Yael Other [employer] Other 02-26-2023 08:30-0400 Body temperature 96.9 [degF] Valarie Yael Other [employer] Other 02-26-2023 08:30-0400 Body weight 77.02 kg Valarie Yael Other [employer] Other 02-26-2023 08:30-0400 Diastolic blood pressure 84 mm[Hg] Valarie Yael Other [employer] Other 02-26-2023 08:30-0400 Respiratory rate 20 /min Valarie Yael Other [employer] Other 02-26-2023 08:30-0400 SaO2% (BldA) [Mass fraction] Valarie Yael Other [facility] [employer] Other 02-26-2023 08:30-0400 Systolic blood pressure 138 mm[Hg] Valarie Yael Other [facility] [employer] Other 01-17-2023 10:04-0400 Diastolic blood pressure 76 mm[Hg] Poole SALAM [facility] 01-17-2023 10:04-0400 Heart rate 70 /min Poole SALAM [facility] 01-17-2023 10:04-0400 Mean blood pressure 100 mm[Hg] Poole SALAM [facility] 01-17-2023 10:04-0400 Respiratory rate 17 /min Poole SALAM [facility] 01-17-2023 10:04-0400 SaO2% (BldA) [Mass fraction] 99 % Poole SALAM [facility] 01-17-2023 10:04-0400 Systolic blood pressure 149 mm[Hg] Poole SALAM [facility] 01-17-2023 09:55-0400 Diastolic blood pressure 80 mm[Hg] Poole SALAM [facility] 01-17-2023 09:55-0400 Heart rate 74 /min Poole SALAM [facility] 01-17-2023 09:55-0400 Mean blood pressure 97 mm[Hg] Poole SALAM [facility] 01-17-2023 09:55-0400 Respiratory rate 15 /min Poole SALAM [facility] 01-17-2023 09:55-0400 SaO2% (BldA) [Mass fraction] 99 % Poole SALAM [facility] 01-17-2023 09:55-0400 Systolic blood pressure 132 mm[Hg] Poole SALAM [facility] 01-17-2023 09:50-0400 Diastolic blood pressure 79 mm[Hg] Poole SALAM [facility] 01-17-2023 09:50-0400 Heart rate 73 /min Poole SALAM [facility] 01-17-2023 09:50-0400 Mean blood pressure 94 mm[Hg] Poole SALAM [facility] 01-17-2023 09:50-0400 Respiratory rate 13 /min Poole SALAM [facility] 01-17-2023 09:50-0400 SaO2% (BldA) [Mass fraction] 98 % Poole SALAM [facility] 01-17-2023 09:50-0400 Systolic blood pressure 125 mm[Hg] Poole SALAM [facility] 01-17-2023 09:39-0400 Body temperature 98.24 [degF] Poole SALAM [facility] 01-17-2023 08:35-0400 Blood Pressure Location Poole SALAM [facility] 01-17-2023 08:35-0400 Body temperature 98.06 [degF] Poole SALAM [facility] 11-21-2022 12:41-0400 Heart rate 61 /min Martin Arango [facility] 11-21-2022 12:41-0400 SaO2% (BldA) [Mass fraction] 97 % Martin Arango [facility] 11-21-2022 12:41-0400 Diastolic blood pressure 64 mm[Hg] Martin Arango [facility] 11-21-2022 12:41-0400 Mean blood pressure 85 mm[Hg] Martin Arango [facility] 11-21-2022 12:41-0400 Systolic blood pressure 128 mm[Hg] Martin Arango [facility] 11-21-2022 12:41-0400 Body temperature 96.98 [degF] Martin Arango [facility] 11-21-2022 12:40-0400 Respiratory rate 16 /min Martin Arango [facility] 11-21-2022 11:09-0400 Heart rate 66 /min Martin Arango [facility] 11-21-2022 11:09-0400 SaO2% (BldA) [Mass fraction] 100 % Martin Arango [facility] 11-21-2022 11:09-0400 Diastolic blood pressure 68 mm[Hg] Martin Arango [facility] 11-21-2022 11:09-0400 Mean blood pressure 84 mm[Hg] Martin Arango [facility] 11-21-2022 11:09-0400 Systolic blood pressure 116 mm[Hg] Martin Arango [facility] 11-21-2022 11:09-0400 Body temperature 98.06 [degF] Martin Arango [facility] 11-21-2022 11:08-0400 Respiratory rate 14 /min Martin Arango [facility] 11-21-2022 10:55-0400 Body temperature 97.16 [degF] Martin Arango [facility] 11-21-2022 10:55-0400 Diastolic blood pressure 85 mm[Hg] Martin Arango [facility] 11-21-2022 10:55-0400 Heart rate 65 /min Martin Arango [facility] 11-21-2022 10:55-0400 Mean blood pressure 98 mm[Hg] Martin Arango [facility] 11-21-2022 10:55-0400 Respiratory rate 18 /min Martin Arango [facility] 11-21-2022 10:55-0400 SaO2% (BldA) [Mass fraction] 98 % Martin Arango [facility] 11-21-2022 10:55-0400 Systolic blood pressure 123 mm[Hg] Martin Arango [facility] 11-21-2022 10:45-0400 Mean blood pressure 84 mm[Hg] Martin Arango [facility] 11-21-2022 10:45-0400 Respiratory rate 15 /min Martin Arango [facility] 11-21-2022 10:30-0400 Mean blood pressure 73 mm[Hg] Martin Arango [facility] 11-21-2022 10:30-0400 Respiratory rate 13 /min Martin Arango [facility] 11-21-2022 10:15-0400 Respiratory rate 1 /min Martin Arango [facility] 11-21-2022 07:43-0400 Mean blood pressure 100 mm[Hg] Martin Harsh [facility] 11-21-2022 07:43-0400 Heart rate 62 /min Martin Arango [facility] 10-30-2022 15:25-0400 Blood Pressure Location Elliott Solis [facility] 10-30-2022 15:25-0400 Diastolic blood pressure 80 mm[Hg] Elliott Solis [facility] 10-30-2022 15:25-0400 Heart rate 70 /min Elliott Solis [facility] 10-30-2022 15:25-0400 SaO2% (BldA) [Mass fraction] 95 % Elliott Solis [facility] 10-30-2022 15:25-0400 Systolic blood pressure 126 mm[Hg] Elliott Solis [facility] 10-29-2022 14:56-0400 Diastolic blood pressure 86 mm[Hg] Inessa Carmenmetz [facility] 10-29-2022 14:56-0400 Mean blood pressure 103 mm[Hg] Inessa Nicci [facility] 10-29-2022 14:56-0400 Systolic blood pressure 138 mm[Hg] Inessa Nicci [facility] 10-29-2022 14:50-0400 Blood Pressure Location Inessa Nicci [facility] 10-29-2022 14:50-0400 Body temperature 97.88 [degF] Inessa Nicci [facility] 03-13-2023 14:50-0400 Diastolic blood pressure 86 mm[Hg] Inessa Grajeda [facility] 10-29-2022 14:50-0400 Heart rate 85 /min Inessa Grajeda [facility] 10-29-2022 14:50-0400 Systolic blood pressure 141 mm[Hg] Inessa Grajeda [facility] 10-20-2022 10:33-0500 Body temperature 95.9 [degF] Santosaparna Landry [facility] 10-20-2022 10:33-0500 Diastolic blood pressure 73 mm[Hg] Santos Landry [facility] 10-20-2022 10:33-0500 Heart rate 62 /min Santos Landry [facility] 10-20-2022 10:33-0500 Respiratory rate 18 /min Santos Frantz [facility] 10-20-2022 10:33-0500 SaO2% (BldA) [Mass fraction] 100 % Santos Frantz [facility] 10-20-2022 10:33-0500 Systolic blood pressure 151 mm[Hg] Santos Frantz [facility] 10-12-2022 13:06-0500 Body temperature 97.7 [degF] Santos Frantz [facility] 10-12-2022 13:06-0500 Diastolic blood pressure 71 mm[Hg] Santos Frantz [facility] 10-12-2022 13:06-0500 Heart rate 68 /min Santos Frantz [facility] 10-12-2022 13:06-0500 Respiratory rate 18 /min Santosaparna Landry [facility] 10-12-2022 13:06-0500 SaO2% (BldA) [Mass fraction] 98 % Santos Landry [facility] 10-12-2022 13:06-0500 Systolic blood pressure 126 mm[Hg] Santos Landry [facility] 10-02-2022 12:31-0500 Blood Pressure Location Inessarm CarmenNicci [facility] 10-02-2022 12:31-0500 Diastolic blood pressure 52 mm[Hg] Inessa Nicci [facility] 10-02-2022 12:31-0500 Heart rate 56 /min Inessa Carmenmetz [facility] 10-02-2022 12:31-0500 SaO2% (BldA) [Mass fraction] 100 % Inessa Grajeda [facility] 10-02-2022 12:31-0500 Systolic blood pressure 136 mm[Hg] Inessa Nicci [facility] 09-06-2022 10:09-0500 Blood Pressure Location Poole SALAM [facility] 09-06-2022 10:09-0500 Diastolic blood pressure 71 mm[Hg] Poole SALAM [facility] 09-06-2022 10:09-0500 Heart rate 70 /min Poole SALAM [facility] 09-06-2022 10:09-0500 Respiratory rate 22 /min Poole SALAM [facility] 09-06-2022 10:09-0500 Systolic blood pressure 145 mm[Hg] Poole SALAM [facility] 09-06-2022 10:05-0500 Blood Pressure Location Poole SALAM [facility] 09-06-2022 10:05-0500 Diastolic blood pressure 66 mm[Hg] Poole SALAM [facility] 09-06-2022 10:05-0500 Heart rate 66 /min Poole SALAM [facility] 09-06-2022 10:05-0500 Respiratory rate 20 /min Poole SALAM [facility] 09-06-2022 10:05-0500 SaO2% (BldA) [Mass fraction] 100 % Poole SALAM [facility] 09-06-2022 10:05-0500 Systolic blood pressure 94 mm[Hg] Poole SALAM [facility] 09-06-2022 10:00-0500 Heart rate 59 /min Poole SALAM [facility] 09-06-2022 10:00-0500 Respiratory rate 17 /min Poole SALAM [facility] 09-06-2022 10:00-0500 Systolic blood pressure 90 mm[Hg] Poole SALAM [facility] 09-06-2022 09:55-0500 SaO2% (BldA) [Mass fraction] 100 % Poole SALAM [facility] 09-06-2022 09:40-0500 Body temperature 96.62 [degF] Poole SALAM [facility] 09-06-2022 07:35-0500 Body temperature 96.62 [degF] Poole SALAM [facility] 07-05-2022 10:00-0500 Body height 165.1 cm Valarie Yael Other [employer] Other 07-05-2022 10:00-0500 Body mass index (BMI) [Ratio] 28.95 kg/m2 Valarie Yael Other [employer] Other 07-05-2022 10:00-0500 Body temperature 97 [degF] Valarie Yael Other [employer] Other 07-05-2022 10:00-0500 Body weight 78.93 kg Valarie Yael Other [employer] Other 07-05-2022 10:00-0500 Diastolic blood pressure 77 mm[Hg] Valarie Yael Other [employer] Other 07-05-2022 10:00-0500 Respiratory rate 20 /min Valarie Yael Other [employer] Other 07-05-2022 10:00-0500 SaO2% (BldA) [Mass fraction] Valarie Yael Other [employer] Other 07-05-2022 10:00-0500 Systolic blood pressure 137 mm[Hg] Valarie Yael Other [facility] Other 05-15-2022 13:22-0400 Diastolic blood pressure 65 mm[Hg] Cadyblaine KLEING [facility] 05-15-2022 13:22-0400 Mean blood pressure 85 mm[Hg] Cady STANG [facility] 05-15-2022 13:22-0400 Systolic blood pressure 126 mm[Hg] Cady ERNIEG [facility] 05-15-2022 13:08-0400 Blood Pressure Location Cadyblaine CALIX [facility] 05-15-2022 13:08-0400 Diastolic blood pressure 88 mm[Hg] Cadyblaine CALIX [facility] 05-15-2022 13:08-0400 Heart rate 62 /min Cadyblaine CALIX [facility] 05-15-2022 13:08-0400 Respiratory rate 18 /min Cadyblaine CALIX [facility] 05-15-2022 13:08-0400 SaO2% (BldA) [Mass fraction] 100 % Cadyblaine CALIX [facility] 05-15-2022 13:08-0400 Systolic blood pressure 140 mm[Hg] Cadyblaine CALIX [facility] 03-20-2022 13:16-0400 Diastolic blood pressure 72 mm[Hg] Elliott Solis [facility] 03-20-2022 13:16-0400 Heart rate 73 /min Elliott Solis [facility] 03-20-2022 13:16-0400 Mean blood pressure 87 mm[Hg] Elliott Solis [facility] 03-20-2022 13:16-0400 Respiratory rate 18 /min Elliott Solis [facility] 03-20-2022 13:16-0400 Systolic blood pressure 118 mm[Hg] Elliott Solis [facility] 03-06-2022 10:27-0400 Blood Pressure Location Cady CALIX [facility] 03-06-2022 10:27-0400 Diastolic blood pressure 78 mm[Hg] Cady CALIX [facility] 03-06-2022 10:27-0400 Heart rate 68 /min Cady CALIX [facility] 03-06-2022 10:27-0400 Respiratory rate 18 /min Cady CALIX [facility] 03-06-2022 10:27-0400 SaO2% (BldA) [Mass fraction] 98 % Cadyblaine CALIX [facility] 03-06-2022 10:27-0400 Systolic blood pressure 137 mm[Hg] Cady CALIX [facility] 01-11-2022 15:06-0400 Diastolic blood pressure 83 mm[Hg] Poole SALAM [facility] 01-11-2022 15:06-0400 Heart rate 61 /min Poole SALAM [facility] 01-11-2022 15:06-0400 Systolic blood pressure 136 mm[Hg] Poole SALAM [facility] 12-11-2021 12:00-0400 Blood Pressure Location Donaldo PEARSON [facility] 12-11-2021 12:00-0400 Diastolic blood pressure 75 mm[Hg] Donaldo PEARSON [facility] 12-11-2021 12:00-0400 Heart rate 78 /min Donaldo PEARSON [facility] 12-11-2021 12:00-0400 Systolic blood pressure 107 mm[Hg] Donaldo PEARSON [facility] Encounters Encounter Date Encounter Type Care Provider Facility Start: 05-04-2025 ambulatory Donaldo Lirianoi ty:FILIPE Lorenzo Start: 04-15-2025 End: 04-15-2025 Refill Robert G Furlong DO Work Phone: [facility] Comment on above: Type 2 diabetes mouna itus with diabetic mononeuropathy, without long-term current use of insulin ([facility]) Start: 04-13-2025 End: 04-13-2025 Patient encounter procedure Valarie Brink APRN ACNP-BC -CT Scan [facility] Work Phone: Start: 04-13-2025 End: 04-13-2025 ambulatory Robert Furlong DO Work Phone: [facility] Work Phone: Start: 04-12-2025 End: 04-12-2025 Refill Amaris Hilton CMA [facility] Comment on above: Complex tear of medi al meniscus of left knee, sequela Start: 04-08-2025 End: 04-08-2025 Refill Robert G Furlong DO Work Phone: [facility] Start: 04-06-2025 ambulatory [facility] ity:[facility] Start: 04-04-2025 End: 04-05-2025 Refill Robert G Furlong DO Work Phone: [facility] Comment on above: Complex tear of medi al meniscus of left knee, sequela Start: 03-28-2025 End: 03-29-2025 Refill Robert G Furlong DO Work Phone: [facility] Comment on above: Complex tear of medi al meniscus of left knee, sequela Start: 03-24-2025 ambulatory JIM LERMA [facility] ity:[facility] Start: 03-23-2025 End: 03-23-2025 Telephone encounter JrDanica Lerma DO Work Phone: [facility] Comment on above: surgery clearance Start: 03-22-2025 End: 03-22-2025 Refill Robert G Furlong DO Work Phone: [facility] Start: 03-21-2025 End: 03-22-2025 Refill Robert G Furlong DO Work Phone: [facility] Comment on above: Complex tear of medi al meniscus of left knee, sequela Start: 03-19-2025 End: 03-19-2025 ambulatory XXXX NONE Facility:[facility] Start: 03-17-2025 End: 03-17-2025 ambulatory Sofiya Quintanaa Facility:[facility] Start: 03-17-2025 End: 03-17-2025 Patient encounter procedure Sofiya Villa [facility] Start: 03-16-2025 End: 03-16-2025 Office outpatient visit 25 minutes Robert G Nellalong DO [facility] Comment on above: Lumbosacral radiculo arnaldo at L5 (Primary Dx); Osteoarthritis, unspecified osteoarthritis type, unspecified site; Diabetes mellitus without complication (CMS-HCC); Chronic obstructive pulmonary disease, unspecified COPD type (CMS-HCC); Anxiety Start: 03-16-2025 End: 03-16-2025 ambulatory ROBERT GIRON [facility] Start: 03-15-2025 End: 03-16-2025 Refill Robert G Furlong DO [facility] Comment on above: Complex tear of medi al meniscus of left knee, sequela Start: 03-12-2025 End: 03-12-2025 Refill Robert G Furlong DO Work Phone: [facility] Start: 03-10-2025 End: 03-10-2025 Office outpatient new 30 minutes Maya Jerome Shane WAREHOUSER-POLYMERIZATION ENGINEER Work Phone: [facility] Comment on above: Incontinence of fece s with fecal urgency (Primary Dx); Altered bowel habits; Polyp of colon, unspecified part of colon, unspecified type Start: 03-10-2025 End: 03-10-2025 Orders Only Not In System Ref Prov [facility] Start: 03-09-2025 End: 03-09-2025 Bamnajma Lerma DO Work Phone: [facility] Start: 03-09-2025 End: 03-09-2025 Bamboo flowshemalatha Lerma DO Work Phone: [facility] Start: 03-09-2025 End: 03-09-2025 Office outpatient visit 40 minutes Jr. Jim Lerma DO Work Phone: [facility] Comment on above: Arthritis of left kn ee (Primary Dx); Acute pain of left knee Start: 03-09-2025 End: 03-09-2025 ambulatory JIM WELLS Not Available Start: 03-04-2025 End: 03-04-2025 Bamboo flowsheet Martin Arango DPM Work Phone: [facility] Start: 03-04-2025 End: 03-04-2025 Bamboo flowsheet Martin Arango DPM Work Phone: [facility] Start: 03-04-2025 End: 03-04-2025 Office outpatient visit 15 minutes Martin Arango DPM Work Phone: [facility] Comment on above: Mild ankle sprain, r ight, initial encounter (Primary Dx); Diabetes 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 polyneuropathy, with long-term current use of insulin (HCC); Contracture of right ankle Start: 03-04-2025 End: 03-04-2025 ambulatory MARTIN ARANGO Not Available Start: 02-25-2025 End: 02-25-2025 Office outpatient visit 25 minutes Carlos Sanchez MD Work Phone: [facility] Comment on above: Intractable chronic migraine without aura and without status migrainosus (Primary Dx); Primary insomnia Start: 02-25-2025 End: 02-25-2025 ambulatory CARLOS SANCHEZ Not Available Start: 02-25-2025 End: 02-25-2025 Bamboo flowsheet Carlos Sanchez MD Work Phone: [facility] Start: 02-25-2025 End: 02-25-2025 Bamboo flowsheet Carlos Sanchez MD Work Phone: [facility] Start: 02-24-2025 End: 02-24-2025 Bamboo flowsheet Shmuel Levine AERIAL PLANTING AND CULTIVATION MANAGER [facility] Start: 02-24-2025 End: 02-24-2025 Bamboo flowsheet Shmuel Levine AERIAL PLANTING AND CULTIVATION MANAGER [facility] Start: 02-24-2025 End: 02-24-2025 ambulatory Shmuel Levine AERIAL PLANTING AND CULTIVATION MANAGER [facility] Comment on above: Mild ankle sprain, r ight, initial encounter (Primary Dx) Diabetes mellitus wi thout complication ([facility]) Start: 02-24-2025 End: 02-24-2025 Office outpatient visit 25 minutes Robert Giron DO Work Phone: [facility] Comment on above: Chest wall pain (Anastasiia ros Dx); Complex tear of medial meniscus of left knee, sequela; Polyp of colon, unspecified part of colon, unspecified type; Diabetes mellitus without complication ([facility]) Start: 02-24-2025 End: 02-24-2025 ambulatory ROBERT G [facility] Start: 02-22-2025 End: 02-22-2025 ambulatory Andria Carter AERIAL PLANTING AND CULTIVATION MANAGER [facility] Comment on above: Mild ankle sprain, r ight, initial encounter (Primary Dx) Start: 02-22-2025 End: 02-22-2025 Bamboo flowsheet Adnria Brink AERIAL PLANTING AND CULTIVATION MANAGER [facility] Start: 02-22-2025 End: 02-22-2025 Bamboo flowsheet Andria Brink AERIAL PLANTING AND CULTIVATION MANAGER [facility] Start: 02-15-2025 End: 02-15-2025 Bamboo flowsheet Andria Brink AERIAL PLANTING AND CULTIVATION MANAGER [facility] Start: 02-15-2025 End: 02-15-2025 Bamboo flowsheet Andria Brink AERIAL PLANTING AND CULTIVATION MANAGER [facility] Start: 02-15-2025 End: 02-15-2025 ambulatory Andria Carter AERIAL PLANTING AND CULTIVATION MANAGER [facility] Comment on above: Mild ankle sprain, r ight, initial encounter (Primary Dx) Start: 02-11-2025 End: 02-11-2025 Bamboo flowsheet Gricelda Hammond PT [facility] Start: 02-11-2025 End: 02-11-2025 Bamboo flowsheet Gricelda Hammond PT [facility] Start: 02-11-2025 End: 02-11-2025 ambulatory Gricelda Hammond PT [facility] Comment on above: Mild ankle sprain, r ight, initial encounter (Primary Dx) Start: 02-08-2025 End: 02-08-2025 Telephone encounter Andria Carter AERIAL PLANTING AND CULTIVATION MANAGER [facility] Comment on above: Cx PT today Start: 02-06-2025 End: 02-09-2025 Refill Robert Giron DO Work Phone: [facility] Start: 02-04-2025 End: 02-04-2025 Bamboo flowsheet Martin Arango DPM Work Phone: [facility] Start: 02-04-2025 End: 02-04-2025 Bamboo flowshemalatha Arango DPM Work Phone: [facility] Start: 02-04-2025 End: 02-04-2025 Office outpatient visit 15 minutes Martin Arango DPM Work Phone: [facility] Comment on above: Mild ankle sprain, r ight, initial encounter (Primary Dx); Paronychia, toe, right; Diabetes 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 polyneuropathy, with long-term current use of insulin (HCC) Start: 02-04-2025 End: 02-04-2025 ambulatory Andria Carter AERIAL PLANTING AND CULTIVATION MANAGER [facility] Comment on above: Contusion of right s houlder, subsequent encounter (Primary Dx); Right shoulder pain, unspecified chronicity Start: 01-29-2025 End: 02-01-2025 Telephone encounter Andria Carter AERIAL PLANTING AND CULTIVATION MANAGER [facility] Comment on above: Cx PT today Downey neuroma, emelina t Start: 01-25-2025 End: 01-25-2025 Refill Robert Kimball Furmelvinng DO [facility]: [facility] Comment on above: Downey neuroma, righ t Contusion of right s houlder, subsequent encounter (Primary Dx); Right shoulder pain, unspecified chronicity Start: 01-21-2025 End: 01-21-2025 Lab Drop off SHERI JIMENES [facility] Start: 01-21-2025 End: 01-21-2025 Patient encounter procedure SHERI JIMENES [facility] Start: 01-21-2025 End: 01-21-2025 Refill Simi Petty CMA [facility] Comment on above: Anxiety Start: 01-15-2025 End: 01-15-2025 Refill Robert Kimball Furlong DO Work [facility]: [facility] Start: 01-14-2025 End: 01-14-2025 Office outpatient visit 15 minutes Martin Arango DPM Work Phone: [facility] Comment on above: Mild ankle sprain, r ight, initial encounter (Primary Dx); Paronychia, toe, right; Downey neuroma, right Start: 01-14-2025 End: 01-14-2025 ambulatory MARTIN ARANGO Not Available Start: 01-14-2025 End: 01-14-2025 Bamboo flowsheet Martin Arango DPM Work Phone: [facility] Start: 01-14-2025 End: 01-14-2025 Bamboo flowsheet Martin Arango DPM Work Phone: [facility] Start: 01-07-2025 End: 01-07-2025 ambulatory MARTIN RAANGO Not Available Start: 01-05-2025 End: 01-05-2025 ambulatory SHERI MURPHYRY Facility:[facility] Start: 01-05-2025 End: 01-05-2025 Patient encounter procedure SHERI Gordy JIMENES [facility] Start: 01-02-2025 End: 01-02-2025 Telephone encounter Martin Arango DPM Work Phone: [facility] Start: 01-02-2025 End: 01-02-2025 ambulatory Robert Giron Facility:[facility] Start: 01-01-2025 End: 01-01-2025 Telephone encounter Martin Arango DPM Work Phone: [facility] Start: 12-29-2024 End: 01-05-2025 Telephone encounter Gricelda Hammond PT [facility] Comment on above: PT Initial Eval; Larry l Back Start: 12-25-2024 End: 12-25-2024 ambulatory ROBERT GIRON [facility] Start: 12-18-2024 End: 12-22-2024 Refill Robert Giron DO Work Phone: [facility] Comment on above: Anxiety Start: 12-17-2024 End: 12-17-2024 Bamboo flowsheet Martin Arango DPM Work Phone: [facility] Start: 12-17-2024 End: 12-17-2024 Bamboo flowsheet Martin Arango DPM Work Phone: [facility] Start: 12-17-2024 End: 12-17-2024 Office outpatient visit 25 minutes Martin Arango DPM Work Phone: [facility] Comment on above: Downey neuroma, emelina t (Primary Dx); Acquired deformity of right toe; Paronychia, toe, right; Diabetes 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 polyneuropathy, with long-term current use of insulin ([facility]) Start: 12-17-2024 End: 12-17-2024 ambulatory MARTIN ARANGO Not Available Start: 12-15-2024 End: 12-15-2024 Office outpatient visit [facility] Work Phone: [facility] Comment on above: Anxiety (Primary Dx) ; Diabetes mellitus without complication ([facility]); Enthesopathy of elbow Start: 12-15-2024 End: 12-15-2024 ambulatory [facility] Start: 12-15-2024 End: 12-15-2024 Office outpatient visit 25 minutes Reyes Borges PA Work Phone: [facility] Comment on above: Cervical spondylosis without myelopathy (Primary Dx) Start: 12-15-2024 End: 12-15-2024 ambulatory REYES BORGES [facility] Start: 12-15-2024 End: 12-15-2024 ambulatory [facility] Start: 12-03-2024 End: 12-03-2024 Bamboo flowsheet Martin Arango DPM Work Phone: [facility] Start: 12-03-2024 End: 12-03-2024 Bamboo flowsheet Martin Arango DPM Work Phone: [facility] Start: 12-03-2024 End: 12-03-2024 Office outpatient visit 15 minutes Martin Arango DPM Work Phone: [facility] Comment on above: Downey neuroma, righ t (Primary Dx); Diabetes 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 polyneuropathy, with long-term current use of insulin (CMS/HCC); Acquired deformity of right toe; Paronychia, toe, right Start: 12-03-2024 End: 12-03-2024 ambulatory MARTIN ARANGO Not Available Start: 11-19-2024 End: 11-19-2024 Bamboo flowsheet Martin Arango DPM Work Phone: [facility] Start: 11-19-2024 End: 11-19-2024 Bamboo flowsheet Martin Arango DPM Work Phone: [facility] Start: 11-19-2024 End: 11-19-2024 Office outpatient visit 15 minutes Martin Arango DPM Work Phone: [facility] Comment on above: 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); Diabetes 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 polyneuropathy, with long-term current use of insulin (CMS/HCC); Downey neuroma, right Start: 11-19-2024 End: 11-19-2024 ambulatory MARTIN ARANGO Not Available Start: 11-17-2024 End: 11-18-2024 Refill Robert Giron DO Work Phone: [facility] Start: 11-13-2024 End: 11-13-2024 Patient encounter procedure Robert Giron DO Work Phone: [facility] [place] Work Phone: Start: 11-13-2024 End: 11-13-2024 Refill Carlos Sanchez MD Work Phone: [id number] Comment on above: Intractable chronic migraine without aura and without status migrainosus (CMS/HCC) (Primary Dx) Start: 11-11-2024 End: 11-11-2024 Bamboo flowsheet Carlos Sanchez MD Work Phone: [facility] Start: 11-11-2024 End: 11-11-2024 Bamboo flowsheet Carlos Sanchez MD Work Phone: [facility] Start: 11-11-2024 End: 11-11-2024 Office outpatient visit 25 minutes Carlos Sanchez MD Work Phone: [facility] Comment on above: Intractable chronic migraine without aura and without status migrainosus (CMS/HCC) (Primary Dx) Start: 11-11-2024 End: 11-11-2024 ambulatory CARLOS SANCHEZ Not Available Start: 11-09-2024 End: 11-10-2024 Telephone encounter [facility] Start: 11-05-2024 End: 11-05-2024 ambulatory [facility] Start: 11-03-2024 ambulatory [facility] Start: 10-26-2024 End: 10-26-2024 ambulatory [facility] Start: 10-26-2024 End: 10-26-2024 Office outpatient visit 25 minutes [facility] Work Phone: [facility] Comment on above: Peripheral arterial disease ([facility]) (Primary Dx); Anxiety; Medication monitoring encounter; Contusion of right hip, initial encounter; Candidal intertrigo; Overweight Start: 10-26-2024 End: 10-26-2024 ambulatory [facility] Start: 10-22-2024 End: 10-27-2024 Ref[facility] Work Phone: [facility] Comment on above: Type 2 diabetes mouna itus with hyperglycemia, without long-term current use of insulin ([facility]) Lumbar radiculopathy (Primary Dx); PHN (postherpetic neuralgia) (CMS/HCC); Diabetic peripheral neuropathy (CMS/HCC) Start: 10-22-2024 End: 10-27-2024 Telephone encounter Simi Petty CMA [facility] Comment on above: Med Refill Start: 10-16-2024 End: 10-16-2024 Refill Robert Worthyng DO Work Phone: [facility] Start: 10-16-2024 End: 10-16-2024 Refill Robertmarcos Carmenlong DO Work Phone: [facility] Start: 10-12-2024 End: 10-12-2024 ambulatory [facility] Work Phone: Start: 10-12-2024 End: 10-12-2024 Patient encounter procedure [facility] Work Phone: Start: 10-09-2024 End: 10-09-2024 Orders Only Robertmarcos Carmenlong DO Work Phone: [facility] Comment on above: Pain in left leg (Pr imary Dx) Start: 09-29-2024 End: 09-29-2024 Clinisync Result Encounter Generic External Data Provider [facility] External Department Unsolicited Start: 09-29-2024 End: 09-29-2024 Clinisync Result Encounter Generic External Data Provider [facility] External Department Unsolicited Start: 09-28-2024 ambulatory [facility] Start: 09-24-2024 End: 09-29-2024 Telephone encounter Shmuel Levine PTA [facility] Comment on above: Severe Migraine; FU Start: 09-23-2024 End: 09-23-2024 Orders Only Robertmarcos Carmenlong DO Work Phone: [facility] Comment on above: Diabetes mellitus wi thout complication (CMS-HCC) (Primary Dx) Left knee pain, unsp ecified chronicity (Primary Dx); Arthritis of left knee; Chronic pain of left knee Start: 09-22-2024 End: 09-22-2024 ambulatory [facility] Start: 09-19-2024 End: 09-21-2024 Refill Robert Giron DO Work Phone: [facility] Comment on above: Type 2 diabetes mouna itus with hyperglycemia, without long-term current use of insulin ([facility]) Start: 09-18-2024 End: 09-19-2024 Refill Robert Giron DO Work Phone: [facility] - Family Medicine Start: 09-17-2024 End: 09-17-2024 ambulatory Gricelda Hammond PT [facility] Comment on above: Left knee pain, unsp ecified chronicity (Primary Dx); Arthritis of left knee; Chronic pain of left knee Start: 09-16-2024 End: 09-16-2024 Bamboo flowsheet Nikki Veronica Vergara FOUR SLIDE OPERATOR Work Phone: [facility] NE[facility] Start: 09-16-2024 End: 09-16-2024 Bamboo flowsheet Nikki C Windnagel FOUR SLIDE OPERATOR Work Phone: [facility] Start: 09-16-2024 End: 09-16-2024 Office outpatient visit 25 minutes Nkiki C Glennynagel FOUR SLIDE OPERATOR Work Phone: [facility] Comment on above: CELINE (obstructive sle ep apnea) (Primary Dx); Chronic migraine without aura without status migrainosus, not intractable ([facility]); Cognitive decline; Lumbar radiculopathy Start: 09-16-2024 End: 09-16-2024 ambulatory NIKKI C GLENNYNAGEL Not Available Start: 09-15-2024 End: 09-15-2024 ambulatory ROBERT GIRON [facility] Start: 09-15-2024 End: 09-15-2024 Office outpatient visit 25 minutes Robert Giron DO Work Phone: [facility] - Family Medicine Comment on above: Anxiety (Primary Dx) ; Diabetes mellitus without complication ([facility]-HCC); Essential hypertension; Mixed hyperlipidemia; Medication management; Chronic obstructive pulmonary disease, unspecified COPD type ([facility]-HCC); Abnormality of gait and mobility; Current smoker Start: 09-15-2024 End: 09-15-2024 ambulatory ROBERT G [facility] Start: 09-15-2024 End: 09-15-2024 Telephone encounter Shmuel Memo AERIAL PLANTING AND CULTIVATION MANAGER [facility] Comment on above: CX PT 09/15 Start: 09-10-2024 End: 09-10-2024 Bamboo flowsheet Shmuel Levine AERIAL PLANTING AND CULTIVATION MANAGER [facility] Start: 09-10-2024 End: 09-10-2024 Bamboo flowsheet Shmuel Levine AERIAL PLANTING AND CULTIVATION MANAGER [facility] Start: 09-10-2024 End: 09-10-2024 ambulatory Shmuel Levine AERIAL PLANTING AND CULTIVATION MANAGER [facility] Comment on above: Left knee pain, unsp ecified chronicity (Primary Dx) Start: 09-04-2024 End: 09-04-2024 Telephone encounter Carlotta Melton AERIAL PLANTING AND CULTIVATION MANAGER [facility] Comment on above: re: PT today Start: 09-03-2024 End: 09-03-2024 Telephone encounter Gricelda Hammond PT [facility] Comment on above: CX PT / RS for 09/04 Start: 09-01-2024 End: 09-01-2024 Bamboo flowsheet Shmuel Levine AERIAL PLANTING AND CULTIVATION MANAGER [facility] Start: 09-01-2024 End: 09-01-2024 Bamboo flowsheet Shmuel Levine AERIAL PLANTING AND CULTIVATION MANAGER [facility] Start: 09-01-2024 End: 09-01-2024 ambulatory Shmuel Levine AERIAL PLANTING AND CULTIVATION MANAGER [facility] Comment on above: Left knee pain, unsp ecified chronicity (Primary Dx) Start: 08-28-2024 End: 08-28-2024 Bamboo flowsheet Gricelda Hammond PT [facility] Start: 08-28-2024 End: 08-28-2024 Leodanboo flowsheet Gricelda Hammond PT [facility] Start: 08-28-2024 End: 08-28-2024 ambulatory Gricelda Hammond PT [facility] Comment on above: Left knee pain, unsp ecified chronicity (Primary Dx) Start: 08-26-2024 End: 08-26-2024 ambulatory XXXX NONE Facility:[facility] Start: 08-26-2024 End: 08-26-2024 Patient encounter procedure Cady Alva [facility] Start: 08-21-2024 End: 08-21-2024 Orders Only Robert Giron DO Work Phone: [facility] - Family Medicine Comment on above: Diabetes mellitus wi thout complication ([facility]-HCC) (Primary Dx) Start: 08-19-2024 End: 08-19-2024 ambulatory [facility] Start: 08-17-2024 End: 08-17-2024 ambulatory [facility] Start: 08-13-2024 End: 08-13-2024 Patient encounter procedure Kehinde Davalos [facility] Start: 08-13-2024 End: 08-13-2024 Refill Robert G Bree DO Work Phone: [facility] Start: 08-10-2024 End: 08-10-2024 [employer] Carlos Sanchez MD Work Phone: [facility] Start: 08-10-2024 End: 08-10-2024 [employer] Carlos Sanchez MD Work Phone: [facility] Start: 08-10-2024 End: 08-10-2024 Office outpatient visit 25 minutes Carlos Sanchez MD Work Phone: [facility] NEUR Comment on above: Attention deficit hy peractivity disorder (ADHD), predominantly inattentive type (CMS/HCC) (Primary Dx); Intractable chronic migraine without aura and without status migrainosus (CMS/HCC) Start: 08-10-2024 End: 08-10-2024 Orders Only Jena Vaz NP Work Phone: [facility] NE[facility]O 210 Comment on above: Attention deficit hy peractivity disorder (ADHD), predominantly inattentive type (CMS/HCC) (Primary Dx); Fibromyalgia; Anxiety Start: 08-04-2024 End: 08-04-2024 Telephone encounter Carlos Sanchez MD Work Phone: [facility] NE[facility]O 210 Start: 08-03-2024 End: 08-03-2024 ambulatory [facility] Start: 07-29-2024 End: 07-29-2024 Bamboo flowsheet David Wilfredo DO Work Phone: [facility] B[facility] OB Start: 07-29-2024 End: 08-06-2024 Bamboo flowsheet David Wilfredo DO Work Phone: [facility] Start: 07-29-2024 End: 08-06-2024 Clinisync Result Encounter David Wilfredo DO Work Phone: [facility] Unsolicited Start: 07-29-2024 End: 07-29-2024 Patient encounter procedure David Wilfredo DO Work Phone: [facility] Start: 07-29-2024 End: 07-29-2024 Periodic preventive med est patient 40-64yrs David Wilfredo DO Work Phone: [facility] Comment on above: Well woman exam with routine gynecological exam; H/O: hysterectomy; Osteoporosis, post-menopausal (CMS/HCC) Start: 07-29-2024 End: 07-29-2024 ambulatory DAVID WILFREDO Not Available Start: 07-27-2024 End: 07-27-2024 ambulatory [facility] Start: 07-07-2024 End: 07-07-2024 Emergency department patient visit [facility] Start: 06-28-2024 End: 06-28-2024 Emergency department patient visit [facility] Start: 06-18-2024 End: 06-18-2024 Office outpatient visit 15 minutes Martin BLOOMM Work Phone: [facility] PODIAT[facility] Comment on above: 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); Diabetes 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 polyneuropathy, with long-term current use of insulin ([facility]) Start: 06-18-2024 End: 06-18-2024 ambulatory MARTIN ARANGO Not Available Start: 06-18-2024 End: 06-18-2024 Bamboo flowsheet Martin Arango DPM Work Phone: [facility] Start: 06-18-2024 End: 06-18-2024 Bamboo flowsheet Martin Arango DPM Work Phone: [facility] Start: 06-16-2024 ambulatory [facility] Start: 06-15-2024 End: 06-15-2024 Telephone encounter Karlos Mace DO Work Phone: [facility] ORTHO Comment on above: L knee pain Start: 06-15-2024 End: 06-15-2024 ambulatory [facility] Start: 06-11-2024 End: 06-11-2024 ambulatory WILLIAM CALVIN [facility] Start: 06-09-2024 End: 06-09-2024 Telephone encounter Pastora Alcantara DO Work Phone: [facility] ORTHO Comment on above: pain Start: 06-05-2024 End: 06-05-2024 ambulatory [facility] Start: 06-05-2024 End: 06-05-2024 ambulatory [facility] Start: 05-28-2024 End: 05-28-2024 Telephone encounter Amaris Huynh MA [facility] Start: 05-20-2024 End: 05-20-2024 ambulatory ALEXSANDRA [facility] Start: 05-18-2024 End: 05-18-2024 ambulatory [facility] Start: 05-14-2024 End: 05-14-2024 Bamboo flowsheet Martin Arango DPM Work Phone: [facility] CI PODIATRY Start: 05-14-2024 End: 05-14-2024 Bamboo flowsheet Martin Arango DPM Work Phone: [facility] Start: 05-14-2024 End: 05-14-2024 Office outpatient visit 15 minutes Martin Arango DPM Work Phone: [facility] PODIATRY Comment on above: Capsulitis of metata rsophalangeal (MTP) joint of right foot (Primary Dx); Paronychia, toe, right; Paronychia of toe of left foot; Diabetes 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 polyneuropathy, with long-term current use of insulin ([facility]) Start: 05-14-2024 End: 05-14-2024 ambulatory MARTIN ARANGO Not Available Start: 05-11-2024 End: 05-11-2024 Telephone encounter Carlos Sanchez MD Work Phone: [facility] Start: 05-05-2024 End: 05-15-2024 Telephone encounter Pastora Alcantara DO Work Phone: [facility] FB ORTHOPAEDICS Start: 05-04-2024 End: 05-04-2024 ambulatory [facility] Start: 04-30-2024 End: 04-30-2024 ambulatory [facility] Start: 04-27-2024 End: 04-27-2024 ambulatory CARLOS SANCHEZ Not Available Start: 04-27-2024 End: 04-27-2024 Bamboo flowshemalatha Sanchez MD Work Phone: [facility] BM NEUROLOGY Start: 04-27-2024 End: 04-27-2024 Manju flowsheet Carlos Sanchez MD Work Phone: [facility] Start: 04-27-2024 End: 04-27-2024 Office outpatient visit 25 minutes Carlos Sanchez MD Work Phone: [facility] SWS NEUR Comment on above: Nausea and vomiting, unspecified vomiting type (Primary Dx); Intractable chronic migraine without aura and without status migrainosus ([facility]/HCC); Diabetic peripheral neuropathy ([facility]/HCC) Start: 04-23-2024 End: 04-23-2024 Bamboo flowsheet Martin Arango DPM Work Phone: [facility] Start: 04-23-2024 End: 04-23-2024 Bamboo flowsheet Martin Arango DPM Work Phone: [facility] Start: 04-23-2024 End: 04-23-2024 ambulatory MARTIN ARANGO Not Available Start: 04-23-2024 End: 04-23-2024 Office outpatient visit 15 minutes Martin Arango DPM Work Phone: [facility] PODIATRY Comment on above: Capsulitis of metata rsophalangeal (MTP) joint of right foot (Primary Dx); Paronychia, toe, right; Paronychia of toe of left foot; Toe pain, left; Toe pain, right; Diabetes 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 polyneuropathy, with long-term current use of insulin ([facility]) Start: 04-23-2024 End: 04-23-2024 ambulatory MARTIN ARANGO Not Available Start: 04-21-2024 End: 04-21-2024 Office outpatient visit 15 minutes Pastora Alcantara DO Work Phone: [facility] ORTHOPAEDICS Comment on above: Chronic pain of left knee; Primary osteoarthritis of left knee; Complex tear of medial meniscus of left knee as current injury, initial encounter Start: 04-21-2024 End: 04-21-2024 ambulatory PASTORA ALCANTARA Not Available Start: 04-15-2024 End: 04-15-2024 Bamboo flowshemalatha Coronado PT Work Phone: [facility] Start: 04-15-2024 End: 04-15-2024 Manju Coronado PT Work Phone: [facility] CI PT Start: 04-15-2024 End: 04-15-2024 ambulatory Galo Rosa Florentino PT Work Phone: [facility] PT Comment on above: Arthritis of left kn ee (Primary Dx); Chronic pain of left knee Start: 04-14-2024 End: 04-14-2024 Bamboo flowsheet Pastora Alcantara DO Work Phone: [facility] Start: 04-14-2024 End: 04-14-2024 Bamboo flowsheet Pastora Alcantara DO Work Phone: [facility] Start: 04-14-2024 End: 04-14-2024 Office outpatient visit 15 minutes Pastora Alcantara DO Work Phone: [facility] Comment on above: Left wrist pain (Anastasiia ros Dx); Left knee pain, unspecified chronicity; Ulnar neuropathy at elbow of left upper extremity Start: 04-14-2024 End: 04-14-2024 ambulatory PASTORA ALCANTARA Not Available Start: 04-13-2024 End: 04-13-2024 Bamboo flowsheet Cj Zepeda FOUR SLIDE OPERATOR Work Phone: [facility] ORTHOPAEDICS Start: 04-13-2024 End: 04-13-2024 Bamboo flowsheet Cj Zepeda FOUR SLIDE OPERATOR Work Phone: [facility] Start: 04-13-2024 End: 04-13-2024 Office outpatient visit 15 minutes Cj Zepeda FOUR SLIDE OPERATOR Work Phone: [facility] ORTHOPAEDICS Comment on above: Left elbow pain (Anastasiia ros Dx); Left wrist pain; Ulnar neuropathy at elbow of left upper extremity; Carpal tunnel syndrome of left wrist Start: 04-13-2024 End: 04-13-2024 ambulatory CJ ZEPEDA Not Available Start: 04-09-2024 End: 04-09-2024 Office outpatient visit 15 minutes Martin Arango DPM Work Phone: [facility] PODIATRY Comment on above: Toe pain, left (Prim patricia Dx); Toe pain, right; Capsulitis of metatarsophalangeal (MTP) joint of right foot; Paronychia, toe, right; Paronychia of toe of left foot Start: 04-09-2024 End: 04-09-2024 ambulatory MARTIN ARANGO Not Available Start: 04-08-2024 End: 04-08-2024 Bamboo flowsheet Cj Talbot Kosebastian FOUR SLIDE OPERATOR Work Phone: [facility] Start: 04-08-2024 End: 04-08-2024 Bamboo flowsheet Cj Zepeda FOUR SLIDE OPERATOR Work Phone: [facility] Start: 04-08-2024 End: 04-08-2024 Office outpatient new 30 minutes Cj Talbot Katelyn FOUR SLIDE OPERATOR Work Phone: [facility] CI ORTHOPAEDICS Comment on above: Left knee pain, unsp ecified chronicity (Primary Dx); Arthritis of left knee Start: 04-08-2024 End: 04-08-2024 ambulatory CJ ZEPEDA Not Available Start: 04-02-2024 End: 04-02-2024 ambulatory MARTIN ARANGO Not Available Start: 03-31-2024 End: 03-31-2024 ambulatory DO Robert Furlong Work Phone: [facility] Work Phone: Start: 03-31-2024 End: 03-31-2024 Patient encounter procedure DO Robert Furlong Work Phone: [facility] [address] Work Phone: Start: 03-27-2024 End: 03-27-2024 ambulatory [facility] Start: 03-20-2024 End: 03-20-2024 ambulatory ANA CORONADO Not Available Start: 03-17-2024 End: 03-17-2024 ambulatory ANA CORONADO Not Available Start: 03-05-2024 End: 03-05-2024 ambulatory ROBERT FURLONG Facility:[facility] Start: 03-05-2024 End: 03-05-2024 Pain Management Andrew Eid [facility] Start: 02-26-2024 Encounter for other preprocedural examination REYES BORGES [facility] Start: 02-26-2024 End: 02-26-2024 ambulatory KURT Talbot ADELA [facility] Start: 01-31-2024 End: 02-01-2024 Emergency department patient visit KAMILLEGordy JACKSON [facility] Start: 01-30-2024 End: 01-30-2024 Patient encounter procedure En Jerome Nella [facility] Start: 01-23-2024 End: 01-23-2024 ambulatory [facility] Start: 01-20-2024 End: 01-20-2024 ambulatory [facility] Start: 01-15-2024 End: 01-15-2024 Pain Management Cady Alva [facility] Start: 01-01-2024 End: 01-01-2024 Pain Management Cady Alva [facility] Start: 12-31-2023 End: 12-31-2023 Patient encounter procedure SHERI JIMENES [facility] Start: 12-11-2023 End: 12-11-2023 Pain Management Andrew Eid [facility] Start: 11-06-2023 End: 11-06-2023 Pain Management Cady Alva [facility] Start: 09-27-2023 Telephone encounter Carlos Sanchez MD Work Phone: [facility] SWS NEUR Start: 09-26-2023 End: 09-26-2023 Office outpatient visit 25 minutes Martin Arango DPM Work Phone: [facility] Comment on above: Hav (hallux abducto valgus), right (Primary Dx); Plantar fasciitis; Diabetes 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 polyneuropathy, with long-term current use of insulin (CMS/[facility]); Contracture of right ankle; Bone spur of right foot Start: 09-20-2023 Refill Carlos moreira MD Work Phone: [facility] H NEURO 210 Comment on above: Chronic bilateral lo w back pain with bilateral sciatica; Diabetic peripheral neuropathy (CMS/HCC); Lumbar radiculopathy Start: 09-19-2023 End: 09-19-2023 ambulatory Valarie Yael Other [employer] Other Start: 09-19-2023 Telephone encounter Valarie Yael [facility] Start: 09-17-2023 End: 09-17-2023 Patient encounter procedure SHERI JIMENES [facility] Start: 08-27-2023 End: 08-27-2023 ambulatory Valarie Yael Other [employer] Other Start: 08-27-2023 Office outpatient vi sit 25 minutes Valarie Yael [facility] Start: 07-25-2023 End: 07-25-2023 Patient encounter procedure Elliott SOLIS [facility] Start: 07-05-2023 End: 07-05-2023 Patient encounter procedure Cady CALIX [facility] Start: 06-24-2023 End: 06-25-2023 ambulatory CARLOS SANCHEZ [facility] Start: 06-14-2023 End: 06-14-2023 Patient encounter procedure Cady CALIX [facility] Start: 05-22-2023 End: 05-22-2023 Patient encounter procedure Inessa Grajeda [facility] Start: 05-20-2023 End: 05-20-2023 Patient encounter procedure Cady CALIX [facility] Start: 04-04-2023 End: 04-04-2023 ambulatory Valarie Yael Other [employer] Other Start: 04-04-2023 Telephone encounter Valarie Yael [facility] Start: 04-03-2023 End: 04-03-2023 ambulatory DO Robert Furlong Work Phone: [facility] Work Phone: Start: 04-03-2023 End: 04-03-2023 Patient encounter procedure DO Robert Furlong Work Phone: [facility] [address] Work Phone: Start: 02-26-2023 End: 02-26-2023 ambulatory Valarei Yael Other [employer] Other Start: 02-26-2023 Office outpatient vi sit 25 minutes Valarie Yael [facility] Start: 01-17-2023 End: 01-17-2023 Patient encounter procedure Zulema FITCH [facility] Start: 12-22-2022 End: 01-16-[address] DOCTOR GALLO Facility:[facility] Start: 12-21-2022 End: 12-22-[address] DOCTOR GALLO Facility:[facility] Start: 11-29-2022 End: 11-29-[address] ROBERT GIRON Facility:[facility] Start: 11-26-2022 End: 11-26-[address] ROBERT GIRON Facility:[facility] Start: 11-21-2022 End: 11-21-2022 Admission to same day surgery center Martin Arango [facility] Start: 10-30-2022 End: 10-30-2022 Patient encounter procedure Elliott Solis [facility] Start: 10-29-2022 End: 10-29-2022 Patient encounter procedure Inessa Grajeda [facility] Start: 10-20-2022 End: 10-20-2022 Emergency department patient visit Santos Landry [facility] Start: 10-12-2022 End: 10-12-2022 Emergency department patient visit Santos Landry [facility] Start: 10-02-2022 End: 10-02-2022 Patient encounter procedure Inessa Grajeda [facility] Start: 09-14-2022 End: 11-01-2022 Pre-admission assessment Zulema FITCH [facility] Start: 09-10-2022 End: 09-11-[address] DAVID VILLALOBOS . Facility:[facility] Start: 09-06-2022 End: 09-06-2022 Patient encounter procedure Zulema FITCH [facility] Start: 09-04-2022 End: 09-04-2022 ambulatory Valarie Yael Other [employer] Other Start: 09-04-2022 Telephone encounter Valarie Yael [facility] Start: 08-10-2022 ambulatory ELIUD JAJA Facility :[facility] Start: 08-06-2022 End: 08-07-[address] DAVID VILLALOBOS . Facility:[facility] Start: 07-05-2022 End: 07-05-2022 ambulatory Valarie Yael Other [employer] Other Start: 07-05-2022 Office outpatient vi sit 25 minutes Valarie Yael [facility] Start: 07-04-2022 End: 07-05-2022 ambulatory VALARIE YAEL Facility:[facility] Start: 07-03-2022 End: 07-03-[address] SOLO CHA . Facility:[facility] Start: 06-26-2022 End: 11-28-2022 Recurring Zulema FITCH [facility] Start: 06-08-2022 End: 06-09-[address] DOCTOR GALLO Facility:[facility] Start: 05-15-2022 End: 05-15-2022 Patient encounter procedure Cady CALIX [facility] Start: 05-09-2022 End: 09-09-2022 Recurring Zulema FITCH [facility] Start: 05-09-2022 End: 06-19-2022 Pre-admission assessment Zulema FITCH [facility] Start: 04-30-2022 End: 05-01-[address] ROBERT GIRON Facility:[facility] Start: 04-09-2022 End: 05-02-2022 Pre-admission assessment Donaldo PEARSON [facility] Start: 04-06-2022 End: 04-07-2022 ambulatory ELIUD JAJA Facility:[facility] Start: 04-01-2022 End: 04-01-2022 ambulatory JAMAR SRIVASTAVA . Facility:[facility] Start: 03-28-2022 End: 03-29-[address] DOCTOR GALLO Facility:[facility] Start: 03-20-2022 End: 03-20-2022 Patient encounter procedure Elliott Solis [facility] Start: 03-13-2022 End: 03-13-2022 ambulatory JAMAR SRIVASTAVA . Facility:[facility] Start: 03-06-2022 End: 09-07-2022 Pre-admission assessment Elliott Solis [facility] Start: 03-06-2022 End: 03-06-2022 Patient encounter procedure Cady CALIX [facility] Start: 02-08-2022 End: 06-20-2022 Recurring Poole PATRICIOAM [facility] Start: 02-08-2022 End: 02-09-2022 Pre-admission assessment Poole SALAM [facility] Start: 02-01-2022 End: 02-01-2022 Patient encounter procedure Poole SALAM [facility] Start: 01-11-2022 End: 05-02-2022 Recurring Poole SALAM [facility] Start: 01-11-2022 End: 01-11-2022 Patient encounter procedure Poole SALAM [facility] Start: 12-20-2021 End: 03-22-2022 Recurring Zulema FITCH [facility] Start: 12-11-2021 End: 12-11-2021 Patient encounter procedure Donaldo R LILI [facility] Start: 11-21-2021 End: 11-21-2021 Patient encounter procedure Inessa Jerome Nicci [facility] Start: 10-12-2021 End: 01-30-2022 Recurring Martin Arango [facility] Start: 04-19-2021 End: 04-19-2021 Subsequent hospital visit by physician Joann Angela Work Phone: Radiology Comment on above: Pain [R52] Right elbow pain [M2 5.521] Procedures Date Procedure Procedure Detail Performing Clinician Start: 04-13-2025 CT of lungs Robert Giron DO Work Phone: Start: 03-16-2025 Drug tst prsmv instrmnt chem analyzers pr date Robert Worthyng DO Work Phone: Start: 03-16-2025 Hemoglobin glycosylated a1c Robert Carmen long DO Work Phone: Start: 03-16-2025 Adult depression screening assessment Robert Furlong DO Work Phone: Start: 03-10-2025 Follow-up visit Follow-up MAYA LYNN Start: 02-24-2025 Adult depression screening assessment Robert Carmenlong DO Work Phone: Start: 02-04-2025 Radex ankle complete minimum 3 views Martin Arango DPM Work Phone: Start: 12-25-2024 Adult depression screening assessment Robert Giron DO Work Phone: Start: 12-15-2024 Adult depression screening assessment Reyes Borges PA Work Phone: Start: 12-15-2024 Microalbumin [Mass/volume] in Urine by Test strip Robert Giron DO Work Phone: Start: 10-26-2024 Adult depression screening assessment Robert Giron DO Work Phone: Start: 09-29-2024 MM TOMOSYNTHESIS SCREENING BI Generic Ex ternal Data Provider Start: 09-29-2024 Mammography Generic Provider Start: 08-03-2024 Decompression of median nerve Cady barrios Start: 08-03-2024 Ulnar carpal complex ligament (body structure) Cady Alva Start: 07-29-2024 IGP,APTIMA HPV,AGE GDLN David Villalobos DO Work Phone: Start: 07-29-2024 Microscopic observation [Identifier] in Cervix by Cyto stain Gricelda Hammond PT Start: 05-04-2024 Cyclic citrullinated peptide antibody REYES BORGES Comment on above: Result Comment: Interpretation-------- <3 Negative >=3 Positive Performed By: #### 1 [id number], CBC, 1988-5, 3016-3, 60979-2, 89880-8, [id number] ####[facility] ([id number])[address] [place] [address], [address] [place] [address] Start: 04-30-2024 Adult depression screening assessment Robert Giron DO Work Phone: Start: 04-08-2024 History of decompression of median nerve History of carpal tunnel surgery Cj Apling FOUR SLIDE OPERATOR Work Phone: Start: 03-31-2024 CT of lungs DO Robert Giron Work Phone: Start: 12-11-2023 Epidural injection of lumbar spine using fluoroscopic guidance Cady Alva Comment on above: L4-L5 no relief, made worse Start: 09-27-2023 Mammography Cj Zepeda NP Work Phone: Start: 04-03-2023 CT of lungs DO Robert Giron Work Phone: Start: 01-21-2023 Colonoscopy Robert Giron DO Work Phone: Start: 01-17-2023 SURGICAL PATHOLOGY Not In System Ref Prov Start: 01-17-2023 Colonoscopy Cj Zepeda NP Work Phone: Start: 01-17-2023 Colonoscopy Zulema FITCH Start: 11-21-2022 Hammer toe (disorder) Martin Arango Start: 11-21-2022 Metatarsal bone structure (body structure) Martin Arango Start: 10-22-2022 Microalbumin [Mass/volume] in Urine by Test strip Robert Giron DO Work Phone: Start: 03-29-2022 Esophagogastroduodenoscopy Zulema FITCH Comment on above: esophageal dilation, small gastric bezoa r Start: 11-08-2021 Peroneal tendon (body structure) Inessa Wallis Comment on above: right peroneal tendon repair with synove ctomy Start: 06-26-2021 Esophagogastroduodenoscopy Inessa clark Comment on above: dilation Start: 05-16-2021 Urodynamic studies Inessa Grajeda Start: 04-19-2021 End: 09-01-2021 Radex shoulder complete minimum 2 views Randi Farrell DO Work Phone: Start: 03-14-2020 Colonoscopy Xr 1 Work Phone: Start: 03-14-2020 Colonoscopy Inessa Grajeda Start: 03-03-2020 Catheterization of left heart Inessa keohler Comment on above: diagnostic Start: 10-22-2018 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 Inessa Grajeda Start: 06-22-2015 right instep plantar fasciotomy with division of muscle and fascia Inessa Grajeda Appendectomy Inessa Grajeda Arthroscopy of knee Inessa Coffeymetz Breast surgery (qualifier value) Inessa Grajeda Comment on above: x 2 - removal of milk ducts Cholecystectomy Inessa Carmenme tz Colonoscopy Inessa Gatesz Colonoscopy Poole SALAM Cystopexy Inessa Gatesz Decompression of median nerve Inessa Gatesz Comment on above: x 2 Decompression of ulnar nerve Inessa Gatesz Comment on above: x 2 Esophagogastroduodenoscopy B dejah Grajeda Esophagogastroduodenoscopy M [facility] [employer] Comment on above: Antral erosions Excision of ganglion cyst Be th Nicci Extracorporeal shock wave lithotripsy of calculus of kidney Inessa Grajeda H/O: hysterectomy H/O: hysterectomy David Wilfredo DO Work Phone: History of decompres anna of median nerve History of carpal tunnel surgery DO Robert Giron Work Phone: Comment on above: 1991 Hysterectomy Inessarm Grajeda ingrown toenail removal 10 M [employer] Comment on above: x3 ingrown toenail removal 11 M [employer] Comment on above: x3 ingrown toenail removal 12 A [facility] Comment on above: x3 ingrown toenail removal [...] Screening for malignant neoplasm of colon Colonoscopy [facility] Start: 01-17-2033 Screening for malignant neoplasm of colon [facility] Start: 07-29-2029 Screening for malignant neoplasm of cervix [facility] Start: 03-16-2026 Adult BMI Screening Adult BMI Screening [facility] Start: 03-16-2026 Depression Screening Depression Screening [facility] Start: 03-16-2026 Tobacco Screening Tobacco Screening [facility] Start: 03-10-2026 Adult BMI Screening Adult BMI Screening [facility] Start: 03-10-2026 Tobacco Screening Tobacco Screening [facility] Start: 02-24-2026 Adult BMI Screening Adult BMI Screening [facility] Start: 02-24-2026 Depression Screening Depression Screening [facility] Start: 02-24-2026 Tobacco Screening Tobacco Screening [facility] Start: 01-15-2026 Statin Use: Cardiovascular Statin Use: Cardiovascular [facility] Start: 01-15-2026 Statin Use: Diabetic Statin Use: Diabetic [facility] Start: 12-25-2025 Adult BMI Screening Adult BMI Screening [facility] Start: 12-25-2025 Depression Screening Depression Screening [facility] Start: 12-25-2025 Tobacco Screening Tobacco Screening [facility] Start: 12-15-2025 Adult BMI Screening Adult BMI Screening [facility] Start: 12-15-2025 Depression Screening Depression Screening [facility] Start: 12-15-2025 Tobacco Screening Tobacco Screening [facility] Start: 12-15-2025 Urine screening for protein Urine Microalbumin [facility] Start: 10-26-2025 Adult BMI Screening Adult BMI Screening [facility] Start: 10-26-2025 Depression Screening Depression Screening [facility] Start: 10-26-2025 Tobacco Screening Tobacco Screening [facility] Start: 09-29-2025 Screening for malignant neoplasm of breast Mammogram [facility] Start: 09-15-2025 Adult BMI Screening Adult BMI Screening [facility] Start: 09-15-2025 Tobacco Screening Tobacco Screening [facility] Start: 07-27-2025 Tobacco Screening Tobacco Screening [facility] Start: 07-07-2025 Adult BMI Screening Adult BMI Screening [facility] Start: 06-17-2025 End: 06-17-2025 Patient encounter procedure 06/17/2025 1:30 PM EDT Office Visit [facility] [address] [place] [address] Robert Giron, DO [address], [place] [address] [facility] Start: 06-10-2025 End: 06-10-2025 Patient encounter procedure [facility] Start: 04-30-2025 Depression Screening Depression Screening [facility] Start: 04-19-2025 Influenza vaccination [facility] Start: 03-16-2025 End: 03-16-2025 Patient encounter procedure 03/16/2025 2:00 PM EDT Office Visit [facility] [address] [place] [address] [facility] [address], [place] [address] [facility] Start: 03-10-2025 End: 03-10-2025 Patient encounter procedure 03/10/2025 9:30 AM EDT Office Visit [facility] [address] [place] [address] Maya Lynn, WAREHOUSER-POLYMERIZATION ENGINEER [address] [place] [address] Polyp of colon, unspecified part of colon, unspecified type [facility] Comment on above: Polyp of colon, unspecified part of colo n, unspecified type Start: 03-09-2025 End: 03-09-2025 Patient encounter procedure [facility] Comment on above: Arrived Start: 03-04-2025 End: 03-04-2025 Patient encounter procedure [facility] Comment on above: Mild ankle sprain, right, initial encoun ter (Primary Dx); Paronychia, toe, right; Diabetes 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 polyneuropathy, with long-term current use of insulin (HCC) Start: 02-25-2025 End: 02-25-2025 Patient encounter procedure [facility] Comment on above: Arrived Start: 02-24-2025 End: 02-24-2025 ambulatory [facility] Comment on above: Arrived Start: 02-22-2025 End: 02-22-2025 ambulatory [facility] Comment on above: Arrived Start: 02-17-2025 End: 02-17-2025 ambulatory 02/17/2025 12:00 PM EDT Treatment [facility] [address] [facility] [address] [place] [phone] Andria Carter PTA [facility] Start: 02-15-2025 End: 02-15-2025 ambulatory [facility] Comment on above: Arrived Start: 02-11-2025 End: 02-11-2025 ambulatory [facility] Start: 02-10-2025 End: 02-10-2025 Patient encounter procedure 02/10/2025 1:20 PM EDT Office Visit [facility] [address] [address] Carlos Sanchez MD 60[address] [facility] [address] [address] [facility] Start: 02-08-2025 End: 02-08-2025 ambulatory 02/08/2025 2:00 PM EDT Treatment [facility] [address] [place] [place] [address] Andria Carter PTA [facility] Start: 02-04-2025 End: 02-04-2025 ambulatory 02/04/2025 2:00 PM EDT Treatment [facility] [address] [facility] [address] [place] [address] Andria Carter PTA [facility] Start: 02-04-2025 End: 02-04-2025 Patient encounter procedure [facility] Comment on above: Mild ankle sprain, right, initial encoun ter (Primary Dx); Paronychia, toe, right; Diabetes 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 polyneuropathy, with long-term current use of insulin (HCC) Start: 02-02-2025 End: 02-02-2025 ambulatory 02/02/2025 2:00 PM EDT Treatment [facility] [address] [facility] [address] [place] [address] Gricelda Hammond, PT [facility] Start: 01-29-2025 End: 01-29-2025 ambulatory 01/29/2025 1:00 PM EDT Treatment [facility] [address] [facility] [address] [place] [address] Andria Carter, AERIAL PLANTING AND CULTIVATION MANAGER [facility] Start: 01-26-2025 End: 01-26-2025 Patient encounter procedure 01/26/2025 12:45 PM EDT Office Visit [facility] [address] [place] [phone] Reyes Borges, PA [address] [place] [address] [facility] Start: 01-25-2025 End: 01-25-2025 ambulatory 01/25/2025 2:00 PM EDT Evaluation [facility] [address] [facility] [address] [place] [address] Gricelda Hammond, PT [facility] Start: 01-14-2025 End: 01-14-2025 Patient encounter procedure 01/14/2025 4:20 PM EDT Office Visit [facility] [address] [place] [phone] Martin Arango DPM 3006 [facility] [address] [place] [address] Mild ankle sprain, right, initial encounter (Primary Dx); Paronychia, toe, right [facility] Comment on above: Mild ankle sprain, right, initial encoun ter (Primary Dx); Paronychia, toe, right Start: 01-08-2025 End: 01-08-2025 ambulatory 01/08/2025 1:30 PM EDT Evaluation [facility] [address] [place] [address] [place] [address] Gricelda Hammond, PT [facility] Start: 01-07-2025 End: 01-07-2025 Patient encounter procedure 01/07/2025 3:40 PM EDT Office Visit [facility] [address] [place] [place] [address] Martin Arango DPM [address] [address] [facility] Start: 12-25-2024 End: 12-25-2024 Patient encounter procedure 12/25/2024 9:00 AM EDT Office Visit [facility] [address] [place] [phone] Robert Giron DO [address], [facility] [place] [address] [facility] Start: 12-17-2024 End: 12-17-2024 Patient encounter procedure 12/17/2024 1:10 PM EDT Office Visit [facility] [address] [facility] [address] [place] [address] Martin Arango DPM [address] [address] Downey neuroma, right (Primary Dx); Acquired deformity of right toe; Paronychia, toe, right; Diabetes 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 polyneuropathy, with long-term current use of insulin ([facility]) [facility] Comment on above: Downey neuroma, right (Primary Dx); Acquired deformity of right toe; Paronychia, toe, right; Diabetes 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 polyneuropathy, with long-term current use of insulin (CMS/[facility]) Start: 12-15-2024 End: 12-15-2024 Patient encounter procedure 12/15/2024 3:30 PM EDT Office Visit [facility] [address] [place] [address] Robert Giron DO [address] [facility], [facility] [place] [address] [facility] Start: 12-14-2024 End: 12-14-2024 Patient encounter procedure 12/14/2024 1:20 PM EDT Office Visit [facility] [address] [facility] [address] [place] [address] Carlos Sanchez MD 9718 [facility] [address] [id number] [facility] Start: 12-03-2024 End: 12-03-2024 Patient encounter procedure [facility] Comment on above: Downey neuroma, right (Primary Dx); Diabetes 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 polyneuropathy, with long-term current use of insulin ([facility]); Acquired deformity of right toe Start: 11-19-2024 End: 11-19-2024 Patient encounter procedure [facility] Comment on above: Acquired deformity of right toe (Primary Dx); Diabetes 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 polyneuropathy, with long-term current use of insulin (CMS/HCC) Start: 11-11-2024 End: 11-11-2024 Patient encounter procedure [facility] Comment on above: Arrived Start: 10-29-2024 End: 10-29-2024 Patient encounter procedure 10/29/2024 4:00 PM EDT Appointment [facility] [address] [place] [phone] Robert Giron, [address] [place] [address] [facility] Start: 10-26-2024 End: 10-26-2024 Patient encounter procedure 10/26/2024 3:30 PM EDT Office Visit [facility] [address] [place] [address] Robert Giron, [address], [place] [address] [facility] Start: 10-26-2024 End: 10-26-2025 US.doppler Extremity arteries - bilateral for physiologic artery study Vas art doppler lwr bilat mult lev/PVR Vascular Ultrasound Routine Peripheral arterial disease ([facility]) Expected: 10/26/2024, Expires: 10/26/2025 [facility] Work Phone: Comment on above: Expected: 10/26/2024, Expires: Start: 10-09-2024 End: 10-09-2025 US.doppler Extremity arteries - bilateral for physiologic artery study Vas art doppler lwr bilat mult lev/PVR Vascular Ultrasound Routine Pain in left leg Expected: 10/09/2024, Expires: 10/09/2025 [facility] Work Phone: Comment on above: Expected: 10/09/2024, Expires: Start: 09-30-2024 End: 09-30-2024 Patient encounter procedure 09/30/2024 1:00 PM EST Appointment [facility] [address] [place] [phone] [facility] Start: 09-27-2024 Screening for malignant neoplasm of breast Mammogram [facility] Start: 09-24-2024 End: 09-24-2024 ambulatory [facility] Start: 09-22-2024 End: 09-22-2024 ambulatory 09/22/2024 1:30 PM EST Treatment [facility] [address] [facility] [address] [place] [address] Gricelda Hammond, PT [facility] Start: 09-17-2024 End: 09-17-2024 ambulatory 09/17/2024 12:30 PM EST Treatment [facility] [address] [facility] [address] [place] [address] Gricelda Hammond, PT [facility] Start: [...] - Family Medicine [address] [place] [address] Robert Giron, DO [address], [facility] [address] [facility] Start: 09-15-2024 End: 09-15-2024 ambulatory 09/15/2024 12:30 PM EST Treatment [facility] [address] [facility] [address] [place] [address] Memo, Shmuel, AERIAL PLANTING AND CULTIVATION MANAGER [facility] Start: 09-10-2024 End: 09-10-2024 ambulatory 09/10/2024 12:30 PM EST Treatment [facility] [address] [place] [address] [place] [address] Shmuel Levine, AERIAL PLANTING AND CULTIVATION MANAGER [facility] Start: 09-07-2024 End: 09-07-2024 ambulatory [facility] Start: 09-04-2024 End: 09-04-2024 ambulatory 09/04/2024 2:30 PM EST Treatment [facility] [address] [place] [place] [address] Carlotta Melton, AERIAL PLANTING AND CULTIVATION MANAGER [facility] Start: 09-03-2024 End: 09-03-2024 ambulatory 09/03/2024 12:30 PM EST Treatment [facility] [address] [place] [address] [place] [address] Gricelda Hammond, PT [facility] Start: 09-02-2024 End: 09-02-2024 Patient encounter procedure 09/02/2024 8:10 AM EST Office Visit [facility] [address] [place] [phone] David Villalobos, [address] [facility] [place] [address] [facility] Start: 09-01-2024 End: 09-01-2024 ambulatory [facility] Comment on above: Arrived Start: 08-10-2024 End: 08-10-2024 Patient encounter procedure [facility] Comment on above: Arrived Start: 07-29-2024 End: 07-29-2025 DXA Skeletal system Views for bone density DEXA bone density Imaging Routine Osteoporosis, post-menopausal ([facility]/HCC) Expected: 07/29/2024 (Approximate), Expires: 07/29/2025 [facility] Work Phone: Comment on above: Expected: 07/29/2024 (Approximate), Expi res: 07/29/2025 Start: 07-29-2024 End: 07-29-2024 Patient encounter procedure 07/29/2024 1:30 PM EST Office Visit [facility] [address] [place] [phone] David Villalobos, DO [address] [facility] [address] [place], [place] [phone] Arrived [facility] Comment on above: Arrived Start: 07-27-2024 End: 07-27-2024 Patient encounter procedure 07/27/2024 2:00 PM EST Office Visit [facility] [address] [facility] [address] [place] [address] Carlos Sanchez MD 9[address] [facility] [address] [place] [address] [facility] Start: 07-10-2024 Adult BMI Follow Up Plan Adult BMI Follow Up Plan [facility] Start: 07-08-2024 Diabetic foot examination Diabetic Foot Exam [facility] Start: 07-07-2024 End: 07-07-2024 Patient encounter procedure 07/07/2024 1:00 PM EST Office Visit [facility] [address] [facility] [place] [phone] David Villalobos, DO [address] [facility] [address] [place], [place] [phone] [facility] Start: 06-18-2024 End: 06-18-2024 Patient encounter procedure 06/18/2024 3:00 PM EDT Office Visit [facility] 112 [facility] [address] [place] [address] Martin Arango DPM 3006 [facility] [address] [place] [address] Arrived [facility] Comment on above: Arrived Start: 05-14-2024 End: 05-14-2024 Patient encounter procedure [facility] Comment on above: Capsulitis of metatarsophalangeal (MTP) joint of right foot (Primary Dx); Paronychia, toe, right; Paronychia of toe of left foot; Diabetes 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 polyneuropathy, with long-term current use of insulin ([facility]) Start: 04-27-2024 End: 04-27-2024 Patient encounter procedure 04/27/2024 2:00 PM EDT Office Visit [facility] [address] [facility] [address] [place] [address] Carlos Sanchez MD 7902 [facility] [address] [address] [facility] Start: 04-23-2024 End: 04-23-2024 Professional / ancillary services management 04/23/2024 10:20 AM EDT Ancillary Procedure [facility] 112 [facility] [address] [place] [phone] Arrived [facility] Comment on above: Arrived Start: 04-23-2024 End: 04-23-2024 Patient encounter procedure [facility] Comment on above: Capsulitis of metatarsophalangeal (MTP) joint of right foot (Primary Dx); Paronychia, toe, right; Paronychia of toe of left foot; Toe pain, left; Toe pain, right; Diabetes 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 polyneuropathy, with long-term current use of insulin ([facility]) Start: 04-21-2024 End: 04-21-2024 Patient encounter procedure 04/21/2024 1:00 PM EDT Office Visit [facility] 112 [facility] [address] [place] [phone] Pastora Alcantara DO 112 [facility] 150 [place] [address] [facility] Start: 04-19-2024 Covid-19 Vaccine ( season) Covid-19 Vaccine ( season) [facility] Start: 04-19-2024 Influenza vaccination Influenza Vaccine (#1) [facility] Start: 04-16-2024 End: 04-16-2024 Patient encounter procedure 04/16/2024 1:50 PM EDT Office Visit [facility] [address] [facility] [address] [place] [address] Martin Arango DPM 3006 [facility] [address] [place] [address] [facility] Start: 04-15-2024 End: 04-15-2024 [...] EDT Office Visit [facility] 112 [facility] [address] [place] [address] Martin Arango DPM 3006 [facility] [address] [place] [address] [facility] Start: 04-08-2024 End: 04-08-2024 Patient encounter procedure 04/08/2024 12:30 PM EDT Office Visit [facility] 112 [facility] [address] [place] [address] Cj Zepeda NP 112 [facility] 150 [place] [address] Left knee pain, unspecified chronicity (Primary Dx); [...] [facility] [address] [facility] [address] [place] [address] Carlos Sanchez MD [address] [address] [facility] Start: 10-23-2023 Urine screening for protein Urine Microalbumin [facility] Start: 10-17-2023 End: 10-17-2023 Patient encounter procedure [facility] Start: 10-09-2023 End: 10-09-2023 Patient encounter procedure 10/09/2023 8:30 AM EST Procedure Visit [facility] Martin Arango, DPM [address] [address] [facility] Start: 09-26-2023 End: 09-26-2023 Patient encounter procedure 09/26/2023 3:10 PM EST Office Visit [facility] [address] [place] [phone] Martin Arango DPM [address] [address] [facility] Start: 09-27-2021 Diabetes Screening Diabetes Screening [facility] Start: 03-14-2021 Screening for malignant neoplasm of colon [facility] Start: 2020 Shingrix Vaccine (1 of 2) Shingrix Vaccine (1 of 2) [facility] Start: 2015 Lipid panel Lipid Screening [facility] Start: 2015 Screening for malignant neoplasm of colon [facility] Start: 2010 Screening for malignant neoplasm of breast Mammogram Screening [facility] Start: 2000 Screening for malignant neoplasm of cervix [facility] Start: 1991 Screening for malignant neoplasm of cervix [facility] Start: 1989 DTaP,Tdap and Td Vaccines (1 - Tdap) DTaP,Tdap and Td Vaccines (1 - Tdap) [facility] Start: 1989 Hepatitis B Vaccine (1 of 3 - 19+ 3-dose series) Hepatitis B Vaccine (1 of 3 - 19+ 3-dose series) [facility] Start: 1989 Urine microalbumin profile DTaP,Tdap,Td Vaccine (1 - Tdap) [facility] Start: 1988 Anxiety Screening Anxiety Screening [facility] Start: 1988 Depression Screening Depression Screening [facility] Start: 1988 Hepatitis C screening Hepatitis C Screening [facility] Start: 1988 HIV screening HIV Screening [facility] Start: 1976 Pneumococcal vaccination Pneumococcal Vaccine (1 of 2 - PCV) [facility] Start: 1970 Glaucoma screening Diabetic Ophthalmology Exam [facility] Start: 1970 Screening for malignant neoplasm of colon [facility] Start: 1970 Tobacco Counseling Tobacco Counseling [facility] End: 09-15-2025 Comprehensive metabolic 2000 panel - Serum or Plasma Comprehensive metabolic panel Lab Routine Essential hypertension 1 Occurrences starting 09/15/2024 until 09/15/2025 [facility] Comment on above: 1 Occurrences starting 09/15/2024 until 09/15/2025 End: 09-15-2025 Drug Screen, Urine Drug Screen, Urine Lab Routine Medication management 1 Occurrences starting 09/15/2024 until 09/15/2025 [facility] Comment on above: 1 Occurrences starting 09/15/2024 until 09/15/2025 End: 10-26-2025 Drug Screen, Urine Drug Screen, Urine Lab Routine Anxiety Medication monitoring encounter 1 Occurrences starting 10/26/2024 until 10/26/2025 [facility] Comment on above: 1 Occurrences starting 10/26/2024 until 10/26/2025 End: 09-15-2025 Hemoglobin A1c/Hemoglobin.total in Blood Hemoglobin A1c Lab Routine Diabetes mellitus without complication ([facility]) 1 Occurrences starting 09/15/2024 until 09/15/2025 [employer] Work Phone: Comment on above: 1 Occurrences starting 09/15/2024 until 09/15/2025 End: 09-15-2025 Lipid panel Lipid panel Lab Routine Mixed hyperlipidemia 1 Occurrences starting 09/15/2024 until 09/15/2025 [facility] Comment on above: 1 Occurrences starting 09/15/2024 until 09/15/2025 End: 12-15-2025 Microalbumin - Albumin: Creatinine Urine Ratio Microalbumin - Albumin: Creatinine Urine Ratio Lab Routine Diabetes mellitus without complication ([facility]) 1 Occurrences starting 12/15/2024 until 12/15/2025 [employer] Work Phone: Comment on above: 1 Occurrences starting 12/15/2024 until 12/15/2025 Microalbumin - Album in: Creatinine Urine Ratio Microalbumin - Albumin: Creatinine Urine Ratio Lab Routine Diabetes mellitus without complication ([facility]) 12/15/2024 4:11 PM EDT [facility] THIN PREP TIS PAP AN D HR HPV DNA THIN PREP TIS PAP AND HR HPV DNA Pathology and Cytology Routine Well woman exam with routine gynecological exam H/O: hysterectomy Ordered: 07/29/2024 [facility] Comment on above: Ordered: 07/29/2024 End: 03-16-2026 Tramadol and Metabolite, U Tramadol and Metabolite, U Lab Routine Lumbosacral radiculopathy at L5 Osteoarthritis, unspecified osteoarthritis type, unspecified site 1 Occurrences starting 03/16/2025 until 03/16/2026 [facility] Work Phone: Comment on above: 1 Occurrences starting 03/16/2025 until 03/16/2026 Tramadol and Metabolite, U Trama dol and Metabolite, U Lab Routine Lumbosacral radiculopathy at L5 Osteoarthritis, unspecified osteoarthritis type, unspecified site 03/16/2025 3:16 PM EDT [facility] End: 12-15-2025 XR Cervical spine 4 or 5 Views X-ray spine cervical 4 or 5 views Imaging Routine Cervical spondylosis without myelopathy 1 Occurrences starting 12/15/2024 until 12/15/2025 [facility] Work Phone: Comment on above: 1 Occurrences starting 12/15/2024 until 12/15/2025 XR Foot - right 3 Views XR foot 3+ views right Imaging Routine Paronychia, toe, right 04/23/2024 10:16 AM EDT [facility] Work Phone: XR Knee - left 1 or 2 Views XR k nee 1 or 2 views left Imaging Routine Acute pain of left knee 03/09/2025 10:54 AM EDT [facility] Work Phone: Immunizations Immunization Date Immunization Notes Care Provider [facility] 05-12-2024 Covid-19,mrna, Lnp-s , Pf, 50mcg/0.5ml 12+ Robert Furlong DO Work Phone: [facility] 05-12-2024 influenza, seasonal, injectable, preservative free Robert Furlong DO Work Phone: [facility] 05-12-2024 Pneumococcal Conjugate 20-valent Robert Furlong DO Work Phone: [facility] 05-12-2024 zoster vaccine recombinant Robert Furlong DO Work Phone: [facility] 05-12-2024 influenza virus vaccine, unspecified formulation Martin Arango DPM Work Phone: [facility] 03-09-2024 zoster vaccine recombinant Cj Zepeda [employer]IDE OPERATOR Work Phone: [facility] 06-24-2023 influenza virus vaccine, unspecified formulation SHERI JIMENES [facility] 06-24-2023 SARS-COV-2 (COVID-19 ) vaccine, mRNA, spike protein, LNP, PF, 50 mcg/0.5 mL Cj Apling [employer] OPERATOR Work Phone: [facility] 04-15-2020 influenza virus vaccine, unspecified formulation Cady CALIX [facility] 06-02-2019 hepatitis A vaccine, adult dosage Cady CALIX [facility] 11-21-2018 hepatitis A vaccine, adult dosage Cady CALIX [facility] NEGATED: Highlighted row has not occurred!04-29-2023 influenza virus vaccine, unspecified formulation Cady CALIX [facility] NEGATED: Highlighted row has not occurred!10-29-2022 influenza virus vaccine, unspecified formulation Inessa Grajeda [facility] NEGATED: Highlighted row has not occurred!09-14-2022 influenza virus vaccine, unspecified formulation Inessa Grajeda [facility] NEGATED: Highlighted row has not occurred!05-09-2022 influenza virus vaccine, unspecified formulation Cady CALIX [facility] NEGATED: Highlighted row has not occurred!12-11-2021 influenza virus vaccine, unspecified formulation Donaldo PEARSON [facility] NEGATED: Highlighted row has not occurred!12-11-2021 SARS-CoV-2 (COVID-19) Ad26 vaccine, recombinant Donaldo PEARSON [facility] NEGATED: Highlighted row has not occurred!11-07-2021 influenza virus vaccine, unspecified formulation Inessa Grajeda [facility] NEGATED: Highlighted row has not occurred!09-04-2021 SARS-CoV-2 (COVID-19) Ad26 vaccine, recombinant Inessa Grajeda [facility] Payers Date Payer Category Payer Self-pay [id number] 2023 Medicaid HMO [employer] [id number] 2022 Medicaid [id number] 2019 Unknown [id number]. [id number] 2017 Private Health Insurance [facility] MEDICA[facility] [id number] 2004 Medicaid [id number]. 1.13.693.2. [id number] 1970 Unknown [id number] 2.16.840.1.017031.3.579.2. 593 1970 Unknown [id number] 2.16.840.1.985804.3.579.2. 593 1970 Unknown [id number] 2.16.840.1.178568.3.579.2. 593 1970 Unknown [id number] 2.16.840.1.388180.3.579.2. 593 1970 Unknown [id number] 2.16.840.1.764391.3.579.2. 593 1970 Unknown [id number] 2.16.840.1.177628.3.579.2. 593 1970 Unknown [id number] 2.16.840.1.919179.3.579.2. 593 1970 Unknown [id number] 2.16.840.1.515105.3.579.2. 593 1970 Unknown [id number] 2.16.840.1.966341.3.579.2. 593 1970 Unknown [id number] 2.16.840.1.938829.3.579.2. 593 1970 Unknown [id number] 2.16.840.1.153145.3.579.2. 593 1970 Unknown [id number] 2.16840.1.675329.3.579.2. 593 1970 Unknown [id number] 2.16.840.1.251887.3.579.2. 593 1970 Unknown [id number] 2.16.840.1.728216.3.579.2. 593 1970 Unknown [id number] 2.16.840.1.028214.3.579.2. 593 1970 Unknown [id number] 2.16.840.1.959796.3.579.2. 176 1970 Unknown [id number] 2.16.840.1.668591.3.579.2. 1286 1970 Unknown [id number] 2.16.840.1.977147.3.579.2. 1286 1970 Unknown [id number] 2.16.840.1.877331.3.579.2. 1286 1970 Unknown [id number] 2.16.840.1.484445.3.579.2. 1286 1970 Unknown [id number] 2.16.840.1.540630.3.579.2. 1285 1970 Unknown [id number] 2.16.840.1.099556.3.579.2. 1285 1970 Unknown [id number] 2.16.840.1.308410.3.579.2. 1285 1970 Unknown [id number] 2..840.1.274343.3.579.2. 1285 1970 Unknown [id number] 2.840.1.830191.3.579.2. 1285 1970 Unknown [id number] 2.840.1.157341.3.579.2. 1285 1970 Unknown [id number] 2.840.1.384115.3.579.2. 1285 1970 Unknown [id number] 2.840.1.541087.3.579.2. 1285 1970 Unknown [id number] 2.840.1.559794.3.579.2. 1285 1970 Unknown [id number] 2.840.1.948591.3.579.2. 1285 1970 Unknown [id number] 2.840.1.441015.3.579.2. 1285 1970 Unknown [id number] 2.840.1.303264.3.579.2. 1285 1970 Unknown [id number] 2.840.1.701269.3.579.2. 1285 1970 Unknown [id number] 2.16840.1.743973.3.579.2. 1285 1970 Unknown [id number] 2.16.840.1.031975.3.579.2. 1285 1970 Unknown [id number] 2.16840.1.119653.3.579.2. 1285 1970 Unknown [id number] 2.16.840.1.066055.3.579.2. 1286 1970 Unknown [id number] 2.16.840.1.451644.3.579.2. 1286 1970 Unknown [id number] 2.16.840.1.204084.3.579.2. 1286 1970 Unknown [id number] 2.16.840.1.495267.3.579.2. 727 1970 Unknown [id number] 2.16.840.1.410868.3.579.2. 727 1970 Unknown [id number] 2.16.840.1.582223.3.579.2. 727 1970 Unknown [id number] 2.16.840.1.324995.3.579.2. 727 1970 Unknown [id number] 2.16.840.1.549783.3.579.2. 727 1970 Unknown [id number] 2.16.840.1.092843.3.579.2. 727 1970 Unknown [id number] 2.16.840.1.409720.3.579.2. 1259 1970 Unknown [id number] 2.16.840.1.398410.3.579.2. 1259 1970 Unknown [id number] 2.16.840.1.171309.3.579.2. 1259 1970 Unknown [id number] 2.16.840.1.832979.3.579.2. 1259 1970 Unknown [id number] 2.16.840.1.667686.3.579.2. 1259 1970 Unknown [id number] 2.16.840.1.726073.3.579.2. 1259 1970 Unknown [id number] 2.16.840.1.967298.3.579.2. 1259 1970 Unknown [id number] 2.16.840.1.980665.3.579.2. 1258 1970 Unknown [id number] 2.16.840.1.317364.3.579.2. 1258 1970 Unknown [id number] 2.16.840.1.714263.3.579.2. 1258 1970 Unknown [id number] 2.16.840.1.849476.3.579.2. 1258 1970 Unknown [id number] 2.16.840.1.063905.3.579.2. 1258 1970 Unknown [id number] 2.16.840.1.216779.3.579.2. 1258 1970 Unknown [id number] 2.16.840.1.076240.3.579.2. 1258 1970 Unknown [id number] 2.16.840.1.157807.3.579.2. 1258 1970 Unknown [id number] 2.16.840.1.394590.3.579.2. 1258 1970 Unknown [id number] 2.16.840.1.506594.3.579.2. 1258 1970 Unknown [id number] 2.16.840.1.249809.3.579.2. 1258 1970 Unknown [id number] 2.16.840.1.396973.3.579.2. 1258 1970 Unknown [id number] 2.16.840.1.448220.3.579.2. 1258 1970 Unknown [id number] 2.16.840.1.322148.3.579.2. 1258 1970 Unknown [id number] 2.16.840.1.890070.3.579.2. 1258 1970 Unknown [id number] 2.16.840.1.395980.3.579.2. 9 1970 Unknown [id number] 2.16.840.1.795568.3.579.2. 1258 1970 Unknown [id number] 2.16.840.1.494368.3.579.2. 1258 1970 Unknown [id number] 2.16.840.1.626575.3.579.2. 1258 1970 Unknown [id number] 2.16.840.1.645430.3.579.2. 1258 1970 Unknown [id number] 2.16.840.1.890144.3.579.2. 1258 1970 Unknown [id number] 2.16.840.1.573038.3.579.2. 1258 1970 Unknown [id number] 2.16.840.1.666045.3.579.2. 1258 1970 Unknown [id number] 2.16.840.1.648486.3.579.2. 1258 1970 Unknown [id number] 2.16.840.1.684180.3.579.2. 1258 1970 Unknown [id number] 2.16.840.1.012772.3.579.2. 1258 1970 Unknown [id number] 2.16.840.1.169057.3.579.2. 1258 1970 Unknown [id number] 2.16.840.1.355869.3.579.2. 1258 1970 Unknown [id number] 2.16.840.1.342626.3.579.2. 1258 1970 Unknown [id number] 2.16.840.1.612560.3.579.2. 1258 1970 Unknown [id number] 2.16.840.1.105496.3.579.2. 1258 1970 Unknown [id number] 2.16.840.1.257249.3.579.2. 1259 1970 Unknown [id number] 2.16.840.1.444960.3.579.2. 1259 1970 Unknown [id number] 2.16.840.1.278164.3.579.2. 1286 1970 Unknown [id number] 2.16.840.1.094082.3.579.2. 1286 1970 Unknown [id number] 2.16.840.1.669049.3.579.2. 1286 1970 Unknown [id number] 2.16.840.1.440118.3.579.2. 1286 1970 Unknown [id number] 2.16.840.1.400070.3.579.2. 1286 1970 Unknown [id number] 2.16.840.1.155092.3.579.2. 1286 1970 Unknown [id number] 2.16.840.1.200917.3.579.2. 1286 1970 Unknown [id number] 2.16.840.1.775986.3.579.2. 1286 1970 Unknown [id number] 2.16.840.1.646101.3.579.2. 727 1970 Unknown [id number] 2.16.840.1.904469.3.579.2. 727 1970 Unknown [id number] 2.16.840.1.446581.3.579.2. 727 1970 Unknown [id number] 2.16.840.1.219785.3.579.2. 718 1970 Unknown [id number] 2.16.840.1.498440.3.579.2. 718 1959 Medicaid [id number] 1959 Private Health Insurance [id number] 1959 Unknown [id number] 1959 Unknown [id number] Unknown [id number] 2.16.840.1.356991.3.579.2. 531 Unknown [id number] 2.16.840.1.627980.3.579.2. 531 Unknown [id number] 2.16.840.1.360599.3.579.2. 531 Social History Date Type Detail Facility Start: 11-07-2021 End: 01-21-2025 Tobacco smoking status Heavy tobacco smoker (finding) [facility] Comment on above: 1 pack per day smoke r Start: 01-24-2023 End: 08-28-2023 Sex Assigned At Female [facility] Tobacco [facility] Comment on above: 1 ppd smokes 1 ppd. Tobacco smoking status Never [facility] Start: 1970 Sex Assigned At Female F [facility] Tobacco smoking status [facility] Start: 08-19-1985 End: 02-17-2025 Tobacco smoking status NHIS Smoker (finding) [facility] Start: 01-04-2022 End: 06-20-2023 Tobacco smoking status NHIS Smokes tobacco daily [facility] Start: 08-19-1985 End: 02-17-2025 History of tobacco use Cigarette Smoker [facility] History of tobacco use Passive smoker [facility] Start: 06-20-2023 End: 03-16-2025 Tobacco use and exposure Smokeless tobacco non-user [facility] Start: 08-28-2023 End: 03-16-2025 Alcohol intake Ex-drinker (finding) [facility] Start: 01-24-2023 End: 08-28-2023 History of Social function [facility] Start: 02-21-2023 Alcohol Comment caffeine 1-2 c ups per day [facility] Start: 1970 Sex Assigned At Not on file [facility] Start: 06-30-2020 Alcoholic beverage intake Current non-drinker of alcohol (finding) [facility] Start: 02-28-2015 Tobacco Comment Vaporization a lso. started to smoke at 12 [facility] Start: 03-20-2021 End: 04-19-2021 Exposure to SARS-CoV-2 (event) Not sure [facility] How often to you hav e a drink containing alcohol? Monthly or less [facility] How many standard drinks containing alcohol do you have on a typical day? 1 or 2 [facility] How often do you hav e 6 or more drinks on 1 occasion? Less than monthly [facility] Start: 10-17-2023 Alcohol Comment caffeine intak e: 1-2 cups per day [facility] Start: 03-24-2024 Gender identity Identifies as female gender (finding) [facility] Has the [employer], oil, or water company threatened to shut off services in your home in past 12Mo No [facility] Are you now , , , , never or living with a partner? [facility] How many standard drinks containing alcohol do you have on a typical day? 3 or 4 [facility] How often do you hav e 6 or more drinks on 1 occasion? Never [facility] How hard is it for y ou to pay for the very basics like food, housing, medical care, and heating Not very hard [facility] Do you feel stress - tense, restless, nervous, or anxious, or unable to sleep at night because your mind is troubled all the time - these days [OSQ] To some extent [facility] Start: 03-24-2015 End: 11-07-2018 Sex Female (finding) [facility] Start: 02-24-2025 End: 03-16-2025 Tobacco smoking status [facility] Ex-smoker [facility] Medical Equipment Procedure Code Equipment Code Equipment Origin al Text Equipment Identifier Dates Phacoemulsification of cataract with intraocular lens implantation Posterior-chamber intraocular lens, pseudophakic ()[id number] FDA Start: 12-14-2021 Phacoemulsification of cataract with intraocular lens implantation Posterior-chamber intraocular lens, pseudophakic ()[id number] FDA Start: 01-04-2022 Martin Fernández DPM 11/21/22 Non Biological Foot R FDA [...] Non Biological Foot R FDA Start: 11-21-2022 [id number] Start: 09-23-2024 End: 02-24-2025 Inject 1 Lancet under the skin in the morning. [id number] Start: 09-23-2024 End: 02-24-2025 HAMMERTOE REPAIR Brown DPM, Martin A 11/21/22 [...] Start: 11-21-2022 1 strip by other route as needed for high blood sugar. [id number] Start: 02-24-2025 1 strip by other route as needed for high blood sugar. [id number] Start: 02-24-2025 End: 02-24-2025 1 Lancet by miscellaneous route in the morning. [id number] Start: 02-25-2025 HAMMERTOE REPAIR Brown DPM, Martin A 11/21/22 Non Biological Foot R FDA Start: 11-21-2022 HAMMERTOE REPAIR Brown DPM, Martin A 11/21/22 Non Biological Foot R FDA Start: 11-21-2022 Functional Status Date Assessment Result Facility 08-26-2024 Functional Status N/A [facility] 08-13-2024 Functional Status N/A [facility] 03-05-2024 Functional Status N/A [facility] 01-30-2024 Functional Status N/A [facility] 01-15-2024 Functional Status N/A [facility] 01-01-2024 Functional Status N/A [facility] 12-31-2023 Functional Status N/A [facility] 11-06-2023 Functional Status N/A [facility] 09-17-2023 Functional Status N/A [facility] 07-25-2023 Functional Status No [facility] 07-05-2023 Functional Status No [facility] 05-20-2023 Functional Status No [facility] 01-17-2023 Functional Status N/A [facility] 10-30-2022 Functional Status No [facility] 10-29-2022 Functional Status N/A [facility] 10-20-2022 Functional Status N/A [facility] 10-12-2022 Functional Status N/A [facility] 10-02-2022 Functional Status N/A [facility] 09-06-2022 Functional Status N/A [facility] 05-15-2022 Functional Status No [facility] 03-06-2022 Functional Status N/A [facility] Clinical Notes 04-19-2021 to 04-13-2025 Telephone Encounter - Caridad De Leon - 03/23/2025 11:32 AM EDTTelephone Encounter - Caridad De Leon - 03/23/2025 11:32 AM Neena Giron DO - 03/16/2025 2:00 PM EDT Note Date & Type Note Facility 04-13-2025 Radiology Diagnostic study note [place] [id number] CT Scan Report Signed Patient: Rock Herrera MR#: [id number] : 1970 Acct:[id number] Age/Sex: 54 / F ADM Date: 5 Loc: CT Room: Type: REG CLI Attending Dr: CARRILLO Boyd APRN Copies to: Valarie Conley APRN, ACNP-BC~ Ordering Provider: Valarie Conley APRN, ACNP-BC Date of Service: 04/13/25 CT/CT lung screening: F17.210 - Nicotine dependence, cigarettes, uncomplicated CT CHEST WITHOUT CONTRAST, LOW DOSE SCREENING: CLINICAL DATA: A 54-year old former smoker, smoking for 39 pack-years. COMPARISON: Lung screening CT 03/31/2024 TECHNIQUE: Noncontrast axial CT scan images of the chest were obtained under thelow dose screening CT protocol. Coronal and sagittal reconstructed images were also submitted. FINDINGS: Mediastinum : Suboptimal evaluation due to low-dose technique. Thoracic aorta appears normal in caliber. Pulmonary trunk appears nondilated. No pericardial effusion. No lymphadenopathy. The esophagus is grossly unremarkable. Lungs: No focal consolidation, pneumothorax or pleural effusion. Trachea and distal airways appear patent. Mild bronchial wall thickening. Emphysema. No suspicious noncalcified pulmonary nodule or mass. Upper abdomen: No acute findings. Bony thorax and chest wall: Soft tissues surrounding the chest wall demonstrate no acute findings. Osseous structures demonstrate degenerative change. CT/CT lung screening IMPRESSION: NO SUSPICIOUS PULMONARY NODULE. LUNG - RADS Version 1.0 Assessment: Category 1, Negative (No nodules and definitely benign nodules). Management: Continue annual lung screening with LDCT in 12 months. Impression dictated by: Champ Hobson Jr., D.O. 04/13/2025 2:14 PM Dictation Location: [place] [address] Transcribed By: [facility] 04/13/25 1414 Dictated By: Champ Hobson Jr, DO 04/13/25 1413 Signed By: 04/13/25 1414 [facility] 03-23-2025 Telephone encounter Note Patient called stating she now has both surgery clearances and would like to know when she can schedule surgery for her L TKA ? [phone] [facility] 03-23-2025 Miscellaneous Notes Patient called stating she now has both surgery clearances and would like to know when she can schedule surgery for her L TKA ? [phone] documented in this encounter [facility] 03-19-2025 Note Nurse Consultation N ote Reason for Visit fu Physical Exam Vitals & Measurements HR: 68(Peripheral) BP: 141/80 HT: 64 in HT: 163 cm WT: 157.63 lb WT: 71.5 kg BMI: 26.91 Assessment/Plan 1. History of UTI (Z87.440: Personal history of urinary (tract) infections) Medications Abilify, 15 mg, Oral, Daily acetaminophen-oxycodone 325 mg-5 mg Tab, 1 tab(s), Oral, q4hr, PRN Ajovy Autoinjector 225 mg/1.5 mL subcutaneous solution, 225 mg, SubCutaneous, qMonth alendronate, 70 mg, Oral, qWeek alprazolam 1 mg Tab Calcium 600+D, 600 / 400 mg, Oral, Daily carvedilol 25 mg Tab, 25 mg= 1 tab(s), Oral, BID, 5 refills diltiazem CD 120 mg/24 hours Cap-ER, 120 mg= 1 cap(s), Oral, Daily, 5 refills Imodium A-D 2 mg oral tablet, See Instructions, PRN, 6 refills Lasix, 20 mg, Oral, Daily Lipitor 40 mg Tab, 80 mg= 2 tab(s), Oral, Bedtime meclizine, 25 mg, Oral, QID, PRN montelukast 10 mg Tab, 10 mg= 1 tab(s), Oral, Daily Myrbetriq 50 mg oral tablet, extended release, 50 mg= 1 tab(s), Oral, Daily, 11 refills naltrexone 1.5 mg oral capsule, See Instructions Nurtec ODT, 75 mg, Oral, q24hr, PRN omeprazole, 40 mg, Oral, Daily ondansetron, 4 mg, SubLingual, PRN solifenacin 10 mg Tab, 10 mg= 1 tab(s), Oral, Daily, 11 refills traMADOL 50 mg Tab Ventolin HFA 90 mcg/inh Aerosol, 2 puff(s), Inhalation, QID, PRN Vitamin B1 100 mg Tab, 100 mg= 1 tab(s), Oral, Daily Vitamin D 50,000 intl units (1.25 mg) oral capsule, 08663 International_Unit= 1 cap(s), Oral, Saturday Allergies Neurontin (Unknown) Advair HFA (Rash) Augmentin (Vomiting) Avelox (Rash) Bactrim DS (Vomiting) Calan (Palpitations, Vomiting) Cymbalta (Unknown) Decadron (Hot flashes) Depakote (Alopecia) Geodon (Palpitations) Lyrica (Unknown) Macrobid (unknown) Mobic (Unknown) Paxil (Unknown) Requip (Altered mental status) Robaxin (Unknown) Savella (Unknown) Strattera (Palpitations) Tape (Rash) Topamax (Vomiting) Toradol (Unknown) Trileptal (Unknown) Wellbutrin (Palpitations) amitriptyline (Vomiting) amoxicillin (Hives) codeine (Rash) dexamethasone (Hot flashes) doxycycline (Palpitations) fluticasone (Unknown) ibuprofen (Rash) methadone (Vomiting) penicillins (Unknown) pregabalin (Palpitations) shellfish (Rash) ziprasidone (Unknown) Immunizations Vaccine Date Status Comments influenza virus vaccine, inactivated 06/24/2023 Recorded influenza virus vaccine, inactivated - Not Given Patient Refuses influenza virus vaccine, inactivated - Not Given Patient Refuses influenza virus vaccine, inactivated - Not Given Patient Refuses influenza virus vaccine, inactivated - Not Given Patient Refuses influenza virus vaccine, inactivated - Not Given Postpone due to refusal SARS-CoV-2 (COVID-19) Ad26 vaccine - Not Given Postpone due to refusal influenza virus vaccine, inactivated - Not Given Postpone due to refusal SARS-CoV-2 (COVID-19) Ad26 vaccine - Not Given Postpone due to refusal influenza virus vaccine, inactivated 04/15/2020 Recorded hepatitis A adult vaccine 06/02/2019 Recorded hepatitis A adult vaccine 11/21/2018 Recorded Lab Results Ambulatory Point of Care Results Bilirubin Urine Dipstick: Negative (03/17/25 15:23:00) Blood Urine Dipstick: Negative (03/17/25 15:23:00) Glucose Urine Dipstick: Negative (03/17/25 15:23:00) Ketones Urine Dipstick: Negative (03/17/25 15:23:00) Leukocytes Urine Dipstick: Negative (03/17/25 15:23:00) Nitrite Urine Dipstick: Negative (03/17/25 15:23:00) Protein Urine Dipstick: Negative (03/17/25 15:23:00) Specific [place] Urine Dipstick: 1.015 (03/17/25 15:23:00) Urine Appearance Urine Dipstick: Clear (03/17/25 15:23:00) Urine Color Urine Dipstick: Yellow (03/17/25 15:23:00) Urobilinogen Urine Dipstick: Normal 0.2-1 EU/dl (03/17/25 15:23:00) pH Urine Dipstick: 5 (03/17/25 15:23:00) [facility] 03-17-2025 Hospital Discharge instructions Patient Education 03/17/2025 16:32:14 Hematuria, Adult Hematuria, Adult Hematuria is blood [...] Follow these instructions at home: Medicines Take mvit-[id number] and prescription medicines only as told by [...] or the blood stops without treatment. Take ugvq-[id number]-kdclvxr and prescription medicines only as told by your health care provider. Drink enough fluid to keep your urine pale yellow. This information is not intended to replace advice given to you by your health care provider. Make sure you discuss any questions you have with your health care provider. Document Revised: 04/05/2021 Document Reviewed: 04/05/2021 [employer] Patient Education 2023 [employer]. Follow Up Care 03/16/2025 09:06:54 With:Sofiya Villa PA-C, QASIML Address: When: Unknown Comments:Schedule cystoF/U in 3 months w/ [facility] 03-17-2025 Note Patient Education Urology Hematuria, Adult Hematuria is blood in the urine. Blood may be visible in the urine, or it may be identified with a test. This condition can be caused by infections of the bladder, urethra, kidney, or prostate. Other possible causes include: ??? Kidney stones. ??? Cancer of the urinary tract. ??? Too much calcium in the urine. ??? Conditions that are passed from parent to child (inherited conditions). ??? Exercise that requires a lot of energy. [...] cancers. Follow these instructions at home: Medicines ??? Take xicf-joq-umthnza and prescription medicines only as told by your health care provider. ??? If you were prescribed an antibiotic medicine, take it as told by your health care provider. Do not stop taking the antibiotic even if you start to feel better. Eating and drinking ??? Drink enough fluid to keep your urine pale yellow. It is recommended that you drink 3?4 quarts (2.8?3.8 L) a day. If you have been diagnosed with an infection, drinking cranberry juice in addition to large amounts of water is recommended. ??? Avoid caffeine, tea, and carbonated beverages. These tend to irritate the bladder. ??? Avoid alcohol because it may irritate the prostate (in males). General instructions ??? If you have been diagnosed with a kidney stone, follow your health care provider's instructions about straining your urine to catch the stone. ??? Empty your bladder often. Avoid holding urine for long periods of time. ??? If you are female: ? After a bowel movement, wipe from front to back and use each piece of toilet paper only once. ? Empty your bladder before and after sex. ??? Pay attention to any changes in your symptoms. Tell your health care provider about any changes or any new symptoms. ??? It is up to you to get the results of any tests. Ask your health care provider, or the department that is doing the test, when your results will be ready. ??? Keep all follow-up visits. This is important. Contact a health care provider if: ??? You develop back pain. ??? You have a fever or chills. ??? You have nausea or vomiting. ??? Your symptoms do not improve after 3 days. ??? Your symptoms get worse. Get help right away if: ??? You develop severe vomiting and are unable to take medicine without vomiting. ??? You develop severe pain in your back or abdomen even though you are taking medicine. ??? You pass a large amount of blood in your urine. ??? You pass blood clots in your urine. ??? You feel very weak or like you might faint. ??? You faint. Summary ??? Hematuria is blood in the urine. It has many possible causes. ??? It is very important that you tell your health care provider about any blood in your urine, even if it is painless or the blood stops without treatment. ??? Take ktfp-fbl-vjzeeye and prescription medicines only as told by your health care provider. ??? Drink enough fluid to keep your urine pale yellow. This information is not intended to replace advice given to you by your health care provider. Make sure you discuss any questions you have with your health care provider. Document Revised: 04/05/2021 Document Reviewed: 04/05/2021 [employer] Patient Education ? 2023 [employer]. [facility] 03-16-2025 History of Present illness Narrative Subjective Patient ID: Rock Herrera is a 54 y.o. female. Earline presents today for a controlled substance visit rechecked. She was recently started on tramadol 1 3 times a day for severe osteoarthritis of her knee and torn cartilage of her knee. She is going to need a knee replacement soon. 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 She has not had any recent illness. She can climb a flight of stairs and walk a city block without chest pain or short of breath. She quit smoking 27 days ago. She is breathing better and feels better overall. She had a cardiac catheterization a few years ago which was normal. She is getting a low-dose CT scan of her lungs in a couple weeks. The following portions of the patient's history were reviewed and updated as appropriate: allergies, current medications, past family history, past medical history, past social history, past surgical history, problem list, and medication reconciliation was completed including current medication and post discharge medication. Review of Systems Objective Physical Exam Vitals reviewed. Constitutional: General: She is not in acute distress. Appearance: She is overweight. She is not ill-appearing. HENT: Head: Normocephalic. Neck: Thyroid: No thyroid mass, thyromegaly or thyroid tenderness. Trachea: Trachea and phonation normal. Cardiovascular: Rate and Rhythm: Normal rate and regular rhythm. Heart sounds: Normal heart sounds. No murmur heard. Pulmonary: Effort: Pulmonary effort is normal. No respiratory distress. Breath sounds: Normal breath sounds. No wheezing, rhonchi or rales. Musculoskeletal: Cervical back: Neck supple. Lymphadenopathy: Cervical: No cervical adenopathy. Neurological: Mental Status: She is alert. Gait: Gait abnormal (slightly antalgic). Psychiatric: Attention and Perception: Attention normal. Mood and Affect: Mood and affect normal. Speech: Speech normal. Behavior: Behavior normal. Behavior is cooperative. Thought Content: Thought content normal. Cognition and Memory: Cognition normal. Judgment: Judgment normal. Assessment/Plan Rock was seen today for controlled medications. Diagnoses and all orders for this visit: Lumbosacral radiculopathy at L5 - Drug Screen, Urine; Future - Tramadol and Metabolite, U; Future - Tramadol and Metabolite, U - Drug Screen, Urine Check urine for drugs of abuse and presence of metabolites. She is using high risk medication with benefit. It is helping improve her quality of life and ability to do ADLs and IADLs. There are no adverse effects. The OARRS/MAPPS database was reviewed today and found to be appropriate. No indication of medication diversion, or non compliance. Osteoarthritis, unspecified osteoarthritis type, unspecified site - Drug Screen, Urine; Future - Tramadol and Metabolite, U; Future - Tramadol and Metabolite, U - Drug Screen, Urine As above Diabetes mellitus without complication ([facility]) - POCT Hemoglobin A1c Her A1c is great at 5.3%. Continue metformin for now. Chronic obstructive pulmonary disease, unspecified COPD type ([facility]) Stable. Follow up with specialist as directed. Anxiety She is using high risk medication with benefit. It does help improve quality of life. She does not have any adverse effects. Risks and benefits of medication and use with tramadol discussed. She does have naloxone available at home. Continue current regimen. Check urine for presence of medication and drugs of abuse. documented in this encounter [facility] 03-10-2025 History of Present illness Narrative Images from the original note were not included. Chief Complaint: Fecal incontinence History of Present Illness Rock Herrera is a 54 y.o. female who presents to the office for fecal incontinence and altered bowel habits. She states she will have constipation for about a week followed by a big outburst of diarrhea. She also endorses lower abdominal pain that resolves after she has a bowel movement. She denies rectal bleeding. She states she does not drink any water. She drinks mountain dew, Dr. Pepper, root beer and grape pop. She admits to eating a poor diet with greasy/fried foods. Her last colonoscopy was 01/17/2023 at [facility] significant for hemorrhoids and 1 small tubular adenoma. Her symptoms started prior to this colonoscopy. Review of Systems Constitutional: Negative for fever and unexpected weight change. HENT: Negative for trouble swallowing. Respiratory: Negative for shortness of breath. Cardiovascular: Negative for chest pain. Gastrointestinal: Positive for abdominal pain, diarrhea and constipation. Negative for blood in stool. Genitourinary: Negative for dysuria and difficulty urinating. Musculoskeletal: Negative for gait problem. Skin: Negative for rash and wound. Neurological: Negative for dizziness, weakness and light-headedness. Hematological: Does not bruise/bleed easily. Psychiatric/Behavioral: Negative for confusion. Past Medical History: Diagnosis Date Anxiety Anxiety Arthritis Asthma Bipolar disorder ([facility]) Carpal tunnel syndrome Chronic kidney disease stage 3 COPD (chronic obstructive pulmonary disease) ([facility]) Depression Diabetes mellitus ([facility]) Fibromyalgia GERD (gastroesophageal reflux disease) Heart abnormality 01/24/2020 leaky valve going for testing Hyperlipidemia Hypertension Joint pain Low back pain Mitral valve prolapse Myocardial infarction (CMS-HCC) Neck pain Osteoarthritis Osteoporosis Sleep apnea no cpap Spinal stenosis Vertigo Visual impairment glasses Past Surgical History: Procedure Laterality Date APPENDECTOMY ARTHROSCOPY WITH LATERAL MENISCECTOMY KNEE Right 06/06/2022 Performed by Kurt Chapman MD at [facility] BREAST FIBROADENOMA SURGERY CARDIAC CATHETERIZATION 12/25/2019 normal CARPAL TUNNEL RELEASE Left 08/03/2024 CATARACT EXTRACTION Bilateral CHONDROPLASTY, SYNOVECTOMY Right 06/06/2022 Performed by Kurt Chapman MD at [facility] COLONOSCOPY 2019 in CORRECTION HAMMER TOE Right EPIDURAL BLOCK INJECTION HYSTERECTOMY one ovary remains INJECTION BLOCK NERVE KNEE Left Genicular Left 06/05/2024 Performed by Avi Maharaj MD at [facility] INJECTION MEDIAL BRANCH NERVE BLOCK: bilat L45 51 Bilateral 09/25/2019 Performed by Avi Maharaj MD at [facility] INJECTION SI JOINT Bilateral SI Joint Bilateral 03/25/2020 Performed by Avi Maharaj MD at [facility] LAPAROSCOPIC CHOLECYSTECTOMY N/A 03/15/2017 Performed by Karlos Quinones DO at [facility] NEUROMA SURGERY PLANTAR FASCIA RELEASE Bilateral SINUS SURGERY x2 TARSAL TUNNEL RELEASE Bilateral TOE SURGERY toenails removed ULNAR TUNNEL RELEASE Left 08/03/2024 Allergies Allergen Reactions Codeine Hives Fish Derived Hives Iodinated Contrast Media Anaphylaxis Patient started to have SOB and felt faint Shellfish Containing Products Rash and Hives Atomoxetine Hcl GI Disturbance and Palpitations [...] Nitrofurantoin Monohyd/M-Cryst Other (See Comments) Paroxetine Hives Penicillin Other (See Comments) Penicillins GI Disturbance, Hives, Other (See Comments) and Vomiting Requip [Ropinirole] Shellfish Derived Sodium Chloride-Aloe Vera Facial numbness/tongue numbness Sulfamethoxazole Other (See Comments) Valproic Acid Other Reaction(s): Alopecia, Unknown Verapamil Hcl Adhesive Tape-Silicones Other (See Comments) and Rash rash Other Reaction(s): other Other Reaction(s): Other rash Amoxicillin-Pot Clavulanate GI Disturbance Fish Containing Products Rash Fluticasone Propion-Salmeterol Itching and Palpitations Ibuprofen GI Disturbance Methadone GI Disturbance Other reaction(s): Vomiting Pregabalin Other (See Comments) and Palpitations hallucinate Topiramate GI Disturbance and Other (See Comments) Verapamil GI Disturbance Ziprasidone Palpitations and Other (See Comments) Current Outpatient Medications: albuterol (PROVENTIL HFA;VENTOLIN HFA) 90 mcg/actuation inhaler, Inhale 2 puffs every 6 (six) hours as needed for wheezing., Disp: , Rfl: alcohol swabs (ALCOHOL PADS) pads, medicated, APPLY 1 PAD TOPICALLY EVERY 14 (FOURTEEN) DAYS. CLEAN AREA PRIOR TO PLACING SENSOR, Disp: 40 each, Rfl: 0 alendronate (FOSAMAX) 70 mg tablet, , Disp: , Rfl: ALPRAZolam (XANAX) 1 mg tablet, Take 1 tablet (1 mg total) by mouth 3 (three) times a day as needed for anxiety., Disp: 90 tablet, Rfl: 2 ammonium lactate (LAC-HYDRIN) 12 % lotion, Apply topically 2 (two) times a day., Disp: 400 g, Rfl: 0 ARIPiprazole (ABILIFY) 15 mg tablet, TAKE ONE TABLET BY MOUTH ONCE DAILY, Disp: 30 tablet, Rfl: 5 atorvastatin (LIPITOR) 80 mg tablet, TAKE ONE TABLET BY MOUTH DAILY, Disp: 30 tablet, Rfl: 11 blood sugar diagnostic (TRUE METRIX GLUCOSE TEST STRIP) strip, 1 strip by other route as needed for high blood sugar., Disp: 100 strip, Rfl: 3 blood-glucose meter (TRUE METRIX GLUCOSE METER) misc, 1 Unit by miscellaneous route in the morning., Disp: 1 each, Rfl: 0 calcium carbonate (OS-LARRY) 600 mg (1,500 mg) tablet, , Disp: , Rfl: carvediloL (COREG) 25 mg tablet, , Disp: , Rfl: cetirizine (ZyrTEC) 10 mg tablet, take one tablet by mouth once daily, Disp: 30 tablet, Rfl: 11 dilTIAZem CD (CARDIZEM CD) 120 mg 24 hr capsule, TAKE ONE CAPSULE BY MOUTH ONCE DAILY, Disp: 30 capsule, Rfl: 11 diphenhydrAMINE (BenadryL) 25 mg capsule, Take 1 capsule (25 mg total) by mouth every 6 (six) hours as needed for itching or allergies. MAY CAUSE DROWSINESS. HOLD hydroxyzine while taking this medication., Disp: 15 capsule, Rfl: 0 EPINEPHrine (EPIPEN) 0.3 mg/0.3 mL auto-injector, Inject 0.3 mL (0.3 mg total) into the appropriate muscle as needed (As needed for allergic reaction) for up to 1 dose., Disp: 1 each, Rfl: 0 ergocalciferol (DRISDOL) 1,250 mcg (50,000 unit) capsule, TAKE ONE CAPSULE BY MOUTH ONCE WEEKLY, Disp: 4 capsule, Rfl: 5 fremanezumab-vfrm (WeLinkOVY AUTOINJECTOR) 225 mg/1.5 mL, 1.5 mL (225 mg total) every 30 (thirty) days., Disp: , Rfl: furosemide (LASIX) 20 mg tablet, TAKE ONE TABLET BY MOUTH ONCE DAILY, Disp: 30 tablet, Rfl: 11 lancets misc, 1 Lancet by miscellaneous route in the morning., Disp: 100 each, Rfl: 3 lidocaine (XYLOCAINE) 5 % ointment, , Disp: , Rfl: loperamide (IMODIUM) 2 mg capsule, TAKE 2 CAPSULES BY MOUTH AFTER 1ST LOOSE STOOL AND 1 CAPSULE AFTER EACH NEXT BOWEL MOVEMENT; DO NOT EXCEED 16MG (8 CAPSULES) IN 24 HOURS, Disp: 20 capsule, Rfl: 1 meclizine (ANTIVERT) 25 mg tablet, Take 1 tablet (25 mg total) by mouth 3 (three) times a day as needed for dizziness., Disp: 20 tablet, Rfl: 1 metFORMIN (GLUCOPHAGE) 500 mg tablet, TAKE 1 TABLET (500 MG TOTAL) BY MOUTH DAILY WITH BREAKFAST., Disp: 30 tablet, Rfl: 11 montelukast (SINGULAIR) 10 mg tablet, TAKE ONE TABLET BY MOUTH DAILY IN THE EVENING, Disp: 30 tablet, Rfl: 11 loazvqrt-dwve-WM-calcium &mins (THERAGRAN-M) 9 mg iron-400 mcg tablet, Take 1 tablet by mouth in the morning., Disp: , Rfl: naloxone (NARCAN) 4 mg/actuation spray,non-aerosol nasal spray, Administer 1 spray (4 mg total) into alternating nostrils as needed for opioid reversal., Disp: 2 each, Rfl: 1 nebulizer accessories misc, 1 Tube by inhal. via small vol.nebulizer route every 6 (six) months., Disp: 1 each, Rfl: 1 nebulizers misc, 1 Unit by miscellaneous route every 6 (six) months., Disp: 1 each, Rfl: 1 nystatin (MYCOSTATIN) cream, APPLY TO AFFECTED AREA VIA TOPICAL ROUTE TWICE A DAY, Disp: 15 g, Rfl: 1 omeprazole (PriLOSEC) 40 mg capsule, TAKE ONE CAPSULE BY MOUTH ONCE DAILY BEFORE MEAL, Disp: 30 capsule, Rfl: 5 ondansetron ODT (ZOFRAN ODT) 4 mg disintegrating tablet, Dissolve 1 tablet (4 mg total) on tongue every 8 (eight) hours as needed for nausea or vomiting., Disp: 10 tablet, Rfl: 1 oxygen, Inhale continuously., Disp: , Rfl: RECTICARE 5 % cream, , Disp: , Rfl: rimegepant (NURTEC ODT) 75 mg tablet,disintegrating, , Disp: , Rfl: solifenacin (VESICARE) 10 mg tablet, Take 1 tablet (10 mg total) by mouth in the morning., Disp: , Rfl: thiamine mononitrate, vit B1, (VITAMIN B-1, MONONITRATE,) 100 mg tablet, Take 1 tablet (100 mg total) by mouth in the morning and 1 tablet (100 mg total) before bedtime., Disp: , Rfl: traMADoL (ULTRAM) 50 mg tablet, Take 1 tablet (50 mg total) by mouth every 8 (eight) hours as needed for pain., Disp: 20 tablet, Rfl: 0 psyllium (METAMUCIL) 0.52 gram capsule, Take 1 capsule (0.52 g total) by mouth in the morning and at bedtime., Disp: 60 capsule, Rfl: 1 Social History Socioeconomic History Marital status: Legally Spouse name: Not on file Number of children: Not on file Years of education: Not on file Highest education level: Not on file Occupational History Not on file Tobacco Use Smoking status: Former Current packs/day: 0.00 Average packs/day: 0.8 packs/day for 36.5 years (27.7 ttl pk-yrs) Types: Cigarettes Start date: 04/15/1988 Quit date: 02/17/2025 Years since quittin.0 Smokeless tobacco: Never Vaping Use Vaping status: Former Devices: Disposable Substance and Sexual Activity Alcohol use: Not Currently Drug use: Yes Types: Medical Marijuana Sexual activity: Not Currently Partners: Male Other Topics Concern Not on file Social History Narrative Not on file Social Drivers of Health Financial Resource Strain: Low Risk (07/07/2023) Overall Financial Resource Strain (CARDIA) Difficulty of Paying Living Expenses: Not very hard Food Insecurity: No Food Insecurity (02/24/2025) Hunger Screening Food Insecurity - Worry: Never True Food Insecurity - Inability: Never True Transportation Needs: Unmet Transportation Needs (07/07/2023) PRAPARE - Transportation Lack of Transportation (Medical): Yes Lack of Transportation (Non-Medical): Yes Physical Activity: Insufficiently Active (01/24/2023) Exercise Vital Sign Days of Exercise per Week: 4 days Minutes of Exercise per Session: 10 min Stress: Stress Concern Present (01/24/2023) [employer] [place] [employer] - Occupational Stress Questionnaire Feeling of Stress : To some extent Social Connections: Socially Isolated (01/24/2023) Social Connection and Isolation Panel [NHANES] Frequency of Communication with Friends and Family: More than three times a week Frequency of Social Gatherings with Friends and Family: More than three times a week Attends Adventism Services: Never Active Member of Clubs or Organizations: No Attends Club or Organization Meetings: Never Marital Status: Interpersonal Safety: Unknown (11/03/2024) Received from [facility] Humiliation, Afraid, Rape, and Kick questionnaire Fear of Current or Ex-Partner: No Emotionally Abused: Not on file Physically Abused: Not on file Sexually Abused: Not on file Housing Instability: Low Risk (07/07/2023) Housing Instability Housing Instability: No Family History Problem Relation Age of Onset Cancer Mother ovarian Arthritis Mother Asthma Mother COPD Mother Depression Mother Diabetes Mother Mental illness Mother Ovarian cancer Mother Cancer Brother 55 in whole body when they found it Sudden Brother Learning disabilities Brother No Known Problems Son was 23 months old and hit by garbage truck Anesthesia problems Neg Hx Objective Physical Exam Constitutional: General: She is not in acute distress. Appearance: Normal appearance. She is not ill-appearing. HENT: Head: Normocephalic and atraumatic. Mouth/Throat: Mouth: Mucous membranes are moist. Eyes: Pupils: Pupils are equal, round, and reactive to light. Cardiovascular: Rate and Rhythm: Normal rate. Pulmonary: Effort: Pulmonary effort is normal. No respiratory distress. Abdominal: General: There is no distension. Musculoskeletal: General: Normal range of motion. Skin: General: Skin is warm and dry. Neurological: Mental Status: She is alert and oriented to person, place, and time. Mental status is at baseline. Vital Signs: Height 162.6 cm (5' 4 ), weight 69.7 kg (153 lb 9.6 oz). Respiratory Source: No data recorded Admission Weight: Weight: 69.7 kg (153 lb 9.6 oz) Labs Lab Results Component Value Date WBC 14.8 (H) 07/07/2024 HGB 14.6 07/07/2024 HCT 42.7 07/07/2024 MCV 98 07/07/2024 PLT 228 07/07/2024 Lab Results Component Value Date GLU 113 (H) 09/15/2024 CALCIUM 10.0 09/15/2024 K 3.6 09/15/2024 CO2 29 09/15/2024 CL 101 09/15/2024 BUN 4 (L) 09/15/2024 CREATININE 0.95 09/15/2024 No results found for: AMYLASE Lab Results Component Value Date LIPASE 23 07/07/2024 Lab Results Component Value Date ALT 15 09/15/2024 AST 22 09/15/2024 ALKPHOS 96 09/15/2024 Lab Results Component Value Date INR 0.8 (L) 03/14/2017 PROTIME 9.6 03/14/2017 Assessment Rock Herrera is a 54 y.o.female with altered bowel habits, fecal incontinence. Plan I believe repeat colonoscopy would be of little benefit given symptoms started prior to her last colonoscopy. Encouraged healthy diet. Cut back on pop intake. Avoid greasy foods. Drink 64 oz of water daily. High-fiber diet. Fiber supplement. Will refer to GI for consideration of anal rectal manometry. Evaluation included: Preparing to see the patient (e.g., review of tests) Obtaining and/or reviewing separately obtained history Performing a medically appropriate examination and/or evaluation Counseling and educating the patient/family/caregiver Referring and communicating with other health animal care taker Incontinence of feces with fecal urgency [R15.9, R15.2] YI MUELLER [facility] [place] This note was created with the assistance of a speech recognition program. While intending to generate a timely document that accurately reflects the content of the visit, no guarantee can be provided that every grammatical or spelling mistake has been or will be identified or corrected. Thank you for your understanding. YI Mueller 03/10/25 0949 documented in this encounter [facility] 03-09-2025 History of Present illness Narrative Images from the original note were not included. HISTORY OF PRESENT ILLNESS: EST PT Rock Herrera is an 54 y.o. @ female. EST PT WITH DR ALCANTARA- RECHECK LT KNEE- PER DR ALCANTARA'S LAST NOTE PT IS HIGH RISK AND SENT TO PAIN MANAGEMENT FOR POSSIBLE GENICULAR INJ; PT DOES NOT REMEMBER BEING SENT FOR INJ A1C 5.7 PER PT ~3WKS AGO ( WILL CALL FOR RESULTS) PT STATES SHE QUIT SMOKING 3WKS AGO PT RECENTLY TX BY DR ABAD 09/2024; SURGERY WAS SUGGESTED (PT STATES SHE DID NOT GET ALONG WITH HIM) XRAY LT KNEE TODAY [facility] 03/09/25 XRAY 06/28/24 [facility] 03/27/24 [facility] HX CORTISONE INJ SPING 2023 HX LT KNEE SCOPE PER DR MONDRAGON (UNSURE OF YEAR) CONTINUES TO HAVE PAIN -PAIN IS GLOBAL- PT STATES PAIN IS SO BAD SHE CRIES- +SWELLING- +INSTABILITY-+GRINDING- +WAKES HS- NO PAIN MEDS 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 ALLERGIES: Allergies Allergen Reactions Codeine Hives and Rash Other Reaction(s): Other, Unknown Fish Allergy Hives and Rash Iodinated Contrast Media Anaphylaxis Patient started to have SOB and felt faint Other Hives Other Reaction(s): other Shellfish Allergy Rash and Hives Other Reaction(s): rash Atomoxetine Hcl Palpitations Other Reaction(s): GI Disturbance, Other: See Comments palpitations Bupropion Palpitations Other Reaction(s): GI Disturbance, other, Other: See Comments palpitations Doxycycline Palpitations Other Reaction(s): GI Disturbance, Other, Other: See Comments, Unknown palpitations Gabapentin Other Reaction(s): Unknown Oxcarbazepine GI intolerance, Hives and Palpitations palpitations Ropinirole Other Reaction(s): Altered mental status Other Reaction(s): Other Ziprasidone Hcl Hives and Palpitations palpitations Aloe Facial numbness/tongue numbness Amitriptyline Other Reaction(s): Abnormal Behavior, Mental Status Change, other, Vomiting hallucinate [place] Saline Nasal Gel [Aloe-Sodium Chloride] Facial numbness/tongue [...] Unknown, Vomiting, Vomiting, Vomiting Other Reaction(s): other Sulfamethoxazole Other Reaction(s): Other (See Comments), Unknown [...] Reaction(s): Mental Status Change, other, Unknown hallucinate Wound Dressing Adhesive Rash Other Reaction(s): other Other Reaction(s): Other rash Other Reaction(s): Other (See Comments) rash Other Reaction(s): other Other Reaction(s): Other rash Ziprasidone Palpitations Other Reaction(s): other, Unknown HOME MEDICATIONS: Current Outpatient Medications Medication Instructions Ajovy 225 [...] times daily cetirizine (ZYRTEC) 10 mg, Daily Continuous Glucose Sensor (FreeStyle Lilliam 2 Sensor) misc USE DIRECTED AND CHANGE EVERY 14 DAYS Continuous Glucose Transmitter (Dexcom G6 transmitter) misc 1 UNIT BY MISCELLANEOUS ROUTE EVERY 3 (THREE) MONTHS. dilTIAZem CD (CARDIZEM CD) 120 mg, Daily doxepin (SILENOR) 3 mg, Oral, Nightly EPINEPHrine (Epipen) 0.3 MG/0.3ML injection syringe INJECT 0.3MG INTO THE APPROPRIATE MUSCLE NEEDED FOR ALLERGIC REACTION UP TO 1 DOSE ergocalciferol (Vitamin D2) 1.25 MG (81036 UT) capsule 1 capsule, Weekly furosemide (LASIX) 20 mg, Daily lidocaine (Lidoderm) 5 % patch PLACE 1 PATCH ON THE SKIN DAILY. REMOVE & DISCARD PATCH WITHIN 12 HOURS OR DIRECTED BY lidocaine (Xylocaine) 5 % ointment APPLY TO THE AFFECTED AREA THREE TIMES DAILY NEEDED FOR PAIN loperamide (Imodium) 2 MG capsule TAKE 2 CAPSULES BY MOUTH AFTER 1ST LOOSE STOOL AND 1 CAPSULE AFTER EACH NEXT BOWEL MOVEMENT; DO NOT EXCEED 16MG (8 CAPSULES) IN 24 HOURS meclizine (ANTIVERT) 25 mg, 3 times daily PRN metFORMIN (GLUCOPHAGE) 500 mg, Daily with breakfast montelukast (SINGULAIR) 10 mg, Every evening Nurtec 75 mg, Oral, Daily PRN nystatin (Mycostatin) 352128 UNIT/ML suspension TAKE 5ML BY MOUTH FOUR TIMES A DAY (MORNING, NOON, EVENING, BEDTIME) FOR 5 DAYS. omeprazole (PriLOSEC) [address] capsule Take 1 capsule every day by oral route. ondansetron (Zofran) 4 MG tablet TAKE 1 TABLET BY MOUTH EVERY 12 HOURS FOR 10 DAYS NEEDED FOR NAUSEA AND VOMITING solifenacin (VESICARE) 10 mg, Daily Thiamine Mononitrate 100 MG tablet TAKE 1 TABLET BY MOUTH IN THE MORNING AND IN THE EVENING Ventolin HFA 108 (90 Base) MCG/ACT inhaler 1 puff, 3 times daily PHYSICAL EXAM: Knee Musculoskeletal Exam Gait Limp: left Inspection Left Erythema: none Effusion: none Edema: none Ecchymosis: none Palpation Left Crepitus: patellofemoral Tenderness: present Medial joint line: moderate Range of Motion Left Active extension: 0 Active flexion: 115 Strength Left Extension: 4-/5. Extension is affected by pain. Flexion: 4-/5. Flexion is affected by pain. Instability Left Varus stress grade: normal Valgus stress grade: normal Medial Bart test: positive Vitals: There is no height or weight on file to calculate BMI. Tobacco Use: Medium Risk (03/10/2025) Received from [facility] Patient History Smoking Tobacco Use: Former Smokeless Tobacco Use: Never Passive Exposure: Not on file Alcohol Use: Not At Risk (04/08/2024) AUDIT-C Frequency of Alcohol Consumption: Monthly or less Average Number of Drinks: 1 or 2 Frequency of Binge Drinking: Less than monthly IMAGING: Procedures Orders Placed This Encounter Procedures XR knee 1 or 2 views left Views: AP Views: Lateral Reason for exam:: pain Is the patient ?: No ASSESSMENT: ICD-10-CM 1. Arthritis of left knee M17.12 2. Acute pain of left knee M25.562 XR knee 1 or 2 views left PLAN: We have discussed her case with her at length including her comorbidities of history of smoking (she quit 3 weeks ago), COPD and tachycardia as well as diabetes. She will need clearance from her family physician as well as her spaghetti machine operator for her comorbidities. We'll see her back on the day of surgery for a left total knee arthroplasty. We have discussed both surgical and nonsurgical treatment options with the patient and the risks and benefits associated with both. The patient is requesting surgical intervention because the patient's symptoms were affecting the patient's activities of daily living and ability to sleep. The patient's symptoms were unresponsive to outpatient treatment options. After lengthy discussions involving but not limited to both surgical and nonsurgical treatment options the patient has requested surgical intervention and we will see them back on the day of surgery. The patient understands the risks of said treatment. We have discussed both surgical and nonsurgical treatment options with the patient at length and the risks and benefits associated with both. The patient is requesting surgical intervention because they have not responded to outpatient treatment options including but not limited to rest ice, and home exercise program. Pain and decreased range of motion are affecting the patient''s ability to sleep and activities of daily living and we have recommended surgical intervention. We recommended surgery in the form of a total knee arthroplasty. Factors including the patient's age and longevity of prosthesis, usual postoperative course, and possible need for revision in the future, and leg length inequality postoperatively were discussed at length. We have discussed with the patient that this is a major orthopedic procedure. We discussed that the patient may require more than the average 30 MED limited and may require greater than 7 days narcotic treatment postoperatively. Therefore, patient's narcotic usage will be tailored on an individual basis. If this patient at the time of surgery has any of the following: Morbidities including but not limited to history of falling, cognitive impairment, BMI greater than 30, end-stage renal disease, respiratory failure, heart failure, kidney failure, liver failure, diabetes, cardiac event in the last year, sleep apnea, disorder, excessive tobacco use, if at the time of surgery the patient is greater than 80 years old, or the patient requires discharge to a half-way facility, the patient may require to have additional inpatient hospital stay days following the surgery. Physical therapy is contraindicated in this patient''s case because of the [id number] articulation of the patient's knee.. Questions answered in laymen terms at the bedside. The diagnosis, home exercise plan and any ongoing restrictions/ recommendations reviewed. If unable to be reached in office, I recommend evaluation at nearest Emergency Room if any symptoms worsened or new symptoms develop for requiring urgent evaluation. documented in this encounter [facility] 03-04-2025 History of Present illness Narrative Patient: Rock Herrera : 1970 PCP: Robert Giron MD SUBJECTIVE This is a 54 y.o. female that presents today 7wks /p right 2nd interspace neurectomy with right 2nd digit flexor tenotomy and total permanent nail avulsion to the right 2nd toe Pt denies n/f/v/c and has diminished pain to post op site. Pt states that they have been weight-bearing to post op foot Pt presents today for follow up. Patient is type 2 diabetic Patient also presents today for follow up of right ankle sprain and has not been using walking boot and anti-inflammatories and ice with finishing PT with slight improvement. Patient rates pain a 5/10. Allergies: Allergies Allergen Reactions Codeine Hives and Rash Other Reaction(s): Other, Unknown Fish Allergy Hives and Rash Iodinated Contrast Media Anaphylaxis Patient started to have SOB and felt faint Other Hives Other Reaction(s): other Atomoxetine Hcl Palpitations Other Reaction(s): GI Disturbance, Other: See Comments palpitations Bupropion Palpitations Other Reaction(s): GI Disturbance, other, Other: See Comments palpitations Doxycycline Palpitations Other Reaction(s): GI Disturbance, Other, Other: See Comments, Unknown palpitations Gabapentin Other Reaction(s): Unknown Oxcarbazepine GI intolerance, Hives and Palpitations palpitations Ropinirole Other Reaction(s): Altered mental status Other Reaction(s): Other Ziprasidone Hcl Hives and Palpitations palpitations Aloe Facial numbness/tongue numbness Amitriptyline Other Reaction(s): Abnormal Behavior, Mental Status Change, other, Vomiting hallucinate [place] Saline Nasal Gel [Aloe-Sodium Chloride] Facial numbness/tongue [...] Unknown, Vomiting, Vomiting, Vomiting Other Reaction(s): other Sulfamethoxazole Other Reaction(s): Other (See Comments), Unknown [...] Wound Dressing Adhesive Rash Other Reaction(s): other Other Reaction(s): Other rash Ziprasidone Palpitations Other Reaction(s): other, Unknown Past Medical History: Past Medical History: Diagnosis Date Asthma ([facility]) Bipolar disorder ([facility]) Bunion COPD (chronic obstructive pulmonary disease) ([facility]) Depression Diabetes ([facility]) Fallen arches Fibromyalgia GERD (gastroesophageal reflux disease) Hammer toe Hypertension Kidney stones [place] (myocardial infarction) ([facility]) Migraine Mitral valve prolapse Downey's neuroma Onychomycosis Osteoarthritis Oxygen dependent Plantar fasciitis Sleep apnea SVT (supraventricular tachycardia) ([facility]) Tinea pedis Medications: Current Outpatient Medications: calcium carbonate 1500 (600 Ca) MG tablet, TAKE ONE TABLET BY MOUTH TWICE A DAY, Disp: 60 tablet, Rfl: 11 Ajovy 225 MG/1.5ML auto-injector, INJECT 1 PEN (225 MG) UNDER THE SKIN EVERY 30 (THIRTY) DAYS, Disp: 1.5 mL, Rfl: 11 albuterol (2.5 MG/3ML) 0.083% nebulizer solution, Take 2.5 mg by nebulization every 6 (six) hours., Disp: , Rfl: Alcohol Swabs (Global Alcohol Prep Ease) 70 % pads, APPLY 1 PAD TOPICALLY EVERY 14 (FOURTEEN) DAYS., Disp: , Rfl: alendronate (Fosamax) 70 MG tablet, TAKE ONE TABLET BY MOUTH ONCE WEEKLY 30 MINUTES BEFORE THE FIRST FOOD, BEVERAGE, OR MEDICINE OF THE DAY WITH PLAIN WATER, Disp: 4 tablet, Rfl: 11 ALPRAZolam (Xanax) 1 MG tablet, Take 1 mg by mouth as needed at bedtime for sleep., Disp: , Rfl: ARIPiprazole (Abilify) 15 MG tablet, Take 15 mg by mouth Daily, Disp: , Rfl: atorvastatin (Lipitor) 80 MG tablet, Take 80 mg by mouth in the morning., Disp: , Rfl: carvedilol (Coreg) 25 MG tablet, Take 25 mg by mouth in the morning and 25 mg before bedtime., Disp: , Rfl: cetirizine (ZyrTEC) 10 MG tablet, Take 10 mg by mouth in the morning., Disp: , Rfl: Continuous Glucose Sensor (FreeStyle [place]am 2 Sensor[place] [facility] [place] USE DIRECTED AND CHANGE EVERY 14 DAYS, Disp: , Rfl: Continuous Glucose Transmitter (Dexcom G6 transmitter) [facility] [place] 1 UNIT BY MISCELLANEOUS ROUTE EVERY 3 (THREE) MONTHS., Disp: , Rfl: dilTIAZem CD (Cardizem CD) 120 MG 24 hr capsule, Take 120 mg by mouth Daily, Disp: , Rfl: EPINEPHrine (Epipen) 0.3 MG/0.3ML injection syringe, INJECT 0.3MG INTO THE APPROPRIATE MUSCLE NEEDED FOR ALLERGIC REACTION UP TO 1 DOSE, Disp: , Rfl: ergocalciferol (Vitamin D2) 1.25 MG (24231 UT) capsule, Take 1 capsule by mouth 1 (one) time per week., Disp: , Rfl: furosemide (Lasix) 20 MG tablet, Take 20 mg by mouth in the morning., Disp: , Rfl: lidocaine (Lidoderm) 5 % patch, PLACE 1 PATCH ON THE SKIN DAILY. REMOVE & DISCARD PATCH WITHIN 12 HOURS OR DIRECTED BY MD, Disp: , Rfl: lidocaine (Xylocaine) 5 % ointment, APPLY TO THE AFFECTED AREA THREE TIMES DAILY NEEDED FOR PAIN, Disp: 150 g, Rfl: 4 loperamide (Imodium) 2 MG capsule, TAKE 2 [...] mouth in the evening., Disp: , Rfl: nystatin (Mycostatin) 512543 UNIT/ML suspension, TAKE 5ML BY MOUTH FOUR TIMES A DAY (MORNING, NOON, EVENING, BEDTIME) FOR 5 DAYS., Disp: , Rfl: omeprazole (PriLOSEC) [address] capsule, Take 1 capsule every day by oral route., Disp: , Rfl: ondansetron (Zofran) 4 MG tablet, TAKE 1 TABLET BY MOUTH EVERY 12 HOURS FOR 10 DAYS NEEDED FOR NAUSEA AND VOMITING, Disp: , Rfl: primidone (Mysoline) 50 MG tablet, Take 0.5 tablets (25 mg) by mouth at bedtime, Disp: 15 tablet, Rfl: 2 solifenacin (VESIcare) 10 MG tablet, Take 10 mg by mouth Daily, Disp: , Rfl: Thiamine Mononitrate 100 MG tablet, TAKE 1 TABLET BY MOUTH IN THE MORNING AND IN THE EVENING, Disp: , Rfl: Ventolin HFA 108 (90 Base) MCG/ACT inhaler, Inhale 1 puff in the morning and 1 puff in the evening and 1 puff before bedtime., Disp: , Rfl: Current Facility-Administered Medications: lidocaine (Xylocaine) 5 % ointment, , Topical, Once, Nikki Vergara NP ROS: General: denies fever, chills, fatigue, malaise GI: denies abdominal pain or ulcerations with anti-inflammatory medication OBJECTIVE LE EXAM: Derm: Skin intact to right foot with negative erythema, negative drainage, minimal edema with negative clinical signs of infection. Right 2nd toe permanent nail avulsion has dry wound bed diminished Edema noted to lateral aspect to right ankle Vascular: Palpable pedal pulses to right foot Neuro: Gross sensation intact to right foot. Musculoskeletal: Negative pain on palpation to right calf. positive pain on palpation to right ATF ligament negative palpation to right CFL ligament with negative anterior drawer and negative palpation of right 5th metatarsal base Ortho: Ankle range of motion less than 10 degrees of dorsiflexion at right ankle joint. Rectus right 2nd digit ASSESSMENT 5wks s/p right 2nd interspace neurectomy with right 2nd toe flexor tenotomy and right total permanent nail avulsion of the 2nd digit 1. Mild ankle sprain, right, initial encounter 2. Paronychia, toe, right 3. Diabetes 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 polyneuropathy, with long-term current use of insulin (HCC) PLAN Continue with normal shoe gear Recommended to apply ice to affected areas for 20 minutes, twice daily. Ice should not be applied directly to skin. Continue with home going physical therapy exercises Patient dispensed soft ankle brace ([id number]) prefabricated multiligamentous AFO today.to maintain 90 degree foot to ankle position. ABN signed and in chart for device. The boot was assembled and adjusted for proper fitting by Martin Arango DPM and staff. A verbal order was given for dispensing of device. The patient is ambulatory and may benefit functionally from this device. It may be used for the following conditions as noted per medical diagnosis in the EMR Pt to take nsaids as needed PRN pain Martin Arango DPM documented in this encounter [facility] 02-25-2025 History of Present illness Narrative Images from the original note were not included. Subjective Rock Herrera is a 54 y.o. female who presents for migraine History of Present Illness The patient is a 54-year-old female who presents for migraines and insomnia. She has been experiencing fatigue and migraines, which have been occurring 2 to 3 times a week. These migraines can sometimes last the entire day. She recently resumed her Ajovy treatment after a 5-month hiatus and has been on Ajovy for 2 days. She also uses Nurtec as needed. She reports that she experiences mild migraines within 1 to 2 days of taking Ajovy, but these symptoms subside thereafter. She is currently taking Abilify in the morning and is considering adding ZzzQuil to her regimen to aid with sleep. She has previously tried tizanidine and cyproheptadine for sleep, but found them ineffective. She has also tried Silenor and doxepin. Ambien was prescribed to her in the past, but it resulted in severe insomnia. Primidone caused her to lose weight. SOCIAL HISTORY: Tobacco: She quit smoking. MEDICATIONS CURRENT MEDS: Ajovy Monthly Start Date: 02/23/2025 Abilify Oral Daily Nurtec As needed PREVIOUS MEDS: Tizanidine Reason for Discontinuation: Didn't work Cyproheptadine Reason for Discontinuation: Didn't work Ambien Reason for Discontinuation: Caused severe insomnia Primidone Reason for Discontinuation: Caused looseness Review of Systems Const: Denies appetite change, [...] positive findings, which shall supersede the foregoing. Objective Blood pressure 122/76, height 5' 4 , weight 154 lb. Physical Exam GENERAL EXAMINATION Appearance: in no acute [...] equal, round, and reactive to light and accommodation, both directly and consensually. Visual garcia were full [...] in all four extremities, including at least art display maker, finger abductors, biceps, triceps, deltoid, toe flexors [...] and spasticity are not evident. Arm swing is normal. Toe, heel, and tandem walking are performed without difficulty. Musculoskeletal: Trigger-point tenderness was absent. There is no spasm of the trapezii or paraspinals. Results Assessment & Plan 1. Migraine. She recently resumed Ajovy after a 5-month hiatus, which had led to an increase in headache frequency to 2-3 times a week. Ajovy is used for prevention, and she takes Nurtec as needed for acute episodes. The effectiveness of Ajovy in reducing headache frequency will be monitored. A prescription for Nurtec will be sent to [facility] in [facility]. 2. Insomnia. She reports difficulty falling asleep and has previously tried tizanidine and cyproheptadine without success. Ambien caused severe insomnia, and primidone led to weight loss. Silenor will be prescribed to help with sleep, and the prescription will be sent to [facility] in [facility]. She is advised that ZzzQuil is safe to take with her current medications. 3. Ajovy for prevention 4. Nurtec for abortive treatments vs Ubrelvy 5 Doxepin 3 mg at bed for sleep 6. I counseled the patient on the possible side effects and interactions of medications. This clinical note was created utilizing [employer] documentation system. All information has been thoroughly reviewed, corrected as necessary, and authenticated by the provider to ensure accuracy and completeness. On occasion, [employer] documentation system erroneously drops words or replaces a spoken word with a similar sounding word. Please notify with any questions or concerns regarding this clinical note. documented in this encounter [facility] 02-24-2025 History of Present illness Narrative Images from the original note were not included. Subjective Patient ID: Rock Herrera is a 54 y.o. female. Rock presents today for a follow-up from the emergency room. She is still having left sided chest wall pain. She was told she has a pulled muscle . It is still painful. They gave her 1 Vicodin to go but nothing else. It is still painful. She has other concerns too. She is having significant left knee pain. She has a torn cartilage and is supposed to be seeing ortho on March 09. She was told she needs a knee replacement but need it to stop smoking so she stopped smoking. She will likely need surgery of some sort-either arthroscopy or knee replacement. It is affecting her quality of life. It is painful to do ADLs and IADLs. She needs a new glucometer and test strips. She is also due for a colonoscopy. She has a history of colon polyps. She would like to go to [facility] have that done. The specialists that she had before that did it is no longer practicing in the area. She is willing to go to a new specialist. She her Dr. Quinones goes to [facility] and requested him. The following portions of the patient's history were reviewed and updated as appropriate: allergies, current medications, past family history, past medical history, past social history, past surgical history, problem list, and medication reconciliation was completed including current medication and post discharge medication. Review of Systems Constitutional: Negative. Respiratory: Negative. Cardiovascular: Positive for chest pain. Gastrointestinal: Positive for diarrhea. Musculoskeletal: Positive for arthralgias. Objective Physical Exam Vitals reviewed. Constitutional: General: She is not in acute distress. Appearance: She is overweight. She is not ill-appearing. Neck: Thyroid: No thyroid mass, thyromegaly or thyroid tenderness. Trachea: Trachea and phonation normal. Cardiovascular: Rate and Rhythm: Normal rate and regular rhythm. Heart sounds: Normal heart sounds. No murmur heard. Pulmonary: Effort: Pulmonary effort is normal. No respiratory distress. Breath sounds: Normal breath sounds. No wheezing, rhonchi or rales. Chest: Chest wall: Tenderness present. Musculoskeletal: Cervical back: Neck supple. Comments: Two segmental subluxations of the thoracic spine on the left side Lymphadenopathy: Cervical: No cervical adenopathy. Neurological: Mental Status: She is alert. Psychiatric: Attention and Perception: Attention normal. Mood and Affect: Mood and affect normal. Speech: Speech normal. Behavior: Behavior normal. Behavior is cooperative. Thought Content: Thought content normal. Cognition and Memory: Cognition normal. Judgment: Judgment normal. Assessment/Plan Rock was seen today for er/ chest pain. Diagnoses and all orders for this visit: Chest wall pain Likely musculoskeletal. She did have 2 segmental subluxations which were corrected with OMT. Complex tear of medial meniscus of left knee, sequela - traMADoL (ULTRAM) 50 mg tablet; Take 1 tablet (50 mg total) by mouth every 8 (eight) hours as needed for pain. Will give a short course of tramadol for her torn cartilage but then surgeon is to manage. Polyp of colon, unspecified part of colon, unspecified type - [facility] [place] [facility] [place], [place]; Future Refer to surgeon for colonoscopy to screen for colon cancer Diabetes mellitus without complication ([facility]) - Discontinue: blood-glucose meter (TRUE METRIX GLUCOSE METER) misc; 1 Unit by miscellaneous route in the morning. - Discontinue: blood sugar diagnostic (TRUE METRIX GLUCOSE TEST STRIP) strip; 1 strip by other route as needed for high blood sugar. New rx for glucometer and test strips sent in. The dexcom wouldn't stay on. She can check once a day. Other orders - naloxone (NARCAN) 4 mg/actuation spray,non-aerosol nasal spray; Administer 1 spray (4 mg total) into alternating nostrils as needed for opioid reversal. documented in this encounter [facility] 02-08-2025 Telephone encounter Note She called noting have been sick for 5 days now and cx her last PT today for R shoulder. I noted that and she said she'd like to recover and I informed of her PT eval for R ankle is 02/11/25. [facility] 02-08-2025 Miscellaneous Notes She called noting have been sick for 5 days now and cx her last PT today for R shoulder. I noted that and she said she'd like to recover and I informed of her PT eval for R ankle is 02/11/25. documented in this encounter [facility] 02-04-2025 History of Present illness Narrative Patient: Rock Herrera : 1970 PCP: Robert Giron MD SUBJECTIVE This is a 54 y.o. female that presents today 35 days s/p right 2nd interspace neurectomy with right 2nd digit flexor tenotomy and total permanent nail avulsion to the right 2nd toe Pt denies n/f/v/c and has diminished pain to post op site. Pt states that they have been weight-bearing to post op foot Pt presents today for follow up. Patient is type 2 diabetic Patient also presents today for follow up of right ankle sprain and has been using walking boot and anti-inflammatories and ice with negative improvement. Patient rates pain a 7/10. Allergies: Allergies Allergen Reactions Codeine Hives and Rash Other Reaction(s): Other, Unknown Fish Allergy Hives and Rash Iodinated Contrast Media Anaphylaxis Patient started to have SOB and felt faint Other Hives Other Reaction(s): other Atomoxetine Hcl Palpitations Other Reaction(s): GI Disturbance, Other: See Comments palpitations Bupropion Palpitations Other Reaction(s): GI Disturbance, other, Other: See Comments palpitations Doxycycline Palpitations Other Reaction(s): GI Disturbance, Other, Other: See Comments, Unknown palpitations Gabapentin Other Reaction(s): Unknown Oxcarbazepine GI intolerance, Hives and Palpitations palpitations Ropinirole Other Reaction(s): Altered mental status Other Reaction(s): Other Ziprasidone Hcl Hives and Palpitations palpitations Aloe Facial numbness/tongue numbness Amitriptyline Other Reaction(s): Abnormal Behavior, Mental Status Change, other, Vomiting hallucinate [place] Saline Nasal Gel [Aloe-Sodium Chloride] Facial numbness/tongue [...] Unknown, Vomiting, Vomiting, Vomiting Other Reaction(s): other Sulfamethoxazole Other Reaction(s): Other (See Comments), Unknown [...] Wound Dressing Adhesive Rash Other Reaction(s): other Other Reaction(s): Other rash Ziprasidone Palpitations Other Reaction(s): other, Unknown Past Medical History: Past Medical History: Diagnosis Date Asthma ([facility]) Bipolar disorder ([facility]) Bunion COPD (chronic obstructive pulmonary disease) ([facility]) Depression Diabetes ([facility]) Fallen arches Fibromyalgia GERD (gastroesophageal reflux disease) Hammer toe Hypertension Kidney stones [place] (myocardial infarction) ([facility]) Migraine Mitral valve prolapse Downey's neuroma Onychomycosis Osteoarthritis Oxygen dependent Plantar fasciitis Sleep apnea SVT (supraventricular tachycardia) ([facility]) Tinea pedis Medications: Current Outpatient Medications: calcium carbonate 1500 (600 Ca) MG tablet, TAKE ONE TABLET BY MOUTH TWICE A DAY, Disp: 60 tablet, Rfl: 11 lidocaine (Xylocaine) 5 % ointment, APPLY TO THE AFFECTED AREA THREE TIMES DAILY NEEDED FOR PAIN, Disp: 150 g, Rfl: 4 Ajovy 225 MG/1.5ML auto-injector, INJECT 1 PEN (225 MG) UNDER THE SKIN EVERY 30 (THIRTY) DAYS, Disp: 1.5 mL, Rfl: 11 albuterol (2.5 MG/3ML) 0.083% nebulizer solution, Take 2.5 mg by nebulization every 6 (six) hours., Disp: , Rfl: Alcohol Swabs (Global Alcohol Prep Ease) 70 % pads, APPLY 1 PAD TOPICALLY EVERY 14 (FOURTEEN) DAYS., Disp: , Rfl: alendronate (Fosamax) 70 MG tablet, TAKE ONE TABLET BY MOUTH ONCE WEEKLY 30 MINUTES BEFORE THE FIRST FOOD, BEVERAGE, OR MEDICINE OF THE DAY WITH PLAIN WATER, Disp: 4 tablet, Rfl: 11 ALPRAZolam (Xanax) 1 MG tablet, Take 1 mg by mouth as needed at bedtime for sleep., Disp: , Rfl: ARIPiprazole (Abilify) 15 MG tablet, Take 15 mg by mouth Daily, Disp: , Rfl: atorvastatin (Lipitor) 80 MG tablet, Take 80 mg by mouth in the morning., Disp: , Rfl: carvedilol (Coreg) 25 MG tablet, Take 25 mg by mouth in the morning and 25 mg before bedtime., Disp: , Rfl: cetirizine (ZyrTEC) 10 MG tablet, Take 10 mg by mouth in the morning., Disp: , Rfl: Continuous Glucose Sensor ([place]Style [place] 2 [place] [facility] [place] USE DIRECTED AND CHANGE EVERY 14 DAYS, Disp: , Rfl: Continuous Glucose Transmitter (Dexcom G6 transmitter[place] [facility] [place] 1 UNIT BY MISCELLANEOUS ROUTE EVERY 3 (THREE) MONTHS., Disp: , Rfl: dilTIAZem CD (Cardizem CD) 120 MG 24 hr capsule, Take 120 mg by mouth Daily, Disp: , Rfl: EPINEPHrine (Epipen) 0.3 MG/0.3ML injection syringe, INJECT 0.3MG INTO THE APPROPRIATE MUSCLE NEEDED FOR ALLERGIC REACTION UP TO 1 DOSE, Disp: , Rfl: ergocalciferol (Vitamin D2) 1.25 MG (59410 UT) capsule, Take 1 capsule by mouth 1 (one) time per week., Disp: , Rfl: furosemide (Lasix) 20 MG tablet, Take 20 mg by mouth in the morning., Disp: , Rfl: lidocaine (Lidoderm) 5 % patch, PLACE 1 PATCH ON THE SKIN DAILY. REMOVE & DISCARD PATCH WITHIN 12 HOURS OR DIRECTED BY MD, Disp: , Rfl: loperamide (Imodium) 2 MG capsule, TAKE 2 [...] mouth in the evening., Disp: , Rfl: nystatin (Mycostatin) 305840 UNIT/ML suspension, TAKE 5ML BY MOUTH FOUR TIMES A DAY (MORNING, NOON, EVENING, BEDTIME) FOR 5 DAYS., Disp: , Rfl: omeprazole (PriLOSEC) [address] capsule, Take 1 capsule every day by oral route., Disp: , Rfl: ondansetron (Zofran) 4 MG tablet, TAKE 1 TABLET BY MOUTH EVERY 12 HOURS FOR 10 DAYS NEEDED FOR NAUSEA AND VOMITING, Disp: , Rfl: oxyCODONE-acetaminophen (Percocet) 10-325 MG tablet, Take 1 tablet by mouth every 6 (six) hours if needed for severe pain for up to 5 days, Disp: 15 tablet, Rfl: 0 primidone (Mysoline) 50 MG tablet, Take 0.5 tablets (25 mg) by mouth at bedtime, Disp: 15 tablet, Rfl: 2 solifenacin (VESIcare) 10 MG tablet, Take 10 mg by mouth Daily, Disp: , Rfl: Thiamine Mononitrate 100 MG tablet, TAKE 1 TABLET BY MOUTH IN THE MORNING AND IN THE EVENING, Disp: , Rfl: Ventolin HFA 108 (90 Base) MCG/ACT inhaler, Inhale 1 puff in the morning and 1 puff in the evening and 1 puff before bedtime., Disp: , Rfl: Current Facility-Administered Medications: lidocaine (Xylocaine) 5 % ointment, , Topical, Once, Nikki Vergara NP ROS: General: denies fever, chills, fatigue, malaise GI: denies abdominal pain or ulcerations with anti-inflammatory medication OBJECTIVE LE EXAM: Derm: Skin intact to right foot with negative erythema, negative drainage, minimal edema with negative clinical signs of infection. Right 2nd toe permanent nail avulsion has dry wound bed Notable diminished Edema noted to lateral aspect to right ankle Vascular: Palpable pedal pulses to right foot Neuro: Gross sensation intact to right foot. Musculoskeletal: Negative pain on palpation to right calf. positive pain on palpation to right ATF ligament negative palpation to right CFL ligament with negative anterior drawer and negative palpation of right 5th metatarsal base Ortho: Ankle range of motion less than 10 degrees of dorsiflexion at right ankle joint. Rectus right 2nd digit X-ray XR ankle 3+ views right Imaging Result: Negative fractures visualized with notable large enthesophyte and notable hardware fixation to forefoot ASSESSMENT 15 days s/p right 2nd interspace neurectomy with right 2nd toe flexor tenotomy and right total permanent nail avulsion of the 2nd digit 1. Mild ankle sprain, right, initial encounter 2. Paronychia, toe, right 3. Diabetes 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 polyneuropathy, with long-term current use of insulin (HCC) PLAN Continue with normal shoe gear Recommend patient returned to walking boot Reviewed x-rays today with patient and ordered physical therapy Martin Arango DPM documented in this encounter [facility] 02-01-2025 Telephone encounter Note Pt is past 35 days post op with no refill due to pain management contract with us [facility] 02-01-2025 Miscellaneous Notes Pt is past 35 days post op with no refill due to pain management contract with us documented in this encounter [facility] 01-29-2025 Telephone encounter Note She called noting she has been getting sick this morning and is in the need to cx PT for today. I reminded and she confirmed her next PT 02/02. [facility] 01-29-2025 Miscellaneous Notes She called noting she has been getting sick this morning and is in the need to cx PT for today. I reminded and she confirmed her next PT 02/02. documented in this encounter [facility] 01-25-2025 History of Present illness Narrative Images from the original note were not included. Physical Therapy Evaluation Visit Patient Name: Rock Herrera Today's Date: 01/25/2025 Encounter Diagnoses Name Primary? Contusion of right shoulder, subsequent encounter Yes Right shoulder pain, unspecified chronicity Visit number: 1 Timed Code Treatment Minutes: 44 minutes Total Treatment Time: 52 minutes Time In: 1400 Time Out: 1452 History: Pt states she has been falling quite a bit lately, knees are giving out. Last fall she landed on her right shoulder. States she has fractured right shoulder in last. Pt states she is right hand dominant and can only lift right arm so scott. No imaging has been done at this point. Precautions: Falls Subjective: right shoulder, mostly anterior Pain: 02/25 Objective: PT Evaluation (01/25/2025) RIGHT SHOULDER AROM: 88 degrees flexion, 85 degrees abduction, 45 degrees ER PROM: 95 degrees flexion, 100 degrees abduction, 62 degrees ER Joint play: hypermobility right shoulder with inferior and posterior glides Strength: ext and IR 4/5 due to pain; flex, abd, and ER 3+ to 4- in neutral due to pain, empty can 3-/5. Palpation: moderate tenderness right bicep tendon and rotator cuff Special Test: Pain with [place] and [place]; negative speeds and obriens Treatment: Education: HEP education with demonstration, Educated on Eval Findings and POC Manual Therapy: (8 minutes) Passive ROM, Joint mobilization, Soft Tissue Mobilization, Myofascial Release, Muscle Energy Technique, Neural Mobilization, Myofascial Cupping, Dry Needling, IASTM, and Scar mobilization as needed. PROM and gentle mobs to right shoulder in supine Therapeutic Exercise: (16 minutes) Strength, Endurance, Flexibility, ROM, HEP, Neural [...] Flow Restriction Training (BFRT) as needed. Modalities: (8 minutes, limited due to pt having to use restroom) Heat, Ice, Electrical Stimulation, Ultrasound, Cervical Mechanical Traction, Lumbar Mechanical Traction, Iontophoresis, and Fluidotherapy as needed. IFC/HP to right shoulder in supine at end of session. Assessment: Pt is 54 y/o female with complaints of right shoulder pain following fall on right side. Pt presents with limited ROM of right shoulder. Hypermobility noted with inferior and posterior glides. Limited strength due to pain. Speeds and Martin's testing are negative. Discomfort noted with empty can testing and shoulder impingement testing. Pt will benefit from further PT. Outcome Measure: Upper Extremity Functional Index (UEFI): 44/80 Rehab Diagnosis: right shoulder pain and weakness Short Term Goal: To be met in 2 weeks Goal 1: Pt to be instructed in home exercise program. Prison Goals: To be met in 10 weeks Goal 1: Pt to report independence and compliance with home program. Goal 2: Pt to achieve 130 degrees of right shoulder flexion to assist with overhead reaching. Goal 3: Pt to achieve 120 degrees of right shoulder abduction to assist with grooming hair. Goal 4: Pt to achieve 4 to 4+/5 strength right shoulder in all planes to assist with functional tasks and lifting. Goal 5: Pt to score no less than 60/80 on UEFI indicating improved QOL. Pt will benefit from skilled PT for 2-3x/week from 01/25/2025 to 04/19/2025 to address the above impairments. I hereby deem this POC medically necessary. Please sign below. Date: documented in this encounter [facility] 01-25-2025 Telephone encounter Note Pt asking for pain med refill please, send to [facility] [place] [facility] 01-25-2025 Miscellaneous Notes Pt asking for pain med refill please, send to [facility] [place] documented in this encounter [facility] 01-21-2025 Hospital Discharge instructions Patient Education 01/21/2025 12:27:23 Kidney Stones, Ivwd-[id number] Kidney Stones Kidney stones are rock-like masses that form inside of the kidneys. Kidneys are organs that make pee (urine). A kidney stone may move into other parts of the urinary tract, including: The tubes that connect the kidneys to the bladder (ureters). The bladder. The tube that carries urine out of the body (urethra). Kidney stones can cause very bad pain and can block the flow of pee. The stone usually leaves your body through your pee. A doctor may need to take out the stone. What are the causes? Kidney stones may be caused by: Too much calcium in the body. This may be caused by too much parathyroid hormone in the blood. Uric acid crystals in the bladder. The body makes uric acid when you eat certain foods. Narrowing of one or both of the ureters. A kidney blockage that you were born with. Past surgery on the kidney or the ureters. What increases the risk? You are more likely to develop this condition if: You have had a kidney stone in the past. Other people in your family have had kidney stones. You do not drink enough water. You eat a diet that is high in protein, salt (sodium), or sugar. You are very overweight (obese). What are the signs or symptoms? Symptoms of a kidney stone may include: Pain in the side of the belly, right below the ribs. Pain usually spreads to the groin. Needing to pee often or right away. Pain when peeing. Blood in your pee. Feeling like you may vomit (nauseous). Vomiting. Fever and chills. How is this treated? Treatment depends on the size, location, and makeup of the kidney stones. The stones will often pass out of the body when you pee. You may need to: Drink more fluid to help pass the stone. ?In some cases, you may be given fluids through an IV tube at the hospital. Take medicine for pain. Change your diet to help keep kidney stones from coming back. Sometimes, you may need: A procedure to break up kidney stones using a beam of light (laser) or shock waves. Surgery to remove the kidney stones. Follow these instructions at home: Medicines Take [id number] and prescription medicines only as told by your doctor. Ask your doctor if the medicine prescribed to you requires you to avoid driving or using machinery. Eating and drinking Drink enough fluid to keep your pee pale yellow. ?You may be told to drink at least 8 10 glasses of water each day. This will help you pass the stone. If told by your doctor, change your diet. You may be told to: ?Limit how much salt you eat. ?Eat more fruits and vegetables. ?Limit how much meat, poultry, fish, and eggs you eat. Follow instructions from your doctor about what you may eat and drink. General instructions Collect pee samples as told by your doctor. You may need to collect a pee sample: ?24 hours after a stone comes out. ?8 12 weeks after a stone comes out, and every 6 12 months after that. Strain your pee every time you pee. Use the strainer that your doctor recommends. Do not throw out the stone. Keep it so that it can be tested by your doctor. Keep all follow-up visits. You may need X-rays and ultrasounds to make sure the stone has come out. How is this prevented? To prevent another kidney stone: Drink enough fluid to keep your pee pale yellow. This is the best way to prevent kidney stones. Eat healthy foods. Avoid certain foods as told by your doctor. You may be told to eat less protein. Stay at a healthy weight. Where to find more information National Kidney Foundation (NKF): kidney.org Urology Care Foundation (UCF): urologyhealth.org Contact a doctor if: You have pain that gets worse or does not get better with medicine. Get help right away if: You have a fever or chills. You get very bad pain. You get new pain in your belly. You faint. You cannot pee. This information is not intended to replace advice given to you by your health care provider. Make sure you discuss any questions you have with your health care provider. Document Revised: 03/29/2023 Document Reviewed: 03/29/2023 [employer] Patient Education 2023 [employer]. Follow Up Care 01/05/2025 11:26:46 With:[facility] Address: When: Unknown Comments:For procedure as scheduled. [facility] 01-21-2025 Evaluation + Plan note Diagnostic Tests PendingUrine Cytology ([facility]) 01/21/25 [facility] 01-21-2025 Note Patient Education Urology Kidney Stones Kidney stones are rock-like masses that form inside of the kidneys. Kidneys are organs that make pee (urine). A kidney stone may move into other parts of the urinary tract, including: ??? The tubes that connect the kidneys to the bladder (ureters). ??? The bladder. ??? The tube that carries urine out of the body (urethra). Kidney stones can cause very bad pain and can block the flow of pee. The stone usually leaves your body through your pee. A doctor may need to take out the stone. What are the causes? Kidney stones may be caused by: ??? Too much calcium in the body. This may be caused by too much parathyroid hormone in the blood. ??? Uric acid crystals in the bladder. The body makes uric acid when you eat certain foods. ??? Narrowing of one or both of the ureters. ??? A kidney blockage that you were born with. ??? Past surgery on the kidney or the ureters. What increases the risk? You are more likely to develop this condition if: ??? You have had a kidney stone in the past. ??? Other people in your family have had kidney stones. ??? You do not drink enough water. ??? You eat a diet that is high in protein, salt (sodium), or sugar. ??? You are very overweight (obese). What are the signs or symptoms? Symptoms of a kidney stone may include: ??? Pain in the side of the belly, right below the ribs. Pain usually spreads to the groin. ??? Needing to pee often or right away. ??? Pain when peeing. ??? Blood in your pee. ??? Feeling like you may vomit (nauseous). ??? Vomiting. ??? Fever and chills. How is this treated? Treatment depends on the size, location, and makeup of the kidney stones. The stones will often pass out of the body when you pee. You may need to: ??? Drink more fluid to help pass the stone. ? In some cases, you may be given fluids through an IV tube at the hospital. ??? Take medicine for pain. ??? Change your diet to help keep kidney stones from coming back. Sometimes, you may need: ??? A procedure to break up kidney stones using a beam of light (laser) or shock waves. ??? Surgery to remove the kidney stones. Follow these instructions at home: Medicines ??? Take [id number] and prescription medicines only as told by your doctor. ??? Ask your doctor if the medicine prescribed to you requires you to avoid driving or using machinery. Eating and drinking ??? Drink enough fluid to keep your pee pale yellow. ? You may be told to drink at least 8?10 glasses of water each day. This will help you pass the stone. ??? If told by your doctor, change your diet. You may be told to: ? Limit how much salt you eat. ? Eat more fruits and vegetables. ? Limit how much meat, poultry, fish, and eggs you eat. ??? Follow instructions from your doctor about what you may eat and drink. General instructions ??? Collect pee samples as told by your doctor. You may need to collect a pee sample: ? 24 hours after a stone comes out. ? 8?12 weeks after a stone comes out, and every 6?12 months after that. ??? Strain your pee every time you pee. Use the strainer that your doctor recommends. ??? Do not throw out the stone. Keep it so that it can be tested by your doctor. ??? Keep all follow-up visits. You may need X-rays and ultrasounds to make sure the stone has come out. How is this prevented? To prevent another kidney stone: ??? Drink enough fluid to keep your pee pale yellow. This is the best way to prevent kidney stones. ??? Eat healthy foods. ??? Avoid certain foods as told by your doctor. You may be told to eat less protein. ??? Stay at a healthy weight. Where to find more information ??? National Kidney Foundation (NKF): kidney.org ??? Urology Care Foundation (UCF): urologyhealth.org Contact a doctor if: ??? You have pain that gets worse or does not get better with medicine. Get help right away if: ??? You have a fever or chills. ??? You get very bad pain. ??? You get new pain in your belly. ??? You faint. ??? You cannot pee. This information is not intended to replace advice given to you by your health care provider. Make sure you discuss any questions you have with your health care provider. Document Revised: 03/29/2023 Document Reviewed: 03/29/2023 [employer] Patient Education ? 2023 [employer]. [facility] 01-14-2025 History of Present illness Narrative Patient: Rock Herrera : 1970 PCP: Robert Giron MD SUBJECTIVE This is a 54 y.o. female that presents today 15 days s/p right 2nd interspace neurectomy with right 2nd digit flexor tenotomy and total permanent nail avulsion to the right 2nd toe Pt denies n/f/v/c and has diminished pain to post op site. Pt states that they have been keeping dressing dry and intact and have been weight-bearing to post op foot Pt presents today for follow up. Patient is type 2 diabetic Patient also presents today for follow up of right ankle sprain and has been using walking boot and anti-inflammatories and ice with some improvement. Allergies: Allergies Allergen Reactions Codeine Hives and Rash Other Reaction(s): Other, Unknown Fish Allergy Hives and Rash Iodinated Contrast Media Anaphylaxis Patient started to have SOB and felt faint Other Hives Other Reaction(s): other Atomoxetine Hcl Palpitations Other Reaction(s): GI Disturbance, Other: See Comments palpitations Bupropion Palpitations Other Reaction(s): GI Disturbance, other, Other: See Comments palpitations Doxycycline Palpitations Other Reaction(s): GI Disturbance, Other, Other: See Comments, Unknown palpitations Gabapentin Other Reaction(s): Unknown Oxcarbazepine GI intolerance, Hives and Palpitations palpitations Ropinirole Other Reaction(s): Altered mental status Other Reaction(s): Other Ziprasidone Hcl Hives and Palpitations palpitations Aloe Facial numbness/tongue numbness Amitriptyline Other Reaction(s): Abnormal Behavior, Mental Status Change, other, Vomiting hallucinate [place] Saline Nasal Gel [Aloe-Sodium Chloride] Facial numbness/tongue [...] Unknown, Vomiting, Vomiting, Vomiting Other Reaction(s): other Sulfamethoxazole Other Reaction(s): Other (See Comments), Unknown [...] Wound Dressing Adhesive Rash Other Reaction(s): other Other Reaction(s): Other rash Ziprasidone Palpitations Other Reaction(s): other, Unknown Past Medical History: Past Medical History: Diagnosis Date Asthma Bipolar disorder Bunion COPD (chronic obstructive pulmonary disease) ([facility]) Depression ([facility] Diabetes ([facility]) Fallen arches Fibromyalgia GERD (gastroesophageal reflux disease) Hammer toe Hypertension ([facility]) Kidney stones [place] (myocardial infarction) ([facility]) Migraine Mitral valve prolapse Downey's neuroma Onychomycosis Osteoarthritis Oxygen dependent Plantar fasciitis Sleep apnea SVT (supraventricular tachycardia) ([facility]) Tinea pedis Medications: Current Outpatient Medications: calcium carbonate 1500 (600 Ca) MG tablet, TAKE ONE TABLET BY MOUTH TWICE A DAY, Disp: 60 tablet, Rfl: 11 lidocaine (Xylocaine) 5 % ointment, APPLY TO THE AFFECTED AREA THREE TIMES DAILY NEEDED FOR PAIN, Disp: 150 g, Rfl: 4 Ajovy 225 MG/1.5ML auto-injector, INJECT 1 PEN (225 MG) UNDER THE SKIN EVERY 30 (THIRTY) DAYS, Disp: 1.5 mL, Rfl: 11 albuterol (2.5 MG/3ML) 0.083% nebulizer solution, Take 2.5 mg by nebulization every 6 (six) hours., Disp: , Rfl: Alcohol Swabs (Global Alcohol Prep Ease) 70 % pads, APPLY 1 PAD TOPICALLY EVERY 14 (FOURTEEN) DAYS., Disp: , Rfl: alendronate (Fosamax) 70 MG tablet, TAKE ONE TABLET BY MOUTH ONCE WEEKLY 30 MINUTES BEFORE THE FIRST FOOD, BEVERAGE, OR MEDICINE OF THE DAY WITH PLAIN WATER, Disp: 4 tablet, Rfl: 11 ALPRAZolam (Xanax) 1 MG tablet, Take 1 mg by mouth as needed at bedtime for sleep., Disp: , Rfl: ARIPiprazole (Abilify) 15 MG tablet, Take 15 mg by mouth Daily, Disp: , Rfl: atorvastatin (Lipitor) 80 MG tablet, Take 80 mg by mouth in the morning., Disp: , Rfl: carvedilol (Coreg) 25 MG tablet, Take 25 mg by mouth in the morning and 25 mg before bedtime., Disp: , Rfl: cetirizine (ZyrTEC) 10 MG tablet, Take 10 mg by mouth in the morning., Disp: , Rfl: Continuous Glucose Sensor (FreeStyle [place] 2 Sensor[place] [facility] [place] USE DIRECTED AND CHANGE EVERY 14 DAYS, Disp: , Rfl: Continuous Glucose Transmitter (Dexcom G6 transmitter[place] [facility] [place] 1 UNIT BY MISCELLANEOUS ROUTE EVERY 3 (THREE) MONTHS., Disp: , Rfl: dilTIAZem CD (Cardizem CD) 120 MG 24 hr capsule, Take 120 mg by mouth Daily, Disp: , Rfl: EPINEPHrine (Epipen) 0.3 MG/0.3ML injection syringe, INJECT 0.3MG INTO THE APPROPRIATE MUSCLE NEEDED FOR ALLERGIC REACTION UP TO 1 DOSE, Disp: , Rfl: ergocalciferol (Vitamin D2) 1.25 MG (30907 UT) capsule, Take 1 capsule by mouth 1 (one) time per week., Disp: , Rfl: furosemide (Lasix) 20 MG tablet, Take 20 mg by mouth in the morning., Disp: , Rfl: lidocaine (Lidoderm) 5 % patch, PLACE 1 PATCH ON THE SKIN DAILY. REMOVE & DISCARD PATCH WITHIN 12 HOURS OR DIRECTED BY MD, Disp: , Rfl: loperamide (Imodium) 2 MG capsule, TAKE 2 [...] mouth in the evening., Disp: , Rfl: nystatin (Mycostatin) 397004 UNIT/ML suspension, TAKE 5ML BY MOUTH FOUR TIMES A DAY (MORNING, NOON, EVENING, BEDTIME) FOR 5 DAYS., Disp: , Rfl: omeprazole (PriLOSEC) [address] capsule, Take 1 capsule every day by oral route., Disp: , Rfl: ondansetron (Zofran) 4 MG tablet, TAKE 1 TABLET BY MOUTH EVERY 12 HOURS FOR 10 DAYS NEEDED FOR NAUSEA AND VOMITING, Disp: , Rfl: primidone (Mysoline) 50 MG tablet, Take 0.5 tablets (25 mg) by mouth at bedtime, Disp: 15 tablet, Rfl: 2 solifenacin (VESIcare) 10 MG tablet, Take 10 mg by mouth Daily, Disp: , Rfl: Thiamine Mononitrate 100 MG tablet, TAKE 1 TABLET BY MOUTH IN THE MORNING AND IN THE EVENING, Disp: , Rfl: Ventolin HFA 108 (90 Base) MCG/ACT inhaler, Inhale 1 puff in the morning and 1 puff in the evening and 1 puff before bedtime., Disp: , Rfl: Current Facility-Administered Medications: lidocaine (Xylocaine) 5 % ointment, , Topical, Once, Nikki Vergara NP ROS: General: denies fever, chills, fatigue, malaise GI: denies abdominal pain or ulcerations with anti-inflammatory medication OBJECTIVE LE EXAM: Derm: Sutures intact to right foot with negative erythema, negative drainage, minimal edema with negative clinical signs of infection. Right 2nd toe permanent nail avulsion has dry wound bed notable Edema noted to lateral aspect to right ankle Vascular: Palpable pedal pulses to right foot Neuro: Gross sensation intact to right foot. Musculoskeletal: Negative pain on palpation to right calf. positive pain on palpation to right ATF ligament negative palpation to right CFL ligament with negative anterior drawer and negative palpation of right 5th metatarsal base Ortho: Ankle range of motion less than 10 degrees of dorsiflexion at right ankle joint. Rectus right 2nd digit ASSESSMENT 15 days s/p right 2nd interspace neurectomy with right 2nd toe flexor tenotomy and right total permanent nail avulsion of the 2nd digit 1. Mild ankle sprain, right, initial encounter 2. Paronychia, toe, right PLAN Sutures were removed today to the foot and patient in now able to get foot wet. Prescription today for pain medication Patient to wear cam walker with NSAID and ice as needed p.r.n. Martin Arango DPM documented in this encounter [facility] 01-05-2025 Telephone encounter Note RICHIE Ramirez 01/08/25 w/ Jose Hammond PT. [facility] 01-05-2025 Miscellaneous Notes PT James 01/08/25 w/ Jose Hammond PT. She called noting she had a nerve block procedure today done on her foot. She said her mobility is very limited right now and would like to hold off till she is able to walk and move more freely w/o assistance. Tried to contact to schedule PT James for R shoulder; 30 visits / no copay. But had to lm requesting a call back to do so. documented in this encounter [facility] 01-02-2025 Telephone encounter Note Pt did not receive yesterday rx, phone call from pateint and will refill [facility] 01-02-2025 Miscellaneous Notes Pt did not receive yesterday rx, phone call from pateint and will refill documented in this encounter [facility] 01-01-2025 Telephone encounter Note Send prescription of Percocet 10 to [facility] 01-01-2025 Miscellaneous Notes Send prescription of Percocet 10 to [facility] documented in this encounter [facility] 12-30-2024 Telephone encounter Note She called noting she had a nerve block procedure today done on her foot. She said her mobility is very limited right now and would like to hold off till she is able to walk and move more freely w/o assistance. [facility] 12-29-2024 Telephone encounter Note Tried to contact to schedule PT Eval for R shoulder; 30 visits / no copay. But had to lm requesting a call back to do so. [facility] 12-17-2024 History of Present illness Narrative Patient: Rock Herrera : 1970 PCP: Robert Giron MD SUBJECTIVE Patient presents today with complaints of pain to the distal aspect of the right 2nd toe. She has painful hyperkeratotic lesion to the area had previous right 2nd digit surgery in the past Patient states toe does hit to the end of the shoe and has painful with ambulation up to a 5/10 on 10 pain scale. Discussion of possible distal toe amputation in the past. Patient presents today with a follow up of right 2nd interdigital space possible stump neuroma with steroid injection with negative improvement. Patient rates pain a 8/10. She had previous neurectomy in the past and denies any treatment besides orthotics Pt is dm2 Patient also has complaints of return of the right 2nd digit toenail and caused some pain with ambulation particularly in shoe gear and denies any drainage Pt scheduled for a right 2nd interspace neuroma excision with right 2nd digit flexor tenotomy and right 2nd toe TPN avulsion Allergies: Allergies Allergen Reactions Codeine Hives and [...] Behavior, Mental Status Change, other, Vomiting hallucinate [place] Saline Nasal Gel [Aloe-Sodium Chloride] Facial numbness/tongue [...] History: Past Medical History: Diagnosis Date Asthma ([facility]) Bipolar disorder ([facility]) Bunion COPD (chronic obstructive pulmonary disease) ([facility]) Depression ([facility]) Diabetes ([facility]) Difficulty walking Fallen arches Fibromyalgia Hammer toe Kidney stones Migraine ([facility]) Mitral valve prolapse Downey's neuroma Onychomycosis [...] time., Disp: , Rfl: Continuous Blood Gluc Inside Wirer (Dexcom G6 backhaul driver) device, 1 UNIT YEARLY, Disp: , Rfl: Continuous Blood Gluc Sensor (Dexcom G6 Sensor) [facility] [place] USE 1 UNIT DIRECTED AND CHANGE EVERY 10 DAYS, Disp: , Rfl: ergocalciferol (Vitamin D2) 1.25 MG (81298 UT) capsule, Take 1 capsule by mouth [...] oral route., Disp: , Rfl: nystatin (Mycostatin) 142496 UNIT/ML suspension, TAKE 5ML FOUR TIMES A [...] rhythm , chest pain or shortness of breath. Positive history of tachycardia Musculoskeletal: Positive history of generalized osteoarthritis with history of spinal stenosis OBJECTIVE LE EXAM: Derm: Diminished hair growth bilateral Distal right 2nd digit has large hyperkeratotic lesion with negative drainage or erythema Nummular lesion measuring at the right sub 2nd metatarsal measuring 0.1 cm x 0.1 cm. Slight erythema to distal aspect of right 2nd toenail with negative drainage Vascular: Palpable pedal pulses to bilateral feet Neuro: 5.07 [place] Gina monofilament test positive to digits and forefoot bilaterally 125Hz tuning fork positive to 1st MPJ bilaterally Ortho: Ankle range of motion less than 10 degrees of dorsiflexion at right ankle joint. Positive pain on palpation of right distal phalanx of 2nd digit Notable hypermobility of the DIPJ region of the right 2nd digit Notable slight flexion deformity of the right 2nd digit PIPJ region with extremely elongated great toe that is proximally 2 cm distally in length from the distal tip of the right hallux and right 3rd toe positive pain on palpation to right 2nd intermetatarsal space with negative Lee sign ASSESSMENT 1. Downey neuroma, right 2. Acquired deformity of right toe 3. Paronychia, toe, right 4. Diabetes 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 polyneuropathy, with long-term current use of insulin ([facility]) PLAN Patient given prescription for pain medication to be taken postoperatively. Decision for surgery today and patient medically cleared from a podiatric standpoint for surgery and to proceed with surgery. Pt to have pre op H/P per PCP for medical clearance for surgery and will be reviewed along with labs prior to surgery. Pt scheduled for a right 2nd interspace neuroma excision with right 2nd digit flexor tenotomy and right 2nd toe TPN avulsion Discussed with the patient the nature of condition and operative vs nonoperative care. The surgical plans, risks, alternatives, benefits, post op complications and alf expectations were discussed including but not limited to: infection,bone infection,wound dehiscence hardware failure and irritation,wound dehiscence,delay union/mal union/non union of bone. RSDS,neuroma,duty limitations,DVT/PE, MN,nerve damage, scar, loss of sensation, swelling. Pt [...] podiatric standpoint with an ASA of a 2. Martin Arango DPM, FACFAS H&P up to date and current (date) Date: December 17, 2024 Martin Arango DPM documented in this encounter [facility] 12-15-2024 History of Present illness Narrative Subjective Patient ID: Rock Herrera is a 54 y.o. female. Rock presents for a controlled substance recheck for alprazolam use. She is taking 1mg TID with benefit. It allows her to do her ADLs and IADLs. She doesn't have any side effects. She is having pain in her left arm still. She was getting tramadol from the surgeon but won't give her anymore until he sees her again which isn't until January. She was getting the medication for post-op pain. She was given celebrex last but she doesn't know what happened to it. She didn't continue it. The following portions of the patient's history were reviewed and updated as appropriate: allergies, current medications, past family history, past medical history, past social history, past surgical history, problem list, and medication reconciliation was completed including current medication and post discharge medication. Review of Systems Objective Physical Exam Vitals reviewed. Constitutional: General: She is not in acute distress. HENT: Head: Normocephalic. Cardiovascular: Rate and Rhythm: Normal rate and regular rhythm. Pulses: Normal pulses. Heart sounds: Normal heart sounds. No murmur heard. Pulmonary: Effort: Pulmonary effort is normal. No respiratory distress. Breath sounds: Normal breath sounds. No wheezing, rhonchi or rales. Neurological: General: No focal deficit present. Mental Status: She is alert and oriented to person, place, and time. Psychiatric: Attention and Perception: Attention normal. Mood and Affect: Mood and affect normal. Speech: Speech normal. Behavior: Behavior normal. Behavior is cooperative. Thought Content: Thought content normal. Cognition and Memory: Cognition normal. Judgment: Judgment normal. Assessment/Plan Rock was seen today for controlled medication. Diagnoses and all orders for this visit: Anxiety She is using a high risk medication with benefit. She doesn't have any side effects. It is helping with ADLs and IADLs. No sign of abuse. Will continue it for now. The OARRS/MAPPS database was reviewed today and found to be appropriate. No indication of medication diversion, or non compliance. Controlled substance agreement signed. Diabetes mellitus without complication ([facility]) - Microalbumin - Albumin: Creatinine Urine Ratio; Future - Microalbumin - Albumin: Creatinine Urine Ratio Her last A1c was great at 6%. Check ACR Enthesopathy of elbow F/U with ortho. Will restart celebrex 200 mg BID. She should be on an NSAIDs for musculoskeletal pain. Other orders - celecoxib (CeleBREX) 200 mg capsule; Take 1 capsule (200 mg total) by mouth in the morning and 1 capsule (200 mg total) before bedtime. documented in this encounter [facility] 12-15-2024 History of Present illness Narrative [facility] [address] [place] [address] Patient: Rock Herrera Sex: female : 1970 Age: 54 y.o. PCP: Robert Giron DO 12/15/2024 Rock Herrera is here for a(n) post procedure follow up left genicular nerve block with no relief . Patient is here for increased neck, back ,and bilateral knee pain. Patient would like to focus on her neck pain today. Currently rates pain a 9/10.Pain is worse with any neck movements. Chief Complaint Patient presents with Back Pain Neck Pain Knee Pain HPI: PT Left Knee February-March 2024 no relief 06/05/24 Left genicular NB with no relief Knee Pain Incident onset: 4 years. The injury mechanism was a twisting injury. The pain is present in the left knee and right knee. Pain scale: right knee 7/10 left knee 9/10. The pain is moderate (to severe). The pain has been Worsening since onset. Associated symptoms include numbness (bilateral knees, RUE) and tingling (bilateral knees, RUE). She reports no foreign bodies present. The symptoms are aggravated by movement and weight bearing. She has tried ice, heat, immobilization, non-weight bearing, NSAIDs, rest and acetaminophen for the symptoms. The treatment provided no relief. Neck Pain This is a chronic problem. The current episode started more than 1 year ago. The problem occurs constantly. The problem has been gradually worsening. The pain is associated with nothing. The pain is present in the left side, midline and right side. The quality of the pain is described as aching, burning, cramping, shooting and stabbing. The pain is at a severity of 9/10 (can get worse). The pain is moderate (to severe). The symptoms are aggravated by twisting, position, bending and stress. The pain is Same all the time. Stiffness is present All day. Associated symptoms include leg pain (posterior BLE), numbness (bilateral knees, RUE) and tingling (bilateral knees, RUE). She has tried heat, ice, bed rest, acetaminophen, home exercises and muscle relaxants (PT 5 years ago no relief) for the symptoms. Back Pain This is a chronic problem. The current episode started more than 1 year ago. The problem occurs constantly. The problem has been gradually worsening since onset. The pain is present in the lumbar spine. The quality of the pain is described as burning and aching (sharp). Radiates to: bilateral posterior legs. The pain is at a severity of 8/10. The pain is moderate. The pain is The same all the time. The symptoms are aggravated by bending, position, standing and twisting. Stiffness is present All day. Associated symptoms include leg pain (posterior BLE), numbness (bilateral knees, RUE) and tingling (bilateral knees, RUE). Risk factors include poor posture, sedentary lifestyle and lack of exercise. She has tried analgesics, bed rest, heat, home exercises and ice for the symptoms. The effect of pain on patient's ADLS: Moderate Impairment. Past Medical History: Diagnosis Date Anxiety Anxiety Arthritis Asthma Bipolar disorder ([facility]) Carpal tunnel syndrome Chronic kidney disease stage 3 COPD (chronic obstructive pulmonary disease) ([facility]) Depression Diabetes mellitus ([facility]) Fibromyalgia GERD (gastroesophageal reflux disease) Heart abnormality 01/24/2020 leaky valve going for testing Hyperlipidemia Hypertension Joint pain Low back pain Mitral valve prolapse Myocardial infarction ([facility]) Neck pain Osteoarthritis Osteoporosis Sleep apnea no cpap Spinal stenosis Vertigo Visual impairment glasses Past Surgical History: Procedure Laterality Date APPENDECTOMY ARTHROSCOPY WITH LATERAL MENISCECTOMY KNEE Right 06/06/2022 Performed by Krut Chapman MD at [facility] BREAST FIBROADENOMA SURGERY CARPAL TUNNEL RELEASE Left 08/03/2024 CATARACT EXTRACTION Bilateral CHONDROPLASTY, SYNOVECTOMY Right 06/06/2022 Performed by Kurt Chapman MD at [facility] COLONOSCOPY 2020 in CORRECTION HAMMER TOE Right EPIDURAL BLOCK INJECTION HYSTERECTOMY one ovary remains INJECTION BLOCK NERVE KNEE Left Genicular Left 06/05/2024 Performed by Avi Maharaj MD at [facility] MEDIAL BRANCH NERVE BLOCK: bilat L45 51 Bilateral 09/25/2019 Performed by Avi Maharaj MD at [facility] INJECTION SI JOINT Bilateral SI Joint Bilateral 03/25/2020 Performed by Avi Mahraaj MD at [facility] LAPAROSCOPIC CHOLECYSTECTOMY N/A 03/15/2017 Performed by Karlos Quinones DO at [facility] NEUROMA SURGERY PLANTAR FASCIA RELEASE Bilateral SINUS SURGERY x2 TARSAL TUNNEL RELEASE Bilateral TOE SURGERY toenails removed ULNAR TUNNEL RELEASE Left 08/03/2024 Allergies Allergen Reactions Codeine Hives Fish Derived Hives Iodinated Contrast Media Anaphylaxis Patient started to have SOB and felt faint Shellfish Containing Products Rash and Hives Atomoxetine Hcl GI Disturbance and Palpitations [...] Nitrofurantoin Monohyd/M-Cryst Other (See Comments) Paroxetine Hives Penicillin Other (See Comments) Penicillins GI Disturbance, Hives, Other (See Comments) and Vomiting Requip [Ropinirole] Shellfish Derived Sodium Chloride-Aloe Vera Facial numbness/tongue numbness Sulfamethoxazole Other (See Comments) Valproic Acid Other Reaction(s): Alopecia, Unknown Verapamil Hcl Adhesive Tape-Silicones Other (See Comments) and Rash rash Other Reaction(s): other Other Reaction(s): Other rash Amoxicillin-Pot Clavulanate GI Disturbance Fish Containing Products Rash Fluticasone Propion-Salmeterol Itching and Palpitations Ibuprofen GI Disturbance Methadone GI Disturbance Other reaction(s): Vomiting Pregabalin Other (See Comments) and Palpitations hallucinate Topiramate GI Disturbance and Other (See Comments) [...] Last attempt to quit: 04/15/2023 Years since quittin.6 Smokeless tobacco: Never Vaping Use Vaping status: Former Substances: Nicotine Devices: Disposable Substance and Sexual Activity Alcohol use: Not Currently Drug use: Yes Types: Medical Marijuana Sexual activity: Not Currently Partners: Male Other Topics Concern Not on file Social History Narrative Not on file Social Drivers of Health Financial Resource Strain: Low Risk (07/07/2023) Overall Financial Resource Strain (CARDIA) Difficulty of Paying Living Expenses: Not very hard Food Insecurity: No Food Insecurity (12/15/2024) Hunger Screening Food Insecurity - Worry: Never True Food Insecurity - Inability: Never True Transportation Needs: Unmet Transportation Needs (07/07/2023) PRAPARE - Transportation Lack of Transportation (Medical): Yes Lack of Transportation (Non-Medical): Yes Physical Activity: Insufficiently Active (01/24/2023) Exercise Vital Sign Days of Exercise per Week: 4 days Minutes of Exercise per Session: 10 min Stress: Stress Concern Present (01/24/2023) [employer] - Occupational Stress Questionnaire Feeling of Stress : To some extent Social Connections: Socially Isolated (01/24/2023) Social Connection and Isolation Panel [NHANES] Frequency of Communication with Friends and Family: More than three times a week Frequency of Social Gatherings with Friends and Family: More than three times a week Attends [employer] Services: Never Active Member of Clubs or Organizations: No Attends Club or Organization Meetings: Never Marital Status: Interpersonal Safety: Unknown (11/03/2024) Received from [facility] Humiliation, Afraid, Rape, and Kick questionnaire Fear of Current or Ex-Partner: No Emotionally Abused: Not on file Physically Abused: Not on file Sexually Abused: Not on file Housing Instability: Low Risk (07/07/2023) Housing Instability Housing Instability: No Review of Systems Constitutional: Negative. HENT: Negative. Negative for congestion. Migraine headaches Eyes: Negative. Respiratory: Negative. Cardiovascular: Positive for leg swelling. Gastrointestinal: Negative. Endocrine: Negative. Genitourinary: Negative. Musculoskeletal: Positive for back pain, gait problem, myalgias and neck pain. Skin: Negative. Allergic/Immunologic: Negative. Neurological: Positive for tingling (bilateral knees, RUE) and numbness (bilateral knees, RUE). Hematological: Negative. Psychiatric/Behavioral: Negative for hallucinations and suicidal ideas. Vital Signs: BP 117/70 (BP Site: Right Arm, BP Postition: Sitting) Pulse 51 Resp 20 Wt 69.4 kg (153 lb) BMI 26.25 kg/m Physical Exam: GENERAL - Healthy patient [...] obvious deficits in memory, reasoning, or intellect. Cervical: SKIN - No rashes or bruising in the area of the patient s pain. LYMPH NODES - demonstrate no obvious enlargement. EXTREMITIES - Upper extremities are warm, with minimal edema and palpable pulses. Tenderness to palpation noted in the cervical spine and paraspinal musculature. Pain is elicited with flexion, extension, and lateral rotation of the cervical spine. Range of motion is diminished with these motions due to pain. Facet palpation is noted to be painful and concordant with the patient s normal pain complaints. STRENGTH - noted to be 5 out of 5 all muscle groups bilateral upper extremities including muscles involving shoulder flexion and abduction, elbow flexion and extension, as well as wrist flexion and extension and intrinsic muscles of the hand. No notable atrophy, fasciculations or spasm. SENSORY - No notable sensory deficits in the bilateral upper extremities to touch or pinprick in all dermatomal distributions. Spurlings sign is negative. Assessment/Treatment Plan: Rock was seen today for back pain, neck pain and knee pain. Diagnoses and all orders for this visit: Cervical spondylosis without myelopathy - X-ray spine cervical 4 or 5 views; Future - Ambulatory referral to Physical Therapy; Future Other orders - baclofen (LIORESAL) 10 mg tablet; Take 1 tablet (10 mg total) by mouth 3 (three) times a day. Baclofen 10 mg TID PRN With Regard to medication management, it is felt that the patient would benefit from the changes mentioned above. This should provide symptomatic pain relief as part of the comprehensive pain management strategy outlined. Risks, Benefits, Side effects, and possible interactions of these medications were reviewed and the medication agreement has been discussed, agreed upon, and signed. The patient understands compliance concerns and the requirement of pill counts and drug screens while taking medications prescribed by this clinic. Cervical spine xray Imaging/Diagnostic Testing - It is felt that additional diagnostic testing is necessary to further evaluate the patients current pain pathology. For this reason, we will order additional imaging/diagnostic testing noted above. It is hopeful that this study will identify a significant pain generator that will be amenable to therapy. It is felt that this modality is necessary due to the severity and chronicity of symptoms and physical exam findings combined with the lack of recent imaging/diagnostic testing of the area. Physical/Aquatic Therapy - It is felt that the patient will benefit from a course of physical therapy focusing on the above mentioned diagnosis. We will recommend that the physical therapist fully evaluate and treat at their discretion considering the modalities that are most useful for the condition being treated. This may include modalities of comfort including moist heat, ultrasound, and TENS therapy. It may also utilize manual therapy and myofascial release for the myofascial component of the patient s pain. It will likely advance to modalities aimed at stabilizing and strengthing the target area while improving range of motion as well. We are also requesting that the physical therapist send notes that will keep our clinic updated to the patient s progress. Follow up 4-6 weeks The medications I have prescribed have been reviewed for medication interactions/contraindications and/or for upcoming procedures: continue current medication regimen without any changes. DISCUSSION: Treatment options discussed with patient and all questions answered to patient's satisfaction. Discussed the rules and regulations surrounding prescription of opioids and compliance at length. Failure to follow the rules and regulation will result in tapering and discontinuation of medications if applicable. Prescribed medication that requires intensive monitoring for toxicity We do not currently prescribe any controlled substance from this practice. Treatment plans discussed but not opted for at this time: Cervical spine MRI. Patient would like to proceed with the current outlined treatment plan before moving forward with any other options. The spine model was demonstrated and MRI was reviewed and used to explain the condition. Chronic conditions not treated during this visit [...] the patient prior to any procedure. Comorbidity- Anxiety The patient describes a significant issue with anxiety. Although treatment is helpful with this regard, the patient is likely need special accommodation due to this condition. For this reason, necessary procedures will likely need to be performed under sedation to decrease procedural anxiety. Comorbidity- Depression The patient has an ongoing issue with depression and currently feels these symptoms are under control and further feels that appropriate pain management would also help these symptoms. The patient is optimistic about the treatment plan we have laid out. We will continue to monitor these symptoms and remain cogniscent that they may affect the patients perceived improvement from the treatment and willingness to pursue further treatment. At this time the patient appears to be mentally and emotionally stable to undergo procedural and medical therapy. If any warning signs become present, I may refer the patient to a mental health professional for further evaluation. OARRS: Reviewed. Scribe Statement: IDelmy CNA, scribed for and in the presence of SHARYN REAGAN who performed the above service. Delmy Limon CNA 12/15/24 1131 Delmy Limon CNA 12/15/24 1206 SHARYN Reagan 12/15/24 [id number] documented in this encounter [facility] [employer] 12-03-2024 History of Present illness Narrative Patient: Rock Herrera : 1970 PCP: Robert Giron MD SUBJECTIVE Patient presents today with complaints of pain to the distal aspect of the right 2nd toe. She has painful hyperkeratotic lesion to the area had previous right 2nd digit surgery in the past Patient states toe does hit to the end of the shoe and has painful with ambulation up to a 5/10 on 10 pain scale. Discussion of possible distal toe amputation in the past. Patient presents today with a follow up of right 2nd interdigital space possible stump neuroma with steroid injection with negative improvement. Patient rates pain a 8/10. She had previous neurectomy in the past and denies any treatment besides orthotics Pt is dm2 Patient also has complaints of return of the right 2nd digit toenail and caused some pain with ambulation particularly in shoe gear and denies any drainage Allergies: Allergies Allergen Reactions Codeine Hives and [...] Behavior, Mental Status Change, other, Vomiting hallucinate [place] Saline Nasal Gel [Aloe-Sodium Chloride] Facial numbness/tongue [...] History: Past Medical History: Diagnosis Date Asthma ([facility]) Bipolar disorder ([facility]) Bunion COPD (chronic obstructive pulmonary disease) ([facility]) Depression (CMS/HCC) Diabetes (CMS/HCC) Difficulty walking Fallen [...] time., Disp: , Rfl: Continuous Blood Gluc Inside Wirer (Dexcom G6 backhaul driver) device, 1 UNIT YEARLY, Disp: , Rfl: Continuous Blood Gluc Sensor ([place]com G[place] Sensor[place] [facility] [place] 1 UNIT DIRECTED AND CHANGE EVERY 10 DAYS, Disp: , Rfl: ergocalciferol (Vitamin D2) 1.25 MG (32940 UT) capsule, Take 1 capsule by mouth [...] oral route., Disp: , Rfl: nystatin (Mycostatin) [id number] UNIT/ML suspension, TAKE 5ML FOUR TIMES A [...] with anti-inflammatory medication OBJECTIVE LE EXAM: Derm: Diminished hair growth bilateral Distal right 2nd digit has large hyperkeratotic lesion with negative drainage or erythema Nummular lesion measuring at the right sub 2nd metatarsal measuring 0.1 cm x 0.1 cm. Slight erythema to distal aspect of right 2nd toenail with negative drainage Vascular: Palpable pedal pulses to bilateral feet Neuro: 5.07 [place] Gina monofilament test positive to digits and forefoot bilaterally 125Hz tuning fork positive to 1st MPJ bilaterally Ortho: Ankle range of motion less than 10 degrees of dorsiflexion at right ankle joint. Positive pain on palpation of right distal phalanx of 2nd digit Notable hypermobility of the DIPJ region of the right 2nd digit Notable slight flexion deformity of the right 2nd digit PIPJ region with extremely elongated great toe that is proximally 2 cm distally in length from the distal tip of the right hallux and right 3rd toe positive pain on palpation to right 2nd intermetatarsal space with negative Lee sign ASSESSMENT 1. Downey neuroma, right 2. Diabetes 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 polyneuropathy, with long-term current use of insulin ([facility]) 3. Acquired deformity of right toe PLAN Discussed conservative and surgical treatment options for patient today including postoperative time frame and surgical procedure in detail. Patient may continue with conservative treatments including [id number] anti-inflammatories and other treatments suggested today. Patient may want to be scheduled for surgical intervention in the near future. Patient have a right 2nd interspace neurectomy with stump neuroma excision with right 2nd toe flexor tenotomy and total permanent nail avulsion to right 2nd digit nail Patient to continue with oral anti - inflammatories as needed for pain and recommended OTC medications such as tylenol or Ibuprofen Martin Arango DPM documented in this encounter [facility] 11-19-2024 History of Present illness Narrative Patient: Rock Herrera : 1970 PCP: Robert Giron MD SUBJECTIVE Patient presents today with complaints of pain to the distal aspect of the right 2nd toe. She has painful hyperkeratotic lesion to the area had previous right 2nd digit surgery in the past Patient states toe does hit to the end of the shoe and has painful with ambulation up to a 2/10 on 10 pain scale. Discussion of possible distal toe amputation in the past. Patient presents today with complaints of pain to the right 2nd interdigital space and states pain on a scale of 5-10 with burning and tingling. She had previous neurectomy in the past and denies any treatment besides orthotics Pt is dm2 Allergies: Allergies Allergen Reactions Codeine Hives and [...] Behavior, Mental Status Change, other, Vomiting hallucinate [place] Saline Nasal Gel [Aloe-Sodium Chloride] Facial numbness/tongue [...] History: Past Medical History: Diagnosis Date Asthma ([facility]) Bipolar disorder ([facility]) Bunion COPD (chronic obstructive pulmonary disease) ([facility]) Depression ([facility]) Diabetes ([facility]) Difficulty walking Fallen arches Fibromyalgia Hammer toe Kidney stones Migraine ([facility]) Mitral valve prolapse Downey's neuroma Onychomycosis [...] time., Disp: , Rfl: Continuous Blood Gluc Inside Wirer (Dexcom G6 backhaul driver) device, 1 UNIT YEARLY, Disp: , Rfl: Continuous Blood Gluc Sensor (Dexcom G6 Sensor[place] [facility] [place] 1 UNIT DIRECTED AND CHANGE EVERY 10 DAYS, Disp: , Rfl: ergocalciferol (Vitamin D2) 1.25 MG (86230 UT) capsule, Take 1 capsule by mouth [...] oral route., Disp: , Rfl: nystatin (Mycostatin) [id number] UNIT/ML suspension, TAKE 5ML FOUR TIMES A [...] with anti-inflammatory medication OBJECTIVE LE EXAM: Derm: Diminished hair growth bilateral Distal right 2nd digit has large hyperkeratotic lesion with negative drainage or erythema Nummular lesion measuring at the right sub 2nd metatarsal measuring 0.1 cm x 0.1 cm. Vascular: Palpable pedal pulses to bilateral feet Neuro: 5.07 [place] Gina monofilament test positive to digits and forefoot bilaterally 125Hz tuning fork positive to 1st MPJ bilaterally Ortho: Ankle range of motion less than 10 degrees of dorsiflexion at right ankle joint. Positive pain on palpation of right distal phalanx of 2nd digit Notable hypermobility of the DIPJ region of the right 2nd digit Notable slight flexion deformity of the right 2nd digit PIPJ region with extremely elongated great toe that is proximally 2 cm distally in length from the distal tip of the right hallux and right 3rd toe Positive pain on palpation to right 2nd intermetatarsal space with negative Lee sign DIAGNOSTIC ULTRASOUND REPORT: Verbal order for ultrasound today The 2ndwebspace of the right foot were scanned today using and 12 MHz linear probe in the transverse and sagital planes, concentrating on the interspace. Images were obtained. FINDINGS: The intermetatarsal space was identified using ultrasound. A transverse view and its examination at the metatarsal head level demonstrates a discrete and well defined round hypo-echogenic mass in the web space. IMPRESSION: US findings indicated a right foot neuroma and most likely stump neuroma ASSESSMENT 1. Acquired deformity of right toe 2. Diabetes 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 polyneuropathy, with long-term current use of insulin ([facility]) 3. Downey neuroma, right PLAN Discussed conservative and surgical treatment options for patient today including postoperative time frame and surgical procedure in detail. Patient may continue with conservative treatments including ilnx-xzi-rdukefz anti-inflammatories and other treatments suggested today. Patient may want to be scheduled for surgical intervention in the near future. Discussed possible surgical excision of neuroma and possible removal of lesion in future and patient does not want surgery at this time for right 2nd toe amputation partial Patient to continue with oral anti - inflammatories as needed for pain and recommended OTC medications such as tylenol or Ibuprofen Continue with orthotics and mainly new orthotics in the future Reviewed ultrasound today with patient Pt was given an injection of 1 ml Kenalog Integra 2 ml of xylocaine 2 percent plaininjection into the : webspace of the right foot. Informed pt of risks and benefits of injection including non resolution of symptoms, irreversible numbness, infection and pain. Pt consented. Injection was given under US guidance to precisely infiltrate around the nerve of interest with images obtained. This is the pts 1st injection of steroid solution Martin Arango DPM documented in this encounter [facility] 11-11-2024 History of Present illness Narrative Images from the original note were not included. CHIEF COMPLAINT REASON FOR VISIT : HPI: Rock Herrera is a 54 y.o. female who presents for a follow up. She states headaches are down to 2 a month. She states after she takes the ajovy within about 4 days she does end up with a migraine. She states that [employer] usually does work for her. [employer] goes to [employer]. She states she is not sleeping that well. MIGARAINES -She states her headaches are better. -2 days after Ajovy she gets a migraine -He has had 6 migraines since lat visit -She states she is still getting a couple headaches 1-2 times a week. -Nurtec works well -prior to Ajovy she has migraine 4 times a week -BARBOZA are generalized -pounding and pressure -light/sound/nausea/emesis -blurred vision- FATIGUE/CELINE -she falls asleep frequently TO the day -she does not sleep well -she never feels rested -she does snore, she wakes up SOB at times -she has been told it looks like she is not breathing at night -if she sits down she falls asleep -She has CELINE which is untreated MEMORY -She states she has had more difficulty with short-term memory. -worsening -short term memory is poor -has to write everything down, forgets what she goes into a room for -No issues with ADLs -She denies issues with driving -She does take thiamine. -She states she does not sleep well. -She states she does get some nightmares. BACK PAIN persistent radiates down her legs interferes with sleep Follows with pain mgt in [place] CURRENT MEDICATIONS: ALLERGIES/DISCONTINUE MEDICATIONS Current Outpatient Medications [...] Continuous Glucose Sensor (FreeStyle L[place] 2 Sensor[place] [facility] [place] AND CHANGE EVERY 14 DAYS Continuous Glucose Transmitter (Dexcom G6 transmitter[place] [facility] [place] 1 UNIT BY MISCELLANEOUS ROUTE EVERY 3 (THREE) MONTHS. dilTIAZem CD (CARDIZEM CD) 120 mg, Daily EPINEPHrine (Epipen) 0.3 MG/0.3ML injection syringe INJECT 0.3MG INTO THE APPROPRIATE MUSCLE NEEDED FOR ALLERGIC REACTION UP TO 1 DOSE ergocalciferol (Vitamin D2) 1.25 MG (71849 UT) capsule 1 capsule, Weekly furosemide (LASIX) 20 mg, Daily glycopyrrolate (Robinul) 2 MG tablet TAKE 1 TABLET (2 MG) BY MOUTH AT BEDTIME lidocaine (Lidoderm) 5 % patch PLACE 1 PATCH ON THE SKIN DAILY. REMOVE & DISCARD PATCH WITHIN 12 HOURS OR DIRECTED BY lidocaine (Xylocaine) 5 % ointment APPLY TO THE AFFECTED AREA THREE TIMES DAILY NEEDED FOR PAIN loperamide (Imodium) 2 MG capsule TAKE 2 CAPSULES BY MOUTH AFTER 1ST LOOSE STOOL AND 1 CAPSULE AFTER EACH NEXT BOWEL MOVEMENT; DO NOT EXCEED 16MG (8 CAPSULES) IN 24 HOURS meclizine (ANTIVERT) 25 mg, 3 times daily PRN metFORMIN (GLUCOPHAGE) 500 mg, Daily with breakfast montelukast (SINGULAIR) 10 mg, Every evening nortriptyline (PAMELOR) 25 mg, 4 times daily nystatin (Mycostatin) [id number] UNIT/ML suspension TAKE 5ML BY MOUTH FOUR [...] Hives and Rash Other Reaction(s): Other, Unknown Fish Allergy Hives and Rash Iodinated Contrast Media Anaphylaxis Patient started to have SOB and felt faint Other Hives Other Reaction(s): other Atomoxetine Hcl Palpitations Other Reaction(s): GI Disturbance, Other: See Comments palpitations Bupropion Palpitations Other Reaction(s): GI Disturbance, other, Other: See Comments palpitations Doxycycline Palpitations Other Reaction(s): GI Disturbance, Other, Other: See Comments, Unknown palpitations Gabapentin Other Reaction(s): Unknown Oxcarbazepine GI intolerance, Hives and Palpitations palpitations Ropinirole Other Reaction(s): Altered mental status Other Reaction(s): Other Ziprasidone Hcl Hives and Palpitations palpitations Aloe Facial numbness/tongue numbness Amitriptyline Other Reaction(s): Abnormal Behavior, Mental Status Change, other, Vomiting hallucinate [place] Saline Nasal Gel [Aloe-Sodium Chloride] Facial numbness/tongue [...] Unknown, Vomiting, Vomiting, Vomiting Other Reaction(s): other Sulfamethoxazole Other Reaction(s): Other (See Comments), Unknown [...] Wound Dressing Adhesive Rash Other Reaction(s): other Other Reaction(s): Other rash Ziprasidone Palpitations Other Reaction(s): other, Unknown There are no discontinued medications. PAST MEDICAL HISTORY: SURGICAL/SOCIAL/FAMILY HISTORY DEPRESSION SCREEN: Past Medical History: Diagnosis Date Asthma ([facility]) Bipolar disorder ([facility]) Bunion COPD (chronic obstructive pulmonary disease) ([facility]) Depression ([facility]) Diabetes ([facility]/HCC) Fallen arches Fibromyalgia GERD (gastroesophageal reflux disease) Hammer toe Hypertension ([facility]) Kidney stones [place] (myocardial infarction) ([facility]) Migraine ([facility]) Mitral valve prolapse Downey's neuroma Onychomycosis Osteoarthritis Oxygen dependent Plantar fasciitis Sleep apnea SVT (supraventricular tachycardia) ([facility]) Tinea pedis Past Surgical History: Procedure Laterality Date APPENDECTOMY BREAST LUMPECTOMY Left 10/2015 benign BREAST LUMPECTOMY Left 02/2016 benign BREAST SURGERY 12/2008 bilateral subareolar ductal exition CARPAL TUNNEL RELEASE x2 COLONOSCOPY 2013 egd/colonoscopy FOOT SURGERY FOOT SURGERY Right GANGLION CYST EXCISION Right 02/2016 wrist HYSTERECTOMY 2005 LITHOTRIPSY OTHER SURGICAL HISTORY left tenex OTHER SURGICAL HISTORY rt pb surgery OTHER SURGICAL HISTORY rt 2,3,4 ID REVISE ULNAR NERVE AT WRIST ulnar nerve release x 2 SINUS SURGERY x2 TOE SURGERY 2016 TOE SURGERY Right 3rd toe TOE SURGERY Bilateral 04/09/2024 RT 2nd and 4th, LT 2nd, 3rd and 4th, by dr. arango TUBAL LIGATION Social History Tobacco Use Smoking status: Every Day Current packs/day: 0.50 Average packs/day: 0.5 packs/day for 39.2 years (19.6 ttl pk-yrs) Types: Cigarettes Start date: 08/19/1985 Passive exposure: Current Smokeless tobacco: Never Vaping Use Vaping status: Unknown Substance Use Topics Alcohol use: Not Currently Comment: caffeine intake: 1-2 cups per day Drug use: Not Currently Family History Problem Relation Name Age of Onset Diabetes Mother Alcohol abuse Father Depression: Not at risk (11/03/2024) Received from [facility] PHQ-2 Patient Health Questionnaire-2 Score: 0 REVIEW [...] findings, which shall supersede the foregoing. OBJECTIVE: 11/11/2024 1:26 PM 09/16/2024 1:06 PM 08/10/2024 1:09 PM Vitals BMI 27.02 kg/m2 27.48 kg/m2 28.15 kg/m2 BSA (m2) 1.8 m2 1.81 m2 1.83 m2 Systolic 110 Diastolic 60 Height (in) 5' 4 5' 4 Weight (lb) 157.4 160.1 164 Visit Report Report Report Report EXAM: [...] equal, round, and reactive to light and accommodation, both directly and consensually. Visual garcia were full [...] in all four extremities, including at least art display maker, finger abductors, biceps, triceps, deltoid, toe flexors [...] and spasticity are not evident. Arm swing is normal. Toe, heel, and tandem walking are performed without difficulty. Musculoskeletal: Trigger-point tenderness was absent. There is no spasm of the trapezii or paraspinals. PROCEDURE: NONE ASSESSMENT AND PLAN: Diagnoses and all orders for this visit: Intractable chronic migraine without aura and without status migrainosus (CMS/HCC) - fremanezumab (Ajovy) 225 MG/1.5ML auto-injector; Inject 1 pen (225 mg) under the skin every 30 (thirty) days - Rimegepant Sulfate (Nurtec) 75 MG tablet dispersible; Take 75 mg by mouth 1 (one) time if needed (at onset of migraine.) - primidone (Mysoline) 50 MG tablet; Take 0.5 tablets (25 mg) by mouth at bedtime documented in this encounter [facility] 11-09-2024 Miscellaneous Notes Patient is having a procedure done on her foot is it still ok to have this done. Probably. What is she having done? It sounded like a bone spur. Yes. I did not see any preop clearance form to sign LM via VM documented in this encounter [facility] 11-09-2024 Telephone encounter Note Patient is having a procedure done on her foot is it still ok to have this done. [facility] 11-09-2024 Telephone encounter Note Probably. What is she having done? [facility] 11-09-2024 Telephone encounter Note It sounded like a bone spur. [facility] 11-09-2024 Telephone encounter Note Yes. I did not see any preop clearance form to sign [facility] 11-09-2024 Telephone encounter Note [facility] 11-03-2024 Note Attestation signed by Lan Rubi MD at 11/04/2024 11:54 AM GC: I saw this patient. I personally performed the critical/cunningham portions that determines the level of service. I was directly involved in the management and treatment plan of the patient. I reviewed resident's note and agree with the documentation Orthopedic Surgery Subjective 08/03/2024 - Revision To Submuscular Transposition, Nerve, Ulnar - Left and Revision Release, Carpal Tunnel - Left 11/03/24 Rock Herrera is a 54 y.o. female s/p 08/03/2024 Revision To Submuscular Transposition, Nerve, Ulnar - Left and Revision Release, Carpal Tunnel - Left. Patient states she continues to self pain. Sometimes she wakes up with shooting pain or muscle pain is at the base of her hand. The elbow pain she said is improved substantially. She does occasionally get some pain in her proximal upper arm. She says her pinky is still sleepy but sometimes it is supersensitive. Regarding her other fingers that sensation has improved. She is still taking. He show 3. We told her we cannot refill these as that has been 3 months since her surgery. We counseled her on the importance of weaning off of narcotics. We told her the importance of soft tissue massage as well as stretching. Denies fevers, chills and other constitutional symptoms. Denies drainage from incision. History Past Surgical History: Procedure Laterality Date [...] Hypertension Myocardial infarction (CMS/HCC) Sleep apnea Objective Exam: - Incisions well-healed. No drainage or erythema. Patient is dry house tender to palpation at the base of her right hand. She is nontender over cubital tunnel incision. She is dry house tender over proximal upper arm. - Reasonable post-surgical ROM, swelling, and tenderness - Sensation grossly intact distally - Brisk capillary refill Imaging None taken Assessment/Plan Rock Herrera is a 54 y.o. female s/p Revision To Submuscular Transposition, Nerve, Ulnar - Left and Revision Release, Carpal Tunnel - Left (08/03/2024). With persistent pain gradually improving. Plan: -Wean from Percocet we gave her a prescription for tramadol today we encouraged her to wean away from narcotic medications. Encouraged soft tissue massage as well as stretching. Will see her back in 3 months for clinical check. Mamie Kiser MD Orthopaedic Surgery, PGY-4 11/03/24 2:02 PM [facility] 10-26-2024 History of Present illness Narrative Subjective Patient ID: Rock Herrera is a 54 y.o. female. Rock presents today for an anxiety recheck but also wants to discuss a test that was done at home by her insurance company. She had ABIs done on her and her left lower leg showed severe abnormality. She does have chronic leg pain but does note that it is worse in the left leg. She sometimes has to let the leg hang out of bed because it wakes her up at night. She denies discoloration to her feet. She did hit her right hip on the table lat night and it hurts really bad. There was no bruising. She was able to ambulate right away. She is using alprazolam 1 mg 3 times a day with benefit. She does not have any side effects. It is helping her sleep at night. She feels it is beneficial for her. Helps calm her anxiety down where she can perform ADLs and IADLs. She has chronic rash under both breasts consistent with intertrigo. She uses nystatin cream and powder with benefit. It goes away but then always returns. She does not wear a bra because it aggravates her fibromyalgia. The following portions of the patient's history were reviewed and updated as appropriate: allergies, current medications, past family history, past medical history, past social history, past surgical history, problem list, and medication reconciliation was completed including current medication and post discharge medication. Review of Systems Constitutional: Negative. Respiratory: Negative. Cardiovascular: Negative. Musculoskeletal: Positive for arthralgias, back pain and myalgias. Skin: Positive for rash (Under breast but gone right now). Psychiatric/Behavioral: The patient is nervous/anxious. Objective Physical Exam Vitals reviewed. Constitutional: General: She is not in acute distress. Appearance: Normal appearance. She is overweight. She is not ill-appearing. HENT: Head: Normocephalic. Cardiovascular: Rate and Rhythm: Normal rate and regular rhythm. Heart sounds: Normal heart sounds. Pulmonary: Effort: Pulmonary effort is normal. No respiratory distress. Breath sounds: Normal breath sounds. No wheezing, rhonchi or rales. Musculoskeletal: Cervical back: Neck supple. Right hip: Bony tenderness (Right iliac crest) present. Right lower leg: No edema. Left lower leg: No edema. Neurological: General: No focal deficit present. Mental Status: She is alert and oriented to person, place, and time. Assessment/Plan Rock was seen today for discuss test results. right hip pain. Diagnoses and all orders for this visit: Peripheral arterial disease ([facility]) - Vas art doppler lwr bilat mult lev/PVR; Future Check ABIs at the hospital and will likely need a vascular consult if they are abnormal like they were at the home test. Anxiety - Drug Screen, Urine; Future She is using high risk medication with benefit. It is improving her quality of life and allowing her to do ADLs. It is improving her sleep. The OARRS/MAPPS database was reviewed today and found to be appropriate. No indication of medication diversion, or non compliance. Medication monitoring encounter - Drug Screen, Urine; Future Check urine for drugs of abuse and presence of medication Contusion of right hip, initial encounter There was no bruise or significant injury. Should improve on its own. Candidal intertrigo Discussed issue with recurrent rash under breasts. She does not wear a bra because it hurts her back. I encouraged her to find a bra that would keep the breast tissue from lying on the skin that will prevent the rash from recurring. Overweight She has had a gradual weight loss. She was congratulated and encouraged to continue. It is benefitting her overall health. documented in this encounter [facility] 10-22-2024 Miscellaneous Notes Patient called to get her lidocaine ointment refilled and sent to [facility] She was on a Lidoderm patch not ointment. They are not going to cover it for a patch so she should get Salonpas 4% lidocaine patches [id number]. documented in this encounter [facility] 10-22-2024 Telephone encounter Note Patient called to get her lidocaine ointment refilled and sent to [facility] 10-22-2024 Telephone encounter Note She was on a Lidoderm patch not ointment. They are not going to cover it for a patch so she should get Salonpas 4% lidocaine patches [id number]. [facility] 10-12-2024 Evaluation note Diagnosis Onset Date Resolution COPD (chronic obstructive pulmonary disease) acute October 12, 025 2:50pm Diastolic dysfunction acute Feb ruary 2024 2:50pm Nicotine dependence, cigarettes, uncomplicated acute October 12 025 2:50pm [facility] Work Phone: [phone]) 239-814402-11-2025 Telephone encounter Note* Telephone Encounter - Odette Jacobs - 09/29/2024 11:01 AM EST Contacted to check status and check re: PO w/ doctor. She said she was advised to quit smoking for 2 weeks; but was not given any recommendation on more PT. She said the doctor noted strength in L leg has increased; she mentioned her R leg giving problems now. She then indicated having a hand / armreferral and will try to have sent over [...] PT / or if OT is needed. [id number] Miscellaneous Notes* Telephone Encounter - Odette Jacobs - 09/29/2024 11:01 AM EST Contacted to check status and check re: PO w/ doctor. She said she was advised to quit smoking for 2 weeks; but was not given any recommendation on more PT. She said the doctor noted strength in L leg has increased; she mentioned her R leg giving problems now. She then indicated having a hand / armreferral and will try to have sent over or will provide to be authed. I requested if scheduling on is needed; but she'd like to hold-off. I indicated her last PT was 2 and being contacted prior 30 days out is needed to cont off PT referral for L knee / leg. If pain is primarily in the R leg/ knee, a new referral will be needed as well to treat. She said she acknowledges and will contact re: more PT / or new PT / or if OT is needed. * Telephone Encounter - Odette Jacobs - 09/24/2024 9:56 AM EST She had called noting her migraine from yesterday has only gotten worse today; she cx. I noted today was her last scheduled; she said she has a fu on 09/28 w/ doctor. I requested a call back post fu and she said she will. If no hearback I will contact later 09/29. documented in this encounterMercy McCune-Brooks [id number] NoteOrthopedic Surgery Subjective Chief complaint: Chief Complaint Patient presents with Left Knee - Pain 09/28/24 54-year-old female presents for follow-up visit for left knee pain. At last visit, along discussion was had with the patient regarding treatment options moving forward. At that time, she had elected to proceed with left total knee arthroplasty. She presents today for repeat evaluation and would like to move forward with left knee replacement surgery. In the interim, she states that her left knee pain has gotten progressively worse and is severely limiting her activities of daily living. She ambulates without use of assistive devices. Does endorse history of prior left knee arthroscopy. Otherwise, no prior surgeries or procedures to the left knee. Patient continues to smoke approximately 0.5-1 pack/day cigarettes. 08/17/24 Rock Herrera is a 54 y.o.female presenting for evaluation of left knee pain, [...] post right knee arthroscopic meniscectomy done on 06 June 2022 and believes that recent MRI scan showed tear [...] institution which shows the patient has severe maltracking lateral degenerative's of the left knee joint [...] visit. Assessment/Plan Rock Herrera is a 54 y.o.female with LEFT tricompartmental osteoarthritis. Patient was explained that she does have [...] infection, neurovascular injury, residual pain stiffness, significant with (more content not included)... [facility]02-06-2025 Telephone encounter Note* Telephone Encounter - Odette Jacobs - 09/24/2024 9:56 AM EST She had called noting her migraine from yesterday has only gotten worse today; she cx. I noted today was her last scheduled; she said she has a fu on 09/28 w/ doctor. I requested a call back post fu and she said she will. If no hearback I will contact later 09/29. [facility] [id number] Note Attestation signed by Lan Rubi MD [...] hand. 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 Pain today rates 7/10 inleft knee. Will return to Dr for left [...] minutes) Strength, Endurance, Flexibility, ROM, HEP, Neural Mobilization,Power, and Core Stability as needed. Nustep x10 [...] to be instructed in home exercise program. Prison Goals: To be met in 10 weeks Goal 1: Pt to report independence and compliance with home program. Goal 2: Pt to achieve 4+/5 strength left knee flexion and extension to assist with functional mobility and ADL's. Goal 3: Pt to score no less than 40/80 on LEFS indicating improved QOL. Goal 4: Pt to complete Five Time Sit to machine cell tuber less than 12.0 seconds with arms across [...] Please sign below. Date: documented in this [facility]01-28-2025 History of Present illness Narrative* Robert Giron, - 09/15/2024 3:30 PM EST Subjective Patient ID: Rock Herrera is a 54 y.o. female. Rock presents today for a controlled substance visit. She is using alprazolam 1mg 1-3 times a daywith benefit. She uses it for anxiety. It controls her anxiety so she can do ADLs and IADLs. She isnot having any side effects. She would also like labs checked like A1c and lipids. She is going to have a hip replacement in [place] and will need a pre-op clearance The [...] or non compliance. Diabetes mellitus without complication ([facility]) - Hemoglobin A1c; Future Check A1c Essential hypertension - Comprehensive metabolic panel; Future BP at goal-even low. Check CMP Mixed hyperlipidemia - Lipid panel; Future Check lipids Medication management - Drug Screen, Urine; Future Check urine for presence of medication and DOA. Chronic obstructive pulmonary disease, unspecified COPD type ([facility]) Stable. Continue current regimen Current smoker Encouraged to stop smoking. <3 minutes spent discussing [facility] Telephone encounter Note* Telephone Encounter - Odette Jacobs - 09/15/2024 10:48 AM EST She called noting diarrhea and not feeling well; cx PT today. I reminded and she confirmed 09/17/24. [facility] [id number] Miscellaneous Notes* Telephone Encounter - Odette Jacobs - 09/15/2024 10:48 AM EST She called noting diarrhea and not feeling well; cx PT today. I reminded and she confirmed 09/17/24. documented in this encounterMercy McCune-Brooks [id number] Rock Herrera 1970 F Date Provider Department Center 09/10/2024 Judy-LAN RUBI [facility] No family history on fileHol[facility] System01-17-2025 Telephone encounter Note* Telephone Encounter - Odette Jacobs - 09/04/2024 9:39 AM EST Called back and asked if she would be able to do the exercises involved w/ her treatment; and she said whenever she walks she feels a significant burn. Per Carlotta, said if unable to cx today and cont on next week. She said she'll be here next week. [facility] [id number] Miscellaneous Notes* Telephone Encounter - Odette Jacobs - 09/04/2024 9:39 AM EST Called back and asked if she would be able to do the exercises involved w/ her treatment; and she said whenever she walks she feels a significant burn. Per Carlotta, said if unable to cx today and cont on next week. She said she'll be here next week. * Telephone Encounter - Odette Jacobs - 09/04/2024 9:31 AM EST She called noting she had fallen yesterday and her knee is burning today. She asked if she should come to her 2:30 PT today (rs today from cx of 09/03) or wait till next week? documented in this encounterMercy McCune-Brooks [id number] Telephone encounter Note* Telephone Encounter - Odette Jacobs - 09/04/2024 9:31 AM EST She called noting she had fallen yesterday and her knee is burning today. She asked if she should come to her 2:30 PT today (rs today from cx of 09/03) or wait till next week? [facility] [id number] Telephone encounter Note* Telephone Encounter - Odette Jacobs - 09/03/2024 8:51 AM EST She called noting not feeling well and due to the weather would like to cx PT today. I offered a move down on time or move to tomorrow; she rs PT 09/04. [facility] [id number] Miscellaneous Notes* Telephone Encounter - Odette Jacobs - 09/03/2024 8:51 AM EST She called noting not feeling well and due to the weather would like to cx PT today. I offered a move down on time or move to tomorrow; she rs PT 09/04. documented in this encounterMercy McCune-Brooks [id number] History of Present illness Narrative* Gricelda Hammond, PT - 08/28/2024 12:30 PM EST Images from the original note [...] minutes) Strength, Endurance, Flexibility, ROM, HEP, Neural Mobilization,Power, and Core Stability as needed. Pt performed and instructed in home program this date; writteninstructions and pictures issued with good pt understanding. [...] Outcome Measure: Lower Extremity Functional Scale (LEFS): 26/ Rehab Diagnosis: left knee pain, left LE weakness, falls, difficulty walking Short Term Goal: To be met in 2 weeks Goal 1: Pt to be instructed in home exercise program. Prison Goals: To be met in 10 weeks Goal 1: Pt to report independence and compliance with home program. Goal 2: Pt to achieve 4+/5 strength left knee flexion and extension to assist with functional mobility and ADL's. Goal 3: Pt to score no less than 40/80 on LEFS indicating improved QOL. Goal 4: Pt to complete Five Time Sit to machine cell tuber less than 12.0 seconds with arms across [...] Please sign below. Date: documented in this encounterMercy McCune-Brooks [id number] Evaluation + Plan note Extracted from: Title:Pain Managment Follow up Author:Cady Baires [...] Future Appointments Appointment Date:01/05/2025 01:00:00 PM Scheduled Provider:SHERI JIMENES PA-C Location:[facility] Appointment Type:URO Office Visit [facility] 01-08-2025 NoteConsultation Note Patient: ROCK HERRERA Age: [...] medications for pain including Toradol. She stevens almost everything on her visual analog scale. Health [...] stool, # 120 tab(s), Refills(s) 6, Pharmacy: [facility], 162, cm, 03/30/20 10:05:00 EDT, Height/Length Dosing, 74.2, kg, 03/30/20 10:05:00 EDT, Weight Dosing carvedilol 25 mg Tab: 25 mg = 1 tab(s), Oral, BID, # 60 tab(s), Refills(s) 5, Pharmacy: [facility], 163, cm, 03/05/24 15:26:00 EDT, Height/Length Dosing, 72.8, kg, 03/05/24 15:26:00 EDT, Weight Dosing diltiazem CD 120 mg/24 hours Cap-ER: 120 mg = 1 cap(s), Oral, Daily, # 30 cap(s), Refills(s) 5, Pharmacy: [facility], 163, cm, 01/01/24 11:13:00 EDT, Height/Length Dosing, 75.6, kg, 12/31/23 13:01:00 EDT, Weight Dosing naltrexone 1.5 mg oral capsule: See Instructions, take one tablet daily, # 30 tab(s), Refills(s) 0,Pharmacy: [facility], 163, cm, 03/05/24 15:26:00 EDT, Height/Length Dosing, 72.8, kg, 03/05/24 15:26:00 EDT, Weight Dosing solifenacin 10 mg Tab: 10 mg = 1 tab(s), Oral, Daily, # 30 tab(s), Refills(s) 11, Pharmacy: [facility], 163, cm, 08/13/24 13:14:00 EST, [...] QID, PRN Dizziness m (more content not included)...[facility] HospitalComment on above: Result Comment: Electronically Signed By: Cady Alva PA-C\.br\Date and Time Signed: 08/26/24 12:56 [id number] NoteOrthopedic Surgery 08/03/2024 Revision To Submuscular Transposition, [...] is appropriate for this time. Assessment: Rock eHrrera is a 54 y.o. year old female [...] see her back in the clinic 4 wks.[facility] 08-17-2024 NoteOrthopedic Surgery Subjective Chief complaint: Chief [...] Arthritis Coronary artery disease Depression Diabetes mellitus ([facility]/HCC) Fibromyalgia, primary Heart valve disease Hyperlipidemia Hypertension Myocardial infarction (CMS/[facility]) Sleep apnea Objective General: Body mass index [...] her strengthening of the (more content not included)...[facility]12-23-2024 History of Present illness Narrative* Jena Vaz NP - 08/10/2024 2:26 PM EST Referral for neuropsych/creyos memory testing placed and sent to patient for completion. documented in this encounterMercy McCune-Brooks [id number] History of Present illness Narrative* Carlos Sanchez [...] states she have left arm surgery on by Dr. Rubi. She states she has [...] mg, Every 24 hours Continuous Glucose Sensor (Giga[employer]te[employer] Lilliam 2 Sensor) misc USE DIRECTED AND CHANGE EVERY 14 DAYS Continuous Glucose Transmitter ([employer] G6 transmitter) misc 1 UNIT BY MISCELLANEOUS ROUTE EVERY 3 (THREE) MONTHS. dilTIAZem CD (CARDIZEM CD) 120 mg, Daily EPINEPHrine (Epipen) 0.3 MG/0.3ML injection syringe INJECT 0.3MG INTO THE APPROPRIATE MUSCLE NEEDED FOR ALLERGIC REACTION UP TO 1 DOSE ergocalciferol (Vitamin D2) 1.25 MG (23210 UT) capsule 1 capsule, Weekly furosemide (LASIX) 20 mg, Daily glycopyrrolate (Robinul) 2 MG tablet TAKE 1 TABLET (2 MG) BY MOUTH AT BEDTIME lidocaine (Lidoderm) 5 % patch PLACE 1 PATCH ON THE SKIN DAILY. REMOVE & DISCARD PATCH WITHIN 12 HOURS OR DIRECTED BY MD Bruno, Anorectal, 5 % cream loperamide (Imodium) 2 [...] 75 mg, Oral, Daily PRN nystatin (Mycostatin) [id number] UNIT/ML suspension TAKE 5ML BY MOUTH FOUR [...] Behavior, Mental Status Change, other, Vomiting hallucinate [place] Saline Nasal Gel [Aloe-Sodium Chloride] Facial numbness/tongue [...] SCREEN: Past Medical History: Diagnosis Date Asthma ([facility]) Bipolar disorder ([facility]) Bunion COPD (chronic obstructive pulmonary disease) ([facility] Depression ([facility]) Diabetes ([facility]) Fallen arches Fibromyalgia GERD (gastroesophageal reflux disease) Hammer toe Hypertension ([facility]) Kidney stones [place] (myocardial infarction) ([facility]) Migraine ([facility]) Mitral valve prolapse Downey's neuroma Onychomycosis Osteoarthritis Oxygen dependent Plantar fasciitis Sleep apnea SVT (supraventricular tachycardia) ([facility]) Tinea pedis Past Surgical History: Procedure Laterality Date APPENDECTOMY BREAST LUMPECTOMY Left 10/2015 benign BREAST LUMPECTOMY Left 02/2016 benign BREAST SURGERY 12/2008 bilateral subareolar ductal exition CARPAL TUNNEL RELEASE x2 COLONOSCOPY 2013 egd/colonoscopy FOOT SURGERY FOOT SURGERY Right GANGLION CYST EXCISION Right 02/2016 wrist HYSTERECTOMY 2005 LITHOTRIPSY OTHER SURGICAL HISTORY left tenex OTHER SURGICAL HISTORY rt pb surgery OTHER SURGICAL HISTORY rt 2,3,4 ID REVISE ULNAR NERVE AT WRIST ulnar nerve [...] Not at risk (06/16/2024) Received from [facility] PHQ-2 Patient Health Questionnaire-2 Score: 0 REVIEW [...] in all four extremities, including at least art display maker, finger abductors, biceps, triceps, deltoid, toe flexors [...] Follow up 3 months. documented in this [facility]12-17-2024 NoteAddendum created 08/04/24 1211 by Negrito Garcia MD Clinical Note Signed, Intraprocedure Blocks editedHolzer Health System12-17-2024 Telephone encounter Note* Telephone Encounter - Jen Gomez - 08/04/2024 9:21 AM EST Patient called in requesting that lidocaine cream be called into her pharmacy for her. [facility] [id number] Miscellaneous Notes* Telephone Encounter - Jen Gomez - 08/04/2024 9:21 AM EST Patient called in requesting that lidocaine cream be called into her pharmacy for her. documented in this [facility]12-16-2024 NotePatient: Rock Herrera Procedure Summary Date: 08/03/24 Room / Location: [address] OR Anesthesia Start: 115 Anesthesia Stop: 1314 Procedures: REVISION TO SUBMUSCULAR [...] PACU per anesthesia protocol. No notable events documented.[facility]12[facility] Note Patient: Rock Herrera Procedure Summary Date: 08/03/24 Room / Location: [address] OR Anesthesia Start: 1155 Anesthesia Stop: 1313 Procedures: REVISION TO SUBMUSCULAR TRANSPOSITION, NERVE, ULNAR (Left: Forearm) REVISION RELEASE, CARPAL TUNNEL (Left: Wrist) Diagnosis: Left arm pain (Left arm pain [M79.602]) Surgeons: Lan Rubi MD Responsible Provider: Negrito Garcia MD Anesthesia Type: regional ASA Status: 3 Anesthesia Post Transport Note Transport to: PACU O2 Route: face mask Oxygen Flow (L/min): 4 Patient Monitor: direct observation Transport: uneventful Patient condition is: stableUnSt. [facility]12-[facility]24 Note Peripheral Block Patient location during procedure: [...] Heart rate change: no Slow fractionated injection: yesHolzer Health System12-16-2024 NotePeripheral Block Patient location during procedure: pre-op [...] Heart rate change: no Slow fractionated injection: [facility]12-16-2024 NotePatient: Rock Herrera Procedure Information Date/Time: 08/03/24 1215 Procedures: REVISION TO SUBMUSCULAR TRANSPOSITION, NERVE, ULNAR (Left: Forearm) REVISION RELEASE, CARPAL TUNNEL (Left: Wrist) Location: [facility] OR [address] [place] [address] [facility] OR Surgeons: Lan Rubi MD Relevant Problems [...] patient. Plan discussed with CAA. Additional Equipment RequestsHolzer Health System12-11-2024 History of Present illness Narrative* Allison Rothmanmelissa, WIG DRESSER - 07/29/2024 1:30 PM EST Reason for [...] Oral, Daily ergocalciferol (Vitamin D2) 1.25 MG (83135 UT) capsule 1 capsule, Oral, Weekly furosemide [...] mg, Oral, 4 times daily nystatin (Mycostatin) [id number] UNIT/ML suspension TAKE 5ML BY MOUTH FOUR [...] Behavior, Mental Status Change, other, Vomiting hallucinate [place] Saline Nasal Gel [Aloe-Sodium Chloride] Facial numbness/tongue [...] Change in bowel habits 02/25/2023 Anxiety state ([facility]) 05/01/2011 Anxiety 05/01/2011 Bicipital tenosynovitis 10/22/2013 Attention deficit hyperactivity disorder ([facility]) 10/05/2021 Gastric foreign body 02/25/2023 Esophageal dysmotility 05/21/2022 Gastric bezoar 05/21/2022 Gastroesophageal reflux disease 10/23/2013 Bipolar disorder ([facility]) 10/23/2013 Borderline personality disorder ([facility]) 10/05/2021 Chronic depression ([facility]) 05/01/2011 Chronic obstructive lung disease ([facility]) 10/23/2013 Contracture, right ankle 02/25/2023 Colon polyp 02/25/2023 Chronic, continuous use of opioids 02/28/2015 Current smoker 10/10/2021 Degenerative joint disease of shoulder region 10/22/2013 Diabetes ([facility]) 02/25/2023 Type 2 diabetes mellitus ([facility]) 10/10/2021 Xerostomia 12/14/2020 Vertigo 10/05/2021 Dizziness 02/25/2023 [...] 10/23/2013 Plantar fasciitis, bilateral 11/12/2022 Personality disorder ([facility]) 11/12/2022 Peripheral venous insufficiency 05/21/2022 Parotid gland enlargement 12/14/2020 Overweight 01/24/2023 Osteoporosis ([facility]) 02/25/2023 Osteopenia of hip 02/25/2023 Osteochondritis dissecans of right ankle 05/21/2022 Obesity with body mass index 30 or greater 05/21/2022 BMI 30.0-30.9,adult 02/25/2023 Neuropathy 10/05/2021 Nausea and vomiting 02/25/2023 Downey's neuroma of both feet 11/12/2022 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 ([facility]) 01/03/2023 Mitral valve prolapse 10/23/2013 Migraine ([facility]) 04/20/2012 Menopause 02/25/2023 Lumbosacral spondylosis without myelopathy [...] 11/12/2022 Generalized osteoarthritis 10/23/2013 Posttraumatic stress disorder (CMS/HCC) 10/05/2021 Compression injury of nerve 02/25/2023 Obsessive-compulsive disorder (CMS/HCC) 10/05/2021 Generalized anxiety disorder (CMS/HCC) 10/23/2013 Gastric erosions 11/12/2022 Fibromyositis 10/23/2013 Feeling of incomplete bladder emptying 11/12/2022 Family history of colorectal cancer 02/25/2023 Essential hypertension (CMS/HCC) 10/10/2021 Screen for colon cancer 02/25/2023 Encounter for medication monitoring 10/22/2022 Dysuria 02/25/2023 Dysphagia 05/21/2022 Disorder of sacrum 01/26/2020 Disorder of bursae of shoulder region 10/22/2013 Difficulty walking 05/21/2022 Diabetic peripheral neuropathy (CMS/HCC) 05/21/2022 Diabetes mellitus without complication (CMS/HCC) 02/25/2023 Osteoarthritis 04/12/2020 Deformity of metatarsal 02/25/2023 Gastritis 11/12/2022 Sacral contusion 04/04/2023 Lumbar strain, sequela 04/04/2023 Hyperlipidemia (CMS/HCC) 10/23/2013 Cervical paraspinal muscle spasm 05/02/2023 Lumbar radiculopathy 05/02/2023 Restless leg syndrome 05/02/2023 Drug-induced parkinsonism (HCC) (CMS/HCC) 05/02/2023 Lesion of ulnar nerve, bilateral 07/08/2023 [...] Problems Past Medical History: Diagnosis Date Asthma ([facility]) Bunion COPD (chronic obstructive pulmonary disease) ([facility]) Depression ([facility]/HCC) Fallen arches GERD (gastroesophageal reflux disease) Hammer toe Hypertension ([facility]CC) Kidney stones [place] (myocardial infarction) ([facility]) Downey's neuroma Onychomycosis Oxygen dependent Plantar fasciitis SVT (supraventricular tachycardia) ([facility]) Tinea pedis HISTORY PAST MEDICAL HISTORY SOCIAL HISTORY Past Medical History: Diagnosis Date Asthma (CMS/HCC) Bipolar disorder (CMS/HCC) Bunion COPD (chronic obstructive pulmonary disease) ([facility]CC) Depression ([facility]CC) Diabetes (CMS/HCC) Fallen arches Fibromyalgia GERD (gastroesophageal reflux disease) Hammer toe Hypertension ([facility]CC) Kidney stones [place] (myocardial infarction) ([facility]/HCC) Migraine ([facility]/HCC) Mitral valve prolapse Downey's neuroma Onychomycosis Osteoarthritis Oxygen dependent Plantar fasciitis Sleep apnea SVT (supraventricular tachycardia) ([facility]) Tinea pedis Social History Tobacco Use Smoking [...] pb surgery OTHER SURGICAL HISTORY rt 2,3,4 ID REVISE ULNAR NERVE AT WRIST ulnar nerve [...] nursing note reviewed. Exam conducted with a job hand present. Vitals: Estimated body mass index is [...] AND HR HPV DNA 3. Osteoporosis, post-menopausal ([facility]/HCC) M81.0 DEXA bone density Annual: Patient presents [...] of: David Villalobos DO documented in this encounterMercy McCune-Brooks [id number] History of Present illness Narrative* Martin Arango, DPM - 06/18/2024 3:00 PM EDT [...] Behavior, Mental Status Change, other, Vomiting hallucinate [place] Saline Nasal Gel [Aloe-Sodium Chloride] Facial numbness/tongue [...] History: Past Medical History: Diagnosis Date Asthma ([facility]) Bipolar disorder (CMS/HCC) Bunion COPD (chronic obstructive pulmonary disease) (CMS/HCC) [...] time., Disp: , Rfl: Continuous Blood Gluc Inside Wirer (Dexcom G6 backhaul driver) device, 1 UNIT YEARLY, Disp: , Rfl: Continuous Blood Gluc Sensor (Dexcom G6 Sensor[place] [facility] [place] 1 UNIT DIRECTED AND CHANGE EVERY 10 DAYS, Disp: , Rfl: ergocalciferol (Vitamin D2) 1.25 MG (74248 UT) capsule, Take 1 capsule by mouth [...] oral route., Disp: , Rfl: nystatin (Mycostatin) 560002 UNIT/ML suspension, TAKE 5ML FOUR TIMES A [...] pedal pulses to bilateral feet Neuro: 5.07 [place]ina monofilament test positive to digits and [...] polyneuropathy, with long-term current use of insulin ([facility]) PLAN Patient to continue with oral anti [...] consider Martin Arango DPM documented in this encounterMercy McCune-Brooks [id number] NoteOrthopaedic Surgery Subjective Pain and New Patient [...] hand. 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 wrist extension/flexion [...] reason I do not see it in [facility], although I can see other clinic [...] there is anything different I will contact her.[facility]10-29-2024 NoteUS SOFT TISS HEAD NECK Procedure: US SOFT TISS HEAD NECK; Reason for Exam: Parotid gland enlargement; Xerostomia; Comparison: None IMPRESSION: * OMERACT 1. Normal sonographic appearance of the parotid gland parenchyma. Normal Doppler flow. * 1.0 x 0.7 x 1.0 cm simple appearing left infraparotid cystic lesion. Finalized by Dandre Prabhakar on 06/16/2024 7:56 [facility] 06-15-2024 Telephone encounter Note* Telephone Encounter - Janelle Webster - 06/15/2024 [...] next step for her. She was understanding. [facility]Bro[facility] [id number] Miscellaneous Notes* Telephone Encounter - Janelle Darin - 06/15/2024 [...] her. She was understanding. documented in this encounterMercy McCune-Brooks HospitalPpbqahxfcp39-51-5477 Telephone encounter Note* Telephone Encounter - Teressa Parikh - 06/09/2024 3:40 PM EDT I did speak with patient and she understood. I did let patient know to contact pain management or her family doctor. [facility]-Bro[facility] HospitalIbasnqhmur01-81-4238 Miscellaneous Notes* Telephone Encounter - Teressa Parikh [...] over for pain. Please send to [facility] in [place]. Patient phone number is [phone]. * Telephone Encounter - Teressa Parikh - 06/09/2024 10:38 AM EDT Patient called stating that she is in a lot of pain with her LT leg. Patient stated she has tried ice, heat and lidocaine cream. She stated she had the nerve block test done 06/05. Patient would like some suggestions. Please advise [phone]. documented in this encounterMercy McCune-Brooks HospitalOqhwtbmzas06-19-5273 Telephone encounter Note* Telephone Encounter - Chico Romero NP - 06/09/2024 3:33 PM EDT Needs to follow up with pain management. We will not be sending any medication. [facility] Work Phone: 1(609) 679-532310-22-2024 Telephone encounter Note* Telephone Encounter - Teressa Parikh - 06/09/2024 3:27 PM EDT Patient called again requesting a RX be sent over for pain. Please send to [facility] in [place]. Patient phone number is [phone]. [facility] HospitalYnnffwfcio78-10-1411 Telephone encounter Note* Telephone Encounter - Teressa Parikh - 06/09/2024 10:38 AM EDT Patient called stating that she is in a lot of pain with her LT leg. Patient stated she has tried ice, heat and lidocaine cream. She stated she had the nerve block test done 06/05. Patient would like some suggestions. Please advise [phone]. [facility] HospitalInfpavxzzx35-48-3314 Telephone encounter Note* Telephone Encounter - Amaris Huynh MA - 05/28/2024 1:26 PM EDT Patient calls requesting refill of Ammonium Lactate. (I don't see it in the chart for the Refill ), to [facility]. She says that her feet are really dry and also wants to let you know that her toes still hurt. [facility]Bro[facility] HospitalKvpzfgjnva40-70-1673 Miscellaneous Notes* Telephone Encounter - Amaris Huynh MA - 05/28/2024 1:26 PM EDT Patient calls requesting refill of Ammonium Lactate. (I don't see it in the chart for the Refill ), to [facility]. She says that her feet are really dry and also wants to let you know that her toes still hurt. documented in this encounterMercy McCune-Brooks HospitalZdlcsbxiky51-42-5800 History of Present illness Narrative* Martin Arango [...] Behavior, Mental Status Change, other, Vomiting hallucinate [place] Saline Nasal Gel [Aloe-Sodium Chloride] Facial numbness/tongue [...] History: Past Medical History: Diagnosis Date Asthma ([facility]) Bipolar disorder ([facility]) Bunion COPD (chronic obstructive pulmonary disease) ([facility]) Depression ([facility]) Diabetes ([facility]) Difficulty walking Fallen arches Fibromyalgia Hammer toe Kidney stones Migraine ([facility]) Mitral valve prolapse Downey's neuroma Onychomycosis [...] time., Disp: , Rfl: Continuous Blood Gluc Inside Wirer (Dexcom G6 backhaul driver) device, 1 UNIT YEARLY, Disp: , Rfl: Continuous Blood Gluc Sensor (Dexcom G6 Sensor[place] [facility] [place] 1 UNIT DIRECTED AND CHANGE EVERY 10 DAYS, Disp: , Rfl: ergocalciferol (Vitamin D2) 1.25 MG (54365 UT) capsule, Take 1 capsule by mouth [...] oral route., Disp: , Rfl: nystatin (Mycostatin) 480433 UNIT/ML suspension, TAKE 5ML FOUR TIMES A [...] pedal pulses to bilateral feet Neuro: 5.07 [place]ina monofilament test positive to digits and [...] polyneuropathy, with long-term current use of insulin ([facility]) PLAN Pt to d/c abx. Patient to [...] Ibuprofen Martin Arango DPM documented in this encounterMercy McCune-Brooks HospitalVsksffjkuw70-08-4993 Telephone encounter Note* Telephone Encounter - Anjelica Rutledge - 05/11/2024 12:28 PM EDT Patient called and states that the Biotin is not helping with Neuropathy. States that it is gettingworse and more frequent. Please advise. [facility] [id number] Miscellaneous Notes* Telephone Encounter - Anjelica Rutledge - 05/11/2024 12:28 PM EDT Patient called and states that the Biotin is not helping with Neuropathy. States that it is gettingworse and more frequent. Please advise. documented in this encounterMercy McCune-Brooks HospitalQuxcryfchv11-25-5120 Telephone encounter Note* Telephone Encounter - Inessa Fernandez RN - 05/05/2024 4:20 PM EDT [facility] sent will not see pt due to being discharged from the practice. Spoke with pt, she is willing to try [facility] pain clinic and as second choice will see Dr Pink. Will send referral to Dr Maharaj at [facility]-Brooks HospitalIitudkhkks47-40-1891 Miscellaneous Notes* Telephone Encounter - Inessa Fernandez RN - 05/05/2024 4:20 PM EDT [facility] sent will not see pt due to being discharged from the practice. Spoke with pt, she is willing to try [facility] pain clinic and as second choice will see Dr Pink. Will send referral to Dr Maharaj at [facility] * Telephone Encounter - Verona Castano - 05/05/2024 11:04 AM EDT Patient called stating that a referral was going to be sent to [facility] pain management. She did call over there and they told her that they didn't receive anything. documented in this encounterMercy McCune-Brooks [id number] Telephone encounter Note* Telephone Encounter - Verona Castano - 05/05/2024 11:04 AM EDT Patient called stating that a referral was going to be sent to [facility] pain management. She did call over there and they told her that they didn't receive anything. [facility] [id number] History of Present illness Narrative* Carlos Sanchez MD - 04/27/2024 2:00 PM EDT Images from the original note were not included. CHIEF COMPLAINT REASON FOR VISIT: Headaches, vertigo, neuropathy HPI: Rock Herrera is a 53 y.o. female who presents for A follow up for migraines, vertigo, RLS, neuropathy, and lumbar radiculopathy. Patient states she has still not gotten her nurtec from [facility]. She states that we need to try [...] Oral, Daily ergocalciferol (Vitamin D2) 1.25 MG (31768 UT) capsule 1 capsule, Oral, Weekly furosemide [...] 75 mg, Sublingual, As needed nystatin (Mycostatin) [id number] UNIT/ML suspension TAKE 5ML BY MOUTH FOUR [...] Behavior, Mental Status Change, other, Vomiting hallucinate [place] Saline Nasal Gel [Aloe-Sodium Chloride] Facial numbness/tongue [...] SCREEN: Past Medical History: Diagnosis Date Asthma (CMS/HCC) Bipolar disorder (CMS/HCC) Bunion COPD (chronic obstructive pulmonary disease) ([facility]/HCC) Depression (CMS/HCC) Diabetes (CMS/HCC) Fallen arches Fibromyalgia GERD (gastroesophageal reflux disease) Hammer toe Hypertension (CMS/HCC) Kidney stones [place] (myocardial infarction) (CMS/HCC) Migraine (CMS/HCC) Mitral valve prolapse Downey's neuroma Onychomycosis Osteoarthritis Oxygen dependent Plantar fasciitis Sleep apnea SVT (supraventricular tachycardia) ([facility]) Tinea pedis Past Surgical History: Procedure Laterality Date APPENDECTOMY BREAST LUMPECTOMY Left 10/2015 benign BREAST LUMPECTOMY Left 02/2016 benign BREAST SURGERY 12/2008 bilateral subareolar ductal exition CARPAL TUNNEL RELEASE x2 COLONOSCOPY 2013 egd/colonoscopy FOOT SURGERY FOOT SURGERY Right GANGLION CYST EXCISION Right 02/2016 wrist HYSTERECTOMY 2005 LITHOTRIPSY OTHER SURGICAL HISTORY left tenex OTHER SURGICAL HISTORY rt pb surgery OTHER SURGICAL HISTORY rt 2,3,4 ID REVISE ULNAR NERVE AT WRIST ulnar nerve [...] Depression: Not at risk (02/27/2024) Received from [facility] PHQ-2 Total Score: 0 Recent Concern: Depression - At risk (12/18/2023) Received from [facility], [facility] PHQ-2 Total Score: 7 REVIEW OF SYMPTOMS: [...] reflexes: Jeffery's absent. Ankle clonus absent. Coordination Jondwi-ld-qqqv, rapid alternating movements and yvbc-qy-ufct normal bilaterally without dysmetria. Gait Normal casual, [...] Follow up 3 months documented in this encounterMercy McCune-Brooks [id number] History of Present illness Narrative* Martinmelissa Arango, DPM - 04/23/2024 9:20 AM EDT Patient: Rock [...] Behavior, Mental Status Change, other, Vomiting hallucinate [place] Saline Nasal Gel [Aloe-Sodium Chloride] Facial numbness/tongue [...] History: Past Medical History: Diagnosis Date Asthma ([facility]) Bipolar disorder ([facility]) Bunion COPD (chronic obstructive pulmonary disease) ([facility]) Depression ([facility]) Diabetes ([facility]) Difficulty walking Fallen arches Fibromyalgia Hammer [...] time., Disp: , Rfl: Continuous Blood Gluc Inside Wirer (Dexcom G6 backhaul driver) device, 1 UNIT YEARLY, Disp: , Rfl: Continuous Blood Gluc Sensor (Dexcom G6 Sensor[place] [facility] [place] 1 UNIT DIRECTED AND CHANGE EVERY 10 DAYS, Disp: , Rfl: ergocalciferol (Vitamin D2) 1.25 MG (29201 UT) capsule, Take 1 capsule by mouth [...] oral route., Disp: , Rfl: nystatin (Mycostatin) [id number] UNIT/ML suspension, TAKE 5ML FOUR TIMES A [...] pedal pulses to bilateral feet Neuro: 5.07 [place]ina monofilament test positive to digits and [...] polyneuropathy, with long-term current use of insulin ([facility]) PLAN Pt to d/c abx. Patient to [...] boot Martin Arango DPM documented in this encounterMercy McCune-Brooks [id number] History of Present illness Narrative* Pastora Alcantara, - 04/21/2024 1:00 PM EDT Images from the original note were not included. HISTORY OF PRESENT ILLNESS: Rock Herrera is an 53 y.o. @ female. Chief complaint LT knee pain LT Knee: here to discuss options per Ros 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 A1c 5.9 on 02/27/24. +Tobacco user. LT knee pain x many years and worse x about 7 months (2023). She has had issues prior to this.She had a knee scope Dr. Mondragon without relief. She does admit twisting her [...] wearing a brace, she got this from [facility] orthopedics. She was advised to quit smoking by [facility]. Had cortisone injx in the past [...] done on 03/27/24. [place]: ER/XR 01/31/24 [facility] knee [facility]rosc[facility] (unsure of the year), TYL, heat, [facility] orthopedics steroid injections spring 2023, lidocaine [...] mouth Daily ergocalciferol (Vitamin D2) 1.25 MG (58690 UT) capsule Take 1 capsule by mouth [...] 75 mg under the tongue nystatin (Mycostatin) [id number] UNIT/ML suspension TAKE 5ML BY MOUTH FOUR [...] HISTORY: Past Medical History: Diagnosis Date Asthma (CMS/HCC) Bipolar disorder (CMS/HCC) Bunion COPD (chronic obstructive pulmonary disease) (CMS/HCC) Depression (CMS/HCC) Diabetes (CMS/HCC) Fallen arches Fibromyalgia GERD (gastroesophageal reflux disease) Hammer toe Hypertension (CMS/HCC) Kidney stones [place] (myocardial infarction) (CMS/HCC) Migraine (CMS/HCC) Mitral valve prolapse Downey's neuroma Onychomycosis Osteoarthritis Oxygen dependent Plantar fasciitis Sleep apnea SVT (supraventricular tachycardia) (CMS/HCC) Tinea pedis ALLERGIES: Allergies Allergen Reactions Codeine [...] Behavior, Mental Status Change, other, Vomiting hallucinate [place] Saline Nasal Gel [Aloe-Sodium Chloride] Facial numbness/tongue [...] left knee dated January 31, 2024 from [facility]. There is medial compartmentcollapse with subchondral sclerosis. There are no fractures detected. I reviewed an MRI of the left knee dated March 27, 2024 from [facility]. There is complete loss of the articular cartilage in the medial compartment with qigq-fh-xsml. There is an extruded torn medial meniscus [...] Dr. Alcantara/barbie Alcantara D.O. documented in this encounterMercy McCune-Brooks [id number] History of Present illness Narrative* Pastora Alcantara, DO - 04/14/2024 1:00 PM EDT Images [...] the elbow (February and March 2024) at [facility] O.T. with no improvement, she notes it made her hand and elbow weaker. She notes she was scheduled for surgery this year on the elbow at [facility] but it got cancelled due to not having therapy, [place]: EMG done at Dr. Vince Sanchez on 03/13/23, LT elbow mri [facility] 01/27/24, , O.T. valerie snell (February-Mar 2024) LT Knee: here to discuss options per Ros 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 A1c 5.9 on 02/27/24. +Tobacco user. She is RT handed. LT knee pain x about 7 months (2023). She has had issues prior to this. She had a knee scope Dr. Mondragon without relief. Denies recent injury. Pain is medial and posterior. Pain at rest 8/10 with activities 10+/10. She is not taking anything currently. Intermittent swelling based off of activities. Intermittent catching and locking.Intermittent give way sensation. Uses a walker prn. Has tried TYL without relief.Using heat with some relief at times. She tried wearing a brace, she got this from [facility] orthopedics. Had 2 steroid injections from [facility] in the past few months without relief. She was advised to quit smoking by [facility]. She was approved for the gel [...] done on 03/27/24. [place]: ER/XR 01/31/24 [facility] knee arthroscopy (unsure of the year), TYL, heat, [facility] orthopedics steroid injections spring 2023, lidocaine [...] mouth Daily ergocalciferol (Vitamin D2) 1.25 MG (94025 UT) capsule Take 1 capsule by mouth [...] 75 mg under the tongue nystatin (Mycostatin) [id number] UNIT/ML suspension TAKE 5ML BY MOUTH FOUR [...] TAKE WITH MEALS. [DISCONTINUED] Continuous Blood Gluc Inside Wirer (Dexcom G6 backhaul driver) device 1 UNIT YEARLY [DISCONTINUED] Continuous Blood Gluc Sensor (Dexcom G6 Sensor[place] [facility] [place] 1 UNIT DIRECTED AND CHANGE EVERY [...] HISTORY: Past Medical History: Diagnosis Date Asthma ([facility]) Bipolar disorder ([facility]) Bunion COPD (chronic obstructive pulmonary disease) ([facility]) Depression ([facility]) Diabetes ([facility]) Fallen arches Fibromyalgia GERD (gastroesophageal reflux disease) Hammer toe Hypertension ([facility]) Kidney stones [place] (myocardial infarction) ([facility]) Migraine ([facility]) Mitral valve prolapse Downey's neuroma Onychomycosis Osteoarthritis Oxygen dependent Plantar fasciitis Sleep apnea SVT (supraventricular tachycardia) ([facility]) Tinea pedis ALLERGIES: Allergies Allergen Reactions Codeine [...] Behavior, Mental Status Change, other, Vomiting hallucinate [place] Saline Nasal Gel [Aloe-Sodium Chloride] Facial numbness/tongue [...] Dr. Alcantara/barbie Alcantara D.O. documented in this encounterMercy McCune-Brooks [id number] History of Present illness Narrative* Cj Zepeda NP - 04/13/2024 12:00 PM EDT Subjective Patient ID: Rock Herrera is a 53 y.o. female. LT Elbow/ LT Wrist Pain since 2020. Denies injury. She had previous surgery on this elbow 2005/2006? By Dr. Romeo (orthopedic) ulnar nerve. She [...] the elbow (February and March 2024) at [facility] O.T. with no improvement, she notes it made her hand and elbow weaker. She notes she was schedule for surgery but it got cancelled since she did not have therapy, she wasgoing to have surgery done at [facility]. [place]: EMG done at Dr. Vince Sanchez on 03/13/23, LT elbow mri [facility] 01/27/24, , O.T. valerie snell (February-Mar 2024) Objective Left Hand Exam Muscle Strength Glycerine Plant Operator: 4-/5 Left Elbow Exam Tests Tinel's sign (cubital tunnel): positive Elbow Musculoskeletal Exam Inspection Left Ecchymosis: none Swelling: none Deformity: none Palpation Left Tenderness: present Ulnar nerve: moderate Range of Motion Left Active Extension: 0 Active Pronation: 90 Passive Pronation: 90 Active Supination: 90 Passive Supination: 90 Strength Left Finger abduction: 4-/5. Glycerine Plant Operator strength: 4-/5. Neurovascular Left Radial pulse: normal [...] MRI of the left elbow done at [facility] on 01/27/24 is unremarkable for fracture and [...] Alcantara to discuss options. documented in this encounterMercy McCune-Brooks [id number] History of Present illness Narrative* Martin Jerome Harsh, DPM - 04/09/2024 10:30 AM EDT Patient: Rock [...] Behavior, Mental Status Change, other, Vomiting hallucinate [place] Saline Nasal Gel [Aloe-Sodium Chloride] Facial numbness/tongue [...] History: Past Medical History: Diagnosis Date Asthma ([facility]) Bipolar disorder ([facility]) Bunion COPD (chronic obstructive pulmonary disease) ([facility]) Depression ([facility]) Diabetes ([facility]) Difficulty walking Fallen arches Fibromyalgia Hammer toe Kidney stones Migraine ([facility]) Mitral valve prolapse Downey's neuroma Onychomycosis [...] time., Disp: , Rfl: Continuous Blood Gluc Inside Wirer (Dexcom G6 backhaul driver) device, 1 UNIT YEARLY, Disp: , Rfl: Continuous Blood Gluc Sensor (Dexcom G6 Sensor[place] [facility] [place] 1 UNIT DIRECTED AND CHANGE EVERY 10 DAYS, Disp: , Rfl: ergocalciferol (Vitamin D2) 1.25 MG (79091 UT) capsule, Take 1 capsule by mouth [...] oral route., Disp: , Rfl: nystatin (Mycostatin) [id number] UNIT/ML suspension, TAKE 5ML FOUR TIMES A [...] pedal pulses to bilateral feet Neuro: 5.07 [place] Gina monofilament test positive to digits and [...] anti-inflammatories Martin Arango DPM documented in this encounterMercy McCune-Brooks [id number] History of Present illness Narrative* Cj Zepeda NP - 04/08/2024 12:30 PM EDT Subjective Patient ID: Rock Herrera is a 53 y.o. female. LT Knee *Robert Furlong Referral She sees a spaghetti machine operator and pie cutter LT knee pain x about 7 months (2023). She has had issues prior to this. She had a knee scope Dr. Mondragon without relief. Denies injury. Pain is medial and posterior. Pain at rest 8/10 with activities 10+/10. She is not taking anything currently. Has tried TYL without relief. Using heat with some relief at times. She is no longer wearing a brace, she got this from [facility] from [facility] orthopedics. [facility] orthopedics and had 2 steroid injections in the past few months without relief. She notes she needed to stop smoking otherwise they would not be able to help her at [facility]. She was approved for the gel injections but had them on the right and opted to not have them done on the left. Has tried voltarengel without relief. Went to [facility] ER on 01/31/24 and had xrays of the LT knee and was prescribed lidocaine patches (without relief). She then had an MRI of the LT knee done on 03/27/24. Intermittent swelling based off of activities. Intermittent catching and locking. Intermittent give way sensation. If the pain is bad enough she will use a walker. [place]: ER/XR 01/31/24 [facility], MRI/03/27/24/[facility], Dr. Mondragon knee arthroscopy unsure of the year prior to him retiring, TYL, heat, [facility] orthopedics steroid injections spring 2023, lidocaine [...] I reviewed the er note from 01/31/24 [facility], had xrays done. MRI LT knee [facility] dated 03/31/24 reveals advanced arthritic change in the medial compartment of the left knee along with extruded tear of the medial meniscus. This is byce-vt-zrkc with subchondralcyst. there is also an incidental [...] to discuss surgical intervention, documented in this encounterMercy McCune-Brooks [id number] NoteConsultation Note Patient is presenting with a [...] call with any questions or concerns that arise.[facility] HospitalComment on above:Result Comment: Electronically Signed By: Andrew Eid DO\.br\Date and Time Signed: 03/05/24 15:55 [id number] Evaluation + Plan noteExtracted from: Title:chronic pain Author:Andrew Eid DO Date:03/05/24 [...] Date:07/30/2024 01:45:00 PM Scheduled Provider:Kehinde Davalos MD [facility] Type:Cardiology Follow Up (FT) Appointment Date:01/05/2025 01:00:00 PM Scheduled Provider:SHERI JIMENES PA-C Location:[facility] Appointment Type:URO Office Visit Future Scheduled Tests Radiology* Echo Transthoracic Complete 05/20/23 [facility]05-29-2024 Evaluation + Plan [...] Date:01/30/2024 02:15:00 PM Scheduled Provider:En Carmen PA-C [facility]ment Type:Cardiology Follow Up (FT) Appointment Date:03/05/2024 03:30:00 PM Scheduled Provider:Andrew Eid DO Location:[facility] Appointment Type:Pain Management - Follow Up (FT) Appointment Date:01/05/2025 01:00:00 PM Scheduled Provider:SHERI JIMENES PA-C Location:[facility] [place] Appointment Type:URO Office Visit Future Scheduled Tests Laboratory* Pancreatic Elastase, Fecal 01/29/23 * Fecal WBC Lactoferrin 01/29/23 * Giardia lamblia, Direct Detection EIA 01/29/23 * O & P Exam, Routine 01/29/23 * Clostridium Difficile PCR 01/29/23 * Enteric Panel by PCR 01/29/23 Radiology* Echo Transthoracic Complete 05/20/23 [facility]05-15-2024 Evaluation + Plan [...] Date:01/30/2024 02:15:00 PM Scheduled Provider:En Carmen PA-C [facility] Type:Cardiology Follow Up (FT) Appointment Date:02/26/2024 11:15:00 AM Scheduled Provider:Andrew Eid DO [facility] [employer] Appointment Type:Pain Management - Follow Up (FT) Appointment Date:01/05/2025 01:00:00 PM Scheduled Provider:SHERI JIMENES PA-C Location:[facility] Appointment Type:URO Office Visit Future Scheduled Tests Laboratory* Pancreatic Elastase, Fecal 01/29/23 * Fecal WBC Lactoferrin 01/29/23 * Giardia lamblia, Direct Detection EIA 01/29/23 * O & P Exam, Routine 01/29/23 * Clostridium Difficile PCR 01/29/23 * Enteric Panel by PCR 01/29/23 Radiology* Echo Transthoracic Complete 05/20/23 [facility]05-14-2024 Hospital Discharge instructions [...] nerve stimulation). ?For women, using a medical planner to prevent urine leaks. This is a [...] right after experiencing incontinence. General instructions Take pydu-jbu-ccsjybf and prescription medicines only as told by [...] important. Where to find more information National Hull of Diabetes and Digestive and Kidney Diseases: www.niddk.nih.gov [place] [employer]: www.urologyhealth.org Contact a health care [...] provider. Document Revised: 03/10/2021 Document Reviewed: 03/10/2021 [employer] Patient Education 2022 [employer]. Follow Up Care 09/17/2023 08:57:54 With:SHERI JIMENES PA-C, URL Address: [address] [facility] [place] [address] When: Unknown [facility] Evaluation + Plan noteExtracted from: Title:L4/5 interlaminar epid ural steroid injection [...] the epidural space was confirmed using the cxpr-tw-tznnteuujn technique and 2 cc of air. Injection [...] Date:12/31/2023 01:00:00 PM Scheduled Provider:SHERI JIMENES PA-C Location:[facility] [place] Appointment Type:URO Office Visit Appointment Date:01/01/2024 11:00:00 AM Scheduled Provider:Cady Alva PA-C Location:[facility] Appointment Type:Pain Management - [...] Panel 12/25/22 Radiology* Echo Transthoracic Complete 05/20/23 [facility]03-20-2024 Evaluation + Plan [...] Date:12/31/2023 01:00:00 PM Scheduled Provider:SHERI JIMENES PA-C Location:[facility] Appointment Type:URO Office Visit Future Scheduled Tests Laboratory* Pancreatic Elastase, Fecal 01/29/23 * Fecal WBC Lactoferrin 01/29/23 * Giardia lamblia, Direct Detection EIA 01/29/23 * O & P Exam, Routine 01/29/23 * Clostridium Difficile PCR 01/29/23 * Enteric Panel by PCR 01/29/23 * CBC w/ Auto Diff 12/25/22 * Comprehensive Metabolic Panel 12/25/22 Radiology* Echo Transthoracic Complete 05/20/23 [facility]02-09-2024 Miscellaneous Notes* Telephone Encounter - Anjelica Rutledge - 09/27/2023 8:08 AM EST Patient left message requesting if she can get refill of Tramadol. Please advise. [phone] documented in this encounterNOSac-Osage [id number] Telephone encounter Note* Telephone Encounter - Anjelica Rutledge - 09/27/2023 8:08 AM EST Patient left message requesting if she can get refill of Tramadol. Please advise. [phone] [facility] [id number] History of Present illness Narrative* Martin Arango [...] Behavior, Mental Status Change, other, Vomiting hallucinate [place] Saline Nasal Gel [Aloe-Sodium Chloride] Facial numbness/tongue [...] History: Past Medical History: Diagnosis Date Asthma ([facility]) Bipolar disorder ([facility]) Bunion COPD (chronic obstructive pulmonary disease) ([facility] Depression ([facility]) Diabetes ([facility]) Difficulty walking Fallen arches Fibromyalgia Hammer toe Kidney stones Migraine ([facility]) Mitral valve prolapse Downey's neuroma Onychomycosis [...] time., Disp: , Rfl: Continuous Blood Gluc Inside Wirer (Dexcom G6 backhaul driver) device, 1 UNIT YEARLY, Disp: , Rfl: Continuous Blood Gluc Sensor (Dexcom G6 Sensor) [facility] [place] USE 1 UNIT DIRECTED AND CHANGE EVERY 10 DAYS, Disp: , Rfl: ergocalciferol (Vitamin D2) 1.25 MG (17772 UT) capsule, Take 1 capsule by mouth [...] oral route., Disp: , Rfl: nystatin (Mycostatin) 329293 UNIT/ML suspension, TAKE 5ML FOUR TIMES A [...] breath with positive history of tachycardia 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 Contracture of right ankle 5. [...] risks, alternatives, benefits, post op complications and alf expectations were discussed including but not limited to: infection,bone infection,wound dehiscence hardware failure and irritation,wound dehiscence,delay union/mal union/non union of bone. RSDS,neuroma,duty limitations,DVT/PE, [place],nerve damage, scar, loss of sensation, swelling. Pt [...] date and current (date) documented in this encounterMercy McCune-Brooks [id number] Hospital Discharge instructions Patient Education 09/17/2023 08:52:34 [...] Follow these instructions at home: Medicines Take nkii-jwr-psdxgnk and prescription medicines only as told by [...] or the blood stops without treatment. Take dfat-leb-qihtruu and prescription medicines only as told by your health care provider. Drink enough fluid to keep your urine pale yellow. This information is not intended to replace advice given to you by your health care provider. Make sure you discuss any questions you have with your health care provider. Document Revised: 04/05/2021 Document Reviewed: 04/05/2021 [employer] Patient Education 2022 [employer]. Follow Up Care 06/13/2023 09:13:04 With:SHERI JIMENES PA-C, URL Address: [address] [place] [address] [phone] When: Unknown Comments:3 mos (restart med) [facility] 01-09-2024 Evaluation note* Encounter Date [...] Nicotine dependence, cigarettes, uncomplicated (ICD-10 - F17.210) [employer] Other 07-11-2023 Evaluation note* Encounter Date Diagnosis [...] Nicotine dependence, cigarettes, uncomplicated (ICD-10 - F17.210) [employer] Other 06-01-2023 Hospital Discharge instructions Patient Education [...] worse throughout the day. 01/17/2023 09:45:38 Hemorrhoids, Njtt-xm-Oknt Hemorrhoids Hemorrhoids are swollen veins that may [...] 3 times a day. General instructions Take edkp-zis-hdwlscn and prescription medicines only as told by [...] provider. Document Revised: 02/14/2022 Document Reviewed: 02/14/2022 [employer] Patient Education 2022 [employer]. 01/17/2023 09:45:31 Colon Polyps Colon Polyps Colon [...] hard liquor (44 mL). General instructions Take ygxg-ued-nnfkfvr and prescription medicines only as told by [...] provider. Document Revised: 11/23/2020 Document Reviewed: 11/23/2020 [employer] Patient Education 2022 Smart Lunches Follow Up Care 09/14/2022 14:04:03 With:LITTLE WALSH, DHAVAL Poole, [facility] Address: [address] [place] [address]. [address] [place] [address] When: Unknown Comments:Office will call to schedule follow up appointment [facility]04-05-2023 Evaluation + Plan noteExtracted from: Title:Anesthesia Pre-Op Note - LILLY Author:Reyes Raza DO Date:11/21/22 Plan [place] Society of Anesthesiologists#(ASA) physical status classification: Class III. Anesthetic Preoperative Plan Anesthesia: General. . Anesthetic plan, risks, benefits, and alternatives discussed with the patient and/or family. Risks discussed: nausea, vomiting, headache, sore throat, aspiration, airway. Patient verbalized understanding. Informed consent was given. Consent was signed by the patient. Future Appointments Appointment Date:12/10/2022 02:40:00 PM Scheduled Provider:Inessa Grajeda CNP Location:[facility] Appointment Type:[facility] Follow Up Appointment Date:01/17/2023 09:50:00 AM Scheduled Provider: Location:[facility] Appointment Type:Surgery FT Appointment Date:01/30/2023 01:20:00 PM Scheduled Provider:SHERI JIMENES PA-C Location:[facility] [place] Appointment Type:URO Office Visit Future Scheduled Tests Laboratory* Clostridium difficile by PCR 05/09/22 * CBC w/ Auto Diff 05/09/22 * Comprehensive Metabolic Panel 05/09/22 [facility]04-05-2023 Hospital Discharge instructions Patient Education 11/21/2022 11:26:16 Foot Cryocuff Patient Instructions - FT (CUSTOM) 11/21/2022 11:26:16 Post Op Patient Instructions - FT (CUSTOM) 11/21/2022 08:48:42 Brown - Post Operative Instructions (Revised 07/29/19) (Custom) ([id number]) (Custom) [place], [place] Martin Arango DPM, FACFAS POST OPERATIVE [...] feel free to call the doctor at: [phone] or [phone] Arango paged. Patient signatureDate Dr.Nicholas Harsh DPM, FACFAS Date Revised: 09-26 [facility]03-13-2023 Hospital Discharge instructions [...] water added (diluted fruit juice). Eat bland, qmnc-th-fyvzma foods in small amounts as you are able. These foods include bananas, applesauce, rice, lean meats, toast, and crackers. Avoid drinking fluids that contain a lot of sugar or caffeine, such as energy drinks, sports drinks, and soda. Avoid alcohol. Avoid spicy or fatty foods. General instructions Take icpm-qfk-aqudqba and prescription medicines only as told by your health care provider. Rest at home while you recover. Drink enough fluid to keep your urine pale yellow. Breathe slowly and deeply when you feel nauseous. Avoid smelling things that have strong odors. Wash your hands often using soap and water. If soap and water are not available, use hand esthetician spa. Make sure that all people in your [...] recommendations for eating and drinking and take erji-xnn-xahsjov and prescription medicinesonly as told by your [...] 09/12/2005 Document Revised: 01/13/2019 Document Reviewed: 01/13/2019 [employer] Patient Education 2019 [employer]. Follow Up Care 10/02/2022 13:26:11 With:Inessa Grajeda CNP Address: When:1 to 2 weeks Comments:Following colonoscopy. [facility] 03-04-2023 Hospital Discharge [...] Treatment for this condition includes: Antibiotic medicine. Nkxt-wni-eqbtepe medicines to treat discomfort. Drinking enough water [...] Follow these instructions at home: Medicines Take bfxi-psy-zxaiasj and prescription medicines only as told by [...] 05/15/2006 Document Revised: 07/23/2019 Document Reviewed: 02/12/2019 [employer] Patient Education 2020 [employer]. 10/20/2022 12:23:03 Antibiotic Medicine, Adult Antibiotic Medicine, [...] 04/17/2005 Document Revised: 02/03/2019 Document Reviewed: 08/06/2017 [employer] Patient Education [employer]. Follow Up Care 10/20/2022 10:33:51 With:ROBERT GIRON Address: [address] [place] [id number] Business (1) When:10/23/2022 12:22:53 Comments:Call the [...] you develop any new or worsening symptoms. [facility]03-04-2023 Evaluation + Plan noteExtracted from: Title:ED Note Author:Santos Landry DO Date: Acute UTI (N39.0: Urinary tr act infection, site not specified) Orders: azithromycin, = 1 packet(s), Oral, As Directed, as directed on package labeling, X 5 day(s), # 6 tab(s), Refills(s) 0, Pharmacy: [id number], 163, cm, 10/20/22 10:48:00 EST, Height/Length [...] Appointments Appointment Date:10/23/2022 09:00:00 AM Scheduled Provider: [facility] Appoint[facility] Type:US Abdominal/Pelvis (FT) Appointment Date:10/29/2022 02:40:00 PM Scheduled Provider:Inessa Grajeda CNP Location:[facility] Appointment Type:BADH Follow Up Appointment Date:10/30/2022 03:00:00 PM Scheduled Provider:Elliott Solis MD [facility] Type:Cardiology Follow Up (FT) Appointment Date:11/07/2022 02:40:00 PM Scheduled Provider: Location:[facility] Appointment Type:Surgery FT Appointment Date:01/30/2023 01:20:00 PM Scheduled Provider:SHERI JIMENES PA-C Location:[facility] [place] Appointment Type:URO Office Visit Diagnostic Tests Pending * Urine Culture 10/20/22 Future Scheduled Tests Laboratory* Clostridium difficile by PCR 05/09/22 * CBC w/ Auto Diff 05/09/22 * Comprehensive Metabolic Panel 05/09/22 Radiology* US Abdomen Complete 10/23/22 [facility]02-24-2023 Hospital Discharge instructions [...] take to decrease my back pain? Take thuo-ikc-hhkbyog or prescription medicines only as told by [...] and in- person support groups through: The [place] [employer] Association: https://theacpa.org/Support-Groups The U.S. Pain [...] 08/19/2016 Document Revised: 07/18/2018 Document Reviewed: 04/13/2017 [employer] Patient Education 2020 [employer]. Follow Up Care 10/12/2022 12:55:29 With:ROBERT GIRON Address: [address] [place], [place] [address] [phone] Business (1) When:10/15/2022 14:38:47 Comments:Call the office [...] you develop any new or worsening symptoms. [facility]02-24-2023 Evaluation + Plan noteExtracted from: Title:ED Note Author:Maty NORRIS, Isaías Nye e:10/12/22 Chronic pain (G89.29: Other chronic pain) [...] Appointments Appointment Date:10/23/2022 09:00:00 AM Scheduled Provider: [facility] Appointment Type:US Abdominal/Pelvis (FT) Appointment Date:10/29/2022 02:40:00 PM Scheduled Provider:Inessa Grajeda CNP Location:[facility] Appointment Type:BADH Follow Up Appointment Date:10/30/2022 03:00:00 PM Scheduled Provider:Elloitt Solis MD [facility] Type:Cardiology Follow Up (FT) Appointment Date:11/07/2022 02:40:00 PM Scheduled Provider: Location:[facility] Appointment Type:Surgery FT Appointment Date:01/30/2023 01:20:00 PM Scheduled Provider:SHERI JIMENES PA-C Location:[facility] [place] Appointment Type:URO Office Visit Future Scheduled Tests Laboratory* Fecal WBC Lactoferrin 05/09/22 * Giardia lamblia, Direct Detection EIA 05/09/22 * O & P Exam, Routine 05/09/22 * Clostridium difficile by PCR 05/09/22 * Enteric Panel by PCR 05/09/22 * CBC w/ Auto Diff 05/09/22 * Comprehensive Metabolic Panel 05/09/22 Radiology* US Abdomen Complete 10/23/22 [facility]02-14-2023 Hospital Discharge instructions [...] water added (diluted fruit juice). Eat bland, dyei-kn-dvqcwa foods in small amounts as you are able. These foods include bananas, applesauce, rice, lean meats, toast, and crackers. Avoid fluids that contain a lot of sugar or caffeine, such as energy drinks, sports drinks, and soda. Avoid alcohol. Avoid spicy or fatty foods. General instructions Take ewyf-luz-pzuouze and prescription medicines only as told by your health care provider. Drink enough fluid to keep your urine pale yellow. Wash your hands often using soap and water. If soap and water are not available, use hand esthetician spa. Make sure that all people in your [...] eating and drinking to prevent dehydration. Take tbhs-wwm-qiuzvgn and prescription medicines only as told by [...] 08/05/2006 Document Revised: 11/27/2019 Document Reviewed: 01/13/2019 [employer] Patient Education 2020 [employer]. Follow Up Care 09/21/2022 11:43:03 With:Inessa Grajeda CNP Address: When:1 month [facility] 01-19-2023 Evaluation + Plan noteExtracted from: Title:ANES Post-operative Note Author:Kurt Oseguera MD Date:09/06/22 Plan Transfer/Discharge: Transfer/Discharge Discharge when meets criteria ( To home ). Extracted from: Title:ANES Pre-operative Note Author:Lillie Oseguera MD Date:09/06/22 Plan [place] Society of Anesthesiologists (ASA) physical status classification: Class III. Anesthetic Preoperative Plan: Anesthesia General, and Monitored anethesia care. Future Appointments Appointment Date:10/30/2022 03:00:00 PM Scheduled Provider:Elliott Solis MD [facility] Type:Cardiology Follow Up (FT) Appointment Date:01/30/2023 01:20:00 PM Scheduled Provider:SHERI JIMENES PA-C Location:[facility] Appointment Type:URO Office Visit Future Scheduled Tests Laboratory* Fecal WBC Lactoferrin 05/09/22 * Giardia lamblia, Direct Detection EIA 05/09/22 * O & P Exam, Routine 05/09/22 * Clostridium difficile by PCR 05/09/22 * Enteric Panel by PCR 05/09/22 * CBC w/ Auto Diff 05/09/22 * Comprehensive Metabolic Panel 05/09/22 [facility]01-19-2023 Hospital Discharge instructions Patient Education 09/06/2022 09:52:38 Colonoscopy, Care After Surgery Salam (CUSTOM) Colonoscopy Care After Surgery Please read the instructions outlined below and refer to this sheet in the next few weeks. These discharge instructions provide you with general information on caring [facility] Your doctor may also give [...] what activities are safe for you. Take lxom-unc-ymtuvph and prescription medicines only as told by [...] 02/03/2013 Document Revised: 01/27/2019 Document Reviewed: 01/05/2019 [employer] Patient Education 2020 [employer]. Follow Up Care 06/26/2022 12:25:13 With:Zulema FITCH Address: [address] [place] [address] Business (1) When: Unknown Comments:Office to call for follow-up appointment [facility]11-17-2022 Evaluation note* Encounter Date Diagnosis Assessment Notes Treatment Notes Treatment Clinical Notes Jun, Chronic obstructive pulmonary disease, unspecified (ICD-10 - J44.9) Jun, Tobacco abuse (ICD-10 - Z72.0) Cut back on smoking to goal of stopping, Jun, Diastolic dysfunction (ICD-10 - I51.9) [employer] Other 04-25-2022 Hospital Discharge instructions Patient Education [...] fried and sweet foods. General instructions Take qqtd-ssc-mmzorgc and prescription medicines only as told by [...] 06/01/2010 Document Revised: 11/26/2019 Document Reviewed: 08/21/2018 [employer] Patient Education 2019 [employer]. Follow Up Care 09/04/2021 10:41:00 With:LILI WALSH, Donaldo Moreira, URL Address: [facility] [address], [place] [phone] When:04/12/2022 [facility] [place] 11-09-2021 NoteHNO ID: [id number] Author: Crystal Rodriguez PA-C Service: ? Author Type: Physician Auger Press Operator Type: Progress Notes Filed: 06/27/2021 4:56 PM Note Text: [facility] NOTE CC: Rock Herrera is a [...] bipolar - COPD (chronic obstructive pulmonary disease) ([facility]) - Depression - Ana Laura-Danlos disease [...] Derived Hives - Atomoxetine (more content not included)...[facility]09-01-2021 NoteHNO ID: [id number] Author: RT James(R) Service: ? Author Type: Card Folder Type: Progress Notes Filed: 04/19/2021 1:56 PM [...] BY: RT James(R) April 19, 2021 1:55 [facility]09-01-2021 NoteHNO ID: [id number] Author: Randi Farrell, DO Service: ? Author [...] She will follow-up in a month if [facility]2021 NoteHNO ID: [id number] Author: RT James(R) Service: ? Author Type: Card Folder Type: Progress Notes Filed: 04/19/2021 1:09 PM [...] BY: RT James(R) April 19, 2021 1:09 [facility] note Future Appointments Appointment Date:12/11/2021 11:45:00 AM Scheduled Provider:Donaldo PEARSON MD Location:[facility] Appointment Type:URO Office Visit Appointment Date:01/11/2022 02:15:00 PM Scheduled Provider:Zulema FITCH MD Location:[facility] App[facility]ment [facility] Future Appointments Appointment Date:01/11/2022 02:15:00 PM Scheduled Provider:Zulema FITCH MD Location:[facility] Appointment Type:BAD Follow Up Appointment Date:04/09/2022 01:45:00 PM Scheduled Provider:Donaldo PEARSON MD Location:[facility] Appointment Type:URO Office Visit [facility] evaluation + Plan note Future Appointments Appointment Date:02/01/2022 08:15:00 AM Scheduled Provider: Location:[facility] Appointment Type:Surgery PAT COVID Testing Appointment Date:02/01/2022 09:00:00 AM Scheduled Provider: Location:[facility] Appointment Type:Surgery FT Appointment Date:02/08/2022 09:40:00 AM Scheduled Provider: Location:[facility] Appointment Type:Surgery FT Appointment Date:04/09/2022 01:45:00 PM Scheduled Provider:Donaldo PEARSON MD Location:[facility] Appointment Type:URO Office Visit [facility] Evaluation + Plan note Future Appointments Appointment Date:02/01/2022 08:15:00 AM Scheduled Provider: Location:[facility] Appointment Type:Surgery PAT COVID Testing Appointment Date:02/01/2022 09:00:00 AM Scheduled Provider: Location:[facility] Appointment Type:Surgery FT Appointment Date:02/08/2022 09:40:00 AM Scheduled [facility] Type:Surgery FT Appointment Date:03/06/2022 10:30:00 AM Scheduled Provider:Cady CALIX CNP [facility] Type:Cardiology Follow Up (FT) Appointment Date:04/09/2022 01:45:00 PM Scheduled Provider:Donaldo PEARSON MD Location:[facility] App[facility]ment [facility] Future Appointments Appointment Date:02/08/2022 09:30:00 AM Scheduled Provider: Location:[facility] Appointment Type:Surgery FT Appointment Date:03/06/2022 10:30:00 AM Scheduled Provider:Cady CALIX CNP [facility] Type:Cardiology Follow Up (FT) Appointment Date:04/09/2022 01:45:00 PM Scheduled Provider:Donaldo PEARSON MD Location:[facility] Appointment Type:URO Office Visit [facility] + Plan note Future Appointments Appointment Date:03/06/2022 10:30:00 AM Scheduled Provider:Cady CALIX CNP [facility] Type:Cardiology Follow Up (FT) Appointment Date:03/22/2022 08:15:00 AM Scheduled Provider: Location:[facility] Appointment Type:Surgery PAT COVID Testing Appointment Date:03/29/2022 08:40:00 AM Scheduled Provider: Location:[facility] Appointment Type:Surgery FT Appointment Date:04/09/2022 01:45:00 PM Scheduled Provider:Donaldo PEARSON MD Location:[facility] Appointment [facility] Future Appointments Appointment Date:03/20/2022 01:00:00 PM Scheduled Provider: [facility] Type:Cardiology Nurse Visit (FT) Appointment Date:03/22/2022 08:15:00 AM Scheduled Provider: Location:[facility] Appointment Type:Surgery PAT COVID Testing Appointment Date:03/29/2022 08:40:00 AM Scheduled Provider: Location:[facility] Appointment Type:Surgery FT Appointment Date:04/09/2022 01:45:00 PM Scheduled Provider:Donaldo PEARSON MD Location:[facility] Appointment Type:URO Office Visit Appointment Date:09/06/2022 01:15:00 PM Scheduled Provider:Elliott Solis MD [facility] App[facility]ment Type:[facility]iology [facility] (FT) [facility] Future Appointments Appointment Date:03/22/2022 08:15:00 AM Scheduled Provider: Location:[facility] Appointment Type:Surgery PAT COVID Testing Appointment Date:03/29/2022 08:40:00 AM Scheduled Provider: Location:[facility] Appointment Type:Surgery FT Appointment Date:04/09/2022 01:45:00 PM Scheduled Provider:Donaldo [facility]SON MD [facility] Office Visit Appointment Date:09/06/2022 01:15:00 PM Scheduled Provider:Elliott Solis MD [facility] Type:[facility]iology Follow Up (FT) [facility] Future Appointments Appointment Date:03/29/2022 08:40:00 AM Scheduled Provider: Location:[facility] Appointment Type:Surgery FT Appointment Date:04/09/2022 01:45:00 PM Scheduled Provider:Donaldo PEARSON MD Location:[facility] Appointment Type:URO Office Visit Appointment Date:09/06/2022 01:15:00 PM Scheduled Provider:Elliott Solis MD Location[facility] Appointment Type:Cardiology Follow Up (FT) [facility] Future Appointments Appointment Date:05/09/2022 01:40:00 PM Scheduled Provider:Inessa Grajeda CNP Location:[facility] Appointment Type:BADH Follow Up Appointment Date:05/15/2022 01:30:00 PM Scheduled Provider:Cady CALIX CNP Location[facility] Appointment Type:Cardiology ED Follow Up (FT) Appointment Date:05/16/2022 01:20:00 PM Scheduled Provider:SHERI JIMENES PA-C Location:[facility] Appointment Type:URO Office Visit Appointment Date:09/06/2022 01:15:00 PM Scheduled Provider:Elliott Solis MD [facility] Appointment Type:Cardiology Follow Up (FT) [facility] Future Appointments Appointment Date:06/11/2022 11:00:00 AM Scheduled Provider: Location:[facility] Appointment Type:Surgery PAT COVID Testing Appointment Date:06/18/2022 09:45:00 AM Scheduled Provider: Location:[facility] Appointment Type:Surgery FT Appointment Date:09/06/2022 01:15:00 PM Scheduled Provider:Elliott Solis MD [facility] Type:Cardiology Follow Up (FT) Appointment Date:10/30/2022 03:00:00 PM Scheduled Provider:Elliott Solis MD [facility] Type:Cardiology Follow Up (FT) Future Scheduled Tests Laboratory* Fecal WBC Lactoferrin 05/09/22 * Giardia lamblia, Direct Detection EIA 05/09/22 * O & P Exam, Routine 05/09/22 * Clostridium difficile by PCR 05/09/22 * Enteric Panel by PCR 05/09/22 * CBC w/ Auto Diff 05/09/22 * Comprehensive Metabolic [facility]09[facility]22 [facility] Future App[facility]ments Appointment Date:09/06/2022 01:15:00 PM Scheduled Provider:Elliott Solis MD [facility] Type:Cardiology Follow Up (FT) Appointment Date:10/30/2022 03:00:00 PM Scheduled Provider:Elliott Solis MD [facility] Type:Cardiology Follow Up (FT) Appointment Date:01/30/2023 01:20:00 PM Scheduled Provider:SHERI JIMENES PA-C Location:[facility] Appointment Type:URO Office Visit Future Scheduled Tests Laboratory* Fecal WBC Lactoferrin 05/09/22 * Giardia lamblia, Direct Detection EIA 05/09/22 * O & P Exam, Routine 05/09/22 * Clostridium difficile by PCR 05/09/22 * Enteric Panel by PCR 05/09/22 * CBC w/ Auto Diff 05/09/22 * Comprehensive Metabolic Panel 05/09/22 [facility] Future Appointments Appointment Date:10/30/2022 03:00:00 PM Scheduled Provider:Elliott Solis MD [facility] Type:Cardiology Follow Up (FT) Appointment Date:01/30/2023 01:20:00 PM Scheduled Provider:SHERI JIMENES PA-C Location:[facility] Appointment Type:URO Office Visit Future Scheduled Tests Laboratory* Fecal WBC Lactoferrin 05/09/22 * Giardia lamblia, Direct Detection EIA 05/09/22 * O & P Exam, Routine 05/09/22 * Clostridium difficile by PCR 05/09/22 * Enteric Panel by PCR 05/09/22 * CBC w/ Auto Diff 05/09/22 * Comprehensive Metabolic Panel 05/09/22 [facility] Future Appointments Appointment Date:10/23/2022 09:00:00 AM Scheduled Provider: [facility] Type:US Abdominal/Pelvis (FT) Appointment Date:10/29/2022 02:40:00 PM Scheduled Provider:Inessa Grajeda CNP Location:[facility] Appointment Type:[facility] Follow Up Appointment Date:10/30/2022 03:00:00 PM Scheduled Provider:Elliott Solis MD [facility] Type:Cardiology Follow Up (FT) Appointment Date:10/31/2022 03:15:00 PM Scheduled Provider: Location:[facility] Appointment Type:Surgery PAT COVID Testing Appointment Date:11/07/2022 02:40:00 PM Scheduled Provider: Location:[facility] Appointment Type:Surgery FT Appointment Date:01/30/2023 01:20:00 PM Scheduled Provider:SHERI JIMENES PA-C Location:[facility] Appointment Type:URO Office Visit Future Scheduled Tests Laboratory* Fecal WBC Lactoferrin 05/09/22 * Giardia lamblia, Direct Detection EIA 05/09/22 * O & P Exam, Routine 05/09/22 * Clostridium difficile by PCR 05/09/22 * Enteric Panel by PCR 05/09/22 * CBC w/ Auto Diff 05/09/22 * Comprehensive Metabolic Panel 05/09/22 Radiology* US Abdomen Complete 10/23/22 [facility] Evaluation + Plan note Future Appointments Appointment Date:10/30/2022 08:00:00 AM Scheduled Provider: [facility] Appoint[facility] Type:US Abdominal/Pelvis (FT) Appointment Date:10/30/2022 03:00:00 PM Scheduled Provider:Elliott Solis MD [facility] Type:Cardiology Follow Up (FT) Appointment Date:11/07/2022 02:40:00 PM Scheduled Provider: Location:[facility] Appointment Type:Surgery FT Appointment Date:12/10/2022 02:40:00 PM Scheduled Provider:Inessa Grajeda CNP Location:[facility] Appointment Type:BAD Follow Up Appointment Date:01/30/2023 01:20:00 PM Scheduled Provider:SHERI JIMENES PA-C Location:[facility] Appointment Type:URO Office Visit Future Scheduled Tests Laboratory* Clostridium difficile by PCR 05/09/22 * CBC w/ Auto Diff 05/09/22 * Comprehensive Metabolic Panel 05/09/22 Radiology* US Abdomen Complete 10/30/22 [facility] Evaluation + Plan note Future Appointments Appointment Date:11/07/2022 02:40:00 PM Scheduled Provider: Location:[facility] Appointment Type:Surgery FT Appointment Date:11/09/2022 10:00:00 AM Scheduled Provider: [facility] Appoint[facility] Type:US Abdominal/Pelvis (FT) Appointment Date:12/10/2022 02:40:00 PM Scheduled Provider:Inessa Grajeda CNP Location:[facility] Appointment Type:[facility] Follow Up Appointment Date:01/30/2023 01:20:00 PM Scheduled Provider:SHERI JIMENES PA-C Location:[facility] Appointment Type:URO Office Visit Future Scheduled Tests Laboratory* Clostridium difficile by PCR 05/09/22 * CBC w/ Auto Diff 05/09/22 * Comprehensive Metabolic Panel 05/09/22 Radiology* US Abdomen Complete 11/09/22 [facility] Future Appointments Appointment Date:12/10/2022 02:40:00 PM Scheduled Provider:Inessa Grajeda CNP Location:[facility] Appointment Type:BAD Follow Up Appointment Date:01/17/2023 09:50:00 AM Scheduled Provider: Location:[facility] Appointment Type:Surgery FT Appointment Date:01/30/2023 01:20:00 PM Scheduled Provider:SHERI JIMENES PA-C Location:[facility] Appointment Type:URO Office Visit Future Scheduled Tests Laboratory* Clostridium difficile by PCR 05/09/22 * CBC w/ Auto Diff 05/09/22 * Comprehensive Metabolic Panel 05/09/22 [facility] Future Appointments Appointment Date:01/30/2023 01:20:00 PM Scheduled Provider:SHERI JIMENES PA-C Location:[facility] Appointment Type:URO Office Visit Appointment Date:02/06/2023 02:00:00 PM Scheduled Provider:Inessa Grajeda CNP Location:[facility] Appointment Type:[facility] Follow Up Future Scheduled Tests Laboratory* Clostridium difficile by PCR 05/09/22 * CBC w/ Auto Diff 05/09/22 * CBC w/ Auto Diff 12/25/22 * Comprehensive Metabolic Panel 05/09/22 * Comprehensive Metabolic Panel 12/25/22 [facility] Future Appointments Appointment Date:06/14/2023 11:00:00 AM Scheduled Provider: [facility] Type:CV Holter/Event (FT) Appointment Date:07/25/2023 11:45:00 AM Scheduled Provider:Elliott SOLIS MD [facility] Type:Cardiology Follow Up (FT) Future Scheduled Tests Laboratory* Pancreatic Elastase, Fecal 01/29/23 * Fecal WBC Lactoferrin 01/29/23 * Giardia lamblia, Direct Detection EIA 01/29/23 * O & P Exam, Routine 01/29/23 * Clostridium Difficile PCR 01/29/23 * Enteric Panel by PCR 01/29/23 * CBC w/ Auto Diff 12/25/22 * Comprehensive Metabolic Panel 12/25/22 Radiology* Echo Transthoracic Complete 05/20/23 [facility] Future Appointments Appointment Date:07/25/2023 11:45:00 AM Scheduled Provider:Elliott SOLIS MD [facility] Type:Cardiology Follow Up (FT) Appointment Date:07/30/2023 02:00:00 PM Scheduled Provider:SHERI JIMENES PA-C Location:[facility] Appointment Type:URO Office Visit Future Scheduled Tests Laboratory* Pancreatic Elastase, Fecal 01/29/23 * Fecal WBC Lactoferrin 01/29/23 * Giardia lamblia, Direct Detection EIA 01/29/23 * O & P Exam, Routine 01/29/23 * Clostridium Difficile PCR 01/29/23 * Enteric Panel by PCR 01/29/23 * CBC w/ Auto Diff 12/25/22 * Comprehensive Metabolic Panel 12/25/22 Radiology* Echo Transthoracic Complete 05/20/23 [facility] Future Appointments Appointment Date:07/30/2023 02:00:00 PM Scheduled Provider:SHERI JIMENES PA-C Location:[facility] Appointment Type:URO Office Visit Future Scheduled Tests Laboratory* Pancreatic Elastase, Fecal 01/29/23 * Fecal WBC Lactoferrin 01/29/23 * Giardia lamblia, Direct Detection EIA 01/29/23 * O & P Exam, Routine 01/29/23 * Clostridium Difficile PCR 01/29/23 * Enteric Panel by PCR 01/29/23 * CBC w/ Auto Diff 12/25/22 * Comprehensive Metabolic Panel 12/25/22 Radiology* Echo Transthoracic Complete 05/20/23 [facility] Future Appointments Appointment Date:12/31/2023 01:00:00 PM Scheduled Provider:SHERI JIMENES PA-C Location:[facility] Appointment Type:URO Office Visit Future Scheduled Tests Laboratory* Pancreatic Elastase, Fecal 01/29/23 * Fecal WBC Lactoferrin 01/29/23 * Giardia lamblia, Direct Detection EIA 01/29/23 * O & P Exam, Routine 01/29/23 * Clostridium Difficile PCR 01/29/23 * Enteric Panel by PCR 01/29/23 * CBC w/ Auto Diff 12/25/22 * Comprehensive Metabolic Panel 12/25/22 Radiology* Echo Transthoracic Complete 05/20/23 [facility] evaluation + Plan note Future Appointments Appointment Date:01/01/2024 11:00:00 AM Scheduled Provider:Cady Alva PA-C Location:[facility] Appointment Type:Pain Management - Follow Up (FT) Appointment Date:01/30/2024 02:15:00 PM Scheduled Provider:En Carmen PA-C [facility] Type:Cardiology Follow Up (FT) Appointment Date:01/05/2025 01:00:00 PM Scheduled Provider:SHERI JIMENES PA-C Location:[facility] Appointment Type:URO Office Visit Future Scheduled Tests Laboratory* Pancreatic Elastase, Fecal 01/29/23 * Fecal WBC Lactoferrin 01/29/23 * Giardia lamblia, Direct Detection EIA 01/29/23 * O & P Exam, Routine 01/29/23 * Clostridium Difficile PCR 01/29/23 * Enteric Panel by PCR 01/29/23 Radiology* Echo Transthoracic Complete 05/20/23 [facility] evaluation + Plan note Future Appointments Appointment Date:03/05/2024 03:30:00 PM Scheduled Provider:Andrew Eid DO [facility]oint[facility] Type:Pain Management - Follow Up (FT) Appointment Date:07/30/2024 01:45:00 PM Scheduled Provider:Kehinde Davalos MD [facility] Type:Cardiology Follow Up (FT) Appointment Date:01/05/2025 01:00:00 PM Scheduled Provider:SHERI JIMENES PA-C Location:[facility] Appointment Type:URO Office Visit Future Scheduled Tests Radiology* Echo Transthoracic Complete 05/20/23 [facility] Future Appointments Appointment Date:08/26/2024 08:15:00 AM Scheduled Provider:Cady Alva PA-C [facility] Appoint[facility] Type:Pain Management - Follow Up (FT) Appointment Date:01/05/2025 01:00:00 PM Scheduled Provider:SHERI JIMENES PA-C Location:[facility] Appointment Type:URO Office Visit [facility] Evaluation + Plan note Future Appointments Appointment Date:01/21/2025 11:40:00 AM Scheduled Provider:SHERI JIMENES PA-C Location:[facility] Appointment Type:URO Office Visit [facility] evaluation + Plan note Future Appointments Appointment Date:03/19/2025 02:00:00 PM Scheduled Provider:En Carmen PA-C [facility] [place] Appointment Type:Cardiology Follow Up (FT) [facility] evaluation noteNo assessment information [facility] Work Phone: Evaluation noteNo InformationN[facility]ameron [facility] Other Evaluation note* Diagnosis Chronic bilateral low back pain with bilateral sciatica Diabetic peripheral neuropathy (CMS/HCC) Type II or unspecified type diabetes mellitus with neurological manifestations, not stated as uncontrolled Lumbar radiculopathy Thoracic or lumbosacral neuritis or radiculitis, unspecified [facility] Diagnosis Hav (hallux abducto valgus), right- Primary Plantar fasciitis Plantar fascial fibromatosis Diabetes 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 polyneuropathy, with long-term current use of insulin (CMS/HCC) Contracture of right ankle Bone spur of right foot documented in this encounter [facility]* Diagnosis Chronic bilateral low back pain with bilateral sciatica Diabetic peripheral neuropathy (CMS/HCC) Type II or unspecified type diabetes mellitus with neurological manifestations, not stated as uncontrolled Lumbar radiculopathy Thoracic or lumbosacral neuritis or radiculitis, unspecified [facility]* Diagnosis Pain Generalized pain [facility] Diagnosis Right elbow pain Pain in joint, upper arm [facility] Diagnosis Xerosis cutis- Primary Other specified disease of sebaceous glands documented in this encounter [facility] HealthcareEvaluation note* Diagnosis Acquired deformity of right toe- Primary Diabetes 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 polyneuropathy, with long-term current use of insulin (CMS/HCC) documented in this encounter [facility] HealthcareEvaluation note* Diagnosis Well woman exam with routine gynecological exam Routine gynecological examination H/O: hysterectomy Acquired absence of both cervix and uterus Osteoporosis, post-menopausal ([facility]) Senile osteoporosis documented [facility] encounter [facility]* Diagnosis Toe pain, left- Primary [...] polyneuropathy, with long-term current use of insulin ([facility]) documented [facility]* Diagnosis Capsulitis of metatarsophalangeal (MTP) joint of right foot- Primary Paronychia, toe, right Paronychia of toe of left foot Toe pain, left Pain in soft tissues of limb Toe pain, right Pain in soft tissues of limb Diabetes 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 polyneuropathy, with long-term current use of insulin ([facility]) documented [facility] encounter [facility]* [...] disorder (ADHD), predominantly inattentive type (CMS/HCC)- Primary Intractable chronic migraine without aura and without status migrainosus (CMS/HCC) documented [facility] encounter [facility]* Diagnosis Diabetes mellitus without complication (CMS-HCC)- Primary Type II or unspecified type diabetes mellitus without mention of complication, not stated as uncontrolled [facility] Diagnosis Left knee pain, unspecified chronicity- Primary documented in [facility] encounter [facility]* Diagnosis Left knee pain, unspecified chronicity- Primary documented in [facility] encounter [facility]* Diagnosis Left knee pain, unspecified chronicity- Primary documented [facility]* Diagnosis CELINE (obstructive sleep apnea)- Primary Obstructive sleep apnea (adult) (pediatric) Chronic migraine without aura without status migrainosus, not intractable (CMS/HCC) Cognitive decline Lumbar radiculopathy Thoracic or lumbosacral neuritis or radiculitis, unspecified [facility]* Diagnosis Anxiety- Primary Anxiety state, unspecified Diabetes mellitus without complication ([facility]) Type II or unspecified type diabetes mellitus without mention of complication, not stated as uncontrolled Essential hypertension Unspecified essential hypertension Mixed hyperlipidemia Medication management Chronic obstructive pulmonary disease, unspecified COPD type ([facility]) Abnormality of gait and mobility Current smoker [facility] Diagnosis Left knee pain, unspecified chronicity- Primary Arthritis of left knee Chronic pain of left knee [facility]* Diagnosis Type 2 diabetes mellitus with hyperglycemia, without long-term current use of insulin ([facility]) [facility] Diagnosis Diabetes mellitus without complication ([facility])- Primary Type II or unspecified type diabetes mellitus without mention of complication, not stated as uncontrolled [facility]* Diagnosis Left knee pain, unspecified chronicity- Primary Arthritis of left knee Chronic pain of left knee [facility]* Diagnosis Pain in left leg- Primary documented in [facility] encounter [facility]* Diagnosis Onset Date Resolution Status Admit Date COPD (chronic obstructive pulmonary disease) acute September 2:50pm Diastolic dysfunction acute Feb ruary 2024 2:50pm Nicotine dependence, cigarettes, uncomplicated acute Februa ry 2024 2:50pm [facility] Work Phone: Evaluation note* Diagnosis Type 2 diabetes mellitus with hyperglycemia, without long-term current use of insulin ([facility]) documented in this encounter [facility]* Diagnosis Lumbar radiculopathy- Primary Thoracic or lumbosacral neuritis or radiculitis, unspecified PHN (postherpetic neuralgia) ([facility]) Herpes zoster with other nervous system complications Diabetic peripheral neuropathy ([facility]) Type II or unspecified type diabetes mellitus with neurological manifestations, not stated as uncontrolled [facility]* Diagnosis Peripheral arterial disease ([facility])- Primary Unspecified peripheral vascular disease Anxiety Anxiety state, unspecified Medication monitoring encounter Encounter for therapeutic drug monitoring Contusion of right hip, initial encounter Candidal intertrigo Candidiasis of skin and nails Overweight [facility]* Diagnosis Intractable chronic migraine without aura and without status migrainosus ([facility]/HCC)- Primary Acquired deformity of right toe- Primary Diabetes 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 polyneuropathy, with long-term current use of insulin ([facility]) [facility] encounter [facility] Diagnosis Intractable chronic migraine without aura and without status migrainosus (CMS/HCC)- Primary Acquired deformity of right toe- Primary Diabetes 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 polyneuropathy, with long-term current use of insulin ([facility]) documented in [facility] encounter [facility]* Diagnosis Acquired deformity of right toe- Primary Diabetes 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 polyneuropathy, with long-term current use of insulin ([facility]) Downey neuroma, right documented in this encounter [facility]* Diagnosis Downey neuroma, right- Primary Diabetes 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 polyneuropathy, with long-term current use of insulin ([facility]) Acquired deformity of right toe Paronychia, toe, right documented in this encounter [facility]* Diagnosis Cervical spondylosis without myelopathy- Primary [facility] Diagnosis Anxiety- Primary Anxiety state, unspecified Diabetes mellitus without complication ([facility]) Type II or unspecified type diabetes mellitus without mention of complication, not stated as uncontrolled Enthesopathy of elbow Unspecified enthesopathy of elbow documented [facility] Diagnosis Downey neuroma, right- Primary Acquired deformity of right toe Paronychia, toe, right Diabetes 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 polyneuropathy, with long-term current use of insulin ([facility]) documented in [facility] encounter [facility]* Diagnosis Anxiety Anxiety state, unspecified documented [facility] encounter [facility]* Diagnosis Downey neuroma, right- Primary Downey neuroma, right- Primary Acquired deformity of right toe Paronychia, toe, right Diabetes 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 polyneuropathy, with long-term current use of insulin ([facility]/H[facility]) documented in [facility] encounter [facility]* Diagnosis Downey neuroma, right- Primary Downey neuroma, right- Primary Acquired deformity of right toe Paronychia, toe, right Diabetes 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 polyneuropathy, with long-term current use of insulin ([facility]) documented in this encounter [facility]* Diagnosis Mild ankle sprain, right, initial encounter- Primary Paronychia, toe, right Downey neuroma, right documented in this encounter [facility]* Diagnosis Downey neuroma, right documented in this encounter [facility]* Diagnosis Contusion of right shoulder, subsequent encounter- Primary Right shoulder pain, unspecified chronicity documented in this encounter [facility]* Diagnosis Downey neuroma, right Mild ankle sprain, right, initial encounter- Primary Paronychia, toe, right Diabetes 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 polyneuropathy, with long-term current use of insulin (HCC) documented in this encounter [facility]* Diagnosis Mild ankle sprain, right, initial encounter- Primary Paronychia, toe, right Diabetes 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 polyneuropathy, with long-term current use of insulin ([facility]) documented in this encounter [facility]* Diagnosis Contusion of right shoulder, subsequent encounter- Primary Right shoulder pain, unspecified chronicity documented in this encounter [facility]* Diagnosis Mild ankle sprain, right, initial encounter- Primary documented in this encounter [facility]* Diagnosis Mild ankle sprain, right, initial encounter- Primary documented in this encounter [facility]* Diagnosis Mild ankle sprain, right, initial encounter- Primary documented in this encounter [facility]* Diagnosis Diabetes mellitus without complication ([facility]) Type II or unspecified type diabetes mellitus without mention of complication, not stated as uncontrolled [facility] Diagnosis Chest wall pain- Primary Painful respiration Complex tear of medial meniscus of left knee, sequela Polyp of colon, unspecified part of colon, unspecified type Diabetes mellitus without complication ([facility]) Type II or unspecified type diabetes mellitus without mention of complication, not stated as uncontrolled [facility] Diagnosis Intractable chronic migraine without aura and without status migrainosus- Primary Primary insomnia Persistent disorder of initiating or maintaining sleep Mild ankle sprain, right, initial encounter- Primary Paronychia, toe, right Diabetes 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 polyneuropathy, with long-term current use of insulin (HCC) [facility] Diagnosis Mild ankle sprain, right, initial encounter- Primary Diabetes 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 polyneuropathy, with long-term current use of insulin (HCC) Contracture of right ankle [facility]* Diagnosis Incontinence of feces with fecal urgency- Primary Altered bowel habits Polyp of colon, unspecified part of colon, unspecified type [facility] Diagnosis Arthritis of left knee- Primary Acute pain of left knee [facility]* Diagnosis Complex tear of medial meniscus of left knee, sequela documented [facility]* Diagnosis Lumbosacral radiculopathy at L5- Primary Osteoarthritis, unspecified osteoarthritis type, unspecified site Diabetes mellitus without complication ([facility]) Type II or unspecified type diabetes mellitus without mention of complication, not stated as uncontrolled Chronic obstructive pulmonary disease, unspecified COPD type ([facility]) Anxiety Anxiety state, unspecified documented [facility]* Diagnosis Complex tear of medial meniscus of left knee, sequela documented [facility] this [facility]* Diagnosis Complex tear of medial meniscus of left knee, sequela documented in this [facility]* Diagnosis Complex tear of medial meniscus of left knee, sequela documented [facility]* Diagnosis Type 2 diabetes mellitus with diabetic mononeuropathy, without long-term current use of insulin ([facility]) [facility] Narrative - Reported* Type [...] removed from breasts 2010 Surgical History Lithotripsy 1996 Surgical History Ingrown toenail x [address]/MRI Surgical History broken right foot toe Surgical History rt knee surgery arthroscopy Hospitalization History Hypokalemia, nausea, vom iting Hospitalization History see above surgical histo ry [employer] Other History general Narrative - Reported* Type [...] vom iting Hospitalization History see above surgical [facility] [employer] Other Hospital course Narrative No data available for this section [facility] No data available for this section [facility]ructionsNot on filedocumented in [...] note No data available for this section [facility] for referral (narrative)* Diagnostic Procedure Only (Routine) - Closed Specialty Diagnoses / Procedures Referred By Contac t Referred To Contact XR IMAGING Diagnoses Pain Procedures XR SHOULDER GENERAL 3V OR MORE AP/TRUE AP/OTHER RT X-RAY SHOULDER COMPLET MIN 2 VIEWS Randi Farrell DO [address] [place] [address] [place] [address] Referral ID Status Reason Start Date Expiration Date V isits Requested Visits Authorized Closed Auto-Generate d Referral 04/17/2021 05/17/2022 1 1 [facility] for referral (narrative)* Diagnostic Procedure Only (Routine) - Closed Specialty Diagnoses / Procedures Referred By Contac t Referred To Contact XR IMAGING Diagnoses Right elbow pain Procedures XR ELBOW SPECIAL VIEWS AP/LAT/OTHER RT X-RAY ELBOW MINIMUM 3 VIEWS Randi Farrell DO [address] [place] [address] [place] [address] Referral ID Status Reason Start Date Expiration Date V isits Requested Visits Authorized [id number] Closed Auto-Generate d Referral 04/19/2021 05/19/2022 1 1 [facility] for referral (narrative)* Consultation (Routine) - Pending Review Specialty Diagnoses / Procedures Referred By Contac t Referred To Contact Pain Medicine Diagnoses Primary osteoarthritis of left knee Procedures ID OFFICE/OUTPATIENT [facility] 60 MINUTES Pastora Alcantara DO [address] [facility] [address] [place] [address] Candy Turner MD [address] [facility], [address] [place] [id number] Referral ID Status Reason Start Date Expiration Date Visits Requested Visits Authorized [id number] Pending Review Consult and Treat 04/21/2024 10/18/2024 1 1 [facility] Consultation (Routine) - Authorized Specialty Diagnoses / Procedures Referred By Contac t Referred To Contact Pain Medicine Diagnoses Primary osteoarthritis of left knee Procedures ID OFFICE/OUTPATIENT [facility] 60 MINUTES Pastora Alcantara DO [address] [facility] [address] [place] [address] Avi Maharaj MD [address] [place] [address] Referral ID Status Reason Start Date Expiration Date Visits Requested Visits Authorized [id number] Authorized Consult and Treat 05/05/2024 11/01/2024 1 1 [facility]ative[facility]No reason for referral [facility] Phone: Reason for visit Narrative* Diagnostic Procedure Only (Routine) - Closed Specialty Diagnoses / Procedures Referred By Contac t Referred To Contact XR IMAGING Diagnoses Pain Procedures XR SHOULDER GENERAL 3V OR MORE AP/TRUE AP/OTHER RT X-RAY SHOULDER COMPLET MIN 2 VIEWS Randi Farrell, DO [address] [place] [address] [place] [address] Referral ID Status Reason Start Date Expiration Date V isits Requested Visits Authorized Closed Auto-Generate d Referral 04/17/2021 05/17/2022 1 1 [facility] for visit Narrative* Diagnostic Procedure Only (Routine) - Closed Specialty Diagnoses / Procedures Referred By Contac t Referred To Contact XR IMAGING Diagnoses Right elbow pain Procedures XR ELBOW SPECIAL VIEWS AP/LAT/OTHER RT X-RAY ELBOW MINIMUM 3 VIEWS Randi Farrell, DO [address] [place] [address] [place] [address] Referral ID Status Reason Start Date Expiration Date V isits Requested Visits Authorized Closed Auto-Generate d Referral 04/19/2021 05/19/2022 1 1 [facility] for visit Narrative* Rehabilitation - Outpatient (Routine) - Authorized Specialty Diagnoses / Procedures Referred By Contac t Referred To Contact Physical Therapy Diagnoses Pain in left knee Procedures ID PHYSICAL THERAPY EVALUATION LOW COMPLEX 20 MINS ID OFFICE/OUTPATIENT [facility] 60 MINUTES Josseline Abad MD [address] [place] [address] Phone: tel: fax: [facility] [address] [facility] [address] [place] [address] Phone: tel: fax: Referral ID Status Reason Start Date Expiration Date V isits Requested Visits Authorized [id number] Authorized 08/24/2024 02/20/2025 30 30 [facility] N[facility]ative* Rehabilitation - Outpatient (Routine) - Authorized Specialty Diagnoses / Procedures Referred By Contac t Referred To Contact Physical Therapy Diagnoses Pain in left knee Procedures ID PHYSICAL THERAPY EVALUATION LOW COMPLEX 20 MINS ID OFFICE/OUTPATIENT [facility] 60 MINUTES Josseline Abad MD [address] [place] [address] Phone: tel: fax: Gricelda Hammond, PT Referral ID Status Reason Start Date Expiration Date Visits Requested Visits Authorized [id number] Authorized Consult and Treat 08/24/2024 08/18/2025 30 30 [facility] N[facility]ative* Rehabilitation - Outpatient (Routine) - Authorized Specialty Diagnoses / Procedures Referred By Contac t Referred To Contact Physical Therapy Diagnoses Contusion of right shoulder, subsequent encounter Procedures ID PHYSICAL THERAPY EVALUATION LOW COMPLEX 20 MINS ID OFFICE/OUTPATIENT [facility] 60 MINUTES Robert Giron MD [address], [facility] [place] [address] Phone: tel: fax: [facility] [address] [facility] [address] [place] [address] Phone: tel: fax: Referral ID Status Reason Start Date Expiration Date V isits Requested Visits Authorized [id number] Authorized 12/29/2024 06/27/2025 30 30 [facility] N[facility]ative* Rehabilitation - Outpatient (Routine) - Authorized Specialty Diagnoses / Procedures Referred By Contac t Referred To Contact Physical Therapy Diagnoses Contusion of right shoulder, subsequent encounter Procedures ID PHYSICAL THERAPY EVALUATION LOW COMPLEX 20 MINS ID OFFICE/OUTPATIENT [facility] 60 MINUTES Robert Giron MD [address] [facility], [facility] [place] [address] Phone: tel: fax: [facility] [address] [address] Phone: tel: fax: Referral ID Status Reason Start Date Expiration Date V isits Requested Visits Authorized [id number] Authorized 12/29/2024 08/18/2025 30 30 [facility] Narrative* Rehabilitation - Outpatient (Routine) - Authorized Specialty Diagnoses / Procedures Referred By Contac t Referred To Contact Physical Therapy Diagnoses Mild ankle sprain, right, initial encounter Procedures ID OFFICE/OUTPATIENT [facility] 60 MINUTES Martin Arango DPM [address] [address] Phone: tel: fax: Gricelda Hammond PT Referral ID Status Reason Start Date Expiration Date Visits Requested Visits Authorized [id number] Authorized Specialty Services Required 02/11/2025 08/03/2025 24 24 [facility] Rehabilitation - Outpatient (Routine) - Authorized Specialty Diagnoses / Procedures Referred By Contac t Referred To Contact Physical Therapy Diagnoses Mild ankle sprain, right, initial encounter Procedures ID OFFICE/OUTPATIENT [facility] 60 MINUTES Martin Arango, SALLIE [address] [address] Phone: tel: fax: Gricelda Hammond PT Referral ID Status Reason Start Date Expiration Date Visits Requested Visits Authorized [id number] Authorized Specialty Services Required 02/11/2025 08/18/2025 24 24 [facility] Summary Purpose Family History Relationship Condition [...] Advance Directives No May 28, 2019 12:46pm Advance Directive Response Recorded Date/ Time Advance Directives No May 28, 2019 11:46am Chief Complaint and Reason for Visit Chief Complaint g02.97 f17.210 Chief Complaint f17.210 Chief Complaint Admit Date H mo f/u COPD October 12, 2024 2:50pm Reason for Visit Admit Date COPD (chronic obstructive pulmonary dise ase) October 12, 2024 2:50pm Diastolic dysfunction October 12 2:50pm Nicotine dependence, cigarettes, uncompl icated October 12, 2024 2:50pm Chief Complaint Admit Date H mo f/u COPD October 12, 2024 2:50pm r06.02 g47.36 j43.9 i51.89 November 13, 2 1:24pm Chief Complaint Admit Date f17.210 April 13, 2025 12 :46pm Reason for Referral Specialty Diagnoses / Procedures Referred By Contac t Referred To Contact Diagnoses Intractable chronic migraine without aura and without status migrainosus (CMS/HCC) Carlos Sanchez MD [address] [facility] [address] [place] [id number] Referral ID Status Reason Start Date Expiration Date V isits Requested Visits Authorized [id number] Pending Review 04/27/2024 10/24/2024 1 1 Specialty Diagnoses / Procedures Referred By Contac t Referred To Contact Physical Therapy Diagnoses Arthritis of left knee Procedures ID OFFICE/OUTPATIENT [facility] 60 MINUTES Cj Zepeda, [employer]IDE [employer]PERATOR [address] [facility] [address] [place] [address] Galo Coronado, PT [address] [facility] [address] [place] [address] Referral ID Status Reason Start Date Expiration Date Visits Requested Visits Authorized [id number] Pending Review Specialty Services Required 04/08/2024 10/05/2024 1 1 Additional Source Comments INFORMATION SOURCE (unrecogn ized section and content) DATE CREATED AUTHOR 10/09/2021 [facility] DATE CREATED AUTHOR AUTHOR'S ORGANIZ ATION 02/22/2022 [facility] DATE CREATED AUTHOR AUTHOR'S ORGANIZ ATION 01/28/2023 [facility] DATE CREATED AUTHOR AUTHOR'S ORGANIZ ATION 06/26/2023 [facility] DATE CREATED AUTHOR AUTHOR'S ORGANIZ ATION 12/16/2024 [facility] DATE CREATED AUTHOR AUTHOR'S ORGANIZ ATION 12/17/2024 [facility] DATE CREATED AUTHOR AUTHOR'S ORGANIZ ATION 02/06/2025 [facility] DATE CREATED AUTHOR AUTHOR'S ORGANIZ ATION 02/27/2025 [facility] DATE CREATED AUTHOR AUTHOR'S ORGANIZ ATION 03/14/2025 [facility] DATE CREATED AUTHOR AUTHOR'S ORGANIZ ATION 03/26/2025 [facility] DATE CREATED AUTHOR AUTHOR'S ORGANIZ ATION 03/30/2025 [facility] DATE CREATED AUTHOR AUTHOR'S ORGANIZ ATION 04/07/2025 [facility] DATE CREATED AUTHOR AUTHOR'S ORGANIZ ATION 04/15/2025 [facility] Care Team (unrecognized sect ion and content) Team Status: Active Member Role Status Dates Robert Giron DO Primary Care Provider Active Team Status: Inactive Member Role Status Dates Robert Giron DO Primary Care Provider Active Valarie Conley APRN [facility] Attending Provider Active Retail Clerk Relationship Specialty Start Date End Date Robert Giron MD [address] [place] [address] PCP - General Family Medicine 07/24/23 Team Status: Inactive Member Role Status Dates Robert Giron DO Primary Care Provider Active Start: March 31, 2024 End: March 31, 2024 Valarie Conley APRN [facility] Attending Provider Active Start: March 31, 2024 End: March 31, 2024 Retail Clerk Relationship Specialty Start Date End Date Robert Giron MD [address] [place] [address] PCP - General Family Medicine 07/24/23 Retail Clerk Relationship Specialty Start Date End Date Robert Giron MD [address], [place] [address] PCP - General Family Medicine 07/24/23 Retail Clerk Relationship Specialty Start Date End Date Robert Giron MD [address], [place] [address] PCP - General Family Medicine 07/24/23 Retail Clerk Relationship Specialty Start Date End Date Robert Giron MD [address], [place] [address] PCP - General Family Medicine 07/24/23 Retail Clerk Relationship Specialty Start Date End Date Robert Giron MD [address], [place] [address] PCP - General Family Medicine 07/24/23 Retail Clerk Relationship Specialty Start Date End Date Robert Giron MD [address], [place] [address] PCP - General Family Medicine 07/24/23 Retail Clerk Relationship Specialty Start Date End Date Robert Giron MD [address], [place] [address] PCP - General Family Medicine 07/24/23 Retail Clerk Relationship Specialty Start Date End Date Robert Giron MD [address], [place] [address] PCP - General Family Medicine 07/24/23 Retail Clerk Relationship Specialty Start Date End Date Robert Giron MD [address], [place] [address] PCP - General Family Medicine 07/24/23 Retail Clerk Relationship Specialty Start Date End Date Robert Giron MD [address], [place] [address] PCP - General Family Medicine 07/24/23 Retail Clerk Relationship Specialty Start Date End Date Robert Giron MD [address] [place] [address] PCP - General Family Medicine 07/24/23 Retail Clerk Relationship Specialty Start Date End Date Robert Giron MD [address], [place] [address] PCP - General Family Medicine 07/24/23 Retail Clerk Relationship Specialty Start Date End Date Robert Giron MD [address] [place] [address] PCP - General Family Medicine 07/24/23 Retail Clerk Relationship Specialty Start Date End Date Robert Giron MD [address], [place] [address] PCP - General Family Medicine 07/24/23 Retail Clerk Relationship Specialty Start Date End Date Robert Giron MD [address] [place] [address] PCP - General Family Medicine 07/24/23 Retail Clerk Relationship Specialty Start Date End Date Robert Giron MD [address] [place] [address] PCP - General Family Medicine 07/24/23 Retail Clerk Relationship Specialty Start Date End Date Robert Giron MD [address] [place] [address] PCP - General Family Medicine 07/24/23 Retail Clerk Relationship Specialty Start Date End Date Robert Giron MD [address], [place] [address] PCP - General Family Medicine 07/24/23 Retail Clerk Relationship Specialty Start Date End Date Robert Giron MD [address], [place] [address] PCP - General Family Medicine 07/24/23 Retail Clerk Relationship Specialty Start Date End Date Robert Giron MD [address], [place] [address] PCP - General Family Medicine 07/24/23 Retail Clerk Relationship Specialty Start Date End Date Robert Giron MD [address], [place] [address] PCP - General Family Medicine 07/24/23 Retail Clerk Relationship Specialty Start Date End Date Robert Giron MD [address], [place] [address] PCP - General Family Medicine 07/24/23 Retail Clerk Relationship Specialty Start Date End Date Robert Giron DO [address] [place] [address] PCP - General Family Medicine 05/10/22 Retail Clerk Relationship Specialty Start Date End Date Robert Giron MD [address], [place] [address] PCP - General Family Medicine 07/24/23 Retail Clerk Relationship Specialty Start Date End Date Robert Giron MD [address] [place] [address] PCP - General Family Medicine 07/24/23 Retail Clerk Relationship Specialty Start Date End Date Robert Giron MD [address] [place] [address] PCP - General Family Medicine 07/24/23 Retail Clerk Relationship Specialty Start Date End Date Robert Giron MD [address] [place] [address] PCP - General Family Medicine 07/24/23 Retail Clerk Relationship Specialty Start Date End Date Robert Giron MD [address] [place] [address] PCP - General Family Medicine 07/24/23 Retail Clerk Relationship Specialty Start Date End Date Robert Giron MD [address] [place] [address] PCP - General Family Medicine 07/24/23 Retail Clerk Relationship Specialty Start Date End Date Robert Giron MD [address] [place] [address] PCP - General Family Medicine 07/24/23 Retail Clerk Relationship Specialty Start Date End Date Robert Giron DO [address] [place] [address] PCP - General Family Medicine 05/10/22 Retail Clerk Relationship Specialty Start Date End Date Robert Giron DO [address], [place] [address] PCP - General Family Medicine 05/10/22 Retail Clerk Relationship Specialty Start Date End Date Robert Giron DO [address], [place] [address] PCP - General Family Medicine 05/10/22 Retail Clerk Relationship Specialty Start Date End Date Robert Giron DO [address], [place] [address] PCP - General Family Medicine 05/10/22 Retail Clerk Relationship Specialty Start Date End Date Robert Giron DO [address], [place] [address] PCP - General Family Medicine 05/10/22 Retail Clerk Relationship Specialty Start Date End Date Robert Giron MD [address], [place] [address] PCP - General Family Medicine 07/24/23 Retail Clerk Relationship Specialty Start Date End Date Robert Giron DO [address], [place] [address] PCP - General Family Medicine 05/10/22 Team Status: Inactive Member Role Status Dates Robert Giron DO Primary Care Provider Active Start: October 12, 2024 End: October 12, [address] [facility]- Attending Provider Active Start: October 12, 2024 End: October 12, 2024 Retail Clerk Relationship Specialty Start Date End Date Robert Giron DO [address], [place] [address] PCP - General Family Medicine 05/10/22 Retail Clerk Relationship Specialty Start Date End Date Robert Giron DO [address], [place] [address] PCP - General Family Medicine 05/10/22 Retail Clerk Relationship Specialty Start Date End Date Robert Giron [address], [place] [address] PCP - General Family Medicine 05/10/22 Retail Clerk Relationship Specialty Start Date End Date Nellacadence Robert Jigar [address], [place] [address] PCP - General Family Medicine 05/10/22 Retail Clerk Relationship Specialty Start Date End Date Deaconcharli Robert Kimball [address], [place] [address] PCP - General Family Medicine 05/10/22 Retail Clerk Relationship Specialty Start Date End Date Robert Giron MD PCP - General Family Medicine 07/24/23 Retail Clerk Relationship Specialty Start Date End Date Robert Giron MD PCP - General Family Medicine 07/24/23 Team Status: Inactive Member Role Status Dates Robert Giron DO Primary Care Provider Active Start: November 13, 2024 End: November 13, [address] [facility]- Attending Provider Active Start: November 13, 2024 End: November 13, 2024 Retail Clerk Relationship Specialty Start Date End Date Robert Giron MD PCP - General Family Medicine 07/24/23 Retail Clerk Relationship Specialty Start Date End Date Robert Giron MD [address] [place] [address] PCP - General Family Medicine 11/19/24 Retail Clerk Relationship Specialty Start Date End Date Robert Giron MD [address] [place] [address] PCP - General Family Medicine 11/19/24 Retail Clerk Relationship Specialty Start Date End Date Robert Giron MD [address] [place] [address] PCP - General Family Medicine 11/19/24 Retail Clerk Relationship Specialty Start Date End Date Robert Giron MD [address] [place] [address] PCP - General Family Medicine 11/19/24 Retail Clerk Relationship Specialty Start Date End Date Robert Giron DO [address] [place] [address] PCP - General Family Medicine 05/10/22 Retail Clerk Relationship Specialty Start Date End Date Robert Giron DO [address] [place] [address] PCP - General Family Medicine 05/10/22 Retail Clerk Relationship Specialty Start Date End Date Robert Giron MD [address] [place] [address] PCP - General Family Medicine 11/19/24 Retail Clerk Relationship Specialty Start Date End Date Robert Giron MD [address] [place] [address] PCP - General Family Medicine 11/19/24 Retail Clerk Relationship Specialty Start Date End Date Robert Giron DO [address], [place] [address] PCP - General Family Medicine 05/10/22 Retail Clerk Relationship Specialty Start Date End Date Robert Giron MD [address] [place] [address] PCP - General Family Medicine 11/19/24 Retail Clerk Relationship Specialty Start Date End Date Robert Giron MD [address] [place] [address] PCP - General Family Medicine 11/19/24 Retail Clerk Relationship Specialty Start Date End Date Robert Giron MD [address] [place] [address] PCP - General Family Medicine 11/19/24 Retail Clerk Relationship Specialty Start Date End Date Robert Giron MD [address] [place] [address] PCP - General Family Medicine 11/19/24 Retail Clerk Relationship Specialty Start Date End Date Robert Giron MD [address], [place] [address] PCP - General Family Medicine 11/19/24 Retail Clerk Relationship Specialty Start Date End Date Robert Giron MD [address], [place] [address] PCP - General Family Medicine 11/19/24 Retail Clerk Relationship Specialty Start Date End Date Robert Giron DO [address], [place] [address] PCP - General Family Medicine 05/10/22 Retail Clerk Relationship Specialty Start Date End Date Robert Giron MD [address], [place] [address] PCP - General Family Medicine 11/19/24 Retail Clerk Relationship Specialty Start Date End Date Robert Giron MD [address], [place] [address] PCP - General Family Medicine 11/19/24 Retail Clerk Relationship Specialty Start Date End Date Robert Giron MD [address] [place] [address] PCP - General Family Medicine 11/19/24 Retail Clerk Relationship Specialty Start Date End Date Robert Giron MD [address], [place] [address] PCP - General Family Medicine 11/19/24 Retail Clerk Relationship Specialty Start Date End Date BreeRobert [address], [place] [address] PCP - General Family Medicine 05/10/22 Retail Clerk Relationship Specialty Start Date End Date Robert Giron [address], [place] [address] PCP - General Family Medicine 05/10/22 Retail Clerk Relationship Specialty Start Date End Date Robert Giron MD [address], [place] [address] PCP - General Family Medicine 11/19/24 Retail Clerk Relationship Specialty Start Date End Date Robert Giron Jigar [address], [place] [address] PCP - General Family Medicine 05/10/22 Retail Clerk Relationship Specialty Start Date End Date BreeRobert [address] [place] [address] PCP - General Family Medicine 05/10/22 Retail Clerk Relationship Specialty Start Date End Date Bree Robert Jigar [address], [place] [address] PCP - General Family Medicine 05/10/22 Retail Clerk Relationship Specialty Start Date End Date Robert Giron [address], [place] [address] PCP - General Family Medicine 05/10/22 Retail Clerk Relationship Specialty Start Date End Date Robert Giron DO [address], [facility] [place] [address] PCP - General Family Medicine 05/10/22 Team Status: Inactive Member Role Status Dates Robert Giron DO Primary Care Provider Active Start: April 13, 2025 End: April 13, 2025 Valarie Conley APRN [facility] Attending Provider Active Start: April 13, 2025 End: April 13, 2025 Goals (unrecognized section and content) Goals may be documented in a n alternate section REASON FOR VISIT (unrecogniz ed section and content) Reason Comments Pain Specialty Diagnoses / Procedures Referred By Jamal lee Referred To Contact Orthopaedic Surgery Diagnoses Primary osteoarthritis of left knee Procedures 165 ([email or web address]) - Ambulatory referral to Orthopedic Surgery ([facility]) Robert Giron MD [address], [facility] [place] [address] Phone: tel: fax: Jr. Jim Lerma DO [address] [facility] [address] [place] [address] Phone: tel: fax: Referral ID Status Reason Start Date Expiration Date Visits Re quested Visits Authorized [id number] Closed 12/25/2024 12/25/2025 1 1 Reason Onset Date Comments Med Refill 09/20/2023 Reason Comments Consult Surgery consult Reason Onset Date Comments pain 06/09/2024 Reason Onset Date Comments L knee pain 06/15/2024 Reason Comments Toenail Problem Rt 2nd toe nail issu e Reason Comments Gynecologic Exam Reason Comments Ingrown Toenail B/L ingrown nails Specialty Diagnoses / Procedures Referred By Contveronique t Referred To Contact Physical Therapy Diagnoses Arthritis of left knee Procedures ID OFFICE/OUTPATIENT NEW HIGH MDM 60 MINUTES Cj Zepeda NP [address] [place] [address] Galo Coronado, PT [address] [place] [address] Referral ID Status Reason Start Date Expiration Date Visits Requested Visits Authorized [id number] Authorized Specialty Services Required 04/15/2024 05/16/2024 12 [...] Med Refill 09/15/2024 Reason Comments controlled Reason Comments Med Refill Reason Onset Date Comments Med Refill 09/19/2024 Reason Onset Date Comments Severe Migraine 09/24/2024 FU 09/29/2024 Reason Onset Date Comments Med Refill 10/16/2024 Reason Comments discuss test results. Right hip pain Sle ep study test need O2? Reason Onset Date Comments Med Refill 10/22/2024 Reason Onset Date Comments Med Refill 11/17/2024 Reason Comments Foot Pain Ft pain Reason Comments Follow-up Rt inj Reason Comments Back Pain Neck Pain Knee Pain Reason Comments controlled medication Reason Comments Consent Or Instructions preop Reason Onset Date Comments PT Initial Eval 12/29/2024 Call Back 12/30/2024 Reason Comments Post-op 15d s/p rt 2nd neure ctomy Reason Onset Date Comments Med Refill 01/21/2025 Reason Onset Date Comments Med Refill 01/25/2025 Reason Onset Date Comments Cx PT today 01/29/2025 Reason Onset Date Comments Med Refill 01/29/2025 Reason Comments Follow-up Rt ankle sprain Reason Onset Date Comments Cx PT today 02/08/2025 Reason Onset Date Comments Med Refill 02/06/2025 Reason Comments ER/ Chest pain Reason Comments Ankle Pain Reason Comments Follow-up FECAL INCONTINENCE, LAST COLON 01/17/23, REF BY DR. HUDSON REPORTS HX OF IBS & STATES THAT SHE WILL BE CONSTIPATED FOR DAYS THEN INCONTINENCE TO FOLLOW Abdominal Cramping Specialty Diagnoses / Procedures Referred By Jamal lee Referred To Contact General Surgery Diagnoses Polyp of colon, unspecified part of colon, unspecified type NellamelvinRobert augustin, DO [address] [facility], [place] [address] Phone: tel: fax: Karlos Quinones, DO [address] [place] [address] Phone: tel: fax: Referral ID Status Reason Start Date Expiration Date V isits Requested Visits Authorized [id number] Closed Specialty Services Required 02/24/2025 02/24/2026 1 1 Reason Onset Date Comments Med Refill 03/12/2025 Reason Onset Date Comments Med Refill 03/15/2025 Reason Comments controlled medications Reason Onset Date Comments Med Refill 03/21/2025 Reason Onset Date Comments surgery clearance 03/23/2025 Reason Onset Date Comments Med Refill 03/28/2025 Reason Onset Date Comments Med Refill 04/04/2025 Reason Onset Date Comments Med Refill 04/08/2025 Source Comments (unrecognize d section and content) In the event this informatio n is protected by the Federal Confidentiality of Alcohol and Drug Abuse Patient Records regulations: The Federal rules restrict any use of the information to criminally investigate or prosecute any alcohol or drug abuse patient.[facility] FOR RECORDS PERTAINING TO PATIENTS WHO ARE [...] BE BASED ON THE PRIMARY CLINICAL RECORDS. [employer] [facility]. provides no warranty or guarantee of the accuracy or completeness of information in this document.
== END 2025-04-16 08:53 | disposition home or self-care (01) ==
LOC: US 08:52
PROVIDERS: PCP Family Medicine; Visit Provider Physician Assistant
DX: R31.9 Hematuria, unspecified (principal); N20.0 Calculus of kidney
CPT/HCPCS: 74018; 76775

== ENCOUNTER 2025-05-03 14:19 | Emergency (ER) | payer OTHER, SELFPAY ==
--- OUTSIDE RECORDS SUMMARY | 2021-09-08 12:03 | XMS_ITS | Continuity of Care Document ---
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 [address] [place] [address], [id number], [place]. tel:[phone] OFFICE/OUTPA TIENT VISIT, [facility], [address] [place] [address], [id number] , tel:[phone] [facility] Surgical Clearance (chief complaint) Type 2 diabetes mellitus with unspecified complicationsBod y mass index [BMI] 29.0-29.9, adultPreoperativ e clearanceBipolar 1 disorder 1 Pav[facility] DO Max. [address] [place] [address], [id number], [place]. tel:[phone] OFFICE/OUTPA TIENT VISIT, EST [facility], [address] [place] [address], [id number] , [place] tel:[phone] [facility] Elevated blood sugar (chief complaint) Body mass index [BMI] 29.0-29.9, adultType 2 diabetes mellitus with unspecified complicationsBip olar 1 disorder 1 Pavlock DO Max. [address] [place] [address], [id number], [place]. [phone] OFFICE/OUTPA TIENT VISIT, [facility], [address], [place], [id number] , [place] tel: [phone] [facility] GERD (chief complaint) Abdominal mass, unspecified abdominal location 1 [facility] [address], [place], [id number], [place]. tel:[phone] OFFICE/OUTPA TIENT VISIT, [facility], [address], [place], [id number] , [place] tel: [phone] [facility] f/u meds (chief complaint)Ab dominal pain (chief complaint) Body mass index [BMI] 29.0-29.9, adultAbdominal mass, unspecified abdominal locationType 2 diabetes mellitus with unspecified complications 1 [facility] DO Max. [address] [place] [address], [id number], [place]. tel:[phone] OFFICE/OUTPA TIENT VISIT, [facility], [address], [place], [id number] , [place] tel: [phone] [facility] f/u medications (chief complaint) Body mass index [BMI] 29.0-29.9, adultBipolar 1 disorderClosed fracture of right shoulder with routine healing, subsequent encounterType 2 diabetes mellitus with unspecified complications 1 Pavlock DO Max. [address], [place], [id number], [place]. tel:[phone] OFFICE/OUTPA TIENT VISIT, [facility], [address], [place], [id number] , [place] tel: [phone] [facility] check up (chief complaint) Irritable bowel syndrome with both constipation and diarrheaSwelling of left side of faceBipolar 1 disorder Apr- 1 Pavlock DO Max. [address], [place], [id number], [place]. tel:[phone] OFFICE/OUTPA TIENT VISIT, [facility], [address], [place], [id number] , [place] tel:[phone] [facility] Sleep Issues (chief complaint)In somnia (chief complaint) Body mass index [BMI] 29.0-29.9, adultBipolar 1 disorderClosed fracture of right shoulder with routine healing, subsequent encounterFibromy algiaIrritable bowel syndrome with both constipation and diarrheaLow back pain with radiationSwellin g of left side of face 1 Pavlock DO Max. [address], [place], [id number], [place]. tel:[phone] [facility], [address] [place] [address], [id number] , [place] tel:[phone] Dental Clinic consult (chief complaint) Encounter for screening for dental disorders 1 Venkat Dsouza. [address] [place] [address], [id number], [place]. tel:[phone] OFFICE/OUTPA TIENT VISIT, [facility], [address], [place], [id number] , [place] tel:[phone] [facility] A1C (chief complaint)di abetes (chief complaint) Type 2 diabetes mellitus with unspecified complicationsBod y mass index [BMI]30.0-30.9, adultClosed fracture of right shoulder with routine healing, subsequent encounter 1 Pavlock DO Max. [address], [place], [id number], [place]. tel:[phone] OFFICE/OUTPA TIENT VISIT, [facility], [address], [place], [id number] , [place] [phone] [facility] Right shoulder pain, neck pain (chief complaint)UD S (chief complaint) Closed fracture of right scapula, unspecified part of scapula, initial encounterComplia nce with medication regimenBody mass index [BMI]30.0-30.9, adult Feb- 1 Pavlock DO Max. [address], [place], [id number], [place]. tel:[phone] [facility], [address], [place], [id number] , [place] tel: [phone] [facility] COPD mixed type 1 [facility] Max. [address], [place], [id number], [place]. tel:[phone] OFFICE/OUTPA TIENT VISIT, [facility], [address], [place], [id number] , [place] tel: [phone] [facility] f/u us (chief complaint)Sh ortness of breath (chief complaint) COPD mixed typeSwelling of left side of faceNeuropathyIn somnia, unspecified typeRenal calculiBody mass index [BMI] 29.0-29.9, adult 1 [facility] Max. [address] [place] [address], [id number], [place]. tel:[phone] OFFICE/OUTPA TIENT VISIT, [facility], [address], [place], [id number] , [place] tel: [phone] [facility] hospital f/u (chief complaint)Sh ortness of breath (chief complaint) Body mass index [BMI] 29.0-29.9, adultSwelling of left side of faceCOPD mixed typeRib painType 2 diabetes mellitus with unspecified complicationsEss ential hypertension 1 [facility] Max. [address] [place] [address], [id number], [place]. tel:[phone] OFFICE/OUTPA TIENT VISIT, [facility], [address], [place], [id number] , [place] tel: [phone] [facility] Hospital F/U (chief complaint) Body mass index [BMI] 28.0-28.9, adultCOPD mixed typeSwelling of left side of face 1 [facility] [address] [place] [address], [id number], [place]. tel:[phone] OFFICE/OUTPA TIENT VISIT, [facility], [address], [place], [id number] , [place] tel: [phone] [facility] f/u er visit (chief complaint)Sh ortness of breath (chief complaint) Pneumonia due to infectious organism, unspecified laterality, unspecified part of lungRib painBody mass index [BMI] 28.0-28.9, adult 1 [facility] [address] [place] [address], [id number], [place]. tel:[phone] OFFICE/OUTPA TIENT VISIT, [facility], [address] [place] [address], [id number] , [place] tel: [phone] [facility] Cough (chief complaint) COPD mixed type 1 [facility] [address] [place] [address], [id number], [place]. tel:[phone] OFFICE/OUTPA TIENT VISIT, [facility], [address] [place] [address], [id number] , [place] tel: [phone] [facility] f/u a1c (chief complaint)de pression (chief complaint) Type 2 diabetes mellitus with unspecified complicationsBip olar 1 disorderNeuropat hySwelling of left side of face 1 [facility] DO Max. [address] [place] [address], [id number], [place]. tel:[phone] OFFICE/OUTPA TIENT VISIT, [facility], [address] [place] [address], [id number] , [place] tel: [phone] [facility] discuss ENT (chief complaint)Di arrhea (chief complaint)di abetes (chief complaint) Body mass index [BMI] 29.0-29.9, adultIrritable bowel syndrome with both constipation and diarrheaType 2 diabetes mellitus with complication, without long-term current use of insulinSwelling of left side of faceBipolar 1 disorder 1 Pavlock DO Max. [address] [place] [address], [id number], [place]. tel:[phone] OFFICE/OUTPA TIENT VISIT, [facility], [address] [place] [address], [id number] , [place] tel:[phone] [facility] f/u CT (chief complaint) Body mass index [BMI] 28.0-28.9, adultSwelling of left side of face 1 [facility] Max. [address] [place] [address], [id number], [place]. tel:[phone] OFFICE/OUTPA TIENT VISIT, [facility], [address] [place] [address], [id number] , [place] tel:[phone] [facility] sick visit (chief complaint) Swelling of left side of faceBody mass index [BMI] 28.0-28.9, adult 1 [facility]. [address] [place] [address], [id number], [place]. tel:[phone] OFFICE/OUTPA TIENT VISIT, [facility], [address] [place] [address], [id number] , [place] tel:[phone] [facility] A1C (chief complaint)di abetes (chief complaint) Body mass index [BMI] 28.0-28.9, adultType 2 diabetes mellitus with complication, without long-term current use of insulinAbdominal mass, unspecified abdominal locationFibromya lgiaLow back pain with radiationCervica l radiculopathy at C7 1 [facility]. [address] [place] [address], [id number], [place]. tel:[phone] OFFICE/OUTPA TIENT VISIT, [facility], [address] [place] [address], [id number] , [place] tel:[phone] [facility] Leg Issues (chief complaint)ba ck pain (chief complaint) Body mass index [BMI] 28.0-28.9, adultFolliculiti sFibromyalgiaNeu ropathy 1 Pavlock DO Max. [address], [place], [id number], [place]. tel:[phone] OFFICE/OUTPA TIENT VISIT, [facility], [address], [place], [id number] , [place] tel:[phone] [facility] A1C (chief complaint)Ki dney stones (chief complaint) Type 2 diabetes mellitus with complication, without long-term current use of insulinBody mass index [BMI] 28.0-28.9, adultBurning with urinationRenal calculi 0 Pavlock DO Max. [address], [place], [id number], [place]. tel:[phone] OFFICE/OUTPA TIENT VISIT, [facility], [address] [place] [address], [id number] , [place] tel:[phone] [facility] back pain (chief complaint) Low back pain with radiation 0 Pavlock DO Max. [address] [place] [address], [id number], [place]. tel:[phone] [facility], [address] [place] [address], [id number] , [place] tel:[phone] [facility] No Information 0 Pavlock DO Max. [address] [place] [address], [id number], [place]. tel:[phone] OFFICE/OUTPA TIENT VISIT, [facility], [address] [place] [address], [id number] , [place] tel:[phone] [facility] F/U GI & HEART (chief complaint)ba ck pain (chief complaint)di abetes (chief complaint) Body mass index (BMI) 26.0-26.9, adultType 2 diabetes mellitus with complication, without long-term current use of insulinFibromyal farzana 0 Pavlock DO Max. [address] [place] [address], [id number], [place]. tel:[phone] OFFICE/OUTPA TIENT VISIT, [facility], [address], [place], [id number] , [place] tel: [phone] [facility] Follow Up (chief complaint)Mu sculoskeleta l pain (chief complaint) Body mass index (BMI) 25.0-25.9, adultNeuropathyC OPD mixed typeEssential hypertension Feb- 0 Pavlock DO Max. [address], [place], [id number], [place]. tel:[phone] OFFICE/OUTPA TIENT VISIT, [facility], [address], [place], [id number] , [place] tel: [phone] [facility] L leg pain & ER follow up (chief complaint)ba ck pain (chief complaint) Body mass index (BMI) 24.0-24.9, adultLow back pain with radiationEssenti al hypertensionTach ycardia 0 Pavlock DO Max. [address], [place], [id number], [place]. tel:[phone] OFFICE/OUTPA TIENT VISIT, [facility], [address], [place], [id number] , [place] tel: [phone] [facility] Abdominal pain (chief complaint) Abdominal mass, unspecified abdominal location 0 Pavlock DO Max. [address], [place], [id number], [place]. tel:[phone] OFFICE/OUTPA TIENT VISIT, [facility], [address], [place], [id number] , [place] tel:[phone] [facility] F/U ER (chief complaint)Ab dominal pain (chief complaint) Body mass index (BMI) 23.0-23.9, adultAbdominal pain in female Oct- 0 Pavlock DO Max. [address] [place] [address], [id number], [place]. tel:[phone] OFFICE/OUTPA TIENT VISIT, [facility], [address], [place], [id number] , [place] tel:[phone] [facility] TENS UNIT (chief complaint)ba ck pain (chief complaint) Body mass index (BMI) 23.0-23.9, adultLow back pain with radiation 0 Pavlock DO Max. [address] [place] [address], [id number], [place]. tel:[phone] OFFICE/OUTPA TIENT VISIT, [facility], [address] [place] [address], [id number] , [place] tel: [phone] [facility] A1C (chief complaint)Di arrhea (chief complaint) Type 2 diabetes mellitus with complication, without long-term current use of insulinBody mass index (BMI) 22.0-22.9, adultChronic diarrheaIrritabl e bowel syndrome with both constipation and diarrheaNeuropat hy 0 Pavlock DO Max. [address] [place] [address], [id number], [place]. tel:[phone] OFFICE/OUTPA TIENT VISIT, [facility], [address] [place] [address], [id number] , [place] tel:[phone] [facility] F/U WEIGHT LOSS (chief complaint)Mu sculoskeleta l pain (chief complaint) Body mass index (BMI) 23.0-23.9, adultChronic diarrheaNeuropat hy 0 Pavlock DO Max. [address] [place] [address], [id number], [place]. tel:[phone] OFFICE/OUTPA TIENT VISIT, [facility], [address] [place] [address], [id number] , [place] tel:[phone] [facility] Med f/u (chief complaint)Di arrhea (chief complaint) Body mass index (BMI) 23.0-23.9, adultIrritable bowel syndrome with both constipation and diarrheaType 2 diabetes mellitus with complication, without long-term current use of insulinNeuropath yEssential hypertension 9 [facility]. [address], [place], [id number], [place]. tel:[phone] OFFICE/OUTPA TIENT VISIT, [facility], [address], [place], [id number] , [place] tel:[phone] [facility] med refill &A1C (chief complaint)ba ck pain (chief complaint) Body mass index (BMI) 24.0-24.9, adultType 2 diabetes mellitus with complication, without long-term current use of insulinChronic pain syndromeNeuropat hy 9 [facility]. [address], [place], [id number], [place]. tel:[phone] OFFICE/OUTPA TIENT VISIT, [facility], [address] [place] [address], [id number] , [place] tel:[phone] [facility] med issues (chief complaint) Body mass index (BMI) 24.0-24.9, adultNeuropathyI rritable bowel syndrome with both constipation and diarrhea 9 [facility]. [address] [place] [address], [id number], [place]. tel:[phone] OFFICE/OUTPA TIENT VISIT, [facility], [address], [place], [id number] , [place] tel:[phone] [facility] f/u (chief complaint)Di arrhea (chief complaint) Abdominal pain in femaleRight otitis media, unspecified otitis media typeOpiate withdrawalNeurop athy 9 [facility]. [address], [place], [id number], [place]. tel:[phone] OFFICE/OUTPA TIENT VISIT, [facility], [address], [place], [id number] , [place] tel:[phone] [facility] belly button drainage (chief complaint) Body mass index (BMI) 26.0-26.9, adultCellulitis and abscess of trunkCutaneous abscess of trunk, unspecifiedInsom elvira, unspecified typeIrritable bowel syndrome with both constipation and diarrhea 9 [facility]. [address], [place], [id number], [place]. tel:[phone] OFFICE/OUTPA TIENT VISIT, EST [facility], [address], [place], [id number] , [place] tel: [phone] [facility] 3 MONTH F/U (chief complaint) Body mass index (BMI) 26.0-26.9, adultTongue thrustMixed hyperlipidemiaTy pe 2 diabetes mellitus with complication, without long-term current use of insulin [address], [id number], [place]. tel:[phone] [facility], [address] [place] [address], [id number] , [place] tel: [phone] [facility] No Information 9 [facility]. [address] [place] [address], [id number], [place]. tel:[phone] [facility], [address] [place] [address], [id number] , [place] tel:[phone] [facility] Type 2 diabetes mellitus with complication, without long-term current use of insulin 9 [facility]. [address] [place] [address], [id number], [place]. tel:[phone] [facility], [address] [place] [address], [id number] , [place] tel: [phone] [facility] f/u insomnia (chief complaint) Body mass index (BMI) 27.0-27.9, adultType 2 diabetes mellitus with complication, without long-term current use of insulinInsomnia, unspecified typeCOPD mixed type Nov-[address], [id number], [place]. tel:[phone] [facility], [address] [place] [address], [id number] , [place] tel: [phone] [facility] Chronic eczema Oct-0 9 [facility]. [address] [place] [address], [id number], [place]. tel:[phone] [facility], [address] [place] [address], [id number] , [place] tel: [phone] [facility] diabetes (chief complaint) Type 2 diabetes mellitus with complication, without long-term current use of insulin Oct-0 9 [facility]. [address] [place] [address], [id number], [place]. tel:[phone] [facility], [address] [place] [address], [id number] , [place] tel: [phone] [facility] med refills (chief complaint) Body mass index (BMI) 27.0-27.9, adultType 2 diabetes mellitus with complication, without long-term current use of insulinInsomnia, unspecified typeEssential hypertension 9 [facility]. [address] [place] [address], [id number], [place]. tel:[phone] [facility], [address] [place] [address], [id number] , [place] tel: [phone] [facility] med refill (chief complaint) Type 2 diabetes mellitus with complication, without long-term current use of insulinEssential hypertensionMixe d hyperlipidemiaDe pression, unspecified depression typeChronic pain syndromeInsomnia , unspecified type 9 [facility]. [address] [place] [address], [id number], [place]. tel:[phone] Family History Family Member Type Diagnosis Age [...] Record Payers Payer name Insurance type Covered constitution party ID Authoriza tion(s) Medicaid Wrap - [facility] [id number] Medicaid Wrap - [facility] [id number] Medicaid Wrap - [facility] [id number] Social History Type Description Quantity Date Captured Comments Alcohol Use Details Unknown Caffeine Use Details Unknown Tobacco Use Status Smoking Status No Information Sex Female Sexual Orientation Straight or heterosexual Sep Gender Identity Female Chief Complaint And Reason For Visit No Information Reason For Referral Reason For Referral No Information Plan Of Treatment Date Type Action Status Goal ECG. Due on due Goal Urine microalbumin. Due on due Goal Foot exam. Due on due Goal Urinalysis due Goal Pneumococcal vac cine. Due on due Goal Dilated eye exam. Due on Aug due Goal Dental exam. Due on 022 due Goal Hemoglobin A1C. Due on due Goal Foot exam. Due on due Goal Dental exam. Due on 021 due Goal Urine microalbumin. Due on due Goal Pneumococcal vac cine. Due on due Goal Hemoglobin A1C. Due on due Goal ECG. Due on due Goal Urinalysis due Goal Dilated eye exam. Due on Jun due Goal Tobacco cessation counseling completed Goal Dietary manageme nt education, guidance, and counseling completed Goal Hemoglobin A1C. Due on due Goal ECG. Due on due Goal Dilated eye exam. Due on May due Goal Foot exam. Due on due Goal Urine microalbumin. Due on O due Goal Pneumococcal vac cine. Due on due Goal Dental exam. Due on due Goal Urinalysis due Goal Tobacco cessation counseling completed Goal Dietary manageme nt education, guidance, and counseling completed Goal Foot exam. Due on due Goal Urine microalbumin. Due on due Goal Urinalysis due Goal Pneumococcal vac cine. Due on due Goal Hemoglobin A1C. Due on due Goal Dental exam. Due on due Goal ECG. Due on due Goal Dilated eye exam. Due on May due Goal Hemoglobin A1C. Due on due Goal Pneumococcal vac cine. Due on due Goal Urine microalbumin. Due on due Goal ECG. Due on due Goal Urinalysis due Goal Dental exam. Due on due Goal Dilated eye exam. Due on May due Goal Foot exam. Due on due Goal Dietary manageme nt education, guidance, and counseling completed Goal Tobacco cessation counseling completed Goal Pneumococcal vac cine. Due on due Goal Urine microalbumin. Due on due Goal Urinalysis due Goal ECG. Due on due Goal Foot exam. Due on due Goal Dental exam. Due on due Goal Hemoglobin A1C. Due on due Goal Dilated eye exam. Due on Apr due Goal Dietary manageme nt education, guidance, and counseling completed Goal Urine microalbumin. Due on due Goal Foot exam. Due on due Goal Dental exam. Due on due Goal Dilated eye exam. Due on Apr due Goal Pneumococcal vac cine. Due on due Goal ECG. Due on due Goal Urinalysis due Goal Hemoglobin A1C. Due on due Goal Tobacco cessation counseling completed Goal Foot exam. Due on due Goal Urine microalbumin. Due on A due Goal Dilated eye exam. Due on Mar due Goal ECG. Due on due Goal Pneumococcal vac cine. Due on due Goal Dental exam. Due on due Goal Urinalysis due Goal Hemoglobin A1C. Due on due Goal Dietary manageme nt education, guidance, and counseling completed Goal Tobacco cessation counseling completed Goal Dilated eye exam. Due on Mar due Goal Hemoglobin A1C. Due on due Goal Pneumococcal vac cine. Due on due Goal Foot exam. Due on due Goal Dental exam. Due on due Goal ECG. Due on due Goal Urine microalbumin. Due on A due Goal Urinalysis due Goal Foot exam. Due on due Goal Hemoglobin A1C. Due on due Goal Pneumococcal vac cine. Due on due Goal Urinalysis due Goal Urine microalbumin. Due on A due Goal ECG. Due on due Goal Dilated eye exam. Due on Mar due Goal Dental exam. Due on due Goal Tobacco cessation counseling completed Goal Dietary manageme nt education, guidance, and counseling completed Goal Dental exam. Due on due Goal Pneumococcal vac cine. Due on due Goal ECG. Due on due Goal Dilated eye exam. Due on Feb due Goal Urinalysis due Goal Foot exam. Due on due Goal Urine microalbumin. Due on due Goal Hemoglobin A1C. Due on due Goal Dietary manageme nt education, guidance, and counseling completed Goal Tobacco cessation counseling completed Goal Dilated eye exam. Due on Feb due Goal Dental exam. Due on due Goal Pneumococcal vac cine. Due on due Goal ECG. Due on due Goal Hemoglobin A1C. Due on due Goal Urine microalbumin. Due on due Goal Urinalysis due Goal Foot exam. Due on due Goal Hemoglobin A1C. Due on due Goal Urine microalbumin. Due on due Goal Foot exam. Due on due Goal Dilated eye exam. Due on Feb due Goal Dental exam. Due on due Goal Urinalysis due Goal Pneumococcal vac cine. Due on due Goal ECG. Due on due Goal Dietary manageme nt education, guidance, and counseling completed Goal Tobacco cessation counseling completed Goal ECG. Due on due Goal Hemoglobin A1C. Due on due Goal Foot exam. Due on due Goal Dilated eye exam. Due on Jan due Goal Urinalysis due Goal Dental exam. Due on due Goal Pneumococcal vac cine. Due on due Goal Urine microalbumin. Due on due Goal Tobacco cessation counseling completed Goal Dietary manageme nt education, guidance, and counseling completed Goal Urinalysis due Goal ECG. Due on due Goal Pneumococcal vac cine. Due on due Goal Dental exam. Due on due Goal Dilated eye exam. Due on Jan due Goal Foot exam. Due on due Goal Hemoglobin A1C. Due on due Goal Urine microalbumin. Due on due Goal Dietary manageme nt education, guidance, and counseling completed Goal Tobacco cessation counseling completed Goal Foot exam. Due on due Goal Urinalysis due Goal Dental exam. Due on due Goal Dilated eye exam. Due on December due Goal ECG. Due on due Goal Urine microalbumin. Due on due Goal Pneumococcal vac cine. Due on due Goal Hemoglobin A1C. Due on due Goal Dietary manageme nt education, guidance, and counseling completed Goal Dental exam. Due on due Goal Pneumococcal vac cine. Due on due Goal Foot exam. Due on due Goal Hemoglobin A1C. Due on due Goal Urine microalbumin. Due on due Goal Urinalysis due Goal Dilated eye exam. Due on December due Goal ECG. Due on due Goal Urine microalbumin. Due on due Goal Dilated eye exam. Due on December due Goal Foot exam. Due on due Goal ECG. Due on due Goal Pneumococcal vac cine. Due on due Goal Hemoglobin A1C. Due on due Goal Urinalysis due Goal Dental exam. Due on due Goal Tobacco cessation counseling completed Goal Pneumococcal vac cine. Due on due Goal ECG. Due on due Goal Urine microalbumin. Due on A due Goal Dilated eye exam. Due on Nov due Goal Hemoglobin A1C. Due on due Goal Urinalysis due Goal Foot exam. Due on due Goal Dental exam. Due on due Goal Dietary manageme nt education, guidance, and counseling completed Goal Tobacco cessation counseling completed Goal Dilated eye exam. Due on Oct due Goal Urinalysis due Goal Foot exam. Due on due Goal Urine microalbumin. Due on M due Goal Hemoglobin A1C. Due on due Goal Dental exam. Due on due Goal ECG. Due on due Goal Pneumococcal vac cine. Due on due Goal Dietary manageme nt education, guidance, and counseling completed Goal Tobacco cessation counseling completed Goal Dental exam. Due on due Goal Pneumococcal vac cine. Due on due Goal Hemoglobin A1C. Due on due Goal Foot exam. Due on due Goal ECG. Due on due Goal Urine microalbumin. Due on due Goal Urinalysis due Goal Dilated eye exam. Due on Sep due Goal Dietary manageme nt education, guidance, and counseling completed Goal Tobacco cessation counseling completed Goal Foot exam. Due on due Goal Pneumococcal vac cine. Due on due Goal Dilated eye exam. Due on Sep due Goal Dental exam. Due on due Goal ECG. Due on due Goal Hemoglobin A1C. Due on due Goal Urinalysis due Goal Urine microalbumin. Due on due Goal Dietary manageme nt education, guidance, and counseling completed Goal Tobacco cessation counseling completed Goal Hemoglobin A1C. Due on due Goal ECG. Due on due Goal Foot exam. Due on 1 due Goal Dental exam. Due on 021 due Goal Urine microalbumin. Due on J due Goal Dilated eye exam. Due on Aug due Goal Pneumococcal vac cine. Due on due Goal Urinalysis due Goal Tobacco cessation counseling completed Goal Dietary manageme nt education, guidance, and counseling completed Goal Hemoglobin A1C. Due on due Goal Urinalysis due Goal Dilated eye exam. Due on Jun due Goal Foot exam. Due on 0 due Goal Dental exam. Due on due Goal ECG. Due on due Goal Urine microalbumin. Due on N due Goal Pneumococcal vac cine. Due on due Goal Tobacco cessation counseling completed Goal Dietary manageme nt education, guidance, and counseling completed Goal Hemoglobin A1C. Due on due Goal Urine microalbumin. Due on O due Goal ECG. Due on due Goal Foot exam. Due on 0 due Goal Pneumococcal vac cine. Due on due Goal Dilated eye exam. Due on May due Goal Dental exam. Due on due Goal Urine microalbumin. Due on A due Goal Hemoglobin A1C. Due on due Goal Foot exam. Due on 0 due Goal ECG. Due on due Goal Pneumococcal vac cine. Due on due Goal Dental exam. Due on due Goal Dilated eye exam. Due on Mar due Goal Dental exam. Due on due Goal Foot exam. Due on 0 due Goal Urine microalbumin. Due on due Goal Pneumococcal vac cine. Due on due Goal ECG. Due on due Goal Dilated eye exam. Due on Mar due Goal Hemoglobin A1C. Due on due Goal Tobacco cessation counseling completed Goal Dietary manageme nt education, guidance, and counseling completed Goal Hemoglobin A1C. Due on due Goal Pneumococcal vac cine. Due on due Goal Dental exam. Due on due Goal ECG. Due on due Goal Dilated eye exam. Due on Feb due Goal Foot exam. Due on 0 due Goal Urine microalbumin. Due on due Goal Dietary manageme nt education, guidance, and counseling completed Goal Tobacco cessation counseling completed Goal Urine microalbumin. Due on due Goal Hemoglobin A1C. Due on due Goal Foot exam. Due on 0 due Goal Dilated eye exam. Due on Jan due Goal Dental exam. Due on due Goal ECG. Due on due Goal Pneumococcal vac cine. Due on due Goal Tobacco cessation counseling completed Goal Dietary manageme nt education, guidance, and counseling completed Goal Pneumococcal vac cine. Due on due Goal Dental exam. Due on 020 due Goal Dilated eye exam. Due on December due Goal ECG. Due on due Goal Hemoglobin A1C. Due on due Goal Urine microalbumin. Due on due Goal Foot exam. Due on 0 due Goal Tobacco cessation counseling completed Goal Dietary manageme nt education, guidance, and counseling completed Goal Dietary manageme nt education, guidance, and counseling completed Goal Tobacco cessation counseling completed Goal Tobacco cessation counseling completed Goal Dietary manageme nt education, guidance, and counseling completed Goal Dietary manageme nt education, guidance, and counseling completed Goal Tobacco cessation counseling completed Goal Dietary manageme nt education, guidance, and counseling completed Goal Tobacco cessation counseling completed Goal Dietary manageme nt education, guidance, and counseling completed Goal Tobacco cessation counseling completed Goal Dietary manageme nt education, guidance, and counseling completed Goal Tobacco cessation counseling completed Goal Tobacco cessation counseling completed Goal Dietary manageme nt education, guidance, and counseling completed Goal Tobacco cessation counseling completed Goal Tobacco cessation counseling completed Goal Dietary manageme nt education, guidance, and counseling completed Goal Tobacco cessation counseling completed Goal Dietary manageme nt education, guidance, and counseling completed Goal Dietary manageme nt education, guidance, and counseling completed Goal Tobacco cessation counseling completed Referral Ordered: SCREENING COLONOSCOPY ordered Referral Ordered: Rheumatology (related to Fibromyalgia) ordered Referral Ordered: Referrals: Rheumatology ordered Referral Ordered: Referrals: Orthopedic Surgery ordered Referral Ordered: Complete PFT With Bronchodilator ordered Referral Ordered: Maxillofacial Surgery (related to Swelling of left side of face) ordered Referral Ordered: Referrals: Pulmonology ordered Referral Ordered: Referrals: Urology ordered Referral Ordered: Referrals: Maxillofacial Surgery ordered Referral Ordered: US Exam Of Head & Neck Bilateral ordered Referral Ordered: CT Neck Spine W/O Dye ordered Referral Ordered: CT Thorax W/O & W/Dye ordered Referral Ordered: Surgery (related to Swelling of left side of face) ordered Referral Ordered: Referrals: Surgery ordered Referral Ordered: Otolaryngology (related to Swelling of left side of face) ordered Referral Ordered: Referrals: Otolaryngology ordered Referral Ordered: CT Soft Tissue Neck W/O Dye ordered Referral Ordered: CT Maxillofacial W/O Dye ordered Referral Ordered: CT Abdomen & Pelvis With Contrast ordered Future Order: Lab Order GLYCOSYL ATED HEMOGLOBIN TEST ([id number]), Collected on: , Sent on: Sent Future Order: Lab Order Complpete valle Drug Analysis, Ur ([id number]), Collected on: , Sent on: Sent History Of Present Illness Encounter Date Complaint [...] last filled Percocet 05/25 & Xanax 05/15TGrodi STRATEGIC CONSULTANT ,above was reviewed and agreed with MLP [...] she had heart monitor placed today at [facility] in [place]. Pt c/o bilateral groin pain, denies injury. HATTIE Shit also states her anxiety is very much out of control and has not found anything to help ,above was reviewed and agreed with [facility] check up Patient was seen in [place] a few weeks ago by an ortho doctor, pt states that she got into it with that doctor and explains that she went to see an ortho doctor in [place] instead. Pt is currently scheduled to start [...] Dr. Simon again. OARRS completed, Last Filled Blount 04/[address] Pena, Percocet from [facility], Tramadol 03/[address] Pena & Percocet / from Dr. Silveira [facility] Insomnia The patient pres ents with sleep [...] earlier. OARRS completed, last filled Percocet 03/13TGrodi STR[employer]G[facility] CONS[facility]ANT Right shoulder pain, neck pain P resents for right shoulder pain d/t fall on 03/10/2021. States her tegretol is causing her to see things and do strange things. Reports that she thought her daughters dog was jumping at her and she dove on the ground. Went to [facility] ER and was diagnosed with a fracture right shoulder. Pt is wearing a sling to right shoulder. Also c/o neck pain. Claribel Del Valle RN UDS + BUP, OXY, and TCA. Claribel KUHNt denies taking anything other then the oxycodone that she was prescribed in the ER, see Oarrs for details f/u us Pt here for f/u US. Pt c/o sob with increased activity, states she has been on 2L of O2 since last appt. Pt denies any other issues or concerns. Crista Shi is having more issues with the [...] and wheezing. hospital f/u Pt here today [facility] hospital f/u. Pt was admitted to [facility] 01/13/21 for COPD exacerbation. Pt is now [...] follow up. Pt states she went to [facility] Saturday cause not doing any better [...] 3 days ago. No other issues or concernsTGrodi JANETT ,above was reviewed and agreed with MLP [...] f/u ER visit. Pt was evaluated at [place] ER on 01/07/21 d/t sob, pt was [...] BOSE. Pt was evaluated in ED at [facility] last Saturday d/t L face pain and swelling, pt states she was prescribed steroids and Hydrocodone d/t pain, states they also did a CT scan. Pt c/o increased dry mouth that started when she noticed the swelling on her L face/jaw area. Pt denies any other issues or concerns. CLIFTON Shi ,above was reviewed and agreed with [facility] sick visit Pt c/o lump uppe r jaw and sore throat. Pt states it started 2 days ago, denies taking any OTC medications. Pt denies any other issues or concerns. Jose Guadalupe RNpt states that she is having trouble swallowing [...] her miserable. [facility] completed, [facility] Pt here today wi th [...] with her so they sent her to [facility]. Pt states she went to [facility] and she was offered counseling. Pt states she was never offered to get injections for pain. OARRS completed, [facility] The problem is w orsening. [...] to pain management to a doctor in [facility] completed, last filled Tram[facility] 06[facility]01 [facility] Onset: sudden. P ain level [...] OARRS completed, no other issues or concernsTGrodi STRATEGIC CONSULTANT back pain Location of pain is lower [...] broke. OARRS completed, last filled Tramadol 01/05/2020TGrodi STRATEGIC CONSULTANT Musculoskeletal pain It occurs c onstantly and [...] she went to get her colonoscopy at [facility] because Dr. Cramer found a lesion that he wanted to look at again. Pt states she went in for this and her Heart rate was in the 180's so they did not do the colonoscopy and she was kept at [facility] for observation. Pt was allowed to [...] VENTOLIN. OARRS completed, last filled Tramadol 01/04TGrodi STR[employer] CONS[facility]ANT back pain Location of pain is lower [...] f/u from ER. Pt was evaluated in [facility] on Saturday d/t increased lower back pain, [...] ON XIFAXAN. NO other issues or concernsTGrodi STRATEGIC CONSULTANT back pain Onset: gradual w ith injury. [...] PT states she last weighed herself at [facility] and she was at 139.0. 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 Pt wrote down the symptoms, testing and treatment for this condition and wants to talk to Dr. Newton about this. PT NEEDS REFILLS ON HYOSCYAMINE, SINGULAIRNo other issues or concerns. TGrodi STRATEGIC CONSULTANT Musculoskeletal pain Onset: 10 y ears ago. [...] going to see Dr. Maharaj tomorrow in [place] for PM. Pt states Dr. House had to cut open the top of her R foot and had to grind down a bone. Pt had this done yesterday. Pt is following with him on this. PT NEEDS REFILLS ON ONGLYZA, IBGARD, NEBULIZER SOLUTION, VENTOLIN. OARRS completed, last filled Gabapentin 07/02 for 4 days, Phenobarbital 06/03 & Xanax 05/[address] Remy. TGrodi STRATEGIC CONSULTANT Diarrhea Onset: sudden. S tool frequency: 8 [...] from Dr. Remy, Gabapentin 05/19 & Percocet / from Dr. Gagan Fay. TGrodi STRATEGIC CONSULTANT back pain The problem is w orsening. [...] she talked with Rafael the pharmacist from [employer]. They suggested her to get off the [...] Fay, & Xanax 01/[address] Bay Maharaj states she also is still having sleep issuesPt blood sugar is getting up over 200 in the evening f/u insomnia Pt here today to f/u with insomnia. Pt states it is getting better for her. Pt also wants Hep A shot. OARRS completed, filled controls from other provider. Roxanne SERRANOt states she is doing good diabetes Additional [...] put on Propranolol & Melatonin. OARRS completed, TGrodshirley SERRANOt states she is otherwise doing ok, sugars are doing good too med refill Pt presents to [facility] for medication refill and surgery clearance. Pt is having surgery on Sep 24 at [facility] with Dr. House. NATIVIDAD BishopNPatients Pharmacy is [facility], [address] [place] [id number] states she is still having trouble sleeping [...]
[2025-05-03 14:23] VITALS: BP 151/86; PULSE 68; TEMP 36.8; O2SAT 98; BMI 25.9
--- OUTSIDE RECORDS SUMMARY | 2025-05-03 14:26 | XMS_ITS | Encounter Summary ---
Author Organization [facility] Address [id number] [address] [place] [address] Care Team Providers Care Director Apparel Name Role Phone Robert Hathaway DO Primary Care Provider [phone] Encounter Details Date Type Department Care Team (Late st Contact Info) Description 09/30/2023 Orders Only [facility] Internal [facility] - Family Medicine [address] [place] [address] Robert Hathaway DO [address] [facility] [place] [address] Social History Tobacco Use Types Packs/Day Years Used Date Smoking Tobacco: Former Cigarettes 0.8 35 0 04/15/1988 - 04/15/2023 Smokeless Tobacco: Never Comments:Smoke 1 PPD x 10 ye ars Alcohol Use Standard Drinks/Week Comments Not Currently 0 (1 standard drink = 0.6 oz pur e alcohol) [facility] Utilities Answer Date Recorded In the past 12 months has [employer] electric, gas, oil, or water company threatened to shut off services in your home? No 07/08/2023 Social Connection and Isolat ion Panel [NHANES] Answer Date Recorded In a typical week, how many times do you talk on the phone with family, friends, or neighbors? More than three times a week 01/24/2023 How often do you get togethe r with friends or relatives? More than three times a week 01/24/2023 How often do you attend chur ch or latter day services? Never 01/24/2023 Do you belong to any clubs o r organizations such as restoration groups, unions, fraternal or athletic groups, or school groups? No 01/24/2023 How often do you attend meet ings of the clubs or organizations you belong to? Never 01/24/2023 Are you , , di vorced, , never , or living with a partner? 01/24/2023 AUDIT-C Answer Date Recorded Q1: How often do you have a drink containing alc ohol? Monthly or less 01/24/2023 Q2: How many drinks containi ng alcohol do you have on a typical day when you are drinking? 3 or 4 01/24/2023 Q3: How often do you have si x or more drinks on one occasion? Never 01/24/2023 Overall Financial Resource Strain (CARDIA) Answe r Date Recorded How hard is it for you to pa y for the very basics like food, housing, medical care, and heating? Not very hard 07/07/2023 PHQ-2 Answer Date Recorded Total Score 0 10/03/2023 [facility] of Occupat ional Health - Occupational Stress Questionnaire Answer Date Recorded Do you feel stress - tense, restless, nervous, or anxious, or unable to sleep at night because your mind is troubled all the time - these days? To some extent 01/24/2023 Exercise Vital Sign Answer Date Recorde d On average, how many days pe r week do you engage in moderate to strenuous exercise (like a brisk walk)? 4 days 01/24/2023 On average, how many minutes do you engage in exercise at this level? 10 min 01/24/2023 PRAPARE - Transportation Answer Date Re corded In the past 12 months, has l ack of transportation kept you from medical appointments or from getting medications? Yes 06/19 In the past 12 months, has l ack of transportation kept you from meetings, work, or from getting things needed for daily living? Yes 07/07/2023 Housing Instability Answer Date Recorde d Are you worried or concerned that in the next two months you may not have stable housing that you own, rent or stay in as a part of a household? No 07/07/2023 Childcare Answer Date Recorded Do problems getting child ca re make it difficult for you to work or study? No 01/24/2023 Employment Answer Date Recorded Do you need help finding a [facility] career center and/or a training program? No 01/24/2023 Hunger Screening Answer Date Recorded Within the past 12 months we worried whether our food would run out before we got money to buy more. Never True 10/03/2023 Within the past 12 months th e food we bought just didn't last and we didn't have money to get more. Never True 10/03/2023 Purpose - Life Answer Date Recorded I have a purpose and direction in my life. Stron gly Agree 01/24/2023 Comments No Sex and Gender Information Value Date Recorded Sex Assigned at Not on file Legal Sex Female 11:58 AM EDT Gender Identity Not on file Sexual Orientation Not on file documented as of this encounter Plan of Treatment Upcoming Encounters Date Type Department Care Team (Late st Contact Info) Description 06/17/2025 1:30 PM EDT Office Visit [facility] - Family Medicine [address] [place] [address] Robert Hathaway DO [address] [facility] [place] [address] documented as of this encounter Visit Diagnoses Not on filedocumented in this encounter Additional Health Concerns Assessment Noted Time PHQ-9 Depression Total Score: 0 06/20/20 23 1:56 PM EDT A Body Mass Index follow-up plan has been documented for the patient 07/10/2023 3:34 PM EST documented as of this encounter Care Teams Director Apparel Relationship Specialty Start Date End Date Robert Hathaway DO [address] [facility] [place] [address] PCP - General Family Medicine 05/10/22 documented as of this encounter
--- OUTSIDE RECORDS SUMMARY | 2025-05-03 14:26 | XMS_ITS | Encounter Summary ---
Author Organization [facility] Address [id number] [address] [place] [address] Care Team Providers Care Washcoat Wiper Name Role Phone Robert Hathaway DO Primary Care Provider [phone] Encounter Details Date Type Department Care Team (Late st Contact Info) Description 08/27/2023 Telephone [facility] Internal Medicine - Family Medicine [address] [place] [id number] Robert Hathaway DO [address] [facility], [facility] [place] [address] Social History Tobacco Use Types Packs/Day Years Used Date Smoking Tobacco: Former Cigarettes 0.8 35 0 04/15/1988 - 04/15/2023 Smokeless Tobacco: Never Comments:Smoke 1 PPD x 10 ye ars Alcohol Use Standard Drinks/Week Comments Not Currently 0 (1 standard drink = 0.6 oz pur e alcohol) [facility] Utilities Answer Date Recorded In the past 12 months has [employer] electric, gas, oil, or water company threatened [...] often do you attend chur ch or latter-day services? Never 01/24/2023 Do you belong to any clubs o r organizations such as yarsanism groups, unions, fraternal or athletic groups, or [...] PHQ-2 Answer Date Recorded Total Score 0 06/20/2023 [facility] of Occupat ional Health - Occupational Stress [...] Recorded Do you need help finding a [facility] career center and/or a training program? No 01/24/2023 Hunger Screening Answer Date Recorded Within the past 12 months we worried whether our food would run out before we got money to buy more. Sometimes True 023 Within the past 12 months th e food we bought just didn't last and we didn't have money to get more. Sometimes True 07/07/2023 Purpose - Life Answer Date Recorded I have a purpose and direction in my life. Stron gly Agree 01/24/2023 Comments No Sex and Gender Information Value Date Recorded Sex Assigned at Not on file Legal Sex Female 11:58 AM EDT Gender Identity Not on file Sexual Orientation Not on file documented as of this encounter Miscellaneous Notes * Telephone Encounter - Roxanne Smith - 08/27/2023 11:53 AM EST PATIENT CALLED AND SAID THAT SHE IS NO LONGER HAVING THE ALLERGIC REACTION AND IS FEELING BETTER documented in this encounter Plan of Treatment Upcoming Encounters Date Type Department Care Team (Late st Contact Info) Description 06/17/2025 1:30 PM EDT Office Visit [facility] - Family Medicine [address] [place] [address] Robert Hathaway DO [address] [place] [address] documented as of this encounter Visit Diagnoses Not on filedocumented in this encounter Additional Health Concerns Assessment Noted Time PHQ-9 Depression Total Score: 0 06/20/20 23 1:56 PM EDT A Body Mass Index follow-up plan has been documented for the patient 07/10/2023 3:34 PM EST documented as of this encounter Care Teams Washcoat Wiper Relationship Specialty Start Date End Date Robetr Hathaway DO [address] [place] [address] PCP - General Family Medicine 05/10/22 documented as of this encounter
--- OUTSIDE RECORDS SUMMARY | 2025-05-03 14:26 | XMS_ITS | Encounter Summary ---
Author Organization [facility] Address [address] [place] [address] Care Team Providers Care Rubbish Collector Name Role Phone Robert Hathaway MD Primary Care Provider [phone] Encounter Details Date Type Department Care Team (Late st Contact Info) Description 04/16/2025 Telephone [facility] [address] [place] [address] Britni Rosas ARRT Social History Tobacco Use Types Packs/Day Years Used Date Smoking Tobacco: Former Cigarettes 0.5 39.7 S tarted: 08/19/1985 Passive Smoke Exposure: Current Smokeless Tobacco: Never Alcohol Use Standard Drinks/Week Comments Not Currently 0 (1 standard drink = 0.6 oz pure alcohol) caffeine intake: 1-2 cups per day AUDIT-C Answer Date Recorded Q1: How often do you have a drink containing alc ohol? Monthly or less 04/08/2024 Q2: How many drinks containi ng alcohol do you have on a typical day when you are drinking? 1 or 2 04/08/2024 Q3: How often do you have si x or more drinks on one occasion? Less than monthly 04/08/2024 Comments No Sex and Gender Information Value Date Recorded Sex Assigned at Female 03/24/2024 7:44 PM EDT Legal Sex Female 6:42 PM EDT Gender Identity Female 03/24/2024 7:44 PM EDT Sexual Orientation Not on file documented as of this encounter Miscellaneous Notes * Telephone Encounter - Alla Arce MA - 04/20/2025 8:20 AM EDT Faxed over to [facility]. * Telephone Encounter - ROSHAN De Dios - 04/16/2025 9:00 AM EDT Checked for paperwork in Alla's office and could not find. I called and spoke to Jennifer at [facility] and explained Alla will be back and will fax over needed paperwork. Pt PAT appt is at 9am. * Telephone Encounter - ROSHAN Crowley - 04/16/2025 8:49 AM EDT Francesca from [facility] called and said that they need PAT orders for this patient. She is havinga LT TKA on 05/10/25. She is scheduled for PAT on Saturday04/20/25. documented in this encounter Plan of Treatment Upcoming Encounters Date Type Department Care Team (Late st Contact Info) Description 06/10/2025 2:00 PM EDT Office Visit [facility] [address] [facility] [address] [place] [address] Carlos Sanchez MD [address] [facility] [address] [id number] documented as of this encounter Visit Diagnoses Not on filedocumented in this encounter Care Teams Rubbish Collector Relationship Specialty Start Date End Date Robert Hathaway MD [address], [facility] [place] [address] PCP - General Family Medicine 11/19/24 documented as of this encounter
--- OUTSIDE RECORDS SUMMARY | 2025-05-03 14:26 | XMS_ITS | Encounter Summary ---
Author Organization [employer] s tem Address [id number] [address] [place] [address] Care Team Providers Care Expanded Function Dental Assistant Name Role Phone Robert Hathaway Primary Care Provider +[phone] Encounter Details Date Type Department Care Team (Late st Contact Info) Description 07/09/2023 Telephone [facility] Internal Medicine - Family Medicine [address] [place] [phone] Simi Petty CMA Social History Tobacco Use Types Packs/Day Years Used Date Smoking Tobacco: Former Cigarettes 0.8 35 0 04/15/1988 - 04/15/2023 Smokeless Tobacco: Never Comments:Smoke 1 PPD x 10 ye ars Alcohol Use Standard Drinks/Week Comments Not Currently 0 (1 standard drink = 0.6 oz pur e alcohol) [facility] Utilities Answer Date Recorded In the past 12 months has [employer], gas, oil, or water [employer] threatened to shut off services in your [...] often do you attend chur ch or mormon services? Never 01/24/2023 Do you belong to any clubs o r organizations such as bahai groups, unions, fraternal or athletic groups, or [...] Answer Date Recorded Total Score 0 06/20/2023 [facility] - Occupational Stress Questionnaire Answer Date Recorded [...] Recorded Do you need help finding a inter-community medical centeral career center and/or a training program? No [...] encounter Miscellaneous Notes * Telephone Encounter - Simi Petty CMA - 07/09/2023 10:51 AM EST Maya from [facility] Pre cert called and stated that the MRI is still pending and if not approvedby 2pm they will reschedule patient * Telephone Encounter - Robert Hathaway DO - 07/09/2023 10:51 AM EST Ok but I haven't received any information about PA and probably won't be able to in the next 2 hours documented in this encounter Plan of Treatment Upcoming Encounters Date Type Department Care Team (Late st Contact Info) Description 06/17/2025 1:30 PM EDT Office Visit [facility] Internal Medicine - Family Medicine [address] [place] [address] Robert Hathaway DO [address] [facility] [place] [place] [address] documented as of this encounter Visit Diagnoses Not on filedocumented in this encounter Additional Health Concerns Assessment Noted Time PHQ-9 Depression Total Score: 0 06/20/20 23 1:56 PM EDT A Body Mass Index follow-up plan has been documented for the patient 01/02/2023 6:47 PM EDT documented as of this encounter Care Teams Expanded Function Dental Assistant Relationship Specialty Start Date End Date Robert Hathaway DO [address], [facility] [place] [place] [address] PCP - General Family Medicine 05/10/22 documented as of this encounter
--- OUTSIDE RECORDS SUMMARY | 2025-05-03 14:26 | XMS_ITS | Encounter Summary ---
Author Organization [facility] Address [id number] [address] [place] [address] Care Team Providers Care Editor Magazine Name Role Phone NellaRobert vila Primary Care Provider +1 [phone] Encounter Details Date Type Department Care Team (Late st Contact Info) Description 09/20/2023 Orders Only [facility] Internal Medicine - Family Medicine [address] [place] [phone] External, Scanning Provider Social History Tobacco Use Types Packs/Day Years Used Date Smoking Tobacco: Former Cigarettes 0.8 35 0 04/15/1988 - 04/15/2023 Smokeless Tobacco: Never Comments:Smoke 1 PPD x 10 ye ars Alcohol Use Standard Drinks/Week Comments Not Currently 0 (1 standard drink = 0.6 oz pur e alcohol) [facility] Utilities Answer Date Recorded In the past 12 months has [employer], gas, oil, or water [employer] threatened to shut off services in your [...] often do you attend chur ch or worship services? Never 01/24/2023 Do you belong to any clubs o r organizations such as pentecostalism groups, unions, fraternal or athletic groups, or [...] Answer Date Recorded Total Score 0 06/20/2023 [facility] Occupat ional Health - Occupational [...] Recorded Do you need help finding a [facility] career center and/or a training program? No [...] - Family Medicine [address] [place] [address] Robert Hathaway DO [address], [facility] [place] [address] documented as of this encounter Procedures Procedure Name Priority Date/Time Associated Diagnosis Comments XR CHEST 2 VWS Routine 09/20/2023 11:53 AM EST documented in this encounter Results * X-ray chest 2 views (09/20/2023 11:53 AM EST) Anatomical Region Laterality Modality Body, Chest N/A Computed Radiogr aphy us Scanning Provider External IMG DIAGNOSTIC IMAGIN G ORDERABLES Final Result documented in this encounter Visit Diagnoses Not on filedocumented in this encounter Additional Health Concerns Assessment Noted Time PHQ-9 Depression Total Score: 0 06/20/20 23 1:56 PM EDT A Body Mass Index follow-up plan has been documented for the patient 07/10/2023 3:34 PM EST documented as of this encounter Care Teams Editor Magazine Relationship Specialty Start Date End Date Robert Hathaway DO [address], [facility] [place] [address] PCP - General Family Medicine 9/22/22 documented as of this encounter
--- OUTSIDE RECORDS SUMMARY | 2025-05-03 14:26 | XMS_ITS | Encounter Summary ---
Author Organization [facility] tem Address [id number] [address] [place] [address] Care Team Providers Care Turn Machine Operator Name Role Phone Robert Hathaway DO Primary Care Provider [phone] Encounter Details Date Type Department Care Team (Late st Contact Info) Description 07/26/2023 Orders Only [facility] Internal Medicine - Family Medicine [address] [place] [address] Robert Hathaway DO [address] [facility] [place] [address] Social History Tobacco Use Types Packs/Day Years Used Date Smoking Tobacco: Former Cigarettes 0.8 35 0 04/15/1988 - 04/15/2023 Smokeless Tobacco: Never Comments:Smoke 1 PPD x 10 ye ars Alcohol Use Standard Drinks/Week Comments Not Currently 0 (1 standard drink = 0.6 oz pur e alcohol) [facility] Utilities Answer Date Recorded In the past 12 months has [employer], gas, oil, or water company threatened [...] often do you attend chur ch or temple services? Never 01/24/2023 Do you belong to any clubs o r organizations such as oriental orthodox groups, unions, fraternal or athletic groups, or [...] Answer Date Recorded Total Score 0 06/20/2023 [facility] ional Health - Occupational Stress [...] Recorded Do you need help finding a [facility] career center and/or a training program? [...] - Family Medicine [address] [place] [address] Robert Hathaway DO [address] [facility] [place] [address] documented as of this encounter Visit Diagnoses Not on filedocumented in this encounter Additional Health Concerns Assessment Noted Time PHQ-9 Depression Total Score: 0 06/20/20 23 1:56 PM EDT A Body Mass Index follow-up plan has been documented for the patient 07/10/2023 3:34 PM EST documented as of this encounter Care Teams Turn Machine Operator Relationship Specialty Start Date End Date Robert Hathaway DO [address] [facility] [place] [address] PCP - General Family Medicine 05/10/22 documented as of this encounter
--- OUTSIDE RECORDS SUMMARY | 2025-05-03 14:26 | XMS_ITS | Encounter Summary ---
Author Organization [employer] s tem Address [id number] [address] [place] [address] Care Team Providers Care Control Panel Assembler Name Role Phone NellaRobert vila Primary Care Provider [phone] Encounter Details Date Type Department Care Team (Late st Contact Info) Description 10/01/2023 [facility]phone [facility] Medicine [address] [place] [address] Ramona Silva CMA Social History Tobacco Use Types Packs/Day Years Used Date Smoking Tobacco: Former Cigarettes 0.8 35 0 04/15/1988 - 04/15/2023 Smokeless Tobacco: Never Comments:Smoke 1 PPD x 10 ye ars Alcohol Use Standard Drinks/Week Comments Not Currently 0 (1 standard drink = 0.6 oz pur e alcohol) [facility] Utilities Answer Date Recorded In the past 12 months has [employer], gas, oil, or water [employer] threatened to shut off services in your [...] often do you attend chur ch or samaritan services? Never 01/24/2023 Do you belong to any clubs o r organizations such as jewish groups, unions, fraternal or athletic groups, or [...] Answer Date Recorded Total Score 0 10/03/2023 [facility] - Occupational Stress Questionnaire Answer [...] Recorded Do you need help finding a [facility] career center and/or a training program? [...] encounter Miscellaneous Notes * Telephone Encounter - Ramona Silva CMA - 10/01/2023 11:25 AM EST Pt called she states her sugar have been going up and down like within a hour from 81 to 180 was wondering what you advise? She has had one as low as 45. * Telephone Encounter - Robert Hathaway DO - 10/01/2023 11:25 AM EST Stay on metformin for now. She is due for an appointment on or around October 08 but I do not see 1 scheduled. Please set up. Have her bring in her Dexcom monitor so we can downloaded * Telephone Encounter - Roxanne Smith - 10/01/2023 11:25 AM EST She comes in on the for a pre op * Telephone Encounter - Ramona Silva CMA - 10/01/2023 11:25 AM EST I called pt and told her to bring in her Dexcom. She will. Asked her how is she feeling. Her sugar did drop to 61 last night . She will see us 15 documented in this encounter Plan of Treatment Upcoming Encounters Date Type Department Care Team (Late st Contact Info) Description 06/17/2025 1:30 PM EDT Office Visit [facility] Internal Medicine - Family Medicine [address] [place] [address] Robert Hathaway DO [address] [facility] [place] [address] documented as of this encounter Visit Diagnoses Not on filedocumented in this encounter Additional Health Concerns Assessment Noted Time PHQ-9 Depression Total Score: 0 06/20/20 1:56 PM EDT A Body Mass Index follow-up plan has been documented for the patient 07/10/2023 3:34 PM EST documented as of this encounter Care Teams Control Panel Assembler Relationship Specialty Start Date End Date Robert Hathaway DO [address] [facility] [place] [address] PCP - General Family Medicine 05/10/22 documented as of this encounter
--- OUTSIDE RECORDS SUMMARY | 2025-05-03 14:26 | XMS_ITS | Encounter Summary ---
Author Organization [facility] Address [address] [facility], [address] [place] [address] Care Team Providers Care Travel Clerk Name Role Phone Robert Hathaway DO Primary Care Provider Encounter Details Date Type Department Care Team (Late st Contact Info) Description 11/24/2021 Telephone [facility] [address] [place] [id number] Symone Bryson Social History Tobacco Use Types Packs/Day Years Used Date Smoking Tobacco: Every Day Cigarettes 1 15 Started: 11/08/1998; Last attempted to quit: 11/08/2013 Smokeless Tobacco: Never Alcohol Use Standard Drinks/Week Comments No 0 (1 standard drink = 0.6 oz pur e alcohol) Comments No Sex and Gender Information Value Date Recorded Sex Assigned at Not on file Legal Sex Female 3:35 PM EST Gender Identity Not on file Sexual Orientation Not on file Occupation Industry Job Start Date Job End Date Disability Not on file Not on file Not on file documented as of this encounter Plan of Treatment Not on file documented as of this encounter Visit Diagnoses Not on filedocumented in this encounter Care Teams Travel Clerk Relationship Specialty Start Date End Date Robert Hathaway DO [address] [place] [address] PCP - General Family Medicine 03/04/24 documented as of this encounter
--- OUTSIDE RECORDS SUMMARY | 2025-05-03 14:26 | XMS_ITS | Encounter Summary ---
Author Organization [facility] Address [id number] [address] [place] [address] Care Team Providers Care Cdl Bulk Driver Name Role Phone Robert Hathaway Primary Care Provider + [phone] Reason for Visit * Reason Comments Med Refill Encounter Details Date Type Department Care Team (Late st Contact Info) Description 07/23/2024 Refill [facility] Rhe[facility] [address] [phone] Matthew Nicole MD [address] [address] Fibromyalgia Social History Tobacco Use Types Packs/Day Years Used Date Smoking Tobacco: Every Day Cigarettes 0.8 35 Started: 04/15/1988; Last attempted to quit: 04/15/2023 Smokeless Tobacco: Never Alcohol Use Standard Drinks/Week Comments Not Currently 0 (1 standard drink = 0.6 oz pur e alcohol) [facility] Utilities Answer Date Recorded In the past 12 months has [employer], gas, oil, or water company threatened [...] often do you attend chur ch or adventism services? Never 01/24/2023 Do you belong to any clubs o r organizations such as episcopal groups, unions, fraternal or athletic groups, or [...] PHQ-2 Answer Date Recorded Total Score 0 04/30/2024 [facility] [place] of Occupat ional Health - Occupational Stress [...] Recorded Do you need help finding a [facility] career center and/or a training program? No 01/24/2023 Hunger Screening Answer Date Recorded Within the past 12 months we worried whether our food would run out before we got money to buy more. Never True 07/07/2024 Within the past 12 months th e food we bought just didn't last and we didn't have money to get more. Never True 07/07/2024 Purpose - Life Answer Date Recorded I [...] - Family Medicine [address] [place] [address] Robert Hathaway DO [address] [facility] [place] [address] documented as of this encounter Visit Diagnoses Diagnosis Fibromyalgia Unspecified myalgia and myositis documented in this encounter Additional Health Concerns Assessment Noted Time PHQ-9 Depression Total Score: 0 04/30/20 24 1:58 PM EDT A Body Mass Index follow-up plan has been documented for the patient 07/10/2023 3:34 PM EST documented as of this encounter Care Teams Cdl Bulk Driver Relationship Specialty Start Date End Date Robert Hathaway DO [address] [place] [address] PCP - General Family Medicine 05/10/22 documented as of this encounter
--- OUTSIDE RECORDS SUMMARY | 2025-05-03 14:26 | XMS_ITS | Encounter Summary ---
Author Organization [employer] s [employer] Address [facility] [place]-[id number] [address] [place] [address] Care Team Providers Care Perforator Loader Name Role Phone Robert Hathaway Primary Care Provider [phone] Encounter Details Date Type Department Care Team (Late st Contact Info) Description 08/14/2023 Telephone [facility] Internal Medicine - Family Medicine [address] [place] [phone] Simi Petty CMA Social History Tobacco Use Types Packs/Day Years Used Date Smoking Tobacco: Former Cigarettes 0.8 35 0 04/15/1988 - 04/15/2023 Smokeless Tobacco: Never Comments:Smoke 1 PPD x 10 ye ars Alcohol Use Standard Drinks/Week Comments Not Currently 0 (1 standard drink = 0.6 oz pur e alcohol) [facility] Utilities Answer Date Recorded In the past 12 months has [employer] gas, oil, or water [employer] threatened to shut off services in your [...] often do you attend chur ch or adventist services? Never 01/24/2023 Do you belong to any clubs o r organizations such as faith groups, unions, fraternal or athletic groups, or [...] Answer Date Recorded Total Score 0 06/20/2023 [facility] - Occupational Stress Questionnaire Answer Date [...] Recorded Do you need help finding a [facility] career center and/or a training program? No [...] Telephone Encounter - Simi Petty CMA - 08/14/2023 1:49 PM EST Pt was in the ER on and is due to F/U with in 7 days due to allergic reaction. Where would you like me to fit her in at? She prefers [facility]. * Telephone Encounter - Robert Hathaway DO - 08/14/2023 1:49 PM EST It has not like hospital follow-up for transition of care. It can be with Megha or Yashira * Telephone Encounter - Simi Petty CMA - 08/14/2023 1:49 PM EST Left message for patient to call back and schedule. * Telephone Encounter - Simi Petty CMA - 08/14/2023 1:49 PM EST Patient states allergic reaction cleared up and does not feel she needs an apt. documented in this encounter Plan of Treatment Upcoming Encounters Date Type Department Care Team (Late st Contact Info) Description 06/17/2025 1:30 PM EDT Office Visit [facility] Internal Medicine - Family Medicine [address] [place] [address] Robert Hathaway DO [address] [place] [address] documented as of this encounter Visit Diagnoses Not on filedocumented in this encounter Additional Health Concerns Assessment Noted Time PHQ-9 Depression Total Score: 0 06/20/20 23 1:56 PM EDT A Body Mass Index follow-up plan has been documented for the patient 07/10/2023 3:34 PM EST documented as of this encounter Care Teams Perforator Loader Relationship Specialty Start Date End Date Robert Hathaway DO [address] [facility] [place] [address] PCP - General Family Medicine 05/10/22 documented as of this encounter
--- OUTSIDE RECORDS SUMMARY | 2025-05-03 14:26 | XMS_ITS | Encounter Summary ---
Author Organization [facility] Address [id number] [address] [place] [address] Care Team Providers Care Sales Review Clerk Name Role Phone Robert Hathaway DO Primary Care Provider [phone] Reason for Visit * Reason Comments Med Refill Encounter Details Date Type Department Care Team (Late st Contact Info) Description 08/22/2023 Refill [facility] Internal Medicine - Family Medicine [address] [place] [address] Robert Hathaway DO [address] [facility] [place], [place] [phone] Chronic bilateral low back pain with sciatica, sciatica laterality unspecified; Anxiety state Social History Tobacco Use Types Packs/Day Years Used Date Smoking Tobacco: Former Cigarettes 0.8 35 0 04/15/1988 - 04/15/2023 Smokeless Tobacco: Never Comments:Smoke 1 PPD x 10 ye ars Alcohol Use Standard Drinks/Week Comments Not Currently 0 (1 standard drink = 0.6 oz pur e alcohol) [facility] Utilities Answer Date Recorded In the past 12 months has [employer], gas, oil, or water company threatened [...] often do you attend chur ch or yarsani services? Never 01/24/2023 Do you belong to any clubs o r organizations such as mu-ism groups, unions, fraternal or athletic groups, or [...] Answer Date Recorded Total Score 0 06/20/2023 [facility] of Occupat ional Health - Occupational Stress [...] Recorded Do you need help finding a [facility] career center and/or a training program? No [...] encounter Miscellaneous Notes * Telephone Encounter - Robert Hathaway DO - 08/22/2023 5:00 PM EST Too soon for refill documented in this encounter Plan of Treatment Upcoming Encounters Date Type Department Care Team (Late st Contact Info) Description 06/17/2025 1:30 PM EDT Office Visit [facility] Internal Medicine - Family Medicine [address] [place] [address] Robert Hathaway DO [address], [facility] [place] [address] documented as of this encounter Visit Diagnoses Diagnosis Chronic bilateral low back pain with sciatica, sciatica laterality unspecified Anxiety state Anxiety state, unspecified documented in this encounter Additional Health Concerns Assessment Noted Time PHQ-9 Depression Total Score: 0 06/20/20 23 1:56 PM EDT A Body Mass Index follow-up plan has been documented for the patient 07/10/2023 3:34 PM EST documented as of this encounter Care Teams Sales Review Clerk Relationship Specialty Start Date End Date Robert Hathaway DO [address] [place] [address] PCP - General Family Medicine 05/10/22 documented as of this encounter
--- OUTSIDE RECORDS SUMMARY | 2025-05-03 14:26 | XMS_ITS | Encounter Summary ---
Author Organization [facility] Address [address] [place] [address] Care Team Providers Care Business Performance Analyst Name Role Phone Robert Hathaway MD Primary Care Provider + [phone] Robert Hathaway MD Primary Care Provider + [phone] Reason for Visit * Reason Comments Med Refill Encounter Details Date Type Department Care Team (Late st Contact Info) Description 11/21/2023 [facility]ill [facility] [address] [place] [phone] David Villalobos DO [address] [place] [address] Localized osteoporosis, unspecified pathological fracture presence Social History Tobacco Use Types Packs/Day Years Used Date Smoking Tobacco: Every Day Cigarettes Passive Smoke Exposure: Current Smokeless Tobacco: Never Alcohol Use Standard Drinks/Week Comments Not Currently 0 (1 standard drink = 0.6 oz pure alcohol) caffeine intake: 1-2 cups per day Comments Unknown Sex and Gender Information Value Date Recorded Sex Assigned at Female 03/24/2024 7:44 PM EDT Legal Sex Female 6:42 PM EDT Gender Identity Female 03/24/2024 7:44 PM EDT Sexual Orientation Not on file documented as of this encounter Miscellaneous Notes * Telephone Encounter - Aria King LPN - 11/21/2023 4:23 PM EDT Approving, but needs appt for additional refills. documented in this encounter Plan of Treatment Upcoming Encounters Date Type Department Care Team (Late st Contact Info) Description 06/10/2025 2:00 PM EDT Office Visit [facility] [address] [place] [address] Carlos Sanchez MD [address] [facility] [address] [address] documented as of this encounter Visit Diagnoses Diagnosis Localized osteoporosis, unspecified pathological fracture presence documented in this encounter Care Teams Business Performance Analyst Relationship Specialty Start Date End Date Robert Hathaway MD PCP - General Family Medicine 07/24/23 11/18/24 Robert Hahtaway MD [address] [place] [address] PCP - General Family Medicine 11/19/24 documented as of this encounter
--- OUTSIDE RECORDS SUMMARY | 2025-05-03 14:26 | XMS_ITS | Encounter Summary ---
Author Organization [email or web address] s tem Address [id number] [address] [place] [address] Care Team Providers Care Second Cook And Baker Name Role Phone Robert Hathaway Primary Care Provider +1 [phone] Encounter Details Date Type Department Care Team (Late st Contact Info) Description 07/25/2023 Telephone [facility] Internal Medicine - Family Medicine [address] [place] [phone] Ramona Silva CMA Social History Tobacco Use Types Packs/Day Years Used Date Smoking Tobacco: Former Cigarettes 0.8 35 0 04/15/1988 - 04/15/2023 Smokeless Tobacco: Never Comments:Smoke 1 PPD x 10 ye ars Alcohol Use Standard Drinks/Week Comments Not Currently 0 (1 standard drink = 0.6 oz pur e alcohol) [facility] Utilities Answer Date Recorded In the past 12 months has [employer], gas, oil, or water [employer] threatened to shut off services in your [...] often do you attend chur ch or shinto services? Never 01/24/2023 Do you belong to any clubs o r organizations such as shinto groups, unions, fraternal or athletic groups, or [...] Answer Date Recorded Total Score 0 06/20/2023 [facility] - Occupational Stress Questionnaire Answer Date Recorded [...] Recorded Do you need help finding a [facility] career center and/or a training [...] Telephone Encounter - Ramona Silva CMA - 07/25/2023 4:17 PM EST I called pt and let her know her results. She understood and was wondering if you could send her insome tramadol for Pain. Pharmacy is listed and correct. She would like the Referral. * Telephone Encounter - Robert Hathaway DO - 07/25/2023 4:17 PM EST She has misused opioids in the past so I am not comfortable giving her an opioid right now but we did discuss low-dose naltrexone which buderer compounds. Her drug screen was negative so as long as she has not taken any opioid since then it would be safe for her to try. * Telephone Encounter - Ramona Silva CMA - 07/25/2023 4:17 PM EST I called pt and let her know. She is just going to wait for right now. documented in this encounter Plan of Treatment Upcoming Encounters Date Type Department Care Team (Late st Contact Info) Description 06/17/2025 1:30 PM EDT Office Visit [facility] - Family Medicine [address] [place] [address] Robert Hathaway DO [address] [facility] [place] [place] [address] documented as of this encounter Visit Diagnoses Not on filedocumented in this encounter Additional Health Concerns Assessment Noted Time PHQ-9 Depression Total Score: 0 06/20/20 23 1:56 PM EDT A Body Mass Index follow-up plan has been documented for the patient 07/10/2023 3:34 PM EST documented as of this encounter Care Teams Second Cook And Baker Relationship Specialty Start Date End Date Robert Hathaway DO [address] [facility] [place] [address] PCP - General Family Medicine 05/10/22 documented as of this encounter
--- OUTSIDE RECORDS SUMMARY | 2025-05-03 14:26 | XMS_ITS | Clinical Summary ---
Author Organization [facility] Address [address] [place] [address] Care Team Providers Care Radioactivity Technician Name Role Phone Unavailable Primary Care Provider Unavailabl e Allergies Active Allergy Reactions Criticality Noted Date Comments Adhesive Tape (Rosins) Rash 02/28/2015 rash Amitriptyline Mental Status Change 02/28/2015 hallucinate Amoxicillin Vomiting 02/28/2015 Atomoxetine Hcl Other: See Comments Medium 02/28/2015 palpitations Bupropion Hcl Other: See Comments Medium 02/28/2015 palpitations Codeine Hives High 02/28/2015 Dexamethasone Unknown 02/28/2015 Doxycycline Other: See Comments Medium 02/28/2015 palpitations Fish Derived Hives High 02/28/2015 Fluticasone Propion-Salmeterol Unknown 02/28/2015 Pregabalin Mental Status Change 02/28/2015 hallucinate Methadone Vomiting 02/28/2015 Moxifloxacin-Sod.Chloride (Iso) Unknown 02/28/2015 Penicillins Vomiting 02/28/2015 Topiramate Unknown 02/28/2015 Ketorolac Other: See Comments 02/28/2015 Abdominal pain Oxcarbazepine Other: See Comments Medium 02/28/2015 palpitations Verapamil Vomiting 02/28/2015 Ziprasidone Hcl Other: See Comments Medium 02/28/2015 palpitations Medications ARIPiprazole (ABILIFY) 15 mg tabletIndications:Lum bago,Left shoulder pain,History of fibromyalgia,History of COPD,History of gastroesophageal reflux (GERD),History of anxiety disorder,History of depression,History of attention deficit hyperactivity disorder (ADHD),History of bipolar disorder,Chronic, continuous use of opioids Take 30 mg by mouth once daily. In AM Active CLOMIPRAMINE HCL (ANAFRANIL ORAL)Indications:Lumb ago,Left shoulder pain,History of fibromyalgia,History of COPD,History of gastroesophageal reflux (GERD),History of anxiety disorder,History of depression,History of attention deficit hyperactivity disorder (ADHD),History of bipolar disorder,Chronic, continuous use of opioids Take 150 mg by mouth daily at bedtime. Active Omeprazole (PRILOSEC) 40 mg capsuleIndications:Quyen mbago,Left shoulder pain,History of fibromyalgia,History of COPD,History of gastroesophageal reflux (GERD),History of anxiety disorder,History of depression,History of attention deficit hyperactivity disorder (ADHD),History of bipolar disorder,Chronic, continuous use of opioids Take 40 mg by mouth once daily. In AM Active Cetirizine (ZYRTEC) 10 mg capIndications:Lumbag o,Left shoulder pain,History of fibromyalgia,History of COPD,History of gastroesophageal reflux (GERD),History of anxiety disorder,History of depression,History of attention deficit hyperactivity disorder (ADHD),History of bipolar disorder,Chronic, continuous use of opioids Take 10 mg by mouth once daily. In AM Active simvastatin (ZOCOR) 40 mg tabletIndications:Lum bago,Left shoulder pain,History of fibromyalgia,History of COPD,History of gastroesophageal reflux (GERD),History of anxiety disorder,History of depression,History of attention deficit hyperactivity disorder (ADHD),History of bipolar disorder,Chronic, continuous use of opioids Take 40 mg by mouth daily at bedtime. Active promethazine (PHENERGAN) 25 mg tabletIndications:Lum bago,Left shoulder pain,History of fibromyalgia,History of COPD,History of gastroesophageal reflux (GERD),History of anxiety disorder,History of depression,History of attention deficit hyperactivity disorder (ADHD),History of bipolar disorder,Chronic, continuous use of opioids Take 25 mg by mouth as needed. Active montelukast (SINGULAIR) 10 mg tabletIndications:Lum bago,Left shoulder pain,History of fibromyalgia,History of COPD,History of gastroesophageal reflux (GERD),History of anxiety disorder,History of depression,History of attention deficit hyperactivity disorder (ADHD),History of bipolar disorder,Chronic, continuous use of opioids Take 10 mg by mouth daily at bedtime. Active dicyclomine (BENTYL) 20 mg tabletIndications:Lum bago,Left shoulder pain,History of fibromyalgia,History of COPD,History of gastroesophageal reflux (GERD),History of anxiety disorder,History of depression,History of attention deficit hyperactivity disorder (ADHD),History of bipolar disorder,Chronic, continuous use of opioids Take 20 mg by mouth every 6 hours as needed. Active pramipexole (MIRAPEX) 1.5 mg tabletIndications:Lum bago,Left shoulder pain,History of fibromyalgia,History of COPD,History of gastroesophageal reflux (GERD),History of anxiety disorder,History of depression,History of attention deficit hyperactivity disorder (ADHD),History of bipolar disorder,Chronic, continuous use of opioids Take 1.5 mg by mouth daily at bedtime. Active Loperamide HCl (IMODIUM) 2 mg tabIndications:Lumbag o,Left shoulder pain,History of fibromyalgia,History of COPD,History of gastroesophageal reflux (GERD),History of anxiety disorder,History of depression,History of attention deficit hyperactivity disorder (ADHD),History of bipolar disorder,Chronic, continuous use of opioids Take 2 mg by mouth twice daily as needed. Active cholecalciferol (VITAMIN D-3) 5,000 unit tab Take 5,000 Units by mouth once daily. Active thiamine (VITAMIN B-1) 100 mg tablet Take 100 mg by mouth once daily. Active calcium carbonate/vitamin D3 (CALCIUM 500 + D, D3, ORAL) Take by mouth one time a week. Active hydrOXYzine HCl (ATARAX) 50 mg tablet Take 50 mg by mouth every 6 hours as needed. Active meclizine (ANTIVERT) 25 mg tab Take 25 mg by mouth three times daily as needed. Active Active Problems Problem Noted Date Diagnosed Date Chronic, continuous use of opioids 02/28/2015 History of bipolar disorder 02/28/2015 History of attention deficit hyperactivity disor tania (ADHD) 02/28/2015 History of depression 02/28/2015 History of anxiety disorder 02/28/2015 History of gastroesophageal reflux (GERD) 2014 History of COPD 02/28/2015 History of fibromyalgia 02/28/2015 Left shoulder pain 02/28/2015 Lumbago 02/28/2015 Family History Medical History Relation Comments Alcohol/Drug Father Cancer Mother ovarian Diabetes Mother Psychiatry Mother Relation Status Comments Brother 1 Alive Brother 2 Alive Brother 3 Alive Father Mother Social History Tobacco Use Types Packs/Day Years Used Date Smoking Tobacco: Every Day Cigarettes Smokeless Tobacco: Never Tobacco Cessation:Ready to Q uit: No; Counseling Given: No Comments:Vaporization also. started to smoke at 12 Alcohol Use Standard Drinks/Week Comments No 0 (1 standard drink = 0.6 oz pur e alcohol) Area Deprivation Index Answer Date Tanvir rded National Score (1-100), lower number is lower ri sk Not on file 07/27/2020 State Score (1-10), lower number is lower risk N ot on file 07/27/2020 Data from: https://www.neighborhoodatlas.medicine.[facility]/. Last address used for calculation Not on file 07/27/2020 Comments No Sex and Gender Information Value Date Recorded Sex Assigned at Not on file Legal Sex Female 11:01 AM EDT Gender Identity Not on file Sexual Orientation Not on file Occupation Industry Job Start Date Job End Date unemployed on SSI Not on file Not on file Not on nader e Last Filed Vital Signs Vital Sign Reading Time Taken Comments Blood Pressure 126/70 06/30/2020 1:31 PM EST Pulse 82 06/27/2021 2:16 PM EST Temperature 36.3 C (97.3 F) 06/27/2021 2:16 PM EST Respiratory Rate 16 03/25/2015 12:58 PM EDT Oxygen Saturation 93% 06/27/2021 2:16 PM EST Inhaled Oxygen Concentration - - Weight 76.2 kg (168 lb) 06/30/2020 1:31 PM EST Height 162.6 cm (5' 4 ) 06/30/2020 1:31 PM EST Body Mass Index 28.84 06/30/2020 1:31 PM EST Plan of Treatment Health Maintenance Due Date Last Done Comments Anxiety Screening 1988 Depression Screening 1988 HIV Screening 1988 Hepatitis C Screening 1988 DTaP,Tdap,Td Vaccine (1 - Tdap) 1989 Hepatitis B Vaccine (1 of 3 - 19+ 3-dose series) 07/28 Cervical Cancer Screening [address] Colonography 2015 Cologuard (FIT-DNA) 2015 Fecal Occult Blood 2015 Lipid Screening 2015 Sigmoidoscopy 2015 Pneumococcal Vaccine: 50+ (1 of 1 - PCV) 2020 Shingrix Vaccine (1 of 2) 2020 Colonoscopy 03/14/2021 03/14/2020 Colorectal Cancer Screening 03/14/2021 Diabetes Screening 09/27/2021 09/27/2018 Influenza Vaccine (#1) 2025 04/15/2020 Insurance [employer]
--- OUTSIDE RECORDS SUMMARY | 2025-05-03 14:26 | XMS_ITS | Encounter Summary ---
Author Organization [facility] Address [id number] [address] [place] [address] Care Team Providers Care Inspector Machine Parts Name Role Phone Robert Hathaway Primary Care Provider + [phone] Reason for Visit * Reason Comments Med Refill Encounter Details Date Type Department Care Team (Late st Contact Info) Description 08/17/2024 Refill [facility] - Family Medicine [address] [place] [address] Megha Enciso, FLOOR CARE SPECIALIST-ANALYST SALES [address] [place] [address] Social History Tobacco Use Types Packs/Day Years Used Date Smoking Tobacco: Every Day Cigarettes 0.8 35 Started: 04/15/1988; Last attempted to quit: 04/15/2023 Smokeless Tobacco: Never Alcohol Use Standard Drinks/Week Comments Not Currently 0 (1 standard drink = 0.6 oz pur e alcohol) [facility] Utilities Answer Date Recorded In the past 12 months has [employer], gas, oil, or water company threatened [...] often do you attend chur ch or hindu services? Never 01/24/2023 Do you belong to any clubs o r organizations such as mosque groups, unions, fraternal or athletic groups, or [...] Answer Date Recorded Total Score 0 04/30/2024 [facility] [place] of Occupat ional Health - Occupational Stress [...] Recorded Do you need help finding a [facility] career center and/or a training program? [...] encounter Miscellaneous Notes * Telephone Encounter - YI Lozada - 08/17/2024 5:25 PM EST refill documented in this encounter Plan of Treatment Upcoming Encounters Date Type Department Care Team (Late st Contact Info) Description 06/17/2025 1:30 PM EDT Office Visit [facility] - Family Medicine [address] [place] [address] Robert Hathaway DO [address] [place] [address] documented as of this encounter Visit Diagnoses Not on filedocumented in this encounter Additional Health Concerns Assessment Noted Time PHQ-9 Depression Total Score: 0 04/30/20 24 1:58 PM EDT A Body Mass Index follow-up plan has been documented for the patient 07/10/2023 3:34 PM EST documented as of this encounter Care Teams Inspector Machine Parts Relationship Specialty Start Date End Date Robert Hathaway DO [address] [place] [place] [address] PCP - General Family Medicine 05/10/22 documented as of this encounter
--- OUTSIDE RECORDS SUMMARY | 2025-05-03 14:26 | XMS_ITS | Encounter Summary ---
Author Organization [facility] Sys tem Address [id number] [address] [place] [address] Care Team Providers Care National Business Director Name Role Phone Robert Hathaway Primary Care Provider +[phone] Encounter Details Date Type Department Care Team (Late st Contact Info) Description 08/27/2024 Orders Only [facility] - Family Medicine [address] [place] [address] Ref Prov, [place] [address] Social History Tobacco Use Types Packs/Day Years Used Date Smoking Tobacco: Every Day Cigarettes 0.8 35 Started: 04/15/1988; Last attempted to quit: 04/15/2023 Smokeless Tobacco: Never Alcohol Use Standard Drinks/Week Comments Not Currently 0 (1 standard drink = 0.6 oz pur e alcohol) [facility] Utilities Answer Date Recorded In the past 12 months has [employer], gas, oil, or water [employer] threatened to shut off services in your [...] 01/24/2023 How often do you attend chur or samaritan services? Never 01/24/2023 Do you belong to any clubs o r organizations such as adventist groups, unions, fraternal or athletic groups, or [...] Answer Date Recorded Total Score 0 04/30/2024 [facility] of Occupat ional Health - Occupational Stress [...] Recorded Do you need help finding a l ocal career center and/or a training program? No [...] - Family Medicine [address] [place] [address] Robert Hathaway DO [address] [facility] [place] [address] documented as of this encounter Procedures Procedure Name Priority Date/Time Associated Diagnosis Comments DEXA SCAN CENTRAL SKELETAL Routine 08/27/2024 4:39 PM EST documented in this encounter Results * Dexa scan central skeletal (08/27/2024 4:39 PM EST) Anatomical Region Laterality Modality N/A Radiographic Marquita ging us Not In System Ref Prov IMG DXA ORDERABLES Final Result documented in this encounter Visit Diagnoses Not on filedocumented in this encounter Additional Health Concerns Assessment Noted Time PHQ-9 Depression Total Score: 0 04/30/20 24 1:58 PM EDT A Body Mass Index follow-up plan has been documented for the patient 07/10/2023 3:34 PM EST documented as of this encounter Care Teams National Business Director Relationship Specialty Start Date End Date Robert Hathaway DO [address] [facility], [place] [address] PCP - General Family Medicine 05/10/22 documented as of this encounter
--- OUTSIDE RECORDS SUMMARY | 2025-05-03 14:26 | XMS_ITS | Encounter Summary ---
Author Organization [employer] tem Address [id number] [address] [place] [address] Care Team Providers Care Fiberglass Auto Body Repairer Name Role Phone Robert Hathaway Primary Care Provider +[phone] Encounter Details Date Type Department Care Team (Late st Contact Info) Description 09/02/2023 Telephone [facility] Internal Medicine - Family Medicine [address] [place] [phone] Simi Petty CMA Social History Tobacco Use Types Packs/Day Years Used Date Smoking Tobacco: Former Cigarettes 0.8 35 0 04/15/1988 - 04/15/2023 Smokeless Tobacco: Never Comments:Smoke 1 PPD x 10 ye ars Alcohol Use Standard Drinks/Week Comments Not Currently 0 (1 standard drink = 0.6 oz pur e alcohol) [facility] Utilities Answer Date Recorded In the past 12 months has [employer], gas, oil, or water [employer] threatened to shut off services in your [...] any clubs o r organizations such as druze groups, unions, fraternal or athletic groups, or [...] Answer Date Recorded Total Score 0 06/20/2023 [facility] of Occupat [facility] - Occupational Stress Questionnaire Answer Date [...] Recorded Do you need help finding a [facility] career center and/or a training program? [...] Telephone Encounter - Simi Petty CMA - 09/02/2023 9:08 AM EST Patient states you are not going to refill her xanax. Is there a reason why? * Telephone Encounter - Robert Hathaway DO - 09/02/2023 9:08 AM EST No. The refill request came in about 10 days to soon. I will send in a new prescription for her * Telephone Encounter - Simi Petty CMA - 09/02/2023 9:08 AM EST Spoke to patient and she is aware documented in this encounter Plan of Treatment Upcoming Encounters Date Type Department Care Team (Late st Contact Info) Description 06/17/2025 1:30 PM EDT Office Visit [facility] - Family Medicine [address] [place] [address] Robert Hathaway DO [address] [facility] [place] [address] documented as of this encounter Visit Diagnoses Not on filedocumented in this encounter Additional Health Concerns Assessment Noted Time PHQ-9 Depression Total Score: 0 06/20/20 1:56 PM EDT A Body Mass Index follow-up plan has been documented for the patient 07/10/2023 3:34 PM EST documented as of this encounter Care Teams Fiberglass Auto Body Repairer Relationship Specialty Start Date End Date Robert Hathaway DO [address] [facility], [place] [address] PCP - General Family Medicine 05/10/22 documented as of this encounter
--- OUTSIDE RECORDS SUMMARY | 2025-05-03 14:26 | XMS_ITS | Encounter Summary ---
Author [facility] Address [id number] [address] [place] [address] Care Team Providers Care Guide Winder Name Role Phone NellaRobert vila Pamela BYRNES Primary Care Provider Encounter Details Date Type Department Care Team (Late st Contact Info) Description 2024 [facility] [address] [facility] [address] [place] [address] Marsha Horan CMA Social History Tobacco Use Types Packs/Day Years Used Date Smoking Tobacco: Every Day Cigarettes 0.8 35 Started: 04/15/1988; Last attempted to quit: 04/15/2023 Smokeless Tobacco: Never Alcohol Use Standard Drinks/Week Comments Not Currently 0 (1 standard drink = 0.6 oz pur e alcohol) [facility] Utilities Answer Date Recorded In the past 12 months has [employer], gas, oil, or water [employer] threatened to shut off services in your [...] often do you attend chur ch or baptist services? Never 01/24/2023 Do you belong to any clubs o r organizations such as jehovah's witness groups, unions, fraternal or athletic groups, or [...] Answer Date Recorded Total Score 0 04/30/2024 [facility] of Occupat ional Health - Occupational Stress [...] Do you need help finding a [facility] career center and/or a training program? [...] Medicine - Family Medicine [address] [place] [address] Robert Hathaway DO [address] [facility] [place] [address] documented as of this encounter Visit Diagnoses Diagnosis Fibromyalgia Unspecified myalgia and myositis documented in this encounter Additional Health Concerns Assessment Noted Time PHQ-9 Depression Total Score: 0 04/30/20 24 1:58 PM EDT A Body Mass Index follow-up plan has been documented for the patient 07/10/2023 3:34 PM EST documented as of this encounter Care Teams Guide Winder Relationship Specialty Start Date End Date Robert Hathaway DO [address] [facility] [place] [address] PCP - General Family Medicine 05/10/22 documented as of this encounter
--- OUTSIDE RECORDS SUMMARY | 2025-05-03 14:26 | XMS_ITS | Encounter Summary ---
Author Organization [facility] Address [address] [facility] [place] [address] Care Team Providers Care Hard Metals Engraver Hand Name Role Phone Robetr Hathaway MD Primary Care Provider + [phone] Robert Hathaway MD Primary Care Provider + [phone] Reason for Visit * Reason Onset Date Comments Med Refill 11/15/2023 Encounter Details Date Type Department Care Team (Late Contact Info) Description 11/15/2023 Refill [facility] [address] [facility] [address] [place] [address] Martin House DPM [address] [facility] [address] [place] [address] Hav (hallux abducto valgus), right Social History Tobacco Use Types Packs/Day Years [...] Encounters Date Type Department Care Team (Late Contact Info) Description 06/10/2025 2:00 PM EDT Office Visit [facility] [address] [place] [phone] Carlos Sanchez MD [address] [facility] [address], [place] [address] documented as of this encounter Visit Diagnoses Diagnosis Hav (hallux abducto valgus), right documented in this encounter Care Teams Hard Metals Engraver Hand Relationship Specialty Start Date End Date Robert Hathaway MD PCP - General Family Medicine 07/24/23 11/18/24 Robert Hathaway MD [address] [place] [address] PCP - General Family Medicine 11/19/24 documented as of this encounter
--- OUTSIDE RECORDS SUMMARY | 2025-05-03 14:26 | XMS_ITS | Encounter Summary ---
Author Organization [facility] Address [address] [place] [address] Care Team Providers Care Ceramic Designer Name Role Phone Robert Hathaway MD Primary Care Provider [phone] Reason for Referral * Consultation (Routine) - Authorized Specialty Diagnoses / Procedures Referred By Contac t Referred To Contact Orthopaedic Surgery Diagnoses Primary osteoarthritis of left knee Arthritis of left knee Acute pain of left knee Jr. Jim Lerma DO [address] [place] [address] Phone: tel: fax: Lan Rubi MD [address] [place] [phone] Phone: tel: fax: Referral ID Status Reason Start Date Expiration Date Visits Requested Visits Authorized [id number] Authorized Specialty Services Required 04/21/2025 10/18/2025 1 1 Reason for Visit * Reason Onset Date Comments Referral 04/21/2025 Encounter Details Date Type Department Care Team (Late st Contact Info) Description 04/21/2025 Telephone [facility] [place] [place] [address] Alla Arce MA Referral Social History Tobacco Use Types Packs/Day Years [...] Telephone Encounter - Alla Arce MA - 04/21/2025 10:[address] Lerma and samantha discussed patient's case, and due to the amount of allergies and past health conditions, they are recommending a tertiary care center. Patient is requesting to go out to [facility], she has seen Dr. Rubi in the past. I am putting in the referral and told patient that she shouldexpect a call from them. documented in this encounter Plan of Treatment Upcoming Encounters Date Type Department Care Team (Late st Contact Info) Description 06/10/2025 2:00 PM EDT Office Visit [facility] [address] [place] [address] Carlos Sanchez MD [address] [facility] [address] [place] [address] Scheduled Referrals Name Type Priority Associated Diagnoses Orde r Schedule Ambulatory referral to Orthopaedic Surgery Outpatient Referral Routine Primary osteoarthritis of left knee Arthritis of left knee Acute pain of left knee Expected: 04/21/2025 (Approximate), Expires: 10/19/2025 documented as of this encounter Visit Diagnoses Diagnosis Primary osteoarthritis of left knee- Primary Arthritis of left knee Acute pain of left knee documented in this encounter Care Teams Ceramic Designer Relationship Specialty Start Date End Date Robert Hathaway MD [address] [facility], [facility], [facility] [place] [address] PCP - General Family Medicine 11/19/24 documented as of this encounter
--- OUTSIDE RECORDS SUMMARY | 2025-05-03 14:26 | XMS_ITS | Encounter Summary ---
Author Organization [facility] Sys tem Address [id number] [address] [place] [address] Care Team Providers Care Customer Relations Specialist Name Role Phone Robert Hathaway Primary Care Provider [phone] Encounter Details Date Type Department Care Team (Late st Contact Info) Description 07/10/2023 Orders Only [facility] Internal Medicine - Family Medicine [address] [place] [phone] Lary Soto CMA Cigarette smoker; Screening for lung cancer Social History Tobacco Use Types Packs/Day Years Used Date Smoking Tobacco: Former Cigarettes 0.8 35 0 04/15/1988 - 04/15/2023 Smokeless Tobacco: Never Comments:Smoke 1 PPD x 10 ye ars Alcohol Use Standard Drinks/Week Comments Not Currently 0 (1 standard drink = 0.6 oz pur e alcohol) [facility] Utilities Answer Date Recorded In the past 12 months has [employer], oil, or water [employer] threatened to shut off services in your [...] How often do you attend chur or jewish services? Never 01/24/2023 Do you belong to any clubs o r organizations such as confucianism groups, unions, fraternal or athletic groups, or [...] Answer Date Recorded Total Score 0 06/20/2023 [facility] of Occupat ional Health - Occupational [...] Recorded Do you need help finding a [facility] career center and/or a [...] - Family Medicine [address] [place] [address] Robert Hathaway DO [address], [facility] [place] [address] documented as of this encounter Procedures Procedure Name Priority Date/Time Associated Diagnosis Comments CT LOW DOSE LUNG SCREENING Routine 07/10/2023 12:11 PM EST Cigarette smoker Screening for lung cancer documented in this encounter Results * CT low dose lung screening (Annual) (07/10/2023 12:11 PM EST) Anatomical Region Laterality Modality Body, Lung, Chest, Body Covera C omputed Tomography us Robert Hathaway DO IMG CT ORDERABLES Final Resu lt documented in this encounter Visit Diagnoses Diagnosis Cigarette smoker Tobacco use disorder Screening for lung cancer documented in this encounter Additional Health Concerns Assessment Noted Time PHQ-9 Depression Total Score: 0 06/20/20 23 1:56 PM EDT A Body Mass Index follow-up plan has been documented for the patient 07/10/2023 3:34 PM EST documented as of this encounter Care Teams Customer Relations Specialist Relationship Specialty Start Date End Date Robert Hathaway DO [address] [place] [address] PCP - General Family Medicine 05/10/22 documented as of this encounter
--- OUTSIDE RECORDS SUMMARY | 2025-05-03 14:27 | XMS_ITS | Encounter Summary ---
[facility] Address [id number] [address] [place] [address] Care Team Providers Care Industrial Aerial Installer Name Role Phone Robert Hathaway DO Primary Care Provider [phone] Encounter Details Date Type Department Care Team (Late st Contact Info) Description 02/24/2025 Telephone [facility] Internal Medicine - Family Medicine [address] [place] [phone] Robert Hathaway DO [address] [facility], [facility] [place] [address] Social History Tobacco Use Types Packs/Day Years Used Date Smoking Tobacco: Former Cigarettes 0.8 36.5 0 04/15/1988 - 02/17/2025 Smokeless Tobacco: Never Alcohol Use Standard Drinks/Week Comments Not Currently 0 (1 standard drink = 0.6 oz pur e alcohol) [facility] Utilities Answer Date Recorded In the past 12 months has [employer], gas, oil, or water [employer] threatened to shut off services in your [...] week 01/24/2023 How often do you attend [facility] or nondenominational services? Never 01/24/2023 Do you belong to any clubs o r organizations such as confucianist groups, unions, fraternal or athletic groups, or [...] PHQ-2 Answer Date Recorded Total Score 0 02/24/2025 [facility] of Occupat ional Health - Occupational [...] Recorded Do you need help finding a [facility] career center and/or a training program? No 01/24/2023 Hunger Screening Answer Date Recorded Within the past 12 months we worried whether our food would run out before we got money to buy more. Never True 02/24/2025 Within the past 12 months th e food we bought just didn't last and we didn't have money to get more. Never True 02/24/2025 Purpose - Life Answer Date Recorded I have a purpose and direction in my life. Stron gly Agree 01/24/2023 Comments No Sex and Gender Information Value Date Recorded Sex Assigned at Not on file Legal Sex Female 11:58 AM EDT Gender Identity Not on file Sexual Orientation Not on file documented as of this encounter Miscellaneous Notes * Telephone Encounter - Martin Varghese - 02/24/2025 12:57 PM EDT Needs script sent to the Medicine shop for Needish Diabetic machine. * Telephone Encounter - Robert Hathaway DO - 02/24/2025 12:57 PM EDT I sent it in earlier but I will send it in again documented in this encounter Plan of Treatment Upcoming Encounters Date Type Department Care Team (Late st Contact Info) Description 06/17/2025 1:30 PM EDT Office Visit [facility] Internal Medicine - Family Medicine [address] [place] [address] Robert Hathaway DO [address] [facility] [place] [address] documented as of this encounter Visit Diagnoses Not on filedocumented in this encounter Additional Health Concerns Assessment Noted Time PHQ-9 Depression Total Score: 0 02/25/20 25 11:28 AM EDT A Body Mass Index follow-up plan has been documented for the patient 07/10/2023 3:34 PM EST documented as of this encounter Care Teams Industrial Aerial Installer Relationship Specialty Start Date End Date Robert Hathaway DO [address], [facility] [place] [address] PCP - General Family Medicine 05/10/22 documented as of this encounter
--- OUTSIDE RECORDS SUMMARY | 2025-05-03 14:27 | XMS_ITS | Encounter Summary ---
Author Organization [facility] Address [id number] [address] [place] [address] Care Team Providers Care Home Care Associate Name Role Phone Robert Hathaway DO Primary Care Provider [phone] Encounter Details Date Type Department Care Team (Late st Contact Info) Description 06/05/2023 Orders Only [facility] Internal Medicine - Family Medicine [address] [place] [address] Robert Hathaway DO [address] [facility], [facility] [place] [address] Social History Tobacco Use Types Packs/Day Years Used Date Smoking Tobacco: Every Day Cigarettes 0.8 35 Smokeless Tobacco: Never Alcohol Use Standard Drinks/Week Comments Not Currently 0 (1 standard drink = 0.6 oz pur e alcohol) Social Connection and Isolat ion Panel [NHANES] Answer Date Recorded In a typical week, how many times do you talk on the phone with family, friends, or neighbors? More than three times a week 01/24/2023 How often do you get togethe r with friends or relatives? More than three times a week 01/24/2023 How often do you attend chur ch or yazdanism services? Never 01/24/2023 Do you belong to any clubs o r organizations such as islam groups, unions, fraternal or athletic groups, or [...] food, housing, medical care, and heating? Not hard at all 01/24/2023 PHQ-2 Answer Date Recorded Total Score 0 06/06/2023 [facility] of Occupat ional Health - Occupational Stress [...] from medical appointments or from getting medications? No 03/2023 In the past 12 months, has l ack of transportation kept you from meetings, work, or from getting things needed for daily living? No 01/24/2023 Childcare Answer Date Recorded Do problems getting child ca re make it difficult for you to work or study? No 01/24/2023 Employment Answer Date Recorded Do you need help finding a ocal career center and/or a training program? No 01/24/2023 Purpose - Life Answer Date Recorded I [...] Medicine - Family Medicine [address] [place] [address] Robert Hathaway DO [address] [facility] [place] [address] documented as of this encounter Visit Diagnoses Not on filedocumented in this encounter Additional Health Concerns Assessment Noted Time PHQ-9 Depression Total Score: 0 05/06/20 23 1:25 PM EDT A Body Mass Index follow-up plan has been documented for the patient 01/02/2023 6:47 PM EDT documented as of this encounter Care Teams Home Care Associate Relationship Specialty Start Date End Date Robert Hathaway DO [address] [facility] [place] [address] PCP - General Family Medicine 05/10/22 documented as of this encounter
--- OUTSIDE RECORDS SUMMARY | 2025-05-03 14:27 | XMS_ITS | Encounter Summary ---
Author Organization [email or web address] Address [facility]-[id number] [address] [place] [address] Care Team Providers Care Transformer Assembly Supervisor Name Role Phone Robert Hathaway DO Primary Care Provider [phone] Reason for Visit * Reason Onset Date Comments Med Refill 04/18/2025 Encounter Details Date Type Department Care Team (Late st Contact Info) Description 04/18/2025 Refill [facility] Internal Medicine - Family Medicine [address] [place] [address] Robert Hathaway DO [address], [facility] [address] Complex tear of medial meniscus of left knee, sequela Social History Tobacco Use Types Packs/Day Years Used Date Smoking Tobacco: Former Cigarettes 0.8 36.5 0 04/15/1988 - 02/17/2025 Passive Smoke Exposure: Current Smokeless Tobacco: Never Alcohol Use Standard Drinks/Week Comments Not Currently 0 (1 standard drink = 0.6 oz pur e alcohol) [facility] Utilities Answer Date Recorded In the past 12 months has [employer], gas, oil, or water company threatened to [...] often do you attend chur ch or zoroastrian services? Never 01/24/2023 Do you belong to any clubs o r organizations such as restorationist groups, unions, fraternal or athletic groups, or [...] PHQ-2 Answer Date Recorded Total Score 0 03/16/2025 [facility] of Occupat ional Health - Occupational Stress [...] Recorded Do you need help finding a [facility] career center and/or a training program? No 01/24/2023 Hunger Screening Answer Date Recorded Within the past 12 months we worried whether our food would run out before we got money to buy more. Never True 03/16/2025 Within the past 12 months th e food we bought just didn't last and we didn't have money to get more. Never True 03/16/2025 Purpose - Life Answer Date Recorded I [...] Medicine - Family Medicine [address] [place] [address] Robert Hathaway DO [address] [facility] [facility] [place] [address] documented as of this encounter Visit Diagnoses Diagnosis Complex tear of medial meniscus of left knee, sequela documented in this encounter Additional Health Concerns Assessment Noted Time PHQ-9 Depression Total Score: 0 03/16/20 25 2:05 PM EDT A Body Mass Index follow-up plan has been documented for the patient 07/10/2023 3:34 PM EST documented as of this encounter Care Teams Transformer Assembly Supervisor Relationship Specialty Start Date End Date Robert Hathaway DO [address] [facility] [facility] [place] [address] PCP - General Family Medicine 05/10/22 documented as of this encounter
--- OUTSIDE RECORDS SUMMARY | 2025-05-03 14:27 | XMS_ITS | Encounter Summary ---
Author Organization [facility] Address [facility]-[id number] [address] [place] [address] Care Team Providers Care Openstack Cloud Consulting Architect Name Role Phone Robert Hathaway Primary Care Provider + [phone] Encounter Details Date Type Department Care Team (Late st Contact Info) Description 03/21/2023 Orders Only [facility] Internal Medicine - Family Medicine [address] [place] [address] External, Scanning Provider Social History Tobacco Use [...] often do you attend chur ch or druze services? Never 01/24/2023 Do you belong to any clubs o r organizations such as christian groups, unions, fraternal or athletic groups, or [...] PHQ-2 Answer Date Recorded Total Score 0 01/24/2023 [facility] of Occupat ional Health - Occupational [...] - Family Medicine [address] [place] [address] Robert Hathaway DO [address], [facility] [place] [address] documented as of this encounter Procedures Procedure Name Priority Date/Time Associated Diagnosis Comments XR LUMBAR SPINE AP, LATERAL, FLEXION AND EXTENSION ONLY Routine 03/21/2023 3:24 PM EDT documented in this encounter Results * X-ray spine lumbar ap, lateral, flexion and extension only (03/21/2023 3:24 PM EDT) Anatomical Region Laterality Modality MSK, Neuro, Spine, L-spine N/A Compu emeterio Radiography us Scanning Provider External IMG DIAGNOSTIC IMAGIN G ORDERABLES Final Result documented in this encounter Visit Diagnoses Not on filedocumented in this encounter Additional Health Concerns Assessment Noted Time PHQ-9 Depression Total Score: 0 01/25/20 23 2:02 PM EDT A Body Mass Index follow-up plan has been documented for the patient 01/02/2023 6:47 PM EDT documented as of this encounter Care Teams Openstack Cloud Consulting Architect Relationship Specialty Start Date End Date Robert Hathaway DO [address], [facility] [place] [address] PCP - General Family Medicine 05/10/22 documented as of this encounter
--- OUTSIDE RECORDS SUMMARY | 2025-05-03 14:27 | XMS_ITS | Encounter Summary ---
Author Organization [facility] Address [id number] [address] [place] [address] Care Team Providers Care Product Assurance Engineer Name Role Phone Robert Hathaway DO Primary Care Provider + [phone] Reason for Visit * Reason Onset Date Comments Med Refill 04/21/2025 Encounter Details Date Type Department Care Team (Late st Contact Info) Description 04/21/2025 Refill [facility] Internal Medicine - Family Medicine [address] [place] [address] Robert Hathaway DO [address], [facility] [place] [address] Anxiety Social History Tobacco Use Types Packs/Day Years Used Date Smoking Tobacco: Former Cigarettes 0.8 36.5 0 04/15/1988 - 02/17/2025 Passive Smoke Exposure: Current Smokeless Tobacco: Never Alcohol Use Standard Drinks/Week Comments Not Currently 0 (1 standard drink = 0.6 oz pur e alcohol) [facility] Utilities Answer Date Recorded In the past 12 months has [employer] electric, gas, oil, or water company threatened [...] often do you attend chur ch or anglican services? Never 01/24/2023 Do you belong to any clubs o r organizations such as sikhism groups, unions, fraternal or athletic groups, or [...] Answer Date Recorded Total Score 0 03/16/2025 [facility] of Occupat ional Health - Occupational [...] Recorded Do you need help finding a [facility] career center and/or a training [...] - Family Medicine [address] [place] [address] Robert Hathaway DO [address] [place] [address] documented as of this encounter Visit Diagnoses Diagnosis Anxiety Anxiety state, unspecified documented in this encounter Additional Health Concerns Assessment Noted Time PHQ-9 Depression Total Score: 0 03/16/20 25 2:05 PM EDT A Body Mass Index follow-up plan has been documented for the patient 07/10/2023 3:34 PM EST documented as of this encounter Care Teams Product Assurance Engineer Relationship Specialty Start Date End Date Robert Hathaway DO [address] [place] [address] PCP - General Family Medicine 05/10/22 documented as of this encounter
--- OUTSIDE RECORDS SUMMARY | 2025-05-03 14:27 | XMS_ITS | Encounter Summary ---
Author Organization [facility] Address [facility]-[id number] [address] [place] [address] Care Team Providers Care Project Controls Specialist Name Role Phone Robert Hathaway Primary Care Provider + [phone] Encounter Details Date Type Department Care Team (Late st Contact Info) Description 07/03/2023 Orders Only [facility] Internal Medicine - Family Medicine [address] [place] [address] External, Scanning Provider Social History Tobacco Use [...] Answer Date Recorded Total Score 0 06/20/2023 [facility] Occupat ional Health - [...] Recorded Do you need help finding a [facility] career center and/or a training program? No [...] - Family Medicine [address] [place] [address] Robert Hathaway DO [address] [facility] [address] documented as of this encounter Visit Diagnoses Not on filedocumented in this encounter Additional Health Concerns Assessment Noted Time PHQ-9 Depression Total Score: 0 06/20/20 23 1:56 PM EDT A Body Mass Index follow-up plan has been documented for the patient 01/02/2023 6:47 PM EDT documented as of this encounter Care Teams Project Controls Specialist Relationship Specialty Start Date End Date Robert Hathaway DO [address] [facility] [address] PCP - General Family Medicine 05/10/22 documented as of this encounter
--- OUTSIDE RECORDS SUMMARY | 2025-05-03 14:27 | XMS_ITS | Encounter Summary ---
Author Organization [facility] tem Address [facility]-[id number] [address] [place] [address] Care Team Providers Care Polymer Engineer Name Role Phone Robert Hathaway DO Primary Care Provider [phone] Encounter Details Date Type Department Care Team (Late st Contact Info) Description 04/01/2023 Orders Only [facility] Internal Medicine - Family Medicine [address] [place] [address] Robert Hathaway DO [address] [facility], [facility] [place] [address] Social History Tobacco Use Types Packs/Day Years [...] any clubs o r organizations such as orthodoxy groups, unions, fraternal or athletic groups, or [...] PHQ-2 Answer Date Recorded Total Score 0 04/04/2023 [facility] of Occupat ional Health - Occupational [...] Medicine - Family Medicine [address] [place] [address] Robert Hathaway DO [address] [facility] [address] documented as of this encounter Visit Diagnoses Not on filedocumented in this encounter Additional Health Concerns Assessment Noted Time PHQ-9 Depression Total Score: 0 01/25/20 23 2:02 PM EDT A Body Mass Index follow-up plan has been documented for the patient 01/02/2023 6:47 PM EDT documented as of this encounter Care Teams Polymer Engineer Relationship Specialty Start Date End Date Robert Hathaway DO [address] [facility] [address] PCP - General Family Medicine 05/10/22 documented as of this encounter
--- OUTSIDE RECORDS SUMMARY | 2025-05-03 14:27 | XMS_ITS | Encounter Summary ---
Author Organization [facility] Address [id number] [address] [place] [address] Care Team Providers Care Air Route Controller Name Role Phone Robert Hathaway DO Primary Care Provider + [phone] Reason for Visit * Reason Onset Date Comments Med Refill 03/07/2023 Encounter Details Date Type Department Care Team (Late st Contact Info) Description 03/07/2023 Refill [facility] Internal Medicine - Family Medicine [address] [place] [address] Robert Hathaway DO [address], [facility] [place] [address] Type 2 diabetes mellitus without complication, without long-term current use of insulin ([facility]) Social History Tobacco Use Types Packs/Day Years [...] often do you attend chur ch or christian services? Never 01/24/2023 Do you belong to any clubs o r organizations such as latter day groups, unions, fraternal or athletic groups, or [...] Answer Date Recorded Total Score 0 01/24/2023 [facility] of Occupat ional Health - [...] Medicine - Family Medicine [address] [place] [address] Robert Hathaway DO [address] [facility] [place] [address] documented as of this encounter Visit Diagnoses Diagnosis Type 2 diabetes mellitus without complication, without long-term current use of insulin ([facility]) documented in this encounter Additional Health Concerns Assessment Noted Time PHQ-9 Depression Total Score: 0 01/25/20 23 2:02 PM EDT A Body Mass Index follow-up plan has been documented for the patient 01/02/2023 6:47 PM EDT documented as of this encounter Care Teams Air Route Controller Relationship Specialty Start Date End Date Robert Hathaway DO [address] [facility] [place] [address] PCP - General Family Medicine 05/10/22 documented as of this encounter
--- OUTSIDE RECORDS SUMMARY | 2025-05-03 14:27 | XMS_ITS | Encounter Summary ---
Author Organization [facility] s tem Address [id number] [address] [place] [address] Care Team Providers Care Wet Wheeler Name Role Phone Robert Hathaway DO Primary Care Provider [phone] Encounter Details Date Type Department Care Team (Late st Contact Info) Description 07/02/2023 Telephone [facility] Internal Medicine - Family Medicine [address] [place] [id number] Robert Hathaway DO [address] [facility], [place] [address] Social History Tobacco Use Types Packs/Day Years [...] often do you attend chur ch or mormonism services? Never 01/24/2023 Do you belong to [...] Date Recorded Total Score 0 06/20/2023 [facility] - Occupational [...] Recorded Do you need help finding a [facility] and/or a training program? [...] encounter Miscellaneous Notes * Telephone Encounter - Esther Hilda - 07/02/2023 10:59 AM EST Pt is schedule for a MRI on SatJul 10. She is claustrophopic and would like to be able to take something to help her calm down and get through the test. Please advise * Telephone Encounter - Robert Hathaway DO - 07/02/2023 10:59 AM EST Ok. Rx sent in to take 1-2 hours before procedure. Someone has to drive her to test documented in this encounter Plan of Treatment Upcoming Encounters Date Type Department Care Team (Late st Contact Info) Description 06/17/2025 1:30 PM EDT Office Visit [facility] Internal Medicine - Family Medicine [address] [place] [address] Robert Hathaway DO [address], [place] [address] documented as of this encounter Visit Diagnoses Not on filedocumented in this encounter Additional Health Concerns Assessment Noted Time PHQ-9 Depression Total Score: 0 06/20/20 23 1:56 PM EDT A Body Mass Index follow-up plan has been documented for the patient 01/02/2023 6:47 PM EDT documented as of this encounter Care Teams Wet Wheeler Relationship Specialty Start Date End Date Robert Hathaway DO [address] [facility] [place] [address] PCP - General Family Medicine 05/10/22 documented as of this encounter
--- OUTSIDE RECORDS SUMMARY | 2025-05-03 14:27 | XMS_ITS | Encounter Summary ---
Author Organization [facility] Address [facility] [id number] [address] [place] [address] Care Team Providers Care Autism Specialist Name Role Phone Robert Hathaway DO Primary Care Provider [phone] Reason for Visit * Reason Onset Date Comments Med Refill 04/11/2025 Encounter Details Date Type Department Care Team (Late st Contact Info) Description 04/11/2025 Refill [facility] Internal Medicine - Family Medicine [address] [place] [address] Robert Hathaway DO [address], [facility] [place] [address] Complex tear of medial meniscus of left knee, sequela Social History Tobacco Use Types Packs/Day Years Used Date Smoking Tobacco: Former Cigarettes 0.8 36.5 0 04/15/1988 - 02/17/2025 Passive Smoke Exposure: Current Smokeless Tobacco: Never Alcohol Use Standard Drinks/Week Comments Not Currently 0 (1 standard drink = 0.6 oz pur e alcohol) [facility] Utilities Answer Date Recorded In the past 12 months has [employer], gas, oil, or water company threatened to [...] often do you attend chur ch or amish services? Never 01/24/2023 Do you belong to [...] Answer Date Recorded Total Score 0 03/16/2025 [facility] - Occupational Stress [...] Do you need help finding a [facility] career center and/or a training program? [...] Medicine - Family Medicine [address] [place] [address] Robert Hathaway DO [address] [facility] [facility] [place] [address] documented as of this encounter Visit Diagnoses Diagnosis Complex tear of medial meniscus of left knee, sequela documented in this encounter Additional Health Concerns Assessment Noted Time PHQ-9 Depression Total Score: 0 03/16/20 25 2:05 PM EDT A Body Mass Index follow-up plan has been documented for the patient 07/10/2023 3:34 PM EST documented as of this encounter Care Teams Autism Specialist Relationship Specialty Start Date End Date Robert Hathaway DO [address] [facility] [facility] [place] [address] PCP - General Family Medicine 05/10/22 documented as of this encounter
--- OUTSIDE RECORDS SUMMARY | 2025-05-03 14:27 | XMS_ITS | Clinical Summary ---
Author Organization [facility] Address [address] [place] [address] Care Team Providers Care Hadoop Admin Name Role Phone Robert Hathaway MD Primary Care Provider Allergies Active Allergy Reactions Criticality Noted Date Comments Aloe 08/28/2023 Facial numbness/tongue numbness Amitriptyline 10/08/2012 Other Reaction(s): Abnormal Behavior, Mental Status Change, other, Vomiting hallucinate Amoxicillin-Pot Clavulanate Nausea And Vomiting Low 05/01/2011 Other Reaction(s): GI Disturbance, Unknown, Vomiting Atomoxetine Palpitations Low 07/30/2019 Other Reaction(s): Other (See Comments), Unknown (atomoxetine) Atomoxetine Hcl Palpitations Medium 05/01/2011 Other Reaction(s): GI Disturbance, Other: See Comments palpitations Aloe-Sodium Chloride 08/28/2023 Facial numbness/tongue numbness Bupropion Palpitations Medium 05/01/2011 Other Reaction(s): GI Disturbance, other, Other: See Comments palpitations Codeine Hives,Rash High 05/01/2011 Other Reaction(s): Other, Unknown Dexamethasone 07/17/2012 Other Reaction(s): Hot flashes, other, Unknown Causes whole body to burn (dexamethasone) Doxycycline Palpitations Medium 05/01/2011 Other Reaction(s): GI Disturbance, Other, Other: See Comments, Unknown palpitations Duloxetine 07/30/2019 Duloxetine Hcl 02/25/2023 Other Reaction(s): Unknown Eicosapentaenoic Acid 03/13/2017 Fish Allergy Hives,Rash High 11/02/2011 Fish-Derived Products 11/02/2011 Fluticasone 08/06/2014 Other Reaction(s): other, Unknown Fluticasone-Salmeterol Itching,Palpitati ons ,Rash Low 10/08/2012 Other Reaction(s): Unknown Gabapentin Medium 07/30/2019 Other Reaction(s): Unknown Ibuprofen Nausea And Vomiting,Rash Low 11/02/2011 Other Reaction(s): GI Disturbance, Unknown Iodinated Contrast Media Anaphylaxis High 07/07/2024 Patient started to have SOB and felt faint Ketorolac 02/28/2015 Other Reaction(s): Other: See Comments Other reaction(s): Other: See Comments Abdominal pain Abdominal pain Ketorolac Tromethamine Hives 06/28/2011 Severe stomach cramping Meloxicam 07/30/2019 Other Reaction(s): Unknown Methadone Nausea And Vomiting Low 05/01/2011 Other Reaction(s): GI Disturbance, other, Vomiting, Vomiting Other reaction(s): Vomiting Methocarbamol 11/12/2022 Other Reaction(s): Other (See Comments), Unknown Milnacipran Hives 05/25/2022 Moxifloxacin Nausea Only,Rash Low 02/28/2015 Other Reaction(s): Unknown Moxifloxacin Hcl In Nacl 11/02/2011 Nitrofurantoin Hives,Rash Low 05/25/2022 Other Hives High 08/06/2014 Other Reaction(s): other Oxcarbazepine GI intolerance,Hives,Pa lpitations Medium 05/01/2011 palpitations Paroxetine Hives 02/07/2023 Penicillins Hives 11/02/2011 Other Reaction(s): GI Disturbance, Other (See Comments), Unknown, Vomiting, Vomiting, Vomiting Other Reaction(s): other Pregabalin Palpitations Low 10/08/2012 Other Reaction(s): Mental Status Change, other, Unknown hallucinate Ropinirole Medium 07/30/2019 Other Reaction(s): Altered mental status Other Reaction(s): Other Shellfish Allergy Rash,Hives High 11/02/2011 Other Reaction(s): rash Sulfamethoxazole 03/22/2022 Other Reaction(s): Other (See Comments), Unknown Sulfamethoxazole-Trimetho prim 07/30/2019 Other Reaction(s): Vomiting Topiramate GI intolerance 02/07/2023 Valproic Acid 07/30/2019 Other Reaction(s): Alopecia, Unknown Verapamil GI intolerance 02/28/2015 Wound Dressing Adhesive Rash Low 11/02/2011 Other Reaction(s): other Other Reaction(s): Other rash Other Reaction(s): Other (See Comments) rash Other Reaction(s): other Other Reaction(s): Other rash Ziprasidone Palpitations Low 05/01/2011 Other Reaction(s): other, Unknown Ziprasidone Hcl Hives,Palpitations Medium 08/06/2014 palpitations Medications albuterol (2.5 MG/3ML) 0.083% nebulizer solution Take 2.5 mg by nebulization every 6 (six) hours. Active Ventolin HFA 108 (90 Base) MCG/ACT inhaler Inhale 1 puff in the morning and 1 puff in the evening and 1 puff before bedtime. Active ALPRAZolam (Xanax) 1 MG tablet Take 1 mg by mouth as needed at bedtime for sleep. Active atorvastatin (Lipitor) 80 MG tablet Take 80 mg by mouth in the morning. 01/04/20 23 Active carvedilol (Coreg) 25 MG tablet Take 25 mg by mouth in the morning and 25 mg before bedtime. 01/04/20 23 Active ergocalciferol (Vitamin D2) 1.25 MG (39487 UT) capsule Take 1 capsule by mouth 1 (one) time per week. Active ondansetron (Zofran) 4 MG tablet TAKE 1 TABLET BY MOUTH EVERY 12 HOURS FOR 10 DAYS NEEDED FOR NAUSEA AND VOMITING 10/30/19 23 Active omeprazole (PriLOSEC) [address] capsule Take 1 capsule every day by oral route. 08/31/19 23 Active meclizine (Antivert) 25 MG tablet Take 25 mg by mouth 3 (three) times a day as needed. 07/02/20 22 Active cetirizine (ZyrTEC) 10 MG tablet Take 10 mg by mouth in the morning. Active furosemide (Lasix) 20 MG tablet Take 20 mg by mouth in the morning. Active loperamide (Imodium) 2 MG capsule TAKE 2 CAPSULES BY MOUTH AFTER 1ST LOOSE STOOL AND 1 CAPSULE AFTER EACH NEXT BOWEL MOVEMENT; DO NOT EXCEED 16MG (8 CAPSULES) IN 24 HOURS 12/21/19 23 Active montelukast (Singulair) 10 MG tablet Take 10 mg by mouth in the evening. Active metFORMIN (Glucophage) 500 MG tablet Take 500 mg by mouth in the morning. Take with meals. 05/06/20 23 Active Alcohol Swabs (Global Alcohol Prep Ease) 70 % pads APPLY 1 PAD TOPICALLY EVERY 14 (FOURTEEN) DAYS. 03/10/20 24 Active solifenacin (VESIcare) 10 MG tablet Take 10 mg by mouth Daily 03/27/20 24 Active nystatin (Mycostatin) 411418 UNIT/ML suspension TAKE 5ML BY MOUTH FOUR TIMES A DAY (MORNING, NOON, EVENING, BEDTIME) FOR 5 DAYS. 03/24/20 24 Active lidocaine (Lidoderm) 5 % patch PLACE 1 PATCH ON THE SKIN DAILY. REMOVE & DISCARD PATCH WITHIN 12 HOURS OR DIRECTED BY Active dilTIAZem CD (Cardizem CD) 120 MG 24 hr capsule Take 120 mg by mouth Daily 03/27/20 24 Active Continuous Glucose Transmitter (Dexcom G6 transmitter) misc 1 UNIT BY MISCELLANEOUS ROUTE EVERY 3 (THREE) MONTHS. 01/27/20 24 Active ARIPiprazole (Abilify) 15 MG tablet Take 15 mg by mouth Daily 03/27/20 24 Active alendronate (Fosamax) 70 MG tabletIndication s:Osteopenia after menopause TAKE ONE TABLET BY MOUTH ONCE WEEKLY 30 MINUTES BEFORE THE FIRST FOOD, BEVERAGE, OR MEDICINE OF THE DAY WITH PLAIN WATER 4 tablet 11 06/19/20 24 Active Continuous Glucose Sensor (FreeStyle Lilliam 2 Sensor) misc USE DIRECTED AND CHANGE EVERY 14 DAYS 07/24/20 24 Active EPINEPHrine (Epipen) 0.3 MG/0.3ML injection syringe INJECT 0.3MG INTO THE APPROPRIATE MUSCLE NEEDED FOR ALLERGIC REACTION UP TO 1 DOSE Active lidocaine (Xylocaine) 5 % ointmentIndicati ons:Lumbar radiculopathy,PH N (postherpetic neuralgia),Diabe tic peripheral neuropathy (HCC) APPLY TO THE AFFECTED AREA THREE TIMES DAILY NEEDED FOR PAIN 150 g 4 10/24/19 25 Active calcium carbonate 1500 (600 Ca) MG tabletIndication s:Localized osteoporosis, unspecified pathological fracture presence TAKE ONE TABLET BY MOUTH TWICE A DAY 60 tablet 11 12/19/19 25 Active Ajovy 225 MG/1.5ML auto-injectorInd ications:Intract able chronic migraine without aura and without status migrainosus INJECT 1 PEN (225 MG) UNDER THE SKIN EVERY 30 (THIRTY) DAYS 1.5 mL 12/20/19 026 Active doxepin (Silenor) 3 MG tabletIndication s:Primary insomnia Take 1 tablet (3 mg) by mouth at bedtime 30 tablet 2 02/26/20 25 Active Thiamine Mononitrate 100 MG tabletIndication s:Diabetic peripheral neuropathy (HCC) TAKE 1 TABLET BY MOUTH IN THE MORNING AND IN THE EVENING 60 tablet 11 03/22/20 25 Active Hospital, Clinic, or Other Facility Administered Medication Ordered Dose Route Frequency Start Date End Date Status lidocaine (Xylocaine) 5 % ointmentIndications:Lumbar radiculopathy TOP Once 09/16/2024 Active Active Problems Problem Noted Date Diagnosed Date Primary insomnia 02/26/2025 Onychomycosis 12/25/2024 Peripheral arterial disease 10/26/2024 Chronic pain of left knee 05/20/2024 Rheumatoid factor positive 05/18/2024 Diastolic dysfunction 04/08/2024 History of carpal tunnel surgery 04/08/2024 History of sinus surgery 04/08/2024 Hypokalemia 04/08/2024 Nicotine dependence, cigarettes, uncomplicated 0 04/08/2024 Carpal tunnel syndrome 03/10/2024 Enthesopathy of elbow 03/10/2024 Lesion of left ulnar nerve 03/10/2024 Benign paroxysmal positional vertigo due to bilateral vestibular disorder 01/20/2024 History of UTI 11/20/2023 OAB (overactive bladder) 10/03/2023 Gross hematuria 10/03/2023 Lesion of ulnar nerve, bilateral 07/08/2023 Abnormality of gait and mobility 07/01/2023 Lumbar degenerative disc disease 06/24/2023 Cubital tunnel syndrome, bilateral 06/20/2023 Cervical paraspinal muscle spasm 05/02/2023 Lumbar radiculopathy 05/02/2023 Restless leg syndrome 05/02/2023 Drug-induced parkinsonism 05/02/2023 Sacral contusion 04/04/2023 Lumbar strain, sequela 04/04/2023 Change in bowel habits 02/25/2023 Gastric foreign body 02/25/2023 Contracture, right ankle 02/25/2023 Colon polyp 02/25/2023 Diabetes 02/25/2023 Dizziness 02/25/2023 Urinary frequency 02/25/2023 Urge incontinence 02/25/2023 Flank pain 02/25/2023 Bilateral low back pain with sciatica 02/25/2023 Osteoporosis 02/25/2023 Osteopenia 02/25/2023 BMI 30.0-30.9,adult 02/25/2023 Nausea and vomiting 02/25/2023 Menopause 02/25/2023 Nocturia 02/25/2023 Incomplete emptying of bladder 02/25/2023 History of kidney stones 02/25/2023 Hemorrhoids 02/25/2023 Compression injury of nerve 02/25/2023 Overview (02/25/2023): pinched nerve in back also Family history of colorectal cancer 02/25/2023 Screen for colon cancer 02/25/2023 Dysuria 02/25/2023 Diabetes mellitus without complication Deformity of metatarsal 02/25/2023 Overweight 01/24/2023 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 early childhood director 01/03/2023 TMJ arthralgia 11/12/2022 Tertiary contraction of esophagus 11/12/2022 Tarsal tunnel syndrome 11/12/2022 Sleep apnea 11/12/2022 Overview (02/25/2023): does not use cpap any longerpt uses CPAP does not use cpap any longerpt uses CPAP does not use cpap any longerpt uses CPAP Plantar fasciitis, bilateral 11/12/2022 Personality disorder 11/12/2022 Downey's neuroma of both feet 11/12/2022 Loose stools 11/12/2022 Leukocytosis 11/12/2022 Mixed incontinence urge and stress 11/12/2022 Hyponatremia 11/12/2022 Hammer toes of both feet 11/12/2022 Gastric erosions 11/12/2022 Feeling of incomplete bladder emptying Gastritis 11/12/2022 Encounter for medication monitoring 10/22/2022 Altered bowel function 05/21/2022 Esophageal dysmotility 05/21/2022 Gastric bezoar 05/21/2022 Urethral stricture 05/21/2022 Stress incontinence of urine 05/21/2022 Sciatica 05/21/2022 Peripheral venous insufficiency 05/21/2022 Osteochondritis dissecans of right ankle 022 Obesity with body mass index 30 or greater 05/21 Incontinence 05/21/2022 History of renal calculi 05/21/2022 Dysphagia 05/21/2022 Difficulty walking 05/21/2022 Diabetic peripheral neuropathy 05/21/2022 Current smoker 10/10/2021 Overview (02/25/2023): Added secondary to documentation in Social History. Added secondary to documentation in Social History. Added secondary to documentation in Social History. Type 2 diabetes mellitus 10/10/2021 Irritable bowel syndrome with diarrhea Essential hypertension 10/10/2021 Attention deficit hyperactivity disorder 022 Borderline personality disorder 10/05/2021 Vertigo 10/05/2021 Neuropathy 10/05/2021 Posttraumatic stress disorder 10/05/2021 Obsessive-compulsive disorder 10/05/2021 Allergic rhinitis 09/14/2021 Xerostomia 12/14/2020 Parotid gland enlargement 12/14/2020 Fibromyalgia 04/12/2020 Chronic back pain 04/12/2020 Osteoarthritis 04/12/2020 Lumbar spondylosis 01/26/2020 Disorder of sacrum 01/26/2020 Lumbosacral spondylosis without myelopathy 09/08 Overview (02/25/2023): Added automatically from request for surgery [id number] Chronic, continuous use of opioids 02/28/2015 History of gastroesophageal reflux (GERD) 2014 History of fibromyalgia 02/28/2015 History of depression 02/28/2015 History of bipolar disorder 02/28/2015 History of COPD 02/28/2015 History of attention deficit hyperactivity disor tania (ADHD) 02/28/2015 History of anxiety disorder 02/28/2015 Gastroesophageal reflux disease 10/23/2013 Bipolar disorder 10/23/2013 Chronic obstructive lung disease 10/23/2013 Backache 10/23/2013 Mitral valve prolapse 10/23/2013 Kidney stone 10/23/2013 Generalized osteoarthritis 10/23/2013 Generalized anxiety disorder 10/23/2013 Fibromyositis 10/23/2013 Hyperlipidemia 10/23/2013 Bicipital tenosynovitis 10/22/2013 Overview (02/25/2023): LEFT Degenerative joint disease of shoulder region Overview (02/25/2023): BILATERAL Left shoulder pain 10/22/2013 Disorder of bursae of shoulder region 10/22/2013 Overview (02/25/2023): BILATERAL Headache 10/08/2012 Migraine 04/20/2012 Neck pain 09/20/2011 Leg pain, bilateral 09/20/2011 Anxiety state 05/01/2011 Anxiety 05/01/2011 Chronic depression 05/01/2011 Pain in limb 05/01/2011 Low back pain 05/01/2011 Encounters Date Type Department Care Team Description 04/21/2025 Telephone [facility] [address] [place] [phone] Alla Arce MA Referral 04/16/2025 Telephone [facility] [address] [place] [address] [facility] 03/23/2025 Telephone [facility] [address] [place] [phone] Jr. Jim Lerma, surgery clearance 03/22/2025 Refill [facility] [address] [address] Carlos Sanchez MD Diabetic peripheral neuropathy (HCC) (Primary Dx) 03/09/2025 10:55 AM EDT [facility] [place] [address] 03/09/2025 10:30 AM EDT Office Visit [facility] [place] [address] Jr. Jim Lerma, DO Arthritis of left knee (Primary Dx); Acute pain of left knee 03/09/2025 Bamboo flowsheet [facility] [address] [place] [phone] Jr. Jim Lerma, DO 03/09/2025 Travel 03/04/2025 1:10 PM EDT Office Visit [facility] [address] [place] [address] Martin House DPM Mild ankle sprain, right, initial encounter (Primary Dx); Diabetes 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 polyneuropathy, with long-term current use of insulin (HCC); Contracture of right ankle 03/04/2025 Bamboo flowsheet [facility] [address] [facility] [address] [place] [address] Martin House DPM 03/04/2025 Travel 02/25/2025 2:40 PM EDT Office Visit [facility] [address] [facility] [address] [place] [phone] Carlos Sanchez MD Intractable chronic migraine without aura and without status migrainosus (Primary Dx); Primary insomnia 02/25/2025 Bamboo flowsheet [facility] [address] [place] [phone] Carlos Sanchez MD 02/25/2025 Travel 02/24/2025 1:30 PM EDT Treatment [facility] [address] [facility] [address] [place] [address] Shmuel Hampton, RAMA Mild ankle sprain, right, initial encounter (Primary Dx) 02/24/2025 Bamboo flowsheet [facility] [place] [facility] [address] [place] [address] Shmuel Hampton, RAMA 02/24/2025 Travel 02/22/2025 2:30 PM EDT Treatment [facility] [place] [facility] [address] [facility] [address] [place] [address] Pablito Bailey, VICE PRESIDENT OF SOFTWARE ENGINEERING Mild ankle sprain, right, initial encounter (Primary Dx) 02/22/2025 Bamboo flowsheet [facility] [address] [place] [address] Pablito Bailey, VICE PRESIDENT OF SOFTWARE ENGINEERING 02/22/2025 Travel 02/15/2025 2:00 PM EDT Treatment [facility] [address] [place] [address] Pablito Bailey, VICE PRESIDENT OF SOFTWARE ENGINEERING Mild ankle sprain, right, initial encounter (Primary Dx) 02/15/2025 Bamboo flowsheet [facility] [place] [facility] [address] [facility] [address] [place] [address] Pablito Bailey, VICE PRESIDENT OF SOFTWARE ENGINEERING 02/15/2025 Travel 02/11/2025 1:30 PM EDT Evaluation [facility] [place] [facility] [address] [facility] [address] [place] [address] Gricelda Hammond, PT Mild ankle sprain, right, initial encounter (Primary Dx) 02/11/2025 Plan of Care Documentation [facility] [place] [facility] [address] [facility] [address] [place] [address] 02/11/2025 Bamboo flowsheet [facility] [place] [facility] [address] [facility] [address] [place] [address] Gricelda Hammond, PT 02/11/2025 Travel 02/09/2025 Telephone [facility] [address] [place] [address] Jena Vaz, OTOLARYNGOLOGIST Shabbir COLES submitted 02/08/2025 Telephone [facility] [place] [facility] [address] [facility] [address] [place] [address] Pablito Bailey, VICE PRESIDENT OF SOFTWARE ENGINEERING Cx PT today 02/04/2025 2:00 PM EDT Treatment [facility] [place] [facility] [address] [facility] [address] [place] [address] Pablito Bailey, VICE PRESIDENT OF SOFTWARE ENGINEERING Contusion of right shoulder, subsequent encounter (Primary Dx); Right shoulder pain, unspecified chronicity 02/04/2025 1:10 PM EDT Ancillary Procedure [facility] [address] [facility] [address] [place] [phone] 02/04/2025 1:00 PM EDT Office Visit [facility] [address] [facility] [address] [place] [phone] Martin House DPM Mild ankle sprain, right, initial encounter (Primary Dx); Paronychia, toe, right; Diabetes 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 polyneuropathy, with long-term current use of insulin ([facility]) 02/04/2025 Bamboo flowsheet [facility] [address] [facility] [address] [place] [phone] Martin House DPM 02/04/2025 Travel from Last 3 Months Immunizations Immunization Administration Dates Next Due Hep A, Adult 06/02/2019,11/21/2018 Influenza, Unspecified 06/24/2023,04/15/2020 SARS-COV-2 (COVID-19) vaccin e, mRNA, spike protein, LNP, PF, 50 mcg/0.5 mL 06/24/2023 Zoster, Recombinant 03/09/2024 Family History Medical History Relation Name Comments Alcohol abuse Father Diabetes Mother Relation Name Status Comments Father Mother Social History Tobacco Use Types Packs/Day Years Used Date Smoking Tobacco: Former Cigarettes 0.5 39.7 S tarted: 08/19/1985 Passive Smoke Exposure: Current Smokeless Tobacco: Never Tobacco Cessation:Counseling Given: Not Answered Alcohol Use Standard Drinks/Week Comments Not Currently [...] PM EDT Sexual Orientation Not on file Last Filed Vital Signs Vital Sign Reading Time Taken Comments Blood Pressure 122/76 02/25/2025 2:48 PM EDT Pulse 84 06/18/2024 3:01 PM EDT Temperature - - Respiratory Rate 16 03/04/2025 1:18 PM EDT Oxygen Saturation - - Inhaled Oxygen Concentration - - Weight 69.9 kg (154 lb) 03/04/2025 1:18 PM EDT Height 162.6 cm (5' 4 ) 03/04/2025 1:18 PM EDT Body Mass Index 26.43 03/04/2025 1:18 PM EDT Plan of Treatment Upcoming Encounters Date Type Department Care Team (Late st Contact Info) Description 06/10/2025 2:00 PM EDT [facility] [address] [place] [address] Carlos Sanchez MD [address] [facility] [address] [place] [address] [id number] Health Maintenance Due Date Last Done Comments CT Colonography 1970 FIT-DNA 1970 FIT 1970 FOBT 1970 Sigmoidoscopy 1970 Influenza Vaccine (#1) 2025 05/12/2024, 2022, 04/15/2020 Mammogram 09/29/2025 09/29/2024, 02/0 04/2024, 09/10/2022, Additional history exists Cervical Cancer Screening 07/29/2029 HPV/Cotest 07/29/2029 Pap Smear 07/29/2029 07/29/2024 Colonoscopy 01/17/2033 01/17/2023, 03/14/2020 Colorectal Cancer Screening 01/17/2033 Procedures Procedure Name Priority Date/Time Associated Diagnosis Comments XR ANKLE 3+ VIEWS RIGHT Routine 02/04/2025 1:07 PM EDT Mild ankle sprain, right, initial encounter MM TOMOSYNTHESIS SCREENING BI 09/29/2024 2:44 PM EST PAP SMEAR Routine 07/29/2024 12:00 AM EST from Last 3 Months or Most Recently Relevant to Health Maintenance Results * XR ankle 3+ views right (02/04/2025 1:07 PM EDT) Anatomical Region Laterality Modality Lower Extremities, Ankle Right Radiogr aphic Imaging Narrative 02/04/2025 1:14 PM EDT Imaging Result: Negative fractures visualized with notable large enthesophyte and notable hardware fixation to forefoot us Martin House DPM IMG XR PROCEDURES Final Res ult * MM TOMOSYNTHESIS SCREENING BI (09/29/2024 2:44 PM EST) Anatomical Region Laterality Modality Other 09/29/2024 2:44 PM EST Narrative 09/29/2024 2:45 [place] [address] Mammography Report Signed Patient: ROCK HERRERA MR#: [id number] : 1970 Acct:[id number] Age/Sex: 54 / F ADM Date: 09/29/24 Loc: MAMMO Attending Dr: David Villalobos D.O. Ordering Physician: David Villalobos D.O. Results: Date of Service: 09/29/24 Follow Up: Procedure(s): MM tomosynthesis screening BI Accession Number(s): [id number] cc: David Villalobos D.O.; Farida Vergara NP Patient Name: ROCK HERRERA MR#: [id number] : 1970 Exam Date: 09/29/2024 Ordering Doctor: [...] ovarian cancer at age 60. LOCATION: [facility] BREAST COMPOSITION: The breasts are heterogeneously dense,which [...] PALPABLE LUMP SHOULD BE BIOPSIED. Dictated by: Donny Coombs MD on 09/29/2024 at 14:43 Approved by: Donny Coomsb MD on 09/29/2024 at 14:44 Dictated By: Donny Coombs M.D. Signed By: 09/29/24 1445 DD/ 1444 TD/TT: City Marshal: Procedure Note Radiology, Radiologist, MD - 09/29/2024 [place] [address] Mammography Report Signed Patient: ROCK HERRERA JMR#: [id number] : 1970Acct:[id number] Age/Sex: 54 / FADM Date: 09/29/24 Loc: MAMMO Attending Dr: David Villalobos D.O. Ordering Physician: David Villalobos D.O.Results: Date of Service: 09/29/24Follow Up: Procedure(s): MM tomosynthesis screening BI Accession Number(s): [id number] cc: David Villalobos D.O.; Farida Vergara NP Patient Name: ROCK HERRERA MR#: [id number] : 1970 Exam Date: 09/29/2024 Ordering Doctor: DR David Villalobos . RADIOLOGY REPORT PROCEDURE: MM TOMOSYNTHESIS SCREENING BI COMPARISON: MM TOMOSYNTHESIS SCREENING BI, 09/27/2023. MG MAMMDIAGNOSTIC 3D TAJ CAD, 09/10/2022. INDICATIONS: Screening Calculator Name NCI Breast Cancer Risk Assessment Tool 5 Year Breast Cancer Risk 1.20% Lifetime Breast Cancer Risk 9.00% Personal Breast Cancer No Personal Ovarian Cancer No Treatments None Family Cancers Mother with ovarian cancer at age 60. LOCATION: [facility] BREAST COMPOSITION: The breasts are heterogeneously dense,which may obscure small masses. FINDINGS: DIAGNOSTIC CATEGORY 2--BENIGN FINDING. NO CHANGE FROM COMPARISON. Scattered benign-appearing calcifications are present. Scattered benign-appearing lymph nodes are present. RIGHT BREAST: No significant suspicious finding. LEFT BREAST: No significant suspicious finding. RECOMMENDATIONS: ROUTINE MAMMOGRAM AND CLINICAL EVALUATION IN 12 MONTHS. PLEASE NOTE: A NORMAL MAMMOGRAM DOES NOT EXCLUDE THE POSSIBILITY OFBREAST CANCER. A CLINICALLY SUSPICIOUS PALPABLE LUMP SHOULD BE BIOPSIED. Dictated by: Donny Coombs MD on 09/29/2024 at 14:43 Approved by: Donny Coombs MD on 09/29/2024 at 14:44 Dictated By: Donny Coombs M.D. Signed By:09/29/24 1445 DD/ 1444 TD/TT: City Marshal: us Generic External Data Provider [facility] Final Result * Pap Smear (07/29/2024 12:00 AM EST) Swab Cervical swab / Unknown us David Villalobos DO LAB CYTOLOGY ORDERABLES Final Re sult EXTERNAL LAB from Last 3 Months or Most Recently Relevant to Health Maintenance Insurance [facility] MEDICAID Care Teams Hadoop Admin Relationship Specialty Start Date End Date Robert Hathaway MD [address] [facility], [place] [address] PCP - General Family Medicine 11/19/24
--- OUTSIDE RECORDS SUMMARY | 2025-05-03 14:27 | XMS_ITS | Encounter Summary ---
Author Organization [employer] Address [facility] [id number] [address] [place] [address] Care Team Providers Care Senior Product Consultant Name Role Phone Robert Hathaway Primary Care Provider + [phone] Reason for Visit * Reason Onset Date Comments Med Refill 04/04/2023 Encounter Details Date Type Department Care Team (Late st Contact Info) Description 04/04/2023 Refill [facility] Internal [facility] - Family Medicine [address] [place] [phone] Simi Petty CMA Social History Tobacco Use [...] any clubs o r organizations such as anglican groups, unions, fraternal or athletic groups, or [...] Answer Date Recorded Total Score 0 04/04/2023 [facility] of Occupat ional Health - [...] Department Care Team (Late Contact Info) Description 06/17/2025 1:30 PM EDT Office Visit [facility] - Family Medicine [address] [place] [address] Robert Hathaway DO [address], [place] [address] documented as of this encounter Visit Diagnoses Not on filedocumented in this encounter Additional Health Concerns Assessment Noted Time PHQ-9 Depression Total Score: 0 04/04/20 23 2:22 PM EDT A Body Mass Index follow-up plan has been documented for the patient 01/02/2023 6:47 PM EDT documented as of this encounter Care Teams Senior Product Consultant Relationship Specialty Start Date End Date Robert Hathaway DO [address], [facility] [place] [address] PCP - General Family Medicine 05/10/22 documented as of this encounter
--- OUTSIDE RECORDS SUMMARY | 2025-05-03 14:27 | XMS_ITS | Encounter Summary ---
Author Organization [facility] Address [facility] [place]-[id number] [address] [place] [address] Care Team Providers Care Room Designer Name Role Phone Robert Hathaway DO Primary Care Provider + [phone] Reason for Visit * Reason Comments Med Refill Encounter Details Date Type Department Care Team (Late st Contact Info) Description 04/21/2025 Refill [facility] Medicine - Family Medicine [address] [place] [address] Robert Hathaway DO [address], [facility] [place] [address] Anxiety Social History Tobacco Use Types Packs/Day Years Used Date Smoking Tobacco: Former Cigarettes 0.8 36.5 0 04/15/1988 - 02/17/2025 Passive Smoke Exposure: Current Smokeless Tobacco: Never Alcohol Use Standard Drinks/Week Comments Not Currently 0 (1 standard drink = 0.6 oz pur e alcohol) [facility] Utilities Answer Date Recorded In the past 12 months has [employer], gas, oil, or water company threatened [...] often do you attend chur ch or evangelical services? Never 01/24/2023 Do you belong to any clubs o r organizations such as baptist groups, unions, fraternal or athletic groups, or [...] Answer Date Recorded Total Score 0 03/16/2025 [facility] of Occupat ional Health - Occupational Stress [...] - Family Medicine [address] [place] [address] Robert Hathaway DO [address] [facility] [place] [address] documented as of this encounter Visit Diagnoses Diagnosis Anxiety Anxiety state, unspecified documented in this encounter Additional Health Concerns Assessment Noted Time PHQ-9 Depression Total Score: 0 03/16/20 25 2:05 PM EDT A Body Mass Index follow-up plan has been documented for the patient 07/10/2023 3:34 PM EST documented as of this encounter Care Teams Room Designer Relationship Specialty Start Date End Date Robert Hathaway DO [address] [place] [address] PCP - General Family Medicine 05/10/22 documented as of this encounter
--- OUTSIDE RECORDS SUMMARY | 2025-05-03 14:27 | XMS_ITS | Encounter Summary ---
Author Organization [facility] Sys tem Address [id number] [address] [place] [address] Care Team Providers Care Stock Puller Name Role Phone Robert Hathaway DO Primary Care Provider +1 [phone] Encounter Details Date Type Department Care Team (Late st Contact Info) Description 05/24/2023 Orders Only [facility] Internal Medicine - Family Medicine [address] [place] [address] Robert Hathaway DO [address] [facility] [place] [address] Social History Tobacco Use Types Packs/Day Years [...] often do you attend chur ch or sikh services? Never 01/24/2023 Do you belong to any clubs o r organizations such as scientologist groups, unions, fraternal or athletic groups, or [...] PHQ-2 Answer Date Recorded Total Score 0 05/06/2023 [facility] of Occupat ional Health - [...] Medicine - Family Medicine [address] [place] [address] Robert Hathaway DO [address] [facility] [place] [address] documented as of this encounter Visit Diagnoses Not on filedocumented in this encounter Additional Health Concerns Assessment Noted Time PHQ-9 Depression Total Score: 0 05/06/20 23 1:25 PM EDT A Body Mass Index follow-up plan has been documented for the patient 01/02/2023 6:47 PM EDT documented as of this encounter Care Teams Stock Puller Relationship Specialty Start Date End Date Robert Hathaway DO [address] [facility] [place] [address] PCP - General Family Medicine 05/10/22 documented as of this encounter
--- OUTSIDE RECORDS SUMMARY | 2025-05-03 14:27 | XMS_ITS | Encounter Summary ---
Author Organization [employer] Address [facility]-[id number] [address] [place] [address] Care Team Providers Care Rotoformer Backtender Name Role Phone NellaRobert vila Primary Care Provider + [phone] Encounter Details Date Type Department Care Team (Late st Contact Info) Description 03/22/2025 Refill [facility] - Family Medicine [address] [place] [address] Amaris Hilton CMA Complex tear of medial meniscus of left knee, sequela Social History Tobacco Use Types Packs/Day Years Used Date Smoking Tobacco: Former Cigarettes 0.8 36.5 0 04/15/1988 - 02/17/2025 Passive Smoke Exposure: Current Smokeless Tobacco: Never Alcohol Use Standard Drinks/Week Comments Not Currently 0 (1 standard drink = 0.6 oz pur e alcohol) [facility] Utilities Answer Date Recorded In the past 12 months has [employer], gas, oil, or water [employer]) threatened to shut off services in your [...] How often do you attend chur or catholic services? Never 01/24/2023 Do you belong to any clubs o r organizations such as holiness groups, unions, fraternal or athletic groups, or [...] Answer Date Recorded Total Score 0 03/16/2025 [facility] of Occupat ional Health - [...] Recorded Do you need help finding a [place] [employer] career center and/or a training program? No [...] Internal Medicine - Family Medicine [address] [place] [address] Robert Hathaway DO [address] [facility] [place] [address] documented as of this encounter Visit Diagnoses Diagnosis Complex tear of medial meniscus of left knee, sequela documented in this encounter Additional Health Concerns Assessment Noted Time PHQ-9 Depression Total Score: 0 03/16/20 25 2:05 PM EDT A Body Mass Index follow-up plan has been documented for the patient 07/10/2023 3:34 PM EST documented as of this encounter Care Teams Rotoformer Backtender Relationship Specialty Start Date End Date Robert Hathaway DO [address] [facility] [place] [address] PCP - General Family Medicine 05/10/22 documented as of this encounter
--- OUTSIDE RECORDS SUMMARY | 2025-05-03 14:27 | XMS_ITS | Encounter Summary ---
Author Organization [facility] Address [facility][id number] [address] [place] [address] Care Team Providers Care Cardiopulmonary Technician And Eeg Tech Name Role Phone Robert Hathaway DO Primary Care Provider + [phone] Reason for Visit * Reason Onset Date Comments Med Refill 05/03/2025 Encounter Details Date Type Department Care Team (Late st Contact Info) Description 05/03/2025 Refill [facility] - Family Medicine [address] [place] [address] Robert Hathaway DO [address], [facility] [place] [address] Complex tear of medial meniscus of left knee, sequela Social History Tobacco Use Types Packs/Day Years Used Date Smoking Tobacco: Former Cigarettes 0.8 36.5 0 04/15/1988 - 02/17/2025 Passive Smoke Exposure: Current Smokeless Tobacco: Never Alcohol Use Standard Drinks/Week Comments Not Currently 0 (1 standard drink = 0.6 oz pur e alcohol) [facility] Utilities Answer Date Recorded In the past 12 months has [employer], gas, oil, or water company threatened to [...] often do you attend chur ch or orthodox services? Never 01/24/2023 Do you belong to any clubs o r organizations such as zoroastrian groups, unions, fraternal or athletic groups, or [...] 0 03/16/2025 [facility] [place] of Occupat ional Health - Occupational Stress [...] Recorded Do you need help finding a [facility] career center and/or a training [...] Telephone Encounter - Simi Petty CMA - 05/03/2025 9:34 AM EDT Patient wanted to know if it could be increased documented in this encounter Plan of Treatment Upcoming Encounters Date Type Department Care Team (Late st Contact Info) Description 06/17/2025 1:30 PM EDT Office Visit [facility] - Family Medicine [address] [place] [address] Robert Hathaway DO [address], [facility] [place] [address] documented as of this encounter Visit Diagnoses Diagnosis Complex tear of medial meniscus of left knee, sequela documented in this encounter Additional Health Concerns Assessment Noted Time PHQ-9 Depression Total Score: 0 03/16/20 25 2:05 PM EDT A Body Mass Index follow-up plan has been documented for the patient 07/10/2023 3:34 PM EST documented as of this encounter Care Teams Cardiopulmonary Technician And Eeg Tech Relationship Specialty Start Date End Date Robert Hathaway DO [address] [facility], [place] [address] PCP - General Family Medicine 05/10/22 documented as of this encounter
--- OUTSIDE RECORDS SUMMARY | 2025-05-03 14:27 | XMS_ITS | Encounter Summary ---
Author Organization [facility] Address [facility] [id number] [address] [place] [address] Care Team Providers Care Tar Processing Technician Name Role Phone Robert Hathaway DO Primary Care Provider + [phone] Reason for Visit * Reason Comments Med Refill Encounter Details Date Type Department Care Team (Late st Contact Info) Description 01/28/2023 Refill [facility] - Family Medicine [address] [place] [address] Robert Hathaway DO [address], [facility] [address] Social History Tobacco Use Types Packs/Day Years [...] often do you attend chur ch or oriental orthodox services? Never 01/24/2023 Do you belong [...] Answer Date Recorded Total Score 0 01/24/2023 [facility] [place] of Occupat ional Health - Occupational Stress [...] Medicine [address] [place] [address] Robert Hathaway DO [address] [facility] [place] [address] documented as of this encounter Visit Diagnoses Not on filedocumented in this encounter Additional Health Concerns Assessment Noted Time PHQ-9 Depression Total Score: 0 01/25/20 23 2:02 PM EDT A Body Mass Index follow-up plan has been documented for the patient 01/02/2023 6:47 PM EDT documented as of this encounter Care Teams Tar Processing Technician Relationship Specialty Start Date End Date Robert Hathaway DO [address] [facility] [place] [address] PCP - General Family Medicine 05/10/22 documented as of this encounter
--- OUTSIDE RECORDS SUMMARY | 2025-05-03 14:27 | XMS_ITS | Encounter Summary ---
Author Organization [employer] Sys tem Address [facility] [place]-[id number] [address] [place] [address] Care Team Providers Care Sports Recruiter Name Role Phone NellaRobert vila Primary Care Provider + [phone] Encounter Details Date Type Department Care Team (Late st Contact Info) Description 03/29/2025 Refill [facility] Medicine - Family Medicine [address] [place] [address] Ramona Silva CMA Complex tear of medial meniscus of left knee, sequela Social History Tobacco Use Types Packs/Day Years Used Date Smoking Tobacco: Former Cigarettes 0.8 36.5 0 04/15/1988 - 02/17/2025 Passive Smoke Exposure: Current Smokeless Tobacco: Never Alcohol Use Standard Drinks/Week Comments Not Currently 0 (1 standard drink = 0.6 oz pur e alcohol) [facility] Utilities Answer Date Recorded In the past 12 months has [employer], gas, oil, or water [employer] threatened to shut off services in your [...] How often do you attend chur or protestant services? Never 01/24/2023 Do you belong to any clubs o r organizations such as yazdanism groups, unions, fraternal or athletic groups, or [...] Answer Date Recorded Total Score 0 03/16/2025 [facility] of Occupat ional Health - [...] Telephone Encounter - Ramona Silva CMA - 03/29/2025 2:15 PM EDT Pt called and would like a refill on Tramdol documented in this encounter Plan of Treatment Upcoming Encounters Date Type Department Care Team (Late st Contact Info) Description 06/17/2025 1:30 PM EDT Office Visit [facility] Medicine - Family Medicine [address] [place] [address] Robert Hathaway DO [address], [place] [address] documented as of this encounter Visit Diagnoses Diagnosis Complex tear of medial meniscus of left knee, sequela documented in this encounter Additional Health Concerns Assessment Noted Time PHQ-9 Depression Total Score: 0 03/16/20 25 2:05 PM EDT A Body Mass Index follow-up plan has been documented for the patient 07/10/2023 3:34 PM EST documented as of this encounter Care Teams Sports Recruiter Relationship Specialty Start Date End Date Robert Hathaway DO [address], [place] [address] PCP - General Family Medicine 05/10/22 documented as of this encounter
--- OUTSIDE RECORDS SUMMARY | 2025-05-03 14:27 | XMS_ITS | Encounter Summary ---
Author Organization [facility] Address [id number] [address] [place] [address] Care Team Providers Care Adobe Cq Developer Name Role Phone Robert Hathaway DO Primary Care Provider + [phone] Reason for Visit * Reason Onset Date Comments Med Refill 04/25/2025 Encounter Details Date Type Department Care Team (Late st Contact Info) Description 04/25/2025 Refill [facility] Internal Medicine - Family Medicine [address] [place] [address] Robert Hathaway DO [address], [facility] [place] [address] Complex tear of medial meniscus of left knee, sequela Social History Tobacco Use Types Packs/Day Years Used Date Smoking Tobacco: Former Cigarettes 0.8 36.5 0 04/15/1988 - 02/17/2025 Passive Smoke Exposure: Current Smokeless Tobacco: Never Alcohol Use Standard Drinks/Week Comments Not Currently 0 (1 standard drink = 0.6 oz pur e alcohol) [facility] Utilities Answer Date Recorded In the past 12 months has [employer], gas, oil, or water company threatened to [...] often do you attend chur ch or jainism services? Never 01/24/2023 Do you belong to any clubs o r organizations such as gnosticist groups, unions, fraternal or athletic groups, or [...] Answer Date Recorded Total Score 0 03/16/2025 [facility] of Occupat ional Health - Occupational Stress [...] Recorded Do you need help finding a [facility] career center and/or a training [...] Medicine - Family Medicine [address] [place] [address] Robert Hathaway DO [address] [facility] [place] [address] documented as of this encounter Visit Diagnoses Diagnosis Complex tear of medial meniscus of left knee, sequela documented in this encounter Additional Health Concerns Assessment Noted Time PHQ-9 Depression Total Score: 0 03/16/20 25 2:05 PM EDT A Body Mass Index follow-up plan has been documented for the patient 07/10/2023 3:34 PM EST documented as of this encounter Care Teams Adobe Cq Developer Relationship Specialty Start Date End Date Robert Hathaway DO [address] [facility] [place] [address] PCP - General Family Medicine 05/10/22 documented as of this encounter
--- OUTSIDE RECORDS SUMMARY | 2025-05-03 14:27 | XMS_ITS | Encounter Summary ---
Author Organization [employer] Address [facility]-[id number] [address] [place] [address] Care Team Providers Care Bakery Worker Conveyor Line Name Role Phone Robert Hathaway Primary Care Provider + [phone] Encounter Details Date Type Department Care Team (Late st Contact Info) Description 04/05/2023 Telephone [facility] Internal Medicine - Family Medicine [address] [place] [address] Simi Petty CMA Social History Tobacco Use [...] often do you attend chur ch or yazidi services? Never 01/24/2023 Do you belong to any clubs o r organizations such as baptism groups, unions, fraternal or athletic groups, or [...] Answer Date Recorded Total Score 0 04/04/2023 [facility] Questionnaire Answer Date Recorded [...] a purpose and direction in my life. Stroandria gly Agree 01/24/2023 Comments No Sex and Gender Information Value Date Recorded Sex Assigned at Not on file Legal Sex Female 11:58 AM EDT Gender Identity Not on file Sexual Orientation Not on file documented as of this encounter Miscellaneous Notes * Telephone Encounter - Simi Petty CMA - 04/05/2023 11:10 AM EDT Pt called and stated her transmitter is bad and she is waiting for them to send a new one. Until then she will need her one touch test strips, lancets and alcohol swabs sent into the [facility] in [facility]. * Telephone Encounter - Robert Hathaway DO - 04/05/2023 11:10 AM EDT Have her wait till she gets a new transmitter. She does not take any medication for diabetes anymore so there is really no point in checking closely for a few days when we will not do anything about it any ways * Telephone Encounter - Simi Petty CMA - 04/05/2023 11:10 AM EDT Pt notified documented in this encounter Plan of Treatment Upcoming Encounters Date Type Department Care Team (Late st Contact Info) Description 06/17/2025 1:30 PM EDT Office Visit [facility] - Family Medicine [address] [place] [address] Robert Hathaway DO [address] [facility] [place] [address] documented as of this encounter Visit Diagnoses Not on filedocumented in this encounter Additional Health Concerns Assessment Noted Time PHQ-9 Depression Total Score: 0 04/04/20 23 2:22 PM EDT A Body Mass Index follow-up plan has been documented for the patient 01/02/2023 6:47 PM EDT documented as of this encounter Care Teams Bakery Worker Conveyor Line Relationship Specialty Start Date End Date Robert Hathaway DO [address] [facility] [place] [address] PCP - General Family Medicine 05/10/22 documented as of this encounter
--- OUTSIDE RECORDS SUMMARY | 2025-05-03 14:27 | XMS_ITS | Encounter Summary ---
Author Organization [facility] Sys tem Address [facility] [place]-[id number] [address] [place] [address] Care Team Providers Care Supervisor Microfilm Duplicating Unit Name Role Phone Robert Hathaway DO Primary Care Provider +[phone] Encounter Details Date Type Department Care Team (Late st Contact Info) Description 05/21/2023 Orders Only [facility] Internal Medicine - Family Medicine [address] [place] [address] Robert Hathaway DO [address] [facility] [place] [address] Social History Tobacco Use Types Packs/Day Years [...] often do you attend chur ch or restorationist services? Never 01/24/2023 Do you belong to [...] Answer Date Recorded Total Score 0 05/06/2023 [facility] of Occupat ional Health - [...] Family Medicine [address] [place] [address] Robert Hathaway DO [address] [place] [address] documented as of this encounter Procedures Procedure Name Priority Date/Time Associated Diagnosis Comments ECG 12-LEAD Routine 05/21/2023 3:11 PM EDT XR CHEST 1 VW Routine 05/18/2023 9:11 AM EDT documented in this encounter Results * ECG 12 lead (05/21/2023 3:11 PM EDT) us Scanning Provider External ECG ORDERABLES Final Result MANUALLY TRANSCRIBED RESULTS * X-ray chest 1 view (05/18/2023 9:11 AM EDT) Anatomical Region Laterality Modality Body, Chest N/A [...] documented as of this encounter Care Teams Supervisor Microfilm Duplicating Unit Relationship Specialty Start Date End Date Robert Hathaway DO [address] [facility] [place] [address] PCP - General Family Medicine 05/10/22 documented as of this encounter
--- OUTSIDE RECORDS SUMMARY | 2025-05-03 14:27 | XMS_ITS | Encounter Summary ---
Author Organization [employer] Address [facility][id number] [address] [place] [address] Care Team Providers Care Wide Load Escort Name Role Phone Robert Hathaway DO Primary Care Provider +[phone] Encounter Details Date Type Department Care Team (Late st Contact Info) Description 06/04/2023 Orders Only [facility] Internal Medicine - Family Medicine [address] [place] [address] Robert Hathaway DO [address] [facility] [place] [address] Social History Tobacco Use Types Packs/Day Years [...] any clubs o r organizations such as denominational groups, unions, fraternal or athletic groups, or [...] Answer Date Recorded Total Score 0 06/06/2023 [facility] of Occupat ional Health - Occupational [...] Medicine - Family Medicine [address] [place] [address] Robert Hathaway DO [address] [facility] [place] [address] documented as of this encounter Visit Diagnoses Not on filedocumented in this encounter Additional Health Concerns Assessment Noted Time PHQ-9 Depression Total Score: 0 05/06/20 23 1:25 PM EDT A Body Mass Index follow-up plan has been documented for the patient 01/02/2023 6:47 PM EDT documented as of this encounter Care Teams Wide Load Escort Relationship Specialty Start Date End Date Robert Hathaway DO [address] [facility] [place] [address] PCP - General Family Medicine 05/10/22 documented as of this encounter
--- OUTSIDE RECORDS SUMMARY | 2025-05-03 14:27 | XMS_ITS | Encounter Summary ---
Author Organization [facility] tem Address [facility] [id number] [address] [place] [address] Care Team Providers Care Electric Motor Repairer Name Role Phone Robert Hathaway DO Primary Care Provider [phone] Encounter Details Date Type Department Care Team (Late st Contact Info) Description 03/24/2025 Results Follow-Up [facility] Internal Medicine - Family Medicine [address] [place] [phone] Robert Hathaway DO [address] [facility], [facility] [place] [address] POCT Hemoglobin A1c, Tramadol and Metabolite, U, Drug Screen, Urine Social History Tobacco Use Types Packs/Day Years Used Date Smoking Tobacco: Former Cigarettes 0.8 36.5 0 04/15/1988 - 02/17/2025 Passive Smoke Exposure: Current Smokeless Tobacco: Never Alcohol Use Standard Drinks/Week Comments Not Currently 0 (1 standard drink = 0.6 oz pur e alcohol) [facility] Utilities Answer Date Recorded In the past 12 months has [employer], gas, oil, or water company threatened to [...] often do you attend chur ch or anabaptist services? Never 01/24/2023 Do you belong to any clubs o r organizations such as uatsdin groups, unions, fraternal or athletic groups, or [...] Answer Date Recorded Total Score 0 03/16/2025 [facility] of Occupat ional Health [...] Recorded Do you need help finding a [facility] career center and/or a training program? No [...] - Family Medicine [address] [place] [address] Robert Hathaway DO [address] [facility] [place] [address] documented as of this encounter Visit Diagnoses Not on filedocumented in this encounter Additional Health Concerns Assessment Noted Time PHQ-9 Depression Total Score: 0 03/16/20 25 2:05 PM EDT A Body Mass Index follow-up plan has been documented for the patient 07/10/2023 3:34 PM EST documented as of this encounter Care Teams Electric Motor Repairer Relationship Specialty Start Date End Date Robert Hathaway DO [address] [facility] [place] [address] PCP - General Family Medicine 05/10/22 documented as of this encounter
--- OUTSIDE RECORDS SUMMARY | 2025-05-03 14:27 | XMS_ITS | Encounter Summary ---
Author Organization [facility] tem Address [facility] [id number] [address] [place] [address] Care Team Providers Care Admittance Attendant Name Role Phone Robert Hathaway Primary Care Provider + [phone] Encounter Details Date Type Department Care Team (Late st Contact Info) Description 05/09/2023 Orders Only [facility] Internal Medicine - Family Medicine [address] [place] [phone] External, Scanning Provider Social History Tobacco Use [...] Answer Date Recorded Total Score 0 05/06/2023 [facility] Occupat ional Health - Occupational [...] Medicine - Family Medicine [address] [place] [address] Robert Hathaway DO [address] [facility] [place] [address] documented as of this encounter Procedures Procedure Name Priority Date/Time Associated Diagnosis Comments MULTIPLE LABS Routine 05/09/2023 2:13 PM EDT documented in this encounter Results * Multiple labs (05/09/2023 2:13 PM EDT) us Scanning Provider External [facility] Final Result MANUALLY TRANSCRIBED RESULTS documented in this encounter Visit Diagnoses Not on filedocumented in this encounter Additional Health Concerns Assessment Noted Time PHQ-9 Depression Total Score: 0 05/06/20 23 1:25 PM EDT A Body Mass Index follow-up plan has been documented for the patient 01/02/2023 6:47 PM EDT documented as of this encounter Care Teams Admittance Attendant Relationship Specialty Start Date End Date Robert Hathaway DO [address] [facility] [place] [address] PCP - General Family Medicine 05/10/22 documented as of this encounter
--- OUTSIDE RECORDS SUMMARY | 2025-05-03 14:27 | XMS_ITS | Encounter Summary ---
[facility] Address [id number] [address] [place] [address] Care Team Providers Care Telecommunications Equipment Installer Name Role Phone Robert Hathaway DO Primary Care Provider + [phone] Reason for Visit * Reason Comments Med Refill Encounter Details Date Type Department Care Team (Late st Contact Info) Description 03/04/2023 Refill [facility] Internal Medicine - Family Medicine [address] [place] [address] Robert Hathaway DO [address], [facility] [place], [place] [id number] Chronic bilateral low back pain with sciatica, sciatica laterality unspecified Social History Tobacco Use Types Packs/Day Years [...] often do you attend chur ch or congregational services? Never 01/24/2023 Do you belong to [...] Answer Date Recorded Total Score 0 01/24/2023 [facility] Occupat ional Health - Occupational [...] Telephone Encounter - Simi Petty CMA - 03/04/2023 12:10 PM EDT Pt called and wanted to know why there was only 30 days of xanax called in and not 90 documented in this encounter Plan of Treatment Upcoming Encounters Date Type Department Care Team (Late st Contact Info) Description 06/17/2025 1:30 PM EDT Office Visit [facility] Internal Medicine - Family Medicine [address] [place] [address] Robert Hathaway DO [address] [facility] [place] [address] documented as of this encounter Visit Diagnoses Diagnosis Chronic bilateral low back pain with sciatica, sciatica laterality unspecified documented in this encounter Additional Health Concerns Assessment Noted Time PHQ-9 Depression Total Score: 0 01/25/20 23 2:02 PM EDT A Body Mass Index follow-up plan has been documented for the patient 01/02/2023 6:47 PM EDT documented as of this encounter Care Teams Telecommunications Equipment Installer Relationship Specialty Start Date End Date Robert Hathaway DO [address] [facility] [place] [address] PCP - General Family Medicine 05/10/22 documented as of this encounter
--- OUTSIDE RECORDS SUMMARY | 2025-05-03 14:27 | XMS_ITS | Encounter Summary ---
Author Organization [facility] tem Address [facility] [id number] [address] [place] [address] Care Team Providers Care Retort Feeder Ground Bone Name Role Phone Robert Hathaway DO Primary Care Provider [phone] Encounter Details Date Type Department Care Team (Late st Contact Info) Description 05/10/2023 Orders Only [facility] Internal Medicine - Family Medicine [address] [place] [address] Robert Hathaway DO [address] [facility] [place] [address] Social History Tobacco Use Types Packs/Day Years [...] often do you attend chur ch or moravian services? Never 01/24/2023 Do you belong to any clubs o r organizations such as zoroastrianism groups, unions, fraternal or athletic groups, or [...] Answer Date Recorded Total Score 0 05/06/2023 [facility] of Occupat ional Health - Occupational [...] Medicine - Family Medicine [address] [place] [address] Robert Hathaway DO [address] [facility] [address] documented as of this encounter Visit Diagnoses Not on filedocumented in this encounter Additional Health Concerns Assessment Noted Time PHQ-9 Depression Total Score: 0 05/06/20 23 1:25 PM EDT A Body Mass Index follow-up plan has been documented for the patient 01/02/2023 6:47 PM EDT documented as of this encounter Care Teams Retort Feeder Ground Bone Relationship Specialty Start Date End Date Robert Hathaway DO [address] [facility] [address] PCP - General Family Medicine 05/10/22 documented as of this encounter
--- OUTSIDE RECORDS SUMMARY | 2025-05-03 14:27 | XMS_ITS | Encounter Summary ---
Author Organization [employer] [facility] tem Address [facility] [id number] [address] [place] [address] Care Team Providers Care Platform Builder Name Role Phone Robert Hathaway DO Primary Care Provider [phone] Reason for Visit * Reason Comments Med Refill Encounter Details Date Type Department Care Team (Late st Contact Info) Description 03/22/2025 Refill [facility] Internal Medicine - Family Medicine [address] [place] [address] Robert Hathaway DO [address], [facility] [place], [place] [id number] Complex tear of medial meniscus of left knee, sequela Social History Tobacco Use Types Packs/Day Years Used Date Smoking Tobacco: Former Cigarettes 0.8 36.5 0 04/15/1988 - 02/17/2025 Passive Smoke Exposure: Current Smokeless Tobacco: Never Alcohol Use Standard Drinks/Week Comments Not Currently 0 (1 standard drink = 0.6 oz pur e alcohol) [facility] Utilities Answer Date Recorded In the past 12 months has [employer], gas, oil, or water company threatened [...] often do you attend chur ch or gnosticist services? Never 01/24/2023 Do you belong to any clubs o r organizations such as christianity groups, unions, fraternal or athletic groups, or [...] Answer Date Recorded Total Score 0 03/16/2025 [facility] Occupat ional Health - Occupational [...] Do you need help finding a [facility] career center and/or a training [...] Medicine - Family Medicine [address] [place] [address] Robert Hathaway DO [address] [facility] [address] documented as of this encounter Visit Diagnoses Diagnosis Complex tear of medial meniscus of left knee, sequela documented in this encounter Additional Health Concerns Assessment Noted Time PHQ-9 Depression Total Score: 0 03/16/20 25 2:05 PM EDT A Body Mass Index follow-up plan has been documented for the patient 07/10/2023 3:34 PM EST documented as of this encounter Care Teams Platform Builder Relationship Specialty Start Date End Date Robert Hathaway DO [address] [facility] [place] [address] PCP - General Family Medicine 05/10/22 documented as of this encounter
--- OUTSIDE RECORDS SUMMARY | 2025-05-03 14:27 | XMS_ITS | Encounter Summary ---
Author Organization [employer] tem Address [facility] [id number] [address] [place] [address] Care Team Providers Care Maintainability Engineer Name Role Phone Robert Hathaway Primary Care Provider + [phone] Encounter Details Date Type Department Care Team (Late st Contact Info) Description 05/22/2023 Telephone [facility] Internal Medicine - Family Medicine [address] [place] [phone] Simi Petty CMA Social History Tobacco Use [...] often do you attend chur ch or sabianist services? Never 01/24/2023 Do you belong to any clubs o r organizations such as religious groups, unions, fraternal or athletic groups, or [...] Answer Date Recorded Total Score 0 05/06/2023 [facility] - Occupational Stress Questionnaire Answer Date [...] Telephone Encounter - Simi Petty CMA - 05/22/2023 2:06 PM EDT Adelaida from the surgery center called and wanted to know if you would amend your note for patientfrom her pre op clearance saying after reviewing her labs and EKG that you would clear her. * Telephone Encounter - Robert Hathaway DO - 05/22/2023 2:06 PM EDT I know she had a normal cardiac cath 3 years ago but her EKG is abnormal and new changes from EKG done lase year. I would recommend a lexiscan stress test to further evaluate. She has several risk factors for heart disease. I will send the order to [facility] if she agrees. * Telephone Encounter - Valery Weller CMA - 05/22/2023 2:06 PM EDT Pt has a 30 day event moniter appt set up in [place] for . She had her foot surgery 2 days ago.She is agreeable to any other testing, you can send orders to [facility]. Pt said she cannot run on treadmill, so needs the injection stress tests. * Telephone Encounter - Valery Weller CMA - 05/22/2023 2:06 PM EDT Pt called asking when she is going to be set up for stress test? Than she called back said she has a stress test in her book for [facility] in May * Telephone Encounter - Rosi Sanders MA - 05/22/2023 2:06 PM EDT Pt called and said she needs an order for the stress test so she can get that set up * Telephone Encounter - Robert Hathaway DO - 05/22/2023 2:06 PM EDT I recommended a Lexiscan stress test because of her abnormal EKG for preop clearance but it sounds like she had her surgery already. I recommend that she see her hospice registered nurse look and they may want to do something like a CT scan of her coronary arteries since she had a normal catheterization 3 years ago. They may opt to do nothing but I would like their opinion * Telephone Encounter - Rosi Sanders MA - 05/22/2023 2:06 PM EDT Spoke to pt, she is going to cardio 06/14-event monitor x 30 day. Echo denied by ins ordered by them also. documented in this encounter Plan of Treatment Upcoming Encounters Date Type Department Care Team (Late st Contact Info) Description 06/17/2025 1:30 PM EDT Office Visit [facility] Internal Medicine - Family Medicine [address] [place] [address] Robert Hathaway DO [address] [facility] [place] [address] documented as of this encounter Visit Diagnoses Not on filedocumented in this encounter Additional Health Concerns Assessment Noted Time PHQ-9 Depression Total Score: 0 05/06/20 23 1:25 PM EDT A Body Mass Index follow-up plan has been documented for the patient 01/02/2023 6:47 PM EDT documented as of this encounter Care Teams Maintainability Engineer Relationship Specialty Start Date End Date Robert Hathaway DO [address] [facility] [place] [address] PCP - General Family Medicine 05/10/22 documented as of this encounter
--- OUTSIDE RECORDS SUMMARY | 2025-05-03 14:27 | XMS_ITS | Encounter Summary ---
Author Organization [employer] [facility] tem Address [id number] [address] [place] [address] Care Team Providers Care Children'S Entertainer Name Role Phone Robert Hathaway Primary Care Provider + [phone] Encounter Details Date Type Department Care Team (Late st Contact Info) Description 06/17/2023 Telephone [facility] Internal Medicine - Family Medicine [address] [place] [phone] Simi Petty CMA Social History Tobacco Use [...] often do you attend chur ch or voodoo services? Never 01/24/2023 Do you belong to [...] Answer Date Recorded Total Score 0 06/20/2023 [facility] Occupat ional [facility] - Occupational Stress Questionnaire Answer Date [...] Telephone Encounter - Simi Petty CMA - 06/17/2023 4:16 PM EDT Pt needs more medication for her thrush documented in this encounter Plan of Treatment Upcoming Encounters Date Type Department Care Team (Late st Contact Info) Description 06/17/2025 1:30 PM EDT Office Visit [facility] Internal Medicine - Family Medicine [address] [place] [address] Robert Hathaway DO [address], [facility] [place] [address] documented as of this encounter Visit Diagnoses Not on filedocumented in this encounter Additional Health Concerns Assessment Noted Time PHQ-9 Depression Total Score: 0 06/06/20 23 2:41 PM EDT A Body Mass Index follow-up plan has been documented for the patient 01/02/2023 6:47 PM EDT documented as of this encounter Care Teams Children'S Entertainer Relationship Specialty Start Date End Date Robert Hathaway DO [address], [facility] [place] [address] PCP - General Family Medicine 05/10/22 documented as of this encounter
--- OUTSIDE RECORDS SUMMARY | 2025-05-03 14:28 | XMS_ITS | Clinical Summary ---
Author Organization [employer] Address [id number] [address] [place] [address] Care Team Providers Care Animal Chiropractor Name Role Phone Robert Hathaway Primary Care Provider [phone] Allergies Active Allergy Reactions Criticality Noted Date Comments Adhesive Tape-Silicones Other (See Comments),Rash Low 11/02/2011 rash Other Reaction(s): other Other Reaction(s): Other rash Other Reaction(s): other Other Reaction(s): Other rash Other Reaction(s): Other (See Comments) rash Other Reaction(s): other Other Reaction(s): Other rash Amitriptyline Abnormal Behavior 03/13/2017 hallucinate Amoxicillin Vomiting 03/13/2017 Amoxicillin-Pot Clavulanate GI Disturbance Low 03/13/2017 Atomoxetine Hcl GI Disturbance,Palpitati ons Medium 03/13/2017 palpitations Sulfamethoxazole-Trimetho prim Hives,Vomiting 07/30/2019 Bupropion Hcl GI Disturbance,Palpitati ons Medium 03/13/2017 palpitations Codeine Hives High 03/13/2017 Duloxetine 07/30/2019 Divalproex 07/30/2019 Dexamethasone (Pf) 07/30/2019 Doxycycline GI Disturbance,Palpitati ons Medium 03/13/2017 palpitations Eicosapentaenoic Acid 03/13/2017 Fish Containing Products Rash Low 11/02/2011 Fish Derived Hives High 03/13/2017 Fluticasone Propion-Salmeterol Itching,Palpitations Low 03/13/2017 Ibuprofen GI Disturbance Low 03/13/2017 Iodinated Contrast Media Anaphylaxis High 07/07/2024 Patient started to have SOB and felt faint Ketorolac 03/13/2017 Other reaction(s): Other: See Comments Abdominal pain Methadone GI Disturbance Low 03/13/2017 Other reaction(s): Vomiting Methocarbamol Other (See Comments) 11/12/2022 Milnacipran Other (See Comments) 05/25/2022 Meloxicam 07/30/2019 Moxifloxacin Nausea 11/02/2011 Gabapentin 07/30/2019 Nitrofurantoin Monohyd/M-Cryst Other (See Comments) 05/25/2022 Oxcarbazepine GI Disturbance,Palpitati ons Medium 03/13/2017 palpitations Paroxetine Hives 02/07/2023 Penicillin Other (See Comments) 08/06/2014 Penicillins GI Disturbance,Hives,Oth er (See Comments),Vomiting 08/06/2014 Pregabalin Other (See Comments),Palpitation s Low 03/13/2017 hallucinate Ropinirole 07/30/2019 Shellfish Containing Products Rash,Hives High 11/02/2011 Shellfish Derived 07/30/2019 Sodium Chloride-Aloe Vera 08/28/2023 Facial numbness/tongue numbness Sulfamethoxazole Other (See Comments) Topiramate GI Disturbance,Other (See Comments) Low 03/13/2017 Valproic Acid 07/30/2019 Other Reaction(s): Alopecia, Unknown Verapamil GI Disturbance Low 03/13/2017 Verapamil Hcl 07/05/2022 Ziprasidone Palpitations,Other (See Comments) Low 08/06/2014 Ziprasidone Hcl Palpitations Medium 03/13/2017 palpitations Medications albuterol (PROVENTIL HFA;VENTOLIN HFA) 90 mcg/actuation inhaler Inhale 2 puffs every 6 (six) hours as needed for wheezing. Active fremanezumab-vfrm (AJOVY AUTOINJECTOR) 225 mg/1.5 mL 1.5 mL (225 mg total) every 30 (thirty) days. 022 Active rimegepant (NURTEC ODT) 75 mg tablet,disintegra ting Active alendronate (FOSAMAX) 70 mg tablet 023 Active ammonium lactate (LAC-HYDRIN) 12 % lotion Apply topically 2 (two) times a day. 400 g 023 Active calcium carbonate (OS-LARRY) 600 mg (1,500 mg) tablet 023 Active diphenhydrAMINE (BenadryL) 25 mg capsuleIndication s:Rash in adult Take 1 capsule (25 mg total) by mouth every 6 (six) hours as needed for itching or allergies. MAY CAUSE DROWSINESS. HOLD hydroxyzine while taking this medication. 15 capsule 023 Active nebulizers miscIndications:C hronic obstructive pulmonary disease, unspecified COPD type (CMS-HCC) 1 Unit by miscellaneous route every 6 (six) months. 1 each 1 023 Active nebulizer accessories miscIndications:C hronic obstructive pulmonary disease, unspecified COPD type (CMS-HCC) 1 Tube by inhal. via small vol.nebulizer route every 6 (six) months. 1 each 1 023 Active gljbyvvc-beph-JT- calcium &mins (THERAGRAN-M) 9 mg iron-400 mcg tablet Take 1 tablet by mouth in the morning. Active meclizine (ANTIVERT) 25 mg tablet Take 1 tablet (25 mg total) by mouth 3 (three) times a day as needed for dizziness. 20 tablet 1 024 Active carvediloL (COREG) 25 mg tablet Active solifenacin (VESICARE) 10 mg tablet Take 1 tablet (10 mg total) by mouth in the morning. 024 Active thiamine mononitrate, vit B1, (VITAMIN B-1, MONONITRATE,) 100 mg tablet Take 1 tablet (100 mg total) by mouth in the morning and 1 tablet (100 mg total) before bedtime. 024 Active cetirizine (ZyrTEC) 10 mg tablet take one tablet by mouth once daily 30 tablet 11 Active dilTIAZem CD (CARDIZEM CD) 120 mg 24 hr capsule TAKE ONE CAPSULE BY MOUTH ONCE DAILY 30 capsule 11 024 Active EPINEPHrine (EPIPEN) 0.3 mg/0.3 mL auto-injectorIndi cations:Allergic reaction, initial encounter Inject 0.3 mL (0.3 mg total) into the appropriate muscle as needed (As needed for allergic reaction) for up to 1 dose. 1 each 024 Active alcohol swabs (ALCOHOL PADS) pads, medicatedIndicati ons:Type 2 diabetes mellitus with hyperglycemia, without long-term current use of insulin ([facility]) APPLY 1 PAD TOPICALLY EVERY 14 (FOURTEEN) DAYS. CLEAN AREA PRIOR TO PLACING SENSOR 40 each Active nystatin (MYCOSTATIN) cream APPLY TO AFFECTED AREA VIA TOPICAL ROUTE TWICE A DAY 15 g 1 Active lidocaine (XYLOCAINE) 5 % ointment Active furosemide (LASIX) 20 mg tablet TAKE ONE TABLET BY MOUTH ONCE DAILY 30 tablet Active oxygen Inhale continuously. Active atorvastatin (LIPITOR) 80 mg tablet TAKE ONE TABLET BY MOUTH DAILY 30 tablet Active naloxone (NARCAN) 4 mg/actuation spray,non-aerosol nasal spray Administer 1 spray (4 mg total) into alternating nostrils as needed for opioid reversal. 2 each 1 Active blood sugar diagnostic (TRUE METRIX GLUCOSE TEST STRIP) stripIndications: Diabetes mellitus without complication ([facility]) 1 strip by other route as needed for high blood sugar. 100 strip 3 Active blood-glucose meter (TRUE METRIX GLUCOSE METER) miscIndications:D iabetes mellitus without complication ([facility]) 1 Unit by miscellaneous route in the morning. 1 each 025 Active lancets miscIndications:D iabetes mellitus without complication ([facility]) 1 Lancet by miscellaneous route in the morning. 100 each 3 Active psyllium (METAMUCIL) 0.52 gram capsuleIndication s:Altered bowel habits,Incontinen ce of feces with fecal urgency Take 1 capsule (0.52 g total) by mouth in the morning and at bedtime. 60 capsule 1 Active Additional Information Patient not taking.Reported on 03/16/2025 TRUEPLUS LANCETS 33 gauge misc Active ARIPiprazole (ABILIFY) 15 mg tablet TAKE ONE TABLET BY MOUTH ONCE DAILY 30 tablet 5 025 Active montelukast (SINGULAIR) 10 mg tablet TAKE ONE TABLET BY MOUTH DAILY IN THE EVENING 30 tablet 025 Active omeprazole (PriLOSEC) 40 mg capsule TAKE ONE CAPSULE BY MOUTH ONCE DAILY BEFORE MEAL 30 capsule 025 Active ergocalciferol (DRISDOL) 1,250 mcg (50,000 unit) capsule TAKE ONE CAPSULE BY MOUTH ONCE WEEKLY 5 capsule 025 Active ondansetron ODT (ZOFRAN ODT) 4 mg disintegrating tablet Dissolve 1 tablet (4 mg total) on tongue every 8 (eight) hours as needed for nausea or vomiting. 10 tablet 025 Active loperamide (IMODIUM) 2 mg capsule TAKE 2 CAPSULES BY MOUTH AFTER 1ST LOOSE STOOL AND 1 CAPSULE AFTER EACH NEXT BOWEL MOVEMENT; DO NOT EXCEED 16MG (8 CAPSULES) IN 24 HOURS 20 capsule 025 Active metFORMIN (GLUCOPHAGE) 500 mg tabletIndications :Type 2 diabetes mellitus with diabetic mononeuropathy, without long-term current use of insulin ([facility]) TAKE 1 TABLET (500 MG TOTAL) BY MOUTH DAILY WITH BREAKFAST. 30 tablet 025 Active ALPRAZolam (XANAX) 1 mg tabletIndications :Anxiety Take 1 tablet (1 mg total) by mouth 3 (three) times a day as needed for anxiety. 90 tablet 025 Active traMADoL (ULTRAM) 50 mg tabletIndications :Complex tear of medial meniscus of left knee, sequela Take 1 tablet (50 mg total) by mouth every 8 (eight) hours as needed for pain. 20 tablet 025 Active metFORMIN (GLUCOPHAGE) 500 mg tabletIndications :Type 2 diabetes mellitus with diabetic mononeuropathy, without long-term current use of insulin ([facility]) TAKE 1 TABLET (500 MG TOTAL) BY MOUTH DAILY WITH BREAKFAST. 30 tablet 11 024 2024 Discontinued ALPRAZolam (XANAX) 1 mg tabletIndications :Anxiety Take 1 tablet (1 mg total) by mouth 3 (three) times a day as needed for anxiety. 90 tablet 2 025 2024 Discontinued(R eoluis) ondansetron ODT (ZOFRAN ODT) 4 mg disintegrating tablet Dissolve 1 tablet (4 mg total) on tongue every 8 (eight) hours as needed for nausea or vomiting. 10 tablet 1 025 2024 Discontinued(R eorder) loperamide (IMODIUM) 2 mg capsule TAKE 2 CAPSULES BY MOUTH AFTER 1ST LOOSE STOOL AND 1 CAPSULE AFTER EACH NEXT BOWEL MOVEMENT; DO NOT EXCEED 16MG (8 CAPSULES) IN 24 HOURS 20 capsule 1 025 2024 Discontinued(R eorder) traMADoL (ULTRAM) 50 mg tabletIndications :Complex tear of medial meniscus of left knee, sequela Take 1 tablet (50 mg total) by mouth every 8 (eight) hours as needed for pain. 20 tablet 025 2024 Discontinued(R eorder) traMADoL (ULTRAM) 50 mg tabletIndications :Complex tear of medial meniscus of left knee, sequela Take 1 tablet (50 mg total) by mouth every 8 (eight) hours as needed for pain. 20 tablet 025 2024 Discontinued(R eorder) traMADoL (ULTRAM) 50 mg tabletIndications :Complex tear of medial meniscus of left knee, sequela Take 1 tablet (50 mg total) by mouth every 8 (eight) hours as needed for pain. 20 tablet 025 2024 Discontinued(R eorder) traMADoL (ULTRAM) 50 mg tabletIndications :Complex tear of medial meniscus of left knee, sequela Take 1 tablet (50 mg total) by mouth every 8 (eight) hours as needed for pain. 20 tablet 025 2024 Discontinued(R eorder) Active Problems Problem Noted Date Diagnosed Date Onychomycosis 12/25/2024 Peripheral arterial disease 10/26/2024 Chronic pain of left knee 05/20/2024 Rheumatoid factor positive 05/18/2024 Esophageal dilatation 04/30/2024 Hypokalemia 04/08/2024 History of sinus surgery 04/08/2024 History of carpal tunnel surgery 04/08/2024 Diastolic dysfunction 04/08/2024 Lesion of left ulnar nerve 03/10/2024 Enthesopathy of elbow 03/10/2024 Carpal tunnel syndrome 03/10/2024 Benign paroxysmal positional vertigo due to bilateral vestibular disorder 01/20/2024 Degenerative cervical disc 01/07/2024 Hallux valgus of right foot 10/07/2023 Gross hematuria 10/03/2023 OAB (overactive bladder) 10/03/2023 Fecal incontinence 10/03/2023 Abnormality of gait and mobility 07/01/2023 Lumbar degenerative disc disease 06/24/2023 Cubital tunnel syndrome, bilateral 06/20/2023 Lumbosacral radiculopathy at L5 06/20/2023 Cervical paraspinal muscle spasm 05/02/2023 Drug-induced parkinsonism 05/02/2023 Lumbar radiculopathy 05/02/2023 Restless leg syndrome 05/02/2023 Lumbar strain, sequela 04/04/2023 Sacral contusion 04/04/2023 Nocturia 02/25/2023 Bilateral low back pain with sciatica 02/25/2023 Compression injury of nerve 02/25/2023 Overview (06/06/2023): pinched nerve in back also Gastric foreign body 02/25/2023 Colon polyp 02/25/2023 Contracture, right ankle 02/25/2023 Deformity of metatarsal 02/25/2023 Hemorrhoids 02/25/2023 Incomplete emptying of bladder 02/25/2023 Increased frequency of urination 02/25/2023 Osteopenia of hip 02/25/2023 Change in bowel habits 02/25/2023 Overweight 01/24/2023 Downey's neuroma of both feet 11/12/2022 Hammer toes of both feet 11/12/2022 Plantar fasciitis, bilateral 11/12/2022 Hyponatremia 11/12/2022 Leukocytosis 11/12/2022 Feeling of incomplete bladder emptying 11/12/2022 Gastric erosions 11/12/2022 11/12/2022 Loose stools 11/12/2022 11/12/2022 Personality disorder 11/12/2022 11/12/2022 CELINE (obstructive sleep apnea) 11/12/2022 Overview (11/12/2022): does not use cpap any longerpt uses CPAP Tarsal tunnel syndrome 11/12/2022 Tertiary contraction of esophagus 11/12/2022 11/12/2022 TMJ arthralgia 11/12/2022 11/12/2022 Esophageal spasm 11/12/2022 11/12/2022 Gastritis 11/12/2022 11/12/2022 GERD (gastroesophageal reflux disease) 11/12/2022 Mixed incontinence urge and stress 11/12/2022 11/12/2022 Encounter for medication monitoring 10/22/2022 Altered bowel function 05/21/2022 Diabetic peripheral neuropathy 05/21/2022 Difficulty walking 05/21/2022 Urethral stricture 05/21/2022 Stress incontinence of urine 05/21/2022 Sciatica 05/21/2022 Peripheral venous insufficiency 05/21/2022 Osteochondritis dissecans of right ankle 022 Incontinence 05/21/2022 History of renal calculi 05/21/2022 Esophageal dysmotility 05/21/2022 Gastric bezoar 05/21/2022 Dysphagia 05/21/2022 Diabetes mellitus without complication 2 Irritable bowel syndrome with diarrhea 2 Essential hypertension 10/10/2021 Attention deficit hyperactivity disorder 022 Borderline personality disorder 10/05/2021 Vertigo 10/05/2021 Posttraumatic stress disorder 10/05/2021 Obsessive-compulsive disorder 10/05/2021 Neuropathy 10/05/2021 Allergic rhinitis 09/14/2021 Parotid gland enlargement 12/14/2020 Xerostomia 12/14/2020 Bipolar disorder 04/12/2020 Chronic back pain 04/12/2020 Fibromyalgia 04/12/2020 Osteoarthritis 04/12/2020 Lumbar spondylosis 01/26/2020 Disorder of sacrum 01/26/2020 Lumbosacral spondylosis without myelopathy 09/08 Overview (07/01/2023): Added automatically from request for surgery [id number] History of anxiety disorder 02/28/2015 History of fibromyalgia 02/28/2015 History of bipolar disorder 02/28/2015 History of COPD 02/28/2015 History of gastroesophageal reflux (GERD) 2014 Left shoulder pain 02/28/2015 Chronic obstructive lung disease 10/23/2013 Generalized anxiety disorder 10/23/2013 Mitral valve prolapse 10/23/2013 Hyperlipidemia 10/23/2013 Generalized osteoarthritis 10/23/2013 Gastroesophageal reflux disease 10/23/2013 Myofascial pain syndrome 10/23/2013 Kidney stones 10/23/2013 Bicipital tenosynovitis 10/22/2013 Disorder of bursae of shoulder region 10/22/2013 Degenerative joint disease of shoulder region Headache 10/08/2012 Migraine 04/20/2012 Leg pain, bilateral 09/20/2011 Neck pain 09/20/2011 Anxiety 05/01/2011 Low back pain 05/01/2011 Pain in limb 05/01/2011 Resolved Problems Problem Noted Date Diagnosed Date Resolved Date Nicotine dependence, cigaret ellen, uncomplicated 04/08/2024 03/16/2025 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 program development manager 01/03/2023 12/25/2024 Obesity with body mass index 30 or greater 05/21/2022 10/26/2024 Current smoker 10/10/2021 02/24/2025 Overview (05/21/2022): Added secondary to documentation in Social History. Chronic depression 09/14/2021 Chronic, continuous use of opioids 02/28/2015 10/22/2022 History of depression 02/28/20152024 Depressive disorder 05/01/2011 12/26/19 25 Encounters Date Type Department Care Team Description 05/03/2025 Refill [facility] [address] [place] [address] Robert Hathaway, DO Complex tear of medial meniscus of left knee, sequela 04/25/2025 Refill [facility] [address] [place] [address] Robert Hathaway, DO Complex tear of medial meniscus of left knee, sequela 04/21/2025 Refill [facility] [address] [place] [address] Robert Hathaway, DO Anxiety 04/21/2025 Refill [facility] [address] [place] [address] NellacadenceRonenRobert Pamela, DO Anxiety 04/18/2025 Refill [facility] [address] [place] [address] NellaradhaRobert augustin, DO Complex tear of medial meniscus of left knee, sequela 04/15/2025 Refill [facility] [address] [place] [address] NellacadenceRonenRobert Pamela, DO Type 2 diabetes mellitus with diabetic mononeuropathy, without long-term current use of insulin ([facility]) 04/12/2025 Refill [facility] [address] [place] [address] Amaris Hilton, CARMINA Complex tear of medial meniscus of left knee, sequela 04/11/2025 Refill [facility] [address] [place] [address] NellacadenceRonenRobert Pamela, DO Complex tear of medial meniscus of left knee, sequela 04/08/2025 Refill [facility] [address] [place] [address] NellacadenceRonenRobert Pamela, DO 04/04/2025 Refill [facility] [address] [place] [address] Nellacadence Robert Pamela, DO Complex tear of medial meniscus of left knee, sequela 03/29/2025 Refill [facility] [address] [place] [address] Ramona Silva, CARMINA Complex tear of medial meniscus of left knee, sequela 03/28/2025 Refill [facility] [address] [place] [address] Rivas Robert Santiago, DO Complex tear of medial meniscus of left knee, sequela 03/24/2025 Results Follow-Up [facility] - [facility] [address] [place] [address] Robert Hathaway, DO POCT Hemoglobin A1c, Tramadol and Metabolite, U, Drug Screen, Urine 03/22/2025 Refill [facility] - [facility] [address] [place] [address] Rivas Robert Santiago, DO Complex tear of medial meniscus of left knee, sequela 03/22/2025 Refill [facility] - [facility] [address] [place] [address] Amaris Hilton, SORORITY SUPERVISOR Complex tear of medial meniscus of left knee, sequela 03/22/2025 Refill [facility] [address] [place] [address] Rivas Robert Santiago, DO 03/21/2025 Refill [facility] [address] [place] [address] Rivas Robert Santiago, DO Complex tear of medial meniscus of left knee, sequela 03/16/2025 2:00 PM EDT Office Visit [facility] [address] [place] [address] Robert Hathaway, DO Lumbosacral radiculopathy at L5 (Primary Dx); Osteoarthritis, unspecified osteoarthritis type, unspecified site; Diabetes mellitus without complication ([facility]); Chronic obstructive pulmonary disease, unspecified COPD type ([facility]); Anxiety 03/16/2025 Travel 03/15/2025 Refill [facility] [address] [place] [address] Rivas Robert Santiago, DO Complex tear of medial meniscus of left knee, sequela 03/12/2025 Refill [facility] [address] [place] [address] Robert Hathaway, 03/10/2025 9:30 AM EDT Office Visit [facility] [address] [place] [id number] Maya Lynn, GIG TENDER-ZINA Incontinence of feces with fecal urgency (Primary Dx); Altered bowel habits; Polyp of colon, unspecified part of colon, unspecified type 03/10/2025 Travel 03/10/2025 Orders Only [facility] [address] [place] [id number] Ref Prov, Not In System 02/25/2025 Orders Only [facility] [address] [place] [address] Robert Hathaway, DO Diabetes mellitus without complication ([facility]) (Primary Dx) 02/25/2025 Telephone [facility] [address] [place] [address] Amaris Hilton CMA 02/24/2025 11:30 AM EDT Office Visit [facility] [address] [place] [address] Robert Hathaway, Chest wall pain (Primary Dx); Complex tear of medial meniscus of left knee, sequela; Polyp of colon, unspecified part of colon, unspecified type; Diabetes mellitus without complication ([facility]) 02/24/2025 Orders Only [facility] [address] [place] [address] Robert Hathaway, Diabetes mellitus without complication ([facility]) 02/24/2025 Telephone [facility] [address] [place] [address] Robert Hathaway, 02/24/2025 Travel 02/08/2025 Telephone [facility] [address] [place] [address] Simi Petty CMA 02/06/2025 Refill [facility] [address] [place] [address] Robert Hathaway DO from Last 3 Months Immunizations Immunization Administration Dates Next Due Covid-19,mrna, Lnp-s, Pf, 50mcg/0.5ml 12+ Season al 05/12/2024,06/24/2023 Hepatitis A 06/02/2019,11/21/2018 Influenza (IM) Preservative Free 05/12/2024 Influenza, Unspecified 06/24/2023,04/15/2020 Pneumococcal Conjugate 20-valent 05/12/2024 Zoster Vaccine Recombinant 05/12/2024,03/09/2024 Family History Medical History Relation Name Comments Cancer Brother 1 Johny in whole body w hen they found it Learning disabilities Brother 2 Magdi Sudden Brother 2 Magdi Arthritis Mother aubrey Asthma Mother aubrey COPD Mother aubrey Cancer Mother aubrey ovarian Depression Mother aubrey Diabetes Mother aubrey Mental illness Mother aubrey Ovarian cancer Mother aubrey No Known Problems Son 3 was 23 mon ths old and hit by garbage truck Anesthesia problems Neg Hx Relation Name Status Comments Brother 1 Johny Brother 2 Magdi Daughter 1 Alive Daughter 2 Alive Father Mother aubrey Son 1 Alive Son 2 Alive Son 3 Social History Tobacco Use Types Packs/Day Years Used Date Smoking Tobacco: Former Cigarettes 0.8 36.5 0 04/15/1988 - 02/17/2025 Passive Smoke Exposure: Current Smokeless Tobacco: Never Tobacco Cessation:Counseling Given: Not Answered Alcohol Use Standard Drinks/Week Comments Not Currently 0 (1 standard drink = 0.6 oz pur e alcohol) [facility] Utilities Answer Date Recorded In the past 12 months has th e electric, gas, oil, or water company threatened [...] often do you attend chur ch or jew services? Never 01/24/2023 Do you belong to any clubs o r organizations such as jew groups, unions, fraternal or athletic groups, or [...] Answer Date Recorded Total Score 0 03/16/2025 [facility] of Occupat ional Health - Occupational Stress [...] Recorded Do you need help finding a [facility] career center and/or a training program? [...] on file Sexual Orientation Not on file Last Filed Vital Signs Vital Sign Reading Time Taken Comments Blood Pressure 110/60 03/16/2025 2:06 PM EDT Pulse 56 03/16/2025 2:06 PM EDT Temperature 36.6 C (97.9 F) 03/16/2025 2:06 PM EDT Respiratory Rate 20 03/16/2025 2:06 PM EDT Oxygen Saturation 98% 03/16/2025 2:06 PM EDT Inhaled Oxygen Concentration - - Weight 69.9 kg (154 lb) 03/16/2025 2:06 PM EDT Height 162.6 cm (5' 4 ) 03/16/2025 2:06 PM EDT Body Mass Index 26.43 03/16/2025 2:06 PM EDT Plan of Treatment Upcoming Encounters Date Type Department Care Team (Late st Contact Info) Description 06/17/2025 1:30 PM EDT Office Visit [facility] [address] [place] [address] Robert Hathaway, DO [address] [place] [address] Health Maintenance Due Date Last Done Comments Diabetic Ophthalmology Exam 1970 DTaP,Tdap and Td Vaccines (1 - Tdap) 1989 Diabetic Foot Exam 07/08/2024 07/08/2023, 10/02/2022 Adult BMI Follow Up Plan 07/10/2024 07/10/2023 Mammogram 09/27/2024 09/27/2023, 08/20, 08/29/2022 Influenza Vaccine 04/19/2025 05/12/2024, , 04/15/2020 Statin Use: Cardiovascular 01/15/2026 01/15/2025 Statin Use: Diabetic 01/15/2026 01/15/2025 Adult BMI Screening 03/16/2026 03/16/2025 Depression Screening 03/16/2026 03/16/2025 Tobacco Screening 03/16/2026 03/16/2025 Colonoscopy 01/21/2033 01/21/2023 COVID-19 Vaccine Completed 05/12/2024, 06/24/2023 Zoster (Shingles) Vaccine Completed 05/12/2024, Pap Smear Discontinued 07/29/2024 Medical Devices Not on file Procedures Procedure Name Priority Date/Time Associated Diagnosis Comments DRUG SCREEN, URINE Routine 03/16/2025 3: 16 PM EDT Lumbosacral radiculopathy at L5 Osteoarthritis, unspecified osteoarthritis type, unspecified site TRAMADOL AND METABOLITE, U Routine 03/16/2025 3:16 PM EDT Lumbosacral radiculopathy at L5 Osteoarthritis, unspecified osteoarthritis type, unspecified site POCT HEMOGLOBIN A1C Routine 03/16/2025 2 :44 PM EDT Diabetes mellitus without complication ([facility]) HM COLONOSCOPY Routine 01/21/2023 from Last 3 Months or Most Recently Relevant to Health Maintenance Results * Tramadol and Metabolite, U (03/16/2025 3:16 PM EDT) TRAMADOL 4090 Cutoff:25 ng/mL 03/24/2025 4:23 AM EDT [facility] O-DESMETHYLTRAMADOL 6503 Cutoff:25 ng/mL 03/24/2025 4:23 AM EDT [facility] Comment: ADDITIONAL INFORMATION Testing performed by Liquid Chromatography-Tandem Mass Spectrometry (LC-MS/MS). This test was developed and its performance characteristics determined by [facility] in a manner consistent with CLIA requirements. This test has not been cleared or approved by the U.S. Food and Drug Administration. Test Performed by: [facility] [address] [place], [place] [id number] C4 Planner: Natasha Marshall Ph.D.; CLIA# [id number] Urine Urine specimen collection, clean catch / Unknown 03/16/2025 3:16 PM EDT 03/16/2025 3:16 PM EDT us Robert Hathaway DO URINE ORDERABLES Final Resul t [facility] [address] [place] [address], * (ABNORMAL) Drug Screen, Urine (03/16/2025 3:16 PM EDT) Pathologist [facility] AMPHETAMINE/METHAM P Negative Negative 03/16/2025 10:30 PM EDT [facility] Comment:AMPH/METH screening cut off = 1000 ng/mL COCAINE METABOLITE Negative Negative 2024 10:30 PM EDT [facility] Comment:Cocaine screening cu t off value = 300 ng/mL ECSTASY Negative Negative 03/16/2025 10:30 PM EDT [facility] Comment:Ecstasy screening cu t off value = 500 ng/mL METHADONE Negative Negative 03/16/2025 10:30 PM EDT [facility] Comment:Methadone screening cut off value = 300 ng/mL. OPIATES Negative Negative 03/16/2025 10:30 PM EDT [facility] Comment: Opiates screening cut off value = 300 ng/mL This test is used for the detection of codeine, hydrocodone (>1000 ng/mL), morphine and hydromorphone (>900 ng/mL) in urine. OXYCODONE Negative Negative 03/16/2025 10:30 PM EDT [facility] Comment: Oxycodone screening cut off value = 300 ng/mL This test is used for the detection of oxycodone and oxymorphone in urine. PHENCYCLIDINE Negative Negative 03/16/2025 10:30 PM EDT [facility] Comment:Phencyclidine screen ing cut off value = 25 ng/mL CANNABINOIDS Negative Negative 03/16/2025 10:30 PM EDT [facility] Comment:Cannabinoids/THC scr eening cut off value = 50 ng/mL Urine Barbiturates Negative Negative 2024 10:30 PM EDT [facility] Comment:Barbiturates screeni ng cut off value = 200 ng/mL BENZODIAZEPINES Positive(A) Negative 03/16/20 10:30 PM EDT [facility] Comment:Benzodiazepines scre ening cut off value = 200 ng/mL Urine 03/16/2025 3:16 PM EDT 03/16/2025 3:16 PM EDT us Robert Hathaway DO URINE ORDERABLES Final Resul t [facility] [address] [place] [address], [place] [phone] * POCT Hemoglobin A1c (03/16/2025 2:44 PM EDT) External Poct Hgb A1C 5.3 4 - 7 % MANUALLY TRANSCRIBED RESULTS Blood 03/16/2025 2:44 PM EDT us Robert Hathaway DO POINT OF CARE TEST ORDERABLE S Final Result MANUALLY TRANSCRIBED RESULTS * HM COLONOSCOPY (01/21/2023) us Scanning Provider External HEALTH MAINTENANCE Fi nal Result MANUALLY TRANSCRIBED RESULTS from Last 3 Months or Most Recently Relevant to Health Maintenance Insurance [employer] Care Teams Animal Chiropractor Relationship Specialty Start Date End Date Robert Hathaway DO [address] [place] [address] PCP - General Family Medicine 05/10/22
--- OUTSIDE RECORDS SUMMARY | 2025-05-03 14:28 | XMS_ITS | Encounter Summary ---
Author Organization [employer] s tem Address [id number] [address] [place] [address] Care Team Providers Care Internal Audit Manager Name Role Phone Robert Hathaway Primary Care Provider + [phone] Encounter Details Date Type Department Care Team (Late st Contact Info) Description 12/21/2024 [facility]phone [facility] - Family Medicine [address] [place] [phone] Simi Petty CMA Social History Tobacco Use Types Packs/Day Years Used Date Smoking Tobacco: Every Day Cigarettes 0.8 35 Started: 04/15/1988; Last attempted to quit: 04/15/2023 Smokeless Tobacco: Never Alcohol Use Standard Drinks/Week Comments Not Currently 0 (1 standard drink = 0.6 oz pur e alcohol) [facility] Utilities Answer Date Recorded In the past 12 months has [employer], gas, oil, or water [employer] threatened to shut off services in your [...] any clubs o r organizations such as temple groups, unions, fraternal or athletic groups, or [...] PHQ-2 Answer Date Recorded Total Score 0 12/25/2024 [facility] - Occupational Stress Questionnaire Answer [...] Recorded Do you need help finding a [facility] career center and/or a training program? No 01/24/2023 Hunger Screening Answer Date Recorded Within the past 12 months we worried whether our food would run out before we got money to buy more. Never True 12/25/2024 Within the past 12 months th e food we bought just didn't last and we didn't have money to get more. Never True 12/25/2024 Purpose - Life Answer Date Recorded I [...] - Family Medicine [address] [place] [address] Robert Hathaway DO [address] [facility] [place] [address] documented as of this encounter Visit Diagnoses Not on filedocumented in this encounter Additional Health Concerns Assessment Noted Time PHQ-9 Depression Total Score: 0 12/16/19 25 3:40 PM EDT A Body Mass Index follow-up plan has been documented for the patient 07/10/2023 3:34 PM EST documented as of this encounter Care Teams Internal Audit Manager Relationship Specialty Start Date End Date Robert Hathaway DO [address] [facility] [place] [address] PCP - General Family Medicine 05/10/22 documented as of this encounter
--- OUTSIDE RECORDS SUMMARY | 2025-05-03 14:28 | XMS_ITS | Encounter Summary ---
Author Organization [facility] Address [address] [place] [address] Care Team Providers Care Asparagus Cutter Name Role Phone Robert Hathaway MD Primary Care Provider + [phone] Robert Hathaway MD Primary Care Provider + [phone] Encounter Details Date Type Department Care Team (Late st Contact Info) Description 06/15/2023 Abstract [facility] [address] [facility] [place] [phone] Carlos Sanchez MD [address] [place] [address] Social History Tobacco Use Types Packs/Day Years Used Date Smoking Tobacco: Every Day Cigarettes Passive Smoke Exposure: Current Smokeless Tobacco: Current Tobacco Cessation:Ready to Q uit: Not Asked; Counseling Given: Not Answered Alcohol Use Standard Drinks/Week Comments Never 0 (1 standard drink = 0.6 oz pur e alcohol) caffeine 1-2 cups per day Comments Unknown Sex and Gender Information Value Date Recorded Sex Assigned at Female 03/24/2024 7:44 PM EDT Legal Sex Female 6:42 PM EDT Gender Identity Female 03/24/2024 7:44 PM EDT Sexual Orientation Not on file COVID-19 Exposure Response Date Recorded In the last 10 days, have yo u been in contact with someone who was confirmed or suspected to have Coronavirus/COVID-19? No / Unsure 06/11/2023 7:48 PM EDT documented as of this encounter Plan of Treatment Upcoming Encounters Date Type Department Care Team (Late st Contact Info) Description 06/10/2025 2:00 PM EDT Office Visit [facility] [place] [facility] [address] [facility] [address] [place] [address] Carlos Sanchez MD [address] [facility] [address] [address] documented as of this encounter Visit Diagnoses Not on filedocumented in this encounter Care Teams Asparagus Cutter Relationship Specialty Start Date End Date Robert Hathaway MD PCP - General Family Medicine 07/24/23 11/18/24 Robert Hathaway MD [address] [facility] [place] [address] PCP - General Family Medicine 11/19/24 documented as of this encounter
--- OUTSIDE RECORDS SUMMARY | 2025-05-03 14:28 | XMS_ITS | Encounter Summary ---
Author Organization [employer] Address [id number] [address] [place] [address] Care Team Providers Care Steam Fitter Helper Name Role Phone Robert Hathaway Primary Care Provider + [phone] Encounter Details Date Type Department Care Team (Late st Contact Info) Description 11/30/2022 Telephone [facility] Internal Medicine - Family Medicine [address] [place] [phone] Simi Petty CMA Social History Tobacco Use Types Packs/Day Years Used Date Smoking Tobacco: Every Day Cigarettes 0.5 35 Smokeless Tobacco: Never Alcohol Use Standard Drinks/Week Comments Not Currently 0 (1 standard drink = 0.6 oz pur e alcohol) PHQ-2 Answer Date Recorded Total Score 0 11/12/2022 Childcare Answer Date Recorded Childcare Unknown 01/28/2019 Employment Answer Date Recorded Employment Unknown 01/28/2019 Purpose - Life Answer Date Recorded Purpose and direction in life Unknown Comments No Sex and Gender Information Value Date Recorded Sex Assigned at Not on file Legal Sex Female 11:58 AM EDT Gender Identity Not on file Sexual Orientation Not on file COVID-19 Exposure Response Date Recorded In the last month, have you been in contact with someone who was confirmed or suspected to have Coronavirus / COVID-19? No / Unsure 11/12/2022 10:48 AM EDT documented as of this encounter Miscellaneous Notes * Telephone Encounter - Simi Petty CMA - 11/30/2022 11:32 AM EDT Pt called and she just had surgery and she is in pain and her Specialist is on vacation and is routing all patients to PCP. Can you send something in for pain * Telephone Encounter - Robert Hathaway DO - 11/30/2022 11:32 AM EDT Postop pain is clearly under the the management of the surgeon. That is 1 thing they definitely said we should not be doing and it is the surgeons responsibility to manage it * Telephone Encounter - Simi Petty CMA - 11/30/2022 11:32 AM EDT Told Patient to refer back to the surgeons office to see what they can do because we do not do postop pain medicine management. documented in this encounter Plan of Treatment Upcoming Encounters Date Type Department Care Team (Late st Contact Info) Description 06/17/2025 1:30 PM EDT Office Visit [facility] Internal Medicine - Family Medicine [address] [place] [address] Robert Hathaway DO [address], [facility] [place] [address] documented as of this encounter Visit Diagnoses Not on filedocumented in this encounter Additional Health Concerns Assessment Noted Time PHQ-9 Depression Total Score: 0 11/13/19 23 11:19 AM EDT documented as of this encounter Care Teams Steam Fitter Helper Relationship Specialty Start Date End Date Robert Hathaway DO [address], [facility] [place] [address] PCP - General Family Medicine 05/10/22 documented as of this encounter
--- OUTSIDE RECORDS SUMMARY | 2025-05-03 14:28 | XMS_ITS | Encounter Summary ---
Author Organization [employer] Sys [employer] Address [facility]-[id number] [address] [place] [address] Care Team Providers Care Industrial Education Teacher Name Role Phone NellaRobert vila Primary Care Provider + [phone] Encounter Details Date Type Department Care Team (Late st Contact Info) Description 02/25/2025 Telephone [facility] Internal Medicine - Family Medicine [address] [place] [phone] Amaris Hilton CMA Social History Tobacco Use Types Packs/Day Years Used Date Smoking Tobacco: Former Cigarettes 0.8 36.5 0 04/15/1988 - 02/17/2025 Smokeless Tobacco: Never Alcohol Use Standard Drinks/Week Comments Not Currently 0 (1 standard drink = 0.6 oz pur e alcohol) [facility] Utilities Answer Date Recorded In the past 12 months has [employer], gas, oil, or water company threatened to [...] Answer Date Recorded Total Score 0 02/24/2025 [facility] - Occupational [...] Recorded Do you need help finding a [facility] career center and/or a training program? [...] encounter Miscellaneous Notes * Telephone Encounter - Amaris Hilton CMA - 02/25/2025 8:40 AM EDT Kaylynn from [facility] [employer] called stating the meter you called in for pt needs a lancet Rx as well. Thank you. documented in this encounter Plan of Treatment Upcoming Encounters Date Type Department Care Team (Late st Contact Info) Description 06/17/2025 1:30 PM EDT Office Visit [facility] Internal Medicine - Family Medicine [address] [place] [address] Robert Hathaway DO [address], [facility] [place] [address] documented as of this encounter Visit Diagnoses Not on filedocumented in this encounter Additional Health Concerns Assessment Noted Time PHQ-9 Depression Total Score: 0 02/25/20 25 11:28 AM EDT A Body Mass Index follow-up plan has been documented for the patient 07/10/2023 3:34 PM EST documented as of this encounter Care Teams Industrial Education Teacher Relationship Specialty Start Date End Date Robert Hathaway DO [address], [facility] [place] [address] PCP - General Family Medicine 05/10/22 documented as of this encounter
--- OUTSIDE RECORDS SUMMARY | 2025-05-03 14:28 | XMS_ITS | Encounter Summary ---
Author Organization [employer] s tem Address [id number] [address] [place] [address] Care Team Providers Care Moisture Meter Operator Name Role Phone Robert Hathaway Primary Care Provider + [phone] Encounter Details Date Type Department Care Team (Late st Contact Info) Description 11/19/2022 Orders Only [facility] Internal Medicine - Family Medicine [address] [place] [phone] External, Scanning Provider Social History Tobacco Use [...] AM EDT documented as of this encounter Plan of Treatment Upcoming Encounters Date Type Department Care Team (Late st Contact Info) Description 06/17/2025 1:30 PM EDT Office Visit [facility] Internal Medicine - Family Medicine [address] [place] [address] Robert Hathaway DO [address] [place] [address] documented as of this encounter Procedures Procedure Name Priority Date/Time Associated Diagnosis Comments MULTIPLE LABS Routine 11/16/2022 XR CHEST 2 VIEW STROKE Routine 11/16/2022 documented in this encounter Results * Multiple labs (11/16/2022) us Scanning Provider External [place] [facility] Final Result MANUALLY TRANSCRIBED RESULTS * X-ray chest 2 view stroke (11/16/2022) Anatomical Region Laterality Modality Body, Chest N/A Computed Radiogr aphy us Scanning Provider External IMG DIAGNOSTIC IMAGIN G ORDERABLES Final Result documented in this encounter Visit Diagnoses Not on filedocumented in this encounter Additional Health Concerns Assessment Noted Time PHQ-9 Depression Total Score: 0 11/13/19 23 11:19 AM EDT documented as of this encounter Care Teams Moisture Meter Operator Relationship Specialty Start Date End Date Robert Hathaway DO [address] [place] [address] PCP - General Family Medicine 05/10/22 documented as of this encounter
--- OUTSIDE RECORDS SUMMARY | 2025-05-03 14:28 | XMS_ITS | Encounter Summary ---
Author Organization [employer] Address [facility]-[id number] [address] [place] [address] Care Team Providers Care Storage Specialist Name Role Phone NellaRobert vila Primary Care Provider [phone] Encounter Details Date Type Department Care Team (Late st Contact Info) Description 12/29/2024 Telephone [facility] Internal Medicine - Family Medicine [address] [place] [phone] Amaris Hilton CMA Social History Tobacco Use Types Packs/Day Years Used Date Smoking Tobacco: Every Day Cigarettes 0.8 35 Started: 04/15/1988; Last attempted to quit: 04/15/2023 Smokeless Tobacco: Never Alcohol Use Standard Drinks/Week Comments Not Currently 0 (1 standard drink = 0.6 oz pur e alcohol) [facility] Utilities Answer Date Recorded In the past 12 months has [employer], gas, oil, or water [employer] threatened to shut off services in your [...] often do you attend chur ch or alevism services? Never 01/24/2023 Do you belong to [...] Date Recorded Total Score 0 12/25/2024 [facility] - Occupational Stress Questionnaire Answer [...] Recorded Do you need help finding a [facility] career [facility] and/or a training program? [...] - Family Medicine [address] [place] [address] Robert Hathaway DO [address] [facility] [place] [address] documented as of this encounter Visit Diagnoses Not on filedocumented in this encounter Additional Health Concerns Assessment Noted Time PHQ-9 Depression Total Score: 0 12/26/19 25 8:58 AM EDT A Body Mass Index follow-up plan has been documented for the patient 07/10/2023 3:34 PM EST documented as of this encounter Care Teams Storage Specialist Relationship Specialty Start Date End Date Robert Hathaway DO [address] [facility] [place] [address] PCP - General Family Medicine 05/10/22 documented as of this encounter
--- OUTSIDE RECORDS SUMMARY | 2025-05-03 14:28 | XMS_ITS | Encounter Summary ---
Author Organization [facility] Sys tem Address [facility]-[id number] [address] [place] [address] Care Team Providers Care Wood Router Hand Name Role Phone Robert Hathaway DO Primary Care Provider [phone] Encounter Details Date Type Department Care Team (Late st Contact Info) Description 11/10/2024 Orders Only [facility] Internal Medicine - Family Medicine [address] [place] [address] Robert Hathaway DO [address] [facility] [place] [address] Social History Tobacco Use Types Packs/Day Years Used Date Smoking Tobacco: Every Day Cigarettes 0.8 35 Started: 04/15/1988; Last attempted to quit: 04/15/2023 Smokeless Tobacco: Never Alcohol Use Standard Drinks/Week Comments Not Currently 0 (1 standard drink = 0.6 oz pur e alcohol) [facility] Utilities Answer Date Recorded In the past 12 months has [employer] electric, gas, oil, or water company threatened [...] week 01/24/2023 How often do you attend [facility] or holiness services? Never 01/24/2023 Do you belong to any clubs o r organizations such as lutheran groups, unions, fraternal or athletic groups, or [...] PHQ-2 Answer Date Recorded Total Score 0 10/26/2024 [facility] Occupat ional Health - Occupational [...] Recorded Do you need help finding a [facility] career center and/or a training program? No 01/24/2023 Hunger Screening Answer Date Recorded Within the past 12 months we worried whether our food would run out before we got money to buy more. Never True 10/26/2024 Within the past 12 months th e food we bought just didn't last and we didn't have money to get more. Never True 10/26/2024 Purpose - Life Answer Date Recorded I [...] - Family Medicine [address] [place] [address] Robert Hathaway DO [address] [place] [address] documented as of this encounter Visit Diagnoses Not on filedocumented in this encounter Additional Health Concerns Assessment Noted Time PHQ-9 Depression Total Score: 0 10/27/19 25 3:28 PM EDT A Body Mass Index follow-up plan has been documented for the patient 07/10/2023 3:34 PM EST documented as of this encounter Care Teams Wood Router Hand Relationship Specialty Start Date End Date Robert Hathaway DO [address] [place] [address] PCP - General Family Medicine 05/10/22 documented as of this encounter"
--- OUTSIDE RECORDS SUMMARY | 2025-05-03 14:28 | XMS_ITS | Encounter Summary ---
Author Organization [facility] Address [address] [place] [address] Care Team Providers Care Economic Development Director Name Role Phone Robert Hathaway MD Primary Care Provider + [phone] Robert Hathaway MD Primary Care Provider + [phone] Encounter Details Date Type Department Care Team (Late st Contact Info) Description 04/25/2023 Orders Only [facility] [address] [place] [address] Bridgett Lott MA Peroneal tendinitis, right Social History Tobacco Use Types Packs/Day Years Used Date Smoking Tobacco: Every Day Cigarettes Passive Smoke Exposure: Current Smokeless Tobacco: Current Alcohol Use Standard Drinks/Week Comments Never 0 [...] as of this encounter Miscellaneous Notes * Result Encounter Note - Martin House DPM - 04/25/2023 9:33 AM EDT labs * Result Encounter Note - Martin House DPM - 04/25/2023 9:33 AM EDT labs documented in this encounter Plan of Treatment Upcoming Encounters Date Type Department Care Team (Late st Contact Info) Description 06/10/2025 2:00 PM EDT Office Visit [facility] [address] [facility] [address] [place] [address] Carlos Sanchez MD [address] [facility] [address], [place] [phone] Scheduled Orders Name Type Priority Associated Diagnoses Orde r Schedule ECG 12 lead ECG Routine Peroneal tendinitis, right Expected: 05/25/2023 (Approximate), Expires: 05/25/2023 XR chest 2 views Imaging Routine Peroneal tendinitis, right Expected: 05/25/2023, Expires: 05/25/2023 documented as of this encounter Procedures Procedure Name Priority Date/Time Associated Diagnosis Comments BASIC METABOLIC PANEL Routine 05/09/2023 9:51 AM EDT Peroneal tendinitis, right CBC WITH AUTO DIFFERENTIAL Routine 05/09/2023 9:50 AM EDT Peroneal tendinitis, right documented in this encounter Results * Basic metabolic panel (05/09/2023 9:51 AM EDT) Blood Venous blood specimen / Unknown us Martin House DPM LAB BLOOD ORDERABLES Final Result EXTERNAL LAB * CBC auto differential (05/09/2023 9:50 AM EDT) Blood Venous blood specimen / Unknown us Martin House DPM LAB BLOOD ORDERABLES Final Result Performing Organization Address City/[facility]/ZIP Co de Phone Number EXTERNAL LAB documented in this encounter Visit Diagnoses Diagnosis Peroneal tendinitis, right documented in this encounter Care Teams Economic Development Director Relationship Specialty Start Date End Date Robert Hathaway MD PCP - General Family Medicine 07/24/23 11/18/24 Robert Hathaway MD [address] [facility] [place] [address] PCP - General Family Medicine 11/19/24 documented as of this encounter
--- OUTSIDE RECORDS SUMMARY | 2025-05-03 14:28 | XMS_ITS | Encounter Summary ---
Author Organization [facility] Sys tem Address [id number] [address] [place] [address] Care Team Providers Care Neurology Technologist Name Role Phone Robert Hathaway DO Primary Care Provider +1 [phone] Encounter Details Date Type Department Care Team (Late st Contact Info) Description 02/25/2025 Orders Only [facility] Internal Medicine - Family Medicine [address] [place] [address] Robert Hathaway DO [address] [facility] [place] [address] Diabetes mellitus without complication ([facility]) (Primary Dx) Social History Tobacco Use Types Packs/Day Years Used Date Smoking Tobacco: Former Cigarettes 0.8 36.5 0 04/15/1988 - 02/17/2025 Smokeless Tobacco: Never Alcohol Use Standard Drinks/Week Comments Not Currently 0 (1 standard drink = 0.6 oz pur e alcohol) [facility] Utilities Answer Date Recorded In the past 12 months has [employer], gas, oil, or water company threatened [...] often do you attend chur ch or congregation services? Never 01/24/2023 Do you belong to [...] Answer Date Recorded Total Score 0 02/24/2025 [facility] of Occupat ional Health - Occupational Stress [...] Recorded Do you need help finding a [facility] career center and/or a training program? [...] Medicine - Family Medicine [address] [place] [address] Robert Hathaway DO [address] [place] [address] documented as of this encounter Visit Diagnoses Diagnosis Diabetes mellitus without complication ([facility])- Primary Type II or unspecified type diabetes mellitus without mention of complication, not stated as uncontrolled documented in this encounter Additional Health Concerns Assessment Noted Time PHQ-9 Depression Total Score: 0 02/25/20 25 11:28 AM EDT A Body Mass Index follow-up plan has been documented for the patient 07/10/2023 3:34 PM EST documented as of this encounter Care Teams Neurology Technologist Relationship Specialty Start Date End Date Robert Hathaway DO [address] [facility] [place] [address] PCP - General Family Medicine 05/10/22 documented as of this encounter
--- OUTSIDE RECORDS SUMMARY | 2025-05-03 14:28 | XMS_ITS | Encounter Summary ---
Author Organization [employer] Sys tem Address [facility]-[id number] [address] [place] [address] Care Team Providers Care Line Assembler Name Role Phone Robert Hathaway DO Primary Care Provider + [phone] Reason for Visit * Reason Comments Med Refill Encounter Details Date Type Department Care Team (Late st Contact Info) Description 12/20/2022 Refill [facility] Internal Medicine - Family Medicine [address] [place] [address] Robert Hathaway DO [address] [facility] [place] [address] Social History Tobacco Use Types Packs/Day Years [...] Medicine - Family Medicine [address] [place] [address] Robert Hathaway DO [address] [facility] [place] [address] documented as of this encounter Visit Diagnoses Not on filedocumented in this encounter Additional Health Concerns Assessment Noted Time PHQ-9 Depression Total Score: 0 11/13/19 23 11:19 AM EDT documented as of this encounter Care Teams Line Assembler Relationship Specialty Start Date End Date Robert Hathaway DO [address] [facility] [place] [address] PCP - General Family Medicine 05/10/22 documented as of this encounter
--- OUTSIDE RECORDS SUMMARY | 2025-05-03 14:28 | XMS_ITS | Clinical Summary ---
Author Organization [facility] Address [address] [place] [address] Phone Care Team Providers Care Manager Telecom Name Role Phone Unavailable Primary Care Provider Unavailabl e Social History Tobacco Use Types Packs/Day Years Used Date Smoking Tobacco: Never Assessed Comments Unknown Sex and Gender Information Value Date Recorded Sex Assigned at Not on file Legal Sex Female 8:35 PM EST Gender Identity Not on file Sexual Orientation Not on file Plan of Treatment Health Maintenance Due Date Last Done Comments CT Colonography 1970 Colonoscopy 1970 Colorectal Cancer Screening 1970 FIT-DNA (Cologuard) 1970 FIT 1970 HIV Screening 1970 Lipid Panel 1970 Sigmoidoscopy 1970 Yearly Adult Physical 1970 MMR Vaccines (1 of 1 - Stand jamal series) 1971 Hepatitis C Screening 1988 Hepatitis B Vaccines (1 of 3 - 19+ 3-dose series) 1989 Cervical Cancer Screening 1991 HPV/Cotest 1991 Pap Smear 1991 DTaP/Tdap/Td Vaccines (1 - Tdap) 1992 Mammogram 2010 Pneumococcal Vaccine (1 of 1 - PCV) 2020 Zoster Vaccines (1 of 2) 2020 COVID-19 Vaccine (1 - 2023-2 5 season) 2025 Influenza Vaccine (#1) 2025 HIB Vaccines Aged Out No longer eligi ble based on patient's age to complete this topic HPV Vaccines Aged Out No longer eligi ble based on patient's age to complete this topic Hepatitis A Vaccines Aged Out No long er eligible based on patient's age to complete this topic IPV Vaccines Aged Out No longer eligi ble based on patient's age to complete this topic Meningococcal Vaccine Aged Out No mathew ben eligible based on patient's age to complete this topic Rotavirus Vaccines Aged Out No longer eligible based on patient's age to complete this topic
--- OUTSIDE RECORDS SUMMARY | 2025-05-03 14:28 | XMS_ITS | Encounter Summary ---
Author Organization [facility] Address [address] [place] [address] Care Team Providers Care Principal Trainer Name Role Phone Robert Hathaway MD Primary Care Provider + [phone] Robert Hathaway MD Primary Care Provider + [phone] Encounter Details Date Type Department Care Team (Late Contact Info) Description 03/12/2023 Abstract [facility] [address] [facility] [address], [place] [phone] Carlos Sanchez MD [address] [place] [address] [id number] Social History Tobacco Use Types Packs/Day Years [...] 06/10/2025 2:00 PM EDT Office Visit [facility] [address] [facility] [address] [place] [address] Carlos Sanchez MD [address] [facility] [address] [address] documented as of this encounter Visit Diagnoses Not on filedocumented in this encounter Care Teams Principal Trainer Relationship Specialty Start Date End Date Robert Hathaway MD PCP - General Family Medicine 07/24/23 11/18/24 Robert Hathaway MD [address] [facility] [place] [address] PCP - General Family Medicine 11/19/24 documented as of this encounter
--- OUTSIDE RECORDS SUMMARY | 2025-05-03 14:28 | XMS_ITS | Encounter Summary ---
Author Organization [facility] Address [facility]-[id number] [address] [place] [address] Care Team Providers Care Mechanical Engineer Name Role Phone Robert Hathaway DO Primary Care Provider + [phone] Reason for Visit * Reason Onset Date Comments Med Refill 12/31/2022 Encounter Details Date Type Department Care Team (Late Contact Info) Description 12/31/2022 [facility] [address] [place] [address] Robert Hathaway DO [address], [facility] [place] [address] Thrush Social History Tobacco Use Types Packs/Day Years Used Date Smoking Tobacco: Every Day Cigarettes 0.5 35 Smokeless Tobacco: Never Alcohol Use Standard Drinks/Week Comments Not Currently 0 (1 standard drink = 0.6 oz pur e alcohol) PHQ-2 Answer Date Recorded Total Score 13 01/03/2023 Childcare Answer Date Recorded Childcare Unknown 01/28/2019 [...] Medicine - Family Medicine [address] [place] [address] Robert Hathaway DO [address] [facility] [place] [address] documented as of this encounter Visit Diagnoses Diagnosis Thrush Candidiasis of mouth documented in this encounter Additional Health Concerns Assessment Noted Time PHQ-9 Depression Total Score: 0 11/13/19 23 11:19 AM EDT documented as of this encounter Care Teams Mechanical Engineer Relationship Specialty Start Date End Date Robert Hathaway DO [address] [facility] [place] [address] PCP - General Family Medicine 05/10/22 documented as of this encounter
--- OUTSIDE RECORDS SUMMARY | 2025-05-03 14:28 | XMS_ITS | Encounter Summary ---
Author Organization [facility] Address [id number] [address] [place] [address] Care Team Providers Care Kineseologist Name Role Phone Robert Hathaway DO Primary Care Provider [phone] Encounter Details Date Type Department Care Team (Late st Contact Info) Description 11/29/2022 Telephone [facility] Internal Medicine - Family Medicine [address] [place] [address] Robert Hathaway DO [address] [facility] [place] [address] Social History Tobacco Use Types Packs/Day Years [...] * Telephone Encounter - Roxanne Smith - 11/29/2022 9:12 AM EDT Stephanie from [facility] called and wanted to let you know that the patient cannot be seen there because back in 2016 she was a patient there but had broke her medication agreement so she had to be discharged. documented in this encounter Plan of Treatment Upcoming Encounters Date Type Department Care Team (Late st Contact Info) Description 06/17/2025 1:30 PM EDT Office Visit [facility] - Family Medicine [address] [place] [address] Robert Hathaway DO [address] [place] [address] documented as of this encounter Visit Diagnoses Not on filedocumented in this encounter Additional Health Concerns Assessment Noted Time PHQ-9 Depression Total Score: 0 11/13/19 23 11:19 AM EDT documented as of this encounter Care Teams Kineseologist Relationship Specialty Start Date End Date Robert Hathaway DO [address], [facility] [place] [address] PCP - General Family Medicine 05/10/22 documented as of this encounter
--- OUTSIDE RECORDS SUMMARY | 2025-05-03 14:28 | XMS_ITS | Encounter Summary ---
Author Organization [employer] Sys tem Address [facility]-[id number] [address] [place] [address] Care Team Providers Care Service Engineer Name Role Phone NellaRobert vila Primary Care Provider + [phone] Encounter Details Date Type Department Care Team (Late st Contact Info) Description 12/22/2024 [facility] [address] [place] [address] Ramona Silva CMA Social History Tobacco Use Types Packs/Day Years Used Date Smoking Tobacco: Every Day Cigarettes 0.8 35 Started: 04/15/1988; Last attempted to quit: 04/15/2023 Smokeless Tobacco: Never Alcohol Use Standard Drinks/Week Comments Not Currently 0 (1 standard drink = 0.6 oz pur e alcohol) [facility] Utilities Answer Date Recorded In the past 12 months has [employer], gas, oil, or water [employer] threatened to shut off services in your [...] often do you attend chur ch or mandaeism services? Never 01/24/2023 Do you belong to [...] Answer Date Recorded Total Score 0 12/25/2024 [facility] of Occupat ional Health [...] Telephone Encounter - Ramona Silva CMA - 12/22/2024 11:[address] [facility] office called and states pt is having a nail avulsion on 12/31 and they had called and ask that at her controlled visit the pre-op was to be added on. Could you addend your note from December 15 and fax it to [facility] AT [phone]. Thank you documented in this encounter Plan of Treatment Upcoming Encounters Date Type Department Care Team (Late st Contact Info) Description 06/17/2025 1:30 PM EDT Office Visit [facility] - Family Medicine [address] [place] [address] Robert Hathaway DO [address] [place] [address] documented as of this encounter Visit Diagnoses Not on filedocumented in this encounter Additional Health Concerns Assessment Noted Time PHQ-9 Depression Total Score: 0 12/16/19 25 3:40 PM EDT A Body Mass Index follow-up plan has been documented for the patient 07/10/2023 3:34 PM EST documented as of this encounter Care Teams Service Engineer Relationship Specialty Start Date End Date Robert Hathaway DO [address] [place] [address] PCP - General Family Medicine 05/10/22 documented as of this encounter
--- OUTSIDE RECORDS SUMMARY | 2025-05-03 14:28 | XMS_ITS | Encounter Summary ---
Author Organization [employer] Sys tem Address [facility]-[id number] [address] [place] [address] Care Team Providers Care Organic Chemistry Professor Name Role Phone NellaRobert vila Primary Care Provider [phone] Encounter Details Date Type Department Care Team (Late st Contact Info) Description 12/29/2024 [facility]phone [facility] [address] [place] [address] Ramona Silva CMA Social History Tobacco Use Types Packs/Day Years Used Date Smoking Tobacco: Every Day Cigarettes 0.8 35 Started: 04/15/1988; Last attempted to quit: 04/15/2023 Smokeless Tobacco: Never Alcohol Use Standard Drinks/Week Comments Not Currently 0 (1 standard drink = 0.6 oz pur e alcohol) [facility] Utilities Answer Date Recorded In the past 12 months has [employer], gas, oil, or water [employer] threatened to shut off services in your [...] often do you attend chur ch or advent services? Never 01/24/2023 Do you belong to any clubs o r organizations such as pentecostal groups, unions, fraternal or athletic groups, or [...] Answer Date Recorded Total Score 0 12/25/2024 [facility] of Occupat ional Health [...] Recorded Do you need help finding a [facility] career center and/or a training program? [...] Telephone Encounter - Ramona Silva CMA - 12/29/2024 9:44 AM EDT I called and left message as to where she would like to go for her PT of the right shoulder. documented in this encounter Plan of Treatment Upcoming Encounters Date Type Department Care Team (Late st Contact Info) Description 06/17/2025 1:30 PM EDT Office Visit [facility] - Family Medicine [address] [place] [address] Robert Hathaway DO [address] [facility] [facility] [place] [address] documented as of this encounter Visit Diagnoses Not on filedocumented in this encounter Additional Health Concerns Assessment Noted Time PHQ-9 Depression Total Score: 0 12/26/19 25 8:58 AM EDT A Body Mass Index follow-up plan has been documented for the patient 07/10/2023 3:34 PM EST documented as of this encounter Care Teams Organic Chemistry Professor Relationship Specialty Start Date End Date Robert Hathaway DO [address] [facility] [place] [address] PCP - General Family Medicine 05/10/22 documented as of this encounter
--- OUTSIDE RECORDS SUMMARY | 2025-05-03 14:28 | XMS_ITS | Encounter Summary ---
Author Organization [facility] Address [address], [address] [place] [address] Care Team Providers Care Dishwashing Machine Operator Name Role Phone Robert Hathaway DO Primary Care Provider Reason for Visit * Reason Onset Date Comments Medication Refill 11/19/2012 Encounter Details Date Type Department Care Team (Late st Contact Info) Description 11/19/2012 Refill [facility] [address] [facility] [address] [place] [address] Alli Caal MD [address] [place] [address] Medication Refill Social History Tobacco Use Types Packs/Day Years Used Date Smoking Tobacco: Every Day Cigarettes 1 15 Smokeless Tobacco: Never Alcohol Use Standard Drinks/Week [...] on filedocumented in this encounter Care Teams Dishwashing Machine Operator Relationship Specialty Start Date End Date Robert Hathaway DO [address] [place] [address] PCP - General Family Medicine 03/04/24 documented as of this encounter
--- OUTSIDE RECORDS SUMMARY | 2025-05-03 14:28 | XMS_ITS | Encounter Summary ---
Author Organization [facility] Address [facility]-[id number] [address] [place] [address] Care Team Providers Care Industrial Service Technician Name Role Phone Robert Hathaway DO Primary Care Provider [phone] Reason for Visit * Reason Comments Med Refill Encounter Details Date Type Department Care Team (Late st Contact Info) Description 12/03/2022 Refill [facility] Medicine - Family Medicine [address] [place] [address] Robert Hathaway DO [address], [place] [address] Social History Tobacco Use Types Packs/Day Years [...] Telephone Encounter - Robert Hathaway DO - 12/03/2022 5:19 PM EDT I have a request for pantoprazole but she is already on omeprazole. She can not take both. They dothe same thing. Did she requests this? * Telephone Encounter - Valery Weller CMA - 12/03/2022 5:19 PM EDT PT IS TAKING THE OMEPRAZOLE, DID NOT REQUEST THIS. DELETEING. documented in this encounter Plan of Treatment Upcoming Encounters Date Type Department Care Team (Late st Contact Info) Description 06/17/2025 1:30 PM EDT Office Visit [facility] - Family Medicine [address] [place] [address] Robert Hathaway DO [address], [place] [address] documented as of this encounter Visit Diagnoses Not on filedocumented in this encounter Additional Health Concerns Assessment Noted Time PHQ-9 Depression Total Score: 0 11/13/19 23 11:19 AM EDT documented as of this encounter Care Teams Industrial Service Technician Relationship Specialty Start Date End Date Robert Hathaway DO [address], [place] [address] PCP - General Family Medicine 05/10/22 documented as of this encounter
--- OUTSIDE RECORDS SUMMARY | 2025-05-03 14:28 | XMS_ITS | Encounter Summary ---
Author Organization [facility] Address [facility]-[id number] [address] [place] [address] Care Team Providers Care Cutter Out Name Role Phone Robert Hathaway DO Primary Care Provider + [phone] Reason for Visit * Reason Comments Med Refill Encounter Details Date Type Department Care Team (Late st Contact Info) Description 01/25/2023 Refill [facility] - Family Medicine [address] [place] [address] Robert Hathaway DO [address], [facility] [place] [address] Social History Tobacco Use Types Packs/Day Years [...] often do you attend chur ch or mandaen services? Never 01/24/2023 Do you belong to [...] Answer Date Recorded Total Score 0 01/24/2023 [facility] of Occupat ional Health - Occupational Stress [...] Medicine [address] [place] [address] Robert Hathaway DO [address] [facility] [place] [address] documented as of this encounter Visit Diagnoses Not on filedocumented in this encounter Additional Health Concerns Assessment Noted Time PHQ-9 Depression Total Score: 0 01/25/20 23 2:02 PM EDT A Body Mass Index follow-up plan has been documented for the patient 01/02/2023 6:47 PM EDT documented as of this encounter Care Teams Cutter Out Relationship Specialty Start Date End Date Robert Hathaway DO [address] [facility] [place] [address] PCP - General Family Medicine 05/10/22 documented as of this encounter
--- OUTSIDE RECORDS SUMMARY | 2025-05-03 14:28 | XMS_ITS | Encounter Summary ---
Author Organization [facility] Address [address] [place] [address] Care Team Providers Care Poultry Trimmer Name Role Phone Robert Hathaway MD Primary Care Provider + [phone] Robert Hathaway MD Primary Care Provider + [phone] Encounter Details Date Type Department Care Team (Late Contact Info) Description 06/06/2023 Abstract [facility] [address] [facility] [address] [place] [address] [facility] D[facility] [address] [facility] [address] [place] [address] Social History Tobacco Use Types Packs/Day Years [...] suspected to have Coronavirus/COVID-19? No / Unsure 05/17/2023 1:16 PM EDT documented as of this encounter Plan of Treatment Upcoming Encounters Date Type Department Care Team (Late Contact Info) Description 06/10/2025 2:00 PM EDT Office Visit [facility] [address] [place] [address] Carlos Sanchez MD [address] [facility] [address] [address] documented as of this encounter Visit Diagnoses Not on filedocumented in this encounter Care Teams Poultry Trimmer Relationship Specialty Start Date End Date Robert Hathaway MD PCP - General Family Medicine 07/24/23 11/18/24 Robert Hathaway MD [address] [place] [address] PCP - General Family Medicine 11/19/24 documented as of this encounter
--- OUTSIDE RECORDS SUMMARY | 2025-05-03 14:28 | XMS_ITS | Encounter Summary ---
Author Organization [facility] Address [address] [place] [address] Care Team Providers Care Cyber Analyst Name Role Phone Robert Hathaway MD Primary Care Provider + [phone] Robert Hathaway MD Primary Care Provider + [phone] Encounter Details Date Type Department Care Team (Late Contact Info) Description 04/14/2023 Abstract [facility] [address] [facility] [address] [place] [address] Galo Good, PT [address] [facility] [address] [place] [address] Social History Tobacco Use Types Packs/Day Years Used Date Smoking Tobacco: Every Day Cigarettes Passive Smoke Exposure: Current Smokeless Tobacco: Current Alcohol Use Standard Drinks/Week Comments Not Currently [...] Upcoming Encounters Date Type Department Care Team ([facility] Contact Info) Description 06/10/2025 2:00 PM EDT Office Visit [facility] [address] [place] [address] Carlos Sanchez MD [address] [id number] documented as of this encounter Visit Diagnoses Not on filedocumented in this encounter Care Teams Cyber Analyst Relationship Specialty Start Date End Date Robert Hathaway MD PCP - General Family Medicine 07/24/23 11/18/24 Robert Hathaway MD [address] [facility] [address] PCP - General Family Medicine 11/19/24 documented as of this encounter
--- OUTSIDE RECORDS SUMMARY | 2025-05-03 14:28 | XMS_ITS | Encounter Summary ---
Author Organization [employer] s tem Address [id number] [address] [place] [address] Care Team Providers Care Siderographist Name Role Phone Robert Hathaway Primary Care Provider + [phone] Encounter Details Date Type Department Care Team (Late st Contact Info) Description 02/08/2025 Telephone [facility] Internal Medicine - Family Medicine [address] [place] [address] Simi Petty CMA Social History Tobacco Use Types Packs/Day Years Used Date Smoking Tobacco: Every Day Cigarettes 0.8 35 Started: 04/15/1988; Last attempted to quit: 04/15/2023 Smokeless Tobacco: Never Alcohol Use Standard Drinks/Week Comments Not Currently 0 (1 standard drink = 0.6 oz pur e alcohol) [facility] Utilities Answer Date Recorded In the past 12 months has [employer], gas, oil, or water [employer] threatened to shut off services in your [...] often do you attend chur ch or synagogue services? Never 01/24/2023 Do you belong to [...] Answer Date Recorded Total Score 0 12/25/2024 [facility] - Occupational Stress Questionnaire Answer Date [...] Recorded Do you need help finding a [facility] lemo[facility] career center and/or a training program? No [...] Telephone Encounter - Simi Petty CMA - 02/08/2025 10:15 AM EDT Patient called and has been taking immodium for 5 days and her diarrhea is so bad she can not control her bowels. Can you send something else in? That needs to go to medicine [facility] * Telephone Encounter - Robert Hathaway DO - 02/08/2025 10:15 AM EDT The other diarrhea medication is a controlled substance so I can not send that and without a [id number] visit. I can send in a powder that can help bind her up if she would like * Telephone Encounter - Simi Petty CMA - 02/08/2025 10:15 AM EDT Patient was in the ER due to her symptoms worsening. * Telephone Encounter - Robert Hathaway DO - 02/08/2025 10:15 AM EDT Okay. She is due for a controlled substance recheck at the end of February. Please set that up * Telephone Encounter - Simi Petty CMA - 02/08/2025 10:15 AM EDT She is coming in for a hospital follow up so is that ok to schedule for 3 months past that apt * Telephone Encounter - Robert Hathaway DO - 02/08/2025 10:15 AM EDT ok documented in this encounter Plan of Treatment Upcoming Encounters Date Type Department Care Team (Late st Contact Info) Description 06/17/2025 1:30 PM EDT Office Visit [facility] Internal Medicine - Family Medicine [address] [place] [address] Robert Hathaway DO [address], [facility] [address] documented as of this encounter Visit Diagnoses Not on filedocumented in this encounter Additional Health Concerns Assessment Noted Time PHQ-9 Depression Total Score: 0 12/26/19 25 8:58 AM EDT A Body Mass Index follow-up plan has been documented for the patient 07/10/2023 3:34 PM EST documented as of this encounter Care Teams Siderographist Relationship Specialty Start Date End Date Robert Hathaway DO [address] [facility] [address] PCP - General Family Medicine 05/10/22 documented as of this encounter
--- OUTSIDE RECORDS SUMMARY | 2025-05-03 14:28 | XMS_ITS | Encounter Summary ---
Author Organization [employer] s tem Address [id number] [address] [place] [address] Care Team Providers Care Religion Teacher Name Role Phone Robert Hathaway Primary Care Provider +1 [phone] Encounter Details Date Type Department Care Team (Late Contact Info) Description 11/02/2022 Orders Only [facility] Internal Medicine - Family Medicine [address] [place] [phone] Lary Soto CMA Lumbosacral spondylosis without myelopathy Social History Tobacco Use Types Packs/Day Years Used Date Smoking Tobacco: Every Day Cigarettes 0.5 35 Smokeless Tobacco: Never Alcohol Use Standard Drinks/Week Comments Not Currently 0 (1 standard drink = 0.6 oz pur e alcohol) Childcare Answer Date Recorded Childcare Unknown 01/28/2019 [...] have Coronavirus / COVID-19? No / Unsure 10/29/2022 9:53 AM EDT documented as of this encounter Plan of Treatment Upcoming Encounters Date Type Department Care Team (Late Contact Info) Description 06/17/2025 1:30 PM EDT Office Visit [facility] Internal Medicine - Family Medicine [address] [place] [address] Robert Hathaway DO [address] [facility] [place] [address] documented as of this encounter Procedures Procedure Name Priority Date/Time Associated Diagnosis Comments AMB REFERRAL TO PAIN MANAGEMENT Routine 11/02/2022 8:17 AM EDT Lumbosacral spondylosis without myelopathy documented in this encounter Results * Ambulatory referral to Pain Management (11/02/2022 8:17 AM EDT) us Robert Hathaway DO OUTPATIENT REFERRAL ORDERABL ES Final Result Performing Organization Address City/State/[facility] Co de Phone Number MANUALLY TRANSCRIBED RESULTS documented in this encounter Visit Diagnoses Diagnosis Lumbosacral spondylosis without myelopathy documented in this encounter Care Teams Religion Teacher Relationship Specialty Start Date End Date Robert Hathaway DO [address], [facility] [place] [address] PCP - General Family Medicine 05/10/22 documented as of this encounter
--- OUTSIDE RECORDS SUMMARY | 2025-05-03 14:28 | XMS_ITS | Encounter Summary ---
Author Organization [facility] Sys tem Address [facility] [id number] [address] [place] [address] Care Team Providers Care Web Merchant Name Role Phone Robert Hathaway Primary Care Provider + [phone] Encounter Details Date Type Department Care Team (Late st Contact Info) Description 01/21/2023 Orders Only [facility] Internal Medicine - Family Medicine [address] [place] [address] External, Scanning Provider Social History Tobacco Use [...] often do you attend chur ch or hinduism services? Never 01/24/2023 Do you belong to any clubs o r organizations such as anabaptism groups, unions, fraternal or athletic groups, or [...] Answer Date Recorded Total Score 0 01/24/2023 [facility] of Occupat ional Health [...] on file documented as of this encounter Functional Status * Audit-C Score Answer Date of Assessment Author 2 01/24/2023 2:40 PM EDT Robert Hathaway DO * Question Answer Date of Assessment Author Q1: How often do you have a drink containing alcohol? Monthly or less 01/24/2023 2:40 PM EDT Robert Hathaway DO Q2: How many drinks containing alcohol do you have on a typical day when you are drinking? 3 or 4 01/24/2023 2:40 PM EDT Eron Hathaway DO Q3: How often do you have six or more drinks on one occasion? Never 01/24/2023 2:40 PM EDT Robert Hathaway DO documented as of this encounter Plan of Treatment Upcoming Encounters Date Type Department Care Team (Late st Contact Info) Description 06/17/2025 1:30 PM EDT Office Visit [facility] Internal Medicine - Family Medicine [address] [place] [address] Robert Hathaway DO [address] [facility] [place] [address] documented as of this encounter Procedures Procedure Name Priority Date/Time Associated Diagnosis Comments HM COLONOSCOPY Routine 01/21/2023 documented in this encounter Results * HM COLONOSCOPY (01/21/2023) us Scanning Provider External HEALTH MAINTENANCE Fi nal Result MANUALLY TRANSCRIBED RESULTS documented in this encounter Visit Diagnoses Not on filedocumented in this encounter Additional Health Concerns Assessment Noted Time PHQ-9 Depression Total Score: 0 01/19/20 23 9:25 AM EDT A Body Mass Index follow-up plan has been documented for the patient 01/02/2023 6:47 PM EDT documented as of this encounter Care Teams Web Merchant Relationship Specialty Start Date End Date Robert Hathaway DO [address] [facility] [place] [place] [address] PCP - General Family Medicine 05/10/22 documented as of this encounter
--- OUTSIDE RECORDS SUMMARY | 2025-05-03 14:28 | XMS_ITS | Encounter Summary ---
Author Organization [facility] Sys tem Address [facility] [id number] [address] [place] [address] Care Team Providers Care Crossbow Maker Name Role Phone Robert Hathaway DO Primary Care Provider +1 [phone] Encounter Details Date Type Department Care Team (Late st Contact Info) Description 12/06/2022 Orders Only [facility] Internal Medicine - Family Medicine [address] [place] [address] Robert Hathaway DO [address] [facility] [address] Social History Tobacco Use Types Packs/Day Years [...] Medicine - Family Medicine [address] [place] [address] Robert Hathaway DO [address] [place] [address] documented as of this encounter Visit Diagnoses Not on filedocumented in this encounter Additional Health Concerns Assessment Noted Time PHQ-9 Depression Total Score: 0 11/13/19 23 11:19 AM EDT documented as of this encounter Care Teams Crossbow Maker Relationship Specialty Start Date End Date Robert Hathaway DO [address] [place] [address] PCP - General Family Medicine 05/10/22 documented as of this encounter
--- OUTSIDE RECORDS SUMMARY | 2025-05-03 14:28 | XMS_ITS | Encounter Summary ---
Author Organization [employer] Sys tem Address [id number] [address] [place] [address] Care Team Providers Care Solar Installation Manager Name Role Phone Robert Hathaway Primary Care Provider [phone] Encounter Details Date Type Department Care Team (Late st Contact Info) Description 11/08/2022 Telephone [facility] Internal Medicine - Family Medicine [address] [place] [address] Simi Petty CMA Social History Tobacco Use [...] Telephone Encounter - Simi Petty CMA - 11/08/2022 9:30 AM EDT Pt called and stated her blood sugar was 52 yesterday. She would like to know what parameters are too low and what parameters is too high. Also she wants to know what she should do if it is too high or too low. * Telephone Encounter - Robert Hathaway DO - 11/08/2022 9:30 AM EDT It depends. 52 is low but if she was asymptomatic then she should eat or drink something to raise it. If she was unconscious then squad should be called. Have her stop her metformin for now. She should've stopped her glimepiride as discussed at last visit * Telephone Encounter - Simi Petty CMA - 11/08/2022 9:30 AM EDT Pt was notified and understands orders of what to do. documented in this encounter Plan of Treatment Upcoming Encounters Date Type Department Care Team (Late st Contact Info) Description 06/17/2025 1:30 PM EDT Office Visit [facility] Internal Medicine - Family Medicine [address] [place] [address] Robert Hathaway DO [address] [facility] [place] [place] [address] documented as of this encounter Visit Diagnoses Not on filedocumented in this encounter Care Teams Solar Installation Manager Relationship Specialty Start Date End Date Robert Hathaway DO [address] [facility] [place] [address] PCP - General Family Medicine 05/10/22 documented as of this encounter
--- OUTSIDE RECORDS SUMMARY | 2025-05-03 14:28 | XMS_ITS | Encounter Summary ---
Author Organization [employer] s tem Address [facility][id number] [address] [place] [address] Care Team Providers Care Manager Storage Name Role Phone Robert Hathaway Primary Care Provider [phone] Encounter Details Date Type Department Care Team (Late st Contact Info) Description 11/12/2022 Orders Only [facility] Internal Medicine - Family Medicine [address] [place] [address] External, Scanning Provider Social History Tobacco Use [...] - Family Medicine [address] [place] [address] Robert Hathaway DO [address] [facility] [place] [address] documented as of this encounter Procedures Procedure Name Priority Date/Time Associated Diagnosis Comments US ABDOMEN LMTD Routine 11/12/2022 documented in this encounter Results * Ultrasound abdomen limited (11/12/2022) Anatomical Region Laterality Modality Body, Abdomen Ultrasound us Scanning Provider External IMG US ORDERABLES Fin al Result documented in this encounter Visit Diagnoses Not on filedocumented in this encounter Additional Health Concerns Assessment Noted Time PHQ-9 Depression Total Score: 0 11/13/19 23 11:19 AM EDT documented as of this encounter Care Teams Manager Storage Relationship Specialty Start Date End Date Robert Hathaway DO [address] [facility] [place] [address] PCP - General Family Medicine 05/10/22 documented as of this encounter
--- OUTSIDE RECORDS SUMMARY | 2025-05-03 14:28 | XMS_ITS | Encounter Summary ---
Author Organization [facility] Address [address] [place] [address] Care Team Providers Care Bark Peeler Name Role Phone Robert Hathaway MD Primary Care Provider + [phone] Robert Hathaway MD Primary Care Provider + [phone] Encounter Details Date Type Department Care Team (Late Contact Info) Description 05/17/2023 Abstract [facility] [address] [facility] [address] [place] [address] Martin House DPM [address] [facility] 5 [place] [address] Social History Tobacco Use Types [...] [address] [place] [address] Carlos Sanchez MD [address] [facility] [address] [address] documented as of this encounter Visit Diagnoses Not on filedocumented in this encounter Care Teams Bark Peeler Relationship Specialty Start Date End Date Robert Hathaway MD PCP - General Family Medicine 07/24/23 11/18/24 Robert Hathaway MD [address] [place] [address] PCP - General Family Medicine 11/19/24 documented as of this encounter
--- OUTSIDE RECORDS SUMMARY | 2025-05-03 14:28 | XMS_ITS | Encounter Summary ---
[facility] [id number] [address] [place] [address] Care Team Providers Care Reference Investigator Name Role Phone Robert Hathaway DO Primary Care Provider [phone] Encounter Details Date Type Department Care Team (Late st Contact Info) Description 01/25/2023 Orders Only [facility] Internal Medicine - Family Medicine [address] [place] [address] Robert Hathaway DO [address] [facility] [place] [address] Chronic obstructive pulmonary disease, unspecified COPD type ([facility]) Social History Tobacco Use Types Packs/Day Years [...] often do you attend chur ch or bahai services? Never 01/24/2023 Do you belong to any clubs o r organizations such as sabianism groups, unions, fraternal or athletic groups, or [...] Answer Date Recorded Total Score 0 01/24/2023 [facility] of Occupat ional Health - Occupational [...] Medicine - Family Medicine [address] [place] [address] Robert Hathaway DO [address], [facility] [place] [place] [address] documented as of this encounter Visit Diagnoses Diagnosis Chronic obstructive pulmonary disease, unspecified COPD type (CMS-HCC) documented in this encounter Additional Health Concerns Assessment Noted Time PHQ-9 Depression Total Score: 0 01/25/20 23 2:02 PM EDT A Body Mass Index follow-up plan has been documented for the patient 01/02/2023 6:47 PM EDT documented as of this encounter Care Teams Reference Investigator Relationship Specialty Start Date End Date Robert Hathaway DO [address] [facility] [place] [address] PCP - General Family Medicine 05/10/22 documented as of this encounter
--- OUTSIDE RECORDS SUMMARY | 2025-05-03 14:28 | XMS_ITS | Encounter Summary ---
Author Organization [employer] Sys [employer] Address [facility] [id number] [address] [place] [address] Care Team Providers Care Tinning Equipment Tender Name Role Phone Robert Hathaway DO Primary Care Provider [phone] Reason for Visit * Reason Comments Med Refill Encounter Details Date Type Department Care Team (Late st Contact Info) Description 10/31/2022 Refill [facility] Internal Medicine - Family Medicine [address] [place] [address] Robert Hathaway DO [address] [facility] [place], [place] [address] Type 2 diabetes mellitus without complication, without long-term current use of insulin ([facility]); Anxiety state Social History Tobacco Use Types [...] Medicine - Family Medicine [address] [place] [address] Robert Hathaway DO [address] [place] [address] documented as of this encounter Visit Diagnoses Diagnosis Type 2 diabetes mellitus without complication, without long-term current use of insulin ([facility]) Anxiety state Anxiety state, unspecified documented in this encounter Care Teams Tinning Equipment Tender Relationship Specialty Start Date End Date Robert Hathaway DO [address] [place] [address] PCP - General Family Medicine 05/10/22 documented as of this encounter
--- OUTSIDE RECORDS SUMMARY | 2025-05-03 14:29 | XMS_ITS | Encounter Summary ---
Author Organization [employer] s tem Address [facility] [place][id number] [address] [place] [address] Care Team Providers Care Staff Genetic Counselor Name Role Phone Robert Hathaway DO Primary Care Provider [phone] Reason for Visit * Reason Comments Med Refill Encounter Details Date Type Department Care Team (Late Contact Info) Description 08/30/2022 Refill [facility] Internal Medicine - Family Medicine [address] [place] [address] Robert Hathaway DO [address] [facility] [place] [address] Chronic bilateral low back pain with sciatica, [...] Medicine - Family Medicine [address] [place] [address] Robert Hathaway DO [address], [facility] [place] [address] documented as of this encounter Visit Diagnoses Diagnosis Chronic bilateral low back pain with sciatica, sciatica laterality unspecified documented in this encounter Care Teams Staff Genetic Counselor Relationship Specialty Start Date End Date Robert Hathaway DO [address] [facility] [place] [address] PCP - General Family Medicine 05/10/22 documented as of this encounter
--- OUTSIDE RECORDS SUMMARY | 2025-05-03 14:29 | XMS_ITS | Encounter Summary ---
Author Organization [facility] Sys tem Address [place]-[id number] [address] [place] [address] Care Team Providers Care Aircraft Captain Name Role Phone Robert Hathaway Primary Care Provider + [phone] Encounter Details Date Type Department Care Team (Late st Contact Info) Description 01/02/2024 Orders Only [facility] Internal Medicine - Family Medicine [address] [place] [address] Lary Soto CMA Chronic bilateral low back pain with bilateral sciatica Social History Tobacco Use Types Packs/Day Years Used Date Smoking Tobacco: Every Day Cigarettes 0.8 35 Started: 04/15/1988; Last attempted to quit: 04/15/2023 Smokeless Tobacco: Never Comments:Smoke 1 PPD x 10 ye ars Alcohol Use Standard Drinks/Week Comments Not Currently 0 (1 standard drink = 0.6 oz pur e alcohol) [facility] Utilities Answer Date Recorded In the past 12 months has [employer], gas, oil, or water [employer] threatened to shut off services in your [...] How often do you attend chur or caodaism services? Never 01/24/2023 Do you belong to any clubs o r organizations such as mormon groups, unions, fraternal or athletic groups, or [...] 07/07/2023 PHQ-2 Answer Date Recorded Total Score 7 12/18/2023 [facility] of Occupat ional [facility] - Occupational Stress Questionnaire Answer [...] Recorded Do you need help finding a [facility] career center and/or a training program? No 01/24/2023 Hunger Screening Answer Date Recorded Within the past 12 months we worried whether our food would run out before we got money to buy more. Never True 12/18/2023 Within the past 12 months th e food we bought just didn't last and we didn't have money to get more. Never True 12/18/2023 Purpose - Life Answer Date Recorded I [...] Description 06/17/2025 1:30 PM EDT Office Visit [facility] Internal Medicine - Family Medicine [address] [place] [address] Robert Hathaway, [address] [facility] [place] [address] documented as of this encounter Procedures Procedure Name Priority Date/Time Associated Diagnosis Comments AMB REFERRAL TO PAIN MANAGEMENT Routine 01/01/2024 Chronic bilateral low back pain with bilateral sciatica documented in this encounter Results * [facility] [place] (01/01/2024) 01/01/2024 Megha Enciso APRN-CROWN ASSEMBLY MACHINE OPERATOR OUTPATIENT REFERRAL ROBBIE SOOT Final Result MANUALLY TRANSCRIBED RESULTS documented in this encounter Visit Diagnoses Diagnosis Chronic bilateral low back pain with bilateral sciatica documented in this encounter Additional Health Concerns Assessment Noted Time PHQ-9 Depression Total Score: 7 12/18/19 24 2:52 PM EDT A Body Mass Index follow-up plan has been documented for the patient 07/10/2023 3:34 PM EST documented as of this encounter Care Teams Aircraft Captain Relationship Specialty Start Date End Date Furlong, Robert G, DO [address] [facility], [place] [address] PCP - General Family Medicine 05/10/22 documented as of this encounter
--- OUTSIDE RECORDS SUMMARY | 2025-05-03 14:29 | XMS_ITS | Encounter Summary ---
Author Organization [facility] Address [address] [place] [address] Phone Care Team Providers Care Privacy Analyst Name Role Phone Unavailable Primary Care Provider Unavailabl e Encounter Details Date Type Department Care Team (Late st Contact Info) Description 11/13/2024 Scanned Document [facility] [address] [place] [address] Scanning, Generic Provider Social History Tobacco Use Types Packs/Day Years Used Date Smoking Tobacco: Never Assessed Comments Unknown Sex and Gender Information Value Date Recorded Sex Assigned at Not on file Legal Sex Female 8:35 PM EST Gender Identity Not on file Sexual Orientation Not on file documented as of this encounter Plan of Treatment Not on file documented as of this encounter Procedures Procedure Name Priority Date/Time Associated Diagnosis Comments ECHOCARDIOGRAM 11/13/2024 documented in this encounter Results * Echocardiogram (11/13/2024) Narrative 11/13/2024 Ordered by an unspecified provider. us Generic Provider Scanning CV ECHO PROCEDURES Fin al Result documented in this encounter Visit Diagnoses Not on filedocumented in this encounter
--- OUTSIDE RECORDS SUMMARY | 2025-05-03 14:29 | XMS_ITS | Encounter Summary ---
Author Organization [employer] s tem Address [id number] [address] [place] [address] Care Team Providers Care Psychiatric Aide Instructor Name Role Phone Robert Hathaway DO Primary Care Provider [phone] [phone] Encounter Details Date Type Department Care Team (Late Contact Info) Description 09/04/2022 Orders Only [facility] Internal Medicine - Family Medicine [address] [place] [address] External, Scanning Provider Social History Tobacco Use [...] Medicine [address] [place] [address] Robert Hathaway DO [address], [email or web address] B [place], [place] [id number] documented as of this encounter Procedures Procedure Name Priority Date/Time Associated Diagnosis Comments SARS COV 2 (COVID-19) STAT 09/04/2022 documented in this encounter Results * SARS COV 2 (COVID-19) (09/04/2022) NASOPHARYNGEAL us Scanning Provider External MICROBIOLOGY - GENERA L ORDERABLES Final Result MANUALLY TRANSCRIBED RESULTS documented in this encounter Visit Diagnoses Not on filedocumented in this encounter Care Teams Psychiatric Aide Instructor Relationship Specialty Start Date End Date Robert Hathaway DO [address] [facility], [place] [address] PCP - General Family Medicine 05/10/22 documented as of this encounter
--- OUTSIDE RECORDS SUMMARY | 2025-05-03 14:29 | XMS_ITS | Encounter Summary ---
Author Organization [employer] s tem Address [facility] [place]-[id number] [address] [place] [address] Care Team Providers Care Ore Sampler Name Role Phone Robert Hathaway Primary Care Provider [phone] Encounter Details Date Type Department Care Team (Late st Contact Info) Description 07/05/2022 Orders Only [facility] - Family Medicine [address] [place] [address] External, Scanning Provider Social History Tobacco Use [...] have Coronavirus / COVID-19? No / Unsure 07/05/2022 3:15 PM EST documented as of this encounter Plan of Treatment Upcoming Encounters Date Type Department Care Team (Late st Contact Info) Description 06/17/2025 1:30 PM EDT [facility] [address] [place] [address] Robert Hathaway DO [address], [place] [address] documented as of this encounter Procedures Procedure Name Priority Date/Time Associated Diagnosis Comments IP CONSULT TO PULMONARY DISEASE Routine 07/05/2022 documented in this encounter Results * Consult Pulmonology (07/05/2022) 07/05/2022 us Scanning Provider External INPATIENT CONSULT ORD ERABLES Final Result MANUALLY TRANSCRIBED RESULTS documented in this encounter Visit Diagnoses Not on filedocumented in this encounter Care Teams Ore Sampler Relationship Specialty Start Date End Date Robert Hathaway DO [address], [facility] [place] [place] [address] PCP - General Family Medicine 05/10/22 documented as of this encounter
--- OUTSIDE RECORDS SUMMARY | 2025-05-03 14:29 | XMS_ITS | Encounter Summary ---
Author Organization [employer] s tem Address [facility] [place][id number] [address] [place] [address] Care Team Providers Care Cardiac Monitor Technician Name Role Phone Robert Hathaway DO Primary Care Provider [phone] Encounter Details Date Type Department Care Team (Late Contact Info) Description 05/04/2022 Orders Only [facility] Internal Medicine - Family Medicine [address] [place] [address] External, Scanning Provider Social History Tobacco Use Types Packs/Day Years Used Date Smoking Tobacco: Every Day Cigarettes Smokeless Tobacco: Never Alcohol Use Standard Drinks/Week [...] - Family Medicine [address] [place] [address] Robert Hathaway DO [address], [facility] [place] [address] documented as of this encounter Procedures Procedure Name Priority Date/Time Associated Diagnosis Comments ECG 12-LEAD Routine 05/04/2022 documented in this encounter Results * ECG 12 lead (05/04/2022) us Scanning Provider External ECG ORDERABLES Final Result MANUALLY TRANSCRIBED RESULTS documented in this encounter Visit Diagnoses Not on filedocumented in this encounter Care Teams Cardiac Monitor Technician Relationship Specialty Start Date End Date Robert Hathaway DO [address] [facility], [place] [address] PCP - General Family Medicine 05/10/22 documented as of this encounter
--- OUTSIDE RECORDS SUMMARY | 2025-05-03 14:29 | XMS_ITS | Encounter Summary ---
Author Organization [employer] [facility] tem Address [facility][id number] [address] [place] [address] Care Team Providers Care Operations Boardman Name Role Phone Robert Hathaway DO Primary Care Provider + [phone] Reason for Visit * Reason Comments Med Refill Encounter Details Date Type Department Care Team (Late Contact Info) Description 10/02/2022 [facility] [address] [place] [address] Robert Hathaway DO [address], [facility] [place] [address] Social History Tobacco Use Types Packs/Day Years [...] Description 06/17/2025 1:30 PM EDT Office Visit [facility] - Family Medicine [address] [place] [address] Robert Hathaway DO [address] [facility] [place] [address] documented as of this encounter Visit Diagnoses Not on filedocumented in this encounter Care Teams Operations Boardman Relationship Specialty Start Date End Date Robert Hathaway DO [address] [facility] [address] PCP - General Family Medicine 05/10/22 documented as of this encounter
--- OUTSIDE RECORDS SUMMARY | 2025-05-03 14:29 | XMS_ITS | Encounter Summary ---
Author Organization [employer] s tem Address [id number] [address] [place] [address] Care Team Providers Care Apparel Fashion Designer Name Role Phone NellaRobert vila Primary Care Provider [phone] Encounter Details Date Type Department Care Team (Late st Contact Info) Description 05/05/2024 Telephone [facility] Internal Medicine - Family Medicine [address] [place] [address] Ramona Silva CMA Social History Tobacco Use Types Packs/Day Years Used Date Smoking Tobacco: Every Day Cigarettes 0.8 35 Started: 04/15/1988; Last attempted to quit: 04/15/2023 Smokeless Tobacco: Never Alcohol Use Standard Drinks/Week Comments Not Currently 0 (1 standard drink = 0.6 oz pur e alcohol) [facility] Utilities Answer Date Recorded In the past 12 months has [employer], gas, oil, or water [employer] threatened to shut off services in your [...] often do you attend chur ch or methodist services? Never 01/24/2023 Do you belong to [...] Answer Date Recorded Total Score 0 04/30/2024 [facility] - [...] got money to buy more. Never True 04/30/2024 Within the past 12 months th e food we bought just didn't last and we didn't have money to get more. Never True 04/30/2024 Purpose - Life Answer Date Recorded I [...] Telephone Encounter - Ramona Silva CMA - 05/05/2024 4:40 PM EDT ----- Message from Dr. Robert Hathaway DO sent at 05/05/2024 1:30 PM EDT ----- 1 of her rheumatology labs was positive-the rheumatology factor. The other ones were negative. We will try to get a consult with a supervisor [employer] if she would like. Her white blood cell count is still elevated. It is probably nothing as it has been there for years. I would recommend getting a Hematology consult to evaluate further. I will make those referrals if she agrees. I talked to pt and read result note. Pt verbally states she understands and would like the referrals.[facility] . * Telephone Encounter - Ramona Silva CMA - 05/05/2024 4:40 PM EDT I called pt and let her know referrals been sent documented in this encounter Plan of Treatment Upcoming Encounters Date Type Department Care Team (Late st Contact Info) Description 06/17/2025 1:30 PM EDT Office Visit [facility] Internal [facility] - Family Medicine [address] [place] [address] Robert Hathaway DO [address] [facility] [place] [address] documented as of this encounter Visit Diagnoses Not on filedocumented in this encounter Additional Health Concerns Assessment Noted Time PHQ-9 Depression Total Score: 0 04/30/20 24 1:58 PM EDT A Body Mass Index follow-up plan has been documented for the patient 07/10/2023 3:34 PM EST documented as of this encounter Care Teams Apparel Fashion Designer Relationship Specialty Start Date End Date Robert Hathaway DO [address] [facility] [place] [address] PCP - General Family Medicine 05/10/22 documented as of this encounter
--- OUTSIDE RECORDS SUMMARY | 2025-05-03 14:29 | XMS_ITS | Encounter Summary ---
Author Organization [facility] Address [id number] [address] [place] [address] Care Team Providers Care Biomedical Electronics Technician Name Role Phone Robert Hathaway DO Primary Care Provider [phone] Encounter Details Date Type Department Care Team (Late st Contact Info) Description 10/17/2022 Telephone [facility] Internal Medicine - Family Medicine [address] [place] [address] Robert Hathaway DO [address] [facility] [place] [address] Social History Tobacco Use Types Packs/Day Years [...] Miscellaneous Notes * Telephone Encounter - Roxanne Morayulisabrandee - 10/17/2022 12:55 PM EST ----- Message from Robert Hathaway DO sent at 10/17/2022 8:52 AM EST ----- ----- Message ----- From: Roxanne Smith Sent: 10/15/2022 11:09 AM EST To: Robert Hathaway DO * Telephone Encounter - Roxanne Smith - 10/17/2022 12:55 PM EST Called [facility] and had them send over her ER note again. documented in this encounter Plan of Treatment Upcoming Encounters Date Type Department Care Team (Late st Contact Info) Description 06/17/2025 1:30 PM EDT Office Visit [facility] Medicine - Family Medicine [address] [place] [address] Robert Hathaway DO [address], [facility] [place] [address] documented as of this encounter Visit Diagnoses Not on filedocumented in this encounter Care Teams Biomedical Electronics Technician Relationship Specialty Start Date End Date Robert Hathaway DO [address] [facility] [place] [address] PCP - General Family Medicine 05/10/22 documented as of this encounter
--- OUTSIDE RECORDS SUMMARY | 2025-05-03 14:29 | XMS_ITS | Encounter Summary ---
Author Organization [facility] Address [address], [address] [place] [address] Care Team Providers Care Pharmacy Technician Infusion Name Role Phone Robert Hathaway DO Primary Care Provider Reason for Visit * Reason Onset Date Comments Medication Refill 12/11/2011 fiorcet Encounter Details Date Type Department Care Team (Late st Contact Info) Description 12/11/2011 Refill [facility] [address] [facility] [address] [place] [address] Alli Caal MD [address] [place] [address] Medication Refill (fiorcet) Social History Tobacco Use Types Packs/Day Years Used Date Smoking Tobacco: Every Day Cigarettes 1 15 Alcohol Use Standard Drinks/Week Comments No 0 (1 standard drink = 0.6 oz pur e alcohol) Comments Unknown Sex and Gender Information Value [...] as of this encounter Visit Diagnoses Diagnosis Hx of migraines- Primary Personal history of other disorders of nervous system and sense organs documented in this encounter Care Teams Pharmacy Technician Infusion Relationship Specialty Start Date End Date Robert Hathaway DO [address] [place] [address] PCP - General Family Medicine 03/04/24 documented as of this encounter
--- OUTSIDE RECORDS SUMMARY | 2025-05-03 14:29 | XMS_ITS | Encounter Summary ---
Author Organization [employer] s tem Address [facility] [id number] [address] [place] [address] Care Team Providers Care Tool Honing Machine Set Up Operator Name Role Phone NellaRobert vila Primary Care Provider [phone] [phone] Encounter Details Date Type Department Care Team (Late st Contact Info) Description 05/27/2024 Telephone [facility] Internal Medicine - Family Medicine [address] [place] [address] Corrina Hester CMA Social History Tobacco Use Types Packs/Day Years Used Date Smoking Tobacco: Every Day Cigarettes 0.8 35 Started: 04/15/1988; Last attempted to quit: 04/15/2023 Smokeless Tobacco: Never Alcohol Use Standard Drinks/Week Comments Not Currently 0 (1 standard drink = 0.6 oz pur e alcohol) [facility] Utilities Answer Date Recorded In the past 12 months has [employer], gas, oil, or water [employer] threatened to shut off services in your [...] often do you attend chur ch or holiness services? Never 01/24/2023 Do you belong to any clubs o r organizations such as episcopalian groups, unions, fraternal or athletic groups, or [...] Answer Date Recorded Total Score 0 04/30/2024 [facility] - Occupational Stress [...] Recorded Do you need help finding a [facility] career [facility] and/or a training program? No 01/24/2023 Hunger Screening Answer Date Recorded Within the past 12 months we worried whether our food would run out before we got money to buy more. Never True 05/20/2024 Within the past 12 months th e food we bought just didn't last and we didn't have money to get more. Never True 05/20/2024 Purpose - Life Answer Date Recorded I have a purpose and direction in my life. Stron gly Agree 01/24/2023 Comments No Sex and Gender Information Value Date Recorded Sex Assigned at Not on file Legal Sex Female 11:58 AM EDT Gender Identity Not on file Sexual Orientation Not on file documented as of this encounter Miscellaneous Notes * Telephone Encounter - Corrina Hester CMA - 05/27/2024 12:48 PM EDT Pt needs refills on Xanax, Vit D, and Zyrtec documented in this encounter Plan of Treatment Upcoming Encounters Date Type Department Care Team (Late st Contact Info) Description 06/17/2025 1:30 PM EDT Office Visit [facility] Internal Medicine - Family Medicine [address] [place] [address] Robert Hathaway DO [address], [facility] [place] [address] documented as of this encounter Visit Diagnoses Not on filedocumented in this encounter Additional Health Concerns Assessment Noted Time PHQ-9 Depression Total Score: 0 04/30/20 24 1:58 PM EDT A Body Mass Index follow-up plan has been documented for the patient 07/10/2023 3:34 PM EST documented as of this encounter Care Teams Tool Honing Machine Set Up Operator Relationship Specialty Start Date End Date Robert Hathaway DO [address], [facility] [place] [address] PCP - General Family Medicine 05/10/22 documented as of this encounter
--- OUTSIDE RECORDS SUMMARY | 2025-05-03 14:29 | XMS_ITS | Encounter Summary ---
Author Organization [facility] Address [address] [place] [address] Care Team Providers Care Lpn Cma Name Role Phone Robert Hathaway MD Primary Care Provider + [phone] Robert Hathaway MD Primary Care Provider + [phone] Reason for Visit * Reason Onset Date Comments Procedure 06/26/2023 After August 1s t surgery Encounter Details Date Type Department Care Team (Late st Contact Info) Description 06/26/2023 Refill [facility] [address] [facility] [address] [place] [address] Martin House DPM [address] [facility] [address] [place] [address] Right Achilles tendinitis Social History Tobacco Use Types Packs/Day Years Used Date Smoking Tobacco: Every Day Cigarettes Passive Smoke Exposure: Current Smokeless Tobacco: Never Alcohol Use Standard Drinks/Week Comments Never 0 [...] PM EDT documented as of this encounter Miscellaneous Notes * Telephone Encounter - Martin House DPM - 07/09/2023 8:54 AM EST No refill, greater than 5 weeks post op. Sx to be most likely in August * Telephone Encounter - Polly Larsen - 07/09/2023 8:46 AM EST Pt called and is requesting surgery to be set up ZEUS as she is having pain. * Telephone Encounter - Martin House DPM - 07/04/2023 11:49 AM EST [facility] DATE-- post August 19, 2023 PCP: Dr. Wright long and Dr. Hannon for cardio. 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 NO WEIGHT BEARING STATUS-- nonweightbearing Percocet 10 documented in this encounter Plan of Treatment Upcoming Encounters Date Type Department Care Team (Late st Contact Info) Description 06/10/2025 2:00 PM EDT Office Visit [facility] [address] [place] [address] Carlos Sanchez MD [address] [place] [address] documented as of this encounter Visit Diagnoses Diagnosis Right Achilles tendinitis documented in this encounter Care Teams Lpn Cma Relationship Specialty Start Date End Date Robert Hathaway MD PCP - General Family Medicine 07/24/23 11/18/24 Robert Hathaway MD [address] [facility] [place] [address] PCP - General Family Medicine 11/19/24 documented as of this encounter
--- OUTSIDE RECORDS SUMMARY | 2025-05-03 14:29 | XMS_ITS | Encounter Summary ---
Author Organization [facility] Address [address] [place] [address] Care Team Providers Care Crm Marketing Analyst Name Role Phone Robert Hathaway MD Primary Care Provider Encounter Details Date Type Department Care Team (Late Contact Info) Description 12/22/2024 Orders Only [facility] [address] [place] [phone] Elizabeth Sebastian Preop examination Social History Tobacco Use Types Packs/Day Years Used Date Smoking Tobacco: Every Day Cigarettes 0.5 39.7 Started: 08/19/1985 Passive Smoke Exposure: Current Smokeless Tobacco: [...] 06/10/2025 2:00 PM EDT Office Visit [facility] [address] [place] [address] Carlos Sanchez MD [address] [facility] [address], [place] [address] documented as of this encounter Procedures Procedure Name Priority Date/Time Associated Diagnosis Comments ECG 12-LEAD Routine 12/22/2024 8:53 AM EDT Preop examination documented in this encounter Results * ECG 12 lead (12/22/2024 8:53 AM EDT) us Martin House DPM ECG ORDERABLES Final Resul t Performing Organization Address City/State/[facility] Co de Phone Number [facility] [address] [place] [address], documented in this encounter Visit Diagnoses Diagnosis Preop examination Unspecified pre-operative examination documented in this encounter Care Teams Crm Marketing Analyst Relationship Specialty Start Date End Date Robert Hathaway MD [address], [place] [address] PCP - General Family Medicine 11/19/24 documented as of this encounter
--- OUTSIDE RECORDS SUMMARY | 2025-05-03 14:29 | XMS_ITS | Encounter Summary ---
Author Organization [employer] tem Address [facility] [place]-[id number] [address] [place] [address] Care Team Providers Care Machine Sneller Name Role Phone NellaRobert vila Pamela BYRNES Primary Care Provider + [phone] Encounter Details Date Type Department Care Team (Late st Contact Info) Description 03/09/2024 Telephone [facility] Internal Medicine - Family Medicine [address] [place] [address] Iram, Cynthia, SURVEY SUPERVISOR Social History Tobacco Use Types Packs/Day Years Used Date Smoking Tobacco: Every Day Cigarettes 0.8 35 Started: 04/15/1988; Last attempted to quit: 04/15/2023 Smokeless Tobacco: Never Alcohol Use Standard Drinks/Week Comments Not Currently 0 (1 standard drink = 0.6 oz pur e alcohol) [facility] Utilities Answer Date Recorded In the past 12 months has [facility], gas, oil, or water [employer] threatened to shut off services in your [...] any clubs o r organizations such as spiritism groups, unions, fraternal or athletic groups, or [...] PHQ-2 Answer Date Recorded Total Score 0 02/27/2024 [facility] Occupat ional Health - [...] Do you need help finding a [facility] career center and/or a training program? No 01/24/2023 Hunger Screening Answer Date Recorded Within the past 12 months we worried whether our food would run out before we got money to buy more. Never True 02/27/2024 Within the past 12 months th e food we bought just didn't last and we didn't have money to get more. Never True 02/27/2024 Purpose - Life Answer Date Recorded I have a purpose and direction in my life. Stron gly Agree 01/24/2023 Comments No Sex and Gender Information Value Date Recorded Sex Assigned at Not on file Legal Sex Female 11:58 AM EDT Gender Identity Not on file Sexual Orientation Not on file documented as of this encounter Miscellaneous Notes * Telephone Encounter - Cynthia Walden CMA - 03/09/2024 4:43 PM EDT Pt called and requested alcohol prep pads for her free style lebra so she can clean the skin beforeputting it on documented in this encounter Plan of Treatment Upcoming Encounters Date Type Department Care Team (Late st Contact Info) Description 06/17/2025 1:30 PM EDT Office Visit [facility] - Family Medicine [address] [place] [address] Robert Hathaway DO [address], [facility] [place] [address] documented as of this encounter Visit Diagnoses Not on filedocumented in this encounter Additional Health Concerns Assessment Noted Time PHQ-9 Depression Total Score: 0 02/27/20 24 11:10 AM EDT A Body Mass Index follow-up plan has been documented for the patient 07/10/2023 3:34 PM EST documented as of this encounter Care Teams Machine Sneller Relationship Specialty Start Date End Date Robert Hathaway DO [address], [facility] [place] [address] PCP - General Family Medicine 05/10/22 documented as of this encounter
--- OUTSIDE RECORDS SUMMARY | 2025-05-03 14:29 | XMS_ITS | Encounter Summary ---
[facility] Organization [facility] Address [facility]-[id number] [address] [place] [address] Care Team Providers Care Business Services Specialist Sales Name Role Phone Robert France DO Primary Care Provider [phone] Reason for Visit * Reason Comments Med Refill Encounter Details Date Type Department Care Team (Late st Contact Info) Description 07/04/2022 Refill [facility] Internal [facility] - Family Medicine [address] [place] [address] Robert France DO [address], [facility] [place] [address] Social History Tobacco Use Types Packs/Day Years [...] PM EST documented as of this encounter Miscellaneous Notes * Telephone Encounter - Rosi Sanders MA - 07/04/2022 11:53 AM EST Furosemide is needing PA, need diagnosis for this to proceed, cannot find anything in her chart. Thank you * Telephone Encounter - Rosi Sanders MA - 07/04/2022 11:53 AM EST Awaiting dx from dr france, to proceed documented in this encounter Plan of Treatment Upcoming Encounters Date Type Department Care Team (Late st Contact Info) Description 06/17/2025 1:30 PM EDT Office Visit [facility] - Family Medicine [address] [place] [address] Robert France DO [address] [place] [address] [address] [place] [address] documented as of this encounter Visit Diagnoses Not on filedocumented in this encounter Care Teams Business Services Specialist Sales Relationship Specialty Start Date End Date Robert France DO [address] [place] [place] [address] PCP - General Family Medicine 05/10/22 documented as of this encounter
--- OUTSIDE RECORDS SUMMARY | 2025-05-03 14:29 | XMS_ITS | Encounter Summary ---
Author Organization [facility] tem Address [facility] [id number] [address] [place] [address] Care Team Providers Care Special Education Superintendent Name Role Phone Robert Hathaway DO Primary Care Provider + [phone] Reason for Visit * Reason Onset Date Comments Med Refill 08/06/2022 Encounter Details Date Type Department Care Team (Late Contact Info) Description 08/06[facility] [address] [place] [address] Lary Soto CMA Anxiety state Social History Tobacco Use Types [...] Medicine - Family Medicine [address] [place] [address] Robert Hathaway DO [address], [place] [address] documented as of this encounter Visit Diagnoses Diagnosis Anxiety state Anxiety state, unspecified documented in this encounter Care Teams Special Education Superintendent Relationship Specialty Start Date End Date Robert Hathaway DO [address], [place] [address] PCP - General Family Medicine 05/10/22 documented as of this encounter
--- OUTSIDE RECORDS SUMMARY | 2025-05-03 14:29 | XMS_ITS | Encounter Summary ---
Author Organization [employer] [facility] tem Address [facility][id number] [address] [place] [address] Care Team Providers Care Master Cosmetologist Name Role Phone NellaRobert vila Pamela BYRNES Primary Care Provider +[phone] Encounter Details Date Type Department Care Team (Late st Contact Info) Description 01/01/2024 Telephone [facility] Internal Medicine - Family Medicine [address] [place] [address] Iram, Cynthia, FINISH SAW OPERATOR Social History Tobacco Use Types Packs/Day Years Used Date Smoking Tobacco: Every Day Cigarettes 0.8 35 Started: 04/15/1988; Last attempted to quit: 04/15/2023 Smokeless Tobacco: Never Comments:Smoke 1 PPD x 10 ye ars Alcohol Use Standard Drinks/Week Comments Not Currently 0 (1 standard drink = 0.6 oz pur e alcohol) [facility] Utilities Answer Date Recorded In the past 12 months has [employer], [employer], oil, or water [employer] threatened to shut off services in your [...] How often do you attend chur or jehovah's witness services? Never 01/24/2023 Do you belong to [...] Answer Date Recorded Total Score 7 12/18/2023 [facility] - Occupational [...] Recorded Do you need help finding a [facility] career center and/or a training [...] Telephone Encounter - Cynthia Walden CMA - 01/01/2024 1:06 PM EDT Pt called stated that the hydroxyzine is not working and would like the xanax back , she said she lays in bed having panic attacks all the time and don't like lt documented in this encounter Plan of Treatment Upcoming Encounters Date Type Department Care Team (Late st Contact Info) Description 06/17/2025 1:30 PM EDT Office Visit [facility] - Family Medicine [address] [place] [address] Robert Hathaway DO [address] [facility] [place] [address] documented as of this encounter Visit Diagnoses Not on filedocumented in this encounter Additional Health Concerns Assessment Noted Time PHQ-9 Depression Total Score: 7 12/18/19 24 2:52 PM EDT A Body Mass Index follow-up plan has been documented for the patient 07/10/2023 3:34 PM EST documented as of this encounter Care Teams Master Cosmetologist Relationship Specialty Start Date End Date Robert Hathaway DO [address] [facility] [place] [address] PCP - General Family Medicine 05/10/22 documented as of this encounter
--- OUTSIDE RECORDS SUMMARY | 2025-05-03 14:29 | XMS_ITS | Encounter Summary ---
Author Organization [employer] s tem Address [id number] [address] [place] [address] Care Team Providers Care Weather Anchor Name Role Phone Robert Hathaway DO Primary Care Provider [phone] Encounter Details Date Type Department Care Team (Late Contact Info) Description 09/18/2022 Orders Only [facility] Internal Medicine - Family Medicine [address] [place] [address] External, Scanning Provider Social History Tobacco Use [...] Medicine [address] [place] [address] Robert Hathaway DO [address], [facility] [place], [place] [id number] documented as of this encounter Procedures Procedure Name Priority Date/Time Associated Diagnosis Comments BIOPSY STOMACH Routine 09/18/2022 documented in this encounter Results * Biopsy stomach (09/18/2022) us Scanning Provider External PROCEDURE/MINOR SURGI LARRY ORDERABLES Final Result MANUALLY TRANSCRIBED RESULTS documented in this encounter Visit Diagnoses Not on filedocumented in this encounter Care Teams Weather Anchor Relationship Specialty Start Date End Date Robert Hathaway DO [address] [facility] [place] [address] PCP - General Family Medicine 05/10/22 documented as of this encounter
--- OUTSIDE RECORDS SUMMARY | 2025-05-03 14:29 | XMS_ITS | Encounter Summary ---
Author Organization [employer] s tem Address [facility]-[id number] [address] [place] [address] Care Team Providers Care Sonar Watchstander Name Role Phone NellaRobert vila Pamela BYRNES Primary Care Provider [phone] Encounter Details Date Type Department Care Team (Late st Contact Info) Description 02/26/2024 Telephone [facility] Internal Medicine - Family Medicine [address] [place] [address] Iram, Cynthia, SALES REPRESENTATIVE PRINTING [employer] Social History Tobacco Use Types Packs/Day Years Used Date Smoking Tobacco: Every Day Cigarettes 0.8 35 Started: 04/15/1988; Last attempted to quit: 04/15/2023 Smokeless Tobacco: Never Alcohol Use Standard Drinks/Week Comments Not Currently 0 (1 standard drink = 0.6 oz pur e alcohol) [facility] Utilities Answer Date Recorded In the past 12 months has [employer], gas, oil, or water [employer] threatened to shut off services in your [...] often do you attend chur ch or taoist services? Never 01/24/2023 Do you belong to any clubs o r organizations such as jainism groups, unions, fraternal or athletic groups, or [...] Answer Date Recorded Total Score 0 02/27/2024 [facility] - [...] Do you need help finding a [facility] and/or a training [...] Telephone Encounter - Cynthia Walden CMA - 02/26/2024 9:11 AM EDT Pt called requesting to be switched to the free style jennifer , stated that her dexcom isnt working right , its been reading in the 40's documented in this encounter Plan of Treatment Upcoming Encounters Date Type Department Care Team (Late st Contact Info) Description 06/17/2025 1:30 PM EDT Office Visit [facility] - Family Medicine [address] [place] [address] Robert Hathaway DO [address], [place] [address] documented as of this encounter Visit Diagnoses Not on filedocumented in this encounter Additional Health Concerns Assessment Noted Time PHQ-9 Depression Total Score: 7 12/18/19 24 2:52 PM EDT A Body Mass Index follow-up plan has been documented for the patient 07/10/2023 3:34 PM EST documented as of this encounter Care Teams Sonar Watchstander Relationship Specialty Start Date End Date Robert Hathaway DO [address], [place] [address] PCP - General Family Medicine 05/10/22 documented as of this encounter
--- OUTSIDE RECORDS SUMMARY | 2025-05-03 14:29 | XMS_ITS | Encounter Summary ---
Author Organization [facility] Address [facility] [id number] [address] [place] [address] Care Team Providers Care Security Services Specialist Name Role Phone Robert Hathaway Primary Care Provider + [phone] Encounter Details Date Type Department Care Team (Late st Contact Info) Description 04/08/2024 Orders Only [facility] - Family Medicine [address] [place] [address] Lary Soto CMA Cubital tunnel syndrome, unspecified laterality; Bilateral carpal tunnel syndrome; Internal derangement of left knee Social History Tobacco Use Types Packs/Day Years Used Date Smoking Tobacco: Every Day Cigarettes 0.8 35 Started: 04/15/1988; Last attempted to quit: 04/15/2023 Smokeless Tobacco: Never Alcohol Use Standard Drinks/Week Comments Not Currently 0 (1 standard drink = 0.6 oz pur e alcohol) [facility] Utilities Answer Date Recorded In the past 12 months has [employer], gas, oil, or water [employer] threatened to shut off services in your [...] How often do you attend chur or confucianist services? Never 01/24/2023 Do you belong to [...] Answer Date Recorded Total Score 0 02/27/2024 [facility] - [...] Internal Medicine - Family Medicine [address] [place] [address] Robert Hathaway DO [address], [facility] [place] [address] documented as of this encounter Procedures Procedure Name Priority Date/Time Associated Diagnosis Comments AMB REFERRAL TO ORTHOPEDIC SURGERY Routine 04/08/2024 4:42 PM EDT Cubital tunnel syndrome, unspecified laterality Bilateral carpal tunnel syndrome Internal derangement of left knee documented in this encounter Results * Ambulatory referral to Orthopedic Surgery ([facility]) (04/08/2024 4:42 PM EDT) us Robert Hathaway DO OUTPATIENT REFERRAL ORDERABL ES Final Result MANUALLY TRANSCRIBED RESULTS documented in this encounter Visit Diagnoses Diagnosis Cubital tunnel syndrome, unspecified laterality Bilateral carpal tunnel syndrome Carpal tunnel syndrome Internal derangement of left knee documented in this encounter Additional Health Concerns Assessment Noted Time PHQ-9 Depression Total Score: 0 02/27/20 24 11:10 AM EDT A Body Mass Index follow-up plan has been documented for the patient 07/10/2023 3:34 PM EST documented as of this encounter Care Teams Security Services Specialist Relationship Specialty Start Date End Date Robert Hathaway DO [address] [place] [address] PCP - General Family Medicine 05/10/22 documented as of this encounter
--- OUTSIDE RECORDS SUMMARY | 2025-05-03 14:29 | XMS_ITS | Encounter Summary ---
Author Organization [facility] Address [facility][id number] [address] [place] [address] Care Team Providers Care Bank Officer Name Role Phone Robert Hathaway DO Primary Care Provider [phone] Encounter Details Date Type Department Care Team (Late st Contact Info) Description 10/23/2022 Telephone [facility] Internal Medicine - Family Medicine [address] [place] [address] Robert Hathaway DO [address] [facility] [place] [address] Social History Tobacco Use Types Packs/Day Years [...] have Coronavirus / COVID-19? No / Unsure 10/22/2022 1:19 PM EST documented as of this encounter Miscellaneous Notes * Telephone Encounter - Roxanne Smith - 10/23/2022 11:05 AM EST Patient called this morning and wanted to let you know that her sugar dropped last night down to 56. But she also was asking about the Dexcom or whatever you were supposed to send in, if you sent it in yet or not because they havent heard anything yet * Telephone Encounter - Robert Hathaway DO - 10/23/2022 11:05 AM EST I filled out the forms today and it will be faxed to [facility] so she should check with them tomorrow. * Telephone Encounter - Roxanne Smith - 10/23/2022 11:05 AM EST Notified pt documented in this encounter Plan of Treatment Upcoming Encounters Date Type Department Care Team (Late st Contact Info) Description 06/17/2025 1:30 PM EDT Office Visit [facility] - Family Medicine [address] [place] [address] Robert Hathaway DO [address] [facility] [place] [address] documented as of this encounter Visit Diagnoses Not on filedocumented in this encounter Care Teams Bank Officer Relationship Specialty Start Date End Date Robert Hathaway DO [address] [facility] [address] PCP - General Family Medicine 05/10/22 documented as of this encounter
--- OUTSIDE RECORDS SUMMARY | 2025-05-03 14:29 | XMS_ITS | Encounter Summary ---
Author Organization [facility] [facility] tem Address [facility]-[id number] [address] [place] [address] Care Team Providers Care Senior Administrative Assistant Name Role Phone NellaRobert vila Primary Care Provider [phone] Encounter Details Date Type Department Care Team (Late Contact Info) Description 10/03/2022 Orders Only [facility] Medicine - Family Medicine [address] [place] [address] Fiona Rockwell, CONCRETE PIPE MACHINE OPERATOR-NUCLEAR WORKER TECHNICIAN [address] [facility] [place] [address] Social History Tobacco Use Types Packs/Day Years [...] Medicine - Family Medicine [address] [place] [address] Robert Hathaway DO [address] [place] [address] documented as of this encounter Visit Diagnoses Not on filedocumented in this encounter Care Teams Senior Administrative Assistant Relationship Specialty Start Date End Date Robert Hathaway DO [address], [facility] [place] [address] PCP - General Family Medicine 05/10/22 documented as of this encounter
--- OUTSIDE RECORDS SUMMARY | 2025-05-03 14:29 | XMS_ITS | Encounter Summary ---
Author Organization [facility] Address [address] [place] [address] Care Team Providers Care Integration Software Developer Name Role Phone Robert Hathaway MD Primary Care Provider + [phone] Robert Hathaway MD Primary Care Provider + [phone] Encounter Details Date Type Department Care Team (Late st Contact Info) Description 08/31/2024 Abstract [facility] [address] [place] [address] David Villalobos DO [address] [facility] [address] [place] [address] Social History Tobacco Use Types Packs/Day Years [...] [facility] [address] [facility] [address] [place] [address] Carlos Sanchez MD [address] [facility] [address] [id number] documented as of this encounter Visit Diagnoses Not on filedocumented in this encounter Care Teams Integration Software Developer Relationship Specialty Start Date End Date Robert Hathaway MD PCP - General Family Medicine 07/24/23 11/18/24 Robert Hathaway MD [address] [place] [address] PCP - General Family Medicine 11/19/24 documented as of this encounter
--- OUTSIDE RECORDS SUMMARY | 2025-05-03 14:29 | XMS_ITS | Clinical Summary ---
Author Organization [facility] Address [address], [address] [place] [address] Care Team Providers Care Planning Specialist Name Role Phone Robert Hathaway DO Primary Care Provider [phone] Allergies Active Allergy Reactions Criticality Noted Date Comments Amoxicillin-Pot Clavulanate Nausea And Vomiting Low 05/01/2011 Moxifloxacin Hcl In Nacl 11/02/2011 Verapamil Nausea And Vomiting Low 10/08/2012 Codeine Hives 05/01/2011 Dexamethasone 07/17/2012 Causes whole body to burn Doxycycline Palpitations Low 05/01/2011 Amitriptyline 10/08/2012 Fish-Derived Products 11/02/2011 Fluticasone-Salmeterol Palpitations Low 10/08/2012 Ziprasidone Hydrochloride Palpitations Low 05/01/2011 Ketorolac Tromethamine Other (See Comments) 05/2011 Severe stomach cramping Methadone Nausea And Vomiting Low 05/01/2011 Ibuprofen Micronized Nausea And Vomiting Low 2011 Penicillins 11/02/2011 Pregabalin Palpitations Low 10/08/2012 Atomoxetine Hcl Palpitations Low 05/01/2011 Adhesive Tape 11/02/2011 Topamax Nausea And Vomiting Low 05/19/2012 Trileptal Palpitations Low 05/01/2011 Bupropion Hcl Palpitations Low 05/01/2011 Medications aripiprazole (ABILIFY) 15 MG tablet Take 10 mg by mouth daily. Active cetirizine (ZYRTEC) 10 MG tablet Take 1 tablet by mouth daily Active albuterol (PROVENTIL HFA;VENTOLIN HFA) 108 (90 BASE) MCG/ACT inhaler Inhale 2 puffs into the lungs every 4 hours as needed Active ClomiPRAMINE HCl (ANAFRANIL PO) Take 100 mg by mouth daily. Active hydrochlorothia zide (HYDRODIURIL) 25 MG tablet 1 tablet daily 3 Active promethazine (PHENERGAN) 25 MG tablet Take 1 tablet by mouth every 6 hours as needed 3 Active simvastatin (ZOCOR) 40 MG tablet 1 tablet nightly 3 Active docusate sodium (COLACE) 100 MG capsule Take 1 capsule by mouth 3 times daily as needed Active ALPRAZolam (XANAX) 0.5 MG tablet Take 1 tablet by mouth 2 times daily. Active budesonide-form oterol (SYMBICORT) 160-4.5 MCG/ACT AERO Inhale 1 puff into the lungs daily Active omeprazole (PRILOSEC) 20 MG capsule Take 1 capsule by mouth daily Active pramipexole (MIRAPEX) 0.125 MG tablet Take 1 tablet by mouth 2 times daily Active SUMAtriptan Succinate (IMITREX PO) Take by mouth as needed. Active metoprolol (LOPRESSOR) 100 MG tablet Take 1 tablet by mouth 2 times daily Active oxyCODONE-aceta minophen (PERCOCET) 10-325 MG per tabletIndicatio ns:Headache(784 .0),Neck pain,Migraine, unspecified, without mention of intractable migraine without mention of status migrainosus,Leg pain, bilateral,Chron ic back pain,Lumbago,De pression,Neck pain, acute,Pain in limb,Anxiety state, unspecified,Melva n in limb Take 1 tablet by mouth 5 times daily for 30 days. Fill prescription on or after 06/20/2014 150 tablet 0 4 Active oxyCODONE-aceta minophen (PERCOCET) 10-325 MG per tabletIndicatio ns:Headache(784 .0),Neck pain,Migraine, unspecified, without mention of intractable migraine without mention of status migrainosus,Leg pain, bilateral,Chron ic back pain,Lumbago,De pression,Neck pain, acute,Pain in limb,Anxiety state, unspecified,Melva n in limb Take 1 tablet by mouth 5 times daily for 30 days. Fill prescription on or after 05/22/2014 150 tablet 0 4 Active oxyCODONE-aceta minophen (PERCOCET) 5-325 MG per tablet Take 1 tablet by mouth every 4 hours as needed for Pain. Active meclizine (ANTIVERT) 25 MG tablet Take 1 tablet by mouth 3 times daily as needed Active Roflumilast (DALIRESP) 500 MCG tablet Take 1 tablet by mouth daily Active loperamide (IMODIUM) 2 MG capsule Take 1 capsule by mouth 4 times daily as needed for Diarrhea Active ALENDRONATE SODIUM PO Take 70 mg by mouth 4 Active atorvastatin (LIPITOR) 40 MG tablet Take 1 tablet by mouth daily 8 Active calcium carbonate 1500 (600 Ca) MG TABS tablet Take 1,500 mg by mouth 2 times daily 3 Active Baclofen (LIORESAL) 5 MG tablet 4 Active Active Problems Problem Noted Date Diagnosed Date Lumbosacral spondylosis without myelopathy 06/24 Lumbar degenerative disc disease 06/24/2023 Myofascial pain syndrome 06/24/2023 Neck pain 11/08/2012 Intractable headache 10/08/2012 Headache 10/08/2012 Migraine 04/20/2012 Leg pain, bilateral 09/20/2011 Neck pain, acute 09/20/2011 Lumbago 05/01/2011 Pain in limb 05/01/2011 Anxiety state 05/01/2011 Depressive disorder, not elsewhere classified Chronic back pain Fibromyalgia Bipolar disorder Osteoarthritis Bilateral low back pain with sciatica Resolved Problems Problem Noted Date Diagnosed Date Resolved Date Depression 06/21/2020 06/21/2020 Family History Medical History Relation Name Comments Alcohol Abuse Father Cancer Maternal Grandmother COPD Mother Cancer Mother Diabetes Mother Heart Attack Mother Relation Name Status Comments Father Maternal Grandmother Mother Social History Tobacco Use Types Packs/Day [...] file Not on file Not on file Last Filed Vital Signs Vital Sign Reading Time Taken Comments Blood Pressure 123/76 03/04/2024 12:51 PM EDT Pulse 70 03/04/2024 12:51 PM EDT Temperature 36.3 C (97.3 F) 06/24/2023 12:57 PM EST Respiratory Rate 15 03/04/2024 12:51 PM EDT Oxygen Saturation 5% 06/23/2015 1:52 PM EST Inhaled Oxygen Concentration - - Weight 75.3 kg (166 lb) 03/04/2024 12:51 PM EDT Height 162.6 cm (5' 4 ) 03/04/2024 12:51 PM EDT Body Mass Index 28.49 03/04/2024 12:51 PM EDT Plan of Treatment Health Maintenance Due Date Last Done Comments Lipids 1980 Depression Monitoring 1982 HIV screen 1985 Hepatitis C screen 1988 DTaP/Tdap/Td vaccine (1 - Tdap) 1989 Hepatitis B vaccine (1 of 3 - 19+ 3-dose series) 1989 Pneumococcal 50+ years Vacci ne (1 of 2 - PCV) 1989 Colonoscopy 2015 Colorectal Cancer Screen 2015 FIT/FOBT: Average risk 2015 Fecal-DNA (Cologuard): Dawn ge risk 2015 Sigmoidoscopy/CT colonography 2015 Shingles vaccine (1 of 2) 2020 Breast cancer screen 09/10/2024 09/10/2022, 08/29/2022 Flu vaccine (#1) 03/19/2025 06/24/2023, 04/15/2020 COVID-19 Vaccine (2 - 2024-2 6 season) 2025 06/24/2023 Hepatitis A vaccine Aged Out 06/02/2019, 11/21/2018 No longer eligible based on patient's age to complete this topic Hib vaccine Aged Out No longer eligi ble based on patient's age to complete this topic Meningococcal (ACWY) vaccine Aged Out No longer eligible based on patient's age to complete this topic Meningococcal B vaccine Aged Out No l onger eligible based on patient's age to complete this topic Polio vaccine Aged Out No longer elig ible based on patient's age to complete this topic Insurance [employer] Care Teams Planning Specialist Relationship Specialty Start Date End Date Robert Hathaway DO [address] [place] [address] PCP - General Family Medicine 03/04/24
--- OUTSIDE RECORDS SUMMARY | 2025-05-03 14:29 | XMS_ITS | Encounter Summary ---
Author Organization [facility] Address [address] [place] [address] Care Team Providers Care Firer Helper Name Role Phone Robert Hathaway MD Primary Care Provider + [phone] Robert Hathaway MD Primary Care Provider + [phone] Encounter Details Date Type Department Care Team (Late st Contact Info) Description 08/14/2024 Orders Only [facility] OBABRIL [address] [place] [address] Irma Horan MA [address] [facility] [place] [address] Social History Tobacco Use Types Packs/Day Years [...] [address] [place] [address] Carlos Sanchez MD [address] [facility] [address], [place] [address] documented as of this encounter Procedures Procedure Name Priority Date/Time Associated Diagnosis Comments PAP SMEAR Routine 07/29/2024 12:00 AM EST documented in this encounter Results * Pap Smear (07/29/2024 12:00 AM EST) Swab Cervical swab / Unknown us David Wilfredo DO LAB CYTOLOGY ORDERABLES Final Re sult EXTERNAL LAB documented in this encounter Visit Diagnoses Not on filedocumented in this encounter Care Teams Firer Helper Relationship Specialty Start Date End Date Robert Hathaway MD PCP - General Family Medicine 07/24/23 11/18/24 Robert Hathaway MD [address] [facility] [place] [place] [address] PCP - General Family Medicine 11/19/24 documented as of this encounter
--- OUTSIDE RECORDS SUMMARY | 2025-05-03 14:29 | XMS_ITS | Encounter Summary ---
Author Organization [facility] Address [address] [place] [address] Care Team Providers Care Manager Credit Risk Name Role Phone Robert Hathaway MD Primary Care Provider + [phone] Robert Hathaway MD Primary Care Provider + [phone] Encounter Details Date Type Department Care Team (Late st Contact Info) Description 10/09/2024 Orders Only [facility] [place] [facility] [address] [place] [address] Farida Vergara, JEREMIAH Social History Tobacco Use Types Packs/Day Years [...] [address] [place] [address] Carlos Sanchez MD [address] [facility] [address] [address] documented as of this encounter Procedures Procedure Name Priority Date/Time Associated Diagnosis Comments POLYSOMNOGRAPHY Routine 09/29/2024 8:13 AM EST documented in this encounter Results * Polysomnography (09/29/2024 8:13 AM EST) Farida Vergara [facility] ORDERABLES F inal Result documented in this encounter Visit Diagnoses Not on filedocumented in this encounter Care Teams Manager Credit Risk Relationship Specialty Start Date End Date Robert Hathaway MD PCP - General Family Medicine 07/24/23 11/18/24 Robert Hathaway MD [address] [facility] [place] [address] PCP - General Family Medicine 11/19/24 documented as of this encounter
--- OUTSIDE RECORDS SUMMARY | 2025-05-03 14:29 | XMS_ITS | Encounter Summary ---
Author Organization [employer] s tem Address [facility] [place]-[id number] [address] [place] [address] Care Team Providers Care Occupational Therapy Aide Name Role Phone Robert Hathaway Primary Care Provider [phone] Encounter Details Date Type Department Care Team (Late st Contact Info) Description 10/23/2022 [facility] [address] [place] [address] External, Scanning Provider Social History Tobacco Use [...] 1:30 PM EDT [facility] - [facility] [address] [place] [address] Robert Hathaway DO [address] [place] [address] documented as of this encounter Procedures Procedure Name Priority Date/Time Associated Diagnosis Comments CT ABDOMEN WO CONT Routine 10/23/2022 URINE CULTURE Routine 10/23/2022 MULTIPLE LABS Routine 10/19/2022 FECAL LACTOFERRIN Routine 10/19/2022 documented in this encounter Results * Urine Culture (10/23/2022) Urine us Scanning Provider External MICROBIOLOGY - GENERA L ORDERABLES Final Result Performing Organization Address [facility] de Phone Number MANUALLY TRANSCRIBED RESULTS * CT abdomen without contrast (10/23/2022) Anatomical Region Laterality Modality Body, Abdomen, Body Covera N/A Compu emeterio Tomography us Scanning Provider External IMG CT ORDERABLES Fin al Result * Multiple labs (10/19/2022) us Scanning Provider External MI IMAGING Final Result Performing Organization Address [facility] de Phone Number MANUALLY TRANSCRIBED RESULTS * Fecal lactoferrin (10/19/2022) us Scanning Provider External BODY FLUIDS AND STOOL S ORDERABLES Final Result Performing Organization Address [facility] de Phone Number MANUALLY TRANSCRIBED RESULTS documented in this encounter Visit Diagnoses Not on filedocumented in this encounter Care Teams Occupational Therapy Aide Relationship Specialty Start Date End Date Robert Hathaway DO [address], [place] [address] PCP - General Family Medicine 05/10/22 documented as of this encounter
--- OUTSIDE RECORDS SUMMARY | 2025-05-03 14:29 | XMS_ITS | Encounter Summary ---
Author Organization [employer] tem Address [facility] [place][id number] [address] [place] [address] Care Team Providers Care Optician Name Role Phone NellaRobert vila Primary Care Provider [phone] Encounter Details Date Type Department Care Team (Late st Contact Info) Description 02/28/2024 Telephone [facility] Internal Medicine - Family Medicine [address] [place] [address] Ramona Silva CMA Social History Tobacco Use Types Packs/Day Years Used Date Smoking Tobacco: Every Day Cigarettes 0.8 35 Started: 04/15/1988; Last attempted to quit: 04/15/2023 Smokeless Tobacco: Never Alcohol Use Standard Drinks/Week Comments Not Currently 0 (1 standard drink = 0.6 oz pur e alcohol) [facility] Utilities Answer Date Recorded In the past 12 months has [employer], gas, oil, or water [employer] threatened to shut off services in your [...] Answer Date Recorded Total Score 0 02/27/2024 [facility] - Occupational [...] Recorded Do you need help finding a [facility] career center and/or a [...] Telephone Encounter - Ramona Silva CMA - 02/28/2024 10:17 AM EDT Pt called and she needs a reader for the Free style LUCERO.will you send in one? [facility] [place]. documented in this encounter Plan of Treatment Upcoming Encounters Date Type Department Care Team (Late st Contact Info) Description 06/17/2025 1:30 PM EDT Office Visit [facility] Internal Medicine - Family Medicine [address] [place] [address] Robert Hathaway DO [address], [facility] [place] [address] documented as of this encounter Visit Diagnoses Not on filedocumented in this encounter Additional Health Concerns Assessment Noted Time PHQ-9 Depression Total Score: 0 02/27/20 24 11:10 AM EDT A Body Mass Index follow-up plan has been documented for the patient 07/10/2023 3:34 PM EST documented as of this encounter Care Teams Optician Relationship Specialty Start Date End Date Robert Hathaway DO [address], [facility] [place] [address] PCP - General Family Medicine 05/10/22 documented as of this encounter
--- OUTSIDE RECORDS SUMMARY | 2025-05-03 14:29 | XMS_ITS | Encounter Summary ---
Author Organization [employer] s tem Address [facility] [id number] [address] [place] [address] Care Team Providers Care Counter Top Maker Name Role Phone Robert Hathaway Primary Care Provider + [phone] Reason for Visit * Reason Onset Date Comments Med Refill 06/11/2022 Encounter Details Date Type Department Care Team (Late st Contact Info) Description 06/11/2022 Refill [facility] Internal Medicine - Family Medicine [address] [place] [address] Kaylynn Weber MA Social History Tobacco Use Types Packs/Day Years [...] have Coronavirus / COVID-19? No / Unsure 06/06/2022 7:14 AM EDT documented as of this encounter Plan of Treatment Upcoming Encounters Date Type Department Care Team (Late st Contact Info) Description 06/17/2025 1:30 PM EDT Office Visit [facility] Internal Medicine - Family Medicine [address] [place] [address] Robert Hathaway DO [address] [facility] [place] [address] documented as of this encounter Visit Diagnoses Not on filedocumented in this encounter Care Teams Counter Top Maker Relationship Specialty Start Date End Date Robert Hathaway DO [address] [facility] [place] [address] PCP - General Family Medicine 05/10/22 documented as of this encounter
--- OUTSIDE RECORDS SUMMARY | 2025-05-03 14:29 | XMS_ITS | Encounter Summary ---
Author Organization [employer] s tem Address [id number] [address] [place] [address] Care Team Providers Care Washer Cutter Name Role Phone Robert Hathaway Primary Care Provider + [phone] Reason for Visit * Reason Onset Date Comments Med Refill 07/02/2022 Encounter Details Date Type Department Care Team (Late st Contact Info) Description 07/02/2022 [facility] [address] [place] [phone] Lary Soto CMA Social History Tobacco Use Types Packs/Day [...] Medicine - Family Medicine [address] [place] [address] Robert Hathaway DO [address] [facility] [place] [address] documented as of this encounter Visit Diagnoses Not on filedocumented in this encounter Care Teams Washer Cutter Relationship Specialty Start Date End Date Robert Hathaway DO [address] [facility] [place] [address] PCP - General Family Medicine 05/10/22 documented as of this encounter
--- OUTSIDE RECORDS SUMMARY | 2025-05-03 14:29 | XMS_ITS | Encounter Summary ---
Author Organization [facility] tem Address [id number] [address] [place] [address] Care Team Providers Care Tubing Supervisor Name Role Phone Robert Hathaway DO Primary Care Provider [phone] Encounter Details Date Type Department Care Team ([facility] Contact Info) Description 06/11/2022 Orders Only [facility] Internal Medicine - Family Medicine [address] [place] [address] Robert Hathaway DO [address] [facility] [place] [address] Social History Tobacco Use Types Packs/Day Years [...] Upcoming Encounters Date Type Department Care Team ([facility] Contact Info) Description 06/17/2025 1:30 PM EDT Office Visit [facility] Internal Medicine - Family Medicine [address] [place] [address] Robert Hathaway DO [address], [place] [address] documented as of this encounter Visit Diagnoses Not on filedocumented in this encounter Care Teams Tubing Supervisor Relationship Specialty Start Date End Date Robert Hathaway DO [address] [facility] [place] [address] PCP - General Family Medicine 05/10/22 documented as of this encounter
--- OUTSIDE RECORDS SUMMARY | 2025-05-03 14:29 | XMS_ITS | Encounter Summary ---
Author Organization [facility] Address [address] [place] [address] Care Team Providers Care Police Manager Name Role Phone Robert Hathaway MD Primary Care Provider + [phone] Robert Hathaway MD Primary Care Provider + [phone] Encounter Details Date Type Department Care Team (Late st Contact Info) Description 09/23/2024 Orders Only [facility] [place] [facility] [address] [place] [address] Farida Vergara, JEREMIAH Social History Tobacco Use [...] [facility] [place] [facility] [address] [facility] [address] [place] [address] Carlos Sanchez MD [address] [facility] [address] [address] documented as of this encounter Visit Diagnoses Not on filedocumented in this encounter Care Teams Police Manager Relationship Specialty Start Date End Date Robert Hathaway MD PCP - General Family Medicine 07/24/23 11/18/24 Robert Hathaway MD [address] [facility] [place] [address] PCP - General Family Medicine 11/19/24 documented as of this encounter
--- OUTSIDE RECORDS SUMMARY | 2025-05-03 14:29 | XMS_ITS | Encounter Summary ---
Author Organization [facility] Address [address] [place] [address] Care Team Providers Care Yeast Pusher Name Role Phone Robert Hathaway DO Primary Care Provider [phone] Reason for Visit * Reason Onset Date Comments Med Refill 08/07/2024 Encounter Details Date Type Department Care Team (Late st Contact Info) Description 08/07/2024 Refill [facility] [address] [place] [address] [place] [address] Gregoria Peterson MA Cubital tunnel syndrome on left; Carpal tunnel syndrome of left wrist Social History Tobacco Use Types Packs/Day Years Used Date Smoking Tobacco: Every Day Cigarettes Smokeless Tobacco: Never Alcohol Use Standard Drinks/Week Comments Not Currently 0 (1 standard drink = 0.6 oz pur e alcohol) Humiliation, Afraid, Rape, and Kick questionnair e Answer Date Recorded Within the last year, have y ou been afraid of your partner or ex-partner? No 06/16/2024 Emotionally Abused Not on file 06/16/2024 Physically Abused Not on file 06/16/2024 Sexually Abused Not on file 06/16/2024 PHQ-2 Answer Date Recorded Patient Health Questionnaire-2 Score 0 06/16/2024 Comments Unknown Sex and Gender Information Value Date Recorded Sex Assigned at Female 06/16/2024 3:16 PM EDT Legal Sex Female 9:51 PM EDT Gender Identity Female 06/16/2024 3:16 PM EDT Sexual Orientation Don't know 06/16/2024 3: 16 PM EDT documented as of this encounter Miscellaneous Notes * Telephone Encounter - Oumar Segovia MD - 08/10/2024 1:52 PM EST Already filled * Telephone Encounter - Theresa Ho MA - 08/10/2024 1:37 PM EST Patient called requesting refill. Patient called to request refill on Perocoet Please see pended medication. [facility] # [phone] * Telephone Encounter - Nica Choi MA - 08/10/2024 10:59 AM EST Patient called again today stating that the pharmacy has not received a script for the Percocet 5-325 mg. Please advise. Thank you. * Telephone Encounter - Sandra Polanco MA - 08/08/2024 9:00 AM EST Order was put in and pharmacy was changed, waiting for approval * Telephone Encounter - Gregoria Peterson MA - 08/07/2024 4:05 PM EST Patient states she needs her medication transferred [facility] the [facility] in [facility] [place] [address] Please contact patient with any problems or concerns at [phone] documented in this encounter Plan of Treatment Upcoming Encounters Date Type Department Care Team (Late st Contact Info) Description 06/09/2025 1:45 PM EDT Follow-Up [facility] [address] [place] [address] [place] [phone] Emiliana Abad MD [address] [place] [address] [place] [address] documented as of this encounter Visit Diagnoses Diagnosis Cubital tunnel syndrome on left Carpal tunnel syndrome of left wrist documented in this encounter Care Teams Yeast Pusher Relationship Specialty Start Date End Date DeaconRobert augustin [address] [facility], [place] [address] PCP - General Family Medicine 06/16/24 documented as of this encounter
--- OUTSIDE RECORDS SUMMARY | 2025-05-03 14:29 | XMS_ITS | Encounter Summary ---
Author Organization [employer] [facility] tem Address [facility] [place]-[id number] [address] [place] [address] Care Team Providers Care Stem Mounter Name Role Phone Robert Hathaway DO Primary Care Provider + [phone] Reason for Visit * Reason Onset Date Comments Med Refill 05/07/2022 Encounter Details Date Type Department Care Team (Late Contact Info) Description 05/07/2022 [facility] [address] [place] [address] Lary Soto CMA Social History Tobacco Use [...] - Family Medicine [address] [place] [address] Robert Hathaway DO [address], [place] [address] documented as of this encounter Visit Diagnoses Not on filedocumented in this encounter Care Teams Stem Mounter Relationship Specialty Start Date End Date Robert Hathaway DO [address], [place] [address] PCP - General Family Medicine 05/10/22 documented as of this encounter
--- OUTSIDE RECORDS SUMMARY | 2025-05-03 14:29 | XMS_ITS | Encounter Summary ---
Author Organization [facility] Address [address] [facility] [address], [address] [place] [address] Care Team Providers Care Tractor Crane Operator Name Role Phone Robert Hathaway DO Primary Care Provider Reason for Visit * Reason Comments Medication Refill Encounter Details Date Type Department Care Team (Late st Contact Info) Description 12/14/2011 Refill [facility] [address] [place] [address] Alli Caal MD [address] [place] [address] Medication Refill Social History Tobacco Use Types [...] on filedocumented in this encounter Care Teams Tractor Crane Operator Relationship Specialty Start Date End Date Robert Hathaway DO [address] [place] [address] PCP - General Family Medicine 03/04/24 documented as of this encounter
--- OUTSIDE RECORDS SUMMARY | 2025-05-03 14:29 | XMS_ITS | Encounter Summary ---
Author Organization [employer] [facility] tem Address [id number] [address] [place] [address] Care Team Providers Care Aquatic Physiotherapist Name Role Phone Robert Hathaway Primary Care Provider + [phone] Reason for Visit * Reason Onset Date Comments Med Refill 11/07/2022 Encounter Details Date Type Department Care Team (Late Contact Info) Description 11/07/2022 Refill [facility] Internal Medicine - Family Medicine [address] [place] [address] Lary Soto CMA Anxiety state Social History [...] Medicine [address] [place] [address] Robert Hathaway DO [address] [facility] [place] [address] documented as of this encounter Visit Diagnoses Diagnosis Anxiety state Anxiety state, unspecified documented in this encounter Care Teams Aquatic Physiotherapist Relationship Specialty Start Date End Date Robert Hathaway DO [address] [facility] [place] [address] PCP - General Family Medicine 05/10/22 documented as of this encounter
--- OUTSIDE RECORDS SUMMARY | 2025-05-03 14:29 | XMS_ITS | Encounter Summary ---
Author Organization [facility] Address [facility] [id number] [address] [place] [address] Care Team Providers Care Middle School Combination Teacher Name Role Phone Robert Hathaway DO Primary Care Provider + [phone] Reason for Visit * Reason Comments Med Refill Encounter Details Date Type Department Care Team (Late st Contact Info) Description 07/03/2022 Refill [facility] Internal Medicine - Family Medicine [address] [place] [address] Robert Hathaway DO [address] [facility] [place] [address] Social History Tobacco Use Types Packs/Day Years [...] Medicine - Family Medicine [address] [place] [address] Robert Hathaway DO [address], [facility] [place] [address] documented as of this encounter Visit Diagnoses Not on filedocumented in this encounter Care Teams [employer] Combination Teacher Relationship Specialty Start Date End Date Robert Hathaway DO [address] [address] PCP - General Family Medicine 05/10/22 documented as of this encounter
--- OUTSIDE RECORDS SUMMARY | 2025-05-03 14:29 | XMS_ITS | Encounter Summary ---
Author Organization [facility] Address [address] [place] [address] Care Team Providers Care Mill Washer Name Role Phone Robert Hathaway MD Primary Care Provider + [phone] Robert Hathaway MD Primary Care Provider + [phone] Encounter Details Date Type Department Care Team (Late st Contact Info) Description 08/27/2024 Clinisync Result Encounter [facility] Department Unsolicited Frederick Villalobos, DO [address] Wesley [place] [id number] Social History Tobacco Use Types Packs/Day Years [...] 06/10/2025 2:00 PM EDT Office Visit [facility] [address] [place] [address] Carlos Sanchez MD [address] [facility] [address] [address] documented as of this encounter Procedures Procedure Name Priority Date/Time Associated Diagnosis Comments XR DEXA AXIAL SKELETON 08/27/2024 2:15 PM EST documented in this encounter Results * XR DEXA AXIAL SKELETON (08/27/2024 2:15 PM EST) Anatomical Region Laterality Modality Other 08/27/2024 2:15 PM EST Narrative 08/27/2024 2:18 PM EST [address] [address] XRay Report Signed Patient: ROCK MEZA MR#: [id number] : 1970 Acct:[id number] Age/Sex: 54 / F ADM Date: 08/27/24 Loc: [facility] Attending Dr: Frederick Villalobos D.O. Ordering Physician: Frederick Villalobos D.O. Date of Service: 08/27/24 Procedure(s): XR DEXA axial skeleton Accession Number(s): [id number] cc: ROBERT HATHAWAY ; Frederick Villalobos D.O. [address] [id number] Patient Name: ROCK MEZA MRN: [id number] date: 1970 Sex: F Assigned Patient Location: RAD Current Patient Location: RAD Accession/Order Number: [id number] Exam Date: 08/27/2024 13:35 Report Date: 08/27/2024 14:15 At the request of: FREDERICK VILLALOBOS Procedure: XR DEXA axial skeleton EXAMINATION: XR DEXA axial skeleton, 08/27/2024 1:35 PM EST HISTORY: Osteoporosis COMPARISON: 2021. TECHNIQUE: Dual-energy X-ray absorptiometry (DEXA) bone density study performed for the axial skeleton. FINDINGS: Bone mineral density AP spine L1-L4 measures 1.153 g/sq cm. T score -0.2. Normal. Lowest bone mineral density is in the right femoral trochanter measuring 0.577 g/sq cm T score -2.4. Osteopenia XR/XR DEXA axial skeleton IMPRESSION: Osteopenia. Moderate fracture risk Pharmacologic treatment recommendations * No uniform recommendation applies to all patients. Management plans must be individualized. * Consider initiating pharmacologic treatment in postmenopausal women and men >= 50 years of age who have the following: Primary fracture prevention: * T-score <= - 2.5 at the femoral neck, total hip, lumbar spine, 33% radius (some uncertainty with existing data) by DXA. * Low bone mass (osteopenia: T-score between - 1.0 and - 2.5) at the femoral neck or total hip by DXA with a 10-year hip fracture risk >= 3% or a 10-year major osteoporosis-related fracture risk >= 20% (i.e., clinical vertebral, hip, forearm, or proximal humerus) based on the US-adapted FRAXregistered model. Secondary fracture prevention: * Fracture of the hip or vertebra regardless of BMD [4, 5]. * Fracture of proximal humerus, pelvis, or distal forearm in persons with low bone mass (osteopenia: T-score between - 1.0 and - 2.5). The decision to treat should be individualized in persons with a fracture of the proximal humerus, pelvis, or distal forearm who do not have osteopenia or low BMD [12, 13]. Juno MS, Micaela SL, Coy KL, Dora EM, Joceline KG, AJ, Catherine ES. The clinician's guide to prevention and treatment of osteoporosis. Osteoporos Int. 2021;33(10):0562-0485. doi: 10.1007/e72633-542-91988-s. Epub 2021Dec 14. Erratum in: Osteoporos Int. 2021Mar 15;: PMID: 08026037; PMCID: [id number]. Electronically authenticated by: MAMIE HERNANDEZ Date: 08/27/2024 14:15 Dictated By: Mamie Hernandez M.D. Signed By: 08/27/24 1418 DD/ 1415 TD/TT: Saw Offbearer: Procedure Note Radiology, Radiologist, - 08/27/2024 [place] [address] XRay Report Signed Patient: ROCK MEZA R#: [id number] : 1970Acct:[id number] Age/Sex: 54 / FADM Date: 08/27/24 Loc: RAD Attending Dr: Frederick Villalobos D.O. Ordering Physician: Frederick Villalobos D.O. Date of Service: 08/27/24 Procedure(s): XR DEXA axial skeleton Accession Number(s): [id number] cc: ROBERT HATHAWAY Corey D.O. [place] [address] Patient Name: ROCK MEZA MRN: [id number] date: 1970 Sex: F Assigned Patient Location: [facility] Current Patient Location: [facility] Accession/Order Number: [id number] Exam Date: 08/27/2024 13:35 Report Date: 08/27/2024 14:15 At the request of: FREDERICK VILLALOBOS Procedure: XR DEXA axial skeleton EXAMINATION: XR DEXA axial skeleton, 08/27/2024 1:35 PM EST HISTORY: Osteoporosis COMPARISON: 2021. TECHNIQUE: Dual-energy X-ray absorptiometry (DEXA) bone density study performed for the axial skeleton. FINDINGS: Bone mineral density AP spine L1-L4 measures 1.153 g/sq cm. T score -0.2. Normal. Lowest bone mineral density is in the right femoral trochanter measuring0.577 g/sq cm T score -2.4. Osteopenia XR/XR DEXA axial skeleton IMPRESSION: Osteopenia. Moderate fracture risk Pharmacologic treatment recommendations * No uniform recommendation applies to all patients. Management plans mustbe individualized. * Consider initiating pharmacologic treatment in postmenopausal women andmen >= 50 years of age who have the following: Primary fracture prevention: * T-score <= - 2.5 at the femoral neck, total hip, lumbar spine, 33%radius (some uncertainty with existing data) by DXA. * Low bone mass (osteopenia: T-score between - 1.0 and - 2.5) at thefemoral neck or total hip by DXA with a 10-year hip fracture risk >= 3% or [id number] major osteoporosis-related fracture risk >= 20% (i.e., clinical vertebral, hip, forearm, or proximal humerus) based on the US-adapted FRAXregisteredmodel. Secondary fracture prevention: * Fracture of the hip or vertebra regardless of BMD [4, 5]. * Fracture of proximal humerus, pelvis, or distal forearm in persons withlow bone mass (osteopenia: T-score between - 1.0 and - 2.5). The decision totreat should be individualized in persons with a fracture of the proximalhumerus, pelvis, or distal forearm who do not have osteopenia or low BMD [12, 13]. Juno MS, Micaela SL, Coy KL, Dora EM, Joceline KG, AJ,Catherine ES. The clinician's guide to prevention and treatment of osteoporosis.Osteoporos Int. 2021;33(10):9488-8558. doi: 10.1007/n36854-820-13051-v. Epub . Erratum in: Osteoporos Int. 2021Mar 15;: PMID: 99005680; PMCID: [id number]. Electronically authenticated by: MAMIE HERNANDEZ Date: 08/27/2024 14:15 Dictated By: Mamie Hernandez M.D. Signed By:08/27/24 1418 DD/ 141 TD/TT: Saw Offbearer: [facility] Wilfredo DO [facility] Final Result documented in this encounter Visit Diagnoses Not on filedocumented in this encounter Care Teams Mill Washer Relationship Specialty Start Date End Date Robert Hathaway MD PCP - General Family Medicine 07/24/23 11/18/24 Robert Hathaway MD [address] [facility] [place] [address] PCP - General Family Medicine 11/19/24 documented as of this encounter
--- OUTSIDE RECORDS SUMMARY | 2025-05-03 14:29 | XMS_ITS | Encounter Summary ---
Author Organization [facility] tem Address [id number] [address] [place] [address] Care Team Providers Care Merchandise Handler Name Role Phone Robert Hathaway DO Primary Care Provider + [phone] Reason for Visit * Reason Comments Med Refill Encounter Details Date Type Department Care Team (Late Contact Info) Description 05/08/2022 Refill [facility] Internal [facility] - Family Medicine [address] [place] [address] Robert Hathaway DO [address], [email or web address] [place] [address] Social History Tobacco Use Types Packs/Day Years [...] Description 06/17/2025 1:30 PM EDT [facility] [address] [place] [address] Robert Hathaway DO [address] [facility] [place] [address] documented as of this encounter Visit Diagnoses Not on filedocumented in this encounter Care Teams Merchandise Handler Relationship Specialty Start Date End Date Robert Hathaway DO [address] [facility] [place] [address] PCP - General Family Medicine 05/10/22 documented as of this encounter
--- OUTSIDE RECORDS SUMMARY | 2025-05-03 14:29 | XMS_ITS | Encounter Summary ---
Author Organization [employer] tem Address [id number] [address] [place] [address] Care Team Providers Care Target Worker Name Role Phone NellaRobert vila Primary Care Provider [phone] Encounter Details Date Type Department Care Team (Late st Contact Info) Description 06/10/2024 [facility]phone [facility] [address] [place] [address] Ramona Silva CMA Social History Tobacco Use Types Packs/Day Years Used Date Smoking Tobacco: Every Day Cigarettes 0.8 35 Started: 04/15/1988; Last attempted to quit: 04/15/2023 Smokeless Tobacco: Never Alcohol Use Standard Drinks/Week Comments Not Currently 0 (1 standard drink = 0.6 oz pur e alcohol) [facility] Utilities Answer Date Recorded In the past 12 months has [employer], gas, oil, or water [employer] threatened to shut off services in [...] often do you attend chur ch or sikhism services? Never 01/24/2023 Do you belong to any clubs o r organizations such as amish groups, unions, fraternal or athletic groups, or [...] Answer Date Recorded Total Score 0 04/30/2024 [facility]at ional [facility] [...] Telephone Encounter - Ramona Silva CMA - 06/10/2024 9:34 AM EDT Pt got a nerve block on 06/05. It did not work. She has been excused from Pain Mangement.Because there is nothing else they can do. Per Pain Management. Could you send her in something for pain. She rates it at a 10. Pharmacy is listed and correct. documented in this encounter Plan of Treatment Upcoming Encounters Date Type Department Care Team (Late st Contact Info) Description 06/17/2025 1:30 PM EDT Office Visit [facility] Internal Medicine - Family Medicine [address] [place] [address] Robert Hathaway DO [address] [facility] [place] [address] documented as of this encounter Visit Diagnoses Not on filedocumented in this encounter Additional Health Concerns Assessment Noted Time PHQ-9 Depression Total Score: 0 04/30/20 24 1:58 PM EDT A Body Mass Index follow-up plan has been documented for the patient 07/10/2023 3:34 PM EST documented as of this encounter Care Teams Target Worker Relationship Specialty Start Date End Date Robert Hathaway DO [address] [place] [address] PCP - General Family Medicine 05/10/22 documented as of this encounter
--- OUTSIDE RECORDS SUMMARY | 2025-05-03 14:29 | XMS_ITS | Encounter Summary ---
Author Organization [employer] [facility] tem Address [id number] [address] [place] [address] Care Team Providers Care Gis Developer Name Role Phone Robert Hathaway DO Primary Care Provider + [phone] Reason for Visit * Reason Onset Date Comments Med Refill 09/11/2022 Encounter Details Date Type Department Care Team (Late Contact Info) Description 09/11/2022 Refill [facility] Internal Medicine - Family Medicine [address] [place] [address] Lary [place] CMA Social History Tobacco Use [...] Medicine - Family Medicine [address] [place] [address] Robert Hathaway DO [address] [place] [address] documented as of this encounter Visit Diagnoses Not on filedocumented in this encounter Care Teams Gis Developer Relationship Specialty Start Date End Date Robert Hathaway DO [address], [place] [address] PCP - General Family Medicine 05/10/22 documented as of this encounter
--- OUTSIDE RECORDS SUMMARY | 2025-05-03 14:29 | XMS_ITS | Encounter Summary ---
Author Organization [employer] [facility] tem Address [facility][id number] [address] [place] [address] Care Team Providers Care Warehouse Insulation Worker Name Role Phone Robert Hathaway Primary Care Provider [phone] Encounter Details Date Type Department Care Team (Late st Contact Info) Description 05/24/2022 Orders Only [facility] Internal Medicine - Family Medicine [address] [place] [address] External, Scanning Provider Social History Tobacco Use [...] have Coronavirus / COVID-19? No / Unsure 05/22/2022 4:24 PM EDT documented as of this encounter Plan of Treatment Upcoming Encounters Date Type Department Care Team (Late Contact Info) Description 06/17/2025 1:30 PM EDT [facility] [address] [place] [address] Robert Hathaway DO [address], [place] [address] documented as of this encounter Procedures Procedure Name Priority Date/Time Associated Diagnosis Comments ECG 12-LEAD Routine 05/15/2022 documented in this encounter Results * ECG 12 lead (05/15/2022) 05/15/2022 us Scanning Provider External ECG ORDERABLES Final Result MANUALLY TRANSCRIBED RESULTS documented in this encounter Visit Diagnoses Not on filedocumented in this encounter Care Teams Warehouse Insulation Worker Relationship Specialty Start Date End Date Robert Hathawya DO [address], [place] [address] PCP - General Family Medicine 05/10/22 documented as of this encounter
--- OUTSIDE RECORDS SUMMARY | 2025-05-03 14:29 | XMS_ITS | Encounter Summary ---
Author Organization [email or web address] [facility] tem Address [id number] [address] [place] [address] Care Team Providers Care Seed Core Operator Name Role Phone Robert Hathaway Primary Care Provider + [phone] Encounter Details Date Type Department Care Team (Late st Contact Info) Description 03/26/2024 Telephone [facility] Internal Medicine - Family Medicine [address] [place] [address] Simi Petty CMA Social History Tobacco Use Types Packs/Day Years Used Date Smoking Tobacco: Every Day Cigarettes 0.8 35 Started: 04/15/1988; Last attempted to quit: 04/15/2023 Smokeless Tobacco: Never Alcohol Use Standard Drinks/Week Comments Not Currently 0 (1 standard drink = 0.6 oz pur e alcohol) [facility] Utilities Answer Date Recorded In the past 12 months has [employer], gas, oil, or water [employer] threatened to shut off services in your [...] any clubs o r organizations such as religion groups, unions, fraternal or athletic groups, or [...] Answer Date Recorded Total Score 0 02/27/2024 [facility] - Occupational Stress Questionnaire Answer [...] - Family Medicine [address] [place] [address] Rboert Hathaway DO [address] [facility] [address] documented as of this encounter Visit Diagnoses Not on filedocumented in this encounter Additional Health Concerns Assessment Noted Time PHQ-9 Depression Total Score: 0 02/27/20 24 11:10 AM EDT A Body Mass Index follow-up plan has been documented for the patient 07/10/2023 3:34 PM EST documented as of this encounter Care Teams Seed Core Operator Relationship Specialty Start Date End Date Robert Hathaway DO [address] [facility] [address] PCP - General Family Medicine 05/10/22 documented as of this encounter
--- OUTSIDE RECORDS SUMMARY | 2025-05-03 14:30 | XMS_ITS | Encounter Summary ---
Author Organization [facility] Address [address] [place] [address] Care Team Providers Care Dental Hygiene Administrative Assistant Name Role Phone Robert Hathaway DO Primary Care Provider [phone] Encounter Details Date Type Department Care Team (Late st Contact Info) Description 05/03/2025 Telephone [facility] [address] [place] [address] [place] [address] Sandra Polanco MA Social History Tobacco Use Types Packs/Day Years Used Date Smoking Tobacco: Every Day Cigarettes Smokeless Tobacco: Never Alcohol Use Standard Drinks/Week Comments Not Currently 0 (1 standard drink = 0.6 oz pur e alcohol) Humiliation, Afraid, Rape, and Kick questionnair e Answer Date Recorded Within the last year, have y ou been afraid of your partner or ex-partner? No 11/03/2024 Emotionally Abused Not on file 11/03/2024 Physically Abused Not on file 11/03/2024 Sexually Abused Not on file 11/03/2024 PHQ-2 Answer Date Recorded Patient Health Questionnaire-2 Score 0 11/03/2024 Comments Unknown Sex and Gender Information Value Date Recorded Sex Assigned at Female 06/16/2024 3:16 PM EDT Legal Sex Female 9:51 PM EDT Gender Identity Female 06/16/2024 3:16 PM EDT Sexual Orientation Don't know 06/16/2024 3: 16 PM EDT documented as of this encounter Miscellaneous Notes * Telephone Encounter - Sandra Polanco MA - 05/03/2025 11:37 AM EDT Patient called wanting a sooner appointment, states that she needs a knee replacement but doesn't want to have it in the winter, I moved her to jun 09 where there was an opening but patient wantsto know if we can get her in sooner. Informed patient that we will call her back to let her know documented in this encounter Plan of Treatment Upcoming Encounters Date Type Department Care Team (Late st Contact Info) Description 06/09/2025 1:45 PM EDT Follow-Up [facility] [address] [place] [address] [place] [address] Emiliana Abad MD [address] [place] [address] [place] [address] documented as of this encounter Visit Diagnoses Not on filedocumented in this encounter Care Teams Dental Hygiene Administrative Assistant Relationship Specialty Start Date End Date Robert Hathaway DO [address] [facility], [place] [address] PCP - General Family Medicine 06/16/24 documented as of this encounter
--- OUTSIDE RECORDS SUMMARY | 2025-05-03 14:30 | XMS_ITS | Encounter Summary ---
Author Organization [facility] Address [facility][id number] [address] [place] [address] Care Team Providers Care Police Patrol Lieutenant Name Role Phone Robert Hathaway DO Primary Care Provider [phone] Encounter Details Date Type Department Care Team (Late st Contact Info) Description 12/19/2023 Orders Only [facility] Internal Medicine - Family Medicine [address] [place] [address] Robert Hathaway DO [address] [facility] [place] [address] Social History Tobacco Use Types Packs/Day Years Used Date Smoking Tobacco: Every Day Cigarettes 0.8 35 Started: 04/15/1988; Last attempted to quit: 04/15/2023 Smokeless Tobacco: Never Comments:Smoke 1 [employer] x 10 ye ars Alcohol Use Standard Drinks/Week Comments Not Currently 0 (1 standard drink = 0.6 oz pur e alcohol) [facility] Utilities Answer Date Recorded In the past 12 months has [employer], gas, oil, or water company threatened [...] often do you attend chur ch or yarsanism services? Never 01/24/2023 Do you belong to any clubs o r organizations such as samaritan groups, unions, fraternal or athletic groups, or [...] Answer Date Recorded Total Score 7 12/18/2023 [facility] Occupat ional Health - Occupational Stress [...] - Family Medicine [address] [place] [address] Robert Hathaway DO [address] [facility] [place] [address] documented as of this encounter Visit Diagnoses Not on filedocumented in this encounter Additional Health Concerns Assessment Noted Time PHQ-9 Depression Total Score: 7 12/18/19 24 2:52 PM EDT A Body Mass Index follow-up plan has been documented for the patient 07/10/2023 3:34 PM EST documented as of this encounter Care Teams Police Patrol Lieutenant Relationship Specialty Start Date End Date Robert Hathaway DO [address] [facility] [address] PCP - General Family Medicine 05/10/22 documented as of this encounter
--- OUTSIDE RECORDS SUMMARY | 2025-05-03 14:30 | XMS_ITS | Encounter Summary ---
Author Organization [facility] Address [id number] [address] [place] [address] Care Team Providers Care Emergency Room Specialist Name Role Phone Robert Hathaway DO Primary Care Provider + [phone] Reason for Visit * Reason Onset Date Comments Med Refill 12/29/2023 Encounter Details Date Type Department Care Team (Late st Contact Info) Description 12/29/2023 Refill [facility] Internal Medicine - Family Medicine [address] [place] [address] Robert Hathaway DO [address], [facility] [place] [address] Social History Tobacco Use Types Packs/Day Years Used Date Smoking Tobacco: Every Day Cigarettes 0.8 35 Started: 04/15/1988; Last attempted to quit: 04/15/2023 Smokeless Tobacco: Never Comments:Smoke 1 P[employer] x 10 ye ars Alcohol Use Standard Drinks/Week Comments Not Currently 0 (1 standard drink = 0.6 oz pur e alcohol) [facility] Utilities Answer Date Recorded In the past 12 months has [employer], gas, oil, or water company threatened to [...] any clubs o r organizations such as moravian groups, unions, fraternal or athletic groups, or [...] Answer Date Recorded Total Score 7 12/18/2023 [facility] of Occupat ional [...] you need help finding a [facility] career center and/or a training program? No [...] - Family Medicine [address] [place] [address] Robert Hathaway DO [address] [facility] [place] [address] documented as of this encounter Visit Diagnoses Not on filedocumented in this encounter Additional Health Concerns Assessment Noted Time PHQ-9 Depression Total Score: 7 12/18/19 24 2:52 PM EDT A Body Mass Index follow-up plan has been documented for the patient 07/10/2023 3:34 PM EST documented as of this encounter Care Teams Emergency Room Specialist Relationship Specialty Start Date End Date Robert Hathaway DO [address] [facility] [place] [address] PCP - General Family Medicine 05/10/22 documented as of this encounter
--- OUTSIDE RECORDS SUMMARY | 2025-05-03 14:30 | XMS_ITS | Encounter Summary ---
Author Organization [facility] Sys tem Address [id number] [address] [place] [address] Care Team Providers Care Print Shop Stenographer Name Role Phone NellaRobert vila Primary Care Provider + [phone] Encounter Details Date Type Department Care Team (Late st Contact Info) Description 10/21/2023 Orders Only [facility] - [facility] Medicine [address] [place] [phone] External, Scanning Provider Social History Tobacco Use Types Packs/Day Years Used Date Smoking Tobacco: Former Cigarettes 0.8 35 0 04/15/1988 - 04/15/2023 Smokeless Tobacco: Never Comments:Smoke 1 PPD x 10 ye ars Alcohol Use Standard Drinks/Week Comments Not Currently 0 (1 standard drink = 0.6 oz pur e alcohol) [facility] Utilities Answer Date Recorded In the past 12 months has [employer], gas, oil, or water [employer] threatened to shut off services in your [...] often do you attend chur ch or pentecostal services? Never 01/24/2023 Do you belong to any clubs o r organizations such as worship groups, unions, fraternal or athletic groups, or [...] Answer Date Recorded Total Score 0 10/03/2023 [facility] of Occupat ional Health - Occupational [...] Recorded Do you need help finding a [facility] and/or a training [...] Medicine [address] [place] [address] Robert Hathaway, DO [address] [place] [place] [address] documented as of this encounter Procedures Procedure Name Priority Date/Time Associated Diagnosis Comments MULTIPLE LABS Routine 09/21/2023 8:57 AM EST ECG 12-LEAD Routine 09/20/2023 9:12 AM EST XR CHEST 2 VWS Routine 09/20/2023 9:04 AM EST documented in this encounter Results * Multiple labs (09/21/2023 8:57 AM EST) us Scanning Provider External NM IMAGING Final Result Performing Organization Address [facility] de Phone Number MANUALLY TRANSCRIBED RESULTS * ECG 12 lead (09/20/2023 9:12 AM EST) us Scanning Provider External ECG ORDERABLES Final Result Performing Organization Address [facility] de Phone Number MANUALLY TRANSCRIBED RESULTS * X-ray chest 2 views (09/20/2023 9:04 AM EST) Anatomical Region Laterality Modality Body, Chest N/A Computed Radiogr aphy us Scanning Provider External IMG DIAGNOSTIC IMAGIN G ORDERABLES Final Result documented in this encounter Visit Diagnoses Not on filedocumented in this encounter Additional Health Concerns Assessment Noted Time PHQ-9 Depression Total Score: 0 10/03/19 24 4:13 PM EST A Body Mass Index follow-up plan has been documented for the patient 07/10/2023 3:34 PM EST documented as of this encounter Care Teams Print Shop Stenographer Relationship Specialty Start Date End Date Robert Hathaway DO [address] [facility] [place] [address] PCP - General Family Medicine 05/10/22 documented as of this encounter
--- OUTSIDE RECORDS SUMMARY | 2025-05-03 14:30 | XMS_ITS | Encounter Summary ---
Author Organization [facility] Address [facility] [id number] [address] [place] [address] Care Team Providers Care Quality Auditor Name Role Phone Robert Hathaway Primary Care Provider + [phone] Reason for Visit * Reason Comments Med Refill Encounter Details Date Type Department Care Team (Late st Contact Info) Description 12/31/2023 Refill [facility] - [facility] Medicine [address] [place] [place] [phone] Karina Martin, EAR SPECIALIST-SPORTS MANAGEMENT INTERN [address] [place] [address] Anxiety state Social History Tobacco Use Types Packs/Day Years Used Date Smoking Tobacco: Every Day Cigarettes 0.8 35 Started: 04/15/1988; Last attempted to quit: 04/15/2023 Smokeless Tobacco: Never Comments:Smoke 1 PPD x 10 ye ars Alcohol Use Standard Drinks/Week Comments Not Currently 0 (1 standard drink = 0.6 oz pur e alcohol) [facility] Utilities Answer Date Recorded In the past 12 months has [employer], gas, oil, or water company threatened to [...] often do you attend chur ch or gnosticism services? Never 01/24/2023 Do you belong to any clubs o r organizations such as methodist groups, unions, fraternal or athletic groups, or [...] Answer Date Recorded Total Score 7 12/18/2023 [facility] of Occupat ional Health - [...] Recorded Do you need help finding a [facility] career center and/or a training program? [...] - Family Medicine [address] [place] [address] Robert Hathaway DO [address] [facility] [place] [address] documented as of this encounter Visit Diagnoses Diagnosis Anxiety state Anxiety state, unspecified documented in this encounter Additional Health Concerns Assessment Noted Time PHQ-9 Depression Total Score: 7 12/18/19 24 2:52 PM EDT A Body Mass Index follow-up plan has been documented for the patient 07/10/2023 3:34 PM EST documented as of this encounter Care Teams Quality Auditor Relationship Specialty Start Date End Date Robert Hathaway DO [address] [place] [address] PCP - General Family Medicine 05/10/22 documented as of this encounter
--- OUTSIDE RECORDS SUMMARY | 2025-05-03 14:30 | XMS_ITS | Encounter Summary ---
Author Organization [facility] Sys tem Address [facility] [id number] [address] [place] [address] Care Team Providers Care Quality Lab Technician Name Role Phone Robert Hathaway DO Primary Care Provider [phone] Encounter Details Date Type Department Care Team (Late st Contact Info) Description 01/16/2024 Orders Only [facility] - Family Medicine [address] [place] [address] Robert Hathaway DO [address] [facility] [place] [address] Social History Tobacco Use Types Packs/Day Years Used Date Smoking Tobacco: Every Day Cigarettes 0.8 35 Started: 04/15/1988; Last attempted to quit: 04/15/2023 Smokeless Tobacco: Never Comments:Smoke 1 PPD x 10 ye ars Alcohol Use Standard Drinks/Week Comments Not Currently 0 (1 standard drink = 0.6 oz pur e alcohol) [facility] Utilities Answer Date Recorded In the past 12 months has [employer], gas, oil, or water company threatened [...] often do you attend chur ch or faith services? Never 01/24/2023 Do you belong to [...] Answer Date Recorded Total Score 7 12/18/2023 [facility] of Occupat ional Health - Occupational Stress [...] Recorded Do you need help finding a [facility] career center and/or a training [...] - Family Medicine [address] [place] [address] Robert Hathaway DO [address] [facility] [place] [address] documented as of this encounter Visit Diagnoses Not on filedocumented in this encounter Additional Health Concerns Assessment Noted Time PHQ-9 Depression Total Score: 7 12/18/19 24 2:52 PM EDT A Body Mass Index follow-up plan has been documented for the patient 07/10/2023 3:34 PM EST documented as of this encounter Care Teams Quality Lab Technician Relationship Specialty Start Date End Date Robert Hathaway DO [address] [facility] [place] [address] PCP - General Family Medicine 05/10/22 documented as of this encounter
--- OUTSIDE RECORDS SUMMARY | 2025-05-03 14:30 | XMS_ITS | Encounter Summary ---
Author Organization [facility] Address [facility] [id number] [address] [place] [address] Care Team Providers Care Information Systems Director Name Role Phone NellaRobert vila Primary Care Provider [phone] Encounter Details Date Type Department Care Team (Late st Contact Info) Description 12/19/2023 Telephone [facility] - Family Medicine [address] [place] [address] Ramona Silva CMA Social History Tobacco Use Types Packs/Day Years Used Date Smoking Tobacco: Every Day Cigarettes 0.8 35 Started: 04/15/1988; Last attempted to quit: 04/15/2023 Smokeless Tobacco: Never Comments:Smoke 1 PPD x 10 ye ars Alcohol Use Standard Drinks/Week Comments Not Currently 0 (1 standard drink = 0.6 oz pur e alcohol) [facility] Utilities Answer Date Recorded In the past 12 months has [employer], [employer], oil, or water [employer] threatened to shut off services in your [...] How often do you attend chur or bahai services? Never 01/24/2023 Do you belong to any clubs o r organizations such as hoahaoism groups, unions, fraternal or athletic groups, or [...] Answer Date Recorded Total Score 7 12/18/2023 [facility] of Occupat ional Health [...] Telephone Encounter - Ramona Silva CMA - 12/19/2023 9:51 AM EDT Pt called and wanted to let you know that she is not on BENZTROPINE. Has not been taking it for a couple months. Would you please send her in some pain medication. Pharmacy is listed and correct. Pt states Tramdol at least Thank you. * Telephone Encounter - YI Lozada - 12/19/2023 9:51 AM EDT I told her I was not comfortable with this yesterday. She was dismissed from [facility] whom she had apain contract with because 'she asked for pain medication'. She was dismissed from [facility] - she gave me no reason - just they will not see her. She states PT worsens her pain. All muscle relaxants made her either suicidal or throw up. Lyrica and Neurontin made her suicidal. States she cannot take NSAIDs or tylenol due to stomach pain and fatty liver. Alternatives Elavil and cymbalta are on her allergy list. I gave her number to [facility] to get topical compounded pain relief. She also sees neuro- Dr. Casanova. I sent her to neurosurgery and also referred her to PM at [facility]. I am out of ideas to help with her pain. * Telephone Encounter - Robert Hathaway DO - 12/19/2023 9:51 AM EDT She told me her pain was all over due to her fibromyalgia. Her x-rays of her neck showed some degenerative disc disease and arthritis but nothing significant. Not enough to warrant opioid therapy. Her lumbar x-ray was even less significant for the same. Opioids are not appropriate for fibromyalgia.I would be okay with trying Lyrica on her. Even though it is a controlled substance, it isn't an opioid. * Telephone Encounter - YI Lozada - 12/19/2023 9:[address] Hathaway she said Lyrica made her suicidal. She has already tried this in the past. * Telephone Encounter - Robert Hathaway DO - 12/19/2023 9:51 AM EDT She is on a high dose atorvastatin. She would heart catheterization a few years ago which was normal. Maybe do a trial off of it for several months to see if improves her pain * Telephone Encounter - YI Lozada - 12/19/2023 9:51 AM EDT This is the pt - candidate for Vivitrol documented in this encounter Plan of Treatment Upcoming Encounters Date Type Department Care Team (Late st Contact Info) Description 06/17/2025 1:30 PM EDT Office Visit [facility] - Family Medicine [address] [place] [address] Robert Hathaway DO [address], [facility] [address] documented as of this encounter Visit Diagnoses Not on filedocumented in this encounter Additional Health Concerns Assessment Noted Time PHQ-9 Depression Total Score: 7 12/18/19 24 2:52 PM EDT A Body Mass Index follow-up plan has been documented for the patient 07/10/2023 3:34 PM EST documented as of this encounter Care Teams Information Systems Director Relationship Specialty Start Date End Date Robert Hathaway DO [address], [facility] [place] [address] PCP - General Family Medicine 05/10/22 documented as of this encounter
--- OUTSIDE RECORDS SUMMARY | 2025-05-03 14:30 | XMS_ITS | Encounter Summary ---
Author Organization [facility] Address [facility] [id number] [address] [place] [address] Care Team Providers Care Oracle Reports Developer Name Role Phone NellaRobert vila Pamela BYRNES Primary Care Provider [phone] Encounter Details Date Type Department Care Team (Late st Contact Info) Description 01/22/2024 Telephone [facility] Internal [facility] - Family Medicine [address] [place] [address] Iram, Cynthia, CARGO MATE Social History Tobacco Use Types Packs/Day Years Used Date Smoking Tobacco: Every Day Cigarettes 0.8 35 Started: 04/15/1988; Last attempted to quit: 04/15/2023 Smokeless Tobacco: Never Comments:Smoke 1 PPD x 10 ye ars Alcohol Use Standard Drinks/Week Comments Not Currently 0 (1 standard drink = 0.6 oz pur e alcohol) [facility] Utilities Answer Date Recorded In the past 12 months has [employer], [employer], oil, or water [employer] threatened to shut off services in your [...] How often do you attend chur or restoration services? Never 01/24/2023 Do you belong to [...] Answer Date Recorded Total Score 7 12/18/2023 [facility] of Occupat ional Health - [...] Recorded Do you need help finding a [facility] career center and/or a training program? [...] Telephone Encounter - Cynthia Walden CMA - 01/22/2024 10:09 AM EDT Pt called requesting a 1 time pill for her anxiety for tomorrow for the mri machine ? documented in this encounter Plan of Treatment Upcoming Encounters Date Type Department Care Team (Late st Contact Info) Description 06/17/2025 1:30 PM EDT Office Visit [facility] - Family Medicine [address] [place] [address] Robert Hathaway DO [address], [facility] [address] documented as of this encounter Visit Diagnoses Not on filedocumented in this encounter Additional Health Concerns Assessment Noted Time PHQ-9 Depression Total Score: 7 12/18/19 24 2:52 PM EDT A Body Mass Index follow-up plan has been documented for the patient 07/10/2023 3:34 PM EST documented as of this encounter Care Teams Oracle Reports Developer Relationship Specialty Start Date End Date Robert Hathaway DO [address], [facility] [place] [address] PCP - General Family Medicine 05/10/22 documented as of this encounter
--- OUTSIDE RECORDS SUMMARY | 2025-05-03 14:30 | XMS_ITS | Clinical Summary ---
Author Organization [facility] Address [address] [place] [address] Care Team Providers Care Manager Medicare Name Role Phone Robert Hathaway DO Primary Care Provider [phone] Allergies Active Allergy Reactions Criticality Noted Date Comments Adhesive Rash Low 11/02/2011 Adhesive Tape-Silicones Other,Rash Low 08/06/2014 rash Aloe Other 08/28/2023 Facial numbness/tongue numbness/ denied Amitriptyline Nausea And Vomiting,Other Medium 10/08/2012 Other Reaction(s): Abnormal Behavior, Mental Status Change, other, Vomiting hallucinate hallucinate Atomoxetine GI intolerance,Other,Pa lpitations Medium 05/01/2011 Other Reaction(s): GI Disturbance, Other: See Comments palpitations Other Reaction(s): Other (See Comments), Unknown (atomoxetine) palpitations (atomoxetine) Bupropion GI intolerance,Other,Pa lpitations Medium 05/01/2011 Other Reaction(s): GI Disturbance, other, Other: See Comments palpitations palpitations Codeine Hives,Other,Rash High 05/01/2011 Other Reaction(s): Other, Unknown Dexamethasone (Pf) Other 07/30/2019 Don't remember Divalproex Other High 07/30/2019 Hair fall off Doxycycline GI intolerance,Other,Pa lpitations Medium 05/01/2011 Other Reaction(s): GI Disturbance, Other, Other: See Comments, Unknown palpitations palpitations Duloxetine Hives,Unknown 07/30/2019 Doesn't remember Eicosapentaenoic Acid Other 03/13/2017 Fish Containing Products Hives,Rash High 11/02/2011 Fluticasone Propion-Salmeterol Itching,Palpitations ,Rash,Unknown Low 10/08/2012 Other Reaction(s): Unknown Gabapentin Other,Unknown Medium 07/30/2019 Other Reaction(s): Unknown Ibuprofen Other,Nausea And Vomiting,Rash Low 11/02/2011 Other Reaction(s): GI Disturbance, Unknown Iodinated Contrast Media Anaphylaxis High 07/07/2024 Patient started to have SOB and felt faint Ketorolac Hives,Other,Unknown High 06/28/2011 Severe stomach cramping Other Reaction(s): Other: See Comments Other reaction(s): Other: See Comments Abdominal pain Abdominal pain Abdominal pain Other reaction(s): Other: See Comments Abdominal pain Meloxicam Nausea And Vomiting,Unknown Medium 07/30/2019 Other Reaction(s): Unknown Methadone GI intolerance,Nausea And Vomiting,Other Low 05/01/2011 Other Reaction(s): GI Disturbance, other, Vomiting, Vomiting Other reaction(s): Vomiting Other reaction(s): Vomiting Methocarbamol Other,Unknown 11/12/2022 Other Reaction(s): Other (See Comments), Unknown Milnacipran Hives,Other,Unknown 05/25/2022 Moxifloxacin-Sod.Chloride (Iso) Unknown 02/28/2015 Nitrofurantoin Monohyd/M-Cryst Other,Rash Low 05/25/2022 Other Hives High 08/06/2014 Other Reaction(s): other Oxcarbazepine GI intolerance,Hives,Ot her,Palpitations,Unk nown Medium 05/01/2011 palpitations Paroxetine Hives,Other,Unknown High 02/07/2023 Penicillins GI intolerance,Hives,Na usea And Vomiting,Other,Unkno wn Low 05/01/2011 Other Reaction(s): GI Disturbance, Other (See Comments), Unknown, Vomiting, Vomiting, Vomiting Other Reaction(s): other Other Reaction(s): GI Disturbance, Unknown, Vomiting Pregabalin Hallucinations,Other ,Palpitations,Unknow n Low 10/08/2012 Other Reaction(s): Mental Status Change, other, Unknown hallucinate hallucinate Ropinirole Other Medium 07/30/2019 Other Reaction(s): Altered mental status Shellfish Containing Products Rash Low 07/30/2019 Sodium Chloride-Aloe Vera Other 08/28/2023 Facial numbness/tongue numbness Sulfamethoxazole-Trimetho prim Hives,Nausea And Vomiting High 07/30/2019 Other Reaction(s): Vomiting Topiramate GI intolerance,Nausea And Vomiting,Other,Unkno wn Low 05/19/2012 Verapamil GI intolerance,Nausea And Vomiting,Other,Palpi tations Low 10/08/2012 Ziprasidone Hives,Other,Palpitat ions,Unknown Medium 05/01/2011 palpitations Other Reaction(s): other, Unknown Medications furosemide (LASIX ORAL) Take 20 mg by mouth in the morning. 1 Active metFORMIN (Glucophage) 500 mg tablet Take 500 mg by mouth with breakfast. Active cetirizine (ZyrTEC) 10 mg tablet Take 1 tablet by mouth in the morning. Active montelukast (Singulair) 10 mg tablet Take 10 mg by mouth in the evening. Active omeprazole (PriLOSEC) [address] capsule Take 40 mg by mouth at bedtime. Active orphenadrine (Norflex) 100 mg 12 hr tablet Take 100 mg by mouth at bedtime. Active solifenacin (VESIcare) 10 mg tablet Take 10 mg by mouth in the morning. Active alendronate (Fosamax) 70 mg tablet Take 70 mg by mouth every 7 (seven) days. Active ARIPiprazole (Abilify) 15 mg tablet Take 15 mg by mouth in the morning. Active atorvastatin (Lipitor) 80 mg tablet Take 1 tablet by mouth in the morning. 3 Active carvedilol (Coreg) 25 mg tablet Take 1 tablet by mouth in the morning and at bedtime. Active dilTIAZem CD (Cardizem CD) 120 mg 24 hr capsule Take 120 mg by mouth in the morning. Active ALPRAZolam (Xanax) 1 mg tablet Take 1 tablet by mouth if needed in the morning, at noon, and at bedtime. 4 Active meclizine (Antivert) 25 mg tablet Take 25 mg by mouth if needed in the morning, at noon, and at bedtime. 2 Active loperamide (Imodium A-D) 2 mg tablet Take 2 mg by mouth every 12 (twelve) hours if needed. Active albuterol 90 mcg/actuation inhaler Inhale 2 puffs every 6 (six) hours if needed for wheezing. Active naloxone (Narcan) 4 mg/0.1 mL nasal sprayIndication s:Post-op pain Administer 1 spray (4 mg) into affected nostril(s) if needed for opioid reversal. May repeat every 2-3 minutes if needed, alternating nostrils, until medical assistance becomes available. 2 each 5 11/04/19 26 Active Active Problems Problem Noted Date Diagnosed Date CELINE (obstructive sleep apnea) 08/03/2024 Left arm pain 06/16/2024 Encounters Date Type Department Care Team Description 05/03/2025 Telephone [facility] [address] [place] [address] Case, JAGRUTI Flores from Last 3 Months Social History Tobacco Use Types Packs/Day Years Used Date Smoking Tobacco: Every Day Cigarettes Smokeless Tobacco: Never Tobacco Cessation:Ready to Q uit: Not Asked; [...] Don't know 06/16/2024 3: 16 PM EDT Last Filed Vital Signs Vital Sign Reading Time Taken Comments Blood Pressure 144/65 08/03/2024 1:45 PM EST Pulse 67 08/03/2024 1:45 PM EST Temperature 36.2 C (97.2 F) 08/03/2024 1:45 PM EST Respiratory Rate 18 08/03/2024 1:45 PM EST Oxygen Saturation 100% 08/03/2024 1:45 PM EST Inhaled Oxygen Concentration - - Weight 73.5 kg (162 lb) 11/03/2024 1:37 PM EDT Height 162.6 cm (5' 4 ) 09/28/2024 3:14 PM EST Body Mass Index 27.81 09/28/2024 3:14 PM EST Plan of Treatment Upcoming Encounters Date Type Department Care Team (Late st Contact Info) Description 06/09/2025 1:45 PM EDT Follow-Up [facility] [address] [place] [address] [place] [phone] Emiliana Abad MD [address] [place] [address] [place] [address] Health Maintenance Due Date Last Done Comments CT Colonography 1970 Diabetes: Hemoglobin A1C 1970 FIT-DNA 1970 FIT 1970 FOBT 1970 Sigmoidoscopy 1970 Diabetes: Retinopathy Screening 1980 Hepatitis B Vaccines (1 of 3 - 19+ 3-dose series) 1989 Adult Tetanus 1992 HPV/Cotest 2000 Mammogram 2010 COVID-19 Vaccine ( - 2023-2 5 season) 2025 05/12/2024, 06/24/2023 Influenza Vaccine (#1) 2025 , 06/24/2023, 04/15/2020 Depression Screening 11/03/2025 11/03/2024 Diabetes: Urine Protein Screening 12/15/2025 12/15/2024, 10/22/2022 Cervical Cancer Screening 07/29/2027 Pap Smear 07/29/2027 07/29/2024 Colonoscopy 01/17/2033 01/17/2023, 03/14/2020 Colorectal Cancer Screening 01/17/2033 Pneumococcal Vaccine: Pediatrics (0 to 5 Years) and At-Risk Patients (6 to 64 Years) Completed 05/12/2024 Zoster Vaccines Completed 05/12/2024, 03/09/2024 HIB Vaccines Aged Out No longer eligi ble based on patient's age to complete this topic HPV Vaccines Aged Out No longer eligi ble based on patient's age to complete this topic IPV Vaccines Aged Out No longer eligi ble based on patient's age to complete this topic Meningococcal B Vaccine Aged Out No l onger eligible based on patient's age to complete this topic Meningococcal Vaccine Aged Out No mathew ben eligible based on patient's age to complete this topic Rotavirus Vaccines Aged Out No longer eligible based on patient's age to complete this topic Insurance [employer] [place] [employer] Care Teams Manager Medicare Relationship Specialty Start Date End Date Robert Hathaway DO [address], [place] [address] PCP - General Family Medicine 06/16/24
--- OUTSIDE RECORDS SUMMARY | 2025-05-03 14:30 | XMS_ITS | Encounter Summary ---
Author Organization [facility] Address [address] [place] [address] Care Team Providers Care Jawbone Puller Name Role Phone Robert Hathaway MD Primary Care Provider + [phone] Robert Hathaway MD Primary Care Provider + [phone] Encounter Details Date Type Department Care Team (Late Contact Info) Description 08/30/2023 Abstract [facility] [address], [place] [id number] Carlos Sanchez MD [address] [place] [id number] Social History Tobacco Use Types Packs/Day Years [...] Office Visit [facility] [address] [place] [address] Carlos Sanchez MD 8767 [facility] [address] [address] documented as of this encounter Visit Diagnoses Not on filedocumented in this encounter Care Teams Jawbone Puller Relationship Specialty Start Date End Date Robert Hathaway MD PCP - General Family Medicine 07/24/23 11/18/24 Robert Hathaway MD [address] [facility] [place] [address] PCP - General Family Medicine 11/19/24 documented as of this encounter
--- OUTSIDE RECORDS SUMMARY | 2025-05-03 14:30 | XMS_ITS | Encounter Summary ---
Author Organization [facility] Sys tem Address [id number] [address] [place] [address] Care Team Providers Care Camp Dishwasher Name Role Phone Robert Hathaway DO Primary Care Provider [phone] Encounter Details Date Type Department Care Team (Late st Contact Info) Description 12/03/2023 Orders Only [facility] - Family Medicine [address] [place] [address] Robert Hathaway DO [address] [facility] [place] [address] Social History Tobacco Use Types Packs/Day Years Used Date Smoking Tobacco: Former Cigarettes 0.8 35 0 04/15/1988 - 04/15/2023 Smokeless Tobacco: Never Comments:Smoke 1 PPD x 10 ye ars Alcohol Use Standard Drinks/Week Comments Not Currently 0 (1 standard drink = 0.6 oz pur e alcohol) [facility] Utilities Answer Date Recorded In the past 12 months has [employer] electric, gas, oil, or water company threatened [...] often do you attend chur ch or restorationism services? Never 01/24/2023 Do you belong to any clubs o r organizations such as hinduism groups, unions, fraternal or athletic groups, or [...] Answer Date Recorded Total Score 0 10/03/2023 [facility] - [...] - Family Medicine [address] [place] [address] Robert Hathaway, DO [address], [place] [address] documented as of this encounter Procedures Procedure Name Priority Date/Time Associated Diagnosis Comments CT ABDOMEN AND PELVIS W CONT Routine 12/01/2023 2:57 PM EDT ECG 12-LEAD Routine 12/01/2023 12:56 PM EDT documented in this encounter Results * CT abdomen and pelvis with contrast (12/01/2023 2:57 PM EDT) Anatomical Region Laterality Modality Body, Abdomen, Body Covera N/A Compu emeterio Tomography us Scanning Provider External IMG CT ORDERABLES Fin al Result * ECG 12 lead (12/01/2023 12:56 PM EDT) us Scanning Provider External ECG ORDERABLES Final Result MANUALLY TRANSCRIBED RESULTS documented in this encounter Visit Diagnoses Not on filedocumented in this encounter Additional Health Concerns Assessment Noted Time PHQ-9 Depression Total Score: 0 10/03/19 4:13 PM EST A Body Mass Index follow-up plan has been documented for the patient 07/10/2023 3:34 PM EST documented as of this encounter Care Teams Camp Dishwasher Relationship Specialty Start Date End Date Robert Hathaway DO [address] [facility] [place] [address] PCP - General Family Medicine 05/10/22 documented as of this encounter
--- OUTSIDE RECORDS SUMMARY | 2025-05-03 14:30 | XMS_ITS | Encounter Summary ---
Author Organization [facility] Address [id number] [address] [place] [address] Care Team Providers Care Compliance Engineer Products Name Role Phone Robert Hathaway DO Primary Care Provider [phone] Encounter Details Date Type Department Care Team (Late st Contact Info) Description 12/05/2023 Orders Only [facility] - Family Medicine [address] [place] [address] Robert Hathaway DO [address] [facility] [place] [address] Chronic bilateral low back pain with sciatica, sciatica laterality unspecified (Primary Dx) Social History Tobacco Use Types Packs/Day Years Used Date Smoking Tobacco: Former Cigarettes 0.8 35 0 04/15/1988 - 04/15/2023 Smokeless Tobacco: Never Comments:Smoke 1 PPD x 10 ye ars Alcohol Use Standard Drinks/Week Comments Not Currently 0 (1 standard drink = 0.6 oz pur e alcohol) [facility] Utilities Answer Date Recorded In the past 12 months has [employer] electric, gas, oil, or water company threatened [...] Medicine - Family Medicine [address] [place] [address] Robert Hathaway DO [address] [place] [address] documented as of this encounter Visit Diagnoses Diagnosis Chronic bilateral low back pain with sciatica, sciatica laterality unspecified- Primary documented in this encounter Additional Health Concerns Assessment Noted Time PHQ-9 Depression Total Score: 0 10/03/19 24 4:13 PM EST A Body Mass Index follow-up plan has been documented for the patient 07/10/2023 3:34 PM EST documented as of this encounter Care Teams Compliance Engineer Products Relationship Specialty Start Date End Date Robert Hathaway DO [address] [place] [address] PCP - General Family Medicine 05/10/22 documented as of this encounter
--- OUTSIDE RECORDS SUMMARY | 2025-05-03 14:30 | XMS_ITS | Encounter Summary ---
[facility] Address [id number] [address] [place] [address] Care Team Providers Care Shell Mold Bonder Name Role Phone Robert Hathaway DO Primary Care Provider + [phone] Reason for Visit * Reason Comments Med Refill Encounter Details Date Type Department Care Team (Late st Contact Info) Description 10/28/2023 Refill [facility] - Family Medicine [address] [place] [address] Robert Hathaway DO [address] [facility] [place] [address] Type 2 diabetes mellitus with diabetic mononeuropathy, without long-term current use of insulin ([facility]); Type 2 diabetes mellitus without complication, without long-term current use of insulin ([facility]); Anxiety state Social History Tobacco Use Types Packs/Day Years Used Date Smoking Tobacco: Former Cigarettes 0.8 35 0 04/15/1988 - 04/15/2023 Smokeless Tobacco: Never Comments:Smoke 1 PPD x 10 ye ars Alcohol Use Standard Drinks/Week Comments Not Currently 0 (1 standard drink = 0.6 oz pur e alcohol) [facility] Utilities Answer Date Recorded In the past 12 months has e electric, gas, oil, or water company [...] often do you attend chur ch or tenriism services? Never 01/24/2023 Do you belong to any clubs o r organizations such as cheondoism groups, unions, fraternal or athletic groups, or [...] Answer Date Recorded Total Score 0 10/03/2023 [facility] [...] Recorded Do you need help finding a [facility] career center and/or a training [...] - Family Medicine [address] [place] [address] Robert Hathaway DO [address], [facility] [place] [address] documented as of this encounter Visit Diagnoses Diagnosis Type 2 diabetes mellitus with diabetic mononeuropathy, without long-term current use of insulin ([facility]) Type 2 diabetes mellitus without complication, without long-term current use of insulin ([facility]) Anxiety state Anxiety state, unspecified documented in this encounter Additional Health Concerns Assessment Noted Time PHQ-9 Depression Total Score: 0 10/03/19 24 4:13 PM EST A Body Mass Index follow-up plan has been documented for the patient 07/10/2023 3:34 PM EST documented as of this encounter Care Teams Shell Mold Bonder Relationship Specialty Start Date End Date Robert Hathaway DO [address] [place] [address] PCP - General Family Medicine 05/10/22 documented as of this encounter
--- OUTSIDE RECORDS SUMMARY | 2025-05-03 14:30 | XMS_ITS | Encounter Summary ---
Author Organization [facility] Address [address] [place] [address] Care Team Providers Care Volleyball Assistant Coach Name Role Phone Robert Hathaway MD Primary Care Provider + [phone] Robert Hathaway MD Primary Care Provider + [phone] Encounter Details Date Type Department Care Team (Late Contact Info) Description 09/27/2023 Clinisync Result Encounter [facility] External Department Unsolicited David Villalobos, DO [address] [facility] [address] [place] [id number] Social History Tobacco Use Types Packs/Day Years [...] Office Visit [facility] [address] [place] [address] Carlos Sanchez MD [address] [facility] [address] [place] [address] documented as of this encounter Procedures Procedure Name Priority Date/Time Associated Diagnosis Comments MM TOMOSYNTHESIS SCREENING BI 09/27/2023 2:16 PM EST documented in this encounter Results * MM TOMOSYNTHESIS SCREENING BI (09/27/2023 2:16 PM EST) Anatomical Region Laterality Modality Other 09/27/2023 2:16 PM EST Narrative 09/27/2023 2:17 PM EST The [address] [address] Mammography Report Signed Patient: ROCK MEZA MR#: [id number] : 1970 Acct:[id number] Age/Sex: 53 / F ADM Date: 09/27/23 Loc: MAMMO Attending Dr: David Villalobos D.O. Ordering Physician: David Villalobos D.O. Results: Date of Service: 09/27/23 Follow Up: Procedure(s): MM tomosynthesis screening BI Accession Number(s): [id number] cc: ROBERT HATHAWAY Corey D.O. Patient Name: ROCK MEZA MR#: [id number] : 1970 Exam Date: 09/27/2023 Ordering Doctor: DR David Villalobos . RADIOLOGY REPORT PROCEDURE: MM TOMOSYNTHESIS SCREENING BI COMPARISON: MG MAMM SCREEN 3D TAJ CAD, 10/23/2021. MG MAMM DIAGNOSTIC 3D TAJ CAD, 09/10/2022. INDICATIONS: Screening Calculator Name NCI Breast Cancer Risk Assessment Tool 5 Year Breast Cancer Risk 1.20% Lifetime Breast Cancer Risk 9.20% Personal Breast Cancer No Personal Ovarian Cancer No Treatments None Family Cancers Mother with ovarian cancer at age 60. LOCATION: [facility] BREAST COMPOSITION: Heterogeneously dense,which may obscure small masses. FINDINGS: DIAGNOSTIC CATEGORY 2--BENIGN FINDING. NO CHANGE FROM COMPARISON. Scattered benign-appearing calcifications are present. RIGHT BREAST: No significant suspicious finding. LEFT BREAST: No significant suspicious finding. Stable cluster of microcalcifications lower inner quadrant, anterior to mid breast RECOMMENDATIONS: ROUTINE MAMMOGRAM AND CLINICAL EVALUATION IN 12 MONTHS. PLEASE NOTE: A NORMAL MAMMOGRAM DOES NOT EXCLUDE THE POSSIBILITY OF BREAST CANCER. A CLINICALLY SUSPICIOUS PALPABLE LUMP SHOULD BE BIOPSIED. Dictated by: Donny Coombs MD on 09/27/2023 at 14:15 Approved by: Donny Coombs MD on 09/27/2023 at 14:16 Dictated By: Donny Coombs M.D. Signed By: 09/27/23 1417 DD/ 1416 TD/TT: Hat And Cap Opener: Procedure Note Radiology, Radiologist, MD - 09/27/2023 [place] [address] Mammography Report Signed Patient: ROCK MEZA JMR#: [id number] : 1970Acct:[id number] Age/Sex: 53 / FADM Date: 09/27/23 Loc: MAMMO Attending Dr: David Villalobos D.O. Ordering Physician: David Villalobos D.O.Results: Date of Service: 09/27/23Follow Up: Procedure(s): MM tomosynthesis screening BI Accession Number(s): [id number] cc: ROBRET HATHAWAY Corey D.O. Patient Name: ROCK MEZA MR#: [id number] : 1970 Exam Date: 09/27/2023 Ordering Doctor: DR David Villalobos . RADIOLOGY REPORT PROCEDURE: MM TOMOSYNTHESIS SCREENING BI COMPARISON: MG MAMM SCREEN 3D TAJ CAD, 10/23/2021. MG MAMM [id number] TAJ CAD, 09/10/2022. INDICATIONS: Screening Calculator Name NCI Breast Cancer Risk Assessment Tool 5 Year Breast Cancer Risk 1.20% Lifetime Breast Cancer Risk 9.20% Personal Breast Cancer No Personal Ovarian Cancer No Treatments None Family Cancers Mother with ovarian cancer at age 60. LOCATION: [facility] BREAST COMPOSITION: Heterogeneously dense,which may obscure smallmasses. FINDINGS: DIAGNOSTIC CATEGORY 2--BENIGN FINDING. NO CHANGE FROM COMPARISON.Scattered benign-appearing calcifications are present. RIGHT BREAST: No significant suspicious finding. LEFT BREAST: No significant suspicious finding. Stable cluster of microcalcifications lower inner quadrant, anterior to mid breast RECOMMENDATIONS: ROUTINE MAMMOGRAM AND CLINICAL EVALUATION IN 12 MONTHS. PLEASE NOTE: A NORMAL MAMMOGRAM DOES NOT EXCLUDE THE POSSIBILITY OFBREAST CANCER. A CLINICALLY SUSPICIOUS PALPABLE LUMP SHOULD BE BIOPSIED. Dictated by: Donny Coombs MD on 09/27/2023 at 14:15 Approved by: Donny Coombs MD on 09/27/2023 at 14:16 Dictated By: Donny Coombs M.D. Signed By:09/27/23 1417 DD/ 1416 TD/TT: Hat And Cap Opener: us David Wilfredo DO [facility] Final Result documented in this encounter Visit Diagnoses Not on filedocumented in this encounter Care Teams Volleyball Assistant Coach Relationship Specialty Start Date End Date Robert Hathaway MD PCP - General Family Medicine 07/24/23 11/18/24 Robert Hathaway MD [address] [facility] [address] PCP - General Family Medicine 11/19/24 documented as of this encounter
--- NOTE | 2025-05-03 15:04 | ED_ITS ---
HPI - Extremity Problem General Chief complaint: Extremity Problem, Nontraumatic Stated complaint: R SHOULDER PAIN Time Seen by Provider: 05/03/25 14:30 Source: patient Mode of arrival: walk-in History of Present Illness HPI Narrative: 54-year-old female with a history of chronic pain presents to the ED for right shoulder pain of a few weeks? duration. Nothing that makes it better or worse. She reports no recent trauma or reinjury. She has a remote history of a right shoulder fracture in four places several years ago. She has never seen orthopedics or had physical therapy. She has been taking tramadol at home with minimal relief. Denies numbness, tingling, or weakness in the right upper extremity. No neck pain, chest pain, shortness of breath, lightheadedness, fever, or chills. MD Complaint: Reports extremity pain Related Data Home Medications ?Medication ?Instructions ?Recorded ?Confirmed alendronate 70 mg tablet 70 mg PO QWEEK 11/05/2301/18 alprazolam 1 mg tablet 1 mg PO TID PRN anxiety 10/1702/09/25 aripiprazole 15 mg tablet 15 mg PO DAILY 11/05/2301/18 atorvastatin 80 mg tablet 80 mg PO DAILY 11/05/2301/18 calcium carbonate 600 mg PO BID 11/05/2302/09 carvedilol 25 mg tablet 25 mg PO BID 11/05/23 cetirizine 10 mg tablet 10 mg PO DAILY 11/05/2301/18 albuterol sulfate 90 mcg/actuation inhalation 02/09/25 aerosol inhaler blood sugar diagnostic (OneTouch 02/09/25 02/09/25 Ultra Test strips) diltiazem HCl 120 mg mg PO 02/09/25 capsule,extended release 24 hr ergocalciferol (vitamin D2) 1,250 02/09/25 mcg (50,000 unit) capsule furosemide 20 mg tablet mg 02/09/25 lidocaine 5 % topical ointment 02/09/25 loperamide 2 mg capsule mg 02/09/25 metformin 500 mg tablet mg 02/09/25 mirabegron 50 mg tablet,extended mg PO 02/09/25 release 24 hr (Myrbetriq) montelukast 10 mg tablet mg 02/09/25 nabumetone 500 mg tablet mg 02/09/25 omeprazole 40 mg capsule,delayed mg 02/09/25 release ondansetron 4 mg disintegrating mg 02/09/25 tablet oxycodone-acetaminophen 10 mg-325 tab 02/09/25 mg tablet solifenacin 10 mg tablet mg PO 02/09/25 thiamine mononitrate (vit B1) 100 mg 02/09/25 mg tablet (Vitamin B-1 (mononitrate)) Previous Rx's ?Medication ?Instructions ?Recorded ondansetron 4 mg disintegrating 4 mg PO Q6H PRN nausea and 02/10/25 tablet vomiting #10 tabs tramadol 50 mg tablet 50 mg PO Q12H PRN pain 3 day s #6 03/09/25 tabs orphenadrine citrate 100 mg 100 mg PO Q12H PRN pain #1 4 tabs 05/03/25 tablet,extended release Allergies Allergy/AdvReac Type Severity Reaction Status Date / Time Iodinated Contrast Media Allergy Severe shortness Verified 02/09/25 20:17 of breath adhesive tape Allergy Blister Verified 02/09/25 20:17 amitriptyline Allergy Hives Verified 02/09/25 20:17 amoxicillin Allergy Anaphylaxis Verified 02/09/25 20:17 atomoxetine (From Strattera) Allergy Agitated Verified 02/09/25 20:17 bupropion (From Wellbutrin) Allergy Hives Verified 02/09/25 20:17 codeine Allergy Hives Verified 02/09/25 20:17 dexamethasone Allergy Hives Verified 02/09/25 20:17 divalproex sodium (From Allergy Hives Verified 02/09/25 20:17 Depakote) duloxetine (From Cymbalta) Allergy Hives Verified 02/09/25 20:17 fluticasone (From Advair Allergy Anaphylaxis Verified 02/09/25 20:17 Diskus) gabapentin Allergy Anaphylaxis Verified 02/09/25 20:17 ibuprofen Allergy Anaphylaxis Verified 02/09/25 20:17 ketorolac (From Toradol) Allergy Anaphylaxis Verified 02/09/25 20:17 meloxicam (From Mobic) Allergy Anaphylaxis Verified 02/09/25 20:17 methadone Allergy Anaphylaxis Verified 02/09/25 20:17 milnacipran (From Savella) Allergy Anaphylaxis Verified 02/09/25 20:17 nitrofurantoin (From Allergy Anaphylaxis Verified 02/09/25 20:17 Macrobid) paroxetine (From Paxil) Allergy Confusion Verified 02/09/25 20:17 Penicillins Allergy Altered Verified 02/09/25 20:17 Sense of Taste pregabalin (From Lyrica) Allergy Anxiety Verified 02/09/25 20:17 ropinirole (From Requip) Allergy Hives Verified 02/09/25 20:17 salmeterol (From Advair Allergy Hives Verified 02/09/25 20:17 Diskus) topiramate (From Topamax) Allergy Hives Verified 02/09/25 20:17 ziprasidone Allergy Hives Verified 02/09/25 20:17 acetaminophen (From [place]) AdvReac itch Verified 03/09/25 13:33 hydrocodone (From [place]) AdvReac itch Verified 03/09/25 13:33 fish Allergy Anaphylaxis Uncoded 02/09/25 20:17 PFSH PFSH Social History Smoking status: Never smoker Little interest or pleasure in doing things: not at all Feeling down, depressed, or hopeless: not at all Exam Narrative Exam Narrative: Exam: * General: Alert, oriented, in no acute distress * Musculoskeletal: * Tenderness around the right glenohumeral joint, most notable posteriorly * Pain with external rotation and abduction * Limited range of motion due to discomfort; strength testing not completed * Neurovascular: Good distal pulses, normal capillary refill, intact sensation bilaterally * HEENT/Neck: No cervical tenderness or paraspinal muscle spasm * Cardiac/Lungs: Heart and lung exam unremarkable * Skin/Allergies: Multiple drug allergies (~27), including steroids, NSAIDs, and acetaminophen * * * Constitutional Vital Signs, click to edit/add: Last Vital Signs Temp 98.3 F 05/03/25 14:23 Pulse 68 05/03/25 14:23 Resp 16 05/03/25 14:23 BP 151/86 H 05/03/25 14:23 Pulse Ox 98 05/03/25 14:23 O2 Del Method Room Air 05/03/25 14:23 Course Vital Signs Vital signs: Vital Signs Temperature 98.3 F 05/03/25 14:23 Pulse Rate 68 05/03/25 14:23 Respiratory Rate 16 05/03/25 14:23 Blood Pressure 151/86 H 05/03/25 14:23 Pulse Oximetry 98 05/03/25 14:23 Oxygen Delivery Method Room Air 05/03/25 14:23 Temperature 98.3 F 05/03/25 14:23 Pulse Rate 68 05/03/25 14:23 Respiratory Rate 16 05/03/25 14:23 Blood Pressure 151/86 H 05/03/25 14:23 Pulse Oximetry 98 05/03/25 14:23 Oxygen Delivery Method Room Air 05/03/25 14:23 MDM - Extremity (Nontraumatic) MDM Narrative Medical decision making narrative: 54-year-old female with chronic right shoulder pain likely related to remote multi-fragment fracture and post-traumatic changes. Pain is localized to the glenohumeral joint, worsened with abduction and external rotation, refused to move through complete range of motion she does not haveneurologic deficits. Limited treatment options due to extensive drug allergies. Symptomatic management with muscle relaxant initiated. Patient strongly advised to follow-up with orthopedics for further evaluation and management. Medications: * Muscle relaxant for shoulder spasm/pain Non-pharmacologic: Encourage gentle range of motion as tolerated Follow-Up: Orthopedic evaluation recommended for chronic shoulder pain management Return Precautions: Worsening pain, new numbness or tingling, swelling, redness, or inability to move the shoulder Patient understands and is agreeable to plan of care, discharged in stable condition Discharge Plan Discharge Chief Complaint: Extremity Problem, Nontraumatic Clinical Impression: Chronic right shoulder pain Patient Disposition: Home, Self-Care Time of Disposition Decision: 15:09 Prescriptions / Home Meds: New orphenadrine citrate 100 mg tablet extended release 100 mg PO Q12H PRN (Reason: pain) Qty: 14 0RF No Action metformin 500 mg tablet loperamide 2 mg capsule (DME) OneTouch Ultra Test Strip MISCELLANEOUS omeprazole 40 mg capsule,delayed release(DR/EC) oxycodone-acetaminophen 10-325 mg tablet diltiazem HCl 120 mg capsule,extended release 24hr PO montelukast 10 mg tablet furosemide 20 mg tablet ergocalciferol (vitamin D2) 1,250 mcg (50,000 unit) capsule albuterol sulfate 90 mcg/actuation HFA aerosol inhaler INHALATION ondansetron 4 mg tablet,disintegrating nabumetone 500 mg tablet solifenacin 10 mg tablet PO thiamine mononitrate (vit B1) [Vitamin B-1 (mononitrate)] 100 mg tablet lidocaine 5 % ointment mirabegron [Myrbetriq] 50 mg tablet extended release 24 hr PO ondansetron 4 mg tablet,disintegrating 4 mg PO Q6H PRN (Reason: nausea and vomiting) Qty: 10 0RF tramadol 50 mg tablet 50 mg PO Q12H PRN (Reason: pain) 3 Days Qty: 6 0RF alendronate 70 mg tablet 70 mg PO QWEEK alprazolam 1 mg tablet 1 mg PO TID PRN (Reason: anxiety) aripiprazole 15 mg tablet 15 mg PO DAILY atorvastatin 80 mg tablet 80 mg PO DAILY calcium carbonate 600 mg calcium (1,500 mg) tablet 600 mg PO BID carvedilol 25 mg tablet 25 mg PO BID cetirizine 10 mg tablet 10 mg PO DAILY Print Language: Grenadian Instructions: Pain Management in Older Adults (DC), Shoulder Pain (ED) Additional Instructions: After Visit Summary (AVS) Reason for Visit: * Right shoulder pain What We Found: * Pain likely related to old shoulder fracture and chronic changes * No new injury or nerve damage * Exam showed tenderness and limited movement due to discomfort Medications/Treatments: * Muscle Relaxant: Take as prescribed for shoulder pain and tightness Care at Home: * Avoid heavy lifting or sudden movements of the shoulder * Gentle range of motion exercises as tolerated * Apply ice or heat for comfort if helpful * Monitor for any new swelling, redness, or worsening pain Follow-Up: * Orthopedics: Strongly recommended for ongoing shoulder pain management and further evaluation * Primary care provider follow-up as needed When to Return to the ED: * Sudden severe pain * New numbness, tingling, or weakness in the arm or hand * Swelling, redness, or warmth around the shoulder * Inability to move the shoulder Referrals: IVON GIRON [Primary Care Provider, Family Practice] - 1 week Iftikhar Howe DO [Physician, Orthopedics] - 1 week Referral Note: call for follow up Discharge Date/Time: 05/03/25 15:20
[2025-05-03] MEDS: ORPHENADRINE CITRATE 100 MG TABLET.ER PO (15:09)
--- OUTSIDE RECORDS SUMMARY | 2025-05-03 18:31 | XMS_ITS | CCD ---
Author Organization [facility] Care Team Providers Care Order Detailer Name Role Phone ROBERT GIRON Primary Care Physician [phone] YaelValarie Unavailable YAELVALARIE Attending Unavailable FURLONG, DR [...] FURLONG, DR ROBERT Kimball Primary Care Unavailable RIDGEWAY, DR MAMIE Quintana Consulting Unavailable JAJA, ELIUD Consulting Unavailable MISC, DR MALIN Attending Unavailable MISC, DR MALIN Admitting Unavailable FURLONG, DR ROBERT Kimball Primary Care Unavailable FURLONG, DR ROBERT Kimball Consulting Unavailable RIDGEWAY, DR MAMIE Quintana Consulting Unavailable MISC, DR [...] Unavailable Robert Giron MD Primary Care Provider [phone] DO Robert Giron Primary Care Provider [phone] WILMA Conley Attending Provider [phone] Unavailable Primary Care Provider UnavailRobert Beckford DO Primary Care Provider Robert Giron DO Primary Care Provider [phone] Robert Giron MD Primary Care Provider Robert Giron DO Primary Care Provider [phone] Yael Valarie DILLNO Attending Provider Robert Giron MD Primary Care Provider REYES BORGES Attending Unavailable ROBERT GIRON Referring [...] FURLONG, ROBERT G Primary Care Unavailable KURT CHAMPAN Attending Unavailable KURT CHAPMAN Referring Unavailable FURLONG, [...] SANCHEZ Attending Unavailable GRICELDA HAMMOND Attending Unavailable SHENANEANAHIHAL Referring Unavailable SHMUEL LEVINE Attending Unavailable SHENDGEANAHIHAL Referring Unavailable FURLONG, ROBERT G Attending Unavailable [...] Unavailable FURLONG, ROBERT G Primary Care Unavailable Furlong DO, Robert Primary Care Provider Yael PERSONAL LINES UNDERWRITER, Valarie Attending Provider [phone] Furlong, Robert Primary Care Unavailable Yael, Valarie Attending Unavailable Yael, Valarie Admitting Unavailable Furlong, Robert Primary Care Unavailable Sofiya Brown Attending Unavailable Sofiya Brown Admitting Unavailable Yael, Valarie Admitting Unavailable Furlong, Robert Primary Care Unavailable Yael, Valarie Attending Unavailable JIM LERMA Attending Unavailable FURLONG, ROBERT G Primary Care Unavailable JIM LERMA Admitting Unavailable JIM LERMA Attending Unavailable FURLONG, ROBERT G Primary Care Unavailable STEPANIC, JIM C Admitting Unavailable Donaldo PEARSON Attending Unavailable Sofiya Villa Attending Unavailable NONE, XXXX Referring Unavailable MYRNA Carmen Attending Unavailable Allergies Allergy Classification Reported Allergen(s) Allergy Type Date of Onset Reaction(s) Facility (20 sources) Acetaminophen / HYDROcodone; Translations: [acetaminophen-hydr ocodone] Drug Allergy Unknown (qualifier value), rash [facility] (20 sources) Adhesive Tape; Translations: [Tape] Drug allergy Eruption of skin (disorder), rash [facility] (20 sources) Amitriptyline; Translations: [amitriptyline] Drug Allergy 013 Vomiting (disorder), Mental Status Change, Abnormal Behavior [facility] (20 sources) Amoxicillin; Translations: [amoxicillin] Drug Allergy 015 Vomiting [facility] (20 sources) Amoxicillin / Clavulanate; Translations: [amoxicillin-clavul anate] Drug Allergy 017 Vomiting (disorder), GI Disturbance [facility] (20 sources) atomoxetine; Translations: [atomoxetine] Drug Allergy 011 Palpitations [facility] Comment on above: (atomoxetine) (20 sources) buPROPion; Translations: [bupropion] Drug Allergy 011 Palpitations [facility] (20 sources) Codeine; Translations: [codeine] Drug Allergy 011 Eruption of skin (disorder), Hives, Rash [facility] (20 sources) Dexamethasone; Translations: [dexamethasone] Drug Allergy 012 Menopausal flushing (finding), Unknown [facility] Comment on above: (dexamethasone) (20 sources) Doxycycline; Translations: [doxycycline] Drug Allergy 011 Palpitations, Other: See Comments, GI Disturbance [facility] (20 sources) DULoxetine; Translations: [duloxetine] Drug Allergy 019 Unknown (qualifier value), hives [facility] (20 sources) fluticasone; Translations: [fluticasone] Drug Allergy 014 Unknown (qualifier value) [facility] (20 sources) fluticasone / salmeterol; Translations: [fluticasone-salmet su] Drug Allergy 013 Eruption of skin (disorder), rash, Itching, Palpitations, Unknown [facility] (20 sources) gabapentin; Translations: [gabapentin] Drug Allergy 019 Unknown (qualifier value) [facility] (20 sources) Ibuprofen; Translations: [ibuprofen] Drug Allergy Eruption of skin (disorder), rash, Nausea And Vomiting, GI Disturbance [facility] (20 sources) Ketorolac; Translations: [ketorolac] Drug Allergy 011 Unknown (qualifier value), Other: See Comments [facility] (20 sources) meloxicam; Translations: [meloxicam] Drug Allergy 019 Unknown (qualifier value) [facility] (20 sources) Methadone; Translations: [methadone] Drug Allergy Vomiting (disorder), Nausea And Vomiting, Vomiting, GI Disturbance [facility] (20 sources) milnacipran; Translations: [milnacipran] Drug Allergy Unknown (qualifier value), Other (See Comments) [facility] (20 sources) moxifloxacin; Translations: [moxifloxacin] Drug Allergy Eruption of skin (disorder), rash, Nausea Only, Nausea [facility] (20 sources) NITROFURANTOIN, MACROCRYSTALS / Nitrofurantoin, Monohydrate; Translations: [nitrofurantoin] Drug Allergy Other (See Comments) [facility] (20 sources) OXcarbazepine; Translations: [oxcarbazepine] Drug Allergy 011 Unknown (qualifier value), Other: See Comments, GI Disturbance, Palpitations [facility] (20 sources) PARoxetine; Translations: [paroxetine] Drug Allergy 023 Unknown (qualifier value), Hives [facility] (20 sources) Penicillins; Translations: [penicillins] Drug allergy 011 Unknown (qualifier value), Hives, Vomiting, GI Disturbance, Other (See Comments) [facility] (20 sources) pregabalin; Translations: [pregabalin] Drug Allergy Unknown (qualifier value), Mental Status Change, Other (See Comments), Palpitations [facility] (20 sources) rOPINIRole; Translations: [ropinirole] Drug Allergy Altered mental status [facility] (20 sources) Shellfish; Translations: [shellfish] Drug allergy Eruption of skin (disorder), rash [facility] (20 sources) Sulfamethoxazole / Trimethoprim; Translations: [sulfamethoxazole-t rimethoprim] Drug Allergy Vomiting (disorder), Hives, Vomiting [facility] (20 sources) topiramate; Translations: [topiramate] Drug Allergy Vomiting (disorder), Unknown, GI Disturbance, Other (See Comments) [facility] (20 sources) Valproate; Translations: [divalproex sodium] Drug Allergy Alopecia (disorder) [facility] (20 sources) Verapamil; Translations: [verapamil] Drug Allergy Vomiting (disorder), GI intolerance, Vomiting, GI Disturbance [facility] (20 sources) ziprasidone; Translations: [ziprasidone] Drug Allergy 011 Unknown (qualifier value), Palpitations, Other (See Comments) [facility] (5 sources) Adhesive Tape; Translations: [Adhesive tape] Allergy to substance contact dermatitis [facility] (20 sources) Fish Containing Products; Translations: [FISH CONTAINING PRODUCTS] Allergy to substance Rash [facility] (6 sources) Codeine Drug Allergy rash [facility] [employer] Other (6 sources) torodol Propensity to adverse reactions severe abdominal pain [facility] [employer] Other (20 sources) Methocarbamol; Translations: [methocarbamol] Drug Allergy 023 Unknown (qualifier value), Other (See Comments) [facility] (2 sources) Acetaminophen / HYDROcodone Drug Allergy [facility] (2 sources) Amitriptyline Drug Allergy [facility] (2 sources) Amoxicillin / Clavulanate Drug Allergy [facility] (4 sources) atomoxetine; Translations: [Strattera] Drug Allergy [facility] (1 source) atorvastatin Drug Allergy [facility] (2 sources) buPROPion Drug Allergy [facility] (2 sources) carBAMazepine Drug Allergy [facility] (1 source) Clindamycin Drug Allergy 016 [facility] (2 sources) Codeine Drug Allergy [facility] (4 sources) Dexamethasone; Translations: [Decadron] Drug Allergy [facility] (2 sources) Diclofenac Drug Allergy [facility] (2 sources) Doxycycline Drug Allergy [facility] (2 sources) DULoxetine Drug Allergy [facility] (20 sources) Fish derivative; Translations: [FISH DERIVED] Drug allergy (disorder) Hives [facility] (2 sources) Fluorometholone Drug Allergy [facility] (2 sources) fluticasone / salmeterol Drug Allergy [facility] (2 sources) gabapentin Drug Allergy [facility] (2 sources) hydrOXYzine Drug Allergy [facility] (2 sources) Ibuprofen Drug Allergy [facility] (2 sources) Ibuprofen Drug Allergy [facility] (1 source) Ketorolac Drug Allergy [facility] (2 sources) Ketorolac Drug Allergy [facility] (2 sources) meloxicam Drug Allergy [facility] (2 sources) Methadone Drug Allergy [facility] (2 sources) Methocarbamol Drug Allergy [facility] (2 sources) milnacipran Drug Allergy [facility] (2 sources) moxifloxacin Drug Allergy [facility] (2 sources) Nitrofurantoin Drug Allergy [facility] (2 sources) OXcarbazepine Drug Allergy [facility] (2 sources) PARoxetine Drug Allergy [facility] (4 sources) pregabalin; Translations: [Lyrica] Drug Allergy [facility] (2 sources) rOPINIRole Drug Allergy [facility] (1 source) Sulfonamides (Antibiotic) Drug allergy (disorder) [facility] (2 sources) topiramate Drug Allergy [facility] (2 sources) Valproate Drug Allergy [facility] (1 source) Verapamil Drug Allergy [facility] (4 sources) ziprasidone; Translations: [Geodon] Drug Allergy [facility] (10 sources) Adhesive agent; Translations: [ADHESIVE] Drug allergy rash [facility] (20 sources) Shellfish [facility] [employer] Other (20 sources) atomoxetine Drug Allergy Palpitations [facility] (20 sources) atomoxetine; Translations: [ATOMOXETINE HCL] Drug Allergy Palpitations, Other: See Comments, GI Disturbance [facility] (20 sources) DULoxetine; Translations: [DULOXETINE HCL] Drug Allergy 023 [facility] (20 sources) Eicosapentaenoate; Translations: [EICOSAPENTAENOIC ACID] Drug Allergy 017 [facility] (20 sources) Ketorolac Propensity to adverse reactions [facility] (20 sources) Ketorolac trometamol; Translations: [KETOROLAC TROMETHAMINE] Allergy to substance 011 Hives [facility] (20 sources) meloxicam Drug Allergy 019 [facility] (20 sources) Methocarbamol Drug Allergy [facility] (20 sources) milnacipran Drug Allergy Hives [facility] (20 sources) Nitrofurantoin Drug Allergy Hives, Rash [facility] (20 sources) Oxcarbazepine Allergy to substance GI intolerance, Hives, Palpitations [facility] (20 sources) Pregabalin Allergy to substance Palpitations [facility] (20 sources) Shellfish Allergy to substance Rash, Hives [facility] (20 sources) Sulfamethoxazole; Translations: [SULFAMETHOXAZOLE] Propensity to adverse reactions vomiting [facility] (20 sources) Topiramate Allergy to substance GI intolerance [facility] (20 sources) Valproate; Translations: [VALPROIC ACID] Drug Allergy [facility] (20 sources) ziprasidone Drug Allergy Palpitations [facility] (20 sources) ziprasidone; Translations: [ZIPRASIDONE HCL] Drug Allergy Hives, Palpitations, Other: See Comments [facility] (20 sources) Amoxicillin-Pot Clavulanate; Translations: [AMOXICILLIN-POT CLAVULANATE] Drug Intolerance Nausea And Vomiting [facility] (20 sources) Aloe-Sodium Chloride Propensity to adverse reactions [facility] (20 sources) Fish-Derived Products Drug Intolerance [facility] (20 sources) Moxifloxacin Hcl In Nacl Drug Intolerance [facility] (20 sources) Other; Translations: [OTHER] Propensity to adverse reactions Hives [facility] (20 sources) Wound Dressing Adhesive Drug Allergy Rash [facility] (1 source) Acetaminophen Drug Allergy [facility] (1 source) Clavulanate Drug Allergy vomiting [facility] (1 source) HYDROcodone Drug Allergy [facility] (1 source) salmeterol Drug Allergy [facility] (20 sources) Shellfish; Translations: [SHELLFISH DERIVED] Allergy to substance [facility] (1 source) Trimethoprim Drug Allergy vomiting [facility] (6 sources) Valproate; Translations: [divalproex sodium] Drug Allergy hair loss [facility] (2 sources) Adhesive Tape Propensity to adverse reactions to substance Rash [facility] (20 sources) buPROPion; Translations: [BUPROPION HCL] Drug Allergy Other: See Comments, GI Disturbance, Palpitations [facility] (4 sources) moxifloxacin; Translations: [MOXIFLOXACIN-SOD.C HLORIDE(ISO)] Drug Allergy Unknown [facility] (20 sources) Aloe Extract; Translations: [ALOE] Drug Allergy [facility] (20 sources) Fish - dietary Propensity to adverse reactions Hives, Rash [facility] (20 sources) Iodinated Contrast Media; Translations: [IODINATED CONTRAST MEDIA] Drug Intolerance Anaphylaxis [facility] (20 sources) Aloe vera preparation; Translations: [SODIUM CHLORIDE-ALOE VERA] Drug Allergy [facility] (20 sources) Sulfamethoxazole Drug Allergy Other (See Comments) [facility] (20 sources) Valproate; Translations: [DIVALPROEX] Drug Allergy [facility] (20 sources) Valproate Drug Allergy [facility] (20 sources) Verapamil; Translations: [VERAPAMIL HCL] Drug Allergy [facility] (20 sources) Adhesive Tape-Silicones; Translations: [ADHESIVE TAPE-SILICONES] Propensity to adverse reactions to drug Other (See Comments), [facility] Work Phone: (20 sources) Penicillin; Translations: [PENICILLIN] Drug Allergy Other (See Comments) [facility] (4 sources) Dexamethasone; Translations: [DEXAMETHASONE (PF)] Drug Allergy [facility] (1 source) PARoxetine; Translations: [PAROXETINE HCL] [...] to drug (disorder) [facility] (2 sources) Fish - dietary; Translations: [Fish] Food allergy (disorder) [facility] (1 source) Amitriptyline Drug Allergy [facility] (1 source) Amoxicillin Drug Allergy [facility] (1 source) atomoxetine Drug Allergy [facility] (1 source) buPROPion Drug Allergy [facility] (1 source) Codeine Drug Allergy [facility] (1 source) Dexamethasone Drug Allergy [facility] (1 source) Doxycycline Drug Allergy [facility] (1 source) DULoxetine Drug Allergy [facility] (1 source) fluticasone Drug Allergy [facility] (1 source) gabapentin Drug Allergy [facility] (1 source) Ibuprofen Drug Allergy [facility] (1 source) Ketorolac Drug Allergy [facility] (1 source) meloxicam Drug Allergy [facility] (1 source) Methadone Drug Allergy [facility] (1 source) milnacipran Drug Allergy [facility] (1 source) moxifloxacin Drug Allergy [facility] (1 source) OXcarbazepine Drug Allergy [facility] (1 source) PARoxetine Drug Allergy [facility] (1 source) pregabalin Drug Allergy [facility] (1 source) rOPINIRole Drug Allergy [facility] (1 source) Sulfamethoxazole Drug Allergy [facility] (1 source) topiramate Drug Allergy [facility] (1 source) Verapamil Drug Allergy [facility] (1 source) ziprasidone Drug Allergy [facility] (1 source) Contrast media; Translations: [Contrast Dye] Propensity to adverse reactions to drug (disorder) [facility] Rep[facility] Medications Current Medications Medication Drug Class(es) Dates Sig (Normalized) Sig (Original) Ajovy Autoinjector 225 mg/1.5 mL subcutaneous solution (3 sources) Start: 10-25-2021 inject 225 mg by subcutaneous injection every month [employer]ovy Autoinjector 225 mg/1.5 mL subcutaneous solution 225 mg, SubCutaneous, qMonth, Refills(s) 0, Blood glucose Start Date: 10/25/21 Status: Ordered albuterol 0.83 mg/ml inhalation solution (20 sources) beta2-Adrenergic Agonist Start: 04-08-2024 take 2.5 mg by inhalation every six hours as needed Albuterol Sulfate 2.5 mg /3 mL (0.083 %) solution for nebulization Active 2.5 MG INHALATION Every 6 hours as needed April 08, 2024 12:00am Complies with drug therapy Start: 06-14-2021 End: 01-25-2025 take 1 puff(s) by inhalation every four to six hours as needed Albuterol Sulfate 90 mcg/actuation HFA aerosol inhaler Active 2 PUFF INHALATION EVERY 4-6 HOURS as needed for Shortness Of Breath 8.5 January 25, 2025 10:53am Complies with drug therapy take 2 puff(s) by in halation every [...] mg oral tablet (20 sources) Benzodiazepine Start: 04-22-2025 take 1 tablet by mouth three times daily as needed for anxiety ALPRAZolam (XANAX) 1 mg tablet Indications: Anxiety Take 1 tablet (1 mg total) by mouth 3 (three) times a day as needed for anxiety. 90 tablet 1 04/22/2025 Active Start: 07-25-2024 End: 04-21-2025 take 1 tablet by mouth three times daily as needed Alprazolam 1 mg tablet Active 1 MG PO Three times daily as needed October 12, 2024 1:00am Complies with drug therapy Start: 07-10-2021 take 0.25 mg by mout [...] October 12, 2024 3:56pm [facility] (2 sources) Start: 01-02-2025 [facility] Active 0 [...] 04/28/18 Status: Ordered take 2 tablets by [facility] once daily in the morning ARIPiprazole [...] take 1 capsule by mouth once daily Aspirin 81 mg Capsule Active 81 MG PO Daily June 14, 2021 12:00am Complies with drug therapy atorvastatin 80 mg oral tablet (20 sources) [...] 3:57pm Start: 04-28-2018 take 2 tablets by mo [facility] at bedtime Lipitor 40 mg Tab [...] day(s), # 6 tab(s), Refills(s) 0, Pharmacy: [id number], 163, cm, 10/20/22 10:48:00 EST, Height/Length [...] Ordered Start: 06-14-2021 take 1 tablet by [facility] twice daily Benztropine 0.5 mg tablet Active 0.5 MG PO Twice daily June 14, 2021 12:00am Complies with drug therapy bifidobacterium infantis 4 mg oral capsule (4 sources) Start: 10-29-2022 End: 11-26-2022 take 1 capsule by mouth once daily Align 4 mg oral capsule 4 mg = 1 cap(s), Oral, Daily, X 28 day(s), # 28 cap(s), Refills(s) 0, Pharmacy: [id number], 163, cm, 10/29/22 14:56:00 EDT, Height/Length Dosing, 77.3, kg, 10/29/22 14:56:00 EDT, Weight Dosing Start Date: 10/29/22 Stop Date: 11/26/22 Status: Ordered blood-glucose meter (TRUE METRIX GLUCOSE METER) [facility] (18 sources) Start: 02-24-2025 blood-glucose meter (TRUE METRIX GLUCOSE METER) [facility] Indications: Diabetes mellitus without complication ([facility]) 1 Unit by miscellaneous route in the morning. 1 each 02/24/2025 Active Start: 02-24-2025 End: 02-24-2025 blood-glucose meter (TRUE ME TRIX GLUCOSE METER) [facility] Indications: Diabetes mellitus without complication ([facility]) 1 Unit by miscellaneous route in the morning. 1 each 02/24/2025 02/24/2025 Discontinued (Reorder) Budesonide / formoterol (11 sources) Corticosteroid, beta2-Adrenergic Agonist Start: 09-04-2021 Symbicort [...] 1 tablet by mouth twice daily Carvedilol 25 mg tablet Active 25 MG PO Twice daily October 12, 2024 1:00am Complies with drug therapy Start: 03-06-2022 End: 08-01-2023 take 1 tablet by mouth twice daily carvedilol 25 mg Tab 25 mg = 1 tab(s), Oral, BID, # 60 tab(s), Refills(s) 5, Pharmacy: [id number], 163, cm, 08/26/24 12:41:00 EST, Height/Length [...] 05/27/2024 Active take 1 capsule by mo ut once daily in the morning Cetirizine (ZYRTEC) [...] 1 capsule by mouth every twenty-four hours Diltiazem Hcl 120 mg capsule,extended release 24hr Active 120 MG PO Once October 12, 2024 1:00am Complies with drug therapy Start: 10-12-2024 take 1 capsule by [facility] every twenty-four hours Diltiazem Hcl 120 mg capsule,extended release 24hr Active 120 MG PO Once October 12, 2024 1:00am Start: 07-05-2023 take 1 capsule by [facility] once daily dilTIAZem CD (CARDIZEM CD) [...] bedtime 30 tablet 2 02/25/2025 03/27/2025 Active [id number] 0.3 ml EPINEPHrine 1 mg/ml auto-injector (20 sources) alpha-Adrenergic Agonist, beta-Adrenergic Agonist, Catecholamine Start: 10-12-2024 Epinephrine 0.3 mg/0.3 mL auto-injector Active 0.3 MG SUBCUT Once as needed October 12, 2024 1:00am Complies with drug therapy Start: 07-07-2024 EPINEPHrine (E PIPEN) 0.3 mg/0.3 [...] Start: 10-25-2021 take 1 capsule by mo [facility] every week ergocalciferol 50,000 intl units Cap 50,000 International_Unit = 1 cap(s), Oral, qWeek, Refills(s) 0, Prophylaxis Start Date: 10/25/21 Status: Ordered Start: 06-14-2021 Ergocalciferol (Vitamin D2) 1,250 mcg (50,000 unit) capsule Active 86202 MCG PO every week June 14, 2021 12:00am every saturday Complies with drug therapy Start: 06-14-2021 take 23176 ug by colin every week Ergocalciferol (Vitamin D2) Active 49595 MCG PO every week June 14, 2021 [...] day(s), # 90 tab(s), Refills(s) 0, Pharmacy: [id number], 163, cm, 10/29/22 14:56:00 EDT, Height/Length Dosing, 77.3, kg, 10/29/22 14:56:00 EDT, Weight Dosing Start Date: 10/29/22 Stop Date: 01/27/23 Status: Ordered 1.5 ml fremanezumab-vfrm 150 mg/ml prefilled syringe (20 sources) Start: 10-12-2024 Fremanezumab-V frm (Ajovy Autoinjector) 225 mg/1.5 mL auto-injector Active 225 MG SUBCUT every month October 12, 2024 1:00am Complies with drug therapy Start: 12-24-2023 End: 12-19-2025 Ajovy 225 MG/1.5ML [...] use of insulin ([facility]) APPLY 1 PAD TOPICALLY EVERY 14 (FOURTEEN) DAYS. CLEAN AREA PRIOR TO PLACING SENSOR 40 each 10/22/2024 Active Start: 09-21-2024 End: 10-22-2024 alcohol swabs (ALCOHOL PREP PADS) pads, medicated Indications: Type 2 diabetes mellitus with hyperglycemia, without long-term current use of insulin ([facility]) Apply 1 Pad topically every 14 (fourteen) days. Clean area prior to placing sensor 40 each 09/21/2024 10/22/2024 Discontinued Start: 05-06-2024 End: 09-19-2024 alcohol swabs (ALCOHOL PREP PADS) pads, medicated Indications: Type 2 diabetes mellitus with hyperglycemia, without long-term current use of insulin ([facility]) Apply 1 Pad topically every [...] 240 g 4 10/22/2024 Active Start: 10-12-2024 Lidocaine (Rec ticare) 5 % cream Active APPLIC TOPICAL Daily as needed October 12, 2024 1:00am Complies with drug therapy Start: 09-16-2024 lidocaine (Xyl ocaine) 5 % [...] (20 sources) Opioid Agonist Start: 12-20-2022 End: 04-12-2025 take 1 capsule by mouth every twenty-four hours loperamide (IMODIUM) 2 mg capsule TAKE 2 CAPSULES BY MOUTH AFTER 1ST LOOSE STOOL AND 1 CAPSULE AFTER EACH NEXT BOWEL MOVEMENT; DO NOT EXCEED 16MG (8 CAPSULES) IN 24 HOURS 20 capsule 1 04/12/2025 Active Start: 10-29-2022 End: 11-28-2022 Imodium 2 mg oral capsule 2 mg = 1 cap(s), Oral, q6hr, PRN as needed for loose stool, not to exceed 8 capsules, or 16 mg, in 24 hours, X 30 day(s), # 120 cap(s), Refills(s) 0, Pharmacy: [id number], 163, cm, 10/29/22 14:56:00 EDT, Height/Length Dosing, 77.3, kg,... Start Date: 10/29/22 Stop Date: 11/28/22 Status: Ordered Start: 06-14-2021 take 1 capsule by [facility] twice daily as needed Loperamide 2 mg capsule Active 2 MG PO Twice daily as needed for loose stools June 14, 2021 12:00am Complies with drug therapy Start: 07-12-2020 take 1 tablet by colin th twice daily as needed for diarrhea Imodium A-D 2 mg oral tablet See Instructions, PRN Diarrhea, 2 mg Oral BID and 2mg after each loose stool, # 120 tab(s), Refills(s) 6, Pharmacy: [facility], 162, cm, 03/30/20 10:05:00 EDT, Height/Length [...] use of insulin ([facility]) TAKE 1 TABLET (500 MG TOTAL) BY MOUTH DAILY WITH BREAKFAST. 30 tablet 5 04/15/2025 Active Start: 09-20-2022 take 1 tablet by colin th twice daily metformin 500 mg Tab TAKE ONE TABLET BY MOUTH TWICE A DAY Start Date: 09/20/22 Status: Ordered 24 hr mirabegron 50 mg extended release oral tablet (3 sources) beta3-Adrenergic Agonist Start: 01-21-2025 End: 05-31-2026 take 1 tablet by mouth once daily Myrbetriq 50 mg oral tablet, extended release 50 mg = 1 tab(s), Oral, Daily, X 30 day(s), # 30 tab(s), Refills(s) 11, Pharmacy: [facility], 163, cm, 01/21/25 11:57:00 EDT, [...] THE EVENING 30 tablet 11 03/22/2025 Active vfoncksb-kkoc-IT- calcium &mins (THERAGRAN-M) 9 mg iron-400 mcg tablet (20 sources) yiqowqlm-picv-VB -c alcium &mins (THERAGRAN-M) 9 mg iron-400 mcg tablet Take 1 tablet by mouth in the morning. Active nabumetone 500 mg oral tablet (20 sources) Nonsteroidal Anti-inflammatory Drug Start: 12-25-2024 End: 02-24-2025 Nabumetone 500 mg tablet Active 500 MG PO January 02, 2025 12:00am Complies with drug therapy Start: 11-28-2023 End: 04-14-2024 take 1 tablet by mouth twice daily as needed for pain nabumetone (Relafen) 750 MG tablet TAKE 1 TABLET (750 MG TOTAL) BY MOUTH 2 (TWO) TIMES A DAY NEEDED FOR PAIN. 11/28/2023 04/14/2024 Discontinued (Med list cleanup) Start: 09-17-2023 nabumetone 750 mg Tab Refills(s) 0 Start Date: 09/17/23 Status: Ordered naloxone (NARCAN) 4 mg/actuation spray,non-aerosol nasal spray (17 sources) Start: 02-24-2025 naloxone (NARCAN) 4 mg/actuation spray,non-aerosol nasal spray Administer 1 spray (4 mg total) into alternating nostrils as needed for opioid reversal. 2 each 1 02/24/2025 Active Naltrexone (7 sources) Opioid Antagonist Start: 03-05-2024 take 1 tablet by mouth once daily naltrexone 1.5 mg oral capsule See Instructions, take one tablet daily, # 30 tab(s), Refills(s) 0, Pharmacy: [facility], 163, cm, 03/05/24 15:26:00 EDT, Height/Length Dosing, 72.8, kg, 03/05/24 15:26:00 EDT, Weight Dosing Start Date: 03/05/24 Status: Ordered Quantity: 30.0 Unit: tab(s) Repeat number: 1 Start: 03-05-2024 take 1 tablet by colin th once daily naltrexone 1.5 mg oral capsule See Instructions, take one tablet daily, # 30 tab(s), Refills(s) 0, Pharmacy: [facility], 163, cm, 03/05/24 15:26:00 EDT, Height/Length Dosing, [...] 0 Start Date: 07/10/21 Status: Ordered nystatin 354369 unt/ml topical cream (20 sources) Polyene Antifungal Start: 03-24-2024 End: 10-27-2024 take 5 mL by mouth four times daily at bedtime nystatin (Mycostatin) 255162 UNIT/ML suspension TAKE 5ML BY MOUTH FOUR TIMES A DAY (MORNING, NOON, EVENING, BEDTIME) FOR 5 DAYS. 03/24/2024 Active Start: 06-27-2023 End: 11-11-2024 apply 15 g topically twice daily nystatin (MYCOSTATIN) cream APPLY TO AFFECTED AREA VIA TOPICAL ROUTE TWICE A DAY 15 g 1 10/27/2024 Active Start: 06-18-2023 nystatin (Myco statin) 435873 UNIT/ML suspension TAKE 5ML FOUR TIMES A [...] 5 03/22/2025 Active take 1 capsule by mo ut once daily PriLOSEC 40 MG 1 capsule Orally Once a day Active ondansetron 4 mg disintegrating oral tablet (20 sources) Serotonin-3 Receptor Antagonist Start: 08-26-2024 ondansetron 4 mg, SubLingual, PRN as needed for nausea/vomiting, Refills(s) 0 Start Date: 08/26/24 Status: Ordered Repeat number: 1 Start: 01-08-2025 ondansetron 4 mg, SubLingual, PRN as needed [...] every six hours as needed for nausea Ondansetron 4 mg tablet,disintegrating Active 4 MG PO Q6H as needed for Nausea June 14, 2021 12:00am Complies with drug therapy Zofran Active Oxygen (20 sources) oxygen Inhale continuously. Active Oxygen - [...] Date: 12/13/22 Status: Ordered polyethylene glycol 3350 634997 mg / potassium chloride 1480 mg / sodium bicarbonate 5720 mg / sodium chloride 30233 mg powder for oral solution (11 sources) Osmotic Laxative Start: take 2 doses by mouth once daily [...] tablets by mouth once daily at bedtime Pramipexole 1.5 mg tablet Active 3 MG PO Daily at bedtime June 14, 2021 12:00am Complies with drug therapy Start: 06-14-2021 take 1 tablet by colin th twice daily Pramipexole 1.5 mg tablet Active 1.5 MG PO Twice daily June 14, 2021 12:00am Complies with drug therapy Start: 06-14-2021 take 3 mg by mouth [...] # 90 tab(s), Refills(s) 0, Pharmacy: [facility], 162, cm, 05/15/22 13:20:00 EDT, Height/Length Dosing, 79, kg, 05/15/22 13:20:00 EDT, Weight Dosing Start Date: 09/05/22 Status: Ordered psyllium 520 mg oral capsule (14 sources) Start: 03-10-2025 take 1 capsule by mouth at bedtime psyllium (METAMUCIL) 0.52 gram capsule Indications: Altered bowel habits , Incontinence of feces with fecal urgency Take 1 capsule (0.52 g total) by mouth in the morning and at bedtime. 60 capsule 1 03/10/2025 Active rifAXIMin 550 mg oral tablet (13 sources) Rifamycin Antibacterial Start: 06-14-2021 take 1 tablet by mouth three times daily as needed for diarrhea Rifaximin (Xifaxan) 550 mg tablet Active 550 MG PO Three times daily as needed for Diarrhea June 14, 2021 12:00am Complies with drug therapy take 1 tablet by mouth every twe [...] 11 05/08/2024 06/07/2024 Active Start: 06-14-2021 End: 03-27-2025 take 1 tablet by mouth once daily as needed Rimegepant Sulfate (Nurtec) 75 MG tablet dispersible Indications: Intractable chronic migraine without aura and without status migrainosus Take 75 mg by mouth Daily as needed (Migraines) 8 tablet 11 02/25/2025 03/27/2025 Active simvastatin 40 mg oral tablet (2 [...] (20 sources) Cholinergic Muscarinic Antagonist Start: 01-28-20 24 take 1 tablet by mouth in the morning solifenacin (VESICARE) 10 mg tablet Take 1 tablet (10 mg total) by mouth in the morning. 01/28/2024 Active Start: 09-17-2023 take 1 tablet by colin th once daily Vesicare 10 mg Tab 10 mg = 1 tab(s), Oral, Daily, # 90 tab(s), Refills(s) 3, Pharmacy: [facility], 163, cm, 09/17/23 8:25:00 EST, Height/Length Dosing, 81, kg, 09/17/23 8:25:00 EST, Weight Dosing Start Date: 09/17/23 Status: Ordered Start: 09-04-2021 take 1 tablet by colin once daily Vesicare 10 mg Tab 10 mg = 1 tab(s), Oral, Daily, # 30 tab(s), Refills(s) 5, Pharmacy: [facility], 163, cm, 04/09/22 14:41:00 EDT, Height/Length [...] 04/30/2024 Active tiZANidine 4 mg oral capsule (12 sources) Central alpha-2 Adrenergic Agonist Start: 10-12-2022 [...] oral tablet (20 sources) Opioid Agonist Start: 04-20-2025 End: 04-25-2025 take 1 tablet by mouth every eight hours as needed for pain traMADoL (ULTRAM) 50 mg tablet Indications: Complex tear of medial meniscus of left knee, sequela Take 1 tablet (50 mg total) by mouth every 8 (eight) hours as needed for pain. 20 tablet 04/26/2025 Active Start: 12-01-2024 End: 04-18-2025 take 1 tablet by mouth every eight hours as needed for pain traMADoL (ULTRAM) 50 mg tablet Indications: Complex tear of medial meniscus of left knee, sequela Take 1 tablet (50 mg total) by mouth every 8 (eight) hours as needed for pain. 20 tablet 04/12/2025 04/18/2025 Discontinued (Reorder) Start: 09-20-2023 End: 10-04-2023 take [...] nostril(s) Daily as needed (Migraine) 6 each 11/13/2024 12/13/2024 Active Completed/Discontinued Medications Medication Drug [...] by mouth every six hours as needed Oxycodone-Acetaminophen 5-325 mg tablet Active 1 TAB PO Every 6 hours as needed October 12, 2024 1:00am Complies with drug therapy Start: 04-21-2024 End: 04-28-2024 take 1 tablet [...] (Therapy completed) baclofen 10 mg oral tablet (15 sources) gamma-Aminobutyric Acid-ergic Agonist Start: 01-02-2025 End: [...] (Therapy completed) blood-glucose meter (ONETOUCH ULTRA2 METER) [facility] (18 sources) Start: 09-23-2024 End: 02-24-2025 blood-glucose meter (ONETOUCH ULTRA2 METER) [facility] Indications: Diabetes mellitus without complication (CMS-HCC) 1 Unit by miscellaneous route in the morning. 1 each 09/23/2024 02/24/2025 Discontinued (Therapy completed) Start: 09-23-2024 blood-glucose meter (ONETOUCH ULTRA2 METER) [facility] Indications: Diabetes mellitus without complication (CMS-HCC) 1 [...] Continuous Blood Gluc Receiv er (Dexcom G6 tobacco checkout clerk) device (11 sources) Start: 10-24-2022 End: 04-12-2024 Continuous Blood Gluc Receiv er (Dexcom G6 tobacco checkout clerk) device 1 UNIT YEARLY 10/24/2022 04/12/2024 Discontinued (Discontinued by another clinician) Start: 10-24-2022 Continuous Blo od Gluc Senior Receptionist (Dexcom G6 tobacco checkout clerk) device 1 UNIT YEARLY 10/24/2022 Active Start: 10-24-2022 Continuous Blo od Gluc Senior Receptionist (Dexcom G6 tobacco checkout clerk) device 1 UNIT YEARLY 0 10/24/2022 [...] Blo od Gluc [facility]ensor (Dexcom G6 Sensor[facility] UNIT DIRECTED AND CHANGE EVERY 10 DAYS 0 01/21/2023 Active desoximetasone 0.5 mg/ml topical cream (7 sources) Corticosteroid Start: 06-14-2021 End: 12-07-2021 Desoximetasone [...] clinician) diclofenac sodium 0.01 mg/mg topical gel (7 sources) Nonsteroidal Anti-inflammatory Drug Start: 06-14-2021 End: [...] tablet by colin th four times daily Dicyclomine 20 mg tablet Active 20 MG PO Four times daily June 14, 2021 12:00am Complies with drug therapy take 1 tablet by colin th every eight hours Dicyclomine HCl 20 MG 1 tablet Orally Three times a day Active 1 ml erenumab-aooe 140 mg/ml auto-injector (9 sources) Start: 06-14-2021 End: 12-07-2021 inject 140 [...] Active flash glucose scanning reade r (FREESTYLE LILLIAM 14 DAY READER) [facility] (20 sources) Start: 08-21-2024 End: 02-24-2025 flash glucose scanning reade r (FREESTYLE LILLIAM 14 DAY READER) [facility] Indications: Diabetes mellitus without complication (CMS-HCC) 1 Unit by miscellaneous route every 14 (fourteen) days. 2 each 5 08/21/2024 02/24/2025 Discontinued (Therapy completed) Start: 08-21-2024 flash glucose scanning reader (FREESTYLE LILLIAM 14 DAY READER) [facility] Indications: Diabetes mellitus without complication (CMS-HCC) 1 Unit by miscellaneous route every 14 (fourteen) days. 2 each 5 08/21/2024 Active Start: 02-28-2024 End: 08-21-2024 flash glucose scanning reade r (FREESTYLE LILLIAM 14 DAY READER) [facility] 1 Unit by miscellaneous route in the morning. 1 each 02/28/2024 08/21/2024 Discontinued (Reorder) Start: 02-28-2024 flash glucose scanning reader (FREESTYLE LILLIAM 14 DAY READER) [facility] 1 Unit by miscellaneous route in the [...] 5 05/18/2024 12/15/2024 Discontinued (Side effects) Injovy (7 sources) Start: 12-07-2021 End: 10-12-2024 Injovy Discontinued [...] at bedtime June 14, 2021 12:00am nystatin 612751 unt/ml / triamcinolone acetonide 1 mg/ml topical [...] (Therapy completed) QUEtiapine 50 mg oral tablet (7 sources) Atypical Antipsychotic Start: 06-14-2021 End: 12-07-2021 [...] 4 Chronic Joint disorders and dislocations; trauma-related (12 sources) Acute meniscal tear, medial; Translations: [Complex [...] [Dyspnea, unspecified] Episodic Other lower respiratory disease (3 sources) Dyspnea; Translations: [Shortness of breath] 10-12-2024 [...] region] 01-25-2025 Episodic Other non-traumatic joint disorders (2 sources) Ankle pain; Translations: [Pain in right ankle [...] [Borderline personality disorder] Onset: 2 04-28-2018 Chronic Pulmonary heart disease (2 sources) Pulmonary hypertension; Translations: [Pulmonary hypertension, unspecified] 04-26-2025 Chronic Residual codes; unclassified (20 sources) Obstructive sleep apnea syndrome; Translations: [Obstructive sleep apnea (adult) (pediatric)] Onset: 3 09-11-2018 Chronic Residual codes; unclassified (20 sources) Sleep apnea; Translations: [Sleep apnea, unspecified] Onset: 3 06-16-2015 Chronic Comment on above: does not use cpap an y longer pt uses CPAP Residual codes; unclassified (3 sources) Sleep related hypoxemia; Translations: [Sleep related [...] UTERUS] Onset: 3 Episodic Residual codes; unclassified (5 sources) Past history of procedure; Translations: [Other specified postprocedural states] 03-30-2024 Episodic Comment on above: 1996 Residual codes; unclassified (5 sources) Tobacco user; Translations: [Tobacco use] 03-30-2024 [...] 02-25-2023 Episodic Other aftercare (3 sources) Other watcher automat long goods (current) drug therapy; Translations: [OTH DRY BOX OPERATOR CURRENT DRUG THERAPY] Onset: 3 Episodic [...] Test Name Value Interpretation Reference Range Facility Coding Summaryon 04-24-2025 Coding Summary HTMLBase 64 TrjowoxrEMz6oBq+PGhlYWQ+ MW7RLPSlE29lxDVunW0gF8CS TElOSywgQVBQTElOSyIgbmFt ED6feRXpPCMj IC8+DV9lOLMeVlqgqPCyt1T9 oVX8F88ikg6aABulmAK7FOVm UoAiwoxdf4keePn5XYsyTple OyBt ZRImaG84DET7eP62Nk15sTCj mAYxx5vwrGn7XsAjMNYpPTF1 wApjWReat9UsFULzR56flMIn c2U6 AQZhvTdltBIaJiXqwQJ4xZ0t OUvdbjytx7xmngvwMrt6cs09 tRFvj6Z7jPK2R2UpelO8FQFd bGQg PjhvwSWCpI7bqfgsa2wzlcqx OpHhZAErVKa6SIm7QWQwdBfj DkGsZO26WHC3RVWvniSqS0Je LWFs vPnnNbQ7b4G9Hw8FJ2IZVrga E2SKKZLTEVoqmRK+LN97dy21 S9FvXgatYuv0SGJiHPQ8cTE0 aD0n XNFzWDurh9N2pLL8Y0JtawIq tj8tw3iwCYBlMMjmX69yoQQz k8D9VQOanDB6WXIidNpgGfZb aG93 Oyc+WMSehIajm9VnGihol2je u9mldRj0XhxmKRAzcyUsbNss WRN2v2WqLv7hGJEbsQO5hYT7 aD0i LkVtGcS0CJedB780GwWuoZPl HffnK42lR4LkgLZ+PHRyPjx0 HRXzfJcxFP6bA8JoCQVrxwyn bGVm wWyfIR5xKUElftneHJQrjU0w MMPbH1j2DjImNhC6FKmnX1Mu KLNwxikoLq11rV6bSlDsFoK1 MGlu K7BnjqP9RUIxmLUyATjjSJZ3 L85vz5G7JUTfMGDiZGT0lBZ8 pZ0ifGobnuybsHTaoHxtczIf dGlj SKvpCHciP490CPFmkPooCnNr ZGluZyBEYXRlOiAgMDkvMDYv MjAyNTwvdGQ+ZSDfMJI6zLyd PSAn oQHsOCldHx1xyVqpoPveMT6m NAHbocdiLWLifV9gROAhrTXs xGyxUP9zOFZdsneem879VjDi MHB0 VJBvoPMcI5WrjJ5cBqZkOXJz DIXmI7PphHBnYZvbO677YQwu YtP7TVUhbvFuM4TcFMZavMmp OiB0 h7H3Ir4Bb8JbaatlE8VruOFc WjZmHsmyMAp8S8PoNsxkyEQ+ IN97CJAtVM23OUj5SMO0wBul PSdi DJVfM5QfcM0xScCvEAZdAAVy Oyc+PHRhYmxlIHdpZHRoPScx SKSrNgGmuFobGD3bBk7mXVZz LWNv uLpqiLJkChTfc3spHLRoAEyc EU3mqXokK6AgqIP9FHIgr7y3 Eg03Y26fY9OvvSS+PGNvbCB3 aWR0 xY8xHvOtYlN8RYfmM601VkDp mSFfUctzg6skk0kchDo4OlK8 OTMshwTtrVpiYOF5y6ElEa52 Y29s IHdpZHRoPSIxNSUiIHZhbGln wt4wbU1uVn2+DIDktZN8ePX9 rL2sAeYkKbF3RLgwI153OhPe cCIv Sxzku8rcs5biwGl1LfBySCGl mbXlqRgzODW3z6MfRn99U3Kg zIyna1LbHze2wa68fEDkm9V0 bGU9 J8SxZLAjbsqovCRmeGywYN5d LPXajufyWLNexF7dILAzF6g2 GtDbDzC4ICroT5TctbA9UAOw bGQg ZNVcyFRKmF2zmbgdy4ftcubs JcOaVQEhJJi1BQm2ACNdaDpl XrRaIOO3XeC2YOE6bMLhxU4f bGln uspsxK0cSzc+JER3nNRhbYZF OT6nZoahvLI+LYKyWKT7wUvq WLocZFQxnV3xTCSyR9l0MwBn LjA1 NTnzU5PcgqJ5DGTefKFtOIPv gQGXyN2dznsfe9zmxqkkKaTg JCQlNYu8VQq3YFAwhUzxBmGo ZWZ0 OmD4VLB4xCCevG0ycNbivgyq oP9gGxw+GlvcrEttQCX4JVu6 V1AuOjq7TMMukIreSM3kjSUw ZGlu Lb5ppAkxeSxcOI2qBCXcnawo r361EjQrc9ggRLHqqFQpCZmf KXS7I54co3N4AXOjQONdQSS0 dGV4 qB4pgXocowtokZEvwWeinrWo dEvxSJjiWNwrR817QPYilJpl YbIvRWe8E1RuSox9VOOqpFuk ZT0n hRQwEGwoBb1pzTkuyPhwRU7g RNZfxpqyf896YbTdf1irYNJs iOQwSWegJWA2P63xk2G0XNWw MDAw WIR4fAA9sK1siQwhzukrcQAn bHrkjmZenBpnBXnzTCvhH349 LSIwwBkzKbNxgBt1K3YtFjd1 ZCBz lLgtBK5npPEkQIhjQx2ldVas iMvuPU2qRSGyatslh653RoNq n7txULLbdUVbUZcoNUU0O92w b3I6 KARhAQDjVEL4eRL3uT1ulJza bjogbGVmdDsgdmVydGljYWwt DDroR030XYDdtLqqEtMztMle bnQg ERtwZAi0I8MjGuvltNU+PC90 FYPdDE60dDCjdTXaw4ebaWh6 SwKvGQZtDXM3iNdaVVzqy5Ck ZXIt F85suUFjk2R2BNLjuIgalMNb StQmgBA8uX8tITunlilkz8ua yjwsHfknw3kceo53aH58J90j IHdp AERoZXTnLSZaIGItuXerql4p qY9cXl7+PDHbySY0zAU8xK5i BOMfIaD9VGzoE182PcSejMIu Pjxj b9szh7voeLb4JvN3PPDrymIv iKlvRNV0r8NzVn48W47uUJwj YTOwYZMxVXLtUFPhfGbjkd2o dG9w Ii8+KJOgxUD1tYC1mT4lJiNa DnN8PXxuX804SdMmhEHdHdeu I65iF7IbjTJ+KGJfHgd3RWVw dHls OR0wpWRpEEcaFn5nQMG3YkPo ZrEaNAvhY1PmQOTqfvaodzlm pYS6RMKzELWtuX05Ro7gxAkq MTBw lTNTzF3jhhzqy0pmpmxcRvAn FOXhUIa2MLn9DDVryGsoIhIs VXP3BgS6QTW8aBMkrQ6txXwl bjog oB4bU2DmPOQpksicPq31nB8w AjWsZnV0LPraCcw+UEFSSVNI XERKPH7KKBMkOyllkSB+PHRk IHN0 zDnbCZgrGQUhcW2yAPWvD0z5 RfNkZoE2JVtiT1ShRKGcxfcj Fl51lY8kHpLrMyN4AHbsE1Gl bnQ6 IGIpfHVeZGybHCC5H34ny3O7 MMHjFAHrSQS5yQM0iI0lbIel bjogbGVmdDsgdmVydGljYWwt YWxp L159JVDmmMojXcScFgEiHiM4 WmU1U7CnDan5GLDlrLbsWV0q lSLlJLgdMb4kgTsuwWstYD8h NTBp uxuhCLCwnB4wUERvmDSogIhs PB0lXJWdajmxx225QiZjDNS0 QPGhyAYuR8TodC1vQxByLAPe MDAw F5RedKDkNRptW059BVfcCnJ1 ZJZpbzGpD5MsPYBoeMzdUfO0 w6H8Pg56MNZTGZPposgxpUU+ PHRk JDB1mYqkIDzeOJOcpL3vSAJk J6i0ZvGxGbH3SGolT7CfHXYl clleHi24aA6sHfNwJsY5ONyv O2Zv juV5XLKgtSMdIYyeXHG7T37v y8H4ETLrGQUbPJS4vSW1aH5b bGlnbjogbGVmdDsgdmVydGlj YWwt PPetK703WENxxVucEsVOEKUK RTwvdGQ+LSGtIZL3dDfbNHjb GUPcvZ2kNIJhG5p0FkPhGkL1 MGlu R8NsZOJforfvUs96lM0rBgBa WxZ2KDqxU9NnyqY4PFUmcXUe CWaaCOW4I93ov7P2NSCyAAJw MDA7 wOH9gM1hzNeohoqbpQFdlIbm urAzqLpdHXvlELqgQ726XSLp jZizCk0XWD23JF33H1IlWbyu dGFi bGU+PHRhYmxlIHdpZHRoPScx RPFmVqHfrLwbIA3tTe7qEKKn RUOhpAxzcZDtWfRzm3gbQYBp ZTsg BJ4giRdwE8VasZP0XSVep4n1 Lw75R18jS6PnrZA+PGNvbCB3 nZG1iD5jKoUaUtN9SRdlA747 InRv dZOrSujwb2mag1apvXr7YaDp AYQpukJfcTsvFNU1d1EmRd36 Y45vWAaaOGZtEGJiUZBxNDFq bGln kg3yfI4qOb5+QAQhmRT0tPS3 yD9rRzRzVrT2DKrnA327OqTz rRIjTxfqR27aC7KgcGN+PHRy Pjx0 YMIuzFlhQQ6uaNQaFIkzAt3b JXR9AvFkRuAjNMjhW7KsUULn mxkzpmpioGJ9GQZlXVHzfO06 Zm9u cKslYs0pXQAyMRV3UEZcjLHi X5CnaC3mRwObVPVkEDPmZ9Cg dUVjDPqbI863AXzpYzE7EODu cnRp G9MeGCDftGviObF3y3R3Rq9X tIcquITcOM9xBsLgYKa8T8Uy Brl4OSJdtBlfPG6aoEHfFHbd Zy1y bBezqDsxHD6pMGSvchvlb779 LsVok1pdKLJhwVJoDFobFPY1 X73pw8W9IIZkWNZuNKX7iTD8 dC1h bGlnbjogbGVmdDsgdmVydGlj VEcmESiyX557DBUljXsvYiTR Sjb3P1LrKsw8PPFzcUziHJ6g cGFk PIxaUy6xuBdfyVqbIT5eCYCc iyubn693RxIws8arCLFxeTZh ITdkTSR4Q69ij0P4JCNbWSPn MDA7 hCC2fJ3thFnncqxxdXJhpQlm krTonMwlIUcaRRyeK676ZMWn hCkgYl7ULpj4O6TvUzu8LRAc dHls WY6uiMCvTKicKb6xvHdirJem HP2vGUGzesfwo608JcNaw0lx JGLjrFMbMQimGQV9G07uz8N7 ICMw HSGpJKL2rIP3nC4yyIwjqvcn bGVmdDsgdmVydGljYWwtYWxp E128MOGqeWagXfEcnGRbCbul dGQ+ DK82xr60I9PmEywcZnj3VJZs UOM3qJI3xM1jYUKmBXuwf9E8 pNV0O7AwqvLhqi6ep6usTXPa ZTog Y29 (more content not included)... [facility] Progress Note - Nurseon Progress Note - Nurse Notes from [facility] aarti on 11/13/24 received and [address] Tobias reviewed PAT, no further orders received at this time. [Electronically Signed on: 04/21/2025 10:44 EDT] Marsha Steele RN [Verified on: 04/21/2025 10:44 EDT] Marsha Steele RN [facility] Provider Orderson 04-21-2025 Provider Orders [id number] TIFF [facility] .Auto Diff 1on 5 Auto Routt % 8 % Normal 1-12 [facility] Comment on above: Performed By: #### 1 [id number], [id number], [id number] #### [facility] (DEFAULT) [address] [place] [address] 36769 Baso Abs# 0.0 x10 Normal 0.0-0.2 [facility] Comment on above: Performed By: #### 1 [id number], [id number], [id number] #### [facility] (DEFAULT) [address] [place] [address] 93723 Basophils/100 WBC (Bld) 0.3 % Normal 0.2-2.0 [facility] Comment on above: Performed By: #### 1 [id number], [id number], [id number] #### [facility] (DEFAULT) [address] [place] [address] 92810 Eos Abs# 0.0 x10 Normal 0.0-0.4 [facility] Comment on above: Performed By: #### 1 [id number], [id number], [id number] #### [facility] (DEFAULT) [address] [place] [address] 83345 Eosinophils/100 WBC (Bld) 0.5 % Low 0.9-4.0 [facility] Comment on above: Performed By: #### 1 [id number], [id number], [id number] #### [facility] (DEFAULT) [address] [place] [address] 02305 Lymph Abs# 3.2 x10 High 1.3-2.9 [facility] Comment on above: Performed By: #### 1 [id number], [id number], [id number] #### [facility] (DEFAULT) [address] [place] [address] 60225 Lymphocytes/100 WBC (Bld) 40 % Normal 14-48 [facility] Comment on above: Performed By: #### 1 [id number], [id number], [id number] #### [facility] (DEFAULT) [address] [place] [address] 71172 Routt Abs# 0.6 x10 Normal 0.0-0.8 [facility] Comment on above: Performed By: #### 1 [id number], [id number], [id number] #### [facility] (DEFAULT) [address] [place] [address] 74592 Neut Abs# 4.1 x10 Normal 1.5-9.2 [facility] Comment on above: Performed By: #### 1 [id number], [id number], [id number] #### [facility] (DEFAULT) [address] [place] [address] 03935 Neutrophils/100 WBC (Bld) 51 % Normal 44-88 [facility] Comment on above: Performed By: #### 1 [id number], [id number], [id number] #### [facility] (DEFAULT) [address] [place] [address] 22129 BMP Standardon 04-20-2025 Anion gap [Moles/Vol] 11.7 mmol/L Normal 5.0-19.0 [facility] Comment on above: Performed By: #### 1 [id number], [id number], [id number] #### [facility] (DEFAULT) [address] [place] [address] 35505 Breakpoint Chem Normal [facility] Comment on above: Performed By: #### 1 [id number], [id number], [id number] #### [facility] (DEFAULT) [address] [place] [address] 82095 BUN/Creat Ratio Unable to Calculate Invalid Interpretation Code 4.6-16.2 [facility] Comment on above: Performed By: #### 1 [id number], [id number], [id number] #### [facility] (DEFAULT) [address] [place] [address] 78528 Calcium [Mass/Vol] 9.6 mg/dL Normal 8.9-10.3 [facility] Comment on above: Performed By: #### 1 [id number], [id number], [id number] #### [facility] (DEFAULT) [address] [place] [address] 01542 Chloride [Moles/Vol] 99 mmol/L Low 101-111 [facility] Comment on above: Performed By: #### 1 [id number], [id number], [id number] #### [facility] (DEFAULT) [address] [place] [address] 05494 CO2 [Moles/Vol] 29 mmol/L Normal 21-32 [facility] Comment on above: Performed By: #### 1 [id number], [id number], [id number] #### [facility] (DEFAULT) [address] [place] [address] 76444 Creatinine [Mass/Vol] 0.98 mg/dL Normal 0.60-1.30 [facility] Comment on above: Performed By: #### 1 [id number], [id number], [id number] #### [facility] (DEFAULT) [address] [place] [address] 27752 Glucose [Mass/Vol] 114.0 mg/dL Normal 74.0-118.0 [facility] Comment on above: Performed By: #### 1 [id number], [id number], [id number] #### [facility] (DEFAULT) [address] [place] [address] 35977 Potassium [Moles/Vol] 3.7 mmol/L Normal 3.6-5.1 [facility] Comment on above: Performed By: #### 1 [id number], [id number], [id number] #### [facility] (DEFAULT) [address] [place] [address] 43891 Sodium [Moles/Vol] 136.0 mmol/L Normal 136.0-144 . 0 [facility] Comment on above: Performed By: #### 1 [id number], [id number], [id number] #### [facility] (DEFAULT) [address] [place] [address] 96928 Urea nitrogen [Mass/Vol] mg/dL Low 8-26 [facility] Comment on above: Performed By: #### 1 [id number], [id number], [id number] #### [facility] (DEFAULT) [address] [place] [address] 95227 eGFR Non AA 59 mL/min/1.73m2 Invalid Interpretation Code [facility] Comment on above: Performed By: #### 1 [id number], [id number], [id number] #### [facility] (DEFAULT) [address] [place] [address] eGFR AA >60 Invalid Interpretation Code [facility] Comment on above: Performed By: #### 1 [id number], [id number], [id number] #### [facility] (DEFAULT) [address] [place] [address] CBC w/ Auto Diffon 5 Erythrocyte distribution width (RBC) [Ratio] 14.2 % Normal 11.5-15.0 [facility] Comment on above: Performed By: #### 1 [id number], [id number], [id number] #### [facility] (DEFAULT) [address] [place] [address] Hematocrit (Bld) [Volume fraction] 36.9 % Normal 33.7-40.4 [facility] Comment on above: Performed By: #### 1 [id number], [id number], [id number] #### [facility] (DEFAULT) [address] [place] [address] Hemoglobin (Bld) [Mass/Vol] 13.1 g/dL Normal 11.3-15.9 [facility] Comment on above: Performed By: #### 1 [id number], [id number], [id number] #### [facility] (DEFAULT) [address] [place] [address] Man Diff? Auto Invalid Interpretation Code [facility] Comment on above: Performed By: #### 1 [id number], [id number], [id number] #### [facility] (DEFAULT) [address] [place] [address] MCH (RBC) [Entitic mass] 36 pg High 24-34 [facility] Comment on above: Performed By: #### 1 [id number], [id number], [id number] #### [facility] (DEFAULT) [address] [place] [address] MCHC (RBC) [Mass/Vol] 36 g/dL Normal 26-37 [facility] Comment on above: Performed By: #### 1 [id number], [id number], [id number] #### [facility] (DEFAULT) [address] [place] [address] 35140 MCV (RBC) [Entitic vol] 100 fL Normal 81-100 M [facility] Comment on above: Performed By: #### 1 [id number], [id number], [id number] #### [facility] (DEFAULT) [address] [place] [address] 06489 Platelet 208 x10 Normal 138-427 [facility] Comment on above: Performed By: #### 1 [id number], [id number], [id number] #### [facility] (DEFAULT) [address] [place] [address] 99830 Platelet mean volume (Bld) [Entitic vol] 8.8 fL Normal 6.3-10.2 [facility] Comment on above: Performed By: #### 1 [id number], [id number], [id number] #### [facility] (DEFAULT) [address] [place] [address] 34000 RBC 3.70 x10 Normal 3.70-5.30 [facility] Comment on above: Performed By: #### 1 [id number], [id number], [id number] #### [facility] (DEFAULT) [address] [place] [address] 02698 WBC 7.9 x10 Normal 3.5-10.5 [facility] Comment on above: Performed By: #### 1 [id number], [id number], [id number] #### [facility] (DEFAULT) [address] [place] [address] 68165 Progress Note - Nurseashlee - Progress Note - Nurse Dr. Tobias request ing notes from Echo. An echo was ordered by pulmonology on 10/12/24 and unsure if patient ever followed through. But there was an Echo that was completed 05/2021. [place] [facility] [place] was [place] on [place]07/21, no recent echo was completed there. [Electronically Signed on: 04/20/2025 15:00 EDT] Marsha Steele RN [Verified on: 04/20/2025 15:00 EDT] Marsha Steele RN Normal [facility] UA Zrwwe1ct 04-20-2025 UA Bacteria None Normal [facility] Comment on above: Order Comment: Urina lysis Microscopic order added on by [employer] Rules system. Performed By: #### 1 [id number], [id number] #### [facility] (DEFAULT) [address] [place] [address] UA RBC None Seen [facility] Comment on above: Order Comment: Urina lysis Microscopic order added on by [employer] system. Performed By: #### 1 [id number], [id number] #### [facility] (DEFAULT) [address] [place] [address] UA Squam Epi Moderate [facility] Comment on above: Order Comment: Urina lysis Microscopic order added on by [employer] system. Performed By: #### 1 [id number], [id number] #### [facility] (DEFAULT) [address] [place] [address] UA WBC 0-2 [facility] Comment on above: Order Comment: Urina lysis Microscopic order added on by [employer] system. Performed By: #### 1 [id number], [id number] #### [facility] (DEFAULT) [address] [place] [address] UA w Culture if Ind Standard on 04-20-2025 Breakpoint UA [facility] Comment on above: Performed By: #### 1 [id number], [id number] #### [facility] (DEFAULT) [address] [place] [address] 33149 Color (U) Yellow [facility] Comment on above: Performed By: #### 1 [id number], [id number] #### [facility] (DEFAULT) [address] [place] [address] Culture? No [facility] Comment on above: Result Comment: Resu lt created by rule GL_MAGR_ADD_UA_CULT Result created by rule GL_MAGR_ADD_UA_CULT1 Performed By: #### 1 [id number], [id number] #### [facility] (DEFAULT) [address] [place] [address] Glucose (U) [Mass/Vol] Negative Normal [facility] Comment on above: Performed By: #### 1 [id number], [id number] #### [facility] (DEFAULT) [address] [place] [address] Ketones Ql (U) Negative [facility] Comment on above: Performed By: #### 1 [id number], [id number] #### [facility] (DEFAULT) [address] [place] [address] Micro? Indicated Invalid Interpretation Code [facility] Comment on above: Result Comment: Resu lt created by rule GL_MAGR_ADD_UA_MICRO Performed By: #### 1 [id number], [id number] #### [facility] (DEFAULT) [address] [place] [address] UA Bilirubin Negative Normal [facility] Comment on above: Performed By: #### 1 [id number], [id number] #### [facility] (DEFAULT) [address] [place] [address] UA Blood Negative Normal [facility] Comment on above: Performed By: #### 1 [id number], [id number] #### [facility] (DEFAULT) [address] [place] [address] UA Clarity CLEAR Normal CLEAR [facility] Comment on above: Performed By: #### 1 [id number], [id number] #### [facility] (DEFAULT) [address] [place] [address] UA Leuk Est SMALL Abnormal NEGATIVE [facility] Comment on above: Performed By: #### 1 [id number], [id number] #### [facility] (DEFAULT) [address] [place] [address] 71014 UA Nitrite Negative Normal NEGATIVE [facility] Comment on above: Performed By: #### 1 [id number], [id number] #### [facility] (DEFAULT) [address] [place] [address] UA pH 6.0 Normal 5-8 [facility] Comment on above: Performed By: #### 1 [id number], [id number] #### [facility] (DEFAULT) [address] [place] [address] 60715 UA Protein Negative Normal NEGATIVE [facility] Comment on above: Performed By: #### 1 [id number], [id number] #### [facility] (DEFAULT) [address] [place] [address] 87175 UA Spec Grav 1.015 Normal 1.001-1.03 5 [facility] Comment on above: Performed By: #### 1 [id number], [id number] #### [facility] (DEFAULT) [address] [place] [address] 74624 UA Urobilinogen 0.2 mg/dL Normal 0.2-1.0 [facility] Comment on above: Performed By: #### 1 [id number], [id number] #### [facility] (DEFAULT) [address] [place] [address] 69634 Urine Source Clean Catch Normal [facility] Comment on above: Performed By: #### 1 [id number], [id number] #### [facility] (DEFAULT) [address] [place] [address] 65835 XR Bone Length Studies [facility] 04-20-2025 XR Bone Length Studies Scanograms EXAMINATION: XR Bone Length Studies Scanograms HISTORY: Left total knee athroplasty COMPARISON: No relevant comparison available. FINDINGS: RIGHT FINDINGS: BONES: No acute fracture or dislocation. Mild to moderate degenerative changes of the knee with narrowing of medial joint space. The right leg measures 853 mm from the femoral head to the tibial plafond SOFT TISSUES: Negative. No visible soft tissue swelling. OTHER: Negative. LEFT FINDINGS: BONES: No acute fracture or dislocation. Mild to moderate degenerative changes of the knee with narrowing of medial joint space. The left leg measures 850 mm from the femoral head to the tibial plafond SOFT TISSUES: Negative. No visible soft tissue swelling. OTHER: Negative. IMPRESSION: The right leg is 3 mm longer than the left Final Dictated by: Mamie Coombs MD Dictated DT/TM: 04/22/25 1:56 Signed (Electronic Signature): Mamie Coombs MD 04/22/25 2:06 pm Technologist: Emily RUSHING [facility] CT lung screeningon 04-13-20 CT lung screening [facility] [place] [address] [place] [address] CT Scan Report Signed Patient: Rock Herrera MR#: [id number] : 1970 Acct:[id number] Age/Sex: 54 / F ADM Date: 04/13/25 Loc: CT Room: Type: [facility] Attending Dr: CARRILLO Boyd APRN Copies to: [...] months. Impression dictated by: Champ Hobson Jr., DDanicaODanica 04/13/2025 2:14 PM Dictation Location: [place] [address] Transcribed By: NICK 04/13/25 1414 Dictated By: Champ Hobson Jr, 04/13/25 1413 Signed By: 04/13/25 1414 Normal [facility]/Cl inic [...] 4. Normal estimated pulmonary artery pressure. [1] [facility] with Dr. Beltran on 03/03/2020: CONCLUSIONS: [...] today and based on other vitals at [facility], suggest that she decrease carvedilol from 25 mg twice daily down to 12.5 mg twice daily. Continue with current dose of diltiazem at 180. Ordered: carvedilol, 12.5 mg = 1 tab(s), Oral, BID, # 180 tab(s), Refills(s) 3, Pharmacy: [facility], 163, cm, 03/19/25 13:49:00 EDT, Height/Length Dosing, 71.5, kg, 03/19/25 14:01:00 EDT, Maykel (more content not included)... Normal [facility] Comment on above: Result Comment: [...] Saturday 2:00 PM EDT With: Nella NORRIS, En [place] Where: [facility] [place] Medications What How Much When Instructions Unchanged [...] (Palpitations, Vo (more content not included)... Normal [facility] Reminderson 03-17-2025 Reminders Reminders From: Iqra Butcher To: EU - Administrative; Sent: 03/17/2025 16:00:31 EDT Show up: 04/07/2025 16:00:00 EDT Subject: 3 month F/U Due Date/Time: 06/15/2025 15:59:00 EDT Reminder/Recall Schedule patient for a 3 mo f/u with a PVR, with LT Normal [facility] Urology Office/Clinic Noteon 03-17-2025 Urology Office/Clinic Note [...] blood or infection UUI at least daily. +SPOHIA. +FI. Currently taking Vesicare 10 mg. She [...] opt against pre-op abx. -Patient to call [facility] to complete SILVANA & KUB -F/U [...] Urnls Dip Stick Auto w/o Microscopy POC [id number] Follow-up With When Contact Information Daisy NORRIS, Sofiya, FELISHA Additional Instructions: Schedule cysto F/U in [...] (06/26/2021), U (more content not included)... Normal [facility] Comment on above: Result Comment: Elec tronically Signed By: Daisy NORRIS, Sofiya\.br\Date and Time Signed: 03/17/25 16:36 EDT DRUG SCREEN, URINEon 025 AMPHETAMINE/METHAMP Negative Normal Negative [facility] Comment on above: Result Comment: AMPH /METH screening cut off = 1000 ng/mL Performed By: #### D HENDRICKSON #### [facility] (TT) [address] [place] [address] VIR BARBITURATES Negative Normal Negative [facility] Comment on above: Result Comment: Veronika iturates screening cut off value = 200 ng/mL Performed By: #### D HENDRICKSON #### [facility] ([facility]) [address] [place] [address] VIR BENZODIAZEPINES Positive Abnormal Negative [facility] Comment on above: Result Comment: Alfredo odiazepines screening cut off value = 200 ng/mL Performed By: #### D HENDRICKSON #### [facility] ([facility]) [address] [place] [address] VIR CANNABINOIDS Negative Normal Negative [facility] Comment on above: Result Comment: Malathi abinoids/THC screening cut off value = 50 ng/mL Performed By: #### D HENDRICKSON #### [facility] ([facility]) [address] [place] [address] VIR COCAINE METABOLITE Negative Normal Negative [facility] Comment on above: Result Comment: Coca ine screening cut off value = 300 ng/mL Performed By: #### D HENDRICKSON #### [facility] ([facility]) [address] [place] [address] VIR ECSTASY Negative Normal Negative [facility] Comment on above: Result Comment: Ecst asy screening cut off value = 500 ng/mL Performed By: #### D HENDRICKSON #### [facility] ([facility]) [address] [place] [address] VIR METHADONE Negative Normal Negative [facility] Comment on above: Result Comment: Meth adone screening cut off value = 300 ng/mL. Performed By: #### D HENDRICKSON #### [facility] ([facility]) [address] [place] [address] VIR OPIATES Negative Normal Negative [facility] Comment on above: Result Comment: Opia ellen screening cut off value = 300 ng/mL This test is used for the detection of codeine, hydrocodone (>1000 ng/mL), morphine and hydromorphone (>900 ng/mL) in urine. Performed By: #### D HENDRICKSON #### [facility] ([facility]) [address] [place] [address] VIR OXYCODONE Negative Normal Negative [facility] Comment on above: Result Comment: Oxyc odone screening cut off value = 300 ng/mL This test is used for the detection of oxycodone and oxymorphone in urine. Performed By: #### D HENDRICKSON #### [facility] ([facility]) [address] [place] [address] VIR PHENCYCLIDINE Negative Normal Negative [facility] Comment on above: Result Comment: Phen cyclidine screening cut off value = 25 ng/mL Performed By: #### D HENDRICKSON #### [facility] ([facility]) [address] [place] [address] VIR Drug Screen, Urineon 025 Amphetamines Screen method >1000 ng/mL Ql (U) Negative Negative [facility] Comment on above: AMPH/METH screening cut off = 1000 ng/mL Barbiturates Screen Ql (U) Negative Negative [facility] Comment on above: Barbiturates screeni ng cut off value = 200 ng/mL Benzodiazepines Ql (U) Positive Abnormal Negative Pr [facility] Comment on above: Benzodiazepines scre ening cut off value = 200 ng/mL Cocaine Ql (U) Negative Negative [facility] Comment on above: Cocaine screening cu t off value = 300 ng/mL Interpretation and review of laboratory results Abnormal [facility] Methadone (Mec) [Mass/Mass] Negative Negative [facility] Comment on above: Methadone screening cut off value = 300 ng/mL. Methylenedioxymethamphet amine Screen Ql (U) Negative Negative [facility] Comment on above: Ecstasy screening cu t off value = 500 ng/mL Opiates Ql (U) Negative Negative [facility] Comment on above: Opiates screening cu t off value = 300 ng/mL This test is used for the detection of codeine, hydrocodone (>1000 ng/mL), morphine and hydromorphone (>900 ng/mL) in urine. oxyCODONE [Mass/Vol] Negative Negative [facility] Comment on above: Oxycodone screening cut off value = 300 ng/mL This test is used for the detection of oxycodone and oxymorphone in urine. Phencyclidine Screen method >25 ng/mL Ql (U) Negative Negative [facility] Comment on above: Phencyclidine screen ing cut off value = 25 ng/mL Tetrahydrocannabinol Screen method >50 ng/mL Ql (U) Negative Negative [facility] Comment on above: Cannabinoids/THC scr eening cut off value = 50 ng/mL [facility] POCT Hemoglobin [id number] B y: Amaris Hilton on 03-16-2025 HbA1c (Bld) [Mass fraction] 5.3 % 4 - 7 % [facility] TRAMADOL AND METABOLITE, Uon 03-16-2025 O-DESMETHYLTRAMADOL 6503 ng/mL Normal Cutoff:25 [facility] Comment on above: Result Comment: ADDITIONAL INFORMATION Testing performed by Liquid Chromatography-Tandem Mass Spectrometry (LC-MS/MS). This test was developed and its performance characteristics determined by [facility] in a manner consistent with CLIA requirements. This test has not been cleared or approved by the U.S. Food and Drug Administration. Test Performed by: [facility] [address] [place] [address] Cost Clerk: Natasha Marshall Ph.D.; CLIA# [id number] Performed By: #### T REANNA #### [facility] [employer] ([facility]) [address] [place] [address] VIR TRAMADOL 4090 ng/mL Normal Cutoff:25 [facility] Comment on above: Performed By: #### T REANNA #### [facility] ([facility]) [address] [place] [id number] VIR H&P Updateon 02-23-2025 H&P Update H&P [...] Health Status Procedure history: Carpal tunnel release (173288090) on 08/03/2024 at 54 Years. Ulnar carpal complex ligament (186508298) on 08/03/2024 at 54 Years. Epidural injection of lumbar spine using fluoroscopic guidance (8335160180) on 12/11/2023 at 53 Years. Comments: 01/01/2024 11:15 SRIKANTH Griffin RN, Victoria Coto L4-L5 no relief, made worse Colonoscopy (439877927) on 01/17/2023 at 52 Years. right 3rd metatarsal deformity repair w/screw (54485607) on 11/21/2022 at 52 Years. Right 2nd, 3rd, 4th hammer toe repair w/k-wire (206002023) on 11/21/2022 at 52 Years. Esophagogastroduodenosco py (828564673) on 03/29/2022 at 51 Years. Comments: 03/29/2022 12:42 Justina Garcia RN esophageal dilation, small gastric bezoar Peroneal tendon (155827782) on 11/08/2021 at 51 Years. Comments: 11/08/2021 14:20 Padmini Pimentel LPN right peroneal tendon repair with synovectomy Esophagogastroduodenosco py (344506237) on 06/26/2021 at 50 Years. Comments: 06/26/2021 11:15 LIZZETTE THRASHER RN dilation Urodynamics (616081670) on 05/16/2021 at 50 Years. Colonoscopy (758964276) on 03/14/2020 at 49 Years. Catheterization of left heart (447948342) on 03/03/2020 at 49 Years. Comments: 03/03/2020 14:22 Galo Ruby RN diagnostic Removal of toenail (437197841) on 10/22/2018 at 48 Years. Comments: 10/22/2018 11:23 Corine Lee RN RIGHT GREAT AND FIFTH DIGIT PERMANENT NAIL AVULSION Excision of Downey's neuroma (7832065545) on 10/22/2018 at 48 Years. Comments: 10/22/2018 11:24 JUDIE Mosqueda RN, Corine Young EXCISION OF NEUROMA LEFT FOOT Tarsal tunnel release (732973524) on 05/07/2018 at 47 Years. Comments: 05/07/2018 13:21 SRIKANTH Bueno RN, Joyce left Right tarsal tunnel release on 02/15/2016 at 45 Years. Left instep plantar fasciotomy with division of soft tissue & fascia & muscle. on 08/17/2015 at 45 Years. right instep plantar fasciotomy with division of muscle and fascia on 06/22/2015 at 44 Years. Tubal ligation (644649830). Hysterectomy (106035994). Carpal tunnel release (763127188). Comments: 06/16/2015 15:17 SRIKANTH Hall RN, Brenda x 2 Ulnar nerve decompression (173701006). Comments: 06/16/2015 15:19 SRIKANTH Hall RN, Brenda x 2 Sinus (4154900354). Comments: 06/16/2015 15:26 SRIKANTH Hall RN, Brenda x 2 Mortons neuroma (5096534180). Comments: 06/16/2015 15:27 SRIKANTH Hall RN, Brenda x 6 Tarsal tunnel (88216374). Comments: 06/16/2015 15:27 SRIKANTH Hall RN, Brenda x 2 Lithotripsy (926893721). Appendectomy (306078628). Breast surgery (8399802902). Comments: 06/16/2015 15:29 SRIKANTH Hall RN, Brenda x 2 - removal of milk ducts Suspension of bladder (3545995). Colonoscopy (757835722). Esophagogastroduodenosco py (198700657). ingrown toenail removal. Comments: 08/09/2015 13:46 JUDIE Blake RN, Chelsea x3 Cholecystectomy (23832829). Arthroscopy of knee (991475216). salpingectomy with unilateral oophorectomy. ESWL of kidney (19771491). Excision of ganglion cyst (9946444078). Esophagogastroduodenosco py (198665118). Comments: 09/06/2022 13:43 EST - Workman RN, Shahnaz Antral erosions Colonoscopy (496899144). Ulnar nerve at elbow (767848493). Social History Social & Psychosocial Habits Alcohol 08/13/2024 Risk Assessment: Low Risk 08/13/2024 Frequency: 1-2 times per year Comment: tamiko - 01/22/2020 16:25 - Al CARTAGENA,RN, Mora Coto 08/13/2024 Use: Never Comment: tamiko. - 10/12/2022 13:40 - Vanessa Dawn RN Substance Abuse 08/13/2024 Risk Assessment: Denies Substance Abuse 08/13/2024 Use: Current Comment: tamiko [...] Rash. L (more content not included)... Normal [facility] Comment on above: Result Comment: Elec tronically Signed By: LILI WALSH, Donaldo Lozada\Date and Time Signed: 02/23/25 07:59 EDT [place] [facility] [facility] [place] [facility] [place] 23, 2025 ROCK HERRERA [address] [place] [address] : 1970 [place] , You missed your scheduled appointment on: [...] cancellations. Sincerely, [facility] Dr. Donaldo Pearson [facility] H&P Updateon 02-18-2025 H&P Update H&P [...] Health Status Procedure history: Carpal tunnel release (214450647) on 08/03/2024 at 54 Years. Ulnar carpal complex ligament (584885830) on 08/03/2024 at 54 Years. Epidural injection of lumbar spine using fluoroscopic guidance (6499743753) on 12/11/2023 at 53 Years. Comments: 01/01/2024 11:15 SRIKANTH Griffin RN, Victoria Coto L4-L5 no relief, made worse Colonoscopy ([id number]) on 01/17/2023 at 52 Years. right 3rd metatarsal deformity repair w/screw (30638776) on 11/21/2022 at 52 Years. Right 2nd, 3rd, 4th hammer toe repair w/k-wire (832076301) on 11/21/2022 at 52 Years. Esophagogastroduodenosco py (897603799) on 03/29/2022 at 51 Years. Comments: 03/29/2022 12:42 SRIKANTH Nassar RN, Justina esophageal dilation, small gastric bezoar Peroneal tendon (500745597) on 11/08/2021 at 51 Years. Comments: 11/08/2021 14:20 SRIKANTH Barksdale LPN, Padmini right peroneal tendon repair with synovectomy Esophagogastroduodenosco py (311549460) on 06/26/2021 at 50 Years. Comments: 06/26/2021 11:15 LIZZETTE THRASHER RN dilation Urodynamics (468318068) on 05/16/2021 at 50 Years. Colonoscopy (341007538) on 03/14/2020 at 49 Years. Catheterization of left heart (105168747) on 03/03/2020 at 49 Years. Comments: 03/03/2020 14:22 Galo Ruby RN diagnostic Removal of toenail (136012892) on 10/22/2018 at 48 Years. Comments: 10/22/2018 11:23 Corine Lee RN RIGHT GREAT AND FIFTH DIGIT PERMANENT NAIL AVULSION Excision of Downey's neuroma (1145683975) on 10/22/2018 at 48 Years. Comments: 10/22/2018 11:24 Corine Lee RN EXCISION OF NEUROMA LEFT FOOT Tarsal tunnel release (170447681) on 05/07/2018 at 47 Years. Comments: 05/07/2018 13:21 Joyce Rae RN left Right tarsal tunnel release on 02/15/2016 at 45 Years. Left instep plantar fasciotomy with division of soft tissue & fascia & muscle. on 08/17/2015 at 45 Years. right instep plantar fasciotomy with division of muscle and fascia on 06/22/2015 at 44 Years. Tubal ligation (829561953). Hysterectomy (307881833). Carpal tunnel release (261935890). Comments: 06/16/2015 15:17 SRIKANTH Hall RN, Brenda x 2 Ulnar nerve decompression (481089195). Comments: 06/16/2015 15:19 SRIKANTH Hall RN, Brenda x 2 Sinus (3637583552). Comments: 06/16/2015 15:26 SRIKANTH Hall RN, Brenda x 2 Mortons neuroma (4050363580). Comments: 06/16/2015 15:27 SRIKANTH Hall RN, Brenda x 6 Tarsal tunnel (69657046). Comments: 06/16/2015 15:27 SRIKANTH Hall RN, Brenda x 2 Lithotripsy (340344264). Appendectomy (117582570). Breast surgery (9254029193). Comments: 06/16/2015 15:29 KAMILAHT Ana Hall RN, Brenda x 2 - removal of milk ducts Suspension of bladder (6562897). Colonoscopy (492392582). Esophagogastroduodenosco py (328243009). ingrown toenail removal. Comments: 08/09/2015 13:46 JUDIE Blake RN, Chelsea x3 Cholecystectomy (74720642). Arthroscopy of knee (251403058). salpingectomy with unilateral oophorectomy. ESWL of kidney (99071588). Excision of ganglion cyst (0228416529). Esophagogastroduodenosco py (623377985). Comments: 09/06/2022 13:43 JUDIE Gilman RN, Shahnaz Antral erosions Colonoscopy (106613686). Ulnar nerve at elbow (853354428). Social History Social & Psychosocial Habits Alcohol 08/13/2024 Risk Assessment: Low Risk 08/13/2024 Frequency: 1-2 times per year Comment: tamiko - 01/22/2020 16:25 - Al CARTAGENA,RN, Mora Coto 08/13/2024 Use: Never Comment: tamiko. - 10/12/2022 13:40 - Vanessa Dawn RN Substance Abuse 08/13/2024 Risk Assessment: Denies Substance Abuse 08/13/2024 Use: Current Comment: tamiko [...] Ibuprofen- Ra (more content not included)... Normal [facility] Comment on above: Result Comment: juan bliss Electronically Signed By: Donaldo PEARSON MD XR Ankle - right 3 Viewson 0 02-04-2025 Imaging Result: Negative fractures visualized with notable large enthesophyte and notable hardware fixation to forefoot [facility] Radiology Study observation (narrative) [facility] Urine Cytology ([facility])on 0 01-26-2025 Urine Cytology Diagnosis Info Invalid Interpretation Code [facility] Comment on above: Result Comment: A:Ur ine,Clean Catch:Bladder Wash Interpretation - Adequate cellularity for evaluation. CPT 96200 MicroScopic Description - Adequacy - Gross Description Site ID:A color light Yellow fixative Alcohol Specimen designated Clean Catch received in alcohol preservative and labeled with the patient???s name, consists of 70ml clear light yellow fluid. Electronically signed by : on: 01/26/2025 12:55:27 Performed By: #### 1 [id number] #### [facility] Laboratory [address] [place] [address] Ambulatory Visit Summaryon 0 01-21-2025 Ambulatory Visit Summary Ambulatory Visi t Summary ROCK HERRERA :1970 Visit Date:01/21/2025 Ambulatory Visit Instructions Your Diagnosis [...] Appointments Follow Up with [facility] When: Comments: For procedure as scheduled. Where: Medications What How Much When Instructions New mirabegron (Myrbetriq 50 mg oral tablet, extended release) 1 Tablets By Mouth Every day Duration: 30 Days Refills: 11 Pickup at [facility] Unchanged solifenacin (solifenacin 10 mg Tab) 1 [...] Milligram Subcuta (more content not included)... Normal [facility] Urine Cytology ([facility])on 0 01-21-2025 Method of Extraction Bladder Urine Normal [facility] Comment on above: Performed By: #### 1 [id number] #### [facility] Laboratory [address] Number of Jars 1 Invalid Interpretation Code [facility] Comment on above: Performed By: #### 1 [id number] #### [facility] Laboratory [address] [place] [address] Specimen Clean Catch Normal [facility] Comment on above: Performed By: #### 1 [id number] #### [facility] Laboratory [address] [place] [address] Type of Service Technical Only Normal [facility] Comment on above: Performed By: #### 1 [id number] #### [facility] Laboratory [address] [place] [address] Urology Office/Clinic Noteon 01-21-2025 Urology Office/Clinic Note [...] E&M of Est. Patient Moderate 30-39 Min 19857 Influenza immunization status assessed 1030F Medication list [...] Urnls Dip Stick Auto w/o Microscopy POC 16851 2. History of kidney stones (Z87.442: Personal history of urinary calculi) Recent flank pain and gross hematuria. All sx have resolved. Pt has had a lot of CTs so we will try to limit radiation. KUB/SILVANA for stones. Ordered: Body Mass Index (BMI) documented 3008F Current tobacco smoker 1034F Depression Screening Negative 3352F E&M of Est. Patient Moderate 30-39 Min 73262 Influenza immunization status assessed 1030F Medication list [...] Urnls Dip Stick Auto w/o Microscopy POC 22734 3. Gross hematuria (R31.0: Gross hematuria) Intermittent [...] E&M of Est. Patient Moderate 30-39 Min 99260 Urine Cytology ([facility]) Orders: mirabegron, 50 mg = 1 tab(s), Oral, Daily, X 30 day(s), # 30 tab(s), Refills(s) 11, Pharmacy: [facility], 163, cm, 01/21/25 11:57:00 EDT, Height/Length Dosing, 70, kg, 01/21/25 11:57:00 EDT, Weight Dosing Follow-up With When Contact Information [facility] Additional Instructions: For procedure as scheduled. Patient Education Kidney Stones, Thiy-vw-Ccrt Problem List/Past Medical History Ongoing Anxiety BMI 30.0-30.9,adult Change in bowel habits Colon polyp Depression Dysuria Esophageal spasm Family history of colorectal cancer Fecal incontinence Feeling of incomplete bladder emptying Flank pain Foreign body in stomach, sequela Gastric (more content not included)... 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 01/02/2025 1:17 PM Dictation Location: [place] [address] Transcribed By: [facility] 01/02/25 1317 Dictated By: Solo Alvarez DO 01/02/25 1313 Signed By: 01/02/25 1317 Normal [facility] MICROALBUMIN / CREATININE UR INE RATIOon 12-15-2024 Albumin DL <= 20 mg/L (U) [Mass/Vol] mg/dL Normal 0.0-1.9 [facility] Comment on above: Performed By: #### M ALBU #### [facility] ([facility]) [address] [place] [address] VIR MALB/CREAT RATIO Normal [facility] Comment on above: Result Comment: Urin e Microalbumin / Creatinine ratio not calculated due to non-numeric component. Performed By: #### M ALBU #### [facility] ([facility]) [address] [place] [address] VIR URINE CREATININE,RDM 56.03 mg/dL Normal [facility] Comment on above: Performed By: #### M ALBU #### [facility] ([facility]) [address] [place] [address] VIR 36on 12-09-2024 36 Patient called and states she can not move appt due to being on fixed income and does not have the gas money. Patient is going to call PCP to see if they will fill the medication. Patent is keeping upcoming appt the same. No further action needed. Normal [facility] 36on 12-07-2024 36 Lvm to call office b ack to reschedule appointment to sooner appointment [facility] 36 Lvm to have patient come into office before we can refill RX, please move appointment up when patietn comes back [facility] 36 Patient is calling asking for refill of Tramadol. [phone] [facility] Orders Onlyon 12-07-2024 Orders Only [id number] Violet Herrera ie J 1970 F Date Provider Department Center 12/07/2024 67049-LCIQWJETHRO GAXIOLA ORTHO MPORTHO No family history on file [facility] Telephoneon 12-07-2024 Telephone [id number] Violet Herrera ie J 1970 F Date Provider Department Center 12/07/2024 803-YAMILETH SAEED MP ORTHO MPORTHO No family history on file [facility] Telephone [id number] Violet Herrera ie J 1970 F Date Provider Department Center 12/07/2024 792-NATHAN DIANE ORTHO MPORTHO No family history on file Reason for Visit and Comments: Medication [Other] [facility] 36on 11-30-2024 36 Patient called saimaaparna kimball for Tramadol to be refilled and to let you know her Pharmacy closes at 1730 [facility] 36 Patient called to request refill on Please see pended medication. Pharmacy Varied- [facility] - [place], [place] - [address] [facility] [address] [facility] [address] [facility] [address] Patient Good # [phone] [facility] Orders Onlyon 11-30-2024 Orders Only [id number] Violet Herrera ie J 1970 F Date Provider Department Center 11/30/2024 JETHRO WEEKS ORTHO MPORTHO No family history on file [facility] Telephoneon 11-30-2024 Telephone [id number] Violet Herrera J 1970 F Date Provider Department Center 11/30/2024 YURI JOYA MP ORTHO MPORTHO No family history on file [facility] 36on 11-25-2024 36 Pt informed. [facility] Orders Onlyon 11-25-2024 Orders Only [id number] Violet Herrera J 1970 F Date Provider Department Center 11/25/2024 JETHRO WEEKS MP ORTHO MPORTHO No family history on file [facility] 36on 11-24-2024 36 Kaylynn [facility] and states they did not receive tramadol script can you please resend? Thank you!! [facility] 36 Patient called to request refill on Tramadol Please see pended medication. Pharmacy Varied- [facility] - [place], [place] - [address] [facility] [address] [facility] [address] [facility] [address] Patient Good # [phone] [facility] Refillon 11-24-2024 Refill [id number] Violet Herrera ie J 1970 F Date Provider Department Center 11/24/2024 PHIL LIANG MP ORTHO MPORTHO No family history on file Reason for Visit and Comments: Med Refill [[id number]] [facility] 36on 11-16-2024 36 Patient called to request refill on Tramadol Please see pended medication. Pharmacy Varied- [facility] - [place], [place] - [address] [facility] [address] [facility] [address] [facility] [address] Patient Good # [phone] [facility] Refillon 11-16-2024 Refill [id number] Violet Herrera 1970 F Date Provider Department Center 11/16/2024 PHIL LIANG MP ORTHO MPORTHO No family history on file Reason for Visit and Comments: Med Refill [[id number]] [facility] echo transthoracicon [facility] echo transthoracic [facility] Main [place] [id number] Echocardiogram Signed Patient: Rock Herrera MR#: [id number] : 1970 Acct:[id number] Age/Sex: 54 / F ADM Date: 11/13/24 Loc: Room: Type: [facility] Attending Dr: CARRILLO Boyd APRN Ordering Provider: Valarie Conley APRN, ACNP-BC Date of Service: 11/13/24 [facility] echo transthoracic: R06.02 - Shortness of breath Copies to: Molina Leon MD, [facility] Valarie Conley APRN, ACNP-BC RDCS, RVT [...] 38.0 ml 163.0 cm __ Pat Weight (HM): 71.2 kg QLAB Heart Model EDV (HM)_phl: 120.0 ml EF (HM)_phl: 65.0 % ED Current (HM)_phl: 60.0 % ESV (HM)_phl: 42.0 ml HR (HM)_phl: 44.0 BPMES Current (HM)_phl: 30.0 % LV Length ED (HM)_phl: 79.0 mmSV (HM)_phl: 79.0 ml ED Default ()_phl: 60.0 % LV Length ES ()_phl: 63.0 mm ES Default ()_phl: 30.0 % Electronically si (more content not included)... Normal [facility] on 11-09-2024 36 Patient is graciain jigar a refill of Tramadol. Normal [facility] 36on 11-06-2024 36 Patient called to request refill on 11-06-24 Please see pended medication. [facility] [place] [place] - [address] [place] [address] A [facility] [address] Patient Good # [phone] [facility] Refillon 11-06-2024 Refill [id number] Violet Herrera 1970 F Date Provider Department [place] 11/06/2024 26827-QPNGAICORY MCCOLLUM MP ORTHO MPORTHO No family history on file Reason for Visit and Comments: Med Refill [[id number]] [facility] Follow-Upon 11-03-2024 Follow-Up [id number] Violet Herrera ie J 1970 F Date Provider Department Center 11/03/2024 438LAN ZAVALA MP ORTHO MPORTHO No family history on file Level of Service:10278 PA OFFICE/OUTPATIENT ESTABLISHED SF MDM 10 MIN () Reason for Visit and Comments: Follow-up [539738] Pain [136] Follow-up [711555] Pain [136] [facility] 36on 10-27-2024 36 Patient called to request refill on 10-27-24 Please see pended medication. Pharmacy [facility]- [facility] [address] A [facility] [address] Patient Good # [phone] [facility] Orders Onlyon 10-27-2024 Orders Only [id number] Violet Herrera ie J 1970 F Date Provider Department Center 10/27/2024 81357-VFTYPKMTQGFGBRIGID HOLLOWAYMP ORTHO MPORTHO No family history on file [facility] 10-27-2024 Refill [id number] Violet Herrera ie J 1970 F Date Provider Department Center 10/27/2024 3625-YURI MILLER MP ORTHO MPORTHO No family history on file Reason for Visit and Comments: Med Refill [[id number]] [facility] DRUG SCREEN, URINEon 025 AMPHETAMINE/METHAMP Negative Normal [facility]G [facility] Comment on above: Result Comment: AMPH /METH screening cut off = 1000 ng/mL Performed By: #### D HENDRICKSON #### [facility] ([id number]) [address] [place] [address] BARBITURATES Negative Normal NEG [facility] Comment on above: Result Comment: Veronika iturates screening cut off value = 200 ng/mL Performed By: #### D HENDRICKSON #### [facility] ([id number]) [address] [place] [address] BENZODIAZEPINES Positive Abnormal NEG [facility] Comment on above: Result Comment: Conf irmation available upon request. Benzodiazepines screening cut off value = 200 ng/mL Performed By: #### D HENDRICKSON #### [facility] ([id number]) [address] [place] [address] CANNABINOIDS Negative Normal NEG [facility] Comment on above: Result Comment: Malathi abinoids/THC screening cut off value = 50 ng/mL Performed By: #### D HENDRICKSON #### [facility] ([id number]) [address] [place] [address] COCAINE METABOLITE Negative Normal NEG [facility] Comment on above: Result Comment: Coca ine screening cut off value = 300 ng/mL Performed By: #### D HENDRICKSON #### [facility] ([id number]) [address] [place] [address] ECSTASY Negative Normal NEG [facility] Comment on above: Result Comment: Ecst asy screening cut off value = 500 ng/mL This report is intended for use in clinical monitoring or management of patients. Performed By: #### D HENDRICKSON #### [facility] ([id number]) [address] [place] [address] METHADONE Negative Normal NEG [facility] Comment on above: Result Comment: Meth adone screening cut off value = 300 ng/mL. Performed By: #### D HENDRICKSON #### [facility] ([id number]) [address] [place] [address] OPIATES Negative Normal NEG [facility] Comment on above: Result Comment: Opia ellen screening cut off value = 300 ng/mL NOTE: This test is used for the detection of codeine, hydrocodone (>1000 ng/mL), morphine and hydromorphone (>900 ng/mL) in urine. Performed By: #### D HENDRICKSON #### [facility] ([id number]) [address] [place] [address], [address] [place] [address] OXYCODONE Positive Abnormal NEG [facility] Comment on above: Result Comment: Conf irmation available upon request. Oxycodone screening cut off value = 300 ng/mL NOTE: This test is used for the detection of oxycodone and oxymorphone in urine. Performed By: #### D HENDRICKSON #### [facility] ([id number]) [address] [facility] [address], [address] [place] [address] PHENCYCLIDINE Negative Normal NEG [facility] Comment on above: Result Comment: Phen cyclidine screening cut off value = 25 ng/mL Performed By: #### D HENDRICKSON #### [facility] ([id number]) [address] [place] [address], [address] [place] [address] 36on 10-20-2024 36 Patient called to request refill on oxycodone Please see pended medication. Pharmacy [place] [address] Patient Good # [phone] [facility] Orders Onlyon 10-20-2024 Orders Only [id number] Violet Herrera ie J 1970 F Date Provider Department Center 10/20/2024 49272-AOKXAPSFETLABRIGID HOLLOWAYMP ORTHO MPORTHO No family history on file [facility] Refillon 10-20-2024 Refill [id number] Violet Herrera ie J 1970 F Date Provider Department Center 10/20/2024 MARYANA REGALADO MP ORTHO MPORTHO No family history on file Reason for Visit and Comments: Med Refill [[id number]] [facility] 36on 10-13-2024 36 Patient called to request refill on 10-13-24 Please see pended medication. Pharmacy Varied- [facility], [facility] [address] [facility] [address] Patient Good # [phone] [facility] Orders Onlyon 10-13-2024 Orders Only [id number] SharonViolet ie J 1970 F Date Provider Department Center 10/13/2024 65255-IFGRMESRYFCRSUMMER HOLLOWAY ORTHO MPORTHO No family history on file [facility] 10-13-2024 Refill [id number] SharonViolet ie J 1970 F Date Provider Department [place] 10/13/2024 97308-NNJQUDCORY JASON MP ORTHO MPORTHO No family history on file Reason for Visit and Comments: Med Refill [[id number]] [facility] 36on 10-07-2024 36 Spoke with [facility] they don't have lynda at [facility] patient will have to get CT done here call and left message for patient to schedule at [facility] 36 [facility] radiology called and would like to know the protocol for the lt knee ct for the lynda. Patient is scheduled for Saturday, but they would like a response by Saturday the if possible. Please return call at [phone] can ask for caden or janneth [facility] 36on 10-06-2024 36 Patient called to request refill on oxycodone Please see pended medication. Pharmacy Var[facility]- [facility], [place] - [address] [facility] [address] [facility] A [facility] [address] Patient Good # [phone] [facility] Orders Onlyon 10-06-2024 Orders Only [id number] BrabirmViolet ie J 1970 F Date Provider Department Center 10/06/202402056-MNNRHAECNZBGSUMMER HOLLOWAY ORTHO MPORTHO No family history on file Normal [facility] Refillon 10-06-2024 Refill [id number] Violet Herrera 1970 F Date Provider Department Center 10/06/2024 MARYANA REGALADO MP ORTHO MPORTHO No family history on file Reason for Visit and Comments: Med Refill [[id number]] [facility] 36on 09-29-2024 36 Patient called in fo r pain medication refill and got sent gabapentin states she is allergic to gabapentin and can't take it. [facility] 36 Patient called to request refill on 09-29-24 Please see pended medication. Pharmacy [facility] [place] [address] Patient Good # [phone] [facility] MM TOMOSYNTHESIS SCREENING B Ion 09-29-2024 [facility] [address] [place] [id number] Mammography Report Signed Patient: ROCK HERRERA MR#: [id number] : 1970 Acct:[id number] Age/Sex: 54 / F ADM Date: 09/29/24 Loc: MAMMO Attending Dr: David Villalobos D.O. Ordering Physician: David Villalobos D.O. Results: Date of Service: 09/29/24 Follow Up: Procedure(s): MM tomosynthesis screening BI Accession Number(s): [id number] cc: David Villalobos D.O.; Nikki Vergara NP Patient Name: ROCK HERRERA MR#: [id number] : 1970 Exam Date: 09/29/2024 Ordering Doctor: [...] ovarian cancer at age 60. LOCATION: [facility] BREAST COMPOSITION: The breasts are heterogeneously [...] Signed By: 09/29/24 1445 DD/ 1444 TD/TT: Medical Intern: [facility] Radiology, Radiologi MD mazin - 09/29/2024 The [place] [id number] Mammography Report Signed Patient: ROCK HERRERA MR#: [id number] : 1970 Acct:[id number] Age/Sex: 54 / F ADM Date: 09/29/24 Loc: MAMMO Attending Dr: David Villalobos D.O. Ordering Physician: David Villalobos D.O. Results: Date of Service: 09/29/24 Follow Up: Procedure(s): MM tomosynthesis screening BI Accession Number(s): [id number] cc: David Villalobos D.O.; Nikki Vergara NP Patient Name: ROCK HERRERA MR#: [id number] : 1970 Exam Date: 09/29/2024 Ordering Doctor: [...] ovarian cancer at age 60. LOCATION: [facility] BREAST COMPOSITION: The breasts are heterogeneously [...] Signed By: 09/29/24 1445 DD/ 1444 TD/TT: Medical Intern: [facility] Radiology Study observation (narrative) [facility] MM TOMOSYNTHESIS SCREENING B IOrdered By: Radiologist Radiology on 09-29-2024 [facility] Work Phone: Orders Onlyon 09-29-2024 Orders Only [id number] Violet Herrera J 1970 Date Provider Department Center 09/29/2024 62105-FXZVUDLLDYGAPONCHO HOLLOWAY*MP ORTHO MPORTHO No family history on file Normal [facility] Refillon 09-29-2024 Refill [id number] Violet Herrera ie J 1970 F Date Provider Department Center 09/29/2024 65132-ZAAJSECORY MCCOLLUM MP ORTHO MPORTHO No family history on file Reason for Visit and Comments: Med Refill [247704] Normal [facility] Follow-Upon 09-28-2024 Follow-Up [id number] Violet Herrera J 1970 Date Provider Department Center 09/28/2024 433-JOSSELINE ABAD MP ORTHO MPORTHO No family history on file Level of Service:32961 PA OFFICE/OUTPATIENT ESTABLISHED MOD MDM 30 MIN (GC,57) Reason for Visit and Comments: Pain [136] [facility] 36on 09-25-2024 36 Called derik no answer unable to leave message [facility] 36 Derik from [facility] radiolo gy is wondering if there is anything different he needs to do for the CT for the Lynda knee surgery or if it is the same protocol. Phone number [phone] [facility] Follow-Upon 09-22-2024 Follow-Up [id number] Violet Herrera 1970 F Date Provider Department Center 09/22/2024 LAN HAGEN MP ORTHO MPORTHO No family history on file Level of Service:67096 PA POSTOP FOLLOW UP VISIT RELATED TO ORIGINAL PX () Reason for Visit and Comments: Follow-up [718789] [facility] COMPREHENSIVE METABOLIC PANE Bulmaro 09-15-2024 Albumin [Mass/Vol] 4.2 g/dL Normal 3.2-5.3 [facility] Comment on above: Performed By: #### C ALEXI MARIE, 66630-3 #### [facility] ([id number]) [address], [address] [place] [address] ALP [Catalytic activity/Vol] 96 U/L Normal 39-130 [facility] Comment on above: Performed By: #### C ALEXI MARIE, 97121-2 #### [facility] ([id number]) [address], [address] [place] [address] ALT [Catalytic activity/Vol] 15 U/L Normal 0-31 [facility] Comment on above: Performed By: #### C ALEXI MARIE, 87769-1 #### [facility] ([id number]) [address], [address] [place] [address] Anion gap [Moles/Vol] 11 mmol/L Normal 5-15 [facility] Comment on above: Performed By: #### C ALEXI MARIE, 09397-8 #### [facility] ([id number]) [address], [address] [place] [address] AST [Catalytic activity/Vol] 22 U/L Normal 0-41 [facility] Comment on above: Performed By: #### C ALEXI MARIE, 72475-3 #### [facility] ([id number]) [address], [address] [place] [address] Bilirubin [Mass/Vol] 0.5 mg/dL Normal 0.3-1.2 [facility] Comment on above: Performed By: #### [place] [address]-1 #### [facility] ([id number]) [address], [address] [place] [address] Calcium [Mass/Vol] 10.0 mg/dL Normal 8.5-10.5 [facility] Comment on above: Performed By: #### [place] [address]-1 #### [facility] ([id number]) [address], [address] [place] [address] Chloride [Moles/Vol] 101 mmol/L Normal 98-109 [facility] Comment on above: Performed By: #### [place], [address]-4 #### [facility] ([id number]) [address], [address] [place] [address] CO2 [Moles/Vol] 29 mmol/L Normal 22-32 [facility] Comment on above: Performed By: #### [place], [address]-7 #### [facility] ([id number]) [address], [address] [place] [address] Creatinine [Mass/Vol] 0.95 mg/dL Normal 0.40-1.00 [facility] Comment on above: Result Comment: METH OD TRACEABLE TO IDMS STANDARD Performed By: #### [place], [address]-9 #### [facility] ([id number]) [address], [address] [place] [address] GFR/1.73 sq M.predicted among non-blacks MDRD (S/P/Bld) [Vol rate/Area] 71 mL/min/{1.73_m2} Normal >59 [facility] Comment on above: Result Comment: Reported eGFR is based on the CKD-EPI 2020 equation that does not use a race coefficient. Performed By: #### [place] [address]-7 #### [facility] ([id number]) [address], [facility] [address] [place] [address] Glucose [Mass/Vol] 113 mg/dL High 65-99 [facility] Comment on above: Performed By: #### [place] [address]-6 #### [facility] ([id number]) [address] [address] Potassium [Moles/Vol] 3.6 mmol/L Normal 3.5-5.0 [facility] Comment on above: Performed By: #### [place] [address]-9 #### [facility] ([id number]) [address] [address] [place] [address] Protein [Mass/Vol] 7.5 g/dL Normal 6.0-8.0 [facility] Comment on above: Performed By: #### [place] [address]-4 #### [facility] ([id number]) [address], [facility] [address] [place] [address] Sodium [Moles/Vol] 141 mmol/L Normal 134-146 [facility] Comment on above: Performed By: #### [place] [address]-2 #### [facility] ([id number]) [address] [address] [place] [address] Urea nitrogen [Mass/Vol] 4 mg/dL Low 5-23 [facility] Comment on above: Performed By: #### [place] [address]-0 #### [facility] ([id number]) [address] [place] [address] DRUG SCREEN, URINEon 025 AMPHETAMINE/METHAMP Negative Normal NEG [facility] Comment on above: Result Comment: AMPH /METH screening cut off = 1000 ng/mL Performed By: #### D HENDRICKSON #### [facility] ([id number]) [address] [place] [address] BARBITURATES Negative Normal NEG [facility] Comment on above: Result Comment: Veronika iturates screening cut off value = 200 ng/mL Performed By: #### D HENDRICKSON #### [facility] ([id number]) [address] [place] [address] BENZODIAZEPINES Positive Abnormal NEG [facility] Comment on above: Result Comment: Conf irmation available upon request. Benzodiazepines screening cut off value = 200 ng/mL Performed By: #### D HENDRICKSON #### [facility] ([id number]) [address] [place] [address] CANNABINOIDS Negative Normal NEG [facility] Comment on above: Result Comment: Malathi abinoids/THC screening cut off value = 50 ng/mL Performed By: #### D HENDRICKSON #### [facility] ([id number]) [address] [place] [address] COCAINE METABOLITE Negative Normal NEG [facility] Comment on above: Result Comment: Coca ine screening cut off value = 300 ng/mL Performed By: #### D HENDRICKSON #### [facility] ([id number]) [address], [address] [place] [address] ECSTASY Negative Normal NEG [facility] Comment on above: Result Comment: Ecst asy screening cut off value = 500 ng/mL This report is intended for use in clinical monitoring or management of patients. Performed By: #### D HENDRICKSON #### [facility] ([id number]) [address], [address] [place] [address] METHADONE Negative Normal NEG [facility] Comment on above: Result Comment: Meth adone screening cut off value = 300 ng/mL. Performed By: #### D HENDRICKSON #### [facility] ([id number]) [address] [place] [address] OPIATES Negative Normal NEG [facility] Comment on above: Result Comment: Opia ellen screening cut off value = 300 ng/mL NOTE: This test is used for the detection of codeine, hydrocodone (>1000 ng/mL), morphine and hydromorphone (>900 ng/mL) in urine. Performed By: #### D HENDRICKSON #### [facility] ([id number]) [address] [address] [place] [address] OXYCODONE Positive Abnormal NEG [facility] Comment on above: Result Comment: Conf irmation available upon request. Oxycodone screening cut off value = 300 ng/mL NOTE: This test is used for the detection of oxycodone and oxymorphone in urine. Performed By: #### D HENDRICKSON #### [facility] ([id number]) [address], [address] [place] [address] PHENCYCLIDINE Negative Normal NEG [facility] Comment on above: Result Comment: Phen cyclidine screening cut off value = 25 ng/mL Performed By: #### D HENDRICKSON #### [facility] ([id number]) [address], [address] [place] [address] HGB A1C (GLYCO-HGB)on 2024 Glucose [Mass/Vol] 126 mg/dL Normal [facility] Comment on above: Performed By: #### C MP, HA1C, 41293-2 #### [facility] ([id number]) [address] [address] [place] [address] HbA1c (Bld) [Mass fraction] 6.0 % High 4.4-5.6 [facility] Comment on above: Result Comment: NOTE ADA Guidelines Result HgbA1c Normal : less than 5.7 % Prediabetes : 5.7 % to 6.4 % Diabetes : > 6.4 % Use with caution in patients with abnormal hemoglobin variants as the half-life of red blood cells and in vivo glycation rates are affected. Performed By: #### [place], [address]-5 #### [facility] ([id number]) [address], [address] [place] [address] Lipid 1996 panelon 5 Cholesterol [Mass/Vol] 165 mg/dL Normal 150-200 [facility] Comment on above: Performed By: #### [place], [address]-8 #### [facility] ([id number]) [address] [facility] [address] [place] [address] Cholesterol in HDL [Mass/Vol] 42 mg/dL Normal >39 [facility] Comment on above: Result Comment: HDL <40 mg/dL - High Risk HDL > or = 40mg/dL- Desirable HDL >60 mg/dL - Negative Risk Performed By: #### [place], [address]-1 #### [facility] ([id number]) [address] [facility] [address] [place] [address] Cholesterol in LDL [Mass/Vol] 67 mg/dL Normal <130 [facility] Comment on above: Result Comment: LDL <100 mg/dL - Desirable LDL >160 mg/dL - High Risk Performed By: #### [place], [address]-8 #### [facility] ([id number]) [address], [address] [place] [address] Cholesterol in VLDL [Mass/Vol] 56 mg/dL High 0-30 [facility] Comment on above: Performed By: #### C ALEXI MARIE, 92322-3 #### [facility] ([id number]) [address], [address] [place] [address] CHOLESTEROL:HDL 3.9 Normal 1.0-5.0 [facility] Comment on above: Performed By: #### C ALEXI MARIE, 54147-0 #### [facility] ([id number]) [address], [address] [place] [address] Triglyceride [Mass/Vol] 281 mg/dL High 27-150 [facility] Comment on above: Performed By: #### C ALEXI MARIE, 82057-6 #### [facility] ([id number]) [address], [address] [place] [address] 36on 09-08-2024 36 Patient called to request refill on Percocet Please see pended medication. [facility] Patient Good # [phone] [facility] 36 Patient called and n eeds a refill on pain medication [facility] Orders Onlyon 09-08-2024 Orders Only [id number] Violet Herrera ie J 1970 F Date Provider Department Center 09/08/2024 79982-XFGGCKBTWOBBSUMMER HOLLOWAY ORTHO MPORTHO No family history on file [facility] Refillon 09-08-2024 Refill [id number] Violet Herrera ie J 1970 F Date Provider Department Center 09/08/2024 803-YAMILETH SAEED MP ORTHO MPORTHO No family history on file [facility] 36on 08-31-2024 36 Already refilled Normal [facility] 36 Patient would like a refill of her pain medication Normal [facility] 36 Patient called to request refill on percocet 5-325 mg. Please see pended medication. [facility] - [place], [place] - [address] [facility] [address] [facility] [place] [address] [place] [address] [id number] [place], [place] - [address] [facility] [address] [facility] [address] Patient Good # [phone] Normal [facility] Orders Onlyon 08-31-2024 Orders Only [id number] Violet Herrera ie J 1970 F Date Provider Department Center 08/31/2024 56730-XQWDFQYSLSXKSUMMER CANELA ORTHO MPORTHO No family history on file [facility] Refillon 08-31-2024 Refill [id number] Violet Herrera 1970 Date Provider Department Center 08/31/2024 LAN HAGEN MP ORTHO MPORTHO No family history on file Reason for Visit and Comments: Med Refill [[id number]] [facility] 36on 08-24-2024 36 Patient called state d she needs a refill of her pain medications Normal [facility] Orders Onlyon 08-24-2024 Orders Only [id number] Violet Herrera 1970 Date Provider Department Center 08/24/2024 39820-OGPTIHJCSRHNSUMMER CANELA ORTHO MPORTHO No family history on file [facility] Follow-Upon 08-17-2024 Follow-Up [id number] Violet Herrera 1970 Date Provider Department Center 08/17/2024 JOSSELINE NGUYEN MP ORTHO MPORTHO No family history on file Level of Service:08515 PA OFFICE/OUTPATIENT ESTABLISHED MOD MDM 30 MIN Reason for Visit and Comments: New Patient [632] Pain [136] Normal [facility] Office Visiton 08-17-2024 Follow-up visit [id number] Violet Herrera ie J 1970 F Date Provider Department Center 08/17/2024 LAN HAGEN MP ORTHO MPORTHO No family history on file Level of Service:48572 PA POSTOP FOLLOW UP VISIT RELATED TO ORIGINAL PX Reason for Visit and Comments: Pain [136] Post-op [483] Normal [facility] Orders Onlyon 08-17-2024 Orders Only [id number] Violet Herrera ie J 1970 F Date Provider Department Center 08/17/2024 71842-NHDZEIFYHCGHPONCHO HOLLOWAY*MP ORTHO MPORTHO No family history on file Normal [facility] Heart and Vascular Office/Cl inic Noteon 08-13-2024 [...] Metatarsal (11/21/2022), Esophagogastroduodenosc (more content not included)... [facility] Comment on above: Result Comment: Elec tronically Signed By: Anoop WALSH, Kehinde Thibodeaux\.br\Date and Time Signed: 08/13/24 13:28 EST 36on 08-10-2024 36 Patient called and checked the status of her medication. [employer] informed her Dr. Rubi is not in the office and will get to it as soon as possible. [facility] 36 Already filled [facility] 36 Patient called requesting refill. Patient called to request refill on Perocoet Please see pended medication. [facility] Patient Good # [phone] [facility] 36 Patient called again today stating that the pharmacy has not received a script for the Percocet 5-325 mg. Please advise. Thank you. [facility] Orders Onlyon 08-10-2024 Orders Only [id number] Violet Herrera 1970 F Date Provider Department Center 08/10/202490175-HGPXMIPSUOUMAR CARDONA [facility] SURG Second Fl No family history on file [facility] 36on 08-08-2024 36 Order was put in and pharmacy was changed, waiting for approval [facility] Orders Onlyon 08-08-2024 Orders Only [id number] Violet Herrera J 1970 F Date Provider Department Center 08/08/2024 803-CHRISTOPHEYAMILETH CYNTHIA ORTHO MPORTHO No family history on file [facility] 36on 08-07-2024 36 Patient states she n eeds her [facility] [place] [facility] [place] [address] Please contact patient with any problems or concerns at [phone] [facility] 36 Patient called to request refill on Percocet Please see pended medication. [facility] [place], [place] - [address] [facility] [address] [facility] [address] [facility] [address] Patient Good # [phone] [facility] IGP,APTIMA HPV,AGE GDLNon AGE GDLN ACOG TESTING Note . [facility] Comment on above: TESTS RESULT FLAG UN ITS REF RANGE LAB Clinician Provided Cytology Information Source.............Vagina No. of containers..01 ThinPrep Vial Age Algo ACOG Ellen... 30-65 01 FLAG LEGEND: L-Low Normal,H-High Normal,LL-Alert Low,HH-Alert High <-Panic Low,>-Panic High,A-Abnormal,AA-Critical Abnormal Performed at: 01 =G [address] [place] [address] Estelle Mckeon MD, HPV APTIMA Negative Negative [facility] Comment on above: This nucleic acid am plification test detects fourteen high- risk HPV types (16,18,31,33,35,39,45,51,52,56,58,59,66,68) without differentiation. Performed at: =[address] [id number] Cost Clerk: Estelle Mckeon MD, Phone: [phone] Performed at: [address], [place] [id number] Cost Clerk: Estelle Mckeon MD, Phone: [phone] IGP, APTIMA HPV, RFX 16/18,45 Note . [facility] Comment on above: TESTS RESULT FLAG UN ITS REF RANGE LAB DIAGNOSIS: 02 NEGATIVE FOR INTRAEPITHELIAL LESION OR MALIGNANCY. Specimen adequacy: 02 Satisfactory for evaluation. Performed by: Manoj Vasquez Diet Aid (ASCP) . 02 Note: Note 02 The [...] <-Panic Low,>-Panic High,A-Abnormal,AA-Critical Abnormal Performed at: 02 [facility] [address] [place] [address] Estelle Mckeon MD, [facility] Anesthesiaon 08-03-2024 Anesthesia [id number] Violet Herrera 1970 F Date Provider Department Center 08/03/2024 44040-QTLFTGISELE [facility] No family history on file Normal [facility] HPon 08-03-2024 History Of Present Illness Rock [...] Heart valve disease, Hyperlipidemia, Hypertension, Myocardial infarction ([facility]/HCC), and Sleep apnea. Surgical History She has [...] submuscular ulnar nerve transposition left elbow Normal [facility] NURSNOTEon 08-03-2024 LUIS EFLIPE Family at bedside RN reviewed discharge and gave copy. Normal [facility] OPNOTEon 08-03-2024 OPNOTE Operative Note Patient: Rock Herrera Date of Surgery: 08/03/2024 : 1970 Pre-operative Diagnosis: 1. Recurrent Cubital Tunnel Syndrome (ulnar neuropathy) left Elbow, 2. Recurrent carpal tunnel syndrome left hand Post-operative Diagnosis: same Operation: Submuscular Transposition of Ulnar Nerve left Elbow (71921) Carpal Tunnel Release left Hand (75244) Surgeon: Lan Rubi MD Chief Relay Tester: Radha Whitley MD Staff: State Editor: Luca Cabrera RN; Champ Sheehan RN Relief [...] to the level of the arcade of [place]. We carefully released the ulnar nerve through [...] and the flexor origin is repaired with [id number] sutures of 2-0 Vicryl. The fasci (more content not included)... Normal [facility] POCT GLUCOSE METER UNSOLICIT ED RESULTSon 08-03-2024 Glucose [Mass/Vol] 132 mg/dL High 70-105 [facility] Comment on above: Order Comment: Waive d Testing in the ED is performed under the ED CLIA certificate #[id number]. 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 Do not wear perfume, make-up, nail slovak, or lotions on the day of your [...] need to make any changes, please call [phone]. Notify your surgeon if you develop any illness such as a cold, cough, fever, sore throat or vomiting between now and your surgery. Thank you for entrusting us with your care. [facility] Surgical Services Team Normal [facility] Abstracton 07-23-2024 Abstract [id number] Violet Herrera 1970 F Date Provider Department Center 07/23/2024 Aram3-YAMILETH SAEED MP No family history on file [facility] 36on 07-21-2024 36 Below number is the wrong number, the number [phone] is out of order, and spoke with patient and she gave me the same number, called number it rang one time and the message: the number you dialed is not in service at this time and hung up. [facility] 36 Attempted to call keshia jerez to get this report, they sent me to a new number [phone], and the report will be sent over. [facility] 36 Lvm this morning to have it faxed [facility] 36on 07-20-2024 [address] Danica Sanchez to get the office to fax over the EMG results so we have it for the peer to peer [facility] Telephoneon 07-20-2024 Telephone [id number] Violet Herrera 1970 F Date Provider Department Center 07/20/2024 803-YAMILETH SAEED MP ORTHO MPORTHO No family history on file [facility] CBC AND AUTO DIFFon 07-07-20 24 ABSOLUTE BASOPHIL 0.0 X10E9/L Normal 0.0-0.2 [facility] Comment on above: Performed By: #### C BCA, CMP, 3040-3, 89869-8, 67076-2 ####[facility] ([id number])[address] [place] [address] ABSOLUTE NEUTROPHIL 9.9 X10E9/L High 1.5-6.6 [facility] Comment on above: Performed By: #### C BCA, CMP, 3040-3, 70649-7, 42085-3 ####[facility] ([id number])[address] [place] [address] Basophils/100 WBC (Bld) 0.3 % Normal [facility] Comment on above: Performed By: #### C BCA, CMP, 3040-3, 79149-4, 02327-4 ####[facility] ([id number])[address] [place] [address] 74542 Eosinophils (Bld) [#/Vol] 0.2 10*3/uL Normal 0.0-0.4 [facility] Comment on above: Performed By: #### C BCA, CMP, 3040-3, 55801-3, 57015-0 ####[facility] ([id number])[address] [place] [address]147 Eosinophils/100 WBC (Bld) 1.6 % Normal [facility] Comment on above: Performed By: #### C BCA, CMP, 3040-3, 03241-2, 96710-0 ####[facility] ([id number])[address] [place] [address] Erythrocyte distribution width (RBC) [Ratio] 14.9 % Normal 11.5-15.0 [facility] Comment on above: Performed By: #### C BCA, CMP, 3040-3, 61899-2, 24526-2 ####[facility] ([id number])[address] [place] [address] Hematocrit (Bld) [Volume fraction] 42.7 % Normal 35-47 [facility] Comment on above: Performed By: #### C BCA, CMP, 3040-3, 61375-1, 48763-0 ####[facility] ([id number])[address] [place] [address]279 Hemoglobin (Bld) [Mass/Vol] 14.6 g/dL Normal 11.7-15.5 [facility] Comment on above: Performed By: #### C BCA, CMP, 3040-3, 06251-6, 51698-8 ####[facility] ([id number])[address] [place] [address]155 Lymphocytes (Bld) [#/Vol] 3.7 10*3/uL High 1.0-3.5 [facility] Comment on above: Performed By: #### C BCA, CMP, 3040-3, 52983-0, 79283-1 ####[facility] ([id number])[address] [place] [address]1260 Lymphocytes/100 WBC (Bld) 25.3 % Normal [facility] Comment on above: Performed By: #### C BCA, CMP, 3040-3, 32462-5, 84907-9 ####[facility] ([id number])[address] [place] [address] 45364 MCH (RBC) [Entitic mass] 33.6 pg Normal 27-34 [facility] Comment on above: Performed By: #### C BCA, CMP, 3040-3, 15520-1, 66720-2 ####[facility] ([id number])[address] [place] [address] 82537 MCHC (RBC) [Mass/Vol] 34.3 g/dL Normal 32-36 [facility] Comment on above: Performed By: #### C BCA, CMP, 3040-3, 55087-1, 34018-3 ####[facility] ([id number])[address] [place] [address]130 MCV (RBC) [Entitic vol] 98 fL Normal 80-100 [facility] Comment on above: Performed By: #### C BCA, CMP, 3040-3, 79570-9, 88823-1 ####[facility] ([id number])[address] [place] [address] Monocytes (Bld) [#/Vol] 0.9 10*3/uL Normal 0-0.9 [facility] Comment on above: Performed By: #### C BCA, CMP, 3040-3, 73861-5, 39290-0 ####[facility] ([id number])[address] [place] [address] 70006 Monocytes/100 WBC (Bld) 5.8 % Normal [facility] Comment on above: Performed By: #### C BCA, CMP, 3040-3, 28064-9, 57313-3 ####[facility] ([id number])[address] [place] [address] 85845 Neutrophils/100 WBC (Bld) 67.0 % Normal [facility] Comment on above: Performed By: #### Veronica BCA, CMP, 3040-3, 12446-6, 86166-9 ####[facility] ([id number])[address] [place] [address] 27809 Platelet mean volume (Bld) [Entitic vol] 8.5 fL Normal 7-12 [facility] Comment on above: Performed By: #### Veronica BCA, CMP, 3040-3, 99440-8, 23513-8 ####[facility] ([id number])[address] [place] [address] 90752 Platelets (Bld) [#/Vol] 228 10*3/uL Normal 150-450 [facility] Comment on above: Performed By: #### Veronica BCA, CMP, 3040-3, 25168-9, 27810-1 ####[facility] ([id number])[address] [place] [address] 05723 RBC COUNT 4.35 X10E12/L Normal 3.80-5.20 [facility] Comment on above: Performed By: #### Veronica BCA, CMP, 3040-3, 71595-7, 20246-8 ####[facility] ([id number])[address] [place] [address] 11774 WBC (Bld) [#/Vol] 14.8 10*3/uL High 4.0-11.0 [facility] Comment on above: Performed By: #### Veronica BCA, CMP, 3040-3, 43767-4, 94658-1 ####[facility] ([id number])[address] [place] [address] [place] [address] COMPREHENSIVE METABOLIC PANE Bulmaro 07-07-2024 Albumin [Mass/Vol] 3.9 g/dL Normal 3.2-5.3 [facility] Comment on above: Performed By: #### C BCA, CMP, 3040-3, 94299-9, 88827-5 ####[facility] ([id number])[address] [place] [address] 72145 ALP [Catalytic activity/Vol] 104 U/L Normal 39-130 [facility] Comment on above: Performed By: #### C BCA, CMP, 3040-3, 02323-3, 55637-4 ####[facility] ([id number])[address] [place] [address] 14596 ALT [Catalytic activity/Vol] 27 U/L Normal 0-31 [facility] Comment on above: Performed By: #### C BCA, CMP, 3040-3, 77752-8, 89273-2 ####[facility] ([id number])[address] [place] [address] 94074 Anion gap [Moles/Vol] 10 mmol/L Normal 5-15 [facility] Comment on above: Performed By: #### C BCA, CMP, 3040-3, 14446-6, 99304-0 ####[facility] ([id number])[address] [place] [address] 40571 AST [Catalytic activity/Vol] 19 U/L Normal 0-41 [facility] Comment on above: Performed By: #### C BCA, CMP, 3040-3, 79153-5, 96485-3 ####[facility] ([id number])[address] [place] [address] 02077 Bilirubin [Mass/Vol] 0.6 mg/dL Normal 0.3-1.2 [facility] Comment on above: Performed By: #### C BCA, CMP, 3040-3, 11684-8, 49796-9 ####[facility] ([id number])[address] [place] [address] 73987 Calcium [Mass/Vol] 9.7 mg/dL Normal 8.5-10.5 [facility] Comment on above: Performed By: #### C BCA, CMP, 3040-3, 37832-3, 76494-5 ####[facility] ([id number])[address] [place] [address] 51725 Chloride [Moles/Vol] 101 mmol/L Normal 98-109 [facility] Comment on above: Performed By: #### C BCA, CMP, 3040-3, 55547-1, 67582-3 ####[facility] ([id number])[address] [place] [address] 03594 CO2 [Moles/Vol] 26 mmol/L Normal 22-32 [facility] Comment on above: Performed By: #### C BCA, CMP, 3040-3, 71476-2, 33394-8 ####[facility] ([id number])[address] [place] [address] 26718 Creatinine [Mass/Vol] 0.95 mg/dL Normal 0.40-1.00 [facility] Comment on above: Result Comment: METH OD TRACEABLE TO IDMS STANDARD Performed By: #### C BCA, CMP, 3040-3, 67293-5, 43636-7 ####[facility] ([id number])[address] [place] [address] 68558 GFR/1.73 sq M.predicted among non-blacks MDRD (S/P/Bld) [Vol rate/Area] 72 mL/min/{1.73_m2} Normal >59 [facility] Comment on above: Result Comment: Reported eGFR is based on the CKD-EPI 2020 equation that does not use a race coefficient. Performed By: #### C BCA, CMP, 3040-3, 73072-3, 49268-4 ####[facility] ([id number])[address] [place] [address] 21641 Glucose [Mass/Vol] 152 mg/dL High 65-99 [facility] Comment on above: Performed By: #### C BCA, CMP, 3040-3, 36519-8, 86026-7 ####[facility] ([id number])[address] [place] [address] 46801 Potassium [Moles/Vol] 3.8 mmol/L Normal 3.5-5.0 [facility] Comment on above: Performed By: #### C BCA, CMP, 3040-3, 19366-4, 13609-0 ####[facility] ([id number])[address] [place] [address] 63276 Protein [Mass/Vol] 7.3 g/dL Normal 6.0-8.0 [facility] Comment on above: Performed By: #### C BCA, CMP, 3040-3, 58897-7, 02479-9 ####[facility] ([id number])[address] [place] [address] 94194 Sodium [Moles/Vol] 137 mmol/L Normal 134-146 [facility] Comment on above: Performed By: #### C BCA, CMP, 3040-3, 95566-3, 75843-5 ####[facility] ([id number])[address] [place] [address] 55474 Urea nitrogen [Mass/Vol] 9 mg/dL Normal 5-23 [facility] Comment on above: Performed By: #### C BCA, CMP, 3040-3, 68924-5, 64603-8 ####[facility] ([id number])[address] [place] [address] ABDOMEN AND PELVIS W CONT on [...] Varghese MD on 07/07/2024 7:42 PM Normal [facility] Fibrin D-dimer DDU (PPP) [Ma ss/Vol]on 07-07-2024 D DIMER 279 ng/mL DDU High <255 [facility] Comment on above: Result Comment: Results >=255ng/mL [...] Performed By: #### C BERONICA [place], 3040-3, 89527-9, 16061-0 ####[facility] ([id number])[address] [place] [address] 47186 LIPASEon 07-07-2024 Lipase [Catalytic activity/Vol] 23 U/L Normal 17-40 [facility] Comment on above: Performed By: #### C BERONICA [place], 3040-3, 89594-1, 95198-9 ####[facility] ([id number])[address] [place] [address] 05447 Troponin I.cardiac High sens itivity method [Mass/Vol]on 07-07-2024 1 HOUR TROP I, HIGH SENSITIVITY 3 ng/L Normal <16 [facility] Comment on above: Performed By: #### 8 9579-7 ####[facility] ([id number])[address] [place] [address] 43932 TROPONIN I, HIGH SENSITIVITY 3 ng/L Normal <16 [facility] Comment on above: Performed By: #### C BERONICA WASHINGTON, 3040-3, 03438-2, 41975-0 ####[facility] ([id number])[address] [place] [address] 98190 URINE CULTUREon 07-07-2024 Bacteria identified Cx Nom [...] <=1 F TRIMETH/SULFAMETHOXAZOLE S <=1/19 F Susceptible [facility] Comment on above: Performed By: #### 6 30-4 ####[facility] ([id number])[address] [place] [address], [address] [place] [address] URN MACROSCOPIC NURon 2023 BILIRUBIN LISA Negative Normal NEG [facility] Comment on above: Performed By: #### N UM ####[facility] ([id number])[address] [place] [address], [place] [address] BLOOD/HGB LISA Trace Abnormal NEG [facility] Comment on above: Performed By: #### N UM ####[facility] ([id number])[address] [place] [address] [place] [address] GLUCOSE LISA Negative Normal NEG [facility] Comment on above: Performed By: #### N UM ####[facility] ([id number])[address] [place] [address] [place] [address] KETONES LISA Negative Normal NEG [facility] Comment on above: Performed By: #### N UM ####[facility] ([id number])[address] [place] [address] 39077 LEUKOCYTE ESTERASE LISA Negative Normal NEG [facility] Comment on above: Performed By: #### N UM ####[facility] ([id number])[address] [place] [address] [place] [address] NITRITE LISA Positive Abnormal NEG [facility] Comment on above: Performed By: #### N UM ####[facility] ([id number])[address] [place] [address] [place] [address] PH LISA 5.0 Normal 5.0-8.5 [facility] Comment on above: Performed By: #### N UM ####[facility] ([id number])[address] [place] [address] 83396 PROTEIN LISA 30 mg/dL Abnormal NEG [facility] Comment on above: Performed By: #### N UM ####[facility] ([id number])[address] [place] [address] 50497 SPECIFIC GRAVITY LISA <=1.005 Normal 1.003-1 .03 5 [facility] Comment on above: Performed By: #### N UM ####[facility] ([id number])[address] [place] [address] 83790 UROBILINOGEN LISA 0.2 eu/dL Normal <1.1 [facility] Comment on above: Performed By: #### N UM ####[facility] ([id number])[address] [place] [address] 93732 XR CHEST 1 VWon 07-07-2024 XR CHEST 1 VW XR CHEST 1 VW Single view chest XR CHEST 1 VW History: Chest pain Comparison: May 18, 2022 Impression: * No consolidation or pleural fluid. No acute findings. Finalized by Alex Varghese MD on 07/07/2024 8:09 PM Normal [facility] XR KNEE LT 3 VWSon 4 XR [...] Khan MD on 06/28/2024 2:19 PM Normal [facility] Office Visiton 06-16-2024 Follow-up visit [id number] Violet Herrera 1970 F Date Provider Department Center 06/16/2024 [facility] ORTHO MPORTHO No family history on file Level of Service:00727 PA OFFICE/OUTPATIENT NEW LOW MDM 30 MINUTES Reason for Visit and Comments: Pain [136] New Patient [632] Normal [facility] COMPLETE BLOOD COUNTon 05-04 Erythrocyte distribution width (RBC) [Ratio] 14.1 % Normal 11.5-15.0 [facility] Comment on above: Performed By: #### 1 5205-8, CBC, 1987-12, 3016-3, 33505-6, 53515-1, 60098-6 #### [facility] ([id number]) [address], [address] [place] [address] Hematocrit (Bld) [Volume fraction] 42.9 % Normal 35-47 [facility] Comment on above: Performed By: #### 1 5205-8, CBC, 1987-12, 3016-3, 38019-5, 51158-1, 83726-9 #### [facility] ([id number]) [address], [address] [place] [address] Hemoglobin (Bld) [Mass/Vol] 14.8 g/dL Normal 11.7-15.5 [facility] Comment on above: Performed By: #### 1 5205-8, CBC, 1987-12, 3015-3, 22598-2, 97964-1, 31945-8 #### [facility] ([id number]) [address], [address] [place] [address] MCH (RBC) [Entitic mass] 34.1 pg High 27-34 [facility] Comment on above: Performed By: #### 1 5205-8, CBC, 1987-12, 3015-3, 81364-0, 01303-3, 40768-1 #### [facility] ([id number]) [address], [address] [place] [address] MCHC (RBC) [Mass/Vol] 34.6 g/dL Normal 32-36 [facility] Comment on above: Performed By: #### 1 5205-8, CBC, 1987-12, 3016-3, 29500-1, 66681-4, 66202-5 #### [facility] ([id number]) [address], [address] [place] [address] MCV (RBC) [Entitic vol] 99 fL Normal 80-100 [facility] Comment on above: Performed By: #### 1 5205-8, CBC, 1987-12, 3016-3, 04005-3, 51610-4, 04158-4 #### [facility] ([id number]) [address], [address] [place] [address] Platelet mean volume (Bld) [Entitic vol] 9.1 fL Normal 7-12 [facility] Comment on above: Performed By: #### 1 5205-8, CBC, 1987-12, 3016-3, 51777-1, 80601-5, 25561-9 #### [facility] ([id number]) [address], [address] [place] [address] Platelets (Bld) [#/Vol] 201 10*3/uL Normal 150-450 [facility] Comment on above: Performed By: #### 1 5205-8, CBC, 1987-12, 3016-3, 91849-8, 13750-4, 69300-1 #### [facility] ([id number]) [address], [address] [place] [address] RBC COUNT 4.36 X10E12/L Normal 3.80-5.20 [facility] Comment on above: Performed By: #### 1 5205-8, CBC, 1987-12, 3016-3, 79713-7, 70946-5, 65432-0 #### [facility] ([id number]) [address], [address] [place] [address] WBC (Bld) [#/Vol] 13.4 10*3/uL High 4.0-11.0 [facility] Comment on above: Performed By: #### 1 5205-8, CBC, 1987-12, 3016-3, 02890-7, 28265-4, 20903-0 #### [facility] ([id number]) [address], [address] [place] [address] CRP [Mass/Vol]on 05-04-2024 C REACTIVE PROTEIN 0.3 mg/dL Normal 0.000-0.7 4 4 [facility] Comment on above: Performed By: #### 1 5205-8, CBC, 1987-12, 3015-3, 36314-4, 33787-8, 40158-6 #### [facility] ([id number]) [address], [address] [place] [address] ESR Photometric method (Bld) [Velocity]on 05-04-2024 ESR, ERYTHROCYTE SEDIMENTATION RATE 6 mm/h Normal 0-30 [facility] Comment on above: Performed By: #### 1 5205-8, CBC, 1987-12, 3015-10, 39824-4, 18759-8, 80517-4 ####[facility] ([id number])[address], [address] [place] [address] Nuclear Ab IA Ql (S)on 05-04 JAIME Screen w/reflex Negative Normal NEG [facility] Comment on above: Result Comment: Testing performed using multiplex flow immunoassay. Eleven different antigens associated with systemic autoimmune diseases (dsDNA,Sm,Sm/SAFETY SPECIALIST,SAFETY SPECIALIST,Chromatin, SSA,SSB,Yolanda-1,Scl70,Ribo P,Centromere B) are included in this screening test. Performed By: #### 1 5205-8, CBC, 1987-12, 3015-3, 91081-4, 67583-5, 75955-1 ####[facility] ([id number])[address] [place] [address] Rheumatoid factor Nephelomet ry Qn (S)on 05-04-2024 RHEUMATOID FACTOR 22 IU/mL High <20 [facility] Comment on above: Performed By: #### 1 5205-8, CBC, 1987-12, 3015-3, 38306-6, 12513-5, 98566-4 #### [facility] ([id number]) [address], [address] [place] [address] TSH Qnon 05-04-2024 TSH 1.48 uIU/mL Normal 0.49-4.67 [facility] Comment on above: Performed By: #### 1 5205-8, CBC, 1988-5, 3016-3, 34220-0, 70609-5, 64300-9 ####[facility] ([id number])[address], [place] [address] MR KNEE LT WO CONTon 024 MR [...] Oumar Jacobo DO on 03/31/2024 8:03 AM I, Jean-Pierre Silvestre MD have personally reviewed the image(s) and agree with and/or edited the report Finalized by Jean-Pierre Silvestre MD on 03/31/2024 10:49 AM Normal [facility] BASIC METABOLIC PANLon 02-25 Anion gap [Moles/Vol] 10 mmol/L Normal 5-15 [facility] Comment on above: Performed By: #### C BCA, BMP #### [facility] ([id number]) [address], [address] [place] [address] Calcium [Mass/Vol] 10.1 mg/dL Normal 8.5-10.5 [facility] Comment on above: Performed By: #### C BCA, BMP #### [facility] ([id number]) [address], [address] [place] [address] Chloride [Moles/Vol] 102 mmol/L Normal 98-109 [facility] Comment on above: Performed By: #### C BCA, BMP #### [facility] ([id number]) [address], [address] [place] [address] CO2 [Moles/Vol] 28 mmol/L Normal 22-32 [facility] Comment on above: Performed By: #### C BCA, BMP #### [facility] ([id number]) [address], [address] [place] [address] Creatinine [Mass/Vol] 0.83 mg/dL Normal 0.40-1.00 [facility] Comment on above: Result Comment: METH OD TRACEABLE TO IDMS STANDARD Performed By: #### C FELIX, BMP #### [facility] ([id number]) [address] [address] [place] [address] GFR/1.73 sq M.predicted among non-blacks MDRD (S/P/Bld) [Vol rate/Area] 84 mL/min/{1.73_m2} Normal >59 [facility] Comment on above: Result Comment: Reported eGFR is based on the CKD-EPI 2020 equation that does not use a race coefficient. Performed By: #### C FELIX, BMP #### [facility] ([id number]) [address] [facility] [address] [place] [address] Glucose [Mass/Vol] 82 mg/dL Normal 65-99 [facility] Comment on above: Performed By: #### C FELIX, BMP #### [facility] ([id number]) [address] [address] [place] [address] Potassium [Moles/Vol] 4.1 mmol/L Normal 3.5-5.0 [facility] Comment on above: Performed By: #### C FELIX, BMP #### [facility] ([id number]) [address] [place] [address] Sodium [Moles/Vol] 140 mmol/L Normal 134-146 [facility] Comment on above: Performed By: #### C BCA, BMP #### [facility] ([id number]) [address] [address] [place] [address] Urea nitrogen [Mass/Vol] 7 mg/dL Normal 5-23 [facility] Comment on above: Performed By: #### C BCA, BMP #### [facility] ([id number]) [address], [address] [place] [address] CBC AND AUTO DIFFon 07-10-20 24 ABSOLUTE BASOPHIL 0.2 X10E9/L Normal 0.0-0.2 [facility] Comment on above: Performed By: #### C BCA, BMP #### [facility] ([id number]) [address], [address] [place] [address] Basophils/100 WBC (Bld) 1.0 % Normal P [facility] Comment on above: Performed By: #### C BCA, BMP #### [facility] ([id number]) [address], [address] [place] [address] Erythrocyte distribution width (RBC) [Ratio] 15.5 % High 11.5-15.0 [facility] Comment on above: Performed By: #### C FELIX, BMP #### [facility] ([id number]) [address], [address] [place] [address] Hematocrit (Bld) [Volume fraction] 42.7 % Normal 35-47 [facility] Comment on above: Performed By: #### C BCA, BMP #### [facility] ([id number]) [address] [place] [address] Hemoglobin (Bld) [Mass/Vol] 14.5 g/dL Normal 11.7-15.5 [facility] Comment on above: Performed By: #### C BCA, BMP #### [facility] ([id number]) [address] [place] [address] Lymphocytes (Bld) [#/Vol] 3.3 10*3/uL Normal 1.0-3.5 [facility] Comment on above: Performed By: #### C BCA, BMP #### [facility] ([id number]) [address], [address] [place] [address] Lymphocytes/100 WBC (Bld) 19.0 % Normal [facility] Comment on above: Performed By: #### C BCA, BMP #### [facility] ([id number]) [address], [address] [place] [address] MCH (RBC) [Entitic mass] 33.0 pg Normal 27-34 [facility] Comment on above: Performed By: #### C FELIX, BMP #### [facility] ([id number]) [address], [address] [place] [address] MCHC (RBC) [Mass/Vol] 34.0 g/dL Normal 32-36 [facility] Comment on above: Performed By: #### C FELIX, BMP #### [facility] ([id number]) [address], [facility] [address] [place] [address] MCV (RBC) [Entitic vol] 97 fL Normal 80-100 [facility] Comment on above: Performed By: #### C FELIX, BMP #### [facility] ([id number]) [address] [address] [place] [address] Monocytes (Bld) [#/Vol] 0.7 10*3/uL Normal 0-0.9 [facility] Comment on above: Performed By: #### C FELIX, BMP #### [facility] ([id number]) [address] [facility] [address] [place] [address] Monocytes/100 WBC (Bld) 4.0 % Normal [facility] Comment on above: Performed By: #### C FELIX, BMP #### [facility] ([id number]) [address], [facility] [address] [place] [address] Neutrophils (Bld) [#/Vol] 13.4 10*3/uL High 1.5-6.6 [facility] Comment on above: Performed By: #### C FELIX, BMP #### [facility] ([id number]) [address] [address] [place] [address] Platelet mean volume (Bld) [Entitic vol] 9.1 fL Normal 7-12 [facility] Comment on above: Performed By: #### Veronica WASHINGTON, BMP #### [facility] ([id number]) [address], [address] [place] [address] Platelets (Bld) [#/Vol] 198 10*3/uL Normal 150-450 [facility] Comment on above: Performed By: #### Veronica BCA, BMP #### [facility] ([id number]) [address], [address] [place] [address] RBC COUNT 4.40 X10E12/L Normal 3.80-5.20 [facility] Comment on above: Performed By: #### C FELIX, BMP #### [facility] ([id number]) [address], [address] [place] [address] RBC morphology finding Nom (Bld) NORMAL Normal [facility] Comment on above: Performed By: #### Veronica WASHINGTON, BMP #### [facility] ([id number]) [address], [address] [place] [address] SEG NEUTROPHIL 76.0 % Normal [facility] Comment on above: Performed By: #### Veronica WASHINGTON, BMP #### [facility] ([id number]) [address], [address] [place] [address] WBC (Bld) [#/Vol] 17.6 10*3/uL High 4.0-11.0 [facility] Comment on above: Performed By: #### Veronica WASHINGTON, BMP #### [facility] ([id number]) [address], [address] [place] [address] XR KNEE LT 3 VWSon 4 XR [...] Joseph MD on 01/31/2024 6:38 PM Normal [facility] MR ELBOW LT WO CONTon 2023 MR [...] Muir MD on 01/27/2024 11:30 AM Normal [facility] CT ABDOMEN AND PELVIS W CONT on [...] Herman MD on 01/24/2024 6:29 AM Normal [facility] CREATININEon 01-20-2024 Creatinine [Mass/Vol] 0.94 mg/dL Normal 0.40-1.00 [facility] Comment on above: Result Comment: METH OD TRACEABLE TO IDMS STANDARD Performed By: #### C RT #### [facility] ([id number]) [address] [place] [address] GFR/1.73 sq M.predicted among non-blacks MDRD (S/P/Bld) [Vol rate/Area] 73 mL/min/{1.73_m2} Normal >59 [facility] Comment on above: Result Comment: Reported eGFR is based on the CKD-EPI 2020 equation that does not use a race coefficient. Performed By: #### C RT #### [facility] ([id number]) [address], [address] [place] [address] CHEMISTRYOrdered By: Lab ROP User on 12-11-2023 Glucose [Mass/Vol] 154 mg/dL High 55 - 99 mg/dL [facility] [place] Sub[place] POC Device SN [id number] Invalid Interpretation Code [facility] [place] Subsection POC User ID [id number] 1 Invalid Interpretation Code [facility] [place] Subsection POC Username FREDIS GRIFFIN Invalid Interpretation Code [facility] [place] Subsection Surgical PathologyOrdered By : Felicita Carpenter on 01-17-2023 [facility] XR KNEE LT 4V or >on [...] by: LILIANA NDIAYE Date: 2022-11-29 16:[address] [facility] CHEMISTRYOrdered By: Lab ROP User on 11-21-2022 Glucose [Mass/Vol] 91 mg/dL Normal 55 - 99 mg/dL [facility] [place] Subsection Comment on above: Result Comment: Dahlia sneha Meter POC Device SN [id number] Invalid Interpretation Code [facility] [place] Subsection POC User ID [id number] Invalid Interpretation Code [facility] [place] Subsection POC Username BILLY HOGUE Invalid Interpretation Code [facility] [place] [...] 1.1 mg/dL Normal 0.5 - 1.3 mg/dL [facility] [place] Remisol GFR/1.73 sq M.predicted among blacks MDRD (S/P/Bld) [Vol rate/Area] mL/min/1.73 m2 Normal >=59mL/min /1.73 m2 [facility] [place] GFR/1.73 sq M.predicted among non-blacks MDRD (S/P/Bld) [Vol rate/Area] 52 mL/min/1.73 m2 Low >=59mL/min /1.73 m2 [facility] [place] [...] 39.9 % Normal 34.0 - 46.0 % FT HemeAutoSS Hemoglobin (Bld) [Mass/Vol] 12.8 g/dL Normal [...] AM) Normal Negative [facility] UA Auto SS [facility].plasma/[facility].R BC (Bld) [Mass ratio] 0-3 /HPF Normal 0-3/HPF [facility] UA Au to SS Nitrite Ql (U) Negative (10/20/22 11:40 AM) Normal Negative [facility] UA Auto SS pH (U) 6.0 *NA* (10/20/22 11:40 AM) Invalid Interpretation Code 5.0 - 9.0 [facility] UA Auto SS Protein (U) [Mass/Vol] Negative (10/20/22 11:40 AM) Normal Negative [facility] [place] Auto SS Specific gravity (U) [Rel density] <=1.005 *NA* (10/20/22 11:40 AM) Invalid Interpretation Code 1.005 - 1.030 [facility] [place]A Auto SS UA Spec Desc Clean Catch (10/20/22 11:40 AM) Normal [facility] [place] UA Auto SS Urobilinogen Qn (U) 0.4491881 {Gareth'U}/dL Normal 0.0 - 1.0 EU/dL [facility] [place]A Auto SS WBC Auto Ql (U) 1+ *ABN* (10/20/22 11:40 AM) Invalid Interpretation Code Negative [facility] [place] Auto SS WBC LM.HPF (Urine sed) [#/Area] 0-5 /HPF Normal 0-5/HPF [facility] [place]A Auto SS MG MAMM DIAGNOSTIC 3D TAJ CA Don 09-10-2022 MG MAMM DIAGNOSTIC 3D TAJ CAD Patient: ROCK HERRERA Exam Date: 09/10/2022 : 1970 Gender:F Ordering : DR DAVID VILLALOBOS . Admission #: [id number] Family : Order #: [id number] CLICK HERE TO VIEW EXAM RADIOLOGY REPORT [...] ovarian cancer at age 60. LOCATION: [facility] BREAST COMPOSITION: Heterogeneously dense,which may obscure [...] Roach M.D. on 09/10/2022 at 13:[address] [facility] US BREAST LEFT LIMITEDon US BREAST LEFT LIMITED Patient: ROCK HERRERA Exam Date: 09/10/2022 : 1970 Gender:F Ordering : DR DAVID VILLALOBOS . Admission #: [id number] Family : Order #: [id number] CLICK HERE TO VIEW EXAM RADIOLOGY REPORT [...] ovarian cancer at age 60. LOCATION: [facility] BREAST COMPOSITION: Heterogeneously dense,which may obscure [...] Roach M.D. on 09/10/2022 at 13:[address] [facility] XR DEXA BONE DENSITYon 08-06 XR [...] DELORES ROACH Date: 2022-08-06 14:11 Normal [facility] XR CHEST 2 Von 07-04-2022 XR [...] NICOLE ROJAS Date: 2022-07-04 14:11 Normal [facility] XR KNEE RT 4V or >on [...] NICOLE ROJAS Date: 2022-07-03 18:12 Normal [facility] CBC AUTO DIFFon 04-30-2022 BASO # 0.1 103/ul Normal 0.0-0.[address] [facility] Comment on above: Performed By: #### C BC ####[facility] [address] [place] [address]Dr. Soo Taylor Basophils/100 WBC (Bld) 0.7 % Normal 0.2-2.0 [facility] Comment on above: Performed By: #### C BC ####[facility] [address] [place], [place] [address]Dr. Soo Taylor EO # 0.1 103/ul Normal 0.0-0.[address] [facility] Comment on above: Performed By: #### C BC ####[facility] R[address]ub[address]fp[address] [place], [place] [address]Dr. Soo Taylor Eosinophils/100 WBC (Bld) 0.4 % Critically low 0.9-7.0 [facility] Comment on above: Performed By: #### C BC ####[facility] Rquynqlv[address] [place], [place] [address]Dr. Soo Taylor Erythrocyte distribution width (RBC) [Ratio] 15.1 % Critically high 11.0-15.[address] [facility] Comment on above: Performed By: #### C BC ####[facility] Ycgrxvzr[address] [place], [place] [address]Dr. Soo Taylor Hematocrit (Bld) [Volume fraction] 43.4 % Normal 36.0-48.0 [facility] Comment on above: Performed By: #### C BC ####[facility] F[address] [place], [place] [address]Dr. Soo Taylor Hemoglobin (Bld) [Mass/Vol] 14.4 g/dL Normal 12.0-16.[address] [facility] Comment on above: Performed By: #### C BC ####[facility] [address] [place], [place] [address]DrDanica Taylor IG # 0.06 10e3/ul Critically high 0.00-0.03 [facility] Comment on above: Performed By: #### C BC ####[facility] [address] [place] [address]DrDanica Taylor IG % 0.4 % Normal 0.0-0.[address] [facility] Comment on above: Performed By: #### C BC ####[facility] [address] [place] [address]DrDanica Taylor LYMPH # 5.4 103/ul Critically high 1.2-3.8 [facility] Comment on above: Performed By: #### C BC ####[facility] [address] [place] [address]DrDanica Taylor Lymphocytes/100 WBC (Bld) 36.6 % Normal 20.5-60.[address] [facility] Comment on above: Performed By: #### C BC ####[facility] Hz[address]rjwj[address] [place], [place] [address]DrDanica Taylor MANUAL DIFF REQ NO Normal [facility] Comment on above: Performed By: #### C BC ####[facility] [address] [place], [place] [address]DrDanica Taylor MCH (RBC) [Entitic mass] 29.4 pg Normal 26.7-34.[address] [facility] Comment on above: Performed By: #### C BC ####[facility] [address] [place] [address]DrDanica Taylor MCHC (RBC) [Mass/Vol] 33.2 g/dL Normal 29.9-35.[address] [facility] Comment on above: Performed By: #### C BC ####[facility] [address] [place] [address]DrDainca Taylor MCV (RBC) [Entitic vol] 88.6 fL Normal 81.0-99.0 [facility] Comment on above: Performed By: #### C BC ####[facility] W[address]owznbiaq[address] [place], [place] [address]Dr. Soo Taylor MONO # 0.9 103/ul Critically high 0.3-0.8 [facility] Comment on above: Performed By: #### C BC ####[facility] [address] [place] [id number]. Soo Taylor Monocytes/100 WBC (Bld) 6.4 % Normal 1.7-12.0 [facility] Comment on above: Performed By: #### C BC ####[facility] I[address] [place] [address]Dr. Soo Taylor NEUT # 8.1 103/ul Critically high 1.4-6.5 [facility] Comment on above: Performed By: #### C BC ####[facility] [address] [place] [address]Dr. Soo Taylor Neutrophils/100 WBC (Bld) 55.5 % Normal 43.0-75.[address] [facility] Comment on above: Performed By: #### C BC ####[facility] K[address]zfymf[address] [place], [place] [address]Dr. Soo Taylor Platelet mean volume (Bld) [Entitic vol] 9.9 fL Normal 9.5-13.[address] [facility] Comment on above: Performed By: #### C BC ####[facility] [address] [place] [id number]. Soo Taylor PLT 326 103/ul Normal 150-450 [facility] Comment on above: Performed By: #### C BC ####[facility] [address] [place] [id number]. Soo Taylor RBC 4.90 106/ul Normal 4.20-5.40 [facility] Comment on above: Performed By: #### C BC ####[facility] [address]wa[address] [place] [id number] Soo Brandon WBC 14.6 103/ul Critically high 4.0-11.0 [facility] Comment on above: Performed By: #### C BC ####[facility] O[address] [place], [place] [address]DrDanica Taylor PROF CHEM 8 (BAS METB)on Anion gap [Moles/Vol] 12.9 mmol/L Normal [facility] Comment on above: Performed By: #### B MP ####[facility] Tykpzwqrkd[address] [place], [place] [address]Dr. Soo Taylor Calcium [Mass/Vol] 9.5 mg/dL Normal 8.5-10.1 [facility] Comment on above: Performed By: #### B MP ####[facility] W[address]etbz[address] [place], [place] [address]Dr. Soo Taylor Chloride [Moles/Vol] 101 mmol/L Normal 98-[address] [facility] Comment on above: Performed By: #### B MP ####[facility] Les[address] [place], [place] [address]Dr. Soo Taylor CO2 [Moles/Vol] 26.6 mmol/L Normal 21.0-32.0 [facility] Comment on above: Performed By: #### B MP ####[facility] Bcbrevaryq[address] [place], [place] [address]Dr. Soo Taylor Creatinine [Mass/Vol] 1.11 mg/dL Critically high 0.55-1.[address] [facility] Comment on above: Performed By: #### B MP ####[facility] R[address]my[address]wg[address] [place], [place] [address]Dr. Soo Taylor EGFR-AF CHINESE >60 Normal >=60 [facility] Comment on above: Performed By: #### B MP ####[facility] Wnfrz[address]xes[address] [place], [place] [address]Dr. Soo Taylor EGFR-NON AF CHINESE 52 mL/min/1.73m2 Critically low >=[address] [facility] Comment on above: Performed By: #### B MP ####[facility] Ct[address]vi[address]mm[address] [place], [place] [address]Dr. Soo Taylor Glucose [Mass/Vol] 145 mg/dL Critically high 74-106 [facility] Comment on above: Performed By: #### B MP ####[facility] R[address]unnqmoc[address] [place], [place] [address]Dr. Soo Taylor Potassium [Moles/Vol] 3.5 mmol/L Normal 3.5-5.[address] [facility] Comment on above: Performed By: #### B MP ####[facility] [address] [place] [address]Dr. Soo Taylor Sodium [Moles/Vol] 137 mmol/L Normal 136-145 [facility] Comment on above: Performed By: #### B MP ####[facility] [address]zbg[address] [place] [address]Dr. Soo Taylor Urea nitrogen [Mass/Vol] 2.0 mg/dL Critically low 7.0-18. [address] [facility] Comment on above: Performed By: #### B MP ####[facility] [address] [place] [address]Dr. Soo Brandon Urea nitrogen/Creatinine [Mass ratio] 1.8 mg/mg Normal [facility] Comment on above: Performed By: #### B MP ####[facility] [address] [place] [address]Dr. Soo Taylor TROPONIN, HIGH SENSITIVITYon 04-30-2022 HSTROP 5.1 pg/mL Normal 4.0-51.[address] [facility] Comment on above: Result Comment: CUT- OFF POINTS HAVE BEEN ESTABLISHED BASED ON THE FOURTH UNIVERSAL DEFINITIONS OF MYOCARDIAL INFARCTION. THE UPPER REFERENCE LIMIT (URL) OF TROPONIN, DEFINED THE 99TH PERCENTILE OF cTnI DISTRIBUTION IN A REFERENCE POPULATION, HAS BEEN CONFIRMED THE DECISION THRESHOLD FOR [place] DIAGNOSIS. Performed By: #### H STROPN ####[facility] [address] [place] [address]Dr. Soo Taylor HSTROP 4.6 pg/mL Normal 4.0-51.3 [facility] Comment on above: Result Comment: CUT- OFF POINTS HAVE BEEN ESTABLISHED BASED ON THE FOURTH UNIVERSAL DEFINITIONS OF MYOCARDIAL INFARCTION. THE UPPER REFERENCE LIMIT (URL) OF TROPONIN, DEFINED THE 99TH PERCENTILE OF cTnI DISTRIBUTION IN A REFERENCE POPULATION, HAS BEEN CONFIRMED THE DECISION THRESHOLD FOR MN DIAGNOSIS. Performed By: #### H STROPN ####[facility] [address] [place] [address]Dr. Soo Brandon MRI LSPINE WO CONon 04-06-20 22 MRI [...] by: MAMIE COOMBS Date: 2022-04-06 18:[address] [facility] MRI KNEE RT WO CONon 022 [...] by: MAMIE COOMBS Date: 2022-03-28 11:[address] [facility] MRI SHOULDER RT WO CONon MRI [...] MAMIE COOMBS Date: 2022-03-28 09:09 Normal [facility] ER URINE PROFILEon 2 Bilirubin Ql (U) Negative Normal NEGATIVE [facility] Comment on above: Performed By: #### E RUR #### [facility] [address] [place] [address] Dr. Soo Taylor Clarity (U) CLEAR Normal CLEAR [facility] Comment on above: Performed By: #### E RUR #### [facility] [address] [place] [address] Dr. Soo Taylor Color (U) LT. YELLOW Normal YELLOW [facility] Comment on above: Performed By: #### E RUR #### [facility] [address] [place] [address] Dr. Soo Taylor ERUAHD A micrscopic examina tion will be performed if indicated. Normal [facility] Comment on above: Performed By: #### E RUR #### [facility] [address] [place] [address] Dr. Soo Taylor Glucose Ql (U) Negative Normal NEGATIVE [facility] Comment on above: Performed By: #### E RUR #### [facility] [address] [place] [address] Dr. Soo Taylor Hemoglobin Ql (U) Negative Normal NEGATIVE [facility] Comment on above: Performed By: #### E RUR #### [facility] [address] [place] [address] Dr. Soo Taylor Ketones Ql (U) Negative Normal NEGATIVE [facility] Comment on above: Performed By: #### E RUR #### [facility] [address] [place] [address] Dr. Soo Taylor LEUKOCYTES Negative Normal NEGATIVE [facility] Comment on above: Performed By: #### E RUR #### [facility] [address] [place] [address] Dr. Soo Taylor Nitrite Ql (U) Negative Normal NEGATIVE [facility] Comment on above: Performed By: #### E RUR #### [facility] [address] [place] [address] [address] Soo Taylor pH (U) 5.5 [pH] Normal 5-[address] [facility] Comment on above: Performed By: #### E RUR #### [facility] [address] [place] [address] Dr. Soo Taylor SPEC GRAVITY <=1.005 Abnormal 1.005-<=1. [address] [facility] Comment on above: Performed By: #### E RUR #### [facility] [address] [place] [address] Dr. Soo Taylor UA PROTEIN Negative Normal NEGATIVE/ TRACE [facility] Comment on above: Performed By: #### E RUR #### [facility] [address] [place] [address] Dr. Soo Taylor UR MICRO IND NOT INDICATED Normal [facility] Comment on above: Performed By: #### E RUR #### [facility] [address] [place] [address] Dr. Soo Taylor Urobilinogen Qn (U) 0.2 {Gareth'U}/dL Normal 0.2 - 1. [address] [facility] Comment on above: Performed By: #### E RUR #### [facility] [address] [place] [address] Dr. Soo Taylor COMPREHENSIVE METABOLIC PANE Bulmaro 02-22-2022 Albumin [Mass/Vol] 4.2 g/dL Normal 3.6-5.1 [facility] Comment on above: Performed By: #### 7 600, 11833, 496 #### [facility] [address], [address] [place], [place] [id number] Credit Control Administrator: Arjun Ramos MD Albumin/Globulin [Mass ratio] 1.8 {ratio} Normal 1.0-2.5 [facility] Comment on above: Performed By: #### 7 600, 69912, 496 #### [facility] [address], [address] [place] [address] Credit Control Administrator: Arjun Ramos MD ALP [Catalytic activity/Vol] 143 U/L Normal 37-153 [facility] Comment on above: Performed By: #### 7 600, 21013, 496 #### [facility] [place] [address] Credit Control Administrator: Arjun Ramos MD ALT [Catalytic activity/Vol] 18 U/L Normal 6-29 [facility] Comment on above: Performed By: #### 7 600, 59832, 496 #### [facility] [place] [address] Credit Control Administrator: Arjun Ramos MD AST [Catalytic activity/Vol] 14 U/L Normal 10-35 [facility] Comment on above: Performed By: #### 7 600, 94494, 496 #### [facility] [place] [address] Credit Control Administrator: Arjun Ramos MD Bilirubin [Mass/Vol] 0.5 mg/dL Normal 0.2-1.2 [facility] Comment on above: Performed By: #### 7 600, 22520, 496 #### [facility] [place] [address] Credit Control Administrator: Arjun Ramos MD Calcium [Mass/Vol] 10.0 mg/dL Normal 8.6-10.4 [facility] Comment on above: Performed By: #### 7 600, 42760, 496 #### [facility] [place] [address] Credit Control Administrator: Arjun Ramos MD Chloride [Moles/Vol] 100 mmol/L Normal 98-110 [facility] Comment on above: Performed By: #### 7 600, 97627, 496 #### [facility] [place] [address] Credit Control Administrator: Arjun Ramos MD CO2 [Moles/Vol] 29 mmol/L Normal 20-32 [facility] Comment on above: Performed By: #### 7 600, 06258, 496 #### [facility] [place] [address] Credit Control Administrator: Arjun Ramos MD Creatinine [Mass/Vol] 0.86 mg/dL Normal 0.50-1.[address] [facility] Comment on above: Result Comment: For patients >49 years of age, the reference limit for Creatinine is approximately 13% higher for people identified as -Afghan. Performed By: #### 7 600, 67518, 496 #### [facility] [place] [address] Credit Control Administrator: Arjun Ramos MD eGFR NON-AFR. CHINESE 78 mL/min/1.73m2 Normal > OR = 60 [facility] Comment on above: Performed By: #### 7 600, 27955, 496 #### [facility] [place] [address] Credit Control Administrator: Arjun Ramos MD GFR/1.73 sq M.predicted among blacks MDRD (S/P/Bld) [Vol rate/Area] 91 mL/min/{1.73_m2} Normal > OR = 60 [facility] Comment on above: Performed By: #### 7 600, 29918, 496 #### [facility] [place] [address] Credit Control Administrator: Arjun Ramos MD Globulin (S) [Mass/Vol] 2.4 g/dL Normal 1.9-3.7 [facility] Comment on above: Performed By: #### 7 600, 76387, 496 #### [facility] [place] [address] Credit Control Administrator: Arjun Ramos MD Glucose [Mass/Vol] 125 mg/dL Normal 65-139 [facility] Comment on above: Result Comment: Non-fasting reference interval For someone without known diabetes, a glucose value between 100 and 125 mg/dL is consistent with prediabetes and should be confirmed with a follow-up test. Performed By: #### 7 600, 94711, 496 #### [facility] [place] [id number] Credit Control Administrator: Arjun Ramos MD Potassium [Moles/Vol] 3.6 mmol/L Normal 3.5-5.3 [facility] Comment on above: Performed By: #### 7 600, 17029, 496 #### [facility] [place] [address] Credit Control Administrator: Arjun Ramos MD Protein [Mass/Vol] 6.6 g/dL Normal 6.1-8.1 [facility] Comment on above: Performed By: #### 7 600, 63952, 496 #### [facility] [place] [address] Credit Control Administrator: Arjun Ramos MD Sodium [Moles/Vol] 139 mmol/L Normal 135-146 [facility] Comment on above: Performed By: #### 7 600, 02161, 496 #### [facility] [place] [address] Credit Control Administrator: Arjun Ramos MD Urea nitrogen [Mass/Vol] 4 mg/dL Low 7-25 [facility] Comment on above: Performed By: #### 7 600, 75671, 496 #### [facility] [place] [address] Credit Control Administrator: Arjun Ramos MD Urea nitrogen/Creatinine [Mass ratio] 5 mg/mg Low 6-22 [facility] Comment on above: Performed By: #### 7 600, 25174, 496 #### [facility] [place] [address] Credit Control Administrator: Arjun Ramos MD HEMOGLOBIN A1con 02-22-2022 HEMOGLOBIN [...] diagnosis of diabetes in children. According to [place] Diabetes Association (ADA) guidelines, hemoglobin A1c <7.0% represents optimal control in non- diabetic patients. Different metrics may apply to specific patient populations. Standards of Medical Care in Diabetes(ADA). Performed By: #### 7 600, 08688, 496 #### [facility] [address], [address] [place] [address] Credit Control Administrator: Arjun Ramos MD LIPID PANEL, [facility] 07-0 Cholesterol [Mass/Vol] 187 mg/dL Normal <200 [facility] Comment on above: Order Comment: FASTI NG:NO FASTING: NO Performed By: #### 7 600, 57112, 496 #### [facility] [address], [address] [place] [address] Credit Control Administrator: Arjun Ramos MD Cholesterol in HDL [Mass/Vol] 43 mg/dL Low > OR = 50 [facility] Comment on above: Order Comment: FASTI NG:NO FASTING: NO Performed By: #### 7 600, 12614, 496 #### [facility] [address], [address] [place] [address] Credit Control Administrator: Arjun Ramos MD Cholesterol.total/Choles terol in HDL [Mass ratio] 4.3 {ratio} Normal <5.0 [facility] Comment on above: Order Comment: FASTI NG:NO FASTING: NO Performed By: #### 7 600, 69185, 496 #### [facility] [address], [address] [place] [address] Credit Control Administrator: Arjun Ramos MD LDL-CHOLESTEROL Normal [facility] [...] LDL-C. Lan MARTÍNEZ et al. KELLY. 2013;310(19): 9082-1226 (http://education.Efficas.Soweso/faq/EQH530) Performed By: #### 7 600, 74730, 496 #### [facility] [address], [address] [place] [address] Credit Control Administrator: Arjun Ramos MD NON HDL CHOLESTEROL 144 mg/dL (calc) High <130 [facility] Comment on above: Order Comment: FASTI NG:NO FASTING: NO Result Comment: For patients with diabetes plus 1 major ASCVD risk factor, treating to a non-HDL-C goal of <100 mg/dL (LDL-C of <70 mg/dL) is considered a therapeutic option. Performed By: #### 7 600, 86693, 496 #### [facility] [address], [address] [place] [address] Credit Control Administrator: Arjun Ramos MD Triglyceride [Mass/Vol] 425 mg/dL High <150 [facility] Comment on above: Order Comment: FASTI NG:NO FASTING: NO Result Comment: If a non-fasting specimen was collected, consider repeat triglyceride testing on a fasting specimen if clinically indicated. Heber et al. J. of Clin. Lipidol. 2015;9:129-169. Performed By: #### 7 600, 60382, 496 #### [facility] [address], [address] [place] [address] Credit Control Administrator: Arjun Ramos MD HEMOGLOBIN A1con 11-14-2021 HEMOGLOBIN [...] 7 600, 496 #### [facility] [address], [address] [place] [address] Credit Control Administrator: Arjun Ramos MD LIPID PANEL, [facility] 10-18 Cholesterol [Mass/Vol] 184 mg/dL Normal <200 [facility] Comment on above: Order Comment: FASTI NG:YES FASTING: YES Performed By: #### 7 600, 496 #### [facility] [address], [address] [place] [address] Credit Control Administrator: Arjun Ramos MD Cholesterol in HDL [Mass/Vol] 32 mg/dL Low > OR = 50 [facility] Comment on above: Order Comment: FASTI NG:YES FASTING: YES Performed By: #### 7 600, 496 #### [facility] [address], [address] [place] [address] Credit Control Administrator: Arjun Ramos MD Cholesterol.total/Choles terol in HDL [Mass ratio] 5.8 {ratio} High <5.0 [facility] Comment on above: Order Comment: FASTI NG:YES FASTING: YES Performed By: #### 7 600, 496 #### [facility] [address], [address] [place] [address] Credit Control Administrator: Arjun Ramos MD LDL-CHOLESTEROL Normal [facility] [...] LDL-C. Lan MARTÍNEZ et al. KELLY. 2013;310(19): 9662-4427 (http://education.Efficas.Soweso/faq/IHA963) Performed By: #### 7 600, 496 #### [facility] [place] [address] [address] Credit Control Administrator: Arjun Ramos MD NON HDL CHOLESTEROL 152 mg/dL (calc) High <130 [facility] Comment on above: Order Comment: FASTI NG:YES FASTING: YES Result Comment: For patients with diabetes plus 1 major ASCVD risk factor, treating to a non-HDL-C goal of <100 mg/dL (LDL-C of <70 mg/dL) is considered a therapeutic option. Performed By: #### 7 600, 496 #### [facility] [address], [address] [place] [phone] Credit Control Administrator: Arjun Ramos MD Triglyceride [Mass/Vol] 531 mg/dL [...] #### 7 600, 496 #### [facility] [address] [address] Credit Control Administrator: Arjun Ramos MD OVashlee 06-27-2021 CNOV Office Visit (OTOLCC ) -------- ROCK HERRERA ([id number]) 1970 F Date Time Provider Department 06/27/21 2:00 PM [facility], we recorded the following information about you: Temperature Pulse 97.3 degrees 82/minute Crystal Rodriguez PA-C 06/27/2021 4:56 PM Signed [facility] NOTE CC: Rock Herrera is a [...] mg ta (more content not included)... 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 Normal [facility] XR ELBOW 3V AP/LAT/OTHER RTo [...] NO ACUTE OSSEOUS ABNORMALITY OTHER FINDINGS DESCRIBED Medical Intern: [facility] Transcribe Date/Time: Apr 19 2021 2:38P Dictated by : CAROL ROCHE MD This examination was interpreted and the report reviewed and electronically signed by: CAROL ROCHE MD on Apr 19 2021 2:39PM EST [id number] Normal [facility] XR Elbow - right AP and Late ral and obliqueon 04-19-2021 IMPRESSION: NO ACUTE OSSEOUS ABNORMALITY OTHER FINDINGS DESCRIBED Medical Intern: [facility] Transcribe Date/Time: Apr 19 2021 2:38P Dictated by : CAROL ROCHE MD This examination was interpreted and the report reviewed and electronically signed by: CAORL ROCHE MD on Apr 19 2021 2:39PM [...] NO ACUTE OSSEOUS ABNORMALITY OTHER FINDINGS DESCRIBED Medical Intern: DIONNE Transcribe Date/Time: Apr 19 2021 2:38P Dictated by : CAROL ROCHE MD This examination was interpreted and the report reviewed and electronically signed by: CAROL ROCHE MD on Apr 19 2021 2:39PM [facility] Radiology Study observation (narrative) [facility] XR Elbow - right AP and Late ral and obliqueOrdered By: Ccf Provider on 04-19-2021 [facility] XR SHLDR >/=3V AP/IGNACIA AP/OTH R [...] No other significant abnormality. IMPRESSION: HEALING FRACTURE Medical Intern: DIONNE Transcribe Date/Time: Apr 19 2021 2:02P Dictated by : CARLO ROCHE MD This examination was interpreted and the report reviewed and electronically signed by: CAROL ROCHE MD on Apr 19 2021 2:02PM EST [id number] Normal [facility] XR Shoulder - right 3 Viewso n 04-19-2021 IMPRESSION: HEALING FRACTURE Medical Intern: [facility] Transcribe Date/Time: Apr 19 2021 2:02P Dictated [...] other significant abnormality. IMPRESSION IMPRESSION: HEALING FRACTURE Medical Intern: DIONNE Transcribe Date/Time: Apr 19 2021 2:02P Dictated by : CAROL ROCHE MD This examination was interpreted and the report reviewed and electronically signed by: CAROL ROCHE MD on Apr 19 2021 2:02PM EST [facility] Radiology Study observation (narrative) [facility] XR Shoulder - right 3 ViewsO rdered By: Ccf Provider on 04-19-2021 [facility] Vital Signs Date Time Vital Sign Value Performing Clinician Facility 04-26-2025 15:06-0400 Body height 162.56 cm Sophono DO Work Phone: [facility] 04-26-2025 15:06-0400 Body mass index (BMI) [Ratio] 25.9 kg/m2 Robert [employer] DO Work Phone: [facility] 04-26-2025 15:06-0400 Body weight 68.49 kg RobertTapBookAuthor DO Work Phone: [facility] 04-26-2025 15:06-0400 Diastolic blood pressure 74 mm[Hg] Sophono DO Work Phone: [facility] 04-26-2025 15:06-0400 Heart rate 59 /min Robert Furlong DO Work Phone: [facility] 04-26-2025 15:06-0400 Respiratory rate 20 /min Robert Furlong DO Work Phone: [facility] 04-26-2025 15:06-0400 SaO2% (BldA) [Mass fraction] 96 % Robert Furlong DO Work Phone: [facility] 04-26-2025 15:06-0400 Systolic blood pressure 112 mm[Hg] Robert Furlong DO Work Phone: [facility] 03-16-2025 14:06-0400 Body height 162.6 cm Robert Furlong DO Work Phone: [facility] [employer] [facility] 03-16-2025 14:06-0400 Body mass index (BMI) [Ratio] 26.43 kg/m2 Robert Furlong DO Work Phone: [facility] [employer] [facility] 03-16-2025 14:06-0400 Body temperature 97.9 [degF] Robert Furlong DO [facility] 03-16-2025 14:06-0400 Body weight 69.85 kg Robert Furlong DO [facility] 03-16-2025 14:06-0400 Diastolic blood pressure 60 mm[Hg] Robert Furlong DO Work Phone: [facility] [employer] [facility] 03-16-2025 14:06-0400 Heart rate 56 /min Robert Furlong DO [facility] 03-16-2025 14:06-0400 Respiratory rate 20 /min Robert Furlong DO Work Phone: [facility] [employer] [facility] 03-16-2025 14:06-0400 SaO2% (BldA) [Mass fraction] 98 % Robert Furlong DO Work Phone: [facility] [employer] [facility] 03-16-2025 14:06-0400 Systolic blood pressure 110 mm[Hg] Robert Giron DO Work Phone: [facility] 03-10-2025 09:15-0400 Body height 162.6 cm Maya Lynn PERSONAL LINES UNDERWRITER-CORONARY CARE UNIT NURSE Work Phone: [facility] 03-10-2025 09:15-0400 Body mass index (BMI) [Ratio] 26.37 kg/m2 Maya Lynn PERSONAL LINES UNDERWRITER-CORONARY CARE UNIT NURSE Work Phone: [facility] 03-10-2025 09:15-0400 Body weight 69.67 kg Maya Lynn PERSONAL LINES UNDERWRITER-CORONARY CARE UNIT NURSE Work Phone: [facility] 03-04-2025 13:18-0400 Body height 162.6 cm Martin Arango DPM Work Phone: [facility] 03-04-2025 13:18-0400 Body mass index (BMI) [Ratio] 26.43 kg/m2 Martin Arango DPM Work Phone: [facility] 03-04-2025 13:18-0400 Body weight 69.85 kg Martin Arango DPM Work Phone: [facility] 03-04-2025 13:18-0400 Respiratory rate 16 /min Martin Arango DPM Work Phone: [facility] 02-25-2025 14:48-0400 Body height 162.6 cm Carlos Sanchez MD Work Phone: [facility] 02-25-2025 14:48-0400 Body mass index (BMI) [Ratio] 26.43 kg/m2 Carlos Sanchez MD Work Phone: [facility] 02-25-2025 14:48-0400 Body weight 69.85 kg Carlos Sanchez MD Work Phone: [facility] 02-25-2025 14:48-0400 Diastolic blood pressure 76 mm[Hg] Carlos Sanchez MD Work Phone: [facility] 02-25-2025 14:48-0400 Systolic blood pressure 122 mm[Hg] Carlos Sanchez MD Work Phone: [facility] 02-24-2025 11:29-0400 Body height 162.6 cm Robert Furlong DO Work Phone: [facility] 02-24-2025 11:29-0400 Body mass index (BMI) [Ratio] 26.32 kg/m2 Robert Furlong DO Work Phone: [facility] 02-24-2025 11:29-0400 Body temperature 97.39 [degF] Robert Furlong DO Work Phone: [facility] [employer] [facility] 02-24-2025 11:29-0400 Body weight 69.58 kg Robert Furlong DO Work Phone: [facility] 02-24-2025 11:29-0400 Diastolic blood pressure 68 mm[Hg] Robert Furlong DO Work Phone: [facility] 02-24-2025 11:29-0400 Heart rate 51 /min Robert Furlong DO Work Phone: [facility] 02-24-2025 11:29-0400 Respiratory rate 18 /min Robert Furlong DO Work Phone: [facility] 02-24-2025 11:29-0400 SaO2% (BldA) [Mass fraction] 98 % Robert Furlong DO Work Phone: [facility] 02-24-2025 11:29-0400 Systolic blood pressure 102 mm[Hg] Robert Furlong DO Work Phone: [facility] [employer] [facility] 02-04-2025 13:03-0400 Body height 162.6 cm Martin Arango DPM Work Phone: [facility] 02-04-2025 13:03-0400 Body mass index (BMI) [Ratio] 26.95 kg/m2 Martin Brown DPM Work Phone: [facility] 02-04-2025 13:03-0400 Body weight 71.22 kg Martin Brown DPM Work Phone: [facility] 02-04-2025 13:03-0400 Respiratory rate 16 /min Martin Brown DPM Work Phone: [facility] 01-14-2025 16:13-0400 Body height 162.6 cm Martin Brown DPM Work Phone: [facility] 01-14-2025 16:13-0400 Body mass index (BMI) [Ratio] 26.95 kg/m2 Martin Brown DPM Work Phone: [facility] 01-14-2025 16:13-0400 Body weight 71.22 kg Martin Brown DPM Work Phone: [facility] 01-14-2025 16:13-0400 Respiratory rate 18 /min Martin Brown DPM Work Phone: [facility] 12-17-2024 13:06-0400 Body height 162.6 cm Martin Brown DPM Work Phone: [facility] 12-17-2024 13:06-0400 Body mass index (BMI) [Ratio] 26.95 kg/m2 Martin Brown DPM Work Phone: [facility] 12-17-2024 13:06-0400 Body weight 71.22 kg Martin Brown DPM Work Phone: [facility] 12-17-2024 13:06-0400 Respiratory rate 16 /min Martin Brown DPM Work Phone: [facility] 12-15-2024 15:41-0400 Body height 162.6 cm Robert Furlong DO Work Phone: [facility] 12-15-2024 15:41-0400 Body mass index (BMI) [Ratio] 26.25 kg/m2 Robert Furlong DO [facility] 12-15-2024 15:41-0400 Body temperature 97.81 [degF] Robert Furlong DO [facility] 12-15-2024 15:41-0400 Body weight 69.4 kg Robert Furlong DO [facility] 12-15-2024 15:41-0400 Diastolic blood pressure 50 mm[Hg] Robert Furlong DO [facility] 12-15-2024 15:41-0400 Heart rate 58 /min Robert Furlong DO [facility] 12-15-2024 15:41-0400 Respiratory rate 18 /min Robert Furlong DO [facility] 12-15-2024 15:41-0400 SaO2% (BldA) [Mass fraction] 97 % Robert Furlong DO [facility] 12-15-2024 15:41-0400 Systolic blood pressure 110 mm[Hg] Robert Furlong DO [facility] 12-15-2024 09:58-0400 Body mass index (BMI) [Ratio] 26.25 kg/m2 Reyes COLES [facility] 12-15-2024 09:58-0400 Body weight 69.4 kg Reyes COLES [facility] 12-15-2024 09:58-0400 Diastolic blood pressure 70 mm[Hg] Reyes COLES [facility] 12-15-2024 09:58-0400 Heart rate 51 /min Reyes COLES [facility] 12-15-2024 09:58-0400 Respiratory rate 20 /min eRyes COLES Work Phone: [facility] 12-15-2024 09:58-0400 Systolic blood pressure 117 mm[Hg] Reyes COLES Work Phone: [facility] 12-03-2024 11:52-0400 Body height 162.6 cm Martin Brown DPM Work Phone: [facility] 12-03-2024 11:52-0400 Body mass index (BMI) [Ratio] 26.95 kg/m2 Martin Brown DPM Work Phone: [facility] 12-03-2024 11:52-0400 Body weight 71.22 kg Martin Brown DPM Work Phone: [facility] 12-03-2024 11:52-0400 Respiratory rate 18 /min Martni Brown DPM Work Phone: [facility] 11-19-2024 10:36-0400 Body height 162.6 cm Martin Brown DPM Work Phone: [facility] 11-19-2024 10:36-0400 Body mass index (BMI) [Ratio] 26.95 kg/m2 Martin Brown DPM Work Phone: [facility] 11-19-2024 10:36-0400 Body weight 71.22 kg Martin Brown DPM Work Phone: [facility] 11-19-2024 10:36-0400 Respiratory rate 16 /min Martin Brown DPM Work Phone: [facility] 11-11-2024 13:26-0400 Body mass index (BMI) [Ratio] 27.02 kg/m2 Carlos Sanchez MD Work Phone: [facility] 11-11-2024 13:26-0400 Body weight 71.4 kg Carlos Sanchez MD Work Phone: [facility] 10-26-2024 15:29-0400 Body height 162.6 cm Robert Furlong DO Work Phone: [facility] [employer] [facility] 10-26-2024 15:29-0400 Body mass index (BMI) [Ratio] 26.95 kg/m2 Robert Furlong DO Work Phone: [facility] [employer] [facility] 10-26-2024 15:29-0400 Body temperature 97.2 [degF] Robert Furlong DO Work Phone: [facility] 10-26-2024 15:29-0400 Body weight 71.26 kg Robert Furlong DO Work Phone: [facility] 10-26-2024 15:29-0400 Diastolic blood pressure 50 mm[Hg] Robert Furlong DO Work Phone: [facility] 10-26-2024 15:29-0400 Heart rate 68 /min Robert Furlong DO Work Phone: [facility] 10-26-2024 15:29-0400 Respiratory rate 18 /min Robert Furlong DO Work Phone: [facility] 10-26-2024 15:29-0400 SaO2% (BldA) [Mass fraction] 96 % Robert Furlong DO Work Phone: [facility] 10-26-2024 15:29-0400 Systolic blood pressure 98 mm[Hg] Robert Furlong DO Work Phone: [facility] 10-12-2024 15:02-0500 Body height 162.56 cm [facility] 10-12-2024 15:02-0500 Body mass index (BMI) [Ratio] 26.4 kg/m2 [facility] 10-12-2024 15:02-0500 Body temperature 98.1 [degF] [facility] 10-12-2024 15:02-0500 Body weight 69.85 kg [facility] 10-12-2024 15:02-0500 Diastolic blood pressure 66 mm[Hg] [facility] 10-12-2024 15:02-0500 Heart rate 92 /min [facility] 10-12-2024 15:02-0500 Respiratory rate 20 /min [facility] 10-12-2024 15:02-0500 SaO2% (BldA) [Mass fraction] 96 % [facility] 10-12-2024 15:02-0500 Systolic blood pressure 116 mm[Hg] [facility] 09-16-2024 13:06-0500 Body height 162.6 cm Nikki Vergara [employer] Work Phone: [facility] 09-16-2024 13:06-0500 Body mass index (BMI) [Ratio] 27.48 kg/m2 Nikki Spearsgel [employer] Work Phone: [facility] 09-16-2024 13:06-0500 Body weight 72.62 kg Nikki Spearsgel [employer] Work Phone: [facility] 09-16-2024 13:06-0500 Diastolic blood pressure 60 mm[Hg] Nikki Wakefieldnagel [employer] Work Phone: [facility] 09-16-2024 13:06-0500 Systolic blood pressure 110 mm[Hg] Nikki Spearsgel [employer] Work Phone: [facility] 09-15-2024 15:39-0500 Body height 162.6 cm Robert Furlong DO Work Phone: [facility] 09-15-2024 15:39-0500 Body mass index (BMI) [Ratio] 27.29 kg/m2 Robert Furlong DO Work Phone: [facility] 09-15-2024 15:39-0500 Body temperature 97.7 [degF] Robert Furlong DO Work Phone: [facility] 09-15-2024 15:39-0500 Body weight 72.12 kg Robert Furlong DO Work Phone: [facility] 09-15-2024 15:39-0500 Diastolic blood pressure 60 mm[Hg] Robert Furlong DO Work Phone: [facility] [employer] [facility] 09-15-2024 15:39-0500 Heart rate 104 /min Robert Furlong DO Work Phone: [facility] [employer] [facility] 09-15-2024 15:39-0500 Respiratory rate 18 /min Robert Carmenlong DO Work Phone: [facility] 09-15-2024 15:39-0500 SaO2% (BldA) [Mass fraction] 94 % Robert Furlong DO Work Phone: [facility] 09-15-2024 15:39-0500 Systolic blood pressure 90 mm[Hg] Robert Carmenlong DO Work Phone: [facility] 08-26-2024 12:24-0500 Diastolic blood pressure 59 mm[Hg] Cady Steek SA [facility] 08-26-2024 12:24-0500 Heart rate 47 /min Cady Steek SA [facility] 08-26-2024 12:24-0500 Mean blood pressure 76 mm[Hg] Cady Steek SA [facility] 08-26-2024 12:24-0500 Respiratory rate 16 /min Cady Steek SA [facility] 08-26-2024 12:24-0500 Systolic blood pressure 111 mm[Hg] Cady Steek SA [facility] 08-13-2024 13:14-0500 Blood Pressure Location Kehinde Kirnus [facility] 08-13-2024 13:14-0500 Diastolic blood pressure 76 mm[Hg] Kehinde Kirnus [facility] 08-13-2024 13:14-0500 Heart rate 62 /min Kehinde Kirnus [facility] 08-13-2024 13:14-0500 Respiratory rate 18 /min Kehinde Davalos [facility] 08-13-2024 13:14-0500 SaO2% (BldA) [Mass fraction] 98 % Kehinde Davalos [facility] 08-13-2024 13:14-0500 Systolic blood pressure 120 mm[Hg] Kehinde Davalos [facility] 08-10-2024 13:09-0500 Body height 162.6 cm Carlos Sanchez MD Work Phone: [facility] 08-10-2024 13:09-0500 Body mass index (BMI) [Ratio] 28.15 kg/m2 Carlos Sanchez MD Work Phone: [facility] 08-10-2024 13:09-0500 Body weight 74.39 kg Carlos Sanchez MD Work Phone: [facility] 07-29-2024 13:54-0500 Body mass index (BMI) [Ratio] 27.64 kg/m2 David Wilfredo DO Work Phone: [facility] 07-29-2024 13:54-0500 Body weight 73.03 kg David Wilfredo DO Work Phone: [facility] 07-29-2024 13:54-0500 Diastolic blood pressure 74 mm[Hg] David Wilfredo DO Work Phone: [facility] 07-29-2024 13:54-0500 Systolic blood pressure 120 mm[Hg] David Wilfredo DO Work Phone: [facility] 06-18-2024 15:01-0400 Body height 162.6 cm Martin Arango DPM Work Phone: [facility] 06-18-2024 15:01-0400 Body mass index (BMI) [Ratio] 28.15 kg/m2 Martin Arango DPM Work Phone: [facility] 06-18-2024 15:01-0400 Body weight 74.39 kg Martin Arango DPM Work Phone: [facility] 06-18-2024 15:01-0400 Diastolic blood pressure 79 mm[Hg] Martin Arango DPM Work Phone: [facility] 06-18-2024 15:01-0400 Heart rate 84 /min Martin Arango DPM Work Phone: [facility] 06-18-2024 15:01-0400 Systolic blood pressure 140 mm[Hg] Martin Arango DPM Work Phone: [facility] 05-14-2024 10:18-0400 Body height 162.6 cm Martin Arango DPM Work Phone: [facility] 05-14-2024 10:18-0400 Body mass index (BMI) [Ratio] 28.15 kg/m2 Martin Arango DPM Work Phone: [facility] 05-14-2024 10:18-0400 Body weight 74.39 kg Martin Arango DPM Work Phone: [facility] 05-14-2024 10:18-0400 Diastolic blood pressure 80 mm[Hg] Martin Arango DPM Work Phone: [facility] 05-14-2024 10:18-0400 Heart rate 75 /min Martin Arango DPM Work Phone: [facility] 05-14-2024 10:18-0400 Respiratory rate 18 /min Martin Arango DPM Work Phone: [facility] 05-14-2024 10:18-0400 Systolic blood pressure 125 mm[Hg] Martin Arango DPM Work Phone: [facility] 04-27-2024 14:22-0400 Body height 162.6 cm Carlos Sanchez MD Work Phone: [facility] 04-27-2024 14:22-0400 Body mass index (BMI) [Ratio] 28.15 kg/m2 Carlos Sanchez MD Work Phone: [facility] 04-27-2024 14:22-0400 Body weight 74.39 kg Carlos Sanchez MD Work Phone: [facility] 04-27-2024 14:22-0400 Diastolic blood pressure 86 mm[Hg] Carlos Sanchez MD Work Phone: [facility] 04-27-2024 14:22-0400 Systolic blood pressure 124 mm[Hg] Carlos Sanchez MD Work Phone: [facility] 04-23-2024 09:33-0400 Body height 162.6 cm Martin Brown DPM Work Phone: [facility] 04-23-2024 09:33-0400 Body mass index (BMI) [Ratio] 28.15 kg/m2 Martin Brown DPM Work Phone: [facility] 04-23-2024 09:33-0400 Body weight 74.39 kg Martin Brown DPM Work Phone: [facility] 04-23-2024 09:33-0400 Diastolic blood pressure 82 mm[Hg] Martin Brown DPM Work Phone: [facility] 04-23-2024 09:33-0400 Heart rate 74 /min Martin Brown DPM Work Phone: [facility] 04-23-2024 09:33-0400 Respiratory rate 18 /min Martin Brown DPM Work Phone: [facility] 04-23-2024 09:33-0400 Systolic blood pressure 128 mm[Hg] Martin Brown DPM Work Phone: [facility] 04-09-2024 10:21-0400 Body height 162.6 cm Martin Brown DPM Work Phone: [facility] 04-09-2024 10:21-0400 Body mass index (BMI) [Ratio] 28.15 kg/m2 Martin Arango DPM Work Phone: [facility] 04-09-2024 10:21-0400 Body weight 74.39 kg Martin Arango DPM Work Phone: [facility] 04-09-2024 10:21-0400 Diastolic blood pressure 80 mm[Hg] Martin Arango DPM Work Phone: [facility] 04-09-2024 10:21-0400 Heart rate 78 /min Martin Arango DPM Work Phone: [facility] 04-09-2024 10:21-0400 Systolic blood pressure 129 mm[Hg] Martin Arango DPM Work Phone: [facility] 04-08-2024 12:20-0400 Body height 162.6 cm Cj Apling [employer] Work Phone: [facility] 04-08-2024 12:20-0400 Body mass index (BMI) [Ratio] 28.15 kg/m2 Cj Apling [employer] Work Phone: [facility] 04-08-2024 12:20-0400 Body weight 74.39 kg Cj Apling [employer] Work Phone: [facility] 03-05-2024 15:16-0400 Diastolic blood pressure 69 mm[Hg] Andrew Eid [facility] 03-05-2024 15:16-0400 Heart rate 62 /min Andrew Eid [facility] 03-05-2024 15:16-0400 Mean blood pressure 84 mm[Hg] Andrew Eid [facility] 03-05-2024 15:16-0400 Respiratory rate 14 /min Andrew Eid [facility] 03-05-2024 15:16-0400 Systolic blood pressure 115 mm[Hg] Andrew Eid [facility] 01-30-2024 13:54-0400 Diastolic blood pressure 68 mm[Hg] En Carmen [facility] 01-30-2024 13:54-0400 Systolic blood pressure 124 mm[Hg] En Carmen [facility] 01-15-2024 08:16-0400 Diastolic blood pressure 70 mm[Hg] Acdy Alva [facility] 01-15-2024 08:16-0400 Heart rate 73 /min Cady Steek SA [facility] 01-15-2024 08:16-0400 Mean blood pressure 82 mm[Hg] Cady Alva [facility] 01-15-2024 08:16-0400 Respiratory rate 16 /min Cady Alva [facility] 01-15-2024 08:16-0400 Systolic blood pressure 105 mm[Hg] Cady Steek SA [facility] 01-01-2024 11:04-0400 Diastolic blood pressure 71 mm[Hg] Cady Alva [facility] 01-01-2024 11:04-0400 Heart rate 62 /min Cady Alva [facility] 01-01-2024 11:04-0400 Mean blood pressure 91 mm[Hg] Cady Alva [facility] 01-01-2024 11:04-0400 Respiratory rate 12 /min Cady Steek SA [facility] 01-01-2024 11:04-0400 Systolic blood pressure 131 mm[Hg] Cady Steek SA [facility] 12-31-2023 12:53-0400 Blood Pressure Location SHERI JIMENES [facility] 12-31-2023 12:53-0400 Diastolic blood pressure 65 mm[Hg] SHERI JIMENES [facility] 12-31-2023 12:53-0400 Heart rate 57 /min SHERI JIMENES [facility] 12-31-2023 12:53-0400 Respiratory rate 16 /min SHERI JIMENES [facility] 12-31-2023 12:53-0400 Systolic blood pressure 117 mm[Hg] SHERI JIMENES [facility] 12-11-2023 09:29-0400 Heart rate 89 /min Andrew Eid [facility] 12-11-2023 09:29-0400 SaO2% (BldA) [Mass fraction] 96 % Andrew Eid [facility] 12-11-2023 09:29-0400 Diastolic blood pressure 86 mm[Hg] Andrew Eid [facility] 12-11-2023 09:29-0400 Mean blood pressure 103 mm[Hg] Andrew Eid [facility] 12-11-2023 09:29-0400 Systolic blood pressure 137 mm[Hg] Andrew Eid [facility] 12-11-2023 09:29-0400 Respiratory rate 14 /min Andrew Eid [facility] 12-11-2023 09:25-0400 Diastolic blood pressure 84 mm[Hg] Andrew Eid [facility] 12-11-2023 09:25-0400 Heart rate 97 /min Andrew Eid [facility] 12-11-2023 09:25-0400 SaO2% (BldA) [Mass fraction] 96 % Andrew Eid [facility] 12-11-2023 09:25-0400 Systolic blood pressure 141 mm[Hg] Andrew Eid [facility] 12-11-2023 08:44-0400 Heart rate 93 /min Andrew Eid [facility] 12-11-2023 08:44-0400 SaO2% (BldA) [Mass fraction] 94 % Andrwe Eid [facility] 12-11-2023 08:44-0400 Body temperature 98.24 [degF] Andrew Eid [facility] 12-11-2023 08:43-0400 Diastolic blood pressure 86 mm[Hg] Andrew Eid [facility] 12-11-2023 08:43-0400 Mean blood pressure 102 mm[Hg] Andrew Eid [facility] 12-11-2023 08:43-0400 Systolic blood pressure 134 mm[Hg] Andrew Eid [facility] 12-11-2023 08:43-0400 Respiratory rate 15 /min Andrew Eid [facility] 11-06-2023 09:32-0400 Diastolic blood pressure 71 mm[Hg] Cady Alva [facility] 11-06-2023 09:32-0400 Heart rate 79 /min Cady Alva [facility] 11-06-2023 09:32-0400 Mean blood pressure 84 mm[Hg] Cady Alva [facility] 11-06-2023 09:32-0400 Respiratory rate 15 /min Cady Alva [facility] 03-20-2024 09:32-0400 Systolic blood pressure 111 mm[Hg] Cady Alva [facility] 09-26-2023 15:11-0500 Body height 165.1 cm Martin Arango DPM Work Phone: [facility] 09-26-2023 15:11-0500 Body mass index (BMI) [Ratio] 29.29 kg/m2 Martin Arango DPM Work Phone: [facility] 09-26-2023 15:11-0500 Body weight 79.83 kg Martin Brown DPM Work Phone: [facility] 09-26-2023 15:11-0500 Diastolic blood pressure 80 mm[Hg] Martin Arango DPM Work Phone: [facility] 09-26-2023 15:11-0500 Heart rate 79 /min Martin Arango DPM Work Phone: [facility] 09-26-2023 15:11-0500 Systolic blood pressure 133 mm[Hg] Martin Arango DPM Work Phone: [facility] 09-17-2023 08:23-0500 Blood Pressure Location SHERI JIMENES [facility] 09-17-2023 08:23-0500 Diastolic blood pressure 52 mm[Hg] SHERI YUDY [facility] 09-17-2023 08:23-0500 Heart rate 65 /min SHERI YUDY [facility] 09-17-2023 08:23-0500 Respiratory rate 16 /min SHERI YUDY [facility] 09-17-2023 08:23-0500 Systolic blood pressure 135 mm[Hg] SHERI YUDY [facility] 08-27-2023 10:30-0500 Body height 165.1 cm Valarie Yael Other [employer] Other 08-27-2023 10:30-0500 Body mass index (BMI) [Ratio] 29.28 kg/m2 Valarie Yael Other [employer] Other 08-27-2023 10:30-0500 Body temperature 97.2 [degF] Valarie Yael Other [employer] Other 08-27-2023 10:30-0500 Body weight 79.83 kg Valarie Yael Other [employer] Other 08-27-2023 10:30-0500 Diastolic blood pressure 80 mm[Hg] Valarie Yael Other [employer] Other 08-27-2023 10:30-0500 Respiratory rate 20 /min Valarie Yael Other [employer] Other 08-27-2023 10:30-0500 SaO2% (BldA) [Mass fraction] 93 % Valarie Yael Other [employer] Other 08-27-2023 10:30-0500 Systolic blood pressure 132 mm[Hg] Valarie Yael Other [employer] Other 07-25-2023 10:39-0500 Blood Pressure Location Elliott SOLIS [facility] 07-25-2023 10:39-0500 Diastolic blood pressure 82 mm[Hg] Elliott SOLIS [facility] 07-25-2023 10:39-0500 Heart rate 76 /min Elliott SOLIS [facility] 07-25-2023 10:39-0500 SaO2% (BldA) [Mass fraction] 97 % Elliott SOLIS [facility] 07-25-2023 10:39-0500 Systolic blood pressure 138 mm[Hg] Elliott SOLIS [facility] 07-05-2023 15:44-0500 Blood Pressure Location Cadyblaine CALIX [facility] 07-05-2023 15:44-0500 Diastolic blood pressure 83 mm[Hg] Cady STANG [facility] 07-05-2023 15:44-0500 Heart rate 70 /min Cady STANG [facility] 07-05-2023 15:44-0500 SaO2% (BldA) [Mass fraction] 99 % Cady STANG [facility] 07-05-2023 15:44-0500 Systolic blood pressure 138 mm[Hg] Cady STANG [facility] 05-20-2023 10:03-0400 Blood Pressure Location Cady STANG [facility] 05-20-2023 10:03-0400 Diastolic blood pressure 80 mm[Hg] Cady STANG [facility] 05-20-2023 10:03-0400 Heart rate 75 /min Cady STANG [facility] 05-20-2023 10:03-0400 SaO2% (BldA) [Mass fraction] 98 % Cady STANG [facility] 05-20-2023 10:03-0400 Systolic blood pressure 130 mm[Hg] Cady STANG [facility] 02-26-2023 08:30-0400 Body height 165.1 cm Valarie Yael Other [employer] Other 02-26-2023 08:30-0400 Body mass index (BMI) [Ratio] 28.25 kg/m2 Valarie Yael Other [employer] Other 02-26-2023 08:30-0400 Body temperature 96.9 [degF] Valarie Yael Other [employer] Other 02-26-2023 08:30-0400 Body weight 77.02 kg Valarie Yael Other [employer] Other 02-26-2023 08:30-0400 Diastolic blood pressure 84 mm[Hg] Valarie Yael Other [employer] Other 02-26-2023 08:30-0400 Respiratory rate 20 /min Valarie Yael Other [employer] Other 02-26-2023 08:30-0400 SaO2% (BldA) [Mass fraction] Valarie Yael Other [employer] Other 02-26-2023 08:30-0400 Systolic blood pressure 138 mm[Hg] Valarie Yael Other [employer] Other 01-17-2023 10:04-0400 Diastolic blood pressure 76 mm[Hg] Poloe SALAM [facility] 01-17-2023 10:04-0400 Heart rate 70 /min Poole SALAM [facility] 01-17-2023 10:04-0400 Mean blood pressure 100 mm[Hg] Poole SALAM [facility] 01-17-2023 10:04-0400 Respiratory rate 17 /min Poole SALAM [facility] 01-17-2023 10:04-0400 SaO2% (BldA) [Mass fraction] 99 % Poole SALAM [facility] 01-17-2023 10:04-0400 Systolic blood pressure 149 mm[Hg] Poole SALAM [facility] 01-17-2023 09:55-0400 Diastolic blood pressure 80 mm[Hg] Poole SALAM [facility] 01-17-2023 09:55-0400 Heart rate 74 /min Poole SALAM [facility] 01-17-2023 09:55-0400 Mean blood pressure 97 mm[Hg] Poole SALAM [facility] 01-17-2023 09:55-0400 Respiratory rate 15 /min Poole SALAM [facility] 01-17-2023 09:55-0400 SaO2% (BldA) [Mass fraction] 99 % Poole SALAM [facility] 01-17-2023 09:55-0400 Systolic blood pressure 132 mm[Hg] Poole SALAM [facility] 01-17-2023 09:50-0400 Diastolic blood pressure 79 mm[Hg] Poole SALAM [facility] 01-17-2023 09:50-0400 Heart rate 73 /min Poole SALAM [facility] 01-17-2023 09:50-0400 Mean blood pressure 94 mm[Hg] Poole SALAM [facility] 01-17-2023 09:50-0400 Respiratory rate 13 /min Zulema FITCH [facility] 01-17-2023 09:50-0400 SaO2% (BldA) [Mass fraction] 98 % Poole SALAM [facility] 01-17-2023 09:50-0400 Systolic blood pressure 125 mm[Hg] Poole SALAM [facility] 01-17-2023 09:39-0400 Body temperature 98.24 [degF] Zulema CURRYAM [facility] 01-17-2023 08:35-0400 Blood Pressure Location Poole SALAM [facility] 01-17-2023 08:35-0400 Body temperature 98.06 [degF] Poolevenu FITCH [facility] 11-21-2022 12:41-0400 Heart rate 61 /min Martin Arango [facility] 11-21-2022 12:41-0400 SaO2% (BldA) [Mass fraction] 97 % Martin Arango [facility] 11-21-2022 12:41-0400 Diastolic blood pressure 64 mm[Hg] Martin Arango [facility] 11-21-2022 12:41-0400 Mean blood pressure 85 mm[Hg] Martin Arango [facility] 11-21-2022 12:41-0400 Systolic blood pressure 128 mm[Hg] Martin Arango [facility] 11-21-2022 12:41-0400 Body temperature 96.98 [degF] Martin Arango [facility] 11-21-2022 12:40-0400 Respiratory rate 16 /min Martin Arango [facility] 11-21-2022 11:09-0400 Heart rate 66 /min Martin Arango [facility] 11-21-2022 11:09-0400 SaO2% (BldA) [Mass fraction] 100 % Martin Arango [facility] 11-21-2022 11:09-0400 Diastolic blood pressure 68 mm[Hg] Martin Arango [facility] 11-21-2022 11:09-0400 Mean blood pressure 84 mm[Hg] Martin Arango [facility] 11-21-2022 11:09-0400 Systolic blood pressure 116 mm[Hg] Martin Arango [facility] 11-21-2022 11:09-0400 Body temperature 98.06 [degF] Martin Arango [facility] 11-21-2022 11:08-0400 Respiratory rate 14 /min Martin Arango [facility] 11-21-2022 10:55-0400 Body temperature 97.16 [degF] Martin Arango [facility] 11-21-2022 10:55-0400 Diastolic blood pressure 85 mm[Hg] Martin Arango [facility] 11-21-2022 10:55-0400 Heart rate 65 /min Martin Arango [facility] 11-21-2022 10:55-0400 Mean blood pressure 98 mm[Hg] Martin Arango [facility] 11-21-2022 10:55-0400 Respiratory rate 18 /min Martin Arango [facility] 11-21-2022 10:55-0400 SaO2% (BldA) [Mass fraction] 98 % Martin Arango [facility] 11-21-2022 10:55-0400 Systolic blood pressure 123 mm[Hg] Martin Arango [facility] 11-21-2022 10:45-0400 Mean blood pressure 84 mm[Hg] Martin Arango [facility] 11-21-2022 10:45-0400 Respiratory rate 15 /min Martin Arango [facility] 11-21-2022 10:30-0400 Mean blood pressure 73 mm[Hg] Martin Arango [facility] 11-21-2022 10:30-0400 Respiratory rate 13 /min Martin Arango [facility] 11-21-2022 10:15-0400 Respiratory rate 1 /min Martin Arango [facility] 11-21-2022 07:43-0400 Mean blood pressure 100 mm[Hg] Martin Arango [facility] 11-21-2022 07:43-0400 Heart rate 62 /min Martin Arango [facility] 10-30-2022 15:25-0400 Blood Pressure Location Elliott Solis [facility] 10-30-2022 15:25-0400 Diastolic blood pressure 80 mm[Hg] Elliott Solis [facility] 10-30-2022 15:25-0400 Heart rate 70 /min Elliott Solis [facility] 10-30-2022 15:25-0400 SaO2% (BldA) [Mass fraction] 95 % Elliott Parvez [facility] 10-30-2022 15:25-0400 Systolic blood pressure 126 mm[Hg] Elliott Solis [facility] 10-29-2022 14:56-0400 Diastolic blood pressure 86 mm[Hg] Inessa Nicci [facility] 10-29-2022 14:56-0400 Mean blood pressure 103 mm[Hg] Inessa Nicci [facility] 10-29-2022 14:56-0400 Systolic blood pressure 138 mm[Hg] Inessa Nicci [facility] 10-29-2022 14:50-0400 Blood Pressure Location Inessa Nicci [facility] 10-29-2022 14:50-0400 Body temperature 97.88 [degF] Inessa Nicci [facility] 10-29-2022 14:50-0400 Diastolic blood pressure 86 mm[Hg] Inessa Nicci [facility] 10-29-2022 14:50-0400 Heart rate 85 /min Inessa Nicci [facility] 10-29-2022 14:50-0400 Systolic blood pressure 141 mm[Hg] Inessa Nicci [facility] 10-20-2022 10:33-0500 Body temperature 95.9 [degF] Santos Landry [facility] 10-20-2022 10:33-0500 Diastolic blood pressure 73 mm[Hg] Santos Landry [facility] 10-20-2022 10:33-0500 Heart rate 62 /min Santos Landry [facility] 10-20-2022 10:33-0500 Respiratory rate 18 /min Santos Frantz [facility] 10-20-2022 10:33-0500 SaO2% (BldA) [Mass fraction] 100 % Santos Landry [facility] 10-20-2022 10:33-0500 Systolic blood pressure 151 mm[Hg] Santos Landry [facility] 10-12-2022 13:06-0500 Body temperature 97.7 [degF] Santos Landry [facility] 10-12-2022 13:06-0500 Diastolic blood pressure 71 mm[Hg] Santos Landry [facility] 10-12-2022 13:06-0500 Heart rate 68 /min Santos Landry [facility] 10-12-2022 13:06-0500 Respiratory rate 18 /min Santos Landry [facility] 10-12-2022 13:06-0500 SaO2% (BldA) [Mass fraction] 98 % Santos Landry [facility] 10-12-2022 13:06-0500 Systolic blood pressure 126 mm[Hg] Santos Frantz [facility] 10-02-2022 12:31-0500 Blood Pressure Location Inessa Grajeda [facility] 10-02-2022 12:31-0500 Diastolic blood pressure 52 mm[Hg] Inessa Grajeda [facility] 10-02-2022 12:31-0500 Heart rate 56 /min Inessa Grajeda [facility] 10-02-2022 12:31-0500 SaO2% (BldA) [Mass fraction] 100 % Inessa Gatesz [facility] 10-02-2022 12:31-0500 Systolic blood pressure 136 mm[Hg] Inessa Gatesz [facility] 09-06-2022 10:09-0500 Blood Pressure Location Poole SALAM [facility] 09-06-2022 10:09-0500 Diastolic blood pressure 71 mm[Hg] Poole SALAM [facility] 09-06-2022 10:09-0500 Heart rate 70 /min Poole SALAM [facility] 09-06-2022 10:09-0500 Respiratory rate 22 /min Poole SALAM [facility] 09-06-2022 10:09-0500 Systolic blood pressure 145 mm[Hg] Poole SALAM [facility] 09-06-2022 10:05-0500 Blood Pressure Location Poole SALAM [facility] 09-06-2022 10:05-0500 Diastolic blood pressure 66 mm[Hg] Poole SALAM [facility] 09-06-2022 10:05-0500 Heart rate 66 /min Poole SALAM [facility] 09-06-2022 10:05-0500 Respiratory rate 20 /min Poole SALAM [facility] 09-06-2022 10:05-0500 SaO2% (BldA) [Mass fraction] 100 % Poole SALAM [facility] 09-06-2022 10:05-0500 Systolic blood pressure 94 mm[Hg] Poole SALAM [facility] 09-06-2022 10:00-0500 Heart rate 59 /min Poole SALAM [facility] 09-06-2022 10:00-0500 Respiratory rate 17 /min Poole SALAM [facility] 09-06-2022 10:00-0500 Systolic blood pressure 90 mm[Hg] Poole SALAM [facility] 09-06-2022 09:55-0500 SaO2% (BldA) [Mass fraction] 100 % Poole SALAM [facility] 09-06-2022 09:40-0500 Body temperature 96.62 [degF] Poole SALAM [facility] 09-06-2022 07:35-0500 Body temperature 96.62 [degF] Poole SALAM [facility] 07-05-2022 10:00-0500 Body height 165.1 cm Valarie Yael Other [employer] Other 07-05-2022 10:00-0500 Body mass index (BMI) [Ratio] 28.95 kg/m2 Valarie Yael Other [employer] Other 07-05-2022 10:00-0500 Body temperature 97 [degF] Valarie Yael Other [employer] Other 07-05-2022 10:00-0500 Body weight 78.93 kg Valarie Yael Other [employer] Other 07-05-2022 10:00-0500 Diastolic blood pressure 77 mm[Hg] Valarie Yael Other [employer] Other 07-05-2022 10:00-0500 Respiratory rate 20 /min Valarie Yael Other [employer] Other 07-05-2022 10:00-0500 SaO2% (BldA) [Mass fraction] Valarie Yael Other [facility] [employer] Other 07-05-2022 10:00-0500 Systolic blood pressure 137 mm[Hg] Valarie Yael Other [facility] [employer] Other 05-15-2022 13:22-0400 Diastolic blood pressure 65 mm[Hg] Cady STANG [facility] 05-15-2022 13:22-0400 Mean blood pressure 85 mm[Hg] Cady STANG [facility] 05-15-2022 13:22-0400 Systolic blood pressure 126 mm[Hg] Cady STANG [facility] 05-15-2022 13:08-0400 Blood Pressure Location Cady STANG [facility] 05-15-2022 13:08-0400 Diastolic blood pressure 88 mm[Hg] Cady STANG [facility] 05-15-2022 13:08-0400 Heart rate 62 /min Cady STANG [facility] 05-15-2022 13:08-0400 Respiratory rate 18 /min Cady STANG [facility] 05-15-2022 13:08-0400 SaO2% (BldA) [Mass fraction] 100 % Cady STANG [facility] 05-15-2022 13:08-0400 Systolic blood pressure 140 mm[Hg] Cadyblaine KLEING [facility] 03-20-2022 13:16-0400 Diastolic blood pressure 72 mm[Hg] Elliott Solis [facility] 03-20-2022 13:16-0400 Heart rate 73 /min Elliott Solis [facility] 03-20-2022 13:16-0400 Mean blood pressure 87 mm[Hg] Elliott Solis [facility] 03-20-2022 13:16-0400 Respiratory rate 18 /min Elliott Solis [facility] 03-20-2022 13:16-0400 Systolic blood pressure 118 mm[Hg] Elliott Solis [facility] 03-06-2022 10:27-0400 Blood Pressure Location Cadyblaine KLEING [facility] 03-06-2022 10:27-0400 Diastolic blood pressure 78 mm[Hg] Cady STANG [facility] 03-06-2022 10:27-0400 Heart rate 68 /min Cady STANG [facility] 03-06-2022 10:27-0400 Respiratory rate 18 /min Cady STANG [facility] 03-06-2022 10:27-0400 SaO2% (BldA) [Mass fraction] 98 % Cady STANG [facility] 03-06-2022 10:27-0400 Systolic blood pressure 137 mm[Hg] Cady STANG [facility] 01-11-2022 15:06-0400 Diastolic blood pressure 83 mm[Hg] Zulema FITCH [facility] 01-11-2022 15:06-0400 Heart rate 61 /min Zulema FITCH [facility] 01-11-2022 15:06-0400 Systolic blood pressure 136 mm[Hg] Poolevenu CURRYAM [facility] 12-11-2021 12:00-0400 Blood Pressure Location Donaldo PEARSON [facility] 12-11-2021 12:00-0400 Diastolic blood pressure 75 mm[Hg] Donaldo PEARSON [facility] 12-11-2021 12:00-0400 Heart rate 78 /min Donaldo PEARSON [facility] 12-11-2021 12:00-0400 Systolic blood pressure 107 mm[Hg] Donaldo PEARSON [facility] Encounters Encounter Date Encounter Type Care Provider Facility Start: 05-04-2025 ambulatory Donaldo Wilder ty:[facility] Start: 04-26-2025 End: 04-26-2025 ambulatory Robert Giron DO Work Phone: [facility] Work Phone: Start: 04-26-2025 End: 04-26-2025 Patient encounter procedure Valarie Brink APRN [facility] Work Phone: Start: 04-25-2025 End: 04-26-2025 Refill Robert G Furlong DO Work Phone: [facility] Comment on above: Complex tear of medi al meniscus of left knee, sequela Start: 04-21-2025 End: 04-22-2025 Refill Robert Carmenlong DO Work Phone: [facility] Comment on above: Anxiety Start: 04-20-2025 Encounter for other preprocedural examination [facility] Start: 04-20-2025 End: 04-20-2025 ambulatory [facility] Facility:[facility] Start: 04-18-2025 End: 04-20-2025 Refill Robert Carmenlong DO Work Phone: [facility] Comment on above: Complex tear of medi al meniscus of left knee, sequela Start: 04-15-2025 End: 04-15-2025 Refill Robert Carmenlong DO Work Phone: [facility] Comment on above: Type 2 diabetes mouna itus with diabetic mononeuropathy, without long-term current use of insulin ([facility] Start: 04-13-2025 End: 04-13-2025 Patient encounter procedure Valarie Brink APRN ACNP-BC -CT [facility] [place] Work Phone: Start: 04-13-2025 End: 04-13-2025 ambulatory Robert Worthyng DO Work Phone: [facility] Work Phone: Start: 04-12-2025 End: 04-12-2025 Refill Amaris Hilton CMA [facility] Comment on above: Complex tear of medi al meniscus of left knee, sequela Start: 04-08-2025 End: 04-08-2025 Refill Robert Carmenlong DO Work Phone: [facility] Start: 04-06-2025 ambulatory [facility] Facil ity:[facility] Start: 04-04-2025 End: 04-05-2025 Refill Robert G Furlong DO Work Phone: [facility] Comment on above: Complex tear of medi al meniscus of left knee, sequela Start: 03-28-2025 End: 03-29-2025 Refill Robert G Furlong DO Work Phone: [facility] Comment on above: Complex tear of medi al meniscus of left knee, sequela Start: 03-23-2025 End: 03-23-2025 Telephone encounter [facility] Comment on above: surgery clearance Start: 03-22-2025 End: 03-22-2025 Refill Robert G Furlong DO Work Phone: [facility] Start: 03-21-2025 End: 03-22-2025 Refill Robert G Furlong DO Work Phone: [facility] Comment on above: Complex tear of medi al meniscus of left knee, sequela Start: 03-19-2025 End: 03-19-2025 ambulatory XXXX NONE [place] Start: 03-17-2025 End: 03-17-2025 ambulatory Sofiya Quintanaa Facility:[facility] Start: 03-17-2025 End: 03-17-2025 Patient encounter procedure Sofiya Villa [facility] Start: 03-16-2025 End: 03-16-2025 Office outpatient visit 25 minutes Robert G Furlong DO Work Phone: [facility] Comment on above: Lumbosacral radiculo arnaldo at L5 (Primary Dx); Osteoarthritis, unspecified osteoarthritis type, unspecified site; Diabetes mellitus without complication ([facility]); Chronic obstructive pulmonary disease, unspecified COPD type ([facility]); Anxiety Start: 03-16-2025 End: 03-16-2025 ambulatory ROBERT GIRON [facility] Start: 03-15-2025 End: 03-16-2025 Refill Robert Giron DO Work Phone: [facility] Comment on above: Complex tear of medi al meniscus of left knee, sequela Start: 03-12-2025 End: 03-12-2025 Refill Robert Giron DO Work Phone: [facility] Start: 03-10-2025 End: 03-10-2025 Office outpatient new 30 minutes Maya Lynn PERSONAL LINES UNDERWRITER-CORONARY CARE UNIT NURSE Work Phone: [facility] Comment on above: Incontinence of fece s with fecal urgency (Primary Dx); Altered bowel habits; Polyp of colon, unspecified part of colon, unspecified type Start: 03-10-2025 End: 03-10-2025 Orders Only Not In System Ref Prov [facility] Start: 03-09-2025 End: 03-09-2025 Bamboo flowshemalatha Lerma DO Work Phone: [facility] Start: 03-09-2025 End: 03-09-2025 Bamboo flowshemalatha Lerma DO Work Phone: [facility] Start: 03-09-2025 End: 03-09-2025 Office outpatient visit 40 minutes Jr. Jim Lerma DO Work Phone: [facility] Comment on above: Arthritis of left kn ee (Primary Dx); Acute pain of left knee Start: 03-09-2025 End: 03-09-2025 ambulatory JIM WELLS Not Available Start: 03-04-2025 End: 03-04-2025 Bamboo flowsheet Martin Arango DPM Work Phone: [facility] Start: 03-04-2025 End: 03-04-2025 Bamboo flowsheet Martin Arango DPM Work Phone: [facility] Start: 03-04-2025 End: 03-04-2025 Office outpatient visit 15 minutes Martin Arango DPM Work Phone: [facility] Comment on above: Mild ankle sprain, r ight, initial encounter (Primary Dx); Diabetes 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 polyneuropathy, with long-term current use of insulin ([facility]); Contracture of right ankle Start: 03-04-2025 End: [...] Bamboo flowsheet Carlos Sanchez MD Work Phone: [facility] NEUROLOG[facility] Start: 02-25-2025 End: 02-25-2025 Bamboo flowsheet Carlos Sanchez MD Work Phone: [facility] Start: 02-24-2025 End: 02-24-2025 Bamboo flowsheet Shmuel Levine LANCE CREWMEMBER/MLRS SERGEANT [facility] Start: 02-24-2025 End: 02-24-2025 Bamboo flowsheet Shmuel Levine LANCE CREWMEMBER/MLRS SERGEANT [facility] Start: 02-24-2025 End: 02-24-2025 ambulatory Shmuel Levine LANCE CREWMEMBER/MLRS SERGEANT [facility] Comment on above: Mild ankle sprain, r ight, initial encounter (Primary Dx) Diabetes mellitus wi thout complication ([facility]) Start: 02-24-2025 End: 02-24-2025 Office outpatient visit 25 minutes Robert Giron DO Work Phone: [facility] Comment on above: Chest wall pain (Anastasiia ros Dx); Complex tear of medial meniscus of left knee, sequela; Polyp of colon, unspecified part of colon, unspecified type; Diabetes mellitus without complication ([facility]) Start: 02-24-2025 End: 02-24-2025 ambulatory ROBERT GIRON [facility] Start: 02-22-2025 End: 02-22-2025 ambulatory Andria Carter LANCE CREWMEMBER/MLRS SERGEANT [facility] Comment on above: Mild ankle sprain, r ight, initial encounter (Primary Dx) Start: 02-22-2025 End: 02-22-2025 Bamboo flowsheet Andria Brink LANCE CREWMEMBER/MLRS SERGEANT [facility] Start: 02-22-2025 End: 02-22-2025 Bamboo flowsheet Andria Brink LANCE CREWMEMBER/MLRS SERGEANT [facility] Start: 02-15-2025 End: 02-15-2025 Bamboo flowsheet Andria Brink LANCE CREWMEMBER/MLRS SERGEANT [facility] Start: 02-15-2025 End: 02-15-2025 Bamboo flowsheet Andria Brink LANCE CREWMEMBER/MLRS SERGEANT [facility] Start: 02-15-2025 End: 02-15-2025 ambulatory Andria Brink LANCE CREWMEMBER/MLRS SERGEANT [facility] Comment on above: Mild [...] 02-08-2025 End: 02-08-2025 Telephone encounter Andria Carter LANCE CREWMEMBER/MLRS SERGEANT [facility] Comment on above: Cx PT today Start: 02-06-2025 End: 02-09-2025 Refill Robert Giron DO Work Phone: [facility] Start: 02-04-2025 End: 02-04-2025 Bamboo flowsheet Martin Arango DPM Work Phone: [facility] Start: 02-04-2025 End: 02-04-2025 Bamboo flowsheet Martin [...] Start: 02-04-2025 End: 02-04-2025 ambulatory Andria Carter PTA [facility] Comment on above: Contusion of right s houlder, subsequent encounter (Primary Dx); Right shoulder pain, unspecified chronicity Start: 01-29-2025 End: 02-01-2025 Telephone encounter Andria Carter PTA [facility] Comment on above: Cx PT today Downey neuroma, righ t Start: 01-25-2025 End: 01-25-2025 Refill Robert G Furlong DO Work Phone: [facility] Comment on above: Downey neuroma, righ t Contusion of right s houlder, subsequent encounter (Primary Dx); Right shoulder pain, unspecified chronicity Start: 01-21-2025 End: 01-21-2025 Lab Drop off SHERI JIMENES [facility] Start: 01-21-2025 End: 01-21-2025 Patient encounter procedure SHERI JIMENES [facility] Start: 01-21-2025 End: 01-21-2025 Refill Simi Petty CMA [facility] Comment on above: Anxiety Start: 01-15-2025 End: 01-15-2025 Refill Robert G Furlong DO Work Phone: [...] PODIATRY Start: 01-07-2025 End: 01-07-2025 ambulatory MARTIN ARANGO Not Available Start: 01-05-2025 End: 01-05-2025 ambulatory SHERI JIMENES Facility:[facility] Start: 01-05-2025 End: 01-05-2025 Patient encounter procedure SHERI JIMENES [facility] Start: 01-02-2025 End: 01-02-2025 Telephone encounter Martin Arango DPM Work Phone: [facility] Start: 01-02-2025 End: 01-02-2025 ambulatory Robert Giron Facility:[facility] Start: 01-01-2025 End: 01-01-2025 Telephone encounter Martin Arango DPM Work Phone: [facility] Start: 12-29-2024 End: 01-05-2025 Telephone encounter Gricelda Hammond PT [facility] Comment on above: PT Initial Eval; Larry l Back Start: 12-25-2024 End: 12-25-2024 ambulatory [facility] Start: 12-18-2024 End: 12-22-2024 [facility] Work Phone: [facility] Comment on above: Anxiety Start: 12-17-2024 End: 12-17-2024 Bamboo flowsheet Martin rAango DPM Work Phone: [facility] Start: 12-17-2024 End: 12-17-2024 Bamboo flowsheet Martin Arango DPM Work Phone: [facility] Start: 12-17-2024 End: 12-17-2024 Office outpatient visit 25 minutes Martin Arango DPM Work Phone: [facility] Comment on above: Downey neuroma, rigrm t (Primary Dx); Acquired deformity of right toe; Paronychia, toe, right; Diabetes 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 polyneuropathy, with long-term current use of insulin ([facility]) Start: 12-17-2024 End: 12-17-2024 ambulatory MARTIN ARANGO Not Available Start: 12-15-2024 End: 12-15-2024 Office outpatient visit 25 minutes Robert Giron DO Work Phone: [facility] Comment on above: Anxiety (Primary Dx) ; Diabetes mellitus without complication ([facility]); Enthesopathy of elbow Start: 12-15-2024 End: 12-15-2024 ambulatory [facility] Start: 12-15-2024 End: 12-15-2024 Office outpatient visit 25 minutes Reyes Borges PA Work Phone: [facility] Comment on above: Cervical spondylosis without myelopathy (Primary Dx) Start: 12-15-2024 End: 12-15-2024 ambulatory REYES BORGES [facility] Start: 12-15-2024 End: 12-15-2024 ambulatory [facility] Start: 12-03-2024 End: 12-03-2024 Bamboo flowsheet Martin Arango DPM Work Phone: [facility] Start: 12-03-2024 End: 12-03-2024 Bamboo flowsheet Martin Arango DPM Work Phone: [facility] Start: 12-03-2024 End: 12-03-2024 Office outpatient visit 15 minutes Martin Arango DPM Work Phone: [facility] Comment on above: Downey neuroma, righ t (Primary Dx); Diabetes 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 polyneuropathy, with long-term current use of insulin ([facility]); Acquired deformity of right toe; Paronychia, toe, right Start: 12-03-2024 End: 12-03-2024 ambulatory MARTIN ARANGO Not Available Start: 11-19-2024 End: 11-19-2024 Bamboo flowsheet Martin Arango DPM Work Phone: [facility] Start: 11-19-2024 End: 11-19-2024 Bamboo flowsheet Martin Arango DPM Work Phone: [facility] Start: 11-19-2024 End: 11-19-2024 Office outpatient visit 15 minutes Martin Arango DPM Work Phone: [facility] Comment on above: 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); Diabetes 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 polyneuropathy, with long-term current use of insulin ([facility]); Downey neuroma, right Start: 11-19-2024 End: 11-19-2024 ambulatory MARTIN ARANGO Not Available Start: 11-17-2024 End: 11-18-2024 Refill Robert Giron DO Work Phone: [facility] Start: 11-13-2024 End: 11-13-2024 Patient encounter procedure Robert Giron DO Work Phone: [facility] Work Phone: Start: 11-13-2024 End: 11-13-2024 Refill Carlos Sanchez MD Work Phone: [facility] 210 Comment on above: Intractable chronic migraine without aura and without status migrainosus (CMS/HCC) (Primary Dx) Start: 11-11-2024 End: 11-11-2024 Bamboo flowsheet Carlos Sanchez MD Work Phone: [facility] Start: 11-11-2024 End: 11-11-2024 Bamboo flowsheet Carlos Sanchez MD Work Phone: [facility] Start: 11-11-2024 End: 11-11-2024 Office outpatient visit 25 minutes Carlos Sanchez MD Work Phone: [facility] Comment on above: Intractable chronic migraine without aura and without status migrainosus (CMS/HCC) (Primary Dx) Start: 11-11-2024 End: 11-11-2024 ambulatory CARLOS SANCHEZ Not Available Start: 11-09-2024 End: 11-10-2024 Telephone encounter [facility] Start: 11-05-2024 End: 11-05-2024 ambulatory HIRAM Jigar [facility] Start: 11-03-[address] [facility] Start: 10-26-2024 End: 10-26-2024 ambulatory [facility] Start: 10-26-2024 End: 10-26-2024 Office outpatient visit 25 minutes Robert Giron DO Work Phone: [facility] Comment on above: Peripheral arterial disease (CMS-HCC) (Primary Dx); Anxiety; Medication monitoring encounter; Contusion of right hip, initial encounter; Candidal intertrigo; Overweight Start: 10-26-2024 End: 10-26-2024 ambulatory ROBERT GIRON [facility] Start: 10-22-2024 End: 10-27-2024 Refill Robert Giron DO Work Phone: [facility] Comment on above: Type 2 diabetes mouna itus with hyperglycemia, without long-term current use of insulin ([facility]) Lumbar radiculopathy (Primary Dx); PHN (postherpetic neuralgia) ([facility]); Diabetic peripheral neuropathy ([facility]) Start: 10-22-2024 End: 10-27-2024 [facility] Comment on above: Med Refill Start: 10-16-2024 End: 10-16-2024 Refill Robert Giron DO Work Phone[facility] Start: 10-16-2024 End: 10-16-2024 Refill Robert Giron DO Work Phone[facility] Start: 10-12-2024 End: 10-12-2024 ambulatory [facility] Work Phone: Start: 10-12-2024 End: 10-12-2024 [facility] Work Phone: Start: 10-09-2024 End: 10-09-2024 Orders Only Robert Giron DO Work Phone: [facility] Comment on above: Pain in left leg (Pr imary Dx) Start: 09-29-2024 End: 09-29-2024 Clinisync Result Encounter Generic External Data Provider [facility] External Department Unsolicited Start: 09-29-2024 End: 09-29-2024 Clinisync Result Encounter Generic External Data Provider [facility] External Department Unsolicited Start: 09-28-2024 ambulatory [facility] Start: 09-24-2024 End: 09-29-2024 Telephone encounter Shmuel Memo LANCE CREWMEMBER/MLRS SERGEANT [facility] Comment on above: Severe Migraine; FU Start: 09-23-2024 End: 09-23-2024 Orders Only Robert Giron DO Work Phone: [facility] Comment on above: Diabetes mellitus wi thout complication ([facility]) (Primary Dx) Left knee pain, unsp ecified chronicity (Primary Dx); Arthritis of left knee; Chronic pain of left knee Start: 09-22-2024 End: 09-22-[address] [facility] Start: 09-19-2024 End: 09-21-2024 Refill Robert Giron DO Work Phone: [facility] Comment on above: Type 2 diabetes mouna itus with hyperglycemia, without long-term current use of insulin ([facility]) Start: 09-18-2024 End: 09-19-2024 Refill Robert Giron DO Work Phone: [facility] Start: 09-17-2024 End: 09-17-2024 ambulatory Gricelda Hammond PT [facility] Comment on above: Left knee pain, unsp ecified chronicity (Primary Dx); Arthritis of left knee; Chronic pain of left knee Start: 09-16-2024 End: 09-16-2024 Bamboo flowsheet Nikki Vergara VELV[employer] C[employer]TER Work Phone: [facility] Start: 09-16-2024 End: 09-16-2024 Bamboo flowsheet Nikki Vergara [employer]TER Work Phone: [facility] Start: 09-16-2024 End: 09-16-2024 Office outpatient visit 25 minutes Nikki Vergara [employer] C[employer]TER Work Phone: [facility] Comment on above: CELINE (obstructive sle ep apnea) (Primary Dx); Chronic migraine without aura without status migrainosus, not intractable ([facility]); Cognitive decline; Lumbar radiculopathy Start: 09-16-2024 End: 09-16-2024 ambulatory NIKKI VERGARA Not Available Start: 09-15-2024 End: 09-15-2024 ambulatory ROBERT G [facility] Start: 09-15-2024 End: 09-15-2024 Office outpatient visit 25 minutes Robert Giron DO Work Phone: [facility] Comment on above: Anxiety (Primary Dx) ; Diabetes mellitus without complication ([facility]); Essential hypertension; Mixed hyperlipidemia; Medication management; Chronic obstructive pulmonary disease, unspecified COPD type ([facility]); Abnormality of gait and mobility; Current smoker Start: 09-15-2024 End: 09-15-2024 ambulatory ROBERT G [facility] Start: 09-15-2024 End: 09-15-2024 Telephone encounter Shmuel Levine LANCE CREWMEMBER/MLRS SERGEANT [facility] Comment on above: CX PT 09/15 Start: 09-10-2024 End: 09-10-2024 Bamboo flowsheet Shmuel Levine LANCE CREWMEMBER/MLRS SERGEANT [facility] Start: 09-10-2024 End: 09-10-2024 Bamboo flowsheet Shmuel Levine LANCE CREWMEMBER/MLRS SERGEANT [facility] Start: 09-10-2024 End: 09-10-2024 ambulatory Shmuel Levine LANCE CREWMEMBER/MLRS SERGEANT [facility] Comment on above: Left knee pain, unsp ecified chronicity (Primary Dx) Start: 09-04-2024 End: 09-04-2024 Telephone encounter Carlotta Melton LANCE CREWMEMBER/MLRS SERGEANT [facility] Comment on above: re: PT today Start: 09-03-2024 End: 09-03-2024 Telephone encounter Gricelda Hammond PT [facility] Comment on above: CX PT / RS for 09/04 Start: 09-01-2024 End: 09-01-2024 Bamboo flowsheet Shmuel Levine LANCE CREWMEMBER/MLRS SERGEANT [facility] Start: 09-01-2024 End: 09-01-2024 Bamboo flowsheet Shmuel Levine LANCE CREWMEMBER/MLRS SERGEANT [facility] Start: 09-01-2024 End: 09-01-2024 ambulatory Shmuel Levine LANCE CREWMEMBER/MLRS SERGEANT [facility] Comment on above: Left [...] Start: 08-26-2024 End: 08-26-2024 ambulatory XXXX NONE [place] Start: 08-26-2024 End: 08-26-2024 Patient encounter procedure Cady Alva [facility] Start: 08-21-2024 End: 08-21-2024 Orders Only Robert Giron DO Work Phone: [facility] Comment on above: Diabetes mellitus wi thout complication ([facility]) (Primary Dx) Start: 08-19-2024 End: 08-19-2024 ambulatory [facility] Start: 08-17-2024 End: 08-17-2024 ambulatory [facility] Start: 08-13-2024 End: 08-13-2024 Patient encounter procedure Kehinde Davalos [facility] Start: 08-13-2024 End: 08-13-2024 Refill Robert Giron DO Work Phone: [facility] Start: 08-10-2024 End: 08-10-2024 Bamboo flowsheet Carlos Sanchez MD Work Phone: [facility] Start: 08-10-2024 End: 08-10-2024 Bamboo flowsheet Carlos Sanchez MD Work Phone: [facility] Start: 08-10-2024 End: 08-10-2024 Office outpatient visit 25 minutes Carlos Sanchez MD Work Phone: [facility] SWS NEUR Comment on above: Attention deficit hy peractivity disorder (ADHD), predominantly inattentive type (CMS/HCC) (Primary Dx); Intractable chronic migraine without aura and without status migrainosus (CMS/HCC) Start: 08-10-2024 End: 08-10-2024 Orders Only Jena Vaz NP Work Phone: [facility] 210 Comment on above: Attention deficit hy peractivity disorder (ADHD), predominantly inattentive type (CMS/HCC) (Primary Dx); Fibromyalgia; Anxiety Start: 08-04-2024 End: 08-04-2024 Telephone encounter Carlos Sanchez MD Work Phone: [facility] 210 Start: 08-03-2024 End: 08-03-[address] [facility] Start: 07-29-2024 End: 07-29-2024 Bamboo flowsheet David Wilfredo DO Work Phone: [facility] Start: 07-29-2024 End: 08-06-2024 Bamboo flowsheet David Wilfredo DO Work Phone: [facility] Start: 07-29-2024 End: 08-06-2024 Clinisync Result Encounter David Wilferdo DO Work Phone: [facility] External Department Unsolicited Start: 07-29-2024 End: 07-29-2024 Patient encounter procedure David Wilfredo DO Work Phone: [facility] Start: 07-29-2024 End: 07-29-2024 Periodic preventive med est patient 40-64yrs David Wilfredo DO Work Phone: [facility] Comment on above: Well woman exam with routine gynecological exam; H/O: hysterectomy; Osteoporosis, post-menopausal (CMS/HCC) Start: 07-29-2024 End: 07-29-2024 ambulatory DAVID WILFREDO Not Available Start: 07-27-2024 End: 07-27-2024 ambulatory [facility] Start: 07-07-2024 End: 07-07-2024 Emergency department patient visit ROBERT Jigar [facility] Start: 06-28-2024 End: 06-28-2024 Emergency department patient visit ROBERT Kimball [facility] Start: 06-18-2024 End: 06-18-2024 Office outpatient visit 15 minutes Martin Arango DPM Work Phone: [facility] Comment on above: 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); Diabetes 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 polyneuropathy, with long-term current use of insulin ([facility]) Start: 06-18-2024 End: 06-18-2024 ambulatory MARTIN ARANGO Not Available Start: 06-18-2024 End: 06-18-2024 Bamboo flowsheet Martin Arango DPM Work Phone: [facility] Start: 06-18-2024 End: 06-18-2024 Bamboo flowsheet Martin Arango DPM Work Phone: [facility] Start: 06-16-[address] [facility] Start: 06-15-2024 End: 06-15-2024 Telephone encounter Karlos Mace DO Work Phone: [facility] ORTHO Comment on above: L knee pain Start: 06-15-2024 End: 06-15-2024 ambulatory [facility] Start: 06-11-2024 End: 06-11-2024 ambulatory BRANDON SIMPSON [facility] Start: 06-09-2024 End: 06-09-2024 Telephone encounter Pastora Alcantara DO Work Phone: [facility] Comment on above: pain Start: 06-05-2024 End: 06-05-2024 ambulatory [facility] Start: 06-05-2024 End: 06-05-2024 ambulatory [facility] Start: 05-28-2024 End: 05-28-2024 Telephone encounter Amaris Huynh MA [facility] Start: 05-20-2024 End: 05-20-2024 ambulatory ALEXSANDRA DUNN [facility] Start: 05-18-2024 End: 05-18-2024 ambulatory DUANE Young [facility] Start: 05-14-2024 End: 05-14-2024 Bamboo flowsheet Martin Arango DPM Work Phone: [facility] Start: 05-14-2024 End: 05-14-2024 Bamboo [...] use of insulin ([facility]) Start: 05-14-2024 End: 05-14-2024 ambulatory MARTIN ARANGO Not Available Start: 05-11-2024 End: 05-11-2024 Telephone encounter Carlos Sanchez MD Work Phone: [facility] Start: 05-05-2024 End: 05-15-2024 Telephone encounter Pastora Alcantara DO Work Phone: [facility] ORTHOPAEDICS Start: 05-04-2024 End: 05-04-2024 ambulatory [facility] Start: 04-30-2024 End: 04-30-2024 ambulatory [facility] Start: 04-27-2024 End: 04-27-2024 ambulatory CARLOS SANCHEZ Not Available Start: 04-27-2024 End: 04-27-2024 Bamboo flowsheet Carlos Sanchez MD Work Phone: [facility] Start: 04-27-2024 End: 04-27-2024 Bamboo flowshemalatha Sanchez MD Work Phone: [facility] Start: 04-27-2024 End: 04-27-2024 Office outpatient visit 25 minutes Carlos Sanchez MD Work Phone: [facility] Comment on above: Nausea and vomiting, unspecified vomiting type (Primary Dx); Intractable chronic migraine without aura and without status migrainosus (CMS/HCC); Diabetic peripheral neuropathy (CMS/HCC) Start: 04-23-2024 End: 04-23-2024 Bamboo flowsheet Martin Arango DPM Work Phone: [facility] CI PODIATRY Start: 04-23-2024 End: 04-23-2024 Bamboo flowsheet Martin Arango DPM Work Phone: [facility] CI PODIATRY Start: 04-23-2024 End: 04-23-2024 ambulatory MARTIN ARANGO Not Available Start: 04-23-2024 End: 04-23-2024 Office outpatient visit 15 minutes Martin Arango DPM Work Phone: [facility] PODIATRY Comment on above: Capsulitis of metata rsophalangeal (MTP) joint of right foot (Primary Dx); Paronychia, toe, right; Paronychia of toe of left foot; Toe pain, left; Toe pain, right; Diabetes 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 polyneuropathy, with long-term current use of insulin (CMS/[facility]) Start: 04-23-2024 End: 04-23-2024 ambulatory MARTIN ARANGO Not Available Start: 04-21-2024 End: 04-21-2024 Office outpatient visit 15 minutes Pastora Alcantara DO Work Phone: [facility] Comment on above: Chronic pain of left knee; Primary osteoarthritis of left knee; Complex tear of medial meniscus of left knee as current injury, initial encounter Start: 04-21-2024 End: 04-21-2024 ambulatory PASTORA ALCANTARA Not Available Start: 04-15-2024 End: 04-15-2024 Bamboo flowsheet Galo Rosa Florentino PT Work Phone: [facility] Start: 04-15-2024 End: 04-15-2024 Bamboo flowsheet Galo Rosa Florentino PT Work Phone: [facility] Start: 04-15-2024 End: 04-15-2024 ambulatory Galo Lee Florentino PT Work Phone: [facility] Comment on above: Arthritis of left kn ee (Primary Dx); Chronic pain of left knee Start: 04-14-2024 End: 04-14-2024 Bamboo flowsheet Pastora Alcantara DO Work Phone: [facility] Start: 04-14-2024 End: 04-14-2024 Bamboo flowsheet Pastora Alcantara DO Work Phone: [facility] Start: 04-14-2024 End: 04-14-2024 Office outpatient visit 15 minutes Pastora Alcantara DO Work Phone: [facility] Comment on above: Left wrist pain (Anastasiia ros Dx); Left knee pain, unspecified chronicity; Ulnar neuropathy at elbow of left upper extremity Start: 04-14-2024 End: 04-14-2024 ambulatory PASTORA ALCANTARA Not Available Start: 04-13-2024 End: 04-13-2024 Bamboo flowsheet Cj Zepeda [employer] Work Phone: [facility] Start: 04-13-2024 End: 04-13-2024 Bamboo flowsheet Cj Talbot Apling [employer] Work Phone: [facility] Start: 04-13-2024 End: 04-13-2024 Office outpatient visit 15 minutes Cj Zepeda [employer] Work Phone: [facility] Comment on above: Left elbow pain (Anastasiia ros Dx); Left wrist pain; Ulnar neuropathy at elbow of left upper extremity; Carpal tunnel syndrome of left wrist Start: 04-13-2024 End: 04-13-2024 ambulatory CJ ZEPEDA Not Available Start: 04-09-2024 End: 04-09-2024 Office outpatient visit 15 minutes Martin Arango DPM Work Phone: [facility] Comment on above: Toe pain, left (Prim patricia Dx); Toe pain, right; Capsulitis of metatarsophalangeal (MTP) joint of right foot; Paronychia, toe, right; Paronychia of toe of left foot Start: 04-09-2024 End: 04-09-2024 ambulatory MARTIN ARANGO Not Available Start: 04-08-2024 End: 04-08-2024 Bamboo flowsheet Cj Zepeda VELVET CUTTER Work Phone: [facility] Start: 04-08-2024 End: 04-08-2024 Bamboo flowsheet Cj Zepeda VELVET CUTTER Work Phone: [facility] Start: 04-08-2024 End: 04-08-2024 Office outpatient new 30 minutes Cj Zepeda VELVET CUTTER Work Phone: [facility] Comment on above: Left knee pain, unsp ecified chronicity (Primary Dx); Arthritis of left knee Start: 04-08-2024 End: 04-08-2024 ambulatory CJ ZEPEDA Not Available Start: 04-02-2024 End: 04-02-2024 ambulatory MARTIN ARANGO Not Available Start: 03-31-2024 End: 03-31-2024 ambulatory DO Robert Furlong Work Phone: [facility] Work Phone: Start: 03-31-2024 End: 03-31-2024 Patient encounter procedure DO Robert Furlong Work Phone: [facility] [address] Work Phone: Start: 03-27-2024 End: 03-27-2024 ambulatory [facility] Start: 03-20-2024 End: 03-20-2024 ambulatory ANA CORONADO Not Available Start: 03-17-2024 End: 03-17-2024 ambulatory ANA CORONADO Not Available Start: 03-05-2024 End: 03-05-2024 ambulatory ROBERT GIRON [place] [place] Start: 03-05-2024 End: 03-05-2024 Pain Management Andrew Eid [facility] Start: 02-26-2024 Encounter for other preprocedural examination REYES CUEVACORTEZ [facility] Start: 02-26-2024 End: 02-26-2024 ambulatory [facility] Start: 01-31-2024 End: 02-01-2024 Emergency department patient visit KAMILLE JACKSON [facility] Start: 01-30-2024 End: 01-30-2024 Patient encounter procedure En Carmen [facility] Start: 01-23-2024 End: 01-23-2024 ambulatory [facility] Start: 01-20-2024 End: 01-20-2024 [facility] Start: 01-15-2024 End: 01-15-2024 Pain Management Cady Alva [facility] Start: 01-01-2024 End: 01-01-2024 Pain Management Cady Alva [facility] Start: 12-31-2023 End: 12-31-2023 Patient encounter procedure SHERI JIMENES [facility] Start: 12-11-2023 End: 12-11-2023 Pain Management Andrew JeromeDanica Eid [facility] Start: 11-06-2023 End: 11-06-2023 Pain Management Cady Alva [facility] Start: 09-27-2023 Telephone encounter Carlos Sanchez MD Work Phone: [facility] Start: 09-26-2023 End: 09-26-2023 Office outpatient visit 25 minutes Martin Arango DPM Work Phone: [facility] Comment on above: Hav (hallux abducto valgus), right (Primary Dx); Plantar fasciitis; Diabetes 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 polyneuropathy, with long-term current use of insulin (CMS/HCC); Contracture of right ankle; Bone spur of right foot Start: 09-20-2023 Refill Carlos moreira MD Work Phone: [facility] 210 Comment on above: Chronic bilateral lo w back pain with bilateral sciatica; Diabetic peripheral neuropathy (CMS/HCC); Lumbar radiculopathy Start: 09-19-2023 End: 09-19-2023 ambulatory Valarie Yael Other [employer] Other Start: 09-19-2023 Telephone encounter Valarie Yael [facility] Start: 09-17-2023 End: 09-17-2023 Patient encounter procedure SHERI JIMENES [facility] Start: 08-27-2023 End: 08-27-2023 ambulatory Valarie Yael Other [employer] Other Start: 08-27-2023 Office outpatient vi sit 25 minutes Valarie Yael [facility] Start: 07-25-2023 End: 07-25-2023 Patient encounter procedure Elliott SOLIS [facility] Start: 07-05-2023 End: 07-05-2023 Patient encounter procedure Cady CALIX [facility] Start: 06-24-2023 End: 06-25-2023 ambulatory CARLOS SANCHEZ [facility] Start: 06-14-2023 End: 06-14-2023 Patient encounter procedure Cady CALIX [facility] Start: 05-22-2023 End: 05-22-2023 Patient encounter procedure Inessa Jerome Nicci [facility] Start: 05-20-2023 End: 05-20-2023 Patient encounter procedure Cady CALIX [facility] Start: 04-04-2023 End: 04-04-2023 ambulatory Valarie Yael Other [employer] Other Start: 04-04-2023 Telephone encounter Valarie Yael [facility] Start: 04-03-2023 End: 04-03-2023 ambulatory DO Robert Furlong Work Phone: [facility] Work Phone: Start: 04-03-2023 End: 04-03-2023 Patient encounter procedure DO Robert Furlong Work Phone: [facility] [address] Work Phone: Start: 02-26-2023 End: 02-26-2023 ambulatory Valarie Yael Other [employer] Other Start: 02-26-2023 Office outpatient vi sit 25 minutes Valarie Yael [facility] Start: 01-17-2023 End: 01-17-2023 Patient encounter procedure Zulema FITCH [facility] Start: 12-22-2022 End: 01-16-[address] DOCTOR GALLO Facility:[facility] Start: 12-21-2022 End: 12-22-[address] DOCTOR GALLO Facility:[facility] Start: 11-29-2022 End: 11-29-[address] ROBERT GIRON Facility:[facility] Start: 11-26-2022 End: 11-26-[address] ROBERT GIRON Facility:[facility] Start: 11-21-2022 End: 11-21-2022 Admission to same day surgery center Martin Arango [facility] Start: 10-30-2022 End: 10-30-2022 Patient encounter procedure Elliott Solis [facility] Start: 10-29-2022 End: 10-29-2022 Patient encounter procedure Inessa Grajeda [facility] Start: 10-20-2022 End: 10-20-2022 Emergency department patient visit Santos Landry [facility] Start: 10-12-2022 End: 10-12-2022 Emergency department patient visit Santos Landry [facility] Start: 10-02-2022 End: 10-02-2022 Patient encounter procedure Inessa Grajeda [facility] Start: 09-14-2022 End: 11-01-2022 Pre-admission assessment Zulema FITCH [facility] Start: 09-10-2022 End: 09-11-[address] DAVID VILLALOBOS . Facility:[facility] Start: 09-06-2022 End: 09-06-2022 Patient encounter procedure Zulema FITCH [facility] Start: 09-04-2022 End: 09-04-2022 ambulatory Valarie Yael Other [employer] Other Start: 09-04-2022 Telephone encounter Valarie Yael [facility] Start: 08-10-2022 ambulatory ELIUD JAJA Facility :[facility] Start: 08-06-2022 End: 08-07-[address] DAVID VILLALOBOS . Facility:[facility] Start: 07-05-2022 End: 07-05-2022 ambulatory Valarie Yael Other [employer] Other Start: 07-05-2022 Office outpatient vi sit 25 minutes Valarie Yael [facility] Start: 07-04-2022 End: 07-05-2022 ambulatory VALARIE YAEL Facility:[facility] Start: 07-03-2022 End: 07-03-[address] SOLO CHA . Facility:[facility] Start: 06-26-2022 End: 11-28-2022 Recurring Zulema FITCH [facility] Start: 06-08-2022 End: 06-09-[address] DOCTOR GALLO Facility:[facility] Start: 05-15-2022 End: 05-15-2022 Patient encounter procedure Cady CALIX [facility] Start: 05-09-2022 End: 09-09-2022 Recurring Zulema FITCH [facility] Start: 05-09-2022 End: 06-19-2022 Pre-admission assessment Zulema FITCH [facility] Start: 04-30-2022 End: 05-01-[address] ROBERT GIRON Facility:[facility] Start: 04-09-2022 End: 05-02-2022 Pre-admission assessment Donaldo PEARSON [facility] Start: 04-06-2022 End: 04-07-2022 ambulatory ELIUD JAJA Facility:[facility] Start: 04-01-2022 End: 04-01-2022 ambulatory JAMAR CAROLA . Facility:[facility] Start: 03-28-2022 End: 03-29-[address] DOCTOR GALLO Facility:[facility] Start: 03-20-2022 End: 03-20-2022 Patient encounter procedure Elliott Solis [facility] Start: 03-13-2022 End: 03-13-2022 ambulatory JAMAR SRIVASTAVA . Facility:[facility] Start: 03-06-2022 End: 09-07-2022 Pre-admission assessment Elliott Solis [facility] Start: 03-06-2022 End: 03-06-2022 Patient encounter procedure Cady CALIX [facility] Start: 02-08-2022 End: 06-20-2022 Recurring Zulema FITCH [facility] Start: 02-08-2022 End: 02-09-2022 Pre-admission assessment Zulema FITCH [facility] Start: 02-01-2022 End: 02-01-2022 Patient encounter procedure Zulema FITCH [facility] Start: 01-11-2022 End: 05-02-2022 Recurring Zulema FITCH [facility] Start: 01-11-2022 End: 01-11-2022 Patient encounter procedure Zulema FITCH [facility] Start: 12-20-2021 End: 03-22-2022 Recurring Zulema FITCH [facility] Start: 12-11-2021 End: 12-11-2021 Patient encounter procedure Donaldo PEARSON [facility] Start: 11-21-2021 End: 11-21-2021 Patient encounter procedure Inessa Jerome Nicci [facility] Start: 10-12-2021 End: 01-30-2022 Recurring Martin Arango [facility] Start: 04-19-2021 End: 04-19-2021 Subsequent hospital visit by physician Joann Hopkins 1 Work Phone: Radiology Comment on above: Pain [R52] Right elbow pain [M2 5.521] Procedures Date Procedure Procedure Detail Performing Clinician Start: 04-13-2025 CT of lungs Robert Giron DO Work Phone: Start: 03-16-2025 Drug tst prsmv instrmnt chem analyzers pr date Robert Giron DO Work Phone: Start: 03-16-2025 Hemoglobin glycosylated a1c Robert vila DO Work Phone: Start: 03-16-2025 Adult depression screening assessment [employer] Phone: Start: 03-10-2025 Follow-up visit Follow-up MAYA LYNN Start: 02-24-2025 Adult depression screening assessment Robert [employer] Work Phone: Start: 02-04-2025 Radex ankle complete minimum 3 views Martin Arango DPM Work Phone: Start: 12-25-2024 Adult depression screening assessment Robert Domino Work Phone: Start: 12-15-2024 Adult depression screening assessment Reyes Borges PA Work Phone: Start: 12-15-2024 Microalbumin [Mass/volume] in Urine by Test strip Robert [employer] Phone: Start: 10-26-2024 Adult depression screening assessment Robert [employer] Phone: Start: 09-29-2024 MM TOMOSYNTHESIS SCREENING BI Generic Ex ternal Data Provider Start: 09-29-2024 Mammography Generic Provider Start: 08-03-2024 Decompression of median nerve Cady Reshma barrios Start: 08-03-2024 Ulnar carpal complex ligament (body structure) Cady Alva Start: 07-29-2024 IGP,APTIMA HPV,AGE GDLN David Pandyao [employer] Work Phone: Start: 07-29-2024 Microscopic observation [Identifier] in Cervix by Cyto stain Gricelda Hammond PT Start: 05-04-2024 Cyclic citrullinated peptide antibody REYES BORGES Comment on above: Result Comment: Interpretation-------- <3 Negative >=3 Positive Performed By: #### 1 [id number], [facility], 1988-5, 3016-3, 29536-3, 02149-0, 39354-6 ####[facility] ([id number])2130 [facility], [address] [place] [address] Start: 04-30-2024 Adult depression screening assessment Robert Giron [employer] Work Phone: Start: 04-08-2024 History of decompression of median nerve History of carpal tunnel surgery Cj Katelyn DANIELS Work Phone: Start: 03-31-2024 CT of lungs DO Robertmarcos Giron Work Phone: Start: 12-11-2023 Epidural injection of lumbar spine using fluoroscopic guidance Cady Alva Comment on above: L4-L5 no relief, made worse Start: 09-27-2023 Mammography Cj Katelyn DANIELS Work Phone: Start: 04-03-2023 CT of lungs DO Robert Giron Work Phone: Start: 01-21-2023 Colonoscopy Robert Giron [employer] Work Phone: Start: 01-17-2023 SURGICAL PATHOLOGY Not In System Ref Prov Start: 01-17-2023 Colonoscopy Cj Katelyn DANIELS Work Phone: Start: 01-17-2023 Colonoscopy Zulema FITCH Start: 11-21-2022 Hammer toe (disorder) Martin Arango Start: 11-21-2022 Metatarsal bone structure (body structure) Martin Arango Start: 10-22-2022 Microalbumin [Mass/volume] in Urine by Test strip Robert Giron DO Work Phone: Start: 03-29-2022 Esophagogastroduodenoscopy [facility] Comment on above: esophageal dilation, small gastric [...] Start: 05-07-2018 Decompression of tarsal tunnel Inessa Vázquezshirley sams Comment on above: left Start: 02-15-2016 Right tarsal tunnel release Inessa Downs eldon Start: 08-17-2015 Left instep plantar fasciotomy with division of soft tissue & fascia & muscle. Inessa rGajeda Start: 06-22-2015 right instep plantar fasciotomy with division of muscle and fascia Inessarm Gatesz Appendectomy Inessarm Grajeda Arthroscopy of knee Inessarm Vázquez leonardo Breast surgery (qualifier value) Inessa Gatesz Comment on above: x 2 - removal of milk ducts Cholecystectomy Inessarm Downs Colonoscopy Inessa Grajeda Colonoscopy [facility] Cystopexy Inessa Grajeda Decompression of median nerve Inessa Grajeda Comment on above: x 2 Decompression of ulnar nerve Inessa Grajeda Comment on above: x 2 Esophagogastroduodenoscopy B dejah Grajeda Esophagogastroduodenoscopy [facility] Comment on above: Antral erosions Excision of ganglion cyst Be Nicci Extracorporeal shock wave lithotripsy of calculus of kidney Inessa Grajeda H/O: hysterectomy H/O: hysterectomy David Wilfredo DO Work Phone: History of decompres anna of median nerve History of carpal tunnel surgery DO Robert Giron Work Phone: Comment on above: 1992 Hysterectomy Inessa Grajeda ingrown toenail removal 10 [facility] Comment on above: x3 ingrown toenail removal 11 [facility] Comment on above: x3 ingrown toenail removal 12 A gabriele Alva Comment on above: x3 ingrown toenail removal [...] Screening for malignant neoplasm of colon Colonoscopy [facility] Start: 01-17-2033 Screening for malignant neoplasm of colon [facility] Start: 07-29-2029 Screening for malignant neoplasm of cervix [facility] Start: 03-16-2026 Adult BMI Screening Adult BMI Screening [facility] Start: 03-16-2026 Depression Screening Depression Screening [facility] Start: 03-16-2026 Tobacco Screening Tobacco Screening [facility] Start: 03-10-2026 Adult BMI Screening Adult BMI Screening [facility] Start: 03-10-2026 Tobacco Screening Tobacco Screening [facility] Start: 02-24-2026 Adult BMI Screening Adult BMI Screening [facility] Start: 02-24-2026 Depression Screening Depression Screening [facility] Start: 02-24-2026 Tobacco Screening Tobacco Screening [facility] Start: 01-15-2026 Statin Use: Cardiovascular Statin Use: Cardiovascular [facility] Start: 01-15-2026 Statin Use: Diabetic Statin Use: Diabetic [facility] Start: 12-25-2025 Adult BMI Screening Adult BMI Screening [facility] Start: 12-25-2025 Depression Screening Depression Screening [facility] Start: 12-25-2025 Tobacco Screening Tobacco Screening [facility] Start: 12-15-2025 Adult BMI Screening Adult BMI Screening [facility] Start: 12-15-2025 Depression Screening Depression Screening [facility] Start: 12-15-2025 Tobacco Screening Tobacco Screening [facility] Start: 12-15-2025 Urine screening for protein Urine Microalbumin [facility] Start: 10-26-2025 Adult BMI Screening Adult BMI Screening [facility] Start: 10-26-2025 Depression Screening Depression Screening [facility] Start: 10-26-2025 Tobacco Screening Tobacco Screening [facility] Start: 09-29-2025 [facility]ening for malignant neoplasm of [facility] Start: 09-15-2025 Adult BMI Screening Adult BMI Screening [facility] Start: 09-15-2025 Tobacco Screening Tobacco Screening [facility] Start: 07-27-2025 Tobacco Screening Tobacco Screening [facility] Start: 07-07-2025 Adult BMI Screening Adult BMI Screening [facility] Start: 06-17-2025 End: 06-17-2025 Patient encounter procedure 06/17/2025 1:30 PM EDT Office Visit [facility] Internal Medicine - Family Medicine [address] [place] [address] Robert Giron, [address], [place] [address] [facility] Internal Medicine - Family Medicine Start: 06-10-2025 End: 06-10-2025 Patient encounter procedure [facility] IS[facility] R Start: 04-30-2025 Depression Screening Depression Screening [facility] Start: 04-19-2025 Influenza vaccination [facility] Start: 03-16-2025 End: 03-16-2025 Patient encounter procedure 03/16/2025 2:00 PM EDT Office Visit [facility] Internal Medicine - Family Medicine [address] [place] [address] Robert Giron DO [address], [place] [address] [facility] Internal Medicine - Family Medicine Start: 03-10-2025 End: 03-10-2025 Patient encounter procedure 03/10/2025 9:30 AM EDT Office Visit [facility] General Surgery [address] [place] [address] Maya Lynn, PERSONAL LINES UNDERWRITER-CORONARY CARE UNIT NURSE [address] [place] [address] Polyp of colon, unspecified part of colon, unspecified type [facility] Comment on above: Polyp [...] Treatment [facility] [address] [facility] [address] [place] [address] Andria Carter PTA [facility] Start: 02-15-2025 End: 02-15-2025 ambulatory [facility] Comment on above: Arrived Start: 02-11-2025 End: 02-11-2025 ambulatory [facility] Start: 02-10-2025 End: 02-10-2025 Patient encounter procedure 02/10/2025 1:20 PM EDT Office Visit [facility] [address] [facility] [address] [place] [address] Carlos Sanchez MD [address] [facility] [address] Vázquez [address] [place] [address] [facility] Start: 02-08-2025 End: 02-08-2025 ambulatory 02/08/2025 2:00 PM EDT Treatment [facility] [address] [place] [address] [place] [address] Andria Carter, LANCE CREWMEMBER/MLRS SERGEANT [facility] Start: 02-04-2025 End: 02-04-2025 ambulatory 02/04/2025 2:00 PM EDT Treatment [facility] [address] [facility] [address] [place] [address] Andria Carter LANCE CREWMEMBER/MLRS SERGEANT [facility] Start: 02-04-2025 End: 02-04-2025 Patient encounter procedure [facility] Comment on above: Mild ankle sprain, right, initial encoun ter (Primary Dx); Paronychia, toe, right; Diabetes 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 polyneuropathy, with long-term current use of insulin (HCC) Start: 02-02-2025 End: 02-02-2025 ambulatory 02/02/2025 2:00 PM EDT Treatment [facility] [address] [facility] [address] [place] [address] Gricelda Hammond, PT [facility] Start: 01-29-2025 End: 01-29-2025 ambulatory 01/29/2025 1:00 PM EDT Treatment [facility] [address] [facility] [address] [place] [address] Andria Carter, LANCE CREWMEMBER/MLRS SERGEANT [facility] Start: 01-26-2025 End: 01-26-2025 Patient encounter procedure 01/26/2025 12:45 PM EDT Office Visit [facility] [address] [place] [address] Reyes Borges PA [address] [place] [address] [facility] Start: 01-25-2025 End: 01-25-2025 ambulatory 01/25/2025 2:00 PM EDT Evaluation [facility] [address] [facility] [address] [place] [address] Gricelda Hammond, PT [facility] Start: 01-14-2025 End: 01-14-2025 Patient encounter procedure 01/14/2025 4:20 PM EDT Office Visit [facility] [address] [place] [address] [place] [address] Martin Arango, SALLIE [address] [address] Mild ankle sprain, right, initial encounter (Primary Dx); Paronychia, toe, right [facility] Comment on above: Mild ankle sprain, right, initial encoun ter (Primary Dx); Paronychia, toe, right Start: 01-08-2025 End: 01-08-2025 ambulatory 01/08/2025 1:30 PM EDT Evaluation [facility] [address] [facility] [address] [place] [address] Gricelda Hammond, PT [facility] Start: 01-07-2025 End: 01-07-2025 Patient encounter procedure 01/07/2025 3:40 PM EDT Office Visit [facility] [address] [facility] [address] [place] [address] Martin Arango, SALLIE [address] [address] [facility] Start: 12-25-2024 End: 12-25-2024 Patient encounter procedure 12/25/2024 9:00 AM EDT Office Visit [facility] [address] [place] [address] Robert Giron, DO [address], [facility] [place] [address] [facility] Start: 12-17-2024 End: 12-17-2024 Patient encounter procedure 12/17/2024 1:10 PM EDT Office Visit [facility] [address] [facility] [address] [place] [address] Martin Arango DPM [address] [facility] [address] [place] [address] Downey neuroma, right (Primary Dx); Acquired deformity of right toe; Paronychia, toe, right; Diabetes 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 polyneuropathy, with long-term current use of insulin (CMS/[facility]) [facility] Comment on above: Downey neuroma, right (Primary Dx); Acquired deformity of right toe; Paronychia, toe, right; Diabetes 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 polyneuropathy, with long-term current use of insulin (CMS/HCC) Start: 12-15-2024 End: 12-15-2024 Patient encounter procedure 12/15/2024 3:30 PM EDT Office Visit [facility] [address] [place] [address] Robert Giron DO [address] [facility], [place] [address] [facility] Start: 12-14-2024 End: 12-14-2024 Patient encounter procedure 12/14/2024 1:20 PM EDT Office Visit [facility] [address] [facility] [address] [place] [address] Carlos Sanchez MD [address] [facility] [address] [address] [facility] Start: 12-03-2024 End: 12-03-2024 Patient encounter procedure [facility] Comment on above: Downey neuroma, right (Primary Dx); Diabetes 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 polyneuropathy, with long-term current use of insulin (CMS/HCC); Acquired deformity of right toe Start: 11-19-2024 End: 11-19-2024 Patient encounter procedure [facility] Comment on above: Acquired deformity of right toe (Primary Dx); Diabetes 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 polyneuropathy, with long-term current use of insulin ([facility]) Start: 11-11-2024 End: 11-11-2024 Patient encounter procedure [facility] ISAMAR R Comment on above: Arrived Start: 10-29-2024 End: 10-29-2024 Patient encounter procedure 10/29/2024 4:00 PM EDT Appointment [facility] [address] [place] [address] Robert Giron, DO [address], [facility] [place] [address] [facility] Start: 10-26-2024 End: 10-26-2024 Patient encounter procedure 10/26/2024 3:30 PM EDT [facility] - Family Medicine [address] [place] [address] Robert Giron, [address], [facility] [place] [address] [facility] - [facility] Start: 10-26-2024 End: 10-26-2025 US.doppler Extremity arteries - bilateral for physiologic artery study Vas art doppler lwr bilat mult lev/PVR Vascular Ultrasound Routine Peripheral arterial disease ([facility]) Expected: 10/26/2024, Expires: 10/26/2025 [facility] Work Phone: [...] encounter procedure 09/30/2024 1:00 PM EST Appointment [facility] [address] [place] [address] [facility] Start: 09-27-2024 Screening for malignant neoplasm of breast Mammogram [facility] Start: 09-24-2024 End: 09-24-2024 ambulatory [facility] Start: 09-22-2024 End: 09-22-2024 ambulatory 09/22/2024 1:30 PM EST Treatment [facility] [address] [facility] [address] [place] [address] Gricelda Hammond, PT [facility] Start: 09-17-2024 End: 09-17-2024 ambulatory 09/17/2024 12:30 PM EST Treatment [facility] [address] [facility] [address] [place] [address] Gricelda Hammond, PT [facility] Start: [...] 09/15/2024 3:30 PM EST Office Visit [facility] Internal Medicine - Family Medicine [address] [place] [address] Robert Giron DO [address] [place] [address] [facility] - Family [facility] Start: 09-15-2024 End: 09-15-2024 ambulatory 09/15/2024 12:30 PM EST Treatment [facility] [address] [facility] [address] [place] [address] Shmuel Levine, LANCE CREWMEMBER/MLRS SERGEANT [facility] Start: 09-10-2024 End: 09-10-2024 ambulatory 09/10/2024 12:30 PM EST Treatment [facility] [address] [facility] [address] [place] [address] Shmuel Levine, LANCE CREWMEMBER/MLRS SERGEANT [facility] Start: 09-07-2024 End: 09-07-2024 ambulatory [facility] Start: 09-04-2024 End: 09-04-2024 ambulatory 09/04/2024 2:30 PM EST Treatment [facility] [address] [facility] [address] [place] [address] Carlotta Melton, LANCE CREWMEMBER/MLRS SERGEANT [facility] Start: 09-03-2024 End: 09-03-2024 ambulatory 09/03/2024 12:30 PM EST Treatment [facility] [address] [facility] [address] [place] [address] Gricelda Hammond, PT [facility] Start: 09-02-2024 End: 09-02-2024 Patient encounter procedure 09/02/2024 8:10 AM EST Office Visit [facility] [address] [facility] [place] [address] David Villalobos, DO [address] [facility] [place] [address] [facility] Start: 09-01-2024 End: 09-01-2024 ambulatory [facility] Comment on above: Arrived Start: 08-10-2024 End: 08-10-2024 Patient encounter procedure [facility] Comment on above: Arrived Start: 07-29-2024 End: 07-29-2025 DXA Skeletal system Views for bone density DEXA bone density Imaging Routine Osteoporosis, post-menopausal ([facility]) Expected: 07/29/2024 (Approximate), Expires: 07/29/2025 [facility] Work Phone: Comment on above: Expected: 07/29/2024 (Approximate), Expi res: 07/29/2025 Start: 07-29-2024 End: 07-29-2024 Patient encounter procedure 07/29/2024 1:30 PM EST Office Visit [facility] [address] [place] [address] David Villalobos, [address] [place], [place] [id number] Arrived [facility] Comment on above: Arrived Start: 07-27-2024 End: 07-27-2024 Patient encounter procedure 07/27/2024 2:00 PM EST Office Visit [facility] [address] [facility] [address] [place] [address] Carlos Sanchez MD [address]ano Vázquez [address] [place] [id number] [facility] Start: 07-10-2024 Adult BMI Follow Up Plan Adult BMI Follow Up Plan [facility] Start: 07-08-2024 Diabetic foot examination Diabetic Foot Exam [facility] Start: 07-07-2024 End: 07-07-2024 Patient encounter procedure 07/07/2024 1:00 PM EST Office Visit [facility] [address] [facility] [place] [address] David Villalobos, [address] [place], [place] [phone] [facility] Start: 06-18-2024 End: 06-18-2024 Patient encounter procedure 06/18/2024 3:00 PM EDT Office Visit [facility] [address] [place] [address] [place] [phone] Martin Arango DPM [address] [facility] 5 [place] [address] Arrived [facility] Comment on above: Arrived Start: 05-14-2024 End: 05-14-2024 Patient encounter procedure [facility] Comment on above: Capsulitis of metatarsophalangeal (MTP) joint of right foot (Primary Dx); Paronychia, toe, right; Paronychia of toe of left foot; Diabetes 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 polyneuropathy, with long-term current use of insulin ([facility]) Start: 04-27-2024 End: 04-27-2024 Patient encounter procedure 04/27/2024 2:00 PM EDT Office [facility] [address] [facility] [address] [place] [address] Carlos Sanchez MD [address] [phone] [facility] Start: 04-23-2024 End: 04-23-2024 Professional / ancillary services management 04/23/2024 10:20 AM EDT Ancillary Procedure [facility] [address] [facility] [address] [place] [address] Arrived [facility] Comment on above: [...] long-term current use of insulin ([facility]) Start: 04-21-2024 End: 04-21-2024 Patient encounter procedure 04/21/2024 1:00 PM EDT Office Visit [facility] 112 [facility] [address] [place] [address] Pastora Alcantara, 112 [facility] [address] [place] [address] [facility] Start: 04-19-2024 Covid-19 Vaccine ( season) Covid-[address] () [facility] Start: 04-19-2024 Influenza vaccination Influenza Vaccine (#1) [facility] Start: 04-16-2024 End: 04-16-2024 Patient encounter procedure 04/16/2024 1:50 PM EDT Office Visit [facility] [address] [facility] [address] [place] [address] Martin Arango DPM [address] [address] [facility] Start: 04-15-2024 End: 04-15-2024 [...] EDT Office Visit [facility] 112 [facility] [address] [place] [address] Martin Arango DPM [address] [address] [facility] Start: 04-08-2024 End: 04-08-2024 Patient encounter procedure 04/08/2024 12:30 PM EDT Office Visit [facility] [address] [facility] [address] [place] [phone] Cj Zepeda NP [address] [place] [address] [place] [address] Left knee pain, unspecified chronicity (Primary Dx); [...] Visit [facility] [address] [facility] [address] [place] [address] Carlos Sanchez MD 9599 [facility] [address] [address] [facility] Start: 10-23-2023 Urine screening for protein Urine Microalbumin [facility] Start: 10-17-2023 End: 10-17-2023 Patient encounter procedure [facility] Start: 10-09-2023 End: 10-09-2023 Patient encounter procedure 10/09/2023 8:30 AM EST Procedure Visit [facility] DE[facility] Martin Arango DPM [address] [facility] 5 [place] [address] [facility] Start: 09-26-2023 End: 09-26-2023 Patient encounter procedure 09/26/2023 3:10 PM EST Office Visit [facility] [address] [facility] [address] [place] [address] Martin Arango DPM [address] [facility] 5 [place] [address] [facility] Start: 09-27-2021 Diabetes Screening Diabetes Screening [facility] Start: 03-14-2021 Screening for malignant neoplasm of colon [facility] Start: 2020 Shingrix Vaccine (1 of 2) Shingrix Vaccine (1 of 2) [facility] Start: 2015 Lipid panel Lipid Screening [facility] Start: 2015 Screening for malignant neoplasm of colon [facility] Start: 2010 Screening for malignant neoplasm of breast Mammogram Screening [facility] Start: 2000 Screening for malignant neoplasm of cervix [facility] Start: 1991 Screening for malignant neoplasm of cervix [facility] Start: 1989 DTaP,Tdap and Td Vaccines (1 - Tdap) DTaP,Tdap and Td Vaccines (1 - Tdap) [facility] Start: 1989 Hepatitis B Vaccine (1 of 3 - 19+ 3-dose series) Hepatitis B Vaccine (1 of 3 - 19+ 3-dose series) [facility] Start: 1989 Urine microalbumin profile DTaP,Tdap,Td Vaccine (1 - Tdap) [facility] Start: 1988 Anxiety Screening Anxiety Screening [facility] Start: 1988 Depression Screening Depression Screening [facility] Start: 1988 Hepatitis C screening Hepatitis C Screening [facility] Start: 1988 HIV screening HIV Screening [facility] Start: 1976 Pneumococcal vaccination Pneumococcal Vaccine (1 of 2 - PCV) [facility] Start: 1970 Glaucoma screening Diabetic Ophthalmology Exam [facility] Start: 1970 Screening for malignant neoplasm of colon [facility] Start: 1970 Tobacco Counseling Tobacco Counseling [facility] End: 09-15-2025 Comprehensive metabolic 2000 panel - Serum or Plasma Comprehensive metabolic panel Lab Routine Essential hypertension 1 Occurrences starting 09/15/2024 until 09/15/2025 [facility] Comment on above: 1 Occurrences starting 09/15/2024 until 09/15/2025 End: 09-15-2025 Drug Screen, Urine Drug Screen, Urine Lab Routine Medication management 1 Occurrences starting 09/15/2024 until 09/15/2025 [facility] Comment on above: 1 Occurrences starting 09/15/2024 until 09/15/2025 End: 10-26-2025 Drug Screen, Urine Drug Screen, Urine Lab Routine Anxiety Medication monitoring encounter 1 Occurrences starting 10/26/2024 until 10/26/2025 [employer] Comment on above: 1 Occurrences starting 10/26/2024 until 10/26/2025 End: 09-15-2025 Hemoglobin A1c/Hemoglobin.total in Blood Hemoglobin A1c Lab Routine Diabetes mellitus without complication ([facility]) 1 Occurrences starting 09/15/2024 until 09/15/2025 [employer] Work Phone: Comment on above: 1 Occurrences starting 09/15/2024 until 09/15/2025 End: 09-15-2025 Lipid panel Lipid panel Lab Routine Mixed hyperlipidemia 1 Occurrences starting 09/15/2024 until 09/15/2025 [employer] Comment on above: 1 Occurrences starting 09/15/2024 until 09/15/2025 End: 12-15-2025 Microalbumin - Albumin: Creatinine Urine Ratio Microalbumin - Albumin: Creatinine Urine Ratio Lab Routine Diabetes mellitus without complication ([facility]) 1 Occurrences starting 12/15/2024 until 12/15/2025 [employer] Work Phone: Comment on above: 1 Occurrences starting 12/15/2024 until 12/15/2025 Microalbumin - Album in: Creatinine Urine Ratio Microalbumin - Albumin: Creatinine Urine Ratio Lab Routine Diabetes mellitus without complication ([facility]) 12/15/2024 4:11 PM EDT [employer] THIN PREP TIS PAP AN D HR HPV DNA THIN PREP TIS PAP AND HR HPV DNA Pathology and Cytology Routine Well woman exam with routine gynecological exam H/O: hysterectomy Ordered: 07/29/2024 [facility] Comment on above: Ordered: 07/29/2024 End: 03-16-2026 Tramadol and Metabolite, U Tramadol and Metabolite, U Lab Routine Lumbosacral radiculopathy at L5 Osteoarthritis, unspecified osteoarthritis type, unspecified site 1 Occurrences starting 03/16/2025 until 03/16/2026 [employer] Work Phone: Comment on above: 1 Occurrences starting 03/16/2025 until 03/16/2026 Tramadol and Metabolite, U Trama dol and Metabolite, U Lab Routine Lumbosacral radiculopathy at L5 Osteoarthritis, unspecified osteoarthritis type, unspecified site 03/16/2025 3:16 PM EDT [facility] End: 12-15-2025 XR Cervical spine 4 or 5 Views X-ray spine cervical 4 or 5 views Imaging Routine Cervical spondylosis without myelopathy 1 Occurrences starting 12/15/2024 until 12/15/2025 [employer] Work Phone: Comment on above: 1 Occurrences starting 12/15/2024 until 12/15/2025 XR Foot - right 3 Views XR foot 3+ views right Imaging Routine Paronychia, toe, right 04/23/2024 10:16 AM EDT [facility] Work Phone: XR Knee - left 1 or 2 Views XR k nee 1 or 2 views left Imaging Routine Acute pain of left knee 03/09/2025 10:54 AM EDT [employer] Work Phone: Immunizations Immunization Date Immunization Notes Care Provider [facility] 05-12-2024 Covid-19,mrna, Lnp-s , Pf, 50mcg/0.5ml 12+ Robert Furlong DO Work Phone: [facility] 05-12-2024 influenza, seasonal, injectable, preservative free Robert Furlong DO Work Phone: [facility] 05-12-2024 Pneumococcal Conjugate 20-valent Robert Furlong DO Work Phone: [facility] 05-12-2024 zoster vaccine recombinant Robert Furlong DO Work Phone: [facility] 05-12-2024 influenza virus vaccine, unspecified formulation Martin Arango DPM Work Phone: [facility] 03-09-2024 zoster vaccine recombinant Cj Zepeda VELVET CUTTER Work Phone: [facility] 06-24-2023 influenza virus vaccine, unspecified formulation SHERI JIMENES [facility] 06-24-2023 SARS-COV-2 (COVID-19 ) vaccine, mRNA, spike protein, LNP, PF, 50 mcg/0.5 mL Cj Katelyn JEREMIAH Work Phone: [facility] 04-15-2020 influenza virus vaccine, unspecified formulation Cady CALIX [facility] 06-02-2019 hepatitis A vaccine, adult dosage Cady CALIX [facility] 11-21-2018 hepatitis A vaccine, adult dosage Cady CALIX [facility] NEGATED: Highlighted row has not occurred!04-29-2023 influenza virus vaccine, unspecified formulation Cady CALIX [facility] NEGATED: Highlighted row has not occurred!10-29-2022 influenza virus vaccine, unspecified formulation Inessa Grajeda [facility] NEGATED: Highlighted row has not occurred!09-14-2022 influenza virus vaccine, unspecified formulation Inessa Grajeda [facility] NEGATED: Highlighted row has not occurred!05-09-2022 influenza virus vaccine, unspecified formulation Cady CALIX [facility] NEGATED: Highlighted row has not occurred!12-11-2021 influenza virus vaccine, unspecified formulation Donaldo PEARSON [facility] NEGATED: Highlighted row has not occurred!12-11-2021 SARS-CoV-2 (COVID-19) Ad26 vaccine, recombinant Donaldo PEARSON [facility] NEGATED: Highlighted row has not occurred!11-07-2021 influenza virus vaccine, unspecified formulation Inessa Carmenmetz [facility] NEGATED: Highlighted row has not occurred!09-04-2021 SARS-CoV-2 (COVID-19) Ad26 vaccine, recombinant Inessa Grajeda [facility] Payers Date Payer Category Payer Self-pay [id number] 01-18-2023 Medicaid [facility] [id number] 04-19-2022 Medicaid [id number] 03-19-2019 Unknown [id number] [id number]. [id number] 01-17-2017 Private Health Insurance [facility] MEDICAID [id number] 08-19-2004 Medicaid [id number]. 1.13.693.2. [id number] 1970 Unknown [id number] 2.16.840.1.612774.3.579.2. 593 1970 Unknown [id number] 2.16.840.1.467078.3.579.2. 593 1970 Unknown [id number] 2.16.840.1.773610.3.579.2. 593 1970 Unknown [id number] 2.16.840.1.032492.3.579.2. 593 1970 Unknown [id number] 2.16.840.1.168323.3.579.2. 593 1970 Unknown [id number] 2.16.840.1.527833.3.579.2. 593 1970 Unknown [id number] 2.16.840.1.451741.3.579.2. 593 1970 Unknown [id number] 2.16.840.1.995393.3.579.2. 593 1970 Unknown [id number] 2.16.840.1.223783.3.579.2. 593 1970 Unknown [id number] 2.16.840.1.321247.3.579.2. 593 1970 Unknown [id number] 2.16.840.1.383082.3.579.2. 593 1970 Unknown [id number] 2.16.840.1.522605.3.579.2. 593 1970 Unknown [id number] 2.16.840.1.515641.3.579.2. 593 1970 Unknown [id number] 2.16.840.1.435971.3.579.2. 593 1970 Unknown [id number] 2.16.840.1.488654.3.579.2. 593 1970 Unknown [id number] 2.16.840.1.139739.3.579.2. 176 1970 Unknown [id number] 2.16.840.1.606940.3.579.2. 1286 1970 Unknown [id number] 2.16.840.1.637715.3.579.2. 1285 1970 Unknown [id number] 2.16.840.1.469795.3.579.2. 1285 1970 Unknown [id number] 2.16.840.1.472928.3.579.2. 1285 1970 Unknown [id number] 2.16.840.1.417090.3.579.2. 1285 1970 Unknown [id number] 2.16.840.1.603342.3.579.2. 1285 1970 Unknown [id number] 2..840.1.672518.3.579.2. 1285 1970 Unknown [id number] 2.16.840.1.194716.3.579.2. 1285 1970 Unknown [id number] 2.840.1.883563.3.579.2. 1285 1970 Unknown [id number] 2.840.1.727894.3.579.2. 1285 1970 Unknown [id number] 2..840.1.416198.3.579.2. 1285 1970 Unknown [id number] 2.16.840.1.996769.3.579.2. 1285 1970 Unknown [id number] 2.16.840.1.305376.3.579.2. 1285 1970 Unknown [id number] 2..840.1.479205.3.579.2. 1285 1970 Unknown [id number] 2.16.840.1.447043.3.579.2. 1285 1970 Unknown [id number] 2.16.840.1.477155.3.579.2. 1285 1970 Unknown [id number] 2.16.840.1.108961.3.579.2. 1286 1970 Unknown [id number] 2.16.840.1.224700.3.579.2. 1286 1970 Unknown [id number] 2.16.840.1.785637.3.579.2. 1286 1970 Unknown [id number] 2.16.840.1.027727.3.579.2. 1286 1970 Unknown [id number] 2.16.840.1.273651.3.579.2. 1286 1970 Unknown [id number] 2.16.840.1.502976.3.579.2. 1286 1970 Unknown [id number] 2.16.840.1.114733.3.579.2. 1286 1970 Unknown [id number] 2.16.840.1.691279.3.579.2. 727 1970 Unknown [id number] 2.16.840.1.913642.3.579.2. 727 1970 Unknown [id number] 2.16.840.1.773540.3.579.2. 727 1970 Unknown [id number] 2.16.840.1.107975.3.579.2. 727 1970 Unknown [id number] 2.16.840.1.443816.3.579.2. 727 1970 Unknown [id number] 2.16.840.1.747113.3.579.2. 727 1970 Unknown [id number] 2.16.840.1.241649.3.579.2. 1259 1970 Unknown [id number] 2.16.840.1.592001.3.579.2. 1259 1970 Unknown [id number] 2.16.840.1.831524.3.579.2. 1259 1970 Unknown [id number] 2.16.840.1.117294.3.579.2. 1259 1970 Unknown [id number] 2.16.840.1.123783.3.579.2. 1258 1970 Unknown [id number] 2.16.840.1.167147.3.579.2. 1258 1970 Unknown [id number] 2.16.840.1.772672.3.579.2. 1258 1970 Unknown [id number] 2.16.840.1.102563.3.579.2. 1258 1970 Unknown [id number] 2.16.840.1.014678.3.579.2. 1258 1970 Unknown [id number] 2.16.840.1.141411.3.579.2. 1258 1970 Unknown [id number] 2.16.840.1.422206.3.579.2. 1258 1970 Unknown [id number] 2.16.840.1.919371.3.579.2. 1258 1970 Unknown [id number] 2.16.840.1.664986.3.579.2. 1258 1970 Unknown [id number] 2.16.840.1.841620.3.579.2. 1258 1970 Unknown [id number] 2.16.840.1.463032.3.579.2. 1258 1970 Unknown [id number] 2.16.840.1.823836.3.579.2. 1258 1970 Unknown [id number] 2.16.840.1.896162.3.579.2. 1258 1970 Unknown [id number] 2.16.840.1.929992.3.579.2. 1258 1970 Unknown [id number] 2.16.840.1.589328.3.579.2. 1258 1970 Unknown [id number] 2.16.840.1.895959.3.579.2. 1259 1970 Unknown [id number] 2.16.840.1.402718.3.579.2. 1258 1970 Unknown [id number] 2.16.840.1.839984.3.579.2. 1258 1970 Unknown [id number] 2.16.840.1.353870.3.579.2. 1258 1970 Unknown [id number] 2.16.840.1.165995.3.579.2. 1258 1970 Unknown [id number] 2.16.840.1.440062.3.579.2. 1258 1970 Unknown [id number] 2.16.840.1.523985.3.579.2. 1258 1970 Unknown [id number] 2.16.840.1.410163.3.579.2. 1258 1970 Unknown [id number] 2.16.840.1.271555.3.579.2. 1258 1970 Unknown [id number] 2.16.840.1.812305.3.579.2. 1258 1970 Unknown [id number] 2.16.840.1.307074.3.579.2. 1258 1970 Unknown [id number] 2.16.840.1.713137.3.579.2. 1258 1970 Unknown [id number] 2.16.840.1.854466.3.579.2. 1258 1970 Unknown [id number] 2.16.840.1.465767.3.579.2. 1258 1970 Unknown [id number] 2.16.840.1.991526.3.579.2. 1258 1970 Unknown [id number] 2.16.840.1.418631.3.579.2. 1258 1970 Unknown [id number] 2.16.840.1.599767.3.579.2. 1259 1970 Unknown [id number] 2.16.840.1.457839.3.579.2. 1259 1970 Unknown [id number] 2.16.840.1.969084.3.579.2. 1259 1970 Unknown [id number] 2.16.840.1.658572.3.579.2. 1259 1970 Unknown [id number] 2.16.840.1.348319.3.579.2. 1259 1970 Unknown [id number] 2.16.840.1.737692.3.579.2. 1286 1970 Unknown [id number] 2.16.840.1.503236.3.579.2. 1286 1970 Unknown [id number] 2.16840.1.781251.3.579.2. 1286 1970 Unknown [id number] 2.16.840.1.617819.3.579.2. 1286 1970 Unknown [id number] 2.16.840.1.319611.3.579.2. 1286 1970 Unknown [id number] 2.16.840.1.455490.3.579.2. 1286 1970 Unknown [id number] 2.16.840.1.291992.3.579.2. 1286 1970 Unknown [id number] 2.16.840.1.567053.3.579.2. 1286 1970 Unknown [id number] 2.16.840.1.373107.3.579.2. 718 1970 Unknown [id number] 2.16.840.1.063553.3.579.2. 718 1970 Unknown [id number] 2.16.840.1.041300.3.579.2. 727 1970 Unknown [id number] 2.16.840.1.126062.3.579.2. 727 1970 Unknown [id number] 2.16.840.1.675183.3.579.2. 727 08-19-1959 Medicaid [id number] 08-19-1959 Private Health Insurance [id number] 08-19-1959 Unknown [id number] 08-19-1959 Unknown [id number] Unknown [id number] 2.16.840.1.721941.3.579.2. 531 Unknown [id number] 2.16.840.1.342161.3.579.2. 531 Unknown [id number] 2.16.840.1.731938.3.579.2. 531 Social History Date Type Detail Facility Start: 11-07-2021 End: 01-21-2025 Tobacco smoking status Heavy tobacco smoker (finding) [facility] Comment on above: 1 pack per day smoke r Start: 01-24-2023 End: 08-28-2023 Sex Assigned At Female [facility] Tobacco [facility] Comment on above: 1 ppd smokes 1 ppd. Tobacco smoking status Never [facility] Start: 1970 Sex Assigned At Female [facility] Tobacco smoking status [facility] Start: 08-19-1985 End: 02-17-2025 Tobacco smoking status NHIS Smoker (finding) [facility] Start: 01-04-2022 End: 06-20-2023 Tobacco smoking [...] 01-24-2023 End: 08-28-2023 History of Social function [facility] Start: 02-21-2023 Alcohol Comment caffeine 1-2 c ups per day [facility] Start: 1970 Sex Assigned At Not on file [facility] Start: 06-30-2020 Alcoholic beverage intake Current non-drinker of alcohol (finding) [facility] Start: 02-28-2015 Tobacco Comment Vaporization a lso. started to smoke at 12 [facility] Start: 03-20-2021 End: 04-19-2021 Exposure to SARS-CoV-2 (event) Not sure [facility] How often to you hav e a drink containing alcohol? Monthly or less [facility] How many standard drinks containing alcohol do you have on a typical day? 1 or 2 [facility] How often do you hav e 6 or more drinks on 1 occasion? Less than monthly [facility] Start: 10-17-2023 Alcohol Comment caffeine intak e: 1-2 cups per day [facility] Start: 03-24-2024 Gender identity Identifies as female gender (finding) [facility] Has the [employer], [employer], or [employer] threatened to shut off services in your home in past 12Mo No [facility] Are you now , , , , never or living with a partner? [facility] How many standard drinks containing alcohol do you have on a typical day? 3 or 4 [facility] How often do you hav e 6 or more drinks on 1 occasion? Never [facility] How hard is it for y ou to pay for the very basics like food, housing, medical care, and heating Not very hard [facility] Do you feel stress - tense, restless, nervous, or anxious, or unable to sleep at night because your mind is troubled all the time - these days [OSQ] To some extent [facility] Start: 03-24-2015 End: 11-07-2018 Sex Female (finding) [facility] Start: 02-24-2025 End: 03-16-2025 Tobacco smoking status NHIS Ex-smoker [facility] Medical Equipment Procedure Code Equipment Code Equipment Origin al Text Equipment Identifier Dates Phacoemulsification of cataract with intraocular lens implantation Posterior-chamber intraocular lens, pseudophakic ()[id number] FDA Start: 12-14-2021 Phacoemulsification of cataract with intraocular lens implantation Posterior-chamber intraocular lens, pseudophakic ()[id number] FDA Start: 01-04-2022 HAMMERTOE REPAIR Brown [...] Non Biological Foot R FDA Start: 11-21-2022 [id number] Start: 09-23-2024 End: 02-24-2025 Inject 1 Lancet under the skin in the morning. [id number] Start: 09-23-2024 End: 02-24-2025 HAMMERTOE REPAIR Brown [...] route as needed for high blood sugar. [id number] Start: 02-24-2025 1 strip by other route as needed for high blood sugar. [id number] Start: 02-24-2025 End: 02-24-2025 1 Lancet by miscellaneous route in the morning. [id number] Start: 02-25-2025 HAMMERTOE REPAIR Brown DPM, Martin A 11/21/22 Non Biological Foot R FDA Start: 11-21-2022 JUAN ALBERTO Arango DPM, Martin A 11/21/22 Non Biological Foot R FDA Start: 11-21-2022 Functional Status Date Assessment Result Facility 08-26-2024 Functional Status N/A [facility] 08-13-2024 Functional Status N/A [facility] 03-05-2024 Functional Status N/A [facility] 01-30-2024 Functional Status N/A [facility] 01-15-2024 Functional Status N/A [facility] 01-01-2024 Functional Status N/A [facility] 12-31-2023 Functional Status N/A [facility] 11-06-2023 Functional Status N/A [facility] 09-17-2023 Functional Status N/A [facility] 07-25-2023 Functional Status No [facility] 07-05-2023 Functional Status No [facility] 05-20-2023 Functional Status No [facility] 01-17-2023 Functional Status N/A [facility] 10-30-2022 Functional Status No [facility] 10-29-2022 Functional Status N/A [facility] 10-20-2022 Functional Status N/A [facility] 10-12-2022 Functional Status N/A [facility] 10-02-2022 Functional Status N/A [facility] 09-06-2022 Functional Status N/A [facility] 05-15-2022 Functional Status No [facility] 03-06-2022 Functional Status N/A [facility] Clinical Notes 04-19-2021 to 04-13-2025 Telephone Encounter - Caridad De Leon - 03/23/2025 11:32 AM EDTTelephone Encounter - Caridad De Leon - 03/23/2025 11:32 AM Neena Giron DO - 03/16/2025 2:00 PM EDT Note Date & Type Note Facility 04-13-2025 Radiology Diagnostic study note [facility] [place] [address] [place] [address] CT Scan Report Signed Patient: Rock Herrera MR#: [id number] : 1970 Acct:[id number] Age/Sex: 54 / F ADM Date: 5 Loc: CT Room: Type: [facility] Attending Dr: CARRILLO Boyd APRN Copies to: [...] months. Impression dictated by: Champ Hobson Jr., D.ODanica 04/13/2025 2:14 PM Dictation Location: [place] [address] Transcribed By: [facility] 04/13/25 1414 Dictated By: Champ Hobson Jr, DO 04/13/25 1413 Signed By: 04/13/25 1414 [facility] 03-23-2025 Telephone encounter Note Patient called stating she now has both surgery clearances and would like to know when she can schedule surgery for her L TKA ? [phone] [facility] 03-23-2025 Miscellaneous Notes Patient called stating she now has both surgery clearances and would like to know when she can schedule surgery for her L TKA ? [phone] documented in this encounter [facility] 03-19-2025 Note Nurse Consultation N ote [...] naltrexone 1.5 mg oral capsule, See Instructions [facility] ODT, 75 mg, Oral, q24hr, PRN omeprazole, 40 mg, Oral, Daily ondansetron, 4 mg, SubLingual, PRN solifenacin 10 mg Tab, 10 mg= 1 tab(s), Oral, Daily, 11 refills traMADOL 50 mg Tab Ventolin HFA 90 mcg/inh Aerosol, 2 puff(s), Inhalation, QID, PRN Vitamin B1 100 mg Tab, 100 mg= 1 tab(s), Oral, Daily Vitamin D 50,000 intl units (1.25 mg) oral capsule, 46[address] International_Unit= 1 cap(s), Oral, Saturday Allergies Neurontin [...] Protein Urine Dipstick: Negative (03/17/25 15:23:00) Specific [place] Urine Dipstick: 1.015 (03/17/25 15:23:00) Urine Appearance Urine Dipstick: Clear (03/17/25 15:23:00) Urine Color Urine Dipstick: Yellow (03/17/25 15:23:00) Urobilinogen Urine Dipstick: Normal 0.2-1 EU/dl (03/17/25 15:23:00) pH Urine Dipstick: 5 (03/17/25 15:23:00) [facility] 03-17-2025 Hospital Discharge instructions Patient Education 03/17/2025 [...] Follow these instructions at home: Medicines Take cyad-heu-lrcwand and prescription medicines only as told by [...] or the blood stops without treatment. Take aexz-xzv-fxnqeni and prescription medicines only as told by your health care provider. Drink enough fluid to keep your urine pale yellow. This information is not intended to replace advice given to you by your health care provider. Make sure you discuss any questions you have with your health care provider. Document Revised: 04/05/2021 Document Reviewed: 04/05/2021 [employer] Patient Education 2023 [employer]. Follow Up Care 03/16/2025 09:06:54 With:Sofiya Villa PA-C, URL Address: When: Unknown Comments:Schedule cystoF/U in 3 months w/ [facility] 03-17-2025 Note Patient Education Urology Hematuria, Adult [...] these instructions at home: Medicines ??? Take oarb-gom-tmhyode and prescription medicines only as told by [...] the blood stops without treatment. ??? Take aiyq-hmj-ejovfpl and prescription medicines only as told by your health care provider. ??? Drink enough fluid to keep your urine pale yellow. This information is not intended to replace advice given to you by your health care provider. Make sure you discuss any questions you have with your health care provider. Document Revised: 04/05/2021 Document Reviewed: 04/05/2021 [employer] Patient Education ? 2023 [employer]. [facility] 03-16-2025 History of Present illness Narrative Subjective Patient ID: Rock Herrera is a 54 y.o. female. Earline presents today for a controlled substance visit rechecked. She was recently started on tramadol 1 3 times a day for severe osteoarthritis of her knee and torn cartilage of her knee. She is going to need a knee replacement soon. She saw the civil design specialist who wants medical clearance from her gear changer and regulatory agency director 1st. She has not had any recent [...] Urine As above Diabetes mellitus without complication ([facility]) - POCT Hemoglobin A1c Her A1c is great at 5.3%. Continue metformin for now. Chronic obstructive pulmonary disease, unspecified COPD type ([facility]) Stable. Follow up with specialist as directed. [...] drugs of abuse. documented in this encounter [facility] 03-10-2025 History of Present illness Narrative Images [...] foods. Her last colonoscopy was 01/17/2023 at [facility] significant for hemorrhoids and 1 small tubular [...] Date Anxiety Anxiety Arthritis Asthma Bipolar disorder ([facility]) Carpal tunnel syndrome Chronic kidney disease stage 3 COPD (chronic obstructive pulmonary disease) ([facility]) Depression Diabetes mellitus ([facility]) Fibromyalgia GERD (gastroesophageal reflux disease) Heart abnormality 01/24/2020 leaky valve going for testing Hyperlipidemia Hypertension Joint pain Low back pain Mitral valve prolapse Myocardial infarction ([facility]) Neck pain Osteoarthritis Osteoporosis Sleep apnea no cpap Spinal stenosis Vertigo Visual impairment glasses Past Surgical History: Procedure Laterality Date APPENDECTOMY ARTHROSCOPY WITH LATERAL MENISCECTOMY KNEE Right 06/06/2022 Performed by Kurt Chapman MD at [facility] BREAST FIBROADENOMA SURGERY CARDIAC CATHETERIZATION 12/25/2019 normal CARPAL TUNNEL RELEASE Left 08/03/2024 CATARACT EXTRACTION Bilateral CHONDROPLASTY, SYNOVECTOMY Right 06/06/2022 Performed by Kurt Chapman MD at [facility] COLONOSCOPY 2020 in [place]RECTION [place] TOE Right EPIDURAL BLOCK INJECTION HYSTERECTOMY one ovary remains INJECTION BLOCK NERVE KNEE Left Genicular Left 06/05/2024 Performed by Avi Maharaj MD at [facility] INJECTION MEDIAL BRANCH NERVE BLOCK: bilat L45 51 Bilateral 09/25/2019 Performed by Avi Maharaj MD at [facility] INJECTION SI JOINT Bilateral SI Joint Bilateral 03/25/2020 Performed by Avi Maharaj MD at [facility] LAPAROSCOPIC CHOLECYSTECTOMY N/A 03/15/2017 Performed by Karlos Quinones DO at [facility] NEUROMA SURGERY PLANTAR FASCIA RELEASE Bilateral SINUS [...] WEEKLY, Disp: 4 capsule, Rfl: 5 fremanezumab-vfrm (AJOVY AUTOINJECTOR) 225 mg/1.5 mL, 1.5 mL (225 [...] THE EVENING, Disp: 30 tablet, Rfl: 11 hqokxmsk-nfjc-HB-calcium &mins (THERAGRAN-M) 9 mg iron-400 mcg tablet, [...] 10 min Stress: Stress Concern Present (01/24/2023) [employer] - Occupational Stress Questionnaire Feeling of Stress : To some extent Social Connections: Socially Isolated (01/24/2023) Social Connection and Isolation Panel [NHANES] Frequency of Communication with Friends and Family: More than three times a week Frequency of Social Gatherings with Friends and Family: More than three times a week Attends Pentec[employer]al Services: Never Active Member of Clubs or Organizations: No Attends Club or Organization Meetings: Never Marital Status: Interpersonal Safety: Unknown (11/03/2024) Received from [facility] Humiliation, Afraid, Rape, and Kick [...] patient/family/caregiver Referring and communicating with other health coronary care unit nurse Incontinence of feces with fecal urgency [R15.9, R15.2] YI MUELLER [facility] General Surgery [place] This note was created with the assistance of a speech recognition program. While intending to generate a timely document that accurately reflects the content of the visit, no guarantee can be provided that every grammatical or spelling mistake has been or will be identified or corrected. Thank you for your understanding. YI Mueller 03/10/25 0949 documented in this encounter [facility] 03-09-2025 History of Present illness Narrative Images from the original note were not included. HISTORY OF PRESENT ILLNESS: EST PT Rock Herrera is an 54 y.o. @ female. EST PT WITH DR ALCANTARA- [place]IN[place] LT KNEE- PER DR ALCANTARA'S LAST NOTE [...] HS- NO PAIN MEDS She sees a gear changer and regulatory agency director. ALLERGIES: Allergies Allergen Reactions Codeine Hives and [...] Behavior, Mental Status Change, other, Vomiting hallucinate [place] Saline Nasal Gel [Aloe-Sodium Chloride] Facial numbness/tongue [...] CHANGE EVERY 14 DAYS Continuous Glucose Transmitter (A-STARcom G6 transmitter) misc 1 UNIT BY MISCELLANEOUS ROUTE EVERY 3 (THREE) MONTHS. dilTIAZem CD (CARDIZEM CD) 120 mg, Daily doxepin (SILENOR) 3 mg, Oral, Nightly EPINEPHrine (Epipen) 0.3 MG/0.3ML injection syringe INJECT 0.3MG INTO THE APPROPRIATE MUSCLE NEEDED FOR ALLERGIC REACTION UP TO 1 DOSE ergocalciferol (Vitamin D2) 1.25 MG (90589 UT) capsule 1 capsule, Weekly furosemide (LASIX) [...] 75 mg, Oral, Daily PRN nystatin (Mycostatin) [id number] UNIT/ML suspension TAKE 5ML BY MOUTH FOUR [...] Tobacco Use: Medium Risk (03/10/2025) Received from [facility] Patient History Smoking Tobacco Use: Former Smokeless [...] her family physician as well as her gear changer for her comorbidities. We'll see her back [...] or the patient requires discharge to a prison facility, the patient may require to have additional inpatient hospital stay days following the surgery. Physical therapy is contraindicated in this patient''s case because of the mypt-of-ztra articulation of the patient's knee.. Questions answered in laymen terms at the bedside. The diagnosis, home exercise plan and any ongoing restrictions/ recommendations reviewed. If unable to be reached in office, I recommend evaluation at nearest Emergency Room if any symptoms worsened or new symptoms develop for requiring urgent evaluation. documented in this encounter [facility] 03-04-2025 History of Present illness Narrative [...] Behavior, Mental Status Change, other, Vomiting hallucinate [place] Saline Nasal Gel [Aloe-Sodium Chloride] Facial numbness/tongue [...] History: Past Medical History: Diagnosis Date Asthma (HCC) Bipolar disorder ([facility]) Bunion COPD (chronic obstructive pulmonary disease) ([facility]) Depression Diabetes ([facility]) Fallen arches Fibromyalgia GERD (gastroesophageal reflux disease) Hammer toe Hypertension Kidney stones [place] (myocardial infarction) ([facility]) Migraine Mitral valve prolapse Downey's neuroma Onychomycosis Osteoarthritis Oxygen dependent Plantar fasciitis Sleep apnea SVT (supraventricular tachycardia) ([facility]) Tinea pedis Medications: Current Outpatient Medications: calcium [...] Continuous Glucose Sensor (FreeStyle Lilliam 2 Sensor) [facility], USE DIRECTED AND CHANGE EVERY 14 DAYS, Disp: , Rfl: Continuous Glucose Transmitter (Dexcom G6 transmitter) [facility], 1 UNIT BY MISCELLANEOUS ROUTE EVERY 3 (THREE) MONTHS., Disp: , Rfl: dilTIAZem CD (Cardizem CD) 120 MG 24 hr capsule, Take 120 mg by mouth Daily, Disp: , Rfl: EPINEPHrine (Epipen) 0.3 MG/0.3ML injection syringe, INJECT 0.3MG INTO THE APPROPRIATE MUSCLE NEEDED FOR ALLERGIC REACTION UP TO 1 DOSE, Disp: , Rfl: ergocalciferol (Vitamin D2) 1.25 MG (02539 UT) capsule, Take 1 capsule by mouth [...] the evening., Disp: , Rfl: nystatin (Mycostatin) 182118 UNIT/ML suspension, TAKE 5ML BY MOUTH FOUR [...] Martin Arango DPM documented in this encounter [facility] 02-25-2025 History of Present illness Narrative [...] in all four extremities, including at least nurse assessor, finger abductors, biceps, triceps, deltoid, toe flexors [...] prescription for Nurtec will be sent to [facility] in [facility]. 2. Insomnia. She reports difficulty falling asleep and has previously tried tizanidine and cyproheptadine without success. Ambien caused severe insomnia, and primidone led to weight loss. Silenor will be prescribed to help with sleep, and the prescription will be sent to [facility] in [facility]. She is advised that ZzzQuil is safe to take with her current medications. 3. Ajovy for prevention 4. Nurtec for abortive treatments vs Ubrelvy 5 Doxepin 3 mg at bed for sleep 6. I counseled the patient on the possible side effects and interactions of medications. This clinical note was created utilizing [employer]obby documentation system. All information has been thoroughly reviewed, corrected as necessary, and authenticated by the provider to ensure accuracy and completeness. On occasion, Hobby documentation system erroneously drops words or replaces a spoken word with a similar sounding word. Please notify with any questions or concerns regarding this clinical note. documented in this encounter [facility] 02-24-2025 History of Present illness Narrative [...] polyps. She would like to go to [facility] have that done. The specialists that she had before that did it is no longer practicing in the area. She is willing to go to a new specialist. She her Dr. Quinones goes to [facility] and requested him. The following portions of [...] part of colon, unspecified type - [facility] Physicians General Surgery - [place], [place]; Future Refer to surgeon for colonoscopy to screen for colon cancer Diabetes mellitus without complication ([facility]) - Discontinue: blood-glucose meter (TRUE METRIX GLUCOSE [...] for opioid reversal. documented in this encounter [facility] 02-08-2025 Telephone encounter Note She called noting have been sick for 5 days now and cx her last PT today for R shoulder. I noted that and she said she'd like to recover and I informed of her PT eval for R ankle is 02/11/25. [facility] 02-08-2025 Miscellaneous Notes She called noting have been sick for 5 days now and cx her last PT today for R shoulder. I noted that and she said she'd like to recover and I informed of her PT eval for R ankle is 02/11/25. documented in this encounter [facility] 02-04-2025 History of Present illness Narrative [...] with negative improvement. Patient rates pain a 02/25. Allergies: Allergies Allergen Reactions Codeine Hives and [...] Behavior, Mental Status Change, other, Vomiting hallucinate Wil[place] Saline Nasal Gel [Aloe-Sodium Chloride] Facial numbness/tongue [...] History: Past Medical History: Diagnosis Date Asthma ([facility]) Bipolar disorder ([facility]) Bunion COPD (chronic obstructive pulmonary disease) ([facility]) Depression Diabetes ([facility]) Fallen arches Fibromyalgia GERD (gastroesophageal reflux disease) Hammer toe Hypertension Kidney stones [place] (myocardial infarction) ([facility]) Migraine Mitral valve prolapse Downey's neuroma Onychomycosis Osteoarthritis Oxygen dependent Plantar fasciitis Sleep apnea SVT (supraventricular tachycardia) ([facility]) Tinea pedis Medications: Current Outpatient Medications: calcium [...] Continuous Glucose Sensor (FreeStyle Lilliam 2 Sensor) [facility], USE DIRECTED AND CHANGE EVERY 14 DAYS, Disp: , Rfl: Continuous Glucose Transmitter (Dexcom G6 transmitter) [facility], 1 UNIT BY MISCELLANEOUS ROUTE EVERY 3 (THREE) MONTHS., Disp: , Rfl: dilTIAZem CD (Cardizem CD) 120 MG 24 hr capsule, Take 120 mg by mouth Daily, Disp: , Rfl: EPINEPHrine (Epipen) 0.3 MG/0.3ML injection syringe, INJECT 0.3MG INTO THE APPROPRIATE MUSCLE NEEDED FOR ALLERGIC REACTION UP TO 1 DOSE, Disp: , Rfl: ergocalciferol (Vitamin D2) 1.25 MG (91585 UT) capsule, Take 1 capsule by mouth [...] the evening., Disp: , Rfl: nystatin (Mycostatin) 910474 UNIT/ML suspension, TAKE 5ML BY MOUTH FOUR [...] Martin Arango DPM documented in this encounter [facility] 02-01-2025 Telephone encounter Note Pt is past 35 days post op with no refill due to pain management contract with us [facility] 02-01-2025 Miscellaneous Notes Pt is past 35 days post op with no refill due to pain management contract with us documented in this encounter [facility] 01-29-2025 Telephone encounter Note She called noting she has been getting sick this morning and is in the need to cx PT for today. I reminded and she confirmed her next PT 02/02. [facility] 01-29-2025 Miscellaneous Notes She called noting she has been getting sick this morning and is in the need to cx PT for today. I reminded and she confirmed her next PT 02/02. documented in this encounter [facility] 01-25-2025 History of Present illness Narrative [...] to be instructed in home exercise program. Master Pilot Goals: To be met in 10 weeks [...] sign below. Date: documented in this encounter [facility] 01-25-2025 Telephone encounter Note Pt asking for pain med refill please, send to DM in [place] [facility] 01-25-2025 Miscellaneous Notes Pt asking for pain med refill please, send to DM in [place] documented in this encounter [facility] 01-21-2025 Hospital Discharge instructions Patient Education 01/21/2025 12:27:23 Kidney Stones, Biir-wa-Ymci Kidney Stones Kidney stones are rock-like masses [...] Follow these instructions at home: Medicines Take wxln-oje-atswloy and prescription medicines only as told by [...] provider. Document Revised: 03/29/2023 Document Reviewed: 03/29/2023 [employer] Patient Education 2023 [employer]. Follow Up Care 01/05/2025 11:26:46 With:[facility] Maura Address: When: Unknown Comments:For procedure as scheduled. [facility] Renetta 01-21-2025 Evaluation + Plan note Diagnostic Tests PendingUrine Cytology ([facility]) 01/21/25 [facility] 01-21-2025 Note Patient Education Urology Kidney Stones [...] these instructions at home: Medicines ??? Take rbjf-atv-intxvnu and prescription medicines only as told by [...] provider. Document Revised: 03/29/2023 Document Reviewed: 03/29/2023 [employer] Patient Education ? 2023 [employer]. [facility] 01-14-2025 History of Present illness Narrative Patient: [...] Behavior, Mental Status Change, other, Vomiting hallucinate [place] Saline Nasal Gel [Aloe-Sodium Chloride] Facial numbness/tongue [...] disorder Bunion COPD (chronic obstructive pulmonary disease) ([facility]) Depression ([facility]) Diabetes ([facility]) Fallen arches Fibromyalgia GERD (gastroesophageal reflux disease) Hammer toe Hypertension ([facility]) Kidney stones [place] (myocardial infarction) ([facility] Migraine Mitral valve prolapse Downey's neuroma Onychomycosis Osteoarthritis Oxygen dependent Plantar fasciitis Sleep apnea SVT (supraventricular tachycardia) ([facility]) Tinea pedis Medications: Current Outpatient Medications: calcium [...] Continuous Glucose Sensor (FreeStyle Lilliam 2 Sensor) [facility], USE DIRECTED AND CHANGE EVERY 14 DAYS, Disp: , Rfl: Continuous Glucose Transmitter (Dexcom G6 transmitter) [facility], 1 UNIT BY MISCELLANEOUS ROUTE EVERY 3 (THREE) MONTHS., Disp: , Rfl: dilTIAZem CD (Cardizem CD) 120 MG 24 hr capsule, Take 120 mg by mouth Daily, Disp: , Rfl: EPINEPHrine (Epipen) 0.3 MG/0.3ML injection syringe, INJECT 0.3MG INTO THE APPROPRIATE MUSCLE NEEDED FOR ALLERGIC REACTION UP TO 1 DOSE, Disp: , Rfl: ergocalciferol (Vitamin D2) 1.25 MG (64239 UT) capsule, Take 1 capsule by mouth [...] the evening., Disp: , Rfl: nystatin (Mycostatin) 499751 UNIT/ML suspension, TAKE 5ML BY MOUTH FOUR [...] Martin Arango DPM documented in this encounter [facility] 01-05-2025 Telephone encounter Note PT James 01/08/25 w/ Jose Hammond PT. [facility] 01-05-2025 Miscellaneous Notes PT James 01/08/25 w/ Jose Hammond PT. She called noting she had a nerve block procedure today done on her foot. She said her mobility is very limited right now and would like to hold off till she is able to walk and move more freely w/o assistance. Tried to contact to schedule PT Eval for R shoulder; 30 visits / no copay. But had to lm requesting a call back to do so. documented in this encounter [facility] 01-02-2025 Telephone encounter Note Pt did not receive yesterday rx, phone call from pateint and will refill [facility] 01-02-2025 Miscellaneous Notes Pt did not receive yesterday rx, phone call from pateint and will refill documented in this encounter [facility] 01-01-2025 Telephone encounter Note Send prescription of Percocet 10 to [place] [facility] [place] [facility] 01-01-2025 Miscellaneous Notes Send prescription of Percocet 10 to [place] [facility] [place] documented in this encounter [facility] 12-30-2024 Telephone encounter Note She called noting she had a nerve block procedure today done on her foot. She said her mobility is very limited right now and would like to hold off till she is able to walk and move more freely w/o assistance. [facility] 12-29-2024 Telephone encounter Note Tried to contact to schedule PT Eval for R shoulder; 30 visits / no copay. But had to lm requesting a call back to do so. [facility] 12-17-2024 History of Present illness Narrative Patient: [...] Behavior, Mental Status Change, other, Vomiting hallucinate [place] Saline Nasal Gel [Aloe-Sodium Chloride] Facial numbness/tongue [...] Diagnosis Date Asthma ([facility]) Bipolar disorder ([facility] Bunion COPD (chronic obstructive pulmonary disease) ([facility]) Depression ([facility]) Diabetes ([facility]) Difficulty walking Fallen arches Fibromyalgia [...] time., Disp: , Rfl: Continuous Blood Gluc Senior Receptionist (Dexcom G6 tobacco checkout clerk) device, 1 UNIT YEARLY, Disp: , Rfl: Continuous Blood Gluc Sensor (Dexcom G6 Sensor) [facility], USE 1 UNIT DIRECTED AND CHANGE EVERY 10 DAYS, Disp: , Rfl: ergocalciferol (Vitamin D2) 1.25 MG (07570 UT) capsule, Take 1 capsule by mouth [...] oral route., Disp: , Rfl: nystatin (Mycostatin) [id number] UNIT/ML suspension, TAKE 5ML FOUR TIMES A [...] pedal pulses to bilateral feet Neuro: 5.07 [place] Gina monofilament test positive to digits and [...] use of insulin ([facility]) PLAN Patient given prescription for pain medication [...] risks, alternatives, benefits, post op complications and assisted expectations were discussed including but not limited [...] current (date) Date: December 17, 2024 Martin rAango DPM documented in this encounter [facility] 12-15-2024 History of Present illness Narrative [...] substance agreement signed. Diabetes mellitus without complication ([facility]) - Microalbumin - Albumin: Creatinine Urine Ratio; [...] total) before bedtime. documented in this encounter [facility] 12-15-2024 History of Present illness Narrative [facility] [address] [place] [address] Patient: Rock Herrera Sex: female : 1970 [...] Date Anxiety Anxiety Arthritis Asthma Bipolar disorder ([facility]) Carpal tunnel syndrome Chronic kidney disease stage 3 COPD (chronic obstructive pulmonary disease) ([facility]) Depression Diabetes mellitus ([facility]) Fibromyalgia GERD (gastroesophageal reflux disease) Heart abnormality 01/24/2020 leaky valve going for testing Hyperlipidemia Hypertension Joint pain Low back pain Mitral valve prolapse Myocardial infarction ([facility]) Neck pain Osteoarthritis Osteoporosis Sleep apnea no cpap Spinal stenosis Vertigo Visual impairment glasses Past Surgical History: Procedure Laterality Date APPENDECTOMY ARTHROSCOPY WITH LATERAL MENISCECTOMY KNEE Right 06/06/2022 Performed by Kurt Chapman MD at [facility] BREAST FIBROADENOMA SURGERY CARPAL TUNNEL RELEASE Left 08/03/2024 CATARACT EXTRACTION Bilateral CHONDROPLASTY, SYNOVECTOMY Right 06/06/2022 Performed by Kurt Chapman MD at [facility] COLONOSCOPY 2020 in CORRECTION HAMMER TOE Right EPIDURAL BLOCK INJECTION HYSTERECTOMY one ovary remains INJECTION BLOCK NERVE KNEE Left Genicular Left 06/05/2024 Performed by Avi Maharaj MD at [facility] INJECTION MEDIAL BRANCH NERVE BLOCK: bilat L45 51 Bilateral 09/25/2019 Performed by Avi Maharaj MD at [facility] INJECTION SI JOINT Bilateral SI Joint Bilateral 03/25/2020 Performed by Avi Maharaj MD at [facility] LAPAROSCOPIC CHOLECYSTECTOMY N/A 03/15/2017 Performed by Karlos Quinones DO at [facility] NEUROMA SURGERY PLANTAR FASCIA RELEASE Bilateral SINUS [...] 10 min Stress: Stress Concern Present (01/24/2023) [employer] [place] [employer] - Occupational Stress Questionnaire Feeling of Stress : To some extent Social Connections: Socially Isolated (01/24/2023) Social Connection and Isolation Panel [NHANES] Frequency of Communication with Friends and Family: More than three times a week Frequency of Social Gatherings with Friends and Family: More than three times a week Attends [employer] Services: Never Active Member of Clubs or Organizations: No Attends Club or Organization Meetings: Never Marital Status: Interpersonal Safety: Unknown (11/03/2024) Received from [facility] Humiliation, Afraid, Rape, and Kick [...] Reagan 12/15/24 1508 [facility] this encounter [facility] 12-03-2024 History of Present illness Narrative Patient: [...] Behavior, Mental Status Change, other, Vomiting hallucinate [place] Saline Nasal Gel [Aloe-Sodium Chloride] Facial numbness/tongue [...] Diagnosis Date Asthma ([facility]) Bipolar disorder ([facility]) Bunion COPD (chronic obstructive pulmonary disease) ([facility]) Depression ([facility]) Diabetes ([facility]) Difficulty walking Fallen arches Fibromyalgia Hammer toe Kidney stones Migraine ([facility]) Mitral valve prolapse Downey's neuroma Onychomycosis Osteoarthritis [...] time., Disp: , Rfl: Continuous Blood Gluc Senior Receptionist (Dexcom G6 tobacco checkout clerk) device, 1 UNIT YEARLY, Disp: , Rfl: Continuous Blood Gluc Sensor (Dexcom G6 Sensor) [facility], USE 1 UNIT DIRECTED AND CHANGE EVERY 10 DAYS, Disp: , Rfl: ergocalciferol (Vitamin D2) 1.25 MG (13618 UT) capsule, Take 1 capsule by mouth [...] oral route., Disp: , Rfl: nystatin (Mycostatin) [id number] UNIT/ML suspension, TAKE 5ML FOUR TIMES A [...] pedal pulses to bilateral feet Neuro: 5.07 [place] Gina monofilament test positive to digits and [...] use of insulin ([facility]) 3. Acquired deformity of right toe PLAN Discussed conservative and surgical treatment options for patient today including postoperative time frame and surgical procedure in detail. Patient may continue with conservative treatments including [id number] anti-inflammatories and other treatments suggested today. Patient [...] Martin Arango DPM documented in this encounter [facility] 11-19-2024 History of Present illness Narrative [...] Behavior, Mental Status Change, other, Vomiting hallucinate [place] Saline Nasal Gel [Aloe-Sodium Chloride] Facial numbness/tongue [...] Diagnosis Date Asthma ([facility]) Bipolar disorder ([facility]) Bunion COPD (chronic obstructive pulmonary disease) ([facility]) Depression ([facility] Diabetes ([facility]) Difficulty walking Fallen arches Fibromyalgia Hammer toe Kidney stones Migraine ([facility]) Mitral valve prolapse Downey's neuroma Onychomycosis Osteoarthritis [...] time., Disp: , Rfl: Continuous Blood Gluc Senior Receptionist (Dexcom G6 tobacco checkout clerk) device, 1 UNIT YEARLY, Disp: , Rfl: Continuous Blood Gluc Sensor (Dexcom G6 Sensor) [facility], USE 1 UNIT DIRECTED AND CHANGE EVERY 10 DAYS, Disp: , Rfl: ergocalciferol (Vitamin D2) 1.25 MG (93632 UT) capsule, Take 1 capsule by mouth [...] oral route., Disp: , Rfl: nystatin (Mycostatin) [id number] UNIT/ML suspension, TAKE 5ML FOUR TIMES A [...] pedal pulses to bilateral feet Neuro: 5.07 [place] Gina monofilament test positive to digits and [...] use of insulin ([facility]) 3. Downey neuroma, right PLAN Discussed conservative and surgical treatment options for patient today including postoperative time frame and surgical procedure in detail. Patient may continue with conservative treatments including [id number] anti-inflammatories and other treatments suggested today. Patient [...] Martin Arango DPM documented in this encounter [facility] 11-11-2024 History of Present illness Narrative [...] up with a migraine. She states that [employer] usually does work for her. [employer] goes to [email or web address]. She states she is not sleeping that well. MIGARAINES -She states her headaches are better. -2 days after Ajovy she gets a migraine -He has had 6 migraines since lat visit -She states she is still getting a couple headaches 1-2 times a week. -[employer] works well -prior to Ajovy she has [...] mg, Every 24 hours Continuous Glucose Sensor (Biogenic Reagentsyle Lilliam 2 Sensor) [facility] USE DIRECTED AND CHANGE EVERY 14 DAYS Continuous Glucose Transmitter (A-STARcom G6 transmitter) [facility] 1 UNIT BY MISCELLANEOUS ROUTE EVERY 3 (THREE) MONTHS. dilTIAZem CD (CARDIZEM CD) 120 mg, Daily EPINEPHrine (Epipen) 0.3 MG/0.3ML injection syringe INJECT 0.3MG INTO THE APPROPRIATE MUSCLE NEEDED FOR ALLERGIC REACTION UP TO 1 DOSE ergocalciferol (Vitamin D2) 1.25 MG (99429 UT) capsule 1 capsule, Weekly furosemide (LASIX) [...] 25 mg, 4 times daily nystatin (Mycostatin) [id number] UNIT/ML suspension TAKE 5ML BY MOUTH FOUR [...] Behavior, Mental Status Change, other, Vomiting hallucinate [place] Saline Nasal Gel [Aloe-Sodium Chloride] Facial numbness/tongue [...] SCREEN: Past Medical History: Diagnosis Date Asthma ([facility]) Bipolar disorder ([facility] Bunion COPD (chronic obstructive pulmonary disease) ([facility]) Depression ([facility]) Diabetes ([facility]) Fallen arches Fibromyalgia GERD (gastroesophageal reflux disease) Hammer toe Hypertension ([facility]) Kidney stones [place] (myocardial infarction) ([facility]) Migraine ([facility]) Mitral valve prolapse Downey's neuroma Onychomycosis Osteoarthritis Oxygen dependent Plantar fasciitis Sleep apnea SVT (supraventricular tachycardia) ([facility]) Tinea pedis Past Surgical History: [...] pb surgery OTHER SURGICAL HISTORY rt 2,3,4 PA REVISE ULNAR NERVE AT [facility]RIST ulnar nerve [...] Not at risk (11/03/2024) Received from [facility] PHQ-2 Patient Health Questionnaire-2 Score: [...] in all four extremities, including at least nurse assessor, finger abductors, biceps, triceps, deltoid, toe flexors [...] mouth at bedtime documented in this encounter [facility] 11-09-2024 Miscellaneous Notes Patient is having a procedure done on her foot is it still ok to have this done. Probably. What is she having done? It sounded like a bone spur. Yes. I did not see any preop clearance form to sign LM via documented in this encounter [facility] 11-09-2024 Telephone encounter Note Patient is having a procedure done on her foot is it still ok to have this done. [facility] 11-09-2024 Telephone encounter Note Probably. What is she having done? [facility] 11-09-2024 Telephone encounter Note It sounded like a bone spur. [facility] 11-09-2024 Telephone encounter Note Yes. I did not see any preop clearance form to sign [facility] 11-09-2024 Telephone encounter Note LM via VM [facility] [employer] 11-03-2024 Note Attestation signed by Lan [...] well-healed. No drainage or erythema. Patient is pump and still operator to palpation at the base of her right hand. She is nontender over cubital tunnel incision. She is pump and still operator over proximal upper arm. - Reasonable post-surgical [...] in 3 months for clinical check. Mamie Kiesr MD Orthopaedic Surgery, PGY-4 11/03/24 2:02 PM [facility] 10-26-2024 History of Present illness Narrative Subjective [...] orders for this visit: Peripheral arterial disease ([facility]) - Vas art doppler lwr bilat mult [...] her overall health. documented in this encounter [facility] 10-22-2024 Miscellaneous Notes Patient called to get her lidocaine ointment refilled and sent to [facility] [place] She was on a Lidoderm patch not ointment. They are not going to cover it for a patch so she should get Salonpas 4% lidocaine patches [id number]-[id number]. documented in this encounter [facility] 10-22-2024 Telephone encounter Note Patient called to get her lidocaine ointment refilled and sent to [facility] [place] [facility] 10-22-2024 Telephone encounter Note She was on a Lidoderm patch not ointment. They are not going to cover it for a patch so she should get Salonpas 4% lidocaine patches [id number]-[id number]. [facility] 10-12-2024 Evaluation note Diagnosis Onset Date Resolution COPD (chronic obstructive pulmonary disease) acute October 12, 2 025 2:50pm Diastolic dysfunction acute Feb ruary 2024 2:50pm Nicotine dependence, cigarettes, uncomplicated acute October 12, 2 025 2:50pm [facility] Work Phone: [phone]) 149-297502-11-2025 Telephone encounter Note* Telephone Encounter - Odette [...] PT / or if OT is needed. [facility] [id number] Miscellaneous Notes* Telephone Encounter - Odette Jacobs [...] will contact later 09/29. [facility] in [id number] NoteOrthopedic Surgery Subjective Chief complaint: Chief Complaint [...] stiffness, significant with (more content not included)... [facility]-06-2025 Telephone encounter Note* Telephone Encounter - Odette [...] no hearback I will contact later 09/29. [facility] [id number] Note Attestation signed by Lan Rubi MD [...] hand. These symptoms has also affected her nurse assessor strength and she has found herself dropping [...] Belcher DO PGY-3 Physical Medicine and Rehabilitation [facility]01-30-2025 History of Present illness Narrative* Gricelda Manish, PT - 09/17/2024 12:30 PM EST Images [...] to be instructed in home exercise program. [facility] Goals: To be met in 10 weeks Goal 1: Pt to report independence and compliance with home program. Goal 2: Pt to achieve 4+/5 strength left knee flexion and extension to assist with functional mobility and ADL's. Goal 3: Pt to score no less than 40/80 on LEFS indicating improved QOL. Goal 4: Pt to complete Five Time Sit to seat joiner less than 12.0 seconds with arms across [...] Please sign below. Date: documented in this encounterBarn[facility] [id number] History of Present illness Narrative* Robert Giron, [...] going to have a hip replacement in [place] and will need a pre-op clearance The [...] or non compliance. Diabetes mellitus without complication ([facility]) - Hemoglobin A1c; Future Check A1c Essential hypertension - Comprehensive metabolic panel; Future BP at goal-even low. Check CMP Mixed hyperlipidemia - Lipid panel; Future Check lipids Medication management - Drug Screen, Urine; Future Check urine for presence of medication and DOA. Chronic obstructive pulmonary disease, unspecified COPD type ([facility]) Stable. Continue current regimen Current smoker Encouraged to stop smoking. <3 minutes spent discussing [facility] Telephone encounter Note* Telephone Encounter - Odette Jacobs - 09/15/2024 10:48 AM EST She called noting diarrhea and not feeling well; cx PT today. I reminded and she confirmed 09/17/24. [facility] [id number] Miscellaneous Notes* Telephone Encounter - Odette Jacobs - 09/15/2024 10:48 AM EST She called noting diarrhea and not feeling well; cx PT today. I reminded and she confirmed 09/17/24. documented in this encounterBarnes-[facility] [id number] Rock Herrera 1970 F Date Provider Department Center 09/10/2024 LAN HAGEN MP ORTHO MPORTHO No family history on [facility]01-17-2025 Telephone encounter Note* Telephone Encounter - Odette Jacobs - 09/04/2024 9:39 AM EST Called back and asked if she would be able to do the exercises involved w/ her treatment; and she said whenever she walks she feels a significant burn. Per Carlotta, said if unable to cx today and cont on next week. She said she'll be here next week. [facility] [id number] Miscellaneous Notes* Telephone Encounter - Odette Jacobs [...] wait till next week? documented in this [facility]01-17-2025 Telephone encounter Note* Telephone Encounter - Odette Jacobs - 09/04/2024 9:31 AM EST She called noting she had fallen yesterday and her knee is burning today. She asked if she should come to her 2:30 PT today (rs today from cx of 09/03) or wait till next week? [id number] Telephone encounter Note* Telephone Encounter - Odette Jacobs - 09/03/2024 8:51 AM EST She called noting not feeling well and due to the weather would like to cx PT today. I offered a move down on time or move to tomorrow; she rs PT 09/04. [place] [id number] Miscellaneous Notes* Telephone Encounter - Odette Jacobs - 09/03/2024 8:51 AM EST She called noting not feeling well and due to the weather would like to cx PT today. I offered a move down on time or move to tomorrow; she rs PT 09/04. documented in this encounterBarnes-[facility] [id number] History of Present illness Narrative* Gricelda Hammond, [...] to be instructed in home exercise program. [facility] [employer] Goals: To be met in 10 weeks Goal 1: Pt to report independence and compliance with home program. Goal 2: Pt to achieve 4+/5 strength left knee flexion and extension to assist with functional mobility and ADL's. Goal 3: Pt to score no less than 40/80 on LEFS indicating improved QOL. Goal 4: Pt to complete Five Time Sit to seat joiner less than 12.0 seconds with arms across [...] Please sign below. Date: documented in this encounterBarnes-Jewish [facility] [id number] Evaluation + Plan note Extracted from: Title:Pain [...] Date:01/05/2025 01:00:00 PM Scheduled Provider:SHERI JIMENES PA-C Location:[facility] Appointment Type:URO Office Visit [facility] 01-08-2025 NoteConsultation Note Patient: ROCK HERRERA Age: [...] stool, # 120 tab(s), Refills(s) 6, Pharmacy: [facility], 162, cm, 03/30/20 10:05:00 EDT, Height/Length Dosing, 74.2, kg, 03/30/20 10:05:00 EDT, Weight Dosing carvedilol 25 mg Tab: 25 mg = 1 tab(s), Oral, BID, # 60 tab(s), Refills(s) 5, Pharmacy: [facility], 163, cm, 03/05/24 15:26:00 EDT, Height/Length Dosing, 72.8, kg, 03/05/24 15:26:00 EDT, Weight Dosing diltiazem CD 120 mg/24 hours Cap-ER: 120 mg = 1 cap(s), Oral, Daily, # 30 cap(s), Refills(s) 5, Pharmacy: [facility], 163, cm, 01/01/24 11:13:00 EDT, Height/Length Dosing, 75.6, kg, 12/31/23 13:01:00 EDT, Weight Dosing naltrexone 1.5 mg oral capsule: See Instructions, take one tablet daily, # 30 tab(s), Refills(s) 0,Pharmacy: [facility], 163, cm, 03/05/24 15:26:00 EDT, Height/Length Dosing, 72.8, kg, 03/05/24 15:26:00 EDT, Weight Dosing solifenacin 10 mg Tab: 10 mg = 1 tab(s), Oral, Daily, # 30 tab(s), Refills(s) 11, Pharmacy: [facility], 163, cm, 08/13/24 13:14:00 EST, [...] QID, PRN Dizziness m (more content not included)...[facility] Center[facility]: Result Comment: Electronically Signed By: Cady Alva PA-C\.rosi\Date and Time Signed: 08/26/24 12:56 [id number] NoteOrthopedic Surgery 08/03/2024 Revision To Submuscular Transposition, [...] see her back in the clinic 4 wks.[facility] 08-17-2024 NoteOrthopedic Surgery Subjective Chief complaint: Chief [...] her strengthening of the (more content not included)...[facility]12-23-2024 History of Present illness Narrative* Jena Vaz NP - 08/10/2024 2:26 PM EST Referral for neuropsych/creyos memory testing placed and sent to patient for completion. documented in this [facility]12-23-2024 History of Present illness Narrative* Carlos Sanchez [...] mg, Every 24 hours Continuous Glucose Sensor (Biogenic Reagentsyle Lilliam 2 Sensor) [facility] USE DIRECTED AND CHANGE EVERY 14 DAYS Continuous Glucose Transmitter (Dexcom G6 transmitter) [facility] 1 UNIT BY MISCELLANEOUS ROUTE EVERY 3 (THREE) MONTHS. dilTIAZem CD (CARDIZEM CD) 120 mg, Daily EPINEPHrine (Epipen) 0.3 MG/0.3ML injection syringe INJECT 0.3MG INTO THE APPROPRIATE MUSCLE NEEDED FOR ALLERGIC REACTION UP TO 1 DOSE ergocalciferol (Vitamin D2) 1.25 MG (96238 UT) capsule 1 capsule, Weekly furosemide (LASIX) [...] 75 mg, Oral, Daily PRN nystatin (Mycostatin) [id number] UNIT/ML suspension TAKE 5ML BY MOUTH FOUR [...] Behavior, Mental Status Change, other, Vomiting hallucinate [place] Saline Nasal Gel [Aloe-Sodium Chloride] Facial numbness/tongue [...] SCREEN: Past Medical History: Diagnosis Date Asthma ([facility]) Bipolar disorder ([facility] Bunion COPD (chronic obstructive pulmonary disease) ([facility]) Depression ([facility] Diabetes ([facility]) Fallen arches Fibromyalgia GERD (gastroesophageal reflux disease) Hammer toe Hypertension ([facility]) Kidney stones [place] (myocardial infarction) (CMS/HCC) Migraine (CMS/HCC) Mitral valve prolapse Downey's neuroma Onychomycosis Osteoarthritis Oxygen dependent Plantar fasciitis Sleep apnea SVT (supraventricular tachycardia) (CMS/HCC) Tinea pedis Past Surgical History: Procedure Laterality Date APPENDECTOMY BREAST LUMPECTOMY Left 10/2015 benign BREAST LUMPECTOMY Left 02/2016 benign BREAST SURGERY 12/2008 bilateral subareolar ductal exition CARPAL TUNNEL RELEASE x2 COLONOSCOPY 2013 egd/colonoscopy FOOT SURGERY FOOT SURGERY Right GANGLION CYST EXCISION Right 02/2016 wrist HYSTERECTOMY 2005 LITHOTRIPSY OTHER SURGICAL HISTORY left tenex OTHER SURGICAL HISTORY rt pb surgery OTHER SURGICAL HISTORY rt 2,3,4 PA REVISE ULNAR NERVE AT WRIST ulnar nerve [...] Not at risk (06/16/2024) Received from [facility] PHQ-2 Patient Health Questionnaire-2 Score: [...] in all four extremities, including at least nurse assessor, finger abductors, biceps, triceps, deltoid, toe flexors [...] Follow up 3 months. documented in this encounterBarnes-Jewish West County HospitalHavpggjjfr84-60-6287 NoteAddendum created 08/04/24 1211 by Negrito Garcia MD Clinical Note Signed, Intraprocedure Blocks editedCleveland Clinic Foundation12-17-2024 Telephone encounter Note* Telephone Encounter - Jen Gomez - 08/04/2024 9:21 AM EST Patient called in requesting that lidocaine cream be called into her pharmacy for her. [facility] HospitalLodyngwcyn53-19-3258 Miscellaneous Notes* Telephone Encounter - Jen Ruggierotace - 08/04/2024 9:21 AM EST Patient called in requesting that lidocaine cream be called into her pharmacy for her. documented in this encounterBarnes-Jewish West County [id number] NotePatient: Rock Herrera Procedure Summary Date: 08/03/24 Room / Location: [facility] OR [address] [place], [place] [address]C OR Anesthesia Start: 115 Anesthesia Stop: 1314 [...] PACU per anesthesia protocol. No notable events documented.[facility]12-16-2024 Note Patient: Rock Herrera Procedure Summary Date: 08/03/24 Room / Location: [address] [place] Anesthesia Start: 1155 Anesthesia Stop: 1314 Procedures: REVISION TO SUBMUSCULAR [...] direct observation Transport: uneventful Patient condition is: stableCleveland Clinic Foundation12-16-2024 Note Peripheral Block Patient location during procedure: [...] Heart rate change: no Slow fractionated injection: yesCleveland Clinic Foundation12-16-2024 NotePeripheral Block Patient location during procedure: pre-op [...] Heart rate change: no Slow fractionated injection: [facility]12-16-2024 NotePatient: Rock Herrera Procedure Information Date/Time: 08/03/24 1215 Procedures: REVISION TO SUBMUSCULAR TRANSPOSITION, NERVE, ULNAR (Left: Forearm) REVISION RELEASE, CARPAL TUNNEL (Left: Wrist) Location: [address] OR Surgeons: Lan Rubi MD Relevant [...] patient. Plan discussed with CAA. Additional Equipment RequestsCleveland Clinic Foundation12-11-2024 History of Present illness Narrative* Allison Bryant, RETAIL SALES CONSULTANT - 07/29/2024 1:30 PM EST Reason for [...] Oral, Daily ergocalciferol (Vitamin D2) 1.25 MG (30651 UT) capsule 1 capsule, Oral, Weekly furosemide [...] mg, Oral, 4 times daily nystatin (Mycostatin) 700715 UNIT/ML suspension TAKE 5ML BY MOUTH FOUR [...] Behavior, Mental Status Change, other, Vomiting hallucinate [place] Saline Nasal Gel [Aloe-Sodium Chloride] Facial numbness/tongue [...] Change in bowel habits 02/25/2023 Anxiety state ([facility]) 05/01/2011 Anxiety 05/01/2011 Bicipital tenosynovitis 10/22/2013 Attention deficit hyperactivity disorder ([facility]) 10/05/2021 Gastric foreign body 02/25/2023 Esophageal dysmotility 05/21/2022 Gastric bezoar 05/21/2022 Gastroesophageal reflux disease 10/23/2013 Bipolar disorder ([facility]) 10/23/2013 Borderline personality disorder ([facility]) 10/05/2021 Chronic depression ([facility]) 05/01/2011 Chronic obstructive lung disease ([facility]) 10/23/2013 Contracture, right ankle 02/25/2023 Colon polyp 02/25/2023 Chronic, continuous use of opioids 02/28/2015 Current smoker 10/10/2021 Degenerative joint disease of shoulder region 10/22/2013 Diabetes ([facility]) 02/25/2023 Type 2 diabetes mellitus ([facility]) 10/10/2021 Xerostomia 12/14/2020 Vertigo 10/05/2021 [...] 10/23/2013 Plantar fasciitis, bilateral 11/12/2022 Personality disorder ([facility]) 11/12/2022 Peripheral venous insufficiency 05/21/2022 Parotid gland enlargement 12/14/2020 Overweight 01/24/2023 Osteoporosis ([facility]) 02/25/2023 Osteopenia of hip 02/25/2023 Osteochondritis dissecans of right ankle 05/21/2022 Obesity with body mass index 30 or greater 05/21/2022 BMI 30.0-30.9,adult 02/25/2023 Neuropathy 10/05/2021 Nausea and vomiting 02/25/2023 Downey's neuroma of both feet 11/12/2022 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) 01/03/2023 Mitral valve prolapse 10/23/2013 Migraine (CMS/HCC) 04/20/2012 Menopause 02/25/2023 Lumbosacral spondylosis without myelopathy [...] neuropathy (CMS/HCC) 05/21/2022 Diabetes mellitus without complication ([facility]) 02/25/2023 Osteoarthritis 04/12/2020 Deformity of metatarsal 02/25/2023 Gastritis 11/12/2022 Sacral contusion 04/04/2023 Lumbar strain, sequela 04/04/2023 Hyperlipidemia ([facility]) 10/23/2013 Cervical paraspinal muscle spasm 05/02/2023 Lumbar radiculopathy 05/02/2023 Restless leg syndrome 05/02/2023 Drug-induced parkinsonism (HCC) ([facility]) 05/02/2023 Lesion of ulnar nerve, [...] Problems Past Medical History: Diagnosis Date Asthma ([facility]) Bunion COPD (chronic obstructive pulmonary disease) ([facility]) Depression ([facility]) Fallen arches GERD (gastroesophageal reflux disease) Hammer toe Hypertension ([facility]) Kidney stones [place] (myocardial infarction) ([facility]) Downey's neuroma Onychomycosis Oxygen dependent Plantar fasciitis SVT (supraventricular tachycardia) ([facility]) Tinea pedis HISTORY PAST MEDICAL HISTORY SOCIAL HISTORY Past Medical History: Diagnosis Date Asthma ([facility]) Bipolar disorder ([facility] Bunion COPD (chronic obstructive pulmonary disease) ([facility] Depression ([facility]) Diabetes ([facility]) Fallen arches Fibromyalgia GERD (gastroesophageal reflux disease) Hammer toe Hypertension ([facility]) Kidney stones [place] (myocardial infarction) ([facility]) Migraine ([facility]) Mitral valve prolapse Downey's neuroma Onychomycosis Osteoarthritis Oxygen dependent Plantar fasciitis Sleep apnea SVT (supraventricular tachycardia) (CMS/HCC) Tinea pedis Social History Tobacco Use Smoking [...] pb surgery OTHER SURGICAL HISTORY rt 2,3,4 PA REVISE ULNAR NERVE AT WRIST ulnar nerve [...] nursing note reviewed. Exam conducted with a revenue director present. Vitals: Estimated body mass index is [...] of: David Villalobos DO documented in this encounterBarnes-Jewish West County [id number] History of Present illness Narrative* Martin Arango DPM - 06/18/2024 3:00 PM EDT Patient: Rock Herrrea : 1970 PCP: Robert Giron MD SUBJECTIVE [...] Behavior, Mental Status Change, other, Vomiting hallucinate [place] Saline Nasal Gel [Aloe-Sodium Chloride] Facial numbness/tongue [...] Diagnosis Date Asthma ([facility]) Bipolar disorder ([facility]) Bunion COPD (chronic obstructive pulmonary disease) ([facility]) Depression ([facility] Diabetes ([facility]) Difficulty walking Fallen arches Fibromyalgia Hammer toe Kidney stones Migraine ([facility]) Mitral valve prolapse Downey's neuroma [...] time., Disp: , Rfl: Continuous Blood Gluc Senior Receptionist (Dexcom G6 tobacco checkout clerk) device, 1 UNIT YEARLY, Disp: , Rfl: Continuous Blood Gluc Sensor (Dexcom G6 Sensor) [facility], USE 1 UNIT DIRECTED AND CHANGE EVERY 10 DAYS, Disp: , Rfl: ergocalciferol (Vitamin D2) 1.25 MG (39238 UT) capsule, Take 1 capsule by mouth [...] oral route., Disp: , Rfl: nystatin (Mycostatin) 529859 UNIT/ML suspension, TAKE 5ML FOUR TIMES A [...] pedal pulses to bilateral feet Neuro: 5.07 [place] Gina monofilament test positive to digits and [...] use of insulin ([facility]) PLAN Patient to continue with [...] consider Martin Arango DPM documented in this encounterBarnes-Jewish West County HospitalVubindajpw46-57-3694 NoteOrthopaedic Surgery Subjective Pain and New Patient [...] hand. These symptoms has also affected her nurse assessor strength and she has found herself dropping [...] to all digits and the wrist Strength: nurse assessor 5/5, thumb 5/5, interossei 5/5. wrist extension/flexion [...] there is anything different I will contact her.[facility]10-29-2024 NoteUS SOFT TISS HEAD NECK Procedure: US SOFT TISS HEAD NECK; Reason for Exam: Parotid gland enlargement; Xerostomia; Comparison: None IMPRESSION: * OMERACT 1. Normal sonographic appearance of the parotid gland parenchyma. Normal Doppler flow. * 1.0 x 0.7 x 1.0 cm simple appearing left infraparotid cystic lesion. Finalized by Dandre Prabhakar on 06/16/2024 7:56 [facility] 06-15-2024 Telephone encounter Note* Telephone Encounter - [...] next step for her. She was understanding. [facility] HospitalDfspaognzt30-03-0873 Miscellaneous Notes* Telephone Encounter - Janelle Kimmell - 06/15/2024 8:21 AM EDT Rock called [...] her. She was understanding. documented in this encounterBarnes-Jewish West County HospitalAhrmqhlqnf25-91-3082 Telephone encounter Note* Telephone Encounter - Teressa Parikh - 06/09/2024 3:40 PM EDT I did speak with patient and she understood. I did let patient know to contact pain management or her family doctor. [facility] HospitalCesdljjsyj77-52-9242 Miscellaneous Notes* Telephone Encounter - Teressa Parikh [...] over for pain. [facility] [place]. Patient phone number is [phone]. * Telephone Encounter - Teressa Parikh - 06/09/2024 10:38 AM EDT Patient called stating that she is in a lot of pain with her LT leg. Patient stated she has tried ice, heat and lidocaine cream. She stated she had the nerve block test done 06/05. Patient would like some suggestions. Please advise [phone]. documented in this encounterBarnes-Jewish West County HospitalMwhfahxkdq33-43-2345 Telephone encounter Note* Telephone Encounter - Chico Romero NP - 06/09/2024 3:33 PM EDT Needs to follow up with pain management. We will not be sending any medication. [facility] Work Phone: 1(220) 552-544110-22-2024 Telephone encounter Note* Telephone Encounter - Teressa Parikh - 06/09/2024 3:27 PM EDT Patient called again requesting a RX be sent over for pain. [facility] [place]. Patient phone number is [phone]. [facility] HospitalXuhadwismh13-68-0672 Telephone encounter Note* Telephone Encounter - Teressa Parikh - 06/09/2024 10:38 AM EDT Patient called stating that she is in a lot of pain with her LT leg. Patient stated she has tried ice, heat and lidocaine cream. She stated she had the nerve block test done 06/05. Patient would like some suggestions. Please advise [phone]. [facility] HospitalTcsfguoruk30-63-7700 Telephone encounter Note* Telephone Encounter - Amaris Huynh MA - 05/28/2024 1:26 PM EDT Patient calls requesting refill of Ammonium Lactate. (I don't see it in the chart for the Refill ), to [facility]. She says that her feet are really dry and also wants to let you know that her toes still hurt. [facility] HospitalVoiyufmywf13-40-5787 Miscellaneous Notes* Telephone Encounter - Amaris Huynh MA - 05/28/2024 1:26 PM EDT Patient calls requesting refill of Ammonium Lactate. (I don't see it in the chart for the Refill ), to [facility]. She says that her feet are really dry and also wants to let you know that her toes still hurt. documented in this encounterBarnes-Jewish West County HospitalFirrhsyffz13-22-2411 History of Present illness Narrative* Martin Arango [...] Behavior, Mental Status Change, other, Vomiting hallucinate [place] Saline Nasal Gel [Aloe-Sodium Chloride] Facial numbness/tongue [...] Diagnosis Date Asthma ([facility]) Bipolar disorder ([facility] Bunion COPD (chronic obstructive pulmonary disease) ([facility]) Depression ([facility] Diabetes ([facility]) Difficulty walking Fallen arches Fibromyalgia Hammer toe Kidney stones Migraine ([facility]) Mitral valve prolapse Downey's neuroma [...] time., Disp: , Rfl: Continuous Blood Gluc Senior Receptionist (Dexcom G6 tobacco checkout clerk) device, 1 UNIT YEARLY, Disp: , Rfl: Continuous Blood Gluc Sensor (Dexcom G6 Sensor) [facility], USE 1 UNIT DIRECTED AND CHANGE EVERY 10 DAYS, Disp: , Rfl: ergocalciferol (Vitamin D2) 1.25 MG (53485 UT) capsule, Take 1 capsule by mouth [...] within 12 hours or as directed by MDDanica., Disp: 60 patch, Rfl: 11 loperamide (Imodium) [...] oral route., Disp: , Rfl: nystatin (Mycostatin) 311446 UNIT/ML suspension, TAKE 5ML FOUR TIMES A [...] pedal pulses to bilateral feet Neuro: 5.07 [place] Gina monofilament test positive to digits and [...] use of insulin ([facility]) PLAN Pt to d/c abx. [...] Ibuprofen Martin Arango DPM documented in this encounterBarnes-Jewish West County HospitalPxnoujuciy19-74-2382 Telephone encounter Note* Telephone Encounter - Anjelica Rutledge - 05/11/2024 12:28 PM EDT Patient called and states that the Biotin is not helping with Neuropathy. States that it is gettingworse and more frequent. Please advise. [facility] HospitalYayeenzzvu23-51-5082 Miscellaneous Notes* Telephone Encounter - Anjelica Rutledge - 05/11/2024 12:28 PM EDT Patient called and states that the Biotin is not helping with Neuropathy. States that it is gettingworse and more frequent. Please advise. documented in this encounterBarnes-Jewish West County HospitalIdfxvkeoph59-49-8072 Telephone encounter Note* Telephone Encounter - Inessa Fernandez RN - 05/05/2024 4:20 PM EDT [facility] sent will not see pt due to being discharged from the practice. Spoke with pt, she is willing to try [facility] pain clinic and as second choice will see Dr Pink. Will send referral to Dr Maharaj at [facility] HospitalCppsghdqus72-01-2695 Miscellaneous Notes* Telephone Encounter - Inessa Fernandez RN - 05/05/2024 4:20 PM EDT [facility] sent will not see pt due to being discharged from the practice. Spoke with pt, she is willing to try [facility] pain clinic and as second choice will see Dr Pink. Will send referral to Dr Maharaj at [facility] * Telephone Encounter - Verona Castano - 05/05/2024 11:04 AM EDT Patient called stating that a referral was going to be sent to [facility] pain management. She did call over there and they told her that they didn't receive anything. documented in this encounterBarnes-Jewish West County HospitalChoqrprcfq20-69-9337 Telephone encounter Note* Telephone Encounter - Verona Castano - 05/05/2024 11:04 AM EDT Patient called stating that a referral was going to be sent to [facility] pain management. She did call over there and they told her that they didn't receive anything. [facility] HospitalNyrkxmljkg11-18-8247 History of Present illness Narrative* Carlos Sanchez MD - 04/27/2024 2:00 PM EDT Images from the original note were not included. CHIEF COMPLAINT REASON FOR VISIT: Headaches, vertigo, neuropathy HPI: Rock Herrera is a 53 y.o. female who presents for A follow up for migraines, vertigo, RLS, neuropathy, and lumbar radiculopathy. Patient states she has still not gotten her nurtec from [facility]. She states that we need to try [...] Oral, Daily ergocalciferol (Vitamin D2) 1.25 MG (12611 UT) capsule 1 capsule, Oral, Weekly furosemide [...] 75 mg, Sublingual, As needed nystatin (Mycostatin) 539316 UNIT/ML suspension TAKE 5ML BY MOUTH FOUR [...] Behavior, Mental Status Change, other, Vomiting hallucinate [place] Saline Nasal Gel [Aloe-Sodium Chloride] Facial numbness/tongue [...] SCREEN: Past Medical History: Diagnosis Date Asthma ([facility]) Bipolar disorder ([facility]) Bunion COPD (chronic obstructive pulmonary disease) ([facility]) Depression ([facility]) Diabetes ([facility]) Fallen arches Fibromyalgia GERD (gastroesophageal reflux disease) Hammer toe Hypertension ([facility]) Kidney stones [place] (myocardial infarction) ([facility]) Migraine ([facility]) Mitral valve prolapse Downey's neuroma Onychomycosis Osteoarthritis Oxygen dependent Plantar fasciitis Sleep apnea SVT (supraventricular tachycardia) ([facility]) Tinea pedis Past Surgical History: [...] pb surgery OTHER SURGICAL HISTORY rt 2,3,4 PA REVISE ULNAR NERVE AT WRIST ulnar nerve [...] Depression: Not at risk (02/27/2024) Received from [facility] PHQ-2 Total Score: 0 Recent Concern: Depression - At risk (12/18/2023) Received from [facility], [facility] PHQ-2 Total Score: 7 REVIEW OF [...] reflexes: Jeffery's absent. Ankle clonus absent. Coordination Trsbhh-ye-swpo, rapid alternating movements and dsuc-fj-gbjc normal bilaterally without dysmetria. Gait Normal casual, [...] Follow up 3 months documented in this encounterBarnes-Jewish West County HospitalMyksqzcyuh19-23-4175 History of Present illness Narrative* Martin Arango, SALLIE - 04/23/2024 9:20 AM EDT Patient: Rock [...] Behavior, Mental Status Change, other, Vomiting hallucinate [place] Saline Nasal Gel [Aloe-Sodium Chloride] Facial numbness/tongue [...] History: Past Medical History: Diagnosis Date Asthma (CMS/HCC) [...] time., Disp: , Rfl: Continuous Blood Gluc Senior Receptionist (Dexcom G6 tobacco checkout clerk) device, 1 UNIT YEARLY, Disp: , Rfl: Continuous Blood Gluc Sensor (Dexcom G6 Sensor) [facility], USE 1 UNIT DIRECTED AND CHANGE EVERY 10 DAYS, Disp: , Rfl: ergocalciferol (Vitamin D2) 1.25 MG (33134 UT) capsule, Take 1 capsule by mouth [...] oral route., Disp: , Rfl: nystatin (Mycostatin) 968313 UNIT/ML suspension, TAKE 5ML FOUR TIMES A [...] pedal pulses to bilateral feet Neuro: 5.07 [place] Gina monofilament test positive to digits and [...] use of insulin ([facility]) PLAN Pt to d/c abx. [...] boot Martin Arango DPM documented in this encounterBarnes-Jewish West County HospitalHusqyoiaxv61-22-6032 History of Present illness Narrative* Pastora Alcantara, DO - 04/21/2024 1:00 PM EDT Images from the original note were not included. HISTORY OF PRESENT ILLNESS: Rock Herrera is an 53 y.o. @ female. Chief complaint LT knee pain LT Knee: here to discuss options per Ros She sees a gear changer and regulatory agency director. A1c 5.9 on 02/27/24. +Tobacco user. LT [...] wearing a brace, she got this from [facility] orthopedics. She was advised to quit smoking by [facility]. Had cortisone injx in the past without [...] done on 03/27/24. [place]: ER/XR 01/31/24 [facility], MRI/03/27/24/Dr. Zach Manzanares knee arthroscopy (unsure of the year), mickie BAUER, [facility] steroid injections spring 2023, lidocaine patches, [...] mouth Daily ergocalciferol (Vitamin D2) 1.25 MG (56890 UT) capsule Take 1 capsule by mouth [...] 75 mg under the tongue nystatin (Mycostatin) 948278 UNIT/ML suspension TAKE 5ML BY MOUTH FOUR [...] HISTORY: Past Medical History: Diagnosis Date Asthma ([facility]) Bipolar disorder ([facility]) Bunion COPD (chronic obstructive pulmonary disease) ([facility]) Depression ([facility]) [place] Fallen arches Fibromyalgia GERD (gastroesophageal reflux disease) Hammer toe Hypertension ([facility]) Kidney stones [place] (myocardial infarction) ([facility]) Migraine [place] Mitral valve prolapse Downey's neuroma Onychomycosis Osteoarthritis Oxygen dependent Plantar fasciitis Sleep apnea SVT (supraventricular tachycardia) ([facility]) Tinea pedis ALLERGIES: Allergies Allergen [...] Behavior, Mental Status Change, other, Vomiting hallucinate [place] Saline Nasal Gel [Aloe-Sodium Chloride] Facial numbness/tongue [...] left knee dated January 31, 2024 from [facility]. There is medial compartmentcollapse with subchondral sclerosis. There are no fractures detected. I reviewed an MRI of the left knee dated March 27, 2024 from [facility]. There is complete loss of the articular cartilage in the medial compartment with xjaf-dy-lgnv. There is an extruded torn medial meniscus [...] Dr. Alcantara/barbie Alcantara D.O. documented in this encounterBarnes-Jewish West County HospitalScwajiqlyq30-32-8669 History of Present illness Narrative* Pastora Alcantara [...] the elbow (February and March 2024) at [facility] O.T. with no improvement, she notes it made her hand and elbow weaker. She notes she was scheduled for [facility] this year [facility] [facility] but it got cancelled due to not having therapy, [place]: EMG done at Dr. Vince Sanchez on 03/13/23, LT elbow mri [facility] 01/27/24, , O.T. shant snell (February-Mar 2024) LT Knee: here to discuss options per Ros She sees a gear changer and regulatory agency director. A1c 5.9 on 02/27/24. +Tobacco user. She [...] wearing a brace, she got this from [facility] orthopedics. Had 2 steroid injections from [facility] in the past few months without relief. She was advised to quit smoking by [facility]. She was approved for the gel injections but had them on the right and opted to not have them done on the left. Has tried voltaren gel without relief. [facility] of the LT knee and was prescribed lidocaine patches (without relief). She then had an MRI of the LT knee done on 03/27/24. [place]: ER/XR 01/31/24 [facility], MRI/03/27/24/[place], Dr. Mondragon knee arthroscopy (unsure of the year), TYL, heat, [facility] orthopedics steroid injections spring 2023, lidocaine patches, [...] mouth Daily ergocalciferol (Vitamin D2) 1.25 MG (17648 UT) capsule Take 1 capsule by mouth [...] 75 mg under the tongue nystatin (Mycostatin) 199684 UNIT/ML suspension TAKE 5ML BY MOUTH FOUR [...] TAKE WITH MEALS. [DISCONTINUED] Continuous Blood Gluc Senior Receptionist (Dexcom G6 tobacco checkout clerk) device 1 UNIT YEARLY [DISCONTINUED] Continuous Blood Gluc Sensor (Dexcom G6 Sensor) [facility] USE 1 UNIT DIRECTED AND CHANGE EVERY [...] Behavior, Mental Status Change, other, Vomiting hallucinate [place] Saline Nasal Gel [Aloe-Sodium Chloride] Facial numbness/tongue [...] Dr. Alcantara/barbie Alcantara D.O. documented in this encounterBarnes-Jewish West County [id number] History of Present illness Narrative* Cj Zepeda, VELVET CUTTER - 04/13/2024 12:00 PM EDT Subjective Patient [...] up the medial arm. Pain at rest 10 with activities 05/28, she is taking percocet for something else from dr. Arango for recent nail removal of 5 toes. She notes she is dropping things all of the time. Denies using a brace, ice, heat, topical ointments. She did have therapy on the elbow (February and March 2024) at [facility] O.T. with no improvement, she notes it made her hand and elbow weaker. She notes she was schedule for surgery but it got cancelled since she did not have therapy, she wasgoing to have surgery done at [facility]. [place]: EMG done at Dr. Vince Sanchez on 03/13/23, LT elbow mri [facility] 01/27/24, , O.T. shant snell (February-Mar 2024) Objective Left Hand Exam Muscle Strength Hay Sorter: 4-/5 Left Elbow Exam Tests Tinel's sign (cubital tunnel): positive Elbow Musculoskeletal Exam Inspection Left Ecchymosis: none Swelling: none Deformity: none Palpation Left Tenderness: present Ulnar nerve: moderate Range of Motion Left Active Extension: 0 Active Pronation: 90 Passive Pronation: 90 Active Supination: 90 Passive Supination: 90 Strength Left Finger abduction: 4-/5. Hay Sorter strength: 4-/5. Neurovascular Left Radial pulse: normal [...] MRI of the left elbow done at [facility] on 01/27/24 is unremarkable for fracture [...] Alcantara to discuss options. documented in this encounterBarnes-Jewish West County [id number] History of Present illness Narrative* Martin Arango, [...] with negative relief and rates pain a 5/10. Pt is dm2 Patient also presents today [...] Behavior, Mental Status Change, other, Vomiting hallucinate [place] Saline Nasal Gel [Aloe-Sodium Chloride] Facial numbness/tongue [...] Diagnosis Date Asthma ([facility]) Bipolar disorder ([facility]) Bunion COPD (chronic obstructive pulmonary disease) ([facility]) Depression ([facility]) Diabetes (CMS/HCC) Difficulty walking Fallen arches Fibromyalgia [...] time., Disp: , Rfl: Continuous Blood Gluc Senior Receptionist (Dexcom G6 tobacco checkout clerk) device, 1 UNIT YEARLY, Disp: , Rfl: Continuous Blood Gluc Sensor (Dexcom G6 Sensor) [facility], USE 1 UNIT DIRECTED AND CHANGE EVERY 10 DAYS, Disp: , Rfl: ergocalciferol (Vitamin D2) 1.25 MG (49598 UT) capsule, Take 1 capsule by mouth [...] oral route., Disp: , Rfl: nystatin (Mycostatin) [id number] UNIT/ML suspension, TAKE 5ML FOUR TIMES A [...] pedal pulses to bilateral feet Neuro: 5.07 [place] Gina monofilament test positive to digits and [...] anti-inflammatories Martin Arango DPM documented in this encounterBarnes-Jewish West County HospitalLpluiimfua54-23-4594 History of Present illness Narrative* Cj Zepeda NP - 04/08/2024 12:30 PM EDT Subjective Patient ID: Rock Herrera is a 53 y.o. female. LT Knee *Robert Giron Referral She sees a gear changer and regulatory agency director LT knee pain x about 7 months [...] wearing a brace, she got this from [facility] from [facility] orthopedics. [facility] orthopedics and had 2 steroid injections in the past few months without relief. She notes she needed to stop smoking otherwise they would not be able to help her at [facility]. She was approved for the gel injections but had them on the right and opted to not have them done on the left. Has tried voltarengel without relief. Went to [facility] ER on 01/31/24 and had xrays of the LT knee and was prescribed lidocaine patches (without relief). She then had an MRI of the LT knee done on 03/27/24. Intermittent swelling based off of activities. Intermittent catching and locking. Intermittent give way sensation. If the pain is bad enough she will use a walker. [place]: [facility] knee arthroscopy unsure of the year prior to him retiring, TYL, heat, [facility] orthopedics steroid injections spring 2023, lidocaine patches, [...] tear of the medial meniscus. This is ohrd-fc-bpkl with subchondralcyst. there is also an incidental [...] to discuss surgical intervention, documented in this encounterBarnes-Jewish West County HospitalQlkaxufcqu03-23-5195 NoteConsultation Note Patient is presenting with a [...] call with any questions or concerns that arise.[facility]huja Medical CenterComment on above:Result Comment: Electronically Signed By: Andrew Eid DO.br\Date and Time Signed: 03/05/24 15:55 [id number] Evaluation + Plan noteExtracted from: Title:chronic pain [...] Date:07/30/2024 01:45:00 PM Scheduled Provider:Kehinde Davalos MD [facility] Type:Cardiology Follow Up (FT) Appointment Date:01/05/2025 01:00:00 PM Scheduled Provider:SHERI JIMENES PA-C [facility] Appointment Type:URO Office Visit Future Scheduled Tests Radiology* Echo Transthoracic Complete 05/20/23 [facility]05-29-2024 Evaluation + Plan noteExtracted from: Title:Pain Managment [...] Date:01/30/2024 02:15:00 PM Scheduled Provider:En Carmen PA-C [facility] Type:Cardiology Follow Up (FT) Appointment Date:03/05/2024 03:30:00 PM Scheduled Provider:Andrew Eid DO [facility] Type:Pain Management - Follow Up (FT) Appointment Date:01/05/2025 01:00:00 PM Scheduled Provider:SHERI JIMENES PA-C Location[facility] Appointment Type:URO Office Visit Future Scheduled Tests Laboratory* Pancreatic Elastase, Fecal 01/29/23 * Fecal WBC Lactoferrin 01/29/23 * Giardia lamblia, Direct Detection EIA 01/29/23 * O & P Exam, Routine 01/29/23 * Clostridium Difficile PCR 01/29/23 * Enteric Panel by PCR 01/29/23 Radiology* Echo Transthoracic Complete 05/20/23 [facility]05-15-2024 Evaluation + Plan noteExtracted from: Title:Pain Managment [...] Date:01/30/2024 02:15:00 PM Scheduled Provider:En Carmen PA-C [facility] Type:Cardiology Follow Up (FT) Appointment Date:02/26/2024 11:15:00 AM Scheduled Provider:Andrew Eid DO [facility] [place] Appointment Type:Pain Management - Follow Up (FT) Appointment Date:01/05/2025 01:00:00 PM Scheduled Provider:SHERI JIMENES PA-C Location[facility] Appointment Type:URO Office Visit Future Scheduled Tests Laboratory* Pancreatic Elastase, Fecal 01/29/23 * Fecal WBC Lactoferrin 01/29/23 * Giardia lamblia, Direct Detection EIA 01/29/23 * O & P Exam, Routine 01/29/23 * Clostridium Difficile PCR 01/29/23 * Enteric Panel by PCR 01/29/23 Radiology* Echo Transthoracic Complete 05/20/23 [facility]05-14-2024 Hospital Discharge instructions Patient Education 12/31/2023 [...] (electrical nerve stimulation). ?For women, using a dental assistant medical assistant to prevent urine leaks. This is [...] right after experiencing incontinence. General instructions Take fzqb-szy-yitrcwn and prescription medicines only as told by [...] important. Where to find more information National [place] of Diabetes and Digestive and Kidney Diseases: www.niddk.nih.gov [place] [employer] Association: www.urologyhealth.org Contact a health care [...] provider. Document Revised: 03/10/2021 Document Reviewed: 03/10/2021 Ablynx Patient Education 2022 [employer]. Follow Up Care 09/17/2023 08:57:54 With:SHERI JIMENES PA-C, URL Address: [address] [place] [address] [place] [address] When: Unknown [facility] 04-05-2024 Evaluation + Plan noteExtracted from: Title:L4/5 interlaminar epid ural steroid injection Author:Andrew Eid DO. Date:12/11/23 Diagnosis: M54.16, lumbar ra diculopathy Procedure: [...] the epidural space was confirmed using the fdge-ns-ukkkeaubpy technique and 2 cc of air. Injection [...] Date:12/31/2023 01:00:00 PM Scheduled Provider:SHERI JIMENES PA-C Location[facility] Appointment Type:URO Office Visit Appointment Date:01/01/2024 11:00:00 AM Scheduled Provider:Cady Alva PA-C Location:[facility] Appointment Type:Pain Management - Follow Up (FT) Future Scheduled Tests Laboratory* Pancreatic Elastase, Fecal 01/29/23 * Fecal WBC Lactoferrin 01/29/23 * Giardia lamblia, Direct Detection EIA 01/29/23 * O & P Exam, Routine 01/29/23 * Clostridium Difficile PCR 01/29/23 * Enteric Panel by PCR 01/29/23 * CBC w/ Auto Diff 12/25/22 * Comprehensive Metabolic Panel 12/25/22 Radiology* Echo Transthoracic Complete 05/20/23 [facility]03-20-2024 Evaluation + Plan noteExtracted from: Title:Pain [...] Date:12/31/2023 01:00:00 PM Scheduled Provider:SHERI JIMENES PA-C Location[facility] Appointment Type:URO Office Visit Future Scheduled Tests Laboratory* Pancreatic Elastase, Fecal 01/29/23 * Fecal WBC Lactoferrin 01/29/23 * Giardia lamblia, Direct Detection EIA 01/29/23 * O & P Exam, Routine 01/29/23 * Clostridium Difficile PCR 01/29/23 * Enteric Panel by PCR 01/29/23 * CBC w/ Auto Diff 12/25/22 * Comprehensive Metabolic Panel 12/25/22 Radiology* Echo Transthoracic Complete 05/20/23 [facility]02-09-2024 Miscellaneous Notes* Telephone Encounter - Anjelica Rutledge - 09/27/2023 8:08 AM EST Patient left message requesting if she can get refill of Tramadol. Please advise. [phone] documented in this encounterBarnes-Jewish West County HospitalThxxyohjka46-14-1720 Telephone encounter Note* Telephone Encounter - Anjelica Rutledge - 09/27/2023 8:08 AM EST Patient left message requesting if she can get refill of Tramadol. Please advise. [phone] [facility] [id number] History of Present illness Narrative* Martin Arango, DPM - 09/26/2023 3:10 PM EST Patient: [...] Behavior, Mental Status Change, other, Vomiting hallucinate [place] Saline Nasal Gel [Aloe-Sodium Chloride] Facial numbness/tongue [...] Diagnosis Date Asthma ([facility]) Bipolar disorder ([facility]) Bunion COPD (chronic obstructive pulmonary disease) ([facility]) Depression ([facility] Diabetes ([facility]) Difficulty walking Fallen arches Fibromyalgia Hammer toe Kidney stones Migraine ([facility]) Mitral valve prolapse Downey's neuroma [...] time., Disp: , Rfl: Continuous Blood Gluc Senior Receptionist (Dexcom G6 tobacco checkout clerk) device, 1 UNIT YEARLY, Disp: , Rfl: Continuous Blood Gluc Sensor (Dexcom G6 Sensor) [facility], USE 1 UNIT DIRECTED AND CHANGE EVERY 10 DAYS, Disp: , Rfl: ergocalciferol (Vitamin D2) 1.25 MG (38819 UT) capsule, Take 1 capsule by mouth [...] oral route., Disp: , Rfl: nystatin (Mycostatin) 990507 UNIT/ML suspension, TAKE 5ML FOUR TIMES A [...] breath with positive history of tachycardia seeing gear changer for this Pulmonary: Positive history of shortness [...] use of insulin ([facility]) 4. Contracture of right ankle [...] risks, alternatives, benefits, post op complications and watcher automat long goods expectations were discussed including but not limited [...] date and current (date) documented in this encounterBarnes-Jewish West County HospitalNtmmhedflj56-66-0438 Hospital Discharge instructions Patient Education 09/17/2023 08:52:34 [...] Follow these instructions at home: Medicines Take qnam-gkv-chcfocu and prescription medicines only as told by [...] or the blood stops without treatment. Take gpbo-psj-iltlybu and prescription medicines only as told by your health care provider. Drink enough fluid to keep your urine pale yellow. This information is not intended to replace advice given to you by your health care provider. Make sure you discuss any questions you have with your health care provider. Document Revised: 04/05/2021 Document Reviewed: 04/05/2021 [employer] Patient Education 2022 [employer]ise. Follow Up Care 06/13/2023 09:13:04 With:YUDY NORRIS, SHERI Kaminski, URL Address: [address] [place] [address] [phone] When: Unknown Comments:3 mos (restart med) [facility] 01-09-2024 Evaluation note* Encounter Date Diagnosis Assessment Notes Treatment Notes Treatment Clinical Notes Aug, Chronic obstructive pulmonary disease, unspecified (ICD-10 - J44.9) Aug, Tobacco abuse (ICD-1 0 - Z72.0) Stop smoking. Chest CT in 03/2023 showed emphysema, no nodules. Next LDCT screening will be scheduled for 2023. Aug, Diastolic dysfunctio n (ICD-10 - I51.9) Aug, Nicotine dependence, cigarettes, uncomplicated (ICD-10 - F17.210) [employer] Other 07-11-2023 Evaluation note* Encounter Date Diagnosis [...] Nicotine dependence, cigarettes, uncomplicated (ICD-10 - F17.210) [employer] Other 06-01-2023 Hospital Discharge instructions Patient Education [...] worse throughout the day. 01/17/2023 09:45:38 Hemorrhoids, Bisi-lx-Huhk Hemorrhoids Hemorrhoids are swollen veins that may [...] 3 times a day. General instructions Take zfwf-otw-qsmnjtu and prescription medicines only as told by [...] provider. Document Revised: 02/14/2022 Document Reviewed: 02/14/2022 Ablynx Patient Education 2022 [employer]ise. 01/17/2023 09:45:31 Colon Polyps Colon Polyps Colon [...] hard liquor (44 mL). General instructions Take wroo-kms-itmgsbw and prescription medicines only as told by [...] provider. Document Revised: 11/23/2020 Document Reviewed: 11/23/2020 [employer] Patient Education 2022 [employer]ise. Follow Up Care 09/14/2022 14:04:03 With:LITTLE WALSH, HDAVAL Poole, [facility] Address: [address] [place] [address]. [address] [place] [address] When: Unknown Comments:Office will call to schedule follow up appointment [facility]04-05-2023 Evaluation + Plan noteExtracted from: Title:Anesthesia Pre-Op Note - LILLY Author:Reyes Raza DO Date:11/21/22 Plan [place] Society of Anesthesiologists#(ASA) physical status classification: Class III. Anesthetic Preoperative Plan Anesthesia: General. . Anesthetic plan, risks, benefits, and alternatives discussed with the patient and/or family. Risks discussed: nausea, vomiting, headache, sore throat, aspiration, airway. Patient verbalized understanding. Informed consent was given. Consent was signed by the patient. Future Appointments Appointment Date:12/10/2022 02:40:00 PM Scheduled Provider:Inessa Grajeda CNP [place] Appointment Type:BADH Follow Up Appointment Date:01/17/2023 09:50:00 AM Scheduled Provider: Location:[facility] Appointment Type:Surgery FT Appointment Date:01/30/2023 01:20:00 PM Scheduled Provider:SHERI JIMENES PA-C [facility] Appointment Type:URO Office Visit Future Scheduled Tests Laboratory* Clostridium difficile by PCR 05/09/22 * CBC w/ Auto Diff 05/09/22 * Comprehensive Metabolic Panel 05/09/22 [facility]04-05-2023 Hospital Discharge instructions Patient Education 11/21/2022 11:26:16 Foot Cryocuff Patient Instructions - FT (CUSTOM) 11/21/2022 11:26:16 Post Op Patient Instructions - FT (CUSTOM) 11/21/2022 08:48:42 Brown - Post Operative Instructions (Revised 07/29/19) (Custom) ([id number]) (Custom) [place], [place] Martin Arango DPM, FACFAS POST OPERATIVE [...] feel free to call the doctor at: [phone] or [phone] Arango paged. Patient signatureDate Dr.Nicholas Harsh DPM, FACFAS Date Revised: 09-26 [facility]03-13-2023 Hospital Discharge instructions Patient Education 10/29/2022 [...] water added (diluted fruit juice). Eat bland, xwjc-yc-rjlaxn foods in small amounts as you are able. These foods include bananas, applesauce, rice, lean meats, toast, and crackers. Avoid drinking fluids that contain a lot of sugar or caffeine, such as energy drinks, sports drinks, and soda. Avoid alcohol. Avoid spicy or fatty foods. General instructions Take treo-tyu-yoyyxnu and prescription medicines only as told by your health care provider. Rest at home while you recover. Drink enough fluid to keep your urine pale yellow. Breathe slowly and deeply when you feel nauseous. Avoid smelling things that have strong odors. Wash your hands often using soap and water. If soap and water are not available, use hand drywall finisher. Make sure that all people in your [...] recommendations for eating and drinking and take qzia-rtx-jaspifo and prescription medicinesonly as told by your [...] 09/12/2005 Document Revised: 01/13/2019 Document Reviewed: 01/13/2019 Ablynx Patient Education 2020 TransferWise. Follow Up Care 10/02/2022 13:26:11 With:Inessa Grajeda CNP Address: When:1 to 2 weeks Comments:Following colonoscopy. [facility] 03-04-2023 Hospital Discharge instructions Patient [...] Treatment for this condition includes: Antibiotic medicine. Fbtz-zgd-fpttwpa medicines to treat discomfort. Drinking enough water [...] Follow these instructions at home: Medicines Take wugm-dpu-bjugnwr and prescription medicines only as told by [...] 05/15/2006 Document Revised: 07/23/2019 Document Reviewed: 02/12/2019 Ablynx Patient Education 2020 [employer] 10/20/2022 12:23:03 Antibiotic Medicine, Adult Antibiotic Medicine, [...] 04/17/2005 Document Revised: 02/03/2019 Document Reviewed: 08/06/2017 Ablynx Patient Education 2020 [employer]ise. Follow Up Care 10/20/2022 10:33:51 With:ROBERT GIRON Address: [address] [place], [place] [address] [address] [facility] (1) When:10/23/2022 12:22:53 Comments:Call the office [...] any new or worsening symptoms. [facility]03-04-2023 Evaluation + Plan noteExtracted from: Title:ED Note Author:Santos Landry DO Date: Acute UTI (N39.0: Urinary tr act infection, site not specified) Orders: azithromycin, = 1 packet(s), Oral, As Directed, as directed on package labeling, X 5 day(s), # 6 tab(s), Refills(s) 0, Pharmacy: [facility], 163, cm, 10/20/22 10:48:00 EST, Height/Length [...] Appointments Appointment Date:10/23/2022 09:00:00 AM Scheduled Provider: [facility] Appoint[facility] Type:US Abdominal/Pelvis (FT) Appointment Date:10/29/2022 02:40:00 PM Scheduled Provider:Inessa Grajeda CNP [place] Appointment Type:BADH Follow Up Appointment Date:10/30/2022 03:00:00 PM Scheduled Provider:Elliott Solis MD [facility] Type:Cardiology Follow Up (FT) Appointment Date:11/07/2022 02:40:00 PM Scheduled Provider: Location:[facility] Appointment Type:Surgery FT Appointment Date:01/30/2023 01:20:00 PM Scheduled Provider:SHERI JIMENES PA-C [place] Appointment Type:URO Office Visit Diagnostic Tests Pending * Urine Culture 10/20/22 Future Scheduled Tests Laboratory* Clostridium difficile by PCR 05/09/22 * CBC w/ Auto Diff 05/09/22 * Comprehensive Metabolic Panel 05/09/22 Radiology* US Abdomen Complete 10/23/22 [facility]02-24-2023 Hospital Discharge instructions Patient Education 10/12/2022 [...] take to decrease my back pain? Take hsyl-wfx-lxgvdgi or prescription medicines only as told by [...] and in- person support groups through: The [place] Chronic [employer] Association: https://theacpa.org/Support-Groups The U.S. Pain [...] 08/19/2016 Document Revised: 07/18/2018 Document Reviewed: 04/13/2017 [employer] Patient Education 2020 [employer]. Follow Up Care 10/12/2022 12:55:29 With:ROBERT GIRON Address: [address] [place], [place] [address] [address] Business (1) When:10/15/2022 14:38:47 Comments:Call [...] any new or worsening symptoms. [facility]02-24-2023 Evaluation + Plan noteExtracted from: Title:ED [...] Appointments Appointment Date:10/23/2022 09:00:00 AM Scheduled Provider: [facility] Appointment Type:US Abdominal/Pelvis (FT) Appointment Date:10/29/2022 02:40:00 PM Scheduled Provider:Inessa Grajeda CNP [place] Appointment Type:BADH Follow Up Appointment Date:10/30/2022 03:00:00 PM Scheduled Provider:Elliott Solis MD [facility] Type:Cardiology Follow Up (FT) Appointment Date:11/07/2022 02:40:00 PM Scheduled Provider: Location:[facility] Appointment Type:Surgery FT Appointment Date:01/30/2023 01:20:00 PM Scheduled Provider:SHERI JIMENES PA-C [place] [...] Radiology* US Abdomen Complete 10/23/22 [facility]02-14-2023 Hospital Discharge instructions Patient Education 10/02/2022 [...] water added (diluted fruit juice). Eat bland, ujdf-ws-cltxty foods in small amounts as you are able. These foods include bananas, applesauce, rice, lean meats, toast, and crackers. Avoid fluids that contain a lot of sugar or caffeine, such as energy drinks, sports drinks, and soda. Avoid alcohol. Avoid spicy or fatty foods. General instructions Take vfrh-cfg-rqzzrmp and prescription medicines only as told by your health care provider. Drink enough fluid to keep your urine pale yellow. Wash your hands often using soap and water. If soap and water are not available, use hand drywall finisher. Make sure that all people in your [...] eating and drinking to prevent dehydration. Take agrg-noy-fgakszj and prescription medicines only as told by [...] 08/05/2006 Document Revised: 11/27/2019 Document Reviewed: 01/13/2019 [employer] Patient Education 2020 [employer] Follow Up Care 09/21/2022 11:43:03 With:Inessa Grajeda CNP Address: When:1 month [facility] 01-19-2023 Evaluation + Plan noteExtracted from: Title:ANES Post-operative Note Author:Kurt Oseguera MD Date:09/06/22 Plan Transfer/Discharge: Transfer/Discharge Discharge when meets criteria ( To home ). Extracted from: Title:ANES Pre-operative Note Author:Lillie Oseguera MD Date:09/06/22 Plan [place] [employer] (ASA) physical status classification: Class III. Anesthetic Preoperative Plan: Anesthesia General, and Monitored anethesia care. Future Appointments Appointment Date:10/30/2022 03:00:00 PM Scheduled Provider:Elliott Solis MD [facility] Type:Cardiology Follow Up (FT) Appointment Date:01/30/2023 01:20:00 PM Scheduled Provider:SHERI JIMENES PA-C [facility] Appointment Type:URO Office Visit Future Scheduled Tests Laboratory* Fecal WBC Lactoferrin 05/09/22 * Giardia lamblia, Direct Detection EIA 05/09/22 * O & P Exam, Routine 05/09/22 * Clostridium difficile by PCR 05/09/22 * Enteric Panel by PCR 05/09/22 * CBC w/ Auto Diff 05/09/22 * Comprehensive Metabolic Panel 05/09/22 [facility]01-19-2023 Hospital Discharge instructions Patient Education 09/06/2022 09:52:38 Colonoscopy, Care After Surgery Salam (CUSTOM) Colonoscopy Care After Surgery Please read the instructions outlined below and refer to this sheet in the next few weeks. These discharge instructions provide you with general information on [facility] Your doctor may also give you [...] what activities are safe for you. Take tmhi-qem-wlyvuwr and prescription medicines only as told by [...] 02/03/2013 Document Revised: 01/27/2019 Document Reviewed: 01/05/2019 [employer] Patient Education 2020 [employer]. Follow Up Care 06/26/2022 12:25:13 With:Zulema FITCH Address: [address] [place] [address] Business (1) When: Unknown Comments:Office to call for follow-up appointment [facility]11-17-2022 Evaluation note* Encounter Date Diagnosis Assessment Notes Treatment Notes Treatment Clinical Notes Jun, Chronic obstructive pulmonary disease, unspecified (ICD-10 - J44.9) Jun, Tobacco abuse (ICD-10 - Z72.0) Cut back on smoking to goal of stopping, Jun, Diastolic dysfunction (ICD-10 - I51.9) [employer] Other 04-25-2022 Hospital Discharge instructions Patient Education [...] fried and sweet foods. General instructions Take vzzz-dsb-fzzdovj and prescription medicines only as told by [...] 06/01/2010 Document Revised: 11/26/2019 Document Reviewed: 08/21/2018 [employer] Patient Education 2020 [employer]. Follow Up Care 09/04/2021 10:41:00 With:LILI WALSH, Donaldo Moreira, URL Address: [facility] [address], [place] [phone] When:04/12/2022 [facility] 11-09-2021 NoteHNO ID: [id number] Author: Crystal Rodriguez PA-C Service: ? Author Type: Physician Chief Relay Tester Type: Progress Notes Filed: 06/27/2021 4:56 PM Note Text: [facility] NOTE CC: Rock Herrera is a [...] COPD (chronic obstructive pulmonary disease) ([facility]) - Depression - Ana Laura-Danlos [...] Derived Hives - Atomoxetine (more content not included)...[facility]09-01-2021 NoteHNO ID: [id number] Author: RT James(R) Service: ? Author Type: Data Consultant Type: Progress Notes Filed: 04/19/2021 1:56 PM [...] SIGNED BY: RT James(Lillie) April 19, 2021 1:55 [facility]09-01-2021 NoteHNO ID: [id number] Author: Randi Farrell, DO Service: ? Author [...] She will follow-up in a month if [facility] NoteHNO ID: [id number] Author: RT James(Lillie) Service: ? Author Type: Data Consultant Type: Progress Notes Filed: 04/19/2021 1:09 PM [...] James(R) April 19, 2021 1:09 [facility] Future Appointments Appointment Date:12/11/2021 11:45:00 AM Scheduled Provider:Donaldo PEARSON MD Location:[facility] Appointment Type:URO Office Visit Appointment Date:01/11/2022 02:15:00 PM Scheduled Provider:Zulema FITCH [place] [place] [facility] Future Appointments Appointment Date:01/11/2022 02:15:00 PM Scheduled Provider:Zulema FITCH MD [place] [place] [facility] Appointment Type:[facility] Follow Up Appointment Date:04/09/2022 01:45:00 PM Scheduled Provider:Donaldo PEARSON MD Location:[facility] Appointment Type:URO Office Visit [facility] evaluation + Plan note Future Appointments Appointment Date:02/01/2022 08:15:00 AM Scheduled Provider: Location:[facility] Appointment Type:Surgery PAT COVID Testing Appointment Date:02/01/2022 09:00:00 AM Scheduled Provider: Location:[facility] Appointment Type:Surgery FT Appointment Date:02/08/2022 09:40:00 AM Scheduled Provider: [facility] Appointment Type:Surgery FT Appointment Date:04/09/2022 01:45:00 PM Scheduled Provider:Donaldo PEARSON MD Location:[facility] Appointment Type:URO Office Visit [facility] Evaluation + Plan note Future Appointments Appointment Date:02/01/2022 08:15:00 AM Scheduled Provider: [facility] Appointment Type:Surgery PAT COVID Testing Appointment Date:02/01/2022 09:00:00 AM Scheduled Provider: Location:[facility] Appointment Type:Surgery FT Appointment Date:02/08/2022 09:40:00 AM Scheduled Provider: [facility] Appointment Type:Surgery FT Appointment Date:03/06/2022 10:30:00 AM Scheduled Provider:Cady CALIX CNP [facility] Appointment Type:Cardiology Follow Up (FT) Appointment Date:04/09/2022 01:45:00 PM Scheduled Provider:[facility]onal[facility] Future Appointments Appointment Date:02/08/2022 09:30:00 AM Scheduled Provider: Location:[facility] Appointment Type:Surgery FT Appointment Date:03/06/2022 10:30:00 AM Scheduled Provider:Cady CALIX CNP Location[facility] Appointment Type:Cardiology Follow Up (FT) Appointment Date:04/09/2022 01:45:00 PM Scheduled Provider:Donal[facility]SON [facility] Future Appointments Appointment Date:03/06/2022 10:30:00 AM Scheduled Provider:Cady CALIX CNP Location[facility] Appointment Type:Cardiology Follow Up (FT) Appointment Date:03/22/2022 08:15:00 AM Scheduled Provider: Location:[facility] Appointment Type:Surgery PAT COVID Testing Appointment Date:03/29/2022 08:40:00 AM Scheduled Provider: Location:[facility] Appointment Type:Surgery FT Appointment Date:04/09/2022 01:45:00 PM Scheduled Provider:Donaldo PEARSON MD [facility] Future Appointments Appointment Date:03/20/2022 01:00:00 PM Scheduled Provider: [facility] Type:Cardiology Nurse Visit (FT) Appointment Date:03/22/2022 08:15:00 AM Scheduled Provider: Location:[facility] Appointment Type:Surgery PAT COVID Testing Appointment Date:03/29/2022 08:40:00 AM Scheduled Provider: Location:[facility] Appointment Type:Surgery FT Appointment Date:04/09/2022 01:45:00 PM Scheduled Provider:Donaldo PEARSON MD [facility] Type:URO Office Visit Appointment Date:09/06/2022 01:15:00 PM Scheduled Provider:Elliott Solis MD [facility] Type:Cardiology Follow Up (FT) [facility] Future Appointments Appointment Date:03/22/2022 08:15:00 AM Scheduled Provider: Location:[facility] Appointment Type:Surgery PAT COVID Testing Appointment Date:03/29/2022 08:40:00 AM Scheduled Provider: Location:[facility] Appointment Type:Surgery FT Appointment Date:04/09/2022 01:45:00 PM Scheduled Provider:Donaldo PEARSON MD Location:[facility] Appointment Type:URO Office Visit Appointment Date:09/06/2022 01:15:00 PM Scheduled Provider:Elliott Solis MD [facility] Type:Cardiology Follow Up (FT) [facility] Future Appointments Appointment Date:03/29/2022 08:40:00 AM Scheduled Provider: Location:[facility] Appointment Type:Surgery FT Appointment Date:04/09/2022 01:45:00 PM Scheduled Provider:Donaldo PEARSON MD [facility] Type:URO Office Visit Appointment Date:09/06/2022 01:15:00 PM Scheduled Provider:Elliott Solis MD [facility] Type:Cardiology Follow Up (FT) [facility] Future Appointments Appointment Date:05/09/2022 01:40:00 PM Scheduled Provider:Inessa Grajeda CNP [place] [place] [facility] Appointment Type:BAD[facility] Follow Up Appointment Date:05/15/2022 01:30:00 PM Scheduled Provider:Cady CALIX CNP [facility] Type:Cardiology ED Follow Up (FT) Appointment Date:05/16/2022 01:20:00 PM Scheduled Provider:SHERI JIMENES PA-C Location[facility] Appointment Type:URO Office Visit Appointment Date:09/06/2022 01:15:00 PM Scheduled Provider:Elliott Solis MD [facility] Type:Cardiology Follow Up (FT) [facility] Future Appointments Appointment Date:06/11/2022 11:00:00 AM Scheduled Provider: Location:[facility] Appointment Type:Surgery PAT COVID Testing Appointment Date:06/18/2022 09:45:00 AM Scheduled Provider: Location:[facility] Appointment Type:Surgery FT Appointment Date:09/06/2022 01:15:00 PM Scheduled Provider:Elliott Solis MD [facility] Type:Cardiology Follow Up (FT) Appointment Date:10/30/2022 03:00:00 PM Scheduled Provider:Elliott Solis MD [facility] Type:Cardiology Follow Up (FT) Future Scheduled Tests Laboratory* Fecal WBC Lactoferrin 05/09/22 * Giardia lamblia, Direct Detection EIA 05/09/22 * O & P Exam, Routine 05/09/22 * Clostridium difficile by PCR 05/09/22 * Enteric Panel by PCR 05/09/22 * CBC w/ Auto Diff 05/09/22 * Comprehensive Met[facility]22 [facility] Future Appointments Appointment Date:09/06/2022 01:15:00 PM Scheduled Provider:Elliott Solis MD [facility] Type:Cardiology Follow Up (FT) Appointment Date:10/30/2022 03:00:00 PM Scheduled Provider:Elliott Solis MD [facility] Type:Cardiology Follow Up (FT) Appointment Date:01/30/2023 01:20:00 PM Scheduled Provider:SHERI JIMENES PA-C Location[facility] Appointment Type:URO Office Visit Future Scheduled Tests Laboratory* Fecal WBC Lactoferrin 05/09/22 * Giardia lamblia, Direct Detection EIA 05/09/22 * O & P Exam, Routine 05/09/22 * Clostridium difficile by PCR 05/09/22 * Enteric Panel by PCR 05/09/22 * CBC w/ Auto Diff 05/09/22 * Comprehensive Metabolic Panel 05/09/22 [facility] Future Appointments Appointment Date:10/30/2022 03:00:00 PM Scheduled Provider:Elliott Solis MD [facility] Type:Cardiology Follow Up (FT) Appointment Date:01/30/2023 01:20:00 PM Scheduled Provider:SHERI JIMENES PA-C Location[facility] Appointment Type:URO Office Visit Future Scheduled Tests Laboratory* Fecal WBC Lactoferrin 05/09/22 * Giardia lamblia, Direct Detection EIA 05/09/22 * O & P Exam, Routine 05/09/22 * Clostridium difficile by PCR 05/09/22 * Enteric Panel by PCR 05/09/22 * CBC w/ Auto Diff 05/09/22 * Comprehensive Metabolic Panel 05/09/22 [facility] Future Appointments Appointment Date:10/23/2022 09:00:00 AM Scheduled Provider: [facility] Type:US Abdominal/Pelvis (FT) Appointment Date:10/29/2022 02:40:00 PM Scheduled Provider:Inessa Grajeda CNP [place] [place] [facility] Appointment Type:BADH Follow Up Appointment Date:10/30/2022 03:00:00 PM Scheduled Provider:Elliott Solis MD [facility] Type:Cardiology Follow Up (FT) Appointment Date:10/31/2022 03:15:00 PM Scheduled Provider: Location:[facility] Appointment Type:Surgery PAT COVID Testing Appointment Date:11/07/2022 02:40:00 PM Scheduled Provider: Location:[facility] Appointment Type:Surgery FT Appointment Date:01/30/2023 01:20:00 PM Scheduled Provider:SHERI JIMENES PA-C Location[facility] Appointment Type:URO Office Visit Future Scheduled Tests Laboratory* Fecal WBC Lactoferrin 05/09/22 * Giardia lamblia, Direct Detection EIA 05/09/22 * O & P Exam, Routine 05/09/22 * Clostridium difficile by PCR 05/09/22 * Enteric Panel by PCR 05/09/22 * CBC w/ Auto Diff 05/09/22 * Comprehensive Metabolic Panel 05/09/22 Radiology* US Abdomen Complete 10/23/22 [facility] evaluation + Plan note Future Appointments Appointment Date:10/30/2022 08:00:00 AM Scheduled Provider: Location[facility] Appointment Type:US Abdominal/Pelvis (FT) Appointment Date:10/30/2022 03:00:00 PM Scheduled Provider:Elliott Solis MD [facility] Type:Cardiology Follow Up (FT) Appointment Date:11/07/2022 02:40:00 PM Scheduled Provider: Location:[facility] Appointment Type:Surgery FT Appointment Date:12/10/2022 02:40:00 PM Scheduled Provider:Inessa Grajeda CNP Location:[facility] Appointment Type:[facility] Follow Up Appointment Date:01/30/2023 01:20:00 PM Scheduled Provider:SHERI JIMENES PA-C Location[facility] Appointment Type:URO Office Visit Future Scheduled Tests Laboratory* Clostridium difficile by PCR 05/09/22 * CBC w/ Auto Diff 05/09/22 * Comprehensive Metabolic Panel 05/09/22 Radiology* US Abdomen Complete 10/30/22 [facility] [employer] evaluation + Plan note Future Appointments Appointment Date:11/07/2022 02:40:00 PM Scheduled Provider: Location:[facility] Appointment Type:Surgery FT Appointment Date:11/09/2022 10:00:00 AM Scheduled Provider: [facility] Type:US Abdominal/Pelvis (FT) Appointment Date:12/10/2022 02:40:00 PM Scheduled Provider:Inessa Grajeda CNP Location:[facility] Appointment Type:[facility] Follow Up Appointment Date:01/30/2023 01:20:00 PM Scheduled Provider:SHERI JIMENES PA-C [facility] Type[facility]O Office Visit Future Scheduled Tests Laboratory* Clostridium difficile by PCR 05/09/22 * CBC w/ Auto Diff 05/09/22 * Comprehensive Metabolic Panel 05/09/22 Radiology* US Abdomen Complete 11/09/22 [facility] Future Appointments Appointment Date:12/10/2022 02:40:00 PM Scheduled Provider:Inessa Grajeda CNP [place] [place] [facility] Appointment Type:BAD Follow Up Appointment Date:01/17/2023 09:50:00 AM Scheduled Provider: Location:[facility] Appointment Type:Surgery FT Appointment Date:01/30/2023 01:20:00 PM Scheduled Provider:SHERI JIMENES PA-C Location[facility] Appointment Type:URO Office Visit Future Scheduled Tests Laboratory* Clostridium difficile by PCR 05/09/22 * CBC w/ Auto Diff 05/09/22 * Comprehensive Metabolic Panel 05/09/22 [facility] Future Appointments Appointment Date:01/30/2023 01:20:00 PM Scheduled Provider:SHERI JIMENES PA-C Location[facility] Appointment Type:URO Office Visit Appointment Date:02/06/2023 02:00:00 PM Scheduled Provider:Inessa Grajeda CNP [place] [place] [facility] Appointment Type:[facility] Follow Up Future Scheduled Tests Laboratory* Clostridium difficile by PCR 05/09/22 * CBC w/ Auto Diff 05/09/22 * CBC w/ Auto Diff 12/25/22 * Comprehensive Metabolic Panel 05/09/22 * Comprehensive Metabolic Panel 12/25/22 [facility] Future Appointments Appointment Date:06/14/2023 11:00:00 AM Scheduled Provider: [facility] Type:CV Holter/Event (FT) Appointment Date:07/25/2023 11:45:00 AM Scheduled Provider:Elliott SOLIS MD [facility] Type:Cardiology Follow Up (FT) Future Scheduled Tests Laboratory* Pancreatic Elastase, Fecal 01/29/23 * Fecal WBC Lactoferrin 01/29/23 * Giardia lamblia, Direct Detection EIA 01/29/23 * O & P Exam, Routine 01/29/23 * Clostridium Difficile PCR 01/29/23 * Enteric Panel by PCR 01/29/23 * CBC w/ Auto Diff 12/25/22 * Comprehensive Metabolic Panel 12/25/22 Radiology* Echo Transthoracic Complete 05/20/23 [facility] Future Appointments Appointment Date:07/25/2023 11:45:00 AM Scheduled Provider:Elliott SOLIS MD [facility] Type:Cardiology Follow Up (FT) Appointment Date:07/30/2023 02:00:00 PM Scheduled Provider:SHERI JIMENES PA-C Location[facility] Appointment Type:URO Office Visit Future Scheduled Tests Laboratory* Pancreatic Elastase, Fecal 01/29/23 * Fecal WBC Lactoferrin 01/29/23 * Giardia lamblia, Direct Detection EIA 01/29/23 * O & P Exam, Routine 01/29/23 * Clostridium Difficile PCR 01/29/23 * Enteric Panel by PCR 01/29/23 * CBC w/ Auto Diff 12/25/22 * Comprehensive Metabolic Panel 12/25/22 Radiology* Echo Transthoracic Complete 05/20/23 [facility] Future Appointments Appointment Date:07/30/2023 02:00:00 PM Scheduled Provider:SHERI JIMENES PA-C Location[facility] Appointment Type:URO Office Visit Future Scheduled Tests Laboratory* Pancreatic Elastase, Fecal 01/29/23 * Fecal WBC Lactoferrin 01/29/23 * Giardia lamblia, Direct Detection EIA 01/29/23 * O & P Exam, Routine 01/29/23 * Clostridium Difficile PCR 01/29/23 * Enteric Panel by PCR 01/29/23 * CBC w/ Auto Diff 12/25/22 * Comprehensive Metabolic Panel 12/25/22 Radiology* Echo Transthoracic Complete 05/20/23 [facility] Future Appointments Appointment Date:12/31/2023 01:00:00 PM Scheduled Provider:SHERI JIMENES PA-C Location[facility] Appointment Type:URO Office Visit Future Scheduled Tests Laboratory* Pancreatic Elastase, Fecal 01/29/23 * Fecal WBC Lactoferrin 01/29/23 * Giardia lamblia, Direct Detection EIA 01/29/23 * O & P Exam, Routine 01/29/23 * Clostridium Difficile PCR 01/29/23 * Enteric Panel by PCR 01/29/23 * CBC w/ Auto Diff 12/25/22 * Comprehensive Metabolic Panel 12/25/22 Radiology* Echo Transthoracic Complete 05/20/23 [facility] evaluation + Plan note Future Appointments Appointment Date:01/01/2024 11:00:00 AM Scheduled Provider:Cady Alva PA-C [facility] Appointment Type:Pain Management - Follow Up (FT) Appointment Date:01/30/2024 02:15:00 PM Scheduled Provider:En Carmen PA-C [facility] Type:Cardiology Follow Up (FT) Appointment Date:01/05/2025 01:00:00 PM Scheduled Provider:SHERI JIMENES PA-C Location[facility] Appointment Type:URO Office Visit Future Scheduled Tests Laboratory* Pancreatic Elastase, Fecal 01/29/23 * Fecal WBC Lactoferrin 01/29/23 * Giardia lamblia, Direct Detection EIA 01/29/23 * O & P Exam, Routine 01/29/23 * Clostridium Difficile PCR 01/29/23 * Enteric Panel by PCR 01/29/23 Radiology* Echo Transthoracic Complete 05/20/23 [facility] evaluation + Plan note Future Appointments Appointment Date:03/05/2024 03:30:00 PM Scheduled Provider:Andrew Eid DO Location:[facility] [place] Appointment Type:Pain Management - Follow Up (FT) Appointment Date:07/30/2024 01:45:00 PM Scheduled Provider:Kehinde Davalos MD [facility] Type:Cardiology Follow Up (FT) Appointment Date:01/05/2025 01:00:00 PM Scheduled Provider:SHERI JIMENES PA-C Location[facility] Appointment Type:URO Office Visit Future Scheduled Tests Radiology* Echo Transthoracic Complete 05/20/23 [facility] Future Appointments Appointment Date:08/26/2024 08:15:00 AM Scheduled Provider:Cady Alva PA-C Location[facility] [place] Appointment Type:Pain Management - Follow Up (FT) Appointment Date:01/05/2025 01:00:00 PM Scheduled Provider:SHERI JIMENES PA-C Location[facility] Appointment Type:URO Office Visit [facility] Evaluation + Plan note Future Appointments Appointment Date:01/21/2025 11:40:00 AM Scheduled Provider:SHERI JIMENES PA-C Location[facility] Appointment Type:URO Office Visit [facility] evaluation + Plan note Future Appointments Appointment Date:03/19/2025 02:00:00 PM Scheduled Provider:En Carmen PA-C [facility] [place] Appointment Type:Cardiology Follow Up (FT) [facility] evaluation noteNo assessment information [facility] Work Phone: Evaluckdzi noteNo InformationNosamaritan hospital [place] [employer] Other Evaluation note* Diagnosis Chronic bilateral low back pain with bilateral sciatica Diabetic peripheral neuropathy (CMS/HCC) Type II or unspecified type diabetes mellitus with neurological manifestations, not stated as uncontrolled Lumbar radiculopathy Thoracic or lumbosacral neuritis or radiculitis, unspecified documented in this encounter [facility] Healthcare[facility]* Diagnosis Hav (hallux abducto valgus), right- Primary Plantar fasciitis Plantar fascial fibromatosis Diabetes 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 polyneuropathy, with long-term current use of insulin (CMS/HCC) Contracture of right ankle Bone spur of right foot documented in this encounter [facility] HealthcareEvaluation note* Diagnosis Chronic bilateral low back pain with bilateral sciatica Diabetic peripheral neuropathy (CMS/HCC) Type II or unspecified type diabetes mellitus with neurological manifestations, not stated as uncontrolled Lumbar radiculopathy Thoracic or lumbosacral neuritis or radiculitis, unspecified documented in this encounter [facility] HealthcareEvaluation note* Diagnosis Pain Generalized pain documented in this [facility] Diagnosis Right elbow pain Pain in joint, upper arm [facility] this [facility] Diagnosis Xerosis cutis- Primary Other specified disease of sebaceous glands documented in this encounter [facility] HealthcareEvaluation [facility]* Diagnosis Acquired deformity of right toe- Primary Diabetes 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 polyneuropathy, with long-term current use of insulin ([facility]) documented in this encounter [facility] HealthcareEvaluation note* Diagnosis Well woman exam with routine gynecological exam Routine gynecological examination H/O: hysterectomy Acquired absence of both cervix and uterus Osteoporosis, post-menopausal ([facility]) Senile osteoporosis documented in this encounter [facility] HealthcareEvaluation note* Diagnosis Toe pain, left- Primary Pain in soft tissues of limb Toe pain, right Pain in soft tissues of limb Capsulitis of metatarsophalangeal (MTP) joint of right foot Paronychia, toe, right Paronychia of toe of left foot documented in this encounter [facility] HealthcareEvaluation note* Diagnosis Left knee pain, unspecified chronicity- Primary Arthritis of left knee Toe pain, left- Primary Pain in soft tissues of limb Toe pain, right Pain in soft tissues of limb Capsulitis of metatarsophalangeal (MTP) joint of right foot Paronychia, toe, right Paronychia of toe of left foot documented in this encounter [facility] HealthcareEvaluation note* Diagnosis Left elbow pain- Primary Pain in joint, upper arm Left wrist pain Pain in joint, forearm Ulnar neuropathy at elbow of left upper extremity Carpal tunnel syndrome of left wrist documented in this encounter [facility] HealthcareEvaluation note* Diagnosis Left wrist pain- Primary Pain in joint, forearm Left knee pain, unspecified chronicity Ulnar neuropathy at elbow of left upper extremity documented in this encounter [facility] HealthcareEvaluation note* Diagnosis Arthritis of left knee- Primary Chronic pain of left knee documented in this encounter [facility] HealthcareEvaluation note* Diagnosis Chronic pain of left [...] use of insulin ([facility]) documented in this encounter [facility] HealthcareEvaluation note* Diagnosis Capsulitis of metatarsophalangeal (MTP) [...] stated as uncontrolled [facility] Diagnosis Left knee pain, unspecified chronicity- Primary documented in this encounter [facility] HealthcareEvaluation note* Diagnosis Left knee pain, unspecified chronicity- Primary documented in this encounter [facility] HealthcareEvaluation note* Diagnosis Left knee pain, unspecified chronicity- Primary documented in this encounter [facility] HealthcareEvaluation note* Diagnosis CELINE (obstructive sleep apnea)- Primary Obstructive sleep apnea (adult) (pediatric) Chronic migraine without aura without status migrainosus, not intractable ([facility]) Cognitive decline Lumbar radiculopathy Thoracic or lumbosacral neuritis or radiculitis, unspecified documented in this encounter [facility] HealthcareEvaluation note* Diagnosis Anxiety- Primary Anxiety state, unspecified Diabetes mellitus without complication ([facility]) Type II or unspecified type diabetes mellitus without mention of complication, not stated as uncontrolled Essential hypertension Unspecified essential hypertension Mixed hyperlipidemia Medication management Chronic obstructive pulmonary disease, unspecified COPD type ([facility]) Abnormality of gait and mobility Current smoker documented in this encounter [facility] SystemEvaluation note* Diagnosis Left knee pain, unspecified chronicity- Primary Arthritis of left knee Chronic pain of left knee documented in this encounter [facility] HealthcareEvaluation note* Diagnosis Type 2 diabetes mellitus with hyperglycemia, without long-term current use of insulin ([facility]) documented in this encounter [facility] System[facility] note* Diagnosis Diabetes mellitus without complication ([facility])- Primary Type II or unspecified type diabetes mellitus without mention of complication, not stated as uncontrolled documented in this encounter [facility] SystemEvaluation note* Diagnosis Left knee pain, unspecified chronicity- Primary Arthritis of left knee Chronic pain of left knee documented in this encounter [facility] HealthcareEvaluation note* Diagnosis Pain in left leg- Primary documented in this encounter [facility] note* Diagnosis Onset Date Resolution Status Admit Date COPD (chronic obstructive pulmonary disease) acute September 2:50pm Diastolic dysfunction acute Feb ruary 2024 2:50pm Nicotine dependence, cigarettes, uncomplicated acute Februa ry 2024 2:50pm [facility] Work Phone: Evaluation note* Diagnosis Type 2 diabetes mellitus with hyperglycemia, without long-term current use of insulin ([facility]) [facility] Diagnosis Lumbar radiculopathy- Primary Thoracic or lumbosacral neuritis or radiculitis, unspecified PHN (postherpetic neuralgia) ([facility]) Herpes zoster with other nervous system complications Diabetic peripheral neuropathy ([facility]) Type II or unspecified type diabetes mellitus with neurological manifestations, not stated as uncontrolled documented in this encounter [facility] HealthcareEvaluation note* Diagnosis Peripheral arterial disease ([facility])- Primary Unspecified peripheral vascular disease Anxiety Anxiety state, unspecified Medication monitoring encounter Encounter for therapeutic drug monitoring Contusion of right hip, initial encounter Candidal intertrigo Candidiasis of skin and nails Overweight documented in this encounter [facility] SystemEvaluation note* Diagnosis Intractable chronic migraine without aura and without status migrainosus ([facility])- Primary Acquired deformity of right toe- Primary Diabetes 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 polyneuropathy, with long-term current use of insulin ([facility]) documented in this encounter [facility] HealthcareEvaluation note* Diagnosis Intractable chronic migraine without aura and without status migrainosus ([facility])- Primary Acquired deformity of right toe- Primary Diabetes 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 polyneuropathy, with long-term current use of insulin ([facility]) documented in this encounter [facility]* Diagnosis Acquired deformity of right toe- Primary Diabetes 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 polyneuropathy, with long-term current use of insulin ([facility]) Downey neuroma, right documented in this encounter [facility] HealthcareEvaluation note* Diagnosis Downey neuroma, right- Primary Diabetes 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 polyneuropathy, with long-term current use of insulin ([facility]) Acquired deformity of right toe Paronychia, toe, right documented in this encounter [facility]* Diagnosis Cervical spondylosis without myelopathy- Primary documented in this encounter [facility] note* Diagnosis Anxiety- Primary Anxiety state, unspecified Diabetes mellitus without complication ([facility]) Type II or unspecified type diabetes mellitus without mention of complication, not stated as uncontrolled Enthesopathy of elbow Unspecified enthesopathy of elbow documented in this encounter [facility] SystemEvaluation note* Diagnosis Downey neuroma, right- Primary Acquired deformity of right toe Paronychia, toe, right Diabetes 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 polyneuropathy, with long-term current use of insulin ([facility]) documented in this encounter [facility]* Diagnosis Anxiety Anxiety state, unspecified documented in this encounter [facility] SystemEvaluation note* Diagnosis Downey neuroma, right- Primary Downey neuroma, right- Primary Acquired deformity of right toe Paronychia, toe, right Diabetes 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 polyneuropathy, with long-term current use of insulin ([facility]) documented in this encounter [facility]* Diagnosis Downey neuroma, right- Primary Downey neuroma, right- Primary Acquired deformity of right toe Paronychia, toe, right Diabetes 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 polyneuropathy, with long-term current use of insulin ([facility]) documented in this encounter [facility] [...] polyneuropathy, with long-term current use of insulin ([facility]) documented in this encounter [facility] [...] HealthcareEvaluation note* Diagnosis Diabetes mellitus without complication ([facility]) Type II or unspecified type diabetes mellitus without mention of complication, not stated as uncontrolled [facility]* Diagnosis Chest wall pain- Primary Painful respiration Complex tear of medial meniscus of left knee, sequela Polyp of colon, unspecified part of colon, unspecified type Diabetes mellitus without complication ([facility]) Type II or unspecified type diabetes mellitus without mention of complication, not stated as uncontrolled [facility]* Diagnosis Intractable chronic migraine without aura and without status migrainosus- Primary Primary insomnia Persistent disorder of initiating or maintaining sleep Mild ankle sprain, right, initial encounter- Primary Paronychia, toe, right Diabetes 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 polyneuropathy, with long-term current use of insulin ([facility]) documented in this encounter [facility] HealthcareEvaluation note* Diagnosis Mild ankle sprain, right, initial encounter- Primary Diabetes 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 polyneuropathy, with long-term current use of insulin ([facility]) Contracture of right ankle documented in this encounter [facility] HealthcareEvaluation note* Diagnosis Incontinence of feces with fecal urgency- Primary Altered bowel habits Polyp of colon, unspecified part of colon, unspecified type documented in this encounter [facility] SystemEvaluation note* Diagnosis Arthritis of left knee- Primary Acute pain of left knee documented in this encounter [facility] HealthcareEvaluation note* Diagnosis Complex tear of medial meniscus of left knee, sequela documented in this encounter [facility] SystemEvaluation note* Diagnosis Lumbosacral radiculopathy at L5- Primary Osteoarthritis, unspecified osteoarthritis type, unspecified site Diabetes mellitus without complication ([facility]) Type II or unspecified type diabetes mellitus without mention of complication, not stated as uncontrolled Chronic obstructive pulmonary disease, unspecified COPD type ([facility]) Anxiety Anxiety state, unspecified [facility]* Diagnosis Complex tear of medial meniscus of left knee, sequela documented in this [facility]* Diagnosis Complex tear of medial meniscus of left knee, sequela documented in this [facility]* Diagnosis Complex tear of medial meniscus of left knee, sequela documented [facility]* Diagnosis Type 2 diabetes mellitus with diabetic mononeuropathy, without long-term current use of insulin (CMS-HCC) [facility] this [facility]* Diagnosis Anxiety Anxiety state, unspecified documented in this encounter [facility] note* Diagnosis Onset Date Resolution Status Admit Date COPD (chronic obstructive pulmonary disease) acute April 3:03pm Diastolic dysfunction acute Sep tember 2024 3:03pm Nicotine dependence in remission acute April 26 025 3:03pm Pulmonary hypertension acute Se pt2024 3:03pm [facility] Work Phone: [facility] general Narrative - Reported* Type Description Date [...] History type II diabetes Surgical History Hysterectomy 2005 Surgical History Apendectomy 2012 Surgical History Ulnar [...] Hospitalization History see above surgical histo ry [employer] Other [facility] general Narrative - Reported* Type Description Date [...] Hospitalization History see above surgical histo ry [employer] Other Hospital course Narrative No data available for this section [facility] No data available for this section [facility]ructionsNot on filedocumented in this encounter [facility] [...] data available for this section [facility] (narrative)* Diagnostic Procedure Only (Routine) - Closed Specialty Diagnoses / Procedures Referred By Contac t Referred To Contact XR IMAGING Diagnoses Pain Procedures XR SHOULDER GENERAL 3V OR MORE AP/TRUE AP/OTHER RT X-RAY SHOULDER COMPLET MIN 2 VIEWS Randi Farrell, DO [address] [place] [address] [place] [address] Referral ID Status Reason Start Date Expiration Date V isits Requested Visits Authorized Closed Auto-Generate d Referral 04/17/2021 05/17/2022 1 1 [facility] for referral (narrative)* Diagnostic Procedure Only (Routine) - Closed Specialty Diagnoses / Procedures Referred By Contac t Referred To Contact XR IMAGING Diagnoses Right elbow pain Procedures XR ELBOW SPECIAL VIEWS AP/LAT/OTHER RT X-RAY ELBOW MINIMUM 3 VIEWS Randi Farrell DO [address] [place] [address] [place] [address] Referral ID Status Reason Start Date Expiration Date V isits Requested Visits Authorized Closed Auto-Generate d Referral 04/19/2021 05/19/2022 1 1 [facility] for referral (narrative)* Consultation (Routine) - Pending Review Specialty Diagnoses / Procedures Referred By Contac t Referred To Contact Pain Medicine Diagnoses Primary osteoarthritis of left knee Procedures PA OFFICE/OUTPATIENT [facility] 60 MINUTES Pastora Alcantara DO [address] [address] Candy Turner MD [address] [place] [address], [address], [place] [address] Referral ID Status Reason Start Date Expiration Date Visits Requested Visits Authorized [id number] Pending Review Consult and Treat 04/21/2024 10/18/2024 1 1 [facility] for referral (narrative)* Consultation (Routine) - Authorized Specialty Diagnoses / Procedures Referred By Contac t Referred To Contact Pain Medicine Diagnoses Primary osteoarthritis of left knee Procedures PA OFFICE/OUTPATIENT [facility] 60 MINUTES Pastora Alcantara DO 112 [facility] [address] [place] [address] Avi Maharaj MD [address] [place] [address] Referral ID Status Reason Start Date Expiration Date Visits Requested Visits Authorized [id number] Authorized Consult and Treat 05/05/2024 11/01/2024 1 1 [facility] for referral (narrative)No reason for referral information [facility] Work Phone: Reason for visit Narrative* Diagnostic Procedure Only (Routine) - Closed Specialty Diagnoses / Procedures Referred By Contac t Referred To Contact XR IMAGING Diagnoses Pain Procedures XR SHOULDER GENERAL 3V OR MORE AP/TRUE AP/OTHER RT X-RAY SHOULDER COMPLET MIN 2 VIEWS Randi Farrell, [address] [place] [address] [place] [address] Referral ID Status Reason Start Date Expiration Date V isits Requested Visits Authorized Closed Auto-Generate d Referral 04/17/2021 05/17/2022 1 1 [facility] for visit Narrative* Diagnostic Procedure Only (Routine) - Closed Specialty Diagnoses / Procedures Referred By Contac t Referred To Contact XR IMAGING Diagnoses Right elbow pain Procedures XR ELBOW SPECIAL VIEWS AP/LAT/OTHER RT X-RAY ELBOW MINIMUM 3 VIEWS Randi Farrell, [address] [place] [address] [place] [address] Referral ID Status Reason Start Date Expiration Date V isits Requested Visits Authorized Closed Auto-Generate d Referral 04/19/2021 05/19/2022 1 1 [facility] for visit Narrative* Rehabilitation - Outpatient (Routine) - Authorized Specialty Diagnoses / Procedures Referred By Contac t Referred To Contact Physical Therapy Diagnoses Pain in left knee Procedures PA PHYSICAL THERAPY EVALUATION LOW COMPLEX 20 MINS PA OFFICE/OUTPATIENT NEW [facility]DM 60 MINUTES Josseline Abad MD [address] [facility] [place] [address] Phone: tel: fax: [facility] [address] [facility] [address] [place] [address] Phone: tel: fax: Referral ID Status Reason Start Date Expiration Date V isits Requested Visits Authorized [id number] Authorized 08/24/2024 02/20/2025 30 30 [facility] HealthcareReason for [facility] Narrative* Rehabilitation - Outpatient (Routine) - Authorized Specialty Diagnoses / Procedures Referred By Contac t Referred To Contact Physical Therapy Diagnoses Pain in left knee Procedures PA PHYSICAL THERAPY EVALUATION LOW COMPLEX 20 MINS PA OFFICE/OUTPATIENT NEW HIGH MDM 60 MINUTES Josseline Abad MD [address] [facility] [place] [address] Phone: tel: fax: Gricelda Hammond PT Referral ID Status Reason Start Date Expiration Date Visits Requested Visits Authorized [id number] Authorized Consult and Treat 08/24/2024 08/18/2025 30 30 [facility] HealthcareReason for visit Narrative* Rehabilitation - Outpatient (Routine) - Authorized Specialty Diagnoses / Procedures Referred By Contac t Referred To Contact Physical Therapy Diagnoses Contusion of right shoulder, subsequent encounter Procedures PA PHYSICAL THERAPY EVALUATION LOW COMPLEX 20 MINS PA OFFICE/OUTPATIENT NEW HIGH MDM 60 MINUTES Robert Giron MD [address] [facility], [place] [address] Phone: tel: fax: [facility] [address] [address] Phone: tel: fax: Referral ID Status Reason Start Date Expiration Date V isits Requested Visits Authorized [id number] Authorized 12/29/2024 06/27/2025 30 30 [facility] HealthcareReason for [facility] Narrative* Rehabilitation - Outpatient (Routine) - Authorized Specialty Diagnoses / Procedures Referred By Contac t Referred To Contact Physical Therapy Diagnoses Contusion of right shoulder, subsequent encounter Procedures PA PHYSICAL THERAPY EVALUATION LOW COMPLEX 20 MINS PA OFFICE/OUTPATIENT NEW HIGH MDM 60 MINUTES Robert Giron MD [address] [facility], [place] [address] Phone: tel: fax: [facility] [address] [place] [address] Phone: tel: fax: Referral ID Status Reason Start Date Expiration Date V isits Requested Visits Authorized [id number] Authorized 12/29/2024 08/18/2025 30 30 [facility] HealthcareReason for [facility] Narrative* Rehabilitation - Outpatient (Routine) - Authorized Specialty Diagnoses / Procedures Referred By Jamal t Referred To Contact Physical Therapy Diagnoses Mild ankle sprain, right, initial encounter Procedures PA OFFICE/OUTPATIENT NEW HIGH MDM 60 MINUTES Martin Arango, DPM [address] [address] Phone: tel: fax: Gricelda Hammond PT Referral ID Status Reason Start Date Expiration Date Visits Requested Visits Authorized [id number] Authorized Specialty Services Required 02/11/2025 08/03/2025 24 24 [facility] HealthcareReason for [facility] Narrative* Rehabilitation - Outpatient (Routine) - Authorized Specialty Diagnoses / Procedures Referred By Jamal lee Referred To Contact Physical Therapy Diagnoses Mild ankle sprain, right, initial encounter Procedures PA OFFICE/OUTPATIENT NEW HIGH MDM 60 MINUTES Martin Arango DPM [address] [address] Phone: tel: fax: Gricelda Hammond PT Referral ID Status Reason Start Date Expiration Date Visits Requested Visits Authorized [id number] Authorized Specialty Services Required 02/11/2025 08/18/2025 24 24 [facility] Healthcare Summary Purpose Family History No Family History [...] 2:50pm r06.02 g47.36 j43.9 i51.89 November 13, 025 1:24pm Chief Complaint Admit Date f17.210 April 13, 2025 12 :46pm Chief Complaint Admit Date f17.210 April 13, 2025 12 :46pm H mo f/u COPD April 26, 2025 3:03pm Reason for Visit Admit Date COPD (chronic obstructive pulmonary dise ase) April 26, 2025 3:03pm Diastolic dysfunction April 26 3:03pm Nicotine dependence in remission 2024 3:03pm Pulmonary hypertension April 26 3:03pm Reason for Referral Specialty Diagnoses / Procedures Referred By Jamal lee Referred To Contact Diagnoses Intractable chronic migraine without aura and without status migrainosus ([facility]) Carlos Sanchez MD [address] [facility] [address], [place] [address] Referral ID Status Reason Start Date Expiration Date V isits Requested Visits Authorized [id number] Pending Review 04/27/2024 10/24/2024 1 1 Specialty Diagnoses / Procedures Referred By Jamal lee Referred To Contact Physical Therapy Diagnoses Arthritis of left knee Procedures PA OFFICE/OUTPATIENT NEW HIGH MDM 60 MINUTES Cj Zepeda, [employer] [address] [facility] [address] [place] [address] Galo Coronado, PT 112 [facility] [address] [place] [address] Referral ID Status Reason Start Date Expiration Date Visits Requested Visits Authorized [id number] Pending Review Specialty Services Required 04/08/2024 10/05/2024 1 1 Additional Source Comments INFORMATION SOURCE (unrecogn ized section and content) DATE CREATED AUTHOR 10/09/2021 [facility] DATE CREATED AUTHOR AUTHOR'S ORGANIZ ATION 02/22/2022 [facility] DATE CREATED AUTHOR AUTHOR'S ORGANIZ ATION 01/28/2023 [facility] DATE CREATED AUTHOR AUTHOR'S ORGANIZ ATION 06/26/2023 [facility] DATE CREATED AUTHOR AUTHOR'S ORGANIZ ATION 12/16/2024 [facility] DATE CREATED AUTHOR AUTHOR'S ORGANIZ ATION 12/17/2024 [facility] DATE CREATED AUTHOR AUTHOR'S ORGANIZ ATION 02/06/2025 [facility] DATE CREATED AUTHOR AUTHOR'S ORGANIZ ATION 02/27/2025 [facility] DATE CREATED AUTHOR AUTHOR'S ORGANIZ ATION 03/14/2025 [facility] DATE CREATED AUTHOR AUTHOR'S ORGANIZ ATION 03/26/2025 [facility] DATE CREATED AUTHOR AUTHOR'S ORGANIZ ATION 04/15/2025 [facility] DATE CREATED AUTHOR AUTHOR'S ORGANIZ ATION 04/24/2025 [facility] DATE CREATED AUTHOR AUTHOR'S ORGANIZ ATION 05/03/2025 [facility] Care Team (unrecognized sect ion and content) Team Status: Active Member Role Status Dates Robert Giron DO Primary Care Provider Active Team Status: Inactive Member Role Status Dates Robert Giron DO Primary Care Provider Active Valarie Conley APRN [facility]- Attending Provider Active Order Detailer Relationship Specialty Start Date End Date Robert Giron MD [address] [place] [address] PCP - General Family Medicine 12/6/23 Team Status: Inactive Member Role Status Dates Robert Giron DO Primary Care Provider Active Start: March 31, 2024 End: March 31, 2024 Valarie Conley APRN [facility] Attending Provider Active Start: March 31, 2024 End: March 31, 2024 Order Detailer Relationship Specialty Start Date End Date Robert Giron MD [address] [place] [address] PCP - General Family Medicine 07/24/23 Order Detailer Relationship Specialty Start Date End Date Robert Giron MD [address] [place] [address] PCP - General Family Medicine 07/24/23 Order Detailer Relationship Specialty Start Date End Date Robert Giron MD [address] [place] [address] PCP - General Family Medicine 07/24/23 Order Detailer Relationship Specialty Start Date End Date Robert Giron MD [address] [place] [address] PCP - General Family Medicine 07/24/23 Order Detailer Relationship Specialty Start Date End Date Robert Giron MD [address] [place] [address] PCP - General Family Medicine 07/24/23 Order Detailer Relationship Specialty Start Date End Date Robert Giron MD [address] [place] [address] PCP - General Family Medicine 07/24/23 Order Detailer Relationship Specialty Start Date End Date Robert Giron MD [address] [place] [address] PCP - General Family Medicine 07/24/23 Order Detailer Relationship Specialty Start Date End Date Robert Giron MD [address] [place] [address] PCP - General Family Medicine 07/24/23 Order Detailer Relationship Specialty Start Date End Date Robert Giron MD [address] [place] [address] PCP - General Family Medicine 07/24/23 Order Detailer Relationship Specialty Start Date End Date Robert Giron MD [address] [place] [address] PCP - General Family Medicine 07/24/23 Order Detailer Relationship Specialty Start Date End Date Robert Giron MD [address] [place] [address] PCP - General Family Medicine 07/24/23 Order Detailer Relationship Specialty Start Date End Date Robert Giron MD [address] [place] [address] PCP - General Family Medicine 07/24/23 Order Detailer Relationship Specialty Start Date End Date Robert Giron MD [address] [place] [address] PCP - General Family Medicine 07/24/23 Order Detailer Relationship Specialty Start Date End Date Robert Giron MD [address] [place] [address] PCP - General Family Medicine 07/24/23 Order Detailer Relationship Specialty Start Date End Date Robert Giron MD [address] [place] [address] PCP - General Family Medicine 07/24/23 Order Detailer Relationship Specialty Start Date End Date Robert Giron MD [address] [place] [address] PCP - General Family Medicine 07/24/23 Order Detailer Relationship Specialty Start Date End Date Robert Giron MD [address] [place] [address] PCP - General Family Medicine 07/24/23 Order Detailer Relationship Specialty Start Date End Date Robert Giron MD [address] [place] [address] PCP - General Family Medicine 07/24/23 Order Detailer Relationship Specialty Start Date End Date Robert Giron MD [address] [place] [address] PCP - General Family Medicine 07/24/23 Order Detailer Relationship Specialty Start Date End Date Robert Giron MD [address] [place] [address] PCP - General Family Medicine 07/24/23 Order Detailer Relationship Specialty Start Date End Date Robert Giron MD [address] [place] [address] PCP - General Family Medicine 07/24/23 Order Detailer Relationship Specialty Start Date End Date Robert Giron MD [address] [place] [address] PCP - General Family Medicine 07/24/23 Order Detailer Relationship Specialty Start Date End Date Robert Giron DO [address] [place] [address] PCP - General Family Medicine 05/10/22 Order Detailer Relationship Specialty Start Date End Date Robert Giron MD [address] [place] [address] PCP - General Family Medicine 07/24/23 Order Detailer Relationship Specialty Start Date End Date Robert Giron MD [address] [place] [address] PCP - General Family Medicine 07/24/23 Order Detailer Relationship Specialty Start Date End Date Robert Giron MD [address] [place] [address] PCP - General Family Medicine 07/24/23 Order Detailer Relationship Specialty Start Date End Date Robert Giron MD [address] [place] [address] PCP - General Family Medicine 07/24/23 Order Detailer Relationship Specialty Start Date End Date Robert Giron MD [address] [place] [address] PCP - General Family Medicine 07/24/23 Order Detailer Relationship Specialty Start Date End Date Robert Giron MD [address] [place] [address] PCP - General Family Medicine 07/24/23 Order Detailer Relationship Specialty Start Date End Date Robert Giron MD [address] [place] [address] PCP - General Family Medicine 07/24/23 Order Detailer Relationship Specialty Start Date End Date Robert Giron DO [address] [place] [address] PCP - General Family Medicine 05/10/22 Order Detailer Relationship Specialty Start Date End Date Robert Giron DO [address] [place] [address] PCP - General Family Medicine 05/10/22 Order Detailer Relationship Specialty Start Date End Date Robert Giron DO [address] [place] [address] PCP - General Family Medicine 05/10/22 Order Detailer Relationship Specialty Start Date End Date Robert Giron DO [address] [place] [address] PCP - General Family Medicine 05/10/22 Order Detailer Relationship Specialty Start Date End Date Robert Giron DO [address], [place] [address] PCP - General Family Medicine 05/10/22 Order Detailer Relationship Specialty Start Date End Date Robert Giron MD [address], [place] [address] PCP - General Family Medicine 07/24/23 Order Detailer Relationship Specialty Start Date End Date Robert Giron DO [address], [place] [address] PCP - General Family Medicine 05/10/22 Team Status: Inactive Member Role Status Dates Robert Giron DO Primary Care Provider Active Start: October 12, 2024 End: October 12, 2024 Valarie Conley APRN [facility]- Attending Provider Active Start: October 12, 2024 End: October 12, 2024 Order Detailer Relationship Specialty Start Date End Date Bree Robert G, [address] [place] [address] PCP - General Family Medicine 05/10/22 Order Detailer Relationship Specialty Start Date End Date Robert Giron DO [address], [place] [address] PCP - General Family Medicine 05/10/22 Order Detailer Relationship Specialty Start Date End Date Robert Giron DO [address], [place] [address] PCP - General Family Medicine 05/10/22 Order Detailer Relationship Specialty Start Date End Date Robert Giron DO [address], [place] [address] PCP - General Family Medicine 05/10/22 Order Detailer Relationship Specialty Start Date End Date Robert Giron DO [address], [place] [address] PCP - General Family Medicine 05/10/22 Order Detailer Relationship Specialty Start Date End Date Robert Giron MD PCP - General Family Medicine 07/24/23 Order Detailer Relationship Specialty Start Date End Date Robert Giron MD PCP - General Family Medicine 07/24/23 Team Status: Inactive Member Role Status Dates Robert Giron DO Primary Care Provider Active Start: November 13, 2024 End: November 13, 2024 Valarie Conley APRN [facility] Attending Provider Active Start: November 13, 2024 End: November 13, 2024 Order Detailer Relationship Specialty Start Date End Date Robert Giron MD PCP - General Family Medicine 07/24/23 Order Detailer Relationship Specialty Start Date End Date Robert Giron MD [address], [place] [address] PCP - General Family Medicine 11/19/24 Order Detailer Relationship Specialty Start Date End Date Robert Giron MD [address], [place] [address] PCP - General Family Medicine 11/19/24 Order Detailer Relationship Specialty Start Date End Date Robert Giron MD [address] [place] [address] PCP - General Family Medicine 11/19/24 Order Detailer Relationship Specialty Start Date End Date Robert Giron MD [address] [place] [address] PCP - General Family Medicine 11/19/24 Order Detailer Relationship Specialty Start Date End Date Robert Giron DO [address] [place] [address] PCP - General Family Medicine 05/10/22 Order Detailer Relationship Specialty Start Date End Date Robert Giron DO [address] [place] [address] PCP - General Family Medicine 05/10/22 Order Detailer Relationship Specialty Start Date End Date Robert Giron MD [address] [place] [address] PCP - General Family Medicine 11/19/24 Order Detailer Relationship Specialty Start Date End Date Robert Giron MD [address] [place] [address] PCP - General Family Medicine 11/19/24 Order Detailer Relationship Specialty Start Date End Date Robert Giron DO [address] [place] [address] PCP - General Family Medicine 05/10/22 Order Detailer Relationship Specialty Start Date End Date Robert Giron MD [address] [place] [address] PCP - General Family Medicine 11/19/24 Order Detailer Relationship Specialty Start Date End Date Robert Giron MD [address] [place] [address] PCP - General Family Medicine 11/19/24 Order Detailer Relationship Specialty Start Date End Date Robert Giron MD [address] [place] [address] PCP - General Family Medicine 11/19/24 Order Detailer Relationship Specialty Start Date End Date Robert Giron MD [address] [place] [address] PCP - General Family Medicine 11/19/24 Order Detailer Relationship Specialty Start Date End Date Robert Giron MD [address] [place] [address] PCP - General Family Medicine 11/19/24 Order Detailer Relationship Specialty Start Date End Date Robert Giron MD [address] [place] [address] PCP - General Family Medicine 11/19/24 Order Detailer Relationship Specialty Start Date End Date Robert Giron DO [address], [place] [address] PCP - General Family Medicine 05/10/22 Order Detailer Relationship Specialty Start Date End Date Robert Giron MD [address], [place] [address] PCP - General Family Medicine 11/19/24 Order Detailer Relationship Specialty Start Date End Date Robert Giron MD [address], [place] [address] PCP - General Family Medicine 11/19/24 Order Detailer Relationship Specialty Start Date End Date Robert Giron MD [address], [place] [address] PCP - General Family Medicine 11/19/24 Order Detailer Relationship Specialty Start Date End Date Robert Giron MD [address], [place] [address] PCP - General Family Medicine 11/19/24 Order Detailer Relationship Specialty Start Date End Date Robert Giron DO [address], [place] [address] PCP - General Family Medicine 05/10/22 Order Detailer Relationship Specialty Start Date End Date Robert Giron DO [address], [place] [address] PCP - General Family Medicine 05/10/22 Order Detailer Relationship Specialty Start Date End Date Robert Giron MD [address], [place] [address] PCP - General Family Medicine 11/19/24 Order Detailer Relationship Specialty Start Date End Date Robert Giron DO [address], [place] [address] PCP - General Family Medicine 05/10/22 Order Detailer Relationship Specialty Start Date End Date Robert Giron DO [address], [place] [address] PCP - General Family Medicine 05/10/22 Order Detailer Relationship Specialty Start Date End Date Robert Giron DO [address], [place] [address] PCP - General Family Medicine 05/10/22 Order Detailer Relationship Specialty Start Date End Date Robert Giron DO [address], [place] [address] PCP - General Family Medicine 05/10/22 Order Detailer Relationship Specialty Start Date End Date Robert Giron DO [address], [place] [address] PCP - General Family Medicine 05/10/22 Team Status: Inactive Member Role Status Dates Robert Giron DO Primary Care Provider Active Start: April 13, 2025 End: April 13, 2025 Valarie Conley APRN [facility]- Attending Provider Active Start: April 13, 2025 End: April 13, 2025 Team Status: Inactive Member Role Status Dates Robert Giron DO Primary Care Provider Active Start: April 26, 2025 End: April 26, 2025 Valarie Conley APRN ACNP-BC Attending Provider Active Start: April 26, 2025 End: April 26, 2025 Goals (unrecognized section and content) Goals may be documented in a n alternate section REASON FOR VISIT (unrecogniz ed section and content) Reason Comments Pain Specialty Diagnoses / Procedures Referred By [facility] Referred To Contact Orthopaedic Surgery Diagnoses Primary osteoarthritis of left knee Procedures 165 ([email or web address]) - Ambulatory referral to Orthopedic Surgery ([facility]) Robert Giron MD [address] [place] [address] Phone: tel: fax: Jr. Jim Lerma, DO [address] [place] [address] Phone: tel: fax: Referral ID Status Reason Start Date Expiration Date Visits Re quested Visits Authorized [id number] Closed 12/25/2024 12/25/2025 1 1 Reason Onset Date Comments Med Refill 09/20/2023 Reason Comments Consult Surgery consult Reason Onset Date Comments pain 06/09/2024 Reason Onset Date Comments L knee pain 06/15/2024 Reason Comments Toenail Problem Rt 2nd toe nail issu e Reason Comments Gynecologic Exam Reason Comments Ingrown Toenail B/L ingrown nails Specialty Diagnoses / Procedures Referred By [facility] Referred To Contact Physical Therapy Diagnoses Arthritis of left knee Procedures PA OFFICE/OUTPATIENT NEW HIGH MDM 60 MINUTES Cj Zepeda, [employer] [address] [place] [address] Galo Coronado, PT [address] [place] [address] Referral ID Status Reason Start Date Expiration Date Visits Requested Visits Authorized [id number] Authorized Specialty Services Required 04/15/2024 05/16/2024 12 [...] Referred By Jamal t Referred To Contact General Surgery Diagnoses Polyp of colon, unspecified part of colon, unspecified type Robert Giron, DO [address] [facility] [place] [address] Phone: tel: fax: Karlos Quinones, DO [address] [place] [address] Phone: tel: fax: Referral ID Status Reason Start Date Expiration Date V isits Requested Visits Authorized [id number] Closed Specialty Services Required 02/24/2025 02/24/2026 1 1 Reason Onset Date Comments Med Refill 03/12/2025 Reason Onset Date Comments Med Refill 03/15/2025 Reason Comments controlled medications Reason Onset Date Comments Med Refill 03/21/2025 Reason Onset Date Comments surgery clearance 03/23/2025 Reason Onset Date Comments Med Refill 03/28/2025 Reason Onset Date Comments Med Refill 04/04/2025 Reason Onset Date Comments Med Refill 04/08/2025 Reason Onset Date Comments Med Refill 04/18/2025 Reason Onset Date Comments Med Refill 04/21/2025 Reason Onset Date Comments Med Refill 04/25/2025 Source Comments (unrecognize d section and content) In the event this informatio n is protected by the Federal Confidentiality of Alcohol and Drug Abuse Patient Records regulations: The Federal rules restrict any use of the information to criminally investigate or prosecute any alcohol or drug abuse patient.[facility] FOR RECORDS PERTAINING TO PATIENTS WHO [...] BE BASED ON THE PRIMARY CLINICAL RECORDS. [employer] provides no warranty or guarantee of the accuracy or completeness of information in this document.
== END 2025-05-03 15:20 | disposition home or self-care (01) ==
PROVIDERS: Emergency Provider Emergency Medicine; PCP Family Medicine
DX: M25.511 Pain in right shoulder (principal); G89.29 Other chronic pain
CPT/HCPCS: 99283

== ENCOUNTER 2025-06-15 19:14 | Emergency (ER) | payer OTHER, SELFPAY ==
--- OUTSIDE RECORDS SUMMARY | 2021-09-08 12:03 | XMS_ITS | Continuity of Care Document ---
Author Organization [facility] Address [address] [place] [address] Phone Care Team Providers Care Roof Slater Name Role Phone Allen Cruz Unavailable Unavailable [...] 1 hour before meals and at bedtime 1 G - Active EcoTimberTouch Ultra Blue Test Strip insert 1 unit [...] Diagnoses Date Provider Providers Copied on Encounter [facility], [address] [place] [address], [id number] , tel:[phone] [facility] Colon cancer screening 2 Visci DO Allen. [address] [place] [address], [id number], [place]. tel:[phone] OFFICE/OUTPA TIENT VISIT, [facility], [address] [place] [address], [id number] , tel:[phone] [facility] Surgical Clearance (chief complaint) Type 2 diabetes mellitus with unspecified complicationsBod y mass index [BMI] 29.0-29.9, adultPreoperativ e clearanceBipolar 1 disorder 1 Pavlock DO Max. [address] [place] [address], [id number], [place]. tel:[phone] OFFICE/OUTPA TIENT VISIT, EST [facility], [address] [place] [address], [id number] , [place] tel:[phone] [facility] Elevated blood sugar (chief complaint) Body mass index [BMI] 29.0-29.9, adultType 2 diabetes mellitus with unspecified complicationsBip olar 1 disorder 1 Pavlock DO Max. [address] [place] [address], [id number], [place]. [phone] OFFICE/OUTPA TIENT VISIT, [facility], [address], [place], [id number] , [place] tel: [phone] [facility] GERD (chief complaint) Abdominal mass, unspecified abdominal location 1 [facility] DO Max. [address], [place], [id number], [place]. tel:[phone] OFFICE/OUTPA TIENT VISIT, [facility], [address], [place], [id number] , [place] tel: [phone] [facility] f/u meds (chief complaint)Ab dominal pain (chief complaint) Body mass index [BMI] 29.0-29.9, adultAbdominal mass, unspecified abdominal locationType 2 diabetes mellitus with unspecified complications 1 [facility] DO Max. [address] [place] [address], [id number], [place]. tel:[phone] OFFICE/OUTPA TIENT VISIT, [facility], [address], [place], [id number] , [place] tel: [phone] [facility] f/u medications (chief complaint) Body mass index [BMI] 29.0-29.9, adultBipolar 1 disorderClosed fracture of right shoulder with routine healing, subsequent encounterType 2 diabetes mellitus with unspecified complications 1 Pavlock DO Max. [address], [place], [id number], [place]. tel:[phone] OFFICE/OUTPA TIENT VISIT, [facility], [address], [place], [id number] , [place] tel: [phone] [facility] check up (chief complaint) Irritable bowel syndrome with both constipation and diarrheaSwelling of left side of faceBipolar 1 disorder Apr- 1 Pavlock DO Max. [address], [place], [id number], [place]. tel:[phone] OFFICE/OUTPA TIENT VISIT, [facility], [address], [place], [id number] , [place] tel:[phone] [facility] Sleep Issues (chief complaint)In somnia (chief complaint) Body mass index [BMI] 29.0-29.9, adultBipolar 1 disorderClosed fracture of right shoulder with routine healing, subsequent encounterFibromy algiaIrritable bowel syndrome with both constipation and diarrheaLow back pain with radiationSwellin g of left side of face 1 Pavlock DO Max. [address], [place], [id number], [place]. tel:[phone] [facility], [address] [place] [address], [id number] , [place] tel:[phone] Dental Clinic consult (chief complaint) Encounter for screening for dental disorders 1 Venkat Dsouza. [address] [place] [address], [id number], [place]. tel:[phone] OFFICE/OUTPA TIENT VISIT, [facility], [address], [place], [id number] , [place] tel:[phone] [facility] A1C (chief complaint)di abetes (chief complaint) Type 2 diabetes mellitus with unspecified complicationsBod y mass index [BMI]30.0-30.9, adultClosed fracture of right shoulder with routine healing, subsequent encounter 1 Pavlock DO Max. [address], [place], [id number], [place]. tel:[phone] OFFICE/OUTPA TIENT VISIT, [facility], [address], [place], [id number] , [place] [phone] [facility] Right shoulder pain, neck pain (chief complaint)UD S (chief complaint) Closed fracture of right scapula, unspecified part of scapula, initial encounterComplia nce with medication regimenBody mass index [BMI]30.0-30.9, adult Feb- 1 Pavlock DO Max. [address], [place], [id number], [place]. tel:[phone] [facility], [address], [place], [id number] , [place] tel: [phone] [facility] COPD mixed type 1 [facility] Max. [address], [place], [id number], [place]. tel:[phone] OFFICE/OUTPA TIENT VISIT, [facility], [address], [place], [id number] , [place] tel: [phone] [facility] f/u us (chief complaint)Sh ortness of breath (chief complaint) COPD mixed typeSwelling of left side of faceNeuropathyIn somnia, unspecified typeRenal calculiBody mass index [BMI] 29.0-29.9, adult 1 [facility] Max. [address] [place] [address], [id number], [place]. tel:[phone] OFFICE/OUTPA TIENT VISIT, [facility], [address], [place], [id number] , [place] tel: [phone] [facility] hospital f/u (chief complaint)Sh ortness of breath (chief complaint) Body mass index [BMI] 29.0-29.9, adultSwelling of left side of faceCOPD mixed typeRib painType 2 diabetes mellitus with unspecified complicationsEss ential hypertension 1 [facility] Max. [address] [place] [address], [id number], [place]. tel:[phone] OFFICE/OUTPA TIENT VISIT, [facility], [address], [place], [id number] , [place] tel: [phone] [facility] Hospital F/U (chief complaint) Body mass index [BMI] 28.0-28.9, adultCOPD mixed typeSwelling of left side of face 1 [facility] [address] [place] [address], [id number], [place]. tel:[phone] OFFICE/OUTPA TIENT VISIT, [facility], [address], [place], [id number] , [place] tel: [phone] [facility] f/u er visit (chief complaint)Sh ortness of breath (chief complaint) Pneumonia due to infectious organism, unspecified laterality, unspecified part of lungRib painBody mass index [BMI] 28.0-28.9, adult 1 [facility] DO Max. [address] [place] [address], [id number], [place]. tel:[phone] OFFICE/OUTPA TIENT VISIT, [facility], [address] [place] [address], [id number] , [place] tel: [phone] [facility] Cough (chief complaint) COPD mixed type 1 [facility] DO Max. [address] [place] [address], [id number], [place]. tel:[phone] OFFICE/OUTPA TIENT VISIT, [facility], [address] [place] [address], [id number] , [place] tel: [phone] [facility] f/u a1c (chief complaint)de pression (chief complaint) Type 2 diabetes mellitus with unspecified complicationsBip olar 1 disorderNeuropat hySwelling of left side of face 1 [facility] DO Max. [address] [place] [address], [id number], [place]. tel:[phone] OFFICE/OUTPA TIENT VISIT, [facility], [address] [place] [address], [id number] , [place] tel: [phone] [facility] discuss ENT (chief complaint)Di arrhea (chief complaint)di abetes (chief complaint) Body mass index [BMI] 29.0-29.9, adultIrritable bowel syndrome with both constipation and diarrheaType 2 diabetes mellitus with complication, without long-term current use of insulinSwelling of left side of faceBipolar 1 disorder 1 Pavlock DO Max. [address] [place] [address], [id number], [place]. tel:[phone] OFFICE/OUTPA TIENT VISIT, [facility], [address] [place] [address], [id number] , [place] tel:[phone] [facility] f/u CT (chief complaint) Body mass index [BMI] 28.0-28.9, adultSwelling of left side of face 1 [facility] Max. [address] [place] [address], [id number], [place]. tel:[phone] OFFICE/OUTPA TIENT VISIT, [facility], [address] [place] [address], [id number] , [place] tel:[phone] [facility] sick visit (chief complaint) Swelling of left side of faceBody mass index [BMI] 28.0-28.9, adult 1 [facility]. [address] [place] [address], [id number], [place]. tel:[phone] OFFICE/OUTPA TIENT VISIT, [facility], [address] [place] [address], [id number] , [place] tel:[phone] [facility] A1C (chief complaint)di abetes (chief complaint) Body mass index [BMI] 28.0-28.9, adultType 2 diabetes mellitus with complication, without long-term current use of insulinAbdominal mass, unspecified abdominal locationFibromya lgiaLow back pain with radiationCervica l radiculopathy at C7 1 [facility]. [address] [place] [address], [id number], [place]. tel:[phone] OFFICE/OUTPA TIENT VISIT, [facility], [address] [place] [address], [id number] , [place] tel:[phone] [facility] Leg Issues (chief complaint)ba ck pain (chief complaint) Body mass index [BMI] 28.0-28.9, adultFolliculiti sFibromyalgiaNeu ropathy 1 Pavlock DO Max. [address], [place], [id number], [place]. tel:[phone] OFFICE/OUTPA TIENT VISIT, [facility], [address], [place], [id number] , [place] tel:[phone] [facility] A1C (chief complaint)Ki dney stones (chief complaint) Type 2 diabetes mellitus with complication, without long-term current use of insulinBody mass index [BMI] 28.0-28.9, adultBurning with urinationRenal calculi 0 Pavlock DO Max. [address], [place], [id number], [place]. tel:[phone] OFFICE/OUTPA TIENT VISIT, [facility], [address] [place] [address], [id number] , [place] tel:[phone] [facility] back pain (chief complaint) Low back pain with radiation 0 Pavlock DO Max. [address] [place] [address], [id number], [place]. tel:[phone] [facility], [address] [place] [address], [id number] , [place] tel:[phone] [facility] No Information 0 Pavlock DO Max. [address] [place] [address], [id number], [place]. tel:[phone] OFFICE/OUTPA TIENT VISIT, [facility], [address] [place] [address], [id number] , [place] tel:[phone] [facility] F/U GI & HEART (chief complaint)ba ck pain (chief complaint)di abetes (chief complaint) Body mass index (BMI) 26.0-26.9, adultType 2 diabetes mellitus with complication, without long-term current use of insulinFibromyal farzana 0 Pavlock DO Max. [address] [place] [address], [id number], [place]. tel:[phone] OFFICE/OUTPA TIENT VISIT, [facility], [address], [place], [id number] , [place] tel: [phone] [facility] Follow Up (chief complaint)Mu sculoskeleta l pain (chief complaint) Body mass index (BMI) 25.0-25.9, adultNeuropathyC OPD mixed typeEssential hypertension Feb- 0 Pavlock DO Max. [address], [place], [id number], [place]. tel:[phone] OFFICE/OUTPA TIENT VISIT, [facility], [address], [place], [id number] , [place] tel: [phone] [facility] L leg pain & ER follow up (chief complaint)ba ck pain (chief complaint) Body mass index (BMI) 24.0-24.9, adultLow back pain with radiationEssenti al hypertensionTach ycardia 0 Pavlock DO Max. [address], [place], [id number], [place]. tel:[phone] OFFICE/OUTPA TIENT VISIT, [facility], [address], [place], [id number] , [place] tel: [phone] [facility] Abdominal pain (chief complaint) Abdominal mass, unspecified abdominal location 0 Pavlock DO Max. [address], [place], [id number], [place]. tel:[phone] OFFICE/OUTPA TIENT VISIT, [facility], [address], [place], [id number] , [place] tel:[phone] [facility] F/U ER (chief complaint)Ab dominal pain (chief complaint) Body mass index (BMI) 23.0-23.9, adultAbdominal pain in female Oct- 0 Pavlock DO Max. [address] [place] [address], [id number], [place]. tel:[phone] OFFICE/OUTPA TIENT VISIT, [facility], [address], [place], [id number] , [place] tel:[phone] [facility] TENS UNIT (chief complaint)ba ck pain (chief complaint) Body mass index (BMI) 23.0-23.9, adultLow back pain with radiation 0 Pavlock DO Max. [address] [place] [address], [id number], [place]. tel:[phone] OFFICE/OUTPA TIENT VISIT, [facility], [address] [place] [address], [id number] , [place] tel: [phone] [facility] A1C (chief complaint)Di arrhea (chief complaint) Type 2 diabetes mellitus with complication, without long-term current use of insulinBody mass index (BMI) 22.0-22.9, adultChronic diarrheaIrritabl e bowel syndrome with both constipation and diarrheaNeuropat hy 0 Pavlock DO Max. [address] [place] [address], [id number], [place]. tel:[phone] OFFICE/OUTPA TIENT VISIT, [facility], [address] [place] [address], [id number] , [place] tel:[phone] [facility] F/U WEIGHT LOSS (chief complaint)Mu sculoskeleta l pain (chief complaint) Body mass index (BMI) 23.0-23.9, adultChronic diarrheaNeuropat hy 0 Pavlock DO Max. [address] [place] [address], [id number], [place]. tel:[phone] OFFICE/OUTPA TIENT VISIT, [facility], [address] [place] [address], [id number] , [place] tel:[phone] [facility] Med f/u (chief complaint)Di arrhea (chief complaint) Body mass index (BMI) 23.0-23.9, adultIrritable bowel syndrome with both constipation and diarrheaType 2 diabetes mellitus with complication, without long-term current use of insulinNeuropath yEssential hypertension 9 [facility]. [address], [place], [id number], [place]. tel:[phone] OFFICE/OUTPA TIENT VISIT, [facility], [address], [place], [id number] , [place] tel:[phone] [facility] med refill &A1C (chief complaint)ba ck pain (chief complaint) Body mass index (BMI) 24.0-24.9, adultType 2 diabetes mellitus with complication, without long-term current use of insulinChronic pain syndromeNeuropat hy 9 [facility]. [address], [place], [id number], [place]. tel:[phone] OFFICE/OUTPA TIENT VISIT, [facility], [address] [place] [address], [id number] , [place] tel:[phone] [facility] med issues (chief complaint) Body mass index (BMI) 24.0-24.9, adultNeuropathyI rritable bowel syndrome with both constipation and diarrhea 9 [facility]. [address] [place] [address], [id number], [place]. tel:[phone] OFFICE/OUTPA TIENT VISIT, [facility], [address], [place], [id number] , [place] tel:[phone] [facility] f/u (chief complaint)Di arrhea (chief complaint) Abdominal pain in femaleRight otitis media, unspecified otitis media typeOpiate withdrawalNeurop athy 9 [facility]. [address], [place], [id number], [place]. tel:[phone] OFFICE/OUTPA TIENT VISIT, [facility], [address], [place], [id number] , [place] tel:[phone] [facility] belly button drainage (chief complaint) Body mass index (BMI) 26.0-26.9, adultCellulitis and abscess of trunkCutaneous abscess of trunk, unspecifiedInsom elvira, unspecified typeIrritable bowel syndrome with both constipation and diarrhea 9 [facility]. [address], [place], [id number], [place]. tel:[phone] OFFICE/OUTPA TIENT VISIT, EST [facility], [address], [place], [id number] , [place] tel: [phone] [facility] 3 MONTH F/U (chief complaint) Body mass index (BMI) 26.0-26.9, adultTongue thrustMixed hyperlipidemiaTy pe 2 diabetes mellitus with complication, without long-term current use of insulin [address], [id number], [place]. tel:[phone] [facility], [address] [place] [address], [id number] , [place] tel: [phone] [facility] No Information 9 [facility]. [address] [place] [address], [id number], [place]. tel:[phone] [facility], [address] [place] [address], [id number] , [place] tel:[phone] [facility] Type 2 diabetes mellitus with complication, without long-term current use of insulin 9 [facility]. [address] [place] [address], [id number], [place]. tel:[phone] [facility], [address] [place] [address], [id number] , [place] tel: [phone] [facility] f/u insomnia (chief complaint) Body mass index (BMI) 27.0-27.9, adultType 2 diabetes mellitus with complication, without long-term current use of insulinInsomnia, unspecified typeCOPD mixed type Nov-[address], [id number], [place]. tel:[phone] [facility], [address] [place] [address], [id number] , [place] tel: [phone] [facility] Chronic eczema Oct-0 9 [facility]. [address] [place] [address], [id number], [place]. tel:[phone] [facility], [address] [place] [address], [id number] , [place] tel: [phone] [facility] diabetes (chief complaint) Type 2 diabetes mellitus with complication, without long-term current use of insulin Oct-0 9 [facility]. [address] [place] [address], [id number], [place]. tel:[phone] [facility], [address] [place] [address], [id number] , [place] tel: [phone] [facility] med refills (chief complaint) Body mass index (BMI) 27.0-27.9, adultType 2 diabetes mellitus with complication, without long-term current use of insulinInsomnia, unspecified typeEssential hypertension 9 [facility]. [address] [place] [address], [id number], [place]. tel:[phone] [facility], [address] [place] [address], [id number] , [place] tel: [phone] [facility] med refill (chief complaint) Type 2 diabetes mellitus with complication, without long-term current use of insulinEssential hypertensionMixe d hyperlipidemiaDe pression, unspecified depression typeChronic pain syndromeInsomnia , unspecified type 9 [facility]. [address] [place] [address], [id number], [place]. tel:[phone] Family History Family Member Type Diagnosis Age [...] Authoriza tion(s) Medicaid Wrap - [facility] [id number] [place] [facility] [id number] Medicaid W[place] - [facility] [id number] Social History Type Description Quantity Date Captured Comments Alcohol Use Details Unknown Caffeine Use Details Unknown Tobacco Use Status Smoking Status No Information Sex Female Sexual Orientation Straight or heterosexual Sep Gender Identity Female Chief Complaint And Reason For Visit No Information Reason For Referral Reason For Referral No Information Plan Of Treatment Date Type Action Status Goal Dental exam. Due on 022 due [...] completed Goal Dilated eye exam. Due on May [...] eye exam. Due on Apr due Goal Foot exam. Due on due [...] Due on due Goal Urinalysis due Goal Foot exam. Due on due Goal Dilated eye exam. Due on Mar due Goal Urine microalbumin. Due on A due Goal Dental exam. Due on due Goal Dental exam. [...] completed Goal Tobacco cessation counseling completed Goal Hemoglobin A1C. Due on due Goal Urine microalbumin. Due on due Goal Pneumococcal vaccine. Due on due Goal Dilated eye exam. Due on Feb due Goal Foot exam. Due on due Goal Dental exam. Due on due Goal ECG. Due on due Goal Urinalysis due Goal Dietary management education , guidance, and counseling completed Goal Tobacco cessation counseling completed Goal Hemoglobin A1C. Due on [...] Goal Pneumococcal vaccine. Due on due Goal Dietary management education , guidance, and counseling completed Goal Tobacco cessation counseling completed Goal Urinalysis due Goal ECG. [...] counseling completed Goal Urine microalbumin. Due on M due Goal Dilated eye exam. Due on Oct due Goal Foot exam. Due on due Goal Dental exam. Due on due Goal Hemoglobin A1C. Due on due Goal Pneumococcal vaccine. Due on due Goal ECG. Due on due Goal Urinalysis due Goal Dietary management education , guidance, and counseling completed Goal Tobacco cessation counseling completed Goal Urinalysis due Goal ECG. Due on due Goal Hemoglobin A1C. Due [...] due Goal ECG. Due on due Goal Urine microalbumin. Due on J due Goal Dilated eye exam. Due on Aug due Goal Tobacco cessation counseling completed Goal Dietary management education , guidance, and counseling completed Goal Dilated eye exam. Due on Jun due Goal Dental exam. Due on due Goal Pneumococcal vaccine. Due on due Goal Urine microalbumin. Due on N due Goal Hemoglobin A1C. Due on due [...] due Goal ECG. Due on due Goal ECG. Due on due Goal Dilated eye exam. Due on Mar due Goal Hemoglobin A1C. Due on due Goal Foot exam. Due on 0 due Goal Pneumococcal vaccine. Due on due Goal Dental exam. Due on due Goal Urine microalbumin. Due on due Goal Tobacco cessation counseling completed Goal Dietary management education , guidance, and counseling completed Goal Dental exam. Due on due Goal Foot exam. Due on 0 due Goal Pneumococcal vaccine. Due on due Goal Hemoglobin A1C. Due on due Goal ECG. Due on due Goal Urine microalbumin. Due on due Goal Dilated eye exam. Due on Feb due Goal Dietary management education , guidance, and counseling completed Goal Tobacco cessation counseling completed Goal Hemoglobin A1C. Due on due Goal Pneumococcal vaccine. Due on due Goal ECG. Due on due Goal Dilated eye exam. Due on Jan due Goal Urine microalbumin. Due on due Goal Dental exam. Due on due Goal Foot exam. Due on 0 due Goal Tobacco cessation counseling completed Goal Dietary management education , guidance, and counseling completed Goal Urine microalbumin. Due on due Goal ECG. Due on due Goal Dental exam. Due on due Goal Dilated eye exam. Due on December due Goal Foot exam. Due on 0 due Goal Hemoglobin A1C. Due on due Goal Pneumococcal vaccine. Due on due Goal Dietary management education [...] cessation counseling completed Referral Ordered: SCREENING COLONOSCOPY [id number] Ordered: Rheumatology (related to Fibromyalgia) [id number] Ordered: Referrals: Rheumatology [id number] Ordered: Referrals: Orthopedic Surgery [id number] Ordered: Complete PFT With Bronchodilator [id number] Ordered: Maxillofacial Surgery (related to Swelling of left side of face) [id number] Ordered: Referrals: Pulmonology [id number]-[id number] Ordered: Referrals: Urology [id number] Ordered: Referrals: Maxillofacial Surgery wyxsqdbWic-[id number] Ordered: US Exam Of Head & Neck Bilateral [id number] Ordered: CT Neck Spine W/O Dye lsyiyofIyc-[id number] Ordered: CT Thorax W/O & W/Dye [id number] Ordered: Surgery (related to Swelling of left side of face) [id number] Ordered: Referrals: Surgery [id number] Ordered: Otolaryngology (related to Swelling of left side of face) [id number] Ordered: Referrals: Otolaryngology [id number] Ordered: CT Soft Tissue Neck W/O Dye [id number] Ordered: CT Maxillofacial W/O Dye [id number] Ordered: CT Abdomen & Pelvis With Contrast [id number] Order: Lab OrderGLYCOSYLATED HEMOGLOBIN TEST ([id number]), Collected on: , Sent on: [id number] Order: Lab OrderCompliance Drug Analysis, Ur ([id number]), Collected on: , Sent on: [id number] History Of Present Illness Encounter Date Complaint [...] last filled Percocet 05/25 & Xanax 05/15TGrodi [employer] ,above was reviewed and agreed with MLP [...] she had heart monitor placed today at [facility] in [place]. Pt c/o bilateral groin pain, denies injury. Crista Shi also states her anxiety is very much out of control and has not found anything to help ,above was reviewed and agreed with [facility] check up Patient was seen in [place] a few weeks ago by an ortho doctor, pt states that she got into it with that doctor and explains that she went to see an ortho doctor in [place] instead. Pt is currently scheduled to start [...] Dr. Simon again. OARRS completed, Last Filled [place] 04/[address] Pena, Percocet from [facility], Tramadol 03/[address] Pena & Percocet / from Dr. Silveira [facility] Insomnia The patient pres ents with sleep [...] earlier. OARRS completed, last filled Percocet 03/13TGrodi [employer] Right shoulder pain, neck pain P resents for right shoulder pain d/t fall on 03/10/2021. States her tegretol is causing her to see things and do strange things. Reports that she thought her daughters dog was jumping at her and she dove on the ground. Went to [facility] ER and was diagnosed with a [...] Pt denies any other issues or concerns. HATTIE Shit is having more issues with the swelling [...] r hospital f/u. Pt was admitted to [facility] 01/13/21 for COPD exacerbation. Pt is [...] leg edema. Hospital F/U Pt here today fo r hospital follow up. Pt states she went to [facility] Saturday cause not doing any better [...] 3 days ago. No other issues or concernsTGrodshirley ROWLAND ,above was reviewed and agreed with MLP Shortness [...] f/u ER visit. Pt was evaluated at [place] [facility] on 01/07/21 d/t sob, pt was [...] Pt denies any other issues or concerns. Crista Shi states she was unable to take [...] loss. f/u CT Pt here to [facility]. Pt was evaluated in ED at [facility] last Saturday d/t L face pain and swelling, pt states she was prescribed steroids and Hydrocodone d/t pain, states they also did a CT scan. Pt c/o increased dry mouth that started when she noticed the swelling on her L face/jaw area. Pt denies any other issues or concerns. CLIFTON Shi ,above was reviewed and agreed with MLP Feb-24-2021 sick visit Pt c/o lump uppe r jaw and sore throat. Pt states it started 2 days ago, denies taking any OTC medications. Pt denies any other issues or concerns. Jose GuadalupeHattiet states that she is having trouble swallowing [...] miserable. OARRS completed, last filled Clorazepate 09/06TGrodi [facility] Leg Issues Pt here today wi th [...] with her so they sent her to [facility]. Pt states she went to [facility] and she was offered counseling. Pt states she was never offered to get injections for pain. OARRS completed, last filled [place] 06/27 for 3 daysTGrodi [employer] back pain The problem is w orsening. [...] to pain management to a doctor in [facility] completed, last filled Tramadol 06/01 & 05/30 from Mary Otero out of [facility] Kidney stones Onset: sudden. P ain [...] OARRS completed, no other issues or concernsTGrodi [employer] back pain Location of pain is lower [...] broke. OARRS completed, last filled Tramadol 01/05/2020TGrodi [employer] Musculoskeletal pain It occurs c onstantly and [...] she went to get her colonoscopy at [facility] because Dr. Cramer found a lesion that he wanted to look at again. Pt states she went in for this and her Heart rate was in the 180's so they did not do the colonoscopy and she was kept at [facility] for observation. Pt was allowed to go home the next day. PT states that they recommend her to have a holter monitor and stress test which she has scheduled. Pt was referred to cardiology. She was told she has a leaky valve. PT NEEDS REFILLS ON ALCOHOL PADS, CALCIUM/VIT D, COREG, DULERA, OMEPRAZOLE, MIRAPEX, VITAMIN B1, VENTOLIN. OARRS completed, last filled Tramadol 01/04TGrodi [employer] back pain Location of pain is lower [...] f/u from ER. Pt was evaluated in [facility] on Saturday d/t increased lower back [...] ON XIFAXAN. NO other issues or concernsTGrodi [employer] back pain Onset: gradual w ith injury. [...] WELCHOL, & ZYRTEC. OARRS completed, last filed Percet 07/[address] Martin House. Mika LAZO [...] PT states she last weighed herself at [facility] and she was at 139.0. Pt [...] going to see Dr. Maharaj tomorrow in [place] for PM. Pt states Dr. House had to cut open the top of her R foot and had to grind down a bone. Pt had this done yesterday. Pt is following with him on this. PT NEEDS REFILLS ON ONGLYZA, IBGARD, NEBULIZER SOLUTION, VENTOLIN. OARRS completed, last filled Gabapentin 07/02 for 4 days, Phenobarbital 06/03 & Xanax 05/[address] Remy. TGrodi [employer] Diarrhea Onset: sudden. S tool frequency: 8 [...] OARRS completed, last filled Phenobarbital 06/03, Xanax 05/[address] Remy, Gabapentin 05/19 & Percocet /[address] Gagan Fay. TGrodi [employer] back pain The problem is w orsening. [...] Emmy other issues or concerns. Roxanne ROWLAND ,above was reviewed and agreed with 3 MONTH F/U Pt here today fo r a 3 month follow up. Pt states everything is going well for her. Pt also wants to know results of her recent lab work. Pt states she talked with Rafael the pharmacist from [facility]. They suggested her to get off the [...] is having surgery on Sep 24 at [facility] with Dr. House. [facility] [address] [id number] states she is still having trouble sleeping [...]
[2025-06-15 19:21] VITALS: BP 140/87; PULSE 74; O2SAT 98; BMI 25.7
--- NOTE | 2025-06-15 19:35 | ED.GENADUL1 ---
HPI HPI - General Adult General Chief complaint: Extremity Problem, Nontraumatic Stated complaint: PAIN IN LEFT KNEE/ TOTAL KNEE REPLACEMENT Time Seen by Provider: 06/15/25 19:21 Source: patient Mode of arrival: walk-in Limitations: no limitations History of Present Illness HPI narrative: Patient is a 54-year-old female presenting to the emergency department requesting pain medication for her left knee. Patient is 2 weeks postop from a left knee replacement. She states that she ran out of her Percocet a few days ago, and since then has had breakthrough pain. Apparently there was a miscommunication when her postop appointment was supposed to be. She states that she does have an appointment scheduled tomorrow with her orthopedic surgeon. Other than pain in the left knee, she denies any other symptoms. No fevers or chills. No redness, warmth, or drainage from the surgical site. She has no chest pain or shortness of breath. No recent trauma. Related Data Home Medications ?Medication ?Instructions ?Recorded ?Confirmed alendronate 70 mg tablet 70 mg PO QWEEK 11/05/23 02/09/25 alprazolam 1 mg tablet 1 mg PO TID PRN anxiety 11/05/23 02/09/25 aripiprazole 15 mg tablet 15 mg PO DAILY 11/05/23 02/09/25 atorvastatin 80 mg tablet 80 mg PO DAILY 11/05/23 02/09/25 calcium carbonate 600 mg PO BID 11/05/23 02/09/25 carvedilol 25 mg tablet 25 mg PO BID 11/05/23 02/09/25 cetirizine 10 mg tablet 10 mg PO DAILY 11/05/23 02/09/25 albuterol sulfate 90 mcg/actuation inhalation 02/09/25 aerosol inhaler blood sugar diagnostic (OneTouch 02/09/25 02/09/25 Ultra Test strips) diltiazem HCl 120 mg mg PO 02/09/25 capsule,extended release 24 hr ergocalciferol (vitamin D2) 1,250 02/09/25 mcg (50,000 unit) capsule furosemide 20 mg tablet mg 02/09/25 lidocaine 5 % topical ointment 02/09/25 loperamide 2 mg capsule mg 02/09/25 metformin 500 mg tablet mg 02/09/25 mirabegron 50 mg tablet,extended mg PO 02/09/25 release 24 hr (Myrbetriq) montelukast 10 mg tablet mg 02/09/25 nabumetone 500 mg tablet mg 02/09/25 omeprazole 40 mg capsule,delayed mg 02/09/25 release ondansetron 4 mg disintegrating mg 02/09/25 tablet oxycodone-acetaminophen 10 mg-325 tab 02/09/25 mg tablet solifenacin 10 mg tablet mg PO 02/09/25 thiamine mononitrate (vit B1) 100 mg 02/09/25 mg tablet (Vitamin B-1 (mononitrate)) Previous Rx's ?Medication ?Instructions ?Recorded ondansetron 4 mg disintegrating 4 mg PO Q6H PRN nausea and 02/10/25 tablet vomiting #10 tabs tramadol 50 mg tablet 50 mg PO Q12H PRN pain 3 days #6 03/09/25 tabs orphenadrine citrate 100 mg 100 mg PO Q12H PRN pain #14 tabs 05/03/25 tablet,extended release Allergies Allergy/AdvReac Type Severity Reaction Status Date / Time Iodinated Contrast Media Allergy Severe shortness Verified 06/15/25 19:27 of breath adhesive tape Allergy Blister Verified 06/15/25 19:27 amitriptyline Allergy Hives Verified 06/15/25 19:27 amoxicillin Allergy Anaphylaxis Verified 06/15/25 19:27 atomoxetine (From Strattera) Allergy Agitated Verified 06/15/25 19:27 bupropion (From Wellbutrin) Allergy Hives Verified 06/15/25 19:27 codeine Allergy Hives Verified 06/15/25 19:27 dexamethasone Allergy Hives Verified 06/15/25 19:27 divalproex sodium (From Allergy Hives Verified 06/15/25 19:27 Depakote) duloxetine (From Cymbalta) Allergy Hives Verified 06/15/25 19:27 fluticasone (From Advair Allergy Anaphylaxis Verified 06/15/25 19:27 Diskus) gabapentin Allergy Anaphylaxis Verified 06/15/25 19:27 ibuprofen Allergy Anaphylaxis Verified 06/15/25 19:27 ketorolac (From Toradol) Allergy Anaphylaxis Verified 06/15/25 19:27 meloxicam (From Mobic) Allergy Anaphylaxis Verified 06/15/25 19:27 methadone Allergy Anaphylaxis Verified 06/15/25 19:27 milnacipran (From Savella) Allergy Anaphylaxis Verified 06/15/25 19:27 nitrofurantoin (From Allergy Anaphylaxis Verified 06/15/25 19:27 Macrobid) paroxetine (From Paxil) Allergy Confusion Verified 06/15/25 19:27 Penicillins Allergy Altered Verified 06/15/25 19:27 Sense of Taste pregabalin (From Lyrica) Allergy Anxiety Verified 06/15/25 19:27 ropinirole (From Requip) Allergy Hives Verified 06/15/25 19:27 salmeterol (From Advair Allergy Hives Verified 06/15/25 19:27 Diskus) topiramate (From Topamax) Allergy Hives Verified 06/15/25 19:27 ziprasidone Allergy Hives Verified 06/15/25 19:27 acetaminophen (From Kennedy) AdvReac itch Verified 06/15/25 19:27 hydrocodone (From Kennedy) AdvReac itch Verified 06/15/25 19:27 fish Allergy Anaphylaxis Uncoded 06/15/25 19:27 Opioid HPI Opioid Management Most Recent Opioid Data: Last Pain Scale 8 05/03/25, 14:36 Ur Phencyclidine Scrn, (NEGATIVE) Negative 09/20/23, 08:52 Review of Systems ROS Status of ROS 10 or more systems reviewed and unremarkable except as noted in history and below [facility] Social History Smoking status: Never smoker Little interest or pleasure in doing things: not at all Feeling down, depressed, or hopeless: not at all Exam Narrative Exam Narrative: CONSTITUTIONAL: Well-appearing, does not appear to be in acute distress, answering questions and following commands appropriately SKIN: Was warm and dry. EYES: Sclerae white. EARS, NOSE, THROAT: Moist oral mucosa. RESPIRATORY: Nonlabored respirations. CARDIOVASCULAR: Normal rate and regular rhythm. There is no S3, S4, murmur, rub. GASTROINTESTINAL: Abdomen is nondistended. MUSCULOSKELETAL: The left anterior knee has a surgical dressing. I offered to remove the dressing and replace it, or the patient is insistent that it remains there until she sees orthopedic surgeon tomorrow. While respecting her wishes, there does not appear to be evidence of infection. There is no redness, warmth, joint swelling, purulent drainage, or any signs of septic arthritis or postop infection. She has good range of motion in the left knee with flexion and extension. There is no lower extremity edema. NEUROLOGIC: Patient is awake and alert. 5/5 strength with knee flexion and extension on the left. Sensation intact light touch throughout the left lower extremity. She is able to ambulate unassisted. Constitutional Vital Signs, click to edit/add: Last Vital Signs Pulse 74 06/15/25 19:21 Resp 14 06/15/25 19:21 BP 140/87 06/15/25 19:21 Pulse Ox 98 06/15/25 19:21 Course Vital Signs Vital signs: Vital Signs Pulse Rate 74 06/15/25 19:21 Respiratory Rate 14 06/15/25 19:21 Blood Pressure 140/87 06/15/25 19:21 Pulse Oximetry 98 06/15/25 19:21 Pulse Rate 74 06/15/25 19:21 Respiratory Rate 14 06/15/25 19:21 Blood Pressure 140/87 06/15/25 19:21 Pulse Oximetry 98 06/15/25 19:21 Medical Decision Making MDM Narrative Medical decision making narrative: Patient is a 54-year-old female presenting to the emergency department questing pain medication for postoperative pain from her recent left knee replacement. Her vital signs on arrival are within normal limits. She is afebrile and hemodynamically stable. Patient's presentation is consistent with normal postoperative pain. I have low concern for postop infection or septic arthritis. No lower extremity edema to suggest DVT. Patient was treated with with a one-time dose of Percocet 10 mg here in the ED. She does have a safe ride home and did not drive herself here. I do believe the patient is stable for discharge. Patient has an appointment with her orthopedic surgeon tomorrow. Return precautions were given including any new or worsening symptoms. Patient understands and agrees to the plan. FINAL IMPRESSION: #Acute postoperative left knee pain #History of recent left knee replacement DISPOSITION: Discharged home CONDITION: Good Medical Records Medical records reviewed: Yes I reviewed the patient's medical records Discharge Plan Discharge Chief Complaint: Extremity Problem, Nontraumatic Clinical Impression: Post-op pain Patient Disposition: Home, Self-Care Time of Disposition Decision: 19:36 Condition: Good Mode of Transportation: Private Vehicle Prescriptions / Home Meds: No Action metformin 500 mg tablet loperamide 2 mg capsule (DME) OneTouch Ultra Test Strip MISCELLANEOUS omeprazole 40 mg capsule,delayed release(DR/EC) oxycodone-acetaminophen 10-325 mg tablet diltiazem HCl 120 mg capsule,extended release 24hr PO montelukast 10 mg tablet furosemide 20 mg tablet ergocalciferol (vitamin D2) 1,250 mcg (50,000 unit) capsule albuterol sulfate 90 mcg/actuation HFA aerosol inhaler INHALATION ondansetron 4 mg tablet,disintegrating nabumetone 500 mg tablet solifenacin 10 mg tablet PO thiamine mononitrate (vit B1) [Vitamin B-1 (mononitrate)] 100 mg tablet lidocaine 5 % ointment mirabegron [Myrbetriq] 50 mg tablet extended release 24 hr PO ondansetron 4 mg tablet,disintegrating 4 mg PO Q6H PRN (Reason: nausea and vomiting) Qty: 10 0RF tramadol 50 mg tablet 50 mg PO Q12H PRN (Reason: pain) 3 Days Qty: 6 0RF orphenadrine citrate 100 mg tablet extended release 100 mg PO Q12H PRN (Reason: pain) Qty: 14 0RF alendronate 70 mg tablet 70 mg PO QWEEK alprazolam 1 mg tablet 1 mg PO TID PRN (Reason: anxiety) aripiprazole 15 mg tablet 15 mg PO DAILY atorvastatin 80 mg tablet 80 mg PO DAILY calcium carbonate 600 mg calcium (1,500 mg) tablet 600 mg PO BID carvedilol 25 mg tablet 25 mg PO BID cetirizine 10 mg tablet 10 mg PO DAILY Print Language: Andorran Instructions: Pain Management (ED) Referrals: IVON GIRON [Primary Care Provider, Family Practice] - 1 week
[2025-06-15] MEDS: OXYCODONE HCL/ACETAMINOPHEN 5MG/325MG 2 TAB PO (19:44)
--- OUTSIDE RECORDS SUMMARY | 2025-06-15 19:51 | XMS_ITS | Encounter Summary ---
Author Organization [facility] Address [address] [place] [address] Care Team Providers Care Grade Teacher Name Role Phone Robert Hathaway DO Primary Care Provider [phone] Reason for Visit * ReasonCommentsMed Refill Encounter Details DateTypeDepartmentCare Team (Latest Contact Info)Vejwetlfurm05/22/2025Refill [facility] [address] [place] [address] [place] [phone] Loco Napier MD [address] [place] [address] Status post left knee replacement Social History Tobacco UseTypesPacks/DayYears UsedDateSmoking Tobacco: FormerCigarettes Smokeless Tobacco: NeverAlcohol UseStandard Drinks/WeekCommentsNot Currently0 (1 standard drink = 0.6 oz pure alcohol)Humiliation, Afraid, Rape, and Kick questionnaireAnswerDate RecordedWithin the last year, have you been afraid of your partner or ex-partner?No11/03/2024Emotionally AbusedNot on file11/03/2024 Physically AbusedNot on file11/03/2024Sexually AbusedNot on 11/03/2024PHQ-2 AnswerDate RecordedPatient Health Questionnaire-2 [id number] CommentsNoSex and Gender InformationValueDate RecordedSex Assigned at Naqkxq4506/16/2024 3:16 PM EDTLegal DwgQoamhz23/29/2022 9:51 PM EDTGender Identity Nqltzf4906/16/2024 3:16 PM EDTSexual OrientationChoose not to /30/2025 12:08 PM EDTdocumented as of this encounter Plan of Treatment DateTypeDepartmentCare Team (Latest Contact Info)Fhrsxsaxuzx94/29/2025 11:00 AM EDTAppointment [facility] [address] [place] [address] [place] [phone] 06/16/2025 11:30 AM EDTOffice Visit [facility] [address] [place] [address] [place] [phone] Emiliana Abad MD [address] [place] [address] [place] [address] documented as of this encounter Visit Diagnoses Diagnosis Status post left knee replacement Status post total left knee replacement- Primary documented in this encounter Additional Health Concerns InfectionOnset DateLast IndicatedResolved [id number] as of this encounter Care Teams Team MemberRelationshipSpecialtyStart DateEnd Date Robert Hathaway DO [address], [facility] [place] [address] PCP - GeneralFamily Fmpdmbak09/29/24documented as of this encounter
--- OUTSIDE RECORDS SUMMARY | 2025-06-15 19:51 | XMS_ITS | Encounter Summary ---
Author Organization [facility] Address [address] [place] [address] Care Team Providers Care Sign Shop Supervisor Name Role Phone Robert Hathaway DO Primary Care Provider [phone] Reason for Visit * ReasonOnset DateCommentsMed Ihddze5806/12/2025 Encounter Details DateTypeDepartmentCare Team (Latest Contact Info)Mpvkmmjmhhm31/25/2025Refill [facility] [address] [facility] [place] [phone] Loco Napier MD [address] [place] [address] Status post left knee replacement Social History Tobacco UseTypesPacks/DayYears UsedDateSmoking Tobacco: FormerCigarettes Smokeless Tobacco: NeverAlcohol UseStandard Drinks/WeekCommentsNot Currently0 (1 standard drink = 0.6 oz pure alcohol)Humiliation, Afraid, Rape, and Kick questionnaireAnswerDate RecordedWithin the last year, have you been afraid of your partner or ex-partner?No11/03/2024Emotionally AbusedNot on file11/03/2024 Physically AbusedNot on 11/03/2024Sexually AbusedNot on 11/03/2024PHQ-2 AnswerDate RecordedPatient Health Questionnaire-2 [id number] CommentsNoSex and Gender InformationValueDate RecordedSex Assigned at Wvqkvr1706/16/2024 3:16 PM EDTLegal QnqMrnyur14/29/2022 9:51 PM EDTGender Identity Npkuwa2506/16/2024 3:16 PM EDTSexual OrientationChoose not to cktzseoh39/30/2025 12:08 PM EDTdocumented as of this encounter Miscellaneous Notes * Telephone Encounter - Wilma Golden MA - 06/15/2025 3:51 PM EDT Geri, Please disregard. Pt has appt tomorrow and needs to see Dr Pollo Laguerre. Pt has been called and notified * Telephone Encounter - Wilma Golden MA - 06/15/2025 3:49 PM EDT Pt calling again and states she is in A LOT of pain. * Telephone Encounter - Theresa Elizabeth MA - 06/15/2025 1:05 PM EDT Patient called and is checking status of pain medication. She states she is out of the medication. * Addendum Note - Theresa Elizabeth MA - 06/15/2025 9:13 AM EDTAddended by: THERESA ELIZABETH on: 06/15/2025 09:13 AM Modules accepted: Orders * Telephone Encounter - Theresa Elizabeth MA - 06/15/2025 9:12 AM EDT Patient called to request status refill on medication documented in this encounter Plan of Treatment DateTypeDepartmentCare Team (Latest Contact Info)Uikrdspanti12/29/2025 11:00 AM EDTAppointment [facility] [address] [place] [address] [place] [phone] 06/16/2025 11:30 AM EDTOffice Visit [facility] [address] [place] [address] [place] [phone] Emiliana Abad MD [address] [place] [address] [place] [phone] documented as of this encounter Visit Diagnoses Diagnosis Status post left knee replacement Status post total left knee replacement- Primary documented in this encounter Additional Health Concerns InfectionOnset DateLast IndicatedResolved [id number] as of this encounter Care Teams Team MemberRelationshipSpecialtyStart DateEnd Date Robert Hathaway DO [address] [place] [address] PCP - GeneralFamily Fefkxuql39/29/24documented as of this encounter
--- OUTSIDE RECORDS SUMMARY | 2025-06-15 19:51 | XMS_ITS | Encounter Summary ---
Author Organization [facility] Address [address] [place] [address] Care Team Providers Care Puppy Trainer Name Role Phone Robert Hathaway DO Primary Care Provider [phone] Reason for Referral * Consultation (Routine) - Pending ReviewSpecialtyDiagnoses / ProceduresReferred By ContactReferred To ContactPain Medicine Diagnoses Status post total left knee replacement Procedures [place] OFFICE[facility]IENT [facility] 60 MINUTES Emiliana Abad MD [address] [place] [phone] Phone: tel: fax: Luca Licea MD [address] [facility], [address] [place] [address] Phone: tel: fax: Referral IDStatusReasonStart DateExpiration DateVisits RequestedVisits [id number] Review Specialty Services Required Reason for Visit * ReasonOnset TjiuQatielzhKdcu84/14/2025 Encounter Details DateTypeDepartmentCare Team (Latest Contact Info)Gyuorpaupaa50/14/2025Telephone [facility] [address] [place] [address] [place] [address] Maya Rodriguez RN Pain Social History Tobacco UseTypesPacks/DayYears UsedDateSmoking Tobacco: FormerCigarettes Smokeless Tobacco: NeverAlcohol UseStandard Drinks/WeekCommentsNot Currently0 (1 standard drink = 0.6 oz pure alcohol)Humiliation, Afraid, Rape, and Kick questionnaireAnswerDate RecordedWithin the last year, have you been afraid of your partner or ex-partner?No11/03/2024Emotionally AbusedNot on file11/03/2024 Physically AbusedNot on file11/03/2024Sexually AbusedNot on file11/03/2024PHQ-2 AnswerDate RecordedPatient Health Questionnaire-2 [id number] CommentsNoSex and Gender InformationValueDate RecordedSex Assigned at Uqfiwd0606/16/2024 3:16 PM EDTLegal XwuYqqqhq66/29/2022 9:51 PM EDTGender Identity Ycssou7606/16/2024 3:16 PM EDTSexual OrientationChoose not to mzckjgyf43/30/2025 12:08 PM EDTdocumented as of this encounter Miscellaneous Notes * Telephone Encounter - Maya Rodriguez RN - 06/03/2025 12:12 PM EDT Updated patient with Dr Abad's message. Patient had no other questions or concerns. * Telephone Encounter - Maya Rodriguez RN - 06/03/2025 10:31 AM EDT Patient returned call stating she would like [facility]. I sent a message to ELDON Sotomayor to assist with this and transferred the call the Светлана. Prior to this I asked the patient if she received my voicemail and that JAGRUTI Laguerre put in a referral to pain management. She states she already sees pain management in [place] but they told her previously they would not prescribed narcotics after surgery. I read word for word Dr Abad's message he sent yesterday. Patient verbalized understanding but stated that Dr Abad told her she could take the pain medication every 4 hours and now she will run out. I informed patient again what his message said. I stated I would send him a message but she should also notify her pain management of her increase of pain since surgery. Patient verbalized understanding. * Addendum Note - Shade Scott MA - 06/03/2025 8:50 AM EDTAddended by: SHADE SCOTT on: 06/03/2025 08:50 AM Modules accepted: Orders * Telephone Encounter - Maya Rodriguez RN - 06/03/2025 8:48 AM EDT Returned call to patient. Left a voicemail. Stated that JAGRUTI Laguerre put in a referral in for pain management and they should be giving her a call or she can call them. She should be able to see this through her my chart. I stated that Geri Ferris MD spoke with her Saturday evening 06/01 regarding the pain. Instructed her to continue to ice, elevate, wear compression stockings/shayy bandage. She should rotate Tylenol in between the pain medication. As far as [facility] I am unsure why she is not able to have this. ELDON Sotomayor set this up prior to surgery. From her note it looks like [facility] first availableis 06/09. I have asked Светлана to contact patient and also gave the patient her number as well. * Telephone Encounter - Theresa Ward MA - 06/02/2025 11:57 AM EDT Patient called with concerns of being in great pain. She states that she was told meds would be refilled due to being told to increase them to every 4 hours. She states she increased but it is not helping with pain. She would like a call back in regard to why her pain is so bad. She also states that she is unable to get Home Health Services. Associate Accountant instructed patient to call insurance company for recommendation. Pharmacy [facility] [place] Patient # [phone] * Telephone Encounter - Maya Rodriguez RN - 06/01/2025 3:39 PM EDT I spoke to the patient to see how she is doing after her recent surgery. Ms Meza states her pain is high and would like to know if she can take the Percocet every 4 hours. I have sent a message to Dr Abad. I informed patient that unfortunately I am only here until 430 today and will not be here tomorrow. If her pain is uncontrolled throughout the night to call and ask for the resident commercial drone pilot. Patient verbalized understanding. She is using ice and elevating. She states her knee is too swollen to wear her stockings. I instructed patient to use an shayy bandage and wrap from her toes to above her knee/mid thigh to help with swelling. Patient verbalized understanding. She is taking all the medication she was prescribed at discharge. Per Dr Abad she only needs to take Aspirin 81mg once a day. She states she has not heard from [facility] physical therapy. I reached out to ELDON Sotomayor and updated the patient that [facility] should be reaching out to her. Patient verbalized understanding. She has a post op appointment on June 16 at 1130. She had no other questions or concerns. Addendum: Geri Ferris MD spoke with patient on 06/01 regarding her increase in pain. documented in this encounter Plan of Treatment DateTypeDepartmentCare Team (Latest Contact Info)Ysuaiwnjqct88/29/2025 11:00 AM EDTAppointment [facility] [address] [place] [address] [place] [phone] 06/16/2025 11:30 AM EDTOffice Visit [facility] [address] [place] [address] [place] [phone] Emiliana Abad MD [address] [place] [phone] NameTypePriorityAssociated DiagnosesOrder ScheduleAmbulatory referral to Pain MedicineOutpatient ReferralRoutine Status post total left knee replacement Expected: 06/03/2025 (Approximate), Expires: 12/02/2025documented as of this encounter Visit Diagnoses Diagnosis Status post total left knee replacement- Primary Status post total left knee replacement- Primary documented in this encounter Additional Health Concerns InfectionOnset DateLast IndicatedResolved FuvjWGHP65/08/118753documented as of this encounter Care Teams Team MemberRelationshipSpecialtyStart DateEnd Date Robert Hathaway DO [address] [email or web address] [place] [address] PCP - GeneralFamily Shhakpxg26/29/24documented as of this encounter
--- OUTSIDE RECORDS SUMMARY | 2025-06-15 19:51 | XMS_ITS | Encounter Summary ---
Author Organization [facility] Address [address] [place] [address] Care Team Providers Care Longshore Equipment Operator Name Role Phone Robert Hathaway DO Primary Care Provider [phone] Encounter Details DateTypeDepartmentCare Team (Latest Contact Info)Cntmuoyaxns53/14/2025Telephone [facility] [address] [place] [address] Maya Rodriguez, [place] Social History Tobacco UseTypesPacks/DayYears UsedDateSmoking Tobacco: FormerCigarettes Smokeless Tobacco: NeverAlcohol UseStandard Drinks/WeekCommentsNot Currently0 (1 standard drink = 0.6 oz pure alcohol)Humiliation, Afraid, Rape, and Kick questionnaireAnswerDate RecordedWithin the last year, have you been afraid of your partner or ex-partner?No11/03/2024Emotionally AbusedNot on file11/03/2024 Physically AbusedNot on file11/03/2024Sexually AbusedNot on file11/03/2024PHQ-2 AnswerDate RecordedPatient Health Questionnaire-2 [id number] CommentsNoSex and Gender InformationValueDate RecordedSex Assigned at Oomkec5106/16/2024 3:16 PM EDTLegal IjpPqtnvj62/29/2022 9:51 PM EDTGender Identity Ajhdxm1906/16/2024 3:16 PM EDTSexual OrientationChoose not to wyxajuhe27/30/2025 12:08 PM EDTdocumented as of this encounter Plan of Treatment DateTypeDepartmentCare Team (Latest Contact Info)Nmqenmihiyd24/29/2025 11:00 AM EDTAppointment [facility] [address] [place] [address] [place] [address] 06/16/2025 11:30 AM EDTOffice Visit [facility] [address] [place] [address] [place] [address] Emiliana Abad MD [address] [place] [address] [place] [address] documented as of this encounter Visit Diagnoses Not on filedocumented in this encounter Additional Health Concerns InfectionOnset DateLast IndicatedResolved IqoqAKHV29/08/702604documented as of this encounter Care Teams Team MemberRelationshipSpecialtyStart DateEnd Date Robert Hathaway DO [address] [place] [address] PCP - GeneralFamily Eatzuozl38/29/24documented as of this encounter
--- OUTSIDE RECORDS SUMMARY | 2025-06-15 19:51 | XMS_ITS | Encounter Summary ---
Author Organization [facility] Address [address] [place] [address] Care Team Providers Care Arts Therapist Name Role Phone Robert Hathaway DO Primary Care Provider [phone] Encounter Details DateTypeDepartmentCare Team (Latest Contact Info)Dcwlruylvnp07/16/2025Orders Only [facility] [address] [place] [address] Loco Napier MD [address] [place] [phone] Status post left knee replacement Social History Tobacco UseTypesPacks/DayYears UsedDateSmoking Tobacco: FormerCigarettes Smokeless Tobacco: NeverAlcohol UseStandard Drinks/WeekCommentsNot Currently0 (1 standard drink = 0.6 oz pure alcohol)Humiliation, Afraid, Rape, and Kick questionnaireAnswerDate RecordedWithin the last year, have you been afraid of your partner or ex-partner?No11/03/2024Emotionally AbusedNot on file11/03/2024 Physically AbusedNot on file11/03/2024Sexually AbusedNot on 11/03/2024PHQ-2 AnswerDate RecordedPatient Health Questionnaire-2 [id number] CommentsNoSex and Gender InformationValueDate RecordedSex Assigned at Cgqtbo3306/16/2024 3:16 PM EDTLegal HquSoqpbb67/29/2022 9:51 PM EDTGender Identity Mkcmnh2606/16/2024 3:16 PM EDTSexual OrientationChoose not to jywjtsaj79/30/2025 12:08 PM EDTdocumented as of this encounter Plan of Treatment DateTypeDepartmentCare Team (Latest Contact Info)Souqwoquitm15/29/2025 11:00 AM EDTAppointment [facility] [address] [place] [address] [place] [phone] 06/16/2025 11:30 AM EDTOffice Visit [facility] [address] [place] [address] [place] [phone] Emiliana Abad MD [address] [place] [phone] documented as of this encounter Visit Diagnoses Diagnosis Status post left knee replacement Status post total left knee replacement- Primary documented in this encounter Additional Health Concerns InfectionOnset DateLast IndicatedResolved WzhiXHWX78/08/797294documented as of this encounter Care Teams Team MemberRelationshipSpecialtyStart DateEnd Date Robert Hathaway DO [address] [facility] [place] [address] PCP - GeneralFamily Iqibaaml55/29/24documented as of this encounter
--- OUTSIDE RECORDS SUMMARY | 2025-06-15 19:51 | XMS_ITS | Encounter Summary ---
Author Organization [facility] Address [address] [place] [address] Care Team Providers Care Tower Director Name Role Phone Robert Hathaway DO Primary Care Provider [phone] Encounter Details DateTypeDepartmentCare Team (Latest Contact Info)Miqvmfejelk68/14/2025Telephone [facility] [address] [place] [address] Maya Rodriguez, [place] Social History Tobacco UseTypesPacks/DayYears UsedDateSmoking Tobacco: FormerCigarettes Smokeless Tobacco: NeverAlcohol UseStandard Drinks/WeekCommentsNot Currently0 (1 standard drink = 0.6 oz pure alcohol)Humiliation, Afraid, Rape, and Kick questionnaireAnswerDate RecordedWithin the last year, have you been afraid of your partner or ex-partner?No11/03/2024Emotionally AbusedNot on file11/03/2024 Physically AbusedNot on file11/03/2024Sexually AbusedNot on file11/03/2024PHQ-2 AnswerDate RecordedPatient Health Questionnaire-2 [id number] CommentsNoSex and Gender InformationValueDate RecordedSex Assigned at Iboceq4506/16/2024 3:16 PM EDTLegal JmbEindne96/29/2022 9:51 PM EDTGender Identity Bnpjwi6506/16/2024 3:16 PM EDTSexual OrientationChoose not to uxipuuqn67/30/2025 12:08 PM EDTdocumented as of this encounter Plan of Treatment DateTypeDepartmentCare Team (Latest Contact Info)Qtoyvpxwlfn21/29/2025 11:00 AM EDTAppointment [facility] [address] [place] [address] [place] [address] 06/16/2025 11:30 AM EDTOffice Visit [facility] [address] [place] [address] [place] [address] Emiliana Abad MD [address] [place] [address] [place] [address] documented as of this encounter Visit Diagnoses Not on filedocumented in this encounter Additional Health Concerns InfectionOnset DateLast IndicatedResolved OyzxKLOL02/08/558117documented as of this encounter Care Teams Team MemberRelationshipSpecialtyStart DateEnd Date Robert Hathaway DO [address] [place] [address] PCP - GeneralFamily Gdmbxwuf62/29/24documented as of this encounter
--- OUTSIDE RECORDS SUMMARY | 2025-06-15 19:51 | XMS_ITS | Encounter Summary ---
Author Organization [facility] Address [address] [place] [address] Care Team Providers Care Field Broomer Name Role Phone Robert Hathaway DO Primary Care Provider [phone] Reason for Visit * ReasonOnset DateCommentsMed Tedmyy2106/08/2025 Encounter Details DateTypeDepartmentCare Team (Latest Contact Info)Fmrgmswmymv20/21/2025Refill [facility] [address] [place] [address] [place] [address] Dianne Palacios MA Status post left knee replacement Social History Tobacco UseTypesPacks/DayYears UsedDateSmoking Tobacco: FormerCigarettes Smokeless Tobacco: NeverAlcohol UseStandard Drinks/WeekCommentsNot Currently0 (1 standard drink = 0.6 oz pure alcohol)Humiliation, Afraid, Rape, and Kick questionnaireAnswerDate RecordedWithin the last year, have you been afraid of your partner or ex-partner?No11/03/2024Emotionally AbusedNot on file11/03/2024 Physically AbusedNot on file11/03/2024Sexually AbusedNot on file11/03/2024PHQ-2 AnswerDate RecordedPatient Health Questionnaire-2 [id number] CommentsNoSex and Gender InformationValueDate RecordedSex Assigned at Znmipm6806/16/2024 3:16 PM EDTLegal NvpYzrjwo33/29/2022 9:51 PM EDTGender Identity Ktkgkk0606/16/2024 3:16 PM EDTSexual OrientationChoose not to /30/2025 12:08 PM EDTdocumented as of this encounter Miscellaneous Notes * Telephone Encounter - Jessica Manzano MA - 06/08/2025 3:00 PM EDT Called about prescription oxycodone. documented in this encounter Plan of Treatment DateTypeDepartmentCare Team (Latest Contact Info)Vvmaqnavjvd21/29/2025 11:00 AM EDTAppointment [facility] [address] [place] [address] [place] [phone] 06/16/2025 11:30 AM EDTOffice Visit [facility] [address] [place] [address] [place] [address] Emiliana Abad MD [address] [place] [phone] documented as of this encounter Visit Diagnoses Diagnosis Status post left knee replacement Status post total left knee replacement- Primary documented in this encounter Additional Health Concerns InfectionOnset DateLast IndicatedResolved [id number] as of this encounter Care Teams Team MemberRelationshipSpecialtyStart DateEnd Date Robert Hathaway DO [address] [facility] [place] [address] PCP - GeneralFamily Twrvclzg62/29/24documented as of this encounter
--- OUTSIDE RECORDS SUMMARY | 2025-06-15 19:51 | XMS_ITS | Encounter Summary ---
Author Organization [facility] Address [address] [place] [address] Care Team Providers Care It Security Engineer Name Role Phone Robert Hathaway DO Primary Care Provider [phone] Светлана Walters Unavailable Unavailable Encounter Details DateTypeDepartmentCare Team (Latest Contact Info)Kcezoqlclic04/09/2025Patient Outreach [facility] [address] [place] [phone] Светлана Walters LISW-S [place] Social History Tobacco UseTypesPacks/DayYears UsedDateSmoking Tobacco: FormerCigarettes Smokeless Tobacco: NeverAlcohol UseStandard Drinks/WeekCommentsNot Currently0 (1 standard drink = 0.6 oz pure alcohol)Humiliation, Afraid, Rape, and Kick questionnaireAnswerDate RecordedWithin the last year, have you been afraid of your partner or ex-partner?No11/03/2024Emotionally AbusedNot on file11/03/2024 Physically AbusedNot on file11/03/2024Sexually AbusedNot on 11/03/2024PHQ-2 AnswerDate RecordedPatient Health Questionnaire-2 Vkpal208 CommentsUnknownSex and Gender InformationValueDate RecordedSex Assigned at Eosieh3706/16/2024 3:16 PM EDTLegal WjsCmmeps09/29/2022 9:51 PM EDTGender Identity Bhtowc6906/16/2024 3:16 PM EDTSexual OrientationChoose not to wjrbmbze86/30/2025 12:08 PM EDTdocumented as of this encounter Functional Status * QuestionAnswerDate of IjcpbvwicbNjhtyaBD845/7505/31/2025 12:10 PM Sonya Loo, LTNfohp9711/13/2025 12:10 PM Sonya Loo RNHeart Rate Source Lfwaded3205/31/2025 12:10 PM Sonya Loo RN * Ganesh ScaleQuestionAnswerDate of AssessmentAuthorSensory Perceptions4 05/31/2025 5:58 AM Polly He RNMoisture41 5:58 AM Polly He, GTSucdzwmb928/13/2025 5:58 AM Polly He RNMobility4 05/31/2025 5:58 AM Polly He, QVLpsyaxmba147/13/2025 5:58 AM Polly He, RNFriction and Avlgz658 5:58 AM Polly He RNBraden Scale Wbdni6235/13/2025 5:58 AM Polly He RN * Patient's Stated Pain GoalAnswerDate of AssessmentAuthorNo pain05/31/2025 12:31 PM Sonya Loo RN * Pain Assessment TimerQuestionAnswerDate of AssessmentAuthorRestart Pain Assessment EnsurPsm30/13/2025 3:49 PM Lorelei Pineda OT * Sepsis Model ScoresQuestionAnswerDate of AssessmentAuthorEarly Detection of Sepsis Score0.510 12:31 PM Kriss Mix * Pain AssessmentQuestionAnswerDate of AssessmentAuthorPain LocationKnee 05/31/2025 3:49 PM Lorelei Pineda OTPain LockeygdtklJiry28/13/2025 3:49 PM Lorelei Pineda OTPain InterventionsEmotional support;Relaxation technique;Medication (See MAR)05/31/2025 10:32 AM Sonya Loo RNResponse to Interventionsno lsyugnlljgw41/13/2025 10:32 AM EDT Sonya Hernandez RNWong-Clark FACES Pain Wqwvip297/13/2025 9:56 AM Sonya Loo RNPain TypeAcute pain;Surgical pain05/31/2025 3:49 PM Lorelei Pineda OTPain Wuxvs678 3:49 PM Lorelei Pineda OTPain Assessment0-101 3:49 PM Lorelei Pineda, OT * Patient BehaviorsAnswerDate of JxqtqndvjxZutxpeNett39/13/2025 12:31 PM EDT Sonya Hernandez RN * Head, Ears, Eyes, Nose, and Throat (HEENT)QuestionAnswerDate of Assessment AuthorHead, Ears, Eyes, Nose, and Throat (WDL)WDL1 11:25 AM EDT Shady Monsalve RN * HearingAnswerDate of UqqaeispkbGrsoayOAO50/13/2025 3:51 PM Lorelei Pineda OT * Skin IntegrityAnswerDate of AssessmentAuthorIncision site covered. All other visualized areas qflumo7405/31/2025 3:51 PM Lorelei Pineda OT * EdemaAnswerDate of AssessmentAuthorMild to L knee post-op05/31/2025 3:51 PM Lorelei Pineda, JOHNY * QuestionAnswerDate of DdpkylbxxaDtaxduWvng14.91 9:57 AM Donaldo Scott CAATemp ccgMlvxmivn24/13/2025 9:57 AM Donaldo Scott CAA * QuestionAnswerDate of AssessmentAuthorCold TherapyApplied (Comment)05/31/2025 11:25 AM Shady Hutchins RNAdditional Comfort/Environmental Interventions Cold gobulsr6505/31/2025 11:25 AM Shady Hutchins RN * 6 Clicks (Mobility)QuestionAnswerDate of AssessmentAuthorHelp from another person climbing 3-5 steps with a yyohyfh104/13/2025 1:34 PM EDTEckhart, Masyn, PTHelp from another person turning from your back to your side while in a flat bed without using dqvcfvly427/13/2025 1:34 PM Lauren Jarvis, PTHelp from another person moving from lying on your back to sitting on the side of a flat bed without using pcqnuugo603/13/2025 1:34 PM Lauren Jarvis, PTHelp from another person moving to and from a bed to a chair (including a wheelchair)3 05/31/2025 1:34 PM Lauren Jarvis, PTHelp from another person standing up from a chair using your arms (e.g. wheelchair or bedside chair) 1:34 PM Lauren Jarvis, PTHelp from another person to walk in hospital room 1:34 PM Lauren Jarvis, PTMobility 6 Clicks T-Nhsao577705/31/2025 1:34 PM Lauren Jarvis, PT * Vital SignsQuestionAnswerDate of FjidsispdmFlozyuYO568/7505/31/2025 12:10 PM Sonya Loo, JHToeta5811/13/2025 12:10 PM Sonya Loo GAIaph08 05/31/2025 12:10 PM Sonya Loo QFOlA34256/13/2025 12:10 PM Sonya Loo RNHeart Rate LhcnwwNqlnxbc81/13/2025 12:10 PM Sonya Loo RN MAP (mmHg)8705/31/2025 12:10 PM Sonya Loo RNPulse rate from Plethysmogram (bpm)7205/31/2025 11:10 AM Sonya Loo RN * QuestionAnswerDate of AssessmentAuthorLevel of LulzebpkxjukpEhbyj80/13/2025 11:25 AM Shady Hutchins RNCognitionFollows lcjtrytt11/13/2025 11:10 AM Sonya Loo RN * QuestionAnswerDate of AssessmentAuthorCardiac VsbjqzCMY86/13/2025 11:25 AM Shady Null RNCardiac BjfvkapcmmDggwtfm78/13/2025 11:25 AM Shady Hutchins RNHeart SoundsS1, S205/31/2025 11:10 AM Sonya Loo RN * GastrointestinalQuestionAnswerDate of AssessmentAuthorGastrointestinal (WDL)X 05/31/2025 11:25 AM Shady Hutchins RNAbdomen InspectionSoft;Nondistended 05/31/2025 11:25 AM Shady Hutchins RNGastrointestinal SymptomsNone 05/31/2025 11:25 AM Shady Hutchins RN * Peripheral VascularQuestionAnswerDate of AssessmentAuthorPeripheral Vascular (WDL)X1 11:10 AM Sonya Loo, RNPulsesRight radial;Left radial;Left pedal;Right pedal;Left posterior tibial;Right posterior tibial 05/31/2025 11:10 AM Sonya Loo RN * RUE Neurovascular AssessmentQuestionAnswerDate of AssessmentAuthorRight Radial Pulse+ 11:25 AM Shady Hutchins RN * LUE Neurovascular AssessmentQuestionAnswerDate of AssessmentAuthorLeft Radial Pulse+ 11:25 AM Shady Hutchins RN * RLE Neurovascular AssessmentQuestionAnswerDate of AssessmentAuthorRight Posterior Tibial Pulse+ 11:25 AM Shady Hutchins RNRight Pedal Pulse+ 11:25 AM Shady Hutchins RN * LLE Neurovascular AssessmentQuestionAnswerDate of AssessmentAuthorLeft Posterior Tibial Pulse+ 11:25 AM Shady Hutchins RNLeft Pedal Pulse+ 11:25 AM Shady Hutchins RN * MusculoskeletalQuestionAnswerDate of AssessmentAuthorRUEFull movement 05/31/2025 11:10 AM Sonya Loo RNRLEFull mrrumgqa99/13/2025 11:10 AM Sonya Loo RNLUEFull /13/2025 11:10 AM Sonya Loo RN LLELimited movement;Circulation;Sensation intact;Umpicmg6305/31/2025 11:25 AM Shady Hutchins RNMusculoskeletal (WDL)X1 11:25 AM Shady Hutchins, CLIFTON * PsychosocialQuestionAnswerDate of AssessmentAuthorPsychosocial (WDL)WDL 05/31/2025 5:58 AM Polly He RN * Ganesh ScaleQuestionAnswerDate of AssessmentAuthorSensory Perceptions4 05/31/2025 5:58 AM Polly He, RUKxgsshog965/13/2025 5:58 AM Polly He, DNNecakezf779/13/2025 5:58 AM Polly He RNMobility4 05/31/2025 5:58 AM Polly He, GYNaoqfolzn378/13/2025 5:58 AM Polly He, RNFriction and Argix916 5:58 AM Polly He RNBraden Scale Rgwnm7939/13/2025 5:58 AM Polly He RN * CardiacQuestionAnswerDate of AssessmentAuthorCardiac (WDL)WDL1 5:58 AM Polly He, SMAjvxfsewcZq69/13/2025 5:58 AM Polly He RN Jugular Venous Distention (JVD)No05/31/2025 5:58 AM Polly He RN Cardiac PafvpxfkBwhw76/13/2025 5:58 AM Polly He RN * RespiratoryQuestionAnswerDate of AssessmentAuthorBilateral Breath Sounds Anterior;Clear05/31/2025 5:58 AM Polly He RNRespiratory Pattern Iwvins9605/31/2025 11:25 AM Shady Hutchins RNChest Assessment Symmetrical;Chest expansion hmbpffkkbko89/13/2025 11:25 AM Shady Hutchins RNRespiratory (WDL)X1 11:25 AM Shady Hutchins RNRespiratory FfrowdUlfveeily00/13/2025 11:25 AM Shady Hutchins RNRespiratory Depth/PqejyhAccyppo16/13/2025 11:25 AM Shady Hutchins RNBreath Sounds Bilateral breath hijfdv4405/31/2025 5:58 AM Polly He RN * RLE AssessmentQuestionAnswerDate of AssessmentAuthorRLE AssessmentWFL 05/31/2025 1:43 PM Lauren Jarvis, PT * LLE AssessmentQuestionAnswerDate of AssessmentAuthorLLE PtisqucqoyR48/13/2025 1:43 PM Lauren Jarvis, PT * ProprioceptionQuestionAnswerDate of AssessmentAuthorProprioceptionNo apparent ffbpukdc37/13/2025 3:51 PM Lorelei Pineda, OT * CognitionQuestionAnswerDate of AssessmentAuthorDeficitsFully aware of deficits 05/31/2025 3:49 PM Lorelei Pineda, VOOkvqwgetpynmeCoilpy59/13/2025 3:49 PM Lorelei Pineda, OTOrientation LevelOriented X41 3:49 PM Lorelei Pineda, OTOverall Cognitive BadyciYFB32/13/2025 3:49 PM EDT Lorelei Chino, OTArousal/AlertnessDelayed responses to ahhdita2205/31/2025 3:49 PM Lorelei Pineda, OTAttention SpanAppears fdxqbg8905/31/2025 3:49 PM Lorelei Pineda, OTMemoryAppears wcinji4605/31/2025 3:49 PM EDT Lorelei Chino, OTFollowing CommandsFollows one step commands with increased time;Follows one step commands with cfccpwuphb42/13/2025 3:49 PM EDT Lorelei Chino, OTSafety JudgmentGood awareness of safety precautions 05/31/2025 3:49 PM Lorelei Pineda OTAwareness of ErrorsGood awareness of errors made05/31/2025 3:49 PM Lorelei Pineda OTProblem Solving Assistance required to identify errors made05/31/2025 3:49 PM Lorelei Pineda OTCognition CommentsPt lethargic post op, requires increased time but able to complete all tasks required during mfxkniw2405/31/2025 3:49 PM Lorelei Flores, OT * SensationQuestionAnswerDate of AssessmentAuthorLight TouchNo apparent deficits 05/31/2025 3:51 PM Lorelei Pineda OTSensation CommentsPt denies numbness and tingling all yauppmlmvpi43/13/2025 3:51 PM Lorelei Pineda, OT * PerceptionQuestionAnswerDate of AssessmentAuthorInattention/NeglectAppears ijniit7905/31/2025 3:51 PM Lorelei Pineda, OTInitiationAppears intact 05/31/2025 3:51 PM Lorelei Pineda OTMotor PlanningAppears intact 05/31/2025 3:51 PM Lorelei Pineda OTPerseverationNot present 05/31/2025 3:51 PM Lorelei Pineda, OT * Vision - Basic AssessmentQuestionAnswerDate of AssessmentAuthorCurrent Vision Wears glasses only for wdteqgi9305/31/2025 3:51 PM Lorelei Pineda, OT * Patient's Stated Pain GoalAnswerDate of AssessmentAuthorNo pain05/31/2025 12:31 PM Sonya Loo RN * GenitourinaryQuestionAnswerDate of AssessmentAuthorGenitourinary (WDL)WDL 05/31/2025 11:25 AM Shady Hutchins RN * NeurologicalQuestionAnswerDate of AssessmentAuthorNeuro (WDL)WDL1 5:58 AM Polly He RN * Prior FunctionQuestionAnswerDate of AssessmentAuthorPrior Functional Mobility Independent without device;Independent with tosgnwil54/13/2025 3:50 PM KAMILAHT Lorelei Chino, OTLevel of IndependenceIndependent with ADLs and functional transfers;Independent with homemaking with xvjrhpbqle55/13/2025 3:50 PM Lorelei Pineda, OTReceives Help LaxmJapwvpt95/13/2025 3:50 PM Lorelei Pineda, OTADL QctzrsyeqqEttycgkfcmv39/13/2025 3:50 PM EDT Lorelei Chino, OTHomemaking MrrjdvtjghBlgpbptthab08/13/2025 3:50 PM EDT Lorelei Chino, NBBqroylxDeoav79/13/2025 3:50 PM Lorelei Pineda OT * ADLQuestionAnswerDate of AssessmentAuthorBathing IjsyisqxhpYhkrwjw66/13/2025 3:53 PM Lorelei Pineda OTBathing DeficitLeft lower leg including foot 05/31/2025 3:53 PM Lorelei Pineda OTUE Dressing AssistanceStand by 05/31/2025 3:53 PM Lorelei Pineda OTDORCAS Dressing AssistanceMinimal 05/31/2025 3:53 PM Lorelei Pineda OTLE Dressing DeficitThread LLE into tzxlisxlt82/13/2025 3:53 PM Lorelei Pineda, OTToileting Assistance with NaqopmEvsendo56/13/2025 3:53 PM Lorelei Pineda, OT * Activity ToleranceQuestionAnswerDate of AssessmentAuthorStage II (METs 1.4- 2.0) - Igwmipw07-74 mins05/31/2025 3:51 PM Lorelei Pineda OTEndurance Stage II05/31/2025 3:51 PM Lorelei Pineda OTActivity Tolerance CommentsPt able to tolerate all functional tasks and ambulation/transfers this session, No dizziness reported. mild lethargy post op. Vitals WNL thoughout 05/31/2025 3:51 PM Lorelei Pineda OT * RUE AssessmentQuestionAnswerDate of AssessmentAuthorRUE AssessmentWFL 05/31/2025 3:52 PM Lorelei Pineda OT * LUE AssessmentQuestionAnswerDate of AssessmentAuthorLUE AssessmentWFL 05/31/2025 3:52 PM Lorelei Pineda, OT * PrecautionsQuestionAnswerDate of AssessmentAuthorMedical PrecautionsTKA;fall risk;IV;telemetry;nerve block05/31/2025 3:49 PM Lorelei Pineda, OT Post-Surgical PrecautionsL TKA05/31/2025 3:49 PM Lorelei Pineda OTLE Weight Bearing StatusLeft;WBAT1 3:49 PM Lorelei Pineda OT * PlanQuestionAnswerDate of AssessmentAuthorPT PlanNo skilled PT05/31/2025 1:51 PM Lauren Jarvis PTNo Skilled PTSafe to return home05/31/2025 1:51 PM EDT Lauren Rios, PTTreatment/InterventionsLE strengthening/ROM;Functional transfer training;Endurance training;Patient/family training;Equipment eval/education;Bed mobility;Gait training;Balance yqyoeldy99/13/2025 1:51 PM Lauren Jarvis PTPT FrequencyOne time visit05/31/2025 1:51 PM Lauren Jarvis PTPT - Discharge Recommendations GaqqtpNgg76/13/2025 1:51 PM EDT Lauren Rios, PTPT Discharge RecommendationsPatient is able to return to prior living environment;Outpatient PT05/31/2025 1:51 PM Lauren Jarvis, PT * Hand FunctionQuestionAnswerDate of AssessmentAuthorGross GraspFunctional 05/31/2025 3:52 PM Lorelei Pineda OKYgvdevhgmqkuPmugorcwrw07/13/2025 3:52 PM Lorelei Pineda, OT * PlanQuestionAnswerDate of AssessmentAuthorLevel of assist1 wnfzbl9005/31/2025 4:00 PM Lorelei Pineda OTEquipment Tixlrjdllkoknyj34/13/2025 4:00 PM Lorelei Pineda OTTreatment InterventionsADL retraining;Functional transfer training;Endurance training;Patient/family training;Equipment leroy luation/education;Neuromuscular zatqgokcren61/13/2025 4:00 PM Lorelei Pineda OTOT FrequencyOne time visit05/31/2025 4:00 PM Lorelei Pineda OTOT - Discharge Recommendations HukeigTen38/13/2025 4:00 PM KAMILAHT Lorelei Chino OTOT PlanSkilled OT05/31/2025 4:00 PM Lorelei Pineda OTOT Discharge RecommendationsPatient is able to return to prior living javorfjwrto59/13/2025 4:00 PM Lorelei Pineda OT * AM-PAC 6 ClicksQuestionAnswerDate of AssessmentAuthorTotal Score OT AMPAC21 05/31/2025 3:13 PM Lorelei Pineda, PÉREZoileting, which includes using the toilet,bedpan,or urinal? 3:13 PM Lorelei Pineda, OT Eating meals? 3:13 PM Lorelei Pineda, JOHNYBathing(Including washing,rinsing,drying)? 3:13 PM Loreeli Pineda, PÉREZaking care of personal grooming such as brushing teeth? 3:13 PM EDT Lorelei Chino, JOHNYPutting on and taking off regular lower body clothing?3 05/31/2025 3:13 PM Lorelei Pineda, JOHNYPutting on and taking off regular upper body clothing? 3:13 PM Lorelei Pineda OT * QuestionAnswerDate of WrhgqhqzraXdjmphVMHK27598/13/2025 9:52 AM Marisabel, Device In * OT Last VisitQuestionAnswerDate of AssessmentAuthorOT Received [id number] 05/31/2025 3:12 PM Lorelei Pineda OT * PT AssessmentQuestionAnswerDate of AssessmentAuthorPT AssessmentPt is 54 y.o female presenting with the above impairments s/p L TKA. Pt able to tolerate all functional mobility tasks with CGA and minimal verbal cues for safety and technique. Ambulates with good gait mechanics, no knee buckling noted. Education on post-op precautions provided with good carryoverduring session. Pt demos ability to return home POD0 with all necessary DME and 24 hour support. PTto sign off at this time.05/31/2025 1:48 PM Lauren Jarvis, PTPT Education/CommentsPT POC. Post-op precautions. WBAT LLE1 1:48 PM EDT Lauren Rios, PTStrengthsAbility to acquire knowledge;Support of extended family/friends;Housing layout;Access to adaptive/assistive caujqzfx28/13/2025 1:48 PM Lauren Jarvis, PXLkphdnbzyLmcx94/13/2025 1:48 PM Lauren Jarvis, PTImpairmentsDecreased strength;Decreased range of motion;Decreased endurance;Impaired balance;Decreased mobility;Decreased coordination;Decreased skin integrity;Orthopedic restrictions;Pain05/31/2025 1:48 PM Lauren Jarvis, PTMedical Staff Made MlcxfDgu18/13/2025 1:48 PM Lauren Jarvis, PT Evaluation/Treatment TolerancePatient tolerated treatment well05/31/2025 1:48 PM Lauren Jarvis, PT * Static Standing BalanceQuestionAnswerDate of AssessmentAuthorStatic Standing- Balance SupportRight upper extremity supported;Left upper extremity supported;With device;No upper extremity /13/2025 3:52 PM Lorelei Flores OTStatic Standing-Level of AssistanceContact guard 05/31/2025 3:52 PM Lorelei Pineda OTStatic Standing-Comment/Number of Minutespt able to briefly utilize sixto UEs to adjust bottoms upon initially sitting.05/31/2025 3:52 PM Lorelei Pineda OT * Dynamic Standing BalanceQuestionAnswerDate of AssessmentAuthorDynamic Standing Balance-Level of AssistanceContact guard05/31/2025 3:52 PM Lorelei Pineda OTDynamic Standing-CommentsCGA for safety s/p OR05/31/2025 3:52 PM Lorelei Pineda OTDynamic Standing-Balance SupportRight upper extremity supported;Left upper extremity supported;With ukqvcc3405/31/2025 3:52 PM Lorelei Pineda OTDynamic Standing-BalanceForward lean;Reaching for zfhnbze9705/31/2025 3:52 PM Lorelei Pineda OT * Dynamic Sitting BalanceQuestionAnswerDate of AssessmentAuthorDynamic Sitting Balance-Level of AssistanceClose frpwnbqafzs66/13/2025 3:52 PM Lorelei Pineda OTDynamic Sitting-CommentsPt able to maintain EOB sit while completing LBD tasks with OT05/31/2025 1:44 PM Lauren Jarvis PTDjavi Sitting-Balance SupportFeet rorjyqetp90/13/2025 3:52 PM Lorelei Pineda OTDynamic Sitting-BalanceForward lean;Reaching for objects;Reaching across hceqbuv4505/31/2025 3:52 PM Lorelei Pineda, OT * AmbulationQuestionAnswerDate of QmnxspdbmfGpyxdgKitjewtvxaGko79/13/2025 1:46 PM Lauren Jarvis, PT * StairsQuestionAnswerDate of DydrkkhdjiErbdzxYjatbaAt97/13/2025 1:48 PM EDT Lauren Rios, PT * CoordinationQuestionAnswerDate of AssessmentAuthorMovements are Fluid and WlfbraifrgrHiy86/13/2025 3:51 PM Lorelei Pineda, JOHNYCoordination and Movement DescriptionMildly impaired to LLE post-op.05/31/2025 1:40 PM EDT Lauren Rios, PT * GeneralQuestionAnswerDate of AssessmentAuthorSubjective I'm tired right now. RN ok for pt to be seen, seen in PACU s/p L TKA. Pt agreeable to session. Pt completed functional tasks and functional ambulation. Pt planning to d/c home on this day and reports she will have assist at home as needed from boyfriend and friend. Pt returned to semi-fowlers with call light and needs in reach. RN aware05/31/2025 3:13 PM Lorelei Pineda OTOT DiagnosisDecreased indepednence in functional tasks s/p L TKA05/31/2025 3:13 PM Lorelei Pineda OTPatient Msneunv15vbP seen in clinic with c/o L knee pain, severe tricompartmental OA. Pt with instability, deformity of L knee X5-6 years. Pt failed conservative tx. Seen POD 0, L TKA on 05/31/2510 3:13 PM EDT Lorelei Chino, OT * Surface 1AnswerDate of AssessmentAuthorLevel tile1 1:46 PM EDT Lauren Rios, PT * Device 1AnswerDate of AssessmentAuthorRolling ustbqk7705/31/2025 1:46 PM EDT Lauren Rios, PT * Assistance 1AnswerDate of AssessmentAuthorContact guard;Minimal verbal cues 05/31/2025 1:46 PM Lauren Jarvis, PT * Quality of Gait 1AnswerDate of AssessmentAuthorPt able to tolerate amb with RW and CGA throughout. Demos step-to pattern with RW. Able to demo adequate weight bearing through LLE without any buckling noted.05/31/2025 1:46 PM KAMILAHT Lauren Rios, PT * Comments/Distance (ft) 1AnswerDate of VnpsgbemyiQmigjy10 ft05/31/2025 1:46 PM Lauren Jarvis, PT * GeneralQuestionAnswerDate of AssessmentAuthorSubjective I'm ready for a nap. Session okay per RN. Pt seen and evaluated POD0 in PACU. Pt supine in stretch er upon arrival, agreeable to PT session. Performed bed mobility, transfers, and amb this date. Returned to supine in stretcher with PT needs met prior to exit. RN aware of pt performance.05/31/2025 1:34 PM Lauren Jarvis PTPT DiagnosisDecreased functional mobility s/p L TKA05/31/2025 1:34 PM Lauren Jarvis PTPatient SummaryPt is 54 y.o female presenting to [facility] with c/o L knee pain 2/2 OA. pt is s/p L TKA. 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.05/31/2025 1:34 PM Lauren Jarvis, PT * Bed MobilityQuestionAnswerDate of AssessmentAuthorBed TztcahlnQen37/13/2025 3:54 PM Lorelei Pineda, OT * Bed Mobility 1QuestionAnswerDate of AssessmentAuthorBed Mobility Comments 1CGA for LLE management into/out of bed05/31/2025 3:54 PM Lorelei Pineda OTBed Mobility From 1Gkvtrs4105/31/2025 3:54 PM Lorelei Pineda OTBed Mobility Type 1To and from05/31/2025 3:54 PM Lorelei Pineda OTBed Mobility to 1Short sit05/31/2025 3:54 PM Lorelei Pineda OTLevel of Assistance 1Contact guard05/31/2025 3:54 PM Lorelei Pineda OT * TransfersQuestionAnswerDate of AssessmentAuthorAmbulation commentsPt completed functional ambulation in PACU, CGA with use of RW. no buckling, no LOB. pt with no reported dizziness lyphrmsqa03/13/2025 3:54 PM Lorelei Pineda OTTransferYes1 3:54 PM Lorelei Pineda, OT * Transfer 1QuestionAnswerDate of AssessmentAuthorTransfer Device 1rolling wqmzcl8805/31/2025 3:54 PM Lorelei Pineda OTTrials/Comments 1Verbal cues for hand placement and technique when using RW05/31/2025 3:54 PM Lorelei Flores OTTransfer From 1Bed;Sit05/31/2025 3:54 PM Lorelei Pineda OTTransfer Type 1To and from05/31/2025 3:54 PM Lorelei Pineda OTTransfer to 7Twlny8405/31/2025 3:54 PM Lorelei Pineda, OT Technique 1Sit to stand;Stand to sit05/31/2025 3:54 PM Lorelei Pineda OTTransfer Level of Assistance 1Contact guard;Minimal verbal cues05/31/2025 3:54 PM Lorelei Pineda OT * Static Sitting BalanceQuestionAnswerDate of AssessmentAuthorStatic Sitting- Balance SupportUnilateral upper extremity supported;No upper extremity supported;Feet wacuezwtv97/13/2025 3:52 PM Lorelei Pineda OTStatic Sitting-Level of AssistanceClose zcjvvlvahfr91/13/2025 3:52 PM Lorelei Pineda OT * Home LivingQuestionAnswerDate of AssessmentAuthorHome AccessRamped entrance 05/31/2025 3:49 PM Lorelei Pineda OTType of HomeMobile home05/31/2025 3:49 PM Lorelei Pineda OTHome LayoutOne level05/31/2025 3:49 PM Lorelei Flores OTBathroom Shower/TubTub/shower unit05/31/2025 3:49 PM Lorelei Pineda OTBathroom ToiletHandicapped qcfvro9405/31/2025 3:49 PM Lorelei Pineda OTBathroom EquipmentGrab bars in shower;Tub transfer bench;Hand-held shower;Raised toilet seat with rails05/31/2025 3:49 PM Lorelei Flores OTHome Adaptive EquipmentWalker rolling;Rollator;Cane 05/31/2025 3:49 PM Lorelei Pineda OTLives WithSignificant other 05/31/2025 3:49 PM Lorelei Pineda OT * OT AssessmentQuestionAnswerDate of AssessmentAuthorOT Assessment/FLAVIO SummaryPt seen s/p L TKA, POD 0. Pt with general lethargy s/p OR. Pt completed functional tasks and ambulation, general debility post surgery. L knee pain impacting independence when completing basic ADLs. Pt will have assist at home as needed. Pt provided education re: surgical precautions, WB status, ADL modifications, d/c planning, home safety, verbalizes understanding of all education. Pt cleared tod/c home from PACU on this day with 24hr supervision 05/31/2025 3:55 PM Lorelei Pineda OTOT Education/CommentsPurpose of session, safety, fall prevention, surgical precautions, WB status, ADL modifications. Handout ylanoqpo40/13/2025 3:55 PM Lorelei Pineda OT BzwlbvhebIwkz07/13/2025 3:55 PM Lorelei Pineda OTOT Impairments Decreased ADL status;Decreased safe judgment during ADL;Decreased endurance;Decreased IADLs;Decreased trunk control for functional activities;Decreased functional kdzatdfw68/13/2025 3:55 PM Lorelei Pineda OTEvaluation/Treatment TolerancePatient tolerated treatment well 05/31/2025 3:55 PM Lorelei Pineda OTMedical Staff Made AwareYes 05/31/2025 3:55 PM Lorelei Pineda OT * PT Last VisitQuestionAnswerDate of AssessmentAuthorPT Received [id number] 05/31/2025 1:34 PM Lauren Jarvis, PT * Pain AssessmentQuestionAnswerDate of AssessmentAuthorPain LocationKn 05/31/2025 3:49 PM Lorelei Pineda OTPain IvavmtrmfdxIshf56/13/2025 3:49 PM Lorelei Pineda OTPain InterventionsEmotional support;Relaxation technique;Medication (See MAR)05/31/2025 10:32 AM Sonya Loo RNResponse to Interventionsno irxwekytodh72/13/2025 10:32 AM Sonya Alexander RNWong-Eduardo FACES Pain Feqiep718/13/2025 9:56 AM Sonya Loo RNPain TypeAcute pain;Surgical pain05/31/2025 3:49 PM Lorelei Pineda OTPain Emigl026 3:49 PM Lorelei Pineda OTPain Assessment0-101 3:49 PM Lorelei Pineda OT * IntegumentaryQuestionAnswerDate of AssessmentAuthorIntegumentary (WDL)WDL 05/31/2025 5:58 AM Polly He RN * [employer] Suicide Severity Rating ScaleQuestionAnswerDate of AssessmentAuthor1. Have you wished you were or wished you could go to sleep and not wake up? No05/31/2025 6:01 AM Polly He RN2. Have you actually had any thoughts of killing yourself?No05/31/2025 6:01 AM Polly He RN6. Have you ever done anything, started to do anything, or prepared to do anything to end your life?No05/31/2025 6:01 AM Polly He RN * Patient BehaviorsAnswerDate of VlxsjtktzeXhcqljXuiy17/13/2025 12:31 PM EDT Sonya Hernandez RN * Risk of SuicideAnswerDate of AssessmentAuthorNo Risk05/31/2025 6:01 AM EDT Polly Hoover RN * QuestionAnswerDate of AssessmentAuthorSkin ColorAppropriate for race05/31/2025 11:10 AM Sonya Loo RNSkin Condition/TempWarm;Dry05/31/2025 11:10 AM Sonya Loo RNSkin LgqtqrxbyZqfogy49/13/2025 11:10 AM Sonya Loo RN * Modified AldreteQuestionAnswerDate of FpmpcmqsusXtvamvTautqvok982/13/2025 11:25 AM Shady Hutchins RNRespiration 11:25 AM Shady Hutchins RNCirculation21 11:25 AM Shady Hutchins RNConsciousness 11:25 AM Shady Hutchins RNOxygen Cwwvdojauz809/13/2025 11:25 AM Shady Hutchins RNModified Adeline Xmvkm563 11:25 AM Shady Hutchins RN documented as of this encounter Mental Status * Modified AldreteQuestionAnswerEntry KoseAkapppIudeommd337/13/2025 11:25 AM EDT Shady Monsalve RNRespiration21 11:25 AM EDShady Pinto RN Rawzxofgobg896/13/2025 11:25 AM EDShady Pinto RNConsciousness21 11:25 AM EDShady Pinto RNOxygen Crkaaqtxuu469 11:25 AM EDT Shady Monsalve RNModified Adeline Pnhzl026 11:25 AM EDShady Pinto RN documented in this encounter Progress Notes * [facility] - 05/27/2025 2:51 PM EDT Pt having left knee surgery on 05/31. Pt wants to follow up with outpatient therapy services in [place], [place]. Pt requested to follow up with [facility]. ELDON faxed referral to [facility] in [place], [place]. * [facility] - 05/27/2025 2:51 PM EDT ELDON followed up with [facility]. VALERIE has the pt's referral but hasn't contacted the pt yet. The first available appointment they have is on 06/09. VALERIE will follow up with the pt for scheduling. * [facility] - 05/27/2025 2:51 PM EDT Pt decided that she wants home health physical therapy instead of outpatient therapy. ELDON submitted referrals in [facility]. [facility] accept the pt's home health referral. documented in this encounter Plan of Treatment DateTypeDepartmentCare Team (Latest Contact Info)Rcojxlmdyur16/29/2025 11:00 AM EDTAppointment [facility] [address] [place] [address] [place] [phone] 06/16/2025 11:30 AM EDTOffice Visit [facility] [address] [place] [address] [place] [phone] Emiliana Abad MD [address] [place] [address] [place] [phone] documented as of this encounter Visit Diagnoses Not on filedocumented in this encounter Additional Health Concerns InfectionOnset DateLast IndicatedResolved VgfbBTZT48/08/534096documented as of this encounter Care Teams Team MemberRelationshipSpecialtyStart DateEnd Date Robert Hathaway DO [address], [facility] [place] [address] PCP - GeneralFamily Uvfmbdkb96/29/24 Светлана Walters LISW-S PA Social WorkerSocial Oeruhpzs42/9/2510documented as of this encounter
--- OUTSIDE RECORDS SUMMARY | 2025-06-15 19:52 | XMS_ITS | Patient Health Record ---
Author Organization [facility] [place] Address [address] [place] [address] Care Team Providers Care Tea Bag Packer Name Role Phone Pratibha Vides MD Primary Care Provider Unavaila ble Reason For Referral No Information Plan Of Treatment No Information Insurance Providers Payer Name Payer Address Payer Phone Subscriber Number Group Number Insured Name Patient Relationship to Insured Coverage Start Date Coverage End Date MMO [employer] [address] [place] [address] [id number] Marilee Meza - patient is the insured
--- OUTSIDE RECORDS SUMMARY | 2025-06-15 19:52 | XMS_ITS | Clinical Summary ---
Author Organization [facility] Address [address] [place] [address] Phone Care Team Providers Care Flight Operations Inspector Name Role Phone Unavailable Primary Care Provider Unavailabl e Social History Tobacco UseTypesPacks/DayYears UsedDateSmoking Tobacco: Never Assessed CommentsUnknownSex and Gender InformationValueDate RecordedSex Assigned at Not on fileLegal ZhtZnffhn84/25/2022 8:35 PM ESTGender IdentityNot on fileSexual OrientationNot on file Plan of Treatment Health MaintenanceDue DateLast DoneCommentsCT Dfdwbdskgzhx1970Colonoscopy 1970Colorectal Cancer Ngxrdouyi1970FIT-DNA (Cologuard)1970FIT 1970HIV Cjamvtqmz1970Lipid Panel1970 1714Xxftwgyxdfpfi1970 Yearly Adult Ubieteqv1970MMR Vaccines (1 of 1 - Standard series)1971 Hepatitis C Vwzzvzawm80/10/1988Hepatitis B Vaccines (1 of 3 - 19+ 3-dose series) 1989Cervical Cancer Qscwzmjzq18/10/1991HPV/Idmqut4107/28/1991Pap Smear 1991DTaP/Tdap/Td Vaccines (1 - Tdap)07/28/19923480Nnofxyldm21/10/2010 Pneumococcal Vaccine (1 of 1 - PCV)2020Zoster Vaccines (1 of 2)2020 Influenza Vaccine (#1)5COVID-19 Vaccine (1 - 2024- season)2025 HIB VaccinesAged OutNo longer eligible based on patient's age to complete this topicHPV VaccinesAged OutNo longer eligible based on patient's age to complete this topicHepatitis A VaccinesAged OutNo longer eligible based on patient's age to complete this topicIPV VaccinesAged OutNo longer eligible based on patient's age to complete this topicMeningococcal VaccineAged OutNo longer eligible based on patient's age to complete this topicRotavirus VaccinesAged OutNo longer eligible based on patient's age to complete this topic
--- OUTSIDE RECORDS SUMMARY | 2025-06-15 19:52 | XMS_ITS | Clinical Summary ---
Author Organization [facility] Address [address], [address] [place] [address] Care Team Providers Care Ip Architect Name Role Phone Robert Hathaway DO Primary Care Provider Allergies Active AllergyReactionsCriticalityNoted DateCommentsAmoxicillin-Pot Clavulanate Nausea And JqgkmlwzIvc63/13/2011Moxifloxacin Hcl In Nacl11/02/2011Verapamil Nausea And RyxitityRzj57/20/1194RhsojsxFwzpw89/13/5094Grjstzidqsrvk04/29/2012 Causes whole body to burn QffyzaitfhtGmpkdcrtkjxaYrm52/13/7968Xvjrqhpsuzuba39/20/2013Fish Protein- Containing Drug Oyoucqwu43/16/2012Fluticasone-SalmeterolPalpitationsLow 10/08/2012Ziprasidone HzbozqcyrqfzpXrxkjxvltygkPoc29/13/2011Ketorolac TromethamineOther (See Comments)06/28/2011 Severe stomach cramping MethadoneNausea And MguygaslAbh08/13/2011Ibuprofen MicronizedNausea And Vomiting Low11/02/20118704Zgvqbbwsufp78/16/7574IemquhhbuhEvfijpmemlyhOay47/20/2013tomoxetine YetHaybycnvayntAvw75/13/2011dhesive Tape11/02/2011TopamaxNausea And VomitingLow 05/19/20124310BytrbxnumKnfiaupdakzmOda90/13/2011upropion HclPalpitationsLow 05/01/2011 Medications MedicationSigDispense QuantityRefillsLast FilledStart DateEnd DateStatus aripiprazole (ABILIFY) 15 MG tablet Take 10 mg by mouth daily.Active cetirizine (ZYRTEC) 10 MG tablet Take 1 tablet by mouth dailyActive albuterol (PROVENTIL HFA;VENTOLIN HFA) 108 (90 BASE) MCG/ACT inhaler Inhale 2 puffs into the lungs every 4 hours as neededActive ClomiPRAMINE HCl (ANAFRANIL PO) Take 100 mg by mouth daily.Active hydrochlorothiazide (HYDRODIURIL) 25 MG tablet 1 tablet daily09/23/2012ctive promethazine (PHENERGAN) 25 MG tablet Take 1 tablet by mouth every 6 hours as defzrx1009/02/2012ctive simvastatin (ZOCOR) 40 MG tablet 1 tablet txsvpcw8409/22/2012ctive docusate sodium (COLACE) 100 MG capsule Take 1 capsule by mouth 3 times daily as neededActive ALPRAZolam (XANAX) 0.5 MG tablet Take 1 tablet by mouth 2 times daily.Active budesonide-formoterol (SYMBICORT) 160-4.5 MCG/ACT AERO Inhale 1 puff into the lungs dailyActive omeprazole (PRILOSEC) 20 MG capsule Take 1 capsule by mouth dailyActive pramipexole (MIRAPEX) 0.125 MG tablet Take 1 tablet by mouth 2 times dailyActive SUMAtriptan Succinate (IMITREX PO) Take by mouth as needed.Active metoprolol (LOPRESSOR) 100 MG tablet Take 1 tablet by mouth 2 times dailyActive oxyCODONE-acetaminophen (PERCOCET) 10-325 MG per tablet Indications:Headache(784.0),Neck pain,Migraine, unspecified, without mention of intractable migraine without mention of status migrainosus,Leg pain, bilateral, Chronic back pain,Lumbago,Depression,Neck pain, acute,Pain in limb,Anxiety state, unspecified,Pain in limbTake 1 tablet by mouth 5 times daily for 30 days. Fill prescription on or after 06/20/2014 150 tablet ctive oxyCODONE-acetaminophen (PERCOCET) 10-325 MG per tablet Indications:Headache(784.0),Neck pain,Migraine, unspecified, without mention of intractable migraine without mention of status migrainosus,Leg pain, bilateral, Chronic back pain,Lumbago,Depression,Neck pain, acute,Pain in limb,Anxiety state, unspecified,Pain in limbTake 1 tablet by mouth 5 times daily for 30 days. Fill prescription on or after 05/22/2014 150 tablet ctive oxyCODONE-acetaminophen (PERCOCET) 5-325 MG per tablet Take 1 tablet by mouth every 4 hours as needed for Pain.Active meclizine (ANTIVERT) 25 MG tablet Take 1 tablet by mouth 3 times daily as neededActive Roflumilast (DALIRESP) 500 MCG tablet Take 1 tablet by mouth dailyActive loperamide (IMODIUM) 2 MG capsule Take 1 capsule by mouth 4 times daily as needed for DiarrheaActive ALENDRONATE SODIUM PO Take 70 mg by mouth11/06/2023ctive atorvastatin (LIPITOR) 40 MG tablet Take 1 tablet by mouth daily04/28/2018Active calcium carbonate 1500 (600 Ca) MG TABS tablet Take 1,500 mg by mouth 2 times daily11/06/2022ctive Baclofen (LIORESAL) 5 MG tablet 12/02/2023ctive Active Problems ProblemNoted DateDiagnosed DateLumbosacral spondylosis without myelopathy 06/24/2023Lumbar degenerative disc hoakcnt7606/24/2023Myofascial pain syndrome 06/24/2023Neck pain11/08/2012Intractable fgozovbg71/20/3425Vdnzacoo87/20/2013 Xmueyzst05/02/2012Leg pain, qcwouscyl30/02/2012Neck pain, acute09/20/2011Lumbago 05/01/2011Pain in limb05/01/2011nxiety state05/01/2011Depressive disorder, not elsewhere jhomyahysg33/13/2011Chronic back painFibromyalgiaBipolar disorder OsteoarthritisBilateral low back pain with sciatica Resolved Problems ProblemNoted DateDiagnosed DateResolved GhmyDrvvuzdvhr06 Family History Medical HistoryRelationNameCommentsAlcohol AbuseFatherCancerMaternal Grandmother COPDMotherCancerMotherDiabetesMotherHeart AttackMotherRelationNameStatusComments FatherDeceasedMaternal GrandmotherMotherDeceased Social History Tobacco UseTypesPacks/DayYears UsedDateSmoking Tobacco: Every TglQmwqnrmjrf937 Started: 11/08/1998; Last attempted to quit: 11/08/2013Smokeless Tobacco: Never Alcohol UseStandard Drinks/WeekCommentsNo0 (1 standard drink = 0.6 oz pure alcohol)CommentsNoSex and Gender InformationValueDate RecordedSex Assigned at BirthNot on fileLegal WacKirevg78/10/2013 3:35 PM ESTGender Identity Not on fileSexual OrientationNot on fileOccupationIndustryJob Start DateJob End DateDisabilityNot on fileNot on fileNot on file Last Filed Vital Signs Vital SignReadingTime TakenCommentsBlood Jbdziuwa361/7607 12:51 PM EDT Pzrty410303/04/2024 12:51 PM FSHVensijbekcs84.3 ??C (97.3 ??F)06/24/2023 12:57 PM ESTRespiratory Otwf153103/04/2024 12:51 PM EDTOxygen Saturation5%06/23/2015 1:52 PM ESTInhaled Oxygen Concentration--Rkjoma34.3 kg (166 lb)03/04/2024 12:51 PM VBPSrnspo304.6 cm (5' 4 )03/04/2024 12:51 PM EDTBody Mass Index28.4907 12:51 PM EDT Plan of Treatment Health MaintenanceDue DateLast SnbeGngvsdexSpsujo71/10/1980Depression Monitoring 1982HIV zaaqwz2307/28/1985Hepatitis C ujcmfp4907/28/1988DTaP/Tdap/Td vaccine (1 - Tdap)1989Hepatitis B vaccine (1 of 3 - 19+ 3-dose series)1989 Pneumococcal 50+ years Vaccine (1 of 2 - PCV)07/28/19895177Phxwyevhzyd76/10/2015 Colorectal Cancer Jhrgvt8207/28/2015FIT/FOBT: Average risk2015Fecal-DNA (Cologuard): Average risk2015Sigmoidoscopy/CT kmbgsumepagx07/10/2015 Shingles vaccine (1 of 2)2020Breast cancer qclydu91/23/694742/, 08/29/2022Flu vaccine (#1)/01/2023, 04/15/2020COVID-19 Vaccine (2 - season)Hepatitis A vaccineAged Out06/02/2019, 11/21/2018No longer eligible based on patient's age to complete this topicHib vaccineAged OutNo longer eligible based on patient's age to complete this topic Meningococcal (ACWY) vaccineAged OutNo longer eligible based on patient's age to complete this topicMeningococcal B vaccineAged OutNo longer eligible based on patient's age to complete this topicPolio vaccineAged OutNo longer eligible based on patient's age to complete this topic Insurance Care Teams Team MemberRelationshipSpecialtyStart DateEnd Date Robert Hathaway DO [address] [place] [phone] [facility]
--- OUTSIDE RECORDS SUMMARY | 2025-06-15 19:52 | XMS_ITS | Encounter Summary ---
Author Organization [facility] Address [id number] [address] [place] [address] Care Team Providers Care Housing Project Manager Name Role Phone Robert Hathaway Primary Care Provider + [phone] Encounter Details DateTypeDepartmentCare Team (Latest Contact Info)Tacyckifrmm90/24/2025Orders Only [facility] [address] [place] [phone] Ref Prov, [place] [address] Social History Tobacco UseTypesPacks/DayYears UsedDateSmoking Tobacco: FormerCigarettes0.836.5 04/15/1988 - 02/17/2025Passive Smoke Exposure: CurrentSmokeless Tobacco: Never Alcohol UseStandard Drinks/WeekCommentsNot Currently0 (1 standard drink = 0.6 oz pure alcohol)[facility] UtilitiesAnswerDate RecordedIn the past 12 months has the [employer], gas, oil, or water Mappyfriends threatened to shut off services in your home?No07/08/2023Social Connection and Isolation PanelAnswerDate RecordedIn a typical week, how many times do you talk on the phone with family, friends, or neighbors?More than three times a week01/24/2023How often do you get together with friends or relatives?More than three times a week01/24/2023How often do you attend congregation or confucianism services?Never01/24/2023o you belong to any clubs or organizations such as congregation groups, unions, fraternal or athletic groups, or school groups?No01/24/2023How often do you attend meetings of the clubs or organizations you belong to?Never01/24/2023re you , , , , never , or living with a partner?Pgprwbkgh27/08/2023UDIT-C AnswerDate RecordedQ1: How often do you have a drink containing alcohol?Monthly or less01/24/2023Q2: How many drinks containing alcohol do you have on a typical day when you are drinking?3 or Q3: How often do you have six or more drinks on one occasion?Never01/24/2023Overall Financial Resource Strain (CARDIA) AnswerDate RecordedHow hard is it for you to pay for the very basics like food, housing, medical care, and heating?Patient mbneifit91/01/2025PHQ-2AnswerDate RecordedTotal Bxdqr602Finog[facility] [place] of Occupational Health - Occupational Stress QuestionnaireAnswerDate RecordedDo you feel stress - tense, restless, nervous, or anxious, or unable to sleep at night because yourmind is troubled all the time - these days?To some myvnse0301/24/2023Exercise Vital Sign AnswerDate RecordedOn average, how many days per week do you engage in moderate to strenuous exercise (like a brisk walk)?4 days01/24/2023On average, how many minutes do you engage in exercise at this level?10 min01/24/2023RAPARE - TransportationAnswerDate RecordedIn the past 12 months, has lack of transportation kept you from medical appointments or from getting medications? Patient qsgeyxrq23/01/2025In the past 12 months, has lack of transportation kept you from meetings, work, or from getting things needed for daily living?Patient enosvxzd22/01/2025Housing InstabilityAnswerDate RecordedAre you worried or concerned that in the next two months you may not have stable housing that you own, rent or stay in as a part of a household?Patient Erzwhydv38/01/2025 ChildcareAnswerDate RecordedDo problems getting child development specialist make it difficult for you to work or study?No01/24/2023EmploymentAnswerDate RecordedDo you need help finding a local career center and/or a training program?No01/24/2023Hunger ScreeningAnswerDate RecordedWithin the past 12 months we worried whether our food would run out before we got money to buy more.Patient Ppaicxhp19/02/2025 Within the past 12 months the food we bought just didn't last and we didn't have money to get more.Patient Atklthsg66/02/2025Purpose - LifeAnswerDate RecordedI have a purpose and direction in my life.Strongly Agree01/24/2023Comments NoSex and Gender InformationValueDate RecordedSex Assigned at BirthNot on file Legal LzlMsxzoi00/06/2015 11:58 AM EDTGender IdentityNot on fileSexual OrientationNot on filedocumented as of this encounter Plan of Treatment DateTypeDepartmentCare Team (Latest Contact Info)Yldxlyfkakm77/30/2025 1:30 PM EDTOffice Visit [facility] [address] [place] [address] Robert Hathaway DO [address], [place] [address] documented as of this encounter Procedures Procedure NamePriorityDate/TimeAssociated DiagnosisCommentsXR CHEST 1 VWRoutine 06/11/2025 7:26 AM EDTdocumented in this encounter Results * X-ray chest 1 view (06/11/2025 7:26 AM EDT)Anatomical RegionLateralityModality Body, ChestN/AComputed Radiography Narrative Authorizing ProviderResult TypeResult StatusNot In System Ref ProvIMG DIAGNOSTIC IMAGING ORDERABLESFinal Result documented in this encounter Visit Diagnoses Not on filedocumented in this encounter Additional Health Concerns AssessmentNoted TimePHQ-9 Depression Total Score: 1:22 PM EDTA Body Mass Index follow-up plan has been documented for the bdphkyv5307/10/2023 3:34 PM ESTdocumented as of this encounter Care Teams Team MemberRelationshipSpecialtyStart DateEnd Date Robert Hathaway DO [address], [place] [address] PCP - GeneralFamily Medicine05/10/22documented as of this encounter
--- OUTSIDE RECORDS SUMMARY | 2025-06-15 19:52 | XMS_ITS | Clinical Summary ---
Author Organization [facility] Address [address] [place] [address] Care Team Providers Care Material Disposition Inspector Name Role Phone Robert Hathaway MD Primary Care Provider [phone] Allergies Active AllergyReactionsCriticalityNoted BkcxMosnjsivZrko13/10/2024 Facial numbness/tongue numbness Ftwwrjyjaibjl39/20/2013 Other Reaction(s): Abnormal Behavior, Mental Status Change, other, Vomiting hallucinate Amoxicillin-Pot ClavulanateNausea And VpyliiraLur19/13/2011 Other Reaction(s): GI Disturbance, Unknown, Vomiting FinpzeeasuoIbrpjepipdtiWme55/12/2019 Other Reaction(s): Other (See Comments), Unknown (atomoxetine) Atomoxetine ZfkQyvhrmavmndnXyjbtm74/13/2011 Other Reaction(s): GI Disturbance, Other: See Comments palpitations Aloe-Sodium Dabvzadd44/10/2024 Facial numbness/tongue numbness NhfgnfybmPqaieexylraaBimbqy61/13/2011 Other Reaction(s): GI Disturbance, other, Other: See Comments palpitations CodeineHives,JazsRbzp12/13/2011 Other Reaction(s): Other, Unknown Xuuxfxbuxscmv94/29/2012 Other Reaction(s): Hot flashes, other, Unknown Causes whole body to burn (dexamethasone) WqxkhazoxdfYkgsfotwcrtyZyjedi15/13/2011 Other Reaction(s): GI Disturbance, Other, Other: See Comments, Unknown palpitations Dmeswfdfpu87/12/2019Duloxetine Hcl02/25/2023 Other Reaction(s): Unknown Eicosapentaenoic Acid03/13/2017Fish AllergyHives,SubrFzeh73/16/2012Fish Protein- Containing Drug Iydakmdi76/16/7572Qpxsjmwcxlc00/19/2014 Other Reaction(s): other, Unknown Fluticasone-SalmeterolItching,Palpitations,FuidRlj2210/08/2012 Other Reaction(s): Unknown HetyytlxugAwuzfx89/12/2019 Other Reaction(s): Unknown IbuprofenNausea And Vomiting,GwawStl6811/02/2011 Other Reaction(s): GI Disturbance, Unknown Iodinated Contrast ZwdxgKnfruwzxsniJfsj04/19/2024 Patient started to have SOB and felt faint Wgfibeqbn82/13/2015 Other Reaction(s): Other: See Comments Other reaction(s): Other: See Comments Abdominal pain Abdominal pain Ketorolac OqnkwjaaspseTdmrm37/10/2011 Severe stomach cramping Yvkhsskzu71/12/2019 Other Reaction(s): Unknown MethadoneNausea And WqrprvenDmy38/13/2011 Other Reaction(s): GI Disturbance, other, Vomiting, Vomiting Other reaction(s): Vomiting Esvwsjplhmwav85/27/2023 Other Reaction(s): Other (See Comments), Unknown RcvvhcfsmyhLotyg55/07/2022MoxifloxacinNausea Only,GngzLfs6702/28/2015 Other Reaction(s): Unknown Moxifloxacin Hcl In Nacl11/02/2011NitrofurantoinHives,NvfiZzm05/07/2022Other XmvfvQjxz54/19/2014 Other Reaction(s): other OxcarbazepineGI intolerance,Hives,SjeckxbvgnmbMxgwfn88/13/2011 palpitations QktsweaopxXlzxg67/22/0158XtekdrljmqwNacqu89/16/2012 Other Reaction(s): GI Disturbance, Other (See Comments), Unknown, Vomiting, Vomiting, Vomiting Other Reaction(s): other GxyscfwzwgStristafwhrhAyo74/20/2013 Other Reaction(s): Mental Status Change, other, Unknown hallucinate UnhmjffcdpUzaejw33/12/2019 Other Reaction(s): Altered mental status Other Reaction(s): Other Shellfish AllergyRash,ThxhkWxtt89/16/2012 Other Reaction(s): rash Iqpubbzpcfjhjzld33/04/2022 Other Reaction(s): Other (See Comments), Unknown Sulfamethoxazole-Qoojokpueziq60/12/2019 Other Reaction(s): Vomiting TopiramateGI ujsszoaelzc18/22/2023Valproic Acid07/30/2019 Other Reaction(s): Alopecia, Unknown VerapamilGI nrgqohdulwk02/13/2015Wound Dressing PqewlozrXrnoSde64/16/2012 Other Reaction(s): other Other Reaction(s): Other rash Other Reaction(s): Other (See Comments) rash Other Reaction(s): other ??Other Reaction(s): Other ??rash QuwypjyhnfsMrjpsaisnqspCaj92/13/2011 Other Reaction(s): other, Unknown Ziprasidone HclHives,SxmbjdzkhpwzZzopnv30/19/2014 palpitations Medications MedicationSigDispense QuantityRefillsLast FilledStart DateEnd DateStatus albuterol (2.5 MG/3ML) 0.083% nebulizer solution Take 2.5 mg by nebulization every 6 (six) hours.Active Ventolin HFA 108 (90 Base) MCG/ACT inhaler Inhale 1 puff in the morning and 1 puff in the evening and 1 puff before bedtime.Active ALPRAZolam (Xanax) 1 MG tablet Take 1 mg by mouth as needed at bedtime for sleep.Active atorvastatin (Lipitor) 80 MG tablet Take 80 mg by mouth in the morning.01/03/2023ctive carvedilol (Coreg) 25 MG tablet Take 25 mg by mouth in the morning and 25 mg before bedtime.01/03/2023ctive ergocalciferol (Vitamin D2) 1.25 MG (22396 UT) capsule Take 1 capsule by mouth 1 (one) time per week.Active ondansetron (Zofran) 4 MG tablet TAKE 1 TABLET BY MOUTH EVERY 12 HOURS FOR 10 DAYS NEEDED FOR NAUSEA AND ROAGHFFD65/13/2023ctive omeprazole (PriLOSEC) [address] capsule Take 1 capsule every day by oral route.08/31/2022ctive meclizine (Antivert) 25 MG tablet Take 25 mg by mouth 3 (three) times a day as needed.07/02/2022ctive cetirizine (ZyrTEC) 10 MG tablet Take 10 mg by mouth in the morning.Active furosemide (Lasix) 20 MG tablet Take 20 mg by mouth in the morning.Active loperamide (Imodium) 2 MG capsule TAKE 2 CAPSULES BY MOUTH AFTER 1ST LOOSE STOOL AND 1 CAPSULE AFTER EACH NEXT BOWEL MOVEMENT; DO NOTEXCEED 16MG (8 CAPSULES) IN 24 HOURS12/20/2022ctive montelukast (Singulair) 10 MG tablet Take 10 mg by mouth in the evening.Active metFORMIN (Glucophage) 500 MG tablet Take 500 mg by mouth in the morning. Take with meals.05/06/2023ctive Alcohol Swabs (Global Alcohol Prep Ease) 70 % pads APPLY 1 PAD TOPICALLY EVERY 14 (FOURTEEN) DAYS.03/10/2024ctive solifenacin (VESIcare) 10 MG tablet Take 10 mg by mouth Daily03/27/2024ctive nystatin (Mycostatin) 921556 UNIT/ML suspension TAKE 5ML BY MOUTH FOUR TIMES A DAY (MORNING, NOON, EVENING, BEDTIME) FOR 5 DAYS. 03/24/2024ctive lidocaine (Lidoderm) 5 % patch PLACE 1 PATCH ON THE SKIN DAILY. REMOVE & DISCARD PATCH WITHIN 12 HOURS OR DIRECTED BY MDActive dilTIAZem CD (Cardizem CD) 120 MG 24 hr capsule Take 120 mg by mouth Daily03/27/2024ctive Continuous Glucose Transmitter (Dexcom G6 transmitter) misc 1 UNIT BY MISCELLANEOUS ROUTE EVERY 3 (THREE) MONTHS.01/27/2024ctive ARIPiprazole (Abilify) 15 MG tablet Take 15 mg by mouth Daily03/27/2024ctive Continuous Glucose Sensor (FreeStyle Lilliam 2 Sensor) misc USE DIRECTED AND CHANGE EVERY 14 DAYS07/24/2024ctive EPINEPHrine (Epipen) 0.3 MG/0.3ML injection syringe INJECT 0.3MG INTO THE APPROPRIATE MUSCLE NEEDED FOR ALLERGIC REACTION UP TO 1 DOSEActive lidocaine (Xylocaine) 5 % ointment Indications:Lumbar radiculopathy,PHN (postherpetic neuralgia),Diabetic peripheral neuropathy (HCC)APPLY TO THE AFFECTED AREA THREE TIMES DAILY NEEDED FOR PAIN 150 g 5Active calcium carbonate 1500 (600 Ca) MG tablet Indications:Localized osteoporosis, unspecified pathological fracture presence TAKE ONE TABLET BY MOUTH TWICE A DAY 60 tablet 1105Active Ajovy 225 MG/1.5ML auto-injector Indications:Intractable chronic migraine without aura and without status migrainosusINJECT 1 PEN (225 MG) UNDER THE SKIN EVERY 30 (THIRTY) DAYS 1.5 mL 11012/19//6Active doxepin (Silenor) 3 MG tablet Indications:Primary insomniaTake 1 tablet (3 mg) by mouth at bedtime 30 tablet 5Active Thiamine Mononitrate 100 MG tablet Indications:Diabetic peripheral neuropathy (HCC)TAKE 1 TABLET BY MOUTH IN THE MORNING AND IN THE EVENING 60 tablet 5Active alendronate (Fosamax) 70 MG tablet Indications:Osteopenia after menopauseTAKE ONE TABLET BY MOUTH ONCE WEEKLY 30 MINUTES BEFORE THE FIRST FOOD, BEVERAGE, OR MEDICINE OF THEDAY WITH PLAIN WATER 4 tablet 5Active alendronate (Fosamax) 70 MG tablet Indications:Osteopenia after menopauseTAKE ONE TABLET BY MOUTH ONCE WEEKLY 30 MINUTES BEFORE THE FIRST FOOD, BEVERAGE, OR MEDICINE OF THEDAY WITH PLAIN WATER 4 tablet /DiscontinuedHospital, Clinic, or Other Facility Administered MedicationOrdered DoseRouteFrequencyStart DateEnd DateStatus lidocaine (Xylocaine) 5 % ointment Indications:Lumbar pbazuvdcyvlwdBDKMmoo54/29/2025Active Active Problems ProblemNoted DateDiagnosed DatePrimary fhuzryfi08/11/2905Gdlaeytkzciab55/09/2025 Peripheral arterial jrbcowg6510/26/2024hronic pain of left knee05/20/2024 Rheumatoid factor ksugpwvf71/30/2024iastolic ntgmxwwgrad09/21/2024History of carpal tunnel hfspckv7204/08/2024History of sinus diixzrp9404/08/2024Hypokalemia 04/08/2024Nicotine dependence, cigarettes, lrsbctiqsppes05/21/2024arpal tunnel ylcgjgmg86/23/2024Enthesopathy of elbow03/10/2024Lesion of left ulnar nerve 03/10/2024enign paroxysmal positional vertigo due to bilateral vestibular knjcjsge18/03/2024History of UTI11/20/2023OAB (overactive bladder)10/03/2023 Gross tbimatqwa43/15/2024Lesion of ulnar nerve, xapgtshsq20/20/2023bnormality of gait and rgpkeknv14/13/2023Lumbar degenerative disc zkxkshc2106/24/2023ubital tunnel syndrome, hyyewrlbw68/02/2023ervical paraspinal muscle spasm05/02/2023 Lumbar xemyyjjqurlmz66/14/2023Restless leg oyvludqr62/14/2023rug-induced zkymvtzqbwxq22/14/2023Sacral bkohrrylu93/17/2023Lumbar strain, wcorqml4504/04/2023 Change in bowel hlbgwz5802/25/2023astric foreign body02/25/2023ontracture, right ankle02/25/2023olon polyp02/25/20235949Qrdljcdx00/10/9441Rcfwvnmjs95/10/2023Urinary twfypjxdr77/10/2023Urge isxhidrsfotx30/10/2023Flank pain02/25/2023ilateral low back pain with ztikmmtl94/10/9311Rlavkbudlvvf12/10/0580Agfkhilmnp30/10/2023MI 30.0-30.9,adult02/25/2023Nausea and wewfwnsz09/10/4283Womcpxtgn45/10/2023 Axsrdwth37/10/2023Incomplete emptying of oybfjwy5902/25/2023History of kidney veksdf3102/25/20233339Prcqcgmuymz39/10/2023ompression injury of nerve02/25/2023 Overview (02/25/2023): pinched nerve in back also Family history of colorectal pnlnux5802/25/2023Screen for colon zcwitz4902/25/2023 Rvbjrrb5302/25/2023iabetes mellitus without mjkutfcnsist61/10/2023eformity of /10/6316Jrxvtrtazu29/08/2023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 early okzyotvpo23/18/2023TMJ jtkpxdyxnz58/27/2023 Tertiary contraction of ouwrrgiae89/27/2023Tarsal tunnel yzgqrlqa38/27/2023Sleep apnea11/12/2022 Overview (02/25/2023): does not use cpap any longerpt uses CPAP does not use cpap any longerpt uses CPAP does not use cpap any longerpt uses CPAP Plantar fasciitis, exwlklays30/27/2023ersonality /27/2023Morton's neuroma of both feet11/12/2022Loose wjttov4011/12/20224943Gqxrdginmkmf13/27/2023Mixed incontinence urge and wxushx8011/12/20222348Ljtlqthtpubg87/27/2023Hammer toes of both feet11/12/2022astric nggttqny92/27/2023Feeling of incomplete bladder emptying 11/12/20222719Yjdyurryf52/27/2023Encounter for medication mfziezxtuq97/06/2023 Altered bowel yzdylnlq39/03/2022Esophageal tejwethxgdp00/03/2022Gastric bezoar 05/21/2022Urethral sddsptmfy86/03/2022tress incontinence of urine05/21/2022 Yqokqlld28/03/2022Peripheral venous rwfsrcdtaoazp73/03/2022steochondritis dissecans of right ankle05/21/2022besity with body mass index 30 or greater 05/21/20222016Ilhouagiypya42/03/2022History of renal jaleuyu8705/21/2022ysphagia 05/21/2022ifficulty tcqhitl94/03/2022Diabetic peripheral jxhhlbpaot64/03/2022 Current xucbbx3110/10/2021 Overview (02/25/2023): Added secondary to documentation in Social History. Added secondary to documentation in Social History. Added secondary to documentation in Social History. Type 2 diabetes /22/2022Irritable bowel syndrome with diarrhea 10/10/2021Essential urnspqydwfby08/22/2022ttention deficit hyperactivity oscewbbh55/17/2022orderline personality ilmgkves31/17/9633Gqgslge69/17/2022 Unjnrpymgr21/17/2022osttraumatic stress nyeitvxg79/17/2022bsessive-compulsive /17/2022llergic vkhkffsa35/27/6892Yysutfnfjr10/28/2021arotid gland kffzdtmuapa67/28/4094Ypeottkbgcmh87/25/2020Chronic back pain04/12/2020 Muvlyddufmxvgu84/25/2020Lumbar tmhjjnwijgp44/09/2020Disorder of prxrvf6401/26/2020 Lumbosacral spondylosis without ojxlpujpwa26/21/2020 Overview (02/25/2023): Added automatically from request for surgery [id number] Chronic, continuous use of uffhnbu2702/28/2015History of gastroesophageal reflux (GERD)02/28/2015History of obqqoiehphhe54/13/2015History of cabjggpurt67/13/2015 History of bipolar cczgxvuu44/13/2015History of COPD02/28/2015History of attention deficit hyperactivity disorder (ADHD)02/28/2015History of anxiety zukiibqu92/13/2015Gastroesophageal reflux gchtksu5610/23/2013ipolar disorder 10/23/2013Chronic obstructive lung ddczsjm0810/23/20138891Xodnhnie36/07/2014Mitral valve rfxxxypz41/07/2014Kidney stone10/23/2013Generalized osteoarthritis 10/23/2013Generalized anxiety /07/9962Zhbilbgefgxdb55/07/2014 Oihigbmpvhvlch15/07/2014icipital lsgxjgqqkgego28/06/2014 Overview (02/25/2023): LEFT Degenerative joint disease of shoulder rvrnnj9410/22/2013 Overview (02/25/2023): BILATERAL Left shoulder pain10/22/2013Disorder of bursae of shoulder txouri5210/22/2013 Overview (02/25/2023): BILATERAL Zmryldkc80/20/0490Zffbsdli20/02/2012Neck pain09/20/2011Leg pain, bilateral 09/20/2011nxiety state05/01/20117903Hipzgbc38/13/2011Chronic edtzmxywut93/13/2011 Pain in limb05/01/2011Low back pain05/01/2011 Encounters DateTypeDepartmentCare SkmnIhheivvxupg59/27/8459Icxhzr49/14/2025Telephone [facility] [address] [place] [address] Gricelda Hammond, PT Concerning OP PO PT; dos Telephone [facility] [address] [facility] [address] [place] [address] Carlos Sanchez MD 05/17/2025Refill [facility] [address] [place] [address] [place] [phone] David Villalobos DO Osteopenia after ozxftoofv94/03/2025Telephone [facility] [address] [place] [phone] Alla Arce, JAGRUTI Vbxecyck62/29/2025Telephone [facility] [address] [place] [address] Britni Rosas, ARRT 03/23/2025Telephone [facility] [address] [place] [address] Jr. Jim Lerma, surgery educfcref48/04/2025Refill [facility] [address] [facility] [address] [place] [address] Carlos Sanchez MD Diabetic peripheral neuropathy (HCC) (Primary Dx)from Last 3 Months Immunizations ImmunizationAdministration DatesNext DueHep A, Adult06/02/2019,11/21/2018 Influenza, Sdabbjozhdp07/06/2023,04/15/20202374VLSS-UTK-4 (COVID-19) vaccine, mRNA, spike protein, LNP, PF, 50 mcg/0.5 mL06/24/2023Zoster, Mhotedjvupo91/22/2024 Family History Medical HistoryRelationNameCommentsAlcohol abuseFatherDiabetesMotherRelationName StatusCommentsFatherDeceasedMotherDeceased Social History Tobacco UseTypesPacks/DayYears UsedDateSmoking Tobacco: FormerCigarettes0.539.8 Started: 08/19/1985Passive Smoke Exposure: CurrentSmokeless Tobacco: Never Tobacco Cessation:Counseling Given: Not Answered Alcohol UseStandard Drinks/WeekCommentsNot Currently0 (1 standard drink = 0.6 oz pure alcohol)caffeine intake: 1-2 cups per dayAUDIT-CAnswerDate RecordedQ1: How often do you have a drink containing alcohol?Monthly or less04/08/2024Q2: How many drinks containing alcohol do you have on a typical day when you are drinking?1 or Q3: How often do you have six or more drinks on one occasion?Less than huphkzv5604/08/2024CommentsNoSex and Gender Information ValueDate RecordedSex Assigned at NwjtpNbfsgc89/06/2024 7:44 PM EDTLegal Sex Eqaveu0910/31/2022 6:42 PM EDTGender BgytrvfgQylyrv28/06/2024 7:44 PM EDTSexual OrientationNot on file Last Filed Vital Signs Vital SignReadingTime TakenCommentsBlood Qhnogiwo286/7607 2:48 PM EDT Hiysc289206/18/2024 3:01 PM EDTTemperature--Respiratory Ntoi328503/04/2025 1:18 PM EDTOxygen Saturation--Inhaled Oxygen Concentration--Ytwwxw65.9 kg (154 lb) 03/04/2025 1:18 PM DVNAxmjaj495.6 cm (5' 4 )03/04/2025 1:18 PM EDTBody Mass Index26.4307 1:18 PM EDT Plan of Treatment DateTypeDepartmentCare Team (Latest Contact Info)Uvjlfxqhlar44/03/2025 2:40 PM ESTOffice Visit [facility] [address] [place] [address] Carlos Sanchez MD [address] [facility] [address] [place], [place] [id number] Health MaintenanceDue DateLast DoneCommentsCT Mchatjsqfbdz1970FIT-DNA 1970FIT1970FOBT1970 4008Cjuosjykkcwxx1970Influenza Vaccine (#1)509/, 06/24/2023, 04/15/20206464Jtdaoodku19/11/47590709/29/2024, 09/27/2023, 09/10/2022, Additional history existsCervical Cancer Screening 07/29/2029HPV/Lwnfja9307/29/2029Pap Smear4Colonoscopy01/17/2033 01/17/2023, 03/14/2020Colorectal Cancer Ssukibsti14/01/2033 Procedures Procedure NamePriorityDate/TimeAssociated DiagnosisCommentsMM TOMOSYNTHESIS SCREENING BI09/29/2024 2:44 PM EST PAP DBTGTCsodxch22/11/2024 12:00 AM ESTfrom Last 3 Months or Most Recently Relevant to Health Maintenance Results * MM TOMOSYNTHESIS SCREENING BI (09/29/2024 2:44 PM EST)Anatomical Region LateralityModalityOtherSpecimen (Source)Anatomical Location / Laterality Collection Method / VolumeCollection TimeReceived Time09/29/2024 2:44 PM EST Narrative 09/29/2024 2:45 PM EST [facility] ?[address] ? [place] [address] ? Mammography Report ? Signed ? Patient: ROCK MEZA ?MR#: [id number] ?? : 1970 ?Acct:[id number] ?? Age/Sex: 54 / F ?ADM Date: 09/29/24 ?? Loc: MAMMO ? Attending Dr: David Villalobos D.O. ? Ordering Physician: David Vlilalobos D.O. ?Results: ? Date of Service: 09/29/24 ?Follow Up: ? Procedure(s): MM tomosynthesis screening BI ?? Accession Number(s): [id number] ? cc: David Villalobos D.O.; Farida Vergara INTERNAL GRINDING MACHINE OPERATOR ? Patient Name: ? ROCK DUTTON ? MR#: [id number] ? : 1970 ? Exam Date: 09/29/2024 ?? Ordering Doctor: DR David Villalobos . ? RADIOLOGY REPORT ? PROCEDURE: ? MM TOMOSYNTHESIS SCREENING BI ? COMPARISON: ? MM TOMOSYNTHESIS SCREENING BI, 09/27/2023. ??[facility] ?? 3D TAJ CAD, 09/10/2022. ? INDICATIONS: ? Screening ? Calculator Name ? NCI Breast Cancer Risk Assessment Tool ?? 5 Year Breast Cancer Risk ? 1.20% ?? Lifetime Breast Cancer Risk ? 9.00% ?? Personal Breast Cancer ?No ?? Personal Ovarian Cancer ? No ?? Treatments ? None ?? Family Cancers ? Mother with ovarian cancer at age ??60. ? LOCATION: ? [facility] ? BREAST COMPOSITION: ? The breasts are heterogeneously dense,which may ?? obscure small masses. ? FINDINGS: ? DIAGNOSTIC CATEGORY 2--BENIGN FINDING. NO CHANGE FROM COMPARISON. ? Scattered benign-appearing calcifications are present. ??Scattered ?? benign-appearing lymph nodes are present. ? RIGHT BREAST: ??No significant suspicious finding. ? LEFT BREAST: ??No significant suspicious finding. ? RECOMMENDATIONS: ? ROUTINE MAMMOGRAM AND CLINICAL EVALUATION IN 12 MONTHS. ? PLEASE NOTE: ??A NORMAL MAMMOGRAM DOES NOT EXCLUDE THE POSSIBILITY OF BREAST ?? CANCER. ??A CLINICALLY SUSPICIOUS PALPABLE LUMP SHOULD BE BIOPSIED. ? Dictated by: Donny Coombs MD on 09/29/2024 at 14:43 ? Approved by: Donny Coombs MD on 09/29/2024 at 14:44 ? Dictated By: ?Donny Coombs M.D. ? Signed By: ?09/29/24 1445 ? DD/ 43 ? TD/TT: ? Pressure Steamer Tender: Procedure Note Radiology, Radiologist, - 09/29/2024 [place] [address] Mammography Report Signed Patient: ROCK MEZA JMR#: [id number] : 1970Acct:[id number] Age/Sex: 54 / FADM Date: 09/29/24 Loc: MAMMO Attending Dr: David Villalobos D.O. Ordering Physician: David Villalobos D.O.Results: Date of Service: 09/29/24Follow Up: Procedure(s): MM tomosynthesis screening BI Accession Number(s): [id number] cc: David Villalobos D.O.; Farida Vergara NP Patient Name: ROCK MEZA MR#: [id number] : 1970 Exam Date: 09/29/2024 Ordering Doctor: [...] M.D. Signed By:09/29/24 1445 DD/ 1444 TD/TT: Pressure Steamer Tender: Authorizing ProviderResult TypeResult StatusGeneric External Data Provider CLINISYNC IMAGINGFinal Result * Pap Smear (07/29/2024 12:00 AM EST)Specimen (Source)Anatomical Location / LateralityCollection Method / VolumeCollection TimeReceived TimeSwabCervical swab / Unknown Narrative Authorizing ProviderResult TypeResult StatusCorey Wilfredo DOLAB CYTOLOGY ORDERABLESFinal ResultPerforming OrganizationAddressCity/State/ZIP CodePhone Number EXTERNAL LAB from Last 3 Months or Most Recently Relevant to Health Maintenance Insurance Care Teams Team MemberRelationshipSpecialtyStart DateEnd Date Robert Hathaway MD [address], [place] [address] PCP - Generalmily Medicine11/19/24
--- OUTSIDE RECORDS SUMMARY | 2025-06-15 19:52 | XMS_ITS | Encounter Summary ---
Author Organization [facility] Sys tem Address [id number] [address] 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 Name Role Phone Robert Hathaway Primary Care Provider + [phone] Encounter Details DateTypeDepartmentCare Team (Latest Contact Info)Msbsiopnuxm41/15/2025Orders Only [facility] - Family Medicine [address] [place] [id number] Ref Prov, [place] [address] Social History Tobacco UseTypesPacks/DayYears UsedDateSmoking Tobacco: FormerCigarettes0.836.5 04/15/1988 - 02/17/2025Passive Smoke Exposure: CurrentSmokeless Tobacco: Never Alcohol UseStandard Drinks/WeekCommentsNot Currently0 (1 standard drink = 0.6 oz pure alcohol)[facility] UtilitiesAnswerDate RecordedIn the past 12 months has the Queryday, gas, oil, or water Diabetica threatened to shut off services in your home?No07/08/2023Social Connection and Isolation PanelAnswerDate RecordedIn a typical week, how many times do you talk on the phone with family, friends, or neighbors?More than three times a week01/24/2023How often do you get together with friends or relatives?More than three times a week01/24/2023How often do you attend hinduism or presybeterian services?Never01/24/2023o you belong to any clubs or organizations such as hinduism groups, unions, fraternal or athletic groups, or school groups?No01/24/2023How often do you attend meetings of the clubs or organizations you belong to?Never01/24/2023re you , , , , never , or living with a partner?Hljntegbt13/08/2023UDIT-C AnswerDate RecordedQ1: How often do you have [...] like food, housing, medical care, and heating?Patient /01/2025PHQ-2AnswerDate RecordedTotal Yevma145[facility] [place] [facility] Occup[facility] - Occupational Stress QuestionnaireAnswerDate RecordedDo you feel stress - tense, restless, nervous, or anxious, or unable to sleep at night because yourmind is troubled all the time - these days?To some bwngxl5201/24/2023Exercise Vital Sign AnswerDate RecordedOn average, how many days per week do you engage in moderate to strenuous exercise (like a brisk walk)?4 days01/24/2023On average, how many minutes do you engage in exercise at this level?10 min01/24/2023RAPARE - TransportationAnswerDate RecordedIn the past 12 months, has lack of transportation kept you from medical appointments or from getting medications? Patient dgzulpdj15/01/2025In the past 12 months, has lack of transportation kept you from meetings, work, or from getting things needed for daily living?Patient qrlcrerz32/01/2025Housing InstabilityAnswerDate RecordedAre you worried or concerned that in the next two months you may not have stable housing that you own, rent or stay in as a part of a household?Patient Oejrihdp50/01/2025 ChildcareAnswerDate RecordedDo problems getting childhood development teacher make it difficult for you to work or study?No01/24/2023EmploymentAnswerDate RecordedDo you need help finding a local career center and/or a training program?No01/24/2023Hunger ScreeningAnswerDate RecordedWithin the past 12 months we worried whether our food would run out before we got money to buy more.Patient Kubrqqcm82/02/2025 Within the past 12 months the food we bought just didn't last and we didn't have money to get more.Patient Dwjqnrxg20/02/2025Purpose - LifeAnswerDate RecordedI have a purpose and direction in my life.Strongly Agree01/24/2023Comments NoSex and Gender InformationValueDate RecordedSex Assigned at BirthNot on file Legal OjbDmxwyo35/06/2015 11:58 AM EDTGender IdentityNot on fileSexual OrientationNot on filedocumented as of this encounter Plan of Treatment DateTypeDepartmentCare Team (Latest Contact Info)Vqtspuavzdq92/30/2025 1:30 PM EDTOffice Visit [facility] [address] [place] [phone] Robert Hathaway DO [address], [facility] [place] [address] documented as of this encounter Procedures Procedure NamePriorityDate/TimeAssociated DiagnosisCommentsMULTIPLE LABSRoutine 06/02/2025 1:02 PM EDTdocumented in this encounter Results * Multiple labs (06/02/2025 1:02 PM EDT) Narrative Authorizing ProviderResult TypeResult StatusNot In System Ref ProvPR IMAGING Final ResultPerforming OrganizationAddressCity/State/ZIP CodePhone Number MANUALLY TRANSCRIBED RESULTS documented in this encounter Visit Diagnoses Not on filedocumented in this encounter Additional Health Concerns AssessmentNoted TimePHQ-9 Depression Total Score: 1:22 PM EDTA Body Mass Index follow-up plan has been documented for the hpyzsdq0307/10/2023 3:34 PM ESTdocumented as of this encounter Care Teams Team MemberRelationshipSpecialtyStart DateEnd Date Robert Hathaway DO [address] [place] [address] PCP - GeneralFamily Medicine05/10/22documented as of this encounter
--- OUTSIDE RECORDS SUMMARY | 2025-06-15 19:52 | XMS_ITS | Clinical Summary ---
Author Organization [employer] Address [id number] [address] [place] [address] Care Team Providers Care Education Associate Name Role Phone Robert Hathaway Primary Care Provider + [phone] Allergies Active AllergyReactionsCriticalityNoted DateCommentsAdhesive Tape-SiliconesOther (See Comments),RgdoDfc4011/02/2011 rash Other Reaction(s): other Other Reaction(s): Other rash Other Reaction(s): other Other Reaction(s): Other rash Other Reaction(s): Other (See Comments) rash??Other Reaction(s): other ??Other Reaction(s): Other ??rash AmitriptylineAbnormal Szqumhnp39/26/2017 hallucinate UpymtdygmlxApfuszyy43/26/2017Amoxicillin-Pot ClavulanateGI DisturbanceLow 03/13/2017Atomoxetine HclGI Disturbance,NegkwbungyxlLmlcpq07/26/2017 palpitations Sulfamethoxazole-TrimethoprimHives,Ybhbcieb46/12/2019Bupropion HclGI Disturbance ,NbjmorqzdkkoEeutqe59/26/2017 palpitations UhyfqxuRnrvcCmkz35/26/7235Zsqkaacwye22/12/0917Ptvjsufbru88/12/2019Dexamethasone (Pf)07/30/2019DoxycyclineGI Disturbance,WzlftxeimjzaGqdzeq13/26/2017 palpitations Eicosapentaenoic Acid03/13/2017Fish Containing TplnjkjeWmosJdw02/16/2012Fish RznomqwPqdwuOsgn99/26/2017Fluticasone Propion-SalmeterolItching,PalpitationsLow 03/13/2017IbuprofenGI ChgdyziqeivGnp46/26/2017Iodinated Contrast Media AhfirwqwhahGjhu60/19/2024 Patient started to have SOB and felt faint Twdqongoa99/26/2017 Other reaction(s): Other: See Comments Abdominal pain MethadoneGI DmszcdfalelGax75/26/2017 Other reaction(s): Vomiting MethocarbamolOther (See Comments)11/12/2022MilnacipranOther (See Comments) 05/25/20227536Wyqnuocsg59/12/4274GquqxqfxopduKzdhed26/16/2990Hstaoavpbr22/12/2019 Nitrofurantoin Monohyd/M-CrystOther (See Comments)05/25/2022xcarbazepineGI Disturbance,IhgebjkwbemjYpygcb27/26/2017 palpitations YeswdbnxyjDqcgz43/22/2023PenicillinOther (See Comments)08/06/2014PenicillinsGI Disturbance,Hives,Other (See Comments),Zwxorkih64/19/2014PregabalinOther (See Comments),SbstwpkfjbrxFvn97/26/2017 hallucinate Amkobxonpu00/12/2019Shellfish Containing ProductsRash,CsxcoUfwn50/16/2012 Shellfish Dvnoxmu9807/30/2019Sodium Chloride-Aloe Vera08/28/2023 Facial numbness/tongue numbness SulfamethoxazoleOther (See Comments)03/22/2022TopiramateGI Disturbance,Other (See Comments)Low03/13/2017Valproic Acid07/30/2019 Other Reaction(s): Alopecia, Unknown VerapamilGI JbdkjznkvwjVpl27/26/2017Verapamil Hcl07/05/2022Ziprasidone Palpitations,Other (See Comments)Low08/06/2014Ziprasidone HclPalpitationsMedium 03/13/2017 palpitations Medications MedicationSigDispense QuantityRefillsLast FilledStart DateEnd DateStatus albuterol (PROVENTIL HFA;VENTOLIN HFA) 90 mcg/actuation inhaler Inhale 2 puffs every 6 (six) hours as needed for wheezing.Active fremanezumab-vfrm (AJOVY AUTOINJECTOR) 225 mg/1.5 mL 1.5 mL (225 mg total) every 30 (thirty) days.10/25/2021ctive rimegepant (NURTEC ODT) 75 mg tablet,disintegrating Active alendronate (FOSAMAX) 70 mg tablet 10/08/2022ctive ammonium lactate (LAC-HYDRIN) 12 % lotion Apply topically 2 (two) times a day. 400 g 10/22/2022ctive calcium carbonate (OS-LARRY) 600 mg (1,500 mg) tablet 11/06/2022ctive diphenhydrAMINE (BenadryL) 25 mg capsule Indications:Rash in adultTake 1 capsule (25 mg total) by mouth every 6 (six) hours as needed for itching or allergies. MAY CAUSE DROWSINESS. HOLD hydroxyzine while taking this medication. 15 capsule 01/02/2023ctive nebulizers [facility] [place]ications:Chronic obstructive pulmonary disease, unspecified COPD type (CMS-HCC)1 Unit by miscellaneous route every 6 (six) months. 1 each ctive nebulizer accessories [facility] [place]ications:Chronic obstructive pulmonary disease, unspecified COPD type (CMS-HCC)1 Tube by inhal. via small vol.nebulizer route every 6 (six) months. 1 each ctive uoijemdx-unqc-JS-calcium &mins (THERAGRAN-M) 9 mg iron-400 mcg tablet Take 1 tablet by mouth in the morning.Active solifenacin (VESICARE) 10 mg tablet Take 1 tablet (10 mg total) by mouth in the morning.01/28/2024ctive thiamine mononitrate, vit B1, (VITAMIN B-1, MONONITRATE,) 100 mg tablet Take 1 tablet (100 mg total) by mouth in the morning and 1 tablet (100 mg total) before bedtime.04/30/2024ctive dilTIAZem CD (CARDIZEM CD) 120 mg 24 hr capsule TAKE ONE CAPSULE BY MOUTH ONCE DAILY 30 capsule ctive EPINEPHrine (EPIPEN) 0.3 mg/0.3 mL auto-injector Indications:Allergic reaction, initial encounterInject 0.3 mL (0.3 mg total) into the appropriate muscle as needed (As needed for allergic reaction) for up to 1 dose. 1 each 07/07/2024ctive nystatin (MYCOSTATIN) cream APPLY TO AFFECTED AREA VIA TOPICAL ROUTE TWICE A DAY 15 g 5Active lidocaine (XYLOCAINE) 5 % ointment 5Active furosemide (LASIX) 20 mg tablet TAKE ONE TABLET BY MOUTH ONCE DAILY 30 tablet 5Active oxygen Inhale continuously.Active atorvastatin (LIPITOR) 80 mg tablet TAKE ONE TABLET BY MOUTH DAILY 30 tablet 5Active naloxone (NARCAN) 4 mg/actuation spray,non-aerosol nasal spray Administer 1 spray (4 mg total) into alternating nostrils as needed for opioid reversal. 2 each 5Active blood sugar diagnostic (TRUE METRIX GLUCOSE TEST STRIP) strip Indications:Diabetes mellitus without complication ([facility])1 strip by other route as needed for high blood sugar. 100 strip 5Active blood-glucose meter (TRUE METRIX GLUCOSE METER) [facility] [place] mellitus without complication [place]1 Unit by miscellaneous route in the morning. 1 each 5Active lancets [facility] [place]ications:Diabetes mellitus without complication ([facility])1 Lancet by miscellaneous route in the morning. 100 each 5Active TRUEPLUS LANCETS 33 gauge [facility] 5Active ARIPiprazole (ABILIFY) 15 mg tablet TAKE ONE TABLET BY MOUTH ONCE DAILY 30 tablet 5Active montelukast (SINGULAIR) 10 mg tablet TAKE ONE TABLET BY MOUTH DAILY IN THE EVENING 30 tablet 5Active omeprazole (PriLOSEC) 40 mg capsule TAKE ONE CAPSULE BY MOUTH ONCE DAILY BEFORE MEAL 30 capsule 5Active ergocalciferol (DRISDOL) 1,250 mcg (50,000 unit) capsule TAKE ONE CAPSULE BY MOUTH ONCE WEEKLY 5 capsule 5Active ondansetron ODT (ZOFRAN ODT) 4 mg disintegrating tablet Dissolve 1 tablet (4 mg total) on tongue every 8 (eight) hours as needed for nausea or vomiting. 10 tablet 5Active metFORMIN (GLUCOPHAGE) 500 mg tablet Indications:Type 2 diabetes mellitus with diabetic mononeuropathy, without long- term current use of insulin ([facility])TAKE 1 TABLET (500 MG TOTAL) BY MOUTH DAILY WITH BREAKFAST. 30 tablet 5Active ALPRAZolam (XANAX) 1 mg tablet Indications:AnxietyTake 1 tablet (1 mg total) by mouth 3 (three) times a day as needed for anxiety. 90 tablet 5Active cetirizine (ZyrTEC) 10 mg tablet TAKE ONE TABLET BY MOUTH ONCE DAILY 30 tablet 5Active carvediloL (COREG) 12.5 mg tablet Take 1 tablet (12.5 mg total) by mouth in the morning and 1 tablet (12.5 mg total) in the evening. Take with meals.Active traMADoL (ULTRAM) 50 mg tablet Indications:Complex tear of medial meniscus of left knee, sequelaTake 1 tablet (50 mg total) by mouth every 6 (six) hours as needed for pain. 30 tablet 5Active meclizine (ANTIVERT) 25 mg tablet Take 1 tablet (25 mg total) by mouth 3 (three) times a day as needed for dizziness. 20 tablet 5Active alcohol swabs (ALCOHOL PADS) pads, medicated Indications:Type 2 diabetes mellitus with hyperglycemia, without long-term current use of insulin ([facility])Apply 1 Pad topically in the morning. 40 each 5Active nebulizers [facility]ications:Chronic obstructive pulmonary disease, unspecified COPD type ([facility])1 Unit by miscellaneous route every 3 (three) months. 1 each 5Active loperamide (IMODIUM) 2 mg capsule TAKE 2 CAPSULES BY MOUTH AFTER 1ST LOOSE STOOL AND 1 CAPSULE AFTER EACH NEXT BOWEL MOVEMENT; DO NOTEXCEED 16MG (8 CAPSULES) IN 24 HOURS 20 capsule 5Active meclizine (ANTIVERT) 25 mg tablet Take 1 tablet (25 mg total) by mouth 3 (three) times a day as needed for dizziness. 20 tablet Discontinued(Reorder) carvediloL (COREG) 25 mg tablet 05/20/2025Discontinued(Dose adjustment) cetirizine (ZyrTEC) 10 mg tablet take one tablet by mouth once daily 30 tablet /Discontinued alcohol swabs (ALCOHOL PADS) pads, medicated Indications:Type 2 diabetes mellitus with hyperglycemia, without long-term current use of insulin ([facility])APPLY 1 PAD TOPICALLY EVERY 14 (FOURTEEN) DAYS. CLEAN AREA PRIOR TO PLACING SENSOR 40 each /10/2024Discontinued(Reorder) psyllium (METAMUCIL) 0.52 gram capsule Indications:Altered bowel habits,Incontinence of feces with fecal urgencyTake 1 capsule (0.52 g total) by mouth in the morning and at bedtime. 60 capsule /09/2024Discontinued(Therapy completed) loperamide (IMODIUM) 2 mg capsule TAKE 2 CAPSULES BY MOUTH AFTER 1ST LOOSE STOOL AND 1 CAPSULE AFTER EACH NEXT BOWEL MOVEMENT; DO NOTEXCEED 16MG (8 CAPSULES) IN 24 HOURS 20 capsule /Discontinued(Reorder) traMADoL (ULTRAM) 50 mg tablet Indications:Complex tear of medial meniscus of left knee, sequelaTake 1 tablet (50 mg total) by mouth every 8 (eight) hours as needed for pain. 20 tablet /Discontinued(Reorder) traMADoL (ULTRAM) 50 mg tablet Indications:Complex tear of medial meniscus of left knee, sequelaTake 1 tablet (50 mg total) by mouth every 8 (eight) hours as needed for pain. 20 tablet Discontinued traMADoL (ULTRAM) 50 mg tablet Indications:Complex tear of medial meniscus of left knee, sequelaTake 1 tablet (50 mg total) by mouth every 6 (six) hours as needed for pain. 30 tablet Discontinued(Reorder) Active Problems ProblemNoted DateDiagnosed ZrjhMjayqfoyflupt16/09/2025Peripheral arterial syggwqu8110/26/2024hronic pain of left knee05/20/2024heumatoid factor positive 05/18/2024Esophageal caseoapwox33/12/5866Mayivrkcsie76/21/2024History of sinus azhglmn5704/08/2024History of carpal tunnel xblcywv9404/08/2024iastolic dysfunction 04/08/2024Lesion of left ulnar nerve03/10/2024Enthesopathy of elbow03/10/2024 Carpal tunnel zyjamhsn97/23/2024enign paroxysmal positional vertigo due to bilateral vestibular lanroszy03/03/2024egenerative cervical disc01/07/2024 Hallux valgus of right foot10/07/2023Gross /15/2024OAB (overactive bladder)10/03/2023Fecal zervfmgrsfbs98/15/2024bnormality of gait and mobility 07/01/2023Lumbar degenerative disc wxrwrwy8306/24/2023ubital tunnel syndrome, hfvaerekm37/02/2023Lumbosacral radiculopathy at L506/20/2023ervical paraspinal muscle spasm05/02/2023rug-induced ljxsuwmocvot79/14/2023Lumbar radiculopathy 05/02/2023Restless leg cwgmhyrt58/14/2023Lumbar strain, nltxkbs0404/04/2023Sacral /17/0598Oddberhb43/10/2023ilateral low back pain with sciatica 02/25/2023ompression injury of nerve02/25/2023 Overview (06/06/2023): pinched nerve in back also Gastric foreign body02/25/2023olon polyp02/25/2023ontracture, right ankle 02/25/2023eformity of /10/5158Afweggvfjxc22/10/2023Incomplete emptying of hvamerf7302/25/2023Increased frequency of htityhrdr67/10/2023 Osteopenia of hip02/25/2023hange in bowel yxgcwz0702/25/20230859Wteglnzcqt62/08/2023 Downey's neuroma of both feet11/12/2022Hammer toes of both feet11/12/2022lantar fasciitis, fgilanznl59/27/1882Ybwtsivclfyu52/27/6870Xrrduxyynepq33/27/2023 Feeling of incomplete bladder tzdfutqb68astric erosions Loose uyhehf36ersonality disorder OSA (obstructive sleep apnea) Overview (11/12/2022): does not use cpap any longerpt uses CPAP Tarsal tunnel pryisngj02Tertiary contraction of esophagus TMJ jtophlyyfp01Esophageal spasm11/12/2022 11/12/20227841Eqdxvglfv33ERD (gastroesophageal reflux disease) Mixed incontinence urge and Encounter for medication yjbqrvgrgf06/06/2023ltered bowel ixqtwjgk51/03/2022 Diabetic peripheral yaqieljjhv56/03/2022ifficulty qwhikvn5605/21/2022Urethral eqcbcebej63/03/2022tress incontinence of urine05/21/20227712Cerqnseu63/03/2022 Peripheral venous pahwtnhbakyhl98/03/2022steochondritis dissecans of right ankle05/21/20221003Lgkqzcojaihd03/03/2022History of renal odndedn6505/21/2022 Esophageal hqwlxrlxufs33/03/2022Gastric pmmjtb2005/21/20227726Qmllsjzpk47/03/2022 Diabetes mellitus without hyaiwuakbauo58/22/2022Irritable bowel syndrome with hvudonpp89/22/2022Essential rnghrbvoyatd14/22/2022ttention deficit hyperactivity dbjxvudp19/17/2022orderline personality xotjijxl72/17/2022Vertigo 2Posttraumatic stress lrarbbur55/17/2022Obsessive-compulsive disorder 10/05/20219800Wvudfuaeii06/17/2022Allergic aoycflbk74/27/2022Parotid gland goxxiigcyjs43/28/9347Cqjhblohdo89/28/2021Bipolar tazhrplp24/25/2020Chronic back pain04/12/20206675Lvjeygltfknl55/25/9120Sirlijvuvupnsj64/25/2020Lumbar spondylosis 01/26/2020Disorder of lkhsdi8501/26/2020Lumbosacral spondylosis without myelopathy 09/08/2019 Overview (07/01/2023): Added automatically from request for surgery [id number] History of anxiety pkpakwjv38/13/2015History of bavfahgbppmb37/13/2015History of bipolar rmhxkequ49/13/2015History of COPD02/28/2015History of gastroesophageal reflux (GERD)02/28/2015Left shoulder pain02/28/2015Chronic obstructive lung eysdcec3310/23/2013Generalized anxiety yqheqxwo73/07/2014Mitral valve prolapse 10/23/20137643Gaxxnpibsfwxbc55/07/2014Generalized eoofzbqcvznjhv99/07/2014 Gastroesophageal reflux orqhoga8010/23/2013Myofascial pain tddplkao30/07/2014 Kidney exrgzu7010/23/2013icipital dvlknjxyjxrvg70/06/2014Disorder of bursae of shoulder hwjseg6310/22/2013Degenerative joint disease of shoulder btnymc7410/22/2013 Tcwrvgtt39/20/6676Jdyphxnx83/02/2012Leg pain, jtgmowjrp39/02/2012Neck pain 09/20/20113432Mnmxiid72/13/2011Low back pain05/01/2011Pain in limb05/01/2011 Resolved Problems ProblemNoted DateDiagnosed DateResolved DateNicotine dependence, cigarettes, afnvkbjbkjuti57/21//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 early bykdwehhg06/04/2025Obesity with body mass index 30 or iwonkgh37/urrent yfxppg42/04/2025 Overview (05/21/2022): Added secondary to documentation in Social History. Chronic hqyffupvab31/27//hronic, continuous use of opioids History of fedkgfuisa33Depressive disorder Encounters DateTypeDepartmentCare IfmxEbvaooiofkw74/28/2025Refill [facility] [address] [place] [address] Robert Hathaway DO 06/11/2025Orders Only [facility] [address] [place] [address] Ref Prov, Not In System 06/07/2025Telephone [facility] [address] [place] [address] Ramona Silva, [facility] 06/02/2025Orders Only [facility] - [facility] [address] [place] [address] Ref Prov, Not In System 05/28/2025Orders Only [facility] [address] [place] [address] Robert Hathaway, 05/26/2025Telephone [facility] - [facility] [address] [place] [address] Ramona Silva, [facility] 05/26/2025Orders Only [facility] [address] [place] [address] Robert Hathaway, Chronic obstructive pulmonary disease, unspecified COPD type ([facility]) (Primary Dx)05/21/2025Refill [facility] [address] [place] [address] Robert Hathaway, Type 2 diabetes mellitus with hyperglycemia, without long-term current use of insulin ([facility])05/20/2025 1:30 PM EDTOffice Visit [facility] [address] [place] [address] Robert Hathaway, Pre-operative clearance (Primary Dx); Complex tear of medial meniscus of left knee, sequela; Essential hypertension; Generalized anxiety disorder; Chronic obstructive pulmonary disease, unspecified COPD type ([facility]); Diabetes mellitus without complication ([facility])05/20/2025Telephone [facility] [address] [place] [address] Ramona Silva, [facility] 05/19/20257201Zxgqrz23/01/2025Telephone [facility] [address] [place] [address] Mauricecorby DelmyBATSHEVA 05/17/2025Refill [facility] [address] [place] [address] Robert Hathaway, DO 05/17/2025Refill [facility] [address] [place] [address] Robert Hathaway, DO Complex tear of medial meniscus of left knee, mrgjoeu6705/10/2025Refill [facility] [address] [place] [address] Robert Hathaway, DO Complex tear of medial meniscus of left knee, sfipqtc8105/10/2025Telephone [facility] [address] [place] [address] Ramona Silva, [facility] 05/03/2025Refill [facility] [address] [place] [address] Robert Hathaway, DO Complex tear of medial meniscus of left knee, uziyzfc0904/25/2025Refill [facility] [address] [place] [address] Robert Hathaway, DO Complex tear of medial meniscus of left knee, sdjnpqy8904/21/2025Refill [facility] [address] [place] [address] Robert Hathaway, DO Npgfgxl7704/21/2025Refill [facility] [address] [place] [address] NellacadenceRobert, DO Qpbydtc6404/18/2025Refill [facility] [address] [place] [address] NellacadenceRobert, DO Complex tear of medial meniscus of left knee, mfuwapu4104/15/2025Refill [facility] [address] [place] [address] NellacadenceRobert, DO Type 2 diabetes mellitus with diabetic mononeuropathy, without long-term current use of insulin ([facility])04/12/2025Refill [facility] [address] [place] [address] Amaris Hilton, ORGANIZATIONAL DEVELOPMENT CONSULTANT Complex tear of medial meniscus of left knee, tjvtdsb0804/11/2025Refill [facility] [address] [place] [address] NellacadenceRobert, DO Complex tear of medial meniscus of left knee, ybywnof7504/08/2025Refill [facility] [address] [place] [address] NellacadenceRobert, DO 04/04/2025Refill [facility] [address] [place] [address] NellacadenceRobert, DO Complex tear of medial meniscus of left knee, zhfnwrc5303/29/2025Refill [facility] [address] [place] [address] Ramona Silva, ORGANIZATIONAL DEVELOPMENT CONSULTANT Complex tear of medial meniscus of left knee, zscwwzf6403/28/2025Refill [facility] [address] [place] [address] NellacadenceRonenRobert G, DO Complex tear of medial meniscus of left knee, wrgylny6103/24/2025Results Follow-Up [facility] [address] [place] [address] Robert Hathaway, DO POCT Hemoglobin A1c, Tramadol and Metabolite, U, Drug Screen, Urine03/22/2025 Refill [facility] [address] [place] [address] Robert Hathaway, DO Complex tear of medial meniscus of left knee, fwapgwe9603/22/2025Refill [facility] [address] [place] [address] Amaris Hilton, ORGANIZATIONAL DEVELOPMENT CONSULTANT Complex tear of medial meniscus of left knee, zvwjrna9703/22/2025Refill [facility] [address] [place] [address] Robert Hathaway, DO 03/21/2025Refill [facility] [address] [place] [address] Robert Hathaway, DO Complex tear of medial meniscus of left knee, zwuplrd8303/16/2025 2:00 PM EDT Office Visit [facility] [address] [place] [address] Robert Hathaway, DO Lumbosacral radiculopathy at L5 (Primary Dx); Osteoarthritis, unspecified osteoarthritis type, unspecified site; Diabetes mellitus without complication ([facility]); Chronic obstructive pulmonary disease, unspecified COPD type ([facility]); Zmcusdz1403/16/20258938Qyozxx42/28/2025Refill [facility] [address] [place] [address] Robert Hathaway, DO Complex tear of medial meniscus of left knee, sequelafrom Last 3 Months Immunizations ImmunizationAdministration DatesNext DueCovid-19,mrna, Lnp-s, Pf, 50mcg/0.5ml 12+ Zktpeqwl42/24/2024,06/24/2023Hepatitis A1,11/21/2018Influenza (IM) Preservative Free05/12/2024Influenza, Ybrygdrjuvj21/06/2023,04/15/2020 Pneumococcal Conjugate 20-xuoiai6905/12/2024Zoster Vaccine Clcmcjrmchy20/24/2024, 03/09/2024 Family History Medical HistoryRelationNameCommentsCancerBrother 1Robertin whole body when they found itLearning disabilitiesBrother 2JoeSudden deathBrother 2JoeArthritisMother avaAsthmaMotheravaCOPDMotheravaCancerMotheravaovarianDepressionMotheravaDiabetes MotheravaMental illnessMotheravaOvarian cancerMotheravaNo Known ProblemsSon 3was 23 months old and hit by garbage truckAnesthesia problemsNeg HxRelationName StatusCommentsBrother 1RobertDeceasedBrother 2JoeDeceasedDaughter 1AliveDaughter 2AliveFatherDeceasedMotheravaDeceasedSon 1AliveSon 2AliveSon 3Deceased Social History Tobacco UseTypesPacks/DayYears UsedDateSmoking Tobacco: FormerCigarettes0.836.5 04/15/1988 - 02/17/2025Passive Smoke Exposure: CurrentSmokeless Tobacco: Never Tobacco Cessation:Counseling Given: Not Answered Alcohol UseStandard Drinks/WeekCommentsNot Currently0 (1 standard drink = 0.6 oz pure alcohol)[facility] UtilitiesAnswerDate RecordedIn the past 12 months has the [employer], [employer], oil, or water [place] threatened to shut off services in your home?No07/08/2023Social Connection and Isolation PanelAnswerDate RecordedIn a typical week, how many times do you talk on the phone with family, friends, or neighbors?More than three times a week01/24/2023How often do you get together with friends or relatives?More than three times a week01/24/2023How often do you attend yarsanism or moravian services?Never01/24/2023o you belong to any clubs or organizations such as yarsanism groups, unions, fraternal or athletic groups, or school groups?No01/24/2023How often do you attend meetings of the clubs or organizations you belong to?Never01/24/2023re you , , , , never , or living with a partner?Qpixavqfy79/08/2023UDIT-C AnswerDate RecordedQ1: How often do you have [...] like food, housing, medical care, and heating?Patient cnyttzrk48/01/2025PHQ-2AnswerDate RecordedTotal Uajuz153[facility] [place] of Occupational Health - Occupational Stress QuestionnaireAnswerDate RecordedDo you feel stress - tense, restless, nervous, or anxious, or unable to sleep at night because yourmind is troubled all the time - these days?To some wpiinq0401/24/2023Exercise Vital Sign AnswerDate RecordedOn average, how many days per week do you engage in moderate to strenuous exercise (like a brisk walk)?4 days01/24/2023On average, how many minutes do you engage in exercise at this level?10 min01/24/2023RAPARE - TransportationAnswerDate RecordedIn the past 12 months, has lack of transportation kept you from medical appointments or from getting medications? Patient stsrhxyq65/01/2025In the past 12 months, has lack of transportation kept you from meetings, work, or from getting things needed for daily living?Patient /01/2025Housing InstabilityAnswerDate RecordedAre you worried or concerned that in the next two months you may not have stable housing that you own, rent or stay in as a part of a household?Patient Yczwaobq89/01/2025 ChildcareAnswerDate RecordedDo problems getting early childhood specialist make it difficult for you to work or study?No01/24/2023EmploymentAnswerDate RecordedDo you need help finding a local career center and/or a training program?No01/24/2023Hunger ScreeningAnswerDate RecordedWithin the past 12 months we worried whether our food would run out before we got money to buy more.Patient Ihcfcyyc29/02/2025 Within the past 12 months the food we bought just didn't last and we didn't have money to get more.Patient Ktfxolsl79/02/2025Purpose - LifeAnswerDate RecordedI have a purpose and direction in my life.Strongly Agree01/24/2023Comments NoSex and Gender InformationValueDate RecordedSex Assigned at BirthNot on file Legal KgvLanpac85/06/2015 11:58 AM EDTGender IdentityNot on fileSexual OrientationNot on file Last Filed Vital Signs Vital SignReadingTime TakenCommentsBlood Bvkxjodw793/6805/20/2025 1:23 PM EDT Fzngh776605/20/2025 1:23 PM EIHGmjahwjtbmk24.3 ??C (97.3 ??F)05/20/2025 1:23 PM EDTRespiratory Iovb8042 1:23 PM EDTOxygen Pkfyktjrzb14%05/20/2025 1:23 PM EDTInhaled Oxygen Concentration--Ounpwn33 kg (154 lb 6.4 oz)05/20/2025 1:23 PM NSRAstysk136.6 cm (5' 4.02 )05/20/2025 1:23 PM EDTBody Mass Index26.49 05/20/2025 1:23 PM EDT Plan of Treatment DateTypeDepartmentCare Team (Latest Contact Info)Ynnxgkdtnnf37/30/2025 1:30 PM EDTOffice Visit [facility] [address] [phone] Robert Hathaway, DO [address] [place] [address] Health MaintenanceDue DateLast DoneCommentsDiabetic Ophthalmology Exam1970 DTaP,Tdap and Td Vaccines (1 - Tdap)1989Diabetic Foot Exam07/08/2024 07/08/2023, 10/02/2022dult BMI Follow Up PlanMammogram 502/04/2024, 09/10/2022, 08/29/2022OVID-19 Vaccine ( season), 06/24/2023Influenza Hejsdjm96, 06/24/2023, 04/15/2020Statin Use: Yfzpyoprdthimz00Statin Use: Mvzlzrav49dult BMI Dmocyuaiy11Depression Vasliarhn34Tobacco Oziladkeg27olonoscopy Zoster (Shingles) DinssiuEiybcicgp78/24/2024, 03/09/2024ap NsylgEvyztahqjkaq36/11/2024 Medical Devices Not on file Procedures Procedure NamePriorityDate/TimeAssociated DiagnosisCommentsXR CHEST 1 VWRoutine 06/11/2025 7:26 AM EDTMULTIPLE UKFAHbjwysg19/15/2025 1:02 PM EDTDRUG SCREEN, AAHSRWquyoxz08/29/2025 3:16 PM EDT Lumbosacral radiculopathy at L5 Osteoarthritis, unspecified osteoarthritis type, unspecified site TRAMADOL AND METABOLITE, YIpvzrak22/29/2025 3:16 PM EDT Lumbosacral radiculopathy at L5 Osteoarthritis, unspecified osteoarthritis type, unspecified site POCT HEMOGLOBIN N8HBmceqrt30/29/2025 2:44 PM EDT Diabetes mellitus without complication ([facility]) HM RUYFGTWCKEWFeypmdp40/05/2023from Last 3 Months or Most Recently Relevant to Health Maintenance Results * X-ray chest 1 view (06/11/2025 7:26 AM EDT)Anatomical RegionLateralityModality Body, ChestN/AComputed Radiography Narrative Authorizing ProviderResult TypeResult StatusNot In System Ref ProvIMG DIAGNOSTIC IMAGING ORDERABLESFinal Result * Multiple labs (06/02/2025 1:02 PM EDT) Narrative Authorizing ProviderResult TypeResult StatusNot In System Ref ProvPR IMAGING Final ResultPerforming OrganizationAddressCity/State/ZIP CodePhone Number MANUALLY TRANSCRIBED RESULTS * Tramadol and Metabolite, U (03/16/2025 3:16 PM EDT)ComponentValueRef RangeTest MethodAnalysis TimePerformed AtPathologist QtsfuyhspEZQQXNOU8664Wsapsy:25 ng/mL03/24/2025 4:23 AM [facility]-LWIMCPFYLYLYIJFIK6387 Cutoff:25 ng/mL03/24/2025 4:23 AM [facility]Comment: ADDITIONAL INFORMATION Testing performed by Liquid Chromatography-Tandem Mass Spectrometry (LC-MS/MS). This test was developed and its performance characteristics determined by [facility] in a manner consistent with CLIA requirements. This test has not been cleared or approved by the U.S. Food and Drug Administration. Test Performed by: [place] [address] Windows Server Support Technician: Natasha Marshall Ph.D.; CLIA# [id number] Specimen (Source)Anatomical Location / LateralityCollection Method / Volume Collection TimeReceived TimeUrineUrine specimen collection, clean catch / Oxsbxtx8003/16/2025 3:16 PM EDT03/16/2025 3:16 PM EDT Narrative Authorizing ProviderResult TypeResult StatusDennis G Furlong DOURINE ORDERABLES Final ResultPerforming OrganizationAddressCity/State/ZIP CodePhone Number [facility] [address] [place] [address], * (ABNORMAL) Drug Screen, Urine (03/16/2025 3:16 PM EDT)ComponentValueRef Range Test MethodAnalysis TimePerformed AtPathologist SignatureAMPHETAMINE/METHAMP YssdiqtdOhapcfft38/29/2025 10:30 PM [facility] Comment:AMPH/METH screening cut off = 1000 ng/mLCOCAINE METABOLITENegative Wvnltlst47/29/2025 10:30 PM [facility]Comment: Cocaine screening cut off value = 300 ng/pWIMHZQKOBkltoofkCcdcmuiy66/29/2025 10:30 PM [facility]Comment:Ecstasy screening cut off value = 500 ng/xPEVYOLVZXFEutizdfdJqgooswj18/29/2025 10:30 PM [facility]Comment:Methadone screening cut off value = 300 ng/mL.YKRGZGFInilnircNzzewqec53/29/2025 10:30 PM [facility]: Opiates screening cut off value = 300 ng/mL This test is used for the detection of codeine, hydrocodone (>1000 ng/mL), morphine and hydromorphone (>900 ng/mL) in urine. AXOVCZGYQMtguirirJresgzzj18/29/2025 10:30 PM [facility]Comment: Oxycodone screening cut off value = 300 ng/mL This test is used for the detection of oxycodone and oxymorphone in urine. ZDSHPVTSAXJCKHyuizxmpMqrefwwb69/29/2025 10:30 PM [facility]Comment:Phencyclidine screening cut off value = 25 ng/mLCANNABINOIDS KjsoilrkGbrdalwm17/29/2025 10:30 PM [facility] Comment:Cannabinoids/THC screening cut off value = 50 ng/mLUrine Barbiturates NulxjgmbKlxsepdz95/29/2025 10:30 PM [facility] Comment:Barbiturates screening cut off value = 200 ng/mLBENZODIAZEPINESPositive (A)Cgxpgzof37/29/2025 10:30 PM [facility]: Benzodiazepines screening cut off value = 200 ng/mLSpecimen (Source)Anatomical Location / LateralityCollection Method / VolumeCollection TimeReceived TimeUrine 03/16/2025 3:16 PM EDT03/16/2025 3:16 PM EDT Narrative Authorizing ProviderResult TypeResult StatusRonenmarcos Pamela Furlong DOURINE ORDERABLES Final ResultPerforming OrganizationAddressCity/State/ZIP CodePhone Number [facility] [address] [place] [address], * POCT Hemoglobin A1c (03/16/2025 2:44 PM EDT)ComponentValueRef RangeTest Method Analysis TimePerformed AtPathologist SignatureExternal Poct Hgb A1C5.34 - 7 % MANUALLY TRANSCRIBED RESULTSSpecimen (Source)Anatomical Location / Laterality Collection Method / VolumeCollection TimeReceived YdloTifis58/29/2025 2:44 PM EDT Narrative Authorizing ProviderResult TypeResult StatusRonenmarcos Pamela Carmenlong DOPOINT OF CARE TEST ORDERABLESFinal ResultPerforming OrganizationAddressCity/State/ZIP Code Phone Number MANUALLY TRANSCRIBED RESULTS * COLONOSCOPY (01/21/2023) Narrative Authorizing ProviderResult TypeResult StatusScanning Provider ExternalHEALTH MAINTENANCEFinal ResultPerforming OrganizationAddressCity/State/ZIP CodePhone Number MANUALLY TRANSCRIBED RESULTS from Last 3 Months or Most Recently Relevant to Health Maintenance Insurance Care Teams Team MemberRelationshipSpecialtyStart DateEnd Date Robert Hathaway DO [address] [facility], [address] [place], [place] [id number] [facility]05/10/22
--- OUTSIDE RECORDS SUMMARY | 2025-06-15 19:52 | XMS_ITS | Clinical Summary ---
Author Organization [facility] Address [address] [place], [place] [address] Care Team Providers Care Blueprint Machine Operator Name Role Phone Unavailable Primary Care Provider Unavailabl e Allergies Active AllergyReactionsCriticalityNoted DateCommentsAdhesive Tape (Rosins)Rash 02/28/2015 rash AmitriptylineMental Status Eofufa9202/28/2015 hallucinate KgxnuekbjiwAjxifspq06/13/2015tomoxetine HclOther: See PpmbrduiFtpkxe71/13/2015 palpitations Bupropion HclOther: See XdatsohlZtpmok97/13/2015 palpitations MwuzjuaTulzxJajg69/13/3061EfrkivynylfohUypftdg92/13/2015DoxycyclineOther: See JndkrljfZgumfi20/13/2015 palpitations Fish CkmyewpBjrokCgsd13/13/2015Fluticasone Propion-YbobrkgbfzPdukcvk67/13/2015 PregabalinMental Status Ryjjik1502/28/2015 hallucinate LgrgrsntqNedqutpl07/13/2015Moxifloxacin-Sod.Chloride(Iso)Nlbrpsx3302/28/2015 XfaomeiqajrZhkhczjv57/13/5522RydmktjfziKaugywj70/13/2015KetorolacOther: See Srlebizc79/13/2015 Abdominal pain OxcarbazepineOther: See YjxgnwbgLafcah90/13/2015 palpitations UizmwwkwlKalqhqyk81/13/2015Ziprasidone HclOther: See SwkzvqyrKkicos38/13/2015 palpitations Medications MedicationSigDispense QuantityRefillsLast FilledStart DateEnd DateStatus ARIPiprazole (ABILIFY) 15 mg tablet Indications:Lumbago,Left shoulder pain,History of fibromyalgia,History of COPD, History of gastroesophageal reflux (GERD),History of anxiety disorder,History of depression,History of attention deficit hyperactivity disorder (ADHD),History of bipolar disorder,Chronic, continuous use of opioidsTake 30 mg by mouth once daily. In AM Active CLOMIPRAMINE HCL (ANAFRANIL ORAL) Indications:Lumbago,Left shoulder pain,History of fibromyalgia,History of COPD, History of gastroesophageal reflux (GERD),History of anxiety disorder,History of depression,History of attention deficit hyperactivity disorder (ADHD),History of bipolar disorder,Chronic, continuous use of opioidsTake 150 mg by mouth daily at bedtime. Active Omeprazole (PRILOSEC) 40 mg capsule Indications:Lumbago,Left shoulder pain,History of fibromyalgia,History of COPD, History of gastroesophageal reflux (GERD),History of anxiety disorder,History of depression,History of attention deficit hyperactivity disorder (ADHD),History of bipolar disorder,Chronic, continuous use of opioidsTake 40 mg by mouth once daily. In AMActive Cetirizine (ZYRTEC) 10 mg cap Indications:Lumbago,Left shoulder pain,History of fibromyalgia,History of COPD, History of gastroesophageal reflux (GERD),History of anxiety disorder,History of depression,History of attention deficit hyperactivity disorder (ADHD),History of bipolar disorder,Chronic, continuous use of opioidsTake 10 mg by mouth once daily. In AMActive simvastatin (ZOCOR) 40 mg tablet Indications:Lumbago,Left shoulder pain,History of fibromyalgia,History of COPD, History of gastroesophageal reflux (GERD),History of anxiety disorder,History of depression,History of attention deficit hyperactivity disorder (ADHD),History of bipolar disorder,Chronic, continuous use of opioidsTake 40 mg by mouth daily at bedtime.Active promethazine (PHENERGAN) 25 mg tablet Indications:Lumbago,Left shoulder pain,History of fibromyalgia,History of COPD, History of gastroesophageal reflux (GERD),History of anxiety disorder,History of depression,History of attention deficit hyperactivity disorder (ADHD),History of bipolar disorder,Chronic, continuous use of opioidsTake 25 mg by mouth as needed.Active montelukast (SINGULAIR) 10 mg tablet Indications:Lumbago,Left shoulder pain,History of fibromyalgia,History of COPD, History of gastroesophageal reflux (GERD),History of anxiety disorder,History of depression,History of attention deficit hyperactivity disorder (ADHD),History of bipolar disorder,Chronic, continuous use of opioidsTake 10 mg by mouth daily at bedtime.Active dicyclomine (BENTYL) 20 mg tablet Indications:Lumbago,Left shoulder pain,History of fibromyalgia,History of COPD, History of gastroesophageal reflux (GERD),History of anxiety disorder,History of depression,History of attention deficit hyperactivity disorder (ADHD),History of bipolar disorder,Chronic, continuous use of opioidsTake 20 mg by mouth every 6 hours as needed.Active pramipexole (MIRAPEX) 1.5 mg tablet Indications:Lumbago,Left shoulder pain,History of fibromyalgia,History of COPD, History of gastroesophageal reflux (GERD),History of anxiety disorder,History of depression,History of attention deficit hyperactivity disorder (ADHD),History of bipolar disorder,Chronic, continuous use of opioidsTake 1.5 mg by mouth daily at bedtime.Active Loperamide HCl (IMODIUM) 2 mg tab Indications:Lumbago,Left shoulder pain,History of fibromyalgia,History of COPD, History of gastroesophageal reflux (GERD),History of anxiety disorder,History of depression,History of attention deficit hyperactivity disorder (ADHD),History of bipolar disorder,Chronic, continuous use of opioidsTake 2 mg by mouth twice daily as needed.Active cholecalciferol (VITAMIN D-3) 5,000 unit tab Take 5,000 Units by mouth once daily.Active thiamine (VITAMIN B-1) 100 mg tablet Take 100 mg by mouth once daily.Active calcium carbonate/vitamin D3 (CALCIUM 500 + D, D3, ORAL) Take by mouth one time a week.Active hydrOXYzine HCl (ATARAX) 50 mg tablet Take 50 mg by mouth every 6 hours as needed.Active meclizine (ANTIVERT) 25 mg tab Take 25 mg by mouth three times daily as needed.Active Active Problems ProblemNoted DateDiagnosed DateChronic, continuous use of aoujvyz5102/28/2015 History of bipolar kfqiyidb21/13/2015History of attention deficit hyperactivity disorder (ADHD)02/28/2015History of hzgcdcwuta37/13/2015History of anxiety tvonngjv44/13/2015History of gastroesophageal reflux (GERD)02/28/2015History of COPD02/28/2015History of xccldxhxzyxd96/13/2015Left shoulder pain02/28/2015 Crkybtl0902/28/2015 Family History Medical HistoryRelationCommentsAlcohol/DrugFatherCancerMotherovarianDiabetes MotherPsychiatryMotherRelationStatusCommentsBrother 1AliveBrother 2AliveBrother 3AliveFatherDeceasedMotherDeceased Social History Tobacco UseTypesPacks/DayYears UsedDateSmoking Tobacco: Every DayCigarettes Smokeless Tobacco: Never Tobacco Cessation:Ready to Q uit: No; Counseling Given: No Comments:Vaporization also. started to smoke at 12 Alcohol UseStandard Drinks/WeekCommentsNo0 (1 standard drink = 0.6 oz pure alcohol)Area Deprivation IndexAnswerDate RecordedNational Score (1-100), lower number is lower riskNot on file07/27/2020State Score (1-10), lower number is lower riskNot on file07/27/2020Data from: https://www.neighborhoodatlas.medicine.[facility].edu/. Last address used for calculationNot on file07/27/2020CommentsNoSex and Gender Information ValueDate RecordedSex Assigned at BirthNot on fileLegal OdeWsarlm81/10/2015 11:01 AM EDTGender IdentityNot on fileSexual OrientationNot on fileOccupation IndustryJob Start DateJob End Dateunemployed on SSINot on fileNot on fileNot on file Last Filed Vital Signs Vital SignReadingTime TakenCommentsBlood Bsnuwamh496/7006/30/2020 1:31 PM EST Qauqz696606/27/2021 2:16 PM JFQJqlfsztkqhc68.3 ??C (97.3 ??F)06/27/2021 2:16 PM ESTRespiratory Znxe357103/25/2015 12:58 PM EDTOxygen Sjyusmyjaf12%06/27/2021 2:16 PM ESTInhaled Oxygen Concentration--Lhbmbw88.2 kg (168 lb)06/30/2020 1:31 PM EST Ipywqm132.6 cm (5' 4 )06/30/2020 1:31 PM ESTBody Mass Index28.8406/30/2020 1:31 PM EST Plan of Treatment Health MaintenanceDue DateLast DoneCommentsAnxiety Zyxjvmsfz79/10/1988Depression Yxshzutwt52/10/1988HIV Hpnqrxqqd31/10/1988Hepatitis C Rnunrfnmx27/10/1988 DTaP,Tdap,Td Vaccine (1 - Tdap)1989Hepatitis B Vaccine (1 of 3 - 19+ 3- dose series)1989Cervical Cancer Cvvuyellz70/10/1991Mammogram Screening 2010CT Pyjzmevvklvc08/10/2015Cologuard (FIT-DNA)2015Fecal Occult Blood2015Lipid Pkzqlgmod12/10/9463Awaxbzghageip70/10/2015Pneumococcal Vaccine: 50+ (1 of 1 - PCV)2020Shingrix Vaccine (1 of 2)2020 Rfqrdbxmxbp42Colorectal Cancer Xihxtbblj64/27/2021Diabetes Zuquhxatb52/04/2019Covid-19 Vaccine (1 - 2024- season)2025 Influenza Vaccine (#1)/ Insurance
--- OUTSIDE RECORDS SUMMARY | 2025-06-15 19:52 | XMS_ITS | Encounter Summary ---
Author Organization [facility] Address [address] [place] [address] Care Team Providers Care Roll Hauler Name Role Phone Robert Hathaway MD Primary Care Provider [phone] Encounter Details DateTypeDepartmentCare Team (Latest Contact Info)Ugfongxxpjx21/27/2025Travel Social History Tobacco UseTypesPacks/DayYears UsedDateSmoking Tobacco: FormerCigarettes0.539.8 Started: 08/19/1985Passive Smoke Exposure: CurrentSmokeless Tobacco: Never Alcohol UseStandard [...] or more drinks on one occasion?Less than laiewcd8904/08/2024CommentsNoSex and Gender Information ValueDate RecordedSex Assigned at AmeqyQaxntg98/06/2024 7:44 PM EDTLegal Sex Eusdip1410/31/2022 6:42 PM EDTGender IhonmacsGhhivm16/06/2024 7:44 PM EDTSexual OrientationNot on filedocumented as of this encounter Plan of Treatment DateTypeDepartmentCare Team (Latest Contact Info)Xwqxgaxfrem50/03/2025 2:40 PM ESTOffice Visit [facility] [address] [place] [address] [place] [address] Carlos Sanchez MD [address] [facility] [address] [address] documented as of this encounter Visit Diagnoses Not on filedocumented in this encounter Care Teams Team MemberRelationshipSpecialtyStart DateEnd Date Robert Hathaway MD [address] [facility] [place] [address] PCP - GeneralFamily Medicine11/19/24documented as of this encounter
--- OUTSIDE RECORDS SUMMARY | 2025-06-15 19:52 | XMS_ITS | Encounter Summary ---
Author Organization [facility] [employer] s tem Address [id number] [address] [place] [address] Care Team Providers Care Patternator Name Role Phone Robert Hathaway Primary Care Provider + [phone] Encounter Details DateTypeDepartmentCare Team (Latest Contact Info)Mwgicjqcxmv67/20/2025Telephone [facility] [address] [place] [phone] Ramona Silva CMA Social History Tobacco UseTypesPacks/DayYears UsedDateSmoking Tobacco: FormerCigarettes0.836.5 04/15/1988 - 02/17/2025Passive Smoke Exposure: CurrentSmokeless Tobacco: Never Alcohol UseStandard Drinks/WeekCommentsNot Currently0 (1 standard drink = 0.6 oz pure alcohol)[facility] UtilitiesAnswerDate RecordedIn the past 12 months has the [employer], gas, oil, or water [employer] threatened to shut off services in your home?No07/08/2023Social Connection and Isolation PanelAnswerDate RecordedIn a typical week, how many times do you talk on the phone with family, friends, or neighbors?More than three times a week01/24/2023How often do you get together with friends or relatives?More than three times a week01/24/2023How often do you attend shinto or samaritan services?Never01/24/2023o you belong to any clubs or organizations such as shinto groups, unions, fraternal or athletic groups, or school groups?No01/24/2023How often do you attend meetings of the clubs or organizations you belong to?Never01/24/2023re you , , , , never , or living with a partner?Mcfjovadw48/08/2023UDIT-C AnswerDate RecordedQ1: How often do you have [...] like food, housing, medical care, and heating?Patient gzwualmi18/01/2025PHQ-2AnswerDate RecordedTotal Utyam476Finprimary [facility]'s hospital [place] of Occupational Health - Occupational Stress QuestionnaireAnswerDate RecordedDo you feel stress - tense, restless, nervous, or anxious, or unable to sleep at night because yourmind is troubled all the time - these days?To some xmotul9501/24/2023Exercise Vital Sign AnswerDate RecordedOn average, how many days per week do you engage in moderate to strenuous exercise (like a brisk walk)?4 days01/24/2023On average, how many minutes do you engage in exercise at this level?10 min01/24/2023RAPARE - TransportationAnswerDate RecordedIn the past 12 months, has lack of transportation kept you from medical appointments or from getting medications? Patient cggpgdur24/01/2025In the past 12 months, has lack of transportation kept you from meetings, work, or from getting things needed for daily living?Patient pqjpywxr61/01/2025Housing InstabilityAnswerDate RecordedAre you worried or concerned that in the next two months you may not have stable housing that you own, rent or stay in as a part of a household?Patient Xpzmieqn98/01/2025 ChildcareAnswerDate RecordedDo problems getting childcare provider make it difficult for you to work or study?No01/24/2023EmploymentAnswerDate RecordedDo you need help finding a local career center and/or a training program?No01/24/2023Hunger ScreeningAnswerDate RecordedWithin the past 12 months we worried whether our food would run out before we got money to buy more.Patient Hgmjpkwo74/02/2025 Within the past 12 months the food we bought just didn't last and we didn't have money to get more.Patient Ynnppxds36/02/2025Purpose - LifeAnswerDate RecordedI have a purpose and direction in my life.Strongly Agree01/24/2023Comments NoSex and Gender InformationValueDate RecordedSex Assigned at BirthNot on file Legal FckJlezsn09/06/2015 11:58 AM EDTGender IdentityNot on fileSexual OrientationNot on filedocumented as of this encounter Miscellaneous Notes * Telephone Encounter - Ramona Silva CMA - 06/07/2025 3:17 PM EDT Romeo called from [facility] states this pt had a 2 drug interaction.1.albuterol inhaler with the carvedilol. 2.Cardizem with Xanax. She was wondering if you wanted to do change anything? Phone number is [phone] this is the RN direct line. documented in this encounter Plan of Treatment DateTypeDepartmentCare Team (Latest Contact Info)Okbxxchayxe34/30/2025 1:30 PM EDTOffice Visit [facility] [address] [place] [phone] Robert Hathaway, DO [address] [place] [address] documented as of this encounter Visit Diagnoses Not on filedocumented in this encounter Additional Health Concerns AssessmentNoted TimePHQ-9 Depression Total Score: 1:22 PM EDTA Body Mass Index follow-up plan has been documented for the strhbcc4207/10/2023 3:34 PM ESTdocumented as of this encounter Care Teams Team MemberRelationshipSpecialtyStart DateEnd Date [employer] Robert Santiago DO [address] [facility] [place] [address] [facility]CP - [facility]05/10/22documented as of this encounter
--- OUTSIDE RECORDS SUMMARY | 2025-06-15 19:52 | XMS_ITS | Encounter Summary ---
Author Organization [facility] Address [address] [place] [address] Care Team Providers Care Logistics Research Engineer Name Role Phone Robert Hathaway MD Primary Care Provider + [phone] Reason for Visit * ReasonOnset DateCommentsConcerning OP PO PT; dos Encounter Details DateTypeDepartmentCare Team (Latest Contact Info)Mjqppawgtfb00/14/2025Telephone [facility] [address] [place] [phone] Gricelda Hammond, PT Concerning OP PO PT; dos 05/31 Social History Tobacco UseTypesPacks/DayYears UsedDateSmoking Tobacco: FormerCigarettes0.539.8 [...] or more drinks on one occasion?Less than ilnymka9604/08/2024CommentsNoSex and Gender Information ValueDate RecordedSex Assigned at LsktjOirzwt88/06/2024 7:44 PM EDTLegal Sex Sbaisl5410/31/2022 6:42 PM EDTGender QzazhporCrarah59/06/2024 7:44 PM EDTSexual OrientationNot on filedocumented as of this encounter Miscellaneous Notes * Telephone Encounter - Odette Jacobs - 06/01/2025 3:47 PM EDT Called to set-up OP PO PT; dos 05/31 of [employer] [place]. She said she is need of PT at home due to no mobility. Due to sx took place [place] I advised for her to contact the doctor office to discuss; she said she had notified that is what she was going to need. documented in this encounter Plan of Treatment DateTypeDepartmentCare Team (Latest Contact Info)Almnhobdxop96/03/2025 2:40 PM ESTOffice Visit [facility] [address] [facility] [address] [place] [address] Carlos Sanchez MD [address] [facility] [address] [id number] documented as of this encounter Visit Diagnoses Not on filedocumented in this encounter Care Teams Team MemberRelationshipSpecialtyStart DateEnd Date Robert Hathaway MD [address] [facility], [facility] [place] [address] PCP - GeneralFamily Medicine11/19/24documented as of this encounter
--- OUTSIDE RECORDS SUMMARY | 2025-06-15 19:52 | XMS_ITS | Encounter Summary ---
Author Organization [facility] [employer] [facility] tem Address [id number] [place] [address] Care Team Providers Care Manufacturing Scheduler Name Role Phone Robert Hathaway DO Primary Care Provider + [phone] Reason for Visit * ReasonOnset DateCommentsMed Eqiron5706/15/2025 Encounter Details DateTypeDepartmentCare Team (Latest Contact Info)Kyceuvucjut23/28/2025Refill [facility] Internal Medicine - Family Medicine [address] [place] [id number] Robert Hathaway DO [address] [place], [place] [address] Social History Tobacco UseTypesPacks/DayYears UsedDateSmoking Tobacco: FormerCigarettes0.836.5 04/15/1988 - 02/17/2025Passive Smoke Exposure: CurrentSmokeless Tobacco: Never Alcohol UseStandard Drinks/WeekCommentsNot Currently0 (1 standard drink = 0.6 oz pure alcohol)[facility] UtilitiesAnswerDate RecordedIn the past 12 months has the electric, gas, oil, or water [employer] threatened to shut off services in your home?No07/08/2023Social Connection and Isolation PanelAnswerDate RecordedIn a typical week, how many times do you talk on the phone with family, friends, or neighbors?More than three times a week01/24/2023How often do you get together with friends or relatives?More than three times a week01/24/2023How often do you attend denominational or nondenominational services?Never01/24/2023o you belong to any clubs or organizations such as denominational groups, unions, fraternal or athletic groups, or school groups?No01/24/2023How often do you attend meetings of the clubs or organizations you belong to?Never01/24/2023re you , , , , never , or living with a partner?Bsadzuoqd74/08/2023UDIT-C AnswerDate RecordedQ1: How often do you have [...] like food, housing, medical care, and heating?Patient oelblwuj69/01/2025PHQ-2AnswerDate RecordedTotal Iinse573Finval[facility] [place] of Occupational [facility] - Occupational Stress QuestionnaireAnswerDate RecordedDo you feel stress - tense, restless, nervous, or anxious, or unable to sleep at night because yourmind is troubled all the time - these days?To some btvwhh7901/24/2023Exercise Vital Sign AnswerDate RecordedOn average, how many days per week do you engage in moderate to strenuous exercise (like a brisk walk)?4 days01/24/2023On average, how many minutes do you engage in exercise at this level?10 min01/24/2023RAPARE - TransportationAnswerDate RecordedIn the past 12 months, has lack of transportation kept you from medical appointments or from getting medications? Patient gxaovmfi69/01/2025In the past 12 months, has lack of transportation kept you from meetings, work, or from getting things needed for daily living?Patient wbjfjuax14/01/2025Housing InstabilityAnswerDate RecordedAre you worried or concerned that in the next two months you may not have stable housing that you own, rent or stay in as a part of a household?Patient Trmgjgyo43/01/2025 ChildcareAnswerDate RecordedDo problems getting salesperson children's shoes make it difficult for you to work or study?No01/24/2023EmploymentAnswerDate RecordedDo you need help finding a local career center and/or a training program?No01/24/2023Hunger ScreeningAnswerDate RecordedWithin the past 12 months we worried whether our food would run out before we got money to buy more.Patient Xcgkwkaj28/02/2025 Within the past 12 months the food we bought just didn't last and we didn't have money to get more.Patient Jwrukuxh72/02/2025Purpose - LifeAnswerDate RecordedI have a purpose and direction in my life.Strongly Agree01/24/2023Comments NoSex and Gender InformationValueDate RecordedSex Assigned at BirthNot on file Legal NbdYdinpp49/06/2015 11:58 AM EDTGender IdentityNot on fileSexual OrientationNot on filedocumented as of this encounter Plan of Treatment DateTypeDepartmentCare Team (Latest Contact Info)Gdukkuhecaf48/30/2025 1:30 PM EDTOffice Visit [facility] [address] [place] [address] Robert Hathaway DO [address], [place] [address] documented as of this encounter Visit Diagnoses Not on filedocumented in this encounter Additional Health Concerns AssessmentNoted TimePHQ-9 Depression Total Score: 1:22 PM EDTA Body Mass Index follow-up plan has been documented for the muiaovx9307/10/2023 3:34 PM ESTdocumented as of this encounter Care Teams Team MemberRelationshipSpecialtyStart DateEnd Date Robert Hathaway DO [address], [facility] [place] [address] PCP - GeneralFamily Medicine05/10/22documented as of this encounter
--- OUTSIDE RECORDS SUMMARY | 2025-06-15 19:53 | XMS_ITS | CCD ---
Author Organization [facility] Care Team Providers Care Associate Professor Of Art History Name Role Phone ROBERT GIRON Primary Care Physician [phone] Valarie Herrera Unavailable VALARIE HERRERA Attending Unavailable FURLOCHARLI, DR ROBERT Santiago Primary Care Unavailable YAEL, VALARIE Admitting Unavailable NEFNICOLE DENG Consulting Unavailable YAEL VALARIE Consulting Unavailable CAROLA ., JAMAR Attending [...] ., JAMAR Attending Unavailable PAY ., DR CBAEZAS Attending Unavailable FURLONG, DR ROBERT Santiago Primary [...] REINECK, DR JEAN-PIERRE Santiago Admitting Unavailabl e RASTEKAUSHIK, LILIANA Consulting Unavailable FURLONG, DR ROBERT Santiago Primary Care Unavailable KIERSTEN ., SHARYN LEES Consulting UnavailTUTU Mclean Attending Unavailable TUTU NOLASCO Admitting Unavailable DO Robert Giron Primary Care Provider WILMA Herrera Attending Provider CARLOS SANCHEZ Referring Unavailable DRAGAN SEN Primary Care Unavailable Robert Giron MD Primary Care Provider DO Robert Giron Primary Care Provider WILMA Herrera Attending Provider Unavailable Primary Care Provider Unavailabl e Robert Giron DO Primary Care Provider Robert Giron DO Primary Care Provider Robert Giron MD Primary Care Provider Robert Giron DO Primary Care Provider [phone] Valarie Herrera APRN Attending Provider Furlong MD, Robert G Primary Care Provider [phone] REYES BORGES Attending Unavailable FURLONG, ROBERT G Referring Unavailable [...] Unavailable FURLONG, ROBERT G Primary Care Unavailable JOHANN, DUANE Young Referring Unavailable FURLONG, ROBERT G Primary [...] ROBERT G Primary Care Unavailable WILLS, DUANE Hannah Attending Unavailable FURLONG, ROBERT G Referring Unavailable FURLONG, ROBERT G Primary Care Unavailable YUDY, SEHRI E Attending Unavailable YUDY, SHERI E Attending Unavailable NONE, XXXX Referring Unavailable MD Kehinde Davalos Attending Unavailable MD Kehinde Davalos Admitting Unavailable YUDY, SHERI E Admitting Unavailable YUDY, SHERI E Attending Unavailable NONE, XXXX Referring Unavailable Cady Alva Attending Unavailable Cady Alva Admitting Unavailable FURLONG, ROBERT Referring Unavailable Andrew Eid Attending Unavailable Andrew Eid Admitting Unavailable SHMUEL LEVINE Attending Unavailable SHENDGE, ANAHIHAL Referring Unavailable NIKKI VERGARA Attending Unavailable GRICELDA HAMMOND Attending Unavailable SHENDGE, VITHAL Referring Unavailable SHMUEL LEVINE Attending Unavailable SHENDGE, VITHAL Referring Unavailable CARLOS SANCHEZ Attending Unavailable MARTIN ARANGO Attending Unavailable MARTIN ARANGO Attending Unavailable MARTIN ARANGO Attending Unavailable MARTIN ARANGO Attending Unavailable BROWNMARTIN Attending Unavailable HAMMONDRGICELDA Attending Unavailable FURLONG, ROBERT G Referring Unavailable BROWNMARTIN Attending Unavailable MARTIN ARANGO Referring Unavailable BRANDRIA BERNAL Attending Unavailable FURLONG, ROBERT G Referring Unavailable HAMMONDGRICELDA Attending Unavailable FURLONG, ROBERT G Referring Unavailable BRINKANDRIA Attending Unavailable FURLONG, ROBERT G Referring Unavailable BRINKANDRIA Attending Unavailable MARTIN ARANGO Referring Unavailable SHMUEL LEVINE Attending Unavailable MARTIN ARANGO Referring Unavailable CARLOS SANCHEZ Attending Unavailable MARTIN ARANGO Attending Unavailable JR. LERMA GEORGE C Attending Unavaila ble FURLONG, ROBERT G Referring Unavailable JR. LERMA GEORGE C Referring [...] SANCHEZ Attending Unavailable GRICELDA HAMMOND Attending Unavailable SHENSOHAIL, JOSSELINE Referring Unavailable SHMUEL LEVINE Attending Unavailable SHENDGEANAHIHAL Referring Unavailable Furlong DO, Robert Primary Care Provider [phone] Yael EXPANSION JOINT BUILDER, Valarie Attending Provider Furlong, Robert Primary Care Unavailable Yael, Valarie [...] Primary Care Unavailable JIM LERMA Admitting Unavailable FURLONG, ROBERT G Attending Unavailable FURLONG, [...] FURLONG, ROBERT G Primary Care Unavailable Furlong Robert WALSH Primary Care Provider LAN RUBI Admitting Unavailable LAN RUBI Attending Unavailable Carmina ALCANTARA Referring Unavailable SHENDGE, VITSHEA Attending Unavailable SKIE, LAN Attending Unavailable SHENDGE, VITHAL Referring Unavailable SKIE, LAN Attending Unavailable SKIE, LAN Attending Unavailable Carmina ALCANTARA Referring Unavailable SHENDGE, VITHAL Attending Unavailable JIM LERMA Referring Unavailable SHENDGE, VITHAL Referring Unavailable SHENDGE, VITHAL Referring Unavailable SHENDGE, VITHAL Referring Unavailable SHENDGE, VITHAL Referring Unavailable SKIE, LAN Attending Unavailable SHENDGE, VITHAL Attending Unavailable SHENDGE, VITHAL Admitting Unavailable SHENDGE, ANAHIHAL Attending Unavailable Daisy, Sofiya Attending Unavailable LILI, Donaldo Moreira Attending Unavailable Daisy, Sofiya Attending Unavailable En Carmen Attending Unavailable NONE, XXXX Referring Unavailable LILI, Donaldo Moreira Attending Unavailable Allergies Allergy ClassificationReported Allergen(s)Allergy TypeDate of OnsetReaction(s) Facility (20 sources)Acetaminophen / HYDROcodone; Translations: [acetaminophen-hydrocodone]Drug AllergyUnknown (qualifier value), [facility] (20 sources)Adhesive Tape; Translations: [Tape]Drug allergyEruption of skin (disorder), [facility] (20 sources)Amitriptyline; Translations: [amitriptyline]Drug Jqtbrzu02-30-3446 Vomiting (disorder), Mental Status Change, Abnormal BehaviorK[facility] (20 sources)Amoxicillin; Translations: [amoxicillin]Drug Woxwcnz56-85-4369 VomitingKettering Health [facility] (20 sources)Amoxicillin / Clavulanate; Translations: [amoxicillin-clavulanate] Drug Fgwjhxm68-98-1441Vzltblvl (disorder), GI DisturbanceKettering Health [facility] (20 sources)atomoxetine; Translations: [atomoxetine]Drug Ybukcsj49-97-1471 PalpitationsKettering Health Washington TownshipComment on above:(atomoxetine) (20 sources)buPROPion; Translations: [bupropion]Drug Vzfuiqb52-16-9863 [facility] (20 sources)Codeine; Translations: [codeine]Drug Jlbjtst36-73-4871Pazwbrii of skin (disorder), Hives, [facility] (20 sources)Dexamethasone; Translations: [dexamethasone]Drug Evrvikv48-62-2686 Menopausal flushing (finding), UnknownKettering Health Washington TownshipComment on above:(dexamethasone) (20 sources)Doxycycline; Translations: [doxycycline]Drug Thxokfm89-60-1758 Palpitations, Other: See Comments, GI DisturbanceK[facility]tering Health [facility] (20 sources)DULoxetine; Translations: [duloxetine]Drug Quvkrmx94-98-6148Afzmnor (qualifier value), hivesKettering Health Washington Township (20 sources)fluticasone; Translations: [fluticasone]Drug Ssgwucr28-83-6871 Unknown (qualifier value)[facility] (20 sources)fluticasone / salmeterol; Translations: [fluticasone-salmeterol]Drug Vmgbgnc25-41-8948Bvuirbql of skin (disorder), rash, Itching, Palpitations, UnknownKettering Health [facility] Township (20 sources)gabapentin; Translations: [gabapentin]Drug Dtufrlm25-32-8531Rkgektk (qualifier value)[facility] (20 sources)Ibuprofen; Translations: [ibuprofen]Drug Duqvmck79-89-8544Yvrffxur of skin (disorder), rash, Nausea And Vomiting, GI DisturbanceKettering Health [facility] Township (20 sources)Ketorolac; Translations: [ketorolac]Drug Oxogqds40-33-6817Bpnoznd (qualifier value), Other: See CommentsKettering Health Washington Township (20 sources)meloxicam; Translations: [meloxicam]Drug Ffbgail46-64-4483Awvnqst (qualifier value)[facility] (20 sources)Methadone; Translations: [methadone]Drug Qrtawzb69-89-1097Lwllcnfl (disorder), Nausea And Vomiting, Vomiting, GI DisturbanceKettering Health [facility] (20 sources)milnacipran; Translations: [milnacipran]Drug Hcqmpph12-98-6400 Unknown (qualifier value), Other (See Comments)[facility] (20 sources)moxifloxacin; Translations: [moxifloxacin]Drug Ubfjxgr18-13-7731 Eruption of skin (disorder), rash, Nausea Only, NauseaKettering Health Washington Township (20 sources)NITROFURANTOIN, MACROCRYSTALS / Nitrofurantoin, Monohydrate; Translations: [nitrofurantoin]Drug Jpwfcnn63-09-3626Wcask (See Comments)[facility] (20 sources)OXcarbazepine; Translations: [oxcarbazepine]Drug Hwxzoot52-73-0850 Unknown (qualifier value), Other: See Comments, GI Disturbance, Palpitations [facility] (20 sources)PARoxetine; Translations: [paroxetine]Drug Rhjooqp74-57-9721Zinjmgd (qualifier value), HivesKettering Health Washington Township (20 sources)Penicillins; Translations: [penicillins]Drug urerslw96-86-5329 Unknown (qualifier value), Hives, Vomiting, GI Disturbance, Other (See Comments) [facility] (20 sources)pregabalin; Translations: [pregabalin]Drug Wfehirx90-85-4039[place] (qualifier value), Mental Status Change, Other (See Comments), Palpitations [facility] (20 sources)rOPINIRole; Translations: [ropinirole]Drug Lxrwaqx17-51-9697Gdfmzwt mental statusKettering Health [facility] (20 sources)Shellfish; Translations: [shellfish]Drug allergyEruption of skin (disorder), rashKettering Health [facility] Township (20 sources)Sulfamethoxazole / Trimethoprim; Translations: [sulfamethoxazole-trimethoprim]Drug Pfegvrm27-76-9930Yotulkus (disorder), Hives, VomitingKettering Health Washington Township (20 sources)topiramate; Translations: [topiramate]Drug Yodhouc09-69-1384Uvixfjuo (disorder), Unknown, GI Disturbance, Other (See Comments)[facility] (20 sources)Valproate; Translations: [divalproex sodium]Drug AllergyAlopecia (disorder)[facility] (20 sources)Verapamil; Translations: [verapamil]Drug Qbtwdls71-04-1192Sjqwanvi (disorder), GI intolerance, Vomiting, GI DisturbanceKettering Health Washington Township (20 sources)ziprasidone; Translations: [ziprasidone]Drug Somtstl23-55-4979 Unknown (qualifier value), Palpitations, Other (See Comments)[facility] (5 sources)Adhesive Tape; Translations: [Adhesive tape]Allergy to substance 41-02-1449mbiiwwe dermatitisSelect Medical Specialty [facility] (20 sources)Fish Containing Products; Translations: [FISH CONTAINING PRODUCTS] Allergy to bdkmoxquy23-46-6522SnmjUnsibwxcdKing's [facility] [place] (6 sources)CodeineDrug AllergyrashNNorth Shore University Hospital [employer] Other (6 sources)torodolPropensity to adverse reactionssevere abdominal painNortPhoenixville Hospital [employer] Other (20 sources)Methocarbamol; Translations: [methocarbamol]Drug Dpdknmp85-05-5382 Unknown (qualifier value), Other (See Comments)[facility] (2 sources)Acetaminophen / HYDROcodoneDrug AllergyDunlap Memorial Hospital Repository (2 sources)AmitriptylineDrug Kgcehol07-97-2097UphDunlap Memorial Hospital Repository (2 sources)Amoxicillin / ClavulanateDrug Lxpvxac81-24-2671AeoDunlap Memorial Hospital Repository (4 sources)atomoxetine; Translations: [Strattera]Drug Xypslla82-50-8703OdmDunlap Memorial Hospital Repository (1 source)atorvastatinDrug AllergyDunlap Memorial Hospital Repository (2 sources)buPROPionDrug Fxwhfyq52-32-9659GbnDunlap Memorial Hospital Repository (2 sources)carBAMazepineDrug AllergyDunlap Memorial Hospital Repository (1 source)ClindamycinDrug Cteykgp55-99-4950Cjo [facility] Repository (2 sources)CodeineDrug Lwbsnvo45-37-7151ZadDunlap Memorial Hospital Repository (4 sources)Dexamethasone; Translations: [Decadron]Drug Jbabqvk73-30-5203Tje [facility] Repository (2 sources)DiclofenacDrug Hslqkeu93-40-0057Uqa [facility] Repository (2 sources)DoxycyclineDrug Vvrxhnn47-65-9765RzhDunlap Memorial Hospital Repository (2 sources)DULoxetineDrug Dabsgbu95-25-9350UjhDunlap Memorial Hospital Repository (20 sources)Fish derivative; Translations: [FISH DERIVED]Drug allergy (disorder) 22-74-2180YfmfoIgfDunlap Memorial Hospital Repository (2 sources)FluorometholoneDrug AllergyDunlap Memorial Hospital Repository (2 sources)fluticasone / salmeterolDrug Fcjvgya88-12-9959PveDunlap Memorial Hospital Repository (2 sources)gabapentinDrug Gtnapsb94-38-4037UwoDunlap Memorial Hospital Repository (2 sources)hydrOXYzineDrug Euuijtj04-74-2949Gcv [facility] Repository (2 sources)IbuprofenDrug Mhsqbjx43-82-2467Llc [facility] Repository (2 sources)IbuprofenDrug Xriagji22-63-0161Zld [facility] Repository (1 source)KetorolacDrug AllergyThe [facility] Rep[facility] (2 sources)KetorolacDrug Rczzrzz00-98-7486Cqo [facility] Repository (2 sources)meloxicamDrug AllergyThe [facility] (2 sources)MethadoneDrug Avlwxyn25-08-1859Oez [facility] Repository (2 sources)MethocarbamolDrug Lxigfyb05-41-2408Gst [facility] Repository (2 sources)milnacipranDrug AllergyThe [facility] (2 sources)moxifloxacinDrug Cniwnoz28-17-8614Nmk [facility] Repository (2 sources)NitrofurantoinDrug AllergyThe [facility] (2 sources)OXcarbazepineDrug Zfhmyzy19-26-0881Uwl [facility] Repository (2 sources)PARoxetineDrug AllergyThe [facility] Repository (4 sources)pregabalin; Translations: [Lyrica]Drug Pcvzrnw93-66-0078Lyl [facility] Repository (2 sources)rOPINIRoleDrug Rfguvhp66-81-1482Hhh [facility] Repository (1 source)Sulfonamides (Antibiotic)Drug allergy (disorder)The [facility] Repository (2 sources)topiramateDrug Gosygmp77-98-8505Lyp [facility] Repository (2 sources)ValproateDrug Dudqkpw55-30-5230Zlv [facility] Repository (1 source)VerapamilDrug Dkvgckv17-50-5608Fum [facility] Repository (4 sources)ziprasidone; Translations: [Geodon]Drug Hufkuxs30-82-9175Wjt [facility] Repository (10 sources)Adhesive agent; Translations: [ADHESIVE]Drug -47-5536jbbgKettering Health Troy (20 sources)ShellfishDrug -70-3248nnfx [facility] HospitalAmritassm health [facility] [employer] Other (20 sources)atomoxetineDrug Hjdhqza83-55-9008YpzkqoykfvgaMNKO Healthcare (20 sources)atomoxetine; Translations: [ATOMOXETINE HCL]Drug Goyxukc25-71-3592 Palpitations, Other: See Comments, GI DisturbanceNOMS Healthcare (20 sources)DULoxetine; Translations: [DULOXETINE HCL]Drug Rddoxtf37-67-7151IMTQ [facility] (20 sources)Eicosapentaenoate; Translations: [EICOSAPENTAENOIC ACID]Drug Allergy 65-86-3185CWOA Healthcare (20 sources)KetorolacPropensity to adverse wuhvztscs39-14-0269HAIQ Healthcare (20 sources)Ketorolac trometamol; Translations: [KETOROLAC TROMETHAMINE]Allergy to nfhvyahmh26-15-9350MgyhzXJAG Healthcare (20 sources)meloxicamDrug Lbxuobn11-92-2525DNKD Healthcare (20 sources)MethocarbamolDrug Bhmuqrr70-52-5939YVZS Healthcare (20 sources)milnacipranDrug Dwffgji88-99-0361XryelCBHT Healthcare (20 sources)NitrofurantoinDrug Ryebtpb68-06-5079Muhas, RashNOAZ Healthcare (20 sources)OxcarbazepineAllergy to rfqdtvsru47-60-0005AI intolerance, Hives, PalpitationsNOAZ Healthcare (20 sources)PregabalinAllergy to kzwydojuj47-26-1818OyonryxdsqadSYPP Healthcare (20 sources)ShellfishAllergy to muniuxhpc73-22-9607Vgzd, HivesASHLEY REGIONAL MEDICAL [facility]ENTER Healthcare (20 sources)Sulfamethoxazole; Translations: [SULFAMETHOXAZOLE]Propensity to adverse wdypeoggb30-06-7482fqamkxhjCTQD Healthcare (20 sources)TopiramateAllergy to enhwlnmnn50-72-7504EE intoleranceNOAZ Healthcare (20 sources)Valproate; Translations: [VALPROIC ACID]Drug Vonfidq25-62-2622AWYX Healthcare (20 sources)ziprasidoneDrug Stpthqg97-54-0753UujxfapmldwlBQQT Healthcare (20 sources)ziprasidone; Translations: [ZIPRASIDONE HCL]Drug Uzamanu13-54-9028 Hives, Palpitations, Other: See CommentsNOAZ Healthcare (20 sources)Amoxicillin-Pot Clavulanate; Translations: [AMOXICILLIN-POT CLAVULANATE]Drug Ixhrrmxjxsj05-25-8291Ohlwzf And VomitingNOAZ Healthcare (20 sources)Aloe-Sodium ChloridePropensity to adverse wjxmosfwk20-96-1125HKSX Healthcare (20 sources)Fish-Derived ProductsDrug Jejxuznqzau31-04-9157EPGE Healthcare (20 sources)Moxifloxacin Hcl In NaclDrug Kkqhptmunit79-32-4446REHD Healthcare (20 sources)Other; Translations: [OTHER]Propensity to adverse reactions 68-10-8589LhzzpRWVECitizens Memorial Healthcare (20 sources)Wound Dressing AdhesiveDrug Dephimy57-08-7112HvaiWGZG Healthcare (1 source)AcetaminophenDrug Zdbabgz79-29-3401wlwtNysdnrgeiMercer County Community Hospital (1 source)ClavulanateDrug Mkzlxdq25-50-6218kslvttfaXblcgxiwsThe [facility] (1 source)HYDROcodoneDrug Eocjxwp07-16-7589cdrvWntcbfluoMercer County Community Hospital (1 source)salmeterolDrug Wwtaueh27-21-0981jnhqSkwmjallvMercer County Community Hospital (20 sources)Shellfish; Translations: [SHELLFISH DERIVED]Allergy to substance 74-69-7840jfbyKuuvbtwzdOhio State East Hospital (1 source)TrimethoprimDrug Atyfaed56-41-7259jidlhjrtNfdgvkjraBucyrus Community Hospital (6 sources)Valproate; Translations: [divalproex sodium]Drug Qamwqts72-87-5846 hair [facility] (2 sources)Adhesive TapePropensity to adverse reactions to dvulweefi44-32-8969 [facility] (20 sources)buPROPion; Translations: [BUPROPION HCL]Drug Rchjuwf38-20-4605Sszzt: See Comments, GI Disturbance, PalpitationsTwin City Hospital (4 sources)moxifloxacin; Translations: [MOXIFLOXACIN-SOD.CHLORIDE(ISO)]Drug [place]md[place]uk33-48-9155KkgbbceRaidoftzn Clinic (20 sources)Aloe Extract; Translations: [ALOE]Drug Pztompa18-02-7427JDSR Healthcare (20 sources)Fish - dietaryPropensity to adverse iigxktbmx21-15-7238VtyopReynolds County General Memorial Hospital (20 sources)Iodinated Contrast Media; Translations: [IODINATED CONTRAST MEDIA] Drug Fxcrzhfimdh26-88-0731VhcmugkhlfhLPCY Healthcare (20 sources)Aloe vera preparation; Translations: [SODIUM CHLORIDE-ALOE VERA]Drug Gbuxidk32-20-4444SghEmxtyy Health System (20 sources)SulfamethoxazoleDrug Yscihuj62-07-3555Gvxmi (See Comments)[facility] (20 sources)Valproate; Translations: [DIVALPROEX]Drug Azkyzdy46-91-9261MlnYfgkzh [facility] (20 sources)ValproateDrug Cdggqkz51-69-4763XfhEhpvtz Health System (20 sources)Verapamil; Translations: [VERAPAMIL HCL]Drug Bijxdzn64-91-1817 [facility] (20 sources)Adhesive Tape-Silicones; Translations: [ADHESIVE TAPE-SILICONES] Propensity to adverse reactions to krwm19-58-8383Wekgy (See Comments), Rash [facility] Work Phone: (20 sources)Penicillin; Translations: [PENICILLIN]Drug Ioapbqy34-70-8523Ajosp (See Comments)[facility] (4 sources)Dexamethasone; Translations: [DEXAMETHASONE (PF)]Drug Allergy 01-41-0000SwsNgxgom Repository (1 source)PARoxetine; Translations: [PAROXETINE HCL]Drug Nblmzkh69-23-8547 [facility] Repository (7 sources)Sulfamethoxazole / Trimethoprim; Translations: [SULFAMETHOXAZOLE-TRIMETHOPRIM]Drug Qwswpbj58-23-6527QomFavpbp Repository (7 sources)SHELLFISH CONTAINING PRODUCTS; Translations: [SHELLFISH CONTAINING PRODUCTS]Propensity to adverse reactions to drug (disorder)96-88-8705QdiQguptc Repository (4 sources)NITROFURANTOIN MONOHYD/M-CRYST; Translations: [NITROFURANTOIN MONOHYD/M-CRYST]Propensity to adverse reactions to drug (disorder)05-25-2022 [facility] Repository (7 sources)FLUTICASONE PROPION-SALMETEROL; Translations: [FLUTICASONE PROPION-SALMETEROL]Propensity to adverse reactions to drug (disorder)10-08-2012 [facility] Repository (2 sources)Fish - dietary; Translations: [Fish]Food allergy (disorder)[facility] Repository (1 source)AmitriptylineDrug Xguebri02-93-0040RvlkwkvxzSelect [facility] (1 source)AmoxicillinDrug Oehbpgm94-47-8594XxzayhytoSelect Medical Specialty [facility] (1 source)atomoxetineDrug Wxxibzp50-83-5833BryxtiunmSelect Medical [facility]ty Hospital [facility] Rep[facility] (1 source)buPROPionDrug Iremyha06-87-9602CyyeavqpdSelect Medical [facility]ty [facility] (1 source)CodeineDrug Ffasvtn68-45-9166TwlfkinhkSelect [facility] (1 source)DexamethasoneDrug Bbqoctn16-72-7041PnytibjjiSelect Medical [facility]ty [facility] Repository (1 source)DoxycyclineDrug Ujtevcs28-36-6288Wtewbnnxp[address] [place] [address] Repository (1 source)DULoxetineDrug Efohjyj11-65-0596Leetwetge[address] [place] [address] Repository (1 source)fluticasoneDrug Adwbrla96-22-9195Xihoennry[address] [place] [address] Repository (1 source)gabapentinDrug Uqqgoir71-47-3660Yytxwykom[address] [place] [address] Repository (1 source)IbuprofenDrug Avmrhlj36-47-9408Wsfrgiavm[address] [place] [address] Repository (1 source)KetorolacDrug Mnnjmyy31-55-8502Ndfzujgti[address] [place] [address] Repository (1 source)meloxicamDrug Tpmqzuy91-37-8994Fhneuzhhx[address] [place] [address] Repository (1 source)MethadoneDrug Kbgzjil81-57-3979Oemdlndpy[address] [place] [address] Repository (1 source)milnacipranDrug Sxhterp85-06-5666Zylgpllbd[address] [place] [address] Repository (1 source)moxifloxacinDrug Lrbpooc67-16-4425Yjxzcbmhp[address] [place] [address] Repository (1 source)OXcarbazepineDrug Phwlthf93-95-4674Diandozml[address] [place] [address] Repository (1 source)PARoxetineDrug Jdnqrmm78-14-4734Yvhlvekqt[address] [place] [address] Repository (1 source)pregabalinDrug Zqoioed18-27-7755Bwkueuupt[address] [place] [address] Repository (1 source)rOPINIRoleDrug Nzasbgc39-18-3833Hgbnulbvx[address] [place] [address] Repository (1 source)SulfamethoxazoleDrug Zmpqzlp21-65-4919Erbsfwmxh[address] [place] [address] Repository (1 source)topiramateDrug Ryiwapt45-49-2184Jcqhlawba[address] [place] [address] Repository (1 source)VerapamilDrug Mbimoye62-54-9552Vlshjaslw[address] [place] [address] Repository (1 source)ziprasidoneDrug Iwggizl13-42-6121Dyornquec[address] [place] [address] Repository (1 source)Contrast media; Translations: [Contrast Dye]Propensity to adverse reactions to drug (disorder)[facility] Repository (2 sources)Fish Protein-Containing Drug ProductsDrug Rstbiffuuue19-94-3852BZSD Healthcare Medications Current Medications MedicationDrug Class(es)DatesSig (Normalized)Sig (Original)Ajovy Autoinjector 225 mg/1.5 mL subcutaneous solution (3 sources)Start: 00-70-4905jdkxcv 225 mg by subcutaneous injection every month Ajovy Autoinjector 225 mg/1.5 mL subcutaneous solution 225 mg, SubCutaneous, qMonth, Refills(s) 0, Blood glucose Start Date: 10/25/21 Status: Orderedalbuterol 0.83 mg/ml inhalation solution (20 sources)beta2-Adrenergic AgonistStart: 55-57-7088myjr 2.5 mg by inhalation every six hours as neededAlbuterol Sulfate 2.5 mg /3 mL (0.083 %) solution for nebulization Active 2.5 MG INHALATION Every 6hours as needed April 08, 2024 12:00am Complies with drug therapyStart: 06-14-2021 End: 33-50-7586xomf 1 puff(s) by inhalation every four to six hours as needed Albuterol Sulfate 90 mcg/actuation HFA aerosol inhaler Active 2 PUFF INHALATION EVERY 4-6 HOURS as needed for Shortness Of Breath 8.5 January 25, 2025 10:53am Complies with drug therapytake 1 puff(s) by inhalation in the morning, then take 1 puff(s) by inhalation in the evening, thentake 1 puff(s) by inhalation at bedtimeVentolin HFA 108 (90 Base) MCG/ACT inhaler Inhale 1 puff in the morning and 1 puff in the evening and 1 puff before bedtime. Activetake 2 puff(s) by inhalation every six hours as needed for wheezingalbuterol (PROVENTIL HFA;VENTOLIN HFA) 90 mcg/actuation inhaler Inhale 2 puffs every 6 (six) hours as needed for wheezing. Activetake 1 puff(s) by inhalation every four hours as neededProventil HFA 108 (90 Base) MCG/ACT 1 puff as needed Inhalation every 4 hrs ActiveAlbuterol Sulfate (2.5 MG/3ML) 0.083% 3 mL as needed Inhalation every 6 hrs for 30 days Activealendronic acid 70 mg oral tablet (20 sources)BisphosphonateStart: 75-69-2967zgbk 1 tablet by mouth every week alendronate (Fosamax) 70 MG tablet Indications: Osteopenia after menopause TAKE ONE TABLET BY MOUTHONCE WEEKLY 30 MINUTES BEFORE THE FIRST FOOD, BEVERAGE, OR MEDICINE OF THE DAY WITH PLAIN WATER 4 tablet 11 05/17/2025 ActiveALPRAZolam 1 mg oral tablet (20 sources)BenzodiazepineStart: 07-25-2024 End: 95-80-9569lfkz 1 tablet by mouth three times daily as needed for anxiety ALPRAZolam (XANAX) 1 mg tablet Indications: Anxiety Take 1 tablet (1 mg total) by mouth 3 (three) times a day as needed for anxiety. 90 tablet 1 04/22/2025 ActiveStart: 10-18-2071qsje 0.25 mg by mouth three times daily as needed for anxietyXanax 0.25 mg, Oral, TID, PRN as needed for anxiety, Refills(s) 0 Start Date: 07/10/21 Status: OrderedStart: 06-14-2021 End: 10-67-0791qplv 1 tablet by mouth three times dailyAlprazolam 0.5 mg tablet Discontinued 0.5 MG PO Three times daily June 14, 2021 12:00am October 12, 2024 3:56pmAnkle Air-Stirrup unit (2 sources)Start: 18-28-3729Bufqw Air-Stirrup unit Active 0 .Route 1 January 02, 2025 12:00am As directedARIPiprazole 15 mg oral tablet (20 sources)Atypical AntipsychoticStart: 11-16-2022 End: 59-83-2783fpsd 1 tablet by mouth once dailyARIPiprazole (Abilify) 15 MG tablet Take 15 mg by mouth Daily 03/27/2024 ActiveStart: 04-09-2022 End: 52-32-7935XSNNljfebwnl (Abilify) 20 MG tablet Take 15 mg by mouth in the morning. 04/09/2022 04/12/2024 Discontinued (Discontinued by another clinician) Start: 04-28-2018 End: 74-40-9711ceqc 1 tablet by mouth once dailyAripiprazole 30 mg tablet Discontinued 30 MG PO Daily June 14, 2021 12:00am October 12, 2024 3:59pmStart: 30-25-3064Vfdnfjj 30 mg oral tablet See Instructions, Reports taking 15mg daily now as prescribed by her PCP., Refills(s) 0, Other (see comment) Start Date: 04/28/18 Status: Orderedtake 2 tablets by mouth once daily in the morningARIPiprazole (ABILIFY) 15 mg tablet Indications: Lumbago , Left shoulder pain , History of fibromyalgia , History of COPD , History of gastroesophageal reflux (GERD) , History of anxiety disorder , History of depression , History of attention deficit hyperactivity disorder (ADHD) , History of bipolar disorder , Chronic, continuous use of opioids Take 30 mg by mouth once daily. In AM Activeaspirin 81 mg oral tablet (20 sources)Platelet Aggregation Inhibitor, Nonsteroidal Anti-inflammatory Drug Start: 08-74-7246dcqn 1 capsule by mouth once dailyAspirin 81 mg Capsule Active 81 MG PO Daily June 14, 2021 12:00am Complies with drug therapyatorvastatin 80 mg oral tablet (20 sources)HMG-CoA Reductase InhibitorStart: 12-27-2022 End: 08-74-6281ccgn 1 tablet by mouth in the morningatorvastatin (Lipitor) 80 MG tablet Take 80 mg by mouth in the morning. 01/03/2023 ActiveStart: 04-28-2018 take 2 tablets by mouth at bedtimeLipitor 40 mg Tab 80 mg = 2 tab(s), Oral, Bedtime, Refills(s) 0, High cholesterol Start Date: 04/28/18 Status: Ordered Repeat number: 1Start: 04-28-2018 End: 71-71-1836odnj 1 tablet by mouth once daily at bedtimeAtorvastatin 40 mg tablet Discontinued 40 MG PO Daily at bedtime June 14, 2021 12:00am October 12, 2024 3:57pmazithromycin 250 mg oral tablet (8 sources)Macrolide AntimicrobialStart: 04-09-2024 End: 93-11-9612ezgt 1 tablet by mouth once dailyazithromycin (Zithromax Z-Floyd) 250 MG tablet Indications: Paronychia, toe, right Take 1 tablet (250mg) by mouth Daily for 5 days Use as directed 6 tablet 04/09/2024 04/14/2024 Active azithromycin 250 mg Tab 5-day Dose Pack (Z-Floyd) (1 source)Start: 10-20-2022 End: 37-41-2310yqwyqklxfocx 250 mg Tab 5-day Dose Pack (Z-Floyd) = 1 packet(s), Oral, As Directed, as directed on package labeling, X 5 day(s), # 6 tab(s), Refills(s) 0, Pharmacy: [facility] #[id number] 163, cm,10/20/22 10:48:00 EST, Height/Length Dosing, 78.9, kg, 10/20/22 10:48:00 EST, Weight Dosing Start Date: 10/20/22 Stop Date: 10/25/22 Status: Orderedbenztropine mesylate 0.5 mg oral tablet (20 sources)Anticholinergic, AntihistamineStart: 21-37-6463quau 1 tablet by mouth once dailybenztropine 0.5 mg oral tablet 0.5 mg = 1 tab(s), Oral, Daily, Refills(s) 0, Other (see comment) Start Date: 09/04/21 Status: OrderedStart: 76-55-4539dred 1 tablet by mouth twice dailyBenztropine 0.5 mg tablet Active 0.5 MG PO Twice daily June 14, 2021 12:00am Complies with drug therapy bifidobacterium infantis 4 mg oral capsule (4 sources)Start: 10-29-2022 End: 73-96-6685prah 1 capsule by mouth once dailyAlign 4 mg oral capsule 4 mg = 1 cap(s), Oral, Daily, X 28 day(s), # 28 cap(s), Refills(s) 0, Pharmacy: [id number], 163, cm, 10/29/22 14:56:00 EDT, Height/Length Dosing, 77.3, kg, 10/29/22 14:56:00 EDT, Weight Dosing Start Date: 10/29/22 Stop Date: 11/26/22 Status: Orderedblood-glucose meter (TRUE METRIX GLUCOSE METER) [facility] (20 sources)Start: 67-99-9859kzrlb-glucose meter (TRUE METRIX GLUCOSE METER) [facility] Indications: Diabetes mellitus without complication ([facility]) 1 Unit by miscellaneous route in the morning. 1 each 02/24/2025 ActiveStart: 02-24-2025 End: 55-54-9993eooup-glucose meter (TRUE METRIX GLUCOSE METER) [facility] Indications: Diabetes mellitus without complication ([facility]) 1 Unit by miscellaneous route in the morning. 1 each 02/24/2025 02/24/2025 Discontinued (Reorder)Budesonide / formoterol (11 sources)Corticosteroid, beta2-Adrenergic AgonistStart: 57-58-4552Fzciladdm Inhalation, BID, Refill(s) 0, COPD Start Date: 09/04/21 Status: OrderedStart: 06-14-2021 End: 26-59-0704bavlckspdd-formoterol (Symbicort) 160-4.5 MCG/ACT inhaler Daily at bedtime 06/14/2021 04/08/2024 ActiveStart: 06-14-2021 End: 13-53-7271tiej 1 puff(s) by inhalation once daily at bedtimeBudesonide- Formoterol (Symbicort) 160-4.5 mcg/actuation HFA aerosol inhaler Discontinued 2 PUFF INHALATION Daily at bedtime June 14, 2021 12:00am April 08, 2024 10:61yq433 hr buprenorphine 0.005 mg/hr transdermal system (1 source)Partial Opioid AgonistStart: 01-15-2024 End: 39-50-5734Jqhfswy 5 mcg/hr transdermal film, extended release 1 patch(es), TransDermal, qWeek for 4 week(s), 4 patch(es), Refill(s) 0, [facility], 163, cm, 01/15/24 8:23:00 EDT, Height/Length Dosing,75.4, kg, 01/15/24 8:23:00 EDT, Weight Dosing Start Date: 01/15/24 Stop Date: 02/12/24 Status: OrderedCalcium (20 sources)Phosphate Binder, CalciumStart: 02-79-1923Ehugavj 600+D 600 / 400 mg, Oral, Daily, Refill(s) 0, Prophylaxis Start Date: 07/20/16 Status: Ordered Repeat number: 1Start: 05-73-4879Nbopmdq 600+D 600 / 400 mg, Oral, Daily, Refill(s) 0, Prophylaxis Start Date: 07/20/16 Status: Orderedcalcium carbonate 1500 mg oral tablet (20 sources)Start: 81-83-9559pliq 1 tablet by mouth twice dailycalcium carbonate 1500 (600 Ca) MG tablet Indications: Localized osteoporosis, unspecified pathological fracture presence TAKE ONE TABLET BY MOUTH TWICE A DAY 60 tablet 11 12/18/2024 ActiveStart: 34-77-3774vuzdeij carbonate (OS-LARRY) 600 mg (1,500 mg) tablet 11/06/2022 ActiveStart: 29-08-5868kvsa 1 tablet by mouth twice daily calcium carbonate 1500 (600 Ca) MG tablet Indications: Localized osteoporosis, unspecified pathological fracture presence (CMS/HCC) TAKE ONE TABLET BY MOUTH TWICE A DAY 60 tablet 11 12/19/2023 Activetake 1 tablet by mouth in the morning calcium carbonate 1500 (600 Ca) MG tablet Take 1,500 mg by mouth in the morning and 1,500 mg beforebedtime. 0 ActiveCalcium Carbonate / vitamin D3 (2 sources)calcium carbonate/vitamin D3 (CALCIUM 500 + D, D3, ORAL) Take by mouth one time a week. Activecarvedilol 12.5 mg oral tablet (20 sources)alpha-Adrenergic Laz, beta-Adrenergic BlockerStart: 03-19-2025 take 1 tablet by mouth twice dailycarvedilol 12.5 mg Tab 12.5 mg = 1 tab(s), Oral, BID, # 180 tab(s), Refills(s) 3, Pharmacy: [facility], 163, cm, 03/19/25 13:49:00 EDT, Height/Length Dosing, 71.5, kg, 03/19/25 14:01:00 EDT, Weight Dosing Start Date: 03/19/25 Status: Ordered Quantity: 180.0 Unit: tab(s) Repeat number: 4 Indications: Supraventricular tachycardia, unspecified;Start: 03-06-2022 End: 59-69-2535ajux 1 tablet by mouth in the morningcarvedilol (Coreg) 25 MG tablet Take 25 mg by mouth in the morning and 25 mg before bedtime. 01/03/2023 ActiveStart: 06-14-2021 End: 09-20-4781hklx 1 tablet by mouth twice dailyCarvedilol 12.5 mg tablet Discontinued 12.5 MG PO Twice daily June 14, 2021 12:00am October 12, 2024 3:58pmcelecoxib 200 mg oral capsule (5 sources)Nonsteroidal Anti-inflammatory DrugStart: 90-35-0543fqlj 1 capsule by mouth in the morning, then take 1 capsule by mouth at bedtimecelecoxib (CeleBREX) 200 mg capsule Take 1 capsule (200 mg total) by mouth in the morning and 1 capsule (200 mg total) before bedtime. 60 capsule 2 12/15/2024 Active Start: 06-10-2024 End: 64-69-9838ogae 1 capsule by mouth in the morning, then take 1 capsule by mouth at bedtimecelecoxib (CeleBREX) 100 mg capsule Take 1 capsule (100 mg total) by mouth in the morning and 1 capsule (100 mg total) before bedtime. 60 capsule 2 06/10/2024 09/15/2024 Discontinued (Therapy completed)cetirizine hydrochloride 10 mg oral tablet (20 sources)Histamine-1 Receptor AntagonistStart: 48-52-5077zcwa 1 tablet by mouth once dailycetirizine (ZyrTEC) 10 mg tablet TAKE ONE TABLET BY MOUTH ONCE DAILY 30 tablet 11 05/17/2025 Activetake 1 capsule by mouth once daily in the morningCetirizine (ZYRTEC) 10 mg cap Indications: Lumbago , Left shoulder pain , History of fibromyalgia ,History of COPD , History of gastroesophageal reflux (GERD) , History of anxiety disorder , Historyof depression , History of attention deficit hyperactivity disorder (ADHD) , History of bipolar disorder , Chronic, continuous use of opioids Take 10 mg by mouth once daily. In AM Active cholecalciferol 0.125 mg oral tablet (2 sources)Vitamin Dtake 1 tablet by mouth once dailycholecalciferol (VITAMIN D- 3) 5,000 unit tab Take 5,000 Units by mouth once daily. ActiveContinuous Glucose Sensor (FreeStyle Lilliam 2 Sensor) misc (20 sources)Start: 69-36-4831Cqydrrzgee Glucose Sensor (FreeStyle Lilliam 2 Sensor) misc USE DIRECTED AND CHANGE EVERY 14 DAYS 07/24/2024 Active Continuous Glucose Transmitter (Dexcom G6 transmitter) misc (20 sources)Start: 56-58-5368Hlpuvdgqio Glucose Transmitter (Dexcom G6 transmitter) misc 1 UNIT BY MISCELLANEOUS ROUTE EVERY 3 (THREE) MONTHS. 01/27/2024 Activecyclobenzaprine hydrochloride 10 mg oral tablet (1 source)Muscle RelaxantStart: 02-18-3537elcp 1 tablet by mouth at bedtime cyclobenzaprine 10 mg Tab 10 mg = 1 tab(s), Oral, Bedtime, Refills(s) 0 Start Date: 11/29/23 Status:Dtqgngr32 hr dilTIAZem hydrochloride 120 mg extended release oral capsule (20 sources)Calcium Channel BlockerStart: 69-75-5029xtji 1 capsule by mouth every twenty-four hoursDiltiazem Hcl 120 mg capsule,extended release 24hr Active 120 MG PO Once October 12, 2024 1:00amComplies with drug therapyStart: 43-75-1963jkty 1 capsule by mouth every twenty-four hoursDiltiazem Hcl 120 mg capsule,extended release 24hr Active 120 MG PO Once October 12, 2024 1:00am Start: 31-84-1040npok 1 capsule by mouth once daily, then take 1 capsule by mouth every twenty-four hoursdilTIAZem CD (Cardizem CD) 120 MG 24 hr capsule Take 120 mg by mouth Daily 03/27/2024 ActivediphenhydrAMINE hydrochloride 25 mg oral capsule (20 sources)Histamine-1 Receptor AntagonistStart: 03-50-0827hefo 1 capsule by mouth every six hours as neededdiphenhydrAMINE (BenadryL) 25 mg capsule Indications: Rash in adult Take 1 capsule (25 mg total) bymouth every 6 (six) hours as needed for itching or allergies. MAY CAUSE DROWSINESS. HOLD hydroxyzine while taking this medication. 15 capsule 01/02/2023 Activedoxepin 3 mg oral tablet (11 sources)Tricyclic AntidepressantStart: 02-25-2025 End: 00-91-1528qgrd 1 tablet by mouth at bedtimedoxepin (Silenor) 3 MG tablet Indications: Primary insomnia Take 1 tablet (3 mg) by mouth at bedtime 30 tablet 2 02/25/2025 [id number] 0.3 ml EPINEPHrine 1 mg/ml auto-injector (20 sources)alpha-Adrenergic Agonist, beta-Adrenergic Agonist, Catecholamine Start: 37-34-1516Hudhdwhhjvq 0.3 mg/0.3 mL auto-injector Active 0.3 MG SUBCUT Once as needed October 12, 2024 1:00am Complies with drug therapyStart: 84-25-7858FJSVXUYavou (EPIPEN) 0.3 mg/0.3 mL auto-injector Indications: Allergic reaction, initial encounter Inject 0.3 mL (0.3 mg total) into the appropriate muscle as needed (As needed for allergic reaction)for up to 1 dose. 1 each 07/07/2024 Activeergocalciferol 1.25 mg oral capsule (20 sources)Provitamin D2 CompoundStart: 10-25-2021 End: 59-27-2620aave 1 capsule by mouth every weekergocalciferol (DRISDOL) 1,250 mcg (50,000 unit) capsule TAKE ONE CAPSULE BY MOUTH ONCE WEEKLY 5 capsule 5 03/22/2025 ActiveStart: 96-14-0148chog 1 capsule by mouth every week ergocalciferol 50,000 intl units Cap 50,000 International_Unit = 1 cap(s), Oral, qWeek, Refills(s) 0, Prophylaxis Start Date: 10/25/21 Status: OrderedStart: 73-93-1295Cnqoutuiphaunm (Vitamin D2) 1,250 mcg (50,000 unit) capsule Active 27161 MCG PO every week June 14, 2021 12:00am every saturday Complies with drug therapyStart: 24-36-3835nqcs 93006 ug by mouth every weekErgocalciferol (Vitamin D2) Active 75186 MCG PO every week June 14, 2021 12:00am every fridaystart: 73-15-0539tejy 1 capsule by mouth onceVitamin D 50,000 intl units (1.25 mg) oral capsule 50,000 International_Unit = 1 cap(s), Oral, Saturday, Refills(s) 0, Prophylaxis Start Date: 05/07/18 Status: Orderedfamotidine 20 mg oral tablet (6 sources)Histamine-2 Receptor AntagonistStart: 10-29-2022 End: 57-23-4707sxtg 1 tablet by mouth once daily at bedtimePepcid 20 mg Tab 20 mg = 1 tab(s), Oral, Once a day (at bedtime), X 90 day(s), # 90 tab(s), Refills( s) 0, Pharmacy: [facility] #[id number], 163, cm, 10/29/22 14:56:00 EDT, Height/Length Dosing, 77.3, kg, 10/29/22 14:56:00 EDT, Weight Dosing Start Date: 10/29/22 Stop Date: 01/27/23 Status: Ordered1.5 ml fremanezumab-vfrm 150 mg/ml auto-injector (20 sources)Start: 30-22-9982Lhhchfclszpy-Vfrm (Ajovy Autoinjector) 225 mg/1.5 mL auto-injector Active 225 MG SUBCUT every monthFebruary 2024 1:00am Complies with drug therapyStart: 12-24-2023 End: 25-89-1165Gtoze 225 MG/1.5ML auto-injector Indications: Intractable chronic migraine without aura and withoutstatus migrainosus INJECT 1 PEN (225 MG) UNDER THE SKIN EVERY 30 (THIRTY) DAYS 1.5 mL 11 /10/2025 ActiveStart: 60-68-9493mphvhx 1.5 mL by subcutaneous injection every 30 daysAjovy 225 MG/1.5ML auto-injector INJECT 1.5ML SUBCUTANEOUSLY EVERY 30 DAYS 0 02/09/2023 ActiveStart: 04-62-4101Uzheg Refills(s) 0 Start Date: 09/14/22 Status: Ordered Start: 95-04-2018ucyegfcagnky-vfrm (AJOVY AUTOINJECTOR) 225 mg/1.5 mL 1.5 mL (225 mg total) every 30 (thirty) days. 10/25/2021 ActiveStart: 61-32-1100niiphc 225 mg by subcutaneous injection every monthAjovy Autoinjector 225 mg/1.5 mL subcutaneous solution 225 mg, SubCutaneous, qMonth, Refills(s) 0, Migraine headache Start Date: 10/25/21 Status: Ordered Repeat number: 1Ajovy 225 MG/1.5ML 1.5 mL Subcutaneous Activefurosemide 20 mg oral tablet (20 sources)Loop DiureticStart: 06-14-2021 End: 26-66-5797vwzw 1 tablet by mouth once dailyfurosemide (LASIX) 20 mg tablet TAKE ONE TABLET BY MOUTH ONCE DAILY 30 tablet 11 12/22/2024 Activeglimepiride 4 mg oral tablet (20 sources)SulfonylureaStart: 05-60-2562idcz 1 tablet by mouth once daily glimepiride 4 mg Tab 4 mg = 1 tab(s), Oral, Daily, Refills(s) 0, Blood glucose Start Date: 09/04/21 Status: OrderedStart: 06-14-2021 End: 38-88-9224exnu 1 tablet by mouth twice dailyGlimepiride 4 mg tablet Discontinued 4 MG PO Twice daily June 14, 2021 12:00am October 12, 2024 4:02pmisopropyl alcohol 0.7 ml/ml medicated pad (20 sources)Start: 07-97-7189zykmnba swabs (ALCOHOL PADS) pads, medicated Indications: Type 2 diabetes mellitus with hyperglycemia, without long-term current use of insulin (CMS-HCC) Apply 1 Pad topically in the morning. 40 each5 05/21/2025 ActiveStart: 10-22-2024 End: 94-54-6433uqayygn swabs (ALCOHOL PADS) pads, medicated Indications: Type 2 diabetes mellitus with hyperglycemia, without long-term current use of insulin (CMS-HCC) APPLY 1 PAD TOPICALLY EVERY 14 (FOURTEEN) DAYS. CLEAN AREA PRIOR TO PLACING SENSOR 40 each 10/22/2024 05/21/2025 Discontinued (Reorder)Start: 09-21-2024 End: 43-70-8149vsbvcqd swabs (ALCOHOL PREP PADS) pads, medicated Indications: Type 2 diabetes mellitus with hyperglycemia, without long-term current use of insulin (CMS-HCC) Apply 1 Pad topically every 14 (fourteen) days. Clean area prior to placing sensor 40 each 09/21/2024 10/22/2024 DiscontinuedStart: 05-06-2024 End: 87-19-5489ubergnj swabs (ALCOHOL PREP PADS) pads, medicated Indications: Type 2 diabetes mellitus with hyperglycemia, without long-term current use of insulin ([facility]) Apply 1 Pad topically every 14 (fourteen) days. Clean area prior to placing sensor 40 each 05/06/2024 09/19/2024 Discontinued (Reorder) Start: 90-01-4688Kdbpdqi Swabs (Global Alcohol Prep Ease) 70 % pads APPLY 1 PAD TOPICALLY EVERY 14 (FOURTEEN) DAYS. 03/10/2024 Activeammonium lactate 120 mg/ml topical lotion (20 sources)Start: 10-22-2022 End: 03-62-8620usamojid lactate (LAC-HYDRIN) 12 % lotion Apply topically 2 (two) times a day. 400 g 10/22/2022 Activelidocaine 0.05 mg/mg topical ointment (20 sources)Antiarrhythmic, Amide Local AnestheticStart: 51-29-9230urijauvdf (XYLOCAINE) 5 % ointment 12/07/2024 ActiveStart: 38-98-0449eyzfeaavs (Xylocaine) 5 % ointment Indications: Lumbar radiculopathy , PHN (postherpetic neuralgia), Diabetic peripheral neuropathy (HCC) APPLY TO THE AFFECTED AREA THREE TIMES DAILY NEEDED FOR PAIN 150 g 4 10/23/2024 ActiveStart: 02-72-9234ielzescjx (Xylocaine) 5 % ointment Indications: Lumbar radiculopathy , PHN (postherpetic neuralgia)(CMS/HCC) , Diabetic peripheral neuropathy (CMS/HCC) APPLY TO THE AFFECTED AREA(S) THREE TIMES DAILY NEEDED for moderate pain (for both feet and back-lumbar and cervicle areas) FOR 15 DAYS 240 g ActiveStart: 85-25-0930Odxnokhwx (Recticare) 5 % cream Active APPLIC TOPICAL Daily as needed October 12, 2024 1:00am Complies with drug therapyStart: 77-53-1324tqcytwhtp (Xylocaine) 5 % ointmentStart: 09-08-2024 End: 90-16-3937ZZPFJQSXG 5 % cream 10/07/2024 03/16/2025 Discontinued (Therapy completed)Start: 93-79-7334Moqcpfbbm, Anorectal, 5 % cream 08/04/2024 Active Start: 08-04-2024 End: 49-16-2078Iufdcfzdr 5 % cream Indications: PHN (postherpetic neuralgia) (CMS/HCC) Apply a dime size amount toarea BID Prn 60 g 11 08/04/2024 08/10/2024 Discontinued (Therapy completed)Start: 01-31-2024 End: 39-55-5515qpbwl 1 dose transdermal route once daily, then apply 1 dose transdermal route every twelve hourslidocaine (LIDODERM) 5 % Place 1 patch on the skin daily. Remove & Discard patch within 12 hours or as directed by 30 patch 01/31/2024 10/26/2024 Discontinued (Therapy completed)Start: 07-22-2023 lidocaine (Lidoderm) 5 % patch Indications: Diabetic peripheral neuropathy (CMS/HCC) , Lumbar radiculopathy , Lumbosacral spondylosis without myelopathy , Neck pain Apply 2 patches over 12 hours topically in the morning. Remove & discard patch within 12 hours or as directed by . 60 patch 11 07/22/2023 ActiveStart: 42-43-5485Aysuxnhi 5% Patch 1 patch(es), Topical, Daily, 7 EA, Refill(s) 0, apply 12 hours on and 12 hours off daily Start Date: 10/12/22 Status: Orderedloperamide hydrochloride 2 mg oral capsule (20 sources)Opioid AgonistStart: 12-20-2022 End: 89-23-1931regr 1 capsule by mouth every twenty-four hoursloperamide (Imodium) 2 MG capsule TAKE 2 CAPSULES BY MOUTH AFTER 1ST LOOSE STOOL AND 1 CAPSULE AFTER EACH NEXT BOWEL MOVEMENT; DO NOT EXCEED 16MG (8 CAPSULES) IN 24 HOURS 12/20/2022 ActiveStart: 10-29-2022 End: 38-23-9164Lurfxqu 2 mg oral capsule 2 mg = 1 cap(s), Oral, q6hr, PRN as needed for loose stool, not to exceed8 capsules, or 16 mg, in 24 hours, X 30 day(s), # 120 cap(s), Refills(s) 0, Pharmacy: [facility], 163, cm, 10/29/22 14:56:00 EDT, Height/Length Dosing, 77.3, kg,... Start Date: 10/29/22 Stop Date: 11/28/22 Status: OrderedStart: 38-53-7280zvvv 1 capsule by mouth twice daily as neededLoperamide 2 mg capsule Active 2 MG PO Twice daily as needed for loose stools June 14, 2021 12:00am Complies with drug therapy Start: 37-85-7158rqjl 1 tablet by mouth twice daily as needed for diarrhea Imodium A-D 2 mg oral tablet See Instructions, PRN Diarrhea, 2 mg Oral BID and 2mg after each loosestool, # 120 tab(s), Refills(s) 6, Pharmacy: [facility], 162, cm, 03/30/20 10:05:00 EDT, Height/Length Dosing, 74.2, kg, 03/30/20 10:05:00 EDT, Weight Dosing Start Date: 07/12/20 Status: Ordered Quantity: 120.0 Unit: tab(s) Repeat number: 7meclizine hydrochloride 25 mg oral tablet (20 sources)AntiemeticStart: 07-02-2022 End: 20-86-5213fwet 1 tablet by mouth three times daily as neededmeclizine (Antivert) 25 MG tablet Take 25 mg by mouth 3 (three) times a day as needed. 07/02/2022 ActiveStart: 21-55-5095zavx 25 mg by mouth four times daily as needed for dizzinessmeclizine 25 mg, Oral, QID, PRN Dizziness Start Date: 10/22/18 Status: Ordered Repeat number: 1take 1 tablet by mouth every twenty-four hours Meclizine HCl 25 MG 1 tablet as needed Orally Once a day ActivemetFORMIN hydrochloride 500 mg oral tablet (20 sources)BiguanideStart: 05-06-2023 End: 95-35-3342qwza 1 tablet by mouth at mealtimemetFORMIN (Glucophage) 500 MG tablet Take 500 mg by mouth in the morning. Take with meals. 05/06/2023 Active Start: 53-05-1226gqsc 1 tablet by mouth twice dailymetformin 500 mg Tab TAKE ONE TABLET BY MOUTH TWICE A DAY Start Date: 09/20/22 Status: Jfxcimy29 hr mirabegron 50 mg extended release oral tablet (4 sources)beta3-Adrenergic AgonistStart: 01-21-2025 End: 43-28-6168ccak 1 tablet by mouth once dailyMyrbetriq 50 mg oral tablet, extended release 50 mg = 1 tab(s), Oral, Daily, X 30 day(s), # 30 tab(s), Refills(s) 11, Pharmacy: [facility], 163, cm, 01/21/25 11:57:00 EDT, Height/Length Dosing, 70, kg, 01/21/25 11:57:00 EDT, Weight Dosing Start Date: 01/21/25 Stop Date: 01/16/26 Status: Ordered Quantity: 30.0 Unit: tab(s) Repeat number: 12montelukast 10 mg oral tablet (20 sources)Leukotriene Receptor AntagonistStart: 06-14-2021 End: 50-59-4191gosu 1 tablet by mouth once daily in the eveningmontelukast (SINGULAIR) 10 mg tablet TAKE ONE TABLET BY MOUTH DAILY IN THE EVENING 30 tablet 11 03/22/2025 Nypjwzeqqkigbr-oejh-LR-calcium &mins (THERAGRAN-M) 9 mg iron-400 mcg tablet (20 sources)tuekfkgh-pdlk-HZ-calcium &mins (THERAGRAN-M) 9 mg iron-400 mcg tablet Take 1 tablet by mouth inthe morning. Activenabumetone 500 mg oral tablet (20 sources)Nonsteroidal Anti-inflammatory DrugStart: 12-25-2024 End: 19-54-3628Vidxfmwffp 500 mg tablet Active 500 MG PO January 02, 2025 12:00am Complies with drug therapyStart: 11-28-2023 End: 29-22-4332jxvt 1 tablet by mouth twice daily as needed for painnabumetone (Relafen) 750 MG tablet TAKE 1 TABLET (750 MG TOTAL) BY MOUTH 2 (TWO) TIMES A DAY NEEDED FOR PAIN. 11/28/2023 04/14/2024 Discontinued (Med list cleanup) Start: 48-23-9675tliqebgapu 750 mg Tab Refills(s) 0 Start Date: 09/17/23 Status: Orderednaloxone (NARCAN) 4 mg/actuation spray,non-aerosol nasal spray (20 sources)Start: 45-36-5933coivribm (NARCAN) 4 mg/actuation spray,non-aerosol nasal spray Administer 1 spray (4 mg total) intoalternating nostrils as needed for opioid reversal. 2 each 1 02/24/2025 ActiveNaltrexone (8 sources)Opioid AntagonistStart: 76-46-6397gitt 1 tablet by mouth once daily naltrexone 1.5 mg oral capsule See Instructions, take one tablet daily, # 30 tab(s), Refills(s) 0, Pharmacy: [facility], 163, cm, 03/05/24 15:26:00 EDT, Height/Length Dosing, 72.8, kg, 03/05/24 15:26:00 EDT, Weight Dosing Start Date: 03/05/24 Status: Ordered Quantity: 30.0 Unit: tab(s) Repeat number: 1Start: 04-51-4551vkij 1 tablet by mouth once dailynaltrexone 1.5 mg oral capsule See Instructions, take one tablet daily, # 30 tab(s), Refills(s) 0, Pharmacy: [facility], 163, cm, 03/05/24 15:26:00 EDT, Height/Length Dosing, 72.8, kg, 03/05/24 15:26:00 EDT, Weight Dosing Start Date: 03/05/24 Status: Orderednaratriptan 2.5 mg oral tablet (20 sources)Serotonin-1b and Serotonin-1d Receptor AgonistStart: 10-12-2019 naratriptan 2.5 mg Tab 2.5 mg = 1 tab(s), Oral, As Directed, PRN Migraine headache, # 9 tab(s), Refills(s) 0 Start Date: 10/12/19 Status: Orderednebulizer accessories misc (20 sources)Start: 40-72-3567whhxzpncp accessories misc Indications: Chronic obstructive pulmonary disease, unspecified COPD type (CMS-HCC) 1 Tube by inhal. via small vol.nebulizer route every 6 (six) months. 1 each 1 01/25/2023ctive nebulizers misc (20 sources)Start: 11-80-3682yjydyxchhk misc Indications: Chronic obstructive pulmonary disease, unspecified COPD type (CMS-HCC)1 Unit by miscellaneous route every 3 (three) months. 1 each 3 05/26/2025 ActiveStart: 59-39-5756fjzypblbnf misc Indications: Chronic obstructive pulmonary disease, unspecified COPD type (CMS-HCC)1 Unit by miscellaneous route every 6 (six) months. 1 each 1 01/25/2023 ActiveNurtec ODT (20 sources)Start: 51-35-3995vged 75 mg by mouth every twenty-four hours as needed for headacheNurtec ODT 75 mg, Oral, q24hr, PRN as needed for migraine headache, Refills(s) 0 Start Date: 07/10/21 Status: Ordered Repeat number: 1 Start: 77-65-3229nwtz 75 mg by mouth every twenty-four hours as needed for headacheNurtec ODT 75 mg, Oral, q24hr, PRN as needed for migraine headache, Refills(s) 0 Start Date: 07/10/21 Status: Orderednystatin 996171 unt/ml oral suspension (20 sources)Polyene AntifungalStart: 03-24-2024 End: 16-76-3809difq 5 mL by mouth four times daily at bedtimenystatin (Mycostatin) 925104 UNIT/ML suspension TAKE 5ML BY MOUTH FOUR TIMES A DAY (MORNING, NOON, EVENING, BEDTIME) FOR 5 DAYS. 03/24/2024 ActiveStart: 06-27-2023 End: 42-43-8131ulamp 15 g topically twice dailynystatin (MYCOSTATIN) cream APPLY TO AFFECTED AREA VIA TOPICAL ROUTE TWICE A DAY 15 g 1 10/27/2024 ActiveStart: 69-85-2364oaqrhmdx (Mycostatin) 814118 UNIT/ML suspension TAKE 5ML FOUR TIMES A DAY IN AM, NOON, EVENING, ANDAT BEDTIME FOR 7 DAYS 0 06/18/2023 Activeomeprazole 40 mg delayed release oral capsule (20 sources)Proton Pump InhibitorStart: 00-31-2599gfck 40 mg by mouth once daily omeprazole 40 mg, Oral, Daily, Refills(s) 0 Start Date: 11/06/23 Status: Ordered Repeat number: 1Start: 06-22-2015 End: 29-34-7436iwgs 1 capsule by mouth once dailyomeprazole (PriLOSEC) [address] capsule Take 1 capsule every day by oral route. 08/31/2022 Activetake 1 capsule by mouth once dailyPriLOSEC 40 MG 1 capsule Orally Once a day Activeondansetron 4 mg disintegrating oral tablet (20 sources)Serotonin-3 Receptor AntagonistStart: 56-22-0783zwqauijbjfx 4 mg, SubLingual, PRN as needed for nausea/vomiting, Refills(s) 0 Start Date: 08/26/24 Status: Ordered Repeat number: 1Start: 66-76-8957jfzmyuhzbux 4 mg, SubLingual, PRN as needed for nausea/vomiting, Refills(s) 0 Start Date: 08/26/24 Status: OrderedStart: 04-27-2024 End: 78-09-9839vkya 1 tablet by mouth every eight hours for nauseaondansetron (Zofran) 4 MG tablet Indications: Nausea and vomiting, unspecified vomiting type Take 1tablet (4 mg) by mouth every 8 (eight) hours if needed for nausea or vomiting for up to 7 days 20 tablet 04/27/2024 05/04/2024 ActiveStart: 12-16-2023 End: 92-27-8587krlf 1 tablet by mouth every eight hours as needed for nausea and vomitingondansetron ODT (ZOFRAN ODT) 4 mg disintegrating tablet Dissolve 1 tablet (4 mg total) on tongue every 8 (eight) hours as needed for nausea or vomiting. 10 tablet 1 04/08/2025 ActiveStart: 10-29-2022 End: 74-16-4539ppcm 1 tablet by mouth every twelve hours as needed for nausea and vomitingondansetron (Zofran) 4 MG tablet TAKE 1 TABLET BY MOUTH EVERY 12 HOURS FOR 10 DAYS NEEDED FOR NAUSEA AND VOMITING 10/29/2022 ActiveStart: 91-61-0423amxv 1 tablet by mouth every six hours as needed for nauseaOndansetron 4 mg tablet,disintegrating Active 4 MG PO Q6H as needed for Nausea June 14, 2021 12:00am Complies with drug therapyZofran ActiveOxygen (20 sources)oxygen Inhale continuously. ActiveOxygen - for Home (20 sources)Start: 46-63-6346Urwcag - for Home 3 L/min, Nasal Cannula, Daily, Refill(s) 0, Oxygen - Continuous or Nocturnal Diagnosis: Portable 02 for physician visits, oxygen conservation Start Date: 10/25/21 Status: OrderedOxygen 2 liters (6 sources)Oxygen 2 liters 2.5 liters continuous Activepantoprazole 40 mg delayed release oral tablet (8 sources)Proton Pump InhibitorStart: 09-14-2022 End: 48-97-5596gvro 1 tablet by mouth once dailyPantoprazole [address] Tab 40 mg = 1 tab(s), Oral, Daily, X 90 day(s), # 90 tab(s), Refills(s) 0, Pharmacy: [facility], 163, cm, 09/14/22 13:14:00 EST, Height/Length Dosing, 79.6, kg, 09/14/22 13:14:00 EST, Weight Dosing Start Date: 09/14/22 Stop Date: 12/13/22 Status: Orderedpolyethylene glycol 3350 667536 mg / potassium chloride 1480 mg / sodium bicarbonate 5720 mg / sodium chloride 19144 mg powder for oral solution (11 sources)Osmotic LaxativeStart: 54-76-2960blbv 2 doses by mouth once daily NuLYTELY Aquino oral powder for reconstitution See Instructions, 2 EA, Refill(s) 0, 240 mL Oral Daily, [facility], 163, cm, 09/14/22 13:14:00 EST, Height/Length Dosing, 79.6, kg, 09/14/22 13:14:00 EST, Weight Dosing Start Date: 09/14/22 Status: OrderedStart: 51-60-9640EdASUYWJ Aquino oral powder for reconstitution See Instructions, 1 EA, Refill(s) 0, Prior to colonoscopy., [facility], 163, cm, 05/09/22 13:44:00 EDT, Height/Length Dosing, 78.2, kg, 05/09/22 13:44:00 EDT, Weight Dosing Start Date: 05/09/22 Status: Orderedpolyethylene glycol 3350 with electrolytes Oral Pwdr for Malathi 4000 mL (NuLytely) (9 sources)Start: 18-76-1260uxnp 1 dose by mouth oncepolyethylene glycol 3350 with electrolytes Oral Pwdr for Malathi 4000 mL (NuLytely) See Instructions, 1EA, Refill(s) 0, PER PHYSICIAN INSTRUCTIONS. PRIOR TO COLONOSCOPY., [facility], 163, cm, 11/07/21 12:16:00 EDT, Height/Length Dosing, 80, kg, 11/07/21 12:16:00 EDT, Weight Dosing Start Date: 11/07/21 Status: Orderedpramipexole dihydrochloride 1.5 mg oral tablet (20 sources)Nonergot Dopamine AgonistStart: 26-06-0496dxft 2 tablets by mouth once daily at bedtimePramipexole 1.5 mg tablet Active 3 MG PO Daily at bedtime June 14, 2021 12:00am Complies with drug therapyStart: 60-40-8320uzpi 1 tablet by mouth twice dailyPramipexole 1.5 mg tablet Active 1.5 MG PO Twice daily June 14, 2021 12:00am Complies with drug therapyStart: 65-03-5010iuqs 3 mg by mouth once daily at bedtimePramipexole Active 3 MG PO Daily at bedtime June 14, 2021 12:00amStart: 01-27-1580uaxa 1.5 mg by mouth three times dailyMirapex 0.5 mg 1.5 mg, Oral, TID, Refills(s) 0, Other (see comment) Start Date: 09/11/18 Status: Orderedtake 1 tablet by mouth once daily at bedtime pramipexole (MIRAPEX) 1.5 [...] bedtime. Active Prilosec 40 mg Cap-EC (3 sources)Start: 62-08-3141cyed 1 capsule by mouth once dailyPrilosec 40 mg Cap-EC 40 mg = 1 cap(s), Oral, Daily, # 30 cap(s), Refills(s) 0, Indigestion Start Date: 06/22/15 Status: Orderedpromethazine hydrochloride 25 mg oral tablet (20 sources)PhenothiazineStart: 12-73-6072bxrj 1 tablet by mouth three times daily as needed for nausea and vomitingpromethazine 25 mg Tab See Instructions, 1 tab(s) Oral TID as needed for nausea and vomiting, # 90 tab(s), Refills(s) 0, Pharmacy: [facility], 162, cm, 05/15/22 13:20:00 EDT, Height/Length D osing, 79, kg, 05/15/22 13:20:00 EDT, Weight Dosing Start Date: 09/05/22 Status: OrderedrifAXIMin 550 mg oral tablet (13 sources)Rifamycin AntibacterialStart: 60-63-6334agkm 1 tablet by mouth three times daily as needed for diarrheaRifaximin (Xifaxan) 550 mg tablet Active 550 MG PO Three times daily as needed for Diarrhea 2020 12:00am Complies with drug therapytake 1 tablet by mouth every twelve hoursXifaxan 550 MG 1 tablet Orally Twice a day Activerimegepant 75 mg disintegrating oral tablet (20 sources)Start: 07-14-2024 End: 13-39-6127Mfmobl 75 MG tablet dispersible DISSOLVE 1 TABLET ON THE TONGUE AT ONSET OF MIGRAINE NEEDED MUSTLAST 30 DAYS 07/14/2024 08/10/2024 Discontinued (Reorder)Start: 11-06-2023 End: 69-41-5735Kuleglpqct Sulfate (Nurtec) 75 MG tablet dispersible Indications: Intractable chronic migraine without aura and without status migrainosus (CMS/HCC) Place 75 mg under the tongue if needed (at the onset of migraine) 8 tablet 11 05/08/2024 06/07/2024 ActiveStart: 06-14-2021 End: 55-16-5808hrel 1 tablet by mouth once daily as neededRimegepant Sulfate (Nurtec) 75 MG tablet dispersible Indications: Intractable chronic migraine without aura and without status migrainosus Take 75 mg by mouth Daily as needed (Migraines) 8 tablet 11 02/25/2025 03/27/2025 Activesimvastatin 40 mg oral tablet (2 sources)HMG-CoA Reductase Inhibitortake 1 tablet by mouth once daily at bedtimesimvastatin (ZOCOR) 40 mg tablet Indications: Lumbago , [...] solifenacin succinate 10 mg oral tablet (20 sources)Cholinergic Muscarinic AntagonistStart: 81-95-2481dfez 1 tablet by mouth once dailysolifenacin (VESIcare) 10 MG tablet Take 10 mg by mouth Daily 03/27/2024 ActiveStart: 19-97-7934mvxl 1 tablet by mouth once dailyVesicare 10 mg Tab 10 mg = 1 tab(s), Oral, Daily, # 90 tab(s), Refills(s) 3, Pharmacy: [facility], 163, cm, 09/17/23 8:25:00 EST, Height/Length Dosing, 81, kg, 09/17/23 8:25:00 EST, Weight Dosing Start Date: 09/17/23 Status: Ordered Start: 55-50-7105lgne 1 tablet by mouth once dailyVesicare 10 mg Tab 10 mg = 1 tab(s), Oral, Daily, # 30 tab(s), Refills(s) 5, Pharmacy: [facility], 163, cm, 04/09/22 14:41:00 EDT, Height/Length Dosing, 80, kg, 04/09/22 14:41:00 EDT, Weight Dosing Start Date: 04/18/22 Status: OrderedSymbicort 160/4.5 inhalation aerosol with adapter (17 sources)Start: 99-03-4657wbct 2 puff(s) by inhalation twice dailySymbicort 160/4.5 inhalation aerosol with adapter 2 puff(s), Inhalation, BID, Refill(s) 0, Asthma Start Date: 10/25/21 Status: OrderedStart: 99-72-5587hcoz 2 puff(s) by inhalation twice dailySymbicort 160/4.5 inhalation aerosol with adapter 2 puff(s), Inhalation, BID, Refill(s) 0 Start Date: 10/25/21 Status: Orderedthiamine 100 mg oral tablet (20 sources)Start: 65-50-8899oyuu 1 tablet by mouth in the morningThiamine Mononitrate 100 MG tablet Indications: Diabetic peripheral neuropathy (HCC) TAKE 1 TABLET BY MOUTH IN THE MORNING AND IN THE EVENING 60 tablet 11 03/22/2025 ActiveStart: 06-14-2021 End: 50-80-1723iqny 1 tablet by mouth in the morning, then take 1 tablet by mouth at bedtimethiamine mononitrate, vit B1, (VITAMIN B-1, MONONITRATE,) 100 mg tablet Take 1 tablet (100 mg total) by mouth in the morning and 1 tablet (100 mg total) before bedtime. 04/30/2024 ActivetiZANidine 4 mg oral capsule (12 sources)Central alpha-2 Adrenergic AgonistStart: 10-12-2022 End: 84-23-9084cnfg 1 capsule by mouth three times dailyZanaflex 4 mg oral capsule 4 mg = 1 cap(s), Oral, TID, X 5 day(s), # 15 cap(s), Refills(s) 0 Start Date: 10/12/22 Stop Date: 10/17/22 Status: OrderedStart: 06-14-2021 End: 41-82-1890tahh 1 tablet by mouth every eight hours as needed for muscle spasmsTizanidine 4 mg tablet Discontinued 4 MG PO Q8H as needed for muscle spasms June 14, 2021 12:00am December 07, 2021 10:36amtake 1 tablet by mouth every six hours as neededtiZANidine (Zanaflex) 4 MG tablet Take 4 mg by mouth every 6 (six) hours if needed for muscle spasms 0 ActivetraMADol hydrochloride 50 mg oral tablet (20 sources)Opioid AgonistStart: 11-96-6872kwia 1 tablet by mouth every six hours as needed for paintraMADoL (ULTRAM) 50 mg tablet Indications: Complex tear of medial meniscus of left knee, sequela Take 1 tablet (50 mg total) by mouth every 6 (six) hours as needed for pain. 30 tablet 05/22/2025 ActiveStart: 05-22-2025 End: 87-30-3594hvdt 1 tablet by mouth every six hours as needed for paintraMADoL (ULTRAM) 50 mg tablet Indications: Complex tear of medial meniscus of left knee, sequela Take 1 tablet (50 mg total) by mouth every 6 (six) hours as needed for pain. 30 tablet 05/22/2025 05/20/2025 Discontinued (Reorder)Start: 05-22-2025 take 1 tablet by mouth every six hours as needed for paintraMADoL (ULTRAM) 50 mg tablet Indications: Complex tear of medial meniscus of left knee, sequela Take 1 tablet (50 mg total) by mouth every 6 (six) hours as needed for pain. 30 tablet 05/22/2025 ActiveStart: 12-01-2024 End: 48-42-9141cluv 1 tablet by mouth every eight hours as needed for pain traMADoL (ULTRAM) 50 mg tablet Indications: Complex tear of medial meniscus of left knee, sequela Take 1 tablet (50 mg total) by mouth every 8 (eight) hours as needed for pain. 20 tablet 05/17/2025 05/20/2025 DiscontinuedStart: 09-20-2023 End: 68-69-7698uwux 1 tablet by mouth three times daily as needed for pain traMADol (Ultram) 50 MG tablet Indications: Chronic bilateral low back pain with bilateral sciatica, Diabetic peripheral neuropathy (CMS/HCC) , Lumbar radiculopathy Take 1 tablet (50 mg) by mouth 3 (three) times a day as needed for severe pain for up to 7 days 21 tablet 0 09/27/2023 10/04/2023 ActiveStart: 76-90-1940CATKMJLA HYDROCHLORIDE TRAMADOL HYDROCHLORIDE Start Date: 09/17/23 Status: OrderedVentolin HFA 90 mcg/inh Aerosol (20 sources)Start: 59-41-3389cidf 2 puff(s) by inhalation four times daily Ventolin HFA 90 mcg/inh Aerosol 2 puff(s), Inhalation, QID Shortness of breath or wheezing, Refill(s) 0, COPD Start Date: 04/28/18 Status: Ordered Repeat number: 1Start: 90-94-6236yisg 2 puff(s) by inhalation four times dailyVentolin HFA 90 mcg/inh Aerosol 2 puff(s), Inhalation, QID Shortness of breath or wheezing, Refill(s) 0, COPD Start Date: 04/28/18 Status: OrderedVitamin B1 (17 sources)Start: 20-42-1055tweq 50 mg by mouth once dailyVitamin B1 50 mg, Oral, Daily, Refills(s) 0, Prophylaxis Start Date: 10/20/19 Status: OrderedVitamin B1 100 mg Tab (20 sources)Start: 80-03-6282wmxt 1 tablet by mouth once dailyVitamin B1 100 mg Tab 100 mg = 1 tab(s), Oral, Daily, Refills(s) 0, Prophylaxis Start Date: 10/25/21 Status: Ordered Repeat number: 1Start: 46-04-8323qlzo 1 tablet by mouth once dailyVitamin B1 100 mg Tab 100 mg = 1 tab(s), Oral, Daily, Refills(s) 0, Prophylaxis Start Date: 10/25/21 Status: OrderedVitamin D (6 sources)Vitamin D 50,000U ActiveZavegepant HCl (Zavzpret) 10 MG/ACT solution (5 sources)Start: 11-13-2024 End: 44-09-7169rhyg 10 mg nasal route once daily as neededZavegepant HCl (Zavzpret) 10 MG/ACT solution Indications: Intractable chronic migraine without auraand without status migrainosus (CMS/HCC) Administer 10 mg into affected nostril(s) Daily as needed (Migraine) 6 each 11/13/2024 12/13/2024 Active Completed/Discontinued Medications MedicationDrug Class(es)DatesSig (Normalized)Sig (Original)acetaminophen 325 mg / oxyCODONE hydrochloride 10 mg oral tablet (20 sources)Opioid AgonistStart: 12-17-2024 End: 49-97-7384anxr 1 tablet by mouth every six hours as needed for pain oxyCODONE-acetaminophen (PERCOCET) 10-325 mg per tablet TAKE 1 TABLET BY MOUTH EVERY 6 HOURS NEEDED for severe pain for up to 5 (FIVE) days 12/18/2024 02/24/2025 Discontinued (Therapy completed)Start: 08-26-2024 End: 76-80-4033nbcz 1 tablet by mouth every eight hours as neededoxyCODONE- acetaminophen (PERCOCET) 5-325 mg per tablet Take 1 tablet by mouth every 8 (eight) hoursas needed. Max Daily Amount: 3 tablets 08/26/2024 09/15/2024 Active Start: 67-36-3681yywq 1 tablet by mouth every four hours for painacetaminophen- oxycodone 325 mg-5 mg Tab 1 tab(s), Oral, q4hr for pain, Refill(s) 0 Start Date: 08/26/24 Status: Ordered Repeat number: 1Start: 08-03-2024 End: 39-63-1727twza 1 tablet by mouth every six hours as neededOxycodone- Acetaminophen 5-325 mg tablet Active 1 TAB PO Every 6 hours as needed October 1251:00am Complies with drug therapyStart: 04-21-2024 End: 98-66-7672okzf 1 tablet by mouth every six hours for painoxyCODONE- acetaminophen (Percocet) 10-325 MG tablet Indications: Paronychia of toe of left foot Take 1 tablet by mouth every 6 (six) hours if needed for severe pain for up to 5 days 15 tablet 04/23/2024 04/28/2024 ActiveStart: 04-09-2024 End: 45-10-9074fhnm 1 tablet by mouth every six hours for painoxyCODONE- acetaminophen (Percocet) 10-325 MG tablet Indications: Paronychia of toe of left foot Take 1 tablet by mouth every 6 (six) hours if needed for severe pain for up to 5 days 15 tablet 04/09/2024 04/14/2024 ActiveStart: 09-26-2023 End: 74-68-6263wxjw 1 tablet by mouth every six hours for painoxyCODONE- acetaminophen (Percocet) 10-325 MG tablet Indications: Hav (hallux abducto valgus), rightTake 1 tablet by mouth every 6 (six) hours if needed for severe pain for up to 5 days 15 tablet 0 09/26/2023 10/01/2023 ActiveStart: 11-07-2021 Percocet 325 mg-5 mg Tab 1 tab(s), Oral, Refill(s) 0, Pain Start Date: 11/07/21 Status: Orderedalbuterol 0.833 mg/ml / ipratropium bromide 0.167 mg/ml inhalation solution (19 sources)Anticholinergic, beta2-Adrenergic Agonist End: 33-91-9170lztn 3 mL by inhalation every four hours as neededipratropium- albuteroL (DUONEB) 0.5 mg-3 mg(2.5 mg base)/3 mL nebulizer Inhale 3 mL by nebulization every 4 (four) hours as needed. 12/15/2024 Discontinued (Therapy completed)baclofen 10 mg oral tablet (15 sources)gamma-Aminobutyric Acid-ergic AgonistStart: 01-02-2025 End: 24-61-4222xeyi 1 tablet by mouth three times dailyBaclofen 10 mg tablet Discontinued 10 MG PO Three times daily January 02, 2025 12:00am January 02, 2025 12:41pmStart: 93-69-8458xqrm 1 tablet by mouth three times dailybaclofen (LIORESAL) 10 mg tablet Take 1 tablet (10 mg total) by mouth 3 (three) times a day. 90 tablet 1 12/15/2024 ActiveStart: 12-02-2023 End: 33-41-5349gytxagcc (Lioresal) 5 MG tablet 12/02/2023 04/14/2024 Discontinued (Med list cleanup)benzonatate 100 mg oral capsule (14 sources)Non-narcotic AntitussiveStart: 07-10-2023 End: 47-91-8163ikae 1 capsule by mouth three times daily as needed for cough benzonatate (Tessalon) 100 MG capsule Take 100 mg by mouth 3 (three) times a day as needed for cough 07/10/2023 04/21/2024 Discontinued (Med list cleanup)biotin 10 mg oral capsule (20 sources)Start: 04-27-2024 End: 53-74-2565ltri 1 capsule by mouth in the morningbiotin 10 MG capsule Indications: Intractable chronic migraine without aura and without status migra inosus (CMS/HCC) , Diabetic peripheral neuropathy (CMS/HCC) Take 1 capsule (10 mg) by mouth in the morning and 1 capsule (10 mg) before bedtime. 60 capsule 11 04/27/2024 08/10/2024 Discontinued (Therapy completed)blood-glucose meter (ONETOUCH ULTRA2 METER) [facility] (18 sources)Start: 09-23-2024 End: 75-75-9318vtjrd-glucose meter (ONETOUCH ULTRA2 METER) [facility] Indications: Diabetes mellitus without complication (CMS-HCC) 1 Unit by miscellaneous route in the morning. 1 each 09/23/2024 02/24/2025 Discontinued (Therapy completed) Start: 33-39-9902ezfgm-glucose meter (ONETOUCH ULTRA2 METER) [facility] Indications: Diabetes mellitus without complication (CMS-HCC) 1 Unit by miscellaneous route in the morning. 1 each 09/23/2024 ActiveCellulose (10 sources)Start: 03-06-2024 End: 05-61-7852Omojucffe powder 03/06/2024 04/14/2024 Discontinued (Med list cleanup)Start: 49-31-3957Yclmpemyb powder 03/06/2024 Activechlorzoxazone 500 mg oral tablet (10 sources)Muscle RelaxantStart: 01-17-2024 End: 15-25-3557txmd 1 tablet by mouth four times daily as needed for muscle spasmschlorzoxazone (Parafon Forte) 500 MG tablet Take 500 mg by mouth 4 (four) times a day as needed formuscle spasms 01/17/2024 04/14/2024 Discontinued (Med list cleanup)cholestyramine resin 4000 mg powder for oral suspension (10 sources)Bile Acid SequestrantStart: 06-06-2023 End: 87-97-3643zpnvkavvoigfym (Questran) 4 GM/DOSE powder TAKE 9 G OF BULK POWDER (4 G TOTAL) BY MOUTH IN THE MORNING AND 9 G OF BULK POWDER (4 G TOTAL) IN THE EVENING. TAKE WITH MEALS. 06/06/2023 04/14/2024 Discontinued (Med list cleanup)ciprofloxacin 500 mg oral tablet (1 source)Quinolone AntimicrobialStart: 53-21-8227xtkf 1 tablet by mouth once dailyCipro 500 mg Tab 500 mg = 1 tab(s), Oral, Daily, Take 1 tablet the day before the procedure and 1 tablet after the procedure, # 2 tab(s), Refills(s) 0, Pharmacy: [facility], 163, cm, 03/19/25 13:49:00 EDT, Height/Length Dosing, 71.5, kg, 03/19/25 14:01:00 EDT, Weight Dosing Start Date: 03/29/25 Status: Ordered Quantity: 2.0 Unit: tab(s) Repeat number: 1clomiPRAMINE hydrochloride 50 mg oral capsule (20 sources)Tricyclic Antidepressant End: 21-25-4606lzic 1 capsule by mouth once dailyclomiPRAMINE (Anafranil) 50 MG capsule Take 50 mg by mouth 1 (one) time each day at the same time. 11/11/2024 Discontinuedtake 150 mg by mouth once daily at bedtimeCLOMIPRAMINE HCL (ANAFRANIL ORAL) Indications: Lumbago , Left shoulder pain , History of fibromyalgia , History of COPD , History of gastroesophageal reflux (GERD) , History of anxiety disorder , History of depression , History of attention deficit hyperactivity disorder (ADHD) , History of bipolardisorder , Chronic, continuous use of opioids Take 150 mg by mouth daily at bedtime. Active Continuous Blood Gluc [employer] ([employer] G6 political cartoonist) device (11 sources)Start: 10-24-2022 End: 85-07-7565Aphorzoemf Blood Gluc [employer] ([employer] G6 political cartoonist) device 1 UNIT YEARLY 10/24/2022 04/12/2024 Discontinued (Discontinued by another clinician) Start: 52-72-6261Pxhtkocgew Blood Gluc [employer] ([employer] G6 political cartoonist) device 1 UNIT YEARLY 10/24/2022 ActiveStart: 07-50-4457Cmhizttokr Blood Gluc [employer] ([employer] G6 political cartoonist) device 1 UNIT YEARLY 0 10/24/2022 ActiveContinuous Blood Gluc Sensor (Dexcom G6 Sensor) misc (11 sources)Start: 01-21-2023 End: 22-60-6866Ycmfhmtqiu Blood Gluc Sensor (Dexcom G6 Sensor) misc USE 1 UNIT DIRECTED AND CHANGE EVERY 10 DAYS 01/21/2023 04/12/2024 Discontinued (Discontinued by another clinician)Start: 65-23-4422Toxnwddutf Blood Gluc Sensor (Dexcom G6 Sensor) misc USE 1 UNIT DIRECTED AND CHANGE EVERY 10 DAYS 01/21/2023 ActiveStart: 42-21-4409Orblxopzuy Blood Gluc Sensor (Dexcom G6 Sensor) misc USE 1 UNIT DIRECTED AND CHANGE EVERY 10 DAYS 0 01/21/2023 Active desoximetasone 0.5 mg/ml topical cream (7 sources)CorticosteroidStart: 06-14-2021 End: 54-30-3820Kvslxbfmopmsjq 0.05 % cream Discontinued 0.05 APPLIC TOPICAL Twice daily June 14, 2021 12:00amApril 2021 10:26amdiazePAM 5 mg oral tablet (12 sources)BenzodiazepineStart: 01-22-2024 End: 36-19-3066fbjt 1 tablet by mouth every hourdiazePAM (Valium) 5 MG tablet TAKE ONE TABLET BY MOUTH ONE HOUR PRIOR TO PROCEDURE -NO DRIVING 01/22/2024 04/12/2024 Discontinued (Discontinued by another clinician)Start: 07-08-2023 End: 25-18-1921acmn 1 tablet by mouth every two hoursdiazePAM (Valium) 2 MG tablet TAKE 1 TABLET BY MOUTH 2 HOURS PRIOR TO PROCEDURE. NO DRIVING. 07/08/2023 04/12/2024 Discontinued (Discontinued by another clinician)diclofenac sodium 0.01 mg/mg topical gel (7 sources)Nonsteroidal Anti-inflammatory DrugStart: 06-14-2021 End: 12-56-2959Xvkexdmobl Sodium 1 % gel Discontinued 1 EACH TOPICAL Twice daily June 14, 2021 12:00am December 07, 2021 10:27amdicyclomine hydrochloride 20 mg oral tablet (20 sources)AnticholinergicStart: 12-02-2023 End: 02-11-8256aqftflasqdt (Bentyl) 20 MG tablet TAKE 1 TABLET BY MOUTH EVERY 6 TO 8 HOURS NEEDED FOR CRAMPS 12/02/2023 08/10/2024 Discontinued (Therapy completed)Start: 04-27-0289xdhb 1 tablet by mouth four times dailyDicyclomine 20 mg tablet Active 20 MG PO Four times daily June 14, 2021 12:00am Complies with drug therapytake 1 tablet by mouth every eight hoursDicyclomine HCl 20 MG 1 tablet Orally Three times a day Active1 ml erenumab-aooe 140 mg/ml auto-injector (9 sources)Start: 06-14-2021 End: 32-67-8989yftdac 140 mg by subcutaneous injection every monthErenumab-Aooe (Aimovig Autoinjector) 140 mg/mL auto-injector Discontinued 140 MG SUBCUT every monthJune 14, 2021 12:00am December 07, 2021 10:28am takes on the of every monthferrous sulfate (10 sources) End: 95-00-9657edrz 1 tablet by mouth in the morningFerrous Sulfate (IRON PO) Take 1 tablet by mouth in the morning. 04/14/2024 Discontinued (Med list c leanup)take 1 tablet by mouth in the morningFerrous Sulfate (IRON PO) Take 1 tablet by mouth in the morning. Activeflash glucose scanning reader (FREESTYLE LILLIAM 14 DAY READER) [facility] (20 sources)Start: 08-21-2024 End: 17-09-8302vbecb glucose scanning reader (FREESTYLE LILLIAM 14 DAY READER) [facility] Indications: Diabetes mellitus without complication (CMS-HCC) 1 Unit by miscellaneous route every 14 (fourteen) days. 2 each 5 08/21/2024 02/24/2025 Discontinued (Therapy completed)Start: 13-74-0907rklkt glucose scanning reader (FREESTYLE LILLIAM 14 DAY READER) [facility] Indications: Diabetes mellitus without complication (CMS-HCC) 1 Unit by miscellaneous route every 14 (fourteen) days. 2 each 5 08/21/2024 ActiveStart: 02-28-2024 End: 98-91-2155wjxqu glucose scanning reader (FREESTYLE LILLIAM 14 DAY READER) [facility] 1 Unit by miscellaneous route inthe morning. 1 each 02/28/2024 08/21/2024 Discontinued (Reorder)Start: 77-31-2127fedvx glucose scanning reader (FREESTYLE LILLIAM 14 DAY READER) misc 1 Unit by miscellaneous route inthe morning. 1 each 02/28/2024 Activeflash glucose sensor (FREESTYLE LILLIAM 14 DAY SENSOR) kit (20 sources)Start: 02-27-2024 End: 27-80-7383unlsr glucose sensor (FREESTYLE LILLIAM 14 DAY SENSOR) kit 1 each by miscellaneous route every 14 (fourteen) days. 6 kit 1 02/27/2024 02/24/2025 Discontinued (Therapy completed)Start: 20-84-3835zsmys glucose sensor (FREESTYLE LILLIAM 14 DAY SENSOR) kit 1 each by miscellaneous route every 14 (fourteen) days. 6 kit 1 02/27/2024 Activeglycopyrrolate 2 mg oral tablet (20 sources)Start: 03-09-2024 End: 23-43-2038hulf 1 tablet by mouth at bedtimeglycopyrrolate (Robinul) 2 MG tablet TAKE 1 TABLET (2 MG) BY MOUTH AT BEDTIME 03/27/2024 11/11/2024 DiscontinuedStart: 02-26-2024 End: 56-37-7709qrhg 2 tablets by mouth at bedtimeglycopyrrolate (Robinul) 1 MG tablet Take 2 mg by mouth at bedtime 02/26/2024 04/12/2024 Discontinued (Discontinued by another clinician)hydrOXYzine hydrochloride 25 mg oral tablet (20 sources)AntihistamineStart: 12-13-2023 End: 19-67-1136filt 1 tablet by mouth twice daily as needed for anxiety hydrOXYzine HCl (Atarax) 25 MG tablet TAKE 1 TABLET (25 MG TOTAL) BY MOUTH 2 (TWO) TIMES A DAY NEEDED FOR ANXIETY. 12/13/2023 04/14/2024 Discontinued (Med list cleanup)Start: 09-18-2023 End: 13-98-7401ixls 1 tablet by mouth oncehydrOXYzine HCl (Atarax) 10 MG tablet Indications: Allergic rhinitis due to animal hair and dander Take 1 tablet (10 mg) by mouth every 12 (twelve) hours if needed for itching 60 tablet 3 09/18/2023 10/18/2023 ActiveStart: 06-14-2021 End: 81-91-0193tqve 1 tablet by mouth four times dailyHydroxyzine Hcl 50 mg tablet Discontinued 50 MG PO Four times daily June 14, 2021 12:00am Febru patricia 2024 4:02pmStart: 79-71-1126gygz 50 mg by mouth four times daily hydrOXYzine 50 mg, Oral, QID, Refills(s) 0, Anxiety Start Date: 10/12/19 Status: Orderedtake 1 tablet by mouth every six hours as neededhydrOXYzine HCl (ATARAX) 50 mg tablet Take 50 mg by mouth every 6 hours as needed. Activeinject 1 mL by intramuscular injection every six hours as neededhydrOXYzine HCl 50 MG/ML 1 ml as needed Intramuscular every 6 hrs Activeinject 1 mL by intramuscular injection every six hours as neededhydrOXYzine HCl 50 MG/ML 1 ml as needed Intramuscular every 6 hrs Activeimipramine hydrochloride 25 mg oral tablet (19 sources)Tricyclic AntidepressantStart: 05-18-2024 End: 14-54-0386eyfy 1 tablet by mouth once dailyimipramine (TOFRANIL) 25 mg tablet Indications: Fibromyalgia Take 1 tablet (25 mg total) by mouth nightly. 30 tablet 5 05/18/2024 12/15/2024 Discontinued (Side effects)Injovy (7 sources)Start: 12-07-2021 End: 63-61-0834Suvyhy Discontinued 1 syringe IM every month December 07, 2021 12:00am October 12, 2024 4:01pmStart: 12-07-2021 End: 45-01-3657Sblfht Discontinued 1 syringe IM every month December 06, 2021 11:00pm October 12, 2024 3:01pmStart: 38-65-5221Rrcsev Active 1 syringe IM every month December 07, 2021 12:00amlemborexant 5 mg oral tablet (19 sources)Start: 07-27-2024 End: 25-53-1233ztktknqaaog 5 mg tablet Indications: Fibromyalgia One tab at bed time 30 tablet 5 07/27/2024 12/15/2024 Discontinued (Therapy completed) nortriptyline 25 mg oral capsule (20 sources)Tricyclic AntidepressantStart: 09-20-2022 End: 20-88-9854ekxxxhmkglrzb (Pamelor) 25 MG capsule Take 25 mg by mouth in the morning and 25 mg at noon and 25 mg in the evening and 25 mg before bedtime. 09/20/2022 11/11/2024 DiscontinuedStart: 06-14-2021 End: 06-85-0881pzfg 1 capsule by mouth once daily at bedtimeNortriptyline 25 mg capsule Discontinued 75 MG PO Daily at bedtime June 14, 2021 12:00am Februa 2024 4:01pmStart: 91-47-9810wknh 75 mg by mouth once daily at bedtime Nortriptyline Active 75 MG PO Daily at bedtime June 14, 2021 12:00am nystatin 584708 unt/ml / triamcinolone acetonide 1 mg/ml topical cream (11 sources)Polyene Antifungal, CorticosteroidStart: 05-08-2022 End: 43-11-2262axixvqkh-triamcinolone (Mycolog II) cream APPLY 1 APPLICATION TOPICALLY IN THE MORNING AND 1 APPLICATION AT NOON AND 1 APPLICATION IN THE EVENING AND 1 APPLICATION BEFORE BEDTIME. 05/08/2022 04/12/2024 Discontinued (Discontinued by another clinician)12 hr orphenadrine citrate 100 mg extended release oral tablet (20 sources)Muscle RelaxantStart: 07-27-2024 End: 78-85-6083hhyp 1 tablet by mouth in the morning, then take 1 tablet by mouth every twelve hours in the eveningorphenadrine (NORFLEX) 100 mg 12 hr tablet Indications: Fibromyalgia Take 1 tablet (100 mg total) by mouth in the morning. One tab at 8 PM. 30 tablet 5 07/27/2024 12/15/2024 DiscontinuedStart: 06-14-2021 End: 56-19-2215ipuq 1 tablet by mouth twice dailyOrphenadrine Citrate 100 mg tablet extended release Discontinued 100 MG PO Twice daily June 14, 2021 12:00am December 07, 2021 10:33ampilocarpine hydrochloride 5 mg oral tablet (20 sources)Cholinergic Receptor AgonistStart: 03-27-2024 End: 77-95-6449wymy 1 tablet by mouth in the morning, then take 1 tablet by mouth in the evening, then take 1 tablet by mouth at bedtimepilocarpine (Salagen) 5 MG tablet Take 5 mg by mouth in the morning and 5 mg in the evening and 5 mg before bedtime. 03/27/2024 04/21/2024 Discontinued (Discontinued by another clinician)Start: 70-00-3476wdex 1 tablet by mouth three times daily pilocarpine 5 mg Tab TAKE 1 TABLET BY MOUTH THREE TIMES DAILY., Unable to State Start Date: 09/20/22 Status: OrderedprednisoLONE acetate 10 mg/ml ophthalmic suspension (10 sources)CorticosteroidStart: 10-03-2023 End: 77-10-7379etgmdtieIXFA acetate (Pred-Forte) 1 % ophthalmic suspension INSTILL 1 DROP INTO TO RIGHT EYE FOUR TIMES A DAY FOR 7 DAYS, NEXT THREE TIMES A DAY FOR 7 DAYS, AND THEN TWICE A DAY FOR 7 DAYS Discontinued (Med list cleanup)predniSONE 10 mg oral tablet (7 sources)Start: 08-13-2023 End: 98-84-5565njjgwbFGPH (Deltasone) 10 MG tablet TAKE THREE TABLETS BY MOUTH DAILY FOR 3 DAYS, THEN TWO TABLETS FOR 3 DAYS, THEN ONE TABLET BY MOUTH FOR 3 DAYS 08/13/2023 04/12/2024 Discontinued (Discontinued by another clinician) Start: 25-33-7182woayecKWFK 10 MG 4 tabs x 3 days, 2 tabs x 3 days, 1 tab x 3 days, then stop. Orally Once a day for9 days Aug, Activeprimidone 50 mg oral tablet (20 sources)Anti-epileptic AgentStart: 11-16-2024 End: 94-30-8914rssu 0.5 tablet by mouth at bedtimeprimidone (Mysoline) 50 MG tablet Indications: Intractable chronic migraine without aura and without status migrainosus Take 0.5 tablets (25 mg) by mouth at bedtime 15 tablet 2 11/16/2024 02/25/2025 Discontinued (Therapy completed)psyllium 520 mg oral capsule (19 sources)Start: 03-10-2025 End: 97-84-2108bjxj 1 capsule by mouth at bedtimepsyllium (METAMUCIL) 0.52 gram capsule Indications: Altered bowel habits , Incontinence of feces with fecal urgency Take 1 capsule (0.52 g total) by mouth in the morning and at bedtime. 60 capsule 1 03/10/2025 05/20/2025 Discontinued (Therapy completed)QUEtiapine 50 mg oral tablet (7 sources)Atypical AntipsychoticStart: 06-14-2021 End: 68-21-2618plwc 1 tablet by mouth once daily at bedtimeQuetiapine (Seroquel) 50 mg Tablet Discontinued 50 MG PO Daily at bedtime June 14, 2021 12:00am December 07, 2021 10:35amVitamin D 50,000 intl units (1.25 mg) oral capsule (20 sources)Start: 98-92-2527ubsi 1 capsule by mouth onceVitamin D 50,000 intl units (1.25 mg) oral capsule 50,000 International_Unit = 1 cap(s), Oral, Saturday, Refills(s) 0, Prophylaxis Start Date: 05/07/18 Status: Ordered Repeat number: 1 Start: 23-31-1980hqnt 1 capsule by mouth onceVitamin D 50,000 intl units (1.25 mg) oral capsule 50,000 International_Unit = 1 cap(s), Oral, Saturday, Refills(s) 0, Prophylaxis Start Date: 05/07/18 Status: Orderedzonisamide 25 mg oral capsule (20 sources)Anti-epileptic AgentStart: 05-11-2024 End: 45-94-1892gprw 1 capsule by mouth once dailyzonisamide (Zonegran) 25 MG capsule Indications: Intractable chronic migraine without aura and without status migrainosus (CMS/HCC) , Diabetic peripheral neuropathy (CMS/HCC) Take 1 capsule (25 mg) by mouth Daily 30 capsule 11 05/11/2024 11/11/2024 Discontinued Problems Active Problems Problem ClassificationProblemDateDocumented DateEpisodic/ChronicAcquired foot deformities (20 sources)Hammer toe; Translations: [Other hammer toe(s) (acquired), right foot]Onset: 018180-63-9307AcexngkUmopiftr foot deformities (8 sources)Acquired deformity of toe of right foot; Translations: [Acquired deformities of toe(s), unspecified, right foot]41-45-5955HqnbauteNvgio myocardial infarction (20 sources)Myocardial infarction; Translations: [Acute myocardial infarction, unspecified]Onset: 257127-08-4159NvzzifjNakyoje on above:2004 Administrative/social admission (1 source)Encounter for issue of repeat prescription; Translations: [ENC FOR ISSUE REPEAT PRESCRIPTION]Onset: 23-80-8041LfbtkepoCtbiiyg disorders (20 sources)Agoraphobia; Translations: [Anxiety]Onset: ChronicAttention-deficit, conduct, and disruptive behavior disorders (20 sources)Attention deficit hyperactivity disorder; Translations: [Attention- deficit hyperactivity disorder, unspecified type]Onset: ChronicAttention-deficit, conduct, and disruptive behavior disorders (6 sources)Attention deficit hyperactivity disorder, predominantly inattentive type; Translations: [Attention-deficit hyperactivity disorder, predominantly inattentive type]18-89-4157SfjgzuzYwuytvm dysrhythmias (2 sources)Supraventricular tachycardia; Translations: [Supraventricular tachycardia]Onset: 86-15-2305SafyxlzRnplxdp obstructive pulmonary disease and bronchiectasis (20 sources)Chronic obstructive lung disease; Translations: [Chronic obstructive pulmonary disease, unspecified]Onset: 183698-06-9998IlimwhdRunlndutqip and hemorrhagic disorders (2 sources)Coagulation defect, unspecified; Translations: [Coagulation defect, unspecified]Onset: 29-04-3867FvhpbfgRncrrsws mellitus with complications (20 sources)Diabetic peripheral neuropathy; Translations: [Type 2 diabetes mellitus with diabetic polyneuropathy]Onset: 929202-25-2939HedivuhKsbssush mellitus without complication (20 sources)Diabetes mellitus; Translations: [Type 2 diabetes mellitus]Onset: 300448-58-8552ZcibsutJhdkxiprx congenital anomalies (20 sources)Finding of ayhwwnrts92-53-0220QaijsnnIhdiwzfc of white blood cells (20 sources)Leukocytosis; Translations: [Elevated white blood cell count, unspecified]Onset: 807316-73-1988HqrawrgDwuomrese of lipid metabolism (20 sources)Hypercholesterolemia; Translations: [Hyperlipidemia]Onset: 570066-56-5389KyenkekU Codes: Fall (1 source)Unspecified fall, initial encounter; Translations: [UNSPECIFIED FALL INITIAL ENCOUNTER]Onset: 99-64-1491PsxwfnhsKcxpikmdah disorders (20 sources)Gastroesophageal reflux disease; Translations: [Diffuse spasm of esophagus]Onset: 611299-92-3217WrdsozyCbmxkcigq hypertension (20 sources)Benign hypertension; Translations: [Hypertensive disorder]Onset: 982617-71-1183KumndmbZkkpylyqemlbjc ulcer (except hemorrhage) (20 sources)Gastric ulcer; Translations: [Gastric ulcer, unspecified as acute or chronic, without hemorrhage orperforation]Onset: 33-00-1085QpjlfajLulqexsmyclra symptoms and ill-defined conditions (20 sources)Incontinence; Translations: [Urge incontinence of urine]Onset: 339494-99-2872TtjpqbrXggktdsl; including migraine (20 sources)Migraine without aura; Translations: [Migraine]Onset: 04-20-2012 19-93-0150FmqnpcxDcnlk valve disorders (20 sources)Mitral valve prolapse; Translations: [Nonrheumatic mitral (valve) prolapse]Onset: 092050-82-8464KdsmtmfJwjlb disorders and dislocations; trauma-related (1 source)Unspecified internal derangement of left knee; Translations: [Unspecified internal derangement of left knee]Onset: 91-64-4419JpxsjtjQnilz disorders and dislocations; trauma-related (16 sources)Acute meniscal tear, medial; Translations: [Complex tear of medial meniscus, current injury, left knee, initial encounter]Onset: 02-24-2025 16-98-4550IdgoeytrBvgmqpjcslgtd mental health disorders (15 sources)Primary insomnia; Translations: [Primary insomnia]Onset: 02-26-2025 50-72-0954CalpmlgEymr disorders (20 sources)Bipolar disorder; Translations: [Depressive disorder]Onset: 05-01-2011 Resolved: 609717-22-5353AivtsxpTqetxpcjqac chest pain (3 sources)Chest pain, unspecified; Translations: [Chest wall pain]Onset: 242950-56-8459MnuhfmilYfoohuddrzphes (20 sources)Degenerative joint disease involving multiple joints; Translations: [Osteoarthritis]Onset: 274342-12-9810DaubuojYosnuxwsofbn (20 sources)Osteoporosis; Translations: [Age-related osteoporosis without current pathological fracture]Onset: 540209-33-6499RafhsyxWhaww acquired deformities (20 sources)Contracture of joint of right ankle; Translations: [Contracture, right ankle]Onset: 344055-16-6461GzgbjzvDpetr acquired deformities (2 sources)Varus deformity, not elsewhere classified, left knee; Translations: [Varus deformity, not elsewhereclassified, left knee]Onset: 65-54-7566Suxfljbh Other aftercare (4 sources)Encounter for change or removal of surgical wound dressing; Translations: [ENC CHG/REMOVAL SURG WOUND DRSG]Onset: 85-49-5149JxhhievdIfmig and ill-defined heart disease (20 sources)Diastolic dysfunction; Translations: [Heart disease, unspecified] Onset: 385651-17-9746LoyhhpeJlgqm and ill-defined heart disease (3 sources)Heart disease, unspecifiedChronicOther and ill-defined heart disease (3 sources)Other ill-defined heart diseases; Translations: [Heart disease, unspecified]Onset: 363379-30-2303CaetgnkAawqg bone disease and musculoskeletal deformities (20 sources)Osteochondritis dissecans of right ankle; Translations: [Osteochondritis dissecans, right ankle andjoints of right foot]Onset: 125930-74-8184NackmbmYpvwt connective tissue disease (2 sources)Presence of left artificial knee joint; Translations: [Presence of left artificial knee joint]Onset: 40-09-9114SgpdunjYkuku connective tissue disease (3 sources)Pain in left foot; Translations: [PAIN IN LEFT FOOT]Onset: 11-29-2022 EpisodicOther connective tissue disease (1 source)Myalgia, other site; Translations: [Myalgia, other site]Onset: 02-63-6613UpqlnymeOsyqk connective tissue disease (2 sources)Plantar fasciitis; Translations: [Plantar fascial fibromatosis] 80-75-3254BonoiwgdPquiv connective tissue disease (2 sources)Bone spur of right foot; Translations: [Other enthesopathy of right foot and ankle]54-42-7305ZgoafjcmQhxgn connective tissue disease (6 sources)Capsulitis of metatarsophalangeal joint of right foot; Translations: [Other enthesopathy of right foot and ankle]62-92-0048SugcrzlwOvrnd connective tissue disease (2 sources)Pain in left lower limb; Translations: [Pain in left leg]10-09-2024 EpisodicOther diseases of bladder and urethra (3 sources)Detrusor overactivity; Translations: [Overactive bladder]Onset: 01-90-7257WazxwddNawff diseases of bladder and urethra (20 sources)Overactive bladder; Translations: [Overactive bladder]Onset: 122039-70-5809XzzjsdpBnfaq diseases of kidney and ureters (1 source)Acquired renal cyst without neoplastic change; Translations: [Cyst of kidney, acquired]Onset: 70-40-6833MktfroaqSgeiu diseases of kidney and ureters (1 source)Cyst of yxltmf26-29-1852QknklmiiWnzsu gastrointestinal disorders (20 sources)Irritable bowel -64-9231BmkgdgxWgdap gastrointestinal disorders (20 sources)Irritable bowel syndrome with diarrhea; Translations: [Irritable bowel syndrome with diarrhea]Onset: 90-14-5693AayurusZzwon gastrointestinal disorders (20 sources)Alteration in bowel plmhuqbmdde62-92-1940BsponzxjFehhe gastrointestinal disorders (2 sources)Abnormal feces; Translations: [Other fecal abnormalities]Onset: 78-46-2436GrjerguqOfgrm gastrointestinal disorders (2 sources)Fecal incontinence with fecal urgency; Translations: [Full incontinence of feces]75-42-0958FsfkhkczXepli gastrointestinal disorders (1 source)Change in bowel habit; Translations: [Change in bowel habit]Onset: 03-50-7181CrjfangvGgrmo hereditary and degenerative nervous system conditions (20 sources)Restless legs; Translations: [Restless legs syndrome]Onset: 109170-23-9149MbtsjczXuqrd lower respiratory disease (4 sources)Dyspnea on exertion; Translations: [Dyspnea, unspecified]Episodic Other lower respiratory disease (3 sources)Dyspnea; Translations: [Shortness of breath]72-15-3981IyhojdmxJzzvc nervous system disorders (20 sources)Disorder of the peripheral nervous oacxrx81-03-6917PqxrrodEgxux nervous system disorders (20 sources)Tarsal tunnel syndrome; Translations: [Tarsal tunnel syndrome, unspecified lower limb]Onset: 865746-65-0542DhkbntuAroso nervous system disorders (1 source)Chronic pain; Translations: [Other chronic pain]Onset: 10-12-2022 ChronicOther nervous system disorders (2 sources)Other chronic pain; Translations: [OTHER CHRONIC PAIN]Onset: 28-38-4510XbkpqmdBtkod nervous system disorders (20 sources)Neuropathy; Translations: [Polyneuropathy, unspecified]Onset: 562145-88-9559YukkopmEdfrg nervous system disorders (20 sources)[place]ney neuroma of bilateral feet; Translations: [Lesion of plantar nerve, bilateral lower limbs]Onset: 398610-69-3605JfevzmeAolir nervous system disorders (20 sources)Difficulty walking; Translations: [Difficulty in walking, not elsewhere classified]Onset: 326624-98-8616FntxkzuQcqhm nervous system disorders (20 sources)Parkinsonism due to drug; Translations: [Other drug induced secondary parkinsonism]Onset: 879992-83-7369KlmuilyFetuk nervous system disorders (4 sources)Lesion of ulnar nerve; Translations: [Lesion of ulnar nerve, bilateral upper limbs]Onset: 724388-49-0580IffwgleAciif nervous system disorders (20 sources)Bilateral entrapment of ulnar nerves at elbow; Translations: [Lesion of ulnar nerve, bilateral upper limbs]Onset: 119139-38-3873GzxwapnIkgkn nervous system disorders (20 sources)Lesion of ulnar nerve, bilateral upper limbs; Translations: [Lesion of ulnar nerve]Onset: 276168-02-2975IuwhopaSgkjb nervous system disorders (20 sources)Carpal tunnel syndrome; Translations: [Carpal tunnel syndrome, unspecified upper limb]Onset: 236322-95-7664WleebpaYpbwa nervous system disorders (20 sources)Lesion of left ulnar nerve; Translations: [Lesion of ulnar nerve, left upper limb]Onset: 976953-10-7738WtainaxPflat nervous system disorders (7 sources)Lesion of ulnar nerve, left upper limb; Translations: [Lesion of ulnar nerve]Onset: 267985-30-1436EiehmbaVliya nervous system disorders (2 sources)Carpal tunnel syndrome of left wrist; Translations: [Carpal tunnel syndrome, left upper limb]52-04-5232FdddjvkUitwy nervous system disorders (12 sources)[place]ortons neuroma of right foot; Translations: [Lesion of plantar nerve, right lower limb]44-86-5551HcfxenxJzwkm nervous system disorders (1 source)Lesion of ulnar nerve, right upper limb; Translations: [Lesion of ulnar nerve, right upper limb]Onset: 61-95-1058GlbhflvEshkl nervous system disorders (2 sources)Carpal tunnel syndrome, left upper limb; Translations: [Carpal tunnel syndrome, left upper limb]Onset: 64-42-5454XwmllivDeuvt nervous system disorders (4 sources)Impaired cognition; Translations: [Other symptoms and signs involving cognitive functions and awareness]57-74-7583NxpfpzqbFprex non-traumatic joint disorders (3 sources)Pain in elbow; Translations: [Pain in right elbow]90-67-9506Dwxkkyoa Other non-traumatic joint disorders (1 source)Knee painOnset: 68-19-0839UgbcknqjBnnoo non-traumatic joint disorders (2 sources)Pain in right shoulder; Translations: [Pain in joint, shoulder region]52-56-8940LogqnjyuOqyfw non-traumatic joint disorders (2 sources)Ankle pain; Translations: [Pain in right ankle and joints of right foot]51-02-2682GumzalqzTmxlq nutritional; endocrine; and metabolic disorders (20 sources)Body mass index 30+ - obesity; Translations: [Obesity, unspecified] Onset: 05-21-2022 Resolved: 539537-28-4910FjjuklxLxdar skin disorders (1 source)Asteatosis cutis; Translations: [Xerosis cutis]47-63-6519CkiylvtgDglms upper respiratory disease (20 sources)Allergic rhinitis; Translations: [Allergic rhinitis, unspecified] Onset: 533753-22-7886KuzmmomZdnbtsbbb`s disease (2 sources)Parkinson`s disease; Translations: [Parkinson's disease without dyskinesia, without mention of fluctuations]Onset: 07-50-3186Apfeqdsipu and visceral atherosclerosis (20 sources)Peripheral vascular disease, unspecified; Translations: [Peripheral vascular disease, unspecified]Onset: 255721-44-0079DzpebyhTcvcrxwsxkq disorders (20 sources)Personality disorder; Translations: [Borderline personality disorder]Onset: 098317-95-9838LljpjbhBznevelhn heart disease (2 sources)Pulmonary hypertension; Translations: [Pulmonary hypertension, unspecified]00-61-2621CsyzpdbCuuvumfh codes; unclassified (20 sources)Obstructive sleep apnea syndrome; Translations: [Obstructive sleep apnea (adult) (pediatric)]Onset: 275763-45-7145FdzbrmzYlpmnnwe codes; unclassified (20 sources)Sleep apnea; Translations: [Sleep apnea, unspecified]Onset: 766554-74-9726XrxzjywSdfieiw on above:does not use cpap any longerpt uses CPAPResidual codes; unclassified (3 sources)Sleep related hypoxemia; Translations: [Sleep related hypoventilation in conditions classified elsewhere]72-71-6862EqlogofHdnrnwse codes; unclassified (1 source)Sleep related hypoventilation in conditions classified elsewhere; Translations: [Sleep related hypoventilation in conditions classified elsewhere] Onset: 94-77-5972NbruibqTcbtnbfx codes; unclassified (2 sources)Obstructive sleep apnea (adult) (pediatric); Translations: [Obstructive sleep apnea (adult) (pediatric)]Onset: 23-83-1139BwnvqwfFmbpxgpi codes; unclassified (20 sources)Chronic sest05-78-5824TzgffqzdLwyeyrwe codes; unclassified (6 sources)Tobacco dependence syndrome; Translations: [Tobacco use]Episodic Residual codes; unclassified (3 sources)Tobacco useEpisodicResidual codes; unclassified (3 sources)Family history of malignant neoplasm of digestive organ; Translations: [Family history of malignantneoplasm of digestive organs]Onset: 60-13-9444EldnkcjmTtrfqspi codes; unclassified (1 source)Acquired absence of both cervix and uterus; Translations: [ACQUIRED ABSENCE BOTH CERVIX AND UTERUS]Onset: 98-29-3767CrlizzzfJyxnnccr codes; unclassified (5 sources)Past history of procedure; Translations: [Other specified postprocedural states]04-85-2355TvxsvvbqCultreg on above:1996Residual codes; unclassified (5 sources)Tobacco user; Translations: [Tobacco use]23-47-9945QdrugkwaFbwjspub codes; unclassified (1 source)Pain; Translations: [Pain, unspecified]78-87-4547RghruvwbPgrs and subcutaneous tissue infections (20 sources)Paronychia of toe of right foot; Translations: [Cellulitis of right toe]81-71-5000TdkmmoacOugdembvdtj; intervertebral disc disorders; other back problems (20 sources)Spondylosis without myelopathy or radiculopathy, lumbosacral region; Translations: [Other intervertebral disc degeneration, lumbar region]Onset: 193883-59-7160VzroexpPzyejodra-tktscmh disorders (20 sources)Smoker; Translations: [Opioid dependence]Onset: 10-10-2021 Resolved: 678105-80-5466MdluatmYevtwtx on above:Added secondary to documentation in Social History.Unclassified (20 sources)Finding of sensation of fcqrowt48-43-0955Cjtukslbikgw (20 sources)Bezoar in -66-9379Hffjynvwebgd (20 sources)Patient encounter -72-6567Jffkakzxibvb (3 sources)LOW BACK PAIN, UNSPECIFIED; Translations: [LOW BACK PAIN, UNSPECIFIED]Onset: 96-69-8239Rklahecswhqi (1 source)PAIN TOP OF STOMACHOnset: 70-03-1861Afkmmnnjspxr (1 source)Shoulder InjuryOnset: 34-78-2798Nvvsqmwndpth (1 source)controlledOnset: 39-44-7878Xazmnmr tract infections (1 source)Urinary tract infectious disease; Translations: [Urinary tract infection, site not specified]Onset: 29-69-9069FbutintnHxoxw infection (1 source)Postherpetic neuralgia; Translations: [Other postherpetic nervous system involvement]18-60-8532Chglwdba Past or Other Problems Problem ClassificationProblemDateDocumented DateEpisodic/ChronicAbdominal pain (20 sources)Flank pain; Translations: [Unspecified abdominal pain]Onset: 723395-55-1725UxtzsvfwFthcnbdy reactions (1 source)Allergy, unspecified, initial encounter; Translations: [Allergy, unspecified, initial encounter]Onset: 39-91-7952EdbyvhrhQmjvagta of urinary tract (20 sources)History of calculus of kidney; Translations: [Personal history of urinary calculi]Onset: 528226-71-9736PlzflchtTmcsikl dysrhythmias (1 source)Tachycardia, unspecified; Translations: [TACHYCARDIA UNSPECIFIED] Onset: 21-24-1056ByxvmjofMfbltnzdgp associated with dizziness or vertigo (20 sources)Dizziness; Translations: [Vertigo]Onset: EpisodicDiseases of mouth; excluding dental (20 sources)Xerostomia; Translations: [Disturbances of salivary secretion]Onset: 698942-41-4454LldteffbCifhyvvbh of teeth and jaw (20 sources)Arthralgia of temporomandibular joint; Translations: [Arthralgia of temporomandibular joint, unspecified side]Onset: 458384-78-7962Fgpchtlv Epilepsy; convulsions (2 sources)Unspecified convulsions; Translations: [Unspecified convulsions] Onset: 02-65-0557OodxmbqcNddbynipgy disorders (20 sources)Dilatation of esophagus; Translations: [Dilatation of esophagus] Onset: 981399-32-1000YyxlrzxgJwxylfh on above:due to esophageal stricture Fluid and electrolyte disorders (20 sources)Hyponatremia; Translations: [Hypo-osmolality and hyponatremia]Onset: 297906-02-1052AioossilVdnerqgn of upper limb (2 sources)Displaced fracture of coracoid process, right shoulder, subsequent encounter for fracture with nonunion; Translations: [3-part fracture of surgical neck of right humerus, subsequent encounter for fracture with routine healing] Onset: 04-07-8542KplrueowDtincabuf and duodenitis (20 sources)Gastritis; Translations: [Gastritis, unspecified, without bleeding] Onset: 467714-77-0128DibjxzouKghjvfqywvlrg symptoms and ill-defined conditions (20 sources)Dysuria; Translations: [Incomplete emptying of bladder]Onset: 869052-36-0646RjzyhduwWnfpfqmp; including migraine (20 sources)Headache; Translations: [Headache]Onset: EpisodicHemorrhoids (20 sources)Hemorrhoids; Translations: [Unspecified hemorrhoids]Onset: 334371-14-0655FmzddkznWvapgzvfjvlsw and screening for infectious disease (20 sources)Rheumatoid factor positive; Translations: [Other specified abnormal immunological findings in serum]Onset: 632334-56-4781IsxtgyjdWuztn disorders and dislocations; trauma-related (1 source)Other tear of medial meniscus, current injury, right knee, subsequent encounter; Translations: [OTHTEAR MED MENSC CURR RT KNEE SUB]Onset: 06-11-2022 EpisodicLymphadenitis (1 source)Generalized enlarged lymph nodes; Translations: [Generalized enlarged lymph nodes]Onset: 55-82-1160ZxtmjfbkMjjv disorders (20 sources)Mood disordersOnset: 04-30-2024 Resolved: 389995-71-8541Jrcejdl (20 sources)Candidal intertrigo; Translations: [Candidiasis of skin and nail] Onset: 261168-10-0259UvyknpuaIycotw and vomiting (20 sources)Vomiting; Translations: [Nausea and vomiting]Onset: 10-02-2022 13-19-1740CamcdnobCwbffzegjgta breast conditions (4 sources)Unspecified lump in the left breast, lower outer quadrant; Translations: [UNS LUMP IN LT BREAST LW OUTR QUAD]Onset: 57-33-0809SpedsvqhFevnk acquired deformities (20 sources)Deformity of metatarsal; Translations: [Unspecified acquired deformity of unspecified lower leg]Onset: 060680-89-0497CryevbvsOhzpg aftercare (3 sources)Other termite inspector (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) drug therapy; Translations: [OTH MCFP CURRENT DRUG THERAPY]Onset: 55-75-3916WafgdibhSsdyr aftercare (20 sources)Patient encounter status; Translations: [Encounter for therapeutic drug level monitoring]Onset: 114953-72-1740OsjykgifBdzjj aftercare (2 sources)Encounter for therapeutic drug level monitoring; Translations: [Encounter for therapeutic drug level monitoring]Onset: 04-70-2036JywizimhWtpyv and unspecified benign neoplasm (20 sources)Polyp of colon; Translations: [Polyp of colon]Onset: 02-25-2023 20-52-9137FopsqbisRjrxc and unspecified benign neoplasm (1 source)Polyp of colon; Translations: [Polyp of colon]Onset: 06-06-2023 EpisodicOther bone disease and musculoskeletal deformities (1 source)Other specified disorders of bone density and structure, unspecified site; Translations: [OTH D/O BONE DEN STRUCT UNS SITE]Onset: 12-42-2371Lvnqrdtb Other bone disease and musculoskeletal deformities (4 sources)Chondromalacia, right knee; Translations: [CHONDROMALACIA RIGHT KNEE] Onset: 93-91-5899NuewxswkFproj bone disease and musculoskeletal deformities (20 sources)Osteopenia; Translations: [Other specified disorders of bone density and structure, unspecified thigh]Onset: 121257-08-4571RpnyhljxXaprg connective tissue disease (20 sources)Fibromyositis; Translations: [Fibromyalgia]Onset: 10-23-2013 11-06-0935TaduhqkpGjzvb connective tissue disease (20 sources)Fibromyalgia; Translations: [Fibromyalgia]Onset: 04-12-2020 40-38-4939EcbfitycLbpvn connective tissue disease (3 sources)Fibromyalgia; Translations: [FIBROMYALGIA]Onset: 12-98-3803Lbcfucnh Other connective tissue disease (4 sources)Impingement syndrome of right shoulder; Translations: [IMPINGEMENT SYNDROME RIGHT SHOULDER]Onset: 39-02-6733BsrgcfysTsplk connective tissue disease (20 sources)Bicipital tenosynovitis; Translations: [Bicipital tendinitis, unspecified shoulder]Onset: 694373-12-9409WcebaalfXbzmp connective tissue disease (20 sources)Pain in limb; Translations: [Pain in unspecified limb]Onset: 448083-18-7578UaryppohIwacs connective tissue disease (20 sources)Bilateral plantar fasciitis; Translations: [Plantar fascial fibromatosis]Onset: 659505-78-5320XbjwtygdSllai connective tissue disease (20 sources)Pain in bilateral legs; Translations: [Pain in right leg]Onset: 696598-62-8978XcfnvtovIizdz connective tissue disease (20 sources)H/O: musculoskeletal disease; Translations: [Personal history of other diseases of the musculoskeletal system and connective tissue]Onset: 627264-49-1279EwxyhkedUmbbq connective tissue disease (20 sources)Disorder of bursa of shoulder region; Translations: [Bursopathy, unspecified]Onset: 024990-01-3572AmdnpnunLuroa connective tissue disease (20 sources)Spasm of cervical paraspinous muscle; Translations: [Other muscle spasm]Onset: 673598-93-0015ZllkpqrjQvauu connective tissue disease (20 sources)Enthesopathy of elbow region; Translations: [Other enthesopathies, not elsewhere classified]Onset: 663095-23-7608VguhrimtMkdis connective tissue disease (4 sources)Pain of toe of left foot; Translations: [Pain in left toe(s)] 36-43-5693DgdemhtkKihla connective tissue disease (4 sources)Pain of toe of right foot; Translations: [Pain in right toe(s)] 31-92-9905AudylnssUiqpi connective tissue disease (20 sources)Myofascial pain syndrome; Translations: [Myalgia, other site]Onset: 292361-47-7870VnuzppyiBqmbf connective tissue disease (2 sources)Muscle weakness (generalized); Translations: [Muscle weakness (generalized)]Onset: 27-68-7578NyyznaxxYebqv connective tissue disease (2 sources)Repeated falls; Translations: [Repeated falls]Onset: 08-17-2024 EpisodicOther connective tissue disease (2 sources)Pain in left arm; Translations: [Pain in left arm]Onset: 06-16-2024 EpisodicOther diseases of bladder and urethra (20 sources)Urethral stricture; Translations: [Unspecified urethral stricture, male, unspecified site]Onset: 117299-64-4745VndjetcnNvckw diseases of veins and lymphatics (20 sources)Peripheral venous insufficiency; Translations: [Venous insufficiency (chronic) (peripheral)]Onset: 800776-98-3285ZochobskWdgsj gastrointestinal disorders (20 sources)Dysphagia; Translations: [Dysphagia, unspecified]Onset: 01-11-2022 99-77-0874PkuxgpekTqxyx gastrointestinal disorders (20 sources)Altered bowel function; Translations: [Change in bowel habit]Onset: 18-38-8887JmbuwkjrWhrhi gastrointestinal disorders (20 sources)Loose stool; Translations: [Other fecal abnormalities]Onset: 437671-93-8016GrsdomwgPdqle gastrointestinal disorders (4 sources)Diarrhea, unspecified; Translations: [DIARRHEA UNSPECIFIED]Onset: 82-99-5721BsfalklgMbzxu gastrointestinal disorders (20 sources)Incontinence of feces; Translations: [Full incontinence of feces] Onset: 87-21-9382EpznqfnsMpebn gastrointestinal disorders (20 sources)History of gastroesophageal reflux disease; Translations: [Personal history of other diseases of the digestive system]Onset: EpisodicOther gastrointestinal disorders (1 source)Full incontinence of feces; Translations: [Full incontinence of feces] Onset: 89-79-8322SbeagniyVxaub gastrointestinal disorders (1 source)Fecal urgency; Translations: [Fecal urgency]Onset: 60-72-7333Iflzzzxp Other injuries and conditions due to external causes (20 sources)Foreign body in stomach; Translations: [Foreign body in stomach, initial encounter]Onset: 509862-36-0038NjndogydFkcei injuries and conditions due to external causes (20 sources)Compression injury of nerve; Translations: [Other injury of unspecified body region, initial encounter]Onset: 980562-69-0756Etzgnqll Comment on above:pinched nerve in back alsoOther injuries and conditions due to external causes (20 sources)Foreign body in stomach, initial encounter; Translations: [Foreign body in stomach]Onset: 250546-77-2126HaajuubgFhvsc lower respiratory disease (20 sources)History of chronic obstructive airway disease; Translations: [Personal history of other diseases ofthe respiratory system]Onset: 02-28-2015 77-69-9103CxyaxxapEcscd lower respiratory disease (1 source)Shortness of breath; Translations: [Shortness of breath]Onset: 69-45-6724OyysibvpPxaoa nervous system disorders (3 sources)Other acute postprocedural pain; Translations: [OTHER ACUTE POSTPROCEDURAL PAIN]Onset: 73-90-8193OpscnmwxDupky nervous system disorders (20 sources)Abnormal gait; Translations: [Unspecified abnormalities of gait and mobility]Onset: 240385-34-4999HbedgrqhZfrkg nervous system disorders (1 source)Unspecified abnormalities of gait and mobility; Translations: [Unspecified abnormalities of gait and mobility]Onset: 92-28-0652XttqhdmgFnmcu non-traumatic joint disorders (5 sources)Pain in right knee; Translations: [PAIN IN RIGHT KNEE]Onset: 16-08-8092TlltlorvGskij non-traumatic joint disorders (1 source)Stiffness of right knee, not elsewhere classified; Translations: [STIFFNESS RIGHT KNEE NEC]Onset: 80-35-6929FdbjoicxFqsbp non-traumatic joint disorders (20 sources)Pain in left shoulder; Translations: [Pain in joint, shoulder region]Onset: 011597-18-1769NafegmlmUwlwu non-traumatic joint disorders (20 sources)Pain in left knee; Translations: [Pain in joint, lower leg]Onset: 485288-54-4141BrqiovwvAkaxk non-traumatic joint disorders (4 sources)Pain of left wrist; Translations: [Pain in left wrist]04-10-2024 EpisodicOther non-traumatic joint disorders (2 sources)Pain in unspecified joint; Translations: [Pain in unspecified joint] Onset: 12-26-1792CyrwbzvxXouda non-traumatic joint disorders (1 source)Pain in left elbow; Translations: [Pain in left elbow]Onset: 62-49-2875HbdyedyvSgjuy non-traumatic joint disorders (1 source)Pain in right elbow; Translations: [Pain in right elbow]Onset: 55-67-8940AfuqruosGxara non-traumatic joint disorders (1 source)Pain in right ankle and joints of right foot; Translations: [Pain in right ankle and joints of right foot]Onset: 30-69-9645TkfbxewkJlejj nutritional; endocrine; and metabolic disorders (20 sources)Overweight; Translations: [Overweight]Onset: 425732-21-2353 EpisodicResidual codes; unclassified (20 sources)Family history of colorectal cancer; Translations: [Family history of malignant neoplasm of digestive organs]Onset: 569609-67-6368Shelswwe Residual codes; unclassified (20 sources)Menopause present; Translations: [Asymptomatic menopausal state] Onset: 520525-76-1857XauyrrysCnfychsp codes; unclassified (4 sources)Asymptomatic menopausal state; Translations: [ASYMPTOMATIC MENOPAUSAL STATE]Onset: 79-41-1292AqbewedySdqtajzd codes; unclassified (20 sources)History of nasal sinus surgery; Translations: [Other specified postprocedural states]Onset: 423028-12-5535UkvmzdloFcautund codes; unclassified (9 sources)History of operative procedure on accessory sinus; Translations: [Other specified postprocedural states]Onset: 568436-99-6589Ctmpocws Residual codes; unclassified (2 sources)Contact with and (suspected) exposure to environmental tobacco smoke (acute) (chronic); Translations: [Contact with and (suspected) exposure to environmental tobacco smoke (acute) (chronic)]Onset: 20-44-7878ZvhzpirhCvibzisck and history of mental health and substance abuse codes (20 sources)H/O: depression; Translations: [Personal history of other mental and behavioral disorders]Onset: 02-28-2015 Resolved: 078519-97-9854BqrgclzdVpzgexixozc; intervertebral disc disorders; other back problems (20 sources)Radiculopathy, cervical region; Translations: [Radiculopathy, lumbar region]Onset: 03-88-4787SsdmzpykRquxvzv and strains (20 sources)Sprain of unspecified ligament of left ankle, initial encounter; Translations: [Sprain of unspecified site of left knee, initial encounter]Onset: 110712-58-6900GpqzaajtAgocsotbx-iaffywj disorders (20 sources)Continuous opioid dependence; Translations: [Opioid use, unspecified, uncomplicated]Onset: 02-28-2015 Resolved: 454783-93-9539VfqfnzuzHslnqvgfyyo injury; contusion (20 sources)Contusion of sacral region; Translations: [Contusion of lower back and pelvis, initial encounter]Onset: 366551-06-6010FzfbnjxqCfpsuywcjybf (20 sources)Bipolar (qualifier value)41-57-9705Phwyzanhpagq (6 sources)Exposure to 2018 novel coronavirus; Translations: [Contact with and (suspected) exposure to COVID19]Unclassified (1 source)LOW BACK PAIN, UNSPECIFIED; Translations: [LOW BACK PAIN, UNSPECIFIED] Onset: 54-99-4301Pamjbzsimlvr (20 sources)Onset: 866443-25-9216Ypesaqfzsfyq (1 source)Peripheral arterial disease (CMS-HCC)12-63-2152Exqmwpetwvxc (2 sources)Sprain of right -34-4447 Results Test NameValueInterpretationReference RangeFacilityRefmcleod health dillon 32-17-3019Nubppc [id number] Rock Herrera 1970 F Date Provider Department Center 06/09/2025201504121-RYHAFXVTLYOVANI SCHRADER MP ORTHO MPORTHO No family history on file Reason for Visit and Comments: Med Refill [[id number]][facility]36on Called about prescription oxycodone.[facility] Refillon [id number] Rock Herrera 1970 F Date Provider Department Center 06/08/2025 3625-YURI MILLER MP ORTHO MPORTHO No family history on file Reason for Visit and Comments: Med Refill [[id number]][facility]29on Addended by: SELVIN SCOTT on: 06/03/2025 08:50 AM Modules accepted: OrdersNormalUniversSamaritan North Health Center36on 06-03-[address] Abad's message. Patient had no other questions or concerns.[facility]36Patient returned call stating she would like [facility]. I sent a message to ELDON Sotomayor to assist with this and transferred the call the Fredy. Prior to this I asked the patient if she received my voicemail and that JAGRUTI Laguerre put in a referral to pain management. She states she already sees pain management in [place] but they told her previously they would [...] increase of pain since surgery. Patient verbalized understanding.[facility] HospitalOrders Onlyon 32-70-1666Brimsd [id number] Rock Herrera 1970 F Date Provider Department Center 06/03/202587276-ESKRVFHBPYOVANI SCHRADER MP ORTHO MPORTHO No family history on fileNormalUniK[facility]tering [facility] Hospital36on 73-34-471500Aqgbigc called with concerns of being in great [...] is unable to get Home Health Services. Adoption Coordinator instructed patient to call insurance company for recommendation. Pharmacy [facility] Patient # [phone] [address]on I spoke to the patient to see how she is doing after her recent surgery. Ms Herrera states her pain is high and would like to know if she can take the Percocet every 4 hours. I have sent a message to Dr Abad. I informed patient that unfortunately I am only here until 430 today and will not be here tomorrow. If her pain is uncontrolled throughout the night to call and ask for the resident plant protection guard. Patient verbalized understanding. She is using ice [...] She states she has not heard from [facility] physical therapy. I reached out to ELDON Sotomayor and updated the patient that [facility] should be reaching out to her. Patient verbalized understanding. She has a post op appointment on June 16 at 1130. She had no other questions or concerns. Addendum: Geri Ferris MD spoke with patient on 06/01 regarding her increase in pain.[facility] HospitalTelephoneon 31-76-9851Iawcsurig [id number] Yang Herreramie Carmina 1970 F Date Provider Department Center 06/01/2025 Jennifer6-MAYA SIDHU MP ORTHO MPORTHO No family history on file Reason for Visit and Comments: Pain [Other][facility] Center[facility] 78-60-0055HMJ&P reviewed. The patient was examined and there are no changes to the H&P. Dr. Josseline Abad MD MRCSEd Employment And Claims Aide orthopedic surgery Adult Reconstruction and Trauma [facility] OPNOTEon 10-27-2232MLPOHZQEHGL-ASSISTED KNEE ARTHROPLASTY (L) Operative Note Date: 05/31/2025 Location: [facility] OR Name: Rock Herrera, : 1970, Diagnosis Pre-op Diagnosis * Left knee pain, unspecified chronicity [M25.562] * Primary osteoarthritis of both knees [M17.0] Post-op Diagnosis * Left knee pain, unspecified chronicity [M25.562] * Primary osteoarthritis of both knees [M17.0] Procedures ROBOT-ASSISTED KNEE ARTHROPLASTY 80436 - AL ARTHRP KNE CONDYLE&PLATU MEDIAL&LAT COMPARTMENTS AL INJECTION AA&/STRD FEMORAL NERVE W/IMG GDN [[id number]] 1. ROBOT-ASSISTED KNEE ARTHROPLASTY left primary cemented posterior stabilized total knee arthroplasty using [place] triathlon implants and Lynda robotic assisted knee replacement surgery. 2. Superficial and deep layers closure for left primary cemented total knee arthroplasty. Hardware used: 1 [place] triathlon posterior stabilized femoral component, size 2, left side posterior stabilized type. 2. [place] triathlon total knee universal tibial baseplate size 3. 4. [place] triathlon X3 asymmetric patella size A32 5. [place] triathlon X3, posterior stabilized tibial bearing insert size 3 x 13 mm. 6. Biomet [place] cement 2 batches. Surgeons Primary: Josseline Abad MD Resident - Assisting: MD Severiano Carrera,medical student y3 Tobias Arango household personal assistant Procedure Summary Anesthesia: General ASA: III Estimated Blood Loss: Minimal Local anesthesia infiltrated 0.25% Marcaine and 1% lidocaine with epi total of 60 mL injected around the periarticular tissue. Total IV Fluids: Please see anesthesia chart mL Drains: * None in log * Implants Type Name Action Serial No. Pin PIN,BONE,2PACK,[id number] - [id number] Used, Not Implanted Pin PIN,BONE.[id number] - [id number] Used, Not Implanted Bone Cement CEMENT,BONE,R,1X40US - [id number] Implanted Bone Cement CEMENT,BONE,R,1X40US - [id number] Implanted Total Joint TIBIAL BASE,UNIVERSAL,#3 - [id number] Implanted Total Joint PATELLAR,TRIATHLON,X3,24N14XC - [id number] Implanted Total Joint triathlon posterior stabilized femoral left Implanted Total Joint triathlon x3 tibial bearing insert ps Implanted Staff: Audiovisual Tech: Yandel Kenyon RN Scrub Person: Harper Christie CST Fishing Rod Assembler: Tobias Arango CSA Indications: Rock Herrera is an 54 y.o. female who is having surgery for Left knee pain, unspecified chronicity [M25.562] Primary osteoarthritis of both knees [M17.0]. Patient known to have moderate degenerative OF the knee joint along with instability secondary to her lumbosacral spine as well as her weakness in the quads and hamstrings. Patient walks with a lateral thrust and has been having deformity of her left knee joint for almost 5 to 6 years. Patient denies any trauma. Patient has tried nonsurgical treatment in her left knee joint for her severe tracking notable degenerative disc in the form of cortisone injection, oral pain medications as well as viscosupplementation injections which are failed. Patient has been limping has failed nonsurgical treatment. Her x-ray of the left knee joint as well as x-ray of the lower extremity joint survey show severe tricompartmental degenerative arthritis of the left knee joint along with subchondral sclerosis and subchondral cyst formation noted. Moderately severe subchondral bone loss noted on the medial side with varus deformity of 15 degrees noted. Mechanical axis deviation of about 6 cm noted medially secondary to soft tissue laxity as well. Patient has failed nonsurgical treatment and is indicated for complex primary versus robotic assisted cemented total knee arthroplasty using [place] implants. Risk and benefits of the surgery were explained at length with the patient including complication which are but not restricted to bleeding, infection, neurovascular injury, residual pain and stiffness, anesthetic risk, deep vein thrombosis, pulmonary embolism, myocardial infarction, stroke, mortality less than 1%, recurrent dislocations, instability, polyethylene wear, recurrent infections requiring staged revision knee arthroplasty, severe bone loss requiring fusion and/or above-knee amputation were all discussed at length with the patient as well as complications in the form of severe stiffness scarring requiring manipulation under anesthesia and open scar excision. Despite all these risks patient wishes to proceed with surgery. She has signed a consent form. Site was marked. IV antibiotics were commenced within an hour of incision. Procedure Details: The patient was seen in the preoperative area. The risks, benefits, complications, treatment options, non-operative alternatives, expected recovery and outcomes were discussed with the patient. The possibilities of reaction to medication, pulmonary aspiration, injury to surrounding structures, bleeding, recurrent infection, the need for additional procedures, failure to diagnose a condi (more content not included)...NormalUnCleveland [facility] Hospital POCT GLUCOSE METER UNSOLICITED RESULTSon 97-40-2100Mdbuvwt [Mass/Vol]163 mg/dL Pibr37-274IfzvdszumuCleveland Clinic Mentor HospitalComment on above:Order Comment: Waived Testing in the ED is performed under the ED CLIA certificate #[id number]. Result Comment: [email or web address] By: #### [id number] #### [facility] ([facility]) [address], [place] [address]Jsmckrc [Mass/Vol]139 mg/dFUxoe81-715AaqrvwsbhoCleveland Clinic Mentor HospitalComment on above:Order Comment: Waived Testing in the ED is performed under the ED CLIA certificate #[id number].Result Comment: ltolles Performed By: #### [id number] #### [facility] ([facility]) [address] [place] [place] [address]Tjkxwtq Outreachon 39-40-4635Pvrxmqc [id number] Rock Herrera 1970 F Date Provider Department Center 05/27/2025 FREDY KLEIN MP ORTHO MPORTHO No family history on fileNormalUniversity of [facility] [id number] PARTIAL THROMBOPLASTIN TIME IN PPP BY COAGULATION ASSAY27.4 GbpbaaaPqlddi90.0-35.0UnCleveland Clinic Mentor HospitalComment on above:Result Comment: Clinical significance of the APTT is questionable in the presence of heparin.Performed By: #### [id number] #### [facility] ([facility]) [address] [place] [address]OKH WITH AUTO DIFFERENTIALon 48-84-5601Aqfcuaath (Bld) [#/Vol] 0.10 10*3/uLNormal0.00-0.20UnCleveland Clinic Mentor HospitalComment on above: Performed By: #### [id number] #### [facility] ([facility]) [address] [place] [address]Kbcidiwtb/100 WBC (Bld)1.1 %High0.0-1.0UnCleveland Clinic Mentor HospitalComment on above:Performed By: #### [id number] #### [facility] ([facility]) [address] [place] [address]Kdbyhlebvcc (Bld) [#/Vol]0.07 10*3/uLNormal0.00-0.50UnCleveland Clinic Mentor HospitalComment on above:Performed By: #### [id number] #### [facility] ([facility]) [address] [place], [place] [address]Mhcwdjmmxby/100 WBC (Bld)0.8 %Normal0.0-6.0UnCleveland Clinic Mentor HospitalComment on above:Performed By: #### [id number] #### [facility] ([facility] [address] [facility] [address] [place], [place] [address]Sstsvmtmhoq distribution width (RBC) [Ratio]13.4 %Normal 11.5-15.0UnCleveland Clinic Mentor HospitalComment on above:Performed By: #### [id number] #### [facility] ([facility]) [address] [place] [address]RJWLENVTXEM MEAN CORPUSCULAR HEMOGLOBIN CONCENTRATION (G/DL) BY SYWLRVZST26.9 g/uCJsbpqc58.0-35.0UnCleveland Clinic Mentor HospitalComment on above:Performed By: #### [id number] #### [facility] ([facility]) [address] [address] [place], [place] [address]Yrotrheykp (Bld) [Volume fraction]38.4 %Wrdvsu97.0-45.0 [facility] CampusComment on above:Performed By: #### [id number] #### [facility] ([facility]) [address] [place], [place] [address]Odeqtbytli (Bld) [Mass/Vol]13.4 g/lJDoqdkd84.0-15.0UnCleveland Clinic Mentor HospitalComment on above:Performed By: #### [id number] #### [facility] ([facility]) [address] [place], [place] [address]Hlrcicel granulocytes (Bld) [#/Vol]0.03 10*3/uLNormal0.00-0.20 [facility] CampusComment on above:Performed By: #### [id number] #### [facility] ([facility]) [address] [facility] [place], [place] [address]Lvolhyeb granulocytes/100 WBC (Bld)0.3 %Normal0.0-1.0UnCleveland Clinic Mentor HospitalComment on above:Performed By: #### [id number] #### [facility] ([facility]) [address] [facility] [address] [place], [place] [address]Ilurywsrvgo (Bld) [#/Vol]3.77 10*3/uLNormal1.20-4.00UnCleveland Clinic Mentor HospitalComment on above:Performed By: #### [id number] #### [facility] ([facility]) [address] [place] [address]Ckgucnxnewt/100 WBC (Bld)41.8 %Erehgu79.0-45.0UnCleveland Clinic Mentor HospitalComment on above:Performed By: #### [id number] #### [facility] ([facility]) [address] [place] [address]VEY (RBC) [Entitic mass]34.5 isJtbk55.0-33.0UnCleveland Clinic Mentor HospitalComment on above:Performed By: #### [id number] #### [facility] ([facility]) [address] [place] [address]JSB (RBC) [Entitic vol]99.0 qDVkmv43.0-98.0UnCleveland Clinic Mentor HospitalComment on above:Performed By: #### [id number] #### [facility] ([facility]) [address] [place] [address]Mkanoiwdn (Bld) [#/Vol]0.66 10*3/uLNormal0.10-1.00UnCleveland Clinic Mentor HospitalComment on above:Performed By: #### [id number] #### [facility] ([facility]) [address] [place] [place] [address]Ahmdcejwy/100 WBC (Bld)7.3 %Normal5.0-12.0UnCleveland Clinic Mentor HospitalComment on above:Performed By: #### [id number] #### [facility] ([facility]) [address] [place] [address]Jbhpoozebdj (Bld) [#/Vol]4.39 10*3/uLNormal1.60-7.60UnCleveland Clinic Mentor HospitalComment on above:Performed By: #### [id number] #### [facility] ([facility]) [address] [place] [address]Vsbrysibpkg/100 WBC (Bld)48.7 %Dgvqyp79.0-72.0UnCleveland Clinic Mentor HospitalComment on above:Performed By: #### [id number] #### [facility] ([facility]) [address] [address]LHAI (PER 100 WBCS) BY AUTOMATED COUNT0.0 %Kuojqs1SclwgwphqgCleveland Clinic Mentor HospitalComment on above:Performed By: #### [id number] #### [facility] ([facility]) [address] [address]OFPBSHVDN (10*3/UL) IN BLOOD AUTOMATED [id number] 10*3/uLNormal 150-400UnCleveland Clinic Mentor HospitalComment on above:Performed By: #### [id number] #### [facility] ([facility]) [address] [address]YXD (Bld) [#/Vol]3.88 10*6/uLNormal3.80-5.00UnCleveland Clinic Mentor HospitalComment on above:Performed By: #### [id number] #### [facility] ([facility]) [address] [address]ULF (Bld) [#/Vol]9.02 10*3/uLNormal4.00-10.60UnCleveland Clinic Mentor HospitalComment on above:Performed By: #### [id number] #### [facility] ([facility]) [address] [address]BTXRTRYZSAYEF METABOLIC PANELon 69-77-3830Concxvg [Mass/Vol]4.6 g/dLNormal3.5-5.7UnCleveland Clinic Mentor HospitalComment on above:Performed By: #### [id number] ####[facility] ([facility])[address] [place] [address] ALP [Catalytic activity/Vol]96 U/OMnfmce37-030SisnqfmcjrCleveland Clinic Mentor HospitalComment on above:Performed By: #### [id number] ####[facility] ([facility])[address] [place] [address]GLQ [Catalytic activity/Vol]23 U/L Normal7-52UnCleveland Clinic Mentor HospitalComment on above:Performed By: #### [id number] ####[facility] ([facility])[address] [place], [place] [address]Mjptw gap [Moles/Vol]12 mmol/LNormal7-20UnCleveland Clinic Mentor HospitalComment on above:Performed By: #### [id number] ####[facility] ([facility])[address] [place], [place] [address]ZWD [Catalytic activity/Vol]30 U/PWmnzjr69-19EuepovkhwqCleveland Clinic Mentor HospitalComment on above:Performed By: #### [id number] ####[facility] ([facility])[address] [place], [place] [address]Gsywdcrpf [Mass/Vol]0.7 mg/dL Normal0.3-1.0UnCleveland Clinic Mentor HospitalComment on above:Performed By: #### [id number] ####[facility] ([facility])[address] [place] [address] Calcium [Mass/Vol]9.7 mg/dLNormal8.6-10.3UnCleveland Clinic Mentor Hospital Comment on above:Performed By: #### [id number] ####[facility] ([facility])[address] [place], [place] [address]Agiihadm [Moles/Vol]102 mmol/ZFkcdqc74-928 [facility] CampusComment on above:Performed By: #### [id number] ####[facility] ([facility])[address] [place], [place] [address]LC0 [Moles/Vol] 28 mmol/MNdajrk97-81CfjhrhzgdbCleveland Clinic Mentor HospitalComment on above: Performed By: #### [id number] ####[facility] ([facility])[address] [place], [place] [address]Icohsvboic [Mass/Vol]1.05 mg/dLNormal0.60-1.20UnCleveland Clinic Mentor HospitalComment on above:Performed By: #### [id number] ####[facility] ([facility])[address] [place], [place] [address]KWGIWUITKP FILTRATION RATE ML/MIN/1.73 SQ M.AZZYOCSSG48.1 mL/min/1.73m*2Normal>60.0UnCleveland Clinic Mentor Hospital Comment on above:Result Comment: The [facility]???s estimated glomerular filtration rate (eGFR) will no longer include consideration of race in its calculation. The National Kidney Foundation???s eGFR Task Force developed new recommendations for the estimation of the glomerular filtration ra te in the [place] They recommend immediate implementation of the new equation refit without the race variable in all laboratories because the calculation does not include race. In addition to not including race in the calculation and reporting, it included diversity in its development, and has acceptable performance characteristics and potential consequences that do not disproportionately affect anyone group of individuals.Performed By: #### [id number] ####[facility] ([facility])[address] [facility] [address]Aqdvarz [Mass/Vol]127 mg/uNAzyu58-925PdpfbsjsgtCleveland Clinic Mentor HospitalComment on above:Performed By: #### [id number] ####[facility] ([facility])[address] [facility] [address]Exahqvjkh [Moles/Vol]4.0 mmol/LNormal3.5-5.1UnCleveland Clinic Mentor HospitalComment on above:Performed By: #### [id number] ####[facility] ([facility])[address] [facility] [place] [address]Zvsvmns [Mass/Vol]7.5 g/dLNormal 6.0-8.3UnCleveland Clinic Mentor HospitalComment on above:Performed By: #### [id number] ####[facility] ([facility])[address] [facility] [place] [address]Aggjeb [Moles/Vol]138 mmol/PPtnuqv588-647ZznobiwwstCleveland Clinic Mentor HospitalComment on above:Performed By: #### [id number] ####[facility] ([facility])[address] [facility] [place], [place] [address]Wwoa nitrogen [Mass/Vol]6 mg/dLLow7-25UnCleveland Clinic Mentor HospitalComment on above:Performed By: #### [id number] ####[facility] ([facility])[address] [facility] [place], [place] [address]MWLG NITROGEN/CREATININE (MASS RATIO) IN SER/PLAS5.7NormalUniversity of Brooke Army Medical CenterComment on above: Performed By: #### [id number] ####[facility] ([facility])[address] [place] [address]BGib 06-12-4031SMJvs-Anesthesia Clinic 05/26/25 Pt presents for Pre Anesthesia Clinic visit prior to upcoming procedure: Left Robot asst knee with Dr Abad under General on 05/31/25 Robert Giron, DO [address] [facility], [address] [facility] [address] [facility] [address] [facility] [address] Subjective There were no vitals filed for this visit. Allergies[1] Medication Documentation Review Audit Reviewed by Jen Dodson MA (Parts Analyst) on 05/05/25 at 1035 Medication Order Taking? Sig Documenting Provider Last Dose Status albuterol 90 mcg/actuation inhaler [id number] No Inhale 2 puffs every 6 (six) hours if needed for wheezing. Historical Provider, Taking Active alendronate (Fosamax) 70 mg tablet [id number] No Take 70 mg by mouth every 7 (seven) days. Historical Provider, Taking Active ALPRAZolam (Xanax) 1 mg tablet [id number] No Take 1 tablet by mouth if needed in the morning, at noon, and at bedtime. Historical Provider, Taking Active ARIPiprazole (Abilify) 15 mg tablet [id number] No Take 15 mg by mouth in the morning. Historical Provider, Taking Active atorvastatin (Lipitor) 80 mg tablet [id number] No Take 1 tablet by mouth in the morning. Historical Provider, Taking Active carvedilol (Coreg) 25 mg tablet [id number] No Take 1 tablet by mouth in the morning and at bedtime. Historical Provider, Taking Active cetirizine (ZyrTEC) 10 mg tablet [id number] No Take 1 tablet by mouth in the morning. Historical Provider, Taking Active dilTIAZem CD (Cardizem CD) 120 mg 24 hr capsule [id number] No Take 120 mg by mouth in the morning. Historical Provider, Taking Active furosemide (LASIX ORAL) [id number] No Take 20 mg by mouth in the morning. Historical Provider, Taking Active loperamide (Imodium A-D) 2 mg tablet [id number] No Take 2 mg by mouth every 12 (twelve) hours if needed. Historical Provider, Taking Active meclizine (Antivert) 25 mg tablet [id number] No Take 25 mg by mouth if needed in the morning, at noon, and at bedtime. Historical Provider, Taking Active metFORMIN (Glucophage) 500 mg tablet [id number] No Take 500 mg by mouth with breakfast. Historical Provider, Taking Active montelukast (Singulair) 10 mg tablet [id number] No Take 10 mg by mouth in the evening. Historical Provider, Taking Active naloxone (Narcan) 4 mg/0.1 mL nasal spray [id number] Administer 1 spray (4 mg) into affected nostril(s) if needed for opioid reversal. May repeat every 2-3 minutes if needed, alternating nostrils, until medical assistance becomes available. Mamie Kiser MD Active omeprazole (PriLOSEC) [address] capsule [id number] No Take 40 mg by mouth at bedtime. Historical ProviderMD Taking Active orphenadrine (Norflex) 100 mg 12 hr tablet [id number] No Take 100 mg by mouth at bedtime. Historical Provider, Taking Active solifenacin (VESIcare) 10 mg tablet [id number] No Take 10 mg by mouth in the morning. Historical ProviderMD Taking Active There is no immunization history on file for this patient. Problem List[2] There are no diagnoses linked to this encounter. History Medical History[3] Surgical History[4] HPI Rock Herrera is a 54 y.o. year old female patient who presents for Pre Anesthesia Clinic visit prior to upcoming procedure: Left Robot asst knee with Dr Abad under General on 05/31/25. Pt Edentulous Pt uses walker for ambulation Pt denies hx of anesthesia complications; No malignant hyperthermia, serotonin syndrome or severe PONV. Pt denies family hx of anesthesia complications. Pt getting all labs Dr Abad ordered done today after visit at [facility] lab EKG: per Cardiac clearance not in media from 05/07/25. Sinus Emir HR 45 Cardiac clearance scanned to media on 05/07/25: patient cleared at this time for needed procedure with low risk Echo 10/2024: EF 60-65%, mild aortic/tricuspid regurg, mild pulmonary hypertension Cardiac Cath 2019 per PCP note: normal. Pulmonology Clearance 04/26/25: Pt is on optimal therapy and is able to proceed with knee surgery Neurology Clearance received today 05/26/[address] Sanchez Medical clearance, pending. Pt was seen by IM Dr Giron on 05/20/25 PMH: HTN, s/p DC, CAD, HLD, Mild heart valve disease, Fibromyalgia, GERD, DM, IBS, Parkinson, Arthritis, Migraines, insomnia, anxiety/depression, CELINE,CKD PSH: colonoscopy, Appendectomy, Hysterectomy, carpal tunnel release, Cataract, right knee surgery, sinus surgery, toe surgery Pt denies CP or SOB. No N/V/D. Resp easy reg. Skin warm and dry. No fever or chills No visits with results within 1 Month(s) from this visit. Latest known visit with results is: Admission on 08/03/2024, Discharged on 08/03/2024 Component Date Value Ref Range Status Glucose POC 08/03/2024 132 (H) 70 - 105 mg/dL Final jenck2 === 05/05/25 === XR KNEE 4+ VIEWS LEFT - Impression - (more content not included)...NormalUnCleveland Clinic Mentor HospitalLabon [id number] Rock Herrera 1970 F Date Provider Department Center 05/26/2025 2244-[facility] MP LAB RESOURCE MP DRAW Medical Pavi No family history on fileNormalUniversity Cleveland Clinic FoundationMRSA/MSSA DNA NASALon 84-16-3729PENV DNAPositiveAbnormalNegativeUnCleveland Clinic Mentor HospitalComment on above:Order Comment: Testing methodology is an automated qualitative in vitro diagnostic test for the directdetection and differentiation of Staphylococcus aureus (SA) DNA and methicillin-resistant Staphylococcus aureus (MRSA) DNA from nasal swabs in patients at risk for nasal colonization. The test utilizes real-time polymerase chain reaction (PCR) for the amplification of MRSA/SA DNA and fluorogenic target-specific hybridization probes for the detection of the amplified DNA. A negative result does not preclude nasal colonization.Performed By: #### [id number] ####[facility] ([place])[address] [place], [place] [address]DLWL DNANegativeNormalNegative [facility] CampusComment on above:Order Comment: Testing methodology is an automated qualitative in vitro diagnostic test for the dire ctdetection and differentiation of Staphylococcus aureus (SA) DNA and methicillin-resistant Staphylococcus aureus (MRSA) DNA from nasal swabs in patients at risk for nasal colonization. The test utilizes real-time polymerase chain reaction (PCR) for the amplification of MRSA/SA DNA and fluorogenic t arget-specific hybridization probes for the detection of the amplified DNA. A negative result does not preclude nasal colonization.Performed By: #### [id number] ####[facility] ([facility])[address] [place], [place] [address]NHITOBS-HJFar 39-87-3675SRO IN PPP BY COAGULATION ASSAY0.52Segoiq2.90-1.10UnCleveland Clinic Mentor HospitalComment on above:Result Comment: [facility] RECOMMENDED INR FOR WARFARIN THERAPY CONDITION INR PROPHYLAXIS OF VENOUS THROMBOSIS 2-3 (HIGH-RISK SURGERY) TREATMENT OF VENOUS THROMBOSIS 2-3 TREATMENT OF PULMONARY EMBOLISM 2-3 PREVENTION OF SYSTEMIC EMBOLISM: 2-3 ACUTE MYOCARDIAL INFARCTION TISSUE HEART VALVES VALVULAR HEART DISEASE ATRIAL FIBRILLATION RECURRENT SYSTEMIC EMBOLISM MECHANICAL HEART VALVE 2.5-3.5 FROM: ORAL ANTICOAGULANTS. MECHANISM OF ACTION, CLINICAL EFFECTIVENESS, AND OPTIMAL THERAPEUTIC RANGE. CHEST 1995;108:231S-246S.Performed By: #### [id number] #### [facility] ([facility]) [address] [place], [place] [address]LTAOWMNBPWT TIME (PT) IN PPP BY COAGULATION ASSAY13.0 Seconds Htxmgx44.3-14.8UnCleveland Clinic Mentor HospitalComment on above:Performed By: #### [id number] #### [facility] ([facility]) [address] [place], [place] [address]Glr-Ocpcvnequ Testingon 41-84-3503Jwg-Admission [id number] Rock Herrera 1970 F Date Provider Department Center 05/26/202538997-XIW-NASWUKBZOC CLINI*[facility] PAC [place] Medical C No family history on fileNormalUniversSamaritan North Health CenterTYPE AND SCREENon 08-59-9860JS SCREENNegativeNormalUniversSamaritan North Health Center Comment on above:Performed By: #### [id number] #### [facility] BLOOD BANK ,ABO group Nom (Bld)ONormalUnCleveland Clinic Mentor HospitalComment on above: Performed By: #### [id number] #### [facility] BLOOD B[facility] ,RH TYPE IN BLOODPositiveNormalUniKettering Memorial HospitalComment on above:Performed By: #### [id number] #### [facility] BLOOD BANK ,URINALYSIS MICROSCOPIC WITH REFLEX CULTUREon 28-17-4157LMIDV (#/LPF) IN URINE SEDIMENTOccasionalNormalNone Seen, Occasional, FewUnCleveland Clinic Mentor HospitalComment on above:Performed By: #### [id number] #### [facility] ([facility]) [address] [place], [place] [address]IOH (#/HPF) IN URINE SEDIMENT0-2NormalNone Seen, 0-2UnCleveland Clinic Mentor HospitalComment on above:Performed By: #### [id number] #### [facility] ([facility]) [address] [place], [place] [address]GTGFBJNP EPITHELIAL CELLS (#/LPF) IN URINE SEDIMENTManyAbnormal None Seen, Occasional, FewUnCleveland Clinic Mentor HospitalComment on above: Performed By: #### [id number] #### [facility] ([facility]) [address] [place], [place] [address]GWM (LEUKOCYTE) (#/HPF) IN URINE SEDIMENT0-2NormalNone Seen, 0-2 [facility] CampusComment on above:Performed By: #### [id number] #### [facility] ([facility]) [address] [place], [place] [address]PXEOGZJBYG WITH REFLEX CULTUREon 33-51-1452TXFNVVVJU, TOTAL PRESENCE IN URINENegativeNormalNegativeUnCleveland Clinic Mentor Hospital Comment on above:Performed By: #### [id number] #### [facility] ([facility]) [address] [place], [place] [address]Bhpcjyg (U)ClearNormalClearUnCleveland Clinic Mentor Hospital Comment on above:Performed By: #### [id number] #### [facility] ([facility]) [address] [place], [place] [address]Vcnen (U)ColorlessNormalColorless, Yellow, Light-Yellow [facility] CampusComment on above:Performed By: #### [id number] #### [facility] ([facility]) [address] [place], [place] [address]YWTCAKS (MG/DL) IN URINENormalNormalNormalUniversSamaritan North Health CenterComment on above:Performed By: #### [id number] #### [facility] ([facility]) [address] [place], [place] [address]SCRWVJYUCH PRESENCE IN URINENegativeNormalNegativeUnCleveland Clinic Mentor HospitalComment on above:Performed By: #### [id number] #### [facility] ([facility]) [address] [place], [place] [address]Mywvpcp Ql (U)NegativeNormalNegativeKettering Health Main CampusComment on above:Performed By: #### [id number] #### [facility] ([facility]) [address] [place], [place] [address]NHCBLGNAW ESTERASE PRESENCE IN URINE BY TEST STRIPSmallAbnormal NegativeUnCleveland Clinic Mentor HospitalComment on above:Performed By: #### [id number] #### [facility] ([facility]) [address] [place] [address]UNOMMTZ PRESENCE IN URINENegativeNormalNegativeUnCleveland Clinic Mentor HospitalComment on above:Performed By: #### [id number] #### [facility] ([facility]) [address] [address]nI (U)5.0 [pH]Normal5.0-8.0UnCleveland Clinic Mentor Hospital Comment on above:Performed By: #### [id number] #### [facility] ([facility]) [address] [place] [address]Ejqbgwc (U) [Mass/Vol]NegativeNormalNegativeUnCleveland Clinic Mentor HospitalComment on above:Performed By: #### [id number] #### [facility] ([facility]) [address] [place] [address]Ukaysuif gravity (U) [Rel density]1.774Bxf0.010-1.030UnCleveland Clinic Mentor HospitalComment on above:Performed By: #### [id number] #### [facility] ([facility]) [address] [place] [address]JJLNAMMVWWUN (MG/DL) IN URINENormalNormalNormalUniversSamaritan North Health CenterComment on above:Performed By: #### [id number] #### [facility] ([facility]) [address] [place] [address]WWOOU CULTURE, ROUTINEon 78-72-5681Dnsjltsp identified Cx Nom (U)<10,000 CFU/ML No Significant GrowthNormalUniKettering Memorial Hospital Comment on above:Performed By: #### [id number] #### [facility] ([facility]) [address] [place] [address]Unpt for Procedureon 28-67-9971Cyws for [id number] Rock Herrera 1970 F Date Provider Department [place] 05/20/2025 Magi-SELVIN SCOTT MP ORTHO MPORTHO No family history on fileNormalUniversSamaritan North Health CenterCT KNEE LEFT WO IV CONTRASTon 36-84-4298VD KNEE LEFT WO IV CONTRASTCT KNEE LEFT WO IV CONTRAST 05/18/2025 12:22 PM CLINICAL INDICATIONS: Primary osteoarthritis of both knees, preoperative planning for robotic left total knee arthroplasty TECHNIQUE: Multidetector CT axial images were obtained without IV contrast including of the left hip, left knee, and left ankle for preoperative planning purposes. All CT scans at this facility use dose modulation, iterative reconstruction, and/or weight based dosing when appropriate to reduce radiation dose to as low as reasonably achievable COMPARISON: Left knee radiographs 05/05/2025 FINDINGS: Degenerative changes of the left hip and left knee. Small moderate left suprapatellar joint effusion. Lateral patellar tilt. No discrete fracture. IMPRESSION: 1. Degenerative changes as described. Small to moderate left knee joint effusion. 2. This exam was performed for preoperative planning purposes. Electronically signed: Jean-Pierre Silvestre. Not Carlitos Interpretation CodeUnCleveland Clinic Mentor HospitalComment on above:Order Comment: SURGICAL PLANNING FOR LYNDA ROBOTIC L TKA SURGICAL DATE OCTAbstracton [id number] Rock Herrera 1970 F Date Provider Department Center 05/14/2025 JOSSELINE NGUYEN [facility] No [facility] 12-18-8592WkmdqpsjvMxtqlxwcc From: Iqra Butcher To: EU - Administrative; Sent: 03/17/2025 16:00:31 EDT Show up: 04/07/2025 16:00:00 EDT Subject: 3 month F/U Due Date/Time: 06/15/2025 15:59:00 EDT Reminder/Recall Schedule patient for a 3 mo f/u with a PVR, with LT scheduled 06/15/25[facility]36on [id number] CAN NOT HAVE CT ANYWHERE ELSE I TOLD HER DURING HER VISIT SHE WILL HAVE TO GET IT [facility]ONE [facility] OR NO SURGERYNormOhioHealth Hardin Memorial Hospital36 Pt is calling because she need ct scan [facility]on [id number] WAS SEEN YESTERDAY [facility]29on [id number] by: SELVIN SCOTT on: 05/28/2025 08:59 AM Modules accepted: OrdersNormalUniversSamaritan [facility] Health Center36on 05-05-2025 [facility] Hospital[facility]-Upon 05-05-2025 Follow-[id number] Rock Herrera 1970 F Date Provider Department Center 05/05/2025 JOSSELINE NGUYEN MP ORTHO MPORTHO No family history on file Level of Service:87342 AL OFFICE/OUTPATIENT ESTABLISHED MOD MDM 30 MIN (GC,57,25) Reason for Visit and Comments: Follow-up [218308][facility] 30-92-7159XP Orthopedic Surgery Subjective Chief complaint: Chief Complaint Patient presents with Left Knee - Follow-up 05/05/25 Patient presents for follow-up evaluation of left knee pain in setting of left knee osteoarthritis. At last visit, along discussion was had with the patient regarding treatment options moving forward and she elected to proceed with robotic assisted left total knee arthroplasty with cemented components. She presents today for reevaluation and assessment. In the interim, she continues to endorse moderate to severe left knee pain that is significantly inhibiting her activities of daily living. She remains interested in proceeding with left total knee arthroplasty. Endorses history of diabetes, Parkinson's, fibromyalgia, CAD, heart valve disease, myocardial infarction. She states that she quit smoking since last visit. 09/28/24 54-year-old female presents for follow-up visit [...] Arthritis Coronary artery disease Depression Diabetes mellitus ([facility]/HCC) Fibromyalgia, primary Heart valve disease Hyperlipidemia Hypertension Myocardial infarction ([facility]) Sleep apnea Objective General: There is no height or weight on file to calculate BMI. No acute distress, comfortable Respiratory: Unlabored breathing [...] reviewed: X-rays of the left knee joint was reviewed which reveals: Osteoarthritic changes appreciated to the left knee joint. Most significant joint space narrowing appreciated medially. There is osteophytic changes subchondral sclerosis of multiple compartments. MRI scan from her recent outside institution which shows the patient has severe maltracking lateral degenerative's of the left knee joint along with subchondral cyst formation with subchondral sclerosis noted. Positive bone marrow edema noted as well as complex degenerative tear of the menisci (more content not included)...[facility]/Cl[facility] Noteon 05-04-2025 Urology Office/Clinic NoteUrology Office/Clinic Note Chief Complaint Cysto HPI Staff Cysto ABX TAKEN History of Present Illness Tests reviewed: I have reviewed the previous health record information and history for this patient from Sofiya Villa PA-C. I have reviewed and verified the staff HPI to be accurate for this encounter. Review of Systems PHQ Score Initial Depression Screen Score: 0 SCORE ROS - Provider Constitutional: denies weight loss, denies hot flashes. Eyes: denies eye problems. Gastrointestinal: denies nausea, denies vomiting. Cardiovascular: denies chest pain or angina. Integumentary: no dryness Musculoskeletal: denies musculoskeletal symptoms. ENMT: denies otolaryngeal symptoms. Respiratory: no shortness of breath. Heme/Lymph: denies easy bleeding tendency, denies easy bruising tendency. Psychiatric: no confusion, no anxiety. Genitourinary: See HPI. Physical Exam Vitals & Measurements HR: 54(Peripheral) RR: 18 BP: 126/64 HT: 64 in HT: 163 cm WT: 157.63 lb WT: 71.5 kg BMI: 26.91 General Appearance: alert, no distress, well nourished, well developed adult. Procedure Operative Information Anesthesia Type: Local Procedure: Local Cystoscopy Complications: None Surgical risks, benefits, details of the procedure have been explained to the patient. Full informed consent has been obtained. Intraoperative Information Prepped: Patient is brought back to the endoscopy suite. Patient is placed in modified dorso/lithotomy position. Patient prepped in the usual fashion with Betadine solution. 2% Xylocaine Jelly is placed per Urethra. After waiting several minutes, the Cystoscope is introduced. The Urethra is: Normal, no SOPHIA, no prolapse, no A.V. The Bladder: No tumors or stones, Trabeculated: None (0) The Ureteral orifices: Show efflux of clear urine Specimens Removed: None Removal: Cystoscope is removed. The patient tolerated it well. Postoperative Information Patient is discharged home with antibiotic coverage. Follow up arranged. Assessment/Plan 1. Gross hematuria (R31.0: Gross hematuria) Intermittent for weeks to months. Typically asymptomatic. Neg eval in 2020. Shares she stopped smoking. Smoker x 30 years. Cytol 01/21/25 - negative KUB 04/16/25 [facility] - Kidneys are partially obscured. No stones seen. SILVANA 04/16/25 [facility] - Suggested 4 mm stone on the R. No hydro. 7 mm LLP renal cyst. Pt had IO cysto today wo complications. Reviewed imaging with pt. This completes pt's hematuria workup which was neg. 2. Kidney stone (N20.0: Calculus of kidney) KUB 04/16/25 [facility] - Kidneys are partially obscured. No stones seen. SILVANA 04/16/25 [facility] - Suggested 4 mm stone on the R. No hydro. Follow up 1 yr with KUB or sooner if needed. Pt understands and agrees with plan. 3. OAB (overactive bladder) (N32.81: Overactive bladder) Started Mirabegron 50 mg qd at prior OV. Also taking Vesicare 10 mg qd. -Cont both meds -Timed voids, emptying maneuvers 4. Renal cyst (N28.1: Cyst of kidney, acquired) SILVANA 04/16/25 [facility] - 7 mm LLP renal cyst. -If simple, does not require surveillance. Follow-up With When Contact Information LILI WALSH, Donaldo Moreira, [facility] [address], [place] [address]- Additional Instructions: 1 yr with KUB Patient Education Dietary Guidelines to Help Prevent Kidney Stones I, Jessie Carr, personally scribed for Dr. Pearson on 05/04/2025 15:18:11. . Documentation recorded by the scribe, Jessie Carr, accurately reflects the services(s) I performed and decisions made by me. Authenticated by Dr. Pearson on 05/04/2025 15:20:29. Problem List/Past Medical History Ongoing Anxiety BMI [...] bladder Irritable bowel syndrome with diarrhea Kidney stone Kidney stones Loose stools Menopause Mixed incontinence urge and stress Nausea and vomiting Nocturia OAB (overactive bladder) Osteoporosis Other urethral stricture, female Pinched nerve in neck Renal cyst Screen for colon cancer Smoker Stress incontinence Tertiary contraction of esophagus Urge incontinence Urinary frequency Vomiting Historical ADHD (attention deficit hyperactivity disorder) Agoraphobia Anxiety Benign hypertension Bipolar Common migraine Depression Diabetes mellitus type 2 Dysphagia Fibromyalgia Generalised osteoarthritis Heart attack Hypercholesterolaemia Neuropathy, peripheral OCD (obsessive compulsive disorder) CELINE - Obstructive sleep apnea Post traumati (more content not included)...[facility] Comment on above:Result Comment: Electronically Signed By: Donaldo PEARSON MD\.br\Date and Time Signed: 05/04/25 15:20 EDT\.br\Electronically Co-Signed By: Jessie Carr\.br\Date and Time Co-Signed: 05/04/25 15:18 XLG33oa 05-03-2025 36Patient called wanting a sooner appointment, states that she needs a knee replacement but doesn't want to have it in the winter, I moved her to jun 09 where there was an opening but patient wants to know if we can get her in sooner. Informed patient that we will call her back to let her knowNGeorgetown Behavioral HospitalCoding Summaryon 86-30-7371Equmll SummaryHTMLBase 64 YgwpvhugUXh1zKp+PGhlYWQ+VH4EINMuU67fqJBbuM5uT6QSQMzWZlkzUTQNULeKJlXqecUlRT3hyLFs ZXJu [file] Y29 (more content not included)...[facility] HospitalProgress Note - Nurseon 61-79-9094Dlkuupsg Note - NurseNotes from echo done on 11/13/[address] Tobias reviewed PAT, no further orders received at this time. [Electronically Signed on: 04/21/2025 10:44 EDT] Marsha Steele RN [Verified on: 04/21/2025 10:44 EDT] Marsha Steele RNNoUniversity Hospitals Beachwood Medical CenterProvider Orderson 13-63-1217Qazdtmse [id number]#1.00OTGTIFFOhioHealth Grady Memorial Hospital.Auto Diff 1on 51-03-0677Gkvp [place] %8 %Normal1-12[facility] Comment on above:Performed By: #### [id number], [id number], [id number] #### [facility] (DEFAULT) [address] [place] [address] 71131Ztav Abs#0.0 w31Poaqwu9.0-0.2M[facility] HospitalComment on above:Performed By: #### [id number], [id number], [id number] #### [facility] (DEFAULT) [address] [place] [address] 08661Kafgvsxrl/100 WBC (Bld)0.3 %Normal0.2-2.0[facility] Comment on above:Performed By: #### [id number], [id number], [id number] #### [facility] (DEFAULT) [address] [place] [address] 29556Iap Abs#0.0 a99Nyiddo2.0-0.4Maohiohealth hardin memorial hospital HospitalComment on above:Performed By: #### [id number], [id number], [id number] #### [facility] (DEFAULT) [address] [place] [address] 26669Ngedndcykhl/100 WBC (Bld)0.5 %Low0.9-4.0[facility] Hospital Comment on above:Performed By: #### [id number], [id number], [id number] #### [facility] (DEFAULT) [address] [place] [address] 12113Vftbn Abs#3.2 c67Umco0.3-2.9Maohiohealth hardin memorial hospital HospitalComment on above:Performed By: #### [id number], [id number], [id number] #### [facility] (DEFAULT) [address] [place] [address] 71610Vjgxrhhuccj/100 WBC (Bld)40 %Kmdzwy35-18Nwnpavbm Hospital Comment on above:Performed By: #### [id number], [id number], [id number] #### [facility] (DEFAULT) [address] [place] [address] 09997Rupk Abs#0.6 j46Xlqjyi1.0-0.8Maohiohealth hardin memorial hospital HospitalComment on above:Performed By: #### [id number], [id number], [id number] #### [facility] (DEFAULT) [address] [place] [address] 61697Gtwn Abs#4.1 q21Drvyay5.5-9.2Magrholzer hospital HospitalComment on above:Performed By: #### [id number], [id number], [id number] #### [facility] (DEFAULT) [address] [place] [address] 39929Wkwvrjjvyvh/100 WBC (Bld)51 %Zlscik67-51Hqhjyntz Hospital Comment on above:Performed By: #### [id number], [id number], [id number] #### [facility] (DEFAULT) [address] [place] [address] 43463KOL Standardon 45-10-4034Bxvad gap [Moles/Vol]11.7 mmol/L Normal5.0-19.0[facility] OhioComment on above:Performed By: #### [id number], [id number], [id number] #### [facility] (DEFAULT) [address] [place] [address] 40824Pzxbnugwgm ChemNormalSelect Medical Specialty Hospital - Southeast OhioComment on above:Performed By: #### [id number], [id number], [id number] #### [facility] (DEFAULT) [address] [place] [address] 13825LOQ/Creat RatioUnable to CalculateInvalid Interpretation Code4.6-16.2MLakeHealth Beachwood Medical CenterComment on above:Performed By: #### [id number], [id number], [id number] #### [facility] (DEFAULT) [address] [place] [address] 71586Bakbegm [Mass/Vol]9.6 mg/dLNormal8.9-10.3MLakeHealth Beachwood Medical Center Comment on above:Performed By: #### [id number], [id number], [id number] #### [facility] (DEFAULT) [address] [place] [address] 87659Leszkjoy [Moles/Vol]99 mmol/LRfn028-009Bgscqrer Hospital Comment on above:Performed By: #### [id number], [id number], [id number] #### [facility] (DEFAULT) [address] [place] [address] 07147CM2 [Moles/Vol]29 mmol/TXesjre71-69Lktsvsst Hospital Comment on above:Performed By: #### [id number], [id number], [id number] #### [facility] (DEFAULT) [address] [place] [address] 60301Tvazuiomlo [Mass/Vol]0.98 mg/dLNormal0.60-1.30[facility] OhioComment on above:Performed By: #### [id number], [id number], [id number] #### [facility] (DEFAULT) [address] [place] [address] 13678Qrigpxp [Mass/Vol]114.0 mg/eOTheelj19.0-118.0[facility] HospitalComment on above:Performed By: #### [id number], [id number], [id number] #### [facility] (DEFAULT) [address] [place] [address] 10036Rualochsl [Moles/Vol]3.7 mmol/LNormal3.6-5.1Mmer[facility] HospitalComment on above:Performed By: #### [id number], [id number], [id number] #### [facility] (DEFAULT) [address] [place] [address] 62478Gcilre [Moles/Vol]136.0 mmol/APizjgt978.0-144.0[facility] HospitalComment on above:Performed By: #### [id number], [id number], [id number] #### [facility] (DEFAULT) [address] [place] [address] 13802Xfml nitrogen [Mass/Vol]mg/dLLow8-26[facility] Comment on above:Performed By: #### [id number], [id number], [id number] #### [facility] (DEFAULT) [address] [place] [address] 46716rTTO Non AA59 mL/min/1.52e7Ghfkvdp Interpretation [facility] HospitalComment on above:Performed By: #### [id number], [id number], [id number] #### [facility] (DEFAULT) [address] [place] [address] 84377tDGX AA>60Invalid Interpretation [facility] Comment on above:Performed By: #### [id number], [id number], [id number] #### [facility] (DEFAULT) [address] [place] [address] 83318HUG w/ Auto Diffon 15-78-3203Jgxcwjabrdd distribution width (RBC) [Ratio]14.2 %Xvoafj82.5-15.0[facility] HospitalComment on above: Performed By: #### [id number], [id number], [id number] #### [facility] (DEFAULT) [address] [place] [address] 17610Wgxeshhdwo (Bld) [Volume fraction]36.9 %Myzjqk59.7-40.4 [facility] OhioComment on above:Performed By: #### [id number], [id number], [id number] #### [facility] (DEFAULT) [address] [place] [address] 36819Plwvmavyey (Bld) [Mass/Vol]13.1 g/uMRrlupi19.3-15.9 [facility] OhioComment on above:Performed By: #### [id number], [id number], [id number] #### [facility] (DEFAULT) [address] [place] [address] 23449Kva Diff?AutoInvalid Interpretation [facility] Comment on above:Performed By: #### [id number], [id number], [id number] #### [facility] (DEFAULT) [address] [place] [address] 31812AET (RBC) [Entitic mass]36 ocLmyh03-29Tkauisqb Hospital Comment on above:Performed By: #### [id number], [id number], [id number] #### [facility] (DEFAULT) [address] [place] [address] 57211YZCD (RBC) [Mass/Vol]36 g/vDPuuhmg75-85Hqpfudfx Hospital Comment on above:Performed By: #### [id number], [id number], [id number] #### [facility] (DEFAULT) [address] [place] [address] 65049QBB (RBC) [Entitic vol]100 uHFtcdox14-611Cqkzxiux Hospital Comment on above:Performed By: #### [id number], [id number], [id number] #### [facility] (DEFAULT) [address] [place] [address] 30287Sejhwxfr184 i37Lznqjh906-888Iqdrabsc HospitalComment on above:Performed By: #### [id number], [id number], [id number] #### [facility] (DEFAULT) [address] [place] [address] 72167Uygcuend mean volume (Bld) [Entitic vol]8.8 fLNormal 6.3-10.2Magrholzer hospital HospitalComment on above:Performed By: #### [id number], [id number], [id number] #### [facility] (DEFAULT) [address] [place] [address] 03334HXY6.70 v98Alktul6.70-5.30Maohiohealth [facility] hospital HospitalComment on above:Performed By: #### [id number], [id number], 8536915 #### [facility] (DEFAULT) [address] [place] [address] 57387CMX8.9 o43Rdqlih0.5-10.5[facility] HospitalComment on above: Performed By: #### [id number], [id number], [id number] #### [facility] (DEFAULT) [address] [place] [address] 60277Mxbtangg Note - Nurseon 73-79-0311Qzfcgmtn Note - NurseDr. Fullam requesting notes from Echo. An echo was ordered by pulmonology on 10/12/24 and unsure if patient ever followed through. But there was an Echo that was completed 05/2021. Did request notes from [facility] for echo that was completed on 06/07/21, no recent echo was completed there. [Electronically Signed on: 04/20/2025 15:00 EDT] Marsha Steele RN [Verified on: 04/20/2025 15:00 EDT] Marsha Steele RNNoUniversity Hospitals Beachwood Medical CenterUA Aamit1lk 19-06-3876YL BacteriaNone NormalSelect Medical Specialty Hospital - Southeast OhioComment on above:Order Comment: Urinalysis Microscopic order added on by Discern Expert Rules system.Performed By: #### [id number], [id number] #### [facility] (DEFAULT) [address] [place] [address] 10948RR RBCNone SeenACMC Healthcare System HospitalComment on above: Order Comment: Urinalysis Microscopic order added on by Good People Expert Rules system.Performed By: #### [id number], [id number] #### [facility] (DEFAULT) [address] [place] [address] 18624LF Squam EpiModerateACMC Healthcare System HospitalComment on above:Order Comment: Urinalysis Microscopic order added on by Good People Expert Rules system.Performed By: #### [id number], [id number] #### [facility] (DEFAULT) [address] [place] [address] 15934MC WBC0-2NormalSalem City Hospital HospitalComment on above:Order Comment: Urinalysis Microscopic order added on by Good People Expert Rules system. Performed By: #### [id number], [id number] #### [facility] (DEFAULT) [address] [place], [place] [address]UA w Culture if Ind Standardon 21-33-7475Vmedenlihg UA NormalSelect Medical Specialty Hospital - Southeast OhioComment on above:Performed By: #### [id number], [id number] #### [facility] (DEFAULT) [address] [place], [place] [id number] (U)YellowOhioHealth Grady Memorial HospitalComment on above: Performed By: #### [id number], [id number] #### [facility] (DEFAULT) [address] [place] [address] 84221Kvszevt?NoNormalSalem City Hospital HospitalComment on above:Result Comment: Result created by rule GL_MAGR_ADD_UA_CULT Result created by rule GL_MAGR_ADD_UA_CULT1Performed By: #### [id number], [id number] #### [facility] (DEFAULT) [address] [place] [address] 52561Lunjobn (U) [Mass/Vol]NegativeOhioHealth Grady Memorial Hospital Comment on above:Performed By: #### [id number], [id number] #### [facility] (DEFAULT) [address] [place] [address] 58017Hpeapvu Ql (U)NegativeNormalMagruder HospitalComment on above:Performed By: #### [id number], [id number] #### [facility] (DEFAULT) [address] [place] [address] 17586Kapfu?IndicatedInvalid Interpretation CodeMagruder HospitalComment on above:Result Comment: Result created by rule GL_MAGR_ADD_UA_MICROPerformed By: #### [id number], [id number] #### [facility] (DEFAULT) [address] [place] [address] 19756GT BilirubinNegativeNormalMagruder HospitalComment on above:Performed By: #### [id number], [id number] #### [facility] (DEFAULT) [address] [place] [address] 55965AU BloodNegativeNormalNEGATIVEMagruder HospitalComment on above:Performed By: #### [id number], [id number] #### [facility] (DEFAULT) [address] [place] [address] 47884XE ClarityCLEARNormalCLEARMagruder HospitalComment on above:Performed By: #### [id number], [id number] #### [facility] (DEFAULT) [address] [place] [address] 97835FG Leuk EstSMALLAbnormalNEGATIVEMagruder HospitalComment on above:Performed By: #### [id number], [id number] #### [facility] (DEFAULT) [address] [place] [address] 73551JQ NitriteNegativeNormalNEGATIVEMagruder HospitalComment on above:Performed By: #### [id number], [id number] #### [facility] (DEFAULT) [address] [place] [address] 34095ES pH6.3Hndyiy4-2Mfonhrsj HospitalComment on above: Performed By: #### [id number], [id number] #### [facility] (DEFAULT) [address] [place] [address] 43531TA ProteinNegativeNormalNEGATIVESelect Medical Specialty Hospital - Southeast OhioComment on above:Performed By: #### [id number], [id number] #### [facility] (DEFAULT) [address] [place] [address] 51126UY Spec Grav1.438Yiuwiz4.001-1.035[facility] - Southeast OhioComment on above:Performed By: #### [id number], [id number] #### [facility] [address] [place] [address] 98702PV Urobilinogen0.2 mg/dLNormal0.2-1.0[facility] Hospital Comment on above:Performed By: #### [id number], [id number] #### [facility] (DEFAULT) [address] [place] [address] 90390Qrshc SourceClean CatchNormalSelect Medical Specialty Hospital - Southeast OhioComment on above:Performed By: #### [id number], [id number] #### [facility] (DEFAULT[facility] [address] [place] [address] [id number] Bone Length Studies Scanogramson 57-56-0674ID Bone Length Studies ScanogramsEXAMINATION: XR Bone Length Studies Scanograms HISTORY: Left [...] Mamie Coombs MD 04/22/25 2:06 pm Technologist: KRISTANDay[facility] lung screeningon 35-87-7829KY lung screeningC[facility] [place] [address] CT Scan Report Signed Patient: Rock Herrera MR#: [id number] 738 : 1970 Acct:[id number] Age/Sex: 54 / F ADM Date: 04/13/25 Loc: CT Room: Type: [facility] Attending Dr: CARRILLO Boyd APRN Copies to: Valarie Herrera APRN, ACNP-BC Ordering Provider: Valarie Herrera APRN, ACNP-BC Date of Service: 04/13/25 CT/CT [...] Jr., D.ODanica 04/13/2025 2:14 PM Dictation Location: [place] [address] Transcribed By: [facility] 04/13/25 1414 Dictated By: Champ Hobson Jr, DO 04/13/25 1413 Signed By: 04/13/25 1414[facility] Physician GroupHeart and Vascular Office/Clinic Noteon 26-48-2867Aiavt and Vascular Office/Clinic NoteHeart and Vascular Office/Clinic Note Chief Complaint Surgical [...] visit. She did have 1 episode of pinchingpain in her anterior chest that she went to the ED for and cardiac pain was ruled out and patient was diagnosed with a strained muscle. That is the only time she has had this pain anytime recently. Normal coronary arteries in 2020 seen on heart cath. Patient has chronic [...] denies dizziness/lightheadedness, and swelling in lower legs. REVIEWED PRIOR NOTE FROM 01/30/2024: At last visit, patient saw Dr. Solis at which time he continued her on Coreg and diltiazem for SVTand cleared her for needed surgery. Patient reports [...] did not show any concerning rhythms. However, patienthas pretty low heart rate in the office today and based on other vitals at [facility], suggest that she decrease carvedilol from 25 mg twice daily down to 12.5 mg twice daily. Continue with current dose of diltiazem at 180. Ordered: carvedilol, 12.5 mg = 1 tab(s), Oral, BID, # 180 tab(s), Refills(s) 3, Pharmacy: [facility], 163, cm, 03/19/25 13:49:00 EDT, Height/Length Dosing, 71.5, kg, 03/19/25 14:01:00 EDT, Maykel (morecontent not included)...German HospitalComment on above:Result Comment: Electronically Signed By: Nella NORRIS, En Jerome\.br\Date and Time Signed: 03/19/25 14:48 EDTAmbulatory Visit Summaryon 06-14-5408Jtcpvgluzf Visit SummaryAmbulatory Visit Summary ROCK HERRERA :1970 Visit Date:03/17/2025 Ambulatory [...] release (05/07/2018), Right tarsal tunnel release (02/15/2016), Leftinstep plantar fasciotomy with division of soft tissue & fascia & muscle. (08/17/2015), right instep plantar fasciotomy with division of muscle and fascia (06/22/2015), Appendectomy, Arthroscopy of knee, Breast surgery, Carpal tunnel release, Cholecystectomy, Colonoscopy, Colonoscopy, Esophagogastroduodenoscopy, Esophagogastroduodenoscopy, ESWL of kidney, Excision of ganglion cyst, Hystere ctomy, ingrown toenail removal, Lithotripsy, Mortons neuroma, salpingectomy [...] NORRIS, En Jerome [facility]: [facility] Medications What How Much When Instructions Unchanged [...] BY MOUTH THREE TIMES A DAY NEEDED FORANXIETY Unchanged aripiprazole (Abilify) 15 Milligram By Mouth [...] (Vomiting) Calan (Palpitations, Vo (more content not included)...NormalFisher [facility] Harbor HospitalUrology Office/Clinic Noteon 18-12-3916Inrjsox Office/Clinic NoteUrology Office/Clinic Note Chief Complaint fu HPI Staff [...] work-up. Advised patient if at any point shedoes not want to have cysto complete, then will need to sign refusal form. She verbalizes understanding. All questions answered. -Reschedule cystoscopy. The risks and benefits for cystoscopy have been discussed. The risks include bleeding, infection, and irritation of the bladder and urinary channel, among others. The patient,after being informed of procedural details and after questions have been answered, wishes to proceed. Full informed consent has been obtained. Will order Local anesthesia. Pt has multiple abx allergies so will discuss w PRW, may opt against pre-op abx. -Patient to call [facility] to complete SILVANA & KUB -F/U pending cysto 3. History of kidney stones (Z87.442: Personal history of urinary calculi) Last visit, KUB/SILVANA ordered for hematuria and hx of stones. Pt has had a lot of CTs so trying to limit radiation. -See #2 4. Former smoker (Z87.981: Personal history of nicotine dependence) Shares she quit. Smoker x 30 years. Increased risk of urothelial CA. Orders: Urnls Dip Stick Auto w/o Microscopy POC 02488 Follow-up With When Contact Information Sofiya Villa [...] Esophagogastroduodenoscopy (03/29/2022), Peroneal tendon (11/08/2021), Esophagogastroduodenoscopy (06/26/2021), U (more content not included)...Normal [facility] CenterComment on above:Result Comment: Electronically Signed By: Daisy NORRIS, Sofiya\.br\Date and Time Signed: 03/17/25 16:36 EDTDRUG SCREEN, URINEon [id number]/METHAMPNegativeNormalNegativeProGalion Hospitalca [facility] Ambulatory PPGComment on above:Result Comment: AMPH/METH screening cut off = 1000 ng/mLPerformed By: #### DSU #### [facility] ([facility]) [address] [place] [address] VIRBARBITURATESNegativeNormalNegativeSelect [facility] Ambulatory PPGComment on above:Result Comment: Barbiturates screening cut off value = 200 ng/mLPerformed By: #### DSU #### [facility] ([facility]) [address] [place] [address] VIRBENZODIAZEPINESPositiveAbnormalNegativeSelect [facility] Ambulatory PPGComment on above:Result Comment: Benzodiazepines screening cut off value = 200 ng/mLPerformed By: #### DSU #### [facility] ([facility]) [address] [place] [address] VIRCANNABINOIDSNegativeNormalNegativeSelect [facility] Ambulatory PPGComment on above:Result Comment: Cannabinoids/THC screening cut off value = 50 ng/mLPerformed By: #### DSU #### [facility] ([facility]) [address] [place] [address] VIRCOCAINE METABOLITENegativeNormalNegativeSelect [facility] Ambulatory PPGComment on above:Result Comment: Cocaine screening cut off value = 300 ng/mLPerformed By: #### DSU #### [facility] ([facility]) [address] [place] [address] VIRECSTASYNegativeNormalNegativeSelect [facility] Ambulatory PPGComment on above:Result Comment: Ecstasy screening cut off value = 500 ng/mL Performed By: #### DSU #### [facility] ([facility]) [address] [place] [address] VIRMETHADONENegativeNormalNegativeProWright-Patterson Medical Center Ambulatory PPGComment on above:Result Comment: Methadone screening cut off value = 300 ng/mL.Performed By: #### DSU #### [facility] ([facility]) [address] [place] [address] VIROPIATESNegativeNormalNegativeSelect [facility] Ambulatory PPGComment on above:Result Comment: Opiates screening cut off value = 300 ng/mL This test is used for the detection of codeine, hydrocodone (>1000 ng/mL), morphine and hydromorphone (>900 ng/mL) in urine.Performed By: #### DSU #### [facility] ([facility]) [address] [place] [address] VIROXYCODONENegativeNormalNegativeSelect [facility] Ambulatory PPGComment on above:Result Comment: Oxycodone screening cut off value = 300 ng/mL This test is used for the detection of oxycodone and oxymorphone in urine.Performed By: #### DSU #### [facility] ([facility]) [address] [place] [address] VIRPHENCYCLIDINENegativeNormalNegativeSelect [facility] Ambulatory PPGComment on above:Result Comment: Phencyclidine screening cut off value = 25 ng/mLPerformed By: #### DSU #### [facility] ([facility]) [address] [place] [address] VIRDrug Screen, Urineon [id number] Screen method >1000 ng/mL Ql (U)NegativeNegativeCorey Hospitalca Health SystemComment on above: AMPH/METH screening cut off = 1000 ng/mLBarbiturates Screen Ql (U)Negative NegativeProGalion Hospitalca Health SystemComment on above:Barbiturates screening cut off value = 200 ng/mLBenzodiazepines Ql (U)PositiveAbnormalNegativeCorey Hospitalca Health SystemComment on above:Benzodiazepines screening cut off value = 200 ng/mL Cocaine Ql (U)NegativeNegativeCorey Hospitalca Health SystemComment on above:Cocaine screening cut off value = 300 ng/mLInterpretation and review of laboratory resultsAbnormGeisinger Medical Center SystemMethadone (Mec) [Mass/Mass]Negative NegativePremier Health Miami [facility] South Health SystemComment on above:Methadone screening cut off value = 300 ng/mL.Methylenedioxymethamphetamine Screen Ql (U)NegativeNegative [facility] Healtha Health SystemComment on above:Ecstasy screening cut off value = 500 ng/mLOpiates Ql (U)NegativeNegativePremier Health [facility] South Health SystemComment on above: Opiates screening cut off value = 300 ng/mL This test is used for the detection of codeine, hydrocodone (>1000 ng/mL), morphine and hydromorphone (>900 ng/mL) in urine. oxyCODONE [Mass/Vol]NegativeNegativePremier Health Miami [facility] South Health SystemComment on above: Oxycodone screening cut off value = 300 ng/mL This test is used for the detection of oxycodone and oxymorphone in urine. Phencyclidine Screen method >25 ng/mL Ql (U)NegativeNegativeCorey Hospitalca Health SystemComment on above:Phencyclidine screening cut off value = 25 ng/mL Tetrahydrocannabinol Screen method >50 ng/mL Ql (U)NegativeNegativeCorey Hospitalca Health SystemComment on above:Cannabinoids/THC screening cut off value = 50 ng/mLBrecksville VA / Crille Hospital SystemPOCT Hemoglobin H5qYlrueds By: Amaris Hiltno on [id number] (Bld) [Mass fraction]5.3 %4 - 7 %[facility] ProMedica Health SystemTRAMADOL AND METABOLITE, Uon 03-16-2025 [id number] ng/mLNormalCutoff:[address] [place] [address] Ambulatory PPG Comment on above:Result Comment: ADDITIONAL INFORMATION Testing performed by Liquid Chromatography-Tandem Mass Spectrometry (LC-MS/MS). This test was developed and its performance characteristics determined by [facility] in a manner consistent with CLIA requirements. This test has not been cleared or approved by the U.S. Food and Drug Administration. Test Performed by: [facility] [address] [place] [address] Acid Maker: Natasha Marshall Ph.D.; CLIA# [id number] By: #### TRAMU #### [facility] ([facility]) [address] [place] [address] [id number] ng/mLNormalCutoff:[address] [place] [address] Ambulatory PPGComment on above:Performed By: #### TRAMU #### [facility] ([facility] [address] [place] [address] VIRH&P Updateon 02-23-2025H&P UpdateH&P Update Patient: ROCK HERRERA Age: 54 years Sex: Female : 1970 Associated Diagnoses: None Author: LILI WALSH, Donaldo Moreira Basic Information Pre-Op Diagnosis: Gross hematuria, Urge incontinence Proposed Surgery: Cystoscopy I have reviewed the History and Physical and examined the patient for changes. Based upon my assessment, the patient may proceed with the planned procedure. Health Status Procedure history: Carpal tunnel release (651062850) on 08/03/2024 at 54 Years. Ulnar carpal complex ligament (570918560) on 08/03/2024 at 54 Years. Epidural injection of lumbar spine using fluoroscopic guidance (5132328151) on 12/11/2023 at 53 Years. Comments: 01/01/2024 11:15 EDT - Gaby LAZO, Victoria Ctoo L4-L5 no relief, made worse Colonoscopy (983373632) on 01/17/2023 at 52 Years. right 3rd metatarsal deformity repair w/screw (57191540) on 11/21/2022 at 52 Years. Right 2nd, 3rd, 4th hammer toe repair w/k-wire (380269201) on 11/21/2022 at 52 Years. Esophagogastroduodenoscopy (670339989) on 03/29/2022 at 51 Years. Comments: 03/29/2022 12:42 Justina Garcia RN esophageal dilation, small gastric bezoar Peroneal tendon (487491345) on 11/08/2021 at 51 Years. Comments: 11/08/2021 14:20 Padmini Pimentel LPN right peroneal tendon repair with synovectomy Esophagogastroduodenoscopy (358836082) on 06/26/2021 at 50 Years. Comments: 06/26/2021 11:15 LIZZETTE THRASHER RN dilation Urodynamics (598260263) on 05/16/2021 at 50 Years. Colonoscopy (722406276) on 03/14/2020 at 49 Years. Catheterization of left heart (378953126) on 03/03/2020 at 49 Years. Comments: 03/03/2020 14:22 Galo Ruby RN diagnostic Removal of toenail (612771433) on 10/22/2018 at 48 Years. Comments: 10/22/2018 11:23 Corine Lee RN RIGHT GREAT AND FIFTH DIGIT PERMANENT NAIL AVULSION Excision of Downey's neuroma (6489910164) on 10/22/2018 at 48 Years. Comments: 10/22/2018 11:24 Corine Lee RN EXCISION OF NEUROMA LEFT FOOT Tarsal tunnel release (124928503) on 05/07/2018 at 47 Years. Comments: 05/07/2018 13:21 Joyce Rae RN left Right tarsal tunnel release on 02/15/2016 at 45 Years. Left instep plantar fasciotomy with division of soft tissue & fascia & muscle. on 08/17/2015 at 45 Years. right instep plantar fasciotomy with division of muscle and fascia on 06/22/2015 at 44 Years. Tubal ligation (259556031). Hysterectomy (948421114). Carpal tunnel release (233319756). Comments: 06/16/2015 15:17 SRIKANTH Hall RN, Brenda x 2 Ulnar nerve decompression (164798065). Comments: 06/16/2015 15:19 SRIKANTH Hall RN, Brenda x 2 Sinus (1326235137). Comments: 06/16/2015 15:26 SRIKANTH Hall RN, Brenda x 2 Mortons neuroma (4642708010). Comments: 06/16/2015 15:27 SRIKANTH Hall RN, Brenda x 6 Tarsal tunnel (63855653). Comments: 06/16/2015 15:27 SRIKANTH Hall RN, Brenda x 2 Lithotripsy (464417635). Appendectomy (574360949). Breast surgery (9151444988). Comments: 06/16/2015 15:29 SRIKANTH Hall RN, Brenda x 2 - removal of milk ducts Suspension of bladder (0062843). Colonoscopy (382529325). Esophagogastroduodenoscopy (814367036). ingrown toenail removal. Comments: 08/09/2015 13:46 JUDIE Blake RN, Chelsea x3 Cholecystectomy (61929803). Arthroscopy of knee (000651270). salpingectomy with unilateral oophorectomy. ESWL of kidney (01278482). Excision of ganglion cyst (6622532504). Esophagogastroduodenoscopy (734659409). Comments: 09/06/2022 13:43 JUDIE Gilman RN, Shahnaz Antral erosions Colonoscopy (973834438). Ulnar nerve at elbow (496097178). Social History Social & Psychosocial Habits Alcohol [...] Never Comment: tamiko. - 10/12/2022 13:40 - Nereyda LAZO, Vanessa [...] Palpitations. Ibuprofen- Rash. L (more content not included)...German HospitalComment on above:Result Comment: Electronically Signed By: LILI WALSH, Donaldo Myers.rosi\Date and Time Signed: 02/23/25 07:59 EDTPatient Letter FTon [id number] Letter [facility] February 23, 2025 ROCK HERRERA [address] [place] [address] : 1970 Dear Rock Herrera , You [...] cancellations. Sincerely, [facility] Dr. Donaldo Pearson German HospitalH&P Updateon 02-18-2025H&P Update H&P Update Patient: ROCK HERRERA Age: 54 years Sex: Female : 1970 Associated Diagnoses: None Author: Donaldo PEARSON MD Basic Information Pre-Op Diagnosis: Gross Hematuria, Urge Incontinence Proposed Surgery: Cystoscopy I have reviewed the History and Physical and examined the patient for changes. Based upon my assessment, the patient may proceed with the planned procedure. Health Status Procedure history: Carpal tunnel release (089911289) on 08/03/2024 at 54 Years. Ulnar carpal complex ligament (581349205) on 08/03/2024 at 54 Years. Epidural injection of lumbar spine using fluoroscopic guidance (2475872416) on 12/11/2023 at 53 Years. Comments: 01/01/2024 11:15 EDT - Gaby LAZO, Victoria Coto L4-L5 no relief, made worse Colonoscopy (603770900) on 01/17/2023 at 52 Years. right 3rd metatarsal deformity repair w/screw (09526456) on 11/21/2022 at 52 Years. Right 2nd, 3rd, 4th hammer toe repair w/k-wire (005521127) on 11/21/2022 at 52 Years. Esophagogastroduodenoscopy (292250194) on 03/29/2022 at 51 Years. Comments: 03/29/2022 12:42 EDT - Justina Nassar RN esophageal dilation, small gastric bezoar Peroneal tendon (146262832) on 11/08/2021 at 51 Years. Comments: 11/08/2021 14:20 EDT Padmini Andersen LPN right peroneal tendon repair with synovectomy Esophagogastroduodenoscopy (080933205) on 06/26/2021 at 50 Years. Comments: 06/26/2021 11:15 LIZZETTE THRASHER RN dilation Urodynamics (085140490) on 05/16/2021 at 50 Years. Colonoscopy (266327296) on 03/14/2020 at 49 Years. Catheterization of left heart (321257047) on 03/03/2020 at 49 Years. Comments: 03/03/2020 14:22 Galo Ruby RN diagnostic Removal of toenail (799756503) on 10/22/2018 at 48 Years. Comments: 10/22/2018 11:23 Corine Lee RN RIGHT GREAT AND FIFTH DIGIT PERMANENT NAIL AVULSION Excision of Downey's neuroma (8188279525) on 10/22/2018 at 48 Years. Comments: 10/22/2018 11:24 Corine Lee RN EXCISION OF NEUROMA LEFT FOOT Tarsal tunnel release (925423411) on 05/07/2018 at 47 Years. Comments: 05/07/2018 13:21 Joyce Rae RN left Right tarsal tunnel release on 02/15/2016 at 45 Years. Left instep plantar fasciotomy with division of soft tissue & fascia & muscle. on 08/17/2015 at 45 Years. right instep plantar fasciotomy with division of muscle and fascia on 06/22/2015 at 44 Years. Tubal ligation (343424146). Hysterectomy (400332290). Carpal tunnel release (248011183). Comments: 06/16/2015 15:17 SRIKANTH Hall RN, Brenda x 2 Ulnar nerve decompression (757205629). Comments: 06/16/2015 15:19 Brenda Ramirez RN x 2 Sinus (9960819565). Comments: 06/16/2015 15:26 Brenda Ramirez RN x 2 Mortons neuroma (8024587847). Comments: 06/16/2015 15:27 Brenda Ramirez RN x 6 Tarsal tunnel (92758039). Comments: 06/16/2015 15:27 Brenda Ramirez RN x 2 Lithotripsy (457836044). Appendectomy (442932422). Breast surgery (6685241460). Comments: 06/16/2015 15:29 EDT - Isabel RN, Brenda x 2 - removal of milk ducts Suspension of bladder (2808773). Colonoscopy (481691776). Esophagogastroduodenoscopy (039245145). ingrown toenail removal. Comments: 08/09/2015 13:46 JUDIE Blake RN, Chelsea x3 Cholecystectomy (00848491). Arthroscopy of knee (827429074). salpingectomy with unilateral oophorectomy. ESWL of kidney (64855096). Excision of ganglion cyst (2184531275). Esophagogastroduodenoscopy (865434063). Comments: 09/06/2022 13:43 JUDIE Gilman RN, Shahnaz Antral erosions Colonoscopy (902797091). Ulnar nerve at elbow (002434905). Social History Social & Psychosocial Habits Alcohol 08/13/2024 Risk Assessment: Low Risk 08/13/2024 Frequency: 1-2 times per year Comment: tamiko - 01/22/2020 16:25 - Al CARTAGENA,RN, Mora Coto 08/13/2024 Use: Never Comment: denkrish. - 10/12/2022 13:40 - Vanessa Dawn RN [...] Geodon- Palpitations. Ibuprofen- Ra (more content not included)...[facility] Comment on above:Result Comment: wrong fin Electronically Signed By: Donaldo PEARSON MD Ankle - right 3 Viewson 50-87-9521Spuleeo Result: Negative fractures visualized with notable large enthesophyte and notable hardware fixation to forefootPerry County Memorial Hospital HealthcareRadiology Study observation (narrative)[facility] Cytology ([facility])on 70-93-3456Crsvt CytologyDiagnosis InfoInvalid Interpretation [facility] HospitalComment on above:Result Comment: A:Urine,Clean Catch:Bladder Wash Interpretation - Adequate cellularity for evaluation. CPT 53220 MicroScopic Description - Adequacy - Gross Description Site ID:A color light Yellow fixative Alcohol Specimen designated Clean Catch received in alcoholpreservative and labeled with the patient???s name, consists of 70ml clear light yellow fluid. Electronically signed by : on: 01/26/2025 12:55:27Performed By: #### [id number] #### [facility] [address] [place], [place] [address]Lyqlcxzgfa Visit Summaryon [id number] Visit Summary Ambulatory Visit Summary ROCK HERRERA :1970 Visit Date:01/21/2025 Ambulatory [...] release (05/07/2018), Right tarsal tunnel release (02/15/2016), Leftinstep plantar fasciotomy with division of soft tissue & fascia & muscle. (08/17/2015), right instep plantar fasciotomy with division of muscle and fascia (06/22/2015), Appendectomy, Arthroscopy of knee, Breast surgery, Carpal tunnel release, Cholecystectomy, Colonoscopy, Colonoscopy, Esophagogastroduodenoscopy, Esophagogastroduodenoscopy, ESWL of kidney, Excision of ganglion cyst, Hystere ctomy, ingrown toenail removal, Lithotripsy, Mortons neuroma, salpingectomy [...] Appointments Follow Up with [facility] When: Comments: For procedure as scheduled. Where: Medications What How Much When Instructions New mirabegron (Myrbetriq 50 mg oral tablet, extended release) 1 Tablets By Mouth Every day Duration: 30 Days Refills: 11 Pickup at [facility] Unchanged solifenacin (solifenacin 10 mg Tab) 1 [...] BY MOUTH THREE TIMES A DAY NEEDED FORANXIETY Contact prescribing physician if questions or concerns [...] solution) 225 Milligram Subcuta (more content not included)...German HospitalUrine Cytology ([facility])on [id number] Method of ExtractionBladder Urine German HospitalComment on above:Performed By: #### [id number] #### [facility] [address] [place], [place] [address]IF Number of Lsyw3Qbjsvrg Interpretation CodeRegional Medical CenterComment on above:Performed By: #### [id number] #### [facility] [address] [place], [place] [address]NY SpecimenClean CatchNoLicking Memorial HospitalComment on above:Performed By: #### [id number] #### [facility] [address] [place], [place] [address]EU Type of ServiceTechnical OnlyGerman HospitalComment on above:Performed By: #### [id number] #### [facility] [address] [place], [place] [address]Eeypaag Office/Clinic Noteon [id number] Office/Clinic NoteUrology Office/Clinic Note HPI Staff 54 yr old [...] E&M of Est. Patient Moderate 30-39 Min 03122 Influenza immunization status assessed 1030F Medication list [...] Urnls Dip Stick Auto w/o Microscopy POC 76974 2. History of kidney stones (Z87.442: Personal history of urinary calculi) Recent flank pain and gross hematuria. All sx have resolved. Pt has had a lot of CTs so we will try to limit radiation. KUB/SILVANA for stones. Ordered: Body Mass Index (BMI) documented 3008F Current tobacco smoker 1034F Depression Screening Negative 3352F E&M of Est. Patient Moderate 30-39 Min 08493 Influenza immunization status assessed 1030F Medication list [...] Urnls Dip Stick Auto w/o Microscopy POC 35242 3. Gross hematuria (R31.0: Gross hematuria) Intermittent [...] among others. The patient, after being informed ofprocedural details and after questions have been answered, wishes to proceed. Full informed consenthas been obtained. Will order Local anesthesia. Pt has multiple abx allergies so will discuss w PRW, may opt against pre-op abx. Ordered: E&M of Est. Patient Moderate 30-39 Min 61694 Urine Cytology ([facility]) Orders: mirabegron, 50 mg = 1 tab(s), Oral, Daily, X 30 day(s), # 30 tab(s), Refills(s) 11, Pharmacy: [facility], 163, cm, 01/21/25 11:57:00 EDT, Height/Length Dosing, 70, kg, 01/21/25 11:57:00 EDT, Weight Dosing Follow-up With When Contact Information [facility] Additional Instructions: For procedure as scheduled. Patient Education Kidney Stones, Tpcc-fb-Scvu Problem List/Past Medical History Ongoing Anxiety BMI 30.0-30.9,adult Change in bowel habits Colon polyp Depression Dysuria Esophageal spasm Family history of colorectal cancer Fecal incontinence Feeling of incomplete bladder emptying Flank pain Foreign body in stomach, sequela Gastric (more content not included)...German HospitalComment on above:Result Comment: Electronically Signed By: SHERI JIMENES PA-C\.rosi\Date and Time Signed: 01/21/2518:50 EDTXR ankle RT min 3V*on 27-99-2354GU ankle RT min 3V*[facility] [place] [address] [place] [address] XRay Report Signed Patient: Rock Herrera MR#: [id number] 738 : 1970 Acct:[id number] Age/Sex: 54 / F ADM Date: 01/02/25 [facility] Attending Dr: Sofiya Brown APRN Copies to: Sofiya Brown APRN Ordering Provider: [...] Alvarez M.D. 01/02/2025 1:17 PM Dictation Location: [facility] Transcribed By: [facility] 01/02/25 1317 Dictated By: Solo Alvarez DO 01/02/25 1313 Signed By: 01/02/25 1317[facility] Physician GroupMICROALBUMIN / CREATININE URINE RATIOon 92-23-1069Lubjrvq DL <= 20 mg/L (U) [Mass/Vol]mg/dLNormal0.0-1.9 [facility] Ambulatory PPGComment on above:Performed By: #### AMI #### [facility] ([facility]) [address] [place] [address] VIRMALB/CREAT RATIONormalSelect [facility]ulatory [facility] Comment on above:Result Comment: Urine Microalbumin / Creatinine ratio not calculated due to non-numeric component.Performed By: #### AMI #### [facility] ([facility]) [address] [place] [address] VIRURINE CREATININE,RDM56.03 mg/dLNoUCLA Medical Center, [facility] Ambulatory PPGComment on above:Performed By: #### MALBU #### [facility] ([facility]) [address] [place] [address] FEY88ot [id number] called and states she can not move appt due to being on fixed income and does not have the gas money. Patient is going to call PCP to see if they will fill the medication. Patent is keeping upcoming appt the same. No further action needed.[facility]36on [phone] to call office back to reschedule appointment to sooner appointmentNormalUOur Lady of Mercy Hospital36Lvm to have patient come into office before we can refill RX, please move appointment up when patietn comes backNormOhioHealth Hardin [facility] Hospital 36Patient is calling asking for refill of Tramadol. [phone]g Memorial HospitalOrders Onlyon [phone] [id number] Rock Herrera 1970 F Date Provider Department Center 12/07/2024 85814-TQSRCJETHRO GAXIOLA ORTHO MPORTHO No family history on fileNormalUniversSamaritan North Health CenterTelephoneon [id number] Rock Herrera 1970 Date Provider Department Center 12/07/2024 803-YAMILETH SAEED ORTHO MPORTHO No family history on fileNormalUniversregency hospital [facility] of [facility] CenterTelephone [phone] Rock Herrera 1970 Date Provider Department Center 12/07/2024 Raman-NATHAN DIANE ORTHO MPORTHO No family history on file Reason for Visit and Comments: Medication [Other][facility]36on Patient called asking for Tramadol to be refilled and to let you know her Pharmacy closes at 1730No[facility]36Patient called to request refill on Please see pended medication. Pharmacy Varied- [facility] - [place], [place] - [address] [facility] 234 [facility] [address] Patient Good # [phone] of [facility] Medical CenterOrders Only on [phone] [id number] Rock Herrera 1970 F Date Provider Department Center 11/30/2024 50865-DJETFJETHRO VILLA MP ORTHO MPORTHO No family history on fileNormalUniversity of [facility] Medical CenterTelephoneon [id number] Rock Herrera 1970 F Date Provider Department Center 11/30/2024 3625YURI HODGES MP ORTHO MPORTHO No family history on fileNormalUniversSamaritan North Health Center36on [phone] informed.[facility] HospitalOrders Onlyon 47-58-1614Xabucc [id number] Rock Herrera 1970 F Date Provider Department Center 11/25/2024 69545-MMHVNJETHRO VILLA MP ORTHO MPORTHO No family history on fileNormalUniversregency hospital clevel[facility] east of [facility]36on [phone] called from the [facility] and states they did not receive tramadol script can you please resend? Thank you!![facility]36Patient called to request refill on Tramadol Please see pended medication. Pharmacy Varied- [facility] [place], [place] - [address] [place] [id number] Patient Good # [phone]g Memorial HospitalRefillon [id number] Rock Herrera 1970 F Date Provider Department Center 11/24/2024 PHIL LIANG MP ORTHO MPORTHO No family history on file Reason for Visit and Comments: Med Refill [[id number]][facility]36on Patient called to request refill on Tramadol Please see pended medication. Pharmacy Varied- [facility] - [place], [place] - [address] [facility] [address] [facility] [place] [address] Patient Good # [phone] of [facility] CenterRefillon [id number] Rock Herrera 1970 F Date Provider Department Center 11/16/2024 PHIL LIANG MP ORTHO MPORTHO No family history on file Reason for Visit and Comments: Med Refill [[id number]][facility]Reg[facility] echo transthoracicon 07-01-3449NZL echo transthoracicCLEVEL[facility] Main [address] [address] Echocardiogram Signed Patient: Rock Herrera MR#: [id number] : 1970 Acct:[id number] Age/Sex: 54 / F ADM Date: 11/13/24 Loc: Room: Type: [facility] Attending Dr: CARRILLO Boyd APRN Ordering Provider: Valarie Herrera APRN, ACNP-BC Date of Service: 11/13/24 ECH/ECH echo transthoracic: R06.02 - Shortness of breath Copies to: Molina Leon MD, [facility] Valarie Herrera APRN, ACNP-BC RDCS, RVT BSA: 1.8 m2 [...] systole: 3.0 mmHg Measurements from QLAB BSA (): 1.8 m2 CI (HM): ED Mass (HM): LAEF (): 46.0 % 1.9 l/min/m2 123.0 grams __ GERSON (): LAVmax (HM): LAVmin (HM): 21.0 mlPat Height (HM): 22.0 ml/m2 38.0 ml 163.0 cm __ Pat Weight (HM): 71.2 kg QLAB Heart Model EDV (HM)_phl: 120.0 ml EF (HM)_phl: 65.0 % ED Current (HM)_phl: 60.0 % ESV (HM)_phl: 42.0 ml HR (HM)_phl: 44.0 BPMES Current (HM)_phl: 30.0 % LV Length ED (HM)_phl: 79.0 mmSV (HM)_phl: 79.0 ml ED Default (HM)_phl: 60.0 % LV Length ES ()_phl: 63.0 mm ES Default ()_phl: 30.0 % Electronically si (more content not included)...[facility] Physician Pbypm40vc [phone] is requesting a refill of Tramadol.Normal [facility]36on [phone] called to request refill on 11-06-24 Please see pended medication. Pharmacy [address] [facility] [address] Patient Good # [phone] [facility] FoundationRefillon [id number] Rock Herrera 1970 F Date Provider Department Center 11/06/2024 75259-JFVTGTCORY MCCOLLUM MP ORTHO MPORTHO No family history on file Reason for Visit and Comments: Med Refill [[id number]]NormalKettering Health Main CampusFollow-Upon 00-13-0031Uudavf-[id number] Rock Herrera 1970 F Date Provider Department Center 11/03/2024 LAN HAGEN MP ORTHO MPORTHO No family history on file Level of Service:74514 AL OFFICE/OUTPATIENT ESTABLISHED SF MDM 10 MIN () Reason for Visit and Comments: Follow-up [021768] Pain [136] Follow-up [235051] Pain [136]NormalKettering Health Main Campus36on [phone] called to request refill on 10-27-24 Please see pended medication. Pharmacy Varied- [facility] - [place], [place] - [address] [facility] [address] [facility] [address] [facility] [address] Patient Good # [phone]g Memorial HospitalOrders Only on 12-36-8882Gtxhyn [id number] Rock Herrera Carmina 1970 F Date Provider Department Center 10/27/2024 79172-JURRZIGLLKUNBRIGID HOLLOWAYMP ORTHO MPORTHO No family history on fileNormalUniKettering Memorial HospitalRefillon [id number] Rock Herrera Carmina 1970 Date Provider Department Center 10/27/2024 3625-YURI MILLER MP ORTHO MPORTHO No family history on file Reason for Visit and Comments: Med Refill [[id number]][facility] HospitalDRUG SCREEN, URINEon 78-96-4513KXFLTAYFILI/METHAMPNegativeNormalNEGProMedica Mathews HospitalComment on above:Result Comment: AMPH/METH screening cut off = 1000 ng/mLPerformed By: #### DSU #### [facility] ([id number]) [address] [facility], [address] [place], [place] [address]DQUZZPUQJOSADptlvimeHqurqlRKMJkiWrpgsb Mathews HospitalComment on above:Result Comment: Barbiturates screening cut off value = 200 ng/mLPerformed By: #### DSU #### [facility] ([id number]) [address], [address] [place], [place] [address]TYEVKNAEDURZQHVWujnmdtfRwwtvwufNOIRdcSljnrx [facility] Comment on above:Result Comment: Confirmation available upon request. Benzodiazepines screening cut off value = 200 ng/mLPerformed By: #### DSU #### [facility] ([id number]) [address], [address] [place], [place] [address]FIGNEONMBGQIFnqfmpgyLunzfaFGCJrlUpagih [place] HospitalComment on above:Result Comment: Cannabinoids/THC screening cut off value = 50 ng/mL Performed By: #### DSU #### [facility] ([id number]) [address], [address] [place], [place] [address]MCHAVZT METABOLITENegativeNounc hospitals hillsborough campusNEGMercy Health Comment on above:Result Comment: Cocaine screening cut off value = 300 ng/mL Performed By: #### DSU #### [facility] ([id number]) [address], [address] [place], [place] [address]XNMEDPRYggrzwucWfvsdqHUDPpaKblaqz [place] HospitalComment on above:Result Comment: Ecstasy screening cut off value = 500 ng/mL This report is intended for use in clinical monitoring or management of patients.Performed By: #### DSU #### [facility] ([id number]) [address], [address] [place], [place] [address]BIMRDBHVNMuuabpdiUqzlpvYRRFvoFzksjo [facility] HospitalComment on above:Result Comment: Methadone screening cut off value = 300 ng/mL.Performed By: #### DSU #### [facility] ([id number]) [address], [address] [place], [place] [address]DCSFPQPUwnrlceuQojakyHDJJgxZngqyk [facility] HospitalComment on above:Result Comment: Opiates screening cut off value = 300 ng/mL NOTE: This test is used for the detection of codeine, hydrocodone (>1000 ng/mL), morphine and hydromorphone (>900 ng/mL) in urine.Performed By: #### DSU #### [facility] ([id number]) [address] [place] [address], [address] [place], [place] [address]OMOWHUUGKGcupexhbFunkwuvlOWHJzoZbjqmt [facility] HospitalComment on above:Result Comment: Confirmation available upon request. Oxycodone screening cut off value = 300 ng/mL NOTE: This test is used for the detection of oxycodone and oxymorphone in urine.Performed By: #### DSU #### [facility] ([id number]) [address] [place] [address], [address] [place], [place] [address]JAQXGNQZTECRQWkerpqnhKulzugLPZAovGqpjhp [facility] HospitalComascension st[facility] on above:Result Comment: Phencyclidine screening cut off value = 25 ng/mL Performed By: #### DSU #### [facility] ([id number]) [address] [place] [address], [address] [place], [place] [address] [phone] called to request refill on oxycodone Please see pended medication. Pharmacy [facility]- [address] [place] [address] Patient Good # [phone]g Memorial HospitalOrders Only on 59-55-4199Kwybef [id number] Rock Herrera 1970 Date Provider Department Center 10/20/2024 67389-KPAJAZZQFZZGSUMMER HOLLOWAY ORTHO MPORTHO No family history on fileNormalUniKettering Memorial HospitalRefillon [id number] Rock Herrera 1970 Date Provider Department Center 10/20/2024 MARYANA REGALADO MP ORTHO MPORTHO No family history on file Reason for Visit and Comments: Med Refill [[id number]][facility]36on Patient called to request refill on 10-13-24 Please see pended medication. Pharmacy Varied- [facility] - [place], [place] - [address] [facility] [address] [facility] [address] [facility] [address] Patient Good # [phone]g Memorial HospitalOrders Only on 76-94-6947Ggavhh [id number] Rock Herrera 1970 F Date Provider Department Center 10/13/2024 45362-AYNYTOCIKTZZSUMMER HOLLOWAY ORTHO MPORTHO No family history on fileNormOhioHealth Hardin Memorial HospitalRefillon [id number] Rock Herrera 1970 Date Provider Department Center 10/13/2024 47209-KPSXRECORY MCCOLLUM MP ORTHO MPORTHO No family history on file Reason for Visit and Comments: Med Refill [[id number]][place] [address] [facility] patient will have to get CT done here call and left message for patient to schedule at [facility]36[facility] radiology called and would like to know the protocol for the lt knee ct for the [facility]. Patient is scheduled for Saturday, but they would like a response by Saturday the if possible. Please return call at [phone] can ask for caden or Cici[address] [phone] called to request refill on oxycodone Please see pended medication. Pharmacy Varied- [facility] - [place], [place] - [address] [facility] [address] [facility] [address] [facility] [address] Patient Good # [phone] Wert County HospitalOrders Only on 20-05-5817Nsrvze [id number] Rock Herrera 1970 Date Provider Department Center 10/06/2024 47214-GCLSPQXCTZNHPONCHO HOLLOWAY*MP ORTHO MPORTHO No family history on fileNormalUniKettering Memorial HospitalRefillon [id number] Rock Herrera 1970 F Date Provider Department Center 10/06/2024 Yen4-MARYANA VILLA MP ORTHO MPORTHO No family history on file Reason for Visit and Comments: Med Refill [[id number]][facility]36on Patient called in for pain medication refill and got sent gabapentin states she is allergic to gabapentin and can't take it.[facility]36Patient called to request refill on 09-29-24 Please see pended medication. Pharmacy Varied- Medicine [place] [address] Patient Good # [phone]g Memorial HospitalMM TOMOSYNTHESIS SCREENING BIon 35-06-8970[place], [place] [address] Mammography Report Signed Patient: ROCK HERRERA MR#: [id number] : 1970 Acct:[id number] Age/Sex: 54 / F ADM Date: 09/29/24 Loc: MAMMO Attending Dr: David Villalobos D.O. Ordering Physician: David Villalobos D.O. Results: Date of Service: 09/29/24 Follow Up: Procedure(s): MM tomosynthesis screening BI Accession Number(s): [id number] cc: David Villalobos D.O.; Nikki Vergara NP Patient Name: ROCK HERRERA MR#: [id number] : 1970 Exam Date: 09/29/2024 Ordering Doctor: DR David Villalobos . RADIOLOGY REPORT PROCEDURE: MM TOMOSYNTHESIS SCREENING BI COMPARISON: MM TOMOSYNTHESIS SCREENING BI, 09/27/2023. MG MAMM DIAGNOSTIC 3D SIXTO CAD, 09/10/2022. INDICATIONS: Screening Calculator Name NCI Breast Cancer Risk Assessment Tool 5 Year Breast Cancer Risk 1.20% Lifetime Breast Cancer Risk 9.00% Personal Breast Cancer No Personal Ovarian Cancer No Treatments None Family Cancers Mother with ovarian cancer at age 60. LOCATION: [facility] BREAST COMPOSITION: The breasts are heterogeneously dense,which [...] Signed By: 09/29/24 1445 DD/ 1444 TD/TT: Lining Maker:TBHRadiology, Radiologist, - 09/29/2024 [place] [address] Mammography Report Signed Patient: ROCK HERRERA MR#: [id number] : 1970 Acct:[id number] Age/Sex: 54 / F ADM Date: 09/29/24 Loc: MAMMO Attending Dr: David Villalobos D.O. Ordering Physician: David Villalobos D.O. Results: Date of Service: 09/29/24 Follow Up: Procedure(s): MM tomosynthesis screening BI Accession Number(s): [id number] cc: David Villalobos D.O.; Nikki Vegrara NP Patient Name: ROCK HERRERA MR#: [id number] : 1970 Exam Date: 09/29/2024 Ordering Doctor: DR David Villalobos . RADIOLOGY REPORT PROCEDURE: MM TOMOSYNTHESIS SCREENING BI COMPARISON: MM TOMOSYNTHESIS SCREENING BI, 09/27/2023. MG MAMM DIAGNOSTIC 3D SIXTO CAD, 09/10/2022. INDICATIONS: Screening Calculator Name NCI Breast Cancer Risk Assessment Tool 5 Year Breast Cancer Risk 1.20% Lifetime Breast Cancer Risk 9.00% Personal Breast Cancer No Personal Ovarian Cancer No Treatments None Family Cancers Mother with ovarian cancer at age 60. LOCATION: [facility] BREAST COMPOSITION: The breasts are heterogeneously dense,which [...] Signed By: 09/29/24 1445 DD/ 1444 TD/TT: Lining Maker: [facility] HealthcareRadiology Study observation (narrative)[facility] HealthcareMM TOMOSYNTHESIS SCREENING BIOrdered By: Radiologist Radiology on 49-39-1744[facility] Work Phone: Orders Onlyon 84-20-0642Rswbat [id number] Rock Herrera Carmina 1970 F Date Provider Department Center 09/29/2024 45604-CCRSKWUBLJGCSUMMER HOLLOWAY No family history on fileNormalUniversSamaritan North Health CenterRefillon [id number] BarbiRock abdalla 1970 F Date Provider Department Center 09/29/2024 75514-MCBWYCCORY MCCOLLUM MP ORTHO MPOANH No family history on file Reason for Visit and Comments: Med Refill [[id number]]NormalUnCleveland Clinic Mentor HospitalFollow-Upon 40-61-7698Rctdsj-[id number] DerrickYangRock J 1970 F Date Provider Department Center 09/28/2024 433-JOSSELINE ABAD MP ORTHO MPORTHO No family history on file Level of Service:40651 AL OFFICE/OUTPATIENT ESTABLISHED MOD MDM 30 MIN (GC,57) Reason for Visit and Comments: Pain [136]NormalUnCleveland Clinic Mentor Hospital36on 99-25-998283Gbhslg derik no answer unable to leave messageNormalUniKettering Memorial Hospital36Joe from [facility] radiology is wondering if there is anything different he needs to do for the CT for the Lynda knee surgery or if it is the same protocol. Phone number [phone]g Memorial HospitalFollow-Upon 09-22-2024 Follow-[id number] Rock Herrera 1970 F Date Provider Department Center 09/22/2024 LAN HAGEN MP ORTHO MPOHO No family history on file Level of Service:02639 AL POSTOP FOLLOW UP VISIT RELATED TO ORIGINAL PX (GC) Reason for Visit and Comments: Follow-up [219188]NormalKettering Health Main CampusCOMPREHENSIVE METABOLIC PANELon 08-96-7906Fzrgbiq [Mass/Vol]4.2 g/dLNormal3.2-5.3ProMedica [facility]ult[facility] Alliance Community HospitalComment on above:Performed By: #### ALEXI LOCO, 47179-2 #### [facility] ([id number]) [address], [address] [place], [place] [address]RNX [Catalytic activity/Vol]96 U/WYwyqli58-143DdzUhtjjy [facility] HospitalComment on above:Performed By: #### ALEXI LOCO, 33364-9 #### [facility] ([id number]) [address], [address] [place], [place] [address]LKP [Catalytic activity/Vol]15 U/LNormal0-31ProMedNewark Hospital HospitalComment on above:Performed By: #### ALEXI LOCO, 11980-7 #### [facility] ([id number]) [address], [address] [place], [place] [address]Agbcz gap [Moles/Vol]11 mmol/LNormal5-15ProMedica [facility] HospitalComment on above:Performed By: #### ALEXI LOCO 38729-3 #### [facility] ([id number]) [address], [address] [place], [place] [address]LCI [Catalytic activity/Vol]22 U/LNormal0-41ProMedica Kim HospitalComment on above:Performed By: #### ALEXI LOCO 70515-2 #### [facility] ([id number]) [address], [address] [place], [place] [address]Vvwrddyml [Mass/Vol]0.5 mg/dLNormal0.3-1.2ProMedica Kim HospitalComment on above:Performed By: #### ALEXI LOCO 53426-3 #### [facility] ([id number]) [address], [address] [place], [place] [address]Lshcxxj [Mass/Vol]10.0 mg/dLNormal8.5-10.5ProMedica Kim HospitalComment on above:Performed By: #### ALEXI LOCO 76314-9 #### [facility] ([id number]) [address], [address] [place], [place] [address]Cdmtxutx [Moles/Vol]101 mmol/QTwubym48-493FxbGgxtma [place] HospitalComment on above:Performed By: #### ALEXI LOCO, 78246-9 #### [facility] ([id number]) [address], [address] [place], [place] [address]YW4 [Moles/Vol]29 mmol/HYchchs28-23MkkPnaohl [facility] Comment on above:Performed By: #### ALEXI LOCO, 43867-5 #### [facility] ([id number]) [address], [address] [place], [place] [address]Qaciqedryn [Mass/Vol]0.95 mg/dLNormal0.40-1.00ProMedica Kim HospitalComment on above:Result Comment: METHOD TRACEABLE TO IDMS STANDARD Performed By: #### ALEXI LOCO, 93113-8 #### [facility] ([id number]) [address] [address] [place], [place] [address]NBU/1.73 sq M.predicted among non-blacks MDRD (S/P/Bld) [Vol rate/Area]71 mL/min/{1.73_m2}Normal>59ProOhiohealth Pickerington Methodist HospitalComment on above: Result Comment: Reported eGFR is based on the CKD-EPI 2020 equation that does not use a race coefficient.Performed By: #### ALEXI LOCO, 39427-7 #### [facility] ([id number]) [address] [address] [place], [place] [address]Ezaojqh [Mass/Vol]113 mg/fBNywg35-99UqfHsotcbOhiohealth Pickerington Methodist Hospital Comment on above:Performed By: #### ALEXI LOCO, 09032-7 #### [facility] ([id number]) [address] [address] [place], [place] [address]Thwoksyxs [Moles/Vol]3.6 mmol/LNormal3.5-5.0ProOhiohealth Pickerington Methodist HospitalComment on above:Performed By: #### ALEXI LOCO, 64459-2 #### [facility] ([id number]) [address] [address] [place], [place] [address]Wytnzar [Mass/Vol]7.5 g/dLNormal6.0-8.0[facility] Comment on above:Performed By: #### ALEXI LOCO, 21270-4 #### [facility] ([id number]) [address] [address] [place], [place] [address]Fefetk [Moles/Vol]141 mmol/STdjwhf053-367QrkYkjipr [facility] HospitalComment on above:Performed By: #### ALEXI LOCO, 38055-3 #### [facility] ([id number]) [address] [facility], [address] [place], [place] [address]Hhof nitrogen [Mass/Vol]4 mg/dLLow5-23[facility] Comment on above:Performed By: #### [place], [address]-8 #### [facility] ([id number]) [address] [facility], [address] [place], [place] [address]DNPE SCREEN, URINEon 22-60-3452DOHQXABDCMD/METHAMPNegativeNormal NEGProOhiohealth Pickerington Methodist HospitalComment on above:Result Comment: AMPH/METH screening cut off = 1000 ng/mLPerformed By: #### DSU #### [facility] ([id number]) [address] [facility], [address] [place] [address]GIAMSODFIYFHQsyzrideFrtipfIAWWbuCgcsgu [facility] HospitalComment on above:Result Comment: Barbiturates screening cut off value = 200 ng/mLPerformed By: #### DSU #### [facility] ([id number]) [address] [facility], [address] [place] [address]XEHDQWWXCKRNWQELwfgvkboTypwchwxIBMLacBsorgm [facility] Comment on above:Result Comment: Confirmation available upon request. Benzodiazepines screening cut off value = 200 ng/mLPerformed By: #### DSU #### [facility] ([id number]) [address] [facility], [address] [place] [address]ZRTWPQODQJGDXpqbznwjDxxogxHSWPxnZbkank [facility] HospitalComment on above:Result Comment: Cannabinoids/THC screening cut off value = 50 ng/mL Performed By: #### DSU #### [facility] ([id number]) [address] [facility], [address] [place] [address]AYJCYWB METABOLITENegativeNewfieldNEGMercy Health Comment on above:Result Comment: Cocaine screening cut off value = 300 ng/mL Performed By: #### DSU #### [facility] ([id number]) [address] [facility], [address] [place], [place] [address]ASSNDZRHojojvihVasggbNOXGopRoyuvm [facility] HospitalComment on above:Result Comment: Ecstasy screening cut off value = 500 ng/mL This report is intended for use in clinical monitoring or management of patients.Performed By: #### DSU #### [facility] ([id number]) [address], [address] [place], [place] [address]ABCVFCXUVZhygogvyNxbknqSNKOamZdqysm [facility] HospitalComment on above:Result Comment: Methadone screening cut off value = 300 ng/mL.Performed By: #### DSU #### [facility] ([id number]) [address], [address] [place], [place] [address]GWCIGCGNjuzgzbdOxradeIVUGapDrciiv [facility] HospitalComment on above:Result Comment: Opiates screening cut off value = 300 ng/mL NOTE: This test is used for the detection of codeine, hydrocodone (>1000 ng/mL), morphine and hydromorphone (>900 ng/mL) in urine.Performed By: #### DSU #### [facility] ([id number]) [address] [facility], [address] [place], [place] [address]CQJIGUPXQIivtgxxlAfmdbihzZKZRpsImllny [facility] HospitalComment on above:Result Comment: Confirmation available upon request. Oxycodone screening cut off value = 300 ng/mL NOTE: This test is used for the detection of oxycodone and oxymorphone in urine.Performed By: #### DSU #### [facility] ([id number]) [address], [address] [place], [place] [address]TADFIXMXJEGXUIqygehubIbokreUOHSvwPjskpz [facility] HospitalComment on above:Result Comment: Phencyclidine screening cut off value = 25 ng/mL Performed By: #### DSU #### [facility] ([id number]) [address], [address] [place], [place] [address]SKM A1C (GLYCO-HGB)on 94-57-3757Nfvnxzp [Mass/Vol]126 mg/dL NormalProOhiohealth Pickerington Methodist HospitalComment on above:Performed By: #### ALEXI LOCO, 66443-5 #### [facility] ([id number]) [address] [address]FbY5u (Bld) [Mass fraction]6.0 %High4.4-5.6ProOhiohealth Pickerington Methodist HospitalComment on above:Result Comment: NOTE ADA Guidelines Result HgbA1c Normal : less than 5.7 % Prediabetes : 5.7 % to 6.4 % Diabetes : > 6.4 % Use with caution in patients with abnormal hemoglobin variants as the half-life of red blood cells and in vivo glycation rates are affected.Performed By: #### ALEXI LOCO, 96022-5 #### [facility] ([id number]) [address] [address]Wyfcz [facility] panelon 22-96-1067Ythbjedyamh [Mass/Vol]165 mg/dL Zgaypg515-162ExoUwtxfi [facility] HospitalComment on above:Performed By: #### ALEXI LOCO, 12422-4 #### [facility] ([id number]) [address] [address]Ysxcsmqtadl in HDL [Mass/Vol]42 mg/dLNormal>39ProOhiohealth Pickerington Methodist HospitalComment on above:Result Comment: HDL <40 mg/dL - High Risk HDL > or = 40mg/dL- Desirable HDL >60 mg/dL - Negative Risk Performed By: #### ALEXI LOCO, 41404-7 #### [facility] ([id number]) [address] [address]Fkbebtfntij in LDL [Mass/Vol]67 mg/dLNormal<130ProSelect [facility], [facility] HospitalComment on above:Result Comment: LDL <100 mg/dL - Desirable LDL >160 mg/dL - High Risk Performed By: #### ALEXI LOCO, 06707-3 #### [facility] ([id number]) [address], [address] [place], [place] [address]Wjzryjfmngw in VLDL [Mass/Vol]56 mg/dLHigh0-30ProSelect [facility] HospitalComment on above:Performed By: #### ALEXI LOCO, 86120-5 #### [facility] ([id number]) [address], [facility] [address] [place], [place] [address]WLYZCWYZICU:HDL3.9Fslprl1.0-5.0Pro[facility] HospitalComment on above:Performed By: #### ALEXI LOCO, 79710-0 #### [facility] ([id number]) [address], [address] [place], [place] [address]Sgndvhnnyeju [Mass/Vol]281 mg/xNAcyt34-855ShuEgnlrl [place] HospitalComment on above:Performed By: #### ALEXI LOCO, 71015-8 #### [facility] ([id number]) [address], [address] [place], [place] [address]ot 25-08-886855Gyrgdse called to request refill on Percocet Please see pended medication. [facility]- [facility] Patient Good # [phone] [facility]36Patient called and needs a refill on pain medicationNormalUniversity of Brooke Army Medical CenterOrders Onlyon 21-01-8698Trfptv [id number] Rock Herrera 1970 F Date Provider Department Center 09/08/2024 01915-AAJLWRNKUECOPONCHO HOLLOWAY*MP ORTHO MPORTHO No family history on fileNormalUniversity of Brooke Army Medical CenterRefillon [id number] Rock Herrera 1970 F Date Provider Department Center 09/08/2024 803-CHRISTOPHE DONALChiara MP ORTHO MPORTHO No family history on fileNormalUniversity of [facility] Center36on 95-85-241800Dlstgnc refilledNormalUniversSamaritan North Health Center36Patient would like a refill of her pain medicationNormalUniversity of [facility]36Patient called to request refill on percocet 5-325 mg. Please see pended medication. Pharmacy Varied- [facility]5 - [facility] 234 [facility] 234 [facility] [address] [facility]/pharmacy #[id number] - [place], [place] - [address] [facility] [address] [place] [id number] Patient Good # [phone] of [place] Medical CenterOrders Only on 66-79-9878Gbquzq [id number] Rock Herrera 1970 F Date Provider Department Center 08/31/2024 21563-BTCELSSTBGZQSUMMER HOLLOWAY ORTHO MPORTHO No family history on fileNormalUniversity of Brooke Army Medical CenterRefillon [id number] Rock Herrera 1970 F Date Provider Department Center 08/31/2024 438LAN ZAVALA MP ORTHO MPORTHO No family history on file Reason for Visit and Comments: Med Refill [214613][facility]36on Patient called stated she needs a refill of her pain medicationsNormalUniversSamaritan North Health CenterOrders Onlyon 46-24-3154Yfdhxn [id number] Rock Herrera 1970 F Date Provider Department Center 08/24/2024 20510-WEAIWPRDYRQQSUMMER CANELA No family history on fileNormalUniversity of Brooke Army Medical CenterFollow-Upon 88-94-9390Tpkaal-[id number] DerrickRock 1970 F Date Provider Department Center 08/17/2024 JOSSELINE NGUYEN MP ORTHO MPORTHO No family history on file Level of Service:41011 AL OFFICE/OUTPATIENT ESTABLISHED MOD MDM 30 MIN Reason for Visit and Comments: New Patient [632] Pain [136][facility]Office [facility] 08-17-2024 Follow-up [id number] Rock Herrera 1970 Provider Department Center 08/17/2024 LAN HAGEN MP ORTHO MARYHO No family history on file Level of Service:59170 AL POSTOP FOLLOW UP VISIT RELATED TO ORIGINAL PX Reason for Visit and Comments: Pain [136] Post-op [483][facility] HospitalOrders Onlyon 08-17-2024 Orders [id number] Stephanie Herreragordy Grewal 1970 Provider Department Center 08/17/2024 23523-REKFGYCUCOXUPONCHO HOLLOWAY*CYNTHIA DAVEY No family history on [facility]/Clinic Noteon 65-71-1335Fnhkm and Vascular Office/Clinic Note Heart and Vascular Office/Clinic Note Chief Complaint 6 month F/U History of Present Illness Patient is a 53-year-old female with past medical history of hypertension, hyperlipidemia, and SVT,on Cardizem and carvedilol. Patient comes in for [...] (11/21/2022), Metatarsal (11/21/2022), Esophagogastroduodenosc (more content not included)...German HospitalComment on above:Result Comment: Electronically Signed By: Anoop WALSH, Kehinde Thibodeaux\.rosi\Date and Time Signed: 08/13/24 13:28 AOM89nc 02-05-071905Dedzxsq called and checked the status of her medication. Adoption Coordinator informed her Dr. Rubi is not in the office and will get to it as soon as possible.NormalKettering Health Main [facility]36[facility]36Patient called requesting refill. Patient called to request refill on Perocoet Please see pended medication. Pharmacy [facility]- [facility] Patient Good # [phone]g Memorial Hospital36Patient called again today stating that the pharmacy has not received a script for the Percocet 5-325 mg. Please advise. Thank you.[facility] HospitalOrders Onlyon 00-73-8417Kxvhbr [id number] Rock Herrera 1970 F Date Provider Department Center 08/10/2024 66796-BZVUXOVPPOUMAR CARDONA [facility] SURG Second Fl No family history on fileNormalUniversSamaritan North Health Center36on 19-60-150230Wtryl was put in and pharmacy was changed, waiting for approval [facility] HospitalOrders Onlyon 21-02-9836Tkvqcb Only [id number] Rock Herrera 1970 F Date Provider Department Center 08/08/2024 803-YAMILETH SAEED MP ORTHO MPORTHO No family history on fileNormalUniversSamaritan North Health Center36on 13-19-758054Luhuebl states she needs her medication transferred to the [facility] in [facility] states [facility] the [facility] [place] [address] Please contact patient with any problems or concerns at [phone] City Hospital36Patient called to request refill on Percocet Please see pended medication. Pharmacy [facility]- [facility] [place] [address] Patient Good # [phone] of [place] Medical CenterIGP,APTIMA HPV,AGE GDLNon 73-84-2943QUQ GDLN ACOG TESTINGNote.NOMS HealthcareComment on above:TESTS RESULT FLAG UNITS REF RANGE LAB Clinician Provided Cytology Information Source.............Vagina No. of containers..01 ThinPrep Vial Age Algo ACOG Nubia... 3065 FLAG LEGEND: L-Low Normal,H-High Normal,LL-Alert Low,HH-Alert High <-Panic Low,>-Panic High,A-Abnormal,AA-Critical Abnormal Performed at: 01 =[address] [address] Estelle Mckeon MD, HPV APTIMANegativeNegativeNOMS HealthcareComment on above:This nucleic acid amplification test detects fourteen high- risk HPV types (16,18,31,33,35,39,45,51,52,56,58,59,66,68) without differentiation. Performed at: =[address] [id number] Acid Maker: Estelle Mckeon MD, Phone: [phone] Performed at: [address] [id number] Acid Maker: Estelle Mckeon MD, Phone: [phone] IGP, APTIMA HPV, RFX 16/18,45Note.NOMS HealthcareComment on above:TESTS RESULT FLAG UNITS REF RANGE LAB DIAGNOSIS: 02 NEGATIVE FOR INTRAEPITHELIAL LESION OR MALIGNANCY. Specimen adequacy: 02 Satisfactory for evaluation. Performed by: Edwina Vasquez Host/Hostess Ground (ASCP) . 02 Note: Note 02 The [...] High,A-Abnormal,AA-Critical Abnormal Performed at: 02 [address] [facility] [address] [address] Estelle Mckeon MD, SPATULA-ALONE VAGINA CLINISYNCNOMS [facility] HospitalAnesthesiaon [id number] Rock Herrera 1970 F Date Provider Department Center 08/03/2024 65694-IPWWH, GISELE MCCLELLAN OR OLIVIA No family history on fileNormalUniversity of [facility] 35-06-4373CWXldtcso Of Present Illness Rock Herrera is a [...] Heart valve disease, Hyperlipidemia, Hypertension, Myocardial infarction (CMS/HCC), and Sleep apnea. Surgical History She has [...] products, Iodinated contrast media, Ketorolac, Other, Paroxetine, Sulfamethoxazole-trimethoprim, Amitriptyline, Atomoxetine, Bupropion, Doxycycline, Gabapentin, Meloxicam, Oxcarbazepine, Ropinirole, Ziprasidone, Aloe, Dexamethasone (pf), Duloxetine, Eicosapentaenoic acid, Methocarbamol, Milnacipran, Moxifloxacin-sod.chloride(iso), Sodium chloride-aloe vera, Adhesive, Adhesive tape-silicones, Fluticasone [...] revision to submuscular ulnar nerve transposition left elbowNormalUniversSamaritan North Health Center NURSNOTEon 44-96-6124NUKITESQPnqaer at bedside RN reviewed discharge and gave copy.[facility] HospitalOPNOTEon 91-04-0791UEHHGEFdnfkbzhq Note Patient: Rock Herrera Date of Surgery: 08/03/2024 : 1970 Pre-operative Diagnosis: 1. Recurrent Cubital Tunnel Syndrome (ulnar neuropathy) left Elbow, 2. Recurrent carpal tunnel syndrome left hand Post-operative Diagnosis: same Operation: Submuscular Transposition of Ulnar Nerve left Elbow (40790) Carpal Tunnel Release left Hand (96719) Surgeon: Lan Rubi MD Tobacco Wrapping Machine Tender: Radha Whitley MD Staff: Audiovisual Tech: Luca Cabrera RN; Champ Sheehan RN Relief Scrub: Shelby Davis, IMTIAZ Scrub Person: Valery Myles, IMTIAZ Orientee Scrub: Ramakrishna Gillespie RN Anesthesia Type: [...] to the level of the [place]. We carefully released the ulnar nerve through [...] and the flexor origin is repaired with opjqrc-tg-eeqhd sutures of 2-0 Vicryl. The fasci (more content not included)...NormalUnCleveland Clinic Mentor HospitalPOCT GLUCOSE METER UNSOLICITED RESULTSon 69-64-7929Ssvmtuv [Mass/Vol]132 mg/rJIsrx78-629LmzabnifbfCleveland Clinic Mentor HospitalComment on above:Order Comment: Waived Testing in the ED is performed under the ED CLIA certificate #[id number].Result Comment: ilan Performed By: #### [id number] #### [facility] ([facility]) [address] [place], [place] [address] [id number] DATE:08/03/24 Medications to take Morning of surgery: Carvedilol [...] THE FOLLOWING ARE NOT AVAILABLE: An adult class c driver over the age of 18, that [...] lenses. Do not wear perfume, make-up, nail bolivian, or lotions on the day of your [...] need to make any changes, please call [phone]. Notify your surgeon if you develop any illness such as a cold, cough, fever, sore throat or vomiting between now and your surgery. Thank you for entrusting us with your care. [facility] Surgical Services TeamNormalUniversity of Brooke Army Medical CenterAbstracton [id number] Rock Herrera 1970 Date Provider Department Center 07/23/2024 803-YAMILETH SAEED MP MPORTHO No family history on fileNormalUniversity [facility]36on 89-09-218947Drsii number is the wrong number, the number [phone] is out of order, and spoke with patient and she gave me the same number, called number it rang one time and the message: the number you dialed is not in service at this time and hung up.[facility]36Attempted to call again to get this report, they sent me to a new number [phone], and the report will be sent over.[phone] [facility] this morning to have it faxedNormalUnivers[address] [phone] to call Dr. Sanchez to get the office to fax over the EMG results so we have it for the peer to peerNormalUniversity [place] Clinic FoundationTelephoneon 70-05-0900Inudwktub71000366 Rock Herrera 1970 F Date Provider Department Center 07/20/2024 803-YAMILETH SAEED MP ORTHO MPORTHO No family history on fileNormalUniversity [place] Clinic FoundationCBC AND AUTO DIFFon 51-45-9603KJEMFFYI BASOPHIL0.0 X10E9/LNormal0.0-0.2ProMedLucile Salter Packard Children's Hospital at StanfordComment on above:Performed By: #### CBCA, CMP, 3040-3, 09818-6, 12346-7 ####[facility] ([id number])[address] [place] [address] 34209EZLLUIBL NEUTROPHIL9.9 X10E9/LHigh1.5-6.6ProFaith Community HospitalComment on above:Performed By: #### CBCA, CMP, 3040-3, 08836-7, 96164-7 ####[facility] ([id number])[address] [place] [address]Avhhibewr/100 WBC (Bld)0.3 %NormalProFaith Community HospitalComment on above:Performed By: #### CBCA, CMP, 3040-3, 20742-2, 59269-3 ####[facility] ([id number])[address] [place] [address]Rlkgddwhhdy (Bld) [#/Vol]0.2 10*3/uLNormal0.0-0.4ProFaith Community HospitalComment on above:Performed By: #### CBCA, CMP, 3040-3, 27781-5, 68855-4 ####[facility] ([id number])[address] [place] [address]Brgtkzqjgwu/100 WBC (Bld)1.6 %NormalProFaith Community HospitalComment on above:Performed By: #### CBCA, CMP, 3040-3, 80941-2, 06981-0 ####[facility] ([id number])[address] [place] [address] 957[address]Ypjpbfugtwn distribution width (RBC) [Ratio]14.9 %Normal 11.5-15.0ProFaith Community HospitalComment on above:Performed By: #### CBCA, CMP, 3040-3, 83631-6, 40630-7 ####[facility] ([id number])[address] [place] [address]Krorqqsgfq (Bld) [Volume fraction]42.7 %Qkkzag25-83LfgPseyjtKindred Hospital DaytonComment on above:Performed By: #### SHIVANI, CMP, 3040-3, 25262-8, 28857-8 ####[facility] ([id number])[address] [place] [address] 79915Iztlpdosei (Bld) [Mass/Vol]14.6 g/fVSozawr38.7-15.5PSalem Regional Medical CenterComment on above: Performed By: #### SHIVANI, BERONICA, 3040-3, 82422-3, 42311-9 ####[facility] ([id number])[address] [place] [address] Lymphocytes (Bld) [#/Vol]3.7 10*3/uLHigh1.0-3.5PSalem Regional Medical CenterComment on above:Performed By: #### SHIVANI, BERONICA, 3040-3, 48577-9, 48160-7 ####[facility] ([id number])[address] [place] [address] 87114Jxalnmuflpn/100 WBC (Bld)25.3 %NormalKindred Hospital DaytonComment on above:Performed By: #### SHIVANI, BERONICA, 3040-3, 76480-7, 40977-3 ####[facility] ([id number])[address] [place] [address] 11161CPU (RBC) [Entitic mass]33.6 vzJkauwb60-35IsmZiexrqKindred Hospital DaytonComment on above:Performed By: #### CBCA, CMP, 3040-3, 02318-6, 80202-4 ####[facility] ([id number])[address] [place] [address] 72837MZGD (RBC) [Mass/Vol]34.3 g/eKPkyfsw86-60KquUdypdy Parish HospitalComment on above:Performed By: #### CBCA, CMP, 3040-3, 64570-6, 23202-5 ####[facility] ([id number])[address] [place] [address] 34098PJJ (RBC) [Entitic vol]98 vINeycdy07-498RseBxqlzq [facility]remont HospitalComment on above:Performed By: #### CBCA, CMP, 3040-3, 06941-8, 09913-0 ####[facility] ([id number])[address] [place] [address] 80546Jbzaoeovu (Bld) [#/Vol]0.9 10*3/uLNormal0-0.9[facility] Comment on above:Performed By: #### CBCA, CMP, 3040-3, 03294-9, 08441-1 ####[facility] ([id number])[address] [place] [address] 22823Ejjcellrg/100 WBC (Bld)5.8 %NormalProFaith Community HospitalComment on above:Performed By: #### CBCA, CMP, 3040-3, 33713-1, 37407-1 ####[facility] ([id number])[address] [place] [address] 12037Yodztqsecsq/100 WBC (Bld)67.0 %NormalKindred Hospital DaytonComment on above:Performed By: #### CBCA, CMP, 3040-3, 66556-4, 18267-8 ####[facility] ([id number])[address] [place] [address] 48654Eouuquxe mean volume (Bld) [Entitic vol]8.5 fLNormal7-12 ProMedicKaiser Permanente Medical CenterComment on above:Performed By: #### CBCA, CMP, 3040-3, 12384-2, 78335-9 ####[facility] ([id number])[address] [place] [address] [place] [address]Zlainkecb (Bld) [#/Vol]228 10*3/uLNormal 150-450Kindred Hospital DaytonComment on above:Performed By: #### SHIVANI, CMP, 3040-3, 50544-8, 68513-9 ####[facility] ([id number])[address] [place] [address] 37[address]MIE COUNT4.35 X10E12/LNormal3.80-5.20 Kindred Hospital DaytonComment on above:Performed By: #### SHIVANI, CMP, 3040-3, 62826-5, 86845-3 ####[facility] ([id number])[address] [place] [address] 72825HOA (Bld) [#/Vol]14.8 10*3/uLHigh4.0-11.0 Kindred Hospital DaytonComment on above:Performed By: #### SHIVANI, CMP, 3040-3, 48056-6, 71014-6 ####[facility] ([id number])[address] [place] [address] 03004KIQZMZNHNKVEC METABOLIC PANELon 07-07-2024 Albumin [Mass/Vol]3.9 g/dLNormal3.2-5.3PSalem Regional Medical CenterComment on above:Performed By: #### SHIVANI, CMP, 3040-3, 56924-9, 42301-4 ####[facility] ([id number])[address] [place] [address]WYO [Catalytic activity/Vol]104 U/OSgfapf52-360AuuSxiiqvKindred Hospital Dayton Comment on above:Performed By: #### SHIVANI, CMP, 3040-3, 65959-0, 98025-5 ####[facility] ([id number])[address] [place] [address] [place] [address]OYP [Catalytic activity/Vol]27 U/LNormal0-31PSalem Regional Medical CenterComment on above:Performed By: #### BERONICA PARRISH, 3040-3, 81553-7, 15377-0 ####[facility] ([id number])[address] [place] [address], [place] [address]Npmzv gap [Moles/Vol]10 mmol/LNormal5-15ProFaith Community HospitalComment on above:Performed By: #### SHIVANI, BERONICA, 3040-3, 70834-5, 43279-5 ####[facility] ([id number])[address] [place] [address], [place] [address]MLD [Catalytic activity/Vol]19 U/LNormal0-41ProFaith Community HospitalComment on above:Performed By: #### BERONICA PARRISH, 3040-3, 47768-9, 76206-7 ####[facility] ([id number])[address] [place] [address], [place] [address]Fnooghoka [Mass/Vol]0.6 mg/dLNormal0.3-1.2PSalem Regional Medical CenterComment on above:Performed By: #### BERONICA PARRISH, 3040-3, 82086-2, 00058-4 ####[facility] ([id number])[address] [place] [address], [place] [address]Xhqyhuc [Mass/Vol]9.7 mg/dLNormal8.5-10.5PSalem Regional Medical CenterComment on above:Performed By: #### SHIVANI, BERONICA, 3040-3, 98858-8, 24477-8 ####[facility] ([id number])[address] [place] [address], [place] [address]Zhnuhezz [Moles/Vol]101 mmol/XRpcsdh74-420HjoIsloddFaith Community HospitalComment on above:Performed By: #### SHIVANI, BERONICA, 3040-3, 75851-2, 12108-5 ####[facility] ([id number])[address] [place] [address] 389[address]LZ5 [Moles/Vol]26 mmol/WOymhvw73-48LhxZaqvji [facility]remont HospitalComment on above:Performed By: #### BERONICA PARRISH, 3040-3, 42078-1, 69458-3 ####[facility] ([id number])[address] [place] [address] 860[address]Zvnkzlggua [Mass/Vol]0.95 mg/dLNormal0.40-1.00ProFaith Community HospitalComment on above:Result Comment: METHOD TRACEABLE TO IDMS STANDARDPerformed By: #### BERONICA PARRISH, 3040-3, 27866-9, 93801-1 ####[facility] ([id number])[address] [place] [address]KYO/1.73 sq M.predicted among non-blacks MDRD (S/P/Bld) [Vol rate/Area]72 mL/min/{1.73_m2}Normal>59ProFaith Community HospitalComment on above:Result Comment: Reported eGFR is based on the CKD-EPI 2020 equation that does not use a race coefficient.Performed By: #### BERONICA PARRISH, 3040-3, 62465-0, 85123- 5 ####[facility] ([id number])[address] [place] [address] 040[address]Hwbltwa [Mass/Vol]152 mg/vEFxxm24-89ItiJypwvbFaith Community HospitalComment on above:Performed By: #### BERONICA PARRISH, 3040-3, 84984-0, 89404-1 ####[facility] ([id number])[address] [place] [address]85[address]Weduobkij [Moles/Vol]3.8 mmol/LNormal3.5-5.0ProFaith Community HospitalComment on above:Performed By: #### BERONICA PARRISH, 3040-3, 71591-7, 55125-1 ####[facility] ([id number])[address] [place] [address] 564[address]Fmcrbux [Mass/Vol]7.3 g/dLNormal6.0-8.0ProFaith Community HospitalComment on above:Performed By: #### BERONICA PARRISH, 3040-3, 48504-6, 97245-1 ####[facility] ([id number])[address] [place] [address] 31944Sxxuuc [Moles/Vol]137 mmol/AVmcvrn523-534RxyCgpkmy [facility]remont HospitalComment on above:Performed By: #### BERONICA PARRISH, 3040-3, 22481-2, 47768-9 ####[facility] ([id number])[address] [place] [address] 36[address]Yffq nitrogen [Mass/Vol]9 mg/dLNormal5-23ProFaith Community HospitalComment on above:Performed By: #### BERONICA PARRISH, 3040-3, 52663-0, 88026-8 ####[facility] ([id number])[address] [place] [address] 28[address]MN ABDOMEN AND PELVIS W CONTon 27-21-5743AT ABDOMEN AND PELVIS W CONTCT ABDOMEN AND PELVIS W CONT CT ABDOMEN AND PELVIS W CONT HISTORY: Epigastric abdominal pain, nausea COMPARISON: CT abdomen pelvis 01/23/2024 TECHNIQUE: CT images of abdomen and pelvis obtained following administration of contrast. Automatedexposure control was utilized. All CT scans at [...] No definite hepatic mass or lesion. Portal venoussystem is patent. Surgically absent gallbladder with clips [...] by Alex Varghese MD on 07/07/2024 7:42 PMNormalProFaith Community HospitalFibrin D-dimer DDU (PPP) [Mass/Vol]on 07-07-2024 TUXHS175 ng/mL DDUHigh <255Kindred Hospital DaytonComment on above:Result Comment: Results >=255ng/mL DDU: Results may be indicative of the presence of VTE. The use of the Wells score and further diagnostic tests should be considered. Elevated D-Dimer levels can also be associated with DIC, neoplasm, , trauma and liver disease. Elevated levels of rheumatoid factor may lead to an overestimation of the D-Dimer level.Performed By: #### SHIVANI CMP, 3040-3, 06982-0, 06695-7 ####[facility] ([id number])[address] [place] [address] 59482RMMCKWhe 92-40-7779Olqpyc [Catalytic activity/Vol]23 U/VBvkaaf58-63HttGocribKindred Hospital DaytonComascension st. john hospital on above: Performed By: #### SHANNANA CMP, 3040-3, 02036-7, 28820-6 ####[facility] ([id number])[address] [place] [address] 44771Hdevgfwk I.cardiac High sensitivity method [Mass/Vol]on HOUR TROP I, HIGH SENSITIVITY3 ng/LNormal<16ProFaith Community HospitalComment on above:Performed By: #### 05557-0 ####[facility] ([id number])[address] [place] [address] 08003XBDKXDPA I, HIGH SENSITIVITY3 ng/LNormal<16 ProMedica Western Medical CenterComment on above:Performed By: #### CBCA, CMP, 3040-3, 86927-2, 19261-2 ####[facility] ([id number])[address] [place] [address] 695[address]QICPZ CULTUREon 24-93-0126Nxxscuoo identified Cx Nom (U)CULTURE RESULTS >100,000 ORGANISMS/mL ESCHERICHIA COLI [ S [...] F TOBRAMYCIN S <=1 F TRIMETH/SULFAMETHOXAZOLE S <=09/06 FSusceptibleProFaith Community HospitalComment on above:Performed By: #### 630-4 ####[facility] ([id number])[address] [place] [address], [address], [place] [address]VDK MACROSCOPIC NURon 60-33-9647YKJDIMVXI NURNegativeNormalNEGKindred Hospital DaytonComascension st. john hospital on above:Performed By: #### NUM ####[facility] ([id number])[address] [place] [id number] NURTraceAbnormalNEGKindred Hospital DaytonComment on above:Performed By: #### NUM ####[facility] ([id number])[address] [place] [address], [place] [id number] NURNegativeNormalNEGKindred Hospital DaytonComment on above:Performed By: #### NUM ####[facility] ([id number])[address] [place] [address] [place] [id number] NURNegativeNormalNEGKindred Hospital Dayton Comment on above:Performed By: #### NUM ####[facility] ([id number])[address] [place] [address], [place] [address]FEGOTOTGQ ESTERASE NURNegativeNormalNEGKindred Hospital DaytonComment on above: Performed By: #### NUM ####[facility] ([id number])[address] [place] [address] [place] [address]EENNNFT NURPositiveAbnormalNEGKindred Hospital DaytonComment on above:Performed By: #### NUM ####[facility] ([id number])[address] [place] [address], [place] [address]MS LISA 5.0Qofslq8.0-8.5ProMedica Western Medical CenterComment on above:Performed By: #### NUM ####[facility] ([id number])[address] [place] [address] [place] [address]OSTTINO NUR30 mg/dLAbnormalNEGKindred Hospital Dayton Comment on above:Performed By: #### NUM ####[facility] ([id number])[address] [place] [address], [place] [address]IIULDXDH GRAVITY LISA<=1.218Qkgzjt2.003-1.035Kindred Hospital DaytonComment on above:Performed By: #### NUM ####[facility] ([id number])[address] [place] [address], [place] [address]MOFIRCZJZDWQ NUR0.2 eu/dLNormal<1.1ProMedica Western Medical CenterComment on above:Performed By: #### NUM ####[facility] ([id number])[address] [place] [address]MX CHEST 1 VWon 45-43-3222WA CHEST 1 VWXR CHEST 1 VW Single view chest XR CHEST 1 VW History: Chest pain Comparison: May 18, 2022 Impression: * No consolidation or pleural fluid. No acute findings. Finalized by Alex Varghese MD on 07/07/2024 8:09 PMNormalKindred Hospital DaytonXR KNEE LT 3 VWSon 56-23-0937FR KNEE LT 3 VWSXR KNEE LT 3 VWS CLINICAL HISTORY: Pain and injury Comparison: None Views: 3 views FINDINGS: * Decreased medial compartment joint space with subchondral sclerosis. No fracture or dislocation erosion or periostitis. Mild varus angulation. Soft tissues unremarkable. IMPRESSION: * Advancing osteoarthritis mainly affecting medial compartment. Finalized by En Khan MD on 06/28/2024 2:19 PMNormalKindred Hospital DaytonOffice Visiton 89-66-0546Hjxisj-up [id number] Rock Herrera 1970 F Date Provider Department Center 06/16/2024 [facility] No family history on file Level of Service:95610 AL OFFICE/OUTPATIENT NEW LOW MDM 30 MINUTES Reason for Visit and Comments: Pain [136] New Patient [632]NormalUnCleveland Clinic Mentor HospitalCOMPLETE BLOOD COUNTon 30-54-5966Lmzxwafdkhv distribution width (RBC) [Ratio]14.1 %Zzlodb46.5-15.0 ProMSt. John's Hospital CamarilloComment on above:Performed By: #### 61096-5, CBC, 1988-5, 3016-3, 39150-8, 65722-6, 85493-4 #### [facility] ([id number]) [address], [address] [place], [place] [address]Henbmivcvo (Bld) [Volume fraction]42.9 %Xnzoih27-20IrkTlwuoqKindred Hospital DaytonComment on above:Performed By: #### 31946-3, CBC, 1987-12, 301- 3, 20186-3, 06845-0, 44792-1 #### [facility] ([id number]) [address], [address] [place], [place] [address]Rduwagrsqx (Bld) [Mass/Vol]14.8 g/hBTxgnto08.7-15.5PSalem Regional Medical CenterComment on above:Performed By: #### 10044-2, CBC, 1987-12, 3015- 3, 65847-4, 55066-7, 87892-3 #### [facility] ([id number]) [address], [address] [place], [place] [address]QAD (RBC) [Entitic mass]34.1 jeFvyz72-19UdwWnwywfFaith Community HospitalComment on above:Performed By: #### 75456-9, CBC, 1987-12, 3015-10, 84517- 1, 79038-5, 08813-3 #### [facility] ([id number]) [address], [address] [place], [place] [address]QYGY (RBC) [Mass/Vol]34.6 g/vRGquhji34-66AafDhewutFaith Community HospitalComment on above:Performed By: #### 23557-7, CBC, 1987-12, 3015-10, 86523- 1, 16084-4, 40524-8 #### [facility] ([id number]) [address], [address] [place], [place] [address]CNK (RBC) [Entitic vol]99 rIJacfeu36-167OpyKvahfv [facility]remont HospitalComment on above:Performed By: #### 85988-4, CBC, 1987-12, 3015-3, 82172- 1, 62402-8, 01786-9 #### [facility] ([id number]) [address], [address] [place], [place] [address]Psvddejo mean volume (Bld) [Entitic vol]9.1 fLNormal7-12 ProMSt. John's Hospital CamarilloComment on above:Performed By: #### 28640-0, CBC, 1987-12, 3016-3, 91756-0, 75823-8, 81891-2 #### [facility] ([id number]) [address], [address] [place] [address]Kkupicuhv (Bld) [#/Vol]201 10*3/bVTahftw534-671XdjVrmqng [facility]remont HospitalComment on above:Performed By: #### 88001-1, CBC, 1987-12, 3015-3, 25975-4, 48552-0, 87174-5 #### [facility] ([id number]) [address], [address] [place] [address]JDX COUNT4.36 X10E12/LNormal3.80-5.20[facility] Comment on above:Performed By: #### 93908-0, CBC, 1987-12, 3015-3, 14733-3, 58389-8, 40078-3 #### [facility] ([id number]) [address], [address] [place], [place] [address]SCB (Bld) [#/Vol]13.4 10*3/uLHigh4.0-11.0Kindred Hospital DaytonComment on above:Performed By: #### 85395-0, CBC, 1987-12, 6-3, 92693- 1, 36907-8, 71692-7 #### [facility] ([id number]) [address], [address] [place] [address]HMA [Mass/Vol]on 4C REACTIVE PROTEIN0.3 mg/dLNormal 0.000-0.744PSalem Regional Medical CenterComment on above:Performed By: #### 91821- 8, CBC, 1987-12, 3016-3, 36733-2, 41846-1, 09998-3 #### [facility] ([id number]) [address], [address] [place], [place] [address]TDP Photometric method (Bld) [Velocity]on 60-52-4670ZOZ, ERYTHROCYTE SEDIMENTATION RATE6 mm/hNormal0-30ProFaith Community HospitalComment on above:Performed By: #### 11061-5, CBC, 1987-12, 3015-3, 63595-7, 93307-5, 52507-4 ####[facility] ([id number])[address], [address], [place] [address]Txdbhus Ab IA Ql (S)on 17-50-3030PHH Screen w/reflexNegative NormalNEGProFaith Community HospitalComment on above:Result Comment: Testing performed using multiplex flow immunoassay. Eleven different antigens associated with systemic autoimmune diseases (dsDNA,Sm,Sm/EQUINE DENTIST,EQUINE DENTIST,Chromatin, SSA,SSB,Yolanda-1,Scl70,Ribo P,Centromere B) are included in this screening test.Performed By: #### 38722-6, CBC, 1987-12, 3015-3, 00028-2, 61933-0, 18268-9 ####[facility] ([id number])[address], [address], [place] [address]Turgbnddkb factor Nephelometry Qn (S)on 17-69-2980VOBHRLVHLN KMQZXY96 IU/mLHigh<20ProFaith Community HospitalComment on above:Performed By: #### 31718-3, CBC, 1987-12, 3015- 3, 34170-6, 76747-3, 23330-9 #### [facility] ([id number]) [address], [address] [place], [place] [address]HKA Qnon 04-43-1645MWT7.48 uIU/mLNormal0.49-4.67ProFaith Community HospitalComment on above:Performed By: #### 81686-3, CBC, 1987-12, 3015- 3, 63156-0, 10623-4, 84766-0 ####[facility] ([id number])[address] [facility], [address] [place] [address]YE KNEE LT WO CONTon 49-37-2339UK KNEE LT WO CONTMR KNEE LT WO CONT MR KNEE LT [...] patellar facet and additional cartilage fissuring and irregularityof the medial facet. * Moderate sized suprapatellar effusion with debris and possible small cartilaginous loose body. * Discoid lateral meniscus. No discrete lateral meniscal tear. Approved by Resident Oumar Jacobo DO on 03/31/2024 8:03 AM I, Jean-Pierre Silvestre MD have personally reviewed the image(s) and agree with and/or edited the report Finalized by Jean-Pierre Silvestre MD on 03/31/2024 10:49 AMNormalKindred Hospital DaytonBASIC METABOLIC PANLon 48-78-4783Kbrqk gap [Moles/Vol]10 mmol/LNormal 5-15ProFaith Community HospitalComment on above:Performed By: #### SHIVANI, BMP #### [facility] ([id number]) [address], [address] [place], [place] [address]Kxaobmv [Mass/Vol]10.1 mg/dLNormal8.5-10.5PSalem Regional Medical CenterComment on above:Performed By: #### SHIVANI, BMP #### [facility] ([id number]) [address], [address] [place], [place] [address]Ygdfywdu [Moles/Vol]102 mmol/WButuoy96-527WvyCdtkjoFaith Community HospitalComment on above:Performed By: #### SHIVANI, BMP #### [facility] ([id number]) [address], [address] [place], [place] [address]AJ6 [Moles/Vol]28 mmol/AKhpsin14-90NdxCcjiamSalem Regional Medical Center Comment on above:Performed By: #### SHIVANI, BMP #### [facility] ([id number]) [address], [address] [place], [place] [address]Qaiqviwphg [Mass/Vol]0.83 mg/dLNormal0.40-1.00Kindred Hospital DaytonComment on above:Result Comment: METHOD TRACEABLE TO IDMS STANDARD Performed By: #### SHIVANI, BMP #### [facility] ([id number]) [address], [address] [place], [place] [address]EMA/1.73 sq M.predicted among non-blacks MDRD (S/P/Bld) [Vol rate/Area]84 mL/min/{1.73_m2}Normal>59ProFaith Community HospitalComment on above:Result Comment: Reported eGFR is based on the CKD-EPI 2020 equation that does not use a race coefficient.Performed By: #### LEELA PARRISH #### [facility] ([id number]) [address] [address] [place], [place] [address]Mrxoskt [Mass/Vol]82 mg/bWDyiaaq86-05EpnHbpintKindred Hospital Dayton Comment on above:Performed By: #### SHIVANI, BMP #### [facility] ([id number]) [address] [address] [place], [place] [address]Ihhsgorvd [Moles/Vol]4.1 mmol/LNormal3.5-5.0Kindred Hospital DaytonComment on above:Performed By: #### SHIVANI BMP #### [facility] ([id number]) [address], [address] [place], [place] [address]Pyyjiw [Moles/Vol]140 mmol/XJzcgde314-720UlkBylxzy [facility] HospitalComment on above:Performed By: #### SHIVANI BMP #### [facility] ([id number]) [address] [address]Ibhm nitrogen [Mass/Vol]7 mg/dLNormal5-23ProFaith Community HospitalComment on above:Performed By: #### SHIVANI, BMP #### [facility] ([id number]) [address] [address] [place], [place] [address]FXQ AND AUTO DIFFon 30-08-4084GJEZDCOY BASOPHIL0.2 X10E9/LNormal 0.0-0.2PSalem Regional Medical CenterComment on above:Performed By: #### SHIVANI, BMP #### [facility] ([id number]) [address] [address] [place], [place] [address]Gccvyuwuh/100 WBC (Bld)1.0 %NormalKindred Hospital Dayton Comment on above:Performed By: #### CBCA, BMP #### [facility] ([id number]) [address], [address] [place], [place] [address]Ukmtczzwwnx distribution width (RBC) [Ratio]15.5 %High11.5-15.0 Kindred Hospital DaytonComment on above:Performed By: #### CBCA, BMP #### [facility] ([id number]) [address], [address] [place], [place] [address]Rakonacvft (Bld) [Volume fraction]42.7 %Gayqxr31-71LuuLuyprwFaith Community HospitalComment on above:Performed By: #### CBCA, BMP #### [facility] ([id number]) [address], [address] [place], [place] [address]Stuncmwxgg (Bld) [Mass/Vol]14.5 g/pLXinoyt36.7-15.5PSalem Regional Medical CenterComment on above:Performed By: #### CBCA, BMP #### [facility] ([id number]) [address], [address] [place], [place] [address]Szbopveobyt (Bld) [#/Vol]3.3 10*3/uLNormal1.0-3.5PSalem Regional Medical CenterComment on above:Performed By: #### CBCA, BMP #### [facility] ([id number]) [address], [address] [place], [place] [address]Nkgsjbgowwl/100 WBC (Bld)19.0 %[facility] Comment on above:Performed By: #### CBCA, BMP #### [facility] ([id number]) [address], [address] [place], [place] [address]KBO (RBC) [Entitic mass]33.0 tuMsybpo54-01GgjTrqobxFaith Community HospitalComment on above:Performed By: #### CBCA, BMP #### [facility] ([id number]) [address], [address] [place], [place] [address]XCMC (RBC) [Mass/Vol]34.0 g/yZFkvmsd07-81EhmEzrmpgFaith Community HospitalComment on above:Performed By: #### CBCA, BMP #### [facility] ([id number]) [address], [address] [place], [place] [address]XOK (RBC) [Entitic vol]97 yQCpoyzb06-327RclHtjhlq [facility] HospitalComment on above:Performed By: #### CBCA, BMP #### [facility] ([id number]) [address], [address] [place], [place] [address]Tdgxuznxm (Bld) [#/Vol]0.7 10*3/uLNormal0-0.9Kindred Hospital DaytonComment on above:Performed By: #### CBCA, BMP #### [facility] ([id number]) [address], [address] [place], [place] [address]Avoqwrdsd/100 WBC (Bld)4.0 %NormalProFaith Community Hospital Comment on above:Performed By: #### CBCA, BMP #### [facility] ([id number]) [address], [address] [place], [place] [address]Gzaimdatfbz (Bld) [#/Vol]13.4 10*3/uLHigh1.5-6.6Kindred Hospital DaytonComment on above:Performed By: #### CBCA, BMP #### [facility] ([id number]) [address], [address] [place], [place] [address]Nwrivnoh mean volume (Bld) [Entitic vol]9.1 fLNormal7-12 [facility]red Hospital DaytonComment on above:Performed By: #### CBCA, BMP #### [facility] ([id number]) [address], [address] [place], [place] [address]Wceptwiuy (Bld) [#/Vol]198 10*3/zMLvqrxq006-112YquRiaxcx [facility] HospitalComment on above:Performed By: #### SHIVANI, BMP #### [facility] ([id number]) [address], [address] [place], [place] [address]FQI COUNT4.40 X10E12/LNormal3.80-5.20[facility] Comment on above:Performed By: #### CBCA, BMP #### [facility] ([id number]) [address], [address] [place], [place] [address]MBW morphology finding Nom (Bld)NORMALFreeman Cancer InstitutealProFaith Community HospitalComment on above:Performed By: #### SHIVANI, BMP #### [facility] ([id number]) [address], [address] [place], [place] [address]UMH RZGUGFJSSW52.0 %NormalProFaith Community HospitalComment on above:Performed By: #### CBCQueenie, BMP #### [facility] ([id number]) [address], [address] [place], [place] [address]ICD (Bld) [#/Vol]17.6 10*3/uLHigh4.0-11.0Kindred Hospital DaytonComment on above:Performed By: #### CBCQueenie, BMP #### [facility] ([id number]) [address], [address] [place], [place] [address]LH KNEE LT 3 VWSon 61-22-3017TH KNEE LT 3 VWSXR KNEE LT 3 VWS XR KNEE LT [...] by Tamika Joseph MD on 01/31/2024 6:38 [facility] HospitalMR ELBOW LT WO CONTon 44-60-8770BI ELBOW LT WO CONTMR ELBOW LT WO CONT History: Pain. Lesion [...] by Kaylynn Muir MD on 01/27/2024 11:30 [facility] HospitalCT ABDOMEN AND PELVIS W CONTon 93-36-5475QO ABDOMEN AND PELVIS W CONTCT ABDOMEN AND PELVIS W CONT STUDY: ABDOMEN AND PELVIS CT WITH CONTRAST CLINICAL HISTORY: Hiatal hernia. Diverticulitis. Abdominal pain. Lymphadenopathy COMPARISON: 10/07/2018 TECHNIQUE: CT abdomen and pelvis was performed utilizing 5 mm axial reconstructions following the uneventful administration of 100 cc Omnipaque 300 nonionic intravenous contrast. Coronal and sagittalreformatted images as well as delayed excretory phase [...] by Karlos Herman MD on 01/24/2024 6:29 AMNormalProFaith Community HospitalCREATININEon 47-92-9517Knraepnmcq [Mass/Vol]0.94 mg/dLNormal0.40-1.00 ProMSt. John's Hospital CamarilloComment on above:Result Comment: METHOD TRACEABLE TO BACKUS HOSPITAL STANDARDPerformed By: #### MUSIC PUBLICIST #### [facility] ([id number]) [address] [facility], [address] [place], [place] [address]SUQ/1.73 sq M.predicted among non-blacks MDRD (S/P/Bld) [Vol rate/Area]73 mL/min/{1.73_m2}Normal>59ProFaith Community HospitalComment on above:Result Comment: Reported eGFR is based on the CKD-EPI 2020 equation that does not use a race coefficient.Performed By: #### MUSIC PUBLICIST #### [facility] ([id number]) [address] [facility], [address] [place], [place] [address]XSHTXNQQYHvhhqvf By: Jordan NAVASUseoneil on 01-60-2380Jcocafe [Mass/Vol] 154 mg/mWTimn77 - 99 mg/dLROLLING HILLS [facility]OSPITAL [facility] POC SubsectionPOC Device [id number] 1Invalid Interpretation CodeROLLING HILLS HOSPITAL – ADA POC SubsectionPOC User [id number] 1Invalid Interpretation CodeROLLING HILLS HOSPITAL – [facility] POC SubsectionPOC UsernameGIES, MELINDAInvalid Interpretation CodeROLLING HILLS [facility]OSPITAL [facility] POC SubsectionSurgical PathologyOrdered By: Felicita Carpenter on 93-30-9851OspNneoafSelect Medical OhioHealth Rehabilitation HospitalXR KNEE LT 4V or >on 16-52-1215CU KNEE LT 4V or >EXAM: XR KNEE LT 4V or >, XR [...] Electronically authenticated by: LILIANA NDIAYE Date: 2022-11-29 16:44[facility], MD, Cancer CenterCHEMISTRYOrdered By: Lab ROPUser on 24-46-8106Xarvnoz [Mass/Vol]91 mg/uTQvoeuq62 - 99 mg/dLFTMC POC SubsectionComment on above:Result Comment: Cleaned MeterPOC Device [id number] Interpretation CodeFTMC POC SubsectionPOC User [id number] Interpretation CodeFTMC POC Subsection POC UsernameSHBILLY LÓPEZInvalid Interpretation CodeFTMC POC Subsection CHEMISTRYOrdered By: SYSTEM SYSTEM on 39-03-1640Tgpmu gap [Moles/Vol]13 mmol/L Normal6 - 16 mEq/LFTMC RemisolCalcium [Mass/Vol]9.5 mg/dLNormal8.9 - 11.1 mg/dL [facility] RemisolChloride [Moles/Vol]99 mmol/ESut888 - 111 mmol/LFTMC RemisolCO2 [Moles/Vol]26 mmol/PHbzezu30 - 31 mmol/LFTMC RemisolCreatinine [Mass/Vol]1.1 mg/dLNormal0.5 - 1.3 mg/dLFTMC RemisolGFR/1.73 sq M.predicted among blacks MDRD (S/P/Bld) [Vol rate/Area]mL/min/1.73 q1Ckriow>=59mL/min/1.73 m2FT[facility] Chem S GFR/1.73 sq M.predicted among non-blacks MDRD (S/P/Bld) [Vol rate/Area]52 mL/min/1.73 m2Low>=59mL/min/1.73 m2FT[facility] Chem SGlucose [Mass/Vol]127 mg/dLNormal 55 - 199 mg/dLFTMC RemisolPotassium [Moles/Vol]4.0 mmol/LNormal3.5 - 5.3 mmol/L [facility] RemisolSodium [Moles/Vol]134 mmol/XOcb868 - 145 mmol/LFTMC RemisolUrea nitrogen [Mass/Vol]7 mg/dLNormal5 - 21 mg/dLFTMC RemisolUrea nitrogen/Creatinine [Mass ratio]6 mg/mgLow10 - 20[facility] RemisolHEMATOLOGYOrdered By: Q-Layer SYSTEM on 09-10-0952Jzdiuxuqx/100 WBC (Bld)1.0 %Normal0.0 - 2.0 %[facility] HemeAutoSS Basophils/Leukocytes Auto (Bld) [Pure # fraction]0.1 E9/LNormal0.0 - 0.2 E9/L [facility] HemeAutoSSEosinophils/100 WBC (Bld)0.4 %Normal0.0 - 8.0 %[facility] HemeAutoSS Eosinophils/Leukocytes Auto (Bld) [Pure # fraction]0.0 E9/LNormal0.0 - 0.5 E9/L [facility] HemeAutoSSLymphocytes/100 WBC (Bld)32.6 %Jlxjim15.0 - 50.0 %[facility] HemeAutoSS Lymphocytes/Leukocytes Auto (Bld) [Pure # fraction]3.9 E9/LNormal1.0 - 4.0 E9/L [facility] HemeAutoSSMonocytes/100 WBC (Bld)4.8 %Normal4.0 - 14.0 %[facility] HemeAutoSS Monocytes/Leukocytes Auto (Bld) [Pure # fraction]0.6 E9/LNormal0.2 - 1.0 E9/L [facility] HemeAutoSSNeutrophils/100 WBC (Bld)61.2 %Eewrdw25.0 - 75.0 %[facility] HemeAutoSS Neutrophils/Leukocytes Auto (Bld) [Pure # fraction]7.4 E9/LNormal2.0 - 7.5 E9/L [facility] HemeAutoSSHEMATOLOGYOrdered By: Shahnaz Diamond on 93-19-5344Uklqhtvonre distribution width (RBC) [Ratio]18.9 %High10.9 - 14.2 %[facility] HemeAutoSSHematocrit (Bld) [Volume fraction]39.9 %Iygbgs45.0 - 46.0 %[facility] HemeAutoSSHemoglobin (Bld) [Mass/Vol]12.8 g/lACvimhh16.0 - 16.0 gm/dLFTMC HemeAutoSSMCH (RBC) [Entitic mass]27.6 wmXddluk91.0 - 34.0 pgFHILLCREST H[facility] [place] HemeAutoSSMCHC (RBC) [Mass/Vol]32.1 g/dL Wcjapq08.4 - 36.0 gm/dLROLLING HILLS HOS[facility] HemeAutoSSMCV (RBC) [Entitic vol]86.0 oUYnyzln38.0 - 100.0 fLROLLING HILLS HOSPITAL – [facility] HemeAutoSSPlatelet mean volume (Bld) [Entitic vol]7.9 fLNormal6.4 - 10.8 fLROLLING HILLS HOSPITAL – [facility] HemeAutoSSPlatelets (Bld) [#/Vol]249.0 E9/XWxuhpl896.0 - 500.0 E9/L [facility] HemeAutoSSRBC (Bld) [#/Vol]4.6 E12/LNormal4.3 - 5.9 E12/LFC HemeAutoSSWBC corrected for nucl RBC Auto (Bld) [#/Vol]12.1 E9/LHigh4.0 - 11.0 E9/LFC HemeAutoSSURINALYSISOrdered By: Kalros Henderson on 84-17-3649Istdegbl LM Ql (Urine sed)1+ /HPFInvalid Interpretation CodeTrace/HPFROLLING HILLS HOSPITAL [facility] UA Auto SSBilirubin Ql (U)Negative (10/20/22 11:40 AM)NormalNegativeROLLING HILLS HOSPITAL – [facility] UA Auto SSClarity (U)Clear (10/20/22 11:40 AM)NormalClearFHILLCREST HOSPITAL CL[facility]EM[facility] [place] UA Auto SSColor (U)Yellow (10/20/22 11:40 AM)NormalYellowROLLING HILLS HOSPITAL – [facility] UA Auto SSEpithelial cells.squamous LM.HPF (Urine sed) [#/Area]/[HPF]Normal0-2/HPFROLLING HILLS HOSPITAL [facility] UA Auto SSGlucose Test strip (U) [Mass/Vol]Negative (10/20/22 11:40 AM)NormalNegativeROLLING HILLS HOSPITAL [facility] UA Auto SSHemoglobin Ql (U)Negative (10/20/22 11:40 AM)NormalNegativeROLLING HILLS [facility]OSP[facility] UA Auto SSKetones (U) [Mass/Vol]Negative (10/20/22 11:40 AM)NormalNegativeROLLING HILLS HOSPITAL [facility] UA Auto SSLithium.plasma/Edon.RBC (Bld) [Mass ratio]0-3 /HPFNormal0-3/HPFROLLING HILLS HOSP[facility] UA Auto SSNitrite Ql (U)Negative (10/20/22 11:40 AM)NormalNegativeROLLING HILLS [facility]OSP[facility] UA Auto SSpH (U)6.0 *NA* (10/20/22 11:40 AM)Invalid Interpretation Code5.0 - 9.0RO[facility] UA Auto SSProtein (U) [Mass/Vol]Negative (10/20/22 11:40 AM)NormalNegativeROLLING HILLS HOSPITAL [facility] UA Auto SSSpecific gravity (U) [Rel density] <=1.005 *NA* (10/20/22 11:40 AM)Invalid Interpretation Code1.005 - 1.030[facility] UA Auto SSUA Spec DescClean Catch (10/20/22 11:40 AM)NormalROLLING HILLS HOSPITAL – [facility] UA Auto SSUrobilinogen Qn (U)0.1136226 {Gareth'U}/dLNormal0.0 - 1.0 EU/dLROLLING HILLS HOSPITAL [facility] UA Auto SSWBC Auto Ql (U)1+ *ABN* (10/20/22 11:40 AM)Invalid Interpretation CodeNegativeROLLING HILLS HOSPITAL – [facility] UA Auto SSWBC LM.HPF (Urine sed) [#/Area]0-5 /HPFNormal0-5/HPFROLLING HILLS HOSPITAL [facility] UA Auto SSMG MAMM DIAGNOSTIC 3D SIXTO CADon 57-97-9202CM MAMM DIAGNOSTIC 3D SIXTO CADPatient: ROCK HERRERA Exam Date: 09/10/2022 : 1970 Gender:F Ordering : DR DAVID VILLALOBOS . Admission #: [id number] Family : Order #: [id number] CLICK HERE TO VIEW EXAM RADIOLOGY REPORT PROCEDURE: MAMMOGRAM DIAGNOSTIC 3D BILATERAL CAD, 09/10/2022, 12:38 ULTRASOUND BREAST LEFT LIMITED, 09/10/2022, 13:21 COMPARISON: MG MAMM SCREEN 3D SIXTO CAD, 10/23/2021. INDICATIONS: Lump in lower outer quadrant of left breast Calculator Name NCI Breast Cancer Risk Assessment Tool 5 Year Breast Cancer Risk 1.10% Lifetime Breast Cancer Risk 9.30% Personal Breast Cancer No Personal Ovarian Cancer No Treatments None Family Cancers Mother with ovarian cancer at age 60. LOCATION: [facility] BREAST COMPOSITION: Heterogeneously dense,which may obscure small [...] by: Delores Roach M.D. on 09/10/2022 at 13:54[facility] CenterUS BREAST LEFT LIMITEDon [id number] BREAST LEFT LIMITEDPatient: ROCK HERRERA Exam Date: 09/10/2022 : 1970 Gender:F Ordering : DR DAVID VILLALOBOS . Admission #: [id number] Family : Order #: [id number] CLICK HERE TO VIEW EXAM RADIOLOGY REPORT PROCEDURE: MAMMOGRAM DIAGNOSTIC 3D BILATERAL CAD, 09/10/2022, 12:38 ULTRASOUND BREAST LEFT LIMITED, 09/10/2022, 13:21 COMPARISON: MG MAMM SCREEN 3D SIXTO CAD, 10/23/2021. INDICATIONS: Lump in lower outer quadrant of left breast Calculator Name NCI Breast Cancer Risk Assessment Tool 5 Year Breast Cancer Risk 1.10% Lifetime Breast Cancer Risk 9.30% Personal Breast Cancer No Personal Ovarian Cancer No Treatments None Family Cancers Mother with ovarian cancer at age 60. LOCATION: [facility] BREAST COMPOSITION: Heterogeneously dense,which may obscure small [...] by: Delores Roach M.D. on 09/10/2022 at 13:54[facility] Cancer CenterXR DEXA BONE DENSITYon [id number] DEXA BONE DENSITYEXAMINATION: XR DEXA BONE DENSITY, 08/06/2022 1:26 PM [...] Electronically authenticated by: DELORES ROACH Date: 2022-08-06 14:[address] [place], [place] [id number] CHEST 2 Von [id number] CHEST 2 VEXAM: XR CHEST 2 V HISTORY: Chronic dyspnea [...] Electronically authenticated by: NICOLE ROJAS Date: 2022-07-04 14:[address] [place], [place] [id number] KNEE RT 4V or >on [id number] KNEE RT 4V or >EXAM: XR KNEE RT 4V or > HISTORY: [...] Electronically authenticated by: NICOLE ROJAS Date: 2022-07-03 18:12[facility] AUTO DIFFon [id number] #0.1 103/ulNormal0.0-0.1[facility] SystemComment on above:Performed By: #### CBC ####[facility] [address] [place] [address]Dr.Soo ChangBasophils/100 WBC (Bld)0.7 %Normal0.2-2.0[facility] SystemComment on above:Performed By: #### CBC ####[facility] [address] [place], [place] [address]Dr.Ilenelan ChangEO #0.1 103/ulNormal0.0-0.7The [facility] SystemComment on above:Performed By: #### CBC ####[facility] [address] [place], [place] [address]Dr.Soo ChangEosinophils/100 WBC (Bld)0.4 %Critically low0.9-7.0[facility] SystemComment on above:Performed By: #### CBC ####[facility] [address] [address]Dr. Soo ChangErythrocyte distribution width (RBC) [Ratio]15.1 %Critically high 11.0-15.0[facility] SystemComment on above:Performed By: #### CBC ####[facility] [address] [place], [place] [address]Dr. Soo ChangHematocrit (Bld) [Volume fraction]43.4 %Fzsaww17.0-48.0[facility]agra[facility] HospitalComment on above:Performed By: #### CBC ####[facility] [address] [place], [place] [address]Dr.Soo TaylorHemoglobin (Bld) [Mass/Vol]14.4 g/bZVhehan78.0-16.0The Seagraves HospitalComment on above: Performed By: #### CBC ####[facility] Zoarcrxfcr[address] [place], [place] [address]Dr.Soo TaylorIG #0.06 10e3/ulCritically high0.00-0.03 The [facility] SystemComment on above:Performed By: #### CBC ####[facility] Cxhadvauns[address] [place], [place] [address]Dr.Soo TaylorIG % 0.4 %Normal0.0-0.5The [facility] SystemComment on above:Performed By: #### CBC ####[facility] Fvcbjmmcrl[address] [place], [place] [address]Dr. Soo TaylorLYMPH #5.4 103/ulCritically high1.2-3.8The [facility] SystemComment on above:Performed By: #### CBC ####[facility] Ljzwsjxegl[address] [place], [place] [address]Dr.Soo TaylorLymphocytes/100 WBC (Bld)36.6 %Normal 20.5-60.0The [facility] SystemComment on above:Performed By: #### CBC ####[facility] Tqfizyroqy[address] [place], [place] [address]Dr. Soo TaylorMANUAL DIFF REQNONormalThe [facility] SystemComment on above: Performed By: #### CBC ####[facility] Qvmwdbmfvc[address] [place], [place] [address]Dr.Soo TaylorE[facility] (RBC) [Entitic mass]29.4 pgNormal 26.7-34.0The Seagraves HospitalComment on above:Performed By: #### CBC ####[facility] Jyocwceqws[address] [place], [place] [address]Dr. Soo TaylorMCHC (RBC) [Mass/Vol]33.2 g/qKPvqvqv56.9-35.2The [facility] Comment on above:Performed By: #### CBC ####[facility] [address] [place] [address]Dr.Soo TaylorMCV (RBC) [Entitic vol]88.6 fL Xwgwxv26.0-99.0The [facility] SystemComment on above:Performed By: #### CBC ####[facility] R[address]xrnejt[address] [place] [address]Dr. Soo TaylorMONO #0.9 103/ulCritically high0.3-0.8The [facility] SystemComment on above:Performed By: #### CBC ####[facility] Vbyioophsx[address] [place], [place] [address]Dr.Soo TaylorMonocytes/100 WBC (Bld)6.4 %Normal 1.7-12.0The [facility] SystemComment on above:Performed By: #### CBC ####[facility] Zvjdytlucy[address] [place], [place] [address]Dr. Soo TaylorNEUT #8.1 103/ulCritically high1.4-6.5The [facility] SystemComment on above:Performed By: #### CBC ####[facility] Kmjaoenxzn[address] [place], [place] [address]Dr.Soo TaylorNeutrophils/100 WBC (Bld)55.5 %Normal 43.0-75.0The [facility] SystemComment on above:Performed By: #### CBC ####[facility] Geaqfmwoze[address] [place], [place] [address]Dr. Soo TaylorPlatelet mean volume (Bld) [Entitic vol]9.9 fLNormal9.5-13.5The [facility] SystemComment on above:Performed By: #### CBC ####[facility] Sdbdgswqfe[address] [place], [place] [address]Dr.Soo XfymuVEG301 103/ul Dzycfr744-223Hcg [facility] SystemComment on above:Performed By: #### CBC ####[facility] [address] [place] [address]Dr. Yilan ChangRBC4.90 106/ulNormal4.20-5.40The [facility] SystemComment on above: Performed By: #### CBC ####[facility] Ggmweixdaa[address] [place], [place] [address]Dr.Yilan GlcemJEH16.6 103/ulCritically high4.0-11.0The [facility]agraves HospitalComment on above:Performed By: #### CBC ####[facility] Agxnjnxniv[address] [place], [place] [address]Dr.Yilan ChangPROF CHEM 8 (BAS METB)on 03-03-5572Qtshj gap [Moles/Vol]12.9 mmol/LNormalThe [facility] SystemComment on above:Performed By: #### BMP ####[facility] Hzmzpnqasg85[address] [place], [place] [address]Dr.Yilan ChangCalcium [Mass/Vol]9.5 mg/dLNormal8.5-10.1The [facility] SystemComment on above:Performed By: #### BMP ####[facility] Tdunwhxtea[address] [place], [place] [address]Dr.Yilan ChangChloride [Moles/Vol]101 mmol/SHltvua91-506Cwo [facility] SystemComment on above:Performed By: #### BMP ####[facility] Xjvtarlqjn[address] [place], [place] [address]Dr.Yilan ChangCO2 [Moles/Vol] 26.6 mmol/FIjpwiv49.0-32.0The [facility] SystemComment on above:Performed By: #### BMP ####[facility] Nnicknlnjc[address] [place], [place] [address]Dr.Yilan ChangCreatinine [Mass/Vol]1.11 mg/dLCritically high0.55-1.02The [facility] SystemComment on above:Performed By: #### BMP ####[facility] Robqwzoywa7[address] [place], [place] [address]Dr.Yilan ChangEGFR-AF MALAYSIAN>60Normal>=60The [facility] HospitalComment on above:Performed By: #### BMP ####[facility] [address]bl[address] [place] [address]Dr. Ilenelan ChangEGFR-NON AF RQZVOMGB36 mL/min/1.40x3Ktrzwzhtoq low>=60The [facility] SystemComment on above:Performed By: #### BMP ####[facility] [address] [place] [address]Dr.Soo ChangGlucose [Mass/Vol]145 mg/dLCritically iylc64-375Lkd [facility] SystemComment on above: Performed By: #### BMP ####[facility] [address]eu[address] [place] [address]Dr.Soo ChangPotassium [Moles/Vol]3.5 mmol/LNormal 3.5-5.1The [facility] SystemComment on above:Performed By: #### BMP ####[facility] [address]owjdsatom[address] [place] [address]Dr.Soo Taylor Sodium [Moles/Vol]137 mmol/AXohmje350-042Wbh [facility] SystemComment on above: Performed By: #### BMP ####[facility] [address]zyfvu[address] [place] [address]Dr.Soo ChangUrea nitrogen [Mass/Vol]2.0 mg/dL Critically low7.0-18.0The [facility] SystemComment on above:Performed By: #### BMP ####[facility] Qtvnnaavnj[address] [place] [address]Dr. Ilenelan ChangUrea nitrogen/Creatinine [Mass ratio]1.8 mg/mgNormalThe [facility] SystemComment on above:Performed By: #### BMP ####[facility] Upnzfedpnp[address] [place], [place] [address]Dr.Soo TaylorTRLUKENIN, HIGH SENSITIVITYon 79-25-4699QMQXFE2.1 pg/mLNormal4.0-51.3The [facility] Comment on above:Result Comment: CUT-OFF POINTS HAVE BEEN ESTABLISHED BASED ON THE FOURTH UNIVERSAL DEFINITIONS OF MYOCARDIAL INFARCTION. THE UPPER REFERENCE LIMIT (URL) OF TROPONIN, DEFINED THE 99TH PERCENTILE OF cTnI DISTRIBUTION IN A REFERENCE POPULATION, HAS BEEN CONFIRMED THE DECISION THRESHOLD FOR DC DIAGNOSIS.Performed By: #### HSTROPN ####[facility] [address] [place], [place] [address]Zi. Soo PenaTROP4.6 pg/mLNormal4.0-51.3 The [facility] SystemComment on above:Result Comment: CUT-OFF POINTS HAVE BEEN ESTABLISHED BASED ON THE FOURTH UNIVERSAL DEFINITIONS OF MYOCARDIAL INFARCTION. THE UPPER REFERENCE LIMIT (URL) OF TROPONIN, DEFINED THE 99TH PERCENTILE OF cTnI DISTRIBUTION IN A REFERENCE POPULATION, HAS BEEN CONFIRMED THE DECISION THRESHOLD FOR DC DIAGNOSIS.Performed By: #### HSTROPN ####[facility] [address] [place], [place] [address]Gt. Soo BrandonMRI LSPINE WO CONon 90-30-3094TGS LSPINE WO CONEXAMINATION: MRI LSPINE WO CON HISTORY: Lumbar radiculopathy , chronic [...] Electronically authenticated by: MAMIE COOMBS Date: 2022-04-06 18:18[facility] KNEE RT WO CONon 06-79-2085GFN KNEE RT WO CONEXAMINATION: MRI KNEE RT WO CON HISTORY: Sprain of right [...] Electronically authenticated by: MAMIE COOMBS Date: 2022-03-28 11:40[facility] SHOULDER RT WO CONon 38-37-1460VWC SHOULDER RT WO CON EXAMINATION: MRI SHOULDER [...] Electronically authenticated by: MAMIE COOMBS Date: 2022-03-28 09:09[facility] URINE PROFILEon 94-31-0007Asmoedfmb Ql (U)NegativeNormal NEGATIVEDunlap Memorial HospitalComment on above:Performed By: #### ERUR #### [facility] [address] [place] [address] Dr. Soo Nixon (U)CLEARNormalCLEARDunlap Memorial HospitalComment on above: Performed By: #### ERUR #### [facility] [address] [place] [address] Dr. Soo Stevens (U)LT. YELLOWNormalYELLOWDunlap Memorial HospitalComment on above:Performed By: #### ERUR #### [facility] [address] [place] [address] [address] Soo Sierra micrscopic examination will be performed if indicated. NormalThe [facility] SystemComment on above:Performed By: #### ERUR #### [facility] [address] [place] [address] Dr. Soo Aguayoose Ql (U)NegativeNormalNEGATIVEDunlap Memorial HospitalComment on above:Performed By: #### ERUR #### [facility] [address] [place] [address] Dr. Soo TaylorHemoglobin Ql (U)NegativeNormalNEGATIVEDunlap Memorial Hospital Comment on above:Performed By: #### ERUR #### [facility] [address] [place] [address] Dr. Soo Montanoones Ql (U)NegativeNormalNEGATIVEDunlap Memorial HospitalComment on above:Performed By: #### ERUR #### [facility] [address] [place] [address] Dr. Soo TaylorLEUKOCYTESNegativeNormalNEGATIVEDunlap Memorial HospitalComment on above:Performed By: #### ERUR #### [facility] [address] [place] [address] Dr. Soo TaylorNitrite Ql (U)NegativeNormalNEGATIVEDunlap Memorial HospitalComment on above:Performed By: #### ERUR #### [facility] [address] [place] [address] Dr. Soo TaylorpH (U)5.5 [pH]Normal5-9Dunlap Memorial HospitalComment on above: Performed By: #### ERUR #### [facility] [address] [place] [address] Dr. Soo TaylorSPEC GRAVITY<=1.274Snnxjuyn7.005-<=1.025[facility] Comment on above:Performed By: #### ERUR #### [facility] [address] [place] [address] Dr. Soo Finney PROTEINNegativeNormalNEGATIVE/ TRACEDunlap Memorial Hospital Comment on above:Performed By: #### ERUR #### [facility] [address] [place] [address] Dr. Soo Garcias MICRO INDNOT INDICATEDNoalThCorey HospitalComment on above:Performed By: #### ERUR #### [facility] [address] [place] [address] Dr. Soo Branchbilinogen Qn (U)0.2 {Gareth'U}/dLNormal0.2 - 1.0Dunlap Memorial HospitalComment on above:Performed By: #### ERUR #### [facility] [address] [place], [place] [address] Dr. Soo TaylorCOMPREHENSIVE METABOLIC PANELon 78-10-3963Ktmicgp [Mass/Vol]4.2 g/dLNormal3.6-5.1Quest DiagnosticsComment on above:Performed By: #### 7600, 70448, 496 #### [facility] of [place] [address] [place]: Arjun Ramos MDAlbumin/Globulin [Mass ratio]1.8 {ratio}Normal 1.0-2.5Quest DiagnosticsComment on above:Performed By: #### 7600, 96100, 496 #### [facility] [place] [address] [place]: Arjun Ramos MDALP [Catalytic activity/Vol]143 U/LNormal 37-153Quest DiagnosticsComment on above:Performed By: #### 7600, 07745, 496 #### [facility] of [place] [address] [place]: Arjun Ramos MDALT [Catalytic activity/Vol]18 U/LNormal6-29 Quest DiagnosticsComment on above:Performed By: #### 7600, 89510, 496 #### [facility] of [place] [address] [place]: Arjun Ramos MDAST [Catalytic activity/Vol]14 U/VSsdfem52-90 Quest DiagnosticsComment on above:Performed By: #### 7600, 03894, 496 #### [facility] of [place] [address] [place]: Arjun Ramos MDBilirubin [Mass/Vol]0.5 mg/dLNormal0.2-1.2 Quest DiagnosticsComment on above:Performed By: #### 7600, 60449, 496 #### [facility] of [address], [address] [place] [address] [place]: Arjun Ramos MDCalcium [Mass/Vol]10.0 mg/dLNormal8.6-10.4 Quest DiagnosticsComment on above:Performed By: #### 7600, 55908, 496 #### [facility] [address], [address] [place] [address] [place]: Arjun Ramos MDChloride [Moles/Vol]100 mmol/NHgffhk02-020 Quest DiagnosticsComment on above:Performed By: #### 7600, 77625, 496 #### [facility] [address], [address] [place] [address] [place] Rough: Arjun Ramos MDCO2 [Moles/Vol]29 mmol/ZOyvwan97-25Dkmuv DiagnosticsComment on above:Performed By: #### 7600, 95926, 496 #### [facility] [address], [address] [place] [address] [place] Rough: Arjun NUÑEZreatinine [Mass/Vol]0.86 mg/dLNormal0.50-1.05 Quest DiagnosticsComment on above:Result Comment: For patients >49 years of age, the reference limit for Creatinine is approximately 13% higher for people identified as -Egyptian.Performed By: #### 7600, 37310, 496 #### [facility] [address], [address] [place] [address] [place] Rough: Arjun Ramos MDeGFR NON-AFR. KPKVJPCI05 mL/min/1.66d7Oakkch> OR = 60Quest DiagnosticsComment on above:Performed By: #### 7600, 05444, 496 #### [facility] [place] [address] [place] Rough: Arjun Ramos MDGFR/1.73 sq M.predicted among blacks MDRD (S/P/Bld) [Vol rate/Area]91 mL/min/{1.73_m2}Normal> OR = 60[facility] Comment on above:Performed By: #### 7600, 73239, 496 #### [facility] [place] [address] [place] [address]: Arjun Ramos MDGlobulin (S) [Mass/Vol]2.4 g/dLNormal1.9-3.7 Quest DiagnosticsComment on above:Performed By: #### 7600, 55066, 496 #### [facility] [place] [address] [place]: Arjun Ramos MDGlucose [Mass/Vol]125 mg/zKThsxsh60-895Tvmcn DiagnosticsComment on above:Result Comment: Non-fasting reference interval For someone without known diabetes, a glucose value between 100 and 125 mg/dL is consistent with prediabetes and should be confirmed with a follow-up test.Performed By: #### 7600, 90921, 496 #### [facility] [place] [address] [place] [address]: Arjun Ramos MDPotassium [Moles/Vol]3.6 mmol/LNormal3.5-5.3 Quest DiagnosticsComment on above:Performed By: #### 7600, 36662, 496 #### [facility] [place] [address] [place] Rough: Arjun Ramos MDProtein [Mass/Vol]6.6 g/dLNormal6.1-8.1Quest DiagnosticsComment on above:Performed By: #### 7600, 60486, 496 #### [facility] [place] [address] [place] Rough: Arjun Ramos MDSodium [Moles/Vol]139 mmol/PFvfhcb317-452Vhbwa DiagnosticsComment on above:Performed By: #### 7600, 44424, 496 #### [facility] [place] [address] [place] Rough: Arjun Ramos MDUrea nitrogen [Mass/Vol]4 mg/dLLow7-25Quest DiagnosticsComment on above:Performed By: #### 7600, 61376, 496 #### [facility] [address], [address] [place] [address] [place] Rough: Arjun Ramos MDUrea nitrogen/Creatinine [Mass ratio]5 mg/mg Low6-22Quest DiagnosticsComment on above:Performed By: #### 7600, 41130, 496 #### [facility] [address], [address] [place] [address] [place]: Arjun Ramos MDHEMOGLOBIN A1con 16-37-1088DIHLUQLPEL A1c5.4 % of total HgbNormal<5.7Quest DiagnosticsComment on above:Result Comment: For the purpose of screening for the presence of diabetes: <5.7% Consistent with the absence of diabetes 5.7-6.4% Consistent with increased risk for diabetes (prediabetes) > or =6.5% Consistent with diabetes This assay result is consistent with a decreased risk of diabetes. Currently, no consensus exists regarding use of hemoglobin A1c for diagnosis of diabetes in children. According to [place] Diabetes Association (ADA) guidelines, hemoglobin A1c <7.0% represents optimal control in non- diabetic patients. Different metrics may apply to specific patient populations. Standards of Medical Care in Diabetes(ADA).Performed By: #### 7600, 89515, 496 #### [facility] [address], [address] [place] [address] [place]: Arjun Ramos MDLIPID PANEL, STANDARDon 18-15-3899Jiepkjngjff [Mass/Vol]187 mg/dLNormal<200Quest DiagnosticsComment on above:Order Comment: FASTING:NO FASTING: NOPerformed By: #### 7600, 96592, 496 #### [facility] [address], [address] [place] [address] [place]: Arjun Ramos MDCholesterol in HDL [Mass/Vol]43 mg/dLLow> OR = 50Quest DiagnosticsComment on above:Order Comment: FASTING:NO FASTING: NOPerformed By: #### 7600, 54362, 496 #### [facility] [address], [address] [place] [address] [place]: Arjun NUÑEZholesterolima.total/Cholesterol in HDL [Mass ratio]4.3 {ratio}Normal<5.0Quest DiagnosticsComment on above:Order Comment: FASTING:NO FASTING: NOPerformed By: #### 7600, 36395, 496 #### [facility] [address], [address] [place] [address] [place]: Arjun Ramos MDLDL-CHOLESTEROLNormalQuest DiagnosticsComment on above:Order Comment: FASTING:NO FASTING: NOResult Comment: LDL cholesterol not calculated. Triglyceride levels [...] LDL-C. Lan SS et al. KELLY. 2013;310(19): 9851-5680 (http://education.[employer].[facility]/faq/YUH348)Performed By: #### 7600, 02204, 496 #### [facility] [address], [address] [place] [address] [place]: Arjun GONZALES HDL GCHICTVHGHX534 mg/dL (calc)High<130 Quest DiagnosticsComment on above:Order Comment: FASTING:NO FASTING: NOResult Comment: For patients with diabetes plus 1 major ASCVD risk factor, treating to a non-HDL-C goal of <100 mg/dL (LDL-C of <70 mg/dL) is considered a therapeutic option.Performed By: #### 7600, 03422, 496 #### [facility] [address], [address] [place] [address] [place]: Arjun Merati MDTriglyceride [Mass/Vol]425 mg/dLHigh<150Quest DiagnosticsComment on above:Order Comment: FASTING:NO FASTING: NOResult Comment: If a non-fasting specimen was collected, consider repeat triglyceride testing on a fasting specimen if clinically indicated. Heber et al. J. of Clin. Lipidol. 2015;9:129-169.Performed By: #### 7600, 64708, 496 #### [facility] [address], [address] [place] [address] [place]: Arjun Ramos MDHEMOGLOBIN A1con 96-41-2169KZPECVNPGR A1c7.1 % of total HgbHigh<5.7Quest DiagnosticsComment on above:Result Comment: For someone without known diabetes, a [...] hemoglobin A1c for diagnosis of diabetes for children.Performed By: #### 7600, 496 #### [facility] [address], [address] [place] [address] [place] Rough: Arjun Ramos MDLIPID PANEL, STANDARDon 60-70-0832Lxlxqxatyws [Mass/Vol]184 mg/dLNormal<200Quest DiagnosticsComment on above:Order Comment: FASTING:YES FASTING: YESPerformed By: #### 7600, 496 #### [facility] [address], [address] [place] [address] [place] Rough: Arjun NUÑEZholesterol in HDL [Mass/Vol]32 mg/dLLow> OR = 50Quest DiagnosticsComment on above:Order Comment: FASTING:YES FASTING: YESPerformed By: #### 7600, 496 #### [facility] [address], [address] [place] [address] [place]: Arjun Merati MDCholesterol.total/Cholesterol in HDL [Mass ratio]5.8 {ratio}High<5.0Quest DiagnosticsComment on above:Order Comment: FASTING:YES FASTING: YESPerformed By: #### 7600, 496 #### [facility] [address], [address] [place], [place] [address] [place] Rough: Arjun Ramos MDLDL-CHOLESTEROLNormalQuest DiagnosticsComment on above:Order Comment: FASTING:YES FASTING: YESResult Comment: LDL cholesterol not calculated. Triglyceride levels [...] LDL-C. Lan SS et al. KELLY. 2013;310(19): 1754-3243 (http://education.[employer]/faq/HIJ517)Performed By: #### 7600, 496 #### [facility] [address], [address] [place], [place] [address] [place] Rough: Arjun GONZALES HDL EHLDKHFCQNH229 mg/dL (calc)High<130 Quest DiagnosticsComment on above:Order Comment: FASTING:YES FASTING: YESResult Comment: For patients with diabetes plus 1 major ASCVD risk factor, treating to a non-HDL-C goal of <100 mg/dL (LDL-C of <70 mg/dL) is considered a therapeutic option.Performed By: #### 7600, 496 #### [facility] [address], [address] [place], [place] [address] [place] Rough: Arjun Ramos MDTriglyceride [Mass/Vol]531 mg/dLHigh<150Quest DiagnosticsComment on above:Order Comment: FASTING:YES FASTING: YESResult Comment: If a non-fasting specimen was collected, consider repeat triglyceride testing on a fasting specimen if clinically indicated. Heber et al. J. of Clin. Lipidol. 2015;9:129-169. There is increased risk of pancreatitis when the triglyceride concentration is very high (> or = 500 mg/dL, especially if > or = 1000 mg/dL). Heber et al. J. of Clin. Lipidol. 2015;9:129-169.Performed By: #### 7600, 496 #### [facility] [address] [place] [address], [address] [place] [address] [place] Rough: Arjun Ramos [facility] 44-11-2705TDEVUtnera Visit (OTOLCC) ROCK HERRERA ([id number]) 1970 F Date Time Provider Department 06/27/21 2:00 PM CRYSTAL RODRIGUEZ [facility] During your visit today, we recorded the following information about you: Temperature Pulse 97.3 degrees 82/minute Crystal Rodriguez PA-C 06/27/2021 4:56 PM Signed [facility] [place] [facility] NOTE CC: Rock Herrera is a [...] COPD (chronic obstructive pulmonary disease) ([facility]) - Depression - Ana Laura-Danlos [...] (IMODIUM) 2 mg ta (more content not included)...[facility] 61-50-5982LIVSLuixqo Visit (TESSA) ROCK HERRERA ([id number]) 1970 F Date Time Provider Department 04/19/21 [...] Comments: hallucinate METHADONE 02/28/2015 11 - Vomiting MOXIFLOXACIN-SOD.CHLORIDE(ISO) 02/28/2015 16 - Unknown PENICILLINS 02/28/2015 11 - Vomiting TOPAMAX (TOPIRAMATE) 02/28/2015 16 - Unknown TORADOL (KETOROLAC) 02/28/2015 14 - Other: See Comments Comments: Abdominal pain VERAPAMIL 02/28/2015 11 - Vomiting Date Reviewed: 04/19/2021 Reviewed by: Randi Farrell DO - Fully Assessed Reason for Visit: New [869216] Fracture [4131] Primary Visit Diagnosis:Other closed nondisplaced fracture of proximal end of left humerus, initial encounter [S42.295A] Other Visit Diagnosis:Right elbow pain [M25.521] Order(s):XR ELBOW SPECIAL VIEWS AP/LAT/OTHER RT [[id number]] Order #: [id number] FUTURE CONSULT TO TELECOM SALES CONSULTANT [[id number]] Order #: [id number]: 1 FUTURE Prescriptions as of 04/19/2021 - [...] 02/28/2015 History of att (more content not included)...NormalKettering Health Behavioral Medical CenterXR ELBOW 3V AP/LAT/OTHER RTon 21-83-3568GR ELBOW 3V AP/LAT/OTHER RT* * *Final Report* * * DATE OF [...] NO ACUTE OSSEOUS ABNORMALITY OTHER FINDINGS DESCRIBED Lining Maker: DIONNE Transcribe Date/Time: Apr 19 2021 2:38P Dictated by : CAROL ROCHE MD This examination was interpreted and the report reviewed and electronically signed by: CAROL ROCHE MD on Apr 19 2021 2:39PM EST [id number] Health Behavioral Medical CenterXR Elbow - right AP and Lateral and obliqueon 48-78-4387OZSBBCEJYD: NO ACUTE OSSEOUS ABNORMALITY OTHER FINDINGS DESCRIBED Lining Maker: DIONNE Transcribe Date/Time: Apr 19 2021 2:38P Dictated by : CAROL ROCHE MD This examination was interpreted and the report reviewed and electronically signed by: CAROL ROCHE MD on Apr 19 2021 2:39PM [facility] DIVISION OF RADIOLOGY* * *Final Report* * * DATE OF [...] normal. No other significant abnormality. [facility] [place] [facility]19/[facility]21 * * *Final Report* * [...] NO ACUTE OSSEOUS ABNORMALITY OTHER FINDINGS DESCRIBED Lining Maker: DIONNE Transcribe Date/Time: Apr 19 2021 2:38P Dictated by : CAROL ROCHE MD This examination was interpreted and the report reviewed and electronically signed by: CAROL ROCHE MD on Apr 19 2021 2:39PM EST [facility]Rad[facility] observation (narrative)[facility] HospitalXR Elbow - right AP and Lateral and obliqueOrdered By: Ccf Provider on 04-19-2021 [facility] HospitalXR SHLDR >/=3V AP/IGNACIA AP/OTHR RTon 17-79-6878DO SHLDR >/=3V AP/IGNACIA AP/OTHR RT* * *Final Report* * * DATE OF [...] No other significant abnormality. IMPRESSION: HEALING FRACTURE Lining Maker: DIONNE Transcribe Date/Time: Apr 19 2021 2:02P Dictated by : CAROL ROCHE MD This examination was interpreted and the report reviewed and electronically signed by: CAROL ROCHE MD on Apr 19 2021 2:02PM EST [id number] Health Behavioral Medical CenterXR Shoulder - right 3 Viewson [id number]: HEALING FRACTURE Lining Maker: DIONNE Transcribe Date/Time: Apr 19 2021 2:02P Dictated by : CAROL ROCHE MD This examination was interpreted and the report reviewed and electronically signed by: CAROL ROCHE MD on Apr 19 2021 2:02PM EST DIVISION OF RADIOLOGY* * *Final Report* * * DATE OF [...] Osteopenia. No other significant abnormality. [facility] [place] - 04/19/2021 * * *Final Report* * [...] other significant abnormality. IMPRESSION IMPRESSION: HEALING FRACTURE Lining Maker: DIONNE Transcribe Date/Time: Apr 19 2021 2:02P Dictated by : CAROL ROCHE MD This examination was interpreted and the report reviewed and electronically signed by: CAROL ROCHE MD on Apr 19 2021 2:02PM [facility] (n[facility]ative)[facility] - right 3 ViewsOrdered By: Ccf Provider on [id number] Vital Signs Date TimeVital SignValuePerforming GccgcezheBnkvjike66-78-8136 13:23-0400Body viwfhq430.6 cmDennis Furlong DO Work Phone: [facility]-2025 13:23-0400Body mass index (BMI) [Ratio]26.49 kg/t2Qjesph Furlong DO Work Phone[facility]10-02-2025 13:23-0400Body dicgyjneife62.3 [degF]Robert Furlong DO Work Phone: [facility]10-02-2025 13:23-0400Body mbnfwu97.03 kgDennis Furlong DO Work Phone: [facility]10-02-2025 13:23-0400Diastolic blood cyntwkpr12 mm[Hg]Robert Furlong DO Work Phone: [facility]10-02-2025 13:23-0400Heart rate 52 /minDennis Furlong DO Work Phone: [facility]10-02-2025 13:23-0400 Respiratory rate18 /minDennis Furlong DO Work Phone: [facility]10-02-2025 13:23-2267CbE4% (BldA) [Mass fraction]98 %Robert Furlong DO Work Phone[facility]10-02-2025 13:23-0400Systolic blood fnenlxaw006 mm[Hg]Robert Furlong DO Work Phone: [facility] Ceikfq07-72-0948 15:06-0400Body pwqyqs320.56 cmDennis Furlong DO Work Phone: [facility]09-08-2025 15:06-0400 Body mass index (BMI) [Ratio]25.9 kg/j6Cdulrx Furlong DO Work Phone: [facility]09-08-2025 15:06-0400 Body agdsba02.49 kgDennis Furlong DO Work Phone: [phone]09-08-2025 15:06-0400 Diastolic blood mesdksaz64 mm[Hg]Robert Furlong DO Work Phone: [phone]09-08-2025 15:06-0400 Heart rate59 /minDennis Furlong DO Work Phone: [phone]09-08-2025 15:06-0400 Respiratory rate20 /minDennis Furlong DO Work Phone: [phone]09-08-2025 15:06-0400 SaO2% (BldA) [Mass fraction]96 %Robert Furlong DO Work Phone: [phone]09-08-2025 15:06-0400 Systolic blood gerrhagm151 mm[Hg]Robert Furlong DO Work Phone: [facility]07-29-2025 14:06-0400 Body loyogv969.6 cmDennis Furlong DO Work Phone: [facility]07-29-2025 14:06-0400Body mass index (BMI) [Ratio]26.43 kg/c7Sduncj Furlong DO Work Phone: [facility]07-29-2025 14:06-0400Body mmushdciquv95.9 [degF]Robert Furlong DO Work Phone: [facility]07-29-2025 14:06-0400Body ilhoyp49.85 kgDennis Furlong DO Work Phone: [facility]07-29-2025 14:06-0400Diastolic blood xnbtmyof13 mm[Hg]Robert Furlong DO Work Phone: [facility]07-29-2025 14:06-0400Heart rate 56 /minDennis Furlong DO Work Phone: [facility]07-29-2025 14:06-0400 Respiratory rate20 /minDennis Furlong DO Work Phone: [facility]07-29-2025 14:06-6615NrY6% (BldA) [Mass fraction]98 %Robert Furlong DO Work Phone: [facility]07-29-2025 14:06-0400Systolic blood qpmchgni050 mm[Hg]Robert Furlong DO Work Phone: [facility]07-23-2025 09:15-0400Body .6 cmMaya Lynn EXPANSION JOINT BUILDER-GRAPHIC ART SALES REPRESENTATIVE Work Phone: [facility]07-23-2025 09:15-0400Body mass index (BMI) [Ratio]26.37 kg/l6QzwlevcMaya Lynn EXPANSION JOINT BUILDER-GRAPHIC ART SALES REPRESENTATIVE Work Phone: [facility]07-23-2025 09:15-0400Body .67 kgMaya Lynn EXPANSION JOINT BUILDER-GRAPHIC ART SALES REPRESENTATIVE Work Phone: [facility]07-17-2025 13:18-0400Body vmqzpo114.6 cmMartin Brown DPM Work Phone: [facility] SystemWfwowzxted27-96-1040 13:18-0400Body mass index (BMI) [Ratio]26.43 kg/f9Lycehpls Brown DPM Work Phone: [facility] SystemMerueguoyn03-30-9735 13:18-0400Body paxklg18.85 kgNicholas Brown DPM Work Phone: [facility] SystemUysrkypiwh63-56-8162 13:18-0400Respiratory rate16 /minNicholas Brown DPM Work Phone: [facility] SystemVdbqdwrxwx11-40-2304 14:48-0400Body mvqupz078.6 cmCarlos Sanchez MD Work Phone: [facility] SystemYjxaiestau88-57-3212 14:48-0400Body mass index (BMI) [Ratio]26.43 kg/n9HmqaxanCarlos Sanchez MD Work Phone: [facility] SystemJcjhmhewwj51-78-0039 14:48-0400Body .85 kgCarlos Sanchez MD Work Phone: [facility] SystemPptpcjdbwa31-38-9604 14:48-0400Diastolic blood eudrokim94 mm[Hg]Carlos Sanchez MD Work Phone: [facility] SystemOnogzbatsh08-32-7247 14:48-0400Systolic blood mm[Hg]Carlos Sanchez MD Work Phone: [facility] SystemPquoljzaie09-65-2663 11:29-0400Body hkbkof176.6 cmDennis Furlong DO Work Phone: [facility] [employer] Wvelnx62-78-9801 11:29-0400Body mass index (BMI) [Ratio]26.32 kg/k8Kfxzay Furlong DO Work Phone: [facility] [employer] Mdtjel82-22-8761 11:29-0400Body nnhxwmgefik87.39 [degF]Robert Furlong DO Work Phone: [facility]07-09-2025 11:29-0400Body mgkwol35.58 kgDennis Furlong DO Work Phone: [facility]07-09-2025 11:29-0400Diastolic blood gajtltpq02 mm[Hg]Robert Furlong DO Work Phone: [facility]07-09-2025 11:29-0400Heart rate 51 /minDennis Furlong DO Work Phone: [facility]07-09-2025 11:29-0400 Respiratory rate18 /minDennis Rosalinelong DO Work Phone: [facility]07-09-2025 11:29-7876EkL4% (BldA) [Mass fraction]98 %Robert Cramenlong DO Work Phone: [facility]07-09-2025 11:290400Systolic blood yqhkwikk767 mm[Hg]Robert Carmenlong DO Work Phone: [facility]06-19-2025 13:03-0400Body wmyncp271.6 cmNicholas Brown DPM Work Phone: [phone] [place], [place] [address]Yentujqhxh25-52-5652 13:03-0400Body mass index (BMI) [Ratio]26.95 kg/y8Rbaawooy Brown DPM Work Phone: [phone] [place], [place] [address]Tehrrqktgi02-77-5755 13:03-0400Body utoisy28.22 kgNicholas Brown DPM Work Phone: [facility] SystemTlpslrpdxb26-04-6455 13:03-0400Respiratory rate16 /minNicholas Brown DPM Work Phone: [facility] SystemPqciezxtsa94-64-8319 16:13-0400Body shjakp775.6 cmNicholas Brown DPM Work Phone: [facility] SystemSlliqtlplm36-30-2147 16:13-0400Body mass index (BMI) [Ratio]26.95 kg/i8Vnzsijbh Brown DPM Work Phone: [phone] [place], [place] [address]Mckxpyszeb41-47-8847 16:13-0400Body gtyyoh74.22 kgNicholas Brown DPM Work Phone: [phone] [place], [place] [address]Akbvywhrmo38-02-1577 16:13-0400Respiratory rate18 /minNicholas Brown DPM Work Phone: [facility] SystemRcvoudwcgm36-36-7806 13:06-0400Body mlisnl953.6 cmNicholas Brown DPM Work Phone: [phone] [place], [place] [address]Lybiwbzxyt53-02-5455 13:06-0400Body mass index (BMI) [Ratio]26.95 kg/w8RpnwvwyjMartin Arango DPM Work Phone: [facility] SystemZkrtszlspt45-82-4595 13:06-0400Body mirrau85.22 kgMartin Arango DPM Work Phone: [facility] SystemJblbmnsphq86-35-2439 13:06-0400Respiratory rate16 /minMartin Arango DPM Work Phone: [facility] SystemAlffecadvx32-12-4471 15:41-0400Body .6 cmDenmarcos Furlong DO Work Phone: [facility] [employer] Qaykeo05-03-9287 15:41-0400Body mass index (BMI) [Ratio]26.25 kg/t1Urtbpk Furlong DO Work Phone: [facility] [employer] Makasf38-85-1513 15:41-0400Body jarcwzbcmry94.81 [degF]Robert Furlong DO Work Phone: [facility] Zknayy80-46-6869 15:41-0400Body .4 kgDennis Furlong DO Work Phone: [facility] [employer] Huezjw55-58-1950 15:41-0400Diastolic blood nykifmkc44 mm[Hg]Robert Furlong DO Work Phone: [facility] [employer] Zurzls67-01-6405 15:41-0400Heart rate 58 /minDennis Furlong DO Work Phone: [facility] Erowbx11-83-9865 15:41-0400 Respiratory rate18 /minDennis Furlong DO Work Phone: [facility] [employer] Tqmfgb46-15-9448 15:41-0609RfS3% (BldA) [Mass fraction]97 %Robert Furlong DO Work Phone: [facility] [employer] Pcuwnt53-05-8464 15:41-0400Systolic blood cffmusno519 mm[Hg]Robert Rosalinelong DO Work Phone: [facility] [employer] Cxgvus14-51-7044 09:58-0400Body mass index (BMI) [Ratio]26.25 kg/x4Aqfgvbz Nienberg PA Work Phone: [facility]04-29-2025 09:58-0400Body .4 kgMatthew Nienberg PA Work Phone: [facility]04-29-2025 09:58-0400Diastolic blood xeahiqrx20 mm[Hg]Reyes Munozenberg PA Work Phone: [facility]04-29-2025 09:58-0400Heart rate 51 /minMatthew Nienberg PA Work Phone: [facility]04-29-2025 09:58-0400 Respiratory rate20 /minMatthew Nienberg PA Work Phone: [facility]04-29-2025 09:58-0400Systolic blood abwrdncg197 mm[Hg]Reyes Munozenberg PA Work Phone: [facility]04-17-2025 11:52-0400Body ytnuun956.6 cmNicholas Brown DPM Work Phone: [facility] SystemZufetgnzpi06-69-5739 11:52-0400Body mass index (BMI) [Ratio]26.95 kg/e2Yzndsviq Brown DPM Work Phone: [facility] SystemXtvqfoykzz28-28-5624 11:52-0400Body .22 kgNicholas Brown DPM Work Phone: [facility] SystemLzywjfadjo51-92-1343 11:52-0400Respiratory rate18 /minNicholas Brown DPM Work Phone: [facility] SystemJpqyrwqncw54-83-1337 10:36-0400Body eorpxj721.6 cmNicholas Brown DPM Work Phone: [facility] SystemCkovbctfii17-11-6620 10:36-0400Body mass index (BMI) [Ratio]26.95 kg/t2Hwbtrbah Brown DPM Work Phone: [facility] SystemLryvbwwelu12-28-9776 10:36-0400Body drkevh70.22 kgMary Kaykelin Arango DPM Work Phone: [facility] SystemWfovwrnilu81-38-1534 10:36-0400Respiratory rate16 /minJamalbarbarakelin Arango DPM Work Phone: [facility] SystemRefpmhuxzy36-56-9889 13:26-0400Body mass index (BMI) [Ratio]27.02 kg/o9KdudxibCarlos Sanchez MD Work Phone: [facility] SystemJxtcmryjsv10-78-6423 13:26-0400Body tuewmq53.4 kg Carlos Sanchez MD Work Phone: [facility] SystemCuyjzumxiw92-20-1530 15:29-0400Body wguuti459.6 cmDennis Furlong DO Work Phone: [facility] [employer] Xqpsob95-34-4482 15:29-0400Body mass index (BMI) [Ratio]26.95 kg/k3Xswset Furlong DO Work Phone: [facility] Hbbngd11-18-5636 15:29-0400Body sqteayesjeo81.2 [degF]Robert Furlong DO Work Phone: [facility] [employer] Wlpkqp10-52-2287 15:29-0400Body pagprw79.26 kgDennis Furlong DO Work Phone: [facility] [employer] Avmzui73-91-1008 15:29-0400Diastolic blood zcsivxrj06 mm[Hg]Robert Furlong DO Work Phone: [facility] [employer] Efyahs04-33-8909 15:29-0400Heart rate 68 /minDennis Furlong DO Work Phone: [facility] [employer] Nnxagg27-21-5737 15:29-0400 Respiratory rate18 /minDennis Furlong DO Work Phone: [facility]03-10-2025 15:29-4256AvW7% (BldA) [Mass fraction]96 %Robert Giron DO Work Phone: [facility]03-10-2025 15:29-0400Systolic blood xisjqwjd65 mm[Hg]Robert Giron DO Work Phone: [facility]02-24-2025 15:02-0500Body voxrnx598.56 cm[facility]02[facility]-2025 15:02-0500Body mass index (BMI) [Ratio]26.4 kg/t1AzrbqwkknSelect Medical [facility]ty [facility]02-24-2025 15:02-0500Body pzbejxurhva90.1 [degF][facility]02-24-2025 15:02-0500Body nvpirf41.85 kgSelect [facility]02-24-2025 15:02-0500Diastolic blood xycyjqwb41 mm[Hg][facility] 10-12-2024 15:02-0500Heart rate92 /[facility] 10-12-2024 15:02-0500Respiratory rate20 /[facility] 10-12-2024 15:02-0706OmY5% (BldA) [Mass fraction]96 %[facility]02-24-2025 15:02-0500Systolic blood eruplcet407 mm[Hg][facility]01-29-2025 13:06-0500Body hexzqd846.6 cmNikki Vergara ADJUNCT PSYCHOLOGY INSTRUCTOR Work Phone: [facility] SystemSyezuxrhwd46-17-0749 13:06-0500Body mass index (BMI) [Ratio]27.48 kg/t2Wpqxgbpdipika Vergara ADJUNCT PSYCHOLOGY INSTRUCTOR Work Phone: [facility] SystemVuedoriidy18-83-7663 13:06-0500Body .62 kgFedipika Vergara ADJUNCT PSYCHOLOGY INSTRUCTOR Work Phone: noSt. [facility] CenterGgnyvzulno37-43-1883 13:06-0500Diastolic blood sjffegef83 mm[Hg]Nikki Vergara ADJUNCT PSYCHOLOGY INSTRUCTOR Work Phone: [facility] SystemVjvhgewumn93-27-6668 13:06-0500Systolic blood tonkknow570 mm[Hg]Nikki Vergara ADJUNCT PSYCHOLOGY INSTRUCTOR Work Phone: [facility] SystemGbtcmhhmya72-56-1489 15:39-0500Body .6 cmDennis Furlong DO Work Phone: [facility] [employer] Ekqawk16-85-1125 15:39-0500Body mass index (BMI) [Ratio]27.29 kg/u4Apgymz Furlong DO Work Phone: [facility] [employer] Bhzyhp65-11-9476 15:39-0500Body zdacotycjpg73.7 [degF]Robertmarcos Carmenlong DO Work Phone: [facility]01-28-2025 15:39-0500Body .12 kgDennis Furlong DO Work Phone: [facility]01-28-2025 15:39-0500Diastolic blood edoccsty97 mm[Hg]Robert Furlong DO Work Phone: [facility] [employer] Swdtyg83-25-9913 15:39-0500Heart rate 104 /minDbradis Furlong DO Work Phone: [facility]01-28-2025 15:39-0500 Respiratory rate18 /minDennis Furlong DO Work Phone: [facility]01-28-2025 15:39-5972LmF9% (BldA) [Mass fraction]94 %Robert Furlong DO Work Phone: [facility] [employer] Wjeklf59-21-8939 15:39-0500Systolic blood iaueebkt58 mm[Hg]Robert Furlong DO Work Phone: [facility]01-08-2025 12:24-0500Diastolic blood pylcqnkw15 mm[Hg]Cady Ludia [facility]01-08-2025 12:24-0500Heart rate47 /minAmanda Alva [facility]01-08-2025 12:24-0500Mean blood wzuofpsf90 mm[Hg]Cady Alva [facility]01-08-2025 12:24-0500 Respiratory rate16 /minAmanda Alva [facility]01-08-2025 12:24-0500 Systolic blood qtridfah794 mm[Hg]Cady Alva [facility]12-26-2024 13:14-0500Blood Pressure LocationMikhail Josenus [facility]12-26-2024 13:14-0500 Diastolic blood lbmpwhey45 mm[Hg]Kehinde Kirnus [facility]12-26-2024 13:14-0500Heart rate62 /minMikhail Kirnus [facility]12-26-2024 13:14-0500 Respiratory rate18 /minMikhail Kirnus [facility]12-26-2024 13:14-6144NdK3% (BldA) [Mass fraction]98 %Kehinde Kirnus [facility]12-26-2024 13:14-0500 Systolic blood vurricfc492 mm[Hg]Kehinde Kirnus [facility]12-23-2024 13:09-0500Body jswokf799.6 cmCarlos Sanchez MD Work Phone: [facility] SystemBzvpkibmvw72-96-6766 13:09-0500Body mass index (BMI) [Ratio]28.15 kg/l5MylnvviCarlos Sanchez MD Work Phone: [facility] SystemPvcvqkzpus09-02-5787 13:09-0500Body gbegfe67.39 kgCarlos Sanchez MD Work Phone: [facility] SystemEnfjdnkatd52-84-9622 13:54-0500Body mass index (BMI) [Ratio]27.64 kg/t3Kanak Wilfredo DO Work Phone: [facility] SystemKfsircttfd85-25-1831 13:54-0500Body zjhkte89.03 kgCorey Wilfredo DO Work Phone: [facility] SystemIlbtsinkjp97-04-5416 13:54-0500Diastolic blood itabodvz80 mm[Hg]David Wilfredo DO Work Phone: [facility] SystemSrzbnqjiiy19-72-0890 13:54-0500Systolic blood mm[Hg]David Wilfredo DO Work Phone: [facility] SystemIdcvoupvro56-75-9159 15:01-0400Body tfylhb641.6 cmMartin Arango DPM Work Phone: [facility] SystemGygfwpmdjr86-30-9287 15:01-0400Body mass index (BMI) [Ratio]28.15 kg/k3RnodtiwsMartin Arango DPM Work Phone: [facility] SystemFtnebpdccn86-15-7782 15:01-0400Body qqizqd48.39 kgMartin Arango DPM Work Phone: [facility] SystemIwfzhqvfvv37-04-8585 15:01-0400Diastolic blood lxtacfqq55 mm[Hg]Martin Arango DPM Work Phone: [facility] SystemPcgyhvamfc93-08-0907 15:01-0400Heart rate84 /min Martin Arango DPM Work Phone: [facility] SystemKigttlychi72-28-9162 15:01-0400Systolic blood yqgivmjm014 mm[Hg]Martin Arango DPM Work Phone: [facility] SystemLdqvoznwxc83-64-8590 10:18-0400Body nmauig251.6 cmMartin Arango DPM Work Phone: [facility] SystemZgvdfyogxb58-32-6276 10:18-0400Body mass index (BMI) [Ratio]28.15 kg/t1LnxsnvucMartin Arango DPM Work Phone: [facility] SystemXsgwxzcuql62-61-0314 10:18-0400Body sekdzi29.39 kgMartin Arango DPM Work Phone: [facility] SystemDzkmjcgqlu59-22-7067 10:18-0400Diastolic blood cqehzbrv94 mm[Hg]Martindariana Arango DPM Work Phone: [facility] SystemRvsfolqpnm64-75-9709 10:18-0400Heart rate75 /min Martin Arango DPM Work Phone: [place] [address]Fwxcmslcsm95-80-9810 10:18-0400Respiratory rate18 /minMartin Harsh DPM Work Phone: [place] [address]Btjaqczxen63-74-9578 10:18-0400Systolic blood xxshtefh480 mm[Hg]Martin Brown DPM Work Phone: [facility] SystemZgfpygcfgx23-35-5425 14:22-0400Body owbexm412.6 cmCarlos Sanchez MD Work Phone: [place] [address]Uuhzdazndb55-69-1525 14:22-0400Body mass index (BMI) [Ratio]28.15 kg/p7OsiynxnCarlos Sanchez MD Work Phone: [facility] SystemLjwvyxixlh25-74-9622 14:22-0400Body .39 kgCarlos Sanchez MD Work Phone: [facility] SystemFpzkstziev04-04-8543 14:22-0400Diastolic blood mm[Hg]Carlos Sanchez MD Work Phone: [place] [address]Zsgaetbipr00-03-6298 14:22-0400Systolic blood ehmgluko567 mm[Hg]Carlos Sanchez MD Work Phone: [place] [address]Muaaxznexk22-67-7440 09:33-0400Body .6 cmMartin Harsh DPM Work Phone: [facility] SystemBypzlxfvoc75-02-4907 09:33-0400Body mass index (BMI) [Ratio]28.15 kg/n5ToecyruiMartin Arango DPM Work Phone: [facility] SystemDixcfwqlmd60-18-2483 09:33-0400Body .39 kgMartin Harsh DPM Work Phone: [facility] SystemAfwomggrxb63-01-6574 09:33-0400Diastolic blood ttusigrh22 mm[Hg]Martin Arango DPM Work Phone: 1(770)357-[address] [place], [place] [address]Zmacrhvmfp06-36-4066 09:33-0400Heart rate74 /min Martin Arango DPM Work Phone: [place] [address]Egwtbbokwg78-16-0798 09:33-0400Respiratory rate18 /minMartin Arango DPM Work Phone: [facility] SystemQvkbpinrjv77-02-0851 09:33-0400Systolic blood xvjdygnm230 mm[Hg]Martin Arango DPM Work Phone: 1(000)798-[address] [place], [place] [address]Mvxxvedfxg97-05-9708 10:21-0400Body yuqfux999.6 cmMartin Arango DPM Work Phone: 1(505)535-[facility] SystemPthcdgvaig92-02-0014 10:21-0400Body mass index (BMI) [Ratio]28.15 kg/n4Uocizqla Harsh DPM Work Phone: [facility] SystemZiwrmtevhb61-60-0678 10:21-0400Body zesjih60.39 kgMartin Harsh DPM Work Phone: 1(614)027-[address] [place], [place] [address]Jmtceejdlo08-89-5526 10:21-0400Diastolic blood zuwfkvcg05 mm[Hg]Martin Arango DPM Work Phone: [facility] SystemTpndhovajh90-42-0042 10:21-0400Heart rate78 /min Martin Arango DPM Work Phone: 1(317)775-[address] [place], [place] [address]Wlozkaydou72-74-4713 10:21-0400Systolic blood mm[Hg]Martin Arango DPM Work Phone: [facility] SystemRkdojzeaek13-91-2072 12:20-0400Body olzphh020.6 cmMaria Apling ADJUNCT PSYCHOLOGY INSTRUCTOR Work Phone: [facility] SystemSxkzzdwlyy66-64-0464 12:20-0400Body mass index (BMI) [Ratio]28.15 kg/y9AcavpCj Connelling ADJUNCT PSYCHOLOGY INSTRUCTOR Work Phone: [facility] SystemFjlnsigvdd69-49-0929 12:20-0400Body .39 kgCj Connelling ADJUNCT PSYCHOLOGY INSTRUCTOR Work Phone: [facility] SystemBkqsmhfxkc24-87-4664 15:16-0400Diastolic blood nuejxwbf29 mm[Hg]Andrew Eid [facility]07-18-2024 15:16-0400Heart rate62 /minBradford Eid [facility]07-18-2024 15:16-0400Mean blood mm[Hg]Andrew Stanton [facility]07-18-2024 15:16-0400 Respiratory rate14 /minBradford Stanton [facility]07-18-2024 15:16-0400 Systolic blood dnctmxsa154 mm[Hg]Morales Stanton [facility]06-13-2024 13:54-0400 Diastolic blood yigxzoes03 mm[Hg]En Carmen [facility]06-13-2024 13:54-0400 Systolic blood mm[Hg]En Carmen [facility]05-29-2024 08:16-0400 Diastolic blood ugusndct57 mm[Hg]Cady Alva [facility]05-29-2024 08:16-0400Heart rate73 /minAmanchapin Alva [facility]05-29-2024 08:16-0400Mean blood ybulgias51 mm[Hg]Cady Alva [facility]05-29-2024 08:16-0400 Respiratory rate16 /minAmanda Ludia [facility]05-29-2024 08:16-0400 Systolic blood xzbuyszx713 mm[Hg]Cady Alva [facility]05-15-2024 11:04-0400 Diastolic blood ssjmkydd85 mm[Hg]Cady Alva [facility]05-15-2024 11:04-0400Heart rate62 /minAmanda Ludia [facility]05-15-2024 11:04-0400Mean blood qseieiae63 mm[Hg]Cady Alva [facility]05-15-2024 11:04-0400 Respiratory rate12 /minAmanda Ludia [facility]05-15-2024 11:04-0400 Systolic blood mosgffsm472 mm[Hg]Cady Alva [facility]05-14-2024 12:53-0400Blood Pressure LocationJENNIFER YUDY [facility]05-14-2024 12:53-0400Diastolic blood gyxtdzwi11 mm[Hg]SHERI YUDY [facility]05-14-2024 12:53-0400Heart rate57 /minJENNIFER YUDY [facility]05-14-2024 12:53-0400Respiratory rate16 /minJENNIFER YUDY [facility]05-14-2024 12:53-0400Systolic blood mm[Hg]SHERI YUDY [facility]04-24-2024 09:29-0400Heart rate89 /minBrabasilio Eid [facility]04-24-2024 09:29-2458BuG5% (BldA) [Mass fraction]96 %Andrew Eid [facility]04-24-2024 09:29-0400 Diastolic blood shnasckh21 mm[Hg]Andrew Eid [facility]04-24-2024 09:29-0400Mean blood zepfalvy283 mm[Hg]Andrew Eid [facility]04-24-2024 09:29-0400 Systolic blood qudxcmfy327 mm[Hg]Andrew Eid [facility]04-24-2024 09:29-0400 Respiratory rate14 /minBradfconrad Eid [facility] [place]04-24-2024 09:25-0400 Diastolic blood wrjpbqum06 mm[Hg]Andrew Eid [facility] [place]04-24-2024 09:25-0400Heart rate97 /minBrabasilio Eid [facility] [place]04-24-2024 09:25-5669NoY2% (BldA) [Mass fraction]96 %Andrew Eid [facility] [place]04-24-2024 09:25-0400 Systolic blood hqzjyrdv083 mm[Hg]Andrew Eid [facility] [place]04-24-2024 08:44-0400Heart rate93 /minBrabasilio Eid [facility] [place]04-24-2024 08:44-7312PfY5% (BldA) [Mass fraction]94 %Andrew Eid [address] [place], [place] [address]0104-24-2024 08:44-0400Body nhjquisyywh26.24 [degF]Andrew Eid [facility] [place]04-24-2024 08:43-0400 Diastolic blood haymmwgd49 mm[Hg]Andrew Eid [facility] [place]04-24-2024 08:43-0400Mean blood hknyzxuc045 mm[Hg]Andrew Eid [facility] [place]04-24-2024 08:43-0400 Systolic blood ctnvcivj592 mm[Hg]Andrew Eid [address] [place], [place] 9160104-24-2024 08:43-0400 Respiratory rate15 /minBrabasilio Stanton [address] [place], [place] 9160103-20-2024 09:32-0400 Diastolic blood mm[Hg]Cady Artie [address] [place], [place] 9160103-20-2024 09:32-0400Heart rate79 /minAmanda Alva [address] [place], [place] 9160103-20-2024 09:32-0400Mean blood cmlvxtki02 mm[Hg]Cady Alva [address] [place], [place] 9160103-20-2024 09:32-0400 Respiratory rate15 /minAmanda Alva [facility]03-20-2024 09:32-0400 Systolic blood xncqxesf400 mm[Hg]Cady Alva [facility] [place]02-08-2024 15:11-0500Body ggpnon860.1 cmMartin BLOOMM Work Phone: [facility] [phone] 15:11-0500Body mass index (BMI) [Ratio]29.29 kg/n5BlffuhjxMartin Arango DPM Work Phone: noSt. [facility] Medical [phone] 15:11-0500Body hqiirp46.83 kgNicholas Brown DPM Work Phone: [facility] SystemRufbsvxpxz09-61-2949 15:11-0500Diastolic blood zwcgabhd97 mm[Hg]Martin Arango DPM Work Phone: [facility] [phone] 15:11-0500Heart rate79 /min Martin Arango DPM Work Phone: [facility] SystemGrkrtwigmx24-62-5325 15:11-0500Systolic blood iyyljagh804 mm[Hg]Martin Arango DPM Work Phone: [facility] [phone] 08:23-0500Blood Pressure LocationJENNIFER YUDY [facility]01-30-2024 08:23-0500Diastolic blood mm[Hg]SHERI YUDY [facility]01-30-2024 08:23-0500Heart rate65 /minJENNIFER YUDY [facility]01-30-2024 08:23-0500Respiratory rate16 /minJENNIFER YUDY [facility]01-30-2024 08:23-0500Systolic blood rjjopgrv291 mm[Hg]SHERI YUDY [facility]01-09-2024 10:30-0500Body mtvswi351.1 cmHeidi Yael Other [employer] Other 01-09-2024 10:30-0500Body mass index (BMI) [Ratio] 29.28 kg/m4Xdowr Yael Other [employer] Other 01-09-2024 10:30-0500Body bcgirbkqrzo60.2 [degF]Valarie Yael Other [employer] Other 01-09-2024 10:30-0500Body vxqwau75.83 kgHeidi Yael Other [employer] Other 01-09-2024 10:30-0500Diastolic blood muvulxvs63 mm[Hg] Valarie Yael Other [employer] Other 01-09-2024 10:30-0500Respiratory rate20 /minHeidi Yael Other [employer] Other 01-09-2024 10:30-5518SoW9% (BldA) [Mass fraction]93 % Valarie Yael Other [facility] [employer] Other 01-09-2024 10:30-0500Systolic blood iuhstkmz642 mm[Hg] Valarie Yael Other [facility] [employer] Other 12-07-2023 10:39-0500Blood Pressure LocationDadavide SOLIS [facility]12-07-2023 10:39-0500 Diastolic blood wcjynxra86 mm[Hg]Elliott SOLIS [facility] [place]12-07-2023 10:39-0500Heart rate76 /minDshanti SOLIS [facility] [place]12-07-2023 10:39-1696MuU3% (BldA) [Mass fraction]97 %Elliott SOLIS [facility] [place]12-07-2023 10:39-0500 Systolic blood mm[Hg]Elliott SOLIS [address] [place], [place] 9071011-17-2023 15:44-0500Blood Pressure LocationAmanda FIFI [address] [place], [place] 2396211-17-2023 15:44-0500 Diastolic blood vvdyesbg04 mm[Hg]Cady CALIX [address] [place], [place] 2396211-17-2023 15:44-0500Heart rate70 /minAmanda FIFI [address] [place], [place] 2396211-17-2023 15:44-4274KiQ2% (BldA) [Mass fraction]99 %Cadyblaine CALIX [address] [place], [place] 2396211-17-2023 15:44-0500 Systolic blood iqstpvcy254 mm[Hg]Cady CALIX [address] [place], [place] 2396210-02-2023 10:03-0400Blood Pressure LocationAmanchapin CALIX [address] [place], [place] 2396210-02-2023 10:03-0400 Diastolic blood gbxsqynh78 mm[Hg]Cadyblaine CALIX [address] [place], [place] 2396210-02-2023 10:03-0400Heart rate75 /minAmanda FIFI [address] [place], [place] 2396210-02-2023 10:03-6867XlD6% (BldA) [Mass fraction]98 %Cadyblaine CALIX [address] [place], [place] 2396210-02-2023 10:03-0400 Systolic blood brsdpars723 mm[Hg]Cadyblaine CALIX [address] [place], [place] 2396207-11-2023 08:30-0400Body lcktec539.1 cmHeidi Yael Other [employer] Other 07-11-2023 08:30-0400Body mass index (BMI) [Ratio] 28.25 kg/q4Ztsrj Yael Other [facility] [employer] Other 07-11-2023 08:30-0400Body svxdtsjkpoh82.9 [degF]Valarie Yael Other [employer] Other 07-11-2023 08:30-0400Body .02 kgHeidi Yael Other [employer] Other 07-11-2023 08:30-0400Diastolic blood nghkyukk60 mm[Hg] Valarie Yael Other [employer] Other 07-11-2023 08:30-0400Respiratory rate20 /minHeidi Yael Other [employer] Other 07-11-2023 08:30-5696JbS0% (BldA) [Mass fraction]Valarie Yael Other [employer] Other 07-11-2023 08:30-0400Systolic blood bkpfinjc540 mm[Hg] Valarie Yael Other [employer] Other 06-01-2023 10:04-0400Diastolic blood olwajfep02 mm[Hg] Poole SALAM [facility]06-01-2023 10:04-0400Heart rate70 /minMaher SALAM [facility]06-01-2023 10:04-0400Mean blood mm[Hg]Poole SALAM [facility] [place]06-01-2023 10:04-0400 Respiratory rate17 /minMaher SALAM [facility]06-01-2023 10:04-9734MsE5% (BldA) [Mass fraction]99 %Poole SALAM [facility] [place]06-01-2023 10:04-0400 Systolic blood hblvzotd129 mm[Hg]Poole SALAM [facility] [place]06-01-2023 09:55-0400 Diastolic blood cyvnqqun91 mm[Hg]Poole SALAM [facility] [place]06-01-2023 09:55-0400Heart rate74 /minMaher SALAM [facility]06-01-2023 09:55-0400Mean blood vwsggoko47 mm[Hg]Poole SALAM [facility]06-01-2023 09:55-0400 Respiratory rate15 /minMaher SALAM [facility] [place]06-01-2023 09:55-3713KtE4% (BldA) [Mass fraction]99 %Poole SALAM [facility] [place]06-01-2023 09:55-0400 Systolic blood dbsqkgor358 mm[Hg]Poole SALAM [facility] [place]06-01-2023 09:50-0400 Diastolic blood jxrbbabe46 mm[Hg]Poole SALAM [facility] [place]06-01-2023 09:50-0400Heart rate73 /minMaher SALAM [facility] [place]06-01-2023 09:50-0400Mean blood mryfnbuz23 mm[Hg]Poole SALAM [facility]06-01-2023 09:50-0400 Respiratory rate13 /minMaher SALAM [facility]06-01-2023 09:50-7942NnW8% (BldA) [Mass fraction]98 %Zulema FITCH [facility]06-01-2023 09:50-0400 Systolic blood qhxrveew853 mm[Hg]Zulema FITCH [facility] [place]06-01-2023 09:39-0400Body albmnbjjypo41.24 [degF]Zulema FITCH [facility] [place]06-01-2023 08:35-0400Blood Pressure LocationWiher FITCH [facility] [place]06-01-2023 08:35-0400Body psztexkmprg17.06 [degF]Poole [facility]ROGERIO [facility] [place]04-05-2023 12:41-0400Heart rate61 /Ata Arango [facility]04-05-2023 12:41-4504FwT9% (BldA) [Mass fraction]97 %Martin Arango [facility] [place]04-05-2023 12:41-0400 Diastolic blood mm[Hg]Martin Arango [facility] [place]04-05-2023 12:41-0400Mean blood utybugub31 mm[Hg]Martin Arango [facility] [place]04-05-2023 12:41-0400 Systolic blood lmdgxepb158 mm[Hg]Martin Arango [facility] [place]04-05-2023 12:41-0400Body hpuftxdcmfl39.98 [degF]Martin Arango [facility] [place]04-05-2023 12:40-0400 Respiratory rate16 /Ata Arango [facility] [place]04-05-2023 11:09-0400Heart rate66 /Ata Arango [facility] [place]04-05-2023 11:09-4452GbT1% (BldA) [Mass fraction]100 %Martin Arango [facility]04-05-2023 11:09-0400 Diastolic blood cngcifsh20 mm[Hg]Martin Arango [facility]04-05-2023 11:09-0400Mean blood zcoaubiw66 mm[Hg]Martin Arango [facility]04-05-2023 11:09-0400 Systolic blood urdujfgu136 mm[Hg]Martin Arango [facility]04-05-2023 11:09-0400Body mndakvaoxjx14.06 [degF]Martin Arango [facility]04-05-2023 11:08-0400 Respiratory rate14 /Ata Arango [facility]04-05-2023 10:55-0400Body wkohgnbifbn77.16 [degF]Martin Arango [facility]04-05-2023 10:55-0400 Diastolic blood tutqgbwl46 mm[Hg]Martin Arango [facility]04-05-2023 10:55-0400Heart rate65 /Ata Arango [facility]04-05-2023 10:55-0400Mean blood awcycejf11 mm[Hg]Martin Arango [facility]04-05-2023 10:55-0400 Respiratory rate18 /Ata Arango [facility]04-05-2023 10:55-1083PfD9% (BldA) [Mass fraction]98 %Martin Arango [facility]04-05-2023 10:55-0400 Systolic blood apkqcrfq605 mm[Hg]Martin Arango [facility]04-05-2023 10:45-0400Mean blood hoonqqzl67 mm[Hg]Martin Arango [facility]04-05-2023 10:45-0400 Respiratory rate15 /Ata Arango [facility]04-05-2023 10:30-0400Mean blood cjcsunpo74 mm[Hg]Martin Arango [facility] [place]04-05-2023 10:30-0400 Respiratory rate13 /Ata Arango [facility] [place]04-05-2023 10:15-0400 Respiratory rate1 /Ata Arango [facility]04-05-2023 07:43-0400Mean blood orutrvmy015 mm[Hg]Martin Arango [facility] [place]04-05-2023 07:43-0400Heart rate62 /Ata Arango [facility] [place]03-14-2023 15:25-0400Blood Pressure LocationDadavide Solis [facility] [place]03-14-2023 15:25-0400 Diastolic blood sgcvhsyr99 mm[Hg]Elliott Solis [facility] [place]03-14-2023 15:25-0400Heart rate70 /minDshanti Solis [facility]03-14-2023 15:25-3930BcW8% (BldA) [Mass fraction]95 %Elliott Parvez [facility] [place]03-14-2023 15:25-0400 Systolic blood ozfllmqv092 mm[Hg]Elliott Parvez [facility] [place]03-13-2023 14:56-0400 Diastolic blood naahoiwi87 mm[Hg]Inessa Grajeda [phone]-UeqtwMer[facility] Health [facility]03-13-2023 14:56-0400Mean blood mm[Hg]Inessarm CarmenNicci [phone]-GrrbaMercy Health Anderson Hospital03-13-2023 14:56-0400Systolic blood qddrnkwo640 mm[Hg]Inessarm CarmenNicci [phone]-PjngiMercy Health [facility] Hospital03-13-2023 14:50-0400Blood Pressure LocationBeth Nicci 215-1209Bkhghm-WkudoMercy Health [facility] Hospital03-13-2023 14:50-0400Body qrwwxalommi30.88 [degF]Inessa Nicci 533-1596Snwhvi-VgfcvMercy Health [facility] Hospital03-13-2023 14:50-0400Diastolic blood mgqlnaal33 mm[Hg]Inessarm CarmenNicci 160-3582Isnuje-RbfjiMercy Health [facility] Hospital03-13-2023 14:50-0400Heart rate85 /minBeth Nicci 426-5757Vccafx-PejuzMercy Health [facility] Hospital03-13-2023 14:50-0400Systolic blood idwpevuu995 mm[Hg]Inessa Nicci 470-9045Mxvemp-DrlmcMercy Health [facility] Hospital03-04-2023 10:33-0500Body lkjigjjubeo42.9 [degF]Santos Landry [facility]03-04-2023 10:33-0500 Diastolic blood yicslroh15 mm[Hg]Santos Landry [address] [place], [place] 6305503-04-2023 10:33-0500Heart rate62 /minSantos Landry [facility]03-04-2023 10:33-0500 Respiratory rate18 /minSantos Landry [address] [place], [place] 6305503-04-2023 10:33-9264BmV7% (BldA) [Mass fraction]100 %Santos Landry [address] [place], [place] 6305503-04-2023 10:33-0500 Systolic blood imqcycqs529 mm[Hg]Santos Landry [address] [place], [place] 6305502-24-2023 13:06-0500Body koiniauhxiw53.7 [degF]Santos Landry [address] [place], [place] 6305502-24-2023 13:06-0500 Diastolic blood qkoyovwl57 mm[Hg]Santos Landry [address] [place], [place] 6305502-24-2023 13:06-0500Heart rate68 /Jael Landry [address] [place], [place] 1533302-24-2023 13:06-0500 Respiratory rate18 /minSantos Landry [address] [place], [place] 6305502-24-2023 13:06-8765FoR2% (BldA) [Mass fraction]98 %Santos Landry [address] [place], [place] 6305502-24-2023 13:06-0500 Systolic blood gwfxjuae837 mm[Hg]Santos Landry [facility]02-14-2023 12:31-0500Blood Pressure [facility] [phone]-NihsaMercy Health [facility] Rpmaoc52-80-5305 12:31-0500Diastolic blood mm[Hg]Inessa Grajeda [phone]-QklkpMercy Health [facility] Hospital02-14-2023 12:31-0500Heart rate56 /minBeth Nicci 240-5125Bllisv-GntiaMercy Health [facility] Hospital02-14-2023 12:31-3840FnH3% (BldA) [Mass fraction]100 %Inessa Grajeda 551-6788Ltbnhd-NzmeyMercy Health Anderson Hospital02-14-2023 12:31-0500Systolic blood fhezmzcp019 mm[Hg]Inessa Grajeda 586-2020Yyneba-DauddMercy Health [facility] Hospital01-19-2023 10:09-0500Blood Pressure LocationMaher SALAM [facility]01-19-2023 10:09-0500 Diastolic blood mm[Hg]Poole SALAM [facility]01-19-2023 10:09-0500Heart rate70 /minMaher SALAM [facility]01-19-2023 10:09-0500 Respiratory rate22 /minMaher SALAM [facility]01-19-2023 10:09-0500 Systolic blood eccjmsks499 mm[Hg]Poole SALAM [facility]01-19-2023 10:05-0500Blood Pressure LocationMaher SALAM [facility]01-19-2023 10:05-0500 Diastolic blood ebssulyj14 mm[Hg]Poole SALAM [facility]01-19-2023 10:05-0500Heart rate66 /minMaher SALAM [facility]01-19-2023 10:05-0500 Respiratory rate20 /minMaher SALAM [facility]01-19-2023 10:05-6667ZjL7% (BldA) [Mass fraction]100 %Poole SALAM [facility]01-19-2023 10:05-0500 Systolic blood nvgdqled77 mm[Hg]Poole SALAM [facility]01-19-2023 10:00-0500Heart rate59 /minMaher SALAM [facility]01-19-2023 10:00-0500 Respiratory rate17 /minMaher SALAM [facility]01-19-2023 10:00-0500 Systolic blood johztjkg11 mm[Hg]Poole SALAM [facility]01-19-2023 09:55-5048UkW2% (BldA) [Mass fraction]100 %[facility]01-19-2023 09:40-0500Body ymwepyisfuc96.62 [degF][facility] SALAM [facility]01-19-2023 07:35-0500Body lfqlbjjoibd98.62 [degF]Poole SALAM [facility]11-17-2022 10:00-0500Body kecjga880.1 cmHeidi Yael Other [employer] Other 11-17-2022 10:00-0500Body mass index (BMI) [Ratio] 28.95 kg/z7Xlcvn Yael Other [employer] Other 11-17-2022 10:00-0500Body dbfuqqeafqw63 [degF]Valarie Yael Other [employer] Other 11-17-2022 10:00-0500Body ihczaa65.93 kgHeidi Yael Other [facility] [employer] Other 11-17-2022 10:00-0500Diastolic blood wdfbunjz52 mm[Hg] Valarie Yael Other [facility] [employer] Other 11-17-2022 10:00-0500Respiratory rate20 /minHeidi Yael Other [facility] [employer] Other 11-17-2022 10:00-2357BeG4% (BldA) [Mass fraction]Valarie Yael Other [employer] Other 11-17-2022 10:00-0500Systolic blood mm[Hg] Valarie Yael Other [facility] [employer] Other 09-27-2022 13:22-0400Diastolic blood meiatkxm27 mm[Hg] Cady CALIX [facility]09-27-2022 13:22-0400Mean blood yuzokknz01 mm[Hg]Cadyblaine CALIX [facility]09-27-2022 13:22-0400 Systolic blood gxehghuz837 mm[Hg]Cadyblaine CALIX [facility]09-27-2022 13:08-0400Blood Pressure LocationAmanchapin CALIX [facility] [place]09-27-2022 13:08-0400 Diastolic blood dpijbzrz41 mm[Hg]Cadyblaine CALIX [facility]09-27-2022 13:08-0400Heart rate62 /minAmanda STANG [address] [place], [place] 9071009-27-2022 13:08-0400 Respiratory rate18 /minAmanda STANG [address] [place], [place] 9071009-27-2022 13:08-7581RlV6% (BldA) [Mass fraction]100 %Cady CALIX [address]09-27-2022 13:08-0400 Systolic blood sowbmqma621 mm[Hg]Cady CALIX [address]08-02-2022 13:16-0400 Diastolic blood ljbptoyi01 mm[Hg]Elliott Solis [address]08-02-2022 13:16-0400Heart rate73 /Surekhashanti Solis [address] [place], [place] 9071008-02-2022 13:16-0400Mean blood mm[Hg]Elliott Solis [address] [place], [place] 9071008-02-2022 13:16-0400 Respiratory rate18 /Anabell Solis [address] [place], [place] 9071008-02-2022 13:16-0400 Systolic blood mm[Hg]Elliott Solis [address] [place], [place] 9071007-19-2022 10:27-0400Blood Pressure LocationAmanda ERNIEG [address] [place], [place] 9071007-19-2022 10:27-0400 Diastolic blood mm[Hg]Cady CALIX [address] [place], [place] 9071007-19-2022 10:27-0400Heart rate68 /minAmanda STANG [address] [place], [place] 9071007-19-2022 10:27-0400 Respiratory rate18 /minAmanda STANG [facility]07-19-2022 10:27-9706YeF2% (BldA) [Mass fraction]98 %Cady CALIX [facility]07-19-2022 10:27-0400 Systolic blood tkejiozf269 mm[Hg]Cady CALIX [facility]05-26-2022 15:06-0400 Diastolic blood hpnxezog88 mm[Hg]Poole SALAM [phone]-IgqbdMer[facility] Health [facility] 05-26-2022 15:06-0400Heart rate61 /minMaher SALAM [phone]-EjshzMercy Health [facility] 05-26-2022 15:06-0400Systolic blood zznbukgd878 mm[Hg] Poole SALAM [phone]-MzvxmPromedica Memorial Hospital [facility] 04-25-2022 12:00-0400Blood Pressure LocationPatrick InSound Medical [facility] 04-25-2022 12:00-0400Diastolic blood iaychasv82 mm[Hg] Donaldo PEARSON [facility] 04-25-2022 12:00-0400Heart rate78 /minPatrick PEARSON [facility] 04-25-2022 12:00-0400Systolic blood jdjxzide239 mm[Hg] Donaldo [facility] [facility] Encounters Encounter DateEncounter TypeCare ProviderFacilityStart: 42-57-5791unqwywsffw Donaldo PEARSONFacility:[facility]: 21-12-7745kicpnsphujMzsstz Tanna [facility] 06-01-2025 End: 42-02-0726Qtxtsymuc encounterSnaz Hammond PTNOMS Vargas Physical TherapyComment on above:Concerning OP PO PT; dos 05/31Start: 05-31-2025 ambulatoryVITHAL SHENDGniversGrant Hospitaltart: 05-31-2025 End: 69-23-6110bbmvuyvrgtFXPFMG SHENDGniversGrant Hospitaltart: 05-28-2025 End: 04-97-6661Walhqc OnlyRobert Giron DO Work Phone: [facility] Baptisttart: 64-54-2904hkdiurmvzwDPHAGMMadison Healthtart: 25-18-3793Fmmmjoenr for other preprocedural examinationLutheran Hospitaltart: 05-26-2025 End: 36-48-6698Fgtervekl encounterRamona Silva CMAProMedica Physicians Internal Medicine - Family MedicineStart: 05-26-2025 End: 72-67-3853fijjffsuhqFDAOWP SKIEUniTrinity Health System West Campustart: 05-24-2025 End: 44-38-4424Kcnokzgod encounterCarlos Sanchez MD Work Phone: [facility] Lorenzo NeurologyStart: 05-21-2025 End: 29-22-4039PmwghcCikbzx G Furlong DO Work Phone: [facility] - Family MedicineComment on above:Type 2 diabetes mellitus with hyperglycemia, without long-term current use of insulin ([facility])Start: 05-20-2025 End: 11-80-8032Zlxysb outpatient visit 25 minutesRobert Giron DO Work Phone: [facility] Family MedicineComment on above:Pre-operative clearance (Primary Dx); Complex tear of medial meniscus of left knee, sequela; Essential hypertension; Generalized anxiety disorder; Chronic obstructive pulmonary disease, unspecified COPD type ([facility]); Diabetes mellitus without complication ([facility])Start: 05-20-2025 End: 62-86-4817Fmstkweaqadw stateDhardy Pamela Carmencasey DO Work Phone: [facility] Work Phone: Start: 05-20-2025 End: 28-35-4709micsgmacolHJETJV G FURLONGSelect Medical [facility] Ambulatory PPGStart: 05-19-2025 End: 16-79-3964Qjqxkqgmj encounterLisa [facility] ClinicStart: 05-18-2025 End: 95-11-1358uljeezxpilNDMPNWWVUMedicine Harrison Community Hospitaltart: 05-17-2025 End: 57-02-3743TttmnsJmmgqf G Rosalinecasey DO Work Phone: [facility] Family MedicineComment on above:Complex tear of medial meniscus of left knee, sequela Start: 05-10-2025 End: 04-99-9256ZmfjhuCprvfl G Rosalinecasey DO Work Phone: [facility] - Family MedicineComment on above:Complex tear of medial meniscus of left knee, sequela Start: 05-05-2025 End: 71-10-9961diqtbhnkmvDUPEBQCommunity Regional Medical Centertart: 05-04-2025 End: 76-09-1905eurndnvtfcHsssygh R WATERSFacility:EU SanduskyStart: 05-04-2025 End: 16-54-0844Ovmimtn encounter procedureDonaldo PEARSON [facility] Start: 05-03-2025 End: 30-91-8518UcxyatBvlauq G Rosailnecasey DO Work Phone: [facility] Family MedicineComment on above:Complex tear of medial meniscus of left knee, sequela Start: 04-26-2025 End: 98-44-4818bagthhemrkXjtcjm Furlong DO Work Phone: [facility] Work Phone: Start: 04-26-2025 End: 40-95-4982Zmqukxn encounter procedureValarie Brink APRN ETGF-UN-Zqclrmvbj Health Pulmonary Work Phone: Start: 04-25-2025 End: 15-96-9983VjobgiBzdxds G Furlong DO Work Phone: [facility] Family MedicineComment on above:Complex tear of medial meniscus of left knee, sequela Start: 04-21-2025 End: 89-85-4636LhwktzJrvwym G Furlong DO Work Phone: [facility] Family MedicineComment on above:AnxietyStart: 32-72-2696Wxsxbcrap for other preprocedural examinationGEORGE C STEPANICMagruder HospitalStart: 04-20-2025 End: 70-97-4048sigunrlpdiRJUJXG C STEPANICFacility:[facility] HospitalStart: 04-18-2025 End: 37-03-3900ObrqgvYqffhf G Furlong DO Work Phone: [facility] Family MedicineComment on above:Complex tear of medial meniscus of left knee, sequela Start: 04-15-2025 End: 27-51-4253LvpncqSxuopy G Furlong DO Work Phone: [facility] - Family MedicineComment on above:Type 2 diabetes mellitus with diabetic mononeuropathy, without long-term current use of insulin ([facility])Start: 04-13-2025 End: 99-84-5641Zmjeazy encounter procedureValarie Brink APRN [facility] [place] Work Phone: Start: 04-13-2025 End: 75-58-9308sxejwejmlwHwvoaf Furlong DO Work Phone: [facility] Work Phone: Start: 04-12-2025 End: 12-52-2757YgzmfgXkvopzv Boggs CMAProMedica Physicians Internal Medicine - Family MedicineComment on above:Complex tear of medial meniscus of left knee, sequelaStart: 04-08-2025 End: 85-33-2399BeivtkQpdcoj G Furlong DO Work Phone: [facility] - Family MedicineStart: 28-92-7094rmaiettfkiPPUKHR C STEPANICFacility:[facility] Start: 04-04-2025 End: 28-80-7445NtgwbaIwtcgz G Furlong DO Work Phone: [facility] - Family MedicineComment on above:Complex tear of medial meniscus of left knee, sequela Start: 03-28-2025 End: 59-40-9516IvgqoyAhphqx G Furlong DO Work Phone: [facility] - Family MedicineComment on above:Complex tear of medial meniscus of left knee, sequela Start: 03-24-2025 End: 79-47-2223Hkryjh-up encounterDennis G Furlong DO Work Phone: [facility] - Family MedicineComment on above:POCT Hemoglobin A1c, Tramadol and Metabolite, U, Drug Screen, UrineStart: 03-23-2025 End: 33-84-9964Dblvqywig encounterJrDanica Jim Veronica Florentin DO Work Phone: [facility] OrthopaedicsComment on above:surgery clearanceStart: 03-22-2025 End: 13-12-9324WhcmllRmkwlr G Furlong DO Work Phone: [facility] - Family MedicineStart: 03-21-2025 End: 69-18-1742GpgrejAsutwf G Furlong DO Work Phone: [facility] - Family MedicineComment on above:Complex tear of medial meniscus of left knee, sequela Start: 03-19-2025 End: 30-00-9817ntuqeowamqEjrsbr A SteinFacility:FTMCStart: 03-17-2025 End: 21-32-9075xvqtetxpwsRxshet TannaFacility:EU BellevueStart: 03-17-2025 End: 39-02-1018Whqhurj encounter procedureSofiya Villa [facility] start: 03-16-2025 End: 68-83-4488Faahtk outpatient visit 25 minutesRobert Giron DO Work Phone: [facility] - Family MedicineComment on above:Lumbosacral radiculopathy at L5 (Primary Dx); Osteoarthritis, unspecified osteoarthritis type, unspecified site; Diabetes mellitus without complication ([facility]); Chronic obstructive pulmonary disease, unspecified COPD type ([facility]); AnxietyStart: 03-16-2025 End: 84-36-0008oxtuzcbaziUHFPMOSt. Mary's Medical Center Ambulatory PPGStart: 03-15-2025 End: 78-77-3721WdcrgvUrrfce Pamela Giron DO Work Phone: [facility] Internal Medicine - Family MedicineComment on above:Complex tear of medial meniscus of left knee, sequela Start: 03-12-2025 End: 32-69-4022OtbgpaSbsepi Pamela Worthyng DO Work Phone: [facility] - Family MedicineStart: 03-10-2025 End: 74-35-5995Yanvhj outpatient new 30 minutesMaya Lynn EXPANSION JOINT BUILDER-GRAPHIC ART SALES REPRESENTATIVE Work Phone: [facility] General SurgeryComment on above: Incontinence of feces with fecal urgency (Primary Dx); Altered bowel habits; Polyp of colon, unspecified part of colon, unspecified typeStart: 03-10-2025 End: 32-97-8100Gaovwr OnlyNot In System Ref ProvProMedica Physicians General SurgeryStart: 03-09-2025 End: 68-35-9463Vkqigz flowsheetJr. Jim Veronica Lerma DO Work Phone: [facility] ORTHOPAEDICSStart: 03-09-2025 End: 23-93-6728Wdhimd flowsheetJr. Jim Martin Florentin DO Work Phone: noms FB ORTHOPAEDICSStart: 03-09-2025 End: 47-09-7412Occjvd outpatient visit 40 minutesJr. Jim Veronica Lerma DO Work Phone: [facility] OrthopaedicsComment on above:Arthritis of left knee (Primary Dx); Acute pain of left kneeStart: 03-09-2025 End: 28-68-8255tkbnvagkujOE., JIM Chan AvailableStart: 03-04-2025 End: 97-20-1210Tqbghi flowsheetMartin Arango DPM Work Phone: noms CI PODIATRYStart: 03-04-2025 End: 78-86-5442Zrgsom flowsheetNicarmani Arango DPM Work Phone: noms CI PODIATRYStart: 03-04-2025 End: 93-54-5127Vwxlkx outpatient visit 15 minutesMartin Arango DPM Work Phone: noms CI PODIATRYComment on above:Mild ankle sprain, right, initial encounter (Primary Dx); Diabetes 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 polyneuropathy, with long-term current use of insulin (HCC); Contracture of right ankleStart: 03-04-2025 End: 80-51-6056udfllairktTLWRZHVV A BROWNNot AvailableStart: 02-25-2025 End: 54-21-2679Sshlrl outpatient visit 25 minutesCarlos Sanchez MD Work Phone: noms SWS NEURComment on above:Intractable chronic migraine without aura and without status migrainosus (Primary Dx); Primary insomniaStart: 02-25-2025 End: 00-09-6969xeywkmihksENVOKVU W BAUERNot AvailableStart: 02-25-2025 End: 19-00-4330Hdraec Desmond Sanchez MD Work Phone: noms BM NEUROLOGYStart: 02-25-2025 End: 59-62-9955Nyktjr Desmond Sanchez MD Work Phone: noms BM NEUROLOGYStart: 02-24-2025 End: 34-81-7292Dncooh flowsheetShmuel Levine PTANOMS CI PTStart: 02-24-2025 End: 45-54-2428Rrswvt flowsheetShmuel Levine PTANOMS CI PTStart: 02-24-2025 End: 95-03-8302oogtueucalEutvbcq Lawrence PTANOMS CI PTComment on above:Mild ankle sprain, right, initial encounter (Primary Dx)Diabetes mellitus without complication ([facility])Start: 02-24-2025 End: 81-92-2954Gjbasw outpatient visit 25 minutesRonenmarcos aCrmencasey DO Work Phone: [facility] - Family MedicineComment on above:Chest wall pain (Primary Dx); Complex tear of medial meniscus of left knee, sequela; Polyp of colon, unspecified part of colon, unspecified type; Diabetes mellitus without complication ([facility])Start: 02-24-2025 End: 12-91-7988kicrbhxujhSSAMJRSt. Mary's Medical Center Ambulatory PPGStart: 02-22-2025 End: 61-99-6709sreiymjeezCdwonjkt Brink PTANOMS CI PTComment on above:Mild ankle sprain, right, initial encounter (Primary Dx)Start: 02-22-2025 End: 13-81-4574Mmbxjk flowsheetMarshall Brink PTANOMS CI PTStart: 02-22-2025 End: 37-00-2471Euewoa flowsheetMarshall Brink PTANOMS CI PTStart: 02-15-2025 End: 30-13-5348Kpnabl flowsheetMarshall Brink PTANOMS CI PTStart: 02-15-2025 End: 51-99-4689Fraexm flowsheetMarshall Brink PTANOMS CI PTStart: 02-15-2025 End: 99-16-5115esuizzppnrIwathveh Brink PTANOMS CI PTComment on above:Mild ankle sprain, right, initial encounter (Primary Dx)Start: 02-11-2025 End: 05-08-8344Pnnrik flowsheetSammantha Hammond PTNOMS CI PTStart: 02-11-2025 End: 64-91-8810Njiazf flowsheetSammantha Hammond PTNOMS CI PTStart: 02-11-2025 End: 29-55-9410tnxqyotrbkJlgjccanq Hammond PTNOMS CI PTComment on above:Mild ankle sprain, right, initial encounter (Primary Dx)Start: 02-08-2025 End: 75-43-9854Xpqajulah encounterMarradha Bailey PTANOMS CI PTComment on above: Cx PT todayStart: 02-06-2025 End: 77-89-3251FrvqpoUbjckh G Furlong DO Work Phone: [facility] - Family MedicineStart: 02-04-2025 End: 09-60-0478Ctdevm Brodie Arango DPM Work Phone: noms CI PODIATRYStart: 02-04-2025 End: 80-96-6977Spyzbf Brodie Arango DPM Work Phone: noms CI PODIATRYStart: 02-04-2025 End: 31-75-4531Rtklzl outpatient visit 15 minutesNicarmani Arango DPM Work Phone: noms CI PODIATRYComment on above:Mild ankle sprain, right, initial encounter (Primary Dx); Paronychia, toe, right; Diabetes 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 polyneuropathy, with long-term current use of insulin (HCC)Start: 02-04-2025 End: 09-96-5865bsnmrvnqhfOmdayclq Brink PTANOMS CI PTComment on above:Contusion of right shoulder, subsequent encounter (Primary Dx); Right shoulder pain, unspecified chronicityStart: 01-29-2025 End: 78-82-2742Rxsngcvtz encounterMarradha Bailey PTANOMS CI PTComment on above: Cx PT todayMorton neuroma, rightStart: 01-25-2025 End: 59-26-2288FldkkgHvdrgu G Furlong DO Work Phone: [facility] - Family MedicineComment on above:Downey neuroma, rightContusion of right shoulder, subsequent encounter (Primary Dx); Right shoulder pain, unspecified chronicityStart: 01-21-2025 End: 68-01-4920Dca Drop offSHERI JIMENES [facility] Start: 01-21-2025 End: 35-90-4714Urkmprj encounter procedureSHERI Kaminski YUDY [facility] start: 01-21-2025 End: 51-94-6519IzhnctBtlsvp Gullett CMAProMedica Physicians Internal Medicine - Family MedicineComment on above:AnxietyStart: 01-15-2025 End: 26-41-9067MtkzzbHrysbb G Furlong DO Work Phone: [facility] - Family MedicineStart: 01-14-2025 End: 66-02-8622Ibhqts outpatient visit 15 minutesMartin Arango DPM Work Phone: noms CI PODIATRYComment on above:Mild ankle sprain, right, initial encounter (Primary Dx); Paronychia, toe, right; Downey neuroma, rightStart: 01-14-2025 End: 19-47-0421ucjnmfnuywFUFBINPW A BROWNNot AvailableStart: 01-14-2025 End: 09-97-5121Fgdxgx flowsMalcom Arango DPM Work Phone: noms CI PODIATRYStart: 01-14-2025 End: 56-42-6832Jtkhmrrebecca Arango DPM Work Phone: noms CI PODIATRYStart: 01-07-2025 End: 57-34-4775aljhgueohrNBTBFDEF A BROWNNot AvailableStart: 01-05-2025 End: 63-77-8087ahnedggtfuLAWIKLMC E PERRYFacility:EU BellevueStart: 01-05-2025 End: 76-92-3884Bvkcpri encounter procedureJENNIFER E YUDY [facility] Renetta start: 01-02-2025 End: 72-70-5423Brewvceen encounterMartin Arango DPM Work Phone: noms CI PODIATRYStart: 01-02-2025 End: 23-98-2537rjiahgtriyVmcvhh AustinFacility:Centervilletart: 01-01-2025 End: 24-43-4297Tsxzfusrn encounterMartin Arango DPM Work Phone: noms CI PODIATRYStart: 12-29-2024 End: 08-03-7945Cnimiegmj encounterSammantha Hammond PTNOMS CI PTComment on above:PT Initial Eval; Call BackStart: 12-25-2024 End: 23-01-5667vlcwijmjdpPAIQBLSt. Mary's Medical Center Ambulatory PPGStart: 12-18-2024 End: 16-67-1196VbtqylLeyjtq G Furlong DO Work Phone: [facility] - Family MedicineComment on above:AnxietyStart: 12-17-2024 End: 63-54-0346Oshmin Brodie Arango DPM Work Phone: noms CI PODIATRYStart: 12-17-2024 End: 57-73-2120Asyzvm Brodie Arango DPM Work Phone: noms CI PODIATRYStart: 12-17-2024 End: 28-91-5095Ozejla outpatient visit 25 minutesMartin Arango DPM Work Phone: noMS CI PODIATRYComment on above:Downey neuroma, right (Primary Dx); Acquired deformity of right toe; Paronychia, toe, right; Diabetes 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 polyneuropathy, with long-term current use of insulin ([facility])Start: 12-17-2024 End: 90-86-8745mxpbokhpzxCAJNAASK A BROWNNot AvailableStart: 12-15-2024 End: 09-51-9384Tgvbve outpatient visit 25 minutesRobert Santiago Rosalineradha DO Work Phone: [facility] Internal Medicine - Family MedicineComment on above:Anxiety (Primary Dx); Diabetes mellitus without complication ([facility]); Enthesopathy of elbowStart: 12-15-2024 End: 91-45-5050rgoqxqtkhdGDSLGYCherry County Hospital Ambulatory PPGStart: 12-15-2024 End: 70-29-7161Ipzrsc outpatient visit 25 minutesReyes Borges PA Work Phone: [facility] - Pain Management ClinicComment on above:Cervical spondylosis without myelopathy (Primary Dx) Start: 12-15-2024 End: 23-77-6169xgtrfflujwFDDUKSW S JONYKing's Daughters [facility] HospitalStart: 12-15-2024 End: 38-05-6839vbznuyznriKFEBUAUT [facility] HospitalStart: 12-03-2024 End: 09-49-1519Ibaebp Brdoie Arango DPM Work Phone: noMS CI PODIATRYStart: 12-03-2024 End: 47-45-5257Ymsfkmaaron Arango DPM Work Phone: noMS CI PODIATRYStart: 12-03-2024 End: 15-54-9332Ubphpb outpatient visit 15 minutesMartin Arango DPM Work Phone: noMS CI PODIATRYComment on above:Downey neuroma, right (Primary Dx); Diabetes 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 polyneuropathy, with long-term current use of insulin (CMS/HCC); Acquired deformity of right toe; Paronychia, toe, rightStart: 12-03-2024 End: 05-58-0151rodtkptjfeWAPGDOIZ A BROWNNot AvailableStart: 11-19-2024 End: 48-18-7493Obrwwl flowsheetNicarmani Arango DPM Work Phone: noms CI PODIATRYStart: 11-19-2024 End: 48-85-1842Eyzqwc flowsheetNicarmani Arango DPM Work Phone: noms CI PODIATRYStart: 11-19-2024 End: 44-20-6365Ksxfkc outpatient visit 15 minutesNicarmani Arango DPM Work Phone: noms CI PODIATRYComment on above:Acquired deformity of right toe (Primary Dx); Diabetes 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 polyneuropathy, with long-term current use of insulin (CMS/HCC); Downey neuroma, rightStart: 11-19-2024 End: 46-10-6623yecmthljctOJCBPAAG A BROWNNot AvailableStart: 11-17-2024 End: 56-30-3339SrioksZmsycy G Rosalinecasey DO Work Phone: [facility] - Family MedicineStart: 11-13-2024 End: 55-63-8847Tudhudm encounter procedureRobert Rosalinecasey DO Work Phone: [facility]-Electrodiagnostics Work Phone: Start: 11-13-2024 End: 11-98-1165AablenVimbqck W Bauer MD Work Phone: noms [facility] NEURO 210Comment on above:Intractable chronic migraine without aura and without status migrainosus (CMS/HCC) (Primary Dx) Start: 11-11-2024 End: 37-49-3504Qhawxerebecca Sanchez MD Work Phone: noms NEUROLOGYStart: 11-11-2024 End: 75-03-8930Dojhym flowsheetCarlos Sanchez MD Work Phone: noms NEUROLOGYStart: 11-11-2024 End: 48-85-5123Laihng outpatient visit 25 minutesCarlos Sanchez MD Work Phone: noms SWS NEURComment on above:Intractable chronic migraine without aura and without status migrainosus (CMS/HCC) (Primary Dx) Start: 11-11-2024 End: 87-64-1850arbumpvuciMQMBQUI W BAUERNot AvailableStart: 11-09-2024 End: 07-16-5046Czjgfrtip encounterNicole Malinda [facility]Med[facility] Internal Medicine - Family MedicineStart: 11-05-2024 End: 44-63-5435tqqexqleunSYGXLEMemorial Hermann Katy Hospital HospitalStart: 08-12-4043hzftnogkbaGWPIIUTrinity Health System Twin City Medical Centertart: 10-26-2024 End: 91-82-5651verikcapvtCQRDMKCleveland Clinic South Pointe Hospitaltart: 10-26-2024 End: 83-87-2003Zhsbnw outpatient visit 25 minutesRobert Giron DO Work Phone: [facility] Internal Medicine - Family MedicineComment on above:Peripheral arterial disease (CMS-HCC) (Primary Dx); Anxiety; Medication monitoring encounter; Contusion of right hip, initial encounter; Candidal intertrigo; OverweightStart: 10-26-2024 End: 01-86-7123lxdxwhxiksLJPEGFSt. Mary's Medical Center Ambulatory PPGStart: 10-22-2024 End: 86-77-1838TknkxoBkwguv G Furlong DO Work Phone: [facility] Internal Medicine - Family MedicineComment on above:Type 2 diabetes mellitus with hyperglycemia, without long-term current use of insulin (CMS-HCC)Lumbar radiculopathy (Primary Dx); PHN (postherpetic neuralgia) (CMS/HCC); Diabetic peripheral neuropathy (CMS/HCC)Start: 10-22-2024 End: 22-60-6714Woaniidzv encounterJamalmackenzie Petty CARMINAProMedica Physicians Internal Medicine - Family MedicineComment on above:Med RefillStart: 10-16-2024 End: 09-09-8124HcwxnkFflynz G Furlong DO Work Phone: [facility] Medicine - Family MedicineStart: 10-16-2024 End: 43-03-5415YqzqctZpzidl Pamela Worthyng DO Work Phone: [facility] - [facility] MedicineStart: 10-12-2024 End: 41-26-5647xkxxcduqgrGltfklrroOhioHealth [facility] Work Phone: Start: 10-12-2024 End: 60-73-5902Yzvezua encounter procedureNovant Health [facility] Physician [facility] Work Phone: Start: 10-09-2024 End: 67-19-5740Vdiqlc Marymarcos Worthyng DO Work Phone: [facility] Internal Medicine - Family MedicineComment on above:Pain in left leg (Primary Dx)Start: 09-29-2024 End: 94-19-8802Snvexbagw Result EncounterGeneric External Data ProviderNOMS External Department UnsolicitedStart: 09-29-2024 End: 25-15-2678Mdvzwlxvd Result EncounterGeneric External Data ProviderNOMS External Department UnsolicitedStart: 89-27-1675huinshepdyUEDVOK [facility] Hospitaltart: 09-24-2024 End: 97-59-1683Udojoxfly encounterShmuel CASANOVA CI PTComment on above:Severe Migraine; FUStart: 09-23-2024 End: 39-67-2851Tnafmq Mary Worthyng DO Work Phone: [facility] Internal Medicine - Family MedicineComment on above:Diabetes mellitus without complication (CMS-HCC) (Primary Dx)Left knee pain, unspecified chronicity (Primary Dx); Arthritis of left knee; Chronic pain of left kneeStart: 09-22-2024 End: 85-67-9377mihkmkjdeaARYGRT SKIEUniversGrant Hospitaltart: 09-19-2024 End: 51-40-9079OwruidKmzunq Pamela Giron DO Work Phone: [facility] Medicine - Family MedicineComment on above:Type 2 diabetes mellitus with hyperglycemia, without long-term current use of insulin ([facility])Start: 09-18-2024 End: 03-84-7165ExrmwjXsrhmk Pamela Carmenradhacharli DO Work Phone: [facility] Medicine - Family MedicineStart: 09-17-2024 End: 50-31-0540wcfzbxagylWbivhosef Hammond PTNOMS CI PTComment on above:Left knee pain, unspecified chronicity (Primary Dx); Arthritis of left knee; Chronic pain of left kneeStart: 09-16-2024 End: 88-94-3866Xijojp flowsheetFelicia Veronica Vergara ADJUNCT PSYCHOLOGY INSTRUCTOR Work Phone: noms NEUROLOGYStart: 09-16-2024 End: 72-94-9399Jtblzs flowsheetFelicia C Windnagel ADJUNCT PSYCHOLOGY INSTRUCTOR Work Phone: noms BM NEUROLOGYStart: 09-16-2024 End: 00-88-8617Yzghmj outpatient visit 25 minutesFelicia Veronica Spearsgel ADJUNCT PSYCHOLOGY INSTRUCTOR Work Phone: NOMS SWS NEURComment on above:CELINE (obstructive sleep apnea) (Primary Dx); Chronic migraine without aura without status migrainosus, not intractable ([facility]); Cognitive decline; Lumbar radiculopathyStart: 09-16-2024 End: 16-70-5771ksdyiqhlcdEHQWSEY C GLENNYNAGELNot AvailableStart: 09-15-2024 End: 70-96-6158tdyxdmlpviTPCWLZ G ROSALINECASEYCorey Hospitaltart: 09-15-2024 End: 55-33-9265Bqufyh outpatient visit 25 minutesRobert Pamela Giron DO Work Phone: [facility] - Family MedicineComment on above:Anxiety (Primary Dx); Diabetes mellitus without complication [facility]); Essential hypertension; Mixed hyperlipidemia; Medication management; Chronic obstructive pulmonary disease, unspecified COPD type ([facility]); Abnormality of gait and mobility; Current smokerStart: 09-15-2024 End: 79-10-1768cfrfrpjqnrFDJSCE [facility] PPGStart: 09-15-2024 End: 66-51-3650Gezvccdkk encounterShmuel CASANOVA CI PTComment on above:CX PT 09/15Start: 09-10-2024 End: 78-23-9611Fdkuke Lauren Levine PTANOMS CI PTStart: 09-10-2024 End: 35-66-8010Ubzvqj Lauren Levine PTANOMS CI PTStart: 09-10-2024 End: 97-93-9897upyjechofjDgxdvcc Lawrence PTANO CI PTComment on above:Left knee pain, unspecified chronicity (Primary Dx)Start: 09-04-2024 End: 45-25-5571Dhvpliypg encounterRyannetrinidad CASANOVA CI PTComment on above: re: PT todayStart: 09-03-2024 End: 65-46-2170Hdqmruzqh encounterSammadottyphan Hammond PTNOMS CI PTComment on above:CX PT / RS for art: 09-01-2024 End: 34-31-8619Tckatl Lauren CASANOVA CI PTStart: 09-01-2024 End: 28-75-1006Xjospa Lauren Levine PTANOMS CI PTStart: 09-01-2024 End: 92-39-5313dwbfisgerrKddkxfcSharan Levine PTANO CI PTComment on above:Left knee pain, unspecified chronicity (Primary Dx)Start: 08-28-2024 End: 47-20-8007Stzwwo flowsheetSammantha Hammond PTNOMS CI PTStart: 08-28-2024 End: 01-64-9093Yatmbg flowsheetSammantha Hammond PTNOMS CI PTStart: 08-28-2024 End: 76-88-8347bgpnrwtcqgBaggppbmb Hammond PTNOMS CI PTComment on above:Left knee pain, unspecified chronicity (Primary Dx)Start: 08-26-2024 End: 53-34-5772rcmodhpdstJNNZ NONEFacility:FTMCStart: 08-26-2024 End: 73-26-4267Eiimbvi encounter procedureCady Alva [facility] Start: 08-21-2024 End: 38-04-8782Ilbkin ArielRobert Carmenradhacharli DO Work Phone: [facility] Medicine - Family MedicineComment on above:Diabetes mellitus without complication (CMS-HCC) (Primary Dx)Start: 08-19-2024 End: 38-63-1530tjvdqvikvqFIOIYA [facility] Centertart: 08-17-2024 End: 47-00-1350yyrzwmtnqdLSRAEJWVUMedicine Harrison Community Hospitaltart: 08-13-2024 End: 11-22-2685Xefmccl encounter procedureMijohn Davalos [facility] Start: 08-13-2024 End: 20-04-9185NzacuuZavqrv G Furradhacharli DO Work Phone: [facility] - [facility]tart: 08-10-2024 End: 07-57-8244Ibejha Desmond Sanchez MD Work Phone: noms NEUROLOGYStart: 08-10-2024 End: 11-98-7862Vqivci Desmond Sanchez MD Work Phone: noms NEUROLOGYStart: 08-10-2024 End: 67-58-7878Kcbbji outpatient visit 25 minutesCarlos Sanchez MD Work Phone: noms SWS NEURComment on above:Attention deficit hyperactivity disorder (ADHD), predominantly inattentive type (CMS/HCC) (Primary Dx); Intractable chronic migraine without aura and without status migrainosus (CMS/HCC)Start: 08-10-2024 End: 11-14-4305Znrzil OnlyJena Vaz NP Work Phone: noms [facility] NEURO 210Comment on above:Attention deficit hyperactivity disorder (ADHD), predominantly inattentive type (CMS/HCC) (Primary Dx); Fibromyalgia; AnxietyStart: 08-04-2024 End: 37-86-4814Xslhmnngw encounterCarlos Sanchez MD Work Phone: noms [facility] NEURO 210Start: 08-03-2024 End: 06-56-4893wndlcvtrlyUZVHEP SKIEUniversity MidCoast Medical Center – Centraltart: 07-29-2024 End: 19-38-1583Paaxbg flowsheetCorey Wilfredo DO Work Phone: noms BCP OBStart: 07-29-2024 End: 44-53-5230Hxonuw flowsheetCorey Wilfredo DO Work Phone: noms BCP OBStart: 07-29-2024 End: 72-49-0148Apbptiggb Result EncounterCorey Wilfredo DO Work Phone: noms External Department UnsolicitedStart: 07-29-2024 End: 20-81-4946Epeyasn encounter procedureCorey Wilfredo DO Work Phone: noms HealthcareStart: 07-29-2024 End: 61-75-6011Ydlsjvds preventive med est patient 40-64yrsCorey Wilfredo DO Work Phone: noms [facility] OBComment on above:Well woman exam with routine gynecological exam; H/O: hysterectomy; Osteoporosis, post-menopausal (CMS/HCC)Start: 07-29-2024 End: 18-62-0980nqkagoqcnhWAGIM FAZIONot AvailableStart: 07-27-2024 End: 80-51-0687hcyxwmjthuUXOEIJ N MUSTAFAProMedica Barberton Citizens Hospitaltart: 07-07-2024 End: 25-24-8634Hpqqrbpkj department patient visitROBERT Santiago FURLONGProMedica Parish HospitalStart: 06-28-2024 End: 61-05-6331Kxcinvwgq department patient visitROBERT Santiago ROSALINELONGProMedica Parish HospitalStart: 06-18-2024 End: 94-80-2652Myarbo outpatient visit 15 minutesMartin Arango DPM Work Phone: noms CI PODIATRYComment on above:Acquired deformity of right toe (Primary Dx); Diabetes 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 polyneuropathy, with long-term current use of insulin ([facility])Start: 06-18-2024 End: 74-76-0961rjdiepzfbjGYJUWKOA A BROWNNot AvailableStart: 06-18-2024 End: 63-30-5841Bhdpse flowsMalcom Arango DPM Work Phone: noms CI PODIATRYStart: 06-18-2024 End: 67-54-6724Pgwvft Brodie Arango DPM Work Phone: noms CI PODIATRYStart: 58-87-3304cdvefrlinsUCFWSYLutheran Hospitaltart: 06-15-2024 End: 61-76-0928Bfdupqsfd encounterMichael Rosa Mace DO Work Phone: noms NB ORTHOComment on above:L knee painStart: 06-15-2024 End: 33-32-8690jlqfhponzdSIVMQG N MUSTAFAProMedica Parish HospitalStart: 06-11-2024 End: 06-62-0284ckztdgdzlxCRLTF N XIAProMedica Parish HospitalStart: 06-09-2024 End: 79-17-4018Dfbyhwmpi encounterJames Queenie Alcantara DO Work Phone: NOKC SWS ORTHOComment on above:painStart: 06-05-2024 End: 58-15-6857quyplmgdgtUJZHFVW E HOGANProMedica Parish HospitalStart: 06-05-2024 End: 99-70-2516czjuyhngkhLDWMSTO E HOGANProMedica Parish HospitalStart: 05-28-2024 End: 78-79-1514Hjmtbpnak Soumya Huynh [facility] Ankle SpecialistsStart: 05-20-2024 End: 00-69-7703syeijqruktSIPAR Hnanah VERHOFFProMedica Parish HospitalStart: 05-18-2024 End: 26-99-9102jwbzmslwblGGFJFD N MUSTAFAProMedica Mathews HospitalStart: 05-14-2024 End: 21-81-0576Jqgmvi Brodie Arango DPM Work Phone: noms CI PODIATRYStart: 05-14-2024 End: 64-70-5722Xbozzk Brodie Arango DPM Work Phone: noms CI PODIATRYStart: 05-14-2024 End: 13-96-8653Kdoujs outpatient visit 15 minutesNicarmani Arango DPM Work Phone: noms CI PODIATRYComment on above:Capsulitis of metatarsophalangeal (MTP) joint of right foot (Primary Dx); Paronychia, toe, right; Paronychia of toe of left foot; Diabetes 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 polyneuropathy, with long-term current use of insulin ([facility])Start: 05-14-2024 End: 57-68-4121giwxpqgrpxODFIOAWB A BROWNNot AvailableStart: 05-11-2024 End: 60-00-3161Zavabbzcj encounterCarlos Sanchez MD Work Phone: noms SWS NEURStart: 05-05-2024 End: 62-09-3596Olyoynplq encounterPastora Alcantara DO Work Phone: noms FB ORTHOPAEDICSStart: 05-04-2024 End: 38-27-1775kraczjdambXKGIBA G FURLONGProMedica Parish HospitalStart: 04-27-2024 End: 01-91-6787iqlmqqpsyfWSKYMQG W BAUERNot AvailableStart: 04-27-2024 End: 43-39-7043Boowzgaaron Sanchez MD Work Phone: noms BM NEUROLOGYStart: 04-27-2024 End: 28-98-9150Hkupzi Desmond Sanchez MD Work Phone: noms BM NEUROLOGYStart: 04-27-2024 End: 82-65-5130Kfamuq outpatient visit 25 minutesCarlos Sanchez MD Work Phone: noms SWS NEURComment on above:Nausea and vomiting, unspecified vomiting type (Primary Dx); Intractable chronic migraine without aura and without status migrainosus ([facility]/HCC); Diabetic peripheral neuropathy ([facility])Start: 04-23-2024 End: 50-66-1353Jppshp Brodie Arango DPM Work Phone: noms CI PODIATRYStart: 04-23-2024 End: 95-58-0051Xyhbze Brodie Arango DPM Work Phone: noms CI PODIATRYStart: 04-23-2024 End: 40-68-5082inrceihirwCWUEESPN A BROWNNot AvailableStart: 04-23-2024 End: 43-24-2006Kockms outpatient visit 15 minutesMartin Arango DPM Work Phone: noms CI PODIATRYComment on above:Capsulitis of metatarsophalangeal (MTP) joint of right foot (Primary Dx); Paronychia, toe, right; Paronychia of toe of left foot; Toe pain, left; Toe pain, right; Diabetes 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 polyneuropathy, with long-term current use of insulin ([facility])Start: 04-23-2024 End: 50-39-7095pwbgvlgiprSZUDWCYS A BROWNNot AvailableStart: 04-21-2024 End: 72-89-0685Elenig outpatient visit 15 minutesPastora Alcantara DO Work Phone: noms CI ORTHOPAEDICSComment on above:Chronic pain of left knee; Primary osteoarthritis of left knee; Complex tear of medial meniscus of left knee as current injury, initial encounterStart: 04-21-2024 End: 13-71-9904dmzprzzygnXUWHPRashaun Linn AvailableStart: 04-15-2024 End: 27-58-6035Hoeems Danokraigemily Coronado PT Work Phone: noms CI PTStart: 04-15-2024 End: 62-99-6182Dmczlt flowsFidenciokraigemily Coronado PT Work Phone: noms CI PTStart: 04-15-2024 End: 08-16-7664yxqwtbiecsMjggte T Blackston PT Work Phone: noms CI PTComment on above:Arthritis of left knee (Primary Dx); Chronic pain of left kneeStart: 04-14-2024 End: 22-39-0084Ojvojb Mario Alcantara DO Work Phone: noms CI ORTHOPAEDICSStart: 04-14-2024 End: 72-21-9560Nszaxo Mario Alcantara DO Work Phone: noms CI ORTHOPAEDICSStart: 04-14-2024 End: 74-75-9086Pdgovu outpatient visit 15 minutesPastora Alcantara DO Work Phone: noms CI ORTHOPAEDICSComment on above:Left wrist pain (Primary Dx); Left knee pain, unspecified chronicity; Ulnar neuropathy at elbow of left upper extremityStart: 04-14-2024 End: 56-84-9513frjiangfydSKLOQ A HUDDLESTONNot AvailableStart: 04-13-2024 End: 25-08-2864Gqdyou flowsheetMaria B Apling ADJUNCT PSYCHOLOGY INSTRUCTOR Work Phone: noms CI ORTHOPAEDICSStart: 04-13-2024 End: 51-07-2930Ihtrmk flowsheetMaria B Apling ADJUNCT PSYCHOLOGY INSTRUCTOR Work Phone: noms CI ORTHOPAEDICSStart: 04-13-2024 End: 30-78-8235Oqbein outpatient visit 15 minutesMaria B Apling ADJUNCT PSYCHOLOGY INSTRUCTOR Work Phone: noms CI ORTHOPAEDICSComment on above:Left elbow pain (Primary Dx); Left wrist pain; Ulnar neuropathy at elbow of left upper extremity; Carpal tunnel syndrome of left wristStart: 04-13-2024 End: 31-41-1509vudvogwqwpHMWXI B APLINGNot AvailableStart: 04-09-2024 End: 04-06-3108Xzlkyg outpatient visit 15 minutesMartin Arango DPM Work Phone: noms CI PODIATRYComment on above:Toe pain, left (Primary Dx); Toe pain, right; Capsulitis of metatarsophalangeal (MTP) joint of right foot; Paronychia, toe, right; Paronychia of toe of left footStart: 04-09-2024 End: 21-44-9794bqusehbetmIGOGTWBH A BROWNNot AvailableStart: 04-08-2024 End: 48-46-2293Kbpzkt flowsheetMaria B Apling ADJUNCT PSYCHOLOGY INSTRUCTOR Work Phone: noms CI ORTHOPAEDICSStart: 04-08-2024 End: 35-72-1859Bufmii flowsheetMaria B Apling ADJUNCT PSYCHOLOGY INSTRUCTOR Work Phone: noms CI ORTHOPAEDICSStart: 04-08-2024 End: 10-96-4413Favojl outpatient new 30 minutesMaria B Apling ADJUNCT PSYCHOLOGY INSTRUCTOR Work Phone: noms CI ORTHOPAEDICSComment on above:Left knee pain, unspecified chronicity (Primary Dx); Arthritis of left kneeStart: 04-08-2024 End: 69-34-9039kgqkdojoeqALUAL B APLINGNot AvailableStart: 04-02-2024 End: 46-48-9030vrgpufohfwKELUSHRY A BROWNNot AvailableStart: 03-31-2024 End: 53-44-0339fmznenxqstEE Robert Furlong Work Phone: [facility] Work Phone: Start: 03-31-2024 End: 41-90-4627Moqnhsf encounter procedureDO Robert Furlong Work Phone: [facility] Work Phone: Start: 03-27-2024 End: 45-97-1772cthjyvjygzJISGBE B [facility] HospitalStart: 03-20-2024 End: 95-98-8625gluvurroftODEHDEOR RICCARDOTONNot AvailableStart: 03-17-2024 End: 39-53-1356xtbvvrqhcaPJVAODGY IVONNENot AvailableStart: 03-05-2024 End: 36-37-6207ijqiidrkhzXKUOHR FURLONGFacility:FTMCStart: 03-05-2024 End: 84-21-8209Husy ManagementAndrew Eid [facility] Start: 81-11-0604Pgjcaoynn for other preprocedural examinationMATTW [facility] HospitalStart: 02-26-2024 End: 82-08-7544vojhjjukmlHOUTFU B [facility] HospitalStart: 01-31-2024 End: 96-33-0109Irimfctdt department patient visitJESSE Queenie Golisano [facility] HospitalStart: 01-30-2024 End: 76-34-0924Tszicic encounter procedureThomas Queenie Carmen [facility] Start: 01-23-2024 End: 28-72-1925adzfaanayaAGMKIP L [facility] HospitalStart: 01-20-2024 End: 06-53-3061ruowbrxbsoREZLCI L [facility] HospitalStart: 01-15-2024 End: 10-55-1953Qtza [facility] Alva [facility] Start: 01-01-2024 End: 26-63-8504Jeqq [facility] Ludia [facility] Start: 12-31-2023 End: 75-36-2629Aryigjs encounter procedureSHERI JIMENES [facility] start: 12-11-2023 End: 18-03-3147Gntn ManagementSrikanthconrad Eid [facility] Start: 11-06-2023 End: 32-38-9386Fqkk ManagementHoldenchapin Artie [facility] Start: 74-24-3757Trtospawf encounterCarlos Sanchez MD Work Phone: noms SWS NEURStart: 09-26-2023 End: 06-60-1488Tuaxiy outpatient visit 25 minutesNicarmani Arango DPM Work Phone: noms CI PODIATRYComment on above:Hav (hallux abducto valgus), right (Primary Dx); Plantar fasciitis; Diabetes 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 polyneuropathy, with long-term current use of insulin (CMS/HCC); Contracture of right ankle; Bone spur of right footStart: 81-06-4076AebtvgHrttjsm W Bauer MD Work Phone: noms [facility] NEURO 210Comment on above:Chronic bilateral low back pain with bilateral sciatica; Diabetic peripheral neuropathy (CMS/HCC); Lumbar radiculopathyStart: 09-19-2023 End: 38-91-8916zhmefeazcvVqapp Yael Other [facility] Other Start: 12-67-4226Hhnpiqslq encounterHeidi GastFPG Pulmonary DiseaseStart: 09-17-2023 End: 59-63-1268Dpplqzm encounter procedureSHERI Kaminski YUDY [facility] start: 08-27-2023 End: 14-79-7498kvcvuodfxmGfvbc Yael Other [facility] [employer] Other Start: 89-23-3159Iomwte outpatient visit 25 minutes Valarie GastFPG Pulmonary DiseaseStart: 07-25-2023 End: 88-19-5671Mhbhrwq encounter procedureElliott SOLIS [facility] Start: 07-05-2023 End: 36-48-7456Bwfhhzv encounter procedureCady Amato FIFI [facility] Start: 06-24-2023 End: 96-91-7804hmlegoojteGLXXSHRSamaritan Hospitaltart: 06-14-2023 End: 89-03-6312Xlksvqr encounter procedureCady Amato FIFI [facility] Start: 05-22-2023 End: 32-55-2076Wcwipyv encounter procedureInessa Grajeda [phone]-TxesdMer[facility] Start: 05-20-2023 End: 36-00-9079Efxsdsg encounter procedureCady Lima CALIX [facility] Start: 04-04-2023 End: 53-36-5941ekezuqsdzoZdssv Yael Other [facility] [employer] Other Start: 03-11-1859Muuornami encounterHeidi GastFPG Pulmonary DiseaseStart: 04-03-2023 End: 54-81-8409jvzkzzpvpjZC Robert Giron Work Phone: [facility] Work Phone: Start: 04-03-2023 End: 97-26-9193Qylejxd encounter procedureDO Robert Giron Work Phone: [facility] Work Phone: Start: 02-26-2023 End: 28-48-7874adoefokintJuqzx Yael Other [facility] [employer] Other Start: 55-19-3733Ifohwo outpatient visit 25 minutes Valarie GastFPG Pulmonary DiseaseStart: 01-17-2023 End: 87-72-6756Goalaxr encounter procedureMaher FITCH [facility] Start: 12-22-2022 End: 14-78-5481sbtbacvxrySF DOCTOR MISCFacility:H7Dyvlv: 12-21-2022 End: 15-32-9602qasssrlbsxNU DOCTOR MISCFacility:U9Jrdvc: 11-29-2022 End: 14-03-1582acjykhtfbgHQ ROBERT Santiago FURLONGFacility:D5Mycag: 11-26-2022 End: 01-20-5191vkdsnpqxitIP ROBERT Santiago FURLONGFacility:G9Uxpgl: 11-21-2022 End: 68-67-9308Abjuckzov to same day surgery centerMartin Arango [facility] Start: 10-30-2022 End: 62-18-0931Bkouuef encounter procedureElliott Solis [facility] Start: 10-29-2022 End: 06-17-1979Loohtow encounter Marry Grajeda 581-8280Nddpic-KwogmMercy Health [facility] Start: 10-20-2022 End: 47-30-9141Cwlepepms department patient Darrell Landry [facility] Start: 10-12-2022 End: 93-88-8595Foxfibeua department patient visitJairolara Landry [facility] Start: 10-02-2022 End: 73-49-4377Vrnbogr encounter procedureInessa Grajeda [phone]-WyqamMercy Health [facility] Start: 09-14-2022 End: 37-81-8851Rjm-admission assessmentMa SALAM [facility] Start: 09-10-2022 End: 96-54-1521fcizlpmdbgOF DAVID WILFREDO .Facility:N5Bamqk: 09-06-2022 End: 23-26-1262Zchirxz encounter procedureMaher SALAM [facility] Start: 09-04-2022 End: 62-91-5724rhzlbhssmyQhyzh Yael Other [place] [employer] Other Start: 51-01-4478Kkhxtppgh encounterHeidi GastFPG Pulmonary DiseaseStart: 26-48-8233uxtafdacumLJNDB CALLISONFacility:F4Emmvd: 08-06-2022 End: 08-93-1795fakylauqgnEZ DAVID WILFREDO .Facility:B7Tbxkw: 07-05-2022 End: 12-45-6122ijhniqyndiMnyme Yael Other [place] [employer] Other Start: 32-36-9080Rhggwh outpatient visit 25 minutes Valarie GastFPG Pulmonary DiseaseStart: 07-04-2022 End: 47-05-1914gocorrwyqlUWZYJ GASTFacility:N3Ifkhy: 07-03-2022 End: 02-17-0287axlopspgumHO SOLO CHA .Facility:C3Kwkwr: 06-26-2022 End: 45-22-8350PonwqysepLaket SALAM [facility] Start: 06-08-2022 End: 20-25-4352voutoyfkqzSB DOCTOR MISCFacility:E5Xhtmm: 05-15-2022 End: 56-98-0678Ynvbshz encounter procedureCady CALIX [facility] Start: 05-09-2022 End: 39-14-8969HlxbebhleRvloo SALAM [facility] Start: 05-09-2022 End: 05-63-6907Uik-admission assessmentWiher CURRY [facility] Start: 04-30-2022 End: 00-85-1305zjiuavyjjrQP ROBERT Santiago FURLONGFacility:X1Huium: 04-09-2022 End: 81-21-8790Auy-admission assessmentDonaldo Oneil LILI [facility] Start: 04-06-2022 End: 22-28-2808vnabhthlgxSKOUK CALLISONFacility:F1Jpgmt: 04-01-2022 End: 85-63-3350hrxjzzlxlhWXTPKF RODRIGUEZ .Facility:X2Vwxeq: 03-28-2022 End: 29-96-0290bffbhklsclJG DOCTOR MISCFacility:M8Ouohz: 03-20-2022 End: 48-67-3752Dptlycd encounter Emily Solis [facility] Start: 03-13-2022 End: 49-15-2396nrccdxtragTZHDCM RODRIGUEZ .Facility:X5Tbydx: 03-06-2022 End: 32-13-2002Jms-admission assessmentElliott Carmina Solis [facility] Start: 03-06-2022 End: 70-12-8240Safgnan encounter procedureCady Lima CALIX [facility] Start: 02-08-2022 End: 39-56-8665YanjenuplZyptl SALAM [facility] Start: 02-08-2022 End: 98-30-2039Vdk-admission assessmentMaher SALAM [facility] Start: 02-01-2022 End: 14-99-5061Kxcaiic encounter procedureMaher SALAM [facility] Start: 01-11-2022 End: 11-18-7595XhenhhibhZfmti SALAM [facility] Start: 01-11-2022 End: 89-35-8782Fscokdu encounter procedureMaher SALAM [phone]-ZctuzMercy Health [facility] Hospital [facility] Start: 12-20-2021 End: 85-46-5620AhweenbpzYohmg SALAM [facility] Start: 12-11-2021 End: 38-08-4984Glecurf encounter procedurePadale PEARSON [facility] start: 11-21-2021 End: 45-96-6382Rxblivv encounter procedureLucianovivian Jerome Nicci [facility] Start: 10-12-2021 End: 41-72-4356JoazawkhxXhsbwtkf A Brown [facility] Start: 04-19-2021 End: 70-94-9238Crklukepra hospital visit by physicianJoann Angela Work Phone: RadiologyComment on above:Pain [R52]Right elbow pain [M25.521] Procedures DateProcedureProcedure DetailPerforming ClinicianStart: 61-13-2779Cdmsr depression screening assessmentDennis Furlong DO Work Phone: Start: 19-15-4839WmygavlfvcDdsgizm PEARSON Start: 78-07-8480GT of lungsDenmarcos Furlong DO Work Phone: Start: 23-23-9034Njpa tst prsmv instrmnt chem analyzers pr dateDenmarcos Santiago Furlong DO Work Phone: Start: 23-70-8551Worxuychbf glycosylated t1rOwzgnd Pamela Furlong DO Work Phone: Start: 40-47-3444Athxg depression screening assessment Robert Furlong DO Work Phone: Start: 02-51-0034Qqwuod-up visitFollow-upJESSROSELYN LYNNStart: 73-10-7834Govlx depression screening assessmentDennis Furlong DO Work Phone: Start: 49-58-7762Ejwwh ankle complete minimum 3 views Martin Arango DPM Work Phone: Start: 69-97-1479Ovwdv depression screening assessment Robert Furlong DO Work Phone: Start: 28-89-5215Nykmt depression screening assessment Reyes COLES Work Phone: Start: 52-12-1515Kfckqdlzasbs [Mass/volume] in Urine by Test stripRobert Giron DO Work Phone: Start: 05-92-5874Duijs depression screening assessment Robert Giron DO Work Phone: Start: 28-77-7767TK TOMOSYNTHESIS SCREENING BIGeneric External Data ProviderStart: 72-71-1777NwmmqvnxjgbJdpxphy ProviderStart: 83-39-2837Upnqtusvruwnm of median nerveAmanda Ludia start: 79-52-9635Vuegm carpal complex ligament (body structure)Cady Ludia start: 49-56-7657XLL,APTIMA HPV,AGE GDLNCorey Wilfredo DO Work Phone: Start: 56-91-6718Rrzjfhqayis observation [Identifier] in Cervix by Cyto Mitzi Hammond PTStart: 69-49-4082Prkrfw citrullinated peptide antibodyMATTMARCEL BORGESComment on above:Result Comment: Interpretation-------- <3 Negative >=3 Positive Performed By: #### [id number], [facility], 1988-5, 3016-3, 01485-4, 97189-0, 82098-6 ####[facility] ([id number])[address] [facility], [address] [place] [address] [id number]: 38-27-8160Iygfm depression screening assessmentRobert Giron DO Work Phone: Start: 12-90-2871Lmswhqt of decompression of median nerveHistory of carpal tunnel surgeryCj Zepeda NP Work Phone: Start: 69-82-6546KA of lungsDO Robert Furlong Work Phone: Start: 62-52-7030Lbxzmmwi injection of lumbar spine using fluoroscopic guidanceCady Alva comment on above:L4-L5 no relief, made worseStart: 43-56-6685JapfxtvzlumLtbwo Apling ADJUNCT PSYCHOLOGY INSTRUCTOR Work Phone: Start: 58-53-1842EK of lungsDO Robert Furlong Work Phone: Start: 62-40-9964QvjqpuuartsMslxqv Rosalinelong DO Work Phone: Start: 79-42-3781NDOOPKDE PATHOLOGYNot In System Ref ProvStart: 59-85-2699VvqcxmaprccWokib Apling ADJUNCT PSYCHOLOGY INSTRUCTOR Work Phone: Start: 06-34-2130VvbxyuaivydHdwvb SALAM Start: 69-24-9723Ncfmor toe (disorder)Martin Arango Start: 40-85-8292Bjrtsgravn bone structure (body structure)Martin Arango Start: 66-65-4262Uwusgxdxyuhm [Mass/volume] in Urine by Test stripDennis Deaconng DO Work Phone: Start: 26-82-5694BdzounqtlrloenjcagfwbrjuguOlpnq SALAM Comment on above:esophageal dilation, small gastric bezoarStart: 81-23-1260Gtchvpxs tendon (body structure)Inessa Grajeda Comment on above:right peroneal tendon repair with synovectomyStart: 52-34-7591PescxibacmkjcmwaegwfgojgvhBxxg Steinmetz Comment on above:dilationStart: 53-56-6699Wjydlzaqbj studiesBevivian Grajeda Start: 04-19-2021 End: 70-29-3229Enmcq shoulder complete minimum 2 viewsAwaisard Oneil Farrell DO Work Phone: Start: 64-19-5615FluehzrdgpqYc 1 Work Phone: Start: 39-99-0802HaogbijobvpAqnl Steinmetz Start: 40-48-7617Grzccjmrsputbdn of left heartInessa Grajeda Comment on above:diagnosticStart: 14-02-7850Bqqacxlh of Downey's neuroma of peripheral nerveBevivian Grajeda Comment on above:EXCISION OF NEUROMA LEFT FOOTStart: 72-79-3520Urpzckc of toenailBevivian Grajeda Comment on above:RIGHT GREAT AND FIFTH DIGIT PERMANENT NAIL AVULSIONStart: 63-66-5730Uyuhxqfyytrfn of tarsal tunnelBevivian Grajeda Comment on above:leftStart: 18-73-9000Umqax tarsal tunnel releaseInessa Grajeda Start: 91-81-1860Rsqx instep plantar fasciotomy with division of soft tissue & fascia & muscle.Inessa Grajeda Start: 07-04-8169pcnhp instep plantar fasciotomy with division of muscle and fasciaInessa Grajeda AppendectomyBevivian Grajeda Arthroscopy of kneeInessa Grajeda Breast surgery (qualifier value)Inessa Grajeda Comment on above:x 2 - removal of milk ducts CholecystectomyBevivian Grajeda ColonoscopyBevivian Grajeda ColonoscopyMaher SALAM CystopexyBeth Nicci Decompression of median nerveBeth Nicci Comment on above:x 2Decompression of ulnar nerveBeth Nicci Comment on above:x 2EsophagogastroduodenoscopyBeth Nicci EsophagogastroduodenoscopyMaher SALAM Comment on above:Antral erosionsExcision of ganglion cystBeth Nicci Extracorporeal shockwave lithotripsy of calculus of kidneyBeth Nicci H/O: hysterectomyH/O: hysterectomyCorey Wilfredo DO Work Phone: History of decompression of median nerveHistory of carpal tunnel surgeryDO Robert Giron Work Phone: Comment on above:1992HysterectomyInessa Grajeda ingrown toenail removal 10Maher SALAM Comment on above:a1lfytzfr toenail removal 11Maher SAL Comment on above:b3uplfdhl toenail removal 12Amanda Willernie comment on above:z8gvejeje toenail removal 9Beth Nicci Comment on above:v7Xydqksyc of fallopian tubeBeth Nicci LithotripsyInessa Grajeda Morton's metatarsalgia (disorder)Inessa Grajeda Comment on above:x 6salpingectomy with unilateral oophorectomyInessa Grajeda Sinus (morphologic abnormality)Inesas Grajeda Comment on above:x 2Structure of tarsal canal (body structure)Inessa Grajeda Comment on above:x 2Ulnar nerve at elbow (body structure)Martin Arango Plan of Treatment DateCare ActivityDetailAuthorStart: 28-40-9744Acmdpalvo for malignant neoplasm of colonColonoscopyProCincinnati Shriners Hospital SystemStart: 44-66-4298Lfzftcdyo for malignant neoplasm of colonNOMS HealthcareStart: 27-07-8542Stouqkyrv for malignant neoplasm of cervixNOMS HealthcareStart: 15-13-8063Mewvm BMI Screening Adult BMI ScreeningPremier Health [facility] [employer] [facility] SystemStart: 18-93-1127Stykhwzode Screening Depression ScreeningBrecksville VA [facility] SystemStart: 55-81-7833Zqgkagf Screening Tobacco ScreeningBrecksville VA / [facility] SystemStart: 18-74-5642Psfssd Use: CardiovascularStatin Use: CardiovascularCorey Hospitalca Health SystemStart: 04-20-2026 Statin Use: DiabeticStatin Use: DiabeticPremier Health [facility] [employer] SystemStart: 03-16-2026 Adult BMI ScreeningAdult BMI ScreeningCorey HospitalRecochem SystemStart: 03-16-2026 Depression ScreeningDepression ScreeningCorey HospitalRecochem SystemStart: 03-16-2026 Tobacco ScreeningTobacco ScreeningBrecksville VA [facility] SystemStart: 61-64-3597Dtvbp BMI ScreeningAdult BMI ScreeningBrecksville VA [facility] SystemStart: 51-20-3661Cnhsrlc ScreeningTobacco ScreeningCorey Hospitalca [facility] SystemStart: 03-54-8291Ukjsf BMI ScreeningAdult BMI ScreeningBrecksville VA / [facility] SystemStart: 98-03-4280Ppuojnrasm ScreeningDepression ScreeningCorey HospitalRecochem SystemStart: 95-87-0241Ijxseiz ScreeningTobacco ScreeningCorey Hospitalca [facility] SystemStart: 14-82-9815Dgqxxw Use: CardiovascularStatin Use: CardiovascularPremier Health [facility] [employer] SystemStart: 01-15-2026 Statin Use: DiabeticStatin Use: DiabeticCorey HospitalRecochem SystemStart: 12-25-2025 Adult BMI ScreeningAdult BMI ScreeningCorey Hospitalca [facility] SystemStart: 12-25-2025 Depression ScreeningDepression ScreeningProCincinnati [facility] SystemStart: 12-25-2025 Tobacco ScreeningTobacco ScreeningProCincinnati [facility]rin[facility] SystemStart: 71-60-5350Ysqxc BMI ScreeningAdult BMI ScreeningProCincinnati [facility] SystemStart: 12-15-2025 Depression ScreeningDepression ScreeningProCincinnati [facility] SystemStart: 12-15-2025 Tobacco ScreeningTobacco ScreeningProCincinnati [facility] SystemStart: 73-33-5941Zpgkr screening for proteinUrine MicroalbuminProCincinnati Shriners Hospital SystemStart: 10-26-2025 Adult BMI ScreeningAdult BMI ScreeningProCincinnati [facility] SystemStart: 10-26-2025 Depression ScreeningDepression ScreeningProCincinnati [facility] SystemStart: 10-26-2025 Tobacco ScreeningTobacco ScreeningBrecksville VA [facility] SystemStart: 09-29-2025 Screening for malignant neoplasm of breastMaogramNOAZ HealthcareStart: 42-30-9830Kvvsl BMI ScreeningAdult BMI ScreeningProCincinnati [facility] Hospital SystemStart: 59-56-2101Pstlrca ScreeningTobacco ScreeningBrecksville VA [facility] SystemStart: 57-52-2292Iythari ScreeningTobacco ScreeningBrecksville VA / [facility] SystemStart: 58-22-5156Qdywy BMI ScreeningAdult BMI ScreeningBrecksville VA / [facility] SystemStart: 06-21-2025 End: 58-69-8057Uyswzmy encounter txtnzngio45/03/2025 2:40 PM EST Office Visit [facility] [address] [facility] [address] [place] [address] Carlos Sanchez MD [address] [place] [address] [facility] NeurologyStart: 06-17-2025 End: 40-83-6508Ikjyqgq encounter zjguuodca64/30/2025 1:30 PM EDT Office Visit [facility] [address] [place] [address] Robert iGron, [address], [place] [address] [facility] MedicineStart: 06-10-2025 End: 22-68-4238Fyqkavu encounter procedureNOMS SWS NEURStart: 05-20-2025 End: 36-15-2777Bqxzfii encounter ozbfnguyn73/02/2025 1:30 PM EDT Office Visit [facility] [address] [place] [address] Robert Giron, DO [address], [place] [address] [facility] MedicineStart: 05-20-2025 End: 26-38-7608Nrowukh encounter bzurwpkfi75/02/2025 10:45 AM EDT Office Visit [facility] [address] [place] [id number] Reyes Borges, SHARYN [address] [place], [place] [id number] [facility] - Pain Management ClinicStart: 99-14-4875Ninavjppmf Screening Depression ScreeningBrecksville VA / Crille Hospital SystemStart: 20-06-1881Qpqjmiimk vaccinationProCincinnati Shriners Hospital SystemStart: 03-16-2025 End: 75-58-9743Bddjldx encounter bjbckqvoo89/29/2025 2:00 PM EDT [facility] Medicine [address] [place] [address] Robert Giron, DO [address], [place] [address] [facility]icians Internal Medicine - [facility] MedicineStart: 03-10-2025 End: 89-16-2913Jbqxhyl encounter iahtfywjm48/23/2025 9:30 AM EDT Office Visit [facility] General [facility] [address], [id number] Shane Maya A, EXPANSION JOINT BUILDER-GRAPHIC ART SALES REPRESENTATIVE [address], [place] [phone] Polyp of colon, unspecified part of colon, unspecified typeProMedica Physicians General SurgeryComment on above: Polyp of colon, unspecified part of colon, unspecified typeStart: 03-09-2025 End: 25-99-9388Zwdjrwo encounter procedureNOMS FB ORTHOPAEDICSComment on above: ArrivedStart: 03-04-2025 End: 63-11-5985Kiygvir encounter procedureNOMS CI PODIATRYComment on above:Mild ankle sprain, right, initial encounter (Primary Dx); Paronychia, toe, right; Diabetes 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 polyneuropathy, with long-term current use of insulin (HCC)Start: 02-25-2025 End: 75-99-8572Wmnbcen encounter procedureNOMS SWS NEURComment on above:Arrived Start: 02-24-2025 End: 35-78-9969iyivhxtvvoILGV CI PTComment on above:ArrivedStart: 02-22-2025 End: 34-16-6549qvitfpticqHQIE CI PTComment on above:ArrivedStart: 02-17-2025 End: 03-09-5932nedaivjewh75/02/2025 12:00 PM EDT Treatment [facility] CI PT [address] [facility] [address] [place] [address] Andria Bailey, RAMA NOMS CI PTStart: 02-15-2025 End: 46-67-1703fvpokhuaowYERA CI PTComment on above:ArrivedStart: 02-11-2025 End: 49-04-9447jadpurdwbxJUDK CI PTStart: 02-10-2025 End: 02-56-3698Cqscmav encounter vwzqyffbo34/25/2025 1:20 PM EDT Office Visit [facility] SWS NEUR [address] [facility] [address] [place] [address] Carlos Sanchez MD [address] [address] N[facility] SWS NEURStart: 02-08-2025 End: 91-03-6874tdrawwvjef19/23/2025 2:00 PM EDT Treatment [facility] CI PT [address] [facility] [address] [place] [address] Andria Bailey PTA NOMS CI PTStart: 02-04-2025 End: 90-04-4693jhhuzyxvra83/19/2025 2:00 PM EDT Treatment [facility] CI PT [address] [facility] [address] [place] [address] Andria Bailey PTA NOMS CI PTStart: 02-04-2025 End: 41-49-7227Mpablgo encounter procedureNOMS CI PODIATRYComment on above:Mild ankle sprain, right, initial encounter (Primary Dx); Paronychia, toe, right; Diabetes 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 polyneuropathy, with long-term current use of insulin (HCC)Start: 02-02-2025 End: 42-83-8268yjqcmxvzzr06/17/2025 2:00 PM EDT Treatment [facility] CI PT [address] [facility] [address] [place] [address] Gricelda Hammond PTNOMS CI PTStart: 01-29-2025 End: 16-37-4021tgobzhwnfa31/13/2025 1:00 PM EDT Treatment [facility] CI PT [address] [facility] [address] [place] [address] Andria Bailey PTA NOMS CI PTStart: 01-26-2025 End: 27-38-5517Drtkbcv encounter tvlumxcya40/10/2025 12:45 PM EDT Office Visit [facility] [address] [place] [address] Reyes Borges PA [address] [place] [address] [facility] Pain Management ClinicStart: 01-25-2025 End: 53-28-9449xyuxfxihyt58/09/2025 2:00 PM EDT Evaluation [facility] CI PT [address] [place] [address] Gricelda Hammond PTNOMS CI PTStart: 01-14-2025 End: 96-63-7869Swlmsee encounter yanpaptsz04/29/2025 4:20 PM EDT Office Visit [facility] PODIATRY [address] [place] [address] Martin Arango DPM [address] [facility] [address] [place] [address] Mild ankle sprain, right, initial encounter (Primary Dx); Paronychia, toe, rightNOMS CI PODIATRYComment on above:Mild ankle sprain, right, initial encounter (Primary Dx); Paronychia, toe, rightStart: 01-08-2025 End: 91-33-4696qhausdpgmc48/23/2025 1:30 PM EDT Evaluation [facility] CI PT [address] [place] [place] [address] Gricelda Hammond PTNOMS CI PTStart: 01-07-2025 End: 31-03-8601Rdxcroe encounter rodsmznsh47/22/2025 3:40 PM EDT Office Visit [facility] CI PODIATRY [address] [facility] [address] [place] [address] Martin Arango DPM [address] [address] NOMS CI PODIATRYStart: 12-25-2024 End: 21-80-6673Bsezteg encounter flqmazjlb11/09/2025 9:00 AM EDT Office Visit [facility]icians Internal Medicine - Family Medicine [address] [place] [address] Robert Giron, DO [address], [place] [address] [facility] Internal [facility] - [facility] MedicineStart: 12-17-2024 End: 75-89-3569Ycuhlvv encounter dqsxeimtr78/01/2025 1:10 PM EDT Office Visit [facility] PODIATRY [address] [place] [address] Martin Arango DPM [address] [facility] 5 [place] [address] Dwoney neuroma, right (Primary Dx); Acquired deformity of right toe; Paronychia, toe, right; Diabetes 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 polyneuropathy, with long-term current use of insulin ([facility])NOMS CI PODIATRYComment on above:Downey neuroma, right (Primary Dx); Acquired deformity of right toe; Paronychia, toe, right; Diabetes 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 polyneuropathy, with long-term current use of insulin ([facility])Start: 12-15-2024 End: 38-40-6101Ktptxfh encounter hkmymtrmq96/29/2025 3:30 PM EDT Office Visit [facility] - [facility] Medicine [address] [place] [address] Robert Giron, DO [address], [place] [address] [facility] Internal Medicine - [facility] MedicineStart: 12-14-2024 End: 73-35-9725Ienmocb encounter ofecavbsx84/28/2025 1:20 PM EDT Office Visit [facility] SWS NEUR [address] [facility] [address] [place] [address] Carlos Sanchez MD [address] [facility] [address] [id number] NOMS SWS NEURStart: 12-03-2024 End: 72-78-8546Rwfurtw encounter procedureNOMS CI PODIATRYComment on above: Downey neuroma, right (Primary Dx); Diabetes 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 polyneuropathy, with long-term current use of insulin ([facility]); Acquired deformity of right toeStart: 11-19-2024 End: 47-87-1797Wgzaitv encounter procedureNOMS CI PODIATRYComment on above: Acquired deformity of right toe (Primary Dx); Diabetes 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 polyneuropathy, with long-term current use of insulin ([facility])Start: 11-11-2024 End: 65-00-6879Mqkzytd encounter procedureNOMS SWS NEURComment on above:Arrived Start: 10-29-2024 End: 46-97-9071Wfauqth encounter gjawcgejb89/13/2025 4:00 PM EDT Appointment [facility] - Vascular [address] [place] [address] Robert Giron, DO [address] [facility] [address] [place], [place] [phone] (Work) [facility] - VascularStart: 10-26-2024 End: 10-67-4020Ftjuxyp encounter emzvnqwfv57/10/2025 3:30 PM EDT [facility] [address] [place] [address] Robert Giron DO [address] [facility] [place] [address] [facility] Physicians Internal Medicine - Family [facility]art: 10-26-2024 End: 47-21-9823VI.doppler Extremity arteries - bilateral for physiologic artery studyVas art doppler lwr bilat mult lev/PVR Vascular Ultrasound Routine Peripheral arterial disease ([facility]) Expected: 10/26/2024, Expires: 10/26/2025 [employer] Work Phone: Comment on above:Expected: 10/26/2024, Expires: 10/26/2025Start: 10-09-2024 End: 99-61-6293SX.doppler Extremity arteries - bilateral for physiologic artery studyVas art doppler lwr bilat mult lev/PVR Vascular Ultrasound Routine Pain in left leg Expected: 10/09/2024, Expires: 10/09/2025[facility] Work Phone: Comment on above:Expected: 10/09/2024, Expires: 10/09/2025Start: 09-30-2024 End: 93-18-3965Lkhsowl encounter oqwsoyers36/12/2025 1:00 PM EST Appointment [facility] - CT Imaging [address] [place] [address] [phone] Bet[facility]da [facility] - CT ImagingStart: 62-57-0864Fxffvzabj for malignant neoplasm of breastMammogramNOAZ Healthcare Start: 09-24-2024 End: 00-15-6805sdacevuoqwIIAR CI PTStart: 09-22-2024 End: 66-10-0981gdwqdvjrvp59/04/2025 1:30 PM EST Treatment [facility] CI PT [address] [facility] [address] [place] [address] Gricelda Hammond PTNOMS CI PTStart: 09-17-2024 End: 82-66-2215nxjfkxasmj85/30/2025 12:30 PM EST Treatment [facility] CI PT [address] [facility] [address] [place] [address] Gricelda Hammond PTNOMS CI PTStart: 09-16-2024 End: 12-84-0430ZcanuvckrgzuyrpKqxlquszbnrfndl Sleep Center Routine CELINE (obstructive sleep apnea) Chronic migraine without aura without status migrainosus, not intractable (CMS/HCC) Cognitive decline Expected: 09/16/2024 (Approximate), Expires: 09/16/2025[facility] Work Phone: comment on above:Expected: 09/16/2024 (Approximate), Expires: 09/16/2025Start: 09-16-2024 End: 79-52-4243Egiqqan encounter procedureNOMS SWS NEURComment on above:Arrived Start: 09-15-2024 End: 39-17-2215Cgsmwhe encounter fmtlwdaks25/28/2025 3:30 PM EST Office Visit [facility] Internal Medicine - Family Medicine [address] [place] [address] Robert Giron, DO [address] [place] [address] [facility] Internal Medicine - [facility] MedicineStart: 09-15-2024 End: 50-86-4030ayiilqcmlh24/28/2025 12:30 PM EST Treatment [facility] CI PT [address] [facility] [place] [address] Shmuel Levine PTANOMS CI PTStart: 09-10-2024 End: 44-58-8858rhlmcrseke86/23/2025 12:30 PM EST Treatment [facility] CI PT [address] [facility] [place] [address] Shmuel Levine PTANOMS CI PTStart: 09-07-2024 End: 72-72-6784hhirvjlhwhCIJU CI PTStart: 09-04-2024 End: 40-81-3322xgjlzoabfn79/17/2025 2:30 PM EST Treatment [facility] CI PT [address] [facility] [place] [address] Carlotta Melton PTA NOMS CI PTStart: 09-03-2024 End: 03-76-7131kpudpzyqbg47/16/2025 12:30 PM EST Treatment [facility] CI PT [address] [facility] [place] [address] Gricelda Hammond PTNOMS CI PTStart: 09-02-2024 End: 19-51-6041Tyilpmi encounter wysjyqrpd47/15/2025 8:10 AM EST Office Visit [facility] [address] [place] [address] David Villalobos, [address] [facility] [place] [address] N[facility] BCP OBStart: 09-01-2024 End: 46-34-5302gaekbusyesZYHR CI PTComment on above:ArrivedStart: 08-10-2024 End: 63-13-7624Ysszopd encounter procedureNOMS [facility] NEURComment on above:Arrived Start: 07-29-2024 End: 00-59-7409QIA Skeletal system Views for bone densityDEXA bone density Imaging Routine Osteoporosis, post-menopausal ([facility]) Expected: 07/29/2024 (Approximate), Expires: 07/29/2025[facility] Work Phone: comment on above:Expected: 07/29/2024 (Approximate), Expires: 07/29/2025Start: 07-29-2024 End: 38-37-8396Xflpmxb encounter jxkwunwtt95/11/2024 1:30 PM EST Office Visit [facility] OB [address] [facility] [place] [address] David Villalobos, [address] [facility] [place] [address] ArrivedNOMS BCP OBComment on above:ArrivedStart: 07-27-2024 End: 59-25-1125Qduwkqw encounter pozzuymxe43/09/2024 2:00 PM EST Office Visit [facility] NEUR [address] [place] [address] Carlos Sanchez MD [address] [facility] [address] [place] [phone] NOMS SWS NEURStart: 19-44-5209Lcpet BMI Follow Up PlanAdult BMI Follow Up PlanProCincinnati Shriners Hospital SystemStart: 07-08-2024 Diabetic foot examinationDiabetic Foot ExamProCincinnati Shriners Hospital SystemStart: 07-07-2024 End: 18-63-6675Kbxzjjb encounter nwpnxbeku82/19/2024 1:00 PM EST Office Visit [facility] OB [address] [facility] [place] [address] David Villalobos DO [address] [facility] [place] [address] NOMS BCP OBStart: 06-18-2024 End: 70-02-5469Dannjhz encounter /31/2024 3:00 PM EDT Office Visit [facility] CI PODIATRY [address] [facility] [address] [place] [address] Martin Arango DPM [address] [facility] 5 [place] [address] ArrivedNOMS CI PODIATRYComment on above:ArrivedStart: 05-14-2024 End: 31-36-9785Necmsmt encounter procedureNOMS CI PODIATRYComment on above: Capsulitis of metatarsophalangeal (MTP) joint of right foot (Primary Dx); Paronychia, toe, right; Paronychia of toe of left foot; Diabetes 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 polyneuropathy, with long-term current use of insulin ([facility])Start: 04-27-2024 End: 79-59-2778Shlimtu encounter moffcdtkg92/09/2024 2:00 PM EDT Office Visit [facility] SWS NEUR [address] [facility] [address] [place] [address] Carlos Sanchez MD [address] [place] [address] NOMS SWS NEURStart: 04-23-2024 End: 07-24-4209Hevlmzjmrswx / ancillary services zqpevmlxkz09/05/2024 10:20 AM EDT Ancillary Procedure [facility] CI PODIATRY [address] [facility] [address] [place] [address] ArrivedNOMS CI PODIATRYComment on above:ArrivedStart: 04-23-2024 End: 44-01-8403Ppeoiqp encounter procedureNOMS CI PODIATRYComment on above: Capsulitis of metatarsophalangeal (MTP) joint of right foot (Primary Dx); Paronychia, toe, right; Paronychia of toe of left foot; Toe pain, left; Toe pain, right; Diabetes 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 polyneuropathy, with long-term current use of insulin ([facility])Start: 04-21-2024 End: 42-88-7598Zmgbmrc encounter iascsglle73/03/2024 1:00 PM EDT Office Visit [facility] ORTHOPAEDICS [address] [facility] [address] [place] [address] Pastora Alcantara DO [address] [facility] [address] [place] [address] NOMS CI ORTHOPAEDICSStart: 46-36-9575Jzkjs-19 Vaccine ( season)Covid-19 Vaccine ( season)[facility]: 51-84-5825Vvtdqtrzf vaccinationInfluenza Vaccine (#1)[facility]: 04-16-2024 End: 67-60-5366Zijheln encounter fejxtutnq01/29/2024 1:50 PM EDT Office Visit [facility] CI PODIATRY [address] [facility] [address] [place] [address] Martin Arango DPM [address] [facility] 5 [place] [address] NOMS CI PODIATRYStart: 04-15-2024 End: 90-29-2971vhrwcykkwnQDRO CI PTComment on above:Arthritis of left kneeStart: 04-14-2024 End: 11-26-3883Drukftl encounter procedureNOMS CI ORTHOPAEDICSComment on above: Left knee pain, unspecified chronicity (Primary Dx); Left wrist pain; Ulnar neuropathy at elbow of left upper extremityStart: 04-13-2024 End: 09-92-5388Wnwuhke encounter procedureNOMS CI ORTHOPAEDICSComment on above: Left elbow pain (Primary Dx); Left wrist pain; Ulnar neuropathy at elbow of left upper extremityStart: 04-09-2024 End: 05-65-1252Umhhdto encounter /22/2024 10:30 AM EDT Office Visit [facility] PODIATRY [address] [facility] [address] [place] [address] Matrin Arango DPM [address] [facility] 5 [place] [address] NOMS CI PODIATRYStart: 04-08-2024 End: 65-91-8819Rimrhua encounter udydqutqv55/21/2024 12:30 PM EDT Office Visit [facility] ORTHOPAEDICS [address] [facility] [address] [place] [address] Cj Zepeda, ADJUNCT PSYCHOLOGY INSTRUCTOR [address] [facility] [address] [place] [address] Left knee pain, unspecified chronicity (Primary Dx); Arthritis of left knee; Acute medial meniscus tear of left knee, initial encounterNOMS CI ORTHOPAEDICSComment on above:Left knee pain, unspecified chronicity (Primary Dx); Arthritis of left knee; Acute medial meniscus tear of left knee, initial encounterStart: 10-28-2023 End: 30-57-5461Bxieosy encounter bfxfijoah83/11/2024 3:20 PM EDT Office Visit [facility] SWS NEUR [address] [facility] [address] [place] [address] Carlos Sanchez MD [address] [facility] [address] [place] [id number] NOMS SWS NEURStart: 90-83-6244Cgytl screening for proteinUrine MicroalbuminProMedica Health SystemStart: 10-17-2023 End: 33-07-2823Tbzwyox encounter procedureNOMS CI PODIATRYStart: 10-09-2023 End: 80-18-1361Irfzbtk encounter mezwifeaj08/21/2024 8:30 AM EST Procedure Visit [facility] EXT DEP Martin Arango, DPM [address] [facility] 5 [place] [address] NOMS EXT DEPStart: 09-26-2023 End: 66-03-1373Qbewigr encounter uktjipdwa29/08/2024 3:10 PM EST Office Visit [facility] CI PODIATRY [address] [facility] [address] [place] [address] Martin Arango, DPM [address] [facility] 5 [place] [address] NOMS CI PODIATRYStart: 86-00-0155Cnusgbmz Screening Diabetes ScreeningPike Community Hospitaltart: 29-57-4358Iktpcmaaj for malignant neoplasm of colonPike Community Hospitaltart: 94-23-7139Azmwcfce Vaccine (1 of 2) Shingrix Vaccine (1 of 2)[facility]: 32-02-1240Mfyel panelLipid ScreeningPike Community Hospitaltart: 44-44-3955Opdnqwzrq for malignant neoplasm of colonPike Community Hospitaltart: 01-87-2543Teeugcrbp for malignant neoplasm of breast Mammogram ScreeningPike Community Hospitaltart: 17-71-7963Ukqyzhbow for malignant neoplasm of cervixNOMS HealthcareStart: 38-04-3993Uxqvkdsia for malignant neoplasm of cervixPike Community Hospitaltart: 45-11-4643NPbX,Tdap and Td Vaccines (1 - Tdap)DTaP,Tdap and Td Vaccines (1 - Tdap)[facility] SystemStart: 22-51-3154Bjosqeinf B Vaccine (1 of 3 - 19+ 3-dose series)Hepatitis B Vaccine (1 of 3 - 19+ 3-dose series)[facility]: 47-15-8716Knnxy microalbumin profileDTaP,Tdap,Td Vaccine (1 - Tdap)[facility]: 35-43-7865Wawlnny ScreeningAnxiety ScreeningPike Community Hospitaltart: 42-18-2955Ybrnxmxhpi Screening Depression ScreeningPike Community Hospitaltart: 86-60-4200Xhpqrmjcx C screening Hepatitis C ScreeningPike Community Hospitaltart: 78-79-5550WXB screeningHIV Screening [facility]rt: 81-41-5248Bvftuiqwzjiw vaccinationPneumococcal Vaccine (1 of 2 - PCV)[facility]: 95-10-7542Hgfrkxxr screeningDiabetic Ophthalmology ExamAtrium Health Pinevilletart: 46-33-3240Eyxnuxonq for malignant neoplasm of colonNOMS HealthcareStart: 67-73-5594Aabyxnc Counseling Tobacco CounselingDayton VA Medical Center End: 51-42-1320Cgchgjepzjplu metabolic 2000 panel - Serum or PlasmaComprehensive metabolic panel Lab Routine Essential hypertension 1 Occurrences starting 09/15/2024 until 09/15/2025[facility] Medical CenterComment on above:1 Occurrences starting 09/15/2024 until 09/15/2025 End: 83-10-8317Tewq Screen, UrineDrug Screen, Urine Lab Routine Medication management 1 Occurrences starting 09/15/2024 until 09/15/2025[facility] Medical CenterComment on above:1 Occurrences starting 09/15/2024 until 09/15/2025 End: 72-94-4828Wlwd Screen, UrineDrug Screen, Urine Lab Routine Anxiety Medication monitoring encounter 1 Occurrences starting 10/26/2024 until 10/26/2025[facility] Medical CenterComment on above:1 Occurrences starting 10/26/2024 until 10/26/2025 End: 03-79-1523Kldnfcmxtx A1c/Hemoglobin.total in BloodHemoglobin A1c Lab Routine Diabetes mellitus without complication ([facility]) 1 Occurrences starting 09/15/2024 until 09/15/2025[employer] Work Phone: Comment on above:1 Occurrences starting 09/15/2024 until 09/15/2025 End: 05-43-3502Kfkij panelLipid panel Lab Routine Mixed hyperlipidemia 1 Occurrences starting 09/15/2024 until 09/15/2025[facility] [employer] [facility] HospitalComment on above:1 Occurrences starting 09/15/2024 until 09/15/2025 End: 87-04-1101Ebefbadwibux - Albumin: Creatinine Urine RatioMicroalbumin - Albumin: Creatinine Urine Ratio Lab Routine Diabetes mellitus without complication ([facility]) 1 Occurrences starting 12/15/2024 until 12/15/2025 [facility] Work Phone: Comment on above:1 Occurrences starting 12/15/2024 until 12/15/2025Microalbumin - Albumin: Creatinine Urine RatioMicroalbumin - Albumin: Creatinine Urine Ratio Lab Routine Diabetes mellitus without complication ([facility]) 12/15/2024 4:11 PM [employer] Chelsea HospitalTHIN PREP TIS PAP AND HR HPV DNATHIN PREP TIS PAP AND HR HPV DNA Pathology and Cytology Routine Well woman exam with routine gynecological exam H/O: hysterectomy Ordered: 07/29/2024[facility] DeltasightComment on above:Ordered: 07/29/2024 End: 14-84-0303Kyheveej and Metabolite, UTramadol and Metabolite, U Lab Routine Lumbosacral radiculopathy at L5 Osteoarthritis, unspecified osteoarthritis type, unspecified site 1 Occurrences starting 03/16/2025 until 03/16/2026[facility] Work Phone: Comment on above:1 Occurrences starting 03/16/2025 until 03/16/2026Tramadol and Metabolite, UTramadol and Metabolite, U Lab Routine Lumbosacral radiculopathy at L5 Osteoarthritis, unspecified osteoarthritis type, unspecified site 03/16/2025 3:16 PM [employer] End: 16-42-1620CY Cervical spine 4 or 5 ViewsX-ray spine cervical 4 or 5 views Imaging Routine Cervical spondylosis without myelopathy 1 Occurrences starting 12/15/2024 until 12/15/2025[employer] Work Phone: Comment on above:1 Occurrences starting 12/15/2024 until 12/15/2025XR Foot - right 3 ViewsXR foot 3+ views right Imaging Routine Paronychia, toe, right 04/23/2024 10:16 AM [employer] Work Phone: XR Knee - left 1 or 2 ViewsXR knee 1 or 2 views left Imaging Routine Acute pain of left knee 03/09/2025 10:54 AM [employer] Work Phone: Immunizations Immunization DateImmunizationNotesCare NtityvbdKzcalhfm99-42-5864Kllan-49,mrna, Lnp-s, Pf, 50mcg/0.5ml 12+Robert Furlong DO Work Phone: [facility] CenterGewlgy85-47-9564vzdibmycs, seasonal, injectable, preservative freeDennis Furlong DO Work Phone: [facility] CenterCjzhbr10-68-8843Xfripogwxazn Conjugate 20-valentDennis Furlong DO Work Phone: [facility]09-24-2024zoster vaccine recombinantDennis Furlong DO Work Phone: [facility] CenterDxmztv52-76-4294rmemaqojg virus vaccine, unspecified formulationNicarmani Arango DPM Work Phone: [facility] Bkrlndcs40-50-6431dzbowq vaccine recombinantMaria Apling ADJUNCT PSYCHOLOGY INSTRUCTOR Work Phone: [facility] SystemBbnrfedbaj37-85-5737yqkiaygcx virus vaccine, unspecified formulationJENNIFER YUDY [facility] Tfxsaulo47-76-6524OIZN-EFF-0 (COVID-19) vaccine, mRNA, spike protein, LNP, PF, 50 mcg/0.5 mLMaria Apling ADJUNCT PSYCHOLOGY INSTRUCTOR Work Phone: [facility] SystemAtasbuphht71-34-2317bcyswchpa virus vaccine, unspecified formulationAmanda STANG 012-3043Hfpmgo-EkectMercy Health Def[facility] Hospital [facility]est[facility] Phuqll49-51-9920 hepatitis A vaccine, adult dosageAmanda STANG 135-4693Xpmyqc-SowykMercy Health Def[facility] Hospital [facility]estive Ucgxnr45-58-8042 hepatitis A vaccine, adult dosageAmanda STANG 071-2044Lvlvmz-QinumMercy Health [facility] Hospital Digestive HealthNEGATED: Highlighted row has not occurred!97-48-4459znohfggbt virus vaccine, unspecified formulationAmanda STANG 651-5582Ggadrn-VlozmMercy Health Defiance Hospital Digestive HealthNEGATED: Highlighted row has not occurred!80-35-6589lsubolnxq virus vaccine, unspecified formulationInessa Grajeda 209-2088Lbhlri-OlnunMercy Health [facility]iance Hospital Digestive HealthNEGATED: Highlighted row has not occurred!41-62-8324dkdxdpgeo virus vaccine, unspecified formulationInessa Grajeda 213-4285Ubxgef-VsdsuMercy Health Defiance Hospital Digestive HealthNEGATED: Highlighted row has not occurred!83-39-3494jwdpzqltc virus vaccine, unspecified formulationCady CALIX 547-3118Fvffqx-EwfowMercy Health Defiance Hospital [facility]NE[facility]: Highlighted row has not occurred!65-90-8749kvpvpteix virus vaccine, unspecified formulationPatrick [facility] NEGATED: Highlighted row has not occurred!12-11-2021 SARS-CoV-2 (COVID-19) Ad26 vaccine, recombinantSharynShellcatchk [facility] NEGATED: Highlighted row has not occurred!11-07-2021 influenza virus vaccine, unspecified formulationvivian Grajeda [facility]NE[facility]: Highlighted row has not occurred!52-17-7275LOTV-CoV-2 (COVID-19) Ad26 vaccine, recombinantInessa Carmenmetz [facility] Payers DatePayer CategoryPayerPolicy [id number]-[id number] [id number] [employer] MEDICAID [id number] Health InsuranceCARESOURCE MEDICAID Member Subscriber Plan / Payer (Effective 2017-Present) Name: Rock Herrera Relation to Subscriber: Self Name: Rock Herrera Payer ID: Not on file Group ID: [id number] Type: Not on file Address: [address] [place] [id number] [id number] 2..1.342610.3.579.[id number] 2..1.091907.3.579.2.13878-36-4266Kjgccmx6876317 2..1.609847.3.579.2.20750-78-5804Vamrecy4359543 2..1.697799.3.579.2.11204-90-6464Jmggunu0648144 2..1.167184.3.579.2.49238-82-4063Eieyyzq0439020 2..1.020920.3.579.2.55324-26-8676Serlgwi0705922 2.16.840.1.704689.3.579.2.06929-77-3630Xdygkxy8701570 2.16.840.1.539503.3.579.2.44779-97-2219Oymbwmb7540899 2.16.840.1.598181.3.579.2.30589-67-5654Dfkodyz8812332 2.16.840.1.799653.3.579.2.04082-92-9422Lxvczjz4940986 2.16.840.1.917017.3.579.2.94349-91-1696Mhsocko6298458 2.840.1.982833.3.579.2.78505-20-1809Colcyez6868585 2.840.1.667381.3.579.2.98570-13-2861Vxglvzh5145335 2.840.1.417754.3.579.2.58165-18-9131Afyhvnh2145957 2.840.1.950235.3.579.2.22558-31-4035Svbywvs36223086 2..840.1.762185.3.579.2.96002-83-1745Crnftzv612418333 2.840.1.121704.3.579.2.107954-97-9042Ukemyyd141801617 2..840.1.248866.3.579.2.311148-28-7135Yzqjgrh26102374 2..840.1.143559.3.579.2.106333-94-5298Sjujoav41520086 2..840.1.019364.3.579.2.887714-29-0012Ghnkrtd01740721 2.840.1.465913.3.579.2.626537-94-3665Jszfvza87216047 2.840.1.261749.3.579.2.964437-99-3388Bzvtypn42229523 2.840.1.537016.3.579.2.051064-45-8355Nwjhtax78716306 2.840.1.346629.3.579.2.272143-49-1591Ydymthq54079685 2.840.1.086386.3.579.2.089501-60-5370Yujdspt99017114 2.0.1.002488.3.579.2.938604-43-9822Uxshmtf88466628 2.0.1.560849.3.579.2.996739-80-1574Cusitzr16867958 2.0.1.720445.3.579.2.741852-77-9247Flltljl30732895 2.0.1.839301.3.579.2.327258-73-1555Fsjklqm97618859 2.0.1.100104.3.579.2.860977-27-3008Fbwzzpn03827979 2..1.657595.3.579.2.153713-85-1610Jvzowcm35187265 2.0.1.903990.3.579.2.306263-45-3533Xwvlhok69482446 2.0.1.823321.3.579.2.599377-54-0415Qrmvcjc54164862 2.840.1.495891.3.579.2.038137-60-4647Xbgoevq462953959 2.840.1.638777.3.579.2.122220-51-5301Vzrglny791839075 2.16.840.1.740951.3.579.2.464520-45-8097Annpnoe314866077 2.16.840.1.167013.3.579.2.393719-31-5668Nkreqcw56750495 2.16.840.1.290428.3.579.2.237760-44-1849Mhrtllw53168358 2.840.1.428869.3.579.2.895653-69-7188Eoryucu03125625 2..840.1.496401.3.579.2.29596-99-5843Jhfaulo03581162 2.840.1.467526.3.579.2.75862-62-9057Ufpeyar49895809 2.840.1.913683.3.579.2.73739-84-1908Emntoeq65206337 2.840.1.011185.3.579.2.77154-61-3046Csatxxk40914201 2.840.1.673342.3.579.2.23719-66-3656Wxjzfpw54953693 2.840.1.649309.3.579.2.34773-51-4222Dtbgtgr99006570 2.840.1.326625.3.579.2.529623-61-7689Vusybzo41030321 2..840.1.686836.3.579.2.414349-25-9416Idqnkkt86007757 2.840.1.210171.3.579.2.600404-99-0100Iezvxvl29510275 2.840.1.035548.3.579.2.265401-35-8360Eojgslo40800844 2.840.1.284255.3.579.2.076732-00-6190Kbhyelh85367071 2.16.840.1.641307.3.579.2.099575-71-6610Svmtdfe67826999 2.16.840.1.453480.3.579.2.265027-91-4590Mjzfmtq52627224 2.16.840.1.262993.3.579.2.137542-35-8226Wtmidil37822414 2.16.840.1.156746.3.579.2.599475-60-5665Njgvobh08677649 2.160.1.292783.3.579.2.169808-68-8913Dakxmyi26455899 2.0.1.971777.3.579.2.933071-60-8804Udncmyx19190436 2.0.1.833111.3.579.2.018318-42-6868Qhzwwjy5529079 2.0.1.572616.3.579.2.533831-87-1521Dhbtzah8572004 2.0.1.230678.3.579.2.100957-32-3505Hdzkgzb7791311 2.840.1.794601.3.579.2.394542-54-4935Jicepca6453216 2.840.1.589082.3.579.2.752662-90-1867Wmcebfv4172039 2.840.1.082470.3.579.2.388761-12-8306Ybxiajp6041440 2.840.1.085813.3.579.2.732072-69-0015Qsurrbe8357504 2.840.1.282939.3.579.2.022658-29-3189Kzunqhp6516821 2.16.840.1.415626.3.579.2.123473-05-4762Mhlxmzr2083181 2.16.840.1.183599.3.579.2.977318-43-8172Bixtbao7898739 2.16.840.1.562986.3.579.2.869883-57-8081Budhsto9136430 2.16.840.1.417429.3.579.2.217260-43-6995Vaboaqq4708140 2.16.840.1.679972.3.579.2.627756-99-7169Eluwgqo8343414 2..840.1.891924.3.579.2.097567-68-9441Ghdfvwy7052944 2.840.1.928165.3.579.2.419680-29-4683Zfvwpcf9281594 2..840.1.382167.3.579.2.025314-67-7982Wkabudy7975486 2..840.1.800894.3.579.2.568976-95-9091Vsoowzh3056559 2.16.840.1.272996.3.579.2.497709-05-9405Rcaurat3725727 2..840.1.673647.3.579.2.540416-87-7387Okwoguf4799466 2..840.1.883909.3.579.2.466080-98-9198Tceweub2075293 2..840.1.383340.3.579.2.698057-96-2114Vnyouzo7330837 2..840.1.439354.3.579.2.931649-72-5362Fqgssrv6932177 2.16.840.1.320237.3.579.2.063314-06-7684Jrvexeq9896831 2.16.840.1.455925.3.579.2.453998-61-7651Phwxhgf2208053 2.16.840.1.401892.3.579.2.019410-81-5948Mujrwzn0104260 2.16.840.1.585196.3.579.2.584543-31-8041Ijreofn8882635 2.16.840.1.308565.3.579.2.824852-42-6893Bzkfbup7187269 2..840.1.709932.3.579.2.312676-23-0645Zeglemc3247431 2.16.840.1.545694.3.579.2.463931-17-0658Dscfojp94080120 2.840.1.773295.3.579.2.15288-31-6146Vnnrnwj14534079 2.840.1.464389.3.579.2.52508-72-9863Oqxoxtd513849882 2..840.1.996415.3.579.2.951637-27-3487Nbpccle007978156 2..840.1.610768.3.579.2.897351-42-7596Fjerpwm120994753 2.840.1.732851.3.579.2.094192-60-9468Fqaahxd071382340 2..840.1.072066.3.579.2.615906-52-4431Etlgzux630174317 2..840.1.998225.3.579.2.548677-83-3245Pnnzqyi231042232 2..840.1.280799.3.579.2.164727-98-3907Bedpibh837122888 2..840.1.330689.3.579.2.415550-36-2142Sdkwpwb575241654 2.16.840.1.098926.3.579.2.459096-28-7743Altqnvi47922971 2.16.840.1.698993.3.579.2.45618-48-1558Ldurkzl44281685 2.16.840.1.445556.3.579.2.23960-57-1119Mrquhho81302536 2.16.840.1.289080.3.579.2.01230-31-2914Vwolzbm55558894 2..840.1.725441.3.579.2.16448-00-3571Xdzbndw68510460 2.16.840.1.838415.3.57[id number] Health Mqwddolhd945542254 89-80-9966Yunjapl302111254503360572Esypagc73698014847843-63-3172AtgpoyqXW1848523Zqeolpd91483272 2.16.840.1.597103.3.579.2.477Brfuuua26097439 2.840.1.364108.3.579.2.531 Jkbwker23114674 2.0.1.540614.3.579.2.531 Social History DateTypeDetailFacilityStart: 11-07-2021 End: 82-83-0992Yhiawob smoking statusHeavy tobacco smoker (finding)[facility] TownshipComment on above:1 pack per day smokerStart: 08-28-2023 End: 90-39-2148Ewr Assigned At BirthFePremier Health Miami Valley HospitalTobacco [facility] comment on above:1 ppdsmokes 1 ppd.Start: 10-31-2022 Tobacco smoking statusNeverMercy Health [facility] Digestive HealthStart: 84-10-6892Rid Assigned At BirthFemalThe University of Toledo Medical CenterTobacco smoking statusRegional Medical Centertart: 08-19-1985 End: 10-51-5142Pevyimh smoking status NHISSmoker (finding)Centervilletart: 01-04-2022 End: 36-82-5976Cwpkhja smoking status NHISSmokes tobacco dailyNOMS Healthcare Start: 08-19-1985 End: 15-28-8441Aesnffp of tobacco useCigarette SmokerNOMS HealthcareHistory of tobacco usePassive smokerNOMS HealthcareStart: 06-20-2023 End: 52-87-7964Zrymegg use and exposureSmokeless tobacco non-userNOMS Healthcare Start: 08-28-2023 End: 57-36-3742Rmfcwuf intakeEx-drinker (finding)[facility] HealthcareStart: 08-28-2023 End: 54-18-2793Smtdeft of Social functionNOMS HealthcareStart: 99-69-1896Qxugdfp Commentcaffeine 1-2 cups per dayASHLEY REGIONAL [facility] HealthcareStart: 04-09-4958Rnb Assigned At BirthNot on fileNOMS HealthcareStart: 71-45-1770Jopsjibtt beverage intake Current non-drinker of alcohol (finding)[facility]tart: 68-60-8173Kbymcvw CommentVaporization also. started to smoke at 12P[facility] Hospitaltart: 03-20-2021 End: 24-25-4913Ripkmewv to SARS-CoV-2 (event)Not sureColfax ClinicHow often to you have a drink containing alcohol?Monthly or lessNOMS HealthcareHow many standard drinks containing alcohol do you have on a typical day?1 or 2NOMS HealthcareHow often do you have 6 or more drinks on 1 occasion?Less than monthly [facility] HealthcareStart: 15-79-2158Ickzukw Commentcaffeine intake: 1-2 cups per day [facility] HealthcareStart: 89-90-0526Vmfkgw identityIdentifies as female gender (finding)[facility] HealthcareHas the Spoke gas, oil, or water company threatened to shut off services in your home in past 12MoNoProKettering HealthAre you now , , , , never or living with a partner?SeparatedDayton VA Medical CenterHow many standard drinks containing alcohol do you have on a typical day?3 or 4ProKettering HealthHow often do you have 6 or more drinks on 1 occasion?NeverProKettering HealthHow hard is it for you to pay for the very basics like food, housing, medical care, and heatingNot very hardProKettering HealthDo you feel stress - tense, restless, nervous, or anxious, or unable to sleep at night because yourmind is troubled all the time - these days [OSQ]To some extentAtrium Health Pinevilletart: 03-24-2015 End: 07-29-8728FkhDbuupg (finding)[facility]villetart: 02-24-2025 End: 08-49-1496Couoftk smoking status NHISEx-smokerDayton VA Medical Center Medical Equipment Procedure CodeEquipment CodeEquipment Original TextEquipment IdentifierDates Phacoemulsification of cataract with intraocular lens implantationPosterior- chamber intraocular lens, pseudophakic()[id number] FDAStart: 46-62-4863Aqhgmjgjogmvknnucyb of cataract with intraocular lens implantationPosterior-chamber intraocular lens, pseudophakic ()[id number] FDAStart: 94-18-3997VVWHIICPL REPAIR Brown DPM, Martin A 4/5 Non Biological Foot RFDAStart: 11-21-2022 HAMMERTOE REPAIR Brown DPM, Martin A 4/01/08 Non Biological Foot RFDAStart: 61-09-3673XQNQYEPAV REPAIR Brown DPM, Martin A 4/5 Non Biological Foot RFDA Start: 71-58-2376OJUUEGTDN REPAIR Brown DPM, Martin A 4/01/08 Non Biological Foot RFDAStart: 63-48-3197SIMIFHMGF REPAIR Brown DPM, Martin A 4/5 Non Biological Foot RFDAStart: 61-30-6425HPQAPGSUC REPAIR Brown DPM, Martin A 11/21/22 Non Biological Foot RFDAStart: 82-22-2512PRLPOEKOM REPAIR Brown DPM, Martin A 11/21/22 Non Biological Foot RFDAStart: 20-69-7029JKELQPIQM REPAIR Brown DPM, Martin A 11/21/22 Non Biological Foot RFDAStart: 85-75-6494CFWQPLXEH REPAIR Brown DPM, Martin A 11/21/22 Non Biological Foot RFDAStart: 11-21-2022 HAMMERTOE REPAIR Brown DPM, Martin A 11/21/22 Non Biological Foot RFDAStart: 23-21-8370EIWANNODU REPAIR Brown DPM, Martin A 11/21/22 Non Biological Foot RFDA Start: 03-05-1281SWUCWGHRE REPAIR Brown DPM, Martin A 11/21/22 Non Biological Foot RFDAStart: 53-58-9686PBBPEMNLO REPAIR Brown DPM, Martin A 11/21/22 Non Biological Foot RFDAStart: 40-31-8877QWZMTGPHS REPAIR Brown DPM, Martin A 11/21/22 Non Biological Foot RFDAStart: 34-89-2994SJFYCMPLT REPAIR Brown DPM, Martin A 11/21/22 Non Biological Foot RFDAStart: 61-42-3022TNIMFAQUW REPAIR Brown DPM, Martin A 11/21/22 Non Biological Foot RFDAStart: 95-75-2208RCYURVBJN REPAIR Brown DPM, Martin A 11/21/22 Non Biological Foot RFDAStart: 11-21-2022 HAMMERTOE REPAIR Brown DPM, Martin A 11/21/22 Non Biological Foot RFDAStart: 40-65-5665WECACBGJW REPAIR Brown DPM, Martin A 11/21/22 Non Biological Foot RFDA Start: 02-15-2266BMPDFYRFQ REPAIR Brown DPM, Martin A 11/21/22 Non Biological Foot RFDAStart: 78-80-1061NWJRINFHK REPAIR Brown DPM, Martin A 11/21/22 Non Biological Foot RFDAStart: 43-21-4788OTJPWOQAH REPAIR Brown DPM, Martin A 11/21/22 Non Biological Foot RFDAStart: 96-04-0039GKPGWKTNO REPAIR Brown DPM, Martin A 11/21/22 Non Biological Foot RFDAStart: 41-74-3932TFIGVVWVI REPAIR Brown DPM, Martin A 11/21/22 Non Biological Foot RFDAStart: 58-25-9598CQDTJOTXH REPAIR Brown DPM, Martin A 11/21/22 Non Biological Foot RFDAStart: 11-21-2022 HAMMERTOE REPAIR Brown DPM, Martni A 11/21/22 Non Biological Foot RFDAStart: 12-84-8183ZSNVOVKQB REPAIR Brown DPM, Martin A 11/21/22 Non Biological Foot RFDA Start: 90-25-9249BANNDLBUI REPAIR Brown DPM, Martin A 11/21/22 Non Biological Foot RFDAStart: 23-19-3013JZUGWTMTJ REPAIR Brown DPM, Martin A 11/21/22 Non Biological Foot RFDAStart: 03-37-9967LHJPWOZXH REPAIR Brown DPM, Martin A 11/21/22 Non Biological Foot RFDAStart: 06-25-7678EPLDUOSAN REPAIR Brown DPM, Martin A 11/21/22 Non Biological Foot RFDAStart: 76-60-7233YBHAWPQKQ REPAIR Brown DPM, Martin A 11/21/22 Non Biological Foot RFDAStart: 81-36-0300CCCQMKFTX REPAIR Brown DPM, Martin A 11/21/22 Non Biological Foot RFDAStart: 11-21-2022 HAMMERTOE REPAIR Brown DPM, Martin A 11/21/22 Non Biological Foot RFDAStart: 11-82-8237GSVYBIXWY REPAIR Brown DPM, Martin A 11/21/22 Non Biological Foot RFDA Start: 68-26-7884JNURZPZOI REPAIR Brown DPM, Martin A 11/21/22 Non Biological Foot RFDAStart: 35-38-0872566091932Yvzlw: 09-23-2024 End: 54-66-2374Nwjzwc 1 Lancet under the skin in the morning.836744538Ourwz: 09-23-2024 End: 68-13-9652LXMGJDXMC REPAIR Brown DPM, Martin A 4// Non Biological Foot RFDAStart: 13-35-4459IPHXQXLXO REPAIR Brown DPM, Martin A /01/08 Non Biological Foot RFDAStart: 19-93-2929TANREHPGY REPAIR Brown DPM, Martin A 4/01/08 Non Biological Foot RFDAStart: 77-16-4986ZVQGCBSLX REPAIR Brown DPM, Martin A 4/01/08 Non Biological Foot RFDAStart: 31-43-5076KFWAXAHJJ REPAIR Brown DPM, Martin A /01/08 Non Biological Foot RFDAStart: 34-22-4009NPXMYLPSC REPAIR Brown DPM, Martin A /01/08 Non Biological Foot RFDAStart: strip by other route as needed for high blood sugar.380891044Ggbbs: strip by other route as needed for high blood sugar.127829605Xxnsw: 02-24-2025 End: Lancet by miscellaneous route in the morning.892793306Ccygv: 56-52-2784QQQBUVNGX REPAIR Brown DPM, Martin A 4/01/08 Non Biological Foot RFDA Start: 68-95-3561GNOXMDCVI REPAIR Brown DPM, Martin A 4/01/08 Non Biological Foot RFDAStart: 21-32-2929CBZYSEERS REPAIR Brown DPM, Martin A 4/01/08 Non Biological Foot RFDAStart: 95-81-5918HZUJGZTXV REPAIR Brown DPM, Martin A /01/08 Non Biological Foot RFDAStart: 11-21-2022 Functional Status LcwfUbfwbhqzslBtmljhSlvtqutd17-17-9853Zrkpvrtgye StatusN/AFSt. [facility]12-26-2024Functional StatusN/[facility]07-18-2024 Functional StatusN/[facility]06-13-2024Functional StatusN/A [facility]05-29-2024Functional StatusN/[facility]05-15-2024Functional StatusN/[facility] 72-44-1693Bbbbvdxucl StatusN/A[facility]03-20-2024Functional StatusN/[facility]01-30-2024 Functional StatusN/A[facility] 02-08-7045Tukzczvnwl StatusSt. [facility]11-17-2023Functional StatusSt. [facility]10-02-2023Functional StatusSt. [facility]06-01-2023Functional StatusN/[facility] 43-47-3486Cbklrbmdhj StatusSt. Elizabeth Hospital03-13-2023Functional StatusN/[facility]ive Tzgjgy64-42-1435Kyeugzmhyk Status N/[facility]02-24-2023Functional StatusN/[facility]02-14-2023Functional StatusN/[facility] Npdngr04-22-8947Ndxqibswbe StatusN/[facility] 16-49-1903Noclkprmrq StatusSt. Elizabeth Hospital07-19-2022Functional StatusN/[facility] Clinical Notes 04-19-2021 to 06-03-2025 Note Date & CjqzWjacJjzfqzcz14-26-2745 NoteReturned call to patient. Left a voicemail. Stated [...] between the pain medication. As far as [facility] I am unsure why she is not able to have this. ELDON Sotomayor set this up prior to surgery. From her note it looks like [facility] first available is 06/09. I have asked Fredy to contact patient and also gave the patient her number as well. [facility]10-14-2025 Telephone encounter Note* Telephone Encounter - Odette Jacobs - 06/01/2025 3:47 PM EDT Called to set-up OP PO PT; dos 05/31 of Total Knee. She said she is need of PT at home due to no mobility. Due to s[place] I advised for her to contact the doctor office to discuss; she said she had notified that is what she was going to need. [facility] SystemLpjkzbcqms00-07-4788 Miscellaneous Notes* Telephone Encounter - Odette Jacobs - 06/01/2025 3:47 PM EDT Called to set-up OP PO PT; dos 05/31 of Total Knee. She said she is need of PT at home due to no mobility. Due to s[place] place at [place] I advised for her to contact the doctor office to discuss; she said she had notified that is what she was going to need. documented in this encounterDeaconess Incarnate Word Health [id number] NotePatient: Rock Herrera Procedure Summary Date: 05/31/25 Room / Location: [facility] OPERATING ROOM 02 / [facility] Operating Room Anesthesia Start: 730 Anesthesia Stop: 956 Procedure: ROBOT-ASSISTED KNEE ARTHROPLASTY (Left: Knee) Diagnosis: Left knee pain, unspecified chronicity Primary osteoarthritis of both knees (Left knee pain, unspecified chronicity [M25.562]) (Primary osteoarthritis of both knees [M17.0]) Surgeons: Josseline Abad MD Responsible Provider: Uyen Liao MD Anesthesia Type: general, regional ASA Status: 3 Anesthesia Type: general, regional Vitals Value Taken Time BP 137/76 05/31/25 10:55 Temp 36.6 ???C (97.9 ???F) 05/31/25 09:57 Pulse 73 05/31/25 10:59 Resp 11 05/31/25 10:59 SpO2 98 % 05/31/25 10:59 Vitals shown include unfiled device data. Anesthesia Post Evaluation Patient location during evaluation: PACU Patient participation: complete - patient participated Level of consciousness: awake Pain score: 5 Pain management: adequate Airway patency: patent Cardiovascular status: acceptable Respiratory status: acceptable Patient is hemodynamically stable and is able to be discharged from PACU per anesthesia protocol. No notable events documented.[facility]10-13-2025 Note Physical Therapy Physical Therapy Evaluation Patient Name: Rock Herrera : 1970 Today's Date: 05/31/2025 Start Time: 1156 Stop Time: 1217 Time Calculation (min): 21 min PT Evaluation Time Entry PT Evaluation (Low) Time Entry: 21 General Subjective: I'm ready for a nap. Session okay per RN. Pt seen and evaluated POD0 in PACU. Pt supine in stretcher upon arrival, agreeable to PT session. Performed bed mobility, transfers, and amb this date. Returned to supine in stretcher with PT needs met prior to exit. RN aware of pt performance. Patient Summary: Pt is 54 y.o female presenting to [facility] with c/o L knee pain 2/2 OA. pt is s/p L TKA. 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 PT Diagnosis: Decreased functional mobility s/p L TKA Problem List[1] Medical History[2] Surgical History[3] Precautions Precautions LE Weight Bearing Status: Left, WBAT Medical Precautions: TKA, fall risk, IV, telemetry, nerve block Post-Surgical Precautions: L TKA Pain Pain Assessment Pain Assessment: 0-10 Pain Score: 6 Pain Type: Acute pain, Surgical pain Pain Location: Knee Pain Orientation: Left Cognition Cognition Overall Cognitive Status: Within Functional Limits Arousal/Alertness: Delayed responses to stimuli (Pt lethargic post-operatively) Orientation Level: Oriented X4 Following Commands: Follows multistep commands with increased time, Follows multistep commands with repetition Safety Judgment: Good awareness of safety precautions Awareness of Errors: Assistance required to identify errors made Deficits: Fully aware of deficits Attention Span: Appears intact Memory: Appears intact Problem Solving: Assistance required to identify errors made Communication: Intact Cognition Comments: Pt somewhat lethargic post-operatively. Does not limit session, though she does require increased time/effort to complete General Assessment General Assessment Hearing: WFL Skin Integrity: Incision site covered. All other visualized areas intact Edema: Mild to L knee post-op Home Living Home Living Type of Home: Mobile home Lives With: Significant other Home Adaptive Equipment: Walker rolling, Rollator, Cane Home Layout: One level Home Access: Ramped entrance Bathroom Shower/Tub: Tub/shower unit Bathroom Toilet: Handicapped height Bathroom Equipment: Grab bars in shower, Tub transfer bench, Hand-held shower, Raised toilet seat with rails Prior Level of Function Prior Function Level of [place]: Independent with ADLs and functional transfers, Independent with homemaking with ambulation Prior Functional Mobility: Independent without device, Independent with rollator (No AD inside the house. Rollator for long distances outside the home) Receives Help From: Friends (Pt reports her boyfriend can provide 24 hour care and states she has a friend coming to also provide assistance) ADL Assistance: Independent (Occasional assist getting in/out of tub) Homemaking Assistance: Independent Driving: Total Vision Basic Assessment Vision - Basic Assessment Current Vision: Wears glasses only for reading General Assessments Activity Tolerance Endurance: Stage II Stage II (METs 1.4-2.0) - Sittin-20 mins Activity Tolerance Comments: Pt able to tolerate all functional mobility tasks this date with no reports of lightheaded/dizziness. Mild lethargy post-op. Vitals WNL on RA Sensation Light Touch: No apparent deficits Sensation Comments: Denies numbness/tingling Proprioception Proprioception: No apparent deficits Perception Inattention/Neglect: Appears intact Initiation: Appears intact Motor Planning: Appears intact Perseveration: Not present Coordination Coordination and Movement Description: Mildly impaired to LLE post-op. Static Sitting Balance Static Sitting-Balance Support: Feet supported Static Sitting-Level of Assistance: Close supervision Dynamic Sitting Balance Dynamic Sitting-Balance Support: Feet supported Dynamic Sitting-Balance: Forward lean, Reaching for objects Dynamic Sitting Balance-Level of Assistance: Close supervision Dynamic Sitting-Comments: Pt able to maintain EOB sit while completing LBD tasks with OT Static Standing Balance Static Standing-Balance Support: Right upper extremity supported, Left upper extremity supported, With device Static Standing-Level of Assistance: Contact guard Static Standing-Comment/Number of Minutes: CGA 2/2 POD0. RW utilized throughout. Pt able to manage brief stand with no UE to adjust bottoms Dynamic Standing Balance Dynamic Standing-Balance Support: Right upper extremity supported, Left upper extremity supported, With device Dynamic Standing Balance-Level of Assistance: Contact guard Dynamic Standing-Comments: CGA 2/ POD0 Functional Assessments Bed Mobility Bed Mobility: Yes Bed Mobility 1 Bed Mobility From 1: Supine Bed Mobility Typ (more content not included)...[facility]10-13-2025 NoteOccupational Therapy Occupational Therapy Evaluation Patient Name: Rock Herrera : 1970 Today's Date: 05/31/2025 Start Time: 1156 Stop Time: 1218 Time Calculation (min): 22 min OT Evaluation Time Entry OT Evaluation (Moderate) Time Entry: 22 General Subjective: I'm tired right now. RN ok for pt to be seen, seen in PACU s/p L TKA. Pt agreeable to session. Pt completed functional tasks and functional ambulation. Pt planning to d/c home on this day and reports she will have assist at home as needed from boyfriend and friend. Pt returned to semi-fowlers with call light and needs in reach. RN aware Patient Summary: 54yoF seen in clinic with c/o L knee pain, severe tricompartmental OA. Pt with instability, deformity of L knee X5-6 years. Pt failed conservative tx. Seen POD 0, L TKA on 05/31/25 OT Diagnosis: Decreased indepednence in functional tasks s/p L TKA Problem List[1] Medical History[2] Surgical History[3] Precautions Precautions LE Weight Bearing Status: Left, WBAT Medical Precautions: TKA, fall risk, IV, telemetry, nerve block Post-Surgical Precautions: L TKA Pain Pain Assessment Pain Assessment: 0-10 Pain Score: 6 Pain Type: Acute pain, Surgical pain Pain Location: Knee Pain Orientation: Left Cognition Cognition Overall Cognitive Status: Within Functional Limits Arousal/Alertness: Delayed responses to stimuli Orientation Level: Oriented X4 Following Commands: Follows one step commands with increased time, Follows one step commands with repetition Safety Judgment: Good awareness of safety precautions Awareness of Errors: Good awareness of errors made Deficits: Fully aware of deficits Attention Span: Appears intact Memory: Appears intact Problem Solving: Assistance required to identify errors made Communication: Intact Cognition Comments: Pt lethargic post op, requires increased time but able to complete all tasks required during session General Assessment General Assessment Hearing: WFL Skin Integrity: Incision site covered. All other visualized areas intact Edema: Mild to L knee post-op Home Living Home Living Type of Home: Mobile home Lives With: Significant other Home Adaptive Equipment: Walker rolling, Rollator, Cane Home Layout: One level Home Access: Ramped entrance Bathroom Shower/Tub: Tub/shower unit Bathroom Toilet: Handicapped height Bathroom Equipment: Grab bars in shower, Tub transfer bench, Hand-held shower, Raised toilet seat with rails Prior Level of Function Prior Function Level of [place]: Independent with ADLs and functional transfers, Independent with homemaking with ambulation Prior Functional Mobility: Independent without device, Independent with rollator (no AD in house, Rollator in community) Receives Help From: Friends (boyfriend can provide 24hr care, pt also reports friend is coming to stay to assist) ADL Assistance: Independent (Pt reports occasional assist to get in/out of tub) Homemaking Assistance: Independent Driving: Total Prior IADLs Static Sitting Balance Static Sitting Balance Static Sitting-Balance Support: Unilateral upper extremity supported, No upper extremity supported, Feet supported Static Sitting-Level of Assistance: Close supervision Dynamic Sitting Balance Dynamic Sitting Balance Dynamic Sitting-Balance Support: Feet supported Dynamic Sitting-Balance: Forward lean, Reaching for objects, Reaching across midline Dynamic Sitting Balance-Level of Assistance: Close supervision Static Standing Balance Static Standing Balance Static Standing-Balance Support: Right upper extremity supported, Left upper extremity supported, With device, No upper extremity supported Static Standing-Level of Assistance: Contact guard Static Standing-Comment/Number of Minutes: pt able to briefly utilize sixto UEs to adjust bottoms upon initially sitting. Dynamic Standing Balance Dynamic Standing Balance Dynamic Standing-Balance Support: Right upper extremity supported, Left upper extremity supported, With device Dynamic Standing-Balance: Forward lean, Reaching for objects Dynamic Standing Balance-Level of Assistance: Contact guard Dynamic Standing-Comments: CGA for safety s/p OR ADL ADL Bathing Assistance: Minimal Bathing Deficit: Left lower leg including foot UE Dressing Assistance: Stand by LE Dressing Assistance: Minimal LE Dressing Deficit: Thread LLE into underwear (Pt required assist to thread, Able to manage over hips in standing with CGA.) Toileting Assistance with Device: Minimal Bed Mobility Bed Mobility Bed Mobility: Yes Bed Mobility 1 Bed Mobility From 1: Supine Bed Mobility Type 1: To and from Bed Mobility to 1: Short sit Level of Assistance 1: Contact guard Bed Mobility Comments 1: CGA for LLE management into/out of bed Transfers Transfers Ambulation comments: Pt completed functional ambulation in [place] (more content not included)...[facility]10-13-2025 NotePatient: Rock Herrera Procedure Summary Date: 05/31/25 Room / Location: [facility] OPERATING ROOM 02 / [facility] Operating Room Anesthesia Start: 730 Anesthesia Stop: Procedure: ROBOT-ASSISTED KNEE ARTHROPLASTY (Left: Knee) Diagnosis: Left knee pain, unspecified chronicity Primary osteoarthritis of both knees (Left knee pain, unspecified chronicity [M25.562]) (Primary osteoarthritis of both knees [M17.0]) Surgeons: Josseline Abad MD Responsible Provider: Uyen Liao MD Anesthesia Type: general, regional ASA Status: 3 Anesthesia Post Transport Note Transport to: PACU O2 Route: room air Patient Monitor: direct observation Transport: uneventful Patient condition is: [facility]Un[facility] Note Peripheral Block Patient location during procedure: pre-op Start time: 05/31/2025 7:14 AM End time: 05/31/2025 7:29 AM Reason for block: at surgeon's request and post-op pain management Staffing Performed: anesthesiologist Anesthesiologist: Uyen Liao MD Resident/TRAINING AND DEVELOPMENT SPECIALIST: PANDA Santos Preanesthetic Checklist Completed: patient identified, IV checked, site marked, risks and benefits discussed, surgical consent, monitors and equipment checked, pre-op evaluation and timeout performed Peripheral Block Patient position: sitting Prep: ChloraPrep Patient monitoring: continuous pulse ox Block type: adductor canal block Laterality: left Injection technique: single-shot Guidance: ultrasound guided Needle Needle type: short-bevel Needle gauge: 22 G Needle length: 2 in Needle localization: ultrasound guidance Medications Administered midazolam (VERSED) IV - intravenous 2 mg - 05/31/2025 7:14:00 AM fentaNYL (SUBLIMAZE) IV - intravenous 100 mcg - 05/31/2025 7:14:00 AM BUPivacaine (Marcaine) injection 0.5 % (5 mg/mL) - injection 100 mg - 05/31/2025 7:14:00 AM Assessment Injection assessment: negative aspiration for heme, no paresthesia on injection, incremental injection and local visualized surrounding nerve on ultrasound Paresthesia pain: none Heart rate change: noUnCleveland Clinic Mentor Hospital10-13-2025 NoteAirway Date/Time: 05/31/2025 7:45 AM Reason: elective Airway not difficult General Information and Staff Patient location during procedure: OR Anesthesiologist: Uyen Liao MD Resident/TRAINING AND DEVELOPMENT SPECIALIST/CAA: PANDA Santos Performed: resident/TRAINING AND DEVELOPMENT SPECIALIST/PANDA Patient Condition Indications for airway management: anesthesia Sedation level: deep Final Airway Details Preoxygenated: yes Final airway type: endotracheal airway Successful airway: ETT Cuffed: yes Successful intubation technique: video laryngoscopy Endotracheal tube insertion site: oral Blade: Bernstein Blade size: #3 ETT size (mm): 7.5 Cormack-Lehane Classification: grade I - full view of glottis Placement verified by: chest auscultation Measured from: lips ETT to lips (cm): 22 Number of attempts at approach: 1 Additional Comments Eyes taped after induction, before airway managementUnCleveland Clinic Mentor Hospital10-13-2025 NotePatient: Rock Herrera Procedure Information Date/Time: 05/31/25 07 Procedure: ROBOT-ASSISTED KNEE ARTHROPLASTY (Left: Knee) - [facility] NOTIFIED 05/24 Location: [facility] OPERATING ROOM 02 / [facility] Operating Room Surgeons: Josseline Abad MD Medical History[1] Relevant Problems Anesthesia (+) CELINE (obstructive sleep apnea) Cardiac clearance scanned to media on 05/07/25: patient cleared at this time for needed procedure with low risk Echo 10/2024: EF 60-65%, mild aortic/tricuspid regurg, mild pulmonary hypertension Cardiac Cath 2019 per PCP note: normal. Clinical information reviewed: Tobacco Allergies Meds Med Hx Surg Hx OB Status Fam Hx Soc Hx Physical Exam Airway Mallampati: II TM distance: >3 FB Neck ROM: full Cardiovascular - normal exam Dental (+) edentulous Pulmonary - normal exam Neurological Abdominal (+) obese Anesthesia Plan ASA 3 general and regional The patient is not a current smoker. Patient was not previously instructed to abstain from smoking on day of procedure. Patient did not smoke on day of procedure. Education provided regarding risk of obstructive sleep apnea. intravenous induction Anesthetic plan and risks discussed with patient. Plan discussed with CAA. Additional Equipment Requests [1] Past Medical History: Diagnosis Date ??? Agoraphobia ??? Allergic rhinitis ??? Anxiety ??? Arthritis ??? Chronic pain disorder ??? COPD (chronic obstructive pulmonary disease) ([facility]) ??? Coronary artery disease ??? Depression ??? Diabetes mellitus ([facility]) ??? Fibromyalgia, primary ??? GERD (gastroesophageal reflux disease) ??? Heart valve disease ??? Hyperlipidemia ??? Hypertension ??? Irritable bowel syndrome ??? Myocardial infarction ([facility]) ??? Obesity ??? Osteoarthritis ??? PTSD (post-traumatic stress disorder) ??? Sleep apneaUnCleveland Clinic Mentor Hospital10-13-2025 NoteCheck In completed. Warm blanket provided for comfort, call light with in reach, family at bedsideUnCleveland Clinic Mentor Hospital10-13-2025 NotePt escorted into bay 3. Instructed to remove all clothing and put on gownUnCleveland Clinic Mentor Hospital10-10-2025 History of Present illness Narrative* Robert Giron DO - 05/28/2025 12:58 PM EDT She is medically cleared for surgery. Note sent to surgeon. documented in this encounterDayton [facility]10-[facility]-2025 NotePt decided that she wants home health physical therapy instead of outpatient therapy. ELDON submitted referrals in [facility]. [facility] accept the pt's home health referral.[facility]10-09-2025 Note Pt having left knee surgery on 05/31. Pt wants to follow up with outpatient therapy services in [place], [place]. Pt requested to follow up with [facility]. ELDON faxed referral to [facility] in [place], [place].[facility] 05-27-2025 NoteSW followed up with [facility]. VALERIE has the pt's referral but hasn't contacted the pt yet. The first available appointment they have is on 06/09. [facility] will follow up with the pt for scheduling.[facility]10-08-2025 Miscellaneous Notes* Telephone Encounter - Ramona Silva CMA - 05/26/2025 12:02 PM EDT Anesthesiologist called from [facility] about pt pre- op Clearance. Her Surgery is scheduled May 31 note states you were waiting on EKG and Labs. Their fax is [phone]. * Telephone Encounter - Robert Giron DO - 05/26/2025 12:02 PM EDT Okay but I will need the labs and EKG results. They are still not in her chart * Telephone Encounter - Ramona Silva CMA - 05/26/2025 12:02 PM EDT The labs she had done yesterday at [facility]. The EKG is from the past. * Telephone Encounter - Ramona Silva CMA - 05/26/2025 12:02 PM EDT I called and got a hold of [facility] they will be sending over the labs via fax today. Also I calledTajacqueline and she had did the EKG in office with Cardiology with in the year. documented in this encounterSt [facility] HospitalMarqu[facility]10-08-2025 Telephone encounter Note* Telephone Encounter - Ramona Silva CMA - 05/26/2025 12:02 PM EDT Anesthesiologist called from [facility] about pt pre- op Clearance. Her Surgery is scheduled May 31 note states you were waiting on EKG and Labs. Their fax is [phone]. [facility]10-08-[facility] Telephone encounter Note* Telephone Encounter - Robert Giron DO - 05/26/2025 12:02 PM EDT Okay but I will need the labs and EKG results. They are still not in her chart [facility]10-08-2025 Telephone encounter Note* Telephone Encounter - Ramona Silva CMA - 05/26/2025 12:02 PM EDT The labs she had done yesterday at [facility]. The EKG is from the past. [facility]10-08-2025 Telephone encounter Note* Telephone Encounter - Ramona Silva CMA - 05/26/2025 12:02 PM EDT I called and got a hold of [facility] they will be sending over the labs via fax today. Also I calledTammy and she had did the EKG in office with Cardiology with in the year. [facility]10-06-2025 Amanda spoke with the patient for pre-operative education and discharge planning prior to her joint replacement surgery. The patient would like to discharge to home following her release from the hospital. She has 5 steps and a ramp to get into her home and once she is inside everything will remain on one floor. She will have support at home. She was given scripts for a rolling walker, raised toilet seat and shower chair. She would like [facility] physical therapy with [facility]. I have placed a referral and asked ELDON Sotomayor to assist.[facility]10-06-2025 Telephone encounter Note* Telephone Encounter - Damaris Rico - 05/24/2025 9:31 AM EDT T is calling today and said she is having Knee surgery 05/31/25 and needs a clearance letter. Please fax to Dr Chauhan office [phone] [facility] [phone] Miscellaneous Notes* Telephone Encounter - Damaris Rico - 05/24/2025 9:31 AM EDT T is calling today and said she is having Knee surgery 05/31/25 and needs a clearance letter. Please fax to Dr Chauhan office [phone] documented in this encounterDeaconess Incarnate Word Health [id number] History of Present illness Narrative* Robert Giron, DO - 05/20/2025 1:30 PM EDT Subjective Patient ID: Rock Herrera is a 54 y.o. female. Rock presents today for a preoperative clearance. She is going to have her left knee replaced at [facility] on May 31. She has been having significant pain. It is interfering with her quality of life. She has tried and failed conservative measures. She was told she had arthritis in her right kneeand also her left hip. She may need to have those replaced as well. She is using tramadol 3 times aday. She is wondering if she could increase it to 4 times a day since the pain is worse. She is going to schedule preop testing. She has no known coronary artery disease. She has COPD but quit smoking a couple months ago. She isbreathing better. She feels better overall. She uses albuterol as needed for shortness a breath. She does not use a maintenance inhaler. She sees pulmonology at [facility] . She has no recent illness. She can do 4 Mets of activity such as climb 2 flights of stairs or walk 2 city blocks without chest pain or shortness breath. She is also using alprazolam 1 mg 3 times a day for anxiety. The following portions of the patient's history were reviewed and updated as appropriate: allergies, current medications, past family history, past medical history, past social history, past surgicalhistory, problem list, and medication reconciliation was completed including current medication andpost discharge medication. Review of Systems Constitutional: Negative. Musculoskeletal: Positive for arthralgias, back pain and gait problem. Psychiatric/Behavioral: The patient is nervous/anxious. Objective Physical Exam Vitals reviewed. Constitutional: General: She is not in acute distress. Appearance: Normal appearance. She is not ill-appearing. HENT: Head: Normocephalic. Nose: Nose normal. Mouth/Throat: Mouth: Mucous membranes are moist. Eyes: General: No scleral icterus. Extraocular Movements: Extraocular movements intact. Conjunctiva/sclera: Conjunctivae normal. Cardiovascular: Rate and Rhythm: Normal rate and regular rhythm. Heart sounds: Normal heart sounds. No murmur heard. Pulmonary: Effort: Pulmonary effort is normal. No respiratory distress. Breath sounds: Normal breath sounds. No stridor. No wheezing, rhonchi or rales. Musculoskeletal: Cervical back: Neck supple. Right knee: Crepitus present. Tenderness present. Left knee: Crepitus present. Tenderness present. Right lower leg: No edema. Left lower leg: No edema. Neurological: General: No focal deficit present. Mental Status: She is alert. Gait: Gait abnormal (Antalgic). Psychiatric: Attention and Perception: Attention normal. Mood and Affect: Mood and affect normal. Speech: Speech normal. Behavior: Behavior normal. Behavior is cooperative. Thought Content: Thought content normal. Cognition and Memory: Cognition normal. Judgment: Judgment normal. Assessment/Plan Rock was seen today for ut/ total knee replacement. Diagnoses and all orders for this visit: Pre-operative clearance Rock presents today for preoperative clearance. She can do 4 Mets of activity and has no symptomsof angina. She had a cardiac catheterization in 2019 which was totally normal. We will await final determination until I see her EKG and lab work. Complex tear of medial meniscus of left knee, sequela - traMADoL (ULTRAM) 50 mg tablet; Take 1 tablet (50 mg total) by mouth every 6 (six) hours as needed for pain. She has chronic knee pain which is worsening. She isn't need of a total knee replacement. I am going to increase her tramadol to 4 a day. This will just be up until her surgery and then the surgeon will handle her postoperative pain. Essential hypertension Blood pressure at goal. Continue current regimen Generalized anxiety disorder Continue alprazolam. She is using high risk medication with benefit. Her benzodiazepine use is not new and she has not benzodiazepine naive. Chronic obstructive pulmonary disease, unspecified COPD type ([facility] Stable. Follow up with pulmonology as directed. Diabetes mellitus without complication ([facility]) Her last A1c was excellent at 5.3% in February. documented in this encounterDayton [facility] Medical Center10-02-2025 Miscellaneous Notes* Addendum Note - Robert Giron DO - 05/20/2025 1:30 PM EDTAddended by: ROBERT GIRON on: 05/20/2025 05:17 PM Modules accepted: Orders documented in this encounterDayton VA Medical Center10-02-2025 Note* Addendum Note - Robert Giron DO - 05/20/2025 1:30 PM EDTAddended by: ROBERT GIRON on: 05/20/2025 05:17 PM Modules accepted: Orders [facility]10-01-2025 Miscellaneous Notes* Telephone Encounter - Delmy Limon CNA - 05/19/2025 10:10 AM EDT Patient returns phone call regarding PT ordered at last visit. She reports she has not done PT as she had foot surgery and was recovering from that. She reports she will need a new order. She then reports she is having total knee replacement surgery soon and will be having PT for that. She decided to post pone her follow up for her neck pain with us and call to reschedule after she has recovered from knee surgery. She also reports her surgeon's office said they would give her 2 weeks of pain medicine following knee surgery and she would then need to call us for more pain medication after that. Informed her our providers do not typically prescribe post op medication. Understanding verbalized. Appointment cancelled documented in this encounterDayton VA Medical Center10-01-2025 Telephone encounter Note* Telephone Encounter - Delmy Limon CNA - 05/19/2025 10:10 AM EDT Patient returns phone call regarding PT ordered at last visit. She reports she has not done PT as she had foot surgery and was recovering from that. She reports she will need a new order. She then reports she is having total knee replacement surgery soon and will be having PT for that. She decided to post pone her follow up for her neck pain with us and call to reschedule after she has recovered from knee surgery. She also reports her surgeon's office said they would give her 2 weeks of pain medicine following knee surgery and she would then need to call us for more pain medication after that. Informed her our providers do not typically prescribe post op medication. Understanding verbalized. Appointment cancelled [facility] [employer] [phone] NoteOrthopedic Surgery Subjective Chief complaint: Chief Complaint Patient presents with Left Knee - Follow-up 05/05/25 Patient presents for follow-up evaluation of left knee pain in setting of left knee osteoarthritis. At last visit, along discussion was had with the patient regarding treatment options moving forward and she elected to proceed with robotic assisted left total knee arthroplasty with cemented components. She presents today for reevaluation and assessment. In the interim, she continues to endorse moderate to severe left knee pain that is significantly inhibiting her activities of daily living. She remains interested in proceeding with left total knee arthroplasty. Endorses history of diabetes, Parkinson's, fibromyalgia, CAD, heart valve disease, myocardial infarction. She states that she quit smoking since last visit. 09/28/24 54-year-old female presents for follow-up visit [...] Heart valve disease Hyperlipidemia Hypertension Myocardial infarction ([facility]) Sleep apnea Objective General: There is no height or weight on file to calculate BMI. No acute distress, comfortable Respiratory: Unlabored breathing [...] reviewed: X-rays of the left knee joint was reviewed which reveals: Osteoarthritic changes appreciated to the left knee joint. Most significant joint space narrowing appreciated medially. There is osteophytic changes subchondral sclerosis of multiple compartments. MRI scan from her recent outside institution which shows the patient has severe maltracking lateral degenerative's of the left knee joint along with subchondral cyst formation with subchondral sclerosis noted. Positive bone marrow edema noted as well as complex degenerative tear of the menisci (more content not included)... [facility]09-16-2025 Hospital Discharge instructions Patient Education 05/04/2025 15:17:54 Dietary Guidelines to Help Prevent Kidney Stones Dietary Guidelines to Help Prevent Kidney Stones Kidney stones are deposits of minerals and salts that form inside your kidneys. Your risk of developing kidney stones may be greater depending on your diet, your lifestyle, the medicines you take, and whether you have certain medical conditions. Most people can lower their risks of developing kidney stones by following these dietary guidelines. Your dietitian may give you more specific instructions depending on your overall health and the type of kidney stones you tend to develop. What are tips for following this plan? Reading food labels Choose foods with no salt added or low-salt labels. Limit your salt (sodium) intake to less than 1,500 mg a day. Choose foods with calcium for each meal and snack. Try to eat about 300 mg of calcium at each meal.Foods that contain 200 500 mg of calcium a serving include: ?8 oz (237 mL) of milk, dklregn-rcwjaoubowqb-yaglh milk, and calcium- fortifiedfruit juice. Calcium-fortified means that calcium has been added to these drinks. ?8 oz (237 mL) of kefir, yogurt, and soy yogurt. ?4 oz (114 g) of tofu. ?1 oz (28 g) of cheese. ?1 cup (150 g) of dried figs. ?1 cup (91 g) of cooked broccoli. ?One 3 oz (85 g) can of sardines or mackerel. Most people need 1,000 1,500 mg of calcium a day. Talk to your dietitian about how much calcium is recommended for you. Shopping Buy plenty of fresh fruits and vegetables. Most people do not need to avoid fruits and vegetables, even if these foods contain nutrients that may contribute to kidney stones. When shopping for convenience foods, choose: ?Whole pieces of fruit. ?Pre-made salads with dressing on the side. ?Low-fat fruit and yogurt smoothies. Avoid buying frozen meals or prepared deli foods. These can be high in sodium. Look for foods with live cultures, such as yogurt and kefir. Choose high-fiber grains, such as whole-wheat breads, oat bran, and wheat cereals. Cooking Do not add salt to food when cooking. Place a salt shaker on the table and allow each person to addtheir own salt to taste. Use vegetable protein, such as beans, textured vegetable protein (TVP), or tofu, instead of meat inpasta, casseroles, and soups. Meal planning Eat less salt, if told by your dietitian. To do this: ?Avoid eating processed or pre-made food. ?Avoid eating fast food. Eat less animal protein, including cheese, meat, poultry, or fish, if told by your dietitian. To dothis: ?Limit the number of times you have meat, poultry, fish, or cheese each week. Eat a diet free of meat at least 2 days a week. ?Eat only one serving each day of meat, poultry, fish, or seafood. ?When you prepare animal proteins, cut pieces into small portion sizes. For most meat and fish, oneserving is about the size of the palm of your hand. Eat at least five servings of fresh fruits and vegetables each day. To do this: ?Keep fruits and vegetables on hand for snacks. ?Eat one piece of fruit or a handful of berries with breakfast. ?Have a salad and fruit at lunch. ?Have two kinds of vegetables at dinner. You may be told to limit foods that are high in a substance called oxalate. These include: ?Spinach (cooked), rhubarb, beets, sweet potatoes, and Japanese chard. ?Peanuts. ?Potato chips, nepali fries, and baked potatoes with skin on. ?Nuts and nut products. ?Chocolate. If you regularly take a diuretic medicine, make sure to eat at least 1 or 2 servings of fruits or vegetables that are high in potassium each day. These include: ?Avocado. ?Banana. ?Kent, prune, carrot, or tomato juice. ?Baked potato. ?Cabbage. ?Beans and split peas. Lifestyle Drink enough fluid to keep your urine pale yellow. This is the most important thing you can do. Spread your fluid intake throughout the day. If you drink alcohol: ?Limit how much you have to: ?0 1 drink a day for women who are not . ?0 2 drinks a day for men. ?Know how much alcohol is in your drink. In the [place] one drink equals one 12 oz bottle of beer (355 mL), one 5 oz glass of wine (148 mL), or one 1 oz glass of hard liquor (44 mL). Lose weight if told by your health care provider. Work with your dietitian to find an eating plan and weight loss strategies that work best for you. General information Talk to your health care provider and dietitian about taking daily supplements. Depending on your health and the cause of your kidney stones, you may be told: ?Do not take high-dose supplements of vitamin C (1,000 mg a day or more). ?To take a calcium supplement. ?To take a daily probiotic supplement. ?To take other supplements such as magnesium, fish oil, or vitamin B6. Take uijw-oeq-roeplal and prescription medicines only as told by your health care provider. These include supplements. What foods should I limit? Limit your intake of the following foods, or eat them as told by your dietitian. Vegetables Spinach. Rhubarb. Beets. Canned vegetables. Pickles. Olives. Baked potatoes with skin. Grains Wheat bran. Baked goods. Salted crackers. Cereals high in sugar. Meats and other proteins Nuts. Nut butters. Large portions of meat, poultry, or fish. Salted, precooked, or cured meats, such as sausages, meat loaves, and hot dogs. Dairy Cheeses. Beverages Regular soft drinks. Regular vegetable juice. Seasonings and condiments Seasoning blends with salt. Salad dressings. Soy sauce. Ketchup. Barbecue sauce. Other foods Canned soups. Canned pasta sauce. Casseroles. Pizza. Lasagna. Frozen meals. Potato chips. Guyanese fries. The items listed above may not be a complete list of foods and beverages you should limit. Contact a dietitian for more information. What foods should I avoid? Talk to your dietitian about specific foods you should avoid based on the type of kidney stones youhave and your overall health. Fruits Grapefruit. The item listed above may not be a complete list of foods and beverages you should avoid. Contact adietitian for more information. Summary Kidney stones are deposits of minerals and salts that form inside your kidneys. You can lower your risk of kidney stones by making changes to your diet. The most important thing you can do is drink enough fluid. Drink enough fluid to keep your urine pale yellow. Talk to your dietitian about how much calcium you should have each day, and eat less salt and animal protein as told by your dietitian. This information is not intended to replace advice given to you by your health care provider. Make sure you discuss any questions you have with your health care provider. Document Revised: 11/15/2022 Document Reviewed: 11/15/2022 [employer] Patient Education 2023 [employer]Sentient. Follow Up Care 03/29/2025 13:27:30 With:LILI WALSH, Donaldo Moreira, URL Address: [facility] [address] , [place] [address]- When: Unknown [facility] 09-16-2025 NotePatient Education Nephrology Dietary Guidelines to Help Prevent Kidney Stones Kidney stones are deposits of minerals and salts that form inside your kidneys. Your risk of developing kidney stones may be greater depending on your diet, your lifestyle, the medicines you take, and whether you have certain medical conditions. Most people can lower their risks of developing kidney stones by following these dietary guidelines. Your dietitian may give you more specific instructions depending on your overall health and the type of kidney stones you tend to develop. What are tips for following this plan? Reading food labels ??? Choose foods with no salt added or low-salt labels. Limit your salt (sodium) intake to lessthan 1,500 mg a day. ??? Choose foods with calcium for each meal and snack. Try to eat about 300 mg of calcium at each meal. Foods that contain 200?500 mg of calcium a serving include: ? 8 oz (237 mL) of milk, xrwmffm-qdvqfjoshkgz-nvbkv milk, and calcium- fortifiedfruit juice. Calcium-fortified means that calcium has been added to these drinks. ? 8 oz (237 mL) of kefir, yogurt, and soy yogurt. ? 4 oz (114 g) of tofu. ? 1 oz (28 g) of cheese. ? 1 cup (150 g) of dried figs. ? 1 cup (91 g) of cooked broccoli. ? One 3 oz (85 g) can of sardines or mackerel. Most people need 1,000?1,500 mg of calcium a day. Talk to your dietitian about how much calcium is recommended for you. Shopping ??? Buy plenty of fresh fruits and vegetables. Most people do not need to avoid fruits and vegetables, even if these foods contain nutrients that may contribute to kidney stones. ??? When shopping for convenience foods, choose: ? Whole pieces of fruit. ? Pre-made salads with dressing on the side. ? Low-fat fruit and yogurt smoothies. ??? Avoid buying frozen meals or prepared deli foods. These can be high in sodium. ??? Look for foods with live cultures, such as yogurt and kefir. ??? Choose high-fiber grains, such as whole-wheat breads, oat bran, and wheat cereals. Cooking ??? Do not add salt to food when cooking. Place a salt shaker on the table and allow each person toadd their own salt to taste. ??? Use vegetable protein, such as beans, textured vegetable protein (TVP), or tofu, instead of meat in pasta, casseroles, and soups. Meal planning ??? Eat less salt, if told by your dietitian. To do this: ? Avoid eating processed or pre-made food. ? Avoid eating fast food. ??? Eat less animal protein, including cheese, meat, poultry, or fish, if told by your dietitian. To do this: ? Limit the number of times you have meat, poultry, fish, or cheese each week. Eat a diet free of meat at least 2 days a week. ? Eat only one serving each day of meat, poultry, fish, or seafood. ? When you prepare animal proteins, cut pieces into small portion sizes. For most meat and fish, one serving is about the size of the palm of your hand. ??? Eat at least five servings of fresh fruits and vegetables each day. To do this: ? Keep fruits and vegetables on hand for snacks. ? Eat one piece of fruit or a handful of berries with breakfast. ? Have a salad and fruit at lunch. ? Have two kinds of vegetables at dinner. ??? You may be told to limit foods that are high in a substance called oxalate. These include: ? Spinach (cooked), rhubarb, beets, sweet potatoes, and Japanese chard. ? Peanuts. ? Potato chips, nepali fries, and baked potatoes with skin on. ? Nuts and nut products. ? Chocolate. ??? If you regularly take a diuretic medicine, make sure to eat at least 1 or 2 servings of fruits or vegetables that are high in potassium each day. These include: ? Avocado. ? Banana. ? [place], prune, carrot, or tomato juice. ? Baked potato. ? Cabbage. ? Beans and split peas. Lifestyle ??? Drink enough fluid to keep your urine pale yellow. This is the most important thing you can do.Spread your fluid intake throughout the day. ??? If you drink alcohol: ? Limit how much you have to: ? 0?1 drink a day for women who are not . ? 0?2 drinks a day for men. ? Know how much alcohol is in your drink. In the [place] one drink equals one 12 oz bottle of beer (355 mL), one 5 oz glass of wine (148 mL), or one 1? oz glass of hard liquor (44 mL). ??? Lose weight if told by your health care provider. Work with your dietitian to find an eating plan and weight loss strategies that work best for you. General information ??? Talk to your health care provider and dietitian about taking daily supplements. Depending on your health and the cause of your kidney stones, you may be told: ? Do not take high-dose supplements of vitamin C (1,000 mg a day or more). ? To take a calcium supplement. ? To take a daily probiotic supplement. ? To take other supplements such as magnesium, fish oil, or vitamin B6. ??? Take juxk-gdc-wugsnkp and prescription medicines only as told by your health (more content not included)...[facility]09-15-2025 Miscellaneous Notes* Telephone Encounter - Simi Petty CMA - 05/03/2025 9:34 AM EDT Patient wanted to know if it could be increased documented in this encounterSt [facility] HospitalKUBOO [id number] Telephone encounter Note* Telephone Encounter - Simi Petty CMA - 05/03/2025 9:34 AM EDT Patient wanted to know if it could be increased [facility] [employer] [id number] Radiology Diagnostic study [facility] [place] [address] CT Scan Report Signed Patient: Rock Herrera MR#: [id number] : 1970 Acct:[id number] Age/Sex: 54 / F ADM Date: 5 Loc: CT Room: Type: [facility] Attending Dr: CARRILLO Boyd APRN Copies to: Valarie Herrera APRN, ACNP-BC~ Ordering Provider: Valarie Herrera APRN, ACNP-BC Date of Service: 04/13/25 CT/CT [...] nondilated. No pericardial effusion. No lymphadenopathy. The esophagusis grossly unremarkable. Lungs: No focal consolidation, pneumothorax [...] Jr., D.ODanica 04/13/2025 2:14 PM Dictation Location: [place] [address] Transcribed By: [facility] 04/13/25 1414 Dictated By: Champ Hobson Jr, DO 04/13/25 1413 Signed By: 04/13/25 1414 [facility]08-05-2025 Telephone encounter Note* Telephone Encounter - Caridad De Leon - 03/23/2025 11:32 AM EDT Patient called stating she now has both surgery clearances and would like to know when she can schedule surgery for her L TKA ? [phone] [facility] [id number] Miscellaneous Notes* Telephone Encounter - Caridad De Leon - 03/23/2025 11:32 AM EDT Patient called stating she now has both surgery clearances and would like to know when she can schedule surgery for her L TKA ? [phone] documented in this encounterDeaconess Incarnate Word Health [id number] NoteNurse Consultation Note Reason for Visit fu Physical Exam Vitals [...] 50,000 intl units (1.25 mg) oral capsule, 716[address] International_Unit= 1 cap(s), Oral, Saturday Allergies Neurontin [...] Protein Urine Dipstick: Negative (03/17/25 15:23:00) Specific [place] Urine Dipstick: 1.015 (03/17/25 15:23:00) Urine Appearance Urine Dipstick: Clear (03/17/25 15:23:00) Urine Color Urine Dipstick: Yellow (03/17/25 15:23:00) Urobilinogen Urine Dipstick: Normal 0.2-1 EU/dl (03/17/25 15:23:00) pH Urine Dipstick: 5 (03/17/25 15:23:00)[facility]07-30-2025 Hospital Discharge instructions Patient Education 03/17/2025 16:32:14 [...] Follow these instructions at home: Medicines Take aydm-lam-iuahass and prescription medicines only as told by [...] or the blood stops without treatment. Take hebq-pyh-yqahvrn and prescription medicines only as told by your health care provider. Drink enough fluid to keep your urine pale yellow. This information is not intended to replace advice given to you by your health care provider. Make sure you discuss any questions you have with your health care provider. Document Revised: 04/05/2021 Document Reviewed: 04/05/2021 [employer] Patient Education 2023 Gl[employer]Sentient. Follow Up Care 03/16/2025 09:06:54 With:Sofiya Villa PA-C, QASIML Address: When: Unknown Comments:Schedule cystoF/U in 3 months w/ P[facility] [place] 07-30-2025 NotePatient Education Urology Hematuria, Adult Hematuria is blood in the urine. Blood may be visible in the urine, or it may be identified with a test. This condition can be caused by infections of the bladder, urethra, kidney, or prostate. Otherpossible causes include: ??? Kidney stones. ??? Cancer [...] these instructions at home: Medicines ??? Take vdyd-rbm-dltroob and prescription medicines only as told by your health care provider. ??? If you were prescribed an antibiotic medicine, take it as told by your health care provider. Donot stop taking the antibiotic even if you [...] kidney stone, follow your health care provider's instructionsabout straining your urine to catch the stone. [...] Tell your health care provider about any changesor any new symptoms. ??? It is up [...] the blood stops without treatment. ??? Take fula-nqx-cacirzr and prescription medicines only as told by your health care provider. ??? Drink enough fluid to keep your urine pale yellow. This information is not intended to replace advice given to you by your health care provider. Make sure you discuss any questions you have with your health care provider. Document Revised: 04/05/2021 Document Reviewed: 04/05/2021 [employer] Patient Education ? 2023 [employer]oSentient.[facility] 03-16-2025 History of Present illness Narrative* Robert Giron, DO - 03/16/2025 2:00 PM EDT Subjective Patient ID: Rock Herrera is a 54 y.o. female. Earline presents today for a controlled substance visit rechecked. She was recently started on tramadol 1 3 times a day for severe osteoarthritis of her knee and torn cartilage of her knee. She is going to need a knee replacement soon. She saw the community outreach specialist who wants medical clearance from her pathologist assistant and wood and wood products labourer 1st. She has not had any recent illness. She can climb a flightof stairs and walk a city block without [...] medication andpost discharge medication. Review of Systems Objective Physical [...] Urine As above Diabetes mellitus without complication ([facility]) - POCT Hemoglobin A1c Her A1c is great at 5.3%. Continue metformin for now. Chronic obstructive pulmonary disease, unspecified COPD type ([facility]) Stable. Follow up with specialist as directed. Anxiety She is using high risk medication with benefit. It does help improve quality of life. She does not have any adverse effects. Risks and benefits of medication and use with tramadol discussed. She doeshave naloxone available at home. Continue current regimen. Check urine for presence of medication and drugs of abuse. documented in this encounterDay[facility] History of Present illness Narrative* Maya Lynn, EXPANSION JOINT BUILDER-GRAPHIC ART SALES REPRESENTATIVE - 03/10/2025 9:30 AM EDT Images from the original note were [...] foods. Her last colonoscopy was 01/17/2023 at [facility] significant for hemorrhoids and 1 small tubular [...] Date Anxiety Anxiety Arthritis Asthma Bipolar disorder ([facility] Carpal tunnel syndrome Chronic kidney disease stage 3 COPD (chronic obstructive pulmonary disease) ([facility] Depression Diabetes mellitus ([facility]) Fibromyalgia GERD (gastroesophageal reflux disease) Heart abnormality 01/24/2020 leaky valve going for testing Hyperlipidemia Hypertension Joint pain Low back pain Mitral valve prolapse Myocardial infarction ([facility]) Neck pain Osteoarthritis Osteoporosis Sleep apnea no cpap Spinal stenosis Vertigo Visual impairment glasses Past Surgical History: Procedure Laterality Date APPENDECTOMY ARTHROSCOPY WITH LATERAL MENISCECTOMY KNEE Right 06/06/2022 Performed by Kurt Chapman MD at [facility] BREAST FIBROADENOMA SURGERY CARDIAC CATHETERIZATION 12/25/2019 normal CARPAL TUNNEL RELEASE Left 08/03/2024 CATARACT EXTRACTION Bilateral CHONDROPLASTY, SYNOVECTOMY Right 06/06/2022 Performed by Kurt Chapman MD at [facility] COLONOSCOPY 2020 in CORRECTION HAMMER TOE Right EPIDURAL BLOCK INJECTION HYSTERECTOMY one ovary remains INJECTION BLOCK NERVE KNEE Left Genicular Left 06/05/2024 Performed by Avi Maharaj MD at [facility] MEDIAL BRANCH NERVE BLOCK: bilat L45 51 Bilateral 09/25/2019 Performed by Avi Maharaj MD at [facility] INJECTION SI JOINT Bilateral SI Joint Bilateral 03/25/2020 Performed by Avi Maharaj MD at [facility] LAPAROSCOPIC CHOLECYSTECTOMY N/A 03/15/2017 Performed by Karlos Quinones DO at [facility] NEUROMA SURGERY PLANTAR FASCIA RELEASE Bilateral SINUS [...] inhaler, Inhale 2 puffs every 6 (six) hoursas needed for wheezing., Disp: , Rfl: alcohol swabs (ALCOHOL PADS) pads, medicated, APPLY 1 PAD TOPICALLY EVERY 14 (FOURTEEN) DAYS. CLEANAREA PRIOR TO PLACING SENSOR, Disp: 40 each, Rfl: 0 alendronate (FOSAMAX) 70 mg tablet, , Disp: , Rfl: ALPRAZolam (XANAX) 1 mg tablet, Take 1 tablet (1 mg total) by mouth 3 (three) times a day as neededfor anxiety., Disp: 90 tablet, Rfl: 2 ammonium [...] 1 strip by other route as needed forhigh blood sugar., Disp: 100 strip, Rfl: 3 [...] mg total) by mouth every 6 (six) hoursas needed for itching or allergies. MAY CAUSE DROWSINESS. HOLD hydroxyzine while taking this medication., Disp: 15 capsule, Rfl: 0 EPINEPHrine (EPIPEN) 0.3 mg/0.3 mL auto-injector, Inject 0.3 mL (0.3 mg total) into the appropriatemuscle as needed (As needed for allergic reaction) [...] THE EVENING, Disp: 30 tablet, Rfl: 11 tlcxlwcx-vizg-EI-calcium &mins (THERAGRAN-M) 9 mg iron-400 mcg tablet, [...] ROUTE TWICE A DAY, Disp: 15 g, Rfl:1 omeprazole (PriLOSEC) 40 mg capsule, TAKE ONE [...] 10 min Stress: Stress Concern Present (01/24/2023) [employer] [place] [employer] - Occupational Stress Questionnaire Feeling of Stress : To some extent Social Connections: Socially Isolated (01/24/2023) Social Connection and Isolation Panel [NHANES] Frequency of Communication with Friends and Family: More than three times a week Frequency of Social Gatherings with Friends and Family: More than three times a week Attends Jain Services: Never Active Member of Clubs or Organizations: No Attends Club or Organization Meetings: Never Marital Status: Interpersonal Safety: Unknown (11/03/2024) Received from [facility] Humiliation, Afraid, Rape, and Kick questionnaire Fear [...] Avoid greasy foods. Drink 64 oz of waterdaily. High-fiber diet. Fiber supplement. Will refer to GI for consideration of anal rectal manometry. Evaluation included: Preparing to see the patient (e.g., review of tests) Obtaining and/or reviewing separately obtained history Performing a medically appropriate examination and/or evaluation Counseling and educating the patient/family/caregiver Referring and communicating with other health daycare provider Incontinence of feces with fecal urgency [R15.9, R15.2] YI MUELLER [facility] [place] This note was created with the assistance of a speech recognition program. While intending to generate a timely document that accurately reflects the content of the visit, no guarantee can be provided that every grammatical or spelling mistake has been or will be identified or corrected. Thank you for your understanding. YI Mueller 03/10/25 0949 documented in this encounterDayton [facility] Medical Center07-22-2025 History of Present illness Narrative* Jr. Jim Lerma, DO - 03/09/2025 10:30 AM EDT Images from the original note were not included. HISTORY OF PRESENT ILLNESS: EST PT Rock Herrera is an 54 y.o. @ female. EST PT WITH DR ALCANTARA- KIRKECK LT KNEE- PER DR ALCANTARA'S LAST NOTE [...] HS- NO PAIN MEDS She sees a pathologist assistant and wood and wood products labourer. ALLERGIES: Allergies Allergen Reactions Codeine Hives and [...] Behavior, Mental Status Change, other, Vomiting hallucinate [place] Saline Nasal Gel [Aloe-Sodium Chloride] Facial numbness/tongue [...] (ZYRTEC) 10 mg, Daily Continuous Glucose Sensor (MlogStyle Lilliam 2 Sensor) misc USE DIRECTED AND [...] 1 DOSE ergocalciferol (Vitamin D2) 1.25 MG (97936 UT) capsule 1 capsule, Weekly furosemide (LASIX) [...] 75 mg, Oral, Daily PRN nystatin (Mycostatin) 407107 UNIT/ML suspension TAKE 5ML BY MOUTH FOUR [...] grade: normal Valgus stress grade: normal Medial Batr test: positive Vitals: There is no height [...] her family physician as well as her pathologist assistant for her comorbidities. We'll see her back [...] of surgery. The patient understands the risks ofsaid treatment. We have discussed both surgical and [...] including the patient's age and longevity of pro sthesis, usual postoperative course, and possible need for revision in the future, and leg length inequality postoperatively were discussed at length. We have discussed with the patient that this is a major orthopedic procedure. We discussed that the patient may require more than the average 30 MEDlimited and may require greater than 7 days narcotic treatment postoperatively. Therefore, patient's narcotic usage will be tailored on an individual basis. If this patient at the time of surgery hasany of the following: Morbidities including but not limited to history of falling, cognitive impairment, BMI greater than 30, end-stage renal disease, respiratory failure, heart failure, kidney failure, liver failure, diabetes, cardiac event in the last year, sleep apnea, disorder, excessive tobacco use, if at the time of surgery the patient is greater than 80 years old, or the patient requires discharge to a fpc facility, the patient may require to have additional inpatient hospital stay days following the surgery. Physical therapy is contraindicated in this patient''s case because of the mcww-ss-rsrn articulation of the patient's knee.. Questions answered in laymen terms at the bedside. The diagnosis, home exercise plan and any ongoing restrictions/ recommendations reviewed. If unable to be reached in office, I recommend evaluation at nearest Emergency Room if any symptoms worsened or new symptoms develop for requiring urgent evaluation. documented in this encounterDeaconess Incarnate Word Health [id number] History of Present illness Narrative* Martin Jerome Harsh, DPM - 03/04/2025 1:10 PM EDT Patient: Rock Herrera : 1970 PCP: Robert Giron MD SUBJECTIVE This is a 54 y.o. female that presents today 7wks /p right 2nd interspace neurectomy with right 2nddigit flexor tenotomy and total permanent nail avulsion to the right 2nd toe Pt denies n/f/v/c and has diminished pain to post op site. Pt states that they have been weight-bearing to post op foot Pt presents today for follow up. Patient is type 2 diabetic Patient also presents today for follow up of right ankle sprain and has not been using walking bootand anti-inflammatories and ice with finishing PT with [...] Behavior, Mental Status Change, other, Vomiting hallucinate [place] Saline Nasal Gel [Aloe-Sodium Chloride] Facial numbness/tongue [...] Medical History: Diagnosis Date Asthma ([facility]) Bipolar disorder ([facility]) Bunion COPD (chronic obstructive pulmonary disease) ([facility]) Depression Diabetes ([facility]) Fallen arches Fibromyalgia GERD (gastroesophageal reflux disease) Hammer toe Hypertension Kidney stones DC (myocardial infarction) ([facility]) Migraine Mitral valve prolapse Downey's neuroma Onychomycosis Osteoarthritis Oxygen dependent Plantar fasciitis Sleep apnea SVT (supraventricular tachycardia) ([facility]) Tinea pedis Medications: Current Outpatient [...] nebulization every 6 (six) hours.,Disp: , Rfl: Alcohol Swabs (Global Alcohol Prep [...] Continuous Glucose Sensor (FreeStyle Lilliam 2 Sensor) [facility], USE DIRECTED AND CHANGE EVERY 14 DAYS, Disp: , Rfl: Continuous Glucose Transmitter (Dexcom G6 transmitter) [facility], 1 UNIT BY MISCELLANEOUS ROUTE EVERY 3 (THREE) MONTHS., Disp: , Rfl: dilTIAZem CD (Cardizem CD) 120 MG 24 hr capsule, Take 120 mg by mouth Daily, Disp: , Rfl: EPINEPHrine (Epipen) 0.3 MG/0.3ML injection syringe, INJECT 0.3MG INTO THE APPROPRIATE MUSCLE NEEDED FOR ALLERGIC REACTION UP TO 1 DOSE, Disp: , Rfl: ergocalciferol (Vitamin D2) 1.25 MG (67745 UT) capsule, Take 1 capsule by mouth [...] the evening., Disp: , Rfl: nystatin (Mycostatin) [id number] UNIT/ML suspension, TAKE 5ML BY MOUTH FOUR TIMES A DAY (MORNING, NOON,EVENING, BEDTIME) FOR 5 DAYS., Disp: , Rfl: [...] IN THE MORNING AND IN THE EVENING, Disp:, Rfl: Ventolin HFA 108 (90 Base) MCG/ACT [...] long-term current use of insulin ([facility]) PLAN Continue with normal shoe gear Recommended [...] pain Martin Arango DPM documented in this encounterDeaconess Incarnate Word Health [id number] History of Present illness Narrative* Carlos Sanchez MD - 02/25/2025 2:40 PM EDT Images from the original note [...] in all four extremities, including at least boathouse keeper, finger abductors, biceps, triceps, deltoid, toe flexors [...] headache frequency will be monitored. A prescription forNurtec will be sent to [facility] in [facility]. 2. Insomnia. She reports difficulty falling asleep and has previously tried tizanidine and cyproheptadine without success. Ambien caused severe insomnia, and primidone led to weight loss. Silenor will be prescribed to help with sleep, and the prescription will be sent to [facility] in [facility]. She is advised that ZzzQuil is safe to take with her current medications. 3. Ajovy for prevention 4. Nurtec for abortive treatments vs Ubrelvy 5 Doxepin 3 mg at bed for sleep 6. I counseled the patient on the possible side effects and interactions of medications. This clinical note was created utilizing Unomy documentation system. All information has beenthoroughly reviewed, corrected as necessary, and authenticated by the provider to ensure accuracy and completeness. On occasion, Unomy documentation system erroneously drops words or replaces aspoken word with a similar sounding word. Please notify with any questions or concerns regarding this clinical note. documented in this encounterDeaconess Incarnate Word Health [id number] History of Present illness Narrative* Robert Santiago Rivas, DO - 02/24/2025 11:30 AM EDT Images from the original note were not included. Subjective Patient ID: Rock Herrera is a 54 y.o. female. Rock presents today for a follow-up from the emergency room. She is still having left sided chestwall pain. She was told she has a [...] sort-either arthroscopy or knee replacement. It is af fecting her quality of life. It is painful to do ADLs and IADLs. She needs a new glucometer and test strips. She is also due for a colonoscopy. She has a history of colon polyps. She would like to go to [facility] have that done. The specialists that she had before that did it is no longer practicingin the area. She is willing to go to a new specialist. She her Dr. Quinones goes to [facility] and requested him. The following portions of [...] type - [facility] - [place], [place]; Future Refer to surgeon for colonoscopy to screen for colon cancer Diabetes mellitus without complication ([facility]) - Discontinue: blood-glucose meter (TRUE METRIX GLUCOSE [...] needed for opioid reversal. documented in this encounterDayton [facility]06-[facility]25 Telephone encounter Note* Telephone Encounter - Odette Jacobs - 02/08/2025 12:58 PM EDT She called noting have been sick for 5 days now and cx her last PT today for R shoulder. I noted that and she said she'd like to recover and I informed of her PT eval for R ankle is 02/11/25. [facility] [id number] Miscellaneous Notes* Telephone Encounter - Odette Jacobs - 02/08/2025 12:58 PM EDT She called noting have been sick for 5 days now and cx her last PT today for R shoulder. I noted that and she said she'd like to recover and I informed of her PT eval for R ankle is 02/11/25. documented in this encounterDeaconess Incarnate Word Health [id number] History of Present illness Narrative* Martin Arango DPM - 02/04/2025 1:00 PM EDT Patient: Rock Herrera : 1970 PCP: Robert Giron MD SUBJECTIVE This is a 54 y.o. female that presents today 35 days s/p right 2nd interspace neurectomy with [id number] digit flexor tenotomy and total permanent nail avulsion to the right 2nd toe Pt denies n/f/v/c and has diminished pain to post op site. Pt states that they have been weight-bearing to post op foot Pt presents today for follow up. Patient is type 2 diabetic Patient also presents today for follow up of right ankle sprain and has been using walking boot andanti-inflammatories and ice with negative improvement. Patient rates [...] Behavior, Mental Status Change, other, Vomiting hallucinate [place] Saline Nasal Gel [Aloe-Sodium Chloride] Facial numbness/tongue [...] Medical History: Diagnosis Date Asthma ([facility]) Bipolar disorder ([facility]) Bunion COPD (chronic obstructive pulmonary disease) ([facility]) Depression Diabetes ([facility]) Fallen arches Fibromyalgia GERD (gastroesophageal reflux disease) Hammer toe Hypertension Kidney stones DC (myocardial infarction) ([facility]) Migraine Mitral valve prolapse Downey's neuroma Onychomycosis Osteoarthritis Oxygen dependent Plantar fasciitis Sleep apnea SVT (supraventricular tachycardia) ([facility]) Tinea pedis Medications: Current Outpatient [...] nebulization every 6 (six) hours.,Disp: , Rfl: Alcohol Swabs (Global Alcohol Prep [...] Continuous Glucose Sensor (FreeStyle Lilliam 2 Sensor) [facility], USE DIRECTED AND CHANGE EVERY 14 DAYS, Disp: , Rfl: Continuous Glucose Transmitter (Dexcom G6 transmitter) [facility], 1 UNIT BY MISCELLANEOUS ROUTE EVERY 3 (THREE) MONTHS., Disp: , Rfl: dilTIAZem CD (Cardizem CD) 120 MG 24 hr capsule, Take 120 mg by mouth Daily, Disp: , Rfl: EPINEPHrine (Epipen) 0.3 MG/0.3ML injection syringe, INJECT 0.3MG INTO THE APPROPRIATE MUSCLE NEEDED FOR ALLERGIC REACTION UP TO 1 DOSE, Disp: , Rfl: ergocalciferol (Vitamin D2) 1.25 MG (38114 UT) capsule, Take 1 capsule by mouth [...] the evening., Disp: , Rfl: nystatin (Mycostatin) [id number] UNIT/ML suspension, TAKE 5ML BY MOUTH FOUR TIMES A DAY (MORNING, NOON,EVENING, BEDTIME) FOR 5 DAYS., Disp: , Rfl: [...] IN THE MORNING AND IN THE EVENING, Disp:, Rfl: Ventolin HFA 108 (90 Base) MCG/ACT [...] therapy Martin Arango DPM documented in this [facility]06-16-2025 Telephone encounter Note* Telephone Encounter - Martin Arango DPM - 02/01/2025 8:05 AM EDT Pt is past 35 days post op with no refill due to pain management contract with us [facility] [id number] Miscellaneous Notes* Telephone Encounter - Martin Arango DPM - 02/01/2025 8:05 AM EDT Pt is past 35 days post op with no refill due to pain management contract with us documented in this [facility]06-13-2025 Telephone encounter Note* Telephone Encounter - Odette Arlene - 01/29/2025 10:31 AM EDT She called noting she has been getting sick this morning and is in the need to cx PT for today. I reminded and she confirmed her next PT 02/02. [facility] [id number] Miscellaneous Notes* Telephone Encounter - Odette Botelloker - 01/29/2025 10:31 AM EDT She called noting she has been getting sick this morning and is in the need to cx PT for today. I reminded and she confirmed her next PT 02/02. documented in this encounterNOMS [id number] History of Present illness Narrative* Gricelda Hammond, PT - 01/25/2025 2:00 PM EDT Images from the original [...] to be instructed in home exercise program. Materials Specialist Goals: To be met in 10 weeks [...] Please sign below. Date: documented in this [facility]06-09-2025 Telephone encounter Note* Telephone Encounter - Macie Nick - 01/25/2025 9:08 AM EDT Pt asking for pain med refill please, send to [facility] in [place] [facility] [id number] Miscellaneous Notes* Telephone Encounter - Maciequeenie Romero - 01/25/2025 9:08 AM EDT Pt asking for pain med refill please, send to [facility] in [place] documented in this encounterDeaconess Incarnate Word Health [id number] Hospital Discharge instructions Patient Education 01/21/2025 12:27:23 Kidney Stones, Voet-sp-Bwnb Kidney Stones Kidney stones are rock-like masses [...] Follow these instructions at home: Medicines Take iokr-fsh-mbotyti and prescription medicines only as told by [...] Kidney Foundation (NKF): kidney.org Urology Care Foundation (F): urologyhealth.org Contact a doctor if: You have [...] provider. Document Revised: 03/29/2023 Document Reviewed: 03/29/2023 BookingNest Patient Education 2023 [employer]Sentient. Follow Up Care 01/05/2025 11:26:46 With:[facility] Address: When: Unknown Comments:For procedure as scheduled. [facility] 06-05-2025 Evaluation + Plan note Diagnostic Tests Pending * Urine Cytology ([facility]) 01/21/25 [facility] 06-05-2025 NotePatient Education Urology Kidney Stones Kidney stones are [...] these instructions at home: Medicines ??? Take vbmp-jho-wtjxbhe and prescription medicines only as told by [...] provider. Document Revised: 03/29/2023 Document Reviewed: 03/29/2023 Book[employer]Nest Patient Education ? 2023 [employer] 01-14-2025 History of Present illness Narrative* Martin Arango, SALLIE - 01/14/2025 4:20 PM EDT Patient: Rock Herrera : 1970 PCP: Robert Giron MD SUBJECTIVE This is a 54 y.o. female that presents today 15 days s/p right 2nd interspace neurectomy with eslux8qf digit flexor tenotomy and total permanent nail [...] sprain and has been using walking boot andanti-inflammatories and ice with some improvement. Allergies: Allergies [...] Behavior, Mental Status Change, other, Vomiting hallucinate [place] Saline Nasal Gel [Aloe-Sodium Chloride] Facial numbness/tongue [...] disorder Bunion COPD (chronic obstructive pulmonary disease) ([facility]) Depression ([facility]) Diabetes ([facility]) Fallen arches Fibromyalgia GERD (gastroesophageal reflux disease) Hammer toe Hypertension ([facility]) Kidney stones DC (myocardial infarction) ([facility]) Migraine Mitral valve prolapse Downey's neuroma Onychomycosis Osteoarthritis Oxygen dependent Plantar fasciitis Sleep apnea SVT (supraventricular tachycardia) ([facility]) Tinea pedis Medications: Current Outpatient [...] nebulization every 6 (six) hours.,Disp: , Rfl: Alcohol Swabs (Global Alcohol Prep [...] Continuous Glucose Sensor (FreeStyle Lilliam 2 Sensor) [facility], USE DIRECTED AND CHANGE EVERY 14 DAYS, Disp: , Rfl: Continuous Glucose Transmitter (Dexcom G6 transmitter) [facility], 1 UNIT BY MISCELLANEOUS ROUTE EVERY 3 (THREE) MONTHS., Disp: , Rfl: dilTIAZem CD (Cardizem CD) 120 MG 24 hr capsule, Take 120 mg by mouth Daily, Disp: , Rfl: EPINEPHrine (Epipen) 0.3 MG/0.3ML injection syringe, INJECT 0.3MG INTO THE APPROPRIATE MUSCLE NEEDED FOR ALLERGIC REACTION UP TO 1 DOSE, Disp: , Rfl: ergocalciferol (Vitamin D2) 1.25 MG (65622 UT) capsule, Take 1 capsule by mouth [...] the evening., Disp: , Rfl: nystatin (Mycostatin) [id number] UNIT/ML suspension, TAKE 5ML BY MOUTH FOUR TIMES A DAY (MORNING, NOON,EVENING, BEDTIME) FOR 5 DAYS., Disp: , Rfl: [...] IN THE MORNING AND IN THE EVENING, Disp:, Rfl: Ventolin HFA 108 (90 Base) MCG/ACT [...] p.r.n. Martin Arango DPM documented in this [facility]05-20-2025 Telephone encounter Note* Telephone Encounter - Odette Jacobs - 01/05/2025 2:40 PM EDT PT Eval 01/08/25 w/ Jose Hammond PT. [facility] [id number] Miscellaneous Notes* Telephone Encounter - Odette Jacobs - 01/05/2025 2:40 PM EDT PT Eval 01/08/25 w/ Jose Hammond PT. * Telephone Encounter - Odette Jacobs - 12/30/2024 12:36 PM EDT She called noting she had a nerve block procedure today done on her foot. She said her mobility is very limited right now and would like to hold off till she is able to walk and move more freely w/o assistance. * Telephone Encounter - Odette Jacobs - 12/29/2024 11:05 AM EDT Tried to contact to schedule PT Gemmaal for R shoulder; 30 visits / no copay. But had to lm requesting a call back to do so. documented in this [facility]05-17-2025 Telephone encounter Note* Telephone Encounter - Martin Arango DPM - 01/02/2025 10:30 AM EDT Pt did not receive yesterday rx, phone call from [facility] and will refill [place] [id number] Miscellaneous Notes* Telephone Encounter - Martin Arango DPM - 01/02/2025 10:30 AM EDT Pt did not receive yesterday rx, phone call from [facility] and will refill documented in this encounterNat[place] [id number] Telephone encounter Note* Telephone Encounter - Martin Arango DPM - 01/01/2025 12:02 PM EDT Send prescription of Percocet 10 to [facility] [place] [id number] Miscellaneous Notes* Telephone Encounter - Martin Arango DPM - 01/01/2025 12:02 PM EDT Send prescription of Percocet 10 to [facility] [place] documented in this encounterDeaconess Incarnate Word Health [id number] Telephone encounter Note* Telephone Encounter - Odette Jacobs - 12/30/2024 12:36 PM EDT She called noting she had a nerve block procedure today done on her foot. She said her mobility is very limited right now and would like to hold off till she is able to walk and move more freely w/o assistance. [facility] [id number] Telephone encounter Note* Telephone Encounter - Odette Jacobs - 12/29/2024 11:05 AM EDT Tried to contact to schedule PT Eval for R shoulder; 30 visits / no copay. But had to lm requesting a call back to do so. [facility] [id number] History of Present illness Narrative* Martin Arango, SALLIE - 12/17/2024 1:10 PM EDT Patient: Rock Herrera : 1970 [...] right 2nd interdigital space possible stump neuroma withsteroid injection with negative improvement. Patient rates pain [...] Behavior, Mental Status Change, other, Vomiting hallucinate [place] Saline Nasal Gel [Aloe-Sodium Chloride] Facial numbness/tongue [...] History: Past Medical History: Diagnosis Date Asthma ([facility]) Bipolar disorder ([facility]) Bunion COPD (chronic obstructive pulmonary disease) ([facility]) Depression ([facility] Diabetes ([facility]) Difficulty walking Fallen arches Fibromyalgia [...] time., Disp: , Rfl: Continuous Blood Gluc Exercise Science Internship (Dexcom G6 political cartoonist) device, 1 UNIT YEARLY, Disp: , Rfl: Continuous Blood Gluc Sensor (Dexcom G6 Sensor) [facility], USE 1 UNIT DIRECTED AND CHANGE EVERY 10 DAYS, Disp: , Rfl: ergocalciferol (Vitamin D2) 1.25 MG (28150 UT) capsule, Take 1 capsule by mouth [...] oral route., Disp: , Rfl: nystatin (Mycostatin) [id number] UNIT/ML suspension, TAKE 5ML FOUR TIMES A [...] chest pain or shortness of breath. Positive historyof tachycardia Musculoskeletal: Positive history of generalized osteoarthritis [...] pedal pulses to bilateral feet Neuro: 5.07 Pawling Gina monofilament test positive to digits and [...] of the right hallux and right 3rdtoe positive pain on palpation to right 2nd intermetatarsal space with negative Lee sign ASSESSMENT 1. Downey neuroma, right 2. Acquired deformity of right toe 3. Paronychia, toe, right 4. Diabetes 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 polyneuropathy, with long-term current use of insulin ([facility]) PLAN Patient given prescription for [...] alternatives, benefits, post op complications and termite inspector expectations were discussed including but not limited to: infection,bone infection,wound dehiscence hardware failure and irritation,wound dehiscence,delay union/mal union/non union of bone. RSDS,neuroma,duty limitations,DVT/PE, DC,nerve damage, scar, loss of sensation, swelling. Pt [...] 2024 Martin Arango DPM documented in this encounterDeaconess Incarnate Word Health [id number] History of Present illness Narrative* Robert Giron, - 12/15/2024 3:30 PM EDT Subjective Patient ID: Rock Herrera [...] medication andpost discharge medication. Review of Systems Objective Physical [...] substance agreement signed. Diabetes mellitus without complication ([facility]) - Microalbumin - Albumin: Creatinine Urine Ratio; [...] mg total) before bedtime. documented in this encounterDayton [facility] Center04-29-2025 History of Present illness Narrative* SHARYN Reagan - 12/15/2024 9:45 AM EDT [facility] [address] [place] [address] Patient: Rock Herrera Sex: female : 1970 Age: 54 y.o. PCP: Robert Giron DO 12/15/2024 Rock Herrera is here for a(n) post procedure follow up left genicular nerve block with no relief. Patient is here for increased neck, back ,and bilateral knee pain. Patient would like to focus onher neck pain today. Currently rates pain a [...] knee 9/10. The pain is moderate (to severe).The pain has been Worsening since onset. Associated [...] (PT 5 years ago no relief) for thesymptoms. Back Pain This is a chronic problem. [...] position, standing and twisting. Stiffness is present Leslie. Associated symptoms include leg pain (posterior BLE), numbness (bilateral knees, RUE) and tingling (bilateral knees, RUE). Risk factors include poor posture, sedentary lifestyle and lack of exercise. She has tried analgesics, bed rest, heat, home exercises and ice for the symptoms. The effect of pain on patient's ADLS: Moderate Impairment. Past Medical History: Diagnosis Date Anxiety Anxiety Arthritis Asthma Bipolar disorder ([facility] Carpal tunnel syndrome Chronic kidney disease stage 3 COPD (chronic obstructive pulmonary disease) ([facility]) Depression Diabetes mellitus ([facility]) Fibromyalgia GERD (gastroesophageal reflux disease) Heart abnormality 01/24/2020 leaky valve going for testing Hyperlipidemia Hypertension Joint pain Low back pain Mitral valve prolapse Myocardial infarction ([facility]) Neck pain Osteoarthritis Osteoporosis Sleep apnea no cpap Spinal stenosis Vertigo Visual impairment glasses Past Surgical History: Procedure Laterality Date APPENDECTOMY ARTHROSCOPY WITH LATERAL MENISCECTOMY KNEE Right 06/06/2022 Performed by Kurt Chapman MD at [facility] BREAST FIBROADENOMA SURGERY CARPAL TUNNEL RELEASE Left 08/03/2024 CATARACT EXTRACTION Bilateral CHONDROPLASTY, SYNOVECTOMY Right 06/06/2022 Performed by Kurt Chapman MD at [facility] COLONOSCOPY 2019 in CORRECTION HAMMER TOE Right EPIDURAL BLOCK INJECTION HYSTERECTOMY one ovary remains INJECTION BLOCK NERVE KNEE Left Genicular Left 06/05/2024 Performed by Avi Maharaj MD at [facility] INJECTION MEDIAL BRANCH NERVE BLOCK: bilat L45 51 Bilateral 09/25/2019 Performed by Avi Maharaj MD at [facility] INJECTION SI JOINT Bilateral SI Joint Bilateral 03/25/2020 Performed by Avi Maharaj MD at [facility] LAPAROSCOPIC CHOLECYSTECTOMY N/A 03/15/2017 Performed by Karlos Quinones DO at [facility] NEUROMA SURGERY PLANTAR FASCIA RELEASE Bilateral SINUS [...] 10 min Stress: Stress Concern Present (01/24/2023) [employer] [place] [employer] - Occupational Stress Questionnaire Feeling of Stress : To some extent Social Connections: Socially Isolated (01/24/2023) Social Connection and Isolation Panel [NHANES] Frequency of Communication with Friends and Family: More than three times a week Frequency of Social Gatherings with Friends and Family: More than three times a week Attends Jain Services: Never Active Member of Clubs or Organizations: No Attends Club or Organization Meetings: Never Marital Status: Interpersonal Safety: Unknown (11/03/2024) Received from [facility] Humiliation, Afraid, Rape, and Kick questionnaire Fear [...] Side effects, and possible interactions of these medicationswere reviewed and the medication agreement has been discussed, agreed upon, and signed. The patientunderstands compliance concerns and the requirement of pill counts and drug screens while taking medications prescribed by this clinic. Cervical spine xray Imaging/Diagnostic Testing - It is felt that additional diagnostic testing is necessary to further evaluate the patients currentpain pathology. For this reason, we will order [...] for the condition being treated. This may i nclude modalities of comfort including moist heat, ultrasound, [...] monitoring for toxicity We do not currently prescribeany controlled substance from this practice. Treatment plans [...] would also help these symptoms. The patient isoptimistic about the treatment plan we have laid [...] SHARYN Reagan 12/15/24 1508 documented in this encounterDayton VA Medical Center04-17-2025 History of Present illness Narrative* Martin Arango, DPM - 12/03/2024 11:50 AM EDT Patient: Rock Herrera : 1970 [...] right 2nd interdigital space possible stump neuroma withsteroid injection with negative improvement. Patient rates pain [...] Behavior, Mental Status Change, other, Vomiting hallucinate [place] Saline Nasal Gel [Aloe-Sodium Chloride] Facial numbness/tongue [...] History: Past Medical History: Diagnosis Date Asthma ([facility]) Bipolar disorder ([facility]) Bunion COPD (chronic obstructive pulmonary disease) ([facility]) Depression ([facility]) Diabetes ([facility]) Difficulty walking Fallen arches Fibromyalgia Hammer toe Kidney stones Migraine ([facility]) Mitral valve prolapse Downey's neuroma [...] time., Disp: , Rfl: Continuous Blood Gluc Exercise Science Internship (Dexcom G6 political cartoonist) device, 1 UNIT YEARLY, Disp: , Rfl: Continuous Blood Gluc Sensor (Dexcom G6 Sensor) [facility], USE 1 UNIT DIRECTED AND CHANGE EVERY 10 DAYS, Disp: , Rfl: ergocalciferol (Vitamin D2) 1.25 MG (29034 UT) capsule, Take 1 capsule by mouth [...] oral route., Disp: , Rfl: nystatin (Mycostatin) [id number] UNIT/ML suspension, TAKE 5ML FOUR TIMES A [...] pedal pulses to bilateral feet Neuro: 5.07 Pawling Gina monofilament test positive to digits and [...] of the right hallux and right 3rdtoe positive pain on palpation to right 2nd intermetatarsal space with negative Lee sign ASSESSMENT 1. Downey neuroma, right 2. Diabetes 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 polyneuropathy, with long-term current use of insulin ([facility]) 3. Acquired deformity of right toe PLAN Discussed conservative and surgical treatment options for patient today including postoperative time frame and surgical procedure in detail. Patient may continue with conservative treatments including etao-vld-auhkfno anti- inflammatories and other treatments suggested today. Patient may want to be s cheduled for surgical intervention in the near future. Patient have a right 2nd interspace neurectomy with stump neuroma excision with right 2nd toe flexor tenotomy and total permanent nail avulsion to right 2nd digit nail Patient to continue with oral anti - inflammatories as needed for pain and recommended OTC medications such as tylenol or Ibuprofen Martin Arango DPM documented in this encounterDeaconess Incarnate Word Health [id number] History of Present illness Narrative* Martin Arango DPM - 11/19/2024 10:40 AM EDT Patient: Rock Herrera : 1970 PCP: Robert Grion MD SUBJECTIVE Patient presents today with complaints [...] previous neurectomy in the past and denies anytreatment besides orthotics Pt is dm2 Allergies: Allergies [...] Behavior, Mental Status Change, other, Vomiting hallucinate [place] Saline Nasal Gel [Aloe-Sodium Chloride] Facial numbness/tongue [...] History: Past Medical History: Diagnosis Date Asthma ([facility]) Bipolar disorder ([facility]) Bunion COPD (chronic obstructive pulmonary disease) (CMS/HCC) [...] time., Disp: , Rfl: Continuous Blood Gluc Exercise Science Internship (Dexcom G6 political cartoonist) device, 1 UNIT YEARLY, Disp: , Rfl: Continuous Blood Gluc Sensor (Dexcom G6 Sensor) [facility], USE 1 UNIT DIRECTED AND CHANGE EVERY 10 DAYS, Disp: , Rfl: ergocalciferol (Vitamin D2) 1.25 MG (85707 UT) capsule, Take 1 capsule by mouth [...] oral route., Disp: , Rfl: nystatin (Mycostatin) [id number] UNIT/ML suspension, TAKE 5ML FOUR TIMES A [...] pedal pulses to bilateral feet Neuro: 5.07 Pawling Gina monofilament test positive to digits and [...] of the right hallux and right 3rdtoe Positive pain on palpation to right 2nd intermetatarsal space with negative Lee sign DIAGNOSTIC ULTRASOUND REPORT: Verbal order for ultrasound today The 2ndwebspace of the right foot were scanned today using and 12 MHz linear probe in the transverse and sagital planes, concentrating on the interspace. Images were obtained. FINDINGS: The intermetatarsal space was identified using ultrasound. A transverse view and its examination atthe metatarsal head level demonstrates a discrete and well defined round hypo-echogenic mass in theweb space. IMPRESSION: US findings indicated a right foot neuroma and most likely stump neuroma ASSESSMENT 1. Acquired deformity of right toe 2. Diabetes 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 polyneuropathy, with long-term current use of insulin ([facility]) 3. Downey neuroma, right PLAN Discussed conservative and surgical treatment options for patient today including postoperative time frame and surgical procedure in detail. Patient may continue with conservative treatments including vbaz-tng-usnmdoq anti- inflammatories and other treatments suggested today. Patient may want to be s cheduled for surgical intervention in the near future. [...] solution Martin Arango DPM documented in this encounterDeaconess Incarnate Word Health [id number] History of Present illness Narrative* Carlos Sanchez MD - 11/11/2024 1:20 PM EDT Images from the original note were not included. CHIEF COMPLAINT REASON FOR VISIT : HPI: Rock Herrera is a 54 y.o. female who presents for a follow up. She states headaches are down to 2 a month. She states after she takes the ajovy within about 4 days she does end up with a migraine. She states that [employer] usually does work for her. [employer] goes to [employer]. She states she is not sleeping that well. MIGARAINES -She states her headaches are better. -2 days after Ajovy she gets a migraine -He has had 6 migraines since lat visit -She states she is still getting a couple headaches 1-2 times a week. -[employer] works well -prior to Ajovy she has [...] DAYS Continuous Glucose Transmitter (Dexcom G6 transmitter) [facility] 1 UNIT BY MISCELLANEOUS ROUTE EVERY 3 (THREE) MONTHS. dilTIAZem CD (CARDIZEM CD) 120 mg, Daily EPINEPHrine (Epipen) 0.3 MG/0.3ML injection syringe INJECT 0.3MG INTO THE APPROPRIATE MUSCLE NEEDED FOR ALLERGIC REACTION UP TO 1 DOSE ergocalciferol (Vitamin D2) 1.25 MG (98342 UT) capsule 1 capsule, Weekly furosemide (LASIX) [...] 25 mg, 4 times daily nystatin (Mycostatin) [id number] UNIT/ML suspension TAKE 5ML BY MOUTH FOUR [...] Behavior, Mental Status Change, other, Vomiting hallucinate [place] Saline Nasal Gel [Aloe-Sodium Chloride] Facial numbness/tongue [...] SCREEN: Past Medical History: Diagnosis Date Asthma ([facility]) Bipolar disorder ([facility]) Bunion COPD (chronic obstructive pulmonary disease) (CMS/HCC) Depression (CMS/HCC) Diabetes (CMS/HCC) Fallen arches Fibromyalgia GERD (gastroesophageal reflux disease) Hammer toe Hypertension (CMS/HCC) Kidney stones DC (myocardial infarction) (CMS/HCC) Migraine (CMS/HCC) Mitral valve [...] pb surgery OTHER SURGICAL HISTORY rt 2,3,4 AL REVISE ULNAR NERVE AT WRIST ulnar nerve [...] Not at risk (11/03/2024) Received from [facility] PHQ-2 Patient Health Questionnaire-2 Score: 0 [...] in all four extremities, including at least boathouse keeper, finger abductors, biceps, triceps, deltoid, toe flexors [...] by mouth at bedtime documented in this encounterDeaconess Incarnate Word Health [id number] Miscellaneous Notes* Telephone Encounter - Simi Petty CMA - 11/09/2024 9:21 AM EDT Patient is having a procedure done on her foot is it still ok to have this done. * Telephone Encounter - Robert Giron DO - 11/09/2024 9:21 AM EDT Probably. What is she having done? * Telephone Encounter - Simi Petty CMA - 11/09/2024 9:21 AM EDT It sounded like a bone spur. * Telephone Encounter - Robert Giron DO - 11/09/2024 9:21 AM EDT Yes. I did not see any preop clearance form to sign * Telephone Encounter - Simi Petty CMA - 11/09/2024 9:21 AM EDT LM via VM documented in this encounterDayton VA Medical Center03-24-2025 Telephone encounter Note* Telephone Encounter - Simi Petty CMA - 11/09/2024 9:21 AM EDT Patient is having a procedure done on her foot is it still ok to have this done. [facility]03-24-2025 Telephone encounter Note* Telephone Encounter - Robert Giron DO - 11/09/2024 9:21 AM EDT Probably. What is she having done? [facility]03-24-2025 Telephone encounter Note* Telephone Encounter - Simi Petty CMA - 11/09/2024 9:21 AM EDT It sounded like a bone spur. [facility]03-24-2025 Telephone encounter Note* Telephone Encounter - Robert Giron DO - 11/09/2024 9:21 AM EDT Yes. I did not see any preop clearance form to sign [facility] [id number] Telephone encounter Note* Telephone Encounter - Simi Petty CMA - 11/09/2024 9:21 AM EDT LM via VM [facility] [id number] Note Attestation signed by Lan Rubi MD [...] well-healed. No drainage or erythema. Patient is still runner to palpation at the base of her right hand. She is nontender over cubital tunnel incision. She is still runner over proximal upper arm. - Reasonable post-surgical [...] Kiser MD Orthopaedic Surgery, PGY-4 11/03/24 2:02 PMK[facility]03-10-2025 History of Present illness Narrative* Robert Giron, DO - 10/26/2024 3:30 PM EDT Subjective Patient ID: Rock Herrera is a 54 y.o. female. Rock presents today for an anxiety recheck but also wants to discuss a test that was done at homeby her insurance company. She had ABIs done [...] orders for this visit: Peripheral arterial disease ([facility]) - Vas art doppler lwr [...] tissue from lying on the skin that willprevent the rash from recurring. Overweight She has had a gradual weight loss. She was congratulated and encouraged to continue. It is benefitting her overall health. documented in this encounterCorey HospitalTGS Knee Innovations [facility] [id number] Miscellaneous Notes* Telephone Encounter - Simi Petty CMA - 10/22/2024 12:52 PM EST Patient called to get her lidocaine ointment refilled and sent to [facility] * Telephone Encounter - Robert Giron DO - 10/22/2024 12:52 PM EST She was on a Lidoderm patch not ointment. They are not going to cover it for a patch so she should get Salonpas 4% lidocaine patches [id number]. documented in this encounterCorey HospitalTGS Knee Innovations [facility] [id number] Telephone encounter Note* Telephone Encounter - Simi Petty CMA - 10/22/2024 12:52 PM EST Patient called to get her lidocaine ointment refilled and sent to [facility]ent03-06-2025 Telephone encounter Note* Telephone Encounter - Robert Giron DO - 10/22/2024 12:52 PM EST She was on a Lidoderm patch not ointment. They are not going to cover it for a patch so she should get Salonpas 4% lidocaine patches whzd-epu-jnnustn. mValent02-24-2025 Evaluation note* Diagnosis Onset Date Resolution Status Admit Date COPD (chronic obstructive pulmonary dise ase) acuteFebruary 2024 2:50pmDiastolic dysfunctionacuteFebruary 2024 2:50pmNicotine dependence, cigarettes, uncomplicatedacuteFebruary 2024 2:50pm [facility] Work Phone: [phone]) 620-630702-11-2025 Telephone encounter Note* Telephone Encounter - Odette [...] PT / or if OT is needed. [facility] [id number] Miscellaneous Notes* Telephone Encounter - Odette Jacobs [...] hold-off. I indicated her last PT was 2/ and being contacted prior 30 days out [...] will contact later 09/29. documented in this encounterNOSt. Louis VA Medical CenterBnujmsnypp95-16-1244 NoteOrthopedic Surgery Subjective Chief complaint: Chief Complaint [...] stiffness, significant with (more content not included)... [facility]02-06-2025 Telephone encounter Note* Telephone Encounter - Odette [...] no hearback I will contact later 09/29. [facility] [id number] Note Attestation signed by Lan Rubi MD [...] hand. These symptoms has also affected her boathouse keeper strength and she has found herself dropping [...] Heart valve disease Hyperlipidemia Hypertension Myocardial infarction ([facility]) Sleep apnea Objective General: Body mass index [...] Belcher DO PGY-3 Physical Medicine and Rehabilitation [facility]01-30-2025 History of Present illness Narrative* Gricelda Hammond, [...] to be instructed in home exercise program. Snf Goals: To be met in 10 weeks Goal 1: Pt to report independence and compliance with home program. Goal 2: Pt to achieve 4+/5 strength left knee flexion and extension to assist with functional mobility and ADL's. Goal 3: Pt to score no less than 40/80 on LEFS indicating improved QOL. Goal 4: Pt to complete Five Time Sit to coding educator less than 12.0 seconds with arms across [...] Please sign below. Date: documented in this encounterDeaconess Incarnate Word Health [id number] History of Present illness Narrative* Robert Giron DO - 09/15/2024 3:30 PM EST Subjective Patient [...] going to have a hip replacement in [place] and will need a pre-op clearance The [...] or non compliance. Diabetes mellitus without complication ([facility]) - Hemoglobin A1c; Future Check A1c Essential hypertension - Comprehensive metabolic panel; Future BP at goal-even low. Check CMP Mixed hyperlipidemia - Lipid panel; Future Check lipids Medication management - Drug Screen, Urine; Future Check urine for presence of medication and DOA. Chronic obstructive pulmonary disease, unspecified COPD type ([facility]) Stable. Continue current regimen Current smoker Encouraged to stop smoking. <3 minutes spent discussing documented in this encounterDayton VA Medical Center01-28-2025 Telephone encounter Note* Telephone Encounter - Odette Jacobs - 09/15/2024 10:48 AM EST She called noting diarrhea and not feeling well; cx PT today. I reminded and she confirmed 09/17/24. [facility] [id number] Miscellaneous Notes* Telephone Encounter - Odette Jacobs - 09/15/2024 10:48 AM EST She called noting diarrhea and not feeling well; cx PT today. I reminded and she confirmed 09/17/24. documented in this encounterDeaconess Incarnate Word Health [id number] Rock Herrera 1970 F Date Provider Department [facility]20[facility] No family history on fileK[facility]tering Health [facility]01-17-2025 Telephone encounter Note* Telephone Encounter - Odette Jacobs - 09/04/2024 9:39 AM EST Called back and asked if she would be able to do the exercises involved w/ her treatment; and she said whenever she walks she feels a significant burn. Per Carlotta, said if unable to cx today and cont on next week. She said she'll be here next week. [facility] [id number] Miscellaneous Notes* Telephone Encounter - Odette Jacobs [...] wait till next week? documented in this encounterDeaconess Incarnate Word Health SystemRtyrtgsevh07-41-6573 Telephone encounter Note* Telephone Encounter - Odette Jacobs - 09/04/2024 9:31 AM EST She called noting she had fallen yesterday and her knee is burning today. She asked if she should come to her 2:30 PT today (rs today from cx of 09/03) or wait till next week? [facility] SystemHpoxwpxaax62-89-9476 Telephone encounter Note* Telephone Encounter - Odette Jacobs - 09/03/2024 8:51 AM EST She called noting not feeling well and due to the weather would like to cx PT today. I offered a move down on time or move to tomorrow; she rs PT 09/04. [facility] Health [id number] Miscellaneous Notes* Telephone Encounter - Odette Jacobs - 09/03/2024 8:51 AM EST She called noting not feeling well and due to the weather would like to cx PT today. I offered a move down on time or move to tomorrow; she rs PT 09/04. documented in this encounterDeaconess Incarnate Word Health [id number] History of Present illness Narrative* Gricelda Hammond, [...] to be instructed in home exercise program. Snf Goals: To be met in 10 weeks Goal 1: Pt to report independence and compliance with home program. Goal 2: Pt to achieve 4+/5 strength left knee flexion and extension to assist with functional mobility and ADL's. Goal 3: Pt to score no less than 40/80 on LEFS indicating improved QOL. Goal 4: Pt to complete Five Time Sit to coding educator less than 12.0 seconds with arms across [...] Please sign below. Date: documented in this encounterDeaconess Incarnate Word Health [id number] Evaluation + Plan note Extracted from:Title:Pain Managment Follow upAuthor:Artie NORRIS, AmandaDate: 08/26/24 Impression and Plan Patient is a 54-year-old [...] Date:01/05/2025 01:00:00 PM Scheduled Provider:SHERI JIMENES PA-C Location:[facility] Appointment Type:URO Office Visit [facility] 01-08-2025 NoteConsultation Note Patient: ROCK HERRERA Age: [...] stool, # 120 tab(s), Refills(s) 6, Pharmacy: [facility], 162, cm, 03/30/20 10:05:00 EDT, Height/Length Dosing, 74.2, kg, 03/30/20 10:05:00 EDT, Weight Dosing carvedilol 25 mg Tab: 25 mg = 1 tab(s), Oral, BID, # 60 tab(s), Refills(s) 5, Pharmacy: [facility], 163, cm, 03/05/24 15:26:00 EDT, Height/Length Dosing, 72.8, kg, 03/05/24 15:26:00 EDT, Weight Dosing diltiazem CD 120 mg/24 hours Cap-ER: 120 mg = 1 cap(s), Oral, Daily, # 30 cap(s), Refills(s) 5, Pharmacy: [facility], 163, cm, 01/01/24 11:13:00 EDT, Height/Length Dosing, 75.6, kg, 12/31/23 13:01:00 EDT, Weight Dosing naltrexone 1.5 mg oral capsule: See Instructions, take one tablet daily, # 30 tab(s), Refills(s) 0,Pharmacy: [facility], 163, cm, 03/05/24 15:26:00 EDT, Height/Length Dosing, 72.8, kg, 03/05/24 15:26:00 EDT, Weight Dosing solifenacin 10 mg Tab: 10 mg = 1 tab(s), Oral, Daily, # 30 tab(s), Refills(s) 11, Pharmacy: [facility], 163, cm, 08/13/24 13:14:00 EST, [...] QID, PRN Dizziness m (more content not included)...[facility] CenterComment on above: Result Comment: Electronically Signed By: Cady Alva PA-C\.br\Date and Time Signed: 08/26/24 12:56 [id number] NoteOrthopedic Surgery 08/03/2024 Revision To Submuscular Transposition, [...] see her back in the clinic 4 wks.[facility] 08-17-2024 NoteOrthopedic Surgery Subjective Chief complaint: Chief [...] her strengthening of the (more content not included)...[facility]12-23-2024 History of Present illness Narrative* Jena Vaz NP - 08/10/2024 2:26 PM EST Referral for neuropsych/creyos memory testing placed and sent to patient for completion. documented in this encounterDeaconess Incarnate Word Health [id number] History of Present illness Narrative* Carlos Sanchez [...] mg, Every 24 hours Continuous Glucose Sensor (TOSA ([employer])yle Lilliam 2 Sensor) [facility] USE DIRECTED AND CHANGE EVERY 14 DAYS Continuous Glucose Transmitter (Dexcom G6 transmitter) [facility] 1 UNIT BY MISCELLANEOUS ROUTE EVERY 3 (THREE) MONTHS. dilTIAZem CD (CARDIZEM CD) 120 mg, Daily EPINEPHrine (Epipen) 0.3 MG/0.3ML injection syringe INJECT 0.3MG INTO THE APPROPRIATE MUSCLE NEEDED FOR ALLERGIC REACTION UP TO 1 DOSE ergocalciferol (Vitamin D2) 1.25 MG (14837 UT) capsule 1 capsule, Weekly furosemide (LASIX) [...] 75 mg, Oral, Daily PRN nystatin (Mycostatin) [id number] UNIT/ML suspension TAKE 5ML BY MOUTH FOUR [...] Behavior, Mental Status Change, other, Vomiting hallucinate [place] Saline Nasal Gel [Aloe-Sodium Chloride] Facial numbness/tongue [...] SCREEN: Past Medical History: Diagnosis Date Asthma ([facility]) Bipolar disorder (CMS/HCC) Bunion COPD (chronic obstructive pulmonary disease) (CMS/HCC) Depression (CMS/HCC) Diabetes (CMS/HCC) Fallen arches Fibromyalgia GERD (gastroesophageal reflux disease) Hammer toe Hypertension ([facility]) Kidney stones DC (myocardial infarction) (CMS/HCC) Migraine (CMS/HCC) Mitral valve [...] pb surgery OTHER SURGICAL HISTORY rt 2,3,4 AL REVISE ULNAR NERVE AT WRIST ulnar nerve [...] Not at risk (06/16/2024) Received from [facility] PHQ-2 Patient Health Questionnaire-2 Score: 0 [...] in all four extremities, including at least boathouse keeper, finger abductors, biceps, triceps, deltoid, toe flexors [...] Follow up 3 months. documented in this encounterDeaconess Incarnate Word Health [id number] NoteAddendum created 08/04/24 1211 by Negrito Garcia MD Clinical Note Signed, Intraprocedure Blocks editedKettering Health Main Campus12-17-2024 Telephone encounter Note* Telephone Encounter - Jen Gomez - 08/04/2024 9:21 AM EST Patient called in requesting that lidocaine cream be called into her pharmacy for her. [facility] [id number] Miscellaneous Notes* Telephone Encounter - Jen Jason - 08/04/2024 9:21 AM EST Patient called in requesting that lidocaine cream be called into her pharmacy for her. documented in this encounterDeaconess Incarnate Word Health [id number] NotePatient: Rock Herrera Procedure Summary Date: 08/03/24 Room / Location: [address] OR Anesthesia Start: 115 Anesthesia Stop: 1313 Procedures: REVISION TO SUBMUSCULAR [...] PACU per anesthesia protocol. No notable events documented.[facility]12-16-[facility] Note Patient: Rock Herrera Procedure Summary Date: 08/03/24 Room / Location: [address] [place] Anesthesia Start: 1155 Anesthesia Stop: 1313 [...] direct observation Transport: uneventful Patient condition is: stableKettering Health Main Campus12-16-2024 Note Peripheral Block Patient location during procedure: [...] Heart rate change: no Slow fractionated injection: [facility]12-16-2024 NotePeripheral Block Patient location during procedure: [...] Heart rate change: no Slow fractionated injection: [facility]12-16-2024 NotePatient: Rock Herrera Procedure Information Date/Time: 08/03/24 1215 Procedures: REVISION TO SUBMUSCULAR TRANSPOSITION, NERVE, ULNAR (Left: Forearm) REVISION RELEASE, CARPAL TUNNEL (Left: Wrist) Location: [facility] / [facility] OR Surgeons: Lan Rubi MD Relevant Problems [...] patient. Plan discussed with CAA. Additional Equipment RequestsKettering Health Main Campus12-11-2024 History of Present illness Narrative* Allison Bryant, FOOD TECHNOLOGIST - 07/29/2024 1:30 PM EST Reason for [...] Oral, Daily ergocalciferol (Vitamin D2) 1.25 MG (99306 UT) capsule 1 capsule, Oral, Weekly furosemide [...] mg, Oral, 4 times daily nystatin (Mycostatin) [id number] UNIT/ML suspension TAKE 5ML BY MOUTH FOUR [...] Behavior, Mental Status Change, other, Vomiting hallucinate [place] Saline Nasal Gel [Aloe-Sodium Chloride] Facial numbness/tongue [...] Change in bowel habits 02/25/2023 Anxiety state ([facility]) 05/01/2011 Anxiety 05/01/2011 Bicipital tenosynovitis 10/22/2013 Attention deficit hyperactivity disorder [facility] [facility] [place]) 10/05/2021 Gastric foreign body 02/25/2023 Esophageal dysmotility 05/21/2022 Gastric bezoar 05/21/2022 Gastroesophageal reflux disease 10/23/2013 Bipolar disorder ([facility]) 10/23/2013 Borderline personality disorder ([facility]) 10/05/2021 Chronic depression ([facility] [place]) 05/01/2011 Chronic obstructive lung disease ([facility] [place]) 10/23/2013 Contracture, right ankle 02/25/2023 Colon polyp 02/25/2023 Chronic, continuous use of opioids 02/28/2015 Current smoker 10/10/2021 Degenerative joint disease of shoulder region 10/22/2013 Diabetes ([facility] [place]) 02/25/2023 Type 2 diabetes mellitus ([facility] [place]) 10/10/2021 Xerostomia 12/14/2020 Vertigo 10/05/2021 [...] 10/23/2013 Plantar fasciitis, bilateral 11/12/2022 Personality disorder ([facility] [place]) 11/12/2022 Peripheral venous insufficiency 05/21/2022 Parotid gland enlargement 12/14/2020 Overweight 01/24/2023 Osteoporosis ([facility] [place]) 02/25/2023 Osteopenia of hip 02/25/2023 Osteochondritis dissecans of right ankle 05/21/2022 Obesity with body mass index 30 or greater 05/21/2022 BMI 30.0-30.9,adult 02/25/2023 Neuropathy 10/05/2021 Nausea and vomiting 02/25/2023 Downey's neuroma of both feet 11/12/2022 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 (CMS/HCC) 01/03/2023 Mitral valve prolapse 10/23/2013 Migraine [...] neuropathy (CMS/HCC) 05/21/2022 Diabetes mellitus without complication ([facility] [place]) 02/25/2023 Osteoarthritis 04/12/2020 Deformity of metatarsal 02/25/2023 Gastritis 11/12/2022 Sacral contusion 04/04/2023 Lumbar strain, sequela 04/04/2023 Hyperlipidemia ([facility]) 10/23/2013 Cervical paraspinal muscle spasm 05/02/2023 Lumbar radiculopathy 05/02/2023 Restless leg syndrome 05/02/2023 Drug-induced parkinsonism (HCC) ([facility]) 05/02/2023 Lesion of ulnar nerve, [...] Problems Past Medical History: Diagnosis Date Asthma ([facility]) Bunion COPD (chronic obstructive pulmonary disease) ([facility] [place]) Depression ([facility] [place]) Fallen arches GERD (gastroesophageal reflux disease) Hammer toe Hypertension ([facility] [place]) Kidney stones DC (myocardial infarction) ([facility] [place]) Downey's neuroma Onychomycosis Oxygen dependent Plantar fasciitis SVT (supraventricular tachycardia) ([facility] [place]) Tinea pedis HISTORY PAST MEDICAL HISTORY SOCIAL HISTORY Past Medical History: Diagnosis Date Asthma ([facility] [place]) Bipolar disorder ([facility] [place]) Bunion COPD (chronic obstructive pulmonary disease) ([facility] [place]) Depression ([facility]) Diabetes ([facility] [place]) Fallen arches Fibromyalgia GERD (gastroesophageal reflux disease) Hammer toe Hypertension ([facility] [place]) Kidney stones DC (myocardial infarction) ([facility] [place]) Migraine (CMS/HCC) Mitral valve prolapse Downey's neuroma [...] pb surgery OTHER SURGICAL HISTORY rt 2,3,4 [place] REVISE ULNAR NERVE AT WRIST ulnar nerve [...] nursing note reviewed. Exam conducted with a endoscopy technican present. Vitals: Estimated body mass index is [...] of: David Villalobos DO documented in this encounterDeaconess Incarnate Word Health [id number] History of Present illness Narrative* Martin Arango, SALLIE - 06/18/2024 3:00 PM EDT Patient: Rock [...] Behavior, Mental Status Change, other, Vomiting hallucinate [place] Saline Nasal Gel [Aloe-Sodium Chloride] Facial numbness/tongue [...] History: Past Medical History: Diagnosis Date Asthma ([facility]) Bipolar disorder ([facility] [place]) Bunion COPD (chronic obstructive pulmonary disease) ([facility] [place]) Depression ([facility] [place]) Diabetes ([facility] [place]) Difficulty walking Fallen arches Fibromyalgia Hammer toe Kidney stones Migraine ([facility] [place]) Mitral valve prolapse Downey's neuroma [...] time., Disp: , Rfl: Continuous Blood Gluc Exercise Science Internship (Dexcom G6 political cartoonist) device, 1 UNIT YEARLY, Disp: , Rfl: Continuous Blood Gluc Sensor (Dexcom G6 Sensor) [facility], USE 1 UNIT DIRECTED AND CHANGE EVERY 10 DAYS, Disp: , Rfl: ergocalciferol (Vitamin D2) 1.25 MG (55132 UT) capsule, Take 1 capsule by mouth [...] oral route., Disp: , Rfl: nystatin (Mycostatin) 475997 UNIT/ML suspension, TAKE 5ML FOUR TIMES A [...] pedal pulses to bilateral feet Neuro: 5.07 Pawling Gina monofilament test positive to digits and [...] polyneuropathy, with long-term current use of insulin ([facility] [place]) PLAN Patient to continue with [...] consider Martin Arango DPM documented in this encounterDeaconess Incarnate Word Health [id number] NoteOrthopaedic Surgery Subjective Pain and New Patient [...] hand. These symptoms has also affected her boathouse keeper strength and she has found herself dropping [...] to all digits and the wrist Strength: boathouse keeper 5/5, thumb 5/5, interossei 5/5. wrist extension/flexion [...] reason I do not see it in [facility], although I can see other clinic [...] there is anything different I will contact her.[facility]10-29-2024 NoteUS SOFT TISS HEAD NECK Procedure: US SOFT TISS HEAD NECK; Reason for Exam: Parotid gland enlargement; Xerostomia; Comparison: None IMPRESSION: * OMERACT 1. Normal sonographic appearance of the parotid gland parenchyma. Normal Doppler flow. * 1.0 x 0.7 x 1.0 cm simple appearing left infraparotid cystic lesion. Finalized by Dandre Prabhakar on 06/16/2024 7:56 [facility] 06-15-2024 Telephone encounter Note* Telephone Encounter - Janelle Wesbter - 06/15/2024 8:21 AM EDT Rock called [...] next step for her. She was understanding. [facility] [id number] Miscellaneous Notes* Telephone Encounter - Janelle Darin [...] her. She was understanding. documented in this encounterDeaconess Incarnate Word Health [id number] Telephone encounter Note* Telephone Encounter - Teressa Parikh - 06/09/2024 3:40 PM EDT I did speak with patient and she understood. I did let patient know to contact pain management or her family doctor. [facility] [id number] Miscellaneous Notes* Telephone Encounter - Teressa Parikh [...] pain. [facility] [place]. Patient phone number is [phone]. * Telephone Encounter - Teressa Parikh - 06/09/2024 10:38 AM EDT Patient called stating that she is in a lot of pain with her LT leg. Patient stated she has tried ice, heat and lidocaine cream. She stated she had the nerve block test done 06/05. Patient would like some suggestions. Please advise [phone]. documented in this encounterDeaconess Incarnate Word Health SystemFnymxaiwbq97-39-6059 Telephone encounter Note* Telephone Encounter - Chico Romero NP - 06/09/2024 3:33 PM EDT Needs to follow up with pain management. We will not be sending any medication. [facility] Work Phone: [phone]) 578-404610-22-2024 Telephone encounter Note* Telephone Encounter - Teressa Parikh - 06/09/2024 3:27 PM EDT Patient called again requesting a RX be sent over for pain. [facility] [place]. Patient phone number is [phone]. [facility] [id number] Telephone encounter Note* Telephone Encounter - Teressa Parikh - 06/09/2024 10:38 AM EDT Patient called stating that she is in a lot of pain with her LT leg. Patient stated she has tried ice, heat and lidocaine cream. She stated she had the nerve block test done 06/05. Patient would like some suggestions. Please advise [phone]. [facility] SystemHhaekfodhe65-16-0488 Telephone encounter Note* Telephone Encounter - Amaris Huynh MA - 05/28/2024 1:26 PM EDT Patient calls requesting refill of Ammonium Lactate. (I don't see it in the chart for the Refill ), to [facility]. She says that her feet are really dry and also wants to let you know that her toes still hurt. [facility] [id number] Miscellaneous Notes* Telephone Encounter - Amaris Huynh MA - 05/28/2024 1:26 PM EDT Patient calls requesting refill of Ammonium Lactate. (I don't see it in the chart for the Refill ), to [facility]. She says that her feet are really dry and also wants to let you know that her toes still hurt. documented in this encounterDeaconess Incarnate Word Health [id number] History of Present illness Narrative* Martin Arango [...] Behavior, Mental Status Change, other, Vomiting hallucinate [place] Saline Nasal Gel [Aloe-Sodium Chloride] Facial numbness/tongue [...] History: Past Medical History: Diagnosis Date Asthma ([facility]) Bipolar disorder ([facility] [place]) Bunion COPD (chronic obstructive pulmonary disease) ([facility] [place]) Depression ([facility] [place]) Diabetes ([facility] [place]) Difficulty walking Fallen arches Fibromyalgia Hammer toe Kidney stones Migraine ([facility] [place]) Mitral valve prolapse Downey's neuroma [...] time., Disp: , Rfl: Continuous Blood Gluc Exercise Science Internship (Dexcom G6 political cartoonist) device, 1 UNIT YEARLY, Disp: , Rfl: Continuous Blood Gluc Sensor (Dexcom G6 Sensor) [facility], USE 1 UNIT DIRECTED AND CHANGE EVERY 10 DAYS, Disp: , Rfl: ergocalciferol (Vitamin D2) 1.25 MG (77164 UT) capsule, Take 1 capsule by mouth [...] oral route., Disp: , Rfl: nystatin (Mycostatin) [id number] UNIT/ML suspension, TAKE 5ML FOUR TIMES A [...] pedal pulses to bilateral feet Neuro: 5.07 Pawling Gina monofilament test positive to digits and [...] polyneuropathy, with long-term current use of insulin ([facility] [place]) PLAN Pt to d/c abx. [...] Ibuprofen Martin Arango DPM documented in this encounterDeaconess Incarnate Word Health [id number] Telephone encounter Note* Telephone Encounter - Anjelica Rutledge - 05/11/2024 12:28 PM EDT Patient called and states that the Biotin is not helping with Neuropathy. States that it is gettingworse and more frequent. Please advise. [facility] [id number] Miscellaneous Notes* Telephone Encounter - Anjelica Rutldege - 05/11/2024 12:28 PM EDT Patient called and states that the Biotin is not helping with Neuropathy. States that it is gettingworse and more frequent. Please advise. documented in this encounterDeaconess Incarnate Word Health SystemGyxkniabjk31-96-2090 Telephone encounter Note* Telephone Encounter - Inessa Fernandez RN - 05/05/2024 4:20 PM EDT [facility] sent will not see pt due to being discharged from the practice. Spoke with pt, she is willing to try [facility] pain clinic and as second choice will see Dr Pink. Will send referral to Dr Maharaj at [facility] [id number] Miscellaneous Notes* Telephone Encounter - Inessa Fernandez RN - 05/05/2024 4:20 PM EDT [facility] sent will not see pt due to being discharged from the practice. Spoke with pt, she is willing to try [facility] pain clinic and as second choice will see Dr Pink. Will send referral to Dr Maharaj at [facility] * Telephone Encounter - Verona Castano - 05/05/2024 11:04 AM EDT Patient called stating that a referral was going to be sent to [facility] pain management. She did call over there and they told her that they didn't receive anything. documented in this encounterDeaconess Incarnate Word Health [id number] Telephone encounter Note* Telephone Encounter - Verona Castano - 05/05/2024 11:04 AM EDT Patient called stating that a referral was going to be sent to [facility] pain management. She did call over there and they told her that they didn't receive anything. [place] [id number] History of Present illness Narrative* Carlos Sanchez MD - 04/27/2024 2:00 PM EDT Images from the original note were not included. CHIEF COMPLAINT REASON FOR VISIT: Headaches, vertigo, neuropathy HPI: Rock Herrera is a 53 y.o. female who presents for A follow up for migraines, vertigo, RLS, neuropathy, and lumbar radiculopathy. Patient states she has still not gotten her nurtec from [employer]. She states that we need to try [...] Oral, Daily ergocalciferol (Vitamin D2) 1.25 MG (38181 UT) capsule 1 capsule, Oral, Weekly furosemide [...] 75 mg, Sublingual, As needed nystatin (Mycostatin) [id number] UNIT/ML suspension TAKE 5ML BY MOUTH FOUR [...] Behavior, Mental Status Change, other, Vomiting hallucinate [place] Saline Nasal Gel [Aloe-Sodium Chloride] Facial numbness/tongue [...] SCREEN: Past Medical History: Diagnosis Date Asthma ([facility]) Bipolar disorder ([facility] [place]) Bunion COPD (chronic obstructive pulmonary disease) ([facility] [place]) Depression ([facility] [place]) Diabetes ([facility] [place]) Fallen arches Fibromyalgia GERD (gastroesophageal reflux disease) Hammer toe Hypertension ([facility] [place]) Kidney stones DC (myocardial infarction) ([facility] [place]) Migraine ([facility] [place]) Mitral valve prolapse Downey's neuroma Onychomycosis Osteoarthritis Oxygen dependent Plantar fasciitis Sleep apnea SVT (supraventricular tachycardia) ([facility] [place]) Tinea pedis Past Surgical History: [...] pb surgery OTHER SURGICAL HISTORY rt 2,3,4 [place] REVISE ULNAR NERVE AT WRIST ulnar nerve [...] Depression: Not at risk (02/27/2024) Received from [facility] PHQ-2 Total Score: 0 Recent Concern: Depression - At risk (12/18/2023) Received from [facility], [facility] PHQ-2 Total Score: 7 REVIEW OF SYMPTOMS: [...] reflexes: Jeffery's absent. Ankle clonus absent. Coordination Oeudrp-qe-eepj, rapid alternating movements and sbmn-fq-dmcx normal bilaterally without dysmetria. Gait Normal casual, [...] Follow up 3 months documented in this encounterDeaconess Incarnate Word Health [id number] History of Present illness Narrative* Martin Arango, [...] Behavior, Mental Status Change, other, Vomiting hallucinate [place] Saline Nasal Gel [Aloe-Sodium Chloride] Facial numbness/tongue [...] History: Diagnosis Date Asthma (CMS/HCC) Bipolar disorder (CMS/[facility]) Bunion COPD (chronic obstructive pulmonary disease) ([facility] [place] Depression ([facility] [place]) Diabetes ([facility] [place]) Difficulty walking Fallen arches Fibromyalgia Hammer toe Kidney stones Migraine ([facility] [place]) Mitral valve prolapse Downey's neuroma Onychomycosis Osteoarthritis [...] time., Disp: , Rfl: Continuous Blood Gluc Exercise Science Internship (Dexcom G6 political cartoonist) device, 1 UNIT YEARLY, Disp: , Rfl: Continuous Blood Gluc Sensor (Dexcom G6 Sensor) mis, USE 1 UNIT DIRECTED AND CHANGE EVERY 10 DAYS, Disp: , Rfl: ergocalciferol (Vitamin D2) 1.25 MG (59211 UT) capsule, Take 1 capsule by mouth [...] oral route., Disp: , Rfl: nystatin (Mycostatin) [id number] UNIT/ML suspension, TAKE 5ML FOUR TIMES A [...] pedal pulses to bilateral feet Neuro: 5.07 Pawling Gina monofilament test positive to digits and [...] polyneuropathy, with long-term current use of insulin ([facility] [place]) PLAN Pt to d/c abx. [...] boot Martin Arango DPM documented in this encounterDeaconess Incarnate Word Health [id number] History of Present illness Narrative* Pastora Alcantara, DO - 04/21/2024 1:00 PM EDT Images from the original note were not included. HISTORY OF PRESENT ILLNESS: Rock Herrera is an 53 y.o. @ female. 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 A1c 5.9 on 02/27/24. +Tobacco user. LT [...] wearing a brace, she got this from [facility] orthopedics. She was advised to quit smoking by [facility]. Had cortisone injx in [...] knee done on 03/27/24. [place]: ER/XR 01/31/24 [facility], MRI/03/27/24/Dr. Zach Manzanares knee arthroscopy (unsure of the year), JUANCARLOS, mickie, [facility] orthopedics steroid injections spring [...] mouth Daily ergocalciferol (Vitamin D2) 1.25 MG (61137 UT) capsule Take 1 capsule by mouth [...] 75 mg under the tongue nystatin (Mycostatin) [id number] UNIT/ML suspension TAKE 5ML BY MOUTH FOUR [...] HISTORY: Past Medical History: Diagnosis Date Asthma ([facility]) Bipolar disorder ([facility] [place]) Bunion COPD (chronic obstructive pulmonary disease) ([facility]) Depression ([facility]) Diabetes ([facility]) Fallen arches Fibromyalgia GERD (gastroesophageal reflux disease) Hammer toe Hypertension ([facility]) Kidney stones DC (myocardial infarction) ([facility]) Migraine ([facility]) Mitral valve prolapse Downey's neuroma Onychomycosis Osteoarthritis Oxygen dependent Plantar fasciitis Sleep apnea SVT (supraventricular tachycardia) ([facility]) Tinea pedis ALLERGIES: Allergies Allergen [...] Behavior, Mental Status Change, other, Vomiting hallucinate [place] Saline Nasal Gel [Aloe-Sodium Chloride] Facial numbness/tongue [...] left knee dated January 31, 2024 from [facility]. There is medial compartmentcollapse with subchondral sclerosis. There are no fractures detected. I reviewed an MRI of the left knee dated March 27, 2024 from [facility]. There is complete loss of the articular cartilage in the medial compartment with fzzb-qk-pucp. There is an extruded torn medial meniscus [...] Dr. Alcantara/barbie Alcantara D.O. documented in this encounterDeaconess Incarnate Word Health [id number] History of Present illness Narrative* Pastora Alcantara DO - 04/14/2024 1:00 PM EDT Images from the original note were not included. HISTORY OF PRESENT ILLNESS: Rock Herrera is an 53 y.o. @ female. Chief complaint LT knee pain LT Elbow/ LT Wrist. Saw Fiona 04/13. Here to discuss options Pain since [...] surgery this year on the elbow at [facility] but it got cancelled due to not having therapy, [place]: EMG done at Dr. Vince Sanchez on 03/13/23, LT elbow mri [facility] 01/27/24, , O.T. 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 A1c 5.9 on 02/27/24. +Tobacco user. She [...] wearing a brace, she got this from [facility] orthopedics. Had 2 steroid injections from [facility] in the past few months without relief. She was advised to quit smoking by [facility]. She was approved for the gel injections but had them on the right and opted to not have them done on the left. Has tried voltaren gel without relief. [facility] and had xrays of the LT knee and was prescribed lidocaine patches (without relief). She then had an MRI of the LT knee done on 03/27/24. [place]: ER/XR 01/31/24 [facility], MRI/03/27/24/[place], Dr. Mondragon knee arthroscopy (unsure of the year), TYL, heat, [facility] orthopedics steroid injections spring [...] mouth Daily ergocalciferol (Vitamin D2) 1.25 MG (85641 UT) capsule Take 1 capsule by mouth [...] 75 mg under the tongue nystatin (Mycostatin) [id number] UNIT/ML suspension TAKE 5ML BY MOUTH FOUR [...] TAKE WITH MEALS. [DISCONTINUED] Continuous Blood Gluc Exercise Science Internship (Dexcom G6 political cartoonist) device 1 UNIT YEARLY [DISCONTINUED] Continuous Blood Gluc Sensor (Dexcom G6 Sensor) [facility] USE 1 UNIT DIRECTED AND CHANGE EVERY [...] disease) Hammer toe Hypertension (CMS/HCC) Kidney stones DC (myocardial infarction) (CMS/HCC) Migraine ([facility]) Mitral valve prolapse Downey's neuroma Onychomycosis Osteoarthritis Oxygen dependent Plantar fasciitis Sleep apnea SVT (supraventricular tachycardia) ([facility]) Tinea pedis ALLERGIES: Allergies Allergen [...] Behavior, Mental Status Change, other, Vomiting hallucinate [place] Saline Nasal Gel [Aloe-Sodium Chloride] Facial numbness/tongue [...] Dr. Alcantara/barbie Alcantara D.O. documented in this encounterAshley Ville [id number] History of Present illness Narrative* Cj Zepeda, ADJUNCT PSYCHOLOGY INSTRUCTOR - 04/13/2024 12:00 PM EDT Subjective Patient [...] up the medial arm. Pain at rest /10 with activities 05/28, she is taking percocet for something else from dr. Arango for recent nail removal of 5 toes. She notes she is dropping things all of the time. Denies using a brace, ice, heat, topical ointments. She did have therapy on the elbow (February and March 2024) at [facility] with no improvement, she notes it made her hand and elbow weaker. She notes she was schedule for surgery but it got cancelled since she did not have therapy, she wasgoing to have surgery done at [facility]. [place]: EMG done at Dr. Vince Sanchez on 03/13/23, LT elbow mri [facility] 01/27/24, , O.T. valerie vargas (February-Mar 2024) Objective Left Hand Exam Muscle Strength Beef Killer: 4-/5 Left Elbow Exam Tests Tinel's sign (cubital tunnel): positive Elbow Musculoskeletal Exam Inspection Left Ecchymosis: none Swelling: none Deformity: none Palpation Left Tenderness: present Ulnar nerve: moderate Range of Motion Left Active Extension: 0 Active Pronation: 90 Passive Pronation: 90 Active Supination: 90 Passive Supination: 90 Strength Left Finger abduction: 4-/5. Beef Killer strength: 4-/5. Neurovascular Left Radial pulse: normal [...] [facility] is unremarkable for fracture and [...] Alcantara to discuss options. documented in this encounterDeaconess Incarnate Word Health [id number] History of Present illness Narrative* Martin Arango, DPM - 04/09/2024 10:30 AM EDT Patient: Rcok Herrera : 1970 PCP: Robert Giron MD [...] Behavior, Mental Status Change, other, Vomiting hallucinate [place] Saline Nasal Gel [Aloe-Sodium Chloride] Facial numbness/tongue [...] History: Past Medical History: Diagnosis Date Asthma ([facility]) Bipolar disorder ([facility]) Bunion COPD (chronic obstructive pulmonary disease) ([facility]) Depression (CMS/HCC) Diabetes (CMS/HCC) Difficulty walking Fallen [...] time., Disp: , Rfl: Continuous Blood Gluc Exercise Science Internship (Dexcom G6 political cartoonist) device, 1 UNIT YEARLY, Disp: , Rfl: Continuous Blood Gluc Sensor (Dexcom G6 Sensor) [facility], USE 1 UNIT DIRECTED AND CHANGE EVERY 10 DAYS, Disp: , Rfl: ergocalciferol (Vitamin D2) 1.25 MG (01824 UT) capsule, Take 1 capsule by mouth [...] oral route., Disp: , Rfl: nystatin (Mycostatin) 155932 UNIT/ML suspension, TAKE 5ML FOUR TIMES A [...] pedal pulses to bilateral feet Neuro: 5.07 Pawling Gina monofilament test positive to digits and [...] anti-inflammatories Martin Arango DPM documented in this encounterDeaconess Incarnate Word Health [id number] History of Present illness Narrative* Cj Zepeda NP - 04/08/2024 12:30 PM EDT Subjective Patient ID: Rock Herrera is a 53 y.o. female. 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 [facility] orthopedics and had 2 steroid injections in the past few months without relief. She notes she needed to stop smoking otherwise they would not be able to help her at [facility]. She was approved for the gel injections but had them on the right and opted to not have them done on the left. Has tried voltarengel without relief. Went to [facility] ER on 01/31/24 and had xrays of the LT knee and was prescribed lidocaine patches (without relief). She then had an MRI of the LT knee done on 03/27/24. Intermittent swelling based off of activities. Intermittent catching and locking. Intermittent give way sensation. If the pain is bad enough she will use a walker. [place]: [facility]/[place], Dr. Mondragon knee arthroscopy unsure of the year prior to him retiring, TYL, heat, [facility] orthopedics steroid injections spring [...] tear of the medial meniscus. This is dyvd-if-kqqx with subchondralcyst. there is also an incidental [...] to discuss surgical intervention, documented in this encounterDeaconess Incarnate Word Health [id number] NoteConsultation Note Patient is presenting with a [...] call with any questions or concerns that arise.Regional Medical CenterComment on above:Result Comment: Electronically Signed By: Andrew Eid DO.rosi\Date and Time Signed: 03/05/24 15:55 [id number] Evaluation + Plan noteExtracted from:Title:chronic painAuthor:Andrew Eid DO.Date: 03/05/24 Patient is presenting with a longstanding history [...] Date:07/30/2024 01:45:00 PM Scheduled Provider:Kehinde Davalos MD [facility] Type:Cardiology Follow Up () Appointment Date:01/05/2025 01:00:00 PM Scheduled Provider:SHERI JIMENES PA-C Location:[facility] Appointment Type:URO Office Visit Future Scheduled Tests Radiology* Echo Transthoracic Complete 05/20/23 [facility]05-29-2024 Evaluation + Plan noteExtracted from: Title:Pain Managment Follow upAuthor:Artie NORRIS, AmandaDate:01/15/24 Impression and Plan Patient is a 53-year-old female with a past medical history significant for fibromyalgia, lumbar stenosis, lumbar neuritis, neck pain and cervical neuritis. In regards to her fibromyalgia we had a long throughout her pain and medications. We discussed on nonopiate treatment. At this time, I would recommend she be treated on a nonnarcotic basis due to herOARRS and her use the medications and all [...] a surgeon in regards to her neck painand cervical neuritis we discussed therapy once again. I would recommend her to start this as she has not yet done so. Follow-up in 1 month. Call clinic sooner if necessary. TU score: 72%. Future Appointments Appointment Date:01/30/2024 02:15:00 PM Scheduled Provider:En Carmen PA-C [facility] Appointment Type:Cardiology Follow Up (FT) Appointment Date:03/05/2024 03:30:00 PM Scheduled Provider:Andrew Eid DO Location:[facility] Appointment Type:Pain Management - Follow Up (FT) Appointment Date:01/05/2025 01:00:00 PM Scheduled Provider:SHERI JIMENES PA-C Location:[facility] Appointment Type:URO Office Visit Future Scheduled Tests Laboratory* Pancreatic Elastase, Fecal 01/29/23 * Fecal WBC Lactoferrin 01/29/23 * Giardia lamblia, Direct Detection EIA 01/29/23 * O & P Exam, Routine 01/29/23 * Clostridium Difficile PCR 01/29/23 * Enteric Panel by PCR 01/29/23 Radiology* Echo Transthoracic Complete 05/20/23 [facility]05-15-2024 Evaluation + Plan noteExtracted from: Title:Pain Managment Follow upAuthor:Artie NORRIS AmandaDate:01/01/24 Impression and Plan Patient is a 53-year-old [...] At this time she is going to pursuethe physical therapy and follow-up in 8 to 10 weeks. Call clinic sooner if necessary. OARRS reviewed TU score: 68% Future Appointments Appointment Date:01/30/2024 02:15:00 PM Scheduled Provider:En Carmen PA-C [facility] Appointment Type:Cardiology Follow Up (FT) Appointment Date:02/26/2024 11:15:00 AM Scheduled Provider:Andrew Eid DO [facility] Appointment Type:Pain Management - Follow Up (FT) Appointment Date:01/05/2025 01:00:00 PM Scheduled Provider:SHERI JIMENES PA-C Location:[facility] Appointment Type:URO Office Visit Future Scheduled Tests Laboratory* Pancreatic Elastase, Fecal 01/29/23 * Fecal WBC Lactoferrin 01/29/23 * Giardia lamblia, Direct Detection EIA 01/29/23 * O & P Exam, Routine 01/29/23 * Clostridium Difficile PCR 01/29/23 * Enteric Panel by PCR 01/29/23 Radiology* Echo Transthoracic Complete 05/20/23 [facility]05-14-2024 Hospital Discharge instructions Patient Education 12/31/2023 12:57:29 [...] (electrical nerve stimulation). ?For women, using a diploma medical assistant to prevent urine leaks. This [...] right after experiencing incontinence. General instructions Take qxgu-bbi-ffjhakt and prescription medicines only as told by [...] important. Where to find more information National [place] of Diabetes and Digestive and Kidney Diseases: www.niddk.nih.gov [place] [employer] Association: www.urologyhealth.org Contact a health care [...] provider. Document Revised: 03/10/2021 Document Reviewed: 03/10/2021 [employer] Patient Education 2022 [employer]. Follow Up Care 09/17/2023 08:57:54 With:SHERI JIMENES PA-C, URL Address: [address] [place] [phone] When: Unknown [facility] 04-05-2024 Evaluation + Plan noteExtracted from:Title: L4/5 interlaminar epidural steroid injectionAuthor:Andrew Eid DO.Date: 12/11/23 Diagnosis: M54.16, lumbar ra diculopathy Procedure: L4/5 [...] the epidural space was confirmed using the zaxo-tc-mpyguxxyyx technique and 2 cc of air. Injection [...] Date:12/31/2023 01:00:00 PM Scheduled Provider:SHERI JIMENES PA-C Location:[facility] Appointment Type:URO Office Visit Appointment Date:01/01/2024 11:00:00 AM Scheduled Provider:Cady Alva PA-C Location:[facility] Appointment Type:Pain [...] Panel 12/25/22 Radiology* Echo Transthoracic Complete 05/20/23 [facility]03-20-2024 Evaluation + Plan noteExtracted from: Title:Pain Managment H&P new patientAuthor:Cady Alva PA-CDate:11/06/23 Impression and Plan Patient is a 53-year-old [...] quality of life. Based on her MRI findings,her pain pattern, and her failure to improve [...] Date:12/31/2023 01:00:00 PM Scheduled Provider:SHERI JIMENES PA-C Location:[facility] Appointment Type:URO Office Visit Future Scheduled Tests Laboratory* Pancreatic Elastase, Fecal 01/29/23 * Fecal WBC Lactoferrin 01/29/23 * Giardia lamblia, Direct Detection EIA 01/29/23 * O & P Exam, Routine 01/29/23 * Clostridium Difficile PCR 01/29/23 * Enteric Panel by PCR 01/29/23 * CBC w/ Auto Diff 12/25/22 * Comprehensive Metabolic Panel 12/25/22 Radiology* Echo Transthoracic Complete 05/20/23 [facility]02-09-2024 Miscellaneous Notes* Telephone Encounter - Anjelica Rutledge - 09/27/2023 8:08 AM EST Patient left message requesting if she can get refill of Tramadol. Please advise. [phone] documented in this encounterDeaconess Incarnate Word Health [id number] Telephone encounter Note* Telephone Encounter - Anjelica Rutledge - 09/27/2023 8:08 AM EST Patient left message requesting if she can get refill of Tramadol. Please advise. [phone] [facility] [id number] History of Present illness Narrative* Martin Arango, [...] Behavior, Mental Status Change, other, Vomiting hallucinate [place] Saline Nasal Gel [Aloe-Sodium Chloride] Facial numbness/tongue [...] History: Past Medical History: Diagnosis Date Asthma ([facility]) Bipolar disorder ([facility]) Bunion COPD (chronic obstructive pulmonary disease) ([facility]) Depression ([facility] Diabetes ([facility]) Difficulty walking Fallen arches Fibromyalgia Hammer toe Kidney stones Migraine ([facility]/HCC) Mitral valve prolapse Downey's neuroma Onychomycosis Osteoarthritis [...] time., Disp: , Rfl: Continuous Blood Gluc Exercise Science Internship (Dexcom G6 political cartoonist) device, 1 UNIT YEARLY, Disp: , Rfl: Continuous Blood Gluc Sensor (Dexcom G6 Sensor) [facility], USE 1 UNIT DIRECTED AND CHANGE EVERY 10 DAYS, Disp: , Rfl: ergocalciferol (Vitamin D2) 1.25 MG (63019 UT) capsule, Take 1 capsule by mouth [...] oral route., Disp: , Rfl: nystatin (Mycostatin) 227960 UNIT/ML suspension, TAKE 5ML FOUR TIMES A [...] breath with positive history of tachycardia seeing pathologist assistant for this Pulmonary: Positive history of shortness [...] polyneuropathy, with long-term current use of insulin ([facility]) 4. Contracture of right ankle [...] risks, alternatives, benefits, post op complications and custodial expectations were discussed including but not limited to: infection,bone infection,wound dehiscence hardware failure and irritation,wound dehiscence,delay union/mal union/non union of bone. RSDS,neuroma,duty limitations,DVT/PE, DC,nerve damage, scar, loss of sensation, swelling. Pt [...] date and current (date) documented in this encounterDeaconess Incarnate Word Health [id number] Hospital Discharge instructions Patient Education 09/17/2023 08:52:34 [...] Follow these instructions at home: Medicines Take gqlr-oit-ckswzqr and prescription medicines only as told by [...] or the blood stops without treatment. Take ikcd-aop-fgjiqkk and prescription medicines only as told by your health care provider. Drink enough fluid to keep your urine pale yellow. This information is not intended to replace advice given to you by your health care provider. Make sure you discuss any questions you have with your health care provider. Document Revised: 04/05/2021 Document Reviewed: 04/05/2021 [employer] Patient Education 2022 [employer]. Follow Up Care 06/13/2023 09:13:04 With:YUDY NORRIS, SHERI Kaminski, URL Address: [address] [place] [address] [phone] When: Unknown Comments:3 mos (restart med) [facility] Evaluation note* Encounter Date Diagnosis Assessment Notes Treatment Notes Treatment Clinical Notes Aug, Chronic obstructive pulmonary disease, unspecified (ICD-10 - J44.9) Aug,Tobacco abuse (ICD-10 - Z72.0)Stop smoking. Chest CT in 03/2023 showed emphysema, no nodules. Next LDCT screening will be scheduled for 2023. Aug,iastolic dysfunction (ICD-10 - I51.9) Aug,Nicotine dependence, cigarettes, uncomplicated (ICD-10 - F17.210) [employer] Other 07-11-2023 Evaluation note* Encounter Date Diagnosis Assessment Notes Treatment Notes Treatment Clinical Notes Feb, Chronic obstructive pulmonary disease, unspecified (ICD-10 - J44.9) If you are using your inhaler or nebulizer more than 4x a day, please notify me. Feb,Tobacco abuse (ICD-10 - Z72.0)Cut back on smoking to goal of stopping. Feb,3Diastolic dysfunction (ICD-10 - I51.9) Feb,Nicotine dependence, cigarettes, uncomplicated (ICD-10 - F17.210) [employer] Other 06-01-2023 Hospital Discharge instructions Patient Education [...] worse throughout the day. 01/17/2023 09:45:38 Hemorrhoids, Amyh-bw-Rfsy Hemorrhoids Hemorrhoids are swollen veins that may [...] 3 times a day. General instructions Take shel-tvp-rsqfjse and prescription medicines only as told by [...] provider. Document Revised: 02/14/2022 Document Reviewed: 02/14/2022 [employer] Patient Education 2022 [employer]. 01/17/2023 09:45:31 Colon Polyps Colon Polyps Colon [...] hard liquor (44 mL). General instructions Take rzsk-rvu-yujaotw and prescription medicines only as told by [...] provider. Document Revised: 11/23/2020 Document Reviewed: 11/23/2020 [employer] Patient Education 2022 [employer]. Follow Up Care 09/14/2022 14:04:03 With:LITTLE WALSH, DHAVAL Poole, [facility] Address: [address] [place] [address]. [address] [place] [address] When: Unknown Comments:Office will call to schedule follow up appointment [facility]04-05-2023 Evaluation + Plan noteExtracted from: Title:Anesthesia Pre-Op Note - SAMAAuthor:Reyes Leon DODate:11/21/22 Plan [place] Society of Anesthesiologists#(ASA) physical status classification: Class [...] Up Appointment Date:01/17/2023 09:50:00 AM Scheduled Provider: Location:[facility] Appointment Type:Surgery FT Appointment Date:01/30/2023 01:20:00 PM Scheduled Provider:SHERI JIMENES PA-C Location:[facility] Appointment Type:URO Office Visit Future Scheduled Tests Laboratory* Clostridium difficile by PCR 05/09/22 * CBC w/ Auto Diff 05/09/22 * Comprehensive Metabolic Panel 05/09/22 [facility]04-05-2023 Hospital Discharge instructions Patient Education 11/21/2022 11:26:16 Foot Cryocuff Patient Instructions - FT (CUSTOM) 11/21/2022 11:26:16 Post Op Patient Instructions - FT (CUSTOM) 11/21/2022 08:48:42 Brown - Post Operative Instructions (Revised 07/29/19) (Custom) ([id number]) (Custom) [place], [place] Martin Arango, DPM, FACFAS POST OPERATIVE INSTRUCTIONS Keep bandage [...] feel free to call the doctor at: [phone] or [phone] Arango paged. Patient signatureDate Dr.Nicholas Harsh DPM, FACFAS Date Revised: 09-26 [facility]03-13-2023 Hospital Discharge instructions Patient Education 10/29/2022 14:43:33 [...] water added (diluted fruit juice). Eat bland, wtsi-iu-fahneg foods in small amounts as you are able. These foods include bananas, applesauce, rice, lean meats, toast, and crackers. Avoid drinking fluids that contain a lot of sugar or caffeine, such as energy drinks, sports drinks, and soda. Avoid alcohol. Avoid spicy or fatty foods. General instructions Take wszl-ewn-cykdvvj and prescription medicines only as told by your health care provider. Rest at home while you recover. Drink enough fluid to keep your urine pale yellow. Breathe slowly and deeply when you feel nauseous. Avoid smelling things that have strong odors. Wash your hands often using soap and water. If soap and water are not available, use hand fisher mussel. Make sure that all people in your [...] recommendations for eating and drinking and take osuu-srg-qghpvfb and prescription medicinesonly as told by your [...] 09/12/2005 Document Revised: 01/13/2019 Document Reviewed: 01/13/2019 [employer] Patient Education 2020 [employer] Follow Up Care 10/02/2022 13:26:11 With:Inessa Grajeda CNP Address: When:1 to 2 weeks Comments:Following colonoscopy. [facility] 03-04-2023 Hospital Discharge instructions [...] Treatment for this condition includes: Antibiotic medicine. Zekb-lht-ibzqawz medicines to treat discomfort. Drinking enough water [...] Follow these instructions at home: Medicines Take cgzv-zcj-rmhioax and prescription medicines only as told by [...] 05/15/2006 Document Revised: 07/23/2019 Document Reviewed: 02/12/2019 [employer] Patient Education 2020 [employer] 10/20/2022 12:23:03 Antibiotic Medicine, Adult Antibiotic Medicine, [...] 04/17/2005 Document Revised: 02/03/2019 Document Reviewed: 08/06/2017 [employer] Patient Education 2020 [employer]. Follow Up Care 10/20/2022 10:33:51 With:ROBERT GIRON Address: [address] [place], [place] [address] [address] [facility] (1) When:10/23/2022 12:22:53 Comments:Call the office of [...] you develop any new or worsening symptoms. [facility]03-04-2023 Evaluation + Plan noteExtracted from: Title:ED NoteAuthor:Santos Landry DODate:10/20/22 Acute UTI (N39.0: Urinary tr act infection, site not specified) Orders: azithromycin, = 1 packet(s), Oral, As Directed, as directed on package labeling, X 5 day(s), # 6 tab(s), Refills(s) 0, Pharmacy: [facility], 163, cm, 10/20/22 10:48:00 EST, Height/Length [...] Appointments Appointment Date:10/23/2022 09:00:00 AM Scheduled Provider: [facility] Appointment Type:US Abdominal/Pelvis (FT) Appointment Date:10/29/2022 02:40:00 PM Scheduled Provider:Inessa Grajeda CNP Location:[facility] Appointment Type:BADH Follow Up Appointment Date:10/30/2022 03:00:00 PM Scheduled Provider:Elliott Solis MD [facility] Appointment Type:Cardiology Follow Up (FT) Appointment Date:11/07/2022 02:40:00 PM Scheduled Provider: Location:[facility] Appointment Type:Surgery FT Appointment Date:01/30/2023 01:20:00 PM Scheduled Provider:SHERI JIMENES PA-C Location:[facility] Appointment Type:URO Office Visit Diagnostic Tests Pending * Urine Culture 10/20/22 Future Scheduled Tests Laboratory* Clostridium difficile by PCR 05/09/22 * CBC w/ Auto Diff 05/09/22 * Comprehensive Metabolic Panel 05/09/22 Radiology* US Abdomen Complete 10/23/22 [facility]02-24-2023 Hospital Discharge instructions Patient Education 10/12/2022 14:38:59 [...] take to decrease my back pain? Take gdhb-qei-toiwkfm or prescription medicines only as told by [...] and in- person support groups through: The [place] Chronic [employer] Association: https://theacpa.org/Support-Groups The U.S. Pain [...] 08/19/2016 Document Revised: 07/18/2018 Document Reviewed: 04/13/2017 [employer] Patient Education 2020 [employer]. Follow Up Care 10/12/2022 12:55:29 With:ROBERT GIRON Address: [place] [address] Business (1) When:10/15/2022 14:38:47 Comments:Call [...] you develop any new or worsening symptoms. [facility]02-24-2023 Evaluation + Plan noteExtracted from: Title:ED NoteAuthor:Isaías Rutledge PA-C, CDate:10/12/22 Chronic pain (G89.29: Other chronic pain) Orders: [...] Appointments Appointment Date:10/23/2022 09:00:00 AM Scheduled Provider: [facility] Appointment Type:US Abdominal/Pelvis (FT) Appointment Date:10/29/2022 02:40:00 PM Scheduled Provider:Inessa Grajeda CNP Location:[facility] Appointment Type:BADH Follow Up Appointment Date:10/30/2022 03:00:00 PM Scheduled Provider:Elliott Solis MD [facility] Appointment Type:Cardiology Follow Up (FT) Appointment Date:11/07/2022 02:40:00 PM Scheduled Provider: Location:[facility] Appointment Type:Surgery FT Appointment [...] Radiology* US Abdomen Complete 10/23/22 [facility]02-14-2023 Hospital Discharge instructions Patient Education 10/02/2022 13:01:04 [...] water added (diluted fruit juice). Eat bland, nebs-ud-dbqybb foods in small amounts as you are able. These foods include bananas, applesauce, rice, lean meats, toast, and crackers. Avoid fluids that contain a lot of sugar or caffeine, such as energy drinks, sports drinks, and soda. Avoid alcohol. Avoid spicy or fatty foods. General instructions Take jjmd-pku-ewckism and prescription medicines only as told by your health care provider. Drink enough fluid to keep your urine pale yellow. Wash your hands often using soap and water. If soap and water are not available, use hand fisher mussel. Make sure that all people in your [...] eating and drinking to prevent dehydration. Take mjmt-pbd-xmouage and prescription medicines only as told by [...] 08/05/2006 Document Revised: 11/27/2019 Document Reviewed: 01/13/2019 [employer] Patient Education 2020 [employer] Follow Up Care 09/21/2022 11:43:03 With:Nicci IZAGUIRRE Inessa Queenie Address: When:1 month [facility] 01-19-2023 Evaluation + Plan noteExtracted from:Title: ANES Post-operative NoteAuthor:Kurt Oseguera MDDate:09/06/22 Plan Transfer/Discharge: Transfer/Discharge Discharge when meets criteria ( To home ). Extracted from:Title:ANES Pre-operative NoteAuthor:Kurt Oseguera MDDate: 09/06/22 Plan [place] Society of Anesthesiologists (ASA) physical status classification: Class III. Anesthetic Preoperative Plan: Anesthesia General, and Monitored anethesia care. Future Appointments Appointment Date:10/30/2022 03:00:00 PM Scheduled Provider:Elliott Solis MD [facility] Appointment Type:Cardiology Follow Up (FT) Appointment Date:01/30/2023 01:20:00 PM Scheduled Provider:SHERI JIMENES PA-C Location:[facility] Appointment Type:URO Office Visit Future Scheduled Tests Laboratory* Fecal WBC Lactoferrin 05/09/22 * Giardia lamblia, Direct Detection EIA 05/09/22 * O & P Exam, Routine 05/09/22 * Clostridium difficile by PCR 05/09/22 * Enteric Panel by PCR 05/09/22 * CBC w/ Auto Diff 05/09/22 * Comprehensive Metabolic Panel 05/09/22 [facility]01-19-2023 Hospital Discharge instructions Patient Education 09/06/2022 09:52:38 [...] what activities are safe for you. Take [id number] and prescription medicines only as told by [...] 02/03/2013 Document Revised: 01/27/2019 Document Reviewed: 01/05/2019 [employer] Patient Education 2020 [employer]. Follow Up Care 06/26/2022 12:25:13 With:Zulema FITCH Address: [address] [place] [address]. [address] [place] [address] Business (1) When: Unknown Comments:Office to call for follow-up appointment [facility]11-17-2022 Evaluation note* Encounter Date Diagnosis Assessment Notes Treatment Notes Treatment Clinical Notes Jun, Chronic obstructive pulmonary disease, unspecified (ICD-10 - J44.9) Jun,Tobacco abuse (ICD-10 - Z72.0)Cut back on smoking to goal of stopping, Jun,iastolic dysfunction (ICD-10 - I51.9) [employer] Other 04-25-2022 Hospital Discharge instructions Patient Education [...] fried and sweet foods. General instructions Take [id number]-[id number] and prescription medicines only as told by [...] 06/01/2010 Document Revised: 11/26/2019 Document Reviewed: 08/21/2018 [employer] Patient Education 2020 [employer]. Follow Up Care 09/04/2021 10:41:00 With:LILI WALSH, Donaldo Moreira, URL Address: [facility] [address], [place] [address]- [phone] When:04/12/2022 [facility] 11-09-2021 NoteHNO ID: [id number] Author: Crystal Rodriguez PA-C Service: ? Author Type: Physician Tobacco Wrapping Machine Tender Type: Progress Notes Filed: 06/27/2021 4:56 PM Note Text: [facility] [place] [facility] NOTE CC: Rock Herrera is a [...] included)...[facility]09-01-2021 NoteHNO ID: [id number] Author: RT James(R) Service: ? Author Type: Medical Office Coordinator Type: Progress Notes Filed: 04/19/2021 1:56 PM [...] BY: RT James(R) April 19, 2021 1:55 [facility]09-01-2021 NoteHNO ID: [id number] Author: Randi Farrell, Service: ? Author Type: Physician Type: Progress [...] [facility] NoteHNO ID: [id number] Author: RT James(R) Service: ? Author Type: Medical Office Coordinator Type: Progress Notes Filed: 04/19/2021 1:09 PM [...] BY: RT James(R) April 19, 2021 1:09 [facility] App[facility]ments Appointment Date:12/11/2021 11:45:00 AM Scheduled Provider:Donaldo PEARSON MD Location:[facility] Appointment Type:URO Office Visit Appointment Date:01/11/2022 02:15:00 PM Scheduled Provider:Zulema FITCH MD Location:[facility] Appointment Type:[facility] Future Appointments Appointment Date:01/11/2022 02:15:00 PM Scheduled Provider:Zulema FITCH MD Location:[facility] Appointment Type:BAD Follow Up Appointment Date:04/09/2022 01:45:00 PM Scheduled Provider:Donaldo PEARSON MD Location:[facility] Appointment Type:URO Office Visit [facility] [...] Date:04/09/2022 01:45:00 PM Scheduled Provider:Donaldo PEARSON MD [facility] Type:[facility]O Office Visit [facility] Evaluation + Plan note Future Appointments Appointment Date:02/01/2022 08:15:00 AM Scheduled Provider: [facility] Appointment Type:Surgery PAT COVID Testing Appointment Date:02/01/2022 09:00:00 AM Scheduled Provider: Location:[facility] Appointment Type:Surgery FT Appointment Date:02/08/2022 09:40:00 AM Scheduled Provider: Location:[facility] Appointment Type:Surgery FT Appointment Date:03/06/2022 10:30:00 AM Scheduled Provider:Cady CALIX CNP [facility] Type:Cardiology Follow Up (FT) Appointment Date:04/09/2022 01:45:00 PM Scheduled Provider:Donaldo PEARSON MD [facility] Future Appointments Appointment Date:02/08/2022 09:30:00 AM Scheduled Provider: [facility] Appointment Type:Surgery FT Appointment Date:03/06/2022 10:30:00 AM Scheduled Provider:Cady CALIX CNP Location:[facility] Appointment Type:Cardiology Follow Up (FT) Appointment Date:04/09/2022 01:45:00 PM Scheduled Provider:Donaldo PEARSON MD [facility] Future Appointments Appointment Date:03/06/2022 10:30:00 AM Scheduled Provider:Cady CALIX CNP [facility] Appointment Type:Cardiology Follow Up (FT) Appointment Date:03/22/2022 08:15:00 AM Scheduled Provider: [facility] Appointment Type:Surgery PAT COVID Testing Appointment Date:03/29/2022 08:40:00 AM Scheduled Provider: [facility] Appointment Type:Surgery FT Appointment Date:04/09/2022 01:45:00 PM Scheduled Provider:Donaldo PEARSON MD [facility]ments Appointment Date:03/20/2022 01:00:00 PM Scheduled Provider: [facility] Type:Cardiology Nurse Visit (FT) Appointment Date:03/22/2022 08:15:00 AM Scheduled Provider: Location:[facility] Appointment Type:Surgery PAT COVID Testing Appointment Date:03/29/2022 08:40:00 AM Scheduled Provider: Location:[facility] Appointment Type:Surgery FT Appointment Date:04/09/2022 01:45:00 PM Scheduled Provider:Donaldo PEARSON MD [facility] App[facility] Type:URO Office Visit Appointment Date:09/06/2022 01:15:00 PM Scheduled Provider:Elliott Solis MD [facility] Type:Cardiology Follow Up (FT) [facility] + Plan note Future Appointments Appointment Date:03/22/2022 08:15:00 AM Scheduled Provider: Location:[facility] Appointment Type:Surgery PAT COVID Testing Appointment Date:03/29/2022 08:40:00 AM Scheduled Provider: Location:[facility] Appointment Type:Surgery FT Appointment Date:04/09/2022 01:45:00 PM Scheduled Provider:Donaldo PEARSON MD [facility] App[facility] Type:URO Office Visit Appointment Date:09/06/2022 01:15:00 PM Scheduled Provider:Elliott Solis MD [facility] Type:Cardiology Follow Up (FT) [facility] Future Appointments Appointment Date:03/29/2022 08:40:00 AM Scheduled Provider: Location:[facility] Appointment Type:Surgery FT Appointment Date:04/09/2022 01:45:00 PM Scheduled Provider:Donaldo PEARSON MD [facility] App[facility] Type:URO Office Visit Appointment Date:09/06/2022 01:15:00 PM Scheduled Provider:Elliott Solis MD [facility] Type:Cardiology Follow Up (FT) [facility] Future Appointments Appointment Date:05/09/2022 01:40:00 PM Scheduled Provider:Inessa Grajeda CNP Location:[facility] Appointment Type:BADH Follow Up Appointment Date:05/15/2022 01:30:00 PM Scheduled Provider:Cady CALIX CNP [facility] Type:Cardiology ED Follow Up (FT) Appointment Date:05/16/2022 01:20:00 PM Scheduled Provider:SHERI JIMENES PA-C Location:[facility] Appointment Type:URO Office Visit Appointment Date:09/06/2022 01:15:00 PM Scheduled Provider:Elliott Solis MD [facility] Type:Cardiology Follow Up (FT) [facility] Future Appointments Appointment Date:06/11/2022 11:00:00 AM Scheduled Provider: Location:[facility] Appointment Type:Surgery PAT COVID Testing Appointment Date:06/18/2022 09:45:00 AM Scheduled Provider: Location:[facility] Appointment Type:Surgery FT Appointment Date:09/06/2022 01:15:00 PM Scheduled Provider:Elliott Solis MD [facility] Type:Cardiology Follow Up (FT) Appointment Date:10/30/2022 03:00:00 PM Scheduled Provider:Elliott Solis MD [facility] Type:Cardiology Follow Up (FT) Future Scheduled Tests Laboratory* Fecal WBC Lactoferrin 05/09/22 * Giardia lamblia, Direct Detection EIA 05/09/22 * O & P Exam, Routine 05/09/22 * Clostridium difficile by PCR 05/09/22 * Enteric Panel by PCR 05/09/22 * CBC w/ Auto Diff 05/09/22 * Comprehensive Metabolic Panel 05/09/22 [facility] Future Appointments Appointment Date:09/06/2022 01:15:00 PM Scheduled Provider:Elliott Solis MD [facility] Type:Cardiology Follow Up (FT) Appointment Date:10/30/2022 03:00:00 PM Scheduled Provider:Elliott Solis MD [facility] Type:Cardiology Follow Up (FT) Appointment Date:01/30/2023 01:20:00 PM Scheduled Provider:SHERI JIMENES PA-C Location:[facility] Appointment Type:URO Office Visit Future Scheduled Tests Laboratory* Fecal WBC Lactoferrin 05/09/22 * Giardia lamblia, Direct Detection EIA 05/09/22 * O & P Exam, Routine 05/09/22 * Clostridium difficile by PCR 05/09/22 * Enteric Panel by PCR 05/09/22 * CBC w/ Auto Diff 05/09/22 * Comprehensive Metabolic Panel 05/09/22 [facility] Future Appointments Appointment Date:10/30/2022 03:00:00 PM Scheduled Provider:Elliott Solis MD [facility] Type:Cardiology Follow Up (FT) Appointment Date:01/30/2023 01:20:00 PM Scheduled Provider:SHERI JIMENES PA-C Location:[facility] Appointment Type:URO Office Visit Future Scheduled Tests Laboratory* Fecal WBC Lactoferrin 05/09/22 * Giardia lamblia, Direct Detection EIA 05/09/22 * O & P Exam, Routine 05/09/22 * Clostridium difficile by PCR 05/09/22 * Enteric Panel by PCR 05/09/22 * CBC w/ Auto Diff 05/09/22 * Comprehensive Metabolic Panel 05/09/22 [facility] Future Appointments Appointment Date:10/23/2022 09:00:00 AM Scheduled Provider: [facility] Appoint[facility] Type:US Abdominal/Pelvis (FT) Appointment Date:10/29/2022 02:40:00 PM Scheduled Provider:Inessa Grajeda CNP Location:[facility] Appointment Type:BADH Follow Up Appointment Date:10/30/2022 03:00:00 PM Scheduled Provider:Elliott Solis MD [facility] Type:Cardiology Follow Up (FT) Appointment Date:10/31/2022 03:15:00 PM Scheduled Provider: Location:[facility] Appointment Type:Surgery PAT COVID Testing Appointment Date:11/07/2022 02:40:00 PM Scheduled Provider: Location:[facility] Appointment Type:Surgery FT Appointment Date:01/30/2023 01:20:00 PM Scheduled Provider:SHERI JIMENES PA-C Location:[facility] Appointment Type:URO Office Visit Future Scheduled Tests Laboratory* Fecal WBC Lactoferrin 05/09/22 * Giardia lamblia, Direct Detection EIA 05/09/22 * O & P Exam, Routine 05/09/22 * Clostridium difficile by PCR 05/09/22 * Enteric Panel by PCR 05/09/22 * CBC w/ Auto Diff 05/09/22 * Comprehensive Metabolic Panel 05/09/22 Radiology* US Abdomen Complete 10/23/22 [facility] evaluation + Plan note Future Appointments Appointment Date:10/30/2022 08:00:00 AM Scheduled Provider: [facility] Appointment Type:US Abdominal/Pelvis (FT) Appointment Date:10/30/2022 03:00:00 PM Scheduled Provider:Elliott Solis MD [facility] Type:Cardiology Follow Up (FT) Appointment Date:11/07/2022 02:40:00 PM Scheduled Provider: Location:[facility] Appointment Type:Surgery FT Appointment Date:12/10/2022 02:40:00 PM Scheduled Provider:Inessa Grajeda CNP Location:[facility] Appointment Type:BAD Follow Up Appointment Date:01/30/2023 01:20:00 PM Scheduled Provider:SHERI JIMENES PA-C Location:[facility] Appointment Type:URO Office Visit Future Scheduled Tests Laboratory* Clostridium difficile by PCR 05/09/22 * CBC w/ Auto Diff 05/09/22 * Comprehensive Metabolic Panel 05/09/22 Radiology* US Abdomen Complete 10/30/22 [facility] evaluation + Plan note Future Appointments Appointment Date:11/07/2022 02:40:00 PM Scheduled Provider: Location:[facility] Appointment Type:Surgery FT Appointment Date:11/09/2022 10:00:00 AM Scheduled Provider: [facility] Appointment Type:US Abdominal/Pelvis (FT) Appointment Date:12/10/2022 02:40:00 PM Scheduled Provider:Inessa Grajeda CNP Location:[facility] Appointment Type:BAD Follow Up Appointment Date:01/30/2023 01:20:00 PM Scheduled Provider:SHERI JIMENES PA-C Location:[facility] Appointment Type:URO Office Visit Future Scheduled Tests Laboratory* Clostridium difficile by PCR 05/09/22 * CBC w/ Auto Diff 05/09/22 * Comprehensive Metabolic Panel 05/09/22 Radiology* US Abdomen Complete 11/09/22 [facility] Future Appointments Appointment Date:12/10/2022 02:40:00 PM Scheduled Provider:Inessa Grajeda CNP Location:[facility] Appointment Type:BAD Follow Up Appointment Date:01/17/2023 09:50:00 AM Scheduled Provider: Location:[facility] Appointment Type:Surgery FT Appointment Date:01/30/2023 01:20:00 PM Scheduled Provider:SHERI JIMENES PA-C Location:[facility] Appointment Type:URO Office Visit Future Scheduled Tests Laboratory* Clostridium difficile by PCR 05/09/22 * CBC w/ Auto Diff 05/09/22 * Comprehensive Metabolic Panel 05/09/22 [facility] Future Appointments Appointment Date:01/30/2023 01:20:00 PM Scheduled Provider:SHERI JIMENES PA-C Location:[facility] Appointment Type:URO Office Visit Appointment Date:02/06/2023 02:00:00 PM Scheduled Provider:Inessa Grajeda CNP Location:[facility] Appointment Type:[facility] Follow Up Future Scheduled Tests Laboratory* Clostridium difficile by PCR 05/09/22 * CBC w/ Auto Diff 05/09/22 * CBC w/ Auto Diff 12/25/22 * Comprehensive Metabolic Panel 05/09/22 * Comprehensive Metabolic Panel 12/25/22 [facility] Future Appointments Appointment Date:06/14/2023 11:00:00 AM Scheduled Provider: [facility] Type:CV Holter/Event (FT) Appointment Date:07/25/2023 11:45:00 AM Scheduled Provider:Elliott SOLIS MD [facility] Type:Cardiology Follow Up (FT) Future Scheduled Tests Laboratory* Pancreatic Elastase, Fecal 01/29/23 * Fecal WBC Lactoferrin 01/29/23 * Giardia lamblia, Direct Detection EIA 01/29/23 * O & P Exam, Routine 01/29/23 * Clostridium Difficile PCR 01/29/23 * Enteric Panel by PCR 01/29/23 * CBC w/ Auto Diff 12/25/22 * Comprehensive Metabolic Panel 12/25/22 Radiology* Echo Transthoracic Complete 05/20/23 [facility] Future Appointments Appointment Date:07/25/2023 11:45:00 AM Scheduled Provider:Elliott SOLIS MD Location[facility] Appointment Type:Cardiology Follow Up (FT) Appointment Date:07/30/2023 02:00:00 PM Scheduled Provider:SHERI JIMENES PA-C Location:[facility] Appointment Type:URO Office Visit Future Scheduled Tests Laboratory* Pancreatic Elastase, Fecal 01/29/23 * Fecal WBC Lactoferrin 01/29/23 * Giardia lamblia, Direct Detection EIA 01/29/23 * O & P Exam, Routine 01/29/23 * Clostridium Difficile PCR 01/29/23 * Enteric Panel by PCR 01/29/23 * CBC w/ Auto Diff 12/25/22 * Comprehensive Metabolic Panel 12/25/22 Radiology* Echo Transthoracic Complete 05/20/23 [facility] Future Appointments Appointment Date:07/30/2023 02:00:00 PM Scheduled Provider:SHERI JIMENES PA-C Location:[facility] Appointment Type:URO Office Visit Future Scheduled Tests Laboratory* Pancreatic Elastase, Fecal 01/29/23 * Fecal WBC Lactoferrin 01/29/23 * Giardia lamblia, Direct Detection EIA 01/29/23 * O & P Exam, Routine 01/29/23 * Clostridium Difficile PCR 01/29/23 * Enteric Panel by PCR 01/29/23 * CBC w/ Auto Diff 12/25/22 * Comprehensive Metabolic Panel 12/25/22 Radiology* Echo Transthoracic Complete 05/20/23 [facility] Future Appointments Appointment Date:12/31/2023 01:00:00 PM Scheduled Provider:SHERI JIMENES PA-C Location:[facility] Appointment Type:URO Office Visit Future Scheduled [...] Date:01/01/2024 11:00:00 AM Scheduled Provider:Cady Alva PA-C Location:[facility] Appointment Type:Pain Management - Follow Up (FT) Appointment Date:01/30/2024 02:15:00 PM Scheduled Provider:En Carmen PA-C [facility] Type:Cardiology Follow Up (FT) Appointment Date:01/05/2025 01:00:00 PM Scheduled Provider:SHERI JIMENES PA-C Location:[facility] Appointment Type:URO Office Visit Future Scheduled [...] Date:03/05/2024 03:30:00 PM Scheduled Provider:Andrew Eid DO [facility] Appointment Type:Pain Management - Follow Up (FT) Appointment Date:07/30/2024 01:45:00 PM Scheduled Provider:Kehinde Davalos MD [facility] Type:Cardiology Follow Up (FT) Appointment Date:01/05/2025 01:00:00 PM Scheduled Provider:SHERI JIMENES PA-C Location:[facility] Appointment Type:URO Office Visit Future Scheduled Tests Radiology* Echo Transthoracic Complete 05/20/23 [facility] Future Appointments Appointment Date:08/26/2024 08:15:00 AM Scheduled Provider:Cady Alva PA-C Location:[facility] [place] Appointment Type:Pain Management - Follow Up (FT) Appointment Date:01/05/2025 01:00:00 PM Scheduled Provider:SHERI JIMENES PA-C Location:[facility] Appointment Type:URO Office Visit [facility] Evaluation + Plan note Future Appointments Appointment Date:01/21/2025 11:40:00 AM Scheduled Provider:SHERI JIMENES PA-C Location:[facility] Appointment Type:URO Office Visit [facility] evaluation + Plan note Future Appointments Appointment Date:03/19/2025 02:00:00 PM Scheduled Provider:En Carmen PA-C Location[facility] Appointment Type:Cardiology Follow Up (FT) [facility] evaluation + Plan note Future Appointments Appointment Date:09/17/2025 01:00:00 PM Scheduled Provider:En Carmen PA-C [facility] Appointment Type:Cardiology Follow Up (FT) Appointment Date:05/09/2026 02:30:00 PM Scheduled Provider:Donaldo PEARSON MD Location:[facility] Appointment Type:URO Office Visit Future Scheduled Tests Radiology* XR Abdomen 1 View 04/19/26 [facility] Evaluation noteNo assessment information available [facility] Work Phone: Evaluation noteNo InformationNort Fitly Other Evaluation note* Diagnosis Chronic bilateral low back pain with bilateral sciatica Diabetic peripheral neuropathy (CMS/HCC) Type II or unspecified type diabetes mellitus with neurological manifestations, not stated as uncontrolled Lumbar radiculopathy Thoracic or lumbosacral neuritis or radiculitis, unspecified [facility] Diagnosis Hav (hallux abducto valgus), right- Primary Plantar fasciitis Plantar fascial fibromatosis Diabetes 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 polyneuropathy, with long-term current use of insulin ([facility]) Contracture of right ankle Bone spur of right foot documented [facility]* Diagnosis Chronic bilateral low back pain with bilateral sciatica Diabetic peripheral neuropathy ([facility]) Type II or unspecified type diabetes mellitus with neurological manifestations, not stated as uncontrolled Lumbar radiculopathy Thoracic or lumbosacral neuritis or radiculitis, unspecified documented in this encounter [facility]Evaluation [facility]* Diagnosis Pain Generalized pain [facility] Right elbow pain Pain in joint, upper arm [facility] Diagnosis Xerosis cutis- Primary Other specified disease of sebaceous glands documented in this encounter [facility]* Diagnosis Acquired deformity of right toe- Primary Diabetes 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 polyneuropathy, with long-term current use of insulin ([facility]) documented in this encounter [facility]Evaluation note* Diagnosis Well woman exam with routine gynecological exam Routine gynecological examination H/O: hysterectomy Acquired absence of both cervix and uterus Osteoporosis, post-menopausal ([facility]) Senile osteoporosis documented in this encounter [facility]Evaluation note* Diagnosis Toe pain, left- Primary Pain in soft tissues of limb Toe pain, right Pain in soft tissues of limb Capsulitis of metatarsophalangeal (MTP) joint of right foot Paronychia, toe, right Paronychia of toe of left foot documented in this encounter [facility] HealthcareEvaluation note* Diagnosis Left knee pain, unspecified chronicity- Primary Arthritis of left knee Toe pain, left- Primary Pain in soft tissues of limb Toe pain, right Pain in soft tissues of limb Capsulitis of metatarsophalangeal (MTP) joint of right foot Paronychia, toe, right Paronychia of toe of left foot documented in this encounter [facility]* Diagnosis Left elbow pain- Primary Pain in joint, upper arm Left wrist pain Pain in joint, forearm Ulnar neuropathy at elbow of left upper extremity Carpal tunnel syndrome of left wrist documented in this encounter [facility]* Diagnosis Left wrist pain- Primary [...] HealthcareEvaluation note* Diagnosis Diabetes mellitus without complication ([facility])- Primary Type II or unspecified type diabetes [...] without aura without status migrainosus, not intractable ([facility]) Cognitive decline Lumbar radiculopathy Thoracic or lumbosacral neuritis or radiculitis, unspecified documented in this encounter [facility]* Diagnosis Anxiety- Primary Anxiety state, unspecified Diabetes mellitus without complication ([facility]) Type II or unspecified type diabetes mellitus without mention of complication, not stated as uncontrolled Essential hypertension Unspecified essential hypertension Mixed hyperlipidemia Medication management Chronic obstructive pulmonary disease, unspecified COPD type ([facility]) Abnormality of gait and mobility Current smoker [facility] Diagnosis Left knee pain, unspecified chronicity- Primary Arthritis of left knee Chronic pain of left knee documented in this encounter [facility]* Diagnosis Type 2 diabetes mellitus with hyperglycemia, without long-term current use of insulin ([facility]) [facility] Diagnosis Diabetes mellitus without complication ([facility])- Primary Type II or unspecified type diabetes mellitus without mention of complication, not stated as uncontrolled [facility]* Diagnosis Left knee pain, unspecified chronicity- Primary Arthritis of left knee Chronic pain of left knee documented in this encounter [facility] HealthcareEvaluation note* Diagnosis Pain in left leg- Primary documented [facility]* Diagnosis Onset Date Resolution Status Admit Date COPD (chronic obstructive pulmonary dise ase) acuteFebruary 2024 2:50pmDiastolic dysfunctionacuteFebruary 2024 2:50pmNicotine dependence, cigarettes, uncomplicatedacuteFebruary 2024 2:50pm [facility] Work Phone: Evaluation note* Diagnosis Type 2 diabetes mellitus with hyperglycemia, without long-term current use of insulin ([facility]) documented in this encounter [facility]* Diagnosis Lumbar radiculopathy- Primary Thoracic or lumbosacral neuritis or radiculitis, unspecified PHN (postherpetic neuralgia) ([facility]) Herpes zoster with other nervous system complications Diabetic peripheral neuropathy ([facility]) Type II or unspecified type diabetes mellitus with neurological manifestations, not stated as uncontrolled documented in this encounter [facility] HealthcareEvaluation note* Diagnosis Peripheral arterial disease ([facility])- Primary Unspecified peripheral vascular disease Anxiety Anxiety state, unspecified Medication monitoring encounter Encounter for therapeutic drug monitoring Contusion of right hip, initial encounter Candidal intertrigo Candidiasis of skin and nails Overweight documented in this encounter [facility]* Diagnosis Intractable chronic migraine without aura and without status migrainosus ([facility])- Primary Acquired deformity of right toe- Primary Diabetes 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 polyneuropathy, with long-term current use of insulin ([facility]) documented in this encounter [facility] HealthcareEvaluation note* Diagnosis Intractable chronic migraine without aura and without status migrainosus ([facility])- Primary Acquired deformity of right toe- Primary Diabetes 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 polyneuropathy, with long-term current use of insulin ([facility]) documented in this encounter [facility] HealthcareEvaluation note* Diagnosis Acquired deformity of right toe- Primary Diabetes 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 polyneuropathy, with long-term current use of insulin ([facility]) Downey neuroma, right documented in this encounter [facility] HealthcareEvaluation note* Diagnosis Downey neuroma, right- Primary Diabetes 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 polyneuropathy, with long-term current use of insulin ([facility]) Acquired deformity of right toe Paronychia, toe, right documented in this encounter [facility]* Diagnosis Cervical spondylosis without myelopathy- Primary [facility] Diagnosis Anxiety- Primary Anxiety state, unspecified Diabetes mellitus without complication ([facility]) Type II or unspecified type diabetes mellitus without mention of complication, not stated as uncontrolled Enthesopathy of elbow Unspecified enthesopathy of elbow documented in this encounter [facility]* Diagnosis Downey neuroma, right- Primary Acquired deformity of right toe Paronychia, toe, right Diabetes 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 polyneuropathy, with long-term current use of insulin ([facility]) documented in this encounter [facility]* Diagnosis Anxiety Anxiety state, unspecified documented in this encounter [facility]* Diagnosis Downey neuroma, right- Primary Downey neuroma, right- Primary Acquired deformity of right toe Paronychia, toe, right Diabetes 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 polyneuropathy, with long-term current use of insulin ([facility]) documented in this encounter [facility]* Diagnosis Downey neuroma, right- Primary Downey neuroma, right- Primary Acquired deformity of right toe Paronychia, toe, right Diabetes 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 polyneuropathy, with long-term current use of insulin ([facility]) documented in this encounter [facility] [...] long-term current use of insulin ([facility]) documented in this encounter [facility] [...] HealthcareEvaluation note* Diagnosis Diabetes mellitus without complication ([facility]) Type II or unspecified type diabetes mellitus without mention of complication, not stated as uncontrolled [facility] Diagnosis Chest wall pain- Primary Painful respiration Complex tear of medial meniscus of left knee, sequela Polyp of colon, unspecified part of colon, unspecified type Diabetes mellitus without complication ([facility]) Type II or unspecified type diabetes mellitus without mention of complication, not stated as uncontrolled [facility]* Diagnosis Intractable chronic migraine [...] of right ankle documented in this encounter [facility]* Diagnosis Incontinence of feces with fecal urgency- Primary Altered bowel habits Polyp of colon, unspecified part of colon, unspecified type documented in this encounter [facility]* Diagnosis Arthritis of left knee- Primary Acute pain of left knee documented in this encounter [facility]* Diagnosis Complex tear of medial meniscus of left knee, sequela documented in this encounter [facility]* Diagnosis Lumbosacral radiculopathy at L5- Primary Osteoarthritis, unspecified osteoarthritis type, unspecified site Diabetes mellitus without complication ([facility]) Type II or unspecified type diabetes mellitus without mention of complication, not stated as uncontrolled Chronic obstructive pulmonary disease, unspecified COPD type ([facility]) Anxiety Anxiety state, unspecified [facility]* Diagnosis Complex tear of medial meniscus of left knee, sequela documented in this encounter [facility]* Diagnosis Complex tear of medial meniscus of left knee, sequela documented [facility]* Diagnosis Complex tear of medial meniscus of left knee, sequela documented in this encounter [facility]* Diagnosis Type 2 diabetes mellitus with diabetic mononeuropathy, without long-term current use of insulin ([facility]) documented in this encounter [facility]* Diagnosis Anxiety Anxiety state, unspecified [facility]* Diagnosis Onset Date Resolution Status Admit Date COPD (chronic obstructive pulmonary dise ase) acuteSept2024 3:03pmDiastolic dysfunctionacuteSept2024 3:03pmNicotine dependence in remissionacuteSept2024 3:03pmPulmonary hypertensionacuteSept2024 3:03pm [facility] Work Phone: Evaluation note* Diagnosis Complex tear of medial meniscus of left knee, sequela documented in this encounter [facility]* Diagnosis Complex tear of medial meniscus of left knee, sequela documented in this encounter [facility]* Diagnosis Pre-operative clearance- Primary Unspecified pre-operative examination Complex tear of medial meniscus of left knee, sequela Essential hypertension Unspecified essential hypertension Generalized anxiety disorder Chronic obstructive pulmonary disease, unspecified COPD type ([facility]) Diabetes mellitus without complication ([facility]) Type II or unspecified type diabetes mellitus without mention of complication, not stated as uncontrolled documented in this encounter [facility]* Diagnosis Type 2 diabetes mellitus with hyperglycemia, without long-term current use of insulin ([facility]) documented [facility] System[facility] general Narrative - Reported* Type Description Date Medical History Hypertension Medical HistoryAgoraphobiaMedical HistoryHypokalemiaMedical HistoryCarpal tunnel Medical HistoryMigrainesMedical HistoryBipolarMedical HistoryAnxietyMedical HistoryPTSDMedical HistoryADHDMedical HistoryIBSMedical HistoryLactose IntolerantMedical HistoryFibromyalgiaMedical HistoryChronic painMedical History COPDMedical HistorySevere CELINE (2014) - intolerant to PAP therapyMedical History type II diabetesSurgical MacjnnkEoofsrhkrtyr5877Finqicda DfpcbqfFrfgzjkaxgo2785 Surgical HistoryUlnar nerve release [id number] HistorySinus pichtnj3192 Surgical HistoryCarpal tunnel tqzzogn8326Ojbmqjcn HistoryTarsal tunnel surgery 2012Surgical HistoryMortons Ftcgeajt8720Fpadqdcc HistoryMilk ducts removed from jwavjzb4908Zfxwkaqo UuoarylRaapgfszqer5433Lhujosnb HistoryIngrown toenail x 4 2014Surgical HistoryCT/MRISurgical Historybroken right foot toeSurgical History rt knee surgery /19/22Hospitalization HistoryHypokalemia, nausea, vomiting4-2015Hospitalization Historysee above surgical history [employer] Other History general Narrative - Reported* Type Description Date Medical History Hypertension Medical HistoryAgoraphobiaMedical HistoryHypokalemiaMedical HistoryCarpal tunnel Medical HistoryMigrainesMedical HistoryBipolarMedical HistoryAnxietyMedical HistoryPTSDMedical HistoryADHDMedical HistoryIBSMedical HistoryLactose IntolerantMedical HistoryFibromyalgiaMedical HistoryChronic painMedical History COPDMedical HistorySevere CELINE (2014) - intolerant to PAP therapyMedical History type II diabetesMedical HistoryEsophageal strictureSurgical HistoryHysterectomy 2006Surgical BylexghVyubmaicuci7943Uvpafqgg HistoryUlnar nerve release [id number] Surgical HistorySinus ppmricq9705Zmewepec HistoryCarpal tunnel jnvoczm7927 Surgical HistoryTarsal tunnel vymqrxg1725Jaeebhuc HistoryMortons Vyubfakf2380 Surgical HistoryMilk ducts removed from wpxeivn4640Rhzdbcha HistoryLithotripsy 1996Surgical HistoryIngrown toenail x 83888Wpoxwmgy HistoryCT/MRISurgical Historybroken right foot toeSurgical Historyrt knee surgery trjlxqafdqc95/19/22 Surgical HistoryEsophageal dilatationHospitalization HistoryHypokalemia, nausea, vomiting4-2014Hospitalization Historysee above surgical history [employer] Other Hospital course Narrative No data available for this section [facility] No data available for this section [facility] TownshipInstructionsNot on filedocumented in this encounter [facility] [...] data available for this section [facility] for referral (narrative)* Diagnostic Procedure Only (Routine) - ClosedSpecialtyDiagnoses / ProceduresReferred By ContactReferred To ContactXR IMAGING Diagnoses Pain Procedures XR SHOULDER GENERAL 3V OR MORE AP/TRUE AP/OTHER RT X-RAY SHOULDER COMPLET MIN 2 VIEWS Randi Farrell, DO [address] [place] [address] [place] [address] Referral IDStatusReasonStart DateExpiration DateVisits RequestedVisits [id number] Auto-Generated Referral / [facility] for referral (narrative)* Diagnostic Procedure Only (Routine) - ClosedSpecialtyDiagnoses / ProceduresReferred By ContactReferred To ContactXR IMAGING Diagnoses Right elbow pain Procedures XR ELBOW SPECIAL VIEWS AP/LAT/OTHER RT X-RAY ELBOW MINIMUM 3 VIEWS Randi Farrell, DO [address] [place] [address] [place] [address] Referral IDStatusReasonStart DateExpiration DateVisits RequestedVisits [id number] Auto-Generated Referral / [facility] for referral (narrative)* Consultation (Routine) - Pending ReviewSpecialtyDiagnoses / ProceduresReferred By ContactReferred To ContactPain Medicine Diagnoses Primary osteoarthritis of left knee Procedures AL OFFICE/OUTPATIENT [facility] 60 MINUTES Pastora Alcantara DO [address] [address] Candy Turner MD [address] [facility], [address], [place] [address] Referral IDStatusReasonStart DateExpiration DateVisits RequestedVisits [id number] Review Consult and Treat / [facility] for referral (narrative)* Consultation (Routine) - AuthorizedSpecialtyDiagnoses / ProceduresReferred By ContactReferred To ContactPain Medicine Diagnoses Primary osteoarthritis of left knee Procedures AL OFFICE/OUTPATIENT [facility] 60 MINUTES Pastora Alcantara DO [address] [facility] [address] [place] [address] Avi Maharaj MD [address] [place] [address] Referral IDStatusReasonStart DateExpiration DateVisits RequestedVisits [id number] Consult and Treat / [facility] for referral (narrative)No reason for referral information availableOhio[facility] Work Phone: [facility] Narrative* Diagnostic Procedure Only (Routine) - ClosedSpecialtyDiagnoses / ProceduresReferred By ContactReferred To ContactXR IMAGING Diagnoses Pain Procedures XR SHOULDER GENERAL 3V OR MORE AP/TRUE AP/OTHER RT X-RAY SHOULDER COMPLET MIN 2 VIEWS Randi Farrell, [address] [place] [address] X[address] [place] [address] Referral IDStatusReasonStart DateExpiration DateVisits RequestedVisits [id number] Auto-Generated Referral / [facility] for visit Narrative* Diagnostic Procedure Only (Routine) - ClosedSpecialtyDiagnoses / ProceduresReferred By ContactReferred To Contact XR IMAGING Diagnoses Right elbow pain Procedures XR ELBOW SPECIAL VIEWS AP/LAT/OTHER RT X-RAY ELBOW MINIMUM 3 VIEWS Randi Farrell, [address] [place] [address] [place] [address] Referral IDStatusReasonStart DateExpiration DateVisits RequestedVisits [id number] Auto-Generated Referral [facility] for visit Narrative* Rehabilitation - Outpatient (Routine) - AuthorizedSpecialtyDiagnoses / ProceduresReferred By Contact Referred To ContactPhysical Therapy Diagnoses Pain in left knee Procedures AL PHYSICAL THERAPY EVALUATION LOW COMPLEX 20 MINS AL OFFICE/OUTPATIENT [facility] 60 MINUTES Josseline Abad MD [address] [facility] [place] [address] Phone: tel: fax: [facility] [address] [place] [address] Phone: tel: fax: Referral IDStatusReasonStart DateExpiration DateVisits RequestedVisits [id number]/6/20257/ [facility] HealthcareReason for visit Narrative* Rehabilitation - Outpatient (Routine) - AuthorizedSpecialtyDiagnoses / ProceduresReferred By ContactReferred To ContactPhysical Therapy Diagnoses Pain in left knee Procedures AL PHYSICAL THERAPY EVALUATION LOW COMPLEX 20 MINS AL OFFICE/OUTPATIENT [facility] 60 MINUTES Josseline Abad MD [address] [facility] [place] [address] Phone: tel: fax: Gricelda Hammond, PT Referral IDStatusReasonStart DateExpiration DateVisits RequestedVisits [id number] Consult and Treat / [facility] HealthcareReason for visit Narrative* Rehabilitation - Outpatient (Routine) - AuthorizedSpecialtyDiagnoses / ProceduresReferred By ContactReferred To ContactPhysical Therapy Diagnoses Contusion of right shoulder, subsequent encounter Procedures AL PHYSICAL THERAPY EVALUATION LOW COMPLEX 20 MINS AL OFFICE/OUTPATIENT [facility] 60 MINUTES Robert Giron MD [address] [facility], [place] [address] Phone: tel: fax: [facility] [address] [place] [address] Phone: tel: fax: Referral IDStatusReasonStart DateExpiration DateVisits RequestedVisits [id number]/13/202511/ [facility] HealthcareReason for visit Narrative* Rehabilitation - Outpatient (Routine) - AuthorizedSpecialtyDiagnoses / ProceduresReferred By ContactReferred To ContactPhysical Therapy Diagnoses Contusion of right shoulder, subsequent encounter Procedures AL PHYSICAL THERAPY EVALUATION LOW COMPLEX 20 MINS AL OFFICE/OUTPATIENT [facility] 60 MINUTES Robert Giron MD [address] [facility], [place] [address] Phone: tel: fax: [facility] [address] [facility] [address] [place] [address] Phone: tel: fax: Referral IDStatusReasonStart DateExpiration DateVisits RequestedVisits [id number]/13/202512/ [facility] HealthcareReason for visit Narrative* Rehabilitation - Outpatient (Routine) - AuthorizedSpecialtyDiagnoses / ProceduresReferred By ContactReferred To ContactPhysical Therapy Diagnoses Mild ankle sprain, right, initial encounter Procedures AL OFFICE/OUTPATIENT [facility] 60 MINUTES Martin Arango, MERLEM [address] [address] Phone: tel: fax: Gricelda Hammond PT Referral IDStatusReasonStart DateExpiration DateVisits RequestedVisits [id number] Specialty Services Required /[id number] [facility] HealthcareReason for visit Narrative* Rehabilitation - Outpatient (Routine) - AuthorizedSpecialtyDiagnoses / ProceduresReferred By ContactReferred To ContactPhysical Therapy Diagnoses Mild ankle sprain, right, initial encounter Procedures AL OFFICE/OUTPATIENT [facility] 60 MINUTES Martin Arango DPM [address] [address] Phone: tel: fax: Gricelda Hammond, PT Referral IDStatusReasonStart DateExpiration DateVisits RequestedVisits [id number] Specialty Services Required [id number] [facility] Healthcare Summary Purpose Family History No Family History Records Found Relationship Condition Age at Onset Recorded Date/T corey Not Specified Malignant neoplasm Unknown HypertensionUnknownCoronary artery diseaseUnknownDiabetes mellitusUnknownbrother Malignant neoplasmUnknown Relationship Condition Age at Onset Recorded Date/T corey mother Malignant neoplasm Unknown HypertensionUnknownCoronary artery diseaseUnknownDiabetes mellitusUnknownHistory of ovarian cancerUnknownbrotherMalignant neoplasmUnknownfatherHeart disease UnknownDeceasedUnknownfamily memberDeceasedUnknown Advance Directives No Advanced Directives Records Found [...] r06.02 g47.36 j43.9 i51.89 November 13, 2 025 1:24pm Chief Complaint Admit Date f17.210 [...] hypertension April 26 3:03pm Reason for Referral SpecialtyDiagnoses / ProceduresReferred By ContactReferred To Contact Diagnoses Intractable chronic migraine without aura and without status migrainosus (CMS/HCC) Carlos Sanchez MD [address] [place] [address] Referral IDStatusReasonStart DateExpiration DateVisits RequestedVisits [id number] Review/[id number] / Procedures Referred By ContactReferred To ContactPhysical Therapy Diagnoses Arthritis of left knee Procedures AL OFFICE/OUTPATIENT [facility] 60 MINUTES Cj Zepeda, [employer] INSTRUCTOR [address] [facility] [address] [place] [address] Galo Coronado, PT [address] [facility] [address] [place] [address] Referral IDStatusReasonStart DateExpiration DateVisits RequestedVisits [id number] Review Specialty Services Required / Additional Source Comments INFORMATION SOURCE (unrecogn ized section and content) DATE CREATED AUTHOR 10/09/2021 [facility] DATE CREATED AUTHOR AUTHOR'S ORGANIZ ATION 02/22/2022 [facility] DATE CREATED AUTHOR AUTHOR'S ORGANIZ ATION 01/28/2023 [facility] DATE CREATED AUTHOR AUTHOR'S ORGANIZ ATION 06/26/2023 [facility] DATE CREATED AUTHOR AUTHOR'S ORGANIZ ATION 12/16/2024 [facility] DATE CREATED AUTHOR AUTHOR'S ORGANIZ ATION 12/17/2024 [facility] DATE CREATED AUTHOR AUTHOR'S ORGANIZ ATION 02/27/2025 [facility] DATE CREATED AUTHOR AUTHOR'S ORGANIZ ATION 03/14/2025 [facility] DATE CREATED AUTHOR AUTHOR'S ORGANIZ ATION 04/15/2025 [facility] DATE CREATED AUTHOR AUTHOR'S ORGANIZ ATION 04/24/2025 [facility] DATE CREATED AUTHOR AUTHOR'S ORGANIZ ATION 05/25/2025 [facility] DATE CREATED AUTHOR AUTHOR'S ORGANIZ ATION 06/11/2025 [facility] DATE CREATED AUTHOR AUTHOR'S ORGANIZ ATION 06/15/2025 [facility] Care Team (unrecognized sect ion and content) Team Status: Active Member Role Status Dates Robert Giron DO Primary Care Provider Active Team Status: Inactive Member Role Status Dates Robert Giron DO Primary Care Provider Active Valarie Herrera APRN ACNP-BCAttending ProviderActiveTeam MemberRelationship SpecialtyStart DateEnd Date Robert Giron MD [address] [place] [address] PCP - GeneralFamily Psbqpapk79/6/23 Team Status: Inactive Member Role Status Dates Robert Giron DO Primary Care Provider Active Start: March 31, 2024 End: March 31, 2024Valarie Herrera APRN ACNMarcos-BCAttending ProviderActiveStart: March 31, 2024 End: March 31, 2024Team MemberRelationshipSpecialtyStart DateEnd Date Robert Giron MD [address] [place], [place] [address] PCP - GeneralFamily Ljlxugyc41/6/23Team MemberRelationshipSpecialtyStart DateEnd Date Robert Giron MD [address], [place] [address] PCP - GeneralFamily Zjtaxsgs29/6/23Team MemberRelationshipSpecialtyStart DateEnd Date Robert Giron MD [address] [place] [address] PCP - GeneralFamily Lxxlmkys24/6/23Team MemberRelationshipSpecialtyStart DateEnd Date Robert Giron MD [address], [place] [address] PCP - Generalmily Ynxqyemn11/6/23Team MemberRelationshipSpecialtyStart DateEnd Date Robert Giron MD [address], [place] [address] PCP - Generalmily Xalzkdwr10/6/23Team MemberRelationshipSpecialtyStart DateEnd Date Robert Giron MD [address], [place] [address] PCP - Generalmily Gzfafkyj26/6/23Team MemberRelationshipSpecialtyStart DateEnd Date Robert Giron MD [address], [place] [address] PCP - Generalmily Vvvjmypo90/6/23Team MemberRelationshipSpecialtyStart DateEnd Date Robert Giron MD [address], [place] [address] PCP - Generalmily Jfovznmv07/6/23Team MemberRelationshipSpecialtyStart DateEnd Date Robert Giron MD [address], [place] [address] PCP - Generalmily [id number] MemberRelationshipSpecialtyStart DateEnd Date Robert Giron MD [address], [place] [address] PCP - [facility] Kkthvmru37/6/23Team MemberRelationshipSpecialtyStart DateEnd Date Robert Giron MD [address] [place] [address] PCP - [facility]07/24/23Team MemberRelationshipSpecialtyStart DateEnd Date Robert Giron MD [address], [place] [address] PCP - [facility]07/24/23Team MemberRelationshipSpecialtyStart DateEnd Date Robert Giron MD [address] [place] [address] PCP - [facility]07/24/23Team MemberRelationshipSpecialtyStart DateEnd Date Robert Giron MD [address], [place] [address] PCP - [facility] Haxlvxzb26/6/23Team MemberRelationshipSpecialtyStart DateEnd Date Robert Giron MD [address], [place] [address] PCP - [place] [address]/02/08Team MemberRelationshipSpecialtyStart DateEnd Date Robert Giron MD [address], [place] [address] PCP - Generalmily Solerhol56/6/23Team MemberRelationshipSpecialtyStart DateEnd Date Robert Giron MD [address], [place] [address] [facility] Zleadslr43/6/23Team MemberRelationshipSpecialtyStart DateEnd Date Robert Giron MD [address], [place] [address] PCP - [facility]07/24/23Team MemberRelationshipSpecialtyStart DateEnd Date Robert Giron MD [address], [place] [address] PCP - [facility] Gsgmztku52/6/23Team MemberRelationshipSpecialtyStart DateEnd Date Robert Giron MD [address], [place] [address] [facility] Bojpzddl94/6/23Team MemberRelationshipSpecialtyStart DateEnd Date Robert Giron MD [address], [place] [address] PCP - [facility] Wiysnjym67/6/23Team MemberRelationshipSpecialtyStart DateEnd Date Robert Giron MD [address], [place] [address] PCP - GeneralFamily Wrnwgtwp95/6/23Team MemberRelationshipSpecialtyStart DateEnd Date Robert Giron DO [address], [place] [address] PCP - GeneralFamily Medicine05/10/22Team MemberRelationshipSpecialtyStart DateEnd Date Robert Giron MD [address], [place] [address] PCP - Generalmily Jqfwrqtf07/6/23Team MemberRelationshipSpecialtyStart DateEnd Date Robert Giron MD [address], [place] [address] PCP - Generalmily Oeisfekc40/6/23Team MemberRelationshipSpecialtyStart DateEnd Date Robert Giron MD [address], [place] [address] PCP - Generalmily Qyqevtwu02/6/23Team MemberRelationshipSpecialtyStart DateEnd Date Robert Giron MD [address], [place] [address] PCP - Generalmily Jryeyjeu16/6/23Team MemberRelationshipSpecialtyStart DateEnd Date Robert Giron MD [address], [place] [address] PCP - GeneralFamily Qeferhqc49/6/23Team MemberRelationshipSpecialtyStart DateEnd Date Robert Giron MD [address], [place] [address] PCP - GeneralFamily Brdsgeap75/6/23Team MemberRelationshipSpecialtyStart DateEnd Date Robert Giron MD [address], [place] [address] PCP - Generalmily Upavztea76/6/23Team MemberRelationshipSpecialtyStart DateEnd Date Robert Giron DO [address], [place] [address] PCP - Generalmily Medicine05/10/22Team MemberRelationshipSpecialtyStart DateEnd Date Robert Giron DO [address], [place] [address] PCP - Generalmily Medicine05/10/22Team MemberRelationshipSpecialtyStart DateEnd Date Robert Giron DO [address], [place] [address] PCP - GeneralFamily Medicine05/10/22Team MemberRelationshipSpecialtyStart DateEnd Date Robert Giron DO [address], [place] [address] PCP - Generalmily Medicine05/10/22Team MemberRelationshipSpecialtyStart DateEnd Date Robert Giron DO [address], [place] [address] PCP - GeneralFamily Medicine05/10/22Team MemberRelationshipSpecialtyStart DateEnd Date Robert Giron MD [address], [place] [address] PCP - GeneralFamily Ftdccfrx59/6/23Team MemberRelationshipSpecialtyStart DateEnd Date Robert Giron DO [address], [place] [address] PCP - [facility] Medicine05/10/22 Team Status: Inactive Member Role Status Dates Robert Giron DO Primary Care Provider Active Start: October 12, 2024 End: October 12, 2024Heidi WILMA Herrera ACNP-BCAttending ProviderActiveStart: October 12, 2024 End: October 12, 2024Team MemberRelationshipSpecialtyStart DateEnd Date Robert Giron DO [address], [place] [address] PCP - Generalmily Medicine05/10/22Team MemberRelationshipSpecialtyStart DateEnd Date Robert Giron DO [address], [place] [address] PCP - Generalmily Medicine05/10/22Team MemberRelationshipSpecialtyStart DateEnd Date Robert Giron DO [address], [place] [address] PCP - Generalmily Medicine05/10/22Team MemberRelationshipSpecialtyStart DateEnd Date Robert Giron DO [address], [place] [address] PCP - GeneralFamily Medicine05/10/22Team MemberRelationshipSpecialtyStart DateEnd Date Robert Giron DO [address], [place] [address] PCP - Generalmi Medicine05/10/22Team MemberRelationshipSpecialtyStart DateEnd Date Robert Giron MD [facility] Gkmxxrlq94/6/23Team MemberRelationshipSpecialtyStart DateEnd Date Robert Giron MD [facility] - [facility] Rkxajcvt62/6/23 Team Status: Inactive Member Role Status Dates Robert Giron DO Primary Care Provider Active Start: November 13, 2024 End: November 13, 2024Heidi WILMA Herrera ACNP-BCAttending ProviderActiveStart: November 13, 2024 End: November 13, 2024Team MemberRelationshipSpecialtyStart DateEnd Date Robert Giron MD PCP - [facility] Urcqakyg67/6/23Team MemberRelationshipSpecialtyStart DateEnd Date Robert Giron MD [address], [place] [address] PCP - GeneralFamily Medicine11/19/24Team MemberRelationshipSpecialtyStart DateEnd Date Robert Giron MD [address], [place] [address] PCP - Generalmily Medicine11/19/24Team MemberRelationshipSpecialtyStart DateEnd Date Robert Giron MD [address], [place] [address] PCP - [facility]11/19/24Team MemberRelationshipSpecialtyStart DateEnd Date Robert Giron MD [address] [place] [address] PCP - [facility] Medicine11/19/24Team MemberRelationshipSpecialtyStart DateEnd Date Robert Giron DO [address], [place] [address] PCP - Generalmily Medicine05/10/22Team MemberRelationshipSpecialtyStart DateEnd Date Robert Giron DO [address], [place] [address] PCP - Generalmily Medicine05/10/22Team MemberRelationshipSpecialtyStart DateEnd Date Robert Giron MD [address], [place] [address] [facility] - [facility]11/19/24Team MemberRelationshipSpecialtyStart DateEnd Date Robert Giron MD [address], [place] [address] PCP - Generalmily Medicine11/19/24Team MemberRelationshipSpecialtyStart DateEnd Date Robert Giron DO [address], [place] [address] PCP - GeneralFamily Medicine05/10/22Team MemberRelationshipSpecialtyStart DateEnd Date Robert Giron MD [address], [place] [address] [facility]11/19/24Team MemberRelationshipSpecialtyStart DateEnd Date Robert Giron MD [address], [place] [address] PCP - Generalmily Medicine11/19/24Team MemberRelationshipSpecialtyStart DateEnd Date Robert Giron MD [address], [place] [address] PCP - Generalmily Medicine11/19/24Team MemberRelationshipSpecialtyStart DateEnd Date Robert Giron MD [address], [place] [address] PCP - Generalmily Medicine11/19/24Team MemberRelationshipSpecialtyStart DateEnd Date Robert Giron MD [address] [place] [address] PCP - GeneralFamily Medicine11/19/24Team MemberRelationshipSpecialtyStart DateEnd Date Robert Giron MD [address], [place] [address] PCP - Generalmily Medicine11/19/24Team MemberRelationshipSpecialtyStart DateEnd Date Robert Giron DO [address], [place] [address] PCP - GeneralFamily Medicine05/10/22Team MemberRelationshipSpecialtyStart DateEnd Date Robert Giron MD [address], [place] [address] PCP - Generalmily Medicine11/19/24Team MemberRelationshipSpecialtyStart DateEnd Date Robert Giron MD [address], [place] [address] PCP - Generalmily Medicine11/19/24Team MemberRelationshipSpecialtyStart DateEnd Date Robert Giron MD [address], [place] [address] PCP - Generalmily Medicine11/19/24Team MemberRelationshipSpecialtyStart DateEnd Date Robert Giron MD [address], [place] [address] PCP - Generalmily Medicine11/19/24Team MemberRelationshipSpecialtyStart DateEnd Date Robert Giron DO [address], [place] [address] PCP - GeneralFamily Medicine05/10/22Team MemberRelationshipSpecialtyStart DateEnd Date Robert Giron DO [address], [place] [address] PCP - GeneralFamily Medicine05/10/22Team MemberRelationshipSpecialtyStart DateEnd Date Robert Giron MD [address], [place] [address] PCP - GeneralFamily Medicine11/19/24Team MemberRelationshipSpecialtyStart DateEnd Date Robert Giron DO [address], [place] [address] PCP - Generalmily Medicine05/10/22Team MemberRelationshipSpecialtyStart DateEnd Date Robert Giron DO [address] [place] [address] PCP - GeneralFamily Medicine05/10/22Team MemberRelationshipSpecialtyStart DateEnd Date Robert Giron DO [address], [place] [address] PCP - Generalmily Medicine05/10/22Team MemberRelationshipSpecialtyStart DateEnd Date Robert Giron DO [address], [place] [address] PCP - GeneralFamily Medicine05/10/22Team MemberRelationshipSpecialtyStart DateEnd Date Robert Giron DO [address] [place] [address] P[facility] - [facility]05/10/22 Team Status: Inactive Member Role Status Dates Robert RosalineDO casey Primary Care Provider Active Start: April 13, 2025 End: April 13, 2025Herohan Herrera APRN ACNP-BCAttending ProviderActiveStart: April 13, 2025 End: April 13, 2025 Team Status: Inactive Member Role Status Dates Robert RosalineDO casey Primary Care Provider Active Start: April 26, 2025 End: April 26, 2025Herohan Herrera APRN ACNP-BCAttending ProviderActiveStart: April 26, 2025 End: April 26, 2025Team MemberRelationshipSpecialtyStart DateEnd Date Robert Giron DO [address] [place] [address] PCP - [facility] Medicine05/10/22Team MemberRelationshipSpecialtyStart DateEnd Date Robert Giron DO [address] [place] [address] [facility] - [facility]05/10/22Team MemberRelationshipSpecialtyStart DateEnd Date Robert Giron DO [address] [place] [address] PCP - Generalmily Medicine05/10/22Team MemberRelationshipSpecialtyStart DateEnd Date Robert Giron DO [address], [facility] [place] [address] PCP - GeneralFamily Medicine05/10/22Team MemberRelationshipSpecialtyStart DateEnd Date Robert Giron MD [address], [facility] [place] [address] PCP - Generalmily Medicine11/19/24 Goals (unrecognized section and content) Goals may be documented in a n alternate section REASON FOR VISIT (unrecogniz ed section and content) ReasonCommentsPainSpecialtyDiagnoses / ProceduresReferred By ContactReferred To ContactOrthopaedic Surgery Diagnoses Primary osteoarthritis of left knee Procedures 165 (Epic.EAP.ID) - Ambulatory referral to Orthopedic Surgery (Non-[facility]) Robert Giron MD [address], [facility] [place] [address] Phone: tel: fax: Jr. Jim Lerma DO [address] [facility] [address] [place] [address] Phone: tel: fax: Referral IDStatusReasonStart DateExpiration DateVisits RequestedVisits [id number] DateCommentsMed Refill 4ReasonCommentsConsultSurgery consultReasonOnset DateCommentspain 4ReasonOnset DateCommentsL knee pain4ReasonCommentsToenail ProblemRt 2nd toe nail issueReasonCommentsGynecologic ExamReasonCommentsIngrown ToenailB/L ingrown nailsSpecialtyDiagnoses / ProceduresReferred By Contact Referred To ContactPhysical Therapy Diagnoses Arthritis of left knee Procedures AL OFFICE/OUTPATIENT NEW HIGH MDM 60 MINUTES Apling, Cj B, [employer] [address] [place] [address] Galo Coronado, PT [address] [place] [address] Referral IDStatusReasonStart DateExpiration DateVisits RequestedVisits [id number] Specialty Services Required [id number] s/p tpnReason CommentsFollow-upRt pb/edl/avulsionReasonOnset DateCommentsMed Xjicat2708/13/2024 ReasonOnset DateCommentsCX PT / RS for ReasonOnset DateCommentsre: PT today09/04/2024ReasonOnset DateCommentsCX PT ReasonOnset Date CommentsMed Ilivul2509/15/2024ReasonCommentscontrolledReasonCommentsMed Refill ReasonOnset DateCommentsMed Cvpims1909/19/2024ReasonOnset DateCommentsSevere Tvgbrqjn63/06/2537KZ7209/29/2024ReasonOnset DateCommentsMed Orsfle6310/16/2024Reason Commentsdiscuss test results. Right hip painSleep study test need O2?ReasonOnset DateCommentsMed Xnhncv0710/22/2024ReasonOnset DateCommentsMed Jmubid8311/17/2024 ReasonCommentsFoot PainFt painReasonCommentsFollow-upRt injReasonCommentsBack PainNeck PainKnee PainReasonCommentscontrolled medicationReasonCommentsConsent Or InstructionspreopReasonOnset DateCommentsPT Initial Eval12/29/2024all Back 12/30/2024ReasonCommentsPost-op15d s/p rt 2nd neurectomyReasonOnset DateComments Med Fklehj4201/21/2025ReasonOnset DateCommentsMed Rqlftw4501/25/2025ReasonOnset Date CommentsCx PT today06/13/2025ReasonOnset DateCommentsMed Tnwdav6301/29/2025Reason CommentsFollow-upRt ankle sprainReasonOnset DateCommentsCx PT today02/08/2025 ReasonOnset DateCommentsMed Vmmhyr5802/06/2025ReasonCommentsER/ Chest painReason CommentsAnkle PainReasonCommentsFollow-upFECAL INCONTINENCE, LAST COLON 01/17/23, REF BY DR. GIRONPT REPORTS HX OF IBS & STATES THAT SHEWILL BE CONSTIPATED FOR DAYS THEN INCONTINENCE TO FOLLOWAbdominal CrampingSpecialtyDiagnoses / ProceduresReferred By ContactReferred To ContactGeneral Surgery Diagnoses Polyp of colon, unspecified part of colon, unspecified type Robert Giron, DO [address] [facility], [facility] [place] [address] Phone: tel: fax: Karlos Quinones, DO [address] [place] [address] Phone: tel: fax: Referral IDStatusReasonStart DateExpiration DateVisits RequestedVisits [id number] Specialty Services Required 1ReasonOnset DateCommentsMed Lxbfsk0303/12/2025ReasonOnset Date CommentsMed Vpzuas5703/15/2025ReasonCommentscontrolled medicationsReasonOnset Date CommentsMed Fevqes0603/21/2025ReasonOnset DateCommentssurgery pypjklsvm71/05/2025 ReasonOnset DateCommentsMed Mxlflv1203/28/2025ReasonOnset DateCommentsMed Refill 04/04/2025ReasonOnset DateCommentsMed Bxspwc9104/08/2025ReasonOnset DateComments Med Aqtxnq1204/18/2025ReasonOnset DateCommentsMed Jtaqlc1804/21/2025ReasonOnset Date CommentsMed Hmtdfi0104/25/2025ReasonOnset DateCommentsMed Wnotmq5105/03/2025Reason Onset DateCommentsMed Nxzfhy6105/10/2025ReasonOnset DateCommentsMed Refill 05/17/2025ReasonCommentsUT/ Total knee replacementReasonOnset DateCommentsMed Iddmmg0805/21/2025ReasonOnset DateCommentsConcerning OP PO PT; dos Source Comments (unrecognize d section and content) In the event this informatio n is protected by the Federal Confidentiality of Alcohol and Drug Abuse Patient Records regulations: The Federal rules restrict any use of the information to criminally investigate or prosecute any alcohol or drug abuse patient.[facility] FOR RECORDS PERTAINING TO PATIENTS [...] BE BASED ON THE PRIMARY CLINICAL RECORDS. [facility]. provides no warranty or guarantee of the accuracy or completeness of information in this document.
--- OUTSIDE RECORDS SUMMARY | 2025-06-15 19:53 | XMS_ITS | Clinical Summary ---
Author Organization [facility] Address [address] [place] [address] Care Team Providers Care Real Estate Recruiter Name Role Phone Robert Hathaway DO Primary Care Provider [phone] Allergies Active AllergyReactionsCriticalityNoted KlenPqqlxbnuQlbmnmzbBjlrZvl15/16/2012 Adhesive Tape-SiliconesOther,OxekXzl8508/06/2014 rash OdtlHrekw36/10/2024 Facial numbness/tongue numbness/ denied AmitriptylineNausea And Vomiting,KiujvLziabx00/20/2013 Other Reaction(s): Abnormal Behavior, Mental Status Change, other, Vomiting hallucinate hallucinate AtomoxetineGI intolerance,Other,GxgxyzeyerluFlzaob91/13/2011 Other Reaction(s): GI Disturbance, Other: See Comments palpitations Other Reaction(s): Other (See Comments), Unknown (atomoxetine) palpitations (atomoxetine) BupropionGI intolerance,Other,FllzjvicdlfcGxwtso19/13/2011 Other Reaction(s): GI Disturbance, other, Other: See Comments palpitations palpitations CodeineHives,Other,VocrErgk25/13/2011 Other Reaction(s): Other, Unknown Dexamethasone (Pf)Other07/30/2019 Don't remember TyqbvqfllzHaidzWtzn41/12/2019 Hair fall off DoxycyclineGI intolerance,Other,ItqydvxxtmkqVnvonz03/13/2011 Other Reaction(s): GI Disturbance, Other, Other: See Comments, Unknown palpitations palpitations DuloxetineHives,Dkwgfkk2207/30/2019 Doesn't remember Eicosapentaenoic TzzcHtzco19/26/2017Fish Containing ProductsHives,RashHigh 03/16/2012Fluticasone Propion-SalmeterolItching,Palpitations,Rash,UnknownLow 10/08/2012 Other Reaction(s): Unknown GabapentinOther,FhhhnthIpbbrj82/12/2019 Other Reaction(s): Unknown IbuprofenOther,Nausea And Vomiting,QymcGhs5611/02/2011 Other Reaction(s): GI Disturbance, Unknown Iodinated Contrast PnzmoWrzcmhlsgwdRlwr62/19/2024 Patient started to have SOB and felt faint KetorolacHives,Other,CstblckYvnu31/10/2011 Severe stomach cramping Other Reaction(s): Other: See Comments Other reaction(s): Other: See Comments Abdominal pain Abdominal pain Abdominal pain Other reaction(s): Other: See Comments Abdominal pain MeloxicamNausea And Vomiting,QtjlrqrHurkeq48/12/2019 Other Reaction(s): Unknown MethadoneGI intolerance,Nausea And Vomiting,TizzaKcd20/13/2011 Other Reaction(s): GI Disturbance, other, Vomiting, Vomiting Other reaction(s): Vomiting Other reaction(s): Vomiting MethocarbamolOther,Iolsbac5611/12/2022 Other Reaction(s): Other (See Comments), Unknown MilnacipranHives,Other,Xafghvk9705/25/2022Moxifloxacin-Sod.Chloride(Iso)Unknown 02/28/2015Nitrofurantoin Monohyd/M-CrystOther,XnbuQiu50/07/2022OtherHivesHigh 08/06/2014 Other Reaction(s): other OxcarbazepineGI intolerance,Hives,Other,Palpitations,RvqzmfbLjemac93/13/2011 palpitations ParoxetineHives,Other,EiscmegDbcl09/22/2023PenicillinsGI intolerance,Hives, Nausea And Vomiting,Other,WyrsikdMyf16/13/2011 Other Reaction(s): GI Disturbance, Other (See Comments), Unknown, Vomiting, Vomiting, Vomiting Other Reaction(s): other Other Reaction(s): GI Disturbance, Unknown, Vomiting PregabalinHallucinations,Other,Palpitations,IklnyifEel31/20/2013 Other Reaction(s): Mental Status Change, other, Unknown hallucinate hallucinate FwuaczmhyvLxseqZdlnad37/12/2019 Other Reaction(s): Altered mental status Shellfish Containing CtbruptsItnmGfl52/12/2019Sodium Chloride-Aloe VeraOther 08/28/2023 Facial numbness/tongue numbness Sulfamethoxazole-TrimethoprimHives,Nausea And DlfmyikyMkaw08/12/2019 Other Reaction(s): Vomiting TopiramateGI intolerance,Nausea And Vomiting,Other,HvujvwxUww07/01/2012Verapamil GI intolerance,Nausea And Vomiting,Other,TfxyamydwcqzThh47/20/2013Ziprasidone Hives,Other,Palpitations,DxradzkDbzura64/13/2011 palpitations Other Reaction(s): other, Unknown Medications MedicationSigDispense QuantityRefillsLast FilledStart DateEnd DateStatus furosemide (LASIX ORAL) Take 20 mg by mouth in the morning.06/16/2021ctive metFORMIN (Glucophage) 500 mg tablet Take 500 mg by mouth with breakfast.Active cetirizine (ZyrTEC) 10 mg tablet Take 1 tablet by mouth in the morning.Active montelukast (Singulair) 10 mg tablet Take 10 mg by mouth in the evening.Active omeprazole (PriLOSEC) [address] capsule Take 40 mg by mouth at bedtime.Active orphenadrine (Norflex) 100 mg 12 hr tablet Take 100 mg by mouth at bedtime.Active solifenacin (VESIcare) 10 mg tablet Take 10 mg by mouth in the morning.Active alendronate (Fosamax) 70 mg tablet Take 70 mg by mouth every 7 (seven) days.Active ARIPiprazole (Abilify) 15 mg tablet Take 15 mg by mouth in the morning.Active atorvastatin (Lipitor) 80 mg tablet Take 1 tablet by mouth in the morning.12/27/2022ctive carvedilol (Coreg) 25 mg tablet Take 0.5 tablets by mouth in the morning and at bedtime.Active dilTIAZem CD (Cardizem CD) 120 mg 24 hr capsule Take 120 mg by mouth in the morning.Active ALPRAZolam (Xanax) 1 mg tablet Take 1 tablet by mouth if needed in the morning, at noon, and at bedtime. 05/27/2024ctive meclizine (Antivert) 25 mg tablet Take 25 mg by mouth if needed in the morning, at noon, and at bedtime.07/02/2022 Active loperamide (Imodium A-D) 2 mg tablet Take 2 mg by mouth every 12 (twelve) hours if needed.Active albuterol 90 mcg/actuation inhaler Inhale 2 puffs every 6 (six) hours if needed for wheezing.Active naloxone (Narcan) 4 mg/0.1 mL nasal spray Indications:Post-op painAdminister 1 spray (4 mg) into affected nostril(s) if needed for opioid reversal. May repeat every 2-3 minutes if needed, alternating nostrils, until medical assistance becomes available. 2 each ctive Additional Information Patient not taking.Reported on 05/31/2025 ondansetron (Zofran) 4 mg tablet Take 4 mg by mouth every 8 (eight) hours if needed for nausea or vomiting.Active fremanezumab (Ajovy Syringe) 225 mg/1.5 mL prefilled syringe Inject 225 mg under the skin every 28 (twenty-eight) days. Next dose 10-Active rimegepant (Nurtec ODT) 75 mg tablet,disintegrating Take 75 mg by mouth if needed.Active diphenhydrAMINE (BENADryl) 25 mg capsule Take 25 mg by mouth every 6 (six) hours if needed for itching.Active EPINEPHrine (AUVI-Q) 0.15 mg/0.15 mL inj auto-injector injection Inject 1 Syringe into the shoulder, thigh, or buttocks if needed for anaphylaxis.Active aspirin 81 mg EC tablet Indications:Status post left knee replacementTake 1 tablet (81 mg) by mouth in the morning for 28 days. This medication is for prevention of blood clots, not for pain relief. Do not stop taking until prescription runs out. 28 tablet /5Active oxyCODONE-acetaminophen (Percocet) 5-325 mg tablet Indications:Status post left knee replacementTake 1 tablet by mouth every 6 (SIX) (six) hours if needed for severe pain (8-10 pain score) for upto 5 (FIVE) days 21 tablet 5Active HYDROcodone-acetaminophen ([place]) 5-325 mg tablet Indications:Status post left knee replacementTake 1 tablet by mouth every 4 (four) hours if needed for severe pain (8-10 pain score) for up to 5days. 28 tablet Discontinued sennosides-docusate sodium (Alee-Colace) 8.6-50 mg tablet Indications:Status post left knee replacementTake 1 tablet by mouth in the morning for 7 days. Take while taking narcotic pain medications 7 tablet /Discontinued aspirin 81 mg EC tablet Indications:Status post left knee replacementTake 1 tablet (81 mg) by mouth in the morning for 28 days. This medication is for prevention of blood clots, not for pain relief. Do not stop taking until prescription runs out. 28 tablet /Discontinued cephalexin (Keflex) 500 mg capsule Indications:Status post left knee replacementTake 1 capsule (500 mg) by mouth four times daily for 5 days. 20 capsule Discontinued cephalexin (Keflex) 500 mg capsule Indications:Status post left knee replacementTake 1 capsule (500 mg) by mouth four times daily for 5 days. 20 capsule /Expired HYDROcodone-acetaminophen ([place]) 5-325 mg tablet Indications:Status post left knee replacementTake 1 tablet by mouth every 4 (four) hours if needed for severe pain (8-10 pain score) for up to 5days. 28 tablet Discontinued(Stop Taking at Discharge) sennosides-docusate sodium (Alee-Colace) 8.6-50 mg tablet Indications:Status post left knee replacementTake 1 tablet by mouth in the morning for 7 days. Take while taking narcotic pain medications 7 tablet /Expired oxyCODONE-acetaminophen (Percocet) 5-325 mg tablet Indications:Status post left knee replacementTake 1 tablet by mouth every 6 (six) hours if needed for severe pain (8-10 pain score) for up to 5 days. 21 tablet /Discontinued(Reorder) oxyCODONE-acetaminophen (Percocet) 5-325 mg tablet Indications:Status post left knee replacementTake 1 tablet by mouth every 6 (six) hours if needed for severe pain (8-10 pain score) for up to 5 days. 21 tablet /Discontinued(Reorder) oxyCODONE-acetaminophen (Percocet) 5-325 mg tablet Indications:Status post left knee replacementTake 1 tablet by mouth every 6 (six) hours if needed for severe pain (8-10 pain score) for up to 5 days. 21 tablet Discontinued Active Problems ProblemNoted DateDiagnosed DateStatus post total left knee upabwsjyoog89/16/2025 Left knee pain05/20/2025Primary osteoarthritis of both knees05/20/2025OSA (obstructive sleep apnea)08/03/2024Left arm pain06/16/2024 Encounters DateTypeDepartmentCare DopwXlwmykxsdnq38/25/2025Ref[address] [place] [address] Loco Napier MD Status post left knee /22/2025[address] [place] [address] Loco Napier MD Status post left knee lvgcballdqp03/21/2025Ref[address] [place] [address] Dianne Palacios MA Status post left knee mzecuyhnokl98/16/2025Orders Only [address] [place] [address] Loco Napier MD Status post left knee vtombqzcgqr07/14/2025Telephone [address] [place] [address] Maya Rodriguez, [place] Pain06/01/2025Telephone [address] [place] [address] Maya Rodriguez, RN 06/01/2025Telephone [address] [place] [address] Maya Rodriguez, RN 05/31/2025 7:31 AM EDTAnesthesia Event [facility] Main Operating Room [address] [place] [address] Uyen Liao MD Meehl, Austin, MD 05/31/2025 7:30 AM EDT - 05/31/2025 10:30 AM EDTSurgery [facility] Main Operating Room [address] [place] [address] Emiliana Abad MD ROBOT-ASSISTED KNEE ARTHROPLASTY [[id number] (CPT??)]05/31/2025 5:36 AM EDT - 05/31/2025 12:37 PM EDTHospital Encounter [facility] Main Operating Room [address] [place] [address] Emiliana Abad MD Status post left knee replacement (Primary Dx) Discharge Disposition: Home or Self Care ()05/31/20255935Skubyt72/09/2025[facility] [place] [address] Светлана Walters LISW-S 05/26/2025 2:30 PM EDTPre-Admission Testing [facility] Pre-Anesthesia Clinic [address] [place] [address] [place] [address] 05/26/2025 2:20 PM EDTLab [facility] [address] [place] [address] [place] [address] Pre-op evaluation; Clotting ecfhhgqt11/08/3044Dssuhi39/06/2025[facility]phone [facility] [place] [address] Maya Rodriguez, [place] 05/18/2025 12:08 PM EDT - 05/18/2025 11:59 PM EDTHospital Encounter [facility] [place] [id number] Primary osteoarthritis of both knees Discharge Disposition: Home or Self Care ()05/14/2025bstract [facility] AUTHORIZATION DEPARTMENT [address] [place] [phone] Emiliana Abad MD 05/07/2025Telephone [facility] [address] [place] [address] [place] [address] Michael Angel MA 05/06/2025Telephone [address] [place] [address] Michael Angel MA 05/05/2025 10:22 AM EDT - 05/05/2025 11:59 PM EDTHospital Encounter [facility] [address] [place] [address] [place] [phone] Left knee pain, unspecified chronicity Discharge Disposition: Home or Self Care ()05/05/2025 10:15 AM EDTFollow-Up [address] [place] [address] Emiliana Abad MD Primary osteoarthritis of both knees (Primary Dx); Left knee pain, unspecified chronicity; Genu varum of left lower extremity; Weakness of left quadriceps muscle; Parkinson's disease without dyskinesia or fluctuating manifestations (CMS/HCC) 05/03/2025Telephone [address] [place] [phone] Sandra Polanco MA from Last 3 Months Social History Tobacco UseTypesPacks/DayYears UsedDateSmoking Tobacco: FormerCigarettes Smokeless Tobacco: Never Tobacco Cessation:Counseling Given: Not Answered Alcohol UseStandard Drinks/WeekCommentsNot Currently0 (1 standard drink = 0.6 oz pure alcohol)Humiliation, Afraid, Rape, and Kick questionnaireAnswerDate RecordedWithin the last year, have you been afraid of your partner or ex-partner?No11/03/2024Emotionally AbusedNot on file11/03/2024Physically Abused Not on file11/03/2024Sexually AbusedNot on 11/03/2024PHQ-2AnswerDate RecordedPatient Health Questionnaire-2 Isqes707CommentsNoSex and Gender InformationValueDate RecordedSex Assigned at KcidmUkmgbh89/29/2024 3:16 PM EDTLegal CpxKrnwju28/29/2022 9:51 PM EDTGender CcwjzhijOzhqva01/29/2024 3:16 PM EDTSexual OrientationChoose not to doqgzvyt65/30/2025 12:08 PM EDT Last Filed Vital Signs Vital SignReadingTime TakenCommentsBlood Hfnanwmx702/7505/31/2025 12:10 PM EDT Oczya284505/31/2025 12:10 PM LDGUrnptbvchin48.6 ??C (97.9 ??F)05/31/2025 9:57 AM EDTRespiratory Sxds8413 12:10 PM EDTOxygen Jdymrrrjby34%05/31/2025 12:10 PM EDTInhaled Oxygen Concentration--Mdfczu52 kg (156 lb 8.4 oz)05/31/2025 6:03 AM URCTchqua604.6 cm (5' 4 )05/31/2025 6:03 AM EDTBody Mass Index26.8705/31/2025 6:03 AM EDT Plan of Treatment DateTypeDepartmentCare Team (Latest Contact Info)Xygqnuwjbws02/29/2025 11:00 AM EDTAppointment [facility] [address] [place] [address] [place] [address] 06/16/2025 11:30 AM EDTOffice Visit [facility] [address] [place] [address] [place] [address] Emiliana Abad MD [address] [place] [address] [place] [address] Health MaintenanceDue DateLast DoneCommentsCT Ysndtdsvqfxf1970Diabetes: Hemoglobin A1C1970FIT-DNA1970FIT1970FOBT1970 Tgzmvtdwhhzmv1970Diabetes: Retinopathy Ebeortnhl72/10/1980Hepatitis B Vaccines (1 of 3 - 19+ 3-dose series)1989Adult Jkuyvyw2007/28/1992HPV/Cotest 07/28/20002228Xynmzamvt61/10/2010COVID-19 Vaccine ( season)2025 05/12/2024, 06/24/2023Influenza Vaccine (#1)509/, 05/12/2024, 06/24/2023, Additional history existsDepression Mimikqyus98/ Diabetes: Urine Protein Fngqrsaen58/29/780561/, 3Cervical Cancer Waikgqffg68/11/2027Pap Smear/7552Dstrgkhvluj64/01/203306/08/2022, 03/14/2020Colorectal Cancer Rdvywawps40/01/2033Pneumococcal Vaccine: Pediatrics (0 to 5 Years) and At-Risk Patients (6 to 64 Years)Kyncexogo28/24/2024Zoster XftbpgddEbzxvsumf17/24/2024, 03/09/2024HIB VaccinesAged OutNo longer eligible based on patient's age to complete this topicHPV VaccinesAged OutNo longer eligible based on patient's age to complete this topicIPV VaccinesAged OutNo longer eligible based on patient's age to complete this topicMeningococcal B VaccineAged OutNo longer eligible based on patient's age to complete this topic Meningococcal VaccineAged OutNo longer eligible based on patient's age to complete this topicRotavirus VaccinesAged OutNo longer eligible based on patient's age to complete this topic Medical Devices ImplantedTypeAreaManufacturerDevice IdentifierShelf Expiration DateModel / Serial / LotCement,Bone,R,1x40us - [id number] Implanted:Qty: 1 on 05/31/2025 by Emiliana Abad MD at [facility] CementLeft: [id number]/31/2028 [id number] / / [id number],Bone,R,1x40us - [id number] Implanted:Qty: 1 on 05/31/2025 by Emiliana Abad MD at [facility] CementLeft: [id number]/31/2028 [id number] / / [id number],[place],#3 - [id number] Implanted:Qty: 1 on 05/31/2025 by [facility] JointLeft: Leslee [id number] 12/15/[id number] / / [id number],Triathlon,X3,46l92ch - [id number] Implanted:Qty: 1 on 05/31/2025 by [facility] JointLeft: Leslee [id number] 11/01/[id number] / / [id number] Posterior Stabilized Femoral Left Implanted:Qty: 1 on 05/31/2025 by [facility] JointLeft: [facility]igenAD[facility]ALTH [facility] [id number] / / [id number] X3 Tibial Bearing Insert Ps Implanted:Qty: 1 on 05/31/2025 by [facility]iana [facility] JointLeft: XigenPEPEFree-lance.ru [id number] / / [id number] Procedures Procedure NamePriorityDate/TimeAssociated DiagnosisCommentsXR KNEE 1-2 VIEWS RZCNMrsaljf75/13/2025 10:38 AM EDT POCT GLUCOSE METER UNSOLICITED XHGCQDUUsyuylb57/13/2025 10:09 AM EDT NV AN ELECTIVE ENDOTRACHEAL CUVPYKRjzfvhz23/13/2025 7:45 AM EDT NV ARTHRP KNE CONDYLE&PLATU MEDIAL&LAT JBMNYOHMTGFV02/13/2025 7:34 AM EDT Left knee pain, unspecified chronicity Primary osteoarthritis of both knees CHG US GUIDANCE NEEDLE PLACEMENT IMG S&UDopuiat90/13/2025 7:14 AM EDT POCT GLUCOSE METER UNSOLICITED MQCKDKXFvrrrmd98/13/2025 6:18 AM EDT URINALYSIS MICROSCOPIC WITH REFLEX KTBYFZMCafvxor49/08/2025 2:21 PM EDT Pre-op evaluation CBC WITH AUTO DHQPJXWMTOTXMtnpvkj79/08/2025 2:21 PM EDT Pre-op evaluation URINALYSIS WITH REFLEX XAASKSCOzzroml80/08/2025 2:21 PM EDT Pre-op evaluation TYPE AND MOQJZPYykmlhk56/08/2025 2:21 PM EDT Pre-op evaluation PROTIME-JIAQnszxnp31/08/2025 2:21 PM EDT Clotting disorder UFPVOslswon31/08/2025 2:21 PM EDT Clotting disorder COMPREHENSIVE METABOLIC IUEDNTwnvwci39/08/2025 2:21 PM EDT Pre-op evaluation CBC AND OLUERGAHWPLHRdasyit65/08/2025 2:21 PM EDT Pre-op evaluation URINE HOAENHYCqguxgt62/08/2025 2:21 PM EDT Pre-op evaluation MRSA/MSSA DNA DDIGHGdklswo19/08/2025 2:21 PM EDT Pre-op evaluation CT KNEE LEFT WO IV HMDDMNNLPwjeqik87/30/2025 12:31 PM EDT Primary osteoarthritis of both knees XR KNEE 4+ VIEWS PKSQZaugwjq58/17/2025 10:27 AM EDT Left knee pain, unspecified chronicity from Last 3 Months Results * XR knee 1 or 2 views left (05/31/2025 10:38 AM EDT)Anatomical RegionLaterality ModalityLower Extremities, KneeLeftComputed RadiographySpecimen (Source) Anatomical Location / LateralityCollection Method / VolumeCollection Time Received Time05/31/2025 10:44 AM EDT Impressions 05/31/2025 10:45 AM EDT * Interval placement of knee arthroplasty in good position with no hardware complication. Postoperative changes noted in the soft tissues. Electronically signed: Brody Daniels MD. Narrative 05/31/2025 10:45 AM EDT XR KNEE 1-2 VIEWS LEFT Clinical information: Knee pain. Comparison: 05/05/25. Procedure Note Brody Daniels MD - 05/31/2025 XR KNEE 1-2 VIEWS LEFT Clinical information: Knee pain. Comparison: 05/05/25. IMPRESSION: *Interval placement of knee arthroplasty in good position with nohardware complication. Postoperative changes noted in the soft tissues. Electronically signed: Brody Daniels MD. Authorizing ProviderResult TypeResult Lakesha GANG XR PROCEDURES Final Result * (ABNORMAL) POCT glucose meter (05/31/2025 10:09 AM EDT) Only the most recent of2 resultswithin the time period is included. ComponentValueRef RangeTest MethodAnalysis TimePerformed AtPathologist Signature Glucose UMW504(H)70 - 105 mg/dL05/31/2025 10:20 AM EDTINS[facility] ([facility]) Comment:reoqsds7Lofzkmtv (Source)Anatomical Location / LateralityCollection Method / VolumeCollection TimeReceived TimeBloodCapillary blood specimen / Vvmvdci7605/31/2025 10:09 AM EDT1 10:20 AM EDT Narrative [facility] ([facility]) - 05/31/2025 10:20 AM EDT Waived Testing in the ED is performed under the ED CLIA certificate #[id number]. Authorizing ProviderResult TypeResult Lakesha STEVENSON BLOOD ORDERABLESFinal ResultPerforming OrganizationAddressCity/State/ZIP CodePhone Number [facility] ([facility]) [address] [place] [address] * NV AN ELECTIVE ENDOTRACHEAL AIRWAY (05/31/2025 7:45 AM EDT) Donaldo Echavarria CAA - 05/31/2025 7:45 AM EDT PANDA Santos 05/31/2025 7:53 AM Airway Date/Time: 05/31/2025 7:45 AM Reason: elective Airway not difficult General Information and Staff Patient location during procedure: OR Anesthesiologist: Uyen Liao MD Resident/AIRPLANE TESTER/PANDA: PANDA Santos Performed: resident/AIRPLANE TESTER/PANDA Patient Condition Indications for airway management: anesthesia [...] Comments Eyes taped after induction, before airway management Authorizing ProviderResult TypeResult StatusSasamara Liao MDANESTHESIA ORDERABLES Final Result * CHG US GUIDANCE NEEDLE PLACEMENT IMG S&I (05/31/2025 7:14 AM EDT) Uyen Almonte MD - 05/31/2025 7:14 AM EDT Uyen Liao MD 05/31/2025 9:07 AM Peripheral Block Patient location during procedure: pre-op Start time: 05/31/2025 7:14 AM End time: 05/31/2025 7:29 AM Reason for block: at surgeon's request and post-op pain management Staffing Performed: anesthesiologist Anesthesiologist: Uyen Liao MD Resident/AIRPLANE TESTER: PANDA Santos Preanesthetic Checklist Completed: patient identified, [...] ultrasound Paresthesia pain: none Heart rate change: no Authorizing ProviderResult TypeResult StatusUyen Yannivance VALDOVINOSNESTHESIA ORDERABLES Edited Result - Final * (ABNORMAL) Urinalysis microscopic with reflex culture (05/26/2025 2:21 PM EDT) ComponentValueRef RangeTest MethodAnalysis TimePerformed AtPathologist SignatureRBC, Urine0-2None Seen, 0-2 /HPF05/26/2025 2:55 PM [facility] ([facility])WBC, Urine0-2None Seen, 0-2 /HPF05/26/2025 2:55 PM [facility] ([facility])Squamous Epithelial, UrineMany(A)None Seen, Occasional, Few /LP05/26/2025 2:55 PM [facility] ([facility])Mucus, UrineOccasional None Seen, Occasional, Few /LP05/26/2025 2:55 PM [facility] ([facility])Specimen (Source)Anatomical Location / LateralityCollection Method / VolumeCollection TimeReceived TimeUrineUrine specimen obtained by clean catch procedure / UnknownNon-blood Collection / Gkyakro7005/26/2025 2:21 PM EDT 05/26/2025 2:35 PM EDT Narrative Authorizing ProviderResult TypeResult StatusEmiliana STEVENSON URINE ORDERABLESFinal ResultPerforming OrganizationAddressCity/State/ZIP CodePhone Number [facility] ([facility]) [address] [place] [address] * (ABNORMAL) Urinalysis with reflex culture (05/26/2025 2:21 PM EDT)Component ValueRef RangeTest MethodAnalysis TimePerformed AtPathologist SignatureColor, UrineColorlessColorless, Yellow, Light-Onqqhq4805/26/2025 2:51 PM [facility] ([facility])Clarity, YywhqHtisxSbbsk70/08/2025 2:51 PM [facility] ([facility])pH, Urine5.05.0 - 8.0 pH05/26/2025 2:51 PM [facility] ([facility])Leukocytes, UrineSmall(A)Roceeacx08/08/2025 2:51 PM EDT [facility])Nitrite, YmqttCtulfbpaEwbqscuf20/08/2025 2:51 PM EDT [facility])Protein, UrineNegativeNegative mg/dL05/26/2025 2:51 PM [facility] ([facility])Glucose, UrineNormalNormal mg/dL05/26/2025 2:51 PM [facility] ([facility])Bilirubin, UrineNegativeNegative 05/26/2025 2:51 PM [facility] ([facility])Specific Kiefer, Urine1.006 (L)1.010 - 1.1533205/26/2025 2:51 PM [facility] ([facility])Ketones, Urine NegativeNegative mg/dL05/26/2025 2:51 PM [facility] ([facility])Blood, ThzymFqhgptpbAcdbcqil25/08/2025 2:51 PM [facility] [facility]) Urobilinogen, UrineNormalNormal mg/dL05/26/2025 2:51 PM [facility] ([facility])Specimen (Source)Anatomical Location / LateralityCollection Method / VolumeCollection TimeReceived TimeUrineUrine specimen obtained by clean catch procedure / UnknownNon-blood Collection / Sguorfu8405/26/2025 2:21 PM EDT 05/26/2025 2:35 PM EDT Narrative Authorizing ProviderResult TypeResult StatusEmiliana STEVENSON URINE ORDERABLESFinal ResultPerforming OrganizationAddressCity/State/ZIP CodePhone Number [facility] ([facility]) [address] [place] [address] * (ABNORMAL) CBC auto differential (05/26/2025 2:21 PM EDT)ComponentValueRef RangeTest MethodAnalysis TimePerformed AtPathologist SignatureAuto WBC9.024.00 - 10.60 10*3/uL05/26/2025 2:57 PM [facility] ([facility])RBC3.883.80 - 5.00 10*6/uL05/26/2025 2:57 PM [facility] ([facility])Wvwjzjatom83.412.0 - 15.0 g/dL05/26/2025 2:57 PM [facility] ([facility])Xnujihisfp14.436.0 - 45.0 %05/26/2025 2:57 PM [facility] ([facility])MCV99.0(H)82.0 - 98.0 fL05/26/2025 2:57 PM [facility] ([facility])MCH34.5(H)27.0 - 33.0 pg 05/26/2025 2:57 PM [facility] ([facility])MCHC34.932.0 - 35.0 g/dL 05/26/2025 2:57 PM [facility] ([facility])RDW13.411.5 - 15.0 %05/26/2025 2:57 PM [facility] ([facility])Neutrophils %48.740.0 - 72.0 %05/26/2025 2:57 PM [facility] ([facility])Lymphocytes %41.820.0 - 45.0 %05/26/2025 2:57 PM [facility] ([facility])Monocytes %7.35.0 - 12.0 %05/26/2025 2:57 PM [facility] ([facility])Eosinophils %0.80.0 - 6.0 %05/26/2025 2:57 PM [facility] ([facility])Basophils %1.1(H)0.0 - 1.0 %05/26/2025 2:57 PM [facility] ([facility])Neutrophils Absolute4.391.60 - 7.60 10*3/uL 05/26/2025 2:57 PM [facility] ([facility])Lymphocytes Absolute3.771.20 - 4.00 10*3/uL05/26/2025 2:57 PM [facility] ([facility])Monocytes Absolute 0.660.10 - 1.00 10*3/uL05/26/2025 2:57 PM [facility] ([facility]) Eosinophils Absolute0.070.00 - 0.50 10*3/uL05/26/2025 2:57 PM [facility] ([facility])Basophils Absolute0.100.00 - 0.20 10*3/uL05/26/2025 2:57 PM EDT [facility] ([facility])Ejuvvrglh350637 - 400 10*3/uL05/26/2025 2:57 PM EDT [facility] ([facility])nRBC %0.00 %05/26/2025 2:57 PM [facility] ([facility])Immature Granulocytes %0.30.0 - 1.0 %05/26/2025 2:57 PM [facility] ([facility])Immature Granulocytes Absolute0.030.00 - 0.20 10*3/uL 05/26/2025 2:57 PM [facility] ([facility])Specimen (Source)Anatomical Location / LateralityCollection Method / VolumeCollection TimeReceived Time BloodVenous blood specimen / UnknownVenipuncture / Fbmessp0305/26/2025 2:21 PM EDT1 2:39 PM EDT Narrative Authorizing ProviderResult TypeResult StatusEmiliana STEVENSON BLOOD ORDERABLESFinal ResultPerforming OrganizationAddressCity/State/ZIP CodePhone Number [facility] ([facility]) [address] [place] [address] * (ABNORMAL) MRSA nasal swab (05/26/2025 2:21 PM EDT)ComponentValueRef RangeTest MethodAnalysis TimePerformed AtPathologist SignatureMSSA DNANegativeNegative 05/28/2025 7:39 AM [facility] ([facility])MRSA DNAPositive(A)Negative 05/28/2025 7:39 AM [facility] ([facility])Specimen (Source)Anatomical Location / LateralityCollection Method / VolumeCollection TimeReceived Time SwabNasal structure / UnknownNon-blood Collection / Xvfxdku2905/26/2025 2:21 PM EDT1 2:32 PM EDT Narrative [facility] ([facility]) - 05/28/2025 7:39 AM EDT Testing methodology is an automated qualitative in vitro diagnostic test for the direct detection and differentiation of Staphylococcus aureus (SA) DNA and methicillin- resistant Staphylococcus aureus (MRSA) DNA from nasal swabs in patients at risk for nasal colonization. The test utilizes real-time polymerase chain reaction (PCR) for the amplification of MRSA/SA DNA and fluorogenic target-specific hybridization probes for the detection of the amplified DNA. A negative result does not preclude nasal colonization. Authorizing ProviderResult TypeResult Lakesha STEVENSON MICROBIOLOGY - GENERAL ORDERABLESFinal ResultPerforming OrganizationAddressCity/State/ZIP Code Phone Number [facility]) [address] [place] [address] * APTT (05/26/2025 2:21 PM EDT)ComponentValueRef RangeTest MethodAnalysis Time Performed AtPathologist HyxpabcelyFBD88.425.0 - 35.0 Intyxza3405/26/2025 3:15 PM [facility] ([facility])Comment:Clinical significance of the APTT is questionable in the presence of heparin.Specimen (Source)Anatomical Location / LateralityCollection Method / VolumeCollection TimeReceived TimeBloodVenous blood specimen / UnknownVenipuncture / Zqouatx3805/26/2025 2:21 PM EDT1 2:39 PM EDT Narrative Authorizing ProviderResult TypeResult StatusEmiliana STEVENSON BLOOD ORDERABLESFinal ResultPerforming OrganizationAddressCity/State/ZIP CodePhone Number [facility]) [address] [place], [place] [id number] * Protime-INR (05/26/2025 2:21 PM EDT)ComponentValueRef RangeTest MethodAnalysis TimePerformed AtPathologist GueftlxcvGkdetry82.012.3 - 14.8 Tkxbfcr3105/26/2025 3:14 PM [facility])INR0.980.90 - 1.101 3:14 PM EDT [facility] ([place])Comment: [facility] THERAPY CONDITION ?INR PROPHYLAXIS OF VENOUS THROMBOSIS ? 2-3 (HIGH-RISK SURGERY) TREATMENT OF VENOUS THROMBOSIS ? 2-3 TREATMENT OF PULMONARY EMBOLISM ?2-3 PREVENTION OF SYSTEMIC EMBOLISM: ? 2-3 ?ACUTE MYOCARDIAL INFARCTION ?TISSUE HEART VALVES ?VALVULAR HEART DISEASE ?ATRIAL FIBRILLATION ?RECURRENT SYSTEMIC EMBOLISM MECHANICAL HEART VALVE ? 2.5-3.5 FROM: ORAL ANTICOAGULANTS. ??MECHANISM OF ACTION, CLINICAL EFFECTIVENESS, AND OPTIMAL THERAPEUTIC RANGE. ??CHEST 1995;108:231S-246S. Specimen (Source)Anatomical Location / LateralityCollection Method / Volume Collection TimeReceived TimeBloodVenous blood specimen / UnknownVenipuncture / Hlxmuly8005/26/2025 2:21 PM EDT1 2:39 PM EDT Narrative Authorizing ProviderResult TypeResult StatusEmiliana STEVENSON BLOOD ORDERABLESFinal ResultPerforming OrganizationAddressCity/State/ZIP CodePhone Number [facility] [place]) [address] [place] [address] * Type and screen (05/26/2025 2:21 PM EDT)ComponentValueRef RangeTest Method Analysis TimePerformed AtPathologist SignatureABO OdeaittsH32/08/2025 3:55 PM [facility]Rh SkfjWEX6805/26/2025 3:55 PM [facility]LO[facility] BANKAb ScrnNEG 05/26/2025 3:55 PM [facility] BLOOD BANKSpecimen (Source)Anatomical Location / LateralityCollection Method / VolumeCollection TimeReceived TimeBloodVenous blood specimen / UnknownVenipuncture / Aviomjz5805/26/2025 2:21 PM EDT1 2:40 PM EDT Narrative Authorizing ProviderResult TypeResult StatusEmiliana STEVENSON BLOOD BANK TEST ORDERABLESFinal ResultPerforming OrganizationAddressCity/State/ZIP CodePhone Number [facility] * Urine culture, routine (05/26/2025 2:21 PM EDT)ComponentValueRef RangeTest MethodAnalysis TimePerformed AtPathologist SignatureUrine Culture<10,000 CFU/ML No Significant Growth LONA 05/28/2025 8:14 AM [facility] ([facility])Specimen (Source)Anatomical Location / LateralityCollection Method / VolumeCollection TimeReceived TimeUrine Urine specimen obtained by clean catch procedure / UnknownNon-blood Collection / Vgblgkc3405/26/2025 2:21 PM EDT1 2:35 PM EDT Narrative Authorizing ProviderResult TypeResult StatusEmiliana STEVENSON MICROBIOLOGY - GENERAL ORDERABLESFinal ResultPerforming OrganizationAddressCity/State/ZIP Code Phone Number [facility] ([place]) [address] [place], [place] [phone] * (ABNORMAL) Comprehensive metabolic panel (05/26/2025 2:21 PM EDT)Component ValueRef RangeTest MethodAnalysis TimePerformed AtPathologist SignatureSodium 381760 - 145 mmol/L1 3:10 PM [facility] ([place])Potassium 4.03.5 - 5.1 mmol/L1 3:10 PM [facility] ([place])Grqyzypy791 98 - 107 mmol/L1 3:10 PM [facility] ([facility])AZ76368 - 31 mmol/L1 3:10 PM [facility] ([facility])Anion Tmb531 - 20 mmol/L 05/26/2025 3:10 PM [facility] ([facility])BUN6(L)7 - 25 mg/dL05/26/2025 3:10 PM [facility] ([facility])Creatinine1.050.60 - 1.20 mg/dL05/26/2025 3:10 PM [facility] ([facility])BUN/Creatinine Ratio5.710 3:10 PM [facility] ([facility])Pgmdvgy876(H)70 - 100 mg/dL05/26/2025 3:10 PM [facility] ([facility])Calcium9.78.6 - 10.3 mg/dL05/26/2025 3:10 PM [facility] ([facility])RUM9049 - 39 U/L1 3:10 PM [facility] ([facility])ALT (SGPT)237 - 52 U/L1 3:10 PM [facility] ([facility]) Alkaline Vwpqfdcoyhs4342 - 104 U/L1 3:10 PM [facility] ([facility])Total Protein7.56.0 - 8.3 g/dL05/26/2025 3:10 PM [facility] ([facility])Albumin4.63.5 - 5.7 g/dL05/26/2025 3:10 PM [facility] ([facility])Total Bilirubin0.70.3 - 1.0 mg/dL05/26/2025 3:10 PM [facility] ([facility])eGFR63.1>60.0 mL/min/1.73m* 3:10 PM [facility] ([facility])Comment:The [facility]???s estimated glomerular filtration rate (eGFR) will no longer include consideration of race in its calculation. The National Kid[employer] Foundation???s eGFR Task Force developed new recommendations for the estimation of the glomerular filtration rate in the [place] They recommend immediate implementation of the new equation refit without the race variable in all laboratories because the calculation does not include race. In addition to not including race in the calculation and reporting, it included diversity in its development, and has acceptable performance characteristics and potential consequences that do not disproportionately affect any one group of individuals.Specimen (Source) Anatomical Location / LateralityCollection Method / VolumeCollection Time Received TimeBloodVenous blood specimen / UnknownVenipuncture / Unknown 05/26/2025 2:21 PM EDT1 2:40 PM EDT Narrative Authorizing ProviderResult TypeResult StatusEmiliana STEVENSON BLOOD ORDERABLESFinal ResultPerforming OrganizationAddressCity/State/ZIP CodePhone Number [facility] ([place]) [address] [place] [address] * CT knee left wo IV contrast (05/18/2025 12:31 PM EDT)Anatomical Region LateralityModalityLower Extremities, KneeLeftComputed TomographySpecimen (Source)Anatomical Location / LateralityCollection Method / VolumeCollection TimeReceived Time05/19/2025 9:53 AM EDT Impressions 05/19/2025 10:05 AM EDT 1. Degenerative changes as described. Small to moderate left knee joint effusion. 2. This exam was performed for preoperative planning purposes. Electronically signed: Jean-Pierre Silvestre. Narrative 05/19/2025 10:[address] KNEE LEFT WO IV CONTRAST 05/18/2025 12:22 [...] effusion. Lateral patellar tilt. No discrete fracture. Procedure Note Jean-Pierre Silvestre MD - 05/19/2025 CT KNEE LEFT WO IV CONTRAST 05/18/2025 12:22 PM CLINICAL INDICATIONS: Primary osteoarthritis of both knees, preoperative planning for robotic left total knee arthroplasty TECHNIQUE: Multidetector CT axial images were obtained without IVcontrast including of the left hip, left knee, and left ankle for preoperativeplanning purposes. All CT scans at this facility use dose modulation, iterative reconstruction, and/or weight based dosing when appropriate to reduceradiation dose to as low as reasonably achievable COMPARISON: Left knee radiographs 05/05/2025 FINDINGS: Degenerative changes of the left hip and left knee. Small moderate left suprapatellar joint effusion. Lateral patellar tilt. No discretefracture. IMPRESSION: 1. Degenerative changes as described. Small to moderate left knee joint effusion. 2. This exam was performed for preoperative planning purposes. Electronically signed: Jean-Pierre Silvestre. Authorizing ProviderResult TypeResult StatusVijeff Abad MDIM CT PROCEDURES Final Result * XR knee 4+ views left (05/05/2025 10:27 AM EDT)Anatomical RegionLaterality ModalityLower Extremities, KneeLeftComputed RadiographySpecimen (Source) Anatomical Location / LateralityCollection Method / VolumeCollection Time Received Time05/06/2025 1:05 PM EDT Impressions 05/06/2025 1:07 PM EDT Worsening medial compartment degenerative joint disease and loss of joint space with otherwise no gross acute osseous injury or significant joint effusion Electronically signed: Sami Grider. Narrative 05/06/2025 1:07 PM EDT XR KNEE 4+ VIEWS LEFT 05/05/2025 10:25 AM CLINICAL INDICATIONS: ??Chronic left knee pain COMPARISON: 03/27/2024 MRI exam FINDINGS: There is no acute osseous injury. There is moderate degenerative disease with asymmetric loss of the medial compartment joint space. There is no significant joint effusion. Procedure Note Sami Grider MD - 05/06/2025 XR KNEE 4+ VIEWS LEFT 05/05/2025 10:25 AM CLINICAL INDICATIONS: Chronic left knee pain COMPARISON: 03/27/2024 MRI exam FINDINGS: There is no acute osseous injury. There is moderate degenerative diseasewith asymmetric loss of the medial compartment joint space. There is nosignificant joint effusion. IMPRESSION: Worsening medial compartment degenerative joint disease and loss of jointspace with otherwise no gross acute osseous injury or significant jointeffusion Electronically signed: Sami Grider. Authorizing ProviderResult TypeResult StatusVijeff Abad MDIMPamela XR PROCEDURES Final Result from Last 3 Months Additional Health Concerns InfectionOnset DateLast UhiaenwhuTHVS64/08/183543 Insurance Care Teams Team MemberRelationshipSpecialtyStart DateEnd Date Robert Hathaway DO [address] [facility], [place] [address] PCP - GeneralFamily Zdtmsfyn38/29/24
[2025-06-15] MEDS: OXYCODONE HCL/ACETAMINOPHEN 5MG/325MG 1 TAB PO (20:30)
--- OUTSIDE RECORDS SUMMARY | 2025-08-04 20:00 | XMS_ITS | Clinical Summary ---
Author Organization Unknown Care Team Providers Care Dairy Chemist Name Role Phone ELSY WALSH, JOSSELINE Unavailable Unavailable DO RN, NICHOLAS Unavailable Unavailable NEGRA PRODUCTION SUPPORT SPECIALIST, ZAHEER Unavailable Unavailable COPPUS TELETYPESETTER MONITOR, ANA Unavailable Unavailable GOSCHE OT, ERIC Unavailable Unavailable MAREK PT, MARYAM Unavailable Unavailable KOHLAINE PRODUCTION SUPPORT SPECIALIST, LILIAM Unavailable Unavailabl e LINDA PT, NERY Unavailable Unavailable SHAHZAD RN, BILLY Unavailable Unavailabl phyllis GARCES RN, SAUMYA Unavailable Unavailable JORGE L RN, DEE Unavailable Unavailable RUPINDER PRODUCTION SUPPORT SPECIALIST, GILLIAN Unavailable Unavailable ROONEY PRODUCTION SUPPORT SPECIALIST, SHARAD Unavailable Unavailabl e Payers Payer Name Policy Type Policy Number Effective Date Expira tion Date FORMERLY [facility] [id number] Problems Condition Name Condition Details Condition Category Status Onset Date Resolution Date Last Treatment Date Treating Clinician Comments AFTERCARE FOLLOWING JOINT REPLACEMENT HENDRICKSON ARAM Vkqjtp7544-93-03 00:00:00PRESENCE OF LEFT ARTIFICIAL KNEE FGPXXIttxoz2408-64-25 00:00:00UNILATERAL PRIMARY OSTEOARTHRITIS, RIGHT HNVISuedje9662-14-81 00:00:00 DEPENDENCE ON SUPPLEMENTAL YCVQFGFszznj0819-10-29 00:00:00LONG TERM (CURRENT) USE OF TVHMLINKssvul6830-86-30 00:00:00LONG TERM (CURRENT) USE OF ORAL HYPOGLYCEMIC RECMXBisfqo1054-74-25 00:00:00OTHER WAITER/[facility] (CURRENT) DRUG GXXSAPIPobyqt9734-49-88 00:00:00 Allergies, Adverse Reactions, Alerts Allergy Name Allergy Type Status Severity Reaction(s) Onset Date Inactive Date Treating Clinician Comments AMITRIPTYLINE Propensity to adverse reactions Active 2025-06-08 09:08:12ATOMOXETINE HCLPropensity to adverse reactionsActive 2025-06-08 09:06:55BUPROPIONPropensity to adverse rzbaasciyFzwztu2335-61-22 09:07:03CODEINEPropensity to adverse yyvlzjoglZkgylz9379-55-01 09:06:42 DEXAMETHASONEPropensity to adverse jqkoomtomFshfge9811-38-53 09:08:58DOXYCYCLINE Propensity to adverse tvrqbkllyXcyxiq2423-09-61 09:07:39DULOXETINEPropensity to adverse acfiurzwmVmdlkz5716-64-49 09:09:08EICOSAPENTAENOIC ACIDPropensity to adverse tbipdpsiqEqzazd9889-55-03 09:09:32FISH DERIVED PRODUCTSPropensity to adverse ttfuhuwofHjvaqm3609-73-62 09:09:44FLUTICASONEPropensity to adverse ltdnxiaczJzqgah1262-72-13 09:09:51GABAPENTINPropensity to adverse reactions Ekqvlc3088-10-25 09:07:48KETOLORACPropensity to adverse reactionsActive 2025-06-08 09:10:01MELOXICAMPropensity to adverse tybqsfbefUctrui9431-87-38 09:10:11METHOCARBAMOLPropensity to adverse zwqqttexvSpfnhl9944-06-28 09:10:27 OXCARBAZEPINEPropensity to adverse kxvysymdfUajgdp4280-85-06 09:07:56PENICILLIN Propensity to adverse answzoubcZmhqbs8358-89-25 09:10:59ROPINIROLEPropensity to adverse sthkkostvKuljdc0703-76-92 09:11:17SULFAAMETHOXAZOLE-TRIMETHOPRIM Propensity to adverse hxbgvkrhrNkirhr3196-71-84 09:11:27ZIPRASIDONEPropensity to adverse azdfmpvspZhuszz2409-77-60 09:08:05TOPRIMATEPropensity to adverse zyrfnyiryCuxnxx0969-32-71 09:11:48VERAPAMILPropensity to adverse reactionsActive 2025-06-08 09:12:08AMOXICILLINPropensity to adverse jkklefazzAeomjf8941-05-91 09:12:13IBUPROFENPropensity to adverse pdcwhwqtnVgpepo5875-01-10 09:12:24 METHADONEPropensity to adverse kgkiijixvLallng6927-41-99 09:12:35NITROFURANTION Propensity to adverse fwlizraskNgmshp5607-28-21 09:12:47PREGABALINPropensity to adverse aqrgwfkamGnscaf7435-96-20 09:12:54SHELLFISHPropensity to adverse wtqfoewzmCjzqiu5082-08-13 09:13:02ADHESIVESPropensity to adverse reactionsActive 2025-06-08 09:13:10NEURONTINPropensity to adverse yiwrnnigtQjttyo6803-34-66 09:13:34IV CONTRASTPropensity to adverse areqeyeriAamxoi1678-79-77 09:13:41AYR SALINEPropensity to adverse dbmprepbrGccmnw7270-81-60 10:26:18 Vital Signs Vital Name Observation Time Observation Value Commen ts Temperature 2025-06-15 14:14:00.000 97.6 [degF] Ffufdieoxxn4883-00-29 11:08:00.07828.5 [degF]Bdmiwnlpmdl3046-74-64 11:38:00.000 97.8 [degF]Dueqshwsgxn9865-79-82 15:43:00.07705.4 [degF]Csrrcqfnxkw1959-01-84 11:27:00.93067.1 [degF]Eibhhebmniq0128-59-82 13:12:00.33939.3 [degF]Temperature 2025-06-07 15:42:00.67227.4 [degF]Tvergnhfcvm8471-29-73 10:57:00.78330 [degF]BMI (%)2025-06-07 10:57:00.19209 kg/b0Jepltt9077-77-79 10:57:00.62352 [in_us]Pulse 2025-06-15 14:14:00.88718 /sjsYjmbo2959-40-91 11:08:00.56855 /pikVgsdj5728-17-29 11:38:00.05911 /xwtJptmg3341-23-78 15:43:00.10754 /okaAmosm3007-56-65 11:27:00.94068 /lkiTevjk8710-17-95 13:12:00.76699 /txaRvkww5980-16-35 15:42:00.05615 /hraNcdhu7303-15-88 10:57:00.15000 /minO2 Saturation (%) 2025-06-15 14:14:00.89661 %O2 Saturation (%)2025-06-15 11:08:00.690678 %O2 Saturation (%)2025-06-14 11:38:00.11379 %O2 Saturation (%)2025-06-11 15:43:00.01575 %O2 Saturation (%)2025-06-10 11:27:00.09947 %O2 Saturation (%) 2025-06-09 13:12:00.05330 %O2 Saturation (%)2025-06-07 15:42:00.38099 %O2 Saturation (%)2025-06-07 10:57:00.73643 %Nhnlyuzjkkab3954-68-07 14:14:00.79912 /tfsFywmondvxquy7075-34-49 11:08:00.14631 /kepWreqprlgzbat5591-60-19 11:38:00.99745 /ffiStfbxltemdlx3873-88-30 15:43:00.20869 /minRespirations 2025-06-10 11:27:00.03978 /zwxLfbxcfushzsl3395-48-03 13:12:00.75323 /min Kuhjkvwfdetw2343-29-76 15:42:00.72460 /hunSvavrkeemxtq4167-82-18 10:57:00.11870 /minWeight (lbs)2025-06-07 10:57:00.057373 [lb_av]Systolic Blood Pressure 2025-06-15 14:14:00.722565 mm[Hg]Systolic Blood Qrdqnfpc7563-79-03 11:08:00.000 132 mm[Hg]Systolic Blood Yvvlqbix2729-67-09 11:38:00.685169 mm[Hg]Systolic Blood Sxwobgpb7400-57-58 15:43:00.525208 mm[Hg]Systolic Blood Putnkumk7522-93-46 11:27:00.377843 mm[Hg]Systolic Blood Moxspcgv5071-11-03 13:12:00.071071 mm[Hg] Systolic Blood Nhcjavcr5871-18-94 15:42:00.035280 mm[Hg]Systolic Blood Pressure 2025-06-07 10:57:00.074927 mm[Hg]Diastolic Blood Ubzfuybv8876-75-91 14:14:00.000 65 mm[Hg]Diastolic Blood Jdcpqqdd5561-00-37 11:08:00.99767 mm[Hg]Diastolic Blood Txqhqvwt9983-54-02 11:38:00.22120 mm[Hg]Diastolic Blood Kewbkkvi0866-72-68 15:43:00.31496 mm[Hg]Diastolic Blood Tguvoorh3078-23-58 11:27:00.04902 mm[Hg] Diastolic Blood Ouzujasc9751-62-37 13:12:00.91855 mm[Hg]Diastolic Blood Pressure 2025-06-07 15:42:00.91848 mm[Hg]Diastolic Blood Arrfvfrn2843-94-56 10:57:00.000 65 mm[Hg] Plan of Treatment Planned Activity Planned Date Details Comments Future Scheduled Test OCCUPATIONAL THERAPIST TO EVALUATE PATIENT FOR OT SERVICES AND DEVELOP PLAN OF CARE PLAN OF CARE MERCEDES SIGNED BY THE PHYSICIAN. [code = OCCUPATIONAL THERAPIST TO EVALUATE PATIENT FOR OT SERVICES AND DEVELOP PLAN OF CARE PLAN OF CARE TO BE SIGNED BY THE PHYSICIAN.]Future Scheduled TestOCCUPATIONAL THERAPIST TO PROVIDE INSTRUCTION/REINFORCEMENT ASSOCIATED WITH KNOWLEDGE DEFICITS INCLUDING L TKA. [code = OCCUPATIONAL THERAPIST TO PROVIDE INSTRUCTION/REINFORCEMENT ASSOCIATED WITH KNOWLEDGE DEFICITS INCLUDING L TKA.]Future Scheduled TestOCCUPATIONAL THERAPIST OR SKILLED NURSE FOR OASIS DATA COLLECTION/COMPREHENSIVE ASSESSMENT TO DETERMINE SKILLED NEED. THIS MAY INCLUDE RESUMPTION OF CARE ASSESSMENT (VINCENT) TO DETERMINE SKILLED NEED FOLLOWING INPATIENT DISCHARGE SHOULD PATIENT TRANSFER AND ADMIT TO AN INPATIENT FACILITY DURING CURRENT 60-DAY CERTIFICATION PERIOD. ADDITIONAL VISITS MAY BE REQUIRED FOR RECERT, FOLLOW UP, SIGNIFICANT CHANGE IN CONDITION (SCIC) AND DISCHARGE. [code = OCCUPATIONAL THERAPIST OR SKILLED NURSE FOR OASIS DATA COLLECTION/COMPREHENSIVE ASSESSMENT TO DETERMINE SKILLED NEED. THIS MAY INCLUDE RESUMPTION OF CARE ASSESSMENT (VINCENT) TO DETERMINE SKILLED NEED FOLLOWING INPATIENT DISCHARGE SHOULD PATIENT TRANSFERAND ADMIT TO AN INPATIENT FACILITY DURING CURRENT 60-DAY CERTIFICATION PERIOD. ADDITIONAL VISITS MAY BE REQUIRED FOR RECERT, FOLLOW UP, SIGNIFICANT CHANGE IN CONDITION (SCIC) AND DISCHARGE.]Future Scheduled TestOCCUPATIONAL THERAPY TO ESTABLISH/UPGRADE HOME EXERCISE PROGRAM AND PROVIDE THERAPEUTIC EXERCISES AND/OR SOFT TISSUE/JOINT MOBILIZATION DESIGNED TO RESTORE FUNCTIONAL STRENGTH AND ROM. [code = OCCUPAT IONAL THERAPY TO ESTABLISH/UPGRADE HOME EXERCISE PROGRAM AND PROVIDE THERAPEUTIC EXERCISES AND/OR SOFT TISSUE/JOINT MOBILIZATION DESIGNED TO RESTORE FUNCTIONAL STRENGTH AND ROM.]Future Scheduled TestOCCUPATIONAL THERAPY TO INSTRUCT IN SAFE TRANSFERS USING APPROPRIATE BODY MECHANICS AND EQUIPMENT. [code = OCCUPATIONAL THERAPY TO INSTRUCT IN SAFE TRANSFERS USING APPROPRIATE BODY MECHANICS AND EQUIP MENT.]Future Scheduled TestOCCUPATIONAL THERAPIST TO INSTRUCT REGARDING OXYGEN MANAGEMENT INCLUDING ADMINISTRATION, CARE OF EQUIPMENT AND SAFETY. [code = OCCUPATIONAL THERAPIST TO INSTRUCT REGARDING OXYGEN MANAGEMENT INCLUDING ADMINISTRATION, CARE OF EQUIPMENT AND SAFETY.]Future Scheduled TestOCCUPATIONAL THERAPY TO EVALUATE FUNCTIONAL MOBILITY/AMBULATION AND PROVIDE TRAINING USING APPROPRIATE ASSISTIVE DEVICES TO ENSURE PATIENT SAFETY [code = OCCUPATIONAL THERAPY TO EVALUATE FUNCTIONAL MOBILITY/AMBULATION AND PROVIDE TRAINING USING APPROPRIATE ASSISTIVE DEVICES TO ENSURE PATIENT SAFETY]Future Scheduled Test OCCUPATIONAL THERAPIST TO PROVIDE INSTRUCTION REGARDING SAFE USE OF ADAPTIVE EQUIPMENT. [code = OCCUPATIONAL THERAPIST TO PROVIDE INSTRUCTION REGARDING SAFE USE OF ADAPTIVE EQUIPMENT.]Future Scheduled TestOCCUPATIONAL THERAPIST TO EDUCATE PATIENT / CAREGIVER ON SAFETY RECOMMENDATIONS FOR HOME ENVIRONMENT, TO REDUCE FALL RISK. [code = OCCUPATIONAL THERAPIST TO EDUCATE PATIENT / CAREGIVER ON SAFETY RECOMMENDATIONS FOR HOME ENVIRONMENT, TO REDUCE FALL RISK.]Future Scheduled TestOCCUPATIONAL THERAPIST TO PROVIDE PATIENT / CAREGIVER WITH ADL TRAINING TO INCREASE INDEPENDENCE. [code = OCCUPATIONAL THERAPIST TO PROVIDE PATIENT / CAREGIVER WITH ADL TRAINING TO INCREASE INDEPENDENCE.]Future Scheduled TestOCCUPATIONAL THERAPIST TO PROVIDE PATIENT / CAREGIVER WITH IADL TRAINING TO INCREASE INDEPENDENCE. [code = OCCUPATIONAL THERAPIST TO PROVIDE PATIENT / CAREGIVER WITH IADL TRAINING TO INCREASE INDEPENDENCE.]Future Scheduled Test OCCUPATIONAL THERAPY TO PROVIDE BALANCE TRAINING TO REDUCE FALL RISK DURING FUNCTIONAL ACTIVITIES. [code = OCCUPATIONAL THERAPY TO PROVIDE BALANCE TRAINING TO REDUCE FALL RISK DURING FUNCTIONAL ACTIVITIES.]Future Scheduled Test OCCUPATIONAL THERAPIST TO REVIEW MEDICATION PROFILE AND RECONCILE MEDICATIONS NEEDED. OCCUPATIONAL THERAPIST MAY INSTRUCT AND REINFORCE MEDICATION TEACHING RELATED TO USE OF MEDICATIONS TO TREAT DISEASE PROCESSES. [code = OCCUPATIONAL THERAPIST TO REVIEW MEDICATION PROFILE AND RECONCILE MEDICATIONS NEEDED. OCCUPATIONAL THERAPIST MAY INSTRUCT AND REINFORCE MEDICATION TEACHING RELATED TO USE OF MEDICATIONS TO TREAT DISEASE PROCESSES.]Future Scheduled Test OCCUPATIONAL THERAPY TO PROVIDE MONITORING FOR THE PRESENCE OF SKIN LESIONS ON THE LOWER EXTREMITIES AND TEACHING/REINFORCEMENT REGARDING PROPER DIABETIC FOOT CARE. [code = OCCUPATIONAL THERAPY TO PROVIDE MONITORING FOR THE PRESENCE OF SKIN LESIONS ON THE LOWER EXTREMITIES AND TEACHING/REINFORCEMENT REGARDING PROPER DIABETIC FOOT CARE.]Future Scheduled TestOCCUPATIONAL THERAPIST TO PROVIDE AND INSTRUCT REGARDING FALL PREVENTION INTERVENTIONS. [code = OCCU PATIONAL THERAPIST TO PROVIDE AND INSTRUCT REGARDING FALL PREVENTION INTERVENTIONS.]Future Scheduled TestOCCUPATIONAL THERAPIST TO MONITOR PLAN FOR CURRENT TREATMENT OF DEPRESSION SUCH EFFECTS OF MEDICATION AND/OR NEED FOR REFERRAL FOR OTHER TREATMENT [code = OCCUPATIONAL THERAPIST TO MONITOR PLAN FOR CURRENT TREATMENT OF DEPRESSION SUCH EFFECTS OF MEDICATION AND/OR NEED FOR REFERRAL FOR OTHER TREATMENT]Future Scheduled TestOCCUPATIONAL THERAPIST TO PROVIDE/INSTRUCT REGARDING INTERVENTION(S) TO MONITOR AND MITIGATE PAIN. [code = OCCUPATIONAL THERAPIST TO PROVIDE/INSTRUCT REGARDING INTERVENTION(S) TO MONITOR AND MITIGATEPAIN.]Future Scheduled TestPATIENT IS AT RISK FOR HOSPITALIZATION OR EMERGENCY DEPARTMENT USE DUE TO FALLS. TEACH PATIENT/CAREGIVER TO ?CALL US FIRST? . INFORM ON WHO AND WHEN TO CALL FOR SYMPTOMS BASED ON ZONE TOOLS. INSTRUCT ON MITIGATION OF IDENTIFIED HOSPITAL OR EMERGENCY DEPARTMENT RISK FACTORS. [code = PATIENTIS AT RISK FOR HOSPITALIZATION OR EMERGENCY DEPARTMENT USE DUE TO FALLS. TEACH PATIENT/CAREGIVER TO?CALL US FIRST? . INFORM ON WHO AND WHEN TO CALL FOR SYMPTOMS BASED ON ZONE TOOLS. INSTRUCT ON MITIGATION OF IDENTIFIED HOSPITAL OR EMERGENCY DEPARTMENT RISK FACTORS.]Future Scheduled TestPHYSICAL THERAPIST TO EVALUATE/ASSESS AND DEVELOP PHYSICAL THERAPY PLAN OF CARE TO BE SIGNED BY THEPHYSICIAN. [code = PHYSICAL THERAPIST TO EVALUATE/ASSESS AND DEVELOP PHYSICAL THERAPY PLAN OF CARE TO BE SIGNED BY THE PHYSICIAN.]Future Scheduled TestALL CONSULTING/COVERING PHYSICIANS MAY SIGN AND ISSUE ORDERS. [code = ALL CONSULTING/COVERING PHYSICIANS MAY SIGN AND ISSUE ORDERS.]Future Scheduled TestDISCHARGE HOME HEALTH SERVICES WHEN GOALS ARE MET OR SKILLED CARE NO LONGER REQUIRED. [code = DISCHARGE HOME HEALTH SERVICES WHEN GOALS ARE MET OR SKILLED CARE NO LONGER REQUIRED.]Future Scheduled TestOCCUPATIONAL THERAPIST TO PROVIDE INSTRUCTIONS REGARDING MEASURES TO CONTROL CONSTIPATION. [code = O CCUPATIONAL THERAPIST TO PROVIDE INSTRUCTIONS REGARDING MEASURES TO CONTROL CONSTIPATION.]Future Scheduled TestPHYSICAL THERAPIST TO PROVIDE SKILLED TEACHING/REINFORCEMENT OF MANAGEMENT OF HYPERTENSION. INSTRUCT ON COPD AND RELATED CONDITIONS, MANAGEMENT TECHNIQUES TO INCLUDE MEASURES TO PREVENT EXACERBATION,SIGNS AND SYMPTOMS, AND TREATMENT GOALS. PHYSICAL THERAPIST TO PROVIDE INSTRUCTIONS REGARDING MEASURES TO CONTROL CONSTIPATION. PHYSICAL THERAPIST TO EVALUATE/ASSESS AND DEVELOP PHYSICAL THERAPY PLANOF CARE TO BE SIGNED BY THE PHYSICIAN. PHYSICAL THERAPIST TO OBSERVE AND ASSESS RESPIRATORY SYSTEM TO IDENTIFY CHANGES AND INTERVENE TO MINIMIZE COMPLICATIONS. PHYSICAL THERAPIST TO PROVIDE TEACHING RELATED TO ALTERED RESPIRATORY STATUS INCLUDING PATHOPHYSIOLOGY, AND PERMITTED ACTIVITIES RELATED TOCOPD MAY PERFORM O2 SATURATION LEVEL PRN FOR SIGNS AND SYMPTOMS OF POSSIBLE RESPIRATORY COMPLICATION S. PHYSICAL THERAPY TO ESTABLISH/UPGRADE HOME EXERCISE PROGRAM AND PROVIDE THERAPEUTIC EXERCISES AND SOFT TISSUE/JOINT MOBILIZATION DESIGNED TO RESTORE FUNCTIONAL STRENGTH AND ROM. PHYSICAL THERAPY TO PROVIDE TECHNIQUES DESIGNED TO IMPROVE BED MOBILITY. PHYSICAL THERAPY TO INSTRUCT IN SAFE TRANSFERS WITH APPROPRIATE BODY MECHANICS AND EQUIPMENT. PHYSICAL THERAPY TO EVALUATE GAIT AND PROVIDE GAIT TRAINING USING APPROPRIATE ASSISTIVE DEVICE TO ENSURE PATIENT SAFETY. PHYSICAL THERAPIST TO PROVIDE EDUCATION TO PATIENT/CAREGIVER RELATED TO SAFETY IN THE HOME ENVIRONMENT. PHYSICAL THERAPIST TO PROVIDE INSTRUCTION REGARDING PAIN CONTROL INCLUDING PHARMACOLOGIC AND NON-PHARMACOLOGIC METHODS. PHYSICAL THERAPIST TO PROVIDE AND INSTRUCT REGARDING FALL PREVENTION INTERVENTIONS. PHYSICAL THERAPIST TO MONITOR PLAN FOR CURRENT TREATMENT OF DEPRESSION SUCH EFFECTS OF MEDICATION AND/OR NEED FOR REFERRAL FOR OTHER TREATMENT. PHYSICAL THERAPIST TO PROVIDE/INSTRUCT REGARDING INTERVENTION(S) TO MONITORAND MITIGATE PAIN. PHYSICAL THERAPIST TO INSTRUCT REGARDING OXYGEN MANAGEMENT INCLUDING ADMINISTRATION, CARE OF EQUIPMENT AND SAFETY. DISCHARGE HOME HEALTH SERVICES WHEN GOALS ARE MET OR SKILLED CARENO LONGER REQUIRED. PATIENT IS AT RISK FOR HOSPITALIZATION OR EMERGENCY DEPARTMENT USE DUE TO COPD O R INFECTION. TEACH PATIENT/CAREGIVER TO ?CALL US FIRST? . INFORM ON WHO AND WHEN TO CALL FOR SYMPTOMS BASED ON ZONE TOOLS. INSTRUCT ON MITIGATION OF IDENTIFIED HOSPITAL OR EMERGENCY DEPARTMENT RISK FACTORS. PHYSICAL THERAPIST TO PROVIDE INSTRUCTION OF ORTHOPEDIC POST SURGICAL PRECAUTIONS/LIMITATIONS. PHYSICAL THERAPIST TO REVIEW MEDICATION PROFILE AND RECONCILE MEDICATIONS NEEDED. PHYSICAL THERAPIST MAY INSTRUCT AND REINFORCE MEDICATION TEACHING RELATED TO USE OF MEDICATIONS TO TREAT DISEASE PROCESSES. PHYSICAL THERAPIST TO PROVIDE MONITORING FOR THE PRESENCE OF SKIN LESIONS ON THE LOWER EXTREMITIES AND TEACHING/REINFORCEMENT REGARDING PROPER DIABETIC FOOT CARE. [code = PHYSICAL THERAPIST TO PROVIDE SKILLED TEACHING/REINFORCEMENT OF MANAGEMENT OF HYPERTENSION. INSTRUCT ON COPDAND RELATED CONDITIONS, MANAGEMENT TECHNIQUES TO INCLUDE MEASURES TO PREVENT EXACERBATION, SIGNS AND SYMPTOMS, AND TREATMENT GOALS. PHYSICAL THERAPIST TO PROVIDE INSTRUCTIONS REGARDING MEASURES TO CONTROL CONSTIPATION. PHYSICAL THERAPIST TO EVALUATE/ASSESS AND DEVELOP PHYSICAL THERAPY PLAN OF CARE TO BE SIGNED BY THE PHYSICIAN. PHYSICAL THERAPIST TO OBSERVE AND ASSESS RESPIRATORY SYSTEM TO IDENTIFY CHANGES AND INTERVENE TO MINIMIZE COMPLICATIONS. PHYSICAL THERAPIST TO PROVIDE TEACHING RELATED TO ALTERED RESPIRATORY STATUS INCLUDING PATHOPHYSIOLOGY, AND PERMITTED ACTIVITIES RELATED TO COPD MAYPERFORM O2 SATURATION LEVEL PRN FOR SIGNS AND SYMPTOMS OF POSSIBLE RESPIRATORY COMPLICATIONS. PHYSICAL THERAPY TO ESTABLISH/UPGRADE HOME EXERCISE PROGRAM AND PROVIDE THERAPEUTIC EXERCISES AND SOFT TISSUE/JOINT MOBILIZATION DESIGNED TO RESTORE FUNCTIONAL STRENGTH AND ROM. PHYSICAL THERAPY TO PROVIDE TECHNIQUES DESIGNED TO IMPROVE BED MOBILITY. PHYSICAL THERAPY TO INSTRUCT IN SAFE TRANSFERS WITH APPROPRIATE BODY MECHANICS AND EQUIPMENT. PHYSICAL THERAPY TO EVALUATE GAIT AND PROVIDE GAIT TRAINING USING APPROPRIATE ASSISTIVE DEVICE TO ENSURE PATIENT SAFETY. PHYSICAL THERAPIST TO PROVIDE EDUCATIONTO PATIENT/CAREGIVER RELATED TO SAFETY IN THE HOME ENVIRONMENT. PHYSICAL THERAPIST TO PROVIDE INSTRUCTION REGARDING PAIN CONTROL INCLUDING PHARMACOLOGIC AND NON- PHARMACOLOGIC METHODS. PHYSICAL THERAPIST TO PROVIDE AND INSTRUCT REGARDING FALL PREVENTION INTERVENTIONS. PHYSICAL THERAPIST TO MONITOR PLAN FOR CURRENT TREATMENT OF DEPRESSION SUCH EFFECTS OF MEDICATION AND/OR NEED FOR REFERRAL FOR OTHER TREATMENT. PHYSICAL THERAPIST TO PROVIDE/INSTRUCT REGARDING INTERVENTION(S) TO MONITOR AND MITIGATE PAIN. PHYSICAL THERAPIST TO INSTRUCT REGARDING OXYGEN MANAGEMENT INCLUDING ADMINISTRATION, CAREOF EQUIPMENT AND SAFETY. DISCHARGE HOME HEALTH SERVICES WHEN GOALS ARE MET OR SKILLED CARE NO LONGER REQUIRED. PATIENT IS AT RISK FOR HOSPITALIZATION OR EMERGENCY DEPARTMENT USE DUE TO COPD OR INFECTION. TEACH PATIENT/CAREGIVER TO ?CALL US FIRST? . INFORM ON WHO AND WHEN TO CALL FOR SYMPTOMS BASED ON ZONE TOOLS. INSTRUCT ON MITIGATION OF IDENTIFIED HOSPITAL OR EMERGENCY DEPARTMENT RISK FA CTORS. PHYSICAL THERAPIST TO PROVIDE INSTRUCTION OF ORTHOPEDIC POST SURGICAL PRECAUTIONS/LIMITATIONS. PHYSICAL THERAPIST TO REVIEW MEDICATION PROFILE AND RECONCILE MEDICATIONS NEEDED. PHYSICAL THERAPIST MAY INSTRUCT AND REINFORCE MEDICATION TEACHING RELATED TO USE OF MEDICATIONS TO TREAT DISEASEPROCESSES. PHYSICAL THERAPIST TO PROVIDE MONITORING FOR THE PRESENCE OF SKIN LESIONS ON THE LOWER EXTREMITIES AND TEACHING/REINFORCEMENT REGARDING PROPER DIABETIC FOOT CARE.]GoalPatient Goal - TO GET BACK TO NORMAL, HAV LESS KNEE PAINGoalProvider Goal - OCCUPATIONAL THERAPY EVALUATION WILL BE COMPLETED. PLAN OF CARE WILL BE ORDERED BY PHYSICIAN AND PROVIDED BY OCCUPATIONAL THERAPIST. ALL GOALS TO BE MET BY END OF CURRENTLY APPROVED PLAN OF CARE.GoalProvider Goal - PATIENT/CAREGIVER WILL VERBALIZE UNDERSTANDING OF SKILLED INSTRUCTIONS BY 07/31/25.GoalProvider Goal -GoalProvider Goal - PATIENT WILL DEMONSTRATE IMPROVED FUNCTION IN RESPONSE TO BUE EXERCISE(S) AND/OR MANUAL THERAPY TECHNIQUE(S), EVIDENCED BY INCREASED INDEPENDENCE IN ACTIVITIES OF DAILY LIVING BY 07/10/25.GoalProvider Goal - PATIENT/CAREGIVER WILL DEMONSTRATE SAFE TRANSFERS USING APPROPRIATE BODY MECHANICS AND APPROPRIATE EQUIPMENT (ROLLING WALKER, BAHROOM DME) BY 07/31/25. GoalProvider Goal - PATIENT/CAREGIVER WILL DEMONSTRATE ABILITY TO SAFELY MANAGE OXYGEN THERAPY IN THE HOME SETTING BY 07/10/25.GoalProvider Goal - PATIENT WILL DEMONSTRATE USE OF SAFETY PRECAUTIONS AND IMPROVED FUNCTIONAL MOBILITY/ AMBULATION WITH USE OF ASSISTIVE DEVICE NEEDED TO MINIMIZE RISK OF INJURY BY 07/31/25.GoalProvider Goal - PATIENT WILL DEMONSTRATE UNDERSTANDING OF INSTRUCTIONS RELATED TO SAFE USE OF ADAPTIVE EQUIPMENT BY 07/31/25.GoalProvider Goal - PATIENT / CAREGIVER TO DEMONSTRATE INCREASED SAFETY IN HOME ENVIRONMENT EVIDENCED BY DECREASED FALL RISK BY 07/31/25.GoalProvider Goal - PATIENT WILL DEMONSTRATE INCREASED INDEPENDENCE IN ACTIVITIES OF DAILY LIVING BY 07/31/25. GoalProvider Goal - PATIENT WILL DEMONSTRATE INCREASED INDEPENDENCE IN IADL'S BY 07/31/25.GoalProvider Goal - PATIENT / CAREGIVER TO DEMONSTRATE DECREASED FALL RISK DURING FUNCTIONAL ACTIVITIESBY 07/31/25.GoalProvider Goal - PATIENT WILL DEMONSTRATE COMPLIANCE WITH MEDICATIONS PRESCRIBED. PATIENT/CAREGIVER WILL VERBALIZE/DEMONSTRATE UNDERSTANDING OF MEDICATION SCHEDULE, PURPOSE, SIDE EFFECTS, AND ANY SPECIAL PRECAUTIONS RELATED TO MEDICATION REGIMEN BY 07/10/25. GoalProvider Goal - CHANGES IN PATIENT CO-MORBID STATUS WILL BE PROMPTLY IDENTIFIED AND REPORTED TO THEPHYSICIAN. PATIENT/CAREGIVER VERBALIZE/DEMONSTRATE ABILITY TO PROPERLY MANAGE DIABETIC FOOT CARE BY07/10/25.GoalProvider Goal - CHANGES IN PATIENT CO-MORBID STATUS WILL BE PROMPTLY IDENTIFIED AND REPORTED TO THEPHYSICIAN. PATIENT/CAREGIVER VERBALIZE/DEMONSTRATE MEASURES TO PREVENT FALLS BY 07/10/25.GoalProvider Goal - CHANGES IN PATIENT CO-MORBID STATUS WILL BE PROMPTLY IDENTIFIED AND REPORTED TO THEPHYSICIAN. PATIENT/CAREGIVER VERBALIZE/DEMONSTRATE ABILITY TO PROPERLY MANAGE DEPRESSION BY 07/10/25.Goal Provider Goal - CHANGES IN PATIENT CO-MORBID STATUS WILL BE PROMPTLY IDENTIFIED AND REPORTED TO THEPHYSICIAN. PATIENT/CAREGIVER VERBALIZE/DEMONSTRATE ABILITY TO PROPERLY MANAGE PAIN BY 07/10/25.GoalProvider Goal - PATIENT/CAREGIVER WILL VERBALIZE/DEMONSTRATE UNDERSTANDING OF SYMPTOM MANAGEMENT, RESOURCE UTILIZATION, AND MEDICATION MANAGEMENT TO REDUCE UNPLANNED HOSPITAL OR EMERGENCY DEPARTMENT V ISITS BY 07/10/25.GoalProvider Goal - A PHYSICAL THERAPY PLAN OF CARE WILL BE ORDERED BY PHYSICIAN AND PROVIDED BY PHYSICAL THERAPY. ALL GOALS TO BE MET BY END OF CURRENTLY APPROVED PLAN OF CARE.GoalProvider Goal - ADDITIONAL ORDERS WILL BE RECEIVED FROM ALTERNATE PHYSICIAN IN A TIMELY MANNER.GoalProvider Goal - GoalProvider Goal - PATIENT/CAREGIVER WILL VERBALIZE BOWEL PROGRAM STEPS TO PREVENT CONSTIPATION COMPLICATIONS BY 07/10/25. PATIENT WILL HAVE A REGULAR BM EVERY 2-3 DAYS.GoalProvider Goal - PATIENT/CAREGIVER VERBALIZE/DEMONSTRATE ABILITY TO MANAGE HYPERTENSION EVIDENCEDBY BLOOD PRESSURE READINGS CONSISTENTLY WITHIN PHYSICIAN APPROVED PARAMETERS BY 06/12/25. PATIENT/CAREGIVER WILL VERBALIZE/DEMONSTRATE INDEPENDENCE WITH SELF-CARE MANAGEMENT STRATEGIES TO PREVENT AN EXACERBATION OF COPD BY 06/12/25. PATIENT/CAREGIVER WILL VERBALIZE BOWEL PROGRAM STEPS TO PREVENT CONSTIPATION COMPLICATIONS BY 06/11/25. PATIENT WILL HAVE A REGULAR BM EVERY 2-3 DAYS. A PHYSICAL THERAPY PLAN OF CARE WILL BE ORDERED BY PHYSICIAN AND PROVIDED BY PHYSICAL THERAPY. ALL GOALS TO BE MET BY END OF CURRENTLY APPROVED PLAN OF CARE. RESPIRATORY EXACERBATIONS WILL BE IDENTIFIED PROMPTLY ANDINTERVENTIONS INITIATED TO MINIMIZE ASSOCIATED RISKS. PATIENT/CAREGIVER WILL VERBALIZE/DEMONSTRATE ABILITY TO MANAGE RESPIRATORY DISEASE EVIDENCED BY IMPROVED ENDURANCE, DECREASED SHORTNESS OF BREATH, NORMAL O2 SATURATION LEVELS AND NO UNPLANNED HOSPITALIZATIONS BY 06/12/25. ABNORMAL O2 SATURATIONS WILL BE REPORTED TO PHYSICIAN. PATIENT WILL DEMONSTRATE IMPROVED FUNCTION IN RESPONSE TO SPECIFIC EXERCISE(S) AND/OR MANUAL THERAPY TECHNIQUE(S), EVIDENCED BY INCREASED INDEPENDENCE IN ACTIVITIES OF DAILY LIVING BY 06/12/25. PATIENT WILL DEMONSTRATE IMPROVED BED MOBILITY EVIDENCED BY ABILITY TO CHANGE POSITION INDEPENDENTLY BY 06/11/25. PATIENT/CAREGIVER WILL DEMONSTRATE SAFE TRANSFERS USING APPROPRIATE BODY MECHANICS AND APPROPRIATE EQUIPMENT BY 06/12/25. PATIENT WILL DEMONSTRATE SAFEGAIT TECHNIQUE WITH ROLLING WALKER, NEEDED TO IMPROVE FUNCTIONAL MOBILITY AND MINIMIZE RISK OF INJURY BY 06/12/25. PATIENT/CAREGIVER WILL DEMONSTRATE ADEQUATE KNOWLEDGE OF PROVIDING A SAFE HOME SETTING WITHOUT ENVIRONMENTAL HAZARDS BY 06/12/25. PATIENT / CAREGIVER WILL VERBALIZE EFFECTIVE PAIN CONTROL AND UNDERSTAND BOTH PHARMACOLOGIC AND NON- PHARMACOLOGIC PAIN CONTROL METHODS BY 06/12/25. CHANGES IN PATIENT CO-MORBID STATUS WILL BE PROMPTLY IDENTIFIED AND REPORTED TO THE PHYSICIAN. PATIENT/C AREGIVER VERBALIZE/DEMONSTRATE MEASURES TO PREVENT FALLS BY 06/12/25. CHANGES IN PATIENT CO-MORBID STATUS WILL BE PROMPTLY IDENTIFIED AND REPORTED TO THE PHYSICIAN. PATIENT/CAREGIVER VERBALIZE/DEMONSTRATE ABILITY TO PROPERLY MANAGE DEPRESSION BY 06/12/25. CHANGES IN PATIENT CO-MORBID STATUS WILL BEPROMPTLY IDENTIFIED AND REPORTED TO THE PHYSICIAN. PATIENT/CAREGIVER VERBALIZE/DEMONSTRATE ABILITY TO PROPERLY MANAGE PAIN BY 06/12/25. PATIENT/CAREGIVER WILL DEMONSTRATE ABILITY TO SAFELY MANAGE OXYGEN THERAPY IN THE HOME SETTING BY 06/12/25. PATIENT/CAREGIVER WILL VERBALIZE/DEMONSTRATE UNDERSTANDING OF SYMPTOM MANAGEMENT, RESOURCE UTILIZATION, AND MEDICATION MANAGEMENT TO REDUCE UNPLANNED HOSPITAL OR EMERGENCY DEPARTMENT VISITS BY 08/05/25. PATIENT/CAREGIVER WILL VERBALIZE/DEMONSTRATE UNDERSTANDING OF 3 OUT OF 3 OF THE RISKS ASSOCIATED WITH RECENT SURGICAL PROCEDURE. PATIENT WILL DEMONSTRATE COMPLIANCE WITH MEDICATIONS PRESCRIBED. PATIENT/CAREGIVER WILL VERBALIZE/DEMONSTRATE UNDERSTANDING OF MEDICATION SCHEDULE, PURPOSE, SIDE EFFECTS, AND ANY SPECIAL PRECAUTIONS RELATED TO MEDICATIONREGIMEN BY 06/12/25 CHANGES IN PATIENT CO-MORBID STATUS WILL BE PROMPTLY IDENTIFIED AND REPORTED TO THE PHYSICIAN. PATIENT/CAREGIVER VERBALIZE/DEMONSTRATE ABILITY TO PROPERLY MANAGE DIABETIC FOOT CARE BY 07/06/2025 Progress Notes Progress Notes <paragraph>[Visit Date: 2024 by GILLIAN BUCIO PTA]:</paragraph><paragraph>ROUTINE VISIT COMPLETED WITH GOOD TOLERANCE TO TX SESSION PATIENT REPORTS CO PAIN </paragraph><paragraph></paragraph><paragraph>PATIENT REPORTS NO NEW OR WORSENING SX STATES THAT SHE IS COMPLIANT WITH HEP NO CONCERNS AT THIS TIME DOES USE ASSISTED DEVICE WITH GAITPATIENT AMBULATING 90FTFT USE OF SBA/CGA AND ASSISTED DEVICE, VC TO IMPROVE SEQUENCING OF ASSISTED DEVICE AND PROXIMITY TO IMPROVE STABILITY AND SAFETY, VC FOR STEP HEGHT AND LENGTH TO ENSURE GOOD LE CLEARANCE AND DECREASE TRIPPING WITH GOOD FOLLOW C/O FATIGUE IN LE AND MIN SOB REQUIRING RESST FOLLOWING EACH BOUT. VC FOR HEEL STRIKE AND TKE WELL KNEE FLEXION IN SWING OHASE GOOD FOLLOW THROUGH.PT INSTRUCTED IN SEATED THEREX TO IMPROVE LE STRENGTH AND ENDURANCE COMPLETING EXERCISES LAQ, MARCHES, HIP ABD, HIP ADD, HR AND TR VC FOR PROPER TECHNIQUE TO LIMIT COMPENSATORY MECHANICS TO ENSURE MAX STRENGTH GAINS. 20X 1 SET COMPELTING QUAD, GKUTE SETS, HEEL SLIDES,, SLR, . MANUAL THERAPY FOR KNEE FLEXION AND EXT.</paragraph><paragraph></paragraph><paragraph>NO CHANGES IN MEDICATION, INSURANCE OR FALLS TO REPORTS, CONTINUE TO PROGRESS BLE THEREX, GAIT, TRANSFERS, BALANCE AND ACTIVITY TOLERANCE</paragraph> <paragraph>[Visit Date: 2024 by KIRT MUNIZ]:</paragraph><paragraph>ROUTINE VISIT COMPLETED THIS DATE WITH [facility] TOLERNCE NOTED 8/10 L KNEE PAIN REPORTED. PER PATIENT REPORT, NO CHANGE IN MEDICATIONS.NO CHANGE IN INSURANCE AND NO FALLS</paragraph><paragraph></paragraph><paragraph>8/10 L KNEE PAIN - PATIENT IS TAKING 1 TYLENOL EVERY 6 HRS DIRECTED. SHE IS OUT OF HER PAIN MEDS. THIS THERAPIST CALLED DR CHIN'S OFFICE TALKED TO PHIL WHO REPORTED PT HAS CALLED MULTIPLE TIMES & CORRESPONDED THRU MY CHART REGARDING GETTING PAIN MEDS. PER PHIL - TAKE TYLENOL DIRECTED, USE ICE, ELEVATE. PT COMPLIANT WITH ALL. ELDA HAS F/U TOMORROW BUT DR GALLARDO SAID SHE HAD ONE ON 06/09 THAT SHE MISSED. PATIENT HAS NO RECORD OF THIS APPT INCLUDING ON HER MY CHART (WHICH SHE SHOWED ME) AND NOT ON HER AVS. SHE IS GOING TO DR TOMORROW AT 11:00.</paragraph><paragraph></paragraph><paragraph>IADL TASKS - PER PATIENT, I HAVEN'T ATTEMPTED ANYTHING LIKE THAT YET BECAUSE MY KNEE HURTS SO BAD. MY BOYFRIEND HAS BEEN TAKING CARE OF IT. </paragraph><paragraph></paragraph><paragraph>BUE HEP 7 PLANES X 15 REPS X 1 SET WITH MOD VC & DEMONSTRATION PROVIDED WITH PATIENT DEMONSTRATING GOOD RETURN. FUNCTIONAL MOBILITY- SBA WITH FWW</paragraph><paragraph></paragraph><paragraph>TOILETING TASK - COMPLETED WITH DISTANT SUPERVISION X 2</paragraph><paragraph></paragraph><paragraph>TRANSFERS - SBA WITH BUE ASSIST</paragraph><paragraph></paragraph><paragraph>BATHING - PATIENT REPORTED SHE HAS BEEN COMPLETING - DID NOT REQUEST PT TO [facility] D/T 03/28 PAIN REPORTED L KNEE</paragraph><paragraph></paragraph><paragraph>NEXT VISIT - BUE HEP, ADL TRANSFERS, IADL TASKS.</paragraph> <paragraph>[Visit Date: 2024 by GILLIAN BUCIO PTA]:</paragraph><paragraph>ROUTINE VISIT COMPLETED WITH FAIR TOLERANCE TO TX SESSION LIMITED BY PAIN </paragraph><paragraph></paragraph><paragraph>PATIENT REPORTS NO NEW OR WORSENING SX STATES THAT SHE IS HAVING MORE PAIN DT NO PAIN MEDS IS TAKING TYLENOL AND ICING ROUTINE. HAS NOT BEEN DOING HEPPATIENT AMBULATING 80FT USE OF SBA/CGA AND ASSISTED DEVICE, VC TO IMPROVE SEQUENCING OF ASSISTED DEVICE AND PROXIMITY TO IMPROVE STABILITY AND SAFETY, VC FOR STEP HEGHT AND LENGTH TO ENSURE GOOD LE CLEARANCE AND DECREASE TRIPPING WITH GOOD FOLLOW C/O FATIGUE IN LE AND MIN SOB REQUIRING RESST FOLLOWING EACH BOUT. VC FOR HEEL STRIKE AND QUAD ACTIVATION WITH TKE. PT INSTRUCTED IN SEATED THEREX TO IMPROVE LE STRENGTH AND ENDURANCE COMPLETING EXERCISES LAQ, MARCHES, HIP ABD, HIP ADD, HR AND TR VC FOR PROPER TECHNIQUE TO LIMIT COMPENSATORY MECHANICS TO ENSURE MAX STRENGTH GAINS. X20 1 SET LIGHT PROM DT PAIN AND TRIALED LIGHT DISTRACTION WITH MINIMAL RELIEF </paragraph><paragraph></paragraph><paragraph>NO CHANGES IN MEDICATION, INSURANCE OR FALLS TO REPORTS, CONTINUE TO PROGRESS BLE THEREX, GAIT, TRANSFERS, BALANCE AND ACTIVITY TOLERANCE</paragraph> Encounters Start Date/Time End Date/Time Encounter Type Admission Type Attending [facility] Care Department Encounter ID Discharge Date Discharge Status Discharge Condition Discharge Reason Percent Goals Met 2025-06-07 00:00:00 2025-08-05 00:00:00 Outpatient NEW ADM MARQUISION ERIC VALENCIA [id number]
== END 2025-06-15 20:31 | disposition home or self-care (01) ==
LOC: ER 19:48
PROVIDERS: Emergency Provider Student in an Organized Health Care Education/Training Program; PCP Family Medicine
DX: G89.18 Other acute postprocedural pain (principal); M25.562 Pain in left knee; Z96.652 Presence of left artificial knee joint
CPT/HCPCS: 99283

== ENCOUNTER 2025-07-24 12:29 | Emergency (ER) | payer OTHER, SELFPAY ==
--- OUTSIDE RECORDS SUMMARY | 2021-09-08 11:03 | XMS_ITS | Continuity of Care Document ---
Author Organization [facility] Address [address] [place] [address] Phone Care Team Providers Care Extrusion Process Operator Name Role Phone Allen Cruz Unavailable Unavailable Allergies, Adverse Reactions, Alerts Substance Reaction Status Criticality carbamazepine Hallucinations Active No Informati on VERAPAMIL HCL Active No Information aspirin Active No Information ibuprofen Active No Information Penicillins Active No Information doxycycline Active No Information divalproex sodium Active No Informa tion codeine Active No Information trimethoprim Active No Information sulfamethoxazole Active No Informat ion Medications Medication Instructions Dosage Effective Dates (start - stop) Status Comments Abilify 30 mg tablet take 1 tablet by oral route every day 30 MG - Active alprazolam 0.5 mg tablet take 1 tablet by oral route 3 times every day as needed 0.5 MG - Active benztropine 0.5 mg tablet take 1 tablet by oral route 2 times every day 0.5 MG - Active carvedilol 6.25 mg tablet TAKE ONE TABLET BY MOUTH TWICE A DAY WITH FOOD - Active dicyclomine 20 mg tablet take 1 tablet by oral route 4 times every day 20 MG - Active glimepiride 4 mg tablet take 1 tablet by oral route every 2 days 4 MG - Active hydroxyzine HCl 50 mg tablet take 1 tablet by oral route 4 times every day 50 MG - Active ipratropium 0.5 mg-albuterol 3 mg (2.5 mg base)/3 mL nebulization soln inhale 3 milliliter by nebulization route 4 times every day 3 milliliter - Active Lipitor 40 mg tablet TAKE ONE TABLET BY MOUTH DAILY - Active nortriptyline 25 mg capsule take 2 capsule by oral route 2 times daily - Active Pt to take 1 in Am and 3 in PM omeprazole 40 mg capsule,delayed release take 1 capsule by oral route every day before a meal 40 MG - Active ondansetron 4 mg disintegrating tablet take 1 tablet by oral route every [address] on top of the tongue where they will dissolve, then swallow 4 MG - Active Singulair 10 mg tablet take 1 tablet by oral route every day in the evening 10 MG - Active Symbicort 160 mcg-4.5 mcg/actuation HFA aerosol inhaler inhale 2 puff by inhalation route 2 times every day in the morning and evening 2.00 puff - Active thiamine HCl (vitamin B1) 100 mg tablet take 1 tablet by oral route every day 1 tablet - Active Ventolin HFA 90 mcg/actuation aerosol inhaler inhale 2 puff by inhalation route every 4 - 6 hours as needed 180 MCG - Active Vitamin D2 1,250 mcg (50,000 unit) capsule TAKE ONE CAPSULE BY MOUTH WEEKLY - Active Carafate 100 mg/mL oral suspension take 10 milliliter by oral route 4 times every day on an empty stomach 1 hour before meals and at bedtime - Active Presidio PharmaceuticalsTouch Ultra Blue Test Strip insert 1 unit by percutaneous route every 4 days for 30 days 1 unit - Active please subsitute with formulary Alcohol Prep Pads use to check blood sugar three times a day - Active OneTouch Delica Lancets 30 gauge use to test sugar 4 times a day - Active Aimovig Autoinjector 70 mg/mL subcutaneous auto-injector inject (70MG) by subcutaneous route every month in the abdomen, thigh, or outer area of upper arm 70 MG - Active Xifaxan 550 mg tablet take 1 tablet by oral route 3 times every day 550 MG - No Longer Active Pt having more diarrhea currently Mirapex 1.5 mg tablet TAKE ONE TABLET in A.M. ONE TABLET at NOON and 2 TABLETS AT BEDTIME - No Longer Active Procedures Procedure Date GLYCOSYLATED HEMOGLOBIN TEST OFFICE/OUTPATIENT VISIT, EST OFFICE/OUTPATIENT VISIT, EST OFFICE/OUTPATIENT VISIT, EST OFFICE/OUTPATIENT VISIT, EST OFFICE/OUTPATIENT VISIT, EST OFFICE/OUTPATIENT VISIT, EST OFFICE/OUTPATIENT VISIT, EST Limited Oral Eval GLYCOSYLATED HEMOGLOBIN TEST OFFICE/OUTPATIENT VISIT, EST DRUG TEST PRSMV DIR OPT OBS OFFICE/OUTPATIENT VISIT, EST OFFICE/OUTPATIENT VISIT, EST OFFICE/OUTPATIENT VISIT, EST OFFICE/OUTPATIENT VISIT, EST OFFICE/OUTPATIENT VISIT, EST OFFICE/OUTPATIENT VISIT, EST GLYCOSYLATED HEMOGLOBIN TEST OFFICE/OUTPATIENT VISIT, EST OFFICE/OUTPATIENT VISIT, EST OFFICE/OUTPATIENT VISIT, EST OFFICE/OUTPATIENT VISIT, EST GLYCOSYLATED HEMOGLOBIN TEST OFFICE/OUTPATIENT VISIT, EST OFFICE/OUTPATIENT VISIT, EST GLYCOSYLATED HEMOGLOBIN TEST URINALYSIS NONAUTO W/O SCOPE OFFICE/OUTPATIENT VISIT, EST OFFICE/OUTPATIENT VISIT, EST GLYCOSYLATED HEMOGLOBIN TEST OFFICE/OUTPATIENT VISIT, EST OFFICE/OUTPATIENT VISIT, EST OFFICE/OUTPATIENT VISIT, EST OFFICE/OUTPATIENT VISIT, EST OFFICE/OUTPATIENT VISIT, EST OFFICE/OUTPATIENT VISIT, EST GLYCOSYLATED HEMOGLOBIN TEST OFFICE/OUTPATIENT VISIT, EST OFFICE/OUTPATIENT VISIT, EST OFFICE/OUTPATIENT VISIT, EST GLYCOSYLATED HEMOGLOBIN TEST OFFICE/OUTPATIENT VISIT, EST IMMUNIZATION ADMIN HEP A VACCINE, ADULT IM OFFICE/OUTPATIENT VISIT, EST OFFICE/OUTPATIENT VISIT, EST OFFICE/OUTPATIENT VISIT, EST OFFICE/OUTPATIENT VISIT, EST IMMUNIZATION ADMIN HEP A VACCINE, ADULT IM Advance Directives Directive Yes / No Effective Date File Name No Information Encounters Encounter Description Practice Location Reason(s) For Visit Diagnoses Date Provider Providers Copied on Encounter [facility], [address] [place] [address], [id number] , tel:[phone] [facility] Colon cancer screening 2 Visci DO Allen. [address] [place] [address], [id number], [place]. tel:[phone] OFFICE/OUTPA TIENT VISIT, EST [facility], [address] [place] [address], [id number] , tel:[phone] [facility] Surgical Clearance (chief complaint) Type 2 diabetes mellitus with unspecified complicationsBod y mass index [BMI] 29.0-29.9, adultPreoperativ e clearanceBipolar 1 disorder 1 [facility] [address] [place] [address], [id number], [place]. tel:[phone] OFFICE/OUTPA TIENT VISIT, EST [facility], [address] [place] [address], [id number] , [place] tel:[phone] [facility] Elevated blood sugar (chief complaint) Body mass index [BMI] 29.0-29.9, adultType 2 diabetes mellitus with unspecified complicationsBip olar 1 disorder 1 [facility] DO Max. [address] [place] [address], [id number], [place]. tel:[phone] OFFICE/OUTPA TIENT VISIT, [facility], [address], [place], [id number] , [place] tel: [phone] [facility] GERD (chief complaint) Abdominal mass, unspecified abdominal location 1 [facility] Max. [address], [place], [id number], [place]. tel:[phone] OFFICE/OUTPA TIENT VISIT, [facility], [address], [place], [id number] , [place] tel: [phone] [facility] f/u meds (chief complaint)Ab dominal pain (chief complaint) Body mass index [BMI] 29.0-29.9, adultAbdominal mass, unspecified abdominal locationType 2 diabetes mellitus with unspecified complications 1 [facility] Max. [address], [place], [id number], [place]. tel:[phone] OFFICE/OUTPA TIENT VISIT, [facility], [address], [place], [id number] , [place] tel: [phone] [facility] f/u medications (chief complaint) Body mass index [BMI] 29.0-29.9, adultBipolar 1 disorderClosed fracture of right shoulder with routine healing, subsequent encounterType 2 diabetes mellitus with unspecified complications Apr- 1 [facility] DO Max. [address], [place], [id number], [place]. tel:[phone] OFFICE/OUTPA TIENT VISIT, [facility], [address], [place], [id number] , [place] tel: [phone] [facility] check up (chief complaint) Irritable bowel syndrome with both constipation and diarrheaSwelling of left side of faceBipolar 1 disorder Apr- 1 [facility] DO Max. [address], [place], [id number], [place]. tel:[phone] OFFICE/OUTPA TIENT VISIT, [facility], [address], [place], [id number] , [place] tel:[phone] [facility] Sleep Issues (chief complaint)In somnia (chief complaint) Body mass index [BMI] 29.0-29.9, adultBipolar 1 disorderClosed fracture of right shoulder with routine healing, subsequent encounterFibromy algiaIrritable bowel syndrome with both constipation and diarrheaLow back pain with radiationSwellin g of left side of face 1 [facility] DO Max. [address], [place], [id number], [place]. tel:[phone] [facility], [address] [place] [address], [id number] , [place] tel:[phone] Dental Clinic consult (chief complaint) Encounter for screening for dental disorders 1 Venkat Dsouza. [address] [place] [address], [id number], [place]. tel:[phone] OFFICE/OUTPA TIENT VISIT, [facility], [address], [place], [id number] , [place] tel:[phone] [facility] A1C (chief complaint)di abetes (chief complaint) Type 2 diabetes mellitus with unspecified complicationsBod y mass index [BMI]30.0-30.9, adultClosed fracture of right shoulder with routine healing, subsequent encounter 1 [facility] DO Max. [address], [place], [id number], [place]. tel:[phone] OFFICE/OUTPA TIENT VISIT, [facility], [address], [place], [id number] , [place] tel:[phone] [facility] Right shoulder pain, neck pain (chief complaint)UD S (chief complaint) Closed fracture of right scapula, unspecified part of scapula, initial encounterComplia nce with medication regimenBody mass index [BMI]30.0-30.9, adult Feb- 1 [facility] DO Max. [address], [place], [id number], [place]. tel:[phone] [facility], [address], [place], [id number] , [place] tel: [phone] [facility] COPD mixed type 1 [facility] Max. [address], [place], [id number], [place]. tel:[phone] OFFICE/OUTPA TIENT VISIT, [facility], [address] [place] [address], [id number] , [place] tel: [phone] [facility] f/u us (chief complaint)Sh ortness of breath (chief complaint) COPD mixed typeSwelling of left side of faceNeuropathyIn somnia, unspecified typeRenal calculiBody mass index [BMI] 29.0-29.9, adult 1 [facility]. [address] [place] [address], [id number], [place]. tel:[phone] OFFICE/OUTPA TIENT VISIT, [facility], [address] [place] [address], [id number] , [place] tel: [phone] [facility] hospital f/u (chief complaint)Sh ortness of breath (chief complaint) Body mass index [BMI] 29.0-29.9, adultSwelling of left side of faceCOPD mixed typeRib painType 2 diabetes mellitus with unspecified complicationsEss ential hypertension 1 [facility] Max. [address] [place] [address], [id number], [place]. tel:[phone] OFFICE/OUTPA TIENT VISIT, [facility], [address] [place] [address], [id number] , [place] tel: [phone] [facility] Hospital F/U (chief complaint) Body mass index [BMI] 28.0-28.9, adultCOPD mixed typeSwelling of left side of face 1 [facility] DO Max. [address] [place] [address], [id number], [place]. tel:[phone] OFFICE/OUTPA TIENT VISIT, [facility], [address], [place], [id number] , [place] tel:[phone] [facility] f/u er visit (chief complaint)Sh ortness of breath (chief complaint) Pneumonia due to infectious organism, unspecified laterality, unspecified part of lungRib painBody mass index [BMI] 28.0-28.9, adult 1 [facility] DO Max. [address] [place] [address], [id number], [place]. tel:[phone] OFFICE/OUTPA TIENT VISIT, [facility], [address] [place] [address], [id number] , [place] tel:[phone] [facility] Cough (chief complaint) COPD mixed type 1 [facility] Max. [address] [place] [address], [id number], [place]. tel:[phone] OFFICE/OUTPA TIENT VISIT, [facility], [address] [place] [address], [id number] , [place] tel:[phone] [facility] f/u a1c (chief complaint)de pression (chief complaint) Type 2 diabetes mellitus with unspecified complicationsBip olar 1 disorderNeuropat hySwelling of left side of face 1 [facility] Max. [address] [place] [address], [id number], [place]. tel:[phone] OFFICE/OUTPA TIENT VISIT, [facility], [address] [place] [address], [id number] , [place] tel:[phone] [facility] discuss ENT (chief complaint)Di arrhea (chief complaint)di abetes (chief complaint) Body mass index [BMI] 29.0-29.9, adultIrritable bowel syndrome with both constipation and diarrheaType 2 diabetes mellitus with complication, without long-term current use of insulinSwelling of left side of faceBipolar 1 disorder 1 [facility] Max. [address] [place] [address], [id number], [place]. tel:[phone] OFFICE/OUTPA TIENT VISIT, [facility], [address] [place] [address], [id number] , [place] tel:[phone] [facility] f/u CT (chief complaint) Body mass index [BMI] 28.0-28.9, adultSwelling of left side of face 1 [facility] Max. [address] [place] [address], [id number], [place]. tel:[phone] OFFICE/OUTPA TIENT VISIT, [facility], [address] [place] [address], [id number] , [place] tel:[phone] [facility] sick visit (chief complaint) Swelling of left side of faceBody mass index [BMI] 28.0-28.9, adult 1 [facility]. [address] [place] [address], [id number], [place]. tel:[phone] OFFICE/OUTPA TIENT VISIT, [facility], [address] [place] [address], [id number] , [place] tel:[phone] [facility] A1C (chief complaint)di abetes (chief complaint) Body mass index [BMI] 28.0-28.9, adultType 2 diabetes mellitus with complication, without long-term current use of insulinAbdominal mass, unspecified abdominal locationFibromya lgiaLow back pain with radiationCervica l radiculopathy at C7 1 [facility] Max. [address] [place] [address], [id number], [place]. tel:[phone] OFFICE/OUTPA TIENT VISIT, [facility], [address] [place] [address], [id number] , [place] tel:[phone] [facility] Leg Issues (chief complaint)ba ck pain (chief complaint) Body mass index [BMI] 28.0-28.9, adultFolliculiti sFibromyalgiaNeu ropathy 1 [facility] DO Max. [address], [place], [id number], [place]. tel:[phone] OFFICE/OUTPA TIENT VISIT, [facility], [address] [place] [address], [id number] , [place] tel:[phone] [facility] A1C (chief complaint)Ki dney stones (chief complaint) Type 2 diabetes mellitus with complication, without long-term current use of insulinBody mass index [BMI] 28.0-28.9, adultBurning with urinationRenal calculi 0 [facility] DO Max. [address], [place], [id number], [place]. tel:[phone] OFFICE/OUTPA TIENT VISIT, [facility], [address] [place] [address], [id number] , [place] tel:[phone] [facility] back pain (chief complaint) Low back pain with radiation 0 [facility] DO Max. [address], [place], [id number], [place]. tel:[phone] [facility], [address] [place] [address], [id number] , [place] tel:[phone] [facility] No Information 0 [facility] DO Max. [address] [place] [address], [id number], [place]. tel:[phone] OFFICE/OUTPA TIENT VISIT, [facility], [address] [place] [address], [id number] , [place] tel:[phone] [facility] F/U GI & HEART (chief complaint)ba ck pain (chief complaint)di abetes (chief complaint) Body mass index (BMI) 26.0-26.9, adultType 2 diabetes mellitus with complication, without long-term current use of insulinFibromyal farzana 0 [facility] DO Max. [address] [place] [address], [id number], [place]. tel:[phone] OFFICE/OUTPA TIENT VISIT, [facility], [address], [place], [id number] , [place] tel: [phone] [facility] Follow Up (chief complaint)Mu sculoskeleta l pain (chief complaint) Body mass index (BMI) 25.0-25.9, adultNeuropathyC OPD mixed typeEssential hypertension Feb- 0 [facility] DO Max. [address], [place], [id number], [place]. tel:[phone] OFFICE/OUTPA TIENT VISIT, [facility], [address], [place], [id number] , [place] tel: [phone] [facility] L leg pain & ER follow up (chief complaint)ba ck pain (chief complaint) Body mass index (BMI) 24.0-24.9, adultLow back pain with radiationEssenti al hypertensionTach ycardia 0 [facility] DO Max. [address], [place], [id number], [place]. tel:[phone] OFFICE/OUTPA TIENT VISIT, [facility], [address], [place], [id number] , [place] tel: [phone] [facility] Abdominal pain (chief complaint) Abdominal mass, unspecified abdominal location 0 [facility] DO Max. [address], [place], [id number], [place]. tel:[phone] OFFICE/OUTPA TIENT VISIT, [facility], [address], [place], [id number] , [place] tel:[phone] [facility] F/U ER (chief complaint)Ab dominal pain (chief complaint) Body mass index (BMI) 23.0-23.9, adultAbdominal pain in female Oct- 3-202 0 [facility] DO Max. [address], [place], [id number], [place]. tel:[phone] OFFICE/OUTPA TIENT VISIT, [facility], [address], [place], [id number] , [place] tel: [phone] [facility] TENS UNIT (chief complaint)ba ck pain (chief complaint) Body mass index (BMI) 23.0-23.9, adultLow back pain with radiation 0 [facility] DO Max. [address], [place], [id number], [place]. tel:[phone] OFFICE/OUTPA TIENT VISIT, [facility], [address] [place] [address], [id number] , [place] tel: [phone] [facility] A1C (chief complaint)Di arrhea (chief complaint) Type 2 diabetes mellitus with complication, without long-term current use of insulinBody mass index (BMI) 22.0-22.9, adultChronic diarrheaIrritabl e bowel syndrome with both constipation and diarrheaNeuropat hy 0 [facility] DO Max. [address] [place] [address], [id number], [place]. tel:[phone] OFFICE/OUTPA TIENT VISIT, [facility], [address] [place] [address], [id number] , [place] tel:[phone] [facility] F/U WEIGHT LOSS (chief complaint)Mu sculoskeleta l pain (chief complaint) Body mass index (BMI) 23.0-23.9, adultChronic diarrheaNeuropat hy 0 [facility] DO Max. [address] [place] [address], [id number], [place]. tel:[phone] OFFICE/OUTPA TIENT VISIT, [facility], [address] [place] [address], [id number] , [place] tel:[phone] [facility] Med f/u (chief complaint)Di arrhea (chief complaint) Body mass index (BMI) 23.0-23.9, adultIrritable bowel syndrome with both constipation and diarrheaType 2 diabetes mellitus with complication, without long-term current use of insulinNeuropath yEssential hypertension 9 [facility]. [address], [place], [id number], [place]. tel:[phone] OFFICE/OUTPA TIENT VISIT, [facility], [address], [place], [id number] , [place] tel:[phone] [facility] med refill &A1C (chief complaint)ba ck pain (chief complaint) Body mass index (BMI) 24.0-24.9, adultType 2 diabetes mellitus with complication, without long-term current use of insulinChronic pain syndromeNeuropat hy 9 [facility] Max. [address], [place], [id number], [place]. tel:[phone] OFFICE/OUTPA TIENT VISIT, [facility], [address] [place] [address], [id number] , [place] tel:[phone] [facility] med issues (chief complaint) Body mass index (BMI) 24.0-24.9, adultNeuropathyI rritable bowel syndrome with both constipation and diarrhea 9 [facility]. [address], [place], [id number], [place]. tel:[phone] OFFICE/OUTPA TIENT VISIT, [facility], [address], [place], [id number] , [place] tel:[phone] [facility] f/u (chief complaint)Di arrhea (chief complaint) Abdominal pain in femaleRight otitis media, unspecified otitis media typeOpiate withdrawalNeurop athy 9 [facility]. [address] [place] [address], [id number], [place]. tel:[phone] OFFICE/OUTPA TIENT VISIT, [facility], [address] [place] [address], [id number] , [place] tel:[phone] [facility] belly button drainage (chief complaint) Body mass index (BMI) 26.0-26.9, adultCellulitis and abscess of trunkCutaneous abscess of trunk, unspecifiedInsom elvira, unspecified typeIrritable bowel syndrome with both constipation and diarrhea 9 [facility]. [address], [place], [id number], [place]. tel:[phone] OFFICE/OUTPA TIENT VISIT, EST [facility], [address], [place], [id number] , [place] tel: [phone] [facility] 3 MONTH F/U (chief complaint) Body mass index (BMI) 26.0-26.9, adultTongue thrustMixed hyperlipidemiaTy pe 2 diabetes mellitus with complication, without long-term current use of insulin [address], [id number], [place]. tel:[phone] [facility], [address] [place] [address], [id number] , [place] tel: [phone] [facility] No Information 9 [facility]. [address] [place] [address], [id number], [place]. tel:[phone] [facility], [address] [place] [address], [id number] , [place] tel:[phone] [facility] Type 2 diabetes mellitus with complication, without long-term current use of insulin 9 [facility]. [address] [place] [address], [id number], [place]. tel:[phone] [facility], [address] [place] [address], [id number] , [place] tel:[phone] [facility] f/u insomnia (chief complaint) Body mass index (BMI) 27.0-27.9, adultType 2 diabetes mellitus with complication, without long-term current use of insulinInsomnia, unspecified typeCOPD mixed type Nov-0 9 [facility]. [address] [place] [address], [id number], [place]. tel:[phone] [facility], [address] [place] [address], [id number] , [place] tel: [phone] [facility] Chronic eczema Oct-0 9 [facility] DO [place]. [address] [place] [address], [id number], [place]. tel:[phone] [facility], [address] [place] [address], [id number] , [place] tel: [phone] [facility] diabetes (chief complaint) Type 2 diabetes mellitus with complication, without long-term current use of insulin Oct-0 9 [facility]. [address] [place] [address], [id number], [place]. tel:[phone] [facility], [address] [place] [address], [id number] , [place] tel: [phone] [facility] med refills (chief complaint) Body mass index (BMI) 27.0-27.9, adultType 2 diabetes mellitus with complication, without long-term current use of insulinInsomnia, unspecified typeEssential hypertension 9 [facility]. [address] [place] [address], [id number], [place]. tel:[phone] [facility], [address] [place] [address], [id number] , [place] tel: [phone] [facility] med refill (chief complaint) Type 2 diabetes mellitus with complication, without long-term current use of insulinEssential hypertensionMixe d hyperlipidemiaDe pression, unspecified depression typeChronic pain syndromeInsomnia , unspecified type 9 [facility]. [address] [place] [address], [id number], [place]. tel:[phone] Family History Family Member Type Diagnosis Age At Onset Mother Problem (finding) Diabetes mellitus Mother Problem (finding) Allergies Mother Problem (finding) Irritable bowel syndrom e Problem (finding) Family history of malignant neoplasm of cervix uteri Father Problem (finding) Mother Problem (finding) depression Mother Problem (finding) asthma Mother Problem (finding) malignant neoplasm of c ervix uteri Mother Problem (finding) hypertension Mother Problem (finding) Obesity Immunizations Vaccine Date Status Comments Rashid COVID refused Source: New Im munization Record Hep A (adult) administered Source: New Im munization Record Hep A (adult) administered Source: New Im munization Record Payers Payer name Insurance type Covered republican ID Authoriza tion(s) Medicaid Wrap - [facility] [id number] Medicaid Wrap - [facility] [id number] Medicaid Wrap - [facility] [id number] Social History Type Description Quantity Date Captured Comments Alcohol Use Details Unknown Caffeine Use Details Unknown Tobacco Use Status Smoking Status No Information Sex Female Sexual Orientation Straight or heterosexual Sep Gender Identity Female Chief Complaint And Reason For Visit No Information Reason For Referral Reason For Referral No Information Plan Of Treatment Date Type Action Status Goal Foot exam. Due on due Goal Dilated eye exam. Due on Aug due Goal Hemoglobin A1C. Due on due Goal Dental exam. Due on 022 due Goal Pneumococcal vaccine. Due on due Goal Urine microalbumin. Due on due Goal ECG. Due on due Goal Urinalysis due Goal Dental exam. Due on 021 due Goal Urine microalbumin. Due on due Goal Dilated eye exam. Due on Jun due Goal Urinalysis due Goal ECG. Due on due Goal Pneumococcal vaccine. Due on due Goal Hemoglobin A1C. Due on due Goal Foot exam. Due on due Goal Tobacco cessation counseling completed Goal Dietary management education , guidance, and counseling completed Goal Pneumococcal vaccine. Due on due Goal Hemoglobin A1C. Due on due Goal Dental exam. Due on due Goal Dilated eye exam. Due on May due Goal Foot exam. Due on due Goal Urine microalbumin. Due on due Goal ECG. Due on due Goal Urinalysis due Goal Dietary management education , guidance, and counseling completed Goal Tobacco cessation counseling completed Goal Urine microalbumin. Due on due Goal Dental exam. Due on due Goal Dilated eye exam. Due on May due Goal Foot exam. Due on due Goal Hemoglobin A1C. Due on due Goal Pneumococcal vaccine. Due on due Goal ECG. Due on due Goal Urinalysis due Goal Hemoglobin A1C. Due on due Goal Pneumococcal vaccine. Due on due Goal Dental exam. Due on due Goal ECG. Due on due Goal Urinalysis due Goal Dilated eye exam. Due on May due Goal Urine microalbumin. Due on due Goal Foot exam. Due on due Goal Dietary management education , guidance, and counseling completed Goal Tobacco cessation counseling completed Goal Urine microalbumin. Due on S due Goal Foot exam. Due on due Goal Hemoglobin A1C. Due on due Goal Dilated eye exam. Due on Apr due Goal Urinalysis due Goal ECG. Due on due Goal Pneumococcal vaccine. Due on due Goal Dental exam. Due on due Goal Dietary management education , guidance, and counseling completed Goal Urinalysis due Goal ECG. Due on due Goal Foot exam. Due on due Goal Pneumococcal vaccine. Due on due Goal Urine microalbumin. Due on S due Goal Hemoglobin A1C. Due on due Goal Dental exam. Due on due Goal Dilated eye exam. Due on Apr due Goal Tobacco cessation counseling completed Goal Pneumococcal vaccine. Due on due Goal Hemoglobin A1C. Due on due Goal Urine microalbumin. Due on A due Goal Dilated eye exam. Due on Mar due Goal Foot exam. Due on due Goal Dental exam. Due on due Goal ECG. Due on due Goal Urinalysis due Goal Dietary management education , guidance, and counseling completed Goal Tobacco cessation counseling completed Goal Pneumococcal vaccine. Due on due Goal ECG. Due on due Goal Urinalysis due Goal Hemoglobin A1C. Due on due Goal Urine microalbumin. Due on A due Goal Dental exam. Due on due Goal Foot exam. Due on due Goal Dilated eye exam. Due on Mar due Goal Dental exam. Due on due Goal Pneumococcal vaccine. Due on due Goal Dilated eye exam. Due on Mar due Goal Foot exam. Due on due Goal Urine microalbumin. Due on A due Goal Hemoglobin A1C. Due on due Goal ECG. Due on due Goal Urinalysis due Goal Tobacco cessation counseling completed Goal Dietary management education , guidance, and counseling completed Goal Hemoglobin A1C. Due on due Goal Urine microalbumin. Due on due Goal Pneumococcal vaccine. Due on due Goal Dilated eye exam. Due on Feb due Goal Foot exam. Due on due Goal Dental exam. Due on due Goal ECG. Due on due Goal Urinalysis due Goal Dietary management education , guidance, and counseling completed Goal Tobacco cessation counseling completed Goal Pneumococcal vaccine. Due on due Goal Urinalysis due Goal Hemoglobin A1C. Due on due Goal Urine microalbumin. Due on due Goal Foot exam. Due on due Goal ECG. Due on due Goal Dilated eye exam. Due on Feb due Goal Dental exam. Due on due Goal Pneumococcal vaccine. Due on due Goal Urine microalbumin. Due on due Goal Dental exam. Due on due Goal Foot exam. Due on due Goal Hemoglobin A1C. Due on due Goal Dilated eye exam. Due on Feb due Goal ECG. Due on due Goal Urinalysis due Goal Dietary management education , guidance, and counseling completed Goal Tobacco cessation counseling completed Goal Dilated eye exam. Due on Jan due Goal Dental exam. Due on due Goal ECG. Due on due Goal Urinalysis due Goal Urine microalbumin. Due on due Goal Foot exam. Due on due Goal Hemoglobin A1C. Due on due Goal Pneumococcal vaccine. Due on due Goal Tobacco cessation counseling completed Goal Dietary management education , guidance, and counseling completed Goal Urinalysis due Goal ECG. Due on due Goal Foot exam. Due on due Goal Hemoglobin A1C. Due on due Goal Pneumococcal vaccine. Due on due Goal Urine microalbumin. Due on due Goal Dilated eye exam. Due on Jan due Goal Dental exam. Due on due Goal Tobacco cessation counseling completed Goal Dietary management education , guidance, and counseling completed Goal Dental exam. Due on due Goal Foot exam. Due on due Goal Hemoglobin A1C. Due on due Goal Pneumococcal vaccine. Due on due Goal Urine microalbumin. Due on due Goal Dilated eye exam. Due on December due Goal Urinalysis due Goal ECG. Due on due Goal Dietary management education , guidance, and counseling completed Goal ECG. Due on due Goal Urinalysis due Goal Hemoglobin A1C. Due on due Goal Urine microalbumin. Due on due Goal Dilated eye exam. Due on December due Goal Foot exam. Due on due Goal Pneumococcal vaccine. Due on due Goal Dental exam. Due on due Goal Dilated eye exam. Due on December due Goal Foot exam. Due on due Goal Hemoglobin A1C. Due on due Goal Urine microalbumin. Due on M due Goal ECG. Due on due Goal Urinalysis due Goal Pneumococcal vaccine. Due on due Goal Dental exam. Due on due Goal Tobacco cessation counseling completed Goal Urine microalbumin. Due on A due Goal Hemoglobin A1C. Due on due Goal Foot exam. Due on due Goal Dilated eye exam. Due on Nov due Goal Urinalysis due Goal ECG. Due on due Goal Pneumococcal vaccine. Due on due Goal Dental exam. Due on due Goal Dietary management education , guidance, and counseling completed Goal Tobacco cessation counseling completed Goal Dental exam. Due on due Goal Hemoglobin A1C. Due on due Goal Pneumococcal vaccine. Due on due Goal ECG. Due on due Goal Urinalysis due Goal Urine microalbumin. Due on M due Goal Dilated eye exam. Due on Oct due Goal Foot exam. Due on due Goal Tobacco cessation counseling completed Goal Dietary management education , guidance, and counseling completed Goal Urine microalbumin. Due on due Goal Foot exam. Due on due Goal Pneumococcal vaccine. Due on due Goal Dilated eye exam. Due on Sep due Goal Dental exam. Due on due Goal Hemoglobin A1C. Due on due Goal Urinalysis due Goal ECG. Due on due Goal Dietary management education , guidance, and counseling completed Goal Tobacco cessation counseling completed Goal Pneumococcal vaccine. Due on due Goal Urine microalbumin. Due on due Goal Foot exam. Due on due Goal Hemoglobin A1C. Due on due Goal Dental exam. Due on due Goal Dilated eye exam. Due on Sep due Goal ECG. Due on due Goal Urinalysis due Goal Dietary management education , guidance, and counseling completed Goal Tobacco cessation counseling completed Goal Pneumococcal vaccine. Due on due Goal Hemoglobin A1C. Due on due Goal Dental exam. Due on due Goal Foot exam. Due on due Goal Urinalysis due Goal ECG. Due on due Goal Dilated eye exam. Due on Aug due Goal Urine microalbumin. Due on J due Goal Tobacco cessation counseling completed Goal Dietary management education , guidance, and counseling completed Goal Dilated eye exam. Due on Jun due Goal Dental exam. Due on due Goal Pneumococcal vaccine. Due on due Goal Urine microalbumin. Due on due Goal Hemoglobin A1C. Due on due Goal Foot exam. Due on 0 due Goal ECG. Due on due Goal Urinalysis due Goal Tobacco cessation counseling completed Goal Dietary management education , guidance, and counseling completed Goal Dental exam. Due on due Goal Hemoglobin A1C. Due on due Goal Foot exam. Due on 0 due Goal Dilated eye exam. Due on May due Goal Pneumococcal vaccine. Due on due Goal Urine microalbumin. Due on O due Goal ECG. Due on due Goal Pneumococcal vaccine. Due on due Goal Dilated eye exam. Due on Mar due Goal Dental exam. Due on due Goal Urine microalbumin. Due on A due Goal Foot exam. Due on 0 due Goal Hemoglobin A1C. Due on due Goal ECG. Due on due Goal Foot exam. Due on 0 due Goal Pneumococcal vaccine. Due on due Goal Dental exam. Due on due Goal Urine microalbumin. Due on due Goal ECG. Due on due Goal Dilated eye exam. Due on Mar due Goal Hemoglobin A1C. Due on due Goal Tobacco cessation counseling completed Goal Dietary management education , guidance, and counseling completed Goal Urine microalbumin. Due on due Goal Dilated eye exam. Due on Feb due Goal Dental exam. Due on due Goal Foot exam. Due on 0 due Goal Pneumococcal vaccine. Due on due Goal Hemoglobin A1C. Due on due Goal ECG. Due on due Goal Dietary management education , guidance, and counseling completed Goal Tobacco cessation counseling completed Goal Dilated eye exam. Due on Jan due Goal Urine microalbumin. Due on due Goal Dental exam. Due on due Goal Foot exam. Due on 0 due Goal Hemoglobin A1C. Due on due Goal Pneumococcal vaccine. Due on due Goal ECG. Due on due Goal Tobacco cessation counseling completed Goal Dietary management education , guidance, and counseling completed Goal Foot exam. Due on 0 due Goal Hemoglobin A1C. Due on due Goal Pneumococcal vaccine. Due on due Goal Urine microalbumin. Due on due Goal ECG. Due on due Goal Dental exam. Due on 020 due Goal Dilated eye exam. Due on December due Goal Dietary management education , guidance, and counseling completed Goal Tobacco cessation counseling completed Goal Tobacco cessation counseling completed Goal Dietary management education , guidance, and counseling completed Goal Tobacco cessation counseling completed Goal Dietary management education , guidance, and counseling completed Goal Dietary management education , guidance, and counseling completed Goal Tobacco cessation counseling completed Goal Dietary management education , guidance, and counseling completed Goal Tobacco cessation counseling completed Goal Dietary management education , guidance, and counseling completed Goal Tobacco cessation counseling completed Goal Dietary management education , guidance, and counseling completed Goal Tobacco cessation counseling completed Goal Tobacco cessation counseling completed Goal Dietary management education , guidance, and counseling completed Goal Tobacco cessation counseling completed Goal Tobacco cessation counseling completed Goal Dietary management education , guidance, and counseling completed Goal Tobacco cessation counseling completed Goal Dietary management education , guidance, and counseling completed Goal Dietary management education , guidance, and counseling completed Goal Tobacco cessation counseling completed Referral Ordered: SCREENING COLONOSCOPY [id number] Ordered: Rheumatology (related to Fibromyalgia) [id number] Ordered: Referrals: Rheumatology [id number] Ordered: Referrals: Orthopedic Surgery [id number] Ordered: Complete PFT With Bronchodilator [id number] Ordered: Maxillofacial Surgery (related to Swelling of left side of face) [id number] Ordered: Referrals: Urology [id number] Ordered: Referrals: Maxillofacial Surgery [id number] Ordered: Referrals: Pulmonology [id number] Ordered: US Exam Of Head & Neck Bilateral [id number] Ordered: CT Thorax W/O & W/Dye [id number] Ordered: CT Neck Spine W/O Dye [id number] Ordered: Surgery (related to Swelling of left side of face) [id number] Ordered: Referrals: Surgery [id number] Ordered: Otolaryngology (related to Swelling of left side of face) [id number] Ordered: Referrals: Otolaryngology [id number] Ordered: CT Maxillofacial W/O Dye [id number] Ordered: CT Soft Tissue Neck W/O Dye [id number] Ordered: CT Abdomen & Pelvis With Contrast [id number] Order: Lab OrderGLYCOSYLATED HEMOGLOBIN TEST ([id number]), Collected on: , Sent on: [id number] Order: Lab OrderCompliance Drug Analysis, Ur ([id number]), Collected on: , Sent on: [id number] History Of Present Illness Encounter Date Complaint History Of Prese nt Illness Surgical Clearance Pt here today for Surgical Clearance and A1C. PT is having surgery on 06/[address] House on R foot. Pt was given a prescription from Dr. House for pain medication for after her surgery. Dr. Newton informed. Pt given letter today informing him Dr. Newton leaving our office & last day was 07/12. No medications or apts will be made after this day Pt signed letter and verbalized understanding. OARRS completed, last filled Percocet 06/05/21TGrodi LPNPt states her IBS is not doing well again with increase diarrhea and her memory is not good since she started the new medication for sleep and anxiety Elevated blood sugar Pt here tod ay with complaints of not sleeping and elevated blood sugar. Pt called this morning stating blood sugar has been running in 400-500. Told patient she needed to go to the ER but she requested an apt and did not want to go to ER. Pt was recently put on Prednisone and this is when the not sleeping and elevated blood sugar started happening. OARRS completed, last filled Percocet 05/25 & Xanax 05/15TGrodi ANIMAL KILLER ,above was reviewed and agreed with MLP GERD The problem has worsened. The symptoms are recurring. The location is diffuse. The quality of the pain is colicky. The denies aggravating factors. The denies relieving factors. Associated symptoms include back pain, bloating, change in appetite, constipation, diarrhea, flank pain, flatulence, heartburn, nausea and vomiting. Pertinent negatives include blood in stool, diaphoresis, dizziness, dyspnea, fever, hematuria, jaundice, lightheadedness and rash. f/u meds Pt here for f/u medications. Pt states one of here medications is causing her to hallucinate, states she does not know which medication is causing it but thinks its the Oxybutinin. Pt also c/o vomiting for last 4 nights, pt states she has been using Bentyl and it seems to help with the vomiting and stomach pain. Pt denies any other issues or concerns. CLIFTON Shi Abdominal pain The problem is s evere. The problem has worsened. The symptoms are recurring. The location is diffuse. The reports radiation to the back. The quality of the pain is achy and colicky. These symptoms occur after meals. Aggravating factors include bowel movement and constipation. Symptoms are relieved by analgesics. Symptoms are not relieved by antacids or bowel movement. Associated symptoms include back pain, bloating, change in appetite, constipation, diarrhea, flank pain, flatulence, heartburn, myalgia and nausea. Pertinent negatives include blood in stool, dizziness, dyspnea, fever, hematuria, jaundice, rash and vomiting. f/u medications Pt here for f/u and medication refills. Pt c/o feeling horrible, states she had heart [place] [facility] [place]. Pt c/o bilateral groin pain, denies injury. Mahesh Shi also states her anxiety is very much out of control and has not found anything to help ,above was reviewed and agreed with [facility] check up Patient was seen in [place] a few weeks ago by an ortho doctor, pt states that she got into it with that doctor and explains that she went to see an ortho doctor in [place] instead. Pt is currently scheduled to start physical therapy for her right shoulder. Patient would like medication refills. Patient reports a recently difficulty with falling asleep and staying asleep. Pt explains that she has had issues with anxiety lately. [id number]: 21Pt states that the swelling in her face is now going down into her neck and the pain has changed she has appointment with ENT but now very soon, Pt states the pain is getting worse. Sleep Issues Pt here today fo r sleep issues. Pt states she was started on Tegretol and started Hallucinated, Pt states she has not been able to sleep for the last week. States she is getting about an hour and a half total but states its not all together. States her arm is still very painful. She seen Dr. Pena then seen Dr. Simon and he treated her like she was a drug addict. States she does not have a follow up there because she was not scheduled to come back. Pt states she will not see Dr. Simon again. OARRS completed, Last Filled [place] 04/[address] Pena, Percocet from [facility], Tramadol 03/[address] Pena & Percocet 03/[address] Silveira [facility] Insomnia The patient pres ents with sleep problems. The symptoms are worsening. These complaints are episodic. Relevant history: a BMI of 29.65. The patient has the following risk factors for insomnia: age > 40 years, BMI > 25, family history of depression, hypertension, smoking and use of sedatives. Denies relieving factors. The patient is experiencing depression, difficulty initiating sleep, difficulty maintaining sleep, heartburn, increased fatigue, irritability and personality changes. The patient denies awakening with choking, awakening with shortness of breath, gasping during sleep, headache upon awakening or nasal congestion. consult consult diabetes The problem is s table. Risk factors include: family history diabetes mellitus and over age 4545 years old. Patient is compliant with using medication, follow-up, and using education materials. Managing with: Oral medications. Comorbidity: Hypertension. Associated symptoms include: burning of extremities and diarrhea. Pertinent negatives include blurred vision, chest pain, constant hunger, foot ulcers, frequent infections, urinary frequency, nocturia and polydipsia. Additional information: we change medication a few months ago and pt has been running a little high since then. A1C Pt here today fo r A1C check. Last result was 5.6 on 12/26/20.Pt states she has seen orthopedic but states she did not see eye to eye with doctor. He wants her to be able to move elbow within a week but she does think she will be able too. Pt states she is still in a lot of pain and requesting more pain medication. Pt took off sling while in room. States she felt like she did more damage to upper arm, feels like jello now. Denies any injury again but states she did just hit door in waiting room earlier. OARRS completed, last filled Percocet 03/13TGrodi ANIMAL KILLER Right shoulder pain, neck pain P resents for right shoulder pain d/t fall on 03/10/2021. States her tegretol is causing her to see things and do strange things. Reports that she thought her daughters dog was jumping at her and she dove on the ground. Went to [facility] ER and was diagnosed with a fracture right shoulder. Pt is wearing a sling to right shoulder. Also c/o neck pain. Claribel Del Valle RN UDS + BUP, OXY, and TCA. Claribel Del Valle RNPt denies taking anything other then the oxycodone that she was prescribed in the ER, see Oarrs for details f/u us Pt here for f/u US. Pt c/o sob with increased activity, states she has been on 2L of O2 since last appt. Pt denies any other issues or concerns. Mahesh Shi is having more issues with the swelling and enlarging soft issues are on the sides of her face, Pt US of her neck did not show any concerning problems, but the cheeks are growing, Pt also notes they are getting more painful. Shortness of breath the patient' s dyspnea has stabilized. Episodes occur daily. The severity is moderately severe. The patient notes inability to get air in and difficulty getting air out. Symptom is aggravated by mild activity (eg. walking). Symptom is relieved by oxygen use. Associated symptoms include fatigue and pleuritic pain. Pertinent negatives include anxiety, chest pressure/discomfort, chills, dry cough, excessive sputum, fever, hemoptysis, productive cough, purulent sputum, substernal chest pain, thromboembolic events, unilateral leg edema and wheezing. hospital f/u Pt here today fo r hospital f/u. Pt was admitted to [facility] 01/13/21 for COPD exacerbation. Pt is now currently on 3 L O2. Pt states that her breathing is still all over the place. Pt states that they took her off her Metformin and was told to resume all her medications except the Metformin. Pt has been checking blood sugar at home and states that she has been in the 200s. Pt does need refills for her test strips. Pt states that the pharmacist told her that she needs a new script for either more test strips or instructions that state to test more frequently. Prescription states to dispense 100 but the pharmacy only gives her 50. Pt has been checking her b/p at home with last reading 163/100. Pt decreased her smoking from 1.5 PPD to 5 cigarettes/day shortly before her hospitalization. No other complaints at this time. Kiki Wilson RN Shortness of breath Episodes occ ur frequently. The patient notes difficulty getting air out. Symptom is aggravated by mod activity (eg. climbing stairs). Symptom is relieved by nebulizers. Associated symptoms include chest pressure/discomfort, excessive sputum, fatigue, pleuritic pain, productive cough and wheezing. Pertinent negatives include anxiety, chills, fever, hemoptysis, lower extremity edema, purulent sputum, thromboembolic events and unilateral leg edema. Hospital F/U Pt here today r hospital follow up. Pt states she went to [facility] Saturday cause not doing any better from her visit on 01/11. Pt states she was kept overnight. Pt states she was diagnosed with COPD exacerbation. Pt was placed on 3L of oxygen, which she has with her today. PT states she feels alot better being on the oxygen but still has no voice. Pt states she is feeling better breathing lr as well. Pt states she has a sore throat and a swollen L ear. PT states this started about 3 days ago. No other issues or concernsTGrodyolanda watson LPN was reviewed and agreed with MLP Shortness of breath the patient' s dyspnea has fluctuated. Episodes occur intermittently. The severity is mildly severe. The patient notes inability to get air in. Symptom is aggravated by bending forward and mod activity (eg. climbing stairs). Symptom is relieved by oral prednisone, oxygen use and rescue inhalers. Associated symptoms include chills, excessive sputum, fatigue, pleuritic pain, productive cough and purulent sputum. Pertinent negatives include anxiety, chest pressure/discomfort, dry cough, fever, lower extremity edema, thromboembolic events and unilateral leg edema. f/u er visit Pt here for f/u ER visit. Pt was evaluated at [place] ER on 01/07/21 d/t sob, pt was dx with pneumonia and given rx for steroids and antibiotic. Pt states she feels a little better but still has no energy and a cough at times. Pt requesting a repeat lab on elevated Lactate levels. Pt denies any other issues or concerns. CLIFTON Shi Cough Onset: sudden. T he patient describes the cough as hacking and non-productive. It occurs persistently. The problem has become gradually worse. Context: COPD and smoker. Symptoms are aggravated by exercise and lying down. There are no relieving factors. Associated symptoms include chills, cough, fatigue, hoarseness, sore throat and wheezing. Pertinent negatives include dyspnea, dyspnea on exertion, epistaxis, fever, heartburn, night sweats and pleuritic pain. Additional information: Pt was unable to talk much because of the amount of hoarseness so her boyfriend had her on speaker and repeated what she was trying to say. f/u a1c Pt here for f/u a1c. Pt c/o R jaw/ear pain. Pt requesting refills on he Albuterol Inhaler. Pt denies any other issues or concerns. Mahesh Shi states she was unable to take the antiboitic that was given by the ENT depression This is a follow up visit. There is worsening of previously reported symptoms. The patient reports functioning as very difficult. The patient presents with anxious/fearful thoughts, depressed mood, difficulty concentrating, difficulty staying asleep, diminished interest or pleasure, excessive worry, fatigue and restlessness but denies compulsive thoughts, decreased need for sleep, difficulty falling asleep, easily startled, increased energy ordecreased libido. The patient's relieving factors are a poor response to medication. The depression is associated with chronic pain, headache and irritability. The patient denies any nausea, sweating, trembling and vomiting. discuss ENT Pt here to discu ENT appt and diabetic supplies. Pt states she would like to also discuss Dr. Newton taking over her medication that Dr. Remy prescribes d/t her having difficulties getting to her appointments. Pt denies any other issues or concerns. CLIFTON Shi Diarrhea The describes it as loose. It occurs cyclically. Symptom is aggravated by stress. She denies relieving factors. Associated symptoms include abdominal pain, anorexia, bloating, cramping (abdominal), distention (abdominal), joint pain and nausea. Pertinent negatives include blood in stool, decreased urine output, fecal incontinence, fever, rash, vomiting and weight loss. diabetes The problem is g etting worse. Risk factors include: family history diabetes mellitus and over age 4545 years old. Patient is compliant with using medication, follow-up, and using education materials. Managing with: Oral medications., Avg 250. Comorbidity: Hypertension. Associated symptoms include: blurred vision, burning of extremities, dental disease, diarrhea, heartburn and increased fatigue. Pertinent negatives include chest pain, constant hunger, dyspnea, frequent infections, urinary frequency, hypoglycemic episodes and weight loss. f/u CT Pt here to meir singh CT. Pt was evaluated in ED at [facility] last Saturday d/t L face pain and swelling, pt states she was prescribed steroids and Hydrocodone d/t pain, states they also did a CT scan. Pt c/o increased dry mouth that started when she noticed the swelling on her L face/jaw area. Pt denies any other issues or concerns. CLIFTON Shi ,above was reviewed and agreed with MLP sick visit Pt c/o lump uppe r jaw and sore throat. Pt states it started 2 days ago, denies taking any OTC medications. Pt denies any other issues or concerns. ClaribelHoneycuttMahesh states that she is having trouble swallowing and the pain is horrible, she is having trouble sleeping, and having trouble turning her head. diabetes The problem is g etting worse. Risk factors include: family history diabetes mellitus and over age 4545 years old. Patient is compliant with using medication, follow-up, and using education materials. Managing with: Oral medications. Comorbidity: Hypertension. Associated symptoms include: burning of extremities, diarrhea, heartburn and increased fatigue. Pertinent negatives include blurred vision, chest pain, constant hunger, dyspnea, foot ulcers and hypoglycemic episodes. Additional information: Pt is also having a lot of fatigue and muscle pain including the low back pain that she also just got injections for by Dr fay. A1C Pt here today fo r A1C check. Pt states her sciatic nerve in her back is pinched and making her miserable. OARRS completed, last filled Clorazepate 09/06TGrodi [facility] Leg Issues Pt here today wi th complaints of leg pain. Pt states since she got the EMG her legs have hurting really bad. Pt states she got the EMG done a couple weeks ago and they told her to take a Medrol dose pack. Pt states she already got a Medrol dose pack from the ER. Pt states the EMG showed nerve damage but she did not prescribe her anything. She states they told her they cant prescribe anything for pain and they cant prescribe pain medication until January. Pt is requesting pain medications today. Pt was referred to Pain management and she states they didnt want to deal with her so they sent her to [facility]. Pt states she went to [facility] and she was offered counseling. Pt states she was never offered to get injections for pain. OARRS completed, last filled [place] 06/27 for 3 daysTGrodi [facility]IM[facility] KILLER back pain The problem is w orsening. It occurs persistently. Location of pain is lower back. Pain is radiated to the left ankle, right ankle, left arm, right arm, left calf, right calf, left foot, right foot, left thigh and right thigh. The patient describes the pain as burning and diffuse. Context: inflammatory bowel disease. Symptoms are aggravated by bending, changing positions and daily activities. Symptoms are relieved by movement. Additional information: we had tried many different meds to help with this and her fibromyg. A1C Pt here today fo r A1C test. Last result was 5.9 on 03/28. Pt states that it feels like glass is coming out of her when she urinates. Pt states this started yesterday. Pt states she is going to pain management to a doctor in [facility] completed, last filled Tramadol 06/01 & 05/30 from Mary Otero out of [facility] Kidney stones Onset: sudden. P ain level is moderate-severe. The problem occurs intermittently and is getting worse. Location of pain is left flank. There is no history of kidney stones. Symptom is aggravated by urination. There is radiation to the groin. Context includes history of prior stone(s), inflammatory bowel disease and recurrent UTI. No recent ER visit was made. There are no relieving factors. Associated symptoms include back pain, dysuria, flank pain, hematuria (gross with clots), pelvic pain, suprapubic pain and urinary blood clots. Pertinent negatives include bloating, chills, diarrhea, fever and nausea. back pain The problem is w orsening. It occurs persistently. Location of pain is lower back. Pain is radiated to the left ankle, right ankle, left calf, right calf, left foot, right foot, left thigh and right thigh. The patient describes the pain as burning and numbness. Symptoms are aggravated by daily activities, standing and walking. Symptoms are relieved by pain meds/drugs and rest. Additional information: Pt states she did something and the back pain got much worse now going down both legs, she already has appointment at pain managment next week but was in ER and they gave her some meds that helped. F/U GI & HEART Pt here today fo r follow up GI visit and heart cath. Pt states both procedures went well. Pt states for her heart cath they did not find anything or have to place any stentsPt states her GI, they found a lipoma in her colon they took a biopsy of but she has no results of that yet. Pt states she has a lump on her R side of her butt that hurts. Pt states it has been there for months now. Pt states it is causing increasing pain is why she is bringing it up. Pt denies any injection or trauma to the site. OARRS completed, no other issues or concernsTGrodi ANIM[facility] KILLER back pain Location of pain is lower back, gluteal area, arms, legs and thighs. The patient describes the pain as burning and deep. Symptoms are aggravated by night pain.The patient denies relieving factors. Additional information: Pt has tried several things including SI injection recently and still not getting much relief. diabetes The problem is g etting worse. Risk factors include: over age [age] years old. Patient is compliant with using medication, and follow-up. Managing with: Oral medications. Associated symptoms include: blurred vision, burning of extremities, diarrhea, increased fatigue and polydipsia. Pertinent negatives include chest pain, constant hunger and hypoglycemic episodes. Follow Up Pt here today fo r a follow up. Pt states things are going good and bad. Pt states whats going bad is her pain. Pt states her pain is in her back, legs, feet and arms. Pt states PM is focusing on her back only. Pt states she needs to have a heart cath on 03/03. Pt states she has a leaky valve and they are going in to see if she has any blockages. Pt states whats going good is she is alive. Pt states we need to get ahold of the place we sent her tens unit so she can get her pads every month. Pt states she also needs a new prescription for nebulizer machine and accessories. Pt states her last one she got many years ago has broke. OARRS completed, last filled Tramadol 01/05/2020TGrodi [facility]IM[facility] KILLER Musculoskeletal pain It occurs c onstantly and is fluctuating. The pain is aggravated by movement. The pain is relieved by pain/RX meds. Associated symptoms include decreased mobility, difficulty initiating sleep, nocturnal awakening and nocturnal pain. Pertinent negatives include bruising, crepitus, joint instability, limping, locking and swelling. L leg pain & ER follow up Pt her e today for L leg pain and ER follow up. Pt states the pain is right under her L butt area and shoots straight up into my vagina . Pt states she has a lump in her lower back. Pt states she went to get her colonoscopy at [facility] because Dr. Cramer found a lesion that he wanted to look at again. Pt states she went in for this and her Heart rate was in the 180's so they did not do the colonoscopy and she was kept at [facility] for observation. Pt was allowed to go home the next day. PT states that they recommend her to have a holter monitor and stress test which she has scheduled. Pt was referred to cardiology. She was told she has a leaky valve. PT NEEDS REFILLS ON ALCOHOL PADS, CALCIUM/VIT D, COREG, DULERA, OMEPRAZOLE, MIRAPEX, VITAMIN B1, VENTOLIN. OARRS completed, last filled Tramadol 01/04TGrodi [facility]IM[facility] KILLER back pain Location of pain is lower back. Pain is radiated to the dermatome anteriorly. The patient describes the pain as shooting and stabbing. Symptoms are aggravated by lifting, lying/rest, standing and twisting.The patient denies relieving factors. Additional information: Pt states that nothing is helping with this so far. Abdominal pain The problem is s evere. The problem has worsened. The symptoms are recurring. The location is right lower quadrant. The reports radiation to the back. The quality of the pain is colicky and stabbing. These symptoms occur after bowel movement. These symptoms do not occur after meals, with menses, on urination, with recent antibiotic use and after recent foreign travel. Aggravating factors include bowel movement and constipation. Symptoms are not aggravated by alcohol or anxiety. The denies relieving factors. Associated symptoms include back pain, bloating, blood in stool, change in appetite, diarrhea and lightheadedness. Pertinent negatives include constipation, diaphoresis, dizziness, dyspnea, fever, flank pain, heartburn, jaundice, nausea, rash and vomiting. Abdominal pain The problem is s evere. Pain scale: 9/10. The problem has worsened. The symptoms are recurring. The location is midline and homer-umbilical. The patient reports radiation to the back. The quality of the pain is colicky, stabbing and throbbing. These symptoms occur with recent antibiotic use. These symptoms do not occur with menses and on urination. Symptoms are not aggravated by alcohol or anxiety. Symptoms are relieved by antacids. Symptoms are not relieved by bowel movement, change in position, H2 blockers, OTC meds, proton pump inhibitors, rest or vomiting. Associated symptoms include back pain, bloating, change in appetite, diarrhea, heartburn and myalgia. Pertinent negatives include blood in stool, constipation, diaphoresis, dizziness, dyspnea, fever, flank pain, flatulence, hematuria, jaundice, lightheadedness, nausea, rash and vomiting. F/U ER Pt here today fo r f/u from ER. Pt was evaluated in [facility] on Saturday d/t increased lower back pain, radiating down both her legs. Pt states they gave her and injection and an rx for Percocet and Flexeril, states she is still having the pain. Pt c/o not being able to sleep d/t pain, states she is using her TENS Unit but not getting much relief. Pt denies any further issues or concerns. Mika LAZO TENS UNIT Pt here today to talk about getting a TENS Unit. Pt contacted a home medical pharmacy to get one of these. Pt states she had one in the past but states she qualifies for a new machine. Pt needs a prescription written for this plus the supplies she needs to use. Pt uses this machine on her lower back & neck for her pain. Pt states it does help relieve some of her pain. PT NEEDS REFILLS ON XIFAXAN. NO other issues or concernsTGrodi ANIMAL KILLER back pain Onset: gradual w ith injury. The problem is worsening. It occurs persistently. Location of pain is lower back. Pain is radiated to the back.The patient describes the pain as burning, deep and discomforting. Context: hard fall and inflammatory bowel disease. Symptoms are aggravated by daily activities. Symptoms are relieved by over the counter medication: ibuprofen and pain meds/drugs. A1C Pt here today fo r A1C check. Last result was 5.4 on 07/01. Pt states that she is still losing weight, c/o N/V with diarrhea. Pt states that her insurance will no longer cover Onglyza. Denies any further issues or concerns. PT NEEDS REFILLS ON AMLODIPINE, LIPITOR, COREG, DULERA, HYOSCYAMINE, MIRAPEX, NUEDEXTA, ONGLYZA, SINGULAIR, WELCHOL, & ZYRTEC. OARRS completed, last filed Percocet 07/[address] Martin House. Mika LAZO Diarrhea Onset: gradual. Severity level is: moderate-severe. Stool frequency: 10 times a day. The describes it as loose and mucus present. It occurs constantly. The problem is without change. She denies aggravating factors. She denies relieving factors. Associated symptoms include anorexia, change in appetite, joint pain and weight loss. Pertinent negatives include abdominal pain, bloating, blood in stool, cramping (abdominal), decreased urine output, distention (abdominal), fecal incontinence, fever, flatulence, nausea, rash and vomiting. F/U WEIGHT LOSS Pt here today to follow up on weight loss and recent ER visit. Pt states she was in the ER last weekend with chest pains. PT was told that her K+ was low. PT was given k+ to drink and was given tablets to take him. Pt has not had chest pain since. PT has finished her home K+ tablets 2 days ago and denies any symptoms since. PT states she last weighed herself at [facility] and she was at 139.0. 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 Pt wrote down the symptoms, testing and treatment for this condition and wants to talk to Dr. Newton about this. PT NEEDS REFILLS ON HYOSCYAMINE, SINGULAIRNo other issues or concerns. Roxanne ROWLAND Musculoskeletal pain Onset: 10 y ears ago. Severity level is moderate. It occurs constantly and is fluctuating. The pain is aching and burning. Context: there is no injury. The pain is aggravated by movement. The pain is relieved by pain/RX meds. Associated symptoms include decreased mobility, difficulty initiating sleep, nocturnal pain, spasms and swelling. Pertinent negatives include bruising, crepitus, joint instability, joint tenderness, limping, locking and popping. Med f/u Pt here today fo r a medication follow up. Pt states things are going okay. Pt has no shoes on her feet, has one sock on her R foot and a pink slipper on her Left. Pt interrupted me when I was talking and got up and said she needs to go to the restroom. Pt states she is still having bouts of diarrhea and she is losing alot of weight in a short amount of time. PT states she has lost 30-50 pounds in the last few months. Pt states she is going to see Dr. Maharaj tomorrow in [place] for PM. Pt states Dr. House had to cut open the top of her R foot and had to grind down a bone. Pt had this done yesterday. Pt is following with him on this. PT NEEDS REFILLS ON ONGLYZA, IBGARD, NEBULIZER SOLUTION, VENTOLIN. OARRS completed, last filled Gabapentin 07/02 for 4 days, Phenobarbital 06/03 & Xanax 05/[address] Remy. TGrodi ANIMAL KILLER Diarrhea Onset: sudden. S tool frequency: 8 times a day. The describes it as loose. It occurs daily. The problem is worse. Symptom is aggravated by stress. She denies relieving factors. Associated symptoms include abdominal pain, anorexia, joint pain and weight loss. Pertinent negatives include bloating, blood in stool, cramping (abdominal), decreased urine output, distention (abdominal), fecal incontinence and rash. Additional information: no family history of colon cancer. med refill &A1C Pt here today fo r medication refills & A1C CHECK. Last result was 5.4 on 02/04 No other issues or concerns today. Pt states Dr. Remy took patient off her Xanax. Pt states she was urine tested there and she tested negative for the medication. OARRS completed, last filled Phenobarbital 06/03, Xanax [address] Remy, Gabapentin 05/19 & Percocet /[address] Gagan Fay. TGrodi ANIMAL KILLER back pain The problem is w orsening. It occurs persistently. Location of pain is arms and legs.The patient describes the pain as an ache, burning and diffuse. Context: no injury. Symptoms are aggravated by daily activities. Symptoms are relieved by pain meds/drugs. med issues Pt is here to di scuss her Clonidine. Ever since she started taking it her L eye has been watering and twitching. Pt also needs her Hep A #2 today. NDiltsCMAPt states that she is having a terrible time since she no longer has the pain meds or her xanax that both were stopped by her specialist now her fibromylia is out of control f/u Pt here today fo r 3 month f/u. Pt states she does need refills on all her meds. States that she has been depressed lately d/t some family stress she has been experiencing and been losing weight. Pt states that the diabetes med he put me on is working . Pt has a very flat affect. CLIFTON Nevarez Diarrhea The patient desc ribes it as loose. It occurs daily. The problem is worse. Context: history of IBS. Symptom is aggravated by stress. She denies relieving factors. Associated symptoms include abdominal pain, anorexia, bloating, joint pain and nausea. Pertinent negatives include blood in stool, change in appetite, cramping (abdominal), decreased urine output, distention (abdominal), fecal incontinence and fever. Additional information: family history of colon cancer. belly button drainage Pt here to day with complaints of belly button drainage. Pt states it started a couple of days ago. Pt states she rubbed her hand across her belly button and it was wet and crusty. Pt states the liquid is clear but it does have an odor to it. PT states it is red in color. Pt has been cleaning with rubbing alcohol and notices no difference. Pt states her belly button is pierced but this is not cause of drainage. Pt would like an increase in the Trazodone. Pt states it did help make her sleepy but thinks it is not strong enough. PT NEEDS REFILLS ON MIRAPEX, OMEPRAZOLE, TRAZODONE, VENTOLIN & ZYRTECOMEPRAZOLE & ZYRTEC, MIRAPEX SEND TO Emmy other issues or concerns. Roxanne ROWLAND ,yolanda was reviewed and agreed with 3 MONTH F/U Pt here today fo r a 3 month follow up. Pt states everything is going well for her. Pt also wants to know results of her recent lab work. Pt states she talked with Rafael the pharmacist from [facility]. They suggested her to get off the propranolol and on another medication because it can cause problems with her COPD. Pt states she has thrush. She thinks it is from the recent injection of steroids from the ER due to a migraine. PT NEEDS REFILLS ON CELEBREX, MIRAPEX, ZYRTEC, NEBULIZER SOLUTION, CALCIUM C, VITAMIN D, OMEPRAZOLE & PROPRANOLOLOARRS completed, last filled Percocet 01/[address] Fay, & Xanax 01/[address] Bay Farooqt states she also is still having sleep issuesPt blood sugar is getting up over 200 in the evening f/u insomnia Pt here today to f/u with insomnia. Pt states it is getting better for her. Pt also wants Hep A shot. OARRS completed, filled controls from other provider. Roxanne Lewis states she is doing good diabetes Additional infor matt: Pt has been doing well and getting ready for surgery. med refills Pt here today fo r medication refills. Need [facility] ([facility] Pt wants to let you know that the medication that she was put on for sleep worked for a couple of days then it quit working. She states it needs to be stronger. She was put on Propranolol & Melatonin. OARRS completed, Roxanne Lewis states she is otherwise doing ok, sugars are doing good too med refill Pt presents to [facility] for medication refill and surgery clearance. Pt is having surgery on Sep 24 at [facility] with Dr[facility] House. [place] [address] [id number] states she is still having trouble sleeping nothing his helping but her sugars are doing ok, but her anxiety is better wit the medication from Dr Remy. Functional Status Date Functional Assessmen t No Information Instructions Date Instruction Additional Infor matt Giving encouragement to exercise Related to Body mass index [BMI] 29.0-29.9, adult Dietary management e ducation, guidance, and counseling Related to Body mass index [BMI] 29.0-29.9, adult Dietary management e ducation, guidance, and counseling Related to Body mass index [BMI] 29.0-29.9, adult Giving encouragement to exercise Related to Body mass index [BMI] 29.0-29.9, adult Giving encouragement to exercise Related to Body mass index [BMI] 29.0-29.9, adult Dietary management e ducation, guidance, and counseling Related to Body mass index [BMI] 29.0-29.9, adult Giving encouragement to exercise Related to Body mass index [BMI] 29.0-29.9, adult Dietary management e ducation, guidance, and counseling Related to Body mass index [BMI] 29.0-29.9, adult Giving encouragement to exercise Related to Body mass index [BMI] 29.0-29.9, adult Dietary management e ducation, guidance, and counseling Related to Body mass index [BMI] 29.0-29.9, adult Giving encouragement to exercise Related to Body mass index [BMI]30.0-30.9, adult Dietary management e ducation, guidance, and counseling Related to Body mass index [BMI]30.0-30.9, adult Giving encouragement to exercise Related to Body mass index [BMI]30.0-30.9, adult Dietary management e ducation, guidance, and counseling Related to Body mass index [BMI]30.0-30.9, adult Giving encouragement to exercise Related to Body mass index [BMI] 29.0-29.9, adult Dietary management e ducation, guidance, and counseling Related to Body mass index [BMI] 29.0-29.9, adult Giving encouragement to exercise Related to Body mass index [BMI] 29.0-29.9, adult Dietary management e ducation, guidance, and counseling Related to Body mass index [BMI] 29.0-29.9, adult Dietary management e ducation, guidance, and counseling Related to Body mass index [BMI] 28.0-28.9, adult Giving encouragement to exercise Related to Body mass index [BMI] 28.0-28.9, adult Giving encouragement to exercise Related to Body mass index [BMI] 28.0-28.9, adult Dietary management e ducation, guidance, and counseling Related to Body mass index [BMI] 28.0-28.9, adult Giving encouragement to exercise Related to Body mass index [BMI] 29.0-29.9, adult Dietary management e ducation, guidance, and counseling Related to Body mass index [BMI] 29.0-29.9, adult Giving encouragement to exercise Related to Body mass index [BMI] 28.0-28.9, adult Dietary management e ducation, guidance, and counseling Related to Body mass index [BMI] 28.0-28.9, adult Giving encouragement to exercise Related to Body mass index [BMI] 28.0-28.9, adult Dietary management e ducation, guidance, and counseling Related to Body mass index [BMI] 28.0-28.9, adult Dietary management e ducation, guidance, and counseling Related to Body mass index [BMI] 28.0-28.9, adult Giving encouragement to exercise Related to Body mass index [BMI] 28.0-28.9, adult Giving encouragement to exercise Related to Body mass index [BMI] 28.0-28.9, adult Dietary management e ducation, guidance, and counseling Related to Body mass index [BMI] 28.0-28.9, adult Giving encouragement to exercise Related to Body mass index [BMI] 28.0-28.9, adult Dietary management e ducation, guidance, and counseling Related to Body mass index [BMI] 28.0-28.9, adult Giving encouragement to exercise Related to Body mass index (BMI) 26.0-26.9, adult Dietary management e ducation, guidance, and counseling Related to Body mass index (BMI) 26.0-26.9, adult Dietary management e ducation, guidance, and counseling Related to Body mass index (BMI) 25.0-25.9, adult Giving encouragement to exercise Related to Body mass index (BMI) 25.0-25.9, adult Giving encouragement to exercise Related to Body mass index (BMI) 24.0-24.9, adult Dietary management e ducation, guidance, and counseling Related to Body mass index (BMI) 24.0-24.9, adult Dietary management e ducation, guidance, and counseling Related to Body mass index (BMI) 23.0-23.9, adult Giving encouragement to exercise Related to Body mass index (BMI) 23.0-23.9, adult Giving encouragement to exercise Related to Body mass index (BMI) 23.0-23.9, adult Dietary management e ducation, guidance, and counseling Related to Body mass index (BMI) 23.0-23.9, adult Dietary management e ducation, guidance, and counseling Related to Body mass index (BMI) 22.0-22.9, adult Giving encouragement to exercise Related to Body mass index (BMI) 22.0-22.9, adult Giving encouragement to exercise Related to Body mass index (BMI) 23.0-23.9, adult Dietary management e ducation, guidance, and counseling Related to Body mass index (BMI) 23.0-23.9, adult Giving encouragement to exercise Related to Body mass index (BMI) 23.0-23.9, adult Dietary management e ducation, guidance, and counseling Related to Body mass index (BMI) 23.0-23.9, adult Dietary management e ducation, guidance, and counseling Related to Body mass index (BMI) 24.0-24.9, adult Giving encouragement to exercise Related to Body mass index (BMI) 24.0-24.9, adult Giving encouragement to exercise Related to Body mass index (BMI) 24.0-24.9, adult Dietary management e ducation, guidance, and counseling Related to Body mass index (BMI) 24.0-24.9, adult Giving encouragement to exercise Related to Body mass index (BMI) 26.0-26.9, adult Dietary management e ducation, guidance, and counseling Related to Body mass index (BMI) 26.0-26.9, adult Giving encouragement to exercise Related to Body mass index (BMI) 26.0-26.9, adult Dietary management e ducation, guidance, and counseling Related to Body mass index (BMI) 26.0-26.9, adult Giving encouragement to exercise Related to Body mass index (BMI) 27.0-27.9, adult Dietary management e ducation, guidance, and counseling Related to Body mass index (BMI) 27.0-27.9, adult Dietary management e ducation, guidance, and counseling Related to Body mass index (BMI) 27.0-27.9, adult Giving encouragement to exercise Related to Body mass index (BMI) 27.0-27.9, adult Assessments Type Assessment Date assessment Colon cancer screening 22 Patient Care Teams Name Effective Dates (start - stop) Status Members No Information
--- OUTSIDE RECORDS SUMMARY | 2025-07-13 14:30 | XMS_ITS | Encounter Summary ---
Author Organization [facility] Address [address] [place] [address] Care Team Providers Care Aircraft Part Assembler Name Role Phone Robert Hathaway MD Primary Care Provider + [phone] Reason for Visit * Rehabilitation - Outpatient (Routine) - AuthorizedSpecialtyDiagnoses / ProceduresReferred By ContactReferred To ContactPhysical Therapy Diagnoses Presence of left artificial knee joint Status post total knee replacement Procedures [place] PHYSICAL THERAPY EVALUATION LOW COMPLEX 20 MINS FL OFFICE/OUTPATIENT [facility] MDM 60 MINUTES Emiliana Abad MD [address] [place] [phone] Phone: tel: fax: Gricelda Hammond PT Referral IDStatusReasonStart DateExpiration DateVisits RequestedVisits [id number]/18/20251/212 Encounter Details DateTypeDepartmentCare Team (Latest Contact Info)Cnlqhtnihti63/25/2025 2:30 PM ESTTreatment [facility] [address] [place] [address] Carlotta Melton, RAMA Localized osteoarthritis of left knee (Primary Dx); Presence of left artificial knee joint Social History Tobacco UseTypesPacks/DayYears UsedDateSmoking Tobacco: FormerCigarettes0.539.9 Started: 08/19/1985Passive Smoke Exposure: CurrentSmokeless Tobacco: Never [...] or more drinks on one occasion?Less than uudttpg2804/08/2024CommentsNoSex and Gender Information ValueDate RecordedSex Assigned at VyxanCamtmd77/06/2024 7:44 PM EDTLegal Sex Kyfimz6110/31/2022 6:42 PM EDTGender SqfbvnezNuegtm26/06/2024 7:44 PM EDTSexual OrientationNot on filedocumented as of this encounter Progress Notes * Carlotta Melton, FIRE EQUIPMENT INSPECTOR - 07/13/2025 2:30 PM EST Images from the original note were not included. Physical Therapy Treatment Visit Patient Name: Keturah Meaz Today's Date: 07/13/2025 Encounter Diagnoses Name Primary? Localized osteoarthritis of left knee Yes Presence of left artificial knee joint Visit number: 2 Timed Code Treatment: 43 minutes Total Treatment Time: 51 minutes Time In: 2:25 PM Time Out: 3:16 PM History: Pt underwent surgery for left TKA on 05/31/25. Went home same day. Later that evening pt states pain became really severe. Was initially using RW for first 2 1/2 weeks and was then able to transition off device. Was getting home health PT up until yesterday. Still has not been released to drive. Still icing and taking pain medication as needed. Precautions: [place] Subjective: left knee It's ok but its still healing pain Pain: 10/26 Objective: PT Evaluation (07/06/2025) KNEE AROM: 5 to 121 degrees in supine PROM: 3 to 125 degrees in supine MMT: quad 4/5; 3 degrees extension lag with SLR. Five Time Sit to Stand: 12.82 seconds with arms across chest Stairs: Pt able to ascend 9 inch step with left LE and min/mod UE assistance. Functional: TUG without device: 9.86 seconds and 9.26 seconds Treatment: Manual Therapy: (5 minutes )Delivered manual ther to L knee PROM in flex and ext, scar mobilizationand STM to improve mobility and decrease pain Therapeutic Exercise: (30 minutes) Guided pt through ther and flex ex per grid to improve left LE quad functional Strength, Endurance, Flexibility, ROM, HEP, Neural Mobilization, Power, and Core Stability as needed. Therapeutic Activity: (8 minutes ) Exercises to improve dynamic activities, functional tasks, functional mobility to return to prior activity level as needed. Neuromuscular re-education: Balance Training, Muscle Facilitation, Dynamic Stability, Core Stabilization, and Blood Flow Restriction Training (BFRT) as needed. Modalities: Heat, Ice, Electrical Stimulation, Ultrasound, Cervical Mechanical Traction, Lumbar Mechanical Traction, Iontophoresis, and Fluidotherapy as needed. Assessment: Visit # 2 pt with recent left TKA performed on 05-31-25. 6 weeks P.O ambulate into the clinic without use of device, mild antalgic. Mild edema, AROM of L knee demos 2 deg from full extension and 125 deg flexion reported pain at end ranges. Mild lag with SLRs, left quad strength 4/5. Pt completed open closed chain ther ex focusing on left knee strength and mobility. Encouraged pt to con tinue performing HEP, icing and elevating for discomfort Good initial response to PT interventions Outcome Measure: Lower Extremity Functional Scale (LEFS): 55/80 Rehab Diagnosis: left knee pain and weakness; difficulty walking Short Term Goal: To be met in 2 weeks Goal 1: Pt to be instructed in home exercise program. Usp Goals: To be met in 10 weeks Goal 1: Pt to report independence and compliance with home program. Goal 2: Pt to achieve 130 degrees left knee flexion to assist with functional tasks such as squatting. Goal 3: Pt to achieve full left knee extension to assist with proper gait. Goal 4: Pt to achieve 5/5 strength left knee flexion and extension to assist with functional mobility and ADL's. Goal 5: Pt to score no less than 70/80 on LEFS indicating improved QOL. Goal 6: Pt to complete 5 sit to stands with arms across chest in less than 10.0 seconds indicating improved functional strength of LE's. Pt will benefit from skilled PT for 2-3x/week from 07/06/2025 to 10/04/2025 to address the above impairments. I hereby deem this POC medically necessary. Please sign below. Date: documented in this encounter Plan of Treatment DateTypeDepartmentCare Team (Latest Contact Info)Selodembkuv47/10/2025 2:30 PM ESTTreatment [facility] [address] [facility] [address] [place] [address] Pablito Bailey, RAMA 09/29/2025 1:00 PM ESTOffice Visit [facility] [address] [facility] [address] [place] [address] Carlos Sanchez MD [address] [facility] [address] [id number] documented as of this encounter Visit Diagnoses Diagnosis Localized osteoarthritis of left knee- Primary Presence of left artificial knee joint documented in this encounter Care Teams Team MemberRelationshipSpecialtyStart DateEnd Date Robert Hathaway MD [address] [place], [facility] [place] [address] PCP - GeneralFamily Medicine11/19/24documented as of this encounter
--- OUTSIDE RECORDS SUMMARY | 2025-07-22 12:00 | XMS_ITS | Encounter Summary ---
Author Organization [facility] Address [address] [place] [address] Care Team Providers Care Pooling Operator Name Role Phone Robert Hathaway MD Primary Care Provider + [phone] Reason for Visit * Rehabilitation - Outpatient (Routine) - AuthorizedSpecialtyDiagnoses / ProceduresReferred By ContactReferred To ContactPhysical Therapy Diagnoses Presence of left artificial knee joint Status post total knee replacement Procedures [place] PHYSICAL THERAPY EVALUATION LOW COMPLEX 20 MINS DE OFFICE/OUTPATIENT [facility] MDM 60 MINUTES Emiliana Abad MD [address] [place] [phone] Phone: tel: fax: Gricelda Hammond PT Referral IDStatusReasonStart DateExpiration DateVisits RequestedVisits [id number]/18/20251/212 Encounter Details DateTypeDepartmentCare Team (Latest Contact Info)Qrsuexmvpdi79/04/2025 12:00 PM ESTTreatment [facility] [address] [place] [address] [place] [address] Carlotta Melton, RAMA Localized osteoarthritis of left [...] or more drinks on one occasion?Less than niajvwu3204/08/2024CommentsNoSex and Gender Information ValueDate RecordedSex Assigned at FtgciFukaxc27/06/2024 7:44 PM EDTLegal Sex Yylojl8910/31/2022 6:42 PM EDTGender NukslpzaXabfvg38/06/2024 7:44 PM EDTSexual OrientationNot on filedocumented as of this encounter Plan of Treatment DateTypeDepartmentCare Team (Latest Contact Info)Wsmfpqpwmlt86/10/2025 2:30 PM ESTTreatment [facility] [address] [facility] [address] [place] [address] Pablito Bailey GRAVEL ROOFER 09/29/2025 1:00 PM ESTOffice Visit [facility] [address] [place] [address] Carlos Sanchez MD [address] [facility] [address] [address] documented as of this encounter Visit Diagnoses Diagnosis Localized osteoarthritis of left knee- Primary Presence of left artificial knee joint documented in this encounter Care Teams Team MemberRelationshipSpecialtyStart DateEnd Date Robert Hathaway MD [address] [facility], [place] [address] PCP - GeneralFamily Medicine11/19/24documented as of this encounter
[2025-07-24 12:32] VITALS: BP 136/74; PULSE 72; TEMP 36.3; O2SAT 99; BMI 26.8
--- NOTE | 2025-07-24 12:38 | XR_ITS ---
[place] [id number] Patient Name: ROCK HERRERA MRN: [id number] date: 1970 Sex: F Assigned Patient Location: ER Current Patient Location: ED.MAIN Accession/Order Number: [id number] Exam Date: 07/24/2025 12:50 Report Date: 07/24/2025 13:39 At the request of: TUTU NOLASCO MD Procedure: XR shoulder RT min 2V 3 views of the right shoulder CLINICAL HISTORY: Atraumatic pain, posterior COMPARISON: 12/20/2024 FINDINGS: Negative for acute osseous abnormality.. Mild degenerative changes of the acromioclavicular joint and glenohumeral joint. Right lung apex appears clear. IMPRESSION: No acute bony process. Mild degenerative changes. Impression dictated by: Jose J Chavira M.D. 07/24/2025 1:39 PM Dictation Location: [place] [address] Electronically authenticated by: [id number] Y Date: 07/24/2025 13:39
--- NOTE | 2025-07-24 12:39 | ECG_ITS ---
[facility] Test Date: 2025-07-24 Pat Name: ROCK HERRERA Department: Room: - Gender: Female Payable Manager: : 1970 Requested By: [id number] Order Number: [id number] Reading MD: FLORES AVILA M.D. Measurements Intervals [place] Rate: 67 P: 30 TX: 116 QRS: 57 QRSD: 84 T: 90 QT: 400 QTc: 415 Interpretive Statements 1100 Sinus rhythm 2210 Short TX interval [address] depression 4164 Twave abnormality, possible anterior ischemia 9150 abnormal ECG Compared to ECG 02/12/2025 18:16:59 Short TX interval now present Possible ischemia still present Electronically Signed On 07-24-2025 15:08:32 EST by FLORES AVILA M.D.
--- NOTE | 2025-07-24 12:39 | ED.GENADUL1 ---
HPI HPI - General Adult General Chief complaint: Extremity Problem, Nontraumatic Stated complaint: R SHOULDER PAIN Time Seen by Provider: 07/24/25 12:34 Source: patient Mode of arrival: walk-in History of Present Illness HPI narrative: 54-year-old female presented to the emergency department for pain in her right shoulder. It is posterior and started last night while she was sitting. There was no injury. She states a few years ago she broke her shoulder in 4 places but did not need to have surgery. It hurts more to move it. No chest pain or shortness of breath. Related Data Home Medications ?Medication ?Instructions ?Recorded ?Confirmed alendronate 70 mg tablet 70 mg PO QWEEK 11/05/23 02/09/25 alprazolam 1 mg tablet 1 mg PO TID PRN anxiety 11/05/23 02/09/25 aripiprazole 15 mg tablet 15 mg PO DAILY 11/05/23 02/09/25 atorvastatin 80 mg tablet 80 mg PO DAILY 11/05/23 02/09/25 calcium carbonate 600 mg PO BID 11/05/23 02/09/25 carvedilol 25 mg tablet 25 mg PO BID 11/05/23 02/09/25 cetirizine 10 mg tablet 10 mg PO DAILY 11/05/23 02/09/25 albuterol sulfate 90 mcg/actuation inhalation 02/09/25 aerosol inhaler blood sugar diagnostic (OneTouch 02/09/25 02/09/25 Ultra Test strips) diltiazem HCl 120 mg mg PO 02/09/25 capsule,extended release 24 hr ergocalciferol (vitamin D2) 1,250 02/09/25 mcg (50,000 unit) capsule furosemide 20 mg tablet mg 02/09/25 lidocaine 5 % topical ointment 02/09/25 loperamide 2 mg capsule mg 02/09/25 metformin 500 mg tablet mg 02/09/25 mirabegron 50 mg tablet,extended mg PO 02/09/25 release 24 hr (Myrbetriq) montelukast 10 mg tablet mg 02/09/25 nabumetone 500 mg tablet mg 02/09/25 omeprazole 40 mg capsule,delayed mg 02/09/25 release ondansetron 4 mg disintegrating mg 02/09/25 tablet oxycodone-acetaminophen 10 mg-325 tab 02/09/25 mg tablet solifenacin 10 mg tablet mg PO 02/09/25 thiamine mononitrate (vit B1) 100 mg 02/09/25 mg tablet (Vitamin B-1 (mononitrate)) Previous Rx's ?Medication ?Instructions ?Recorded ondansetron 4 mg disintegrating 4 mg PO Q6H PRN nausea and 02/10/25 tablet vomiting #10 tabs tramadol 50 mg tablet 50 mg PO Q12H PRN pain 3 days #6 03/09/25 tabs orphenadrine citrate 100 mg 100 mg PO Q12H PRN pain #14 tabs 05/03/25 tablet,extended release tramadol 50 mg tablet 50 mg PO Q8H PRN pain 3 days #9 07/24/25 tabs Allergies Allergy/AdvReac Type Severity Reaction Status Date / Time Iodinated Contrast Media Allergy Severe shortness Verified 07/24/25 12:32 of breath adhesive tape Allergy Blister Verified 07/24/25 12:32 amoxicillin Allergy Anaphylaxis Verified 07/24/25 12:32 atomoxetine (From Strattera) Allergy Agitated Verified 07/24/25 12:32 bupropion (From Wellbutrin) Allergy Hives Verified 07/24/25 12:32 dexamethasone Allergy Hives Verified 07/24/25 12:32 duloxetine (From Cymbalta) Allergy Hives Verified 06/15/25 19:27 fluticasone (From Advair Allergy Anaphylaxis Verified 07/24/25 12:32 Diskus) gabapentin Allergy Anaphylaxis Verified 07/24/25 12:32 methadone Allergy Anaphylaxis Verified 07/24/25 12:32 milnacipran (From Savella) Allergy Anaphylaxis Verified 07/24/25 12:32 nitrofurantoin (From Allergy Anaphylaxis Verified 07/24/25 12:32 Macrobid) paroxetine (From Paxil) Allergy Confusion Verified 07/24/25 12:32 Penicillins Allergy Altered Verified 07/24/25 12:32 Sense of Taste pregabalin (From Lyrica) Allergy Anxiety Verified 07/24/25 12:32 ropinirole (From Requip) Allergy Hives Verified 07/24/25 12:32 salmeterol (From Advair Allergy Hives Verified 07/24/25 12:32 Diskus) topiramate (From Topamax) Allergy Hives Verified 07/24/25 12:32 ziprasidone Allergy Hives Verified 07/24/25 12:32 acetaminophen (From [place]) AdvReac itch Verified 07/24/25 12:32 hydrocodone (From [place]) AdvReac itch Verified 07/24/25 12:32 ketorolac (From Toradol) AdvReac Abdominal Verified 07/24/25 13:36 Pain fish Allergy Anaphylaxis Uncoded 07/24/25 12:32 Opioid HPI Opioid Management Most Recent Opioid Data: Last Pain Scale 10 Today, 12:32 Last MAR Pain Assessment Today, 13:38 Ur Phencyclidine Scrn, (NEGATIVE) Negative 09/20/23, 08:52 Review of Systems ROS Narrative A ten point review of systems is negative except as noted above. PFSH [facility] Social History Smoking status: Never smoker Little interest or pleasure in doing things: not at all Feeling down, depressed, or hopeless: not at all Exam Narrative Exam Narrative: Nurses note and vital signs reviewed General:The patient appears well and in no apparent distress.Patient is resting comfortably on cart. Skin:Warm, dry, no pallor noted.There is no rash noted. Head:Normocephalic, atraumatic Eye: Normal conjunctiva, no drainage Ears, Nose, Mouth, and Throat: oral mucosa is moist. Nares patent. Cardiovascular:Regular Rate and Rhythm Respiratory:Patient is in no distress, no accessory muscle use, lungs are clear to auscultation, no wheezing, rales or rhonchi Back:non-tender, no bruise or rash GI: Soft and nontender Musculoskeletal: The right shoulder is examined. There is no bruise rash or deformity. Range of motion causes discomfort. Radial pulse 2+. Elbow and wrist are nontender. Neurological:A&O, normal speech Psychiatric:Cooperative Constitutional Vital Signs, click to edit/add: Last Vital Signs Temp 97.3 F L 07/24/25 12:32 Pulse 72 07/24/25 12:32 Resp 16 07/24/25 12:32 BP 136/74 07/24/25 12:32 Pulse Ox 99 07/24/25 12:32 O2 Del Method Room Air 07/24/25 12:32 Course Vital Signs Vital signs: Vital Signs Temperature 97.3 F L 07/24/25 12:32 Pulse Rate 72 07/24/25 12:32 Respiratory Rate 16 07/24/25 12:32 Blood Pressure 136/74 07/24/25 12:32 Pulse Oximetry 99 07/24/25 12:32 Oxygen Delivery Method Room Air 07/24/25 12:32 Temperature 97.3 F L 07/24/25 12:32 Pulse Rate 72 07/24/25 12:32 Respiratory Rate 16 07/24/25 12:32 Blood Pressure 136/74 07/24/25 12:32 Pulse Oximetry 99 07/24/25 12:32 Oxygen Delivery Method Room Air 07/24/25 12:32 Medical Decision Making MDM Narrative Medical decision making narrative: X-ray shows no acute findings. She was placed in a sling, application checked by me and found to be appropriate, she is neurovascular intact. She was prescribed 9 Ultram tablets and has an appointment with her doctor in 3 days. Treatment diagnosis and follow-up were discussed with the patient. Differential Diagnosis Differential Diagnosis: Shoulder sprain, shoulder strain, rotator cuff injury ECG Data Attestation: I personally reviewed and interpreted this ECG as follows: (EKG on my interpretation shows sinus rhythm with rate of 67 and no acute changes.) Discharge Plan Discharge Chief Complaint: Extremity Problem, Nontraumatic Clinical Impression: Pain in right shoulder Patient Disposition: Home, Self-Care Time of Disposition Decision: 14:30 Condition: Good Mode of Transportation: Private Vehicle Prescriptions / Home Meds: New tramadol 50 mg tablet 50 mg PO Q8H PRN (Reason: pain) 3 Days Qty: 9 0RF No Action metformin 500 mg tablet loperamide 2 mg capsule (DME) OneTouch Ultra Test Strip MISCELLANEOUS omeprazole 40 mg capsule,delayed release(DR/EC) oxycodone-acetaminophen 10-325 mg tablet diltiazem HCl 120 mg capsule,extended release 24hr PO montelukast 10 mg tablet furosemide 20 mg tablet ergocalciferol (vitamin D2) 1,250 mcg (50,000 unit) capsule albuterol sulfate 90 mcg/actuation HFA aerosol inhaler INHALATION ondansetron 4 mg tablet,disintegrating nabumetone 500 mg tablet solifenacin 10 mg tablet PO thiamine mononitrate (vit B1) [Vitamin B-1 (mononitrate)] 100 mg tablet lidocaine 5 % ointment mirabegron [Myrbetriq] 50 mg tablet extended release 24 hr PO ondansetron 4 mg tablet,disintegrating 4 mg PO Q6H PRN (Reason: nausea and vomiting) Qty: 10 0RF tramadol 50 mg tablet 50 mg PO Q12H PRN (Reason: pain) 3 Days Qty: 6 0RF orphenadrine citrate 100 mg tablet extended release 100 mg PO Q12H PRN (Reason: pain) Qty: 14 0RF alendronate 70 mg tablet 70 mg PO QWEEK alprazolam 1 mg tablet 1 mg PO TID PRN (Reason: anxiety) aripiprazole 15 mg tablet 15 mg PO DAILY atorvastatin 80 mg tablet 80 mg PO DAILY calcium carbonate 600 mg calcium (1,500 mg) tablet 600 mg PO BID carvedilol 25 mg tablet 25 mg PO BID cetirizine 10 mg tablet 10 mg PO DAILY Print Language: Czech Instructions: Shoulder Pain (ED) Additional Instructions: Follow-up with your doctor at your appointment in 3 days. Referrals: IVON GIRON [Primary Care Provider, Family Practice] - 1 week
[2025-07-24 12:47] VITALS: PULSE 72
--- OUTSIDE RECORDS SUMMARY | 2025-07-24 12:52 | XMS_ITS | Encounter Summary ---
Author Organization [facility] Address [address] [place] [address] Care Team Providers Care Deputy Director Of Public Works Name Role Phone Robert Hathaway MD Primary Care Provider [phone] Encounter Details DateTypeDepartmentCare Team (Latest Contact Info)Cmiblbrtpmq09/25/2025Travel Social History Tobacco UseTypesPacks/DayYears UsedDateSmoking Tobacco: FormerCigarettes0.539.9 [...] or more drinks on one occasion?Less than kzcixzy2904/08/2024CommentsNoSex and Gender Information ValueDate RecordedSex Assigned at WdsizMeiocj96/06/2024 7:44 PM EDTLegal Sex Hzmxok1010/31/2022 6:42 PM EDTGender LlxmxbalAhmgii35/06/2024 7:44 PM EDTSexual OrientationNot on filedocumented as of this encounter Plan of Treatment DateTypeDepartmentCare Team (Latest Contact Info)Tvmxnpezeko23/10/2025 2:30 PM ESTTreatment [facility] [address] [place] [address] JezPablito groves, ELECTROMEDICAL SERVICE ENGINEER 09/29/2025 1:00 PM ESTOffice Visit [facility] [address] [facility] [address] [place] [address] Carlos Sanchez MD [address] [facility] [address] [address] documented as of this encounter Visit Diagnoses Not on filedocumented in this encounter Care Teams Team MemberRelationshipSpecialtyStart DateEnd Date Robret Hathaway MD [address] [place] [address] PCP - GeneralFamily Medicine11/19/24documented as of this encounter
--- OUTSIDE RECORDS SUMMARY | 2025-07-24 12:52 | XMS_ITS | Encounter Summary ---
[facility] Organization [facility] tem Address [id number] [address] [place] [address] Care Team Providers Care Program Admin Name Role Phone Robert Hathaway Primary Care Provider + [phone] Reason for Visit * ReasonOnset DateCommentsMed Wxmtgi7707/13/2025 Encounter Details DateTypeDepartmentCare Team (Latest Contact Info)Znddbdwzdtt99/25/2025Refill [facility] Internal [facility] - Family Medicine [address] [place] [phone] Simi Petty CMA Complex tear of medial meniscus of left knee, sequela Social History Tobacco UseTypesPacks/DayYears UsedDateSmoking Tobacco: FormerCigarettes0.836.5 04/15/1988 - 02/17/2025Passive Smoke Exposure: CurrentSmokeless Tobacco: Never Alcohol UseStandard Drinks/WeekCommentsNot Currently0 (1 standard drink = 0.6 oz pure alcohol)[facility] UtilitiesAnswerDate RecordedIn the past 12 months has the [employer], gas, oil, or water [employer] threatened to shut off services in your home?No07/08/2023Social Connection and Isolation PanelAnswerDate RecordedIn a typical week, how many times do you talk on the phone with family, friends, or neighbors?More than three times a week01/24/2023How often do you get together with friends or relatives?More than three times a week01/24/2023How often do you attend restorationist or mandaeism services?Never01/24/2023o you belong to any clubs or organizations such as restorationist groups, unions, fraternal or athletic groups, or school groups?No01/24/2023How often do you attend meetings of the clubs or organizations you belong to?Never01/24/2023re you , , , , never , or living with a partner?Cxnlvxene61/08/2023UDIT-C AnswerDate RecordedQ1: How often do you have [...] housing, medical care, and heating?Patient /01/2025PHQ-2AnswerDate RecordedTotal Hfqgb691Finhuntsman [facility] [place] of Occupational Health - Occupational Stress QuestionnaireAnswerDate RecordedDo you feel stress - tense, restless, nervous, or anxious, or unable to sleep at night because yourmind is troubled all the time - these days?To some wdaiyk6801/24/2023Exercise Vital Sign AnswerDate RecordedOn average, how many days per week do you engage in moderate to strenuous exercise (like a brisk walk)?4 days01/24/2023On average, how many minutes do you engage in exercise at this level?10 min01/24/2023RAPARE - TransportationAnswerDate RecordedIn the past 12 months, has lack of transportation kept you from medical appointments or from getting medications? Patient zmzicwye92/01/2025In the past 12 months, has lack of transportation kept you from meetings, work, or from getting things needed for daily living?Patient kehscnhs19/01/2025Housing InstabilityAnswerDate RecordedAre you worried or concerned that in the next two months you may not have stable housing that you own, rent or stay in as a part of a household?Patient Hygtzwcd21/01/2025 ChildcareAnswerDate RecordedDo problems getting child development associate teacher make it difficult for you to work or study?No01/24/2023EmploymentAnswerDate RecordedDo you need help finding a local career center and/or a training program?No01/24/2023Hunger ScreeningAnswerDate RecordedWithin the past 12 months we worried whether our food would run out before we got money to buy more.Patient Bufalgjr02/30/2025 Within the past 12 months the food we bought just didn't last and we didn't have money to get more.Patient Fcflcflg36/30/2025Purpose - LifeAnswerDate RecordedI have a purpose and direction in my life.Strongly Agree01/24/2023Comments NoSex and Gender InformationValueDate RecordedSex Assigned at BirthNot on file Legal IciJsnlou18/06/2015 11:58 AM EDTGender IdentityNot on fileSexual OrientationNot on filedocumented as of this encounter Miscellaneous Notes * Telephone Encounter - Simi Petty CMA - 07/13/2025 11:43 AM EST Patient would like some more of the medication so she can get through PT * Telephone Encounter - Robert Hathaway DO - 07/13/2025 11:43 AM EST I gave her a few extra weeks of pain medication after the surgeon stopped giving it to her. This isfor postop pain and anymore pain medication needs to come from the surgeon. They did not think she need it anymore so I gave her a weaning dose. documented in this encounter Plan of Treatment DateTypeDepartmentCare Team (Latest Contact Info)Qzmvgalddxd83/09/2025 2:00 PM ESTOffice Visit [facility] [address] [place] [address] Robert Hathaway DO [address], [facility] [place] [place] [address] 08/05/2025 3:45 PM ESTAppointment [facility] [address] [facility] [place] [phone] 09/16/2025 1:00 PM ESTOffice Visit [facility] [address] [place] [address] Robert Hathaway DO [address], [place] [address] documented as of this encounter Visit Diagnoses Diagnosis Complex tear of medial meniscus of left knee, sequela documented in this encounter Additional Health Concerns AssessmentNoted TimePHQ-9 Depression Total Score: 1:22 PM EDTA Body Mass Index follow-up plan has been documented for the jckkivl4607/10/2023 3:34 PM ESTdocumented as of this encounter Care Teams Team MemberRelationshipSpecialtyStart DateEnd Date Robert Hathaway DO [address] [facility] [place] [address] PCP - GeneralFamily Medicine05/10/22documented as of this encounter
--- OUTSIDE RECORDS SUMMARY | 2025-07-24 12:52 | XMS_ITS | Encounter Summary ---
Author Organization [facility] Address [address] [place] [address] Care Team Providers Care Business Line Manager Name Role Phone Robert Hathaway MD Primary Care Provider [phone] Encounter Details DateTypeDepartmentCare Team (Latest Contact Info)Iaarmqxuyur30/25/2025amboo flowsheet [facility] [address] [place] [phone] Carlotta Melton, RAMA Social History Tobacco UseTypesPacks/DayYears UsedDateSmoking Tobacco: FormerCigarettes0.539.9 [...] or more drinks on one occasion?Less than /21/2024CommentsNoSex and Gender Information ValueDate RecordedSex Assigned at ZzdsvTffvag09/06/2024 7:44 PM EDTLegal Sex Rowzvr3810/31/2022 6:42 PM EDTGender BqkixvlkTtjgyg70/06/2024 7:44 PM EDTSexual OrientationNot on filedocumented as of this encounter Plan of Treatment DateTypeDepartmentCare Team (Latest Contact Info)Wpnpyfgzpbi20/10/2025 2:30 PM ESTTreatment [facility] [address] [facility] [address] [place] [phone] Pablito Bailey, [facility] 09/29/2025 1:00 PM ESTOffice Visit [facility] [address] [facility] [address] [place] [address] Carlos Sanchez MD [address] [facility] [address] [id number] documented as of this encounter Visit Diagnoses Not on filedocumented in this encounter Care Teams Team MemberRelationshipSpecialtyStart DateEnd Date Robert Hathaway MD [address] [facility], [place] [address] PCP - GeneralFamily Medicine11/19/24documented as of this encounter
--- OUTSIDE RECORDS SUMMARY | 2025-07-24 12:52 | XMS_ITS | Clinical Summary ---
Author Organization [facility] Address [address] [place] [address] Phone Care Team Providers Care Filenet P8 Developer Name Role Phone Unavailable Primary Care Provider Unavailabl e Social History Tobacco UseTypesPacks/DayYears UsedDateSmoking Tobacco: Never Assessed CommentsUnknownSex and Gender InformationValueDate RecordedSex Assigned at Not on fileLegal CqxNpldkp57/25/2022 8:35 PM ESTGender IdentityNot on fileSexual OrientationNot on file Plan of Treatment Health MaintenanceDue DateLast DoneCommentsCT Cvcpgatplffu1970Colonoscopy 1970Colorectal Cancer Wmwmbrywv1970FIT-DNA (Cologuard)1970FIT 1970HIV Iobehaxfd1970Lipid Panel1970 7158Ztssqiykcsswy1970 Yearly Adult Tmtgrbri1970MMR Vaccines (1 of 1 - Standard series)1971 Hepatitis C Ocysydlua64/10/1988Hepatitis B Vaccines (1 of 3 - 19+ 3-dose series) 1989Cervical Cancer Opxogtqre40/10/1991HPV/Qwgoui5407/28/1991Pap Smear 1991DTaP/Tdap/Td Vaccines (1 - Tdap)07/28/19920836Heelvsfdb31/10/2010 Pneumococcal Vaccine (1 of 1 - PCV)2020Zoster [...]
--- OUTSIDE RECORDS SUMMARY | 2025-07-24 12:52 | XMS_ITS | Clinical Summary ---
Author Organization [employer] s tem Address [id number] [address] [place] [address] Care Team Providers Care Manager Medical Affairs Name Role Phone Robert Hathaway Primary Care Provider + [phone] Allergies Active AllergyReactionsCriticalityNoted DateCommentsAdhesive Tape-SiliconesOther (See Comments),XtcbIil6011/02/2011 rash Other Reaction(s): other Other Reaction(s): Other rash Other Reaction(s): other Other Reaction(s): Other rash Other Reaction(s): Other (See Comments) rash??Other Reaction(s): other ??Other Reaction(s): Other ??rash AmitriptylineAbnormal Umuafejv05/26/2017 hallucinate CipoeizftdxHcahnqms72/26/2017Amoxicillin-Pot ClavulanateGI DisturbanceLow 03/13/2017Atomoxetine HclGI Disturbance,RpiwoqylbnohOaqdul59/26/2017 palpitations Sulfamethoxazole-TrimethoprimHives,Gfrubseh11/12/2019Bupropion HclGI Disturbance ,GsamfhxpoijfWtvsqc23/26/2017 palpitations MfmahjcCxygiZrzx41/26/6637Hgssxebmtb54/12/4237Pgxgzljygj16/12/2019Dexamethasone (Pf)07/30/2019DoxycyclineGI Disturbance,OpbcyovoggubYewyuo33/26/2017 palpitations Eicosapentaenoic Acid03/13/2017Fish Containing JpkbbolcFwkzPdq85/16/2012Fish EkfclfuHqnfuTjel56/26/2017Fluticasone Propion-SalmeterolItching,PalpitationsLow 03/13/2017IbuprofenGI IqcaemyuqtlEou15/26/2017Iodinated Contrast Media WvcwrlmvodhWzgg46/19/2024 Patient started to have SOB and felt faint Eyswejunp75/26/2017 Other reaction(s): Other: See Comments Abdominal pain MethadoneGI GjtnazvadduRwt66/26/2017 Other reaction(s): Vomiting MethocarbamolOther (See Comments)11/12/2022MilnacipranOther (See Comments) 05/25/20227610Prgybmptp01/12/4039UnptjcvpydyoEnvots23/16/2393Sxfbxhzwiv68/12/2019 Nitrofurantoin Monohyd/M-CrystOther (See Comments)05/25/2022xcarbazepineGI Disturbance,OvcuzqcafwfhBkvhkt62/26/2017 palpitations GwuphhezobOxwld43/22/2023PenicillinOther (See Comments)08/06/2014PenicillinsGI Disturbance,Hives,Other (See Comments),Qyffmazi66/19/2014PregabalinOther (See Comments),RlsbmisehkmjZzv35/26/2017 hallucinate Urfiorsglc47/12/2019Shellfish Containing ProductsRash,GjyyxPmzj98/16/2012 Shellfish Amwozwe8007/30/2019Sodium Chloride-Aloe Vera08/28/2023 Facial numbness/tongue numbness SulfamethoxazoleOther (See Comments)03/22/2022TopiramateGI Disturbance,Other (See Comments)Low03/13/2017Valproic Acid07/30/2019 Other Reaction(s): Alopecia, Unknown VerapamilGI MkyjwzpcsyaCaw42/26/2017Verapamil Hcl07/05/2022Ziprasidone Palpitations,Other (See Comments)Low08/06/2014Ziprasidone HclPalpitationsMedium 03/13/2017 palpitations Medications MedicationSigDispense QuantityRefillsLast FilledStart DateEnd DateStatus albuterol (PROVENTIL HFA;VENTOLIN HFA) 90 mcg/actuation inhaler Inhale 2 puffs every 6 (six) hours as needed for wheezing.Active fremanezumab-vfrm (AJOVY AUTOINJECTOR) 225 mg/1.5 mL 1.5 mL (225 mg total) every 30 (thirty) days.10/25/2021ctive rimegepant (NURTEC ODT) 75 mg tablet,disintegrating Active alendronate (FOSAMAX) 70 mg tablet 10/08/2022ctive calcium carbonate (OS-LARRY) 600 mg (1,500 mg) tablet 11/06/2022ctive diphenhydrAMINE (BenadryL) 25 mg capsule Indications:Rash in adultTake 1 capsule (25 mg total) by mouth every 6 (six) hours as needed for itching or allergies. MAY CAUSE DROWSINESS. HOLD hydroxyzine while taking this medication. 15 capsule 01/02/2023ctive nebulizers [facility] Indications:Chronic obstructive pulmonary disease, unspecified COPD type ([facility])1 Unit by miscellaneous route every 6 (six) months. 1 each ctive nebulizer accessories [facility] Indications:Chronic obstructive pulmonary disease, unspecified COPD type ([facility])1 Tube by inhal. via small vol.nebulizer route every 6 (six) months. 1 each ctive qfffsawo-lqou-AP-calcium &mins (THERAGRAN-M) 9 mg iron-400 mcg tablet Take 1 tablet by mouth in the morning.Active solifenacin (VESICARE) 10 mg tablet Take 1 tablet (10 mg total) by mouth in the morning.01/28/2024ctive thiamine mononitrate, vit B1, (VITAMIN B-1, MONONITRATE,) 100 mg tablet Take 1 tablet (100 mg total) by mouth in the morning and 1 tablet (100 mg total) before bedtime.04/30/2024ctive EPINEPHrine (EPIPEN) 0.3 mg/0.3 mL auto-injector Indications:Allergic reaction, initial encounterInject 0.3 mL (0.3 mg total) into the appropriate muscle as needed (As needed for allergic reaction) for up to 1 dose. 1 each 07/07/2024ctive nystatin (MYCOSTATIN) cream APPLY TO AFFECTED AREA VIA TOPICAL ROUTE TWICE A DAY 15 g tive lidocaine (XYLOCAINE) 5 % ointment 12/07/2024tive furosemide (LASIX) 20 mg tablet TAKE ONE TABLET BY MOUTH ONCE DAILY 30 tablet 5Active oxygen Inhale continuously.Active atorvastatin (LIPITOR) 80 mg tablet TAKE ONE TABLET BY MOUTH DAILY 30 tablet 1105/30/2025Active naloxone (NARCAN) 4 mg/actuation spray,non-aerosol nasal spray Administer 1 spray (4 mg total) into alternating nostrils as needed for opioid reversal. 2 each 5Active blood sugar diagnostic (TRUE METRIX GLUCOSE TEST STRIP) strip Indications:Diabetes mellitus without complication ([facility])1 strip by other route as needed for high blood sugar. 100 strip 5Active blood-glucose meter (TRUE METRIX GLUCOSE METER) [facility] Indications:Diabetes mellitus without complication ([facility]1 Unit by miscellaneous route in the morning. 1 each 5Active lancets [facility] Indications:Diabetes mellitus without complication ([facility])1 Lancet by miscellaneous route in the morning. 100 each 5Active TRUEPLUS LANCETS 33 gauge [facility] 5Active ARIPiprazole (ABILIFY) 15 mg tablet TAKE [...] BY MOUTH ONCE WEEKLY 5 capsule 5Active metFORMIN (GLUCOPHAGE) 500 mg tablet Indications:Type 2 diabetes mellitus with diabetic mononeuropathy, without long- term current use of insulin ([facility])TAKE 1 TABLET (500 MG TOTAL) BY MOUTH DAILY WITH BREAKFAST. 30 tablet 5Active cetirizine (ZyrTEC) 10 mg tablet TAKE ONE TABLET BY MOUTH ONCE DAILY 30 tablet 5Active carvediloL (COREG) 12.5 mg tablet Take 1 tablet (12.5 mg total) by mouth in the morning and 1 tablet (12.5 mg total) in the evening. Take with meals.Active meclizine (ANTIVERT) 25 mg tablet Take 1 tablet (25 mg total) by mouth 3 (three) times a day as needed for dizziness. 20 tablet 5Active alcohol swabs (ALCOHOL PADS) pads, medicated Indications:Type 2 diabetes mellitus with hyperglycemia, without long-term current use of insulin ([facility])Apply 1 Pad topically in the morning. 40 each 5Active nebulizers [facility] Indications:Chronic obstructive pulmonary disease, unspecified COPD type ([facility])1 Unit by miscellaneous route every 3 (three) months. 1 each 5Active loperamide (IMODIUM) 2 mg capsule TAKE 2 CAPSULES BY MOUTH AFTER 1ST LOOSE STOOL AND 1 CAPSULE AFTER EACH NEXT BOWEL MOVEMENT; DO NOTEXCEED 16MG (8 CAPSULES) IN 24 HOURS 20 capsule 5Active dilTIAZem CD (CARDIZEM CD) 120 mg 24 hr capsule TAKE ONE CAPSULE BY MOUTH ONCE DAILY 30 capsule 5Active ALPRAZolam (XANAX) 1 mg tablet Indications:AnxietyTake 1 tablet (1 mg total) by mouth 3 (three) times a day as needed for anxiety. 90 tablet 5Active traMADoL (ULTRAM) 50 mg tablet Indications:Complex tear of medial meniscus of left knee, sequela1 TID x 7 days then 1 BID x 7 days then 1 daily x 7 days then stop 42 tablet 5Active ammonium lactate (LAC-HYDRIN) 12 % lotion Apply topically in the morning and before bedtime. 400 g 5Active ondansetron ODT (ZOFRAN ODT) 4 mg disintegrating tablet Dissolve 1 tablet (4 mg total) on tongue every 8 (eight) hours as needed for nausea or vomiting. 10 tablet 5Active ammonium lactate (LAC-HYDRIN) 12 % lotion Apply topically 2 (two) times a day. 400 g Discontinued(Reorder) ondansetron ODT (ZOFRAN ODT) 4 mg disintegrating tablet Dissolve 1 tablet (4 mg total) on tongue every 8 (eight) hours as needed for nausea or vomiting. 10 tablet Discontinued(Reorder) Active Problems ProblemNoted DateDiagnosed DateAftercare following left knee joint replacement zdgnzmr5506/17/20255118Wcgftrfwjivdx75/09/2025Peripheral arterial vagargq1910/26/2024 Chronic pain of left knee05/20/2024heumatoid factor /30/2024 Esophageal idkpmsmgcc44/12/8474Thbgifjteti50/21/2024History of sinus surgery 04/08/2024History of carpal tunnel mslcuov6604/08/2024iastolic dysfunction 04/08/2024Lesion of left ulnar nerve03/10/2024Enthesopathy of elbow03/10/2024 Carpal tunnel ypskzhcx68/23/2024enign paroxysmal positional vertigo due to bilateral vestibular dmymrlsu28/03/2024egenerative cervical disc01/07/2024 Hallux valgus of right foot10/07/2023Gross uuvbulaba44/15/2024OAB (overactive bladder)10/03/2023Fecal yarltutyjdyi68/15/2024bnormality of gait and mobility 07/01/2023Lumbar degenerative disc kpagvzb5906/24/2023ubital tunnel syndrome, nqkbxyorv06/02/2023Lumbosacral radiculopathy at L506/20/2023ervical paraspinal muscle spasm05/02/2023rug-induced bzptskpxybiz13/14/2023Lumbar radiculopathy 05/02/2023Restless leg lenndrtj52/14/2023Lumbar strain, mbwocid9004/04/2023Sacral htconxetd15/17/9655Qdhkcfrl49/10/2023ilateral low back pain with sciatica 02/25/2023ompression injury of nerve02/25/2023 Overview (06/06/2023): pinched nerve in back also Gastric foreign body02/25/2023olon polyp02/25/2023ontracture, right ankle 02/25/2023eformity of ppmnvjodse73/10/6378Yjobujenodw34/10/2023Incomplete emptying of rkhwbqq9302/25/2023Increased frequency of qrxnokhla32/10/2023 Osteopenia of hip02/25/2023hange in bowel uyydoq0202/25/20236530Dqhhuizopn03/08/2023 Downey's neuroma of both feet11/12/2022Hammer toes of both feet11/12/2022lantar fasciitis, ttnxgcaxr72/27/0878Wwutnuskbyoj45/27/7404Upaijjtxzzai66/27/2023 Feeling of incomplete bladder waamkary03astric erosions Loose lmvawk50ersonality disorder OSA (obstructive sleep apnea) Overview (11/12/2022): does not use cpap any longerpt uses CPAP Tarsal tunnel dwhuynip28Tertiary contraction of esophagus TMJ odahznhftm28Esophageal spasm11/12/2022 11/12/20226721Rmtbkipht95ERD (gastroesophageal reflux disease) Mixed incontinence urge and eovyhc11 Encounter for medication trlzuihqkg85/06/2023ltered bowel uwhbdgfo27/03/2022 Diabetic peripheral cevdrtvkfu55/03/2022ifficulty cwuifie1605/21/2022Urethral dhvwayzxr53/03/2022tress incontinence of urine05/21/20226057Dvbfvheq91/03/2022 Peripheral venous xkuveyvlexcfp37/03/2022steochondritis dissecans of right ankle05/21/20223080Affgukwrzxmg36/03/2022History of renal vyqpuyb0905/21/2022 Esophageal /03/2022Gastric osxamd1305/21/20224662Xhltohjqj47/03/2022 Diabetes mellitus without jedhteevoeis78/22/2022Irritable bowel syndrome with mbcblnuc52/22/2022Essential tkghpursvofh69/22/2022ttention deficit hyperactivity ptiqtbtr40/17/2022orderline personality ejxtqrqx49/17/2022Vertigo 10/05/2021osttraumatic stress woesbwzt73/17/2022bsessive-compulsive disorder 10/05/20213501Chpczkhsih23/17/2022llergic nqpekkyx06/27/2022arotid gland gewtcktbobs93/28/5118Iqgncvnqja18/28/2021ipolar rxtsefeg49/25/2020Chronic back pain04/12/20204986Orttydphnjpk16/25/9970Tmjdevjykdmapc34/25/2020Lumbar spondylosis 01/26/2020Disorder of ywjely5201/26/2020Lumbosacral spondylosis without myelopathy 09/08/2019 Overview (07/01/2023): Added automatically from request for surgery [id number] History of anxiety jmuxxbrn84/13/2015History of prqsdasfofxo23/13/2015History of bipolar rhtrdexn41/13/2015History of COPD02/28/2015History of gastroesophageal reflux (GERD)02/28/2015Left shoulder pain02/28/2015Chronic obstructive lung kwuohbd6510/23/2013Generalized anxiety tykradzf39/07/2014Mitral valve prolapse 10/23/20136764Awtnqodsrcyarh93/07/2014Generalized szdisophdkfxut75/07/2014 Gastroesophageal reflux zxvsfsj6010/23/2013Myofascial pain uqrmmrya15/07/2014 Kidney npwqqo8310/23/2013icipital lhhskyzasrabg47/06/2014Disorder of bursae of shoulder adcjmq3610/22/2013Degenerative joint disease of shoulder kouulo7010/22/2013 Amunijxi49/20/3012Ziohdwyc47/02/2012Leg pain, ulopdjzgw74/02/2012Neck pain 09/20/20110623Uxkretq15/13/2011Low back pain05/01/2011Pain in limb05/01/2011 Resolved Problems ProblemNoted DateDiagnosed DateResolved DateNicotine dependence, cigarettes, sxljsivsznjqe50/21/202407/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 Chronic fxbujtqtqb58/27/202204/hronic, continuous use of opioids History of bzpkhtgvat83Depressive disorder Encounters DateTypeDepartmentCare NjqyVjiobzzlilr51/05/2025Refill [facility] Medicine [address] [place] [address] Robert Hathaway, DO 07/13/2025Refill [facility] [address] [place] [address] Simi Petty CMA Complex tear of medial meniscus of left knee, diawpti8007/06/2025Refill [facility] [address] [place] [address] Robert Hathaway, DO 06/23/2025Orders Only [facility] [address] [place] [address] Lary Soto CMA Encounter for screening mammogram for malignant neoplasm of kkowgy2206/21/2025 Refill [facility] Medicine [address] [place] [address] Robert Hathaway, DO Anxiety; Complex tear of medial meniscus of left knee, sscgreq0906/21/2025Refill [facility] [address] [place] [address] Robert Hathaway, DO Complex tear of medial meniscus of left knee, exgekkb7906/19/2025Refill [facility] [address] [place] [address] Robert Hathaway, DO Hfrjflq6206/18/2025Orders Only [facility] [address] [place] [address] Lary Soto CMA Ex-cigarette novmdi1806/17/2025 1:30 PM EDTOffice Visit [facility] [address] [place] [address] Robert Hathaway, Generalized anxiety disorder (Primary Dx); Aftercare following left knee joint replacement surgery; Ex-cigarette smoker; Encounter for screening mammogram for malignant neoplasm of breast; Diabetes mellitus without complication ([facility])06/17/2025Refill [facility] [address] [place] [address] Robert Hathaway, 06/17/20251204Iwffay86/28/2025Refill [facility] [address] [place] [address] Robert Hathaway, 06/11/2025Orders Only [facility] [address] [place] [address] Ref Prov, Not In System 06/07/2025Telephone [facility] [address] [place] [address] Ramona Silva, [facility] 06/02/2025Orders Only [facility] [address] [place] [address] Ref Prov, Not In System 05/28/2025Orders Only [facility] [address] [place] [address] Robert Hathaway, DO 05/26/2025Telephone [facility] [address] [place] [address] Ramona Silva, [facility] 05/26/2025Orders Only [facility] [address] [place] [address] Robert Hathaway, Chronic obstructive pulmonary disease, unspecified COPD type ([facility]) (Primary Dx)05/21/2025Refill [facility] [address] [place] [address] Robert Hathaway, Type 2 diabetes mellitus with hyperglycemia, without long-term current use of insulin ([facility])05/20/2025 1:30 PM EDTOffice Visit [facility] [address] [place] [address] Robert Hathaway, Pre-operative clearance (Primary Dx); Complex tear of medial meniscus of left knee, sequela; Essential hypertension; Generalized anxiety disorder; Chronic obstructive pulmonary disease, unspecified COPD type ([facility]); Diabetes mellitus without complication ([facility])05/20/2025Telephone [facility] [address] [place] [address] Ramona Silva CMA 05/19/20257612Yttxre22/01/2025Telephone [facility] [address] [place] [place] [address] Delmy Limon CNA 05/17/2025[facility] [address] [place] [address] Robert Hathaway, DO 05/17/2025[facility] [address] [place] [address] Robert Hathaway, DO Complex tear of medial meniscus of left knee, ydzstdf3905/10/2025[facility] [address] [place] [address] Robert Hathaway, Complex tear of medial meniscus of left knee, rackptv8605/10/2025Telephone [facility] [address] [place] [address] Ramona Silva CMA 05/03/2025Refill [facility] [address] [place] [address] Robert Hathaway, DO Complex tear of medial meniscus of left knee, kyjiswb1404/25/2025Refill [facility] [address] [place] [address] Robert Hathaway, DO Complex tear of medial meniscus of left knee, sequelafrom Last 3 Months Immunizations ImmunizationAdministration DatesNext DueCovid-19,mrna, Lnp-s, Pf, 50mcg/0.5ml 12+ Bccairkf86/24/2024,06/24/2023Hepatitis A1,11/21/2018Influenza (IM) Preservative Free05/12/2024Influenza, Nimwmuhcheo45/06/2023,04/15/2020 Pneumococcal Conjugate 20-qmrzzz7205/12/2024Zoster Vaccine Ijccfukyafi32/24/2024, 03/09/2024 Family History Medical HistoryRelationNameCommentsCancerBrother 1Robertin whole [...] (1 standard drink = 0.6 oz pure alcohol)[facility] UtilitiesAnswerDate RecordedIn the past 12 months has the electric, gas, oil, or water company threatened to shut off services in your home?No07/08/2023Social Connection and Isolation PanelAnswerDate RecordedIn a typical week, how many times do you talk on the phone with family, friends, or neighbors?More than three times a week01/24/2023How often do you get together with friends or relatives?More than three times a week01/24/2023How often do you attend bahai or quaker services?Never01/24/2023o you belong to any clubs or organizations such as bahai groups, unions, fraternal or athletic groups, or school groups?No01/24/2023How often do you attend meetings of the clubs or organizations you belong to?Never01/24/2023re you , , , , never , or living with a partner?Wanfnbeze72/08/2023UDIT-C AnswerDate RecordedQ1: How often do you have [...] like food, housing, medical care, and heating?Patient zolvwozv38/01/2025PHQ-2AnswerDate RecordedTotal Ljlis016[facility] [place] of Occupational Health - Occupational Stress QuestionnaireAnswerDate RecordedDo you feel stress - tense, restless, nervous, or anxious, or unable to sleep at night because yourmind is troubled all the time - these days?To some kqyjry2701/24/2023Exercise Vital Sign AnswerDate RecordedOn average, how many days per week do you engage in moderate to strenuous exercise (like a brisk walk)?4 days01/24/2023On average, how many minutes do you engage in exercise at this level?10 min01/24/2023RAPARE - TransportationAnswerDate RecordedIn the past 12 months, has lack of transportation kept you from medical appointments or from getting medications? Patient ahjnpcqo10/01/2025In the past 12 months, has lack of transportation kept you from meetings, work, or from getting things needed for daily living?Patient szvgpacf22/01/2025Housing InstabilityAnswerDate RecordedAre you worried or concerned that in the next two months you may not have stable housing that you own, rent or stay in as a part of a household?Patient Ecsjzctm24/01/2025 ChildcareAnswerDate RecordedDo problems getting child care cook make it difficult for you to work or study?No01/24/2023EmploymentAnswerDate RecordedDo you need help finding a local career center and/or a training program?No01/24/2023Hunger ScreeningAnswerDate RecordedWithin the past 12 months we worried whether our food would run out before we got money to buy more.Patient Sqheejcn24/30/2025 Within the past 12 months the food we bought just didn't last and we didn't have money to get more.Patient Hpmitqbh93/30/2025Purpose - LifeAnswerDate RecordedI have a purpose and direction in my life.Strongly Agree01/24/2023Comments NoSex and Gender InformationValueDate RecordedSex Assigned at BirthNot on file Legal ZqxFvetok20/06/2015 11:58 AM EDTGender IdentityNot on fileSexual OrientationNot on file Last Filed Vital Signs Vital SignReadingTime TakenCommentsBlood Qzlfboit369/6406/17/2025 1:25 PM EDT Bzlkl226806/17/2025 1:25 PM UQPTawbyzdrwkr50.3 ??C (97.3 ??F)06/17/2025 1:25 PM EDTRespiratory Dnnv3576 1:25 PM EDTOxygen Rmvcwrvrlv041%06/17/2025 1:25 PM EDTInhaled Oxygen Concentration--Cotrml04.2 kg (150 lb 6.4 oz)06/17/2025 1:25 PM VWAEneiyi092.6 cm (5' 4.02 )06/17/2025 1:25 PM EDTBody Mass Index25.8 06/17/2025 1:25 PM EDT Plan of Treatment DateTypeDepartmentCare Team (Latest Contact Info)Nijzdsduusv05/09/2025 2:00 PM ESTOffice Visit [facility] [address] [place] [address] Robert Hathaway, DO [address] [place] [address] 08/05/2025 3:45 PM ESTAppointment [facility] [address] [place] [address] 09/16/2025 1:00 PM ESTOffice Visit [facility] [address] [place] [address] Robert Hathaway, [address], [address] [place] [address] Health MaintenanceDue DateLast DoneCommentsDiabetic Ophthalmology Exam1970 Adult BMI Follow Up Plan1988DTaP,Tdap and Td Vaccines (1 - Tdap)1989 COVID-19 Vaccine (3 - season)/, 06/24/2023Influenza Qffsxsx90, 06/24/2023, 04/15/2020Statin Use: Cardiovascular /09/2024Statin Use: Zdcbsxwz66/09/2024Depression Screening dult BMI Dzukeoatf06Diabetic Foot Exam , 07/08/2023, 10/02/2022Tobacco Pvdeddmmz22/30/2026 06/17/20251537Cynaqyhse06, 09/27/2023, 09/10/2022, Additional history bqsmbiXwmizsqetgo88/05/203306/12/2022Zoster (Shingles) VaccineCompleted 05/12/2024, 03/09/2024ap OyaokCgaabfqzljue99/11/2024 Medical Devices Not on file Procedures Procedure NamePriorityDate/TimeAssociated DiagnosisCommentsMAMM SCREENING BILATERAL W GYLXktvugm57/05/2025 7:16 AM EST Encounter for screening mammogram for malignant neoplasm of breast CT LOW DOSE LUNG MJMDHMHUDKrshrte45/31/2025 10:27 AM EDT Ex-cigarette smoker XR CHEST 1 OBIofdnim63/24/2025 7:26 AM EDTMULTIPLE DZBFYcwjohv06/15/2025 1:02 PM EDTHM QUZPDTGXVMYRbexusf06/05/2023from Last 3 Months or Most Recently Relevant to Health Maintenance Results * Mammography screening bilateral with CAD (06/23/2025 7:16 AM EST)Anatomical RegionLateralityModalityBreastBilateralMammography Narrative Authorizing ProviderResult TypeResult StatusDennis G Furlong DOIMG MAMMOGRAPHY ORDERABLESFinal Result * CT low dose lung screening (Annual) (06/18/2025 10:27 AM EDT)Anatomical Region LateralityModalityBody, Lung, Chest, Body CoveraComputed Tomography Narrative Authorizing ProviderResult TypeResult StatusDennis G Furlong DOIMG CT ORDERABLES Final Result * X-ray chest 1 view (06/11/2025 7:26 AM EDT)Anatomical RegionLateralityModality Body, ChestN/AComputed Radiography Narrative Authorizing ProviderResult TypeResult StatusNot In System Ref ProvIMG DIAGNOSTIC IMAGING ORDERABLESFinal Result * Multiple labs (06/02/2025 1:02 PM EDT) Narrative Authorizing ProviderResult TypeResult StatusNot In System Ref ProvPR IMAGING Final ResultPerforming OrganizationAddressCity/State/ZIP CodePhone Number MANUALLY TRANSCRIBED RESULTS * [facility] COLONOSCOPY (01/21/2023) Narrative Authorizing ProviderResult TypeResult StatusScanning Provider ExternalHEALTH MAINTENANCEFinal ResultPerforming OrganizationAddressCity/State/ZIP CodePhone Number MANUALLY TRANSCRIBED RESULTS from Last 3 Months or Most Recently Relevant to Health Maintenance Insurance Care Teams Team MemberRelationshipSpecialtyStart DateEnd Date Robert Hathaway DO [address], [place] [address] PCP - GeneralFamily Medicine05/10/22
--- OUTSIDE RECORDS SUMMARY | 2025-07-24 12:52 | XMS_ITS | Encounter Summary ---
Author Organization [facility] [employer] [facility] tem Address [id number] [address] [place] [address] Care Team Providers Care Transportation Broker Name Role Phone Robert Hathaway DO Primary Care Provider + [phone] Reason for Visit * ReasonOnset DateCommentsMed Yiewpr3407/24/2025 Encounter Details DateTypeDepartmentCare Team (Latest Contact Info)Wffkvivysrm11/05/2025Refill [facility] Internal Medicine - Family Medicine [address] [place] [phone] Robert Hathaway DO [address], [facility] [place] [address] Social History Tobacco UseTypesPacks/DayYears UsedDateSmoking Tobacco: FormerCigarettes0.836.5 04/15/1988 - 02/17/2025Passive Smoke Exposure: CurrentSmokeless Tobacco: Never Alcohol UseStandard Drinks/WeekCommentsNot Currently0 (1 standard drink = 0.6 oz pure alcohol)[facility] UtilitiesAnswerDate RecordedIn the past 12 months has the electric, gas, oil, or water Contactually threatened to shut off services in your home?No07/08/2023Social Connection and Isolation PanelAnswerDate RecordedIn a typical week, how many times do you talk on the phone with family, friends, or neighbors?More than three times a week01/24/2023How often do you get together with friends or relatives?More than three times a week01/24/2023How often do you attend baptist or mandaeism services?Never01/24/2023o you belong to any clubs or organizations such as baptist groups, unions, fraternal or athletic groups, or school groups?No01/24/2023How often do you attend meetings of the clubs or organizations you belong to?Never01/24/2023re you , , , , never , or living with a partner?Njcmkggif98/08/2023UDIT-C AnswerDate RecordedQ1: How often do you have [...] like food, housing, medical care, and heating?Patient ttzbwyak33/01/2025PHQ-2AnswerDate RecordedTotal Kntvo586[facility] [place] of Occupational Health - Occupational Stress QuestionnaireAnswerDate RecordedDo you feel stress - tense, restless, nervous, or anxious, or unable to sleep at night because yourmind is troubled all the time - these days?To some zpnrgr9701/24/2023Exercise Vital Sign AnswerDate RecordedOn average, how many days per week do you engage in moderate to strenuous exercise (like a brisk walk)?4 days01/24/2023On average, how many minutes do you engage in exercise at this level?10 min01/24/2023RAPARE - TransportationAnswerDate RecordedIn the past 12 months, has lack of transportation kept you from medical appointments or from getting medications? Patient bbkddren98/01/2025In the past 12 months, has lack of transportation kept you from meetings, work, or from getting things needed for daily living?Patient qqpmifej33/01/2025Housing InstabilityAnswerDate RecordedAre you worried or concerned that in the next two months you may not have stable housing that you own, rent or stay in as a part of a household?Patient Quufcrkl89/01/2025 ChildcareAnswerDate RecordedDo problems getting child care teacher make it difficult for you to work or study?No01/24/2023EmploymentAnswerDate RecordedDo you need help finding a local career center and/or a training program?No01/24/2023Hunger ScreeningAnswerDate RecordedWithin the past 12 months we worried whether our food would run out before we got money to buy more.Patient Ivgycqxg41/30/2025 Within the past 12 months the food we bought just didn't last and we didn't have money to get more.Patient Fsbyudmv56/30/2025Purpose - LifeAnswerDate RecordedI have a purpose and direction in my life.Strongly Agree01/24/2023Comments NoSex and Gender InformationValueDate RecordedSex Assigned at BirthNot on file Legal IanPqcrbb92/06/2015 11:58 AM EDTGender IdentityNot on fileSexual OrientationNot on filedocumented as of this encounter Plan of Treatment DateTypeDepartmentCare Team (Latest Contact Info)Uaxtvtbuudx28/09/2025 2:00 PM ESTOffice Visit [facility] [address] [place] [phone] Robert Hathaway DO [address], [facility] [place] [address] 08/05/2025 3:45 PM ESTAppointment [facility] [address] [place] [address] 09/16/2025 1:00 PM ESTOffice Visit [facility] [address] [place] [phone] Robret Hathaway, [address], [facility] [place] [address] documented as of this encounter Visit Diagnoses Not on filedocumented in this encounter Additional Health Concerns AssessmentNoted TimePHQ-9 Depression Total Score: 1:22 PM EDTA Body Mass Index follow-up plan has been documented for the mlvjexr2607/10/2023 3:34 PM ESTdocumented as of this encounter Care Teams Team MemberRelationshipSpecialtyStart DateEnd Date Robert Hathaway DO [address] [facility], [facility] [place] [address] PCP - GeneralFamily Medicine05/10/22documented as of this encounter
--- OUTSIDE RECORDS SUMMARY | 2025-07-24 12:52 | XMS_ITS | Encounter Summary ---
Author Organization [facility] Address [address] [place] [address] Care Team Providers Care Special Weapons Unit Officer Name Role Phone Robert Hathaway MD Primary Care Provider [phone] Encounter Details DateTypeDepartmentCare Team (Latest Contact Info)Ahoslmivdnt04/04/2025Travel Social History Tobacco UseTypesPacks/DayYears UsedDateSmoking Tobacco: FormerCigarettes0.539.9 [...] or more drinks on one occasion?Less than fqekjuw3804/08/2024CommentsNoSex and Gender Information ValueDate RecordedSex Assigned at BssduYavzgk05/06/2024 7:44 PM EDTLegal Sex Jpywsy1810/31/2022 6:42 PM EDTGender RewhspnjPcqobt64/06/2024 7:44 PM EDTSexual OrientationNot on filedocumented as of this encounter Plan of Treatment DateTypeDepartmentCare Team (Latest Contact Info)Blvopmpqpys55/10/2025 2:30 PM ESTTreatment [facility] [address] [place] [address] JezPablito groves, DERMATOLOGY SALES REPRESENTATIVE 09/29/2025 1:00 PM ESTOffice Visit [facility] [address] [facility] [address] [place] [address] Carlos Sanchez MD [address] [facility] [address] [address] documented as of this encounter Visit Diagnoses Not on filedocumented in this encounter Care Teams Team MemberRelationshipSpecialtyStart DateEnd Date Robert Hathaway MD [address], [place] [address] PCP - GeneralFamily Medicine11/19/24documented as of this encounter
--- OUTSIDE RECORDS SUMMARY | 2025-07-24 12:52 | XMS_ITS | Encounter Summary ---
Author Organization [facility] Address [address] [place] [address] Care Team Providers Care Car Hopper Name Role Phone Robert Hathaway MD Primary Care Provider [phone] Encounter Details DateTypeDepartmentCare Team (Latest Contact Info)Ihhxkoellcv35/04/2025amboo flowsheet [facility] [address] [place] [phone] Carlotta Melton, RAMA Social History Tobacco UseTypesPacks/DayYears [...] or more drinks on one occasion?Less than whrvlcq6704/08/2024CommentsNoSex and Gender Information ValueDate RecordedSex Assigned at YohzgCxlyup35/06/2024 7:44 PM EDTLegal Sex Uwouas2710/31/2022 6:42 PM EDTGender LmdbvbciAqziby94/06/2024 7:44 PM EDTSexual OrientationNot on filedocumented as of this encounter Plan of Treatment DateTypeDepartmentCare Team (Latest Contact Info)Mdhvsqelnbb78/10/2025 2:30 PM ESTTreatment [facility] [address] [facility] [address] [place] [phone] Pabilto Bailey, [facility] 09/29/2025 1:00 PM ESTOffice Visit [facility] [address] [facility] [address] [place] [address] Carlos Sanchez MD [address] [facility] [address] [phone] documented as of this encounter Visit Diagnoses Not on filedocumented in this encounter Care Teams Team MemberRelationshipSpecialtyStart DateEnd Date Robert Hathaway MD [address] [facility], [place] [address] PCP - GeneralFamily Medicine11/19/24documented as of this encounter
--- OUTSIDE RECORDS SUMMARY | 2025-07-24 12:52 | XMS_ITS | Clinical Summary ---
Author Organization [facility] Address [address] [place] [address] Care Team Providers Care [employer] Process Technician Name Role Phone Robert Hathaway MD Primary Care Provider [phone] Allergies Active AllergyReactionsCriticalityNoted IyhhYvnoacqpKeuk15/10/2024 Facial numbness/tongue numbness Zridnwjgiuufz09/20/2013 Other Reaction(s): Abnormal Behavior, Mental Status Change, other, Vomiting hallucinate Amoxicillin-Pot ClavulanateNausea And EpuiofoyJdp69/13/2011 Other Reaction(s): GI Disturbance, Unknown, Vomiting TbozmdpzxjgUgjkasmsrivwBiw92/12/2019 Other Reaction(s): Other (See Comments), Unknown (atomoxetine) Atomoxetine EfpBnyygwaezoiaJkcbst93/13/2011 Other Reaction(s): GI Disturbance, Other: See Comments palpitations Aloe-Sodium Wyxvxvvs98/10/2024 Facial numbness/tongue numbness WaadwxsiyXuuzoqyzydnnKimeoj74/13/2011 Other Reaction(s): GI Disturbance, other, Other: See Comments palpitations CodeineHives,EvryLkqv77/13/2011 Other Reaction(s): Other, Unknown Evojkisjfpcro18/29/2012 Other Reaction(s): Hot flashes, other, Unknown Causes whole body to burn (dexamethasone) LwnlfxqzsjwXlstabctbqxjNiohax66/13/2011 Other Reaction(s): GI Disturbance, Other, Other: See Comments, Unknown palpitations Xxglrtmljo16/12/2019Duloxetine Hcl02/25/2023 Other Reaction(s): Unknown Eicosapentaenoic Acid03/13/2017Fish AllergyHives,KqfjLekx59/16/2012Fish Protein- Containing Drug Btykuvea74/16/2105Qsirfehngpa32/19/2014 Other Reaction(s): other, Unknown Fluticasone-SalmeterolItching,Palpitations,SeunZuv3610/08/2012 Other Reaction(s): Unknown KffjmsgusqYsuqcz74/12/2019 Other Reaction(s): Unknown IbuprofenNausea And Vomiting,DzplIks5611/02/2011 Other Reaction(s): GI Disturbance, Unknown Iodinated Contrast WxnlxAcnanaagncoSieq77/19/2024 Patient started to have SOB and felt faint Uowwvzqgb83/13/2015 Other Reaction(s): Other: See Comments Other reaction(s): Other: See Comments Abdominal pain Abdominal pain Ketorolac UcamiyshfmwgToiqd71/10/2011 Severe stomach cramping Gmtjyijjd39/12/2019 Other Reaction(s): Unknown MethadoneNausea And DndeoajgJtg91/13/2011 Other Reaction(s): GI Disturbance, other, Vomiting, Vomiting Other reaction(s): Vomiting Wzrmnitostvni35/27/2023 Other Reaction(s): Other (See Comments), Unknown HoqxwfbhjjoMabsh72/07/2022MoxifloxacinNausea Only,FsdtJea4502/28/2015 Other Reaction(s): Unknown Moxifloxacin Hcl In Nacl11/02/2011NitrofurantoinHives,JscuCrs10/07/2022Other CxbbaAbvk33/19/2014 Other Reaction(s): other OxcarbazepineGI intolerance,Hives,ZyfydllekgzqCetgwo15/13/2011 palpitations DqqoasdxraSozab49/22/0250XffnvecfcmkKxuow84/16/2012 Other Reaction(s): GI Disturbance, Other (See Comments), Unknown, Vomiting, Vomiting, Vomiting Other Reaction(s): other RjnymuqgpxJrldyithzqttOtg06/20/2013 Other Reaction(s): Mental Status Change, other, Unknown hallucinate ArhxbalktuSicwej36/12/2019 Other Reaction(s): Altered mental status Other Reaction(s): Other Shellfish AllergyRash,IevruUcrl22/16/2012 Other Reaction(s): rash Yujivtbcbziwbjil33/04/2022 Other Reaction(s): Other (See Comments), Unknown Sulfamethoxazole-Khthclrjixeg80/12/2019 Other Reaction(s): Vomiting TopiramateGI nwgfdytzvmp34/22/2023Valproic Acid07/30/2019 Other Reaction(s): Alopecia, Unknown VerapamilGI sksfzchasaz23/13/2015Wound Dressing ZmaofrhsRvkfWli06/16/2012 Other Reaction(s): other Other Reaction(s): Other rash Other Reaction(s): Other (See Comments) rash Other Reaction(s): other ??Other Reaction(s): Other ??rash AozmmnatkudHzndvqruanqnVej65/13/2011 Other Reaction(s): other, Unknown Ziprasidone HclHives,ZkzumtagkvwpChibvr43/19/2014 palpitations Medications MedicationSigDispense QuantityRefillsLast FilledStart DateEnd DateStatus [...] before bedtime.01/03/2023ctive ergocalciferol (Vitamin D2) 1.25 MG (99106 UT) capsule Take 1 capsule by mouth 1 (one) time per week.Active ondansetron (Zofran) 4 MG tablet TAKE 1 TABLET BY MOUTH EVERY 12 HOURS FOR 10 DAYS NEEDED FOR NAUSEA AND ZLQGRAEH61/13/2023ctive omeprazole (PriLOSEC) [address] capsule Take [...] 10 mg by mouth Daily03/27/2024ctive nystatin (Mycostatin) 890569 UNIT/ML suspension TAKE 5ML BY MOUTH FOUR [...] SKIN EVERY 30 (THIRTY) DAYS 1.5 mL 110/6Active doxepin (Silenor) 3 MG tablet Indications:Primary insomniaTake [...] THEDAY WITH PLAIN WATER 4 tablet 5Active suvorexant (Belsomra) 5 MG tablet Indications:Primary insomniaTake 1 tablet (5 mg) by mouth as needed at bedtime for sleep 30 tablet tiveHospital, Clinic, or Other Facility Administered Medication Ordered DoseRouteFrequencyStart DateEnd DateStatus lidocaine (Xylocaine) 5 % ointment Indications:Lumbar nlgbrqjxouixbFFADdgi50/29/2025tive Active Problems ProblemNoted DateDiagnosed DateFormer pngqam1906/21/2025History of lithotripsy 06/21/2025 Overview (06/21/2025): 1995 Hypoxemia associated with sleep06/21/2025Nicotine dependence in remission 06/21/2025Pulmonary zqzmclmdnyur45/03/2025Right ankle ohbzgy5806/21/2025Shortness of rtxswe3106/21/2025Status post total left knee lcokpberygi91/16/2025Primary osteoarthritis of both knees05/20/2025Primary /11/2025Onychomycosis 12/25/2024Peripheral arterial htluoud1710/26/2024hronic pain of left knee 05/20/2024heumatoid factor lnrkrdoy93/30/2024iastolic shmdeogwkdo64/21/2024 History of carpal tunnel krvgioq6904/08/2024History of sinus agvftjl5204/08/2024 Jszfdhlbrgo54/21/2024Nicotine dependence, cigarettes, kwjefxtqlrftx82/21/2024 Carpal tunnel /23/2024Enthesopathy of elbow03/10/2024Lesion of left ulnar nerve03/10/2024enign paroxysmal positional vertigo due to bilateral vestibular hutxzxqr97/03/2024History of UTI11/20/2023OAB (overactive bladder) 10/03/2023Gross ewtpqjygj43/15/2024Lesion of ulnar nerve, zwzyvvawf73/20/2023 Abnormality of gait and ozyueper38/13/2023Lumbar degenerative disc disease 06/24/2023ubital tunnel syndrome, spcgbqryo75/02/2023ervical paraspinal muscle spasm05/02/2023Lumbar obybhsjlzkanp10/14/2023Restless leg gixxbxwr76/14/2023 Drug-induced cejdozzixdzv11/14/2023Sacral ivjsjonbq24/17/2023Lumbar strain, uczeldy9304/04/2023hange in bowel rxbyqx5202/25/2023astric foreign body02/25/2023 Contracture, right ankle02/25/2023olon polyp02/25/20232590Rhqljhxi63/10/2023 Lhmuqurdf72/10/2023Urinary /10/2023Urge gwbdntambdgj18/10/2023Flank pain02/25/2023ilateral low back pain with tvlgqqsy05/10/2023Osteoporosis 02/25/20237673Vugugwchyn69/10/2023MI 30.0-30.9,adult02/25/2023Nausea and vomiting 02/25/20236839Iipwmnief77/10/2603Mxnoqutu68/10/2023Incomplete emptying of bladder 02/25/2023History of kidney hwzird4302/25/20236715Pyjprgvabqw82/10/2023ompression injury of nerve02/25/2023 Overview (02/25/2023): pinched nerve in back also Family history of colorectal qtrvqh3702/25/2023Screen for colon oucabf3202/25/2023 Edpkskq6702/25/2023iabetes mellitus without ztbdkbabsgju44/10/2023eformity of /10/0671Spvnwxpozw55/08/2023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 early oioqtumhr22/18/2023TMJ vfevrcysoq35/27/2023 Tertiary contraction of jsuspfjnq03/27/2023Tarsal tunnel dbkigmty53/27/2023Sleep apnea11/12/2022 Overview (02/25/2023): does not use cpap any longerpt uses CPAP does not use cpap any longerpt uses CPAP does not use cpap any longerpt uses CPAP Plantar fasciitis, yaolkxacy58/27/2023ersonality ajaeofqh41/27/2023Morton's neuroma of both feet11/12/2022Loose oeliuu6511/12/20229783Ltjlsawjadai39/27/2023Mixed incontinence urge and nlwxlb1211/12/20228209Hdxojudyhorg30/27/2023Hammer toes of both feet11/12/2022astric ifnsxxkv02/27/2023Feeling of incomplete bladder emptying 11/12/20220072Cfyhyvxaa41/27/2023Encounter for medication msdekjvqxn93/06/2023 Altered bowel zmchlufl81/03/2022Esophageal sjnwrafgicn74/03/2022Gastric bezoar 05/21/2022Urethral otlenplnh12/03/2022tress incontinence of urine05/21/2022 Lkeoskhy97/03/2022Peripheral venous umhveyainefyc57/03/2022steochondritis dissecans of right ankle05/21/2022besity with body mass index 30 or greater 05/21/20226311Rrdgfoytkbkc11/03/2022History of renal sgzybiu21/03/2022Dysphagia 2Difficulty jlpljuz34/03/2022Diabetic peripheral lzpekbkbtt17/03/2022 Current ifydeb7110/10/2021 Overview (02/25/2023): Added secondary to documentation in Social History. Added secondary to documentation in Social History. Added secondary to documentation in Social History. Type 2 diabetes /22/2022Irritable bowel syndrome with diarrhea 10/10/2021Essential nwwbafhbytqg71/22/2022ttention deficit hyperactivity xcfdipfm28/17/2022orderline personality zjrlofjk00/17/2218Kyfqbdu78/17/2022 Jsvdmagbkb27/17/2022Posttraumatic stress viahfjvv43/17/2022Obsessive-compulsive /17/2022llergic tmcltvih80/27/6582Dxhzbmwait04/28/2021arotid gland navjosnnbhh24/28/3466Xylpmoxmfvhz87/25/2020Chronic back pain04/12/2020 Liworzzpeisrki96/25/2020Lumbar rvztryrwxcj04/09/2020Disorder of ultolf4701/26/2020 Lumbosacral spondylosis without cvriypxgdj61/21/2020 Overview (02/25/2023): Added automatically from request for surgery [id number] Chronic, continuous use of ekbkubv1202/28/2015History of gastroesophageal reflux (GERD)02/28/2015History of nzcqkivcppdj65/13/2015History of ubupeuwwyx30/13/2015 History of bipolar jqkvnwoy80/13/2015History of COPD02/28/2015History of attention deficit hyperactivity disorder (ADHD)02/28/2015History of anxiety ahsdvlhe95/13/2015Gastroesophageal reflux pnbmvgn7010/23/2013ipolar disorder 10/23/2013Chronic obstructive lung fnwkoqt1210/23/20137658Xdvjvrzk00/07/2014Mitral valve yyjncbqq81/07/2014Kidney stone10/23/2013Generalized osteoarthritis 10/23/2013Generalized anxiety iwnsahhc69/07/6259Ttytfcxktiztr14/07/2014 Ununapbrdbjsgp03/07/2014icipital txkhfxnfvfews64/06/2014 Overview (02/25/2023): LEFT Degenerative joint disease of shoulder aprknp7610/22/2013 Overview (02/25/2023): BILATERAL Left shoulder pain10/22/2013Disorder of bursae of shoulder cubzyr2510/22/2013 Overview (02/25/2023): BILATERAL Xoquganb03/20/6287Bxddnnve15/02/2012Neck pain09/20/2011Leg pain, bilateral 09/20/2011nxiety state09/13/3603Wlpoxvf95/13/2011Chronic lynbrxufae08/13/2011 Pain in limb05/01/2011Low back pain05/01/2011 Encounters DateTypeDepartmentCare KgkpHymopazurcz22/04/2025 12:00 PM ESTTreatment [facility] [address] [facility] [address] [place] [address] Ryanne Meltonissa, CENTRAL PROCESSING TECH Localized osteoarthritis of left knee (Primary Dx); Presence of left artificial knee joint07/22/2025amboo flowsheet [facility] [address] [facility] [address] [place] [address] Ryanne Meltonissa, CENTRAL PROCESSING TECH 07/22/20258605Lnpjgu69/25/2025 2:30 PM ESTTreatment [facility] [address] [facility] [address] [place] [address] Ryanne Meltonissa, CENTRAL PROCESSING TECH Localized osteoarthritis of left knee (Primary Dx); Presence of left artificial knee joint07/13/2025amboo flowsheet [facility] [address] [facility] [address] [place] [address] Ryanne Meltonissa, CENTRAL PROCESSING TECH 07/13/20252441Ydhdfu00/18/2025 12:30 PM ESTEvaluation [facility] [address] [facility] [address] [place] [address] Gricelda Hammond, PT Presence of left artificial knee joint (Primary Dx); Localized osteoarthritis of left knee07/06/2025Plan of Care Documentation [facility] [address] [facility] [address] [place] [address] 07/06/2025amboo flowsheet [facility] [address] [facility] [address] [place] [address] Gricelda Hammond, PT 07/06/20259459Rkviym17/06/20256355Jdgcgq88/03/2025 2:40 PM ESTOffice Visit [facility] [address] [place] [address] Carlos Sanchez MD Primary ewjdsabo48/03/2025amboo flowsheet [facility] [address] [place] [address] Carlos Sanchez MD 06/21/20252281Ttjivu97/27/2485Rlmksl87/14/2025Telephone [facility] [address] [place] [address] Gricelda Hammond, PT Concerning OP PO PT; dos Telephone [facility] [address] [place] [address] Carlos Sanchez MD 05/17/2025Refill [facility] [address] [place] [phone] David Villalobos, DO Osteopenia after menopausefrom Last 3 Months Immunizations ImmunizationAdministration DatesNext DueHep A, Adult06/02/2019,11/21/2018 Influenza, Wuvcoaflemt83/06/2023,04/15/20203343LOVN-SPT-2 (COVID-19) vaccine, mRNA, spike protein, LNP, PF, 50 mcg/0.5 mL06/24/2023Zoster, Qxzuelfqyar56/22/2024 Family History Medical HistoryRelationNameCommentsAlcohol abuseFatherDiabetesMotherRelationName StatusCommentsFatherDeceasedMotherDeceased Social History Tobacco UseTypesPacks/DayYears UsedDateSmoking Tobacco: FormerCigarettes0.539.9 [...] or more drinks on one occasion?Less than jkojchm19/21/2024CommentsNoSex and Gender Information ValueDate RecordedSex Assigned at TrdgvLptkaz98/06/2024 7:44 PM EDTLegal Sex Abpnsv3810/31/2022 6:42 PM EDTGender NiwnwozuPfbsqh95/06/2024 7:44 PM EDTSexual OrientationNot on file Last Filed Vital Signs Vital SignReadingTime TakenCommentsBlood Skomxryk618/7411 3:03 PM EST Jgskr9926 3:01 PM EDTTemperature--Respiratory Myrj249303/04/2025 1:18 PM EDTOxygen Saturation--Inhaled Oxygen Concentration--Tnlhem25 kg (150 lb) 06/21/2025 3:03 PM SMXBvfxkt484.6 cm (5' 4 )06/21/2025 3:03 PM ESTBody Mass Index25.7506/21/2025 3:03 PM EST Plan of Treatment DateTypeDepartmentCare Team (Latest Contact Info)Eqvovnfdlig40/10/2025 2:30 PM ESTTreatment [facility] [address] [facility] [address] [place] [address] Pablito Bailey PTA 09/29/2025 1:00 PM ESTOffice Visit [facility] [address] [facility] [address] [place] [address] Carlos Sanchez MD [address] [facility] [address] [place] [address] Health MaintenanceDue DateLast DoneCommentsCT Mjexvmnccqir1970FIT-DNA 1970FIT1970FOBT1970 2141Xcimmshysxgqf1970COVID-19 Vaccine (2024- season)2025Influenza Vaccine (#1)509/, 06/24/2023, 04/15/20207531Hxqpkzvdj08, 09/29/2024, 09/27/2023, Additional history existsCervical Cancer Qmwosbbea85/11/2029HPV/Gqkkbv1507/29/2029 Pap Smearolonoscopy/08/2022, 03/14/2020 Colorectal Cancer Nifmpdukg07/01/2033neumococcal Vaccine: Pediatrics (0 to 5 Years) and At-Risk Patients (6 to 64 Years)Aged OutNo longer eligible based on patient's age to complete this topic Procedures Procedure NamePriorityDate/TimeAssociated DiagnosisCommentsMM TOMOSYNTHESIS SCREENING BI09/29/2024 2:44 PM EST PAP VLFXBYovzync55/11/2024 12:00 AM ESTfrom Last 3 Months or Most Recently Relevant to Health Maintenance Results * Pap Smear (07/29/2024 12:00 AM EST)Specimen (Source)Anatomical Location / LateralityCollection Method / VolumeCollection TimeReceived TimeSwabCervical swab / Unknown Narrative Authorizing ProviderResult TypeResult StatusCorey Wilfredo DOLAB CYTOLOGY ORDERABLESFinal ResultPerforming OrganizationAddressCity/State/ZIP CodePhone Number EXTERNAL LAB from Last 3 Months or Most Recently Relevant to Health Maintenance Insurance Care Teams Team MemberRelationshipSpecialtyStart DateEnd Date Robert Hathaway MD [address] [facility] [address] [facility]11/19/24
--- OUTSIDE RECORDS SUMMARY | 2025-07-24 12:53 | XMS_ITS | Clinical Summary ---
Author Organization [facility] Address [address] [place] [address] Care Team Providers Care Manager Of Supply Chain Name Role Phone Robert Hathaway DO Primary Care Provider Allergies Active AllergyReactionsCriticalityNoted VxlmDxjpmcogUgubzoqpQlrxRqc49/16/2012 Adhesive Tape-SiliconesOther,YhyvAvn2708/06/2014 rash CwyqXyrpd68/10/2024 Facial numbness/tongue numbness/ denied AmitriptylineNausea And Vomiting,EjowzHffqwf01/20/2013 Other Reaction(s): Abnormal Behavior, Mental Status Change, other, Vomiting hallucinate hallucinate AtomoxetineGI intolerance,Other,JualfdcjbavpLvyzaq91/13/2011 Other Reaction(s): GI Disturbance, Other: See Comments palpitations Other Reaction(s): Other (See Comments), Unknown (atomoxetine) palpitations (atomoxetine) BupropionGI intolerance,Other,CftdsyvkaviqLizwkj79/13/2011 Other Reaction(s): GI Disturbance, other, Other: See Comments palpitations palpitations CodeineHives,Other,VautJvgx04/13/2011 Other Reaction(s): Other, Unknown Dexamethasone (Pf)Other07/30/2019 Don't remember NlfuywyjfaEkdeqHdcq17/12/2019 Hair fall off DoxycyclineGI intolerance,Other,NkyokqhzhfraQbicer70/13/2011 Other Reaction(s): GI Disturbance, Other, Other: See Comments, Unknown palpitations palpitations DuloxetineHives,Hiwvlpq8807/30/2019 Doesn't remember Eicosapentaenoic YncnGqhxw59/26/2017Fish Containing ProductsHives,RashHigh 03/16/2012Fluticasone Propion-SalmeterolItching,Palpitations,Rash,UnknownLow 10/08/2012 Other Reaction(s): Unknown GabapentinOther,QgnsnpdJuapak78/12/2019 Other Reaction(s): Unknown IbuprofenOther,Nausea And Vomiting,IxluFrv3311/02/2011 Other Reaction(s): GI Disturbance, Unknown Iodinated Contrast PvovxXmsbgbbzluvGnog98/19/2024 Patient started to have SOB and felt faint KetorolacHives,Other,TymiddvAaph13/10/2011 Severe stomach cramping Other Reaction(s): Other: See Comments Other reaction(s): Other: See Comments Abdominal pain Abdominal pain Abdominal pain Other reaction(s): Other: See Comments Abdominal pain MeloxicamNausea And Vomiting,AdzqeouFtfjoo00/12/2019 Other Reaction(s): Unknown MethadoneGI intolerance,Nausea And Vomiting,RqnwqWgo88/13/2011 Other Reaction(s): GI Disturbance, other, Vomiting, Vomiting Other reaction(s): Vomiting Other reaction(s): Vomiting MethocarbamolOther,Ghrgnvl3211/12/2022 Other Reaction(s): Other (See Comments), Unknown MilnacipranHives,Other,Ypavitf3805/25/2022Moxifloxacin-Sod.Chloride(Iso)Unknown 02/28/2015Nitrofurantoin Monohyd/M-CrystOther,MgxwEhs08/07/2022OtherHivesHigh 08/06/2014 Other Reaction(s): other OxcarbazepineGI intolerance,Hives,Other,Palpitations,HqcovapSeyvxc50/13/2011 palpitations ParoxetineHives,Other,YgsapboDhrc60/22/2023PenicillinsGI intolerance,Hives, Nausea And Vomiting,Other,CibtyhpDyq69/13/2011 Other Reaction(s): GI Disturbance, Other (See Comments), Unknown, Vomiting, Vomiting, Vomiting Other Reaction(s): other Other Reaction(s): GI Disturbance, Unknown, Vomiting PregabalinHallucinations,Other,Palpitations,GapspcoJwu68/20/2013 Other Reaction(s): Mental Status Change, other, Unknown hallucinate hallucinate SqzpajpwcgQshydZyhafo95/12/2019 Other Reaction(s): Altered mental status Shellfish Containing WyvshxhdPvevDhh60/12/2019Sodium Chloride-Aloe VeraOther 08/28/2023 Facial numbness/tongue numbness Sulfamethoxazole-TrimethoprimHives,Nausea And SqbvosvzNwye26/12/2019 Other Reaction(s): Vomiting TopiramateGI intolerance,Nausea And Vomiting,Other,AhbwehtBrr51/01/2012Verapamil GI intolerance,Nausea And Vomiting,Other,YmrzctodupeeEie56/20/2013Ziprasidone Hives,Other,Palpitations,ApwnpblAsqttc79/13/2011 palpitations Other Reaction(s): other, Unknown Medications MedicationSigDispense [...] skin every 28 (twenty-eight) days. Next dose -Active rimegepant (Nurtec ODT) 75 mg tablet,disintegrating Take 75 mg by mouth if needed.Active diphenhydrAMINE (BENADryl) 25 mg capsule Take 25 mg by mouth every 6 (six) hours if needed for itching.Active EPINEPHrine (AUVI-Q) 0.15 mg/0.15 mL inj auto-injector injection Inject 1 Syringe into the shoulder, thigh, or buttocks if needed for anaphylaxis.Active oxyCODONE-acetaminophen (Percocet) 5-325 mg tablet Indications:Status post left knee replacementTake 1 tablet by mouth every 6 (SIX) (six) hours if needed for severe pain (8-10 pain score) for upto 5 (FIVE) days 21 tablet 06/09/2025tive aspirin 81 mg EC tablet Indications:Status post left knee replacementTake 1 tablet (81 mg) by mouth in the morning for 28 days. This medication is for prevention of blood clots, not for pain relief. Do not stop taking until prescription runs out. 28 tablet Expired Active Problems ProblemNoted DateDiagnosed DateStatus post total left knee rvpxqelzbie42/16/2025 Left knee pain05/20/2025Primary osteoarthritis of both knees05/20/2025OSA (obstructive sleep apnea)08/03/2024Left arm pain06/16/2024 Encounters DateTypeDepartmentCare BlooPhfvyikafzn49/06/2025Telephone [address] [place] [address] Wilma Golden MA Referral (Physical therapy )06/16/2025 11:30 AM EDTOffice Visit [address] [place] [address] Emiliana Abad MD Status post total left knee replacement (Primary Dx); Left knee pain, unspecified dijyqrqnvq37/29/2025 10:23 AM EDT - 06/16/2025 11:59 PM EDTHospital Encounter [facility] [address] [place] [address] [place] [address] Status post total left knee replacement Discharge Disposition: Home or Self Care (01)06/12/2025[address] [place] [address] Loco Napier MD Status post left knee jlemunlnaid24/22/2025[address] [place] [address] Loco Napier MD Status post left knee lnpvhiskyaz90/21/[address] [place] [address] Dianne Palacios MA Status post left knee ebxmzuycnxr82/16/2025Orders Only [address] [place] [address] Loco Napier MD Status post left knee xtqqwanuapd17/14/2025Telephone [address] [place] [address] Maya Rodriguez, [place] Pain06/01/2025Telephone [address] [place] [address] Maya Rodriguez, RN 06/01/2025Telephone [address] [place] [address] Maya Rodriguez, [place] 05/31/2025 7:31 AM EDTAnesthesia Event [facility] Main Operating Room [address] [place] [address] Uyen Liao MD Meehl, [place], MD 05/31/2025 7:30 AM EDT - 05/31/2025 10:30 AM EDTSurgery [facility] Main Operating Room [address] [place] [address] Emiliana Abad MD ROBOT-ASSISTED KNEE ARTHROPLASTY [10273 (CPT??)]05/31/2025 5:36 AM EDT - 05/31/2025 12:37 PM EDTHospital Encounter [facility] Main Operating Room [address] [place] [address] Emiliana Abad MD Status post left knee replacement (Primary Dx) Discharge Disposition: Home or Self Care ()05/31/20252213Mglavn79/09/2025Patient Outreach [facility] Medical [facility] [address] [place] [address] [place] [address] Светлана Walters LISW-S 05/26/2025 2:30 PM EDTPre-Admission Testing [facility] Pre-Anesthesia Clinic [address] [place] [address] [place] [address] 05/26/2025 2:20 PM EDTLab [facility] Medical [facility] [address] [place] [address] [place] [address] Pre-op evaluation; Clotting npiqndrx60/08/4984Mftwwq99/06/2025Telephone [facility] [place] [address] Maya Rodriguez, [place] 05/18/2025 12:08 PM EDT - 05/18/2025 11:59 PM EDTHospital Encounter [facility] CT Imaging [address] [place] [address] Primary osteoarthritis of both knees Discharge Disposition: Home or Self Care ()05/14/2025bstract [facility] AUTHORIZATION DEPARTMENT [address] [place] [address] Emiliana Abad MD 05/07/2025Telephone [address] [place] [address] Michael Angel MA 05/06/2025Telephone [address] [place] [address] Michael Angel MA 05/05/2025 10:22 AM EDT - 05/05/2025 11:59 PM EDTHospital Encounter [facility] [address] [place] [address] [place] [phone] Left knee pain, unspecified chronicity Discharge Disposition: Home or Self Care ()05/05/2025 10:15 AM EDTFollow-Up [address] [place] [phone] Emiliana Abad MD Primary osteoarthritis of both knees (Primary Dx); Left knee pain, unspecified chronicity; Genu varum of left lower extremity; Weakness of left quadriceps muscle; Parkinson's disease without dyskinesia or fluctuating manifestations (CMS/HCC) 05/03/2025Telephone [address] [place] [phone] Sandra Polanco MA from Last 3 Months Social History Tobacco UseTypesPacks/DayYears UsedDateSmoking Tobacco: FormerCigarettes Smokeless Tobacco: Never Tobacco Cessation:Counseling Given: Not Answered Alcohol UseStandard Drinks/WeekCommentsNot Currently0 (1 standard drink = 0.6 oz pure alcohol)Humiliation, Afraid, Rape, and Kick questionnaireAnswerDate RecordedWithin the last year, have you been afraid of your partner or ex-partner?No11/03/2024Emotionally AbusedNot on file11/03/2024Physically Abused Not on file11/03/2024Sexually AbusedNot on file11/03/2024PHQ-2AnswerDate RecordedPatient Health Questionnaire-2 Iiiwb991UT Safety & Environment AnswerDate RecordedFear of Current or Ex-PartnerNot on 10/10/2023Emotionally AbusedNot on 10/10/2023hysically AbusedNot on file10/10/2023Sexually Abused Not on 10/10/2023hysically or Sexually AbusedNot on 10/10/2023 CommentsNoSex and Gender InformationValueDate RecordedSex Assigned at Gywljb3106/16/2024 3:16 PM EDTLegal AggSgqjgj80/29/2022 9:51 PM EDTGender Identity Oxshhm1606/16/2024 3:16 PM EDTSexual OrientationChoose not to /30/2025 12:08 PM EDT Last Filed Vital Signs Vital SignReadingTime TakenCommentsBlood Vicyphza160/7505/31/2025 12:10 PM EDT Epcew169905/31/2025 12:10 PM NKPRtavlbwmwfl28.6 ??C (97.9 ??F)05/31/2025 9:57 AM EDTRespiratory Sfmk0501 12:10 PM EDTOxygen Cytybbbqof96%05/31/2025 12:10 PM EDTInhaled Oxygen Concentration--Dxmysa91.8 kg (156 lb)06/16/2025 10:28 AM ZQNYjnvzh611.6 cm (5' 4 )06/16/2025 10:28 AM EDTBody Mass Index26.7806/16/2025 10:28 AM EDT Plan of Treatment DateTypeDepartmentCare Team (Latest Contact Info)Xljytclqszs76/28/2026 11:30 AM ESTOffice Visit [facility] [address] [place] [address] [place] [address] Emiliana Abad MD [address] [place] [phone] Health MaintenanceDue DateLast DoneCommentsCT Aryouqdmzdrs1970Diabetes: Hemoglobin A1C1970FIT-DNA1970FIT1970FOBT1970 Vyssjberwridq1970Diabetes: Retinopathy Lkmirmans50/10/1980Hepatitis B Vaccines (1 of 3 - 19+ 3-dose series)1989Adult Uwelziw9107/28/1992HPV/Cotest 2000COVID-19 Vaccine ( season)/, 06/24/2023 Influenza Vaccine (#1)/, 05/12/2024, 06/24/2023, Additional history existsDepression Wuznsiacc98/Diabetes: Urine Protein Cbglrodmu89/, 10/22/20227878Akcotqgxm95/05/202711/5Cervical Cancer Oftnotmrz43/11/2027Pap Smear/2314Qbgljawigpx77/01/2033 01/17/2023, 03/14/2020Colorectal Cancer Anncrqiln28/01/2033neumococcal Vaccine: Pediatrics (0 to 5 Years) and At-Risk Patients (6 to 64 Years)Completed 05/12/2024Zoster TpgxdeygTyuihasep28/24/2024, 03/09/2024HIB VaccinesAged OutNo longer eligible based on patient's age to complete this topicHPV VaccinesAged OutNo longer eligible based on patient's age to complete this topicIPV Vaccines Aged OutNo longer eligible based on patient's age to complete this topic Meningococcal B VaccineAged OutNo longer eligible based on patient's age to complete this topicMeningococcal VaccineAged OutNo longer eligible based on patient's age to complete this topicRotavirus VaccinesAged OutNo longer eligible based on patient's age to complete this topic Medical Devices ImplantedTypeAreaManufacturerDevice IdentifierShelf Expiration DateModel / Serial / LotCement,Bone,R,1x40us - [id number] Implanted:Qty: 1 on 05/31/2025 by [facility]: [id number]/31/2028 [id number] / / [id number],Bone,R,1x40us - [id number] Implanted:Qty: 1 on 05/31/2025 by [facility]Bon CementLeft: [id number]/31/2028 [id number] / / [id number] Base,[place],#3 - [id number] Implanted:Qty: 1 on 05/31/2025 by [facility] JointLeft: [id number] 12/15/[id number]-[id number] / / [id number],Triathlon,X3,57o56or - [id number] Implanted:Qty: 1 on 05/31/2025 by [facility] JointLeft: [id number] 11/01/[id number] / / [id number] Posterior Stabilized Femoral Left Implanted:Qty: 1 on 05/31/2025 by [facility] JointLeft: SeeWhy [id number] / / [id number] X3 Tibial Bearing Insert Ps Implanted:Qty: 1 on 05/31/2025 by [facility] JointLeft: SeeWhy [id number] / / [id number] Procedures Procedure NamePriorityDate/TimeAssociated DiagnosisCommentsXR KNEE 3 VIEWS LEFT Wgjekfu3206/16/2025 10:30 AM EDT Status post total left knee replacement XR KNEE 1-2 VIEWS VOKUTytvjgy02/13/2025 10:38 AM EDT POCT GLUCOSE METER UNSOLICITED LAFZTPPCpvtlmx30/13/2025 10:09 AM EDT MT AN ELECTIVE ENDOTRACHEAL BKCXIRPmosnfc80/13/2025 7:45 AM EDT MT ARTHRP KNE CONDYLE&PLATU MEDIAL&LAT YEMSMSTRZVCX30/13/2025 7:34 AM EDT Left knee pain, unspecified chronicity Primary osteoarthritis of both knees CHG US GUIDANCE NEEDLE PLACEMENT IMG S&TMhgemup68/13/2025 7:14 AM EDT POCT GLUCOSE METER UNSOLICITED ZLPYMMVMdantyo47/13/2025 6:18 AM EDT URINALYSIS MICROSCOPIC WITH REFLEX NXQOTTPMhwtqfr25/08/2025 2:21 PM EDT Pre-op evaluation CBC WITH AUTO SHCNJBVBTSUBGaxthmo52/08/2025 2:21 PM EDT Pre-op evaluation URINALYSIS WITH REFLEX QGVLKEFZnuyegd29/08/2025 2:21 PM EDT Pre-op evaluation TYPE AND DFKNWZAbgkcok21/08/2025 2:21 PM EDT Pre-op evaluation PROTIME-IAMGlstugr88/08/2025 2:21 PM EDT Clotting disorder BPKSTpthajv31/08/2025 2:21 PM EDT Clotting disorder COMPREHENSIVE METABOLIC CCNCALcyvstt28/08/2025 2:21 PM EDT Pre-op evaluation CBC AND ZYMPDVTAFWSIVrtunbj23/08/2025 2:21 PM EDT Pre-op evaluation URINE XHWOWXJDrroucl84/08/2025 2:21 PM EDT Pre-op evaluation MRSA/MSSA DNA UMMKGHaxsnid44/08/2025 2:21 PM EDT Pre-op evaluation CT KNEE LEFT WO IV ZQGZBDSCMblqpwz59/30/2025 12:31 PM EDT Primary osteoarthritis of both knees XR KNEE 4+ VIEWS DPCIBtvhmkm58/17/2025 10:27 AM EDT Left knee pain, unspecified chronicity from Last 3 Months Results * XR knee 3 views left (06/16/2025 10:30 AM EDT)Anatomical RegionLaterality ModalityLower Extremities, KneeLeftComputed RadiographySpecimen (Source) Anatomical Location / LateralityCollection Method / VolumeCollection Time Received Time06/16/2025 1:44 PM EDT Impressions 06/16/2025 1:45 PM EDT * Unchanged knee arthroplasty, no fracture. Resolution of gas in the joint, some minimal residual anterior soft tissue swelling. Electronically signed: Brody Daniels MD. Narrative 06/16/2025 1:45 PM EDT XR KNEE 3 VIEWS LEFT Clinical information: Knee pain, surgery. Comparison: 05/31/25. Procedure Note Brody Daniels MD - 06/16/2025 XR KNEE 3 VIEWS LEFT Clinical information: Knee pain, surgery. Comparison: 05/31/25. IMPRESSION: *Unchanged knee arthroplasty, no fracture. Resolution of gas in thejoint, some minimal residual anterior soft tissue swelling. Electronically signed: Brody Daniels MD. Authorizing ProviderResult TypeResult StatusEmiliana Abad MDST[facility] [place] [facility]ED[facility] Final Result * XR knee 1 or 2 views [...] ComponentValueRef RangeTest MethodAnalysis TimePerformed AtPathologist Signature Glucose UEF514(H)70 - 105 mg/dL05/31/2025 10:20 AM [facility] Comment:dagyziw4Vuonyyqd (Source)Anatomical Location / LateralityCollection Method / VolumeCollection TimeReceived TimeBloodCapillary blood specimen / Ruepkag4505/31/2025 10:09 AM EDT1 10:20 AM EDT Narrative [facility] - 05/31/2025 10:20 AM EDT Waived Testing in the ED is performed under the ED CLIA certificate #[id number]. Authorizing ProviderResult TypeResult Lakesha Abad MDLAB BLOOD ORDERABLESFinal ResultPerforming OrganizationAddressCity/State/ZIP CodePhone Number [facility] [address] [place] [address] * MT AN ELECTIVE ENDOTRACHEAL AIRWAY (05/31/2025 7:45 AM EDT) Narrative Donaldo Perez CAA - 05/31/2025 7:45 AM EDT PADNA Santos 05/31/2025 7:53 AM Airway Date/Time: 05/31/2025 7:45 AM Reason: elective Airway not difficult General Information and Staff Patient location during procedure: OR Anesthesiologist: Uyen Liao MD Resident/MICHELLE/PANDA: PANDA Santos Performed: resident/[employer] ENGINEER/PANDA Patient Condition Indications for airway management: anesthesia [...] induction, before airway management Authorizing ProviderResult TypeResult StatusUyen Liao MDANESTHESIA ORDERABLES Final Result * CHG [...] Staffing Performed: anesthesiologist Anesthesiologist: Uyen Liao MD Resident/[employer] W[employer]OWS ENGINEER: PANDA Santos Preanesthetic Checklist Completed: patient identified, [...] Heart rate change: no Authorizing ProviderResult TypeResult StatusSasamara Yanni MDANESTHESIA ORDERABLES Edited Result - Final * (ABNORMAL) Urinalysis microscopic with reflex culture (05/26/2025 2:21 PM EDT) ComponentValueRef RangeTest MethodAnalysis TimePerformed AtPathologist SignatureRBC, Urine0-2None Seen, 0-2 /HPF05/26/2025 2:55 PM [facility]WBC, Urine0-2None Seen, 0-2 /HPF05/26/2025 2:55 PM [facility]Squamous Epithelial, UrineMany(A)None Seen, Occasional, Few /LP05/26/2025 2:55 PM [facility]Mucus, UrineOccasional None Seen, Occasional, Few /LP05/26/2025 2:55 PM [facility]Specimen (Source)Anatomical Location / LateralityCollection Method / VolumeCollection TimeReceived TimeUrineUrine specimen obtained by clean catch procedure / UnknownNon-blood Collection / Logiwgl7505/26/2025 2:21 PM EDT 05/26/2025 2:35 PM EDT Narrative Authorizing ProviderResult TypeResult StatusVijeff STEVENSON URINE ORDERABLESFinal ResultPerforming OrganizationAddressCity/State/ZIP CodePhone Number [facility] [address] [place] [address] * (ABNORMAL) Urinalysis with reflex culture (05/26/2025 2:21 PM EDT)Component ValueRef RangeTest MethodAnalysis TimePerformed AtPathologist SignatureColor, UrineColorlessColorless, Yellow, Light-Jftsfg1205/26/2025 2:51 PM [facility]Clarity, TkzzqVushhAyxbf17/08/2025 2:51 PM [facility]pH, Urine5.05.0 - 8.0 pH05/26/2025 2:51 PM [facility]Leukocytes, UrineSmall(A)Wafsyxuo29/08/2025 2:51 PM EDT [facility]Nitrite, KghkbCduquzhlOpnvqsdn37/08/2025 2:51 PM EDT [facility]Protein, UrineNegativeNegative mg/dL05/26/2025 2:51 PM [facility]Glucose, UrineNormalNormal mg/dL05/26/2025 2:51 PM [facility]Bilirubin, UrineNegativeNegative 05/26/2025 2:51 PM [facility]Specific [place], Urine1.006 (L)1.010 - 1.2817105/26/2025 2:51 PM [facility]Ketones, Urine NegativeNegative mg/dL05/26/2025 2:51 PM [facility]Blood, TzttlClibqjuwLvygdxrd32/08/2025 2:51 PM [facility] Urobilinogen, UrineNormalNormal mg/dL05/26/2025 2:51 PM [facility]Specimen (Source)Anatomical Location / LateralityCollection Method / VolumeCollection TimeReceived TimeUrineUrine specimen obtained by clean catch procedure / UnknownNon-blood Collection / Osetlul8405/26/2025 2:21 PM EDT 05/26/2025 2:35 PM EDT Narrative Authorizing ProviderResult TypeResult StatusVijeff STEVENSON URINE ORDERABLESFinal ResultPerforming OrganizationAddressCity/State/ZIP CodePhone Number [facility] [address] [place] [address] * (ABNORMAL) CBC auto differential (05/26/2025 2:21 PM EDT)ComponentValueRef RangeTest MethodAnalysis TimePerformed AtPathologist SignatureAuto WBC9.024.00 - 10.60 10*3/uL05/26/2025 2:57 PM [facility]RBC3.883.80 - 5.00 10*6/uL05/26/2025 2:57 PM [facility]Hhcqosouws61.412.0 - 15.0 g/dL05/26/2025 2:57 PM [facility])Doiwtbtftv07.436.0 - 45.0 %05/26/2025 2:57 PM [facility]MCV99.0(H)82.0 - 98.0 fL05/26/2025 2:57 PM [facility]MCH34.5(H)27.0 - 33.0 pg 05/26/2025 2:57 PM [facility]MCHC34.932.0 - 35.0 g/dL 05/26/2025 2:57 PM [facility]RDW13.411.5 - 15.0 %05/26/2025 2:57 PM [facility]Neutrophils %48.740.0 - 72.0 %05/26/2025 2:57 PM [facility]Lymphocytes %41.820.0 - 45.0 %05/26/2025 2:57 PM [facility]Monocytes %7.35.0 - 12.0 %05/26/2025 2:57 PM [facility]Eosinophils %0.80.0 - 6.0 %05/26/2025 2:57 PM [facility]Basophils %1.1(H)0.0 - 1.0 %05/26/2025 2:57 PM [facility]Neutrophils Absolute4.391.60 - 7.60 10*3/uL 05/26/2025 2:57 PM [facility]Lymphocytes Absolute3.771.20 - 4.00 10*3/uL05/26/2025 2:57 PM [facility]Monocytes Absolute 0.660.10 - 1.00 10*3/uL05/26/2025 2:57 PM [facility] Eosinophils Absolute0.070.00 - 0.50 10*3/uL05/26/2025 2:57 PM [facility]Basophils Absolute0.100.00 - 0.20 10*3/uL05/26/2025 2:57 PM EDT [facility]Ledqyqast345604 - 400 10*3/uL05/26/2025 2:57 PM EDT [facility]nRBC %0.00 %05/26/2025 2:57 PM [facility]Immature Granulocytes %0.30.0 - 1.0 %05/26/2025 2:57 PM [facility]Immature Granulocytes Absolute0.030.00 - 0.20 10*3/uL 05/26/2025 2:57 PM [facility]Specimen (Source)Anatomical Location / LateralityCollection Method / VolumeCollection TimeReceived Time BloodVenous blood specimen / UnknownVenipuncture / Wiuprai0305/26/2025 2:21 PM EDT1 2:39 PM EDT Narrative Authorizing ProviderResult TypeResult StatusVijeff Abad MDLAB BLOOD ORDERABLESFinal ResultPerforming OrganizationAddressCity/State/ZIP CodePhone Number [facility] [address] [place] [address] * (ABNORMAL) MRSA nasal swab (05/26/2025 2:21 PM EDT)ComponentValueRef RangeTest MethodAnalysis TimePerformed AtPathologist SignatureMSSA DNANegativeNegative 05/28/2025 7:39 AM [facility]MRSA DNAPositive(A)Negative 05/28/2025 7:39 AM [facility]Specimen (Source)Anatomical Location / LateralityCollection Method / VolumeCollection TimeReceived Time SwabNasal structure / UnknownNon-blood Collection / Adhfltc8705/26/2025 2:21 PM EDT1 2:32 PM EDT Narrative [facility] - 05/28/2025 7:39 AM EDT Testing methodology [...] GENERAL ORDERABLESFinal ResultPerforming OrganizationAddressCity/State/ZIP Code Phone Number [facility] [address] [place] [address] * APTT (05/26/2025 2:21 PM EDT)ComponentValueRef RangeTest MethodAnalysis Time Performed AtPathologist GzafgcwbeyWDV27.425.0 - 35.0 Mjxdbjf6305/26/2025 3:15 PM [facility])Comment:Clinical significance of the APTT is questionable in the presence of heparin.Specimen (Source)Anatomical Location / LateralityCollection Method / VolumeCollection TimeReceived TimeBloodVenous blood specimen / UnknownVenipuncture / Ibcywqm8305/26/2025 2:21 PM EDT1 2:39 PM EDT Narrative Authorizing ProviderResult TypeResult StatusEmiliana Abad [facility] BLOOD ORDERABLESFinal ResultPerforming OrganizationAddressCity/State/ZIP CodePhone Number [facility]) [address], [place] [phone] * Protime-INR (05/26/2025 2:21 PM EDT)ComponentValueRef RangeTest MethodAnalysis TimePerformed AtPathologist FkhwffavlYjmnfow61.012.3 - 14.8 Pjdiiin8505/26/2025 3:14 PM ED[facility])INR0.980.90 - 1.101 3:14 PM EDT [facility] ([place])Comment: [facility] RECOMMENDED INR FOR WARFARIN THERAPY CONDITION ?INR [...] TimeReceived TimeBloodVenous blood specimen / UnknownVenipuncture / Wfbovvt1505/26/2025 2:21 PM EDT1 2:39 PM EDT Narrative Authorizing ProviderResult TypeResult StatusEmiliana STEVENSON BLOOD ORDERABLESFinal ResultPerforming OrganizationAddressCity/State/ZIP CodePhone Number [facility] ([place] [address] [place] [address] * Type and screen (05/26/2025 2:21 PM EDT)ComponentValueRef RangeTest Method Analysis TimePerformed AtPathologist SignatureABO MuuvsfveV98/08/2025 3:55 PM [facility] EwhzKPZ4605/26/2025 3:55 PM [facility]Ab ScrnNEG 05/26/2025 3:55 PM [facility] BLO[facility] BANKSpecimen (Source)Anatomical Location / LateralityCollection Method / VolumeCollection TimeReceived TimeBloodVenous blood specimen / UnknownVenipuncture / Debyimy5505/26/2025 2:21 PM EDT1 2:40 PM EDT Narrative Authorizing ProviderResult TypeResult StatusEmiliana STEVENSON BLOOD BANK TEST ORDERABLESFinal ResultPerforming OrganizationAddressCity/State/ZIP CodePhone Number [facility] * Urine culture, routine (05/26/2025 2:21 PM EDT)ComponentValueRef RangeTest MethodAnalysis TimePerformed AtPathologist SignatureUrine Culture<10,000 CFU/ML No Significant Growth LONA 05/28/2025 8:14 AM [facility] ([place])Specimen (Source)Anatomical Location / LateralityCollection Method / VolumeCollection TimeReceived TimeUrine Urine specimen obtained by clean catch procedure / UnknownNon-blood Collection / Upahabc7705/26/2025 2:21 PM EDT1 2:35 PM EDT Narrative Authorizing ProviderResult TypeResult StatusEmiliana STEVENSON MICROBIOLOGY - GENERAL ORDERABLESFinal ResultPerforming OrganizationAddressCity/State/ZIP Code Phone Number [facility] ([place]) [address] [place] [address] * (ABNORMAL) Comprehensive metabolic panel (05/26/2025 2:21 PM EDT)Component ValueRef RangeTest MethodAnalysis TimePerformed AtPathologist SignatureSodium 659568 - 145 mmol/L1 3:10 PM [facility])Potassium 4.03.5 - 5.1 mmol/L1 3:10 PM [facility])Czgzquys939 98 - 107 mmol/L1 3:10 PM [facility])OA39373 - 31 mmol/L1 3:10 PM [facility])Anion Atj596 - 20 mmol/L 05/26/2025 3:10 PM [facility])BUN6(L)7 - 25 mg/dL05/26/2025 3:10 PM [facility])Creatinine1.050.60 - 1.20 mg/dL05/26/2025 3:10 PM [facility]BUN/Creatinine Ratio5.710 3:10 PM [facility])Wfepbtk219(H)70 - 100 mg/dL05/26/2025 3:10 PM EDT [facility])Calcium9.78.6 - 10.3 mg/dL05/26/2025 3:10 PM [facility])IXV1175 - 39 U/L1 3:10 PM [facility])ALT (SGPT)237 - 52 U/L1 3:10 PM [facility] Alkaline Mozzcuxzqrx9604 - 104 U/L1 3:10 PM [facility])Total Protein7.56.0 - 8.3 g/dL05/26/2025 3:10 PM [facility])Albumin4.63.5 - 5.7 g/dL05/26/2025 3:10 PM [facility])Total Bilirubin0.70.3 - 1.0 mg/dL05/26/2025 3:10 PM [facility] ([place])eGFR63.1>60.0 mL/min/1.73m* 3:10 PM [facility] ([place])Comment:[facility]???s estimated glomerular filtration rate (eGFR) will [...] STEVENSON BLOOD ORDERABLESFinal ResultPerforming OrganizationAddressCity/State/ZIP CodePhone Number [facility] ([place]) [place] [address] * CT knee left wo IV contrast [...] Electronically signed: Jean-Pierre Silvestre. Authorizing ProviderResult TypeResult Lakesha Abad MDG CT PROCEDURES Final Result * XR knee [...] Electronically signed: Sami Grider. Authorizing ProviderResult TypeResult Lakesha GANG XR PROCEDURES Final Result from Last 3 Months Additional Health Concerns InfectionOnset DateLast [id number] Insurance Care Teams Team MemberRelationshipSpecialtyStart DateEnd Date Robert Hathaway DO [address] [facility], [place] [address] [facility]
--- OUTSIDE RECORDS SUMMARY | 2025-07-24 12:53 | XMS_ITS | Clinical Summary ---
Author Organization [facility] Address [address], [address] [place] [address] Care Team Providers Care Thermal Cutter Hand Name Role Phone Robert Hathaway DO Primary Care Provider Allergies Active AllergyReactionsCriticalityNoted DateCommentsAmoxicillin-Pot Clavulanate Nausea And NoxukedqSue16/13/2011Moxifloxacin Hcl In Nacl11/02/2011Verapamil Nausea And WkzdiajsJcm29/20/9864AlpqpjnEqlom28/13/1232Aqzklnttsmqjb47/29/2012 Causes whole body to burn ZrtalfvjyzbMszyqfhcnwniWbo75/13/0150Dqbxcimhjzivh18/20/2013Fish Protein- Containing Drug Axdsgefb55/16/2012Fluticasone-SalmeterolPalpitationsLow 10/08/2012Ziprasidone HxklpmvrmqzkkWjiszzwytwvgEzp34/13/2011Ketorolac TromethamineOther (See Comments)06/28/2011 Severe stomach cramping MethadoneNausea And OjawgjwvTff79/13/2011Ibuprofen MicronizedNausea And Vomiting Low11/02/20116087Bzwusoteqwx09/16/6867WziebnjmvxTueufnrouiodHkd84/20/2013tomoxetine CsdPmanavrxdpxkNto74/13/2011dhesive Tape11/02/2011TopamaxNausea And VomitingLow 05/19/20121776YopgougyvWbqptmoymqshYmg40/13/2011upropion HclPalpitationsLow 05/01/2011 Medications MedicationSigDispense QuantityRefillsLast FilledStart DateEnd [...] tablet by mouth every 6 hours as izwfas6909/02/2012ctive simvastatin (ZOCOR) 40 MG tablet 1 tablet ywkmlcc5609/22/2012ctive docusate sodium (COLACE) 100 MG capsule Take [...] DateLumbosacral spondylosis without myelopathy 06/24/2023Lumbar degenerative disc pybbglo9106/24/2023Myofascial pain syndrome 06/24/2023Neck pain11/08/2012Intractable /20/6540Rlwhvygc96/20/2013 Tujignju47/02/2012Leg pain, dsqenjzde84/02/2012Neck pain, acute09/20/2011Lumbago 05/01/2011Pain in limb05/01/2011nxiety state05/01/2011Depressive disorder, not elsewhere qmegkvfqxb02/13/2011Chronic back painFibromyalgiaBipolar disorder OsteoarthritisBilateral low back pain with sciatica Resolved Problems ProblemNoted DateDiagnosed DateResolved AkeeNzvezrmzsr42 Family History Medical HistoryRelationNameCommentsAlcohol AbuseFatherCancerMaternal Grandmother COPDMotherCancerMotherDiabetesMotherHeart AttackMotherRelationNameStatusComments FatherDeceasedMaternal GrandmotherMotherDeceased Social History Tobacco UseTypesPacks/DayYears UsedDateSmoking Tobacco: Every GdjDqsbfbwgzi554 Started: 11/08/1998; Last attempted to quit: 11/08/2013Smokeless Tobacco: Never Alcohol UseStandard Drinks/WeekCommentsNo0 (1 standard drink = 0.6 oz pure alcohol)CommentsNoSex and Gender InformationValueDate RecordedSex Assigned at BirthNot on fileLegal XclFpwtdc14/10/2013 3:35 PM ESTGender Identity Not on fileSexual OrientationNot on fileOccupationIndustryJob Start DateJob End DateDisabilityNot on fileNot on fileNot on file Last Filed Vital Signs Vital SignReadingTime TakenCommentsBlood Izpmsboc525/7607 12:51 PM EDT Wmgdw534303/04/2024 12:51 PM BJBZwsbkguglxh22.3 ??C (97.3 ??F)06/24/2023 12:57 PM ESTRespiratory Qbuo495003/04/2024 12:51 PM EDTOxygen Saturation5%06/23/2015 1:52 PM ESTInhaled Oxygen Concentration--Jmhqqi91.3 kg (166 lb)03/04/2024 12:51 PM AAADomitt731.6 cm (5' 4 )03/04/2024 12:51 PM EDTBody Mass Index28.4907 12:51 PM EDT Plan of Treatment Health MaintenanceDue DateLast YounFpqczxrdRgsjnv50/10/1980Depression Monitoring 1982HIV wjixxm0707/28/1985Hepatitis C fphnff8507/28/1988DTaP/Tdap/Td vaccine (1 - Tdap)1989Hepatitis B vaccine (1 of 3 - 19+ 3-dose series)1989 Pneumococcal 50+ years Vaccine (1 of 2 - PCV)07/28/19894636Ojtcxwfeutd00/10/2015 Colorectal Cancer Fbhjyv8307/28/2015FIT/FOBT: Average risk2015Fecal-DNA (Cologuard): Average risk2015Sigmoidoscopy/CT wuehxstogagx95/10/2015 Shingles vaccine (1 of 2)2020Breast cancer cfrata22/23/450354/, 08/29/2022Flu vaccine (#1)/01/2023, 04/15/2020COVID-19 Vaccine (2 - [...] Date Robert Hathaway DO [address] [place] [id number] [facility] - [facility]
== END 2025-07-24 14:47 | disposition home or self-care (01) ==
PROVIDERS: Emergency Provider Emergency Medicine; PCP Family Medicine
DX: M25.511 Pain in right shoulder (principal)
CPT/HCPCS: 73030; 93005; 99283; 99284